=== PATIENT | male | born 1960 | race Caucasian/White ===

== ENCOUNTER → 2020-09-01 09:07 | Outpatient (BNVA) | payer MEDICARE, SELFPAY | PROVIDERS: PCP Internal Medicine; Visit Provider Physician Assistant | DX: Z76.89 Persons encountering health services in other specified circumstances (principal) ==

== ENCOUNTER → 2020-09-12 08:08 | Outpatient (BNVA) | payer MEDICARE, SELFPAY | PROVIDERS: PCP Internal Medicine; Referring Provider Internal Medicine; Visit Provider Dietitian, Registered | DX: Z76.89 Persons encountering health services in other specified circumstances (principal) ==

== ENCOUNTER → 2022-08-14 11:19 | Outpatient (BNVA) | payer MEDICARE, SELFPAY | PROVIDERS: PCP Nurse Practitioner Adult Health; Visit Provider Physician Assistant Surgical | DX: E66.3 Overweight (principal); Z90.3 Acquired absence of stomach [part of]; Z68.28 Body mass index [BMI] 28.0-28.9, adult | CPT/HCPCS: 99212 ==

== ENCOUNTER 2022-08-16 06:44 | Outpatient (REF) | payer MEDICARE, SELFPAY ==
[2022-08-16 06:49] LABS: MANUAL DIFF FLAG NO
[2022-08-16 08:03] LABS: Basophils Absolute Auto 0.1 X10*3/uL (0.0-0.2); Basophils Percent Auto 0.7 % (0-2); Eosinophils Absolute Auto 0.2 X10*3/uL (0.0-0.4); Eosinophils Percent Auto 2.1 % (0-4); Hematocrit 39.1 % (42.0-52.0); Hemoglobin 13.2 g/dl (14.0-18.0); Imm Gran Abs Auto 0.04 X10*3/uL (0.00-0.03); Imm Gran Pct Auto 0.6 % (0.0-0.4); Lymphocytes Absolute Auto 1.5 X10*3/uL (1.2-4.9); Mean Corpuscular HGB Conc 33.8 g/dl (31.0-36.0); Mean Corpuscular Hemoglobin 31.1 pg (27.0-33.0); Mean Platelet Volume 10.5 fL (9.4-12.4); Monocytes Absolute Auto 0.6 X10*3/uL (0.1-1.2); Neutrophils Absolute Auto 4.7 x10*3/uL (2.0-8.3); Neutrophils Percent Auto 66.6 % (45-73); Platelet Count 234 X10*3/uL (160-400); Red Blood Count 4.25 X10*6/uL (4.60-5.80); Red Cell Distribution Width 13.7 % (11.0-16.0)
[2022-08-16 08:18] LABS: Estimated Average Glucose 134 mg/dL; Hemoglobin A1c % 6.3 %
[2022-08-16 11:46] LABS: Folate 6.3 ng/mL (> or = 4.0); Vitamin B12 366 pg/mL (200-900)
[2022-08-16 14:55] LABS: Alanine Aminotransferase 11 U/L (0-40); Albumin Level 4.4 g/dL (3.5-5.0); Alkaline Phosphatase 76 U/L (39-117); Anion Gap 18 (12-20); Aspartate Amino Transferase 13 U/L (5-37); Bilirubin Total 0.5 mg/dL (0.0-1.0); Blood Urea Nitrogen 26 mg/dL (9-16); C Reactive Protein 0.46 mg/dL (< or = 0.50); Calcium 9.7 mg/dL (8.4-10.2); Carbon Dioxide 32 mmol/L (22-29); Chloride 103 mmol/L (96-108); Cholesterol 168 mg/dL; Estimated Glomerular Filt Rate 59; Ferritin 103 ng/mL (20-250); Glucose Random 125 mg/dL (60-115); HDL Cholesterol 74 mg/dL; Insulin 2 uU/mL (2-29); Iron 100 mcg/dL (45-160); LDL Cholesterol Calculated 78 mg/dl; Percent Iron Saturation 33 % (15-50); Potassium 4.5 mmol/L (3.3-5.1); Sodium 148 mmol/L (135-145); TSH reflex Free T4 4.11 uIU/mL (0.32-4.0); Total Iron Binding Capacity 301 mcg/dL (228-428); Total Protein 7.1 g/dL (6.5-8.0); Triglycerides 80 mg/dL; Unsaturated Iron Binding 201 ug/dL; Vitamin D 25-OH Total 38.6 ng/mL (>30)
[2022-08-16 16:04] LABS: Free T4 (Free Thyroxine) 0.93 ng/dL (0.71-1.85)
[2022-08-18 11:56] LABS: Calcium (PTHI) 9.5 mg/dL (8.6-10.3); PTHI 43 pg/mL (16-77)
[2022-08-21 06:47] LABS: Zinc 106 mcg/dL (60-130)
[2022-08-22 12:56] LABS: Vitamin B1 14 nmol/L (8-30)
[2022-08-23 19:41] LABS: Vitamin A 82 mcg/dL (38-98)
== END 2022-08-16 06:45 | disposition home or self-care (01) ==
LOC: HO.LAB 06:44
PROVIDERS: PCP Internal Medicine; Visit Provider Physician Assistant Surgical
DX: K91.2 Postsurgical malabsorption, not elsewhere classified (principal); Z90.3 Acquired absence of stomach [part of]
CPT/HCPCS: 36415; 80053; 80061; 82306; 82607; 82728; 82746; 83036; 83525; 83540; 83970; 84425; 84439; 84443; 84590; 84630; 85025; 86140

== ENCOUNTER 2022-08-23 09:47 | Outpatient (RCR) | payer MEDICARE, SELFPAY | END 2022-08-27 14:15 | disposition home or self-care (01) | LOC: HO.WCC 09:47 | PROVIDERS: PCP Internal Medicine; Visit Provider Physician Assistant | DX: Z09 Encounter for follow-up examination after completed treatment for conditions other than malignant neoplasm (principal); E11.610 Type 2 diabetes mellitus with diabetic neuropathic arthropathy; I10 Essential (primary) hypertension; I73.9 Peripheral vascular disease, unspecified; Z89.421 Acquired absence of other right toe(s); Z87.891 Personal history of nicotine dependence; Z79.84 Long term (current) use of oral hypoglycemic drugs; Z86.31 Personal history of diabetic foot ulcer | CPT/HCPCS: 99212 ==

== ENCOUNTER → 2022-09-11 14:00 | Outpatient (BNVA) | payer MEDICARE, SELFPAY | PROVIDERS: PCP Nurse Practitioner Adult Health; Visit Provider Physician Assistant Surgical | DX: E66.3 Overweight (principal); Z90.3 Acquired absence of stomach [part of]; Z68.28 Body mass index [BMI] 28.0-28.9, adult | CPT/HCPCS: 99212 ==

== ENCOUNTER → 2022-09-18 12:50 | Outpatient (BNVA) | payer MEDICARE, SELFPAY | PROVIDERS: PCP Internal Medicine; Visit Provider Internal Medicine | DX: I50.30 Unspecified diastolic (congestive) heart failure (principal); I48.0 Paroxysmal atrial fibrillation; G47.33 Obstructive sleep apnea (adult) (pediatric); Z79.82 Long term (current) use of aspirin; Z95.818 Presence of other cardiac implants and grafts; Z95.0 Presence of cardiac pacemaker | CPT/HCPCS: 93005; 99202 ==

== ENCOUNTER → 2022-09-27 09:21 | Outpatient (REF) | payer MEDICARE, SELFPAY ==
--- NOTE | 2022-09-27 09:24 | CA_ITS ---
Transthoracic Echocardiogram Patient (Last, First, Middle): Luca Crowe, Gender: Male Date of : 1960 Age: 61 Procedure Date: 09/27/2022 Procedure Type: Transthoracic Echocardiogram Location: OP Height: 190.5 cm Weight: 104.33 kg BSA: 2.33 m2 Heart Rate: bpm BP: 118 / 60 mmHg Tray Line Supervisor: Referring MD: Vitaliy Fields MD Brainer: Prudencio Alcantara MD Symptoms: I50.30 - Unspecified diastolic (congestive) heart failure Study Quality: Fair ECG Rhythm: Sinus Conclusions: - 1. Normal LV systolic function with mild LVH with pseudonormal filling pattern 2. Moderately dilated left atrium 3. Mild aortic and mitral regurgitation 4. Normal RV systolic pressure 5. Mildly dilated ascending aorta at 4.1 cm 6. No gross pericardial effusion Findings Left Ventricle Normal left ventricular size and systolic function. There is mildly increased left ventricular wall thickness. The visually estimated ejection fraction is between 60-65%. Spectral Doppler is indicative of a pseudonormal filling pattern. Right Ventricle Normal right ventricular cavity size and systolic function. There is a pacemaker wire seen in the right ventricle. Atria The left atrium is moderately dilated. There is no evidence of interatrial shunt. The right atrium is likely dilated. A pacemaker wire is identified in the right atrium. Aortic Valve There is mild calcification of the aortic valve. There is no aortic valve stenosis. There is trace (trivial) aortic valve regurgitation. Mitral Valve There is mild anterior and posterior mitral leaflet thickening. There is mild mitral valve regurgitation. There is no mitral valve stenosis. Pulmonic Valve The pulmonic valve was not well visualized. Tricuspid Valve Likely normal tricuspid valve structure and function. There is mild tricuspid valve regurgitation. The right ventricular systolic pressure is 31 mmHg. Normal right atrial pressure. There is no evidence of pulmonary hypertension. Great Vessels The pulmonary artery was not well visualized. There is mild dilatation of the ascending aorta measuring 4.10 cm. Venous The inferior vena cava is normal in size and collapses greater than 50% with inspiration. Pericardium/Pleural There is no evidence of pericardial effusion. Prior Study Comparison Changes noted compared to prior study dated: 07/25/2017. LVH is not moderate but mild. mild mitral regurgitation is noted. Ascending aorta is mildly dilated Measurements 2D Linear Measurements IVSd: 1.12 0.6-0.9/0.6-1.0 cm LVIDd: 5.14 3.9-5.3/4.2-5.9 cm LVIDd Index: 2.21 2.4-3.2/2.2-3.1 cm/m2 LVIDs: 3.00 2.0-3.6 cm LVPWd: 1.15 0.7-1.1 cm Ao Root: 4.10 2.1-3.5 cm LA Diam: 3.60 2.7-3.8/3.0-4.0 cm LAIDs Index: 1.55 1.5-2.3 cm/m2 LV Mass: 281.92 67-162/88-224 g LV Mass Index: 120.99 43-95/49-115 g/m2 LVOT Diam: 2.20 3.0+(-)1.3 cm 2D Systolic Function EF 4C: 59.40 >55% EF 2C: 62.30 >55% EF BiP: 61.20 >55% Mitral Valve MV Pk E: 0.94 MV PK A: 0.31 MV Decel Time: 371.00 E/A: 3.10 E'Lateral: 11.40 E'Medial: 9.68 E/E' Med: 9.70 E/E' Lat: 8.20 PHT: 109.00 MVA PHT: 2.02 Decel Candler: 2.52 Aortic Valve AoV Pk Indio: 1.28 AoV Mn Indio: 0.85 AoV VTI: 0.35 AoV Pk Grad: 7.00 Aov Mn Grad: 3.00 NATE Cont.VTI: 3.26 LVOT LVOT Pk Indio: 1.27 LVOT Mn [place]io: 0.82 LVOT VTI: 0.30 LVOT Pk Grad: 6.00 LVOT Mn Grad: 3.00 LVOT Diam: 2.20 LVOT Area: 3.80 Diastolic Function MV Pk E: 0.94 MV Pk A: 0.31 E/A: 3.10 E'Medial: 9.68 E/E' Med: 9.70 E' Laterial: 11.40 E/E' Lat: 8.20 Right Ventricle TAPSE (mm): 35.00 TVS' Indio: 15.00 Tricuspid Valve TR Pk Indio: 2.66 TR Pk Grad: 28.00 RA Press: 3.00 RVSP: 31.00 Great Vessels Aorta Ao Root-2D: 4.10 2.0-3.7 cm Ao Asc: 4.10 2.1-3.4 cm Pulmonary Valve PV Pk Indio: 0.91 Peak PV Grad: 3.00 Updated in Other Vendor System with Status of Final Prudencio Alcantara MD electronically signed on 09/28/2022 3:17:36 PM with status of Final
== END ==
LOC: HO.CARD 09:21
PROVIDERS: PCP Internal Medicine; Visit Provider Internal Medicine
DX: I50.30 Unspecified diastolic (congestive) heart failure (principal)
CPT/HCPCS: 93306

== ENCOUNTER → 2022-10-21 15:46 | Outpatient (BNVA) | payer MEDICARE, SELFPAY | PROVIDERS: PCP Internal Medicine; Visit Provider Physician Assistant Surgical | DX: Z98.84 Bariatric surgery status (principal) | CPT/HCPCS: Q3014 ==

== ENCOUNTER → 2022-12-09 14:36 | Outpatient (BNVA) | payer MEDICARE, SELFPAY | PROVIDERS: PCP Internal Medicine; Referring Provider Internal Medicine; Visit Provider Internal Medicine | DX: I50.30 Unspecified diastolic (congestive) heart failure (principal); I48.0 Paroxysmal atrial fibrillation; G47.33 Obstructive sleep apnea (adult) (pediatric); Z45.018 Encounter for adjustment and management of other part of cardiac pacemaker; Z79.82 Long term (current) use of aspirin | CPT/HCPCS: 93280; 99212 ==

== ENCOUNTER → 2022-12-12 16:22 | Outpatient (BNVA) | payer MEDICARE, SELFPAY | PROVIDERS: PCP Internal Medicine; Visit Provider Physician Assistant Surgical | DX: E66.3 Overweight (principal); Z98.84 Bariatric surgery status | CPT/HCPCS: Q3014 ==

== ENCOUNTER → 2022-12-19 16:04 | Outpatient (BNVA) | payer MEDICARE, SELFPAY | PROVIDERS: PCP Internal Medicine; Visit Provider Physician Assistant Surgical | DX: R11.0 Nausea (principal); E66.3 Overweight; Z68.29 Body mass index [BMI] 29.0-29.9, adult; Z98.84 Bariatric surgery status; Z79.84 Long term (current) use of oral hypoglycemic drugs | CPT/HCPCS: 99212 ==

== ENCOUNTER → 2023-01-17 16:29 | Outpatient (BNVA) | payer MEDICARE, SELFPAY | PROVIDERS: PCP Internal Medicine; Visit Provider Physician Assistant Surgical | DX: R11.0 Nausea (principal); Z98.84 Bariatric surgery status | CPT/HCPCS: 99212; Q3014 ==

== ENCOUNTER 2023-01-20 16:02 | Outpatient (REF) | payer MEDICARE, SELFPAY ==
[2023-01-20 17:38] LABS: MANUAL DIFF FLAG NO
[2023-01-20 18:00] LABS: Basophils Absolute Auto 0.1 X10*3/uL (0.0-0.2); Basophils Percent Auto 0.7 % (0-2); Eosinophils Absolute Auto 0.3 X10*3/uL (0.0-0.4); Eosinophils Percent Auto 4.4 % (0-4); Hematocrit 37.1 % (42.0-52.0); Hemoglobin 12.1 g/dl (14.0-18.0); Imm Gran Abs Auto 0.03 X10*3/uL (0.00-0.03); Imm Gran Pct Auto 0.4 % (0.0-0.4); Lymphocytes Absolute Auto 1.5 X10*3/uL (1.2-4.9); Lymphocytes Percent Auto 21.3 % (20-40); Mean Corpuscular HGB Conc 32.6 g/dl (31.0-36.0); Mean Corpuscular Hemoglobin 30.9 pg (27.0-33.0); Mean Corpuscular Volume 94.9 fL (80.0-98.0); Monocytes Absolute Auto 0.5 X10*3/uL (0.1-1.2); Monocytes Percent Auto 7.4 % (2-11); Neutrophils Absolute Auto 4.6 x10*3/uL (2.0-8.3); Neutrophils Percent Auto 65.8 % (45-73); Platelet Count 230 X10*3/uL (160-400); Red Blood Count 3.91 X10*6/uL (4.60-5.80); Red Cell Distribution Width 13.2 % (11.0-16.0)
[2023-01-20 18:40] LABS: Alanine Aminotransferase 27 U/L (0-40); Albumin Level 4.3 g/dL (3.5-5.0); Alkaline Phosphatase 56 U/L (39-117); Anion Gap 16 (12-20); Aspartate Amino Transferase 26 U/L (5-37); Bilirubin Total 0.5 mg/dL (0.0-1.0); Blood Urea Nitrogen 41 mg/dL (9-16); C Reactive Protein 0.35 mg/dL (< or = 0.50); Calcium 9.3 mg/dL (8.4-10.2); Carbon Dioxide 30 mmol/L (22-29); Chloride 102 mmol/L (96-108); Estimated Glomerular Filt Rate 42; Glucose Random 110 mg/dL (60-115); Iron 72 mcg/dL (45-160); Percent Iron Saturation 24 % (15-50); Potassium 4.6 mmol/L (3.3-5.1); Sodium 143 mmol/L (135-145); Total Iron Binding Capacity 294 mcg/dL (228-428); Total Protein 6.8 g/dL (6.5-8.0); Unsaturated Iron Binding 222 ug/dL
[2023-01-20 19:10] LABS: Ferritin 65 ng/mL (20-250); Insulin 4 uU/mL (2-29); TSH reflex Free T4 3.09 uIU/mL (0.32-4.0); Vitamin B12 291 pg/mL (200-900); Vitamin D 25-OH Total 43.6 ng/mL (>30)
[2023-01-21 05:36] LABS: Estimated Average Glucose 146 mg/dL; Hemoglobin A1c % 6.7 %
[2023-01-23 18:04] LABS: Calcium (PTHI) 9.6 mg/dL (8.6-10.3); PTHI 48 pg/mL (16-77)
[2023-01-27 15:10] LABS: Zinc 53 mcg/dL (60-130)
[2023-01-29 21:58] LABS: Vitamin A 81 mcg/dL (38-98)
[2023-01-30 06:13] LABS: Vitamin B1 9 nmol/L (8-30)
== END 2023-01-20 16:03 | disposition home or self-care (01) ==
LOC: HO.LAB 16:02
PROVIDERS: Visit Provider Physician Assistant Surgical
DX: K91.2 Postsurgical malabsorption, not elsewhere classified (principal); Z98.84 Bariatric surgery status
CPT/HCPCS: 36415; 80053; 82306; 82607; 82728; 82746; 83036; 83525; 83540; 83970; 84425; 84443; 84590; 84630; 85025; 86140

== ENCOUNTER → 2023-03-21 16:15 | Outpatient (BNVA) | payer MEDICARE, SELFPAY | PROVIDERS: PCP Internal Medicine; Visit Provider Physician Assistant Surgical | DX: E66.3 Overweight (principal); Z98.84 Bariatric surgery status | CPT/HCPCS: Q3014 ==

== ENCOUNTER → 2023-05-15 14:53 | Outpatient (REF) | payer MEDICARE, SELFPAY ==
--- NOTE | 2023-05-15 14:56 | HM_ITS ---
Conclusion: 1. Patient was monitored for total period of 3 days 2. Baseline was normal sinus rhythm with average heart rate of 78 beats per minute 3. No significant pauses noted 4. Frequent PVCs noted, mostly isolated with total burden of 3% with 11 nonsustained VT episodes, fastest of 189 beats per minute and longest of 7 beats 5. No patient reported events MTDD
== END ==
LOC: HO.CARD 14:53
PROVIDERS: PCP Internal Medicine; Visit Provider Nurse Practitioner
DX: I48.0 Paroxysmal atrial fibrillation (principal)
CPT/HCPCS: 93242

== ENCOUNTER → 2023-05-15 14:56 | Outpatient (BNV) | payer MEDICARE, SELFPAY | PROVIDERS: PCP Internal Medicine; Visit Provider Internal Medicine Cardiovascular Disease | DX: I49.3 Ventricular premature depolarization (principal) | CPT/HCPCS: 93244 ==

== ENCOUNTER 2023-06-03 15:05 | Outpatient (AMB) | payer MEDICARE, SELFPAY ==
[2023-06-03 15:14] VITALS: BP 130/54; PULSE 50; BMI 29.2
--- NOTE | 2023-06-03 15:14 | MHC.OFFVIS ---
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 Accompanied by: Self / Same As Patient Allergies lisinopril Allergy (Mild, Verified 06/03/23 15:16) kidney trouble Medication List - Last Reconciled 06/03/23 by Vitaliy Fields MD aspirin (Adult Aspirin Regimen) 81 mg PO DAILY bumetanide 2 mg PO DAILY cholecalciferol (vitamin D3) 25 mcg PO DAILY donepezil 10 mg PO DAILY glipizide ER 2.5 mg PO .every other day iron,carbonyl-vitamin C 65 mg iron- 125 mg (Vitron-C) 1 tab PO BEDTIME metformin 1,000 mg PO BID omega 1-snk-vrn-fish oil 1,000 mg (120 mg-180 mg) (Fish Oil) 1 cap PO DAILY pantoprazole 40 mg PO DAILY pravastatin 20 mg PO DAILY pregabalin (Lyrica) 150 mg PO BID zinc gluconate 10 mg PO DAILY HPI HPI Comments History of Present Illness Details Luca returns for follow-up. To recall, he has seen several cardiologists and most recently was following at [facility]. As it is too far and inconvenient, he would like to switch back to us. Prior to this, he also saw [facility]. He has long-standing atrial fibrillation and has had ablation for the same. From that regard, he has been stable. Otherwise, due to gastrointestinal bleeding, he underwent Watchman device as well. Remains on aspirin. Has had bariatric surgery with weight loss. Also has chronic heart failure on long-term diuretics. Overall, he is doing good. No new complaints. No cardiac symptoms at all. [facility] Medical History (Updated 12/19/22 @ 16:44 by POOJA Gautam) (HFpEF) heart failure with preserved ejection fraction History of amputation of toe Hx of cardiac pacemaker Obstructive sleep apnea Pacemaker Paroxysmal atrial fibrillation Presence of Watchman left atrial appendage closure device Surgical History History of amputation of lesser toe Hx of colonoscopy Hx of colonoscopy Hx of foot surgery Hx of gastric bypass Hx of hand surgery Hx of prior ablation treatment Hx of total knee replacement Family History Father Emphysema lung Mother Heart failure Son Ulcerative colitis Brother No problems noted. Sister No problems noted. Sister No problems noted. Social History (Updated 06/03/23 @ 15:17 by Tracy Nieves) Alcohol intake: current Alcohol intake frequency: holidays/special occasions only Patient Tobacco Use Status: Current someday Tobacco user Tobacco use type: Cigar Review of Systems Const Denies weakness ENT Denies dizziness Card Denies chest pain, Denies chest pain with activity, Denies syncope, Denies rapid heart rate, Denies pedal edema, Denies edema, Denies leg edema, Denies lightheadedness, Denies palpitations, Denies dyspnea, Denies dyspnea on exertion and Denies orthopnea Resp Denies cough, Denies dyspnea and Denies dyspnea on exertion GI Denies hematochezia and Denies change in stool character Musc Denies abnormal gait, Denies muscle cramps, Denies muscle weakness, Denies numbness, Denies radiating pain into limb and Denies tingling Neuro Denies abnormal gait, Denies dizziness, Denies syncope, Denies numbness, Denies tingling and Denies weakness Endo Denies palpitations Physical Exam Vital Signs: Last Vital Signs Pulse 50 06/03/23 15:14 BP 130/54 L 06/03/23 15:14 BMI result Body Mass Index 29.2 Const General: comfortable and no acute distress Orientation/consciousness: patient oriented x3 HEENT Other: Unremarkable Head: Yes normal to inspection Neck Neck: Yes normal visual inspection Chest Chest palpation & inspection: normal inspection of the chest Resp Auscultation: clear to auscultation bilaterally Cardio Palpation: normal PMI Heart sounds: S1 normal heart sound present, S2 normal heart sound present, no gallops, no murmurs and no rubs GI Palpation (GI): Soft to palpation Back/Spine/Pelvis Other: unremarkable Skin General skin exam: no rashes or lesions noted Neuro General: patient oriented x3 Extrem Other: 1+ edema General: Yes normal to inspection Psych Mental Status: mental status grossly normal Assessment & Plan Assessment & Plan (1) (HFpEF) heart failure with preserved ejection fraction: Code(s): I50.30 - Unspecified diastolic (congestive) heart failure Plan: Stable. No changes. (2) Paroxysmal atrial fibrillation: Code(s): I48.0 - Paroxysmal atrial fibrillation Plan: No atrial fibrillation on recent Holter. It seems that he was on metoprolol, but due to chronotropic incompetence, stopped at [facility]. Otherwise, no further changes at this time. In the Holter, there is a concern for NSVT but difficult to say as some of these are probably paced beats. Patient himself has absolutely no symptoms. Last perfusion imaging is from 2016 and that showed no ischemic findings. Last echocardiogram is from 08/2022 and that showed preserved LVEF, 60-65%. (3) Presence of Watchman left atrial appendage closure device: Code(s): Z95.818 - Presence of other cardiac implants and grafts Plan: Continue long-term aspirin. (4) Pacemaker: Code(s): Z95.0 - Presence of cardiac pacemaker Plan: Need to transfer device to our practice. Patient states that the remote transmitter is also not working properly. Advised to contact pacemaker company to resolve. (5) Obstructive sleep apnea: Code(s): G47.33 - Obstructive sleep apnea (adult) (pediatric) Plan: On BiPAP. Coding Level of Care Code Est Pt Level 4 (37175) Diagnoses (HFpEF) heart failure with preserved ejection fraction I50.30 Paroxysmal atrial fibrillation I48.0 Presence of Watchman left atrial appendage closure device Z95.818 Pacemaker Z95.0 Obstructive sleep apnea G47.33
== END 2023-06-03 15:38 | disposition home or self-care (01) ==
PROVIDERS: PCP Internal Medicine; Referring Provider Internal Medicine; Visit Provider Internal Medicine
DX: I50.30 Unspecified diastolic (congestive) heart failure (principal); I48.0 Paroxysmal atrial fibrillation; Z95.818 Presence of other cardiac implants and grafts; Z95.0 Presence of cardiac pacemaker; G47.33 Obstructive sleep apnea (adult) (pediatric)
CPT/HCPCS: 99214

== ENCOUNTER → 2023-06-03 15:05 | Outpatient (BNVA) | payer MEDICARE, SELFPAY | PROVIDERS: PCP Internal Medicine; Referring Provider Internal Medicine; Visit Provider Internal Medicine | DX: I50.30 Unspecified diastolic (congestive) heart failure (principal); I48.0 Paroxysmal atrial fibrillation; G47.33 Obstructive sleep apnea (adult) (pediatric); Z95.0 Presence of cardiac pacemaker; Z95.818 Presence of other cardiac implants and grafts | CPT/HCPCS: 99212 ==

== ENCOUNTER 2023-07-08 16:07 | Outpatient (AMB) | payer MEDICARE, SELFPAY ==
--- NOTE | 2023-07-08 16:13 | MHC.OFFVISWM ---
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 [employer] Required: No Allergies lisinopril Allergy (Mild, Verified 07/08/23 16:15) kidney trouble Medication List - Last Reconciled 07/08/23 by POOJA Iqbal aspirin (Adult Aspirin Regimen) 81 mg PO DAILY bumetanide 2 mg PO DAILY cholecalciferol (vitamin D3) 25 mcg PO DAILY donepezil 10 mg PO DAILY glipizide ER 2.5 mg PO .every other day iron,carbonyl-vitamin C 65 mg iron- 125 mg (Vitron-C) 1 tab PO BEDTIME metformin 1,000 mg PO BID omega 6-srx-ysw-fish oil 1,000 mg (120 mg-180 mg) (Fish Oil) 1 cap PO DAILY pantoprazole 40 mg PO DAILY pravastatin 20 mg PO DAILY pregabalin (Lyrica) 150 mg PO BID zinc gluconate 10 mg PO DAILY HPI HPI Comments History of Present Illness Details 62-year-old male presents for 5 year 6 month follow-up of gastric bypass performed 11/11/2017. Taking a bariatric MVI and lucrecia + D No NSAIDS except low dose asa from hx AF w hx of watchman inserted. Started smoking cigars, 1-2 per day 1 etoh beverage nightly with 2 on weekends No abdominal pain. No darkened stools. States his goal is to reach his ideal weight of 220 or 215 pounds. 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 Has gym membership at [employer] [facility] Medical History Obstructive sleep apnea Paroxysmal atrial fibrillation (HFpEF) heart failure with preserved ejection fraction Presence of Watchman left atrial appendage closure device Pacemaker Hx of cardiac pacemaker History of amputation of toe Surgical History Hx of hand surgery Hx of colonoscopy Hx of total knee replacement Hx of gastric bypass History of amputation of lesser toe Hx of colonoscopy Hx of prior ablation treatment Hx of foot surgery Family History Father Emphysema lung Mother Heart failure Son Ulcerative colitis Brother No problems noted. Sister No problems noted. Sister No problems noted. Social History Alcohol intake: current Alcohol intake frequency: a few times a week Patient Tobacco Use Status: Current someday Tobacco user Tobacco use type: Cigar Physical Exam Vital Signs: Last Vital Signs Temp 98.3 F 07/08/23 16:17 Pulse 89 07/08/23 16:17 BP 160/70 H 07/08/23 16:17 Pulse Ox 97 07/08/23 16:17 Oxygen Delivery Method Room Air 07/08/23 16:17 BMI result Body Mass Index 28.5 Const General: healthy appearing and no acute distress Resp Effort & Inspection: normal respiratory effort Auscultation: clear to auscultation bilaterally Cardio Rate: regular rate Rhythm: regular rhythm GI Auscultation: normal bowel sounds Extrem General: Yes normal to inspection Assessment & Plan Assessment & Plan (1) S/P gastric bypass: Code(s): Z98.84 - Bariatric surgery status Plan: Encouraged to stop tobacco and etoh Change meal plan RTD shake in am and apple sandwich/iranian yogurt, eliminate soda 4 oz protein and 4 oz veg Increase cardio at gym RTC for 6 yr follow up in October Coding Level of Care Code Est Pt Level 3 (26828) Diagnoses S/P gastric bypass Z98.84
[2023-07-08 16:17] VITALS: BP 160/70; PULSE 89; TEMP 36.8; O2SAT 97; BMI 28.5
== END 2023-07-08 17:03 | disposition home or self-care (01) ==
PROVIDERS: PCP Internal Medicine; Visit Provider Physician Assistant Surgical
DX: E66.3 Overweight (principal); Z68.28 Body mass index [BMI] 28.0-28.9, adult; Z98.84 Bariatric surgery status
CPT/HCPCS: 99213

== ENCOUNTER → 2023-07-08 16:07 | Outpatient (BNVA) | payer MEDICARE, SELFPAY | PROVIDERS: PCP Internal Medicine; Visit Provider Physician Assistant Surgical | DX: Z98.84 Bariatric surgery status (principal) | CPT/HCPCS: 99212 ==

== ENCOUNTER 2023-12-08 14:54 | Outpatient (AMB) | payer MEDICARE, SELFPAY ==
--- NOTE | 2023-12-08 15:30 | MHC.OFFVIS ---
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 Allergies lisinopril Allergy (Mild, Verified 12/08/23 15:35) kidney trouble Medication List - Last Reconciled 12/08/23 by MICAH Wong amlodipine 10 mg PO DAILY aspirin (Adult Aspirin Regimen) 81 mg PO DAILY bumetanide 2 mg PO DAILY cholecalciferol (vitamin D3) 25 mcg PO DAILY donepezil 10 mg PO DAILY glipizide ER 2.5 mg PO .every other day iron,carbonyl-vitamin C 65 mg iron- 125 mg (Vitron-C) 1 tab PO BEDTIME metformin 1,000 mg PO BID metoprolol succinate ER 25 mg PO DAILY omega 6-xvc-ukd-fish oil 1,000 mg (120 mg-180 mg) (Fish Oil) 1 cap PO DAILY pantoprazole 40 mg PO DAILY pravastatin 20 mg PO DAILY pregabalin (Lyrica) 150 mg PO BID zinc gluconate 10 mg PO DAILY HPI 6 month follow up w/ device check HPI Details Luca is a 63-year-old male with past medical history of hypertension, paroxysmal atrial fibrillation, Watchman device, heart failure with preserved EF, obstructive sleep apnea with CPAP use, pacemaker who presents for follow-up. Today he reports that he had been admitted to the hospital recently with infection in his foot following an injury. He states that during the admission his blood pressure was as high as 170s systolic. He says they added amlodipine and metoprolol. His blood pressure with no concerning symptoms. No chest discomfort, shortness of breath, palpitations, lightheadedness, presyncope, syncope, PND, orthopnea or edema. 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 [facility] Medical History Obstructive sleep apnea Paroxysmal atrial fibrillation (HFpEF) heart failure with preserved ejection fraction Presence of Watchman left atrial appendage closure device Pacemaker Hx of cardiac pacemaker History of amputation of toe Surgical History History of amputation of toe Hx of hand surgery Hx of colonoscopy Hx of total knee replacement Hx of gastric bypass History of amputation of lesser toe Hx of colonoscopy Hx of prior ablation treatment Hx of foot surgery Family History Father Emphysema lung Mother Heart failure Son Ulcerative colitis Brother No problems noted. Sister No problems noted. Sister No problems noted. Social History Alcohol intake: current Alcohol intake frequency: a few times a week Patient Tobacco Use Status: Current someday Tobacco user Tobacco use type: Cigar Review of Systems Const All systems reviewed & are unremarkable except as noted in HPI and below ENT Denies dizziness Card Denies chest pain, Denies chest pain at rest, Denies chest pain with activity, Denies rapid heart rate, Denies pedal edema, Denies edema, Denies leg edema, Denies lightheadedness, Denies palpitations, Denies dyspnea, Denies dyspnea on exertion and Denies orthopnea Resp Denies cough, Denies dyspnea and Denies dyspnea on exertion GI Denies hematochezia and Denies change in stool character Musc Denies abnormal gait, Denies limited range of motion, Denies muscle cramps, Denies muscle weakness, Denies numbness, Denies radiating pain into limb, Denies stiffness and Denies tingling Neuro Denies abnormal gait, Denies dizziness, Denies numbness and Denies tingling Endo Denies palpitations Physical Exam Vital Signs: Last Vital Signs Pulse 64 12/08/23 15:31 BP 120/64 12/08/23 15:31 BMI result Body Mass Index 31.5 Const General: cooperative, healthy appearing, comfortable and no acute distress Orientation/consciousness: patient oriented x3 Neck Neck: Yes normal visual inspection and Yes no JVD Resp Effort & Inspection: normal respiratory effort Auscultation: clear to auscultation bilaterally, no crackles, no rales, no rhonchi and no wheezes Cardio Jugular venous distension: no JVD Rate: regular rate Rhythm: regular rhythm Heart sounds: S1 normal heart sound present, S2 normal heart sound present, no murmurs and no rubs Neuro General: patient oriented x3 Extrem General: Yes normal to inspection, No no pedal edema and No calf tenderness Psych Appearance: grossly normal Mental Status: mental status grossly normal Speech and movement: Normal speech and movement present Office Procedures Cardiac Device Check Cardiac Device Check Details: Today, read by me, Medtronic dual-chamber pacemaker interrogation today, battery 3 years, DDD are mode, low rate 60, V paced 5.7%, a paced 21.4%, underlying sinus rhythm, 3 episodes high V rates, very brief AF, 1 ST/SVT, RA threshold 0.75 volts at 0.4 milliseconds, RV threshold 0.75 volts at 0.4 milliseconds [id number] Cardiac Device Check, pacemaker dual lead Procedure code (CPT) selection complete EKG Details: Today, read by me, atrial paced, ventricular sensed, rate 64, QTC 435 milliseconds [id number], Complete Assessment & Plan Assessment & Plan (1) Paroxysmal atrial fibrillation: Code(s): I48.0 - Paroxysmal atrial fibrillation Plan: History of paroxysmal atrial fibrillation. Currently suppressed. Last Holter monitor done 05/15/2023 showed no AFib. Last echo 09/27/2022 showed EF 60-65%, mild LVH, moderately dilated left atrium, mild AR, mild MR, ascending aorta 4.1 cm. He has not noticing any heart palpitations. Device interrogation today showing only very brief episodes of AF. Will continue on metoprolol for heart rate control. He is not requiring anticoagulation as he has a Watchman device in place. Continue aspirin. (2) Presence of Watchman left atrial appendage closure device: Code(s): Z95.818 - Presence of other cardiac implants and grafts Plan: As above (3) (HFpEF) heart failure with preserved ejection fraction: Code(s): I50.30 - Unspecified diastolic (congestive) heart failure Plan: History of heart failure with preserved EF. No clinical signs of heart failure on examination. He denies any issues with shortness of breath or leg edema. Continue Bumex 2 mg daily. Signs and symptoms of heart failure reviewed with him. (4) Pacemaker: Code(s): Z95.0 - Presence of cardiac pacemaker Plan: Medtronic dual-chamber pacemaker in place. Functioning normally on interrogation today. Next office interrogation due in 6 months. He has a remote monitor which has not been working. He will call the company to request another 1. (5) Obstructive sleep apnea: Code(s): G47.33 - Obstructive sleep apnea (adult) (pediatric) Plan: He reports compliance with his CPAP mask. Plan Time spent on chart review, documentation, interview and assessment Coding Level of Care Code Est Pt Level 4 (55734) Diagnoses Paroxysmal atrial fibrillation I48.0 Presence of Watchman left atrial appendage closure device Z95.818 (HFpEF) heart failure with preserved ejection fraction I50.30 Pacemaker Z95.0 Obstructive sleep apnea G47.33 CPT Codes Cardiac Device Check - Cardiac Device 2: [id number]-VT Cardiac Device Check, pacemaker dual lead ([id number]) EKG - CPT: 98501-[id number], Complete ([id number]) Time Spent (min) 28
[2023-12-08 15:31] VITALS: BP 120/64; PULSE 64; BMI 31.5
== END 2023-12-08 16:17 | disposition home or self-care (01) ==
PROVIDERS: PCP Internal Medicine; Visit Provider Nurse Practitioner Family
DX: I48.0 Paroxysmal atrial fibrillation (principal); Z95.0 Presence of cardiac pacemaker; I50.30 Unspecified diastolic (congestive) heart failure; Z95.818 Presence of other cardiac implants and grafts
CPT/HCPCS: 93280; 99214

== ENCOUNTER → 2023-12-08 14:54 | Outpatient (BNVA) | payer MEDICARE, SELFPAY | PROVIDERS: PCP Internal Medicine; Visit Provider Nurse Practitioner Family | DX: Z45.018 Encounter for adjustment and management of other part of cardiac pacemaker (principal); I48.0 Paroxysmal atrial fibrillation; I50.30 Unspecified diastolic (congestive) heart failure; G47.33 Obstructive sleep apnea (adult) (pediatric); Z95.818 Presence of other cardiac implants and grafts | CPT/HCPCS: 93005; 93280; 99212 ==

== ENCOUNTER 2024-02-28 10:41 | Outpatient (REF) | payer MEDICARE, SELFPAY ==
[2024-02-28 11:36] LABS: B Type Natriuretic Peptide 55 pg/mL (<100)
[2024-02-28 11:38] LABS: Anion Gap 18 (12-20); Blood Urea Nitrogen 50 mg/dL (9-16); Calcium 9.5 mg/dL (8.4-10.2); Carbon Dioxide 29 mmol/L (22-29); Chloride 100 mmol/L (96-108); Estimated Glomerular Filt Rate 40; Glucose Random 227 mg/dL (60-115); Potassium 4.3 mmol/L (3.3-5.1); Sodium 143 mmol/L (135-145)
== END 2024-02-28 10:42 | disposition home or self-care (01) ==
LOC: HO.LAB 10:41
PROVIDERS: PCP Internal Medicine; Visit Provider Nurse Practitioner Family
DX: I50.30 Unspecified diastolic (congestive) heart failure (principal)
CPT/HCPCS: 36415; 80048; 83880

== ENCOUNTER 2024-06-07 14:49 | Outpatient (AMB) | payer MEDICARE, SELFPAY ==
[2024-06-07 15:07] VITALS: BP 126/70; PULSE 72; BMI 29.5
--- NOTE | 2024-06-07 15:07 | MHC.OFFVIS ---
Vital Signs 06/07/24 15:07 Height 6 ft 3 in Weight 235 lb 14.314 oz BMI 29.5 BP 126/70 Blood Pressure Location Lt brachial Position Sitting Pulse 72 Pulse Source Pulse Oximeter Intake Visit Reasons: 6 mth f/up w/ med ck DC Allergies lisinopril Allergy (Mild, Verified 12/08/23 15:35) kidney trouble Medication List - Last Reconciled 06/07/24 by Vitaliy Fields MD amlodipine 10 mg PO DAILY aspirin (Adult Aspirin Regimen) 81 mg PO DAILY bumetanide 2 mg PO DAILY 90 days cholecalciferol (vitamin D3) 25 mcg PO DAILY donepezil 10 mg PO DAILY empagliflozin (Jardiance) 25 mg PO DAILY glipizide ER 2.5 mg PO .every other day metformin 500 mg PO BID metoprolol succinate ER 25 mg PO DAILY omega 8-tuz-sry-fish oil 1,000 mg (120 mg-180 mg) (Fish Oil) 1 cap PO DAILY pantoprazole 40 mg PO DAILY pravastatin 20 mg PO DAILY pregabalin (Lyrica) 150 mg PO BID zinc gluconate 10 mg PO DAILY HPI Comments Details: Luca returns for follow-up. To recall, he has seen several cardiologists and most recently was following at [facility] till around 2021. However, because of the distance involved, he wanted to have local Cardiology and hence started seeing us. He also saw [facility] prior to that. Any case, he has a history of longstanding atrial fibrillation and has undergone several cardioversions and ablations. In addition, history of gastrointestinal bleeding and hence has had Watchman device. History of bariatric surgery with weight loss. Chronic heart failure on long-term diuretics. Overall, he states he is generally okay but today, he is in atrial flutter with rapid rate. In fact, he has been this way for many months. As there is no remote monitoring, we were not aware of this. Some nonspecific symptoms but he states he was not truly aware of this. [facility] Medical History Obstructive sleep apnea Paroxysmal atrial fibrillation (HFpEF) heart failure with preserved ejection fraction Presence of Watchman left atrial appendage closure device Pacemaker Hx of cardiac pacemaker History of amputation of toe Surgical History History of amputation of toe Hx of hand surgery Hx of colonoscopy Hx of total knee replacement Hx of gastric bypass History of amputation of lesser toe Hx of colonoscopy Hx of prior ablation treatment Hx of foot surgery Family History Father Emphysema lung Mother Heart failure Son Ulcerative colitis Brother No problems noted. Sister No problems noted. Sister No problems noted. Social History Alcohol intake: current Alcohol intake frequency: a few times a week Patient Tobacco Use Status: Current someday Tobacco user Tobacco use type: Cigar Review of Systems Const Denies weakness ENT Denies dizziness Card Denies chest pain, Denies chest pain with activity, Denies syncope, Denies rapid heart rate, Denies pedal edema, Denies edema, Denies leg edema, Denies lightheadedness, Denies palpitations, Denies dyspnea, Denies dyspnea on exertion and Denies orthopnea Resp Denies cough, Denies dyspnea and Denies dyspnea on exertion GI Denies hematochezia and Denies change in stool character Musc Denies abnormal gait, Denies muscle cramps, Denies muscle weakness, Denies numbness, Denies radiating pain into limb and Denies tingling Neuro Denies abnormal gait, Denies dizziness, Denies syncope, Denies numbness, Denies tingling and Denies weakness Endo Denies palpitations Physical Exam Vital Signs: Last Vital Signs Pulse 72 06/07/24 15:07 BP 126/70 06/07/24 15:07 BMI result Body Mass Index 29.5 Const General: comfortable and no acute distress Orientation/consciousness: patient oriented x3 HEENT Other: Unremarkable Head: Yes normal to inspection Neck Neck: Yes normal visual inspection Chest Chest palpation & inspection: normal inspection of the chest Resp Auscultation: clear to auscultation bilaterally Cardio Palpation: normal PMI Heart sounds: S1 normal heart sound present, S2 normal heart sound present, no gallops, no murmurs and no rubs GI Palpation (GI): Soft to palpation Back/Spine/Pelvis Other: unremarkable Skin General skin exam: no rashes or lesions noted Neuro General: patient oriented x3 Extrem General: Yes normal to inspection Psych Mental Status: mental status grossly normal Office Procedures EKG Details: EKG with atrial flutter with a rate of 119/Min. [id number]-[id number], Complete Assessment & Plan Assessment & Plan (1) Paroxysmal atrial fibrillation: Code(s): I48.0 - Paroxysmal atrial fibrillation Category: Medical Plan: History of prior cardioversions and ablations. Today, he is in atrial flutter with rapid rate. However, denies any overt symptoms. We will go up on the beta-leeroy dosing. Currently he is on metoprolol 25 mg daily. We can increase that to 100 mg daily. Hold off on Amlodipine to avoid lowering the blood pressure too much. With increase in beta-leeroy dose, we can hopefully at least try to control the rate. Otherwise, he needs definitive therapy which may involve TATIANNA/cardioversion +/-another ablation. As he has had prior EP care from [facility], he would like to return there. I suggested that he contacts them as soon as possible. Last perfusion imaging is from 2016 and that showed no ischemic findings. Last echocardiogram is from 08/2022 and that showed preserved LVEF, 60-65%. (2) (HFpEF) heart failure with preserved ejection fraction: Code(s): I50.30 - Unspecified diastolic (congestive) heart failure Category: Medical Plan: Stable. No changes. (3) Presence of Watchman left atrial appendage closure device: Code(s): Z95.818 - Presence of other cardiac implants and grafts Category: Medical Plan: Continue long-term aspirin. (4) Pacemaker: Code(s): Z95.0 - Presence of cardiac pacemaker Category: Medical Plan: Unfortunately, still does not have remote monitoring set up as he states he just does not work and keeps giving error messages. He will need to contact the support line. (5) Obstructive sleep apnea: Code(s): G47.33 - Obstructive sleep apnea (adult) (pediatric) Category: Medical Plan: On BiPAP. Medications: New metoprolol tartrate 50 mg PO BID 60 tabs 5RF 30 days Coding Level of Care Code Est Pt Level 4 (98031) Diagnoses Paroxysmal atrial fibrillation I48.0 (HFpEF) heart failure with preserved ejection fraction I50.30 Presence of Watchman left atrial appendage closure device Z95.818 Pacemaker Z95.0 Obstructive sleep apnea G47.33 CPT Codes EKG - CPT: 30402-[id number], Complete ([id number])
== END 2024-06-07 15:36 | disposition home or self-care (01) ==
PROVIDERS: PCP Internal Medicine; Visit Provider Internal Medicine
DX: I48.0 Paroxysmal atrial fibrillation (principal); I50.30 Unspecified diastolic (congestive) heart failure; Z95.818 Presence of other cardiac implants and grafts; Z95.0 Presence of cardiac pacemaker; G47.33 Obstructive sleep apnea (adult) (pediatric)
CPT/HCPCS: 93010; 93280; 99214

== ENCOUNTER → 2024-06-07 14:49 | Outpatient (BNVA) | payer MEDICARE, SELFPAY | PROVIDERS: PCP Internal Medicine; Visit Provider Internal Medicine | DX: I48.0 Paroxysmal atrial fibrillation (principal); I50.30 Unspecified diastolic (congestive) heart failure; G47.33 Obstructive sleep apnea (adult) (pediatric); Z45.018 Encounter for adjustment and management of other part of cardiac pacemaker; Z95.818 Presence of other cardiac implants and grafts | CPT/HCPCS: 93005; 93280; 99212 ==

== ENCOUNTER 2024-07-21 16:06 | Outpatient (REF) | payer MEDICARE, SELFPAY ==
[2024-07-21 16:46] LABS: Hematocrit 42.1 % (42.0-52.0); Hemoglobin 14.4 g/dl (14.0-18.0); Mean Corpuscular HGB Conc 34.2 g/dl (31.0-36.0); Mean Corpuscular Hemoglobin 33.7 pg (27.0-33.0); Mean Corpuscular Volume 98.6 fL (80.0-98.0); Mean Platelet Volume 10.8 fL (9.4-12.4); Platelet Count 175 X10*3/uL (160-400); Red Blood Count 4.27 X10*6/uL (4.60-5.80); Red Cell Distribution Width 13.9 % (11.0-16.0); White Blood Count 7.8 X10*3/uL (4.8-10.8)
[2024-07-21 17:09] LABS: Anion Gap 15 (12-20); Blood Urea Nitrogen 47 mg/dL (9-16); Calcium 9.2 mg/dL (8.4-10.2); Carbon Dioxide 29 mmol/L (22-29); Chloride 102 mmol/L (96-108); Estimated Glomerular Filt Rate 54; Glucose Random 259 mg/dL (60-115); Potassium 4.5 mmol/L (3.3-5.1); Sodium 141 mmol/L (135-145)
== END 2024-07-21 16:07 | disposition home or self-care (01) ==
LOC: HO.LAB 16:06
PROVIDERS: PCP Internal Medicine; Visit Provider Internal Medicine
DX: I48.0 Paroxysmal atrial fibrillation (principal)
CPT/HCPCS: 36415; 80048; 85027

== ENCOUNTER → 2024-08-05 13:40 | Outpatient (REF) | payer MEDICARE, SELFPAY ==
--- NOTE | 2024-08-05 13:49 | CA_ITS ---
Transthoracic Echocardiogram Patient (Last, First, Middle): Luca Crowe, Gender: Male Date of : 1960 Age: 63 Procedure Date: 08/05/2024 Procedure Type: Transthoracic Echocardiogram Location: OP Height: 190.5 cm Weight: 104.33 kg BSA: 2.33 m2 Heart Rate: 126 bpm BP: 128 / 70 mmHg Social Media Specialist: SB Referring MD: Vitaliy Fields MD Warp Bleaching Vat Tender: Prudencio Alcantara MD Symptoms: I48.0 - Paroxysmal atrial fibrillation Study Quality: Adequate ECG Rhythm: Atrial flutter with rapid ventricular response Conclusions: - 1. Mildly reduced LV ejection fraction 45-50% 2. Mildly dilated left atrium 3. No significant abnormalities of cardiac valvular Dopplers 4. Normal RV systolic pressure with significantly elevated right atrial pressures 5. No gross pericardial effusion 6. Mildly dilated ascending aorta 3.7 cm Findings Left Ventricle Normal left ventricular cavity size. There is normal left ventricular wall thickness. The left ventricular systolic function is mildly decreased. The visually estimated ejection fraction is between 45-50%. Diastolic function is indeterminate on the basis of available data. Right Ventricle Normal right ventricular cavity size and systolic function. There is a pacemaker wire seen in the right ventricle. Atria The left atrium is mildly dilated. Interatrial shunt cannot be excluded. The right atrium is normal in size. Aortic Valve The aortic valve structure and function is likely normal. There is mild calcification of the aortic valve. There is no aortic valve stenosis. There is trace (trivial) aortic valve regurgitation. Mitral Valve There is mild anterior and posterior mitral leaflet thickening. There is mild mitral annular calcification. There is trace mitral valve regurgitation. There is no mitral valve stenosis. Pulmonic Valve The pulmonic valve was not well visualized. Tricuspid Valve Likely normal tricuspid valve structure and function. There is mild tricuspid valve regurgitation. Significantly elevated right atrial pressure. There is no evidence of pulmonary hypertension. Great Vessels The pulmonary artery was not well visualized. There is mild dilatation of the ascending aorta measuring 3.70 cm. Venous The inferior vena cava is moderately dilated and does not collapse with inspiration. Pericardium/Pleural There is no evidence of pericardial effusion. Prior Study Comparison Changes noted compared to prior study dated: 09/27/2022. LV systolic function is mildly reduced. Right atrial pressures are increased Measurements 2D Linear Measurements IVSd: 1.18 0.6-0.9/0.6-1.0 cm LVIDd: 5.42 3.9-5.3/4.2-5.9 cm LVIDd Index: 2.33 2.4-3.2/2.2-3.1 cm/m2 LVIDs: 4.28 2.0-3.6 cm LVPWd: 0.58 0.7-1.1 cm LA Diam: 3.30 2.7-3.8/3.0-4.0 cm LAIDs Index: 1.42 1.5-2.3 cm/m2 LV Mass: 219.85 67-162/88-224 g LV Mass Index: 94.35 43-95/49-115 g/m2 LVOT Diam: 2.20 3.0+(-)1.3 cm 2D Systolic Function EF 4C: 48.70 >55% EF 2C: 44.60 >55% EF BiP: 45.40 >55% Mitral Valve MV Pk E: 0.69 E'Lateral: 12.00 E'Medial: 8.76 E/E' Med: 7.90 E/E' Lat: 5.80 Aortic Valve AoV Pk [place]: 0.93 AoV Pk Grad: 3.00 NATE: 3.58 LVOT LVOT Pk [place]: 0.89 LVOT Mn [place]: 0.64 LVOT VTI: 0.16 LVOT Pk Grad: 3.00 LVOT Mn Grad: 2.00 LVOT Diam: 2.20 LVOT Area: 3.80 Diastolic Function MV Pk E: 0.69 E'Medial: 8.76 E/E' Med: 7.90 E' Laterial: 12.00 E/E' Lat: 5.80 Right Ventricle TAPSE (mm): 17.80 TVS' Ind[place]: 12.70 Tricuspid Valve TR Pk [place]: 2.26 TR Pk Grad: 20.00 RA Press: 15.00 RVSP: 35.00 Great Vessels Aorta Sinus of Valsalva: 3.40 2.0-3.5 cm Ao Asc: 3.70 2.1-3.4 cm Pulmonary Valve PV Pk Indio: 0.80 Peak PV Grad: 3.00 Updated in Other Vendor System with Status of Final Prudencio Alcantara MD electronically signed on 08/06/2024 11:34:59 AM with status of Final
== END ==
LOC: HO.CARD 13:40
PROVIDERS: PCP Internal Medicine; Visit Provider Internal Medicine
DX: I48.0 Paroxysmal atrial fibrillation (principal)
CPT/HCPCS: 93306

== ENCOUNTER → 2024-08-05 13:49 | Outpatient (BNV) | payer MEDICARE, SELFPAY | PROVIDERS: PCP Internal Medicine; Visit Provider Internal Medicine Cardiovascular Disease | DX: I36.1 Nonrheumatic tricuspid (valve) insufficiency (principal); I35.8 Other nonrheumatic aortic valve disorders; I34.81 Nonrheumatic mitral (valve) annulus calcification | CPT/HCPCS: 93306 ==

== ENCOUNTER 2024-08-12 12:54 | Day surgery (SDC) | payer MEDICARE, SELFPAY ==
--- NOTE | 2024-08-12 | ECG_ITS ---
Test Reason : s/p cardioversion Blood Pressure : / mmHG Vent. Rate : 085 BPM Atrial Rate : 085 BPM P-R Int : 242 ms QRS Dur : 086 ms QT Int : 386 ms P-R-T Axes : 074 017 029 degrees QTc Int : 459 ms Sinus rhythm with 1st degree A-V block Otherwise normal ECG When compared with ECG of 21-JAN-2019 12:31, ND interval has increased Referred By: Roly Constantino Electronically Signed By:Roly Constantino
[2024-08-12 13:24] VITALS: BMI 28.7
[2024-08-12] MEDS: Lactated Ringers 1,000 ML 50 ML IVCONT (13:32)
[2024-08-12 13:35] VITALS: BP 142/82; PULSE 116; RESP 18; TEMP 36.8; O2SAT 98
--- NOTE | 2024-08-12 14:00 | P.CONAN_ITS ---
Documented by User: Dania Davis NP 08/11/24 08:20 HPI - Anesthesia Eval Consult details Narrative: 63yo M for Cardioversion Eliquis Pacer in situ Anesthesia Pre-Procedure Meds Is the patient on any of the following meds?: SGLT2 Inhib PMFSH Active Problems Active Problems: All Active Problems Nausea (Acute) S/P gastric bypass (Acute) Pacemaker (Acute) Obstructive sleep apnea (Acute) Presence of Watchman left atrial appendage closure device (Acute) Paroxysmal atrial fibrillation (Acute) (HFpEF) heart failure with preserved ejection fraction (Acute) Overweight (Acute) Past Medical History Medical History Diabetes Obstructive sleep apnea Paroxysmal atrial fibrillation (HFpEF) heart failure with preserved ejection fraction Presence of Watchman left atrial appendage closure device Pacemaker Hx of cardiac pacemaker Family History Family History Father Emphysema lung Mother Heart failure Son Ulcerative colitis Brother No problems noted. Sister No problems noted. Sister No problems noted. Surgical History Surgical History History of amputation of toe Hx of hand surgery Hx of colonoscopy Hx of total knee replacement Hx of gastric bypass History of amputation of lesser toe Hx of colonoscopy Hx of prior ablation treatment Hx of foot surgery Social History Social History Are you a primary special needs child caregiver to a significant other at home: No Do you presently have visiting nurse or other home services: No Alcohol intake: current Alcohol intake frequency: a few times a week Patient Tobacco Use Status: Current everyday Tobacco user Tobacco use type: Cigarette Smoked in Last 30 Days: Yes Patient Interested in Nicotine Replacement: No Have you been hit, kicked, punched, or otherwise hurt by someone within the past year? If so, by whom?: No Are you DNR?: No Advance Directives: No Advance Directives Information Provided: Yes Recently lost weight without trying: No Nutrition Risks: No Nutritional Risk Meds Allergies Allergy/AdvReac Type Severity Reaction Status Date / Time lisinopril Allergy Mild kidney Verified 08/12/24 14:05 trouble Home Medications ?Medication ?Instructions ?Recorded ?Confirmed ?Last Taken ?Type glipizide 2.5 mg tablet, extended 2.5 mg PO .every other day 08/14/22 08/12/24 Unknown History release 24 hr pravastatin 20 mg tablet 20 mg PO DAILY 08/14/22 08/12/24 Unknown History pregabalin 150 mg capsule (Lyrica) 150 mg PO BID 08/14/22 08/12/24 Unknown History cholecalciferol (vitamin D3) 25 25 mcg PO DAILY 09/18/22 08/12/24 Unknown History mcg (1,000 unit) capsule omega 9-xwz-iux-fish oil 1,000 mg 1 cap PO DAILY 09/18/22 08/12/24 Unknown History (120 mg-180 mg) capsule (Fish Oil) donepezil 10 mg tablet 10 mg PO DAILY 10/21/22 08/12/24 Unknown History empagliflozin 25 mg tablet 25 mg PO DAILY 06/07/24 08/12/24 08/07/24 History (Jardiance) metformin 1,000 mg tablet 500 mg PO BID 06/07/24 08/12/24 Unknown History Exam Pertinent Lab Results Pertinent Lab Results: Laboratory Tests 07/21/24 16:16 WBC 7.8 Hgb 14.4 Hct 42.1 Plt Count 175 Sodium 141 Potassium 4.5 Chloride 102 Carbon Dioxide 29 BUN 47 H Creatinine 1.33 Narrative Narrative: ECHO 07/2024 Conclusions: - 1. Mildly reduced LV ejection fraction 45-50% 2. Mildly dilated left atrium 3. No significant abnormalities of cardiac valvular Dopplers 4. Normal RV systolic pressure with significantly elevated right atrial pressures 5. No gross pericardial effusion 6. Mildly dilated ascending aorta 3.7 cm Cardiac Device Check 05/2024 Details: Pacemaker interrogated today. Dual-chamber device, programmed AAIR-DDDR. Battery status 1.5 years. Normal lead parameters. Ongoing AT/AF episode, ongoing since 12/2023. Currently, around 120/Min 2-1 flutter. Assessment and Plan Assessment Anesthesia Assessment: Chart Reviewed Documented by User: Lucrecia Abbasi DO 08/12/24 14:10 HPI - Anesthesia Eval Anesthesia Pre-Procedure Meds Is the patient on any of the following meds?: SGLT2 Inhib PMFSH Past Medical History Medical History Diabetes Obstructive sleep apnea Paroxysmal atrial fibrillation (HFpEF) heart failure with preserved ejection fraction Presence of Watchman left atrial appendage closure device Pacemaker Hx of cardiac pacemaker Family History Family History Father Emphysema lung Mother Heart failure Son Ulcerative colitis Brother No problems noted. Sister No problems noted. Sister No problems noted. Family history of problems with anesthesia: No Surgical History Surgical History History of amputation of toe Hx of hand surgery Hx of colonoscopy Hx of total knee replacement Hx of gastric bypass History of amputation of lesser toe Hx of colonoscopy Hx of prior ablation treatment Hx of foot surgery History of Problems with Anesthesia: No Social History Social History Are you a primary special needs child caregiver to a significant other at home: No Do you presently have visiting nurse or other home services: No Alcohol intake: current Alcohol intake frequency: a few times a week Patient Tobacco Use Status: Current everyday Tobacco user Tobacco use type: Cigarette Smoked in Last 30 Days: Yes Patient Interested in Nicotine Replacement: No Have you been hit, kicked, punched, or otherwise hurt by someone within the past year? If so, by whom?: No Are you DNR?: No Advance Directives: No Advance Directives Information Provided: Yes Recently lost weight without trying: No Nutrition Risks: No Nutritional Risk Meds Allergies Allergy/AdvReac Type Severity Reaction Status Date / Time lisinopril Allergy Mild kidney Verified 08/12/24 14:05 trouble Home Medications ?Medication ?Instructions ?Recorded ?Confirmed ?Last Taken ?Type glipizide 2.5 mg tablet, extended 2.5 mg PO .every other day 08/14/22 08/12/24 Unknown History release 24 hr pravastatin 20 mg tablet 20 mg PO DAILY 08/14/22 08/12/24 Unknown History pregabalin 150 mg capsule (Lyrica) 150 mg PO BID 08/14/22 08/12/24 Unknown History cholecalciferol (vitamin D3) 25 25 mcg PO DAILY 09/18/22 08/12/24 Unknown History mcg (1,000 unit) capsule omega 6-gwd-lxi-fish oil 1,000 mg 1 cap PO DAILY 09/18/22 08/12/24 Unknown History (120 mg-180 mg) capsule (Fish Oil) donepezil 10 mg tablet 10 mg PO DAILY 10/21/22 08/12/24 Unknown History empagliflozin 25 mg tablet 25 mg PO DAILY 06/07/24 08/12/24 08/07/24 History (Jardiance) metformin 1,000 mg tablet 500 mg PO BID 06/07/24 08/12/24 Unknown History Exam Exam Date and Time: 08/12/24 1400 Height,Weight and Vital Signs: Height 6 ft 3 in Weight 104.326 kg Vital Signs Temperature 98.2 F 08/12/24 13:35 Pulse Rate 116 H 08/12/24 13:35 Respiratory Rate 18 08/12/24 13:35 Blood Pressure 142/82 H 08/12/24 13:35 Pulse Oximetry 98 08/12/24 13:35 Oxygen Delivery Method Room Air 08/12/24 13:35 Temperature 98.2 F 08/12/24 13:35 Pulse Rate 116 H 08/12/24 13:35 Respiratory Rate 18 08/12/24 13:35 Blood Pressure 142/82 H 08/12/24 13:35 Pulse Oximetry 98 08/12/24 13:35 Oxygen Delivery Method Room Air 08/12/24 13:35 Airway Mallampati Class: II TM Dist: >3cm Neck ROM: Full Loose/Missing/Broken Teeth: No (patient denies any loose or broken teeth) Heart: S1S2 Lungs: CTAB Assessment and Plan Assessment Anesthesia Assessment: Anesthesia Plan Discussed and Chart Reviewed Final Anesthetic Review Family History of Problems with Anesthesia: No History of Problems with Anesthesia: No NPO: Yes ASA Class: III Final Preanesthetic Review: No Changes in Pt Med Stat, Meds/Allgs Chart Reviewed, Consent Obtained/Reviewed and Anes Risks/Benef Reviewed Patient Risk: Intermediate Procedure Risk: Intermediate Anesthetic Plan Anesthetic Plan: MAC: and Agree w/ Assess. and Plan Disposition: Standard PACU
[2024-08-12] MEDS: Apixaban 5 MG TABLET PO (14:18)
[2024-08-12 14:23] LABS: Glucose, Whole Blood 170 mg/dL (60-115)
--- NOTE | 2024-08-12 14:24 | PC.NURSE ---
Dr. Constantino aware that patient is being treated for bilateral feet at wound care and that he started an antibiotic last Friday for a left foot infection. Dr. Constantino educated patient regarding infections/healing.
--- NOTE | 2024-08-12 14:36 | MHC.SHP ---
Pre-Procedural Eval Section A - 24 Hr Update-Section A only Date of Service: 08/12/24 The patient is an INPATIENT: No Section B - Complete if H&P > 30 days Chief Complaint: Atrial flutter Allergies: Allergies Allergy/AdvReac Type Severity Reaction Status Date / Time lisinopril Allergy Mild kidney Verified 08/12/24 14:05 trouble Plan Diagnosis/Plan: Unchanged I have reviewed the history and physical and performed a pertinent physical examination on my patient. No changes have occurred unless specified. Time Spent With Patient Time: Total time managing care of this patient today ____ minutes.
--- NOTE | 2024-08-12 14:36 | HO.CARDIVERS ---
Cardioversion Procedure Note Cardioversion Date of Procedure: 08/12/24 Ordering Provider: Carlos Fields MD Performing Provider: Roly Constantino Indication for Procedure: Atrial flutter Performed with Transesophageal Echo: No History: [age] year gentleman with symptomatic atrial flutter here for cardioversion. Consent: Verbal and Written consent was obtained from the patient before starting. The patient was made aware of the risk of failure, arrhythmia and stroke. Procedure: After consent obtained, defib pads were attached and the patient was sedated by the anesthesia team. Once adequate sedation achieved, single synchronized shock of 150 joules was given. Patient converted to sinus rhythm. Complications: None Recommendations: Continue Eliquis 5 mg twice a day. Adding amiodarone 400 mg twice a day for 10 days, then dose will be decreased to 200 mg daily. Follow-up with Dr. Fields.
[2024-08-12 14:43] VITALS: BP 122/69; PULSE 86; RESP 17; TEMP 36.8; O2SAT 98
[2024-08-12 14:48] VITALS: BP 122/69; PULSE 89; RESP 16; O2SAT 98
[2024-08-12 14:53] VITALS: BP 122/69; PULSE 86; RESP 19; O2SAT 99
[2024-08-12 14:58] VITALS: BP 121/70; PULSE 92; RESP 15; O2SAT 98
[2024-08-12 15:14] VITALS: BP 121/70; PULSE 89; RESP 17; TEMP 36.7; O2SAT 99
== END 2024-08-12 15:48 | disposition home or self-care (01) ==
PROVIDERS: PCP Internal Medicine; Visit Provider Internal Medicine Cardiovascular Disease
PROC: 5A2204Z Restoration of Cardiac Rhythm, Single (ICD-10-PCS; principal; 2024-08-12 14:00)
DX: I48.92 Unspecified atrial flutter (principal); I48.0 Paroxysmal atrial fibrillation; I50.30 Unspecified diastolic (congestive) heart failure; Z95.818 Presence of other cardiac implants and grafts; Z95.0 Presence of cardiac pacemaker; G47.33 Obstructive sleep apnea (adult) (pediatric); E11.9 Type 2 diabetes mellitus without complications; Z79.01 Long term (current) use of anticoagulants; Z79.82 Long term (current) use of aspirin; Z79.84 Long term (current) use of oral hypoglycemic drugs; Z79.899 Other long term (current) drug therapy; F17.290 Nicotine dependence, other tobacco product, uncomplicated
CPT/HCPCS: 82947; 92960; 93005; J2704

== ENCOUNTER → 2024-08-12 12:54 | Outpatient (BNV) | payer MEDICARE, SELFPAY | PROVIDERS: PCP Internal Medicine; Visit Provider Internal Medicine Cardiovascular Disease | DX: I48.92 Unspecified atrial flutter (principal) | CPT/HCPCS: 92960; 93010 ==

== ENCOUNTER 2024-09-06 13:43 | Outpatient (REF) | payer MEDICARE, SELFPAY ==
[2024-09-06 13:45] LABS: MANUAL DIFF FLAG NO
[2024-09-06 13:48] LABS: Basophils Absolute Auto 0.1 X10*3/uL (0.0-0.2); Basophils Percent Auto 0.8 % (0-2); Eosinophils Absolute Auto 0.2 X10*3/uL (0.0-0.4); Eosinophils Percent Auto 1.5 % (0-4); Hematocrit 30.8 % (42.0-52.0); Hemoglobin 10.2 g/dl (14.0-18.0); Imm Gran Abs Auto 0.09 X10*3/uL (0.00-0.03); Imm Gran Pct Auto 0.9 % (0.0-0.4); Lymphocytes Percent Auto 10.2 % (20-40); Mean Corpuscular HGB Conc 33.1 g/dl (31.0-36.0); Mean Corpuscular Hemoglobin 32.9 pg (27.0-33.0); Mean Corpuscular Volume 99.4 fL (80.0-98.0); Mean Platelet Volume 11.1 fL (9.4-12.4); Monocytes Absolute Auto 0.6 X10*3/uL (0.1-1.2); Monocytes Percent Auto 6.2 % (2-11); Neutrophils Percent Auto 80.4 % (45-73); Platelet Count 269 X10*3/uL (160-400); Red Cell Distribution Width 13.4 % (11.0-16.0)
[2024-09-06 14:10] LABS: Anion Gap 14 (12-20); Blood Urea Nitrogen 35 mg/dL (9-16); Calcium 8.6 mg/dL (8.4-10.2); Carbon Dioxide 22 mmol/L (22-29); Chloride 110 mmol/L (96-108); Estimated Glomerular Filt Rate 48; Glucose Random 211 mg/dL (60-115); Potassium 4.2 mmol/L (3.3-5.1); Sodium 142 mmol/L (135-145)
--- OUTSIDE RECORDS SUMMARY | 2024-09-08 15:51 | XMS_ITS ---
Author Name [facility] Organization Unknown Results Test Name/Text Value Interpretation Date Range Source Result Normal - [facility] Est. average glucose Bld gHb Est-mCnc 203mg/dL Normal [id number] H[facility] Hgb A1c MFr Bld 8.7% Above high normal [id number] - 5 .7 [facility] Prealb SerPl-mCnc 25mg/dL Normal [id number] 20 - 40 H[facility]CT Transferrin SerPl-mCnc 230mg/dL Normal [id number] 200 - 360 H[facility] Problems Problem Status Onset Date Problem Type Date of Resolution Source Pain in left ankle and joints of left foot active EncounterDiagnosisAct [facility]CT Acute osteomyelitis of right ankle or foot (HCC) active EncounterDiagnosisAct [facility]CT
== END 2024-09-06 13:44 | disposition home or self-care (01) ==
LOC: HO.HVNA 13:43
PROVIDERS: Visit Provider Internal Medicine Infectious Disease
DX: I48.0 Paroxysmal atrial fibrillation (principal); M86.172 Other acute osteomyelitis, left ankle and foot; Z79.2 Long term (current) use of antibiotics
CPT/HCPCS: 36415; 80048; 85025

== ENCOUNTER 2024-10-05 14:11 | Outpatient (AMB) | payer MEDICARE, SELFPAY ==
[2024-10-05 14:23] VITALS: BP 130/56; PULSE 67
--- NOTE | 2024-10-05 14:23 | MHC.OFFVIS ---
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: No Accompanied by: Self / Same As Patient Allergies lisinopril Allergy (Mild, Verified 08/12/24 14:05) kidney trouble Medication List - Last Reconciled 10/05/24 by Vitaliy Fields MD amiodarone 200 mg PO BID bumetanide 2 mg PO DAILY 90 days cholecalciferol (vitamin D3) 25 mcg PO DAILY donepezil 10 mg PO DAILY empagliflozin (Jardiance) 25 mg PO DAILY glipizide ER 2.5 mg PO BID metformin 500 mg PO ONCE metoprolol tartrate 50 mg PO BID 30 days omega 6-okw-ops-fish oil 1,000 (120-180) mg (Fish Oil) 1 cap PO DAILY pantoprazole 40 mg PO DAILY pravastatin 20 mg PO DAILY pregabalin (Lyrica) 150 mg PO BID zinc gluconate 10 mg PO DAILY HPI Comments Details: Luca returns for follow-up. To recall, he has seen several cardiologists and most recently was following at [facility] till around 2021. However, because of the distance involved, he wanted to have local Cardiology and hence started seeing us. He also saw [facility] prior to that. Any case, he has a history of longstanding atrial fibrillation and has undergone several cardioversions and ablations. In addition, history of gastrointestinal bleeding and hence has had Watchman device. History of bariatric surgery with weight loss. Chronic heart failure on long-term diuretics. During the recent clinic visit, he was in atrial flutter with rapid rate. He was like this for several months. However, as there was no remote monitoring, we were not aware of this. Nonspecific symptoms but nothing profound. Any case, he again saw EP at [facility] and was supposedly going for an ablation but nothing done yet. In the interim, he underwent a cardioversion. He is back to normal rhythm. He states he feels fine. [facility] Medical History Diabetes Obstructive sleep apnea Paroxysmal atrial fibrillation (HFpEF) heart failure with preserved ejection fraction Presence of Watchman left atrial appendage closure device Pacemaker Hx of cardiac pacemaker Surgical History History of amputation of toe Hx of hand surgery Hx of colonoscopy Hx of total knee replacement Hx of gastric bypass History of amputation of lesser toe Hx of colonoscopy Hx of prior ablation treatment Hx of foot surgery Family History Father Emphysema lung Mother Heart failure Son Ulcerative colitis Brother No problems noted. Sister No problems noted. Sister No problems noted. Social History (Updated 10/05/24 @ 14:32 by Mary Ellen Venegas CMA) Are you a primary zoo caretaker to a significant other at home: No Do you presently have visiting nurse or other home services: No Alcohol intake: current Alcohol intake frequency: a few times a week Patient Tobacco Use Status: Former Tobacco user Tobacco use type: Cigarette Review of Systems Const Denies chills, Denies fatigue, Denies fever(s), Denies weight gain and Denies weight loss ENT Denies dizziness Card Denies chest pain, Denies leg edema, Denies lightheadedness, Denies palpitations, Denies dyspnea on exertion, Denies orthopnea and Denies other Resp Denies cough and Denies dyspnea on exertion GI Denies hematochezia and Denies change in stool character Musc Denies abnormal gait, Denies muscle weakness, Denies numbness, Denies radiating pain into limb and Denies tingling Neuro Denies abnormal gait, Denies dizziness, Denies numbness and Denies tingling Endo Denies fatigue and Denies palpitations Physical Exam Vital Signs: Last Vital Signs Pulse 67 10/05/24 14:23 BP 130/56 L 10/05/24 14:23 Const General: comfortable and no acute distress Orientation/consciousness: patient oriented x3 HEENT Other: Unremarkable Head: Yes normal to inspection Neck Neck: Yes normal visual inspection Chest Chest palpation & inspection: normal inspection of the chest Resp Auscultation: clear to auscultation bilaterally Cardio Palpation: normal PMI Heart sounds: S1 normal heart sound present, S2 normal heart sound present, no gallops, no murmurs and no rubs GI Palpation (GI): Soft to palpation Back/Spine/Pelvis Other: unremarkable Skin General skin exam: no rashes or lesions noted Neuro General: patient oriented x3 Extrem General: Yes normal to inspection Psych Mental Status: mental status grossly normal Office Procedures EKG Details: EKG with atrial sensed, ventricular paced rhythm at 67/Min. 66741-[id number], Complete Assessment & Plan Assessment & Plan (1) Paroxysmal atrial fibrillation: Code(s): I48.0 - Paroxysmal atrial fibrillation Category: Medical Plan: History of prior cardioversions and ablations. Most recently, again in atrial flutter with rapid rate and underwent cardioversion on 08/12. Has seen EP at [facility] and pending ablation. For the time being, continue Amiodarone- dose should be 200mg once/day. Continue short-term anticoagulation. Last perfusion imaging is from 2016 and that showed no ischemic findings. Last echocardiogram is from 07/2024-LVEF 45-50%. Prior to that, 60-65% in 2021. Drop in LVEF could be tachycardia mediated. Should have normalized now that he is back to normal sinus rhythm. (2) (HFpEF) heart failure with preserved ejection fraction: Code(s): I50.30 - Unspecified diastolic (congestive) heart failure Category: Medical Plan: Stable. No changes. (3) Presence of Watchman left atrial appendage closure device: Code(s): Z95.818 - Presence of other cardiac implants and grafts Category: Medical Plan: Advised him to stay on Eliquis till he contact EP and gets the ablation sorted. (4) Pacemaker: Code(s): Z95.0 - Presence of cardiac pacemaker Category: Medical Plan: Unfortunately, still does not have remote monitoring set up as he states he just does not work and keeps giving error messages. He will need to contact the support line. We again discussed that today. (5) Obstructive sleep apnea: Code(s): G47.33 - Obstructive sleep apnea (adult) (pediatric) Category: Medical Plan: On BiPAP. Orders: Orders TSH reflex Free T4 Today Vitaliy Fields MD I48.0 - Paroxysmal atrial fibrillation, R94.6 - Abnormal results of thyroid function studies Medications: Changed From amiodarone (2 x 200 mg) 400 mg orally BID for 10 days, then decrease the dose to 200 mg daily.; 100 tabs 0RF To amiodarone 200 mg PO BID Roly Constantino MD Coding Level of Care Code Est Pt Level 4 (66749) Diagnoses Paroxysmal atrial fibrillation I48.0 (HFpEF) heart failure with preserved ejection fraction I50.30 Presence of Watchman left atrial appendage closure device Z95.818 Pacemaker Z95.0 Obstructive sleep apnea G47.33 CPT Codes EKG - CPT: 57618-[id number], Complete ([id number])
== END 2024-10-05 14:58 | disposition home or self-care (01) ==
PROVIDERS: PCP Internal Medicine; Visit Provider Internal Medicine
DX: I48.0 Paroxysmal atrial fibrillation (principal); I50.30 Unspecified diastolic (congestive) heart failure; Z95.818 Presence of other cardiac implants and grafts; Z95.0 Presence of cardiac pacemaker; G47.33 Obstructive sleep apnea (adult) (pediatric)
CPT/HCPCS: 93010; 99214

== ENCOUNTER → 2024-10-05 14:11 | Outpatient (BNVA) | payer MEDICARE, SELFPAY | PROVIDERS: PCP Internal Medicine; Visit Provider Internal Medicine | DX: I48.0 Paroxysmal atrial fibrillation (principal); I44.0 Atrioventricular block, first degree; I50.30 Unspecified diastolic (congestive) heart failure; G47.33 Obstructive sleep apnea (adult) (pediatric); R94.31 Abnormal electrocardiogram [ECG] [EKG]; Z95.818 Presence of other cardiac implants and grafts; Z95.0 Presence of cardiac pacemaker | CPT/HCPCS: 93005; 99212 ==

== ENCOUNTER 2024-12-02 09:24 | Outpatient (AMB) | payer MEDICARE, SELFPAY ==
[2024-12-02 09:34] VITALS: BP 132/62; PULSE 60; BMI 40.7
--- NOTE | 2024-12-02 09:34 | A.OFFVIS_ITS ---
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 Accompanied by: Self / Same As Patient Allergies lisinopril Allergy (Mild, Verified 08/12/24 14:05) kidney trouble Medication List - Last Reconciled 12/02/24 by Vitaliy Fields MD amiodarone 200 mg PO DAILY bumetanide 2 mg PO DAILY 90 days cholecalciferol (vitamin D3) 25 mcg PO DAILY donepezil 10 mg PO DAILY empagliflozin (Jardiance) 25 mg PO DAILY glipizide ER 2.5 mg PO BID metformin 500 mg PO ONCE metoprolol tartrate 50 mg PO BID 30 days omega 0-sue-rwu-fish oil 1,000 (120-180) mg (Fish Oil) 1 cap PO DAILY pantoprazole 40 mg PO DAILY pravastatin 20 mg PO DAILY pregabalin (Lyrica) 150 mg PO BID zinc gluconate 10 mg PO DAILY HPI Comments Details: Luca returns for follow-up. Long and complicated history. History of atrial fibrillation and he has had prior cardioversions and ablations numerous times. He also has a history of gastrointestinal bleeding and underwent Watchman device. History of bariatric surgery in weight loss. Chronic heart failure on diuretics. In the clinic visit from 2023, he was in atrial flutter with rapid rate. As there was no remote monitoring, this was going on at least for few months before detected during clinic visit. Then had therapeutic anticoagulation followed by cardioversion. 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 After that, he underwent left below-knee amputation. In this context, had bacteremia with MRSA/VRE. There was question of mitral valve/pacemaker lead endocarditis. Put on antibiotics. Then had heart failure exacerbation. Then was put on Bumex drip. TATIANNA had shown concern for mobile echodensity in the mitral valve annulus and adjacent to Watchman device. Following this, dual-chamber pacemaker extracted and he had micro implanted. Eventually, discharged home. He states he is actually feeling much better. Still getting antibiotics. Has follow-up at [facility] cardiology coming up. [facility] Medical History Diabetes Obstructive sleep apnea Paroxysmal atrial fibrillation (HFpEF) heart failure with preserved ejection fraction Presence of Watchman left atrial appendage closure device Pacemaker Hx of cardiac pacemaker Surgical History History of amputation of toe Hx of hand surgery Hx of colonoscopy Hx of total knee replacement Hx of gastric bypass History of amputation of lesser toe Hx of colonoscopy Hx of prior ablation treatment Hx of foot surgery Family History Father Emphysema lung Mother Heart failure Son Ulcerative colitis Brother No problems noted. Sister No problems noted. Sister No problems noted. Social History Are you a primary gericare aide to a significant other at home: No Do you presently have visiting nurse or other home services: No Alcohol intake: current Alcohol intake frequency: a few times a week Patient Tobacco Use Status: Former Tobacco user Tobacco use type: Cigarette Review of Systems Const All systems reviewed & are unremarkable except as noted in HPI and below Reports as per HPI and Reports no additional complaints Eyes Reports as per HPI and Denies no additional complaints ENT Denies no additional complaints and Reports as per HPI Card Reports as per HPI, Reports no additional complaints, Denies acrocyanosis, Denies chest pain, Denies leg edema, Denies lightheadedness, Denies palpitations and Denies dyspnea Resp Reports as per HPI, Denies no additional complaints and Denies dyspnea GI Reports as per HPI and Denies no additional complaints Reports no additional complaints and Reports as per HPI Musc Reports no additional complaints and Reports as per HPI Skin/Breast Reports system reviewed and no additional complaints, except as documented Neuro Reports no additional complaints and Reports as per HPI Psych Reports no additional complaints and Reports as per HPI Endo Reports no additional complaints, Reports as per HPI and Denies palpitations Iron/Lymph Reports no additional complaints and Reports as per HPI Aller/Immun Reports no additional complaints and Reports as per HPI Physical Exam Vital Signs: Last Vital Signs Pulse 60 12/02/24 09:34 BP 132/62 12/02/24 09:34 BMI result Body Mass Index 40.7 Const General: comfortable and no acute distress Orientation/consciousness: patient oriented x3 HEENT Other: Unremarkable Head: Yes normal to inspection Neck Neck: Yes normal visual inspection Chest Chest palpation & inspection: normal inspection of the chest Resp Auscultation: clear to auscultation bilaterally Cardio Palpation: normal PMI Heart sounds: S1 normal heart sound present, S2 normal heart sound present, no gallops, no murmurs and no rubs GI Palpation (GI): Soft to palpation Back/Spine/Pelvis Other: unremarkable Skin General skin exam: no rashes or lesions noted Neuro General: patient oriented x3 Extrem Other: L BKA Psych Mental Status: mental status grossly normal Office Procedures EKG Details: EKG with ventricular paced rhythm at 60/Min. [id number], Complete Assessment & Plan Assessment & Plan (1) Paroxysmal atrial fibrillation: Code(s): I48.0 - Paroxysmal atrial fibrillation Category: Medical Plan: History of prior cardioversions and ablations. Most recently, again in atrial flutter with rapid rate and underwent cardioversion 07/2024 Has seen EP at [facility] and pending ablation. For the time being, continue Amiodarone. TSH slightly elevated; T3 slightly reduced and normal free T4. No longer on anticoagulation. (2) (HFpEF) heart failure with preserved ejection fraction: Code(s): I50.30 - Unspecified diastolic (congestive) heart failure Category: Medical Plan: Stable. No changes. (3) Presence of Watchman left atrial appendage closure device: Code(s): Z95.818 - Presence of other cardiac implants and grafts Category: Medical Plan: Question of endocarditis involving Watchman. He has follow-up coming up with [facility] TAMAYO. (4) Obstructive sleep apnea: Code(s): G47.33 - Obstructive sleep apnea (adult) (pediatric) Category: Medical Plan: On BiPAP. Coding Level of Care Code Est Pt Level 4 (07948) Complex EM visit Add On G2211 Diagnoses Paroxysmal atrial fibrillation I48.0 (HFpEF) heart failure with preserved ejection fraction I50.30 Presence of Watchman left atrial appendage closure device Z95.818 Obstructive sleep apnea G47.33 CPT Codes EKG - CPT: 01891-[id number], Complete ([id number])
--- OUTSIDE RECORDS SUMMARY | 2024-12-02 10:34 | XMS_ITS | Encounter Summary ---
Author Organization [facility] [address] Address [address] [place] [address] Care Team Providers Care Supply Requirements Officer Name Role Phone Lee Fabian MD Primary Care Provider [phone] Reason for Visit * Reason Onset Date Comments vna 10/04/2024 Encounter Details Date Type Department Care Team (Late st Contact Info) Description 10/04/2024 Telephone Internal Medicine - [facility] [address] [place] [phone] Lee Fabian MD [address] [place] [id number] vna Social History Tobacco Use Types Packs/Day Years Used Date Smoking Tobacco: Every Day Cigarettes 1 1.3 Started: 08/06/2023; Last attempted to quit: 10/30/2003 Smokeless Tobacco: Never Alcohol Use Standard Drinks/Week Comments Yes 12 (1 standard drink = 0.6 oz pu re alcohol) Interpersonal Safety Answer Date Record ed Physical Abuse 08/17/2024 Verbal Abuse 08/17/2024 Sex and Gender Information Value Date Recorded Sex Assigned at Male 10/16/2022 10:12 AM EST Legal Sex Male 2:24 PM EST Gender Identity Male 10/16/2022 10:12 AM EST Sexual Orientation Straight 10/16/2022 10 :12 AM EST documented as of this encounter Functional Status * Are you deaf or do you have serious difficulty hearing? Answer Date of Assessment Author No 09/19/2024 11:54 PM EST Erik Abbott RN * Are you blind or do you have serious difficulty seeing, even when wearing glasses? Answer Date of Assessment Author No 09/19/2024 11:54 PM Erik Rendon RN * Do you have serious difficulty walking or climbing stairs? Answer Date of Assessment Author Yes 09/19/2024 11:54 PM Erik Rendon RN * Do you have serious difficulty dressing or bathing? Answer Date of Assessment Author No 09/19/2024 11:54 PM Erik Rendon RN * Because of a physical, mental, or emotional condition, do you have serious difficulty doing errandsalone such as visiting the doctor? Answer Date of Assessment Author No 09/19/2024 11:54 PM Erik Rendon RN documented as of this encounter Mental Status * Because of a physical, mental, or emotional condition, do you have serious difficulty concentrating, remembering, or making decisions? (5 years old or older) Answer Entry Date Author No 09/19/2024 11:54 PM Erik Rendon RN documented in this encounter Progress Notes * Isabela Flood MA - 10/04/2024 2:49 PM EST Fyi to pcp from A nurse. * Anna Issa - 10/04/2024 2:29 PM EST [facility]NA CALL Which A [facility] is calling[facility] / Full name of caller: rupesh The caller is A nurse Is the caller at the patients home?: no Reason for call: rupesh wanted to notify pcp that the pt had a fall today at his home. She filed a fall report. She does not need a call back Does caller need an urgent call back? no Was CONTACT Telephone # obtained above?: no Fax #: documented in this encounter Plan of Treatment Upcoming Encounters Date Type Department Care Team (Late st Contact Info) Description 12/06/2024 10:30 AM EDT Office Visit Internal Medicine - [facility] [address] [place], [place] [phone] Lee Fabian MD [address] [place] [phone] documented as of this encounter Goals Goal Patient Goal Type Associated Problems Recent Progress Patient-Stated? Author Decrease Wound Volume by X% by date (in notes) Care Plan Impaired Tissue On track( 11:43 AM EST) Susan Allison RN Patient and Caregiver Understand Wound Care Education Care Plan Impaired Tissue On track( 11:44 AM EST) Susan Allison RN Wound volume breakdown reduced by X% by week 4 Care Plan Impaired Tissue Susan Allison RN Wound volume breakdown reduced by X% by week 8 Care Plan Impaired Tissue Susan Allison RN Wound volume breakdown reduced by X% by week 12 Care Plan Impaired Tissue Susan Allison RN Quit using tobacco (cigarettes, smokeless, etc) Care Plan Education needed on impact of smoking on wound Susan Allison RN Reduce tobacco use (cigarettes, smokeless, etc) Care Plan Education needed on impact of smoking on wound Susan Allison RN Decrease Wound Volume by X% by date (in notes) Care Plan Education needed on impact of smoking on wound Susan Allison RN Patient and Caregiver Understand Wound Care Education Care Plan Education needed related to ulceration/compr omised skin integrity. No Susan Peralta RN documented as of this encounter Visit Diagnoses Not on filedocumented in this encounter Additional Health Concerns Active Problems Noted Date Diagnosed Date Impaired Tissue 08/10/2024 Education needed on impact of smoking on wound 1 10/10/2023 Education needed related to ulceration/compromised skin integrity. 08/10/2024 Infection Onset Date Last Indicated Resolved Time ESBL 08/03/2024 08/22/2024 MRSA 10/27/2024 10/27/2024 VRE 10/27/2024 10/27/2024 documented as of this encounter Care Teams Supply Requirements Officer Relationship Specialty Start Date End Date Lee Fabian MD [address] [place] [address] PCP - General Internal Medicine 08/03/24 documented as of this encounter
--- OUTSIDE RECORDS SUMMARY | 2024-12-02 10:34 | XMS_ITS | Clinical Summary ---
Author Organization [facility] [place] [facility] [place] [address] Phone Care Team Providers Care Marinator Name Role Phone Lee Fabian MD Primary Care Provider [phone] Allergies Active Allergy Reactions Criticality Noted Date Comments Lisinopril Hyperkalemia,Dehydra tion, Hives,Other,GI intolerance 09/12/2017 hyperkalemia Other reaction(s): Other (See Comments) hyperkalemia hyperkalemia Other Reaction(s): KIDNEY DAMAGE Medications acetaminophen (TYLENOL) 325 mg tablet Take 2 tablets (650 mg total) by mouth every 6 hours as needed. 8 Active FreeStyle Wallace 3 Sensor device 1 EA. 4 Active bumetanide (BUMEX) 2 mg tablet Take 1 tablet (2 mg total) by mouth 1 (one) time each day. Active Jardiance 25 mg tablet Take 1 tablet (25 mg total) by mouth 1 (one) time each day. 4 Active glipiZIDE 2.5 mg tablet Take 1 tablet by mouth 2 (two) times a day. 4 Active magnesium aspart,citrate, oxide (Triple Magnesium Complex) 400 mg magnesium capsule Take 1 capsule by mouth 1 (one) time each day. Active nicotine (NICODERM CQ) 7 mg/[address] 1 patch on the skin 1 (one) time each day at the same time. 4 Active pravastatin (PRAVACHOL) 20 mg tablet Take 1 tablet (20 mg total) by mouth 1 (one) time each day. Active donepeziL (ARICEPT) 10 mg tablet Take 1 tablet (10 mg total) by mouth 1 (one) time each day. 4 Active pantoprazole (PROTONIX) 40 mg EC tablet Take 1 tablet (40 mg total) by mouth 1 (one) time each day. Active pregabalin (LYRICA) 150 mg capsule Take 1 capsule (150 mg total) by mouth 2 (two) times a day. Active metoprolol tartrate (LOPRESSOR) 50 mg tablet Take 1 tablet (50 mg total) by mouth 2 (two) times a day. Active metFORMIN (FORTAMET) 500 mg 24 hr tablet Take 1 tablet (500 mg total) by mouth 1 (one) time each day with dinner. Do not crush, chew, or split. Active aspirin 81 mg EC tablet Take 1 tablet (81 mg total) by mouth 1 (one) time each day. 30 each 11 4 09/01/20 25 Active amiodarone (PACERONE) 200 mg tablet Take 1 tablet (200 mg total) by mouth 2 (two) times a day. 180 each 3 4 08/31/20 25 Active Additional Information Patient taking differently:200 mg oralDaily, Reported on 10/11/2024 oxyCODONE (ROXICODONE) 5 mg immediate release tablet Take 1 tablet (5 mg total) by mouth every 6 (six) hours if needed for moderate pain. 4 Active buPROPion SR (WELLBUTRIN SR) 150 mg 12 hr tablet Take 1 tablet (150 mg total) by mouth 2 (two) times a day. Do not crush, chew, or split. 60 each 1 5 12/29/19 25 Active doxycycline (MONODOX) 100 mg capsule Take 1 capsule (100 mg total) by mouth 2 (two) times a day for 14 days. Take with at least 8 ounces (large glass) of water, do not lie down for 30 minutes after 28 each 5 11/12/19 25 cefpodoxime (VANTIN) 200 mg tablet Take 1 tablet (200 mg total) by mouth 2 (two) times a day for 14 days. 28 each 01/3111/12/19 Active Problems Problem Noted Date Diagnosed Date Non-pressure chronic ulcer o f other part of left foot with fat layer exposed 10/27/2024 ISTAP type 3 skin tear of left forearm Non-pressure chronic ulcer l eft lower leg, limited to breakdown skin 10/12/2024 Type 2 diabetes mellitus with foot ulcer (CODE) 10/06/2024 Surgical wound, non healing 10/06/2024 Abrasion of anterior left lower leg 10/06/2024 Non-pressure chronic ulcer o f other part of left foot limited to breakdown of skin 10/06/2024 Non-pressure chronic ulcer o f other part of left foot with unspecified severity 10/06/2024 Non-pressure chronic ulcer o f left heel and midfoot with bone involvement without evidence of necrosis 10/06/2024 S/P debridement 08/31/2024 Diabetic infection of left foot 08/31/2024 Foot infection 08/17/2024 Diabetic ulcer of left heel associated with type 2 diabetes mellitus, with fat layer exposed 08/17/2024 Diabetic ulcer of left heel associated with type 1 diabetes mellitus, with fat layer exposed 08/03/2024 Type 2 diabetes mellitus with foot ulcer Non-pressure chronic ulcer o f other part of right foot with fat layer exposed 08/02/2024 Charcot's joint, right ankle and foot 08/02/2024 Corns and callosities 08/02/2024 Essential (primary) hypertension 08/02/2024 Peripheral vascular disease, unspecified 024 Type 2 diabetes mellitus wit h diabetic peripheral angiopathy without gangrene 08/02/2024 Complete atrioventricular block 05/30/2024 Chronic diastolic heart failure 04/28/2024 Atypical atrial flutter 10/19/2015 Encounters Date Type Department Care Team Description 2024 Telephone Internal Medicine - [facility] [address] [place] [phone] Lee Fabian MD Faxed Order (Driss BLACKMAN ) 2024 Telephone Internal Medicine - [facility] [address] [place] [phone] Lee Fabian MD Hospital Follow-up 11/26/2024 Telephone Internal Medicine - [address] [phone] Lee Fabian MD Faxed Order (Victoria VNA ) 11/19/2024 Telephone Infectious Disease [facility] [address] [place] [phone] Marlin Keene RN 11/12/2024 Telephone Internal Medicine - [address] [phone] Lee Fabian MD Request For Order(s) (Victoria VNA ) 11/11/2024 Billing Patient Not Present Internal Medicine - [address] [phone] Lee Fabian MD Encounter for change or removal of surgical wound dressing (Primary Dx); Encounter for surgical aftercare following surgery on the skin and subcutaneous tissue; Type 2 diabetes mellitus with other specified complication, unspecified whether parachute rigger insulin use ([facility]); Other acute osteomyelitis, left ankle and foot ([facility]); Type 2 diabetes mellitus with diabetic peripheral angiopathy with gangrene, unspecified whether correction insulin use ([facility]); 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 ([facility]); Other specified bacterial agents as the cause of diseases classified elsewhere; Type 2 diabetes mellitus with foot ulcer, unspecified whether parachute rigger insulin use ([facility]); Non-pressure chronic ulcer of right heel and midfoot with fat layer exposed (CMS/[facility]); Type 2 diabetes mellitus with diabetic neuropathic arthropathy, unspecified whether correction insulin use ([facility]/HCC) 11/05/2024 [facility] [address] [place] [address] Lee Fabian MD Faxed Order ([facility] (Cert/POC 10/31-12/29)) 11/05/2024 [facility] [address] [place] [address] Lee Fabian MD Faxed Order (Driss BLACKMAN (Transfer Summary)) 11/04/2024 [facility] [address] [place] [phone] Lee Fabian MD Faxed Order 10/29/2024 3:15 PM EST [facility] [phone] Lee Fabian MD Type 2 diabetes mellitus with foot ulcer, unspecified whether correction insulin use (CMS/HCC) (Primary Dx); Nicotine abuse; Iron deficiency anemia due to chronic blood loss 10/27/2024 11:00 AM EST Office Visit [facility] [address] [place] [phone] Roberto Murguia PA Type 2 diabetes mellitus with foot ulcer (CODE) (CMS/HCC) (Primary Dx); ISTAP type 3 skin tear of left forearm; Non-healing surgical wound, subsequent encounter; Non-pressure chronic ulcer of other part of right foot with fat layer exposed (CMS/HCC); 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 (CMS/HCC); Non-pressure chronic ulcer of other part of left foot with fat layer exposed (CMS/HCC); Type 2 diabetes mellitus with diabetic peripheral angiopathy without gangrene, without long-term current use of insulin (CMS/HCC); Peripheral vascular disease, unspecified (CMS/HCC); Essential (primary) hypertension 10/20/2024 11:00 AM EST Office Visit [facility] [address] [place] [phone] Roberto Murguia PA Type 2 diabetes mellitus with foot ulcer (CODE) (CMS/HCC) (Primary Dx); ISTAP type 3 skin tear of left forearm; Non-healing surgical wound, subsequent encounter; Abrasion of anterior left lower leg, subsequent encounter; Non-pressure chronic ulcer of other part of right foot with fat layer exposed (CMS/HCC); Non-pressure chronic ulcer of other part of left foot with unspecified severity (CMS/HCC); 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 ([facility]); Non-pressure chronic ulcer left lower leg, limited to breakdown skin ([facility]); Charcot's joint, right ankle and foot; Type 2 diabetes mellitus with diabetic peripheral angiopathy without gangrene, without long-term current use of insulin ([facility]); Peripheral vascular disease, unspecified ([facility]) 10/18/2024 Telephone [facility] [address] [place] [phone] Beverly Hyatt LPN Clearance for Hyperbaric treatment 10/18/2024 [facility] [address] [place] [phone] Beverly Hyatt LPN Vascular status call back 10/18/2024 [facility] [address] [place] [phone] Beverly Hyatt LPN Bilateral vascular status for hyperbaric treatment 10/18/2024 [facility] [address] [place] [phone] Beverly Hyatt LPN 10/18/2024 Telephone Vascular Surgery [facility] [address] [facility] [address] [place] [phone] Toni Rae MD provider call back 10/15/2024 9:40 AM EST Consult Gastroenterology [facility] [address] [facility] [address] [facility] [address] [place] [phone] Vishal Oconnell PA Elevated liver enzymes (Primary Dx); Non-healing non-surgical wound; Diabetes 1.5, managed as type 2 ([facility]); Atrial fibrillation, unspecified type ([facility]) 10/13/2024 11:00 AM EST Office Visit [facility] [address] [place] [phone] Roberto Murguia PA Type 2 diabetes mellitus with foot ulcer (CODE) ([facility]) (Primary Dx); Abrasion of anterior left lower leg, subsequent encounter; Non-healing surgical wound, subsequent encounter; Non-pressure chronic ulcer of other part of right foot with fat layer exposed ([facility]/HCC); Non-pressure chronic ulcer of other part of left foot limited to breakdown of skin ([facility]); Non-pressure chronic ulcer of other part of left foot with unspecified severity ([facility]); 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 ([facility]); Non-pressure chronic ulcer left lower leg, limited to breakdown skin ([facility]); Charcot's joint, right ankle and foot; Type 2 diabetes mellitus with diabetic peripheral angiopathy without gangrene, without long-term current use of insulin ([facility]); Peripheral vascular disease, unspecified ([facility]); Non-pressure chronic ulcer of left lower leg with fat layer exposed ([facility]) 10/12/2024 Billing Patient Not Present Internal Medicine - [address] [phone] Lee Fabian MD Type 2 diabetes mellitus with other specified complication, unspecified whether parachute rigger insulin use ([facility]) (Primary Dx); Other acute osteomyelitis, left ankle and foot ([facility]); Type 2 diabetes mellitus with diabetic peripheral angiopathy without gangrene, unspecified whether correction insulin use ([facility]); 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 ([facility]); Other specified bacterial agents as the cause of diseases classified elsewhere; Type 2 diabetes mellitus with diabetic neuropathic arthropathy, unspecified whether correction insulin use ([facility]); Charcot's joint, right ankle and foot; Paroxysmal atrial fibrillation ([facility]); Hypertensive heart and chronic kidney disease with heart failure and stage 1 through stage 4 chronic kidney disease, or unspecified chronic kidney disease ([facility]); Chronic diastolic (congestive) heart failure ([facility]) 10/11/2024 10:30 AM EST Office Visit Internal Medicine - [address] [phone] Lee Fabian MD TABITHA (acute kidney injury) ([facility]) (Primary Dx); Nicotine abuse; Iron deficiency anemia due to chronic blood loss; Fall in home, initial encounter 10/07/2024 11:15 AM EST Office Visit Internal Medicine - [address] [phone] Bib Yadav NP Impacted cerumen of right ear (Primary Dx) 10/06/2024 11:00 AM EST Office Visit [facility] [address] [place] [phone] Roberto Murguia PA Type 2 diabetes mellitus with foot ulcer (CODE) (CMS/HCC) (Primary Dx); Non-healing surgical wound, subsequent encounter; Abrasion of anterior left lower leg, subsequent encounter; Non-pressure chronic ulcer of other part of right foot with fat layer exposed (CMS/HCC); Non-pressure chronic ulcer of other part of left foot limited to breakdown of skin (CMS/HCC); Non-pressure chronic ulcer of other part of left foot with unspecified severity (CMS/HCC); 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 (CMS/HCC); Charcot's joint, right ankle and foot; Type 2 diabetes mellitus with diabetic peripheral angiopathy without gangrene, unspecified whether correction insulin use (CMS/HCC); Peripheral vascular disease, unspecified (CMS/HCC); Non-pressure chronic ulcer left lower leg, limited to breakdown skin (CMS/HCC) 10/04/2024 [facility] [phone] Lee Fabian MD vna 10/01/2024 [facility] [phone] Lee Fabian MD Request For Order(s) (Driss BLACKMAN) 09/21/2024 Telephone Internal Medicine - [address] [phone] Lee Fabian MD faxed order (Driss blackman tracking #[id number]) 09/19/2024 11:18 PM EST - 09/20/2024 3:13 AM EST Emergency [facility] [address] [place] [phone] Gaston Hendrix MD Bleeding from wound (Primary Dx); Renal insufficiency; Anemia, unspecified type Discharge Disposition: Home or Self Care 09/17/2024 [facility] [phone] Lee Fabian MD vna 09/14/2024 Telephone [facility] [address] [place] [phone] Meli Kaufman RN 09/10/2024 Tele[facility] [phone] Lee Fabian MD Faxed Order (Victoria VNA) 09/09/2024 [place] [facility] [address] [place] [address] Lee Fabian MD Faxed Order (Victoria VNA ) 09/08/2024 [place] Internal Medicine - [address] [phone] Lee Fabian MD vna call 09/06/2024 [place] Internal Medicine - [address] [phone] Lee Fabian MD from Last 3 Months Immunizations Name Administration Dates Next Due Influenza Quadravalent, MDCK , 0.5ml, preservative free (Flucelvax) 6mo and older 07/18/2022,06/26/2020 Influenza Quadravalent, MDCK , 0.5ml, with preservative (Flucelvax) 6mo and older 06/17/2021,07/08/2018 Influenza trivalent, 0.5mL, preservative free (Fluarix; FluLaval; Fluzone) ages 6mo and older (Afluria) 3 years and older 06/22/2024,05/20/2017,06/04/2016,06/18,06/19/2010 Influenza, Unspecified 07/08/2023,05/20/2017 Pfizer SARS-CoV-2 COVID-19, mRNA, LNP-S, preservative free 07/08/2023,08/15/2021 Pneumococcal polysaccharide 23 valent (Pneumovax 23) 2yo and older 01/05/2017,11/11/2015 Tdap Tetanus diptheria acell ular pertussis (Boostrix; Adacel) 7yo and older 04/09/2020,12/16/2017 Zoster recombinant (Shingrix ) 19yo and older 04/13/2018,12/16/2017 Surgical History Surgery Date Site/Laterality Comments BARIATRIC SURGERY 09/29/2017 - 09/28/2018 FOOT SURGERY 09/29/2014 - 09/28/2015 Right had 4 more surguries following this reconstrution FOOT SURGERY 09/29/2017 - 09/28/2018 Right Right TMA KNEE SURGERY 09/29/2015 - 09/28/2016 Left got infected, removal of hardware and replaced with new in the same year PACEMAKER PROCEDURE 09/29/2015 - 09/28/2016 CARDIOVERSION PACEMAKER INSERTION FOOT SURGERY 09/10/2024 Left CALCANECTOMY Medical History Medical History Date Comments Type II or unspecified type diabetes mellitus without mention of complication, not stated as uncontrolled 09/10/2006 DX:Type II or unspecified ty pe diabetes mellitus without mention of complication, not stated as uncontrolled Obesity, unspecified 09/10/2006 DX:Obesity, unspecified Other and unspecified hyperlipidemia 09/10/2006 DX:Other and unspecified hyperlipidemia Tobacco use disorder 09/10/2006 DX:Tobacco use disorder; COMMENT: stopped 10/2003 Other and unspecified hyperlipidemia 09/10/2006 DX:Other and unspecified hyperlipidemia Osteoarthrosis, unspecified whether generalized or localized, lower leg 10/06/2006 DX:Osteoarthrosis, unspecified whether generalized or localized, lower leg Hypertensive disorder 12/29/2020 DX:Hyperte nsive disorder Gastroesophageal reflux disease 05/30/2024 DX:Gastroesophageal reflux disease Atrial fibrillation (CMS/HCC) 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 (CMS/HCC) Family History Medical History Relation Name Comments Arthritis Father Arthritis Mother Cataracts Mother Cataracts Sister Blindness Neg Hx Glaucoma Neg Hx Macular degeneration Neg Hx Strabismus Neg Hx Relation Name Status Comments Father Mother Sister Social History Tobacco Use Types Packs/Day Years Used Date Smoking Tobacco: Every Day Cigarettes 1 1.3 Started: 08/06/2023; Last attempted to quit: 10/30/2003 Smokeless Tobacco: Never Tobacco Cessation:Ready to Q uit: Not Asked; Counseling Given: Not Answered Alcohol Use Standard Drinks/Week Comments Yes 12 [...] Orientation Straight 10/16/2022 10 :12 AM EST Obstetrics History Last Filed Vital Signs Vital Sign Reading Time Taken Comments Blood Pressure 124/56 10/29/2024 2:43 PM EST Pulse 72 10/29/2024 2:43 PM EST Temperature 37.3 ??C (99.1 ??F) 10/27/2024 10:[address] Respiratory Rate 18 10/27/2024 10:52 AM EST Oxygen Saturation 94% 10/27/2024 10:52 AM EST Inhaled Oxygen Concentration - - Weight 104 kg (230 lb) 10/15/2024 9:56 AM EST Height 190.5 cm (6' 3 ) 10/15/2024 9:56 AM EST Body Mass Index 28.75 10/15/2024 9:56 AM EST Plan of Treatment Upcoming Encounters Date Type Department Care Team (Late st Contact Info) Description 12/06/2024 10:30 AM EDT Office Visit Internal Medicine - [address] [phone] Lee Fabian MD [address] [place] [phone] Health Maintenance Due Date Last Done Comments Hepatitis A Vaccines (1 of 2 - Risk 2-dose series) 11/30/1979 Pneumococcal Vaccine: 50+ Years (2 of 2 - PCV) 01/05/2018 01/05/2017, 11/11/2015 Pneumococcal Vaccine: Pediatrics (0 to 5 Years) and At-Risk Patients (6 to 64 Years) (2 of 2 - PCV) 01/05/2018 01/05/2017, 11/11/2015 Depression Screening 09/07/2022 HIV Screening 09/07/2022 Medicare Annual Wellness Visit 09/07/2022 Social Influencers of Health Screening 09/07/2022 COVID-19 Vaccine ( season) 2024 07/08/2023, 09/10/2022, 03/11/2022, Additional history exists Diabetes: Blood Sugar Control Test (HGBA1C) 03/04/2025 09/03/2024, 07/22/2024, 07/22/2024, Additional history exists Diabetes: Annual Retina Eye Exam 03/17/2025 03/17/2024 Diabetes: Annual Urine Albumin-Creatinine Ratio (uACR) 04/14/2025 04/14/2024, 04/14/2024 Diabetes: Annual Foot Exam 08/25/2025 08/25/2024 Diabetes: Annual GFR (Glomerular Filtration Rate) 11/24/2025 11/24/2024, 11/23/2024, 11/23/2024, Additional history exists Hypertension/CHF/CAD Annual BMP Blood Test 11/24/2025 11/24/2024, 11/23/2024, 11/23/2024, Additional history exists Cholesterol Screening (Lipid Panel) 08/20/2029 08/20/2024, 07/22/2024, 07/22/2024, Additional history exists DTaP,Tdap,and Td Vaccines (3 - Td or Tdap) 04/09/2030 04/09/2020, 12/16/2017 Colorectal Cancer Screening: Colonoscopy 05/12/2033 05/12/2023 Hepatitis C Screening Completed 12/24/2017 Zoster Vaccines Completed 04/13/2018, 12/16/2017 RSV Immunization Patients 60+ Years Old Completed 10/28/2023 Influenza Vaccine Completed 06/22/2024, , 07/18/2022, Additional history exists HIB Vaccines Aged Out No longer eligi ble based on patient's age to complete this topic HPV Vaccines Aged Out No longer eligi ble based on patient's age to complete this topic Hepatitis B Vaccines Aged Out No long er eligible based on patient's age to complete this topic IPV Vaccines Aged Out No longer eligi ble based on patient's age to complete this topic MMR Vaccines Aged Out No longer eligi ble based on patient's age to complete this topic Meningococcal ACWY Vaccine Aged Out N o longer eligible based on patient's age to complete this topic Meningococcal B Vacine Aged Out No lo nger eligible based on patient's age to complete this topic RSV Immunization Patients Under 20 months Aged Out No longer eligible based on patient's age to complete this topic Varicella Vaccines Aged Out No longer eligible based on patient's age to complete this topic Goals Goal Patient Goal Type Associated Problems Recent Progress Patient-Stated? Author Decrease Wound Volume by X% by date (in notes) Care Plan Impaired Tissue On track( 025 11:43 AM EST) Susan Allison RN Patient and Caregiver Understand Wound Care Education Care Plan Impaired Tissue On track( 025 11:44 AM EST) Susan Allison RN Wound [...] needed related to ulceration/compr omised skin integrity. Susan Allison RN Medical Devices Implanted Type Area Hat Block Bench Hand Device Identifier Shelf Expiration Date Model / Serial / Lot Cardiac Pacemaker Cardiac Pacemaker Left: Shoulder [employer] - CARDIAC RHYTH-[facility] Procedures Procedure Name Priority Date/Time Associated Diagnosis Comments EXTERNAL INTERVENTIONAL RAD REPORT 11/22/2024 WOUND SNAP VACUUM Routine 10/27/2024 11: 38 AM EST Type 2 diabetes mellitus with foot ulcer (CODE) (CMS/HCC) Non-healing surgical wound, subsequent encounter 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 (CMS/HCC) CULTURE WOUND WITH GRAM STAIN Routine 10/27/2024 11:36 AM EST Type 2 diabetes mellitus with foot ulcer (CODE) (CMS/HCC) 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 (CMS/HCC) DEBRIDEMENT Routine 10/27/2024 11:00 AM EST Type 2 diabetes mellitus with foot ulcer (CODE) (CMS/HCC) Non-pressure chronic ulcer of other part of left foot with fat layer exposed (CMS/HCC) DEBRIDEMENT Routine 10/27/2024 11:00 AM EST Type 2 diabetes mellitus with foot ulcer (CODE) (CMS/HCC) Non-pressure chronic ulcer of other part of left foot with fat layer exposed (CMS/HCC) DEBRIDEMENT Routine 10/27/2024 11:00 AM EST Type 2 diabetes mellitus with foot ulcer (CODE) (CMS/HCC) Non-healing surgical wound, subsequent encounter 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 (CMS/HCC) DEBRIDEMENT Routine 10/27/2024 11:00 AM EST Type 2 diabetes mellitus with foot ulcer (CODE) (CMS/HCC) Non-pressure chronic ulcer of other part of right foot with fat layer exposed (CMS/HCC) DEBRIDEMENT Routine 10/27/2024 11:00 AM EST Type 2 diabetes mellitus with foot ulcer (CODE) (CMS/HCC) Non-pressure chronic ulcer of other part of right foot with fat layer exposed (CMS/HCC) WOUND SNAP VACUUM Routine 10/20/2024 11: 03 AM EST Type 2 diabetes mellitus with foot ulcer (CODE) (CMS/HCC) Non-healing surgical wound, subsequent encounter 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 (CMS/HCC) Peripheral vascular disease, unspecified (CMS/HCC) DEBRIDEMENT Routine 10/20/2024 11:00 AM EST Type 2 diabetes mellitus with foot ulcer (CODE) (CMS/HCC) Non-healing surgical wound, subsequent encounter Peripheral vascular disease, unspecified (CMS/HCC) DEBRIDEMENT Routine 10/20/2024 11:00 AM EST Type 2 diabetes mellitus with foot ulcer (CODE) (CMS/HCC) Non-pressure chronic ulcer of other part of right foot with fat layer exposed (CMS/HCC) Charcot's joint, right ankle and foot Peripheral vascular disease, unspecified (CMS/HCC) DEBRIDEMENT Routine 10/20/2024 11:00 AM EST Type 2 diabetes mellitus with foot ulcer (CODE) (CMS/HCC) Non-pressure chronic ulcer of other part of right foot with fat layer exposed (CMS/HCC) Charcot's joint, right ankle and foot Peripheral vascular disease, unspecified (CMS/HCC) CBC WITH AUTO DIFFERENTIAL Routine 10/15/2024 10:37 AM EST Elevated liver enzymes Non-healing non-surgical wound Diabetes 1.5, managed as type 2 (CMS/HCC) Atrial fibrillation, unspecified type (CMS/HCC) IRON Routine 10/15/2024 10:37 AM EST Elevated liver enzymes Non-healing non-surgical wound Diabetes 1.5, managed as type 2 (CMS/HCC) Atrial fibrillation, unspecified type (CMS/HCC) FERRITIN Routine 10/15/2024 10:37 AM EST Elevated liver enzymes Non-healing non-surgical wound Diabetes 1.5, managed as type 2 (CMS/HCC) Atrial fibrillation, unspecified type (CMS/HCC) COMPREHENSIVE METABOLIC PANEL Routine 10/15/2024 10:37 AM EST Elevated liver enzymes Non-healing non-surgical wound Diabetes 1.5, managed as type 2 (CMS/HCC) Atrial fibrillation, unspecified type (CMS/HCC) CBC AND DIFFERENTIAL Routine 10/15/2024 10:37 AM EST Elevated liver enzymes Non-healing non-surgical wound Diabetes 1.5, managed as type 2 (CMS/HCC) Atrial fibrillation, unspecified type (CMS/HCC) DEBRIDEMENT Routine 10/13/2024 11:00 AM EST Type 2 diabetes mellitus with foot ulcer (CODE) (CMS/HCC) Non-healing surgical wound, subsequent encounter 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 (CMS/HCC) Type 2 diabetes mellitus with diabetic peripheral angiopathy without gangrene, without long-term current use of insulin (CMS/HCC) Peripheral vascular disease, unspecified (CMS/HCC) DEBRIDEMENT Routine 10/13/2024 11:00 AM EST Type 2 diabetes mellitus with foot ulcer (CODE) (CMS/HCC) Charcot's joint, right ankle and foot Type 2 diabetes mellitus with diabetic peripheral angiopathy without gangrene, without long-term current use of insulin (CMS/HCC) Peripheral vascular disease, unspecified (CMS/HCC) DEBRIDEMENT Routine 10/13/2024 11:00 AM EST Type 2 diabetes mellitus with foot ulcer (CODE) (CMS/HCC) Non-pressure chronic ulcer of other part of right foot with fat layer exposed (CMS/HCC) Charcot's joint, right ankle and foot Type 2 diabetes mellitus with diabetic peripheral angiopathy without gangrene, without long-term current use of insulin (CMS/HCC) Peripheral vascular disease, unspecified (CMS/HCC) DEBRIDEMENT Routine 10/13/2024 11:00 AM EST Type 2 diabetes mellitus with foot ulcer (CODE) (CMS/HCC) Non-pressure chronic ulcer left lower leg, limited to breakdown skin (CMS/HCC) Type 2 diabetes mellitus with diabetic peripheral angiopathy without gangrene, without long-term current use of insulin (CMS/HCC) Peripheral vascular disease, unspecified (CMS/HCC) TRIIODOTHYRONINE FREE Routine 10/11/2024 11:22 AM EST Nonspecific abnormal results of thyroid function study Paroxysmal atrial fibrillation (CMS/HCC) FREE THYROXINE WITH REFLEX TO FREE TRIIODOTHYRONINE Routine 10/11/2024 11:22 AM EST Nonspecific abnormal results of thyroid function study Paroxysmal atrial fibrillation (CMS/HCC) COMPLETE BLOOD COUNT Routine 10/11/2024 11:22 AM EST Iron deficiency anemia due to chronic blood loss THYROID STIMULATING HORMONE WITH REFLEX TO FREE T4 AND FREE T3 Routine 10/11/2024 11:22 AM EST Nonspecific abnormal results of thyroid function study Paroxysmal atrial fibrillation (CMS/HCC) BASIC METABOLIC PANEL Routine 10/11/2024 11:22 AM EST TABITHA (acute kidney injury) (CMS/HCC) DEBRIDEMENT Routine 10/06/2024 11:00 AM EST Type 2 diabetes mellitus with foot ulcer (CODE) (CMS/HCC) Non-healing surgical wound, subsequent encounter 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 (CMS/HCC) Type 2 diabetes mellitus with diabetic peripheral angiopathy without gangrene, unspecified whether parachute rigger insulin use (CMS/HCC) Peripheral vascular disease, unspecified (CMS/HCC) DEBRIDEMENT Routine 10/06/2024 11:00 AM EST Type 2 diabetes mellitus with foot ulcer (CODE) (CMS/HCC) Abrasion of anterior left lower leg, subsequent encounter Non-pressure chronic ulcer of other part of left foot limited to breakdown of skin (CMS/HCC) Type 2 diabetes mellitus with diabetic peripheral angiopathy without gangrene, unspecified whether parachute rigger insulin use (CMS/HCC) Peripheral vascular disease, unspecified (CMS/HCC) DEBRIDEMENT Routine 10/06/2024 11:00 AM EST Type 2 diabetes mellitus with foot ulcer (CODE) (CMS/HCC) Non-pressure chronic ulcer of other part of right foot with fat layer exposed (CMS/HCC) Type 2 diabetes mellitus with diabetic peripheral angiopathy without gangrene, unspecified whether correction insulin use (CMS/HCC) Peripheral vascular disease, unspecified (CMS/HCC) DEBRIDEMENT Routine 10/06/2024 11:00 AM EST Type 2 diabetes mellitus with foot ulcer (CODE) ([facility]) Non-pressure chronic ulcer of other part of right foot with fat layer exposed ([facility]) Type 2 diabetes mellitus with diabetic peripheral angiopathy without gangrene, unspecified whether correction insulin use ([facility]) Peripheral vascular disease, unspecified ([facility]) CBC WITH AUTO DIFFERENTIAL STAT 09/19/2024 11:49 PM EST LACTATE, WITH REFLEX STAT 09/19/2024 11:49 PM EST PROTHROMBIN TIME WITH INR STAT 09/19/2024 11:49 PM EST BASIC METABOLIC PANEL STAT 09/19/2024 11:49 PM EST CBC AND DIFFERENTIAL STAT 09/19/2024 11:49 PM EST LIPID PANEL WITH REFLEX TO DIRECT LDL Routine 08/20/2024 6:25 AM EST HEMOGLOBIN A1C Routine 07/22/2024 URINE ALBUMIN CREATININE RATIO Routine 04/14/2024 DIABETES EYE EXAM Routine 03/17/2024 COLONOSCOPY Routine 05/12/2023 HEPATITIS C SCREENING Routine 12/24/2017 from Last 3 Months or Most Recently Relevant to Health Maintenance Results * External Interventional Rad Report (11/22/2024) Anatomical Region Laterality Modality Interventional R adiology us Provider [facility] IR PROCEDURES Final Result * Wound Snap Vacuum Diabetic Ulcer Left;Plantar Heel (10/27/2024 11:38 AM EST) Narrative Susan Peralta RN - 10/27/2024 11:38 AM EST Susan Peralta RN ? 10/27/2024 11:49 AM Wound Snap Vacuum Diabetic Ulcer Left;Plantar Heel Date/Time: 10/27/2024 11:38 AM Performed by: Shalini Duque RN Authorized by: POOJA Conley ?? Associated wounds: Wound Diabetic Ulcer 08/03/24 Heel Left;Plantar Consent: ??Consent obtained: ??Verbal ??Consent given by: ??Patient ??Risks discussed: ??Infection and pain ??Alternatives discussed: ??Delayed treatment [place] protocol: ??Procedure explained and questions answered to patient or proxy's satisfaction: yes ?Relevant documents present and verified: yes ?Patient identity confirmed: ??Verbally with patient Indications: ??Indications: ??Open Wound Pre-procedure details: ??Skin preparation: ??Sterile normal saline Sedation: ??Sedation type: ??None Anesthesia: ??Anesthesia method: ??Topical application Procedure specific details: ?? Applied white foam to undermining. Black foam to base of wound. Alginate ag and 2x2 gauze covered with drape to the more proximal portion of the wound. Vac set to 150mmHg continuous. Post-procedure details: ??Procedure completion: ??Tolerated us Roberto PATTON IN CLINIC/BEDSIDE ORDERABLE S Final Result * (ABNORMAL) Culture wound with gram stain (10/27/2024 11:36 AM EST) Culture, Wound Methicillin-Resista nt Staphylococcus aureus(A) PATTI 10/30/2024 12:50 PM EST [facility] Comment: The organism value for this result has been updated. These results have been appended to the previously preliminary verified report. Edited result: Previously reported as Staphylococcus aureus on 10/29/2024 at 1226 EST. Culture, Wound Enterococcus faecalis(A) PATTI 10/30/2024 12:50 PM EST [facility] Comment: The organism value for this result has been updated. These results have been appended to the previously preliminary verified report. Edited result: Previously reported as Gram Positive Cocci on 10/29/2024 at 1226 EST. Culture, Wound Vancomycin resistant Enterococcus faecium(A) PATTI 10/30/2024 12:50 PM EST [facility] Comment: The organism value for this result has been updated. These results have been appended to the previously preliminary verified report. Edited result: Previously reported as Gram Positive Cocci on 10/30/2024 at 1235 EST. Culture, Wound Corynebacterium species(A) PATTI 10/30/2024 12:50 PM [facility] Comment: The organism value for this result has been updated. These results have been appended to the previously preliminary verified report. Gram Stain Result Moderate Polymorphonuclear leukocytes(A) 10/30/2024 12:50 PM EST [facility] Gram Stain Result Many Gram positive cocci in pairs and clusters(A) 10/30/2024 12:50 PM [facility] Gram Stain Result Few Gram negative bacilli(A) 10/30/2024 12:50 PM [facility] Gram Stain Result No epithelial cells seen(A) 10/30/2024 12:50 PM [facility] Swab Structure of left foot / Unknown Non-blood Collection / Unknown 10/27/2024 11:36 AM EST 10/27/2024 4:24 PM EST Narrative Organism Antibiotic Method Susceptibility Methicillin-Resistant Staphylococcus aureus Benzylpenicillin PATTI >=0.5 ug/ml: Resistant Methicillin-Resistant Staphylococcus aureus Oxacillin PATTI >=4 ug/ml: Resistant Methicillin-Resistant Staphylococcus aureus Gentamicin PATTI <=0.5 ug/ml: Susceptible Methicillin-Resistant Staphylococcus aureus Ciprofloxacin PATTI <=0.5 ug/ml: Susceptible Methicillin-Resistant Staphylococcus aureus Levofloxacin PATTI <=0.12 ug/ml: Susceptible Methicillin-Resistant Staphylococcus aureus Erythromycin PATTI <=0.25 ug/ml: Susceptible Methicillin-Resistant Staphylococcus aureus Clindamycin PATTI <=0.25 ug/ml: Susceptible Methicillin-Resistant Staphylococcus aureus Linezolid PATTI 1 ug/ml: Susceptible Methicillin-Resistant Staphylococcus aureus Vancomycin PATTI 1 ug/ml: Susceptible Methicillin-Resistant Staphylococcus aureus Tetracycline PATTI >=16 ug/ml: Resistant Methicillin-Resistant Staphylococcus aureus Rifampin PATTI <=0.5 ug/ml: Susceptible Methicillin-Resistant Staphylococcus aureus Trimethoprim/Sulfamethoxazo le PATTI <=10 ug/ml: Susceptible Enterococcus faecalis Benzylpenicillin PATTI 4 ug/ml: Susceptible Enterococcus faecalis Ampicillin PATTI <=2 ug/ml: Susceptible Enterococcus faecalis Linezolid PATTI 2 ug/ml: Susceptible Enterococcus faecalis Vancomycin PATTI 1 ug/ml: Susceptible Vancomycin resistant Enterococcus faecium Benzylpenicillin PATTI >=64 ug/ml: Resistant Vancomycin resistant Enterococcus faecium Ampicillin PATTI >=32 ug/ml: Resistant Vancomycin resistant Enterococcus faecium Quinupristin/Dalfopristin PATTI 0.5 ug/ml: Susceptible Vancomycin resistant Enterococcus faecium Linezolid PATTI 2 ug/ml: Susceptible Vancomycin resistant Enterococcus faecium Vancomycin PTATI >=32 ug/ml: Resistant Roberto PATTON LAB MICROBIOLOGY - GENERAL ORDERABLES Final Result [facility] [address] [place] [address], * Debridement Diabetic Ulcer Left Toe D5, Fifth (10/27/2024 11:00 AM EST) Roberto Cordero PA - 10/27/2024 11:00 AM EST POOJA Conley ? 10/27/2024 11:49 AM Debridement Diabetic Ulcer Left Toe D5, Fifth Performed by: POOJA Conley Authorized by: POOJA Conley ?? Associated wounds: Wound Diabetic Ulcer 10/06/24 Toe D5, Fifth Left Consent: ??Consent obtained: ??Verbal ??Consent given by: ??Patient ??Risks discussed: Yes ?? Time out: Immediately prior to the procedure a time out was called ?? Debridement Details: ??Performed by: ??PA ??Type: surgical ?Level: subcutaneous tissue ?Pain control: ??Lidocaine 4% ??Severity of Tissue Pre Debridement: ??Fat layer exposed ??Severity of Tissue Post Debridement: ??Fat layer exposed ??Time taken: ??10/27/2024 11:21 AM ??Length (cm): ??1 ??Width (cm): ??0.5 ??Depth (cm): ??0.1 ??Area (cm^2): ??0.5 ??Time taken: ??10/27/2024 11:22 AM ??Length (cm): ??1 ??Width (cm): ??0.5 ??Depth (cm): ??0.1 ??Percent Debrided (%): ??100 ??Surface Area (cm^2): ??0.5 ??Area Debrided (cm^2): ??0.5 ??Volume (cm^3): ??0.05 ??Tissue and other material debrided: dermis, epidermis and subcutaneous tissue ?Devitalized tissue debrided: biofilm, exudate, fibrin and slough ?Instrument: ??Curette ??Amount of bleeding: none ?Hemostasis obtained with: ??Not applicable ??Procedural pain: ??0 ??Post-procedural pain: ??0 ??Response to treatment: ??Procedure was tolerated well us Roberto PATTON IN CLINIC/BEDSIDE ORDERABLE S Final Result * Debridement Diabetic Ulcer Left Toe D1, Great (10/27/2024 11:00 AM EST) Roberto Cordero PA - 10/27/2024 11:00 AM EST POOJA Conley ? 10/27/2024 11:49 AM Debridement Diabetic Ulcer Left Toe D1, Great Performed by: POOJA Conley Authorized by: POOJA Conley ?? Associated wounds: Wound Diabetic Ulcer 10/06/24 Toe D1, Great Left Consent: ??Consent obtained: ??Verbal ??Consent given by: ??Patient ??Risks discussed: Yes ?? Time out: Immediately prior to the procedure a time out was called ?? Debridement Details: ??Performed by: ??PA ??Type: surgical ?Level: subcutaneous tissue ?Pain control: ??Lidocaine 4% ??Severity of Tissue Pre Debridement: ??Fat layer exposed ??Severity of Tissue Post Debridement: ??Fat layer exposed ??Time taken: ??10/27/2024 11:21 AM ??Length (cm): ??0.8 ??Width (cm): ??0.8 ??Depth (cm): ??0.1 ??Area (cm^2): ??0.64 ??Time taken: ??10/27/2024 11:22 AM ??Length (cm): ??0.8 ??Width (cm): ??0.8 ??Depth (cm): ??0.1 ??Percent Debrided (%): ??100 ??Surface Area (cm^2): ??0.64 ??Area Debrided (cm^2): ??0.64 ??Volume (cm^3): ??0.06 ??Tissue and other material debrided: dermis, epidermis and subcutaneous tissue ?Devitalized tissue debrided: biofilm, exudate, fibrin and slough ?Instrument: ??Curette ??Amount of bleeding: none ?Hemostasis obtained with: ??Not applicable ??Procedural pain: ??0 ??Post-procedural pain: ??0 ??Response to treatment: ??Procedure was tolerated well us Roberto PATTON IN CLINIC/BEDSIDE ORDERABLE S Final Result * Debridement Diabetic Ulcer Left;Plantar Heel (10/27/2024 11:00 AM EST) Roberto Cordero PA - 10/27/2024 11:00 AM EST POOJA Conley ? 10/27/2024 11:49 AM Debridement Diabetic Ulcer Left;Plantar Heel Performed by: POOJA Conley Authorized by: POOJA Conley ?? Associated wounds: Wound Diabetic Ulcer 08/03/24 Heel Left;Plantar Consent: ??Consent obtained: ??Verbal ??Consent given by: ??Patient ??Risks discussed: Yes ?? Time out: Immediately prior to the procedure a time out was called ?? Debridement Details: ??Performed by: ??POOJA ??Type: surgical ?Level: muscle ?Pain control: ??Lidocaine 4% ??Severity of Tissue Pre Debridement: ??Muscle involvement without necrosis ??Severity of Tissue Post Debridement: ??Muscle involvement without necrosis ??Time taken: ??10/27/2024 11:13 AM ??Length (cm): ??11.6 (Cluster 2) ??Width (cm): ??6 ??Depth (cm): ??1.6 ??Area (cm^2): ??69.6 ??Time taken: ??10/27/2024 11:14 AM ??Length (cm): ??11.6 ??Width (cm): ??6 ??Depth (cm): ??1.6 ??Percent Debrided (%): ??75 ??Surface Area (cm^2): ??69.6 ??Area Debrided (cm^2): ??52.2 ??Volume (cm^3): ??111.36 ??Tissue and other material debrided: dermis, epidermis, muscle and subcutaneous tissue ?Devitalized tissue debrided: biofilm, necrotic debris and slough ?Instrument: ??Blade and forceps ??Amount of bleeding: small ?Hemostasis obtained with: ??Silver nitrate ??Procedural pain: ??0 ??Post-procedural pain: ??0 ??Response to treatment: ??Procedure was tolerated well us Roberto PATTON IN CLINIC/BEDSIDE ORDERABLE S Final Result * Debridement Diabetic Ulcer Right;Proximal;Plantar Foot (10/27/2024 11:00 AM EST) Roberto Cordero PA - 10/27/2024 11:00 AM EST POOJA Conley ? 10/27/2024 11:49 AM Debridement Diabetic Ulcer Right;Proximal;Plantar Foot Performed by: POOJA Conley Authorized by: POOJA Conley ?? Associated wounds: Wound Diabetic Ulcer 10/06/24 Foot Right;Proximal;Plantar Consent: ??Consent obtained: ??Verbal ??Consent given by: ??Patient ??Risks discussed: Yes ?? Time out: Immediately prior to the procedure a time out was called ?? Debridement Details: ??Performed by: ??POOJA ??Type: surgical ?Level: subcutaneous tissue ?Pain control: ??Lidocaine 4% ??Severity of Tissue Pre Debridement: ??Fat layer exposed ??Severity of Tissue Post Debridement: ??Fat layer exposed ??Time taken: ??10/27/2024 11:03 AM ??Length (cm): ??0.6 ??Width (cm): ??0.4 ??Depth (cm): ??0.1 ??Area (cm^2): ??0.24 ??Time taken: ??10/27/2024 11:04 AM ??Length (cm): ??0.6 ??Width (cm): ??0.4 ??Depth (cm): ??0.1 ??Percent Debrided (%): ??100 ??Surface Area (cm^2): ??0.24 ??Area Debrided (cm^2): ??0.24 ??Volume (cm^3): ??0.02 ??Tissue and other material debrided: dermis, epidermis and subcutaneous tissue ?Devitalized tissue debrided: biofilm, callus and slough ?Instrument: ??Blade and forceps ??Amount of bleeding: small ?Hemostasis obtained with: ??Silver nitrate ??Procedural pain: ??0 ??Post-procedural pain: ??0 ??Response to treatment: ??Procedure was tolerated well us Roberto PATTON IN CLINIC/BEDSIDE ORDERABLE S Final Result * Debridement Diabetic Ulcer Right;Plantar Foot (1st met, TMA hx) (10/27/2024 11:00 AM EST) Roberto Cordero PA - 10/27/2024 11:00 AM EST POOJA Conley ? 10/27/2024 11:49 AM Debridement Diabetic Ulcer Right;Plantar Foot (1st met, TMA hx) Performed by: POOJA Conley Authorized by: POOJA Conley ?? Associated wounds: Wound Diabetic Ulcer 03/02/24 Foot Right;Plantar Consent: ??Consent obtained: ??Verbal ??Consent given by: ??Patient ??Risks discussed: Yes ?? Time out: Immediately prior to the procedure a time out was called ?? Debridement Details: ??Performed by: ??PA ??Type: surgical ?Level: subcutaneous tissue ?Pain control: ??Lidocaine 4% ??Severity of Tissue Pre Debridement: ??Fat layer exposed ??Severity of Tissue Post Debridement: ??Fat layer exposed ??Time taken: ??10/27/2024 11:01 AM ??Length (cm): ??0.7 ??Width (cm): ??0.5 ??Depth (cm): ??0.2 ??Area (cm^2): ??0.35 ??Time taken: ??10/27/2024 11:02 AM ??Length (cm): ??0.7 ??Width (cm): ??0.5 ??Depth (cm): ??0.2 ??Percent Debrided (%): ??100 ??Surface Area (cm^2): ??0.35 ??Area Debrided (cm^2): ??0.35 ??Volume (cm^3): ??0.07 ??Tissue and other material debrided: dermis, epidermis and subcutaneous tissue ?Devitalized tissue debrided: biofilm, callus and slough ?Instrument: ??Blade and forceps ??Amount of bleeding: small ?Hemostasis obtained with: ??Silver nitrate ??Procedural pain: ??0 ??Post-procedural pain: ??0 ??Response to treatment: ??Procedure was tolerated well us Roberto PATTON IN CLINIC/BEDSIDE ORDERABLE S Final Result * Wound Snap Vacuum Diabetic Ulcer Left;Plantar Heel (10/20/2024 11:03 AM EST) Narrative Winston Collins MD - 10/20/2024 11:03 AM EST POOJA Conley ? 10/20/2024 11:54 AM Wound Snap Vacuum Diabetic Ulcer Left;Plantar Heel Date/Time: 10/20/2024 11:03 AM Performed by: Shalini Duque RN Authorized by: POOJA Conley ?? Associated wounds: Wound Diabetic Ulcer 08/03/24 Heel Left;Plantar Consent: ??Consent obtained: ??Verbal ??Consent given by: ??Patient ??Risks discussed: ??Infection and pain ??Alternatives discussed: ??Delayed treatment [place] protocol: ??Procedure explained and questions answered to patient or proxy's satisfaction: yes ?Relevant documents present and verified: yes ?Patient identity confirmed: ??Verbally with patient Indications: ??Indications: ??Open Wound Pre-procedure details: ??Skin preparation: ??Sterile normal saline Sedation: ??Sedation type: ??None Anesthesia: ??Anesthesia method: ??Topical application Procedure specific details: ?? Black and white foam used in wound. Setting of 150mmHg. Post-procedure details: ??Procedure completion: ??Tolerated us Roberto PATTON IN CLINIC/BEDSIDE ORDERABLE S Final Result * Debridement Diabetic Ulcer Left;Plantar Heel (10/20/2024 11:00 AM EST) Narrative Winston Collins MD - 10/20/2024 11:00 AM EST POOJA Conley ? 10/20/2024 11:54 AM Debridement Diabetic Ulcer Left;Plantar Heel Performed by: POOJA Conley Authorized by: POOJA Conley ?? Associated wounds: Wound Diabetic Ulcer 08/03/24 Heel Left;Plantar Consent: ??Consent obtained: ??Verbal ??Consent given by: ??Patient ??Risks discussed: Yes ?? Time out: Immediately prior to the procedure a time out was called ?? Debridement Details: ??Performed by: ??PA ??Type: surgical ?Level: muscle ?Pain control: ??Lidocaine 4% ??Severity of Tissue Pre Debridement: ??Muscle involvement without necrosis ??Severity of Tissue Post Debridement: ??Muscle involvement without necrosis ??Time taken: ??10/20/2024 10:51 AM ??Length (cm): ??12 ??Width (cm): ??6.2 ??Depth (cm): ??1.7 ??Area (cm^2): ??74.4 ??Time taken: ??10/20/2024 10:52 AM ??Length (cm): ??12 ??Width (cm): ??6.2 ??Depth (cm): ??1.7 ??Percent Debrided (%): ??75 ??Surface Area (cm^2): ??74.4 ??Area Debrided (cm^2): ??55.8 ??Volume (cm^3): ??126.48 ??Tissue and other material debrided: dermis, epidermis, muscle and subcutaneous tissue ?Devitalized tissue debrided: biofilm, exudate, fibrin, necrotic debris and slough ?Instrument: ??Curette, forceps and blade ??Amount of bleeding: none ?Procedural pain: ??Insensate ??Post-procedural pain: ??Insensate ??Response to treatment: ??Procedure was tolerated well us Roberto PATTON IN CLINIC/BEDSIDE ORDERABLE S Final Result * Debridement Diabetic Ulcer Right;Proximal;Plantar Foot (10/20/2024 11:00 AM EST) Narrative Winston Collins MD - 10/20/2024 11:00 AM EST POOJA Conley ? 10/20/2024 11:54 AM Debridement Diabetic Ulcer Right;Proximal;Plantar Foot Performed by: POOJA Conley Authorized by: POOJA Conley ?? Associated wounds: Wound Diabetic Ulcer 10/06/24 Foot Right;Proximal;Plantar Consent: ??Consent obtained: ??Verbal ??Consent given by: ??Patient ??Risks discussed: Yes ?? Time out: Immediately prior to the procedure a time out was called ?? Debridement Details: ??Performed by: ??PA ??Type: surgical ?Level: subcutaneous tissue ?Pain control: ??Lidocaine 4% ??Severity of Tissue Pre Debridement: ??Fat layer exposed ??Severity of Tissue Post Debridement: ??Fat layer exposed ??Time taken: ??10/20/2024 10:54 AM ??Length (cm): ??1 ??Width (cm): ??0.4 ??Depth (cm): ??0.1 ??Area (cm^2): ??0.4 ??Time taken: ??10/20/2024 10:55 AM ??Length (cm): ??1 ??Width (cm): ??0.4 ??Depth (cm): ??0.1 ??Percent Debrided (%): ??100 ??Surface Area (cm^2): ??0.4 ??Area Debrided (cm^2): ??0.4 ??Volume (cm^3): ??0.04 ??Tissue and other material debrided: dermis, epidermis and subcutaneous tissue ?Devitalized tissue debrided: biofilm, callus and slough ?Instrument: ??Curette, blade and forceps ??Amount of bleeding: small ?Hemostasis obtained with: ??Silver nitrate ??Procedural pain: ??0 ??Post-procedural pain: ??0 ??Response to treatment: ??Procedure was tolerated well us Roberto PATTON IN CLINIC/BEDSIDE ORDERABLE S Final Result * Debridement Diabetic Ulcer Right;Plantar Foot (1st met, TMA hx) (10/20/2024 11:00 AM EST) Narrative Winston Collins MD - 10/20/2024 11:00 AM EST POOJA Conley ? 10/20/2024 11:54 AM Debridement Diabetic Ulcer Right;Plantar Foot (1st met, TMA hx) Performed by: POOJA Conley Authorized by: POOJA Conley ?? Associated wounds: Wound Diabetic Ulcer 03/02/24 Foot Right;Plantar Consent: ??Consent obtained: ??Verbal ??Consent given by: ??Patient ??Risks discussed: Yes ?? Time out: Immediately prior to the procedure a time out was called ?? Debridement Details: ??Performed by: ??PA ??Type: surgical ?Level: subcutaneous tissue ?Pain control: ??Lidocaine 4% ??Severity of Tissue Pre Debridement: ??Fat layer exposed ??Severity of Tissue Post Debridement: ??Fat layer exposed ??Time taken: ??10/20/2024 10:55 AM ??Length (cm): ??0.7 ??Width (cm): ??0.3 ??Depth (cm): ??0.3 ??Area (cm^2): ??0.21 ??Time taken: ??10/20/2024 10:56 AM ??Length (cm): ??0.7 ??Width (cm): ??0.3 ??Depth (cm): ??0.3 ??Percent Debrided (%): ??100 ??Surface Area (cm^2): ??0.21 ??Area Debrided (cm^2): ??0.21 ??Volume (cm^3): ??0.06 ??Tissue and other material debrided: dermis, epidermis and subcutaneous tissue ?Devitalized tissue debrided: biofilm, callus, fibrin and slough ?Instrument: ??Curette, forceps and blade ??Amount of bleeding: none ?Hemostasis obtained with: ??Not applicable ??Procedural pain: ??0 ??Post-procedural pain: ??0 ??Response to treatment: ??Procedure was tolerated well us Roberto PATTON IN CLINIC/BEDSIDE ORDERABLE S Final Result * (ABNORMAL) CBC auto differential (10/15/2024 10:37 AM EST) Only the most recent of2 resultswithin the time period is included. WBC 6.8 4.8 - 10.8 K/mcL LAB HEMETOLOGY METHOD 10/15/2024 3:29 PM [facility] RBC 3.20(L) 4.50 - 5.50 M/mcL LAB HEMETOLOGY METHOD 10/15/2024 3:29 PM [facility] Hemoglobin 9.5(L) 13.5 - 17.5 g/dL LAB HEMETOLOGY METHOD 10/15/2024 3:29 PM [facility] Hematocrit 31.8(L) 42.0 - 54.0 % LAB HEMETOLOGY METHOD 10/15/2024 3:29 PM [facility] MCV 100.6(H) 79.0 - 98.0 FL LAB HEMETOLOGY METHOD 10/15/2024 3:29 PM [facility] MCH 30.1 27.0 - 32.0 pcg LAB HEMETOLOGY METHOD 10/15/2024 3:29 PM [facility] MCHC 29.9(L) 32.0 - 37.0 g/dL LAB HEMETOLOGY METHOD 10/15/2024 3:29 PM [facility] RDW 14.5 11.0 - 15.0 % LAB HEMETOLOGY METHOD 10/15/2024 3:29 PM [facility] Platelets 364 130 - 400 K/mcL LAB HEMETOLOGY METHOD 10/15/2024 3:29 PM [facility] MPV 9.9 7.0 - 11.0 FL LAB HEMETOLOGY METHOD 10/15/2024 3:29 PM [facility] NRBC 0.0 <1.0 % LAB HEMETOLOGY METHOD 10/15/2024 3:29 PM [facility] NRBC Absolute 0.00 <0.10 K/mcL LAB HEMETOLOGY METHOD 10/15/2024 3:29 PM [facility] Neutrophils Relative 71.3 % LAB HEMETOLOGY METHOD 10/15/2024 3:29 PM [facility] Lymphocytes Relative 13.1 % LAB HEMETOLOGY METHOD 10/15/2024 3:29 PM [facility] Monocytes Relative 11.5 % LAB HEMETOLOGY METHOD 10/15/2024 3:29 PM [facility] Eosinophils Relative 2.2 % LAB HEMETOLOGY METHOD 10/15/2024 3:29 PM [facility] Basophils Relative 0.7 % LAB HEMETOLOGY METHOD 10/15/2024 3:29 PM [facility] Immature Granulocytes Relative 1.2 % LAB HEMETOLOGY METHOD 10/15/2024 3:29 PM [facility] Neutrophils Absolute 4.86 1.50 - 7.00 K/mcL LAB HEMETOLOGY METHOD 10/15/2024 3:29 PM [facility] Lymphocytes Absolute 0.89(L) 1.00 - 5.00 K/mcL LAB HEMETOLOGY METHOD 10/15/2024 3:29 PM [facility] Monocytes Absolute 0.78 0.20 - 1.00 K/mcL LAB HEMETOLOGY METHOD 10/15/2024 3:29 PM [facility] Eosinophils Absolute 0.15 0.00 - 0.50 K/mcL LAB HEMETOLOGY METHOD 10/15/2024 3:29 PM [facility] Basophils Absolute 0.05 0.00 - 0.20 K/mcL LAB HEMETOLOGY METHOD 10/15/2024 3:29 PM EST [facility] Immature Granulocytes Absolute 0.08(H) 0.00 - 0.03 K/[facility] LAB HEMETOLOGY METHOD 10/15/2024 3:29 PM EST [facility] Blood Venous blood specimen / Unknown Venipuncture / Unknown 10/15/2024 10:37 AM EST 10/15/2024 10:37 AM EST us Vishal Oconnell PA LAB BLOOD ORDERABLES Final Resu lt [facility] [address] [place] [address], [place] [phone] * (ABNORMAL) Iron (10/15/2024 10:37 AM EST) Iron 19(L) 50 - 160 mcg/dL LAB CHEMISTRY METHOD 10/15/2024 10:10 PM EST [facility] Blood Venous blood specimen / Unknown Venipuncture / Unknown 10/15/2024 10:37 AM EST 10/15/2024 10:37 AM EST us Vishal PATTON LAB BLOOD ORDERABLES Final Resu lt [facility] [address] [place] [address], [place] [phone] * Ferritin (10/15/2024 10:37 AM EST) Ferritin 36 26 - 388 ng/mL LAB CHEMISTRY METHOD 10/15/2024 10:11 PM EST [facility] Blood Venous blood specimen / Unknown Venipuncture / Unknown 10/15/2024 10:37 AM EST 10/15/2024 10:37 AM EST us Vishal Baezs PA LAB BLOOD ORDERABLES Final Resu lt [facility] [address] [place] [address], * (ABNORMAL) Comprehensive metabolic panel (10/15/2024 10:37 AM EST) Sodium 140 133 - 145 mmol/L LAB CHEMISTRY METHOD 10/15/2024 10:10 PM EST [facility] Potassium 4.4 3.5 - 5.5 mmol/L LAB CHEMISTRY METHOD 10/15/2024 10:10 PM [facility] Chloride 108 96 - 110 mmol/L LAB CHEMISTRY METHOD 10/15/2024 10:10 PM [facility] CO2 25 21 - 32 mmol/L LAB CHEMISTRY METHOD 10/15/2024 10:10 PM [facility] Anion Gap 7 3 - 11 LAB CHEMISTRY METHOD 10/15/2024 10:10 PM [facility] Glucose 114(H) 70 - 100 mg/dL LAB CHEMISTRY METHOD 10/15/2024 10:10 PM [facility] BUN 33(H) 5 - 25 mg/dL LAB CHEMISTRY METHOD 10/15/2024 10:10 PM [facility] Creatinine 1.70(H) 0.70 - 1.30 mg/dL LAB CHEMISTRY METHOD 10/15/2024 10:10 PM [facility] eGFR 45(L) >=60 mL/min/1. 73m2 LAB CHEMISTRY METHOD 10/15/2024 10:10 PM [facility] Comment:Calculation based on the??Chronic Kidney Disease Epidemiology Collaboration (CKD-EPI) equation refit??without adjustment for race. BUN/Creatinine Ratio 19.4 LAB CHEMISTRY METHOD 10/15/2024 10:10 PM [facility] Calcium 8.6 8.5 - 10.5 mg/dL LAB CHEMISTRY METHOD 10/15/2024 10:10 PM [facility] AST (SGOT) 24 10 - 42 unit/L LAB CHEMISTRY METHOD 10/15/2024 10:10 PM [facility] ALT (SGPT) 30 10 - 60 unit/L LAB CHEMISTRY METHOD 10/15/2024 10:10 PM [facility] Alkaline Phosphatase 83 42 - 121 unit/L LAB CHEMISTRY METHOD 10/15/2024 10:10 PM [facility] Total Protein 7.1 6.0 - 8.0 g/dL LAB CHEMISTRY METHOD 10/15/2024 10:10 PM [facility] Albumin 3.5 3.2 - 5.0 g/dL LAB CHEMISTRY METHOD 10/15/2024 10:10 PM [facility] Total Bilirubin 0.3 0.0 - 1.4 mg/dL LAB CHEMISTRY METHOD 10/15/2024 10:10 PM [facility] Blood Venous blood specimen / Unknown Venipuncture / Unknown 10/15/2024 10:37 AM EST 10/15/2024 10:37 AM EST us Vishal PATTON LAB BLOOD ORDERABLES Final Resu lt [facility] [address] [place] [address], * Debridement Diabetic Ulcer Left;Plantar Heel (10/13/2024 11:00 AM EST) Narrative Winston Collins MD - 10/13/2024 11:00 AM EST POOJA Conley ? 10/13/2024 12:29 PM Debridement Diabetic Ulcer Left;Plantar Heel Performed by: POOJA Conley Authorized by: POOJA Conley ?? Associated wounds: Wound Diabetic Ulcer 08/03/24 Heel Left;Plantar Consent: ??Consent obtained: ??Verbal ??Consent given by: ??Patient ??Risks discussed: Yes ?? Time out: Immediately prior to the procedure a time out was called ?? Debridement Details: ??Performed by: ??PA ??Type: surgical ?Level: muscle ?Pain control: ??Lidocaine 4% ??Pain control administration: topical anesthesia ?Severity of Tissue Pre Debridement: ??Muscle involvement without necrosis ??Severity of Tissue Post Debridement: ??Muscle involvement without necrosis ??Time taken: ??10/13/2024 11:24 AM ??Length (cm): ??11.8 ??Width (cm): ??6.4 ??Depth (cm): ??1.7 ??Area (cm^2): ??75.52 ??Time taken: ??10/13/2024 11:25 AM ??Length (cm): ??11.8 ??Width (cm): ??6.4 ??Depth (cm): ??1.7 ??Percent Debrided (%): ??75 ??Surface Area (cm^2): ??75.52 ??Area Debrided (cm^2): ??56.64 ??Volume (cm^3): ??128.38 ??Tissue and other material debrided: dermis, epidermis, muscle and subcutaneous tissue ?Instrument: ??Curette, forceps and blade ??Amount of bleeding: none ?Hemostasis obtained with: ??Not applicable ??Procedural pain: ??0 ??Post-procedural pain: ??1 ??Response to treatment: ??Procedure was tolerated well us Roberto PATTON IN CLINIC/BEDSIDE ORDERABLE S Final Result * Debridement Diabetic Ulcer Right;Proximal;Plantar Foot (10/13/2024 11:00 AM EST) Narrative Winston Collins MD - 10/13/2024 11:00 AM EST POOJA Conley ? 10/13/2024 12:29 PM Debridement Diabetic Ulcer Right;Proximal;Plantar Foot Performed by: POOJA Conley Authorized by: POOJA Conley ?? Associated wounds: Wound Diabetic Ulcer 10/06/24 Foot Right;Proximal;Plantar Consent: ??Consent obtained: ??Verbal ??Consent given by: ??Patient ??Risks discussed: Yes ?? Time out: Immediately prior to the procedure a time out was called ?? Debridement Details: ??Performed by: ??PA ??Type: surgical ?Level: subcutaneous tissue ?Pain control: ??Lidocaine 4% ??Severity of Tissue Pre Debridement: ??Fat layer exposed ??Severity of Tissue Post Debridement: ??Fat layer exposed ??Time taken: ??10/13/2024 11:22 AM ??Length (cm): ??1.6 ??Width (cm): ??1.2 ??Depth (cm): ??0.2 ??Area (cm^2): ??1.92 ??Time taken: ??10/13/2024 11:23 AM ??Length (cm): ??1.6 ??Width (cm): ??1.2 ??Depth (cm): ??0.2 ??Percent Debrided (%): ??100 ??Surface Area (cm^2): ??1.92 ??Area Debrided (cm^2): ??1.92 ??Volume (cm^3): ??0.38 ??Tissue and other material debrided: dermis, epidermis and subcutaneous tissue ?Devitalized tissue debrided: biofilm, callus, exudate, fibrin, necrotic debris and slough ?Instrument: ??Curette ??Amount of bleeding: none ?Hemostasis obtained with: ??Not applicable ??Procedural pain: ??0 ??Post-procedural pain: ??0 ??Response to treatment: ??Procedure was tolerated well us Roberto PATTON IN CLINIC/BEDSIDE ORDERABLE S Final Result * Debridement Diabetic Ulcer Right;Plantar Foot (1st met, TMA hx) (10/13/2024 11:00 AM EST) Narrative Winston Collins MD - 10/13/2024 11:00 AM EST POOJA Conley ? 10/13/2024 12:29 PM Debridement Diabetic Ulcer Right;Plantar Foot (1st met, TMA hx) Performed by: POOJA Conley Authorized by: POOJA Conley ?? Associated wounds: Wound Diabetic Ulcer 03/02/24 Foot Right;Plantar Consent: ??Consent obtained: ??Verbal ??Consent given by: ??Patient ??Risks discussed: Yes ?? Time out: Immediately prior to the procedure a time out was called ?? Debridement Details: ??Performed by: ??PA ??Type: surgical ?Level: subcutaneous tissue ?Pain control: ??Lidocaine 4% ??Severity of Tissue Pre Debridement: ??Fat layer exposed ??Severity of Tissue Post Debridement: ??Fat layer exposed ??Time taken: ??10/13/2024 11:23 AM ??Length (cm): ??0.4 ??Width (cm): ??0.2 ??Depth (cm): ??0.3 ??Area (cm^2): ??0.08 ??Time taken: ??10/13/2024 11:24 AM ??Length (cm): ??0.4 ??Width (cm): ??0.2 ??Depth (cm): ??0.3 ??Percent Debrided (%): ??100 ??Surface Area (cm^2): ??0.08 ??Area Debrided (cm^2): ??0.08 ??Volume (cm^3): ??0.02 ??Tissue and other material debrided: subcutaneous tissue ?Devitalized tissue debrided: biofilm, callus and slough ?Instrument: ??Curette, forceps and blade ??Amount of bleeding: none ?Hemostasis obtained with: ??Not applicable ??Procedural pain: ??0 ??Post-procedural pain: ??0 ??Response to treatment: ??Procedure was tolerated well us Roberto PATTON IN CLINIC/BEDSIDE ORDERABLE S Final Result * Debridement Pressure Injury Left Pretibial (10/13/2024 11:00 AM EST) Narrative Winston Collins MD - 10/13/2024 11:00 AM EST POOJA Conley ? 10/13/2024 12:29 PM Debridement Pressure Injury Left Pretibial Performed by: POOJA Conley Authorized by: POOJA Conley ?? Associated wounds: Wound Pressure Injury 10/06/24 Pretibial Left Consent: ??Consent obtained: ??Verbal ??Consent given by: ??Patient ??Risks discussed: Yes ?? Time out: Immediately prior to the procedure a time out was called ?? Debridement Details: ??Performed by: ??PA ??Type: selective ?Pain control: ??Lidocaine 5% ??Severity of Tissue Pre Debridement: ??Limited to breakdown of skin ??Severity of Tissue Post Debridement: ??Limited to breakdown of skin ??Time taken: ??10/13/2024 11:18 AM ??Length (cm): ??1 ??Width (cm): ??1.5 ??Depth (cm): ??0.1 ??Area (cm^2): ??1.5 ??Time taken: ??10/13/2024 11:19 AM ??Length (cm): ??1 ??Width (cm): ??1.5 ??Depth (cm): ??0.1 ??Percent Debrided (%): ??100 ??Surface Area (cm^2): ??1.5 ??Area Debrided (cm^2): ??1.5 ??Volume (cm^3): ??0.15 ??Tissue and other material debrided: dermis and epidermis ?Instrument: ??Curette ??Amount of bleeding: none ?Hemostasis obtained with: ??Not applicable ??Procedural pain: ??Insensate ??Post-procedural pain: ??Insensate ??Response to treatment: ??Procedure was tolerated well us Roberto PATTON IN CLINIC/BEDSIDE ORDERABLE S Final Result * (ABNORMAL) Thyroid stimulating hormone with reflex to free t4 and free t3 (10/11/2024 11:22 AM EST) TSH 6.16(H) 0.40 - 4.00 mcIU/mL LAB CHEMISTRY METHOD 10/11/2024 5:30 PM EST [facility] Blood Venous blood specimen / Unknown Venipuncture / Unknown 10/11/2024 11:22 AM EST 10/11/2024 11:22 AM EST us Vitaliy Fields MD LAB BLOOD ORDERABLES Fi nal Result Performing Organization Address [facility]/ZIP Co de Phone Number [facility] [address] [place] [address], * Free thyroxine with reflex to free triiodothyronine (10/11/2024 11:22 AM EST) Pathologist [facility] Free T4 0.86 0.70 - 1.80 ng/dL LAB CHEMISTRY METHOD 10/11/2024 5:55 PM [facility] Blood Venous blood specimen / Unknown Venipuncture / Unknown 10/11/2024 11:22 AM EST 10/11/2024 11:22 AM EST Vitaliy Fields MD LAB BLOOD ORDERABLES Fi nal Result Performing Organization Address [facility]/ZIP Co de Phone Number [facility] [address] [place] [address], * (ABNORMAL) Complete blood count (10/11/2024 11:22 AM EST) Pathologist [facility] WBC 7.6 4.8 - 10.8 K/mcL LAB HEMETOLOGY METHOD 10/11/2024 2:12 PM [facility] RBC 2.90(L) 4.50 - 5.50 M/mcL LAB HEMETOLOGY METHOD 10/11/2024 2:12 PM [facility] Hemoglobin 8.9(L) 13.5 - 17.5 g/dL LAB HEMETOLOGY METHOD 10/11/2024 2:12 PM [facility] Hematocrit 29.2(L) 42.0 - 54.0 % LAB HEMETOLOGY METHOD 10/11/2024 2:12 PM [facility] MCV 101.0(H) 79.0 - 98.0 FL LAB HEMETOLOGY METHOD 10/11/2024 2:12 PM [facility] MCH 30.8 27.0 - 32.0 pcg LAB HEMETOLOGY METHOD 10/11/2024 2:12 PM EST [facility] MCHC 30.5(L) 32.0 - 37.0 g/dL LAB HEMETOLOGY METHOD 10/11/2024 2:12 PM EST [facility] RDW 14.8 11.0 - 15.0 % LAB HEMETOLOGY METHOD 10/11/2024 2:12 PM EST [facility] Platelets 309 130 - 400 K/mcL LAB HEMETOLOGY METHOD 10/11/2024 2:12 PM [facility] MPV 10.0 7.0 - 11.0 FL LAB HEMETOLOGY METHOD 10/11/2024 2:12 PM EST [facility] NRBC 0.0 <1.0 % LAB HEMETOLOGY METHOD 10/11/2024 2:12 PM EST [facility] NRBC Absolute 0.00 <0.10 K/mcL LAB HEMETOLOGY METHOD 10/11/2024 2:12 PM EST [facility] Blood Venous blood specimen / Unknown Venipuncture / Unknown 10/11/2024 11:22 AM EST 10/11/2024 11:22 AM EST us Lee Fabian MD LAB BLOOD ORDERABLES Final Res ult [facility] [address] [place] [address], * (ABNORMAL) Triiodothyronine free (10/11/2024 11:22 AM EST) T3, Free 225(L) 230 - 420 pcg/dL LAB CHEMISTRY METHOD 10/11/2024 6:20 PM EST [facility] Blood Venous blood specimen / Unknown Venipuncture / Unknown 10/11/2024 11:22 AM EST 10/11/2024 11:22 AM EST us Vitaliy Fields MD LAB BLOOD ORDERABLES Fi nal Result [facility] [address] [place] [address], * (ABNORMAL) Basic metabolic panel (10/11/2024 11:22 AM EST) Only the most recent of2 resultswithin the time period is included. Sodium 137 133 - 145 mmol/L LAB CHEMISTRY METHOD 10/11/2024 5:19 PM [facility] Potassium 5.0 3.5 - 5.5 mmol/L LAB CHEMISTRY METHOD 10/11/2024 5:19 PM [facility] Chloride 105 96 - 110 mmol/L LAB CHEMISTRY METHOD 10/11/2024 5:19 PM [facility] CO2 24 21 - 32 mmol/L LAB CHEMISTRY METHOD 10/11/2024 5:19 PM [facility] Anion Gap 8 3 - 11 LAB CHEMISTRY METHOD 10/11/2024 5:19 PM [facility] Glucose 87 70 - 100 mg/dL LAB CHEMISTRY METHOD 10/11/2024 5:19 PM [facility] BUN 34(H) 5 - 25 mg/dL LAB CHEMISTRY METHOD 10/11/2024 5:19 PM [facility] Creatinine 1.87(H) 0.70 - 1.30 mg/dL LAB CHEMISTRY METHOD 10/11/2024 5:19 PM [facility] eGFR 40(L) >=60 mL/min/1. 73m2 LAB CHEMISTRY METHOD 10/11/2024 5:19 PM [facility] Comment:Calculation based on the??Chronic Kidney Disease Epidemiology Collaboration (CKD-EPI) equation refit??without adjustment for race. BUN/Creatinine Ratio 18.2 LAB CHEMISTRY METHOD 10/11/2024 5:19 PM [facility] Calcium 8.6 8.5 - 10.5 mg/dL LAB CHEMISTRY METHOD 10/11/2024 5:19 PM EST [facility] Blood Venous blood specimen / Unknown Venipuncture / Unknown 10/11/2024 11:22 AM EST 10/11/2024 11:22 AM EST us Lee Fabian MD LAB BLOOD ORDERABLES Final Res ult [facility] [address] [place] [address], * Debridement Diabetic Ulcer Left;Plantar Heel (10/06/2024 11:00 AM EST) Narrative Winston Collins MD - 10/06/2024 11:00 AM EST POOJA Conley ? 10/08/2024 ??2:21 PM Debridement Diabetic Ulcer Left;Plantar Heel Performed by: POOJA Conley Authorized by: POOJA Conley ?? Associated wounds: Wound Diabetic Ulcer 08/03/24 Heel Left;Plantar Consent: ??Consent obtained: ??Verbal ??Consent given by: ??Patient ??Risks discussed: Yes ?? Time out: Immediately prior to the procedure a time out was called ?? Debridement Details: ??Performed by: ??PA ??Type: selective ?Pain control: ??Lidocaine 4% ??Pain control administration: topical anesthesia ?Severity of Tissue Pre Debridement: ??Muscle involvement without necrosis ??Severity of Tissue Post Debridement: ??Muscle involvement without necrosis ??Length (cm): ??11.8 ??Width (cm): ??6 ??Depth (cm): ??1.4 ??Area (cm^2): ??70.8 ??Length (cm): ??11.8 ??Width (cm): ??6 ??Depth (cm): ??1.4 ??Percent Debrided (%): ??75 ??Surface Area (cm^2): ??70.8 ??Area Debrided (cm^2): ??53.1 ??Volume (cm^3): ??99.12 ??Tissue and other material debrided: dermis, epidermis, hypergranulation, muscle and subcutaneous tissue ?Devitalized tissue debrided: biofilm and slough ?Instrument: ??Curette, forceps and blade ??Amount of bleeding: none ?Hemostasis obtained with: ??Not applicable ??Procedural pain: ??0 ??Post-procedural pain: ??0 ??Response to treatment: ??Procedure was tolerated well us Roberto PATTON IN CLINIC/BEDSIDE ORDERABLE S Final Result * Debridement Pressure Injury Left Pretibial (10/06/2024 11:00 AM EST) Narrative Winston Collins MD - 10/06/2024 11:00 AM EST POOJA Conley ? 10/08/2024 ??2:21 PM Debridement Pressure Injury Left Pretibial Performed by: POOJA Conley Authorized by: POOJA Conley ?? Associated wounds: Wound Pressure Injury 10/06/24 Pretibial Left Consent: ??Consent obtained: ??Verbal ??Consent given by: ??Patient ??Risks discussed: Yes ?? Time out: Immediately prior to the procedure a time out was called ?? Debridement Details: ??Performed by: ??PA ??Type: selective ?Pain control: ??Lidocaine 4% ??Severity of Tissue Pre Debridement: ??Limited to breakdown of skin ??Severity of Tissue Post Debridement: ??Limited to breakdown of skin ??Length (cm): ??2.1 ??Width (cm): ??1.5 ??Depth (cm): ??0.1 ??Area (cm^2): ??3.15 ??Length (cm): ??2.1 ??Width (cm): ??1.5 ??Depth (cm): ??0.1 ??Percent Debrided (%): ??100 ??Surface Area (cm^2): ??3.15 ??Area Debrided (cm^2): ??3.15 ??Volume (cm^3): ??0.32 ??Tissue and other material debrided: dermis and epidermis ?Devitalized tissue debrided: biofilm and slough ?Instrument: ??Curette ??Amount of bleeding: none ?Hemostasis obtained with: ??Not applicable ??Procedural pain: ??0 ??Post-procedural pain: ??0 ??Response to treatment: ??Procedure was tolerated well us Roberto PATTON IN CLINIC/BEDSIDE ORDERABLE S Final Result * Debridement Diabetic Ulcer Right;Proximal;Plantar Foot (10/06/2024 11:00 AM EST) Narrative Winston Collins MD - 10/06/2024 11:00 AM EST POOJA Conley ? 10/08/2024 ??2:21 PM Debridement Diabetic Ulcer Right;Proximal;Plantar Foot Performed by: POOJA Conley Authorized by: POOJA Conley ?? Associated wounds: Wound Diabetic Ulcer 10/06/24 Foot Right;Proximal;Plantar Consent: ??Consent obtained: ??Verbal ??Consent given by: ??Patient ??Risks discussed: Yes ?? Time out: Immediately prior to the procedure a time out was called ?? Debridement Details: ??Performed by: ??PA ??Type: selective ?Pain control: ??Lidocaine 4% ??Severity of Tissue Pre Debridement: ??Fat layer exposed ??Severity of Tissue Post Debridement: ??Fat layer exposed ??Length (cm): ??1.4 ??Width (cm): ??0.9 ??Depth (cm): ??0.3 ??Area (cm^2): ??1.26 ??Length (cm): ??1.4 ??Width (cm): ??0.9 ??Depth (cm): ??0.3 ??Percent Debrided (%): ??100 ??Surface Area (cm^2): ??1.26 ??Area Debrided (cm^2): ??1.26 ??Volume (cm^3): ??0.38 ??Tissue and other material debrided: dermis, epidermis and subcutaneous tissue ?Devitalized tissue debrided: biofilm and slough ?Instrument: ??Curette, blade and forceps ??Amount of bleeding: small ?Hemostasis obtained with: ??Silver nitrate ??Procedural pain: ??0 ??Post-procedural pain: ??0 ??Response to treatment: ??Procedure was tolerated well us Roberto PATTON IN CLINIC/BEDSIDE ORDERABLE S Final Result * Debridement Diabetic Ulcer Right;Plantar Foot (1st met, TMA hx) (10/06/2024 11:00 AM EST) Narrative Winston Collins MD - 10/06/2024 11:00 AM EST POOJA Conley ? 10/08/2024 ??2:21 PM Debridement Diabetic Ulcer Right;Plantar Foot (1st met, TMA hx) Performed by: POOJA Conley Authorized by: POOJA Conley ?? Associated wounds: Wound Diabetic Ulcer 03/02/24 Foot Right;Plantar Consent: ??Consent obtained: ??Verbal ??Consent given by: ??Patient ??Risks discussed: Yes ?? Time out: Immediately prior to the procedure a time out was called ?? Debridement Details: ??Performed by: ??PA ??Type: selective ?Pain control: ??Lidocaine 4% ??Severity of Tissue Pre Debridement: ??Fat layer exposed ??Severity of Tissue Post Debridement: ??Fat layer exposed ??Length (cm): ??0.4 ??Width (cm): ??0.4 ??Depth (cm): ??0.2 ??Area (cm^2): ??0.16 ??Length (cm): ??0.4 ??Width (cm): ??0.4 ??Depth (cm): ??0.2 ??Percent Debrided (%): ??100 ??Surface Area (cm^2): ??0.16 ??Area Debrided (cm^2): ??0.16 ??Volume (cm^3): ??0.03 ??Tissue and other material debrided: dermis, epidermis and subcutaneous tissue ?Devitalized tissue debrided: biofilm, callus and slough ?Instrument: ??Curette, blade and forceps ??Amount of bleeding: none ?Hemostasis obtained with: ??Not applicable ??Procedural pain: ??0 ??Post-procedural pain: ??0 ??Response to treatment: ??Procedure was tolerated well Roberto PATTON IN CLINIC/BEDSIDE ORDERABLE S Final Result * (ABNORMAL) Lactate, with reflex (09/19/2024 11:49 PM EST) LACTIC ACID 2.8(H) 0.4 - 2.0 mmol/L LAB CHEMISTRY METHOD 09/20/2024 12:34 AM EST [facility] Blood Venous blood specimen / Unknown Venipuncture / Unknown 09/19/2024 11:49 PM EST 09/19/2024 11:57 PM EST David PATTON LAB BLOOD ORDERABLES Final Resul t Performing Organization Address [facility]/ZIP Co de Phone Number [facility] [address] [place] [address], [place] [phone] * (ABNORMAL) Prothrombin time with INR (09/19/2024 11:49 PM EST) Protime 15.4(H) 10.6 - 13.9 sec LAB COAGULATION METHOD 09/20/2024 12:05 AM EST [facility] INR 1.2 LAB COAGULATION METHOD 09/20/2024 12:05 AM [facility] Blood Venous blood specimen / Unknown Venipuncture / Unknown 09/19/2024 11:49 PM EST 09/19/2024 11:57 PM EST David PATTON LAB BLOOD ORDERABLES Final Resul t Performing Organization Address [facility]/ZIP Co de Phone Number [facility] [address] [place] [address], [place] [phone] * Lipid panel with reflex to direct LDL (08/20/2024 6:25 AM EST) Cholesterol 123 0 - 200 mg/dL LAB CHEMISTRY METHOD 08/20/2024 7:39 AM EST [facility] Triglycerides 102 0 - 150 mg/dL LAB CHEMISTRY METHOD 08/20/2024 7:39 AM EST [facility] HDL 53 >=40 mg/dL LAB CHEMISTRY METHOD 08/20/2024 7:39 AM [facility] LDL Calculated 50 0 - 100 mg/dL LAB CHEMISTRY METHOD 08/20/2024 7:39 AM [facility] VLDL Cholesterol Linus 20.4 mg/dL LAB CHEMISTRY METHOD 08/20/2024 7:39 AM [facility] Non HDL Chol. (LDL+VLDL) 70 <145 mg/dL LAB CHEMISTRY METHOD 08/20/2024 7:39 AM [facility] Chol/HDL Ratio 2.3 0.0 - 4.4 LAB CHEMISTRY METHOD 08/20/2024 7:39 AM [facility] Blood Venous blood specimen / Unknown Venipuncture / Unknown 08/20/2024 6:25 AM EST 08/20/2024 7:03 AM EST Jefferson Rendon MD LAB BLOOD ORDERABLES Final Resu lt [facility] [address] [place] [address], * (ABNORMAL) Hemoglobin A1c (07/22/2024) Pathologist [facility] Hemoglobin A1C 8.7(A) <=6.5 % Blood Venous blood specimen / Unknown Historical Provider LAB BLOOD ORDERABLES Dalila l Result * Urine Albumin Creatinine Ratio (04/14/2024) [facility]ologist [facility] Urine Albumin Creatinine Ratio Abstracted Historical Provider HEALTH MAINTENANCE Final Result * Diabetes Eye Exam (03/17/2024) Pathologist [facility] Diabetes: Annual Retina Eye Exam Abstracted Historical Provider HEALTH MAINTENANCE Final Result * Colonoscopy (05/12/2023) Colonoscopy No Interpretation , Abstracted Anatomical Region Laterality Modality Other Historical Provider HEALTH MAINTENANCE Final Result * Hepatitis C Screening (12/24/2017) Hepatitis C Screening Abstracted [facility] Provider HEALTH MAINTENANCE Final Result from Last 3 Months or Most Recently Relevant to Health Maintenance Additional Health Concerns Active Problems Noted Date Diagnosed Date Impaired Tissue 08/10/2024 Education needed on impact of smoking on wound 1 10/10/2023 Education needed related to ulceration/compromised skin integrity. 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 Health Care Decision (hx) 02/14/2018 AD HAYES DIRECTIVE Health Care Decision (hx) 02/14/2018 AD HAYES DIRECTIVE Health Care Decision (hx) 02/14/2018 AD HAYES DIRECTIVE Health Care Decision (hx) 02/14/2018 AD HAYES DIRECTIVE Health Care Decision (hx) 02/14/2018 AD HAYES DIRECTIVE Health Care Decision (hx) 02/14/2018 AD HAYES DIRECTIVE Health Care Decision (hx) 02/14/2018 AD HAYES DIRECTIVE Health Care Decision (hx) 02/14/2018 AD HAYES DIRECTIVE Health Care Decision (hx) 02/14/2018 AD HAYES DIRECTIVE Health Care Decision (hx) 02/14/2018 AD HAYES DIRECTIVE Health Care Decision (hx) 02/14/2018 AD HAYES DIRECTIVE Health Care Decision (hx) 02/14/2018 AD HAYES DIRECTIVE Health Care Decision (hx) 02/14/2018 AD HAYES DIRECTIVE Health Care Decision (hx) 02/14/2018 AD HAYES DIRECTIVE Health Care Decision (hx) 02/14/2018 AD HAYES DIRECTIVE Health Care Decision (hx) 02/14/2018 AD HAYES DIRECTIVE Health Care Decision (hx) 02/14/2018 AD HAYES DIRECTIVE Health Care Decision (hx) 02/14/2018 AD HAYES DIRECTIVE Health Care Decision (hx) 02/14/2018 AD HAYES DIRECTIVE Health Care Decision (hx) 02/14/2018 AD HAYES DIRECTIVE Health Care Decision (hx) 02/14/2018 AD HAYES DIRECTIVE Health Care Decision (hx) 02/14/2018 AD HAYES DIRECTIVE Health Care Decision (hx) 02/14/2018 AD HAYES DIRECTIVE Health Care Decision (hx) 02/14/2018 AD HAYES DIRECTIVE * Full Code - Default (Latest Code Status on File) Date Activated Date Inactivated Comments 08/20/2024 6:27 PM 08/31/2024 3:12 PM This is ord er is used when code status has not been discussed with the patient, or code status is otherwise unknown/unconfirmed To update the patient's code status, place a code status order. Do not modify or discontinue any currently active code status orders. * Full Code - Confirmed Date Activated Date Inactivated Comments 08/17/2024 8:02 PM 08/20/2024 6:27 PM This code status was ascertained in the following way: Code status discussion: discussion with patient To update the patient's code status, place a code status order. Do not modify or discontinue any currently active code status orders. * Full Code - Default Date Activated Date Inactivated Comments 08/17/2024 5:41 PM 08/17/2024 8:02 PM This is or wayne is used when code status has not been discussed with the patient, or code status is otherwise unknown/unconfirmed To update the patient's code status, place a code status order. Do not modify or discontinue any currently active code status orders. Care Teams Marinator Relationship Specialty Start Date End Date Lee Fabian MD [address] [place] [address] PCP - General Internal Medicine 08/03/24
--- OUTSIDE RECORDS SUMMARY | 2024-12-02 10:34 | XMS_ITS ---
Care Plan Created on: December 02, 2024 Luca Crowe : 1960 Sex: Male Author Organization [facility] Address [address] [place] [address] Phone Care Team Providers Care Sustainability Analyst Name Role Phone Lee Fabian MD Primary Care Provider [phone] Active Problems Problem Noted Date Diagnosed Date [...] Type 2 diabetes mellitus with foot ulcer 024 Non-pressure chronic ulcer o f other part of right foot with fat layer exposed 08/02/2024 Charcot's joint, right ankle and foot 08/02/2024 Corns and callosities 08/02/2024 Essential (primary) hypertension 08/02/2024 Peripheral vascular disease, unspecified Type 2 diabetes mellitus wit h diabetic peripheral angiopathy without gangrene 08/02/2024 Complete atrioventricular block 05/30/2024 Chronic diastolic heart failure 04/28/2024 Atypical atrial flutter 10/19/2015 Additional Health Concerns Active Problems Noted Date Diagnosed Date Impaired Tissue 08/10/2024 Education needed on impact of smoking on wound 1 10/10/2023 Education needed related to ulceration/compromised skin integrity. 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 Goals Goal Patient Goal Type Associated Problems [...] needed on impact of smoking on wound Suasn Allison RN Patient and Caregiver Understand Wound Care Education Care Plan Education needed related to ulceration/compr omised skin integrity. Susan Allison RN Interventions Care Plan Interventions Intervention Entry Date Outcome Provide caregiver with wound care procedure information 08/10/2024 Educate caregiver on proper wound care procedures 08/10/2024 Give provider list of wound care supplies 08/10/2024 Refill wound care supplies 08/10/2024 Send Wound Care Supplies 08/10/2024 Give provider list of wound care supplies 08/10/2024 Refill wound care supplies 08/10/2024 Send Wound Care Supplies 08/10/2024 Provide caregiver with wound care procedure information 08/10/2024 Educate caregiver on proper wound care procedures 08/10/2024 Document patient eligibility for HBO 08/10/2024 Assess patient for HBO treatment 08/10/2024 Record wound depth 08/10/2024 Record total wound area 08/10/2024 Measure wound progress 08/10/2024 Create an action plan identifying patient strengths and supports 08/10/2024 Establish quit date with patient 08/10/2024 Discuss prior cessation attempts 08/10/2024 Discuss preferred method of cessation and plan 08/10/2024 Discuss barriers to smoking cessation 08/10/2024 Discuss smoking status with patient 08/10/2024 Create an action plan identifying patient strengths and supports 08/10/2024 Establish quit date with patient 08/10/2024 Discuss prior cessation attempts 08/10/2024 Discuss preferred method of cessation and plan 08/10/2024 Discuss barriers to smoking cessation 08/10/2024 Discuss smoking status with patient 08/10/2024 Provide caregiver with wound care procedure information 08/10/2024 Educate caregiver on proper wound care procedures 08/10/2024 Document patient eligibility for HBO 08/10/2024 Assess patient for HBO treatment 08/10/2024 Record wound depth 08/10/2024 Record total wound area 08/10/2024 Measure wound progress 08/10/2024 Provide caregiver with wound care procedure information 08/10/2024 Educate caregiver on proper wound care procedures 08/10/2024 Document patient eligibility for HBO 08/10/2024 Assess patient for HBO treatment 08/10/2024 Record wound depth 08/10/2024 Record total wound area 08/10/2024 Measure wound progress 08/10/2024 Provide caregiver with wound care procedure information 08/10/2024 Educate caregiver on proper wound care procedures 08/10/2024 Document patient eligibility for HBO 08/10/2024 Assess patient for HBO treatment 08/10/2024 Record wound depth 08/10/2024 Record total wound area 08/10/2024 Measure wound progress 08/10/2024 Provide caregiver with wound care procedure information 08/10/2024 Educate caregiver on proper wound care procedures 08/10/2024 Give provider list of wound care supplies 08/10/2024 Give provider list of wound care supplies 08/10/2024 Refill wound care supplies 08/10/2024 Provide caregiver with wound care procedure information 08/10/2024 Educate caregiver on proper wound care procedures 08/10/2024 Document patient eligibility for HBO 08/10/2024 Assess patient for HBO treatment 08/10/2024 Record wound depth 08/10/2024 Record total wound area 08/10/2024 Measure wound progress 08/10/2024 Related Goals and Interventions Goal Associated Intervent ions Decrease Wound Volume by X% by date (in notes) Give provider list of wound care supplie s; Refill wound care supplies; Provide caregiver with wound care procedure information; Educate caregiver on proper wound care procedures; Document patient eligibility for HBO; Assess patient for HBO treatment; Record wound depth; Record total wound area; Measure wound progress Patient and Caregiver Unders tand Wound Care Education Provide caregiver with wound care proced ure information; Educate caregiver on proper wound care procedures; Give provider list of wound care supplies Wound volume breakdown reduc ed by X% by week 4 Provide caregiver with wound care proced ure information; Educate caregiver on proper wound care procedures; Document patient eligibility for HBO; Assess patient for HBO treatment; Record wound depth; Record total wound area; Measure wound progress Wound volume breakdown reduc ed by X% by week 8 Provide caregiver with wound care proced ure information; Educate caregiver on proper wound care procedures; Document patient eligibility for HBO; Assess patient for HBO treatment; Record wound depth; Record total wound area; Measure wound progress Wound volume breakdown reduc ed by X% by week 12 Provide caregiver with wound care proced ure information; Educate caregiver on proper wound care procedures; Document patient eligibility for HBO; Assess patient for HBO treatment; Record wound depth; Record total wound area; Measure wound progress Quit using tobacco (cigarett es, smokeless, etc) Create an action plan identifying patien t strengths and supports; Establish quit date with patient; Discuss prior cessation attempts; Discuss preferred method of cessation and plan; Discuss barriers to smoking cessation; Discuss smoking status with patient Reduce tobacco use (cigarett es, smokeless, etc) Create an action plan identifying patien t strengths and supports; Establish quit date with patient; Discuss prior cessation attempts; Discuss preferred method of cessation and plan; Discuss barriers to smoking cessation; Discuss smoking status with patient Decrease Wound Volume by X% by date (in notes) Give provider list of wound care supplie s; Refill wound care supplies; Send Wound Care Supplies; Provide caregiver with wound care procedure information; Educate caregiver on proper wound care procedures; Document patient eligibility for HBO; Assess patient for HBO treatment; Record wound depth; Record total wound area; Measure wound progress Patient and Caregiver Unders tand Wound Care Education Provide caregiver with wound care proced ure information; Educate caregiver on proper wound care procedures; Give provider list of wound care supplies; Refill wound care supplies; Send Wound Care Supplies
--- OUTSIDE RECORDS SUMMARY | 2024-12-02 10:35 | XMS_ITS | Encounter Summary ---
Author Organization [facility] Address [address] [place] [address] Care Team Providers Care Rapid Transit Operator Name Role Phone Lee Fabian MD Primary Care Provider [phone] Vitaliy Fields MD Unavailable Dallas Camejo MD Unavailable Rolando Lopez MD Unavailable Cesar Fair MD Unavailable [phone] Daisy Her PT Unavailable Encounter Details Date Type Department Care Team (Late st Contact Info) Description 09/17/2024 Documentation [facility] [address] [place] [address] Dallas Camejo MD [address] [place] [address] Social History Tobacco Use Types Packs/Day Years Used Date Smoking Tobacco: Former Cigarettes 1 29.2 1 977 - 2004 Smokeless Tobacco: Never Alcohol Use Standard Drinks/Week Comments Yes 21 (1 standard drink = 0.6 oz pu re alcohol) [facility] Utilities Answer Date Recorded In the past 12 months has [employer] electric, gas, oil, or water company threatened to shut off services in your home? No 09/10/2024 AUDIT-C Answer Date Recorded Q1: How often do you have a drink containing alcohol? 4 or more times a week 09/02/2024 Q2: How many drinks containi ng alcohol do you have on a typical day when you are drinking? 3 or 4 Q3: How often do you have si x or more drinks on one occasion? Never 09/02/2024 Overall Financial Resource Strain (CARDIA) Answe r Date Recorded How hard is it for you to pa y for the very basics like food, housing, medical care, and heating? Not hard at all 09/10/2024 Hunger Vital Sign Answer Date Recorded Within the past 12 months, y ou worried that your food would run out before you got the money to buy more. Never true 09/10/20 24 Within the past 12 months, t he food you bought just didn't last and you didn't have money to get more. Never true 09/10/2024 PRAPARE - Transportation Answer Date Re corded In the past 12 months, has l ack of transportation kept you from medical appointments or from getting medications? No 08/29 In the past 12 months, has l ack of transportation kept you from meetings, work, or from getting things needed for daily living? No 09/10/2024 Housing Stability Vital Sign Answer Marquez e Recorded In the last 12 months, was t here a time when you were not able to pay the mortgage or rent on time? No 09/10/2024 In the past 12 months, how m any times have you moved where you were living? 1 09/10/2024 At any time in the past 12 m [facility], were you homeless or living in a [facility] (including now)? No 09/10/2024 Sex and Gender Information Value Date Recorded Sex Assigned at Male 09/03/2024 12:21 PM EST Gender Identity Male 09/03/2024 12:21 PM EST Sexual Orientation Heterosexual (straight) 09/10 7:58 AM EST documented as of this encounter Plan of Treatment Upcoming Encounters Date Type Department Care Team (Late st Contact Info) Description 12/07/2024 1:30 PM EDT Appointment [facility] Heart & Vascular [place] - Electrophysiology [address] [facility] [place] [address] Gretel Hinds, TATTOO ARTIST [address] [address] 12/14/2024 2:00 PM EDT Office Visit [facility] [address] [address] Dallas Camejo MD [address] [place] [address] 12/16/2024 8:30 AM EDT Office Visit [facility] Infectious Disease [address] [place] [address] Ena Mtz MD [address] [place], [place] [id number] documented as of this encounter Visit Diagnoses Not on filedocumented in this encounter 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/10/24 09/16/2024 09/16/2024 11/24/2024 3:08 P M EST R/O Respiratory Disease 11/07/2024 11/07/202410/30 7:06 AM EST R/O Respiratory Disease 11/23/2024 11/23/202410/31 12:00 PM EST documented as of this encounter Care Teams Rapid Transit Operator Relationship Specialty Start Date End Date Lee Fabian MD [address] [place] [address] PCP - General Internal Medicine 09/02/24 Vitaliy Fields MD [address] [place] [address] Cardiovascular Disease 09/02/24 Dallas Camejo MD [address] [place] [address] Surgery, Orthopedic 09/02/24 Rolando Lopez MD [address] Transplant - Ph [address] [place] [address] Physician Nephrology 09/02/24 Cesar Fair MD 85 [facility] [address] [place] [phone] Surgery, Cardiac 11/08/24 Daisy Her, PT 85 [facility] [address] [place] [phone] Roofer Helper V[employer] CoatingCasing Fluid Tender Medicine and Rehabilitation 11/18/24 documented as of this encounter
--- OUTSIDE RECORDS SUMMARY | 2024-12-02 10:35 | XMS_ITS | Encounter Summary ---
Author Organization [facility] Address [address] [place] [address] Care Team Providers Care Sole Rougher Name Role Phone Lee Fabian MD Primary Care Provider [phone] Vitaliy Fields MD Unavailable [phone] Dallas Camejo MD Unavailable [phone] Rolando Lopez MD Unavailable [phone] Cesar Fair MD Unavailable [phone] Daisy Her PT Unavailable [phone] Encounter Details Date Type Department Care Team (Late st Contact Info) Description 10/19/2024 Scanned Document [facility] [address] [place] [id number] Surjit [address] [address] Social History Tobacco Use Types Packs/Day Years Used Date Smoking Tobacco: Former Cigarettes 1 29.2 1 977 - 2004 Smokeless Tobacco: Never Alcohol Use Standard Drinks/Week Comments Yes 21 (1 standard drink = 0.6 oz pu re alcohol) [facility] Utilities Answer Date Recorded In the past 12 months has [employer], gas, oil, or water [employer] threatened to shut off services in your [...] any time in the past 12 m [facility], were you homeless or living in a halfway (including now)? No 09/10/2024 Sex and Gender Information Value Date Recorded Sex Assigned at Male 09/03/2024 12:21 PM EST Gender Identity Male 09/03/2024 12:21 PM EST Sexual Orientation Heterosexual (straight) 09/10 7:58 AM EST documented as of this encounter Plan of Treatment Upcoming Encounters Date Type Department Care Team (Late st Contact Info) Description 12/07/2024 1:30 PM EDT Appointment [facility] Heart & Vascular [place] - Electrophysiology [address] [place] [address] Gretel Hinds, WIND TECHNICIAN [address] [address] 12/14/2024 2:00 PM EDT Office Visit [facility] [address] [address] Dallas Camejo MD [address] [place] [address] 12/16/2024 8:30 AM EDT Office Visit [facility] Infectious Disease [address] [place] [phone] Ena Mtz MD [address] [place] [phone] documented as of this encounter Visit Diagnoses Not on filedocumented in this encounter 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/10/24 09/16/2024 09/16/2024 11/24/2024 3:08 P M EST R/O Respiratory Disease 11/07/2024 11/07/202410/30 7:06 AM EST R/O Respiratory Disease 11/23/2024 11/23/202410/31 12:00 PM EST documented as of this encounter Care Teams Sole Rougher Relationship Specialty Start Date End Date Lee Fabian MD [address] [place] [address] PCP - General Internal Medicine 09/02/24 Vitaliy Fields MD [address] [place] [address] Cardiovascular Disease 09/02/24 Dallas Camejo MD [address] [place] [address] Surgery, Orthopedic 09/02/24 Rolando Lopez MD [address] Transplant - Ph [address] [place] [address] Physician Nephrology 09/02/24 Cesar Fair MD [address] [phone] Surgery, Cardiac 11/08/24 Daisy Her, PT 85 [facility] [address] [place] [address] Casing InspectorMachine Shop Specialist Medicine and Rehabilitation 11/18/24 documented as of this encounter
--- OUTSIDE RECORDS SUMMARY | 2024-12-02 10:35 | XMS_ITS | Encounter Summary ---
Author Organization [facility] Address [address] [place] [address] Care Team Providers Care Aerospace Project Manager Name Role Phone Lee Fabian MD Primary Care Provider [phone] Vitaliy Fields MD Unavailable [phone] Dallas Camejo MD Unavailable [phone] Rolando Lopez MD Unavailable [phone] Reason for Visit * Reason Comments Follow-up Encounter Details Date Type Department Care Team (Latest Contact Info) Description 11/02/2024 9:15 AM EST Office [place] [facility] [address] Dallas Camejo MD [address] [place] [address] Acute osteomyelitis of left calcaneus (HCC) (Primary Dx) Social History Tobacco Use Types Packs/Day Years Used Date Smoking Tobacco: Former Cigarettes 1 29.2 1 977 - 2004 Smokeless Tobacco: Never Alcohol Use Standard Drinks/Week Comments Yes 21 (1 standard drink = 0.6 oz pu re alcohol) [facility] Utilities Answer Date Recorded In the past 12 months has [employer], gas, oil, or water company threatened to shut off services in your home? No 11/03/2024 AUDIT-C Answer Date Recorded Q1: How often do you have a drink containing alcohol? 4 or more times a week 11/04/2024 Q2: How many drinks containi ng alcohol do you have on a typical day when you are drinking? 1 or 2 Q3: How often do you have si x or more drinks on one occasion? Never 11/04/2024 Overall Financial Resource Strain (CARDIA) Answe r [...] the money to buy more. Never true 11/03/19 25 Within the past 12 months, t he food you bought just didn't last and you didn't have money to get more. Never true 11/03/2024 PRAPARE - Transportation Answer Date Re corded In the past 12 months, has l ack of transportation kept you from medical appointments or from getting medications? No 01/2025 In the past 12 months, has l ack of transportation kept you from meetings, work, or from getting things needed for daily living? No 11/03/2024 Housing Stability Vital Sign Answer Marquez e Recorded In the last 12 months, was t here a time when you were not able to pay the mortgage or rent on time? No 11/03/2024 In the past 12 months, how m any times have you moved where you were living? 0 11/03/2024 At any time in the past 12 m [facility], were you homeless or living in a fci (including now)? No 11/03/2024 Sex and Gender Information Value Date Recorded Sex Assigned at Male 09/03/2024 12:21 PM EST Gender Identity Male 09/03/2024 12:21 PM EST Sexual Orientation Heterosexual (straight) 09/10 7:58 AM EST documented as of this encounter Progress Notes * Ginny Jean - 11/02/2024 9:15 AM EST Images from the original note were not included. [address] [facility] [address] [address] Encounter Date: 11/02/2024 1. Acute osteomyelitis of left calcaneus (HCC) XR Foot 1 view-Left CANCELED: XR Foot 3+ views-Left HISTORY OF PRESENT ILLNESS Patient returns today, 7 weeks postop s/p left lower partial calcanectomy, left lower extremity surgical excisional ulcer debridement with surgical excision of skin, subcutaneous tissue, and tendon with a 15 blade scalpel, and left lower extremity application of wound VAC. He was last seen by me on10/19/24 for 5- week post op visit. Kept leaking through the ABB pads. [facility] Luca is experiencing severe pain and has been using oxycodone frequently tomanage it. He states he is going through oxycodone like candy, normally taking 2 in the morning, 2 in the afternoon, and occasionally in the evening as well. He has 4 more Oxycodone left and is asking for a refill. He reports that the pain is intense, shooting up the leg, and is worsening daily. Denies fevers chills or night sweats. Appetite intact. He describes sensation of tightness like a sunburn. A recent wound culture revealed methicillin-resistant Staphylococcus aureus (MRSA) and Enterococcus, indicating a multi-organism, drug-resistant infection. Luca is concerned about the infect ion spreading and is considering amputation due to the pain and risk of further infection. He has been on broad-spectrum antibiotics but feels they are ineffective against MRSA. Luca is open to hospital admission for IV antibiotics and potential amputation. He reports no fever or systemic illness but notes increased redness and swelling around the wound site. PHYSICAL FINDINGS On exam, he has diffuse lower extremity edema, he has erythema around his partial calcinectomy. He has some mild tenderness to palpation at his popliteal fossa, he has full knee range of motion, no evidence of ascending sepsis. Free from systemic symptoms, no ascending lymphangitis. PLAN Diagnosis is s/p partial calcinectomy for calcaneal osteomyelitis with failure to heal. He has a posterior plantar ulceration. We're going to admit Moshe for IV antibiotics, multi-service consultation, including medicine in an infectious disease, plan for picc line placement and preoperative vancomycin in deference to his multi floral infection. Plan for amputation semi-electively this Friday with close clinical follow-up in the interim. I, Ginny Jean, hereby attest that I have served as a scribe for Dr. Dallsa Camejo, duringthis visit. I understand the importance of accurate and timely documentation in patient care and confirm that all information recorded during the consultation was completed to the best of my ability under the supervision of Dr. Camejo. documented in this encounter Plan of Treatment Upcoming Encounters Date Type Department Care Team (Late st Contact Info) Description 12/07/2024 1:30 PM EDT Appointment [facility] Heart & Vascular [place] - Electrophysiology [address] [facility] [place] [phone] Gretel Hinds, MACHINE CUTTER [address] [address] 12/14/2024 2:00 PM EDT Office Visit Orthopedic [address] [address] Dallas Camejo MD [address] [place] [address] 12/16/2024 8:30 AM EDT Office Visit [facility] Infectious Disease [address] [place] [phone] Ena Mtz MD [address] [place] [address] documented as of this encounter Procedures Procedure Name Priority Date/Time Associated Diagnosis Comments XR FOOT 1 VIEW-LEFT Routine 11/02/2024 9:13 AM EST Acute osteomyelitis of left calcaneus (HCC) documented in this encounter Results * XR Foot 1 view-Left (11/02/2024 9:13 AM EST) Narrative OAH - 11/02/2024 9:13 AM EST This exam was performed in office at [facility] and images reviewed by orthopedic provider. ??Any findings are documented within ambulatory encounter note on date of service. Dallas Camejo MD IMG DIAGNOSTIC IMAGI NG ORDERABLES [facility] documented in this encounter Visit Diagnoses Diagnosis Acute osteomyelitis of left calcaneus (HCC)- Primary documented in this encounter 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/10/24 09/16/2024 09/16/2024 11/24/2024 3:08 P M EST documented as of this encounter Care Teams Aerospace Project Manager Relationship Specialty Start Date End Date Lee Fabian MD [address] [place] [address] PCP - General Internal Medicine 09/02/24 Vitaliy Fields MD [address] [address] Cardiovascular Disease 09/02/24 Dallas Camejo MD 7 [place] [address] Surgery, Orthopedic 09/02/24 Rolando Lopez MD [address] Transplant - Ph 14 [place] [address] Physician Nephrology 09/02/24 documented as of this encounter
--- OUTSIDE RECORDS SUMMARY | 2024-12-02 10:35 | XMS_ITS | Encounter Summary ---
Author Organization [facility] Address [address] [place] [address] Care Team Providers Care Shotgun Shell Reprinting Unit Operator Name Role Phone Lee Fabian MD Primary Care Provider [phone] Vitaliy Fields MD Unavailable Dallas Camejo MD Unavailable [phone] Rolando Lopez MD Unavailable Cesar Fair MD Unavailable Daisy Her PT Unavailable [phone] Reason for Visit * Reason Comments Call Patient Encounter Details Date Type Department Care Team (Late st Contact Info) Description 11/23/2024 Telephone [facility] Infectious Disease [address] [place] [address] Nilton Zepeda MA [address] [address] Call Patient Social History Tobacco Use Types Packs/Day Years Used Date Smoking Tobacco: Former Cigarettes 1 29.2 1 977 - 2003 Smokeless Tobacco: Never Alcohol Use Standard Drinks/Week Comments Yes 21 (1 standard drink = 0.6 oz pu re alcohol) [facility] Utilities Answer Date Recorded In the past 12 months has [employer], [employer], or [employer]) threatened to shut off services in your [...] any time in the past 12 m [facility], were you homeless or living in a correction (including now)? No 11/03/2024 Sex and Gender Information Value Date Recorded Sex Assigned at Male 09/03/2024 12:21 PM EST Gender Identity Male 09/03/2024 12:21 PM EST Sexual Orientation Heterosexual (straight) 09/10 7:58 AM EST documented as of this encounter Miscellaneous Notes * Telephone Encounter - Elizabeth Hammond RN - 11/24/2024 9:16 AM EST Reviewed chart, pt currently admitted to [address] with plans for repeat TATIANNA end of November per Dr. Mtz. There is no HIPAA on file to speak with pt's sister Jessica. Will let her know. * Telephone Encounter - Nilton Zepeda MA - 11/23/2024 3:12 PM EST Patient's sister requesting call back in regards to procedure called TATIANNA that patient is supposedto be getting schedule for. documented in this encounter Plan of Treatment Upcoming Encounters Date Type Department Care Team (Late st Contact Info) Description 12/07/2024 1:30 PM EDT Appointment [facility] Heart & Vascular [place] - Electrophysiology [address] [place] [phone] Gretel Hinds, REFINERY OPERATOR VISBREAKING [address] [address] 12/14/2024 2:00 PM EDT [facility] [address] [place] [address] Dallas Camejo MD [address] [place] [address] 12/16/2024 8:30 AM EDT Office Visit [facility] Infectious Disease [address] [place] [phone] Ena Mtz MD [address] [place], [place] [phone] documented as of this encounter Visit Diagnoses Not on filedocumented in this encounter 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/10/24 09/16/2024 09/16/2024 11/24/2024 3:08 P M EST R/O Respiratory Disease 11/23/2024 11/23/2024 02/2 01/2025 12:00 PM EST documented as of this encounter Care Teams Shotgun Shell Reprinting Unit Operator Relationship Specialty Start Date End Date Lee Fabian MD [address] [place] [address] PCP - General Internal Medicine 09/02/24 Vitaliy Fields MD [address] [place] [address] Cardiovascular Disease 09/02/24 Dallas Camejo MD [address] [place] [address] Surgery, Orthopedic 09/02/24 Rolando Lopez MD 622 [address] Transplant - 14 [place] [address] Physician Nephrology 09/02/24 Cesar Fair MD [address] [phone] Surgery, Cardiac 11/08/24 Daisy Her, PT [address] [address] Production Supervisor Off ShiftSlubber Tender Medicine and Rehabilitation 11/18/24 documented as of this encounter
--- OUTSIDE RECORDS SUMMARY | 2024-12-02 10:35 | XMS_ITS | Encounter Summary ---
Author Organization [facility] Address [address] [place] [address] Care Team Providers Care Assembler Installer Structures Name Role Phone Lee Fabian MD Primary Care Provider [phone] Vitaliy Fields MD Unavailable [phone] Dallas Camejo MD Unavailable [phone] Rolando Lopez MD Unavailable [phone] Cesar Fair MD Unavailable [phone] Daisy Her PT Unavailable [phone] Encounter Details Date Type Department Care Team (Late st Contact Info) Description 10/19/2024 Scanned Document [facility] [address] [place] [address] Surjit [address] [address] Social History Tobacco Use Types Packs/Day Years Used Date Smoking Tobacco: Former Cigarettes 1 29.2 1 977 - 2004 Smokeless Tobacco: Never Alcohol Use Standard Drinks/Week Comments Yes 21 (1 standard drink = 0.6 oz pu re alcohol) [facility] Utilities Answer Date Recorded In the past 12 months has [employer] at work, gas, oil, or water [employer] threatened to shut off services in your [...] any time in the past 12 m [facility], were you homeless or living in a alf (including now)? No 09/10/2024 Sex and Gender Information Value Date Recorded Sex Assigned at Male 09/03/2024 12:21 PM EST Gender Identity Male 09/03/2024 12:21 PM EST Sexual Orientation Heterosexual (straight) 09/10 7:58 AM EST documented as of this encounter Plan of Treatment Upcoming Encounters Date Type Department Care Team (Late st Contact Info) Description 12/07/2024 1:30 PM EDT Appointment [facility] Heart & Vascular [place] - Electrophysiology [address] [place] [address] Gretel Hinds, CREDIT OPERATIONS PROCESSOR [address] [address] 12/14/2024 2:00 PM EDT Office Visit [facility] [place] [address] [address] Dallas Camejo MD 7 [place] [address] 12/16/2024 8:30 AM EDT Office Visit [facility] Infectious Disease [address] [place] [phone] Ena Mtz MD [address] [place] [phone] documented as of this encounter Visit Diagnoses Not on filedocumented in this encounter 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/10/24 09/16/2024 09/16/2024 11/24/2024 3:08 P M EST R/O Respiratory Disease 11/07/2024 11/07/202410/30 7:06 AM EST R/O Respiratory Disease 11/23/2024 11/23/202410/31 12:00 PM EST documented as of this encounter Care Teams Assembler Installer Structures Relationship Specialty Start Date End Date Lee Fabian MD [address] [place] [address] PCP - General Internal Medicine 09/02/24 Vitaliy Fields MD [address] [place] [address] Cardiovascular Disease 09/02/24 Dallas Camejo MD [address] [place] [address] Surgery, Orthopedic 09/02/24 Rolando Lopez MD [address] Transplant - Ph 14 [place] [address] Physician Nephrology 09/02/24 Cesar Fair MD [address] [phone] Surgery, Cardiac 11/08/24 Daisy Her, PT 85 [facility] [address] [place] [address] Learning StrategistElectronic Coils Supervisor Medicine and Rehabilitation 11/18/24 documented as of this encounter
--- OUTSIDE RECORDS SUMMARY | 2024-12-02 10:35 | XMS_ITS | Encounter Summary ---
Author Organization [facility] Address [address] [place] [address] Care Team Providers Care Band Sawmill Operator Name Role Phone Lee Fabian MD Primary Care Provider [phone] Vitaliy Fields MD Unavailable [phone] Dallas Camejo MD Unavailable [phone] Rolando Lopez MD Unavailable [phone] Cesar Fair MD Unavailable [phone] Daisy Her PT Unavailable [phone] Reason for Visit * Reason Comments Appointment Encounter Details Date Type Department Care Team ([facility] st Contact Info) Description 11/19/[address] [phone] Nilton Zepeda MA [address] [phone] Appointment Social History Tobacco Use Types Packs/Day Years Used Date Smoking Tobacco: Former Cigarettes 1 29.2 1 977 - 2004 Smokeless Tobacco: Never Alcohol Use Standard Drinks/Week Comments Yes 21 (1 standard drink = 0.6 oz pu re alcohol) [facility] Utilities Answer Date Recorded In the past 12 months has th e [employer], gas, oil, or water company threatened to [...] any time in the past 12 m [facility], were you homeless or living in a nursing home (including now)? No 11/03/2024 Sex and Gender Information Value Date Recorded Sex Assigned at Male 09/03/2024 12:21 PM EST Gender Identity Male 09/03/2024 12:21 PM EST Sexual Orientation Heterosexual (straight) 09/10 7:58 AM EST documented as of this encounter Miscellaneous Notes * Telephone Encounter - Nilton Zepeda MA - 11/19/2024 3:28 PM EST ----- Message from Collision Repair Technician Nilton Multani MA sent at 11/19/2024 3:28 PM EST ----- Scheduled for 12/16/2024 ??8:30 AM ----- Message ----- From: Ena Mtz MD Sent: 11/19/2024 2:49 PM EST To: [facility] Care Rn Ent Please schedule Hospital follow-up visit - in person In 4 weeks documented in this encounter Plan of Treatment Upcoming Encounters Date Type Department Care Team (Late st Contact Info) Description 12/07/2024 1:30 PM EDT Appointment [facility] Heart & Vascular [place] - Electrophysiology [address] [place] [phone] Gretel Hinds, STERILE PROCESS TECH [address] [phone] 12/14/2024 2:00 PM EDT [facility] Visit [facility] [address] [address] Dallas Camejo MD [address] [place] [address] 12/16/2024 8:30 AM EDT Office Visit [facility] Infectious Disease [address] [place] [phone] Ena Mtz MD 132 [place], [place] [phone] documented as of this encounter Visit Diagnoses Not on filedocumented in this encounter 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/10/24 09/16/2024 09/16/2024 11/24/2024 3:08 P M EST documented as of this encounter Care Teams Band Sawmill Operator Relationship Specialty Start Date End Date Lee Fabian MD [address] [place] [address] PCP - General Internal Medicine 09/02/24 Vitaliy Fields MD [address] [address] Cardiovascular Disease 09/02/24 Dallas Camejo MD [address] [place] [address] Surgery, Orthopedic 09/02/24 Rolando Lopez MD 622 [facility] Transplant - 14 [place] [address] Physician Nephrology 09/02/24 Cesar Fair MD 85 [facility] [address] [place] [address] Surgery, Cardiac 11/08/24 Daisy Her, PT [address] [facility] [address] [place] [address] Logistics PlannerWelder Plasma Arc Medicine and Rehabilitation 11/18/24 documented as of this encounter
--- OUTSIDE RECORDS SUMMARY | 2024-12-02 10:36 | XMS_ITS | Encounter Summary ---
Author Organization [facility] Address [address] [place] [address] Care Team Providers Care [employer] Manager Name Role Phone Lee Fabian MD Primary Care Provider [phone] Vitaliy Fields MD Unavailable Dallas Camejo MD Unavailable Rolando Lopez MD Unavailable Cesar Fair MD Unavailable Daisy Her PT Unavailable [phone] Reason for Visit * Auth/Cert Specialty Diagnoses / Procedures Referred By Contac t Referred To Contact Diagnoses left ankle infection Procedures N/A Referral ID Status Reason Start Date Expiration Date Visits Re quested Visits Authorized [id number] 1 1 Encounter Details Date Type Department Care Team (Late st Contact Info) Description 11/19/2024 1:30 PM EST - 11/19/2024 2:30 PM EST Surgery [facility] [address] [place] [address] Devon Vogt DO [address] [facility] [place] [address] CVC INSERT (TUNNEL)W/O PORT > 5 YRS Social History Tobacco Use Types Packs/Day Years Used Date Smoking Tobacco: Former Cigarettes 1 29.2 1 977 - 2004 Smokeless Tobacco: Never Alcohol Use Standard Drinks/Week Comments Yes 21 (1 standard drink = 0.6 oz pu re alcohol) [facility] Utilities Answer Date Recorded In the past 12 months has th e electric, gas, oil, or water company threatened [...] any time in the past 12 m [facility], were you homeless or living in a alf (including now)? No 11/03/2024 Sex and Gender Information Value Date Recorded Sex Assigned at Male 09/03/2024 12:21 PM EST Gender Identity Male 09/03/2024 12:21 PM EST Sexual Orientation Heterosexual (straight) 09/10 7:58 AM EST documented as of this encounter Last Filed Vital Signs Vital Sign Reading Time Taken Comments Blood Pressure 105/58 11/19/2024 2:30 PM EST Pulse 55 11/19/2024 2:30 PM EST Temperature 36.4 ??C (97.6 ??F) 11/19/2024 1 2:24 PM EST Respiratory Rate 16 11/19/2024 2:30 PM EST Oxygen Saturation 95% 11/19/2024 2:30 PM EST Inhaled Oxygen Concentration - - Weight 99.3 kg (218 lb 14.7 oz) 11/19/2024 5:00 AM EST Height 190.5 cm (6' 3 ) 11/09/2024 7:57 AM EST Body Mass Index 27.06 11/09/2024 7:57 AM EST documented in this encounter Discharge Summaries * Leroy Sanchez MD - 11/25/2024 1:59 PM EST Images from the original note were not included. PATIENT DEMOGRAPHICS BLAS GENAO 1960 63 y.o. Allergies Allergen Reactions Lisinopril Other (See Comments) Dehydration Admission Date: 11/02/2024 Admitting Provider: Dallas Camejo MD Discharge Provider: Leroy Sanchez MD Discharge Date: 11/25/2024 Primary Care Physician at Discharge: Lee Fabian MD OUTPATIENT TEAM Patient Care Team: Lee Fabian MD as PCP - General (Internal Medicine) Vitaliy Fields MD (Cardiovascular Disease) Dallas Camejo MD (Surgery, Orthopedic) Rolando Lopez MD as Physician (Nephrology) Cesar Fair MD (Surgery, Cardiac) Daisy Her PT as Document Management Consultant (Physical Medicine and Rehabilitation) PRIMARY DISCHARGE DIAGNOSIS Primary Discharge Diagnosis Principal Problem: Acute osteomyelitis of left calcaneus (HCC) (POA: Yes) Active Problems: HTN (hypertension) (POA: Yes) A-fib (HCC) (POA: Yes) PAD (peripheral artery disease) (POA: Yes) MERVIN on CPAP (POA: Yes) Diabetes (HCC) (POA: Yes) Stage 3a chronic kidney disease (CKD) (HCC) (POA: Yes) Hyperlipidemia (POA: Yes) Smoker (POA: Yes) Chronic diastolic congestive heart failure (HCC) (POA: Yes) Osteomyelitis (HCC) (POA: Yes) CKD (chronic kidney disease) (Chronic) (POA: Yes) Bacteremia (POA: Unknown) Presence of permanent cardiac pacemaker (POA: Unknown) Mitral valve vegetation (POA: Unknown) Mitral valve regurgitation (POA: Unknown) Resolved Problems: DISCHARGE DISPOSITION [facility] Facility Code Status Procedures Full code . MEDICATIONS AT TIME OF ADMISSION Current Outpatient Medications Medication Instructions acetaminophen (TYLENOL) 975 mg, Oral, Every 6 hours PRN amiODARONE (PACERONE) 200 mg, Oral, 2 times daily amiODARONE (PACERONE) 200 mg, Oral, Daily amLODIPine (NORVASC) 10 mg, Oral amLODIPine (NORVASC) 5 mg, Oral, Daily amoxicillin (AMOXIL) 500 mg, Oral, 3 times daily, For 1 week for DENTAL procedures amoxicillin (AMOXIL) 1,000 mg, Oral, 2 times daily, For 14 days apixaban (ELIQUIS) 5 mg, Oral, 2 times daily ascorbic acid (VITAMIN C) 500 mg, Oral, Daily aspirin enteric coated (ECOTRIN LOW STRENGTH) 81 mg, Oral, Daily bumetanide (BUMEX) 2 MG tablet 1 tablet, Oral, Daily buPROPion (WELLBUTRIN SR) 150 mg, Oral, 2 times daily cefTRIAXone 2 g in sodium chloride-MBP 0.9% 100 mL IVPB 2 g, Intravenous, Every 24 hours Cholecalciferol (Vitamin D-3) 125 MCG (5000 UT) Tab 2 tablets, Oral, Every morning ciprofloxacin (CIPRO) 500 mg, Oral, 2 times daily Continuous Glucose Sensor (FreeStyle Wallace 3 Sensor) [facility] INJECT 1 DEVICE INTO THE SKIN EVERY 14 DAYS cyanocobalamin 2,500 mcg, Oral, Daily DAPTOmycin-Sodium Chloride 700-0.9 MG/100ML-% Solution 975 mg, Intravenous, Daily donepezil (ARICEPT) 10 MG tablet 1 tablet, Oral, Every morning erythromycin (ILOTYCIN) ophthalmic ointment 1 application(s), Right Eye, 4 times daily folic acid (FOLVITE) 1 mg, Oral, Daily glipiZIDE (GLUCOTROL) 2.5 mg tablet 1 tablet, Oral, 2 times daily Jardiance 25 MG tablet 1 tablet, Oral, Daily Magnesium 250 mg, Oral, Every morning melatonin 5 mg, Oral, Nightly metFORMIN (GLUCOPHAGE) 500 mg, Oral, Daily with breakfast metFORMIN (GLUCOPHAGE) 500 mg, Oral, Daily with breakfast methocarbamol (ROBAXIN) 500 mg, Oral, 4 times daily PRN metoPROLOL TARTRATE (LOPRESSOR) 50 MG tablet 1 tablet, Oral, 2 times daily nicotine (NICODERM CQ) 7 MG/24HR patch 1 patch, Transdermal, Daily oxyCODONE (ROXICODONE) 5-10 mg, Oral, Every 4 hours PRN PANTOprazole (PROTONIX) 40 MG EC tablet 1 tablet, Oral, Daily polyethylene glycol (MIRALAX) 17 g, Oral, Daily pravastatin (PRAVACHOL) 20 MG tablet 1 tablet, Oral, Daily pregabalin (LYRICA) 150 MG capsule 1 capsule, Oral, 2 times daily pregabalin (LYRICA) 100 mg, Oral, 3 times daily senna (SENOKOT) 8.6 MG Tab tablet 2 tablets, Oral, Daily PRN sulfamethoxazole-trimethoprim (BACTRIM DS,SEPTRA DS) 800-160 MG per tablet 1 tablet, Oral, 2 times daily DISCHARGE MEDICATIONS ( Includes Changes Made During Current Admission) Discharge Medications New Medications Sig aspirin enteric coated 81 MG EC tablet Commonly known as: ECOTRIN LOW STRENGTH Take 1 tablet (81 mg total) by mouth daily. Quantity: 30 tablet buPROPion 150 MG 12 hr tablet Commonly known as: WELLBUTRIN SR Take 1 tablet (150 mg total) by mouth 2 (two) times a day in the morning and the early evening.. Quantity: 60 tablet cefTRIAXone 2 g in sodium chloride-MBP 0.9% 100 mL IVPB Infuse 2 g into a venous catheter every 24 hours. Stop taking on: December 28, 2024 DAPTOmycin-Sodium Chloride 700-0.9 MG/100ML-% Soln Infuse 975 mg into a venous catheter daily. erythromycin ophthalmic ointment Commonly known as: ILOTYCIN Administer 1 application(s) to the right eye 4 (four) times a day. Quantity: 1 g folic acid 1 MG tablet Commonly known as: FOLVITE Take 1 tablet (1 mg total) by mouth daily. Quantity: 30 tablet Modified Medications Sig amiODARONE 200 MG tablet Commonly known as: PACERONE What changed: when to take this Take 1 tablet (200 mg total) by mouth daily. Quantity: 30 tablet amLODIPine 5 MG tablet Commonly known as: NORVASC What changed: medication strength how much to take when to take this Take 1 tablet (5 mg total) by mouth daily. Quantity: 30 tablet pregabalin 100 MG capsule Commonly known as: LYRICA What changed: medication strength how much to take when to take this Take 1 capsule (100 mg total) by mouth 3 (three) times a day. Quantity: 90 capsule Medications To Continue Sig acetaminophen 325 MG tablet Commonly known as: TYLENOL Take 3 tablets (975 mg total) by mouth 4 times daily (every 6 hours) as needed for mild pain. Quantity: 168 tablet ascorbic acid 500 MG tablet Commonly known as: VITAMIN C Take 1 tablet (500 mg total) by mouth daily. Quantity: 14 tablet bumetanide 2 MG tablet Commonly known as: BUMEX Take 1 tablet (2 mg total) by mouth daily. cyanocobalamin 2500 MCG Tabs Take 1 tablet (2,500 mcg total) by mouth daily. donepezil 10 MG tablet Commonly known as: ARICEPT Take 1 tablet (10 mg total) by mouth every morning. FreeStyle Wallace 3 Sensor Misc INJECT 1 DEVICE INTO THE SKIN EVERY 14 DAYS glipiZIDE 2.5 mg tablet Commonly known as: GLUCOTROL Take 1 tablet (2.5 mg total) by mouth 2 times a day. Jardiance 25 MG tablet Generic drug: empagliflozin Take 1 tablet (25 mg total) by mouth daily. melatonin 10 MG Tabs tablet Take 5 mg by mouth nightly. * metFORMIN 1000 MG tablet Commonly known as: GLUCOPHAGE Take 0.5 tablets (500 mg total) by mouth every morning with breakfast. * metFORMIN 500 MG tablet Commonly known as: GLUCOPHAGE Take 1 tablet (500 mg total) by mouth every morning with breakfast. methocarbamol 500 MG tablet Commonly known as: ROBAXIN Take 1 tablet (500 mg total) by mouth 4 (four) times a day as needed for muscle spasms. Quantity: 20 tablet metoPROLOL TARTRATE 50 MG tablet Commonly known as: LOPRESSOR Take 1 tablet (50 mg total) by mouth 2 times a day. nicotine 7 MG/24HR patch Commonly known as: NICODERM CQ Place 1 patch on the skin daily. oxyCODONE 5 MG immediate release tablet Commonly known as: ROXICODONE Take 1-2 tablets (5-10 mg total) by mouth every 4 (four) hours as needed for severe pain. Max DailyAmount: 60 mg Quantity: 42 tablet PANTOprazole 40 MG EC tablet Commonly known as: PROTONIX Take 1 tablet (40 mg total) by mouth daily. polyethylene glycol 17 g packet Commonly known as: miraLAx Take 1 packet (17 g total) by mouth daily. Quantity: 10 packet senna 8.6 MG Tabs tablet Commonly known as: SENOKOT Take 2 tablets by mouth daily as needed for constipation. Quantity: 14 tablet Vitamin D-3 125 MCG (5000 UT) Tabs Take 2 tablets by mouth every morning. * There are duplicate medications prescribed to the patient Stopped Medications amoxicillin 500 MG capsule Commonly known as: AMOXIL amoxicillin 500 MG tablet Commonly known as: AMOXIL apixaban 5 MG tablet Commonly known as: ELIQUIS ciprofloxacin 500 MG tablet Commonly known as: CIPRO Magnesium 250 MG Tabs pravastatin 20 MG tablet Commonly known as: PRAVACHOL sulfamethoxazole-trimethoprim 800-160 MG per tablet Commonly known as: BACTRIM DS,SEPTRA DS DISCHARGE INSTRUCTIONS Amb Referral to Home Health Referral Priority: Routine Referral Type: Home Health Referral Location: [facility] Number of Visits Requested: 999 Activity as tolerated DISCHARGE DIET Diet Restricted Diet Diet Restrictions Diabetic Diet Restrictions Cardiac (heart healthy) Calorie/Carb Restriction Carb Counting 60g/meal 1600-1900kcal Call your doctor for: Fever or chills Call your doctor for: Inability to pass urine or blood in urine Call your doctor for: Persistent nausea or vomiting Call your doctor for: Severe pain not controlled by your medication Call your doctor for: Shortness of breath Call your doctor for: The same symptoms that brought you to the hospital FOLLOW UP Future Appointments Date Time Provider Department Center 12/07/2024 1:30 PM ROOM, ICD/PACER/LOOP [facility]mi 12/15/2024 10:45 AM Alba Ramos MD [id number] PM&r 12/16/2024 8:30 AM Ena Mtz MD INF[facility] DIS None ACTIVE ISSUES FOR FOLLOW UP Please see discharge instructions and radiological and hematological tests below for follow up. : Would need TATIANNA at the end of November INCIDENTAL FINDINGS Incidental hospital findings:none PENDING TEST RESULTS DISCHARGE DAY NOTE Patient was seen and examined by me on the date of discharge. General Appearance: Alert, Awake, not in acute distress. Cardiovascular: S1-S2 present, no murmurs present. Respiratory: Bilateral air entry present, no added sounds heard Gastrointestinal: soft, non-tender, non-distended, bowel sounds present. Extremities: negative edema I spoke with the patient regarding the discharge plan. The discharge plan was discussed with the case management and the nursing staff. Patient verbalzied understanding of the discharge and was agreeable for the discharge plan. Discharge Condition: stable Last Vitals: Pulse:(!) 59,Resp:18,BP:(!) 136/54,SpO2:94 %,Weight: 98.2 kg (216 lb 7.9 oz) Temp Last 24 hrs: Temp Min: 96.9 ??F (36.1 ??C) Max: 97.6 ??F (36.4 ??C) DETAILS OF HOSPITAL STAY History of Present Illness (from the H&P) Per admitting provider This is a 63-year-old male with a past medical history significant for atrial fibrillation, atrial flutter, pacemaker, diabetes, GERD, GIB, MERVIN/CPAP, hypertension, hyperlipidemia, PAD, RLS and CKD3 that presents to [facility] inpatient floor as a direct admit under Dr. Camejo's service today for known left calcaneous osteomyelitis. Patient presented to Dr. Camejo's office this morning with increasedpain, swelling and drainage from his left foot wound. He denies any recent fall or trauma. He denies any fevers/chills. He has currently been taking PO antibiotics at home. He states he discussed with Dr. Camejo coming to the hospital to begin Vancomycin and have a below the knee amputation on Friday. He is no longer on Eliquis. Hospital Course This is a 63-year-old male with past medical history of a flutter/A-fib s/p Watchman procedure, AV block s/p PPM, chronic diastolic heart failure, hypertension, hyperlipidemia, MERVIN on CPAP, CKD stageIII, PAD/PVD who presented as direct admit with plans for left 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 s/p calcaneal ostectomy on 08/2024 with wound VAC placement. Patient underwent left BKA on 11/05. Left foot wound grew MRSA, Enterococcus faecalis, VRE, chronic bacterium species and gram-negative bacilli. Hospital course further complicated with MRSA and VRE/Enterococcus faecalis/VCM bacteremia and cardiology was consulted. 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 He developed acute hypoxic respiratory failure secondary to CHF exacerbation and was transferred to medical stepdown unit for further management. In the stepdown, he was aggressively diuresed with Bumex drip and was weaned down on supplemental oxygen. He had a central line placed.EP consulted for possible infected pacer wire. O2 requirements improved and patient no longer requiring rescue BiPAP, satting well on 6LNC. MRI brain ordered to eval for septic emboli and patient reported tremor. Continued on diuresis. Initially held off on TATIANNA again due to anesthesia recommending more diuresis and optimizing respiratory status prior to procedure. ID discontinued aztreonam. Patient aggressively diuresed with large amount of urine output, CXR with improving bilateral congestion,proBNP downtrending, and O2 weaned to 3L NC. Patient went for TATIANNA in PM of 11/11 and was transferredto floor with telemetry after the procedure. On the medical floor, patient remains on IV antibiotic daptomycin, ceftaroline has been discontinued. MRI brain did not reveal any septic emboli. EP recommending pacemaker removal which she had on 11/17 with an implant of a AV Micra PM.. Echocardiogram showed EF of 45% which is similar to echo last year. For acute CHF, cardiology continued to follow and patient was continued on Bumex drip later switched to Bumex 1 Mg IV twice daily, further titrated down to p.o. Bumex 2 mg daily which she is stable on now. Nephrology also were consulted in the setting of TABITHA on CKD and they recommended resuming current management as his creatinine is going down close to his baseline. Pro line was placed on 11/19 as we were not able to place PICC line per nephrology recommendations. Plan to discharge on IV daptomycin and Rocephin till December 28 and repeat TATIANNA as outpatient to follow-up on endocarditis per IDrecommendations. ID recommendations: Daptomycin 975 mg IV every 24 hours through December 28, 2024 Ceftriaxone 2 gram IV every 24 hours through December 28, 2024 CBC, LFTs, creatinine with EGFR, CK, ESR, CRP once a week while on IV antibiotics. Fax results to [phone]. Patient will need to be scheduled for repeat TATIANNA end of November. I reached out to the cardiology team collected scheduled cardiology to arrange for TATIANNA on the end of November per ID recommendations. The patient remained euvolemic and hemodynamically stable, initially he was waiting for the bed in acute rehab however the patient declined to go to acute rehab he went to be discharged home with services. Services were set up for antibiotics administration PT and OT. He was weaned completely off oxygen he had nocturnal O2 evaluation and he did not qualify for oxygen. He will need to follow-up with ID, and cardiology, EP and physical medicine and rehabilitation. He is already scheduled to follow-up with ID on 12/16/2024. He has scheduled follow-up with the EP as well as physical medicine and rehabilitation. Consults: Cardiology, electrophysiology, ID, nephrology Procedures: Surgical/Procedural Cases on this Admission Case IDs Date Procedure Surgeon Location Status [id number] 11/05/24 LEFT BELOW KNEE AMPUTATION Dallas Camejo MD [facility] OR Comp [id number] 11/17/24 Extraction lead(s) laser from dual PM system; [id number] Rui Pabon MD Main OR Comp [id number] 11/19/24 CVC INSERT (TUNNEL)W/O PORT > 5 YRS Devon Vogt DO IR Comp Diagnostic Studies: XR Foot 1 view-Left Result Date: 11/02/2024 This exam was performed in office at [facility] and images reviewed by orthopedic provider. Any findings are documented within ambulatory encounter note on date of service. Results from last 7 days Lab Units 11/24/24 0656 11/23/24 0643 11/22/24 0731 WHITE BLOOD CELL COUNT Thou/uL 10.0 10.8 12.1* HEMOGLOBIN g/dL 9.0* 8.7* 8.1* HEMATOCRIT % 29.5* 28.3* 26.2* PLATELET COUNT Thou/uL 366 353 333 Results from last 7 days Lab Units 11/25/24 1213 11/25/24 0840 11/24/24 1656 11/24/24 0752 11/24/24 0656 11/23/24 0734 11/23/24 0643 11/22/24 0735 11/22/24 0731 SODIUM mmol/L -- -- -- -- 139 -- 140 -- 137 POTASSIUM mmol/L -- -- -- -- 3.8 -- 4.0 -- 4.2 CHLORIDE mmol/L -- -- -- -- 102 -- 104 -- 101 CO2 mmol/L -- -- -- -- 24 -- 25 -- 27 BUN mg/dL -- -- -- -- 35* -- 31* -- 36* CREATININE mg/dL -- -- -- -- 1.6* -- 1.5* -- 1.6* CALCIUM mg/dL -- -- -- -- 8.9 -- 9.0 -- 8.8 GLUCOSE mg/dL -- -- -- -- 99 -- 114* -- 178* GLUCOSE, POC mg/dL 120* 150* 105* < > -- < > -- < > -- EGFR -- -- -- -- 48* -- 52* -- 48* ALBUMIN g/dL -- -- -- -- 3.1* -- 3.1* -- -- PROTEIN, TOTAL g/dL -- -- -- -- 6.7 -- 6.6 -- -- BILIRUBIN TOTAL mg/dL -- -- -- -- 0.2 -- 0.2 -- -- ALK PHOS U/L -- -- -- -- 97 -- 103 -- -- ALT U/L -- -- -- -- 20 -- 28 -- -- AST U/L -- -- -- -- 14 -- 22 -- -- < > = values in this interval not displayed. Lab Results Component Value Date ALT 20 11/24/2024 AST 14 11/24/2024 ALKPHOS 97 11/24/2024 BILITOT 0.2 11/24/2024 Lab Results Component Value Date PROBNP 429 (H) 11/15/2024 Results from last 7 days Lab Units 11/23/24 0643 CK TOTAL U/L 36 Blood Cultures: Lab Results Component Value Date CULTURE Sterile after 5 days 11/07/2024 Urine Cultures: Lab Results Component Value Date BILIUA Negative 11/19/2024 BLOODUA Negative 11/19/2024 CLARITYUA Clear 11/19/2024 COLORUA Yellow 11/19/2024 KETONESUA Negative 11/19/2024 LEUKOCYTESUA Large (A) 11/19/2024 NITRITEUA Negative 11/19/2024 PHUA 6.0 11/19/2024 PROTEINUA Negative 11/19/2024 RBCUA 2 11/19/2024 SPECGRAVUA 1.008 11/19/2024 WBCUA >25 (H) 11/19/2024 C. Difficile: No results found for: CDIFFTOX , NAP1 TIME SPENT FOR DISCHARGE Total time spent for discharge 40 mins Time was spent in educating the patient, making a comprehensive discharge plan and discussion with the staff regarding the discharge plan, medication reconciliation and discharge summary. Leroy Sanchez MD 11/25/2024 2:00 PM documented in this encounter Discharge Instructions * Discharge Instr - Other Orders* Gretel Hinds, SHUBHAM - 11/17/2024 9:20 AM EST Cardiac Device Extraction Discharge Instructions Important phone numbers: Brazing Machine Operator Helper/Surgeon???s office: [phone] (8am-4:30pm Fri - Friday Our answering service is available after hours for emergencies and can contact the On-Call MD * If you have symptoms similar to before your device was implanted (dizziness, near-fainting, fatigue) or you receive a shock from your ICD, please call the office at number listed above. Care of Your Device Incision: Monitor your incision daily for: Redness Swelling Drainage Opening of the skin at the incision line Worsening pain Fever higher than 101?? F, or chills Wound healing: if bleeding occurs, apply pressure for 20 minutes. If it does not stop, go to [facility] ER or walk-in center. If you experience any of the above, call your surgeon/first aid attendant???s office immediately. If still present, remove the gauze dressing 24 hours after surgery. There may be steri-strips or a special adhesive over the incision. Do not remove these; they should come off gradually with showering. If after 2 weeks there are still strips or glue present, you can gently remove these using baby oil. If you have steri-strips, do not get them wet for 3 days after discharge. If you have the special adhesive, you may shower 24 hours after discharge Do not use alcohol, lotions, powders or ointments on the incision It is normal to have some bruising or mild swelling around the incision/pocket for a few weeks after surgery. If needed, you can take Tylenol (acetaminophen) every 6 hours for discomfort. Never take more than 3,000mg of acetaminophen in 24 hours. If your discomfort is severe or is not relieved by acetaminophen, please call your surgeon???s office immediately, as this may indicate there is a problem. Restrictions: Do not lift more than 10lbs (approximately 1 gallon of milk) with your extracted device arm for 2 weeks after surgery. This includes children, grandchildren and pets! Sexual activity can be resumed when you feel ready. You can resume your normal activities. Walking is healthy and recommended. Increase activity as tolerated. General Instructions: If nausea or vomiting occur when you arrive home, please drink clear fluids in small amounts as youare able, such as: water, ice chips, diluted fruit juice, low calorie sports drinks. Please also eat bland, easy to digest foods in small amounts as you are able, such as: bananas, applesauce, rice, toast, crackers. Please call our office if you cannot drink fluids without vomiting, if you are vomiting or nauseousfor >24 hours, you feel light-headed or dizzy or if you have a headache. Do not make important personal or business decisions for 24 hours after your procedure. Do not operate kitchen appliances, machinery or power tools for 24 hours after your procedure. Do not drive a motor vehicle for at least 3 days post procedure. Activity: -Although the puncture sites in your legs heal quickly, there is a small chance of bleeding from the puncture site where the catheters were placed during your procedure. For at least 3 days, do not lift, push, or pull anything heavier than 10 pounds or do any exercise that causes you to hold your breath and bear down with your abdominal muscles. One week after the procedure, you may resume your regular activities, including sexual activity. Wesuggest that you begin your exercise program at half your usual routine for the first few days and gradually work back to your full routine. If you are on Coumadin/warfarin or any other prescribed blood thinners: For at least 7 days, do not lift, push, or pull anything heavier than 10lbs or do any exercises that causes you to hold your breath and bear down with your abdominal muscles 10 days after your procedure, you may resume your regular activities, including sexual activity. Wesuggest that you begin your exercise program at half your usual routine for the first few days and gradually work back to your full routine. Care of the Puncture Sites: Do not take a tub bath, sit in a hot tub, or swim until the puncture site is healed. This usually takes about a week. Leave the dressing (s) on the site(s) until the day after the procedure. A small bruise or bump (around the size of an almond) may form under the skin at the puncture site.This is common and generally disappears in 3-4 weeks. Keep the site clean and dry. You may get the sites wet the day after the procedure. Use regular soap and water and pat the area dry; do not rub. Do not use alcohol, ointment, lotion, powder or creams over the puncture sites. Monitor the sites daily for signs of infection: fever, redness, swelling, warmth, new soreness or drainage. Report any of these symptoms to your first aid attendant. Call your primary catering assistant if you experience any of the following: Weight gain of more than 3 pounds in 24 hours, worsening shortness of breath, or chest pain not related to your surgical site. Remote Monitor/Transmitter information: You should have received a remote monitor at the time of your implant. Please plug in your remote monitor immediately when you return home after your hospital stay. Instructions are available in the remote monitor box. If you have difficulty setting up the monitor up or have questions, please call the device company???s toll free number listed on the box or monitor. Micra Pacemaker Discharge Instructions Important phone numbers: Pacemaker Clinic: [phone] (8am-4:30pm Fri-Friday) Brazing Machine Operator Helper/Surgeon???s office: [phone] (8am-4:30pm Fri -Friday) Our answering service is available after hours for emergencies and can contact the On-Call MD * If you have symptoms similar to before your pacemaker was implanted (dizziness, near-fainting, fatigue) please call our office *If you need to make or reschedule an appointment, please call during our regular business hours. Care of Your Groin Incision: Monitor your incision daily for: Redness Swelling Drainage Opening of the skin at the incision line Worsening pain Fever higher than 101?? F, or c If you experience any of the above, call your first aid attendant???s office immediately It is normal to have some bruising or mild swelling around the incision for a few weeks after surgery. If needed, you can take Tylenol (acetaminophen) every 6 hours for discomfort. Never take more than 4,000 mg of acetaminophen in 24 hours. If your discomfort is severe or is not relieved by acetaminophen, please call your surgeon???s office immediately, as this may indicate there is a problem. Do not use alcohol, lotions, powders or ointments on the incision Activity: Although the puncture site heals quickly, there is a small chance of bleeding from the puncture site where the catheter were placed during your procedure. For at least 3 days, do not lift, push, or pull anything heavier than 10 pounds or do any exercise that causes you to hold your breath and bear down with your abdominal muscles. Do not drive for at least 3 days after your procedure. One week after the procedure, you may resume your regular activities, including sexual activity. Wesuggest that you begin your exercise program at half your usual routine for the first few days and gradually work back to your full routine. Avoid dental work or dental surgery for 6 months after implant if possible. Please notify your dentist that you have a device, sometimes antibiotics are prescribed for dental procedure. You should call your primary catering assistant if you experience any of the following: Weight gain of more than 3 pounds in 24 hours Worsening shortness of breath, not relieved by rest Swelling of the feet and legs Chest pain not related to your incisions Inability to do regular activities New symptoms of lightheadedness, dizziness, fluttering in the chest or near fainting Follow Up Appointments: You will be seen every 3 months for device evaluation. If your pacemaker will be monitored by our pacemaker clinic, we will make an appointment for you shelly seen within 4-6 weeks. If you did not get an appointment at discharge, please call our office when you get home. If your primary catering assistant???s office will monitor your pacemaker, please call that office to schedule a 6 week appointment. documented in this encounter Medications at Time of Discharge Medication Sig Dispensed Refills Start Date End Date amiODARONE (PACERONE) 200 MG tabletIndications:Endoc arditis Take 1 tablet (200 mg total) by mouth daily. 30 tablet 11/25/2024 12/25/2024 amLODIPine (NORVASC) 5 MG tabletIndications:Endoc arditis Take 1 tablet (5 mg total) by mouth daily. 30 tablet 11/25/2024 12/25/2024 aspirin enteric coated (ECOTRIN LOW STRENGTH) 81 MG EC tabletIndications:Endoc arditis Take 1 tablet (81 mg total) by mouth daily. 30 tablet 11/25/2024 12/25/2024 bumetanide (BUMEX) 2 MG tablet Take 1 tablet (2 mg total) by mouth daily. buPROPion (WELLBUTRIN SR) 150 MG 12 hr tabletIndications:Endoc arditis Take 1 tablet (150 mg total) by mouth 2 (two) times a day in the morning and the early evening.. 60 tablet 11/25/2024 12/25/2024 cefTRIAXone 2 g in sodium chloride-MBP 0.9% 100 mL IVPBIndications:Endocar ditis Infuse 2 g into a venous catheter every 24 hours. 11/24/2024 12/28/2024 Cholecalciferol (Vitamin D-3) 125 MCG (5000 UT) Tab Take 2 tablets by mouth every morning. Continuous Glucose Sensor (FreeStyle Wallace 3 Sensor) Misc INJECT 1 DEVICE INTO THE SKIN EVERY 14 DAYS 06/30/2024 cyanocobalamin 2500 MCG Tab Take 1 tablet (2,500 mcg total) by mouth daily. DAPTOmycin-Sodium Chloride 700-0.9 MG/100ML-% SolutionIndications:Acu te osteomyelitis of left calcaneus (HCC) Infuse 975 mg into a venous catheter daily. 11/24/2024 12/28/2024 donepezil (ARICEPT) 10 MG tablet Take 1 tablet (10 mg total) by mouth every morning. 10/20/2023 erythromycin (ILOTYCIN) ophthalmic ointmentIndications:Acu te bacterial conjunctivitis of right eye Administer 1 application(s) to the right eye 4 (four) times a day. 1 g 11/25/2024 folic acid (FOLVITE) 1 MG tabletIndications:Endoc arditis Take 1 tablet (1 mg total) by mouth daily. 30 tablet 11/25/2024 12/25/2024 glipiZIDE (GLUCOTROL) 2.5 mg tablet Take 1 tablet (2.5 mg total) by mouth 2 times a day. 03/10/2024 Jardiance 25 MG tablet Take 1 tablet (25 mg total) by mouth daily. 05/06/2024 melatonin 10 MG Tab tablet Take 5 mg by mouth nightly. metFORMIN (GLUCOPHAGE) 1000 MG tablet Take 0.5 tablets (500 mg total) by mouth every morning with breakfast. 07/31/2024 metFORMIN (GLUCOPHAGE) 500 MG tablet Take 1 tablet (500 mg total) by mouth every morning with breakfast. metoPROLOL TARTRATE (LOPRESSOR) 50 MG tablet Take 1 tablet (50 mg total) by mouth 2 times a day. nicotine (NICODERM CQ) 7 MG/24HR patch Place 1 patch on the skin daily. 05/24/2024 oxyCODONE (ROXICODONE) 5 MG immediate release tabletIndications:Other chronic osteomyelitis of foot, unspecified laterality (HCC) Take 1-2 tablets (5-10 mg total) by mouth every 4 (four) hours as needed for severe pain. Max Daily Amount: 60 mg 42 tablet 10/05/2024 PANTOprazole (PROTONIX) 40 MG EC tablet Take 1 tablet (40 mg total) by mouth daily. 09/16/2023 pregabalin (LYRICA) 100 MG capsuleIndications:Endo carditis Take 1 capsule (100 mg total) by mouth 3 (three) times a day. 90 capsule 11/25/2024 12/25/2024 documented as of this encounter Progress Notes * Juany Ospina RN - 11/25/2024 7:51 PM ESTSumflorentinoy: Nurse Navigator Note 11/26/24 1210 Transition Call Pain level 5 How well is pain controlled? Well controlled Discharged medications reviewed with patient? Yes Are you taking meds as prescribed? Yes Do you have any questions or concerns about your medication? Yes (Asked about why he only has IV meds to get him through the weekend - advised to call [facility] - phone number on pg 5 of AVS) Do you have any questions about your dressing or incision? No How often are you standing up & moving? Less than once an hour Are you drinking fluids throughout the day? Yes How is your appetite? Good Have you had a bowel movement since surgery? Yes Are you urinating normally? Yes Did your surgeon order home care services for you? Yes Date of first home care visit 11/26/24 Do you have an appointment scheduled with your surgeon? No (Will make appointment after [facility] visit today) Transition Call Complete Yes * Tonya White RN - 11/25/2024 2:12 PM EST 11/25/24 1400 Plan Plan Home w/family and [facility] Patient/Family in Agreement with Plan yes Final Discharge Disposition Code 06 - home with home health care Final Case Management Care Plan Note Summary: Per provider, patient is medically ready to transition home with services. Confirmed that patient is able to obtain medications/food/necessities post discharge. Patient now refusing HSC (LTACH) and returning home with son, [facility] for IV abx and [facility]. Final Destination: Home with son and [facility] Plan for home support/Caregiver/responsible person: Son and [facility] Follow-up provider appointment: Per AVS/W-10 Equipment Ordered and Given at Discharge: Final Discharge Transportation: Ambulance * Christen Tapia OT - 11/25/2024 2:05 PM EST Occupational Therapy Progress Note Assessment & Progress Summary: Pt seen for f/u OT tx. Session focused on transfer training and wheelchair mobility in prep for d/c home this afternoon. Pt reports his son will be staying with him and can assist with care as needed. Pt reports he has purchased a wheelchair, tub bench, grab bars, and commode. Recommend home OT services upon d/c. Progress Towards Goals: progress toward functional goals is good Outcome Measures: The Activity Measure for Post-Acute Care (AM-PAC) Daily Activity Inpatient Short Form (6-clicks) zakiya standardized measure used to quantify deficits in self-care. The total score of the measure ranges from 6-24. A higher score indicates a higher level of independence with self-care tasks. Current [facility] Daily Activity Score: 18 Precautions/Restrictions: aspiration, fall, other (see comments) (skin) Rehab Plan of Care Pt remains functioning below his baseline and would benefit from continued OT services 2-3x/week while hospitalized to address deficits in strength, balance, and endurance in order to maximize functional independence with ADL/IADL and mobility. OT Recommendations for Staff: AX1 SPT chair/commode with RW, OOB for meals, encourage participationwith ADLs OT Frequency during Hospitalization: 2-3 times/wk Progressive Mobility Level: Level 4 Plan of Care Reviewed With: care plan/treatment goals reviewed, patient, participants voiced agreement with care plan Education: OT role, POC, and recommendations, ADL and mobility techniques Treatment Interventions/Objective Data Transfers: repeated pivot transfers recliner<>wheelchair without device + with use of RW requiring CG/SBA Wheelchair Mobility: Pt educated on all safety features of wheelchair, swing away leg rests, removable arm rests, + propulsion techniques. Pt demonstrates ability to propel wheelchair using BUEs on outer castors + intermittent use of RLE. Good obstacle + turn negotiation with ability to set-up wheelchair towards various surfaces in prep for transfers. Endurance/Activity Tolerance: Good for session, performed all activity RA Subjective I think ahead Flowsheet Data 11/25/24 1405 OT Time and Intention OT Follow-Up Visit follow up treatment Mode of Treatment occupational therapy Patient Effort good Symptoms Noted During/After Treatment none General Information Patient Profile Reviewed yes Patient/Family/Caregiver Comments/Observations I think ahead General Observations of Patient Rec'd in recliner, in NAD on RA, agreeable. Appliance Painter And Refinisher + limb protector donned to LLE Pain Assessment Pre/Posttreatment Pain Comment denied pain Coping Observed Emotional State calm;cooperative Safety Safety WDL WDL Progressive Mobility Progressive Mobility Level Achieved Transferring to Chair [facility] Daily Activity Putting on and taking off Lower Body Clothing? 3 Bathing (including washing/rinsing/drying)? 2 Toileting (includes using toilet, bedpan, or urinal)? 2 Putting on and taking off upper body clothing? 3 Taking care of personal grooming such as brushing teeth? 4 Eating meals? 4 [facility] Daily Activity Score 18 Progress Summary (OT) Progress Toward Functional Goals (OT) progress toward functional goals is good Sign: Christen Tapia OT * Aditi Jones PA-C - 11/25/2024 11:50 AM EST PHYSICAL MEDICINE & REHABILITATION CONSULT FOLLOW-UP NOTE Patients Name: Blas Genao : 1960 MR Number: [id number] Reason for Consultation: Amputee rehab needs Date of Admission to hospital: 11/02/2024 6:10 PM PCP: Lee Fabian MD Assessment: Blas Genao is a 63 y.o. 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 He underwent L BKA with Dr. Camejo on 11/05. Course complicated by bacteremia with concern for mitral valve endocarditis/pacer lead infection s/p device extraction and Micra PPM implantation on 11/[address] Pabon, hypoxic respiratory failure requiring CPAP, acute CHFmrEF, pain. He is NWB to [facility]. Rehab Diagnosis: s/p left BKA Amputation: 05.4 Unilateral Lower Limb Below the Knee /osteomyelitis Impairments: Left below the knee amputation, impaired mobility, impaired transfers, impaired balance, impaired ability to perform self-cares, pain, neuropathic pain, decreased cardiopulmonary endurance, and decreased activity tolerance Recommendations: At this time, anticipate that patient would benefit most from acute inpatient rehab once medically ready pending adequate home support, tolerance to therapy and plan for manager long term care antibiotics. He mayhave ability to progress to home with services/therapy. Sleep: Encourage good sleep hygiene. Optimize sleep/wake cycles. Keep lights on and stimulus duringthe day. Dark room and minimize nighttime interruptions. Currently on melatonin 3 mg q HS. Bladder:Monitor spontaneous outputs. Bowel: To prevent constipation with current pain medication management, continue scheduled senna-docusate 2 tablets nightly and MiraLAX daily. Diet: Cardiac diet Pain control: Currently on Lyrica 100 mg TID, Tylenol 975 mg every 6 hours methocarbamol 1000 mg QID Mood/cognition: Currently on aricept 10 mg daily, bupropion 150 mg BID Continue PT and OT to maximize functional independence with mobility and self-cares. Please mobilize patient out of bed as able. Follow-up with PM&R as outpatient. Currently has an appointment on 12/[address] Rachel fajardo need to be changed if patient unable to obtain transportation. We will continue to follow. Please TT PM&R Consults (Physical Medicine and Rehabilitation) if any questions. Subjective: The patient was seen at the bedside this morning. Reports that he is feeling well overall without pain, wants to go home with services. Current Functional Status: PT 11/23 Transfers Assessment/Intervention: Sit to stand training from bedside chair, Pt able to stand with CGA x 5 Improvements noted in initial standing balance and sequencing for weight shift to improve balance throughout transfer. Pt will require further therapy to improve to I level Gait/Stair Assessment/Intervention: Pt hopped with RW and CGA 8' x 3. No LOB slow methodical sequencing throughout. Activity Tolerance/Endurance Assessment/Intervention: Fair OT 11/22 Interventions to Optimize ADL Performance Dressing: min A to don (R) sock via figure-4, increased assist to don/doff (L)LE limb protector Toileting: increased assist for clothing management + hygiene d/t need for BUE support to maintain balance in stance Bed Mobility: supine<>sit CG Transfers: sit<>stand min A; good carry-over of hand placement Functional Mobility: Pt performed short bouts of functional mobility within room bed>recliner, recliner>commode using RW requiring min AX1 Therapeutic Exercise: Pt provided with red theraband + UE HEP. Pt demonstrates excellent understanding + carry-over of exercises. Encouraged to perform 10-15 reps x 3 sets, at least 3x/day Endurance/Activity Tolerance: Good for session, performed all activity RA Allergies Allergen Reactions Lisinopril Other (See Comments) Dehydration Current Facility-Administered Medications Medication Dose Route Frequency Provider Last Rate Last Admin acetaminophen (TYLENOL) tablet 975 mg 975 mg Oral Q6H PRN Corbin Lamb APRN amiODARONE (PACERONE) tablet 200 mg 200 mg Oral Daily Corbin Lamb APRN 200 mg at 11/25/24 0935 amLODIPine (NORVASC) tablet 5 mg 5 mg Oral Daily Gianluca Calles MD 5 mg at 11/25/24 0935 aspirin enteric coated (ECOTRIN LOW STRENGTH) tablet 81 mg 81 mg Oral Daily Gianluca Calles MD 81mg at 11/25/24 0935 benzocaine-menthol (CHLORASEPTIC) 6-10 MG lozenge 1 lozenge 1 lozenge Mouth/Throat Q2H PRN Baldomero Hinds APRN bisacodyl (DULCOLAX) suppository 10 mg 10 mg Rectal Daily PRN Corbin Lamb APRN bumetanide (BUMEX) tablet 2 mg 2 mg Oral Daily Gianluca Calles MD 2 mg at 11/25/24 0934 buPROPion (WELLBUTRIN SR) 12 hr tablet 150 mg 150 mg Oral BID Corbin Lamb APRN 150 mg at 11/25/24 0935 calcium carbonate (TUMS) chewable tablet 1,000 mg 1,000 mg Oral Q12H PRN Corbin Lamb APRN 1,000 mg at 11/24/24 0814 calcium citrate (CALCITRATE) tablet 950 mg 950 mg Oral BID with meals Corbin Lamb APRN 950 mgat 11/25/24 0935 carboxymethylcellulose (REFRESH PLUS) 0.5 % ophthalmic solution 2 drop 2 drop Each Eye Q2H PRN Gretel Hinds, ASSOCIATE THEATRE PROFESSOR cefTRIAXone (ROCEPHIN) 2 g in sodium chloride-MBP (NS) 100 mL IVPB-MBP 2 g Intravenous Q24H MD Dylan 200 mL/hr at 11/25/24 1113 2 g at 11/25/24 1113 chlorhexidine gluconate 2 % wipes - urethral catheter CHG application Topical Daily Corbin Lamb APRN 1 each at 11/25/24 0951 cholecalciferol tablet 2,000 Units 2,000 Units Oral Daily Corbindenise Lamb APRN 2,000 Units at 11/25/24 0934 cyanocobalamin (VITAMIN B-12) tablet 2,500 mcg 2,500 mcg Oral Daily Corbin Lamb APRN 2,500 mcg at 11/25/24 0932 DAPTOmycin (CUBICIN) 975 mg in sodium chloride (NS) 0.9 % 50 mL IVPB 10 mg/kg (Adjusted) Intravenous Q24H Corbin Lamb APRN 139 mL/hr at 11/24/24 1347 975 mg at 11/24/24 1347 donepezil (ARICEPT) tablet 10 mg 10 mg Oral QAM Corbin Lamb APRN 10 mg at 11/25/24 0935 empagliflozin (JARDIANCE) 25 mg 25 mg Oral Daily Gianluca Calles MD 25 mg at 11/25/24 0935 erythromycin (ILOTYCIN) ophthalmic ointment 1 application(s) 1 application(s) Right Eye 4x Daily Leroy Sanchez MD 1 application(s) at 11/24/24 210 folic acid (FOLVITE) tablet 1 mg 1 mg Oral Daily Corbin Lamb APRN 1 mg at 11/25/24 0934 glimepiride (AMARYL) tablet 2 mg 2 mg Oral Daily with breakfast Gianluca Calles MD 2 mg at 11/25/24 0935 heparin (porcine) 5000 unit/mL injection 5,000 Units 5,000 Units Subcutaneous Q8H [facility] Gianluca Calles MD 5,000 Units at 11/25/24 0931 insulin glargine (LANtus/SEMGLEE) 100 units/mL injection 10 Units 10 Units Subcutaneous Daily Corbin Lamb APRN 10 Units at 11/25/24 0933 insulin lispro (HumaLOG/ADMELOG) 100 units/mL injection 1-6 Units 1-6 Units Subcutaneous TID with meals Corbin Lamb APRN 1 Units at 11/25/24 0900 insulin lispro (HumaLOG/ADMELOG) 100 units/mL injection 3 Units 3 Units Subcutaneous TID with mealsCorbin Lamb APRN 3 Units at 11/25/24 0905 ipratropium-albuterol (DUONEB) 0.5-2.5 mg/3 mL nebulizer solution 3 mL 3 mL Nebulization Q2H PRN Corbin Lamb APRN 3 mL at 11/07/24 1025 lactulose (ENULOSE) 10 gm/15 mL solution 20 g 20 g Oral Q4H PRN Corbni Lamb APRN melatonin tablet 3 mg 3 mg Oral Nightly PRN Corbin Lamb APRN 3 mg at 11/19/24 2222 methocarbamol (ROBAXIN) tablet 1,000 mg 1,000 mg Oral 4x Daily Corbin Lamb ASSOCIATE THEATRE PROFESSOR 1,000 mg at 11/25/24 0934 metoPROLOL TARTRATE (LOPRESSOR) tablet 50 mg 50 mg Oral BID Corbin Lamb ASSOCIATE THEATRE PROFESSOR 50 mg at 11/25/24 0935 multivitamin with minerals tablet 1 tablet 1 tablet Oral Daily Corbin Lamb APRN 1 tablet at 11/25/24 0935 naloxone (NARCAN) 0.4 mg/mL injection 0.4 mg 0.4 mg Intravenous Q5 Min PRN Corbin Lamb APRN naloxone (NARCAN) 0.4 mg/mL injection 0.4 mg 0.4 mg Intravenous Q5 Min PRN Corbin Lamb APRN nicotine (NICODERM CQ) 21 MG/24HR patch 1 patch 1 patch Transdermal Daily Corbin Lamb APRN 1patch at 11/25/24 0930 ondansetron (ZOFRAN) injection 4 mg 4 mg Intravenous Q6H PRN Corbin Lamb ASSOCIATE THEATRE PROFESSOR 4 mg at 11/17/24 1639 PANTOprazole (PROTONIX) EC tablet 40 mg 40 mg Oral Daily Corbin Adonis, ASSOCIATE THEATRE PROFESSOR 40 mg at 11/25/24 0935 polyethylene glycol (miraLAx) packet 17 g 17 g Oral Daily Corbin Adonis, ASSOCIATE THEATRE PROFESSOR 17 g at 11/25/24 0932 [Provider Held] pravastatin (PRAVACHOL) tablet 20 mg 20 mg Oral Daily Corbin Adonis, ASSOCIATE THEATRE PROFESSOR pregabalin (LYRICA) capsule 100 mg 100 mg Oral TID Corbin Adonis, ASSOCIATE THEATRE PROFESSOR 100 mg at 11/25/24 0935 senna-docusate (SENNA-S) 8.6-50 MG tablet 2 tablet 2 tablet Oral BID Corbin Adonis, ASSOCIATE THEATRE PROFESSOR 2 tablet at 11/25/24 0936 thiamine mononitrate (VITAMIN B-1) tablet 200 mg 200 mg Oral Daily Corbin Adonis, ASSOCIATE THEATRE PROFESSOR 200 mg at11/25/24 0934 Physical Exam: Vitals: Blood pressure (!) 136/54, pulse (!) 59, temperature 97.2 ??F (36.2 ??C), temperature source Tympanic, resp. rate 18, height 1.905 m (6' 3 ), weight 98.2 kg (216 lb 7.9 oz), SpO2 94%. General: Not in acute distress, sitting up in recliner HEENT: Normocephalic, atraumatic, anicteric sclera, moist mucous membranes Cardiac: Appears well perfused. S/p left PPM, proline in place Pulmonary: Normal work of breathing, on room air Abdomen: Normal habitus Extremities: s/p right transmetatarsal amputation. S/p Left BKA with ampushield and stump coil winder repair C/D/I Skin: No skin breakdown to exposed skin Neurologic: Alert, interactive. Face is symmetrical. Speech fluent without dysarthria. MMT: Able to extend left knee. No contractures noted. Moves bilateral upper extremities and lower extremities spontaneously. Labs: Notable labs are: Lab Results Component Value Date WBC 10.0 11/24/2024 HGB 9.0 (L) 11/24/2024 HCT 29.5 (L) 11/24/2024 PLT 366 11/24/2024 Lab Results Component Value Date NA 139 11/24/2024 K 3.8 11/24/2024 CL 102 11/24/2024 CO2 24 11/24/2024 CO2 22 11/07/2024 BUN 35 (H) 11/24/2024 CREAT 1.6 (H) 11/24/2024 GLUC 150 (H) 11/25/2024 GLUC 99 11/24/2024 GLUC 119 (H) 09/10/2024 Lab Results Component Value Date AST 14 11/24/2024 ALT 20 11/24/2024 ALKPHOS 97 11/24/2024 BILITOT 0.2 11/24/2024 BILIDIR 0.1 11/23/2024 ALBUMIN 3.1 (L) 11/24/2024 PROT 6.7 11/24/2024 Diagnostic Studies: No results found. Assessment/Recommendations at top of note. Aditi Jones PA-C PM&R Date: 11/25/2024 Time: 11:51 AM Time spent today on chart review in preparation to see patient, review of labs, review of labs and imaging, documentation of care, and counseling/education to patient, including face to face time with patient: 35 minutes * Juany Ospina RN - 11/25/2024 9:50 AM ESTSummary: Nurse Navigator Note Final Ortho Trauma Nurse Navigator Rounding Note Met with patient. Introduced self to patient and reminded of nurse navigator role. Patient's interaction with nurse navigator today: Receptive and Demonstrated understanding Patient will be transitioning out of the hospital today to his home with family and home healthcare. Assessment Pain: Patient reports pain is Good Patient Experience: Patient reports he has no pain at all and that the care he has received has been excellent throughout his stay at [facility]/. Plan of Care Patient's plan of care reviewed patient at 0950. Interventions Discussed the importance of using the incentive spirometer after surgery and discharge to keep lungs expanded and prevent post-op pneumonia. Reviewed the need to maintain a consistent bowel regimen when taking narcotic pain meds to prevent constipation. Discussed the s/s of infection and DVT's. Patient indicated understanding. Provided patient with ???stoplight?? to aid in determining who to call with questions or concerns once discharged from the hospital. Surgeon's contact number included on handout. Reminded patient that they will need to make a follow up appointment with their surgeon. NN let them know that the name and contact information for the surgeon as well as the time frame for the follow up will print out on their AVS. Patient informed to be expecting a call from nurse navigator within 24-72 hours after transitioningfrom hospital to discuss progress and/or any concerns. Confirmed patient contact information. Patient's questions and concerns addressed. Anything needing further assistance was brought to the attention of patient's care team. Patient provided with direct contact information for Nurse Navigator and reminded nurse navigator can be contacted with any questions or concerns during the recovery process. * Leroy Sanchez MD - 11/24/2024 3:17 PM EST [facility] MEDICINE PROGRESS NOTE Assessment & Plan Principal Problem: Acute osteomyelitis of left calcaneus (HCC) (POA: Yes) Active Problems: HTN (hypertension) (POA: Yes) A-fib (HCC) (POA: Yes) PAD (peripheral artery disease) (POA: Yes) MERVIN on CPAP (POA: Yes) Diabetes (HCC) (POA: Yes) Stage 3a chronic kidney disease (CKD) (HCC) (POA: Yes) Hyperlipidemia (POA: Yes) Smoker (POA: Yes) Chronic diastolic congestive heart failure (HCC) (POA: Yes) Osteomyelitis (HCC) (POA: Yes) CKD (chronic kidney disease) (Chronic) (POA: Yes) Bacteremia (POA: Unknown) Presence of permanent cardiac pacemaker (POA: Unknown) Mitral valve vegetation (POA: Unknown) Mitral valve regurgitation (POA: Unknown) Resolved Problems: Brief Summary This is a 63-year-old male with past medical history of a flutter/A-fib s/p Watchman procedure, AV block s/p PPM, chronic diastolic heart failure, hypertension, hyperlipidemia, MERVIN on CPAP, CKD stageIII, PAD/PVD who presented as direct admit with plans for left 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 s/p calcaneal ostectomy on 08/2024 with wound VAC placement. Patient underwent left BKA on 11/05. Left foot wound grew MRSA, Enterococcus faecalis, VRE, chronic bacterium species and gram-negative bacilli. Hospital course further complicated with MRSA and VRE/Enterococcus faecalis/VCM bacteremia and cardiology was consulted. 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 He developed acute hypoxic respiratory failure secondary to CHF exacerbation and was transferred to medical stepdown unit for further management. In the stepdown, he was aggressively diuresed with Bumex drip and was weaned down on supplemental oxygen. He had a central line placed.EP consulted for possible infected pacer wire. O2 requirements improved and patient no longer requiring rescue BiPAP, satting well on 6LNC. MRI brain ordered to eval for septic emboli and patient reported tremor. Continued on diuresis. Initially held off on TATIANNA again due to anesthesia recommending more diuresis and optimizing respiratory status prior to procedure. ID discontinued aztreonam. Patient aggressively diuresed with large amount of urine output, CXR with improving bilateral congestion,proBNP downtrending, and O2 weaned to 3L NC. Patient went for TATIANNA in PM of 11/11 and was transferredto floor with telemetry after the procedure. On the medical floor, patient remains on IV antibiotic daptomycin, ceftaroline has been discontinued. MRI brain did not reveal any septic emboli. EP recommending pacemaker removal which she had on 11/17 with an implant of a AV Micra PM.. Echocardiogram showed EF of 45% which is similar to echo last year. For acute CHF, cardiology continued to follow and patient was continued on Bumex drip later switched to Bumex 1 Mg IV twice daily, further titrated down to p.o. Bumex 2 mg daily which she is stable on now. Nephrology also were consulted in the setting of TABITHA on CKD and they recommended resuming current management as his creatinine is going down close to his baseline. Pro line was placed on 11/19 as we were not able to place PICC line per nephrology recommendations. Plan to discharge on IV daptomycin and Rocephin till December 28 and repeat TATIANNA as outpatient to follow-up on endocarditis per IDrecommendations. ID recommendations: Daptomycin 975 mg IV every 24 hours through December 28, 2024 Ceftriaxone 2 gram IV every 24 hours through December 28, 2024 CBC, LFTs, creatinine with EGFR, CK, ESR, CRP once a week while on IV antibiotics. Fax results to [phone] 4. 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 PPM lead vegetation Left heel osteomyelitis s/p L BKA -ID, cardiology and EP following -PPM explanted on 11/17 with an implant of a AV Micra PM -Continue IV Rocephin and daptomycin; plan to keep until December 28 then repeat TATIANNA as outpatient at the end of November; discussed with ID -Pain management with scheduled tylenol, Robaxin, Lyrica -Pro line placed on 11/19 Acute conjunctivitis Start on erythromycin 4 times daily ointment for 5 days AHRF; resolved Acute on chronic CHFmrEF; LVEF 43% MERVIN on CPAP Hypertension -Hospital course was complicated with acute hypoxemic respiratory failure secondary to CHF exacerbation. -Echocardiogram showed EF of ~45 percent which is similar to echo last year. -Chest x-ray showed evidence of pulmonary edema. -Cardiology service was consulted. He received aggressive diuresis with IV Bumex. -His oxygen has been weaned down to room air. Patient denies any shortness of breath. -GDMT with Lopressor and Jardiance -Continue p.o. Bumex 2 mg daily -Continue amlodipine 5 mg daily -CPAP at night. -Night oximetry showing no oxygen needs overnight Atrial fibrillation s/p watchman AV block s/p PPM; explanted 11/17 -Patient was on anticoagulation until September 2024 which was eventually discontinued after his Watchman procedure and plan was to continue aspirin and amiodarone therapy. He he was originally scheduled to undergo ablation on 01/14/2025. -PPM explanted on 11/17 -Continue amiodarone 200 mg daily and Lopressor 50 mg twice daily. -Continue aspirin 81 mg daily -Cardiac monitoring -EP signed off TABITHA on CKD -Baseline creatinine around 1.4; currently 1.6 today -Creatinine peaked to 2.1; likely in the setting of infection and CHF exacerbation -S/p IV diuresis as above DM II -Continue Lantus 10 units daily. -Continue insulin sliding scale and Premeal insulin 3 units 3 times daily. -Holding home metformin and Jardiance -Hypoglycemia protocol Depression Tremors -Patient was previously experiencing bilateral upper and lower extremity tremors. This was discussed with neurology team and patient underwent MRI of the brain which did not show any acute abnormalities. -Neurology team recommended adjusting dose of Lyrica and Wellbutrin since these are new medications. -Continue Lyrica 100 mg 3 times daily Normocytic anemia -Counts stable -Likely nephrogenic DVT prophylaxis heparin CODE STATUS full code Quality Metrics DVT PROPHYLAXIS Risk Assessment Scores and Dates: VTE Time Out Orthopedics & NeuroSurgery VTE risk stratification: Standard or low risk (11/05/2024 12:44 PM)VTErisk low and NOT reassessed in last 5 days - Click here to document Chemical Prophylaxis heparin (porcine) 5000 unit/mL injection 5,000 Units Subcutaneous Every 8 hours scheduled Heparin Sodium (Porcine) 5000 Units Last dose 11/24/2024 8:16 AM Mechanical Prophylaxis SCDs are ordered - Bilateral (Knee High) Antibiotic Stewardship (Disclaimer : absence of data in section implies that patient is not on any antibiotics). ANTIBIOTIC TIME OUT Treatment Indication: Infective endocarditis Current antibiotic/day of therapy: Anti-infectives (From admission, onward) Start Dose/Rate Route Frequency Ordered Stop 11/24/24 0000 cefTRIAXone 2 g in sodium chloride-MBP 0.9% 100 mL IVPB 2 g Intravenous Every 24 hours 11/23/24 1633 12/28/24 2359 11/23/24 0000 sodium chloride 0.9 % SOLN 50 mL with DAPTOmycin 500 MG SOLR 975 mg 10 mg/kg ?? 97.3 kg (Adjusted) Intravenous Every 24 hours 11/23/24 1633 12/28/24 2359 11/18/24 1130 cefTRIAXone (ROCEPHIN) 2 g in sodium chloride-MBP (NS) 100 mL IVPB-MBP 2 g 200 mL/hr over 30 Minutes Intravenous Every 24 hours 11/18/24 1101 11/17/24 1400 ceFAZolin (ANCEF) 2 g in 20 mL SWFI syringe (premix) 2 g over 3 Minutes Intravenous Once 11/17/24 1351 11/18/24 0159 11/03/24 0900 DAPTOmycin (CUBICIN) 975 mg in sodium chloride (NS) 0.9 % 50 mL IVPB 10 mg/kg ?? 97.3 kg (Adjusted) 139 mL/hr over 30 Minutes Intravenous Every 24 hours 11/03/24 0849 Oral antibiotic transition date: December 28, 2024 Anticipated Stop date: December 28, 2024 Supportive Microbiology: Bacteria in the blood Expected Date of Discharge 11/24/2024 Subjective Chief complaint No chief complaint on file. Patient is being seen for acute medical problems and follow-up for chronic medical issues as mentioned in the assessment and plan above. Overnight Events/Patient Discussion: The patient was seen examined bedside. He is afebrile and hemodynamically stable. He is reporting discharge from the right eye. He denies any chest pain or shortness of breath patient has any nausea or vomiting. Objective Vitals: 11/23/24 0736 11/23/24 0852 11/23/24 1553 11/23/24 2105 BP: (!) 126/56 (!) 116/55 (!) 117/56 129/63 Pulse: 61 62 62 60 Resp: 18 18 18 Temp: (!) 96.3 ??F (35.7 ??C) 97.2 ??F (36.2 ??C) 97.6 ??F (36.4 ??C) SpO2: 92% 94% 94% 11/23/24 2130 11/24/24 0001 11/24/24 0810 11/24/24 0815 BP: (!) 103/51 (!) 117/58 (!) 107/53 Pulse: 60 64 62 60 Resp: 16 18 Temp: 97.8 ??F (36.6 ??C) (!) 96 ??F (35.6 ??C) SpO2: 93% 95% 97% Physical Exam Vitals and nursing note reviewed. Constitutional: Appearance: Normal appearance. HENT: Head: Normocephalic. Nose: Nose normal. Mouth/Throat: Mouth: Mucous membranes are moist. Eyes: Extraocular Movements: Extraocular movements intact. Conjunctiva/sclera: Conjunctivae normal. Pupils: Pupils are equal, round, and reactive to light. Cardiovascular: Rate and Rhythm: Normal rate and regular rhythm. Pulses: Normal pulses. Pulmonary: Effort: Pulmonary effort is normal. Breath sounds: Normal breath sounds. Abdominal: General: Abdomen is flat. Bowel sounds are normal. Palpations: Abdomen is soft. Musculoskeletal: Right lower leg: No edema. Left lower leg: No edema. Skin: Capillary Refill: Capillary refill takes less than 2 seconds. Neurological: General: No focal deficit present. Mental Status: He is alert and oriented to person, place, and time. Mental status is at baseline. Relevant data reviewed Results from last 7 days Lab Units 11/24/24 0656 WHITE BLOOD CELL COUNT Thou/uL 10.0 HEMOGLOBIN g/dL 9.0* HEMATOCRIT % 29.5* PLATELET COUNT Thou/uL 366 Results from last 7 days Lab Units 11/24/24 1137 11/24/24 0752 11/24/24 0656 SODIUM mmol/L -- -- 139 POTASSIUM mmol/L -- -- 3.8 CHLORIDE mmol/L -- -- 102 CO2 mmol/L -- -- 24 BUN mg/dL -- -- 35* CREATININE mg/dL -- -- 1.6* EGFR -- -- 48* GLUCOSE mg/dL -- -- 99 GLUCOSE, POC mg/dL 104* < > -- CALCIUM mg/dL -- -- 8.9 < > = values in this interval not displayed. Sign Leroy Sanchez MD 11/24/2024 3:17 PM * Juany Ospina RN - 11/24/2024 12:30 PM ESTSummary: Nurse Navigator Note Attempted to meet with patient again today. Upon arrival he had a prepared foods team leader in the room with him.Waited outside for 20 minutes before moving on to other patients. Will attempt to meet with patientagain later this week to review stoplight previously provided. * Ena Mtz MD - 11/24/2024 11:24 AM EST Images from the original note were not included. [facility] INFECTIOUS DISEASE Consult progress Note Name: Blas Genao Age: 63 y.o. 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 ID was consulted on 11/03-> recommended to start daptomycin/meropenem given prior history of MDRO's and follow cultures. 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 mitral valve endocarditis with small focal echodensity seen posterior to the mitral valve annulus and adjacent to Watchman device -Given the bacteremia, have to assume the watchman's device is infected -Discussed with EP watchman's device cannot be removed transvenously 3. acute hypoxic respiratory failure secondary to volume overload. Clinically improving, weaned to room air 4. Polymicrobial bacteremia: Source was left foot infection/ osteomyelitis; source control achievedwith left BKA on 11/05 -11/06 ,11/07,blood cultures = NGTD -11/04 (2/) bld cx:MRSA -11/02(10/31) blood cultures: MRSA, Enterococcus faecalis, Enterococcus faecium 4. Intermittent twitching of the hands, MRI of the brain showed no acute intercranial findings or suspicious intracranial lesions 5. H/O atrial fibrillation s/p Watchman device implantation in 2018 6.Right TMA with chronic wounds WBC: 10.0 platelets: 366 BUN/creatinine: 35/1.6 LFTs normal CK: 36 CRP:26.62>>4.88 ESR: 79>>62 Recommendations/Plan: -Remains in the hospital awaiting placement. Pleural line placed on 11/19 -tolerating daptomycin IV and ceftriaxone IV without any issues -Recommend repeat TATIANNA to evaluate for mitral valve focal echodensity adjacent to watchman's device towards the end of treatment. Discharge antibiotics: Daptomycin 975 mg IV every 24 hours through December 28, 2024 Ceftriaxone 2 gram IV every 24 hours through December 28, 2024 CBC, LFTs, creatinine with EGFR, CK, ESR, CRP once a week while on IV antibiotics. Fax results to [phone] 4. Patient will need to be scheduled for repeat TATIANNA end of November. Patient would like to get this done at [facility] He can follow-up with me on 12/16/2024 at 8:30 AM Current antibiotic/day of therapy: Anti-infectives (From admission, onward) Start Dose/Rate Route Frequency Ordered Stop 11/24/24 0000 cefTRIAXone 2 g in sodium chloride-MBP 0.9% 100 mL IVPB 2 g Intravenous Every 24 hours 11/23/24 1633 12/28/24 2359 11/23/24 0000 sodium chloride 0.9 % SOLN 50 mL with DAPTOmycin 500 MG SOLR 975 mg 10 mg/kg ?? 97.3 kg (Adjusted) Intravenous Every 24 hours 11/23/24 1633 12/28/24 2359 11/18/24 1130 cefTRIAXone (ROCEPHIN) 2 g in sodium chloride-MBP (NS) 100 mL IVPB-MBP 2 g 200 mL/hr over 30 Minutes Intravenous Every 24 hours 11/18/24 1101 11/17/24 1400 ceFAZolin (ANCEF) 2 g in 20 mL SWFI syringe (premix) 2 g over 3 Minutes Intravenous Once 11/17/24 1351 11/18/24 0159 11/03/24 0900 DAPTOmycin (CUBICIN) 975 mg in sodium chloride (NS) 0.9 % 50 mL IVPB 10 mg/kg ?? 97.3 kg (Adjusted) 139 mL/hr over 30 Minutes Intravenous Every 24 hours 11/03/24 0849 Sign Ena Mtz MD, FACP, CWSP [facility] Infectious Diseases Available via [employer] SUBJECTIVE Remains in the hospital awaiting placement CURRENT MEDICATIONS: Reviewed OBJECTIVE PHYSICAL EXAMINATION: Vitals: 11/24/24 0001 11/24/24 0600 11/24/24 0810 11/24/24 0815 BP: (!) 103/51 (!) 117/58 (!) 107/53 BP Location: Left arm Left arm Left arm Patient Position: Lying Lying Lying Pulse: 64 62 60 Resp: 16 18 Temp: 97.8 ??F (36.6 ??C) (!) 96 ??F (35.6 ??C) TempSrc: Tympanic Tympanic SpO2: 95% 97% Weight: 98.3 kg (216 lb 11.4 oz) Height: Intake/Output Summary (Last 24 hours) at 11/24/2024 1124 Last data filed at 11/24/2024 1020 Gross per 24 hour Intake 550 ml Output 1875 ml Net -1325 ml General appearance- NAD Extremities-left BKA Right chest proline catheter DEVICE TIME OUT Tunneled Central Line - Double Lumen (Adult) 11/19/24 1417 internal jugular vein, right length (specify) (Active) Number of days: 5 Of note, some information is being carried forward from prior records for informational purposes only and is being cited so that efficiency, safety and quality of this patient's care is not compromised. This report was generated using [employer] dictation software. Although every attempt has been made by the provider to proofread this document, occasional misspellings and typographical errors may still be present. * Gianluca Calles MD - 11/23/2024 3:06 PM EST [facility] MEDICINE PROGRESS NOTE Assessment & Plan Principal Problem: Acute osteomyelitis of left calcaneus (HCC) (POA: Yes) Active Problems: HTN (hypertension) (POA: Yes) A-fib (HCC) (POA: Yes) PAD (peripheral artery disease) (POA: Yes) MERVIN on CPAP (POA: Yes) Diabetes (HCC) (POA: Yes) Stage 3a chronic kidney disease (CKD) (HCC) (POA: Yes) Hyperlipidemia (POA: Yes) Smoker (POA: Yes) Chronic diastolic congestive heart failure (HCC) (POA: Yes) Osteomyelitis (HCC) (POA: Yes) CKD (chronic kidney disease) (Chronic) (POA: Yes) Bacteremia (POA: Unknown) Presence of permanent cardiac pacemaker (POA: Unknown) Mitral valve vegetation (POA: Unknown) Mitral valve regurgitation (POA: Unknown) Resolved Problems: Brief Summary 63 year old male with past medical history of atrial flutter, AV Block, CHFpEF, hypertension, HLD, CKD, PAD and DMII who presented to the hospital for left BKA however his post op coarse was complicated with bacteremia, endocarditis and CHF exacerbation. Patient was originally admitted to the hospital on 11/05 for BKA given chronic left calcaneal polymicrobial osteomyelitis. Unfortunately his hospital course got complicated with MRSA, Enterococcus faecium/faecalis bacteremia. He subsequently underwent a TATIANNA that showed a mobile echodensity posterior to mitral valve annulus adjacent to Watchman device. He has received various antibiotics including ceftaroline, meropenem, aztreonam and is now ma intained on daptomycin monotherapy. 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 Well controlled at this time -Pro line placed on 11/19 AHRF; resolved Acute on chronic CHFmrEF; LVEF 43% MERVIN on CPAP Hypertension -Hospital course was complicated with acute hypoxemic respiratory failure secondary to CHF exacerbation. -Echocardiogram showed EF of ~45 percent which is similar to echo last year. -Chest x-ray showed evidence of pulmonary edema. -Cardiology service was consulted. He received aggressive diuresis with IV Bumex. -His oxygen has been weaned down to room air. Patient denies any shortness of breath. -GDMT with Lopressor and Jardiance -Continue p.o. Bumex 2 mg daily -Continue amlodipine 5 mg daily -CPAP at night. Using it with supplemental oxygen -Night oximetry showing no oxygen needs overnight Atrial fibrillation s/p watchman AV block s/p PPM; explanted 11/17 -Patient was on anticoagulation until September 2024 which was eventually discontinued after his Watchman procedure and plan was to continue aspirin and amiodarone therapy. He he was originally scheduled to undergo ablation on 01/14/2025. -PPM explanted on 11/17 -Continue amiodarone 200 mg daily and Lopressor 50 mg twice daily. -Continue aspirin 81 mg daily -Cardiac monitoring -EP signed off TABITHA on CKD -Baseline creatinine around 1.4; currently 1.5 today -Creatinine peaked to 2.1; likely in the setting of infection and CHF exacerbation -S/p IV diuresis as above -Daily BMP DM II -Continue Lantus 10 units daily. -Continue insulin sliding scale and Premeal insulin 3 units 3 times daily. -Holding home metformin and Jardiance -Hypoglycemia protocol Depression Tremors -Patient was previously experiencing bilateral upper and lower extremity tremors. This was discussed with neurology team and patient underwent MRI of the brain which did not show any acute abnormalities. -Neurology team recommended adjusting dose of Lyrica and Wellbutrin since these are new medications. -Continue Lyrica 100 mg 3 times daily Normocytic anemia -Counts stable -Likely nephrogenic -Daily CBC Dispo: Pending placement Quality Metrics DVT PROPHYLAXIS Risk Assessment Scores and Dates: VTE Time Out Orthopedics & NeuroSurgery VTE risk stratification: Standard or low risk (11/05/2024 12:44 PM)VTErisk low and NOT reassessed in last 5 days - Click here to document Chemical Prophylaxis heparin (porcine) 5000 unit/mL injection 5,000 Units Subcutaneous Every 8 hours scheduled Heparin Sodium (Porcine) 5000 Units Last dose 11/23/2024 9:01 AM Mechanical Prophylaxis SCDs are ordered - Bilateral (Knee High) Antibiotic Stewardship (Disclaimer : absence of data in section implies that patient is not on any antibiotics). ANTIBIOTIC TIME OUT Treatment Indication: Bacteremia/endocarditis Current antibiotic/day of therapy: Anti-infectives (From admission, onward) Start Dose/Rate Route Frequency Ordered Stop 11/18/24 1130 cefTRIAXone (ROCEPHIN) 2 g in sodium chloride-MBP (NS) 100 mL IVPB-MBP 2 g 200 mL/hr over 30 Minutes Intravenous Every 24 hours 11/18/24 1101 11/17/24 1400 ceFAZolin (ANCEF) 2 g in 20 mL SWFI syringe (premix) 2 g over 3 Minutes Intravenous Once 11/17/24 1351 11/18/24 0159 11/03/24 0900 DAPTOmycin (CUBICIN) 975 mg in sodium chloride (NS) 0.9 % 50 mL IVPB 10 mg/kg ?? 97.3 kg (Adjusted) 139 mL/hr over 30 Minutes Intravenous Every 24 hours 11/03/24 0849 Subjective Chief complaint No chief complaint on file. Patient is being seen for acute medical problems and follow-up for chronic medical issues as mentioned in the assessment and plan above. Overnight Events/Patient Discussion: Patient was seen and examined today. No acute events overnight. Sitting comfortably in chair at bedside. No current complaints or concerns. No chest pain or shortness of breath. Objective Vitals: 11/22/24 1550 11/22/24 2000 11/22/24 2130 11/22/24 2248 BP: (!) 107/53 131/68 127/59 Pulse: (!) 57 60 60 60 Resp: 18 18 Temp: 98.1 ??F (36.7 ??C) 97.5 ??F (36.4 ??C) SpO2: 98% 94% 96% 11/22/24 2326 11/23/24 0026 11/23/24 0736 11/23/24 0852 BP: (!) 126/56 (!) 116/55 Pulse: 62 64 61 62 Resp: 18 18 Temp: 97.5 ??F (36.4 ??C) (!) 96.3 ??F (35.7 ??C) SpO2: 92% 92% 92% Physical Exam Constitutional: Appearance: Normal appearance. HENT: Head: Normocephalic and atraumatic. Cardiovascular: Rate and Rhythm: Normal rate and regular rhythm. Pulses: Normal pulses. Heart sounds: Normal heart sounds. Pulmonary: Effort: Pulmonary effort is normal. Breath sounds: Normal breath sounds. No wheezing or rales. Abdominal: General: Abdomen is flat. There is no distension. Palpations: Abdomen is soft. Tenderness: There is no abdominal tenderness. Musculoskeletal: Right lower leg: No edema. Comments: Left BKA Neurological: General: No focal deficit present. Mental Status: He is alert and oriented to person, place, and time. Physical exam unchanged Relevant data reviewed Results from last 7 days Lab Units 11/23/24 0643 WHITE BLOOD CELL COUNT Thou/uL 10.8 HEMOGLOBIN g/dL 8.7* HEMATOCRIT % 28.3* PLATELET COUNT Thou/uL 353 Results from last 7 days Lab Units 11/23/24 1135 11/23/24 0734 11/23/24 0643 SODIUM mmol/L -- -- 140 POTASSIUM mmol/L -- -- 4.0 CHLORIDE mmol/L -- -- 104 CO2 mmol/L -- -- 25 BUN mg/dL -- -- 31* CREATININE mg/dL -- -- 1.5* EGFR -- -- 52* GLUCOSE mg/dL -- -- 114* GLUCOSE, POC mg/dL 151* < > -- CALCIUM mg/dL -- -- 9.0 < > = values in this interval not displayed. Sign Gianluca Calles MD 11/23/2024 3:06 PM * Milan Vale, BUSINESS QUALITY ASSURANCE ANALYST - 11/23/2024 2:03 PM EST Physical Therapy Progress Note Precautions/Restrictions: (P) aspiration, fall, other (see comments) (skin) Assessment Summary: Pt seen for therapy with focus on sit to stand transfers and ambulation. Progressed to CGAfor sit to stand and ambulation up to 8' with RW. Muscle fatigue and balance continue to be limiting factors. Pt is a great rehab candidate and will benefit from intensive skilled therapy at next level of care. Progress Towards Goals: (P) progress toward functional goals is good Outcome Measures: The Activity Measure for Post-Acute Care (AM-PAC) Basic Mobility Inpatient Short Form (6-clicks) zakiya standardized measure used to quantify functional deficits in mobility. The total score of the measure ranges from 6-24. A higher score indicates a higher level of independence with functional mobility. Current [facility] Basic Mobility Score: (P) 18 Rehab Plan of Care PT will continue to work with patient while in house to address decreased strength, balance and functional capacity. PT Recommendations for Staff: (P) A x1 for SPT and short hop distance with RW. Recliner or EOB for meals. Egress PT Frequency during Hospitalization: (P) 2-3 times/wk Plan of Care Reviewed With: (P) patient Objective Data/Intervention Transfers Assessment/Intervention: Sit to stand training from bedside chair, Pt able to stand with CGA x 5 Improvements noted in initial standing balance and sequencing for weight shift to improve balance throughout transfer. Pt will require further therapy to improve to I level Gait/Stair Assessment/Intervention: Pt hopped with RW and CGA 8' x 3. No LOB slow methodical sequencing throughout. Activity Tolerance/Endurance Assessment/Intervention: Fair Subjective (P) tell the ladies to get their dollars ready Flowsheet Data 11/23/24 1243 Physical Therapy Time and Intention PT Follow-Up Visit follow up treatment Mode of Treatment physical therapy Patient Effort good Symptoms Noted During/After Treatment none General Information Patient Profile Reviewed yes Patient/Family/Caregiver Comments/Observations tell the ladies to get their dollars ready General Observations of Patient Pt up in chair upon arrival, RN in room. Ampdella and coil winder repair inplace. Both agreeable for tx Existing Precautions/Restrictions aspiration;fall;other (see comments) (skin) Pain Scale: Numbers Pre/Post-Treatment Pretreatment Pain Rating 0/10 - no pain Posttreatment Pain Rating 0/10 - no pain Coping Trust Relationship/Rapport care explained Observed Emotional State calm;cooperative Verbalized Emotional State acceptance;hopefulness Family/Support Persons patient Involvement in Care participating in care Plan of Care Review Plan of Care Reviewed With patient Safety Safety WDL WDL All Alarms alarm(s) activated and audible Enhanced Safety Measures bed alarm set Isolation Precautions contact;precautions maintained Progressive Mobility Progressive Mobility Level Achieved Ambulation [facility] Basic Mobility Turning from your back to your side while in a flat bed without using bedrails? 4 Moving from lying on your back to sitting on the side of a flat bed without using bedrails? 4 Moving to and from a bed to a chair (including wheelchair)? 3 Standing up from a chair using your arms? 3 To walk in a hospital room? 3 Climbing 3-5 steps with a railing? 1 [facility] Basic Mobility Score 18 Therapy Assessment/Plan (PT) Patient/Family Therapy Goals Statement (PT) TO GET HOME Rehab Potential (PT) good Therapy Frequency (PT) 2-3 times/wk PT Recommendations for Staff A x1 for SPT and short hop distance with RW. Recliner or EOB for meals. Egress Progress Summary (PT) Progress Toward Functional Goals (PT) progress toward functional goals is good Sign: Milan Vale PTA * Sharon Rockwell RRT - 11/23/2024 7:24 AM EST Nocturnal Oximetry Report Patient Name BLAS GENAO 1960 Patient Study Completed On: 11/23/24 +++TEST RESULTS VALID ONLY FOR 48 HOURS POST COMPLETION DATE+++ Minutes of SpO2 < 88% recorded: 0 minutes Minimum SpO2%: 88 Results downloaded by RT?: yes Patient Qualifies for nocturnal oxygen?: no Suggest formal outpatient PSG?: no Suggest ambulatory oximetry?: no Sharon Rockwell RRT 11/23/2024 7:24 AM * Isabel Lee PA-C - 11/23/2024 7:24 AM EST Images from the original note were not included. Nephrology Progress Note Blas Genao Date 11/23/2024 Assessment & Plan Mr. 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 Hospital course complicated by: - nonhealing left lower extremity ulcer and is now status left BKA. 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 Followed chronically by Dr Lopez in [place] Cr peak this admission 2.1mg/dL in the setting of bacteremia and endocarditis. 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 Overall suggesting a hemodynamic renal injury improved with aggressive diuresis Net -27L Cr downtrended with diuretic holiday. 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 Hyponatremia, resolved Hypovolemic Hyponatremia, improved after diuretic holiday Plan: - Continue bumex 2mg PO daily. The nephrology team will sign off. Please call with any questions or concerns. Subjective Notable Events: No acute overnight events. Patient is feeling well. Hopeful for d/c soon. Review of Systems Constitutional: negative, no fever Eyes: negative, no vision changes Ears, nose, mouth, throat, and face: negative Respiratory: negative, no SOB currently. Cardiovascular: negative, no C/P now. Gastrointestinal: negative, no abd pain Genitourinary:negative, no dysuria Hematologic/lymphatic: negative Musculoskeletal:negative, no joint pains currently Neurological: negative, No JOY now Behavioral/Psych: negative Endocrine: negative Remainder of ROS negative but for that detailed above. Objective Physical Exam Vitals: 11/22/24 2248 11/22/24 2326 11/23/24 0026 11/23/24 0511 BP: 127/59 BP Location: Left arm Patient Position: Lying Pulse: 60 62 64 Resp: 18 Temp: 97.5 ??F (36.4 ??C) TempSrc: Tympanic SpO2: 92% 92% Weight: 98.6 kg (217 lb 6 oz) Height: Weight Trend: Wt Readings from Last 3 Encounters: 11/23/24 98.6 kg (217 lb 6 oz) 09/02/24 104 kg (230 lb) 09/03/24 102 kg (224 lb 3.2 oz) I/O Last 3 Shifts: I/O last 3 completed shifts: In: 1283 [P.O.:1200; I.V.:83] Out: 4800 [Urine:4800] General appearance: Comfortable appearing Lungs: clear to auscultation bilaterally Heart: regular rate and rhythm, S1, S2 normal, no rub Abdomen: soft, non-tender; bowel sounds normal Extremities: Left BKA. Right TMA Edema: None Neurologic: Grossly normal, no asterixis. Relevant data reviewed Notable labs are: Recent Labs 11/21/24 0658 11/22/24 0731 11/23/24 0643 NA 136 137 140 K 3.7 4.2 4.0 CO2 27 27 25 ANIONGAP 10 9 11 CL 99 101 104 BUN 38* 36* 31* CREAT 1.8* 1.6* 1.5* EGFR 42* 48* 52* CALCIUM 8.8 8.8 9.0 MG 2.1 2.0 2.2 Recent Labs 11/21/24 0658 11/22/24 0731 11/23/24 0643 WBC 14.0* 12.1* 10.8 HGB 8.2* 8.1* 8.7* HCT 26.7* 26.2* 28.3* PLT 329 333 353 Results from last 7 days Lab Units 11/19/24 1600 CREATININE, URINE, RANDOM mg/dL 31 Lab Results Component Value Date PROBNP 429 (H) 11/15/2024 PROBNP 994 (H) 11/13/2024 Lab Results Component Value Date ALBUMIN 2.9 (L) 11/17/2024 ALBUMIN 2.6 (L) 11/11/2024 No results found for: TACROLIMUS No results found for: YHNSA12XOMC , TOTVOL , CRCLR , PERIOD No results found for: IRON , TIBC , IRONSAT , UIBC Lab Results Component Value Date BILITOT 0.2 11/17/2024 AST 24 11/17/2024 Medications Medication/MAR Report: Medications Scheduled Medication Ordered Dose/Rate, Route, Frequency Last Action amiODARONE (PACERONE) tablet 200 mg 200 mg, PO, Daily Given, 200 mg at 11/22 08 amLODIPine (NORVASC) tablet 5 mg 5 mg, PO, Daily Given, 5 mg at 11/22 08 aspirin enteric coated (ECOTRIN LOW STRENGTH) tablet 81 mg 81 mg, PO, Daily Given, 81 mg at 11/22 1417 bumetanide (BUMEX) tablet 2 mg 2 mg, PO, Daily Given, 2 mg at 11/22 0821 buPROPion (WELLBUTRIN SR) 12 hr tablet 150 mg 150 mg, PO, BID Given, 150 mg at 11/22 2250 calcium citrate (CALCITRATE) tablet 950 mg 950 mg, PO, BID with meals Given, 950 mg at 11/22 1740 cefTRIAXone (ROCEPHIN) 2 g in sodium chloride-MBP (NS) 100 mL IVPB-MBP 2 g, IV, Q24H New Bag, 2 g at 11/22 1143 chlorhexidine gluconate 2 % wipes - urethral catheter CHG application No Dose/Rate, TOP, Daily Given, 1 each at 11/22 1147 cholecalciferol tablet 2,000 Units 2,000 Units, PO, Daily Given, 2,000 Units at 11/22 821 cyanocobalamin (VITAMIN B-12) tablet 2,500 mcg 2,500 mcg, PO, Daily Given, 2,500 mcg at 11/22 819 DAPTOmycin (CUBICIN) 975 mg in sodium chloride (NS) 0.9 % 50 mL IVPB 10 mg/kg, IV, Q24H New Bag, 975 mg at 11/22 1416 donepezil (ARICEPT) tablet 10 mg 10 mg, PO, QAM Given, 10 mg at 11/22 820 empagliflozin (JARDIANCE) 25 mg 25 mg, PO, Daily Given, 25 mg at 11/22 821 folic acid (FOLVITE) tablet 1 mg 1 mg, PO, Daily Given, 1 mg at 11/22 820 glimepiride (AMARYL) tablet 2 mg 2 mg, PO, Daily with breakfast Given, 2 mg at 11/22 821 heparin (porcine) 5000 unit/mL injection 5,000 Units 5,000 Units, SC, Q8H JUDSON Given, 5,000 Units at 11/230 insulin glargine (LANtus/SEMGLEE) 100 units/mL injection 10 Units 10 Units, SC, Daily Given, 10 Units at 11/22 822 insulin lispro (HumaLOG/ADMELOG) 100 units/mL injection 1-6 Units 1-6 Units, SC, TID with meals Given, 1 Units at 11/22 1218 insulin lispro (HumaLOG/ADMELOG) 100 units/mL injection 3 Units 3 Units, SC, TID with meals Given, 3 Units at 11/22 1739 methocarbamol (ROBAXIN) tablet 1,000 mg 1,000 mg, PO, 4x Daily Given, 1,000 mg at 11/22 2249 metoPROLOL TARTRATE (LOPRESSOR) tablet 50 mg 50 mg, PO, BID Given, 50 mg at 11/22 2249 multivitamin with minerals tablet 1 tablet 1 tablet, PO, Daily Given, 1 tablet at 11/22 820 nicotine (NICODERM CQ) 21 MG/24HR patch 1 patch 1 patch, TD, Daily Patch Applied, 1 patch at 11/22 823 PANTOprazole (PROTONIX) EC tablet 40 mg 40 mg, PO, Daily Given, 40 mg at 11/22 820 polyethylene glycol (miraLAx) packet 17 g 17 g, PO, Daily Given, 17 g at 11/22 821 [Provider Held] pravastatin (PRAVACHOL) tablet 20 mg On hold since Fri11/03/2024 at 0850 until manually unheld; held by Gayle Rose Reason: Other - Comment requiredHold Comments: While on IV daptomycin On hold since Fri11/03/2024 at 0850 until manually unheld (Needs Review) Hold reason: Other - Comment required, Hold comment: While on IV daptomycin 20 mg, PO, Daily Ordered pregabalin (LYRICA) capsule 100 mg 100 mg, PO, TID Given, 100 mg at 11/22 2249 senna-docusate (SENNA-S) 8.6-50 MG tablet 2 tablet 2 tablet, PO, BID Given, 2 tablet at 11/22 2249 thiamine mononitrate (VITAMIN B-1) tablet 200 mg 200 mg, PO, Daily Given, 200 mg at 11/22 820 PRN Medication Ordered Dose/Rate, Route, Frequency Last Action acetaminophen (TYLENOL) tablet 975 mg 975 mg, PO, Q6H PRN Ordered benzocaine-menthol (CHLORASEPTIC) 6-10 MG lozenge 1 lozenge 1 lozenge, MT, Q2H PRN Ordered bisacodyl (DULCOLAX) suppository 10 mg 10 mg, RE, Daily PRN Ordered calcium carbonate (TUMS) chewable tablet 1,000 mg 1,000 mg, PO, Q12H PRN Ordered carboxymethylcellulose (REFRESH PLUS) 0.5 % ophthalmic solution 2 drop 2 drop, Each Eye, Q2H PRN Ordered ipratropium-albuterol (DUONEB) 0.5-2.5 mg/3 mL nebulizer solution 3 mL 3 mL, NEBULIZATION, Q2H PRN Given, 3 mL at 11/07 102 lactulose (ENULOSE) 10 gm/15 mL solution 20 g 20 g, PO, Q4H PRN Ordered melatonin tablet 3 mg 3 mg, PO, Nightly PRN Given, 3 mg at 11/19 2221 naloxone (NARCAN) 0.4 mg/mL injection 0.4 mg 0.4 mg, IV, Q5 Min PRN Ordered naloxone (NARCAN) 0.4 mg/mL injection 0.4 mg 0.4 mg, IV, Q5 Min PRN Ordered ondansetron (ZOFRAN) injection 4 mg 4 mg, IV, Q6H PRN Given, 4 mg at 11/17 1639 Sign: Isabel Lee PA-C 11/23/2024 7:24 AM [facility] Nephrology Office [phone] Associated attestation - Anmol Reynoso MD - 11/23/2024 2:54 PM EST ATTESTATION: I personally saw the patient and performed the more substantive portion of the visit including all aspects of the medical decision-making. I finalized and decided upon the management plan as listed by the advanced practice provider for the total number and complexity of problems addressed at the encounter. I take responsibility for that plan with its inherent risk of complications and/or morbidity or mortality of patient management. I additionally reviewed the providers findings incident to their encounter. My note reflects my personal findings on my history and exam. In Summary: -Patient doing well with p.o. 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 Sign: Anmol Reynoso MD 11/23/2024 2:54 PM * Luz Escobedo RN - 11/22/2024 2:40 PM EST Attached media from the original note were not included. Micra AV leadless Pacemaker evaluation completed on B10E. Per patient request and verbal order SharronSHUBHAM Pitts: LRL increased from 50 bpm to 60 bpm. Presenting rhythm: AM/STOKER INSTALLATION MECHANIC @ 62 bpm. Underlying rhythm: CHB. AM/STOKER INSTALLATION MECHANIC pacing 81%, with total V-pacing 100%. Battery and testing results evaluated and within normal limits. Normal leadless pacemaker function. JOSUE Alvarenga * Gianluca Calles MD - 11/22/2024 12:20 PM EST HOSPITAL MEDICINE PROGRESS NOTE Assessment & Plan Principal Problem: Acute osteomyelitis of left calcaneus (HCC) (POA: Yes) Active Problems: HTN (hypertension) (POA: Yes) A-fib (HCC) (POA: Yes) PAD (peripheral artery disease) (POA: Yes) MERVIN on CPAP (POA: Yes) Diabetes (HCC) (POA: Yes) Stage 3a chronic kidney disease (CKD) (HCC) (POA: Yes) Hyperlipidemia (POA: Yes) Smoker (POA: Yes) Chronic diastolic congestive heart failure (HCC) (POA: Yes) Osteomyelitis (HCC) (POA: Yes) CKD (chronic kidney disease) (Chronic) (POA: Yes) Bacteremia (POA: Unknown) Presence of permanent cardiac pacemaker (POA: Unknown) Mitral valve vegetation (POA: Unknown) Mitral valve regurgitation (POA: Unknown) Resolved Problems: Brief Summary 63 year old male with past medical history of atrial flutter, AV Block, CHFpEF, hypertension, HLD, CKD, PAD and DMII who presented to the hospital for left BKA however his post op coarse was complicated with bacteremia, endocarditis and CHF exacerbation. Patient was originally admitted to the hospital on 11/05 for BKA given chronic left calcaneal polymicrobial osteomyelitis. Unfortunately his hospital course got complicated with MRSA, Enterococcus faecium/faecalis bacteremia. He subsequently underwent a TATIANNA that showed a mobile echodensity posterior to mitral valve annulus adjacent to Watchman device. He has received various antibiotics including ceftaroline, meropenem, aztreonam and is now ma intained on daptomycin monotherapy. 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 Well controlled at this time AHRF; resolved Acute on chronic CHFmrEF; LVEF 43% MERVIN on CPAP Hypertension -Hospital course was complicated with acute hypoxemic respiratory failure secondary to CHF exacerbation. -Echocardiogram showed EF of ~45 percent which is similar to echo last year. -Chest x-ray showed evidence of pulmonary edema. -Cardiology service was consulted. He received aggressive diuresis with IV Bumex. -His oxygen has been weaned down to room air. Patient denies any shortness of breath. -GDMT with Lopressor and Jardiance -Continue p.o. Bumex 2 mg daily -Continue amlodipine 5 mg daily -CPAP at night. Using it with supplemental oxygen -Night oximetry ordered before discharge Atrial fibrillation s/p watchman AV block s/p PPM; explanted 11/17 -Patient was on anticoagulation until September 2024 which was eventually discontinued after his Watchman procedure and plan was to continue aspirin and amiodarone therapy. He he was originally scheduled to undergo ablation on 01/14/2025. -PPM explanted on 11/17 -Continue amiodarone 200 mg daily and Lopressor 50 mg twice daily. -Start aspirin 81 mg daily as he is done with all procedures -Cardiac monitoring -EP signed off TABITHA on CKD -Baseline creatinine around 1.4; currently 1.6 today -Creatinine peaked to 2.1; likely in the setting of infection and CHF exacerbation -S/p IV diuresis as above -Daily BMP DM II -Continue Lantus 10 units daily. -Continue insulin sliding scale and Premeal insulin 3 units 3 times daily. -Holding home metformin and Jardiance -Hypoglycemia protocol Depression Tremors -Patient was previously experiencing bilateral upper and lower extremity tremors. This was discussed with neurology team and patient underwent MRI of the brain which did not show any acute abnormalities. -Neurology team recommended adjusting dose of Lyrica and Wellbutrin since these are new medications. -Decreased Lyrica to 100 mg 3 times daily Normocytic anemia -Counts stable -Likely nephrogenic -Daily CBC Dispo: Pending placement and night oximetry (on IV antibiotics) Quality Metrics DVT PROPHYLAXIS Risk Assessment Scores and Dates: VTE Time Out Orthopedics & NeuroSurgery VTE risk stratification: Standard or low risk (11/05/2024 12:44 PM)VTErisk low and NOT reassessed in last 5 days - Click here to document Chemical Prophylaxis heparin (porcine) 5000 unit/mL injection 5,000 Units Subcutaneous Every 8 hours scheduled Heparin Sodium (Porcine) 5000 Units Last dose 11/22/2024 8:22 AM Mechanical Prophylaxis SCDs are ordered - Bilateral (Knee High) Antibiotic Stewardship (Disclaimer : absence of data in section implies that patient is not on any antibiotics). ANTIBIOTIC TIME OUT Treatment Indication: Bacteremia/endocarditis Current antibiotic/day of therapy: Anti-infectives (From admission, onward) Start Dose/Rate Route Frequency Ordered Stop 11/18/24 1130 cefTRIAXone (ROCEPHIN) 2 g in sodium chloride-MBP (NS) 100 mL IVPB-MBP 2 g 200 mL/hr over 30 Minutes Intravenous Every 24 hours 11/18/24 1101 11/17/24 1400 ceFAZolin (ANCEF) 2 g in 20 mL SWFI syringe (premix) 2 g over 3 Minutes Intravenous Once 11/17/24 1351 11/18/24 0159 11/03/24 0900 DAPTOmycin (CUBICIN) 975 mg in sodium chloride (NS) 0.9 % 50 mL IVPB 10 mg/kg ?? 97.3 kg (Adjusted) 139 mL/hr over 30 Minutes Intravenous Every 24 hours 11/03/24 0849 Subjective Chief complaint No chief complaint on file. Patient is being seen for acute medical problems and follow-up for chronic medical issues as mentioned in the assessment and plan above. Overnight Events/Patient Discussion: Patient was seen and examined today. No acute events overnight. Resting comfortably in bed. He is concerned about his heart rate drop overnight when he is asleep down to 40s and requesting if his rates can be adjusted back to same rates when he had the pacemaker. No chest pain or shortness of breath Objective Vitals: 11/21/24 1150 11/21/24 1615 11/21/24199911/21/24 2148 BP: (!) 111/51 (!) 109/56 (!) 124/55 (!) 127/54 Pulse: (!) 50 (!) 52 (!) 57 (!) 58 Resp: 18 18 18 Temp: 97.4 ??F (36.3 ??C) 97.4 ??F (36.3 ??C) 98.3 ??F (36.8 ??C) SpO2: 95% 96% 95% 11/21/24 2357 11/22/24 0045 11/22/24 0421 11/22/24 0737 BP: 121/60 (!) 107/48 (!) 112/52 Pulse: (!) 53 (!) 59 (!) 55 (!) 53 Resp: 18 18 18 Temp: 97 ??F (36.1 ??C) 97.8 ??F (36.6 ??C) 97.5 ??F (36.4 ??C) SpO2: 93% 94% 92% 92% Physical Exam Constitutional: Appearance: Normal appearance. HENT: Head: Normocephalic and atraumatic. Cardiovascular: Rate and Rhythm: Normal rate and regular rhythm. Pulses: Normal pulses. Heart sounds: Normal heart sounds. Pulmonary: Effort: Pulmonary effort is normal. Breath sounds: Normal breath sounds. No wheezing or rales. Abdominal: General: Abdomen is flat. There is no distension. Palpations: Abdomen is soft. Tenderness: There is no abdominal tenderness. Musculoskeletal: Right lower leg: No edema. Comments: Left BKA Neurological: General: No focal deficit present. Mental Status: He is alert and oriented to person, place, and time. Relevant data reviewed Results from last 7 days Lab Units 11/22/24 0731 WHITE BLOOD CELL COUNT Thou/uL 12.1* HEMOGLOBIN g/dL 8.1* HEMATOCRIT % 26.2* PLATELET COUNT Thou/uL 333 Results from last 7 days Lab Units 11/22/24 1136 11/22/24 0735 11/22/24 0731 SODIUM mmol/L -- -- 137 POTASSIUM mmol/L -- -- 4.2 CHLORIDE mmol/L -- -- 101 CO2 mmol/L -- -- 27 BUN mg/dL -- -- 36* CREATININE mg/dL -- -- 1.6* EGFR -- -- 48* GLUCOSE mg/dL -- -- 178* GLUCOSE, POC mg/dL 174* < > -- CALCIUM mg/dL -- -- 8.8 < > = values in this interval not displayed. Sign Gianluca Calles MD 11/22/2024 12:20 PM * Christen Adkins Willie, OT - 11/22/2024 10:01 AM EST Occupational Therapy Progress Note Assessment & Progress Summary: Pt seen for f/u OT txYeny Segovia continues to demonstrate progress with transfers, short distance ambulation, and dynamic ADLs as detailed below. Patient is highly motivated and demonstrates excellent rehab potential. Patient would benefit from an intensive multidisciplinary therapy approach (3hr/day) at next level of care in order to progresspatient towards their previously independent baseline and facilitate eventual discharge home. If transitioning home, pt would require ramp entry, 1st floor set-up, w/c for distances, RW + AX1 for transfers, daily ADL/IADL assist, and home OT services. Progress Towards Goals: progress toward functional goals is good Outcome Measures: The Activity Measure for Post-Acute Care (AM-PAC) Daily Activity Inpatient Short Form (6-clicks) zakiya standardized measure used to quantify deficits in self-care. The total score of the measure ranges from 6-24. A higher score indicates a higher level of independence with self-care tasks. Current [facility] Daily Activity Score: 16 Precautions/Restrictions: aspiration, fall, isolation: contact, other (see comments), weight bearing (Skin) Rehab Plan of Care Pt remains functioning below his baseline and would benefit from continued OT services 2-3x/week while hospitalized to address deficits in strength, balance, endurance, and functional activity tolerance in order to maximize functional independence with ADL/IADL and mobility. Plan to follow up for wheelchair mobility, education, + practice in upcoming sessions. OT Recommendations for Staff: AX1 SPT chair/commode with RW, OOB for meals, encourage participationwith ADLs OT Frequency during Hospitalization: 2-3 times/wk Progressive Mobility Level: Level 5 Plan of Care Reviewed With: care plan/treatment goals reviewed, patient, participants voiced agreement with care plan Education: OT role, POC, and recommendations, ADL and mobility techniques, amputee education Treatment Interventions/Objective Data Interventions to Optimize ADL Performance Dressing: min A to don (R) sock via figure-4, increased assist to don/doff (L)LE limb protector Toileting: increased assist for clothing management + hygiene d/t need for BUE support to maintain balance in stance Bed Mobility: supine<>sit CG Transfers: sit<>stand min A; good carry-over of hand placement Functional Mobility: Pt performed short bouts of functional mobility within room bed>recliner, recliner>commode using RW requiring min AX1 Therapeutic Exercise: Pt provided with red theraband + UE HEP. Pt demonstrates excellent understanding + carry-over of exercises. Encouraged to perform 10-15 reps x 3 sets, at least 3x/day Endurance/Activity Tolerance: Good for session, performed all activity RA Subjective I don't want to be there for long Flowsheet Data 11/22/24 1001 OT Time and Intention OT Follow-Up Visit follow up treatment Mode of Treatment occupational therapy Patient Effort good Symptoms Noted During/After Treatment none General Information Patient Profile Reviewed yes Patient/Family/Caregiver Comments/Observations I don't want to be there for long General Observations of Patient Rec'd seated EOB, in NAD on RA, agreeable. Limb protector donned [place] Pain Scale: Word Pre/Post-Treatment Pre/Posttreatment Pain Comment denied pain Coping Observed Emotional State calm;cooperative Safety Safety WDL WDL Progressive Mobility Progressive Mobility Level Achieved Ambulation [facility] Daily Activity Putting on and taking off Lower Body Clothing? 3 Bathing (including washing/rinsing/drying)? 2 Toileting (includes using toilet, bedpan, or urinal)? 2 Putting on and taking off upper body clothing? 3 Taking care of personal grooming such as brushing teeth? 3 Eating meals? 3 [facility] Daily Activity Score 16 Progress Summary (OT) Progress Toward Functional Goals (OT) progress toward functional goals is good Therapy Plan Review/Discharge Plan (OT) OT Recommendations for Staff AX1 SPT chair/commode with RW, OOB for meals, encourage participation with ADLs Sign: Christen Tapia OT * Anmol Reynoso MD - 11/22/2024 9:33 AM EST Images from the original note were not included. Nephrology Progress Note Blas Genao Date 11/22/2024 Assessment & Plan Mr. 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 Hospital course complicated by: - nonhealing left lower extremity ulcer and is now status left BKA. 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 Followed chronically by Dr Lopez in [place] Cr peak this admission 2.1mg/dL in the setting of bacteremia and endocarditis. 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 Overall suggesting a hemodynamic renal injury improved with aggressive diuresis Net -27L Cr downtrended with diuretic holiday Plan: - Ok to restart PO bumex 2mg daily - c/w Jardiance - regarding the question of mcfp PICC for Abx, patient high risk for PICC and proline placed instead on 11/19/24 2. 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 Hyponatremia, resolving Hypovolemic Hyponatremia, improved after diuretic holiday Plan; - OK to restart bumex 2mg PO daily. Subjective Notable Events: No acute events Denies dyspnea Tolerating PO bumex and Jardiance Review of Systems Constitutional: negative, no fever Eyes: negative, no vision changes Ears, nose, mouth, throat, and face: negative Respiratory: negative, no SOB currently. Cardiovascular: negative, no C/P now. Gastrointestinal: negative, no abd pain Genitourinary:negative, no dysuria Hematologic/lymphatic: negative Musculoskeletal:negative, no joint pains currently Neurological: negative, No JOY now Behavioral/Psych: negative Endocrine: negative Remainder of ROS negative but for that detailed above. Objective Physical Exam Vitals: 11/22/24 0045 11/22/24 0421 11/22/24 0600 11/22/24 0737 BP: (!) 107/48 (!) 112/52 BP Location: Right arm Right arm Patient Position: Lying Lying Pulse: (!) 59 (!) 55 (!) 53 Resp: 18 18 Temp: 97.8 ??F (36.6 ??C) 97.5 ??F (36.4 ??C) TempSrc: Tympanic Tympanic SpO2: 94% 92% 92% Weight: 101 kg (222 lb 7.1 oz) Height: Weight Trend: Wt Readings from Last 3 Encounters: 11/22/24 101 kg (222 lb 7.1 oz) 09/02/24 104 kg (230 lb) 09/03/24 102 kg (224 lb 3.2 oz) I/O Last 3 Shifts: I/O last 3 completed shifts: In: 813 [P.O.:720; I.V.:93] Out: 2925 [Urine:2925] General appearance: Comfortable appearing Lungs: clear to auscultation bilaterally Heart: regular rate and rhythm, S1, S2 normal, no rub Abdomen: soft, non-tender; bowel sounds normal Extremities: Left BKA. Right TMA Edema: None Neurologic: Grossly normal, no asterixis. Relevant data reviewed Notable labs are: Recent Labs 11/20/24 0659 11/21/24 0658 11/22/24 0731 NA 137 136 137 K 3.8 3.7 4.2 CO2 30 27 27 ANIONGAP 9 10 9 CL 98 99 101 BUN 47* 38* 36* CREAT 1.9* 1.8* 1.6* EGFR 39* 42* 48* CALCIUM 9.0 8.8 8.8 MG 2.2 2.1 2.0 Recent Labs 11/20/24 0659 11/21/24 0658 11/22/24 0731 WBC 11.9* 14.0* 12.1* HGB 8.3* 8.2* 8.1* HCT 27.2* 26.7* 26.2* PLT 339 329 333 Results from last 7 days Lab Units 11/19/24 1600 CREATININE, URINE, RANDOM mg/dL 31 Lab Results Component Value Date PROBNP 429 (H) 11/15/2024 PROBNP 994 (H) 11/13/2024 Lab Results Component Value Date ALBUMIN 2.9 (L) 11/17/2024 ALBUMIN 2.6 (L) 11/11/2024 No results found for: TACROLIMUS No results found for: [id number] , TOTVOL , CRCLR , PERIOD No results found for: IRON , TIBC , IRONSAT , UIBC Lab Results Component Value Date BILITOT 0.2 11/17/2024 AST 24 11/17/2024 Medications Medication/MAR Report: Medications Scheduled Medication Ordered Dose/Rate, Route, Frequency Last Action amiODARONE (PACERONE) tablet 200 mg 200 mg, PO, Daily Given, 200 mg at 11/22 820 amLODIPine (NORVASC) tablet 5 mg 5 mg, PO, Daily Given, 5 mg at 11/22 821 bumetanide (BUMEX) tablet 2 mg 2 mg, PO, Daily Given, 2 mg at 11/22 820 buPROPion (WELLBUTRIN SR) 12 hr tablet 150 mg 150 mg, PO, BID Given, 150 mg at 11/22 820 calcium citrate (CALCITRATE) tablet 950 mg 950 mg, PO, BID with meals Given, 950 mg at 11/22 820 cefTRIAXone (ROCEPHIN) 2 g in sodium chloride-MBP (NS) 100 mL IVPB-MBP 2 g, IV, Q24H New Bag, 2 g at 11/21 1204 chlorhexidine gluconate 2 % wipes - urethral catheter CHG application No Dose/Rate, TOP, Daily Given, No Dose/Rate at 11/21 09 cholecalciferol tablet 2,000 Units 2,000 Units, PO, Daily Given, 2,000 Units at 11/22 821 cyanocobalamin (VITAMIN B-12) tablet 2,500 mcg 2,500 mcg, PO, Daily Given, 2,500 mcg at 11/22 08 DAPTOmycin (CUBICIN) 975 mg in sodium chloride (NS) 0.9 % 50 mL IVPB 10 mg/kg, IV, Q24H New Bag, 975 mg at 11/21 1403 donepezil (ARICEPT) tablet 10 mg 10 mg, PO, QAM Given, 10 mg at 11/22 820 empagliflozin (JARDIANCE) 25 mg 25 mg, PO, Daily Given, 25 mg at 11/22 821 folic acid (FOLVITE) tablet 1 mg 1 mg, PO, Daily Given, 1 mg at 11/22 820 glimepiride (AMARYL) tablet 2 mg 2 mg, PO, Daily with breakfast Given, 2 mg at 11/22 821 heparin (porcine) 5000 unit/mL injection 5,000 Units 5,000 Units, SC, Q8H JUDSON Given, 5,000 Units at 11/22 821 insulin glargine (LANtus/SEMGLEE) 100 units/mL injection 10 Units 10 Units, SC, Daily Given, 10 Units at 11/22 822 insulin lispro (HumaLOG/ADMELOG) 100 units/mL injection 1-6 Units 1-6 Units, SC, TID with meals Given, 2 Units at 11/22 823 insulin lispro (HumaLOG/ADMELOG) 100 units/mL injection 3 Units 3 Units, SC, TID with meals Given, 3 Units at 11/22 823 methocarbamol (ROBAXIN) tablet 1,000 mg 1,000 mg, PO, 4x Daily Given, 1,000 mg at 11/22 820 metoPROLOL TARTRATE (LOPRESSOR) tablet 50 mg 50 mg, PO, BID Given, 50 mg at 11/22 820 multivitamin with minerals tablet 1 tablet 1 tablet, PO, Daily Given, 1 tablet at 11/22 820 nicotine (NICODERM CQ) 21 MG/24HR patch 1 patch 1 patch, TD, Daily Patch Applied, 1 patch at 11/22 823 PANTOprazole (PROTONIX) EC tablet 40 mg 40 mg, PO, Daily Given, 40 mg at 11/22 820 polyethylene glycol (miraLAx) packet 17 g 17 g, PO, Daily Given, 17 g at 11/22 821 [Provider Held] pravastatin (PRAVACHOL) tablet 20 mg On hold since Fri11/03/2024 at 0850 until manually unheld; held by Ena Mtz MDHold Reason: Other - Comment requiredHold Comments: While on IV daptomycin On hold since Fri11/03/2024 at 0850 until manually unheld (Needs Review) Hold reason: Other - Comment required, Hold comment: While on IV daptomycin 20 mg, PO, Daily Ordered pregabalin (LYRICA) capsule 100 mg 100 mg, PO, TID Given, 100 mg at 11/22 820 senna-docusate (SENNA-S) 8.6-50 MG tablet 2 tablet 2 tablet, PO, BID Given, 2 tablet at 11/22 820 thiamine mononitrate (VITAMIN B-1) tablet 200 mg 200 mg, PO, Daily Given, 200 mg at 11/22 820 PRN Medication Ordered Dose/Rate, Route, Frequency Last Action acetaminophen (TYLENOL) tablet 975 mg 975 mg, PO, Q6H PRN Ordered benzocaine-menthol (CHLORASEPTIC) 6-10 MG lozenge 1 lozenge 1 lozenge, MT, Q2H PRN Ordered bisacodyl (DULCOLAX) suppository 10 mg 10 mg, RE, Daily PRN Ordered calcium carbonate (TUMS) chewable tablet 1,000 mg 1,000 mg, PO, Q12H PRN Ordered carboxymethylcellulose (REFRESH PLUS) 0.5 % ophthalmic solution 2 drop 2 drop, Each Eye, Q2H PRN Ordered ipratropium-albuterol (DUONEB) 0.5-2.5 mg/3 mL nebulizer solution 3 mL 3 mL, NEBULIZATION, Q2H PRN Given, 3 mL at 11/07 102 lactulose (ENULOSE) 10 gm/15 mL solution 20 g 20 g, PO, Q4H PRN Ordered melatonin tablet 3 mg 3 mg, PO, Nightly PRN Given, 3 mg at 11/19 2221 naloxone (NARCAN) 0.4 mg/mL injection 0.4 mg 0.4 mg, IV, Q5 Min PRN Ordered naloxone (NARCAN) 0.4 mg/mL injection 0.4 mg 0.4 mg, IV, Q5 Min PRN Ordered ondansetron (ZOFRAN) injection 4 mg 4 mg, IV, Q6H PRN Given, 4 mg at 11/17 1639 Sign: Anmol Reynoso MD 11/22/2024 9:34 AM [facility] Nephrology Office [phone] * Roberto Carranza PTA - 11/22/2024 8:46 AM EST Physical Therapy Progress Note Precautions/Restrictions: aspiration, fall, isolation: contact, other (see comments), weight bearing (Skin) Assessment Summary: Patient seen for PT follow up. Performed bed mobility, transfers and gait training this session. Required Ax1 for mobility. Continues to make good progress towards IP PT mobility goals. Remains highly motivated to improve functionally. Presents below functional baseline with impairments instanding static/ dynamic balance and overall activity tolerance. Will benefit from intensive skilled PT/OT in acute rehab setting when medically cleared. Anticipate patient will be able to tolerate at least three hours of daily therapy. Progress Towards Goals: progress toward functional goals is good Outcome Measures: The Activity Measure for Post-Acute Care (AM-PAC) Basic Mobility Inpatient Short Form (6-clicks) zakiya standardized measure used to quantify functional deficits in mobility. The total score of the measure ranges from 6-24. A higher score indicates a higher level of independence with functional mobility. Current [facility] Basic Mobility Score: 16 Rehab Plan of Care PT will continue to follow while in house Continue therex to maintain functional strength Progress transfers and gait training as tolerated/ appropriate It is vital that patient continues to participate in daily mobility with interdisciplinary team, outside of PT sessions, to promote highest possible level of functional independence. PT Recommendations for Staff: Ax1 for SPT with RW. NWB LLE. Recliner or EOB for meals to improve upright tolerance. Egress as appropriate. PT Frequency during Hospitalization: 2-3 times/wk Plan of Care Reviewed With: patient Objective Data/Intervention Bed Mobility Assessment/Intervention: Supine <> sit with supervision. Endorsed mild dizzinessinitially however subsided within 30 sec. Demonstrated good sitting static/ dynamic balance EOB with supervision. Transfers Assessment/Intervention: Sit <> stand x2 with RW and min Ax1. Cues for sequencing and safety. Mildly unsteady upon standing, no overt LOB noted. Gait/Stair Assessment/Intervention: Sides hops at EOB x10 with min Ax1. Cues for sequencing, assistwith RW management intermittently. Mildly unsteady at times, however no overt LOB noted. Ambulated 5ft with RW and min Ax1. Utilized hop-to gait, endorsed increased fatigue. No overt LOB. Activity Tolerance/Endurance Assessment/Intervention: Fair for PT follow up. Vitals: Unmonitored/ asymptomatic Education: Role of PT, mobility techniques, safety, and IP PT goals Subjective My shoulder is feeling better today. Flowsheet Data 11/22/24 0846 Physical Therapy Time and Intention PT Follow-Up Visit follow up treatment Mode of Treatment individual therapy;physical therapy Patient Effort good Symptoms Noted During/After Treatment fatigue General Information Patient Profile Reviewed yes Patient/Family/Caregiver Comments/Observations My shoulder is feeling better today. General Observations of Patient Semi reclined in bed, on RA, NAD. Cleared by RN. Agreeable to PT session. Existing Precautions/Restrictions aspiration;fall;isolation: contact;other (see comments);weight bearing (Skin) Pain Scale: Numbers Pre/Post-Treatment Pre/Posttreatment Pain Comment Denied pain throughout session Cognition Cognitive Status WFL Mobility Left Lower Extremity (Weight-bearing Status) non weight-bearing (NWB) Coping Observed Emotional State calm;cooperative Verbalized Emotional State acceptance Family/Support Persons patient Plan of Care Review Plan of Care Reviewed With patient Safety Safety Factors wheels locked;ID band on;call light in reach;bed in low position;upper side rails raised x 2, lower side rail raised x 1 All Alarms alarm(s) activated and audible Enhanced Safety Measures bed alarm set Progressive Mobility Progressive Mobility Level Achieved Transferring to Chair [facility] Basic Mobility Turning from your back to your side while in a flat bed without using bedrails? 4 Moving from lying on your back to sitting on the side of a flat bed without using bedrails? 3 Moving to and from a bed to a chair (including wheelchair)? 3 Standing up from a chair using your arms? 3 To walk in a hospital room? 2 Climbing 3-5 steps with a railing? 1 [facility] Basic Mobility Score 16 Therapy Assessment/Plan (PT) Patient/Family Therapy Goals Statement (PT) To return home Therapy Frequency (PT) 2-3 times/wk PT Recommendations for Staff Ax1 for SPT with RW. NWB LLE. Recliner or EOB for meals to improve upright tolerance. Egress as appropriate. Predicted Duration of Therapy Intervention (PT) LOS Progress Summary (PT) Progress Toward Functional Goals (PT) progress toward functional goals is good Therapy Plan Review/Discharge Plan (PT) Therapy Plan Review (PT) care plan/treatment goals reviewed;evaluation/treatment results reviewed;patient Transfer Goal 1 (PT) Progress/Outcome (Transfer Goal 1, PT) goal ongoing Gait Training Goal 1 (PT) Progress/Outcome (Gait Training Goal 1, PT) goal ongoing Sign: Roberto Carranza PTA * Gema Dumont SHUBHAM Jane - 11/22/2024 8:18 AM EST Images from the original note were not included. 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 He had a nonhealing left lower extremity ulcer and is now status left BKA. TATIANNA showing small mobile echodensity posterior to MV annulus and adjacent to watchman device- now s/p device extraction and Micra implantation. Plan: -euvolemic on exam; continue p.o. Bumex 2 mg daily -continue Jardiance -s/p extraction of pacemaker 11/17 due to bacteremia and Micra pacemaker insertion with Dr. Pabon -continue amiodarone 200 mg daily and metoprolol tartrate 50 mg BID -continue IV antibiotics -plan for repeat TATIANNA end of November per ID -continue telemetry monitoring -strict I/O -daily standing weights Subjective / 24h Events He is concerned about the setting of his micra stating his HR is too low and he would like the samesettings as his previous PPM. He reports nocturnal HRs in the 40s, he's programmed VDD 50-120bm. No chest pain, shortness of breath, syncope/presyncope. Objective Telemetry Reviewed: Atrial sensed V paced, 54 Last Vitals Pulse:(!) 53,Resp:18,BP:(!) 112/52,SpO2:92 %,Weight:101 kg (222 lb 7.1 oz) Temp Last 24 hrs: Temp Min: 97 ??F (36.1 ??C) Max: 98.3 ??F (36.8 ??C) Intake/Output Summary (Last 24 hours) at 11/22/2024 0819 Last data filed at 11/22/2024 0028 Gross per 24 hour Intake 528 ml Output 1375 ml Net -847 ml Physical Exam Gen : comfortable, alert JVP : normal HEENT: no icterus or pallor, moist oral mucosa Lungs : good inspiratory effort, no crackles, no wheezing CVS : regular rhythm, normal S1 S2, systolic murmur at the apex Abdo : soft, non-distended, non-tender, no organomegaly appreciated Peripheries : warm, normal pulses, no edema Neuro: oriented x3, no focal abnormalities, s/p L BKA Skin: dry, no cyanosis, no rash Medications Medications Scheduled Medication Ordered Dose/Rate, Route, Frequency Last Action amiODARONE (PACERONE) tablet 200 mg 200 mg, PO, Daily Given, 200 mg at 11/21 916 amLODIPine (NORVASC) tablet 5 mg 5 mg, PO, Daily Given, 5 mg at 11/21 914 bumetanide (BUMEX) tablet 2 mg 2 mg, PO, Daily Given, 2 mg at 11/19 102 buPROPion (WELLBUTRIN SR) 12 hr tablet 150 mg 150 mg, PO, BID Given, 150 mg at 11/21 215 calcium citrate (CALCITRATE) tablet 950 mg 950 mg, PO, BID with meals Given, 950 mg at 11/21 171 cefTRIAXone (ROCEPHIN) 2 g in sodium chloride-MBP (NS) 100 mL IVPB-MBP 2 g, IV, Q24H New Bag, 2 g at 11/21 1204 chlorhexidine gluconate 2 % wipes - urethral catheter CHG application No Dose/Rate, TOP, Daily Given, No Dose/Rate at 11/21 918 cholecalciferol tablet 2,000 Units 2,000 Units, PO, Daily Given, 2,000 Units at 11/21 09 cyanocobalamin (VITAMIN B-12) tablet 2,500 mcg 2,500 mcg, PO, Daily Given, 2,500 mcg at 11/21 914 DAPTOmycin (CUBICIN) 975 mg in sodium chloride (NS) 0.9 % 50 mL IVPB 10 mg/kg, IV, Q24H New Bag, 975 mg at 11/21 1403 donepezil (ARICEPT) tablet 10 mg 10 mg, PO, QAM Given, 10 mg at 11/21 916 empagliflozin (JARDIANCE) 25 mg 25 mg, PO, Daily Given, 25 mg at 11/04 0756 folic acid (FOLVITE) tablet 1 mg 1 mg, PO, Daily Given, 1 mg at 11/21 916 glimepiride (AMARYL) tablet 2 mg 2 mg, PO, Daily with breakfast Given, 2 mg at 11/04 075 heparin (porcine) 5000 unit/mL injection 5,000 Units 5,000 Units, SC, Q8H JUDSON Given, 5,000 Units at 11/22 0144 insulin glargine (LANtus/SEMGLEE) 100 units/mL injection 10 Units 10 Units, SC, Daily Given, 10 Units at 11/21 918 insulin lispro (HumaLOG/ADMELOG) 100 units/mL injection 1-6 Units 1-6 Units, SC, TID with meals Given, 2 Units at 11/21 1711 insulin lispro (HumaLOG/ADMELOG) 100 units/mL injection 3 Units 3 Units, SC, TID with meals Given, 3 Units at 11/21 1711 methocarbamol (ROBAXIN) tablet 1,000 mg 1,000 mg, PO, 4x Daily Given, 1,000 mg at 11/21 2153 metoPROLOL TARTRATE (LOPRESSOR) tablet 50 mg 50 mg, PO, BID Given, 50 mg at 11/21 2153 multivitamin with minerals tablet 1 tablet 1 tablet, PO, Daily Given, 1 tablet at 11/21 915 nicotine (NICODERM CQ) 21 MG/24HR patch 1 patch 1 patch, TD, Daily Patch Applied, 1 patch at 11/21 917 PANTOprazole (PROTONIX) EC tablet 40 mg 40 mg, PO, Daily Given, 40 mg at 11/21 913 polyethylene glycol (miraLAx) packet 17 g 17 g, PO, Daily Given, 17 g at 11/21 917 [Provider Held] pravastatin (PRAVACHOL) tablet 20 mg On hold since Fri11/03/2024 at 0850 until manually unheld; held by Ena Mtz MDHold Reason: Other - Comment requiredHold Comments: While on IV daptomycin On hold since Fri11/03/2024 at 0850 until manually unheld (Needs Review) Hold reason: Other - Comment required, Hold comment: While on IV daptomycin 20 mg, PO, Daily Ordered pregabalin (LYRICA) capsule 100 mg 100 mg, PO, TID Given, 100 mg at 11/21 2152 senna-docusate (SENNA-S) 8.6-50 MG tablet 2 tablet 2 tablet, PO, BID Given, 2 tablet at 11/21 09 thiamine mononitrate (VITAMIN B-1) tablet 200 mg 200 mg, PO, Daily Given, 200 mg at 11/21 0915 PRN Medication Ordered Dose/Rate, Route, Frequency Last Action acetaminophen (TYLENOL) tablet 975 mg 975 mg, PO, Q6H PRN Ordered benzocaine-menthol (CHLORASEPTIC) 6-10 MG lozenge 1 lozenge 1 lozenge, MT, Q2H PRN Ordered bisacodyl (DULCOLAX) suppository 10 mg 10 mg, RE, Daily PRN Ordered calcium carbonate (TUMS) chewable tablet 1,000 mg 1,000 mg, PO, Q12H PRN Ordered carboxymethylcellulose (REFRESH PLUS) 0.5 % ophthalmic solution 2 drop 2 drop, Each Eye, Q2H PRN Ordered ipratropium-albuterol (DUONEB) 0.5-2.5 mg/3 mL nebulizer solution 3 mL 3 mL, NEBULIZATION, Q2H PRN Given, 3 mL at 11/07 1025 lactulose (ENULOSE) 10 gm/15 mL solution 20 g 20 g, PO, Q4H PRN Ordered melatonin tablet 3 mg 3 mg, PO, Nightly PRN Given, 3 mg at 11/19 2222 naloxone (NARCAN) 0.4 mg/mL injection 0.4 mg 0.4 mg, IV, Q5 Min PRN Ordered naloxone (NARCAN) 0.4 mg/mL injection 0.4 mg 0.4 mg, IV, Q5 Min PRN Ordered ondansetron (ZOFRAN) injection 4 mg 4 mg, IV, Q6H PRN Given, 4 mg at 11/17 1639 Relevant data reviewed Results from last 7 days Lab Units 11/22/24 0735 11/22/24 0731 11/21/24 2128 11/21/24 0745 11/21/24 0658 11/20/24 0758 11/20/24 0659 11/17/24 0720 11/17/24 0500 SODIUM mmol/L -- 137 -- -- 136 -- 137 < > 128* POTASSIUM mmol/L -- 4.2 -- -- 3.7 -- 3.8 < > 3.7 CHLORIDE mmol/L -- 101 -- -- 99 -- 98 < > 87* CO2 mmol/L -- 27 -- -- 27 -- 30 < > 30 BUN mg/dL -- 36* -- -- 38* -- 47* < > 54* CREATININE mg/dL -- 1.6* -- -- 1.8* -- 1.9* < > 1.8* CALCIUM mg/dL -- 8.8 -- -- 8.8 -- 9.0 < > 9.4 GLUCOSE mg/dL -- 178* -- -- 153* -- 155* < > 171* GLUCOSE, POC mg/dL 194* -- 220* < > -- < > -- < > -- EGFR -- 48* -- -- 42* -- 39* < > 42* ALBUMIN g/dL -- -- -- -- -- -- -- -- 2.9* PROTEIN, TOTAL g/dL -- -- -- -- -- -- -- -- 6.6 BILIRUBIN TOTAL mg/dL -- -- -- -- -- -- -- -- 0.2 ALK PHOS U/L -- -- -- -- -- -- -- -- 117 ALT U/L -- -- -- -- -- -- -- -- 19 AST U/L -- -- -- -- -- -- -- -- 24 < > = values in this interval not displayed. Lab Results Component Value Date MG 2.0 11/22/2024 Results from last 7 days Lab Units 11/21/24 0658 11/20/24 0659 11/19/24 0754 WHITE BLOOD CELL COUNT Thou/uL 14.0* 11.9* 10.1 HEMOGLOBIN g/dL 8.2* 8.3* 8.2* HEMATOCRIT % 26.7* 27.2* 26.6* PLATELET COUNT Thou/uL 329 339 354 Lab Results Component Value Date HSTNT 26 (H) 11/08/2024 HSTNT 29 (H) 11/07/2024 HSTNT 26 (H) 11/07/2024 Lab Results Component Value Date PROBNP 429 (H) 11/15/2024 Lab Results Component Value Date HGBA1C 8.7 (H) 09/03/2024 Pertinent Cardiac & Imaging Studies Recent Results (from the past 8760 hour(s)) ECG 12 lead Collection Time: 11/07/24 2:58 PM Result Value Status Systolic BP 116 Final Diastolic BP 57 Final Ventricular rate 62 Final Atrial rate 55 Final QRS duration 168 Final Q-T interval 506 Final QTC calculation (Bazett) 513 Final R axis 104 Final T axis -39 Final Narrative Ventricular-paced rhythm Abnormal ECG When compared with ECG of 02-Nov-2024 21:34, Vent. rate has decreased by 8 bpm Confirmed by MD Claude, [facility] ([id number]) on 11/07/2024 6:25:53 PM TATIANNA 11/11/24 There is a small mobile echodensity posterior to the mitral valve annulus, adjacent to the watchmandevice (clip 62, 64). This could be a possible vegetation versus benign fibrous strand however in the setting of bacteremia vegetation cannot be excluded. Left ventricular systolic function is mildly decreased with an estimated ejection fraction of 40-44%. Right ventricular systolic function is mildly reduced. There is a patent foramen ovale with predominant left to right shunting indicated by color Doppler. There is mild apical tethering of the mitral valve leaflets.The mitral leaflets are mildly thickened. There is moderate functional mitral regurgitation with a centrally directed jet. There is no mitral valve stenosis. The tricuspid valve annulus is mildly dilated. There is moderate to severe tricuspid regurgitation. Compared to previous study on 11/04/2024, Device, pacemaker wire and valvular structures are better visualized. A small focal echodensity is seen posterior to mitral valve annulus andadjacent to watchman device. Echo 11/04/2024: The left ventricle is mildly dilated. Left ventricular systolic function is mildly decreased. The quantitative EF is 43% by 3D imaging, and 46% by 2D Martinez biplane. The right ventricle is dilated. Right ventricular systolic function is normal. A pacer wire is present in the right ventricle. Right atrial cavity is severely dilated. A pacemaker wire is present in the right atrium. The mitral leaflets are moderately thickened. There is moderate to severe mitral regurgitation. Cannot rule out vegetation on the mitral valve leaflets. There is moderate tricuspid regurgitation. The estimated right ventricular systolic pressure is 44 mmHg. There is mild aortic regurgitation. The pulmonic valve was not well visualized. Compared to previous outside study report from [facility] on 08/05/2024, Mitral and tricuspid regurgitation were not previously reported. Recommend transesophageal echocardiogram if clinically indicated. Brain MRI 11/12/2024 No acute intracranial findings or suspicious intracranial lesions. No septic emboli. All additional appropriate imaging studies within the past 24 hours reviewed - images reviewed and independently interpreted. Sign Gema Jane APRN [facility] [place] 11/22/2024 8:19 AM * Jose Adair MD - 11/21/2024 2:23 PM EST Nephrology Progress Note Blas Mcknight Sebastien Date 11/21/2024 Assessment & Plan Assessment CKD 3A, creatinine is holding pretty much in the same range. His volume status looks fine. Electrolytes are in a good range Plan Continue current management. Follow-up renal function testing daily. Avoid nephrotoxic injuries. Subjective Follow up for : Baseline creatinine 1.4, peripheral vascular disease, atrial fibrillation, diabetes mellitus, was admitted with polymicrobial bacteremia. Ended up having a left BKA. 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 He is awake and alert. He is talkative. Blood pressures in a good range Urine output 2.5 L yesterday Review of Systems Constitutional: negative, no fever Respiratory: negative, no SOB currently. Cardiovascular: negative, no C/P now. Gastrointestinal: negative, no abd pain Genitourinary:negative, no dysuria Remainder of ROS negative but for that detailed above. Objective Medications Current Medications: acetaminophen, 975 mg, Oral, Q6H JUDSON amiODARONE, 200 mg, Oral, Daily amLODIPine, 5 mg, Oral, Daily bumetanide, 2 mg, Oral, Daily buPROPion, 150 mg, Oral, BID calcium citrate, 950 mg, Oral, BID with meals cefTRIAXone, 2 g, Intravenous, Q24H chlorhexidine gluconate, , Topical, Daily cholecalciferol, 2,000 Units, Oral, Daily cyanocobalamin, 2,500 mcg, Oral, Daily DAPTOmycin, 10 mg/kg (Adjusted), Intravenous, Q24H donepezil, 10 mg, Oral, QAM empagliflozin, 25 mg, Oral, Daily folic acid, 1 mg, Oral, Daily glimepiride, 2 mg, Oral, Daily with breakfast heparin (porcine), 5,000 Units, Subcutaneous, Q8H JUDSON insulin glargine, 10 Units, Subcutaneous, Daily insulin lispro, 1-6 Units, Subcutaneous, TID with meals insulin lispro, 3 Units, Subcutaneous, TID with meals methocarbamol, 1,000 mg, Oral, 4x Daily metoPROLOL TARTRATE, 50 mg, Oral, BID multivitamin with minerals, 1 tablet, Oral, Daily nicotine, 1 patch, Transdermal, Daily PANTOprazole, 40 mg, Oral, Daily polyethylene glycol, 17 g, Oral, Daily [Provider Held] pravastatin, 20 mg, Oral, Daily pregabalin, 100 mg, Oral, TID senna-docusate, 2 tablet, Oral, BID thiamine, 200 mg, Oral, Daily Continuous Infusions: PRN Medications: acetaminophen benzocaine-menthol bisacodyl calcium carbonate artificial tears ipratropium-albuterol lactulose melatonin naloxone naloxone ondansetron Allergy Allergies Allergen Reactions Lisinopril Other (See Comments) Dehydration Physical Exam Vitals: 11/21/24 0600 11/21/24 0743 11/21/24 0912 11/21/24 1150 BP: (!) 111/55 (!) 109/50 (!) 111/51 BP Location: Right arm Right arm Right arm Patient Position: Lying Lying Lying Pulse: (!) 53 (!) 57 (!) 50 Resp: 18 16 18 Temp: 97 ??F (36.1 ??C) 97.4 ??F (36.3 ??C) TempSrc: Tympanic Tympanic SpO2: 93% 95% Weight: 97.9 kg (215 lb 14.4 oz) Height: Weight trend: Wt Readings from Last 3 Encounters: 11/21/24 97.9 kg (215 lb 14.4 oz) 09/02/24 104 kg (230 lb) 09/03/24 102 kg (224 lb 3.2 oz) Intake/Output Summary (Last 24 hours) at 11/21/2024 1423 Last data filed at 11/21/2024 1300 Gross per 24 hour Intake 550 ml Output 2175 ml Net -1625 ml General appearance: Comfortable appearing Lungs: clear to auscultation bilaterally Heart: regular rate and rhythm, S1, S2 normal, no rub Abdomen: soft, non-tender; bowel sounds normal Extremities: Left BKA Edema: None Relevant data reviewed Notable labs are: Recent Labs 11/19/24 0754 11/20/24 0659 11/21/24 0658 NA 132* 137 136 K 3.7 3.8 3.7 CO2 30 30 27 ANIONGAP 10 9 10 CL 92* 98 99 BUN 43* 47* 38* CREAT 1.8* 1.9* 1.8* EGFR 42* 39* 42* CALCIUM 9.1 9.0 8.8 MG 2.1 2.2 2.1 Recent Labs 11/19/24 0754 11/20/24 0659 11/21/24 0658 WBC 10.1 11.9* 14.0* HGB 8.2* 8.3* 8.2* HCT 26.6* 27.2* 26.7* PLT 354 339 329 Results from last 7 days Lab Units 11/19/24 1600 CREATININE, URINE, RANDOM mg/dL 31 Lab Results Component Value Date PROBNP 429 (H) 11/15/2024 PROBNP 994 (H) 11/13/2024 Lab Results Component Value Date ALBUMIN 2.9 (L) 11/17/2024 ALBUMIN 2.6 (L) 11/11/2024 No results found for: TACROLIMUS No results found for: [id number] , TOTVOL , CRCLR , PERIOD No results found for: IRON , TIBC , IRONSAT , UIBC Lab Results Component Value Date BILITOT 0.2 11/17/2024 AST 24 11/17/2024 Sign: Jose Adair MD 11/21/2024 2:23 PM * Gianluca Calles MD - 11/21/2024 12:02 PM EST [facility] MEDICINE PROGRESS NOTE Assessment & Plan Principal Problem: Acute osteomyelitis of left calcaneus (HCC) (POA: Yes) Active Problems: HTN (hypertension) (POA: Yes) A-fib (HCC) (POA: Yes) PAD (peripheral artery disease) (POA: Yes) MERVIN on CPAP (POA: Yes) Diabetes (HCC) (POA: Yes) Stage 3a chronic kidney disease (CKD) (HCC) (POA: Yes) Hyperlipidemia (POA: Yes) Smoker (POA: Yes) Chronic diastolic congestive heart failure (HCC) (POA: Yes) Osteomyelitis (HCC) (POA: Yes) CKD (chronic kidney disease) (Chronic) (POA: Yes) Bacteremia (POA: Unknown) Presence of permanent cardiac pacemaker (POA: Unknown) Mitral valve vegetation (POA: Unknown) Mitral valve regurgitation (POA: Unknown) Resolved Problems: Brief Summary 63 year old male with past medical history of atrial flutter, AV Block, CHFpEF, hypertension, HLD, CKD, PAD and DMII who presented to the hospital for left BKA however his post op coarse was complicated with bacteremia, endocarditis and CHF exacerbation. Patient was originally admitted to the hospital on 11/05 for BKA given chronic left calcaneal polymicrobial osteomyelitis. Unfortunately his hospital course got complicated with MRSA, Enterococcus faecium/faecalis bacteremia. He subsequently underwent a TATIANNA that showed a mobile echodensity posterior to mitral valve annulus adjacent to Watchman device. He has received various antibiotics including ceftaroline, meropenem, aztreonam and is now ma intained on daptomycin monotherapy. 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 Well controlled at this time AHRF; resolved Acute on chronic CHFmrEF; LVEF 43% MERVIN on CPAP Hypertension -Hospital course was complicated with acute hypoxemic respiratory failure secondary to CHF exacerbation. -Echocardiogram showed EF of ~45 percent which is similar to echo last year. -Chest x-ray showed evidence of pulmonary edema. -Cardiology service was consulted. He received aggressive diuresis with IV Bumex. -His oxygen has been weaned down to room air. Patient denies any shortness of breath. -GDMT with Lopressor 50 mg twice daily. -Restart p.o. Jardiance and Bumex and monitor creatinine level -Continue amlodipine 5 mg daily -CPAP at night. Using it with supplemental oxygen Atrial fibrillation s/p watchman AV block s/p PPM -Patient was on anticoagulation until September 2024 which was eventually discontinued after his Watchman procedure and plan was to continue aspirin and amiodarone therapy. He he was originally scheduled to undergo ablation on 01/14/2025. -PPM explanted on 11/17 -Continue amiodarone 200 mg daily and Lopressor 50 mg twice daily. Restart aspirin after his procedures -Cardiac monitoring -EP signed off TABITHA on CKD -Baseline creatinine around 1.4; currently around 1.8-1.9, possibly new baseline -Creatinine peaked to 2.1; likely in the setting of infection and CHF exacerbation -S/p IV diuresis as above -Daily BMP DM II -Continue Lantus 10 units daily. -Continue insulin sliding scale and Premeal insulin 3 units 3 times daily. -Holding home metformin and Jardiance -Hypoglycemia protocol Depression Tremors -Patient was previously experiencing bilateral upper and lower extremity tremors. This was discussed with neurology team and patient underwent MRI of the brain which did not show any acute abnormalities. -Neurology team recommended adjusting dose of Lyrica and Wellbutrin since these are new medications. -Decreased Lyrica to 100 mg 3 times daily Normocytic anemia -Counts stable -Likely nephrogenic Dispo: Pending placement (on IV antibiotics) Quality Metrics DVT PROPHYLAXIS Risk Assessment Scores and Dates: VTE Time Out Orthopedics & NeuroSurgery VTE risk stratification: Standard or low risk (11/05/2024 12:44 PM)VTErisk low and NOT reassessed in last 5 days - Click here to document Chemical Prophylaxis heparin (porcine) 5000 unit/mL injection 5,000 Units Subcutaneous Every 8 hours scheduled Mechanical Prophylaxis SCDs are ordered - Bilateral (Knee High) Antibiotic Stewardship (Disclaimer : absence of data in section implies that patient is not on any antibiotics). ANTIBIOTIC TIME OUT Treatment Indication: Bacteremia/endocarditis Current antibiotic/day of therapy: Anti-infectives (From admission, onward) Start Dose/Rate Route Frequency Ordered Stop 11/18/24 1130 cefTRIAXone (ROCEPHIN) 2 g in sodium chloride-MBP (NS) 100 mL IVPB-MBP 2 g 200 mL/hr over 30 Minutes Intravenous Every 24 hours 11/18/24 1101 11/17/24 1400 ceFAZolin (ANCEF) 2 g in 20 mL SWFI syringe (premix) 2 g over 3 Minutes Intravenous Once 11/17/24 1351 11/18/24 0159 11/03/24 0900 DAPTOmycin (CUBICIN) 975 mg in sodium chloride (NS) 0.9 % 50 mL IVPB 10 mg/kg ?? 97.3 kg (Adjusted) 139 mL/hr over 30 Minutes Intravenous Every 24 hours 11/03/24 0849 Subjective Chief complaint No chief complaint on file. Patient is being seen for acute medical problems and follow-up for chronic medical issues as mentioned in the assessment and plan above. Overnight Events/Patient Discussion: Patient was seen and examined today. No acute events overnight. Resting comfortably in bed. No current complaints or concerns Objective Vitals: 11/20/24 1600 11/20/24 2043 11/20/24 2352 11/21/24 0110 BP: (!) 101/58 (!) 114/55 120/63 Pulse: (!) 51 (!) 55 (!) 50 (!) 55 Resp: 18 18 Temp: 97.2 ??F (36.2 ??C) 96.8 ??F (36 ??C) SpO2: 94% 100% 98% 11/21/24 0411 11/21/24 0743 11/21/24 0912 11/21/24 1150 BP: (!) 121/50 (!) 111/55 (!) 109/50 (!) 111/51 Pulse: 63 (!) 53 (!) 57 (!) 50 Resp: 18 18 16 18 Temp: (!) 96 ??F (35.6 ??C) 97 ??F (36.1 ??C) 97.4 ??F (36.3 ??C) SpO2: 93% 93% 95% Physical Exam Constitutional: Appearance: Normal appearance. HENT: Head: Normocephalic and atraumatic. Cardiovascular: Rate and Rhythm: Normal rate and regular rhythm. Pulses: Normal pulses. Heart sounds: Normal heart sounds. Pulmonary: Effort: Pulmonary effort is normal. Breath sounds: Normal breath sounds. No wheezing or rales. Abdominal: General: Abdomen is flat. There is no distension. Palpations: Abdomen is soft. Tenderness: There is no abdominal tenderness. Musculoskeletal: Right lower leg: No edema. Comments: Left BKA Neurological: General: No focal deficit present. Mental Status: He is alert and oriented to person, place, and time. Relevant data reviewed Results from last 7 days Lab Units 11/21/24 0658 WHITE BLOOD CELL COUNT Thou/uL 14.0* HEMOGLOBIN g/dL 8.2* HEMATOCRIT % 26.7* PLATELET COUNT Thou/uL 329 Results from last 7 days Lab Units 11/21/24 0745 11/21/24 0658 SODIUM mmol/L -- 136 POTASSIUM mmol/L -- 3.7 CHLORIDE mmol/L -- 99 CO2 mmol/L -- 27 BUN mg/dL -- 38* CREATININE mg/dL -- 1.8* EGFR -- 42* GLUCOSE mg/dL -- 153* GLUCOSE, POC mg/dL 175* -- CALCIUM mg/dL -- 8.8 Sign Gianluca Calles MD 11/21/2024 12:02 PM * Gianluca Calles MD - 11/20/2024 11:43 AM EST [facility] MEDICINE PROGRESS NOTE Assessment & Plan Principal Problem: Acute osteomyelitis of left calcaneus (HCC) (POA: Yes) Active Problems: HTN (hypertension) (POA: Yes) A-fib (HCC) (POA: Yes) PAD (peripheral artery disease) (POA: Yes) MERVIN on CPAP (POA: Yes) Diabetes (HCC) (POA: Yes) Stage 3a chronic kidney disease (CKD) (HCC) (POA: Yes) Hyperlipidemia (POA: Yes) Smoker (POA: Yes) Chronic diastolic congestive heart failure (HCC) (POA: Yes) Osteomyelitis (HCC) (POA: Yes) CKD (chronic kidney disease) (Chronic) (POA: Yes) Bacteremia (POA: Unknown) Presence of permanent cardiac pacemaker (POA: Unknown) Mitral valve vegetation (POA: Unknown) Mitral valve regurgitation (POA: Unknown) Resolved Problems: Brief Summary 63 year old male with past medical history of atrial flutter, AV Block, CHFpEF, hypertension, HLD, CKD, PAD and DMII who presented to the hospital for left BKA however his post op coarse was complicated with bacteremia, endocarditis and CHF exacerbation. Patient was originally admitted to the hospital on 11/05 for BKA given chronic left calcaneal polymicrobial osteomyelitis. Unfortunately his hospital course got complicated with MRSA, Enterococcus faecium/faecalis bacteremia. He subsequently underwent a TATIANNA that showed a mobile echodensity posterior to mitral valve annulus adjacent to Watchman device. He has received various antibiotics including ceftaroline, meropenem, aztreonam and is now ma intained on daptomycin monotherapy. 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 Well controlled at this time AHRF; resolved Acute on chronic CHFmrEF; LVEF 43% MERVIN on CPAP Hypertension -Hospital course was complicated with acute hypoxemic respiratory failure secondary to CHF exacerbation. -Echocardiogram showed EF of ~45 percent which is similar to echo last year. -Chest x-ray showed evidence of pulmonary edema. -Cardiology service was consulted. He received aggressive diuresis with IV Bumex. -His oxygen has been weaned down to room air. Patient denies any shortness of breath. -GDMT with Lopressor 50 mg twice daily. -Holding Jardiance and p.o. Bumex pending creatinine improvement -Continue amlodipine 5 mg daily -CPAP at night. Using it with supplemental oxygen Atrial fibrillation s/p watchman AV block s/p PPM -Patient was on anticoagulation until September 2024 which was eventually discontinued after his Watchman procedure and plan was to continue aspirin and amiodarone therapy. He he was originally scheduled to undergo ablation on 01/14/2025. -PPM explanted on 11/17 -Continue amiodarone 200 mg daily and Lopressor 50 mg twice daily. Restart aspirin after his procedures -Cardiac monitoring -EP signed off TABITHA on CKD -Baseline creatinine around 1.4; currently 1.9 -Creatinine peaked to 2.1; likely in the setting of infection and CHF exacerbation -S/p IV diuresis as above -Holding p.o. Bumex and Jardiance as above; plan to resume tomorrow pending creatinine -Daily BMP DM II -Continue Lantus 10 units daily. -Continue insulin sliding scale and Premeal insulin 3 units 3 times daily. -Holding home metformin and Jardiance -Hypoglycemia protocol Depression Tremors -Patient was previously experiencing bilateral upper and lower extremity tremors. This was discussed with neurology team and patient underwent MRI of the brain which did not show any acute abnormalities. -Neurology team recommended adjusting dose of Lyrica and Wellbutrin since these are new medications. -Decreased Lyrica to 100 mg 3 times daily Normocytic anemia -Counts stable -Likely nephrogenic Dispo: Pending placement and creatinine improvement Quality Metrics DVT PROPHYLAXIS Risk Assessment Scores and Dates: VTE Time Out Orthopedics & NeuroSurgery VTE risk stratification: Standard or low risk (11/05/2024 12:44 PM)VTErisk low and NOT reassessed in last 5 days - Click here to document Chemical Prophylaxis heparin (porcine) 5000 unit/mL injection 5,000 Units Subcutaneous Every 8 hours scheduled [ORDER ONHOLD or LAST DOSE HELD - Please Review] Mechanical Prophylaxis SCDs are ordered - Bilateral (Knee High) Antibiotic Stewardship (Disclaimer : absence of data in section implies that patient is not on any antibiotics). ANTIBIOTIC TIME OUT Treatment Indication: Bacteremia/endocarditis Current antibiotic/day of therapy: Anti-infectives (From admission, onward) Start Dose/Rate Route Frequency Ordered Stop 11/18/24 1130 cefTRIAXone (ROCEPHIN) 2 g in sodium chloride-MBP (NS) 100 mL IVPB-MBP 2 g 200 mL/hr over 30 Minutes Intravenous Every 24 hours 11/18/24 1101 11/17/24 1400 ceFAZolin (ANCEF) 2 g in 20 mL SWFI syringe (premix) 2 g over 3 Minutes Intravenous Once 11/17/24 1351 11/18/24 0159 11/03/24 0900 DAPTOmycin (CUBICIN) 975 mg in sodium chloride (NS) 0.9 % 50 mL IVPB 10 mg/kg ?? 97.3 kg (Adjusted) 139 mL/hr over 30 Minutes Intravenous Every 24 hours 11/03/24 0849 Subjective Chief complaint No chief complaint on file. Patient is being seen for acute medical problems and follow-up for chronic medical issues as mentioned in the assessment and plan above. Overnight Events/Patient Discussion: Patient was seen and examined today. No acute events overnight. Resting comfortably in bed. He has concerns about his Micra PM heart rate adjustment. No other complaints or concerns Objective Vitals: 11/19/24 2222 11/19/24 2332 11/20/24 0011 11/20/24 0131 BP: (!) 112/55 (!) 97/52 Pulse: (!) 56 (!) 52 (!) 53 (!) 55 Resp: 18 Temp: 96.9 ??F (36.1 ??C) SpO2: 95% 94% 93% 11/20/24 0410 11/20/24 0420 11/20/24 0755 11/20/24 0936 BP: (!) 105/53 (!) 109/57 Pulse: (!) 53 (!) 59 Resp: 18 18 Temp: (!) 96.2 ??F (35.7 ??C) SpO2: (!) 86% 96% 95% Physical Exam Constitutional: Appearance: Normal appearance. HENT: Head: Normocephalic and atraumatic. Cardiovascular: Rate and Rhythm: Normal rate and regular rhythm. Pulses: Normal pulses. Heart sounds: Normal heart sounds. Pulmonary: Effort: Pulmonary effort is normal. Breath sounds: Normal breath sounds. No wheezing or rales. Abdominal: General: Abdomen is flat. There is no distension. Palpations: Abdomen is soft. Tenderness: There is no abdominal tenderness. Musculoskeletal: Right lower leg: No edema. Comments: Left BKA Neurological: General: No focal deficit present. Mental Status: He is alert and oriented to person, place, and time. Relevant data reviewed Results from last 7 days Lab Units 11/20/24 0659 WHITE BLOOD CELL COUNT Thou/uL 11.9* HEMOGLOBIN g/dL 8.3* HEMATOCRIT % 27.2* PLATELET COUNT Thou/uL 339 Results from last 7 days Lab Units 11/20/24 0758 11/20/24 0659 SODIUM mmol/L -- 137 POTASSIUM mmol/L -- 3.8 CHLORIDE mmol/L -- 98 CO2 mmol/L -- 30 BUN mg/dL -- 47* CREATININE mg/dL -- 1.9* EGFR -- 39* GLUCOSE mg/dL -- 155* GLUCOSE, POC mg/dL 166* -- CALCIUM mg/dL -- 9.0 Sign Gianluca Calles MD 11/20/2024 11:44 AM * Elsy Coronel, ASSOCIATE THEATRE PROFESSOR - 11/20/2024 9:23 AM EST Inpatient Nephrology Progress Note Patient: Blas Genao Admission Date: 11/02/2024 Hospital Day: 19 Assessment and Plan 63-year-old male with past medical history of A-fib, cardiac pacemaker, Watchman device, diabetes, PVD, ESBL, diabetic foot infection/osteomyelitis, s/p right TMA, h/o left calcaneal OM s/p multiple debridements and ostectomy in 08/2024, on wound VAC, as well as 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 Hospital course complicated by: - nonhealing left lower extremity ulcer and is now status left BKA. - Bacteremia secondary to left foot infection. 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 Followed chronically by Ashley in [place] Cr peak this admission 2.1mg/dL in the setting of bacteremia and endocarditis. 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 TABITHA likely from a hemodynamic renal injury that improved with aggressive diuresis Plan: - holding PO bumex and jardiance which can be resumed tomorrow pending BP. Awaiting placement to STR - monitor Cr, is it 1.9mg/dL today, 11/20/24 2. 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 No active bleeding. Plan: - avoid IV iron given bacteremia - Darbe 100mcg x1 given 3. Hyponatremia (resolved) 132 --> 137. Resolved after transitioning from IV to PO bumex (currently on hold) and fluid restriction 4. Need for long-term IV ABX - Since he is high risk for developing ESRD and need for AV access, PICC was deferred and Proline placed instead by IR 11/19/24 to preserve peripheral veins especially with his vasculopath history. Subjective Data He feels well. Tells me he had tremors in his hands but they are gone. No chest pain , SOB or N/V/D. He is hungry and ordering breakfast. Physical Exam Constitutional: Alert. Sitting up in bed Cardiovascular: Regular rate and rhythm. + murmur auscultated Respiratory: Regular depth and pattern, unlabored. Lungs clear to auscultation bilaterally. Room air Peripheral Vascular: Left BKA leg in a brace. Right TMA Edema: None Gastrointestinal: Abdomen soft, non-tender and non-distended. Genitourinary: No suprapubic tenderness Neurological: No focal deficits. Facial movements full and symmetric Scheduled Meds: acetaminophen, 975 mg, Oral, Q6H JUDSON amiODARONE, 200 mg, Oral, Daily amLODIPine, 5 mg, Oral, Daily [Provider Held] bumetanide, 2 mg, Oral, Daily buPROPion, 150 mg, Oral, BID calcium citrate, 950 mg, Oral, BID with meals cefTRIAXone, 2 g, Intravenous, Q24H chlorhexidine gluconate, , Topical, Daily cholecalciferol, 2,000 Units, Oral, Daily cyanocobalamin, 2,500 mcg, Oral, Daily DAPTOmycin, 10 mg/kg (Adjusted), Intravenous, Q24H donepezil, 10 mg, Oral, QAM [Provider Held] empagliflozin, 25 mg, Oral, Daily folic acid, 1 mg, Oral, Daily [Provider Held] glimepiride, 2 mg, Oral, Daily with breakfast [Provider Held] heparin (porcine), 5,000 Units, Subcutaneous, Q8H JUDSON insulin glargine, 10 Units, Subcutaneous, Daily insulin lispro, 1-6 Units, Subcutaneous, TID with meals insulin lispro, 3 Units, Subcutaneous, TID with meals methocarbamol, 1,000 mg, Oral, 4x Daily metoPROLOL TARTRATE, 50 mg, Oral, BID multivitamin with minerals, 1 tablet, Oral, Daily nicotine, 1 patch, Transdermal, Daily PANTOprazole, 40 mg, Oral, Daily polyethylene glycol, 17 g, Oral, Daily potassium chloride, 20 mEq, Oral, Once [Provider Held] pravastatin, 20 mg, Oral, Daily pregabalin, 100 mg, Oral, TID senna-docusate, 2 tablet, Oral, BID thiamine, 200 mg, Oral, Daily Continuous Infusions: PRN Meds: acetaminophen benzocaine-menthol bisacodyl calcium carbonate artificial tears ipratropium-albuterol lactulose melatonin naloxone naloxone ondansetron Vitals: 11/19/24 2056 11/19/24 2222 11/19/24 2332 11/20/24 0011 BP: (!) 112/55 (!) 97/52 Pulse: 64 (!) 56 (!) 52 (!) 53 Resp: 18 Temp: 96.9 ??F (36.1 ??C) SpO2: 94% 95% 94% 11/20/24 0131 11/20/24 0410 11/20/24 0420 11/20/24 0755 BP: (!) 105/53 Pulse: (!) 55 (!) 53 Resp: 18 Temp: (!) 96.2 ??F (35.7 ??C) SpO2: 93% (!) 86% 96% 95% I/O last 3 completed shifts: In: 291 [P.O.:240; I.V.:51] Out: 4270 [Urine:4270] I/O this shift: In: - Out: 575 [Urine:575] Wt Readings from Last 3 Encounters: 11/20/24 99 kg (218 lb 4.1 oz) 09/02/24 104 kg (230 lb) 09/03/24 102 kg (224 lb 3.2 oz) Recent Labs 11/18/24 0715 11/19/24 0754 11/20/24 0659 NA 129* 132* 137 K 3.6 3.7 3.8 CO2 29 30 30 ANIONGAP 11 10 9 CL 89* 92* 98 BUN 45* 43* 47* CREAT 1.8* 1.8* 1.9* EGFR 42* 42* 39* CALCIUM 8.9 9.1 9.0 MG 2.0 2.1 2.2 Recent Labs 11/18/24 0715 11/19/24 0754 11/20/24 0659 WBC 12.3* 10.1 11.9* HGB 8.1* 8.2* 8.3* HCT 25.5* 26.6* 27.2* PLT 349 354 339 Results from last 7 days Lab Units 11/19/24 1600 CREATININE, URINE, RANDOM mg/dL 31 Lab Results Component Value Date PROBNP 429 (H) 11/15/2024 PROBNP 994 (H) 11/13/2024 Lab Results Component Value Date ALBUMIN 2.9 (L) 11/17/2024 ALBUMIN 2.6 (L) 11/11/2024 No results found for: TACROLIMUS No results found for: [id number] , TOTVOL , CRCLR , PERIOD No results found for: IRON , TIBC , IRONSAT , UIBC Lab Results Component Value Date BILITOT 0.2 11/17/2024 AST 24 11/17/2024 Signed: Elsy Coronel APRN 11/20/2024 9:23 AM Associated attestation - Jose Adair MD - 11/20/2024 6:31 PM EST ATTESTATION: This encounter was done in conjunction with [email or web address]. I provided the substantive portion of thevisit by personally performing review of notes, taking current history, and performing the pertinent physical exam components. I verify that the notes documented by the [facility] are correct. Additionally,I am documenting his renal function seems to be essentially at its baseline. There is minor variations up-and-down but I think overall he stable. My impression and plan related to this encounter is okay for diuretics as indicated by his volume status. I think that resumption of Jardiance is a reasonable step. Sign: Jose Adair MD 11/20/2024 6:30 PM * Gianluca Calles MD - 11/19/2024 2:22 PM EST [facility] MEDICINE PROGRESS NOTE Assessment & Plan Principal Problem: Acute osteomyelitis of left calcaneus (HCC) (POA: Yes) Active Problems: HTN (hypertension) (POA: Yes) A-fib (HCC) (POA: Yes) PAD (peripheral artery disease) (POA: Yes) MERVIN on CPAP (POA: Yes) Diabetes (HCC) (POA: Yes) Stage 3a chronic kidney disease (CKD) (HCC) (POA: Yes) Hyperlipidemia (POA: Yes) Smoker (POA: Yes) Chronic diastolic congestive heart failure (HCC) (POA: Yes) Osteomyelitis (HCC) (POA: Yes) CKD (chronic kidney disease) (Chronic) (POA: Yes) Bacteremia (POA: Unknown) Presence of permanent cardiac pacemaker (POA: Unknown) Mitral valve vegetation (POA: Unknown) Mitral valve regurgitation (POA: Unknown) Resolved Problems: Brief Summary 63 year old male with past medical history of atrial flutter, AV Block, CHFpEF, hypertension, HLD, CKD, PAD and DMII who presented to the hospital for left BKA however his post op coarse was complicated with bacteremia, endocarditis and CHF exacerbation. Patient was originally admitted to the hospital on 11/05 for BKA given chronic left calcaneal polymicrobial osteomyelitis. Unfortunately his hospital course got complicated with MRSA, Enterococcus faecium/faecalis bacteremia. He subsequently underwent a TATIANNA that showed a mobile echodensity posterior to mitral valve annulus adjacent to Watchman device. He has received various antibiotics including ceftaroline, meropenem, aztreonam and is now ma intained on daptomycin monotherapy. 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 at midnight -Pain management with scheduled tylenol, Robaxin, Lyrica and PO dilaudid. Well controlled at this time AHRF; resolved Acute on chronic CHFmrEF; LVEF 43% MERVIN on CPAP Hypertension -Hospital course was complicated with acute hypoxemic respiratory failure secondary to CHF exacerbation. -Echocardiogram showed EF of ~45 percent which is similar to echo last year. -Chest x-ray showed evidence of pulmonary edema. -Cardiology service was consulted. He received aggressive diuresis with IV Bumex. -His oxygen has been weaned down to room air. Patient denies any shortness of breath. -Switched IV Bumex with oral; nephrology recommended holding as he is a euvolemic -GDMT with Lopressor 50 mg twice daily. Holding Jardiance and other meds pending renal function improvement -Reduce amlodipine to 5 mg daily -CPAP at night. Using it with supplemental oxygen Atrial fibrillation s/p watchman AV block s/p PPM -Patient was on anticoagulation until September 2024 which was eventually discontinued after his Watchman procedure and plan was to continue aspirin and amiodarone therapy. He he was originally scheduled to undergo ablation on 01/14/2025. -PPM explanted on 11/17 -Continue amiodarone 200 mg daily and Lopressor 50 mg twice daily. Restart aspirin after his procedures -Cardiac monitoring -EP signed off TABITHA on CKD -Baseline creatinine around 1.4 -Creatinine peaked to 2.1; likely in the setting of infection and CHF exacerbation -S/p IV diuresis as above -P.o. Bumex currently on hold -Plan to place tunneled cath instead of PICC line per nephrology recommendations to continue IV antibiotics as outpatient -Daily BMP DM II -Continue Lantus 10 units daily. -Continue insulin sliding scale and Premeal insulin 3 units 3 times daily. -Holding home metformin and Jardiance -Hypoglycemia protocol Depression Tremors -Patient was previously experiencing bilateral upper and lower extremity tremors. This was discussed with neurology team and patient underwent MRI of the brain which did not show any acute abnormalities. -Neurology team recommended adjusting dose of Lyrica and Wellbutrin since these are new medications. -Decreased Lyrica to 100 mg 3 times daily Normocytic anemia -Counts stable -Likely nephrogenic Quality Metrics DVT PROPHYLAXIS Risk Assessment Scores and Dates: VTE Time Out Orthopedics & NeuroSurgery VTE risk stratification: Standard or low risk (11/05/2024 12:44 PM)VTErisk low and NOT reassessed in last 5 days - Click here to document Chemical Prophylaxis heparin (porcine) 5000 unit/mL injection 5,000 Units Subcutaneous Every 8 hours scheduled [ORDER ONHOLD or LAST DOSE HELD - Please Review] heparin 1000 units/500 mL NS flush for catheter PREMIX Continuous PRN Heparin Sodium (Porcine) 5000Units Last dose 11/16/2024 5:14 PM Mechanical Prophylaxis SCDs are ordered - Bilateral (Knee High) Antibiotic Stewardship (Disclaimer : absence of data in section implies that patient is not on any antibiotics). ANTIBIOTIC TIME OUT Treatment Indication: Bacteremia/endocarditis Current antibiotic/day of therapy: Anti-infectives (From admission, onward) Start Dose/Rate Route Frequency Ordered Stop 11/18/24 1130 cefTRIAXone (ROCEPHIN) 2 g in sodium chloride-MBP (NS) 100 mL IVPB-MBP 2 g 200 mL/hr over 30 Minutes Intravenous Every 24 hours 11/18/24 1101 11/17/24 1400 ceFAZolin (ANCEF) 2 g in 20 mL SWFI syringe (premix) 2 g over 3 Minutes Intravenous Once 11/17/24 1351 11/18/24 0159 11/03/24 0900 DAPTOmycin (CUBICIN) 975 mg in sodium chloride (NS) 0.9 % 50 mL IVPB 10 mg/kg ?? 97.3 kg (Adjusted) 139 mL/hr over 30 Minutes Intravenous Every 24 hours 11/03/24 0849 Subjective Chief complaint No chief complaint on file. Patient is being seen for acute medical problems and follow-up for chronic medical issues as mentioned in the assessment and plan above. Overnight Events/Patient Discussion: Patient was seen and examined today. No acute events overnight. Resting comfortably in bed. No current complaints or concerns. Objective Vitals: 11/19/24 0008 11/19/24 0420 11/19/24 0815 11/19/24 1018 BP: (!) 113/57 139/60 (!) 111/53 Pulse: 61 (!) 58 (!) 58 (!) 58 Resp: 18 Temp: 96.4 ??F (35.8 ??C) 97 ??F (36.1 ??C) SpO2: 95% 96% 95% 11/19/24 1224 11/19/24 1300 11/19/24 1410 11/19/24 1415 BP: (!) 104/51 (!) 106/58 106/59 (!) 115/55 Pulse: (!) 51 (!) 50 (!) 52 (!) 53 Resp: 18 16 17 18 Temp: 97.6 ??F (36.4 ??C) SpO2: 95% 95% 94% 92% Physical Exam Constitutional: Appearance: Normal appearance. HENT: Head: Normocephalic and atraumatic. Cardiovascular: Rate and Rhythm: Normal rate and regular rhythm. Pulses: Normal pulses. Heart sounds: Normal heart sounds. Pulmonary: Effort: Pulmonary effort is normal. Breath sounds: Normal breath sounds. No wheezing or rales. Abdominal: General: Abdomen is flat. There is no distension. Palpations: Abdomen is soft. Tenderness: There is no abdominal tenderness. Musculoskeletal: Right lower leg: No edema. Comments: Left BKA Neurological: General: No focal deficit present. Mental Status: He is alert and oriented to person, place, and time. Relevant data reviewed Results from last 7 days Lab Units 11/19/24 0754 WHITE BLOOD CELL COUNT Thou/uL 10.1 HEMOGLOBIN g/dL 8.2* HEMATOCRIT % 26.6* PLATELET COUNT Thou/uL 354 Results from last 7 days Lab Units 11/19/24 1139 11/19/24 0806 11/19/24 0754 SODIUM mmol/L -- -- 132* POTASSIUM mmol/L -- -- 3.7 CHLORIDE mmol/L -- -- 92* CO2 mmol/L -- -- 30 BUN mg/dL -- -- 43* CREATININE mg/dL -- -- 1.8* EGFR -- -- 42* GLUCOSE mg/dL -- -- 169* GLUCOSE, POC mg/dL 205* < > -- CALCIUM mg/dL -- -- 9.1 < > = values in this interval not displayed. Sign Gianluca Callse MD 11/19/2024 2:22 PM * Ena Mtz MD - 11/19/2024 1:10 PM EST Images from the original note were not included. [facility] Consult progress Note Name: Blas Genao Age: 63 y.o. 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 ID was consulted on 11/03-> recommended to start daptomycin/meropenem given prior history of MDRO's and follow cultures. 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 mitral valve endocarditis with small focal echodensity seen posterior to the mitral valve annulus and adjacent to Watchman device -Given the bacteremia, have to assume the watchman's device is infected -Discussed with EP watchman's device cannot be removed transvenously 3. acute hypoxic respiratory failure secondary to volume overload. Clinically improving, weaned to room air 4. Polymicrobial bacteremia: Source was left foot infection/ osteomyelitis; source control achievedwith left BKA on 11/05 -11/06 ,11/07,blood cultures = NGTD -11/04 (2) bld cx:MRSA -11/02(10/31) blood cultures: MRSA, Enterococcus faecalis, Enterococcus faecium 4. Intermittent twitching of the hands, MRI of the brain showed no acute intercranial findings or suspicious intracranial lesions 5. H/O atrial fibrillation s/p Watchman device implantation in 2017 6.Right TMA with chronic wounds WBC: 10.1 platelets: 354 BUN/creatinine: 43/1.8 CK: 49 Recommendations/Plan: -Continue IV daptomycin 10 mg/kg every 24 hours. CK within normal limits -Add ceftriaxone 2 g IV every 24 hours for synergistic effect for Enterococcus faecalis and Enterococcus faecium and to maximize medical treatment -Will need long-term IV antibiotics. No PICC line as per nephrology. Patient will have Pproline placed -Recommend repeat TATIANNA to evaluate for mitral valve focal echodensity adjacent to watchman's device towards the end of treatment. Discussed with patient at length regarding possible risk of recurrent infection off antibiotics if Watchman device is infected -No good long-term oral antibiotic option to cover all 3 organisms including MRSA, ampicillin sensitive Enterococcus and Enterococcus faecium Discharge antibiotics: Daptomycin 975 mg IV every 24 hours through December 28, 2024 Ceftriaxone 2 gram IV every 24 hours through December 28, 2024 CBC, LFTs, creatinine with EGFR, CK, ESR, CRP once a week while on IV antibiotics. Fax results to [phone] 4. Patient will need to be scheduled for repeat TATIANNA end november Patient would like to follow-up with infectious disease close to home. I have communicated with Dr. Saritha Coffey office (infectious disease) at [phone]. She stated that this patient is very complicated for [facility] and she will not be following this patient He can follow-up with me in my office in 3 to 4 weeks. I would recommend that he be scheduled for repeat TATIANNA end november at here at [facility] Current antibiotic/day of therapy: Anti-infectives (From admission, onward) Start Dose/Rate Route Frequency Ordered Stop 11/18/24 1130 cefTRIAXone (ROCEPHIN) 2 g in sodium chloride-MBP (NS) 100 mL IVPB-MBP 2 g 200 mL/hr over 30 Minutes Intravenous Every 24 hours 11/18/24 1101 11/17/24 1400 ceFAZolin (ANCEF) 2 g in 20 mL SWFI syringe (premix) 2 g over 3 Minutes Intravenous Once 11/17/24 1351 11/18/24 0159 11/03/24 0900 DAPTOmycin (CUBICIN) 975 mg in sodium chloride (NS) 0.9 % 50 mL IVPB 10 mg/kg ?? 97.3 kg (Adjusted) 139 mL/hr over 30 Minutes Intravenous Every 24 hours 11/03/24 0849 Sign Ena Mtz MD, FACP, CWSP [facility] Diseases Available via [employer] SUBJECTIVE Afebrile, status post AICD extraction CURRENT MEDICATIONS: Reviewed OBJECTIVE PHYSICAL EXAMINATION: Vitals: 11/19/24 0500 11/19/24 0815 11/19/24 1018 11/19/24 1224 BP: 139/60 (!) 111/53 (!) 104/51 BP Location: Right arm Right arm Right arm Patient Position: Lying Lying Lying Pulse: (!) 58 (!) 58 (!) 51 Resp: 18 18 18 Temp: 97 ??F (36.1 ??C) 97.6 ??F (36.4 ??C) TempSrc: Tympanic Tympanic SpO2: 95% 95% Weight: 99.3 kg (218 lb 14.7 oz) Height: Intake/Output Summary (Last 24 hours) at 11/19/2024 1310 Last data filed at 11/19/2024 1030 Gross per 24 hour Intake 261 ml Output 3120 ml Net -2859 ml General appearance- NAD Extremities-left BKA DEVICE TIME OUT Peripheral IV - Single Lumen (Adult) 11/12/24 1210 cephalic vein (lateral side of arm), left 22 gauge;1 in length;3/4 in length (Active) Number of days: 7 Peripheral IV - Single Lumen (Adult) 11/12/24 1744 median vein (underside of arm), right 22 gauge;1in length (Active) Number of days: 7 52 min spent reviewing records, evaluating the patient, discussing with other providers and formulating a plan of care and coordination of care with his [id number] infectious disease physician and office Of note, some information is being carried forward from prior records for informational purposes only and is being cited so that efficiency, safety and quality of this patient's care is not compromised. This report was generated using [employer] dictation software. Although every attempt has been made by the provider to proofread this document, occasional misspellings and typographical errors may still be present. * Roberto Carranza PTA - 11/19/2024 1:01 PM EST Physical Therapy Contact Note Flowsheet Data 11/19/24 1301 Physical Therapy Time and Intention PT Follow-Up Visit patient not available Mode of Treatment physical therapy Comment, Session Not Performed Attempted PT follow up x2 on this date. Patient working with nsg staff on first attempt and off unit on second attempt. PT will follow up as appropriate/ as schedule allows. Sign: Roberto Carranza PTA * Juany Ospina RN - 11/19/2024 1:00 PM ESTSummary: Nurse navigator note Ortho Trauma Nurse Navigator Rounding Note Attempted to meet with patient, however, patient was off unit. Patient has been previously providedwith nurse navigator's direct contact information to contact with any questions or concerns. NN left stoplight for his review and will hopland back next week to review with the patient. * Valencia Lau APRN - 11/19/2024 8:02 AM EST Images from the original note were not included. [facility] PROGRESS NOTE Outpatient Retail Shift Manager: [facility] Assessment & Plan Assessment 63 year old male with hypertension, hyperlipidemia, diabetes, CKD stage III, peripheral artery disease, diabetes, foot infection with osteomyelitis, complete heart block s/p dual chamber pacemaker [id number], atrial fibrillation s/p multiple ablations and cardioversions and Watchman device 2017; admitted now with polymicrobial bacteremia including Enterococcus and MRSA. He had a nonhealing left lower extremity ulcer and is now status left BKA. TATIANNA showing small mobile echodensity posterior to MV annulus and adjacent to watchman device- now s/p device extraction and Micra implantation. Acute CHFmrEF LVEf 43% -Significant diuresis since admission, plan to transition to home dose of p.o. Bumex 2 mg daily tomorrow (will hold today as he is near euvolemic and creatinine 1.8, appreciate nephrology recs) -Closely monitor renal function and electrolytes with diuresis, maintain K > 4 and mag > 2 -Strict daily weights and I's and O's -GDMT: jardiance on hold due to procedures and renal dysfunction- would resume when able, beta leeroy as below, plan to add ARB and aldactone pending renal function. -BP soft, plan to decrease Norvasc to 5 mg daily Afib, CHB s/p dual chamber pacemaker -S/p extraction of pacemaker 11/17 due to bacteremia and Micra pacemaker insertion with Dr. Pabon -Post op device check shows stable PM parameters and function -Continue amiodarone 200 mg daily and Lopressor 50 mg BID Concern for mitral valve endocarditis: -TATIANNA (11/12) showing small mobile echodensity posterior to MV annulus and adjacent to watchman device - hold off on CT surg consult for now - POD day 1 pacemaker extraction - continue IV antibiotics/repeat TATIANNA end of November per ID, planning for PICC line placement today - Brain MRI without acute intracranial findings or suspicious intracranial lesions, no evidence of septic emboli - Continue telemetry monitoring Subjective / 24h Events No acute cardiac concerns overnight Awaiting PICC line placement today Objective Telemetry Reviewed: Atrial sensed V paced Last Vitals Pulse:(!) 58,Resp:18,BP:139/60,SpO2:95 %,Weight:99.3 kg (218 lb 14.7 oz) Temp Last 24 hrs: Temp Min: 96.1 ??F (35.6 ??C) Max: 97 ??F (36.1 ??C) Intake/Output Summary (Last 24 hours) at 11/19/2024 0854 Last data filed at 11/19/2024 0815 Gross per 24 hour Intake 356 ml Output 3300 ml Net -2944 ml Physical Exam Gen : comfortable, alert JVP : 9cm HEENT: no icterus or pallor, moist oral mucosa Lungs : good inspiratory effort, no crackles, no wheezing CVS : regular rhythm, normal S1 S2, systolic murmur at the apex Abdo : soft, non-distended, non-tender, no organomegaly appreciated Peripheries : warm, normal pulses, no edema Neuro: oriented x3, no focal abnormalities Skin: dry, no cyanosis, no rash Medications Medications Scheduled Medication Ordered Dose/Rate, Route, Frequency Last Action acetaminophen (TYLENOL) tablet 975 mg 975 mg, PO, Q6H JUDSON Given, 975 mg at 11/18 2115 amiODARONE (PACERONE) tablet 200 mg 200 mg, PO, Daily Given, 200 mg at 11/18 103 amLODIPine (NORVASC) tablet 10 mg 10 mg, PO, Daily Given, 10 mg at 11/18 102 bumetanide (BUMEX) injection 1 mg 1 mg, IV, Q24H Given, 1 mg at 11/18 110 buPROPion (WELLBUTRIN SR) 12 hr tablet 150 mg 150 mg, PO, BID Given, 150 mg at 11/18 2117 calcium citrate (CALCITRATE) tablet 950 mg 950 mg, PO, BID with meals Given, 950 mg at 11/18 1734 cefTRIAXone (ROCEPHIN) 2 g in sodium chloride-MBP (NS) 100 mL IVPB-MBP 2 g, IV, Q24H New Bag, 2 g at 11/18 1235 chlorhexidine gluconate 2 % wipes - urethral catheter CHG application No Dose/Rate, TOP, Daily Given, No Dose/Rate at 11/18 1031 cholecalciferol tablet 2,000 Units 2,000 Units, PO, Daily Given, 2,000 Units at 11/18 1103 cyanocobalamin (VITAMIN B-12) tablet 2,500 mcg 2,500 mcg, PO, Daily Given, 2,500 mcg at 11/18 1027 DAPTOmycin (CUBICIN) 975 mg in sodium chloride (NS) 0.9 % 50 mL IVPB 10 mg/kg, IV, Q24H New Bag, 975 mg at 11/18 1426 donepezil (ARICEPT) tablet 10 mg 10 mg, PO, QAM Given, 10 mg at 11/18 1105 [Provider Held] empagliflozin (JARDIANCE) 25 mg On hold since Fri11/04/2024 at 1503 until manually unheld; held by Juaquin Kern MDHold Reason: Pre-procedure On hold since Fri11/04/2024 at 1503 until manually unheld (Needs Review) Hold reason: Pre-procedure 25 mg, PO, Daily Given, 25 mg at 11/04 0756 folic acid (FOLVITE) tablet 1 mg 1 mg, PO, Daily Given, 1 mg at 11/18 1028 [Provider Held] glimepiride (AMARYL) tablet 2 mg On hold since Fri11/04/2024 at 1503 until manually unheld; held by Gayle Rey Reason: Pre-procedure On hold since Fri11/04/2024 at 1503 until manually unheld (Needs Review) Hold reason: Pre-procedure 2 mg, PO, Daily with breakfast Given, 2 mg at 11/04 0757 [Provider Held] heparin (porcine) 5000 unit/mL injection 5,000 Units On hold since Fri11/16/2024 [id number] until manually unheld; held by Herberth Whitmore Reason: Pre-procedure On hold since Fri11/16/2024 at 2000 until manually unheld (Needs Review) Hold reason: Pre-procedure 5,000 Units, SC, Q8H JUDSON Given, 5,000 Units at 11/16 171 insulin glargine (LANtus/SEMGLEE) 100 units/mL injection 10 Units 10 Units, SC, Daily Given, 10 Units at 11/18 103 insulin lispro (HumaLOG/ADMELOG) 100 units/mL injection 1-6 Units 1-6 Units, SC, TID with meals Given, 5 Units at 11/18 1733 insulin lispro (HumaLOG/ADMELOG) 100 units/mL injection 3 Units 3 Units, SC, TID with meals Given, 3 Units at 11/18 1733 methocarbamol (ROBAXIN) tablet 1,000 mg 1,000 mg, PO, 4x Daily Given, 1,000 mg at 11/18 2117 metoPROLOL TARTRATE (LOPRESSOR) tablet 50 mg 50 mg, PO, BID Given, 50 mg at 11/18 2118 multivitamin with minerals tablet 1 tablet 1 tablet, PO, Daily Given, 1 tablet at 11/18 102 nicotine (NICODERM CQ) 21 MG/24HR patch 1 patch 1 patch, TD, Daily Patch Applied, 1 patch at 11/18 103 PANTOprazole (PROTONIX) EC tablet 40 mg 40 mg, PO, Daily Given, 40 mg at 11/18 1029 polyethylene glycol (miraLAx) packet 17 g 17 g, PO, Daily Given, 17 g at 11/18 1040 [Provider Held] pravastatin (PRAVACHOL) tablet 20 mg On hold since Fri11/03/2024 at 0850 until manually unheld; held by Ena Mtz MDHold Reason: Other - Comment requiredHold Comments: While on IV daptomycin On hold since Fri11/03/2024 at 0850 until manually unheld (Needs Review) Hold reason: Other - Comment required, Hold comment: While on IV daptomycin 20 mg, PO, Daily Ordered pregabalin (LYRICA) capsule 100 mg 100 mg, PO, TID Given, 100 mg at 11/18 2116 senna-docusate (SENNA-S) 8.6-50 MG tablet 2 tablet 2 tablet, PO, BID Given, 2 tablet at 11/18 2118 thiamine mononitrate (VITAMIN B-1) tablet 200 mg 200 mg, PO, Daily Given, 200 mg at 11/18 1031 PRN Medication Ordered Dose/Rate, Route, Frequency Last Action acetaminophen (TYLENOL) tablet 975 mg 975 mg, PO, Q6H PRN Ordered benzocaine-menthol (CHLORASEPTIC) 6-10 MG lozenge 1 lozenge 1 lozenge, MT, Q2H PRN Ordered bisacodyl (DULCOLAX) suppository 10 mg 10 mg, RE, Daily PRN Ordered calcium carbonate (TUMS) chewable tablet 1,000 mg 1,000 mg, PO, Q12H PRN Ordered carboxymethylcellulose (REFRESH PLUS) 0.5 % ophthalmic solution 2 drop 2 drop, Each Eye, Q2H PRN Ordered HYDROmorphone (DILAUDID) tablet 2 mg (Or Linked Group #1) 2 mg, PO, Q3H PRN See Alternative, 11/19 0450 HYDROmorphone (DILAUDID) tablet 4 mg (Or Linked Group #1) 4 mg, PO, Q3H PRN Given, 4 mg at 11/19 0450 ipratropium-albuterol (DUONEB) 0.5-2.5 mg/3 mL nebulizer solution 3 mL 3 mL, NEBULIZATION, Q2H PRN Given, 3 mL at 11/07 1025 lactulose (ENULOSE) 10 gm/15 mL solution 20 g 20 g, PO, Q4H PRN Ordered melatonin tablet 3 mg 3 mg, PO, Nightly PRN Given, 3 mg at 11/16 2215 naloxone (NARCAN) 0.4 mg/mL injection 0.4 mg 0.4 mg, IV, Q5 Min PRN Ordered naloxone (NARCAN) 0.4 mg/mL injection 0.4 mg 0.4 mg, IV, Q5 Min PRN Ordered ondansetron (ZOFRAN) injection 4 mg 4 mg, IV, Q6H PRN Given, 4 mg at 11/17 1639 Relevant data reviewed Results from last 7 days Lab Units 11/19/24 0806 11/18/24 2104 11/18/24 1656 11/18/24 0753 11/18/24 0715 11/17/24 0720 11/17/24 0500 11/16/24 0737 11/16/24 0723 SODIUM mmol/L -- -- -- -- 129* -- 128* -- 130* POTASSIUM mmol/L -- -- -- -- 3.6 -- 3.7 -- 3.6 CHLORIDE mmol/L -- -- -- -- 89* -- 87* -- 87* CO2 mmol/L -- -- -- -- 29 -- 30 -- 32 BUN mg/dL -- -- -- -- 45* -- 54* -- 55* CREATININE mg/dL -- -- -- -- 1.8* -- 1.8* -- 1.9* CALCIUM mg/dL -- -- -- -- 8.9 -- 9.4 -- 9.1 GLUCOSE mg/dL -- -- -- -- 114* -- 171* -- 190* GLUCOSE, POC mg/dL 190* 253* 305* < > -- < > -- < > -- EGFR -- -- -- -- 42* -- 42* -- 39* ALBUMIN g/dL -- -- -- -- -- -- 2.9* -- -- PROTEIN, TOTAL g/dL -- -- -- -- -- -- 6.6 -- -- BILIRUBIN TOTAL mg/dL -- -- -- -- -- -- 0.2 -- -- ALK PHOS U/L -- -- -- -- -- -- 117 -- -- ALT U/L -- -- -- -- -- -- 19 -- -- AST U/L -- -- -- -- -- -- 24 -- -- < > = values in this interval not displayed. Lab Results Component Value Date MG 2.0 11/18/2024 Results from last 7 days Lab Units 11/19/24 0754 11/18/24 0715 11/17/24 0500 WHITE BLOOD CELL COUNT Thou/uL 10.1 12.3* 11.2* HEMOGLOBIN g/dL 8.2* 8.1* 8.2* HEMATOCRIT % 26.6* 25.5* 25.0* PLATELET COUNT Thou/uL 354 349 373 Lab Results Component Value Date HSTNT 26 (H) 11/08/2024 HSTNT 29 (H) 11/07/2024 HSTNT 26 (H) 11/07/2024 Lab Results Component Value Date PROBNP 429 (H) 11/15/2024 Lab Results Component Value Date HGBA1C 8.7 (H) 09/03/2024 Pertinent Cardiac & Imaging Studies Recent Results (from the past 8760 hour(s)) ECG 12 lead Collection Time: 11/07/24 2:58 PM Result Value Status Systolic BP 116 Final Diastolic BP 57 Final Ventricular rate 62 Final Atrial rate 55 Final QRS duration 168 Final Q-T interval 506 Final QTC calculation (Bazett) 513 Final R axis 104 Final T axis -39 Final Narrative Ventricular-paced rhythm Abnormal ECG When compared with ECG of 02-Nov-2024 21:34, Vent. rate has decreased by 8 bpm Confirmed by MD Claude, [facility] ([id number]) on 11/07/2024 6:25:53 PM TATIANNA 11/11/24 There is a small mobile echodensity posterior to the mitral valve annulus, adjacent to the watchmandevice (clip 62, 64). This could be a possible vegetation versus benign fibrous strand however in the setting of bacteremia vegetation cannot be excluded. Left ventricular systolic function is mildly decreased with an estimated ejection fraction of 40-44%. Right ventricular systolic function is mildly reduced. There is a patent foramen ovale with predominant left to right shunting indicated by color Doppler. There is mild apical tethering of the mitral valve leaflets.The mitral leaflets are mildly thickened. There is moderate functional mitral regurgitation with a centrally directed jet. There is no mitral valve stenosis. The tricuspid valve annulus is mildly dilated. There is moderate to severe tricuspid regurgitation. Compared to previous study on 11/04/2024, Device, pacemaker wire and valvular structures are better visualized. A small focal echodensity is seen posterior to mitral valve annulus andadjacent to watchman device. Echo 11/04/2024: The left ventricle is mildly dilated. Left ventricular systolic function is mildly decreased. The quantitative EF is 43% by 3D imaging, and 46% by 2D Martinez biplane. The right ventricle is dilated. Right ventricular systolic function is normal. A pacer wire is present in the right ventricle. Right atrial cavity is severely dilated. A pacemaker wire is present in the right atrium. The mitral leaflets are moderately thickened. There is moderate to severe mitral regurgitation. Cannot rule out vegetation on the mitral valve leaflets. There is moderate tricuspid regurgitation. The estimated right ventricular systolic pressure is 44 mmHg. There is mild aortic regurgitation. The pulmonic valve was not well visualized. Compared to previous outside study report from [facility] on 08/05/2024, Mitral and tricuspid regurgitation were not previously reported. Recommend transesophageal echocardiogram if clinically indicated. Brain MRI 11/12/2024 No acute intracranial findings or suspicious intracranial lesions. No septic emboli. All additional appropriate imaging studies within the past 24 hours reviewed - images reviewed and independently interpreted. Sign Valencia Lau APRN [facility] [place] 11/19/2024 8:54 AM * Lela Amor MD - 11/18/2024 12:03 PM EST Progress Note Principal Problem: Acute osteomyelitis of left calcaneus (HCC) (POA: Yes) Active Problems: HTN (hypertension) (POA: Yes) A-fib (HCC) (POA: Yes) PAD (peripheral artery disease) (POA: Yes) MERVIN on CPAP (POA: Yes) Diabetes (HCC) (POA: Yes) Stage 3a chronic kidney disease (CKD) (HCC) (POA: Yes) Hyperlipidemia (POA: Yes) Smoker (POA: Yes) Chronic diastolic congestive heart failure (HCC) (POA: Yes) Osteomyelitis (HCC) (POA: Yes) CKD (chronic kidney disease) (Chronic) (POA: Yes) Bacteremia (POA: Unknown) Presence of permanent cardiac pacemaker (POA: Unknown) Mitral valve vegetation (POA: Unknown) Mitral valve regurgitation (POA: Unknown) Resolved Problems: Assessment & Plan Brief Hospital course 63-year-old male with past medical history of atrial flutter, AV block, heart failure with preserved ejection fraction, hypertension, hyperlipidemia, CKD, PAD, DM type II presents to the ED for left 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 status post calcaneal ostectomy on 09/17/2024 with wound VAC placement He underwent left BKA on 11/05/2024, left foot wound grew MRSA, Enterococcus faecalis and VRE chronicbacterium species and gram-negative bacilli Hospital course was complicated with MRSA and VRE/Enterococcus faecalis/VCM bacteremia, ID and cardiology were consulted, transthoracic echocardiogram withsuspicion for MV and pacemaker lead endocarditis and patient was started on daptomycin and ceftaroline for management he developed acute hypoxic respiratory failure secondary to CHF exacerbation and was transferred to medical stepdown unit for further management in the stepdown he was aggressively diuresed with Bumex drip and was weaned down on supplemental oxygen had a central line placed EP cons ulted for possible infected pacer wire oxygen requirements improved and he is currently on room airsaturating more than 92%, MRI brain ordered to eval for septic emboli and patient reported tremor did not show any significant abnormalities continued on diuresis initially held off on TATIANNA again due to anesthesia recommending more diuresis and optimizing respiratory status prior to the procedure IDdiscontinued aztreonam patient had worsening generalized enlargement of urine output yesterday was improving with bilateral congestion proBNP downtrending and oxygen requirement to room air status post TATIANNA in p.m. to 13 and was transferred to the floor with telemetry in the medical floor he remainson IV antibiotic with daptomycin and ceftaroline has been discontinued no septic emboli on the MRI brain, Bumex drip was discontinued and currently on Bumex 1 mg IV twice daily continue amiodarone and Lopressor he was also seen by neurology on the floors due to intermittent jerking tremor like movements of both hands no significant interventions Status post operative day 1 status post dual pacemaker system extraction for polymicrobial bacteremia including Enterococcus and MRSA and implanted for AV Micra PPM with Dr. Pabon He tolerated the procedure well, No further interventions from a PE can follow-up on 12/07/2024 in their office As per ID he will need long-term IV antibiotics okay to place long-term 24 hours after extraction of AICD will request line placement tomorrow Likely will request PICC line placement on 11/19/2024 Continue all other medications Updated plan of care to the patient CODE STATUS full Expected Discharge Date: 11/19/2024 Subjective Denies any shortness of breath chest pain but she is very upset about not getting pain medications,not getting she had to eat and drink and so 1 Objective Last Vitals Pulse:(!) 59,Resp:18,BP:(!) 115/56,SpO2:94 % , Weight:99.2 kg (218 lb 11.1 oz) Temp Last 24 hrs: Temp Min: 96 ??F (35.6 ??C) Max: 97.8 ??F (36.6 ??C) Last temp: 97.8 ??F (36.6 ??C) (Tympanic) Intake/Output Summary (Last 24 hours) at 11/18/2024 1212 Last data filed at 11/18/2024 0530 Gross per 24 hour Intake 2010 ml Output 1550 ml Net 460 ml Physical Exam General appearance: alert, appears stated age, and cooperative Lungs: clear to auscultation bilaterally Heart: regular rate and rhythm, S1, S2 normal, no murmur, click, rub or gallop Abdomen: soft, non-tender; bowel sounds normal; no masses, no organomegaly Relevant data reviewed Notable labs are: White Blood Cell Count Date Value Ref Range Status 11/18/2024 12.3 (H) 4.0 - 11.0 Thou/uL Final Hemoglobin Date Value Ref Range Status 11/18/2024 8.1 (L) 13.0 - 17.7 g/dL Final Hematocrit Date Value Ref Range Status 11/18/2024 25.5 (L) 39.0 - 54.0 % Final Platelet Count Date Value Ref Range Status 11/18/2024 349 150 - 450 Thou/uL Final Lab Results Component Value Date NA 129 (L) 11/18/2024 K 3.6 11/18/2024 CL 89 (L) 11/18/2024 CO2 29 11/18/2024 CO2 22 11/07/2024 BUN 45 (H) 11/18/2024 CREAT 1.8 (H) 11/18/2024 GLUC 253 (H) 11/18/2024 GLUC 114 (H) 11/18/2024 GLUC 119 (H) 09/10/2024 Lab Results Component Value Date CALCIUM 8.9 11/18/2024 MG 2.0 11/18/2024 PHOS 3.5 11/17/2024 Lab Results Component Value Date AST 24 11/17/2024 ALT 19 11/17/2024 ALKPHOS 117 11/17/2024 BILITOT 0.2 11/17/2024 BILIDIR 0.1 11/11/2024 ALBUMIN 2.9 (L) 11/17/2024 PROT 6.6 11/17/2024 No results found for: AMYLASE , LIPASE Lab Results Component Value Date PROBNP 429 (H) 11/15/2024 Lab Results Component Value Date HGBA1C 8.7 (H) 09/03/2024 No results found for: TSH Imaging Studies XR Chest 1 view Result Date: 11/18/2024 EXAMINATION: XR CHEST CLINICAL INFORMATION: Post op Micra AV implant. COMPARISON: XR Chest 11/10/2024 TECHNIQUE: Frontal view of the chest was obtained. FINDINGS: Status post AVM planned. Stable cardiac size. The airspace disease in the bilateral upper lobes is mildly improved. No pneumothorax or pl eural effusion. Mildly improving bilateral upper lobe airspace disease Pacemaker Evaluation Result Date: 11/18/2024 Pacemaker evaluation completed on B10E, device interrogation ordered for post- OP. Presenting rhythm: AM-STOKER INSTALLATION MECHANIC @ 69 bpm. Underlying rhythm: No ventricular response greater than 40 bpm. AM-STOKER INSTALLATION MECHANIC @ 84.8%. Battery and device parameters evaluated and within normal limits. Normal pacemaker function. Micra pacemakers do not record events. Sri Pena RN Transesophageal Echo-Anesthesia Result Date: 11/17/2024 Right ventricular systolic function is mildly reduced. A pacer wire is present in the right ventricle. Left ventricular systolic function is moderately decreased with an estimated ejection fraction of 35-39%. There is global hypokinesis without regional variation. There is a patent foramen ovale with predominant left to right shunting indicated by color Doppler. A watchman device is noted. No flow around it. It was noted a small protuberance previously seen in other echos. Difficult to assess if this is a vegetation. There is mild to moderate tricuspid regurgitation. There is moderate functional mitral regurgitation. There is no mitral valve stenosis. Leaflet tethering is noted. POST PROCEDURE CONCLUSIONS TELEMETRY Patient is currently on Telemetry. I have reviewed the telemonitor and following is my assessment: Reason For Order: Front End Mechanic Orders Ordered Cardiac monitoring / telemetry Until discontinued Question Answer Comment Clinical Indications For Cardiac Monitoring Cardiac (Rhythm Related) Rhythm related indications Post EP Procedure (Ablation, PPM, ICD) 11/17/24 1837 Cardiac monitoring / telemetry Until discontinued Question: Clinical Indications For Cardiac Monitoring Answer: Critical Care/NICU/PACU 11/07/24 1209 Events Noted in the Last 24 hrs: none Lela Amor MD 11/18/2024 12:12 PM * Aditi Jones PA-C - 11/18/2024 10:45 AM EST PHYSICAL MEDICINE & REHABILITATION CONSULT FOLLOW-UP NOTE Patients Name: Blas Genao : 1960 MR Number: [id number] Reason for Consultation: Rehabilitation potential Date of Admission to hospital: 11/02/2024 6:10 PM PCP: Lee Fabian MD Assessment: Blas Genao is a 63 y.o. 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 He underwent L BKA with Dr. Camejo on 11/05. Course complicated by bacteremia with concern for mitral valve endocarditis/pacer lead infection s/p device extraction and Micra PPM implantation on 11/[address] Pabon, hypoxic respiratory failure requiring CPAP, acute CHFmrEF, pain. He is NWB to [facility]. Rehab Diagnosis: s/p left BKA Amputation: 05.4 Unilateral Lower Limb Below the Knee /osteomyelitis Impairments: Left below the knee amputation, impaired mobility, impaired transfers, impaired balance, impaired ability to perform self-cares, pain, neuropathic pain, decreased cardiopulmonary endurance, and decreased activity tolerance Recommendations: At this time, anticipate that patient would benefit most from acute inpatient rehab once medically ready pending adequate home support, tolerance to therapy and plan for manager long term care antibiotics. Will follow progress with therapy. Sleep: Encourage good sleep hygiene. Optimize sleep/wake cycles. Keep lights on and stimulus duringthe day. Dark room and minimize nighttime interruptions. Currently on melatonin 3 mg q HS. Bladder:Soto catheter in place. Bowel: To prevent constipation with current pain medication management, continue scheduled senna-docusate 2 tablets nightly and MiraLAX daily. Diet: Diabetic diet Pain control: Currently on Lyrica 100 mg TID, Tylenol 975 mg every 6 hours prn dilaudid 2-4 mg every 3 hours prn Mood/cognition: Currently on aricept 10 mg daily, bupropion 150 mg BID Continue PT and OT to maximize functional independence with mobility and self-cares. Please mobilize patient out of bed as able. Turn and reposition every 2 hrs to prevent skin breakdown. Keep skin clean and dry. Follow-up with PM&R as outpatient. Will arrange. Thank you for this consult. We will continue to follow. Please TT PM&R Consults (Physical Medicine and Rehabilitation) if any questions. Subjective: The patient was seen at the bedside this morning. Was able to work with OT this morning but does report having pain in his left chest/shoulder after having pacemaker exchanged yesterday. Had an MRI of the brain due to intermittent tremors that showed no acute abnormalities (evaluated by neurology). Current Functional Status: PT 11/17 Bed Mobility Assessment/Intervention: Supine > sit with supervision. HOB elevated, bed railing utilized. Transfers Assessment/Intervention: Sit <> stand with min Ax1 and RW. Cues for sequencing. Gait/Stair Assessment/Intervention: Able to take 3-4 hops to R from bed > recliner with min Ax1 and RW. Cues for sequencing and safety. Patient demonstrated good self awareness throughout. Activity Tolerance/Endurance Assessment/Intervention: Fair for PT follow up. Vitals: Unmonitored/ asymptomatic Education: Role of PT, mobility techniques, safety, and IP PT goals OT 11/18 Interventions to Optimize ADL Performance Self Feeding: Pt was finishing breakfast at start of session reporting that he has had multiple recent spills 2/2 UE tremors. No tremors were noted or present during brief observation of self feedinghowever pt reports they are inconsistent at time. Reviewed technique of using B UE support on cups and mugs to minimize risk of spillage however pt reports he has attempted and doesn't feel is has muc h of an affect. Grooming: Pt was able to wash face and hands while sitting EOB with set up assist. Bathing: Pt was able to wash upper body, R leg to ankle and eleanor-area while sitting EOB and shifting weight side to side with CG assist after set up. Increased pain reported in area of L chest and arm with reach across body to wash R side. Dressing: Pt was educated on benefits of donning L UE into clothing first and removing last in minimizing discomfort with pt able to complete from EOB with CG assist. Transfers and Functional Mobility: Supervision for supine <> sit EOB with pt using R UE and LE to assist with transition. While supine he was able to reposition up in bed, again using R UE and LE to facilitate with only supervision. Pt declined to attempt standing 2/2 pain in L arm and chest with pushing/pulling however was able to scoot up along EOB using R arm and leg with min assist. Therapeutic Exercise: Encouraged pt to use L UE for functional task performance as tolerated to minimize stiffness and maintain optimal strength. Neuromuscular Re-education: Pt was able to tolerate dynamic sitting balance EOB without assistance throughout ADL performance. Endurance/Activity Tolerance: good for session completed on RA without reports of SOB or dizziness. Allergies Allergen Reactions Lisinopril Other (See Comments) Dehydration Current Facility-Administered Medications Medication Dose Route Frequency Provider Last Rate Last Admin acetaminophen (TYLENOL) tablet 975 mg 975 mg Oral Q6H [facility] Corbin Lamb ASSOCIATE THEATRE PROFESSOR 975 mg at 026 acetaminophen (TYLENOL) tablet 975 mg 975 mg Oral Q6H PRN Corbin Lamb APRN amiODARONE (PACERONE) tablet 200 mg 200 mg Oral Daily Corbindenise Lamb ASSOCIATE THEATRE PROFESSOR 200 mg at 11/18/24 1030 amLODIPine (NORVASC) tablet 10 mg 10 mg Oral Daily Corbin Lamb, ASSOCIATE THEATRE PROFESSOR 10 mg at 11/18/24 1029 benzocaine-menthol (CHLORASEPTIC) 6-10 MG lozenge 1 lozenge 1 lozenge Mouth/Throat Q2H PRN Baldomero Hinds APRN bisacodyl (DULCOLAX) suppository 10 mg 10 mg Rectal Daily PRN Corbin Lamb APRN bumetanide (BUMEX) injection 1 mg 1 mg Intravenous Q24H Corbin Lamb APRN 1 mg at 11/18/24 1103 buPROPion (WELLBUTRIN SR) 12 hr tablet 150 mg 150 mg Oral BID Corbindenise Lamb, ASSOCIATE THEATRE PROFESSOR 150 mg at 11/18/24 1028 calcium carbonate (TUMS) chewable tablet 1,000 mg 1,000 mg Oral Q12H PRN Corbin Lamb ASSOCIATE THEATRE PROFESSOR calcium citrate (CALCITRATE) tablet 950 mg 950 mg Oral BID with meals Corbin Lamb ASSOCIATE THEATRE PROFESSOR 950 mgat 11/18/24 1105 carboxymethylcellulose (REFRESH PLUS) 0.5 % ophthalmic solution 2 drop 2 drop Each Eye Q2H PRN Gretel Hinds APRN cefTRIAXone (ROCEPHIN) 2 g in sodium chloride-MBP (NS) 100 mL IVPB-MBP 2 g Intravenous Q24H MD Dylan 200 mL/hr at 11/18/24 1235 2 g at 11/18/24 1235 chlorhexidine gluconate 2 % wipes - urethral catheter CHG application Topical Daily Corbin Lamb ASSOCIATE THEATRE PROFESSOR Given at 11/18/24 1031 cholecalciferol tablet 2,000 Units 2,000 Units Oral Daily Corbin Lamb, ASSOCIATE THEATRE PROFESSOR 2,000 Units at 11/18/24 1103 cyanocobalamin (VITAMIN B-12) tablet 2,500 mcg 2,500 mcg Oral Daily Corbin Lamb, ASSOCIATE THEATRE PROFESSOR 2,500 mcg at 11/18/24 1027 DAPTOmycin (CUBICIN) 975 mg in sodium chloride (NS) 0.9 % 50 mL IVPB 10 mg/kg (Adjusted) Intravenous Q24H Corbin Lamb ASSOCIATE THEATRE PROFESSOR 0 mL/hr at 11/16/24 1712 975 mg at 11/17/24 1420 donepezil (ARICEPT) tablet 10 mg 10 mg Oral QAM Corbin Lamb ASSOCIATE THEATRE PROFESSOR 10 mg at 11/18/24 1105 [Provider Held] empagliflozin (JARDIANCE) 25 mg 25 mg Oral Daily Corbin Lamb, ASSOCIATE THEATRE PROFESSOR 25 mg at 11/04/24 0756 folic acid (FOLVITE) tablet 1 mg 1 mg Oral Daily Corbin Lamb ASSOCIATE THEATRE PROFESSOR 1 mg at 11/18/24 1028 [Provider Held] glimepiride (AMARYL) tablet 2 mg 2 mg Oral Daily with breakfast Corbin Lamb ASSOCIATE THEATRE PROFESSOR 2 mg at 11/04/24 0757 [Provider Held] heparin (porcine) 5000 unit/mL injection 5,000 Units 5,000 Units Subcutaneous Q8H [facility] Corbin Lamb, ASSOCIATE THEATRE PROFESSOR 5,000 Units at 11/16/24 1714 HYDROmorphone (DILAUDID) tablet 2 mg 2 mg Oral Q3H PRN Corbin Lamb ASSOCIATE THEATRE PROFESSOR 2 mg at 11/18/24 1030 HYDROmorphone (DILAUDID) tablet 4 mg 4 mg Oral Q3H PRN Corbin Lamb, ASSOCIATE THEATRE PROFESSOR 4 mg at 11/16/24 2213 insulin glargine (LANtus/SEMGLEE) 100 units/mL injection 10 Units 10 Units Subcutaneous Daily Corbin Lamb ASSOCIATE THEATRE PROFESSOR 10 Units at 11/18/24 1032 insulin lispro (HumaLOG/ADMELOG) 100 units/mL injection 1-6 Units 1-6 Units Subcutaneous TID with meals Corbin Lamb ASSOCIATE THEATRE PROFESSOR 3 Units at 11/18/24 1232 insulin lispro (HumaLOG/ADMELOG) 100 units/mL injection 3 Units 3 Units Subcutaneous TID with mealsCorbin Lamb ASSOCIATE THEATRE PROFESSOR 3 Units at 11/18/24 1232 ipratropium-albuterol (DUONEB) 0.5-2.5 mg/3 mL nebulizer solution 3 mL 3 mL Nebulization Q2H PRN Corbin Lamb ASSOCIATE THEATRE PROFESSOR 3 mL at 11/07/24 1025 lactulose (ENULOSE) 10 gm/15 mL solution 20 g 20 g Oral Q4H PRN Corbin Lamb ASSOCIATE THEATRE PROFESSOR melatonin tablet 3 mg 3 mg Oral Nightly PRN Corbin Lamb ASSOCIATE THEATRE PROFESSOR 3 mg at 11/16/24 2215 methocarbamol (ROBAXIN) tablet 1,000 mg 1,000 mg Oral 4x Daily Corbin Lamb ASSOCIATE THEATRE PROFESSOR 1,000 mg at 11/18/24 1105 metoPROLOL TARTRATE (LOPRESSOR) tablet 50 mg 50 mg Oral BID Corbin Lamb ASSOCIATE THEATRE PROFESSOR 50 mg at 11/18/24 1031 multivitamin with minerals tablet 1 tablet 1 tablet Oral Daily Corbin Lamb ASSOCIATE THEATRE PROFESSOR 1 tablet at 11/18/24 1028 naloxone (NARCAN) 0.4 mg/mL injection 0.4 mg 0.4 mg Intravenous Q5 Min PRN Corbin Adonis, ASSOCIATE THEATRE PROFESSOR naloxone (NARCAN) 0.4 mg/mL injection 0.4 mg 0.4 mg Intravenous Q5 Min PRN Corbin Adonis, ASSOCIATE THEATRE PROFESSOR nicotine (NICODERM CQ) 21 MG/24HR patch 1 patch 1 patch Transdermal Daily Corbin Adonis, ASSOCIATE THEATRE PROFESSOR 1 patch at 11/18/24 1030 ondansetron (ZOFRAN) injection 4 mg 4 mg Intravenous Q6H PRN Corbin Adonis, ASSOCIATE THEATRE PROFESSOR 4 mg at 11/17/24 1639 PANTOprazole (PROTONIX) EC tablet 40 mg 40 mg Oral Daily Corbin Adonis, ASSOCIATE THEATRE PROFESSOR 40 mg at 11/18/24 1029 polyethylene glycol (miraLAx) packet 17 g 17 g Oral Daily Corbin Adonis, ASSOCIATE THEATRE PROFESSOR 17 g at 11/18/24 1040 [Provider Held] pravastatin (PRAVACHOL) tablet 20 mg 20 mg Oral Daily Corbin Adonis, ASSOCIATE THEATRE PROFESSOR pregabalin (LYRICA) capsule 100 mg 100 mg Oral TID Corbin Adonis, ASSOCIATE THEATRE PROFESSOR 100 mg at 11/18/24 1105 senna-docusate (SENNA-S) 8.6-50 MG tablet 2 tablet 2 tablet Oral BID Corbin Adonis, ASSOCIATE THEATRE PROFESSOR 2 tablet at 11/18/24 1032 thiamine mononitrate (VITAMIN B-1) tablet 200 mg 200 mg Oral Daily Corbin Adonis, ASSOCIATE THEATRE PROFESSOR 200 mg at11/18/24 1031 Physical Exam: Vitals: Blood pressure (!) 115/56, pulse (!) 59, temperature 97.8 ??F (36.6 ??C), temperature source Tympanic, resp. rate 18, height 1.905 m (6' 3 ), weight 99.2 kg (218 lb 11.1 oz), SpO2 94%. General: Not in acute distress, sitting up in bed HEENT: Normocephalic, atraumatic, anicteric sclera, moist mucous membranes Cardiac: Appears well perfused. Left anterior chest incision C/D/I with steri strips Pulmonary: Normal work of breathing, on room air Abdomen: Normal habitus Extremities: s/p right transmetatarsal amputation. S/p Left BKA with ampushield and stump coil winder repair C/D/I Skin: No skin breakdown to exposed skin Neurologic: Alert, oriented, interactive. Face is symmetrical. Speech fluent without dysarthria. MMT: Right Left Right Left Shoulder Abductors 5 2 (antalgic) Hip Flexors 5 4+ Elbow Flexors 5 4(antalgic) Hip Abductors Elbow Extensors 5 4 (antalgic) Knee Extensors 5 Wrist Extensors Knee Flexors Finger Flexors 5 5 Dorsiflexors 5 FDI Plantarflexors 5 Labs: Notable labs are: White Blood Cell Count Date Value Ref Range Status 11/18/2024 12.3 (H) 4.0 - 11.0 Thou/uL Final Hemoglobin Date Value Ref Range Status 11/18/2024 8.1 (L) 13.0 - 17.7 g/dL Final Hematocrit Date Value Ref Range Status 11/18/2024 25.5 (L) 39.0 - 54.0 % Final Platelet Count Date Value Ref Range Status 11/18/2024 349 150 - 450 Thou/uL Final Lab Results Component Value Date NA 129 (L) 11/18/2024 K 3.6 11/18/2024 CL 89 (L) 11/18/2024 CO2 29 11/18/2024 CO2 22 11/07/2024 BUN 45 (H) 11/18/2024 CREAT 1.8 (H) 11/18/2024 GLUC 253 (H) 11/18/2024 GLUC 114 (H) 11/18/2024 GLUC 119 (H) 09/10/2024 Lab Results Component Value Date AST 24 11/17/2024 ALT 19 11/17/2024 ALKPHOS 117 11/17/2024 BILITOT 0.2 11/17/2024 BILIDIR 0.1 11/11/2024 ALBUMIN 2.9 (L) 11/17/2024 PROT 6.6 11/17/2024 Diagnostic Studies: XR Chest 1 view Result Date: 11/18/2024 EXAMINATION: XR CHEST CLINICAL INFORMATION: Post op Micra AV implant. COMPARISON: XR Chest 11/10/2024 TECHNIQUE: Frontal view of the chest was obtained. FINDINGS: Status post AVM planned. Stable cardiac size. The airspace disease in the bilateral upper lobes is mildly improved. No pneumothorax or pl eural effusion. Mildly improving bilateral upper lobe airspace disease Pacemaker Evaluation Result Date: 11/18/2024 Pacemaker evaluation completed on B10E, device interrogation ordered for post- OP. Presenting rhythm: AM-STOKER INSTALLATION MECHANIC @ 69 bpm. Underlying rhythm: No ventricular response greater than 40 bpm. AM-STOKER INSTALLATION MECHANIC @ 84.8%. Battery and device parameters evaluated and within normal limits. Normal pacemaker function. Micra pacemakers do not record events. Sri Pena RN Transesophageal Echo-Anesthesia Result Date: 11/17/2024 Right ventricular systolic function is mildly reduced. A pacer wire is present in the right ventricle. Left ventricular systolic function is moderately decreased with an estimated ejection fraction of 35-39%. There is global hypokinesis without regional variation. There is a patent foramen ovale with predominant left to right shunting indicated by color Doppler. A watchman device is noted. No flow around it. It was noted a small protuberance previously seen in other echos. Difficult to assess if this is a vegetation. There is mild to moderate tricuspid regurgitation. There is moderate functional mitral regurgitation. There is no mitral valve stenosis. Leaflet tethering is noted. POST PROCEDURE CONCLUSIONS Assessment/Recommendations at top of note. Aditi Jones PA-C PM&R Date: 11/18/2024 Time: 1:43 PM Time spent today on chart review in preparation to see patient, review of labs, review of labs and imaging, documentation of care, and counseling/education to patient, including face to face time with patient: 35 minutes * Ena Mtz MD - 11/18/2024 9:03 AM EST Images from the original note were not included. [facility] INFECTIOUS [facility] Consult progress Note Name: Blas Genao Age: 63 y.o. 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 ID was consulted on 11/03-> recommended to start daptomycin/meropenem given prior history of MDRO's and follow cultures. 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 mitral valve endocarditis with small focal echodensity seen posterior to the mitral valve annulus and adjacent to Watchman device -Given the bacteremia, have to assume the watchman's device is infected -Discussed with EP watchman's device cannot be removed transvenously 3. acute hypoxic respiratory failure secondary to volume overload. Clinically improving, weaned to room air 4. Polymicrobial bacteremia: Source was left foot infection/ osteomyelitis; source control achievedwith left BKA on 11/05 -11/06 ,11/07,blood cultures = NGTD -11/04 (2/) bld cx:MRSA -11/02(10/31) blood cultures: MRSA, Enterococcus faecalis, Enterococcus faecium 3. In the presence of MDR/polymicrobial bacteremia, concern for seeding of pacemaker. 4. Intermittent twitching of the hands, MRI of the brain showed no acute intercranial findings or suspicious intracranial lesions 5. H/O atrial fibrillation s/p Watchman device implantation in 2018 6.Right TMA with chronic wounds WBC: 12.3 platelets: 349 BUN/creatinine: 45/1.8 LFTs: Normal CK: 49 Recommendations/Plan: -Continue IV daptomycin 10 mg/kg every 24 hours. CK within normal limits -Add ceftriaxone 2 g IV every 24 hours for synergistic effect for Enterococcus faecalis and Enterococcus faecium and to maximize medical treatment -Will need long-term IV antibiotics -Can have PICC line placement tomorrow -Recommend repeat TATIANNA to evaluate for mitral valve focal echodensity adjacent to watchman's device towards the end of treatment. Discussed with patient at length regarding possible risk of recurrent infection off antibiotics if Watchman device is infected -No good long-term oral antibiotic option to cover all 3 organisms including MRSA, ampicillin sensitive Enterococcus and Enterococcus faecium Discharge antibiotics: -Daptomycin 975 mg IV every 24 hours through December 28, 2024 -Ceftriaxone 2 gram IV every 24 hours through December 28, 2024 -CBC, LFTs, creatinine with EGFR, CK, ESR, CRP once a week while on IV antibiotics Patient would like to follow-up with infectious disease close to home I will try to reach Dr. Saritha Coffey at [facility] tomorrow Current antibiotic/day of therapy: Anti-infectives (From admission, onward) Start Dose/Rate Route Frequency Ordered Stop 11/17/24 1400 ceFAZolin (ANCEF) 2 g in 20 mL SWFI syringe (premix) 2 g over 3 Minutes Intravenous Once 11/17/24 1351 11/18/24 0159 11/03/24 0900 DAPTOmycin (CUBICIN) 975 mg in sodium chloride (NS) 0.9 % 50 mL IVPB 10 mg/kg ?? 97.3 kg (Adjusted) 139 mL/hr over 30 Minutes Intravenous Every 24 hours 11/03/24 0849 Sign Ena Mtz MD, FACP, CWSP [facility] Infectious Diseases Available via [employer] SUBJECTIVE Afebrile, status post AICD extraction CURRENT MEDICATIONS: Reviewed OBJECTIVE PHYSICAL EXAMINATION: Vitals: 11/18/24 0025 11/18/24 0119 11/18/24 0400 11/18/24 0530 BP: (!) 110/53 (!) 97/54 (!) 103/55 BP Location: Right arm Right arm Right arm Patient Position: Lying Lying Lying Pulse: (!) 53 (!) 55 (!) 54 61 Resp: 18 Temp: 97.8 ??F (36.6 ??C) TempSrc: Tympanic SpO2: 94% 94% Weight: 99.2 kg (218 lb 11.1 oz) Height: Intake/Output Summary (Last 24 hours) at 11/18/2024 0903 Last data filed at 11/18/2024 0530 Gross per 24 hour Intake 1210 ml Output 2225 ml Net -1015 ml General appearance- NAD Extremities-left BKA DEVICE TIME OUT Peripheral IV - Single Lumen (Adult) 11/12/24 1210 cephalic vein (lateral side of arm), left 22 gauge;1 in length;3/4 in length (Active) Number of days: 6 Peripheral IV - Single Lumen (Adult) 11/12/24 1744 median vein (underside of arm), right 22 gauge;1in length (Active) Number of days: 6 Of note, some information is being carried forward from prior records for informational purposes only and is being cited so that efficiency, safety and quality of this patient's care is not compromised. This report was generated using [employer] dictation software. Although every attempt has been made by the provider to proofread this document, occasional misspellings and typographical errors may still be present. * Valencia Lau APRN - 11/18/2024 8:48 AM EST Images from the original note were not included. [facility] PROGRESS NOTE Outpatient Retail Shift Manager: [facility] Assessment & Plan Assessment 63 year old male with hypertension, hyperlipidemia, diabetes, CKD stage III, peripheral artery disease, diabetes, foot infection with osteomyelitis, complete heart block s/p dual chamber pacemaker [id number], atrial fibrillation s/p multiple ablations and cardioversions and Watchman device 2017; admitted now with polymicrobial bacteremia including Enterococcus and MRSA. He had a nonhealing left lower extremity ulcer and is now status left BKA. TATIANNA showing small mobile echodensity posterior to MV annulus and adjacent to watchman device- now s/p device extraction and Micra implantation. Acute CHFmrEF LVEf 43% -Significant diuresis since admission, plan to transition to home dose of p.o. Bumex 2 mg daily today -Closely monitor renal function and electrolytes with diuresis, maintain K > 4 and mag > 2 -Strict daily weights and I's and O's -GDMT: jardiance on hold due to procedures and renal dysfunction- would resume when able, beta leeroy as below, plan to add ARB and aldactone pending renal function. Creat 1.8 today Afib, CHB s/p dual chamber pacemaker -S/p extraction of pacemaker 11/17 due to bacteremia and Micra pacemaker insertion with Dr. Pabon -Post op device check shows stable PM parameters and function, postop CXR pending -Continue amiodarone 200 mg daily and Lopressor 50 mg BID Concern for mitral valve endocarditis: -TATIANNA (11/12) showing small mobile echodensity posterior to MV annulus and adjacent to watchman device - hold off on CT surg consult for now - POD day 1 pacemaker extraction - continue IV antibiotics/repeat TATIANNA (timing per ID) - Brain MRI without acute intracranial findings or suspicious intracranial lesions, no evidence of septic emboli - Continue telemetry monitoring Subjective / 24h Events No acute cardiac concerns overnight Expresses frustration with prolonged n.p.o. status yesterday Having some phantom pain, improves with Dilaudid Objective Telemetry Reviewed: Atrial sensed V paced Last Vitals Pulse:61,Resp:18,BP:(!) 103/55,SpO2:94 %,Weight:99.2 kg (218 lb 11.1 oz) Temp Last 24 hrs: Temp Min: 96 ??F (35.6 ??C) Max: 97.8 ??F (36.6 ??C) Intake/Output Summary (Last 24 hours) at 11/18/2024 0848 Last data filed at 11/18/2024 0530 Gross per 24 hour Intake 1210 ml Output 2225 ml Net -1015 ml Physical Exam Gen : comfortable, alert JVP : 9cm HEENT: no icterus or pallor, moist oral mucosa Lungs : good inspiratory effort, no crackles, no wheezing CVS : regular rhythm, normal S1 S2, systolic murmur at the apex Abdo : soft, non-distended, non-tender, no organomegaly appreciated Peripheries : warm, normal pulses, no edema Neuro: oriented x3, no focal abnormalities Skin: dry, no cyanosis, no rash Medications Medications Scheduled Medication Ordered Dose/Rate, Route, Frequency Last Action acetaminophen (TYLENOL) tablet 975 mg 975 mg, PO, Q6H JUDSON Given, 650 mg at 11/18 0305 amiODARONE (PACERONE) tablet 200 mg 200 mg, PO, Daily Given, 200 mg at 11/17 08 amLODIPine (NORVASC) tablet 10 mg 10 mg, PO, Daily Given, 10 mg at 11/17 08 bumetanide (BUMEX) injection 1 mg 1 mg, IV, Q24H Given, 1 mg at 11/17 812 buPROPion (WELLBUTRIN SR) 12 hr tablet 150 mg 150 mg, PO, BID Given, 150 mg at 11/17 2124 calcium citrate (CALCITRATE) tablet 950 mg 950 mg, PO, BID with meals Given, 950 mg at 11/17 812 chlorhexidine gluconate 2 % wipes - urethral catheter CHG application No Dose/Rate, TOP, Daily Ordered cholecalciferol tablet 2,000 Units 2,000 Units, PO, Daily Given, 2,000 Units at 11/17 0815 cyanocobalamin (VITAMIN B-12) tablet 2,500 mcg 2,500 mcg, PO, Daily Given, 2,500 mcg at 11/17 0814 DAPTOmycin (CUBICIN) 975 mg in sodium chloride (NS) 0.9 % 50 mL IVPB 10 mg/kg, IV, Q24H Bolus, 975 mg at 11/17 1420 donepezil (ARICEPT) tablet 10 mg 10 mg, PO, QAM Given, 10 mg at 11/17 0816 [Provider Held] empagliflozin (JARDIANCE) 25 mg On hold since Fri11/04/2024 at 1503 until manually unheld; held by Gayle Rey Reason: Pre-procedure On hold since Fri11/04/2024 at 1503 until manually unheld (Needs Review) Hold reason: Pre-procedure 25 mg, PO, Daily Given, 25 mg at 11/04 0756 folic acid (FOLVITE) tablet 1 mg 1 mg, PO, Daily Given, 1 mg at 11/17 0813 [Provider Held] glimepiride (AMARYL) tablet 2 mg On hold since Fri11/04/2024 at 1503 until manually unheld; held by Gayle Rey Reason: Pre-procedure On hold since Fri11/04/2024 at 1503 until manually unheld (Needs Review) Hold reason: Pre-procedure 2 mg, PO, Daily with breakfast Given, 2 mg at 11/04 0757 [Provider Held] heparin (porcine) 5000 unit/mL injection 5,000 Units On hold since Fri11/16/2024 [id number] until manually unheld; held by Herberth Whitmore Reason: Pre-procedure On hold since Fri11/16/2024 at 2000 until manually unheld (Needs Review) Hold reason: Pre-procedure 5,000 Units, SC, Q8H JUDSON Given, 5,000 Units at 11/16 1714 insulin glargine (LANtus/SEMGLEE) 100 units/mL injection 10 Units 10 Units, SC, Daily Ordered insulin lispro (HumaLOG/ADMELOG) 100 units/mL injection 1-6 Units 1-6 Units, SC, TID with meals Given, 1 Units at 11/17 1855 insulin lispro (HumaLOG/ADMELOG) 100 units/mL injection 3 Units 3 Units, SC, TID with meals Given, 3 Units at 11/17 1212 methocarbamol (ROBAXIN) tablet 1,000 mg 1,000 mg, PO, 4x Daily Given, 1,000 mg at 11/17 2125 metoPROLOL TARTRATE (LOPRESSOR) tablet 50 mg 50 mg, PO, BID Given, 50 mg at 11/17 2123 multivitamin with minerals tablet 1 tablet 1 tablet, PO, Daily Given, 1 tablet at 11/17 815 nicotine (NICODERM CQ) 21 MG/24HR patch 1 patch 1 patch, TD, Daily Patch Applied, 1 patch at 11/17 815 PANTOprazole (PROTONIX) EC tablet 40 mg 40 mg, PO, Daily Given, 40 mg at 11/17 814 polyethylene glycol (miraLAx) packet 17 g 17 g, PO, Daily Given, 17 g at 11/17 1211 [Provider Held] pravastatin (PRAVACHOL) tablet 20 mg On hold since Fri11/03/2024 at 0850 until manually unheld; held by Ena Mtz MDHold Reason: Other - Comment requiredHold Comments: While on IV daptomycin On hold since Fri11/03/2024 at 0850 until manually unheld (Needs Review) Hold reason: Other - Comment required, Hold comment: While on IV daptomycin 20 mg, PO, Daily Ordered pregabalin (LYRICA) capsule 100 mg 100 mg, PO, TID Given, 100 mg at 11/17 2123 senna-docusate (SENNA-S) 8.6-50 MG tablet 2 tablet 2 tablet, PO, BID Given, 2 tablet at 11/17 2124 thiamine mononitrate (VITAMIN B-1) tablet 200 mg 200 mg, PO, Daily Given, 200 mg at 11/17 813 PRN Medication Ordered Dose/Rate, Route, Frequency Last Action acetaminophen (TYLENOL) tablet 975 mg 975 mg, PO, Q6H PRN Ordered benzocaine-menthol (CHLORASEPTIC) 6-10 MG lozenge 1 lozenge 1 lozenge, MT, Q2H PRN Ordered bisacodyl (DULCOLAX) suppository 10 mg 10 mg, RE, Daily PRN Ordered calcium carbonate (TUMS) chewable tablet 1,000 mg 1,000 mg, PO, Q12H PRN Ordered carboxymethylcellulose (REFRESH PLUS) 0.5 % ophthalmic solution 2 drop 2 drop, Each Eye, Q2H PRN Ordered HYDROmorphone (DILAUDID) tablet 2 mg 2 mg, PO, Q3H PRN Given, 2 mg at 11/18 0540 HYDROmorphone (DILAUDID) tablet 4 mg 4 mg, PO, Q3H PRN Given, 4 mg at 11/16 2213 ipratropium-albuterol (DUONEB) 0.5-2.5 mg/3 mL nebulizer solution 3 mL 3 mL, NEBULIZATION, Q2H PRN Given, 3 mL at 11/07 1025 lactulose (ENULOSE) 10 gm/15 mL solution 20 g 20 g, PO, Q4H PRN Ordered melatonin tablet 3 mg 3 mg, PO, Nightly PRN Given, 3 mg at 11/16 2215 naloxone (NARCAN) 0.4 mg/mL injection 0.4 mg 0.4 mg, IV, Q5 Min PRN Ordered naloxone (NARCAN) 0.4 mg/mL injection 0.4 mg 0.4 mg, IV, Q5 Min PRN Ordered ondansetron (ZOFRAN) injection 4 mg 4 mg, IV, Q6H PRN Given, 4 mg at 11/17 1639 Relevant data reviewed Results from last 7 days Lab Units 11/18/24 0753 11/18/24 0715 11/17/24 1700 11/17/24 0720 11/17/24 0500 11/16/24 0737 11/16/24 0723 SODIUM mmol/L -- 129* -- -- 128* -- 130* POTASSIUM mmol/L -- 3.6 -- -- 3.7 -- 3.6 CHLORIDE mmol/L -- 89* -- -- 87* -- 87* CO2 mmol/L -- 29 -- -- 30 -- 32 BUN mg/dL -- 45* -- -- 54* -- 55* CREATININE mg/dL -- 1.8* -- -- 1.8* -- 1.9* CALCIUM mg/dL -- 8.9 -- -- 9.4 -- 9.1 GLUCOSE mg/dL -- 114* -- -- 171* -- 190* GLUCOSE, POC mg/dL 129* -- 177* < > -- < > -- EGFR -- 42* -- -- 42* -- 39* ALBUMIN g/dL -- -- -- -- 2.9* -- -- PROTEIN, TOTAL g/dL -- -- -- -- 6.6 -- -- BILIRUBIN TOTAL mg/dL -- -- -- -- 0.2 -- -- ALK PHOS U/L -- -- -- -- 117 -- -- ALT U/L -- -- -- -- 19 -- -- AST U/L -- -- -- -- 24 -- -- < > = values in this interval not displayed. Lab Results Component Value Date MG 2.0 11/18/2024 Results from last 7 days Lab Units 11/18/24 0715 11/17/24 0500 11/16/24 0723 WHITE BLOOD CELL COUNT Thou/uL 12.3* 11.2* 10.7 HEMOGLOBIN g/dL 8.1* 8.2* 8.1* HEMATOCRIT % 25.5* 25.0* 25.6* PLATELET COUNT Thou/uL 349 373 408 Lab Results Component Value Date HSTNT 26 (H) 11/08/2024 HSTNT 29 (H) 11/07/2024 HSTNT 26 (H) 11/07/2024 Lab Results Component Value Date PROBNP 429 (H) 11/15/2024 Lab Results Component Value Date HGBA1C 8.7 (H) 09/03/2024 Pertinent Cardiac & Imaging Studies Recent Results (from the past 8760 hour(s)) ECG 12 lead Collection Time: 11/07/24 2:58 PM Result Value Status Systolic BP 116 Final Diastolic BP 57 Final Ventricular rate 62 Final Atrial rate 55 Final QRS duration 168 Final Q-T interval 506 Final QTC calculation (Bazett) 513 Final R axis 104 Final T axis -39 Final Narrative Ventricular-paced rhythm Abnormal ECG When compared with ECG of 02-Nov-2024 21:34, Vent. rate has decreased by 8 bpm Confirmed by Elwan, MD, [facility] ([id number]) on 11/07/2024 6:25:53 PM TATIANNA 11/11/24 There is a small mobile echodensity posterior to the mitral valve annulus, adjacent to the watchmandevice (clip 62, 64). This could be a possible vegetation versus benign fibrous strand however in the setting of bacteremia vegetation cannot be excluded. Left ventricular systolic function is mildly decreased with an estimated ejection fraction of 40-44%. Right ventricular systolic function is mildly reduced. There is a patent foramen ovale with predominant left to right shunting indicated by color Doppler. There is mild apical tethering of the mitral valve leaflets.The mitral leaflets are mildly thickened. There is moderate functional mitral regurgitation with a centrally directed jet. There is no mitral valve stenosis. The tricuspid valve annulus is mildly dilated. There is moderate to severe tricuspid regurgitation. Compared to previous study on 11/04/2024, Device, pacemaker wire and valvular structures are better visualized. A small focal echodensity is seen posterior to mitral valve annulus andadjacent to watchman device. Echo 11/04/2024: The left ventricle is mildly dilated. Left ventricular systolic function is mildly decreased. The quantitative EF is 43% by 3D imaging, and 46% by 2D Martinez biplane. The right ventricle is dilated. Right ventricular systolic function is normal. A pacer wire is present in the right ventricle. Right atrial cavity is severely dilated. A pacemaker wire is present in the right atrium. The mitral leaflets are moderately thickened. There is moderate to severe mitral regurgitation. Cannot rule out vegetation on the mitral valve leaflets. There is moderate tricuspid regurgitation. The estimated right ventricular systolic pressure is 44 mmHg. There is mild aortic regurgitation. The pulmonic valve was not well visualized. Compared to previous outside study report from [facility] on 08/05/2024, Mitral and tricuspid regurgitation were not previously reported. Recommend transesophageal echocardiogram if clinically indicated. Brain MRI 11/12/2024 No acute intracranial findings or suspicious intracranial lesions. No septic emboli. All additional appropriate imaging studies within the past 24 hours reviewed - images reviewed and independently interpreted. Sign Valencia Lau APRN [facility] [place] 11/18/2024 8:48 AM * Cristina Rodriguez SHUBHAM - 11/18/2024 8:28 AM EST Electrophysiology Update: Mr. Genao is POD#1 s/p dual pacemaker system extraction for polymicrobial bacteremia including enterococcus and MRSA and implant of a AV Micra PM with Dr. Pabon. Post op device check this AM shows stable PM parameters and function (see note from JOSUE Pena). Telemetry with ASVP overnight. Device programmed to VDD 50-120 bpm. Bilateral groin sites visualized this AM. Both were soft with intact dressings. DSD removed at eachsite and Z stitches also removed in their entirety. There was no bleeding or hematoma at either site post suture removal. I did then place a DSD on each site (gauze and tegaderm). These should remainin place for 24 hours. Bilateral sites can then be maintained open to air or with bandaid replaced each day. His left upper chest incision site island dressing was removed now as well. The steristrips are well approximated; there is no swelling or drainage at the chest wall site. He report discomfort to the left chest wall and pec area. Post op CXR has not been read by radiology. Image shows that Micra appears in stable position. Post op instructions reinforced now. Instructions will populate into AVS. F/U with EP for wound anddevice evaluation on 12/07/24 in our office. EP will sign off. Future Appointments Date Time Provider Department Center 12/07/2024 1:30 PM ROOM, ICD/PACER/LOOP [facility]mi Current Facility-Administered Medications: acetaminophen (TYLENOL) tablet 975 mg, 975 mg, Oral, Q6H JUDSON, Corbin Adonis, ASSOCIATE THEATRE PROFESSOR, 650 mg at 11/18/24 0305 acetaminophen (TYLENOL) tablet 975 mg, 975 mg, Oral, Q6H PRN, Corbin Adonis, ASSOCIATE THEATRE PROFESSOR amiODARONE (PACERONE) tablet 200 mg, 200 mg, Oral, Daily, Corbin Adonis, ASSOCIATE THEATRE PROFESSOR, 200 mg at 11/17/24 0813 amLODIPine (NORVASC) tablet 10 mg, 10 mg, Oral, Daily, Corbin Adonis, ASSOCIATE THEATRE PROFESSOR, 10 mg at 11/17/24 0816 benzocaine-menthol (CHLORASEPTIC) 6-10 MG lozenge 1 lozenge, 1 lozenge, Mouth/Throat, Q2H PRN, Gretel Hinds APRN bisacodyl (DULCOLAX) suppository 10 mg, 10 mg, Rectal, Daily PRN, Corbin Lamb, ASSOCIATE THEATRE PROFESSOR bumetanide (BUMEX) injection 1 mg, 1 mg, Intravenous, Q24H, Corbin Lamb, ASSOCIATE THEATRE PROFESSOR, 1 mg at 11/17/24 0813 buPROPion (WELLBUTRIN SR) 12 hr tablet 150 mg, 150 mg, Oral, BID, Corbin Adonis, ASSOCIATE THEATRE PROFESSOR, 150 mg at11/17/24 2125 calcium carbonate (TUMS) chewable tablet 1,000 mg, 1,000 mg, Oral, Q12H PRN, Corbin Lamb, ASSOCIATE THEATRE PROFESSOR calcium citrate (CALCITRATE) tablet 950 mg, 950 mg, Oral, BID with meals, Corbin Lamb, ASSOCIATE THEATRE PROFESSOR, 950 mg at 11/17/24 0813 carboxymethylcellulose (REFRESH PLUS) 0.5 % ophthalmic solution 2 drop, 2 drop, Each Eye, Q2H PRN, Gretel Hinds, ASSOCIATE THEATRE PROFESSOR chlorhexidine gluconate 2 % wipes - urethral catheter CHG application, , Topical, Daily, Corbin Lamb ASSOCIATE THEATRE PROFESSOR cholecalciferol tablet 2,000 Units, 2,000 Units, Oral, Daily, Corbin Adonis, ASSOCIATE THEATRE PROFESSOR, 2,000 Units at 11/17/24 0815 cyanocobalamin (VITAMIN B-12) tablet 2,500 mcg, 2,500 mcg, Oral, Daily, Corbin Adonis, ASSOCIATE THEATRE PROFESSOR, 2,500 mcg at 11/17/24 0814 DAPTOmycin (CUBICIN) 975 mg in sodium chloride (NS) 0.9 % 50 mL IVPB, 10 mg/kg (Adjusted), Intravenous, Q24H, Corbin Lamb ASSOCIATE THEATRE PROFESSOR, Last Rate: 0 mL/hr at 11/16/24 1712, 975 mg at 11/17/24 1420 donepezil (ARICEPT) tablet 10 mg, 10 mg, Oral, QAM, Corbin Lamb, ASSOCIATE THEATRE PROFESSOR, 10 mg at 11/17/24 0816 [Provider Held] empagliflozin (JARDIANCE) 25 mg, 25 mg, Oral, Daily, Corbin Adonis, ASSOCIATE THEATRE PROFESSOR, 25 mg at 11/04/24 0756 folic acid (FOLVITE) tablet 1 mg, 1 mg, Oral, Daily, Corbin Adonis, ASSOCIATE THEATRE PROFESSOR, 1 mg at 11/17/24 0813 [Provider Held] glimepiride (AMARYL) tablet 2 mg, 2 mg, Oral, Daily with breakfast, Corbindenise Lamb, ASSOCIATE THEATRE PROFESSOR, 2 mg at 11/04/24 0757 [Provider Held] heparin (porcine) 5000 unit/mL injection 5,000 Units, 5,000 Units, Subcutaneous, Q8H JUDSON, Corbindenise Lamb, ASSOCIATE THEATRE PROFESSOR, 5,000 Units at 11/16/24 1714 HYDROmorphone (DILAUDID) tablet 2 mg, 2 mg, Oral, Q3H PRN, Corbindenise Lamb, ASSOCIATE THEATRE PROFESSOR, 2 mg at 540 HYDROmorphone (DILAUDID) tablet 4 mg, 4 mg, Oral, Q3H PRN, Corbin Adonis, ASSOCIATE THEATRE PROFESSOR, 4 mg at 213 insulin glargine (LANtus/SEMGLEE) 100 units/mL injection 10 Units, 10 Units, Subcutaneous, Daily, Corbin Lamb ASSOCIATE THEATRE PROFESSOR insulin lispro (HumaLOG/ADMELOG) 100 units/mL injection 1-6 Units, 1-6 Units, Subcutaneous, TID with meals, Corbin Lamb, ASSOCIATE THEATRE PROFESSOR, 1 Units at 11/17/24 1856 insulin lispro (HumaLOG/ADMELOG) 100 units/mL injection 3 Units, 3 Units, Subcutaneous, TID with meals, Corbin Lamb ASSOCIATE THEATRE PROFESSOR, 3 Units at 11/17/24 1213 ipratropium-albuterol (DUONEB) 0.5-2.5 mg/3 mL nebulizer solution 3 mL, 3 mL, Nebulization, Q2H PRN, Corbin Lamb ASSOCIATE THEATRE PROFESSOR, 3 mL at 11/07/24 1025 lactulose (ENULOSE) 10 gm/15 mL solution 20 g, 20 g, Oral, Q4H PRN, Corbin Lamb ASSOCIATE THEATRE PROFESSOR melatonin tablet 3 mg, 3 mg, Oral, Nightly PRN, Corbin Adonis, ASSOCIATE THEATRE PROFESSOR, 3 mg at 11/16/242214 methocarbamol (ROBAXIN) tablet 1,000 mg, 1,000 mg, Oral, 4x Daily, Corbin Adonis, ASSOCIATE THEATRE PROFESSOR, 1,000 mgat 11/17/242125 metoPROLOL TARTRATE (LOPRESSOR) tablet 50 mg, 50 mg, Oral, BID, Corbin Adonis, ASSOCIATE THEATRE PROFESSOR, 50 mg at 11/17/242123 multivitamin with minerals tablet 1 tablet, 1 tablet, Oral, Daily, Corbin Adonis, ASSOCIATE THEATRE PROFESSOR, 1 tabletat 11/17/24 0816 naloxone (NARCAN) 0.4 mg/mL injection 0.4 mg, 0.4 mg, Intravenous, Q5 Min PRN, Corbin Adonis, ASSOCIATE THEATRE PROFESSOR naloxone (NARCAN) 0.4 mg/mL injection 0.4 mg, 0.4 mg, Intravenous, Q5 Min PRN, Corbin Adonis, ASSOCIATE THEATRE PROFESSOR nicotine (NICODERM CQ) 21 MG/24HR patch 1 patch, 1 patch, Transdermal, Daily, Corbin Adonis, ASSOCIATE THEATRE PROFESSOR, 1 patch at 11/17/24 0816 ondansetron (ZOFRAN) injection 4 mg, 4 mg, Intravenous, Q6H PRN, Corbin Adonis, ASSOCIATE THEATRE PROFESSOR, 4 mg at 11/17/24 1639 PANTOprazole (PROTONIX) EC tablet 40 mg, 40 mg, Oral, Daily, Corbin Adonis, ASSOCIATE THEATRE PROFESSOR, 40 mg at 11/17/24 0815 polyethylene glycol (miraLAx) packet 17 g, 17 g, Oral, Daily, Corbin Adonis, ASSOCIATE THEATRE PROFESSOR, 17 g at 11/17/24 1212 [Provider Held] pravastatin (PRAVACHOL) tablet 20 mg, 20 mg, Oral, Daily, Corbin Adonis, ASSOCIATE THEATRE PROFESSOR pregabalin (LYRICA) capsule 100 mg, 100 mg, Oral, TID, Corbin Adonis, ASSOCIATE THEATRE PROFESSOR, 100 mg at 11/17/242123 senna-docusate (SENNA-S) 8.6-50 MG tablet 2 tablet, 2 tablet, Oral, BID, Corbin Adonis, ASSOCIATE THEATRE PROFESSOR, 2 tablet at 11/17/242124 thiamine mononitrate (VITAMIN B-1) tablet 200 mg, 200 mg, Oral, Daily, Corbin Lamb, ASSOCIATE THEATRE PROFESSOR, 200 mg at 11/17/24 0814 Vitals: 11/18/24 0025 11/18/24 0119 11/18/24 0400 11/18/24 0530 BP: (!) 110/53 (!) 97/54 (!) 103/55 BP Location: Right arm Right arm Right arm Patient Position: Lying Lying Lying Pulse: (!) 53 (!) 55 (!) 54 61 Resp: 18 Temp: 97.8 ??F (36.6 ??C) TempSrc: Tympanic SpO2: 94% 94% Weight: 99.2 kg (218 lb 11.1 oz) Height: Cristina Rodriguez, ASSOCIATE THEATRE PROFESSOR 11/18/24 9:18 AM Addendum: From an EP perspective, he can re-start his Eliquis today. Cristina Michael, SHUBHAM 11/18/24 9:19 AM * Sri Pena RN - 11/18/2024 8:25 AM EST Attached media from the original note were not included. Pacemaker evaluation completed on B10E, device interrogation ordered for post- OP. Presenting rhythm: AM-STOKER INSTALLATION MECHANIC @ 69 bpm. Underlying rhythm: No ventricular response greater than 40 bpm. AM-STOKER INSTALLATION MECHANIC @ 84.8%. Battery and device parameters evaluated and within normal limits. Normal pacemaker function. Micra pacemakers do not record events. Sri Pnea RN * Katy Rodgers, OT - 11/18/2024 8:07 AM EST Occupational Therapy Progress Note Assessment & Progress Summary: Blas was seen for OT follow up session today with reports of some discomfort in L chest and arm s/p recent pacer exchange yesterday. Pt now with Micra, leadless pacer in place. He was motivated to participate in session however was limited in ability to use L UE for pushing and pulling during bed mobility 2/2 pain. As a result pt didn't feel able to attempt standing during session however transitioned to EOB using R UE/LE with supervision and actively participated in bathing, UB dressing, grooming and oral care from EOB with increased pain reported in L arm/chest only when reaching across body to his R side. Compensatory dressing techniques were reviewed to facilitate independence while minimizing pain while strategies to minimize spillage during self feeding were also reviewed as pt continues to report intermittent tremors in B hands. Blas was pleasant and cooperative during session however remains well below baseline functional level 2/2 deficits with strength, pain, balance and activity tolerance. He is an excellent rehab candidate and would benefit from a coordinated multidisciplinary rehab approach between therapies, physician and nursing at next level of care. Patient is highly motivated to restore prior level of function, has a strong support system, and has potential to return home and reintegrate back into the community with intensive therapy at least 3 hours a day. If transitioning to home at this time, patient will require Ax1-2 for all transfers and standing, LB ADLs, toileting and IADL performance. He would also require a w/c, RW and commode in addition to home OT services. Progress Towards Goals: progress toward functional goals is gradual Outcome Measures: The Activity Measure for Post-Acute Care (AM-PAC) Daily Activity Inpatient Short Form (6-clicks) zakiya standardized measure used to quantify deficits in self-care. The total score of the measure ranges from 6-24. A higher score indicates a higher level of independence with self-care tasks. Current [facility] Daily Activity Score: 16 Precautions/Restrictions: fall, aspiration, pacemaker, isolation: contact, weight bearing (NWBing to L residual limb with coil winder repair and nutmeggar in place, skin) Rehab Plan of Care Pt would benefit from continued OT services 2-3x/wk while in house to maximize functional independence, safety and participation in meaningful occupations. OT intervention to focus on maximizing independence with commode transfers, bathing, LB dressing and toileting tasks with emphasis on ECTs, activity pacing and good use of PLBing. Recommend Ax2 transfers with RW to the commode and recliner chair for meals as able and pain allows. Encourage participation with grooming and UB ADLs from EOB with staff assist. -OT Recommendations for Staff: Ax2 with RW to the commode and recliner chair as pain allows. Encourage OOB for meals as able and active participation with ADLs from EOB or recliner chair. -OT Frequency during Hospitalization: 2-3 times/wk -Progressive Mobility Level: Level 2 -Plan of Care Reviewed With: care plan/treatment goals reviewed, patient, participants voiced agreement with care plan Education: OT role, POC, and recommendations Treatment Interventions/Objective Data Interventions to Optimize ADL Performance Self Feeding: Pt was finishing breakfast at start of session reporting that he has had multiple recent spills 2/2 UE tremors. No tremors were noted or present during brief observation of self feedinghowever pt reports they are inconsistent at time. Reviewed technique of using B UE support on cups and mugs to minimize risk of spillage however pt reports he has attempted and doesn't feel is has muc h of an affect. Grooming: Pt was able to wash face and hands while sitting EOB with set up assist. Bathing: Pt was able to wash upper body, R leg to ankle and eleanor-area while sitting EOB and shifting weight side to side with CG assist after set up. Increased pain reported in area of L chest and arm with reach across body to wash R side. Dressing: Pt was educated on benefits of donning L UE into clothing first and removing last in minimizing discomfort with pt able to complete from EOB with CG assist. Transfers and Functional Mobility: Supervision for supine <> sit EOB with pt using R UE and LE to assist with transition. While supine he was able to reposition up in bed, again using R UE and LE to facilitate with only supervision. Pt declined to attempt standing 2/2 pain in L arm and chest with pushing/pulling however was able to scoot up along EOB using R arm and leg with min assist. Therapeutic Exercise: Encouraged pt to use L UE for functional task performance as tolerated to minimize stiffness and maintain optimal strength. Neuromuscular Re-education: Pt was able to tolerate dynamic sitting balance EOB without assistance throughout ADL performance. Endurance/Activity Tolerance: good for session completed on RA without reports of SOB or dizziness. Subjective It hurts to much to use it to push myself up. Flowsheet Data 11/18/24 0807 OT Time and Intention OT Follow-Up Visit follow up treatment Mode of Treatment individual therapy;occupational therapy Patient Effort good Symptoms Noted During/After Treatment increased pain General Information Patient Profile Reviewed yes Patient/Family/Caregiver Comments/Observations It hurts to much to use it to push myself up. General Observations of Patient Pt was received in bed, in NAD and agreeable to OT session. Pertinent History of Current Functional Problem Pt is 1 day s/p extraction of his pacemaker and Micra leadless pacemaker insertion. Existing Precautions/Restrictions fall;aspiration;pacemaker;isolation: contact;weight bearing (NWBing to L residual limb with coil winder repair and nutmeggar in place, skin) Pain Assessment Pretreatment Pain Rating 6/10 Posttreatment Pain Rating 7/10 Pre/Posttreatment Pain Comment reported in L anterior chest muscles near new pacer incision Mobility Extremity Weight-bearing Status left lower extremity Left Lower Extremity (Weight-bearing Status) non weight-bearing (NWB) Coping Observed Emotional State calm;cooperative;pleasant Verbalized Emotional State acceptance Safety Safety WDL WDL Safety Factors call light in reach;bed in low position All Alarms alarm(s) activated and audible Enhanced Safety Measures bed alarm set Progressive Mobility Progressive Mobility Level Achieved Edge of Bed [facility] Daily Activity Putting on and taking off Lower Body Clothing? 3 Bathing (including washing/rinsing/drying)? 2 Toileting (includes using toilet, bedpan, or urinal)? 2 Putting on and taking off upper body clothing? 3 Taking care of personal grooming such as brushing teeth? 3 Eating meals? 3 [facility] Daily Activity Score 16 Therapy Assessment/Plan (OT) Criteria for Skilled Therapeutic Interventions Met (OT) yes Therapy Frequency (OT) 2-3 times/wk Predicted Duration of Therapy Intervention (OT) LOS Progress Summary (OT) Progress Toward Functional Goals (OT) progress toward functional goals is gradual Daily Progress Summary (OT) goals revised Barriers to Overall Progress (OT) Pt limited today by pain in L chest and arm s/p pacer exchange. Therapy Plan Review/Discharge Plan (OT) Therapy Plan Review (OT) care plan/treatment goals reviewed;patient;participants voiced agreement with care plan OT Recommendations for Staff Ax2 with RW to the commode and recliner chair as pain allows. Encourage OOB for meals as able and active participation with ADLs from EOB or recliner chair. Transfer Goal 1 (OT) Progress/Outcome (Transfer Goal 1, OT) goal ongoing Bathing Goal 1 (OT) Moffat Level/Cues Needed (Bathing Goal 1, OT) minimum assist (75% or more patient effort) Progress/Outcomes (Bathing Goal 1, OT) goal revised this date Activity/Device (Bathing Goal 1, OT) bathing skills, all Time Frame (Bathing Goal 1, OT) 1 day Dressing Goal 1 (OT) Activity/Device (Dressing Goal 1, OT) lower body dressing Progress/Outcome (Dressing Goal 1, OT) goal revised this date Time Frame (Dressing Goal 1, OT) 1 week Moffat/Cues Needed (Dressing Goal 1, OT) minimum assist (75% or more patient effort) Toileting Goal 1 (OT) Activity/Device (Toileting Goal 1, OT) toileting skills, all Progress/Outcome (Toileting Goal 1, OT) goal revised this date Time Frame (Toileting Goal 1, OT) 1 week Moffat Level/Cues Needed (Toileting Goal 1, OT) minimum assist (75% or more patient effort) Sign: Katy Rodgers OT * Valencia Lau APRN - 11/17/2024 10:51 AM EST Images from the original note were not included. [facility] PROGRESS NOTE Outpatient Retail Shift Manager: [facility] Assessment & Plan Assessment 63 year old male with hypertension, hyperlipidemia, diabetes, CKD stage III, peripheral artery disease, diabetes, foot infection with osteomyelitis, complete heart block s/p dual chamber pacemaker [id number], atrial fibrillation s/p multiple ablations and cardioversions and Watchman device 2018; admitted now with polymicrobial bacteremia including Enterococcus and MRSA. He had a nonhealing left lower extremity ulcer and is now status left BKA. TATIANNA showing small mobile echodensity posterior to MV annulus and adjacent to watchman device- tentative plan for device extraction and Micra implantation next week TBD. Acute CHFmrEF LVEf 43% -Significant diuresis since admission, transitioned to IV Bumex 1 mg daily today -BNP downtrending [phone] -Closely monitor renal function and electrolytes with diuresis, maintain K greater than 4 and mag greater than 2 -Strict daily weights and I's and O's -GDMT: jardiance on hold due to procedures and renal dysfunction- would resume when able, beta leeroy as below, plan to add ARB and aldactone pending renal function Afib, CHB s/p dual chamber pacemaker -NPO today for extraction of his pacemaker due to bacteremia and Micra pacemaker insertion -Pacer interrogation 11/11/24: Presenting rhythm: AP / STOKER INSTALLATION MECHANIC @ 60 bpm. Underlying rhythm: SB @ 58. Atrial pacing 71.2%, ventricular pacing 89%. Battery and lead parameters evaluated and within normal limits. Normal pacemaker function. -Continue amiodarone 200 mg daily, Lopressor 50 mg BID for rate control Concern for mitral valve endocarditis: -TATIANNA (11/12) showing small mobile echodensity posterior to MV annulus and adjacent to watchman device - hold off on CT surg consult for now - Pacemaker extraction scheduled for today - continue IV antibiotics/repeat TATIANNA per ID - Brain MRI yesterday without acute intracranial findings or suspicious intracranial lesions, no evidence of septic emboli - Continue telemetry monitoring Subjective / 24h Events No acute cardiac concerns overnight No chest pain, dizziness, orthopnea N.p.o. for pacemaker extraction today Objective Telemetry Reviewed: Sinus rhythm Last Vitals Pulse:61,Resp:18,BP:(!) 110/57 (rn notified),SpO2:93 %,Weight:120 kg (264 lb 8 oz) Temp Last 24 hrs: Temp Min: 96.4 ??F (35.8 ??C) Max: 96.9 ??F (36.1 ??C) Intake/Output Summary (Last 24 hours) at 11/17/2024 1051 Last data filed at 11/17/2024 0813 Gross per 24 hour Intake 20 ml Output 2970 ml Net -2950 ml Physical Exam Gen : comfortable, alert JVP : 9cm HEENT: no icterus or pallor, moist oral mucosa Lungs : good inspiratory effort, no crackles, no wheezing CVS : regular rhythm, normal S1 S2, systolic murmur at the apex Abdo : soft, non-distended, non-tender, no organomegaly appreciated Peripheries : warm, normal pulses, no edema Neuro: oriented x3, no focal abnormalities Skin: dry, no cyanosis, no rash Medications Medications Scheduled Medication Ordered Dose/Rate, Route, Frequency Last Action acetaminophen (TYLENOL) tablet 975 mg 975 mg, PO, Q6H JUDSON Given, 975 mg at 11/17 0816 amiODARONE (PACERONE) tablet 200 mg 200 mg, PO, Daily Given, 200 mg at 11/17 812 amLODIPine (NORVASC) tablet 10 mg 10 mg, PO, Daily Given, 10 mg at 11/17 815 bumetanide (BUMEX) injection 1 mg 1 mg, IV, Q24H Given, 1 mg at 11/17 812 buPROPion (WELLBUTRIN SR) 12 hr tablet 150 mg 150 mg, PO, BID Given, 150 mg at 11/17 815 calcium citrate (CALCITRATE) tablet 950 mg 950 mg, PO, BID with meals Given, 950 mg at 11/17 812 cholecalciferol tablet 2,000 Units 2,000 Units, PO, Daily Given, 2,000 Units at 11/17 814 cyanocobalamin (VITAMIN B-12) tablet 2,500 mcg 2,500 mcg, PO, Daily Given, 2,500 mcg at 11/17 813 DAPTOmycin (CUBICIN) 975 mg in sodium chloride (NS) 0.9 % 50 mL IVPB 10 mg/kg, IV, Q24H Stopped, 11/16 1711 donepezil (ARICEPT) tablet 10 mg 10 mg, PO, QAM Given, 10 mg at 11/17 815 [Provider Held] empagliflozin (JARDIANCE) 25 mg On hold since Fri11/04/2024 at 1503 until manually unheld; held by Juaquin Kern MDHold Reason: Pre-procedure On hold since Fri11/04/2024 at 1503 until manually unheld (Needs Review) Hold reason: Pre-procedure 25 mg, PO, Daily Given, 25 mg at 11/04 755 folic acid (FOLVITE) tablet 1 mg 1 mg, PO, Daily Given, 1 mg at 11/17 08 [Provider Held] glimepiride (AMARYL) tablet 2 mg On hold since Fri11/04/2024 at 1503 until manually unheld; held by Gayle Rey Reason: Pre-procedure On hold since Fri11/04/2024 at 1503 until manually unheld (Needs Review) Hold reason: Pre-procedure 2 mg, PO, Daily with breakfast Given, 2 mg at 11/04 0757 [Provider Held] heparin (porcine) 5000 unit/mL injection 5,000 Units On hold since yesterday at 1999 until manually unheld; held by Herberth Whitmore Reason: Pre-procedure On hold since yesterday at 1999 until manually unheld (Needs Review) Hold reason: Pre-procedure 5,000 Units, SC, Q8H JUDSON Given, 5,000 Units at 11/16 1713 insulin glargine (LANtus/SEMGLEE) 100 units/mL injection 10 Units 10 Units, SC, Daily Ordered insulin glargine (LANtus/SEMGLEE) 100 units/mL injection 3 Units 3 Units, SC, Once Ordered insulin lispro (HumaLOG/ADMELOG) 100 units/mL injection 1-6 Units 1-6 Units, SC, TID with meals Given, 2 Units at 11/17 813 insulin lispro (HumaLOG/ADMELOG) 100 units/mL injection 3 Units 3 Units, SC, TID with meals Given, 3 Units at 11/17 813 methocarbamol (ROBAXIN) tablet 1,000 mg 1,000 mg, PO, 4x Daily Given, 1,000 mg at 11/17 813 metoPROLOL TARTRATE (LOPRESSOR) tablet 50 mg 50 mg, PO, BID Given, 50 mg at 11/17 815 multivitamin with minerals tablet 1 tablet 1 tablet, PO, Daily Given, 1 tablet at 11/17 815 nicotine (NICODERM CQ) 21 MG/24HR patch 1 patch 1 patch, TD, Daily Patch Applied, 1 patch at 11/17 815 PANTOprazole (PROTONIX) EC tablet 40 mg 40 mg, PO, Daily Given, 40 mg at 11/17 814 polyethylene glycol (miraLAx) packet 17 g 17 g, PO, Daily Ordered [Provider Held] pravastatin (PRAVACHOL) tablet 20 mg On hold since Fri11/03/2024 at 0850 until manually unheld; held by Gayle Rose Reason: Other - Comment requiredHold Comments: While on IV daptomycin On hold since Fri11/03/2024 at 0850 until manually unheld (Needs Review) Hold reason: Other - Comment required, Hold comment: While on IV daptomycin 20 mg, PO, Daily Ordered pregabalin (LYRICA) capsule 100 mg 100 mg, PO, TID Ordered senna-docusate (SENNA-S) 8.6-50 MG tablet 2 tablet 2 tablet, PO, BID Given, 2 tablet at 11/17 812 thiamine mononitrate (VITAMIN B-1) tablet 200 mg 200 mg, PO, Daily Given, 200 mg at 11/17 0714 PRN Medication Ordered Dose/Rate, Route, Frequency Last Action bisacodyl (DULCOLAX) suppository 10 mg 10 mg, RE, Daily PRN Ordered calcium carbonate (TUMS) chewable tablet 1,000 mg 1,000 mg, PO, Q12H PRN Ordered HYDROmorphone (DILAUDID) tablet 2 mg 2 mg, PO, Q3H PRN Given, 2 mg at 11/11 1009 HYDROmorphone (DILAUDID) tablet 4 mg 4 mg, PO, Q3H PRN Given, 4 mg at 11/16 2212 ipratropium-albuterol (DUONEB) 0.5-2.5 mg/3 mL nebulizer solution 3 mL 3 mL, NEBULIZATION, Q2H PRN Given, 3 mL at 11/07 1025 lactulose (ENULOSE) 10 gm/15 mL solution 20 g 20 g, PO, Q4H PRN Ordered melatonin tablet 3 mg 3 mg, PO, Nightly PRN Given, 3 mg at 11/16 2214 naloxone (NARCAN) 0.4 mg/mL injection 0.4 mg 0.4 mg, IV, Q5 Min PRN Ordered ondansetron (ZOFRAN) injection 4 mg 4 mg, IV, Q6H PRN Ordered Relevant data reviewed Results from last 7 days Lab Units 11/17/24 0720 11/17/24 0500 11/16/24200811/16/24 0737 11/16/24 0723 11/15/24 1109 11/15/24 0808 11/11/24 0235 11/11/24 0200 SODIUM mmol/L -- 128* -- -- 130* -- 131* < > 137 POTASSIUM mmol/L -- 3.7 -- -- 3.6 -- 3.9 < > 3.8 CHLORIDE mmol/L -- 87* -- -- 87* -- 85* < > 99 CO2 mmol/L -- 30 -- -- 32 -- 34* < > 27 BUN mg/dL -- 54* -- -- 55* -- 59* < > 56* CREATININE mg/dL -- 1.8* -- -- 1.9* -- 1.8* < > 2.0* CALCIUM mg/dL -- 9.4 -- -- 9.1 -- 9.4 < > 8.7 GLUCOSE mg/dL -- 171* -- -- 190* -- 218* < > 151* GLUCOSE, POC mg/dL 206* -- 296* < > -- < > -- < > -- EGFR -- 42* -- -- 39* -- 42* < > 37* ALBUMIN g/dL -- 2.9* -- -- -- -- -- -- 2.6* PROTEIN, TOTAL g/dL -- 6.6 -- -- -- -- -- -- 6.4 BILIRUBIN TOTAL mg/dL -- 0.2 -- -- -- -- -- -- 0.2 ALK PHOS U/L -- 117 -- -- -- -- -- -- 207* ALT U/L -- 19 -- -- -- -- -- -- 14 AST U/L -- 24 -- -- -- -- -- -- 24 < > = values in this interval not displayed. Lab Results Component Value Date MG 2.0 11/17/2024 Results from last 7 days Lab Units 11/17/24 0500 11/16/24 0723 11/15/24 0808 WHITE BLOOD CELL COUNT Thou/uL 11.2* 10.7 11.8* HEMOGLOBIN g/dL 8.2* 8.1* 8.9* HEMATOCRIT % 25.0* 25.6* 28.9* PLATELET COUNT Thou/uL 373 408 485* Lab Results Component Value Date HSTNT 26 (H) 11/08/2024 HSTNT 29 (H) 11/07/2024 HSTNT 26 (H) 11/07/2024 Lab Results Component Value Date PROBNP 429 (H) 11/15/2024 Lab Results Component Value Date HGBA1C 8.7 (H) 09/03/2024 Pertinent Cardiac & Imaging Studies Recent Results (from the past 8760 hour(s)) ECG 12 lead Collection Time: 11/07/24 2:58 PM Result Value Status Systolic BP 116 Final Diastolic BP 57 Final Ventricular rate 62 Final Atrial rate 55 Final QRS duration 168 Final Q-T interval 506 Final QTC calculation (Bazett) 513 Final R axis 104 Final T axis -39 Final Narrative Ventricular-paced rhythm Abnormal ECG When compared with ECG of 02-Nov-2024 21:34, Vent. rate has decreased by 8 bpm Confirmed by MD Claude, [facility] ([id number]) on 11/07/2024 6:25:53 PM TATIANNA 11/11/24 There is a small mobile echodensity posterior to the mitral valve annulus, adjacent to the watchmandevice (clip 62, 64). This could be a possible vegetation versus benign fibrous strand however in the setting of bacteremia vegetation cannot be excluded. Left ventricular systolic function is mildly decreased with an estimated ejection fraction of 40-44%. Right ventricular systolic function is mildly reduced. There is a patent foramen ovale with predominant left to right shunting indicated by color Doppler. There is mild apical tethering of the mitral valve leaflets.The mitral leaflets are mildly thickened. There is moderate functional mitral regurgitation with a centrally directed jet. There is no mitral valve stenosis. The tricuspid valve annulus is mildly dilated. There is moderate to severe tricuspid regurgitation. Compared to previous study on 11/04/2024, Device, pacemaker wire and valvular structures are better visualized. A small focal echodensity is seen posterior to mitral valve annulus andadjacent to watchman device. Echo 11/04/2024: The left ventricle is mildly dilated. Left ventricular systolic function is mildly decreased. The quantitative EF is 43% by 3D imaging, and 46% by 2D Martinez biplane. The right ventricle is dilated. Right ventricular systolic function is normal. A pacer wire is present in the right ventricle. Right atrial cavity is severely dilated. A pacemaker wire is present in the right atrium. The mitral leaflets are moderately thickened. There is moderate to severe mitral regurgitation. Cannot rule out vegetation on the mitral valve leaflets. There is moderate tricuspid regurgitation. The estimated right ventricular systolic pressure is 44 mmHg. There is mild aortic regurgitation. The pulmonic valve was not well visualized. Compared to previous outside study report from [facility] on 08/05/2024, Mitral and tricuspid regurgitation were not previously reported. Recommend transesophageal echocardiogram if clinically indicated. Brain MRI 11/12/2024 No acute intracranial findings or suspicious intracranial lesions. No septic emboli. All additional appropriate imaging studies within the past 24 hours reviewed - images reviewed and independently interpreted. Sign Valencia Lau APRN [facility] [place] 11/17/2024 10:51 AM Associated attestation - Devon Lazo MD - 11/17/2024 1:04 PM EST Please refer to the note of Coty Gonzalez APRN for full details. Patient was seen and examined dependently and the case was discussed with her. He has noted significant improvement in his breathing he denies any shortness of breath. He is off oxygen. He was noted to have trivial jugular venous distention but his lungs were clear to auscultation and has had no edema. He can be switched to oral diuretics. He can start Bumex at the dose of 1 mg p.o. daily. He is scheduled to undergo extraction of his pacemaker and Micra pacemaker insertion. * Fredi Powers MD - 11/17/2024 10:06 AM EST HOSPITAL MEDICINE PROGRESS NOTE Assessment & Plan Principal Problem: Acute osteomyelitis of left calcaneus (HCC) (POA: Yes) Active Problems: HTN (hypertension) (POA: Yes) A-fib (HCC) (POA: Yes) PAD (peripheral artery disease) (POA: Yes) MERVIN on CPAP (POA: Yes) Diabetes (HCC) (POA: Yes) Stage 3a chronic kidney disease (CKD) (HCC) (POA: Yes) Hyperlipidemia (POA: Yes) Smoker (POA: Yes) Chronic diastolic congestive heart failure (HCC) (POA: Yes) Osteomyelitis (HCC) (POA: Yes) CKD (chronic kidney disease) (Chronic) (POA: Yes) Bacteremia (POA: Unknown) Presence of permanent cardiac pacemaker (POA: Unknown) Mitral valve vegetation (POA: Unknown) Mitral valve regurgitation (POA: Unknown) Resolved Problems: Brief Summary Blas Genao is a 63 year old male with past medical history of atrial flutter, AV Block, CHFpEF, hypertension, HLD, CKD, PAD and DMII who presented to the hospital for left BKA however his post op coarse was complicated with bacteremia, endocarditis and CHF exacerbation. Assessment and Plan 1) MRSA and enterococcal bacteremia Endocarditis PPM lead vegetation Left heel osteomyelitis s/p L BKA Patient was originally admitted to the hospital on 11/05 for BKA given chronic left calcaneal polymicrobial osteomyelitis. Unfortunately his hospital course got complicated with MRSA, Enterococcus faecium/faecalis bacteremia. He subsequently underwent a TATIANNA that showed a mobile echodensity posterior to mitral valve annulus adjacent to Watchman device. He has received various antibiotics including ceftaroline, meropenem, aztreonam and is now maintained on daptomycin monotherapy. Remains afebrile and white count is high normal - Appreciate evaluation by ID - Continue Daptomycin, Will need PICC line - PPM will be explanted today - Pain management with scheduled tylenol, Robaxin, Lyrica and PO dilaudid. Well controlled at this time 2) Acute hypoxemic respiratory failure CHFmrEF in exacerbation MERVIN Hospital course was complicated with acute hypoxemic respiratory failure secondary to CHF exacerbation. Echocardiogram showed EF of ~45 percent which is similar to echo last year. Chest x-ray showed evidence of pulmonary edema. Cardiology service was consulted. He received aggressive diuresis with IV Bumex. His oxygen has been weaned down to room air. Patient denies any shortness of breath. - Continue IV bumex 1 mg daily. Excellent urine output and renal functions are stable - Continue Lopressor and amlodipine for BP control. Would likely benefit from ACEi/ARB and MRA. - CPAP at night. Using it with supplemental oxygen 3) Atrial fibrillation s/p watchman AV block s/p PPM Patient was on anticoagulation until September 2024 which was eventually discontinued after his Watchman procedure and plan was to continue aspirin and amiodarone therapy. He he was originally scheduled to undergo ablation on 01/14/2025. -Given concern for lead vegetation there is plan for device explantation today. - Continue to monitor on telemetry - Continue amiodarone 200 mg daily and Lopressor 50 mg twice daily. Restart aspirin after his procedures - Plans for micra at some point this week 4) TABITHA Patient's baseline creatinine is 1 which trended up to 2 at the time of admission. Presumed to be cardiorenal. Improved with diuresis. Continue IV Bumex 1 mg daily 5) DM II Currently on Lantus and insulin sliding scale. Blood glucose levels are significantly elevated. Will increase Lantus to 10 units daily. Continue insulin sliding scale and Premeal insulin 3 units 3 times daily. Holding home metformin and Jardiance 6) Depression Tremors Patient was previously experiencing bilateral upper and lower extremity tremors. This was discussedwith neurology team and patient underwent MRI of the brain which did not show any acute abnormalities. Neurology team recommended adjusting dose of Lyrica and Wellbutrin since these are new medications. Decrease Lyrica to 100 mg 3 times daily 7) Normocytic anemia Counts stable Diet: NPO DVT ppx: Heparin Code: Full Quality Metrics DVT PROPHYLAXIS Risk Assessment Scores and Dates: VTE Time Out Orthopedics & NeuroSurgery VTE risk stratification: Standard or low risk (11/05/2024 12:44 PM)VTErisk low and NOT reassessed in last 5 days - Click here to document Chemical Prophylaxis heparin (porcine) 5000 unit/mL injection 5,000 Units Subcutaneous Every 8 hours scheduled [ORDER ONHOLD or LAST DOSE HELD - Please Review] Heparin Sodium (Porcine) 5000 Units Last dose 11/16/2024 5:14 PM Mechanical Prophylaxis SCDs are ordered - RIGHT (Knee High) Antibiotic Stewardship (Disclaimer : absence of data in section implies that patient is not on any antibiotics). ANTIBIOTIC TIME OUT Treatment Indication: bacteremia Current antibiotic/day of therapy: Anti-infectives (From admission, onward) Start Dose/Rate Route Frequency Ordered Stop 11/03/24 0900 DAPTOmycin (CUBICIN) 975 mg in sodium chloride (NS) 0.9 % 50 mL IVPB 10 mg/kg ?? 97.3 kg (Adjusted) 139 mL/hr over 30 Minutes Intravenous Every 24 hours 11/03/24 0849 Expected Date of Discharge 11/20/2024 Subjective Chief complaint Admit for BKA Patient is being seen for acute medical problems and follow-up for chronic medical issues as mentioned in the assessment and plan above. Patient was seen and examined at bedside. Appears comfortable and not in any acute distress. Statesthat his respiratory status has significantly improved. Worried about his HR once PPM is removed. Overnight Events/Patient Discussion: None Objective Vitals: 11/16/24 0022 11/16/24 0234 11/16/24 0500 11/16/24 0800 BP: (!) 93/58 (!) 115/56 119/59 Pulse: 63 68 67 63 Resp: Temp: 97.6 ??F (36.4 ??C) (!) 95.9 ??F (35.5 ??C) (!) 95.7 ??F (35.4 ??C) SpO2: 98% 99% 96% 96% 11/16/24 1527 11/16/24 1950 11/16/24 2115 11/17/24 0629 BP: (!) 107/58 (!) 123/57 (!) 110/57 Pulse: 60 65 76 61 Resp: Temp: 96.9 ??F (36.1 ??C) 96.6 ??F (35.9 ??C) 96.4 ??F (35.8 ??C) SpO2: 94% 94% 96% 93% Physical Exam Vitals reviewed. Constitutional: General: He is not in acute distress. Appearance: He is not ill-appearing. HENT: Mouth/Throat: Mouth: Mucous membranes are moist. Eyes: General: No scleral icterus. Conjunctiva/sclera: Conjunctivae normal. Cardiovascular: Rate and Rhythm: Normal rate and regular rhythm. Heart sounds: No murmur heard. Pulmonary: Effort: Pulmonary effort is normal. Breath sounds: Normal breath sounds. No wheezing or rales. Abdominal: General: Bowel sounds are normal. There is no distension. Palpations: Abdomen is soft. Tenderness: There is no abdominal tenderness. Musculoskeletal: Right lower leg: No edema. Comments: LLE BKA Skin: General: Skin is warm and dry. Neurological: Mental Status: He is alert. Mental status is at baseline. Psychiatric: Mood and Affect: Mood normal. Behavior: Behavior normal. Relevant data reviewed Results from last 7 days Lab Units 11/17/24 0500 WHITE BLOOD CELL COUNT Thou/uL 11.2* HEMOGLOBIN g/dL 8.2* HEMATOCRIT % 25.0* PLATELET COUNT Thou/uL 373 Results from last 7 days Lab Units 11/17/24 0720 11/17/24 0500 SODIUM mmol/L -- 128* POTASSIUM mmol/L -- 3.7 CHLORIDE mmol/L -- 87* CO2 mmol/L -- 30 BUN mg/dL -- 54* CREATININE mg/dL -- 1.8* EGFR -- 42* GLUCOSE mg/dL -- 171* GLUCOSE, POC mg/dL 206* -- CALCIUM mg/dL -- 9.4 Sign Fredi Powers MD 11/17/2024 10:06 AM * Roberto Carranza, BUSINESS QUALITY ASSURANCE ANALYST - 11/17/2024 9:36 AM EST Physical Therapy Progress Note Precautions/Restrictions: fall, aspiration, other (see comments) (Skin) Assessment Summary: Patient seen for PT follow up. L residual limb coil winder repair and nutmegger donned. Performed bed mobility and functional transfer training. Required Ax1 for mobility. Presents below functional baseline with impairments in static/dynamic standing balance and activity tolerance. Patient remains very motivated to participate in therapy sessions and has good support from family. Anticipate patient will be able to tolerate three hours of daily therapy at acute rehab when medically cleared. Progress Towards Goals: progress toward functional goals is good Outcome Measures: The Activity Measure for Post-Acute Care (AM-PAC) Basic Mobility Inpatient Short Form (6-clicks) zakiya standardized measure used to quantify functional deficits in mobility. The total score of the measure ranges from 6-24. A higher score indicates a higher level of independence with functional mobility. Current [facility] Basic Mobility Score: 16 Rehab Plan of Care PT will continue to follow while in house Continue therex for global strengthening Progress transfers and gait training as tolerated/ appropriate It is vital that patient continues to participate in daily mobility with interdisciplinary team, outside of PT sessions, to promote highest possible level of functional independence. PT Recommendations for Staff: Ax2 with RW for SPT. Egress as able. PT Frequency during Hospitalization: 2-3 times/wk Plan of Care Reviewed With: patient Objective Data/Intervention Bed Mobility Assessment/Intervention: Supine > sit with supervision. HOB elevated, bed railing utilized. Transfers Assessment/Intervention: Sit <> stand with min Ax1 and RW. Cues for sequencing. Gait/Stair Assessment/Intervention: Able to take 3-4 hops to R from bed > recliner with min Ax1 and RW. Cues for sequencing and safety. Patient demonstrated good self awareness throughout. Activity Tolerance/Endurance Assessment/Intervention: Fair for PT follow up. Vitals: Unmonitored/ asymptomatic Education: Role of PT, mobility techniques, safety, and IP PT goals Subjective I'm good with the chair. Flowsheet Data 11/17/24 0936 Physical Therapy Time and Intention PT Follow-Up Visit follow up treatment Mode of Treatment individual therapy;physical therapy Patient Effort good Symptoms Noted During/After Treatment dizziness;fatigue General Information Patient Profile Reviewed yes Patient/Family/Caregiver Comments/Observations I'm good with the chair. General Observations of Patient Semi reclined in bed, on RA, NAD. Cleared by RN. Agreeable to PT session. Existing Precautions/Restrictions fall;aspiration;other (see comments) (Skin) Pain Scale: Numbers Pre/Post-Treatment Pre/Posttreatment Pain Comment Endorsed L residual limb pain, did not quantify Cognition Cognitive Status WFL Mobility Left Lower Extremity (Weight-bearing Status) non weight-bearing (NWB) Coping Observed Emotional State calm;cooperative Verbalized Emotional State acceptance Family/Support Persons patient Plan of Care Review Plan of Care Reviewed With patient Safety Safety Factors wheels locked;ID band on;call light in reach;bed in low position;upper side rails raised x 2, lower side rail raised x 1 All Alarms alarm(s) activated and audible Enhanced Safety Measures bed alarm set Progressive Mobility Progressive Mobility Level Achieved Transferring to Chair [facility] Basic Mobility Turning from your back to your side while in a flat bed without using bedrails? 4 Moving from lying on your back to sitting on the side of a flat bed without using bedrails? 3 Moving to and from a bed to a chair (including wheelchair)? 3 Standing up from a chair using your arms? 3 To walk in a hospital room? 2 Climbing 3-5 steps with a railing? 1 [facility] Basic Mobility Score 16 Therapy Assessment/Plan (PT) Patient/Family Therapy Goals Statement (PT) To return home Therapy Frequency (PT) 2-3 times/wk PT Recommendations for Staff Ax2 with RW for SPT. Egress as able. Predicted Duration of Therapy Intervention (PT) LOS Progress Summary (PT) Progress Toward Functional Goals (PT) progress toward functional goals is good Therapy Plan Review/Discharge Plan (PT) Therapy Plan Review (PT) care plan/treatment goals reviewed;evaluation/treatment results reviewed;patient Transfer Goal 1 (PT) Progress/Outcome (Transfer Goal 1, PT) goal ongoing Sign: Roberto Carranza PTA * Ena Mtz MD - 11/17/2024 9:05 AM EST Images from the original note were not included. [facility] INFECTIOUS DISEASE Consult progress Note Name: Blas Genao Age: 63 y.o. 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 ID was consulted on 11/03-> recommended to start daptomycin/meropenem given prior history of MDRO's and follow cultures. 1. Polymicrobial pacemaker lead endocarditis 2. mitral valve endocarditis with small focal echodensity seen posterior to the mitral valve annulus and adjacent to Watchman device 3. acute hypoxic respiratory failure secondary to volume overload. Clinically improving, weaned to room air 4. Polymicrobial bacteremia: Source was left foot infection/ osteomyelitis; source control achievedwith left BKA on 11/05 -11/06 ,11/07,blood cultures = NGTD -11/04 (2) bld cx:MRSA -11/02(10/31) blood cultures: MRSA, Enterococcus faecalis, Enterococcus faecium 3. In the presence of MDR/polymicrobial bacteremia, concern for seeding of pacemaker. 4. Intermittent twitching of the hands, MRI of the brain showed no acute intercranial findings or suspicious intracranial lesions 5. H/O atrial fibrillation s/p Watchman device implantation in 2018 6.Right TMA with chronic wounds WBC: 11.2 platelets: 373 BUN/creatinine: 54/1.8 LFTs: Normal MRI brain: No acute intracranial findings or suspicious intracranial lesions Blood cultures: 11/02 and 11/04: MRSA, Enterococcus faecalis, Enterococcus faecium Recommendations/Plan: -Patient scheduled for AICD lead extraction today -He also has a watchman's device and we have to assume that this is infected as well. Discussed with EP team, this device cannot be removed transvenously. -Continue IV daptomycin -Check CK level in a.m. -Will need long-term IV antibiotics -He can have long-term line placement 24 hours after extraction of AICD Will follow Current antibiotic/day of therapy: Anti-infectives (From admission, onward) Start Dose/Rate Route Frequency Ordered Stop 11/03/24 0900 DAPTOmycin (CUBICIN) 975 mg in sodium chloride (NS) 0.9 % 50 mL IVPB 10 mg/kg ?? 97.3 kg (Adjusted) 139 mL/hr over 30 Minutes Intravenous Every 24 hours 11/03/24 0849 Sign Ena Mtz MD, FACP, CWSP [facility] Infectious Diseases Available via [employer] SUBJECTIVE Afebrile. No new complaints Feels better. On room air CURRENT MEDICATIONS: Reviewed OBJECTIVE PHYSICAL EXAMINATION: Vitals: 11/16/24 1527 11/16/24 1950 11/16/24 2115 11/17/24 0629 BP: (!) 107/58 (!) 123/57 (!) 110/57 BP Location: Right arm Right arm Right arm Patient Position: Lying Sitting Lying Pulse: 60 65 76 61 Resp: 18 18 18 Temp: 96.9 ??F (36.1 ??C) 96.6 ??F (35.9 ??C) 96.4 ??F (35.8 ??C) TempSrc: Tympanic Tympanic Tympanic SpO2: 94% 94% 96% 93% Weight: Height: Intake/Output Summary (Last 24 hours) at 11/17/2024 0905 Last data filed at 11/17/2024 0629 Gross per 24 hour Intake 10 ml Output 2970 ml Net -2960 ml General appearance- NAD Extremities-left BKA DEVICE TIME OUT Peripheral IV - Single Lumen (Adult) 11/12/24 1210 cephalic vein (lateral side of arm), left 22 gauge;1 in length;3/4 in length (Active) Number of days: 5 Peripheral IV - Single Lumen (Adult) 11/12/24 1744 median vein (underside of arm), right 22 gauge;1in length (Active) Number of days: 5 52 min spent reviewing records, evaluating the patient, discussing with other providers and formulating a plan of care Of note, some information is being carried forward from prior records for informational purposes only and is being cited so that efficiency, safety and quality of this patient's care is not compromised. This report was generated using [employer] dictation software. Although every attempt has been made by the provider to proofread this document, occasional misspellings and typographical errors may still be present. * Maddison Villalpando MD - 11/16/2024 2:35 PM EST [facility] MEDICINE PROGRESS NOTE Assessment & Plan Brief Summary: This is a 63-year-old male with past medical history of a flutter/A-fib s/p Watchman procedure, AV block s/p PPM, chronic diastolic heart failure, hypertension, hyperlipidemia, MERVIN on CPAP, CKD stageIII, PAD/PVD who presented as direct admit with plans for left 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 s/p calcaneal ostectomy on 08/2024 with wound VAC placement and underwent left BKA on 11/05. Left foot wound grew MRSA, Enterococcus faecalis, VRE, chronic bacterium species and gram-negative bacilli. Hospital course further complicated with MRSA and VRE/Enterococcus faecalis/VCM bacteremia and cardiology was consulted. 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 He developed acute hypoxic respiratory failure secondary to CHF exacerbation and transferred to medical stepdown unit forfurther management and was aggressively diuresed with Bumex drip and weaned down on supplemental oxy gen. 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 Repeat blood cultures are negative so far. Patient was on initially on ceftaroline and daptomycin later switched on 11/12 to daptomycin. TATIANNA on 11/12- with possible small mobile vegetation in the mitral valve, per cardiology, pt will need follow up TATIANNA in 1 week from last one. Holding off on CT surgery consult at this time. MRI brain shows no evidence of septic emboli. Holding Jardiance given infection. Per EP cardiology, planning for pacemaker extraction this tomorrow. Pacemaker insertion timing to be decided. -Acute hypoxic respiratory failure secondary to volume overload -Acute HFmrEF Patient is on oxygen by nasal cannula at 5 LPM Bumex drip was stopped yesterday due to significant bump in creatinine, TABITHA is improving today. For volume overload, he is on Bumex 1 Mg IV twice daily, changing to 1 mg daily, approaching euvolemia, will follow cardiology inputs. Monitor and replete electrolytes to keep K greater than 4 and Mg greater than 2. GDMT: Remains on metoprolol tartarate 50 BID. Jardiance held d/t infection. ARB initiation after further improvement of TABITHA. A-fib/A-flutter s/p Watchman procedure AVB s/p PPM Cardiology following. Appreciate inputs Continue with amiodarone 200 mg daily and Lopressor 50 mg twice daily for rate control. Pacemaker removal plan as mentioned above. Monitor on telemetry. TABITHA on CKD stage III Baseline creatinine of 1.0-1.3. TABITHA likely in the setting of cardiorenal syndrome Bumex drip stopped. Bumex @ 1 mg IV BID, good urine output. Cr going up, will change to Bumex 1 mgdaily, will follow cardiology inputs. Intermittent jerking/tremor like movements of both hands: MRI of the brain without any evidence of septic emboli, have requested for neurology inputs. Acute normocytic anemia H&H remained stable Comorbid conditions: -GERD: continue with protonix -History of MERVIN on CPAP -Type 2 diabetes: Hemoglobin A1c of 8.7 on 08/2024. Currently on sliding scale insulin. Fingersticks checks 3 times daily AC. On hypoglycemia protocol. -History of alcohol use disorder: Continue with folic acid, thiamine and multivitamin. -Depression: Continue Wellbutrin. Scheduled Meds: acetaminophen, 975 mg, Oral, Q6H JUDSON amiODARONE, 200 mg, Oral, Daily amLODIPine, 10 mg, Oral, Daily bumetanide, 1 mg, Intravenous, Q12H buPROPion, 150 mg, Oral, BID calcium citrate, 950 mg, Oral, BID with meals chlorhexidine gluconate, , Topical, Daily cholecalciferol, 2,000 Units, Oral, Daily cyanocobalamin, 2,500 mcg, Oral, Daily DAPTOmycin, 10 mg/kg (Adjusted), Intravenous, Q24H donepezil, 10 mg, Oral, QAM [Provider Held] empagliflozin, 25 mg, Oral, Daily folic acid, 1 mg, Oral, Daily [Provider Held] glimepiride, 2 mg, Oral, Daily with breakfast heparin (porcine), 5,000 Units, Subcutaneous, Q8H JUDSON insulin glargine, 5 Units, Subcutaneous, Daily insulin lispro, 1-6 Units, Subcutaneous, TID with meals insulin lispro, 3 Units, Subcutaneous, TID with meals methocarbamol, 1,000 mg, Oral, 4x Daily metoPROLOL TARTRATE, 50 mg, Oral, BID multivitamin with minerals, 1 tablet, Oral, Daily nicotine, 1 patch, Transdermal, Daily PANTOprazole, 40 mg, Oral, Daily [Provider Held] pravastatin, 20 mg, Oral, Daily pregabalin, 150 mg, Oral, TID senna-docusate, 2 tablet, Oral, BID thiamine, 200 mg, Oral, Daily Continuous Infusions: PRN Meds: bisacodyl bisacodyl calcium carbonate fentaNYL OR fentaNYL OR fentaNYL HYDROmorphone HYDROmorphone ipratropium-albuterol lactulose magnesium hydroxide melatonin mineral oil naloxone ondansetron ondansetron polyethylene glycol Discharge Barriers: Clinical status Quality Metrics DVT PROPHYLAXIS Risk Assessment Scores and Dates: VTE Time Out Orthopedics & NeuroSurgery VTE risk stratification: Standard or low risk (11/05/2024 12:44 PM)VTErisk low and NOT reassessed in last 5 days - Click here to document Chemical Prophylaxis heparin (porcine) 5000 unit/mL injection 5,000 Units Subcutaneous Every 8 hours scheduled Heparin Sodium (Porcine) 5000 Units Last dose 11/16/2024 9:48 AM Mechanical Prophylaxis SCDs are ordered - RIGHT (Knee High) Antibiotic Stewardship Treatment Indication: Bacteremia, endocarditis Expected Date of Discharge 11/20/2024 Subjective Chief complaint No chief complaint on file. Patient is being seen for acute medical problems and follow-up for chronic medical issues as mentioned in the assessment and plan above. Subjective Pt states his breathing is fine and denies shortness of breath. Endorses jerking/tremors in hands intermittently. Does not have any chest pain, dizziness or lightheadedness. No fever or chills. Objective Vitals: 11/15/24 0850 11/15/24 1200 11/15/24 1604 11/15/241999 BP: (!) 125/58 (!) 105/57 106/59 135/62 Pulse: 72 62 73 65 Resp: Temp: 97.9 ??F (36.6 ??C) 97.5 ??F (36.4 ??C) 97.4 ??F (36.3 ??C) SpO2: 99% 97% 98% 11/16/24 0022 11/16/24 0234 11/16/24 0500 11/16/24 0800 BP: (!) 93/58 (!) 115/56 119/59 Pulse: 63 68 67 63 Resp: Temp: 97.6 ??F (36.4 ??C) (!) 95.9 ??F (35.5 ??C) (!) 95.7 ??F (35.4 ??C) SpO2: 98% 99% 96% 96% Physical Exam General: No Acute Distress, on oxygen by nasal canula Sclerae anicteric, Conjunctivae pink, Mucous membranes moist Lungs: Clear to auscultation CVS: Regular rhythm, Normal S1, Normal S2 Abdomen: Normal bowel sounds, Soft, Non-tender. Extremities: No edema, amputation status of LLE AKA Neurological: Alert, Oriented X3, Normal speech, symmetrical face, No focal sensory or motor deficits. Relevant data reviewed Results from last 7 days Lab Units 11/16/24 0723 WHITE BLOOD CELL COUNT Thou/uL 10.7 HEMOGLOBIN g/dL 8.1* HEMATOCRIT % 25.6* PLATELET COUNT Thou/uL 408 Results from last 7 days Lab Units 11/16/24 1204 11/16/24 0737 11/16/24 0723 SODIUM mmol/L -- -- 130* POTASSIUM mmol/L -- -- 3.6 CHLORIDE mmol/L -- -- 87* CO2 mmol/L -- -- 32 BUN mg/dL -- -- 55* CREATININE mg/dL -- -- 1.9* EGFR -- -- 39* GLUCOSE mg/dL -- -- 190* GLUCOSE, POC mg/dL 246* < > -- CALCIUM mg/dL -- -- 9.1 < > = values in this interval not displayed. Sign Maddison Villalpando MD 11/16/2024 2:35 PM * Chris Taylor MD - 11/16/2024 11:26 AM EST Images from the original note were not included. Coverage for Dr. Mtz [facility] Progress Note Name: Blas Genao Age: 63 y.o. 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 ID was consulted on 11/03-> recommended to start daptomycin/meropenem given prior history of MDRO's and follow cultures. 1. Acute hypoxic respiratory failure secondary to volume overload. Clinically improving, now tapered down to 3 L of O2 nasal cannula with CPAP at nighttime 2. Polymicrobial bacteremia: Source was left foot infection/ osteomyelitis; source control achievedwith left BKA on 11/05 -11/06 ,11/07,blood cultures = NGTD -11/04 (10/31) bld cx:MRSA -11/02(10/31) blood cultures: MRSA, Enterococcus faecalis, Enterococcus faecium 3. In the presence of MDR/polymicrobial bacteremia, concern for seeding of pacemaker. -TTE: Left ventricle is mildly dilated, right ventricle is dilated, pacemaker wire in the right atrium, moderately thickened mitral leaflets, moderate to severe mitral regurgitation, cannot rule out vegetation on mitral valve leaflets, moderate tricuspid regurgitation 4. Intermittent twitching of the hands, MRI of the brain showed no acute intercranial findings or suspicious intracranial lesions 5. H/O atrial fibrillation s/p Watchman device implantation in 2018 6.Right TMA with chronic wounds 7. Inflammatory markers CRP 29.62, ESR 79 8. Antibiotics -Daptomycin, 11/03 -Meropenem, 11/03-11/05 -Ceftaroline, 11/05-11/12 -Aztreonam, 11/07-11/10 Plan: -Awaiting AICD device extraction with Micra implantation this week 1. Continue daptomycin iv 2. Obtain CPK/LFTs every 3 days while on IV daptomycin 3. Pursue PICC line 4. Neurology input pending for intermittent twitching Communicated with the hospitalist Dr. Mtz will resume patient's care on Friday ANTIBIOTIC TIME OUT Current antibiotic/day of therapy: Anti-infectives (From admission, onward) Start Dose/Rate Route Frequency Ordered Stop 11/03/24 0900 DAPTOmycin (CUBICIN) 975 mg in sodium chloride (NS) 0.9 % 50 mL IVPB 10 mg/kg ?? 97.3 kg (Adjusted) 139 mL/hr over 30 Minutes Intravenous Every 24 hours 11/03/24 0849 OBJECTIVE Physical Examination: Vitals: 11/16/24 0800 BP: 119/59 Pulse: 63 Resp: 18 Temp: (!) 95.7 ??F (35.4 ??C) SpO2: 96% Weight: Height: General appearance - male On O22.5 Liters nasal cannula Lungs: Improved air entry bilaterally Cardiovascular: Rate rhythm regular Abdomen: Soft, nontender Extremities: Left BKA stump with coil winder repair garment, and ampul sheIld LABORATORY AND DIAGNOSTIC DATA: Lab and imaging data were reviewed by me Results from last 7 days Lab Units 11/16/24 0723 11/15/24 0808 11/14/24 1031 WHITE BLOOD CELL COUNT Thou/uL 10.7 11.8* 10.6 HEMOGLOBIN g/dL 8.1* 8.9* 8.9* HEMATOCRIT % 25.6* 28.9* 28.9* PLATELET COUNT Thou/uL 408 485* 471* Results from last 7 days Lab Units 11/16/24 0737 11/16/24 0723 11/15/24201311/15/24 1109 11/15/24 0808 11/14/24 1133 11/14/24 1031 11/11/24 0235 11/11/24 0200 SODIUM mmol/L -- 130* -- -- 131* -- 132* < > 137 POTASSIUM mmol/L -- 3.6 -- -- 3.9 -- 4.0 < > 3.8 CHLORIDE mmol/L -- 87* -- -- 85* -- 85* < > 99 CO2 mmol/L -- 32 -- -- 34* -- 34* < > 27 BUN mg/dL -- 55* -- -- 59* -- 65* < > 56* CREATININE mg/dL -- 1.9* -- -- 1.8* -- 2.1* < > 2.0* CALCIUM mg/dL -- 9.1 -- -- 9.4 -- 9.4 < > 8.7 GLUCOSE mg/dL -- 190* -- -- 218* -- 319* < > 151* GLUCOSE, POC mg/dL 211* -- 330* < > -- < > -- < > -- EGFR -- 39* -- -- 42* -- 35* < > 37* ALBUMIN g/dL -- -- -- -- -- -- -- -- 2.6* PROTEIN, TOTAL g/dL -- -- -- -- -- -- -- -- 6.4 BILIRUBIN TOTAL mg/dL -- -- -- -- -- -- -- -- 0.2 ALK PHOS U/L -- -- -- -- -- -- -- -- 207* ALT U/L -- -- -- -- -- -- -- -- 14 AST U/L -- -- -- -- -- -- -- -- 24 < > = values in this interval not displayed. Lab Results Component Value Date ALT 14 11/11/2024 AST 24 11/11/2024 ALKPHOS 207 (H) 11/11/2024 BILITOT 0.2 11/11/2024 Creatine Kinase (CK) Date Value Ref Range Status 11/11/2024 37 24 - 204 U/L Final 11/08/2024 91 24 - 204 U/L Final 11/05/2024 49 24 - 204 U/L Final proBNP, N-terminal Date Value Ref Range Status 11/15/2024 429 (H) <125 pg/mL Final Lab Results Component Value Date SEDRATE 79 (H) 11/02/2024 Lab Results Component Value Date CRP 29.62 (H) 11/02/2024 Blood Cultures: Lab Results Component Value Date CULTURE Sterile after 5 days 11/07/2024 Urine Cultures: No results found for: CRYSUA , HYALNCSTUA , UROBILINOGEN , BILIUA , BLOODUA , CLARITYUA , COLORUA , UACOMMENT , GLUCU , KETONESUA , LEUKOCYTESUA , NITRITEUA , PHUA , PROTEINUA , RBCUA , SPECIMEN , SPECGRAVUA , SQEPIUA , WBCUA OTHER MICROBIOLOGY: C. Difficile: No results found for: CDIFFTOX , NAP1 Imaging Studies XR Foot 1 view-Left Result Date: 11/02/2024 This exam was performed in office at [facility] and images reviewed by orthopedic provider. Any findings are documented within ambulatory encounter note on date of service. Current Medications: Current Facility-Administered Medications Medication Dose Route Frequency Provider Last Rate Last Admin acetaminophen (TYLENOL) tablet 975 mg 975 mg Oral Q6H JUDSON Luis Degroot MD 975 mg at 11/16/24 0946 amiODARONE (PACERONE) tablet 200 mg 200 mg Oral Daily Luis Degroot MD 200 mg at 11/16/24 0946 amLODIPine (NORVASC) tablet 10 mg 10 mg Oral Daily Luis Degroot MD 10 mg at 11/16/24 0946 bisacodyl (DULCOLAX) EC tablet 5 mg 5 mg Oral Daily PRN Luis Degroot MD bisacodyl (DULCOLAX) suppository 10 mg 10 mg Rectal Daily PRN Luis Degroot MD bumetanide (BUMEX) injection 1 mg 1 mg Intravenous Q12H Maddison Villalpando MD 1 mg at 11/16/24 0949 buPROPion (WELLBUTRIN SR) 12 hr tablet 150 mg 150 mg Oral BID Luis Degroot MD 150 mg at 11/16/24 0946 calcium carbonate (TUMS) chewable tablet 1,000 mg 1,000 mg Oral Q12H PRN Luis Degroot MD calcium citrate (CALCITRATE) tablet 950 mg 950 mg Oral BID with meals Luis Degroot MD 950 mg at 11/16/24 0946 chlorhexidine gluconate 2 % wipes - central line CHG application Topical Daily Luis Degroot MD 1 each at 11/16/24 0950 cholecalciferol tablet 2,000 Units 2,000 Units Oral Daily Luis Degroot MD 2,000 Units at 11/16/24 0946 cyanocobalamin (VITAMIN B-12) tablet 2,500 mcg 2,500 mcg Oral Daily Luis Degroot MD 2,500 mcg at 11/16/24 0947 DAPTOmycin (CUBICIN) 975 mg in sodium chloride (NS) 0.9 % 50 mL IVPB 10 mg/kg (Adjusted) Intravenous Q24H Luis Degroot MD Stopped at 11/15/24 1544 donepezil (ARICEPT) tablet 10 mg 10 mg Oral QAM Luis Degroot MD 10 mg at 11/16/24 0947 [Provider Held] empagliflozin (JARDIANCE) 25 mg 25 mg Oral Daily Nani Hollis PA-C 25 mg at 11/04/24 0756 fentaNYL (SUBLIMAZE) 100 mcg/2 mL injection 10 mcg 10 mcg Intravenous Q5 Min PRN Hong Nance MD Or fentaNYL (SUBLIMAZE) 100 mcg/2 mL injection 12.5 mcg 12.5 mcg Intravenous Q5 Min PRN Hong Nance MD Or fentaNYL (SUBLIMAZE) 100 mcg/2 mL injection 25 mcg 25 mcg Intravenous Q5 Min PRN Hong Nance MD folic acid (FOLVITE) tablet 1 mg 1 mg Oral Daily Luis Degroot MD 1 mg at 11/16/24 0947 [Provider Held] glimepiride (AMARYL) tablet 2 mg 2 mg Oral Daily with breakfast Nani Hollis PA-C 2 mg at 11/04/24 0757 heparin (porcine) 5000 unit/mL injection 5,000 Units 5,000 Units Subcutaneous Q8H JUDSON Luis Degroot MD 5,000 Units at 11/16/24 0948 HYDROmorphone (DILAUDID) tablet 2 mg 2 mg Oral Q3H PRN Luis Degroot MD 2 mg at 11/11/24 1009 HYDROmorphone (DILAUDID) tablet 4 mg 4 mg Oral Q3H PRN Luis Degroot MD 4 mg at 11/15/24 2041 insulin glargine (LANtus/SEMGLEE) 100 units/mL injection 5 Units 5 Units Subcutaneous Daily Maddison Villalpando MD 5 Units at 11/16/24 0949 insulin lispro (HumaLOG/ADMELOG) 100 units/mL injection 1-6 Units 1-6 Units Subcutaneous TID with meals Maddison Villalpando MD 2 Units at 11/16/24 0949 insulin lispro (HumaLOG/ADMELOG) 100 units/mL injection 3 Units 3 Units Subcutaneous TID with Samir Villalpando MD 3 Units at 11/16/24 0947 ipratropium-albuterol (DUONEB) 0.5-2.5 mg/3 mL nebulizer solution 3 mL 3 mL Nebulization Q2H PRN Luis Degroot MD 3 mL at 11/07/24 1025 lactulose (ENULOSE) 10 gm/15 mL solution 20 g 20 g Oral Q4H PRN Luis Degroot MD magnesium hydroxide (MILK OF MAGNESIA) 400 mg/5 mL suspension 30 mL 30 mL Oral Q12H PRN Luis Degroot MD melatonin tablet 3 mg 3 mg Oral Nightly PRN Luis Degroot MD 3 mg at 11/13/24 215 methocarbamol (ROBAXIN) tablet 1,000 mg 1,000 mg Oral 4x Daily Luis Degroot MD 1,000 mg at metoPROLOL TARTRATE (LOPRESSOR) tablet 50 mg 50 mg Oral BID Luis Degroot MD 50 mg at 11/16/2446 mineral oil (FLEET OIL) enema 1 enema 1 enema Rectal Daily PRN Luis Degroot MD multivitamin with minerals tablet 1 tablet 1 tablet Oral Daily Luis Degroot MD 1 tablet at naloxone (NARCAN) 0.4 mg/mL injection 0.4 mg 0.4 mg Intravenous Q5 Min PRN Luis Degroot MD nicotine (NICODERM CQ) 21 MG/24HR patch 1 patch 1 patch Transdermal Daily Luis Degroot MD 1 patch at 11/16/2445 ondansetron (ZOFRAN) injection 4 mg 4 mg Intravenous Q6H PRN Luis Degroot MD ondansetron (ZOFRAN) injection 4 mg 4 mg Intravenous Once PRN Hong Nance MD PANTOprazole (PROTONIX) EC tablet 40 mg 40 mg Oral Daily Luis Degroot MD 40 mg at 11/16/24 0947 polyethylene glycol (miraLAx) packet 17 g 17 g Oral Daily PRN Luis Degroot MD [Provider Held] pravastatin (PRAVACHOL) tablet 20 mg 20 mg Oral Daily Nani Hollis PA-C pregabalin (LYRICA) capsule 150 mg 150 mg Oral TID Nani Hollis PA-C 150 mg at 11/16/24 0946 senna-docusate (SENNA-S) 8.6-50 MG tablet 2 tablet 2 tablet Oral BID Luis Degroot MD 2 tablet at 11/16/24 0946 thiamine mononitrate (VITAMIN B-1) tablet 200 mg 200 mg Oral Daily Luis Degroot MD 200 mg at 11/16/24 0946 ALLERGIES: Allergies Allergen Reactions Lisinopril Other (See Comments) Dehydration I reviewed the prescribed Medications and new Laboratory Blood Work. Monitor for drug related adverse events. I reviewed all new Imaging Studies (actual images) and compared to prior where applicable Of note, some information is being carried forward from prior records for informational purposes only and is being cited so that efficiency, safety and quality of this patient's care is not compromised This report was generated using [employer] dictation software. Although every attempt has been made by the provider to proofread this document, occasional misspellings and typographical errors Sign Chris Taylor MD, [facility], [facility] Infectious Diseases Available via [employer] 11/16/2024 11:27 AM * Maddison Villalpando MD - 11/15/2024 5:16 PM EST [facility] MEDICINE PROGRESS NOTE Assessment & Plan Brief Summary: This is a 63-year-old male with past medical history of a flutter/A-fib s/p Watchman procedure, AV block s/p PPM, chronic diastolic heart failure, hypertension, hyperlipidemia, MERVIN on CPAP, CKD stageIII, PAD/PVD who presented as direct admit with plans for left 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 s/p calcaneal ostectomy on 08/2024 with wound VAC placement and underwent left BKA on 11/05. Left foot wound grew MRSA, Enterococcus faecalis, VRE, chronic bacterium species and gram-negative bacilli. Hospital course further complicated with MRSA and VRE/Enterococcus faecalis/VCM bacteremia and cardiology was consulted. 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 He developed acute hypoxic respiratory failure secondary to CHF exacerbation and transferred to medical stepdown unit forfurther management and was aggressively diuresed with Bumex drip and weaned down on supplemental oxy gen. 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 Repeat blood cultures are negative so far. Patient was on initially on ceftaroline and daptomycin later switched on 11/12 to daptomycin. TATIANNA on 11/12- with possible small mobile vegetation in the mitral valve, per cardiology, pt will need follow up TATIANNA in 1 week from last one. Holding off on CT surgery consult at this time. MRI brain shows no evidence of septic emboli. Holding Jardiance given infection. Per EP cardiology, planning for pacemaker extraction this week. Will also need pacemaker insertion,timing to be decided. -Acute hypoxic respiratory failure secondary to volume overload -Acute HFmrEF Patient is on oxygen by nasal cannula at 5 LPM Bumex drip was stopped yesterday due to significant bump in creatinine, TABITHA is improving today. Still has volume overload on exam we are keeping him on Bumex 1 Mg IV twice daily from today. BNP has been improving, Monitor and replete electrolytes to keep K greater than 4 and Mg greater than 2. GDMT: Remains on metoprolol tartarate 50 BID. Jardiance held d/t infection. ARB initiation after further improvement of TABITHA. A-fib/A-flutter s/p Watchman procedure AVB s/p PPM Cardiology following. Appreciate inputs Continue with amiodarone 200 mg daily and Lopressor 50 mg twice daily for rate control. Pacemaker removal plan as mentioned above. Monitor on telemetry. TABITHA on CKD stage III Baseline creatinine of 1.0-1.3. TABITHA likely in the setting of cardiorenal syndrome Bumex drip stopped. Now on Bumex 1 mg IV BID Intermittent jerking/tremor like movements of both hands: MRI of the brain without any evidence of septic emboli, will request neurology inputs. Acute normocytic anemia H&H remained stable Comorbid conditions: -GERD: continue with protonix -History of MERVIN on CPAP -Type 2 diabetes: Hemoglobin A1c of 8.7 on 08/2024. Currently on sliding scale insulin. Fingersticks checks 3 times daily AC. On hypoglycemia protocol. -History of alcohol use disorder: Continue with folic acid, thiamine and multivitamin. -Depression: Continue Wellbutrin. Scheduled Meds: acetaminophen, 975 mg, Oral, Q6H JUDSON amiODARONE, 200 mg, Oral, Daily amLODIPine, 10 mg, Oral, Daily buPROPion, 150 mg, Oral, BID calcium citrate, 950 mg, Oral, BID with meals chlorhexidine gluconate, , Topical, Daily cholecalciferol, 2,000 Units, Oral, Daily cyanocobalamin, 2,500 mcg, Oral, Daily DAPTOmycin, 10 mg/kg (Adjusted), Intravenous, Q24H donepezil, 10 mg, Oral, QAM [Provider Held] empagliflozin, 25 mg, Oral, Daily folic acid, 1 mg, Oral, Daily [Provider Held] glimepiride, 2 mg, Oral, Daily with breakfast heparin (porcine), 5,000 Units, Subcutaneous, Q8H JUDSON insulin lispro, 1-6 Units, Subcutaneous, TID with meals [Provider Held] insulin lispro, 3 Units, Subcutaneous, TID with meals methocarbamol, 1,000 mg, Oral, 4x Daily metoPROLOL TARTRATE, 50 mg, Oral, BID multivitamin with minerals, 1 tablet, Oral, Daily nicotine, 1 patch, Transdermal, Daily PANTOprazole, 40 mg, Oral, Daily [Provider Held] pravastatin, 20 mg, Oral, Daily pregabalin, 150 mg, Oral, TID senna-docusate, 2 tablet, Oral, BID thiamine, 200 mg, Oral, Daily Continuous Infusions: PRN Meds: bisacodyl bisacodyl calcium carbonate fentaNYL OR fentaNYL OR fentaNYL HYDROmorphone HYDROmorphone ipratropium-albuterol lactulose magnesium hydroxide melatonin mineral oil naloxone ondansetron ondansetron polyethylene glycol Discharge Barriers: Clinical status Quality Metrics DVT PROPHYLAXIS Risk Assessment Scores and Dates: VTE Time Out Orthopedics & NeuroSurgery VTE risk stratification: Standard or low risk (11/05/2024 12:44 PM)VTErisk low and NOT reassessed in last 5 days - Click here to document Chemical Prophylaxis heparin (porcine) 5000 unit/mL injection 5,000 Units Subcutaneous Every 8 hours scheduled Heparin Sodium (Porcine) 5000 Units Last dose 11/15/2024 4:15 PM Mechanical Prophylaxis SCDs are ordered - RIGHT (Knee High) Antibiotic Stewardship Treatment Indication: Bacteremia, endocarditis Expected Date of Discharge 11/19/2024 Subjective Chief complaint No chief complaint on file. Patient is being seen for acute medical problems and follow-up for chronic medical issues as mentioned in the assessment and plan above. Subjective Pt states his breathing is fine and denies shortness of breath. Endorses jerking/tremors in hands intermittently. Does not have any chest pain, dizziness or lightheadedness. No fever or chills. Objective Vitals: 11/14/24 1639 11/14/24 1935 11/15/24 0019 11/15/24 0419 BP: (!) 115/57 (!) 115/56 (!) 114/55 (!) 116/55 Pulse: 61 61 67 61 Resp: 18 18 18 18 Temp: 97 ??F (36.1 ??C) 97 ??F (36.1 ??C) 97.2 ??F (36.2 ??C) 97.6 ??F (36.4 ??C) SpO2: 92% 97% 96% 97% 11/15/24 0700 11/15/24 0850 11/15/24 1200 11/15/24 1604 BP: (!) 116/58 (!) 125/58 (!) 105/57 106/59 Pulse: 65 72 62 73 Resp: 18 18 18 Temp: 97.9 ??F (36.6 ??C) 97.5 ??F (36.4 ??C) SpO2: 97% 99% 97% Physical Exam General: No Acute Distress, on oxygen by nasal canula Sclerae anicteric, Conjunctivae pink, Mucous membranes moist Lungs: Clear to auscultation CVS: Regular rhythm, Normal S1, Normal S2 Abdomen: Normal bowel sounds, Soft, Non-tender. Extremities: No edema. Neurological: Alert, Oriented X3, Normal speech, symmetrical face, No focal sensory or motor deficits. Relevant data reviewed Results from last 7 days Lab Units 11/15/24 0808 WHITE BLOOD CELL COUNT Thou/uL 11.8* HEMOGLOBIN g/dL 8.9* HEMATOCRIT % 28.9* PLATELET COUNT Thou/uL 485* Results from last 7 days Lab Units 11/15/24 1610 11/15/24 1109 11/15/24 0808 SODIUM mmol/L -- -- 131* POTASSIUM mmol/L -- -- 3.9 CHLORIDE mmol/L -- -- 85* CO2 mmol/L -- -- 34* BUN mg/dL -- -- 59* CREATININE mg/dL -- -- 1.8* EGFR -- -- 42* GLUCOSE mg/dL -- -- 218* GLUCOSE, POC mg/dL 308* < > -- CALCIUM mg/dL -- -- 9.4 < > = values in this interval not displayed. Sign Maddison Villalpando MD 11/15/2024 5:16 PM * Chris Taylor MD - 11/15/2024 1:10 PM EST Images from the original note were not included. Coverage for Dr. Mtz [facility] ID Progress Note Name: Blas Genao Age: 63 y.o. 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 ID was consulted on 11/03-> recommended to start daptomycin/meropenem given prior history of MDRO's and follow cultures. 1. Acute hypoxic respiratory failure secondary to volume overload. Currently on Bumex 2. Polymicrobial bacteremia: Source was left foot infection/ osteomyelitis. -Source control achieved with left BKA on 11/05 -11/06 ,11/07,blood cultures = NGTD -11/04 (2/2) bld cx:MRSA -11/02(2) blood cultures: MRSA, Enterococcus faecalis, Enterococcus faecium -10/27: Left foot wound culture at [place]: MRSA, Enterococcus faecalis, VRE, Corynebacterium species and gram-negative bacilli on Gram stain 3. In the presence of MDR/polymicrobial bacteremia, concern for seeding of pacemaker. -TTE: Left ventricle is mildly dilated, right ventricle is dilated, pacemaker wire in the right atrium, moderately thickened mitral leaflets, moderate to severe mitral regurgitation, cannot rule out vegetation on mitral valve leaflets, moderate tricuspid regurgitation 4. H/O atrial fibrillation s/p Watchman device implantation in 2018 5.Right TMA with chronic wounds 6. Inflammatory markers CRP 29.62, ESR 79 7. Antibiotics -Daptomycin, 11/03 -Meropenem, 11/03-11/05 -Ceftaroline, 11/05-11/12 -Aztreonam, 11/07-11/10 Plan: -Weekend events reviewed -MRI of the brain showed no acute intracranial findings or suspicious intracranial lesions -Awaiting AICD device extraction Continue daptomycin iv 2. Obtain neurology input as he continues to have intermittent twitching ANTIBIOTIC TIME OUT Current antibiotic/day of therapy: Anti-infectives (From admission, onward) Start Dose/Rate Route Frequency Ordered Stop 11/03/24 0900 DAPTOmycin (CUBICIN) 975 mg in sodium chloride (NS) 0.9 % 50 mL IVPB 10 mg/kg ?? 97.3 kg (Adjusted) 139 mL/hr over 30 Minutes Intravenous Every 24 hours 11/03/24 0849 OBJECTIVE Physical Examination: Vitals: 11/15/24 1200 BP: (!) 105/57 Pulse: 62 Resp: 18 Temp: 97.9 ??F (36.6 ??C) SpO2: 99% Weight: Height: General appearance - male Sitting in bedside recliner. On O2 nasal cannula Able to talk in complete sentences without problems Lungs: Improved air entry bilaterally Cardiovascular: Rate rhythm regular Abdomen soft nontender extremities left BKA stump site covered LABORATORY AND DIAGNOSTIC DATA: Lab and imaging data were reviewed by me Results from last 7 days Lab Units 11/15/24 0808 11/14/24 1031 11/13/24 0730 WHITE BLOOD CELL COUNT Thou/uL 11.8* 10.6 11.8* HEMOGLOBIN g/dL 8.9* 8.9* 9.2* HEMATOCRIT % 28.9* 28.9* 29.8* PLATELET COUNT Thou/uL 485* 471* 486* Results from last 7 days Lab Units 11/15/24 1109 11/15/24 0808 11/15/24 0736 11/14/24 1133 11/14/24 1031 11/13/24 0812 11/13/24 0730 11/11/24 0235 11/11/24 0200 SODIUM mmol/L -- 131* -- -- 132* -- 140 < > 137 POTASSIUM mmol/L -- 3.9 -- -- 4.0 -- 3.6 < > 3.8 CHLORIDE mmol/L -- 85* -- -- 85* -- 91* < > 99 CO2 mmol/L -- 34* -- -- 34* -- 35* < > 27 BUN mg/dL -- 59* -- -- 65* -- 44* < > 56* CREATININE mg/dL -- 1.8* -- -- 2.1* -- 1.7* < > 2.0* CALCIUM mg/dL -- 9.4 -- -- 9.4 -- 9.7 < > 8.7 GLUCOSE mg/dL -- 218* -- -- 319* -- 154* < > 151* GLUCOSE, POC mg/dL 305* -- 230* < > -- < > -- < > -- EGFR -- 42* -- -- 35* -- 45* < > 37* ALBUMIN g/dL -- -- -- -- -- -- -- -- 2.6* PROTEIN, TOTAL g/dL -- -- -- -- -- -- -- -- 6.4 BILIRUBIN TOTAL mg/dL -- -- -- -- -- -- -- -- 0.2 ALK PHOS U/L -- -- -- -- -- -- -- -- 207* ALT U/L -- -- -- -- -- -- -- -- 14 AST U/L -- -- -- -- -- -- -- -- 24 < > = values in this interval not displayed. Lab Results Component Value Date ALT 14 11/11/2024 AST 24 11/11/2024 ALKPHOS 207 (H) 11/11/2024 BILITOT 0.2 11/11/2024 Creatine Kinase (CK) Date Value Ref Range Status 11/11/2024 37 24 - 204 U/L Final 11/08/2024 91 24 - 204 U/L Final 11/05/2024 49 24 - 204 U/L Final proBNP, N-terminal Date Value Ref Range Status 11/15/2024 429 (H) <125 pg/mL Final Lab Results Component Value Date SEDRATE 79 (H) 11/02/2024 Lab Results Component Value Date CRP 29.62 (H) 11/02/2024 Blood Cultures: Lab Results Component Value Date CULTURE Sterile after 5 days 11/07/2024 Urine Cultures: No results found for: CRYSUA , HYALNCSTUA , UROBILINOGEN , BILIUA , BLOODUA , CLARITYUA , COLORUA , UACOMMENT , GLUCU , KETONESUA , LEUKOCYTESUA , NITRITEUA , PHUA , PROTEINUA , RBCUA , SPECIMEN , SPECGRAVUA , SQEPIUA , WBCUA OTHER MICROBIOLOGY: C. Difficile: No results found for: CDIFFTOX , NAP1 Imaging Studies XR Foot 1 view-Left Result Date: 11/02/2024 This exam was performed in office at [facility] and images reviewed by orthopedic provider. Any findings are documented within ambulatory encounter note on date of service. Current Medications: Current Facility-Administered Medications Medication Dose Route Frequency Provider Last Rate Last Admin acetaminophen (TYLENOL) tablet 975 mg 975 mg Oral Q6H JUDSON Luis Degroot MD 975 mg at 11/15/24 0506 amiODARONE (PACERONE) tablet 200 mg 200 mg Oral Daily Luis Degroot MD 200 mg at 11/15/24 0850 amLODIPine (NORVASC) tablet 10 mg 10 mg Oral Daily Luis Degroot MD 10 mg at 11/15/24 0851 bisacodyl (DULCOLAX) EC tablet 5 mg 5 mg Oral Daily PRN Luis Degroot MD bisacodyl (DULCOLAX) suppository 10 mg 10 mg Rectal Daily PRN Luis Degroot MD buPROPion (WELLBUTRIN SR) 12 hr tablet 150 mg 150 mg Oral BID Luis Degroot MD 150 mg at 11/15/24 0850 calcium carbonate (TUMS) chewable tablet 1,000 mg 1,000 mg Oral Q12H PRN Luis Degroot MD calcium citrate (CALCITRATE) tablet 950 mg 950 mg Oral BID with meals Luis Degroot MD 950 mg at 11/15/24 0851 chlorhexidine gluconate 2 % wipes - central line CHG application Topical Daily Luis Degroot MD 1 each at 11/12/24 0946 cholecalciferol tablet 2,000 Units 2,000 Units Oral Daily Luis Degroot MD 2,000 Units at 11/15/24 0849 cyanocobalamin (VITAMIN B-12) tablet 2,500 mcg 2,500 mcg Oral Daily Luis Degroot MD 2,500 mcg at 11/15/24 0849 DAPTOmycin (CUBICIN) 975 mg in sodium chloride (NS) 0.9 % 50 mL IVPB 10 mg/kg (Adjusted) Intravenous Q24H Luis Degroot MD Stopped at 11/14/24 1417 donepezil (ARICEPT) tablet 10 mg 10 mg Oral QAM Luis Degroot MD 10 mg at 11/15/24 0850 [Provider Held] empagliflozin (JARDIANCE) 25 mg 25 mg Oral Daily Nani Hollis PA-C 25 mg at 11/04/24 0756 fentaNYL (SUBLIMAZE) 100 mcg/2 mL injection 10 mcg 10 mcg Intravenous Q5 Min PRN Hong Nance MD Or fentaNYL (SUBLIMAZE) 100 mcg/2 mL injection 12.5 mcg 12.5 mcg Intravenous Q5 Min PRN Hong Nance MD Or fentaNYL (SUBLIMAZE) 100 mcg/2 mL injection 25 mcg 25 mcg Intravenous Q5 Min PRN Hong Nance MD folic acid (FOLVITE) tablet 1 mg 1 mg Oral Daily Luis Degroot MD 1 mg at 11/15/24 0851 [Provider Held] glimepiride (AMARYL) tablet 2 mg 2 mg Oral Daily with breakfast Nani Hollis PA-C 2 mg at 11/04/24 0757 heparin (porcine) 5000 unit/mL injection 5,000 Units 5,000 Units Subcutaneous Q8H [facility] Luis Degroot MD 5,000 Units at 11/15/24 0851 HYDROmorphone (DILAUDID) tablet 2 mg 2 mg Oral Q3H PRN Luis Degroot MD 2 mg at 11/11/24 1009 HYDROmorphone (DILAUDID) tablet 4 mg 4 mg Oral Q3H PRN Luis Degroot MD 4 mg at 11/15/24 0852 insulin lispro (HumaLOG/ADMELOG) 100 units/mL injection 1-6 Units 1-6 Units Subcutaneous TID with meals Maddison Villalpando MD 5 Units at 11/15/24 1150 [Provider Held] insulin lispro (HumaLOG/ADMELOG) 100 units/mL injection 3 Units 3 Units Subcutaneous TID with meals Maddison Villalpando MD ipratropium-albuterol (DUONEB) 0.5-2.5 mg/3 mL nebulizer solution 3 mL 3 mL Nebulization Q2H PRN Luis Degroot MD 3 mL at 11/07/24 1025 lactulose (ENULOSE) 10 gm/15 mL solution 20 g 20 g Oral Q4H PRN Luis Degroot MD magnesium hydroxide (MILK OF MAGNESIA) 400 mg/5 mL suspension 30 mL 30 mL Oral Q12H PRN Luis Degroot MD melatonin tablet 3 mg 3 mg Oral Nightly PRN Luis Degroot MD 3 mg at 11/13/24 2152 methocarbamol (ROBAXIN) tablet 1,000 mg 1,000 mg Oral 4x Daily Luis Degroot MD 1,000 mg at metoPROLOL TARTRATE (LOPRESSOR) tablet 50 mg 50 mg Oral BID Luis Degroot MD 50 mg at 11/15/24 0850 mineral oil (FLEET OIL) enema 1 enema 1 enema Rectal Daily PRN Luis Degroot MD multivitamin with minerals tablet 1 tablet 1 tablet Oral Daily Luis Degroot MD 1 tablet at naloxone (NARCAN) 0.4 mg/mL injection 0.4 mg 0.4 mg Intravenous Q5 Min PRN Luis Degroot MD nicotine (NICODERM CQ) 21 MG/24HR patch 1 patch 1 patch Transdermal Daily Luis Degroot MD 1 patch at 11/15/24 0849 ondansetron (ZOFRAN) injection 4 mg 4 mg Intravenous Q6H PRN Luis Degroot MD ondansetron (ZOFRAN) injection 4 mg 4 mg Intravenous Once PRN Hong Nance MD PANTOprazole (PROTONIX) EC tablet 40 mg 40 mg Oral Daily Luis Degroot MD 40 mg at 11/15/24 0851 polyethylene glycol (miraLAx) packet 17 g 17 g Oral Daily PRN Luis Degroot MD [Provider Held] pravastatin (PRAVACHOL) tablet 20 mg 20 mg Oral Daily Nani Hollis PA-C pregabalin (LYRICA) capsule 150 mg 150 mg Oral TID Nani Hollis PA-C 150 mg at 11/15/24 0851 senna-docusate (SENNA-S) 8.6-50 MG tablet 2 tablet 2 tablet Oral BID Luis Degroot MD 2 tablet at 11/15/24 0849 thiamine mononitrate (VITAMIN B-1) tablet 200 mg 200 mg Oral Daily Luis Degroot MD 200 mg at 11/15/24 0847 ALLERGIES: Allergies Allergen Reactions Lisinopril Other (See Comments) Dehydration I reviewed the prescribed Medications and new Laboratory Blood Work. Monitor for drug related adverse events. 50 min spent in reviewing records, labs, imaging, coordination and formulation of plan ofcare I reviewed all new Imaging Studies (actual images) and compared to prior where applicable Of note, some information is being carried forward from prior records for informational purposes only and is being cited so that efficiency, safety and quality of this patient's care is not compromised This report was generated using [employer] dictation software. Although every attempt has been made by the provider to proofread this document, occasional misspellings and typographical errors Sign Chris Taylor MD, [facility] Infectious Diseases Available via [employer] 11/15/2024 1:10 PM * Devon Lazo MD - 11/15/2024 1:00 PM EST Images from the original note were not included. 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 He had a nonhealing left lower extremity ulcer and is now status left BKA. TATIANNA showing small mobile echodensity posterior to MV annulus and adjacent to watchman device- tentative plan for device extraction and Micra implantation next week TBD. Plan He still has evidence of mild volume overload on exam and will consider continuing with IV Bumex atthe dose of 1 mg twice daily. He remains on nasal cannula. His intake and output along with renal function should be monitored closely. He will likely undergo explantation of his permanent pacemaker and lead extraction with Micra implantation this week. Subjective / 24h Events He denies having any acute cardiac issues overnight. He denies any shortness of breath at rest and has had no orthopnea or PND. He denies having any chest pain. Objective Telemetry Reviewed: Sinus rhythm Last Vitals Pulse:62,Resp:18,BP:(!) 105/57,SpO2:99 %,Weight:120 kg (264 lb 8 oz) Temp Last 24 hrs: Temp Min: 97 ??F (36.1 ??C) Max: 97.9 ??F (36.6 ??C) Intake/Output Summary (Last 24 hours) at 11/15/2024 1300 Last data filed at 11/15/2024 0900 Gross per 24 hour Intake 135 ml Output 3575 ml Net -3440 ml Physical Exam Gen : comfortable, alert JVP : 10 cm HEENT: no icterus or pallor, moist oral mucosa Lungs : good inspiratory effort, no crackles, no wheezing CVS : regular rhythm, normal S1 S2, systolic murmur at the apex Abdo : soft, non-distended, non-tender, no organomegaly appreciated Peripheries : warm, normal pulses, no edema Neuro: oriented x3, no focal abnormalities Skin: dry, no cyanosis, no rash Medications Medications Scheduled Medication Ordered Dose/Rate, Route, Frequency Last Action acetaminophen (TYLENOL) tablet 975 mg 975 mg, PO, Q6H JUDSON Given, 975 mg at 11/15 0506 amiODARONE (PACERONE) tablet 200 mg 200 mg, PO, Daily Given, 200 mg at 11/15 0850 amLODIPine (NORVASC) tablet 10 mg 10 mg, PO, Daily Given, 10 mg at 11/15 0751 buPROPion (WELLBUTRIN SR) 12 hr tablet 150 mg 150 mg, PO, BID Given, 150 mg at 11/15 0850 calcium citrate (CALCITRATE) tablet 950 mg 950 mg, PO, BID with meals Given, 950 mg at 11/15 850 chlorhexidine gluconate 2 % wipes - central line CHG application No Dose/Rate, TOP, Daily Given, 1 each at 11/12 09 cholecalciferol tablet 2,000 Units 2,000 Units, PO, Daily Given, 2,000 Units at 11/15 0749 cyanocobalamin (VITAMIN B-12) tablet 2,500 mcg 2,500 mcg, PO, Daily Given, 2,500 mcg at 11/15 0749 DAPTOmycin (CUBICIN) 975 mg in sodium chloride (NS) 0.9 % 50 mL IVPB 10 mg/kg, IV, Q24H Stopped, 11/14 141 donepezil (ARICEPT) tablet 10 mg 10 mg, PO, QAM Given, 10 mg at 11/15 0850 [Provider Held] empagliflozin (JARDIANCE) 25 mg On hold since Fri11/04/2024 at 1503 until manually unheld; held by Juaquin Kern MDHold Reason: Pre-procedure On hold since Fri11/04/2024 at 1503 until manually unheld (Needs Review) Hold reason: Pre-procedure 25 mg, PO, Daily Given, 25 mg at 11/04 0756 folic acid (FOLVITE) tablet 1 mg 1 mg, PO, Daily Given, 1 mg at 11/15 850 [Provider Held] glimepiride (AMARYL) tablet 2 mg On hold since Fri11/04/2024 at 1503 until manually unheld; held by Juaquin Kern MDHold Reason: Pre-procedure On hold since Fri11/04/2024 at 1503 until manually unheld (Needs Review) Hold reason: Pre-procedure 2 mg, PO, Daily with breakfast Given, 2 mg at 11/04 0757 heparin (porcine) 5000 unit/mL injection 5,000 Units Hold starts tomorrow at 2000 until manually unheld Hold reason: Pre-procedure 5,000 Units, SC, Q8H JUDSON Given, 5,000 Units at 11/15 0851 insulin lispro (HumaLOG/ADMELOG) 100 units/mL injection 1-6 Units 1-6 Units, SC, TID with meals Given, 5 Units at 11/15 1150 [Provider Held] insulin lispro (HumaLOG/ADMELOG) 100 units/mL injection 3 Units On hold since Fri11/10/2024 at 0752 until manually unheld; held by Maddison Villalpando MDHold Reason: NPO On hold since Fri11/10/2024 at 0752 until manually unheld Hold reason: NPO 3 Units, SC, TID with meals Ordered methocarbamol (ROBAXIN) tablet 1,000 mg 1,000 mg, PO, 4x Daily Given, 1,000 mg at 11/15 0850 metoPROLOL TARTRATE (LOPRESSOR) tablet 50 mg 50 mg, PO, BID Given, 50 mg at 11/15 0850 multivitamin with minerals tablet 1 tablet 1 tablet, PO, Daily Given, 1 tablet at 11/15 0851 nicotine (NICODERM CQ) 21 MG/24HR patch 1 patch 1 patch, TD, Daily Patch Applied, 1 patch at 11/15 0849 PANTOprazole (PROTONIX) EC tablet 40 mg 40 mg, PO, Daily Given, 40 mg at 11/15 0851 [Provider Held] pravastatin (PRAVACHOL) tablet 20 mg On hold since Fri11/03/2024 at 0850 until manually unheld; held by Ean Mtz MDHold Reason: Other - Comment requiredHold Comments: While on IV daptomycin On hold since Fri11/03/2024 at 0850 until manually unheld (Needs Review) Hold reason: Other - Comment required, Hold comment: While on IV daptomycin 20 mg, PO, Daily Ordered pregabalin (LYRICA) capsule 150 mg 150 mg, PO, TID Given, 150 mg at 11/15 0851 senna-docusate (SENNA-S) 8.6-50 MG tablet 2 tablet 2 tablet, PO, BID Given, 2 tablet at 11/15 0849 thiamine mononitrate (VITAMIN B-1) tablet 200 mg 200 mg, PO, Daily Given, 200 mg at 11/15 0847 PRN Medication Ordered Dose/Rate, Route, Frequency Last Action bisacodyl (DULCOLAX) EC tablet 5 mg 5 mg, PO, Daily PRN Ordered bisacodyl (DULCOLAX) suppository 10 mg 10 mg, RE, Daily PRN Ordered calcium carbonate (TUMS) chewable tablet 1,000 mg 1,000 mg, PO, Q12H PRN Ordered fentaNYL (SUBLIMAZE) 100 mcg/2 mL injection 10 mcg (Or Linked Group #1) 10 mcg, IV, Q5 Min PRN Ordered fentaNYL (SUBLIMAZE) 100 mcg/2 mL injection 12.5 mcg (Or Linked Group #1) 12.5 mcg, IV, Q5 Min PRN Ordered fentaNYL (SUBLIMAZE) 100 mcg/2 mL injection 25 mcg (Or Linked Group #1) 25 mcg, IV, Q5 Min PRN Ordered HYDROmorphone (DILAUDID) tablet 2 mg 2 mg, PO, Q3H PRN Given, 2 mg at 11/11 1009 HYDROmorphone (DILAUDID) tablet 4 mg 4 mg, PO, Q3H PRN Given, 4 mg at 11/15 0852 ipratropium-albuterol (DUONEB) 0.5-2.5 mg/3 mL nebulizer solution 3 mL 3 mL, NEBULIZATION, Q2H PRN Given, 3 mL at 11/07 1025 lactulose (ENULOSE) 10 gm/15 mL solution 20 g 20 g, PO, Q4H PRN Ordered magnesium hydroxide (MILK OF MAGNESIA) 400 mg/5 mL suspension 30 mL 30 mL, PO, Q12H PRN Ordered melatonin tablet 3 mg 3 mg, PO, Nightly PRN Given, 3 mg at 11/13 215 mineral oil (FLEET OIL) enema 1 enema 1 enema, RE, Daily PRN Ordered naloxone (NARCAN) 0.4 mg/mL injection 0.4 mg 0.4 mg, IV, Q5 Min PRN Ordered ondansetron (ZOFRAN) injection 4 mg 4 mg, IV, Once PRN Ordered ondansetron (ZOFRAN) injection 4 mg 4 mg, IV, Q6H PRN Ordered polyethylene glycol (miraLAx) packet 17 g 17 g, PO, Daily PRN Ordered Relevant data reviewed Results from last 7 days Lab Units 11/15/24 1109 11/15/24 0808 11/15/24 0736 11/14/24 1133 11/14/24 1031 11/13/24 0812 11/13/24 0730 11/11/24 0235 11/11/24 0200 SODIUM mmol/L -- 131* -- -- 132* -- 140 < > 137 POTASSIUM mmol/L -- 3.9 -- -- 4.0 -- 3.6 < > 3.8 CHLORIDE mmol/L -- 85* -- -- 85* -- 91* < > 99 CO2 mmol/L -- 34* -- -- 34* -- 35* < > 27 BUN mg/dL -- 59* -- -- 65* -- 44* < > 56* CREATININE mg/dL -- 1.8* -- -- 2.1* -- 1.7* < > 2.0* CALCIUM mg/dL -- 9.4 -- -- 9.4 -- 9.7 < > 8.7 GLUCOSE mg/dL -- 218* -- -- 319* -- 154* < > 151* GLUCOSE, POC mg/dL 305* -- 230* < > -- < > -- < > -- EGFR -- 42* -- -- 35* -- 45* < > 37* ALBUMIN g/dL -- -- -- -- -- -- -- -- 2.6* PROTEIN, TOTAL g/dL -- -- -- -- -- -- -- -- 6.4 BILIRUBIN TOTAL mg/dL -- -- -- -- -- -- -- -- 0.2 ALK PHOS U/L -- -- -- -- -- -- -- -- 207* ALT U/L -- -- -- -- -- -- -- -- 14 AST U/L -- -- -- -- -- -- -- -- 24 < > = values in this interval not displayed. Lab Results Component Value Date MG 2.1 11/15/2024 Results from last 7 days Lab Units 11/15/24 0808 11/14/24 1031 11/13/24 0730 WHITE BLOOD CELL COUNT Thou/uL 11.8* 10.6 11.8* HEMOGLOBIN g/dL 8.9* 8.9* 9.2* HEMATOCRIT % 28.9* 28.9* 29.8* PLATELET COUNT Thou/uL 485* 471* 486* Lab Results Component Value Date HSTNT 26 (H) 11/08/2024 HSTNT 29 (H) 11/07/2024 HSTNT 26 (H) 11/07/2024 Lab Results Component Value Date PROBNP 429 (H) 11/15/2024 Lab Results Component Value Date HGBA1C 8.7 (H) 09/03/2024 Pertinent Cardiac & Imaging Studies Recent Results (from the past 8760 hour(s)) ECG 12 lead Collection Time: 11/07/24 2:58 PM Result Value Status Systolic BP 116 Final Diastolic BP 57 Final Ventricular rate 62 Final Atrial rate 55 Final QRS duration 168 Final Q-T interval 506 Final QTC calculation (Bazett) 513 Final R axis 104 Final T axis -39 Final Narrative Ventricular-paced rhythm Abnormal ECG When compared with ECG of 02-Nov-2024 21:34, Vent. rate has decreased by 8 bpm Confirmed by MD Claude, [facility] ([id number]) on 11/07/2024 6:25:53 PM All additional appropriate imaging studies within the past 24 hours reviewed - images reviewed and independently interpreted. Sign Devon Lazo MD [facility] [place] 11/15/2024 1:00 PM * Elida Berger OT - 11/15/2024 9:41 AM EST Occupational Therapy Progress Note Assessment & Progress Summary: Pt seen for OT f/u session. Pt participated in bed mobility w/ no physical assistance progressing to transfer training w/ Ax1 and RW to hop on RLE to recliner. Pt completed oral care and dressing activities w/ set up assist. Education provided on donning/doffing of nutmegger w/ good carryover and use of teach back method. Patient continues to present below functional baseline. Patient is highly motivated to return to [facility] and reports good family support and DME. Pt is an excellent rehab candidate and will benefit from3 hours of intensive daily therapy with the potential to return home and reintegrate back into the critical access hospital. Progress Towards Goals: progress toward functional goals is good Outcome Measures: The Activity Measure for Post-Acute Care (AM-PAC) Daily Activity Inpatient Short Form (6-clicks) zakiya standardized measure used to quantify deficits in self-care. The total score of the measure ranges from 6-24. A higher score indicates a higher level of independence with self-care tasks. Current AMPAC Daily Activity Score: 17 Precautions/Restrictions: fall, other (see comments), isolation: contact (skin) Rehab Plan of Care Patient will continue to benefit from skilled OT services 2-3x/wk while in house. OT intervention plan to focus on seated and standing ADLs w/ transfer training to decrease need for caregiver assistance and maximize functional independence. Recommend Ax2 w/ RW to transfer to commode for toileting, OOB for meals 3x/day, and active participation in ADLs. -OT Recommendations for Staff: Ax2 w/ RW to transfer to recliner/commode, encourage active participation in ADLs and OOB 3x/day -OT Frequency during Hospitalization: 2-3 times/wk -Progressive Mobility Level: Level 4 -Plan of Care Reviewed With: care plan/treatment goals reviewed, participants included, patient Education: OT role, POC, and recommendations Treatment Interventions/Objective Data Interventions to Optimize ADL Performance Grooming: set up assist to wash face sitting in recliner Min A to clean glasses Set up assist to brush teeth sitting in recliner Dressing: min A to adjust RLE sock sitting EOB w/ use of figure four technique Min A to don/doff flako sitting EOB Min A to adjust nutmegger. Education provided w/ good carryover Toileting: practiced SPT in preparation for commode transfer w/ good carryover. Mod verbal cues forsequencing and proper hand placement for transfers w/ good carryover Transfers and Functional Mobility: mod I supine <> sit. Pt endorsing dizziness w/ mobility though improving w/ time and PLB. Mod Ax1 sit <> stand and to hop on RLE w/ RW to transfer to recliner. Increased time/effort noted for activity w/ mod cueing for sequencing, technique, and pacing Endurance/Activity Tolerance: Excellent for session. Pt on 5L O2 via NC Subjective I enjoy sitting in the chair Flowsheet Data 11/15/24 0941 OT Time and Intention OT Follow-Up Visit follow up treatment Mode of Treatment occupational therapy Patient Effort good Symptoms Noted During/After Treatment dizziness General Information Patient Profile Reviewed yes Patient/Family/Caregiver Comments/Observations I enjoy sitting in the chair General Observations of Patient pt recevied supine in bed, alert, and agreeable to therapy +5L O2 via NC +nutmegger Existing Precautions/Restrictions fall;other (see comments);isolation: contact (skin) Pain Assessment Pretreatment Pain Rating 0/10 - no pain Posttreatment Pain Rating 0/10 - no pain Coping Observed Emotional State cooperative;calm Verbalized Emotional State acceptance Safety Safety WDL WDL All Alarms alarm(s) activated and audible Enhanced Safety Measures chair alarm set Progressive Mobility Progressive Mobility Level Achieved Transferring to Chair [facility] Daily Activity Putting on and taking off Lower Body Clothing? 3 Bathing (including washing/rinsing/drying)? 2 Toileting (includes using toilet, bedpan, or urinal)? 2 Putting on and taking off upper body clothing? 3 Taking care of personal grooming such as brushing teeth? 3 Eating meals? 4 [facility] Daily Activity Score 17 Therapy Assessment/Plan (OT) Rehab Potential (OT) good Criteria for Skilled Therapeutic Interventions Met (OT) yes;skilled treatment is necessary Therapy Frequency (OT) 2-3 times/wk Predicted Duration of Therapy Intervention (OT) LOS Progress Summary (OT) Progress Toward Functional Goals (OT) progress toward functional goals is good Daily Progress Summary (OT) goals ongoing Therapy Plan Review/Discharge Plan (OT) Therapy Plan Review (OT) care plan/treatment goals reviewed;participants included;patient OT Recommendations for Staff Ax2 w/ RW to transfer to recliner/commode, encourage active participation in ADLs and OOB 3x/day Transfer Goal 1 (OT) Progress/Outcome (Transfer Goal 1, OT) good progress toward goal Bathing Goal 1 (OT) Progress/Outcomes (Bathing Goal 1, OT) good progress toward goal Dressing Goal 1 (OT) Progress/Outcome (Dressing Goal 1, OT) good progress toward goal Toileting Goal 1 (OT) Progress/Outcome (Toileting Goal 1, OT) good progress toward goal Sign: Elida Berger OT * Olimpia Lainez PharmD - 11/15/2024 9:38 AM EST Patient: Blas Genao Date: 11/15/24 Pain Management - Follow-Up Assessment: Blas Genao is a 63 year old male admitted with Enterococcus faecalis and MRSA bacteremia, s/p L BKA POD#10. Pt is now s/p TATIANNA on 11/11 which revealed a small mobile echodensity posterior to the mitral valve annulus, adjacent to the watchman device. Tentative plan for device extractionand Micra implantation next week. Patient was asleep upon entering room and was woken up and became alert. He was dozing on and off during out conversation and stated that he has not been sleeping well throughout the night due to being woken up. He states that he has continued pain at his amputation site, rating it a 7/10. He has relief from the Dilaudid which brings his pain down to a 5/10. He did mention that he has been able to go longer before needing a next dose of prn Dilaudid and believes his pain has been improving. In the past 24h, he received 1 dose of Dilaudid 4 mg PO and went 15h between doses. His pain worsens when changing his compression stocking or when working with PT. He does mention he has been having hand jerking/tremors in both of his hands and is bothersome. His BP is normotensive. His Scr is trending downwards at 1.8 and LFTs are stable. Current Pain Medications Tylenol 975 mg PO Q6h Robaxin 1000 mg PO 4x/day Lyrica 150 mg PO TID Dilaudid 2 mg PO Q3h prn pain 4-6; x0 in 24h Dilaudid 4 mg PO Q3h prn pain 7-10; x1 in 24h Plan: Continue Tylenol 975 mg PO Q6h Continue Robaxin 1000 mg PO 4x/day Continue Lyrica 150 mg PO TID His tremors may be affected by Lyrica dosing but would weigh risk vs benefit of decreasing Lyrica dose as it has been helping with neuropathic pain. His renal function is improving. If patient has signs of sedation or worsening tremors, consider reducing the Lyrica dosing 150 mg PO BID. Continue Diaudid 2-4 mg PO Q3h prn pain Pharmacy pain management will sign off. Olimpia Lainez, FanyD * Maddison Villalpando MD - 11/14/2024 2:48 PM EST [facility] PROGRESS NOTE Assessment & Plan Brief Summary: This is a 63-year-old male with past medical history of a flutter/A-fib s/p Watchman procedure, AV block s/p PPM, chronic diastolic heart failure, hypertension, hyperlipidemia, MERVIN on CPAP, CKD stageIII, PAD/PVD who presented as direct admit with plans for left 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 s/p calcaneal ostectomy on 08/2024 with wound VAC placement and underwent left BKA on 11/05. Left foot wound grew MRSA, Enterococcus faecalis, VRE, chronic bacterium species and gram-negative bacilli. Hospital course further complicated with MRSA and VRE/Enterococcus faecalis/VCM bacteremia and cardiology was consulted. 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 He developed acute hypoxic respiratory failure secondary to CHF exacerbation and transferred to medical stepdown unit forfurther management and was aggressively diuresed with Bumex drip and weaned down on supplemental oxy gen. 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 Patient was on initially on ceftaroline and daptomycin later switched on 11/12 to daptomycin. TATIANNA on 11/12- with possible small mobile vegetation in the mitral valve, per cardiology, pt will need follow up TATIANNA in [address] off on CT surgery consult at this time. MRI brain shows no evidence of septic emboli. Holding Jardiance given infection. Per EP cardiology, patient will need extraction of the pacemaker, planning for next week and since the patient is pacemaker dependent, will also need pacemaker insertion, timing to be decided. -Acute hypoxic respiratory failure secondary to volume overload -Acute HFmrEF Patient is on oxygen by nasal cannula at 5 LPM We decrease the Bumex drip to 1 Mg per hour yesterday. BNP has been improving, patient is approaching euvolemia and we have noticed creatinine bump to 2.1 today. Will hold off on further diuresis today and reevaluate volume status and need for further diuresis tomorrow. Monitor and replete electrolytes to keep K greater than 4 and Mg greater than 2. GDMT: Remains on metoprolol tartarate 50 BID. Jardiance held d/t infection. ARB initiation after improvement of TABITHA. A-fib/A-flutter s/p Watchman procedure AVB s/p PPM Cardiology following. Appreciate input Continue with amiodarone 200 mg daily and Lopressor 50 mg twice daily for rate control. Pacemaker removal plan as mentioned above. Monitor on telemetry TABITHA on CKD stage III Baseline creatinine of 1.0-1.3. Currently creatinine improved to 1.7 TABITHA likely in the setting of cardiorenal syndrome Bumex drip stopped. Acute normocytic anemia H&H remained stable Comorbid conditions: -GERD: continue with protonix -History of MERVIN on CPAP -Type 2 diabetes: Hemoglobin A1c of 8.7 on 08/2024. Currently on sliding scale insulin. Fingersticks checks 3 times daily AC. On hypoglycemia protocol. -History of alcohol use disorder: Continue with folic acid, thiamine and multivitamin. -Depression: Continue Wellbutrin. Scheduled Meds: acetaminophen, 975 mg, Oral, Q6H JUDSON amiODARONE, 200 mg, Oral, Daily amLODIPine, 10 mg, Oral, Daily buPROPion, 150 mg, Oral, BID calcium citrate, 950 mg, Oral, BID with meals chlorhexidine gluconate, , Topical, Daily cholecalciferol, 2,000 Units, Oral, Daily cyanocobalamin, 2,500 mcg, Oral, Daily DAPTOmycin, 10 mg/kg (Adjusted), Intravenous, Q24H donepezil, 10 mg, Oral, QAM [Provider Held] empagliflozin, 25 mg, Oral, Daily folic acid, 1 mg, Oral, Daily [Provider Held] glimepiride, 2 mg, Oral, Daily with breakfast heparin (porcine), 5,000 Units, Subcutaneous, Q8H [facility] insulin lispro, 1-5 Units, Subcutaneous, TID with meals [Provider Held] insulin lispro, 5 Units, Subcutaneous, TID with meals methocarbamol, 1,000 mg, Oral, 4x Daily metoPROLOL TARTRATE, 50 mg, Oral, BID multivitamin with minerals, 1 tablet, Oral, Daily nicotine, 1 patch, Transdermal, Daily PANTOprazole, 40 mg, Oral, Daily [Provider Held] pravastatin, 20 mg, Oral, Daily pregabalin, 150 mg, Oral, TID senna-docusate, 2 tablet, Oral, BID thiamine, 200 mg, Oral, Daily Continuous Infusions: PRN Meds: bisacodyl bisacodyl calcium carbonate fentaNYL OR fentaNYL OR fentaNYL HYDROmorphone HYDROmorphone ipratropium-albuterol lactulose magnesium hydroxide melatonin mineral oil naloxone ondansetron ondansetron polyethylene glycol Discharge Barriers: Clinical status Quality Metrics DVT PROPHYLAXIS Risk Assessment Scores and Dates: VTE Time Out Orthopedics & NeuroSurgery VTE risk stratification: Standard or low risk (11/05/2024 12:44 PM)VTErisk low and NOT reassessed in last 5 days - Click here to document Chemical Prophylaxis heparin (porcine) 5000 unit/mL injection 5,000 Units Subcutaneous Every 8 hours scheduled Heparin Sodium (Porcine) 5000 Units Last dose 11/14/2024 8:13 AM Mechanical Prophylaxis SCDs are ordered - RIGHT (Knee High) Patient declined SCD use, Please review Antibiotic Stewardship Treatment Indication: Bacteremia, endocarditis Expected Date of Discharge 11/19/2024 Subjective Chief complaint No chief complaint on file. Patient is being seen for acute medical problems and follow-up for chronic medical issues as mentioned in the assessment and plan above. Subjective Pt states his breathing is fine and denies shortness of breath. Does not have any chest pain, dizziness or lightheadedness. No fever or chills. Objective Vitals: 11/12/24 2114 11/13/24 0400 11/13/24 0820 11/13/24 1458 BP: 132/60 112/59 116/60 (!) 117/57 Pulse: 61 61 63 61 Resp: 16 18 Temp: 96.6 ??F (35.9 ??C) (!) 95.7 ??F (35.4 ??C) 97 ??F (36.1 ??C) SpO2: 96% 97% 96% 92% 11/13/24 1800 11/14/24 0557 11/14/24 0809 11/14/24 1228 BP: (!) 121/56 106/59 116/59 Pulse: 61 61 74 Resp: 18 18 18 Temp: 96.9 ??F (36.1 ??C) 96.9 ??F (36.1 ??C) 97.2 ??F (36.2 ??C) SpO2: 98% 98% 98% 97% Physical Exam General: No Acute Distress, on oxygen by nasal canula Sclerae anicteric, Conjunctivae pink, Mucous membranes moist Lungs: Clear to auscultation CVS: Regular rhythm, Normal S1, Normal S2 Abdomen: Normal bowel sounds, Soft, Non-tender. Extremities: No edema. Neurological: Alert, Oriented X3, Normal speech, symmetrical face, No focal sensory or motor deficits. Relevant data reviewed Results from last 7 days Lab Units 11/14/24 1031 WHITE BLOOD CELL COUNT Thou/uL 10.6 HEMOGLOBIN g/dL 8.9* HEMATOCRIT % 28.9* PLATELET COUNT Thou/uL 471* Results from last 7 days Lab Units 11/14/24 1133 11/14/24 1031 SODIUM mmol/L -- 132* POTASSIUM mmol/L -- 4.0 CHLORIDE mmol/L -- 85* CO2 mmol/L -- 34* BUN mg/dL -- 65* CREATININE mg/dL -- 2.1* EGFR -- 35* GLUCOSE mg/dL -- 319* GLUCOSE, POC mg/dL 274* -- CALCIUM mg/dL -- 9.4 Sign Maddison Villalpando MD 11/14/2024 2:48 PM * Maddison Villalpando MD - 11/13/2024 3:26 PM EST [facility] MEDICINE PROGRESS NOTE Assessment & Plan Brief Summary: This is a 63-year-old male with past medical history of a flutter/A-fib s/p Watchman procedure, AV block s/p PPM, chronic diastolic heart failure, hypertension, hyperlipidemia, MERVIN on CPAP, CKD stageIII, PAD/PVD who presented as direct admit with plans for left 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 s/p calcaneal ostectomy on 08/2024 with wound VAC placement and underwent left BKA on 11/05. Left foot wound grew MRSA, Enterococcus faecalis, VRE, chronic bacterium species and gram-negative bacilli. Hospital course further complicated with MRSA and VRE/Enterococcus faecalis/VCM bacteremia and cardiology was consulted. 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 He developed acute hypoxic respiratory failure secondary to CHF exacerbation and transferred to medical stepdown unit forfurther management and was aggressively diuresed with Bumex drip and wean down on supplemental oxygen. 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 Patient was on initially on ceftaroline and daptomycin later switched on 11/12 to daptomycin. TATIANNA on 11/12- with possible small mobile vegetation in the mitral valve, per cardiology, pt will need follow up TATIANNA in [address] off on CT surgery consult at this time. MRI brain to evaluate for septic emboli, reading awaited. Holding Jardiance given infection. Per EP cardiology, patient will need extraction of the pacemaker, planning for next week and since the patient is pacemaker dependent, will also need pacemaker insertion, timing to be decided. -Acute hypoxic respiratory failure secondary to volume overload -Acute HFmrEF Patient is on oxygen by nasal cannula at 5 LPM Currently on Bumex drip which was increased to 2 Mg per hour yesterday. He also got 1 dose of metolazone yesterday. BNP improving, slight Cr bump. Decrease Bumex drip to 1 mg/h. Patient states he has been having good urine output, unsure if the measurements in the last 24 hours are accurate, nurse made aware about I/O. Strict intake and output and daily weights Monitor and replete electrolytes to keep K greater than 4 and Mg greater than 2. GDMT: Remains on metoprolol tartarate 50 BID. Jardiance held d/t infection. ARB initiation after improvement of TABITHA. A-fib/A-flutter s/p Watchman procedure AVB s/p PPM Cardiology following. Appreciate input Continue with amiodarone 200 mg daily and Lopressor 50 mg twice daily for rate control. Pacemaker removal plan as mentioned above. Monitor on telemetry TABITHA on CKD stage III: Baseline creatinine of 1.0-1.3. Currently creatinine improved to 1.7 TABITHA likely in the setting of cardiorenal syndrome Continue diuresis with Bumex drip Acute normocytic anemia H&H remained stable Comorbid conditions: -GERD: continue with protonix -History of MERVIN on CPAP -Type 2 diabetes: Hemoglobin A1c of 8.7 on 08/2024. Currently on sliding scale insulin. Fingersticks checks 3 times daily AC. On hypoglycemia protocol. -History of alcohol use disorder: Continue with folic acid, thiamine and multivitamin. -Depression: Continue Wellbutrin. Scheduled Meds: acetaminophen, 975 mg, Oral, Q6H JUDSON amiODARONE, 200 mg, Oral, Daily amLODIPine, 10 mg, Oral, Daily buPROPion, 150 mg, Oral, BID calcium citrate, 950 mg, Oral, BID with meals chlorhexidine gluconate, , Topical, Daily cholecalciferol, 2,000 Units, Oral, Daily cyanocobalamin, 2,500 mcg, Oral, Daily DAPTOmycin, 10 mg/kg (Adjusted), Intravenous, Q24H donepezil, 10 mg, Oral, QAM [Provider Held] empagliflozin, 25 mg, Oral, Daily folic acid, 1 mg, Oral, Daily [Provider Held] glimepiride, 2 mg, Oral, Daily with breakfast heparin (porcine), 5,000 Units, Subcutaneous, Q8H JUDSON [Provider Held] insulin lispro, 1-11 Units, Subcutaneous, TID with meals [Provider Held] insulin lispro, 1-4 Units, Subcutaneous, NIGHTLY & 2AM insulin lispro, 1-6 Units, Subcutaneous, Q4H JUDSON [Provider Held] insulin lispro, 5 Units, Subcutaneous, TID with meals [Provider Held] metFORMIN, 500 mg, Oral, Daily with breakfast methocarbamol, 1,000 mg, Oral, 4x Daily metoPROLOL TARTRATE, 50 mg, Oral, BID multivitamin with minerals, 1 tablet, Oral, Daily nicotine, 1 patch, Transdermal, Daily PANTOprazole, 40 mg, Oral, Daily [Provider Held] pravastatin, 20 mg, Oral, Daily pregabalin, 150 mg, Oral, TID senna-docusate, 2 tablet, Oral, BID thiamine, 200 mg, Oral, Daily Continuous Infusions: bumetanide, 1 mg/hr, Last Rate: 1 mg/hr (11/13/24 1401) PRN Meds: bisacodyl bisacodyl calcium carbonate glucose OR glucose OR dextrose OR dextrose OR glucagon fentaNYL OR fentaNYL OR fentaNYL HYDROmorphone HYDROmorphone ipratropium-albuterol lactulose magnesium hydroxide melatonin mineral oil naloxone ondansetron ondansetron polyethylene glycol Discharge Barriers: Clinical status Quality Metrics DVT PROPHYLAXIS Risk Assessment Scores and Dates: VTE Time Out Orthopedics & NeuroSurgery VTE risk stratification: Standard or low risk (11/05/2024 12:44 PM)VTErisk low and NOT reassessed in last 5 days - Click here to document Chemical Prophylaxis heparin (porcine) 5000 unit/mL injection 5,000 Units Subcutaneous Every 8 hours scheduled Heparin Sodium (Porcine) 5000 Units Last dose 11/13/2024 8:26 AM Mechanical Prophylaxis SCDs are ordered - RIGHT (Knee High) Antibiotic Stewardship Treatment Indication: Bacteremia, endocarditis Expected Date of Discharge 11/17/2024 Subjective Chief complaint No chief complaint on file. Patient is being seen for acute medical problems and follow-up for chronic medical issues as mentioned in the assessment and plan above. Subjective Pt is endorsing a nasal cannula. He states his breathing is fine and denies shortness of breath. Does not have any chest pain, dizziness or lightheadedness. No fever or chills. Objective Vitals: 11/12/24 1420 11/12/24 1750 11/12/24 2035 11/12/242049 BP: (!) 110/53 130/62 130/60 Pulse: 61 64 61 62 Resp: 16 Temp: 98.1 ??F (36.7 ??C) SpO2: 94% 95% 11/12/24 2114 11/13/24 0400 11/13/24 0820 11/13/24 1458 BP: 132/60 112/59 116/60 (!) 117/57 Pulse: 61 61 63 61 Resp: 16 18 18 18 Temp: 96.6 ??F (35.9 ??C) (!) 95.7 ??F (35.4 ??C) 97 ??F (36.1 ??C) SpO2: 96% 97% 96% 92% Physical Exam General: No Acute Distress Sclerae anicteric, Conjunctivae pink, Mucous membranes moist Lungs: Clear to auscultation CVS: Regular rhythm, Normal S1, Normal S2 Abdomen: Normal bowel sounds, Soft, Non-tender. Extremities: No edema. Neurological: Alert, Oriented X3, Normal speech, symmetrical face, No focal sensory or motor deficits. Relevant data reviewed Results from last 7 days Lab Units 11/13/24 0730 WHITE BLOOD CELL COUNT Thou/uL 11.8* HEMOGLOBIN g/dL 9.2* HEMATOCRIT % 29.8* PLATELET COUNT Thou/uL 486* Results from last 7 days Lab Units 11/13/24 1154 11/13/24 0812 11/13/24 0730 SODIUM mmol/L -- -- 140 POTASSIUM mmol/L -- -- 3.6 CHLORIDE mmol/L -- -- 91* CO2 mmol/L -- -- 35* BUN mg/dL -- -- 44* CREATININE mg/dL -- -- 1.7* EGFR -- -- 45* GLUCOSE mg/dL -- -- 154* GLUCOSE, POC mg/dL 232* < > -- CALCIUM mg/dL -- -- 9.7 < > = values in this interval not displayed. Sign Maddison Villalpando MD 11/13/2024 3:26 PM * Valencia Lau APRN - 11/13/2024 11:03 AM EST Images from the original note were not included. 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 He had a nonhealing left lower extremity ulcer and is now status left BKA. TATIANNA showing small mobile echodensity posterior to MV annulus and adjacent to watchman device- tentative plan for device extraction and Micra implantation next week TBD. Acute CHFmrEF LVEf 43% -Bumex drip increased overnight to 2 mg/hr-diuresing well/reports significant improvement in abdominal distention -Remains on 5 L nasal cannula, RA at baseline - plan to wean with further diuresis -BNP improving from [id number] today -Closely monitor renal function and electrolytes with diuresis, maintain K greater than 4 and mag greater than 2 -Strict daily weights and I's and O's -GDMT: jardiance on hold due to procedures and renal dysfunction- would resume when able, beta leeroy as below, will add ARB and aldactone as renal function continues to improve Concern for mitral valve endocarditis: -TATIANNA (11/12) showing small mobile echodensity posterior to MV annulus and adjacent to watchman device - hold off on CT surg consult for now - will need follow up TATIANNA in 1 week -continue IV antibiotics per ID - Brain MRI yesterday without acute intracranial findings or suspicious intracranial lesions, no evidence of septic emboli - Continue telemetry monitoring Afib, Complete heart block, s/p dual chamber pacemaker -pacemaker dependent, appreciated Dr. 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 Underlying rhythm: SB @ 58. Atrial pacing 71.2%, ventricular pacing 89%. Battery and lead parameters evaluated and within normal limits. Normal pacemaker function. -Continue amiodarone 200 mg daily, Lopressor 50 mg BID for rate control Discussed with Dr. Meza Subjective / Events of past 24 hours: Feeling much better today with increased diuresis, reports significant improvement in abdominal distention and breathing. Denies chest pain, dizziness, palpitations, syncope Objective: Telemetry Reviewed: [employer] MECH[employer]IC 60 Last Vitals Pulse:63,Resp:18,BP:116/60,SpO2:96 %,Weight:120 kg (264 lb 8 oz) Temp Last 24 hrs: Temp Min: 95.7 ??F (35.4 ??C) Max: 98.1 ??F (36.7 ??C) Intake/Output Summary (Last 24 hours) at 11/13/2024 1103 Last data filed at 11/12/2024 2114 Gross per 24 hour Intake 8 ml Output 970 ml Net -962 ml Physical Exam GENERAL: No acute distress. HEENT: Anicteric. No pallor. Moist oral membranes. NECK: Supple. No carotid bruits. JVP difficult to assess CHEST: Nontender. Clear to auscultation bilaterally, no wheeze or crackles. CARDIAC: Normal rate and regular rhythm. No murmurs ABDOMEN: Soft. Nontender. Normal bowel sounds. EXTREMITIES: Warm. Well-perfused. No edema. L BKA VASCULAR: + distal pulses SKIN: Warm and dry. No rashes. NEUROLOGIC: Alert. Grossly nonfocal. Medications Medications Scheduled Medication Ordered Dose/Rate, Route, Frequency Last Action acetaminophen (TYLENOL) tablet 975 mg 975 mg, PO, Q6H JUDSON Given, 975 mg at 11/13 003 amiODARONE (PACERONE) tablet 200 mg 200 mg, PO, Daily Given, 200 mg at 11/13 826 amLODIPine (NORVASC) tablet 10 mg 10 mg, PO, Daily Given, 10 mg at 11/13 826 buPROPion (WELLBUTRIN SR) 12 hr tablet 150 mg 150 mg, PO, BID Given, 150 mg at 11/13 827 calcium citrate (CALCITRATE) tablet 950 mg 950 mg, PO, BID with meals Given, 950 mg at 11/13 826 chlorhexidine gluconate 2 % wipes - central line CHG application No Dose/Rate, TOP, Daily Given, 1 each at 11/12 945 cholecalciferol tablet 2,000 Units 2,000 Units, PO, Daily Given, 2,000 Units at 11/13 827 cyanocobalamin (VITAMIN B-12) tablet 2,500 mcg 2,500 mcg, PO, Daily Given, 2,500 mcg at 11/13 826 DAPTOmycin (CUBICIN) 975 mg in sodium chloride (NS) 0.9 % 50 mL IVPB 10 mg/kg, IV, Q24H Stopped, 11/12 152 donepezil (ARICEPT) tablet 10 mg 10 mg, PO, QAM Given, 10 mg at 11/13 826 [Provider Held] empagliflozin (JARDIANCE) 25 mg On hold since Fri11/04/2024 at 1503 until manually unheld; held by Gayle Rey Reason: Pre-procedure On hold since Fri11/04/2024 at 1503 until manually unheld (Needs Review) Hold reason: Pre-procedure 25 mg, PO, Daily Given, 25 mg at 11/04 0756 folic acid (FOLVITE) tablet 1 mg 1 mg, PO, Daily Given, 1 mg at 11/13 826 [Provider Held] glimepiride (AMARYL) tablet 2 mg On hold since Lennie 11/04/2024 at 1503 until manually unheld; held by Gayle Rey Reason: Pre-procedure On hold since Fri11/04/2024 at 1503 until manually unheld (Needs Review) Hold reason: Pre-procedure 2 mg, PO, Daily with breakfast Given, 2 mg at 11/04 0757 heparin (porcine) 5000 unit/mL injection 5,000 Units 5,000 Units, SC, Q8H JUDSON Given, 5,000 Units at 11/13 0826 [Provider Held] insulin lispro (HumaLOG/ADMELOG) 100 units/mL injection 1-11 Units On hold since Fri11/11/2024 at 1034 until manually unheld; held by Prerna Crews Reason: NPO On hold since Fri11/11/2024 at 1034 until manually unheld (Needs Review) Hold reason: NPO 1-11 Units, SC, TID with meals Given, 4 Units at 11/11 0830 [Provider Held] insulin lispro (HumaLOG/ADMELOG) 100 units/mL injection 1-4 Units On hold since Fri11/11/2024 at 1034 until manually unheld; held by Prerna Crews Reason: NPO On hold since Fri11/11/2024 at 1034 until manually unheld (Needs Review) Hold reason: NPO 1-4 Units, SC, NIGHTLY & 2AM Given, 1 Units at 11/10 2038 insulin lispro (HumaLOG/ADMELOG) 100 units/mL injection 1-6 Units 1-6 Units, SC, Q4H JUDSON Given, 1 Units at 11/13 0825 [Provider Held] insulin lispro (HumaLOG/ADMELOG) 100 units/mL injection 5 Units On hold since Fri11/10/2024 at 0752 until manually unheld; held by Ry Mas Reason: NPO On hold since Fri11/10/2024 at 0752 until manually unheld (Needs Review) Hold reason: NPO 5 Units, SC, TID with meals Given, 5 Units at 11/09 1313 magnesium sulfate IVPB 2 g in 50 mL SW PREMIX 2 g, IV, Once Ordered [Provider Held] metFORMIN (GLUCOPHAGE) tablet 500 mg On hold since Lennie 11/04/2024 at 1503 until manually unheld; held by Juaquin Kern MDHold Reason: Pre-procedure On hold since Fri11/04/2024 at 1503 until manually unheld (Needs Review) Hold reason: Pre-procedure 500 mg, PO, Daily with breakfast Given, 500 mg at 11/04 0756 methocarbamol (ROBAXIN) tablet 1,000 mg 1,000 mg, PO, 4x Daily Given, 1,000 mg at 11/13 827 metoPROLOL TARTRATE (LOPRESSOR) tablet 50 mg 50 mg, PO, BID Given, 50 mg at 11/13 826 multivitamin with minerals tablet 1 tablet 1 tablet, PO, Daily Given, 1 tablet at 11/13 827 nicotine (NICODERM CQ) 21 MG/24HR patch 1 patch 1 patch, TD, Daily Patch Applied, 1 patch at 11/13 838 PANTOprazole (PROTONIX) EC tablet 40 mg 40 mg, PO, Daily Given, 40 mg at 11/13 827 potassium chloride (KLOR-CON M20) CR tablet 40 mEq 40 mEq, PO, Once Ordered [Provider Held] pravastatin (PRAVACHOL) tablet 20 mg On hold since Fri11/03/2024 at 0850 until manually unheld; held by Ena Mtz MDHold Reason: Other - Comment requiredHold Comments: While on IV daptomycin On hold since Fri11/03/2024 at 0850 until manually unheld (Needs Review) Hold reason: Other - Comment required, Hold comment: While on IV daptomycin 20 mg, PO, Daily Ordered pregabalin (LYRICA) capsule 150 mg 150 mg, PO, TID Given, 150 mg at 11/13 828 senna-docusate (SENNA-S) 8.6-50 MG tablet 2 tablet 2 tablet, PO, BID Given, 2 tablet at 11/13 827 thiamine mononitrate (VITAMIN B-1) tablet 200 mg 200 mg, PO, Daily Given, 200 mg at 11/13 826 Continuous Medication Ordered Dose/Rate, Route, Frequency Last Action bumetanide (BUMEX) IV infusion 25 mg in 100 mL 2 mg/hr, IV, Continuous New Bag, 2 mg/hr at 11/13 0150 PRN Medication Ordered Dose/Rate, Route, Frequency Last Action bisacodyl (DULCOLAX) EC tablet 5 mg 5 mg, PO, Daily PRN Ordered bisacodyl (DULCOLAX) suppository 10 mg 10 mg, RE, Daily PRN Ordered calcium carbonate (TUMS) chewable tablet 1,000 mg 1,000 mg, PO, Q12H PRN Ordered dextrose 50 % solution 12.5 g (Or Linked Group #1) 12.5 g, IV, Q15 Min PRN Ordered dextrose 50 % solution 25 g (Or Linked Group #1) 25 g, IV, Q15 Min PRN Ordered fentaNYL (SUBLIMAZE) 100 mcg/2 mL injection 10 mcg (Or Linked Group #2) 10 mcg, IV, Q5 Min PRN Ordered fentaNYL (SUBLIMAZE) 100 mcg/2 mL injection 12.5 mcg (Or Linked Group #2) 12.5 mcg, IV, Q5 Min PRN Ordered fentaNYL (SUBLIMAZE) 100 mcg/2 mL injection 25 mcg (Or Linked Group #2) 25 mcg, IV, Q5 Min PRN Ordered glucagon (GLUCAGEN) injection 1 mg (Or Linked Group #1) 1 mg, IM, Daily PRN Ordered glucose (GLUTOSE 15) 40 % oral gel 37.5 g (Or Linked Group #1) 1 Tube, PO, Q15 Min PRN Ordered glucose (GLUTOSE 15) 40 % oral gel 75 g (Or Linked Group #1) 2 Tube, PO, Q15 Min PRN Ordered HYDROmorphone (DILAUDID) tablet 2 mg 2 mg, PO, Q3H PRN Given, 2 mg at 11/11 1009 HYDROmorphone (DILAUDID) tablet 4 mg 4 mg, PO, Q3H PRN Given, 4 mg at 11/13 0829 ipratropium-albuterol (DUONEB) 0.5-2.5 mg/3 mL nebulizer solution 3 mL 3 mL, NEBULIZATION, Q2H PRN Given, 3 mL at 11/07 1025 lactulose (ENULOSE) 10 gm/15 mL solution 20 g 20 g, PO, Q4H PRN Ordered magnesium hydroxide (MILK OF MAGNESIA) 400 mg/5 mL suspension 30 mL 30 mL, PO, Q12H PRN Ordered melatonin tablet 3 mg 3 mg, PO, Nightly PRN Given, 3 mg at 11/08 2202 mineral oil (FLEET OIL) enema 1 enema 1 enema, RE, Daily PRN Ordered naloxone (NARCAN) 0.4 mg/mL injection 0.4 mg 0.4 mg, IV, Q5 Min PRN Ordered ondansetron (ZOFRAN) injection 4 mg 4 mg, IV, Once PRN Ordered ondansetron (ZOFRAN) injection 4 mg 4 mg, IV, Q6H PRN Ordered polyethylene glycol (miraLAx) packet 17 g 17 g, PO, Daily PRN Ordered Relevant data reviewed Results from last 7 days Lab Units 11/13/24 0812 11/13/24 0730 11/13/24 0359 11/12/24 0801 11/12/24 0500 11/11/24 1706 11/11/24 1400 11/11/24 0235 11/11/24 0200 11/08/24 0203 11/08/24 0005 11/07/24 1229 11/07/24 0813 SODIUM mmol/L -- 140 -- -- 138 -- 139 -- 137 < > 133* < > 129* POTASSIUM mmol/L -- 3.6 -- -- 3.7 -- 3.4 -- 3.8 < > 3.8 < > 3.9 CHLORIDE mmol/L -- 91* -- -- 96* -- 97* -- 99 < > 98 < > 94* CO2 mmol/L -- 35* -- -- 30 -- 30 -- 27 < > 21* < > 22 CO2, TOTAL -- -- -- -- -- -- -- -- -- -- -- < > -- BUN mg/dL -- 44* -- -- 44* -- 49* -- 56* < > 48* < > 47* CREATININE mg/dL -- 1.7* -- -- 1.6* -- 1.7* -- 2.0* < > 1.6* < > 1.5* CALCIUM mg/dL -- 9.7 -- -- 9.1 -- 9.0 -- 8.7 < > 7.9* < > 8.3* GLUCOSE mg/dL -- 154* -- -- 126* -- 124* -- 151* < > 231* < > 188* GLUCOSE, POC mg/dL 159* -- 156* < > -- < > -- < > -- < > -- < > -- EGFR -- 45* -- -- 48* -- 45* -- 37* < > 48* < > 52* ALBUMIN g/dL -- -- -- -- -- -- -- -- 2.6* -- 2.3* -- 2.6* PROTEIN, TOTAL g/dL -- -- -- -- -- -- -- -- 6.4 -- 5.5* -- 6.1* BILIRUBIN TOTAL mg/dL -- -- -- -- -- -- -- -- 0.2 -- <0.2* -- 0.2 ALK PHOS U/L -- -- -- -- -- -- -- -- 207* -- 226* -- 220* ALT U/L -- -- -- -- -- -- -- -- 14 -- 24 -- 29 AST U/L -- -- -- -- -- -- -- -- 24 -- 24 -- 28 < > = values in this interval not displayed. Lab Results Component Value Date MG 1.7 11/13/2024 Results from last 7 days Lab Units 11/13/24 0730 11/12/24 0500 11/11/24 0200 WHITE BLOOD CELL COUNT Thou/uL 11.8* 11.1* 13.2* HEMOGLOBIN g/dL 9.2* 8.1* 8.2* HEMATOCRIT % 29.8* 26.3* 26.1* PLATELET COUNT Thou/uL 486* 456* 460* Lab Results Component Value Date HSTNT 26 (H) 11/08/2024 HSTNT 29 (H) 11/07/2024 HSTNT 26 (H) 11/07/2024 Lab Results Component Value Date PROBNP 2,964 (H) 11/11/2024 Lab Results Component Value Date HGBA1C 8.7 (H) 09/03/2024 Imaging Studies All appropriate imaging studies within the past 24 hours reviewed (actual images) TATIANNA 11/11/24 There is a small mobile echodensity posterior to the mitral valve annulus, adjacent to the watchmandevice (clip 62, 64). This could be a possible vegetation versus benign fibrous strand however in the setting of bacteremia vegetation cannot be excluded. Left ventricular systolic function is mildly decreased with an estimated ejection fraction of 40-44%. Right ventricular systolic function is mildly reduced. There is a patent foramen ovale with predominant left to right shunting indicated by color Doppler. There is mild apical tethering of the mitral valve leaflets.The mitral leaflets are mildly thickened. There is moderate functional mitral regurgitation with a centrally directed jet. There is no mitral valve stenosis. The tricuspid valve annulus is mildly dilated. There is moderate to severe tricuspid regurgitation. Compared to previous study on 11/04/2024, Device, pacemaker wire and valvular structures are better visualized. A small focal echodensity is seen posterior to mitral valve annulus andadjacent to watchman device. Echo 11/04/2024: The left ventricle is mildly dilated. Left ventricular systolic function is mildly decreased. The quantitative EF is 43% by 3D imaging, and 46% by 2D Martinez biplane. The right ventricle is dilated. Right ventricular systolic function is normal. A pacer wire is present in the right ventricle. Right atrial cavity is severely dilated. A pacemaker wire is present in the right atrium. The mitral leaflets are moderately thickened. There is moderate to severe mitral regurgitation. Cannot rule out vegetation on the mitral valve leaflets. There is moderate tricuspid regurgitation. The estimated right ventricular systolic pressure is 44 mmHg. There is mild aortic regurgitation. The pulmonic valve was not well visualized. Compared to previous outside study report from [facility] on 08/05/2024, Mitral and tricuspid regurgitation were not previously reported. Recommend transesophageal echocardiogram if clinically indicated. Brain MRI 11/12/2024 No acute intracranial findings or suspicious intracranial lesions. No septic emboli. Of note, some information is being carried forward from prior records for informational purposes only and is being cited so that efficiency, safety and quality of this patient's care is not compromised. Signed Valencia Lau APRN 11/13/2024 11:03 AM * Maddison Villalpando MD - 11/12/2024 4:39 PM EST [facility] MEDICINE PROGRESS NOTE Assessment & Plan Brief Summary: This is a 63-year-old male with past medical history of a flutter/A-fib s/p Watchman procedure, AV block s/p PPM, chronic diastolic heart failure, hypertension, hyperlipidemia, MERVIN on CPAP, CKD stageIII, PAD/PVD who presented as direct admit with plans for left 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 s/p calcaneal ostectomy on 08/2024 with wound VAC placement and underwent left BKA on 11/05. Left foot wound grew MRSA, Enterococcus faecalis, VRE, chronic bacterium species and gram-negative bacilli. Hospital course further complicated with MRSA and VRE/Enterococcus faecalis/VCM bacteremia and cardiology was consulted. 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 He developed acute hypoxic respiratory failure secondary to CHF exacerbation and transferred to medical stepdown unit forfurther management and was aggressively diuresed with Bumex drip and wean down on supplemental oxygen. Plan by problems: -Acute hypoxic respiratory failure secondary to volume overload Patient is on oxygen by nasal cannula at 5 LPM, unable to wean further. I/O: - 2.5 L in last 24 hours. proBNP 2.9K which is downtrending. Currently on Bumex drip at 1 Mg per hour. Patient endorses abdominal fullness. Evaluated by cardiology, recommending increasing the Bumex drip to 2 Mg per hour and adding a dose of metolazone. Continue with Bumex drip at 1 mg/h Strict intake and output and daily weights Monitor and replete electrolytes to keep K greater than 4 and Mg greater than 2. 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 Patient was on ceftaroline and daptomycin. Will continuedaptomycin and discontinue ceftaroline since the repeat blood cultures have been negative. TATIANNA with possible small mobile vegetation in the mitral valve. Per EP, patient will need extraction of the pacemaker, planning for next week and since the patientis pacemaker dependent, will also need pacemaker insertion, timing to be decided. MRI brain to evaluate for septic emboli, reading awaited. Holding Jardiance A-fib/A-flutter s/p Watchman procedure AVB s/p PPM Cardiology following. Appreciate input Continue with amiodarone 200 mg daily and Lopressor 50 mg twice daily for rate control. Pacemaker removal plan is mentioned above. Monitor on telemetry TABITHA on CKD stage III: Baseline creatinine of 1.0-1.3. Currently creatinine improved to 1.6 TABITHA likely in the setting of cardiorenal syndrome Continue diuresis with Bumex drip Acute normocytic anemia H&H remained stable Comorbid conditions: -GERD: continue with protonix -History of MERVIN on CPAP -Type 2 diabetes: Hemoglobin A1c of 8.7 on 08/2024. Currently on sliding scale insulin Fingersticks checks 3 times daily AC On hypoglycemia protocol -History of alcohol use disorder: Continue with folic acid, thiamine and multivitamin -Depression: Continue Wellbutrin Scheduled Meds: acetaminophen, 975 mg, Oral, Q6H JUDSON amiODARONE, 200 mg, Oral, Daily amLODIPine, 10 mg, Oral, Daily buPROPion, 150 mg, Oral, BID calcium citrate, 950 mg, Oral, BID with meals chlorhexidine gluconate, , Topical, Daily cholecalciferol, 2,000 Units, Oral, Daily cyanocobalamin, 2,500 mcg, Oral, Daily DAPTOmycin, 10 mg/kg (Adjusted), Intravenous, Q24H donepezil, 10 mg, Oral, QAM [Provider Held] empagliflozin, 25 mg, Oral, Daily folic acid, 1 mg, Oral, Daily [Provider Held] glimepiride, 2 mg, Oral, Daily with breakfast heparin (porcine), 5,000 Units, Subcutaneous, Q8H JUDSON [Provider Held] insulin lispro, 1-11 Units, Subcutaneous, TID with meals [Provider Held] insulin lispro, 1-4 Units, Subcutaneous, NIGHTLY & 2AM insulin lispro, 1-6 Units, Subcutaneous, Q4H JUDSON [Provider Held] insulin lispro, 5 Units, Subcutaneous, TID with meals [Provider Held] metFORMIN, 500 mg, Oral, Daily with breakfast methocarbamol, 1,000 mg, Oral, 4x Daily metoPROLOL TARTRATE, 50 mg, Oral, BID multivitamin with minerals, 1 tablet, Oral, Daily nicotine, 1 patch, Transdermal, Daily PANTOprazole, 40 mg, Oral, Daily [Provider Held] pravastatin, 20 mg, Oral, Daily pregabalin, 150 mg, Oral, TID senna-docusate, 2 tablet, Oral, BID thiamine, 200 mg, Oral, Daily Continuous Infusions: bumetanide, 2 mg/hr, Last Rate: Stopped (11/11/24 1512) PRN Meds: bisacodyl bisacodyl calcium carbonate glucose OR glucose OR dextrose OR dextrose OR glucagon fentaNYL OR fentaNYL OR fentaNYL HYDROmorphone HYDROmorphone ipratropium-albuterol lactulose magnesium hydroxide melatonin mineral oil naloxone ondansetron ondansetron polyethylene glycol Discharge Barriers: Clinical status Quality Metrics DVT PROPHYLAXIS Risk Assessment Scores and Dates: VTE Time Out Orthopedics & NeuroSurgery VTE risk stratification: Standard or low risk (11/05/2024 12:44 PM)VTErisk low and NOT reassessed in last 5 days - Click here to document Chemical Prophylaxis heparin (porcine) 5000 unit/mL injection 5,000 Units Subcutaneous Every 8 hours scheduled Heparin Sodium (Porcine) 5000 Units Last dose 11/12/2024 9:29 AM Mechanical Prophylaxis SCDs are ordered - RIGHT (Knee High) Antibiotic Stewardship Treatment Indication: Bacteremia, endocarditis Expected Date of Discharge 11/16/2024 Subjective Chief complaint No chief complaint on file. Patient is being seen for acute medical problems and follow-up for chronic medical issues as mentioned in the assessment and plan above. Subjective Pt endorses abdominal fullness, he is on oxygen by nasal cannula at 5 LPM and denies shortness of breath. Denies any chest pain, dizziness, lightheadedness. Endorses phantom pain at the left lower extremity amputation stump. No other active symptoms. Objective Vitals: 11/11/24 1638 11/11/24202511/11/24 2108 11/12/24 0027 BP: 128/60 133/60 135/63 Pulse: 62 61 62 60 Resp: 18 18 18 Temp: 97 ??F (36.1 ??C) 96.6 ??F (35.9 ??C) 96.9 ??F (36.1 ??C) SpO2: 94% 95% 96% 98% 11/12/24 0031 11/12/24 0525 11/12/24 0931 11/12/24 1420 BP: 119/61 (P) 126/60 (!) 113/53 (!) 110/53 Pulse: 82 (P) 60 67 61 Resp: 18 (P) 18 18 16 Temp: (!) 95.4 ??F (35.2 ??C) (P) 96.7 ??F (35.9 ??C) 97.6 ??F (36.4 ??C) 98.1 ??F (36.7 ??C) SpO2: 99% (P) 93% (!) 91% 94% Physical Exam General: No Acute Distress Sclerae anicteric, Conjunctivae pink, Mucous membranes moist Lungs: Clear to auscultation CVS: Regular rhythm, Normal S1, Normal S2 Abdomen: Normal bowel sounds, Soft, Non-tender. Extremities: No edema. Neurological: Alert, Oriented X3, Normal speech, symmetrical face, No focal sensory or motor deficits. Relevant data reviewed Results from last 7 days Lab Units 11/12/24 0500 WHITE BLOOD CELL COUNT Thou/uL 11.1* HEMOGLOBIN g/dL 8.1* HEMATOCRIT % 26.3* PLATELET COUNT Thou/uL 456* Results from last 7 days Lab Units 11/12/24 1145 11/12/24 0801 11/12/24 0500 SODIUM mmol/L -- -- 138 POTASSIUM mmol/L -- -- 3.7 CHLORIDE mmol/L -- -- 96* CO2 mmol/L -- -- 30 BUN mg/dL -- -- 44* CREATININE mg/dL -- -- 1.6* EGFR -- -- 48* GLUCOSE mg/dL -- -- 126* GLUCOSE, POC mg/dL 286* < > -- CALCIUM mg/dL -- -- 9.1 < > = values in this interval not displayed. Sign Maddison Villalpando MD 11/12/2024 4:39 PM * Noemí Danielle MD - 11/12/2024 3:33 PM EST [facility] Progress Note Length of Stay: 10 Follow up for polymicrobial bacteremia with MRSA, Enterococcus; left foot infection status post BKA; pacemaker infection Antibiotics/antivirals/immunomodulators: Daptomycin (11/03-) Ceftaroline (11/05-) Meropenem (11/03-11/05) Aztreonam (11/07-11/10) Assessment 63-year-old male with A-fib status post pacemaker and watchman device, diabetes, PVD, CKD, diabeticfoot infection/osteomyelitis with history of calcaneal osteomyelitis status post debridement and ostectomy 08/2024 who presented with worsening left foot pain and swelling with fevers. He was found to have polymicrobial bacteremia with MRSA and Enterococcus faecalis and faecium, with the presumed source being his left foot. He underwent a left BKA on 11/05 for definitive source control, but it appears his Watchman device became secondarily seeded with a vegetation noted on TATIANNA. EP has assessed him, and are planning for device extraction and Micra implantation next week. At this time, he has cleared his blood cultures, so I do think the ceftaroline can be stopped. I would continue him on daptomycin. Plan -Continue daptomycin -Stopped ceftaroline -Await results from MRI brain -EP planning device extraction and Micra implantation, likely next week, await final timing Time spent on chart/literature review, [id number] discussion and exam with patient, and documentation: 50 minutes Subjective States that he feels okay. Denies any fevers, chills, nausea, vomiting. Reports some mild shortnessof breath. Pain in his left leg well-controlled. TATIANNA obtained, which showed a small mobile echodensity posterior to the mitral valve annulus, adjacent to the Watchman device, concerning for vegetation OBJECTIVE: Vitals: Temp (24hrs), Av.9 ??F (36.1 ??C), Min:95.4 ??F (35.2 ??C), Max:98.1 ??F (36.7 ??C) Temp Readings from Last 1 Encounters: 11/12/24 98.1 ??F (36.7 ??C) (Tympanic) Vitals: 11/12/24 1420 BP: (!) 110/53 Pulse: 61 Resp: 16 Temp: 98.1 ??F (36.7 ??C) SpO2: 94% Weight: Height: Physical Exam: Gen: Appropriate and conversant, NAD Eyes: PERRL, EOM intact HENT: Oropharynx clear, MM moist, neck supple CV: Normal S1 and S2, no m/r/g. No tenderness to palpation over left-sided pacemaker Resp: Decreased breath sounds in bilateral bases, otherwise clear without any wheezes or crackles GI: Normoactive BS, soft, ND, NT MSK: Left BKA stump in shield and dressings Skin: No rashes Neuro: A&Ox3, no focal deficits Lines: PIV's, right IJ triple-lumen central line Labs: Lab Results Component Value Date WBC 11.1 (H) 11/12/2024 HGB 8.1 (L) 11/12/2024 HCT 26.3 (L) 11/12/2024 MCV 90 11/12/2024 PLT 456 (H) 11/12/2024 Lab Results Component Value Date GLUC 286 (H) 11/12/2024 CALCIUM 9.1 11/12/2024 NA 138 11/12/2024 K 3.7 11/12/2024 CO2 30 11/12/2024 CL 96 (L) 11/12/2024 BUN 44 (H) 11/12/2024 CREAT 1.6 (H) 11/12/2024 Lab Results Component Value Date ALT 14 11/11/2024 AST 24 11/11/2024 ALKPHOS 207 (H) 11/11/2024 BILITOT 0.2 11/11/2024 Microbiology: 11/02: Blood-MRSA Enterococcus faecalis, susceptible to ampicillin, vancomycin Enterococcus faecium, resistant to ampicillin, sensitive to vancomycin; Eugenia/vanB gene detected on PCR 11/04: Blood-MRSA 11/06: Blood-negative 11/07: Blood-negative Imaging: Transesophageal Echocardiogram Result Date: 11/11/2024 Images from the original result were not included. There is a small mobile echodensity posterior tothe mitral valve annulus, adjacent to the watchman device (clip 62, 64). This could be a possible vegetation versus benign fibrous strand however in the setting of bacteremia vegetation cannot be excluded. Left ventricular systolic function is mildly decreased with an estimated ejection fraction of40-44%. Right ventricular systolic function is mildly reduced. There is a patent foramen ovale withpredominant left to right shunting indicated by color Doppler. There is mild apical tethering of the mitral valve leaflets.The mitral leaflets are mildly thickened. There is moderate functional mitral regurgitation with a centrally directed jet. There is no mitral valve stenosis. The tricuspid valve annulus is mildly dilated. There is moderate to severe tricuspid regurgitation. Compared to previous study on 11/04/2024, Device, pacemaker wire and valvular structures are better visualized. A small focal echodensity is seen posterior to mitral valve annulus andadjacent to watchman device. Mobile echodensity adjacent to Watchman device: XR Chest 1 view-Portable Result Date: 11/11/2024 No significant change from prior study Problem List: Principal Problem: Acute osteomyelitis of left calcaneus (HCC) (POA: Yes) Active Problems: HTN (hypertension) (POA: Yes) A-fib (HCC) (POA: Yes) PAD (peripheral artery disease) (POA: Yes) MERVIN on CPAP (POA: Yes) Diabetes (HCC) (POA: Yes) Stage 3a chronic kidney disease (CKD) (HCC) (POA: Yes) Hyperlipidemia (POA: Yes) Smoker (POA: Yes) Chronic diastolic congestive heart failure (HCC) (POA: Yes) Osteomyelitis (HCC) (POA: Yes) CKD (chronic kidney disease) (Chronic) (POA: Yes) Bacteremia (POA: Unknown) Presence of permanent cardiac pacemaker (POA: Unknown) Mitral valve vegetation (POA: Unknown) Mitral valve regurgitation (POA: Unknown) Resolved Problems: Noemí Danielle MD Available on [employer] 11/12/2024 3:33 PM * POOJA Allen - 11/12/2024 11:59 AM EST Images from the original note were not included. 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 He had a nonhealing left lower extremity ulcer and is now status left BKA. TATIANNA showing small mobile echodensity posterior to MV annulus and adjacent to watchman device- tentative plan for device extraction and Micra implantation next week TBD. Acute CHFrEF LVEf 43% Volume status diuresed -2.9 L in last 24h, on 5L NC, does not tolerate being weaned, abdomen feels distended per patient, no significant crackles on exam, JVP difficult to assess Remains on IV Bumex gtt @ 1 mg/hr- would increase drip to 2 mg/hour, with close monitoring of electrolytes BID, Cr 2.0-->1.6 (baseline Cr 1.0-1.3) with diuresis; probnp 4654-->2964 GDMT: jardiance on hold due to procedures and renal dysfunction- would resume when able, beta leeroy as below, will add ARB and aldactone as renal function continues to improve Keep K>4, Mg>2 with diuresis Strict I/O's daily weights Concern for mitral valve endocarditis: TATIANNA showing small mobile echodensity posterior to MV annulus and adjacent to watchman device - hold off on CT surg consult for now - will need follow up TATIANNA in 1 week -continue IV antibiotics per ID - brain MRI pending today to evaluate for septic emboli, involuntary movements and tremors, mental status normal on exam today- if this is positive for septic emboli, will need to involve CT surgery - continue telemetry monitoring Afib, Complete heart block, s/p dual chamber pacemaker He is pacemaker dependent, appreciated Dr. Pabon's note, will require extraction of his pacemaker due to bacteremia and Micra pacemaker insertion - timing likely next week- EP on board Pacer eval 11/11/24: Presenting rhythm: AP / [employer] MECH[employer]IC @ 60 bpm. Underlying rhythm: SB @ 58. Atrial pacing 71.2%, ventricular pacing 89%. Battery and lead parameters evaluated and within normal limits. Normal pacemaker function. Continue amiodarone 200 mg daily, Lopressor 50 mg BID for rate control Discussed with Dr. Meza Subjective / Events of past 24 hours: He still feels some fullness in his abdomen. Still on 5L NC difficult to wean post procedure. Reportedly tried to wean to 4L NC overnight and desatted. No chest pain or significant shortness of breath. No LE edema. No lightheadedness or dizziness. Objective: Telemetry Reviewed: [employer]CH[employer]IC 60 Last Vitals Pulse:67,Resp:18,BP:(!) 113/53,SpO2:(!) 91 %,Weight:120 kg (264 lb 8 oz) Temp Last 24 hrs: Temp Min: 95.4 ??F (35.2 ??C) Max: 97.6 ??F (36.4 ??C) Intake/Output Summary (Last 24 hours) at 11/12/2024 1159 Last data filed at 11/11/2024 1950 Gross per 24 hour Intake 315 ml Output 2675 ml Net -2360 ml Physical Exam GENERAL: No acute distress. HEENT: Anicteric. No pallor. Moist oral membranes. NECK: Supple. No carotid bruits. JVP difficult to assess CHEST: Nontender. Clear to auscultation bilaterally, no wheeze or crackles. CARDIAC: Normal rate and regular rhythm. No murmurs ABDOMEN: Soft. Nontender. Normal bowel sounds. EXTREMITIES: Warm. Well-perfused. No edema. L BKA VASCULAR: + distal pulses SKIN: Warm and dry. No rashes. NEUROLOGIC: Alert. Grossly nonfocal. Medications Medications Scheduled Medication Ordered Dose/Rate, Route, Frequency Last Action acetaminophen (TYLENOL) tablet 975 mg 975 mg, PO, Q6H JUDSON Given, 975 mg at 11/12 105 amiODARONE (PACERONE) tablet 200 mg 200 mg, PO, Daily Given, 200 mg at 11/12 936 amLODIPine (NORVASC) tablet 10 mg 10 mg, PO, Daily Given, 10 mg at 11/12 935 buPROPion (WELLBUTRIN SR) 12 hr tablet 150 mg 150 mg, PO, BID Given, 150 mg at 11/12 936 calcium citrate (CALCITRATE) tablet 950 mg 950 mg, PO, BID with meals Given, 950 mg at 11/12 936 ceftaroline (TEFLARO) 600 mg in sodium chloride (NS) 0.9 % 250 mL IVPB-WTD 600 mg, IV, Q8H Given, 600 mg at 11/12 925 chlorhexidine gluconate 2 % wipes - central line CHG application No Dose/Rate, TOP, Daily Given, 1 each at 11/12 945 cholecalciferol tablet 2,000 Units 2,000 Units, PO, Daily Given, 2,000 Units at 11/12 935 cyanocobalamin (VITAMIN B-12) tablet 2,500 mcg 2,500 mcg, PO, Daily Given, 2,500 mcg at 11/12 936 DAPTOmycin (CUBICIN) 975 mg in sodium chloride (NS) 0.9 % 50 mL IVPB 10 mg/kg, IV, Q24H Stopped, 11/11 165 donepezil (ARICEPT) tablet 10 mg 10 mg, PO, QAM Given, 10 mg at 11/12 936 [Provider Held] empagliflozin (JARDIANCE) 25 mg On hold since Fri11/04/2024 at 1503 until manually unheld; held by Gayle Rey Reason: Pre-procedure On hold since Fri11/04/2024 at 1503 until manually unheld (Needs Review) Hold reason: Pre-procedure 25 mg, PO, Daily Given, 25 mg at 11/04 0756 folic acid (FOLVITE) tablet 1 mg 1 mg, PO, Daily Given, 1 mg at 11/12 936 [Provider Held] glimepiride (AMARYL) tablet 2 mg On hold since Fri11/04/2024 at 1503 until manually unheld; held by Gayle Rey Reason: Pre-procedure On hold since Fri11/04/2024 at 1503 until manually unheld (Needs Review) Hold reason: Pre-procedure 2 mg, PO, Daily with breakfast Given, 2 mg at 11/04 0757 heparin (porcine) 5000 unit/mL injection 5,000 Units 5,000 Units, SC, Q8H JUDSON Given, 5,000 Units at 11/12 09 [Provider Held] insulin lispro (HumaLOG/ADMELOG) 100 units/mL injection 1-11 Units On hold since yesterday at 1034 until manually unheld; held by Prerna Crews Reason: NPO On hold since yesterday at 1034 until manually unheld (Needs Review) Hold reason: NPO 1-11 Units, SC, TID with meals Given, 4 Units at 11/11 0830 [Provider Held] insulin lispro (HumaLOG/ADMELOG) 100 units/mL injection 1-4 Units On hold since yesterday at 1034 until manually unheld; held by Prerna Crews Reason: NPO On hold since yesterday at 1034 until manually unheld (Needs Review) Hold reason: NPO 1-4 Units, SC, NIGHTLY & 2AM Given, 1 Units at 11/10 2037 insulin lispro (HumaLOG/ADMELOG) 100 units/mL injection 1-6 Units 1-6 Units, SC, Q4H JUDSON Given, 1 Units at 11/12 0455 [Provider Held] insulin lispro (HumaLOG/ADMELOG) 100 units/mL injection 5 Units On hold since Fri11/10/2024 at 0752 until manually unheld; held by POOJA Mas-CHolprema Reason: NPO On hold since Fri11/10/2024 at 0752 until manually unheld (Needs Review) Hold reason: NPO 5 Units, SC, TID with meals Given, 5 Units at 11/09 1313 [Provider Held] metFORMIN (GLUCOPHAGE) tablet 500 mg On hold since Fri11/04/2024 at 1503 until manually unheld; held by Juaquin Kern MDHold Reason: Pre-procedure On hold since Fri11/04/2024 at 1503 until manually unheld (Needs Review) Hold reason: Pre-procedure 500 mg, PO, Daily with breakfast Given, 500 mg at 11/04 755 methocarbamol (ROBAXIN) tablet 1,000 mg 1,000 mg, PO, 4x Daily Given, 1,000 mg at 11/12 936 metoPROLOL TARTRATE (LOPRESSOR) tablet 50 mg 50 mg, PO, BID Given, 50 mg at 11/12 935 multivitamin with minerals tablet 1 tablet 1 tablet, PO, Daily Given, 1 tablet at 11/12 935 nicotine (NICODERM CQ) 21 MG/24HR patch 1 patch 1 patch, TD, Daily Patch Applied, 1 patch at 11/12 929 PANTOprazole (PROTONIX) EC tablet 40 mg 40 mg, PO, Daily Given, 40 mg at 11/12 936 [Provider Held] pravastatin (PRAVACHOL) tablet 20 mg On hold since Fri11/03/2024 at 0850 until manually unheld; held by Gayle Rose Reason: Other - Comment requiredHold Comments: While on IV daptomycin On hold since Fri11/03/2024 at 0850 until manually unheld (Needs Review) Hold reason: Other - Comment required, Hold comment: While on IV daptomycin 20 mg, PO, Daily Ordered pregabalin (LYRICA) capsule 150 mg 150 mg, PO, TID Given, 150 mg at 11/12 0937 senna-docusate (SENNA-S) 8.6-50 MG tablet 2 tablet 2 tablet, PO, BID Given, 2 tablet at 11/12 0935 thiamine mononitrate (VITAMIN B-1) tablet 200 mg 200 mg, PO, Daily Given, 200 mg at 11/12 0936 Continuous Medication Ordered Dose/Rate, Route, Frequency Last Action bumetanide (BUMEX) IV infusion 12.5 mg in 50 mL 1 mg/hr, IV, Continuous Stopped, 11/11 151 PRN Medication Ordered Dose/Rate, Route, Frequency Last Action bisacodyl (DULCOLAX) EC tablet 5 mg 5 mg, PO, Daily PRN Ordered bisacodyl (DULCOLAX) suppository 10 mg 10 mg, RE, Daily PRN Ordered calcium carbonate (TUMS) chewable tablet 1,000 mg 1,000 mg, PO, Q12H PRN Ordered dextrose 50 % solution 12.5 g (Or Linked Group #1) 12.5 g, IV, Q15 Min PRN Ordered dextrose 50 % solution 25 g (Or Linked Group #1) 25 g, IV, Q15 Min PRN Ordered fentaNYL (SUBLIMAZE) 100 mcg/2 mL injection 10 mcg (Or Linked Group #2) 10 mcg, IV, Q5 Min PRN Ordered fentaNYL (SUBLIMAZE) 100 mcg/2 mL injection 12.5 mcg (Or Linked Group #2) 12.5 mcg, IV, Q5 Min PRN Ordered fentaNYL (SUBLIMAZE) 100 mcg/2 mL injection 25 mcg (Or Linked Group #2) 25 mcg, IV, Q5 Min PRN Ordered glucagon (GLUCAGEN) injection 1 mg (Or Linked Group #1) 1 mg, IM, Daily PRN Ordered glucose (GLUTOSE 15) 40 % oral gel 37.5 g (Or Linked Group #1) 1 Tube, PO, Q15 Min PRN Ordered glucose (GLUTOSE 15) 40 % oral gel 75 g (Or Linked Group #1) 2 Tube, PO, Q15 Min PRN Ordered HYDROmorphone (DILAUDID) tablet 2 mg 2 mg, PO, Q3H PRN Given, 2 mg at 11/11 1009 HYDROmorphone (DILAUDID) tablet 4 mg 4 mg, PO, Q3H PRN Given, 4 mg at 11/12 1056 ipratropium-albuterol (DUONEB) 0.5-2.5 mg/3 mL nebulizer solution 3 mL 3 mL, NEBULIZATION, Q2H PRN Given, 3 mL at 11/07 1025 lactulose (ENULOSE) 10 gm/15 mL solution 20 g 20 g, PO, Q4H PRN Ordered magnesium hydroxide (MILK OF MAGNESIA) 400 mg/5 mL suspension 30 mL 30 mL, PO, Q12H PRN Ordered melatonin tablet 3 mg 3 mg, PO, Nightly PRN Given, 3 mg at 11/08 2202 mineral oil (FLEET OIL) enema 1 enema 1 enema, RE, Daily PRN Ordered naloxone (NARCAN) 0.4 mg/mL injection 0.4 mg 0.4 mg, IV, Q5 Min PRN Ordered ondansetron (ZOFRAN) injection 4 mg 4 mg, IV, Once PRN Ordered ondansetron (ZOFRAN) injection 4 mg 4 mg, IV, Q6H PRN Ordered polyethylene glycol (miraLAx) packet 17 g 17 g, PO, Daily PRN Ordered Relevant data reviewed Results from last 7 days Lab Units 11/12/24 0801 11/12/24 0500 11/12/24 0451 11/11/24 1706 11/11/24 1400 11/11/24 0235 11/11/24 0200 11/08/24 0203 11/08/24 0005 11/07/24 1229 11/07/24 0813 SODIUM mmol/L -- 138 -- -- 139 -- 137 < > 133* < > 129* POTASSIUM mmol/L -- 3.7 -- -- 3.4 -- 3.8 < > 3.8 < > 3.9 CHLORIDE mmol/L -- 96* -- -- 97* -- 99 < > 98 < > 94* CO2 mmol/L -- 30 -- -- 30 -- 27 < > 21* < > 22 CO2, TOTAL -- -- -- -- -- -- -- -- -- < > -- BUN mg/dL -- 44* -- -- 49* -- 56* < > 48* < > 47* CREATININE mg/dL -- 1.6* -- -- 1.7* -- 2.0* < > 1.6* < > 1.5* CALCIUM mg/dL -- 9.1 -- -- 9.0 -- 8.7 < > 7.9* < > 8.3* GLUCOSE mg/dL -- 126* -- -- 124* -- 151* < > 231* < > 188* GLUCOSE, POC mg/dL 140* -- 140* < > -- < > -- < > -- < > -- EGFR -- 48* -- -- 45* -- 37* < > 48* < > 52* ALBUMIN g/dL -- -- -- -- -- -- 2.6* -- 2.3* -- 2.6* PROTEIN, TOTAL g/dL -- -- -- -- -- -- 6.4 -- 5.5* -- 6.1* BILIRUBIN TOTAL mg/dL -- -- -- -- -- -- 0.2 -- <0.2* -- 0.2 ALK PHOS U/L -- -- -- -- -- -- 207* -- 226* -- 220* ALT U/L -- -- -- -- -- -- 14 -- 24 -- 29 AST U/L -- -- -- -- -- -- 24 -- 24 -- 28 < > = values in this interval not displayed. Lab Results Component Value Date MG 1.8 11/12/2024 Results from last 7 days Lab Units 11/12/24 0500 11/11/24 0200 11/10/24 0004 11/07/24 0813 11/06/24 0458 WHITE BLOOD CELL COUNT Thou/uL 11.1* 13.2* 13.5* < > 11.9* HEMOGLOBIN g/dL 8.1* 8.2* 7.6* < > 8.7* HEMATOCRIT % 26.3* 26.1* 25.2* < > 27.9* PLATELET COUNT Thou/uL 456* 460* 445 < > 346 NEUTROS PCT % -- -- -- -- 88.8 LYMPHS PCT % -- -- -- -- 3.4 MONOS PCT % -- -- -- -- 6.6 EOS PCT % -- -- -- -- 0.0 BASOS PCT % -- -- -- -- 0.1 < > = values in this interval not displayed. Lab Results Component Value Date HSTNT 26 (H) 11/08/2024 HSTNT 29 (H) 11/07/2024 HSTNT 26 (H) 11/07/2024 Lab Results Component Value Date PROBNP 2,964 (H) 11/11/2024 Lab Results Component Value Date HGBA1C 8.7 (H) 09/03/2024 Imaging Studies All appropriate imaging studies within the past 24 hours reviewed (actual images) TATIANNA 11/11/24 There is a small mobile echodensity posterior to the mitral valve annulus, adjacent to the watchmandevice (clip 62, 64). This could be a possible vegetation versus benign fibrous strand however in the setting of bacteremia vegetation cannot be excluded. Left ventricular systolic function is mildly decreased with an estimated ejection fraction of 40-44%. Right ventricular systolic function is mildly reduced. There is a patent foramen ovale with predominant left to right shunting indicated by color Doppler. There is mild apical tethering of the mitral valve leaflets.The mitral leaflets are mildly thickened. There is moderate functional mitral regurgitation with a centrally directed jet. There is no mitral valve stenosis. The tricuspid valve annulus is mildly dilated. There is moderate to severe tricuspid regurgitation. Compared to previous study on 11/04/2024, Device, pacemaker wire and valvular structures are better visualized. A small focal echodensity is seen posterior to mitral valve annulus andadjacent to watchman device. Echo 11/04/2024: The left ventricle is mildly dilated. Left ventricular systolic function is mildly decreased. The quantitative EF is 43% by 3D imaging, and 46% by 2D Martinez biplane. The right ventricle is dilated. Right ventricular systolic function is normal. A pacer wire is present in the right ventricle. Right atrial cavity is severely dilated. A pacemaker wire is present in the right atrium. The mitral leaflets are moderately thickened. There is moderate to severe mitral regurgitation. Cannot rule out vegetation on the mitral valve leaflets. There is moderate tricuspid regurgitation. The estimated right ventricular systolic pressure is 44 mmHg. There is mild aortic regurgitation. The pulmonic valve was not well visualized. Compared to previous outside study report from [facility] on 08/05/2024, Mitral and tricuspid regurgitation were not previously reported. Recommend transesophageal echocardiogram if clinically indicated. Brain MRI pending Signed POOJA Allen 11/12/2024 11:59 AM * Meeta Jorge - 11/12/2024 11:31 AM EST Patient: Blas Genao Date: 11/12/24 Pain Management - Follow-Up Assessment: Blas Genao is a 63 year old male admitted with Enterococcus faecalis and MRSA bacteremia, s/p L BKA POD#7. Pt is now s/p TATIANNA on 11/11 which revealed a small mobile echodensity posterior to the mitral valve annulus, adjacent to the watchman device.Tentative plan for device extraction and Micra implantation next week. Patient was alert and awake upon entering the room. He states that he still has pain at the amputation site starting at where his ankle would be radiating up to his calf. He describes it as a achy and throbbing pain with involuntary muscle spasms, rating it as a 7/10. His pain worsens when changinghis compression stocking to a 9/10. He reports that he did PT today which has made the pain worse compared to yesterday. He states that he has relief from Dilaudid which lasts ~3h, but the pain neverimproves to below a 5/10. He requested increasing the dose of Dilaudid, he received 4 doses of Dilaudid 4 mg and 1 doses of dilaudid 2 mg in the past 24h. He says the pain is typically well controlled at night and he is able to sleep, but wakes up in increased pain. He does mention he has been having hand jerking/tremors in both of his hands and is bothersome. He does not report drowsiness or sedation. Discussed the possibility of adding an SNRI, but patient wanted to think about it. His BP is 140-113/70-53 mmHg. His Scr is trending downwards and LFTs are stable. Current Pain Medications Tylenol 975 mg PO Q6h Robaxin 1000 mg PO 4x/day Lyrica 150 mg PO TID Dilaudid 2 mg PO Q3h prn pain 4-6; x1 in 24h Dilaudid 4 mg PO Q3h prn pain 7-10; x4 in 24h Plan: Continue Tylenol 975 mg PO Q6h Continue Robaxin 1000 mg PO 4x/day Continue Lyrica 150 mg PO TID His tremors may be affected by Lyrica dosing but would weigh risk vs benefit of decreasing Lyrica dose as it has been helping with neuropathic pain. His renal function is improving. If patient has signs of sedation or worsening tremors, consider reducing the Lyrica dosing 150 mg PO BID. Continue Dilaudid 2-4mg PO q3h prn Continue to maximize current regimen. If pain becomes severe over the weekend, may need to considerincreasing to Dilaudid 4-6 mg PO q3h prn as his adjunctive medication options are becoming limited. Meeta Jorge, 2024 PharmD Candidate Associated attestation - Filippo Sims PharmD - 11/12/2024 12:53 PM EST I agree with the pharmacy scheduler note. * Elida Berger, OT - 11/12/2024 10:08 AM EST Occupational Therapy Progress Note Assessment & Progress Summary: Pt seen for OT f/u session +5L O2 via NC. Progress noted from previous OT session w/ improvements noted in bed mobility and dynamic standing balance. Pt participated in bed mobility mod I tocomplete ADLs sitting EOB. Ax2 provided for transfer training w/ RW as pt was able to hop along EOB~10 steps. Patient continues to present below functional baseline. Patient is highly motivated to return to [facility] and reports good family support and DME. Pt is an excellent rehab candidate and will benefit from3 hours of intensive daily therapy with the potential to return home and reintegrate back into the ommunity. Progress Towards Goals: progress toward functional goals is good Outcome Measures: The Activity Measure for Post-Acute Care (AM-PAC) Daily Activity Inpatient Short Form (6-clicks) zakiya standardized measure used to quantify deficits in self-care. The total score of the measure ranges from 6-24. A higher score indicates a higher level of independence with self-care tasks. Current [facility] Daily Activity Score: 16 Precautions/Restrictions: fall, isolation: contact, other (see comments) (skin) Rehab Plan of Care Patient will continue to benefit from skilled OT services 2-3x/wk while in house. OT intervention plan to focus on seated and standing ADLs w/ transfer training to decrease need for caregiver assistance and maximize functional independence. Recommend Ax2 w/ RW to transfer to commode for toileting, OOB for meals 3x/day, and active participation in ADLs. -OT Recommendations for Staff: Ax2 w/ RW to transfer to recliner/commode, encourage active participation in ADLs and OOB 3x/day -OT Frequency during Hospitalization: 2-3 times/wk -Progressive Mobility Level: Level 4 -Plan of Care Reviewed With: care plan/treatment goals reviewed, participants included, patient Education: OT role, POC, and recommendations Treatment Interventions/Objective Data Interventions to Optimize ADL Performance Grooming: set up assist to wash face sitting EOB Dressing: mod Ax1 to don nutmegger during session Transfers and Functional Mobility: supervision supine <> sit, mod Ax2 sit <> stand w/ RW and mod cueing for proper hand placement, mod Ax1 w/ RW to hop ~10- 15 steps while standing EOB w/ 1 seated rest break. Therapeutic Exercise: Pt participated in 10 reps of multiplaner reaching activities w/ BUE w/ unilateral support on walker and CGA. No LOB noted Provided pt w/ BUE HEP w/ green theraband to promote increased strength in BUE for transfer training and ADLs w/ good carryover. Exercises included - self-anchored elbow flexion/extension - self-anchored shoulder flexion - shoulder abduction Encouraged pt to perform 10 reps of each exercises 3x/day w/ use of teach back method and good carryover Neuromuscular Re-education: Pt tolerated ~10 min EOB to complete LB dressing and grooming activities w/ no physical assistance for sitting balance. Pt progressed to standing w/ Ax2 and RW, tolerating~8 min of standing activities w/ one seated rest break, requiring min-mod Ax1 for balance, even w/ lateral hopping activities. Pt w/ 2 slight LOB noted though able to self correct w/ use of RW. Good self awareness appreciated during activities Endurance/Activity Tolerance: good for session on 5L O2 via NC Subjective I did even better today Flowsheet Data 11/12/24 1008 OT Time and Intention OT Follow-Up Visit follow up treatment Mode of Treatment occupational therapy Patient Effort good Symptoms Noted During/After Treatment none General Information Patient Profile Reviewed yes Patient/Family/Caregiver Comments/Observations I did even better today General Observations of Patient pt recevied supine in bed, alert, and agreeable to therapy +5L O2 via Nc Existing Precautions/Restrictions fall;isolation: contact;other (see comments) (skin) Pain Assessment Pretreatment Pain Rating 0/10 - no pain Posttreatment Pain Rating 0/10 - no pain Coping Observed Emotional State cooperative;calm Verbalized Emotional State acceptance Safety Safety WDL WDL All Alarms alarm(s) activated and audible Enhanced Safety Measures bed alarm set Progressive Mobility Progressive Mobility Level Achieved Transferring to Chair [facility] Daily Activity Putting on and taking off Lower Body Clothing? 2 Bathing (including washing/rinsing/drying)? 2 Toileting (includes using toilet, bedpan, or urinal)? 2 Putting on and taking off upper body clothing? 3 Taking care of personal grooming such as brushing teeth? 3 Eating meals? 4 [facility] Daily Activity Score 16 Therapy Assessment/Plan (OT) Rehab Potential (OT) good Criteria for Skilled Therapeutic Interventions Met (OT) yes;skilled treatment is necessary Therapy Frequency (OT) 2-3 times/wk Predicted Duration of Therapy Intervention (OT) LOS Progress Summary (OT) Progress Toward Functional Goals (OT) progress toward functional goals is good Daily Progress Summary (OT) goals ongoing Therapy Plan Review/Discharge Plan (OT) Therapy Plan Review (OT) care plan/treatment goals reviewed;participants included;patient OT Recommendations for Staff Ax2 w/ RW to transfer to recliner/commode, encourage active participation in ADLs and OOB 3x/day Transfer Goal 1 (OT) Progress/Outcome (Transfer Goal 1, OT) good progress toward goal Bathing Goal 1 (OT) Progress/Outcomes (Bathing Goal 1, OT) good progress toward goal Dressing Goal 1 (OT) Progress/Outcome (Dressing Goal 1, OT) good progress toward goal Toileting Goal 1 (OT) Progress/Outcome (Toileting Goal 1, OT) good progress toward goal Sign: Elida Berger OT * Sam Mcgowan RN - 11/11/2024 4:39 PM EST Attached media from the original note were not included. Pacemaker evaluation completed on N12, device interrogation ordered for function. Presenting rhythm: AP / [employer]IC @ 60 bpm. Underlying rhythm: SB @ 58. Atrial pacing 71.2%, ventricular pacing 89%. Batteryand lead parameters evaluated and within normal limits. Normal pacemaker function. * Luis Degroot MD - 11/11/2024 3:34 PM EST HOSPITAL MEDICINE PROGRESS NOTE Principal Problem: Acute osteomyelitis of left calcaneus (HCC) (POA: Yes) Active Problems: HTN (hypertension) (POA: Yes) A-fib (HCC) (POA: Yes) PAD (peripheral artery disease) (POA: Yes) MERVIN on CPAP (POA: Yes) Diabetes (HCC) (POA: Yes) Stage 3a chronic kidney disease (CKD) (HCC) (POA: Yes) Hyperlipidemia (POA: Yes) Smoker (POA: Yes) Chronic diastolic congestive heart failure (HCC) (POA: Yes) Osteomyelitis (HCC) (POA: Yes) CKD (chronic kidney disease) (Chronic) (POA: Yes) Bacteremia (POA: Unknown) Presence of permanent cardiac pacemaker (POA: Unknown) Mitral valve vegetation (POA: Unknown) Mitral valve regurgitation (POA: Unknown) Resolved Problems: Assessment & Plan Brief Summary This is a 63-year-old male with past medical history of a flutter/A-fib s/p Watchman procedure, AV block s/p PPM, chronic diastolic heart failure, hypertension, hyperlipidemia, MERVIN on CPAP, CKD stageIII, PAD/PVD who presented as direct admit with plans for left 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 s/p calcaneal ostectomy on 08/2024 with wound VAC placement and underwent left BKA on 11/05. Left foot wound grew MRSA, Enterococcus faecalis, VRE, chronic bacterium species and gram-negative bacilli. Hospital course further complicated with MRSA and VRE/Enterococcus faecalis/VCM bacteremia and cardiology was consulted. 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 He developed acute hypoxic respiratory failure secondary to CHF exacerbation and transferred to medical stepdown unit forfurther management and was aggressively diuresed with Bumex drip and wean down on supplemental oxygen. Active problems: Acute hypoxic respiratory failure secondary to volume overload History of MERVIN on CPAP Urine output of net -7.2 L yesterday. proBNP downtrending. Continue with Bumex drip at 1 mg/h Strict intake and output and daily weights Optimize electrolytes to keep K greater than 4 and Mg greater than 2 Left calcaneal osteomyelitis/diabetic foot s/p left BKA and MRSA and Enterococcus faecalis/VCM bacteremia Presumed endocarditis Phantom limb pain: Continue with Teflaro and daptomycin continue to check CPK/LFTs every 3 days Infectious diseases following. Appreciate input Transesophageal echocardiogram with small mobile echodensity posterior to the mitral valve annulus adjacent to the Watchman device which could be possibly vegetation versus benign fibrous strand. LVEF of 40-44% and patent foramina well with [id number] shunting and moderate to severe TR MRI brain pending to evaluate for septic emboli ? mitral and pacer endocarditis CHF exacerbation A-fib/A-flutter s/p Watchman procedure AVB s/p PPM Holding Jardiance TATIANNA as above Cardiology following. Appreciate input Continue with amiodarone 200 mg daily and Lopressor 50 mg twice daily for rate control Monitor on telemetry Will keep K greater than 4 and Mg greater than 2 TABITHA on CKD stage III: Baseline creatinine of 1.0-1.3. Currently creatinine improved to 1.7 TABITHA likely in the setting of cardiorenal syndrome Continue diuresis with Bumex drip Comorbid conditions: GERD: continue with protonix Type 2 diabetes: Hemoglobin A1c of 8.7 on 08/2024. Currently on sliding scale insulin Fingersticks checks 3 times daily AC On hypoglycemia protocol Acute normocytic anemia H&H remained stable History of alcohol use disorder: Continue with folic acid, thiamine and multivitamin Depression: Continue Wellbutrin Diet: Cardiac PPX: Heparin subcu Code Status: Full code Dispo: Pending MRI brain and transition from IV to p.o. antibiotics Telemetry: Paced rhythm Soto Of note, some information is being carried forward from prior records for informational purposes only and is being cited so that efficiency, safety and quality of this patient's care is not compromised. Quality Metrics DVT PROPHYLAXIS Risk Assessment Scores and Dates: VTE Time Out Orthopedics & NeuroSurgery VTE risk stratification: Standard or low risk (11/05/2024 12:44 PM)VTErisk low and NOT reassessed in last 5 days - Click here to document Chemical Prophylaxis heparin (porcine) 5000 unit/mL injection 5,000 Units Subcutaneous Every 8 hours scheduled Heparin Sodium (Porcine) 5000 Units Last dose 11/11/2024 6:25 AM Mechanical Prophylaxis SCDs are ordered - RIGHT (Knee High) Patient declined SCD use, Please review Expected Date of Discharge 11/16/2024 Subjective Chief complaint No chief complaint on file. Patient is being seen for acute medical problems and follow-up for chronic medical issues as mentioned in the assessment and plan above. Overnight Events/Patient Discussion: Overnight, no acute issues Patient was seen and examined at bedside Patient denies chest pain, shortness of breath, abdominal pain, nausea, vomiting Objective Vitals: 11/11/24 1200 11/11/24 1225 11/11/24 1400 11/11/24 1416 BP: 131/60 134/62 138/64 BP Location: Left arm Left arm Patient Position: Sitting Sitting Pulse: 61 60 61 Resp: (!) 29 (!) 26 18 Temp: 96.5 ??F (35.8 ??C) TempSrc: Tympanic SpO2: (!) 90% 92% 92% Weight: Height: Physical Exam Constitutional: Appearance: He is not ill-appearing. Cardiovascular: Rate and Rhythm: Normal rate and regular rhythm. Heart sounds: No murmur heard. No friction rub. No gallop. Pulmonary: Breath sounds: No wheezing, rhonchi or rales. Abdominal: Tenderness: There is no abdominal tenderness. There is no guarding. Hernia: No hernia is present. Musculoskeletal: Right lower leg: No edema. Left lower leg: No edema. Neurological: Mental Status: He is oriented to person, place, and time. Relevant data reviewed Results from last 7 days Lab Units 11/11/24 0200 WHITE BLOOD CELL COUNT Thou/uL 13.2* HEMOGLOBIN g/dL 8.2* HEMATOCRIT % 26.1* PLATELET COUNT Thou/uL 460* Results from last 7 days Lab Units 11/11/24 1400 SODIUM mmol/L 139 POTASSIUM mmol/L 3.4 CHLORIDE mmol/L 97* CO2 mmol/L 30 BUN mg/dL 49* CREATININE mg/dL 1.7* EGFR 45* GLUCOSE mg/dL 124* CALCIUM mg/dL 9.0 Total time spent 55 minutes with greater than 50% spent counseling and coordinating care. Time was spent on the floor reviewing the chart, evaluating the patient and making a comprehensive treatment plan. Treatment plan was discussed with patient, staff and consultants. Note: Some information is being carried forward from prior records for informational purposes only and is being cited so that efficiency, safety and quality of this patient's care is not compromised. Sign Luis Degroot MD 11/11/2024 3:34 PM * Juany Ospina RN - 11/11/2024 1:15 PM ESTSummary: Nurse Navigator Note Follow up Ortho Trauma Nurse Navigator Rounding Note Revisited with patient. Introduced self to patient and reminded nurse navigator role. Patient's interaction with nurse navigator today: Receptive Assessment Pain: Patient reports pain is Fair . Patient Experience/Hospitality Screening: Patient reports no concerns with his care at present. Patient's concerns validated and emotional support provided; nurse manager long term care made aware. Resources: Patient informed of the following resources and how to request it: Integrative Medicine Services available at [facility], including, Massage Therapy, and Reiki/Energy Therapy Social Work Spiritual Care Pharmacist Nutrition Plan of Care Plan of care reviewed with patient at 1315. Interventions Previously provided and reviewed Stress Response Brochure including stress management during recovery process and available community resources with patient. Reminded of multi modal pain management, strategies for avoiding constipation (during hospital stayand once discharged) and the importance of balanced nutrition & adequate hydration during recovery. Patient reminded to be expecting a call from nurse navigator within 24-72 hours after transitioningfr hospital to discuss progress and/or any concerns. Confirmed patient contact information. Patient's questions and concerns addressed. Patient previously provided with notebook and business card with direct contact information and informed nurse navigator can be contacted with any questions or concerns throughout inpatient stay and during the recovery process. * Chris Taylor MD - 11/11/2024 10:52 AM EST Images from the original note were not included. Coverage for Dr. Mtz [facility] ID Progress Note Name: Blas Genao Age: 63 y.o. 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 ID was consulted on 11/03-> recommended to start daptomycin/meropenem given prior history of MDRO's and follow cultures. 1. Acute hypoxic respiratory failure, transferred to stepdown on 11/07 secondary to volume overload Chest x-ray today shows worsening bilateral upper lobe infiltrates, on bumetanide infusion 2. Polymicrobial bacteremia: Source was left foot infection/ osteomyelitis. -Source control achieved with left BKA on 11/05 -11/06 ,11/07,blood cultures = NGTD -11/04 (2/2) bld cx:MRSA -11/02(10/31) blood cultures: MRSA, Enterococcus faecalis, Enterococcus faecium -10/27: Left foot wound culture at [place]: MRSA, Enterococcus faecalis, VRE, Corynebacterium species and gram-negative bacilli on Gram stain 3. In the presence of MDR/polymicrobial bacteremia, concern for seeding of pacemaker. He will require PPM extraction -TTE: Left ventricle is mildly dilated, right ventricle is dilated, pacemaker wire in the right atrium, moderately thickened mitral leaflets, moderate to severe mitral regurgitation, cannot rule out vegetation on mitral valve leaflets, moderate tricuspid regurgitation 4. Fever/leukocytosis secondary to bacteremia/left foot infection: Afebrile 5. H/O atrial fibrillation s/p Watchman device implantation in 2018 6. AMS: Improved 7. Vision issues: Resolved 8. TABITHA. Creatinine 2.0 9. Right TMA with chronic wounds 10. Inflammatory markers CRP 29.62, ESR 79 11. Antibiotics -Daptomycin, 11/03 -Meropenem, 11/03-11/05 -Ceftaroline, 11/05 -Aztreonam, 11/07-11/10 12. Other labs: -11/11, CPK 37, LFTs show alkaline phosphatase 207 Plan: He still has intermittent twitching of the hands. Continue daptomycin/ceftaroline 2. If blood cultures stay negative tomorrow, then consider dc'ing ceftaroline 3. Check CPK/LFTs q3 days while on IV daptomycin 4. TATIANNA/MRI brain pending Dr. Danielle will follow on Friday ANTIBIOTIC TIME OUT Current antibiotic/day of therapy: Anti-infectives (From admission, onward) Start Dose/Rate Route Frequency Ordered Stop 11/05/24 1100 ceftaroline (TEFLARO) 600 mg in sodium chloride (NS) 0.9 % 250 mL IVPB-WTD 600 mg 250 mL/hr over 60 Minutes Intravenous Every 8 hours 11/05/24 1040 11/03/24 0900 DAPTOmycin (CUBICIN) 975 mg in sodium chloride (NS) 0.9 % 50 mL IVPB 10 mg/kg ?? 97.3 kg (Adjusted) 139 mL/hr over 30 Minutes Intravenous Every 24 hours 11/03/24 0849 OBJECTIVE Physical Examination: Vitals: 11/11/24 1000 BP: (!) 149/70 Pulse: 61 Resp: (!) 28 Temp: SpO2: 95% Weight: Height: General appearance - male On O2 nasal cannula Lungs: Scattered crackles Cardiovascular: Tachycardic Abdomen: Soft nontender Left BKA stump site covered in coil winder repair garment and ampu sheild LABORATORY AND DIAGNOSTIC DATA: Lab and imaging data were reviewed by me Results from last 7 days Lab Units 11/11/24 0200 11/10/24 0004 11/09/24 0150 11/07/24 0813 11/06/24 0458 WHITE BLOOD CELL COUNT Thou/uL 13.2* 13.5* 11.9* < > 11.9* HEMOGLOBIN g/dL 8.2* 7.6* 7.7* < > 8.7* HEMATOCRIT % 26.1* 25.2* 24.9* < > 27.9* PLATELET COUNT Thou/uL 460* 445 405 < > 346 NEUTROS PCT % -- -- -- -- 88.8 LYMPHS PCT % -- -- -- -- 3.4 MONOS PCT % -- -- -- -- 6.6 EOS PCT % -- -- -- -- 0.0 BASOS PCT % -- -- -- -- 0.1 < > = values in this interval not displayed. Results from last 7 days Lab Units 11/11/24 0731 11/11/24 0235 11/11/24 0200 11/10/24 1601 11/10/24 1203 11/10/24 0202 11/10/24 0004 11/08/24 0203 11/08/24 0005 11/07/24 1229 11/07/24 0813 SODIUM mmol/L -- -- 137 -- 137 -- 135* < > 133* < > 129* POTASSIUM mmol/L -- -- 3.8 -- 3.8 -- 3.8 < > 3.8 < > 3.9 CHLORIDE mmol/L -- -- 99 -- 101 -- 100 < > 98 < > 94* CO2 mmol/L -- -- 27 -- 25 -- 24 < > 21* < > 22 CO2, TOTAL -- -- -- -- -- -- -- -- -- < > -- BUN mg/dL -- -- 56* -- 57* -- 56* < > 48* < > 47* CREATININE mg/dL -- -- 2.0* -- 1.9* -- 2.0* < > 1.6* < > 1.5* CALCIUM mg/dL -- -- 8.7 -- 8.5* -- 8.2* < > 7.9* < > 8.3* GLUCOSE mg/dL -- -- 151* -- 135* -- 122* < > 231* < > 188* GLUCOSE, POC mg/dL 202* 174* -- < > -- < > -- < > -- < > -- EGFR -- -- 37* -- 39* -- 37* < > 48* < > 52* ALBUMIN g/dL -- -- 2.6* -- -- -- -- -- 2.3* -- 2.6* PROTEIN, TOTAL g/dL -- -- 6.4 -- -- -- -- -- 5.5* -- 6.1* BILIRUBIN TOTAL mg/dL -- -- 0.2 -- -- -- -- -- <0.2* -- 0.2 ALK PHOS U/L -- -- 207* -- -- -- -- -- 226* -- 220* ALT U/L -- -- 14 -- -- -- -- -- 24 -- 29 AST U/L -- -- 24 -- -- -- -- -- 24 -- 28 < > = values in this interval not displayed. Lab Results Component Value Date ALT 14 11/11/2024 AST 24 11/11/2024 ALKPHOS 207 (H) 11/11/2024 BILITOT 0.2 11/11/2024 Results from last 7 days Lab Units 11/05/24 0712 PROTHROMBIN TIME (PT) seconds 15.3* INR 1.3 Creatine Kinase (CK) Date Value Ref Range Status 11/11/2024 37 24 - 204 U/L Final 11/08/2024 91 24 - 204 U/L Final 11/05/2024 49 24 - 204 U/L Final proBNP, N-terminal Date Value Ref Range Status 11/11/2024 2,964 (H) <125 pg/mL Final Lab Results Component Value Date SEDRATE 79 (H) 11/02/2024 Lab Results Component Value Date CRP 29.62 (H) 11/02/2024 Blood Cultures: Lab Results Component Value Date CULTURE Sterile after 4 days 11/07/2024 Urine Cultures: No results found for: CRYSUA , HYALNCSTUA , UROBILINOGEN , BILIUA , BLOODUA , CLARITYUA , COLORUA , UACOMMENT , GLUCU , KETONESUA , LEUKOCYTESUA , NITRITEUA , PHUA , PROTEINUA , RBCUA , SPECIMEN , SPECGRAVUA , SQEPIUA , WBCUA OTHER MICROBIOLOGY: C. Difficile: No results found for: CDIFFTOX , NAP1 Imaging Studies XR Foot 1 view-Left Result Date: 11/02/2024 This exam was performed in office at [facility] and images reviewed by orthopedic provider. Any findings are documented within ambulatory encounter note on date of service. Current Medications: Current Facility-Administered Medications Medication Dose Route Frequency Provider Last Rate Last Admin acetaminophen (TYLENOL) tablet 975 mg 975 mg Oral Q6H [facility] Rafiq Chakraborty MD 975 mg at 11/11/24 0936 amiODARONE (PACERONE) tablet 200 mg 200 mg Oral Daily Claire Garibay PA-C 200 mg at 11/11/24 0937 amLODIPine (NORVASC) tablet 10 mg 10 mg Oral Daily Rafiq Chakraborty MD 10 mg at 11/11/24 0937 [Provider Held] aspirin enteric coated (ECOTRIN LOW STRENGTH) tablet 81 mg 81 mg Oral Q12H [facility] Rafqi Chakraborty MD 81 mg at 11/10/24 0914 bisacodyl (DULCOLAX) EC tablet 5 mg 5 mg Oral Daily PRN Rafiq Chakraborty MD bisacodyl (DULCOLAX) suppository 10 mg 10 mg Rectal Daily PRN Rafiq Chakraborty MD bumetanide (BUMEX) IV infusion 12.5 mg in 50 mL 1 mg/hr Intravenous Continuous Rafiq Chakraborty MD 4 mL/hr at 11/11/24 0600 1 mg/hr at 11/11/24 0600 buPROPion (WELLBUTRIN SR) 12 hr tablet 150 mg 150 mg Oral BID Rafiq Chakraborty MD 150 mg at 11/11/24 0935 calcium carbonate (TUMS) chewable tablet 1,000 mg 1,000 mg Oral Q12H PRN Rafiq Chakraborty MD calcium citrate (CALCITRATE) tablet 950 mg 950 mg Oral BID with meals Rafiq Chakraborty MD 950 mg at 11/11/24 0936 ceftaroline (TEFLARO) 600 mg in sodium chloride (NS) 0.9 % 250 mL IVPB-WTD 600 mg Intravenous Q8H Rafiq Chakraborty MD 600 mg at 11/11/24 0947 chlorhexidine gluconate 2 % wipes - central line CHG application Topical Daily Darrell Carcamo PA-C 1 each at 11/10/24 0923 cholecalciferol tablet 2,000 Units 2,000 Units Oral Daily Rafiq Chakraborty MD 2,000 Units at 11/11/24 0937 cyanocobalamin (VITAMIN B-12) tablet 2,500 mcg 2,500 mcg Oral Daily Rafiq Chakraborty MD 2,500 mcg at 11/11/24 0936 DAPTOmycin (CUBICIN) 975 mg in sodium chloride (NS) 0.9 % 50 mL IVPB 10 mg/kg (Adjusted) Intravenous Q24H Rafiq Chakraborty MD Stopped at 11/10/24 1616 glucose (GLUTOSE 15) 40 % oral gel 37.5 g 1 Tube Oral Q15 Min PRN Kayla Orona APRN Or glucose (GLUTOSE 15) 40 % oral gel 75 g 2 Tube Oral Q15 Min PRN Kayla Orona APRN Or dextrose 50 % solution 12.5 g 12.5 g Intravenous Q15 Min PRN Kayla Orona APRN Or dextrose 50 % solution 25 g 25 g Intravenous Q15 Min PRN Kayla Orona APRN Or glucagon (GLUCAGEN) injection 1 mg 1 mg Intramuscular Daily PRN Kayla Orona APRN donepezil (ARICEPT) tablet 10 mg 10 mg Oral QAM Rafiq Chakraborty MD 10 mg at 11/11/24 0936 [Provider Held] empagliflozin (JARDIANCE) 25 mg 25 mg Oral Daily Rafiq Chakraborty MD 25 mg at 11/04/24 0756 folic acid (FOLVITE) tablet 1 mg 1 mg Oral Daily Rafiq Chakraborty MD 1 mg at 11/11/24 0935 [Provider Held] glimepiride (AMARYL) tablet 2 mg 2 mg Oral Daily with breakfast Rafiq Chakraborty MD 2 mg at 11/04/24 0757 heparin (porcine) 5000 unit/mL injection 5,000 Units 5,000 Units Subcutaneous Q8H JUDSON Haven Bach APRN 5,000 Units at 11/11/24 0625 HYDROmorphone (DILAUDID) tablet 2 mg 2 mg Oral Q3H PRN Rafiq Chakraborty MD 2 mg at 11/11/24 1009 HYDROmorphone (DILAUDID) tablet 4 mg 4 mg Oral Q3H PRN Rafiq Chakraborty MD 4 mg at 11/11/24 1003 [Provider Held] insulin lispro (HumaLOG/ADMELOG) 100 units/mL injection 1-11 Units 1-11 Units Subcutaneous TID with meals Kayla Orona APRN 4 Units at 11/11/24 0830 [Provider Held] insulin lispro (HumaLOG/ADMELOG) 100 units/mL injection 1-4 Units 1-4 Units Subcutaneous NIGHTLY & 2AM Eunice Garrison APRN 1 Units at 02/12/25 2038 insulin lispro (HumaLOG/ADMELOG) 100 units/mL injection 1-6 Units 1-6 Units Subcutaneous Q4H [facility] POOJA Crews [Provider Held] insulin lispro (HumaLOG/ADMELOG) 100 units/mL injection 5 Units 5 Units Subcutaneous TID with meals Eunicehenri ColmenaresSHUBHAM bonner 5 Units at 11/09/24 1313 ipratropium-albuterol (DUONEB) 0.5-2.5 mg/3 mL nebulizer solution 3 mL 3 mL Nebulization Q2H PRN Rafiq Chakraborty MD 3 mL at 11/07/24 1025 lactulose (ENULOSE) 10 gm/15 mL solution 20 g 20 g Oral Q4H PRN Rafiq Chakraborty MD magnesium hydroxide (MILK OF MAGNESIA) 400 mg/5 mL suspension 30 mL 30 mL Oral Q12H PRN Rafiq Chakraborty MD melatonin tablet 3 mg 3 mg Oral Nightly PRN Rafiq Chakraborty MD 3 mg at 11/08/243 [Provider Held] metFORMIN (GLUCOPHAGE) tablet 500 mg 500 mg Oral Daily with breakfast Rafiq Chakraborty MD 500 mg at 11/04/24 0756 methocarbamol (ROBAXIN) tablet 1,000 mg 1,000 mg Oral 4x Daily Rafiq Chakraborty MD 1,000 mg at metoPROLOL TARTRATE (LOPRESSOR) tablet 50 mg 50 mg Oral BID Rafiq Chakraborty MD 50 mg at 11/11/24 0936 mineral oil (FLEET OIL) enema 1 enema 1 enema Rectal Daily PRN Rafiq Chakraborty MD multivitamin with minerals tablet 1 tablet 1 tablet Oral Daily Rafiq Chakraborty MD 1 tablet at naloxone (NARCAN) 0.4 mg/mL injection 0.4 mg 0.4 mg Intravenous Q5 Min PRN Rafiq Chakraborty MD nicotine (NICODERM CQ) 21 MG/24HR patch 1 patch 1 patch Transdermal Daily Rafiq Chakraborty MD 1 patch at 11/11/24 0947 ondansetron (ZOFRAN) injection 4 mg 4 mg Intravenous Q6H PRN Rafiq Chakraborty MD PANTOprazole (PROTONIX) EC tablet 40 mg 40 mg Oral Daily Rafiq Chakraborty MD 40 mg at 11/11/24 0937 polyethylene glycol (miraLAx) packet 17 g 17 g Oral Daily PRN Rafiq Chakraborty MD [Provider Held] pravastatin (PRAVACHOL) tablet 20 mg 20 mg Oral Daily Rafiq Chakraborty MD pregabalin (LYRICA) capsule 150 mg 150 mg Oral TID Shay Martin MD senna-docusate (SENNA-S) 8.6-50 MG tablet 2 tablet 2 tablet Oral BID Rafiq Chakraborty MD 2 tablet at 11/11/24 0935 thiamine mononitrate (VITAMIN B-1) tablet 200 mg 200 mg Oral Daily Rafiq Chakraborty MD 200 mg at 11/11/24 0936 ALLERGIES: Allergies Allergen Reactions Lisinopril Other (See Comments) Dehydration I reviewed the prescribed Medications and new Laboratory Blood Work. Monitor for drug related adverse events. 50 min spent in reviewing records, labs, imaging, coordination and formulation of plan ofcare I reviewed all new Imaging Studies (actual images) and compared to prior where applicable Of note, some information is being carried forward from prior records for informational purposes only and is being cited so that efficiency, safety and quality of this patient's care is not compromised This report was generated using [employer] dictation software. Although every attempt has been made by the provider to proofread this document, occasional misspellings and typographical errors Sign Chris Taylor MD, [facility] Infectious Diseases Available via [employer] 11/11/2024 10:52 AM * Olimpia Lainez, PharmD - 11/11/2024 9:29 AM EST Patient: Blas Genao Date: 11/11/24 Pain Management - Follow-Up Assessment: Blas Genao is a 63 year old male s/p L BKA POD#6. The patient was sitting up in bed awake and alert at the time of interview. The patient stated he still has pain from the amputation site in which he describes as a consistent throbbing pain which feels like a toothache, rating it a 7/10. He states he cannot get comfortable, and will often move/adjust his leg to get more comfortablebut continues to be in pain. His pain worsens when changing his compression stocking and worsens toa 9/10. He states that he has relief from Dilaudid which lasts ~3h, but the pain never improves to below a 5/10. However, per chart review, it is charted he has 0/10 pain most recently and was last do cumented as above a 5/10 yesterday @1530. He requested increasing the dose of Dilaudid, however he received 4 doses of Dilaudid 2 mg and 0 doses of dilaudid 4 mg in the past 24h. He says the pain is typically well controlled at night and he is able to sleep, but wakes up in increased pain. He does mention he has been having hand jerking/tremors in both of his hands and is bothersome. He does not report drowsiness or sedation. he BP is normal to slightly hypertensive, Scr is currently 2.0, and LFTs are stable. Current Pain Medications Tylenol 975 mg PO Q6h Robaxin 1000 mg PO 4x/day Lyrica 150 mg PO TID Dilaudid 2 mg PO Q3h prn pain 4-6; x4 in 24h Dilaudid 4 mg PO Q3h prn pain 7-10; x0 in 24h Plan: Continue Lyrica 150 mg PO TID Patient was alert and awake this morning, and denies any drowsiness or sedation. Given the TABITHA on CKD, there is concern for accumulation from pregabalin. If patient has signs of sedation or worseningtremors, consider reducing the dose or hold the Lyrica. Continue Tylenol 975 mg PO Q6h Continue Robaxin 1000 mg PO 4x/day Continue Dilaudid 2-4 mg PO Q3h prn; continue to optimize current doses Olimpia Lainez, FanyD * Nani Hollis PA-C - 11/11/2024 7:37 AM EST Critical Care Progress Note Subjective Overnight events - 8.5L UOP/24hr, negative 7.3L/24hr with stable kidney function - ProBNP downtrending and CXR with improving bilateral pulmonary congestion Assessment & Plan Assessment Patient is a 63 y.o. 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 Patient underwent L BKA with intraoperative cultures growing MRSA, Enterococcus faecalis, VRE, corynebacterium species and gram negative bacilli. His course has been complicated with bacteremia and concern for mitral valve/pacer lead endocarditis. He developed hypoxic respiratory failure requiring CPAP and was admitted to Step Down. Principal Problem: Acute osteomyelitis of left calcaneus (HCC) Active Problems: HTN (hypertension) A-fib (HCC) PAD (peripheral artery disease) MERVIN on CPAP Diabetes (HCC) Stage 3a chronic kidney disease (CKD) (HCC) Hyperlipidemia Smoker Chronic diastolic congestive heart failure (HCC) Osteomyelitis (HCC) CKD (chronic kidney disease) Bacteremia Presence of permanent cardiac pacemaker Mitral valve vegetation Mitral valve regurgitation LOS: 9 days Plan by system Neuro: Phantom limb pain, Hx. Alcohol use disorder - Mental status: A+Ox3, follows commands and participates appropriately in exam - Last drink /, no tox screen done on admission - Continue scheduled tylenol 975mg Q6h for pain, Robaxin 1000 mg QID, Lyrica 150 mg TID - Continue Dilaudid 2 mg Q3h PRN for moderate pain (x2 overnight), 4 mg q3h PRN for severe pain ([id number]). 1x dose of liquid dilaudid 1mg given this AM for acute pain with wound care. - Continue home bupropion 150mg BID, Aricept 10mg daily - Continue melatonin 3 mg nightly PRN - Continue cholecalciferol, folic acid, multivitamin, thiamine, cyanocobalamin - Anesthesia had been consulted for pain control; patient refused nerve block, pain well controlled - Neurovascular checks q8h - MRI brain ordered to rule out septic emboli CT Head (11/07): 1. No acute intracranial process or abnormal intracranial enhancement. If there is a high clinical index of suspicion for acute embolic infarction, and it would alter patient management, consider MR brain, if possible. 2. Mild microvascular white matter ischemic changes. Resp: Acute hypoxic respiratory failure 2/2 volume overload, Hx. MERVIN on CPAP, smoker - SPO2: 92-97% on 5LNC, intermittently uses nocturnal CPAP - VBG (11/08): 7.35/49/45/28 on 6LNC - Continue bumex gtt @1 with spot push dose as needed for goal net negative 1-2L (-7L/24hr) - Continue Duonebs PRN - Continue nicotine patch - Repeat CXR 2/ PM with improving bilateral pulmonary congestion, final read pending CXR 11/08: 1. Right internal jugular central venous catheter tip overlying the cavoatrial junction. 2. Hazy opacities in the bilateral lungs, most pronounced in the upper lung ta bilaterally. Attending note: Interval worsening of bilateral upper lung field airspace opacities as compared to the prior study. CV: Concern for mitral and pacer endocarditis, CHF exacerbation, Hx. CHF, HTN, HLD, Afib/Aflutter s/p watchman procedure, AVB s/p PPM, PAD/PVD - HR 60-70s, SBP 120-150s - proBNP 2964 (4654) - HS Trop 26 (29, peak) - Continue home amiodarone 200 mg daily, Norvasc 10 mg daily, lopressor 50 mg BID - Continue ASA 81mg daily - Hold pravastatin while on daptomycin - Hold Jardiance while inpatient - TTE could not confirm endocarditis, plan for TATIANNA - Awaiting response from their team regarding potential plan for today - Cardiology following - CT surgery consult pending TATIANNA - EP consulted for concern for infected PPM, further plan based on results of TATIANNA TTE 11/04: The left ventricle is mildly dilated. Left ventricular systolic function is mildly decreased. The quantitative EF is 43% by 3D imaging, and 46% by 2D Martinez biplane. The right ventricle is dilated. Right ventricular systolic function is normal. A pacer wire is present in the right ventricle. Right atrial cavity is severely dilated. A pacemaker wire is present in the right atrium. The mitral leaflets are moderately thickened. There is moderate to severe mitral regurgitation. Cannot rule out vegetation on the mitral valve leaflets. There is moderate tricuspid regurgitation. The estimated right ventricular systolic pressure is 44 mmHg. There is mild aortic regurgitation. The pulmonic valve was not well visualized. Compared to previous outside study report from [facility] on 08/05/2024, Mitral and tricuspid regurgitation were not previously reported. Recommend transesophageal echocardiogram if clinically indicated. GI: Hx. GERD - Diet: NPO except meds after midnight for possible TATIANNA - LFTs WNL except alk phos 207 - monitor every 3 days while on daptomycin (next 11/14) - Albumin 2.6 - Continue home protonix 40mg daily - Continue PRN Tums and Zofran - Stool output: x2/24h, continue bowel regimen + PRN Renal: TABITHA on CKD III, Hyponatremia likely 2/2 hypervolemia (resolved), Hx CKDIIIa - BUN/Cr 56/2 (57/1.9) (Baseline Cr 1.0-1.3) - Phos 4.7 (5.2) - CK 37 (91) - monitor while on daptomycin every 3 days (next 11/14) - Will continue diuresis as above and monitor kidney function closely - Continue calcium citrate BID - I/O: UOP 8.6L, -7.3L/24hr, net -2.4L Intake & Output Intake/Output Summary (Last 24 hours) at 11/11/2024 0737 Last data filed at 11/11/2024 0600 Gross per 24 hour Intake 1296 ml Output 8575 ml Net -7279 ml Endo: hyperglycemia, Hx. T2DM - FS 170-220s - Ha1c (08/2024): 8.7 - Has ISS while NPO - Check FS Q4h while NPO - Holding lispro 5u TID and meal ISS while NPO. May require additional standing lantus when diet resumed - Hypoglycemia protocol - Hold home metformin and glimepiride Heme: Acute normocytic anemia (stable), mild thrombocytosis - H/H 8.2/26.1 (7.6/25.2) - PLT 460 (445) - Continue to monitor H/H daily - VTE ppx: SQH ID: Left calcaneal osteomyelitis/diabetic foot s/p left BKA (11/05), MRSA and Enterococcus faecalis/faecium bacteremia, presumed endocarditis - Afebrile - WBC 13.2 (13.5) - Procal 0.40 - Respiratory viral panel negative - Blood cultures 11/02: MRSA, Enterococcus faecalis/faecium - Blood cultures 11/04: MRSA - Blood cultures 11/06: sterile to date - Blood cultures 11/07: sterile to date - MRSA 11/03: negative - Left leg tissue/bone pathology 11/05: pending - S/p Meropenem (11/03-11/05), aztreonam (11/07-11/10) - Continue Daptomycin (11/03-) and Ceftaroline (11/05-) per ID - Orthopedics following Vascular access: PIV, right internal jugular - not yet candidate for PICC with kidney function Mobility: Progressive Mobility Level Achieved: Level 0,PT/OT: Yes GI PPx: Home PPI DVT PPx: SC Heparin VTE Time Out Orthopedics & NeuroSurgery VTE risk stratification: Standard or low risk (11/05/2024 12:44 PM)VTErisk low and NOT reassessed in last 5 days - Click here to document Chemical Prophylaxis heparin (porcine) 5000 unit/mL injection 5,000 Units Subcutaneous Every 8 hours scheduled Heparin Sodium (Porcine) 5000 Units Last dose 11/11/2024 6:25 AM Mechanical Prophylaxis SCDs are ordered - RIGHT (Knee High) Patient declined SCD use, Please review IMPROVE SCORE: Drips: bumetanide, 1 mg/hr, Last Rate: 1 mg/hr (11/11/24 0600) Lines: Central Line - Triple Lumen (Adult) 11/08/24 1900 internal jugular vein, right (Active) Number of days: 3 Peripheral IV - Single Lumen (Adult) 11/08/24 0029 cephalic vein (lateral side of arm), right 20 gauge (Active) Number of days: 3 Enteric Access and Soto: Restraints: None Code: Full Dispo: Floor with tele, per Dr. Martin Objective Last Vitals: Pulse:62, Resp:(!) 23, BP:BP Min: 134/63 Max: 151/70 MAP: SpO2:93 % CVP: Temp Last 24 hrs: Temp Min: 96 ??F (35.6 ??C) Max: 97.6 ??F (36.4 ??C) Physical Exam: General appearance: Adult male sitting up in bed with nasal cannula in place, in no acute distress Lungs: CTA without wheezing or rhonchi, diminished at bases Heart: RRR S1S2, murmur present Abdomen: +BS, soft protuberant abdomen, non-tender to palpation Extremities: No lower extremity edema, left lower extremity with BKA, right lower extremity with all toes amputated, radial pulses 2+ bilaterally Neurologic: A+Ox3, no focal deficits, no tremor or fasciculations noted Labs: Recent Labs 11/09/24 0150 11/10/24 0004 11/11/24 0200 WBC 11.9* 13.5* 13.2* HGB 7.7* 7.6* 8.2* HCT 24.9* 25.2* 26.1* PLT 405 445 460* MCV 92 92 90 MCH 28.3 27.6 28.2 MCHC 30.9 30.2 31.4 RDW 17.1* 17.2* 17.0* Recent Labs 11/08/24 1746 11/09/24 0150 11/10/24 0004 11/10/24 1203 11/11/24 0200 BUN 45* 46* 56* 57* 56* CREAT 1.7* 1.8* 2.0* 1.9* 2.0* NA 141 139 135* 137 137 K 3.3* 3.6 3.8 3.8 3.8 CO2 26 25 24 25 27 CL 102 101 100 101 99 MG 1.9 2.3 2.1 2.0 2.0 PHOS 4.9* 5.2* 5.6* 5.2* 4.7* AST -- -- -- -- 24 ALT -- -- -- -- 14 PROT -- -- -- -- 6.4 No results for input(s): PT , PTT , INR in the last 72 hours. Medications Medication/MAR Report: Medications Scheduled Medication Ordered Dose/Rate, Route, Frequency Last Action acetaminophen (TYLENOL) tablet 975 mg 975 mg, PO, Q6H JUDSON Given, 975 mg at 11/11 0239 amiODARONE (PACERONE) tablet 200 mg 200 mg, PO, Daily Given, 200 mg at 11/10 914 amLODIPine (NORVASC) tablet 10 mg 10 mg, PO, Daily Given, 10 mg at 11/10 908 aspirin enteric coated (ECOTRIN LOW STRENGTH) tablet 81 mg 81 mg, PO, Q12H JUDSON Given, 81 mg at 11/10 913 buPROPion (WELLBUTRIN SR) 12 hr tablet 150 mg 150 mg, PO, BID Given, 150 mg at 11/10 2036 calcium citrate (CALCITRATE) tablet 950 mg 950 mg, PO, BID with meals Given, 950 mg at 11/10 1519 ceftaroline (TEFLARO) 600 mg in sodium chloride (NS) 0.9 % 250 mL IVPB-WTD 600 mg, IV, Q8H Given, 600 mg at 11/11 0250 chlorhexidine gluconate 2 % wipes - central line CHG application No Dose/Rate, TOP, Daily Given, 1 each at 11/10 922 cholecalciferol tablet 2,000 Units 2,000 Units, PO, Daily Given, 2,000 Units at 11/10 912 cyanocobalamin (VITAMIN B-12) tablet 2,500 mcg 2,500 mcg, PO, Daily Given, 2,500 mcg at 11/10 911 DAPTOmycin (CUBICIN) 975 mg in sodium chloride (NS) 0.9 % 50 mL IVPB 10 mg/kg, IV, Q24H Stopped, 11/10 1616 donepezil (ARICEPT) tablet 10 mg 10 mg, PO, QAM Given, 10 mg at 11/10 09 [Provider Held] empagliflozin (JARDIANCE) 25 mg On hold since Fri11/04/2024 at 1503 until manually unheld; held by Juaquin Kern MDHold Reason: Pre-procedure On hold since Fri11/04/2024 at 1503 until manually unheld (Needs Review) Hold reason: Pre-procedure 25 mg, PO, Daily Given, 25 mg at 11/04 0756 folic acid (FOLVITE) tablet 1 mg 1 mg, PO, Daily Given, 1 mg at 11/10 912 [Provider Held] glimepiride (AMARYL) tablet 2 mg On hold since Fri11/04/2024 at 1503 until manually unheld; held by Juaquin Kern MDHold Reason: Pre-procedure On hold since Fri11/04/2024 at 1503 until manually unheld (Needs Review) Hold reason: Pre-procedure 2 mg, PO, Daily with breakfast Given, 2 mg at 11/04 0757 heparin (porcine) 5000 unit/mL injection 5,000 Units 5,000 Units, SC, Q8H JUDSON Given, 5,000 Units at 11/11 0625 insulin lispro (HumaLOG/ADMELOG) 100 units/mL injection 1-11 Units 1-11 Units, SC, TID with meals Given, 5 Units at 11/10 1659 insulin lispro (HumaLOG/ADMELOG) 100 units/mL injection 1-4 Units 1-4 Units, SC, NIGHTLY & 2AM Given, 1 Units at 11/10 2037 [Provider Held] insulin lispro (HumaLOG/ADMELOG) 100 units/mL injection 5 Units On hold since yesterday at 0752 until manually unheld; held by POOJA Mas- CHolprema Reason: NPO On hold since yesterday at 0752 until manually unheld (Needs Review) Hold reason: NPO 5 Units, SC, TID with meals Given, 5 Units at 11/09 1313 [Provider Held] metFORMIN (GLUCOPHAGE) tablet 500 mg On hold since Fri11/04/2024 at 1503 until manually unheld; held by Juaquin eKrn MDHold Reason: Pre-procedure On hold since Fri11/04/2024 at 1503 until manually unheld (Needs Review) Hold reason: Pre-procedure 500 mg, PO, Daily with breakfast Given, 500 mg at 11/04 0756 methocarbamol (ROBAXIN) tablet 1,000 mg 1,000 mg, PO, 4x Daily Given, 1,000 mg at 11/10 2037 metoPROLOL TARTRATE (LOPRESSOR) tablet 50 mg 50 mg, PO, BID Given, 50 mg at 11/10 2036 multivitamin with minerals tablet 1 tablet 1 tablet, PO, Daily Given, 1 tablet at 11/10 09 nicotine (NICODERM CQ) 21 MG/24HR patch 1 patch 1 patch, TD, Daily Patch Applied, 1 patch at 11/10 918 PANTOprazole (PROTONIX) EC tablet 40 mg 40 mg, PO, Daily Given, 40 mg at 11/10 911 [Provider Held] pravastatin (PRAVACHOL) tablet 20 mg On hold since Fri11/03/2024 at 0850 until manually unheld; held by Ena Mtz MDHold Reason: Other - Comment requiredHold Comments: While on IV daptomycin On hold since Fri11/03/2024 at 0850 until manually unheld (Needs Review) Hold reason: Other - Comment required, Hold comment: While on IV daptomycin 20 mg, PO, Daily Ordered pregabalin (LYRICA) capsule 150 mg 150 mg, PO, TID Given, 150 mg at 11/10 2036 senna-docusate (SENNA-S) 8.6-50 MG tablet 2 tablet 2 tablet, PO, BID Given, 2 tablet at 11/10 2037 thiamine mononitrate (VITAMIN B-1) tablet 200 mg 200 mg, PO, Daily Given, 200 mg at 11/10 09 Continuous Medication Ordered Dose/Rate, Route, Frequency Last Action bumetanide (BUMEX) IV infusion 12.5 mg in 50 mL 1 mg/hr, IV, Continuous Rate/Dose Verify, 1 mg/hr at 11/11 0600 PRN Medication Ordered Dose/Rate, Route, Frequency Last Action bisacodyl (DULCOLAX) EC tablet 5 mg 5 mg, PO, Daily PRN Ordered bisacodyl (DULCOLAX) suppository 10 mg 10 mg, RE, Daily PRN Ordered calcium carbonate (TUMS) chewable tablet 1,000 mg 1,000 mg, PO, Q12H PRN Ordered dextrose 50 % solution 12.5 g (Or Linked Group #1) 12.5 g, IV, Q15 Min PRN Ordered dextrose 50 % solution 25 g (Or Linked Group #1) 25 g, IV, Q15 Min PRN Ordered glucagon (GLUCAGEN) injection 1 mg (Or Linked Group #1) 1 mg, IM, Daily PRN Ordered glucose (GLUTOSE 15) 40 % oral gel 37.5 g (Or Linked Group #1) 1 Tube, PO, Q15 Min PRN Ordered glucose (GLUTOSE 15) 40 % oral gel 75 g (Or Linked Group #1) 2 Tube, PO, Q15 Min PRN Ordered HYDROmorphone (DILAUDID) tablet 2 mg 2 mg, PO, Q3H PRN Given, 2 mg at 11/11 0634 HYDROmorphone (DILAUDID) tablet 4 mg 4 mg, PO, Q3H PRN Given, 4 mg at 11/09 1328 ipratropium-albuterol (DUONEB) 0.5-2.5 mg/3 mL nebulizer solution 3 mL 3 mL, NEBULIZATION, Q2H PRN Given, 3 mL at 11/07 1025 lactulose (ENULOSE) 10 gm/15 mL solution 20 g 20 g, PO, Q4H PRN Ordered magnesium hydroxide (MILK OF MAGNESIA) 400 mg/5 mL suspension 30 mL 30 mL, PO, Q12H PRN Ordered melatonin tablet 3 mg 3 mg, PO, Nightly PRN Given, 3 mg at 11/08 2202 mineral oil (FLEET OIL) enema 1 enema 1 enema, RE, Daily PRN Ordered naloxone (NARCAN) 0.4 mg/mL injection 0.4 mg 0.4 mg, IV, Q5 Min PRN Ordered ondansetron (ZOFRAN) injection 4 mg 4 mg, IV, Q6H PRN Ordered polyethylene glycol (miraLAx) packet 17 g 17 g, PO, Daily PRN Ordered Sign: Nani Hollis PA-C 11/11/2024 7:37 AM * Shay Martin MD - 11/11/2024 7:35 AM EST Images from the original note were not included. Division of Pulmonary, Critical Care, and Sleep Medicine [address] [facility], [address], [place] [address] Critical Care Progress Note Assessment & Plan Blas Genao is a 63 y.o. male with past medical history of HFrEF (EF 43%), AVB s/p PPM, A-fib/flutter s/p watchman's procedure, hyperlipidemia, hypertension, MERVIN on CPAP, CKD stage III, PAD/PVD initially presented for left 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 and then s/p calcaneal ostectomy 09/21 with wound VAC placement, BKA 11/05 (wound culture with MRSA, Enterococcus faecalis, VRE, chronic bacterium species), hospital course complicated by VRE/Enterococcus faecalis and MRSA bacteremia. Patient was placed on aztreonam, daptomycin and ceftaroline (TTE could not rule out vegetations but with suspicion of pacemaker lead and MV endocarditis). Patient was admitted to the ICU for rescue BiPAP in the setting of hypoxic respiratory failure secondary to acute pulmonary edema/volume overload/CHF exacerbation. 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 TABITHA on CKD stage III Left calcaneal osteomyelitis s/p BKA Hypervolemic hyponatremia Phantom limb pain Comorbid Conditions: Alcohol use disorder Hx of HFrEF (EF 43% AVB s/p PPM A-fib/flutter s/p watchman's procedure Hyperlipidemia Hypertension MERVIN on CPAP therapy PAD/PVD Total LOS: 9 days Plan by system Neuro: CAM: CAM-ICU Delirium Present: Negative Ferreira Agitation Sedation Scale (RASS) / Modified RASS: -1-->Wakes easily, drowsy Continue Tylenol and Robaxin for pain Dilaudid as needed Continue bupropion, Aricept, Lyrica Melatonin as needed for insomnia Anesthesia consult for pain control CT head pending to rule out septic emboli Neurovascular checks Q8 hourly Resp: Continue oxygen supplementation for goal sats >92% Follow-up ABG 7.38// Continue diuresis DuoNeb as needed Slight worsening of bilateral upper lobe infiltrates CV: Continue bumetanide infusion at 1 mg/h Goal net -1-2 L 24 hours Continue ASA, amiodarone, Norvasc, Lopressor Holding pravastatin while on daptomycin Holding Jardiance while inpatient TATIANNA on hold due to oxygen needs Follow-up CT surgery consult/recommendations Follow-up with EP consult/recommendations for infected PPM >Echo: 11/04/2024 The left ventricle is mildly dilated. Left ventricular systolic function is mildly decreased. The quantitative EF is 43% by 3D imaging, and 46% by 2D Martinez biplane. The right ventricle is dilated. Right ventricular systolic function is normal. A pacer wire is present in the right ventricle. Right atrial cavity is severely dilated. A pacemaker wire is present in the right atrium. The mitral leaflets are moderately thickened. There is moderate to severe mitral regurgitation. Cannot rule out vegetation on the mitral valve leaflets. There is moderate tricuspid regurgitation. The estimated right ventricular systolic pressure is 44 mmHg. There is mild aortic regurgitation. The pulmonic valve was not well visualized. Compared to previous outside study report from [facility] on 08/05/2024, Mitral and tricuspid regurgitation were not previously reported. Recommend transesophageal echocardiogram if clinically indicated. GI: Keep n.p.o. while on BiPAP Trend LFTs Bowel regimen >Nutrition: Diet/Nutrition Received: NPO Patient to receive supplements: specific meal/ supplement; Supplements with: Breakfast; Order: Glucerna Therapeutic Shake, Chocolate, 8 oz; Supplements with: Lunch; Order: Glucerna Therapeutic Shake,Chocolate, 8 oz; Supplements with: Dinner; Orde... Diet NPO; Meds Renal: Monitor renal function and urine output Monitor electrolytes Calcium citrate Monitor CK while on daptomycin Trend serum sodium >Intake & Output Intake/Output Summary (Last 24 hours) at 11/11/2024 0736 Last data filed at 11/11/2024 0600 Gross per 24 hour Intake 1296 ml Output 8575 ml Net -7279 ml Endo: Continue fingersticks every 4 while on BiPAP and n.p.o. ISS Lantus Last HB A1c 8.7 (09/21) Hypoglycemia protocol Heme/Onc: Normocytic anemia Daily CBC ID: Left calcaneal osteomyelitis s/p BKA MRSA/Enterococcus faecalis bacteremia Presumed endocarditis Continue daptomycin, ceftaroline Trend CPK/LFTs every 72 hours due to IV daptomycin TATIANNA and MRI brain pending Blood cultures 11/02: MRSA, Enterococcus faecalis/faecium Blood cultures 11/04: MRSA Blood cultures 11/06: NGTD Blood cultures 11/07: NGTD Infectious disease following >Antibiotics: Anti-infectives (From admission, onward) Start Dose/Rate Route Frequency Ordered Stop 11/05/24 1100 ceftaroline (TEFLARO) 600 mg in sodium chloride (NS) 0.9 % 250 mL IVPB-WTD 600 mg 250 mL/hr over 60 Minutes Intravenous Every 8 hours 11/05/24 1040 11/03/24 0900 DAPTOmycin (CUBICIN) 975 mg in sodium chloride (NS) 0.9 % 50 mL IVPB 10 mg/kg ?? 97.3 kg (Adjusted) 139 mL/hr over 30 Minutes Intravenous Every 24 hours 11/03/24 0849 Drips: bumetanide, 1 mg/hr, Last Rate: 1 mg/hr (11/11/24 0600) Lines: Central Line - Triple Lumen (Adult) 11/08/24 1900 internal jugular vein, right (Active) Number of days: 3 Peripheral IV - Single Lumen (Adult) 11/08/24 0029 cephalic vein (lateral side of arm), right 20 gauge (Active) Number of days: 3 Evaluation for Central line access removal was discussed today on rounds. If central line was no longer needed, then it would be removed. Indication for keeping central line: Restraints: Mobility: Progressive Mobility Level Achieved: Level 0 Soto: Evaluation for removal of Soto was discussed today on rounds. If no longer indicated, then it would be removed. Indication for keeping Soto: GI Prophylaxis (if needed): PPI DVT Prophylaxis: SCD Use: Device is properly applied and functional, CODE STATUS: Full code DISPOSITION: Floors with Tele I provided 35 minutes of Critical Care time evaluating, providing care and managing this criticallyill/injured patient. I affirm that this patient is critically ill and at high risk for sudden, fatal deterioration due to one or more of the above active issues. I managed/supervised life- or organ-supporting interventions that require frequent physician assessment and reassessment. Critical care time was spent, but not limited to, the review of laboratory test results, medications, relevant radiology and discussing this critically ill patient's care with other medical staff in the unit or at the nursing station ont floor where the patient is located. My full attention was given to the management of this patient and I was immediately available during this same time. This time did not include any separate billable procedures. Subjective/Overnight No acute overnight issues. Continued on 6 L nasal cannula. Was on nocturnal CPAP. Objective SpO2:93 %,O2 Device: (S) nasal cannula, Flow (L/min) (Oxygen Therapy): 6 O2 Flow Rate (L/min): 6, Temp Last 24 hrs: Temp Min: 96 ??F (35.6 ??C) Max: 97.6 ??F (36.4 ??C) WBC Trend White Blood Cell Count Date Value Ref Range Status 11/11/2024 13.2 (H) 4.0 - 11.0 Thou/uL Final 11/10/2024 13.5 (H) 4.0 - 11.0 Thou/uL Final 11/09/2024 11.9 (H) 4.0 - 11.0 Thou/uL Final 11/08/2024 13.1 (H) 4.0 - 11.0 Thou/uL Final Last Vitals: Pulse:62, Resp:(!) 23, BP:BP Min: 134/63 Max: 151/70 MAP: Physical Exam: General: alert, appears stated age and cooperative HEENT: supple without LAD Lungs: clear to auscultation bilaterally Chest wall: no tenderness Heart: regular rate and rhythm, S1, S2 normal, no murmur, click, rub or gallop Abdomen: soft, non-tender; bowel sounds normal; no masses, no organomegaly Extremities: atraumatic, no cyanosis or edema Neuro: non focal Skin: Warm, no rash Intake & Output: I/O last 3 completed shifts: In: 1880 [P.O.:1200; I.V.:280; IV Piggyback:400] Out: 9925 [Urine:9925] Intake/Output Summary (Last 24 hours) at 11/11/2024 0736 Last data filed at 11/11/2024 0600 Gross per 24 hour Intake 1296 ml Output 8575 ml Net -7279 ml Procedures: Surgical/Procedural Cases on this Admission Case IDs Date Procedure Surgeon Location Status [id number] 11/05/24 LEFT BELOW KNEE AMPUTATION Dallas Camejo MD [facility] OR Comp Medications: Medication/MAR Report: Medications Scheduled Medication Ordered Dose/Rate, Route, Frequency Last Action acetaminophen (TYLENOL) tablet 975 mg 975 mg, PO, Q6H JUDSON Given, 975 mg at 11/11 0239 amiODARONE (PACERONE) tablet 200 mg 200 mg, PO, Daily Given, 200 mg at 11/10 914 amLODIPine (NORVASC) tablet 10 mg 10 mg, PO, Daily Given, 10 mg at 11/10 09 aspirin enteric coated (ECOTRIN LOW STRENGTH) tablet 81 mg 81 mg, PO, Q12H JUDSON Given, 81 mg at 11/10 913 buPROPion (WELLBUTRIN SR) 12 hr tablet 150 mg 150 mg, PO, BID Given, 150 mg at 11/10 2036 calcium citrate (CALCITRATE) tablet 950 mg 950 mg, PO, BID with meals Given, 950 mg at 11/10 151 ceftaroline (TEFLARO) 600 mg in sodium chloride (NS) 0.9 % 250 mL IVPB-WTD 600 mg, IV, Q8H Given, 600 mg at 11/11 0250 chlorhexidine gluconate 2 % wipes - central line CHG application No Dose/Rate, TOP, Daily Given, 1 each at 11/10 922 cholecalciferol tablet 2,000 Units 2,000 Units, PO, Daily Given, 2,000 Units at 11/10 912 cyanocobalamin (VITAMIN B-12) tablet 2,500 mcg 2,500 mcg, PO, Daily Given, 2,500 mcg at 11/10 911 DAPTOmycin (CUBICIN) 975 mg in sodium chloride (NS) 0.9 % 50 mL IVPB 10 mg/kg, IV, Q24H Stopped, 11/10 161 donepezil (ARICEPT) tablet 10 mg 10 mg, PO, QAM Given, 10 mg at 11/10 902 [Provider Held] empagliflozin (JARDIANCE) 25 mg On hold since [facility] 11/04/2024 at 1503 until manually unheld; held by Juaquin Kern MDHold Reason: Pre-procedure On hold since Fri11/04/2024 at 1503 until manually unheld (Needs Review) Hold reason: Pre-procedure 25 mg, PO, Daily Given, 25 mg at 11/04 0756 folic acid (FOLVITE) tablet 1 mg 1 mg, PO, Daily Given, 1 mg at 11/10 912 [Provider Held] glimepiride (AMARYL) tablet 2 mg On hold since [facility] 11/04/2024 at 1503 until manually unheld; held by Juaquin Kern MDHold Reason: Pre-procedure On hold since Fri11/04/2024 at 1503 until manually unheld (Needs Review) Hold reason: Pre-procedure 2 mg, PO, Daily with breakfast Given, 2 mg at 11/04 0757 heparin (porcine) 5000 unit/mL injection 5,000 Units 5,000 Units, SC, Q8H JUDSON Given, 5,000 Units at 11/11 06 insulin lispro (HumaLOG/ADMELOG) 100 units/mL injection 1-11 Units 1-11 Units, SC, TID with meals Given, 5 Units at 11/10 1658 insulin lispro (HumaLOG/ADMELOG) 100 units/mL injection 1-4 Units 1-4 Units, SC, NIGHTLY & 2AM Given, 1 Units at 11/10 2037 [Provider Held] insulin lispro (HumaLOG/ADMELOG) 100 units/mL injection 5 Units On hold since yesterday at 0752 until manually unheld; held by POOJA Mas- CHold Reason: NPO On hold since yesterday at 0752 until manually unheld (Needs Review) Hold reason: NPO 5 Units, SC, TID with meals Given, 5 Units at 11/09 1313 [Provider Held] metFORMIN (GLUCOPHAGE) tablet 500 mg On hold since Fri11/04/2024 at 1503 until manually unheld; held by Juaquin Kern MDHold Reason: Pre-procedure On hold since Fri11/04/2024 at 1503 until manually unheld (Needs Review) Hold reason: Pre-procedure 500 mg, PO, Daily with breakfast Given, 500 mg at 11/04 0756 methocarbamol (ROBAXIN) tablet 1,000 mg 1,000 mg, PO, 4x Daily Given, 1,000 mg at 11/10 2037 metoPROLOL TARTRATE (LOPRESSOR) tablet 50 mg 50 mg, PO, BID Given, 50 mg at 11/10 2036 multivitamin with minerals tablet 1 tablet 1 tablet, PO, Daily Given, 1 tablet at 11/10 09 nicotine (NICODERM CQ) 21 MG/24HR patch 1 patch 1 patch, TD, Daily Patch Applied, 1 patch at 11/10 918 PANTOprazole (PROTONIX) EC tablet 40 mg 40 mg, PO, Daily Given, 40 mg at 11/10 09 [Provider Held] pravastatin (PRAVACHOL) tablet 20 mg On hold since Fri11/03/2024 at 0850 until manually unheld; held by Ena Mtz MDHold Reason: Other - Comment requiredHold Comments: While on IV daptomycin On hold since Fri11/03/2024 at 0850 until manually unheld (Needs Review) Hold reason: Other - Comment required, Hold comment: While on IV daptomycin 20 mg, PO, Daily Ordered pregabalin (LYRICA) capsule 150 mg 150 mg, PO, TID Given, 150 mg at 11/10 2036 senna-docusate (SENNA-S) 8.6-50 MG tablet 2 tablet 2 tablet, PO, BID Given, 2 tablet at 11/10 2037 thiamine mononitrate (VITAMIN B-1) tablet 200 mg 200 mg, PO, Daily Given, 200 mg at 11/10 0905 Continuous Medication Ordered Dose/Rate, Route, Frequency Last Action bumetanide (BUMEX) IV infusion 12.5 mg in 50 mL 1 mg/hr, IV, Continuous Rate/Dose Verify, 1 mg/hr at 11/11 0600 PRN Medication Ordered Dose/Rate, Route, Frequency Last Action bisacodyl (DULCOLAX) EC tablet 5 mg 5 mg, PO, Daily PRN Ordered bisacodyl (DULCOLAX) suppository 10 mg 10 mg, RE, Daily PRN Ordered calcium carbonate (TUMS) chewable tablet 1,000 mg 1,000 mg, PO, Q12H PRN Ordered dextrose 50 % solution 12.5 g (Or Linked Group #1) 12.5 g, IV, Q15 Min PRN Ordered dextrose 50 % solution 25 g (Or Linked Group #1) 25 g, IV, Q15 Min PRN Ordered glucagon (GLUCAGEN) injection 1 mg (Or Linked Group #1) 1 mg, IM, Daily PRN Ordered glucose (GLUTOSE 15) 40 % oral gel 37.5 g (Or Linked Group #1) 1 Tube, PO, Q15 Min PRN Ordered glucose (GLUTOSE 15) 40 % oral gel 75 g (Or Linked Group #1) 2 Tube, PO, Q15 Min PRN Ordered HYDROmorphone (DILAUDID) tablet 2 mg 2 mg, PO, Q3H PRN Given, 2 mg at 11/11 0634 HYDROmorphone (DILAUDID) tablet 4 mg 4 mg, PO, Q3H PRN Given, 4 mg at 11/09 1328 ipratropium-albuterol (DUONEB) 0.5-2.5 mg/3 mL nebulizer solution 3 mL 3 mL, NEBULIZATION, Q2H PRN Given, 3 mL at 11/07 1025 lactulose (ENULOSE) 10 gm/15 mL solution 20 g 20 g, PO, Q4H PRN Ordered magnesium hydroxide (MILK OF MAGNESIA) 400 mg/5 mL suspension 30 mL 30 mL, PO, Q12H PRN Ordered melatonin tablet 3 mg 3 mg, PO, Nightly PRN Given, 3 mg at 11/08 2202 mineral oil (FLEET OIL) enema 1 enema 1 enema, RE, Daily PRN Ordered naloxone (NARCAN) 0.4 mg/mL injection 0.4 mg 0.4 mg, IV, Q5 Min PRN Ordered ondansetron (ZOFRAN) injection 4 mg 4 mg, IV, Q6H PRN Ordered polyethylene glycol (miraLAx) packet 17 g 17 g, PO, Daily PRN Ordered Relevant data reviewed: Hemoglobin, Hematocrit and Platelets Recent Labs 11/09/24 0150 11/10/24 0004 11/11/24 0200 HGB 7.7* 7.6* 8.2* HCT 24.9* 25.2* 26.1* PLT 405 445 460* Electrolytes and Lactate Recent Labs 11/09/24 0150 11/10/24 0004 11/10/24 1203 11/11/24 0200 NA 139 135* 137 137 K 3.6 3.8 3.8 3.8 CL 101 100 101 99 CO2 25 24 25 27 ANIONGAP 13 11 11 11 BUN 46* 56* 57* 56* CREAT 1.8* 2.0* 1.9* 2.0* Hepatic Testing Recent Labs 11/11/24 0200 AST 24 ALT 14 ALKPHOS 207* BILITOT 0.2 BILIDIR 0.1 ALBUMIN 2.6* PROT 6.4 Coagulation Studies No results for input(s): PTT , LABPROT , INR in the last 72 hours. ABG Trends No results for input(s): PHA , PCO2 , PO2 , HCO3 in the last 72 hours. Recent Cultures: Culture Date Value Ref Range Status 11/07/2024 Sterile after 3 days Preliminary 11/07/2024 Sterile after 3 days Preliminary 11/06/2024 Sterile after 4 days Preliminary 11/06/2024 Sterile after 4 days Preliminary 11/04/2024 (A) Final Methicillin Resistant Staph aureus (MRSA) Aerobic bottle positive. Susceptibility of the same isolate identification, from the same apparent body site is only performed once per 5 calendar days. See susceptibilities reported on specimen collected 11/02/2024 11/04/2024 (A) Final Methicillin Resistant Staph aureus (MRSA) Aerobic bottle positive. Susceptibility of the same isolate identification, from the same apparent body site is only performed once per 5 calendar days. See susceptibilities reported on specimen collected 11/02/2024 Imaging Studies: Appropriate radiology imaging was reviewed (actual images) and compared to prior where applicable. Specific /additional concerns as highlighted below if appropriate. CXR 11/07 preliminary read: IMPRESSION: Worsening bilateral upper lung field airspace opacities and bronchial wall thickening compared to prior. CXR 11/04: IMPRESSION: Bilateral reticulonodular opacities concerning for interstitial edema. Superimposed atypical infection cannot be ruled out. This report was generated using [employer] dictation software. Although every attempt has been made by the provider to proofread this document, occasional misspellings and typographical errors may still be present. Sign: Shay Martin MD 11/11/2024 7:36 AM * POOJA Akers - 11/11/2024 6:48 AM EST Orthopedic Progress Note Principal Problem: Acute osteomyelitis of left calcaneus (HCC) (POA: Yes) Active Problems: HTN (hypertension) (POA: Yes) A-fib (HCC) (POA: Yes) PAD (peripheral artery disease) (POA: Yes) MERVIN on CPAP (POA: Yes) Diabetes (HCC) (POA: Yes) Stage 3a chronic kidney disease (CKD) (HCC) (POA: Yes) Hyperlipidemia (POA: Yes) Smoker (POA: Yes) Chronic diastolic congestive heart failure (HCC) (POA: Yes) Osteomyelitis (HCC) (POA: Yes) CKD (chronic kidney disease) (Chronic) (POA: Yes) Bacteremia (POA: Unknown) Presence of permanent cardiac pacemaker (POA: Unknown) Mitral valve vegetation (POA: Unknown) Mitral valve regurgitation (POA: Unknown) Resolved Problems: Assessment & Plan Assessment POD#6 s/p L BKA, complicated by bactermia, hypoxia and cardiogenic pulmonary edema, still awaiting TATIANNA to rule out/in endocarditis Plan -NWB, ampushield and stump coil winder repair -Currently on ASA BID and subcutaneous heparin- can likely DC ASA and continue heparin if ok with step down team. Once it is deemed pt does not need any more surgical procedures for his valve/pacemaker we can restart Yogesh from an ortho point -Will discuss whether there is any utility in getting a CTA chest to rule out PE as possible cause of pulmonary edema/hypoxia -Apprec ID recs- currently on dapto and ceftaroline -Dressing was changed today -Care per ICU team Subjective No complaints. No CP,SOB,N/V. Pain well controlled. Objective Last Vitals Pulse:60,Resp:(!) 23,BP:137/64,SpO2:95 %,Weight:120 kg (264 lb 8 oz) Temp Last 24 hrs: Temp Min: 96 ??F (35.6 ??C) Max: 97.6 ??F (36.4 ??C) Physical Exam Previous dressing was taken down. Surgical incision on the stump is well approx with josafat, thereis no erythema or drainage. I redressed with xeroform, abds and applied the coil winder repair garment and ampu shield. Labs: Recent Labs 11/11/24 0200 HCT 26.1* HGB 8.2* CREAT 2.0* Sign POOJA Akers 11/11/2024 6:48 AM * Toyna Gasca LCSW - 11/10/2024 2:01 PM EST SW visited with pt and he said that he was feeling a little better and happy to be eating. We discussed Advance Directives and Blas expressed his wish to revoke his previous Health Pare Proxy document in which he appointed his sister Minerva Gonzalez as his HCP and appoint his son Blas Evans and sister Jessica as his Joint Health Care Proxies. Pt is aware that they will need to work together. SW will scan copy into pt's chart. His niece Jessica was visiting and she brought pt's copies home with her per his request. Pt with no additional concerns at this time for SW and intervention complete. * Chris Taylor MD - 11/10/2024 11:34 AM EST Images from the original note were not included. Coverage for Dr. Mtz [facility] ID Progress Note Name: Blas M Genao Age: 63 y.o. 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 ID was consulted on 11/03-> recommended to start daptomycin/meropenem given prior history of MDRO's and follow cultures. 1. Acute hypoxic respiratory failure, transferred to stepdown on 11/07 secondary to volume overload 2. Polymicrobial bacteremia: Source was left foot infection/ osteomyelitis. -Source control achieved with left BKA on 11/05 -11/06 ,11/07,blood cultures = NGTD -11/04 (10/31) bld cx: G+ cocci in clusters -11/02(10/31) blood cultures: MRSA, Enterococcus faecalis, Enterococcus faecium -10/27: Left foot wound culture at [place]: MRSA, Enterococcus faecalis, VRE, Corynebacterium species and gram-negative bacilli on Gram stain 3. In the presence of MDR/polymicrobial bacteremia, concern for seeding of pacemaker. He will require PPM extraction -TTE: Left ventricle is mildly dilated, right ventricle is dilated, pacemaker wire in the right atrium, moderately thickened mitral leaflets, moderate to severe mitral regurgitation, cannot rule out vegetation on mitral valve leaflets, moderate tricuspid regurgitation 4. Fever/leukocytosis secondary to bacteremia/left foot infection: Afebrile 5. H/O atrial fibrillation s/p Watchman device implantation in 2018 6. AMS: Improved 7. Vision issues: Resolved 8. TABITHA. Creatinine 1.8 9. Right TMA with chronic wounds 10. Inflammatory markers CRP 29.62, ESR 79 11. Antibiotics -Daptomycin, 11/03 -Meropenem, 11/03-11/05 -Ceftaroline, 11/05 -Aztreonam, 11/07 12. Other labs: -Procalcitonin is 0.40. -CPKs 91, with alkaline phosphatase 226 on 11/08 Plan: Reports feeling better, though still requiring oxygen Still has intermittent tremors of the hands 1. Discontinue aztreonam. 2. Continue daptomycin/ceftaroline 3. Check CPK/LFTs q3 days while on IV daptomycin 4. TATIANNA/MRI brain pending 5. Neurology input pending ANTIBIOTIC TIME OUT Current antibiotic/day of therapy: Anti-infectives (From admission, onward) Start Dose/Rate Route Frequency Ordered Stop 11/05/24 1100 ceftaroline (TEFLARO) 600 mg in sodium chloride (NS) 0.9 % 250 mL IVPB-WTD 600 mg 250 mL/hr over 60 Minutes Intravenous Every 8 hours 11/05/24 1040 11/03/24 0900 DAPTOmycin (CUBICIN) 975 mg in sodium chloride (NS) 0.9 % 50 mL IVPB 10 mg/kg ?? 97.3 kg (Adjusted) 139 mL/hr over 30 Minutes Intravenous Every 24 hours 11/03/24 0849 OBJECTIVE Physical Examination: Vitals: 11/10/24 1000 BP: 130/60 Pulse: 60 Resp: 17 Temp: SpO2: 94% Weight: Height: General appearance - male Pleasant. On O2 nasal cannula Lungs: Improving air entry bilaterally Cardiovascular: Rate rhythm regular Abdomen: Soft, obese, nontender Left BKA stump covered LABORATORY AND DIAGNOSTIC DATA: Lab and imaging data were reviewed by me Results from last 7 days Lab Units 11/10/24 0004 11/09/24 0150 11/08/24 0005 11/07/24 0813 11/06/24 0458 WHITE BLOOD CELL COUNT Thou/uL 13.5* 11.9* 13.1* < > 11.9* HEMOGLOBIN g/dL 7.6* 7.7* 7.9* < > 8.7* HEMATOCRIT % 25.2* 24.9* 25.6* < > 27.9* PLATELET COUNT Thou/uL 445 405 378 < > 346 NEUTROS PCT % -- -- -- -- 88.8 LYMPHS PCT % -- -- -- -- 3.4 MONOS PCT % -- -- -- -- 6.6 EOS PCT % -- -- -- -- 0.0 BASOS PCT % -- -- -- -- 0.1 < > = values in this interval not displayed. Results from last 7 days Lab Units 11/10/24 0742 11/10/24 0202 11/10/24 0004 11/09/24 0729 11/09/24 0150 11/08/24 1958 11/08/24 1746 11/08/24 0203 11/08/24 0005 11/07/24 1229 11/07/24 0813 11/06/24 0751 11/06/24 0458 SODIUM mmol/L -- -- 135* -- 139 -- 141 -- 133* < > 129* -- 131* POTASSIUM mmol/L -- -- 3.8 -- 3.6 -- 3.3* -- 3.8 < > 3.9 -- 3.8 CHLORIDE mmol/L -- -- 100 -- 101 -- 102 -- 98 < > 94* -- 99 CO2 mmol/L -- -- 24 -- 25 -- 26 -- 21* < > 22 -- 20* CO2, TOTAL -- -- -- -- -- -- -- -- -- < > -- -- -- BUN mg/dL -- -- 56* -- 46* -- 45* -- 48* < > 47* -- 48* CREATININE mg/dL -- -- 2.0* -- 1.8* -- 1.7* -- 1.6* < > 1.5* -- 1.7* CALCIUM mg/dL -- -- 8.2* -- 8.2* -- 8.6* -- 7.9* < > 8.3* -- 7.8* GLUCOSE mg/dL -- -- 122* -- 117* -- 134* -- 231* < > 188* -- 194* GLUCOSE, POC mg/dL 134* 126* -- < > -- < > -- < > -- < > -- < > -- EGFR -- -- 37* -- 42* -- 45* -- 48* < > 52* -- 45* ALBUMIN g/dL -- -- -- -- -- -- -- -- 2.3* -- 2.6* -- 2.4* PROTEIN, TOTAL g/dL -- -- -- -- -- -- -- -- 5.5* -- 6.1* -- 5.7* BILIRUBIN TOTAL mg/dL -- -- -- -- -- -- -- -- <0.2* -- 0.2 -- 0.2 ALK PHOS U/L -- -- -- -- -- -- -- -- 226* -- 220* -- 270* ALT U/L -- -- -- -- -- -- -- -- 24 -- 29 -- 31 AST U/L -- -- -- -- -- -- -- -- 24 -- 28 -- 50 < > = values in this interval not displayed. Lab Results Component Value Date ALT 24 11/08/2024 AST 24 11/08/2024 ALKPHOS 226 (H) 11/08/2024 BILITOT <0.2 (L) 11/08/2024 Results from last 7 days Lab Units 11/05/24 0712 PROTHROMBIN TIME (PT) seconds 15.3* INR 1.3 Creatine Kinase (CK) Date Value Ref Range Status 11/08/2024 91 24 - 204 U/L Final 11/05/2024 49 24 - 204 U/L Final 11/03/2024 61 24 - 204 U/L Final proBNP, N-terminal Date Value Ref Range Status 11/09/2024 4,654 (H) <125 pg/mL Final Lab Results Component Value Date SEDRATE 79 (H) 11/02/2024 Lab Results Component Value Date CRP 29.62 (H) 11/02/2024 Blood Cultures: Lab Results Component Value Date CULTURE Sterile after 3 days 11/07/2024 Urine Cultures: No results found for: CRYSUA , HYALNCSTUA , UROBILINOGEN , BILIUA , BLOODUA , CLARITYUA , COLORUA , UACOMMENT , GLUCU , KETONESUA , LEUKOCYTESUA , NITRITEUA , PHUA , PROTEINUA , RBCUA , SPECIMEN , SPECGRAVUA , SQEPIUA , WBCUA OTHER MICROBIOLOGY: C. Difficile: No results found for: CDIFFTOX , NAP1 Imaging Studies XR Foot 1 view-Left Result Date: 11/02/2024 This exam was performed in office at [facility] and images reviewed by orthopedic provider. Any findings are documented within ambulatory encounter note on date of service. Current Medications: Current Facility-Administered Medications Medication Dose Route Frequency Provider Last Rate Last Admin acetaminophen (TYLENOL) tablet 975 mg 975 mg Oral Q6H JUDSON Rafiq Chakraborty MD 975 mg at 11/10/24 0407 amiODARONE (PACERONE) tablet 200 mg 200 mg Oral Daily Claire Garibay PA-C 200 mg at 11/10/24 0915 amLODIPine (NORVASC) tablet 10 mg 10 mg Oral Daily Rafiq Chakraborty MD 10 mg at 11/10/24 0909 aspirin enteric coated (ECOTRIN LOW STRENGTH) tablet 81 mg 81 mg Oral Q12H [facility] Rafiq Chakraborty MD 81 mg at 11/10/24 0914 bisacodyl (DULCOLAX) EC tablet 5 mg 5 mg Oral Daily PRN Rafiq Chakraborty MD bisacodyl (DULCOLAX) suppository 10 mg 10 mg Rectal Daily PRN Rafiq Chakraborty MD bumetanide (BUMEX) IV infusion 12.5 mg in 50 mL 1 mg/hr Intravenous Continuous Rafiq Chakraborty MD 4 mL/hr at 11/10/24 0600 1 mg/hr at 11/10/24 0600 buPROPion (WELLBUTRIN SR) 12 hr tablet 150 mg 150 mg Oral BID Rafiq Chakraborty MD 150 mg at 11/10/24 0910 calcium carbonate (TUMS) chewable tablet 1,000 mg 1,000 mg Oral Q12H PRN Rafiq Chakraborty MD calcium citrate (CALCITRATE) tablet 950 mg 950 mg Oral BID with meals Rafiq Chakraborty MD 950 mg at 11/10/24 0909 ceftaroline (TEFLARO) 600 mg in sodium chloride (NS) 0.9 % 250 mL IVPB-WTD 600 mg Intravenous Q8H Rafiq Chakraborty MD 600 mg at 11/10/24 0930 chlorhexidine gluconate 2 % wipes - central line CHG application Topical Daily Darrell Carcamo PA-C 1 each at 11/10/24 0923 cholecalciferol tablet 2,000 Units 2,000 Units Oral Daily Rafiq Chakraborty MD 2,000 Units at 11/10/24 0913 cyanocobalamin (VITAMIN B-12) tablet 2,500 mcg 2,500 mcg Oral Daily Rafiq Chakraborty MD 2,500 mcg at 11/10/24 0912 DAPTOmycin (CUBICIN) 975 mg in sodium chloride (NS) 0.9 % 50 mL IVPB 10 mg/kg (Adjusted) Intravenous Q24H Rafiq Chakraborty MD Stopped at 11/09/24 1613 glucose (GLUTOSE 15) 40 % oral gel 37.5 g 1 Tube Oral Q15 Min PRN Kayla Orona APRN Or glucose (GLUTOSE 15) 40 % oral gel 75 g 2 Tube Oral Q15 Min PRN Kayla Orona APRN Or dextrose 50 % solution 12.5 g 12.5 g Intravenous Q15 Min PRN Kayla Orona APRN Or dextrose 50 % solution 25 g 25 g Intravenous Q15 Min PRN Kayla Orona APRN Or glucagon (GLUCAGEN) injection 1 mg 1 mg Intramuscular Daily PRN Kayla Orona APRN donepezil (ARICEPT) tablet 10 mg 10 mg Oral QAM Rafiq Chakraborty MD 10 mg at 11/10/24 0903 [Provider Held] empagliflozin (JARDIANCE) 25 mg 25 mg Oral Daily Rafiq Chakraborty MD 25 mg at 11/04/24 0756 folic acid (FOLVITE) tablet 1 mg 1 mg Oral Daily Rafiq Chakraborty MD 1 mg at 11/10/24 0913 [Provider Held] glimepiride (AMARYL) tablet 2 mg 2 mg Oral Daily with breakfast Rafiq Chakraborty MD 2 mg at 11/04/24 0757 heparin (porcine) 5000 unit/mL injection 5,000 Units 5,000 Units Subcutaneous Q8H [facility] Haven Bach APRN 5,000 Units at 11/10/24 0550 HYDROmorphone (DILAUDID) tablet 2 mg 2 mg Oral Q3H PRN Rafiq Chakraborty MD 2 mg at 11/10/24 0902 HYDROmorphone (DILAUDID) tablet 4 mg 4 mg Oral Q3H PRN Rafiq Chakraborty MD 4 mg at 11/09/24 1328 insulin lispro (HumaLOG/ADMELOG) 100 units/mL injection 1-11 Units 1-11 Units Subcutaneous TID withmeals Kayla Orona APRN 5 Units at 11/09/24 1644 insulin lispro (HumaLOG/ADMELOG) 100 units/mL injection 1-4 Units 1-4 Units Subcutaneous NIGHTLY & 2AM Eunice Garrison APRN [Provider Held] insulin lispro (HumaLOG/ADMELOG) 100 units/mL injection 5 Units 5 Units Subcutaneous TID with meals Eunice DedraSHUBHAM bonner 5 Units at 11/09/24 1313 ipratropium-albuterol (DUONEB) 0.5-2.5 mg/3 mL nebulizer solution 3 mL 3 mL Nebulization Q2H PRN Rafiq Chakraborty MD 3 mL at 11/07/24 1025 lactulose (ENULOSE) 10 gm/15 mL solution 20 g 20 g Oral Q4H PRN Rafiq Chakraborty MD magnesium hydroxide (MILK OF MAGNESIA) 400 mg/5 mL suspension 30 mL 30 mL Oral Q12H PRN Rafiq Chakraborty MD melatonin tablet 3 mg 3 mg Oral Nightly PRN Rafiq Chakraborty MD 3 mg at 11/08/24 2203 [Provider Held] metFORMIN (GLUCOPHAGE) tablet 500 mg 500 mg Oral Daily with breakfast Rafiq Chakraborty MD 500 mg at 11/04/24 0756 methocarbamol (ROBAXIN) tablet 1,000 mg 1,000 mg Oral 4x Daily Rafiq Chakraborty MD 1,000 mg at metoPROLOL TARTRATE (LOPRESSOR) tablet 50 mg 50 mg Oral BID Rafiq Chakraborty MD 50 mg at 11/10/24 09 mineral oil (FLEET OIL) enema 1 enema 1 enema Rectal Daily PRN Rafiq Chakraborty MD multivitamin with minerals tablet 1 tablet 1 tablet Oral Daily Rafiq Chakraborty MD 1 tablet at naloxone (NARCAN) 0.4 mg/mL injection 0.4 mg 0.4 mg Intravenous Q5 Min PRN Rafiq Chakraborty MD nicotine (NICODERM CQ) 21 MG/24HR patch 1 patch 1 patch Transdermal Daily Rafiq Chakraborty MD 1 patch at 11/10/24 0919 ondansetron (ZOFRAN) injection 4 mg 4 mg Intravenous Q6H PRN Rafiq Chakraborty MD PANTOprazole (PROTONIX) EC tablet 40 mg 40 mg Oral Daily Rafiq Chakraborty MD 40 mg at 11/10/24911 polyethylene glycol (miraLAx) packet 17 g 17 g Oral Daily PRN Rafiq Chakraborty MD [Provider Held] pravastatin (PRAVACHOL) tablet 20 mg 20 mg Oral Daily Rafiq Chakraborty MD pregabalin (LYRICA) capsule 150 mg 150 mg Oral TID Rafiq Chakraborty MD 150 mg at 11/10/24 0904 senna-docusate (SENNA-S) 8.6-50 MG tablet 2 tablet 2 tablet Oral BID Rafiq Chakraborty MD 2 tablet at 11/10/24 0910 sodium chloride (NS) 0.9 % infusion - ADS Override Pull thiamine mononitrate (VITAMIN B-1) tablet 200 mg 200 mg Oral Daily Rafiq Chakraborty MD 200 mg at 11/10/24 0905 ALLERGIES: Allergies Allergen Reactions Lisinopril Other (See Comments) Dehydration I reviewed the prescribed Medications and new Laboratory Blood Work. Monitor for drug related adverse events. 50 min spent in reviewing records, labs, imaging, coordination and formulation of plan ofcare I reviewed all new Imaging Studies (actual images) and compared to prior where applicable Of note, some information is being carried forward from prior records for informational purposes only and is being cited so that efficiency, safety and quality of this patient's care is not compromised This report was generated using [employer] dictation software. Although every attempt has been made by the provider to proofread this document, occasional misspellings and typographical errors Sign Chris Taylor MD, F[facility], [facility] Infectious Diseases Available via [employer] 11/10/2024 11:34 AM * POOJA Jimenez - 11/10/2024 10:45 AM EST Images from the original note were not included. 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 He had a nonhealing left lower extremity ulcer and is now status left BKA. He is awaiting TATIANNA for further evaluation of suspectedendocarditis Acute CHFrEF Remains on IV Bumex gtt @ 1 mg/hr, volume status seems to be improving, Cr gradually rising now to 2.0; ntprobnp worse, Dr Velazquez to assess later today Still requiring oxygen - wean as tolerated, TATIANNA has been deferred to this point due to oxygen requirements, hoping to be done today Concern for mitral valve endocarditis: Awaiting TATIANNA, and will then likely require CT surgery evaluation; continue IV antibiotics per ID Complete heart block, s/p dual chamber pacemaker He is pacemaker dependent, appreciated Dr. Pabon's note, will require extraction of his pacemaker due to bacteremia and Micra pacemaker insertion Subjective / Events of past 24 hours: No specific complaints Wants to get TATIANNA done Volume status has greatly improved per patient, abdomen much less distended Objective: Telemetry Reviewed: [employer] 60 Last Vitals Pulse:60,Resp:17,BP:130/60,SpO2:94 %,Weight:120 kg (264 lb 8 oz) Temp Last 24 hrs: Temp Min: 96 ??F (35.6 ??C) Max: 97.2 ??F (36.2 ??C) Intake/Output Summary (Last 24 hours) at 11/10/2024 1045 Last data filed at 11/10/2024 1000 Gross per 24 hour Intake 2016 ml Output 3150 ml Net -1134 ml Physical Exam GENERAL: No acute distress. HEENT: Anicteric. No pallor. Moist oral membranes. NECK: Supple. No carotid bruits. JVP normal. CHEST: Nontender. Clear to auscultation bilaterally. CARDIAC: Regular rate and rhythm. Nondisplaced PMI. ABDOMEN: Soft. Nontender. Normal bowel sounds. EXTREMITIES: Warm. Well-perfused. No edema. VASCULAR: + distal pulses SKIN: Warm and dry. No rashes. NEUROLOGIC: Alert. Grossly nonfocal. Medications Medications Scheduled Medication Ordered Dose/Rate, Route, Frequency Last Action acetaminophen (TYLENOL) tablet 975 mg 975 mg, PO, Q6H JUDSON Given During Downtime, 975 mg at 11/10 0407 amiODARONE (PACERONE) tablet 200 mg 200 mg, PO, Daily Given, 200 mg at 11/10 0915 amLODIPine (NORVASC) tablet 10 mg 10 mg, PO, Daily Given, 10 mg at 11/10 0909 aspirin enteric coated (ECOTRIN LOW STRENGTH) tablet 81 mg 81 mg, PO, Q12H JUDSON Given, 81 mg at 11/10 0914 buPROPion (WELLBUTRIN SR) 12 hr tablet 150 mg 150 mg, PO, BID Given, 150 mg at 11/10 909 calcium citrate (CALCITRATE) tablet 950 mg 950 mg, PO, BID with meals Given, 950 mg at 11/10 908 ceftaroline (TEFLARO) 600 mg in sodium chloride (NS) 0.9 % 250 mL IVPB-WTD 600 mg, IV, Q8H Given, 600 mg at 11/10 929 chlorhexidine gluconate 2 % wipes - central line CHG application No Dose/Rate, TOP, Daily Given, 1 each at 11/10 922 cholecalciferol tablet 2,000 Units 2,000 Units, PO, Daily Given, 2,000 Units at 11/10 912 cyanocobalamin (VITAMIN B-12) tablet 2,500 mcg 2,500 mcg, PO, Daily Given, 2,500 mcg at 11/10 911 DAPTOmycin (CUBICIN) 975 mg in sodium chloride (NS) 0.9 % 50 mL IVPB 10 mg/kg, IV, Q24H Stopped, 11/09 161 donepezil (ARICEPT) tablet 10 mg 10 mg, PO, QAM Given, 10 mg at 11/10 902 [Provider Held] empagliflozin (JARDIANCE) 25 mg On hold since [facility] 11/04/2024 at 1503 until manually unheld; held by Juaquin Kern MDHold Reason: Pre-procedure On hold since Fri11/04/2024 at 1503 until manually unheld Hold reason: Pre-procedure 25 mg, PO, Daily Given, 25 mg at 11/04 0756 folic acid (FOLVITE) tablet 1 mg 1 mg, PO, Daily Given, 1 mg at 11/10 912 [Provider Held] glimepiride (AMARYL) tablet 2 mg On hold since [facility] 11/04/2024 at 1503 until manually unheld; held by Gayle Rey Reason: Pre-procedure On hold since [facility] 11/04/2024 at 1503 until manually unheld Hold reason: Pre-procedure 2 mg, PO, Daily with breakfast Given, 2 mg at 11/04 0757 heparin (porcine) 5000 unit/mL injection 5,000 Units 5,000 Units, SC, Q8H JUDSON Given, 5,000 Units at 11/10 0550 insulin lispro (HumaLOG/ADMELOG) 100 units/mL injection 1-11 Units 1-11 Units, SC, TID with meals Given, 5 Units at 11/09 1644 insulin lispro (HumaLOG/ADMELOG) 100 units/mL injection 1-4 Units 1-4 Units, SC, NIGHTLY & 2AM Ordered [Provider Held] insulin lispro (HumaLOG/ADMELOG) 100 units/mL injection 5 Units On hold since todayat 0752 until manually unheld; held by POOJA Mas-CHolprema Reason: NPO On hold since today at 0752 until manually unheld Hold reason: NPO 5 Units, SC, TID with meals Given, 5 Units at 11/09 1313 [Provider Held] metFORMIN (GLUCOPHAGE) tablet 500 mg On hold since Fri11/04/2024 at 1503 until manually unheld; held by Juaquin Kern MDHold Reason: Pre-procedure On hold since Fri11/04/2024 at 1503 until manually unheld Hold reason: Pre-procedure 500 mg, PO, Daily with breakfast Given, 500 mg at 11/04 0756 methocarbamol (ROBAXIN) tablet 1,000 mg 1,000 mg, PO, 4x Daily Given, 1,000 mg at 11/10 09 metoPROLOL TARTRATE (LOPRESSOR) tablet 50 mg 50 mg, PO, BID Given, 50 mg at 11/10 911 multivitamin with minerals tablet 1 tablet 1 tablet, PO, Daily Given, 1 tablet at 11/10 0915 nicotine (NICODERM CQ) 21 MG/24HR patch 1 patch 1 patch, TD, Daily Patch Applied, 1 patch at 11/10 09 PANTOprazole (PROTONIX) EC tablet 40 mg 40 mg, PO, Daily Given, 40 mg at 11/10 911 [Provider Held] pravastatin (PRAVACHOL) tablet 20 mg On hold since Fri11/03/2024 at 0850 until manually unheld; held by Ena Mtz MDHold Reason: Other - Comment requiredHold Comments: While on IV daptomycin On hold since Fri11/03/2024 at 0850 until manually unheld Hold reason: Other - Comment required, Hold comment: While on IV daptomycin 20 mg, PO, Daily Ordered pregabalin (LYRICA) capsule 150 mg 150 mg, PO, TID Given, 150 mg at 11/10 903 senna-docusate (SENNA-S) 8.6-50 MG tablet 2 tablet 2 tablet, PO, BID Given, 2 tablet at 11/10 909 sodium chloride (NS) 0.9 % infusion - ADS Override Pull No Dose/Rate Ordered thiamine mononitrate (VITAMIN B-1) tablet 200 mg 200 mg, PO, Daily Given, 200 mg at 11/10 904 Continuous Medication Ordered Dose/Rate, Route, Frequency Last Action bumetanide (BUMEX) IV infusion 12.5 mg in 50 mL 1 mg/hr, IV, Continuous Rate/Dose Verify, 1 mg/hr at 11/10 0600 PRN Medication Ordered Dose/Rate, Route, Frequency Last Action bisacodyl (DULCOLAX) EC tablet 5 mg 5 mg, PO, Daily PRN Ordered bisacodyl (DULCOLAX) suppository 10 mg 10 mg, RE, Daily PRN Ordered calcium carbonate (TUMS) chewable tablet 1,000 mg 1,000 mg, PO, Q12H PRN Ordered dextrose 50 % solution 12.5 g (Or Linked Group #1) 12.5 g, IV, Q15 Min PRN Ordered dextrose 50 % solution 25 g (Or Linked Group #1) 25 g, IV, Q15 Min PRN Ordered glucagon (GLUCAGEN) injection 1 mg (Or Linked Group #1) 1 mg, IM, Daily PRN Ordered glucose (GLUTOSE 15) 40 % oral gel 37.5 g (Or Linked Group #1) 1 Tube, PO, Q15 Min PRN Ordered glucose (GLUTOSE 15) 40 % oral gel 75 g (Or Linked Group #1) 2 Tube, PO, Q15 Min PRN Ordered HYDROmorphone (DILAUDID) tablet 2 mg 2 mg, PO, Q3H PRN Given, 2 mg at 11/10 09 HYDROmorphone (DILAUDID) tablet 4 mg 4 mg, PO, Q3H PRN Given, 4 mg at 11/09 1328 ipratropium-albuterol (DUONEB) 0.5-2.5 mg/3 mL nebulizer solution 3 mL 3 mL, NEBULIZATION, Q2H PRN Given, 3 mL at 11/07 1025 lactulose (ENULOSE) 10 gm/15 mL solution 20 g 20 g, PO, Q4H PRN Ordered magnesium hydroxide (MILK OF MAGNESIA) 400 mg/5 mL suspension 30 mL 30 mL, PO, Q12H PRN Ordered melatonin tablet 3 mg 3 mg, PO, Nightly PRN Given, 3 mg at 11/08 2202 mineral oil (FLEET OIL) enema 1 enema 1 enema, RE, Daily PRN Ordered naloxone (NARCAN) 0.4 mg/mL injection 0.4 mg 0.4 mg, IV, Q5 Min PRN Ordered ondansetron (ZOFRAN) injection 4 mg 4 mg, IV, Q6H PRN Ordered polyethylene glycol (miraLAx) packet 17 g 17 g, PO, Daily PRN Ordered Relevant data reviewed Results from last 7 days Lab Units 11/10/24 0742 11/10/24 0202 11/10/24 0004 11/09/24 0729 11/09/24 0150 11/08/24 1958 11/08/24 1746 11/08/24 0203 11/08/24 0005 11/07/24 1229 11/07/24 0813 11/06/24 0751 11/06/24 0458 SODIUM mmol/L -- -- 135* -- 139 -- 141 -- 133* < > 129* -- 131* POTASSIUM mmol/L -- -- 3.8 -- 3.6 -- 3.3* -- 3.8 < > 3.9 -- 3.8 CHLORIDE mmol/L -- -- 100 -- 101 -- 102 -- 98 < > 94* -- 99 CO2 mmol/L -- -- 24 -- 25 -- 26 -- 21* < > 22 -- 20* CO2, TOTAL -- -- -- -- -- -- -- -- -- < > -- -- -- BUN mg/dL -- -- 56* -- 46* -- 45* -- 48* < > 47* -- 48* CREATININE mg/dL -- -- 2.0* -- 1.8* -- 1.7* -- 1.6* < > 1.5* -- 1.7* CALCIUM mg/dL -- -- 8.2* -- 8.2* -- 8.6* -- 7.9* < > 8.3* -- 7.8* GLUCOSE mg/dL -- -- 122* -- 117* -- 134* -- 231* < > 188* -- 194* GLUCOSE, POC mg/dL 134* 126* -- < > -- < > -- < > -- < > -- < > -- EGFR -- -- 37* -- 42* -- 45* -- 48* < > 52* -- 45* ALBUMIN g/dL -- -- -- -- -- -- -- -- 2.3* -- 2.6* -- 2.4* PROTEIN, TOTAL g/dL -- -- -- -- -- -- -- -- 5.5* -- 6.1* -- 5.7* BILIRUBIN TOTAL mg/dL -- -- -- -- -- -- -- -- <0.2* -- 0.2 -- 0.2 ALK PHOS U/L -- -- -- -- -- -- -- -- 226* -- 220* -- 270* ALT U/L -- -- -- -- -- -- -- -- 24 -- 29 -- 31 AST U/L -- -- -- -- -- -- -- -- 24 -- 28 -- 50 < > = values in this interval not displayed. Lab Results Component Value Date MG 2.1 11/10/2024 Results from last 7 days Lab Units 11/10/24 0004 11/09/24 0150 11/08/24 0005 11/07/24 0813 11/06/24 0458 WHITE BLOOD CELL COUNT Thou/uL 13.5* 11.9* 13.1* < > 11.9* HEMOGLOBIN g/dL 7.6* 7.7* 7.9* < > 8.7* HEMATOCRIT % 25.2* 24.9* 25.6* < > 27.9* PLATELET COUNT Thou/uL 445 405 378 < > 346 NEUTROS PCT % -- -- -- -- 88.8 LYMPHS PCT % -- -- -- -- 3.4 MONOS PCT % -- -- -- -- 6.6 EOS PCT % -- -- -- -- 0.0 BASOS PCT % -- -- -- -- 0.1 < > = values in this interval not displayed. Lab Results Component Value Date HSTNT 26 (H) 11/08/2024 HSTNT 29 (H) 11/07/2024 HSTNT 26 (H) 11/07/2024 Lab Results Component Value Date PROBNP 4,654 (H) 11/09/2024 Lab Results Component Value Date HGBA1C 8.7 (H) 09/03/2024 Imaging Studies All appropriate imaging studies within the past 24 hours reviewed (actual images) Echo 11/04/2024: The left ventricle is mildly dilated. Left ventricular systolic function is mildly decreased. The quantitative EF is 43% by 3D imaging, and 46% by 2D Martinez biplane. The right ventricle is dilated. Right ventricular systolic function is normal. A pacer wire is present in the right ventricle. Right atrial cavity is severely dilated. A pacemaker wire is present in the right atrium. The mitral leaflets are moderately thickened. There is moderate to severe mitral regurgitation. Cannot rule out vegetation on the mitral valve leaflets. There is moderate tricuspid regurgitation. The estimated right ventricular systolic pressure is 44 mmHg. There is mild aortic regurgitation. The pulmonic valve was not well visualized. Compared to previous outside study report from [facility] on 08/05/2024, Mitral and tricuspid regurgitation were not previously reported. Recommend transesophageal echocardiogram if clinically indicated. Signed POOJA Jimenez 11/10/2024 10:45 AM * Juany Ospina RN - 11/10/2024 10:00 AM ESTSummary: Nurse Navigator Note Ortho Trauma Nurse Navigator Rounding Note Attempted to meet with patient, however, patient was sleeping. Patient has been previously providedwith nurse navigator's direct contact information to contact with any questions or concerns. Will attempt to visit with patient again later today. * Olimpia Lainez PharmD - 11/10/2024 9:09 AM EST Patient: Blas Genao Date: 11/10/24 Pain Management - Follow-Up Assessment: Blas Genao is a 63 year old male s/p L BKA POD#5. The patient was sitting up in bed awake and alert at the time of interview. The patient stated he still has pain from the amputation site which he describes as a consistent throbbing pain, rating it a 6/10. However, overall he felt his pain has been controlled on the current regimen and he see's a significant improvement in his pain. He mentions he is now able to move his left leg and previously was not able to. His pain worsened while changing his compression stocking yesterday and worsened to a 9/10, received 1 dose of Dilaudid 4 mg PO and his pain went down to a 4-5/10. Per provider note, patient has intermitted hand jerking/tremors but was not appreciated during my evaluation this morning. He states he has been able to sleep but wakes up in throbbing pain. BP is normal to slightly hypertensive, Scr is currently 2.0 from 1.8 yesterday, and LFTs are stable. Current Pain Medications Tylenol 975 mg PO Q6h Robaxin 1000 mg PO 4x/day Lyrica 150 mg PO TID Dilaudid 2 mg PO Q3h prn pain 4-6; x0 in 24h Dilaudid 4 mg PO Q3h prn pain 7-10; x1 in 24h Plan: Continue Tylenol 975 mg PO Q6h Continue Robaxin 1000 mg PO 4x/day Continue Lyrica 150 mg PO TID Patient was alert and awake this morning, and denies any drowsiness or sedation. Given the TABITHA on CKD, there is concern for accumulation from pregabalin. If patient has signs of sedation or if tremors return, consider reducing the dose or hold the Lyrica. Continue Dilaudid 2-4 mg PO Q3h prn Olimpia Lainez, FanyD * Ewelina Ruiz PA-C - 11/10/2024 9:04 AM EST Orthopedic Progress Note Principal Problem: Acute osteomyelitis of left calcaneus (HCC) (POA: Yes) Active Problems: HTN (hypertension) (POA: Yes) A-fib (HCC) (POA: Yes) PAD (peripheral artery disease) (POA: Yes) MERVIN on CPAP (POA: Yes) Diabetes (HCC) (POA: Yes) Stage 3a chronic kidney disease (CKD) (HCC) (POA: Yes) Hyperlipidemia (POA: Yes) Smoker (POA: Yes) Chronic diastolic congestive heart failure (HCC) (POA: Yes) Osteomyelitis (HCC) (POA: Yes) CKD (chronic kidney disease) (Chronic) (POA: Yes) Bacteremia (POA: Unknown) Presence of permanent cardiac pacemaker (POA: Unknown) Mitral valve vegetation (POA: Unknown) Mitral valve regurgitation (POA: Unknown) Resolved Problems: Assessment & Plan Assessment: POD#5 s/p L BKA complicated by bacteremia, hypoxia and cardiogenic pulmonary edema Plan: Weightbearing status: NWB LLE, continue ampushield stump protector VTE prophylaxis: Recommend Asa 81 mg BID PT/OT/OOB Pain control: multimodal TATIANNA scheduled for today Appreciate care per primary team, infectious disease Dr. Camejo updated on patient's progress. Subjective No complaints. Reports some continued pain in the LLE but states it is improving. No CP,SOB,N/V. Pain well controlled. Objective Last Vitals: Pulse:60,Resp:20,BP:(!) 145/65,SpO2:92 %,Weight:120 kg (264 lb 8 oz) Temp Last 24 hrs: Temp Min: 96 ??F (35.6 ??C) Max: 97.2 ??F (36.2 ??C) Physical Exam: Alert and oriented x3 in NAD. Amp[place] stump protector in place. Dressing/sleeve c/d/I. Labs: Recent Labs 11/10/24 0004 HCT 25.2* HGB 7.6* CREAT 2.0* Sign Ewelina Ruiz PA-C 11/10/2024 9:07 AM * Nani Hollis PA-C - 11/10/2024 7:22 AM EST Critical Care Progress Note Subjective Overnight events - Remains on bumex gtt - 6LNC overnight - Made NPO at midnight with plan for possible TATIANNA today Assessment & Plan Assessment Patient is a 63 y.o. 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 Patient underwent L BKA with intraoperative cultures growing MRSA, Enterococcus faecalis, VRE, corynebacterium species and gram negative bacilli. His course has been complicated with bacteremia and concern for mitral valve/pacer lead endocarditis. He developed hypoxic respiratory failure requiring CPAP and was admitted to Step Down. Principal Problem: Acute osteomyelitis of left calcaneus (HCC) Active Problems: HTN (hypertension) A-fib (HCC) PAD (peripheral artery disease) MERVIN on CPAP Diabetes (HCC) Stage 3a chronic kidney disease (CKD) (HCC) Hyperlipidemia Smoker Chronic diastolic congestive heart failure (HCC) Osteomyelitis (HCC) CKD (chronic kidney disease) Bacteremia Presence of permanent cardiac pacemaker Mitral valve vegetation Mitral valve regurgitation LOS: 8 days Plan by system Neuro: Phantom limb pain, Hx. Alcohol use disorder - Mental status: A+Ox3, follows commands and participates appropriately in exam - Last drink 11/02, no tox screen done on admission - Continue scheduled tylenol 975mg Q6h for pain, Robaxin 1000 mg QID, Lyrica 150 mg TID - Continue Dilaudid 2 mg Q3h PRN for moderate pain, 4 mg q3h PRN for severe pain - Continue home bupropion 150mg BID, Aricept 10mg daily - Continue melatonin 3 mg nightly PRN - Continue cholecalciferol, folic acid, multivitamin, thiamine, cyanocobalamin - Anesthesia had been consulted for pain control; patient refused nerve block, pain well controlled - Neurovascular checks q8h - MRI brain ordered to rule out septic emboli CT Head (11/07): 1. No acute intracranial process or abnormal intracranial enhancement. If there is a high clinical index of suspicion for acute embolic infarction, and it would alter patient management, consider MR brain, if possible. 2. Mild microvascular white matter ischemic changes. Resp: Acute hypoxic respiratory failure 2/2 volume overload, Hx. MERVIN on CPAP, smoker - SPO2: 90-98% on 6LNC, intermittently uses nocturnal CPAP - VBG (11/08): 7.35/49/45/28 on 6LNC - Continue bumex gtt @1 with spot push dose as needed for goal net negative 1-2L (-1L/24hr) - Continue Duonebs PRN - Continue nicotine patch CXR 11/08: 1. Right internal jugular central venous catheter tip overlying the cavoatrial junction. 2. Hazy opacities in the bilateral lungs, most pronounced in the upper lung ta bilaterally. Attending note: Interval worsening of bilateral upper lung field airspace opacities as compared to the prior study. CV: Concern for mitral and pacer endocarditis, CHF exacerbation, Hx. CHF, HTN, HLD, Afib/Aflutter s/p watchman procedure, AVB s/p PPM, PAD/PVD - HR 60s, SBP 130-150s - proBNP 4654 (4241) - HS Trop 26 (29, peak) - Continue home amiodarone 200 mg daily, Norvasc 10 mg daily, lopressor 50 mg BID - Continue ASA 81mg BID x3 weeks per ortho recs - refusing nighttime dose, will inform ortho - Hold pravastatin while on daptomycin - Hold Jardiance while inpatient - TTE could not confirm endocarditis, plan for TATIANNA. Delayed again today as anesthesia would like him to be diuresed more and optimized from a respiratory standpoint, though no specific goal was mentioned - Repeat CXR and proBNP in AM to evaluate respiratory status for anesthesia - Cardiology following - they plan to evaluate volume status later today with worsening renal function with diuresis - CT surgery consult pending TATIANNA - EP consulted for concern for infected PPM, further plan based on results of TATIANNA TTE 11/04: The left ventricle is mildly dilated. Left ventricular systolic function is mildly decreased. The quantitative EF is 43% by 3D imaging, and 46% by 2D Martinez biplane. The right ventricle is dilated. Right ventricular systolic function is normal. A pacer wire is present in the right ventricle. Right atrial cavity is severely dilated. A pacemaker wire is present in the right atrium. The mitral leaflets are moderately thickened. There is moderate to severe mitral regurgitation. Cannot rule out vegetation on the mitral valve leaflets. There is moderate tricuspid regurgitation. The estimated right ventricular systolic pressure is 44 mmHg. There is mild aortic regurgitation. The pulmonic valve was not well visualized. Compared to previous outside study report from [facility] on 08/05/2024, Mitral and tricuspid regurgitation were not previously reported. Recommend transesophageal echocardiogram if clinically indicated. GI: Hx. GERD - Diet: Will resume diabetic/calorie controlled, renal, and cardiac diet - LFTs WNL except alk phos 226, monitor every 3 days while on daptomycin - Continue home protonix 40mg daily - Continue PRN Tums and Zofran - Stool output: x1/24h, continue bowel regimen + PRN Renal: TABITHA on CKD III, Hyponatremia likely 2/2 hypervolemia (resolved), Hx CKDIIIa - BUN/Cr 56/2 (46/1.8) (Baseline Cr 1.0-1.3) - Phos 5.6 (5.2) - CK 91 (49) - monitor while on daptomycin every 3 days - Will continue diuresis as above and monitor kidney function closely - Continue calcium citrate BID - I/O: UOP 2.6 L, -1L/24hr, net +4.9L Intake & Output Intake/Output Summary (Last 24 hours) at 11/10/2024 0722 Last data filed at 11/10/2024 0600 Gross per 24 hour Intake 1596 ml Output 2600 ml Net -1004 ml Endo: hyperglycemia, Hx. 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), MRSA and Enterococcus faecalis/faecium bacteremia, presumed endocarditis - Afebrile - WBC 13.5 (11.9) - Procal 0.40 - Respiratory viral panel negative - Blood cultures 11/02: MRSA, Enterococcus faecalis/faecium - Blood cultures 11/04: MRSA - Blood cultures 11/06: sterile to date - Blood cultures 11/07: sterile to date - MRSA 11/03: negative - Left leg tissue/bone pathology 11/05: pending - S/p Meropenem (11/03-11/05) - Continue Daptomycin (11/03-) Ceftaroline (11/05-) and Aztreonam (11/07-) per ID - Orthopedics following Vascular access: PIV, right IJ Mobility: Progressive Mobility Level Achieved: Level 0,PT/OT: Yes GI PPx: Home PPI DVT PPx: SC Heparin VTE Time Out Orthopedics & NeuroSurgery VTE risk stratification: Standard or low risk (11/05/2024 12:44 PM)VTErisk low and NOT reassessed in last 5 days - Click here to document Chemical Prophylaxis heparin (porcine) 5000 unit/mL injection 5,000 Units Subcutaneous Every 8 hours scheduled Heparin Sodium (Porcine) 5000 Units Last dose 11/10/2024 5:50 AM Mechanical Prophylaxis SCDs are ordered - RIGHT (Knee High) Patient declined SCD use, Please review IMPROVE SCORE: Drips: bumetanide, 1 mg/hr, Last Rate: 1 mg/hr (11/10/24 0600) Lines: Central Line - Triple Lumen (Adult) 11/08/24 1900 internal jugular vein, right (Active) Number of days: 2 Peripheral IV - Single Lumen (Adult) 11/08/24 0029 cephalic vein (lateral side of arm), right 20 gauge (Active) Number of days: 2 Enteric Access and Soto: Restraints: None Code: Full Dispo: SD, per Dr. Martin Objective Last Vitals: Pulse:60, Resp:20, BP:BP Min: 131/60 Max: 150/79 MAP: SpO2:(!) 90 % CVP: Temp Last 24 hrs: Temp Min: 96.6 ??F (35.9 ??C) Max: 97.2 ??F (36.2 ??C) Physical Exam: General appearance: Adult male laying in bed with nasal cannula in place, in no acute distress Lungs: CTA without wheezing or rhonchi Heart: RRR S1S2, murmur present Abdomen: +BS, soft protuberant abdomen, non-tender to palpation Extremities: No lower extremity edema, left lower extremity with BKA, right lower extremity with all toes amputated Neurologic: A+Ox3, no focal deficits, no tremor or fasciculations noted Labs: Recent Labs 11/07/24 0813 11/08/24 0005 11/09/24 0150 11/10/24 0004 WBC 12.4* 13.1* 11.9* 13.5* HGB 8.9* 7.9* 7.7* 7.6* HCT 28.9* 25.6* 24.9* 25.2* PLT 430 378 405 445 MCV 92 91 92 92 MCH 28.2 27.9 28.3 27.6 MCHC 30.8 30.9 30.9 30.2 RDW 16.7* 16.9* 17.1* 17.2* Recent Labs 11/07/24 0813 11/07/24 1236 11/07/24 1612 11/08/24 0005 11/08/24 1746 11/09/24 0150 11/10/24 0004 BUN 47* -- 47* 48* 45* 46* 56* CREAT 1.5* -- 1.6* 1.6* 1.7* 1.8* 2.0* NA 129* -- 131* 133* 141 139 135* K 3.9 -- 3.7 3.8 3.3* 3.6 3.8 CO2 22 22 21* 21* 26 25 24 CL 94* -- 98 98 102 101 100 MG 2.3 -- 2.2 2.0 1.9 2.3 2.1 PHOS 4.3 -- 4.7* 5.2* 4.9* 5.2* 5.6* AST 28 -- -- 24 -- -- -- ALT 29 -- -- 24 -- -- -- PROT 6.1* -- -- 5.5* -- -- -- No results for input(s): PT , PTT , INR in the last 72 hours. Medications Medication/MAR Report: Medications Scheduled Medication Ordered Dose/Rate, Route, Frequency Last Action acetaminophen (TYLENOL) tablet 975 mg 975 mg, PO, Q6H JUDSON Given During Downtime, 975 mg at 11/10 0407 amiODARONE (PACERONE) tablet 200 mg 200 mg, PO, Daily Ordered amLODIPine (NORVASC) tablet 10 mg 10 mg, PO, Daily Given, 10 mg at 11/09 910 aspirin enteric coated (ECOTRIN LOW STRENGTH) tablet 81 mg 81 mg, PO, Q12H JUDSON Given, 81 mg at 11/09 913 aztreonam (AZACTAM) 2 g in sodium chloride-MBP (NS) 100 mL IVPB-MBP 2 g, IV, Q8H New Bag, 2 g at 11/10 0550 buPROPion (WELLBUTRIN SR) 12 hr tablet 150 mg 150 mg, PO, BID Given, 150 mg at 11/09 2028 calcium citrate (CALCITRATE) tablet 950 mg 950 mg, PO, BID with meals Given, 950 mg at 11/09 164 ceftaroline (TEFLARO) 600 mg in sodium chloride (NS) 0.9 % 250 mL IVPB-WTD 600 mg, IV, Q8H Given, 600 mg at 11/10 0155 chlorhexidine gluconate 2 % wipes - central line CHG application No Dose/Rate, TOP, Daily Given, 1 each at 11/09 924 cholecalciferol tablet 2,000 Units 2,000 Units, PO, Daily Given, 2,000 Units at 11/09 906 cyanocobalamin (VITAMIN B-12) tablet 2,500 mcg 2,500 mcg, PO, Daily Given, 2,500 mcg at 11/09 912 DAPTOmycin (CUBICIN) 975 mg in sodium chloride (NS) 0.9 % 50 mL IVPB 10 mg/kg, IV, Q24H Stopped, 11/09 161 donepezil (ARICEPT) tablet 10 mg 10 mg, PO, QAM Given, 10 mg at 11/09 914 [Provider Held] empagliflozin (JARDIANCE) 25 mg On hold since Fri11/04/2024 at 1503 until manually unheld; held by Juaquin Kern MDHold Reason: Pre-procedure On hold since Fri11/04/2024 at 1503 until manually unheld (Needs Review) Hold reason: Pre-procedure 25 mg, PO, Daily Given, 25 mg at 11/04 0756 folic acid (FOLVITE) tablet 1 mg 1 mg, PO, Daily Given, 1 mg at 11/09 911 [Provider Held] glimepiride (AMARYL) tablet 2 mg On hold since Lennie 11/04/2024 at 1503 until manually unheld; held by Gayle Rey Reason: Pre-procedure On hold since Fri11/04/2024 at 1503 until manually unheld (Needs Review) Hold reason: Pre-procedure 2 mg, PO, Daily with breakfast Given, 2 mg at 11/04 0757 heparin (porcine) 5000 unit/mL injection 5,000 Units 5,000 Units, SC, Q8H JUDSON Given, 5,000 Units at 11/10 0550 insulin lispro (HumaLOG/ADMELOG) 100 units/mL injection 1-11 Units 1-11 Units, SC, TID with meals Given, 5 Units at 11/09 1644 insulin lispro (HumaLOG/ADMELOG) 100 units/mL injection 1-4 Units 1-4 Units, SC, NIGHTLY & 2AM Ordered insulin lispro (HumaLOG/ADMELOG) 100 units/mL injection 5 Units 5 Units, SC, TID with meals Given, 5 Units at 11/09 1313 [Provider Held] metFORMIN (GLUCOPHAGE) tablet 500 mg On hold since Fri11/04/2024 at 1503 until manually unheld; held by Juaquin Kern MDHold Reason: Pre-procedure On hold since Fri11/04/2024 at 1503 until manually unheld (Needs Review) Hold reason: Pre-procedure 500 mg, PO, Daily with breakfast Given, 500 mg at 11/04 0756 methocarbamol (ROBAXIN) tablet 1,000 mg 1,000 mg, PO, 4x Daily Given, 1,000 mg at 11/09 2028 metoPROLOL TARTRATE (LOPRESSOR) tablet 50 mg 50 mg, PO, BID Given, 50 mg at 11/09 2028 multivitamin with minerals tablet 1 tablet 1 tablet, PO, Daily Given, 1 tablet at 11/09 911 nicotine (NICODERM CQ) 21 MG/24HR patch 1 patch 1 patch, TD, Daily Patch Applied, 1 patch at 11/09 912 PANTOprazole (PROTONIX) EC tablet 40 mg 40 mg, PO, Daily Given, 40 mg at 11/09 09 [Provider Held] pravastatin (PRAVACHOL) tablet 20 mg On hold since Fri11/03/2024 at 0850 until manually unheld; held by Gayle Rose Reason: Other - Comment requiredHold Comments: While on IV daptomycin On hold since Fri11/03/2024 at 0850 until manually unheld (Needs Review) Hold reason: Other - Comment required, Hold comment: While on IV daptomycin 20 mg, PO, Daily Ordered pregabalin (LYRICA) capsule 150 mg 150 mg, PO, TID Given, 150 mg at 11/09 2028 senna-docusate (SENNA-S) 8.6-50 MG tablet 2 tablet 2 tablet, PO, BID Given, 2 tablet at 11/09 2028 sodium chloride (NS) 0.9 % infusion - ADS Override Pull No Dose/Rate Ordered thiamine mononitrate (VITAMIN B-1) tablet 200 mg 200 mg, PO, Daily Given, 200 mg at 11/09 911 Continuous Medication Ordered Dose/Rate, Route, Frequency Last Action bumetanide (BUMEX) IV infusion 12.5 mg in 50 mL 1 mg/hr, IV, Continuous Rate/Dose Verify, 1 mg/hr at 11/10 0600 PRN Medication Ordered Dose/Rate, Route, Frequency Last Action bisacodyl (DULCOLAX) EC tablet 5 mg 5 mg, PO, Daily PRN Ordered bisacodyl (DULCOLAX) suppository 10 mg 10 mg, RE, Daily PRN Ordered calcium carbonate (TUMS) chewable tablet 1,000 mg 1,000 mg, PO, Q12H PRN Ordered dextrose 50 % solution 12.5 g (Or Linked Group #1) 12.5 g, IV, Q15 Min PRN Ordered dextrose 50 % solution 25 g (Or Linked Group #1) 25 g, IV, Q15 Min PRN Ordered glucagon (GLUCAGEN) injection 1 mg (Or Linked Group #1) 1 mg, IM, Daily PRN Ordered glucose (GLUTOSE 15) 40 % oral gel 37.5 g (Or Linked Group #1) 1 Tube, PO, Q15 Min PRN Ordered glucose (GLUTOSE 15) 40 % oral gel 75 g (Or Linked Group #1) 2 Tube, PO, Q15 Min PRN Ordered HYDROmorphone (DILAUDID) tablet 2 mg 2 mg, PO, Q3H PRN Given, 2 mg at 11/07 1824 HYDROmorphone (DILAUDID) tablet 4 mg 4 mg, PO, Q3H PRN Given, 4 mg at 11/09 1328 ipratropium-albuterol (DUONEB) 0.5-2.5 mg/3 mL nebulizer solution 3 mL 3 mL, NEBULIZATION, Q2H PRN Given, 3 mL at 11/07 1025 lactulose (ENULOSE) 10 gm/15 mL solution 20 g 20 g, PO, Q4H PRN Ordered magnesium hydroxide (MILK OF MAGNESIA) 400 mg/5 mL suspension 30 mL 30 mL, PO, Q12H PRN Ordered melatonin tablet 3 mg 3 mg, PO, Nightly PRN Given, 3 mg at 11/08 220 mineral oil (FLEET OIL) enema 1 enema 1 enema, RE, Daily PRN Ordered naloxone (NARCAN) 0.4 mg/mL injection 0.4 mg 0.4 mg, IV, Q5 Min PRN Ordered ondansetron (ZOFRAN) injection 4 mg 4 mg, IV, Q6H PRN Ordered polyethylene glycol (miraLAx) packet 17 g 17 g, PO, Daily PRN Ordered Sign: Nani Hollis PA-C 11/10/2024 7:22 AM * Shay Martin MD - 11/10/2024 7:04 AM EST Images from the original note were not included. Division of Pulmonary, Critical Care, and Sleep Medicine [address] [place] [address], [address], [place] [address] Critical Care Progress Note Assessment & Plan Blas Genao is a 63 y.o. male with past medical history of HFrEF (EF 43%), AVB s/p PPM, A-fib/flutter s/p watchman's procedure, hyperlipidemia, hypertension, MERVIN on CPAP, CKD stage III, PAD/PVD initially presented for left 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 and then s/p calcaneal ostectomy 09/21 with wound VAC placement, BKA 11/05 (wound culture with MRSA, Enterococcus faecalis, VRE, chronic bacterium species), hospital course complicated by VRE/Enterococcus faecalis and MRSA bacteremia. Patient was placed on aztreonam, daptomycin and ceftaroline (TTE could not rule out vegetations but with suspicion of pacemaker lead and MV endocarditis). Patient was admitted to the ICU for rescue BiPAP in the setting of hypoxic respiratory failure secondary to acute pulmonary edema/volume overload/CHF exacerbation. 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 TABITHA on CKD stage III Left calcaneal osteomyelitis s/p BKA Hypervolemic hyponatremia Phantom limb pain Comorbid Conditions: Alcohol use disorder Hx of HFrEF (EF 43% AVB s/p PPM A-fib/flutter s/p watchman's procedure Hyperlipidemia Hypertension MERVIN on CPAP therapy PAD/PVD Total LOS: 8 days Plan by system Neuro: CAM: CAM-ICU Delirium Present: Negative Ferreira Agitation Sedation Scale (RASS) / Modified RASS: -1-->Wakes easily, drowsy Continue Tylenol and Robaxin for pain Dilaudid as needed Continue bupropion, Aricept, Lyrica Melatonin as needed for insomnia Anesthesia consult for pain control CT head pending to rule out septic emboli Neurovascular checks Q8 hourly Resp: Continue oxygen supplementation for goal sats >92% Follow-up ABG 7.38// Continue diuresis DuoNeb as needed Slight worsening of bilateral upper lobe infiltrates CV: Continue bumetanide infusion at 1 mg/h Goal net -1-2 L 24 hours Continue ASA, amiodarone, Norvasc, Lopressor Holding pravastatin while on daptomycin Holding Jardiance while inpatient TATIANNA on hold due to oxygen needs Follow-up CT surgery consult/recommendations Follow-up with EP consult/recommendations for infected PPM >Echo: 11/04/2024 The left ventricle is mildly dilated. Left ventricular systolic function is mildly decreased. The quantitative EF is 43% by 3D imaging, and 46% by 2D Martinez biplane. The right ventricle is dilated. Right ventricular systolic function is normal. A pacer wire is present in the right ventricle. Right atrial cavity is severely dilated. A pacemaker wire is present in the right atrium. The mitral leaflets are moderately thickened. There is moderate to severe mitral regurgitation. Cannot rule out vegetation on the mitral valve leaflets. There is moderate tricuspid regurgitation. The estimated right ventricular systolic pressure is 44 mmHg. There is mild aortic regurgitation. The pulmonic valve was not well visualized. Compared to previous outside study report from [facility] on 08/05/2024, Mitral and tricuspid regurgitation were not previously reported. Recommend transesophageal echocardiogram if clinically indicated. GI: Keep n.p.o. while on BiPAP Trend LFTs Bowel regimen >Nutrition: Diet/Nutrition Received: NPO Patient to receive supplements: three times a day - with meals; Order: Glucerna Therapeutic Shake, Chocolate, 8 oz Diet NPO; Meds Renal: Monitor renal function and urine output Monitor electrolytes Calcium citrate Monitor CK while on daptomycin Trend serum sodium >Intake & Output Intake/Output Summary (Last 24 hours) at 11/10/2024 0704 Last data filed at 11/10/2024 0600 Gross per 24 hour Intake 1596 ml Output 2600 ml Net -1004 ml Endo: Continue fingersticks every 4 while on BiPAP and n.p.o. ISS Lantus Last HB A1c 8.7 (09/21) Hypoglycemia protocol Heme/Onc: Normocytic anemia Daily CBC ID: Left calcaneal osteomyelitis s/p BKA MRSA/Enterococcus faecalis bacteremia Presumed endocarditis Continue daptomycin, ceftaroline, aztreonam Blood cultures 11/02: MRSA, Enterococcus faecalis/faecium Blood cultures 11/04: MRSA Blood cultures 11/06: NGTD Blood cultures 11/07: NGTD Infectious disease following >Antibiotics: Anti-infectives (From admission, onward) Start Dose/Rate Route Frequency Ordered Stop 11/07/24 1700 aztreonam (AZACTAM) 2 g in sodium chloride-MBP (NS) 100 mL IVPB-MBP 2 g 33.3 mL/hr over 3 Hours Intravenous Every 8 hours 11/07/24 1658 11/05/24 1100 ceftaroline (TEFLARO) 600 mg in sodium chloride (NS) 0.9 % 250 mL IVPB-WTD 600 mg 250 mL/hr over 60 Minutes Intravenous Every 8 hours 11/05/24 1040 11/03/24 0900 DAPTOmycin (CUBICIN) 975 mg in sodium chloride (NS) 0.9 % 50 mL IVPB 10 mg/kg ?? 97.3 kg (Adjusted) 139 mL/hr over 30 Minutes Intravenous Every 24 hours 11/03/24 0849 Drips: bumetanide, 1 mg/hr, Last Rate: 1 mg/hr (11/10/24 0600) Lines: Central Line - Triple Lumen (Adult) 11/08/24 1900 internal jugular vein, right (Active) Number of days: 2 Peripheral IV - Single Lumen (Adult) 11/08/24 0029 cephalic vein (lateral side of arm), right 20 gauge (Active) Number of days: 2 Evaluation for Central line access removal was discussed today on rounds. If central line was no longer needed, then it would be removed. Indication for keeping central line: Restraints: Mobility: Progressive Mobility Level Achieved: Level 0 Soto: Evaluation for removal of Soto was discussed today on rounds. If no longer indicated, then it would be removed. Indication for keeping Soto: GI Prophylaxis (if needed): PPI DVT Prophylaxis: SCD Use: Device is properly applied and functional, CODE STATUS: Full code DISPOSITION: SDU I provided 35 minutes of Critical Care time evaluating, providing care and managing this criticallyill/injured patient. I affirm that this patient is critically ill and at high risk for sudden, fatal deterioration due to one or more of the above active issues. I managed/supervised life- or organ-supporting interventions that require frequent physician assessment and reassessment. Critical care time was spent, but not limited to, the review of laboratory test results, medications, relevant radiology and discussing this critically ill patient's care with other medical staff in the unit or at the nursing station [facility] floor where the patient is located. My full attention was given to the management of this patient and I was immediately available during this same time. This time did not include any separate billable procedures. Subjective/Overnight No acute overnight issues. Continued on 6 L nasal cannula. Was on nocturnal CPAP. Objective SpO2:(!) 90 %,O2 Device: nasal cannula, Flow (L/min) (Oxygen Therapy): 6 O2 Flow Rate (L/min): 6, Temp Last 24 hrs: Temp Min: 96.6 ??F (35.9 ??C) Max: 97.2 ??F (36.2 ??C) WBC Trend White Blood Cell Count Date Value Ref Range Status 11/10/2024 13.5 (H) 4.0 - 11.0 Thou/uL Final 11/09/2024 11.9 (H) 4.0 - 11.0 Thou/uL Final 11/08/2024 13.1 (H) 4.0 - 11.0 Thou/uL Final 11/07/2024 12.4 (H) 4.0 - 11.0 Thou/uL Final Last Vitals: Pulse:60, Resp:20, BP:BP Min: 131/60 Max: 150/79 MAP: Physical Exam: General: alert, appears stated age and cooperative HEENT: supple without LAD Lungs: clear to auscultation bilaterally Chest wall: no tenderness Heart: regular rate and rhythm, S1, S2 normal, no murmur, click, rub or gallop Abdomen: soft, non-tender; bowel sounds normal; no masses, no organomegaly Extremities: atraumatic, no cyanosis or edema Neuro: non focal Skin: Warm, no rash Intake & Output: I/O last 3 completed shifts: In: 2031 [P.O.:1440; I.V.:242; IV Piggyback:350] Out: 3300 [Urine:3300] Intake/Output Summary (Last 24 hours) at 11/10/2024 0704 Last data filed at 11/10/2024 0600 Gross per 24 hour Intake 1596 ml Output 2600 ml Net -1004 ml Procedures: Surgical/Procedural Cases on this Admission Case IDs Date Procedure Surgeon Location Status [id number] 11/05/24 LEFT BELOW KNEE AMPUTATION Dallas Camejo MD [facility] OR Comp Medications: Medication/MAR Report: Medications Scheduled Medication Ordered Dose/Rate, Route, Frequency Last Action acetaminophen (TYLENOL) tablet 975 mg 975 mg, PO, Q6H JUDSON Given During Downtime, 975 mg at 11/10 0407 amiODARONE (PACERONE) tablet 200 mg 200 mg, PO, Daily Ordered amLODIPine (NORVASC) tablet 10 mg 10 mg, PO, Daily Given, 10 mg at 11/09 910 aspirin enteric coated (ECOTRIN LOW STRENGTH) tablet 81 mg 81 mg, PO, Q12H JUDSON Given, 81 mg at 11/09 913 aztreonam (AZACTAM) 2 g in sodium chloride-MBP (NS) 100 mL IVPB-MBP 2 g, IV, Q8H New Bag, 2 g at 11/10 0550 buPROPion (WELLBUTRIN SR) 12 hr tablet 150 mg 150 mg, PO, BID Given, 150 mg at 11/09 2028 calcium citrate (CALCITRATE) tablet 950 mg 950 mg, PO, BID with meals Given, 950 mg at 11/09 1643 ceftaroline (TEFLARO) 600 mg in sodium chloride (NS) 0.9 % 250 mL IVPB-WTD 600 mg, IV, Q8H Given, 600 mg at 11/10 0155 chlorhexidine gluconate 2 % wipes - central line CHG application No Dose/Rate, TOP, Daily Given, 1 each at 11/09 924 cholecalciferol tablet 2,000 Units 2,000 Units, PO, Daily Given, 2,000 Units at 11/09 906 cyanocobalamin (VITAMIN B-12) tablet 2,500 mcg 2,500 mcg, PO, Daily Given, 2,500 mcg at 11/09 912 DAPTOmycin (CUBICIN) 975 mg in sodium chloride (NS) 0.9 % 50 mL IVPB 10 mg/kg, IV, Q24H Stopped, 11/09 161 donepezil (ARICEPT) tablet 10 mg 10 mg, PO, QAM Given, 10 mg at 11/09 914 [Provider Held] empagliflozin (JARDIANCE) 25 mg On hold since Fri11/04/2024 at 1503 until manually unheld; held by Gayle Rey Reason: Pre-procedure On hold since Fri11/04/2024 at 1503 until manually unheld (Needs Review) Hold reason: Pre-procedure 25 mg, PO, Daily Given, 25 mg at 11/04 075 folic acid (FOLVITE) tablet 1 mg 1 mg, PO, Daily Given, 1 mg at 11/09 911 [Provider Held] glimepiride (AMARYL) tablet 2 mg On hold since Fri11/04/2024 at 1503 until manually unheld; held by Gayle Rey Reason: Pre-procedure On hold since Fri11/04/2024 at 1503 until manually unheld (Needs Review) Hold reason: Pre-procedure 2 mg, PO, Daily with breakfast Given, 2 mg at 11/04 075 heparin (porcine) 5000 unit/mL injection 5,000 Units 5,000 Units, SC, Q8H JUDSON Given, 5,000 Units at 11/10 0550 insulin lispro (HumaLOG/ADMELOG) 100 units/mL injection 1-11 Units 1-11 Units, SC, TID with meals Given, 5 Units at 11/09 1644 insulin lispro (HumaLOG/ADMELOG) 100 units/mL injection 1-4 Units 1-4 Units, SC, NIGHTLY & 2AM Ordered insulin lispro (HumaLOG/ADMELOG) 100 units/mL injection 5 Units 5 Units, SC, TID with meals Given, 5 Units at 11/09 1313 [Provider Held] metFORMIN (GLUCOPHAGE) tablet 500 mg On hold since Fri11/04/2024 at 1503 until manually unheld; held by Juaquin Kern MDHold Reason: Pre-procedure On hold since Fri11/04/2024 at 1503 until manually unheld (Needs Review) Hold reason: Pre-procedure 500 mg, PO, Daily with breakfast Given, 500 mg at 11/04 0756 methocarbamol (ROBAXIN) tablet 1,000 mg 1,000 mg, PO, 4x Daily Given, 1,000 mg at 11/09 2028 metoPROLOL TARTRATE (LOPRESSOR) tablet 50 mg 50 mg, PO, BID Given, 50 mg at 11/09 2028 multivitamin with minerals tablet 1 tablet 1 tablet, PO, Daily Given, 1 tablet at 11/09 09 nicotine (NICODERM CQ) 21 MG/24HR patch 1 patch 1 patch, TD, Daily Patch Applied, 1 patch at 11/09 09 PANTOprazole (PROTONIX) EC tablet 40 mg 40 mg, PO, Daily Given, 40 mg at 11/09 0915 [Provider Held] pravastatin (PRAVACHOL) tablet 20 mg On hold since Fri11/03/2024 at 0850 until manually unheld; held by Gayle Rose Reason: Other - Comment requiredHold Comments: While on IV daptomycin On hold since Fri11/03/2024 at 0850 until manually unheld (Needs Review) Hold reason: Other - Comment required, Hold comment: While on IV daptomycin 20 mg, PO, Daily Ordered pregabalin (LYRICA) capsule 150 mg 150 mg, PO, TID Given, 150 mg at 11/09 2028 senna-docusate (SENNA-S) 8.6-50 MG tablet 2 tablet 2 tablet, PO, BID Given, 2 tablet at 11/09 2028 sodium chloride (NS) 0.9 % infusion - ADS Override Pull No Dose/Rate Ordered thiamine mononitrate (VITAMIN B-1) tablet 200 mg 200 mg, PO, Daily Given, 200 mg at 11/09 0912 Continuous Medication Ordered Dose/Rate, Route, Frequency Last Action bumetanide (BUMEX) IV infusion 12.5 mg in 50 mL 1 mg/hr, IV, Continuous Rate/Dose Verify, 1 mg/hr at 11/10 0600 PRN Medication Ordered Dose/Rate, Route, Frequency Last Action bisacodyl (DULCOLAX) EC tablet 5 mg 5 mg, PO, Daily PRN Ordered bisacodyl (DULCOLAX) suppository 10 mg 10 mg, RE, Daily PRN Ordered calcium carbonate (TUMS) chewable tablet 1,000 mg 1,000 mg, PO, Q12H PRN Ordered dextrose 50 % solution 12.5 g (Or Linked Group #1) 12.5 g, IV, Q15 Min PRN Ordered dextrose 50 % solution 25 g (Or Linked Group #1) 25 g, IV, Q15 Min PRN Ordered glucagon (GLUCAGEN) injection 1 mg (Or Linked Group #1) 1 mg, IM, Daily PRN Ordered glucose (GLUTOSE 15) 40 % oral gel 37.5 g (Or Linked Group #1) 1 Tube, PO, Q15 Min PRN Ordered glucose (GLUTOSE 15) 40 % oral gel 75 g (Or Linked Group #1) 2 Tube, PO, Q15 Min PRN Ordered HYDROmorphone (DILAUDID) tablet 2 mg 2 mg, PO, Q3H PRN Given, 2 mg at 11/07 1825 HYDROmorphone (DILAUDID) tablet 4 mg 4 mg, PO, Q3H PRN Given, 4 mg at 11/09 1328 ipratropium-albuterol (DUONEB) 0.5-2.5 mg/3 mL nebulizer solution 3 mL 3 mL, NEBULIZATION, Q2H PRN Given, 3 mL at 11/07 1025 lactulose (ENULOSE) 10 gm/15 mL solution 20 g 20 g, PO, Q4H PRN Ordered magnesium hydroxide (MILK OF MAGNESIA) 400 mg/5 mL suspension 30 mL 30 mL, PO, Q12H PRN Ordered melatonin tablet 3 mg 3 mg, PO, Nightly PRN Given, 3 mg at 11/08 2202 mineral oil (FLEET OIL) enema 1 enema 1 enema, RE, Daily PRN Ordered naloxone (NARCAN) 0.4 mg/mL injection 0.4 mg 0.4 mg, IV, Q5 Min PRN Ordered ondansetron (ZOFRAN) injection 4 mg 4 mg, IV, Q6H PRN Ordered polyethylene glycol (miraLAx) packet 17 g 17 g, PO, Daily PRN Ordered Relevant data reviewed: Hemoglobin, Hematocrit and Platelets Recent Labs 11/07/24 0813 11/08/24 0005 11/09/24 0150 11/10/24 0004 HGB 8.9* 7.9* 7.7* 7.6* HCT 28.9* 25.6* 24.9* 25.2* PLT 430 378 405 445 Electrolytes and Lactate Recent Labs 11/08/24 0005 11/08/24 1746 11/09/24 0150 11/10/24 0004 NA 133* 141 139 135* K 3.8 3.3* 3.6 3.8 CL 98 102 101 100 CO2 21* 26 25 24 ANIONGAP 14 13 13 11 BUN 48* 45* 46* 56* CREAT 1.6* 1.7* 1.8* 2.0* Hepatic Testing Recent Labs 11/07/24 0813 11/08/24 0005 AST 28 24 ALT 29 24 ALKPHOS 220* 226* BILITOT 0.2 <0.2* BILIDIR -- 0.1 ALBUMIN 2.6* 2.3* PROT 6.1* 5.5* Coagulation Studies No results for input(s): PTT , LABPROT , INR in the last 72 hours. ABG Trends Recent Labs 11/07/24 1236 PHA 7.38 PCO2 36 PO2 119* Recent Cultures: Culture Date Value Ref Range Status 11/07/2024 Sterile after 2 days Preliminary 11/07/2024 Sterile after 2 days Preliminary 11/06/2024 Sterile after 3 days Preliminary 11/06/2024 Sterile after 3 days Preliminary 11/04/2024 (A) Final Methicillin Resistant Staph aureus (MRSA) Aerobic bottle positive. Susceptibility of the same isolate identification, from the same apparent body site is only performed once per 5 calendar days. See susceptibilities reported on specimen collected 11/02/2024 11/04/2024 (A) Final Methicillin Resistant Staph aureus (MRSA) Aerobic bottle positive. Susceptibility of the same isolate identification, from the same apparent body site is only performed once per 5 calendar days. See susceptibilities reported on specimen collected 11/02/2024 Imaging Studies: Appropriate radiology imaging was reviewed (actual images) and compared to prior where applicable. Specific /additional concerns as highlighted below if appropriate. CXR 11/07 preliminary read: IMPRESSION: Worsening bilateral upper lung field airspace opacities and bronchial wall thickening compared to prior. CXR 11/04: IMPRESSION: Bilateral reticulonodular opacities concerning for interstitial edema. Superimposed atypical infection cannot be ruled out. This report was generated using [employer] dictation software. Although every attempt has been made by the provider to proofread this document, occasional misspellings and typographical errors may still be present. Sign: Shay Martin MD 11/10/2024 7:04 AM * Tonya Gasca LCSW - 11/09/2024 12:32 PM EST This SW attempted to talk with pt and he was sleeping soundly and did not wake up when I called hisname. Will plan to f/u with him regarding Advance Directives. * Chris Taylor MD - 11/09/2024 11:55 AM EST Images from the original note were not included. Coverage for Dr. Mtz [facility] Progress Note Name: Blas Genao Age: 63 y.o. 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 ID was consulted on 11/03-> recommended to start daptomycin/meropenem given prior history of MDRO's and follow cultures. 1. Acute hypoxic respiratory failure, transferred to stepdown on 11/07 secondary to volume overload 2. Polymicrobial bacteremia: Source was left foot infection/ osteomyelitis. -Source control achieved with left BKA on 11/05 -11/06 ,11/07,blood cultures = NGTD -11/04 (10/31) bld cx: G+ cocci in clusters -11/02(10/31) blood cultures: MRSA, Enterococcus faecalis, Enterococcus faecium -10/27: Left foot wound culture at [place]: MRSA, Enterococcus faecalis, VRE, Corynebacterium species and gram-negative bacilli on Gram stain 3. In the presence of MDR/polymicrobial bacteremia, concern for seeding of pacemaker. He will require PPM extraction -TTE: Left ventricle is mildly dilated, right ventricle is dilated, pacemaker wire in the right atrium, moderately thickened mitral leaflets, moderate to severe mitral regurgitation, cannot rule out vegetation on mitral valve leaflets, moderate tricuspid regurgitation 4. Fever/leukocytosis secondary to bacteremia/left foot infection: Afebrile 5. H/O atrial fibrillation s/p Watchman device implantation in 2018 6. AMS: Improved 7. Vision issues: Resolved 8. TABITHA. Creatinine 1.8 9. Right TMA with chronic wounds 10. Inflammatory markers CRP 29.62, ESR 79 11. Antibiotics -Daptomycin, 11/03 -Meropenem, 11/03-11/05 -Ceftaroline, 11/05 -Aztreonam, 11/07 12. Other labs: -Procalcitonin is 0.40. -CPKs 91, with alkaline phosphatase 226 on 11/08 Plan: -Feeling better, though still requiring oxygen. -Reports intermittent hand jerking/tremors 1. Consider neuro input and MRI head 2. Follow repeat chest x-ray 3. Check CPK/LFTs q3 days while on IV daptomycin 4. Continue daptomycin/ceftaroline 5. Continue aztreonam #3 6. Diuretics as per SD team 7. TATIANNA pending Communicated with stepdown team ANTIBIOTIC TIME OUT Current antibiotic/day of therapy: Anti-infectives (From admission, onward) Start Dose/Rate Route Frequency Ordered Stop 11/07/24 1700 aztreonam (AZACTAM) 2 g in sodium chloride-MBP (NS) 100 mL IVPB-MBP 2 g 33.3 mL/hr over 3 Hours Intravenous Every 8 hours 11/07/24 1658 11/05/24 1100 ceftaroline (TEFLARO) 600 mg in sodium chloride (NS) 0.9 % 250 mL IVPB-WTD 600 mg 250 mL/hr over 60 Minutes Intravenous Every 8 hours 11/05/24 1040 11/03/24 0900 DAPTOmycin (CUBICIN) 975 mg in sodium chloride (NS) 0.9 % 50 mL IVPB 10 mg/kg ?? 97.3 kg (Adjusted) 139 mL/hr over 30 Minutes Intravenous Every 24 hours 11/03/24 0849 OBJECTIVE Physical Examination: Vitals: 11/09/24 1000 BP: 132/60 Pulse: 60 Resp: 15 Temp: SpO2: 94% Weight: Height: General appearance - male On O2 nasal cannula. Able to talk in complete sentences Lungs: Improving air entry bilaterally Cardiovascular: Rate rhythm regular Abdomen: Soft nontender Left BKA stump site in coil winder repair LABORATORY AND DIAGNOSTIC DATA: Lab and imaging data were reviewed by me Results from last 7 days Lab Units 11/09/24 0150 11/08/24 0005 11/07/24 0813 11/06/24 0458 11/04/24 1119 11/02/24 2000 WHITE BLOOD CELL COUNT Thou/uL 11.9* 13.1* 12.4* 11.9* < > 14.3* HEMOGLOBIN g/dL 7.7* 7.9* 8.9* 8.7* < > 9.3* HEMATOCRIT % 24.9* 25.6* 28.9* 27.9* < > 29.3* PLATELET COUNT Thou/uL 405 378 430 346 < > 395 NEUTROS PCT % -- -- -- 88.8 -- 81.9 LYMPHS PCT % -- -- -- 3.4 -- 4.8 MONOS PCT % -- -- -- 6.6 -- 12.2 EOS PCT % -- -- -- 0.0 -- 0.1 BASOS PCT % -- -- -- 0.1 -- 0.4 < > = values in this interval not displayed. Results from last 7 days Lab Units 11/09/24 1147 11/09/24 0729 11/09/24 0150 11/08/24 1958 11/08/24 1746 11/08/24 0203 11/08/24 0005 11/07/24 1229 11/07/24 0813 11/06/24 0751 11/06/24 0458 SODIUM mmol/L -- -- 139 -- 141 -- 133* < > 129* -- 131* POTASSIUM mmol/L -- -- 3.6 -- 3.3* -- 3.8 < > 3.9 -- 3.8 CHLORIDE mmol/L -- -- 101 -- 102 -- 98 < > 94* -- 99 CO2 mmol/L -- -- 25 -- 26 -- 21* < > 22 -- 20* CO2, TOTAL -- -- -- -- -- -- -- < > -- -- -- BUN mg/dL -- -- 46* -- 45* -- 48* < > 47* -- 48* CREATININE mg/dL -- -- 1.8* -- 1.7* -- 1.6* < > 1.5* -- 1.7* CALCIUM mg/dL -- -- 8.2* -- 8.6* -- 7.9* < > 8.3* -- 7.8* GLUCOSE mg/dL -- -- 117* -- 134* -- 231* < > 188* -- 194* GLUCOSE, POC mg/dL 146* 153* -- < > -- < > -- < > -- < > -- EGFR -- -- 42* -- 45* -- 48* < > 52* -- 45* ALBUMIN g/dL -- -- -- -- -- -- 2.3* -- 2.6* -- 2.4* PROTEIN, TOTAL g/dL -- -- -- -- -- -- 5.5* -- 6.1* -- 5.7* BILIRUBIN TOTAL mg/dL -- -- -- -- -- -- <0.2* -- 0.2 -- 0.2 ALK PHOS U/L -- -- -- -- -- -- 226* -- 220* -- 270* ALT U/L -- -- -- -- -- -- 24 -- 29 -- 31 AST U/L -- -- -- -- -- -- 24 -- 28 -- 50 < > = values in this interval not displayed. Lab Results Component Value Date ALT 24 11/08/2024 AST 24 11/08/2024 ALKPHOS 226 (H) 11/08/2024 BILITOT <0.2 (L) 11/08/2024 Results from last 7 days Lab Units 11/05/24 0712 PROTHROMBIN TIME (PT) seconds 15.3* INR 1.3 Creatine Kinase (CK) Date Value Ref Range Status 11/08/2024 91 24 - 204 U/L Final 11/05/2024 49 24 - 204 U/L Final 11/03/2024 61 24 - 204 U/L Final proBNP, N-terminal Date Value Ref Range Status 11/08/2024 4,241 (H) <125 pg/mL Final Lab Results Component Value Date SEDRATE 79 (H) 11/02/2024 Lab Results Component Value Date CRP 29.62 (H) 11/02/2024 Blood Cultures: Lab Results Component Value Date CULTURE Sterile after 2 days 11/07/2024 Urine Cultures: No results found for: CRYSUA , HYALNCSTUA , UROBILINOGEN , BILIUA , BLOODUA , CLARITYUA , COLORUA , UACOMMENT , GLUCU , KETONESUA , LEUKOCYTESUA , NITRITEUA , PHUA , PROTEINUA , RBCUA , SPECIMEN , SPECGRAVUA , SQEPIUA , WBCUA OTHER MICROBIOLOGY: C. Difficile: No results found for: CDIFFTOX , NAP1 Imaging Studies XR Foot 1 view-Left Result Date: 11/02/2024 This exam was performed in office at [facility] and images reviewed by orthopedic provider. Any findings are documented within ambulatory encounter note on date of service. Current Medications: Current Facility-Administered Medications Medication Dose Route Frequency Provider Last Rate Last Admin acetaminophen (TYLENOL) tablet 975 mg 975 mg Oral Q6H JUDSON Chakraborty MD 975 mg at 11/09/24 0914 [START ON 11/10/2024] amiODARONE (PACERONE) tablet 200 mg 200 mg Oral Daily Claire Garibay PA-C amLODIPine (NORVASC) tablet 10 mg 10 mg Oral Daily Rafiq Chakraborty MD 10 mg at 11/09/24 0911 aspirin enteric coated (ECOTRIN LOW STRENGTH) tablet 81 mg 81 mg Oral Q12H JUDSON Rafiq Chakraborty MD 81 mg at 11/09/24 0914 aztreonam (AZACTAM) 2 g in sodium chloride-MBP (NS) 100 mL IVPB-MBP 2 g Intravenous Q8H Chris Taylor MD Stopped at 11/09/24 0754 bisacodyl (DULCOLAX) EC tablet 5 mg 5 mg Oral Daily PRN Rafiq Chakraborty MD bisacodyl (DULCOLAX) suppository 10 mg 10 mg Rectal Daily PRN Rafiq Chakraborty MD bumetanide (BUMEX) IV infusion 12.5 mg in 50 mL 1 mg/hr Intravenous Continuous Rafiq Chakraborty MD 4 mL/hr at 11/09/24 1000 1 mg/hr at 11/09/24 1000 buPROPion (WELLBUTRIN SR) 12 hr tablet 150 mg 150 mg Oral BID Rafiq Chakraborty MD 150 mg at 11/09/24 0912 calcium carbonate (TUMS) chewable tablet 1,000 mg 1,000 mg Oral Q12H PRN Rafiq Chakraborty MD calcium citrate (CALCITRATE) tablet 950 mg 950 mg Oral BID with meals Rafiq Chakraborty MD 950 mg at 11/09/24 0917 ceftaroline (TEFLARO) 600 mg in sodium chloride (NS) 0.9 % 250 mL IVPB-WTD 600 mg Intravenous Q8H Rafiq Chakraborty MD 600 mg at 11/09/24 0959 chlorhexidine gluconate 2 % wipes - central line CHG application Topical Daily Darrell Carcamo PA-C 1 each at 11/09/24 0925 cholecalciferol tablet 2,000 Units 2,000 Units Oral Daily Rafiq Chakraborty MD 2,000 Units at 11/09/24 0907 cyanocobalamin (VITAMIN B-12) tablet 2,500 mcg 2,500 mcg Oral Daily Rafiq Chakraborty MD 2,500 mcg at 11/09/24 0913 DAPTOmycin (CUBICIN) 975 mg in sodium chloride (NS) 0.9 % 50 mL IVPB 10 mg/kg (Adjusted) Intravenous Q24H Rafiq Chakraborty MD Stopped at 11/08/24 1603 glucose (GLUTOSE 15) 40 % oral gel 37.5 g 1 Tube Oral Q15 Min PRN Kayla Orona APRN Or glucose (GLUTOSE 15) 40 % oral gel 75 g 2 Tube Oral Q15 Min PRN Kayla Orona APRN Or dextrose 50 % solution 12.5 g 12.5 g Intravenous Q15 Min PRN Kayla Orona APRN Or dextrose 50 % solution 25 g 25 g Intravenous Q15 Min PRN Kayla Orona APRN Or glucagon (GLUCAGEN) injection 1 mg 1 mg Intramuscular Daily PRN Kayla Orona APRN donepezil (ARICEPT) tablet 10 mg 10 mg Oral QAM Rafiq Chakraborty MD 10 mg at 11/09/24 0915 [Provider Held] empagliflozin (JARDIANCE) 25 mg 25 mg Oral Daily Rafiq Chakraborty MD 25 mg at 11/04/24 0756 folic acid (FOLVITE) tablet 1 mg 1 mg Oral Daily Rafiq Chakraborty MD 1 mg at 11/09/24 0912 [Provider Held] glimepiride (AMARYL) tablet 2 mg 2 mg Oral Daily with breakfast Rafiq Chakraborty MD 2 mg at 11/04/24 0757 heparin (porcine) 5000 unit/mL injection 5,000 Units 5,000 Units Subcutaneous Q8H [facility] Haven Bach APRN HYDROmorphone (DILAUDID) tablet 2 mg 2 mg Oral Q3H PRN Rafiq Chakraborty MD 2 mg at 11/07/24 1825 HYDROmorphone (DILAUDID) tablet 4 mg 4 mg Oral Q3H PRN Rafiq Chakraborty MD 4 mg at 11/09/24 0448 insulin lispro (HumaLOG/ADMELOG) 100 units/mL injection 1-11 Units 1-11 Units Subcutaneous TID withmeals Kayla Orona APRN 1 Units at 11/09/24 0926 insulin lispro (HumaLOG/ADMELOG) 100 units/mL injection 1-4 Units 1-4 Units Subcutaneous NIGHTLY & 2AM Eunice Garrison APRN insulin lispro (HumaLOG/ADMELOG) 100 units/mL injection 5 Units 5 Units Subcutaneous TID with mealsElizagucci Garrison, ASSOCIATE THEATRE PROFESSOR 5 Units at 11/08/24 1746 ipratropium-albuterol (DUONEB) 0.5-2.5 mg/3 mL nebulizer solution 3 mL 3 mL Nebulization Q2H PRN Rafiq Chakraborty MD 3 mL at 11/07/24 1025 lactulose (ENULOSE) 10 gm/15 mL solution 20 g 20 g Oral Q4H PRN Rafiq Chakraborty MD magnesium hydroxide (MILK OF MAGNESIA) 400 mg/5 mL suspension 30 mL 30 mL Oral Q12H PRN Rafiq Chakraborty MD melatonin tablet 3 mg 3 mg Oral Nightly PRN Rafiq Chakraborty MD 3 mg at 11/08/24 2203 [Provider Held] metFORMIN (GLUCOPHAGE) tablet 500 mg 500 mg Oral Daily with breakfast Rafiq Chakraborty MD 500 mg at 11/04/24 0756 methocarbamol (ROBAXIN) tablet 1,000 mg 1,000 mg Oral 4x Daily Rafiq Chakraborty MD 1,000 mg at metoPROLOL TARTRATE (LOPRESSOR) tablet 50 mg 50 mg Oral BID Rafiq Chakraborty MD 50 mg at 11/09/24 0912 mineral oil (FLEET OIL) enema 1 enema 1 enema Rectal Daily PRN Rafiq Chakraborty MD multivitamin with minerals tablet 1 tablet 1 tablet Oral Daily Rafiq Chakraborty MD 1 tablet at naloxone (NARCAN) 0.4 mg/mL injection 0.4 mg 0.4 mg Intravenous Q5 Min PRN Rafiq Chakraborty MD nicotine (NICODERM CQ) 21 MG/24HR patch 1 patch 1 patch Transdermal Daily Rafiq Chakraborty MD 1 patch at 11/09/24 0913 ondansetron (ZOFRAN) injection 4 mg 4 mg Intravenous Q6H PRN Rafiq Chakraborty MD PANTOprazole (PROTONIX) EC tablet 40 mg 40 mg Oral Daily Rafiq Chakraborty MD 40 mg at 11/09/24 0915 polyethylene glycol (miraLAx) packet 17 g 17 g Oral Daily PRN Rafiq Chakraborty MD [Provider Held] pravastatin (PRAVACHOL) tablet 20 mg 20 mg Oral Daily Rafiq Chakraborty MD pregabalin (LYRICA) capsule 150 mg 150 mg Oral TID Rafiq Chakraborty MD 150 mg at 11/09/24 0911 senna-docusate (SENNA-S) 8.6-50 MG tablet 2 tablet 2 tablet Oral BID Rafiq Chakraborty MD 2 tablet at 11/09/24 0913 thiamine mononitrate (VITAMIN B-1) tablet 200 mg 200 mg Oral Daily Rafiq Chakraborty MD 200 mg at 11/09/24 0912 ALLERGIES: Allergies Allergen Reactions Lisinopril Other (See Comments) Dehydration I reviewed the prescribed Medications and new Laboratory Blood Work. Monitor for drug related adverse events. 50 min spent in reviewing records, labs, imaging, coordination and formulation of plan ofcare I reviewed all new Imaging Studies (actual images) and compared to prior where applicable Of note, some information is being carried forward from prior records for informational purposes only and is being cited so that efficiency, safety and quality of this patient's care is not compromised This report was generated using [employer] dictation software. Although every attempt has been made by the provider to proofread this document, occasional misspellings and typographical errors Sign Chris Taylor MD, [facility] Infectious Diseases Available via [employer] 11/09/2024 11:55 AM * Deep Bales, PharmD - 11/09/2024 11:17 AM ESTSummary: Pain Management Patient: Blas Genao Date: 11/09/24 Pain Management Assessment: Blas Genao is a 63 year old male s/p BKA POD#4. The patient was sitting up in bed awake and calmat the time of interview. The patient overall felt their pain has been controlled on the current regimen. The patient does state they still feel pain from the amputation site he described as a throbbing pain. The patient did not describe having an appreciable neuropathic pain or significant muscle s pasms. They patient has not had any n/v. The patient has been able to sleep. The patient is findingrelief with the dilaudid as needed. BP is normal to slightly hypertensive. Scr is currently 1.8. Plan: - The patient is well controlled on the current regimen. Pain has been mostly controlled with reasonable pain expectations post surgery. - I would continue on the current regimen as ordered, however we need to continue to monitor sedation given the TABITHA on CKD with concern for accumulation from pregabalin. At the time of interview, thepatient appears to be alert with no issues. If Scr continues to rise we may need to reduce the doseor hold the pregabalin. - Pharmacy will continue to monitor Deep Bales PharmD * Juany Ospina RN - 11/09/2024 9:30 AM ESTSummary: Nurse Navigator Note Ortho Trauma Nurse Navigator Rounding Note Attempted to meet with patient, however, patient was sleeping soundly. Patient has been previously provided with nurse navigator's direct contact information to contact with any questions or concerns. Will attempt to visit with patient again tomorrow. * Gema Jane APRN - 11/09/2024 9:00 AM EST Images from the original note were not included. 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 male with a past medical history significant for HFrEF (EF 43%), AVB s/p PPM, A-fib/flutter s/p watchman's procedure, hyperlipidemia, hypertension, MERVIN on CPAP, CKD stageIII, PAD/PVD who presented with known left calcaneal osteomyelitis now s/p left BKA on 11/05/2024. Course complicated by VRE/Enterococcus faecalis and MRSA bacteremia. Patient was admitted to the ICU for rescue BiPAP in the setting of hypoxic respiratory failure secondary to acute pulmonary edema/volume overload/CHF exacerbation. Cardiology consulted for preop stratification and echocardiogram with concern for endocarditis withthickened mitral leaflets. He will require further evaluation with TATIANNA. Plan -pending TATIANNA; I have contacted echo lab, procedure is still being deferred due to oxygen requirements -Head CT negative for acute intracranial process or abnormal intracranial enhancement -CT surgery consult pending -EP following as PPM likely seeded as well -ABX per ID -Volume status improving on exam although oxygen requirements remain high (on 6L NC), CXR pending, renal function slightly up today but overall stable, continue bumex infusion 1mg/hr, net negative goal 1-2L/24 hours -Continue ASA, amiodarone 200 mg twice daily, metoprolol tartrate 50 mg twice daily -Holding pravastatin -Strict I/O -Daily weights -Continuous telemetry monitoring Subjective / 24h Events Denies chest pain, reports work of breathing has improved although he remains on 6L NC. He reports intermittent hand tremors which is new for him. He is anxiously waiting for TATIANNA. He reports that he is still holding fluid in his abdomen although it has improved. Objective Telemetry Reviewed: v-paced Last Vitals Pulse:60,Resp:(!) 21,BP:(!) 143/65,SpO2:93 %,Weight:120 kg (264 lb 8 oz) Temp Last 24 hrs: Temp Min: 96.6 ??F (35.9 ??C) Max: 97.8 ??F (36.6 ??C) Intake/Output Summary (Last 24 hours) at 11/09/2024 09 Last data filed at 11/09/2024 0800 Gross per 24 hour Intake 732 ml Output 2200 ml Net -1468 ml Physical Exam Gen : comfortable, alert JVP : elevated HEENT: no icterus or pallor, moist oral mucosa Lungs : good inspiratory effort, no crackles, no wheezing CVS : regular rhythm, normal S1 S2, no murmur or gallop Abdo : soft, non-distended, non-tender, no organomegaly appreciated Peripheries : warm, normal pulses, +1 edema RLE Neuro: oriented x3, no focal abnormalities Skin: dry, no cyanosis, no rash Medications Medications Scheduled Medication Ordered Dose/Rate, Route, Frequency Last Action acetaminophen (TYLENOL) tablet 975 mg 975 mg, PO, Q6H JUDSON Given, 975 mg at 11/08 1531 amiODARONE (PACERONE) tablet 200 mg 200 mg, PO, BID Given, 200 mg at 11/08 09 amLODIPine (NORVASC) tablet 10 mg 10 mg, PO, Daily Given, 10 mg at 11/08 904 aspirin enteric coated (ECOTRIN LOW STRENGTH) tablet 81 mg 81 mg, PO, Q12H JUDSON Given, 81 mg at 11/08 2238 aztreonam (AZACTAM) 2 g in sodium chloride-MBP (NS) 100 mL IVPB-MBP 2 g, IV, Q8H Stopped, 11/09 753 buPROPion (WELLBUTRIN SR) 12 hr tablet 150 mg 150 mg, PO, BID Given, 150 mg at 11/08 2038 calcium citrate (CALCITRATE) tablet 950 mg 950 mg, PO, BID with meals Given, 950 mg at 11/08 163 ceftaroline (TEFLARO) 600 mg in sodium chloride (NS) 0.9 % 250 mL IVPB-WTD 600 mg, IV, Q8H Given, 600 mg at 11/09 013 chlorhexidine gluconate 2 % wipes - central line CHG application No Dose/Rate, TOP, Daily Given, No Dose/Rate at 11/08 1999 cholecalciferol tablet 2,000 Units 2,000 Units, PO, Daily Given, 2,000 Units at 11/08 902 cyanocobalamin (VITAMIN B-12) tablet 2,500 mcg 2,500 mcg, PO, Daily Given, 2,500 mcg at 11/08 902 DAPTOmycin (CUBICIN) 975 mg in sodium chloride (NS) 0.9 % 50 mL IVPB 10 mg/kg, IV, Q24H Stopped, 11/08 160 donepezil (ARICEPT) tablet 10 mg 10 mg, PO, QAM Given, 10 mg at 11/08 903 [Provider Held] empagliflozin (JARDIANCE) 25 mg On hold since Lennie 11/04/2024 at 1503 until manually unheld; held by Gayel Rey Reason: Pre-procedure On hold since Fri11/04/2024 at 1503 until manually unheld (Needs Review) Hold reason: Pre-procedure 25 mg, PO, Daily Given, 25 mg at 11/04 075 folic acid (FOLVITE) tablet 1 mg 1 mg, PO, Daily Given, 1 mg at 11/08 904 [Provider Held] glimepiride (AMARYL) tablet 2 mg On hold since Lennie 11/04/2024 at 1503 until manually unheld; held by Gayle Rey Reason: Pre-procedure On hold since Fri11/04/2024 at 1503 until manually unheld (Needs Review) Hold reason: Pre-procedure 2 mg, PO, Daily with breakfast Given, 2 mg at 11/04 756 insulin lispro (HumaLOG/ADMELOG) 100 units/mL injection 1-11 Units 1-11 Units, SC, TID with meals Given, 2 Units at 11/08 1736 insulin lispro (HumaLOG/ADMELOG) 100 units/mL injection 1-4 Units 1-4 Units, SC, NIGHTLY & 2AM Ordered insulin lispro (HumaLOG/ADMELOG) 100 units/mL injection 5 Units 5 Units, SC, TID with meals Given, 5 Units at 11/08 1745 [Provider Held] metFORMIN (GLUCOPHAGE) tablet 500 mg On hold since Fri11/04/2024 at 1503 until manually unheld; held by Juaquin Kern MDHold Reason: Pre-procedure On hold since Fri11/04/2024 at 1503 until manually unheld (Needs Review) Hold reason: Pre-procedure 500 mg, PO, Daily with breakfast Given, 500 mg at 11/04 755 methocarbamol (ROBAXIN) tablet 1,000 mg 1,000 mg, PO, 4x Daily Given, 1,000 mg at 11/08 2038 metoPROLOL TARTRATE (LOPRESSOR) tablet 50 mg 50 mg, PO, BID Given, 50 mg at 11/08 2037 multivitamin with minerals tablet 1 tablet 1 tablet, PO, Daily Given, 1 tablet at 11/08 904 nicotine (NICODERM CQ) 21 MG/24HR patch 1 patch 1 patch, TD, Daily Patch Applied, 1 patch at 11/08 900 PANTOprazole (PROTONIX) EC tablet 40 mg 40 mg, PO, Daily Given, 40 mg at 11/08 903 [Provider Held] pravastatin (PRAVACHOL) tablet 20 mg On hold since Fri11/03/2024 at 0850 until manually unheld; held by Gayle Rose Reason: Other - Comment requiredHold Comments: While on IV daptomycin On hold since Fri11/03/2024 at 0850 until manually unheld (Needs Review) Hold reason: Other - Comment required, Hold comment: While on IV daptomycin 20 mg, PO, Daily Ordered pregabalin (LYRICA) capsule 150 mg 150 mg, PO, TID Given, 150 mg at 11/08 2037 senna-docusate (SENNA-S) 8.6-50 MG tablet 2 tablet 2 tablet, PO, BID Given, 2 tablet at 11/08 2037 thiamine mononitrate (VITAMIN B-1) tablet 200 mg 200 mg, PO, Daily Given, 200 mg at 11/08 0907 Continuous Medication Ordered Dose/Rate, Route, Frequency Last Action bumetanide (BUMEX) IV infusion 12.5 mg in 50 mL 1 mg/hr, IV, Continuous Rate/Dose Verify, 1 mg/hr at 11/09 0800 PRN Medication Ordered Dose/Rate, Route, Frequency Last Action bisacodyl (DULCOLAX) EC tablet 5 mg 5 mg, PO, Daily PRN Ordered bisacodyl (DULCOLAX) suppository 10 mg 10 mg, RE, Daily PRN Ordered calcium carbonate (TUMS) chewable tablet 1,000 mg 1,000 mg, PO, Q12H PRN Ordered dextrose 50 % solution 12.5 g (Or Linked Group #1) 12.5 g, IV, Q15 Min PRN Ordered dextrose 50 % solution 25 g (Or Linked Group #1) 25 g, IV, Q15 Min PRN Ordered glucagon (GLUCAGEN) injection 1 mg (Or Linked Group #1) 1 mg, IM, Daily PRN Ordered glucose (GLUTOSE 15) 40 % oral gel 37.5 g (Or Linked Group #1) 1 Tube, PO, Q15 Min PRN Ordered glucose (GLUTOSE 15) 40 % oral gel 75 g (Or Linked Group #1) 2 Tube, PO, Q15 Min PRN Ordered HYDROmorphone (DILAUDID) tablet 2 mg 2 mg, PO, Q3H PRN Given, 2 mg at 11/07 182 HYDROmorphone (DILAUDID) tablet 4 mg 4 mg, PO, Q3H PRN Given, 4 mg at 11/09 0448 ipratropium-albuterol (DUONEB) 0.5-2.5 mg/3 mL nebulizer solution 3 mL 3 mL, NEBULIZATION, Q2H PRN Given, 3 mL at 11/07 1025 lactulose (ENULOSE) 10 gm/15 mL solution 20 g 20 g, PO, Q4H PRN Ordered magnesium hydroxide (MILK OF MAGNESIA) 400 mg/5 mL suspension 30 mL 30 mL, PO, Q12H PRN Ordered melatonin tablet 3 mg 3 mg, PO, Nightly PRN Given, 3 mg at 11/08 2202 mineral oil (FLEET OIL) enema 1 enema 1 enema, RE, Daily PRN Ordered naloxone (NARCAN) 0.4 mg/mL injection 0.4 mg 0.4 mg, IV, Q5 Min PRN Ordered ondansetron (ZOFRAN) injection 4 mg 4 mg, IV, Q6H PRN Ordered polyethylene glycol (miraLAx) packet 17 g 17 g, PO, Daily PRN Ordered Relevant data reviewed Results from last 7 days Lab Units 11/09/24 0729 11/09/24 0150 11/09/24 0141 11/08/24 1958 11/08/24 1746 11/08/24 0203 11/08/24 0005 11/07/24 1229 11/07/24 0813 11/06/24 0751 11/06/24 0458 SODIUM mmol/L -- 139 -- -- 141 -- 133* < > 129* -- 131* POTASSIUM mmol/L -- 3.6 -- -- 3.3* -- 3.8 < > 3.9 -- 3.8 CHLORIDE mmol/L -- 101 -- -- 102 -- 98 < > 94* -- 99 CO2 mmol/L -- 25 -- -- 26 -- 21* < > 22 -- 20* CO2, TOTAL -- -- -- -- -- -- -- < > -- -- -- BUN mg/dL -- 46* -- -- 45* -- 48* < > 47* -- 48* CREATININE mg/dL -- 1.8* -- -- 1.7* -- 1.6* < > 1.5* -- 1.7* CALCIUM mg/dL -- 8.2* -- -- 8.6* -- 7.9* < > 8.3* -- 7.8* GLUCOSE mg/dL -- 117* -- -- 134* -- 231* < > 188* -- 194* GLUCOSE, POC mg/dL 153* -- 124* < > -- < > -- < > -- < > -- EGFR -- 42* -- -- 45* -- 48* < > 52* -- 45* ALBUMIN g/dL -- -- -- -- -- -- 2.3* -- 2.6* -- 2.4* PROTEIN, TOTAL g/dL -- -- -- -- -- -- 5.5* -- 6.1* -- 5.7* BILIRUBIN TOTAL mg/dL -- -- -- -- -- -- <0.2* -- 0.2 -- 0.2 ALK PHOS U/L -- -- -- -- -- -- 226* -- 220* -- 270* ALT U/L -- -- -- -- -- -- 24 -- 29 -- 31 AST U/L -- -- -- -- -- -- 24 -- 28 -- 50 < > = values in this interval not displayed. Lab Results Component Value Date MG 2.3 11/09/2024 Results from last 7 days Lab Units 11/09/24 0150 11/08/24 0005 11/07/24 0813 11/06/24 0458 11/04/24 1119 11/02/24 2000 WHITE BLOOD CELL COUNT Thou/uL 11.9* 13.1* 12.4* 11.9* < > 14.3* HEMOGLOBIN g/dL 7.7* 7.9* 8.9* 8.7* < > 9.3* HEMATOCRIT % 24.9* 25.6* 28.9* 27.9* < > 29.3* PLATELET COUNT Thou/uL 405 378 430 346 < > 395 NEUTROS PCT % -- -- -- 88.8 -- 81.9 LYMPHS PCT % -- -- -- 3.4 -- 4.8 MONOS PCT % -- -- -- 6.6 -- 12.2 EOS PCT % -- -- -- 0.0 -- 0.1 BASOS PCT % -- -- -- 0.1 -- 0.4 < > = values in this interval not displayed. Lab Results Component Value Date HSTNT 26 (H) 11/08/2024 HSTNT 29 (H) 11/07/2024 HSTNT 26 (H) 11/07/2024 Lab Results Component Value Date PROBNP 4,241 (H) 11/08/2024 Lab Results Component Value Date HGBA1C 8.7 (H) 09/03/2024 Pertinent Cardiac & Imaging Studies Recent Results (from the past 8760 hour(s)) ECG 12 lead Collection Time: 11/07/24 2:58 PM Result Value Status Systolic BP 116 Final Diastolic BP 57 Final Ventricular rate 62 Final Atrial rate 55 Final QRS duration 168 Final Q-T interval 506 Final QTC calculation (Bazett) 513 Final R axis 104 Final T axis -39 Final Narrative Ventricular-paced rhythm Abnormal ECG When compared with ECG of 02-Nov-2024 21:34, Vent. rate has decreased by 8 bpm Confirmed by MD Claude, [facility] ([id number]) on 11/07/2024 6:25:53 PM ECHO: (11/04/2024) The left ventricle is mildly dilated. Left ventricular systolic function is mildly decreased. The quantitative EF is 43% by 3D imaging, and 46% by 2D Martinez biplane. The right ventricle is dilated. Right ventricular systolic function is normal. A pacer wire is present in the right ventricle. Right atrial cavity is severely dilated. A pacemaker wire is present in the right atrium. The mitral leaflets are moderately thickened. There is moderate to severe mitral regurgitation. Cannot rule out vegetation on the mitral valve leaflets. There is moderate tricuspid regurgitation. The estimated right ventricular systolic pressure is 44 mmHg. There is mild aortic regurgitation. The pulmonic valve was not well visualized. Compared to previous outside study report from [facility] on 08/05/2024, Mitral and tricuspid regurgitation were not previously reported. Recommend transesophageal echocardiogram if clinically indicated. All additional appropriate imaging studies within the past 24 hours reviewed - images reviewed and independently interpreted. Sign Gema Jane APRN [facility] [place] 11/09/2024 9:00 AM * Roberto Carranza PTA - 11/09/2024 8:40 AM EST Physical Therapy Progress Note Precautions/Restrictions: fall, isolation: contact, pacemaker, other (see comments) (NWB LLE; Skin) Assessment Summary: Patient seen for PT follow up. Performed bed mobility, transfers and sidesteps this session. Required Ax2 for mobility. Adjusted nutmegger for optimal fit and protection of residual limb. Per orders patient is to have coil winder repair on AAT, noted that residual limb was wrapped with srinivas wrap vs coil winder repair. Reached out to orthopedic PA in regards to coil winder repair for patient. Patient is motivated to participate in therapy session and is making good progress towards IP PT goals. Presents below functional baseline with impairments in functional strength, balance and activity tolerance. Patient is an excellent rehab candidate with good social support from family. Anticipate patient will be able to tolerate three hours of intensive therapy in acute rehab setting when medically cleared. If transitioning home would recommend Ax2 for transfers, W/C, EMS transport and home PT. Progress Towards Goals: progress toward functional goals is good Outcome Measures: The Activity Measure for Post-Acute Care (AM-PAC) Basic Mobility Inpatient Short Form (6-clicks) zakiya standardized measure used to quantify functional deficits in mobility. The total score of the measure ranges from 6-24. A higher score indicates a higher level of independence with functional mobility. Current [facility] Basic Mobility Score: 14 Rehab Plan of Care PT will continue to follow while in house Continue therex for global strengthening Progress transfer training as tolerated/ appropriate It is vital that patient continues to participate in daily mobility with interdisciplinary team, outside of PT sessions, to promote highest possible level of functional independence. PT Recommendations for Staff: Ax2 with RW for SPT. NWB LLE. PT Frequency during Hospitalization: 2-3 times/wk Plan of Care Reviewed With: patient Objective Data/Intervention Bed Mobility Assessment/Intervention: Supine <> sit with CG. HOB elevated. Able to scoot EOB with CG. Cues for sequencing and safety. Transfers Assessment/Intervention: Sit <> stand with RW and mod Ax2. Cues for hand placement and sequencing. Gait/Stair Assessment/Intervention: Sidesteps x5 with RW and mod Ax2. Patient able to hop on RLE. Heavy reliance on BUEs and RW. Unsteady however no overt LOB noted. Therapeutic Exercise: Reviewed and encouraged BLE therex as appropriate. Neuromuscular Re-Education Assessment/Intervention: Static sitting balance: Supervision Dynamic sitting balance: Min Ax1 Static standing balance: Min/Mod Ax2 Dynamic standing balance: Mod Ax2 Activity Tolerance/Endurance Assessment/Intervention: Fair for PT follow up. Vitals: Before Activity During Activity After Activity Heart Rate 63 bpm 74 bpm 64 bpm BP 139/64 (92) 151/72 (103) 143/67 (96) SpO2 (6L n/c) 92% 87-92% 93% Education: Role of PT, mobility techniques, safety, and IP PT goals Subjective I feel stronger than last time. Flowsheet Data 11/09/24 0840 Physical Therapy Time and Intention PT Follow-Up Visit follow up treatment Mode of Treatment physical therapy Patient Effort excellent Symptoms Noted During/After Treatment fatigue General Information Patient Profile Reviewed yes Patient/Family/Caregiver Comments/Observations I feel stronger than last time. General Observations of Patient Semi reclined in bed, on 6L n/c, NAD. Cleared by RN. Agreeable to PT session. Existing Precautions/Restrictions fall;isolation: contact;pacemaker;other (see comments) (NWB LLE; Skin) Pain Scale: Numbers Pre/Post-Treatment Pretreatment Pain Rating 5/10 Posttreatment Pain Rating 5/10 Pre/Posttreatment Pain Comment L residual limb Cognition Cognitive Status WFL Mobility Extremity Weight-bearing Status left lower extremity Left Upper Extremity (Weight-bearing Status) non weight-bearing (NWB) Coping Observed Emotional State calm;cooperative Verbalized Emotional State acceptance Family/Support Persons patient Plan of Care Review Plan of Care Reviewed With patient Safety Safety Factors wheels locked;ID band on;call light in reach;bed in low position;upper side rails raised x 2, lower side rail raised x 1 All Alarms alarm(s) activated and audible Enhanced Safety Measures bed alarm set Progressive Mobility Progressive Mobility Level Achieved Standing [facility] Basic Mobility Turning from your back to your side while in a flat bed without using bedrails? 4 Moving from lying on your back to sitting on the side of a flat bed without using bedrails? 3 Moving to and from a bed to a chair (including wheelchair)? 2 Standing up from a chair using your arms? 2 To walk in a hospital room? 2 Climbing 3-5 steps with a railing? 1 [facility] Basic Mobility Score 14 Therapy Assessment/Plan (PT) Patient/Family Therapy Goals Statement (PT) To return home Therapy Frequency (PT) 2-3 times/wk PT Recommendations for Staff Ax2 with RW for SPT. NWB LLE. Predicted Duration of Therapy Intervention (PT) LOS Progress Summary (PT) Progress Toward Functional Goals (PT) progress toward functional goals is good Therapy Plan Review/Discharge Plan (PT) Therapy Plan Review (PT) care plan/treatment goals reviewed;evaluation/treatment results reviewed;patient Transfer Goal 1 (PT) Progress/Outcome (Transfer Goal 1, PT) goal ongoing Gait Training Goal 1 (PT) Progress/Outcome (Gait Training Goal 1, PT) goal ongoing Sign: Roberto Carranza, BUSINESS QUALITY ASSURANCE ANALYST Associated attestation - Abhinav Pope, PT - 11/09/2024 2:02 PM EST This treatment was performed under the supervision of the supervising PT. Any changes made to treatment plan have been discussed prior with supervising PT. I have read and agree with the documentation provided and any changes made. * Katy Rodgers, OT - 11/09/2024 8:38 AM EST Occupational Therapy Progress Note Assessment & Progress Summary: Blas was seen for OT follow up session today, now on step down level of care. All activitycompleted on 6 L O2 via NC with O2 sats fluctuating from 94 to 87% given Vcs for good use of PLBingboth at rest and with activity. He was able to transition to EOB with Ax1 however required Ax2 for sit to stands and side stepping along EOB x2 prior to completion of facial grooming and oral care sit ting EOB. Blas was pleasant, cooperative and highly motivated to participate in session however remains well below baseline functional level 2/2 deficits with strength, balance and activity tolerance. Blas is an excellent rehab candidate and would benefit from a coordinated multidisciplinary rehab approach between therapies, physician and nursing at next level of care. Patient is highly motivated to restore prior level of function, has a strong support system, and has potential to return home and reintegrate back into the community with intensive therapy at least 3 hours a day. If transitioning to home at this time, patient will require Ax1-2 for all transfers and standing, LB ADL, toileting and IADL performance. He would also require a w/c, RW and commode in addition to home OT services. Progress Towards Goals: progress toward functional goals is gradual Outcome Measures: The Activity Measure for Post-Acute Care (AM-PAC) Daily Activity Inpatient Short Form (6-clicks) zakiya standardized measure used to quantify deficits in self-care. The total score of the measure ranges from 6-24. A higher score indicates a higher level of independence with self-care tasks. Current [facility] Daily Activity Score: 15 Precautions/Restrictions: fall, isolation: contact, other (see comments), weight bearing (skin, NWBing to L LE) Rehab Plan of Care Pt would benefit from continued OT services 2-3x/wk while in house to maximize functional independence, safety and participation in meaningful occupations. OT intervention to focus on maximizing independence with commode transfers, bathing, LB dressing and toileting tasks with emphasis on ECTs, activity pacing and good use of PLBing. Recommend Ax2 transfers with RW to the commode and recliner chair for meals. Encourage participation with grooming and UB ADLs from EOB with staff assist. -OT Recommendations for Staff: Ax2 with RW for transfers to commode and recliner chair. Ax1 to EOB.Encourage active participation with ADLs throughout the day as able. -OT Frequency during Hospitalization: 2-3 times/wk -Progressive Mobility Level: Level 2 -Plan of Care Reviewed With: care plan/treatment goals reviewed, patient, participants voiced agreement with care plan Education: OT role, POC, and recommendations Treatment Interventions/Objective Data Interventions to Optimize ADL Performance Grooming: Pt was able to wash face and brush teeth while sitting EOB with set up of supplies on bedside table. Dressing: total assist required to adjust flako gown around back while standing with B UE support on RW Transfers and Functional Mobility: CG assist for supine to sit EOB with use of bed rail and slight HOB elevation. He was able to perform sit to stands from EOB to RW x 2 with mod assist x 2 and Vcs for hand placement. Once standing he was able to use UE support on RW to offload R leg to hop along EOB for 2-3 steps. Side stepping performed x 2 with mod assist. He was able to return to supine with supervision. Therapeutic Activity: Adjustments made to positioning of nutmegger at the start of session to optimize alignment and positioning with total assist. Pt was educated regarding proper donning of nutmegger during completion. Education provided throughout session regarding PLBing with min Vcs required to optimize carryover. Neuromuscular Re-education: Pt was able to maintain unsupported sitting balance EOB without physical assistance. Endurance/Activity Tolerance: good for session completed on 6 L O2 via NC without reports of SOB. Pt reported mild initial dizziness with initial sitting which quickly subsided. Vitals: BP: 139/64 supine, 151/72 sitting and 143/67 supine after activity; HR: 62-74 bpm, O2: 94-87% on 6 L O2 via NC Subjective This is good, I need to get stronger. Flowsheet Data 11/09/24 0838 OT Time and Intention OT Follow-Up Visit follow up treatment Mode of Treatment occupational therapy Patient Effort excellent Symptoms Noted During/After Treatment fatigue;dizziness General Information Patient Profile Reviewed yes Patient/Family/Caregiver Comments/Observations This is good, I need to get stronger. General Observations of Patient Pt was received in bed on the SD unit on 6 L O2 via NC with R IJ CVC, srinivas wrap and nutmegger to L residual limb with Bumex running, in NAD and agreeable to OT session. Existing Precautions/Restrictions fall;isolation: contact;other (see comments);weight bearing (skin, NWBing to L LE) Pain Assessment Pretreatment Pain Rating 5/10 Posttreatment Pain Rating 5/10 Pre/Posttreatment Pain Comment reported in L posterior residual limb Cognition Affect/Mental Status (Cognition) WNL Orientation Status (Cognition) oriented x 4 Follows Commands (Cognition) WFL Cognitive Function (Cognition) WFL Mobility Extremity Weight-bearing Status left lower extremity Left Upper Extremity (Weight-bearing Status) non weight-bearing (NWB) Coping Observed Emotional State calm;cooperative;pleasant Verbalized Emotional State acceptance Safety Safety WDL WDL Safety Factors call light in reach;bed in low position All Alarms alarm(s) activated and audible Enhanced Safety Measures bed alarm set Progressive Mobility Progressive Mobility Level Achieved Edge of Bed [facility] Daily Activity Putting on and taking off Lower Body Clothing? 2 Bathing (including washing/rinsing/drying)? 2 Toileting (includes using toilet, bedpan, or urinal)? 1 Putting on and taking off upper body clothing? 3 Taking care of personal grooming such as brushing teeth? 3 Eating meals? 4 [facility] Daily Activity Score 15 Therapy Assessment/Plan (OT) Criteria for Skilled Therapeutic Interventions Met (OT) yes Therapy Frequency (OT) 2-3 times/wk Predicted Duration of Therapy Intervention (OT) LOS Progress Summary (OT) Progress Toward Functional Goals (OT) progress toward functional goals is gradual Daily Progress Summary (OT) goals ongoing Barriers to Overall Progress (OT) Pt is now on SD unit 2/2 respiratory concerns. Therapy Plan Review/Discharge Plan (OT) Therapy Plan Review (OT) care plan/treatment goals reviewed;patient;participants voiced agreement with care plan OT Recommendations for Staff Ax2 with RW for transfers to commode and recliner chair. Ax1 to EOB. Encourage active participation with ADLs throughout the day as able. OT Goals Transfer Goal Selection (OT) transfer, OT goal 1 Transfer Goal 1 (OT) Moffat Level/Cues Needed (Transfer Goal 1, OT) minimum assist (75% or more patient effort) Activity/Assistive Device (Transfer Goal 1, OT) commode chair Time Frame (Transfer Goal 1, OT) 1 week Bathing Goal 1 (OT) Progress/Outcomes (Bathing Goal 1, OT) goal ongoing Dressing Goal 1 (OT) Progress/Outcome (Dressing Goal 1, OT) goal ongoing Toileting Goal 1 (OT) Progress/Outcome (Toileting Goal 1, OT) goal ongoing Sign: Katy Rodgers OT * POOJA Akers - 11/09/2024 8:14 AM EST Orthopedic Progress Note Principal Problem: Acute osteomyelitis of left calcaneus (HCC) (POA: Yes) Active Problems: HTN (hypertension) (POA: Yes) A-fib (HCC) (POA: Yes) PAD (peripheral artery disease) (POA: Yes) MERVIN on CPAP (POA: Yes) Diabetes (HCC) (POA: Yes) Stage 3a chronic kidney disease (CKD) (HCC) (POA: Yes) Hyperlipidemia (POA: Yes) Smoker (POA: Yes) Chronic diastolic congestive heart failure (HCC) (POA: Yes) Osteomyelitis (HCC) (POA: Yes) CKD (chronic kidney disease) (Chronic) (POA: Yes) Bacteremia (POA: Unknown) Presence of permanent cardiac pacemaker (POA: Unknown) Mitral valve vegetation (POA: Unknown) Mitral valve regurgitation (POA: Unknown) Resolved Problems: Assessment & Plan Assessment POD#4 s/p L BKA, bactermia, hypoxia, cardiogenic pulm edema Plan NWB LLE, continue ampu shield ASA 81mg bid Pain control TATIANNA today Continue care per step down, appreciate cards and ID recs Subjective Pt did not awake to voice Objective Last Vitals Pulse:60,Resp:15,BP:(!) 150/66,SpO2:93 %,Weight:120 kg (264 lb 8 oz) Temp Last 24 hrs: Temp Min: 96.6 ??F (35.9 ??C) Max: 97.8 ??F (36.6 ??C) Physical Exam Pt is drowsy on exam, he did not awake to voice. Ampu shield in place, dressing c/d/I. Labs: Recent Labs 11/09/24 0150 HCT 24.9* HGB 7.7* CREAT 1.8* Sign POOJA Akers 11/09/2024 8:14 AM * Shay Martin MD - 11/09/2024 7:53 AM EST Images from the original note were not included. Division of Pulmonary, Critical Care, and Sleep Medicine [address] [facility], [address], [place] [address] Critical Care Progress Note Assessment & Plan Blas Genao is a 63 y.o. male with past medical history of HFrEF (EF 43%), AVB s/p PPM, A-fib/flutter s/p watchman's procedure, hyperlipidemia, hypertension, MERVIN on CPAP, CKD stage III, PAD/PVD initially presented for left 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 and then s/p calcaneal ostectomy 09/21 with wound VAC placement, BKA 11/05 (wound culture with MRSA, Enterococcus faecalis, VRE, chronic bacterium species), hospital course complicated by VRE/Enterococcus faecalis and MRSA bacteremia. Patient was placed on aztreonam, daptomycin and ceftaroline (TTE could not rule out vegetations but with suspicion of pacemaker lead and MV endocarditis). Patient was admitted to the ICU for rescue BiPAP in the setting of hypoxic respiratory failure secondary to acute pulmonary edema/volume overload/CHF exacerbation. 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 TABITHA on CKD stage III Left calcaneal osteomyelitis s/p BKA Hypervolemic hyponatremia Phantom limb pain Comorbid Conditions: Alcohol use disorder Hx of HFrEF (EF 43% AVB s/p PPM A-fib/flutter s/p watchman's procedure Hyperlipidemia Hypertension MERVIN on CPAP therapy PAD/PVD Total LOS: 7 days Plan by system Neuro: CAM: CAM-ICU Delirium Present: Negative Ferreira Agitation Sedation Scale (RASS) / Modified RASS: 0-->alert and calm Continue Tylenol and Robaxin for pain Dilaudid as needed Continue bupropion, Aricept, Lyrica Melatonin as needed for insomnia Anesthesia consult for pain control CT head pending to rule out septic emboli Neurovascular checks Q8 hourly Resp: Continue oxygen supplementation for goal sats >92% Follow-up ABG 7.38/ Continue diuresis DuoNeb as needed Slight worsening of bilateral upper lobe infiltrates CV: Continue bumetanide infusion at 1 mg/h Goal net -1-2 L 24 hours Continue amiodarone, Norvasc, Lopressor Holding pravastatin while on daptomycin Holding Jardiance while inpatient TATIANNA on hold due to oxygen needs Follow-up CT surgery consult/recommendations Follow-up with EP consult/recommendations for infected PPM >Echo: 11/04/2024 The left ventricle is mildly dilated. Left ventricular systolic function is mildly decreased. The quantitative EF is 43% by 3D imaging, and 46% by 2D Martinez biplane. The right ventricle is dilated. Right ventricular systolic function is normal. A pacer wire is present in the right ventricle. Right atrial cavity is severely dilated. A pacemaker wire is present in the right atrium. The mitral leaflets are moderately thickened. There is moderate to severe mitral regurgitation. Cannot rule out vegetation on the mitral valve leaflets. There is moderate tricuspid regurgitation. The estimated right ventricular systolic pressure is 44 mmHg. There is mild aortic regurgitation. The pulmonic valve was not well visualized. Compared to previous outside study report from [facility] on 08/05/2024, Mitral and tricuspid regurgitation were not previously reported. Recommend transesophageal echocardiogram if clinically indicated. GI: Keep n.p.o. while on BiPAP Trend LFTs >Nutrition: Diet/Nutrition Received: NPO Patient to receive supplements: three times a day - with meals; Order: Glucerna Therapeutic Shake, Chocolate, 8 oz Diet NPO; Meds Renal: Monitor renal function and urine output Monitor electrolytes Calcium citrate Monitor CK while on daptomycin Trend serum sodium >Intake & Output Intake/Output Summary (Last 24 hours) at 11/09/2024 0753 Last data filed at 11/09/2024 0119 Gross per 24 hour Intake 668 ml Output 2200 ml Net -1532 ml Endo: Continue fingersticks every 4 while on BiPAP and n.p.o. ISS Lantus Last HB A1c 8.7 (09/21) Heme/Onc: Normocytic anemia Daily CBC ID: Left calcaneal osteomyelitis s/p BKA MRSA/Enterococcus faecalis bacteremia Presumed endocarditis Continue daptomycin, ceftaroline, aztreonam Blood cultures 11/02: MRSA, Enterococcus faecalis/faecium Blood cultures 11/04: GPC in clusters Blood cultures 11/06: pending Blood cultures 11/07: pending Infectious disease following >Antibiotics: Anti-infectives (From admission, onward) Start Dose/Rate Route Frequency Ordered Stop 11/07/24 1700 aztreonam (AZACTAM) 2 g in sodium chloride-MBP (NS) 100 mL IVPB-MBP 2 g 33.3 mL/hr over 3 Hours Intravenous Every 8 hours 11/07/24 1658 11/05/24 1100 ceftaroline (TEFLARO) 600 mg in sodium chloride (NS) 0.9 % 250 mL IVPB-WTD 600 mg 250 mL/hr over 60 Minutes Intravenous Every 8 hours 11/05/24 1040 11/03/24 0900 DAPTOmycin (CUBICIN) 975 mg in sodium chloride (NS) 0.9 % 50 mL IVPB 10 mg/kg ?? 97.3 kg (Adjusted) 139 mL/hr over 30 Minutes Intravenous Every 24 hours 11/03/24 0849 Drips: bumetanide, 1 mg/hr, Last Rate: 1 mg/hr (11/09/24 0333) Lines: Central Line - Triple Lumen (Adult) 11/08/24 1900 internal jugular vein, right (Active) Number of days: 1 Peripheral IV - Single Lumen (Adult) 11/08/24 0029 cephalic vein (lateral side of arm), right 20 gauge (Active) Number of days: 1 Evaluation for Central line access removal was discussed today on rounds. If central line was no longer needed, then it would be removed. Indication for keeping central line: Restraints: Mobility: Progressive Mobility Level Achieved: Level 0 Soto: Evaluation for removal of Soto was discussed today on rounds. If no longer indicated, then it would be removed. Indication for keeping Soto: GI Prophylaxis (if needed): PPI DVT Prophylaxis: SCD Use: Device is properly applied and functional, CODE STATUS: Full code DISPOSITION: SDU I provided 35 minutes of Critical Care time evaluating, providing care and managing this criticallyill/injured patient. I affirm that this patient is critically ill and at high risk for sudden, fatal deterioration due to one or more of the above active issues. I managed/supervised life- or organ-supporting interventions that require frequent physician assessment and reassessment. Critical care time was spent, but not limited to, the review of laboratory test results, medications, relevant radiology and discussing this critically ill patient's care with other medical staff in the unit or at the nursing station [facility] floor where the patient is located. My full attention was given to the management of this patient and I was immediately available during this same time. This time did not include any separate billable procedures. Subjective/Overnight Had some episodes of desaturation yesterday Objective SpO2:93 %,O2 Device: nasal cannula, Flow (L/min) (Oxygen Therapy): 6 O2 Flow Rate (L/min): 6, Temp Last 24 hrs: Temp Min: 96.6 ??F (35.9 ??C) Max: 97.8 ??F (36.6 ??C) WBC Trend White Blood Cell Count Date Value Ref Range Status 11/09/2024 11.9 (H) 4.0 - 11.0 Thou/uL Final 11/08/2024 13.1 (H) 4.0 - 11.0 Thou/uL Final 11/07/2024 12.4 (H) 4.0 - 11.0 Thou/uL Final 11/06/2024 11.9 (H) 4.0 - 11.0 Thou/uL Final Last Vitals: Pulse:60, Resp:15, BP:BP Min: 127/60 Max: 150/66 MAP: Physical Exam: General: alert, appears stated age and cooperative HEENT: supple without LAD Lungs: clear to auscultation bilaterally Chest wall: no tenderness Heart: regular rate and rhythm, S1, S2 normal, no murmur, click, rub or gallop Abdomen: soft, non-tender; bowel sounds normal; no masses, no organomegaly Extremities: atraumatic, no cyanosis or edema Neuro: non focal Skin: Warm, no rash Intake & Output: I/O last 3 completed shifts: In: 1085 [P.O.:477; I.V.:158; IV Piggyback:450] Out: 2950 [Urine:2950] Intake/Output Summary (Last 24 hours) at 11/09/2024 0753 Last data filed at 11/09/2024 0119 Gross per 24 hour Intake 668 ml Output 2200 ml Net -1532 ml Procedures: Surgical/Procedural Cases on this Admission Case IDs Date Procedure Surgeon Location Status [id number] 11/05/24 LEFT BELOW KNEE AMPUTATION Dallas Camejo MD [facility] OR Comp Medications: Medication/MAR Report: Medications Scheduled Medication Ordered Dose/Rate, Route, Frequency Last Action acetaminophen (TYLENOL) tablet 975 mg 975 mg, PO, Q6H JUDSON Given, 975 mg at 11/08 153 amiODARONE (PACERONE) tablet 200 mg 200 mg, PO, BID Given, 200 mg at 11/08 09 amLODIPine (NORVASC) tablet 10 mg 10 mg, PO, Daily Given, 10 mg at 11/08 09 aspirin enteric coated (ECOTRIN LOW STRENGTH) tablet 81 mg 81 mg, PO, Q12H JUDSON Given, 81 mg at 11/08 2238 aztreonam (AZACTAM) 2 g in sodium chloride-MBP (NS) 100 mL IVPB-MBP 2 g, IV, Q8H New Bag, 2 g at 11/09 448 buPROPion (WELLBUTRIN SR) 12 hr tablet 150 mg 150 mg, PO, BID Given, 150 mg at 11/08 2038 calcium citrate (CALCITRATE) tablet 950 mg 950 mg, PO, BID with meals Given, 950 mg at 11/08 1633 ceftaroline (TEFLARO) 600 mg in sodium chloride (NS) 0.9 % 250 mL IVPB-WTD 600 mg, IV, Q8H Given, 600 mg at 11/09 0138 chlorhexidine gluconate 2 % wipes - central line CHG application No Dose/Rate, TOP, Daily Given, No Dose/Rate at 11/08 1999 cholecalciferol tablet 2,000 Units 2,000 Units, PO, Daily Given, 2,000 Units at 11/08 902 cyanocobalamin (VITAMIN B-12) tablet 2,500 mcg 2,500 mcg, PO, Daily Given, 2,500 mcg at 11/08 902 DAPTOmycin (CUBICIN) 975 mg in sodium chloride (NS) 0.9 % 50 mL IVPB 10 mg/kg, IV, Q24H Stopped, 11/08 160 donepezil (ARICEPT) tablet 10 mg 10 mg, PO, QAM Given, 10 mg at 11/08 09 [Provider Held] empagliflozin (JARDIANCE) 25 mg On hold since Fri11/04/2024 at 1503 until manually unheld; held by Juaquin Kern MDHold Reason: Pre-procedure On hold since Fri11/04/2024 at 1503 until manually unheld (Needs Review) Hold reason: Pre-procedure 25 mg, PO, Daily Given, 25 mg at 11/04 075 folic acid (FOLVITE) tablet 1 mg 1 mg, PO, Daily Given, 1 mg at 11/08 09 [Provider Held] glimepiride (AMARYL) tablet 2 mg On hold since Fri11/04/2024 at 1503 until manually unheld; held by Gayle Rey Reason: Pre-procedure On hold since Fri11/04/2024 at 1503 until manually unheld (Needs Review) Hold reason: Pre-procedure 2 mg, PO, Daily with breakfast Given, 2 mg at 11/04 075 insulin lispro (HumaLOG/ADMELOG) 100 units/mL injection 1-11 Units 1-11 Units, SC, TID with meals Given, 2 Units at 11/08 1737 insulin lispro (HumaLOG/ADMELOG) 100 units/mL injection 1-4 Units 1-4 Units, SC, NIGHTLY & 2AM Ordered insulin lispro (HumaLOG/ADMELOG) 100 units/mL injection 5 Units 5 Units, SC, TID with meals Given, 5 Units at 11/08 1746 [Provider Held] metFORMIN (GLUCOPHAGE) tablet 500 mg On hold since Fri11/04/2024 at 1503 until manually unheld; held by Juaquin Kern MDHold Reason: Pre-procedure On hold since Fri11/04/2024 at 1503 until manually unheld (Needs Review) Hold reason: Pre-procedure 500 mg, PO, Daily with breakfast Given, 500 mg at 11/04 0756 methocarbamol (ROBAXIN) tablet 1,000 mg 1,000 mg, PO, 4x Daily Given, 1,000 mg at 11/08 2038 metoPROLOL TARTRATE (LOPRESSOR) tablet 50 mg 50 mg, PO, BID Given, 50 mg at 11/08 2037 multivitamin with minerals tablet 1 tablet 1 tablet, PO, Daily Given, 1 tablet at 11/08 904 nicotine (NICODERM CQ) 21 MG/24HR patch 1 patch 1 patch, TD, Daily Patch Applied, 1 patch at 11/08 900 PANTOprazole (PROTONIX) EC tablet 40 mg 40 mg, PO, Daily Given, 40 mg at 11/08 09 [Provider Held] pravastatin (PRAVACHOL) tablet 20 mg On hold since Fri11/03/2024 at 0850 until manually unheld; held by Ena Mtz MDHold Reason: Other - Comment requiredHold Comments: While on IV daptomycin On hold since Fri11/03/2024 at 0850 until manually unheld (Needs Review) Hold reason: Other - Comment required, Hold comment: While on IV daptomycin 20 mg, PO, Daily Ordered pregabalin (LYRICA) capsule 150 mg 150 mg, PO, TID Given, 150 mg at 11/08 2037 senna-docusate (SENNA-S) 8.6-50 MG tablet 2 tablet 2 tablet, PO, BID Given, 2 tablet at 11/08 2037 thiamine mononitrate (VITAMIN B-1) tablet 200 mg 200 mg, PO, Daily Given, 200 mg at 11/08 906 Continuous Medication Ordered Dose/Rate, Route, Frequency Last Action bumetanide (BUMEX) IV infusion 12.5 mg in 50 mL 1 mg/hr, IV, Continuous New Bag, 1 mg/hr at 11/09 0333 PRN Medication Ordered Dose/Rate, Route, Frequency Last Action bisacodyl (DULCOLAX) EC tablet 5 mg 5 mg, PO, Daily PRN Ordered bisacodyl (DULCOLAX) suppository 10 mg 10 mg, RE, Daily PRN Ordered calcium carbonate (TUMS) chewable tablet 1,000 mg 1,000 mg, PO, Q12H PRN Ordered dextrose 50 % solution 12.5 g (Or Linked Group #1) 12.5 g, IV, Q15 Min PRN Ordered dextrose 50 % solution 25 g (Or Linked Group #1) 25 g, IV, Q15 Min PRN Ordered glucagon (GLUCAGEN) injection 1 mg (Or Linked Group #1) 1 mg, IM, Daily PRN Ordered glucose (GLUTOSE 15) 40 % oral gel 37.5 g (Or Linked Group #1) 1 Tube, PO, Q15 Min PRN Ordered glucose (GLUTOSE 15) 40 % oral gel 75 g (Or Linked Group #1) 2 Tube, PO, Q15 Min PRN Ordered HYDROmorphone (DILAUDID) tablet 2 mg 2 mg, PO, Q3H PRN Given, 2 mg at 11/07 1825 HYDROmorphone (DILAUDID) tablet 4 mg 4 mg, PO, Q3H PRN Given, 4 mg at 11/09 0448 ipratropium-albuterol (DUONEB) 0.5-2.5 mg/3 mL nebulizer solution 3 mL 3 mL, NEBULIZATION, Q2H PRN Given, 3 mL at 11/07 1025 lactulose (ENULOSE) 10 gm/15 mL solution 20 g 20 g, PO, Q4H PRN Ordered magnesium hydroxide (MILK OF MAGNESIA) 400 mg/5 mL suspension 30 mL 30 mL, PO, Q12H PRN Ordered melatonin tablet 3 mg 3 mg, PO, Nightly PRN Given, 3 mg at 11/08 2202 mineral oil (FLEET OIL) enema 1 enema 1 enema, RE, Daily PRN Ordered naloxone (NARCAN) 0.4 mg/mL injection 0.4 mg 0.4 mg, IV, Q5 Min PRN Ordered ondansetron (ZOFRAN) injection 4 mg 4 mg, IV, Q6H PRN Ordered polyethylene glycol (miraLAx) packet 17 g 17 g, PO, Daily PRN Ordered Relevant data reviewed: Hemoglobin, Hematocrit and Platelets Recent Labs 11/07/24 0813 11/08/24 0005 11/09/24 0150 HGB 8.9* 7.9* 7.7* HCT 28.9* 25.6* 24.9* PLT 430 378 405 Electrolytes and Lactate Recent Labs 11/07/24 1612 11/08/24 0005 11/08/24 1746 11/09/24 0150 NA 131* 133* 141 139 K 3.7 3.8 3.3* 3.6 CL 98 98 102 101 CO2 21* 21* 26 25 ANIONGAP 12 14 13 13 BUN 47* 48* 45* 46* CREAT 1.6* 1.6* 1.7* 1.8* Hepatic Testing Recent Labs 11/07/24 0813 11/08/24 0005 AST 28 24 ALT 29 24 ALKPHOS 220* 226* BILITOT 0.2 <0.2* BILIDIR -- 0.1 ALBUMIN 2.6* 2.3* PROT 6.1* 5.5* Coagulation Studies No results for input(s): PTT , LABPROT , INR in the last 72 hours. ABG Trends Recent Labs 11/07/24 1236 PHA 7.38 PCO2 36 PO2 119* Recent Cultures: Culture Date Value Ref Range Status 11/07/2024 Sterile <24 hours Preliminary 11/07/2024 Sterile <24 hours Preliminary 11/06/2024 Sterile after 2 days Preliminary 11/06/2024 Sterile after 2 days Preliminary 11/04/2024 (A) Final Methicillin Resistant Staph aureus (MRSA) Aerobic bottle positive. Susceptibility of the same isolate identification, from the same apparent body site is only performed once per 5 calendar days. See susceptibilities reported on specimen collected 11/02/2024 11/04/2024 (A) Final Methicillin Resistant Staph aureus (MRSA) Aerobic bottle positive. Susceptibility of the same isolate identification, from the same apparent body site is only performed once per 5 calendar days. See susceptibilities reported on specimen collected 11/02/2024 Imaging Studies: Appropriate radiology imaging was reviewed (actual images) and compared to prior where applicable. Specific /additional concerns as highlighted below if appropriate. CXR 11/07 preliminary read: IMPRESSION: Worsening bilateral upper lung field airspace opacities and bronchial wall thickening compared to prior. CXR 11/04: IMPRESSION: Bilateral reticulonodular opacities concerning for interstitial edema. Superimposed atypical infection cannot be ruled out. This report was generated using [employer] dictation software. Although every attempt has been made by the provider to proofread this document, occasional misspellings and typographical errors may still be present. Sign: Shay Martin MD 11/09/2024 7:53 AM * Juany Ospina RN - 11/08/2024 12:45 PM ESTSummary: Nurse NAvigator [facility] Trauma Nurse Navigator Rounding Note Attempted to meet with patient, however, patient was sleeping soundly. Patient has been previously provided with nurse navigator's direct contact information to contact with any questions or concerns. Will attempt to meet with patient again at a more appropriate time. * Chris Taylor MD - 11/08/2024 10:02 AM EST Images from the original note were not included. Coverage for Dr. Mtz [facility] ID Progress Note Name: Blas Genao Age: 63 y.o. 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 ID was consulted on 11/03-> recommended to start daptomycin/meropenem given prior history of MDRO's and follow cultures. 1. Acute hypoxic respiratory failure, transferred to stepdown on 11/07 secondary to volume overloadwith possible superimposed infectious process. Currently on bumetanide infusion -11/07, chest x-ray 2. Polymicrobial bacteremia: Source was left foot infection/ osteomyelitis. -Source control achieved with left BKA on 11/05 -11/06 ,11/07,blood cultures = NGTD -11/04 (2/2) bld cx: G+ cocci in clusters -11/02(2/2) blood cultures: MRSA, Enterococcus faecalis, Enterococcus faecium -10/27: Left foot wound culture at [place]: MRSA, Enterococcus faecalis, VRE, Corynebacterium species and gram-negative bacilli on Gram stain 3. 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 Fever/leukocytosis secondary to bacteremia/left foot infection: 5. H/O atrial fibrillation s/p Watchman device implantation in 2018 6. AMS: Improved 7. Vision issues: Resolved 8. TABITHA. 9. Right TMA with chronic wounds 10. Inflammatory markers CRP 29.62, ESR 79 11. Antibiotics -Daptomycin, 11/03 -Meropenem, 11/03-11/05 -Ceftaroline, 11/05 -Aztreonam, 11/07 Plan: -Remains afebrile, respiratory PCR panel negative, blood cultures have stayed negative since 11/06 -CT of the head showed no acute intracranial process abnormal enhancement. 1. Repeat chest x-ray and procalcitonin in a.m. 2. Check CPK/LFTs every 3 days while on IV daptomycin 3. Continue daptomycin/ceftaroline/ aztreonam 4. Diuretics as per SD team 5. TATIANNA pending 6. He will eventually require PPM extraction Patient had questions about placement of PICC line. He is not ready for PICC line or pro line .We have to wait for blood cx to be negative for at least72 hs prior to PICC/pro line. He can have a midline or central line in the interim Communicated with the stepdown team ANTIBIOTIC TIME OUT Current antibiotic/day of therapy: Anti-infectives (From admission, onward) Start Dose/Rate Route Frequency Ordered Stop 11/07/24 1700 aztreonam (AZACTAM) 2 g in sodium chloride-MBP (NS) 100 mL IVPB-MBP 2 g 33.3 mL/hr over 3 Hours Intravenous Every 8 hours 11/07/24 1658 11/05/24 1100 ceftaroline (TEFLARO) 600 mg in sodium chloride (NS) 0.9 % 250 mL IVPB-WTD 600 mg 250 mL/hr over 60 Minutes Intravenous Every 8 hours 11/05/24 1040 11/03/24 0900 DAPTOmycin (CUBICIN) 975 mg in sodium chloride (NS) 0.9 % 50 mL IVPB 10 mg/kg ?? 97.3 kg (Adjusted) 139 mL/hr over 30 Minutes Intravenous Every 24 hours 11/03/24 0849 OBJECTIVE Physical Examination: Vitals: 11/08/24 0800 BP: Pulse: Resp: Temp: 97.3 ??F (36.3 ??C) SpO2: Weight: General appearance - male Sleepy at the time of my encounter Lungs: Improved air entry bilaterally Cardiovascular: Tachycardic Abdomen soft, nontender Extremities: Left BKA site-> No drain. Appliance Painter And Refinisher in place LABORATORY AND DIAGNOSTIC DATA: Lab and imaging data were reviewed by me Results from last 7 days Lab Units 11/08/24 0005 11/07/24 0813 11/06/24 0458 11/04/24 1119 11/02/24 2000 WHITE BLOOD CELL COUNT Thou/uL 13.1* 12.4* 11.9* < > 14.3* HEMOGLOBIN g/dL 7.9* 8.9* 8.7* < > 9.3* HEMATOCRIT % 25.6* 28.9* 27.9* < > 29.3* PLATELET COUNT Thou/uL 378 430 346 < > 395 NEUTROS PCT % -- -- 88.8 -- 81.9 LYMPHS PCT % -- -- 3.4 -- 4.8 MONOS PCT % -- -- 6.6 -- 12.2 EOS PCT % -- -- 0.0 -- 0.1 BASOS PCT % -- -- 0.1 -- 0.4 < > = values in this interval not displayed. Results from last 7 days Lab Units 11/08/24 0746 11/08/24 0203 11/08/24 0005 11/07/24 1947 11/07/24 1612 11/07/24 1553 11/07/24 1236 11/07/24 1229 11/07/24 0813 11/06/24 0751 11/06/24 0458 SODIUM mmol/L -- -- 133* -- 131* -- -- -- 129* -- 131* POTASSIUM mmol/L -- -- 3.8 -- 3.7 -- -- -- 3.9 -- 3.8 CHLORIDE mmol/L -- -- 98 -- 98 -- -- -- 94* -- 99 CO2 mmol/L -- -- 21* -- 21* -- -- -- 22 -- 20* CO2, TOTAL mmol/L -- -- -- -- -- -- 22 -- -- -- -- BUN mg/dL -- -- 48* -- 47* -- -- -- 47* -- 48* CREATININE mg/dL -- -- 1.6* -- 1.6* -- -- -- 1.5* -- 1.7* CALCIUM mg/dL -- -- 7.9* -- 8.1* -- -- -- 8.3* -- 7.8* GLUCOSE mg/dL -- -- 231* -- 183* -- -- -- 188* -- 194* GLUCOSE, POC mg/dL 198* 209* -- < > -- < > -- < > -- < > -- EGFR -- -- 48* -- 48* -- -- -- 52* -- 45* ALBUMIN g/dL -- -- 2.3* -- -- -- -- -- 2.6* -- 2.4* PROTEIN, TOTAL g/dL -- -- 5.5* -- -- -- -- -- 6.1* -- 5.7* BILIRUBIN TOTAL mg/dL -- -- <0.2* -- -- -- -- -- 0.2 -- 0.2 ALK PHOS U/L -- -- 226* -- -- -- -- -- 220* -- 270* ALT U/L -- -- 24 -- -- -- -- -- 29 -- 31 AST U/L -- -- 24 -- -- -- -- -- 28 -- 50 < > = values in this interval not displayed. Lab Results Component Value Date ALT 24 11/08/2024 AST 24 11/08/2024 ALKPHOS 226 (H) 11/08/2024 BILITOT <0.2 (L) 11/08/2024 Results from last 7 days Lab Units 11/05/24 0712 PROTHROMBIN TIME (PT) seconds 15.3* INR 1.3 Creatine Kinase (CK) Date Value Ref Range Status 11/08/2024 91 24 - 204 U/L Final 11/05/2024 49 24 - 204 U/L Final 11/03/2024 61 24 - 204 U/L Final proBNP, N-terminal Date Value Ref Range Status 11/08/2024 4,241 (H) <125 pg/mL Final Lab Results Component Value Date SEDRATE 79 (H) 11/02/2024 Lab Results Component Value Date CRP 29.62 (H) 11/02/2024 Blood Cultures: Lab Results Component Value Date CULTURE Sterile <24 hours 11/07/2024 Urine Cultures: No results found for: CRYSUA , HYALNCSTUA , UROBILINOGEN , BILIUA , BLOODUA , CLARITYUA , COLORUA , UACOMMENT , GLUCU , KETONESUA , LEUKOCYTESUA , NITRITEUA , PHUA , PROTEINUA , RBCUA , SPECIMEN , SPECGRAVUA , SQEPIUA , WBCUA OTHER MICROBIOLOGY: C. Difficile: No results found for: CDIFFTOX , NAP1 Imaging Studies XR Foot 1 view-Left Result Date: 11/02/2024 This exam was performed in office at [facility] and images reviewed by orthopedic provider. Any findings are documented within ambulatory encounter note on date of service. Current Medications: Current Facility-Administered Medications Medication Dose Route Frequency Provider Last Rate Last Admin acetaminophen (TYLENOL) tablet 975 mg 975 mg Oral Q6H JUDSON Chakraborty MD 975 mg at 11/08/24 0902 amiODARONE (PACERONE) tablet 200 mg 200 mg Oral BID Rafiq Chakraborty MD 200 mg at 11/08/24 09 amLODIPine (NORVASC) tablet 10 mg 10 mg Oral Daily Rafiq Chakraborty MD 10 mg at 11/08/24 09 aspirin enteric coated (ECOTRIN LOW STRENGTH) tablet 81 mg 81 mg Oral Q12H JUDSON Chakraborty MD 81 mg at 11/08/24 0905 aztreonam (AZACTAM) 2 g in sodium chloride-MBP (NS) 100 mL IVPB-MBP 2 g Intravenous Q8H Chris Taylor MD Stopped at 11/08/24 0842 bisacodyl (DULCOLAX) EC tablet 5 mg 5 mg Oral Daily PRN Rafiq Chakraborty MD bisacodyl (DULCOLAX) suppository 10 mg 10 mg Rectal Daily PRN Rafiq Chakraborty MD bumetanide (BUMEX) IV infusion 12.5 mg in 50 mL 1 mg/hr Intravenous Continuous Rafiq Chakraborty MD 4 mL/hr at 11/07/24 2346 1 mg/hr at 11/07/24 2346 buPROPion (WELLBUTRIN SR) 12 hr tablet 150 mg 150 mg Oral BID Rafiq Chakraborty MD 150 mg at 11/08/24 0905 calcium carbonate (TUMS) chewable tablet 1,000 mg 1,000 mg Oral Q12H PRN Rafiq Chakraborty MD calcium citrate (CALCITRATE) tablet 950 mg 950 mg Oral BID with meals Rafiq Chakraborty MD 950 mg at 11/08/24 0904 ceftaroline (TEFLARO) 600 mg in sodium chloride (NS) 0.9 % 250 mL IVPB-WTD 600 mg Intravenous Q8H Rafiq Chakraborty MD 600 mg at 11/08/24 0923 cholecalciferol tablet 2,000 Units 2,000 Units Oral Daily Rafiq Chakraborty MD 2,000 Units at 11/08/24 09 cyanocobalamin (VITAMIN B-12) tablet 2,500 mcg 2,500 mcg Oral Daily Rafiq Chakraborty MD 2,500 mcg at 11/08/24 09 DAPTOmycin (CUBICIN) 975 mg in sodium chloride (NS) 0.9 % 50 mL IVPB 10 mg/kg (Adjusted) Intravenous Q24H Rafiq Chakraborty MD Stopped at 11/07/24 1800 glucose (GLUTOSE 15) 40 % oral gel 37.5 g 1 Tube Oral Q15 Min PRN Kayla Orona, ASSOCIATE THEATRE PROFESSOR Or glucose (GLUTOSE 15) 40 % oral gel 75 g 2 Tube Oral Q15 Min PRN Kayla Orona, ASSOCIATE THEATRE PROFESSOR Or dextrose 50 % solution 12.5 g 12.5 g Intravenous Q15 Min PRN Kayla Orona, ASSOCIATE THEATRE PROFESSOR Or dextrose 50 % solution 25 g 25 g Intravenous Q15 Min PRN Kayla Orona APRN Or glucagon (GLUCAGEN) injection 1 mg 1 mg Intramuscular Daily PRN Kayla Orona APRN donepezil (ARICEPT) tablet 10 mg 10 mg Oral QAM Rafiq Chakraborty MD 10 mg at 11/08/24 0904 [Provider Held] empagliflozin (JARDIANCE) 25 mg 25 mg Oral Daily Rafiq Chakraborty MD 25 mg at 11/04/24 0756 folic acid (FOLVITE) tablet 1 mg 1 mg Oral Daily Rafiq Chakraborty MD 1 mg at 11/08/24 0905 [Provider Held] glimepiride (AMARYL) tablet 2 mg 2 mg Oral Daily with breakfast Rafiq Chakraborty MD 2 mg at 11/04/24 0757 HYDROmorphone (DILAUDID) tablet 2 mg 2 mg Oral Q3H PRN Rafiq Chakraborty MD 2 mg at 11/07/24 1825 HYDROmorphone (DILAUDID) tablet 4 mg 4 mg Oral Q3H PRN Rafiq Chakraborty MD 4 mg at 11/08/24 0923 insulin lispro (HumaLOG/ADMELOG) 100 units/mL injection 1-11 Units 1-11 Units Subcutaneous TID withmeals Kayla Orona APRN 3 Units at 11/08/24 0901 insulin lispro (HumaLOG/ADMELOG) 100 units/mL injection 1-4 Units 1-4 Units Subcutaneous Nightly Kayla Orona APRN 2 Units at 11/07/24 2046 ipratropium-albuterol (DUONEB) 0.5-2.5 mg/3 mL nebulizer solution 3 mL 3 mL Nebulization Q2H PRN Rafiq Chakraborty MD 3 mL at 11/07/24 1025 lactulose (ENULOSE) 10 gm/15 mL solution 20 g 20 g Oral Q4H PRN Rafiq Chakraborty MD magnesium hydroxide (MILK OF MAGNESIA) 400 mg/5 mL suspension 30 mL 30 mL Oral Q12H PRN Rafiq Chakraborty MD melatonin tablet 3 mg 3 mg Oral Nightly PRN Rafiq Chakraborty MD [Provider Held] metFORMIN (GLUCOPHAGE) tablet 500 mg 500 mg Oral Daily with breakfast Rafiq Chakraborty MD 500 mg at 11/04/24 0756 methocarbamol (ROBAXIN) tablet 1,000 mg 1,000 mg Oral 4x Daily Rafiq Chakraborty MD 1,000 mg at metoPROLOL TARTRATE (LOPRESSOR) tablet 50 mg 50 mg Oral BID Rafiq Chakraborty MD 50 mg at 11/08/24902 mineral oil (FLEET OIL) enema 1 enema 1 enema Rectal Daily PRN Rafiq Chakraborty MD multivitamin with minerals tablet 1 tablet 1 tablet Oral Daily Rafiq Chakraborty MD 1 tablet at naloxone (NARCAN) 0.4 mg/mL injection 0.4 mg 0.4 mg Intravenous Q5 Min PRN Rafiq Chakraborty MD nicotine (NICODERM CQ) 21 MG/24HR patch 1 patch 1 patch Transdermal Daily Rafiq Chakraborty MD 1 patch at 11/08/24900 ondansetron (ZOFRAN) injection 4 mg 4 mg Intravenous Q6H PRN Rafiq Chakraborty MD PANTOprazole (PROTONIX) EC tablet 40 mg 40 mg Oral Daily Rafiq Chakraborty MD 40 mg at 11/08/24903 polyethylene glycol (miraLAx) packet 17 g 17 g Oral Daily PRN Rafiq Chakraborty MD [Provider Held] pravastatin (PRAVACHOL) tablet 20 mg 20 mg Oral Daily Rafiq Chakraborty MD pregabalin (LYRICA) capsule 150 mg 150 mg Oral TID Rafiq Chakraborty MD 150 mg at 11/08/24903 senna-docusate (SENNA-S) 8.6-50 MG tablet 2 tablet 2 tablet Oral BID Rafiq Chakraborty MD 2 tablet at 11/08/24904 thiamine mononitrate (VITAMIN B-1) tablet 200 mg 200 mg Oral Daily Rafiq Chakraborty MD 200 mg at 11/08/24 09 ALLERGIES: Allergies Allergen Reactions Lisinopril Other (See Comments) Dehydration I reviewed the prescribed Medications and new Laboratory Blood Work. Monitor for drug related adverse events. 50 min spent in reviewing records, labs, imaging, coordination and formulation of plan ofcare I reviewed all new Imaging Studies (actual images) and compared to prior where applicable Of note, some information is being carried forward from prior records for informational purposes only and is being cited so that efficiency, safety and quality of this patient's care is not compromised This report was generated using [employer] dictation software. Although every attempt has been made by the provider to proofread this document, occasional misspellings and typographical errors Sign Chris Taylor MD, FIDSA, FACP [facility] Infectious Diseases Available via [employer] 11/08/2024 10:02 AM * Dallas Camejo MD - 11/08/2024 9:46 AM EST Blas's clinical progress and CP decompensation noted. Appreciate Medical management and CT recommendations. 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 Will continue to follow. * Gema Jane APRN - 11/08/2024 9:38 AM EST Images from the original note were not included. 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 male with a past medical history significant for HFrEF (EF 43%), AVB s/p PPM, A-fib/flutter s/p watchman's procedure, hyperlipidemia, hypertension, MERVIN on CPAP, CKD stageIII, PAD/PVD who presented with known left calcaneal osteomyelitis now s/p left BKA on 11/05/2024. Course complicated by VRE/Enterococcus faecalis and MRSA bacteremia. Patient was admitted to the ICU for rescue BiPAP in the setting of hypoxic respiratory failure secondary to acute pulmonary edema/volume overload/CHF exacerbation. Cardiology consulted for preop stratification and echocardiogram with concern for endocarditis withthickened mitral leaflets. Plan -pending TATIANNA (hopefully today) -Head CT negative for acute intracranial process or abnormal intracranial enhancement -CT surgery consult pending -EP consult as PPM likely seeded as well -ABX per ID -Remains volume up, renal function stable, continue bumex infusion 1mg/hr, net negative goal 1-2L/24 hours -Continue ASA, amiodarone 200 mg twice daily, metoprolol tartrate 50 mg twice daily -Holding pravastatin -Strict I/O -Daily weights -Continuous telemetry monitoring Subjective / 24h Events Denies chest pain, reports work of breathing has improved although he remains on oxymask with sats in low 90s. Objective Telemetry Reviewed: v-paced Last Vitals Pulse:60,Resp:18,BP:138/63,SpO2:97 %,Weight:120 kg (264 lb 8 oz) Temp Last 24 hrs: Temp Min: 96.2 ??F (35.7 ??C) Max: 99.7 ??F (37.6 ??C) Intake/Output Summary (Last 24 hours) at 11/08/2024937 Last data filed at 11/08/2024 0400 Gross per 24 hour Intake 1141.4 ml Output 3050 ml Net -1908.6 ml Physical Exam Gen : comfortable, alert JVP : elevated HEENT: no icterus or pallor, moist oral mucosa Lungs : good inspiratory effort, no crackles, no wheezing CVS : regular rhythm, normal S1 S2, no murmur or gallop Abdo : soft, non-distended, non-tender, no organomegaly appreciated Peripheries : warm, normal pulses, +1 edema RLE Neuro: oriented x3, no focal abnormalities Skin: dry, no cyanosis, no rash Medications Medications Scheduled Medication Ordered Dose/Rate, Route, Frequency Last Action acetaminophen (TYLENOL) tablet 975 mg 975 mg, PO, Q6H JUDSON Given, 975 mg at 11/08 901 amiODARONE (PACERONE) tablet 200 mg 200 mg, PO, BID Given, 200 mg at 11/08 902 amLODIPine (NORVASC) tablet 10 mg 10 mg, PO, Daily Given, 10 mg at 11/08 904 aspirin enteric coated (ECOTRIN LOW STRENGTH) tablet 81 mg 81 mg, PO, Q12H JUDSON Given, 81 mg at 11/08 904 aztreonam (AZACTAM) 2 g in sodium chloride-MBP (NS) 100 mL IVPB-MBP 2 g, IV, Q8H Stopped, 11/08 841 buPROPion (WELLBUTRIN SR) 12 hr tablet 150 mg 150 mg, PO, BID Given, 150 mg at 11/08 904 calcium citrate (CALCITRATE) tablet 950 mg 950 mg, PO, BID with meals Given, 950 mg at 11/08 903 ceftaroline (TEFLARO) 600 mg in sodium chloride (NS) 0.9 % 250 mL IVPB-WTD 600 mg, IV, Q8H Given, 600 mg at 11/08 922 cholecalciferol tablet 2,000 Units 2,000 Units, PO, Daily Given, 2,000 Units at 11/08 902 cyanocobalamin (VITAMIN B-12) tablet 2,500 mcg 2,500 mcg, PO, Daily Given, 2,500 mcg at 11/08 902 DAPTOmycin (CUBICIN) 975 mg in sodium chloride (NS) 0.9 % 50 mL IVPB 10 mg/kg, IV, Q24H Stopped, 11/07 1799 donepezil (ARICEPT) tablet 10 mg 10 mg, PO, QAM Given, 10 mg at 11/08 903 [Provider Held] empagliflozin (JARDIANCE) 25 mg On hold since Fri11/04/2024 at 1503 until manually unheld; held by Gayle Rey Reason: Pre-procedure On hold since Fri11/04/2024 at 1503 until manually unheld (Needs Review) Hold reason: Pre-procedure 25 mg, PO, Daily Given, 25 mg at 11/04 755 folic acid (FOLVITE) tablet 1 mg 1 mg, PO, Daily Given, 1 mg at 11/08 904 [Provider Held] glimepiride (AMARYL) tablet 2 mg On hold since Fri11/04/2024 at 1503 until manually unheld; held by Gayle Rey Reason: Pre-procedure On hold since Fri11/04/2024 at 1503 until manually unheld (Needs Review) Hold reason: Pre-procedure 2 mg, PO, Daily with breakfast Given, 2 mg at 11/04 756 insulin lispro (HumaLOG/ADMELOG) 100 units/mL injection 1-11 Units 1-11 Units, SC, TID with meals Given, 3 Units at 11/08 900 insulin lispro (HumaLOG/ADMELOG) 100 units/mL injection 1-4 Units 1-4 Units, SC, Nightly Given, 2 Units at 11/07 2045 [Provider Held] metFORMIN (GLUCOPHAGE) tablet 500 mg On hold since Fri11/04/2024 at 1503 until manually unheld; held by Gayle Rey Reason: Pre-procedure On hold since Fri11/04/2024 at 1503 until manually unheld (Needs Review) Hold reason: Pre-procedure 500 mg, PO, Daily with breakfast Given, 500 mg at 11/04 755 methocarbamol (ROBAXIN) tablet 1,000 mg 1,000 mg, PO, 4x Daily Given, 1,000 mg at 11/08 902 metoPROLOL TARTRATE (LOPRESSOR) tablet 50 mg 50 mg, PO, BID Given, 50 mg at 11/08 902 multivitamin with minerals tablet 1 tablet 1 tablet, PO, Daily Given, 1 tablet at 11/08 904 nicotine (NICODERM CQ) 21 MG/24HR patch 1 patch 1 patch, TD, Daily Patch Applied, 1 patch at 11/08 900 PANTOprazole (PROTONIX) EC tablet 40 mg 40 mg, PO, Daily Given, 40 mg at 11/08 903 [Provider Held] pravastatin (PRAVACHOL) tablet 20 mg On hold since Fri11/03/2024 at 0850 until manually unheld; held by Ena Mtz MDHold Reason: Other - Comment requiredHold Comments: While on IV daptomycin On hold since Fri11/03/2024 at 0850 until manually unheld (Needs Review) Hold reason: Other - Comment required, Hold comment: While on IV daptomycin 20 mg, PO, Daily Ordered pregabalin (LYRICA) capsule 150 mg 150 mg, PO, TID Given, 150 mg at 11/08 903 senna-docusate (SENNA-S) 8.6-50 MG tablet 2 tablet 2 tablet, PO, BID Given, 2 tablet at 11/08 904 thiamine mononitrate (VITAMIN B-1) tablet 200 mg 200 mg, PO, Daily Given, 200 mg at 11/08 906 Continuous Medication Ordered Dose/Rate, Route, Frequency Last Action bumetanide (BUMEX) IV infusion 12.5 mg in 50 mL 1 mg/hr, IV, Continuous New Bag, 1 mg/hr at 11/07 2345 PRN Medication Ordered Dose/Rate, Route, Frequency Last Action bisacodyl (DULCOLAX) EC tablet 5 mg 5 mg, PO, Daily PRN Ordered bisacodyl (DULCOLAX) suppository 10 mg 10 mg, RE, Daily PRN Ordered calcium carbonate (TUMS) chewable tablet 1,000 mg 1,000 mg, PO, Q12H PRN Ordered dextrose 50 % solution 12.5 g (Or Linked Group #1) 12.5 g, IV, Q15 Min PRN Ordered dextrose 50 % solution 25 g (Or Linked Group #1) 25 g, IV, Q15 Min PRN Ordered glucagon (GLUCAGEN) injection 1 mg (Or Linked Group #1) 1 mg, IM, Daily PRN Ordered glucose (GLUTOSE 15) 40 % oral gel 37.5 g (Or Linked Group #1) 1 Tube, PO, Q15 Min PRN Ordered glucose (GLUTOSE 15) 40 % oral gel 75 g (Or Linked Group #1) 2 Tube, PO, Q15 Min PRN Ordered HYDROmorphone (DILAUDID) tablet 2 mg 2 mg, PO, Q3H PRN Given, 2 mg at 11/07 1825 HYDROmorphone (DILAUDID) tablet 4 mg 4 mg, PO, Q3H PRN Given, 4 mg at 11/08 0923 ipratropium-albuterol (DUONEB) 0.5-2.5 mg/3 mL nebulizer solution 3 mL 3 mL, NEBULIZATION, Q2H PRN Given, 3 mL at 11/07 1025 lactulose (ENULOSE) 10 gm/15 mL solution 20 g 20 g, PO, Q4H PRN Ordered magnesium hydroxide (MILK OF MAGNESIA) 400 mg/5 mL suspension 30 mL 30 mL, PO, Q12H PRN Ordered melatonin tablet 3 mg 3 mg, PO, Nightly PRN Ordered mineral oil (FLEET OIL) enema 1 enema 1 enema, RE, Daily PRN Ordered naloxone (NARCAN) 0.4 mg/mL injection 0.4 mg 0.4 mg, IV, Q5 Min PRN Ordered ondansetron (ZOFRAN) injection 4 mg 4 mg, IV, Q6H PRN Ordered polyethylene glycol (miraLAx) packet 17 g 17 g, PO, Daily PRN Ordered Relevant data reviewed Results from last 7 days Lab Units 11/08/24 0746 11/08/24 0203 11/08/24 0005 11/07/24 1947 11/07/24 1612 11/07/24 1553 11/07/24 1236 11/07/24 1229 11/07/24 0813 11/06/24 0751 11/06/24 0458 SODIUM mmol/L -- -- 133* -- 131* -- -- -- 129* -- 131* POTASSIUM mmol/L -- -- 3.8 -- 3.7 -- -- -- 3.9 -- 3.8 CHLORIDE mmol/L -- -- 98 -- 98 -- -- -- 94* -- 99 CO2 mmol/L -- -- 21* -- 21* -- -- -- 22 -- 20* CO2, TOTAL mmol/L -- -- -- -- -- -- 22 -- -- -- -- BUN mg/dL -- -- 48* -- 47* -- -- -- 47* -- 48* CREATININE mg/dL -- -- 1.6* -- 1.6* -- -- -- 1.5* -- 1.7* CALCIUM mg/dL -- -- 7.9* -- 8.1* -- -- -- 8.3* -- 7.8* GLUCOSE mg/dL -- -- 231* -- 183* -- -- -- 188* -- 194* GLUCOSE, POC mg/dL 198* 209* -- < > -- < > -- < > -- < > -- EGFR -- -- 48* -- 48* -- -- -- 52* -- 45* ALBUMIN g/dL -- -- 2.3* -- -- -- -- -- 2.6* -- 2.4* PROTEIN, TOTAL g/dL -- -- 5.5* -- -- -- -- -- 6.1* -- 5.7* BILIRUBIN TOTAL mg/dL -- -- <0.2* -- -- -- -- -- 0.2 -- 0.2 ALK PHOS U/L -- -- 226* -- -- -- -- -- 220* -- 270* ALT U/L -- -- 24 -- -- -- -- -- 29 -- 31 AST U/L -- -- 24 -- -- -- -- -- 28 -- 50 < > = values in this interval not displayed. Lab Results Component Value Date MG 2.0 11/08/2024 Results from last 7 days Lab Units 11/08/24 0005 11/07/24 0813 11/06/24 0458 11/04/24 1119 11/02/241999 WHITE BLOOD CELL COUNT Thou/uL 13.1* 12.4* 11.9* < > 14.3* HEMOGLOBIN g/dL 7.9* 8.9* 8.7* < > 9.3* HEMATOCRIT % 25.6* 28.9* 27.9* < > 29.3* PLATELET COUNT Thou/uL 378 430 346 < > 395 NEUTROS PCT % -- -- 88.8 -- 81.9 LYMPHS PCT % -- -- 3.4 -- 4.8 MONOS PCT % -- -- 6.6 -- 12.2 EOS PCT % -- -- 0.0 -- 0.1 BASOS PCT % -- -- 0.1 -- 0.4 < > = values in this interval not displayed. Lab Results Component Value Date HSTNT 26 (H) 11/08/2024 HSTNT 29 (H) 11/07/2024 HSTNT 26 (H) 11/07/2024 Lab Results Component Value Date PROBNP 4,241 (H) 11/08/2024 Lab Results Component Value Date HGBA1C 8.7 (H) 09/03/2024 Pertinent Cardiac & Imaging Studies Recent Results (from the past 8760 hour(s)) ECG 12 lead Collection Time: 11/07/24 2:58 PM Result Value Status Systolic BP 116 Final Diastolic BP 57 Final Ventricular rate 62 Final Atrial rate 55 Final QRS duration 168 Final Q-T interval 506 Final QTC calculation (Bazett) 513 Final R axis 104 Final T axis -39 Final Narrative Ventricular-paced rhythm Abnormal ECG When compared with ECG of 02-Nov-2024 21:34, Vent. rate has decreased by 8 bpm Confirmed by MD Claude, [facility] ([id number]) on 11/07/2024 6:25:53 PM ECHO: (11/04/2024) The left ventricle is mildly dilated. Left ventricular systolic function is mildly decreased. The quantitative EF is 43% by 3D imaging, and 46% by 2D Martinez biplane. The right ventricle is dilated. Right ventricular systolic function is normal. A pacer wire is present in the right ventricle. Right atrial cavity is severely dilated. A pacemaker wire is present in the right atrium. The mitral leaflets are moderately thickened. There is moderate to severe mitral regurgitation. Cannot rule out vegetation on the mitral valve leaflets. There is moderate tricuspid regurgitation. The estimated right ventricular systolic pressure is 44 mmHg. There is mild aortic regurgitation. The pulmonic valve was not well visualized. Compared to previous outside study report from [facility] on 08/05/2024, Mitral and tricuspid regurgitation were not previously reported. Recommend transesophageal echocardiogram if clinically indicated. All additional appropriate imaging studies within the past 24 hours reviewed - images reviewed and independently interpreted. Sign Gema Jane APRN [facility] [place] 11/08/2024 9:38 AM * Shay Martin MD - 11/08/2024 7:40 AM EST Images from the original note were not included. Division of Pulmonary, Critical Care, and Sleep Medicine [address] [place] [address], [address], [place] [address] Critical Care Progress Note Assessment & Plan Blas Genao is a 63 y.o. male with past medical history of HFrEF (EF 43%), AVB s/p PPM, A-fib/flutter s/p watchman's procedure, hyperlipidemia, hypertension, MERVIN on CPAP, CKD stage III, PAD/PVD initially presented for left 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 and then s/p calcaneal ostectomy 09/21 with wound VAC placement, BKA 11/05 (wound culture with MRSA, Enterococcus faecalis, VRE, chronic bacterium species), hospital course complicated by VRE/Enterococcus faecalis and MRSA bacteremia. Patient was placed on aztreonam, daptomycin and ceftaroline (TTE could not rule out vegetations but with suspicion of pacemaker lead and MV endocarditis). Patient was admitted to the ICU for rescue BiPAP in the setting of hypoxic respiratory failure secondary to acute pulmonary edema/volume overload/CHF exacerbation. 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 TABITHA on CKD stage III Left calcaneal osteomyelitis s/p BKA Hypervolemic hyponatremia Phantom limb pain Comorbid Conditions: Alcohol use disorder Hx of HFrEF (EF 43% AVB s/p PPM A-fib/flutter s/p watchman's procedure Hyperlipidemia Hypertension MERVIN on CPAP therapy PAD/PVD Total LOS: 6 days Plan by system Neuro: CAM: CAM-ICU Delirium Present: Negative Ferreira Agitation Sedation Scale (RASS) / Modified RASS: -1-->Wakes easily, drowsy Continue Tylenol and Robaxin for pain Dilaudid as needed Continue bupropion, Aricept, Lyrica Melatonin as needed for insomnia Anesthesia consult for pain control CT head pending to rule out septic emboli Neurovascular checks Q8 hourly Resp: Continue rescue BiPAP support Follow-up ABG 7.// Continue diuresis DuoNeb as needed CV: Continue bumetanide infusion at 1 mg/h Goal net -1-2 L 24 hours Continue amiodarone, Norvasc, Lopressor Holding pravastatin while on daptomycin Holding Jardiance while inpatient TATIANNA scheduled for 11/08 Follow-up CT surgery consult/recommendations Follow-up with EP consult/recommendations for infected PPM >Echo: 11/04/2024 The left ventricle is mildly dilated. Left ventricular systolic function is mildly decreased. The quantitative EF is 43% by 3D imaging, and 46% by 2D Martinez biplane. The right ventricle is dilated. Right ventricular systolic function is normal. A pacer wire is present in the right ventricle. Right atrial cavity is severely dilated. A pacemaker wire is present in the right atrium. The mitral leaflets are moderately thickened. There is moderate to severe mitral regurgitation. Cannot rule out vegetation on the mitral valve leaflets. There is moderate tricuspid regurgitation. The estimated right ventricular systolic pressure is 44 mmHg. There is mild aortic regurgitation. The pulmonic valve was not well visualized. Compared to previous outside study report from [facility] on 08/05/2024, Mitral and tricuspid regurgitation were not previously reported. Recommend transesophageal echocardiogram if clinically indicated. GI: Keep n.p.o. while on BiPAP Trend LFTs >Nutrition: Diet/Nutrition Received: consistent carb/diabetic diet Diet NPO; Meds Patient to receive supplements: three times a day - with meals; Order: Glucerna Therapeutic Shake, Chocolate, 8 oz Renal: Monitor renal function and urine output Monitor electrolytes Calcium citrate Monitor CK while on daptomycin Trend serum sodium >Intake & Output Intake/Output Summary (Last 24 hours) at 11/08/2024 0740 Last data filed at 11/08/2024 0400 Gross per 24 hour Intake 1141.4 ml Output 3650 ml Net -2508.6 ml Endo: Continue fingersticks every 4 while on BiPAP and n.p.o. ISS Lantus Last HB A1c 8.7 (09/21) Heme/Onc: Normocytic anemia Daily CBC ID: Left calcaneal osteomyelitis s/p BKA MRSA/Enterococcus faecalis bacteremia Presumed endocarditis Continue daptomycin, ceftaroline, aztreonam Blood cultures 11/02: MRSA, Enterococcus faecalis/faecium Blood cultures 11/04: GPC in clusters Blood cultures 11/06: pending Blood cultures 11/07: pending Infectious disease following >Antibiotics: Anti-infectives (From admission, onward) Start Dose/Rate Route Frequency Ordered Stop 11/07/24 1700 aztreonam (AZACTAM) 2 g in sodium chloride-MBP (NS) 100 mL IVPB-MBP 2 g 33.3 mL/hr over 3 Hours Intravenous Every 8 hours 11/07/24 1658 11/05/24 1100 ceftaroline (TEFLARO) 600 mg in sodium chloride (NS) 0.9 % 250 mL IVPB-WTD 600 mg 250 mL/hr over 60 Minutes Intravenous Every 8 hours 11/05/24 1040 11/03/24 0900 DAPTOmycin (CUBICIN) 975 mg in sodium chloride (NS) 0.9 % 50 mL IVPB 10 mg/kg ?? 97.3 kg (Adjusted) 139 mL/hr over 30 Minutes Intravenous Every 24 hours 11/03/24 0849 Drips: bumetanide, 1 mg/hr, Last Rate: 1 mg/hr (11/07/24 2346) Lines: Peripheral IV - Single Lumen (Adult) 11/08/24 0029 cephalic vein (lateral side of arm), right 20 gauge (Active) Number of days: 0 Evaluation for Central line access removal was discussed today on rounds. If central line was no longer needed, then it would be removed. Indication for keeping central line: Restraints: Mobility: Progressive Mobility Level Achieved: Level 0 Soto: Evaluation for removal of Soto was discussed today on rounds. If no longer indicated, then it would be removed. Indication for keeping Soto: GI Prophylaxis (if needed): PPI DVT Prophylaxis: SCD Use: Device is properly applied and functional, CODE STATUS: Full code DISPOSITION: SDU I provided 35 minutes of Critical Care time evaluating, providing care and managing this criticallyill/injured patient. I affirm that this patient is critically ill and at high risk for sudden, fatal deterioration due to one or more of the above active issues. I managed/supervised life- or organ-supporting interventions that require frequent physician assessment and reassessment. Critical care time was spent, but not limited to, the review of laboratory test results, medications, relevant radiology and discussing this critically ill patient's care with other medical staff in the unit or at the nursing station ont floor where the patient is located. My full attention was given to the management of this patient and I was immediately available during this same time. This time did not include any separate billable procedures. Subjective/Overnight No acute overnight events. Objective SpO2:97 %,O2 Device: CPAP, , Oxygen Concentration (%): 40 (titrated per protocol, SpO2 97%, pt kannan well) Temp Last 24 hrs: Temp Min: 96.2 ??F (35.7 ??C) Max: 99.7 ??F (37.6 ??C) WBC Trend White Blood Cell Count Date Value Ref Range Status 11/08/2024 13.1 (H) 4.0 - 11.0 Thou/uL Final 11/07/2024 12.4 (H) 4.0 - 11.0 Thou/uL Final 11/06/2024 11.9 (H) 4.0 - 11.0 Thou/uL Final 11/05/2024 15.9 (H) 4.0 - 11.0 Thou/uL Final Last Vitals: Pulse:60, Resp:18, BP:BP Min: 119/57 Max: 151/70 MAP: Physical Exam: General: alert, appears stated age and cooperative HEENT: supple without LAD Lungs: clear to auscultation bilaterally Chest wall: no tenderness Heart: regular rate and rhythm, S1, S2 normal, no murmur, click, rub or gallop Abdomen: soft, non-tender; bowel sounds normal; no masses, no organomegaly Extremities: atraumatic, no cyanosis or edema Neuro: non focal Skin: Warm, no rash Intake & Output: I/O last 3 completed shifts: In: 4851.4 [P.O.:4637; I.V.:114.4; IV Piggyback:100] Out: 4500 [Urine:4500] Intake/Output Summary (Last 24 hours) at 11/08/2024 0740 Last data filed at 11/08/2024 0400 Gross per 24 hour Intake 1141.4 ml Output 3650 ml Net -2508.6 ml Procedures: Surgical/Procedural Cases on this Admission Case IDs Date Procedure Surgeon Location Status [id number] 11/05/24 LEFT BELOW KNEE AMPUTATION Dallas Camejo MD [facility] OR Comp Medications: Medication/MAR Report: Medications Scheduled Medication Ordered Dose/Rate, Route, Frequency Last Action acetaminophen (TYLENOL) tablet 975 mg 975 mg, PO, Q6H JUDSON Given, 975 mg at 11/08 324 amiODARONE (PACERONE) tablet 200 mg 200 mg, PO, BID Given, 200 mg at 11/07 816 amLODIPine (NORVASC) tablet 10 mg 10 mg, PO, Daily Given, 10 mg at 11/07 816 aspirin enteric coated (ECOTRIN LOW STRENGTH) tablet 81 mg 81 mg, PO, Q12H JUDSON Given, 81 mg at 11/07 2140 aztreonam (AZACTAM) 2 g in sodium chloride-MBP (NS) 100 mL IVPB-MBP 2 g, IV, Q8H New Bag, 2 g at 11/08 0518 buPROPion (WELLBUTRIN SR) 12 hr tablet 150 mg 150 mg, PO, BID Given, 150 mg at 11/07 204 calcium citrate (CALCITRATE) tablet 950 mg 950 mg, PO, BID with meals Given, 950 mg at 11/07 165 ceftaroline (TEFLARO) 600 mg in sodium chloride (NS) 0.9 % 250 mL IVPB-WTD 600 mg, IV, Q8H Given, 600 mg at 11/08 0324 cholecalciferol tablet 2,000 Units 2,000 Units, PO, Daily Given, 2,000 Units at 11/07 813 cyanocobalamin (VITAMIN B-12) tablet 2,500 mcg 2,500 mcg, PO, Daily Given, 2,500 mcg at 11/07 814 DAPTOmycin (CUBICIN) 975 mg in sodium chloride (NS) 0.9 % 50 mL IVPB 10 mg/kg, IV, Q24H Stopped, 11/07 1799 donepezil (ARICEPT) tablet 10 mg 10 mg, PO, QAM Given, 10 mg at 11/07 815 [Provider Held] empagliflozin (JARDIANCE) 25 mg On hold since Fri11/04/2024 at 1503 until manually unheld; held by Juaquin Kern MDHold Reason: Pre-procedure On hold since Fri11/04/2024 at 1503 until manually unheld Hold reason: Pre-procedure 25 mg, PO, Daily Given, 25 mg at 11/04 755 folic acid (FOLVITE) tablet 1 mg 1 mg, PO, Daily Given, 1 mg at 11/07 815 [Provider Held] glimepiride (AMARYL) tablet 2 mg On hold since Fri11/04/2024 at 1503 until manually unheld; held by Juaquin Kern MDHold Reason: Pre-procedure On hold since Fri11/04/2024 at 1503 until manually unheld Hold reason: Pre-procedure 2 mg, PO, Daily with breakfast Given, 2 mg at 11/04 756 insulin lispro (HumaLOG/ADMELOG) 100 units/mL injection 1-11 Units 1-11 Units, SC, TID with meals Given, 2 Units at 11/07 1649 insulin lispro (HumaLOG/ADMELOG) 100 units/mL injection 1-4 Units 1-4 Units, SC, Nightly Given, 2 Units at 11/07 2045 [Provider Held] metFORMIN (GLUCOPHAGE) tablet 500 mg On hold since Fri11/04/2024 at 1503 until manually unheld; held by Juaquin Kern MDHold Reason: Pre-procedure On hold since Fri11/04/2024 at 1503 until manually unheld Hold reason: Pre-procedure 500 mg, PO, Daily with breakfast Given, 500 mg at 11/04 755 methocarbamol (ROBAXIN) tablet 1,000 mg 1,000 mg, PO, 4x Daily Given, 1,000 mg at 11/07 2042 metoPROLOL TARTRATE (LOPRESSOR) tablet 50 mg 50 mg, PO, BID Given, 50 mg at 11/07 2042 multivitamin with minerals tablet 1 tablet 1 tablet, PO, Daily Given, 1 tablet at 11/07 817 nicotine (NICODERM CQ) 21 MG/24HR patch 1 patch 1 patch, TD, Daily Patch Applied, 1 patch at 11/07 809 PANTOprazole (PROTONIX) EC tablet 40 mg 40 mg, PO, Daily Given, 40 mg at 11/07 814 [Provider Held] pravastatin (PRAVACHOL) tablet 20 mg On hold since Fri11/03/2024 at 0850 until manually unheld; held by Ena Mtz MDHold Reason: Other - Comment requiredHold Comments: While on IV daptomycin On hold since Fri11/03/2024 at 0850 until manually unheld Hold reason: Other - Comment required, Hold comment: While on IV daptomycin 20 mg, PO, Daily Ordered pregabalin (LYRICA) capsule 150 mg 150 mg, PO, TID Given, 150 mg at 11/07 2043 senna-docusate (SENNA-S) 8.6-50 MG tablet 2 tablet 2 tablet, PO, BID Given, 2 tablet at 11/07 2042 thiamine mononitrate (VITAMIN B-1) tablet 200 mg 200 mg, PO, Daily Given, 200 mg at 11/07 813 Continuous Medication Ordered Dose/Rate, Route, Frequency Last Action bumetanide (BUMEX) IV infusion 12.5 mg in 50 mL 1 mg/hr, IV, Continuous New Bag, 1 mg/hr at 11/076 PRN Medication Ordered Dose/Rate, Route, Frequency Last Action bisacodyl (DULCOLAX) EC tablet 5 mg 5 mg, PO, Daily PRN Ordered bisacodyl (DULCOLAX) suppository 10 mg 10 mg, RE, Daily PRN Ordered calcium carbonate (TUMS) chewable tablet 1,000 mg 1,000 mg, PO, Q12H PRN Ordered dextrose 50 % solution 12.5 g (Or Linked Group #1) 12.5 g, IV, Q15 Min PRN Ordered dextrose 50 % solution 25 g (Or Linked Group #1) 25 g, IV, Q15 Min PRN Ordered glucagon (GLUCAGEN) injection 1 mg (Or Linked Group #1) 1 mg, IM, Daily PRN Ordered glucose (GLUTOSE 15) 40 % oral gel 37.5 g (Or Linked Group #1) 1 Tube, PO, Q15 Min PRN Ordered glucose (GLUTOSE 15) 40 % oral gel 75 g (Or Linked Group #1) 2 Tube, PO, Q15 Min PRN Ordered HYDROmorphone (DILAUDID) tablet 2 mg 2 mg, PO, Q3H PRN Given, 2 mg at 11/07 1825 HYDROmorphone (DILAUDID) tablet 4 mg 4 mg, PO, Q3H PRN Given, 4 mg at 11/08 0325 ipratropium-albuterol (DUONEB) 0.5-2.5 mg/3 mL nebulizer solution 3 mL 3 mL, NEBULIZATION, Q2H PRN Given, 3 mL at 11/07 1025 lactulose (ENULOSE) 10 gm/15 mL solution 20 g 20 g, PO, Q4H PRN Ordered magnesium hydroxide (MILK OF MAGNESIA) 400 mg/5 mL suspension 30 mL 30 mL, PO, Q12H PRN Ordered melatonin tablet 3 mg 3 mg, PO, Nightly PRN Ordered mineral oil (FLEET OIL) enema 1 enema 1 enema, RE, Daily PRN Ordered naloxone (NARCAN) 0.4 mg/mL injection 0.4 mg 0.4 mg, IV, Q5 Min PRN Ordered ondansetron (ZOFRAN) injection 4 mg 4 mg, IV, Q6H PRN Ordered polyethylene glycol (miraLAx) packet 17 g 17 g, PO, Daily PRN Ordered Relevant data reviewed: Hemoglobin, Hematocrit and Platelets Recent Labs 11/06/24 0458 11/07/24 0813 11/08/24 0005 HGB 8.7* 8.9* 7.9* HCT 27.9* 28.9* 25.6* PLT 346 430 378 Electrolytes and Lactate Recent Labs 11/06/24 0458 11/07/24 0813 11/07/24 1236 11/07/24 1612 11/08/24 0005 NA 131* 129* -- 131* 133* K 3.8 3.9 -- 3.7 3.8 CL 99 94* -- 98 98 CO2 20* 22 22 21* 21* ANIONGAP 12 13 -- 12 14 BUN 48* 47* -- 47* 48* CREAT 1.7* 1.5* -- 1.6* 1.6* Hepatic Testing Recent Labs 11/06/24 0458 11/07/24 0813 11/08/24 0005 AST 50 28 24 ALT 31 29 24 ALKPHOS 270* 220* 226* BILITOT 0.2 0.2 <0.2* BILIDIR -- -- 0.1 ALBUMIN 2.4* 2.6* 2.3* PROT 5.7* 6.1* 5.5* Coagulation Studies No results for input(s): PTT , LABPROT , INR in the last 72 hours. ABG Trends Recent Labs 11/07/24 1236 PHA 7.38 PCO2 36 PO2 119* Recent Cultures: Culture Date Value Ref Range Status 11/06/2024 Sterile after 1 day Preliminary 11/06/2024 Sterile after 1 day Preliminary 11/04/2024 Aerobic bottle positive. (A) Preliminary 11/04/2024 Aerobic bottle positive. (A) Preliminary 11/02/2024 (A) Final Methicillin Resistant Staph aureus (MRSA) Aerobic and Anaerobic bottle positive. 11/02/2024 (A) Final Enterococcus faecalis Aerobic and Anaerobic bottle positive. 11/02/2024 Enterococcus faecium Anaerobic bottle positive. (A) Final 11/02/2024 (A) Final Methicillin Resistant Staph aureus (MRSA) Aerobic and Anaerobic bottle positive. Complete identification and susceptibility of the same isolate, if appropriate, performed on only one blood culture collection per day. 11/02/2024 (A) Final Enterococcus faecalis Aerobic and Anaerobic bottle positive. Complete identification and susceptibility of the same isolate, if appropriate, performed on only one blood culture collection per day. Imaging Studies: Appropriate radiology imaging was reviewed (actual images) and compared to prior where applicable. Specific /additional concerns as highlighted below if appropriate. CXR 11/07 preliminary read: IMPRESSION: Worsening bilateral upper lung field airspace opacities and bronchial wall thickening compared to prior. CXR 11/04: IMPRESSION: Bilateral reticulonodular opacities concerning for interstitial edema. Superimposed atypical infection cannot be ruled out. This report was generated using [employer] dictation software. Although every attempt has been made by the provider to proofread this document, occasional misspellings and typographical errors may still be present. Sign: Shay Martin MD 11/08/2024 7:40 AM * POOJA Hatch - 11/08/2024 6:36 AM EST Orthopaedic Progress Note A/P: 63 y.o. male POD# 3 L BKA, now with acute hypoxia/cardiogenic pulmonary edema - Weight bearing status: NWB left lower extremity, continue LLE nutmegger and coil winder repair. - skin checks to LLE bid - DVT prophylaxis: asa 81mg bid - OT/PT/OOB - pain control - head CT performed, awaiting read - follow Blood cultures - continue care per critical care service/medicine, appreciate ID, Cards, pharmacy pain recs S: denies current cp/sob, asking to get rid of mask (currently on cpap 15L). Reports that pain in LLE has been ok O: Blood pressure 138/63, pulse 60, temperature 97.4 ??F (36.3 ??C), temperature source Tympanic, resp. rate 18, weight 120 kg (264 lb 8 oz), SpO2 97%. Intake/Output Summary (Last 24 hours) at 11/08/2024 0636 Last data filed at 11/08/2024 0400 Gross per 24 hour Intake 1141.4 ml Output 3650 ml Net -2508.6 ml Exam: GEN: NAD, AOX3 RESP: CPAP 15L, sats drop when removed LLE: nutmegger/coil winder repair in place. Thigh soft Labs: Recent Labs 11/05/24 0712 11/06/24 0458 11/08/24 0005 HCT 28.3* < > 25.6* HGB 9.1* < > 7.9* INR 1.3 -- -- CREAT 2.0* < > 1.6* WBC 15.9* < > 13.1* < > = values in this interval not displayed. POOJA Hatch * Chris Taylor MD - 11/07/2024 11:30 AM EST Images from the original note were not included. Coverage for Dr. Mtz [facility] Progress Note Name: Blas Genao Age: 63 y.o. 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 ID was consulted on 11/03-> recommended to start daptomycin/meropenem given prior history of MDRO's and follow cultures. 1. Polymicrobial bacteremia: Source is the left foot infection and osteomyelitis. -Source control achieved with left BKA on 11/05 -10/27: Left foot wound culture at [place]: MRSA, Enterococcus faecalis, VRE, Corynebacterium species and gram-negative bacilli on Gram stain 2. High concern for mitral valve and pacemaker lead endocarditis endocarditis -TTE: Left ventricle is mildly dilated, right ventricle is dilated, pacemaker wire in the right atrium, moderately thickened mitral leaflets, moderate to severe mitral regurgitation, cannot rule out vegetation on mitral valve leaflets, moderate tricuspid regurgitation -11/06 blood cultures = NGTD -11/04 (1/2) blood cultures: Gram-positive cocci in clusters -11/02(2/2) blood cultures: MRSA, Enterococcus faecalis, Enterococcus faecium 3. Fever/leukocytosis secondary to bacteremia/left foot infection:; Afebrile with WBC 12.4 3. Chest x-ray from today showsWorsening bilateral upper lung field airspace opacities and bronchial wall thickening compared to prior. 5. History of atrial fibrillation s/p Watchman device implantation in 2018 6. AMS: Improved 7. Vision issues: Resolved 8. TABITHA. 9.Right TMA wounds with with chronic wounds 10. Inflammatory markers CRP 29.62, ESR 79 11. Antibiotics -Daptomycin, 11/03 -Meropenem, 11/03-11/05 -Ceftaroline, 11/05 Plan: Patient was upgraded to [place] 11 stepdown secondary to increased oxygen requirement, currently on rescue BiPAP. Chest x-ray reviewed, question of volume overload versus secondary bacterial infection. Ceftarolinewill cover MRSA. Quinolones will be an option, but he has QTc of 513 1. Add aztreonam IV 2. Continue salvage regimen of daptomycin/ceftaroline 3. Follow respiratory PCR 4. Diuretics as per [place] team 5. TATIANNA /CT of head pending 6. He will eventually require PPM extraction 5. Follow repeat blood cultures. Have ordered 2 more sets of blood cultures Communicated with stepdown team ANTIBIOTIC TIME OUT Current antibiotic/day of therapy: Anti-infectives (From admission, onward) Start Dose/Rate Route Frequency Ordered Stop 11/05/24 1100 ceftaroline (TEFLARO) 600 mg in sodium chloride (NS) 0.9 % 250 mL IVPB-WTD 600 mg 250 mL/hr over 60 Minutes Intravenous Every 8 hours 11/05/24 1040 11/03/24 0900 DAPTOmycin (CUBICIN) 975 mg in sodium chloride (NS) 0.9 % 50 mL IVPB 10 mg/kg ?? 97.3 kg (Adjusted) 139 mL/hr over 30 Minutes Intravenous Every 24 hours 11/03/24 0849 OBJECTIVE Physical Examination: Vitals: 11/07/24 1028 BP: Pulse: Resp: Temp: SpO2: (!) 90% Weight: General appearance - male on rescue BiPAP, but able to talk Lungs: Scattered rhonchi Cardiovascular: Tachycardic Abdomen: Soft nontender Extremities: Left BKA amputation site covered with wrapped Right TMA site with chronic skin skin thickening LABORATORY AND DIAGNOSTIC DATA: Lab and imaging data were reviewed by me Results from last 7 days Lab Units 11/07/24 0813 11/06/24 0458 11/05/24 0712 11/04/24 1119 11/02/24 2000 WHITE BLOOD CELL COUNT Thou/uL 12.4* 11.9* 15.9* < > 14.3* HEMOGLOBIN g/dL 8.9* 8.7* 9.1* < > 9.3* HEMATOCRIT % 28.9* 27.9* 28.3* < > 29.3* PLATELET COUNT Thou/uL 430 346 353 < > 395 NEUTROS PCT % -- 88.8 -- -- 81.9 LYMPHS PCT % -- 3.4 -- -- 4.8 MONOS PCT % -- 6.6 -- -- 12.2 EOS PCT % -- 0.0 -- -- 0.1 BASOS PCT % -- 0.1 -- -- 0.4 < > = values in this interval not displayed. Results from last 7 days Lab Units 11/07/24 0813 11/07/24 0733 11/07/24 0207 11/06/24 0751 11/06/24 0458 11/05/24 1254 11/05/24 0712 SODIUM mmol/L 129* -- -- -- 131* -- 130* POTASSIUM mmol/L 3.9 -- -- -- 3.8 -- 3.4 CHLORIDE mmol/L 94* -- -- -- 99 -- 96* CO2 mmol/L 22 -- -- -- 20* -- 19* BUN mg/dL 47* -- -- -- 48* -- 47* CREATININE mg/dL 1.5* -- -- -- 1.7* -- 2.0* CALCIUM mg/dL 8.3* -- -- -- 7.8* -- 7.9* GLUCOSE mg/dL 188* -- -- -- 194* -- 146* GLUCOSE, POC mg/dL -- 191* 231* < > -- < > -- EGFR 52* -- -- -- 45* -- 37* ALBUMIN g/dL 2.6* -- -- -- 2.4* -- 2.5* PROTEIN, TOTAL g/dL 6.1* -- -- -- 5.7* -- 5.9* BILIRUBIN TOTAL mg/dL 0.2 -- -- -- 0.2 -- 0.3 ALK PHOS U/L 220* -- -- -- 270* -- 153* ALT U/L 29 -- -- -- 31 -- 23 AST U/L 28 -- -- -- 50 -- 26 < > = values in this interval not displayed. Lab Results Component Value Date ALT 29 11/07/2024 AST 28 11/07/2024 ALKPHOS 220 (H) 11/07/2024 BILITOT 0.2 11/07/2024 Results from last 7 days Lab Units 11/05/24 0712 PROTHROMBIN TIME (PT) seconds 15.3* INR 1.3 Creatine Kinase (CK) Date Value Ref Range Status 11/05/2024 49 24 - 204 U/L Final 11/03/2024 61 24 - 204 U/L Final proBNP, N-terminal Date Value Ref Range Status 11/07/2024 3,427 (H) <125 pg/mL Final Lab Results Component Value Date SEDRATE 79 (H) 11/02/2024 Lab Results Component Value Date CRP 29.62 (H) 11/02/2024 Blood Cultures: Lab Results Component Value Date CULTURE Sterile <24 hours 11/06/2024 CULTURE Sterile <24 hours 11/06/2024 Urine Cultures: No results found for: CRYSUA , HYALNCSTUA , UROBILINOGEN , BILIUA , BLOODUA , CLARITYUA , COLORUA , UACOMMENT , GLUCU , KETONESUA , LEUKOCYTESUA , NITRITEUA , PHUA , PROTEINUA , RBCUA , SPECIMEN , SPECGRAVUA , SQEPIUA , WBCUA OTHER MICROBIOLOGY: C. Difficile: No results found for: CDIFFTOX , NAP1 Imaging Studies XR Foot 1 view-Left Result Date: 11/02/2024 This exam was performed in office at [facility] and images reviewed by orthopedic provider. Any findings are documented within ambulatory encounter note on date of service. Current Medications: Current Facility-Administered Medications Medication Dose Route Frequency Provider Last Rate Last Admin [Provider Held] lactated ringers (LR) infusion 100 mL/hr Intravenous Continuous POOJA De Souza Held at 11/05/24 2300 [Provider Held] lactated ringers (LR) infusion 100 mL/hr Intravenous Continuous POOJA De Souza Stopped at 11/06/24 1100 acetaminophen (TYLENOL) tablet 975 mg 975 mg Oral Q6H [facility] POOJA De Souza 975 mg at 11/07/24 0814 amiODARONE (PACERONE) tablet 200 mg 200 mg Oral BID POOJA De Souza 200 mg at 11/07/24 0817 amLODIPine (NORVASC) tablet 10 mg 10 mg Oral Daily POOJA De Souza 10 mg at 11/07/24 0817 aspirin enteric coated (ECOTRIN LOW STRENGTH) tablet 81 mg 81 mg Oral Q12H [facility] POOJA De Souza81 mg at 11/07/24 0815 bisacodyl (DULCOLAX) EC tablet 5 mg 5 mg Oral Daily PRN POOJA De Souza bisacodyl (DULCOLAX) suppository 10 mg 10 mg Rectal Daily PRN POOJA De Souza bisacodyl (DULCOLAX) suppository 10 mg 10 mg Rectal Daily PRN POOJA De Souza bumetanide (BUMEX) IV infusion 12.5 mg in 50 mL 0.5 mg/hr Intravenous Continuous Juaquin Kern MD 2 mL/hr at 11/07/24 1118 0.5 mg/hr at 11/07/24 1118 buPROPion (WELLBUTRIN SR) 12 hr tablet 150 mg 150 mg Oral BID POOJA De Souza 150 mg at 11/07/24 0817 calcium carbonate (TUMS) chewable tablet 1,000 mg 1,000 mg Oral Q12H PRN POOJA De Souza calcium citrate (CALCITRATE) tablet 950 mg 950 mg Oral BID with meals POOJA De Souza 950 mg at 11/06/24 1829 ceftaroline (TEFLARO) 600 mg in sodium chloride (NS) 0.9 % 250 mL IVPB-WTD 600 mg Intravenous Q8H POOJA De Souza 600 mg at 11/07/24 1057 cholecalciferol tablet 2,000 Units 2,000 Units Oral Daily POOJA De Souza 2,000 Units at 11/07/24 0814 cyanocobalamin (VITAMIN B-12) tablet 2,500 mcg 2,500 mcg Oral Daily POOJA De Souza 2,500 mcg at 11/07/24 0815 DAPTOmycin (CUBICIN) 975 mg in sodium chloride (NS) 0.9 % 50 mL IVPB 10 mg/kg (Adjusted) Intravenous Q24H POOJA De Souza Stopped at 11/06/24 1517 glucose (GLUTOSE 15) 40 % oral gel 37.5 g 1 Tube Oral Q15 Min PRN POOJA De Souza Or glucose (GLUTOSE 15) 40 % oral gel 75 g 2 Tube Oral Q15 Min PRN POOJA De Souza Or dextrose 50 % solution 12.5 g 12.5 g Intravenous Q15 Min PRN POOJA De Souza Or dextrose 50 % solution 25 g 25 g Intravenous Q15 Min PRN POOJA De Souza Or glucagon (GLUCAGEN) injection 1 mg 1 mg Intramuscular Daily PRN POOJA De Souza diazepam (VALIUM) injection 20 mg 20 mg Intravenous Q15 Min PRN POOJA De Souza Or diazepam (VALIUM) injection 10 mg 10 mg Intravenous Q15 Min PRN POOJA De Souza diazepam (VALIUM) injection 40 mg 40 mg Intravenous Daily PRN POOJA De Souza Or diazepam (VALIUM) injection 20 mg 20 mg Intravenous Daily PRN POOJA De Souza docusate sodium (COLACE) capsule 100 mg 100 mg Oral BID POOJA De Souza 100 mg at 11/07/24 0815 donepezil (ARICEPT) tablet 10 mg 10 mg Oral QAM POOJA De Souza 10 mg at 11/07/24 0816 [Provider Held] empagliflozin (JARDIANCE) 25 mg 25 mg Oral Daily POOJA Arias 25 mg at 11/04/24 0756 folic acid (FOLVITE) tablet 1 mg 1 mg Oral Daily POOJA De Souza 1 mg at 11/07/24 0816 [Provider Held] glimepiride (AMARYL) tablet 2 mg 2 mg Oral Daily with breakfast POOJA Arias 2 mg at 11/04/24 0757 HYDROmorphone (DILAUDID) tablet 2 mg 2 mg Oral Q3H PRN Dallas Rivers PA-C HYDROmorphone (DILAUDID) tablet 4 mg 4 mg Oral Q3H PRN Dallas Rivers PA-C 4 mg at 11/07/24 1120 insulin lispro (HumaLOG/ADMELOG) 100 units/mL injection 1-4 Units 1-4 Units Subcutaneous NIGHTLY & 2AM POOJA De Souza 1 Units at 11/07/24 0213 insulin lispro (HumaLOG/ADMELOG) 100 units/mL injection 1-6 Units 1-6 Units Subcutaneous TID with meals POOJA De Souza 2 Units at 11/07/24 0810 ipratropium-albuterol (DUONEB) 0.5-2.5 mg/3 mL nebulizer solution 3 mL 3 mL Nebulization Q2H PRN Juaquin Kern MD 3 mL at 11/07/24 1025 lactulose (ENULOSE) 10 gm/15 mL solution 20 g 20 g Oral Q4H PRN POOJA De Souza magnesium hydroxide (MILK OF MAGNESIA) 400 mg/5 mL suspension 30 mL 30 mL Oral Daily PRN POOJA De Souza magnesium hydroxide (MILK OF MAGNESIA) 400 mg/5 mL suspension 30 mL 30 mL Oral Q12H PRN POOAJ De Souza melatonin tablet 3 mg 3 mg Oral Nightly PRN POOJA De Souza [Provider Held] metFORMIN (GLUCOPHAGE) tablet 500 mg 500 mg Oral Daily with breakfast POOJA Arias 500 mg at 11/04/24 0756 methocarbamol (ROBAXIN) tablet 1,000 mg 1,000 mg Oral 4x Daily Dallas Rivers PA-C 1,000 mg at 11/07/24 0817 metoPROLOL TARTRATE (LOPRESSOR) tablet 50 mg 50 mg Oral BID POOJA De Souza 50 mg at 11/07/24 0817 mineral oil (FLEET OIL) enema 1 enema 1 enema Rectal Daily PRN POOJA De Souza multivitamin with minerals tablet 1 tablet 1 tablet Oral Daily POOJA De Souza 1 tablet at 11/07/24 0818 naloxone (NARCAN) 0.4 mg/mL injection 0.4 mg 0.4 mg Intravenous Q5 Min PRN POOJA De Souza nicotine (NICODERM CQ) 21 MG/24HR patch 1 patch 1 patch Transdermal Daily POOJA De Souza 1 patch at 11/07/24 0810 ondansetron (ZOFRAN) injection 4 mg 4 mg Intravenous Q6H PRN POOJA De Souza ondansetron (ZOFRAN-ODT) disintegrating tablet 4 mg 4 mg Oral Q6H PRN POOJA De Souza PANTOprazole (PROTONIX) EC tablet 40 mg 40 mg Oral Daily POOJA De Souza 40 mg at 11/07/24 0815 polyethylene glycol (miraLAx) packet 17 g 17 g Oral Daily PRN POOJA De Souza polyethylene glycol (miraLAx) packet 17 g 17 g Oral Daily PRN POOJA De Souza [Provider Held] pravastatin (PRAVACHOL) tablet 20 mg 20 mg Oral Daily POOJA Arias pregabalin (LYRICA) capsule 150 mg 150 mg Oral TID POOJA Velasquez-Annemarie 150 mg at senna (SENOKOT) tablet 2 tablet 2 tablet Oral Nightly POOJA De Souza 2 tablet at 11/06/242107 senna-docusate (SENNA-S) 8.6-50 MG tablet 2 tablet 2 tablet Oral BID POOJA De Souza 2 tablet at 11/07/24 0818 sodium chloride (NS) 0.9 % infusion - ADS Override Pull thiamine mononitrate (VITAMIN B-1) tablet 200 mg 200 mg Oral Daily POOJA De Souza 200 mg at 11/07/24 0814 ALLERGIES: Allergies Allergen Reactions Lisinopril Other (See Comments) Dehydration I reviewed the prescribed Medications and new Laboratory Blood Work. Monitor for drug related adverse events. 50 minutes spent in reviewing records, labs, imaging, coordination and formulation of plan of care I reviewed all new Imaging Studies (actual images) and compared to prior where applicable Of note, some information is being carried forward from prior records for informational purposes only and is being cited so that efficiency, safety and quality of this patient's care is not compromised This report was generated using [employer] dictation software. Although every attempt has been made by the provider to proofread this document, occasional misspellings and typographical errors Sign Chris Taylor MD, F[facility], [facility] Infectious Diseases Available via [employer] 11/07/2024 11:30 AM * Lei Diaz MD - 11/07/2024 11:05 AM EST Anesthesia Acute Pain Consult Note Date of Consult: 11/07/2024 Physician/Service Requesting Consult: Acute pain service Reason for Consultation: Pain control Name: Blas Genao Age: 63 y.o. Sex: male Principal Problem: Acute osteomyelitis of left calcaneus (HCC) (POA: Yes) Active Problems: HTN (hypertension) (POA: Yes) A-fib (HCC) (POA: Yes) PAD (peripheral artery disease) (POA: Yes) MERVIN on CPAP (POA: Yes) Diabetes (HCC) (POA: Yes) Stage 3a chronic kidney disease (CKD) (HCC) (POA: Yes) Hyperlipidemia (POA: Yes) Smoker (POA: Yes) Chronic diastolic congestive heart failure (HCC) (POA: Yes) Osteomyelitis (HCC) (POA: Yes) CKD (chronic kidney disease) (Chronic) (POA: Yes) Bacteremia (POA: Unknown) Presence of permanent cardiac pacemaker (POA: Unknown) Mitral valve vegetation (POA: Unknown) Mitral valve regurgitation (POA: Unknown) Resolved Problems: Assessment & Plan Assessment Mr. Blas Genao is a 63 y.o. year old male with a PMH significant for atrial flutter/fib, chronic diastolic CHF, diabetes, hypertension, hyperlipidemia, CPAP, PAD, CKD 3, MERVIN on CPAP who presented with phantom limb pain s/p left BKA on 11/05 secondary to calcaneal osteomyelitis. On assessment , patient's pain was well controlled and noted that he was not interested at any nerve blocks at this time. He did note that his previous nerve blocks (femoral and sciatic nerve blocks) helped. Plan No need for intervention at this time General appearance: alert, appears stated age, and cooperative Head: Normocephalic, without obvious abnormality, atraumatic Extremities: upper extremities normal & right lower, atraumatic; left lower extremity dry , s/pBKA Neurologic: Grossly normal Code Status: Full Code Subjective Chief Complaint Pain on lateral portion of distal left lower extremity History of Present Illness Blas Genao is a 63 y.o. male here for evaluation of phantom pain s/p left BKA Objective Past Medical History: Diagnosis Date A-fib (HCC) Acute osteomyelitis (HCC) Atrial flutter (HCC) Cardiac pacemaker 2016 Carotid atherosclerosis Charcot's joint of right foot 2015 Chronic sciatica Complete AV block (HCC) Diabetes mellitus (HCC) TYPE II Diabetic foot ulcer (HCC) ED (erectile dysfunction) Edema ESBL (extended spectrum beta-lactamase) producing bacteria infection GERD (gastroesophageal reflux disease) GI bleed Hyperlipidemia Hypertension Leukocytosis Metabolic bone disease Multiple drug resistant organism (MDRO) culture positive Non healing left heel wound Obesity Osteoarthrosis Osteomyelitis of both feet (HCC) PAD (peripheral artery disease) ([facility]) Primary osteoarthritis of knee Proteinuria Renal osteodystrophy Restless legs syndrome (RLS) no meds, lyrica helps Septic joint of left knee joint ([facility]) Sleep apnea BiPap Smoker Stage 3a chronic kidney disease (CKD) ([facility]) Past Surgical History: Procedure Laterality Date AMPUTATION Right 2017 TMA AORTOGRAM- ABDOMINAL Left 09/15/2024 Procedure: LEFT LOWER EXTREMITY ANGIOGRAM; Surgeon: Delbert Mcintosh MD; Location: Main OR; Service: Peripheral Vascular; Laterality: Left; BARIATRIC SURGERY 2018 CARDIAC ELECTROPHYSIOLOGY STUDY AND ABLATION x5 CARDIAC PACEMAKER PLACEMENT 2016 CARDIAC SURGERY 2020 watchman device CARDIOVERSION 07/2024 CC PERIPHERAL ANGIOGRAPHY Left 07/2024 LE CHANGE DRESSING WOUND VAC Left 09/10/2024 Procedure: APPLICATION OF WOUND VAC; Surgeon: Dallas Camejo MD; Location: [facility] OR; Service: Orthopaedics; Laterality: Left; FOOT SURGERY Right x5 INCISION AND DRAINAGE FOOT Left OH PROCEDURE MAZE AFIB OSTECTOMY CALCANEOUS Left 09/10/2024 Procedure: ANKLE PARTIAL CALCANECTOMY; Surgeon: Dallas Camejo MD; Location: [facility] OR; Service: Orthopaedics; Laterality: Left; wOUND PARTIALLY CLOSED SUPERFICIALLY, WOUND VAC PLACED TOTAL KNEE ARTHROPLASTY Left 2015 REVISION SAME YEAR/INFECTION No family history on file. Social History Tobacco Use Smoking status: Former Current packs/day: 1.00 Average packs/day: 1 pack/day for 29.1 years (29.1 ttl pk-yrs) Types: Cigarettes Start date: 1976 Quit date: 2003 Smokeless tobacco: Never Substance Use Topics Alcohol use: Yes Alcohol/week: 21.0 standard drinks of alcohol Types: 21 Cans of beer per week Drug use: Never Allergies Allergen Reactions Lisinopril Other (See Comments) Dehydration Medications Prior to Admission Medications: Medications Prior to Admission Medication Sig Dispense Refill Last Dose acetaminophen (TYLENOL) 325 MG tablet Take 3 tablets (975 mg total) by mouth 4 times daily (every 6hours) as needed for mild pain. 168 tablet 0 amiODARONE (PACERONE) 200 MG tablet Take 1 tablet (200 mg total) by mouth 2 times a day. amLODIPine (NORVASC) 10 MG tablet Take 1 tablet (10 mg total) by mouth. amoxicillin (AMOXIL) 500 MG capsule Take 1 capsule (500 mg total) by mouth 3 (three) times a day. For 1 week for DENTAL procedures amoxicillin (AMOXIL) 500 MG tablet Take 2 tablets (1,000 mg total) by mouth 2 (two) times a day. For 14 days apixaban (ELIQUIS) 5 MG tablet Take 1 tablet (5 mg total) by mouth 2 times a day. ascorbic acid (VITAMIN C) 500 MG tablet Take 1 tablet (500 mg total) by mouth daily. 14 tablet 0 bumetanide (BUMEX) 2 MG tablet Take 1 tablet (2 mg total) by mouth daily. Cholecalciferol (Vitamin D-3) 125 MCG (5000 UT) Tab Take 2 tablets by mouth every morning. ciprofloxacin (CIPRO) 500 MG tablet Take 1 tablet (500 mg total) by mouth 2 (two) times a day. Continuous Glucose Sensor (SSP EuropeStyle Wallace 3 Sensor) [facility] INJECT 1 DEVICE INTO THE SKIN EVERY 14 DAYS cyanocobalamin 2500 MCG Tab Take 1 tablet (2,500 mcg total) by mouth daily. donepezil (ARICEPT) 10 MG tablet Take 1 tablet (10 mg total) by mouth every morning. glipiZIDE (GLUCOTROL) 2.5 mg tablet Take 1 tablet (2.5 mg total) by mouth 2 times a day. Jardiance 25 MG tablet Take 1 tablet (25 mg total) by mouth daily. Magnesium 250 MG Tab Take 250 mg by mouth every morning. melatonin 10 MG Tab tablet Take 5 mg by mouth nightly. metFORMIN (GLUCOPHAGE) 1000 MG tablet Take 0.5 tablets (500 mg total) by mouth every morning with breakfast. metFORMIN (GLUCOPHAGE) 500 MG tablet Take 1 tablet (500 mg total) by mouth every morning with breakfast. methocarbamol (ROBAXIN) 500 MG tablet Take 1 tablet (500 mg total) by mouth 4 (four) times a day asneeded for muscle spasms. 20 tablet 0 metoPROLOL TARTRATE (LOPRESSOR) 50 MG tablet Take 1 tablet (50 mg total) by mouth 2 times a day. nicotine (NICODERM CQ) 7 MG/24HR patch Place 1 patch on the skin daily. oxyCODONE (ROXICODONE) 5 MG immediate release tablet Take 1-2 tablets (5-10 mg total) by mouth every 4 (four) hours as needed for severe pain. Max Daily Amount: 60 mg 42 tablet 0 PANTOprazole (PROTONIX) 40 MG EC tablet Take 1 tablet (40 mg total) by mouth daily. polyethylene glycol (miraLAx) 17 g packet Take 1 packet (17 g total) by mouth daily. 10 packet 0 pravastatin (PRAVACHOL) 20 MG tablet Take 1 tablet (20 mg total) by mouth daily. pregabalin (LYRICA) 150 MG capsule Take 1 capsule (150 mg total) by mouth 2 times a day. senna (SENOKOT) 8.6 MG Tab tablet Take 2 tablets by mouth daily as needed for constipation. 14 tablet 0 sulfamethoxazole-trimethoprim (BACTRIM DS,SEPTRA DS) 800-160 MG per tablet Take 1 tablet by mouth 2(two) times a day. 28 tablet 0 Medication/MAR Report: Medications Scheduled Medication Ordered Dose/Rate, Route, Frequency Last Action acetaminophen (TYLENOL) tablet 975 mg 975 mg, PO, Q6H JUDSNO Given, 975 mg at 11/07 813 amiODARONE (PACERONE) tablet 200 mg 200 mg, PO, BID Given, 200 mg at 11/07 816 amLODIPine (NORVASC) tablet 10 mg 10 mg, PO, Daily Given, 10 mg at 11/07 816 aspirin enteric coated (ECOTRIN LOW STRENGTH) tablet 81 mg 81 mg, PO, Q12H JUDSON Given, 81 mg at 11/07 814 buPROPion (WELLBUTRIN SR) 12 hr tablet 150 mg 150 mg, PO, BID Given, 150 mg at 11/07 816 calcium citrate (CALCITRATE) tablet 950 mg 950 mg, PO, BID with meals Given, 950 mg at 11/06 182 ceftaroline (TEFLARO) 600 mg in sodium chloride (NS) 0.9 % 250 mL IVPB-WTD 600 mg, IV, Q8H Given, 600 mg at 11/07 105 cholecalciferol tablet 2,000 Units 2,000 Units, PO, Daily Given, 2,000 Units at 11/07 813 cyanocobalamin (VITAMIN B-12) tablet 2,500 mcg 2,500 mcg, PO, Daily Given, 2,500 mcg at 11/07 814 DAPTOmycin (CUBICIN) 975 mg in sodium chloride (NS) 0.9 % 50 mL IVPB 10 mg/kg, IV, Q24H Stopped, 11/06 1517 docusate sodium (COLACE) capsule 100 mg 100 mg, PO, BID Given, 100 mg at 11/07 814 donepezil (ARICEPT) tablet 10 mg 10 mg, PO, QAM Given, 10 mg at 11/07 815 [Provider Held] empagliflozin (JARDIANCE) 25 mg On hold since Fri11/04/2024 at 1503 until manually unheld; held by Juaquin Kern MDHold Reason: Pre-procedure On hold since Fri11/04/2024 at 1503 until manually unheld (Needs Review) Hold reason: Pre-procedure 25 mg, PO, Daily Given, 25 mg at 11/04 755 folic acid (FOLVITE) tablet 1 mg 1 mg, PO, Daily Given, 1 mg at 11/07 815 [Provider Held] glimepiride (AMARYL) tablet 2 mg On hold since Fri11/04/2024 at 1503 until manually unheld; held by Juaquin Kern MDHold Reason: Pre-procedure On hold since Fri11/04/2024 at 1503 until manually unheld (Needs Review) Hold reason: Pre-procedure 2 mg, PO, Daily with breakfast Given, 2 mg at 11/04 756 insulin lispro (HumaLOG/ADMELOG) 100 units/mL injection 1-4 Units 1-4 Units, SC, NIGHTLY & 2AM Given, 1 Units at 11/07 212 insulin lispro (HumaLOG/ADMELOG) 100 units/mL injection 1-6 Units 1-6 Units, SC, TID with meals Given, 2 Units at 11/07 809 [Provider Held] metFORMIN (GLUCOPHAGE) tablet 500 mg On hold since Fri11/04/2024 at 1503 until manually unheld; held by Gayle Rey Reason: Pre-procedure On hold since Fri11/04/2024 at 1503 until manually unheld (Needs Review) Hold reason: Pre-procedure 500 mg, PO, Daily with breakfast Given, 500 mg at 11/04 755 methocarbamol (ROBAXIN) tablet 1,000 mg 1,000 mg, PO, 4x Daily Given, 1,000 mg at 11/07 816 metoPROLOL TARTRATE (LOPRESSOR) tablet 50 mg 50 mg, PO, BID Given, 50 mg at 11/07 816 multivitamin with minerals tablet 1 tablet 1 tablet, PO, Daily Given, 1 tablet at 11/07 817 nicotine (NICODERM CQ) 21 MG/24HR patch 1 patch 1 patch, TD, Daily Patch Applied, 1 patch at 11/07 809 PANTOprazole (PROTONIX) EC tablet 40 mg 40 mg, PO, Daily Given, 40 mg at 11/07 814 [Provider Held] pravastatin (PRAVACHOL) tablet 20 mg On hold since Fri11/03/2024 at 0850 until manually unheld; held by Gayle Rose Reason: Other - Comment requiredHold Comments: While on IV daptomycin On hold since Fri11/03/2024 at 0850 until manually unheld (Needs Review) Hold reason: Other - Comment required, Hold comment: While on IV daptomycin 20 mg, PO, Daily Ordered pregabalin (LYRICA) capsule 150 mg 150 mg, PO, TID Given, 150 mg at 11/07 817 senna (SENOKOT) tablet 2 tablet 2 tablet, PO, Nightly Given, 2 tablet at 11/06 2107 senna-docusate (SENNA-S) 8.6-50 MG tablet 2 tablet 2 tablet, PO, BID Given, 2 tablet at 11/07 817 thiamine mononitrate (VITAMIN B-1) tablet 200 mg 200 mg, PO, Daily Given, 200 mg at 11/07 813 Continuous Medication Ordered Dose/Rate, Route, Frequency Last Action [Provider Held] lactated ringers (LR) infusion On hold since yesterday at 1058 until manually unheld; held by Ry Velasquez Reason: Other - Comment requiredHold Comments: Held percardiolgy On hold since yesterday at 1058 until manually unheld (Needs Review) Hold reason: Other - Comment required, Hold comment: Held per cardiolgy 100 mL/hr, IV, Continuous Stopped, 11/06 1100 [Provider Held] lactated ringers (LR) infusion On hold since yesterday at 1058 until manually unheld; held by Ry Velasquez Reason: Other - Comment required On hold since yesterday at 1058 until manually unheld (Needs Review) Hold reason: Other - Comment required 100 mL/hr, IV, Continuous Stopped, 11/06 1226 bumetanide (BUMEX) IV infusion 12.5 mg in 50 mL 0.5 mg/hr, IV, Continuous Ordered PRN Medication Ordered Dose/Rate, Route, Frequency Last Action bisacodyl (DULCOLAX) EC tablet 5 mg 5 mg, PO, Daily PRN Ordered bisacodyl (DULCOLAX) suppository 10 mg 10 mg, RE, Daily PRN Ordered bisacodyl (DULCOLAX) suppository 10 mg 10 mg, RE, Daily PRN Ordered calcium carbonate (TUMS) chewable tablet 1,000 mg 1,000 mg, PO, Q12H PRN Ordered dextrose 50 % solution 12.5 g (Or Linked Group #1) 12.5 g, IV, Q15 Min PRN Ordered dextrose 50 % solution 25 g (Or Linked Group #1) 25 g, IV, Q15 Min PRN Ordered diazepam (VALIUM) injection 10 mg (Or Linked Group #2) 10 mg, IV, Q15 Min PRN Ordered diazepam (VALIUM) injection 20 mg (Or Linked Group #2) 20 mg, IV, Q15 Min PRN Ordered diazepam (VALIUM) injection 20 mg (Or Linked Group #3) 20 mg, IV, Daily PRN Ordered diazepam (VALIUM) injection 40 mg (Or Linked Group #3) 40 mg, IV, Daily PRN Ordered glucagon (GLUCAGEN) injection 1 mg (Or Linked Group #1) 1 mg, IM, Daily PRN Ordered glucose (GLUTOSE 15) 40 % oral gel 37.5 g (Or Linked Group #1) 1 Tube, PO, Q15 Min PRN Ordered glucose (GLUTOSE 15) 40 % oral gel 75 g (Or Linked Group #1) 2 Tube, PO, Q15 Min PRN Ordered HYDROmorphone (DILAUDID) tablet 2 mg 2 mg, PO, Q3H PRN Ordered HYDROmorphone (DILAUDID) tablet 4 mg 4 mg, PO, Q3H PRN Given, 4 mg at 11/07 0629 ipratropium-albuterol (DUONEB) 0.5-2.5 mg/3 mL nebulizer solution 3 mL 3 mL, NEBULIZATION, Q2H PRN Given, 3 mL at 11/07 1025 lactulose (ENULOSE) 10 gm/15 mL solution 20 g 20 g, PO, Q4H PRN Ordered magnesium hydroxide (MILK OF MAGNESIA) 400 mg/5 mL suspension 30 mL 30 mL, PO, Q12H PRN Ordered magnesium hydroxide (MILK OF MAGNESIA) 400 mg/5 mL suspension 30 mL 30 mL, PO, Daily PRN Ordered melatonin tablet 3 mg 3 mg, PO, Nightly PRN Ordered mineral oil (FLEET OIL) enema 1 enema 1 enema, RE, Daily PRN Ordered naloxone (NARCAN) 0.4 mg/mL injection 0.4 mg 0.4 mg, IV, Q5 Min PRN Ordered ondansetron (ZOFRAN) injection 4 mg 4 mg, IV, Q6H PRN Ordered ondansetron (ZOFRAN-ODT) disintegrating tablet 4 mg 4 mg, PO, Q6H PRN Ordered polyethylene glycol (miraLAx) packet 17 g 17 g, PO, Daily PRN Ordered polyethylene glycol (miraLAx) packet 17 g 17 g, PO, Daily PRN Ordered Physical Exam Vitals: 11/06/24 2138 11/07/24 0600 11/07/24 0935 11/07/24 1028 BP: (!) 148/65 121/62 BP Location: Right arm Right arm Patient Position: Sitting Lying Pulse: 60 60 Resp: 18 16 Temp: 36.2 ??C (97.1 ??F) 36.2 ??C (97.2 ??F) TempSrc: Tympanic Tympanic SpO2: 95% 94% 92% (!) 90% Weight: Intake/Output Summary (Last 24 hours) at 11/07/2024 1105 Last data filed at 11/07/2024 1000 Gross per 24 hour Intake 6290 ml Output 1700 ml Net 4590 ml PE: NEURO- Aox3 PULM- CTABL MSK- mild pain to lateral portion of left lower extremity Labs: Recent Labs 11/04/24 1119 11/05/24 0712 11/06/24 0458 11/07/24 0813 HCT 28.0* 28.3* 27.9* 28.9* HGB 8.7* 9.1* 8.7* 8.9* WBC 13.4* 15.9* 11.9* 12.4* PLT 326 353 346 430 . Recent Labs 02/04/22 71211/06/2445711/07/24812 NA 130* 131* 129* K 3.4 3.8 3.9 CO2 19* 20* 22 CL 96* 99 94* BUN 47* 48* 47* CREAT 2.0* 1.7* 1.5* CALCIUM 7.9* 7.8* 8.3* MG -- 2.5 2.3 PHOS -- 5.1* 4.3 . Recent Labs 11/05/24711 INR 1.3 . Recent Labs 11/05/2471111/07/24812 CKTOTAL 49 -- PROBNP -- 3,427* . Recent Labs 11/05/2471111/06/2445711/07/24812 ALT 23 31 29 AST 26 50 28 ALKPHOS 153* 270* 220* ALBUMIN 2.5* 2.4* 2.6* . No results for input(s): CHOL , TRIG , HDL , ESTLDL , CHOLHDLRAT in the last 72 hours.. No results for input(s): PHA , PCO2 , PO2 , HCO3 , BASEEX , BEART , CALCSAT , O2SAT in thelast 72 hours.. Imaging Studies: XR Chest 1 view-Portable (STAT) Result Date: 11/07/2024 EXAMINATION: XR CHEST CLINICAL INFORMATION: SOB, fluid overload COMPARISON: Chest radiograph November 04, 2024. TECHNIQUE: Frontal view of the chest was obtained. FINDINGS: Left pectoral pacemaker leads are intact in similar position to prior. Worsening airspace opacities overlying the bilateral upper lung ta with associated bronchial wall thickening compared to prior.. Normal pulmonary vascularity. No pleural effusion or pneumothorax. Normal and unchanged cardiomediastinal silhouette. Surgical clips overlie the mid upper abdomen. Worsening bilateral upper lung field airspace opacities and bronchial wall thickening compared to prior. Interpreted by: Roberto Tolbert MD Erosion Control Specialist Sign: Lei Diaz MD 11/07/2024 11:05 AM * Laura Blanco, PT - 11/07/2024 10:42 AM EST Physical Therapy Progress Note Flowsheet Data 11/07/24 1042 Physical Therapy Time and Intention PT Visit Type medically inappropriate PT Follow-Up Visit medically inappropriate Pt's spenser reviewed prior to attempting PT follow up. Per discussion with pt's MD and RN, pt is medically inappropriate for PT session today as he is being evaluated for a transfer to a step down unit. PT will follow up as appropriate. Sign: Laura Blanco, PT * Marlin Martinez OT - 11/07/2024 10:38 AM EST Occupational Therapy Contact Note Chart reviewed prior to attempted Occupational Therapy follow up. Per provider/RN at bedside, patient is medically inappropriate for therapy on this date secondary to being evaluated for transfer to step down. Will follow up for occupational therapy as appropriate. Flowsheet Data 11/07/24 1038 OT Time and Intention OT Follow-Up Visit medically inappropriate Mode of Treatment occupational therapy Sign: Marlin Martinez, OT * Juaquin Kern MD - 11/07/2024 7:25 AM EST Images from the original note were not included. [facility] MEDICINE PROGRESS NOTE Assessment Mr. Blas Genao is a 63 y.o. year old male with a PMH significant for atrial flutter/fib, chronic diastolic CHF, diabetes, hypertension, hyperlipidemia, CPAP, PAD, CKD 3, MERVIN on CPAP who presented as direct admit with plans for left BKA on 11/05 secondary to calcaneal osteomyelitis. Cardiology was recommending TATIANNA prior to operation attempted to get TATIANNA done early in the morning however overnight patient decompensated a bit requiring oxygen spiking fevers. Joint decision was made that left BKA should proceed without TATIANNA due to risk of not having control of the source of infection. Left BKA 11/05. 11/07 Overnight pt developed SOB and had fine rales, Reached out to cards started bumex gtt, RT trialof duonebs. Pt on 6L oxymask with 88%. SDU evaled started BiPap rescuse and transferred to [facility]. Plan Principal Problem: Acute osteomyelitis of left calcaneus (HCC) (POA: Yes) Active Problems: HTN (hypertension) (POA: Yes) A-fib (HCC) (POA: Yes) PAD (peripheral artery disease) (POA: Yes) MERVIN on CPAP (POA: Yes) Diabetes (HCC) (POA: Yes) Stage 3a chronic kidney disease (CKD) (HCC) (POA: Yes) Hyperlipidemia (POA: Yes) Smoker (POA: Yes) Chronic diastolic congestive heart failure (HCC) (POA: Yes) Osteomyelitis (HCC) (POA: Yes) CKD (chronic kidney disease) (Chronic) (POA: Yes) Bacteremia (POA: Unknown) Presence of permanent cardiac pacemaker (POA: Unknown) Mitral valve vegetation (POA: Unknown) Mitral valve regurgitation (POA: Unknown) Resolved Problems: Osteomyelitis of left calcaneal 2 Days Post-Op s/p LBKA Bacteremia S/p right TMA S/p calcaneal ostectomy 08/2024 with wound VAC and increasing pain Orthopedics is primary ID consulted expanded coverage to high-dose daptomycin and ceftaroline due to history of MDRO: ESBL, VRE -contact isolation. 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 With Watchman device. TTE: EF: 43%; mitral leaflets are moderately thickened. There is moderate to severe mitral regurgitation. Cannot rule out vegetation on the mitral valve leaflets. TATIANNA for Friday Head CT to rule out septic emboli blood culture: 11/02: Enterococcus faecalis-VRE, Enterococcus faecium-and VRE, MRSA Resume glimepiride, Jardiance, Bumex, metformin after surgery and eating Cardiology recc: High suspicion for MV endocarditis, high risk for septic emboli to brain. Patient may need bedside TATIANNA to assess valves consulting EP and CTS. Patient will likely need removal of PPM blood culture: 11/02: Enterococcus faecalis-VRE, Enterococcus faecium-and VRE, MRSA Blood Culture 11/04: Aerobic+ Blood Culture 11/06: Pending<24hrs Pain management via pharmacy Type II diabetes A1c 8.7 Metformin -don't restart inpatient Glimepiride-hold Sliding scale insulin Jardiance - Cr bumped holding Lantus needs to be restarted TABITHA - Improving Hyponatremia Baseline 1.1 CR 1.5 and stable Daily labs if worsen consider Nephro consult Acute on chronic CHF Hypertension A-fib/flutter S/p Watchman, pacemaker PVD Metoprolol 50 mg twice daily Amiodarone 200 mg twice daily Amlodipine 10 mg Aspirin daily Cardiology following EP and structural to see Pt as well Started Bumex gtt Rescue BiPap Alcohol Use Disorder Never had withdrawals, reports multiple times stopping for several days without problems. Last drink day before admission CIWA PRN protocol ordered Diet: Diet Diabetic/ Calorie Controlled; Carb Counting 60g/meal 5502-9821 kcal DVT Px: SCDs - RIGHT (Knee High) Status: Full Code Consults placed: Procedures Inpatient consult to Internal Medicine Inpatient consult to Infectious Diseases (Specify provider ) Inpatient consult to Social Work Inpatient consult to Anesthesiology Inpatient consult to cardiology ([facility]) Inpatient consult to cardiac surgery Inpatient consult to Cardiology ( EP Electrophysiology ) Social Work Consult Barriers for discharge: IV antibiotics, fevers, scheduled for left BKA on 11/05 Total time spent during this encounter including chart review, bedside encounter, discussing plan of care with patient/family, collaboration with other disciplines and specialties was 35 minutes. -Of note, some information is being carried forward from prior records for informational purposes only and has been cited so deficiency, safety and quality of this patient's care is not compromised. Quality Metrics Indication - DVT PROPHYLAXIS Risk Assessment Scores and Dates: VTE Time Out Orthopedics & NeuroSurgery VTE risk stratification: Standard or low risk (11/05/2024 12:44 PM) Chemical Prophylaxis Low VTE risk aspirin enteric coated (ECOTRIN LOW STRENGTH) tablet 81 mg Oral Every 12 hours scheduledChemical VTE prophylaxis NOT ordered. Click here to order if appropriate Enoxaparin Sodium 40 mg Last dose 11/04/2024 10:15 AM Mechanical Prophylaxis SCDs are ordered - RIGHT (Knee High)Mechanical VTE prophylaxis NOT ordered. Click here to order if appropriate Expected Date of Discharge 11/11/2024 Subjective Chief complaint No chief complaint on file. Patient is being seen for acute medical problems and follow-up for chronic medical issues as mentioned in the assessment and plan above. Overnight Events/Patient Discussion: Feeling shortness of breath and increased work of breathing. Patient now on 6 L nasal cannula satting in the mid to high 80s. Feels abdomen is bloated. Denies any vision changes. Currently no chest pain, nausea, vomiting, fever, chills, headache, lightheadedness, vision changes. Discussed with patient about his respiratory status and need for higher level of care. SDU physician bedside discussing patient's needs. Objective Vitals: 11/06/24 0908 11/06/24 1000 11/06/24 1400 11/06/24 1700 BP: 115/61 133/72 135/60 131/62 Pulse: 66 65 69 64 Resp: 16 16 20 Temp: (!) 93.1 ??F (33.9 ??C) (!) 95 ??F (35 ??C) (!) 95.4 ??F (35.2 ??C) SpO2: 96% 96% 94% 11/06/24 1853 11/06/24 2101 11/06/24 2138 11/07/24 0600 BP: 127/59 (!) 148/65 121/62 Pulse: 67 60 60 Resp: 18 16 Temp: 97.1 ??F (36.2 ??C) 97.2 ??F (36.2 ??C) SpO2: 95% 95% 94% I/O last 3 completed shifts: In: 6440 [P.O.:6420; I.V.:20] Out: 2701 [Urine:2701] No intake/output data recorded. Physical Exam Vitals and nursing note reviewed. Constitutional: General: He is not in acute distress. Appearance: Normal appearance. He is normal weight. He is ill-appearing. He is not toxic-appearing. HENT: Head: Normocephalic and atraumatic. Nose: Nose normal. Cardiovascular: Rate and Rhythm: Normal rate and regular rhythm. Pulses: Normal pulses. Heart sounds: Normal heart sounds. No murmur heard. Pulmonary: Effort: Respiratory distress present. Breath sounds: Rhonchi and rales present. No wheezing. Abdominal: General: Bowel sounds are normal. There is distension. Palpations: Abdomen is soft. Tenderness: There is no abdominal tenderness. There is no guarding. Musculoskeletal: Left lower leg: Edema present. Skin: General: Skin is warm and dry. Neurological: General: No focal deficit present. Mental Status: He is alert and oriented to person, place, and time. Psychiatric: Mood and Affect: Mood normal. Behavior: Behavior normal. Relevant data reviewed Results from last 7 days Lab Units 11/06/24 0458 WHITE BLOOD CELL COUNT Thou/uL 11.9* HEMOGLOBIN g/dL 8.7* HEMATOCRIT % 27.9* PLATELET COUNT Thou/uL 346 Results from last 7 days Lab Units 11/07/24 0207 11/06/24 0751 11/06/24 0458 SODIUM mmol/L -- -- 131* POTASSIUM mmol/L -- -- 3.8 CHLORIDE mmol/L -- -- 99 CO2 mmol/L -- -- 20* BUN mg/dL -- -- 48* CREATININE mg/dL -- -- 1.7* EGFR -- -- 45* GLUCOSE mg/dL -- -- 194* GLUCOSE, POC mg/dL 231* < > -- CALCIUM mg/dL -- -- 7.8* < > = values in this interval not displayed. Results from last 7 days Lab Units 11/06/24 0458 11/05/24 0712 ALT U/L 31 23 AST U/L 50 26 ALK PHOS U/L 270* 153* BILIRUBIN TOTAL mg/dL 0.2 0.3 BILIRUBIN DIRECT mg/dL -- 0.2 No results found for: PROBNP Lab Results Component Value Date HGBA1C 8.7 (H) 09/03/2024 No results found for: LABBLOO No results found. Signature Juaquin Kern MD 11/07/2024 7:25 AM * Aditi Amaro PA-C - 11/07/2024 6:00 AM EST Orthopedic Progress Note Principal Problem: Acute osteomyelitis of left calcaneus (HCC) (POA: Yes) Active Problems: HTN (hypertension) (POA: Yes) A-fib (HCC) (POA: Yes) PAD (peripheral artery disease) (POA: Yes) MERVIN on CPAP (POA: Yes) Diabetes (HCC) (POA: Yes) Stage 3a chronic kidney disease (CKD) (HCC) (POA: Yes) Hyperlipidemia (POA: Yes) Smoker (POA: Yes) Chronic diastolic congestive heart failure (HCC) (POA: Yes) Osteomyelitis (HCC) (POA: Yes) CKD (chronic kidney disease) (Chronic) (POA: Yes) Bacteremia (POA: Unknown) Presence of permanent cardiac pacemaker (POA: Unknown) Mitral valve vegetation (POA: Unknown) Mitral valve regurgitation (POA: Unknown) Resolved Problems: Assessment & Plan Assessment 63 y.o. male POD#2 Surgical/Procedural Cases on this Admission Case IDs Date Procedure Surgeon Location Status [id number] 11/05/24 LEFT BELOW KNEE AMPUTATION Dallas Camejo MD [facility] OR Comp Plan WB Status: NWB left lower extremity. Demo Coordinator stump coil winder repair in place. Appreciate PT and OT recommendations. DVT Prophylaxis: ASA 81mg PO BID / SCDs VTE Risk: Orthopedics & NeuroSurgery VTE risk stratification: Standard or low risk (11/05/2024 12:44 PM) Pain management: Multimodal; appreciate Pharmacy Pain recommendations ABX in house: Currently on daptomycin/ceftaroline - appreciate ID recs Diet: Advance as tolerated / diabetic diet; NPO at midnight for TATIANNA Insulin sliding scale [ ] TATIANNA -- Wednesday 11/08 [ ] Head CT w/ contrast per Cardiology -- to rule out septic emboli [ ] Blood cultures: - 11/04, 11/06: NGTD - 11/02: MRSA, Enterococcus faecalis, Enterococcus faecium Bowel regimen. GI prophylaxis. Incentive spirometry. Consults: Internal Medicine, Infectious Disease, Cardiology, Pharmacy Pain - appreciate recs Dispo: Planning ongoing. Plan to follow up with Dr. Camejo for post op surgical site check. Subjective Patient is alert and comfortable, and reports that his pain has been tolerable overnight with pain medication. Nursing reports visual changes (seeing colors) overnight; patient currently denies symptoms. There were no other events overnight per nursing. He feels the LE swelling is improving. He states he was previously experiencing night sweats that felt like heroin withdrawal , but states symptoms have improved since Friday. He is voiding spontaneously. He has been tolerating diet as ordered.He denies chest pain, shortness of breath, nausea/vomiting, abdominal pain, and dizziness. Objective Last Vitals Pulse:60,Resp:16,BP:121/62,SpO2:94 %,Weight:120 kg (264 lb 8 oz) Temp Last 24 hrs: Temp Min: 93.1 ??F (33.9 ??C) Max: 97.2 ??F (36.2 ??C) Intake/Output Summary (Last 24 hours) at 11/07/2024 0840 Last data filed at 11/07/2024 0600 Gross per 24 hour Intake 6070 ml Output 1101 ml Net 4969 ml Physical Exam General: NAD. Sitting in bed, alert and oriented. LE: Dressing clean, dry, and intact. Demo Coordinator stump coil winder repair in place. Labs: Recent Labs 11/05/24 0712 11/06/24 0458 HCT 28.3* 27.9* HGB 9.1* 8.7* INR 1.3 -- CREAT 2.0* 1.7* Sign Aditi Amaro PA-C 11/07/2024 8:40 AM * Deep Bales PharmD - 11/06/2024 2:29 PM ESTSummary: Pain Management Assessment Sebastien is a 63YOM POD#1 s/p L BKA. I was unable to speak to the patient as pain management is unavaible over the weekends but I was able to go over the chart to make some suggestions. BP has been WNL and Scr is 1.7 Plan - Consider increasing pregabalin from 150 mg BID to 150mg TID and discontinuing gabapentin. The increased frequency should be able to provide more consistent levels and should provider better neuropathic relief. I would prefer to maximize a single gabapentinoid rather than starting two agents. The patient has previously used and benefited from pregabalin. I think this would be the better agent toup titrate to find relief. - Consider increasing and scheduling methocarbamol to 1000mg QID. The patient is likely experiencing considerable muscle spasms post-op. Having a baseline of muscle relief is likely necessary. I would personally schedule the medication around the clock even if you prefer not to increase the dose. -Continue APAP as ordered - Continue PRN Hydromorphone as ordered. The patient did not appear to find relief with the oxycodone. Changing to dilaudid is reasonable. Continue to monitor pain levels and sedation. Deep Bales PharmD * Jessica Daily PT - 11/06/2024 11:42 AM EST Physical Therapy Initial Evaluation Current Diagnosis and Pertinent Medical History: Blas Genao is a 63 y.o. male seen POD 1 L BKA Precautions/Restrictions: fall, weight bearing (NWB) Previous Level Of Function/Home Environment Home Environment: Living Arrangements: home People In Home: alone Prior Level Of Function: Household Mobility: independent, uses device or equipment Community Mobility: independent, uses device or equipment Equipment Used at Home: tub bench (knee scooter, floor to ceiling garb bars) Assessment & Plan Assessment: Pt met supine in bed, agreeable to work with PT/OT. Pt verbalizing understanding for NWB LLE and experiencing phantom limb pain. Independent with bed mobility. Needing Ax1-2 for transfer training to commode with use of RW. Performed squat pivot transfer back to bed with Ax1. Demonstrates decreased strength, balance, ROM, functional mobility and increased pain. Pt presents below baseline level of function and will benefit from skilled PT to maximize level of function. Pt left supine in bed at end of session with call ling in reach, bed alarm on. Pt will need wheelchair for mobility upon transition from hospital due to high risk for falls and fair activity tolerance. Patient would benefit from ongoing physical therapy services at home to address acute impairments of decreased strength, balance,functional mobility following hospital stay. Patient is currently below prior level of function and has potential to achieve goal of maximizing functional independence with continuation of skilled physical therapy intervention. If transitioning to home, patient will require wheelchair, commode, home services, assist. Rehab Plan of Care: PT will continue to follow pt during hospital stay to address identified impairments, maximize functional independence and facilitate safe discharge. PT plan to progress standing mobility/assess gaitin subsequent session(s) in order to determine most appropriate d/c plan. PT Recommendations for Staff: bed<>chair stand pivot transfer with Ax2, NWB LLE PT Frequency during Hospitalization: 5 times/wk Plan of Care Reviewed With: patient Outcome Measures The Activity Measure for Post-Acute Care (AM-PAC) Basic Mobility Inpatient Short Form (6-clicks) zakiya standardized measure used to quantify functional deficits in mobility. The total score of the measure ranges from 6-24. A higher score indicates a higher level of independence with functional mobility. Baseline [facility] Basic Mobility Score: 24 Current [facility] Basic Mobility Score: 16 Objective Data ROM: L knee ROM WFL MMT: DNT LLE due to recent BKA and NWB status Sensation: endorsing phantom limb pain in LLE Bed Mobility: supine<>sit independent Transfers: - sit<>stand to RW with Min AX2 from elevated bed height and from commode at bedside - hop pivot transfer bed>commode to L side with RW and Min Ax2, increased time needed for line management and to manage balance with use of RW - squat pivot transfer commode>bed with Min AX1, cues for sequencing/safety with fair carryover Balance: static sitting - good dynamic sitting - good static standing - fair with RW dynamic standing - poor with RW, assist needed to steady patient to hop pivot to commode Activity Tolerance: good for eval. Patient performed all activity on 4L NC. No reports of SOB, dizziness, nausea Education: Role of PT, purpose of evaluation and POC. Subjective Krystle adapted my home pretty well Past Medical/Surgery History Past Medical History: Diagnosis Date A-fib ([facility]) Acute osteomyelitis ([facility]) Atrial flutter ([facility]) Cardiac pacemaker 2016 Carotid atherosclerosis Charcot's joint of right foot 2015 Chronic sciatica Complete AV block ([facility]) Diabetes mellitus ([facility]) TYPE II Diabetic foot ulcer ([facility]) ED (erectile dysfunction) Edema ESBL (extended spectrum beta-lactamase) producing bacteria infection GERD (gastroesophageal reflux disease) GI bleed Hyperlipidemia Hypertension Leukocytosis Metabolic bone disease Multiple drug resistant organism (MDRO) culture positive Non healing left heel wound Obesity Osteoarthrosis Osteomyelitis of both feet ([facility]) PAD (peripheral artery disease) ([facility]) Primary osteoarthritis of knee Proteinuria Renal osteodystrophy Restless legs syndrome (RLS) no meds, lyrica helps Septic joint of left knee joint ([facility]) Sleep apnea BiPap Smoker Stage 3a chronic kidney disease (CKD) ([facility]) Past Surgical History: Procedure Laterality Date AMPUTATION Right 2017 TMA AORTOGRAM- ABDOMINAL Left 09/15/2024 Procedure: LEFT LOWER EXTREMITY ANGIOGRAM; Surgeon: Delbert Mcintosh MD; Location: Main OR; Service: Peripheral Vascular; Laterality: Left; BARIATRIC SURGERY 2018 CARDIAC ELECTROPHYSIOLOGY STUDY AND ABLATION x5 CARDIAC PACEMAKER PLACEMENT 2016 CARDIAC SURGERY 2020 watchman device CARDIOVERSION 07/2024 CC PERIPHERAL ANGIOGRAPHY Left 07/2024 LE CHANGE DRESSING WOUND VAC Left 09/10/2024 Procedure: APPLICATION OF WOUND VAC; Surgeon: Dallas Camejo MD; Location: [facility]; Service: Orthopaedics; Laterality: Left; FOOT SURGERY Right x5 INCISION AND DRAINAGE FOOT Left OH PROCEDURE MAZE AFIB OSTECTOMY CALCANEOUS Left 09/10/2024 Procedure: ANKLE PARTIAL CALCANECTOMY; Surgeon: Dallas Camejo MD; Location: [facility] OR; Service: Orthopaedics; Laterality: Left; wOUND PARTIALLY CLOSED SUPERFICIALLY, WOUND VAC PLACED TOTAL KNEE ARTHROPLASTY Left 2016 REVISION SAME YEAR/INFECTION Flowsheet Data 11/06/24 1142 Physical Therapy Time and Intention PT Visit Type initial evaluation Mode of Treatment co-treatment;physical therapy Patient Effort good Symptoms Noted During/After Treatment increased pain General Information Patient Profile Reviewed yes Onset of Illness/Injury or Date of Surgery 11/05/24 Referring Physician tamera Patient/Family/Caregiver Comments/Observations what I need is a wheelchair. General Observations of Patient pt met supine in bed, ageeable to work with PT Pertinent History of Current Functional Problem pt is POD 1 L BKA Existing Precautions/Restrictions fall;weight bearing Previous Level of Function/Home Environm Bed Mobility, Premorbid Functional Level independent Transfers, Premorbid Functional Level independent;uses device or equipment Household Ambulation, Premorbid Functional Level independent;uses device or equipment Stairs, Premorbid Functional Level independent;uses device or equipment Community Ambulation, Premorbid Functional Level independent;uses device or equipment Living Environment Current Living Arrangements home Home Accessibility wheelchair accessible People in Home alone Home Use of Assistive/Adaptive Equipment Equipment Currently Used at Home tub bench;walker, rolling;other (see comments) (knee scooter) Pain Additional Documentation Pain Scale: Word Pre/Post-Treatment (Group) Pain Scale: Word Pre/Post-Treatment Pre/Posttreatment Pain Comment endorses phantom limb pain Mobility Left Lower Extremity (Weight-bearing Status) non weight-bearing (NWB) Health Promotion Additional Documentation Coping (Group);Plan of Care Review (Group) Coping Trust Relationship/Rapport care explained Observed Emotional State calm;cooperative Verbalized Emotional State acceptance Plan of Care Review Plan of Care Reviewed With patient Safety All Alarms alarm(s) activated and audible Enhanced Safety Measures bed alarm set Progressive Mobility Progressive Mobility Level Achieved Transferring to Chair AMPA Basic Mobility Turning from your back to your side while in a flat bed without using bedrails? 4 Moving from lying on your back to sitting on the side of a flat bed without using bedrails? 4 Moving to and from a bed to a chair (including wheelchair)? 2 Standing up from a chair using your arms? 3 To walk in a hospital room? 2 Climbing 3-5 steps with a railing? 1 [facility] Basic Mobility Score 16 Therapy Assessment/Plan (PT) Patient/Family Therapy Goals Statement (PT) to go home Functional Level at Time of Evaluation (PT) transferring to chair PT Diagnosis (PT) impaired functional mobility, balance Rehab Potential (PT) good Criteria for Skilled Interventions Met (PT) yes Therapy Frequency (PT) 5 times/wk PT Recommendations for Staff bed<>chair stand pivot transfer with Ax2, NWB LLE Predicted Duration of Therapy Intervention (PT) LOS Planned Therapy Interventions (PT) balance training;bed mobility training;gait training;home exercise program;neuromuscular re-education;patient/family education;ROM (range of motion);stair training;strengthening;stretching;transfer training;wheelchair management/propulsion training Problem List (PT) problems related to;balance;mobility;postural control Therapy Plan Review/Discharge Plan (PT) Therapy Plan Review (PT) evaluation/treatment results reviewed;care plan/treatment goals reviewed;risks/benefits reviewed;current/potential barriers reviewed;participants voiced agreement with care plan;participants included;patient Anticipated Equipment Needs at Discharge (PT) wheelchair;wheelchair cushion;commode chair Physical Therapy Goals Transfer Goal Selection (PT) transfer, PT goal 1 Gait Training Goal Selection (PT) gait training, PT goal 1 Wheelchair Locomotion Goal Selection (PT) wheelchair locomotion, PT goal 1 Transfer Goal 1 (PT) Moffat Level/Cues Needed (Transfer Goal 1, PT) supervision required Time Frame (Transfer Goal 1, PT) 1 week Activity/Assistive Device (Transfer Goal 1, PT) wvv-ak-bwoiu/lqzde-jg-odc;kkw-jl-uutmw/hfmuc-pd-hst;wheelchair transfer;walker, rolling Gait Training Goal 1 (PT) Time Frame (Gait Training Goal 1, PT) 1 week Moffat Level (Gait Training Goal 1, PT) supervision required Activity/Assistive Device (Gait Training Goal 1, PT) gait (walking locomotion);assistive device use;maintain weight-bearing status;increase energy conservation;increase endurance/gait distance;walker, rolling Distance (Gait Training Goal 1, PT) 20 Wheelchair Locomotion Goal 1 (PT) Moffat Level/Cues Needed (Wheelchair Locomotion Goal 1, PT) supervision required Time Frame (Wheelchair Locomotion Goal 1, PT) 1 week Activity (Wheelchair Locomotion Goal 1, PT) wheelchair mobility skills, all Distance Goal 1 (Wheelchair Locomotion, PT) 200 Sign: Jessica Daily PT * Chris Taylor MD - 11/06/2024 10:58 AM EST Images from the original note were not included. Coverage for Dr. Mtz [facility] Progress Note Name: Blas Genao Age: 63 y.o. 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 ID was consulted on 11/03-> recommended to start daptomycin/meropenem given prior history of MDRO's and follow cultures. 1. Polymicrobial bacteremia: Source is the left foot infection and osteomyelitis, now postop day #1s/p left below-knee amputation -10/27: Left foot wound culture at [place]: MRSA, Enterococcus faecalis, VRE, Corynebacterium species and gram-negative bacilli on Gram stain 2. 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 Fever/leukocytosis secondary to bacteremia/left foot infection:; Afebrile with WBC 11.9 4. History of atrial fibrillation s/p Watchman device implantation in 2018 5. AMS 6. Vision issues 7. TABITHA. -Right TMA wounds with with chronic wounds 9. Inflammatory markers CRP 29.62, ESR 79 10. Antibiotics -Daptomycin, 11/03 -Meropenem, 11/03-11/05 -Ceftaroline, 11/05 Plan: -Source control achieved with left BKA -Repeat blood cultures are negative to date -Patient denies visual symptoms. 1. Continue daptomycin/ceftaroline 2. TATIANNA to be pursued 3. He will eventually require PPM extraction 4. Follow repeat blood cultures 5. CT head pending Communicated with hospitalist ANTIBIOTIC TIME OUT Current antibiotic/day of therapy: Anti-infectives (From admission, onward) Start Dose/Rate Route Frequency Ordered Stop 11/05/24 1100 ceftaroline (TEFLARO) 600 mg in sodium chloride (NS) 0.9 % 250 mL IVPB-WTD 600 mg 250 mL/hr over 60 Minutes Intravenous Every 8 hours 11/05/24 1040 11/03/24 0900 DAPTOmycin (CUBICIN) 975 mg in sodium chloride (NS) 0.9 % 50 mL IVPB 10 mg/kg ?? 97.3 kg (Adjusted) 139 mL/hr over 30 Minutes Intravenous Every 24 hours 11/03/24 0849 OBJECTIVE Physical Examination: Vitals: 11/06/24 1000 BP: 133/72 Pulse: 65 Resp: 16 Temp: (!) 93.1 ??F (33.9 ??C) SpO2: 96% Weight: General appearance - male Appears in good spirits. Talkative Lungs: Clear to auscultation bilaterally Cardiovascular: Rate rhythm regular Abdomen: Soft nontender Extremities: Left BKA amputation site covered with wrapped Right TMA site with chronic skin skin thickening LABORATORY AND DIAGNOSTIC DATA: Lab and imaging data were reviewed by me Results from last 7 days Lab Units 11/06/24 0458 11/05/24 0712 11/04/24 1119 11/02/24 2000 WHITE BLOOD CELL COUNT Thou/uL 11.9* 15.9* 13.4* 14.3* HEMOGLOBIN g/dL 8.7* 9.1* 8.7* 9.3* HEMATOCRIT % 27.9* 28.3* 28.0* 29.3* PLATELET COUNT Thou/uL 346 353 326 395 NEUTROS PCT % 88.8 -- -- 81.9 LYMPHS PCT % 3.4 -- -- 4.8 MONOS PCT % 6.6 -- -- 12.2 EOS PCT % 0.0 -- -- 0.1 BASOS PCT % 0.1 -- -- 0.4 Results from last 7 days Lab Units 11/06/24 0751 11/06/24 0458 11/06/24 0117 11/05/24 1254 11/05/24 0712 11/04/24 1243 11/04/24 1050 11/02/24 2119 11/02/24 2000 SODIUM mmol/L -- 131* -- -- 130* -- 130* -- 130* POTASSIUM mmol/L -- 3.8 -- -- 3.4 -- 3.7 -- 4.0 CHLORIDE mmol/L -- 99 -- -- 96* -- 95* -- 92* CO2 mmol/L -- 20* -- -- 19* -- 21* -- 19* BUN mg/dL -- 48* -- -- 47* -- 48* -- 41* CREATININE mg/dL -- 1.7* -- -- 2.0* -- 2.0* -- 2.0* CALCIUM mg/dL -- 7.8* -- -- 7.9* -- 7.7* -- 8.5* GLUCOSE mg/dL -- 194* -- -- 146* -- 184* -- 171* GLUCOSE, POC mg/dL 210* -- 229* < > -- < > -- < > -- EGFR -- 45* -- -- 37* -- 37* -- 37* ALBUMIN g/dL -- 2.4* -- -- 2.5* -- -- -- 3.2* PROTEIN, TOTAL g/dL -- 5.7* -- -- 5.9* -- -- -- -- BILIRUBIN TOTAL mg/dL -- 0.2 -- -- 0.3 -- -- -- -- ALK PHOS U/L -- 270* -- -- 153* -- -- -- -- ALT U/L -- 31 -- -- 23 -- -- -- -- AST U/L -- 50 -- -- 26 -- -- -- -- < > = values in this interval not displayed. Lab Results Component Value Date ALT 31 11/06/2024 AST 50 11/06/2024 ALKPHOS 270 (H) 11/06/2024 BILITOT 0.2 11/06/2024 Results from last 7 days Lab Units 11/05/24 0712 PROTHROMBIN TIME (PT) seconds 15.3* INR 1.3 Creatine Kinase (CK) Date Value Ref Range Status 11/05/2024 49 24 - 204 U/L Final 11/03/2024 61 24 - 204 U/L Final Lab Results Component Value Date SEDRATE 79 (H) 11/02/2024 Lab Results Component Value Date CRP 29.62 (H) 11/02/2024 Blood Cultures: Lab Results Component Value Date CULTURE Sterile after 2 days 11/04/2024 CULTURE Sterile after 2 days 11/04/2024 Urine Cultures: No results found for: CRYSUA , HYALNCSTUA , UROBILINOGEN , BILIUA , BLOODUA , CLARITYUA , COLORUA , UACOMMENT , GLUCU , KETONESUA , LEUKOCYTESUA , NITRITEUA , PHUA , PROTEINUA , RBCUA , SPECIMEN , SPECGRAVUA , SQEPIUA , WBCUA OTHER MICROBIOLOGY: C. Difficile: No results found for: CDIFFTOX , NAP1 Imaging Studies XR Foot 1 view-Left Result Date: 11/02/2024 This exam was performed in office at [facility] and images reviewed by orthopedic provider. Any findings are documented within ambulatory encounter note on date of service. Current Medications: Current Facility-Administered Medications Medication Dose Route Frequency Provider Last Rate Last Admin sodium chloride (NS) 0.9 % infusion - ADS Override Pull sodium chloride (NS) 0.9 % infusion - ADS Override Pull [Provider Held] lactated ringers (LR) infusion 100 mL/hr Intravenous Continuous POOJA De Souza Held at 11/05/24 2300 [Provider Held] lactated ringers (LR) infusion 100 mL/hr Intravenous Continuous POOJA De Souza acetaminophen (TYLENOL) tablet 975 mg 975 mg Oral Q6H [facility] POOJA De Souza 975 mg at 11/05/24 0650 acetaminophen (TYLENOL) tablet 975 mg 975 mg Oral Q8H [facility] POOJA De Souza 975 mg at 11/06/24 0513 amiODARONE (PACERONE) tablet 200 mg 200 mg Oral BID POOJA De Souza 200 mg at 11/06/24 0909 amLODIPine (NORVASC) tablet 10 mg 10 mg Oral Daily POOJA De Souza 10 mg at 11/06/24 0908 aspirin enteric coated (ECOTRIN LOW STRENGTH) tablet 81 mg 81 mg Oral Q12H [facility] POOJA De Souza81 mg at 11/05/24 2103 bisacodyl (DULCOLAX) EC tablet 5 mg 5 mg Oral Daily PRN POOJA De Souza bisacodyl (DULCOLAX) suppository 10 mg 10 mg Rectal Daily PRN POOJA De Souza bisacodyl (DULCOLAX) suppository 10 mg 10 mg Rectal Daily PRN POOJA De Souza bumetanide (BUMEX) tablet 2 mg 2 mg Oral Daily Dallas Rivers PA-C 2 mg at 11/04/24 0755 buPROPion (WELLBUTRIN SR) 12 hr tablet 150 mg 150 mg Oral BID POOJA De Souza 150 mg at 11/06/24 0910 calcium carbonate (TUMS) chewable tablet 1,000 mg 1,000 mg Oral Q12H PRN POOJA De Souza calcium citrate (CALCITRATE) tablet 950 mg 950 mg Oral BID with meals POOJA De Souza 950 mg at 11/06/24 0909 ceftaroline (TEFLARO) 600 mg in sodium chloride (NS) 0.9 % 250 mL IVPB-WTD 600 mg Intravenous Q8H POOJA De Souza 600 mg at 11/06/24 0910 cholecalciferol tablet 2,000 Units 2,000 Units Oral Daily POOJA De Souza 2,000 Units at 11/06/24 0909 cyanocobalamin (VITAMIN B-12) tablet 2,500 mcg 2,500 mcg Oral Daily POOJA De Souza 2,500 mcg at 11/06/24 0910 DAPTOmycin (CUBICIN) 975 mg in sodium chloride (NS) 0.9 % 50 mL IVPB 10 mg/kg (Adjusted) Intravenous Q24H POOJA De Souza Stopped at 11/04/24 1418 glucose (GLUTOSE 15) 40 % oral gel 37.5 g 1 Tube Oral Q15 Min PRN POOJA De Souza Or glucose (GLUTOSE 15) 40 % oral gel 75 g 2 Tube Oral Q15 Min PRN POOJA De Souza Or dextrose 50 % solution 12.5 g 12.5 g Intravenous Q15 Min PRN POOJA De Souza Or dextrose 50 % solution 25 g 25 g Intravenous Q15 Min PRN POOJA De Souza Or glucagon (GLUCAGEN) injection 1 mg 1 mg Intramuscular Daily PRN POOJA De Souza diazepam (VALIUM) injection 20 mg 20 mg Intravenous Q15 Min PRN POOJA De Souza Or diazepam (VALIUM) injection 10 mg 10 mg Intravenous Q15 Min PRN POOJA De Souza diazepam (VALIUM) injection 40 mg 40 mg Intravenous Daily PRN POOJA De Souza Or diazepam (VALIUM) injection 20 mg 20 mg Intravenous Daily PRN POOJA De Souza docusate sodium (COLACE) capsule 100 mg 100 mg Oral BID POOJA De Souza 100 mg at 11/06/24 0909 donepezil (ARICEPT) tablet 10 mg 10 mg Oral QAM POOJA De Souza 10 mg at 11/06/24 0907 [Provider Held] empagliflozin (JARDIANCE) 25 mg 25 mg Oral Daily POOJA Arias 25 mg at 11/04/24 0756 folic acid (FOLVITE) tablet 1 mg 1 mg Oral Daily POOJA De Souza 1 mg at 11/06/24 0909 gabapentin (NEURONTIN) capsule 300 mg 300 mg Oral TID PRN POOJA De Souza [Provider Held] glimepiride (AMARYL) tablet 2 mg 2 mg Oral Daily with breakfast POOJA Arias 2 mg at 11/04/24 0757 insulin lispro (HumaLOG/ADMELOG) 100 units/mL injection 1-4 Units 1-4 Units Subcutaneous NIGHTLY & 2AM POOJA De Souza 1 Units at 11/06/24 0222 insulin lispro (HumaLOG/ADMELOG) 100 units/mL injection 1-6 Units 1-6 Units Subcutaneous TID with meals POOJA De Souza 2 Units at 11/06/24 0907 lactulose (ENULOSE) 10 gm/15 mL solution 20 g 20 g Oral Q4H PRN POOJA De Souza magnesium hydroxide (MILK OF MAGNESIA) 400 mg/5 mL suspension 30 mL 30 mL Oral Daily PRN POOJA De Souza magnesium hydroxide (MILK OF MAGNESIA) 400 mg/5 mL suspension 30 mL 30 mL Oral Q12H PRN POOJA De Souza melatonin tablet 3 mg 3 mg Oral Nightly PRN POOJA De Souza [Provider Held] metFORMIN (GLUCOPHAGE) tablet 500 mg 500 mg Oral Daily with breakfast POOJA Arias 500 mg at 11/04/24 0756 methocarbamol (ROBAXIN) tablet 500 mg 500 mg Oral Q6H PRN POOJA De Souza methocarbamol (ROBAXIN) tablet 750 mg 750 mg Oral 4x Daily PRN POOJA De Souza 750 mg at 11/06/24 0513 metoPROLOL TARTRATE (LOPRESSOR) tablet 50 mg 50 mg Oral BID POOJA De Souza 50 mg at 11/06/24 0910 mineral oil (FLEET OIL) enema 1 enema 1 enema Rectal Daily PRN POOJA De Souza multivitamin with minerals tablet 1 tablet 1 tablet Oral Daily POOJA De Souza 1 tablet at 11/06/24 0907 naloxone (NARCAN) 0.4 mg/mL injection 0.4 mg 0.4 mg Intravenous Q5 Min PRN POOJA De Souza nicotine (NICODERM CQ) 21 MG/24HR patch 1 patch 1 patch Transdermal Daily POOJA De Souza 1 patch at 11/05/24 0908 ondansetron (ZOFRAN) injection 4 mg 4 mg Intravenous Q6H PRN POOJA De Souza ondansetron (ZOFRAN-ODT) disintegrating tablet 4 mg 4 mg Oral Q6H PRN POOJA De Souza oxyCODONE (ROXICODONE) immediate release tablet 10 mg 10 mg Oral Q3H PRN POOJA De Souza 10 mgat 11/04/24 1601 oxyCODONE (ROXICODONE) immediate release tablet 10 mg 10 mg Oral Q3H PRN POOJA De Souza 10 mgat 11/06/24 0909 oxyCODONE (ROXICODONE) immediate release tablet 5 mg 5 mg Oral Q3H PRN POOJA De Souza oxyCODONE (ROXICODONE) immediate release tablet 5 mg 5 mg Oral Q3H PRN POOJA De Souza 5 mg at11/06/24 0513 PANTOprazole (PROTONIX) EC tablet 40 mg 40 mg Oral Daily POOJA De Souza 40 mg at 11/06/24 0920 polyethylene glycol (miraLAx) packet 17 g 17 g Oral Daily PRN POOJA De Souza polyethylene glycol (miraLAx) packet 17 g 17 g Oral Daily PRN POOJA De Souza [Provider Held] pravastatin (PRAVACHOL) tablet 20 mg 20 mg Oral Daily POOJA Arias pregabalin (LYRICA) capsule 150 mg 150 mg Oral BID POOJA De Souza 150 mg at 11/06/24 0907 senna (SENOKOT) tablet 2 tablet 2 tablet Oral Nightly POOJA De Souza 2 tablet at 11/04/24 2241 senna-docusate (SENNA-S) 8.6-50 MG tablet 2 tablet 2 tablet Oral BID POOJA De Souza 2 tablet at 11/06/24 0909 thiamine mononitrate (VITAMIN B-1) tablet 200 mg 200 mg Oral Daily POOJA De Souza 200 mg at 11/06/24 0910 ALLERGIES: Allergies Allergen Reactions Lisinopril Other (See Comments) Dehydration I reviewed the prescribed Medications and new Laboratory Blood Work. Monitor for drug related adverse events I reviewed all new Imaging Studies (actual images) and compared to prior where applicable Of note, some information is being carried forward from prior records for informational purposes only and is being cited so that efficiency, safety and quality of this patient's care is not compromised This report was generated using [email or web address] Naturally Speaking dictation software. Although every attempt has been made by the provider to proofread this document, occasional misspellings and typographical errors Sign Chris Taylor MD, [facility], [facility] Infectious Diseases Available via [employer] 11/06/2024 10:58 AM * Adama Prasad APRN - 11/06/2024 10:05 AM EST Images from the original note were not included. 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 male with a history of as above who presented 11/02/2024 with known leftCalc osteomyelitis with plans of left BKA on 11/05/2024. Cardiology consulted for preop stratification and echocardiogram with concern for endocarditis with thickened mitral leaflets. S/p left BKA 11/05/24 Plan TATIANNA pending for Friday Head CT to rule out septic emboli CT surgery consult pending EP consult as PPM likely seeded as well ABX per ID He is overloaded with elevated JVD. He is describing progressive LE swelling, abdominal bloating and 30lb weight gain prior to admission. Start IV bumex 2mg BID for today and trend renal function. (Home dose bumex PO 2mg daily). Continue telemetry Outpatient catering assistant: Gucci pedroza Lorenzo Subjective/24 hour Events C/o significant pain. No relief withoxycodone. Otherwise feels better after surgery. Says he noticed significant swelling and gained 30lb in past 3 weeks. Still feels bloated. Reporting diminishing response to PO bumex in recent weeks. Breathing comfortably on 3l NC. Objective Telemetry reviewed: AV paced Last Vitals Pulse:66,Resp:16,BP:115/61,SpO2:96 %,Weight:120 kg (264 lb 8 oz) Temp Last 24 hrs: Temp Min: 94.9 ??F (34.9 ??C) Max: 97.7 ??F (36.5 ??C) Intake/Output Summary (Last 24 hours) at 11/06/2024 1006 Last data filed at 11/06/2024 0840 Gross per 24 hour Intake 1076 ml Output 1600 ml Net -524 ml Wt Readings from Last 3 Encounters: 11/02/24 120 kg (264 lb 8 oz) 09/02/24 104 kg (230 lb) 09/03/24 102 kg (224 lb 3.2 oz) Physical Exam GENERAL: No acute distress. HEENT: No jaundice, anicteric NECK: Supple. No bruits. JVD 10-12mmHg LUNGS: Normal respiratory effort. Diminished but clear. No over rales/rhonchi. CARDIAC: Regular rate and rhythm. No murmurs, rubs, or gallops. ABDOMEN: Distended. EXTREMITIES: Warm, well perfused. Trace RLE Edema. LLE stump wrapped. VASCULAR: 2+ radial pulses SKIN: Warm and dry. No Rashes NEURO: Awake & alert. No gross neurological deficits. Medication Review Prior to Admission Medications: Medications Prior to Admission Medication Sig Dispense Refill Last Dose acetaminophen (TYLENOL) 325 MG tablet Take 3 tablets (975 mg total) by mouth 4 times daily (every 6hours) as needed for mild pain. 168 tablet 0 amiODARONE (PACERONE) 200 MG tablet Take 1 tablet (200 mg total) by mouth 2 times a day. amLODIPine (NORVASC) 10 MG tablet Take 1 tablet (10 mg total) by mouth. amoxicillin (AMOXIL) 500 MG capsule Take 1 capsule (500 mg total) by mouth 3 (three) times a day. For 1 week for DENTAL procedures amoxicillin (AMOXIL) 500 MG tablet Take 2 tablets (1,000 mg total) by mouth 2 (two) times a day. For 14 days apixaban (ELIQUIS) 5 MG tablet Take 1 tablet (5 mg total) by mouth 2 times a day. ascorbic acid (VITAMIN C) 500 MG tablet Take 1 tablet (500 mg total) by mouth daily. 14 tablet 0 bumetanide (BUMEX) 2 MG tablet Take 1 tablet (2 mg total) by mouth daily. Cholecalciferol (Vitamin D-3) 125 MCG (5000 UT) Tab Take 2 tablets by mouth every morning. ciprofloxacin (CIPRO) 500 MG tablet Take 1 tablet (500 mg total) by mouth 2 (two) times a day. Continuous Glucose Sensor (FreeStyle Wallace 3 Sensor) [facility] INJECT 1 DEVICE INTO THE SKIN EVERY 14 DAYS cyanocobalamin 2500 MCG Tab Take 1 tablet (2,500 mcg total) by mouth daily. donepezil (ARICEPT) 10 MG tablet Take 1 tablet (10 mg total) by mouth every morning. glipiZIDE (GLUCOTROL) 2.5 mg tablet Take 1 tablet (2.5 mg total) by mouth 2 times a day. Jardiance 25 MG tablet Take 1 tablet (25 mg total) by mouth daily. Magnesium 250 MG Tab Take 250 mg by mouth every morning. melatonin 10 MG Tab tablet Take 5 mg by mouth nightly. metFORMIN (GLUCOPHAGE) 1000 MG tablet Take 0.5 tablets (500 mg total) by mouth every morning with breakfast. metFORMIN (GLUCOPHAGE) 500 MG tablet Take 1 tablet (500 mg total) by mouth every morning with breakfast. methocarbamol (ROBAXIN) 500 MG tablet Take 1 tablet (500 mg total) by mouth 4 (four) times a day asneeded for muscle spasms. 20 tablet 0 metoPROLOL TARTRATE (LOPRESSOR) 50 MG tablet Take 1 tablet (50 mg total) by mouth 2 times a day. nicotine (NICODERM CQ) 7 MG/24HR patch Place 1 patch on the skin daily. oxyCODONE (ROXICODONE) 5 MG immediate release tablet Take 1-2 tablets (5-10 mg total) by mouth every 4 (four) hours as needed for severe pain. Max Daily Amount: 60 mg 42 tablet 0 PANTOprazole (PROTONIX) 40 MG EC tablet Take 1 tablet (40 mg total) by mouth daily. polyethylene glycol (miraLAx) 17 g packet Take 1 packet (17 g total) by mouth daily. 10 packet 0 pravastatin (PRAVACHOL) 20 MG tablet Take 1 tablet (20 mg total) by mouth daily. pregabalin (LYRICA) 150 MG capsule Take 1 capsule (150 mg total) by mouth 2 times a day. senna (SENOKOT) 8.6 MG Tab tablet Take 2 tablets by mouth daily as needed for constipation. 14 tablet 0 sulfamethoxazole-trimethoprim (BACTRIM DS,SEPTRA DS) 800-160 MG per tablet Take 1 tablet by mouth 2(two) times a day. 28 tablet 0 Current Medications / MAR: Medications Scheduled Medication Ordered Dose/Rate, Route, Frequency Last Action acetaminophen (TYLENOL) tablet 975 mg 975 mg, PO, Q8H JUDSON Given, 975 mg at 11/06 0513 acetaminophen (TYLENOL) tablet 975 mg 975 mg, PO, Q6H JUDSON Given, 975 mg at 11/05 0650 amiODARONE (PACERONE) tablet 200 mg 200 mg, PO, BID Given, 200 mg at 11/06 908 amLODIPine (NORVASC) tablet 10 mg 10 mg, PO, Daily Given, 10 mg at 11/06 907 aspirin enteric coated (ECOTRIN LOW STRENGTH) tablet 81 mg 81 mg, PO, Q12H JUDSON Given, 81 mg at 11/05 210 [Provider Held] bumetanide (BUMEX) tablet 2 mg On hold since [facility] 11/04/2024 at 1503 until manually unheld; held by Gayle Rey Reason: Pre-procedure On hold since [facility]ie 11/04/2024 at 1503 until manually unheld (Needs Review) Hold reason: Pre-procedure 2 mg, PO, Daily Given, 2 mg at 11/04 0755 buPROPion (WELLBUTRIN SR) 12 hr tablet 150 mg 150 mg, PO, BID Given, 150 mg at 11/06 909 calcium citrate (CALCITRATE) tablet 950 mg 950 mg, PO, BID with meals Given, 950 mg at 11/06 908 ceftaroline (TEFLARO) 600 mg in sodium chloride (NS) 0.9 % 250 mL IVPB-WTD 600 mg, IV, Q8H Given, 600 mg at 11/06 909 cholecalciferol tablet 2,000 Units 2,000 Units, PO, Daily Given, 2,000 Units at 11/06 908 cyanocobalamin (VITAMIN B-12) tablet 2,500 mcg 2,500 mcg, PO, Daily Given, 2,500 mcg at 11/06 909 DAPTOmycin (CUBICIN) 975 mg in sodium chloride (NS) 0.9 % 50 mL IVPB 10 mg/kg, IV, Q24H Stopped, 11/04 1418 docusate sodium (COLACE) capsule 100 mg 100 mg, PO, BID Given, 100 mg at 11/06 908 donepezil (ARICEPT) tablet 10 mg 10 mg, PO, QAM Given, 10 mg at 11/06 906 [Provider Held] empagliflozin (JARDIANCE) 25 mg On hold since [facility] 11/04/2024 at 1503 until manually unheld; held by Gayle Rey Reason: Pre-procedure On hold since Fri11/04/2024 at 1503 until manually unheld (Needs Review) Hold reason: Pre-procedure 25 mg, PO, Daily Given, 25 mg at 11/04 755 folic acid (FOLVITE) tablet 1 mg 1 mg, PO, Daily Given, 1 mg at 11/06 908 [Provider Held] glimepiride (AMARYL) tablet 2 mg On hold since Fri11/04/2024 at 1503 until manually unheld; held by Juaquin Kern MDHold Reason: Pre-procedure On hold since Fri11/04/2024 at 1503 until manually unheld (Needs Review) Hold reason: Pre-procedure 2 mg, PO, Daily with breakfast Given, 2 mg at 11/04 075 insulin lispro (HumaLOG/ADMELOG) 100 units/mL injection 1-4 Units 1-4 Units, SC, NIGHTLY & 2AM Given, 1 Units at 11/06 022 insulin lispro (HumaLOG/ADMELOG) 100 units/mL injection 1-6 Units 1-6 Units, SC, TID with meals Given, 2 Units at 11/06 906 [Provider Held] metFORMIN (GLUCOPHAGE) tablet 500 mg On hold since Fri11/04/2024 at 1503 until manually unheld; held by Juaquin Kern MDHold Reason: Pre-procedure On hold since Fri11/04/2024 at 1503 until manually unheld (Needs Review) Hold reason: Pre-procedure 500 mg, PO, Daily with breakfast Given, 500 mg at 11/04 755 metoPROLOL TARTRATE (LOPRESSOR) tablet 50 mg 50 mg, PO, BID Given, 50 mg at 11/06 909 multivitamin with minerals tablet 1 tablet 1 tablet, PO, Daily Given, 1 tablet at 11/06 906 nicotine (NICODERM CQ) 21 MG/24HR patch 1 patch 1 patch, TD, Daily Patch Applied, 1 patch at 11/05 907 PANTOprazole (PROTONIX) EC tablet 40 mg 40 mg, PO, Daily Given, 40 mg at 11/06 919 [Provider Held] pravastatin (PRAVACHOL) tablet 20 mg On hold since Fri11/03/2024 at 0850 until manually unheld; held by Gayle Rose Reason: Other - Comment requiredHold Comments: While on IV daptomycin On hold since Fri11/03/2024 at 0850 until manually unheld (Needs Review) Hold reason: Other - Comment required, Hold comment: While on IV daptomycin 20 mg, PO, Daily Ordered pregabalin (LYRICA) capsule 150 mg 150 mg, PO, BID Given, 150 mg at 11/06 09 senna (SENOKOT) tablet 2 tablet 2 tablet, PO, Nightly Given, 2 tablet at 11/04 2241 senna-docusate (SENNA-S) 8.6-50 MG tablet 2 tablet 2 tablet, PO, BID Given, 2 tablet at 11/06 0909 sodium chloride (NS) 0.9 % infusion - ADS Override Pull No Dose/Rate Ordered sodium chloride (NS) 0.9 % infusion - ADS Override Pull No Dose/Rate Ordered thiamine mononitrate (VITAMIN B-1) tablet 200 mg 200 mg, PO, Daily Given, 200 mg at 11/06 0910 Continuous Medication Ordered Dose/Rate, Route, Frequency Last Action lactated ringers (LR) infusion 100 mL/hr, IV, Continuous Ordered lactated ringers (LR) infusion 100 mL/hr, IV, Continuous Hold, 0 mL/hr at 11/05 2300 PRN Medication Ordered Dose/Rate, Route, Frequency Last Action bisacodyl (DULCOLAX) EC tablet 5 mg 5 mg, PO, Daily PRN Ordered bisacodyl (DULCOLAX) suppository 10 mg 10 mg, RE, Daily PRN Ordered bisacodyl (DULCOLAX) suppository 10 mg 10 mg, RE, Daily PRN Ordered calcium carbonate (TUMS) chewable tablet 1,000 mg 1,000 mg, PO, Q12H PRN Ordered dextrose 50 % solution 12.5 g (Or Linked Group #1) 12.5 g, IV, Q15 Min PRN Ordered dextrose 50 % solution 25 g (Or Linked Group #1) 25 g, IV, Q15 Min PRN Ordered diazepam (VALIUM) injection 10 mg (Or Linked Group #2) 10 mg, IV, Q15 Min PRN Ordered diazepam (VALIUM) injection 20 mg (Or Linked Group #2) 20 mg, IV, Q15 Min PRN Ordered diazepam (VALIUM) injection 20 mg (Or Linked Group #3) 20 mg, IV, Daily PRN Ordered diazepam (VALIUM) injection 40 mg (Or Linked Group #3) 40 mg, IV, Daily PRN Ordered gabapentin (NEURONTIN) capsule 300 mg 300 mg, PO, TID PRN Ordered glucagon (GLUCAGEN) injection 1 mg (Or Linked Group #1) 1 mg, IM, Daily PRN Ordered glucose (GLUTOSE 15) 40 % oral gel 37.5 g (Or Linked Group #1) 1 Tube, PO, Q15 Min PRN Ordered glucose (GLUTOSE 15) 40 % oral gel 75 g (Or Linked Group #1) 2 Tube, PO, Q15 Min PRN Ordered lactulose (ENULOSE) 10 gm/15 mL solution 20 g 20 g, PO, Q4H PRN Ordered magnesium hydroxide (MILK OF MAGNESIA) 400 mg/5 mL suspension 30 mL 30 mL, PO, Q12H PRN Ordered magnesium hydroxide (MILK OF MAGNESIA) 400 mg/5 mL suspension 30 mL 30 mL, PO, Daily PRN Ordered melatonin tablet 3 mg 3 mg, PO, Nightly PRN Ordered methocarbamol (ROBAXIN) tablet 500 mg 500 mg, PO, Q6H PRN Ordered methocarbamol (ROBAXIN) tablet 750 mg 750 mg, PO, 4x Daily PRN Given, 750 mg at 11/06 05 mineral oil (FLEET OIL) enema 1 enema 1 enema, RE, Daily PRN Ordered naloxone (NARCAN) 0.4 mg/mL injection 0.4 mg 0.4 mg, IV, Q5 Min PRN Ordered ondansetron (ZOFRAN) injection 4 mg 4 mg, IV, Q6H PRN Ordered ondansetron (ZOFRAN-ODT) disintegrating tablet 4 mg 4 mg, PO, Q6H PRN Ordered oxyCODONE (ROXICODONE) immediate release tablet 10 mg 10 mg, PO, Q3H PRN Given, 10 mg at 11/06 0909 oxyCODONE (ROXICODONE) immediate release tablet 10 mg 10 mg, PO, Q3H PRN Given, 10 mg at 11/04 1601 oxyCODONE (ROXICODONE) immediate release tablet 5 mg 5 mg, PO, Q3H PRN Given, 5 mg at 11/06 0513 oxyCODONE (ROXICODONE) immediate release tablet 5 mg 5 mg, PO, Q3H PRN Ordered polyethylene glycol (miraLAx) packet 17 g 17 g, PO, Daily PRN Ordered polyethylene glycol (miraLAx) packet 17 g 17 g, PO, Daily PRN Ordered Relevant data reviewed No results found for: HSTNT Lab Results Component Value Date CKTOTAL 49 11/05/2024 Lab Results Component Value Date WBC 11.9 (H) 11/06/2024 HGB 8.7 (L) 11/06/2024 HCT 27.9 (L) 11/06/2024 MCV 92 11/06/2024 PLT 346 11/06/2024 Lab Results Component Value Date GLUC 210 (H) 11/06/2024 CALCIUM 7.8 (L) 11/06/2024 NA 131 (L) 11/06/2024 K 3.8 11/06/2024 CO2 20 (L) 11/06/2024 CL 99 11/06/2024 BUN 48 (H) 11/06/2024 CREAT 1.7 (H) 11/06/2024 No results found for: PROBNP Imaging Studies Relevant imaging studies reviewed as below Echocardiogram (TTE) Comprehensive (Contrast PRN) Result Date: 11/04/2024 The left ventricle is mildly dilated. Left ventricular systolic function is mildly decreased. The quantitative EF is 43% by 3D imaging, and 46% by 2D Martinez biplane. The right ventricle is dilated. Right ventricular systolic function is normal. A pacer wire is present in the right ventricle. Right atrial cavity is severely dilated. A pacemaker wire is present in the right atrium. The mitral leaflets are moderately thickened. There is moderate to severe mitral regurgitation. Cannot rule out vegetation on the mitral valve leaflets. There is moderate tricuspid regurgitation. The estimated right ventricular systolic pressure is 44 mmHg. There is mild aortic regurgitation. The pulmonic valve was not well visualized. Compared to previous outside study report from [facility] on 08/05/2024, Mitral and tricuspid regurgitation were not previously reported. Recommend transesophageal echocardiogram if clinically indicated. Some of the above information is being carried forward from prior records for informational purposes only and in being cited so that efficiency, safety, and quality of this patient's care is not compromised. Disclaimer: This note was prepared using voice recognition software and direct typing. Please excuse inadvertent top lift nailer and typing errors. Sign Adama Prasad APRN 11/06/2024 10:06 AM * Dallas Rivers PA-C - 11/06/2024 8:46 AM EST Orthopedic Surgery Procedure: Hemovac drain in place to self-suction. Amount: 0 Drain was removed easily at the bedside without unusual resistance. Oblique tip was intact without any evidence of fraying. Hemostasis achieved; patient tolerated well. No active drainage from drain site. New Opsite dressing applied. Dlalas Rivers PA-C 11/06/2024 8:47 AM * Dallas Rivers PA-C - 11/06/2024 7:37 AM EST Orthopedic Progress Note Principal Problem: Acute osteomyelitis of left calcaneus (HCC) (POA: Yes) Resolved Problems: Assessment & Plan Assessment Surgical/Procedural Cases on this Admission Case IDs Date Procedure Surgeon Location Status [id number] 11/05/24 LEFT BELOW KNEE AMPUTATION Dallas Camejo MD [facility] OR Comp Plan Multimodal pain management DVT Prophylaxis: ASA 81mg PO BID Weight Bearing Status: NWB PT/OOB HV in place scant output overnight, will discuss with Dr. Camejo Appreciate Medicine, ID and Cardiology recs: for medical comanagement []TATIANNA pending []Blood Cultures Currently on Dapto, Ceftaroline Demo Coordinator Stump coil winder repair ordered Subjective No complaints. No CP,SOB,N/V. Pain well controlled. Objective Last Vitals Pulse:60,Resp:16,BP:123/63,SpO2:96 %,Weight:120 kg (264 lb 8 oz) Temp Last 24 hrs: Temp Min: 94.9 ??F (34.9 ??C) Max: 97.7 ??F (36.5 ??C) Low temps overnight Physical Exam Dressing clean, dry and intact. Hv in place with minimal drainage Labs: Recent Labs 11/05/24 0712 11/06/24 0458 HCT 28.3* 27.9* HGB 9.1* 8.7* INR 1.3 -- CREAT 2.0* 1.7* Sign Dallas Rivers PA-C 11/06/2024 7:37 AM * Juaquin Kern MD - 11/06/2024 7:21 AM EST Images from the original note were not included. [facility] MEDICINE PROGRESS NOTE Assessment Mr. Blas Genao is a 63 y.o. year old male with a PMH significant for atrial flutter/fib, chronic diastolic CHF, diabetes, hypertension, hyperlipidemia, CPAP, PAD, CKD 3, MERVIN on CPAP who presented as direct admit with plans for left BKA on 11/05 secondary to calcaneal osteomyelitis. Cardiology was recommending TATIANNA prior to operation attempted to get TATIANNA done early in the morning however overnight patient decompensated a bit requiring oxygen spiking fevers. Joint decision was made that left BKA should proceed without TATIANNA due to risk of not having control of the source of infection. Left BKA 11/05. Plan Principal Problem: Acute osteomyelitis of left calcaneus (HCC) (POA: Yes) Active Problems: HTN (hypertension) (POA: Yes) A-fib (HCC) (POA: Yes) PAD (peripheral artery disease) (POA: Yes) MERVIN on CPAP (POA: Yes) Diabetes (HCC) (POA: Yes) Stage 3a chronic kidney disease (CKD) (HCC) (POA: Yes) Hyperlipidemia (POA: Yes) Smoker (POA: Yes) Chronic diastolic congestive heart failure (HCC) (POA: Yes) Osteomyelitis (HCC) (POA: Yes) CKD (chronic kidney disease) (Chronic) (POA: Yes) Bacteremia (POA: Unknown) Presence of permanent cardiac pacemaker (POA: Unknown) Mitral valve vegetation (POA: Unknown) Mitral valve regurgitation (POA: Unknown) Resolved Problems: Osteomyelitis of left calcaneal Bacteremia -Proteus mirabilis S/p right TMA S/p calcaneal ostectomy 08/2024 with wound VAC and increasing pain Orthopedics is primary ID consulted expanded coverage to high-dose daptomycin and ceftaroline due to history of MDRO: ESBL, VRE -contact isolation. 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 With Watchman device. Scheduled left BKA on 11/05 Tylenol as needed for fever TTE: EF: 43%; mitral leaflets are moderately thickened. There is moderate to severe mitral regurgitation. Cannot rule out vegetation on the mitral valve leaflets. TATIANNA for Friday Head CT to rule out septic emboli blood culture: 11/02: Enterococcus faecalis-VRE, Enterococcus faecium-and VRE, MRSA Resume glimepiride, Jardiance, Bumex, metformin after surgery and eating Cardiology recc: High suspicion for MV endocarditis, high risk for septic emboli to brain. Patient may need bedside TATIANNA to assess valves consulting EP and CTS. Patient will likely need removal of PPMand possible transcutaneous pacing. Blood Culture 11/04 Sterile after 1 day Pain management via pharmacy Type II diabetes A1c 8.7 Metformin -don't restart inpatient Glimepiride-hold Sliding scale insulin Jardiance - can restart once eating TABITHA Hyponatremia Baseline 1.1 CR 2.0 and stable Daily labs if worsen consider Nephro consult CHF Hypertension A-fib/flutter S/p Watchman, pacemaker PVD Metoprolol 50 mg twice daily Amiodarone 200 mg twice daily Amlodipine 10 mg Aspirin daily Bumex 2 mg twice daily daily Cardiology following EP and structural to see Pt as well Alcohol Use Disorder Never had withdrawals, reports multiple times stopping for several days without problems. Last drink day before admission [facility] protocol ordered Diet: Diet Diabetic/ Calorie Controlled; Carb Counting 60g/meal [phone] kcal DVT Px: SCDs - RIGHT (Knee High) Status: Full Code Consults placed: Procedures Inpatient consult to Internal Medicine Inpatient consult to Infectious Diseases (Specify provider ) Inpatient consult to Social Work Inpatient consult to Anesthesiology Inpatient consult to cardiology ([facility]) Inpatient consult to cardiac surgery Inpatient consult to Cardiology ( EP Electrophysiology ) Social Work Consult Barriers for discharge: IV antibiotics, fevers, scheduled for left BKA on 11/05 Total time spent during this encounter including chart review, bedside encounter, discussing plan of care with patient/family, collaboration with other disciplines and specialties was 35 minutes. -Of note, some information is being carried forward from prior records for informational purposes only and has been cited so deficiency, safety and quality of this patient's care is not compromised. Quality Metrics Indication - DVT PROPHYLAXIS Risk Assessment Scores and Dates: VTE Time Out Orthopedics & NeuroSurgery VTE risk stratification: Standard or low risk (11/05/2024 12:44 PM) Chemical Prophylaxis Low VTE risk aspirin enteric coated (ECOTRIN LOW STRENGTH) tablet 81 mg Oral Every 12 hours scheduledChemical VTE prophylaxis NOT ordered. Click here to order if appropriate Enoxaparin Sodium 40 mg Last dose 11/04/2024 10:15 AM Mechanical Prophylaxis SCDs are ordered - RIGHT (Knee High)Mechanical VTE prophylaxis NOT ordered. Click here to order if appropriate Expected Date of Discharge 11/11/2024 Subjective Chief complaint No chief complaint on file. Patient is being seen for acute medical problems and follow-up for chronic medical issues as mentioned in the assessment and plan above. Overnight Events/Patient Discussion: Patient feeling much better still feeling chills shortly after eating. Pain is about 6 out of 10. Will still need TATIANNA after surgery and PPM removal. Currently no chest pain, shortness of breath, nausea, vomiting, fever, chills, headache, lightheadedness, vision changes. Objective Vitals: 11/05/24 2115 11/05/24 2135 11/06/24 0051 11/06/24 0115 BP: (!) 119/56 117/59 Pulse: 64 67 86 60 Resp: 12 16 Temp: 97.3 ??F (36.3 ??C) (!) 95.2 ??F (35.1 ??C) SpO2: 93% 93% 93% 95% 11/06/24 0515 11/06/24 0908 11/06/24 1000 11/06/24 1400 BP: 123/63 115/61 133/72 135/60 Pulse: 60 66 65 69 Resp: 16 16 16 Temp: (!) 94.9 ??F (34.9 ??C) (!) 93.1 ??F (33.9 ??C) (!) 95 ??F (35 ??C) SpO2: 96% 96% 96% I/O last 3 completed shifts: In: 1316 [P.O.:840; I.V.:476] Out: 1601 [Urine:1600; Stool:1] I/O this shift: In: 720 [P.O.:720] Out: 1 [Urine:1] Physical Exam Vitals and nursing note reviewed. Constitutional: General: He is not in acute distress. Appearance: Normal appearance. He is normal weight. He is ill-appearing. He is not toxic-appearing. HENT: Head: Normocephalic and atraumatic. Nose: Nose normal. Cardiovascular: Rate and Rhythm: Normal rate and regular rhythm. Pulses: Normal pulses. Heart sounds: Normal heart sounds. No murmur heard. Pulmonary: Effort: Pulmonary effort is normal. No respiratory distress. Breath sounds: Normal breath sounds. No wheezing or rales. Abdominal: General: Abdomen is flat. Bowel sounds are normal. There is no distension. Palpations: Abdomen is soft. Tenderness: There is no abdominal tenderness. There is no guarding. Musculoskeletal: Right lower leg: No edema. Left lower leg: No edema. Skin: General: Skin is warm and dry. Neurological: General: No focal deficit present. Mental Status: He is alert and oriented to person, place, and time. Psychiatric: Mood and Affect: Mood normal. Behavior: Behavior normal. Relevant data reviewed Results from last 7 days Lab Units 11/06/24 0458 WHITE BLOOD CELL COUNT Thou/uL 11.9* HEMOGLOBIN g/dL 8.7* HEMATOCRIT % 27.9* PLATELET COUNT Thou/uL 346 Results from last 7 days Lab Units 11/06/24 1445 11/06/24 0751 11/06/24 0458 SODIUM mmol/L -- -- 131* POTASSIUM mmol/L -- -- 3.8 CHLORIDE mmol/L -- -- 99 CO2 mmol/L -- -- 20* BUN mg/dL -- -- 48* CREATININE mg/dL -- -- 1.7* EGFR -- -- 45* GLUCOSE mg/dL -- -- 194* GLUCOSE, POC mg/dL 217* < > -- CALCIUM mg/dL -- -- 7.8* < > = values in this interval not displayed. Results from last 7 days Lab Units 11/06/24 0458 11/05/24 0712 ALT U/L 31 23 AST U/L 50 26 ALK PHOS U/L 270* 153* BILIRUBIN TOTAL mg/dL 0.2 0.3 BILIRUBIN DIRECT mg/dL -- 0.2 No results found for: PROBNP Lab Results Component Value Date HGBA1C 8.7 (H) 09/03/2024 No results found for: LABBLOO No results found. Signature Juaquin Kern MD 11/06/2024 5:19 PM * POOJA De Souza - 11/05/2024 4:11 PM EST Orthopedic Post Operative Progress Note POD 0 Assessment & Plan 63 y.o. s/p Surgical/Procedural Cases on this Admission Case IDs Date Procedure Surgeon Location Status [id number] 11/05/24 LEFT BELOW KNEE AMPUTATION Dallas Camejo MD [facility] OR [facility] WB status: NWB LLE Postop antibiotics: per ID currently on Daptomycin/Ceftaroline VTE Prophylaxis: ASA 81 mg BID x 3 weeks Pain control ADAT HV in place Appreciate medicine and cardiology recs Subjective Patient denies any chest pain, shortness of breath, nausea, vomiting. Pain is well controlled. Feel so much better Objective Last Vitals Vitals: 11/05/24 1320 11/05/24 1325 11/05/24 1525 11/05/24 1545 BP: 123/60 (!) 115/56 (!) 108/53 (!) 108/53 BP Location: Left arm Left arm Patient Position: Lying Sitting Pulse: (!) 49 (!) 48 (!) 48 (!) 45 Resp: 16 16 17 18 Temp: 97.6 ??F (36.4 ??C) TempSrc: Tympanic SpO2: 93% 94% (!) 90% (!) 91% Weight: Physical Exam Dressing with scant drainage posteriorly, HV in place Sign POOJA De Souza 11/05/2024 4:11 PM * Nitish Tracy MD - 11/05/2024 2:43 PM EST Images from the original note were not included. [facility] CARDIOLOGY SERVICE CONSULT Date of Consult: 11/05/2024 Patient's Primary Care Physician: Lee Fabian MD Physician Requesting Consult: Orthopedic surgery Primary Retail Shift Manager: Retail Shift Manager at [facility] Reason for Consultation: Preop Admit Date: 11/02/2024 6:10 PM Assessment & Plan Assessment Preop for left BKA scheduled for 11/05/2024 History of persistent atrial fibrillation on Eliquis, status post Watchman device implanted in 2018 Hypertension Hyperlipidemia History of AV block status post dual-chamber pacemaker in 2016 Mild carotid atherosclerosis Type 2 diabetes Recent and recurrent foot ulcerations and episodes of osteomyelitis Plan High suspicion for MV endocarditis causing valve pathology. High risk for septic emboli to brain. With acute decompensation ok to proceed with BKA. Pt will be high risk and may require pressors afterthe procedure. Afterwards may need bedside TATIANNA to assess the valves. Will involve other specialities including EP and CTS after the procedure. Unfortunately complex case so doing TATIANNA first is not going to casino change attendant. Leg wounds are like the source that has now seeded the valves and likely have involved thePPM. Will eventually need PP, evaluation and extraction afterwards. - Proceed with BKA - ABx per ID - Will need TATIANNA afterwards - I will involve EP and CTS to begin planning on potential extraction depending upon clinical course. Thank you for this consult. We will follow with you. Please do not hesitate to call with questions. Subjective High grade fevers overnight. More lethargic today Review of Systems Negative except as stated above Objective Past Medical History: Diagnosis Date A-fib (HCC) Acute osteomyelitis (HCC) Atrial flutter (HCC) Cardiac pacemaker 2016 Carotid atherosclerosis Charcot's joint of right foot 2015 Chronic sciatica Complete AV block ([facility]) Diabetes mellitus (HCC) TYPE II Diabetic foot ulcer ([facility]) ED (erectile dysfunction) Edema ESBL (extended spectrum beta-lactamase) producing bacteria infection GERD (gastroesophageal reflux disease) GI bleed Hyperlipidemia Hypertension Leukocytosis Metabolic bone disease Multiple drug resistant organism (MDRO) culture positive Non healing left heel wound Obesity Osteoarthrosis Osteomyelitis of both feet ([facility]) PAD (peripheral artery disease) ([facility]) Primary osteoarthritis of knee Proteinuria Renal osteodystrophy Restless legs syndrome (RLS) no meds, lyrica helps Septic joint of left knee joint ([facility]) Sleep apnea BiPap Smoker Stage 3a chronic kidney disease (CKD) ([facility]) Reviewed Past Surgical History: Procedure Laterality Date AMPUTATION Right 2018 TMA AORTOGRAM- ABDOMINAL Left 09/15/2024 Procedure: LEFT LOWER EXTREMITY ANGIOGRAM; Surgeon: Delbert Mcintosh MD; Location: Main OR; Service: Peripheral Vascular; Laterality: Left; BARIATRIC SURGERY 2018 CARDIAC ELECTROPHYSIOLOGY STUDY AND ABLATION x5 CARDIAC PACEMAKER PLACEMENT 2016 CARDIAC SURGERY 2020 watchman device CARDIOVERSION 07/2024 CC PERIPHERAL ANGIOGRAPHY Left 07/2024 LE CHANGE DRESSING WOUND VAC Left 09/10/2024 Procedure: APPLICATION OF WOUND VAC; Surgeon: Dallas Camejo MD; Location: [facility] OR; Service: Orthopaedics; Laterality: Left; FOOT SURGERY Right x5 INCISION AND DRAINAGE FOOT Left OH PROCEDURE MAZE AFIB OSTECTOMY CALCANEOUS Left 09/10/2024 Procedure: ANKLE PARTIAL CALCANECTOMY; Surgeon: Dallas Camejo MD; Location: [facility] OR; Service: Orthopaedics; Laterality: Left; wOUND PARTIALLY CLOSED SUPERFICIALLY, WOUND VAC PLACED TOTAL KNEE ARTHROPLASTY Left 2015 REVISION SAME YEAR/INFECTION Reviewed No family history on file. Reviewed Social History Tobacco Use Smoking status: Former Current packs/day: 1.00 Average packs/day: 1 pack/day for 29.1 years (29.1 ttl pk-yrs) Types: Cigarettes Start date: 1976 Quit date: 2003 Smokeless tobacco: Never Substance Use Topics Alcohol use: Yes Alcohol/week: 21.0 standard drinks of alcohol Types: 21 Cans of beer per week Drug use: Never Reviewed Medications Prior to Admission Medications: Medications Prior to Admission Medication Sig Dispense Refill Last Dose acetaminophen (TYLENOL) 325 MG tablet Take 3 tablets (975 mg total) by mouth 4 times daily (every 6hours) as needed for mild pain. 168 tablet 0 amiODARONE (PACERONE) 200 MG tablet Take 1 tablet (200 mg total) by mouth 2 times a day. amLODIPine (NORVASC) 10 MG tablet Take 1 tablet (10 mg total) by mouth. amoxicillin (AMOXIL) 500 MG capsule Take 1 capsule (500 mg total) by mouth 3 (three) times a day. For 1 week for DENTAL procedures amoxicillin (AMOXIL) 500 MG tablet Take 2 tablets (1,000 mg total) by mouth 2 (two) times a day. For 14 days apixaban (ELIQUIS) 5 MG tablet Take 1 tablet (5 mg total) by mouth 2 times a day. ascorbic acid (VITAMIN C) 500 MG tablet Take 1 tablet (500 mg total) by mouth daily. 14 tablet 0 bumetanide (BUMEX) 2 MG tablet Take 1 tablet (2 mg total) by mouth daily. Cholecalciferol (Vitamin D-3) 125 MCG (5000 UT) Tab Take 2 tablets by mouth every morning. ciprofloxacin (CIPRO) 500 MG tablet Take 1 tablet (500 mg total) by mouth 2 (two) times a day. Continuous Glucose Sensor (FreeStyle Wallace 3 Sensor) [facility] INJECT 1 DEVICE INTO THE SKIN EVERY 14 DAYS cyanocobalamin 2500 MCG Tab Take 1 tablet (2,500 mcg total) by mouth daily. donepezil (ARICEPT) 10 MG tablet Take 1 tablet (10 mg total) by mouth every morning. glipiZIDE (GLUCOTROL) 2.5 mg tablet Take 1 tablet (2.5 mg total) by mouth 2 times a day. Jardiance 25 MG tablet Take 1 tablet (25 mg total) by mouth daily. Magnesium 250 MG Tab Take 250 mg by mouth every morning. melatonin 10 MG Tab tablet Take 5 mg by mouth nightly. metFORMIN (GLUCOPHAGE) 1000 MG tablet Take 0.5 tablets (500 mg total) by mouth every morning with breakfast. metFORMIN (GLUCOPHAGE) 500 MG tablet Take 1 tablet (500 mg total) by mouth every morning with breakfast. methocarbamol (ROBAXIN) 500 MG tablet Take 1 tablet (500 mg total) by mouth 4 (four) times a day asneeded for muscle spasms. 20 tablet 0 metoPROLOL TARTRATE (LOPRESSOR) 50 MG tablet Take 1 tablet (50 mg total) by mouth 2 times a day. nicotine (NICODERM CQ) 7 MG/24HR patch Place 1 patch on the skin daily. oxyCODONE (ROXICODONE) 5 MG immediate release tablet Take 1-2 tablets (5-10 mg total) by mouth every 4 (four) hours as needed for severe pain. Max Daily Amount: 60 mg 42 tablet 0 PANTOprazole (PROTONIX) 40 MG EC tablet Take 1 tablet (40 mg total) by mouth daily. polyethylene glycol (miraLAx) 17 g packet Take 1 packet (17 g total) by mouth daily. 10 packet 0 pravastatin (PRAVACHOL) 20 MG tablet Take 1 tablet (20 mg total) by mouth daily. pregabalin (LYRICA) 150 MG capsule Take 1 capsule (150 mg total) by mouth 2 times a day. senna (SENOKOT) 8.6 MG Tab tablet Take 2 tablets by mouth daily as needed for constipation. 14 tablet 0 sulfamethoxazole-trimethoprim (BACTRIM DS,SEPTRA DS) 800-160 MG per tablet Take 1 tablet by mouth 2(two) times a day. 28 tablet 0 Current Medications / MAR: Medications Scheduled Medication Ordered Dose/Rate, Route, Frequency Last Action [Transfer Hold] acetaminophen (TYLENOL) tablet 975 mg Medication was not reviewed on transfer 975 mg, PO, Q6H JUDSON Given, 975 mg at 11/05 0650 [Transfer Hold] amiODARONE (PACERONE) tablet 200 mg Medication was not reviewed on transfer 200 mg, PO, BID Given, 200 mg at 11/05 908 [Transfer Hold] amLODIPine (NORVASC) tablet 10 mg Medication was not reviewed on transfer 10 mg, PO, Daily Given, 10 mg at 11/05 908 [Transfer Hold] aspirin enteric coated (ECOTRIN LOW STRENGTH) tablet 81 mg Medication was not reviewed on transfer 81 mg, PO, Daily Given, 81 mg at 11/05 908 [Provider Held] bumetanide (BUMEX) tablet 2 mg On hold since yesterday at 1503 until manually unheld; held by Juaquin Kern MDHold Reason: Pre-procedure On hold since yesterday at 1503 until manually unheld (Needs Review) Hold reason: Pre-procedure 2 mg, PO, Daily Given, 2 mg at 11/04 0755 [Transfer Hold] buPROPion (WELLBUTRIN SR) 12 hr tablet 150 mg Medication was not reviewed on transfer 150 mg, PO, BID Given, 150 mg at 11/05 908 [Transfer Hold] ceftaroline (TEFLARO) 600 mg in sodium chloride (NS) 0.9 % 250 mL IVPB-WTD Medication was not reviewed on transfer 600 mg, IV, Q8H Given, 600 mg at 11/05 1219 [Transfer Hold] cyanocobalamin (VITAMIN B-12) tablet 2,500 mcg Medication was not reviewed on transfer 2,500 mcg, PO, Daily Given, 2,500 mcg at 11/05 908 [Transfer Hold] DAPTOmycin (CUBICIN) 975 mg in sodium chloride (NS) 0.9 % 50 mL IVPB Medication wasnot reviewed on transfer 10 mg/kg, IV, Q24H Stopped, 11/04 1418 [Transfer Hold] docusate sodium (COLACE) capsule 100 mg Medication was not reviewed on transfer 100 mg, PO, BID Given, 100 mg at 11/05 908 [Transfer Hold] donepezil (ARICEPT) tablet 10 mg Medication was not reviewed on transfer 10 mg, PO, QAM Given, 10 mg at 11/05 908 [Provider Held] empagliflozin (JARDIANCE) 25 mg On hold since yesterday at 1503 until manually unheld; held by Gayle Rey Reason: Pre-procedure On hold since yesterday at 1503 until manually unheld (Needs Review) Hold reason: Pre-procedure 25 mg, PO, Daily Given, 25 mg at 11/04 075 [Provider Held] glimepiride (AMARYL) tablet 2 mg On hold since yesterday at 1503 until manually unheld; held by Gayle Rey Reason: Pre-procedure On hold since yesterday at 1503 until manually unheld (Needs Review) Hold reason: Pre-procedure 2 mg, PO, Daily with breakfast Given, 2 mg at 11/04 0757 [Transfer Hold] insulin lispro (HumaLOG/ADMELOG) 100 units/mL injection 1-4 Units Medication was not reviewed on transfer 1-4 Units, SC, NIGHTLY & 2AM Given, 2 Units at 11/04 2242 [Transfer Hold] insulin lispro (HumaLOG/ADMELOG) 100 units/mL injection 1-6 Units Medication was not reviewed on transfer 1-6 Units, SC, TID with meals Given, 1 Units at 11/05 908 [Provider Held] metFORMIN (GLUCOPHAGE) tablet 500 mg On hold since yesterday at 1503 until manuallyunheld; held by Gayle Rey Reason: Pre-procedure On hold since yesterday at 1503 until manually unheld (Needs Review) Hold reason: Pre-procedure 500 mg, PO, Daily with breakfast Given, 500 mg at 11/04 755 [Transfer Hold] metoPROLOL TARTRATE (LOPRESSOR) tablet 50 mg Medication was not reviewed on transfer 50 mg, PO, BID Given, 50 mg at 11/05 908 [Transfer Hold] nicotine (NICODERM CQ) 21 MG/24HR patch 1 patch Medication was not reviewed on transfer 1 patch, TD, Daily Patch Applied, 1 patch at 11/05 907 [Transfer Hold] PANTOprazole (PROTONIX) EC tablet 40 mg Medication was not reviewed on transfer 40 mg, PO, Daily Given, 40 mg at 11/05 908 [Provider Held] pravastatin (PRAVACHOL) tablet 20 mg On hold since Fri11/03/2024 at 0850 until manually unheld; held by Ena Mtz MDHold Reason: Other - Comment requiredHold Comments: While on IV daptomycin On hold since Fri11/03/2024 at 0850 until manually unheld (Needs Review) Hold reason: Other - Comment required, Hold comment: While on IV daptomycin 20 mg, PO, Daily Ordered [Transfer Hold] pregabalin (LYRICA) capsule 150 mg Medication was not reviewed on transfer 150 mg, PO, BID Given, 150 mg at 11/05 908 [Transfer Hold] senna (SENOKOT) tablet 2 tablet Medication was not reviewed on transfer 2 tablet, PO, Nightly Given, 2 tablet at 11/04 2241 sodium chloride (NS) 0.9 % infusion - ADS Override Pull No Dose/Rate Ordered Continuous Medication Ordered Dose/Rate, Route, Frequency Last Action lactated ringers (LR) infusion 100 mL/hr, IV, Continuous Hold, 0 mL/hr at 11/05 2300 PRN Medication Ordered Dose/Rate, Route, Frequency Last Action lactated ringers (LR) infusion No Dose/Rate, IV, Continuous PRN New Bag, No Dose/Rate at 11/05 1340 [Transfer Hold] bisacodyl (DULCOLAX) EC tablet 5 mg Medication was not reviewed on transfer 5 mg, PO, Daily PRN Ordered [Transfer Hold] bisacodyl (DULCOLAX) suppository 10 mg Medication was not reviewed on transfer 10 mg, RE, Daily PRN Ordered [Transfer Hold] calcium carbonate (TUMS) chewable tablet 1,000 mg Medication was not reviewed on transfer 1,000 mg, PO, Q12H PRN Ordered [Transfer Hold] dextrose 50 % solution 12.5 g Medication was not reviewed on transfer (Or Linked Group #1) 12.5 g, IV, Q15 Min PRN Ordered [Transfer Hold] dextrose 50 % solution 25 g Medication was not reviewed on transfer (Or Linked Group #1) 25 g, IV, Q15 Min PRN Ordered fentaNYL 100 MCG/2ML injection No Dose/Rate, IV, PRN Given, 50 mcg at 11/05 1405 [Transfer Hold] glucagon (GLUCAGEN) injection 1 mg Medication was not reviewed on transfer (Or Linked Group #1) 1 mg, IM, Daily PRN Ordered [Transfer Hold] glucose (GLUTOSE 15) 40 % oral gel 37.5 g Medication was not reviewed on transfer (Or Linked Group #1) 1 Tube, PO, Q15 Min PRN Ordered [Transfer Hold] glucose (GLUTOSE 15) 40 % oral gel 75 g Medication was not reviewed on transfer (OrLinked Group #1) 2 Tube, PO, Q15 Min PRN Ordered ketamine (KETALAR) 10 mg/mL syringe (PREMIX) No Dose/Rate, IV, PRN Given, 10 mg at 11/05 1344 [Transfer Hold] magnesium hydroxide (MILK OF MAGNESIA) 400 mg/5 mL suspension 30 mL Medication was not reviewed on transfer 30 mL, PO, Daily PRN Ordered [Transfer Hold] melatonin tablet 3 mg Medication was not reviewed on transfer 3 mg, PO, Nightly PRN Ordered [Transfer Hold] methocarbamol (ROBAXIN) tablet 750 mg Medication was not reviewed on transfer 750 mg, PO, 4x Daily PRN Given, 750 mg at 11/02 1856 norepinephrine (LEVOPHED) 8 mg in sodium chloride (NS) 0.9 % 250 mL IV infusion No Dose/Rate, IV, Continuous PRN Rate/Dose Change, 4 mcg/min at 11/05 1430 [Transfer Hold] ondansetron (ZOFRAN-ODT) disintegrating tablet 4 mg Medication was not reviewed on transfer 4 mg, PO, Q6H PRN Ordered [Transfer Hold] oxyCODONE (ROXICODONE) immediate release tablet 10 mg Medication was not reviewed on transfer 10 mg, PO, Q3H PRN Given, 10 mg at 11/04 1601 [Transfer Hold] oxyCODONE (ROXICODONE) immediate release tablet 5 mg Medication was not reviewed ontransfer 5 mg, PO, Q3H PRN Ordered [Transfer Hold] polyethylene glycol (miraLAx) packet 17 g Medication was not reviewed on transfer 17 g, PO, Daily PRN Ordered propofol (diPRIvan) injection No Dose/Rate, IV, PRN Given, 80 mg at 11/05 1344 sodium chloride irrigation (NS) 0.9 % irrigation solution BOTTLE No Dose/Rate, Once PRN Given, 1,000 mL at 11/05 1425 Allergies Allergen Reactions Lisinopril Other (See Comments) Dehydration Physical Exam Vitals: 11/05/24 1310 11/05/24 1315 11/05/24 1320 11/05/24 1325 BP: (!) 121/58 123/60 (!) 115/56 BP Location: Patient Position: Pulse: (!) 48 (!) 48 (!) 49 (!) 48 Resp: 15 16 16 Temp: TempSrc: SpO2: 92% (!) 91% 93% 94% Weight: Intake/Output Summary (Last 24 hours) at 11/05/2024 1443 Last data filed at 11/05/2024 1150 Gross per 24 hour Intake 1565 ml Output 1 ml Net 1564 ml Gen : comfortable, alert JVP : Not distended HEENT: no icterus or pallor, moist oral mucosa Lungs : good inspiratory effort, no crackles, no wheezing CVS : regular rhythm, normal S1 S2, no murmur or gallop Abdo : soft, non-distended, non-tender, no organomegaly appreciated Peripheries : Not assessed Neuro: oriented x3, no focal abnormalities Skin: dry, no cyanosis, no rash Relevant data reviewed: Results from last 7 days Lab Units 11/05/24 1254 11/05/24 0712 11/05/24 0626 11/04/24 1243 11/04/24 1050 11/02/24 2119 11/02/24 2000 SODIUM mmol/L -- 130* -- -- 130* -- 130* POTASSIUM mmol/L -- 3.4 -- -- 3.7 -- 4.0 CHLORIDE mmol/L -- 96* -- -- 95* -- 92* CO2 mmol/L -- 19* -- -- 21* -- 19* BUN mg/dL -- 47* -- -- 48* -- 41* CREATININE mg/dL -- 2.0* -- -- 2.0* -- 2.0* CALCIUM mg/dL -- 7.9* -- -- 7.7* -- 8.5* GLUCOSE mg/dL -- 146* -- -- 184* -- 171* GLUCOSE, POC mg/dL 128* -- 166* < > -- < > -- EGFR -- 37* -- -- 37* -- 37* ALBUMIN g/dL -- 2.5* -- -- -- -- 3.2* PROTEIN, TOTAL g/dL -- 5.9* -- -- -- -- -- BILIRUBIN TOTAL mg/dL -- 0.3 -- -- -- -- -- ALK PHOS U/L -- 153* -- -- -- -- -- ALT U/L -- 23 -- -- -- -- -- AST U/L -- 26 -- -- -- -- -- < > = values in this interval not displayed. Lab Results Component Value Date MG 2.1 09/16/2024 Results from last 7 days Lab Units 11/05/24 0712 11/04/24 1119 11/02/24 2000 WHITE BLOOD CELL COUNT Thou/uL 15.9* 13.4* 14.3* HEMOGLOBIN g/dL 9.1* 8.7* 9.3* HEMATOCRIT % 28.3* 28.0* 29.3* PLATELET COUNT Thou/uL 353 326 395 NEUTROS PCT % -- -- 81.9 LYMPHS PCT % -- -- 4.8 MONOS PCT % -- -- 12.2 EOS PCT % -- -- 0.1 BASOS PCT % -- -- 0.4 No results found for: HSTNT No results found for: PROBNP Pertinent Cardiac & Imaging Studies Recent Results (from the past 8760 hour(s)) ECG 12 lead (STAT) Collection Time: 11/02/24 9:34 PM Result Value Status Ventricular rate 70 Final Atrial rate 70 Final P-R interval 272 Final QRS duration 202 Final Q-T interval 510 Final QTC calculation (Bazett) 551 Final P axis 81 Final R axis 29 Final T axis 132 Final Narrative Atrial-sensed ventricular-paced rhythm with prolonged AV conduction Abnormal ECG When compared with ECG of 15-Sep-2024 06:25, Vent. rate has increased by 9 bpm Confirmed by MD Danya, Deep ([id number]) on 11/03/2024 4:30:25 PM Echocardiogram (TTE) Comprehensive (Contrast PRN) Result Date: 11/04/2024 The left ventricle is mildly dilated. Left ventricular systolic function is mildly decreased. The quantitative EF is 43% by 3D imaging, and 46% by 2D Martinez biplane. The right ventricle is dilated. Right ventricular systolic function is normal. A pacer wire is present in the right ventricle. Right atrial cavity is severely dilated. A pacemaker wire is present in the right atrium. The mitral leaflets are moderately thickened. There is moderate to severe mitral regurgitation. Cannot rule out vegetation on the mitral valve leaflets. There is moderate tricuspid regurgitation. The estimated right ventricular systolic pressure is 44 mmHg. There is mild aortic regurgitation. The pulmonic valve was not well visualized. Compared to previous outside study report from [facility] on 08/05/2024, Mitral and tricuspid regurgitation were not previously reported. Recommend transesophageal echocardiogram if clinically indicated. All additional appropriate imaging studies within the past 24 hours reviewed - images reviewed and independently interpreted. Sign: Nitish Tracy MD [facility] [place] 11/05/2024 2:43 PM * Hilda Alvarado RN - 11/05/2024 1:36 PM EST Images from the original note were not included. * Hilda Alvarado RN - 11/05/2024 1:00 PM EST Attending Anesthesiologist (KF) monitoring and aware of vitals during duration of block procedure. * Ena Mtz MD - 11/05/2024 9:42 AM EST Images from the original note were not included. [facility] INFECTIOUS DISEASE Consult progress Note Name: Blas Genao Age: 63 y.o. Sex: male Admit Date: 11/02/2024 6:10 PM ASSESSMENT & PLAN This is a 63 y.o. year-old male complex medical history of atrial fibrillation, cardiac pacemaker, Watchman device, diabetes type II, history of ESBL infection, peripheral vascular disease, chronic kidney disease, diabetic foot infection/osteomyelitis, status post right TMA, history of left calcaneal osteomyelitis status post multiple debridements and ostectomy in August 2024 and has been on wound VAC now with increasing pain, swelling and drainage from the left foot and also noted to have fever. Plans for left BKA on Friday, 11/05. ID consultation is requested for antibiotic recommendations. History of MDRO/ESBL E. Coli, VRE in wound cultures Polymicrobial bacteremia with original source from left foot infection/osteomyelitis High suspicion for mitral valve endocarditis with moderate to severe mitral regurgitation High suspicion for pacemaker lead endocarditis History of atrial fibrillation status post watchman's device implanted in 2017 Altered mental status in the setting of fever, rule out septic emboli Vision abnormality/? Visual hallucinations? Emboli Status post right TMA with some chronic wounds without any signs of infection WBC: 15.9 platelets: 353 BUN/creatinine: 47/2.0 CK: 49 Blood cultures: 11/02: MRSA, Enterococcus faecalis, Enterococcus faecium 10/27: Left foot wound culture at [place]: MRSA, Enterococcus faecalis, VRE, Corynebacterium speciesand gram-negative bacilli on Gram stain TTE: Left ventricle is mildly dilated, right ventricle is dilated, pacemaker wire in the right atrium, moderately thickened mitral leaflets, moderate to severe mitral regurgitation, cannot rule out vegetation on mitral valve leaflets, moderate tricuspid regurgitation Recommendations/Plan: -Follow-up on blood cultures from 11/04. Repeat 2 more sets tomorrow, 11/06 [ordered] -Cardiology and orthopedic notes reviewed, given the acute decompensation, current plan is to proceed with left BKA with plans for TATIANNA afterwards. Will need CT surgery evaluation and pacemaker removal postop -Consider ophthalmology evaluation and CT head imaging to evaluate for any septic emboli -Continue high-dose daptomycin IV 10 mg/kg every 24 hours. Trend CK level every 3 days given the high-dose -Add ceftaroline for salvage treatment for both MRSA and VRE -Discontinue meropenem IV Discussed at length with patient and he understands the complexity of the situation Discussed with hospitalist team Dr. Taylor to follow from tomorrow 11/06 Current antibiotic/day of therapy: Anti-infectives (From admission, onward) Start Dose/Rate Route Frequency Ordered Stop 11/03/24 0900 DAPTOmycin (CUBICIN) 975 mg in sodium chloride (NS) 0.9 % 50 mL IVPB 10 mg/kg ?? 97.3 kg (Adjusted) 139 mL/hr over 30 Minutes Intravenous Every 24 hours 11/03/24 0849 11/03/24 0900 meropenem (MERREM) 500 mg in sodium chloride-MBP (NS) 100 mL IVPB-MBP 500 mg 33.3 mL/hr over 3 Hours Intravenous Every 6 hours 11/03/24 0851 Sign Ena Mtz MD, FACP, [facility] Infectious Diseases Available via [employer] [facility] SUBJECTIVE Tmax 102.3 ??F Fevers overnight with increased oxygen requirements and also some altered mental status. He is awake alert oriented x 3 at present Complains of poor vision and last night had some visual hallucinations during fever CURRENT MEDICATIONS: Reviewed OBJECTIVE PHYSICAL EXAMINATION: Vitals: 11/04/24 2100 11/04/24 2136 11/05/24 0057 11/05/24 0422 BP: (!) 145/67 129/59 (!) 146/67 BP Location: Right arm Left arm Left arm Patient Position: Sitting Lying Lying Pulse: 85 (!) 54 74 Resp: 18 17 18 Temp: (!) 102.3 ??F (39.1 ??C) 99.3 ??F (37.4 ??C) 98.8 ??F (37.1 ??C) TempSrc: Tympanic Tympanic Tympanic SpO2: (!) 87% 94% 93% (!) 91% Weight: Intake/Output Summary (Last 24 hours) at 11/05/2024 0943 Last data filed at 11/04/2024 2241 Gross per 24 hour Intake 1920 ml Output -- Net 1920 ml General appearance- looks fatigued, ill-appearing CV- normal S1 and S2, Chest-clear abdomen- soft, Non tender, non distended, normal bowel sounds Bilateral foot dressings in place DEVICE TIME OUT Peripheral IV - Single Lumen (Adult) 11/03/24 2100 cephalic vein (lateral side of arm), left 22 gauge;1 in length;3/4 in length (Active) Number of days: 2 52 min spent reviewing records, evaluating the patient, discussing with other providers and formulating a plan of care Of note, some information is being carried forward from prior records for informational purposes only and is being cited so that efficiency, safety and quality of this patient's care is not compromised. This report was generated using [employer] dictation software. Although every attempt has been made by the provider to proofread this document, occasional misspellings and typographical errors may still be present. * POOJA Akers - 11/05/2024 9:41 AM EST After multidisciplinary conversations with Anesthesia, Cardiology, and medicine we will plan to bring pt to OR today for BKA as we need source control. We will reschedule his TATIANNA for another day. Percardiology pt is high risk for septic emboli to brain as he has vegetations on his mitral valve. The pt did appear more somnolent this am and reported some visual hallucinations of the room appearingto be different colors. On exam: He is sitting up in bed more awake. A&Ox4. He is noted to have wet skin, but no pallor. Cranialnerves 2-12 are intact, no arm drift noted. Denies currently hallucinations visual/auditory/olfactory. No sensory deficits no motor deficits. A/P: No concern for septic emboli to the brain at this point, however will continue to monitor closely for AMS and if detected will get stat brain CT. Visual hallucinations overnight likely related to fever. * POOJA Akers - 11/05/2024 7:45 AM EST Orthopedic Progress Note Principal Problem: Acute osteomyelitis of left calcaneus (HCC) (POA: Yes) Resolved Problems: Assessment & Plan Assessment Pt admitted for known left calc osteomyelitis planned for BKA today. He is bactermic and has findings suggestive of endocarditis. He had an acute decompensation overnight with fevers, increased O2 requirements and altered mental status. Plan NWB LLE ASA daily, lovenox yesterday, eliquis is on hold for OR Pt discussed with anesthesia and plan will be for OR today NPO Will plan for TATIANNA tomorrow or post op Apprec ID, medicine, and cardiology recs Subjective No complaints. No CP,SOB,N/V. Pain well controlled. Objective Last Vitals Pulse:74,Resp:18,BP:(!) 146/67,SpO2:(!) 91 %,Weight:120 kg (264 lb 8 oz) Temp Last 24 hrs: Temp Min: 96.2 ??F (35.7 ??C) Max: 102.3 ??F (39.1 ??C) Physical Exam Pt is somnolent on exam arouses to stimuli and briefly answers questions, but unable to keep eyes open longer than a few seconds. Dressing c/d/I, breathing is rapid and shallow, I replaced his nasal cannula. Labs: Recent Labs 11/02/24 2000 11/04/24 1050 11/04/24 1119 HCT 29.3* -- 28.0* HGB 9.3* -- 8.7* INR 1.3 -- -- CREAT 2.0* 2.0* -- Sign POOJA Akers 11/05/2024 7:45 AM * Juaquin Kern MD - 11/05/2024 7:09 AM EST Images from the original note were not included. [facility] MEDICINE PROGRESS NOTE Assessment Mr. Blas Genao is a 63 y.o. year old male with a PMH significant for atrial flutter/fib, chronic diastolic CHF, diabetes, hypertension, hyperlipidemia, CPAP, PAD, CKD 3, MERVIN on CPAP who presented as direct admit with plans for left BKA on 11/05 secondary to calcaneal osteomyelitis. Cardiology was recommending TATIANNA prior to operation attempted to get TATIANNA done early in the morning however overnight patient decompensated a bit requiring oxygen spiking fevers. Joint decision was made that left BKA should proceed without TATIANNA due to risk of not having control of the source of infection. Left BKA2/7. Patient may need higher level of care with closer observation. Plan Principal Problem: Acute osteomyelitis of left calcaneus (HCC) (POA: Yes) Resolved Problems: Osteomyelitis of left calcaneal Bacteremia -Proteus mirabilis S/p right TMA S/p calcaneal ostectomy 08/2024 with wound VAC and increasing pain Orthopedics is primary ID consulted expanded coverage to high-dose daptomycin and meropenem due to history of MDRO: ESBL, VRE -contact isolation. 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 With Watchman device. Scheduled left BKA on 11/05 Tylenol as needed for fever TTE: EF: 43%; mitral leaflets are moderately thickened. There is moderate to severe mitral regurgitation. Cannot rule out vegetation on the mitral valve leaflets. TATIANNA due to bacteremia - Will need after BKA Blood culture: 11/02: Enterococcus faecalis-VRE, Enterococcus faecium-and VRE, MRSA Daily labs Resume glimepiride, Jardiance, Bumex, metformin after surgery and eating Cardiology recc: High suspicion for MV endocarditis, high risk for septic emboli to brain. Patient may need bedside TATIANNA to assess valves consulting EP and CTS. Patient will likely need removal of PPMand possible transcutaneous pacing. Blood Culture 11/04 Sterile after 1 day Type II diabetes A1c 8.7 Metformin -don't restart inpatient Glimepiride-hold Sliding scale insulin Jardiance - can restart once eating TABITHA Hyponatremia Baseline 1.1 CR 2.0 and stable Daily labs if worsen consider Nephro consult CHF Hypertension A-fib/flutter S/p Watchman, pacemaker PVD Metoprolol 50 mg twice daily Amiodarone 200 mg twice daily Amlodipine 10 mg Aspirin daily Bumex 2 mg daily5 Cardiology following EP and structural to see Pt as well Alcohol Use Disorder Never had withdrawals, reports multiple times stopping for several days without problems. Last drink day before admission [facility] protocol ordered Diet: Diet NPO; Meds DVT Px: SCDs - Bilateral (Knee High) Status: Full Code Consults placed: Procedures Inpatient consult to Internal Medicine Inpatient consult to Infectious Diseases (Specify provider ) Inpatient consult to Social Work Inpatient consult to Anesthesiology Inpatient consult to cardiology ([facility]) Barriers for discharge: IV antibiotics, fevers, scheduled for left BKA on 11/05 Total time spent during this encounter including chart review, bedside encounter, discussing plan of care with patient/family, collaboration with other disciplines and specialties was 35 minutes. -Of note, some information is being carried forward from prior records for informational purposes only and has been cited so deficiency, safety and quality of this patient's care is not compromised. Quality Metrics Indication - DVT PROPHYLAXIS Risk Assessment Scores and Dates: VTE Time Out Orthopedics & NeuroSurgery VTE risk stratification: HIGH risk (11/05/2024 6:40 AM) Chemical Prophylaxis Chemical VTE prophylaxis NOT ordered. Click here to order if appropriate Enoxaparin Sodium 40 mg Last dose 11/04/2024 10:15 AM Mechanical Prophylaxis SCDs are ordered - Bilateral (Knee High)Mechanical VTE prophylaxis NOT ordered. Click here to orderif appropriate Expected Date of Discharge 11/08/2024 Subjective Chief complaint No chief complaint on file. Patient is being seen for acute medical problems and follow-up for chronic medical issues as mentioned in the assessment and plan above. Overnight Events/Patient Discussion: Febrile overnight and during the day. Patient denies: Chest Pain, SOB, Nausea, Vomiting Endorsed fever, chills, sweating. Was placed on Nasal Cannula overnight. Spoke with ortho about proceeding with BKA, Cardiology in agreement. Will still need TATIANNA after surgery and PPM removal. Objective Vitals: 11/03/24 2100 11/04/24 0610 11/04/24 0751 11/04/24 1400 BP: (!) 142/67 124/59 133/63 122/62 Pulse: 82 68 74 77 Resp: 18 20 18 Temp: (!) 100.9 ??F (38.3 ??C) 100 ??F (37.8 ??C) 97.9 ??F (36.6 ??C) (!) 96.2 ??F (35.7 ??C) SpO2: 95% 94% 93% 94% 11/04/24 2100 11/04/24 2136 11/05/24 0057 11/05/24 0422 BP: (!) 145/67 129/59 (!) 146/67 Pulse: 85 (!) 54 74 Resp: 18 17 18 Temp: (!) 102.3 ??F (39.1 ??C) 99.3 ??F (37.4 ??C) 98.8 ??F (37.1 ??C) SpO2: (!) 87% 94% 93% (!) 91% I/O last 3 completed shifts: In: 3250 [P.O.:3240; I.V.:10] Out: - No intake/output data recorded. Physical Exam Vitals and nursing note reviewed. Constitutional: General: He is not in acute distress. Appearance: Normal appearance. He is normal weight. He is ill-appearing. He is not toxic-appearing. HENT: Head: Normocephalic and atraumatic. Nose: Nose normal. Cardiovascular: Rate and Rhythm: Normal rate and regular rhythm. Pulses: Normal pulses. Heart sounds: Normal heart sounds. No murmur heard. Pulmonary: Effort: Pulmonary effort is normal. No respiratory distress. Breath sounds: Normal breath sounds. No wheezing or rales. Abdominal: General: Abdomen is flat. Bowel sounds are normal. There is no distension. Palpations: Abdomen is soft. Tenderness: There is no abdominal tenderness. There is no guarding. Musculoskeletal: Right lower leg: No edema. Left lower leg: No edema. Skin: General: Skin is warm and dry. Neurological: General: No focal deficit present. Mental Status: He is alert and oriented to person, place, and time. Psychiatric: Mood and Affect: Mood normal. Behavior: Behavior normal. Relevant data reviewed Results from last 7 days Lab Units 11/04/24 1119 WHITE BLOOD CELL COUNT Thou/uL 13.4* HEMOGLOBIN g/dL 8.7* HEMATOCRIT % 28.0* PLATELET COUNT Thou/uL 326 Results from last 7 days Lab Units 11/05/24 0626 11/04/24 1243 11/04/24 1050 SODIUM mmol/L -- -- 130* POTASSIUM mmol/L -- -- 3.7 CHLORIDE mmol/L -- -- 95* CO2 mmol/L -- -- 21* BUN mg/dL -- -- 48* CREATININE mg/dL -- -- 2.0* EGFR -- -- 37* GLUCOSE mg/dL -- -- 184* GLUCOSE, POC mg/dL 166* < > -- CALCIUM mg/dL -- -- 7.7* < > = values in this interval not displayed. No results found for: PROBNP Lab Results Component Value Date HGBA1C 8.7 (H) 09/03/2024 No results found for: LABBLOO No results found. Signature Juaquin Kern MD 11/05/2024 7:09 AM * Juany Ospina RN - 11/04/2024 9:20 AM Shayy: Nurse navigator note Initial Ortho Trauma Nurse Navigator Rounding Note Met with patient. Introduced self to patient and explained nurse navigator role. Patient is alert and oriented. Patient's interaction with nurse navigator today: Demonstrated understanding Assessment Pain: Patient reports pain is Fair . Patient Experience/Hospitality Screening: Patient reports no concerns with his care at present and he is very grateful that Dr. Camejo was able to see him on such short notice. Patient's concerns validated and emotional support provided Resources: Patient informed of the following resources and how to request it: Integrative Medicine Services available at [facility], including, Massage Therapy, and Reiki/Energy Therapy Social Work Spiritual Care Pharmacist Nutrition Patient declined resources at this time. Demographic Screening: Medical insurance - Medicare Manager Filter involvement - No. Worker's compensation - No Disposition planning - TBD Plan of Care Plan of care reviewed with patient at 0920. Phase of Care: Patient is scheduled for surgery tomorrow. Advised patient he will be NPO at midnight tonight. Preoperative patient teaching provided, including: Information about the perioperative environment. Advising patient anesthesiologist will meet with patient in pre op area for further education and consent. Patient advised if nerve block is administered, upon return to their room from the PACU, it is important to inform floor nurse when they start to get sensation back (pins and needles) in orderto prevent severe pain. Importance of deep breathing and coughing post operatively with incentive spirometer. Mobility and weightbearing restrictions will be provided and reviewed with patient upon return to their room from the PACU Periop staff will identify along with patient a personal development coach to provide updates. Interventions Provided and reviewed Stress Response Brochure including stress management during recovery process and available community resources with patient. Discussed multi modal pain management, strategies for avoiding constipation (during hospital stay and once discharged) as well as the importance of balanced nutrition and adequate hydration during recovery. Patient informed to be expecting a call from nurse navigator within 24-72 hours after transitioningfrom hospital to discuss progress and/or any concerns. Confirmed patient contact information. Patient's questions and concerns addressed. Patient provided with notebook and business card with direct contact information and informed nursenavigator can be contacted with any questions or concerns throughout inpatient stay and during the recovery process. * Chris Taylor MD - 11/04/2024 9:13 AM EST Images from the original note were not included. Coverage for Dr. Mtz [facility] ID Progress Note Name: Blas Genao Age: 63 y.o. 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 ID was consulted on 11/03-> recommended to start daptomycin/meropenem given prior history of MDRO's and follow cultures. 1. Left foot infection in the setting of left calcaneal osteomyelitis s/p calcaneal ostectomy. -10/27: Left foot wound culture at [place]: MRSA, Enterococcus faecalis, VRE, Corynebacterium species and gram-negative bacilli on Gram stain 2. Bacteremia secondary to MRSA/ VRE/Enterococcus faecalis (2/2 blood cultures, 11/02) 3. Fever/leukocytosis secondary to bacteremia/left foot infection: Afebrile. Today's CBC pending 4. History of permanent pacemaker and Watchman device 5. Inflammatory markers CRP 29.62, ESR 79 6. TABITHA. Today's creatinine pending. 7. Antibiotics -Daptomycin, 11/03 -Meropenem, 11/03 Plan: - left BKA on Sunday 11/05 -Temperature curve has improved, but blood cultures have turned positive. -Not ready for PICC line placement 1. Continue daptomycin/meropenem 2. EP input, as has a pacemaker in place which will need to be extracted 3. Obtain 2D echo 4. Repeat blood cultures x 2. Ordered 5. Check CPK/LFTs in AM. Ordered Plan of care reviewed with patient Dr. Mtz will resume care in a.m. ANTIBIOTIC TIME OUT Current antibiotic/day of therapy: Anti-infectives (From admission, onward) Start Dose/Rate Route Frequency Ordered Stop 11/03/24 0900 DAPTOmycin (CUBICIN) 975 mg in sodium chloride (NS) 0.9 % 50 mL IVPB 10 mg/kg ?? 97.3 kg (Adjusted) 139 mL/hr over 30 Minutes Intravenous Every 24 hours 11/03/24 0849 11/03/24 0900 meropenem (MERREM) 500 mg in sodium chloride-MBP (NS) 100 mL IVPB-MBP 500 mg 33.3 mL/hr over 3 Hours Intravenous Every 6 hours 11/03/24 0851 OBJECTIVE Physical Examination: Vitals: 11/04/24 0751 BP: 133/63 Pulse: 74 Resp: Temp: 97.9 ??F (36.6 ??C) SpO2: 93% Weight: General appearance - male Pleasant. On room air Lungs: Clear to auscultation bilaterally Cardiovascular: Rate rhythm regular Abdomen: Soft nontender Left lower extremity dressing in place. right foot TMA. LABORATORY AND DIAGNOSTIC DATA: Lab and imaging data were reviewed by me Results from last 7 days Lab Units 11/02/241999 WHITE BLOOD CELL COUNT Thou/uL 14.3* HEMOGLOBIN g/dL 9.3* HEMATOCRIT % 29.3* PLATELET COUNT Thou/uL 395 NEUTROS PCT % 81.9 LYMPHS PCT % 4.8 MONOS PCT % 12.2 EOS PCT % 0.1 BASOS PCT % 0.4 Results from last 7 days Lab Units 11/04/24 0726 11/03/245 11/03/24 1750 11/02/24 2119 11/02/241999 SODIUM mmol/L -- -- -- -- 130* POTASSIUM mmol/L -- -- -- -- 4.0 CHLORIDE mmol/L -- -- -- -- 92* CO2 mmol/L -- -- -- -- 19* BUN mg/dL -- -- -- -- 41* CREATININE mg/dL -- -- -- -- 2.0* CALCIUM mg/dL -- -- -- -- 8.5* GLUCOSE mg/dL -- -- -- -- 171* GLUCOSE, POC mg/dL 141* 229* 158* < > -- EGFR -- -- -- -- 37* ALBUMIN g/dL -- -- -- -- 3.2* < > = values in this interval not displayed. Lab Results Component Value Date ALT 27 09/10/2024 AST 25 09/10/2024 ALKPHOS 89 09/10/2024 BILITOT 0.4 09/10/2024 Results from last 7 days Lab Units 11/02/241999 PROTHROMBIN TIME (PT) seconds 14.7* INR 1.3 Creatine Kinase (CK) Date Value Ref Range Status 11/03/2024 61 24 - 204 U/L Final Lab Results Component Value Date SEDRATE 79 (H) 11/02/2024 Lab Results Component Value Date CRP 29.62 (H) 11/02/2024 Blood Cultures: Lab Results Component Value Date CULTURE Aerobic bottle positive. (A) 11/02/2024 CULTURE Aerobic bottle positive. (A) 11/02/2024 Urine Cultures: No results found for: CRYSUA , HYALNCSTUA , UROBILINOGEN , BILIUA , BLOODUA , CLARITYUA , COLORUA , UACOMMENT , GLUCU , KETONESUA , LEUKOCYTESUA , NITRITEUA , PHUA , PROTEINUA , RBCUA , SPECIMEN , SPECGRAVUA , SQEPIUA , WBCUA OTHER MICROBIOLOGY: C. Difficile: No results found for: CDIFFTOX , NAP1 Imaging Studies XR Foot 1 view-Left Result Date: 11/02/2024 This exam was performed in office at [facility] and images reviewed by orthopedic provider. Any findings are documented within ambulatory encounter note on date of service. Current Medications: Current Facility-Administered Medications Medication Dose Route Frequency Provider Last Rate Last Admin lactated ringers (LR) infusion 100 mL/hr Intravenous Continuous POOJA Akers acetaminophen (TYLENOL) tablet 975 mg 975 mg Oral Q6H JUDSON POOJA Arias 975 mg at 11/04/24 0457 amiODARONE (PACERONE) tablet 200 mg 200 mg Oral BID POOJA Arias 200 mg at 11/04/24 0756 amLODIPine (NORVASC) tablet 10 mg 10 mg Oral Daily POOJA Arias 10 mg at 11/04/24 0755 aspirin enteric coated (ECOTRIN LOW STRENGTH) tablet 81 mg 81 mg Oral Daily POOJA Arias 81 mg at 11/04/24 0755 bisacodyl (DULCOLAX) EC tablet 5 mg 5 mg Oral Daily PRN POOJA Arias bisacodyl (DULCOLAX) suppository 10 mg 10 mg Rectal Daily PRN POOJA Arias bumetanide (BUMEX) tablet 2 mg 2 mg Oral Daily POOJA Arias 2 mg at 11/04/24 0755 buPROPion (WELLBUTRIN SR) 12 hr tablet 150 mg 150 mg Oral BID POOJA Arias 150 mg at 11/04/24 0757 calcium carbonate (TUMS) chewable tablet 1,000 mg 1,000 mg Oral Q12H PRN POOJA Arias cyanocobalamin (VITAMIN B-12) tablet 2,500 mcg 2,500 mcg Oral Daily POOJA Arias 2,500 mcgat 11/04/24 0756 DAPTOmycin (CUBICIN) 975 mg in sodium chloride (NS) 0.9 % 50 mL IVPB 10 mg/kg (Adjusted) Intravenous Q24H Ena Mtz MD Stopped at 11/03/24 1507 glucose (GLUTOSE 15) 40 % oral gel 37.5 g 1 Tube Oral Q15 Min PRN POOJA Arias Or glucose (GLUTOSE 15) 40 % oral gel 75 g 2 Tube Oral Q15 Min PRN POOJA Arias Or dextrose 50 % solution 12.5 g 12.5 g Intravenous Q15 Min PRN POOJA Arias Or dextrose 50 % solution 25 g 25 g Intravenous Q15 Min PRN POOJA Arias Or glucagon (GLUCAGEN) injection 1 mg 1 mg Intramuscular Daily PRN POOJA Arias docusate sodium (COLACE) capsule 100 mg 100 mg Oral BID POOJA Arias 100 mg at 11/04/24 0757 donepezil (ARICEPT) tablet 10 mg 10 mg Oral QAM POOJA Arias 10 mg at 11/04/24 0757 empagliflozin (JARDIANCE) 25 mg 25 mg Oral Daily POOJA Arias 25 mg at 11/04/24 0756 enoxaparin (LOVENOX) syringe 40 mg 40 mg Subcutaneous Once POOJA Hatch glimepiride (AMARYL) tablet 2 mg 2 mg Oral Daily with breakfast POOJA Arias 2 mg at 11/04/24 0757 insulin lispro (HumaLOG/ADMELOG) 100 units/mL injection 1-4 Units 1-4 Units Subcutaneous NIGHTLY & 2AM POOJA Arias insulin lispro (HumaLOG/ADMELOG) 100 units/mL injection 1-6 Units 1-6 Units Subcutaneous TID with meals POOJA Arias 1 Units at 11/04/24 0755 magnesium hydroxide (MILK OF MAGNESIA) 400 mg/5 mL suspension 30 mL 30 mL Oral Daily PRN POOJA Arias melatonin tablet 3 mg 3 mg Oral Nightly PRN POOJA Arias meropenem (MERREM) 500 mg in sodium chloride-MBP (NS) 100 mL IVPB-MBP 500 mg Intravenous Q6H Ena Mtz MD Stopped at 11/04/24 075 metFORMIN (GLUCOPHAGE) tablet 500 mg 500 mg Oral Daily with breakfast POOJA Arias 500 mg at 11/04/24 0756 methocarbamol (ROBAXIN) tablet 750 mg 750 mg Oral 4x Daily PRN POOJA Arias 750 mg at 11/02/24 185 metoPROLOL TARTRATE (LOPRESSOR) tablet 50 mg 50 mg Oral BID POOJA Arias 50 mg at 757 ondansetron (ZOFRAN-ODT) disintegrating tablet 4 mg 4 mg Oral Q6H PRN POOJA Arias oxyCODONE (ROXICODONE) immediate release tablet 10 mg 10 mg Oral Q3H PRN POOJA Arias 10 mg at 11/04/24 0728 oxyCODONE (ROXICODONE) immediate release tablet 5 mg 5 mg Oral Q3H PRN POOJA Arias PANTOprazole (PROTONIX) EC tablet 40 mg 40 mg Oral Daily POOJA Arias 40 mg at 11/04/24 0756 polyethylene glycol (miraLAx) packet 17 g 17 g Oral Daily PRN POOJA Arias [Provider Held] pravastatin (PRAVACHOL) tablet 20 mg 20 mg Oral Daily POOJA Arias pregabalin (LYRICA) capsule 150 mg 150 mg Oral BID Kenzie Mcknight POOJA Vazquez 150 mg at 11/04/24 2516 senna (SENOKOT) tablet 2 tablet 2 tablet Oral Nightly Kenzie Mcknight POOJA Vazquez 2 tablet at 11/03/24 5493 ALLERGIES: Allergies Allergen Reactions Lisinopril Other (See Comments) Dehydration I reviewed the prescribed Medications and new Laboratory Blood Work. Monitor for drug related adverse events I reviewed all new Imaging Studies (actual images) and compared to prior where applicable Of note, some information is being carried forward from prior records for informational purposes only and is being cited so that efficiency, safety and quality of this patient's care is not compromised This report was generated using [employer] dictation software. Although every attempt has been made by the provider to proofread this document, occasional misspellings and typographical errors Sign Chris Taylor MD, [facility] Infectious Diseases Available via [employer] 11/04/2024 9:13 AM * Juaquin Kern MD - 11/04/2024 6:56 AM EST Images from the original note were not included. HOSPITAL MEDICINE PROGRESS NOTE Assessment Mr. Blas Genao is a 63 y.o. year old male with a PMH significant for atrial flutter/fib, chronic diastolic CHF, diabetes, hypertension, hyperlipidemia, CPAP, PAD, CKD 3, MERVIN on CPAP who presented as direct admit with plans for left BKA on 11/05 secondary to calcaneal osteomyelitis. Awaiting cards preop Plan Principal Problem: Acute osteomyelitis of left calcaneus (HCC) (POA: Yes) Resolved Problems: Osteomyelitis of left calcaneal Bacteremia -Proteus mirabilis S/p right TMA S/p calcaneal ostectomy 08/2024 with wound VAC and increasing pain Orthopedics is primary ID consulted expanded coverage to high-dose daptomycin and meropenem due to history of MDRO: ESBL, VRE -contact isolation Scheduled left BKA on 11/05 Tylenol as needed for fever TTE due to bacteremia - pending Blood culture: 11/02: Enterococcus faecalis-VRE, Enterococcus faecium-and VRE, MRSA Daily labs Perioperative Risk Scores ? Global - METS 4 or more. ASA Class: 3, Clinical Frailty Scale (CFS): (!) 4, NSQIP Serious complication risk: 14.9 %, NSQIP Any complication risk: 19.1 % ? Cardiac - RCRI: (!) 3, MACE risk: 9.1 %, NSQIP Cardiac complication risk: (!) 2.8 % ? Pulmonary - ELEVATED Pulmonary Risk STOPBANG not indicated, Known MERVIN ? MISC - AUDIT-C Total Score - Male: (!) 4, RAPT Score: (!) 5 Holding:Glimepiride, Jardiance, Bumex, metformin for day of surgery Cardiology consult given patient's cardiac and record and RCRI of 3 cardiac complication risk of 2.8%. Cardiology recc: TTE before BKA, if vegetations are found will require more intensive workup. ID already following. TT TATIANNA Lab will try to prioritize but will know more tomorrow morning. NPO for TATIANNA tomorrow and possible BKA in afternoon Type II diabetes A1c 8.7 Metformin -hold Glimepiride-hold Sliding scale insulin Jardiance-hold CHF Hypertension A-fib/flutter S/p Watchman, pacemaker PVD Metoprolol 50 mg twice daily Amiodarone 200 mg twice daily Amlodipine 10 mg Aspirin daily Bumex 2 mg daily5 Alcohol Use Disorder Never had withdrawals, Last drink day before admission Diet: Diet Diabetic/ Calorie Controlled; Carb Counting 60g/meal 6191-7851 kcal Diet NPO; Meds DVT Px: SCDs - Bilateral (Knee High) Status: Full Code Consults placed: Procedures Inpatient consult to Internal Medicine Inpatient consult to Infectious Diseases (Specify provider ) Inpatient consult to Social Work Inpatient consult to Anesthesiology Inpatient consult to cardiology ([facility]) Barriers for discharge: IV antibiotics, fevers, scheduled for left BKA on 11/05 Total time spent during this encounter including chart review, bedside encounter, discussing plan of care with patient/family, collaboration with other disciplines and specialties was 35 minutes. -Of note, some information is being carried forward from prior records for informational purposes only and has been cited so deficiency, safety and quality of this patient's care is not compromised. Quality Metrics Indication - DVT PROPHYLAXIS Risk Assessment Scores and Dates: VTE Time Out VTE risk assessment NOT done - Click here to document Chemical Prophylaxis Chemical VTE prophylaxis NOT ordered. Click here to order if appropriate Enoxaparin Sodium 40 mg Last dose 11/04/2024 10:15 AM Mechanical Prophylaxis SCDs are ordered - Bilateral (Knee High)Mechanical VTE prophylaxis NOT ordered. Click here to orderif appropriate Expected Date of Discharge 11/08/2024 Subjective Chief complaint No chief complaint on file. Patient is being seen for acute medical problems and follow-up for chronic medical issues as mentioned in the assessment and plan above. Overnight Events/Patient Discussion: Febrile overnight and during the day. Tmax 102 F. Awaiting TTE Patient denies: Chest Pain, SOB, Nausea, Vomiting Endorsed fever, chills, headache. Had some shaking on interview. Objective Vitals: 11/03/24 1412 11/03/24 1603 11/03/24 1723 11/03/24 1823 BP: 130/68 Pulse: 85 Resp: 17 Temp: 97.2 ??F (36.2 ??C) (!) 100.6 ??F (38.1 ??C) 100.1 ??F (37.8 ??C) 99.9 ??F (37.7 ??C) SpO2: 95% 11/03/24 2100 11/04/24 0610 11/04/24 0751 11/04/24 1400 BP: (!) 142/67 124/59 133/63 122/62 Pulse: 82 68 74 77 Resp: 18 20 18 Temp: (!) 100.9 ??F (38.3 ??C) 100 ??F (37.8 ??C) 97.9 ??F (36.6 ??C) (!) 96.2 ??F (35.7 ??C) SpO2: 95% 94% 93% 94% I/O last 3 completed shifts: In: 3013 [P.O.:3000; I.V.:13] Out: 1 [Stool:1] I/O this shift: In: 840 [P.O.:840] Out: - Physical Exam Vitals and nursing note reviewed. Constitutional: General: He is not in acute distress. Appearance: Normal appearance. He is normal weight. He is ill-appearing. He is not toxic-appearing. HENT: Head: Normocephalic and atraumatic. Nose: Nose normal. Cardiovascular: Rate and Rhythm: Normal rate and regular rhythm. Pulses: Normal pulses. Heart sounds: Normal heart sounds. No murmur heard. Pulmonary: Effort: Pulmonary effort is normal. No respiratory distress. Breath sounds: Normal breath sounds. No wheezing or rales. Abdominal: General: Abdomen is flat. Bowel sounds are normal. There is no distension. Palpations: Abdomen is soft. Tenderness: There is no abdominal tenderness. There is no guarding. Musculoskeletal: Right lower leg: No edema. Left lower leg: No edema. Skin: General: Skin is warm and dry. Neurological: General: No focal deficit present. Mental Status: He is alert and oriented to person, place, and time. Psychiatric: Mood and Affect: Mood normal. Behavior: Behavior normal. Relevant data reviewed Results from last 7 days Lab Units 11/04/24 1119 WHITE BLOOD CELL COUNT Thou/uL 13.4* HEMOGLOBIN g/dL 8.7* HEMATOCRIT % 28.0* PLATELET COUNT Thou/uL 326 Results from last 7 days Lab Units 11/04/24 1243 11/04/24 1050 SODIUM mmol/L -- 130* POTASSIUM mmol/L -- 3.7 CHLORIDE mmol/L -- 95* CO2 mmol/L -- 21* BUN mg/dL -- 48* CREATININE mg/dL -- 2.0* EGFR -- 37* GLUCOSE mg/dL -- 184* GLUCOSE, POC mg/dL 167* -- CALCIUM mg/dL -- 7.7* No results found for: PROBNP Lab Results Component Value Date HGBA1C 8.7 (H) 09/03/2024 No results found for: LABBLOO No results found. Signature Juaquin Kern MD 11/04/2024 3:08 PM * POOJA Akers - 11/04/2024 6:32 AM EST Orthopedic Progress Note Principal Problem: Acute osteomyelitis of left calcaneus (HCC) (POA: Yes) Resolved Problems: Assessment & Plan Assessment Pt admitted for known left calc osteomyelitis with plans for L BKA tomorrow Plan NWB LLE Aspirin 81mg daily, eliquis on hold for OR Pravastatin on hold as interaction with dapto Apprec ID recs, currently on meropenem and dapto Apprec medicine recs- will need risk stratification for OR Pre-op Checklist: Procedure: L BKA Date of Surgery: 11/05 [x]NPO at midnight/IV fluids while NPO [x]Anticoagulation: Hold eliquis /PAS [x]Morning labs ordered (4AM CBC, BMP,INR) [x]Type & screen/ 2 units RBC on hold [x]Nutrition labs (Prealbumin, albumin, transferrin, Vit D): [x]Nursing Communication: Please give all morning meds at 0600 except SRINIVAS inhibitors and ARBs [x]OR booked: case request and [facility] OR front desk person notified [x]Abx production control technologist to OR (2g ancef) []Pre-Op Noes to Toes: [x]Imaging Complete: Yes [x]CXR: not needed [x]EKG: complete [x]MRSA: negative on 11/03 [x]Pre op Block recommendation: yes [x]Consent: signed and in chart []Clearance Status: pending medicine [x]no /TXA [x] VTE risk assessment complete: No Subjective No complaints. No CP,SOB,N/V. Pain well controlled. Objective Last Vitals Pulse:68,Resp:20,BP:124/59,SpO2:94 %,Weight:120 kg (264 lb 8 oz) Temp Last 24 hrs: Temp Min: 97.2 ??F (36.2 ??C) Max: 100.9 ??F (38.3 ??C) Physical Exam LLE dressing clean, dry and intact. Pt's skin is erythematous and warm to touch to mid calf. Flicker ehl/fhl, not sensate 1st webspace (baseline) Labs: Recent Labs 11/02/241999 HCT 29.3* HGB 9.3* INR 1.3 CREAT 2.0* Sign POOJA Akers 11/04/2024 6:32 AM * THIEN Valderrama 11/03/2024 3:30 PM EST 11/03/24 1522 General Information Admission Type inpatient Arrived From [facility] Initial Information Source of Information patient;health record Limitations on Visitors/Phone Calls none Designated Caregiver for Discharge Coordination Do You Have a Designated Caregiver for Discharge? yes Designated Caregiver's Name Blas Sebastien Caregiver's Relationship to Patient child Living Environment People in Home alone Current Living Arrangements home (1-level, [facility]) Primary Care Provided by self Provides Primary Care For pet(s) (3 pet cats) Family Caregiver if Needed child(marisol), adult;friend(s) Family Caregiver Names Blas & Bry Quality of Family Relationships supportive;involved;helpful Able to Return to Prior Arrangements other (see comments) (pending post-op PT/OT svs) Relationship/Environment Primary Source of Support/Comfort child(marisol);friend Primary Roles/Responsibilities disabled Resource/Environmental Concerns Resource/Environmental Concerns home accessibility Home Accessibility Concerns stairs to access bedroom or bathroom (FOS to laundry only; ramp entry) Transportation Concerns none Disability/Function Equipment Currently Used at Home other (see comments);walker, rolling;tub bench (ambulates w/ knee scooter, uses rw to enter/exit vehicle; has transfer bench; pole w/ grab installed by his couch) Functional Status Functional Status Comments PT/OT evals post-op Financial Resource Strain Do you have any concerns about your current source of income or benefits No Living Arrangement Type of residence: Private residence Housing Stability In the last 12 months, was there a time when you were not able to pay the mortgage or rent on time?N In the past 12 months, how many times have you moved where you were living? 0 At any time in the past 12 months, were you homeless or living in a alf (including now)? N Food Insecurity Within the past 12 months, you worried that your food would run out before you got the money to buymore. Never true Within the past 12 months, the food you bought just didn't last and you didn't have money to get more. Never true Transportation Needs Do you currently have transportation available to you? Yes If yes, what transportation do you currently have available to you? Own Vehicle;Family/Friend In the past 12 months, has lack of transportation kept you from medical appointments or from getting medications? no In the past 12 months, has lack of transportation kept you from meetings, work, or from getting things needed for daily living? No Utilities In the past 12 months has the electric, gas, oil, or water [place] threatened to shut off services in your home? No Interpersonal Safety Within the last year, have you been humiliated or emotionally abused in other ways by anyone? No Within the last year, have you been kicked, hit, slapped, or otherwise physically hurt by anyone? No Discharge Needs Assessment Readmission Within the Last 30 Days no previous admission in last 30 days Current Outpatient/Agency/Support Group homecare agency ([facility] - SN 3 weekly (wound care) & [facility] x 2 weekly) Concerns to be Addressed home safety;discharge planning Patient/Family Anticipates Transition to home with help/services;inpatient rehabilitation facility Patient/Family Anticipated Services at Transition home health care;custodial;other (see comments) (inpatient rehab) Transportation Anticipated family or friend will provide;health plan transportation Current Discharge Risk physical impairment;lives alone;dependent with mobility/activities of daily living;chronically ill Discharge Coordination/Tasks Status Post Discharge Needs/Treatments PT;OT;Wound Care;Mcfp Home Visit 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 [facility] MEDICINE PROGRESS NOTE Assessment Mr. Blas Genao is a 63 y.o. year old male with a PMH significant for atrial flutter/fib, chronic diastolic CHF, diabetes, hypertension, hyperlipidemia, CPAP, PAD, CKD 3, MERVIN on CPAP who presented as direct admit with plans for left BKA on 11/05 secondary to calcaneal osteomyelitis Plan Principal Problem: Acute osteomyelitis of left calcaneus (HCC) (POA: Yes) Resolved Problems: Osteomyelitis of left calcaneal Bacteremia -Proteus mirabilis S/p right TMA S/p calcaneal ostectomy 08/2024 with wound VAC and increasing pain Orthopedics is primary ID consulted expanded coverage to high-dose daptomycin and meropenem due to history of MDRO: ESBL, VRE -contact isolation Scheduled left BKA on 11/05 Tylenol as needed for fever TTE due to bacteremia MRSA negative Daily labs Type II diabetes A1c 8.7 Metformin Glimepiride Sliding scale insulin Jardiance CHF Hypertension A-fib/flutter S/p Watchman, pacemaker PVD Metoprolol 50 mg twice daily Amiodarone 200 mg twice daily Amlodipine 10 mg Aspirin daily Bumex 2 mg daily Diet: Diet Diabetic/ Calorie Controlled; Carb Counting 60g/meal 1310-3745 kcal DVT Px: SCDs Status: Full Code Consults placed: Procedures Inpatient consult to Internal Medicine Inpatient consult to Infectious Diseases (Specify provider ) Inpatient consult to Social Work Barriers for discharge: IV antibiotics, fevers, scheduled for left BKA on 11/05 Total time spent during this encounter including chart review, bedside encounter, discussing plan of care with patient/family, collaboration with other disciplines and specialties was 35 minutes. -Of note, some information is being carried forward from prior records for informational purposes only and has been cited so deficiency, safety and quality of this patient's care is not compromised. Quality Metrics Indication - DVT PROPHYLAXIS Risk Assessment Scores and Dates: VTE Time Out VTE risk assessment NOT done - Click here to document Chemical Prophylaxis Chemical VTE prophylaxis NOT ordered. Click here to order if appropriate Mechanical Prophylaxis Mechanical VTE prophylaxis NOT ordered. Click here to order if appropriate Expected Date of Discharge 11/08/2024 Subjective Chief complaint No chief complaint on file. Patient is being seen for acute medical problems and follow-up for chronic medical issues as mentioned in the assessment and plan above. Overnight Events/Patient Discussion: Febrile overnight and during the day. Tmax 102 F. ID following switched to high- dose daptomycin andmeropenem. Patient denies: Chest Pain, SOB, Nausea, Vomiting Endorsed fever, chills, headache. Had some shaking on interview. Objective Vitals: 11/02/24 1825 11/02/24 2116 11/03/24 0416 11/03/24 0626 BP: (!) 147/66 (!) 143/66 135/63 Pulse: 86 74 73 Resp: 13 17 18 Temp: (!) 101.7 ??F (38.7 ??C) 100.1 ??F (37.8 ??C) (!) 102 ??F (38.9 ??C) 98.6 ??F (37 ??C) SpO2: 94% 93% 93% 11/03/24 0856 11/03/24 1412 11/03/24 1603 11/03/24 1723 BP: 127/63 130/68 Pulse: 68 85 Resp: 17 Temp: 97.2 ??F (36.2 ??C) (!) 100.6 ??F (38.1 ??C) 100.1 ??F (37.8 ??C) SpO2: 95% I/O last 3 completed shifts: In: 483 [P.O.:480; I.V.:3] Out: - I/O this shift: In: 1200 [P.O.:1200] Out: - Physical Exam Vitals and nursing note reviewed. Constitutional: General: He is not in acute distress. Appearance: Normal appearance. He is normal weight. He is ill-appearing. He is not toxic-appearing. HENT: Head: Normocephalic and atraumatic. Nose: Nose normal. Cardiovascular: Rate and Rhythm: Normal rate and regular rhythm. Pulses: Normal pulses. Heart sounds: Normal heart sounds. No murmur heard. Pulmonary: Effort: Pulmonary effort is normal. No respiratory distress. Breath sounds: Normal breath sounds. No wheezing or rales. Abdominal: General: Abdomen is flat. Bowel sounds are normal. There is no distension. Palpations: Abdomen is soft. Tenderness: There is no abdominal tenderness. There is no guarding. Musculoskeletal: Right lower leg: No edema. Left lower leg: No edema. Skin: General: Skin is warm and dry. Neurological: General: No focal deficit present. Mental Status: He is alert and oriented to person, place, and time. Psychiatric: Mood and Affect: Mood normal. Behavior: Behavior normal. Relevant data reviewed Results from last 7 days Lab Units 11/02/241999 WHITE BLOOD CELL COUNT Thou/uL 14.3* HEMOGLOBIN g/dL 9.3* HEMATOCRIT % 29.3* PLATELET COUNT Thou/uL 395 Results from last 7 days Lab Units 11/03/24 1143 11/02/24 2119 11/02/241999 SODIUM mmol/L -- -- 130* POTASSIUM mmol/L -- -- 4.0 CHLORIDE mmol/L -- -- 92* CO2 mmol/L -- -- 19* BUN mg/dL -- -- 41* CREATININE mg/dL -- -- 2.0* EGFR -- -- 37* GLUCOSE mg/dL -- -- 171* GLUCOSE, POC mg/dL 153* < > -- CALCIUM mg/dL -- -- 8.5* < > = values in this interval not displayed. No results found for: PROBNP Lab Results Component Value Date HGBA1C 8.7 (H) 09/03/2024 No results found for: LABBLOO No results found. No results found for this or any previous visit. Signature Juaquin Kern MD 11/03/2024 5:55 PM * Ewelina Ruiz PA-C - 11/03/2024 8:31 AM EST Orthopedic Surgery Progress Note: Per discussion with Dr. Mtz, we will hold on placing a PICC line until the patient's bloodcultures have resulted given the upcoming planned BKA. PICC order cancelled and may be reordered inthe future pending necessity. Ewelina Ruiz 11/03/2024 8:31 AM * Taina Palomino RN - 11/03/2024 8:00 AM EST 0800 Received an order for PICC placement . Medical record review showed patient has history of CKDstage 3a with current GFR 35. Blood culture was drawn 11/02/2024 @ 2000 pm. Last Tmax 102 @ 0416 am 11/03/2024. PICC team will proceed after renal clearance is in place and blood culture is negfative 48 hours from time was drawn and Tmax is less than 38 x24 hrs. PICC order was discontinued by FRANDY Vazquez @ 0831 am * Ewelina Ruiz PA-C - 11/03/2024 6:20 AM EST Orthopedic Progress Note Principal Problem: Acute osteomyelitis of left calcaneus (HCC) (POA: Yes) Resolved Problems: Assessment & Plan Assessment: 63 yo male admitted for IV antibiotics and L BKA on 11/05/[address] Camejo. Patient's dressing changed this AM on the LLE. Plan: Weightbearing status: NWB LLE, elevate extremity Antibiotics: IV vanco VTE prophylaxis: Asa 81 mg daily Pain control: multimodal []CMG conslt []ID consult []PICC line (ordered) []Demo Coordinator clinic: pre-amputation education/fitting []Blood cultures: pending []Dressing changes BID Subjective No complaints. No CP,SOB,N/V. Pain well controlled. Objective Last Vitals: Pulse:73,Resp:18,BP:135/63,SpO2:93 %,Weight:120 kg (264 lb 8 oz) Temp Last 24 hrs: Temp Min: 100.1 ??F (37.8 ??C) Max: 102 ??F (38.9 ??C) Physical Exam: Alert and oriented x3 in NAD. Some drainage on dressing, changed at bedside. Flicker EHL/FHL. No sensation distally per patient'sbaseline. Large wound over the posterior medial aspect of the foot with surrounding edema. Toes WWP. Labs: Recent Labs 11/02/241999 HCT 29.3* HGB 9.3* INR 1.3 CREAT 2.0* Sign Ewelina Ruiz PA-C 11/03/2024 6:20 AM * Casey Eric RN - 11/02/2024 8:07 PM EST Patient arrived around 1800 this evening to [place] [address] in no acute distress. Placed on contact precautions. LLE wound noted, dressing reinforced due to drainage. AxO x4. Temp noted, tylenol given. Fall and safety precautions initiated. Ortho messaged to place admission orders. Medications given per eMAR. Casey Eric RN documented in this encounter H&P Notes * Sheila Childs APRN - 11/05/2024 12:44 PM EST INTERVAL NOTE - DAY OF SURGERY/PROCEDURE This note validates the H&P. The patient has been examined and there are no changes to the H&P. Signature: Sheila Childs APRN Date: 11/05/2024 Time: 12:44 PM Source Note - POOJA Arias - 11/02/2024 6:34 PM EST Admission H&P Note Date of Admission: 11/02/2024 Admitting Orthopedic Physician: Dr. Camejo Reason for Admission: Left calc osteo Time patient evaluated: 19:00 Date and Time of Injury: N/A Name: Blas Genao Age: 63 y.o. Sex: male Assessment & Plan Assessment 63-year-old male with past medical history significant for afib/flutter, pacemaker, diabetes, GERD,GIB, MERVIN/CPAP, hypertension, hyperlipidemia, PAD, RLS and CKD with presents to [facility] inpatient floor for known left calc osteomyelitis with plans for a L BKA on 11/05/[address] Camejo Plan -Admit to Dr. Camejo -Consent obtained for PICC line and ordered -Plan for OR 11/05/24 for L BKA (consent obtained at this time and placed in chart) -Vanco -Non-weight bearing LLE -Elevate LLE -Continue Aspirin 81mg daily -Pain control -Home meds reordered -Dry dressing changes BID -Follow up admission labs and blood cultures -Medicine consulted for preoperative risk stratification and aid in medical management -Dr. Mtz from Infectious Disease consulted (she has seen patient in the past) -Demo Coordinator to be called for pre-amputation education/fitting in AM -No further acute Ortho intervention needed at this time -Patient and plan discussed with Dr. Camejo who agrees Subjective Chief Complaint Left foot pain History of Present Illness This is a 63-year-old male with a past medical history significant for atrial fibrillation, atrial flutter, pacemaker, diabetes, GERD, GIB, MERVIN/CPAP, hypertension, hyperlipidemia, PAD, RLS and CKD3 that presents to [facility] inpatient floor as a direct admit under Dr. Camejo's service today for known left calcaneous osteomyelitis. Patient presented to Dr. Camejo's office this morning with increasedpain, swelling and drainage from his left foot wound. He denies any recent fall or trauma. He denies any fevers/chills. He has currently been taking PO antibiotics at home. He states he discussed with Dr. Camejo coming to the hospital to begin Vancomycin and have a below the knee amputation on Friday. He is no longer on Eliquis. He is on Aspirin 81mg daily, last dose this morning. Review of Systems Positive for left foot pain, swelling and drainage. Denies fevers, chills, chest pain, shortness ofbreath, nausea, vomiting, neck pain, back pain, pain in other extremities, numbness/tingling. Objective Past Medical History: Diagnosis Date A-fib ([facility]) Acute osteomyelitis ([facility]) Atrial flutter ([facility]) Cardiac pacemaker 2016 Carotid atherosclerosis Charcot's joint of right foot 2015 Chronic sciatica Complete AV block ([facility]) Diabetes mellitus ([facility]) TYPE II Diabetic foot ulcer ([facility]) ED (erectile dysfunction) Edema ESBL (extended spectrum beta-lactamase) producing bacteria infection GERD (gastroesophageal reflux disease) GI bleed Hyperlipidemia Hypertension Leukocytosis Metabolic bone disease Multiple drug resistant organism ([facility]) culture positive Non healing left heel wound Obesity Osteoarthrosis Osteomyelitis of both feet ([facility]) PAD (peripheral artery disease) ([facility]) Primary osteoarthritis of knee Proteinuria Renal osteodystrophy Restless legs syndrome (RLS) no meds, lyrica helps Septic joint of left knee joint ([facility]) Sleep apnea BiPap Smoker Stage 3a chronic kidney disease (CKD) ([facility]) Past Surgical History: Procedure Laterality Date AMPUTATION Right 2017 TMA AORTOGRAM- ABDOMINAL Left 09/15/2024 Procedure: LEFT LOWER EXTREMITY ANGIOGRAM; Surgeon: Delbert Mcintosh MD; Location: Main OR; Service: Peripheral Vascular; Laterality: Left; BARIATRIC SURGERY 2018 CARDIAC ELECTROPHYSIOLOGY STUDY AND ABLATION x5 CARDIAC PACEMAKER PLACEMENT 2016 CARDIAC SURGERY 2020 watchman device CARDIOVERSION 07/2024 CC PERIPHERAL ANGIOGRAPHY Left 07/2024 LE CHANGE DRESSING WOUND VAC Left 09/10/2024 Procedure: APPLICATION OF WOUND VAC; Surgeon: Dallas Camejo MD; Location: [facility] OR; Service: Orthopaedics; Laterality: Left; FOOT SURGERY Right x5 INCISION AND DRAINAGE FOOT Left OH PROCEDURE MAZE AFIB OSTECTOMY CALCANEOUS Left 09/10/2024 Procedure: ANKLE PARTIAL CALCANECTOMY; Surgeon: Dallas Camejo MD; Location: [facility]; Service: Orthopaedics; Laterality: Left; wOUND PARTIALLY CLOSED SUPERFICIALLY, WOUND VAC PLACED TOTAL KNEE ARTHROPLASTY Left 2016 REVISION SAME YEAR/INFECTION Allergies Allergen Reactions Lisinopril Other (See Comments) Dehydration No family history on file. Social History Tobacco Use Smoking status: Former Current packs/day: 1.00 Average packs/day: 1 pack/day for 29.1 years (29.1 ttl pk-yrs) Types: Cigarettes Start date: 1976 Quit date: 2003 Smokeless tobacco: Never Substance Use Topics Alcohol use: Yes Alcohol/week: 21.0 standard drinks of alcohol Types: 21 Cans of beer per week Drug use: Never Medications Prior to Admission Medications: Medications Prior to Admission Medication Sig Dispense Refill Last Dose acetaminophen (TYLENOL) 325 MG tablet Take 3 tablets (975 mg total) by mouth 4 times daily (every 6hours) as needed for mild pain. 168 tablet 0 amiODARONE (PACERONE) 200 MG tablet Take 1 tablet (200 mg total) by mouth 2 times a day. amLODIPine (NORVASC) 10 MG tablet Take 1 tablet (10 mg total) by mouth. amoxicillin (AMOXIL) 500 MG capsule Take 1 capsule (500 mg total) by mouth 3 (three) times a day. For 1 week for DENTAL procedures amoxicillin (AMOXIL) 500 MG tablet Take 2 tablets (1,000 mg total) by mouth 2 (two) times a day. For 14 days apixaban (ELIQUIS) 5 MG tablet Take 1 tablet (5 mg total) by mouth 2 times a day. ascorbic acid (VITAMIN C) 500 MG tablet Take 1 tablet (500 mg total) by mouth daily. 14 tablet 0 bumetanide (BUMEX) 2 MG tablet Take 1 tablet (2 mg total) by mouth daily. Cholecalciferol (Vitamin D-3) 125 MCG (5000 UT) Tab Take 2 tablets by mouth every morning. ciprofloxacin (CIPRO) 500 MG tablet Take 1 tablet (500 mg total) by mouth 2 (two) times a day. Continuous Glucose Sensor (FreeStyle Wallace 3 Sensor) [facility] INJECT 1 DEVICE INTO THE SKIN EVERY 14 DAYS cyanocobalamin 2500 MCG Tab Take 1 tablet (2,500 mcg total) by mouth daily. donepezil (ARICEPT) 10 MG tablet Take 1 tablet (10 mg total) by mouth every morning. glipiZIDE (GLUCOTROL) 2.5 mg tablet Take 1 tablet (2.5 mg total) by mouth 2 times a day. Jardiance 25 MG tablet Take 1 tablet (25 mg total) by mouth daily. Magnesium 250 MG Tab Take 250 mg by mouth every morning. melatonin 10 MG Tab tablet Take 5 mg by mouth nightly. metFORMIN (GLUCOPHAGE) 1000 MG tablet Take 0.5 tablets (500 mg total) by mouth every morning with breakfast. metFORMIN (GLUCOPHAGE) 500 MG tablet Take 1 tablet (500 mg total) by mouth every morning with breakfast. methocarbamol (ROBAXIN) 500 MG tablet Take 1 tablet (500 mg total) by mouth 4 (four) times a day asneeded for muscle spasms. 20 tablet 0 metoPROLOL TARTRATE (LOPRESSOR) 50 MG tablet Take 1 tablet (50 mg total) by mouth 2 times a day. nicotine (NICODERM CQ) 7 MG/24HR patch Place 1 patch on the skin daily. oxyCODONE (ROXICODONE) 5 MG immediate release tablet Take 1-2 tablets (5-10 mg total) by mouth every 4 (four) hours as needed for severe pain. Max Daily Amount: 60 mg 42 tablet 0 PANTOprazole (PROTONIX) 40 MG EC tablet Take 1 tablet (40 mg total) by mouth daily. polyethylene glycol (miraLAx) 17 g packet Take 1 packet (17 g total) by mouth daily. 10 packet 0 pravastatin (PRAVACHOL) 20 MG tablet Take 1 tablet (20 mg total) by mouth daily. pregabalin (LYRICA) 150 MG capsule Take 1 capsule (150 mg total) by mouth 2 times a day. senna (SENOKOT) 8.6 MG Tab tablet Take 2 tablets by mouth daily as needed for constipation. 14 tablet 0 sulfamethoxazole-trimethoprim (BACTRIM DS,SEPTRA DS) 800-160 MG per tablet Take 1 tablet by mouth 2(two) times a day. 28 tablet 0 Medication/MAR Report: Medications Scheduled Medication Ordered Dose/Rate, Route, Frequency Last Action acetaminophen (TYLENOL) tablet 975 mg 975 mg, PO, Q6H JUDSON Ordered amiODARONE (PACERONE) tablet 200 mg 200 mg, PO, BID Ordered amLODIPine (NORVASC) tablet 10 mg 10 mg, PO, Daily Ordered [Provider Held] apixaban (ELIQUIS) tablet 5 mg On hold since today at 1830 until manually unheld; held by Prerna Arias Reason: Pre-procedure On hold since today at 1830 until manually unheld Hold reason: Pre-procedure 5 mg, PO, BID Ordered bumetanide (BUMEX) tablet 2 mg 2 mg, PO, Daily Ordered cyanocobalamin (VITAMIN B-12) tablet 2,500 mcg 2,500 mcg, PO, Daily Ordered docusate sodium (COLACE) capsule 100 mg 100 mg, PO, BID Ordered donepezil (ARICEPT) tablet 10 mg 10 mg, PO, QAM Ordered empagliflozin (JARDIANCE) 25 mg 25 mg, PO, Daily Ordered glimepiride (AMARYL) tablet 2 mg 2 mg, PO, Daily with breakfast Ordered insulin lispro (HumaLOG/ADMELOG) 100 units/mL injection 1-4 Units 1-4 Units, SC, NIGHTLY & 2AM Ordered insulin lispro (HumaLOG/ADMELOG) 100 units/mL injection 1-6 Units 1-6 Units, SC, TID with meals Ordered metFORMIN (GLUCOPHAGE) tablet 500 mg 500 mg, PO, Daily with breakfast Ordered metoPROLOL TARTRATE (LOPRESSOR) tablet 50 mg 50 mg, PO, BID Ordered PANTOprazole (PROTONIX) EC tablet 40 mg 40 mg, PO, Daily Ordered pravastatin (PRAVACHOL) tablet 20 mg 20 mg, PO, Daily Ordered pregabalin (LYRICA) capsule 150 mg 150 mg, PO, BID Ordered senna (SENOKOT) tablet 2 tablet 2 tablet, PO, Nightly Ordered PRN Medication Ordered Dose/Rate, Route, Frequency Last Action bisacodyl (DULCOLAX) EC tablet 5 mg 5 mg, PO, Daily PRN Ordered bisacodyl (DULCOLAX) suppository 10 mg 10 mg, RE, Daily PRN Ordered calcium carbonate (TUMS) chewable tablet 1,000 mg 1,000 mg, PO, Q12H PRN Ordered dextrose 50 % solution 12.5 g (Or Linked Group #1) 12.5 g, IV, Q15 Min PRN Ordered dextrose 50 % solution 25 g (Or Linked Group #1) 25 g, IV, Q15 Min PRN Ordered glucagon (GLUCAGEN) injection 1 mg (Or Linked Group #1) 1 mg, IM, Daily PRN Ordered glucose (GLUTOSE 15) 40 % oral gel 37.5 g (Or Linked Group #1) 1 Tube, PO, Q15 Min PRN Ordered glucose (GLUTOSE 15) 40 % oral gel 75 g (Or Linked Group #1) 2 Tube, PO, Q15 Min PRN Ordered magnesium hydroxide (MILK OF MAGNESIA) 400 mg/5 mL suspension 30 mL 30 mL, PO, Daily PRN Ordered melatonin tablet 3 mg 3 mg, PO, Nightly PRN Ordered methocarbamol (ROBAXIN) tablet 750 mg 750 mg, PO, 4x Daily PRN Ordered ondansetron (ZOFRAN-ODT) disintegrating tablet 4 mg 4 mg, PO, Q6H PRN Ordered oxyCODONE (ROXICODONE) immediate release tablet 10 mg 10 mg, PO, Q3H PRN Ordered oxyCODONE (ROXICODONE) immediate release tablet 5 mg 5 mg, PO, Q3H PRN Ordered polyethylene glycol (miraLAx) packet 17 g 17 g, PO, Daily PRN Ordered Physical Exam Vitals: 11/02/24 1825 BP: (!) 147/66 BP Location: Right arm Patient Position: Sitting Pulse: 86 Resp: 13 Temp: (!) 101.7 ??F (38.7 ??C) TempSrc: Tympanic SpO2: 94% No intake or output data in the 24 hours ending 11/02/24 1834 General: Patient resting, in no acute distress, watching TV HEENT: Normocephalic atraumatic, EOMI, moist mucous membranes Skin: Bilateral lower extremity foot SRINIVAS's C/D/I Heart: RRR, S1 & S2 noted Lungs: Clear bilaterally Abdomen: Soft, non-distended, non-tender, bowel sounds present Musculoskeletal: LLE: Flicker EHL/FHL. No sensation to light touch in 1st web space - patient states this is his baseline. Foot and extremity edematous. Compartments are soft and compressible. Toes warm and well perfused. Psych: AOx3 Relevant data reviewed: CBC, BMP, PT/INR, type and screen, Nutrition labs, Blood cultures, MRSA, SED/CRP - ordered/pending Imaging Studies None ECG: ordered/pending Sign: POOJA Arias 11/02/2024 6:34 PM * POOJA Arias - 11/02/2024 6:34 PM EST Admission H&P Note Date of Admission: 11/02/2024 Admitting Orthopedic Physician: Dr. Camejo Reason for Admission: Left calc osteo Time patient evaluated: 19:00 Date and Time of Injury: N/A Name: Blas Genao Age: 63 y.o. Sex: male Assessment & Plan Assessment 63-year-old male with past medical history significant for afib/flutter, pacemaker, diabetes, GERD,GIB, MERVIN/CPAP, hypertension, hyperlipidemia, PAD, RLS and CKD with presents to [facility] inpatient floor for known left calc osteomyelitis with plans for a L BKA on 11/05/[address] Camejo Plan -Admit to Dr. Camejo -Consent obtained for PICC line and ordered -Plan for OR 11/05/24 for L BKA (consent obtained at this time and placed in chart) -Vanco -Non-weight bearing LLE -Elevate LLE -Continue Aspirin 81mg daily -Pain control -Home meds reordered -Dry dressing changes BID -Follow up admission labs and blood cultures -Medicine consulted for preoperative risk stratification and aid in medical management -Dr. Mtz from Infectious Disease consulted (she has seen patient in the past) -Demo Coordinator to be called for pre-amputation education/fitting in AM -No further acute Ortho intervention needed at this time -Patient and plan discussed with Dr. Camejo who agrees Subjective Chief Complaint Left foot pain History of Present Illness This is a 63-year-old male with a past medical history significant for atrial fibrillation, atrial flutter, pacemaker, diabetes, GERD, GIB, MERVIN/CPAP, hypertension, hyperlipidemia, PAD, RLS and CKD3 that presents to [facility] inpatient floor as a direct admit under Dr. Camejo's service today for known left calcaneous osteomyelitis. Patient presented to Dr. Camejo's office this morning with increasedpain, swelling and drainage from his left foot wound. He denies any recent fall or trauma. He denies any fevers/chills. He has currently been taking PO antibiotics at home. He states he discussed with Dr. Camejo coming to the hospital to begin Vancomycin and have a below the knee amputation on Friday. He is no longer on Eliquis. He is on Aspirin 81mg daily, last dose this morning. Review of Systems Positive for left foot pain, swelling and drainage. Denies fevers, chills, chest pain, shortness ofbreath, nausea, vomiting, neck pain, back pain, pain in other extremities, numbness/tingling. Objective Past Medical History: Diagnosis Date A-fib ([facility]) Acute osteomyelitis ([facility]) Atrial flutter ([facility]) Cardiac pacemaker 2016 Carotid atherosclerosis Charcot's joint of right foot 2015 Chronic sciatica Complete AV block ([facility]) Diabetes mellitus ([facility]) TYPE II Diabetic foot ulcer ([facility]) ED (erectile dysfunction) Edema ESBL (extended spectrum beta-lactamase) producing bacteria infection GERD (gastroesophageal reflux disease) GI bleed Hyperlipidemia Hypertension Leukocytosis Metabolic bone disease Multiple drug resistant organism ([facility]) culture positive Non healing left heel wound Obesity Osteoarthrosis Osteomyelitis of both feet ([facility]) PAD (peripheral artery disease) ([facility]) Primary osteoarthritis of knee Proteinuria Renal osteodystrophy Restless legs syndrome (RLS) no meds, lyrica helps Septic joint of left knee joint ([facility]) Sleep apnea BiPap Smoker Stage 3a chronic kidney disease (CKD) ([facility]) Past Surgical History: Procedure Laterality Date AMPUTATION Right 2017 TMA AORTOGRAM- ABDOMINAL Left 09/15/2024 Procedure: LEFT LOWER EXTREMITY ANGIOGRAM; Surgeon: Delbert Mcintosh MD; Location: [facility]; Service: Peripheral Vascular; Laterality: Left; BARIATRIC SURGERY 2018 CARDIAC ELECTROPHYSIOLOGY STUDY AND ABLATION x5 CARDIAC PACEMAKER PLACEMENT 2016 CARDIAC SURGERY 2020 watchman device CARDIOVERSION 07/2024 CC PERIPHERAL ANGIOGRAPHY Left 07/2024 LE CHANGE DRESSING WOUND VAC Left 09/10/2024 Procedure: APPLICATION OF WOUND VAC; Surgeon: Dallas Camejo MD; Location: [facility] OR; Service: Orthopaedics; Laterality: Left; FOOT SURGERY Right x5 INCISION AND DRAINAGE FOOT Left OH PROCEDURE MAZE AFIB OSTECTOMY CALCANEOUS Left 09/10/2024 Procedure: ANKLE PARTIAL CALCANECTOMY; Surgeon: Dallas Camejo MD; Location: [facility] OR; Service: Orthopaedics; Laterality: Left; wOUND PARTIALLY CLOSED SUPERFICIALLY, WOUND VAC PLACED TOTAL KNEE ARTHROPLASTY Left 2016 REVISION SAME YEAR/INFECTION Allergies Allergen Reactions Lisinopril Other (See Comments) Dehydration No family history on file. Social History Tobacco Use Smoking status: Former Current packs/day: 1.00 Average packs/day: 1 pack/day for 29.1 years (29.1 ttl pk-yrs) Types: Cigarettes Start date: 1976 Quit date: 2003 Smokeless tobacco: Never Substance Use Topics Alcohol use: Yes Alcohol/week: 21.0 standard drinks of alcohol Types: 21 Cans of beer per week Drug use: Never Medications Prior to Admission Medications: Medications Prior to Admission Medication Sig Dispense Refill Last Dose acetaminophen (TYLENOL) 325 MG tablet Take 3 tablets (975 mg total) by mouth 4 times daily (every 6hours) as needed for mild pain. 168 tablet 0 amiODARONE (PACERONE) 200 MG tablet Take 1 tablet (200 mg total) by mouth 2 times a day. amLODIPine (NORVASC) 10 MG tablet Take 1 tablet (10 mg total) by mouth. amoxicillin (AMOXIL) 500 MG capsule Take 1 capsule (500 mg total) by mouth 3 (three) times a day. For 1 week for DENTAL procedures amoxicillin (AMOXIL) 500 MG tablet Take 2 tablets (1,000 mg total) by mouth 2 (two) times a day. For 14 days apixaban (ELIQUIS) 5 MG tablet Take 1 tablet (5 mg total) by mouth 2 times a day. ascorbic acid (VITAMIN C) 500 MG tablet Take 1 tablet (500 mg total) by mouth daily. 14 tablet 0 bumetanide (BUMEX) 2 MG tablet Take 1 tablet (2 mg total) by mouth daily. Cholecalciferol (Vitamin D-3) 125 MCG (5000 UT) Tab Take 2 tablets by mouth every morning. ciprofloxacin (CIPRO) 500 MG tablet Take 1 tablet (500 mg total) by mouth 2 (two) times a day. Continuous Glucose Sensor (FreeStyle Wallace 3 Sensor) [facility] INJECT 1 DEVICE INTO THE SKIN EVERY 14 DAYS cyanocobalamin 2500 MCG Tab Take 1 tablet (2,500 mcg total) by mouth daily. donepezil (ARICEPT) 10 MG tablet Take 1 tablet (10 mg total) by mouth every morning. glipiZIDE (GLUCOTROL) 2.5 mg tablet Take 1 tablet (2.5 mg total) by mouth 2 times a day. Jardiance 25 MG tablet Take 1 tablet (25 mg total) by mouth daily. Magnesium 250 MG Tab Take 250 mg by mouth every morning. melatonin 10 MG Tab tablet Take 5 mg by mouth nightly. metFORMIN (GLUCOPHAGE) 1000 MG tablet Take 0.5 tablets (500 mg total) by mouth every morning with breakfast. metFORMIN (GLUCOPHAGE) 500 MG tablet Take 1 tablet (500 mg total) by mouth every morning with breakfast. methocarbamol (ROBAXIN) 500 MG tablet Take 1 tablet (500 mg total) by mouth 4 (four) times a day asneeded for muscle spasms. 20 tablet 0 metoPROLOL TARTRATE (LOPRESSOR) 50 MG tablet Take 1 tablet (50 mg total) by mouth 2 times a day. nicotine (NICODERM CQ) 7 MG/24HR patch Place 1 patch on the skin daily. oxyCODONE (ROXICODONE) 5 MG immediate release tablet Take 1-2 tablets (5-10 mg total) by mouth every 4 (four) hours as needed for severe pain. Max Daily Amount: 60 mg 42 tablet 0 PANTOprazole (PROTONIX) 40 MG EC tablet Take 1 tablet (40 mg total) by mouth daily. polyethylene glycol (miraLAx) 17 g packet Take 1 packet (17 g total) by mouth daily. 10 packet 0 pravastatin (PRAVACHOL) 20 MG tablet Take 1 tablet (20 mg total) by mouth daily. pregabalin (LYRICA) 150 MG capsule Take 1 capsule (150 mg total) by mouth 2 times a day. senna (SENOKOT) 8.6 MG Tab tablet Take 2 tablets by mouth daily as needed for constipation. 14 tablet 0 sulfamethoxazole-trimethoprim (BACTRIM DS,SEPTRA DS) 800-160 MG per tablet Take 1 tablet by mouth 2(two) times a day. 28 tablet 0 Medication/NOV Report: Medications Scheduled Medication Ordered Dose/Rate, Route, Frequency Last Action acetaminophen (TYLENOL) tablet 975 mg 975 mg, PO, Q6H JUDSON Ordered amiODARONE (PACERONE) tablet 200 mg 200 mg, PO, BID Ordered amLODIPine (NORVASC) tablet 10 mg 10 mg, PO, Daily Ordered [Provider Held] apixaban (ELIQUIS) tablet 5 mg On hold since today at 1830 until manually unheld; held by Prerna Arias Reason: Pre-procedure On hold since today at 1830 until manually unheld Hold reason: Pre-procedure 5 mg, PO, BID Ordered bumetanide (BUMEX) tablet 2 mg 2 mg, PO, Daily Ordered cyanocobalamin (VITAMIN B-12) tablet 2,500 mcg 2,500 mcg, PO, Daily Ordered docusate sodium (COLACE) capsule 100 mg 100 mg, PO, BID Ordered donepezil (ARICEPT) tablet 10 mg 10 mg, PO, QAM Ordered empagliflozin (JARDIANCE) 25 mg 25 mg, PO, Daily Ordered glimepiride (AMARYL) tablet 2 mg 2 mg, PO, Daily with breakfast Ordered insulin lispro (HumaLOG/ADMELOG) 100 units/mL injection 1-4 Units 1-4 Units, SC, NIGHTLY & 2AM Ordered insulin lispro (HumaLOG/ADMELOG) 100 units/mL injection 1-6 Units 1-6 Units, SC, TID with meals Ordered metFORMIN (GLUCOPHAGE) tablet 500 mg 500 mg, PO, Daily with breakfast Ordered metoPROLOL TARTRATE (LOPRESSOR) tablet 50 mg 50 mg, PO, BID Ordered PANTOprazole (PROTONIX) EC tablet 40 mg 40 mg, PO, Daily Ordered pravastatin (PRAVACHOL) tablet 20 mg 20 mg, PO, Daily Ordered pregabalin (LYRICA) capsule 150 mg 150 mg, PO, BID Ordered senna (SENOKOT) tablet 2 tablet 2 tablet, PO, Nightly Ordered PRN Medication Ordered Dose/Rate, Route, Frequency Last Action bisacodyl (DULCOLAX) EC tablet 5 mg 5 mg, PO, Daily PRN Ordered bisacodyl (DULCOLAX) suppository 10 mg 10 mg, RE, Daily PRN Ordered calcium carbonate (TUMS) chewable tablet 1,000 mg 1,000 mg, PO, Q12H PRN Ordered dextrose 50 % solution 12.5 g (Or Linked Group #1) 12.5 g, IV, Q15 Min PRN Ordered dextrose 50 % solution 25 g (Or Linked Group #1) 25 g, IV, Q15 Min PRN Ordered glucagon (GLUCAGEN) injection 1 mg (Or Linked Group #1) 1 mg, IM, Daily PRN Ordered glucose (GLUTOSE 15) 40 % oral gel 37.5 g (Or Linked Group #1) 1 Tube, PO, Q15 Min PRN Ordered glucose (GLUTOSE 15) 40 % oral gel 75 g (Or Linked Group #1) 2 Tube, PO, Q15 Min PRN Ordered magnesium hydroxide (MILK OF MAGNESIA) 400 mg/5 mL suspension 30 mL 30 mL, PO, Daily PRN Ordered melatonin tablet 3 mg 3 mg, PO, Nightly PRN Ordered methocarbamol (ROBAXIN) tablet 750 mg 750 mg, PO, 4x Daily PRN Ordered ondansetron (ZOFRAN-ODT) disintegrating tablet 4 mg 4 mg, PO, Q6H PRN Ordered oxyCODONE (ROXICODONE) immediate release tablet 10 mg 10 mg, PO, Q3H PRN Ordered oxyCODONE (ROXICODONE) immediate release tablet 5 mg 5 mg, PO, Q3H PRN Ordered polyethylene glycol (miraLAx) packet 17 g 17 g, PO, Daily PRN Ordered Physical Exam Vitals: 11/02/24 1825 BP: (!) 147/66 BP Location: Right arm Patient Position: Sitting Pulse: 86 Resp: 13 Temp: (!) 101.7 ??F (38.7 ??C) TempSrc: Tympanic SpO2: 94% No intake or output data in the 24 hours ending 11/02/24 1834 General: Patient resting, in no acute distress, watching TV HEENT: Normocephalic atraumatic, EOMI, moist mucous membranes Skin: Bilateral lower extremity foot SRINIVAS's C/D/I Heart: RRR, S1 & S2 noted Lungs: Clear bilaterally Abdomen: Soft, non-distended, non-tender, bowel sounds present Musculoskeletal: LLE: Flicker EHL/FHL. No sensation to light touch in 1st web space - patient states this is his baseline. Foot and extremity edematous. Compartments are soft and compressible. Toes warm and well perfused. Psych: AOx3 Relevant data reviewed: CBC, BMP, PT/INR, type and screen, Nutrition labs, Blood cultures, MRSA, SED/CRP - ordered/pending Imaging Studies None ECG: ordered/pending Sign: POOJA Arias 11/02/2024 6:34 PM documented in this encounter Procedure Notes * Darrell Carcamo PA-C - 11/08/2024 6:31 PM ESTAssociated Order(s): Central Line Insertion Central Line Insertion Date/Time: 11/08/2024 6:31 PM Performed by: Darrell Carcamo PA-C Authorized by: Darrell Carcamo PA-C Consent: Written consent obtained. Consent given by: patient Patient understanding: patient states understanding of the procedure being performed Patient consent: the patient's understanding of the procedure matches consent given Relevant documents: relevant documents present and verified Patient identity confirmed: arm band Time out: Immediately prior to procedure a time out was called to verify the correct patient, procedure, equipment, system support developer and site/side marked as required. Indications: vascular access Anesthesia: local infiltration Anesthesia: Local Anesthetic: lidocaine 1% without epinephrine Sedation: Patient sedated: yes Sedation type: moderate (conscious) sedation Sedatives: midazolam Vitals: Vital signs were monitored during sedation. Preparation: skin prepped with 2% chlorhexidine Skin prep agent dried: skin prep agent completely dried prior to procedure Sterile barriers: all five maximum sterile barriers used - cap, mask, sterile gown, sterile gloves,and large sterile sheet Hand hygiene: hand hygiene performed prior to central venous catheter insertion Location details: right internal jugular Patient position: Trendelenburg Catheter size: 7.5 Fr Pre-procedure: landmarks identified Ultrasound guidance: yes Sterile ultrasound techniques: sterile gel and sterile probe covers were used Number of attempts: 2 Successful placement: yes Post-procedure: line sutured and dressing applied Assessment: blood return through all ports, placement verified by x-ray and no pneumothorax on x-ray Patient tolerance: patient tolerated the procedure well with no immediate complications Comments: Precepted by Eunice Garrison APRN documented in this encounter Consult Notes * Alice Cabrera LCSW - 11/22/2024 12:59 PM ESTAssociated Order(s): IP CONSULT TO SOCIAL WORK SW reconsulted: Sister Jessica requesting SW consult, pt really upset about diagnosis and wants patient to start focusing on getting better. SW reviewed record. Pt seen by Social Work Services this admission. Pt appointed his son and sister as his Healthcare Representatives. HCR- Blas and Jessica. Copy in [employer]. SW to f/u with pt this afternoon. Addendum: 1:30pm SW met with pt today for support. Blas was sitting in his chair, open to visit. Very social and pleasant. Very future oriented with the hopes of a return to work, if he chooses based on his recovery. 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 He is anticipating rehab in a day or so. States he's waiting to hear if a bed has become available.Shared he may be going to the IRU. Pt shared once he returns home his son Blas will be moving in with him for however long he may need help. Pt shared he had been non weight bearing since last July. States optimism in making changes which would support his independence and mobility. Reports he wants to purchase a motorized wheelchair to use as needed. He looks forward to being fit with a prosthetic when proper healing is complete. Pt coping as best he can at this time. Spoke with Case Coordination. Pt for PPM interrogation today and sleep oximetry testing this evening. SW to follow. Signed: Alice Cabrera LCSW * POOJA Brown - 11/19/2024 11:37 AM ESTAssociated Order(s): IP CONSULT TO INTERVENTIONAL RADIOLOGY IR Consultation Note Date of Consult: 11/19/2024 Current Attending: Gianluca Calles MD Name: Blas Genao Age: 63 y.o. : 1960 Sex: male Assessment and Plan: Chart and imaging reviewed. 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 Unable to get picc due to CKD which is documented by nephrology. Procedure will be scheduled pending further RN screening. POOJA Frank 11/19/2024 11:37 AM Please direct any questions regarding guidelines to the screening nurse at ext: [phone] Please direct any questions regarding procedure time/ date to the specific imaging modality: US: ext: [id number] CT: ext: [id number] Fluoroscopy: ext: [id number] IR: ext: [id number] Consent: The patient is able to give consent according to the consult request. NPO required for procedure: Yes, time to be determined and communicated by the IR screening team. Medication hold required for procedure: None. Modality: IR Meds: Medications Scheduled Medication Ordered Dose/Rate, Route, Frequency Last Action acetaminophen (TYLENOL) tablet 975 mg 975 mg, PO, Q6H JUDSON Given, 975 mg at 11/19 1020 amiODARONE (PACERONE) tablet 200 mg 200 mg, PO, Daily Given, 200 mg at 11/19 1022 amLODIPine (NORVASC) tablet 10 mg 10 mg, PO, Daily Given, 10 mg at 11/19 1021 [Provider Held] bumetanide (BUMEX) tablet 2 mg On hold since today at 1040 until manually unheld; held by Gayle Ren Reason: Change in lab value On hold since today at 1040 until manually unheld Hold reason: Change in lab value 2 mg, PO, Daily Given, 2 mg at 11/19 1021 buPROPion (WELLBUTRIN SR) 12 hr tablet 150 mg 150 mg, PO, BID Given, 150 mg at 11/19 1020 calcium citrate (CALCITRATE) tablet 950 mg 950 mg, PO, BID with meals Given, 950 mg at 11/19 1028 cefTRIAXone (ROCEPHIN) 2 g in sodium chloride-MBP (NS) 100 mL IVPB-MBP 2 g, IV, Q24H New Bag, 2 g at 11/19 1025 chlorhexidine gluconate 2 % wipes - urethral catheter CHG application No Dose/Rate, TOP, Daily Given, No Dose/Rate at 11/18 1031 cholecalciferol tablet 2,000 Units 2,000 Units, PO, Daily Given, 2,000 Units at 11/19 1021 cyanocobalamin (VITAMIN B-12) tablet 2,500 mcg 2,500 mcg, PO, Daily Given, 2,500 mcg at 11/19 1020 DAPTOmycin (CUBICIN) 975 mg in sodium chloride (NS) 0.9 % 50 mL IVPB 10 mg/kg, IV, Q24H New Bag, 975 mg at 11/18 1426 darbepoetin vern (ARANESP) injection 150 mcg 150 mcg, SC, Once Ordered donepezil (ARICEPT) tablet 10 mg 10 mg, PO, QAM Given, 10 mg at 11/19 1028 [Provider Held] empagliflozin (JARDIANCE) 25 mg On hold since Fri11/04/2024 at 1503 until manually unheld; held by Gayle Rey Reason: Pre-procedure On hold since Fri11/04/2024 at 1503 until manually unheld (Needs Review) Hold reason: Pre-procedure 25 mg, PO, Daily Given, 25 mg at 11/04 0756 folic acid (FOLVITE) tablet 1 mg 1 mg, PO, Daily Given, 1 mg at 11/19 1021 [Provider Held] glimepiride (AMARYL) tablet 2 mg On hold since Fri11/04/2024 at 1503 until manually unheld; held by Gayle Rey Reason: Pre-procedure On hold since Fri11/04/2024 at 1503 until manually unheld (Needs Review) Hold reason: Pre-procedure 2 mg, PO, Daily with breakfast Given, 2 mg at 11/04 0757 [Provider Held] heparin (porcine) 5000 unit/mL injection 5,000 Units On hold since Fri11/16/2024 [id number] until manually unheld; held by Herberth Whitmore Reason: Pre-procedure On hold since Fri11/16/2024 at 2000 until manually unheld (Needs Review) Hold reason: Pre-procedure 5,000 Units, SC, Q8H JUDSON Given, 5,000 Units at 11/16 1714 insulin glargine (LANtus/SEMGLEE) 100 units/mL injection 10 Units 10 Units, SC, Daily Given, 10 Units at 11/19 1020 insulin lispro (HumaLOG/ADMELOG) 100 units/mL injection 1-6 Units 1-6 Units, SC, TID with meals Given, 2 Units at 11/19 1022 insulin lispro (HumaLOG/ADMELOG) 100 units/mL injection 3 Units 3 Units, SC, TID with meals Given, 3 Units at 11/19 1023 methocarbamol (ROBAXIN) tablet 1,000 mg 1,000 mg, PO, 4x Daily Given, 1,000 mg at 11/19 1028 metoPROLOL TARTRATE (LOPRESSOR) tablet 50 mg 50 mg, PO, BID Given, 50 mg at 11/19 1021 multivitamin with minerals tablet 1 tablet 1 tablet, PO, Daily Given, 1 tablet at 11/19 1021 nicotine (NICODERM CQ) 21 MG/24HR patch 1 patch 1 patch, TD, Daily Patch Applied, 1 patch at 11/19 1023 PANTOprazole (PROTONIX) EC tablet 40 mg 40 mg, PO, Daily Given, 40 mg at 11/19 1022 polyethylene glycol (miraLAx) packet 17 g 17 g, PO, Daily Given, 17 g at 11/19 102 [Provider Held] pravastatin (PRAVACHOL) tablet 20 mg On hold since Fri11/03/2024 at 0850 until manually unheld; held by Ena Mtz MDHold Reason: Other - Comment requiredHold Comments: While on IV daptomycin On hold since Fri11/03/2024 at 0850 until manually unheld (Needs Review) Hold reason: Other - Comment required, Hold comment: While on IV daptomycin 20 mg, PO, Daily Ordered pregabalin (LYRICA) capsule 100 mg 100 mg, PO, TID Given, 100 mg at 11/18 2116 senna-docusate (SENNA-S) 8.6-50 MG tablet 2 tablet 2 tablet, PO, BID Given, 2 tablet at 11/19 101 thiamine mononitrate (VITAMIN B-1) tablet 200 mg 200 mg, PO, Daily Given, 200 mg at 11/19 1022 PRN Medication Ordered Dose/Rate, Route, Frequency Last Action acetaminophen (TYLENOL) tablet 975 mg 975 mg, PO, Q6H PRN Ordered benzocaine-menthol (CHLORASEPTIC) 6-10 MG lozenge 1 lozenge 1 lozenge, MT, Q2H PRN Ordered bisacodyl (DULCOLAX) suppository 10 mg 10 mg, RE, Daily PRN Ordered calcium carbonate (TUMS) chewable tablet 1,000 mg 1,000 mg, PO, Q12H PRN Ordered carboxymethylcellulose (REFRESH PLUS) 0.5 % ophthalmic solution 2 drop 2 drop, Each Eye, Q2H PRN Ordered HYDROmorphone (DILAUDID) tablet 2 mg (Or Linked Group #1) 2 mg, PO, Q3H PRN See Alternative, 11/19 045 HYDROmorphone (DILAUDID) tablet 4 mg (Or Linked Group #1) 4 mg, PO, Q3H PRN Given, 4 mg at 11/19 045 ipratropium-albuterol (DUONEB) 0.5-2.5 mg/3 mL nebulizer solution 3 mL 3 mL, NEBULIZATION, Q2H PRN Given, 3 mL at 11/07 1025 lactulose (ENULOSE) 10 gm/15 mL solution 20 g 20 g, PO, Q4H PRN Ordered melatonin tablet 3 mg 3 mg, PO, Nightly PRN Given, 3 mg at 11/16 2214 naloxone (NARCAN) 0.4 mg/mL injection 0.4 mg 0.4 mg, IV, Q5 Min PRN Ordered naloxone (NARCAN) 0.4 mg/mL injection 0.4 mg 0.4 mg, IV, Q5 Min PRN Ordered ondansetron (ZOFRAN) injection 4 mg 4 mg, IV, Q6H PRN Given, 4 mg at 11/17 1639 Allergies: Allergies Allergen Reactions Lisinopril Other (See Comments) Dehydration Recent Labs: Lab Results Component Value Date PLT 354 11/19/2024 Lab Results Component Value Date INR 1.3 11/05/2024 Lab Results Component Value Date CREAT 1.8 (H) 11/19/2024 BUN 43 (H) 11/19/2024 NA 132 (L) 11/19/2024 K 3.7 11/19/2024 CL 92 (L) 11/19/2024 CO2 30 11/19/2024 Vitals: Vitals: 11/19/24 0420 11/19/24 0500 11/19/24 0815 11/19/24 1018 BP: (!) 113/57 139/60 (!) 111/53 BP Location: Right arm Right arm Right arm Patient Position: Lying Lying Lying Pulse: (!) 58 (!) 58 (!) 58 Resp: 18 18 18 Temp: 96.4 ??F (35.8 ??C) 97 ??F (36.1 ??C) TempSrc: Tympanic Tympanic SpO2: 96% 95% Weight: 99.3 kg (218 lb 14.7 oz) Height: * Anmol Reynoso MD - 11/19/2024 10:09 AM EST Images from the original note were not included. Nephrology Consult Note Blas Genao Date of Consult: 11/19/2024 Patient's Primary Care Physician: Lee Fabian MD Physician Requesting Consult: Dr Gianluca Calles Reason for Consultation: Acute kidney injury and Chronic kidney disease Assessment & Plan Mr. 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 Hospital course complicated by: - nonhealing left lower extremity ulcer and is now status left BKA. 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 Followed chronically by Dr Lopez in [place] Cr peak this admission 2.1mg/dL in the setting of bacteremia and endocarditis. 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 Overall suggesting a hemodynamic renal injury improved with aggressive diuresis Net -27L Plan: - holding PO bumex today given hypo - euvolemia - monitor Cr, now héctor at 1.8mg/dL - regarding the question of mcfp PICC for Abx. This patient is high risk for developing ESRD and need for AV access. As such his peripheral veins should be preserved especially with his vasculopath history. As such he should NOT receive a picc. Please pursue tunneled proline / melara. 2. 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 Hyponatremia Hypovolemic Imrpoving since transitioning from IV to PO bumex. Plan; - hold PO bumex - Simple fluid restriction Subjective On my assessment patient is in good spirits. He has good UOP He denies dyspnea. Review of Systems Constitutional: negative, no fever Eyes: negative, no vision changes Ears, nose, mouth, throat, and face: negative Respiratory: negative, no SOB currently. Cardiovascular: negative, no C/P now. Gastrointestinal: negative, no abd pain Genitourinary:negative, no dysuria Hematologic/lymphatic: negative Musculoskeletal:negative, no joint pains currently Neurological: negative, No JOY now Behavioral/Psych: negative Endocrine: negative Remainder of ROS negative but for that detailed above. Objective Medical History Past Medical History: Diagnosis Date A-fib ([facility]) Acute osteomyelitis ([facility]) Atrial flutter ([facility]) Cardiac pacemaker 2016 Carotid atherosclerosis Charcot's joint of right foot 2015 Chronic sciatica Complete AV block ([facility]) Diabetes mellitus ([facility]) TYPE II Diabetic foot ulcer ([facility]) ED (erectile dysfunction) Edema ESBL (extended spectrum beta-lactamase) producing bacteria infection GERD (gastroesophageal reflux disease) GI bleed Hyperlipidemia Hypertension Leukocytosis Metabolic bone disease Multiple drug resistant organism ([facility]) culture positive Non healing left heel wound Obesity Osteoarthrosis Osteomyelitis of both feet ([facility]) PAD (peripheral artery disease) Primary osteoarthritis of knee Proteinuria Renal osteodystrophy Restless legs syndrome (RLS) no meds, lyrica helps Septic joint of left knee joint ([facility]) Sleep apnea BiPap Smoker Stage 3a chronic kidney disease (CKD) ([facility]) Past Surgical History: Procedure Laterality Date AMPUTATION Right 2018 TMA AMPUTATION BELOW KNEE Left 11/05/2024 Procedure: LEFT BELOW KNEE AMPUTATION; Surgeon: Dallas Camejo MD; Location: [facility] OR; Service: Orthopaedics; Laterality: Left; AORTOGRAM- ABDOMINAL Left 09/15/2024 Procedure: LEFT LOWER EXTREMITY ANGIOGRAM; Surgeon: Delbert Mcintosh MD; Location: [facility] OR; Service: Peripheral Vascular; Laterality: Left; BARIATRIC SURGERY 2018 CARDIAC ELECTROPHYSIOLOGY STUDY AND ABLATION x5 CARDIAC PACEMAKER PLACEMENT 2016 CARDIAC SURGERY 2020 watchman device CARDIOVERSION 07/2024 CC PERIPHERAL ANGIOGRAPHY Left 07/2024 LE CHANGE DRESSING WOUND VAC Left 09/10/2024 Procedure: APPLICATION OF WOUND VAC; Surgeon: Dallas Camejo MD; Location: [facility] OR; Service: Orthopaedics; Laterality: Left; EXTRACTION LEAD(S) LASER FROM DUAL PM SYSTEM Left 11/17/2024 Procedure: Extraction lead(s) laser from dual PM system; [id number]; Surgeon: Rui Pabon MD; Location: [facility] OR; Service: Electrophysiology; Laterality: Left; FOOT SURGERY Right x5 INCISION AND DRAINAGE FOOT Left INSERT/REPLACE LEADLESS PACEMAKER N/A 11/17/2024 Procedure: Micra Leadless Pacemaker Insert/Replacement; [id number]; Surgeon: Rui Pabon MD; Location: [facility] OR; Service: Electrophysiology; Laterality: N/A; OH PROCEDURE MAZE AFIB OSTECTOMY CALCANEOUS Left 09/10/2024 Procedure: ANKLE PARTIAL CALCANECTOMY; Surgeon: Dallas Camejo MD; Location: [facility] OR; Service: Orthopaedics; Laterality: Left; wOUND PARTIALLY CLOSED SUPERFICIALLY, WOUND VAC PLACED TOTAL KNEE ARTHROPLASTY Left 2015 REVISION SAME YEAR/INFECTION Family History No family history on file. No history of renal disease. Social History Social History Tobacco Use Smoking Status Former Current packs/day: 1.00 Average packs/day: 1 pack/day for 29.1 years (29.1 ttl pk-yrs) Types: Cigarettes Start date: 1976 Quit date: 2003 Smokeless Tobacco Never Social History Substance and Sexual Activity Alcohol Use Yes Alcohol/week: 21.0 standard drinks of alcohol Types: 21 Cans of beer per week Medications Prior to Admission Medications: Medications Prior to Admission Medication Sig Dispense Refill Last Dose acetaminophen (TYLENOL) 325 MG tablet Take 3 tablets (975 mg total) by mouth 4 times daily (every 6hours) as needed for mild pain. 168 tablet 0 amiODARONE (PACERONE) 200 MG tablet Take 1 tablet (200 mg total) by mouth 2 times a day. amLODIPine (NORVASC) 10 MG tablet Take 1 tablet (10 mg total) by mouth. amoxicillin (AMOXIL) 500 MG capsule Take 1 capsule (500 mg total) by mouth 3 (three) times a day. For 1 week for DENTAL procedures amoxicillin (AMOXIL) 500 MG tablet Take 2 tablets (1,000 mg total) by mouth 2 (two) times a day. For 14 days apixaban (ELIQUIS) 5 MG tablet Take 1 tablet (5 mg total) by mouth 2 times a day. ascorbic acid (VITAMIN C) 500 MG tablet Take 1 tablet (500 mg total) by mouth daily. 14 tablet 0 bumetanide (BUMEX) 2 MG tablet Take 1 tablet (2 mg total) by mouth daily. Cholecalciferol (Vitamin D-3) 125 MCG (5000 UT) Tab Take 2 tablets by mouth every morning. ciprofloxacin (CIPRO) 500 MG tablet Take 1 tablet (500 mg total) by mouth 2 (two) times a day. Continuous Glucose Sensor (Trova[employer] Wallace 3 Sensor) [facility] INJECT 1 DEVICE INTO THE SKIN EVERY 14 DAYS cyanocobalamin 2500 MCG Tab Take 1 tablet (2,500 mcg total) by mouth daily. donepezil (ARICEPT) 10 MG tablet Take 1 tablet (10 mg total) by mouth every morning. glipiZIDE (GLUCOTROL) 2.5 mg tablet Take 1 tablet (2.5 mg total) by mouth 2 times a day. Jardiance 25 MG tablet Take 1 tablet (25 mg total) by mouth daily. Magnesium 250 MG Tab Take 250 mg by mouth every morning. melatonin 10 MG Tab tablet Take 5 mg by mouth nightly. metFORMIN (GLUCOPHAGE) 1000 MG tablet Take 0.5 tablets (500 mg total) by mouth every morning with breakfast. metFORMIN (GLUCOPHAGE) 500 MG tablet Take 1 tablet (500 mg total) by mouth every morning with breakfast. methocarbamol (ROBAXIN) 500 MG tablet Take 1 tablet (500 mg total) by mouth 4 (four) times a day asneeded for muscle spasms. 20 tablet 0 metoPROLOL TARTRATE (LOPRESSOR) 50 MG tablet Take 1 tablet (50 mg total) by mouth 2 times a day. nicotine (NICODERM CQ) 7 MG/24HR patch Place 1 patch on the skin daily. oxyCODONE (ROXICODONE) 5 MG immediate release tablet Take 1-2 tablets (5-10 mg total) by mouth every 4 (four) hours as needed for severe pain. Max Daily Amount: 60 mg 42 tablet 0 PANTOprazole (PROTONIX) 40 MG EC tablet Take 1 tablet (40 mg total) by mouth daily. polyethylene glycol (miraLAx) 17 g packet Take 1 packet (17 g total) by mouth daily. 10 packet 0 pravastatin (PRAVACHOL) 20 MG tablet Take 1 tablet (20 mg total) by mouth daily. pregabalin (LYRICA) 150 MG capsule Take 1 capsule (150 mg total) by mouth 2 times a day. senna (SENOKOT) 8.6 MG Tab tablet Take 2 tablets by mouth daily as needed for constipation. 14 tablet 0 sulfamethoxazole-trimethoprim (BACTRIM DS,SEPTRA DS) 800-160 MG per tablet Take 1 tablet by mouth 2(two) times a day. 28 tablet 0 Medication/MAR Report: Medications Scheduled Medication Ordered Dose/Rate, Route, Frequency Last Action acetaminophen (TYLENOL) tablet 975 mg 975 mg, PO, Q6H JUDSON Given, 975 mg at 11/18 2115 amiODARONE (PACERONE) tablet 200 mg 200 mg, PO, Daily Given, 200 mg at 11/18 103 amLODIPine (NORVASC) tablet 10 mg 10 mg, PO, Daily Given, 10 mg at 11/18 102 bumetanide (BUMEX) tablet 2 mg 2 mg, PO, Daily Ordered buPROPion (WELLBUTRIN SR) 12 hr tablet 150 mg 150 mg, PO, BID Given, 150 mg at 11/18 2117 calcium citrate (CALCITRATE) tablet 950 mg 950 mg, PO, BID with meals Given, 950 mg at 11/18 1734 cefTRIAXone (ROCEPHIN) 2 g in sodium chloride-MBP (NS) 100 mL IVPB-MBP 2 g, IV, Q24H New Bag, 2 g at 11/18 1235 chlorhexidine gluconate 2 % wipes - urethral catheter CHG application No Dose/Rate, TOP, Daily Given, No Dose/Rate at 11/18 1031 cholecalciferol tablet 2,000 Units 2,000 Units, PO, Daily Given, 2,000 Units at 11/18 1103 cyanocobalamin (VITAMIN B-12) tablet 2,500 mcg 2,500 mcg, PO, Daily Given, 2,500 mcg at 11/18 1027 DAPTOmycin (CUBICIN) 975 mg in sodium chloride (NS) 0.9 % 50 mL IVPB 10 mg/kg, IV, Q24H New Bag, 975 mg at 11/18 1426 donepezil (ARICEPT) tablet 10 mg 10 mg, PO, QAM Given, 10 mg at 11/18 1105 [Provider Held] empagliflozin (JARDIANCE) 25 mg On hold since Fri11/04/2024 at 1503 until manually unheld; held by Gayle Rey Reason: Pre-procedure On hold since Fri11/04/2024 at 1503 until manually unheld (Needs Review) Hold reason: Pre-procedure 25 mg, PO, Daily Given, 25 mg at 11/04 0756 folic acid (FOLVITE) tablet 1 mg 1 mg, PO, Daily Given, 1 mg at 11/18 1028 [Provider Held] glimepiride (AMARYL) tablet 2 mg On hold since Fri11/04/2024 at 1503 until manually unheld; held by Juaquin Kern MDHold Reason: Pre-procedure On hold since Fri11/04/2024 at 1503 until manually unheld (Needs Review) Hold reason: Pre-procedure 2 mg, PO, Daily with breakfast Given, 2 mg at 11/04 0757 [Provider Held] heparin (porcine) 5000 unit/mL injection 5,000 Units On hold since Fri11/16/2024 [id number] until manually unheld; held by Herberth Whitmore Reason: Pre-procedure On hold since Fri11/16/2024 at 2000 until manually unheld (Needs Review) Hold reason: Pre-procedure 5,000 Units, SC, Q8H JUDSON Given, 5,000 Units at 11/16 1714 insulin glargine (LANtus/SEMGLEE) 100 units/mL injection 10 Units 10 Units, SC, Daily Given, 10 Units at 11/18 1032 insulin lispro (HumaLOG/ADMELOG) 100 units/mL injection 1-6 Units 1-6 Units, SC, TID with meals Given, 5 Units at 11/18 173 insulin lispro (HumaLOG/ADMELOG) 100 units/mL injection 3 Units 3 Units, SC, TID with meals Given, 3 Units at 11/18 1733 methocarbamol (ROBAXIN) tablet 1,000 mg 1,000 mg, PO, 4x Daily Given, 1,000 mg at 11/18 2117 metoPROLOL TARTRATE (LOPRESSOR) tablet 50 mg 50 mg, PO, BID Given, 50 mg at 11/18 2118 multivitamin with minerals tablet 1 tablet 1 tablet, PO, Daily Given, 1 tablet at 11/18 1027 nicotine (NICODERM CQ) 21 MG/24HR patch 1 patch 1 patch, TD, Daily Patch Applied, 1 patch at 11/18 103 PANTOprazole (PROTONIX) EC tablet 40 mg 40 mg, PO, Daily Given, 40 mg at 11/18 102 polyethylene glycol (miraLAx) packet 17 g 17 g, PO, Daily Given, 17 g at 11/18 1040 [Provider Held] pravastatin (PRAVACHOL) tablet 20 mg On hold since Fri11/03/2024 at 0850 until manually unheld; held by Gayle Rose Reason: Other - Comment requiredHold Comments: While on IV daptomycin On hold since Fri11/03/2024 at 0850 until manually unheld (Needs Review) Hold reason: Other - Comment required, Hold comment: While on IV daptomycin 20 mg, PO, Daily Ordered pregabalin (LYRICA) capsule 100 mg 100 mg, PO, TID Given, 100 mg at 11/18 2116 senna-docusate (SENNA-S) 8.6-50 MG tablet 2 tablet 2 tablet, PO, BID Given, 2 tablet at 11/18 2118 thiamine mononitrate (VITAMIN B-1) tablet 200 mg 200 mg, PO, Daily Given, 200 mg at 11/18 1031 PRN Medication Ordered Dose/Rate, Route, Frequency Last Action acetaminophen (TYLENOL) tablet 975 mg 975 mg, PO, Q6H PRN Ordered benzocaine-menthol (CHLORASEPTIC) 6-10 MG lozenge 1 lozenge 1 lozenge, MT, Q2H PRN Ordered bisacodyl (DULCOLAX) suppository 10 mg 10 mg, RE, Daily PRN Ordered calcium carbonate (TUMS) chewable tablet 1,000 mg 1,000 mg, PO, Q12H PRN Ordered carboxymethylcellulose (REFRESH PLUS) 0.5 % ophthalmic solution 2 drop 2 drop, Each Eye, Q2H PRN Ordered HYDROmorphone (DILAUDID) tablet 2 mg (Or Linked Group #1) 2 mg, PO, Q3H PRN See Alternative, 11/19 0450 HYDROmorphone (DILAUDID) tablet 4 mg (Or Linked Group #1) 4 mg, PO, Q3H PRN Given, 4 mg at 11/19 0450 ipratropium-albuterol (DUONEB) 0.5-2.5 mg/3 mL nebulizer solution 3 mL 3 mL, NEBULIZATION, Q2H PRN Given, 3 mL at 11/07 1025 lactulose (ENULOSE) 10 gm/15 mL solution 20 g 20 g, PO, Q4H PRN Ordered melatonin tablet 3 mg 3 mg, PO, Nightly PRN Given, 3 mg at 11/16 2215 naloxone (NARCAN) 0.4 mg/mL injection 0.4 mg 0.4 mg, IV, Q5 Min PRN Ordered naloxone (NARCAN) 0.4 mg/mL injection 0.4 mg 0.4 mg, IV, Q5 Min PRN Ordered ondansetron (ZOFRAN) injection 4 mg 4 mg, IV, Q6H PRN Given, 4 mg at 11/17 1639 Allergy Allergies Allergen Reactions Lisinopril Other (See Comments) Dehydration Physical Exam Vitals: 11/19/24 0008 11/19/24 0420 11/19/24 0500 11/19/24 0815 BP: (!) 113/57 139/60 BP Location: Right arm Right arm Patient Position: Lying Lying Pulse: 61 (!) 58 (!) 58 Resp: 18 18 Temp: 96.4 ??F (35.8 ??C) 97 ??F (36.1 ??C) TempSrc: Tympanic Tympanic SpO2: 95% 96% 95% Weight: 99.3 kg (218 lb 14.7 oz) Height: I/O last 3 completed shifts: In: 1326 [P.O.:1200; I.V.:26; IV Piggyback:100] Out: 3550 [Urine:3550] Weight trend: Wt Readings from Last 3 Encounters: 11/19/24 99.3 kg (218 lb 14.7 oz) 09/02/24 104 kg (230 lb) 09/03/24 102 kg (224 lb 3.2 oz) General appearance: Comfortable appearing Lungs: clear to auscultation bilaterally Heart: regular rate and rhythm, S1, S2 normal, no rub Abdomen: soft, non-tender; bowel sounds normal Extremities: Left BKA. Right TMA Edema: None Neurologic: Grossly normal, no asterixis. Relevant data reviewed Recent Labs 11/17/24 0500 11/17/24 0816 11/18/24 0715 11/19/24 0754 EGFR 42* -- 42* 42* CREAT 1.8* -- 1.8* 1.8* BUN 54* -- 45* 43* K 3.7 -- 3.6 3.7 CO2 30 -- 29 30 ANIONGAP 11 -- 11 10 NA 128* -- 129* 132* CALCIUM 9.4 -- 8.9 9.1 PHOS -- 3.5 -- -- Recent Labs 11/17/24 0500 11/18/24 0715 11/19/24 0754 WBC 11.2* 12.3* 10.1 HGB 8.2* 8.1* 8.2* HCT 25.0* 25.5* 26.6* PLT 373 349 354 Lab Results Component Value Date PROBNP 429 (H) 11/15/2024 PROBNP 994 (H) 11/13/2024 Lab Results Component Value Date ALBUMIN 2.9 (L) 11/17/2024 ALBUMIN 2.6 (L) 11/11/2024 No results found for: TACROLIMUS No results found for: [id number] , TOTVOL , CRCLR , PERIOD No results found for: IRON , TIBC , IRONSAT , UIBC Lab Results Component Value Date BILITOT 0.2 11/17/2024 AST 24 11/17/2024 Serum Cr Trend Reviewed: Imaging Studies CT with Contrast 11/08/24 IMPRESSION: 1. No acute intracranial process or abnormal intracranial enhancement. If there is a high clinical index of suspicion for acute embolic infarction, and it would alter patient management, consider MR brain, if possible. 2. Mild microvascular white matter ischemic changes. MRI 11/12/24 FINDINGS: Status post AVM planned. Stable cardiac size. The airspace disease in the bilateral upper lobes is mildly improved. No pneumothorax or pleural effusion. IMPRESSION: Mildly improving bilateral upper lobe airspace disease Sign: Anmol Papamarkakis, MD 11/19/2024 10:09 AM [facility] Nephrology Office [phone] * Gilda May RN - 11/12/2024 3:31 PM EST [facility] Consult Visit Date: 11/12/2024 Patient Name: Blas Genao Date of : 1960 Reason for Consult: initial Wound Team Summary Assessment: Known DFU to R plantar foot, typically followed by wound center/heel padder outpatient near patient's home. Had been using medihoney to area previously. Currently dry intact adhered thick scab, no drainage. Periwound with dry skin but otherwise intact. Area with no fluctuance or pain. As area is dry and stable, recommend maintaining current condition with barrier spray and gauze dressing daily. Patient to follow up with his regular provider once d/c'd. Wound Team Plan: no re-eval necessary, re-consult if needed Recommendations: R plantar foot: cleanse with NS, apply barrier spray and gauze dressing daily and PRN. Keep area clean and dry. Wound History: 63 yr old male admitted for OM of L heel. Wound consult placed for R foot ulcer. Pertinent Labs: Albumin Date Value Ref Range Status 11/11/2024 2.6 (L) 3.4 - 4.8 g/dL Final Transferrin Date Value Ref Range Status 11/02/2024 178 (L) 200 - 360 mg/dL Final Prealbumin Date Value Ref Range Status 11/02/2024 7 (L) 20 - 40 mg/dL Final Wound Assessment: Base dry;scab 11/12/24 1500 Eleanor Wound Area intact;dry 11/12/24 1500 Edges irregular 11/12/24 1500 Length (cm) 2 cm 11/12/24 1500 Width (cm) 1 cm 11/12/24 1500 Depth (cm) 0.1 cm 11/12/24 1500 Wound Surface Area (cm^2) 2 cm^2 11/12/24 1500 Volume (cm^3) 0.2 cm^3 11/12/24 1500 Drainage Amount none 11/12/24 1500 Wound Cleaning cleansed with;normal saline 11/12/24 1500 Wound Interventions barrier applied 11/12/24 1500 Dressing gauze 11/12/24 1500 Number of days: 9 Gilda May RADIAGRAPH OPERATOR, CWCN 11/12/2024 3:31 PM * Janice Hazel MD - 11/11/2024 7:03 AM ESTAssociated Order(s): IP CONSULT TO PHYSICAL MEDICINE PM&R Initial Consult Date of Consult: 11/11/2024 Patient's Primary Care Physician: Lee Fabian MD Physician Requesting Consult: Dallas Camejo MD Reason for Consultation: BKA rehab recs Name: Blas Genao Age: 63 y.o. Sex: male Principal Problem: Acute osteomyelitis of left calcaneus (HCC) (POA: Yes) Active Problems: HTN (hypertension) (POA: Yes) A-fib (HCC) (POA: Yes) PAD (peripheral artery disease) (POA: Yes) MERVIN on CPAP (POA: Yes) Diabetes (HCC) (POA: Yes) Stage 3a chronic kidney disease (CKD) (HCC) (POA: Yes) Hyperlipidemia (POA: Yes) Smoker (POA: Yes) Chronic diastolic congestive heart failure (HCC) (POA: Yes) Osteomyelitis (HCC) (POA: Yes) CKD (chronic kidney disease) (Chronic) (POA: Yes) Bacteremia (POA: Unknown) Presence of permanent cardiac pacemaker (POA: Unknown) Mitral valve vegetation (POA: Unknown) Mitral valve regurgitation (POA: Unknown) Resolved Problems: Assessment & Plan Rehab Diagnosis: L 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 Assessment: Blas Genao is 63 year old man with pertinent past surgical history of calcaneal ostectomy 08/2024, and past medical history of aflutter/afib s/p watchman procedure, AVB s/p PPM, chronic diastolic CHF, HTH, HLD, MERVIN on CPAP, CKDIII, PAD/PVD who presented as a direct admit for left 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 with wound vac placement. Patient underwent L BKA with Dr. Camejo on 11/05, with intraoperative cultures growing MRSA, Enterococcus faecalis, VRE, corynebacterium species andgram negative bacilli. Hospital course complicated by bacteremia and concern for mitral valve/pacerlead endocarditis. EP consulted for concern for infected PPM, further plan based on results of TATIANNA. Course further complicated by hypoxic respiratory failure requiring CPAP. Now primary team requesting PM&R consult to assess rehab needs s/p BKA. He is NWB to LLE. Rehabilitation disposition recommendations: Pending medical stability (TATIANNA, possible pacemaker removal). Patient would be a good candidate for acute rehab. Plan: - PT/OT Active range of motion bilateral upper and lower extremities at least 3 times daily. Encourage participation in self-care. Recommend starting with OOB to chair BID to promote core/sitting balance, endurance - Contractures: Avoid hip flexion contractures by allowing patient to lie prone q3-4h for 20-30 minutes. If cannot lie prone. Can lie on side if not able to lie prone. Additionally, do not prop up left leg with pillows and do not put pillows in between thighs to avoid hip flexion contractures and abductor contractures s/p his BKA. Discussed this with the patient as well. - Pain: - Continue pregabalin 150 mg 3 times daily, creatinine clearance 53. Uptrending creatinine - 4 daysago was 1.5, now 2.0. Would not increase Lyrica further. If increasing creatinine, would recommend decreasing Lyrica to 100 mg TID. - Consider switching Tylenol from 975 mg every 6 hours scheduled to Tylenol 975 mg 3 times daily soas not to interrupt sleep - Monitor for phantom limb pain - Continue Dilaudid 2 mg / 4 mg every 3 hours as needed - Sleep wake cycle: Encourage good sleep hygiene as sleep deprivation can lower pain threshold and increase sensitivityto pain Reorient frequently. Minimize nighttime disruptions as medically appropriate. Maintain regular [id number] including appropriate lighting in the room. Consider melatonin 3 mg nightly PRN - Skin Prophylaxis -The patient should be maintained on a Pressure Injury Prophylaxis Protocol, including being turnedevery two hours and provided with bilateral spenco boots. Nutrition should be optimized; prealbumin& albumin monitored periodically. Patient/family training required. -Wound consult placed due to pressure ulcer on plantar aspect of R foot. - Bowel: Mar reviewed. Last BM 11/10. Currently on senna twice daily, with decrease senna to 2 tablets daily-either at noon or at nighttime. - Bladder: Consider doing bladder scan PRN and PVR q6 hrs with IC for volumes >100cc. If IC >500cc then increase frequency to q4 hrs. If PVR x 3 less than 100cc then DC around the clock PVRs. - Education: Patient/caregiver education needed/provided - Follow up with PM&R as outpatient. - DVT ppx: per MAR Thank you for this consult. We will continue to follow. Please TT HH PM&R Consults (Physical Medicine and Rehabilitation) if any questions. Subjective Chief Complaint L leg pain s/p BKA History of Present Illness Blas Genao is 63 year old man with pertinent past surgical history of calcaneal ostectomy 08/2024, right TMA, and past medical history of aflutter/afib s/p watchman procedure, AVB s/p PPM, chronicdiastolic CHF, HTH, HLD, MERVIN on CPAP, CKDIII, PAD/PVD who presented as a direct admit for left BKA s econdary to calcaneal osteomyelitis with wound vac placement. Patient underwent L BKA with Dr. Camejo on 11/05, with intraoperative cultures growing MRSA, Enterococcus faecalis, VRE, corynebacterium species and gram negative bacilli. Hospital course complicated by bacteremia and concern for mitral valve/pacer lead endocarditis and acute hypoxic respiratory failure, requiring CPAP. He states that when they had to examine his left BKA this morning and take off the sock , it hurt tremendously. Denies headache, numbness, urinary/bowel issues. He states that he is aware that he has a wound on the right bottom of his foot. He states that he does have a prosthesis for his right shoe at home for his right transmetatarsal amputation. PLOF and home environment: Pt lives alone in a single floor home. There is a ramp entry and it is a 1 level living home. He lives alone w/ his 3 pet cats, and he is mod independent with DME - primarily mobilizes with a knee scooter & uses DME in the bathroom. Rehab assessments PT 11/09 Summary: Patient seen for PT follow up. Performed bed mobility, transfers and sidesteps this session. Required Ax2 for mobility. Adjusted nutmegger for optimal fit and protection of residual limb. Per orders patient is to have coil winder repair on AAT, noted that residual limb was wrapped with srinivas wrap vs coil winder repair. Reached out to orthopedic PA in regards to coil winder repair for patient. Patient is motivated to participate in therapy session and is making good progress towards IP PT goals. Presents below functional baseline with impairments in functional strength, balance and activity tolerance. Patient is an excellent rehab candidate with good social support from family. Anticipate patient will be able to tolerate three hours of intensive therapy in acute rehab setting when medically cleared. If transitioning home would recommend Ax2 for transfers, W/C, EMS transport and home PT. Current [facility] Basic Mobility Score: 14 OT 11/09 Summary: Blas was seen for OT follow up session today, now on step down level of care. All activitycompleted on 6 L O2 via NC with O2 sats fluctuating from 94 to 87% given Vcs for good use of PLBingboth at rest and with activity. He was able to transition to EOB with Ax1 however required Ax2 for sit to stands and side stepping along EOB x2 prior to completion of facial grooming and oral care sitting EOB. Blas was pleasant, cooperative and highly motivated to participate in session however remains well below baseline functional level 2/2 deficits with strength, balance and activity tolerance. Current [facility] Daily Activity Score: 15 Outcomes score [facility] The Activity Measure for Post-Acute Care (AM-PAC) Basic Mobility Inpatient Short Form (6-clicks) zakiay standardized measure used to quantify functional deficits in mobility. The total score of the measure ranges from 6-24. A higher score indicates a higher level of independence with functional mobility. Review of Systems As in HPI Objective Past Medical History: Diagnosis Date A-fib (HCC) Acute osteomyelitis (HCC) Atrial flutter (HCC) Cardiac pacemaker 2016 Carotid atherosclerosis Charcot's joint of right foot 2015 Chronic sciatica Complete AV block (HCC) Diabetes mellitus (HCC) TYPE II Diabetic foot ulcer (HCC) ED (erectile dysfunction) Edema ESBL (extended spectrum beta-lactamase) producing bacteria infection GERD (gastroesophageal reflux disease) GI bleed Hyperlipidemia Hypertension Leukocytosis Metabolic bone disease Multiple drug resistant organism (MDRO) culture positive Non healing left heel wound Obesity Osteoarthrosis Osteomyelitis of both feet (HCC) PAD (peripheral artery disease) Primary osteoarthritis of knee Proteinuria Renal osteodystrophy Restless legs syndrome (RLS) no meds, lyrica helps Septic joint of left knee joint (HCC) Sleep apnea BiPap Smoker Stage 3a chronic kidney disease (CKD) (HCC) Past Surgical History: Procedure Laterality Date AMPUTATION Right 2017 TMA AMPUTATION BELOW KNEE Left 11/05/2024 Procedure: LEFT BELOW KNEE AMPUTATION; Surgeon: Dallas Camejo MD; Location: [facility] OR; Service: Orthopaedics; Laterality: Left; AORTOGRAM- ABDOMINAL Left 09/15/2024 Procedure: LEFT LOWER EXTREMITY ANGIOGRAM; Surgeon: Delbert Mcintosh MD; Location: Main OR; Service: Peripheral Vascular; Laterality: Left; BARIATRIC SURGERY 2018 CARDIAC ELECTROPHYSIOLOGY STUDY AND ABLATION x5 CARDIAC PACEMAKER PLACEMENT 2016 CARDIAC SURGERY 2020 watchman device CARDIOVERSION 07/2024 CC PERIPHERAL ANGIOGRAPHY Left 07/2024 LE CHANGE DRESSING WOUND VAC Left 09/10/2024 Procedure: APPLICATION OF WOUND VAC; Surgeon: Dallas Camejo MD; Location: [facility] OR; Service: Orthopaedics; Laterality: Left; FOOT SURGERY Right x5 INCISION AND DRAINAGE FOOT Left OH PROCEDURE MAZE AFIB OSTECTOMY CALCANEOUS Left 09/10/2024 Procedure: ANKLE PARTIAL CALCANECTOMY; Surgeon: Dallas Camejo MD; Location: [facility]; Service: Orthopaedics; Laterality: Left; wOUND PARTIALLY CLOSED SUPERFICIALLY, WOUND VAC PLACED TOTAL KNEE ARTHROPLASTY Left 2015 REVISION SAME YEAR/INFECTION No family history on file. Social History Tobacco Use Smoking status: Former Current packs/day: 1.00 Average packs/day: 1 pack/day for 29.1 years (29.1 ttl pk-yrs) Types: Cigarettes Start date: 1976 Quit date: 2003 Smokeless tobacco: Never Substance Use Topics Alcohol use: Yes Alcohol/week: 21.0 standard drinks of alcohol Types: 21 Cans of beer per week Drug use: Never Medications Prior to Admission Medications: Medications Prior to Admission Medication Sig Dispense Refill Last Dose acetaminophen (TYLENOL) 325 MG tablet Take 3 tablets (975 mg total) by mouth 4 times daily (every 6hours) as needed for mild pain. 168 tablet 0 amiODARONE (PACERONE) 200 MG tablet Take 1 tablet (200 mg total) by mouth 2 times a day. amLODIPine (NORVASC) 10 MG tablet Take 1 tablet (10 mg total) by mouth. amoxicillin (AMOXIL) 500 MG capsule Take 1 capsule (500 mg total) by mouth 3 (three) times a day. For 1 week for DENTAL procedures amoxicillin (AMOXIL) 500 MG tablet Take 2 tablets (1,000 mg total) by mouth 2 (two) times a day. For 14 days apixaban (ELIQUIS) 5 MG tablet Take 1 tablet (5 mg total) by mouth 2 times a day. ascorbic acid (VITAMIN C) 500 MG tablet Take 1 tablet (500 mg total) by mouth daily. 14 tablet 0 bumetanide (BUMEX) 2 MG tablet Take 1 tablet (2 mg total) by mouth daily. Cholecalciferol (Vitamin D-3) 125 MCG (5000 UT) Tab Take 2 tablets by mouth every morning. ciprofloxacin (CIPRO) 500 MG tablet Take 1 tablet (500 mg total) by mouth 2 (two) times a day. Continuous Glucose Sensor (SSP EuropeStyle Wallace 3 Sensor) [facility] INJECT 1 DEVICE INTO THE SKIN EVERY 14 DAYS cyanocobalamin 2500 MCG Tab Take 1 tablet (2,500 mcg total) by mouth daily. donepezil (ARICEPT) 10 MG tablet Take 1 tablet (10 mg total) by mouth every morning. glipiZIDE (GLUCOTROL) 2.5 mg tablet Take 1 tablet (2.5 mg total) by mouth 2 times a day. Jardiance 25 MG tablet Take 1 tablet (25 mg total) by mouth daily. Magnesium 250 MG Tab Take 250 mg by mouth every morning. melatonin 10 MG Tab tablet Take 5 mg by mouth nightly. metFORMIN (GLUCOPHAGE) 1000 MG tablet Take 0.5 tablets (500 mg total) by mouth every morning with breakfast. metFORMIN (GLUCOPHAGE) 500 MG tablet Take 1 tablet (500 mg total) by mouth every morning with breakfast. methocarbamol (ROBAXIN) 500 MG tablet Take 1 tablet (500 mg total) by mouth 4 (four) times a day asneeded for muscle spasms. 20 tablet 0 metoPROLOL TARTRATE (LOPRESSOR) 50 MG tablet Take 1 tablet (50 mg total) by mouth 2 times a day. nicotine (NICODERM CQ) 7 MG/24HR patch Place 1 patch on the skin daily. oxyCODONE (ROXICODONE) 5 MG immediate release tablet Take 1-2 tablets (5-10 mg total) by mouth every 4 (four) hours as needed for severe pain. Max Daily Amount: 60 mg 42 tablet 0 PANTOprazole (PROTONIX) 40 MG EC tablet Take 1 tablet (40 mg total) by mouth daily. polyethylene glycol (miraLAx) 17 g packet Take 1 packet (17 g total) by mouth daily. 10 packet 0 pravastatin (PRAVACHOL) 20 MG tablet Take 1 tablet (20 mg total) by mouth daily. pregabalin (LYRICA) 150 MG capsule Take 1 capsule (150 mg total) by mouth 2 times a day. senna (SENOKOT) 8.6 MG Tab tablet Take 2 tablets by mouth daily as needed for constipation. 14 tablet 0 sulfamethoxazole-trimethoprim (BACTRIM DS,SEPTRA DS) 800-160 MG per tablet Take 1 tablet by mouth 2(two) times a day. 28 tablet 0 Medication/MAR Report: Medications Scheduled Medication Ordered Dose/Rate, Route, Frequency Last Action acetaminophen (TYLENOL) tablet 975 mg 975 mg, PO, Q6H JUDSON Given, 975 mg at 11/11 238 amiODARONE (PACERONE) tablet 200 mg 200 mg, PO, Daily Given, 200 mg at 11/10 914 amLODIPine (NORVASC) tablet 10 mg 10 mg, PO, Daily Given, 10 mg at 11/10 908 aspirin enteric coated (ECOTRIN LOW STRENGTH) tablet 81 mg 81 mg, PO, Q12H JUDSON Given, 81 mg at 11/10 913 buPROPion (WELLBUTRIN SR) 12 hr tablet 150 mg 150 mg, PO, BID Given, 150 mg at 11/10 2036 calcium citrate (CALCITRATE) tablet 950 mg 950 mg, PO, BID with meals Given, 950 mg at 11/10 1519 ceftaroline (TEFLARO) 600 mg in sodium chloride (NS) 0.9 % 250 mL IVPB-WTD 600 mg, IV, Q8H Given, 600 mg at 11/11 0250 chlorhexidine gluconate 2 % wipes - central line CHG application No Dose/Rate, TOP, Daily Given, 1 each at 11/10 922 cholecalciferol tablet 2,000 Units 2,000 Units, PO, Daily Given, 2,000 Units at 11/10 912 cyanocobalamin (VITAMIN B-12) tablet 2,500 mcg 2,500 mcg, PO, Daily Given, 2,500 mcg at 11/10 911 DAPTOmycin (CUBICIN) 975 mg in sodium chloride (NS) 0.9 % 50 mL IVPB 10 mg/kg, IV, Q24H Stopped, 11/10 161 donepezil (ARICEPT) tablet 10 mg 10 mg, PO, QAM Given, 10 mg at 11/10 0903 [Provider Held] empagliflozin (JARDIANCE) 25 mg On hold since [facility] 11/04/2024 at 1503 until manually unheld; held by Juaquin Kern MDHold Reason: Pre-procedure On hold since Fri11/04/2024 at 1503 until manually unheld (Needs Review) Hold reason: Pre-procedure 25 mg, PO, Daily Given, 25 mg at 11/04 0756 folic acid (FOLVITE) tablet 1 mg 1 mg, PO, Daily Given, 1 mg at 11/10 0913 [Provider Held] glimepiride (AMARYL) tablet 2 mg On hold since [facility] 11/04/2024 at 1503 until manually unheld; held by Gayle Rey Reason: Pre-procedure On hold since Fri11/04/2024 at 1503 until manually unheld (Needs Review) Hold reason: Pre-procedure 2 mg, PO, Daily with breakfast Given, 2 mg at 11/04 0757 heparin (porcine) 5000 unit/mL injection 5,000 Units 5,000 Units, SC, Q8H JUDSON Given, 5,000 Units at 11/11 0625 insulin lispro (HumaLOG/ADMELOG) 100 units/mL injection 1-11 Units 1-11 Units, SC, TID with meals Given, 5 Units at 11/10 1659 insulin lispro (HumaLOG/ADMELOG) 100 units/mL injection 1-4 Units 1-4 Units, SC, NIGHTLY & 2AM Given, 1 Units at 11/10 2037 [Provider Held] insulin lispro (HumaLOG/ADMELOG) 100 units/mL injection 5 Units On hold since yesterday at 0752 until manually unheld; held by LIOR Mas Reason: NPO On hold since yesterday at 0752 until manually unheld (Needs Review) Hold reason: NPO 5 Units, SC, TID with meals Given, 5 Units at 11/09 1313 [Provider Held] metFORMIN (GLUCOPHAGE) tablet 500 mg On hold since Fri11/04/2024 at 1503 until manually unheld; held by Juaquin Kern MDHold Reason: Pre-procedure On hold since Fri11/04/2024 at 1503 until manually unheld (Needs Review) Hold reason: Pre-procedure 500 mg, PO, Daily with breakfast Given, 500 mg at 11/04 0756 methocarbamol (ROBAXIN) tablet 1,000 mg 1,000 mg, PO, 4x Daily Given, 1,000 mg at 11/10 2037 metoPROLOL TARTRATE (LOPRESSOR) tablet 50 mg 50 mg, PO, BID Given, 50 mg at 11/10 2036 multivitamin with minerals tablet 1 tablet 1 tablet, PO, Daily Given, 1 tablet at 11/10 914 nicotine (NICODERM CQ) 21 MG/24HR patch 1 patch 1 patch, TD, Daily Patch Applied, 1 patch at 11/10 918 PANTOprazole (PROTONIX) EC tablet 40 mg 40 mg, PO, Daily Given, 40 mg at 11/10 911 [Provider Held] pravastatin (PRAVACHOL) tablet 20 mg On hold since Fri11/03/2024 at 0850 until manually unheld; held by Ena Mtz MDHold Reason: Other - Comment requiredHold Comments: While on IV daptomycin On hold since Fri11/03/2024 at 0850 until manually unheld (Needs Review) Hold reason: Other - Comment required, Hold comment: While on IV daptomycin 20 mg, PO, Daily Ordered pregabalin (LYRICA) capsule 150 mg 150 mg, PO, TID Given, 150 mg at 11/10 2036 senna-docusate (SENNA-S) 8.6-50 MG tablet 2 tablet 2 tablet, PO, BID Given, 2 tablet at 11/10 2037 thiamine mononitrate (VITAMIN B-1) tablet 200 mg 200 mg, PO, Daily Given, 200 mg at 11/10 904 Continuous Medication Ordered Dose/Rate, Route, Frequency Last Action bumetanide (BUMEX) IV infusion 12.5 mg in 50 mL 1 mg/hr, IV, Continuous Rate/Dose Verify, 1 mg/hr at 11/11 0400 PRN Medication Ordered Dose/Rate, Route, Frequency Last Action bisacodyl (DULCOLAX) EC tablet 5 mg 5 mg, PO, Daily PRN Ordered bisacodyl (DULCOLAX) suppository 10 mg 10 mg, RE, Daily PRN Ordered calcium carbonate (TUMS) chewable tablet 1,000 mg 1,000 mg, PO, Q12H PRN Ordered dextrose 50 % solution 12.5 g (Or Linked Group #1) 12.5 g, IV, Q15 Min PRN Ordered dextrose 50 % solution 25 g (Or Linked Group #1) 25 g, IV, Q15 Min PRN Ordered glucagon (GLUCAGEN) injection 1 mg (Or Linked Group #1) 1 mg, IM, Daily PRN Ordered glucose (GLUTOSE 15) 40 % oral gel 37.5 g (Or Linked Group #1) 1 Tube, PO, Q15 Min PRN Ordered glucose (GLUTOSE 15) 40 % oral gel 75 g (Or Linked Group #1) 2 Tube, PO, Q15 Min PRN Ordered HYDROmorphone (DILAUDID) tablet 2 mg 2 mg, PO, Q3H PRN Given, 2 mg at 11/11 0634 HYDROmorphone (DILAUDID) tablet 4 mg 4 mg, PO, Q3H PRN Given, 4 mg at 11/09 1328 ipratropium-albuterol (DUONEB) 0.5-2.5 mg/3 mL nebulizer solution 3 mL 3 mL, NEBULIZATION, Q2H PRN Given, 3 mL at 11/07 1025 lactulose (ENULOSE) 10 gm/15 mL solution 20 g 20 g, PO, Q4H PRN Ordered magnesium hydroxide (MILK OF MAGNESIA) 400 mg/5 mL suspension 30 mL 30 mL, PO, Q12H PRN Ordered melatonin tablet 3 mg 3 mg, PO, Nightly PRN Given, 3 mg at 11/08 2203 mineral oil (FLEET OIL) enema 1 enema 1 enema, RE, Daily PRN Ordered naloxone (NARCAN) 0.4 mg/mL injection 0.4 mg 0.4 mg, IV, Q5 Min PRN Ordered ondansetron (ZOFRAN) injection 4 mg 4 mg, IV, Q6H PRN Ordered polyethylene glycol (miraLAx) packet 17 g 17 g, PO, Daily PRN Ordered Allergies Allergen Reactions Lisinopril Other (See Comments) Dehydration Physical Exam Vitals: 11/11/24 0000 11/11/24 0200 11/11/24 0400 11/11/24 0600 BP: 137/67 137/64 134/63 (!) 151/70 BP Location: Left arm Left arm Left arm Left arm Patient Position: Lying Lying Lying Lying Pulse: 60 60 60 62 Resp: 20 (!) 23 (!) 28 (!) 23 Temp: 96.6 ??F (35.9 ??C) 96.6 ??F (35.9 ??C) TempSrc: Tympanic Tympanic SpO2: 94% 95% 94% 93% Weight: Height: Intake/Output Summary (Last 24 hours) at 11/11/2024 0703 Last data filed at 11/11/2024 0600 Gross per 24 hour Intake 1273 ml Output 8575 ml Net -7302 ml General: Not in acute distress, sitting up in bed, on 4 L nasal cannula HEENT: Normocephalic, atraumatic, anicteric sclera, moist mucous membranes Cardiac: Appears well perfused Pulmonary: Normal work of breathing, on nasal cannula Abdomen: soft, nondistended, nontender Extremities: Right metatarsal amputation. Left BKA with ampushield and stump coil winder repair Skin: No skin breakdown to exposed skin Neurologic: Alert. Speech fluent without dysarthria. Reflexes: No ankle clonus, negative Hickey's MMT: Right Left Right Left Shoulder Abductors 5 5 Hip Flexors 5 4+ Elbow Flexors 5 5 Hip Abductors Elbow Extensors 5 5 Knee Extensors 5 Wrist Extensors 5 5 Knee Flexors Finger Flexors 5 5 Dorsiflexors 5 FDI 5 5 Plantarflexors 5 Relevant data reviewed: Notable labs are: White Blood Cell Count Date Value Ref Range Status 11/11/2024 13.2 (H) 4.0 - 11.0 Thou/uL Final Hemoglobin Date Value Ref Range Status 11/11/2024 8.2 (L) 13.0 - 17.7 g/dL Final Hematocrit Date Value Ref Range Status 11/11/2024 26.1 (L) 39.0 - 54.0 % Final Platelet Count Date Value Ref Range Status 11/11/2024 460 (H) 150 - 450 Thou/uL Final Lab Results Component Value Date NA 137 11/11/2024 K 3.8 11/11/2024 CL 99 11/11/2024 CO2 27 11/11/2024 CO2 22 11/07/2024 BUN 56 (H) 11/11/2024 CREAT 2.0 (H) 11/11/2024 GLUC 202 (H) 11/11/2024 GLUC 151 (H) 11/11/2024 GLUC 119 (H) 09/10/2024 Lab Results Component Value Date AST 24 11/11/2024 ALT 14 11/11/2024 ALKPHOS 207 (H) 11/11/2024 BILITOT 0.2 11/11/2024 BILIDIR 0.1 11/11/2024 ALBUMIN 2.6 (L) 11/11/2024 PROT 6.4 11/11/2024 Lab Results Component Value Date PHOS 4.7 (H) 11/11/2024 Assessment/Recommendations at top of note. Sign: Janice Hazel MD 11/11/2024 7:[address] Red. Janice Hazel MD Physical Medicine & Rehabilitation, PGY-2 [facility] Available on [employer] secure chat Associated attestation - Lucho Red DO - 11/11/2024 1:44 PM EST I have personally interviewed and examined the patient and reviewed the residents note. I agree with the history, exam, assessment and plan as detailed in the Resident/Fellow's note with the following additions/exceptions/observations made directly to the note below. Anticipate acute rehabilitation pending medical stability. Pending cardiac management. If change infunctional status, can be reevaluated for postacute recommendations. Consider transitioning from dilaudid to oxycodone and use dilaudid for wound vac changes. * Ana Huang, RD - 11/10/2024 3:25 PM ESTAssociated Order(s): IP CONSULT TO NUTRITION SERVICES [facility] Nutrition Note Visit Type: initial assessment Reason for Dietitian Visit: consult (supplement drinks). Reason for Admission: Acute osteomyelitis of left calcaneus (HCC) Pertinent Medical History: Past Medical History: Diagnosis Date ??? A-fib (HCC) ??? Acute osteomyelitis (HCC) ??? Atrial flutter (HCC) ??? Cardiac pacemaker 2015 ??? Carotid atherosclerosis ??? Charcot's joint of right foot 2014 ??? Chronic sciatica ??? Complete AV block (HCC) ??? Diabetes mellitus (HCC) TYPE II ??? Diabetic foot ulcer (HCC) ??? ED (erectile dysfunction) ??? Edema ??? ESBL (extended spectrum beta-lactamase) producing bacteria infection ??? GERD (gastroesophageal reflux disease) ??? GI bleed ??? Hyperlipidemia ??? Hypertension ??? Leukocytosis ??? Metabolic bone disease ??? Multiple drug resistant organism (MDRO) culture positive ??? Non healing left heel wound ??? Obesity ??? Osteoarthrosis ??? Osteomyelitis of both feet (HCC) ??? PAD (peripheral artery disease) ??? Primary osteoarthritis of knee ??? Proteinuria ??? Renal osteodystrophy ??? Restless legs syndrome (RLS) no meds, lyrica helps ??? Septic joint of left knee joint (HCC) ??? Sleep apnea BiPap ??? Smoker ??? Stage 3a chronic kidney disease (CKD) (HCC) Nutrition Diagnosis: Intake: Inadequate oral intake (protein) related to clinical course as evidenced by on/off NPO status; not meeting estimated needs Diagnosis Status: (new). Interventions/Recommendations: Food & Nutrient Delivery: Adjusted CHO in diet to 75 g CHO/meal to better meet estimated needs. Ordered Glucerna BID and Ensure Max once daily. Follow up for patient preference/intake and adjust prn Recommend daily weights - zero bed prior to weighing Monitor labs, skin integrity Discussed low sodium diet Nutrition Education/Counseling: Learner: patient Readiness: acceptance Method: Explanation Topics: Increased Protein Low Sodium, Oral Nutrition Supplement Use Response: verbalizes understanding Comprehension: Excellent Coordination of Nutrition Care: None at this time. Nutrition Plan for Discharge/Transfer: Low sodium, consistent CHO diet +/- phos restriction according to labs Nutrition Assessment: 63 y/o Male who presented as a direct admit with plans for left BKA 2/2 calcaneal osteomyelitis s/pcalcaneal ostectomy 08/2024 with wound vac placement. He is POD#5 s/p L BKA. His course has been complicated with bacteremia and concern for mitral valve/pacer lead endocarditis. He developed hypoxic respiratory failure requiring CPAP and was admitted to Step Down. He is awaiting TATIANNA for further evaluation of suspected endocarditis. Patient is tolerating meals well and eating 100% when not NPO. He has been on/off NPO several timesover the last few days. He has a good appetite and is looking forward to lunch today. Patient drinks supplements at home and is amenable to receiving this admission. Discussed with patient need to avoid salting food and choosing lower salt options--avoiding canned goods/frozen meals. Patient verbalized understanding. Typical Food & Fluid Intake: Patient reports good appetite and intake lpta. He typically has an egg sandwich for breakfast and a protein shake (like muscle milk), for lunch he has a egg or chicken salad sandwich and a protein drink, and dinner typically is a protein/starch/vegetable. Factors Affecting Nutritional Intake: Food Related Allergies: NKFA Cultural/Ethnic Preferences: None noted/reported. Food Insecurity Concerns: Never true Weight: Weights (last 10 days) Date/Time Weight Scale 11/02/242115 120 kg (264 lb 8 oz) bed Wt Readings from Last 10 Encounters: 11/02/24 120 kg (264 lb 8 oz) 09/02/24 104 kg (230 lb) 09/03/24 102 kg (224 lb 3.2 oz) Suspect increase in weight related to fluid retention/fluid status. Patient reports estimated dry weight of ~104kg/230lb. Nutrition Physical Findings: Physical Appearance: obese, amputee (L BKA) Muscle Wasting: none Adipose Wasting: none Gastrointestinal: (LBM /) Skin: edema (trace generalized edema) Wound Documentation Reviewed: yes Labs: Na 135, BUN 56, Cr 2, Phos 5.6, poc Gluc 124-222, 09/03/24: A1c 8.7 Diagnostics: reviewed Medications: Bumex IV, tums, calcium citrate, vitamin D, vitamin B12, folic acid, SSI, multivit with minerals, PPI, senna, thiamine Estimated Daily Energy and Protein Needs: Energy Needs: 2080 - 2600 Kcals/day (20 - 25 Kcals/kg) [place]: RMR ([place]-St. Jeor Equation): 1920.63 [place]-St. Jeor (Considerations): 5211-2964 kcal (MSJ +1.2-1.3) based on 104 kg (229 lb 4.5 oz) (reported dry weight) Protein Needs: 117 - 141 gm, (1.5 - 1.8g/kg) based on 78.1 kg (172 lb 2.9 oz) (Adjusted IBW) Fluids: 2500ml based on Estimated/Assessed Carbohydrates Needs: 75 g CHO/meal Current Diet: Diet Diabetic/ Calorie Controlled; Carb Counting 60g/meal 9295-3230 kcal; 2 gm NA (Low Sodium); 2 gm K (Low Potassium); 800-1000mg Phosphorus (Low Phosphorus); Low Fat (50gmfat, Low Chol, Low Sat Fat); Thin Liquids Intake Compared to Estimated Needs: Energy Intake: not meeting needs (patient has been on/off NPO status) x 7 days Protein Intake: not meeting needs x 7 days Fluid Intake: other (see comments) (1596 ml x 24 hrs per I/Os) Educational Needs Assessment: Assessed patient's learning needs. Barriers to Education: None noted at this time. Monitoring & Evaluation: Goals to be Achieved by Next Assessment: PO intake greater than or equal to 75% of calculated needs by next assessment. Drink ONS as ordered Glycemic Control: 80-180 mg/dL Monitoring/Evaluation: RD/DTR will monitor and evaluate nutrition plan of care and provide additional interventions and recommendations based on nutrition/clinical status. Sign: Ana Huang RD 11/10/2024 4:02 PM * Timo Keita MD - 11/08/2024 8:17 PM ESTAssociated Order(s): IP CONSULT TO CARDIOLOGY Electrophysiology Consult Note Date: 11/08/2024 Patient's Primary Care Physician: Lee Fabian MD Referring Physician: No ref. provider found Assessment & Plan Assessment: Blas Genao is a 63 y.o.male with PMHx of HTN, HLD, DM 2, CKD stage III, PAD, ESBL infection, diabetic foot infection/osteomyelitis s/p right TMA, left calcaneal osteomyelitis, complete heart block s/p dual-chamber pacemaker placement 2016 and persistent atrial fibrillation/flutter with multiple ablations and cardioversions, s/p Watchman device placement in 2018 who is admitted with Enterococcus faecalis and MRSA bacteremia, now s/p left BKA. EP is consulted for concern for infective endocarditis of mitral valve and seeding of pacer leads. Polymicrobial bacteremia-MRSA, Enterococcus faecalis, Enterococcus faecium Concern for mitral valve and pacemaker lead endocarditis Left foot osteomyelitis s/p BKA Hypoxic respiratory failure secondary to acute CHF Complete heart block s/p PPM-2016 Permanent atrial fibrillation/flutter s/p multiple ablations and Watchman device implantation 2018 Recommendation: Pending TATIANNA for further evaluation Further plan based on results of TATIANNA Recommendations are considered preliminary until the note is cosigned by the attending. Subjective History of Present Illness Blas Genao is a 63 y.o. male with PMHx of HTN, HLD, DM 2, CKD stage III, PAD, ESBL infection, diabetic foot infection/osteomyelitis s/p right TMA, left calcaneal osteomyelitis, complete heart block s/p dual-chamber pacemaker placement 2015 and persistent atrial fibrillation/flutter with multiple ablations and cardioversions, s/p Watchman device placement in 2018 who was initially admitted for left BKA. An echocardiogram was performed which was concerning for a mitral valve vegetation and blood cultures revealed Enterococcus faecalis and MRSA bacteremia. Patient underwent left BKA on . Hospital course has been complicated by hypoxic respiratory failure secondary to acute pulmonary edema and CHF exacerbation. He has been unable to get a TATIANNA for further evaluation of valves. EP consultation was requested for concern for likely infective endocarditis and involvement of pacer leads. Cardiac work-up: TTE 11/04/2024 The left ventricle is mildly dilated. Left ventricular systolic function is mildly decreased. The quantitative EF is 43% by 3D imaging, and 46% by 2D Martinez biplane. The right ventricle is dilated. Right ventricular systolic function is normal. A pacer wire is present in the right ventricle. Right atrial cavity is severely dilated. A pacemaker wire is present in the right atrium. The mitral leaflets are moderately thickened. There is moderate to severe mitral regurgitation. Cannot rule out vegetation on the mitral valve leaflets. There is moderate tricuspid regurgitation. The estimated right ventricular systolic pressure is 44 mmHg. There is mild aortic regurgitation. The pulmonic valve was not well visualized. Compared to previous outside study report from [facility] on 08/05/2024, Mitral and tricuspid regurgitation were not previously reported. Recommend transesophageal echocardiogram if clinically indicated. Review of Systems 10 point review of systems was negative except as mentioned in the HPI. Objective Past History Past Medical History: Diagnosis Date A-fib (HCC) Acute osteomyelitis (HCC) Atrial flutter (HCC) Cardiac pacemaker 2015 Carotid atherosclerosis Charcot's joint of right foot 2015 Chronic sciatica Complete AV block (HCC) Diabetes mellitus (HCC) TYPE II Diabetic foot ulcer (HCC) ED (erectile dysfunction) Edema ESBL (extended spectrum beta-lactamase) producing bacteria infection GERD (gastroesophageal reflux disease) GI bleed Hyperlipidemia Hypertension Leukocytosis Metabolic bone disease Multiple drug resistant organism (MDRO) culture positive Non healing left heel wound Obesity Osteoarthrosis Osteomyelitis of both feet (HCC) PAD (peripheral artery disease) Primary osteoarthritis of knee Proteinuria Renal osteodystrophy Restless legs syndrome (RLS) no meds, lyrica helps Septic joint of left knee joint (HCC) Sleep apnea BiPap Smoker Stage 3a chronic kidney disease (CKD) (HCC) Past Surgical History: Procedure Laterality Date AMPUTATION Right 2017 TMA AMPUTATION BELOW KNEE Left 11/05/2024 Procedure: LEFT BELOW KNEE AMPUTATION; Surgeon: Dallas Camejo MD; Location: [facility]; Service: Orthopaedics; Laterality: Left; AORTOGRAM- ABDOMINAL Left 09/15/2024 Procedure: LEFT LOWER EXTREMITY ANGIOGRAM; Surgeon: Delbert Mcintosh MD; Location: [facility]; Service: Peripheral Vascular; Laterality: Left; BARIATRIC SURGERY 2018 CARDIAC ELECTROPHYSIOLOGY STUDY AND ABLATION x5 CARDIAC PACEMAKER PLACEMENT 2016 CARDIAC SURGERY 2020 watchman device CARDIOVERSION 07/2024 CC PERIPHERAL ANGIOGRAPHY Left 07/2024 LE CHANGE DRESSING WOUND VAC Left 09/10/2024 Procedure: APPLICATION OF WOUND VAC; Surgeon: Dallas Camejo MD; Location: [facility]; Service: Orthopaedics; Laterality: Left; FOOT SURGERY Right x5 INCISION AND DRAINAGE FOOT Left [place] PROCEDURE MAZE AFIB OSTECTOMY CALCANEOUS Left 09/10/2024 Procedure: ANKLE PARTIAL CALCANECTOMY; Surgeon: Dallas Camejo MD; Location: [facility]; Service: Orthopaedics; Laterality: Left; wOUND PARTIALLY CLOSED SUPERFICIALLY, WOUND VAC PLACED TOTAL KNEE ARTHROPLASTY Left 2016 REVISION SAME YEAR/INFECTION No family history on file. Social History Tobacco Use Smoking status: Former Current packs/day: 1.00 Average packs/day: 1 pack/day for 29.1 years (29.1 ttl pk-yrs) Types: Cigarettes Start date: 1976 Quit date: 2003 Smokeless tobacco: Never Substance Use Topics Alcohol use: Yes Alcohol/week: 21.0 standard drinks of alcohol Types: 21 Cans of beer per week Allergies Allergies Allergen Reactions Lisinopril Other (See Comments) Dehydration Home Medications Prior to Admission medications Medication Sig Start Date End Date Taking? Authorizing Provider acetaminophen (TYLENOL) 325 MG tablet Take 3 tablets (975 mg total) by mouth 4 times daily (every 6hours) as needed for mild pain. 09/16/24 09/30/24 Bev Mccauley PA-C amiODARONE (PACERONE) 200 MG tablet Take 1 tablet (200 mg total) by mouth 2 times a day. 08/31/24 08/31/25 External Provider, amLODIPine (NORVASC) 10 MG tablet Take 1 tablet (10 mg total) by mouth. 07/31/24 External Provider, amoxicillin (AMOXIL) 500 MG capsule Take 1 capsule (500 mg total) by mouth 3 (three) times a day. For 1 week for DENTAL procedures 08/31/24 External ProviderMD amoxicillin (AMOXIL) 500 MG tablet Take 2 tablets (1,000 mg total) by mouth 2 (two) times a day. For 14 days External Provider, apixaban (ELIQUIS) 5 MG tablet Take 1 tablet (5 mg total) by mouth 2 times a day. External Provider, ascorbic acid (VITAMIN C) 500 MG tablet Take 1 tablet (500 mg total) by mouth daily. 09/16/24 09/30/24 Bev Mccauley PA-C bumetanide (BUMEX) 2 MG tablet Take 1 tablet (2 mg total) by mouth daily. External Provider, Cholecalciferol (Vitamin D-3) 125 MCG (5000 UT) Tab Take 2 tablets by mouth every morning. ExternalProviderMD ciprofloxacin (CIPRO) 500 MG tablet Take 1 tablet (500 mg total) by mouth 2 (two) times a day. External Provider, Continuous Glucose Sensor (FreeStyle Wallace 3 Sensor) Misc INJECT 1 DEVICE INTO THE SKIN EVERY 14 DAYS 06/30/24 External Provider, cyanocobalamin 2500 MCG Tab Take 1 tablet (2,500 mcg total) by mouth daily. External Provider, donepezil (ARICEPT) 10 MG tablet Take 1 tablet (10 mg total) by mouth every morning. 10/20/23 External Provider, glipiZIDE (GLUCOTROL) 2.5 mg tablet Take 1 tablet (2.5 mg total) by mouth 2 times a day. 03/10/24 External Provider, Jardiance 25 MG tablet Take 1 tablet (25 mg total) by mouth daily. 05/06/24 External Provider, Magnesium 250 MG Tab Take 250 mg by mouth every morning. External Provider, melatonin 10 MG Tab tablet Take 5 mg by mouth nightly. External Provider, metFORMIN (GLUCOPHAGE) 1000 MG tablet Take 0.5 tablets (500 mg total) by mouth every morning with breakfast. 07/31/24 External Provider, metFORMIN (GLUCOPHAGE) 500 MG tablet Take 1 tablet (500 mg total) by mouth every morning with breakfast. External Provider, methocarbamol (ROBAXIN) 500 MG tablet Take 1 tablet (500 mg total) by mouth 4 (four) times a day asneeded for muscle spasms. 09/16/24 10/16/24 Bev Mccauley PA-C metoPROLOL TARTRATE (LOPRESSOR) 50 MG tablet Take 1 tablet (50 mg total) by mouth 2 times a day. External Provider, nicotine (NICODERM CQ) 7 MG/24HR patch Place 1 patch on the skin daily. 05/24/24 External Provider, oxyCODONE (ROXICODONE) 5 MG immediate release tablet Take 1-2 tablets (5-10 mg total) by mouth every 4 (four) hours as needed for severe pain. Max Daily Amount: 60 mg 10/05/24 Sheila Childs APRN PANTOprazole (PROTONIX) 40 MG EC tablet Take 1 tablet (40 mg total) by mouth daily. 09/16/23 External ProviderMD polyethylene glycol (miraLAx) 17 g packet Take 1 packet (17 g total) by mouth daily. 09/16/24 09/26/24 Bev Mccauley PA-C pravastatin (PRAVACHOL) 20 MG tablet Take 1 tablet (20 mg total) by mouth daily. 07/27/24 External Provider, pregabalin (LYRICA) 150 MG capsule Take 1 capsule (150 mg total) by mouth 2 times a day. 10/20/23 External Provider, MD bolivar (SENOKOT) 8.6 MG Tab tablet Take 2 tablets by mouth daily as needed for constipation. 09/16/24 09/23/24 Bev Mccauley PA-C sulfamethoxazole-trimethoprim (BACTRIM DS,SEPTRA DS) 800-160 MG per tablet Take 1 tablet by mouth 2(two) times a day. 10/05/24 [facility] acetaminophen, 975 mg, Oral, Q6H [place] amiODARONE, 200 mg, Oral, BID amLODIPine, 10 mg, Oral, Daily aspirin enteric coated, 81 mg, Oral, Q12H [place] aztreonam, 2 g, Intravenous, Q8H buPROPion, 150 mg, Oral, BID calcium citrate, 950 mg, Oral, BID with meals ceftaroline (TEFLARO) IV, 600 mg, Intravenous, Q8H chlorhexidine gluconate, , Topical, Daily chlorhexidine gluconate, , Topical, Daily cholecalciferol, 2,000 Units, Oral, Daily cyanocobalamin, 2,500 mcg, Oral, Daily DAPTOmycin, 10 mg/kg (Adjusted), Intravenous, Q24H donepezil, 10 mg, Oral, QAM [Provider Held] empagliflozin, 25 mg, Oral, Daily folic acid, 1 mg, Oral, Daily [Provider Held] glimepiride, 2 mg, Oral, Daily with breakfast insulin lispro, 1-11 Units, Subcutaneous, TID with meals insulin lispro, 1-4 Units, Subcutaneous, NIGHTLY & 2AM insulin lispro, 5 Units, Subcutaneous, TID with meals magnesium sulfate IV, 2 g, Intravenous, Once [Provider Held] metFORMIN, 500 mg, Oral, Daily with breakfast methocarbamol, 1,000 mg, Oral, 4x Daily metoPROLOL TARTRATE, 50 mg, Oral, BID multivitamin with minerals, 1 tablet, Oral, Daily nicotine, 1 patch, Transdermal, Daily PANTOprazole, 40 mg, Oral, Daily potassium chloride, 20 mEq, Oral, Once [Provider Held] pravastatin, 20 mg, Oral, Daily pregabalin, 150 mg, Oral, TID senna-docusate, 2 tablet, Oral, BID thiamine, 200 mg, Oral, Daily Physical Exam Last Vitals Pulse:63,Resp:(!) 22,BP:(!) 143/67,SpO2:(!) 91 %,Weight:120 kg (264 lb 8 oz) Temp Last 24 hrs: Temp Min: 97 ??F (36.1 ??C) Max: 97.8 ??F (36.6 ??C) Intake/Output Summary (Last 24 hours) at 11/08/2024 2018 Last data filed at 11/08/2024 1820 Gross per 24 hour Intake 687 ml Output 2000 ml Net -1313 ml Vitals signs and nursing note reviewed. Constitutional: General: Patient is awake. Patient is not in acute distress. Appearance: Normal appearance. Patient is well-developed. Patient is not toxic- appearing. Overweight Eyes: General: No scleral icterus. Conjunctiva/sclera: Conjunctivae normal. Cardiovascular: Regular rate and rhythm, no murmurs, rubs or gallops Pulmonary: Effort: Pulmonary effort is normal. No tachypnea or respiratory distress. Musculoskeletal: General: No swelling/edema present in bilateral lower extremities Skin: Coloration: Skin is not cyanotic Neurological: General: Speech is clear, no facial droop Mental Status: Patient is awake and alert. Mental status is at baseline. Psychiatric: Attention and Perception: Attention normal. Mood and Affect: Mood and affect normal. Speech: Speech normal. Behavior: Behavior normal. Behavior is cooperative. Relevant data reviewed: ECG: EKG 11/07/2024-ventricular paced rhythm Telemetry: Paced rhythm Labs Notable labs are: Lab Results Component Value Date WBC 13.1 (H) 11/08/2024 HGB 7.9 (L) 11/08/2024 HCT 25.6 (L) 11/08/2024 PLT 378 11/08/2024 Lab Results Component Value Date NA 141 11/08/2024 K 3.3 (L) 11/08/2024 CL 102 11/08/2024 CO2 26 11/08/2024 CO2 22 11/07/2024 BUN 45 (H) 11/08/2024 CREAT 1.7 (H) 11/08/2024 GLUC 134 (H) 11/08/2024 GLUC 170 (H) 11/08/2024 GLUC 119 (H) 09/10/2024 No results found for: CHOL , TRIG , HDL , ESTLDL , CHOLHDLRAT Lab Results Component Value Date CALCIUM 8.6 (L) 11/08/2024 MG 1.9 11/08/2024 PHOS 4.9 (H) 11/08/2024 Lab Results Component Value Date AST 24 11/08/2024 ALT 24 11/08/2024 ALKPHOS 226 (H) 11/08/2024 BILITOT <0.2 (L) 11/08/2024 BILIDIR 0.1 11/08/2024 ALBUMIN 2.3 (L) 11/08/2024 PROT 5.5 (L) 11/08/2024 Lab Results Component Value Date PTT 35 09/13/2024 LABPROT 15.3 (H) 11/05/2024 INR 1.3 11/05/2024 Lab Results Component Value Date HGBA1C 8.7 (H) 09/03/2024 No results found for: TSH No results found for: CK , JUSTICE , TNI , BNP Of note, some information is being carried forward from prior records for informational purposes only and is being cited so that efficiency, safety and quality of this patient's care is not compromised. Sign: Timo Keita MD 11/08/2024 8:18 PM Associated attestation - Rui Pabon MD - 11/09/2024 4:34 PM EST I have personally interviewed and examined the patient with Dr. Keita. 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 63-year-old male history of hypertension hyperlipidemia diabetes CKD stage III peripheral artery disease diabetic foot infection with osteomyelitis status post right TMA complete heart block status post dual-chamber pacemaker in 2016 in the setting of epicardial atrial fibrillation ablation. He hashad multiple ablations and cardioversions. He status post a Watchman device in 2018. He is now admitted with polymicrobial bacteremia including Enterococcus and MRSA. He had a nonhealing left lower extremity ulcer and is now status post left BKA. Awaiting TATIANNA. Would agree given his bacteremia he will require extraction of his pacing system. He does have complete heart block and is dependent. Willlikely implant Micra at the time of his extraction. Sign: Rui Pabon MD 11/09/2024 4:30 PM * Tonya Gasca LCSW - 11/08/2024 12:17 PM ESTAssociated Order(s): IP CONSULT TO SOCIAL WORK SW rec'd an additional consult for pt today for substance use. SW Hilda Almodovar met with pt on 11/04/24 and he reported not concerns with his alcohol use. This SW will plan to talk with pt about obtaining a copy of Advance Directives. Pt was transferred to SD Unit due to need for rescue bipap. * Nitish Tracy MD - 11/04/2024 3:31 PM EST Images from the original note were not included. [facility] CARDIOLOGY SERVICE CONSULT Date of Consult: 11/04/2024 Patient's Primary Care Physician: Lee Fabian MD Physician Requesting Consult: Orthopedic surgery Primary Retail Shift Manager: Retail Shift Manager at [facility] Reason for Consultation: Preop Admit Date: 11/02/2024 6:10 PM Assessment & Plan Assessment Preop for left BKA scheduled for 11/05/2024 History of persistent atrial fibrillation on Eliquis, status post Watchman device implanted in 2018 Hypertension Hyperlipidemia History of AV block status post dual-chamber pacemaker in 2016 Mild carotid atherosclerosis Type 2 diabetes Recent and recurrent foot ulcerations and episodes of osteomyelitis Plan - From cardiac standpoint patient is moderate risk for the procedure however transthoracic echocardiogram is showing concerns for mitral valve vegetation. - Would recommend obtaining TATIANNA first and postponing the procedure for now - If echocardiogram confirms endocarditis then would need to involve CT surgery as well as EP for assessment of pacemaker evacuation. From the ECG it appears that patient is pacemaker dependent. Thank you for this consult. We will follow with you. Please do not hesitate to call with questions. Subjective Chief Complaint Preop History of Present Illness 63-year-old male with medical issues as noted above presented to be GI inpatient floor for known left Calc osteomyelitis with plans of left BKA on 11/05/2024. Cardiology was consulted for preop restratification. During my evaluation patient denies any active chest pain or shortness of breath. ECG shows AV paced rhythm. Functional capacity is limited. Echocardiogram done today showed concerns for endocarditis. Review of Systems Negative except as stated above Objective Past Medical History: Diagnosis Date A-fib ([facility]) Acute osteomyelitis ([facility]) Atrial flutter ([facility]) Cardiac pacemaker 2016 Carotid atherosclerosis Charcot's joint of right foot 2015 Chronic sciatica Complete AV block ([facility]) Diabetes mellitus ([facility]) TYPE II Diabetic foot ulcer ([facility]) ED (erectile dysfunction) Edema ESBL (extended spectrum beta-lactamase) producing bacteria infection GERD (gastroesophageal reflux disease) GI bleed Hyperlipidemia Hypertension Leukocytosis Metabolic bone disease Multiple drug resistant organism (MDRO) culture positive Non healing left heel wound Obesity Osteoarthrosis Osteomyelitis of both feet ([facility]) PAD (peripheral artery disease) ([facility]) Primary osteoarthritis of knee Proteinuria Renal osteodystrophy Restless legs syndrome (RLS) no meds, lyrica helps Septic joint of left knee joint ([facility]) Sleep apnea BiPap Smoker Stage 3a chronic kidney disease (CKD) ([facility]) Reviewed Past Surgical History: Procedure Laterality Date AMPUTATION Right 2017 TMA AORTOGRAM- ABDOMINAL Left 09/15/2024 Procedure: LEFT LOWER EXTREMITY ANGIOGRAM; Surgeon: Delbert Mcintosh MD; Location: Main OR; Service: Peripheral Vascular; Laterality: Left; BARIATRIC SURGERY 2018 CARDIAC ELECTROPHYSIOLOGY STUDY AND ABLATION x5 CARDIAC PACEMAKER PLACEMENT 2016 CARDIAC SURGERY 2020 watchman device CARDIOVERSION 07/2024 CC PERIPHERAL ANGIOGRAPHY Left 07/2024 LE CHANGE DRESSING WOUND VAC Left 09/10/2024 Procedure: APPLICATION OF WOUND VAC; Surgeon: Dallas Camejo MD; Location: [facility] OR; Service: Orthopaedics; Laterality: Left; FOOT SURGERY Right x5 INCISION AND DRAINAGE FOOT Left OH PROCEDURE MAZE AFIB OSTECTOMY CALCANEOUS Left 09/10/2024 Procedure: ANKLE PARTIAL CALCANECTOMY; Surgeon: Dallas Camejo MD; Location: [facility] OR; Service: Orthopaedics; Laterality: Left; wOUND PARTIALLY CLOSED SUPERFICIALLY, WOUND VAC PLACED TOTAL KNEE ARTHROPLASTY Left 2016 REVISION SAME YEAR/INFECTION Reviewed No family history on file. Reviewed Social History Tobacco Use Smoking status: Former Current packs/day: 1.00 Average packs/day: 1 pack/day for 29.1 years (29.1 ttl pk-yrs) Types: Cigarettes Start date: 1976 Quit date: 2003 Smokeless tobacco: Never Substance Use Topics Alcohol use: Yes Alcohol/week: 21.0 standard drinks of alcohol Types: 21 Cans of beer per week Drug use: Never Reviewed Medications Prior to Admission Medications: Medications Prior to Admission Medication Sig Dispense Refill Last Dose acetaminophen (TYLENOL) 325 MG tablet Take 3 tablets (975 mg total) by mouth 4 times daily (every 6hours) as needed for mild pain. 168 tablet 0 amiODARONE (PACERONE) 200 MG tablet Take 1 tablet (200 mg total) by mouth 2 times a day. amLODIPine (NORVASC) 10 MG tablet Take 1 tablet (10 mg total) by mouth. amoxicillin (AMOXIL) 500 MG capsule Take 1 capsule (500 mg total) by mouth 3 (three) times a day. For 1 week for DENTAL procedures amoxicillin (AMOXIL) 500 MG tablet Take 2 tablets (1,000 mg total) by mouth 2 (two) times a day. For 14 days apixaban (ELIQUIS) 5 MG tablet Take 1 tablet (5 mg total) by mouth 2 times a day. ascorbic acid (VITAMIN C) 500 MG tablet Take 1 tablet (500 mg total) by mouth daily. 14 tablet 0 bumetanide (BUMEX) 2 MG tablet Take 1 tablet (2 mg total) by mouth daily. Cholecalciferol (Vitamin D-3) 125 MCG (5000 UT) Tab Take 2 tablets by mouth every morning. ciprofloxacin (CIPRO) 500 MG tablet Take 1 tablet (500 mg total) by mouth 2 (two) times a day. Continuous Glucose Sensor (FreeStyle Wallace 3 Sensor) [facility] INJECT 1 DEVICE INTO THE SKIN EVERY 14 DAYS cyanocobalamin 2500 MCG Tab Take 1 tablet (2,500 mcg total) by mouth daily. donepezil (ARICEPT) 10 MG tablet Take 1 tablet (10 mg total) by mouth every morning. glipiZIDE (GLUCOTROL) 2.5 mg tablet Take 1 tablet (2.5 mg total) by mouth 2 times a day. Jardiance 25 MG tablet Take 1 tablet (25 mg total) by mouth daily. Magnesium 250 MG Tab Take 250 mg by mouth every morning. melatonin 10 MG Tab tablet Take 5 mg by mouth nightly. metFORMIN (GLUCOPHAGE) 1000 MG tablet Take 0.5 tablets (500 mg total) by mouth every morning with breakfast. metFORMIN (GLUCOPHAGE) 500 MG tablet Take 1 tablet (500 mg total) by mouth every morning with breakfast. methocarbamol (ROBAXIN) 500 MG tablet Take 1 tablet (500 mg total) by mouth 4 (four) times a day asneeded for muscle spasms. 20 tablet 0 metoPROLOL TARTRATE (LOPRESSOR) 50 MG tablet Take 1 tablet (50 mg total) by mouth 2 times a day. nicotine (NICODERM CQ) 7 MG/24HR patch Place 1 patch on the skin daily. oxyCODONE (ROXICODONE) 5 MG immediate release tablet Take 1-2 tablets (5-10 mg total) by mouth every 4 (four) hours as needed for severe pain. Max Daily Amount: 60 mg 42 tablet 0 PANTOprazole (PROTONIX) 40 MG EC tablet Take 1 tablet (40 mg total) by mouth daily. polyethylene glycol (miraLAx) 17 g packet Take 1 packet (17 g total) by mouth daily. 10 packet 0 pravastatin (PRAVACHOL) 20 MG tablet Take 1 tablet (20 mg total) by mouth daily. pregabalin (LYRICA) 150 MG capsule Take 1 capsule (150 mg total) by mouth 2 times a day. senna (SENOKOT) 8.6 MG Tab tablet Take 2 tablets by mouth daily as needed for constipation. 14 tablet 0 sulfamethoxazole-trimethoprim (BACTRIM DS,SEPTRA DS) 800-160 MG per tablet Take 1 tablet by mouth 2(two) times a day. 28 tablet 0 Current Medications / MAR: Medications Scheduled Medication Ordered Dose/Rate, Route, Frequency Last Action acetaminophen (TYLENOL) tablet 975 mg 975 mg, PO, Q6H JUDSON Given, 975 mg at 11/04 1015 amiODARONE (PACERONE) tablet 200 mg 200 mg, PO, BID Given, 200 mg at 11/04 0756 amLODIPine (NORVASC) tablet 10 mg 10 mg, PO, Daily Given, 10 mg at 11/04 0755 aspirin enteric coated (ECOTRIN LOW STRENGTH) tablet 81 mg 81 mg, PO, Daily Given, 81 mg at 11/04 0755 [Provider Held] bumetanide (BUMEX) tablet 2 mg On hold since today at 1503 until manually unheld; held by Gayle Rey Reason: Pre-procedure On hold since today at 1503 until manually unheld Hold reason: Pre-procedure 2 mg, PO, Daily Given, 2 mg at 11/04 754 buPROPion (WELLBUTRIN SR) 12 hr tablet 150 mg 150 mg, PO, BID Given, 150 mg at 11/04 756 cyanocobalamin (VITAMIN B-12) tablet 2,500 mcg 2,500 mcg, PO, Daily Given, 2,500 mcg at 11/04 755 DAPTOmycin (CUBICIN) 975 mg in sodium chloride (NS) 0.9 % 50 mL IVPB 10 mg/kg, IV, Q24H Stopped, 11/04 1418 docusate sodium (COLACE) capsule 100 mg 100 mg, PO, BID Given, 100 mg at 11/04 075 donepezil (ARICEPT) tablet 10 mg 10 mg, PO, QAM Given, 10 mg at 11/04 075 [Provider Held] empagliflozin (JARDIANCE) 25 mg On hold since today at 1503 until manually unheld; held by Gayle Rey Reason: Pre-procedure On hold since today at 1503 until manually unheld Hold reason: Pre-procedure 25 mg, PO, Daily Given, 25 mg at 11/04 075 [Provider Held] glimepiride (AMARYL) tablet 2 mg On hold since today at 1503 until manually unheld;held by Gayle Rey Reason: Pre-procedure On hold since today at 1503 until manually unheld Hold reason: Pre-procedure 2 mg, PO, Daily with breakfast Given, 2 mg at 11/04 075 insulin lispro (HumaLOG/ADMELOG) 100 units/mL injection 1-4 Units 1-4 Units, SC, NIGHTLY & 2AM Ordered insulin lispro (HumaLOG/ADMELOG) 100 units/mL injection 1-6 Units 1-6 Units, SC, TID with meals Given, 1 Units at 11/04 1339 meropenem (MERREM) 500 mg in sodium chloride-MBP (NS) 100 mL IVPB-MBP 500 mg, IV, Q6H Stopped, 11/04 1318 [Provider Held] metFORMIN (GLUCOPHAGE) tablet 500 mg On hold since today at 1503 until manually unheld; held by Juaquin M Kern, MDHold Reason: Pre-procedure On hold since today at 1503 until manually unheld Hold reason: Pre-procedure 500 mg, PO, Daily with breakfast Given, 500 mg at 11/04 755 metoPROLOL TARTRATE (LOPRESSOR) tablet 50 mg 50 mg, PO, BID Given, 50 mg at 11/04 075 PANTOprazole (PROTONIX) EC tablet 40 mg 40 mg, PO, Daily Given, 40 mg at 11/04 075 [Provider Held] pravastatin (PRAVACHOL) tablet 20 mg On hold since yesterday at 0850 until manuallyunheld; held by Gayle Rose Reason: Other - Comment requiredHold Comments: While on IV daptomycin On hold since yesterday at 0850 until manually unheld (Needs Review) Hold reason: Other - Comment required, Hold comment: While on IV daptomycin 20 mg, PO, Daily Ordered pregabalin (LYRICA) capsule 150 mg 150 mg, PO, BID Given, 150 mg at 11/04 755 senna (SENOKOT) tablet 2 tablet 2 tablet, PO, Nightly Given, 2 tablet at 11/03 2233 Continuous Medication Ordered Dose/Rate, Route, Frequency Last Action lactated ringers (LR) infusion 100 mL/hr, IV, Continuous Ordered PRN Medication Ordered Dose/Rate, Route, Frequency Last Action bisacodyl (DULCOLAX) EC tablet 5 mg 5 mg, PO, Daily PRN Ordered bisacodyl (DULCOLAX) suppository 10 mg 10 mg, RE, Daily PRN Ordered calcium carbonate (TUMS) chewable tablet 1,000 mg 1,000 mg, PO, Q12H PRN Ordered dextrose 50 % solution 12.5 g (Or Linked Group #1) 12.5 g, IV, Q15 Min PRN Ordered dextrose 50 % solution 25 g (Or Linked Group #1) 25 g, IV, Q15 Min PRN Ordered glucagon (GLUCAGEN) injection 1 mg (Or Linked Group #1) 1 mg, IM, Daily PRN Ordered glucose (GLUTOSE 15) 40 % oral gel 37.5 g (Or Linked Group #1) 1 Tube, PO, Q15 Min PRN Ordered glucose (GLUTOSE 15) 40 % oral gel 75 g (Or Linked Group #1) 2 Tube, PO, Q15 Min PRN Ordered magnesium hydroxide (MILK OF MAGNESIA) 400 mg/5 mL suspension 30 mL 30 mL, PO, Daily PRN Ordered melatonin tablet 3 mg 3 mg, PO, Nightly PRN Ordered methocarbamol (ROBAXIN) tablet 750 mg 750 mg, PO, 4x Daily PRN Given, 750 mg at 11/02 1856 ondansetron (ZOFRAN-ODT) disintegrating tablet 4 mg 4 mg, PO, Q6H PRN Ordered oxyCODONE (ROXICODONE) immediate release tablet 10 mg 10 mg, PO, Q3H PRN Given, 10 mg at 11/04 0728 oxyCODONE (ROXICODONE) immediate release tablet 5 mg 5 mg, PO, Q3H PRN Ordered polyethylene glycol (miraLAx) packet 17 g 17 g, PO, Daily PRN Ordered Allergies Allergen Reactions Lisinopril Other (See Comments) Dehydration Physical Exam Vitals: 11/03/24 2100 11/04/24 0610 11/04/24 0751 11/04/24 1400 BP: (!) 142/67 124/59 133/63 122/62 BP Location: Right arm Left arm Right arm Patient Position: Lying Lying Lying Pulse: 82 68 74 77 Resp: 18 20 18 Temp: (!) 100.9 ??F (38.3 ??C) 100 ??F (37.8 ??C) 97.9 ??F (36.6 ??C) (!) 96.2 ??F (35.7 ??C) TempSrc: Tympanic Tympanic Tympanic SpO2: 95% 94% 93% 94% Weight: Intake/Output Summary (Last 24 hours) at 11/04/2024 1531 Last data filed at 11/04/2024 1300 Gross per 24 hour Intake 2650 ml Output 1 ml Net 2649 ml Gen : comfortable, alert JVP : Not distended HEENT: no icterus or pallor, moist oral mucosa Lungs : good inspiratory effort, no crackles, no wheezing CVS : regular rhythm, normal S1 S2, no murmur or gallop Abdo : soft, non-distended, non-tender, no organomegaly appreciated Peripheries : Not assessed Neuro: oriented x3, no focal abnormalities Skin: dry, no cyanosis, no rash Relevant data reviewed: Results from last 7 days Lab Units 11/04/24 1243 11/04/24 1050 11/04/24 0726 11/02/24 2119 11/02/241999 SODIUM mmol/L -- 130* -- -- 130* POTASSIUM mmol/L -- 3.7 -- -- 4.0 CHLORIDE mmol/L -- 95* -- -- 92* CO2 mmol/L -- 21* -- -- 19* BUN mg/dL -- 48* -- -- 41* CREATININE mg/dL -- 2.0* -- -- 2.0* CALCIUM mg/dL -- 7.7* -- -- 8.5* GLUCOSE mg/dL -- 184* -- -- 171* GLUCOSE, POC mg/dL 167* -- 141* < > -- EGFR -- 37* -- -- 37* ALBUMIN g/dL -- -- -- -- 3.2* < > = values in this interval not displayed. Lab Results Component Value Date MG 2.1 09/16/2024 Results from last 7 days Lab Units 11/04/24 1119 11/02/241999 WHITE BLOOD CELL COUNT Thou/uL 13.4* 14.3* HEMOGLOBIN g/dL 8.7* 9.3* HEMATOCRIT % 28.0* 29.3* PLATELET COUNT Thou/uL 326 395 NEUTROS PCT % -- 81.9 LYMPHS PCT % -- 4.8 MONOS PCT % -- 12.2 EOS PCT % -- 0.1 BASOS PCT % -- 0.4 No results found for: HSTNT No results found for: PROBNP Pertinent Cardiac & Imaging Studies Recent Results (from the past 8760 hour(s)) ECG 12 lead (STAT) Collection Time: 11/02/24 9:34 PM Result Value Status Ventricular rate 70 Final Atrial rate 70 Final P-R interval 272 Final QRS duration 202 Final Q-T interval 510 Final QTC calculation (Bazett) 551 Final P axis 81 Final R axis 29 Final T axis 132 Final Narrative Atrial-sensed ventricular-paced rhythm with prolonged AV conduction Abnormal ECG When compared with ECG of 15-Sep-2024 06:25, Vent. rate has increased by 9 bpm Confirmed by MD Danya, Deep ([id number]) on 11/03/2024 4:30:25 PM Echocardiogram (TTE) Comprehensive (Contrast PRN) Result Date: 11/04/2024 The left ventricle is mildly dilated. Left ventricular systolic function is mildly decreased. The quantitative EF is 43% by 3D imaging, and 46% by 2D Martinez biplane. The right ventricle is dilated. Right ventricular systolic function is normal. A pacer wire is present in the right ventricle. Right atrial cavity is severely dilated. A pacemaker wire is present in the right atrium. The mitral leaflets are moderately thickened. There is moderate to severe mitral regurgitation. Cannot rule out vegetation on the mitral valve leaflets. There is moderate tricuspid regurgitation. The estimated right ventricular systolic pressure is 44 mmHg. There is mild aortic regurgitation. The pulmonic valve was not well visualized. Compared to previous outside study report from [facility] on 08/05/2024, Mitral and tricuspid regurgitation were not previously reported. Recommend transesophageal echocardiogram if clinically indicated. All additional appropriate imaging studies within the past 24 hours reviewed - images reviewed and independently interpreted. Sign: Nitish Tracy MD [facility] [place] 11/04/2024 3:31 PM * Hilda Almodovar LICENSED [employer] APPRAISER - 11/04/2024 10:57 AM ESTAssociated Order(s): IP CONSULT TO SOCIAL WORK Social Work Consult Note Date of Consult: 11/04/2024 Referral Source: Case Coordination Reason for Consultation: transportation Visit Type: Inpatient Arrived From: Blas Gneao is a 63 y.o. male here with a chief complaint of No chief complaint on file.. Acute osteomyelitis of left calcaneus (HCC) [M86.172] 63 yo M admitted for IV antibiotics and L-BKA on 11/05/2024. Patient has a past medical history of A-fib (HCC), Acute osteomyelitis (HCC), Atrial flutter (HCC),Cardiac pacemaker (2015), Carotid atherosclerosis, Charcot's joint of right foot (2014), Chronic sciatica, Complete AV block (HCC), Diabetes mellitus (HCC), Diabetic foot ulcer (HCC), ED (erectile dysfunction), Edema, ESBL (extended spectrum beta-lactamase) producing bacteria infection, GERD (gastroesophageal reflux disease), GI bleed, Hyperlipidemia, Hypertension, Leukocytosis, Metabolic bone disease, Multiple drug resistant organism (MDRO) culture positive, Non healing left heel wound, Obesity, Osteoarthrosis, Osteomyelitis of both feet (HCC), PAD (peripheral artery disease) (HCC), Primary osteoarthritis of knee, Proteinuria, Renal osteodystrophy, Restless legs syndrome (RLS), Septic joint of left knee joint (HCC), Sleep apnea, Smoker, and Stage 3a chronic kidney disease (CKD) (HCC). Patient has a past surgical history that includes Incision and drainage foot (Left); Bariatric Surgery(2018); Cardioversion (07/2024); Cardiac pacemaker placement (2015); Amputation (Right, 2018); Footsurgery (Right); Total knee arthroplasty (Left, 2015); Cardiac surgery (2020); CC PERIPHERAL ANGIOGRAPHY (Left, 07/2024); OH PROCEDURE MAZE; Cardiac electrophysiology study and ablation; OSTECTOMY CALCANEOUS (Left, 09/10/2024); CHANGE DRESSING WOUND VAC (Left, 09/10/2024); and AORTOGRAM- ABDOMINAL (Left, 09/15/2024). Past Social Work Encounters: none noted Assessment & Plan of Care Pt is preparing for Left BKA tomorrow 11/05/2024. SW provided supportive therapy. Pt anxious about the unknown in regards to recovery time and details. SW normalized grief in relation to amputation and also focused on his strengths and supports. Pt has been working at [employer] in [place] up until recently. He shared he is deemed disabledunder Social Security Disability though has been working under ticket to work program. Pt states does not anticipate being able to return to his line of work and states he will get nursing home disability. Discussed [place] Paid Leave. Pt states his son Blas and friend Bry are main supports, though son is 45 min away so though he is supportive, he is not always available. Pt states he has advance directives living will and Healthcare Proxy. Pt stases he has looked into private in home services to supplement his regular VNA. He states though expensive, he could afford it if he were to end up needing that. We talked about programs such as extended eldercare program and will also looking into similar program for those younger than 65 in his area. He is interested in program that family or friend could become compensated caregiver if need be and let him know first step would be for him to get enrolled in one of the above type program. SW will plan to get pt literature on these programs. Also dicussed transprotation in his area. Gave pt info and literature on [facility]. Pt is familiar with this service though has not used it. He was glad to have the information. Thereis no application process for this service. Anyone 60 or older that lives within TA's service area can use it and make reservations at [phone]. Pt indicates being able to facilitate rides to his [place] follow ups as it's not anticipated that the [facility] service would bring him to [place]. He plans to ask [employer] though can make other arrangements if needed. Current Stressors: preparing for L BKA tomorrow and anxious about recovery process . Strengths: Access to Housing/Residential Stability, Expressive of emotions, Expressive of needs, Future/goal oriented, Humor, Interests/Hobbies, Motivated, and Strong support system Response to Health Status: Anxious and Motivated Understanding of Condition and Treatment: Adequate Understanding of Medical Condition Social Work Interventions: Introduced self and services Provided emotional support using active, reflective, and empathetic listening Normalized and validated feelings and experience Supportive therapy and counseling Explored and processed thought, feelings, and perceptions around issues related to the current circumstances Provided a supportive, non-anxious presence Provided a supportive non-judgmental presence Provided information about community resources Explored aspects of personal history Explored resources for coping Explored available source of support Resources and Education Provided: I provided education and resources on role of SW. Transportation. Discussed advance directives. SW business card with contact info. Summary/Plan psychosocial / emotional support. Pt to follow up on resources provided. Provide additional resources on programs in his area in which caregiver could be considered as compensated caregiver if he gets enrolled. Plan of Care Reviewed with: Patient Psychosocial History Demographic Information Preferred Language: Wallisian Preferred Name: Blas Relationship status: Single Children: Blas Genao Adult Son Legal next of kin [phone] Advance Directive Advance Directives:Advance Directives Does Patient Have Advance Directives?: yes Living Will: yes, copy requested Healthcare Cut Off Saw Grader: yes, copy requested Legally Authorized Cut Off Saw Grader Blas Genao Adult Son Legal next of kin [phone] Living Environment Household Members: pt and 3 pet cats Living Arrangements: House Does the patient have any environmental/safety concerns? No Support System Who currently provides assistance/support for the patient? Son , friends Also has homecare svs [facility] Quality of support systems? Supportive Patient provides care for: Self and Pet cats has 3 Employment/Finances/Insurance Financial Source: has been salary wages. Pt states he will be back on disability. Has been working through [employer] to Work Program and will be back on disability. Employment: Disabled Financial Concerns: None Is FMLA an available benefit for the patient/family? Discussed MA Paid Leave. Insurance Source: AETNA MGD MEDICARE/AET[employer] MGD MEDICARE Psychological Health/Cognition Current Mental Status/Cognitive Functioning: Able to Comprehend, Affect Appropriate to Mood, Alert,Oriented to Person, Place, and Time, and Immediate, Recent and Remote Memory Intact Thought Content/Process: Organized, normal Judgment/Insight: Judgment/Insight Appropriate to Situation/Age Affect: Mood-Congruent Mood: Congruent to Situation Behaviors: Appropriate to Situation, cooperative Verbal Skills: No Deficits Noted Mental Health Conditions/Symptoms: Denies Mental Health Treatment: None Suicidal or Homicidal Assessment: Denied Substance Issues Audit c low positive score 4. Pt states drinks 1 or 2 beers 3 or 4 times per week. Pt not concerned about alcohol intake. Sign: Hilda Almodovar LCSW * Ena Mtz MD - 11/03/2024 8:20 AM ESTAssociated Order(s): IP CONSULT TO INFECTIOUS DISEASES Images from the original note were not included. [facility] INFECTIOUS DISEASE CONSULTATION Date of Consult: 11/03/2024 Physician Requesting Consult: Dallas Camejo MD Patient's Primary Care Physician: Lee Fabian MD Reason for Consultation: Osteomyelitis ASSESSMENT & PLAN This is a 63 y.o. year-old male complex medical history of atrial fibrillation, cardiac pacemaker, Watchman device, diabetes type II, history of ESBL infection, peripheral vascular disease, chronic kidney disease, diabetic foot infection/osteomyelitis, status post right TMA, history of left calcaneal osteomyelitis status post multiple debridements and ostectomy in August 2024 and has been on wound VAC now with increasing pain, swelling and drainage from the left foot and also noted to have fever. Plans for left BKA on Friday, 11/05. ID consultation is requested for antibiotic recommendations. History of MDRO/ESBL E. Coli, VRE in wound cultures Left foot infection in the setting of left calcaneal osteomyelitis status post calcaneal ostectomy Fever/leukocytosis High CRP Concern for bacteremia. He also has pacemaker and endocarditis needs to be considered in the differential 4. Status post right TMA with some chronic wounds without any signs of infection 5. History of permanent pacemaker and watchman's device WBC: 14.3 platelets: 395 BUN/creatinine: 41/2.0 CRP: 29.62 ESR: 79 Blood cultures: 11/02: Pending MRSA nasal PCR: Negative 10/27: Left foot wound culture at [place]: MRSA, Enterococcus faecalis, VRE, Corynebacterium speciesand gram-negative bacilli on Gram stain Recommendations/Plan: -Given previous MDRO infections, discontinue vancomycin IV -Start on high-dose daptomycin 10 mg/kg to cover for VRE -Start on meropenem 500 mg IV every 6 hours for prior history of ESBL E. Coli -Follow-up on blood cultures -Check TTE -Plans for left BKA on 11/05 noted -Would hold on PICC line at this time pending blood culture results and further workup Thank you for allowing us to participate in the care of Blas Genao Discussed with orthopedic team Will follow Current antibiotic/day of therapy: Anti-infectives (From admission, onward) Start Dose/Rate Route Frequency Ordered Stop 11/02/241941 vancomycin (VANCOCIN) IV dosing PER PHARMACY PROTOCOL Pharmacy Protocol Orders Pharmacy Protocol Orders 11/02/241942 Sign Ena Mtz MD, FACP, SP [facility] Infectious Diseases Available via [employer] SUBJECTIVE HISTORY OF PRESENT ILLNESS: This is a 63 y.o. year-old male complex medical history of atrial fibrillation, cardiac pacemaker, Watchman device, diabetes type II, history of ESBL infection, peripheral vascular disease, chronic kidney disease, diabetic foot infection/osteomyelitis, status post right TMA, recent hospitalization at [facility] for left diabetic foot infection. He underwent debridement of the left foot on 08/22 and repeat debridement on 08/24. Intraoperative cultures then revealed Enterococcus, ESBL E. coli and was treated with amoxicillin, meropenem and Flagyl. Fernanda parapsilosis was thought to be a contaminant. He was admitted to [facility] and underwent left calcaneus ostectomy on 09/10/2024, with debridement down to healthy bone. He completed IV antibiotics on 09/14/2024 and then placed on oral Bactrim by orthopedics as an outpatient. He was continued on wound VAC. He presented to orthopedics office yesterday with increasing pain, swelling and drainage from the left foot. He was admitted for IV antibiotics and plans for BKA on Friday, 11/05. He has been on outpatient oral Bactrim. He admits to some low-grade fevers and fatigue. No nausea or vomiting. No diarrhea. No new rash. He also has a right foot chronic wound that are stable And is following up at wound care center CURRENT MEDICATIONS: REVIEWED ALLERGIES: Allergies Allergen Reactions Lisinopril Other (See Comments) Dehydration PAST MEDICAL HISTORY: Past Medical History: Diagnosis Date A-fib ([facility]) Acute osteomyelitis ([facility]) Atrial flutter ([facility]) Cardiac pacemaker 2016 Carotid atherosclerosis Charcot's joint of right foot 2015 Chronic sciatica Complete AV block ([facility]) Diabetes mellitus ([facility]) TYPE II Diabetic foot ulcer ([facility]) ED (erectile dysfunction) Edema ESBL (extended spectrum beta-lactamase) producing bacteria infection GERD (gastroesophageal reflux disease) GI bleed Hyperlipidemia Hypertension Leukocytosis Metabolic bone disease Multiple drug resistant organism (MDRO) culture positive Non healing left heel wound Obesity Osteoarthrosis Osteomyelitis of both feet ([facility]) PAD (peripheral artery disease) ([facility]) Primary osteoarthritis of knee Proteinuria Renal osteodystrophy Restless legs syndrome (RLS) no meds, lyrica helps Septic joint of left knee joint ([facility]) Sleep apnea BiPap Smoker Stage 3a chronic kidney disease (CKD) ([facility]) PAST SURGICAL HISTORY: Past Surgical History: Procedure Laterality Date AMPUTATION Right 2017 TMA AORTOGRAM- ABDOMINAL Left 09/15/2024 Procedure: LEFT LOWER EXTREMITY ANGIOGRAM; Surgeon: Delbert Mcintosh MD; Location: Main OR; Service: Peripheral Vascular; Laterality: Left; BARIATRIC SURGERY 2018 CARDIAC ELECTROPHYSIOLOGY STUDY AND ABLATION x5 CARDIAC PACEMAKER PLACEMENT 2016 CARDIAC SURGERY 2020 watchman device CARDIOVERSION 07/2024 CC PERIPHERAL ANGIOGRAPHY Left 07/2024 LE CHANGE DRESSING WOUND VAC Left 09/10/2024 Procedure: APPLICATION OF WOUND VAC; Surgeon: Dallas Camejo MD; Location: [facility] OR; Service: Orthopaedics; Laterality: Left; FOOT SURGERY Right x5 INCISION AND DRAINAGE FOOT Left OH PROCEDURE MAZE AFIB OSTECTOMY CALCANEOUS Left 09/10/2024 Procedure: ANKLE PARTIAL CALCANECTOMY; Surgeon: Dallas Camejo MD; Location: [facility]; Service: Orthopaedics; Laterality: Left; wOUND PARTIALLY CLOSED SUPERFICIALLY, WOUND VAC PLACED TOTAL KNEE ARTHROPLASTY Left 2016 REVISION SAME YEAR/INFECTION FAMILY HISTORY: No family history on file. SOCIAL HISTORY: Social History Socioeconomic History Marital status: Single Spouse name: Not on file Number of children: Not on file Years of education: Not on file Highest education level: Not on file Occupational History Not on file Tobacco Use Smoking status: Former Current packs/day: 1.00 Average packs/day: 1 pack/day for 29.1 years (29.1 ttl pk-yrs) Types: Cigarettes Start date: 1976 Quit date: 2003 Smokeless tobacco: Never Substance and Sexual Activity Alcohol use: Yes Alcohol/week: 21.0 standard drinks of alcohol Types: 21 Cans of beer per week Drug use: Never Sexual activity: Not on file Other Topics Concern Not on file Social History Narrative Not on file Social Determinants of Health Financial Resource Strain: Low Risk (09/10/2024) Overall Financial Resource Strain (CARDIA) Difficulty of Paying Living Expenses: Not hard at all Food Insecurity: No Food Insecurity (09/10/2024) Hunger Vital Sign Worried About Running Out of Food in the Last Year: Never true Ran Out of Food in the Last Year: Never true Transportation Needs: No Transportation Needs (09/10/2024) PRAPARE - Transportation Lack of Transportation (Medical): No Lack of Transportation (Non-Medical): No Physical Activity: Not on file Stress: Not on file Social Connections: Not on file Housing Stability: Low Risk (09/10/2024) Housing Stability Vital Sign Unable to Pay for Housing in the Last Year: No Number of Times Moved in the Last Year: 1 Homeless in the Last Year: No OBJECTIVE PHYSICAL EXAMINATION: Vitals: 11/02/24 1825 11/02/24 2116 11/03/24 0416 11/03/24 0626 BP: (!) 147/66 (!) 143/66 135/63 BP Location: Right arm Left arm Left arm Patient Position: Sitting Lying Lying Pulse: 86 74 73 Resp: 13 17 18 Temp: (!) 101.7 ??F (38.7 ??C) 100.1 ??F (37.8 ??C) (!) 102 ??F (38.9 ??C) 98.6 ??F (37 ??C) TempSrc: Tympanic Tympanic Tympanic Tympanic SpO2: 94% 93% 93% Weight: 120 kg (264 lb 8 oz) Intake/Output Summary (Last 24 hours) at 11/03/2024 0821 Last data filed at 11/03/2024 0800 Gross per 24 hour Intake 843 ml Output -- Net 843 ml General appearance- Alert, NAD HEENT- Anicteric sclera, no oral lesions CV- normal S1 and S2 Pacemaker in place Chest- CTAB, no increased WOB Abdomen- soft, NT/ND, normal bowel sounds - no suprapubic tenderness, no CVA tenderness MSK-right foot TMA. Plantar aspect chronic callused wound without any signs of infection Left foot/heel: Dressing in place. Pictures reviewed DEVICE TIME OUT Peripheral IV - Single Lumen (Adult) 11/02/24 2204 cephalic vein (lateral side of arm), right 22 gauge;1 in length (Active) Number of days: 1 Of note, some information is being carried forward from prior records for informational purposes only and is being cited so that efficiency, safety and quality of this patient's care is not compromised. This report was generated using [employer] Speaking dictation software. Although every attempt has been made by the provider to proofread this document, occasional misspellings and typographical errors may still be present. documented in this encounter Miscellaneous Notes * Plan of Care - Mitesh Caldwell RN - 11/25/2024 7:51 PM EST Patient being discharged home with home services. Patient has a proline and will require manager long term care antibiotics. [facility] educated patient on home devices. Patient was not happy with having to waitfor the ambulance so he requested we cancel it and he had his son come pick him up. AVS instructions, medication regiment, and follow up care reviewed with patient. All questions answered at bedside.Patient belongings gathered at bedside and taken home with patient. Transport home arranged by son in a private vehicle. Mitesh Caldwell 11/25/2024 8:32 PM * Plan of Care - Marisel Wray RN - 11/25/2024 3:35 AM EST Patient offered no complaints overnight, Vpace on tele, vitals stable, continues on IV Abx, call ling within reach, safety precaution maintained. Marisel Wray 11/25/2024 3:35 AM * Plan of Care - Page Montemayor RN - 11/24/2024 8:13 PM EST Problem: Adult Inpatient Plan of Care Goal: Plan of Care Review 11/24/20242011 by Page Montemayor RN Flowsheets (Taken 11/24/20242011) Outcome Evaluation: Blas offered no complaints during the day. IV ABX continue per orders. Pt expressing desire to go home with care versus to SNF - case coordination aware. Call ling within reach, safety maintained. Page Montemayor 11/24/2024 8:13 PM * Plan of Care - Telma Aguilar RD - 11/24/2024 12:27 PM EST [facility] Nutrition Note Visit Type: follow up assessment Reason for Dietitian/DTR Visit: at nutrition risk. Reason for Admission: Acute osteomyelitis of left calcaneus (HCC) Pertinent Medical History: Past Medical History: Diagnosis Date A-fib (HCC) Acute osteomyelitis (HCC) Atrial flutter (HCC) Cardiac pacemaker 2016 Carotid atherosclerosis Charcot's joint of right foot 2015 Chronic sciatica Complete AV block (HCC) Diabetes mellitus (HCC) TYPE II Diabetic foot ulcer (HCC) ED (erectile dysfunction) Edema ESBL (extended spectrum beta-lactamase) producing bacteria infection GERD (gastroesophageal reflux disease) GI bleed Hyperlipidemia Hypertension Leukocytosis Metabolic bone disease Multiple drug resistant organism (MDRO) culture positive Non healing left heel wound Obesity Osteoarthrosis Osteomyelitis of both feet (HCC) PAD (peripheral artery disease) Primary osteoarthritis of knee Proteinuria Renal osteodystrophy Restless legs syndrome (RLS) no meds, lyrica helps Septic joint of left knee joint (HCC) Sleep apnea BiPap Smoker Stage 3a chronic kidney disease (CKD) ([facility]) Nutrition Diagnosis: Intake: Inadequate oral intake (protein) related to clinical course as evidenced by on/off NPO status; not meeting estimated needs Diagnosis Status: no longer appropriate Intake: Increased nutrient needs (specify) related to wound healing as evidenced by s/p left BKA Interventions/Recommendations: Food & Nutrient Delivery: Modify diet to 75gCHO to best meet nutrient needs Modify Ensure Max (allison) TID Document po intakes in flowsheets Monitor POC glu- adjust insulin prn Weekly Weights Nutrition Education/Counseling: Learner: patient Readiness: acceptance Method: Explanation Topics: Oral Nutrition Supplement Use Response: verbalizes understanding Comprehension: Good Barriers to Education: None noted at this time. Coordination of Nutrition Care: ONS and diet to be adjusted [facility] Nutrition Assessment: Nutrition following. Intakes at meals continue to be optimal at 100%. ONS in place. He prefers highprotein ONS, will adjust to all meals per request. Noted BS have been WDL. Will modify diet as above to best meet nutrient needs at this time. Noted D/C pending placement at the hospital for special care. Typical Food & Fluid Intake: Patient reports good appetite and intake lpta. He typically has an egg sandwich for breakfast and a protein shake (like muscle milk), for lunch he has a egg or chicken salad sandwich and a protein drink, and dinner typically is a protein/starch/vegetable. Food Related Allergies: NKFA Cultural/Ethnic Preferences: Pt/Family deny. Food Insecurity Concerns: Never true Weight: Weights (last 5 days) Date/Time Weight Scale 11/24/24 0600 98.3 kg (216 lb 11.4 oz) standing 11/23/24 0511 98.6 kg (217 lb 6 oz) bed 11/22/24 0600 101 kg (222 lb 7.1 oz) bed 11/21/24 0600 97.9 kg (215 lb 14.4 oz) bed 11/20/24 0555 99 kg (218 lb 4.1 oz) bed 11/19/24 0500 99.3 kg (218 lb 14.7 oz) bed Nutrition Physical Findings: Physical Appearance: amputee (L BKA) Gastrointestinal: (last BM 11/24) Skin: other (see comments) (surgical incision to left leg) Wound Documentation Reviewed: yes Labs: BUN 35, Cr 1.6, eGFR 48, POC glu 84-151 x 24hrs Medications: insulin, jardiance, calcitriol, ABx, B12, folic acid, thiamine, senna Estimated Daily Energy and Protein Needs: Energy Needs: 2080 - 2600 Kcals/day (20 - 25 Kcals/kg) based on 104 kg (229 lb 4.5 oz) (reported dry weight) Protein Needs: 117 - 141 gm, (1.5 - 1.8g/kg) based on 78.1 kg (172 lb 2.9 oz) (Adjusted IBW) Fluids: 2500ml Estimated/Assessed Carbohydrates Needs: 75 g CHO/meal Current Diet: Aspiration precautions Diet Cardiac; Carb Counting 60g/meal 7375-4840 kcal; 2 gm NA (Low Sodium); Low Fat (50gmfat, Low Chol, Low Sat Fat) Patient to receive supplements: specific meal/ supplement; Supplements with: Breakfast; Order: Ensure Max Protein, Chocolate, 11 oz; Supplements with: Lunch; Order: Ensure Max Protein, Chocolate, 11 oz; Supplements with: Dinner; Order: Ensure Max ... Intake Compared to Estimated Needs: Energy Intake: meeting needs x 7 days Protein Intake: meeting needs x 7 days Fluid Intake: other (see comments) (1080mL) x 24hrs per I/Os Tolerance: yes Monitoring & Evaluation: Goals to be achieved by next assessment: PO intakes 75% or greater at meals Monitoring/Evaluation: RD/DTR will monitor and evaluate nutrition plan of care and provide additional interventions and recommendations based on nutrition/clinical status. Sign: Telma Aguilar RD 11/24/2024 12:32 PM * Plan of Care - Marisel Wray RN - 11/24/2024 5:20 AM EST Patient offered no complains overnight, Vpace on tele, vitals stable, continues on IV abx, Awaitingfor bed to be available at inpatient rehab for nursing home antibiotics. Call ling within reach, safety precautions maintained. Marisel Wray 11/24/2024 5:20 AM * Plan of Care - Nelson Iqbal RN - 11/23/2024 7:15 PM EST Problem: Adult Inpatient Plan of Care Goal: Plan of Care Review Flowsheets (Taken 11/23/20241913) Plan of Care Reviewed With: patient Progress: no change Outcome Evaluation: Pt offered no complaints throughout shift. IV antibiotics continue. Pending placement at the [facility] for special care for d/c. Call ling within reach, safety precautions maintained. Nelson Iqbal 11/23/2024 7:15 PM * Plan of Care - Ellyn Patel RN - 11/23/2024 8:07 AM EST Plan of Care Reviewed With: patient Outcome Evaluation: Patient without complaints during the shift. Sleep study completed on room air.Plan is for discharge to inpatient rehab for nursing home antibiotics when bed is available. Ellyn Patel 11/23/2024 8:07 AM * Plan of Care - Nelson Iqbal RN - 11/22/2024 8:26 PM EST Problem: Adult Inpatient Plan of Care Goal: Plan of Care Review Flowsheets (Taken 11/22/20242025) Plan of Care Reviewed With: patient Progress: no change Outcome Evaluation: Pt offered no complaints today. Vpaced on tele. Plan for sleep oximetry screen tonight. Call ling within reach, safety precautions maintained. Nelson Iqbal 11/22/2024 8:26 PM * Plan of Care - Tonya White RN - 11/22/2024 12:30 PM EST Case Management Care Plan Note Summary: Per clinical progression rounds with the bedside RN and provider, and ongoing continuing care assessment, patient is not yet clinically stable for transition. Patient awaiting PPM interrogation and sleep oximetry test. At this time transition plan remains for patient to be discharged to Acute Rehab when medically stable. CC will continue to follow for readiness to transition. Recommendation: Anticipate transition to Acute rehab when medically stable. * Plan of Care - Ellyn Patel RN - 11/22/2024 5:24 AM EST Plan of Care Reviewed With: patient Outcome Evaluation: Blas is alert and oriented. No complaints of discomfort overnite. Vpace on monitor. Plan is for discharge to rehab for IV antibiotics. Ellyn Patel 11/22/2024 5:24 AM * Plan of Care - Marisel Wray RN - 11/21/2024 6:34 PM EST Problem: Adult Inpatient Plan of Care Goal: Plan of Care Review Outcome: Progressing Flowsheets (Taken 11/21/2024 1833) Outcome Evaluation: Patient offered no complaints today, VPace on tele, vitals stable, continues onIV abx per NOV, call ling within reach, safety precautions maintained. Marisel Wray 11/21/2024 6:34 PM * Plan of Care - Nelson Iqbal RN - 11/21/2024 5:21 AM EST Problem: Adult Inpatient Plan of Care Goal: Plan of Care Review Flowsheets (Taken 11/21/2024 0519) Plan of Care Reviewed With: patient Progress: no change Outcome Evaluation: Pt offered no complaints overnight. Vpaced on tele. Plan to restart GDMT medications depending on Cr. Call ling within reach, safety precautions maintained. Nelson Iqbal 11/21/2024 5:21 AM * Plan of Care - Marisel Wray RN - 11/20/2024 6:14 PM EST Problem: Adult Inpatient Plan of Care Goal: Plan of Care Review Outcome: Progressing Flowsheets (Taken 11/20/2024 1814) Outcome Evaluation: Patient offered no complaints today, Vpace on tele, vitals stable, continues onIV abx per MAR, call ling within reach, safety precautions maintained. Marisel Wray 11/20/2024 6:14 PM * Plan of Care - Nelson Iqbal RN - 11/20/2024 6:07 AM EST Problem: Adult Inpatient Plan of Care Goal: Plan of Care Review Flowsheets (Taken 11/20/2024 0559) Plan of Care Reviewed With: patient Progress: no change Outcome Evaluation: No acute changes overnight. Proline CDI. Call ling within reach, safety precautions maintained. Nelson Iqbal 11/20/2024 6:07 AM * Plan of Care - Rianna Kaplan RN - 11/19/2024 8:41 PM EST Plan of Care Reviewed With: patient Progress: no change Outcome Evaluation: Patient with some pain today and medicated per MAR with good relief. PICC line placed via IR this shift. UA sent. NWB to LL extremity. Safety maintained. Rianna Kaplan 11/19/2024 8:41 PM * Plan of Care - Hansa Navarro RN - 11/19/2024 2:45 AM EST Problem: Adult Inpatient Plan of Care Goal: Plan of Care Review Outcome: Progressing Vpaced on werqaim-Vrvlpoqk-[id number] on IV Cubicin andIV Rocephin-Plan for PICC placement ?today for manager long term care anti-Bx's-see flowsheet for full assessment/vs Hansa Navarro 11/19/2024 2:45 AM * Plan of Care - Marisel Wray RN - 11/18/2024 7:54 PM EST Patient offered complaint left chest incision pain, Medicated per MAR with good effect, Vpace on tele, vitals stable, plan is for the patient to have a PICC line place tomorrow, call ling within reach, safety precaution maintained. Marisel Wray 11/18/2024 7:54 PM * Plan of Care - Tonya White RN - 11/18/2024 10:26 AM EST Case Management Care Plan Note Summary: Per clinical progression rounds with the bedside RN and provider, and ongoing continuing care assessment, patient is not yet clinically stable for transition. Mr. Genao is POD#1 s/p dual pacemaker system extraction for polymicrobial bacteremia including enterococcus and MRSA and implantof a AV Micra PM with Dr. Pabon.Continues on IV abx. At this time transition plan remains for patient to be discharged to Acute rehab when medically stable. CC will continue to follow for readiness to transition. Recommendation: Anticipate transition to Acute rehab when medically stable. * Plan of Care - Shante Mohamud RN - 11/18/2024 8:17 AM EST Problem: Adult Inpatient Plan of Care Goal: Plan of Care Review Outcome: Not Progressing Flowsheets (Taken 11/18/2024 0815) Plan of Care Reviewed With: patient Progress: no change Outcome Evaluation: Patient offered some complaints of pain at left chest incision site this morning, scheduled Tylenol given with little effect, PRN Dilaudid given per NOV. Patient sleeping intermittently over night with CPAP. Bilateral groin sites remain CDI. Contact precautions maintained. Patient safety maintained. * Plan of Care - Eunice Castillo RN - 11/17/2024 7:59 PM EST Plan of Care Reviewed With: patient Progress: improving Outcome Evaluation: Pt admitted to floor at 1845 from EP. Oriented to room. BL groin sites w tag & gauze, CDI. AxO4, V-paced on tele. Contact isolation continues per protocol. Pt offers no c/o atthis time. Safety maintained, call light within reach. Eunice Castillo 11/17/2024 7:59 PM * Op Note - Rui Pabon MD - 11/17/2024 3:00 PM EST Images from the original note were not included. [address] [id number] OPERATIVE REPORT Patient Name: Blas Genao Date of : 1960 Date of Procedure: 11/17/2024 Surgeons and Role: * Rui Pabon MD - Primary * Corbin Lamb APRN - Physician Medical Sales Specialist Pre-op Diagnosis: Pacemaker infection, subsequent encounter [T82.7XXD] Post-Op Diagnosis Codes: * Pacemaker infection, subsequent encounter [T82.7XXD] Details of Procedure Procedure(s): Extraction lead(s) laser from dual PM system; 45155 Micra Leadless Pacemaker Insert/Replacement; 38674 Additional Procedures Surgeon: Rui Pabon MD Medical Sales Specialist: : : Corbin Lamb APRN Anesthesia: Monitor Anesthesia Care Indications: Bacteremia; pacemaker device infection; complete heart block Description of Procedure: After informed consent patient was brought to the OR in the fasting state. He was positioned appropriate on the table. Timeout was then performed. After timeout was completed and the plan reviewed hewas then intubated by anesthesia. He was maintained under general anesthesia for the remainder of the procedure. Intraoperative TATIANNA was used to visualize cardiac structures. Radial A-line was placed for hemodynamic monitoring. He was then prepped and draped in sterile fashion from clavicle to mid thigh. Using ultrasound-guided Seldinger technique right femoral venous access was obtained. A 12 Micronesian sheath was placed in the right femoral vein. Through this an Amplatz stiff wire was advanced under fluoroscopic visualization to the right IJ. Using ultrasound-guided Seldinger technique left femoral venous access was obtained. 8 Micronesian sheath was placed in left femoral vein. Through this a steerable quadripolar catheter was advanced under fluoroscopic visualization to the right ventricle and positioned in the right ventricle. Threshold testing was performed with excellent threshold. The output was set high. 20 cc 1% lidocaine was then used to achieve anesthesia at the site of the pacemaker. An incision was made over the pacemaker generator and dissected down to the generator. Generator was mobilized and removed from the pocket. Portions of the capsule were dissected free. Leads were dissected free to the sewing rings. With the temporary wire in place both right atrial right ventricular leads were disconnected from the generator as the patient is pacer dependent. Sutures were cut on both sewing rings. The sewing rings were pulled back. Active-fixation mechanisms on both [id number] active-fixation leads were retracted. Leads were cut. EZ interlocking stylette's were placed down both right atrial right ventricular leads and deployed. External silk sutures were used for additional support. We then began with a 14 Micronesian laser sheath. Under fluoroscopic visualization we started with the right ventricular lead. 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 We were able to progressto the innominate area. Here we reached the innominate region and had significant fibrosis. We then remove the 14 Micronesian laser sheath and moved to the right atrial lead. Advancing over the right atrial lead under fluoroscopy we were able to laser in the subclavian region and make progress. Again wehad the innominate. Here we used the laser gently as a dissecting tool and not in the laser mode. We able to make further advancement through this region. At this point with gentle countertraction the right atrial lead did come off the atrium. We are able to pull the lead out completely. We then went back to the right ventricular lead. We advanced an active laser mode to the innominate. Here we again used the laser sheath as a mechanical dissector and were able to move through fibrosis in this region. Manual traction resulted in complete removal. Fluoroscopic and visual inspection confirmed complete removal. A UR 6 absorbable suture was placed around the access site. Hemostasis was achieved. Pocket was copiously irrigated. The incision was closed in 2 layers. Initial layers of 3 oh V-Loc followed by a 4 oh V-Loc tendon subcuticular running mattress format. Steri-Strips applied to the incision. Island dressing applied to the wound. We then used the right femoral venous 12 Micronesian sheath and Amplatz wire which was in place. We usedthe Amplatz wire and performed sequential dilation at the access site. After completing this we advanced the micro sheath under fluoroscopy to the right atrium. Sheath was then cleared. 3000 units ofheparin given. The Micra delivery system was then prepped and advanced through the sheath into the right atrium. We then crossed into the right ventricle positioning on the septum. ADAME and APOLINAR position confirmed our placement.We did an initial deployment here. Sensing of paced R wave was 12 mV. Device impedance was 520 ohms. Threshold was initially 1.5 V that decreased to 1.2 V. However remained at 1.2 V at 0.24 ms. We therefore retrieved the device back into the deploying sheath. We then movedthe device slightly superior. ADAME and APOLINAR position to confirm septal position. Initial testing hereshowed a threshold of 0.88 V at 0.24 ms. The lead impedance was 680 ohms. The sensed R wave paced was 17 mV. Tug test was performed under seen a year. We 3 spines move clearly. Retrieval suture was then cut and removed. There was no visible movement of the device. Post suture removal interrogation was performed. Lead impedance was 630 ohms. Threshold was 0.75 V at 0.24 ms. Sensing was excellent for ventricular paced QRS. We felt this was a good stable position. The tethering suture was removed and the delivery system was then removed. Again interrogation of the device showed excellent parameters. Z stitch was placed at the micra sheath insertion site. Sheath was removed and the Z stitch tied off. Manual pressure was held for 15 minutes as well. The temporary pacing wire was removed under f luoroscopic visualization. Z stitch was placed around the 8 Micronesian sheath as well and the sheath was removed. Manual pressure was also used to achieve hemostasis. Intraoperative TATIANNA revealed no pericardial effusion. No significant tricuspid regurgitation was noted. The new AV Micra was tracking hisatrium nicely. He was then extubated and transferred to recovery in good condition. Complications: none Operative Findings: N/A Total Fluids: see anesthesia note Drains: None Estimated Blood Loss: 5 ml Blood Transfusion: none Implants: Implant Name Type Inv. Item Serial No. Calender Operator Helper Lot No. LRB No. Used Action [id number] PACEMAKER CARDIAC MICRA AV2 LDLS BNDL - [id number] Pacemaker [id number] PACEMAKER CARDIAC MICRA AV2 LDLS BN [id number] [employer] Left 1 Implanted Specimens: Dual-chamber pacemaker generator; chronic right atrial 5076 active- fixation Medtronic lead; chronic right ventricular 5076 active-fixation Medtronic lead; 2 sewing rings. Disposition: PACU Condition:Good Rui Pabon MD Date: 11/17/2024 Cc: Lee Fabian MD * Plan of Care - Telma Aguilar, RD - 11/17/2024 10:19 AM EST [facility] Nutrition Note Visit Type: follow up assessment Reason for Dietitian/DTR Visit: at nutrition risk. Reason for Admission: Acute osteomyelitis of left calcaneus (HCC) Pertinent Medical History: Past Medical History: Diagnosis Date A-fib (HCC) Acute osteomyelitis (HCC) Atrial flutter (HCC) Cardiac pacemaker 2016 Carotid atherosclerosis Charcot's joint of right foot 2015 Chronic sciatica Complete AV block (HCC) Diabetes mellitus (HCC) TYPE II Diabetic foot ulcer (HCC) ED (erectile dysfunction) Edema ESBL (extended spectrum beta-lactamase) producing bacteria infection GERD (gastroesophageal reflux disease) GI bleed Hyperlipidemia Hypertension Leukocytosis Metabolic bone disease Multiple drug resistant organism (MDRO) culture positive Non healing left heel wound Obesity Osteoarthrosis Osteomyelitis of both feet (HCC) PAD (peripheral artery disease) Primary osteoarthritis of knee Proteinuria Renal osteodystrophy Restless legs syndrome (RLS) no meds, lyrica helps Septic joint of left knee joint (HCC) Sleep apnea BiPap Smoker Stage 3a chronic kidney disease (CKD) (HCC) Nutrition Diagnosis: Intake: Inadequate oral intake (protein) related to clinical course as evidenced by on/off NPO status; not meeting estimated needs Diagnosis Status: improvement shown/unresolved (diet advanced with 75-100% intakes, NPO for procedure). Interventions/Recommendations: Food & Nutrient Delivery: Resume 75gCHO diet once medically feasible- double protein portions Modify Ensure Max (allison) to breakfast, Glucerna (allison) BID Document po intakes in flowsheets Monitor POC glu- adjust insulin prn Weekly Weights Nutrition Education/Counseling: Learner: patient Readiness: acceptance Method: Explanation Topics: Increased Protein , Oral Nutrition Supplement Use Response: verbalizes understanding Comprehension: Good Barriers to Education: None noted at this time. Coordination of Nutrition Care: ONS adjusted Nutrition Plan for Discharge/Transfer: CCHO diet with ONS/high protein sources daily Nutrition Assessment: PO intakes have been optimal while diet in place (75-100%). NPO today for pacemaker extraction. Patient reports appetite has been good and has been consuming ONS consistently. He verbalized need for higher protein with meals to help with healing. Previous plan for hard boiled eggs with meals, unfortunately given egg shortage will instead plan for double protein portions once diet resumed. Patient also requesting to switch low carb ONS to breakfast to allow for greater carb selection formeal and have other ONS for dinner. Will plan to adjust per request. Typical Food & Fluid Intake: Patient reports good appetite and intake lpta. He typically has an egg sandwich for breakfast and a protein shake (like muscle milk), for lunch he has a egg or chicken salad sandwich and a protein drink, and dinner typically is a protein/starch/vegetable. Food Related Allergies: NKFA Cultural/Ethnic Preferences: None noted/reported. Food Insecurity Concerns: Never true Weight: Weights (last 10 days) None Nutrition Physical Findings: Physical Appearance: obese, amputee, on oxygen therapy (L BKA) Gastrointestinal: (last BM 11/16) Skin: edema (1+ edema) Wound Documentation Reviewed: yes Labs: Na 128, BUN 54, Cr 1.8, eGFR 42 Medications: insulin, vitamin D, folic acid, B12, MVI w/ minerals, protonix Estimated Daily Energy and Protein Needs: Energy Needs: [place]: RMR ([place]-St. Jeor Equation): 1920.63 [place]-St. Jeor (Considerations): 1734-8106 kcal (MSJ +1.2-1.3) based on 104 kg (229 lb 4.5 oz) (reported dry weight) Protein Needs: 117 - 141 gm, (1.5 - 1.8g/kg) based on 78.1 kg (172 lb 2.9 oz) (Adjusted IBW) Fluids: 2500ml Estimated/Assessed Carbohydrates Needs: 75 g CHO/meal Current Diet: Patient to receive supplements: specific meal/ supplement; Supplements with: Breakfast; Order: Glucerna Therapeutic Shake, Chocolate, 8 oz; Supplements with: Lunch; Order: Glucerna Therapeutic Shake,Chocolate, 8 oz; Supplements with: Dinner; Orde... Aspiration precautions Diet NPO; Meds Intake Compared to Estimated Needs: Energy Intake: meeting needs x 7 days Protein Intake: meeting needs x 7 days Fluid Intake: other (see comments) (487mL) x 24hrs per I/Os Tolerance: yes Monitoring & Evaluation: Goals to be achieved by next assessment: PO intakes 75% or greater at meals Monitoring/Evaluation: RD/DTR will monitor and evaluate nutrition plan of care and provide additional interventions and recommendations based on nutrition/clinical status. Sign: Telma Aguilar RD 11/17/2024 10:19 AM * Plan of Care - Kelsea Truong RN - 11/17/2024 6:56 AM EST Pt AO x4. PRN PO dilaudid given for L phantom limb pain. Satting well on RA. CPAP overnight. Continues on tele & pulse ox. Up in recliner prior to bedtime. R foot dressing changed. Pt able to make needs known. NPO at MN for pacemaker extraction. Placed on 1L NC around 0330 for desatting to mid 80s. Bedside urinal within reach. Precautions maintained. Kelsea Truong 11/17/2024 6:56 AM * Plan of Care - Benjie Paris RN - 11/16/2024 7:53 PM EST Plan of Care Reviewed With: patient Progress: improving Outcome Evaluation: Assumed care 1 pm -7 pm. Patient alert and O x 4. Breathing easy on 2 L of oxygen via nasal cannula. Dilaudid given for leg pain with good effects.Transferred to bedside chair. IVantibotic given. Belongings within reach. Benjie Paris 11/16/2024 7:53 PM * Plan of Care - Fátima Ramos MD - 11/16/2024 4:35 PM EST Neurology Plan of Care As per primary team to evaluate for remittent tremors that have been present for the past week. MRIbrain reviewed independently and there does not seem to be any acute intracranial abnormality. Uponchart review the patient is on Lyrica and Wellbutrin. Wellbutrin seems to be relatively new medication started in April 2024. Advised the primary team to weigh the risk and benefits with the patientregarding stopping Wellbutrin or Lyrica to alleviate the tremors. The patient can be referred to outpatient neurology for evaluation of the tremors. Discussed with Dr. Daniel Ramos MD Neurology PGY-2 [facility] * Hospital Course - Gianluca Calles MD - 11/16/2024 4:10 PM EST This is a 63-year-old male with past medical history of a flutter/A-fib s/p Watchman procedure, AV block s/p PPM, chronic diastolic heart failure, hypertension, hyperlipidemia, MERVIN on CPAP, CKD stageIII, PAD/PVD who presented as direct admit with plans for left 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 s/p calcaneal ostectomy on 08/2024 with wound VAC placement. Patient underwent left BKA on 11/05. Left foot wound grew MRSA, Enterococcus faecalis, VRE, chronic bacterium species and gram-negative bacilli. Hospital course further complicated with MRSA and VRE/Enterococcus faecalis/VCM bacteremia and cardiology was consulted. 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 He developed acute hypoxic respiratory failure secondary to CHF exacerbation and was transferred to medical stepdown unit for further management. In the stepdown, he was aggressively diuresed with Bumex drip and was weaned down on supplemental oxygen. He had a central line placed.EP consulted for possible infected pacer wire. O2 requirements improved and patient no longer requiring rescue BiPAP, satting well on 6LNC. MRI brain ordered to eval for septic emboli and patient reported tremor. Continued on diuresis. Initially held off on TATIANNA again due to anesthesia recommending more diuresis and optimizing respiratory status prior to procedure. ID discontinued aztreonam. Patient aggressively diuresed with large amount of urine output, CXR with improving bilateral congestion,proBNP downtrending, and O2 weaned to 3L NC. Patient went for TATIANNA in PM of 11/11 and was transferredto floor with telemetry after the procedure. On the medical floor, patient remains on IV antibiotic daptomycin, ceftaroline has been discontinued. MRI brain did not reveal any septic emboli. EP recommending pacemaker removal which she had on 11/17 with an implant of a AV Micra PM.. Echocardiogram showed EF of 45% which is similar to echo last year. For acute CHF, cardiology continued to follow and patient was continued on Bumex drip later switched to Bumex 1 Mg IV twice daily, further titrated down to p.o. Bumex 2 mg daily which she is stable on now. Nephrology also were consulted in the setting of TABITHA on CKD and they recommended resuming current management as his creatinine is going down close to his baseline. Pro line was placed on 11/19 as we were not able to place PICC line per nephrology recommendations. Plan to discharge on IV daptomycin and Rocephin till December 28 and repeat TATIANNA as outpatient to follow-up on endocarditis per IDrecommendations. ID recommendations: Daptomycin 975 mg IV every 24 hours through December 28, 2024 Ceftriaxone 2 gram IV every 24 hours through December 28, 2024 CBC, LFTs, creatinine with EGFR, CK, ESR, CRP once a week while on IV antibiotics. Fax results to [phone]. Patient will need to be scheduled for repeat TATIANNA end of November * Plan of Care - Jossie Shah RN - 11/16/2024 3:21 PM EST Assumed care of pt from 11:00-1430: Pt A/Ox4. Denies pain/discomfort. Plan for NPO at midnight for pacemaker extraction tomorrow. Report given to JOSUE Waldrop. Jossie Shah 11/16/2024 3:21 PM * Plan of Care - Kelsea Truong RN - 11/16/2024 6:09 AM EST Pt AO x4. PRN PO dilaudid given for L phantom limb pain. Weaned to 3L NC. CPAP overnight. Continueson tele & pulse ox. Up in recliner prior to bedtime. Pt able to make needs known. Bedside urinal within reach. Output recorded. Precautions maintained. Kelsea Truong 11/16/2024 6:09 AM * Plan of Care - Brennen Dey RN - 11/15/2024 6:19 PM EST Pt A&Ox4. VSS. IV abx continued. Pt able to make needs known. Purposeful rounding completed. Brennen Dey 11/15/2024 6:19 PM * Provider Documentation Query - Fredi Powers MD - 11/15/2024 6:53 AM EST Provider Documentation Clarification: Please document on query form within 24 hours. The medical record reflects: Right Foot Plantar Pressure Ulcer Documented clinical findings: 11/11 Physical Medicine Consult Wound consult placed due to pressure ulcer on plantar aspect of R foot. 11/22 Wound RN Consult Known DFU to R plantar foot, typically followed by wound center/heel padder outpatient near patient's home. Had been using medihoney to area previously. Currently dry intact adhered thick scab, no drainage.Periwound with dry skin but otherwise intact. Please provide additional clinical support to confirm this diagnosis, including stage. OR Please document in the medical record that Right Foot Plantar Pressure Ulcer has been ruled out. [Please use F2 to respond] Please state your medical judgment below. Diagnosis confirmed. Relevant clinical indicators for the diagnosis include wound on plantar surface, stage II This documentation will become a permanent part of the patient's legal medical record Please continue to document your clinical opinion in the progress notes and summarize at discharge summary. Tracy Lopez RN, CDS [phone] * Plan of Care - Eunice Khan RN - 11/14/2024 9:16 PM EST Problem: Adult Inpatient Plan of Care Goal: Plan of Care Review Outcome: Progressing Flowsheets (Taken 11/14/20242114) Plan of Care Reviewed With: patient Progress: no change Outcome Evaluation: pt a/o x4. 5L NC. pain meds given with good effect. legs elevated. bed alarm onand safety maintained. makes needs known * Plan of Care - Jessica Tracey RN - 11/14/2024 7:17 PM EST A & o x 4, on 5L via n/c, able to make needs known, continues on abx, meds given as ordered. Ptdid not complain of pain or discomfort, insulin coverage given per sliding scale, contact precaution maintain, urinal at bedside, left leg BKA orthosis brace in place, plan of care followed, call ling within reach, safety maintained. Jessica Tracey 11/14/2024 7:17 PM * Plan of Care - Lucrecia Bartlett RN - 11/14/2024 1:15 PM EST Case Management Care Plan Note Summary: Per clinical progression rounds with the bedside RN and provider, and ongoing continuing care assessment, patient is not yet clinically stable for transition. Patient pending pacermaker extraction and insertion, continues with diuresis. At this time transition plan remains for patient to be discharged home vs acute vs snf when medically stable. CC will continue to follow for readiness totransition. Recommendation: Anticipate transition home vs snf vs acute when medically stable. Lucrecia Bartlett 11/14/2024 1:15 PM * Plan of Care - Valentin Pichardo RN - 11/14/2024 7:42 AM EST Patient is AAOx4. Makes needs known. Medicated per MAR for pain. Good effect noted. VSS. Afebrile. Voiding without difficulty. Bumex gtt maintained. 4L O2 via NC intact. NSR with intermittent prolonged QT noted on tele. Safety and comfort maintained. Call ling within reach. Valentin Pichardo 11/14/2024 7:42 AM * Plan of Care - Brennen Dey RN - 11/13/2024 6:31 PM EST Pt A&Ox4. VSS. IV abx continued. Continuous bumex at 4ml/hr continued. Contact precauts continued. Pt able to make needs known. Purposeful rounding completed. Brennen Dey 11/13/2024 6:31 PM * Plan of Care - Charles Traylor RN - 11/13/2024 6:58 AM EST Plan of Care Reviewed With: patient Progress: no change Outcome Evaluation: Pt alert and oriented x4. VSS on 5L NC. BiPAP at night. Needs attended. Pain meds given with god effect. Safety maintained. Charles Traylor 11/13/2024 6:58 AM * Plan of Care - Ara Miner RN - 11/12/2024 5:35 PM EST Plan of Care Reviewed With: patient Progress: improving Outcome Evaluation: Pt. alert and oriented x4. Administered medication as ordered. Pt went for MRI today. Results pending. No signs of respiratory distress during shift. No complaints of pain/discomfort. Continues on bumex drips. No signs of hyperglycemia. Able to voice needs. Safety maintained. Ara Miner 11/12/2024 5:35 PM * Plan of Care - Timo Keita MD - 11/12/2024 11:10 AM EST 63 y.o.male with PMHx of HTN, HLD, DM 2, CKD stage III, PAD, ESBL infection, diabetic foot infection/osteomyelitis s/p right TMA, left calcaneal osteomyelitis, complete heart block s/p dual-chamber pacemaker placement 2016 and persistent atrial fibrillation/flutter with multiple ablations and cardio versions, s/p Watchman device placement in 2018 who is admitted with Enterococcus faecalis and MRSAbacteremia, now s/p left BKA. EP was consulted for concern for infective endocarditis of mitral valve and seeding of pacer leads. Pt is now s/p TATIANNA on 11/11 which revealed a small mobile echodensity posterior to the mitral valve annulus, adjacent to the watchman device. Pt has also clinically improved. Tentative plan for device extraction and Micra implantation next week, timing will be decided. * Plan of Care - Charles Traylor RN - 11/12/2024 6:07 AM EST Progress: no change Outcome Evaluation: Pt alert and oriented x4. VSS on 5L NC. BiPAP at night. Needs attended. Pain meds given with god effect. Safety maintained. Charles Traylor 11/12/2024 6:07 AM * Plan of Care - Ara Miner RN - 11/11/2024 6:25 PM EST Plan of Care Reviewed With: patient Progress: no change Outcome Evaluation: Assumed care from [id number]. Pt alert and oriented x4. Seems to be adjusting well. Recieved scheduled pain medication with good effect. Pt came to unit on 6L. Provider weaned downto 5L. POX: 95% on nasal cannula. No signs of respiratory distress. Electrolytes being replaced. Diet resumed. No signs of hyper/hypoglycemia during shift. Able to voice needs. Safety maintained. Ara Miner 11/11/2024 6:25 PM * Plan of Care - Nani Hollis PA-C - 11/11/2024 4:43 PM EST Messaged by TATIANNA team that patient saturating 88-91% on 6LNC post-procedure. Went to bedside to evaluate the patient. Patient alert and oriented, satting 94% with normal work of breathing. Lungs sounds without rhonchi or wheezing bilaterally. Exam overall unchanged from this morning and patient stable for transfer to floor with telemetry. Communicated to hospitilist attending Dr. Degroot by my colleague Dorys Ramos. * Plan of Care - Susan Ramos RN - 11/11/2024 3:00 PM EST A+Ox4. Afebrile. Report of leg pain, medicated per MAR with Improvement. RN weaned pt down to 3LNC.Bumex gtt infusing per orders. On this RN shift pt went down for TATIANNA. Leg brace on pt per orders. RN called and gave report to N12 RN. Pt belongings brought to N12. * Plan of Care - Nani Hollis PA-C - 11/11/2024 2:39 PM EST Spoke to patient's son and HCR Blas on the phone at number listed in the chart. Updated regarding current plan of care including ongoing diuresis and improved oxygen requirements. He is aware that his dad is getting the TATIANNA now and that it will provide our consult services with more information in regards to his likely endocarditis. Informed him that his father is stable for transfer to the floor with telemetry and will likely be moving to N12 following the TATIANNA. All questions answered at this time. Nani Hollis PA-C 11/11/2024 2:39 PM * Critical Care Communication - Nani Hollis PA-C - 11/11/2024 2:28 PM EST Critical Care Communication This is a communication tool to be used by providers for patients in the ICU. This note is not part of the patient's legal medical record but all documentation can be tracked and audited. Patient Demographics BLAS GENAO 1960 63 y.o. Allergies Allergen Reactions Lisinopril Other (See Comments) Dehydration Reason for admission: L BKA 2/2 calcaneal osteomyelitis Hospital course of events: This is a 63 year old male with pmh of Afluter/afib s/p watchman procedure, AVB s/p PPM, chronic diastolic CHF, HTH, HLD, MERVIN on CPAP, CKDIII, PAD/PVD who presented as a direct admit with plans for left BKA 2/2 calcaneal osteomyelitis s/p calcaneal ostectomy 08/2024 with wound vac placement. Patient underwent left BKA On 11/05. Left foot wound grew MRSA, Enterococcus faecalis, VRE, corynebacterium species and gram negative bacilli. Hospital course further complicated by MRSA and VRE/Enterococcus faecalis/faecium bacteremia. Cardiology was consulted. TTE was done that could not rule out vegetations, but suspicion for MV and pacemaker lead endocarditis. Patient was placed on daptomycin and ceftaroline for management. Meropenem was discontinued. Patient noted to be developing CHF exacerbation and appeared volume overloaded on assessment for which he was started on bumex spot dosing. However, on the morning of 11/07, patient started to become hypoxic requiring rescue BIPAP and initiation of bumex infusion. Patient transferred to medical SDU for further management. ID added Aztreonam and continued daptomycin/ceftaroline. Couldn't go for TATIANNA 10/31 hypoxia. EP consulted for possible infected pacer wire. Central line placed for access 10/31 not a PICC candidate yet. O2 requirements improved and patient no longer requiring rescue BiPAP, satting well on 6LNC. MRI brain ordered to eval for septic emboli and patient reported tremor. Continued diuresis. Held off on TEEagain due to anesthesia recommending more diuresis and optimizing respiratory status prior to procedure. ID discontinued aztreonam. Patient aggressively diuresed with large amount of urine output, CXR with improving bilateral congestion, proBNP downtrending, and O2 weaned to 3L NC. Patient went forTEE in PM of 11/11 and is stable for transfer to floor with telemetry after the procedure. Consults: Cardiology Orthopedics PT/OT ID Social work Procedures: Surgical/Procedural Cases on this Admission Case IDs Date Procedure Surgeon Location Status [id number] 11/05/24 LEFT BELOW KNEE AMPUTATION Dallas Camejo MD [facility] OR Comp Problem list: Principal Problem: Acute osteomyelitis of left calcaneus (HCC) (POA: Yes) Active Problems: HTN (hypertension) (POA: Yes) A-fib (HCC) (POA: Yes) PAD (peripheral artery disease) (POA: Yes) MERVIN on CPAP (POA: Yes) Diabetes (HCC) (POA: Yes) Stage 3a chronic kidney disease (CKD) (HCC) (POA: Yes) Hyperlipidemia (POA: Yes) Smoker (POA: Yes) Chronic diastolic congestive heart failure (HCC) (POA: Yes) Osteomyelitis (HCC) (POA: Yes) CKD (chronic kidney disease) (Chronic) (POA: Yes) Bacteremia (POA: Unknown) Presence of permanent cardiac pacemaker (POA: Unknown) Mitral valve vegetation (POA: Unknown) Mitral valve regurgitation (POA: Unknown) Resolved Problems: System Review: Neuro: Phantom limb pain, Hx. Alcohol use disorder - Mental status: A+Ox3, follows commands and participates appropriately in exam - Last drink 11/02, no tox screen done on admission - Continue scheduled tylenol 975mg Q6h for pain, Robaxin 1000 mg QID, Lyrica 150 mg TID - Continue Dilaudid 2 mg Q3h PRN for moderate pain (x2 overnight), 4 mg q3h PRN for severe pain ([id number]). 1x dose of liquid dilaudid 1mg given this AM for acute pain with wound care. - Continue home bupropion 150mg BID, Aricept 10mg daily - Continue melatonin 3 mg nightly PRN - Continue cholecalciferol, folic acid, multivitamin, thiamine, cyanocobalamin - Anesthesia had been consulted for pain control; patient refused nerve block, pain well controlled - Neurovascular checks q8h - MRI brain ordered to rule out septic emboli CT Head (11/07): 1. No acute intracranial process or abnormal intracranial enhancement. If there is a high clinical index of suspicion for acute embolic infarction, and it would alter patient management, consider MR brain, if possible. 2. Mild microvascular white matter ischemic changes. Resp: Acute hypoxic respiratory failure 2/2 volume overload, Hx. MERVIN on CPAP, smoker - SPO2: 92-97% on 5LNC, intermittently uses nocturnal CPAP - VBG (11/08): 7.35/49/45/28 on 6LNC - Continue bumex gtt @1 with spot push dose as needed for goal net negative 1-2L (-7L/24hr) - Continue Duonebs PRN - Continue nicotine patch - Repeat CXR 11/10 PM with improving bilateral pulmonary congestion, final read pending CXR 11/08: 1. Right internal jugular central venous catheter tip overlying the cavoatrial junction. 2. Hazy opacities in the bilateral lungs, most pronounced in the upper lung ta bilaterally. Attending note: Interval worsening of bilateral upper lung field airspace opacities as compared to the prior study. CV: Concern for mitral and pacer endocarditis, CHF exacerbation, Hx. CHF, HTN, HLD, Afib/Aflutter s/p watchman procedure, AVB s/p PPM, PAD/PVD - HR 60-70s, SBP 120-150s - proBNP 2964 (4654) - HS Trop 26 (29, peak) - Continue home amiodarone 200 mg daily, Norvasc 10 mg daily, lopressor 50 mg BID - Continue ASA 81mg daily - Hold pravastatin while on daptomycin - Hold Jardiance while inpatient - TTE could not confirm endocarditis, plan for TATIANNA - Awaiting response from their team regarding potential plan for today - Cardiology following - CT surgery consult pending TATIANNA - EP consulted for concern for infected PPM, further plan based on results of TATIANNA TTE 11/04: The left ventricle is mildly dilated. Left ventricular systolic function is mildly decreased. The quantitative EF is 43% by 3D imaging, and 46% by 2D Martinez biplane. The right ventricle is dilated. Right ventricular systolic function is normal. A pacer wire is present in the right ventricle. Right atrial cavity is severely dilated. A pacemaker wire is present in the right atrium. The mitral leaflets are moderately thickened. There is moderate to severe mitral regurgitation. Cannot rule out vegetation on the mitral valve leaflets. There is moderate tricuspid regurgitation. The estimated right ventricular systolic pressure is 44 mmHg. There is mild aortic regurgitation. The pulmonic valve was not well visualized. Compared to previous outside study report from [facility] on 08/05/2024, Mitral and tricuspid regurgitation were not previously reported. Recommend transesophageal echocardiogram if clinically indicated. GI: Hx. GERD - Diet: NPO except meds after midnight for possible TATIANNA - LFTs WNL except alk phos 207 - monitor every 3 days while on daptomycin (next 11/14) - Albumin 2.6 - Continue home protonix 40mg daily - Continue PRN Tums and Zofran - Stool output: x2/24h, continue bowel regimen + PRN Renal: TABITHA on CKD III, Hyponatremia likely 2/2 hypervolemia (resolved), Hx CKDIIIa - BUN/Cr 56/2 (57/1.9) (Baseline Cr 1.0-1.3) - Phos 4.7 (5.2) - CK 37 (91) - monitor while on daptomycin every 3 days (next 11/14) - Will continue diuresis as above and monitor kidney function closely - Continue calcium citrate BID - I/O: UOP 8.6L, -7.3L/24hr, net -2.4L Intake & Output Intake/Output Summary (Last 24 hours) at 11/11/2024 0737 Last data filed at 11/11/2024 0600 Gross per 24 hour Intake 1296 ml Output 8575 ml Net -7279 ml Endo: hyperglycemia, Hx. T2DM - FS 170-220s - Ha1c (08/2024): 8.7 - Has ISS while NPO - Check FS Q4h while NPO - Holding lispro 5u TID and meal ISS while NPO. May require additional standing lantus when diet resumed - Hypoglycemia protocol - Hold home metformin and glimepiride Heme: Acute normocytic anemia (stable), mild thrombocytosis - H/H 8.2/26.1 (7.6/25.2) - PLT 460 (445) - Continue to monitor H/H daily - VTE ppx: SQH ID: Left calcaneal osteomyelitis/diabetic foot s/p left BKA (11/05), MRSA and Enterococcus faecalis/faecium bacteremia, presumed endocarditis - Afebrile - WBC 13.2 (13.5) - Procal 0.40 - Respiratory viral panel negative - Blood cultures 11/02: MRSA, Enterococcus faecalis/faecium - Blood cultures 11/04: MRSA - Blood cultures 11/06: sterile to date - Blood cultures 11/07: sterile to date - MRSA 11/03: negative - Left leg tissue/bone pathology 11/05: pending - S/p Meropenem (11/03-11/05), aztreonam (11/07-11/10) - Continue Daptomycin (11/03-) and Ceftaroline (11/05-) per ID - Orthopedics following Prophylaxis: SQH, home PPI Code Status: FULL Lines: PIV Issues for follow up: - MRI brain ordered to rule out septic emboli, needs pacer interrogation prior which is ordered - Wean O2 as tolerated with ongoing diuresis - Cardiology would like CVP checked but patient already at TATIANNA, plan to check CVP before transfer to help guide diuresis if he returns to [place] before transfer. If he goes directly to floor, cardiology will need to check CVP. - CT surgery consult pending TATIANNA - EP consulted for concern for infected PPM, further plan based on results of TATIANNA - Will likely need insulin regimen adjustments when diet resumed - Left leg tissue/bone pathology 11/05: pending * Plan of Care - Mary Solomon CM - 11/11/2024 1:15 PM EST Ongoing Case Management Care Plan Note Summary:pt awaiting TATIANNA and MRI. CM met with pt at bedside, discussed acute rehab options, pt agreeable to referrals in the [facility] area. Referrals placed to [place] and [facility] rehabs Recommendation:inpt rehab Problem: Adult Inpatient Plan of Care Goal: Readiness for Transition of Care Outcome: Not Progressing Mary Solomon 11/11/2024 1:15 PM * Plan of Care - Christen Robledo RN - 11/11/2024 7:31 AM EST Plan of Care Reviewed With: patient Progress: no change Outcome Evaluation: A&Ox4. VSS. 6LNC, nocturnal CPAP. Voiding spontaneously. LBM 11/10/24. NPO at midnight. Bumex gtt per MAR. Skin as noted on flowsheet. Turn and repositioning as documented. Safety maintained. Call ling within reach. Christen Robledo 11/11/2024 7:31 AM * Plan of Care - Brennen Ahumada RN - 11/10/2024 7:50 PM EST Patient aox4. Bumex gtt running at 1mg/hr. PRN dilaudid given twice through out shift to positive effect. On NC 6L. Call light in reach. Patient safety maintained. Brennen Ahumada 11/10/2024 7:50 PM * Plan of Care - Nnai Hollis PA-C - 11/10/2024 4:18 PM EST Patient updated regarding current plan of care at bedside. Offered to call his son Blas to provide him with an update but patient declined as son should hopefully be visiting later this evening and he will update him then. All questions answered at this time. Nani Hollis PA-C 11/10/2024 4:18 PM * Plan of Care - Christen Robledo RN - 11/10/2024 6:23 AM EST Plan of Care Reviewed With: patient Progress: no change Outcome Evaluation: A&Ox4. VSS. 6LNC, nocturnal CPAP. Voiding spontaneously. LBM 11/09/24. NPO at midnight. Bumex gtt per NOV. Skin as noted on flowsheet. Turn and repositioning as documented. Safety maintained. Call ling within reach. Christen Robledo 11/10/2024 6:23 AM * Plan of Care - Claire Garibay PA-C - 11/09/2024 10:47 AM EST Family updated regarding current plan of care. All questions answered at this time. Claire Garibay PA-C 11/09/2024 10:47 AM * Medical Student - Claire Garibay PA-C - 11/09/2024 7:55 AM EST Critical Care Progress Note Subjective Overnight Events: -Wore CPAP briefly overnight, but was mostly on 6 L nasal cannula -Remains on Bumex drip Assessment & Plan Assessment Patient is a 63 y.o. 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 Patient underwent L BKA with intraoperative cultures growing MRSA, Enterococcus faecalis, VRE, corynebacterium species and gram negative bacilli. His course has been complicated with bacteremia and concernfor mitral valve/pacer lead endocarditis. He developed hypoxic respiratory failure requiring CPAP and was admitted to Step Down. Principal Problem: Acute osteomyelitis of left calcaneus (HCC) Active Problems: HTN (hypertension) A-fib (HCC) PAD (peripheral artery disease) MERVIN on CPAP Diabetes (HCC) Stage 3a chronic kidney disease (CKD) (HCC) Hyperlipidemia Smoker Chronic diastolic congestive heart failure (HCC) Osteomyelitis (HCC) CKD (chronic kidney disease) Bacteremia Presence of permanent cardiac pacemaker Mitral valve vegetation Mitral valve regurgitation LOS: 7 days Plan by system Neuro: Phantom limb pain, Hx. Alcohol use disorder - Mental status: alert and oriented x3 - Last drink 2/4 - Continue Tylenol ATC for pain, Robaxin 1000 mg QID - Continue Dilaudid 2 mg PO and 4 mg PO q3h PRN - Continue home bupropion, Aricept, Lyrica 150 mg daily - Continue melatonin 3 mg nightly PRN - Continue cholecalciferol, folic acid, multivitamin, thiamine, cyanocobalamin - Anesthesia had been consulted for pain control; patient refused nerve block, pain well controlled - CT head completed overnight, final read pending for evaluation of septic emboli - Neurovascular checks q8h Resp: Acute hypoxic respiratory failure 2/2 volume overload, Hx. MERVIN on CPAP, smoker - SPO2: 93% on 6 L nasal cannula - ABG 11/08: 7.35/49 on 6 L nasal cannula - Diurese plan per card section - Continue nicotine patch - Continue Duonebs PRN CXR 11/08: 1. Right internal jugular central venous catheter tip overlying the cavoatrial junction. 2. Hazy opacities in the bilateral lungs, most pronounced in the upper lung ta bilaterally. Attending note: Interval worsening of bilateral upper lung field airspace opacities as compared to the prior study. CV: Concern for mitral and pacer endocarditis, CHF exacerbation, Hx. CHF, HTN, HLD, Afib/Aflutter s/p watchman procedure, AVB s/p PPM, PAD/PVD - HR 60s, SBP 120s to 150s - proBNP 4241 (3427) - Troponin 26 (29) - Continue Bumex gtt at 1 mg/hr (- 1.5 L) IVP dose as needed - Goal 1-2 L negative - Continue home amiodarone 200 mg daily, Norvasc 10 mg daily, lopressor 50 mg BID - Hold pravastatin while on daptomycin - Hold Jardiance while inpatient - TTE could not confirm endocarditis, plan for TATIANNA 11/08 delayed 10/31 O2 reqs - CT surgery consult pending TATIANNA - Cardiology following - EP consulted for infected PPM, further plan based on results of TATIANNA TTE 11/04: The left ventricle is mildly dilated. Left ventricular systolic function is mildly decreased. The quantitative EF is 43% by 3D imaging, and 46% by 2D Martinez biplane. The right ventricle is dilated. Right ventricular systolic function is normal. A pacer wire is present in the right ventricle. Right atrial cavity is severely dilated. A pacemaker wire is present in the right atrium. The mitral leaflets are moderately thickened. There is moderate to severe mitral regurgitation. Cannot rule out vegetation on the mitral valve leaflets. There is moderate tricuspid regurgitation. The estimated right ventricular systolic pressure is 44 mmHg. There is mild aortic regurgitation. The pulmonic valve was not well visualized. Compared to previous outside study report from [facility] on 08/05/2024, Mitral and tricuspid regurgitation were not previously reported. Recommend transesophageal echocardiogram if clinically indicated. GI: Hx. GERD - Diet: Advance diet now that he is tolerating being off CPAP - LFTs WNL except alk phos 220, monitor every 3 days while on daptomycin - Continue bowel regimen + PRN - Continue Tums PRN, Zofran PRN - Stool output: x0/24h Renal: TABITHA on CKD, Hyponatremia likely 2/2 hypervolemia (resolved), HX. CKDIIIa - BUN/Cr 46/1.8 (45/1.7) (Baseline Cr 1.0-1.3) -K+ 3.6 - CK 91 (49)- monitor while on daptomycin every 3 days - Continue calcium citrate -UOP 2.2 L, net -1.5 L Intake & Output Intake/Output Summary (Last 24 hours) at 11/09/2024 0755 Last data filed at 11/09/2024 0119 Gross per 24 hour Intake 668 ml Output 2200 ml Net -1532 ml Endo: hyperglycemia, Hx. T2DM - FS 120s to 190s - Ha1c (08/2024): 8.7 - Continue SKYE -May need Lantus once off BIPAP taking p.o. - Hold home metformin and glimepiride Heme: Acute anemia - HH 7.7/24.9 (7.9/25.6) - PLT 405 (378) - INR 1.3 -Stop ASA and start subcu heparin for DVT prophylaxis - Left leg tissue/bone pathology 11/05: pending ID: Left calcaneal osteomyelitis/diabetic foot s/p left BKA (11/05), MRSA and Enterococcus faecalis/faecium bacteremia , presumed endocarditis - Afebrile - WBC 11.9 (13.1) - Blood cultures 11/02: MRSA, Enterococcus faecalis/faecium - Blood cultures 11/04: MRSA - Blood cultures 11/06: sterile to date - Blood cultures 11/07: sterile to date - MRSA 11/03: negative - S/p Meropenem (11/03-11/05) - Continue Daptomycin (11/03-) Ceftaroline (11/05-) and Aztreonam (11/07-) per ID - Respiratory viral panel negative - Orthopedics following - procal pending Vascular access: PIV, right IJ Mobility: Progressive Mobility Level Achieved: Level 0,PT/OT: Yes GI PPx: Pantoprazole DVT PPx: SC Heparin VTE Time Out Orthopedics & NeuroSurgery VTE risk stratification: Standard or low risk (11/05/2024 12:44 PM) Chemical Prophylaxis Low VTE risk aspirin enteric coated (ECOTRIN LOW STRENGTH) tablet 81 mg Oral Every 12 hours scheduled Mechanical Prophylaxis SCDs are ordered - RIGHT (Knee High) Patient declined SCD use, Please review IMPROVE SCORE: Drips: bumetanide, 1 mg/hr, Last Rate: 1 mg/hr (11/09/24 0333) Lines: Central Line - Triple Lumen (Adult) 11/08/24 1900 internal jugular vein, right (Active) Number of days: 1 Peripheral IV - Single Lumen (Adult) 11/08/24 0029 cephalic vein (lateral side of arm), right 20 gauge (Active) Number of days: 1 Enteric Access and Soto: Restraints: None Code: Full Dispo: SD, per Dr. Martin Objective Last Vitals: Pulse:60, Resp:15, BP:BP Min: 127/60 Max: 150/66 MAP: SpO2:93 % CVP: Temp Last 24 hrs: Temp Min: 96.6 ??F (35.9 ??C) Max: 97.8 ??F (36.6 ??C) Physical Exam: General appearance: Awake, alert. On 6 L oxymask. No apparent distress Lungs: Diminished posteriorly. CTA anteriorly Heart: RRR S1S2 Abdomen: +BS, soft, rounded, NTTP Extremities: No lower extremity edema, left lower extremity with BKA Neurologic: Grossly normal, A+O x3 Labs: Recent Labs 11/07/24 0813 11/08/24 0005 11/09/24 0150 WBC 12.4* 13.1* 11.9* HGB 8.9* 7.9* 7.7* HCT 28.9* 25.6* 24.9* PLT 430 378 405 MCV 92 91 92 MCH 28.2 27.9 28.3 MCHC 30.8 30.9 30.9 RDW 16.7* 16.9* 17.1* Recent Labs 11/07/24 0813 11/07/24 1236 11/07/24 1612 11/08/24 0005 11/08/24 1746 11/09/24 0150 BUN 47* -- 47* 48* 45* 46* CREAT 1.5* -- 1.6* 1.6* 1.7* 1.8* NA 129* -- 131* 133* 141 139 K 3.9 -- 3.7 3.8 3.3* 3.6 CO2 22 22 21* 21* 26 25 CL 94* -- 98 98 102 101 MG 2.3 -- 2.2 2.0 1.9 2.3 PHOS 4.3 -- 4.7* 5.2* 4.9* 5.2* AST 28 -- -- 24 -- -- ALT 29 -- -- 24 -- -- PROT 6.1* -- -- 5.5* -- -- No results for input(s): PT , PTT , INR in the last 72 hours. Medications Medication/MAR Report: Medications Scheduled Medication Ordered Dose/Rate, Route, Frequency Last Action acetaminophen (TYLENOL) tablet 975 mg 975 mg, PO, Q6H JUDSON Given, 975 mg at 11/08 1531 amiODARONE (PACERONE) tablet 200 mg 200 mg, PO, BID Given, 200 mg at 02/10 0903 amLODIPine (NORVASC) tablet 10 mg 10 mg, PO, Daily Given, 10 mg at 11/08 904 aspirin enteric coated (ECOTRIN LOW STRENGTH) tablet 81 mg 81 mg, PO, Q12H JUDSON Given, 81 mg at 11/08 2238 aztreonam (AZACTAM) 2 g in sodium chloride-MBP (NS) 100 mL IVPB-MBP 2 g, IV, Q8H Stopped, 11/09 753 buPROPion (WELLBUTRIN SR) 12 hr tablet 150 mg 150 mg, PO, BID Given, 150 mg at 11/08 2038 calcium citrate (CALCITRATE) tablet 950 mg 950 mg, PO, BID with meals Given, 950 mg at 11/08 163 ceftaroline (TEFLARO) 600 mg in sodium chloride (NS) 0.9 % 250 mL IVPB-WTD 600 mg, IV, Q8H Given, 600 mg at 11/09 013 chlorhexidine gluconate 2 % wipes - central line CHG application No Dose/Rate, TOP, Daily Given, No Dose/Rate at 11/08 1999 cholecalciferol tablet 2,000 Units 2,000 Units, PO, Daily Given, 2,000 Units at 11/08 902 cyanocobalamin (VITAMIN B-12) tablet 2,500 mcg 2,500 mcg, PO, Daily Given, 2,500 mcg at 11/08 902 DAPTOmycin (CUBICIN) 975 mg in sodium chloride (NS) 0.9 % 50 mL IVPB 10 mg/kg, IV, Q24H Stopped, 11/08 1603 donepezil (ARICEPT) tablet 10 mg 10 mg, PO, QAM Given, 10 mg at 11/08 903 [Provider Held] empagliflozin (JARDIANCE) 25 mg On hold since Lennie 11/04/2024 at 1503 until manually unheld; held by Juaquin Kern MDHold Reason: Pre-procedure On hold since Fri11/04/2024 at 1503 until manually unheld (Needs Review) Hold reason: Pre-procedure 25 mg, PO, Daily Given, 25 mg at 11/04 0756 folic acid (FOLVITE) tablet 1 mg 1 mg, PO, Daily Given, 1 mg at 11/08 904 [Provider Held] glimepiride (AMARYL) tablet 2 mg On hold since Fri11/04/2024 at 1503 until manually unheld; held by Juaquin Kern MDHold Reason: Pre-procedure On hold since Fri11/04/2024 at 1503 until manually unheld (Needs Review) Hold reason: Pre-procedure 2 mg, PO, Daily with breakfast Given, 2 mg at 11/04 0757 insulin lispro (HumaLOG/ADMELOG) 100 units/mL injection 1-11 Units 1-11 Units, SC, TID with meals Given, 2 Units at 11/08 173 insulin lispro (HumaLOG/ADMELOG) 100 units/mL injection 1-4 Units 1-4 Units, SC, NIGHTLY & 2AM Ordered insulin lispro (HumaLOG/ADMELOG) 100 units/mL injection 5 Units 5 Units, SC, TID with meals Given, 5 Units at 11/08 174 [Provider Held] metFORMIN (GLUCOPHAGE) tablet 500 mg On hold since Fri11/04/2024 at 1503 until manually unheld; held by Juaquin Kern MDHold Reason: Pre-procedure On hold since Fri11/04/2024 at 1503 until manually unheld (Needs Review) Hold reason: Pre-procedure 500 mg, PO, Daily with breakfast Given, 500 mg at 11/04 755 methocarbamol (ROBAXIN) tablet 1,000 mg 1,000 mg, PO, 4x Daily Given, 1,000 mg at 11/08 2038 metoPROLOL TARTRATE (LOPRESSOR) tablet 50 mg 50 mg, PO, BID Given, 50 mg at 11/08 2037 multivitamin with minerals tablet 1 tablet 1 tablet, PO, Daily Given, 1 tablet at 11/08 904 nicotine (NICODERM CQ) 21 MG/24HR patch 1 patch 1 patch, TD, Daily Patch Applied, 1 patch at 11/08 900 PANTOprazole (PROTONIX) EC tablet 40 mg 40 mg, PO, Daily Given, 40 mg at 11/08 903 [Provider Held] pravastatin (PRAVACHOL) tablet 20 mg On hold since Fri11/03/2024 at 0850 until manually unheld; held by Gayle Rose Reason: Other - Comment requiredHold Comments: While on IV daptomycin On hold since Fri11/03/2024 at 0850 until manually unheld (Needs Review) Hold reason: Other - Comment required, Hold comment: While on IV daptomycin 20 mg, PO, Daily Ordered pregabalin (LYRICA) capsule 150 mg 150 mg, PO, TID Given, 150 mg at 11/08 2037 senna-docusate (SENNA-S) 8.6-50 MG tablet 2 tablet 2 tablet, PO, BID Given, 2 tablet at 11/08 2037 thiamine mononitrate (VITAMIN B-1) tablet 200 mg 200 mg, PO, Daily Given, 200 mg at 11/08 09 Continuous Medication Ordered Dose/Rate, Route, Frequency Last Action bumetanide (BUMEX) IV infusion 12.5 mg in 50 mL 1 mg/hr, IV, Continuous New Bag, 1 mg/hr at 11/09 033 PRN Medication Ordered Dose/Rate, Route, Frequency Last Action bisacodyl (DULCOLAX) EC tablet 5 mg 5 mg, PO, Daily PRN Ordered bisacodyl (DULCOLAX) suppository 10 mg 10 mg, RE, Daily PRN Ordered calcium carbonate (TUMS) chewable tablet 1,000 mg 1,000 mg, PO, Q12H PRN Ordered dextrose 50 % solution 12.5 g (Or Linked Group #1) 12.5 g, IV, Q15 Min PRN Ordered dextrose 50 % solution 25 g (Or Linked Group #1) 25 g, IV, Q15 Min PRN Ordered glucagon (GLUCAGEN) injection 1 mg (Or Linked Group #1) 1 mg, IM, Daily PRN Ordered glucose (GLUTOSE 15) 40 % oral gel 37.5 g (Or Linked Group #1) 1 Tube, PO, Q15 Min PRN Ordered glucose (GLUTOSE 15) 40 % oral gel 75 g (Or Linked Group #1) 2 Tube, PO, Q15 Min PRN Ordered HYDROmorphone (DILAUDID) tablet 2 mg 2 mg, PO, Q3H PRN Given, 2 mg at 11/07 1824 HYDROmorphone (DILAUDID) tablet 4 mg 4 mg, PO, Q3H PRN Given, 4 mg at 11/09 447 ipratropium-albuterol (DUONEB) 0.5-2.5 mg/3 mL nebulizer solution 3 mL 3 mL, NEBULIZATION, Q2H PRN Given, 3 mL at 11/07 1025 lactulose (ENULOSE) 10 gm/15 mL solution 20 g 20 g, PO, Q4H PRN Ordered magnesium hydroxide (MILK OF MAGNESIA) 400 mg/5 mL suspension 30 mL 30 mL, PO, Q12H PRN Ordered melatonin tablet 3 mg 3 mg, PO, Nightly PRN Given, 3 mg at 11/08 2203 mineral oil (FLEET OIL) enema 1 enema 1 enema, RE, Daily PRN Ordered naloxone (NARCAN) 0.4 mg/mL injection 0.4 mg 0.4 mg, IV, Q5 Min PRN Ordered ondansetron (ZOFRAN) injection 4 mg 4 mg, IV, Q6H PRN Ordered polyethylene glycol (miraLAx) packet 17 g 17 g, PO, Daily PRN Ordered Sign: Claire Garibay PA-C 11/09/2024 7:55 AM * Provider Documentation Query - Shay Martin MD - 11/09/2024 7:05 AM EST Images from the original note were not included. Provider Documentation Clarification: Please clarify which if any of the following is the most likely diagnosis for the clinical findingsand treatment listed below: The medical record reflects: Clinical Findings: 11/05 Ortho He is bactermic and has findings suggestive of endocarditis. He had an acute decompensation overnight with fevers, increased O2 requirements and altered mental status. 11/05 ID Fevers overnight with increased oxygen requirements and also some altered mental status. Treatment: supportive care, continued treatment of infection Risk Factors: admitted with sepsis and bacteremia, endocarditis and osteomyelitis Please document on query form within 24 hours. Please continue to document your clinical opinion inthe progress notes and summarize at discharge summary. Based on your medical judgment which if any of the following diagnosis is appropriate for your patient. [Please use F2 to respond] Septic Encephalopathy This documentation will become a permanent part of the patient's legal medical record Tracy Lopez RN, CDS [phone] * Provider Documentation Query - Shay Martin MD - 11/09/2024 7:02 AM EST Images from the original note were not included. Provider Documentation Clarification Are you able to provide additional specificity for documented diagnosis of Sepsis? Clinical Findings: 11/05 Op note I admitted him directly for antibiotics, and he was subsequently worked up by medicine and cardiology, found to be septicemic, with cardiac vegetations. He and I had decided upon below the knee amputation, and it became clear that this was a lifesaving attempt, removing the source of clinical sepsis 11/08 ID Polymicrobial bacteremia: Source was left foot infection/ osteomyelitis. 11/04 (10/31) bld cx: G+ cocci in clusters -11/02(10/31) blood cultures: MRSA, Enterococcus faecalis, Enterococcus faecium Please document on query form within 24 hours. Please continue to document your clinical opinion inthe progress notes and summarize at discharge summary. Based on your medical judgment which if any of the following diagnosis is appropriate for your patient. [Please use F2 to respond] Sepsis Due to Specific Organism-Specify Organism(s) MRSA, Enterococcus faecalis, Enterococcus faecium This documentation will become a permanent part of the patient's legal medical record. Tracy Lopez RN, CDS [phone] * Plan of Care - Krystina Felipe RN - 11/09/2024 6:05 AM EST Outcome Evaluation: A&OX4, pain to surgical site, relieved with PRNs. Bumex continued at 1mg/hr. NPO at midnight. Mag and potassium replaced overnight. Call ling within reach, bed alarm on, safety maintained. Krystina Felipe 11/09/2024 6:05 AM * Plan of Care - Liz Wong RRT - 11/08/2024 5:33 PM EST Pt has been off NIV since morning. Pt looks comfortable on oxymask. Liz Wong 11/08/2024 5:33 PM * Plan of Care - Mary Solomon CM - 11/08/2024 3:43 PM EST Ongoing Case Management Care Plan Note Summary:TATIANNA pending, EP consult placed. Pt in [place] d/t need for rescue NIV. [facility] 16 on 11/06-will needupdated PT/OT notes, pt active with [facility], may need inpt rehab. CM will follow Problem: Adult Inpatient Plan of Care Goal: Readiness for Transition of Care Outcome: Not Progressing Mary Solomon 11/08/2024 3:43 PM * Medical Student - Deep Worthington RN - 11/08/2024 8:14 AM EST Critical Care Progress Note Subjective Overnight Events: CPAP overnight Assessment & Plan Assessment Patient is a 63 y.o. 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 Patient underwent L BKA with intraoperative cultures growing MRSA, Enterococcus faecalis, VRE, corynebacterium species and gram negative bacilli. His course has been complicated with bacteremia and concern for mitral valve/pacer lead endocarditis. He developed hypoxic respiratory failure requiring CPAP and was admitted to Step Down. Principal Problem: Acute osteomyelitis of left calcaneus (HCC) Active Problems: HTN (hypertension) A-fib (HCC) PAD (peripheral artery disease) MERVIN on CPAP Diabetes (HCC) Stage 3a chronic kidney disease (CKD) (HCC) Hyperlipidemia Smoker Chronic diastolic congestive heart failure (HCC) Osteomyelitis (HCC) CKD (chronic kidney disease) Bacteremia Presence of permanent cardiac pacemaker Mitral valve vegetation Mitral valve regurgitation LOS: 6 days Plan by system Neuro: Phantom limb pain, Hx. Alcohol use disorder - Mental status: alert and oriented x3 - Last drink 2/4 - Continue Tylenol ATC for pain, Robaxin 1000 mg QID - Continue Dilaudid 2 mg PO and 4 mg PO q3h PRN - Continue home bupropion, Aricept, Lyrica 150 mg daily - Continue melatonin 3 mg nightly PRN - Continue cholecalciferol, folic acid, multivitamin, thiamine, cyanocobalamin - Anesthesia had been consulted for pain control; patient refused nerve block, pain well controlled - CT head completed overnight, final read pending for evaluation of septic emboli - Neurovascular checks q8h Resp: Acute hypoxic respiratory failure 2/2 volume overload, Hx. MERVIN on CPAP, smoker - SPO2: 90-98% on CPAP 40 % 10 cm H2O - ABG 7.38/36/22/119 - Diurese plan per card section - Continue nicotine patch - Continue Duonebs PRN CXR 11/07 preliminary read: IMPRESSION: Worsening bilateral upper lung field airspace opacities and bronchial wall thickening compared to prior. CXR 11/04: IMPRESSION: Bilateral reticulonodular opacities concerning for interstitial edema. Superimposed atypical infection cannot be ruled out. CV: Concern for mitral and pacer endocarditis, CHF exacerbation, Hx. CHF, HTN, HLD, Afib/Aflutter s/p watchman procedure, AVB s/p PPM, PAD/PVD - HR 60-80s, SBP 110-150 - proBNP 4241 (3427) - Troponin 26 (29) - Continue Bumex gtt at 1 mg/hr (-2.5 L yesterday) IVP dose as needed - Goal 1-2 L negative today - Continue home amiodarone 200 mg BID, Norvasc 10 mg daily, lopressor 50 mg BID - Hold pravastatin while on daptomycin - Hold Jardiance while inpatient - TTE could not confirm endocarditis, plan for TATIANNA 11/08 delayed 10/31 O2 reqs - CT surgery consult pending TATIANNA - Cardiology following - EP consulted for infected PPM TTE 11/04: The left ventricle is mildly dilated. Left ventricular systolic function is mildly decreased. The quantitative EF is 43% by 3D imaging, and 46% by 2D Martinez biplane. The right ventricle is dilated. Right ventricular systolic function is normal. A pacer wire is present in the right ventricle. Right atrial cavity is severely dilated. A pacemaker wire is present in the right atrium. The mitral leaflets are moderately thickened. There is moderate to severe mitral regurgitation. Cannot rule out vegetation on the mitral valve leaflets. There is moderate tricuspid regurgitation. The estimated right ventricular systolic pressure is 44 mmHg. There is mild aortic regurgitation. The pulmonic valve was not well visualized. Compared to previous outside study report from [facility] on 08/05/2024, Mitral and tricuspid regurgitation were not previously reported. Recommend transesophageal echocardiogram if clinically indicated. GI: Hx. GERD - Diet: NPO while requiring continuous CPAP - LFTs WNL except alk phos 220 - Continue bowel regimen + PRN - Continue Tums PRN, Zofran PRN - Stool output: x1/24h Renal: TABITHA on CKD, Hyponatremia likely 2/2 hypervolemia (improving), HX. CKDIIIa - BUN/Cr 47/1.6 (Baseline Cr 1.0-1.3) - NA 133 (131) - CK 49 (61)- monitor while on daptomycin - Continue calcium citrate -Strict intake and output Intake & Output Intake/Output Summary (Last 24 hours) at 11/08/2024 0814 Last data filed at 11/08/2024 0400 Gross per 24 hour Intake 1141.4 ml Output 3650 ml Net -2508.6 ml Endo: hyperglycemia, Hx. T2DM - FS 170s-190s - Ha1c (08/2024): 8.7 - Continue SKYE - Start Lantus once off BIPAP - Hold home metformin and glimepiride Heme: Acute anemia - HH 7.9/25.6 (8.9/28.9) - PLT 430 - INR 1.3 - DVT ppx: aspirin 81 mg BID x3 weeks post op, can likely change to SQH - Left leg tissue/bone pathology 11/05: pending ID: Left calcaneal osteomyelitis/diabetic foot s/p left BKA (11/05), MRSA and Enterococcus faecalis/faecium bacteremia , presumed endocarditis - Afebrile - WBC 13.1 (12.4) - Blood cultures 11/02: MRSA, Enterococcus faecalis/faecium - Blood cultures 11/04: GPC in clusters - Blood cultures 11/06: sterile to date - Blood cultures 11/07: sterile to date - MRSA 11/03: negative - S/p Meropenem (11/03-11/05) - Continue Daptomycin (11/03-) Ceftaroline (11/05-) and Aztreonam (11/07-) per ID - Respiratory viral panel negative - Orthopedics following Vascular access: PIV Mobility: Progressive Mobility Level Achieved: Level 0,PT/OT: Yes GI PPx: Pantoprazole DVT PPx: ECASA VTE Time Out Orthopedics & NeuroSurgery VTE risk stratification: Standard or low risk (11/05/2024 12:44 PM) Chemical Prophylaxis Low VTE risk aspirin enteric coated (ECOTRIN LOW STRENGTH) tablet 81 mg Oral Every 12 hours scheduled Mechanical Prophylaxis SCDs are ordered - RIGHT (Knee High) Patient declined SCD use, Please review IMPROVE SCORE: Drips: bumetanide, 1 mg/hr, Last Rate: 1 mg/hr (11/07/24 2346) Lines: Peripheral IV - Single Lumen (Adult) 11/08/24 0029 cephalic vein (lateral side of arm), right 20 gauge (Active) Number of days: 0 Enteric Access and Soto: External Catheter 11/07/24 1500 (Active) Number of days: 1 Restraints: None Code: Full Dispo: SD, per Dr. Martin Objective Last Vitals: Pulse:60, Resp:18, BP:BP Min: 119/57 Max: 148/67 MAP: SpO2:97 % CVP: Temp Last 24 hrs: Temp Min: 96.2 ??F (35.7 ??C) Max: 99.7 ??F (37.6 ??C) Physical Exam: General appearance: Awake, alert. On 7 L oxymask. No apparent distress Lungs: Diminished posteriorly. CTA anteriorly Heart: RRR S1S2 Abdomen: +BS, soft, rounded, NTTP Extremities: No lower extremity edema Neurologic: Grossly normal, A+O x3 Labs: Recent Labs 11/06/2445711/07/24 0813 11/08/24 0005 WBC 11.9* 12.4* 13.1* HGB 8.7* 8.9* 7.9* HCT 27.9* 28.9* 25.6* PLT 346 430 378 MCV 92 92 91 MCH 28.5 28.2 27.9 MCHC 31.2 30.8 30.9 RDW 16.4* 16.7* 16.9* BASOABS 0.01 -- -- Recent Labs 11/06/24 04511/07/24 0813 11/07/24 1236 11/07/24 1612 11/08/24 0005 BUN 48* 47* -- 47* 48* CREAT 1.7* 1.5* -- 1.6* 1.6* NA 131* 129* -- 131* 133* K 3.8 3.9 -- 3.7 3.8 CO2 20* 22 22 21* 21* CL 99 94* -- 98 98 MG 2.5 2.3 -- 2.2 2.0 PHOS 5.1* 4.3 -- 4.7* 5.2* AST 50 28 -- -- 24 ALT 31 29 -- -- 24 PROT 5.7* 6.1* -- -- 5.5* No results for input(s): PT , PTT , INR in the last 72 hours. Medications Medication/MAR Report: Medications Scheduled Medication Ordered Dose/Rate, Route, Frequency Last Action acetaminophen (TYLENOL) tablet 975 mg 975 mg, PO, Q6H JUDSON Given, 975 mg at 11/08 324 amiODARONE (PACERONE) tablet 200 mg 200 mg, PO, BID Given, 200 mg at 11/07 816 amLODIPine (NORVASC) tablet 10 mg 10 mg, PO, Daily Given, 10 mg at 11/07 816 aspirin enteric coated (ECOTRIN LOW STRENGTH) tablet 81 mg 81 mg, PO, Q12H JUDSON Given, 81 mg at 11/07 2140 aztreonam (AZACTAM) 2 g in sodium chloride-MBP (NS) 100 mL IVPB-MBP 2 g, IV, Q8H New Bag, 2 g at 11/08 0518 buPROPion (WELLBUTRIN SR) 12 hr tablet 150 mg 150 mg, PO, BID Given, 150 mg at 11/07 2044 calcium citrate (CALCITRATE) tablet 950 mg 950 mg, PO, BID with meals Given, 950 mg at 11/07 1650 ceftaroline (TEFLARO) 600 mg in sodium chloride (NS) 0.9 % 250 mL IVPB-WTD 600 mg, IV, Q8H Given, 600 mg at 11/08 0324 cholecalciferol tablet 2,000 Units 2,000 Units, PO, Daily Given, 2,000 Units at 11/07 0814 cyanocobalamin (VITAMIN B-12) tablet 2,500 mcg 2,500 mcg, PO, Daily Given, 2,500 mcg at 11/07 814 DAPTOmycin (CUBICIN) 975 mg in sodium chloride (NS) 0.9 % 50 mL IVPB 10 mg/kg, IV, Q24H Stopped, 11/07 1799 donepezil (ARICEPT) tablet 10 mg 10 mg, PO, QAM Given, 10 mg at 11/07 08 [Provider Held] empagliflozin (JARDIANCE) 25 mg On hold since Fri11/04/2024 at 1503 until manually unheld; held by Juaquin Kern MDHold Reason: Pre-procedure On hold since Fri11/04/2024 at 1503 until manually unheld (Needs Review) Hold reason: Pre-procedure 25 mg, PO, Daily Given, 25 mg at 11/04 755 folic acid (FOLVITE) tablet 1 mg 1 mg, PO, Daily Given, 1 mg at 11/07 815 [Provider Held] glimepiride (AMARYL) tablet 2 mg On hold since Fri11/04/2024 at 1503 until manually unheld; held by Juaquin Kern MDHold Reason: Pre-procedure On hold since Fri11/04/2024 at 1503 until manually unheld (Needs Review) Hold reason: Pre-procedure 2 mg, PO, Daily with breakfast Given, 2 mg at 11/04 756 insulin lispro (HumaLOG/ADMELOG) 100 units/mL injection 1-11 Units 1-11 Units, SC, TID with meals Given, 2 Units at 11/07 1649 insulin lispro (HumaLOG/ADMELOG) 100 units/mL injection 1-4 Units 1-4 Units, SC, Nightly Given, 2 Units at 11/07 2045 [Provider Held] metFORMIN (GLUCOPHAGE) tablet 500 mg On hold since Fri11/04/2024 at 1503 until manually unheld; held by Gayle Rey Reason: Pre-procedure On hold since Fri11/04/2024 at 1503 until manually unheld (Needs Review) Hold reason: Pre-procedure 500 mg, PO, Daily with breakfast Given, 500 mg at 11/04 755 methocarbamol (ROBAXIN) tablet 1,000 mg 1,000 mg, PO, 4x Daily Given, 1,000 mg at 11/07 2042 metoPROLOL TARTRATE (LOPRESSOR) tablet 50 mg 50 mg, PO, BID Given, 50 mg at 11/07 2042 multivitamin with minerals tablet 1 tablet 1 tablet, PO, Daily Given, 1 tablet at 11/07 817 nicotine (NICODERM CQ) 21 MG/24HR patch 1 patch 1 patch, TD, Daily Patch Applied, 1 patch at 11/07 809 PANTOprazole (PROTONIX) EC tablet 40 mg 40 mg, PO, Daily Given, 40 mg at 11/07 814 [Provider Held] pravastatin (PRAVACHOL) tablet 20 mg On hold since Fri11/03/2024 at 0850 until manually unheld; held by Ena Mtz MDHold Reason: Other - Comment requiredHold Comments: While on IV daptomycin On hold since Fri11/03/2024 at 0850 until manually unheld (Needs Review) Hold reason: Other - Comment required, Hold comment: While on IV daptomycin 20 mg, PO, Daily Ordered pregabalin (LYRICA) capsule 150 mg 150 mg, PO, TID Given, 150 mg at 11/07 2043 senna-docusate (SENNA-S) 8.6-50 MG tablet 2 tablet 2 tablet, PO, BID Given, 2 tablet at 11/07 2042 thiamine mononitrate (VITAMIN B-1) tablet 200 mg 200 mg, PO, Daily Given, 200 mg at 11/07 813 Continuous Medication Ordered Dose/Rate, Route, Frequency Last Action bumetanide (BUMEX) IV infusion 12.5 mg in 50 mL 1 mg/hr, IV, Continuous New Bag, 1 mg/hr at 11/076 PRN Medication Ordered Dose/Rate, Route, Frequency Last Action bisacodyl (DULCOLAX) EC tablet 5 mg 5 mg, PO, Daily PRN Ordered bisacodyl (DULCOLAX) suppository 10 mg 10 mg, RE, Daily PRN Ordered calcium carbonate (TUMS) chewable tablet 1,000 mg 1,000 mg, PO, Q12H PRN Ordered dextrose 50 % solution 12.5 g (Or Linked Group #1) 12.5 g, IV, Q15 Min PRN Ordered dextrose 50 % solution 25 g (Or Linked Group #1) 25 g, IV, Q15 Min PRN Ordered glucagon (GLUCAGEN) injection 1 mg (Or Linked Group #1) 1 mg, IM, Daily PRN Ordered glucose (GLUTOSE 15) 40 % oral gel 37.5 g (Or Linked Group #1) 1 Tube, PO, Q15 Min PRN Ordered glucose (GLUTOSE 15) 40 % oral gel 75 g (Or Linked Group #1) 2 Tube, PO, Q15 Min PRN Ordered HYDROmorphone (DILAUDID) tablet 2 mg 2 mg, PO, Q3H PRN Given, 2 mg at 11/07 1825 HYDROmorphone (DILAUDID) tablet 4 mg 4 mg, PO, Q3H PRN Given, 4 mg at 11/08 0325 ipratropium-albuterol (DUONEB) 0.5-2.5 mg/3 mL nebulizer solution 3 mL 3 mL, NEBULIZATION, Q2H PRN Given, 3 mL at 11/07 1025 lactulose (ENULOSE) 10 gm/15 mL solution 20 g 20 g, PO, Q4H PRN Ordered magnesium hydroxide (MILK OF MAGNESIA) 400 mg/5 mL suspension 30 mL 30 mL, PO, Q12H PRN Ordered melatonin tablet 3 mg 3 mg, PO, Nightly PRN Ordered mineral oil (FLEET OIL) enema 1 enema 1 enema, RE, Daily PRN Ordered naloxone (NARCAN) 0.4 mg/mL injection 0.4 mg 0.4 mg, IV, Q5 Min PRN Ordered ondansetron (ZOFRAN) injection 4 mg 4 mg, IV, Q6H PRN Ordered polyethylene glycol (miraLAx) packet 17 g 17 g, PO, Daily PRN Ordered Sign: Deep Worthington RN 11/08/2024 8:14 AM Associated attestation - Eunice Garrison APRN - 11/12/2024 6:10 AM EST 63 y.o. 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 Patient underwent LBKA with intraoperative cultures growing MRSA, Enterococcus faecalis, VRE, corynebacterium species and gram negative bacilli. His course has been complicated with bacteremia and concern for mitral valve/pacer lead endocarditis. He developed hypoxic respiratory failure requiring CPAP and was admitted to Step Down. Pt awake and alert. He's requesting a PICC. PLAN: - No acute neuro issues - Plan for central line for further IV access - Weaning FiO2 with Bumex drip and IVP bumex as needed - Cardiology aware pt couldn't go for TATIANNA - EP consulted and TigerTexted - ID in agreement with central line as opposed to PICC at this time. - Plan discussed with Dr. Martin * Plan of Care - Anna Martinez RN - 11/08/2024 6:59 AM EST Problem: Adult Inpatient Plan of Care Goal: Plan of Care Review Flowsheets (Taken 11/08/2024 0650) Outcome Evaluation: Assumed care of pt at 1900. Pt sating well on 60-70L CPAP and V-Paced on tele overnight. Complained of phantom limb pain and tenderness in LLE. Pain managed successfully per NOV. Bumex gtt maintained at 4ml/hr. Pt transported to CT scan x2 with this RN. Scans completed, results pending. CPAP mask remained all night. No complaints of associated discomfort from pt. Safety maintained throughout, call light in reach. * Plan of Care - Liz Wong, YUN - 11/07/2024 6:17 PM EST [facility] remains on 4 L NC, Spo2 97%. Pt looks comfortable. Liz Wong 11/07/2024 6:17 PM * Plan of Care - Vernon Grey RN - 11/07/2024 3:59 PM EST Progress: declining Outcome Evaluation: Pt was upgraded to [facility] from [facility] this afternoon. Arrived at 1400, A&Ox4 on Rescue BiPAP 50%. Admission assessment completed. VSS. Male purewick placed for strict I's/O's for diuresis. Bumex gtt continues at 4mL/hr, tolerating well. Medicated per NOV. Pt updated on plan of care. No acute events since this admission. Respiratory PCR pending at this time. Safety/Fall/Contact/Droplet precautions in place, bed in lowest and locked position, call ling in reach, allpt's needs met at this time. Vernon Grey 11/07/2024 3:59 PM * Plan of Care - Rafiq Chakraborty MD - 11/07/2024 11:26 AM EST Critical Care Evaluation Date of admission: 11/02/2024 LOS: 5 CODE: Code Status Procedures Full code Assessment & Recommendations Assessment Blas Genao is a 63 y.o. male with a past medical history significant for atrial flutter/fib status post Watchman and PPM, HFpEF, type 2 diabetes mellitus, hypertension, hyperlipidemia, CKD stageIII, MERVIN on CPAP presented as a direct admit under Dr. Camejo for left calcaneal osteomyelitis. Patient underwent left BKA on 11/05 with course complicated by MRSA and VRE Enterococcus faecalis bacteremia. TTE demonstrated possible vegetation on the mitral valve with severe MR and the patient has been on ceftaroline/daptomycin per infectious disease guidance. Now the patient was noted to be febrile and hypoxic requiring 6 L oxy mask with saturations improving only to the mid to high 80s and was upgraded to medical stepdown for rescue BiPAP in the setting of pulmonary edema. Acute hypoxic respiratory failure 2/2 cardiogenic pulmonary edema MRSA and VRE Enterococcus faecalis bacteremia Possible mitral valve endocarditis Severe MR S/p left lower extremity BKA for calcaneal osteomyelitis Hypervolemic hyponatremia TABITHA on CKD LOS: 5 days Recommendations: -Initiated Bumex drip at 0.5 mg/h per cardiology recommendations - Continue ceftaroline/daptomycin per ID - Follow-up blood cultures - Pending possible TATIANNA for tomorrow - Patient placed on rescue BiPAP for increased work of breathing/hypoxia refractory to escalating Oxymask - Goal SpO2 >90% -Wound care of left BKA as per orthopedics -Signout given to 11 stepdown provider Dispo: medical Step down Brief Hospital Course/HPI Blas Genao is a 63 y.o. male with a past medical history significant for atrial flutter/fib status post Watchman and PPM, HFpEF, type 2 diabetes mellitus, hypertension, hyperlipidemia, CKD stageIII, MERVIN on CPAP presented as a direct admit under Dr. Camejo for left calcaneal osteomyelitis. Patient underwent left BKA on 11/05 with course complicated by MRSA and VRE Enterococcus faecalis bacteremia. TTE demonstrated possible vegetation on the mitral valve with severe MR and the patient has been on ceftaroline/daptomycin per infectious disease guidance. Now the patient was noted to be febrile and hypoxic requiring 6 L oxy mask with saturations improving only to the mid to high 80s. Stepdown was asked to evaluate for increasing O2 demands. On bedside evaluation the patient was in respiratory distress, increased work of breathing and stating that his breathing felt difficult to take a deep breath. Patient also felt that he had crackles and states that his weight typically runs approximately 230 pounds and on arrival here he was 264 pounds. Patient endorses low urine output despite being on Bumex, and takes 2 mg Bumex p.o. at home.Patient also endorses abdominal distention which he feels is fluid in his abdomen . Objective Last Vitals: Pulse:60, Resp:16, BP:BP Min: 121/62 Max: 121/62 MAP: SpO2:(!) 90 % CVP: Temp Last 24 hrs: Temp Min: 95 ??F (35 ??C) Max: 97.2 ??F (36.2 ??C) Physical Exam: Physical Exam Constitutional: General: He is in acute distress. Appearance: He is ill-appearing. HENT: Head: Normocephalic. Mouth/Throat: Mouth: Mucous membranes are moist. Eyes: Extraocular Movements: Extraocular movements intact. Pupils: Pupils are equal, round, and reactive to light. Cardiovascular: Rate and Rhythm: Normal rate. Rhythm irregular. Pulses: Normal pulses. Heart sounds: Murmur heard. Pulmonary: Effort: Pulmonary effort is normal. Breath sounds: Rhonchi and rales present. Comments: Bilateral crackles, rhonchi Abdominal: General: There is distension. Palpations: Abdomen is soft. Tenderness: There is no abdominal tenderness. Comments: Fluid wave appreciated. Musculoskeletal: Right lower leg: Edema present. Comments: 2+ pitting edema of the right lower extremity up to the hip. Left BKA with brace and srinivas bandage in place. Skin: General: Skin is warm. Neurological: General: No focal deficit present. Mental Status: He is alert and oriented to person, place, and time. Psychiatric: Mood and Affect: Mood normal. Behavior: Behavior normal. Labs: Notable labs are: Lab Results Component Value Date WBC 12.4 (H) 11/07/2024 HGB 8.9 (L) 11/07/2024 HCT 28.9 (L) 11/07/2024 PLT 430 11/07/2024 Lab Results Component Value Date NA 129 (L) 11/07/2024 K 3.9 11/07/2024 CL 94 (L) 11/07/2024 CO2 22 11/07/2024 BUN 47 (H) 11/07/2024 CREAT 1.5 (H) 11/07/2024 GLUC 188 (H) 11/07/2024 GLUC 191 (H) 11/07/2024 GLUC 119 (H) 09/10/2024 ANIONGAP 13 11/07/2024 Lab Results Component Value Date LACTIC 1.4 09/16/2024 Lab Results Component Value Date PROBNP 3,427 (H) 11/07/2024 Lab Results Component Value Date AST 28 11/07/2024 ALT 29 11/07/2024 ALKPHOS 220 (H) 11/07/2024 BILITOT 0.2 11/07/2024 BILIDIR 0.2 11/05/2024 ALBUMIN 2.6 (L) 11/07/2024 PROT 6.1 (L) 11/07/2024 Lab Results Component Value Date PTT 35 09/13/2024 LABPROT 15.3 (H) 11/05/2024 INR 1.3 11/05/2024 Medications Medication/MAR Report: Medications Scheduled Medication Ordered Dose/Rate, Route, Frequency Last Action acetaminophen (TYLENOL) tablet 975 mg 975 mg, PO, Q6H JUDSON Given, 975 mg at 11/07 813 amiODARONE (PACERONE) tablet 200 mg 200 mg, PO, BID Given, 200 mg at 11/07 816 amLODIPine (NORVASC) tablet 10 mg 10 mg, PO, Daily Given, 10 mg at 11/07 816 aspirin enteric coated (ECOTRIN LOW STRENGTH) tablet 81 mg 81 mg, PO, Q12H JUDSON Given, 81 mg at 11/07 814 buPROPion (WELLBUTRIN SR) 12 hr tablet 150 mg 150 mg, PO, BID Given, 150 mg at 11/07 816 calcium citrate (CALCITRATE) tablet 950 mg 950 mg, PO, BID with meals Given, 950 mg at 11/06 1828 ceftaroline (TEFLARO) 600 mg in sodium chloride (NS) 0.9 % 250 mL IVPB-WTD 600 mg, IV, Q8H Given, 600 mg at 11/07 1056 cholecalciferol tablet 2,000 Units 2,000 Units, PO, Daily Given, 2,000 Units at 11/07 813 cyanocobalamin (VITAMIN B-12) tablet 2,500 mcg 2,500 mcg, PO, Daily Given, 2,500 mcg at 11/07 814 DAPTOmycin (CUBICIN) 975 mg in sodium chloride (NS) 0.9 % 50 mL IVPB 10 mg/kg, IV, Q24H Stopped, 11/06 1516 docusate sodium (COLACE) capsule 100 mg 100 mg, PO, BID Given, 100 mg at 11/07 814 donepezil (ARICEPT) tablet 10 mg 10 mg, PO, QAM Given, 10 mg at 11/07 815 [Provider Held] empagliflozin (JARDIANCE) 25 mg On hold since Fri11/04/2024 at 1503 until manually unheld; held by Juaquin Kern MDHold Reason: Pre-procedure On hold since Fri11/04/2024 at 1503 until manually unheld (Needs Review) Hold reason: Pre-procedure 25 mg, PO, Daily Given, 25 mg at 11/04 0756 folic acid (FOLVITE) tablet 1 mg 1 mg, PO, Daily Given, 1 mg at 11/07 815 [Provider Held] glimepiride (AMARYL) tablet 2 mg On hold since Fri11/04/2024 at 1503 until manually unheld; held by Juaquin Kern MDHold Reason: Pre-procedure On hold since Fri11/04/2024 at 1503 until manually unheld (Needs Review) Hold reason: Pre-procedure 2 mg, PO, Daily with breakfast Given, 2 mg at 11/04 0757 insulin lispro (HumaLOG/ADMELOG) 100 units/mL injection 1-4 Units 1-4 Units, SC, NIGHTLY & 2AM Given, 1 Units at 11/07 0213 insulin lispro (HumaLOG/ADMELOG) 100 units/mL injection 1-6 Units 1-6 Units, SC, TID with meals Given, 2 Units at 11/07 08 [Provider Held] metFORMIN (GLUCOPHAGE) tablet 500 mg On hold since Fri11/04/2024 at 1503 until manually unheld; held by Juaquin Kern MDHold Reason: Pre-procedure On hold since Fri11/04/2024 at 1503 until manually unheld (Needs Review) Hold reason: Pre-procedure 500 mg, PO, Daily with breakfast Given, 500 mg at 11/04 0756 methocarbamol (ROBAXIN) tablet 1,000 mg 1,000 mg, PO, 4x Daily Given, 1,000 mg at 11/07 816 metoPROLOL TARTRATE (LOPRESSOR) tablet 50 mg 50 mg, PO, BID Given, 50 mg at 11/07 816 multivitamin with minerals tablet 1 tablet 1 tablet, PO, Daily Given, 1 tablet at 11/07 0818 nicotine (NICODERM CQ) 21 MG/24HR patch 1 patch 1 patch, TD, Daily Patch Applied, 1 patch at 11/07 08 PANTOprazole (PROTONIX) EC tablet 40 mg 40 mg, PO, Daily Given, 40 mg at 11/07 0815 [Provider Held] pravastatin (PRAVACHOL) tablet 20 mg On hold since Fri11/03/2024 at 0850 until manually unheld; held by Gayle Rose Reason: Other - Comment requiredHold Comments: While on IV daptomycin On hold since Fri11/03/2024 at 0850 until manually unheld (Needs Review) Hold reason: Other - Comment required, Hold comment: While on IV daptomycin 20 mg, PO, Daily Ordered pregabalin (LYRICA) capsule 150 mg 150 mg, PO, TID Given, 150 mg at 11/07 817 senna (SENOKOT) tablet 2 tablet 2 tablet, PO, Nightly Given, 2 tablet at 11/06 2107 senna-docusate (SENNA-S) 8.6-50 MG tablet 2 tablet 2 tablet, PO, BID Given, 2 tablet at 11/07 817 sodium chloride (NS) 0.9 % infusion - ADS Override Pull No Dose/Rate Ordered thiamine mononitrate (VITAMIN B-1) tablet 200 mg 200 mg, PO, Daily Given, 200 mg at 11/07 813 Continuous Medication Ordered Dose/Rate, Route, Frequency Last Action [Provider Held] lactated ringers (LR) infusion On hold since yesterday at 1058 until manually unheld; held by Ry Velasquez Reason: Other - Comment requiredHold Comments: Held percardiolgy On hold since yesterday at 1058 until manually unheld (Needs Review) Hold reason: Other - Comment required, Hold comment: Held per cardiolgy 100 mL/hr, IV, Continuous Stopped, 11/06 1100 [Provider Held] lactated ringers (LR) infusion On hold since yesterday at 1058 until manually unheld; held by Ry Velasquez Reason: Other - Comment required On hold since yesterday at 1058 until manually unheld (Needs Review) Hold reason: Other - Comment required 100 mL/hr, IV, Continuous Stopped, 11/06 1226 bumetanide (BUMEX) IV infusion 12.5 mg in 50 mL 0.5 mg/hr, IV, Continuous New Bag, 0.5 mg/hr at 11/07 1118 PRN Medication Ordered Dose/Rate, Route, Frequency Last Action bisacodyl (DULCOLAX) EC tablet 5 mg 5 mg, PO, Daily PRN Ordered bisacodyl (DULCOLAX) suppository 10 mg 10 mg, RE, Daily PRN Ordered bisacodyl (DULCOLAX) suppository 10 mg 10 mg, RE, Daily PRN Ordered calcium carbonate (TUMS) chewable tablet 1,000 mg 1,000 mg, PO, Q12H PRN Ordered dextrose 50 % solution 12.5 g (Or Linked Group #1) 12.5 g, IV, Q15 Min PRN Ordered dextrose 50 % solution 25 g (Or Linked Group #1) 25 g, IV, Q15 Min PRN Ordered diazepam (VALIUM) injection 10 mg (Or Linked Group #2) 10 mg, IV, Q15 Min PRN Ordered diazepam (VALIUM) injection 20 mg (Or Linked Group #2) 20 mg, IV, Q15 Min PRN Ordered diazepam (VALIUM) injection 20 mg (Or Linked Group #3) 20 mg, IV, Daily PRN Ordered diazepam (VALIUM) injection 40 mg (Or Linked Group #3) 40 mg, IV, Daily PRN Ordered glucagon (GLUCAGEN) injection 1 mg (Or Linked Group #1) 1 mg, IM, Daily PRN Ordered glucose (GLUTOSE 15) 40 % oral gel 37.5 g (Or Linked Group #1) 1 Tube, PO, Q15 Min PRN Ordered glucose (GLUTOSE 15) 40 % oral gel 75 g (Or Linked Group #1) 2 Tube, PO, Q15 Min PRN Ordered HYDROmorphone (DILAUDID) tablet 2 mg 2 mg, PO, Q3H PRN Ordered HYDROmorphone (DILAUDID) tablet 4 mg 4 mg, PO, Q3H PRN Given, 4 mg at 11/07 1120 ipratropium-albuterol (DUONEB) 0.5-2.5 mg/3 mL nebulizer solution 3 mL 3 mL, NEBULIZATION, Q2H PRN Given, 3 mL at 11/07 1025 lactulose (ENULOSE) 10 gm/15 mL solution 20 g 20 g, PO, Q4H PRN Ordered magnesium hydroxide (MILK OF MAGNESIA) 400 mg/5 mL suspension 30 mL 30 mL, PO, Q12H PRN Ordered magnesium hydroxide (MILK OF MAGNESIA) 400 mg/5 mL suspension 30 mL 30 mL, PO, Daily PRN Ordered melatonin tablet 3 mg 3 mg, PO, Nightly PRN Ordered mineral oil (FLEET OIL) enema 1 enema 1 enema, RE, Daily PRN Ordered naloxone (NARCAN) 0.4 mg/mL injection 0.4 mg 0.4 mg, IV, Q5 Min PRN Ordered ondansetron (ZOFRAN) injection 4 mg 4 mg, IV, Q6H PRN Ordered ondansetron (ZOFRAN-ODT) disintegrating tablet 4 mg 4 mg, PO, Q6H PRN Ordered polyethylene glycol (miraLAx) packet 17 g 17 g, PO, Daily PRN Ordered polyethylene glycol (miraLAx) packet 17 g 17 g, PO, Daily PRN Ordered Imaging: XR Chest 1 view-Portable (STAT) Preliminary Result Worsening bilateral upper lung field airspace opacities and bronchial wall thickening compared to prior. Interpreted by: Roberto Tolbert MD Erosion Control Specialist XR Chest 1 view-Portable (STAT) Final Result Bilateral reticulonodular opacities concerning for interstitial edema. Superimposed atypical infection cannot be ruled out. Interpreted by: David Vogt DO Erosion Control Specialist I personally reviewed the images and the resident's preliminary report and AGREE with the report as it is now presented ([id number]). Echocardiogram (TTE) Comprehensive (Contrast PRN) Final Result Transesophageal Echocardiogram (Results Pending) CT Head w/contrast (Results Pending) Rafiq Chakraborty MD PGY-3 [facility] [place] text preferred 11/07/24 11:26 AM * Plan of Care - Isabel Hinson RN - 11/07/2024 4:46 AM EST Problem: Adult Inpatient Plan of Care Goal: Plan of Care Review Outcome: Progressing Flowsheets (Taken 11/07/2024 0433) Plan of Care Reviewed With: patient Progress: improving Outcome Evaluation: Pt A+Ox4, vss on 3L O2 nc. Pt reporting visual changes (seeing colors) mostly on waking from sleep in the morning, team is aware. Tele/pulse ox continued - AV paced. Tolerating PO, voiding in urinal, LBM 11/06. Dsg to L BKA cdi, Demo Coordinator coil winder repair in place. Pt reporting adequate paincontrol this shift. Safety precautions maintained, continue with plan of care. Report given to oncoming RN. * Plan of Care - Kusum Sánchez RN - 11/06/2024 8:26 PM EST Outcome Evaluation: Pt A&Ox4, VSS. Denies SOB/CP. Monitored on tele/pulseox. Reporting seeing colors when he wakes up in the morning, ortho aware. Dressing to LLE CDI, protector. Pain controlled w/ dilaudid. IV antibiotics given. Voiding without difficulty, LBM 11/05. Fall and safety precautions maintained. Plan of care ongoing. Kusum Sánchez 11/06/2024 8:26 PM * Rehab Therapy Consults - Isabel Arroyo OTR - 11/06/2024 11:43 AM EST Occupational Therapy Initial Evaluation Current Diagnosis and Pertinent Medical History: Blas Genao is a 63 y.o. male Pod#1 (L)BKA Precautions/Restrictions: fall, weight bearing (NWB) Occupational Profile/Previous Level Of Function Occupational History/Life Experiences: (I)ADLs Mod(I)knee scooter level. Environmental Supports and Barriers: lives alone. reports good friend support and suportive sone Equipment Currently Used at Home: tub bench (knee scooter, floor to ceiling garb bars) Patient Goals: to return home BADL: independent IADL: independent Transfers: independent, uses device or equipment Household Mobility: independent, uses device or equipment Assessment & Plan Assessment: pt presenting with moderate pain to (L)BKA. Decreased functional standing balance noteddue to new loss of (L)LE. Pt at a higher risk for falls due to decreased balance. Pt performed SPT with (A)x2 RW level requiring assist to get balance and manage RW. DME/AE recommendations for home: commode and w/c Patient would benefit from ongoing occupational therapy services at home to address acute impairments following hospital stay. Patient is currently below their prior level of function and demonstrates the potential to achieve goal of maximizing functional ADL and IADL independence with continuationof skilled occupational therapy intervention. Rehab Plan of Care: Continue with skilled OT services while in house to maximize pt's best ability to function. Provide opportunities for participation in self care tasks. Encourage OOB to chair for meals Offer ice pack for pain mgmt Encourage use of bathroom/commode vs bed ceja -OT Recommendations for Staff: NWB'ing (L)LE. (A)x1 SPT RW level and ADLs -OT Frequency during Hospitalization: 2-3 times/wk -Plan of Care Reviewed With: evaluation/treatment results reviewed, care plan/treatment goals reviewed, risks/benefits reviewed, current/potential barriers reviewed, participants voiced agreement with care plan, participants included, patient Outcome Measures The Activity Measure for Post-Acute Care (AM-PAC) Daily Activity Inpatient Short Form (6-clicks) zakiya standardized measure used to quantify deficits in self-care. The total score of the measure ranges from 6-24. A higher score indicates a higher level of independence with self-care tasks. Baseline [facility] Daily Activity Score: 24 Current [facility] Daily Activity Score: 18 Objective Data Cognitive Status: Alert+oriented x4, follows multi step instructions and communicates appropriately Cognitive Function: Attention: intact Memory/recall: intact Safety Awareness: intact, however would benefit from further education and training Insight: good, however would benefit from further education and director of education and training Function: intact Activities of Daily Living: Grooming/Oral Care: would recommended completing seated due to decreased standing balance UB Dressing: (I) LB Dressing: max(A) clothing mgmt standing due to decreased standing balance Toileting: min(A)x2 SPT RW level to bed side commode Functional Mobility: Bed Mobility: (S) supine<>sit Transfers: min(A)x2 sit<>stand to RW and SPT RW level with assist to manage RW Sensory Systems: Vision: glasses Hearing: intact Somatosensory: intact ROM: (B)UE WFL Strength: (B)UE WFL Coordination: (B)UE fine and gross motor itnact Balance: good functional sitting balance Fair/Fair- functional standing balance with RW for support Endurance/Activity Tolerance: good. Patient performed all activity on 7L O2 NC Vitals: monitored via telemetry Education: Role of OT, purpose of evaluation and POC. Subjective Krystle adapted my home pretty well Past Medical/Surgery History Past Medical History: Diagnosis Date A-fib (HCC) Acute osteomyelitis (HCC) Atrial flutter (HCC) Cardiac pacemaker 2015 Carotid atherosclerosis Charcot's joint of right foot 2015 Chronic sciatica Complete AV block (HCC) Diabetes mellitus (HCC) TYPE II Diabetic foot ulcer (HCC) ED (erectile dysfunction) Edema ESBL (extended spectrum beta-lactamase) producing bacteria infection GERD (gastroesophageal reflux disease) GI bleed Hyperlipidemia Hypertension Leukocytosis Metabolic bone disease Multiple drug resistant organism (MDRO) culture positive Non healing left heel wound Obesity Osteoarthrosis Osteomyelitis of both feet (HCC) PAD (peripheral artery disease) ([facility]) Primary osteoarthritis of knee Proteinuria Renal osteodystrophy Restless legs syndrome (RLS) no meds, lyrica helps Septic joint of left knee joint (HCC) Sleep apnea BiPap Smoker Stage 3a chronic kidney disease (CKD) ([facility]) Past Surgical History: Procedure Laterality Date AMPUTATION Right 2017 TMA AORTOGRAM- ABDOMINAL Left 09/15/2024 Procedure: LEFT LOWER EXTREMITY ANGIOGRAM; Surgeon: Delbert Mcintosh MD; Location: Main OR; Service: Peripheral Vascular; Laterality: Left; BARIATRIC SURGERY 2018 CARDIAC ELECTROPHYSIOLOGY STUDY AND ABLATION x5 CARDIAC PACEMAKER PLACEMENT 2016 CARDIAC SURGERY 2020 watchman device CARDIOVERSION 07/2024 CC PERIPHERAL ANGIOGRAPHY Left 07/2024 LE CHANGE DRESSING WOUND VAC Left 09/10/2024 Procedure: APPLICATION OF WOUND VAC; Surgeon: Dallas Camejo MD; Location: [facility] OR; Service: Orthopaedics; Laterality: Left; FOOT SURGERY Right x5 INCISION AND DRAINAGE FOOT Left OH PROCEDURE MAZE AFIB OSTECTOMY CALCANEOUS Left 09/10/2024 Procedure: ANKLE PARTIAL CALCANECTOMY; Surgeon: Dallas Camejo MD; Location: [facility] OR; Service: Orthopaedics; Laterality: Left; wOUND PARTIALLY CLOSED SUPERFICIALLY, WOUND VAC PLACED TOTAL KNEE ARTHROPLASTY Left 2016 REVISION SAME YEAR/INFECTION Flowsheet Data 11/06/24 1143 OT Time and Intention OT Visit Type initial evaluation Mode of Treatment occupational therapy Patient Effort good Symptoms Noted During/After Treatment increased pain General Information Patient Profile Reviewed yes Onset of Illness/Injury or Date of Surgery 11/05/24 Referring Physician Tamera Patient/Family/Caregiver Comments/Observations Krystle adapted my home pretty well General Observations of Patient pt met semi reclined in bed, agreeable to OT eval Pertinent History of Current Functional Problem POd#1 (L)BKA Existing Precautions/Restrictions fall;weight bearing (NWB) Previous Level of Function/Home Environm Bathing/Grooming, Premorbid Functional Level independent Dressing, Premorbid Functional Level independent Eating/Feeding, Premorbid Functional Level independent Toileting, Premorbid Functional Level independent BADLs, Premorbid Functional Level independent IADLs, Premorbid Functional Level independent Bed Mobility, Premorbid Functional Level independent Transfers, Premorbid Functional Level independent;uses device or equipment Household Ambulation, Premorbid Functional Level independent;uses device or equipment Stairs, Premorbid Functional Level not applicable (see comment) Community Ambulation, Premorbid Functional Level independent;uses device or equipment Living Environment Current Living Arrangements home People in Home alone Primary Care Provided by self Home Use of Assistive/Adaptive Equipment Equipment Currently Used at Home tub bench (knee scooter, floor to ceiling garb bars) Occupational Profile Reason for Services/Referral (Occupational Profile) BKA Occupational History/Life Experiences (Occupational Profile) (I)ADLs Mod(I)knee scooter level. Environmental Supports and Barriers (Occupational Profile) lives alone. reports good friend supportand suportive sone Patient Goals (Occupational Profile) to return home Pain Assessment Pretreatment Pain Rating 7/10 Posttreatment Pain Rating 7/10 Pain Location - Side/Orientation Left Pain Location lower Pain Location - extremity (pt reports some phantom limb pain) Cognition Cognitive Status intact Affect/Mental Status (Cognition) WFL Orientation Status (Cognition) oriented x 4 Follows Commands (Cognition) WFL Cognitive Function (Cognition) WFL Mobility Left Lower Extremity (Weight-bearing Status) non weight-bearing (NWB) Coping Observed Emotional State pleasant Safety Safety WDL WDL Safety Factors bed in low position;call light in reach;ID band on;upper side rails raised x 2;wheels locked All Alarms alarm(s) activated and audible Enhanced Safety Measures bed alarm set Isolation Precautions contact Progressive Mobility Progressive Mobility Level Achieved Transferring to Chair [facility] Daily Activity Putting on and taking off Lower Body Clothing? 2 Bathing (including washing/rinsing/drying)? 3 Toileting (includes using toilet, bedpan, or urinal)? 2 Putting on and taking off upper body clothing? 4 Taking care of personal grooming such as brushing teeth? 3 Eating meals? 4 [facility] Daily Activity Score 18 Therapy Assessment/Plan (OT) Functional Level at Time of Evaluation (OT) (A)x1 SPT RW and ADLs OT Diagnosis decreased (I) with ADLs and mobility RW level Rehab Potential (OT) good Criteria for Skilled Therapeutic Interventions Met (OT) yes;meets criteria Therapy Frequency (OT) 2-3 times/wk Predicted Duration of Therapy Intervention (OT) LOS Planned Therapy Interventions (OT) activity tolerance training;adaptive equipment training;BADL retraining;functional balance retraining;IADL retraining;occupation/activity based interventions Evaluation Complexity (OT) Overall Complexity of Evaluation (OT) moderate complexity Therapy Plan Review/Discharge Plan (OT) Therapy Plan Review (OT) evaluation/treatment results reviewed;care plan/treatment goals reviewed;risks/benefits reviewed;current/potential barriers reviewed;participants voiced agreement with care plan;participants included;patient Equipment Needs Upon Discharge (OT) raised toilet seat OT Recommendations for Staff NWB'ing (L)LE. (A)x1 SPT RW level and ADLs OT Goals Bathing Goal Selection (OT) bathing, OT goal 1 Dressing Goal Selection (OT) dressing, OT goal 1 Toileting Goal Selection (OT) toileting, OT goal 1 Bathing Goal 1 (OT) Moffat Level/Cues Needed (Bathing Goal 1, OT) modified independence Activity/Device (Bathing Goal 1, OT) bathing skills, all Time Frame (Bathing Goal 1, OT) 2 weeks Dressing Goal 1 (OT) Activity/Device (Dressing Goal 1, OT) lower body dressing Time Frame (Dressing Goal 1, OT) 1 week Moffat/Cues Needed (Dressing Goal 1, OT) modified independence Toileting Goal 1 (OT) Activity/Device (Toileting Goal 1, OT) toileting skills, all Time Frame (Toileting Goal 1, OT) 1 week Moffat Level/Cues Needed (Toileting Goal 1, OT) modified independence Sign: YASH Garcia * Plan of Care - Isabel Hinson RN - 11/06/2024 8:10 AM EST Problem: Adult Inpatient Plan of Care Goal: Plan of Care Review Outcome: Progressing Flowsheets (Taken 11/06/2024 0808) Plan of Care Reviewed With: patient Progress: improving Outcome Evaluation: Pt A+Ox4, vss on 3L O2 nc, BiPAP overnight. Tele/pulse ox continued, NSR prolonged QT and prolonged QRS complex. Tolerating PO, voiding without issue, LBM 11/05 - pt reports passingflatus. Srinivas wrap to L BKA cdi, hemovac in place. Tingling reported to L inner thigh. Pt reports adequate pain control this shift. Safety precautoins maintained, continue with plan of care. Report given to oncoming RN. * Plan of Care - Valencia Lou RN - 11/05/2024 6:23 PM EST Outcome Evaluation: patient is drowsy and oriented x4 with pleasant affect. he is able to make his needs known. he reports seeing different colors each time he wakes up. This was verbally reported tothe medicine team. He has a TATIANNA scheduled for today for clearance to undergo a LLE BKA. he is NPO and meds were given with small sips of water. TATIANNA cancelled and surgery pushed up. he is on 2L nc andNSR/ Vpaced on tele and pulse ox. patietn returned from the OR s/p left BKA. he is alert and ready to eat. blood glucose monitored and he reports how great he is feeling and that the fog has been lifted. he is still on 2L NC. Patient is resting in bed, in no acute distress, call ling within reach. bed is in lowest locked position, purposeful rounding conducted. Valencia Lou 11/05/2024 6:23 PM * Op Note - Dallas Camejo MD - 11/05/2024 2:06 PM EST Images from the original note were not included. [facility] [address] [place] [id number] OPERATIVE REPORT Patient Name: Blas Genao Date of : 1960 Date of Procedure: 11/05/2024 Surgeons and Role: * Dallas Camejo MD - Primary * Sheila Childs APRN - Assisting Pre-op Diagnosis: Acute osteomyelitis of left calcaneus ([facility]) [M86.172] Post-Op Diagnosis Codes: * Acute osteomyelitis of left calcaneus (HCC) [M86.172] Details of Procedure Procedure(s): LEFT BELOW KNEE AMPUTATION Additional Procedures Surgeon: Dallas Camejo MD Anesthesia: general with sciatic and femoral block Indications: Blas is a 63-year-old gentleman who presented to me with calcaneal osteomyelitis and aplantar lateral ulceration, impaired vascular flow, who opted for an attempt at limb salvage with apartial calcanectomy. Unfortunately, his wound dehisced, he became clinically infected postoperatively, and arrived to my office in a ill state of being. I admitted him directly for antibiotics, and he was subsequently worked up by medicine and cardiology, found to be septicemic, with cardiac vegetations. He and I had decided upon below the knee amputation, and it became clear that this was a lifesaving attempt, removing the source of clinical sepsis, and that he would likely need multi servicecare over the subsequent weeks or months. He wished to proceed. Description of Procedure: In the preoperative holding area, the anesthesia team administered a peripheral nerve block. Moshe was brought to the operative suite by stretcher, where general anesthesia was induced. He was transition to the OR table, and his extremities were well-padded. A bump was placed under his left hip. His left lower extremities prepped and draped in standard surgical fashion. A tourniquet had been placed around his thigh, and preoperative timeout was called. After elevation exsanguination, the thigh tourniquet was inflated to 250 mmHg, and the total tourniquet time the case was 22 minutes. A standard fishmouth incision was made approximately 12 cm distal to the tibial tubercle, and full-thickness dissection was carried down carefully to tibia. Reciprocal saw was used to divide the tibia, and then the anterior lateral compartments were carefully divided with the Bovie, to achieve hemostasis at the peroneal bundle, using 0 Vicryl for ties. Fibula was isolated, and cut at an oblique fashion just proximal to the level of tibial osteotomy. The leg was then carefully delivered from the proximal aspect, using sharp dissection to transect the deep posterior compartments, delivering the leg off the table as specimen. Redundant musculature was sharply excised, and the neurovascular bundles were carefully identified, tied off with 0 Vicryl, and neurectomies performed with distal traction and proximal resection. Tourniquet was let down, and bleeding hemostasis was achieved with snap, cautery, and 0 Vicryl ties. I was pleased with hemostasis achieved. There is no evidence of proximal infection. Fascia of the deep posterior compartment was brought over the end of the tibia, which had been chamfered with a saw at the anterior bevel. Fascial fascial tenodesis closure was performed with 0 Vicryl, obtaining a watertight seal over the deep posterior compartment and level of bony resection. A drain was placed in this deep compartment, brought out to the anterolateral soft tissues of the leg. Wound had been carefully irrigated, and then closed in a layered fashionwith 0 Vicryl, 2-0 Vicryl, and josafat for skin closure. The sponge needle and instrument counts were correct at end the case. Moshe was brought to the PACU in stable condition. Complications: none Operative Findings: Above Total Fluids: 1000 mL Drains: Hemovac Estimated Blood Loss: 50 mL Blood Transfusion: No Implants: * No implants in log * Specimens: ID Type Source Tests Collected by Time Destination [id number] : Left leg below the knee amputation Bone with Tissue Leg, left PATHOLOGY REPORT Dallas Camejo MD 11/05/2024 2:11 PM Disposition: awakened from anesthesia, extubated and taken to the recovery room in a stable condition, having suffered no apparent untoward event. Condition: fair Dallas Camejo MD Date: 11/05/2024 Cc: Lee Fabian MD * Brief Op Note - Sheila Childs APRN - 11/05/2024 2:06 PM EST LEFT BELOW KNEE AMPUTATION Brief Op Note Blas Genao 63 y.o. 11/05/2024 Pre-op Diagnosis: Acute osteomyelitis of left calcaneus (HCC) [M86.172] Post-op Diagnosis: Post-Op Diagnosis Codes: * Acute osteomyelitis of left calcaneus (HCC) [M86.172] LEFT BELOW KNEE AMPUTATION: Additional Procedures Surgeons and Role: * Dallas Camejo MD - Primary * Sheila Childs APRN - Assisting Procedure Description: see op note Procedure Findings: see op note Anesthesia: general Staff: Genetic Coordinator: Mary Emery RN Scrub Precepting: Binta Griffith CST Genetic Coordinator Relief: Cynthia Desai RN Estimated Blood Loss: * No values recorded between 11/05/2024 2:06 PM and 11/05/2024 3:22 PM * Specimens: ID Type Source Tests Collected by Time Destination [id number] : Left leg below the knee amputation Bone with Tissue Leg, left PATHOLOGY REPORT Dallas Camejo MD 11/05/2024 1411 Sheila Childs Date: 11/05/2024 Time: 3:32 PM Procedure(s): LEFT BELOW KNEE AMPUTATION Orthopedics Brief Op Note Blas Genao 11/02/2024 - 11/05/2024 Pre-op Diagnosis: Acute osteomyelitis of left calcaneus (HCC) [M86.172] Post-Op Diagnosis Codes: * Acute osteomyelitis of left calcaneus (HCC) [M86.172] Procedure(s) (LRB): LEFT BELOW KNEE AMPUTATION (Left) Surgeon(s): SHUBHAM Triana MD Anesthesia: general Staff: Genetic Coordinator: Mary Emery RN Scrub Precepting: Binta Griffith CST Genetic Coordinator Relief: Cynthia Desai RN Estimated Blood Loss: 25 ml Specimens: ID Type Source Tests Collected by Time Destination [id number] : Left leg below the knee amputation Bone with Tissue Leg, left PATHOLOGY REPORT Dallas Camejo MD 11/05/2024 141 Drains: Small hemovac 400 mL Tourniquet Time:: Total Tourniquet Time Documented: Thigh (Left) - 22 minutes Total: Thigh (Left) - 22 minutes Post Op Plan: WB Status: NWB LLE, soft dressing applied. VTE Prophylaxis: Aspirin 81 mg BID x 3 weeks, start tonight. Antibiotics: Defer to ID PACU Imaging: None Drains: Small hemovac 400 mL Am Labs: Repeat existing routine labs, defer to medicine and cards Consults: Needs a postop eval from [facility]. Already being followed by ID, cards, and medicine. Orthopedics & NeuroSurgery VTE risk stratification: Standard or low risk (11/05/2024 12:44 PM) Sheila Childs Date: 11/05/2024 Time: 3:32 PM * Plan of Care - Naveen Kebede CM - 11/05/2024 9:29 AM EST Problem: Adult Inpatient Plan of Care Goal: Readiness for Transition of Care Outcome: Progressing Pt is bacteremic. Plan for OR today. Will have TATIANNA. Staff Anesthesiologist to follow Naveen Kebede 11/05/2024 9:29 AM * Plan of Care - Nitish Tracy MD - 11/05/2024 9:28 AM EST Worsening mental status. 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 High risk for septic emboli to brain. With acute decompensation ok to proceed with BKA. Pt will be high risk and may require pressors after the procedure. Afterwards may need bedside TATIANNA to assess the valves. Will involve other specialities including EP and CTS after the procedure. Unfortunately complex case so doing TATIANNA first is not going to casino change attendant. Leg wounds are like the source that has now seeded the valves and likely have involved thePPM. Will eventually need PP, evaluation and extraction afterwards. - Proceed with BKA - ABx per ID - Will need TATIANNA afterwards - Consider CT head to rule out septic emboli to brain petty with acute mental status change. MD Emiliana Perez [facility] T: [phone] F: [phone] Main Office: [address] [place] [address] * Provider Documentation Query - Juaquin Kern MD - 11/05/2024 8:31 AM EST Provider Documentation Clarification: Please document on query form within 24 hours. The medical record reflects: TABITHA Documented clinical findings: 11/04 ID TABITHA. Today's creatinine pending. History of CKD 3 Cr 2.0, eGFR 37 Please provide additional clinical support to confirm this diagnosis. OR Please document in the medical record that TABITHA has been ruled out. [Please use F2 to respond] Please state your medical judgment below. Diagnosis confirmed. Relevant clinical indicators for the diagnosis include Last August Cr 1,1,1.3,1.3 on admit 2.0 Baseline Creatinine 1.1 This documentation will become a permanent part of the patient's legal medical record Please continue to document your clinical opinion in the progress notes and summarize at discharge summary. Tracy Lopez RN, CDS [phone] * Plan of Care - Belkys Diaz RN - 11/05/2024 1:54 AM EST Problem: Adult Inpatient Plan of Care Goal: Plan of Care Review Outcome: Progressing Flowsheets (Taken 11/05/2024 0154) Plan of Care Reviewed With: patient Progress: improving Outcome Evaluation: A/O, denies pain overnight. Bilat foot dsg are c/d/i, baseline neuropathy. OOB with walker and 1 assist. Tolerating diet, npo at midnight, LR 75/hr. Pt voiding. Denies sob and cp.During evening pt had temp 102.4, medicated with tylenol and now 99.3. Pt also only 87% RA, lungs are clear, educating to use IS which he does not use alot. Placed on 2LNC, increased to 94%. Pt now sleeping CPAP and is at 93%. Notified hospitilaist, CXR ordered, suggested tele/pulse ox but at this time not ordered. Pt is resting comfortably Belkys Diaz 11/05/2024 1:54 AM * Plan of Care - Patricia Sun RN - 11/04/2024 6:34 PM EST Problem: Adult Inpatient Plan of Care Goal: Plan of Care Review Outcome: Progressing Flowsheets (Taken 11/04/2024 5823) Plan of Care Reviewed With: patient Progress: no change Outcome Evaluation: Pt alert and oriented, denies cp ,sob, VSS, B foot dressing CDI, pt kannan Po, FS covered as oprdered, pain controled with current pain med regiment, IV ABX as ordered, OOB assx1 RAMEZ sumner Today, cardiology to see pt , plan for TATIANNA tomorrow, plan of care ongoing. Plan of Care Reviewed With: patient Progress: no change Outcome Evaluation: Pt alert and oriented, denies cp ,sob, VSS, B foot dressing CDI, pt kannan Po, FS covered as oprdered, pain controled with current pain med regiment, IV ABX as ordered, OOB assx1 andRAMEZ hobbs Today, cardiology to see pt , plan for TATIANNA tomorrow, plan of care ongoing. Patricia 11/04/2024 6:34 PM * Plan of Care - Belkys Diaz RN - 11/04/2024 4:18 AM EST Plan of Care Reviewed With: patient Progress: improving Outcome Evaluation: A/O, denies pain overnight. Bilat foot dsg are c/d/i, baseline neuropathy. OOB with walker and 1 assist. Tolerating diet, pt voiding. Denies sob and cp, VSS. Continue IV antibiotics, plan for OR friday Belkys Diaz 11/04/2024 4:18 AM * Plan of Care - Patricia Sun RN - 11/03/2024 6:39 PM EST Problem: Adult Inpatient Plan of Care Goal: Plan of Care Review Outcome: Progressing Flowsheets (Taken 11/03/2024 1836) Plan of Care Reviewed With: patient Progress: no change Outcome Evaluation: Pt alert and oriented, denies cp ,sob, VSS, kristie LE dressings CDI, pain controled with current pain med regiment, pt kannan Po,FS covered as ordered, OOB assx1 and walker, voiding IN BR , BM Today, NE ABS started, Temp 100.6, and new blood culture results reported to MD , plan of care ongoing. Plan of Care Reviewed With: patient Progress: no change Outcome Evaluation: Pt alert and oriented, denies cp ,sob, VSS, kristie LE dressings CDI, pain controled with current pain med regiment, pt kannan Po,FS covered as ordered, OOB assx1 and walker, voiding IN BR , BM Today, NE ABS started, Temp 100.6, and new blood culture results reported to MD , plan of care ongoing. Patricia 11/03/2024 6:39 PM * Plan of Care - Jemma Bull CM - 11/03/2024 3:31 PM EST Initial Case Management Care Plan Note Assessment completed with patient and/or patient's inside sales representative, medical record review and discussion with clinical team. CC met with the patient using social distancing. Provided a Case Coordination packet with contact information, CC pamphlet and Your Next Step: Care Outside the Hospital brochure to the patient and/or patient inside sales representative. Summary: 63 yo M admitted for IV antibiotics and L-BKA on 11/05/2024. CC met with the patient this afternoon. Patient is very pleasant & engaged. Patient reports he lives alone w/ his 3 pet cats, and he is mod independent with DME - primarily mobilizes with a knee scooter & uses DME in the bathroom. (+) drives. Patient plans to transition home from hospital with the resumption of home health services. Patient is active with [facility]. Patient went to a local wound care center twice weekly. Patient reports he has installed a pole with grab bars in his living room, and he plans to install two more throughout his home (in bedroom & bathroom). Additionally, patient removed his doors and measured the clearance in anticipation of accommodatinga wheelchair at home. Patient plans to use a pharmacy delivery & a grocery delivery system, and his good friend can, otherwise, assist w/ picking up controlled substances &/or incidentals. Inpatient rehab, acute vs sub-acute, discussed, as well. Patient is okay with inpatient rehab if recommended/unsafe to transition home. Patient denies SDOH concerns, though social work referral placed to assist w/ applying for paratransit transportation for follow up appts Anticipated transition plan: Home with resumption of home health services Caregiver/responsible person supports: SonBlas, is supportive & involved but lives 45 minutes away from the patient, so he reportedly relies primarily on his good friend, Bry, to help with IADL support, if needed. PCP: Lee Fabian MD - confirmed Anticipated transportation: TBD pending discharge dispo Friend can transport him home, if cleared for home Referrals made: Made per patient/family choice as outlined in the flowsheet -[facility] for resumption of SN & [facility], requested addition of PT & OT to POC Barriers to discharge: OR 11/05 Demo Coordinator - P2P requested ID plan PT/OT evals Problem: Adult Inpatient Plan of Care Goal: Readiness for Transition of Care Intervention: Mutually Develop Transition Plan Flowsheets (Taken 11/03/2024 1522) Equipment Currently Used at Home: (ambulates w/ knee scooter, uses rw to enter/exit vehicle; has transfer bench; pole w/ grab installed by his couch) other (see comments) walker, rolling tub bench Current Discharge Risk: physical impairment lives alone dependent with mobility/activities of daily living chronically ill Readmission Within the Last 30 Days: no previous admission in last 30 days Transportation Anticipated: family or friend will provide health plan transportation Transportation Concerns: none Concerns to be Addressed: home safety discharge planning Patient/Family Anticipated Services at Transition: (inpatient rehab) home health care custodial other (see comments) Patient/Family Anticipates Transition to: home with help/services inpatient rehabilitation facility Current Outpatient/Agency/Support Group: ([facility] - SN 3 weekly (wound care) & [facility] x 2 weekly) homecare agency Jemma Bull 11/03/2024 3:31 PM * Plan of Care - Belkys Diaz RN - 11/03/2024 3:22 AM EST Problem: Adult Inpatient Plan of Care Goal: Plan of Care Review Outcome: Progressing Flowsheets (Taken 11/03/2024 0322) Plan of Care Reviewed With: patient Progress: improving Outcome Evaluation: A/O, denies pain. Bilat foot dsg are c/d/i, baseline neuropathy. Moderate edemain legs. OOB with walker and stand by assist. Tolerating diet, pt voiding. Denies sob and cp, VSS. Antibiotics started, OR end of week. Plan ongoing Belkys Diaz 11/03/2024 3:22 AM documented in this encounter Plan of Treatment Upcoming Encounters Date Type Department Care Team (Late st Contact Info) Description 12/07/2024 1:30 PM EDT Appointment [facility] [place] - Electrophysiology [address] [place] [address] Gretel Hinds, ASSOCIATE THEATRE PROFESSOR [address] [address] 12/14/2024 2:00 PM EDT Office Visit [facility] [address] [address] Dallas Camejo MD [address] [place] [id number] 12/16/2024 8:30 AM EDT Office Visit [facility] Infectious Disease [address] [place] [address] Ena Mtz MD [address] [place] [address] Pending Results Name Type Priority Associated Diagnoses Date/Time Electrophysiology Study Electrophysiology Routine Pacemaker infection, subsequent encounter 11/17/2024 4:44 PM EST Transesophageal Echo-Anesthesia Echocardiography Routine 11/17/2024 1:50 PM EST Scheduled Referrals Name Type Priority Associated Diagnoses Orde r Schedule Amb Referral to Home Health Outpatient Referral Routine Endocarditis Ordered: 11/24/2024 documented as of this encounter Procedures Procedure Name Priority Date/Time Associated Diagnosis Comments POCT GLUCOSE, FINGERSTICK (CHARGE) Routine 11/25/2024 12:13 PM EST POCT GLUCOSE, FINGERSTICK (CHARGE) Routine 11/25/2024 8:40 AM EST POCT GLUCOSE, FINGERSTICK (CHARGE) Routine 11/24/2024 4:56 PM EST GLUCOSE, FINGERSTICK - POCT Routine 11/24/2024 12:01 PM EST POCT GLUCOSE, FINGERSTICK (CHARGE) Routine 11/24/2024 11:37 AM EST POCT GLUCOSE, FINGERSTICK (CHARGE) Routine 11/24/2024 7:52 AM EST COMPLETE BLOOD COUNT, WITHOUT DIFFERENTIAL Routine 11/24/2024 6:56 AM EST COMPREHENSIVE METABOLIC PANEL Routine 11/24/2024 6:56 AM EST POCT GLUCOSE, FINGERSTICK (CHARGE) Routine 11/23/2024 8:48 PM EST POCT GLUCOSE, FINGERSTICK (CHARGE) Routine 11/23/2024 4:35 PM EST POCT GLUCOSE, FINGERSTICK (CHARGE) Routine 11/23/2024 11:35 AM EST INFLUENZA A/B, RSV, SARS-COV-2 BALJINDER MULTIPLEX Routine 11/23/2024 10:45 AM EST POCT GLUCOSE, FINGERSTICK (CHARGE) Routine 11/23/2024 7:34 AM EST ERYTHROCYTE SEDIMENTATION RATE (ESR) Routine 11/23/2024 6:43 AM EST COMPLETE BLOOD COUNT, WITHOUT DIFFERENTIAL Routine 11/23/2024 6:43 AM EST C-REACTIVE PROTEIN Routine 11/23/2024 6:43 AM EST MAGNESIUM Routine 11/23/2024 6:43 AM EST CREATINE KINASE (CK) Routine 11/23/2024 6:43 AM EST HEPATIC FUNCTION PANEL Routine 11/23/2024 6:43 AM EST BASIC METABOLIC PANEL Routine 11/23/2024 6:43 AM EST POCT GLUCOSE, FINGERSTICK (CHARGE) Routine 11/22/2024 9:02 PM EST POCT GLUCOSE, FINGERSTICK (CHARGE) Routine 11/22/2024 4:36 PM EST PM LEADLESS SINGLE-CARDIAC CHAMBER EVAL W/PROGRAM (IN PERSON), [id number] Routine 11/22/2024 2:20 PM EST POCT GLUCOSE, FINGERSTICK (CHARGE) Routine 11/22/2024 11:36 AM EST OXIMETRY SLEEP SCREEN Routine 11/22/2024 9:59 AM EST POCT GLUCOSE, FINGERSTICK (CHARGE) Routine 11/22/2024 7:35 AM EST COMPLETE BLOOD COUNT, WITHOUT DIFFERENTIAL Routine 11/22/2024 7:31 AM EST MAGNESIUM Routine 11/22/2024 7:31 AM EST BASIC METABOLIC PANEL Routine 11/22/2024 7:31 AM EST POCT GLUCOSE, FINGERSTICK (CHARGE) Routine 11/21/2024 9:28 PM EST POCT GLUCOSE, FINGERSTICK (CHARGE) Routine 11/21/2024 4:49 PM EST POCT GLUCOSE, FINGERSTICK (CHARGE) Routine 11/21/2024 11:56 AM EST POCT GLUCOSE, FINGERSTICK (CHARGE) Routine 11/21/2024 7:45 AM EST COMPLETE BLOOD COUNT, WITHOUT DIFFERENTIAL Routine 11/21/2024 6:58 AM EST MAGNESIUM Routine 11/21/2024 6:58 AM EST BASIC METABOLIC PANEL Routine 11/21/2024 6:58 AM EST POCT GLUCOSE, FINGERSTICK (CHARGE) Routine 11/20/2024 8:16 PM EST POCT GLUCOSE, FINGERSTICK (CHARGE) Routine 11/20/2024 4:32 PM EST POCT GLUCOSE, FINGERSTICK (CHARGE) Routine 11/20/2024 12:07 PM EST POCT GLUCOSE, FINGERSTICK (CHARGE) Routine 11/20/2024 7:58 AM EST COMPLETE BLOOD COUNT, WITHOUT DIFFERENTIAL Routine 11/20/2024 6:59 AM EST MAGNESIUM Routine 11/20/2024 6:59 AM EST BASIC METABOLIC PANEL Routine 11/20/2024 6:59 AM EST POCT GLUCOSE, FINGERSTICK (CHARGE) Routine 11/19/2024 4:13 PM EST URINALYSIS WITH REFLEX TO MICROSCOPIC Routine 11/19/2024 4:00 PM EST UREA NITROGEN, URINE, RANDOM Routine 11/19/2024 4:00 PM EST SODIUM, URINE, RANDOM Routine 11/19/2024 4:00 PM EST OSMOLALITY, URINE Routine 11/19/2024 4:00 PM EST CREATININE, URINE, RANDOM Routine 11/19/2024 4:00 PM EST CHLORIDE, URINE, RANDOM Routine 11/19/2024 4:00 PM EST ENDOVASCULAR PROCEDURE Routine 11/19/2024 2:22 PM EST Endocarditis POCT GLUCOSE, FINGERSTICK (CHARGE) Routine 11/19/2024 11:39 AM EST POCT GLUCOSE, FINGERSTICK (CHARGE) Routine 11/19/2024 8:06 AM EST COMPLETE BLOOD COUNT, WITHOUT DIFFERENTIAL Routine 11/19/2024 7:54 AM EST MAGNESIUM Routine 11/19/2024 7:54 AM EST BASIC METABOLIC PANEL Routine 11/19/2024 7:54 AM EST POCT GLUCOSE, FINGERSTICK (CHARGE) Routine 11/18/2024 9:04 PM EST POCT GLUCOSE, FINGERSTICK (CHARGE) Routine 11/18/2024 4:56 PM EST POCT GLUCOSE, FINGERSTICK (CHARGE) Routine 11/18/2024 12:00 PM EST POCT GLUCOSE, FINGERSTICK (CHARGE) Routine 11/18/2024 7:53 AM EST PM SINGLE LEAD EVAL WITH PROGRAM,[id number] Routine 11/18/2024 7:45 AM EST COMPLETE BLOOD COUNT, WITHOUT DIFFERENTIAL Routine 11/18/2024 7:15 AM EST MAGNESIUM Routine 11/18/2024 7:15 AM EST CREATINE KINASE (CK) Routine 11/18/2024 7:15 AM EST BASIC METABOLIC PANEL Routine 11/18/2024 7:15 AM EST XR CHEST 1 VIEW Routine 11/17/2024 5:48 PM EST POCT GLUCOSE, FINGERSTICK (CHARGE) Routine 11/17/2024 5:00 PM EST INSERT/REPLACE LEADLESS PACEMAKER Routine 11/17/2024 4:44 PM EST Pacemaker infection, subsequent encounter EXTRACTION LEAD(S) LASER FROM DUAL PM SYSTEM Routine 11/17/2024 4:44 PM EST Pacemaker infection, subsequent encounter TRANSESOPHAGEAL ECHO-ANESTHESIA Routine 11/17/2024 1:50 PM EST Procedure Note - Guido Malagon MD - 11/17/2024 1:50 PM ESTThis note is in progress. ? ? Right ventricular systolic function is mildly reduced. A pacer wire ispresent in the right ventricle. ? ? Left ventricular systolic function is moderately decreased with anestimated ejection fraction of 35-39%. There is global hypokinesis withoutregional variation. ? ? There is a patent foramen ovale with predominant left to right shuntingindicated by color Doppler. A watchman device is noted. No flow around it.It was noted a small protuberance previously seen in other echos.Difficult to assess if this is a vegetation. ? ? There is mild to moderate tricuspid regurgitation. ? ? There is moderate functional mitral regurgitation. There is no mitralvalve stenosis. Leaflet tethering is noted. POST PROCEDURE CONCLUSIONS Findings Technical Details Doppler color flow mapping and pulsed wave and/or continuous wave with spectral doppler interrogation, complete, were performed during the study. General anesthesia was given. Overall the study quality was adequate. Sedation was performed by anesthesiology. Left Ventricle Left ventricular systolic function is moderately decreased with an estimated ejection fraction of 35-39%. There is global hypokinesis without regional variation. Right Ventricle Right ventricular systolic function is mildly reduced. Wall thickness is normal. A pacer wire is present in the right ventricle. Right Atrium There is a patent foramen ovale with predominant left to right shunting indicated by color Doppler. Mitral Valve There is moderate functional mitral regurgitation.There is no mitral valve stenosis. Tricuspid Valve There is mild to moderate tricuspid regurgitation. Aortic Valve The aortic valve is tricuspid. There is no aortic regurgitation or stenosis. Pulmonic Valve There is no pulmonic valve stenosis. Ascending Aorta There is a sessile atheroma protruding less than 5 mm into the lumen (Grade 3). Study Details TATIANNA was performed at the surgeon's request. Prior the procedure, informed consent was discussed with and obtained from the patient. A time-out was done in the operating room to confirm the patient and procedure. After introduction of general anesthesia, endotracheal intubation, and OG decompression, the TATIANNA probe was placed atraumatically in the esophagus. TATIANNA was performed for pre-surgical evaluation of cardiac structure and function, and post-surgical evaluation of ventricular function. Pre- and post-CPB 2D imaging, Doppler, and color flow evaluation were performed. At the end of the surgical procedure the probe was removed, and no apparent complications were noted. The patient was transported to the ICU with oxygen and full ASA monitoring. All pre- and post-bypass echo findings were discussed with the surgeon intraoperatively. Wall Scoring Baseline Score Index: 2.00 The left ventricular wall motion is globally hypokinetic. POCT GLUCOSE, FINGERSTICK (CHARGE) Routine 11/17/2024 1:26 PM EST POCT GLUCOSE, FINGERSTICK (CHARGE) Routine 11/17/2024 11:18 AM EST PHOSPHORUS Routine 11/17/2024 8:16 AM EST MAGNESIUM Routine 11/17/2024 8:16 AM EST POCT GLUCOSE, FINGERSTICK (CHARGE) Routine 11/17/2024 7:20 AM EST COMPLETE BLOOD COUNT, WITHOUT DIFFERENTIAL Routine 11/17/2024 5:00 AM EST COMPREHENSIVE METABOLIC PANEL Routine 11/17/2024 5:00 AM EST POCT GLUCOSE, FINGERSTICK (CHARGE) Routine 11/16/2024 8:09 PM EST POCT GLUCOSE, FINGERSTICK (CHARGE) Routine 11/16/2024 4:19 PM EST POCT GLUCOSE, FINGERSTICK (CHARGE) Routine 11/16/2024 12:04 PM EST POCT GLUCOSE, FINGERSTICK (CHARGE) Routine 11/16/2024 7:37 AM EST COMPLETE BLOOD COUNT, WITHOUT DIFFERENTIAL Routine 11/16/2024 7:23 AM EST TYPE AND SCREEN Routine 11/16/2024 7:23 AM EST PHOSPHORUS Routine 11/16/2024 7:23 AM EST MAGNESIUM Routine 11/16/2024 7:23 AM EST BASIC METABOLIC PANEL Routine 11/16/2024 7:23 AM EST POCT GLUCOSE, FINGERSTICK (CHARGE) Routine 11/15/2024 8:14 PM EST POCT GLUCOSE, FINGERSTICK (CHARGE) Routine 11/15/2024 4:10 PM EST POCT GLUCOSE, FINGERSTICK (CHARGE) Routine 11/15/2024 11:09 AM EST PREPARE RBC'S Routine 11/15/2024 10:54 AM EST PROBNP, N-TERMINAL Routine 11/15/2024 8:08 AM EST COMPLETE BLOOD COUNT, WITHOUT DIFFERENTIAL Routine 11/15/2024 8:08 AM EST PHOSPHORUS Routine 11/15/2024 8:08 AM EST MAGNESIUM Routine 11/15/2024 8:08 AM EST BASIC METABOLIC PANEL Routine 11/15/2024 8:08 AM EST POCT GLUCOSE, FINGERSTICK (CHARGE) Routine 11/15/2024 7:36 AM EST POCT GLUCOSE, FINGERSTICK (CHARGE) Routine 11/14/2024 7:51 PM EST POCT GLUCOSE, FINGERSTICK (CHARGE) Routine 11/14/2024 4:10 PM EST POCT GLUCOSE, FINGERSTICK (CHARGE) Routine 11/14/2024 11:33 AM EST COMPLETE BLOOD COUNT, WITHOUT DIFFERENTIAL Routine 11/14/2024 10:31 AM EST PHOSPHORUS Routine 11/14/2024 10:31 AM EST MAGNESIUM Routine 11/14/2024 10:31 AM EST BASIC METABOLIC PANEL Routine 11/14/2024 10:31 AM EST POCT GLUCOSE, FINGERSTICK (CHARGE) Routine 11/14/2024 7:45 AM EST POCT GLUCOSE, FINGERSTICK (CHARGE) Routine 11/13/2024 11:30 PM EST POCT GLUCOSE, FINGERSTICK (CHARGE) Routine 11/13/2024 9:19 PM EST POCT GLUCOSE, FINGERSTICK (CHARGE) Routine 11/13/2024 4:45 PM EST POCT GLUCOSE, FINGERSTICK (CHARGE) Routine 11/13/2024 11:54 AM EST POCT GLUCOSE, FINGERSTICK (CHARGE) Routine 11/13/2024 8:12 AM EST PROBNP, N-TERMINAL Routine 11/13/2024 7:30 AM EST COMPLETE BLOOD COUNT, WITHOUT DIFFERENTIAL Routine 11/13/2024 7:30 AM EST PHOSPHORUS Routine 11/13/2024 7:30 AM EST MAGNESIUM Routine 11/13/2024 7:30 AM EST BASIC METABOLIC PANEL Routine 11/13/2024 7:30 AM EST POCT GLUCOSE, FINGERSTICK (CHARGE) Routine 11/13/2024 3:59 AM EST POCT GLUCOSE, FINGERSTICK (CHARGE) Routine 11/13/2024 12:27 AM EST POCT GLUCOSE, FINGERSTICK (CHARGE) Routine 11/12/2024 8:32 PM EST POCT GLUCOSE, FINGERSTICK (CHARGE) Routine 11/12/2024 4:41 PM EST MRI BRAIN W/O CONTRAST Routine 11/12/2024 1:43 PM EST PM DUAL LEAD EVAL WITH PROGRAMMING, [id number] Routine 11/12/2024 1:15 PM EST POCT GLUCOSE, FINGERSTICK (CHARGE) Routine 11/12/2024 11:45 AM EST POCT GLUCOSE, FINGERSTICK (CHARGE) Routine 11/12/2024 8:01 AM EST COMPLETE BLOOD COUNT, WITHOUT DIFFERENTIAL Routine 11/12/2024 5:00 AM EST PHOSPHORUS Routine 11/12/2024 5:00 AM EST MAGNESIUM Routine 11/12/2024 5:00 AM EST BASIC METABOLIC PANEL Routine 11/12/2024 5:00 AM EST POCT GLUCOSE, FINGERSTICK (CHARGE) Routine 11/12/2024 4:51 AM EST POCT GLUCOSE, FINGERSTICK (CHARGE) Routine 11/12/2024 12:42 AM EST POCT GLUCOSE, FINGERSTICK (CHARGE) Routine 11/12/2024 12:21 AM EST POCT GLUCOSE, FINGERSTICK (CHARGE) Routine 11/11/2024 9:17 PM EST POCT GLUCOSE, FINGERSTICK (CHARGE) Routine 11/11/2024 5:06 PM EST PM DUAL LEAD EVAL WITH PROGRAMMING, [id number] Routine 11/11/2024 4:33 PM EST ECHOCARDIOGRAM TRANSESOPHAGEAL Routine 11/11/2024 3:34 PM EST PHOSPHORUS Routine 11/11/2024 2:00 PM EST MAGNESIUM Routine 11/11/2024 2:00 PM EST BASIC METABOLIC PANEL Routine 11/11/2024 2:00 PM EST POCT GLUCOSE, FINGERSTICK (CHARGE) Routine 11/11/2024 11:53 AM EST POCT GLUCOSE, FINGERSTICK (CHARGE) Routine 11/11/2024 7:31 AM EST POCT GLUCOSE, FINGERSTICK (CHARGE) Routine 11/11/2024 2:35 AM EST PROBNP, N-TERMINAL Routine 11/11/2024 2:00 AM EST COMPLETE BLOOD COUNT, WITHOUT DIFFERENTIAL Routine 11/11/2024 2:00 AM EST PHOSPHORUS Routine 11/11/2024 2:00 AM EST MAGNESIUM Routine 11/11/2024 2:00 AM EST CREATINE KINASE (CK) Routine 11/11/2024 2:00 AM EST HEPATIC FUNCTION PANEL Routine 11/11/2024 2:00 AM EST BASIC METABOLIC PANEL Routine 11/11/2024 2:00 AM EST POCT GLUCOSE, FINGERSTICK (CHARGE) Routine 11/10/2024 7:55 PM EST XR CHEST 1 VIEW-PORTABLE Routine 11/10/2024 6:13 PM EST POCT GLUCOSE, FINGERSTICK (CHARGE) Routine 11/10/2024 4:01 PM EST PHOSPHORUS Routine 11/10/2024 12:03 PM EST MAGNESIUM Routine 11/10/2024 12:03 PM EST BASIC METABOLIC PANEL Routine 11/10/2024 12:03 PM EST POCT GLUCOSE, FINGERSTICK (CHARGE) Routine 11/10/2024 11:36 AM EST POCT GLUCOSE, FINGERSTICK (CHARGE) Routine 11/10/2024 7:42 AM EST POCT GLUCOSE, FINGERSTICK (CHARGE) Routine 11/10/2024 2:02 AM EST COMPLETE BLOOD COUNT, WITHOUT DIFFERENTIAL Routine 11/10/2024 12:04 AM EST PHOSPHORUS Routine 11/10/2024 12:04 AM EST MAGNESIUM Routine 11/10/2024 12:04 AM EST BASIC METABOLIC PANEL Routine 11/10/2024 12:04 AM EST POCT GLUCOSE, FINGERSTICK (CHARGE) Routine 11/09/2024 8:03 PM EST POCT GLUCOSE, FINGERSTICK (CHARGE) Routine 11/09/2024 3:53 PM EST POCT GLUCOSE, FINGERSTICK (CHARGE) Routine 11/09/2024 11:47 AM EST PROCALCITONIN Routine 11/09/2024 10:04 AM EST PROBNP, N-TERMINAL Routine 11/09/2024 10:04 AM EST POCT GLUCOSE, FINGERSTICK (CHARGE) Routine 11/09/2024 7:29 AM EST COMPLETE BLOOD COUNT, WITHOUT DIFFERENTIAL Routine 11/09/2024 1:50 AM EST PHOSPHORUS Routine 11/09/2024 1:50 AM EST MAGNESIUM Routine 11/09/2024 1:50 AM EST BASIC METABOLIC PANEL Routine 11/09/2024 1:50 AM EST POCT GLUCOSE, FINGERSTICK (CHARGE) Routine 11/09/2024 1:41 AM EST POCT GLUCOSE, FINGERSTICK (CHARGE) Routine 11/08/2024 8:45 PM EST POCT GLUCOSE, FINGERSTICK (CHARGE) Routine 11/08/2024 7:58 PM EST CENTRAL LINE Routine 11/08/2024 6:31 PM EST PHOSPHORUS Routine 11/08/2024 5:46 PM EST MAGNESIUM Routine 11/08/2024 5:46 PM EST BLOOD GAS, VENOUS Routine 11/08/2024 5:46 PM EST BASIC METABOLIC PANEL Routine 11/08/2024 5:46 PM EST XR CHEST 1 VIEW-PORTABLE STAT 11/08/2024 5:34 PM EST POCT GLUCOSE, FINGERSTICK (CHARGE) Routine 11/08/2024 5:34 PM EST POCT GLUCOSE, FINGERSTICK (CHARGE) Routine 11/08/2024 11:28 AM EST POCT GLUCOSE, FINGERSTICK (CHARGE) Routine 11/08/2024 7:[address] HEAD W W/O CONTRAST Routine 11/08/2024 3:10 AM EST POCT GLUCOSE, FINGERSTICK (CHARGE) Routine 11/08/2024 2:03 AM EST HIGH SENSITIVITY TROPONIN T CARD 11/08/2024 12:05 AM EST PROBNP, N-TERMINAL Routine 11/08/2024 12:05 AM EST COMPLETE BLOOD COUNT, WITHOUT DIFFERENTIAL Routine 11/08/2024 12:05 AM EST PHOSPHORUS Routine 11/08/2024 12:05 AM EST MAGNESIUM Routine 11/08/2024 12:05 AM EST CREATINE KINASE (CK) Routine 11/08/2024 12:05 AM EST HEPATIC FUNCTION PANEL Routine 11/08/2024 12:05 AM EST BASIC METABOLIC PANEL Routine 11/08/2024 12:05 AM EST POCT GLUCOSE, FINGERSTICK (CHARGE) Routine 11/07/2024 7:47 PM EST RESPIRATORY PCR PANEL Routine 11/07/2024 6:30 PM EST HIGH SENSITIVITY TROPONIN T CARD 11/07/2024 4:12 PM EST PHOSPHORUS Routine 11/07/2024 4:12 PM EST MAGNESIUM Routine 11/07/2024 4:12 PM EST BASIC METABOLIC PANEL Routine 11/07/2024 4:12 PM EST POCT GLUCOSE, FINGERSTICK (CHARGE) Routine 11/07/2024 3:53 PM EST ECG 12-LEAD Routine 11/07/2024 2:58 PM EST BLOOD CULTURE Routine 11/07/2024 1:02 PM EST BLOOD CULTURE Routine 11/07/2024 12:57 PM EST BLOOD GAS, ARTERIAL Routine 11/07/2024 12:36 PM EST POCT GLUCOSE, FINGERSTICK (CHARGE) Routine 11/07/2024 12:29 PM EST XR CHEST 1 VIEW-PORTABLE STAT 11/07/2024 10:17 AM EST HIGH SENSITIVITY TROPONIN T Routine 11/07/2024 8:13 AM EST PROBNP, N-TERMINAL Routine 11/07/2024 8:13 AM EST COMPLETE BLOOD COUNT, WITHOUT DIFFERENTIAL Routine 11/07/2024 8:13 AM EST PHOSPHORUS Routine 11/07/2024 8:13 AM EST MAGNESIUM Routine 11/07/2024 8:13 AM EST COMPREHENSIVE METABOLIC PANEL Routine 11/07/2024 8:13 AM EST POCT GLUCOSE, FINGERSTICK (CHARGE) Routine 11/07/2024 7:33 AM EST POCT GLUCOSE, FINGERSTICK (CHARGE) Routine 11/07/2024 2:07 AM EST POCT GLUCOSE, FINGERSTICK (CHARGE) Routine 11/06/2024 9:23 PM EST POCT GLUCOSE, FINGERSTICK (CHARGE) Routine 11/06/2024 5:24 PM EST POCT GLUCOSE, FINGERSTICK (CHARGE) Routine 11/06/2024 2:45 PM EST POCT GLUCOSE, FINGERSTICK (CHARGE) Routine 11/06/2024 12:10 PM EST POCT GLUCOSE, FINGERSTICK (CHARGE) Routine 11/06/2024 7:51 AM EST COMPLETE BLOOD COUNT, WITH DIFFERENTIAL Routine 11/06/2024 4:58 AM EST BLOOD CULTURE Routine 11/06/2024 4:58 AM EST BLOOD CULTURE Routine 11/06/2024 4:58 AM EST PHOSPHORUS Routine 11/06/2024 4:58 AM EST MAGNESIUM Routine 11/06/2024 4:58 AM EST COMPREHENSIVE METABOLIC PANEL Routine 11/06/2024 4:58 AM EST POCT GLUCOSE, FINGERSTICK (CHARGE) Routine 11/06/2024 1:17 AM EST POCT GLUCOSE, FINGERSTICK (CHARGE) Routine 11/05/2024 11:05 PM EST POCT GLUCOSE, FINGERSTICK (CHARGE) Routine 11/05/2024 6:10 PM EST POCT GLUCOSE, FINGERSTICK (CHARGE) Routine 11/05/2024 3:37 PM EST PATHOLOGY REPORT Routine 11/05/2024 2:11 PM EST POCT GLUCOSE, FINGERSTICK (CHARGE) Routine 11/05/2024 12:54 PM EST CREATINE KINASE, REFLEX TO CKMB Routine 11/05/2024 7:12 AM EST PROTIME-INR Routine 11/05/2024 7:12 AM EST COMPLETE BLOOD COUNT, WITHOUT DIFFERENTIAL Routine 11/05/2024 7:12 AM EST HEPATIC FUNCTION PANEL Routine 11/05/2024 7:12 AM EST BASIC METABOLIC PANEL Routine 11/05/2024 7:12 AM EST POCT GLUCOSE, FINGERSTICK (CHARGE) Routine 11/05/2024 6:26 AM EST POCT GLUCOSE, FINGERSTICK (CHARGE) Routine 11/05/2024 1:46 AM EST XR CHEST 1 VIEW-PORTABLE STAT 11/04/2024 11:17 PM EST POCT GLUCOSE, FINGERSTICK (CHARGE) Routine 11/04/2024 8:52 PM EST POCT GLUCOSE, FINGERSTICK (CHARGE) Routine 11/04/2024 5:00 PM EST POCT GLUCOSE, FINGERSTICK (CHARGE) Routine 11/04/2024 12:43 PM EST COMPLETE BLOOD COUNT, WITHOUT DIFFERENTIAL Routine 11/04/2024 11:19 AM EST BLOOD CULTURE Routine 11/04/2024 11:03 AM EST BLOOD CULTURE Routine 11/04/2024 11:03 AM EST BASIC METABOLIC PANEL Routine 11/04/2024 10:50 AM EST ECHOCARDIOGRAM (TTE) COMPREHENSIVE (CONTRAST PRN) Routine 11/04/2024 9:05 AM EST POCT GLUCOSE, FINGERSTICK (CHARGE) Routine 11/04/2024 7:26 AM EST PREPARE RBC'S Routine 11/04/2024 6:49 AM EST POCT GLUCOSE, FINGERSTICK (CHARGE) Routine 11/03/2024 9:25 PM EST POCT GLUCOSE, FINGERSTICK (CHARGE) Routine 11/03/2024 5:50 PM EST POCT GLUCOSE, FINGERSTICK (CHARGE) Routine 11/03/2024 11:43 AM EST CREATINE KINASE (CK) Routine 11/03/2024 10:52 AM EST POCT GLUCOSE, FINGERSTICK (CHARGE) Routine 11/03/2024 7:56 AM EST MRSA PCR SCREEN, QUALITATIVE Routine 11/03/2024 3:24 AM EST ECG 12-LEAD Routine 11/02/2024 9:34 PM EST POCT GLUCOSE, FINGERSTICK (CHARGE) Routine 11/02/2024 9:19 PM EST (REPORT) BLOOD CULTURE ID PCR PANEL Routine 11/02/2024 8:00 PM EST COMPLETE BLOOD COUNT, WITH DIFFERENTIAL Routine 11/02/2024 8:00 PM EST VITAMIN D, 25-HYDROXY Routine 11/02/2024 8:00 PM EST BLOOD CULTURE Routine 11/02/2024 8:00 PM EST BLOOD CULTURE Routine 11/02/2024 8:00 PM EST ERYTHROCYTE SEDIMENTATION RATE (ESR) Routine 11/02/2024 8:00 PM EST PROTIME-INR Routine 11/02/2024 8:00 PM EST C-REACTIVE PROTEIN Routine 11/02/2024 8:00 PM EST TRANSFERRIN Routine 11/02/2024 8:00 PM EST PREALBUMIN Routine 11/02/2024 8:00 PM EST ALBUMIN Routine 11/02/2024 8:00 PM EST BASIC METABOLIC PANEL Routine 11/02/2024 8:00 PM EST TYPE AND SCREEN Routine 11/02/2024 7:56 PM EST POCT GLUCOSE, FINGERSTICK (CHARGE) Routine 11/02/2024 6:48 PM EST documented in this encounter Results * (ABNORMAL) POCT Glucose, Fingerstick (11/25/2024 12:13 PM EST) POC Glucose 120(H) 65 - 99 mg/dL 11/25/2024 12:14 PM EST Blood specimen / Unknown 11/25/2024 12:13 PM EST 11/25/2024 12:14 PM EST Dallas Camejo MD POINT OF CARE TEST O JOSEPH Performing Organization Address [facility] Number [facility] See Below * (ABNORMAL) POCT Glucose, Fingerstick (11/25/2024 8:40 AM EST) POC Glucose 150(H) 65 - 99 mg/dL 11/25/2024 8:41 AM EST Blood specimen / Unknown 11/25/2024 8:40 AM EST 11/25/2024 8:41 AM EST Dallas Camejo MD POINT OF CARE TEST O RDGHANSHYAM Performing Organization Address [facility] Phone Number [facility] See Below * (ABNORMAL) POCT Glucose, Fingerstick (11/24/2024 4:56 PM EST) POC Glucose 105(H) 65 - 99 mg/dL 11/24/2024 5:00 PM EST Blood specimen / Unknown 11/24/2024 4:56 PM EST 11/24/2024 5:00 PM EST Dallas Camejo MD POINT OF CARE TEST O RDGHANSHYAM Performing Organization Address [facility]/ZIP Co de Phone Number [facility] See Below * Glucose, Fingerstick (POCT) (TID AC) (11/24/2024 12:01 PM EST) 11/24/2024 12:0 1 PM EST Corbin Lamb SH[place] POCT ORDERABLES - DEVICE * (ABNORMAL) POCT Glucose, Fingerstick (11/24/2024 11:37 AM EST) POC Glucose 104(H) 65 - 99 mg/dL 11/24/2024 12:03 PM EST Blood specimen / Unknown 11/24/2024 11:37 AM EST 11/24/2024 12:03 PM EST Dallas Camejo MD POINT OF CARE TEST O RDERALUCILLE [facility] See Below * (ABNORMAL) POCT Glucose, Fingerstick (11/24/2024 7:52 AM EST) POC Glucose 103(H) 65 - 99 mg/dL 11/24/2024 8:11 AM EST Blood specimen / Unknown 11/24/2024 7:52 AM EST 11/24/2024 8:11 AM EST Dallas Camejo MD POINT OF CARE TEST O RDERABLES [facility] See Below * (ABNORMAL) Complete Blood Count WITHOUT Differential - in AM (11/24/2024 6:56 AM EST) Pathologist [facility] White Blood Cell Count 10.0 4.0 - 11.0 Thou/uL 11/24/2024 9:12 AM [facility] Platelet Count 366 150 - 450 Thou/uL 11/24/2024 9:12 AM [facility] Hemoglobin 9.0(L) 13.0 - 17.7 g/dL 11/24/2024 9:12 AM [facility] Hematocrit 29.5(L) 39.0 - 54.0 % 11/24/2024 9:12 AM [facility] Red Blood Cell Count 3.25(L) 4.50 - 6.20 Mil/uL 11/24/2024 9:12 AM [facility] MCV 91 80 - 100 fL 11/24/2024 9:12 AM [facility] MCH 27.7 27.0 - 31.0 pg 11/24/2024 9:12 AM [facility] MCHC 30.5 30.0 - 36.0 g/dL 11/24/2024 9:12 AM [facility] RDW 18.0(H) 11.5 - 14.5 % 11/24/2024 9:12 AM [facility] MPV 10.8 7.5 - 12.5 fL 11/24/2024 9:12 AM [facility] Blood Blood specimen / Unknown 11/24/2024 6:56 AM EST 11/24/2024 8:52 AM EST Gianluca Calles MD [place] [address], [place] [address] * (ABNORMAL) Comprehensive Metabolic Panel (AM) (11/24/2024 6:56 AM EST) Glucose 99 65 - 99 mg/dL 11/24/2024 9:28 AM [facility] Comment:Fasting: <100 mg/dL, Non-Fasting: <200 mg/dL (ADA 2005) Blood Urea Nitrogen (BUN) 35(H) 8 - 21 mg/dL 11/24/2024 9:28 AM [facility] Creatinine 1.6(H) 0.5 - 1.3 mg/dL 11/24/2024 9:28 AM [facility] eGFR 48(L) >59 11/24/2024 9:28 AM [facility] Comment:CKD-EPI (2020) in mL /min/1.73 sq meters. Sodium 139 136 - 145 mmol/L 11/24/2024 9:28 AM [facility] Potassium 3.8 3.4 - 5.3 mmol/L 11/24/2024 9:28 AM [facility] Chloride 102 98 - 107 mmol/L 11/24/2024 9:28 AM [facility] CO2 24 22 - 33 mmol/L 11/24/2024 9:28 AM [facility] Calcium 8.9 8.7 - 10.5 mg/dL 11/24/2024 9:28 AM [facility] Alkaline Phosphatase 97 45 - 128 U/L 11/24/2024 9:28 AM [facility] Aspartate Aminotrans (AST) 14 10 - 55 U/L 11/24/2024 9:28 AM [facility] Alanine Aminotrans (ALT) 20 10 - 55 U/L 11/24/2024 9:28 AM [facility] Bilirubin, Total 0.2 0.2 - 1.0 mg/dL 11/24/2024 9:28 AM [facility] Protein, Total 6.7 6.3 - 8.3 g/dL 11/24/2024 9:28 AM [facility] Albumin 3.1(L) 3.4 - 4.8 g/dL 11/24/2024 9:28 AM [facility] BUN/Creatinine Ratio 22 10.0 - 25.0 Ratio 11/24/2024 9:28 AM [facility] Globulin 3.6 1.5 - 3.9 g/dL 11/24/2024 9:28 AM [facility] Albumin/Globulin Ratio 0.9(L) 1.0 - 3.0 Ratio 11/24/2024 9:28 AM [facility] Anion Gap 13 7 - 17 11/24/2024 9:28 AM [facility] Blood Blood specimen / Unknown 11/24/2024 6:56 AM EST 11/24/2024 8:52 AM EST Gianluca Calles MD LAB BLOOD ORDERABLES [address] [address], [address] [address] * (ABNORMAL) POCT Glucose, Fingerstick (11/23/2024 8:48 PM EST) POC Glucose 116(H) 65 - 99 mg/dL 11/23/2024 8:49 PM EST Blood specimen / Unknown 11/23/2024 8:48 PM EST 11/23/2024 8:49 PM EST Dallas Camejo MD POINT OF CARE TEST O RDERABLES Performing Organization Address [facility] See Below * POCT Glucose, Fingerstick (11/23/2024 4:35 PM EST) POC Glucose 84 65 - 99 mg/dL 11/23/2024 4:36 PM EST Blood specimen / Unknown 11/23/2024 4:35 PM EST 11/23/2024 4:36 PM EST Dallas Camejo MD POINT OF CARE TEST O RDERALUCILLE Performing Organization Address [facility] See Below * (ABNORMAL) POCT Glucose, Fingerstick (11/23/2024 11:35 AM EST) Pathologist [facility] POC Glucose 151(H) 65 - 99 mg/dL 11/23/2024 11:36 AM EST Blood specimen / Unknown 11/23/2024 11:35 AM EST 11/23/2024 11:36 AM EST Dallas Camejo MD POINT OF CARE TEST O RDERABLES Performing Organization Address [facility] See Below * Influenza A/B, RSV, SARS-CoV-2 BALJINDER Multiplex (FLUVID) (11/23/2024 10:45 AM EST) [facility] Influenza A Virus Not Detected Not Detected 11/23/2024 12:00 PM [facility] Influenza B Virus Not Detected Not Detected 11/23/2024 12:00 PM [facility] SARS-CoV-2 Not Detected Not Detected 11/23/2024 12:00 PM [facility] Respiratory Syncytial Virus Not Detected Not Detected 11/23/2024 12:00 PM [facility] Comment Negative results do not preclude SARS-CoV-2, Influenza or RSV infection and should not be used as the sole basis for treatment or other patient management decisions. 11/23/2024 12:00 PM EST [facility] Swab, Nasopharyngeal Nasopharyngeal swab / Unknown 11/23/2024 10:45 AM EST 11/23/2024 11:08 AM EST Gianluca Calles MD MICROBIOLOGY - GENER AL ORDERABLES Performing Organization Address [facility] [place] [address], [place] [address] * (ABNORMAL) POCT Glucose, Fingerstick (11/23/2024 7:34 AM EST) POC Glucose 126(H) 65 - 99 mg/dL 11/23/2024 7:35 AM EST Blood specimen / Unknown 11/23/2024 7:34 AM EST 11/23/2024 7:35 AM EST Dallas Camejo MD POINT OF CARE TEST O RDERABLES Performing Organization Address City/[facility] Co de Phone Number HOSPITAL LAB See Below * (ABNORMAL) C-REACTIVE PROTEIN (11/23/2024 6:43 AM EST) Pathologist [facility] C-Reactive Protein 4.88(H) 0 - 0.49 mg/dL 11/23/2024 11:53 AM EST [facility] 11/23/2024 6:43 AM EST 11/23/2024 6:49 AM EST Gianluca Calles MD LAB BLOOD ORDERABLES Performing Organization Address [facility] Co de Phone Number [address] [address], [address] [address] * (ABNORMAL) Erythrocyte Sedimentation Rate (ESR) (11/23/2024 6:43 AM EST) Erythrocyte Sediment Rate (ESR) 62(H) <20 MM/HR 11/23/2024 12:07 PM EST [facility] Blood specimen / Unknown 11/23/2024 6:43 AM EST 11/23/2024 6:49 AM EST Gianluca Calles MD LAB BLOOD ORDERABLES [address] [address], [address] [address] * (ABNORMAL) HEPATIC FUNCTION PANEL (11/23/2024 6:43 AM EST) Pathologist [facility] Alkaline Phosphatase 103 45 - 128 U/L 11/23/2024 11:53 AM [facility] Aspartate Aminotrans (AST) 22 10 - 55 U/L 11/23/2024 11:53 AM [facility] Alanine Aminotrans (ALT) 28 10 - 55 U/L 11/23/2024 11:53 AM [facility] Bilirubin, Total 0.2 0.2 - 1.0 mg/dL 11/23/2024 11:53 AM [facility] Protein, Total 6.6 6.3 - 8.3 g/dL 11/23/2024 11:53 AM [facility] Albumin 3.1(L) 3.4 - 4.8 g/dL 11/23/2024 11:53 AM [facility] Bilirubin, Direct 0.1 0 - 0.2 mg/dL 11/23/2024 11:53 AM [facility] Globulin 3.5 1.5 - 3.9 g/dL 11/23/2024 11:53 AM [facility] Albumin/Globulin Ratio 0.9(L) 1.0 - 3.0 Ratio 11/23/2024 11:53 AM [facility] 11/23/2024 6:43 AM EST 11/23/2024 6:49 AM EST Gianluca Calles MD LAB BLOOD ORDERABLES Performing Organization Address City/[facility]/ZIP Co de Phone Number [address] [address], [address] [address] * CREATINE KINASE (CK) (11/23/2024 6:43 AM EST) Creatine Kinase (CK) 36 24 - 204 U/L 11/23/2024 11:53 AM [facility] 11/23/2024 6:43 AM EST 11/23/2024 6:49 AM EST Gianluca Calles MD LAB BLOOD ORDERABLES Performing Organization Address City/State/[facility] Co de Phone Number [address] [address], [address] [address] * (ABNORMAL) Complete Blood Count WITHOUT Differential - in AM (11/23/2024 6:43 AM EST) Pathologist [facility] White Blood Cell Count 10.8 4.0 - 11.0 Thou/uL 11/23/2024 7:01 AM [facility] Platelet Count 353 150 - 450 Thou/uL 11/23/2024 7:01 AM [facility] Hemoglobin 8.7(L) 13.0 - 17.7 g/dL 11/23/2024 7:01 AM [facility] Hematocrit 28.3(L) 39.0 - 54.0 % 11/23/2024 7:01 AM [facility] Red Blood Cell Count 3.14(L) 4.50 - 6.20 Mil/uL 11/23/2024 7:01 AM [facility] MCV 90 80 - 100 fL 11/23/2024 7:01 AM [facility] MCH 27.7 27.0 - 31.0 pg 11/23/2024 7:01 AM [facility] MCHC 30.7 30.0 - 36.0 g/dL 11/23/2024 7:01 AM [facility] RDW 18.0(H) 11.5 - 14.5 % 11/23/2024 7:01 AM [facility] MPV 10.4 7.5 - 12.5 fL 11/23/2024 7:01 AM [facility] Blood Blood specimen / Unknown 11/23/2024 6:43 AM EST 11/23/2024 6:49 AM EST Gianluca Calles MD [place] [address], [place] [address] * Magnesium (AM) (11/23/2024 6:43 AM EST) Magnesium 2.2 1.6 - 2.7 mg/dL 11/23/2024 7:22 AM [facility] Blood Blood specimen / Unknown 11/23/2024 6:43 AM EST 11/23/2024 6:49 AM EST Gianluca Calles MD LAB BLOOD ORDERABLES Performing Organization Address City/[facility]/[place] [address], [place] [address] * (ABNORMAL) Basic Metabolic Panel (AM) (11/23/2024 6:43 AM EST) Glucose 114(H) 65 - 99 mg/dL 11/23/2024 7:22 AM [facility] Comment:Fasting: <100 mg/dL, Non-Fasting: <200 mg/dL (ADA 2005) Blood Urea Nitrogen (BUN) 31(H) 8 - 21 mg/dL 11/23/2024 7:22 AM [facility] Creatinine 1.5(H) 0.5 - 1.3 mg/dL 11/23/2024 7:22 AM [facility] eGFR 52(L) >59 11/23/2024 7:22 AM [facility] Comment:CKD-EPI (2020) in mL /min/1.73 sq meters. Sodium 140 136 - 145 mmol/L 11/23/2024 7:22 AM [facility] Potassium 4.0 3.4 - 5.3 mmol/L 11/23/2024 7:22 AM [facility] Chloride 104 98 - 107 mmol/L 11/23/2024 7:22 AM [facility] CO2 25 22 - 33 mmol/L 11/23/2024 7:22 AM [facility] Anion Gap 11 7 - 17 11/23/2024 7:22 AM EST [facility] Calcium 9.0 8.7 - 10.5 mg/dL 11/23/2024 7:22 AM [facility] BUN/Creatinine Ratio 21 10.0 - 25.0 Ratio 11/23/2024 7:22 AM EST [facility] Blood Blood specimen / Unknown 11/23/2024 6:43 AM EST 11/23/2024 6:49 AM EST Gianluca Calles MD [place] [address], [place] [address] * (ABNORMAL) POCT Glucose, Fingerstick (11/22/2024 9:02 PM EST) POC Glucose 138(H) 65 - 99 mg/dL 11/22/2024 9:02 PM EST Blood specimen / Unknown 11/22/2024 9:02 PM EST 11/22/2024 9:03 PM EST Dallas Camejo MD POINT OF CARE TEST O RDERABLES [facility]OSPITAL LAB See Below * (ABNORMAL) POCT Glucose, Fingerstick (11/22/2024 4:36 PM EST) POC Glucose 128(H) 65 - 99 mg/dL 11/22/2024 4:37 PM EST Blood specimen / Unknown 11/22/2024 4:36 PM EST 11/22/2024 4:37 PM EST Dallas Camejo MD POINT OF CARE TEST O RDERABLES [facility]OSPITAL LAB See Below * PM LEADLESS SINGLE-CARDIAC CHAMBER EVAL W/PROGRAM (IN PERSON), [id number] (11/22/2024 2:20 PM EST) Date Time Interrogation Session [id number] PACEART Implantable Pulse Generator Calender Operator Helper [employer]onic PACEART Implantable Pulse Generator Model [id number] Micra AV2 PACEART Implantable Pulse Generator Serial Number [id number] PACEART Implantable Pulse Generator Type Pacemaker PACEART Implantable Pulse Generator Implant Date ,,19 0,000 PACEART Otf Setting Mode (NBG Code) VDD PACEART Otf Setting Lower Rate Limit 60 {beats}/m in PACEART Otf Setting Maximum Tracking Rate 120 {beats}/m in PACEART Otf Setting Maximum Sensor Rate 120 {beats}/m in PACEART Otf Setting JUSTIN Delay Low 20 ms PACEART RV Sensitivity 2.0 mV PACEART RV Pacing Pulse Width 0.24 ms PACEART RV Pacing Amplitude 1.88 V PACEART RA Lead Sensing Intrinsic Amplitude 1.5 m/s? ? ? PACEART RV Lead Pacing Threshold Amplitude 0.38 V PACEART RV Lead Pacing Threshold Pulse Width 0.24 ms PACEART Battery Remaining Longevity >120 mo PACEART Battery Voltage 3.14 V PACEART RV Percent Paced-since last reset 99.86 % PACEART Otf Statistic STOKER INSTALLATION MECHANIC Percent 100.00 % PACEART Otf Statistic VS Percent 0 % PACEART Anatomical Region Laterality Modality Other 11/22/2024 1:58 PM EST Narrative 11/28/2024 10:40 AM EST Micra AV leadless Pacemaker evaluation completed on B10E. Per patient request and verbal order from SHUBHAM Pitts: LRL increased from 50 bpm to 60 bpm. Presenting rhythm: AM/STOKER INSTALLATION MECHANIC @ 62 bpm. Underlying rhythm: CHB. AM/ST[employer]ER INSTALLATION MECHANIC pacing 81%, with total V-pacing 100%. Battery and testing results evaluated and within normal limits. Normal leadless pacemaker function. JOSUE Alvarenga Gianluca Calles MD CV CARDI[facility] SERVICES ORDERABLES * (ABNORMAL) POCT Glucose, Fingerstick (11/22/2024 11:36 AM EST) POC Glucose 174(H) 65 - 99 mg/dL 11/22/2024 11:42 AM EST Blood specimen / Unknown 11/22/2024 11:36 AM EST 11/22/2024 11:42 AM EST Dallas Camejo MD POINT OF CARE TEST O RDERABLES HOSPITAL LAB See Below * (ABNORMAL) POCT Glucose, Fingerstick (11/22/2024 7:35 AM EST) Pathologist [facility] POC Glucose 194(H) 65 - 99 mg/dL 11/22/2024 7:37 AM EST Blood specimen / Unknown 11/22/2024 7:35 AM EST 11/22/2024 7:37 AM EST Dallas Camejo MD POINT OF CARE TEST O RDERABLES Performing Organization Address City/[facility]/ZIP Co de Phone Number [facility] See Below * Magnesium (AM) (11/22/2024 7:31 AM EST) [facility] Magnesium 2.0 1.6 - 2.7 mg/dL 11/22/2024 8:17 AM EST [facility] Blood (Plasma/Serum) 11/22/2024 7:31 AM EST 11/22/2024 7:54 AM EST Gianluca Calles MD LAB BLOOD ORDERABLES Performing Organization Address [facility] [place] [address], [place] [address] * (ABNORMAL) Complete Blood Count WITHOUT Differential - in AM (11/22/2024 7:31 AM EST) [facility] White Blood Cell Count 12.1(H) 4.0 - 11.0 Thou/uL 11/22/2024 8:19 AM [facility] Platelet Count 333 150 - 450 Thou/uL 11/22/2024 8:19 AM [facility] Hemoglobin 8.1(L) 13.0 - 17.7 g/dL 11/22/2024 8:19 AM [facility] Hematocrit 26.2(L) 39.0 - 54.0 % 11/22/2024 8:19 AM [facility] Red Blood Cell Count 2.88(L) 4.50 - 6.20 Mil/uL 11/22/2024 8:19 AM [facility] MCV 91 80 - 100 fL 11/22/2024 8:19 AM [facility] MCH 28.1 27.0 - 31.0 pg 11/22/2024 8:19 AM [facility] MCHC 30.9 30.0 - 36.0 g/dL 11/22/2024 8:19 AM [facility] RDW 18.0(H) 11.5 - 14.5 % 11/22/2024 8:19 AM [facility] MPV 10.5 7.5 - 12.5 fL 11/22/2024 8:19 AM [facility] Blood Blood specimen / Unknown 11/22/2024 7:31 AM EST 11/22/2024 7:54 AM EST Gianluca Calles MD LAB BLOOD ORDERABLES Performing Organization Address City/State/[facility] [place] [address], [place] [address] * (ABNORMAL) Basic Metabolic Panel (AM) (11/22/2024 7:31 AM EST) Glucose 178(H) 65 - 99 mg/dL 11/22/2024 8:17 AM [facility] Comment:Fasting: <100 mg/dL, Non-Fasting: <200 mg/dL (ADA 2005) Blood Urea Nitrogen (BUN) 36(H) 8 - 21 mg/dL 11/22/2024 8:17 AM [facility] Creatinine 1.6(H) 0.5 - 1.3 mg/dL 11/22/2024 8:17 AM [facility] eGFR 48(L) >59 11/22/2024 8:17 AM [facility] Comment:CKD-EPI (2020) in mL /min/1.73 sq meters. Sodium 137 136 - 145 mmol/L 11/22/2024 8:17 AM [facility] Potassium 4.2 3.4 - 5.3 mmol/L 11/22/2024 8:17 AM [facility] Chloride 101 98 - 107 mmol/L 11/22/2024 8:17 AM [facility] CO2 27 22 - 33 mmol/L 11/22/2024 8:17 AM [facility] Anion Gap 9 7 - 17 11/22/2024 8:17 AM [facility] Calcium 8.8 8.7 - 10.5 mg/dL 11/22/2024 8:17 AM [facility] BUN/Creatinine Ratio 23 10.0 - 25.0 Ratio 11/22/2024 8:17 AM [facility] Blood (Plasma/Serum) 11/22/2024 7:31 AM EST 11/22/2024 7:54 AM EST Gianluca Calles MD [place] [address], [place] [address] * (ABNORMAL) POCT Glucose, Fingerstick (11/21/2024 9:28 PM EST) POC Glucose 220(H) 65 - 99 mg/dL 11/21/2024 9:29 PM EST Blood specimen / Unknown 11/21/2024 9:28 PM EST 11/21/2024 9:29 PM EST Dallas Camejo MD POINT OF CARE TEST O RDERABLES HOSPITAL LAB See Below * (ABNORMAL) POCT Glucose, Fingerstick (11/21/2024 4:49 PM EST) POC Glucose 193(H) 65 - 99 mg/dL 11/21/2024 4:52 PM EST Blood specimen / Unknown 11/21/2024 4:49 PM EST 11/21/2024 4:52 PM EST Dallas Camejo MD POINT OF CARE TEST O RDERABLES HOSPITAL LAB See Below * (ABNORMAL) POCT Glucose, Fingerstick (11/21/2024 11:56 AM EST) Pathologist [facility] POC Glucose 246(H) 65 - 99 mg/dL 11/21/2024 12:03 PM EST Blood specimen / Unknown 11/21/2024 11:56 AM EST 11/21/2024 12:03 PM EST Dallas Camejo MD POINT OF CARE TEST O JOSEPH Performing Organization Address City/[facility]/ZIP Co de Phone Number [facility] See Below * (ABNORMAL) POCT Glucose, Fingerstick (11/21/2024 7:45 AM EST) Pathologist [facility] POC Glucose 175(H) 65 - 99 mg/dL 11/21/2024 7:54 AM EST Blood specimen / Unknown 11/21/2024 7:45 AM EST 11/21/2024 7:54 AM EST Dallas Camejo MD POINT OF CARE TEST O JOSEPH Performing Organization Address City/[facility] Co de Phone Number [facility] See Below * Magnesium (AM) (11/21/2024 6:58 AM EST) [facility] Magnesium 2.1 1.6 - 2.7 mg/dL 11/21/2024 8:14 AM EST [facility] Blood (Plasma/Serum) 11/21/2024 6:58 AM EST 11/21/2024 7:36 AM EST Gianluca Calles MD LAB BLOOD ORDERABLES Performing Organization Address [facility] Co de Phone Number [address] [address], [address] [address] * (ABNORMAL) Complete Blood Count WITHOUT Differential - in AM (11/21/2024 6:58 AM EST) [facility] White Blood Cell Count 14.0(H) 4.0 - 11.0 Thou/uL 11/21/2024 7:55 AM EST [facility] Platelet Count 329 150 - 450 Thou/uL 11/21/2024 7:55 AM [facility] Hemoglobin 8.2(L) 13.0 - 17.7 g/dL 11/21/2024 7:55 AM [facility] Hematocrit 26.7(L) 39.0 - 54.0 % 11/21/2024 7:55 AM [facility] Red Blood Cell Count 2.95(L) 4.50 - 6.20 Mil/uL 11/21/2024 7:55 AM [facility] MCV 91 80 - 100 fL 11/21/2024 7:55 AM [facility] MCH 27.8 27.0 - 31.0 pg 11/21/2024 7:55 AM [facility] MCHC 30.7 30.0 - 36.0 g/dL 11/21/2024 7:55 AM [facility] RDW 17.8(H) 11.5 - 14.5 % 11/21/2024 7:55 AM [facility] MPV 10.4 7.5 - 12.5 fL 11/21/2024 7:55 AM [facility] Blood Blood specimen / Unknown 11/21/2024 6:58 AM EST 11/21/2024 7:36 AM EST Gianluca Calles MD LAB BLOOD ORDERABLES Performing Organization Address City/State/[facility] [place] [address], [place] [address] * (ABNORMAL) Basic Metabolic Panel (AM) (11/21/2024 6:58 AM EST) Glucose 153(H) 65 - 99 mg/dL 11/21/2024 8:14 AM [facility] Comment:Fasting: <100 mg/dL, Non-Fasting: <200 mg/dL (ADA 2005) Blood Urea Nitrogen (BUN) 38(H) 8 - 21 mg/dL 11/21/2024 8:14 AM [facility] Creatinine 1.8(H) 0.5 - 1.3 mg/dL 11/21/2024 8:14 AM [facility] eGFR 42(L) >59 11/21/2024 8:14 AM [facility] Comment:CKD-EPI (2020) in mL /min/1.73 sq meters. Sodium 136 136 - 145 mmol/L 11/21/2024 8:14 AM [facility] Potassium 3.7 3.4 - 5.3 mmol/L 11/21/2024 8:14 AM [facility] Chloride 99 98 - 107 mmol/L 11/21/2024 8:14 AM [facility] CO2 27 22 - 33 mmol/L 11/21/2024 8:14 AM [facility] Anion Gap 10 7 - 17 11/21/2024 8:14 AM [facility] Calcium 8.8 8.7 - 10.5 mg/dL 11/21/2024 8:14 AM [facility] BUN/Creatinine Ratio 21 10.0 - 25.0 Ratio 11/21/2024 8:14 AM [facility] Blood (Plasma/Serum) 11/21/2024 6:58 AM EST 11/21/2024 7:36 AM EST Gianluca Calles MD [place] [address], [place] [address] * (ABNORMAL) POCT Glucose, Fingerstick (11/20/2024 8:16 PM EST) POC Glucose 288(H) 65 - 99 mg/dL 11/20/2024 8:17 PM EST Blood specimen / Unknown 11/20/2024 8:16 PM EST 11/20/2024 8:17 PM EST Dallas Camejo MD POINT OF CARE TEST O RDERABLES HOSPITAL LAB See Below * (ABNORMAL) POCT Glucose, Fingerstick (11/20/2024 4:32 PM EST) POC Glucose 212(H) 65 - 99 mg/dL 11/20/2024 5:09 PM EST Blood specimen / Unknown 11/20/2024 4:32 PM EST 11/20/2024 5:09 PM EST Dallas Camejo MD POINT OF CARE TEST O RDERABLES Performing Organization Address [facility] Co ks Phone Number [facility] See Below * (ABNORMAL) POCT Glucose, Fingerstick (11/20/2024 12:07 PM EST) POC Glucose 167(H) 65 - 99 mg/dL 11/20/2024 12:12 PM EST Blood specimen / Unknown 11/20/2024 12:07 PM EST 11/20/2024 12:12 PM EST Dallas Camejo MD POINT OF CARE TEST O RDERABLES Performing Organization Address [facility] Phone Number [facility] See Below * (ABNORMAL) POCT Glucose, Fingerstick (11/20/2024 7:58 AM EST) POC Glucose 166(H) 65 - 99 mg/dL 11/20/2024 8:02 AM EST Blood specimen / Unknown 11/20/2024 7:58 AM EST 11/20/2024 8:02 AM EST Dallas Camejo MD POINT OF CARE TEST O RDERABLES Performing Organization Address [facility] Phone Number [facility] See Below * Magnesium (AM) (11/20/2024 6:59 AM EST) Magnesium 2.2 1.6 - 2.7 mg/dL 11/20/2024 8:04 AM EST [facility] Blood (Plasma/Serum) 11/20/2024 6:59 AM EST 11/20/2024 7:31 AM EST Gianluca Calles MD LAB BLOOD ORDERABLES Performing Organization Address [facility] Co de Phone Number [address] [address], [address] [address] * (ABNORMAL) Complete Blood Count WITHOUT Differential - in AM (11/20/2024 6:59 AM EST) Pathologist [facility] White Blood Cell Count 11.9(H) 4.0 - 11.0 Thou/uL 11/20/2024 7:45 AM [facility] Platelet Count 339 150 - 450 Thou/uL 11/20/2024 7:45 AM [facility] Hemoglobin 8.3(L) 13.0 - 17.7 g/dL 11/20/2024 7:45 AM [facility] Hematocrit 27.2(L) 39.0 - 54.0 % 11/20/2024 7:45 AM [facility] Red Blood Cell Count 3.01(L) 4.50 - 6.20 Mil/uL 11/20/2024 7:45 AM [facility] MCV 90 80 - 100 fL 11/20/2024 7:45 AM [facility] MCH 27.6 27.0 - 31.0 pg 11/20/2024 7:45 AM [facility] MCHC 30.5 30.0 - 36.0 g/dL 11/20/2024 7:45 AM [facility] RDW 17.5(H) 11.5 - 14.5 % 11/20/2024 7:45 AM [facility] MPV 10.7 7.5 - 12.5 fL 11/20/2024 7:45 AM [facility] Blood Blood specimen / Unknown 11/20/2024 6:59 AM EST 11/20/2024 7:31 AM EST Gianluca Calles MD LAB BLOOD ORDERABLES [address] [address], [address] [address] * (ABNORMAL) Basic Metabolic Panel (AM) (11/20/2024 6:59 AM EST) [facility] Glucose 155(H) 65 - 99 mg/dL 11/20/2024 8:04 AM [facility] Comment:Fasting: <100 mg/dL, Non-Fasting: <200 mg/dL (ADA 2005) Blood Urea Nitrogen (BUN) 47(H) 8 - 21 mg/dL 11/20/2024 8:04 AM [facility] Creatinine 1.9(H) 0.5 - 1.3 mg/dL 11/20/2024 8:04 AM [facility] eGFR 39(L) >59 11/20/2024 8:04 AM [facility] Comment:CKD-EPI (2020) in mL /min/1.73 sq meters. Sodium 137 136 - 145 mmol/L 11/20/2024 8:04 AM [facility] Potassium 3.8 3.4 - 5.3 mmol/L 11/20/2024 8:04 AM [facility] Chloride 98 98 - 107 mmol/L 11/20/2024 8:04 AM [facility] CO2 30 22 - 33 mmol/L 11/20/2024 8:04 AM [facility] Anion Gap 9 7 - 17 11/20/2024 8:04 AM [facility] Calcium 9.0 8.7 - 10.5 mg/dL 11/20/2024 8:04 AM [facility] BUN/Creatinine Ratio 25 10.0 - 25.0 Ratio 11/20/2024 8:04 AM [facility] Blood (Plasma/Serum) 11/20/2024 6:59 AM EST 11/20/2024 7:31 AM EST Gianluca Calles MD LAB BLOOD ORDERABLES Performing Organization Address [facility] [place] [address], [place] [address] * (ABNORMAL) POCT Glucose, Fingerstick (11/19/2024 4:13 PM EST) POC Glucose 274(H) 65 - 99 mg/dL 11/19/2024 4:14 PM EST Blood specimen / Unknown 11/19/2024 4:13 PM EST 11/19/2024 4:14 PM EST Dallas Camejo MD [facility] C[facility] See Below * (ABNORMAL) Urinalysis with Reflex to Microscopic (11/19/2024 4:00 PM EST) Color Yellow 11/19/2024 4:30 PM [facility] Clarity Clear 11/19/2024 4:30 PM [facility] Specific [place] 1.008 1.003 - 1.030 11/19/2024 4:30 PM [facility] pH 6.0 5.0 - 8.0 11/19/2024 4:30 PM [facility] Leukocyte Esterase Large(A) Negative 11/19/2024 4:30 PM [facility] Nitrite Negative Negative 11/19/2024 4:30 PM [facility] Protein Negative Negative 11/19/2024 4:30 PM [facility] Glucose 0 0 - 99 mg/dL 11/19/2024 4:30 PM [facility] Ketones Negative Negative 11/19/2024 4:30 PM [facility] Blood Negative Negative 11/19/2024 4:30 PM [facility] Bilirubin Negative Negative 11/19/2024 4:30 PM [facility] WBC >25(H) 0 - 4 per hpf 11/19/2024 4:30 PM [facility] RBC 2 0 - 4 per hpf 11/19/2024 4:30 PM [facility] X-Specimen 16 Voided urine specimen / Unknown 11/19/2024 4:00 PM EST 11/19/2024 4:18 PM EST Anmol Reynoso MD URINE ORDERABLES [address] [address], [address] [address] * OSMOLALITY, URINE (11/19/2024 4:00 PM EST) Osmolality, Urine 201 50 - 1,200 mOsm/Kg 11/19/2024 6:20 PM [facility] Urine Urine specimen / Unknown 11/19/2024 4:00 PM EST 11/19/2024 4:19 PM EST Anmol Reynoso MD URINE ORDERABLES Performing Organization Address [facility] Co de Phone Number [address] [address], [address] [address] * Urea Nitrogen, Urine, Random (11/19/2024 4:00 PM EST) Urea Nitrogen, Random Urine 273 mg/dL 11/19/2024 5:43 PM [facility] Comment:Reference range not established for random specimen. Urine Urine specimen / Unknown 11/19/2024 4:00 PM EST 11/19/2024 4:19 PM EST Anmol Reynoso MD URINE ORDERABLES Performing Organization Address [facility] Co de Phone Number [address] [address], [address] [address] * SODIUM, URINE, RANDOM (11/19/2024 4:00 PM EST) Sodium, Urine Random 21 mmol/L 11/19/2024 5:43 PM [facility] Comment:Reference range not established for random specimen. Urine Urine specimen / Unknown 11/19/2024 4:00 PM EST 11/19/2024 4:19 PM EST Anmol Reynoso MD URINE ORDERABLES Performing Organization Address City/[facility] Co de Phone Number [address] [address], [address] [address] * CREATININE, URINE, RANDOM (11/19/2024 4:00 PM EST) Creatinine, Urine, Random 31 mg/dL 11/19/2024 5:43 PM [facility] Comment:Reference range not established for random specimen. Urine Urine specimen / Unknown 11/19/2024 4:00 PM EST 11/19/2024 4:19 PM EST Anmol Reynoso MD URINE ORDERABLES Performing Organization Address [facility] [place] [address], [place] [address] * Chloride, Urine, Random (11/19/2024 4:00 PM EST) Chloride, Urine, Random 23 mmol/L 11/19/2024 5:43 PM EST [facility] Comment:Reference range not established for random specimen. Urine Urine specimen / Unknown 11/19/2024 4:00 PM EST 11/19/2024 4:19 PM EST Anmol Reynoso MD URINE ORDERABLES Performing Organization Address [facility] [place] [address], [place] [address] * CVC INSERT (TUNNEL) W/O PORT GREATER THAN 5 YRS W/ FLUORO GUIDANCE (11/19/2024 2:22 PM EST) Anatomical Region Laterality Modality X-Ray Angiograph y 11/19/2024 1:57 PM EST Impressions 11/19/2024 4:31 PM EST Successful tunneled 6F catheter (Proline) placement via right internal jugular vein, as described above. PLAN: Catheter ready for use immediately. Narrative 11/19/2024 4:31 PM EST PROCEDURE: IR PROLINE INSERTION CLINICAL INFORMATION: Endocarditis; long-term IV access COMPARISON: None OPERATORS: RESIDENT: None ATTENDING: Dr. Devon Vogt, attending interventional radiologist performed the procedure. TECHNIQUE: ANESTHESIA: . 1% lidocaine was injected in the skin and subcutaneous tissues overlying the access site. MEDICATIONS: 0.5 mg Versed CONTRAST: None FLUOROSCOPY TIME: 0.2 min DAP: 57 uGy-m2 PROCEDURE: 1. Tunneled 6F catheter (Proline) via right internal jugular vein. PROCEDURE DETAILS: Following the discussion of the risks, benefits and alternatives to the procedure, written informed consent was obtained from the patient. The patient was then brought to the angiography suite and placed supine on the exam table. A preprocedure time-out was performed per [facility] protocol. The right neck and chest was prepped and draped using all elements of maximal sterile barrier technique including sterile gloves, sterile gown, cap, mask, large sterile sheet, sterile ultrasound probe cover, hand hygiene and cutaneous antisepsis with 2% chlorhexidine. Using real-time ultrasound guidance, the right internal jugular vein was punctured. A subcutaneous tunnel was created requiring a second incision. Using this access, a 26 cm long dual lumen 5-Micronesian cuffed tunneled catheter was placed under fluoroscopic guidance with its tip at the superior vena caval-right atrial junction. The catheter was sutured securely to the skin. Sterile bandage was applied. The patient tolerated the procedure well and left the interventional radiology suite in stable condition. No immediate postprocedural complications. FINDINGS: Ultrasound shows an anechoic and compressible right jugular vein. A permanent ultrasound image was saved to the patient's chart. Procedure Note Devon Vogt, DO - 11/19/2024 PROCEDURE: IR PROLINE INSERTION CLINICAL INFORMATION: Endocarditis; long-term IV access COMPARISON: None OPERATORS: RESIDENT: None ATTENDING: Dr. Devon Vogt, attending interventional radiologist performed the procedure. TECHNIQUE: ANESTHESIA: . 1% lidocaine was injected in the skin and subcutaneous tissues overlying the access site. MEDICATIONS: 0.5 mg Versed CONTRAST: None FLUOROSCOPY TIME: 0.2 min DAP: 57 uGy-m2 PROCEDURE: 1. Tunneled 6F catheter (Proline) via right internal jugular vein. PROCEDURE DETAILS: Following the discussion of the risks, benefits and alternatives to the procedure, written informed consent was obtained from the patient. The patient was then brought to the angiography suite and placed supine on the exam table. A preprocedure time-out was performed per [facility] protocol. The right neck and chest was prepped and draped using all elements of maximal sterile barrier technique including sterile gloves, sterile gown, cap, mask, large sterile sheet, sterile ultrasound probe cover, hand hygiene and cutaneous antisepsis with 2% chlorhexidine. Using real-time ultrasound guidance, the right internal jugular vein was punctured. A subcutaneous tunnel was created requiring a second incision. Using this access, a 26 cm long dual lumen 5-Micronesian cuffed tunneled catheter was placed under fluoroscopic guidance with its tip at the superior vena caval-right atrial junction. The catheter was sutured securely to the skin. Sterile bandage was applied. The patient tolerated the procedure well and left the interventional radiology suite in stable condition. No immediate postprocedural complications. FINDINGS: Ultrasound shows an anechoic and compressible right jugular vein. A permanent ultrasound image was saved to the patient's chart. IMPRESSION: Successful tunneled 6F catheter (Proline) placement via right internal jugular vein, as described above. PLAN: Catheter ready for use immediately. Alyssia PATTON CV ENDOVASCULAR PAMELA BUCK * (ABNORMAL) POCT Glucose, Fingerstick (11/19/2024 11:39 AM EST) Pathologist [facility] POC Glucose 205(H) 65 - 99 mg/dL 11/19/2024 11:40 AM EST Blood specimen / Unknown 11/19/2024 11:39 AM EST 11/19/2024 11:40 AM EST Dallas Camejo MD POINT OF CARE TEST O RDERABLES Performing Organization Address City/[facility] Co de Phone Number HOSPITAL LAB See Below * (ABNORMAL) POCT Glucose, Fingerstick (11/19/2024 8:06 AM EST) Pathologist [facility] POC Glucose 190(H) 65 - 99 mg/dL 11/19/2024 8:08 AM EST Blood specimen / Unknown 11/19/2024 8:06 AM EST 11/19/2024 8:08 AM EST Dallas Camejo MD POINT OF CARE TEST O RDERABLES Performing Organization Address [facility]/State/ZIP Co de Phone Number HOSPITAL LAB See Below * (ABNORMAL) Complete Blood Count WITHOUT Differential - Daily x2 (11/19/2024 7:54 AM EST) Pathologist [facility] White Blood Cell Count 10.1 4.0 - 11.0 Thou/uL 11/19/2024 8:48 AM EST [facility] Platelet Count 354 150 - 450 Thou/uL 11/19/2024 8:48 AM [facility] Hemoglobin 8.2(L) 13.0 - 17.7 g/dL 11/19/2024 8:48 AM [facility] Hematocrit 26.6(L) 39.0 - 54.0 % 11/19/2024 8:48 AM [facility] Red Blood Cell Count 2.99(L) 4.50 - 6.20 Mil/uL 11/19/2024 8:48 AM [facility] MCV 89 80 - 100 fL 11/19/2024 8:48 AM [facility] MCH 27.4 27.0 - 31.0 pg 11/19/2024 8:48 AM [facility] MCHC 30.8 30.0 - 36.0 g/dL 11/19/2024 8:48 AM [facility] RDW 17.2(H) 11.5 - 14.5 % 11/19/2024 8:48 AM [facility] MPV 10.8 7.5 - 12.5 fL 11/19/2024 8:48 AM [facility] Blood Blood specimen / Unknown 11/19/2024 7:54 AM EST 11/19/2024 8:33 AM EST Corbin Lamb APRN LAB BLOOD ORDERABL ES Performing Organization Address City/[facility]/[place] [address], [place] [address] * Magnesium (Daily x 2 days) (11/19/2024 7:54 AM EST) Magnesium 2.1 1.6 - 2.7 mg/dL 11/19/2024 9:00 AM [facility] Blood (Plasma/Serum) 11/19/2024 7:54 AM EST 11/19/2024 8:33 AM EST Corbin Lamb APRN LAB BLOOD ORDERABL ES Performing Organization Address City/[facility]/[place] [address], [address] [address] * (ABNORMAL) Basic Metabolic Panel (Daily x 2 days) (11/19/2024 7:54 AM EST) Glucose 169(H) 65 - 99 mg/dL 11/19/2024 9:00 AM [facility] Comment:Fasting: <100 mg/dL, Non-Fasting: <200 mg/dL (ADA 2004) Blood Urea Nitrogen (BUN) 43(H) 8 - 21 mg/dL 11/19/2024 9:00 AM [facility] Creatinine 1.8(H) 0.5 - 1.3 mg/dL 11/19/2024 9:00 AM [facility] eGFR 42(L) >59 11/19/2024 9:00 AM [facility] Comment:CKD-EPI (2020) in mL /min/1.73 sq meters. Sodium 132(L) 136 - 145 mmol/L 11/19/2024 9:00 AM [facility] Potassium 3.7 3.4 - 5.3 mmol/L 11/19/2024 9:00 AM [facility] Chloride 92(L) 98 - 107 mmol/L 11/19/2024 9:00 AM [facility] CO2 30 22 - 33 mmol/L 11/19/2024 9:00 AM [facility] Anion Gap 10 7 - 17 11/19/2024 9:00 AM [facility] Calcium 9.1 8.7 - 10.5 mg/dL 11/19/2024 9:00 AM [facility] BUN/Creatinine Ratio 24 10.0 - 25.0 Ratio 11/19/2024 9:00 AM [facility] Blood (Plasma/Serum) 11/19/2024 7:54 AM EST 11/19/2024 8:33 AM EST Corbin Lamb APRN LAB BLOOD ORDERABL ES [address] [address], [address] [address] * (ABNORMAL) POCT Glucose, Fingerstick (11/18/2024 9:04 PM EST) POC Glucose 253(H) 65 - 99 mg/dL 11/18/2024 9:11 PM EST Blood specimen / Unknown 11/18/2024 9:04 PM EST 11/18/2024 9:11 PM EST Dallas Camejo MD POINT OF CARE TEST O RDGHANSHYAM Performing Organization Address [facility] LAB See Below * (ABNORMAL) POCT Glucose, Fingerstick (11/18/2024 4:56 PM EST) POC Glucose 305(H) 65 - 99 mg/dL 11/18/2024 4:58 PM EST Blood specimen / Unknown 11/18/2024 4:56 PM EST 11/18/2024 4:57 PM EST Dallas Camejo MD POINT OF CARE TEST O JOSEPH Performing Organization Address [facility] LAB See Below * (ABNORMAL) POCT Glucose, Fingerstick (11/18/2024 12:00 PM EST) POC Glucose 253(H) 65 - 99 mg/dL 11/18/2024 12:01 PM EST Blood specimen / Unknown 11/18/2024 12:00 PM EST 11/18/2024 12:01 PM EST Dallas Camejo MD POINT OF CARE TEST O CRISTINAERALUCILLE Performing Organization Address [facility] LAB See Below * (ABNORMAL) POCT Glucose, Fingerstick (11/18/2024 7:53 AM EST) POC Glucose 129(H) 65 - 99 mg/dL 11/18/2024 7:58 AM EST Blood specimen / Unknown 11/18/2024 7:53 AM EST 11/18/2024 7:58 AM EST Dallas Camejo MD POINT OF CARE TEST O RDERABLES HOSPITAL LAB See Below * PM SINGLE LEAD EVAL WITH PROGRAM,[id number] (11/18/2024 7:45 AM EST) Date Time Interrogation Session ,220,07 3,509 PACEART Implantable Pulse Generator Calender Operator Helper [employer]onic PACEART Implantable Pulse Generator Model [id number] Micra AV2 PACEART Implantable Pulse Generator Serial Number [id number] PACEART Implantable Pulse Generator Type Pacemaker PACEART Implantable Pulse Generator Implant Date ,218,19 0,000 PACEART Otf Setting Mode (NBG Code) VDD PACEART Otf Setting Lower Rate Limit 50 {beats}/m in PACEART Otf Setting Maximum Tracking Rate 120 {beats}/m in PACEART Otf Setting Maximum Sensor Rate 120 {beats}/m in PACEART Otf Setting JUSTIN Delay Low 20 ms PACEART RV Sensitivity 2.0 mV PACEART RV Pacing Pulse Width 0.24 ms PACEART RV Pacing Amplitude 2.25 V PACEART RA Lead Sensing Intrinsic Amplitude 1.5 m/s? ? ? PACEART RV Lead Pacing Threshold Amplitude 0.38 V PACEART RV Lead Pacing Threshold Pulse Width 0.24 ms PACEART Battery Remaining Longevity >120 mo PACEART Battery Voltage 3.13 V PACEART RV Percent Paced-since last reset 92.76 % PACEART Otf Statistic STOKER INSTALLATION MECHANIC Percent 99.88 % PACEART Otf Statistic VS Percent 0.12 % PACEART Anatomical Region Laterality Modality Other 11/18/2024 7:35 AM EST Narrative 11/19/2024 12:19 PM EST Pacemaker evaluation completed on B10E, device interrogation ordered for post-OP. Presenting rhythm: AM-STOKER INSTALLATION MECHANIC @ 69 bpm. Underlying rhythm: No ventricular response greater than 40 bpm. AM-STOKER INSTALLATION MECHANIC @ 84.8%. Battery and device parameters evaluated and within normal limits. Normal pacemaker function. Micra pacemakers do not record events. Sri Pena RN Corbin Lamb APRN CV CARDIAC SERVICE S ORDERABLES * Creatine Kinase (CK) (11/18/2024 7:15 AM EST) Creatine Kinase (CK) 49 24 - 204 U/L 11/18/2024 8:22 AM [facility] Blood (Plasma/Serum) 11/18/2024 7:15 AM EST 11/18/2024 7:47 AM EST Corbin Lamb APRN LAB BLOOD ORDERABL ES Performing Organization Address City/[facility]/ZIP Co de Phone Number [address] [address], [address] [address] * (ABNORMAL) Complete Blood Count WITHOUT Differential - Daily x2 (11/18/2024 7:15 AM EST) White Blood Cell Count 12.3(H) 4.0 - 11.0 Thou/uL 11/18/2024 8:00 AM [facility] Platelet Count 349 150 - 450 Thou/uL 11/18/2024 8:00 AM [facility] Hemoglobin 8.1(L) 13.0 - 17.7 g/dL 11/18/2024 8:00 AM [facility] Hematocrit 25.5(L) 39.0 - 54.0 % 11/18/2024 8:00 AM [facility] Red Blood Cell Count 2.90(L) 4.50 - 6.20 Mil/uL 11/18/2024 8:00 AM [facility] MCV 88 80 - 100 fL 11/18/2024 8:00 AM [facility] MCH 27.9 27.0 - 31.0 pg 11/18/2024 8:00 AM [facility] MCHC 31.8 30.0 - 36.0 g/dL 11/18/2024 8:00 AM [facility] RDW 17.1(H) 11.5 - 14.5 % 11/18/2024 8:00 AM [facility] MPV 10.6 7.5 - 12.5 fL 11/18/2024 8:00 AM [facility] Blood Blood specimen / Unknown 11/18/2024 7:15 AM EST 11/18/2024 7:47 AM EST Corbin Adonis ASSOCIATE THEATRE PROFESSOR [place] [address], [place] [address] * Magnesium (Daily x 2 days) (11/18/2024 7:15 AM EST) Magnesium 2.0 1.6 - 2.7 mg/dL 11/18/2024 8:22 AM [facility] Blood (Plasma/Serum) 11/18/2024 7:15 AM EST 11/18/2024 7:47 AM EST Corbin Lamb ASSOCIATE THEATRE PROFESSOR LAB BLOOD ORDERABL ES Performing Organization Address City/[facility]/[place] [address], [place] [address] * (ABNORMAL) Basic Metabolic Panel (Daily x 2 days) (11/18/2024 7:15 AM EST) Glucose 114(H) 65 - 99 mg/dL 11/18/2024 8:22 AM [facility] Comment:Fasting: <100 mg/dL, Non-Fasting: <200 mg/dL (ADA 2005) Blood Urea Nitrogen (BUN) 45(H) 8 - 21 mg/dL 11/18/2024 8:22 AM [facility] Creatinine 1.8(H) 0.5 - 1.3 mg/dL 11/18/2024 8:22 AM [facility] eGFR 42(L) >59 11/18/2024 8:22 AM [facility] Comment:CKD-EPI (2020) in mL /min/1.73 sq meters. Sodium 129(L) 136 - 145 mmol/L 11/18/2024 8:22 AM [facility] Potassium 3.6 3.4 - 5.3 mmol/L 11/18/2024 8:22 AM [facility] Chloride 89(L) 98 - 107 mmol/L 11/18/2024 8:22 AM [facility] CO2 29 22 - 33 mmol/L 11/18/2024 8:22 AM [facility] Anion Gap 11 7 - 17 11/18/2024 8:22 AM EST [facility] Calcium 8.9 8.7 - 10.5 mg/dL 11/18/2024 8:22 AM EST [facility] BUN/Creatinine Ratio 25 10.0 - 25.0 Ratio 11/18/2024 8:22 AM EST [facility] Blood (Plasma/Serum) 11/18/2024 7:15 AM EST 11/18/2024 7:47 AM EST Corbin Lamb APRN LAB BLOOD ORDERABL ES [address] [address], [address] [address] * XR Chest 1 view (11/17/2024 5:48 PM EST) Anatomical Region Laterality Modality Chest Computed Radiogr aphy 11/17/2024 4:42 PM EST Impressions 11/18/2024 11:50 AM EST Mildly improving bilateral upper lobe airspace disease Narrative 11/18/2024 11:50 AM EST EXAMINATION: XR CHEST CLINICAL INFORMATION: Post op Micra AV implant. COMPARISON: XR Chest 11/10/2024 TECHNIQUE: Frontal view of the chest was obtained. FINDINGS: Status post AVM planned. Stable cardiac size. The airspace disease in the bilateral upper lobes is mildly improved. No pneumothorax or pleural effusion. Procedure Note Suleman Vogt MD - 11/18/2024 EXAMINATION: XR CHEST CLINICAL INFORMATION: Post op Micra AV implant. COMPARISON: XR Chest 11/10/2024 TECHNIQUE: Frontal view of the chest was obtained. FINDINGS: Status post AVM planned. Stable cardiac size. The airspace disease in the bilateral upper lobes is mildly improved. No pneumothorax or pleural effusion. IMPRESSION: Mildly improving bilateral upper lobe airspace disease Corbin Lamb APRN IMG DIAGNOSTIC [place] GING ORDERABLES * (ABNORMAL) POCT Glucose, Fingerstick (11/17/2024 5:00 PM EST) POC Glucose 177(H) 65 - 99 mg/dL 11/17/2024 5:05 PM EST Blood specimen / Unknown 11/17/2024 5:00 PM EST 11/17/2024 5:05 PM EST Dallas Camejo MD POINT OF CARE TEST O RDERABLES Performing Organization Address [facility] Phone Number [facility] LAB See Below * (ABNORMAL) POCT Glucose, Fingerstick (11/17/2024 1:26 PM EST) POC Glucose 140(H) 65 - 99 mg/dL 11/17/2024 1:30 PM EST Blood specimen / Unknown 11/17/2024 1:26 PM EST 11/17/2024 1:30 PM EST Dallas Camejo MD POINT OF CARE TEST O RDERABLES Performing Organization Address [facility] Phone Number [facility] LAB See Below * (ABNORMAL) POCT Glucose, Fingerstick (11/17/2024 11:18 AM EST) POC Glucose 153(H) 65 - 99 mg/dL 11/17/2024 11:22 AM EST Blood specimen / Unknown 11/17/2024 11:18 AM EST 11/17/2024 11:22 AM EST Dallas Camejo MD POINT OF CARE TEST O RDERABLES Performing Organization Address [facility] Phone Number [facility] LAB See Below * Phosphorus (AM) (11/17/2024 8:16 AM EST) Phosphorus 3.5 2.7 - 4.5 mg/dL 11/17/2024 9:01 AM EST [facility] Blood (Plasma/Serum) 11/17/2024 8:16 AM EST 11/17/2024 8:30 AM EST Maddison Villalpando MD LAB BLOOD ORDERABLES Performing Organization Address [facility]/[place] [address], [address] [address] * Magnesium (AM) (11/17/2024 8:16 AM EST) [facility] Magnesium 2.0 1.6 - 2.7 mg/dL 11/17/2024 9:01 AM EST [facility] Blood (Plasma/Serum) 11/17/2024 8:16 AM EST 11/17/2024 8:30 AM EST Maddison Villalpando MD LAB BLOOD ORDERABLES Performing Organization Address City/[facility]/[place] [address], [place] [address] * (ABNORMAL) POCT Glucose, Fingerstick (11/17/2024 7:20 AM EST) [facility] POC Glucose 206(H) 65 - 99 mg/dL 11/17/2024 7:31 AM EST Blood specimen / Unknown 11/17/2024 7:20 AM EST 11/17/2024 7:30 AM EST Dallas Camejo MD POINT OF CARE TEST O RDERABLES HOSPITAL LAB See Below * (ABNORMAL) Complete Blood Count WITHOUT Differential - STAT (11/17/2024 5:00 AM EST) [facility] White Blood Cell Count 11.2(H) 4.0 - 11.0 Thou/uL 11/17/2024 5:26 AM [facility] Platelet Count 373 150 - 450 Thou/uL 11/17/2024 5:26 AM [facility] Hemoglobin 8.2(L) 13.0 - 17.7 g/dL 11/17/2024 5:26 AM [facility] Hematocrit 25.0(L) 39.0 - 54.0 % 11/17/2024 5:26 AM [facility] Red Blood Cell Count 2.94(L) 4.50 - 6.20 Mil/uL 11/17/2024 5:26 AM [facility] MCV 85 80 - 100 fL 11/17/2024 5:26 AM [facility] MCH 27.9 27.0 - 31.0 pg 11/17/2024 5:26 AM [facility] MCHC 32.8 30.0 - 36.0 g/dL 11/17/2024 5:26 AM [facility] RDW 16.5(H) 11.5 - 14.5 % 11/17/2024 5:26 AM [facility] MPV 10.4 7.5 - 12.5 fL 11/17/2024 5:26 AM [facility] Blood Blood specimen / Unknown 11/17/2024 5:00 AM EST 11/17/2024 5:09 AM EST Adithya Sheriff PA-C LAB BLOOD ORDERAB LES Performing Organization Address City/State/[facility] [place] [address], [address] [address] * (ABNORMAL) Comprehensive Metabolic Panel (AM) (11/17/2024 5:00 AM EST) Glucose 171(H) 65 - 99 mg/dL 11/17/2024 6:55 AM [facility] Comment:Fasting: <100 mg/dL, Non-Fasting: <200 mg/dL (ADA 2005) Blood Urea Nitrogen (BUN) 54(H) 8 - 21 mg/dL 11/17/2024 6:55 AM [facility] Creatinine 1.8(H) 0.5 - 1.3 mg/dL 11/17/2024 6:55 AM [facility] eGFR 42(L) >59 11/17/2024 6:55 AM [facility] Comment:CKD-EPI (2020) in mL /min/1.73 sq meters. Sodium 128(L) 136 - 145 mmol/L 11/17/2024 6:55 AM [facility] Potassium 3.7 3.4 - 5.3 mmol/L 11/17/2024 6:55 AM [facility] Chloride 87(L) 98 - 107 mmol/L 11/17/2024 6:55 AM [facility] CO2 30 22 - 33 mmol/L 11/17/2024 6:55 AM [facility] Calcium 9.4 8.7 - 10.5 mg/dL 11/17/2024 6:55 AM [facility] Alkaline Phosphatase 117 45 - 128 U/L 11/17/2024 6:55 AM [facility] Aspartate Aminotrans (AST) 24 10 - 55 U/L 11/17/2024 6:55 AM [facility] Alanine Aminotrans (ALT) 19 10 - 55 U/L 11/17/2024 6:55 AM [facility] Bilirubin, Total 0.2 0.2 - 1.0 mg/dL 11/17/2024 6:55 AM [facility] Protein, Total 6.6 6.3 - 8.3 g/dL 11/17/2024 6:55 AM [facility] Albumin 2.9(L) 3.4 - 4.8 g/dL 11/17/2024 6:55 AM [facility] BUN/Creatinine Ratio 30(H) 10.0 - 25.0 Ratio 11/17/2024 6:55 AM [facility] Globulin 3.7 1.5 - 3.9 g/dL 11/17/2024 6:55 AM [facility] Albumin/Globulin Ratio 0.8(L) 1.0 - 3.0 Ratio 11/17/2024 6:55 AM [facility] Anion Gap 11 7 - 17 11/17/2024 6:55 AM [facility] Blood (Plasma/Serum) 11/17/2024 5:00 AM EST 11/17/2024 5:09 AM EST Adithya Sheriff PA-C LAB BLOOD ORDERAB LES [address] [address], [address] [address] * (ABNORMAL) POCT Glucose, Fingerstick (11/16/2024 8:09 PM EST) POC Glucose 296(H) 65 - 99 mg/dL 11/16/2024 8:12 PM EST Blood specimen / Unknown 11/16/2024 8:09 PM EST 11/16/2024 8:11 PM EST Dallas Camejo MD POINT OF CARE TEST O RDERABLES Performing Organization Address [facility] LAB See Below * (ABNORMAL) POCT Glucose, Fingerstick (11/16/2024 4:19 PM EST) POC Glucose 236(H) 65 - 99 mg/dL 11/16/2024 4:24 PM EST Blood specimen / Unknown 11/16/2024 4:19 PM EST 11/16/2024 4:24 PM EST Dallas Camejo MD POINT OF CARE TEST O RDERALUCILLE Performing Organization Address [facility] LAB See Below * (ABNORMAL) POCT Glucose, Fingerstick (11/16/2024 12:04 PM EST) POC Glucose 246(H) 65 - 99 mg/dL 11/16/2024 12:16 PM EST Blood specimen / Unknown 11/16/2024 12:04 PM EST 11/16/2024 12:16 PM EST Dallas Camejo MD POINT OF CARE TEST O RDERABLES Performing Organization Address [facility] LAB See Below * (ABNORMAL) POCT Glucose, Fingerstick (11/16/2024 7:37 AM EST) POC Glucose 211(H) 65 - 99 mg/dL 11/16/2024 7:52 AM EST Blood specimen / Unknown 11/16/2024 7:37 AM EST 11/16/2024 7:52 AM EST Dallas Camejo MD POINT OF CARE TEST O RDERALUCILLE Performing Organization Address [facility] Number [facility] HOSPITAL LAB See Below * Phosphorus (AM) (11/16/2024 7:23 AM EST) Phosphorus 3.8 2.7 - 4.5 mg/dL 11/16/2024 8:34 AM [facility] Blood (Plasma/Serum) 11/16/2024 7:23 AM EST 11/16/2024 7:51 AM EST Maddison Villalpando MD LAB BLOOD ORDERABLES Performing Organization Address City/[facility]/[place] [address], [place] [address] * Magnesium (AM) (11/16/2024 7:23 AM EST) Magnesium 2.1 1.6 - 2.7 mg/dL 11/16/2024 8:34 AM [facility] Blood (Plasma/Serum) 11/16/2024 7:23 AM EST 11/16/2024 7:51 AM EST Maddison Villalpando MD LAB BLOOD ORDERABLES Performing Organization Address [facility] [place] [address], [place] [address] * (ABNORMAL) Basic Metabolic Panel (AM) (11/16/2024 7:23 AM EST) Glucose 190(H) 65 - 99 mg/dL 11/16/2024 8:34 AM [facility] Comment:Fasting: <100 mg/dL, Non-Fasting: <200 mg/dL (ADA 2005) Blood Urea Nitrogen (BUN) 55(H) 8 - 21 mg/dL 11/16/2024 8:34 AM [facility] Creatinine 1.9(H) 0.5 - 1.3 mg/dL 11/16/2024 8:34 AM [facility] eGFR 39(L) >59 11/16/2024 8:34 AM [facility] Comment:CKD-EPI (2020) in mL /min/1.73 sq meters. Sodium 130(L) 136 - 145 mmol/L 11/16/2024 8:34 AM [facility] Potassium 3.6 3.4 - 5.3 mmol/L 11/16/2024 8:34 AM [facility] Chloride 87(L) 98 - 107 mmol/L 11/16/2024 8:34 AM [facility] CO2 32 22 - 33 mmol/L 11/16/2024 8:34 AM [facility] Anion Gap 11 7 - 17 11/16/2024 8:34 AM [facility] Calcium 9.1 8.7 - 10.5 mg/dL 11/16/2024 8:34 AM [facility] BUN/Creatinine Ratio 29(H) 10.0 - 25.0 Ratio 11/16/2024 8:34 AM [facility] Blood (Plasma/Serum) 11/16/2024 7:23 AM EST 11/16/2024 7:51 AM EST Maddison Villalpando MD LAB BLOOD ORDERABLES Performing Organization Address City/State/[facility] Co de Phone Number [address] [address], [address] [address] * (ABNORMAL) Complete Blood Count WITHOUT Differential - in AM (11/16/2024 7:23 AM EST) White Blood Cell Count 10.7 4.0 - 11.0 Thou/uL 11/16/2024 8:10 AM [facility] Platelet Count 408 150 - 450 Thou/uL 11/16/2024 8:10 AM [facility] Hemoglobin 8.1(L) 13.0 - 17.7 g/dL 11/16/2024 8:10 AM [facility] Hematocrit 25.6(L) 39.0 - 54.0 % 11/16/2024 8:10 AM [facility] Red Blood Cell Count 2.97(L) 4.50 - 6.20 Mil/uL 11/16/2024 8:10 AM [facility] MCV 86 80 - 100 fL 11/16/2024 8:10 AM [facility] MCH 27.3 27.0 - 31.0 pg 11/16/2024 8:10 AM [facility] MCHC 31.6 30.0 - 36.0 g/dL 11/16/2024 8:10 AM [facility] RDW 16.8(H) 11.5 - 14.5 % 11/16/2024 8:10 AM [facility] MPV 10.4 7.5 - 12.5 fL 11/16/2024 8:10 AM [facility] Blood Blood specimen / Unknown 11/16/2024 7:23 AM EST 11/16/2024 7:51 AM EST Maddison Villalpando MD LAB BLOOD ORDERABLES [address] [address], [address] [address] * Type and Screen (11/16/2024 7:23 AM EST) ABO/Rh A POSITIVE 11/16/2024 8:39 AM [facility] Antibody Screen NEGATIVE 11/16/2024 8:53 AM [facility] Specimen Expiration 11/19/2024 11/16/2024 8:39 AM [facility] Unit Number [id number] 11/16/2024 9:12 AM [facility] Blood Component Type LEUKOREDUCED RED CELLS 11/16/2024 9:12 AM [facility] Unit Division 00 11/16/2024 9:12 AM [facility] Unit Status REL FROM ALLOC 2:05 AM [facility] Transfusion Status OK TO TRANSFUSE 11/16/2024 9:12 AM [facility] Crossmatch Result Electronically Compatible 11/16/2024 9:12 AM [facility] Unit Number [id number] 11/16/2024 9:12 AM [facility] Blood Component Type LEUKOREDUCED RED CELLS 11/16/2024 9:12 AM [facility] Unit Division 00 11/16/2024 9:12 AM [facility] Unit Status REL FROM ALLOC 2:05 AM [facility] Transfusion Status OK TO TRANSFUSE 11/16/2024 9:12 AM [facility] Crossmatch Result Electronically Compatible 11/16/2024 9:12 AM [facility] Unit Number [id number] 11/16/2024 9:12 AM [facility] Blood Component Type LEUKOREDUCED RED CELLS 11/16/2024 9:12 AM [facility] Unit Division 00 11/16/2024 9:12 AM [facility] Unit Status REL FROM ALLOC 2:05 AM [facility] Transfusion Status OK TO TRANSFUSE 11/16/2024 9:12 AM [facility] Crossmatch Result Electronically Compatible 11/16/2024 9:12 AM [facility] Unit Number [id number] 11/16/2024 9:12 AM [facility] Blood Component Type LEUKOREDUCED RED CELLS 11/16/2024 9:12 AM [facility] Unit Division 00 11/16/2024 9:12 AM [facility] Unit Status REL FROM ALLOC 2:05 AM [facility] Transfusion Status OK TO TRANSFUSE 11/16/2024 9:12 AM [facility] Crossmatch Result Electronically Compatible 11/16/2024 9:12 AM [facility] Blood Blood specimen / Unknown 11/16/2024 7:23 AM EST 11/16/2024 7:57 AM EST Comment:Blood Cristina Rodriguez APRN BLOOD BANK TEST OR DERABLES HOSPITAL LAB See Below [address] [address] * (ABNORMAL) POCT Glucose, Fingerstick (11/15/2024 8:14 PM EST) POC Glucose 330(H) 65 - 99 mg/dL 11/15/2024 8:15 PM EST Blood specimen / Unknown 11/15/2024 8:14 PM EST 11/15/2024 8:15 PM EST Dallas Camejo MD POINT OF CARE TEST O RDERABLES HOSPITAL LAB See Below * (ABNORMAL) POCT Glucose, Fingerstick (11/15/2024 4:10 PM EST) POC Glucose 308(H) 65 - 99 mg/dL 11/15/2024 4:11 PM EST Blood specimen / Unknown 11/15/2024 4:10 PM EST 11/15/2024 4:11 PM EST Dallas Camejo MD POINT OF CARE TEST O RDERALUCILLE Performing Organization Address [facility] LAB See Below * (ABNORMAL) POCT Glucose, Fingerstick (11/15/2024 11:09 AM EST) POC Glucose 305(H) 65 - 99 mg/dL 11/15/2024 11:24 AM EST Blood specimen / Unknown 11/15/2024 11:09 AM EST 11/15/2024 11:24 AM EST Dallas Camejo MD POINT OF CARE TEST O JOSEPH Performing Organization Address [facility] LAB See Below * Prepare RBC's:Prepare in: Units; Number of Units: 4; Transfusion Indications: Hemoglobin less than 7 gm/dl or HCT less than 21% (11/15/2024 10:54 AM EST) Pathologist [facility] Units Ordered 4 11/15/2024 11:04 AM EST Serum specimen / Unknown 11/15/2024 10:54 AM EST 11/16/2024 9:11 AM EST Cristina Rodriguez APRN BLOOD BANK PRODUCT ORDERABLES Performing Organization Address [facility] LAB See Below * Phosphorus (AM) (11/15/2024 8:08 AM EST) Phosphorus 4.3 2.7 - 4.5 mg/dL 11/15/2024 9:21 AM EST [facility] Blood (Plasma/Serum) 11/15/2024 8:08 AM EST 11/15/2024 8:57 AM EST Maddison Villalpando MD LAB BLOOD ORDERABLES Performing Organization Address City/[facility]/[place] [address], [place] [address] * Magnesium (AM) (11/15/2024 8:08 AM EST) Magnesium 2.1 1.6 - 2.7 mg/dL 11/15/2024 9:21 AM [facility] Blood (Plasma/Serum) 11/15/2024 8:08 AM EST 11/15/2024 8:57 AM EST Maddison Villalpando MD LAB BLOOD ORDERABLES Performing Organization Address [facility]/[place] [address], [place] [address] * (ABNORMAL) Basic Metabolic Panel (AM) (11/15/2024 8:08 AM EST) Glucose 218(H) 65 - 99 mg/dL 11/15/2024 9:21 AM [facility] Comment:Fasting: <100 mg/dL, Non-Fasting: <200 mg/dL (ADA 2004) Blood Urea Nitrogen (BUN) 59(H) 8 - 21 mg/dL 11/15/2024 9:21 AM [facility] Creatinine 1.8(H) 0.5 - 1.3 mg/dL 11/15/2024 9:21 AM [facility] eGFR 42(L) >59 11/15/2024 9:21 AM [facility] Comment:CKD-EPI (2020) in mL /min/1.73 sq meters. Sodium 131(L) 136 - 145 mmol/L 11/15/2024 9:21 AM [facility] Potassium 3.9 3.4 - 5.3 mmol/L 11/15/2024 9:21 AM [facility] Chloride 85(L) 98 - 107 mmol/L 11/15/2024 9:21 AM [facility] CO2 34(H) 22 - 33 mmol/L 11/15/2024 9:21 AM [facility] Anion Gap 12 7 - 17 11/15/2024 9:21 AM [facility] Calcium 9.4 8.7 - 10.5 mg/dL 11/15/2024 9:21 AM [facility] BUN/Creatinine Ratio 33(H) 10.0 - 25.0 Ratio 11/15/2024 9:21 AM [facility] Blood (Plasma/Serum) 11/15/2024 8:08 AM EST 11/15/2024 8:57 AM EST Maddison Villalpando MD [place] [address], [place] [address] * (ABNORMAL) Complete Blood Count WITHOUT Differential - in AM (11/15/2024 8:08 AM EST) White Blood Cell Count 11.8(H) 4.0 - 11.0 Thou/uL 11/15/2024 9:06 AM [facility] Platelet Count 485(H) 150 - 450 Thou/uL 11/15/2024 9:06 AM [facility] Hemoglobin 8.9(L) 13.0 - 17.7 g/dL 11/15/2024 9:06 AM [facility] Hematocrit 28.9(L) 39.0 - 54.0 % 11/15/2024 9:06 AM [facility] Red Blood Cell Count 3.27(L) 4.50 - 6.20 Mil/uL 11/15/2024 9:06 AM [facility] MCV 88 80 - 100 fL 11/15/2024 9:06 AM [facility] MCH 27.2 27.0 - 31.0 pg 11/15/2024 9:06 AM [facility] MCHC 30.8 30.0 - 36.0 g/dL 11/15/2024 9:06 AM [facility] RDW 16.8(H) 11.5 - 14.5 % 11/15/2024 9:06 AM [facility] MPV 10.4 7.5 - 12.5 fL 11/15/2024 9:06 AM EST [facility] Blood Blood specimen / Unknown 11/15/2024 8:08 AM EST 11/15/2024 8:57 AM EST Maddison Villalpando MD LAB BLOOD ORDERABLES Performing Organization Address [facility] [place] [address], [place] [address] * (ABNORMAL) proBNP, N-terminal (11/15/2024 8:08 AM EST) proBNP, N-terminal 429(H) <125 pg/mL 11/15/2024 9:21 AM EST [facility] Blood Plasma specimen / Unknown 11/15/2024 8:08 AM EST 11/15/2024 8:57 AM EST Valencia Lau APRN LAB BLOOD ORDERAB LES Performing Organization Address [facility]/[place] [address], [place] [address] * (ABNORMAL) POCT Glucose, Fingerstick (11/15/2024 7:36 AM EST) POC Glucose 230(H) 65 - 99 mg/dL 11/15/2024 7:54 AM EST Blood specimen / Unknown 11/15/2024 7:36 AM EST 11/15/2024 7:54 AM EST Dallas Camejo MD POINT OF CARE TEST O RDERABLES HOSPITAL LAB See Below * (ABNORMAL) POCT Glucose, Fingerstick (11/14/2024 7:51 PM EST) POC Glucose 252(H) 65 - 99 mg/dL 11/14/2024 7:54 PM EST Blood specimen / Unknown 11/14/2024 7:51 PM EST 11/14/2024 7:54 PM EST Dallas Camejo MD POINT OF CARE TEST O RDGHANSHYAM Performing Organization Address [facility] LAB See Below * (ABNORMAL) POCT Glucose, Fingerstick (11/14/2024 4:10 PM EST) POC Glucose 237(H) 65 - 99 mg/dL 11/14/2024 4:15 PM EST Blood specimen / Unknown 11/14/2024 4:10 PM EST 11/14/2024 4:15 PM EST Dallas Camejo MD POINT OF CARE TEST O RDERALUCILLE Performing Organization Address [facility] LAB See Below * (ABNORMAL) POCT Glucose, Fingerstick (11/14/2024 11:33 AM EST) POC Glucose 274(H) 65 - 99 mg/dL 11/14/2024 11:49 AM EST Blood specimen / Unknown 11/14/2024 11:33 AM EST 11/14/2024 11:49 AM EST Dallas Camejo MD POINT OF CARE TEST O RDERALUCILLE Performing Organization Address [facility] LAB See Below * (ABNORMAL) Complete Blood Count WITHOUT Differential - STAT (11/14/2024 10:31 AM EST) White Blood Cell Count 10.6 4.0 - 11.0 Thou/uL 11/14/2024 11:21 AM [facility] Platelet Count 471(H) 150 - 450 Thou/uL 11/14/2024 11:21 AM [facility] Hemoglobin 8.9(L) 13.0 - 17.7 g/dL 11/14/2024 11:21 AM [facility] Hematocrit 28.9(L) 39.0 - 54.0 % 11/14/2024 11:21 AM [facility] Red Blood Cell Count 3.25(L) 4.50 - 6.20 Mil/uL 11/14/2024 11:21 AM [facility] MCV 89 80 - 100 fL 11/14/2024 11:21 AM [facility] MCH 27.4 27.0 - 31.0 pg 11/14/2024 11:21 AM [facility] MCHC 30.8 30.0 - 36.0 g/dL 11/14/2024 11:21 AM [facility] RDW 17.1(H) 11.5 - 14.5 % 11/14/2024 11:21 AM [facility] MPV 10.3 7.5 - 12.5 fL 11/14/2024 11:21 AM [facility] Blood Blood specimen / Unknown 11/14/2024 10:31 AM EST 11/14/2024 11:15 AM EST Maddison Villalpando MD LAB BLOOD ORDERABLES Performing Organization Address City/[facility]/[place] [address], [place] [address] * (ABNORMAL) Phosphorus (Routine) (11/14/2024 10:31 AM EST) Phosphorus 6.1(H) 2.7 - 4.5 mg/dL 11/14/2024 11:39 AM [facility] Blood (Plasma/Serum) 11/14/2024 10:31 AM EST 11/14/2024 11:15 AM EST Maddison Villalpando MD [place] [address], [place] [address] * Magnesium (Routine) (11/14/2024 10:31 AM EST) Magnesium 2.1 1.6 - 2.7 mg/dL 11/14/2024 11:39 AM [facility] Blood (Plasma/Serum) 11/14/2024 10:31 AM EST 11/14/2024 11:15 AM EST Maddison Villalpando MD LAB BLOOD ORDERABLES Performing Organization Address City/[facility] Co de Phone Number [facility] [address] [place] [address], [facility] [address] [place] [address] * (ABNORMAL) Basic Metabolic Panel (STAT) (11/14/2024 10:31 AM EST) Glucose 319(H) 65 - 99 mg/dL 11/14/2024 11:39 AM [facility] Comment:Fasting: <100 mg/dL, Non-Fasting: <200 mg/dL (ADA 2004) Blood Urea Nitrogen (BUN) 65(H) 8 - 21 mg/dL 11/14/2024 11:39 AM [facility] Creatinine 2.1(H) 0.5 - 1.3 mg/dL 11/14/2024 11:39 AM [facility] eGFR 35(L) >59 11/14/2024 11:39 AM [facility] Comment:CKD-EPI (2020) in mL /min/1.73 sq meters. Sodium 132(L) 136 - 145 mmol/L 11/14/2024 11:39 AM [facility] Potassium 4.0 3.4 - 5.3 mmol/L 11/14/2024 11:39 AM [facility] Chloride 85(L) 98 - 107 mmol/L 11/14/2024 11:39 AM [facility] CO2 34(H) 22 - 33 mmol/L 11/14/2024 11:39 AM [facility] Anion Gap 13 7 - 17 11/14/2024 11:39 AM [facility] Calcium 9.4 8.7 - 10.5 mg/dL 11/14/2024 11:39 AM [facility] BUN/Creatinine Ratio 31(H) 10.0 - 25.0 Ratio 11/14/2024 11:39 AM [facility] Blood (Plasma/Serum) 11/14/2024 10:31 AM EST 11/14/2024 11:15 AM EST Maddison Villalpando MD LAB BLOOD ORDERABLES Performing Organization Address City/[facility] de Phone Number [address] [address], [address] [address] * (ABNORMAL) POCT Glucose, Fingerstick (11/14/2024 7:45 AM EST) POC Glucose 224(H) 65 - 99 mg/dL 11/14/2024 7:46 AM EST Blood specimen / Unknown 11/14/2024 7:45 AM EST 11/14/2024 7:46 AM EST Dallas Camejo MD POINT OF CARE TEST O RDERABLES Performing Organization Address [facility] Number [facility] LAB See Below * (ABNORMAL) POCT Glucose, Fingerstick (11/13/2024 11:30 PM EST) POC Glucose 268(H) 65 - 99 mg/dL 11/13/2024 11:30 PM EST Blood specimen / Unknown 11/13/2024 11:30 PM EST 11/13/2024 11:31 PM EST Dallas Camejo MD POINT OF CARE TEST O RDERABLES Performing Organization Address [facility] Number [facility] LAB See Below * (ABNORMAL) POCT Glucose, Fingerstick (11/13/2024 9:19 PM EST) POC Glucose 366(H) 65 - 99 mg/dL 11/13/2024 9:20 PM EST Blood specimen / Unknown 11/13/2024 9:19 PM EST 11/13/2024 9:20 PM EST Dallas Camejo MD POINT OF CARE TEST O RDERABLES Performing Organization Address [facility] Phone Number [facility] LAB See Below * (ABNORMAL) POCT Glucose, Fingerstick (11/13/2024 4:45 PM EST) POC Glucose 196(H) 65 - 99 mg/dL 11/13/2024 4:50 PM EST Blood specimen / Unknown 11/13/2024 4:45 PM EST 11/13/2024 4:50 PM EST Dallas Camejo MD POINT OF CARE TEST O RDERABLES Performing Organization Address [facility] Co de Phone Number [facility] LAB See Below * (ABNORMAL) POCT Glucose, Fingerstick (11/13/2024 11:54 AM EST) POC Glucose 232(H) 65 - 99 mg/dL 11/13/2024 11:55 AM EST Blood specimen / Unknown 11/13/2024 11:54 AM EST 11/13/2024 11:55 AM EST Dallas Camejo MD POINT OF CARE TEST O RDERABLES Performing Organization Address [facility] Phone Number [facility] LAB See Below * (ABNORMAL) POCT Glucose, Fingerstick (11/13/2024 8:12 AM EST) POC Glucose 159(H) 65 - 99 mg/dL 11/13/2024 8:15 AM EST Blood specimen / Unknown 11/13/2024 8:12 AM EST 11/13/2024 8:15 AM EST Dallas Camejo MD POINT OF CARE TEST O RDERABLES Performing Organization Address [facility] Co ks Phone Number [facility] LAB See Below * (ABNORMAL) proBNP, N-terminal (11/13/2024 7:30 AM EST) proBNP, N-terminal 994(H) <125 pg/mL 11/13/2024 11:05 AM EST [facility] Plasma specimen / Unknown 11/13/2024 7:30 AM EST 11/13/2024 8:09 AM EST Maddison Villalpando MD LAB BLOOD ORDERABLES Performing Organization Address [facility] Co de Phone Number [address] [address], [address] [address] * (ABNORMAL) Phosphorus (AM) (11/13/2024 7:30 AM EST) Pathologist [facility] Phosphorus 4.9(H) 2.7 - 4.5 mg/dL 11/13/2024 8:45 AM [facility] Blood (Plasma/Serum) 11/13/2024 7:30 AM EST 11/13/2024 8:09 AM EST Maddison Villalpando MD LAB BLOOD ORDERABLES Performing Organization Address City/[facility]/[place] [address], [place] [address] * Magnesium (AM) (11/13/2024 7:30 AM EST) Pathologist [facility] Magnesium 1.7 1.6 - 2.7 mg/dL 11/13/2024 8:45 AM [facility] Blood (Plasma/Serum) 11/13/2024 7:30 AM EST 11/13/2024 8:09 AM EST Maddison Villalpando MD [place] [address], [place] [address] * (ABNORMAL) Complete Blood Count WITHOUT Differential - in AM (11/13/2024 7:30 AM EST) Pathologist [facility] White Blood Cell Count 11.8(H) 4.0 - 11.0 Thou/uL 11/13/2024 8:28 AM [facility] Platelet Count 486(H) 150 - 450 Thou/uL 11/13/2024 8:28 AM [facility] Hemoglobin 9.2(L) 13.0 - 17.7 g/dL 11/13/2024 8:28 AM [facility] Hematocrit 29.8(L) 39.0 - 54.0 % 11/13/2024 8:28 AM [facility] Red Blood Cell Count 3.34(L) 4.50 - 6.20 Mil/uL 11/13/2024 8:28 AM [facility] MCV 89 80 - 100 fL 11/13/2024 8:28 AM [facility] MCH 27.5 27.0 - 31.0 pg 11/13/2024 8:28 AM [facility] MCHC 30.9 30.0 - 36.0 g/dL 11/13/2024 8:28 AM [facility] RDW 16.9(H) 11.5 - 14.5 % 11/13/2024 8:28 AM [facility] MPV 9.8 7.5 - 12.5 fL 11/13/2024 8:28 AM [facility] Blood Blood specimen / Unknown 11/13/2024 7:30 AM EST 11/13/2024 8:09 AM EST Maddison Villalpando MD LAB BLOOD ORDERABLES Performing Organization Address City/State/[facility] [place] [address], [place] [address] * (ABNORMAL) Basic Metabolic Panel (AM) (11/13/2024 7:30 AM EST) Glucose 154(H) 65 - 99 mg/dL 11/13/2024 8:45 AM [facility] Comment:Fasting: <100 mg/dL, Non-Fasting: <200 mg/dL (ADA 2005) Blood Urea Nitrogen (BUN) 44(H) 8 - 21 mg/dL 11/13/2024 8:45 AM [facility] Creatinine 1.7(H) 0.5 - 1.3 mg/dL 11/13/2024 8:45 AM [facility] eGFR 45(L) >59 11/13/2024 8:45 AM [facility] Comment:CKD-EPI (2020) in mL /min/1.73 sq meters. Sodium 140 136 - 145 mmol/L 11/13/2024 8:45 AM [facility] Potassium 3.6 3.4 - 5.3 mmol/L 11/13/2024 8:45 AM [facility] Chloride 91(L) 98 - 107 mmol/L 11/13/2024 8:45 AM [facility] CO2 35(H) 22 - 33 mmol/L 11/13/2024 8:45 AM [facility] Anion Gap 14 7 - 17 11/13/2024 8:45 AM [facility] Calcium 9.7 8.7 - 10.5 mg/dL 11/13/2024 8:45 AM [facility] BUN/Creatinine Ratio 26(H) 10.0 - 25.0 Ratio 11/13/2024 8:45 AM [facility] Blood (Plasma/Serum) 11/13/2024 7:30 AM EST 11/13/2024 8:09 AM EST Maddison Villalpando MD LAB BLOOD ORDERABLES Performing Organization Address City/[facility]/[place] [address], [place] [address] * (ABNORMAL) POCT Glucose, Fingerstick (11/13/2024 3:59 AM EST) POC Glucose 156(H) 65 - 99 mg/dL 11/13/2024 4:03 AM EST Blood specimen / Unknown 11/13/2024 3:59 AM EST 11/13/2024 4:03 AM EST Dallas Camejo MD POINT OF CARE TEST O RDERABLES [facility]OSPITAL LAB See Below * (ABNORMAL) POCT Glucose, Fingerstick (11/13/2024 12:27 AM EST) POC Glucose 139(H) 65 - 99 mg/dL 11/13/2024 12:31 AM EST Blood specimen / Unknown 11/13/2024 12:27 AM EST 11/13/2024 12:31 AM EST Dallas Camejo MD POINT OF CARE TEST O RDERABLES [facility]OSPITAL LAB See Below * (ABNORMAL) POCT Glucose, Fingerstick (11/12/2024 8:32 PM EST) POC Glucose 248(H) 65 - 99 mg/dL 11/12/2024 8:33 PM EST Blood specimen / Unknown 11/12/2024 8:32 PM EST 11/12/2024 8:33 PM EST Dallas Camejo MD POINT OF CARE TEST O RDERALUCILLE Performing Organization Address [facility] Co de Phone Number HOSPITAL LAB See Below * (ABNORMAL) POCT Glucose, Fingerstick (11/12/2024 4:41 PM EST) POC Glucose 200(H) 65 - 99 mg/dL 11/12/2024 5:01 PM EST Blood specimen / Unknown 11/12/2024 4:41 PM EST 11/12/2024 5:01 PM EST Dallas Camejo MD POINT OF CARE TEST O JOSEPH Performing Organization Address [facility] de Phone Number HOSPITAL LAB See Below * MRI Brain w/o contrast (11/12/2024 1:43 PM EST) Anatomical Region Laterality Modality Head Magnetic Resonan ce 11/12/2024 12:3 0 PM EST Impressions 11/13/2024 12:20 PM EST No acute intracranial findings or suspicious intracranial lesions. No septic emboli. Narrative 11/13/2024 12:20 PM EST EXAMINATION: MRI OF THE BRAIN WITHOUT CONTRAST. INDICATION: 63 years old, Male concern for septic emboli in setting of endocarditis, now with involontary movements and tremors TECHNIQUE: Multiplanar multisequence magnetic resonance images of the brain without intravenous contrast . COMPARISON: August 08, 2025 FINDINGS: ACUTE INTRACRANIAL ABNORMALITIES: No acute infarct. No acute intracranial hemorrhage. EXTRA-AXIAL SPACES: No extra-axial fluid collection. POSTOPERATIVE CHANGES AND INTRACRANIAL LESIONS: No suspicious intracranial lesions. VENTRICULAR SYSTEM: Ventricles and extraventricular CSF spaces are widened, consistent with mild global parenchymal volume loss. WHITE MATTER: White matter is within normal limits. SKULL BASE/PITUITARY: No crowding in the foramen magnum. Basal cisterns are widely patent and pituitary is normal appearing. VASCULATURE: Patent major intracranial flow-voids. CALVARIUM: No suspicious calvarial lesions. ORBITS/SINUSES/MASTOIDS: No intraorbital masses. No acute paranasal sinus disease. Mastoids are well-aerated. Procedure Note Jose Gonzáles MD - 11/13/2024 EXAMINATION: MRI OF THE BRAIN WITHOUT CONTRAST. INDICATION: 63 years old, Male concern for septic emboli in setting of endocarditis, now with involontary movements and tremors TECHNIQUE: Multiplanar multisequence magnetic resonance images of the brain without intravenous contrast . COMPARISON: August 08, 2025 FINDINGS: ACUTE INTRACRANIAL ABNORMALITIES: No acute infarct. No acute intracranial hemorrhage. EXTRA-AXIAL SPACES: No extra-axial fluid collection. POSTOPERATIVE CHANGES AND INTRACRANIAL LESIONS: No suspicious intracranial lesions. VENTRICULAR SYSTEM: Ventricles and extraventricular CSF spaces are widened, consistent with mild global parenchymal volume loss. WHITE MATTER: White matter is within normal limits. SKULL BASE/PITUITARY: No crowding in the foramen magnum. Basal cisterns are widely patent and pituitary is normal appearing. VASCULATURE: Patent major intracranial flow-voids. CALVARIUM: No suspicious calvarial lesions. ORBITS/SINUSES/MASTOIDS: No intraorbital masses. No acute paranasal sinus disease. Mastoids are well-aerated. IMPRESSION: No acute intracranial findings or suspicious intracranial lesions. No septic emboli. Luis Degroot MD IMG MRI ORDERABLES * PM DUAL LEAD EVAL WITH PROGRAMMING, [id number] (11/12/2024 1:15 PM EST) Date Time Interrogation Session [id number] PACEART Implantable Pulse Generator Calender Operator Helper [employer] PACEART Implantable Pulse Generator Model [id number] Jaime ESCOBAR PACEART Implantable Pulse Generator Serial Number [id number] PACEART Implantable Pulse Generator Type Pacemaker PACEART Implantable Pulse Generator Implant Date 20,160,125,19 0,000 PACEART Otf Setting Mode (NBG Code) AAIR<==>DDDR PACEART Otf Setting Lower Rate Limit 60 {beats}/m in PACEART Otf Setting Maximum Tracking Rate 130 {beats}/m in PACEART Otf Setting Maximum Sensor Rate 130 {beats}/m in PACEART Otf Setting Hysterisis Rate DISABLED PACEART Otf Setting JUSTIN Delay Low 230 ms PACEART Otf Setting PAV Delay Low 250 ms PACEART Otf prob AV delay adaptive status DISABLED PACEART Otf Setting AT Mode Switch Rate 171 {beats}/m in PACEART RA Sensing Polarity Bipolar PACEART RA Sensitivity 0.45 mV PACEART RV Sensing Polarity Bipolar PACEART RV Sensing Anode Location Right Ventricle PACEART RV Sensing Anode Terminal Ring PACEART RV Sensing Cathode Location Right Ventricle PACEART RV Sensing Cathode Terminal Tip PACEART RV Sensitivity 0.9 mV PACEART RA Pacing Polarity Bipolar PACEART Lead Channel Setting Pacing Anode Location Right Atrium PACEART RA Pacing Anode Terminal Ring PACEART Lead Channel Setting Sensing Cathode Location Right Atrium PACEART RA Pacing Cathode Terminal Tip PACEART RA Pacing Pulse Width 0.4 ms PACEART RA Pacing Amplitude 1.5 V PACEART RV Pacing Polarity Bipolar PACEART Lead Channel Setting Pacing Anode Location Right Ventricle PACEART RV Pacing Anode Terminal Ring PACEART Lead Channel Setting Sensing Cathode Location Right Ventricle PACEART RV Pacing Cathode Terminal Tip PACEART RV Pacing Pulse Width 0.4 ms PACEART RV Pacing Amplitude 1.75 V PACEART Zone Setting Type Category VF PACEART Zone Setting Vendor Type Category V High Rate PACEART Zone Setting Type Category VT PACEART Zone Setting Vendor Type Category FastVT PACEART Zone Setting Type Category VT PACEART Zone Setting Vendor Type Category VT PACEART Zone Setting Type Category VT PACEART Zone Setting Vendor Type Category MonVT PACEART Zone Setting Detection Interval 400 ms PACEART Zone Setting Type Category ATRIAL_FIBRIL LATION PACEART Zone Setting Vendor Type Category FastATAF PACEART Zone Setting Type Category AT/AF PACEART Zone Setting Detection Interval 350 ms PACEART Tachy zone therapies summary Monitored PACEART MDT_PROG_TACHY_ZO NE_THERAPIES_1_SE QUENCEID 1 PACEART MDT_PROG_TACHY_ZO NE_THERAPIES_1_ST ATUS Inactive PACEART MDT_PROG_TACHY_ZO NE_THERAPIES_2_SE QUENCEID 2 PACEART MDT_PROG_TACHY_ZO NE_THERAPIES_2_ST ATUS Inactive PACEART MDT_PROG_TACHY_ZO NE_THERAPIES_3_SE QUENCEID 3 PACEART MDT_PROG_TACHY_ZO NE_THERAPIES_3_ST ATUS Inactive PACEART Tachy zone therapies summary Monitored PACEART RA Lead Impedance Value 418 ohm PACEART RA Lead Impedance Value 304 ohm PACEART RA Lead Sensing Intrinsic Amplitude 2.125 mV PACEART RA Lead Sensing Intrinsic Amplitude 1.625 mV PACEART RA Lead Pacing Threshold Amplitude 0.75 V PACEART RA Lead Pacing Threshold Pulse Width 0.4 ms PACEART RV Lead Impedance Value 418 ohm PACEART RV Lead Impedance Value 342 ohm PACEART RV Sensing Intrinsic Amplitude 3 mV PACEART RV Sensing Intrinsic Amplitude 3.5 mV PACEART RV Lead Pacing Threshold Amplitude 0.875 V PACEART RV Lead Pacing Threshold Pulse Width 0.4 ms PACEART RV Stat leads lowpower evangelista Ring PACEART RV Stat leads lowpower evangelista Tip PACEART Battery Status OK PACEART Battery Remaining Longevity 24 mo PACEART Battery Voltage 2.92 V PACEART RA Percent Paced-since last reset 76.76 % PACEART RV Percent Paced-since last reset 99.97 % PACEART Otf Statistic AP STOKER INSTALLATION MECHANIC Percent 76.74 % PACEART Otf Statistic STOKER INSTALLATION MECHANIC Percent 23.23 % PACEART Otf Statistic AP VS Percent 0.01 % PACEART Otf Statistic VS Percent 0.01 % PACEART AT/AF [place] Percent 0 % PACEART Episode Statistic Recent Count 0 PACEART STAT Episode type AT/AF PACEART Episode Statistic Recent Count 0 PACEART STAT Episode type SVT PACEART Episode Statistic Recent Count 0 PACEART STAT Episode type VT PACEART Episode Statistic Recent Count 0 PACEART STAT Episode type VT PACEART STAT Episode type AT/AF PACEART STAT Episode type SVT PACEART STAT Episode type VT PACEART STAT Episode type VT PACEART Anatomical Region Laterality Modality Other 11/12/2024 1:41 PM EST Narrative 11/16/2024 1:58 PM EST Pacemaker interrogation performed pre MRI scan. MRI checklist completed. Underlying rhythm is /no ventricular rate > 40 bpm. MRI mode enabled. Mode programmed to DOO @ 80 bpm. Post MRI scan, MRI mode disabled. Lead tests within normal range. All original programming restored. Farhana Sanon RN Maddison Villalpando MD CV CARDIAC SERVICES ORDERABLES * (ABNORMAL) POCT Glucose, Fingerstick (11/12/2024 11:45 AM EST) POC Glucose 286(H) 65 - 99 mg/dL 11/12/2024 12:00 PM EST Blood specimen / Unknown 11/12/2024 11:45 AM EST 11/12/2024 11:57 AM EST Dallas Camejo MD POINT OF CARE TEST O RDERABLES Performing Organization Address City/[facility]/ZIP Co de Phone Number [facility] See Below * (ABNORMAL) POCT Glucose, Fingerstick (11/12/2024 8:01 AM EST) POC Glucose 140(H) 65 - 99 mg/dL 11/12/2024 8:18 AM EST Blood specimen / Unknown 11/12/2024 8:01 AM EST 11/12/2024 8:18 AM EST Dallas Camejo MD POINT OF CARE TEST O RDERALUCILLE Performing Organization Address [facility] Co de Phone Number [facility] See Below * Phosphorus (11/12/2024 5:00 AM EST) Phosphorus 4.5 2.7 - 4.5 mg/dL 11/12/2024 6:01 AM EST [facility] Blood (Plasma/Serum) 11/12/2024 5:00 AM EST 11/12/2024 5:22 AM EST Luis Degroot MD LAB BLOOD ORDERABLES Performing Organization Address [facility] [place] [address], [place] [address] * Magnesium (11/12/2024 5:00 AM EST) Magnesium 1.8 1.6 - 2.7 mg/dL 11/12/2024 6:01 AM EST [facility] Blood (Plasma/Serum) 11/12/2024 5:00 AM EST 11/12/2024 5:22 AM EST Luis Degroot MD LAB BLOOD ORDERABLES [address] [address], [address] [address] * (ABNORMAL) Complete Blood Count, WITHOUT Differential (routine) (11/12/2024 5:00 AM EST) White Blood Cell Count 11.1(H) 4.0 - 11.0 Thou/uL 11/12/2024 5:47 AM [facility] Platelet Count 456(H) 150 - 450 Thou/uL 11/12/2024 5:47 AM [facility] Hemoglobin 8.1(L) 13.0 - 17.7 g/dL 11/12/2024 5:47 AM [facility] Hematocrit 26.3(L) 39.0 - 54.0 % 11/12/2024 5:47 AM [facility] Red Blood Cell Count 2.94(L) 4.50 - 6.20 Mil/uL 11/12/2024 5:47 AM [facility] MCV 90 80 - 100 fL 11/12/2024 5:47 AM [facility] MCH 27.6 27.0 - 31.0 pg 11/12/2024 5:47 AM [facility] MCHC 30.8 30.0 - 36.0 g/dL 11/12/2024 5:47 AM [facility] RDW 16.9(H) 11.5 - 14.5 % 11/12/2024 5:47 AM [facility] MPV 9.8 7.5 - 12.5 fL 11/12/2024 5:47 AM [facility] Blood Blood specimen / Unknown 11/12/2024 5:00 AM EST 11/12/2024 5:22 AM EST Luis Degroot MD LAB BLOOD ORDERABLES [address] [address], [address] [address] * (ABNORMAL) Basic Metabolic Panel (11/12/2024 5:00 AM EST) Glucose 126(H) 65 - 99 mg/dL 11/12/2024 6:01 AM [facility] Comment:Fasting: <100 mg/dL, Non-Fasting: <200 mg/dL (ADA 2004) Blood Urea Nitrogen (BUN) 44(H) 8 - 21 mg/dL 11/12/2024 6:01 AM [facility] Creatinine 1.6(H) 0.5 - 1.3 mg/dL 11/12/2024 6:01 AM [facility] eGFR 48(L) >59 11/12/2024 6:01 AM [facility] Comment:CKD-EPI (2020) in mL /min/1.73 sq meters. Sodium 138 136 - 145 mmol/L 11/12/2024 6:01 AM [facility] Potassium 3.7 3.4 - 5.3 mmol/L 11/12/2024 6:01 AM [facility] Chloride 96(L) 98 - 107 mmol/L 11/12/2024 6:01 AM [facility] CO2 30 22 - 33 mmol/L 11/12/2024 6:01 AM [facility] Anion Gap 12 7 - 17 11/12/2024 6:01 AM [facility] Calcium 9.1 8.7 - 10.5 mg/dL 11/12/2024 6:01 AM [facility] BUN/Creatinine Ratio 28(H) 10.0 - 25.0 Ratio 11/12/2024 6:01 AM [facility] Blood (Plasma/Serum) 11/12/2024 5:00 AM EST 11/12/2024 5:22 AM EST Luis Degroot MD LAB BLOOD ORDERABLES [address] [address], [address] [address] * (ABNORMAL) POCT Glucose, Fingerstick (11/12/2024 4:51 AM EST) POC Glucose 140(H) 65 - 99 mg/dL 11/12/2024 4:53 AM EST Blood specimen / Unknown 11/12/2024 4:51 AM EST 11/12/2024 4:53 AM EST Dallas Camejo MD POINT OF CARE TEST O RDERABLES Performing Organization Address [facility] Phone Number [facility] See Below * (ABNORMAL) POCT Glucose, Fingerstick (11/12/2024 12:42 AM EST) POC Glucose 147(H) 65 - 99 mg/dL 11/12/2024 12:43 AM EST Blood specimen / Unknown 11/12/2024 12:42 AM EST 11/12/2024 12:43 AM EST Dallas Camejo MD POINT OF CARE TEST O RDERALUCILLE Performing Organization Address [facility] See Below * (ABNORMAL) POCT Glucose, Fingerstick (11/12/2024 12:21 AM EST) POC Glucose 130(H) 65 - 99 mg/dL 11/12/2024 12:22 AM EST Blood specimen / Unknown 11/12/2024 12:21 AM EST 11/12/2024 12:22 AM EST Dallas Camejo MD POINT OF CARE TEST O RDERALUCILLE Performing Organization Address [facility] Phone Number [facility] See Below * (ABNORMAL) POCT Glucose, Fingerstick (11/11/2024 9:17 PM EST) POC Glucose 224(H) 65 - 99 mg/dL 11/11/2024 9:21 PM EST Blood specimen / Unknown 11/11/2024 9:17 PM EST 11/11/2024 9:21 PM EST Dallas Camejo MD POINT OF CARE TEST O RDERALUCILLE Performing Organization Address [facility] Co ks Phone Number [facility] See Below * (ABNORMAL) POCT Glucose, Fingerstick (11/11/2024 5:06 PM EST) POC Glucose 149(H) 65 - 99 mg/dL 11/11/2024 5:37 PM EST Blood specimen / Unknown 11/11/2024 5:06 PM EST 11/11/2024 5:37 PM EST Dallas Camejo MD POINT OF CARE TEST O RDERABLES HOSPITAL LAB See Below * PM DUAL LEAD EVAL WITH PROGRAMMING, [id number] (11/11/2024 4:33 PM EST) Date Time Interrogation Session [id number],17 1,358 PACEART Implantable Pulse Generator Calender Operator Helper [employer] PACEART Implantable Pulse Generator Model [id number] Jaime ESCOBAR PACEART Implantable Pulse Generator Serial Number [id number] PACEART Implantable Pulse Generator Type Pacemaker PACEART Implantable Pulse Generator Implant Date 20,160,125,19 0,000 PACEART Otf Setting Mode (NBG Code) AAIR<==>DDDR PACEART Otf Setting Lower Rate Limit 60 {beats}/m in PACEART Otf Setting Maximum Tracking Rate 130 {beats}/m in PACEART Otf Setting Maximum Sensor Rate 130 {beats}/m in PACEART Otf Setting Hysterisis Rate DISABLED PACEART Otf Setting JUSTIN Delay Low 230 ms PACEART Otf Setting PAV Delay Low 250 ms PACEART Otf prob AV delay adaptive status DISABLED PACEART Otf Setting AT Mode Switch Rate 171 {beats}/m in PACEART RA Sensing Polarity Bipolar PACEART RA Sensitivity 0.45 mV PACEART RV Sensing Polarity Bipolar PACEART RV Sensing Anode Location Right Ventricle PACEART RV Sensing Anode Terminal Ring PACEART RV Sensing Cathode Location Right Ventricle PACEART RV Sensing Cathode Terminal Tip PACEART RV Sensitivity 0.9 mV PACEART RA Pacing Polarity Bipolar PACEART Lead Channel Setting Pacing Anode Location Right Atrium PACEART RA Pacing Anode Terminal Ring PACEART Lead Channel Setting Sensing Cathode Location Right Atrium PACEART RA Pacing Cathode Terminal Tip PACEART RA Pacing Pulse Width 0.4 ms PACEART RA Pacing Amplitude 1.5 V PACEART RV Pacing Polarity Bipolar PACEART Lead Channel Setting Pacing Anode Location Right Ventricle PACEART RV Pacing Anode Terminal Ring PACEART Lead Channel Setting Sensing Cathode Location Right Ventricle PACEART RV Pacing Cathode Terminal Tip PACEART RV Pacing Pulse Width 0.4 ms PACEART RV Pacing Amplitude 1.75 V PACEART Zone Setting Type Category VF PACEART Zone Setting Vendor Type Category V High Rate PACEART Zone Setting Type Category VT PACEART Zone Setting Vendor Type Category FastVT PACEART Zone Setting Type Category VT PACEART Zone Setting Vendor Type Category VT PACEART Zone Setting Type Category VT PACEART Zone Setting Vendor Type Category MonVT PACEART Zone Setting Detection Interval 400 ms PACEART Zone Setting Type Category ATRIAL_FIBRIL LATION PACEART Zone Setting Vendor Type Category FastATAF PACEART Zone Setting Type Category AT/AF PACEART Zone Setting Detection Interval 350 ms PACEART Tachy zone therapies summary Monitored PACEART MDT_PROG_TACHY_ZO NE_THERAPIES_1_SE QUENCEID 1 PACEART MDT_PROG_TACHY_ZO NE_THERAPIES_1_ST ATUS Inactive PACEART MDT_PROG_TACHY_ZO NE_THERAPIES_2_SE QUENCEID 2 PACEART MDT_PROG_TACHY_ZO NE_THERAPIES_2_ST ATUS Inactive PACEART MDT_PROG_TACHY_ZO NE_THERAPIES_3_SE QUENCEID 3 PACEART MDT_PROG_TACHY_ZO NE_THERAPIES_3_ST ATUS Inactive PACEART Tachy zone therapies summary Monitored PACEART RA Lead Impedance Value 456 ohm PACEART RA Lead Impedance Value 323 ohm PACEART RA Lead Sensing Intrinsic Amplitude 1.375 mV PACEART RA Lead Sensing Intrinsic Amplitude 1.375 mV PACEART RA Lead Pacing Threshold Amplitude 0.75 V PACEART RA Lead Pacing Threshold Pulse Width 0.4 ms PACEART RV Lead Impedance Value 456 ohm PACEART RV Lead Impedance Value 342 ohm PACEART RV Sensing Intrinsic Amplitude 3 mV PACEART RV Sensing Intrinsic Amplitude 3.5 mV PACEART RV Lead Pacing Threshold Amplitude 0.875 V PACEART RV Lead Pacing Threshold Pulse Width 0.4 ms PACEART RV Stat leads lowpower evangelista Ring PACEART RV Stat leads lowpower evangelista Tip PACEART Battery Status OK PACEART Battery Remaining Longevity 24 mo PACEART Battery Voltage 2.92 V PACEART RA Percent Paced-since last reset 71.22 % PACEART RV Percent Paced-since last reset 89.06 % PACEART Otf Statistic AP STOKER INSTALLATION MECHANIC Percent 62.37 % PACEART Otf Statistic STOKER INSTALLATION MECHANIC Percent 26.83 % PACEART Otf Statistic AP VS Percent 8.97 % PACEART Otf Statistic VS Percent 1.83 % PACEART AT/AF [place] Percent 0 % PACEART Episode Statistic Recent Count 0 PACEART STAT Episode type AT/AF PACEART Episode Statistic Recent Count 0 PACEART STAT Episode type SVT PACEART Episode Statistic Recent Count 0 PACEART STAT Episode type VT PACEART Episode Statistic Recent Count 0 PACEART STAT Episode type VT PACEART STAT Episode type AT/AF PACEART STAT Episode type SVT PACEART STAT Episode type VT PACEART STAT Episode type VT PACEART Anatomical Region Laterality Modality Other 11/11/2024 5:13 PM EST Narrative 11/15/2024 10:04 AM EST Pacemaker evaluation completed on N12, device interrogation ordered for function. Presenting rhythm: AP / STOKER INSTALLATION MECHANIC @ 60 bpm. Underlying rhythm: SB @ 58. Atrial pacing 71.2%, ventricular pacing 89%. Battery and lead parameters evaluated and within normal limits. Normal pacemaker function. Sam Mcgowan RN Nani Hollis PA-C CV CARDIAC SERVICES ORDERABLES * ECHOCARDIOGRAM TRANSESOPHAGEAL (11/11/2024 3:34 PM EST) MV mean gradient mean 1.0 mmHg MV VTI MEAN 31.3 cm MV mean gradient 1.0 mmHg MV VTI 31.3 cm MV peak gradient 4.0 mmHg Heart Rate 61 bpm BP Systolic 138 mmHg BP Diastolic 64 mmHg Height 74.00 inches Weight 264.00 lbs BSA 2.45 m2 Sinuses of Valsalva 4.0 cm Sinuses of Valsalva Index 1.6 cm/m2 Ascending aorta 3.6 cm Ascending aorta Index 1.5 cm/m2 Anatomical Region Laterality Modality Ultrasound Narrative 11/11/2024 5:58 PM EST Images from the original result were not included. ?There is a small mobile echodensity posterior to the mitral valve annulus, adjacent to the watchman device (clip 62, 64). This could be a possible vegetation versus benign fibrous strand however in the setting of bacteremia vegetation cannot be excluded. ?Left ventricular systolic function is mildly decreased with an estimated ejection fraction of 40-44%. ?Right ventricular systolic function is mildly reduced. ?There is a patent foramen ovale with predominant left to right shunting indicated by color Doppler. ?There is mild apical tethering of the mitral valve leaflets.The mitral leaflets are mildly thickened. There is moderate functional mitral regurgitation with a centrally directed jet. There is no mitral valve stenosis. ?The tricuspid valve annulus is mildly dilated. There is moderate to severe tricuspid regurgitation. ?Compared to previous study on 11/04/2024, Device, pacemaker wire and valvular structures are better visualized. A small focal echodensity is seen posterior to mitral valve annulus andadjacent to watchman device. Mobile echodensity adjacent to Watchman device: Left Ventricle Left ventricular systolic function is mildly decreased with an estimated ejection fraction of 40-44%. Right Ventricle Right ventricular systolic function is mildly reduced. A pacer wire is present in the right ventricle. Left Atrium The pulmonary veins exhibit diastolic dominant flow. There is a Watchman closure device in the left atrial appendage. On the lateral aspect of the device there is a 0.25 mm leak. Right Atrium There is a patent foramen ovale with predominant left to right shunting indicated by color Doppler. A pacemaker wire is present in the right atrium. Mitral Valve There is mild apical tethering of the mitral valve leaflets.The mitral leaflets are mildly thickened. There is moderate functional mitral regurgitation with a centrally directed jet.There is no mitral valve stenosis. There is a small mobile echodensity posterior to the mitral valve annulus, adjacent to the watchman device (clip 62, 64). This could be a possible vegetation, versus benign fibrous strand however in the setting of bacteremia vegetation cannot be excluded. Tricuspid Valve The tricuspid valve annulus is mildly dilated. There is moderate to severe tricuspid regurgitation. There is no evidence of vegetation on the tricuspid valve. There is no tricuspid valve stenosis. Aortic Valve The aortic valve is tricuspid. There is trace aortic regurgitation. There is no aortic valve stenosis. There is no evidence of vegetation on the aortic valve. Pulmonic Valve The pulmonic valve is structurally normal. There is mild pulmonic regurgitation. There is no evidence of vegetation on the pulmonic valve. Ascending Aorta The aortic root and ascending aorta are normal in dimension. There is an atheroma with minimal or no intimal thickening (Grade 1). Pericardium There is a left pleural effusion. There is no pericardial effusion. Study Details Consent was obtained for transesophageal echocardiography. Sedation was provided by anesthesia (see their flowsheet for details). Topical anesthesia was given.The transesophageal probe was inserted atraumatically into the esophagus by the catering assistant. With the patient in a supine position the probe was advanced to approximately 40 cm and the echocardiographic examination was completed. At the end of the examination the TATIANNA probe was removed and the patient was then monitored by anesthesia. No apparent complications were noted from the procedure. Prior Study Compared to previous study on 11/04/2024, Device, pacemaker wire and valvular structures are better visualized. A small focal echodensity is seen posterior to mitral valve annulus andadjacent to watchman device.. Dallas Camejo MD CV ECHO ORDERABLES * Phosphorus (11/11/2024 2:00 PM EST) Phosphorus 4.5 2.7 - 4.5 mg/dL 11/11/2024 3:00 PM EST [facility] Blood (Plasma/Serum) 11/11/2024 2:00 PM EST 11/11/2024 2:19 PM EST Nani Hollis PA-C LAB BLOOD ORDERABLES Performing Organization Address City/[facility]/[place] [address], [place] [address] * Magnesium (11/11/2024 2:00 PM EST) Magnesium 1.8 1.6 - 2.7 mg/dL 11/11/2024 3:00 PM EST [facility] Blood (Plasma/Serum) 11/11/2024 2:00 PM EST 11/11/2024 2:19 PM EST Nani Hollis PA-C LAB BLOOD ORDERABLES Performing Organization Address City/[facility] [place] [address], [place] [address] * (ABNORMAL) Basic Metabolic Panel (11/11/2024 2:00 PM EST) Glucose 124(H) 65 - 99 mg/dL 11/11/2024 3:00 PM [facility] Comment:Fasting: <100 mg/dL, Non-Fasting: <200 mg/dL (ADA 2004) Blood Urea Nitrogen (BUN) 49(H) 8 - 21 mg/dL 11/11/2024 3:00 PM [facility] Creatinine 1.7(H) 0.5 - 1.3 mg/dL 11/11/2024 3:00 PM [facility] eGFR 45(L) >59 11/11/2024 3:00 PM [facility] Comment:CKD-EPI (2020) in mL /min/1.73 sq meters. Sodium 139 136 - 145 mmol/L 11/11/2024 3:00 PM [facility] Potassium 3.4 3.4 - 5.3 mmol/L 11/11/2024 3:00 PM [facility] Chloride 97(L) 98 - 107 mmol/L 11/11/2024 3:00 PM [facility] CO2 30 22 - 33 mmol/L 11/11/2024 3:00 PM [facility] Anion Gap 12 7 - 17 11/11/2024 3:00 PM [facility] Calcium 9.0 8.7 - 10.5 mg/dL 11/11/2024 3:00 PM [facility] BUN/Creatinine Ratio 29(H) 10.0 - 25.0 Ratio 11/11/2024 3:00 PM [facility] Blood (Plasma/Serum) 11/11/2024 2:00 PM EST 11/11/2024 2:19 PM EST Nani Hollis PA-C LAB BLOOD ORDERABLES [address] [address], [address] [address] * (ABNORMAL) POCT Glucose, Fingerstick (11/11/2024 11:53 AM EST) POC Glucose 139(H) 65 - 99 mg/dL 11/11/2024 12:02 PM EST Blood specimen / Unknown 11/11/2024 11:53 AM EST 11/11/2024 12:02 PM EST Dallas Camejo MD POINT OF CARE TEST O RDERABLES Performing Organization Address City/[facility] Co de Phone Number [facility] See Below * (ABNORMAL) POCT Glucose, Fingerstick (11/11/2024 7:31 AM EST) POC Glucose 202(H) 65 - 99 mg/dL 11/11/2024 7:32 AM EST Blood specimen / Unknown 11/11/2024 7:31 AM EST 11/11/2024 7:32 AM EST Dallas Camejo MD POINT OF CARE TEST O RDERABLES Performing Organization Address [facility] Phone Number [facility] See Below * (ABNORMAL) POCT Glucose, Fingerstick (11/11/2024 2:35 AM EST) POC Glucose 174(H) 65 - 99 mg/dL 11/11/2024 3:47 AM EST Blood specimen / Unknown 11/11/2024 2:35 AM EST 11/11/2024 3:46 AM EST Dallas Camejo MD POINT OF CARE TEST O RDERABLES Performing Organization Address [facility] Co de Phone Number [facility] See Below * (ABNORMAL) proBNP, N-terminal (11/11/2024 2:00 AM EST) proBNP, N-terminal 2,964(H) <125 pg/mL 11/11/2024 3:18 AM EST [facility] Blood Plasma specimen / Unknown 11/11/2024 2:00 AM EST 11/11/2024 2:53 AM EST Nani Hollis PA-C LAB BLOOD ORDERABLES Performing Organization Address [facility] Co de Phone Number [address] [address], [place] [address] * (ABNORMAL) Complete Blood Count, WITHOUT Differential (routine) (11/11/2024 2:00 AM EST) [facility] White Blood Cell Count 13.2(H) 4.0 - 11.0 Thou/uL 11/11/2024 2:57 AM [facility] Platelet Count 460(H) 150 - 450 Thou/uL 11/11/2024 2:57 AM [facility] Hemoglobin 8.2(L) 13.0 - 17.7 g/dL 11/11/2024 2:57 AM [facility] Hematocrit 26.1(L) 39.0 - 54.0 % 11/11/2024 2:57 AM [facility] Red Blood Cell Count 2.91(L) 4.50 - 6.20 Mil/uL 11/11/2024 2:57 AM [facility] MCV 90 80 - 100 fL 11/11/2024 2:57 AM [facility] MCH 28.2 27.0 - 31.0 pg 11/11/2024 2:57 AM [facility] MCHC 31.4 30.0 - 36.0 g/dL 11/11/2024 2:57 AM [facility] RDW 17.0(H) 11.5 - 14.5 % 11/11/2024 2:57 AM [facility] MPV 9.8 7.5 - 12.5 fL 11/11/2024 2:57 AM [facility] Blood Blood specimen / Unknown 11/11/2024 2:00 AM EST 11/11/2024 2:53 AM EST Nani Hollis PA-C LAB BLOOD ORDERABLES [address] [address], [place] [address] * (ABNORMAL) Phosphorus (11/11/2024 2:00 AM EST) Pathologist [facility] Phosphorus 4.7(H) 2.7 - 4.5 mg/dL 11/11/2024 3:18 AM [facility] Blood (Plasma/Serum) 11/11/2024 2:00 AM EST 11/11/2024 2:53 AM EST Nani Hollis PA-C LAB BLOOD ORDERABLES Performing Organization Address City/[facility]/[place] [address], [place] [address] * Magnesium (11/11/2024 2:00 AM EST) Magnesium 2.0 1.6 - 2.7 mg/dL 11/11/2024 3:18 AM [facility] Blood (Plasma/Serum) 11/11/2024 2:00 AM EST 11/11/2024 2:53 AM EST Nani Hollis PA-C LAB BLOOD ORDERABLES Performing Organization Address [facility] [place] [address], [place] [address] * (ABNORMAL) Basic Metabolic Panel (11/11/2024 2:00 AM EST) Glucose 151(H) 65 - 99 mg/dL 11/11/2024 3:18 AM [facility] Comment:Fasting: <100 mg/dL, Non-Fasting: <200 mg/dL (ADA 2004) Blood Urea Nitrogen (BUN) 56(H) 8 - 21 mg/dL 11/11/2024 3:18 AM [facility] Creatinine 2.0(H) 0.5 - 1.3 mg/dL 11/11/2024 3:18 AM [facility] eGFR 37(L) >59 11/11/2024 3:18 AM [facility] Comment:CKD-EPI (2020) in mL /min/1.73 sq meters. Sodium 137 136 - 145 mmol/L 11/11/2024 3:18 AM [facility] Potassium 3.8 3.4 - 5.3 mmol/L 11/11/2024 3:18 AM [facility] Chloride 99 98 - 107 mmol/L 11/11/2024 3:18 AM [facility] CO2 27 22 - 33 mmol/L 11/11/2024 3:18 AM [facility] Anion Gap 11 7 - 17 11/11/2024 3:18 AM [facility] Calcium 8.7 8.7 - 10.5 mg/dL 11/11/2024 3:18 AM [facility] BUN/Creatinine Ratio 28(H) 10.0 - 25.0 Ratio 11/11/2024 3:18 AM [facility] Blood (Plasma/Serum) 11/11/2024 2:00 AM EST 11/11/2024 2:53 AM EST Nani Hollis PA-C LAB BLOOD ORDERABLES Performing Organization Address City/State/[facility] [place] [address], [place] [address] * (ABNORMAL) Hepatic Function Panel (Routine) (11/11/2024 2:00 AM EST) Alkaline Phosphatase 207(H) 45 - 128 U/L 11/11/2024 3:18 AM [facility] Aspartate Aminotrans (AST) 24 10 - 55 U/L 11/11/2024 3:18 AM [facility] Alanine Aminotrans (ALT) 14 10 - 55 U/L 11/11/2024 3:18 AM [facility] Bilirubin, Total 0.2 0.2 - 1.0 mg/dL 11/11/2024 3:18 AM [facility] Protein, Total 6.4 6.3 - 8.3 g/dL 11/11/2024 3:18 AM [facility] Albumin 2.6(L) 3.4 - 4.8 g/dL 11/11/2024 3:18 AM [facility] Bilirubin, Direct 0.1 0 - 0.2 mg/dL 11/11/2024 3:18 AM [facility] Globulin 3.8 1.5 - 3.9 g/dL 11/11/2024 3:18 AM [facility] Albumin/Globulin Ratio 0.7(L) 1.0 - 3.0 Ratio 11/11/2024 3:18 AM EST [facility] Blood (Plasma/Serum) 11/11/2024 2:00 AM EST 11/11/2024 2:53 AM EST Nani Hollis PA-C LAB BLOOD ORDERABLES Performing Organization Address [facility] [place] [address], [place] [address] * Creatine Kinase (CK) (11/11/2024 2:00 AM EST) Creatine Kinase (CK) 37 24 - 204 U/L 11/11/2024 3:18 AM EST [facility] Blood (Plasma/Serum) 11/11/2024 2:00 AM EST 11/11/2024 2:53 AM EST Nani Hollis PA-C LAB BLOOD ORDERABLES Performing Organization Address [facility] [place] [address], [place] [address] * (ABNORMAL) POCT Glucose, Fingerstick (11/10/2024 7:55 PM EST) POC Glucose 229(H) 65 - 99 mg/dL 11/10/2024 7:56 PM EST Blood specimen / Unknown 11/10/2024 7:55 PM EST 11/10/2024 7:56 PM EST Dallas Camejo MD POINT OF CARE TEST O RDERABLES Performing Organization Address City/[facility] Co de Phone Number HOSPITAL LAB See Below * XR Chest 1 view-Portable (11/10/2024 6:13 PM EST) Anatomical Region Laterality Modality Chest Computed Radiogr aphy 11/10/2024 4:52 PM EST Impressions 11/11/2024 12:06 PM EST No significant change from prior study Narrative 11/11/2024 12:06 PM EST EXAMINATION: XR CHEST CLINICAL INFORMATION: Pulmonary edema. COMPARISON: XR Chest 11/08/2024 TECHNIQUE: Frontal view of the chest was obtained. FINDINGS: Sclerotic size is unchanged. Right central IJ venous catheter and pacer are unchanged. Grossly unchanged hazy opacities predominantly in the bilateral upper lungs Procedure Note Suleman Vogt MD - 11/11/2024 EXAMINATION: XR CHEST CLINICAL INFORMATION: Pulmonary edema. COMPARISON: XR Chest 11/08/2024 TECHNIQUE: Frontal view of the chest was obtained. FINDINGS: Sclerotic size is unchanged. Right central IJ venous catheter and pacer are unchanged. Grossly unchanged hazy opacities predominantly in the bilateral upper lungs IMPRESSION: No significant change from prior study Nani Hollis PA-C IMG DIAGNOSTIC IMAGI NG ORDERABLES * (ABNORMAL) POCT Glucose, Fingerstick (11/10/2024 4:01 PM EST) POC Glucose 230(H) 65 - 99 mg/dL 11/10/2024 4:04 PM EST Blood specimen / Unknown 11/10/2024 4:01 PM EST 11/10/2024 4:04 PM EST Dallas Camejo MD POINT OF CARE TEST O RDERABLES HOSPITAL LAB See Below * (ABNORMAL) Phosphorus (11/10/2024 12:03 PM EST) Phosphorus 5.2(H) 2.7 - 4.5 mg/dL 11/10/2024 1:06 PM EST [facility] Blood (Plasma/Serum) 11/10/2024 12:03 PM EST 11/10/2024 12:27 PM EST Nani Hollis PA-C LAB BLOOD ORDERABLES [address] [address], [address] [address] * Magnesium (11/10/2024 12:03 PM EST) Magnesium 2.0 1.6 - 2.7 mg/dL 11/10/2024 1:06 PM [facility] Blood (Plasma/Serum) 11/10/2024 12:03 PM EST 11/10/2024 12:27 PM EST Nani Hollis PA-C LAB BLOOD ORDERABLES [address] [address], [address] [address] * (ABNORMAL) Basic Metabolic Panel (11/10/2024 12:03 PM EST) Glucose 135(H) 65 - 99 mg/dL 11/10/2024 1:06 PM [facility] Comment:Fasting: <100 mg/dL, Non-Fasting: <200 mg/dL (ADA 2004) Blood Urea Nitrogen (BUN) 57(H) 8 - 21 mg/dL 11/10/2024 1:06 PM [facility] Creatinine 1.9(H) 0.5 - 1.3 mg/dL 11/10/2024 1:06 PM [facility] eGFR 39(L) >59 11/10/2024 1:06 PM [facility] Comment:CKD-EPI (2020) in mL /min/1.73 sq meters. Sodium 137 136 - 145 mmol/L 11/10/2024 1:06 PM [facility] Potassium 3.8 3.4 - 5.3 mmol/L 11/10/2024 1:06 PM [facility] Chloride 101 98 - 107 mmol/L 11/10/2024 1:06 PM [facility] CO2 25 22 - 33 mmol/L 11/10/2024 1:06 PM [facility] Anion Gap 11 7 - 17 11/10/2024 1:06 PM [facility] Calcium 8.5(L) 8.7 - 10.5 mg/dL 11/10/2024 1:06 PM [facility] BUN/Creatinine Ratio 30(H) 10.0 - 25.0 Ratio 11/10/2024 1:06 PM [facility] Blood (Plasma/Serum) 11/10/2024 12:03 PM EST 11/10/2024 12:27 PM EST Nani Hollis PA-C LAB BLOOD ORDERABLES Performing Organization Address City/State/[facility] Co de Phone Number [address] [address], [address] [address] * (ABNORMAL) POCT Glucose, Fingerstick (11/10/2024 11:36 AM EST) POC Glucose 143(H) 65 - 99 mg/dL 11/10/2024 11:36 AM EST Blood specimen / Unknown 11/10/2024 11:36 AM EST 11/10/2024 11:37 AM EST Dallas Camejo MD POINT OF CARE TEST O RDERALUCILLE Performing Organization Address [facility] Co ks Phone Number [facility] LAB See Below * (ABNORMAL) POCT Glucose, Fingerstick (11/10/2024 7:42 AM EST) POC Glucose 134(H) 65 - 99 mg/dL 11/10/2024 7:43 AM EST Blood specimen / Unknown 11/10/2024 7:42 AM EST 11/10/2024 7:43 AM EST Dallas Camejo MD POINT OF CARE TEST O RDERALUCILLE Performing Organization Address City/[facility] Co de Phone Number [facility] LAB See Below * (ABNORMAL) POCT Glucose, Fingerstick (11/10/2024 2:02 AM EST) POC Glucose 126(H) 65 - 99 mg/dL 11/10/2024 2:03 AM EST Blood specimen / Unknown 11/10/2024 2:02 AM EST 11/10/2024 2:03 AM EST Dallas Camejo MD POINT OF CARE TEST O RDERALUCILLE Performing Organization Address City/[facility]/ZIP Co de Phone Number [facility] LAB See Below * (ABNORMAL) Phosphorus (11/10/2024 12:04 AM EST) Phosphorus 5.6(H) 2.7 - 4.5 mg/dL 11/10/2024 1:09 AM [facility] Blood (Plasma/Serum) 11/10/2024 12:04 AM EST 11/10/2024 12:33 AM EST Claire Garibay PA-C [place] [address], [place] [address] * Magnesium (11/10/2024 12:04 AM EST) Magnesium 2.1 1.6 - 2.7 mg/dL 11/10/2024 1:09 AM [facility] Blood (Plasma/Serum) 11/10/2024 12:04 AM EST 11/10/2024 12:33 AM EST Claire Garibay PA-C [place] [address], [place] [address] * (ABNORMAL) Basic Metabolic Panel (11/10/2024 12:04 AM EST) Glucose 122(H) 65 - 99 mg/dL 11/10/2024 1:09 AM [facility] Comment:Fasting: <100 mg/dL, Non-Fasting: <200 mg/dL (ADA 2004) Blood Urea Nitrogen (BUN) 56(H) 8 - 21 mg/dL 11/10/2024 1:09 AM [facility] Creatinine 2.0(H) 0.5 - 1.3 mg/dL 11/10/2024 1:09 AM [facility] eGFR 37(L) >59 11/10/2024 1:09 AM [facility] Comment:CKD-EPI (2020) in mL /min/1.73 sq meters. Sodium 135(L) 136 - 145 mmol/L 11/10/2024 1:09 AM [facility] Potassium 3.8 3.4 - 5.3 mmol/L 11/10/2024 1:09 AM [facility] Chloride 100 98 - 107 mmol/L 11/10/2024 1:09 AM [facility] CO2 24 22 - 33 mmol/L 11/10/2024 1:09 AM [facility] Anion Gap 11 7 - 17 11/10/2024 1:09 AM [facility] Calcium 8.2(L) 8.7 - 10.5 mg/dL 11/10/2024 1:09 AM [facility] BUN/Creatinine Ratio 28(H) 10.0 - 25.0 Ratio 11/10/2024 1:09 AM [facility] Blood (Plasma/Serum) 11/10/2024 12:04 AM EST 11/10/2024 12:33 AM [facility] Claire Garibay PA-C [place] [address], [place] [address] * (ABNORMAL) COMPLETE BLOOD COUNT, WITHOUT DIFFERENTIAL (11/10/2024 12:04 AM [facility]) White Blood Cell Count 13.5(H) 4.0 - 11.0 Thou/uL 11/10/2024 12:47 AM [facility] Platelet Count 445 150 - 450 Thou/uL 11/10/2024 12:47 AM [facility] Hemoglobin 7.6(L) 13.0 - 17.7 g/dL 11/10/2024 12:47 AM [facility] Hematocrit 25.2(L) 39.0 - 54.0 % 11/10/2024 12:47 AM [facility] Red Blood Cell Count 2.75(L) 4.50 - 6.20 Mil/uL 11/10/2024 12:47 AM [facility] MCV 92 80 - 100 fL 11/10/2024 12:47 AM [facility] MCH 27.6 27.0 - 31.0 pg 11/10/2024 12:47 AM [facility] MCHC 30.2 30.0 - 36.0 g/dL 11/10/2024 12:47 AM [facility] RDW 17.2(H) 11.5 - 14.5 % 11/10/2024 12:47 AM [facility] MPV 9.7 7.5 - 12.5 fL 11/10/2024 12:47 AM [facility] Blood Blood specimen / Unknown 11/10/2024 12:04 AM EST 11/10/2024 12:33 AM EST Claire Garibay PA-C [place] [address], [place] [address] * (ABNORMAL) POCT Glucose, Fingerstick (11/09/2024 8:03 PM EST) POC Glucose 152(H) 65 - 99 mg/dL 11/09/2024 8:04 PM EST Blood specimen / Unknown 11/09/2024 8:03 PM EST 11/09/2024 8:04 PM EST Dallas Camejo MD POINT OF CARE TEST O RDERABLES HOSPITAL LAB See Below * (ABNORMAL) POCT Glucose, Fingerstick (11/09/2024 3:53 PM EST) POC Glucose 222(H) 65 - 99 mg/dL 11/09/2024 8:04 PM EST Blood specimen / Unknown 11/09/2024 3:53 PM EST 11/09/2024 8:04 PM EST Dallas Camejo MD POINT OF CARE TEST O RDERABLES HOSPITAL LAB See Below * (ABNORMAL) POCT Glucose, Fingerstick (11/09/2024 11:47 AM EST) POC Glucose 146(H) 65 - 99 mg/dL 11/09/2024 11:53 AM EST Blood specimen / Unknown 11/09/2024 11:47 AM EST 11/09/2024 11:53 AM EST Dallas Camejo MD POINT OF CARE TEST O RDERABLES HOSPITAL LAB See Below * (ABNORMAL) proBNP, N-terminal (11/09/2024 10:04 AM EST) Pathologist [facility] proBNP, N-terminal 4,654(H) <125 pg/mL 11/09/2024 12:58 PM EST [facility] Plasma specimen / Unknown 11/09/2024 10:04 AM EST 11/09/2024 10:25 AM EST Claire Garibay PA-C LAB BLOOD ORDERABLES Performing Organization Address [facility] [place] [address], [place] [address] * (ABNORMAL) Procalcitonin (11/09/2024 10:04 AM EST) Pathologist [facility] Procalcitonin 0.40(H) <0.09 ng/mL 11/09/2024 11:01 AM EST [facility] Comment: (NOTE) ?Procalcitonin (PCT) Guided Antibiotic ? Management for Respiratory Infection ? Initial PCT interpretation: < 0.09 ng/mL: ? Antibiotics NOT likely needed ? (bacterial etiology very unlikely). 0.09 - 0.25 ng/mL: ??Antibiotics are NOT likely needed unless clinical ? concern for infection ? (bacterial etiology unlikely). 0.26 - 0.5 ng/mL: ?? Antibiotics likely needed ? (bacterial etiology likely). ? Repeat PCT after 3-5 days. > 0.5 ng/mL: ?Antibiotics likely needed ? (bacterial etiology very likely). ? Repeat PCT after 3-5 days. Repeat PCT interpretation: Initial PCT < 5 ng/mL: Consider stopping antibiotics ?when PCT < 0.25 ng/mL. Initial PCT > 5 ng/mL: Consider stopping antibiotics when 80% ?reduction in PCT from initial value or ?PCT < 0.25 ng/mL. The above interpretative values are not appropriate for non-respiratory infectious diagnostics Blood (Plasma/Serum) 11/09/2024 10:04 AM EST 11/09/2024 10:25 AM EST Claire Garibay PA-C LAB BLOOD ORDERABLES Performing Organization Address City/State/[facility] [place] [address], [place] [address] * (ABNORMAL) POCT Glucose, Fingerstick (11/09/2024 7:29 AM EST) [facility] POC Glucose 153(H) 65 - 99 mg/dL 11/09/2024 7:33 AM EST Blood specimen / Unknown 11/09/2024 7:29 AM EST 11/09/2024 7:33 AM EST Dallas Camejo MD POINT OF CARE TEST O RDERABLES HOSPITAL LAB See Below * (ABNORMAL) Phosphorus (11/09/2024 1:50 AM EST) [facility] Phosphorus 5.2(H) 2.7 - 4.5 mg/dL 11/09/2024 2:56 AM EST [facility] Blood (Plasma/Serum) 11/09/2024 1:50 AM EST 11/09/2024 2:31 AM EST Shay Martin MD LAB BLOOD ORDERAB LES Performing Organization Address [facility]/[place] [address], [place] [address] * Magnesium (11/09/2024 1:50 AM EST) [facility] Magnesium 2.3 1.6 - 2.7 mg/dL 11/09/2024 2:56 AM EST [facility] Blood (Plasma/Serum) 11/09/2024 1:50 AM EST 11/09/2024 2:31 AM EST Shay Martin MD LAB BLOOD ORDERAB LES Performing Organization Address City/[facility] [place] [address], [place] [address] * (ABNORMAL) COMPLETE BLOOD COUNT, WITHOUT DIFFERENTIAL (11/09/2024 1:50 AM EST) [facility] White Blood Cell Count 11.9(H) 4.0 - 11.0 Thou/uL 11/09/2024 2:36 AM [facility] Platelet Count 405 150 - 450 Thou/uL 11/09/2024 2:36 AM [facility] Hemoglobin 7.7(L) 13.0 - 17.7 g/dL 11/09/2024 2:36 AM [facility] Hematocrit 24.9(L) 39.0 - 54.0 % 11/09/2024 2:36 AM [facility] Red Blood Cell Count 2.72(L) 4.50 - 6.20 Mil/uL 11/09/2024 2:36 AM [facility] MCV 92 80 - 100 fL 11/09/2024 2:36 AM [facility] MCH 28.3 27.0 - 31.0 pg 11/09/2024 2:36 AM [facility] MCHC 30.9 30.0 - 36.0 g/dL 11/09/2024 2:36 AM [facility] RDW 17.1(H) 11.5 - 14.5 % 11/09/2024 2:36 AM [facility] MPV 9.6 7.5 - 12.5 fL 11/09/2024 2:36 AM [facility] Blood Blood specimen / Unknown 11/09/2024 1:50 AM EST 11/09/2024 2:31 AM EST Shay Martin MD [place] [address], [place] [address] * (ABNORMAL) Basic Metabolic Panel (11/09/2024 1:50 AM EST) Glucose 117(H) 65 - 99 mg/dL 11/09/2024 2:56 AM [facility] Comment:Fasting: <100 mg/dL, Non-Fasting: <200 mg/dL (ADA 2005) Blood Urea Nitrogen (BUN) 46(H) 8 - 21 mg/dL 11/09/2024 2:56 AM [facility] Creatinine 1.8(H) 0.5 - 1.3 mg/dL 11/09/2024 2:56 AM [facility] eGFR 42(L) >59 11/09/2024 2:56 AM [facility] Comment:CKD-EPI (2020) in mL /min/1.73 sq meters. Sodium 139 136 - 145 mmol/L 11/09/2024 2:56 AM [facility] Potassium 3.6 3.4 - 5.3 mmol/L 11/09/2024 2:56 AM [facility] Chloride 101 98 - 107 mmol/L 11/09/2024 2:56 AM [facility] CO2 25 22 - 33 mmol/L 11/09/2024 2:56 AM [facility] Anion Gap 13 7 - 17 11/09/2024 2:56 AM [facility] Calcium 8.2(L) 8.7 - 10.5 mg/dL 11/09/2024 2:56 AM [facility] BUN/Creatinine Ratio 26(H) 10.0 - 25.0 Ratio 11/09/2024 2:56 AM [facility] Blood (Plasma/Serum) 11/09/2024 1:50 AM EST 11/09/2024 2:31 AM EST Shay Martin MD [place] [address], [place] [address] * (ABNORMAL) POCT Glucose, Fingerstick (11/09/2024 1:41 AM EST) POC Glucose 124(H) 65 - 99 mg/dL 11/09/2024 1:42 AM EST Blood specimen / Unknown 11/09/2024 1:41 AM EST 11/09/2024 1:42 AM EST Dallas Camejo MD POINT OF CARE TEST O RDERABLES HOSPITAL LAB See Below * (ABNORMAL) POCT Glucose, Fingerstick (11/08/2024 8:45 PM EST) POC Glucose 164(H) 65 - 99 mg/dL 11/08/2024 8:49 PM EST Blood specimen / Unknown 11/08/2024 8:45 PM EST 11/08/2024 8:49 PM EST Dallas Camejo MD POINT OF CARE TEST O JOSEPH Performing Organization Address [facility] Co de Phone Number [facility] LAB See Below * (ABNORMAL) POCT Glucose, Fingerstick (11/08/2024 7:58 PM EST) POC Glucose 212(H) 65 - 99 mg/dL 11/08/2024 8:49 PM EST Blood specimen / Unknown 11/08/2024 7:58 PM EST 11/08/2024 8:49 PM EST Dallas Camejo MD POINT OF CARE TEST O JOSEPH Performing Organization Address [facility] Phone Number [facility] LAB See Below * INSJ NON-TUNNELED CENTRAL VENOUS CATH AGE 5 YR/> (11/08/2024 6:31 PM EST) Narrative Darrell Carcamo PA-C - 11/08/2024 6:31 PM EST Darrell Carcamo PA-C ? 11/08/2024 ??6:34 PM Central Line Insertion Date/Time: 11/08/2024 6:31 PM Performed by: Darrell Carcamo PA-C Authorized by: Darrell Carcamo PA-C ??Consent: Written consent obtained. Consent given by: patient Patient understanding: patient states understanding of the procedure being performed Patient consent: the patient's understanding of the procedure matches consent given Relevant documents: relevant documents present and verified Patient identity confirmed: arm band Time out: Immediately prior to procedure a time out was called to verify the correct patient, procedure, equipment, system support developer and site/side marked as required. Indications: vascular access Anesthesia: local infiltration Anesthesia: Local Anesthetic: lidocaine 1% without epinephrine Sedation: Patient sedated: yes Sedation type: moderate (conscious) sedation Sedatives: midazolam Vitals: Vital signs were monitored during sedation. Preparation: skin prepped with 2% chlorhexidine Skin prep agent dried: skin prep agent completely dried prior to procedure Sterile barriers: all five maximum sterile barriers used - cap, mask, sterile gown, sterile gloves, and large sterile sheet Hand hygiene: hand hygiene performed prior to central venous catheter insertion Location details: right internal jugular Patient position: Trendelenburg Catheter size: 7.5 Fr Pre-procedure: landmarks identified Ultrasound guidance: yes Sterile ultrasound techniques: sterile gel and sterile probe covers were used Number of attempts: 2 Successful placement: yes Post-procedure: line sutured and dressing applied Assessment: blood return through all ports, placement verified by x-ray and no pneumothorax on x-ray Patient tolerance: patient tolerated the procedure well with no immediate complications Comments: Precepted by Eunice Garrison APRN Darrell Carcamo PA-C PROCEDURE/MINOR AZEVEDO RGICAL ORDERABLES * Blood Gas, Venous (11/08/2024 5:46 PM EST) Venous Blood PH 7.35 7.33 - 7.43 11/08/2024 6:00 PM [facility] Venous pCO2 49 35 - 50 mmHG 11/08/2024 6:00 PM [facility] Venous pO2 45 0 - 60 mmHG 11/08/2024 6:00 PM [facility] Venous Total CO2 28 23 - 29 mmol/L 11/08/2024 6:00 PM [facility] Respiratory Info NASAL 6 L/MIN 11/08/2024 5:29 PM EST Base Excess 0.9 mmol/L 11/08/2024 6:00 PM [facility] Comment:Reference Range: Neg ative 2 to Positive 3 Blood Blood specimen / Unknown 11/08/2024 5:46 PM EST 11/08/2024 5:55 PM EST Eunice Garrison APRN [place] [address], [place] [address] * (ABNORMAL) Phosphorus (Routine) (11/08/2024 5:46 PM EST) Phosphorus 4.9(H) 2.7 - 4.5 mg/dL 11/08/2024 7:23 PM [facility] Blood (Plasma/Serum) 11/08/2024 5:46 PM EST 11/08/2024 6:51 PM EST [facility] [place] [address], [place] [address] * Magnesium (Routine) (11/08/2024 5:46 PM EST) Magnesium 1.9 1.6 - 2.7 mg/dL 11/08/2024 7:23 PM [facility] Blood (Plasma/Serum) 11/08/2024 5:46 PM EST 11/08/2024 6:51 PM EST [facility] [place] [address], [place] [address] * (ABNORMAL) Basic Metabolic Panel (Routine) (11/08/2024 5:46 PM EST) Glucose 134(H) 65 - 99 mg/dL 11/08/2024 7:23 PM [facility] Comment:Fasting: <100 mg/dL, Non-Fasting: <200 mg/dL (ADA 2005) Blood Urea Nitrogen (BUN) 45(H) 8 - 21 mg/dL 11/08/2024 7:23 PM [facility] Creatinine 1.7(H) 0.5 - 1.3 mg/dL 11/08/2024 7:23 PM [facility] eGFR 45(L) >59 11/08/2024 7:23 PM [facility] Comment:CKD-EPI (2020) in mL /min/1.73 sq meters. Sodium 141 136 - 145 mmol/L 11/08/2024 7:23 PM [facility] Potassium 3.3(L) 3.4 - 5.3 mmol/L 11/08/2024 7:23 PM [facility] Chloride 102 98 - 107 mmol/L 11/08/2024 7:23 PM [facility] CO2 26 22 - 33 mmol/L 11/08/2024 7:23 PM [facility] Anion Gap 13 7 - 17 11/08/2024 7:23 PM [facility] Calcium 8.6(L) 8.7 - 10.5 mg/dL 11/08/2024 7:23 PM [facility] BUN/Creatinine Ratio 26(H) 10.0 - 25.0 Ratio 11/08/2024 7:23 PM [facility] Blood (Plasma/Serum) 11/08/2024 5:46 PM EST 11/08/2024 6:51 PM EST Eunice Dedrakailey ASSOCIATE THEATRE PROFESSOR LAB BLOOD ORDERA BLES Performing Organization Address City/State/[facility] [place] [address], [place] [address] * XR Chest 1 view-Portable (STAT) (11/08/2024 5:34 PM EST) Anatomical Region Laterality Modality Chest Computed Radiogr aphy 11/08/2024 5:07 PM EST Impressions 11/08/2024 8:15 PM EST 1. ??Right internal jugular central venous catheter tip overlying the cavoatrial junction. 2. ??Hazy opacities in the bilateral lungs, most pronounced in the upper lung ta bilaterally. Attending note: Interval worsening of bilateral upper lung field airspace opacities as compared to the prior study. Interpreted by: ??Bashir Barrientos MD Erosion Control Specialist I personally reviewed the images and the resident's preliminary report and AGREE with the report as it is now presented ([id number]). Narrative 11/08/2024 8:15 PM EST EXAMINATION: XR CHEST 1 VIEW PORTABLE CLINICAL INFORMATION: RIJ TLC placement COMPARISON: Chest radiograph 11/07/2024 TECHNIQUE: AP view of the chest was obtained. FINDINGS: Right internal jugular central venous catheter with the tip overlying the cavoatrial junction. Pacemaker overlying left chest wall with leads overlying the right atrium and right ventricle. EKG leads overlying the patient. The lungs are adequately expanded. Hazy opacities in the bilateral lungs, most pronounced in the upper lung ta. No pleural effusion. No edema. No pneumothorax. The cardiomediastinal silhouette is unchanged compared to prior. No acute osseous abnormality. Procedure Note Дмитрий Faith MD - 11/08/2024 EXAMINATION: XR CHEST 1 VIEW PORTABLE CLINICAL INFORMATION: RIJ TLC placement COMPARISON: Chest radiograph 11/07/2024 TECHNIQUE: AP view of the chest was obtained. FINDINGS: Right internal jugular central venous catheter with the tip overlying the cavoatrial junction. Pacemaker overlying left chest wall with leads overlying the right atrium and right ventricle. EKG leads overlying the patient. The lungs are adequately expanded. Hazy opacities in the bilateral lungs, most pronounced in the upper lung ta. No pleural effusion. No edema. No pneumothorax. The cardiomediastinal silhouette is unchanged compared to prior. No acute osseous abnormality. IMPRESSION: 1. Right internal jugular central venous catheter tip overlying the cavoatrial junction. 2. Hazy opacities in the bilateral lungs, most pronounced in the upper lung ta bilaterally. Attending note: Interval worsening of bilateral upper lung field airspace opacities as compared to the prior study. Interpreted by: Bashir Barrientos MD [employer] I personally reviewed the images and the resident's preliminary report and AGREE with the report as it is now presented ([email or web address]). Eunice Garrison APRN IMG DIAGNOSTIC I MAGING ORDERABLES * (ABNORMAL) POCT Glucose, Fingerstick (11/08/2024 5:34 PM EST) POC Glucose 170(H) 65 - 99 mg/dL 11/08/2024 7:52 PM EST Blood specimen / Unknown 11/08/2024 5:34 PM EST 11/08/2024 7:52 PM EST Dallas Camejo MD POINT OF CARE TEST O [facility] See Below * (ABNORMAL) POCT Glucose, Fingerstick (11/08/2024 11:28 AM EST) POC Glucose 162(H) 65 - 99 mg/dL 11/08/2024 11:29 AM EST Blood specimen / Unknown 11/08/2024 11:28 AM EST 11/08/2024 11:29 AM EST Dallas Camejo MD POINT OF CARE TEST O JOSEPH Performing Organization Address [facility] Phone Number HOSPITAL LAB See Below * (ABNORMAL) POCT Glucose, Fingerstick (11/08/2024 7:46 AM EST) POC Glucose 198(H) 65 - 99 mg/dL 11/08/2024 7:55 AM EST Blood specimen / Unknown 11/08/2024 7:46 AM EST 11/08/2024 7:54 AM EST Dallas Camejo MD POINT OF CARE TEST O JOSEPH Performing Organization Address [facility] Number [facility] LAB See Below * CT Head w w/o contrast (11/08/2024 3:10 AM EST) Anatomical Region Laterality Modality Head Computed Tomogra phy 11/07/2024 10:2 9 PM EST Impressions 11/08/2024 9:43 AM EST 1. No acute intracranial process or abnormal intracranial enhancement. If there is a high clinical index of suspicion for acute embolic infarction, and it would alter patient management, consider MR brain, if possible. 2. Mild microvascular white matter ischemic changes. This CT examination was performed using dose optimization techniques as appropriate, variously including the following: * ??Automated exposure control * ??Adjustment of mA and/or kV according to patient size (this includes techniques or standardized protocols for targeted exams where dose is matched to indication/reason for exam; i.e. extremities or head) * ??Use of iterative reconstruction technique Narrative 11/08/2024 9:43 AM EST DATE: 11/07/2024 EXAM: CT HEAD WITHOUT THEN WITH IV CONTRAST CLINICAL STATEMENT: 63-year-old male, Assess for septic emboli in the setting of high suspicion for endocarditis and bacteremia COMPARISON: CT head 11/07/2024, 05/01/2020. TECHNIQUE: Multiple contiguous axial images from the skull base to the vertex were obtained prior to and following the intravenous administration of 80 mL of Omnipaque 350. Coronal and sagittal reformats provided.. FINDINGS: ?? Beam hardening and streak artifact from dental hardware precludes complete evaluation of the adjacent structures. There are no abnormal intra- or extra-axial fluid collections, acute hemorrhage, midline shift, or mass effect. Manrique-white differentiation is normal. Global cortical involutional changes are present that are advanced for the patient's stated age. The ventricular system is mildly enlarged but commensurate with the degree of sulcal prominence. Periventricular and supraventricular white matter hypodensity is present that nonspecific in appearance, but most likely to represent microvascular ischemic changes. Atherosclerotic vascular calcification is present within the carotid siphons and distal vertebral arteries. No abnormal postcontrast enhancement. The paranasal sinuses, mastoid air cells, and tympanic spaces are clear. Procedure Note Filippo Lopez MD - 11/08/2024 DATE: 11/07/2024 EXAM: CT HEAD WITHOUT THEN WITH IV CONTRAST CLINICAL STATEMENT: 63-year-old male, Assess for septic emboli in the setting of high suspicion for endocarditis and bacteremia COMPARISON: CT head 11/07/2024, 05/01/2020. TECHNIQUE: Multiple contiguous axial images from the skull base to the vertex were obtained prior to and following the intravenous administration of 80 mL of Omnipaque 350. Coronal and sagittal reformats provided.. FINDINGS: Beam hardening and streak artifact from dental hardware precludes complete evaluation of the adjacent structures. There are no abnormal intra- or extra-axial fluid collections, acute hemorrhage, midline shift, or mass effect. Manrique-white differentiation is normal. Global cortical involutional changes are present that are advanced for the patient's stated age. The ventricular system is mildly enlarged but commensurate with the degree of sulcal prominence. Periventricular and supraventricular white matter hypodensity is present that nonspecific in appearance, but most likely to represent microvascular ischemic changes. Atherosclerotic vascular calcification is present within the carotid siphons and distal vertebral arteries. No abnormal postcontrast enhancement. The paranasal sinuses, mastoid air cells, and tympanic spaces are clear. IMPRESSION: 1. No acute intracranial process or abnormal intracranial enhancement. If there is a high clinical index of suspicion for acute embolic infarction, and it would alter patient management, consider MR brain, if possible. 2. Mild microvascular white matter ischemic changes. This CT examination was performed using dose optimization techniques as appropriate, variously including the following: * Automated exposure control * Adjustment of mA and/or kV according to patient size (this includes techniques or standardized protocols for targeted exams where dose is matched to indication/reason for exam; i.e. extremities or head) * Use of iterative reconstruction technique Kayla Orona APRN [facility] CT ORDERABLES * (ABNORMAL) POCT Glucose, Fingerstick (11/08/2024 2:03 AM EST) POC Glucose 209(H) 65 - 99 mg/dL 11/08/2024 2:59 AM EST Blood specimen / Unknown 11/08/2024 2:03 AM EST 11/08/2024 2:59 AM EST Dallas Camejo MD POINT OF CARE TEST [facility] See Below * (ABNORMAL) High Sensitivity Troponin T (Once) (11/08/2024 12:05 AM EST) Pathologist [facility] High Sensitivity Troponin T 26(H) <23 ng/L 11/08/2024 12:39 AM EST [facility] Delta (Change) NO CHANGE <3 11/08/2024 12:39 AM EST [facility] Blood (Plasma/Serum) 11/08/2024 12:05 AM EST 11/08/2024 12:16 AM EST Kayla Orona ASSOCIATE THEATRE PROFESSOR LAB BLOOD ORDERABLES Performing Organization Address City/[facility]/[place] [address], [address] [address] * Creatine Kinase (CK) (11/08/2024 12:05 AM EST) Creatine Kinase (CK) 91 24 - 204 U/L 11/08/2024 12:39 AM [facility] Blood (Plasma/Serum) 11/08/2024 12:05 AM EST 11/08/2024 12:16 AM EST Kayla Orona ASSOCIATE THEATRE PROFESSOR LAB BLOOD ORDERABLES Performing Organization Address City/[facility]/[place] [address], [place] [address] * (ABNORMAL) proBNP, N-terminal (11/08/2024 12:05 AM EST) proBNP, N-terminal 4,241(H) <125 pg/mL 11/08/2024 12:39 AM [facility] Blood Plasma specimen / Unknown 11/08/2024 12:05 AM EST 11/08/2024 12:16 AM EST Kayla Orona ASSOCIATE THEATRE PROFESSOR LAB BLOOD ORDERABLES Performing Organization Address City/[facility]/ZIP Co de Phone Number [address] [address], [address] [address] * (ABNORMAL) HEPATIC FUNCTION PANEL (11/08/2024 12:05 AM EST) Alkaline Phosphatase 226(H) 45 - 128 U/L 11/08/2024 12:39 AM [facility] Aspartate Aminotrans (AST) 24 10 - 55 U/L 11/08/2024 12:39 AM [facility] Alanine Aminotrans (ALT) 24 10 - 55 U/L 11/08/2024 12:39 AM [facility] Bilirubin, Total <0.2(L) 0.2 - 1.0 mg/dL 11/08/2024 12:39 AM [facility] Protein, Total 5.5(L) 6.3 - 8.3 g/dL 11/08/2024 12:39 AM [facility] Albumin 2.3(L) 3.4 - 4.8 g/dL 11/08/2024 12:39 AM [facility] Bilirubin, Direct 0.1 0 - 0.2 mg/dL 11/08/2024 12:39 AM [facility] Globulin 3.2 1.5 - 3.9 g/dL 11/08/2024 12:39 AM [facility] Albumin/Globulin Ratio 0.7(L) 1.0 - 3.0 Ratio 11/08/2024 12:39 AM [facility] Blood (Plasma/Serum) 11/08/2024 12:05 AM EST 11/08/2024 12:16 AM EST Kayla Orona APRN [place] [address], [place] [address] * (ABNORMAL) COMPLETE BLOOD COUNT, WITHOUT DIFFERENTIAL (11/08/2024 12:05 AM [facility]) White Blood Cell Count 13.1(H) 4.0 - 11.0 Thou/uL 11/08/2024 12:22 AM [facility] Platelet Count 378 150 - 450 Thou/uL 11/08/2024 12:22 AM [facility] Hemoglobin 7.9(L) 13.0 - 17.7 g/dL 11/08/2024 12:22 AM [facility] Hematocrit 25.6(L) 39.0 - 54.0 % 11/08/2024 12:22 AM [facility] Red Blood Cell Count 2.83(L) 4.50 - 6.20 Mil/uL 11/08/2024 12:22 AM [facility] MCV 91 80 - 100 fL 11/08/2024 12:22 AM [facility] MCH 27.9 27.0 - 31.0 pg 11/08/2024 12:22 AM [facility] MCHC 30.9 30.0 - 36.0 g/dL 11/08/2024 12:22 AM [facility] RDW 16.9(H) 11.5 - 14.5 % 11/08/2024 12:22 AM [facility] MPV 9.3 7.5 - 12.5 fL 11/08/2024 12:22 AM [facility] Blood Blood specimen / Unknown 11/08/2024 12:05 AM EST 11/08/2024 12:16 AM EST [facility] Performing Organization Address City/[facility]/[place] [address], [place] [address] * (ABNORMAL) Phosphorus (11/08/2024 12:05 AM EST) Phosphorus 5.2(H) 2.7 - 4.5 mg/dL 11/08/2024 12:39 AM [facility] Blood (Plasma/Serum) 11/08/2024 12:05 AM EST 11/08/2024 12:16 AM EST [facility] BLOOD ORDERABLES Performing Organization Address City/[facility]/[place] [address], [place] [address] * Magnesium (11/08/2024 12:05 AM EST) Magnesium 2.0 1.6 - 2.7 mg/dL 11/08/2024 12:39 AM [facility] Blood (Plasma/Serum) 11/08/2024 12:05 AM EST 11/08/2024 12:16 AM EST [facility] ASSOCIATE THEATRE PROFESSOR LAB BLOOD ORDERABLES [address] [address], [place] [address] * (ABNORMAL) Basic Metabolic Panel (11/08/2024 12:05 AM EST) Glucose 231(H) 65 - 99 mg/dL 11/08/2024 12:39 AM [facility] Comment:Fasting: <100 mg/dL, Non-Fasting: <200 mg/dL (ADA 2004) Blood Urea Nitrogen (BUN) 48(H) 8 - 21 mg/dL 11/08/2024 12:39 AM [facility] Creatinine 1.6(H) 0.5 - 1.3 mg/dL 11/08/2024 12:39 AM [facility] eGFR 48(L) >59 11/08/2024 12:39 AM [facility] Comment:CKD-EPI (2020) in mL /min/1.73 sq meters. Sodium 133(L) 136 - 145 mmol/L 11/08/2024 12:39 AM [facility] Potassium 3.8 3.4 - 5.3 mmol/L 11/08/2024 12:39 AM [facility] Chloride 98 98 - 107 mmol/L 11/08/2024 12:39 AM [facility] CO2 21(L) 22 - 33 mmol/L 11/08/2024 12:39 AM [facility] Anion Gap 14 7 - 17 11/08/2024 12:39 AM [facility] Calcium 7.9(L) 8.7 - 10.5 mg/dL 11/08/2024 12:39 AM [facility] BUN/Creatinine Ratio 30(H) 10.0 - 25.0 Ratio 11/08/2024 12:39 AM [facility] Blood (Plasma/Serum) 11/08/2024 12:05 AM EST 11/08/2024 12:16 AM EST Kayla Orona APRN LAB BLOOD ORDERABLES [address] [address], [place] [address] * (ABNORMAL) POCT Glucose, Fingerstick (11/07/2024 7:47 PM EST) POC Glucose 261(H) 65 - 99 mg/dL 11/07/2024 7:53 PM EST Blood specimen / Unknown 11/07/2024 7:47 PM EST 11/07/2024 7:53 PM EST Dallas Camejo MD POINT OF CARE TEST [facility] See Below * Respiratory PCR Panel (11/07/2024 6:30 PM EST) Pathologist [facility] Adenovirus Not Detected Not Detected 11/08/2024 12:23 AM [facility] Coronavirus 229E Not Detected Not Detected 11/08/2024 12:23 AM [facility] Coronavirus HKU1 Not Detected Not Detected 11/08/2024 12:23 AM [facility] Coronavirus NL63 Not Detected Not Detected 11/08/2024 12:23 AM [facility] Coronavirus OC43 Not Detected Not Detected 11/08/2024 12:23 AM [facility] Human Metapneumovirus Not Detected Not Detected 11/08/2024 12:23 AM [facility] Rhinovirus/Enterov irus Not Detected Not Detected 11/08/2024 12:23 AM [facility] Influenza A Not Detected Not Detected 11/08/2024 12:23 AM [facility] Influenza B Not Detected Not Detected 11/08/2024 12:23 AM [facility] Parainfluenza 1 (PIV1) Not Detected Not Detected 11/08/2024 12:23 AM [facility] Parainfluenza 2 (PIV2) Not Detected Not Detected 11/08/2024 12:23 AM [facility] Parainfluenza 3 (PIV3) Not Detected Not Detected 11/08/2024 12:23 AM [facility] Parainfluenza 4 (PIV4) Not Detected Not Detected 11/08/2024 12:23 AM [facility] Respiratory Syncytial Virus Not Detected Not Detected 11/08/2024 12:23 AM [facility] Bordetella pertussis Not Detected Not Detected 11/08/2024 12:23 AM [facility] Chlamydophila pneumoniae Not Detected Not Detected 11/08/2024 12:23 AM [facility] Mycoplasma pneumoniae Not Detected Not Detected 11/08/2024 12:23 AM [facility] Bordetella parapertussis Not Detected Not Detected 11/08/2024 12:23 AM [facility] SARS CoV 2 Not Detected Not Detected 11/08/2024 12:23 AM [facility] X-Specimen 24 Nasopharyngeal swab / Unknown 11/07/2024 6:30 PM EST 11/07/2024 8:00 PM EST Kayla Orona APRN MICROBIOLOGY - GENER AL ORDERABLES [facility] [address] [place] [address], * (ABNORMAL) High Sensitivity Troponin T (Once) (11/07/2024 4:12 PM EST) High Sensitivity Troponin T 29(H) <23 ng/L 11/07/2024 5:28 PM [facility] Delta (Change) 3(H) <3 11/07/2024 5:28 PM [facility] Comment:Increased Blood (Plasma/Serum) 11/07/2024 4:12 PM EST 11/07/2024 5:01 PM EST Kayla Orona APRN LAB BLOOD ORDERABLES [facility] [address] [place] [address], [address] [address] * (ABNORMAL) Phosphorus (11/07/2024 4:12 PM EST) Phosphorus 4.7(H) 2.7 - 4.5 mg/dL 11/07/2024 5:28 PM [facility] Blood (Plasma/Serum) 11/07/2024 4:12 PM EST 11/07/2024 5:01 PM EST [facility] LAB BLOOD ORDERABLES Performing Organization Address City/[facility]/[place] [address], [place] [address] * Magnesium (11/07/2024 4:12 PM EST) Magnesium 2.2 1.6 - 2.7 mg/dL 11/07/2024 5:28 PM [facility] Blood (Plasma/Serum) 11/07/2024 4:12 PM EST 11/07/2024 5:01 PM EST [facility] LAB BLOOD ORDERABLES Performing Organization Address [facility] [place] [address], [place] [address] * (ABNORMAL) Basic Metabolic Panel (11/07/2024 4:12 PM EST) Glucose 183(H) 65 - 99 mg/dL 11/07/2024 5:28 PM [facility] Comment:Fasting: <100 mg/dL, Non-Fasting: <200 mg/dL (ADA 2004) Blood Urea Nitrogen (BUN) 47(H) 8 - 21 mg/dL 11/07/2024 5:28 PM [facility] Creatinine 1.6(H) 0.5 - 1.3 mg/dL 11/07/2024 5:28 PM [facility] eGFR 48(L) >59 11/07/2024 5:28 PM [facility] Comment:CKD-EPI (2020) in mL /min/1.73 sq meters. Sodium 131(L) 136 - 145 mmol/L 11/07/2024 5:28 PM [facility] Potassium 3.7 3.4 - 5.3 mmol/L 11/07/2024 5:28 PM [facility] Chloride 98 98 - 107 mmol/L 11/07/2024 5:28 PM [facility] CO2 21(L) 22 - 33 mmol/L 11/07/2024 5:28 PM EST [facility] Anion Gap 12 7 - 17 11/07/2024 5:28 PM EST [facility] Calcium 8.1(L) 8.7 - 10.5 mg/dL 11/07/2024 5:28 PM EST [facility] BUN/Creatinine Ratio 29(H) 10.0 - 25.0 Ratio 11/07/2024 5:28 PM EST [facility] Blood (Plasma/Serum) 11/07/2024 4:12 PM EST 11/07/2024 5:01 PM EST Kayla Orona APRN [place] [address], [place] [address] * (ABNORMAL) POCT Glucose, Fingerstick (11/07/2024 3:53 PM EST) POC Glucose 179(H) 65 - 99 mg/dL 11/07/2024 3:58 PM EST Blood specimen / Unknown 11/07/2024 3:53 PM EST 11/07/2024 3:58 PM EST Dallas Camejo MD POINT OF CARE TEST [facility] See Below * ECG 12 lead (11/07/2024 2:58 PM EST) Systolic BP 116 mmHg EKG [facility] Diastolic BP 57 mmHg EKG [facility] Ventricular rate 62 BPM EKG [facility] Atrial rate 55 BPM EKG [facility] QRS duration 168 ms EKG [facility] Q-T interval 506 ms EKG [facility] QTC calculation (Bazett) 513 ms EKG [facility] R axis 104 degrees EKG [facility] T axis -39 degrees EKG [facility] 11/07/2024 2:58 PM EST Narrative EKG [facility] - 11/07/2024 6:25 PM EST Ventricular-paced rhythm Abnormal ECG When compared with ECG of 02-Nov-2024 21:34, Vent. rate has decreased by ?? 8 bpm Confirmed by MD Arce Ahmed ([id number]) on 11/07/2024 6:25:53 PM Procedure Note Bossman Arce MD - 11/07/2024 Ventricular-paced rhythm Abnormal ECG When compared with ECG of 02-Nov-2024 21:34, Vent. rate has decreased by 8 bpm Confirmed by MD Arce Ahmed ([id number]) on 11/07/2024 6:25:53 PM Dallas Camejo MD ECG ORDERABLES Performing Organization Address City/[facility]/ZIP Co de Phone Number [facility] * BLOOD CULTURE Peripheral (11/07/2024 1:02 PM EST) Culture Sterile after 5 days 11/12/2024 7:50 AM EST [facility] Microbiology Peripheral blood specimen / Unknown 11/07/2024 1:02 PM EST 11/07/2024 1:23 PM EST Chris Taylor MD LAB AMB MICRO ORDERA BLES Performing Organization Address [facility] Co de Phone Number [facility] [address] [place] [address], * BLOOD CULTURE Peripheral (11/07/2024 12:57 PM EST) Culture Sterile after 5 days 11/12/2024 7:50 AM EST [facility] Microbiology Peripheral blood specimen / Unknown 11/07/2024 12:57 PM EST 11/07/2024 1:49 PM EST Chris Taylor MD LAB AMB MICRO ORDERA BLES Performing Organization Address [facility] Co de Phone Number [facility] [address] [place] [address], [place] * (ABNORMAL) Blood Gas, Arterial (STAT) (11/07/2024 12:36 PM EST) pH, Arterial 7.38 7.35 - 7.45 11/07/2024 1:02 PM EST [facility] pCO2, Arterial 36 32 - 45 mmHG 11/07/2024 1:02 PM EST [facility] pO2, Arterial 119(H) 75 - 95 mmHG 11/07/2024 1:02 PM EST [facility] CO2, Total 22 22 - 28 mmol/L 11/07/2024 1:02 PM EST [facility] Respiratory Info OTHER 11/07/19 12:36 PM EST Base Deficiency 3.5 mmol/L 1:02 PM [facility] Comment:Reference Range: Neg ative 2 to Positive 3 Blood Blood specimen / Unknown 11/07/2024 12:36 PM EST 11/07/2024 12:50 PM EST Kayla Orona APRN [place] [address], [place] [address] * (ABNORMAL) POCT Glucose, Fingerstick (11/07/2024 12:29 PM EST) Pathologist [facility] POC Glucose 213(H) 65 - 99 mg/dL 11/07/2024 12:29 PM EST Blood specimen / Unknown 11/07/2024 12:29 PM EST 11/07/2024 12:30 PM EST Dallas Camejo MD POINT OF CARE TEST [facility] See Below * XR Chest 1 view-Portable (STAT) (11/07/2024 10:17 AM EST) Anatomical Region Laterality Modality Chest Computed Radiogr aphy 11/07/2024 9:50 AM EST Impressions 11/07/2024 2:54 PM EST Worsening bilateral upper lung field airspace opacities and bronchial wall thickening compared to prior. Interpreted by: ??Roberto Tolbert MD Erosion Control Specialist I personally reviewed the images and the resident's preliminary report and AGREE with the report as it is now presented ([email or web address]). Narrative 11/07/2024 2:54 PM EST EXAMINATION: XR CHEST CLINICAL INFORMATION: SOB, fluid overload COMPARISON: Chest radiograph November 04, 2024. TECHNIQUE: Frontal view of the chest was obtained. FINDINGS: Left pectoral pacemaker leads are intact in similar position to prior. Worsening airspace opacities overlying the bilateral upper lung ta with associated bronchial wall thickening compared to prior.. Normal pulmonary vascularity. No pleural effusion or pneumothorax. Normal and unchanged cardiomediastinal silhouette. Surgical clips overlie the mid upper abdomen. Procedure Note Suleman Vogt MD - 11/07/2024 EXAMINATION: XR CHEST CLINICAL INFORMATION: SOB, fluid overload COMPARISON: Chest radiograph November 04, 2024. TECHNIQUE: Frontal view of the chest was obtained. FINDINGS: Left pectoral pacemaker leads are intact in similar position to prior. Worsening airspace opacities overlying the bilateral upper lung ta with associated bronchial wall thickening compared to prior.. Normal pulmonary vascularity. No pleural effusion or pneumothorax. Normal and unchanged cardiomediastinal silhouette. Surgical clips overlie the mid upper abdomen. IMPRESSION: Worsening bilateral upper lung field airspace opacities and bronchial wall thickening compared to prior. Interpreted by: Roberto Tolbert MD Erosion Control Specialist I personally reviewed the images and the resident's preliminary report and AGREE with the report as it is now presented ([email or web address]). Juaquin Kern MD IMG DIAGNOSTIC [facility] ORDERABLES * (ABNORMAL) High Sensitivity Troponin T (11/07/2024 8:13 AM EST) High Sensitivity Troponin T 26(H) <23 ng/L 11/07/2024 12:53 PM EST [facility] Delta (Change) NO PREVIOUS RESULT <3 11/07/2024 12:53 PM EST [facility] Plasma/Serum 11/07/2024 8:13 AM EST 11/07/2024 8:49 AM EST Juaquin Kern MD LAB BLOOD ORDERABL ES [facility] [address] [place] [address], [facility] [address] [place] [address] * (ABNORMAL) proBNP, N-terminal (11/07/2024 8:13 AM EST) Pathologist [facility] proBNP, N-terminal 3,427(H) <125 pg/mL 11/07/2024 10:25 AM [facility] Plasma specimen / Unknown 11/07/2024 8:13 AM EST 11/07/2024 8:49 AM EST Juaquin Kern MD [place] [address], [place] [address] * (ABNORMAL) Complete Blood Count, WITHOUT Differential (routine) (11/07/2024 8:13 AM EST) [facility] White Blood Cell Count 12.4(H) 4.0 - 11.0 Thou/uL 11/07/2024 9:05 AM [facility] Platelet Count 430 150 - 450 Thou/uL 11/07/2024 9:05 AM [facility] Hemoglobin 8.9(L) 13.0 - 17.7 g/dL 11/07/2024 9:05 AM [facility] Hematocrit 28.9(L) 39.0 - 54.0 % 11/07/2024 9:05 AM [facility] Red Blood Cell Count 3.16(L) 4.50 - 6.20 Mil/uL 11/07/2024 9:05 AM [facility] MCV 92 80 - 100 fL 11/07/2024 9:05 AM [facility] MCH 28.2 27.0 - 31.0 pg 11/07/2024 9:05 AM [facility] MCHC 30.8 30.0 - 36.0 g/dL 11/07/2024 9:05 AM [facility] RDW 16.7(H) 11.5 - 14.5 % 11/07/2024 9:05 AM [facility] MPV 9.6 7.5 - 12.5 fL 11/07/2024 9:05 AM [facility] nRBC 0.2(H) 0.0 - 0.1 /100 WBC 11/07/2024 9:05 AM [facility] nRBC, Absolute 0.03(H) 0.00 - 0.02 Thou/uL 11/07/2024 9:05 AM [facility] Blood Blood specimen / Unknown 11/07/2024 8:13 AM EST 11/07/2024 8:49 AM EST Juaquin Kern MD [place] [address], [place] [address] * MAGNESIUM (11/07/2024 8:13 AM EST) Magnesium 2.3 1.6 - 2.7 mg/dL 11/07/2024 9:26 AM [facility] Blood (Plasma/Serum) 11/07/2024 8:13 AM EST 11/07/2024 8:49 AM EST Juaquin Kern MD LAB BLOOD ORDERABL ES Performing Organization Address City/[facility]/[place] [address], [place] [address] * PHOSPHORUS (11/07/2024 8:13 AM EST) Phosphorus 4.3 2.7 - 4.5 mg/dL 11/07/2024 9:26 AM [facility] Blood (Plasma/Serum) 11/07/2024 8:13 AM EST 11/07/2024 8:49 AM EST Juaquin Kern MD LAB BLOOD ORDERABL ES Performing Organization Address City/[facility]/[place] [address], [place] [id number] * (ABNORMAL) Comprehensive Metabolic Panel (11/07/2024 8:13 AM EST) Glucose 188(H) 65 - 99 mg/dL 11/07/2024 9:26 AM [facility] Comment:Fasting: <100 mg/dL, Non-Fasting: <200 mg/dL (ADA 2004) Blood Urea Nitrogen (BUN) 47(H) 8 - 21 mg/dL 11/07/2024 9:26 AM [facility] Creatinine 1.5(H) 0.5 - 1.3 mg/dL 11/07/2024 9:26 AM [facility] eGFR 52(L) >59 11/07/2024 9:26 AM [facility] Comment:CKD-EPI (2020) in mL /min/1.73 sq meters. Sodium 129(L) 136 - 145 mmol/L 11/07/2024 9:26 AM [facility] Potassium 3.9 3.4 - 5.3 mmol/L 11/07/2024 9:26 AM [facility] Chloride 94(L) 98 - 107 mmol/L 11/07/2024 9:26 AM [facility] CO2 22 22 - 33 mmol/L 11/07/2024 9:26 AM [facility] Calcium 8.3(L) 8.7 - 10.5 mg/dL 11/07/2024 9:26 AM [facility] Alkaline Phosphatase 220(H) 45 - 128 U/L 11/07/2024 9:26 AM [facility] Aspartate Aminotrans (AST) 28 10 - 55 U/L 11/07/2024 9:26 AM [facility] Alanine Aminotrans (ALT) 29 10 - 55 U/L 11/07/2024 9:26 AM [facility] Bilirubin, Total 0.2 0.2 - 1.0 mg/dL 11/07/2024 9:26 AM [facility] Protein, Total 6.1(L) 6.3 - 8.3 g/dL 11/07/2024 9:26 AM [facility] Albumin 2.6(L) 3.4 - 4.8 g/dL 11/07/2024 9:26 AM [facility] BUN/Creatinine Ratio 31(H) 10.0 - 25.0 Ratio 11/07/2024 9:26 AM EST [facility] Globulin 3.5 1.5 - 3.9 g/dL 11/07/2024 9:26 AM [facility] Albumin/Globulin Ratio 0.7(L) 1.0 - 3.0 Ratio 11/07/2024 9:26 AM EST [facility] Anion Gap 13 7 - 17 11/07/2024 9:26 AM EST [facility] Blood (Plasma/Serum) 11/07/2024 8:13 AM EST 11/07/2024 8:49 AM EST Juaquin Kern MD [place] [address], [place] [address] * (ABNORMAL) POCT Glucose, Fingerstick (11/07/2024 7:33 AM EST) POC Glucose 191(H) 65 - 99 mg/dL 11/07/2024 7:36 AM EST Blood specimen / Unknown 11/07/2024 7:33 AM EST 11/07/2024 7:36 AM EST Dallas Camejo MD [facility] See Below * (ABNORMAL) POCT Glucose, Fingerstick (11/07/2024 2:07 AM EST) POC Glucose 231(H) 65 - 99 mg/dL 11/07/2024 2:08 AM EST Blood specimen / Unknown 11/07/2024 2:07 AM EST 11/07/2024 2:08 AM EST Dallas Camejo MD [facility] See Below * (ABNORMAL) POCT Glucose, Fingerstick (11/06/2024 9:23 PM EST) POC Glucose 277(H) 65 - 99 mg/dL 11/06/2024 9:24 PM EST Blood specimen / Unknown 11/06/2024 9:23 PM EST 11/06/2024 9:24 PM EST Dallas Camejo MD POINT OF CARE TEST [facility] Performing Organization Address [facility] LAB See Below * (ABNORMAL) POCT Glucose, Fingerstick (11/06/2024 5:24 PM EST) POC Glucose 193(H) 65 - 99 mg/dL 11/06/2024 5:29 PM EST Blood specimen / Unknown 11/06/2024 5:24 PM EST 11/06/2024 5:29 PM EST Dallas Camejo MD POINT OF CARE TEST O JO[facility]PH Performing Organization Address [facility] LAB See Below * (ABNORMAL) POCT Glucose, Fingerstick (11/06/2024 2:45 PM EST) POC Glucose 217(H) 65 - 99 mg/dL 11/06/2024 2:46 PM EST Blood specimen / Unknown 11/06/2024 2:45 PM EST 11/06/2024 2:46 PM EST Dallas Camejo MD POINT OF CARE TEST [facility] Performing Organization Address [facility] Number [facility] LAB See Below * (ABNORMAL) POCT Glucose, Fingerstick (11/06/2024 12:10 PM EST) POC Glucose 229(H) 65 - 99 mg/dL 11/06/2024 2:24 PM EST Blood specimen / Unknown 11/06/2024 12:10 PM EST 11/06/2024 2:24 PM EST Dallas Camejo MD [facility] See Below * (ABNORMAL) POCT Glucose, Fingerstick (11/06/2024 7:51 AM EST) Pathologist [facility] POC Glucose 210(H) 65 - 99 mg/dL 11/06/2024 8:43 AM EST Blood specimen / Unknown 11/06/2024 7:51 AM EST 11/06/2024 8:43 AM EST Dallas Camejo MD [facility] See Below * (ABNORMAL) Complete Blood Count WITH Differential - Early AM (11/06/2024 4:58 AM EST) [facility] White Blood Cell Count 11.9(H) 4.0 - 11.0 Thou/uL 11/06/2024 5:26 AM [facility] Platelet Count 346 150 - 450 Thou/uL 11/06/2024 5:26 AM [facility] Hemoglobin 8.7(L) 13.0 - 17.7 g/dL 11/06/2024 5:26 AM [facility] Hematocrit 27.9(L) 39.0 - 54.0 % 11/06/2024 5:26 AM [facility] Red Blood Cell Count 3.05(L) 4.50 - 6.20 Mil/uL 11/06/2024 5:26 AM [facility] MCV 92 80 - 100 fL 11/06/2024 5:26 AM [facility] MCH 28.5 27.0 - 31.0 pg 11/06/2024 5:26 AM [facility] MCHC 31.2 30.0 - 36.0 g/dL 11/06/2024 5:26 AM [facility] RDW 16.4(H) 11.5 - 14.5 % 11/06/2024 5:26 AM [facility] MPV 9.5 7.5 - 12.5 fL 11/06/2024 5:26 AM [facility] Neutrophils Auto 88.8 % 11/06/19 5:26 AM [facility] Immature Granulocytes 1.1 % 11/06/2024 5:26 AM [facility] Lymphocytes Auto 3.4 % 11/06/19 5:26 AM [facility] Monocytes Auto 6.6 % 11/06/2024 5:26 AM [facility] Eosinophils Auto 0.0 % 11/06/19 5:26 AM [facility] Basophils Auto 0.1 % 11/06/2024 5:26 AM [facility] Abs Neutrophils Auto 10.57(H) 2.00 - 7.50 Thou/uL 11/06/2024 5:26 AM [facility] Abs Immature Granulocytes 0.13(H) 0.00 - 0.10 Thou/uL 11/06/2024 5:26 AM [facility] Abs Lymphocytes Auto 0.41(L) 1.50 - 4.50 Thou/uL 11/06/2024 5:26 AM [facility] Abs Monocytes Auto 0.79 0.20 - 1.50 Thou/uL 11/06/2024 5:26 AM [facility] Abs Eosinophils Auto 0.00 0.00 - 0.70 Thou/uL 11/06/2024 5:26 AM [facility] Abs Basophils Auto 0.01 0.00 - 0.20 Thou/uL 11/06/2024 5:26 AM [facility] Blood Blood specimen / Unknown 11/06/2024 4:58 AM EST 11/06/2024 5:15 AM EST Renea PATTON [place] [address], [place] [address] * (ABNORMAL) PHOSPHORUS (11/06/2024 4:58 AM EST) Phosphorus 5.1(H) 2.7 - 4.5 mg/dL 11/06/2024 5:46 AM [facility] Blood (Plasma/Serum) 11/06/2024 4:58 AM EST 11/06/2024 5:15 AM EST Renea PATTON [place] [address], [place] [address] * MAGNESIUM (11/06/2024 4:58 AM EST) Magnesium 2.5 1.6 - 2.7 mg/dL 11/06/2024 5:46 AM [facility] Blood (Plasma/Serum) 11/06/2024 4:58 AM EST 11/06/2024 5:15 AM EST Renea PATTON LAB BLOOD ORDERABLES Performing Organization Address City/[facility]/[place] [address], [place] [address] * (ABNORMAL) Comprehensive Metabolic Panel (11/06/2024 4:58 AM EST) Glucose 194(H) 65 - 99 mg/dL 11/06/2024 5:46 AM [facility] Comment:Fasting: <100 mg/dL, Non-Fasting: <200 mg/dL (ADA 2005) Blood Urea Nitrogen (BUN) 48(H) 8 - 21 mg/dL 11/06/2024 5:46 AM [facility] Creatinine 1.7(H) 0.5 - 1.3 mg/dL 11/06/2024 5:46 AM [facility] eGFR 45(L) >59 11/06/2024 5:46 AM [facility] Comment:CKD-EPI (2020) in mL /min/1.73 sq meters. Sodium 131(L) 136 - 145 mmol/L 11/06/2024 5:46 AM [facility] Potassium 3.8 3.4 - 5.3 mmol/L 11/06/2024 5:46 AM [facility] Chloride 99 98 - 107 mmol/L 11/06/2024 5:46 AM [facility] CO2 20(L) 22 - 33 mmol/L 11/06/2024 5:46 AM [facility] Calcium 7.8(L) 8.7 - 10.5 mg/dL 11/06/2024 5:46 AM [facility] Alkaline Phosphatase 270(H) 45 - 128 U/L 11/06/2024 5:46 AM [facility] Aspartate Aminotrans (AST) 50 10 - 55 U/L 11/06/2024 5:46 AM [facility] Alanine Aminotrans (ALT) 31 10 - 55 U/L 11/06/2024 5:46 AM [facility] Bilirubin, Total 0.2 0.2 - 1.0 mg/dL 11/06/2024 5:46 AM [facility] Protein, Total 5.7(L) 6.3 - 8.3 g/dL 11/06/2024 5:46 AM [facility] Albumin 2.4(L) 3.4 - 4.8 g/dL 11/06/2024 5:46 AM [facility] BUN/Creatinine Ratio 28(H) 10.0 - 25.0 Ratio 11/06/2024 5:46 AM [facility] Globulin 3.3 1.5 - 3.9 g/dL 11/06/2024 5:46 AM [facility] Albumin/Globulin Ratio 0.7(L) 1.0 - 3.0 Ratio 11/06/2024 5:46 AM [facility] Anion Gap 12 7 - 17 11/06/2024 5:46 AM [facility] Blood (Plasma/Serum) 11/06/2024 4:58 AM EST 11/06/2024 5:15 AM EST Renea PATTON [place] [address], [place] [address] * BLOOD CULTURE Peripheral (11/06/2024 4:58 AM EST) Culture Sterile after 5 days 11/11/2024 8:20 AM [facility] Microbiology Peripheral blood specimen / Unknown 11/06/2024 4:58 AM EST 11/06/2024 5:36 AM EST Renea PATTON LAB AMB MICRO ORDERA BLES Performing Organization Address [facility]/ZIP Co de Phone Number [facility] [address] [place] [address], * BLOOD CULTURE Peripheral (11/06/2024 4:58 AM EST) Culture Sterile after 5 days 11/11/2024 8:20 AM EST [facility] Microbiology Peripheral blood specimen / Unknown 11/06/2024 4:58 AM EST 11/06/2024 5:36 AM EST Renea PATTON LAB AMB MICRO ORDERA BLES Performing Organization Address [facility] Co de Phone Number [facility] [address] [place] [address], * (ABNORMAL) POCT Glucose, Fingerstick (11/06/2024 1:17 AM EST) POC Glucose 229(H) 65 - 99 mg/dL 11/06/2024 1:18 AM EST Blood specimen / Unknown 11/06/2024 1:17 AM EST 11/06/2024 1:18 AM EST Dallas Camejo MD [facility] See Below * (ABNORMAL) POCT Glucose, Fingerstick (11/05/2024 11:05 PM EST) POC Glucose 251(H) 65 - 99 mg/dL 11/05/2024 11:07 PM EST Blood specimen / Unknown 11/05/2024 11:05 PM EST 11/05/2024 11:07 PM EST Dallas Camejo MD [facility] See Below * (ABNORMAL) POCT Glucose, Fingerstick (11/05/2024 6:10 PM EST) POC Glucose 138(H) 65 - 99 mg/dL 11/05/2024 6:10 PM EST Blood specimen / Unknown 11/05/2024 6:10 PM EST 11/05/2024 6:11 PM EST Dallas Camejo MD POINT OF CARE TEST O JOSEPH Performing Organization Address [facility] LAB See Below * (ABNORMAL) POCT Glucose, Fingerstick (11/05/2024 3:37 PM EST) POC Glucose 138(H) 65 - 99 mg/dL 11/05/2024 3:38 PM EST Blood specimen / Unknown 11/05/2024 3:37 PM EST 11/05/2024 3:38 PM EST Dallas Camejo MD POINT OF CARE TEST O JOSEPH Performing Organization Address [facility] Number [facility] LAB See Below * Pathology (11/05/2024 2:11 PM EST) Report [facility] [id number] ?? CLIA ID [id number] [address] [place] [address] ??[phone] Surgical Pathology Report PATIENT NAME: BLAS GENAO [facility] REC NUMBER: [id number] (AGE): 1960 (Age: 63) SPECIMEN NUMBER: [id number] DATE OBTAINED: 11/05/2024 DIAGNOSIS LEFT LOWER EXTREMITY, BELOW KNEE AMPUTATION: ??SEVERE PERIPHERAL ARTERIOSCLEROSIS WITH CALCIFICATION, GANGRENOUS ULCER OF FOOT WITH SEVERE ACUTE OSTEOMYELITIS. NEGATIVE AMPUTATION MARGIN. /11/16/2024 Electronically Signed Out ? SENA SHABAZZ MD COMMENT [id number], [id number] Clinical Information and History: Acute osteomyelitis of left calcaneus [id number]:18 Tissue(s) Submitted: A: LEFT BELOW KNEE AMPUTATION Gross Description: The specimen is received fresh labeled per the requisition as left below the knee amputation, and consists of a 29.2 x 10.6 x 7.3 cm left below the knee amputation specimen, with an attached 19.4 x 10.2 x 7.2 cm foot, which displays five intact digits. ??The portion of fibula measures 2.6 cm above the soft tissue resection margin, and the portion of tibia measures 1.5 cm above the skin and soft tissue resection margin. ??The bone resection margins are huang, firm, and smooth, with central huang-red soft bone marrow cavities. ??The soft tissue resection margin is comprised of yellow, lobulated adipose tissue and red, rubbery, viable skeletal muscle. ??The plantar aspect of the foot, towards the heel, displays a 12.2 x 5.5 cm huang-manrique, dusky, and ulcerated lesion with exposed underlying bone. ??The lesion measures 13.5 cm from the nearest skin and soft tissue resection margin, 28.6 cm from the tibia bone resection margin, and 30.7 cm from the fibula bone resection margin. ??The remaining epidermal surface is huang, wrinkled, and slightly purple and congested, predominantly on the dorsal aspect of the foot. ??The nails on the digits are yellow, firm, and slightly thickened, measuring 0.4 cm in greatest thickness. ??The bone resection margins and nearest skin and soft tissue resection margins to the lesion are inked blue. Sectioning through the lesion reveals huang-red, congested, slightly dusky and softened cut surfaces, with dusky, slightly softened underlying bone. Sectioning through the congested area on the dorsal aspect of the foot reveals red-purple, congested, softened cut surfaces, with no definitive underlying softened bone. ??Sectioning through the anterior tibial, posterior tibial, and dorsalis pedis arteries reveals huang-yellow, firm, calcified cut surfaces, and up to 40% stenosis, predominantly in the anterior tibial artery. ??No other masses or lesions are grossly identified. ??Cut Off Saw Grader sections are submitted in A1 - ?? as follows: A1: ??Portion of tibia bone resection margin, en face, submitted following acid decalcification A2: ??Fibula bone resection margin, en face, submitted following acid decalcification A3-A4: ??Lesion, to include skin and soft tissue in A3, and underlying partially softened bone in A4, submitted ? following acid decalcification A5: ??Nearest skin and soft tissue resection margin to lesion, en face A6: ??Congested area on dorsal aspect of foot A7: ??Anterior tibial artery, cross sections, to include anterior tibial artery margin (inked blue), en face A8: ??Dorsalis pedis artery cross sections A9: ??Posterior tibial artery cross sections, and posterior tibial artery margin (inked blue), en face HOSPITAL LAB Bone with Tissue Structure of left lower leg / Unknown 11/05/2024 2:11 PM EST Dallas Camejo MD PATHOLOGY/CYTOLOGY O RDGHANSHYAM Performing Organization Address [facility] Co de Phone Number HOSPITAL LAB See Below * (ABNORMAL) POCT Glucose, Fingerstick (11/05/2024 12:54 PM EST) POC Glucose 128(H) 65 - 99 mg/dL 11/05/2024 2:08 PM EST Blood specimen / Unknown 11/05/2024 12:54 PM EST 11/05/2024 2:08 PM EST Dallas Camejo MD POINT OF CARE TEST O RDGHANSHYAM Performing Organization Address [facility] Phone Number [facility] LAB See Below * (ABNORMAL) PROTIME-INR (11/05/2024 7:12 AM EST) Anticoagulant Information not given 11/05/2024 7:47 AM [facility] Prothrombin Time (PT) 15.3(H) 10.0 - 13.5 seconds 11/05/2024 8:07 AM [facility] INR 1.3 11/05/2024 8:07 AM [facility] Comment:INR Therapeutic Rang es: Standard dose anticoagulant 2.0 to 3.0, High dose anticoagulant 2.5-3.5. Plasma specimen / Unknown 11/05/2024 7:12 AM EST 11/05/2024 7:46 AM EST Chris Taylor MD [place] [address], [place] [address] * (ABNORMAL) COMPLETE BLOOD COUNT, WITHOUT DIFFERENTIAL (11/05/2024 7:12 AM EST) White Blood Cell Count 15.9(H) 4.0 - 11.0 Thou/uL 11/05/2024 7:59 AM [facility] Platelet Count 353 150 - 450 Thou/uL 11/05/2024 7:59 AM [facility] Hemoglobin 9.1(L) 13.0 - 17.7 g/dL 11/05/2024 7:59 AM [facility] Hematocrit 28.3(L) 39.0 - 54.0 % 11/05/2024 7:59 AM [facility] Red Blood Cell Count 3.12(L) 4.50 - 6.20 Mil/uL 11/05/2024 7:59 AM [facility] MCV 91 80 - 100 fL 11/05/2024 7:59 AM [facility] MCH 29.2 27.0 - 31.0 pg 11/05/2024 7:59 AM [facility] MCHC 32.2 30.0 - 36.0 g/dL 11/05/2024 7:59 AM [facility] RDW 16.8(H) 11.5 - 14.5 % 11/05/2024 7:59 AM [facility] MPV 9.8 7.5 - 12.5 fL 11/05/2024 7:59 AM [facility] Blood specimen / Unknown 11/05/2024 7:12 AM EST 11/05/2024 7:46 AM EST Chris Taylor MD [place] [address], [place] [address] * (ABNORMAL) BASIC METABOLIC PANEL (11/05/2024 7:12 AM EST) Glucose 146(H) 65 - 99 mg/dL 11/05/2024 8:18 AM [facility] Comment:Fasting: <100 mg/dL, Non-Fasting: <200 mg/dL (ADA 2004) Blood Urea Nitrogen (BUN) 47(H) 8 - 21 mg/dL 11/05/2024 8:18 AM [facility] Creatinine 2.0(H) 0.5 - 1.3 mg/dL 11/05/2024 8:18 AM [facility] eGFR 37(L) >59 11/05/2024 8:18 AM [facility] Comment:CKD-EPI (2020) in mL /min/1.73 sq meters. Sodium 130(L) 136 - 145 mmol/L 11/05/2024 8:18 AM [facility] Potassium 3.4 3.4 - 5.3 mmol/L 11/05/2024 8:18 AM [facility] Chloride 96(L) 98 - 107 mmol/L 11/05/2024 8:18 AM [facility] CO2 19(L) 22 - 33 mmol/L 11/05/2024 8:18 AM [facility] Anion Gap 15 7 - 17 11/05/2024 8:18 AM [facility] Calcium 7.9(L) 8.7 - 10.5 mg/dL 11/05/2024 8:18 AM [facility] BUN/Creatinine Ratio 24 10.0 - 25.0 Ratio 11/05/2024 8:18 AM [facility] Plasma/Serum 11/05/2024 7:12 AM EST 11/05/2024 7:46 AM EST Chris Taylor MD [place] [address], [address] [address] * (ABNORMAL) Hepatic Function Panel (AM) (11/05/2024 7:12 AM EST) Alkaline Phosphatase 153(H) 45 - 128 U/L 11/05/2024 8:18 AM [facility] Aspartate Aminotrans (AST) 26 10 - 55 U/L 11/05/2024 8:18 AM [facility] Alanine Aminotrans (ALT) 23 10 - 55 U/L 11/05/2024 8:18 AM [facility] Bilirubin, Total 0.3 0.2 - 1.0 mg/dL 11/05/2024 8:18 AM [facility] Protein, Total 5.9(L) 6.3 - 8.3 g/dL 11/05/2024 8:18 AM [facility] Albumin 2.5(L) 3.4 - 4.8 g/dL 11/05/2024 8:18 AM [facility] Bilirubin, Direct 0.2 0 - 0.2 mg/dL 11/05/2024 8:18 AM [facility] Globulin 3.4 1.5 - 3.9 g/dL 11/05/2024 8:18 AM [facility] Albumin/Globulin Ratio 0.7(L) 1.0 - 3.0 Ratio 11/05/2024 8:18 AM [facility] Blood (Plasma/Serum) 11/05/2024 7:12 AM EST 11/05/2024 7:46 AM EST Chris Taylor MD [place] [address], [place] [address] * Creatine Kinase, Reflex to CKMB (11/05/2024 7:12 AM EST) Creatine Kinase (CK) 49 24 - 204 U/L 11/05/2024 8:18 AM [facility] Blood (Plasma/Serum) 11/05/2024 7:12 AM EST 11/05/2024 7:46 AM EST Chris Taylor MD LAB BLOOD ORDERABLES Performing Organization Address City/[facility]/[place] [address], [place] [address] * (ABNORMAL) POCT Glucose, Fingerstick (11/05/2024 6:26 AM EST) POC Glucose 166(H) 65 - 99 mg/dL 11/05/2024 6:27 AM EST Blood specimen / Unknown 11/05/2024 6:26 AM EST 11/05/2024 6:27 AM EST Dallas Camejo MD POINT OF CARE TEST O RDGHANSHYAM Performing Organization Address [facility] de Phone Number HOSPITAL LAB See Below * (ABNORMAL) POCT Glucose, Fingerstick (11/05/2024 1:46 AM EST) POC Glucose 176(H) 65 - 99 mg/dL 11/05/2024 1:47 AM EST Blood specimen / Unknown 11/05/2024 1:46 AM EST 11/05/2024 1:47 AM EST Dallas Camejo MD POINT OF CARE TEST O JOSEPH Performing Organization Address [facility] Phone Number HOSPITAL LAB See Below * XR Chest 1 view-Portable (STAT) (11/04/2024 11:17 PM EST) Anatomical Region Laterality Modality Chest Computed Radiogr aphy 11/04/2024 10:5 4 PM EST Impressions 11/05/2024 5:04 AM EST Bilateral reticulonodular opacities concerning for interstitial edema. Superimposed atypical infection cannot be ruled out. Interpreted by: ??David Vogt DO Erosion Control Specialist I personally reviewed the images and the resident's preliminary report and AGREE with the report as it is now presented (RADPAL1). Narrative 11/05/2024 5:04 AM EST EXAMINATION: XR CHEST CLINICAL INFORMATION: desat + dyspnea COMPARISON: Chest x-ray on 11/12/2017 TECHNIQUE: Frontal view of the chest was obtained. FINDINGS: Left-sided pacemaker. The lungs are adequately expanded. Extensive bilateral reticulonodular opacities. No pleural effusion. No pneumothorax. Cardiac silhouette mildly prominent but similar to prior. No acute osseous findings. Procedure Note Dalila Arizmendi MD - 11/05/2024 EXAMINATION: XR CHEST CLINICAL INFORMATION: desat + dyspnea COMPARISON: Chest x-ray on 11/12/2017 TECHNIQUE: Frontal view of the chest was obtained. FINDINGS: Left-sided pacemaker. The lungs are adequately expanded. Extensive bilateral reticulonodular opacities. No pleural effusion. No pneumothorax. Cardiac silhouette mildly prominent but similar to prior. No acute osseous findings. IMPRESSION: Bilateral reticulonodular opacities concerning for interstitial edema. Superimposed atypical infection cannot be ruled out. Interpreted by: David Vogt DO Erosion Control Specialist I personally reviewed the images and the resident's preliminary report and AGREE with the report as it is now presented (RADPAL1). Nate [facility] ORDERABLES * (ABNORMAL) POCT Glucose, Fingerstick (11/04/2024 8:52 PM EST) POC Glucose 258(H) 65 - 99 mg/dL 11/04/2024 9:36 PM EST Blood specimen / Unknown 11/04/2024 8:52 PM EST 11/04/2024 9:36 PM EST Dallas Camejo MD POINT OF CARE TEST O JOSEPH [facility] LAB See Below * (ABNORMAL) POCT Glucose, Fingerstick (11/04/2024 5:00 PM EST) POC Glucose 172(H) 65 - 99 mg/dL 11/04/2024 5:22 PM EST Blood specimen / Unknown 11/04/2024 5:00 PM EST 11/04/2024 5:22 PM EST Dallas Camejo MD [facility] See Below * (ABNORMAL) POCT Glucose, Fingerstick (11/04/2024 12:43 PM EST) POC Glucose 167(H) 65 - 99 mg/dL 11/04/2024 12:48 PM EST Blood specimen / Unknown 11/04/2024 12:43 PM EST 11/04/2024 12:48 PM EST Dallas Camejo MD POINT OF CARE TEST O [facility] See Below * (ABNORMAL) Complete Blood Count WITHOUT Differential - Early AM (11/04/2024 11:19 AM EST) White Blood Cell Count 13.4(H) 4.0 - 11.0 Thou/uL 11/04/2024 11:38 AM [facility] Platelet Count 326 150 - 450 Thou/uL 11/04/2024 11:38 AM [facility] Hemoglobin 8.7(L) 13.0 - 17.7 g/dL 11/04/2024 11:38 AM [facility] Hematocrit 28.0(L) 39.0 - 54.0 % 11/04/2024 11:38 AM [facility] Red Blood Cell Count 3.05(L) 4.50 - 6.20 Mil/uL 11/04/2024 11:38 AM [facility] MCV 92 80 - 100 fL 11/04/2024 11:38 AM [facility] MCH 28.5 27.0 - 31.0 pg 11/04/2024 11:38 AM [facility] MCHC 31.1 30.0 - 36.0 g/dL 11/04/2024 11:38 AM [facility] RDW 16.6(H) 11.5 - 14.5 % 11/04/2024 11:38 AM [facility] MPV 9.4 7.5 - 12.5 fL 11/04/2024 11:38 AM [facility] Blood Blood specimen / Unknown 11/04/2024 11:19 AM EST 11/04/2024 11:28 AM EST Renea PATTON [place] [address], [address] [place] [address] * (ABNORMAL) BLOOD CULTURE Peripheral (11/04/2024 11:03 AM EST) Gram stain suggestive of Gram positive cocci in clusters 11/07/2024 10:29 AM EST [facility] Culture Methicillin Resistant Staph aureus (MRSA) Aerobic bottle positive. Susceptibility of the same isolate identification, from the same apparent body site is only performed once per 5 calendar days. ?See susceptibilities reported on specimen collected 11/02/2024 (A) 11/08/2024 12:21 PM EST [facility] Microbiology Peripheral blood specimen / Unknown 11/04/2024 11:03 AM EST 11/04/2024 12:35 PM EST Chris Taylor MD LAB AMB MICRO ORDERA BLES Performing Organization Address [facility] Co de Phone Number [facility] [address] [place] [address], * (ABNORMAL) BLOOD CULTURE Peripheral (11/04/2024 11:03 AM EST) Gram stain suggestive of Gram positive cocci in clusters 11/07/2024 1:43 PM [facility] Culture Methicillin Resistant Staph aureus (MRSA) Aerobic bottle positive. Susceptibility of the same isolate identification, from the same apparent body site is only performed once per 5 calendar days. ?See susceptibilities reported on specimen collected 11/02/2024 (A) 11/08/2024 12:17 PM EST [facility] Microbiology Peripheral blood specimen / Unknown 11/04/2024 11:03 AM EST 11/04/2024 12:35 PM EST Chris Taylor MD LAB AMB MICRO ORDERA BLES Performing Organization Address City/[facility]/ZIP Co de Phone Number [facility] [address] [place] [address], * (ABNORMAL) Basic Metabolic Panel (Routine) (11/04/2024 10:50 AM EST) Glucose 184(H) 65 - 99 mg/dL 11/04/2024 11:53 AM [facility] Comment:Fasting: <100 mg/dL, Non-Fasting: <200 mg/dL (ADA 2004) Blood Urea Nitrogen (BUN) 48(H) 8 - 21 mg/dL 11/04/2024 11:53 AM [facility] Creatinine 2.0(H) 0.5 - 1.3 mg/dL 11/04/2024 11:53 AM [facility] eGFR 37(L) >59 11/04/2024 11:53 AM [facility] Comment:CKD-EPI (2020) in mL /min/1.73 sq meters. Sodium 130(L) 136 - 145 mmol/L 11/04/2024 11:53 AM [facility] Potassium 3.7 3.4 - 5.3 mmol/L 11/04/2024 11:53 AM [facility] Chloride 95(L) 98 - 107 mmol/L 11/04/2024 11:53 AM [facility] CO2 21(L) 22 - 33 mmol/L 11/04/2024 11:53 AM [facility] Anion Gap 14 7 - 17 11/04/2024 11:53 AM [facility] Calcium 7.7(L) 8.7 - 10.5 mg/dL 11/04/2024 11:53 AM [facility] BUN/Creatinine Ratio 24 10.0 - 25.0 Ratio 11/04/2024 11:53 AM [facility] Blood (Plasma/Serum) 11/04/2024 10:50 AM EST 11/04/2024 11:28 AM EST Juaquin Kern MD LAB BLOOD ORDERABL ES [address] [address], [address] [address] * ECHOCARDIOGRAM COMPREHENSIVE (11/04/2024 9:05 AM EST) LV velez vol 3D 247.0 mL LV Diastolic Volume 206 mL LV sys vol 3D 141.0 mL LV Systolic Volume 112 mL IVS (F:0.6-0.9, M:0.6-1.0) 1.2 cm IVS Mean (F:0.6-0.9, M:0.6-1.0) 1.2 cm LVIDD (F:3.8-5.2, M:4.2-5.8) 5.7 cm LVIDD Mean (F:3.8-5.2, M:4.2-5.8) 5.7 cm LVIDS (F:2.2-3.5, M:2.5-4.0) 4.6 cm LVIDS (F:2.2-3.5, M:2.5-4.0) 4.6 cm LVOT diameter 2.3 cm LVOT diameter mean 2.3 cm LVOT mn grad mean 2.0 mmHg LVOT VTI MEAN 21.6 cm LVOT mn grad 2.0 mmHg LVOT VTI 21.6 cm LVOT peak heriberto 1.0 m/s LVOT peak heriberto mean 1.0 m/s PW (F:0.6-0.9, M:0.6-1.0) 1.0 cm PW Mean (F:0.6-0.9, M:0.6-1.0) 1.0 cm MV E' Lateral Velocity 14.70 cm/s MV E' Lateral Velocity Mean 14.70 cm/s MV E' Septal Velocity 8.05 cm/s MV E' Septal Velocity Mean 8.05 cm/s LA sup-inf (apical 2-ch view) 7.11 cm LA volume 70.0 mL RA area 29.0 cm2 RA 2D Volume 121.0 mL AV P Half Time 942 ms Sinuses of Valsalva 4.2 cm Sinuses of Valsalva Mean 4.2 cm Vn Nyquist 38.5 cm/s MR PISA Radius 1.1 cm E wave decelartion time 194 ms E wave decelartion time mean 194 ms MV Peak A-Wave 34.4 cm/s MV Peak A-Wave Mean 34.4 cm/s MV Peak E-Wave 135.0 cm/s MV Peak E-Wave Mean 135.0 cm/s MV mean gradient mean 56.0 mmHg MV VTI MEAN 130.0 cm MV mean gradient 56.0 mmHg MV VTI 130.0 cm MV peak gradient 88.0 mmHg MR Int Pk Flow PISA 292.6 mL/s RVID d 4.8 cm RVID d Mean 4.8 cm RV Free wall pk S' 14.1 cm/s RV Free wall pk S' Mean 14.1 cm/s Tapse 2.0 cm Tapse Mean 2.0 cm TR Peak Heriberto 3.2 m/s Heart Rate 74 bpm BP Systolic 133 mmHg BP Diastolic 63 mmHg Height 74.00 inches Weight 264.00 lbs LV Mass Index (F:43-95, M:49-115) 105.0 g/m2 LA Volume Index (16-34) 28.6 mL/m2 LV Diastolic Volume Index (F:29-61, M:35-75) 84.2 mL/m2 LV Systolic Volume Index (F:8-24, M:11-31) 45.8 mL/m2 E/E' ratio 9.18 LVOT stroke volume 90 mL LVOT area 4.2 cm2 E/A ratio 3.92 MV valve area by continuity eq 0.7 cm2 AV LVOT peak gradient 4.0 mmHg SVI 36 mL/m2 Sinuses of Valsalva Index 1.7 cm/m2 EF - 3D Echo 43 % LV mass 256.7 g Martinez BP EF (55-75) 46 % LA Volume Index 49.5 mL/m2 E/E' Average 13.0 E/E' Septal 16.8 E/E' Lateral 9.2 LVOT SI 36.68 mL/m2 LV RWT 0.35 Left Ventricular Cardiac Index 2.7 L/min/m2 Left Ventricular Cardiac Output 6.6 L/min BSA 2.45 m2 TR Peak Gradient 41 mmHg Est. RA pres 3 mmHg RVSP 44 mmHg PASP 44.0 mmHg Anatomical Region Laterality Modality Ultrasound Narrative 11/04/2024 11:45 AM EST ?The left ventricle is mildly dilated. Left ventricular systolic function is mildly decreased. The quantitative EF is 43% by 3D imaging, and 46% by 2D Martinez biplane. ?The right ventricle is dilated. Right ventricular systolic function is normal. A pacer wire is present in the right ventricle. ?Right atrial cavity is severely dilated. A pacemaker wire is present in the right atrium. ?The mitral leaflets are moderately thickened. There is moderate to severe mitral regurgitation. Cannot rule out vegetation on the mitral valve leaflets. ?There is moderate tricuspid regurgitation. The estimated right ventricular systolic pressure is 44 mmHg. ?There is mild aortic regurgitation. ?The pulmonic valve was not well visualized. ?Compared to previous outside study report from [facility] on 08/05/2024, Mitral and tricuspid regurgitation were not previously reported. ?Recommend transesophageal echocardiogram if clinically indicated. Technical Details Overall the study quality was adequate. The study was technically difficult. Left Ventricle The left ventricle is mildly dilated. Wall thickness is normal. Left ventricular systolic function is mildly decreased. The quantitative EF is 43% by 3D imaging, and 46% by 2D Martinez biplane. There is global hypokinesis without regional variation. Diastolic function could not be accurately assessed due to mitral valve abnormalities. There is abnormal septal motion consistent with right ventricular pacing. Right Ventricle The right ventricle is dilated. Right ventricular systolic function is normal. A pacer wire is present in the right ventricle. Left Atrium Left atrial size is normal. Right Atrium Right atrial cavity is severely dilated. Based on IVC diameter and collapse, right atrial pressure is estimated to be normal (3 mmHg). A pacemaker wire is present in the right atrium. Mitral Valve The mitral leaflets are moderately thickened. There is moderate to severe mitral regurgitation.Cannot rule out vegetation on the mitral valve leaflets. Tricuspid Valve The tricuspid valve is structurally normal. There is moderate tricuspid regurgitation. The estimated right ventricular systolic pressure is 44 mmHg. There is no definite evidence of vegetation on the tricuspid valve. Aortic Valve The aortic valve is tricuspid. The aortic valve leaflets are mildly calcified. There is mild aortic regurgitation. There is no aortic valve stenosis. There is no definite evidence of vegetation on the aortic valve. Pulmonic Valve The pulmonic valve was not well visualized. Ascending Aorta The aorta was not well visualized. The aortic root is mildly dilated at 4.2 cm (1.7 cm/m2). Prior Study Compared to previous outside study report from [facility] on 08/05/2024, Mitral and tricuspid regurgitation were not previously reported. Ena Mtz MD CV ECHO ORDERABL ES * (ABNORMAL) POCT Glucose, Fingerstick (11/04/2024 7:26 AM EST) POC Glucose 141(H) 65 - 99 mg/dL 11/04/2024 7:30 AM EST Blood specimen / Unknown 11/04/2024 7:26 AM EST 11/04/2024 7:30 AM EST Dallas Camejo MD POINT OF CARE TEST O RDERABLES Performing Organization Address [facility] Number [facility] See Below * Prepare RBC's:Prepare in: Units; Number of Units: 2; Transfusion Indications: Hemoglobin greater than 7 gm/dl or HCT greater than 21% but Acute blood loss greater than 500 ml and symptoms not corrected by volume (11/04/2024 6:49 AM EST) Pathologist [facility] Units Ordered 2 11/04/2024 6:53 AM EST Serum specimen / Unknown 11/04/2024 6:49 AM EST 11/04/2024 6:58 AM EST Marialuisa PATTON BLOOD BANK PRODUCT O RDERABLES Performing Organization Address [facility] Phone Number [facility] See Below * (ABNORMAL) POCT Glucose, Fingerstick (11/03/2024 9:25 PM EST) Pathologist [facility] POC Glucose 229(H) 65 - 99 mg/dL 11/03/2024 9:26 PM EST Blood specimen / Unknown 11/03/2024 9:25 PM EST 11/03/2024 9:26 PM EST Dallas Camejo MD POINT OF CARE TEST O RDERALUCILLE Performing Organization Address [facility] Phone Number HOSPITAL LAB See Below * (ABNORMAL) POCT Glucose, Fingerstick (11/03/2024 5:50 PM EST) POC Glucose 158(H) 65 - 99 mg/dL 11/03/2024 6:19 PM EST Blood specimen / Unknown 11/03/2024 5:50 PM EST 11/03/2024 6:19 PM EST [place] Camejo MD POINT OF CARE TEST O RDERALUCILLE Performing Organization Address [facility] Co de Phone Number [facility] See Below * (ABNORMAL) POCT Glucose, Fingerstick (11/03/2024 11:43 AM EST) POC Glucose 153(H) 65 - 99 mg/dL 11/03/2024 11:48 AM EST Blood specimen / Unknown 11/03/2024 11:43 AM EST 11/03/2024 11:48 AM EST Dlalas Camejo MD POINT OF CARE TEST O CRISTIANERALUCILLE Performing Organization Address [facility] Phone Number [facility] See Below * Creatine Kinase (CK) (11/03/2024 10:52 AM EST) Creatine Kinase (CK) 61 24 - 204 U/L 11/03/2024 11:37 AM EST [facility] Blood (Plasma/Serum) 11/03/2024 10:52 AM EST 11/03/2024 11:10 AM EST Ena Mtz MD LAB BLOOD ORDERA BLES Performing Organization Address [facility] [place] [address], [place] [address] * (ABNORMAL) POCT Glucose, Fingerstick (11/03/2024 7:56 AM EST) POC Glucose 165(H) 65 - 99 mg/dL 11/03/2024 8:04 AM EST Blood specimen / Unknown 11/03/2024 7:56 AM EST 11/03/2024 8:04 AM EST Dallas Camejo MD POINT OF CARE TEST O RDERALUCILLE Performing Organization Address [facility] Co de Phone Number [facility] See Below * MRSA PCR Screen, Qualitative (11/03/2024 3:24 AM EST) MRSA Result Not Detected Not Detected 7:00 AM EST [facility] Comment:Performed by the Xpe rt MRSA NxG Assay X-Specimen 12 Specimen from nose / Unknown 11/03/2024 3:24 AM EST 11/03/2024 5:23 AM EST Kenzie PATTON MICROBIOLOGY - GENE RAL ORDERABLES Performing Organization Address [facility] [place] [address], [place] [address] * ECG 12 lead (STAT) (11/02/2024 9:34 PM EST) Pathologist [facility] Ventricular rate 70 BPM EKG [facility] Atrial rate 70 BPM EKG [facility] P-R interval 272 ms EKG [facility] QRS duration 202 ms EKG [facility] Q-T interval 510 ms EKG [facility] QTC calculation (Bazett) 551 ms EKG [facility] P axis 81 degrees EKG [facility] R axis 29 degrees EKG [facility] T axis 132 degrees EKG [facility] 11/02/2024 9:34 PM EST Narrative EKG [facility] - 11/03/2024 4:30 PM EST Atrial-sensed ventricular-paced rhythm with prolonged AV conduction Abnormal ECG When compared with ECG of 15-Sep-2024 06:25, Vent. rate has increased by ?? 9 bpm Confirmed by MD Hagan David ([id number]) on 11/03/2024 4:30:25 PM Procedure Note Deep Hagan MD - 11/03/2024 Atrial-sensed ventricular-paced rhythm with prolonged AV conduction Abnormal ECG When compared with ECG of 15-Sep-2024 06:25, Vent. rate has increased by 9 bpm Confirmed by MD Hagan David ([id number]) on 11/03/2024 4:30:25 PM Kenzie PATTON ECG ORDERABLES [facility] * (ABNORMAL) POCT Glucose, Fingerstick (11/02/2024 9:19 PM EST) POC Glucose 163(H) 65 - 99 mg/dL 11/02/2024 9:20 PM EST Blood specimen / Unknown 11/02/2024 9:19 PM EST 11/02/2024 9:20 PM EST Dallas Camejo MD POINT OF CARE TEST O RDERABLES HOSPITAL LAB See Below * (ABNORMAL) Blood Culture ID PCR Panel (11/02/2024 8:00 PM EST) [facility] BC ID PCR Result Summary Enterococcus faecalis Vancomycin resistance gene detected by molecular method. Please refer to detailed susceptibility results when available and suggest consultation with Infectious Diseases for management. 11/03/2024 6:06 PM [facility] BC ID PCR Result Summary Enterococcus faecium Vancomycin resistance gene detected by molecular method. Please refer to detailed susceptibility results when available and suggest consultation with Infectious Diseases for management. 11/03/2024 6:06 PM [facility] BC ID PCR Result Summary Methicillin Resistant Staph aureus (MRSA) 11/03/2024 6:06 PM [facility] Methicillin resistance gene mecA/C Detected(A) 11/03/2024 6:06 PM [facility] Vancomycin resistance genes Eugenia/B Detected(A) 11/03/2024 6:06 PM [facility] Enterococcus faecalis Detected(A) 11/03/2024 6:06 PM [facility] Enterococcus faecium Detected(A) 11/03/2024 6:06 PM [facility] Listeria monocytogenes Not Detected 11/03/2024 6:06 PM [facility] Staphylococcus Detected(A) 6:06 PM [facility] Staphylococcus aureus Detected(A) 11/03/2024 6:06 PM [facility] Staphylococcus epidermidis Not Detected 11/03/2024 6:06 PM [facility] Staphylococcus lugdunensis Not Detected 11/03/2024 6:06 PM [facility] Streptococcus Not Detected 6:06 PM [facility] Streptococcus agalactiae Not Detected 11/03/2024 6:06 PM [facility] Streptococcus pneumoniae Not Detected 11/03/2024 6:06 PM [facility] Streptococcus pyogenes Not Detected 11/03/2024 6:06 PM [facility] Acinetobacter calcoaceticus-bauma nnii complex Not Detected 11/03/2024 6:06 PM [facility] Bacteroides fragilis Not Detected 11/03/2024 6:06 PM [facility] Enterobacterales Not Detected 2024 6:06 PM [facility] Enterobacter cloacae complex Not Detected 11/03/2024 6:06 PM [facility] Escherichia coli Not Detected 2024 6:06 PM [facility] Klebsiella aerogenes Not Detected 11/03/2024 6:06 PM [facility] Klebsiella oxytoca Not Detected 01/2025 6:06 PM [facility] Klebsiella pneumoniae group Not Detected 11/03/2024 6:06 PM [facility] Proteus Not Detected 11/03/2024 6:06 PM [facility] Salmonella Not Detected 11/03/2024 6:06 PM [facility] Serratia marcescens Not Detected 01/2025 6:06 PM [facility] Haemophilus influenza Not Detected 11/03/2024 6:06 PM [facility] Neisseria meningitidis Not Detected 11/03/2024 6:06 PM [facility] Pseudomonas aeruginosa Not Detected 11/03/2024 6:06 PM [facility] Stenotrophomonas maltophilia Not Detected 11/03/2024 6:06 PM [facility] Fernanda albicans Not Detected 2024 6:06 PM [facility] Fernanda auris Not Detected 6:06 PM [facility] Fernanda glabrata Not Detected 2024 6:06 PM [facility] Fernanda krusei Not Detected 11/03/19 6:06 PM EST [facility] Fernanda parapsilosis Not Detected 11/03/2024 6:06 PM [facility] Cryptococcus neoformans/gattii Not Detected 11/03/2024 6:06 PM [facility] PCR ID Comment Antimicrobial resistance can occur via multiple mechanisms. A Not Detected result for antimicrobial resistance gene(s) does not indicate antimicrobial susceptibility. Subculturing is required for species identification and susceptibility testing of isolates. 11/03/2024 6:06 PM [facility] 11/02/2024 8:00 PM EST 11/02/2024 8:29 PM EST Kenzie PATTON MICROBIOLOGY - GENE RAL ORDERABLES [facility] [address] [place] [address], * (ABNORMAL) Erythrocyte Sedimentation Rate (ESR) (11/02/2024 8:00 PM EST) Erythrocyte Sediment Rate (ESR) 79(H) <20 MM/HR 11/02/2024 8:51 PM [facility] Blood specimen / Unknown 11/02/2024 8:00 PM EST 11/02/2024 8:22 PM EST Kenzie PATTON LAB BLOOD ORDERABLE S Performing Organization Address City/[facility]/ZIP Co de Phone Number [address] [address], [address] [address] * (ABNORMAL) C-REACTIVE PROTEIN (11/02/2024 8:00 PM EST) C-Reactive Protein 29.62(H) 0 - 0.49 mg/dL 11/03/2024 12:04 AM [facility] Plasma/Serum 11/02/2024 8:00 PM EST 11/02/2024 8:22 PM EST Kenzie PATTON LAB BLOOD ORDERABLE S [address] [address], [address] [address] * (ABNORMAL) BLOOD CULTURE Peripheral (11/02/2024 8:00 PM EST) Gram stain suggestive of Gram positive cocci 11/03/2024 3:55 PM EST [facility] Culture Methicillin Resistant Staph aureus (MRSA) Aerobic and Anaerobic bottle positive. Complete identification and susceptibility of the same isolate, if appropriate, performed on only one blood culture collection per day. (A) 11/06/2024 12:15 PM [facility] Culture Enterococcus faecalis Aerobic and Anaerobic bottle positive. Complete identification and susceptibility of the same isolate, if appropriate, performed on only one blood culture collection per day. (A) 11/06/2024 12:15 PM [facility] Microbiology Peripheral blood specimen / Unknown 11/02/2024 8:00 PM EST 11/02/2024 8:28 PM EST Kenzie PATTON LAB AMB MICRO ORDER JOSE [facility] [address] [place] [address], * (ABNORMAL) BLOOD CULTURE Peripheral (11/02/2024 8:00 PM EST) Gram stain suggestive of Gram positive cocci 11/03/2024 3:50 PM [facility] Culture Methicillin Resistant Staph aureus (MRSA) Aerobic and Anaerobic bottle positive. (A) 11/05/2024 1:52 PM [facility] Culture Enterococcus faecalis Aerobic and Anaerobic bottle positive. (A) 11/05/2024 1:52 PM [facility] Culture Enterococcus faecium Anaerobic bottle positive. (A) 11/05/2024 1:52 PM [facility] Microbiology Peripheral blood specimen / Unknown 11/02/2024 8:00 PM EST 11/02/2024 8:29 PM EST Narrative Organism Antibiotic Method Susceptibility Methicillin Resistant Staph aureus (MRSA) Cefazolin (REPORT) BACTERIAL PATTI AND INTERPRETATION (MCG/ML) 16: Resistant Methicillin Resistant Staph aureus (MRSA) Clindamycin (REPORT) BACTERIAL PATTI AND INTERPRETATION (MCG/ML) <=0.5: Susceptible Comment:Clindamycin result was confirmed by D-test. Methicillin Resistant Staph aureus (MRSA) Daptomycin (REPORT) BACTERIAL PATTI AND INTERPRETATION (MCG/ML) 1: Susceptible Methicillin Resistant Staph aureus (MRSA) Erythromycin (REPORT) BACTERIAL PATTI AND INTERPRETATION (MCG/ML) <=0.25: Susceptible Methicillin Resistant Staph aureus (MRSA) Minocycline (REPORT) BACTERIAL PATTI AND INTERPRETATION (MCG/ML) 8: Intermediate Methicillin Resistant Staph aureus (MRSA) Oxacillin (REPORT) BACTERIAL PATTI AND INTERPRETATION (MCG/ML) >4: Resistant Methicillin Resistant Staph aureus (MRSA) Tetracycline (REPORT) BACTERIAL PATTI AND INTERPRETATION (MCG/ML) >8: Resistant Methicillin Resistant Staph aureus (MRSA) Vancomycin (REPORT) BACTERIAL PATTI AND INTERPRETATION (MCG/ML) 1: Susceptible Methicillin Resistant Staph aureus (MRSA) Trimethoprim/Sulfameth oxazole (REPORT) BACTERIAL PATTI AND INTERPRETATION (MCG/ML) Susceptible Comment:Trimeth/Sulf a susceptibility performed by disk diffusion. Enterococcus faecalis Ampicillin (REPORT) BACTERIAL PATTI AND INTERPRETATION (MCG/ML) 2: Susceptible Enterococcus faecalis Daptomycin (REPORT) BACTERIAL PATTI AND INTERPRETATION (MCG/ML) 2: Susceptible Enterococcus faecalis Gentamicin (REPORT) BACTERIAL PATTI AND INTERPRETATION (MCG/ML) <=500: Susceptible Comment:For serious enterococcal infections, combination therapy using either ampicillin or vancomycin if susceptible PLUS an aminoglycoside is usually indicated. Enterococcus faecalis Penicillin (REPORT) BACTERIAL PATTI AND INTERPRETATION (MCG/ML) 4: Susceptible Enterococcus faecalis Vancomycin (REPORT) BACTERIAL PATTI AND INTERPRETATION (MCG/ML) 1: Susceptible Enterococcus faecium Ampicillin (REPORT) BA CTERIAL PATTI AND INTERPRETATION (MCG/ML) >8: Resistant Enterococcus faecium Daptomycin (REPORT) BA CTERIAL PATTI AND INTERPRETATION (MCG/ML) 4: Susceptible dose dependent Comment: Isolates interpreted as susceptible dose dependent (SDD) are treatable in adults with a higher than standard dose of this antibiotic. For daptomycin, SDD is based on a dosage regimen of 8 to 12 mg/kg per day in adults, adjusted for renal dysfunction, and is intended for serious infections due to Enterococcus spp. Consultation with an infectious diseases specialist is recommended for selection of optimal doses. ?? For pediatric patients, it is uncertain if bactericidal concentrations at these doses is possible. ??If necessary to use this medication, please reach out to the Antimicrobial Stewardship team. Enterococcus faecium Gentamicin (REPORT) BA CTERIAL PATTI AND INTERPRETATION (MCG/ML) <=500: Susceptible Enterococcus faecium Penicillin (REPORT) BA CTERIAL PATTI AND INTERPRETATION (MCG/ML) >16: Resistant Enterococcus faecium Vancomycin (REPORT) BA CTERIAL PATTI AND INTERPRETATION (MCG/ML) <=0.5: Susceptible Kenzie PATTON LAB AMB MICRO ORDER JOSE [facility] [address] * Vitamin D, 25-Hydroxy (11/02/2024 8:00 PM EST) Vitamin D, 25-Hydroxy 50 30 - 100 ng/mL 11/02/2024 9:10 PM EST [facility] Blood (Plasma/Serum) 11/02/2024 8:00 PM EST 11/02/2024 8:23 PM EST Kenzie PATTON LAB BLOOD ORDERABLE S Performing Organization Address [facility] [place] [address], [place] [address] * (ABNORMAL) TRANSFERRIN (11/02/2024 8:00 PM EST) Transferrin 178(L) 200 - 360 mg/dL 11/03/2024 12:04 AM EST [facility] Blood (Plasma/Serum) 11/02/2024 8:00 PM EST 11/02/2024 8:22 PM EST Kenzie PATTON LAB BLOOD ORDERABLE S Performing Organization Address [facility] [place] [address], [place] [address] * (ABNORMAL) Prealbumin (11/02/2024 8:00 PM EST) Prealbumin 7(L) 20 - 40 mg/dL 11/03/2024 12:04 AM [facility] Blood (Plasma/Serum) 11/02/2024 8:00 PM EST 11/02/2024 8:22 PM EST Sagrario Taylor PATTON [place] [address], [place] [address] * (ABNORMAL) Albumin (11/02/2024 8:00 PM EST) Albumin 3.2(L) 3.4 - 4.8 g/dL 11/03/2024 12:04 AM [facility] Blood (Plasma/Serum) 11/02/2024 8:00 PM EST 11/02/2024 8:22 PM EST Kenzie PATTON LAB BLOOD ORDERABLE S Performing Organization Address City/[facility]/[place] [address], [place] [address] * (ABNORMAL) Protime-INR (Routine) (11/02/2024 8:00 PM EST) Anticoagulant APIXABAN (ELIQUIS) 11/02/2024 6:26 PM EST Prothrombin Time (PT) 14.7(H) 10.0 - 13.5 seconds 11/02/2024 9:05 PM [facility] INR 1.3 11/02/2024 9:05 PM [facility] Comment:INR Therapeutic Rang es: Standard dose anticoagulant 2.0 to 3.0, High dose anticoagulant 2.5-3.5. Blood Plasma specimen / Unknown 11/02/2024 8:00 PM EST 11/02/2024 8:22 PM EST Sagrario Taylor PATTON [place] [address], [place] [address] * (ABNORMAL) Basic Metabolic Panel (STAT) (11/02/2024 8:00 PM EST) Glucose 171(H) 65 - 99 mg/dL 11/03/2024 12:04 AM [facility] Comment:Fasting: <100 mg/dL, Non-Fasting: <200 mg/dL (ADA 2004) Blood Urea Nitrogen (BUN) 41(H) 8 - 21 mg/dL 11/03/2024 12:04 AM [facility] Creatinine 2.0(H) 0.5 - 1.3 mg/dL 11/03/2024 12:04 AM [facility] eGFR 37(L) >59 11/03/2024 12:04 AM [facility] Comment:CKD-EPI (2020) in mL /min/1.73 sq meters. Sodium 130(L) 136 - 145 mmol/L 11/03/2024 12:04 AM [facility] Potassium 4.0 3.4 - 5.3 mmol/L 11/03/2024 12:04 AM [facility] Chloride 92(L) 98 - 107 mmol/L 11/03/2024 12:04 AM [facility] CO2 19(L) 22 - 33 mmol/L 11/03/2024 12:04 AM [facility] Anion Gap 19(H) 7 - 17 11/03/2024 12:04 AM [facility] Calcium 8.5(L) 8.7 - 10.5 mg/dL 11/03/2024 12:04 AM [facility] BUN/Creatinine Ratio 21 10.0 - 25.0 Ratio 11/03/2024 12:04 AM [facility] Blood (Plasma/Serum) 11/02/2024 8:00 PM EST 11/02/2024 8:22 PM EST Kenzie PATTON [place] [address], [facility] [address] [place] [address] * (ABNORMAL) Complete Blood Count WITH Differential - STAT (11/02/2024 8:00 PM EST) [facility] Signature White Blood Cell Count 14.3(H) 4.0 - 11.0 Thou/uL 11/02/2024 8:32 PM [facility] Platelet Count 395 150 - 450 Thou/uL 11/02/2024 8:32 PM [facility] Hemoglobin 9.3(L) 13.0 - 17.7 g/dL 11/02/2024 8:32 PM [facility] Hematocrit 29.3(L) 39.0 - 54.0 % 11/02/2024 8:32 PM [facility] Red Blood Cell Count 3.20(L) 4.50 - 6.20 Mil/uL 11/02/2024 8:32 PM [facility] MCV 92 80 - 100 fL 11/02/2024 8:32 PM [facility] MCH 29.1 27.0 - 31.0 pg 11/02/2024 8:32 PM [facility] MCHC 31.7 30.0 - 36.0 g/dL 11/02/2024 8:32 PM [facility] RDW 16.1(H) 11.5 - 14.5 % 11/02/2024 8:32 PM [facility] MPV 9.5 7.5 - 12.5 fL 11/02/2024 8:32 PM [facility] Neutrophils Auto 81.9 % 11/02/19 8:32 PM [facility] Immature Granulocytes 0.6 % 11/02/2024 8:32 PM [facility] Lymphocytes Auto 4.8 % 11/02/19 8:32 PM [facility] Monocytes Auto 12.2 % 11/02/2024 8:32 PM [facility] Eosinophils Auto 0.1 % 11/02/19 8:32 PM [facility] Basophils Auto 0.4 % 11/02/2024 8:32 PM [facility] Abs Neutrophils Auto 11.67(H) 2.00 - 7.50 Thou/uL 11/02/2024 8:32 PM [facility] Abs Immature Granulocytes 0.08 0.00 - 0.10 Thou/uL 11/02/2024 8:32 PM [facility] Abs Lymphocytes Auto 0.69(L) 1.50 - 4.50 Thou/uL 11/02/2024 8:32 PM [facility] Abs Monocytes Auto 1.74(H) 0.20 - 1.50 Thou/uL 11/02/2024 8:32 PM [facility] Abs Eosinophils Auto 0.02 0.00 - 0.70 Thou/uL 11/02/2024 8:32 PM [facility] Abs Basophils Auto 0.05 0.00 - 0.20 Thou/uL 11/02/2024 8:32 PM [facility] Blood Blood specimen / Unknown 11/02/2024 8:00 PM EST 11/02/2024 8:22 PM EST [facility] BLOOD ORDERABLE S Performing Organization Address City/State/[facility] [place] [address], [place] [address] * Type and Screen (11/02/2024 7:56 PM EST) ABO/Rh A POSITIVE 11/02/2024 10:22 PM [facility] Antibody Screen NEGATIVE 11/02/2024 10:22 PM [facility] Specimen Expiration 11/05/2024 11/02/2024 10:22 PM [facility] Unit Number [id number] 11/04/2024 6:58 AM [facility] Blood Component Type LEUKOREDUCED RED CELLS 11/04/2024 6:58 AM [facility] Unit Division 11/04/2024 6:58 AM [facility] Unit Status REL FROM ALLOC 9:33 PM [facility] Transfusion Status OK TO TRANSFUSE 11/04/2024 6:58 AM [facility] Crossmatch Result Electronically Compatible 11/04/2024 6:58 AM [facility] Unit Number [id number] 11/04/2024 6:58 AM [facility] Blood Component Type LEUKOREDUCED RED CELLS 11/04/2024 6:58 AM [facility] Unit Division 00 11/04/2024 6:58 AM EST [facility] Unit Status REL FROM ALLOC 9:33 PM EST [facility] Transfusion Status OK TO TRANSFUSE 11/04/2024 6:58 AM EST [facility] Crossmatch Result Electronically Compatible 11/04/2024 6:58 AM EST [facility] Blood Blood specimen / Unknown 11/02/2024 7:56 PM EST 11/02/2024 8:51 PM EST Comment:Blood [facility] BLOOD BANK [facility] See Below [address] [address] * (ABNORMAL) POCT Glucose, Fingerstick (11/02/2024 6:48 PM EST) POC Glucose 192(H) 65 - 99 mg/dL 11/02/2024 6:49 PM EST Blood specimen / Unknown 11/02/2024 6:48 PM EST 11/02/2024 6:49 PM EST Dallas Camejo MD POINT [facility] CARE [facility] See Below documented in this encounter Visit Diagnoses Diagnosis Acute osteomyelitis of left calcaneus (HCC)- Primary Acute osteomyelitis of left calcaneus (HCC) Pacemaker infection, subsequent encounter Endocarditis Endocarditis, valve unspecified, unspecified cause Acute bacterial conjunctivitis of right eye Bacteremia A-fib (HCC) Atrial fibrillation Chronic diastolic congestive heart failure (HCC) CKD (chronic kidney disease) Chronic kidney disease, unspecified Diabetes (HCC) Type II or unspecified type diabetes mellitus without mention of complication, not stated as uncontrolled HTN (hypertension) Unspecified essential hypertension Hyperlipidemia Other and unspecified hyperlipidemia MERVIN on CPAP Osteomyelitis (HCC) Unspecified osteomyelitis, site unspecified PAD (peripheral artery disease) Unspecified peripheral vascular disease Smoker Tobacco use disorder Stage 3a chronic kidney disease (CKD) (HCC) Bacteremia Presence of permanent cardiac pacemaker 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 Notify provider if a dose is held. Given 11/25/2024 9:35 AM EST 200 mg amLODIPine (NORVASC) tablet 5 mg 5 mg, Oral, Daily, First dose (after last modification) on Fri11/20/24 at 0900, Hold for SBP less than 100 mmHg. Notify provider if a dose is held. Given 11/25/2024 9:35 AM EST 5 mg aspirin enteric coated (ECOTRIN LOW STRENGTH) tablet 81 mg 81 mg, Oral, Daily, First dose on Fri11/22/24 at 1300, Do not crush, chew, or split tablet. Given 11/25/2024 9:35 AM EST 81 mg benzocaine-menthol (CHLORASEPTIC) 6-10 MG lozenge 1 lozenge 1 lozenge, Mouth/Throat, Every 2 hours PRN, sore throat, Starting on Fri11/17/24 at 1636, Allow lozenge to dissolve slowly in the mouth. bumetanide (BUMEX) tablet 2 mg 2 mg, Oral, Daily, First dose on Fri11/19/24 at 0930, Hold for SBP less than 100 mmHg. Notify provider if a dose is held. Given 11/25/2024 9:34 AM EST 2 mg buPROPion (WELLBUTRIN SR) 12 hr tablet 150 mg 150 mg, Oral, 2 times daily, First dose on Fri11/02/24 at 2000, Do not crush, chew, or split tablet. Given 11/25/2024 9:35 AM EST 150 mg calcium carbonate (TUMS) chewable tablet 1,000 mg 1,000 mg, Oral, Every 12 hours PRN, indigestion, heartburn, Starting on Fri11/02/24 at 1822 Given 11/24/2024 8:14 AM EST 1,000 mg calcium citrate (CALCITRATE) tablet 950 mg 950 mg, Oral, 2 times daily with meals, First dose on Fri11/06/24 at 0800, Calcium Citrate 950 mg = Elemental Calcium 200 mg Given 11/25/2024 9:35 AM EST 950 mg carboxymethylcellulose (REFRESH PLUS) 0.5 % ophthalmic solution 2 drop 2 drop, Each Eye, Every 2 hours PRN, dry eyes, Starting on Fri11/17/24 at 1636 cefTRIAXone (ROCEPHIN) 2 g in sodium chloride-MBP (NS) 100 mL IVPB-MBP 2 g, Intravenous, at 200 mL/hr, Every 24 hours, First dose on Fri11/18/24 at 1130, All antimicrobials used at [facility] require an indication. Please complete the following documentation. Bacterial Infection Documented, Type of Therapy: New Therapy, Indication: Bacteremia New Bag 11/25/2024 11:13 AM EST 2 g 200 mL/hr chlorhexidine gluconate 2 % wipes - urethral catheter CHG application Topical, Daily, First dose on Fri11/17/24 at 1500, Each pack = 6 wipes. Dose = 1 each. Given 11/25/2024 9:51 AM EST 1 each cholecalciferol tablet 2,000 Units 2,000 Units, Oral, Daily, First dose on Fri11/05/24 at 1930, Note: Cholecalciferol 1,000 units = 25 mcg Given 11/25/2024 9:34 AM EST 2,000 Units cyanocobalamin (VITAMIN B-12) tablet 2,500 mcg 2,500 mcg, Oral, Daily, First dose on Fri11/02/24 at 1900 Given 11/25/2024 9:32 AM EST 2,500 mcg DAPTOmycin (CUBICIN) 975 mg in sodium chloride (NS) 0.9 % 50 mL IVPB 975 mg (rounded from 973 mg = 10 mg/kg ? 97.3 kg Adjusted weight), Intravenous, Administer over 30 Minutes, Every 24 hours, First dose on Fri11/03/24 at 0900, You have selected a restricted antimicrobial, please complete the following required documentation. Bacterial Infection Documented, Type of Therapy: New Therapy, Indication: Osteomyelitis, Please document the authorizing Infectious Disease provider: Infectious Disease Physician, Specify Approving Provider: physician New Bag 11/25/2024 12:34 PM EST 975 mg 139 mL/hr donepezil (ARICEPT) tablet 10 mg 10 mg, Oral, Every morning, First dose on Fri11/03/24 at 0800 Given 11/25/2024 9:35 AM EST 10 mg empagliflozin (JARDIANCE) 25 mg 25 mg, Oral, Daily, First dose on Fri11/03/24 at 0900 Given 11/25/2024 9:35 AM EST 25 mg erythromycin (ILOTYCIN) ophthalmic ointment 1 application(s) 1 application(s), Right Eye, 4 times daily, First dose on Fri11/24/24 at 1330, For 5 days, Instill 1/2 inch ribbon to specified eye(s). For neonates instill 1/2 centimeter ribbon to specified eye(s). Given 11/25/2024 12:37 PM EST 1 application(s ) folic acid (FOLVITE) tablet 1 mg 1 mg, Oral, Daily, First dose on Fri11/05/24 at 1700 Given 11/25/2024 9:34 AM EST 1 mg glimepiride (AMARYL) tablet 2 mg 2 mg, Oral, Daily with breakfast, First dose on Fri11/03/24 at 0800 Given 11/25/2024 9:35 AM EST 2 mg heparin (porcine) 5000 unit/mL injection 5,000 Units 5,000 Units, Subcutaneous, Every 8 hours scheduled, First dose on Fri11/09/24 at 1400, For subcutaneous use the injection sites should be rotated (usually left and right portions of the abdomen, above iliac crest). Given 11/25/2024 9:31 AM EST 5,000 Units Abdominal Tissue heparin 1000 units/500 mL NS flush for catheter PREMIX Continuous PRN, Starting on Fri11/19/24 at 1402, Intra-Procedure (IR) New Bag 11/19/2024 2:02 PM EST 500 mL insulin glargine (LANtus/SEMGLEE) 100 units/mL injection 10 Units 10 Units, Subcutaneous, Daily, First dose (after last modification) on Fri11/18/24 at 0900 Given 11/25/2024 9:33 AM EST 10 Units Left Arm insulin lispro (HumaLOG/ADMELOG) 100 units/mL injection 1-6 Units 1-6 Units, Subcutaneous, 3 times daily with meals, First dose on Fri11/15/24 at 1200, DO NOT HOLD IF NPO Notify provider if Blood Glucose LESS than 70 For BG 141-180 administer 1 unit For BG 181-220 administer 2 units For BG 221-260 administer 3 units For BG 261-300 administer 4 units For BG 301-340 administer 5 units For BG MORE than 340, administer 6 units AND notify provider Given 11/25/2024 9:00 AM EST 1 Units Left Arm insulin lispro (HumaLOG/ADMELOG) 100 units/mL injection 3 Units 3 Units, Subcutaneous, 3 times daily with meals, First dose (after last modification) on Fri11/15/24 at 1200, HOLD IF NPO Given 11/25/2024 12:33 PM EST 3 Units Right Arm ipratropium-albuterol (DUONEB) 0.5-2.5 mg/3 mL nebulizer solution 3 mL 3 mL, Nebulization, Every 2 hours PRN, wheezing, shortness of breath, Starting on Fri11/07/24 at 0950, Albuterol expressed in base strength. Albuterol sulfate 3 mg = albuterol (base) 2.5 mg., Albuterol or Duoneb Indication: COPD, Initiate the Respiratory Therapist Driven Medication Management Protocol? This prompts the Respiratory Therapist to perform patient assessments and enter orders as deemed appropriate per the protocol. Yes Given 11/07/2024 10:25 AM EST 3 mL lidocaine (XYLOCAINE) 1 % injection As needed, Starting on Fri11/19/24 at 1415, Intra-Procedure (IR) Given 11/19/2024 2:15 PM EST 10 mL lidocaine-EPINEPHrine (XYLOCAINE/EPINEPHrine ) 1 %-1:[id number] injection As needed, Starting on Fri11/19/24 at 1415, Intra-Procedure (IR) Given 11/19/2024 2:15 PM EST 20 mL melatonin tablet 3 mg 3 mg, Oral, Nightly PRN, insomnia, Starting on Fri11/02/24 at 1828 Given 11/19/2024 10:22 PM EST 3 mg methocarbamol (ROBAXIN) tablet 1,000 mg 1,000 mg, Oral, 4 times daily, First dose (after last modification) on 11/06/24 at 1800 Given 11/25/2024 12:33 PM EST 1,000 mg metoPROLOL TARTRATE (LOPRESSOR) tablet 50 mg 50 mg, Oral, 2 times daily, First dose on Fri11/02/24 at 2100, Hold for HR less than 45 bpm and/or SBP less than 90 mmHg. Notify provider if a dose is held. Given 11/25/2024 9:35 AM EST 50 mg midazolam (VERSED) 1 mg/mL injection As needed, Starting on Fri11/19/24 at 1412, Intra-Procedure (IR) Given 11/19/2024 2:12 PM EST 0.5 mg multivitamin with minerals tablet 1 tablet 1 tablet, Oral, Daily, First dose on Fri11/05/24 at 1700 Given 11/25/2024 9:35 AM EST 1 tablet nicotine (NICODERM CQ) 21 MG/24HR patch 1 patch 1 patch, Transdermal, Daily, First dose on Fri11/05/24 at 0900, Apply new patch to nonhairy, clean, dry skin on the upper body or upper outer arm. Rotate sites. Do not use patch if damaged or cut., Remove Patch at Bedtime? No Patch Applied 11/25/2024 9:30 AM EST 1 patch Left Shoulder ondansetron (ZOFRAN) injection 4 mg 4 mg, Intravenous, Every 6 hours PRN, nausea, vomiting, Starting on Fri11/05/24 at 1912 Given 11/17/2024 4:39 PM EST 4 mg PANTOprazole (PROTONIX) EC tablet 40 mg 40 mg, Oral, Daily, First dose on Fri11/03/24 at 0900, *DO NOT CHEW OR CRUSH* Given 11/25/2024 9:35 AM EST 40 mg polyethylene glycol (miraLAx) packet 17 g 17 g, Oral, Daily, First dose (after last modification) on Fri11/17/24 at 1100, Stir and dissolve in 4-8 oz of fluids. Given 11/25/2024 9:32 AM EST 17 g pregabalin (LYRICA) capsule 100 mg 100 mg, Oral, 3 times daily, First dose (after last modification) on Fri11/17/24 at 1400 Given 11/25/2024 12:33 PM EST 100 mg senna-docusate (SENNA-S) 8.6-50 MG tablet 2 tablet 2 tablet, Oral, 2 times daily, First dose on Fri11/05/24 at 2100 Given 11/25/2024 9:36 AM EST 2 tablets thiamine mononitrate (VITAMIN B-1) tablet 200 mg 200 mg, Oral, Daily, First dose on Fri11/05/24 at 1700 Given 11/25/2024 9:34 AM EST 200 mg documented in this encounter Active and Recently Administered Medications Times are shown in EST. Scheduled Medication Order 11/23/2024 11/24/2024 11/25/2024 amiODARONE (PACERONE) tablet 200 mg 200 mg, Oral, Daily, First dose (after last modification) on Fri11/10/24 at 0900, Hold for HR less than 45 bpm and/or SBP less than 90 mmHg. Notify provider if a dose is held. 0852 (Given - Provider: Nelson Iqbal RN) 0815 (Given - Provider: Mitesh Caldwell RN) 0935 (Given - Provider: Mitesh Caldwell RN) amLODIPine (NORVASC) tablet 5 mg 5 mg, Oral, Daily, First dose (after last modification) on Fri11/20/24 at 0900, Hold for SBP less than 100 mmHg. Notify provider if a dose is held. 0853 (Given - Provider: Nelson Iqbal RN) 0829 (Given - Provider: Mitesh Caldwell RN) 0935 (Given - Provider: Mitesh Caldwell RN) aspirin enteric coated (ECOTRIN LOW STRENGTH) tablet 81 mg 81 mg, Oral, Daily, First dose on Fri11/22/24 at 1300, Do not crush, chew, or split tablet. 0852 (Given - Provider: Nelson Iqbal RN) 0815 (Given - Provider: Mitesh Caldwell RN) 0935 (Given - Provider: Mitesh Caldwell RN) bumetanide (BUMEX) tablet 2 mg 2 mg, Oral, Daily, First dose on Fri11/19/24 at 0930, Hold for SBP less than 100 mmHg. Notify provider if a dose is held. 0852 (Given - Provider: Nelson Iqbal RN) 0815 (Given - Provider: Mitesh Caldwell RN) 0934 (Given - Provider: Mitesh Caldwell RN) buPROPion (WELLBUTRIN SR) 12 hr tablet 150 mg 150 mg, Oral, 2 times daily, First dose on Fri11/02/24 at 2000, Do not crush, chew, or split tablet. 0852 (Given - Provider: Nelson Iqbal RN)2109 (Given - Provider: Marisel Wray RN) 0815 (Given - Provider: Mitesh Caldwell RN)2108 (Given - Provider: Agnieszka Torrez RN) 0935 (Given - Provider: Mitesh Caldwell RN) calcium citrate (CALCITRATE) tablet 950 mg 950 mg, Oral, 2 times daily with meals, First dose on Fri11/06/24 at 0800, Calcium Citrate 950 mg = Elemental Calcium 200 mg 0852 (Given - Provider: Nelson Iqbal RN)1729 (Given - Provider: Nelson Iqbal RN) 0814 (Given - Provider: Mitesh Caldwell RN)1753 (Given - Provider: Page Montemayor RN) 0935 (Given - Provider: Mitesh Caldwell RN)1700 (Not Given - Provider: Mitesh Caldwell RN - Reason: Patient/family refused) cefTRIAXone (ROCEPHIN) 2 g in sodium chloride-MBP (NS) 100 mL IVPB-MBP 2 g, Intravenous, at 200 mL/hr, Every 24 hours, First dose on Fri11/18/24 at 1130, All antimicrobials used at [facility] require an indication. Please complete the following documentation. Bacterial Infection Documented, Type of Therapy: New Therapy, Indication: Bacteremia 1041 (New Bag - Provider: Nelson Iqbal RN) 1228 (New Bag - Provider: Page Montemayor RN) 1113 (New Bag - Provider: Mitesh Caldwell RN)2151 (Due: Stopped) chlorhexidine gluconate 2 % wipes - urethral catheter CHG application Topical, Daily, First dose on Fri11/17/24 at 1500, Each pack = 6 wipes. Dose = 1 each. 0905 (Given - Provider: Nelson Iqbal RN) 0956 (Given - Provider: Page Montemayor RN) 0951 (Given - Provider: Mitesh Caldwell RN) cholecalciferol tablet 2,000 Units 2,000 Units, Oral, Daily, First dose on Fri11/05/24 at 1930, Note: Cholecalciferol 1,000 units = 25 mcg 0852 (Given - Provider: Nelson Iqbal RN) 0814 (Given - Provider: Mitesh Caldwell RN) 0934 (Given - Provider: Mitesh Caldwell RN) cyanocobalamin (VITAMIN B-12) tablet 2,500 mcg 2,500 mcg, Oral, Daily, First dose on Fri11/02/24 at 1900 0852 (Given - Provider: Nelson Iqbal RN) 0814 (Given - Provider: Mitesh Caldwell RN) 0932 (Given - Provider: Mitesh Caldwell RN) DAPTOmycin (CUBICIN) 975 mg in sodium chloride (NS) 0.9 % 50 mL IVPB 975 mg (rounded from 973 mg = 10 mg/kg ? 97.3 kg Adjusted weight), Intravenous, Administer over 30 Minutes, Every 24 hours, First dose on Fri11/03/24 at 0900, You have selected a restricted antimicrobial, please complete the following required documentation. Bacterial Infection Documented, Type of Therapy: New Therapy, Indication: Osteomyelitis, Please document the authorizing Infectious Disease provider: Infectious Disease Physician, Specify Approving Provider: physician 1408 (New Bag - Provider: Nelson Iqbal RN) 1347 (New Bag - Provider: Page Montemayor RN) 1234 (New Bag - Provider: Mitesh Caldwell RN)2151 (Due: Stopped) donepezil (ARICEPT) tablet 10 mg 10 mg, Oral, Every morning, First dose on Fri11/03/24 at 0800 1059 (Given - Provider: Nelson Iqbal RN) 0815 (Given - Provider: Mitesh Caldwell RN) 0935 (Given - Provider: Mitesh Caldwell RN) empagliflozin (JARDIANCE) 25 mg 25 mg, Oral, Daily, First dose on Fri11/03/24 at 0900 0853 (Given - Provider: Nelson Iqbal RN) 0816 (Given - Provider: Mitesh Caldwell RN) 0935 (Given - Provider: Mitesh Caldwell RN) erythromycin (ILOTYCIN) ophthalmic ointment 1 application(s) 1 application(s), Right Eye, 4 times daily, First dose on Fri11/24/24 at 1330, For 5 days, Instill 1/2 inch ribbon to specified eye(s). For neonates instill 1/2 centimeter ribbon to specified eye(s). 1503 (Given - Provider: Page Montemayor RN)1806 (Given - Provider: Page Montemayor RN)2109 (Given - Provider: Agnieszka Torrez RN) 0800 (Not Given - Provider: Mitesh Caldwell RN - Reason: Patient/family refused)1237 (Given - Provider: Mitesh Caldwell RN)1800 (Not Given - Provider: Mitesh Caldwell RN - Reason: Patient/family refused) folic acid (FOLVITE) tablet 1 mg 1 mg, Oral, Daily, First dose on Fri11/05/24 at 1700 0852 (Given - Provider: Nelson Iqbal RN) 0814 (Given - Provider: Mitesh Caldwell RN) 0934 (Given - Provider: Mitesh Caldwell RN) glimepiride (AMARYL) tablet 2 mg 2 mg, Oral, Daily with breakfast, First dose on Fri11/03/24 at 0800 0853 (Given - Provider: Nelson Iqbal RN) 0815 (Given - Provider: Mitesh Caldwell RN) 0935 (Given - Provider: Mitesh Caldwell RN) heparin (porcine) 5000 unit/mL injection 5,000 Units 5,000 Units, Subcutaneous, Every 8 hours scheduled, First dose on Fri11/09/24 at 1400, For subcutaneous use the injection sites should be rotated (usually left and right portions of the abdomen, above iliac crest). 0220 (Given - Provider: Ellyn Patel RN)0901 (Given - Provider: Nelson Iqbal RN)1728 (Given - Provider: Nelson Iqbal RN) 0257 (Given - Provider: Marisel Wray, JOSUE)0816 (Given - Provider: Mitesh Caldwell RN)1753 (Given - Provider: Page Montemayor RN) 0323 (Given - Provider: Marisel Wray RN)0931 (Given - Provider: Mitesh Caldwell RN)1700 (Not Given - Provider: Mitesh Caldwell RN - Reason: Patient/family refused) insulin glargine (LANtus/SEMGLEE) 100 units/mL injection 10 Units 10 Units, Subcutaneous, Daily, First dose (after last modification) on Fri11/18/24 at 0900 0901 (Given - Provider: Nelson Iqbal RN) 0816 (Given - Provider: Mitesh Caldwell RN) 0933 (Given - Provider: Mitesh Caldwell RN) insulin lispro (HumaLOG/ADMELOG) 100 units/mL injection 1-6 Units 1-6 Units, Subcutaneous, 3 times daily with meals, First dose on Fri11/15/24 at 1200, DO NOT HOLD IF NPO Notify provider if Blood Glucose LESS than 70 For BG 141-180 administer 1 unit For BG 181-220 administer 2 units For BG 221-260 administer 3 units For BG 261-300 administer 4 units For BG 301-340 administer 5 units For BG MORE than 340, administer 6 units AND notify provider 0749 (Not Given - Provider: Nelson Iqbal RN - Reason: Dose held per order parameters)1244 (Given - Provider: Nelson Iqbal RN)1730 (Not Given - Provider: Nelson Iqbal RN - Reason: Dose held per order parameters) 0813 (Hold - Provider: Page Montemayor RN - Reason: Dose held per order parameters - Comment: BS 103)1225 (Hold - Provider: Page Montemayor RN - Reason: Dose held per order parameters - Comment: 104)1702 (Hold - Provider: Page Montemayor RN - Reason: Dose held per order parameters - Comment: 105) 0900 (Given - Provider: Mitesh Caldwell RN)1219 (Not Given - Provider: Mitesh Caldwell RN - Reason: Dose held per order parameters)1730 (Not Given - Provider: Mitesh Caldwell RN - Reason: Patient/family refused) insulin lispro (HumaLOG/ADMELOG) 100 units/mL injection 3 Units 3 Units, Subcutaneous, 3 times daily with meals, First dose (after last modification) on Fri11/15/24 at 1200, HOLD IF NPO 0901 (Given - Provider: Nelson Iqbal RN)1245 (Given - Provider: Nelson Iqbal, JOSUE)1729 (Given - Provider: Nelson Iqbal RN) 0817 (Given - Provider: Mitesh Caldwell RN)1228 (Given - Provider: Page Montemayor RN)1753 (Given - Provider: Page Montemayor RN) 0905 (Given - Provider: Mitesh Caldwell RN)1233 (Given - Provider: Mitesh Caldwell RN)1730 (Not Given - Provider: Mitesh Caldwell RN - Reason: Patient/family refused) methocarbamol (ROBAXIN) tablet 1,000 mg 1,000 mg, Oral, 4 times daily, First dose (after last modification) on Fri11/06/24 at 1800 0853 (Given - Provider: Nelson Iqbal RN)1406 (Given - Provider: Nelson Iqbal RN)1728 (Given - Provider: Nelson Iqbal RN)2108 (Given - Provider: Marisel Wray RN) 0815 (Given - Provider: Mitesh Caldwell RN)1351 (Given - Provider: Page Montemayor RN)1900 (Already Given - See Override Pulls - Provider: Marisel Wray RN)2107 (Given - Provider: Agnieszka Torrez RN) 0934 (Given - Provider: Mitesh Caldwell RN)1233 (Given - Provider: Mitesh Caldwell RN)1800 (Not Given - Provider: Mitesh Caldwell RN - Reason: Patient/family refused) metoPROLOL TARTRATE (LOPRESSOR) tablet 50 mg 50 mg, Oral, 2 times daily, First dose on Fri11/02/24 at 2100, Hold for HR less than 45 bpm and/or SBP less than 90 mmHg. Notify provider if a dose is held. 0852 (Given - Provider: Nelson Iqbal RN)2109 (Given - Provider: Marisel Wray RN) 0815 (Given - Provider: Mitesh Caldwell RN)2108 (Given - Provider: Agnieszka Torrez RN) 0935 (Given - Provider: Mitseh Caldwell RN) multivitamin with minerals tablet 1 tablet 1 tablet, Oral, Daily, First dose on Fri11/05/24 at 1700 0853 (Given - Provider: Nelson Iqbal RN) 0814 (Given - Provider: Mitesh Caldwell RN) 0935 (Given - Provider: Mitesh Caldwell RN) nicotine (NICODERM CQ) 21 MG/24HR patch 1 patch 1 patch, Transdermal, Daily, First dose on Fri11/05/24 at 0900, Apply new patch to nonhairy, clean, dry skin on the upper body or upper outer arm. Rotate sites. Do not use patch if damaged or cut., Remove Patch at Bedtime? No 0859 (Patch Removed - Provider: Nelson Iqbal RN)0903 (Patch Applied - Provider: Nelson Iqbal RN) 0826 (Patch Removed - Provider: Mitesh Caldwell RN)0829 (Patch Applied - Provider: Mitesh Caldwell RN) 0925 (Patch Removed - Provider: Mitesh Caldwell RN)0930 (Patch Applied - Provider: Mitesh Caldwell RN)1950 (Due: Patch Removed - Provider: Automatic Discharge Provider - Comment: Time automatically adjusted from order being discontinued) PANTOprazole (PROTONIX) EC tablet 40 mg 40 mg, Oral, Daily, First dose on Fri11/03/24 at 0900, *DO NOT CHEW OR CRUSH* 0852 (Given - Provider: Nelson Iqbal RN) 0815 (Given - Provider: Mitesh Caldwell RN) 0935 (Given - Provider: Mitesh Caldwell RN) polyethylene glycol (miraLAx) packet 17 g 17 g, Oral, Daily, First dose (after last modification) on Fri11/17/24 at 1100, Stir and dissolve in 4-8 oz of fluids. 0851 (Given - Provider: Nelson Iqbal RN) 0816 (Given - Provider: Mitesh Caldwell RN) 0932 (Given - Provider: Mitesh Caldwell RN) pravastatin (PRAVACHOL) tablet 20 mg 20 mg, Oral, Daily, First dose on Fri11/03/24 at 0900, On hold since Fri11/03/2024 at 0850 until manually unheld 0900 (Hold - Provider: Nelson Iqbal RN - Reason: See Provider Order) 0900 (Hold - Provider: Page Montemayor RN - Reason: See Provider Order) 0900 (Not Given - Provider: Mitesh Caldwell RN - Reason: See Provider Order)2151 (Provider Unheld - Provider: Automatic Discharge Provider) pregabalin (LYRICA) capsule 100 mg 100 mg, Oral, 3 times daily, First dose (after last modification) on Fri11/17/24 at 1400 0852 (Given - Provider: Nelson Iqbal, JOSUE)1407 (Given - Provider: Nelson Iqbal RN)2108 (Given - Provider: Marisel Wray RN) 0815 (Given - Provider: Mitesh Caldwell RN)1351 (Given - Provider: Page Montemayor RN)2108 (Given - Provider: Agnieszka Torrez RN) 0935 (Given - Provider: Mitesh Caldwell RN)1233 (Given - Provider: Mitesh Caldwell RN) senna-docusate (SENNA-S) 8.6-50 MG tablet 2 tablet 2 tablet, Oral, 2 times daily, First dose on Fri11/05/24 at 2100 0853 (Given - Provider: Nelson Iqbal RN)2112 (Given - Provider: Marisel Wray, JOSUE) 0814 (Given - Provider: Mitesh Caldwell RN)210 (Given - Provider: Agnieszka Torrez RN) 0936 (Given - Provider: Mitesh Caldwell, JOSUE) thiamine mononitrate (VITAMIN B-1) tablet 200 mg 200 mg, Oral, Daily, First dose on Fri11/05/24 at 1700 1041 (Given - Provider: Nelson Iqbal RN) 0814 (Given - Provider: Mitesh Caldwell RN) 0934 (Given - Provider: Mitesh Caldwell RN) PRN Medication Order 11/23/2024 11/24/2024 11/25/2024 acetaminophen (TYLENOL) tablet 975 mg 975 mg, Oral, Every 6 hours PRN, mild pain 1-3, fever greater than 101.5, Starting on Fri11/17/24 at 1757, May use for pain when patient is tolerating PO benzocaine-menthol (CHLORASEPTIC) 6-10 MG lozenge 1 lozenge 1 lozenge, Mouth/Throat, Every 2 hours PRN, sore throat, Starting on Fri11/17/24 at 1636, Allow lozenge to dissolve slowly in the mouth. bisacodyl (DULCOLAX) suppository 10 mg 10 mg, Rectal, Daily PRN, constipation, Use Day 2 as needed, Starting on Fri11/05/24 at 1912 calcium carbonate (TUMS) chewable tablet 1,000 mg 1,000 mg, Oral, Every 12 hours PRN, indigestion, heartburn, Starting on Fri11/02/24 at 1822 0814 (Given - Provider: Alexey Caldwell RN) carboxymethylcellulose (REFRESH PLUS) 0.5 % ophthalmic solution 2 drop 2 drop, Each Eye, Every 2 hours PRN, dry eyes, Starting on Fri11/17/24 at 1636 ipratropium-albuterol (DUONEB) 0.5-2.5 mg/3 mL nebulizer solution 3 mL 3 mL, Nebulization, Every 2 hours PRN, wheezing, shortness of breath, Starting on Fri11/07/24 at 0950, Albuterol expressed in base strength. Albuterol sulfate 3 mg = albuterol (base) 2.5 mg., Albuterol or Duoneb Indication: COPD, Initiate the Respiratory Therapist Driven Medication Management Protocol? This prompts the Respiratory Therapist to perform patient assessments and enter orders as deemed appropriate per the protocol. Yes lactulose (ENULOSE) 10 gm/15 mL solution 20 g 20 g, Oral, Every 4 hours PRN, constipation, Use if other oral laxatives are not effective, Starting on Fri11/05/24 at 1912 melatonin tablet 3 mg 3 mg, Oral, Nightly PRN, insomnia, Starting on Fri11/02/24 at 1828 naloxone (NARCAN) 0.4 mg/mL injection 0.4 mg 0.4 mg, Intravenous, Every 5 min PRN, opioid reversal, respiratory depression, Starting on Fri11/05/24 at 1912, If respiratory rate is less than 8 breaths/minute or patient is difficult to arouse. Stop all narcotics and contact provider. naloxone (NARCAN) 0.4 mg/mL injection 0.4 mg 0.4 mg, Intravenous, Every 5 min PRN, opioid reversal, respiratory depression, Starting on Fri11/17/24 at 1757, If respiratory rate is less than 8 breaths/minute or patient is difficult to arouse. Stop all narcotics and contact provider. 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/10/24 09/16/2024 09/16/2024 11/24/2024 3:08 P M EST R/O Respiratory Disease 11/07/2024 11/07/202410/30 7:06 AM EST R/O Respiratory Disease 11/23/2024 11/23/202410/31 12:00 PM EST documented as of this encounter Care Teams Christmas Tree Farm Manager Relationship Specialty Start Date End Date Lee Fabian MD [address] [place] [address] PCP - General Internal Medicine 09/02/24 Vitaliy Fields MD [address] [place] [address] Cardiovascular Disease 09/02/24 Dallas Camejo MD [address] [place] [address] Surgery, Orthopedic 09/02/24 Rolando Lopez MD [address] - [address] [place] [address] Physician Nephrology 09/02/24 Cesar Fair MD 85 [facility] 919 [place], [place] [phone] Surgery, Cardiac 11/08/24 Daisy Her, PT 85 [facility] [address] [place] [phone] Document Management ConsultantOverhead Cleaner Medicine and Rehabilitation 11/18/24 documented as of this encounter
--- OUTSIDE RECORDS SUMMARY | 2024-12-02 10:37 | XMS_ITS | Encounter Summary ---
Author Organization [facility] Address [address] [place] [address] Care Team Providers Care Creative Writer Name Role Phone Lee Fabian MD Primary Care Provider Vitaliy Fields MD Unavailable [phone] Dallas Camejo MD Unavailable Rolando Lopez MD Unavailable Cesar Fair MD Unavailable Daisy Her PT Unavailable [phone] Encounter Details Date Type Department Care Team (Late st Contact Info) Description 12/01/2024 Documentation [facility] Physical Medicine and Rehab [address] [address] Daisy Her, PT 85 [facility] [address] [place] [address] [phone] Social History Tobacco Use Types Packs/Day Years Used Date Smoking Tobacco: Former Cigarettes 1 29.2 1 7 - 2003 Smokeless Tobacco: Never Alcohol Use Standard Drinks/Week Comments Yes 21 (1 standard drink = 0.6 oz pu re alcohol) [facility] Utilities Answer Date Recorded In the past 12 months has [employer], gas, oil, or water [employer] threatened to shut off services in your [...] any time in the past 12 m [facility], were you homeless or living in a penitentiary (including now)? No 11/03/2024 Sex and Gender Information Value Date Recorded Sex Assigned at Male 09/03/2024 12:21 PM EST Gender Identity Male 09/03/2024 12:21 PM EST Sexual Orientation Heterosexual (straight) 09/10 7:58 AM EST documented as of this encounter Progress Notes * Daisy Her, PT - 12/01/2024 11:14 AM ESTSummary: PMR navigator touchpoint acute RODOLFO to home Reached out to patient for assessment of RODOLFO to home after acute stay post surgical amputation. They report home transition went well and home care therapies current with ample time and effort provided. Reviewed navigation role in coordinating PMR outpatient visit he feels that at this time he will continue to follow through with orthopedic associates and Dr. Camejo for care and does not need PMR care at this time. I EPIC messaged Dr. Camejo in regards to ortho taking over his care and orders for Datapower Developer and rehabilitation and to reach out to me or Laura King for any additional support for the patient. Pt reports no concerns or needs at this time for support but is anxious to get going on rehabilitation and walking with his prosthesis. He reports having an electric wheelchair but that is difficult to get around. He has my contact information and also told him I will continue to communicate with Laura King from [facility] [place] for any additional PMR needs or support. I will cancel his 12/15 prosthetic clinic appt today. documented in this encounter Plan of Treatment Upcoming Encounters Date Type Department Care Team (Late st Contact Info) Description 12/07/2024 1:30 PM EDT Appointment [facility] Heart & Vascular [place] - Electrophysiology [address] [place] [phone] Gretel Hinds, SCIENCE JOB TITLES [address] [address] 12/14/2024 2:00 PM EDT [facility] [address] [place] [address] Dallas Camejo MD [address] [place] [address] 12/16/2024 8:30 AM EDT Office Visit [facility] Infectious Disease [address] [place] [phone] Ena Mtz MD [address] [place] [phone] documented as of this encounter Visit Diagnoses Not on filedocumented in this encounter Care Teams Creative Writer Relationship Specialty Start Date End Date Lee Fabian MD [address] [place] [address] PCP - General Internal Medicine 09/02/24 Vitaliy Fields MD [address] [address] Cardiovascular Disease 09/02/24 Dallas Camejo MD [address] [place] [address] Surgery, Orthopedic 09/02/24 Rolando Lopez MD [address] Transplant - 14 [place] [address] Physician Nephrology 09/02/24 Cesar Fair MD [address] [phone] Surgery, Cardiac 11/08/24 Daisy Her, PT 85 [facility] [address] [place] [address] [phone] Outside MachinistCatering Cook Medicine and Rehabilitation 11/18/24 documented as of this encounter
--- OUTSIDE RECORDS SUMMARY | 2024-12-02 10:37 | XMS_ITS | Encounter Summary ---
Author Organization [facility] Address [address] [place] [address] Care Team Providers Care Sterile Process Tech Name Role Phone Lee Fabian MD Primary Care Provider [phone] Vitaliy Fields MD Unavailable [phone] Dallas Camejo MD Unavailable [phone] Rolando Lopez MD Unavailable [phone] Cesar Fair MD Unavailable [phone] Daisy Her PT Unavailable [phone] Reason for Referral * Rehabilitation (Routine) - Pending Review Specialty Diagnoses / Procedures Referred By Contac t Referred To Contact Diagnoses Below-knee amputation of left lower extremity, initial encounter ([facility]) Sheila Childs APRN [address] [address] Referral ID Status Reason Start Date Expiration Date Visits Requested Visits Authorized [id number] Pending Review Support Services 11/30/2024 12/01/2025 1 1 Question Answer Is this related to a Neurological Condition? No Comments Eval and treat 4 weeks s/p left BKA, may be WBAT on the left once orthotic is made and available. Please work on balance, weightbearing, and help with phantom sensation. 2-3 times per week for 4-6 weeks. Reason for Visit * Reason Comments LEFT BKA Encounter Details Date Type Department Care Team (Late st Contact Info) Description 11/30/2024 1:15 PM EST Office Visit [facility] 7 [facility] [address] [place] [address] Sheila Childs APRN 31 [facility] 100 [place] [address] Below-knee amputation of left lower extremity, initial encounter ([facility]) (Primary Dx) Social History Tobacco Use Types Packs/Day Years Used Date Smoking Tobacco: Former Cigarettes 1 29.2 1 977 - 2003 Smokeless Tobacco: Never Alcohol Use Standard Drinks/Week Comments Yes 21 (1 standard drink = 0.6 oz pu re alcohol) [facility] Utilities Answer Date Recorded In the past 12 months has [facility] [employer], gas, oil, or water [employer] threatened to shut off services in your [...] any time in the past 12 m [place], were you homeless or living in a group home (including now)? No 11/03/2024 Sex and Gender Information Value Date Recorded Sex Assigned at Male 09/03/2024 12:21 PM EST Gender Identity Male 09/03/2024 12:21 PM EST Sexual Orientation Heterosexual (straight) 09/10 7:58 AM EST documented as of this encounter Progress Notes * Sheila Childs, GLOBAL HUMAN RESOURCES DIRECTOR - 11/30/2024 1:15 PM EST Images from the original note were not included. [address] [facility] [address] [address] Encounter Date: 11/30/2024 1. Below-knee amputation of left lower extremity, initial encounter (HCC) Amb Referral to Therapy Services (PT or OT) methocarbamol (ROBAXIN) 500 MG tablet HYDROmorphone (DILAUDID) 2 MG tablet HISTORY OF PRESENT ILLNESS Patient returns today, 4 weeks postop s/p left below the knee amputation. Seems to be doing well with no specific complaints. Pain is generally well tolerated. The patient has been discharged from the hospital 5 days ago. He is still experiencing some phantom pain but is getting better and better by the day. For mobility purposes I believe he would benefit from a wheelchair until he gets his custom orthotic for ambulation. He is on gabapentin 100 mg 3 times per day. He is requesting a refill onDilaudid and Robaxin today. Per myself and Dr. Camejo, he has official clearance to proceed with Lawn Maintenance Worker and start getting fitted for a orthotic and also start weightbearing once the orthotic is made and available. He also may begin outpatient formal physical therapy and get his josafat removed today. Subjectively happy with early postop progress and feels ready to transition to the next phase. Free from signs or symptoms of infection. Compliant with protected weightbearing status. PHYSICAL FINDINGS Well appearing male in no apparent distress, alert and oriented x 3. Surgical incisions are healingwell without signs of dehiscence or deep infection. Mild swelling noted about the incision site. PLAN Patient will transition to the 4 week protocol pathway. Approximately 15 minutes were spent in reassurance, education and outlining the treatment plan for the next 3 months of recovery. Recommendations are made above. Would like to see the patient in 3-4 weeks for a 2-month postop check. documented in this encounter Plan of Treatment Upcoming Encounters Date Type Department Care Team (Late st Contact Info) Description 12/07/2024 1:30 PM EDT Appointment [facility] Heart & Vascular [place] - Electrophysiology [address] [place] [address] Gretel Hinds APRN [address] [address] 12/14/2024 2:00 PM EDT [facility] [address] [address] Dallas Camejo MD [address] [place] [address] 12/16/2024 8:30 AM EDT Office Visit [facility] Infectious Disease [address] [place] [phone] Ena Mtz MD [address] [place] [address] Scheduled Referrals Name Type Priority Associated Diagnoses Orde r Schedule Amb Referral to Therapy Services (PT or OT) Outpatient Referral Routine Below-knee amputation of left lower extremity, initial encounter (HCC) Ordered: 11/30/2024 documented as of this encounter Visit Diagnoses Diagnosis Below-knee amputation of left lower extremity, initial encounter (HCC)- Primary documented in this encounter Care Teams Sterile Process Tech Relationship Specialty Start Date End Date Lee Fabian MD 305 [place] [address] PCP - General Internal Medicine 09/02/24 Vitaliy Fields MD [address] [address] Cardiovascular Disease 09/02/24 Dallas Camejo MD 7 [place] [address] Surgery, Orthopedic 09/02/24 Rolando Lopez MD [address] Transplant - Ph [address] [place] [address] Physician Nephrology 09/02/24 Cesar Fair MD [address] [phone] Surgery, Cardiac 11/08/24 Daisy Her, PT 85 [facility] [address] [place] [address] [phone] Records Management AnalystSpray Machine Tender Medicine and Rehabilitation 11/18/24 documented as of this encounter
--- OUTSIDE RECORDS SUMMARY | 2024-12-02 10:37 | XMS_ITS | Encounter Summary ---
Author Organization [facility] Address [address] [place] [address] Care Team Providers Care Director Of [employer] Name Role Phone Lee Fabian MD Primary Care Provider Vitaliy Fields MD Unavailable Dallas Camejo MD Unavailable [phone] Rolando Lopez MD Unavailable [phone] Cesar Fair MD Unavailable [phone] Daisy Her PT Unavailable [phone] Encounter Details Date Type Department Care Team (Late st Contact Info) Description 11/18/2024 Orders Only [facility] Heart & Vascular [place] [facility] - Electrophysiology Laboratory [address] [place] [address] Lucho Ceron MD [address] [place] [address] Social History Tobacco Use Types Packs/Day Years Used Date Smoking Tobacco: Former Cigarettes 1 29.2 1 977 - 2003 Smokeless Tobacco: Never Alcohol Use Standard Drinks/Week Comments Yes 21 (1 standard drink = 0.6 oz pu re alcohol) [facility] Utilities Answer Date Recorded In the past 12 months has [employer], gas, oil, or water [employer] threatened to shut off services in your [...] any time in the past 12 m [facility], were you homeless or living in a longterm (including now)? No 11/03/2024 Sex and Gender Information Value Date Recorded Sex Assigned at Male 09/03/2024 12:21 PM EST Gender Identity Male 09/03/2024 12:21 PM EST Sexual Orientation Heterosexual (straight) 09/10 7:58 AM EST documented as of this encounter Plan of Treatment Upcoming Encounters Date Type Department Care Team (Late st Contact Info) Description 12/07/2024 1:30 PM EDT Appointment 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/10/24 09/16/2024 09/16/2024 11/24/2024 3:08 P M EST R/O Respiratory Disease 11/23/2024 11/23/202410/31 12:00 PM EST documented as of this encounter Care Teams Director Of [employer] Relationship Specialty Start Date End Date Lee Fabian MD [address] [place] [address] PCP - General Internal Medicine 09/02/24 Vitaliy Fields MD [address] [place] [address] Cardiovascular Disease 09/02/24 Dallas Camejo MD 7 [place], [place] [phone] Surgery, Orthopedic 09/02/24 Rolando Lopez MD [address] Transplant - Ph [address] [place] [address] Physician Nephrology 09/02/24 Cesar Fair MD 85 [facility] [address] [place] [address] [phone] Surgery, Cardiac 11/08/24 Daisy Her, PT 85 [facility] [address] [place] [phone] Crane EngineerSenior Research Executive Medicine and Rehabilitation 11/18/24 documented as of this encounter
--- OUTSIDE RECORDS SUMMARY | 2024-12-02 10:38 | XMS_ITS | Encounter Summary ---
Author Organization [facility], Located Within [facility] Address [address] [place] [address] Care Team Providers Care Vehicle Damage Appraiser Name Role Phone Lee Fabian MD Primary Care Provider [phone] Vitaliy Fields MD Unavailable [phone] Dallas Camejo MD Unavailable Rolando Lopez MD Unavailable Cesar Fair MD Unavailable [phone] Daisy Her PT Unavailable [phone] Reason for Referral * Home Health (Routine) - Pending Review Specialty Diagnoses / Procedures Referred By Contac t Referred To Contact Diagnoses Endocarditis Leroy Jean MD [address] [place] [address] [facility] [address] [place] [phone] Referral ID Status Reason Start Date Expiration Date V isits Requested Visits Authorized [id number] Pending Review 11/24/2024 11/25/2025 999 999 Question Answer Primary Reason for Home Health (Enter diagnosis; avoid symptoms): Acute osteomyelitis of left calcaneus (HCC) [[id number]] Requested SOC Date 11/26/2024 Physician to follow patient's care PCP At Home Intensive? No Pre-Book? No Comments Please evaluate Blas Genao for admission to HomeCare Services The following services are medically necessary home health services: Nursing: Cardiopulmonary Care: instruct in disease and medication management Disease Process: assess for S/S of decompensation or adverse effects of new/exacerbated disease Medication Management and Teaching Nutritional Status: assess and provide teaching about disease specific diet recommendations Safety Eval: assess for additional needs Wound Care Management: perform and instruct Physical Therapy: ADL/IADLs: improve independence Cardiopulmonary Program: improve functional activity tolerance and performance Gait Training Home Safety Evaluation and Teaching Strengthening: improve function and mobility Secondary Disciplines &Services: Occupational Therapy: , ADL/IADLs: improve independence, Cardiopulmonary Program: improve functional activity tolerance and performance, Home Safety Evaluation and Teaching, and Strengthening: improve function and mobility Home Health Aide: Assist with personal care Special Instructions: Joint/Ortho This patient is homebound because: Difficulty with ambulation and transfers requiring assistance of others to leave home safely. and Painful ambulation and transfers r/t disease and illness Date of F2F Encounter: I verify that a F2F Encounter occurred on 11/24/24 upon which the patient was found to be homebound and require intermittent skilled care by a SN, PT, ST or OT. Services. The encounter findings are communicated to the certifying physician Reason for Visit * Auth/Cert Specialty Diagnoses / Procedures Referred By Contac t Referred To Contact Diagnoses left ankle infection Procedures N/A Referral ID Status Reason Start Date Expiration Date Visits Re quested Visits Authorized [id number] 1 1 Encounter Details Date Type Department Care Team (Late st Contact Info) Description 11/02/2024 6:10 PM EST - 11/25/2024 7:51 PM EST Hospital Encounter BLISS [address] [phone] Dallas Camejo MD [address] [place] [id number] Shay Martin MD [address] [place] [address] Luis Degroot MD [address] [place] [address] Maddison Villalpando MD [address] [place] [id number] Fredi Powers MD [address] [place] [id number] Brandon Clemente MD [address] [place] [id number] Lela Amor MD [address] [place] [id number] Gianluca Calles MD [address] [place] [address] Leroy Jean MD [address] [place], [place] [phone] (Work) Acute osteomyelitis of left calcaneus (HCC) (Primary Dx); Pacemaker infection, subsequent encounter; Endocarditis; Acute bacterial conjunctivitis of right eye; Bacteremia Discharge Disposition: Home with Health Care Services Social History Tobacco Use Types Packs/Day Years Used Date Smoking Tobacco: Former Cigarettes 1 29.2 1 977 - 2004 Smokeless Tobacco: Never Alcohol Use Standard Drinks/Week Comments Yes 21 (1 standard drink = 0.6 oz pu re alcohol) [facility] Utilities Answer Date Recorded In the past 12 months has [employer], gas, oil, or water [employer] threatened to shut off services in your [...] any time in the past 12 m [facility], were you homeless or living in a fdc (including now)? No 11/03/2024 Sex and Gender Information Value Date Recorded Sex Assigned at Male 09/03/2024 12:21 PM EST Gender Identity Male 09/03/2024 12:21 PM EST Sexual Orientation Heterosexual (straight) 09/10 7:58 AM EST documented as of this encounter Last Filed Vital Signs Vital Sign Reading Time Taken Comments Blood Pressure 136/54 11/25/2024 9:31 AM EST Pulse 59 11/25/2024 9:31 AM EST Temperature 36.2 ??C (97.2 ??F) 11/25/2024 7:58 AM ES T Respiratory Rate 18 11/25/2024 7:58 AM EST Oxygen Saturation 94% 11/25/2024 7:58 AM EST Inhaled Oxygen Concentration - - Weight 98.2 kg (216 lb 7.9 oz) 11/25/2024 6:40 A M EST Height 190.5 cm (6' 3 ) [...] MD (Surgery, Cardiac) Daisy Her PT as [employer] (Physical Medicine and Rehabilitation) PRIMARY DISCHARGE DIAGNOSIS [...] regurgitation (POA: Unknown) Resolved Problems: DISCHARGE DISPOSITION Usp Facility Code Status Procedures Full code . [...] 2 times daily Continuous Glucose Sensor (FreeStyle Wallaec 3 Sensor) Misc INJECT 1 DEVICE INTO [...] Routine Referral Type: Home Health Referral Location: [facility] [...] Department Center 12/07/2024 1:30 PM ROOM, ICD/PACER/LOOP [facility] ARRHY [facility] Arrhythmi 12/15/2024 10:45 AM Alba Ramos MD [id number] PM&r 12/16/2024 8:30 AM Ena Mtz MD [...] PAD, RLS and CKD3 that presents to [facility] inpatient floor as a direct admit under [...] while on IV antibiotics. Fax results to [phone] 4. Patient will need to be scheduled [...] Case IDs Date Procedure Surgeon Location Status [id number] 11/05/24 LEFT BELOW KNEE AMPUTATION Dallas Camejo MD [facility] OR Comp [id number] 11/17/24 Extraction lead(s) laser from dual PM system; [address]250 Rui Pabon MD Main OR Comp [id number] 11/19/24 CVC INSERT (TUNNEL)W/O PORT > 5 YRS Devon Vogt DO IR Comp Diagnostic Studies: XR Foot 1 view-Left Result Date: 11/02/2024 This exam was performed in office at [facility] and images reviewed by orthopedic provider. [...] Discharge Instr - Other Orders* Gretel Hinds, BILL ADJUSTER - 11/17/2024 9:20 AM EST Cardiac Device Extraction Discharge Instructions Important phone numbers: Assistant Toddler Teacher/Surgeon???s office: [phone] (8am-4:30pm Fri - Friday Our answering service [...] If it does not stop, go to [facility] or walk-in center. If you experience any of the above, call your surgeon/shake backboard notcher???s office immediately. If still present, remove the [...] (acetaminophen) every 6 hours for discomfort. Never takemore than 3,000mg of acetaminophen in 24 hours. [...] Report any of these symptoms to your shake backboard notcher. Call your primary board writer if you experience any of the following: [...] Discharge Instructions Important phone numbers: Pacemaker Clinic: [phone] (8am-4:30pm Fri-Friday) Assistant Toddler Teacher/Surgeon???s office: [phone] (8am-4:30pm Fri -Friday) Our answering service is [...] experience any of the above, call your shake backboard notcher???s office immediately It is normal to have [...] dental procedure. You should call your primary board writer if you experience any of the following: [...] when you get home. If your primary board writer???s office will monitor your pacemaker, please call [...] Continuous Glucose Sensor (FreeStyle Wallace 3 Sensor) [facility] INJECT 1 DEVICE INTO THE SKIN EVERY [...] Juany Ospina RN - 11/25/2024 7:51 PM ESTSummyriam: Nurse Navigator Note 11/26/24 1210 Transition Call Pain level 5 How well is pain controlled? Well controlled Discharged medications reviewed with patient? Yes Are you taking meds as prescribed? Yes Do you have any questions or concerns about your medication? Yes (Asked about why he only has IV meds to get him through the weekend - advised to call [facility] - phone number on pg 5 of [facility]) Do you have any questions about your [...] Plan Plan Home w/family and [facility] Patient/Family in Agreement with Plan yes Final Discharge Disposition Code 06 - home with home health care Final Case Management Care Plan Note Summary: Per provider, patient is medically ready to transition home with services. Confirmed that patient is able to obtain medications/food/necessities post discharge. Patient now refusing HSC (LTACH) and returning home with son, [facility] for IV abx and [facility]. Final Destination: Home with son and [facility] Plan for home support/Caregiver/responsible person: Son and [facility] Follow-up provider appointment: Per AVS/W-10 Equipment Ordered [...] standardized measure used to quantify deficits in self- care. The total score of the measure ranges from 6-24. A higher score indicates a higher level of independence with self-care tasks. Current [facility] Daily Activity Score: 18 Precautions/Restrictions: aspiration, fall, [...] in recliner, in NAD on RA, agreeable. Division Commander + limb protector donned to LLE Pain Assessment Pre/Posttreatment Pain Comment denied pain Coping Observed Emotional State calm;cooperative Safety Safety WDL WDL Progressive Mobility Progressive Mobility Level Achieved Transferring to Chair [facility] Daily Activity Putting on and taking off Lower Body Clothing? 3 Bathing (including washing/rinsing/drying)? 2 Toileting (includes using toilet, bedpan, or urinal)? 2 Putting on and taking off upper body clothing? 3 Taking care of personal grooming such as brushing teeth? 4 Eating meals? 4 [facility] Daily Activity Score 18 Progress Summary (OT) Progress Toward Functional Goals (OT) progress toward functional goals is good Sign: Christen Tapia OT * Aditi Jones PA-C - 11/25/2024 11:50 AM EST PHYSICAL MEDICINE & REHABILITATION CONSULT FOLLOW-UP NOTE Patients Name: Blas Genao : 1960 MR Number: [id number] Reason for Consultation: Amputee rehab needs Date [...] acute CHFmrEF, pain. He is NWB to [facility]. Rehab Diagnosis: s/p left BKA Amputation: 05.4 [...] support, tolerance to therapy and plan for tank terminal gauger antibiotics. He mayhave ability to progress to [...] 2,000 Units 2,000 Units Oral Daily Corbin Lamb APRN 2,000 Units at 11/25/24 0934 cyanocobalamin (VITAMIN B-12) tablet 2,500 mcg 2,500 mcg Oral Daily Corbin Lamb BILL ADJUSTER 2,500 mcg at 11/25/24 0932 DAPTOmycin (CUBICIN) [...] injection 5,000 Units 5,000 Units Subcutaneous Q8H [facility] Gianluca Calles MD 5,000 Units at 11/25/24 [...] mL 3 mL Nebulization Q2H PRN Corbin Adonis, BILL ADJUSTER 3 mL at 11/07/24 1025 lactulose (ENULOSE) 10 gm/15 mL solution 20 g 20 g Oral Q4H PRN Corbin Adonis, BILL ADJUSTER melatonin tablet 3 mg 3 mg Oral Nightly PRN Corbin Adonis, BILL ADJUSTER 3 mg at 11/19/24 2222 methocarbamol (ROBAXIN) tablet 1,000 mg 1,000 mg Oral 4x Daily Corbin Adonis, BILL ADJUSTER 1,000 mg at 11/25/24 0934 metoPROLOL TARTRATE (LOPRESSOR) tablet 50 mg 50 mg Oral BID Corbin Adonis, BILL ADJUSTER 50 mg at 11/25/24 0935 multivitamin with minerals tablet 1 tablet 1 tablet Oral Daily Corbin Adonis, BILL ADJUSTER 1 tablet at 11/25/24 0935 naloxone (NARCAN) 0.4 mg/mL injection 0.4 mg 0.4 mg Intravenous Q5 Min PRN Corbin Adonis, BILL ADJUSTER naloxone (NARCAN) 0.4 mg/mL injection 0.4 mg 0.4 mg Intravenous Q5 Min PRN Corbin Adonis, BILL ADJUSTER nicotine (NICODERM CQ) 21 MG/24HR patch 1 patch 1 patch Transdermal Daily Corbin Adonis, BILL ADJUSTER 1 patch at 11/25/24 0930 ondansetron (ZOFRAN) injection 4 mg 4 mg Intravenous Q6H PRN Corbin Adonis, BILL ADJUSTER 4 mg at 11/17/24 1639 PANTOprazole (PROTONIX) EC tablet 40 mg 40 mg Oral Daily Corbin Adonis, BILL ADJUSTER 40 mg at 11/25/24 0935 polyethylene glycol (miraLAx) packet 17 g 17 g Oral Daily Corbin Adonis, BILL ADJUSTER 17 g at 11/25/24 0932 [Provider Held] pravastatin (PRAVACHOL) tablet 20 mg 20 mg Oral Daily Corbin Adonis, BILL ADJUSTER pregabalin (LYRICA) capsule 100 mg 100 mg Oral TID Corbin Adonis, BILL ADJUSTER 100 mg at 11/25/24 0935 senna-docusate (SENNA-S) 8.6-50 MG tablet 2 tablet 2 tablet Oral BID Corbin Lamb APRN 2 tablet at 11/25/24 0936 thiamine mononitrate (VITAMIN B-1) tablet 200 mg 200 mg Oral Daily Corbin Lamb APRN 200 mg at11/25/24 0934 Physical Exam: Vitals: [...] S/p Left BKA with ampushield and stump 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 Plan of Care Patient's plan of care [...] Sanchez MD - 11/24/2024 3:17 PM EST [facility]INE PROGRESS NOTE Assessment & Plan Principal [...] while on IV antibiotics. Fax results to [phone] 4. Patient will need to be scheduled [...] again today. Upon arrival he had a steam and power superintendent in the room with him.Waited outside for 20 minutes before moving on to other patients. Will attempt to meet with patientagain later this week to review stoplight previously provided. * Ena Mtz MD - 11/24/2024 11:24 AM EST Images from the original note were not included. [facility] INFECTIOUS DISEASE Consult progress Note Name: [...] cultures = NGTD -11/04 (2/) bld cx:MRSA -11/02(2) blood cultures: MRSA, Enterococcus [...] while on IV antibiotics. Fax results to [phone] 4. Patient will need to be scheduled for repeat TATIANNA end of November. Patient would like to get this done at [facility] He can follow-up with me on 12/16/2024 at 8:30 AM Current antibiotic/day of therapy: Anti-infectives (From admission, onward) Start Dose/Rate Route Frequency Ordered Stop 11/24/24 0000 cefTRIAXone 2 g in sodium chloride-MBP 0.9% 100 mL IVPB 2 g Intravenous Every 24 hours 11/23/24 16312/28/24235811/23/24 0000 sodium chloride 0.9 % SOLN 50 mL with DAPTOmycin 500 MG SOLR 975 mg 10 mg/kg ?? 97.3 kg (Adjusted) Intravenous Every 24 hours 11/23/24 16312/28/24235811/18/24 1130 cefTRIAXone (ROCEPHIN) 2 g in sodium [...] 11/03/24 0849 Sign Ena Mtz MD, FACP, [facility] Infect[facility] Diseases Available via [employer] SUBJECTIVE Remains in the hospital awaiting placement [...] not compromised. This report was generated using [employer] dictation software. Although every attempt has been made by the provider to proofread this document, occasional misspellings and typographical errors may still be present. * Gianluca Calles MD - 11/23/2024 3:06 PM EST [facility] PROGRESS NOTE Assessment & Plan Principal [...] Calles MD 11/23/2024 3:06 PM * Milan Vale ANESTHESIOLOGIST ATTENDING - 11/23/2024 2:03 PM EST Physical Therapy [...] level of independence with functional mobility. Current [facility] Basic Mobility Score: (P) 18 Rehab Plan [...] in chair upon arrival, RN in room. Ampushield and national accounts sales inplace. Both agreeable for tx Existing Precautions/Restrictions [...] Progressive Mobility Progressive Mobility Level Achieved Ambulation [facility] Basic Mobility Turning from your back to [...] Climbing 3-5 steps with a railing? 1 [facility] Basic Mobility Score 18 Therapy Assessment/Plan (PT) [...] c/w Jardiance - regarding the question of care home PICC for Abx, patient high risk for PICC and proline placed instead on 11/19/24 - Patient should follow up with his outpatient provider service representative on discharge and get repeat lab work [...] found for: TACROLIMUS No results found for: [id number] , TOTVOL , CRCLR , PERIOD No [...] Daily Given, 5 mg at 11/22 821 aspirin enteric coated (ECOTRIN LOW STRENGTH) tablet 81 mg 81 mg, PO, Daily Given, 81 mg at 11/22 141 bumetanide (BUMEX) tablet 2 mg 2 mg, PO, Daily Given, 2 mg at 11/22 08 buPROPion (WELLBUTRIN SR) 12 hr tablet 150 [...] PO, Daily Given, 2,000 Units at 11/22 08 cyanocobalamin (VITAMIN B-12) tablet 2,500 mcg 2,500 [...] SC, Q8H [facility] Given, 5,000 Units at 11/23 219 insulin glargine (LANtus/SEMGLEE) 100 units/mL injection 10 [...] 4x Daily Given, 1,000 mg at 11/22 225 metoPROLOL TARTRATE (LOPRESSOR) tablet 50 mg 50 [...] PO, Daily Given, 200 mg at 11/22 0821 PRN Medication Ordered Dose/Rate, Route, Frequency Last [...] Sign: Isabel Lee PA-C 11/23/2024 7:24 AM [facility] Nephrology Office [phone] Associated attestation - Anmol Reynoso MD - [...] - Patient can follow-up with his outpatient provider service representative upon discharge. Sign: Anmol Reynoso MD 11/23/2024 2:54 PM * Luz Escobedo RN - 11/22/2024 2:40 PM EST Attached media from the original note were not included. Micra AV leadless Pacemaker evaluation completed on B10E. Per patient request and verbal order SharronSHUBHAM Pitts: LRL increased from 50 bpm to 60 bpm. Presenting rhythm: AM/DIRECTOR PUBLIC POLICY @ 62 bpm. Underlying rhythm: CHB. AM/DIRECTOR PUBLIC POLICY pacing 81%, with total V-pacing 100%. Battery [...] (!) 52 (!) 57 (!) 58 Resp: Temp: 97.4 ??F (36.3 ??C) 97.4 ??F (36.3 ??C) 98.3 ??F (36.8 ??C) SpO2: 95% 96% 95% 11/21/24 2357 11/22/24 0045 11/22/24 0421 11/22/24 0737 BP: 121/60 (!) 107/48 (!) 112/52 Pulse: (!) 53 (!) 59 (!) 55 (!) 53 Resp: Temp: 97 ??F (36.1 ??C) 97.8 ??F [...] Calles MD 11/22/2024 12:20 PM * Christen Tapia OT - 11/22/2024 10:01 AM EST Occupational [...] level of independence with self-care tasks. Current [facility] Daily Activity Score: 16 Precautions/Restrictions: aspiration, fall, [...] Progressive Mobility Progressive Mobility Level Achieved Ambulation [facility] Daily Activity Putting on and taking off Lower Body Clothing? 3 Bathing (including washing/rinsing/drying)? 2 Toileting (includes using toilet, bedpan, or urinal)? 2 Putting on and taking off upper body clothing? 3 Taking care of personal grooming such as brushing teeth? 3 Eating meals? 3 [facility] Daily Activity Score 16 Progress Summary (OT) [...] syndrome. Followed chronically by Dr Lopez in [place] peak this admission 2.1mg/dL in the setting of bacteremia and endocarditis. 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 Overall suggesting a hemodynamic renal injury improved with aggressive diuresis Net -27L Cr downtrended with diuretic holiday Plan: - Ok to restart PO bumex 2mg daily - c/w Jardiance - regarding the question of care home PICC for Abx, patient high risk for [...] found for: TACROLIMUS No results found for: [id number] , TOTVOL , CRCLR , PERIOD No [...] Q24H New Bag, 2 g at 11/21 120 chlorhexidine gluconate 2 % wipes - urethral [...] Q24H New Bag, 975 mg at 11/21 140 donepezil (ARICEPT) tablet 10 mg 10 mg, [...] PO, Nightly PRN Given, 3 mg at 11/192 naloxone (NARCAN) 0.4 mg/mL injection 0.4 mg 0.4 mg, IV, Q5 Min PRN Ordered naloxone (NARCAN) 0.4 mg/mL injection 0.4 mg 0.4 mg, IV, Q5 Min PRN Ordered ondansetron (ZOFRAN) injection 4 mg 4 mg, IV, Q6H PRN Given, 4 mg at 11/17 1639 Sign: Anmol Reynoso MD 11/22/2024 9:34 AM [facility] Nephrology Office [phone] * Roberto Carranza PTA - 11/22/2024 8:46 [...] level of independence with functional mobility. Current [facility] Basic Mobility Score: 16 Rehab Plan of [...] is feeling better today. Flowsheet Data 11/22/24 0834 Physical Therapy Time and Intention PT Follow-Up [...] Progressive Mobility Level Achieved Transferring to Chair [facility] Basic Mobility Turning from your back to [...] Climbing 3-5 steps with a railing? 1 [facility] Basic Mobility Score 16 Therapy Assessment/Plan (PT) [...] ongoing Sign: Roberto Carranza PTA * Gema Jane APRN - 11/22/2024 8:18 AM EST Images from the original note were not included. 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: [facility] Assessment & Plan Assessment 63 year old male with hypertension, hyperlipidemia, diabetes, CKD stage III, peripheral artery disease, diabetes, foot infection with osteomyelitis, complete heart block s/p dual chamber pacemaker [id number], atrial fibrillation s/p multiple ablations and cardioversions [...] PO, BID Given, 150 mg at 11/21 2153 calcium citrate (CALCITRATE) tablet 950 mg 950 [...] PO, Daily Given, 2,000 Units at 11/21 910 cyanocobalamin (VITAMIN B-12) tablet 2,500 mcg 2,500 [...] PO, BID Given, 2 tablet at 11/21 910 thiamine mononitrate (VITAMIN B-1) tablet 200 mg 200 mg, PO, Daily Given, 200 mg at 11/21 914 PRN Medication Ordered Dose/Rate, Route, Frequency Last [...] by 8 bpm Confirmed by MD Claude, [facility] ([id number]) on 11/07/2024 6:25:53 PM TATIANNA 11/11/24 [...] Compared to previous outside study report from [facility] on 08/05/2024, Mitral and tricuspid regurgitation were not previously reported. Recommend transesophageal echocardiogram if clinically indicated. Brain MRI 11/12/2024 No acute intracranial findings or suspicious intracranial lesions. No septic emboli. All additional appropriate imaging studies within the past 24 hours reviewed - images reviewed and independently interpreted. Sign Gema Jane APRN [facility] [place] 11/22/2024 8:19 AM * Jose Adair MD - 11/21/2024 2:23 PM EST Nephrology Progress Note Blas Genao Date 11/21/2024 Assessment & Plan Assessment CKD [...] found for: TACROLIMUS No results found for: [id number] , TOTVOL , CRCLR , PERIOD No results found for: IRON , TIBC , IRONSAT , UIBC Lab Results Component Value Date BILITOT 0.2 11/17/2024 AST 24 11/17/2024 Sign: Jose Adair MD 11/21/2024 2:23 PM * Gianluca Calles MD - 11/21/2024 12:02 PM EST [facility] PROGRESS NOTE Assessment & Plan Principal [...] Calles MD - 11/20/2024 11:43 AM EST HOSPITAL MEDICINE PROGRESS NOTE Assessment [...] Calles MD 11/20/2024 11:44 AM * Elsy Berna, BILL ADJUSTER - 11/20/2024 9:23 AM EST Inpatient Nephrology [...] Held] heparin (porcine), 5,000 Units, Subcutaneous, Q8H [facility] insulin glargine, 10 Units, Subcutaneous, Daily insulin [...] found for: TACROLIMUS No results found for: [id number] , TOTVOL , CRCLR , PERIOD No results found for: IRON , TIBC , IRONSAT , UIBC Lab Results Component Value Date BILITOT 0.2 11/17/2024 AST 24 11/17/2024 Signed: Elsy Coronel APRN 11/20/2024 9:23 AM Associated attestation - Jose Adair MD - 11/20/2024 6:31 PM EST ATTESTATION: This encounter was done in conjunction with [employer]. I provided the substantive portion of thevisit [...] Calles MD - 11/19/2024 2:22 PM EST [facility] PROGRESS NOTE Assessment & Plan Principal [...] interval not displayed. Sign Gianluca Calles MD 11/19/2024 2:22 PM * Ena Mtz MD - 11/19/2024 1:10 PM EST Images from the original note were not included. [facility] INFECTIOUS DISEASE Consult progress Note Name: [...] 2018 6.Right TMA with chronic wounds WBC: 10.1 [...] while on IV antibiotics. Fax results to [phone] 4. Patient will need to be scheduled for repeat TATIANNA end of November Patient would like to follow-up with infectious disease close to home. I have communicated with Dr. Saritha Coffey office (infectious disease) at [phone]. She stated that this patient is very complicated for [facility] and she will not be following this patient He can follow-up with me in my office in 3 to 4 weeks. I would recommend that he be scheduled for repeat TATIANNA end of November at here at [facility] Current antibiotic/day of therapy: Anti-infectives (From admission, [...] 0849 Sign Ena Mtz MD, FACP, CWSP [facility] Infectious Diseases Available via Optovue SUBJECTIVE Afebrile, status post AICD extraction CURRENT [...] care and coordination of care with his [id number] infectious disease physician and office Of note, some information is being carried forward from prior records for informational purposes only and is being cited so that efficiency, safety and quality of this patient's care is not compromised. This report was generated using Revolv dictation software. Although every attempt has been [...] left stoplight for his review and will [place] back next week to review with the patient. * Valencia Lau APRN - 11/19/2024 8:02 AM EST Images from the original note were not included. 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: [facility] Assessment & Plan Assessment 63 year old male with hypertension, hyperlipidemia, diabetes, CKD stage III, peripheral artery disease, diabetes, foot infection with osteomyelitis, complete heart block s/p dual chamber pacemaker [id number], atrial fibrillation s/p multiple ablations and cardioversions [...] PO, Daily Given, 200 mg at 11/18 1030 amLODIPine (NORVASC) tablet 10 mg 10 mg, PO, Daily Given, 10 mg at 11/18 1029 bumetanide (BUMEX) injection 1 mg 1 mg, IV, Q24H Given, 1 mg at 11/18 1103 buPROPion (WELLBUTRIN SR) 12 hr tablet [...] injection 5,000 Units On hold since Fri11/16/2024 [id number] until manually unheld; held by Herberth Whitmore [...] with meals Given, 5 Units at 11/18 1734 insulin lispro (HumaLOG/ADMELOG) 100 units/mL injection 3 [...] by 8 bpm Confirmed by MD Claude, [facility] ([id number]) on 11/07/2024 6:25:53 PM TATIANNA 11/11/24 [...] Compared to previous outside study report from [facility] on 08/05/2024, Mitral and tricuspid regurgitation were not previously reported. Recommend transesophageal echocardiogram if clinically indicated. Brain MRI 11/12/2024 No acute intracranial findings or suspicious intracranial lesions. No septic emboli. All additional appropriate imaging studies within the past 24 hours reviewed - images reviewed and independently interpreted. Sign Valencia Lau APRN [facility] [place] 11/19/2024 8:54 AM * Lela Amor MD [...] interrogation ordered for post- OP. Presenting rhythm: AM-DIRECTOR PUBLIC POLICY @ 69 bpm. Underlying rhythm: No ventricular response greater than 40 bpm. AM-DIRECTOR PUBLIC POLICY @ 84.8%. 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 Cardiac monitoring / telemetry Until discontinued Question Answer Comment Clinical Indications For Cardiac Monitoring Cardiac (Rhythm Related) Rhythm related indications Post EP Procedure (Ablation, PPM, ICD) 11/17/24 1757 Cardiac monitoring / telemetry Until discontinued Question: Clinical Indications For Cardiac Monitoring Answer: Critical Care/NICU/PACU 11/07/24 1209 Events Noted in the Last 24 hrs: none eLla Amor MD 11/18/2024 12:12 PM * Aditi Jones PA-C - 11/18/2024 10:45 AM EST PHYSICAL MEDICINE & REHABILITATION CONSULT FOLLOW-UP NOTE Patients Name: Blas Genao : 1960 MR Number: [id number] Reason for Consultation: Rehabilitation potential Date of [...] acute CHFmrEF, pain. He is NWB to [facility]. Rehab Diagnosis: s/p left BKA Amputation: 05.4 [...] support, tolerance to therapy and plan for retirement antibiotics. Will follow progress with therapy. Sleep: [...] tablet 975 mg 975 mg Oral Q6H [facility] Corbin Lamb, BILL ADJUSTER 975 mg at 026 acetaminophen (TYLENOL) tablet 975 mg 975 mg Oral Q6H PRN Corbin Lamb BILL ADJUSTER amiODARONE (PACERONE) tablet 200 mg 200 mg Oral Daily Corbindenise Lamb, BILL ADJUSTER 200 mg at 11/18/24 1030 amLODIPine (NORVASC) tablet 10 mg 10 mg Oral Daily Corbin Lamb, BILL ADJUSTER 10 mg at 11/18/24 1029 benzocaine-menthol (CHLORASEPTIC) 6-10 MG lozenge 1 lozenge 1 lozenge Mouth/Throat Q2H PRN RoshelleM Tappin, BILL ADJUSTER bisacodyl (DULCOLAX) suppository 10 mg 10 mg Rectal Daily PRN Corbin Lamb BILL ADJUSTER bumetanide (BUMEX) injection 1 mg 1 mg Intravenous Q24H Corbin Lamb, BILL ADJUSTER 1 mg at 11/18/24 1103 buPROPion (WELLBUTRIN SR) 12 hr tablet 150 mg 150 mg Oral BID Corbin Lamb, BILL ADJUSTER 150 mg at 11/18/24 1028 calcium carbonate (TUMS) chewable tablet 1,000 mg 1,000 mg Oral Q12H PRN Corbindenise Lamb BILL ADJUSTER calcium citrate (CALCITRATE) tablet 950 mg 950 mg Oral BID with meals Corbin Adonis, BILL ADJUSTER 950 mgat 11/18/24 1105 carboxymethylcellulose (REFRESH PLUS) 0.5 % ophthalmic solution 2 drop 2 drop Each Eye Q2H PRN Gretel Hinds APRN cefTRIAXone (ROCEPHIN) 2 g in sodium chloride-MBP (NS) 100 mL IVPB-MBP 2 g Intravenous Q24H MD Dylan 200 mL/hr at 11/18/24 1235 2 g at 11/18/24 1235 chlorhexidine gluconate 2 % wipes - urethral catheter CHG application Topical Daily Corbin Lamb BILL ADJUSTER Given at 11/18/24 1031 cholecalciferol tablet 2,000 Units 2,000 Units Oral Daily Corbin Lamb, BILL ADJUSTER 2,000 Units at 11/18/24 1103 cyanocobalamin (VITAMIN B-12) tablet 2,500 mcg 2,500 mcg Oral Daily Corbin Lamb BILL ADJUSTER 2,500 mcg at 11/18/24 1027 DAPTOmycin (CUBICIN) 975 mg in sodium chloride (NS) 0.9 % 50 mL IVPB 10 mg/kg (Adjusted) Intravenous Q24H Corbin Lamb APRN 0 mL/hr at 11/16/24 1712 975 mg at 11/17/24 1420 donepezil (ARICEPT) tablet 10 mg 10 mg Oral QAM Corbin Lamb BILL ADJUSTER 10 mg at 11/18/24 1105 [Provider Held] empagliflozin (JARDIANCE) 25 mg 25 mg Oral Daily Corbin Lamb BILL ADJUSTER 25 mg at 11/04/24 0756 folic acid (FOLVITE) tablet 1 mg 1 mg Oral Daily Corbin Lamb BILL ADJUSTER 1 mg at 11/18/24 1028 [Provider Held] glimepiride (AMARYL) tablet 2 mg 2 mg Oral Daily with breakfast Corbin Lamb BILL ADJUSTER 2 mg at 11/04/24 0757 [Provider Held] heparin (porcine) 5000 unit/mL injection 5,000 Units 5,000 Units Subcutaneous Q8H [facility] Corbin Lamb BILL ADJUSTER 5,000 Units at 11/16/24 1714 HYDROmorphone (DILAUDID) tablet 2 mg 2 mg Oral Q3H PRN Corbin Lamb BILL ADJUSTER 2 mg at 11/18/24 1030 HYDROmorphone (DILAUDID) tablet 4 mg 4 mg Oral Q3H PRN Corbindenise Lamb, BILL ADJUSTER 4 mg at 11/16/24 2213 insulin glargine (LANtus/SEMGLEE) 100 units/mL injection 10 Units 10 Units Subcutaneous Daily Corbin Adonis, BILL ADJUSTER 10 Units at 11/18/24 1032 insulin lispro (HumaLOG/ADMELOG) 100 units/mL injection 1-6 Units 1-6 Units Subcutaneous TID with meals Corbindenise Lamb BILL ADJUSTER 3 Units at 11/18/24 1232 insulin lispro (HumaLOG/ADMELOG) 100 units/mL injection 3 Units 3 Units Subcutaneous TID with mealsNiccarmen Lamb BILL ADJUSTER 3 Units at 11/18/24 1232 ipratropium-albuterol (DUONEB) 0.5-2.5 mg/3 mL nebulizer solution 3 mL 3 mL Nebulization Q2H PRN Cobrindenise Lamb, BILL ADJUSTER 3 mL at 11/07/24 1025 lactulose (ENULOSE) 10 gm/15 mL solution 20 g 20 g Oral Q4H PRN Corbin Lamb BILL ADJUSTER melatonin tablet 3 mg 3 mg Oral Nightly PRN Corbindenise Lamb BILL ADJUSTER 3 mg at 11/16/24 2215 methocarbamol (ROBAXIN) tablet 1,000 mg 1,000 mg Oral 4x Daily Corbindenise Lamb, BILL ADJUSTER 1,000 mg at 11/18/24 1105 metoPROLOL TARTRATE (LOPRESSOR) tablet 50 mg 50 mg Oral BID Corbin Lamb, BILL ADJUSTER 50 mg at 11/18/24 1031 multivitamin with minerals tablet 1 tablet 1 tablet Oral Daily Corbindenise Lamb, BILL ADJUSTER 1 tablet at 11/18/24 1028 naloxone (NARCAN) 0.4 mg/mL injection 0.4 mg 0.4 mg Intravenous Q5 Min PRN Corbindenise Lamb BILL ADJUSTER naloxone (NARCAN) 0.4 mg/mL injection 0.4 mg 0.4 mg Intravenous Q5 Min PRN Corbindenise Lmab BILL ADJUSTER nicotine (NICODERM CQ) 21 MG/24HR patch 1 patch 1 patch Transdermal Daily Corbin Adonis, BILL ADJUSTER 1 patch at 11/18/24 1030 ondansetron (ZOFRAN) injection 4 mg 4 mg Intravenous Q6H PRN Corbindenise Lamb, BILL ADJUSTER 4 mg at 11/17/24 1639 PANTOprazole (PROTONIX) EC tablet 40 mg 40 mg Oral Daily Corbin Adonis, BILL ADJUSTER 40 mg at 11/18/24 1029 polyethylene glycol (miraLAx) packet 17 g 17 g Oral Daily Corbin Adonis, BILL ADJUSTER 17 g at 11/18/24 1040 [Provider Held] pravastatin (PRAVACHOL) tablet 20 mg 20 mg Oral Daily Corbin Adonis, BILL ADJUSTER pregabalin (LYRICA) capsule 100 mg 100 mg Oral TID Corbin Adonis, BILL ADJUSTER 100 mg at 11/18/24 1105 senna-docusate (SENNA-S) 8.6-50 MG tablet 2 tablet 2 tablet Oral BID Corbin Adonis, BILL ADJUSTER 2 tablet at 11/18/24 1032 thiamine mononitrate (VITAMIN B-1) tablet 200 mg 200 mg Oral Daily Corbin Adonis, BILL ADJUSTER 200 mg at11/18/24 1031 Physical Exam: Vitals: [...] S/p Left BKA with ampushield and 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 Presenting rhythm: AM-DIRECTOR PUBLIC POLICY @ 69 bpm. Underlying rhythm: No ventricular response greater than 40 bpm. AM-DIRECTOR PUBLIC POLICY @ 84.8%. Battery and device parameters evaluated [...] from the original note were not included. [facility] INFECTIOUS DISEASE Consult progress Note Name: [...] cultures = NGTD -11/04 (2/2) bld cx:MRSA -11/02(2/) blood cultures: MRSA, Enterococcus faecalis, Enterococcus faecium [...] try to reach Dr. Saritha Coffey at [facility] tomorrow Current antibiotic/day of therapy: Anti-infectives (From [...] 0849 Sign Ena Mtz MD, FACP, CWSP [facility] Infectious Diseases Available via GENW[employer] SUBJECTIVE Afebrile, status post AICD extraction CURRENT [...] not compromised. This report was generated using Jobster Speaking dictation software. Although every attempt has been made by the provider to proofread this document, occasional misspellings and typographical errors may still be present. * Valencia Lau APRN - 11/18/2024 8:48 AM EST Images from the original note were not included. 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: [facility] Assessment & Plan Assessment 63 year old male with hypertension, hyperlipidemia, diabetes, CKD stage III, peripheral artery disease, diabetes, foot infection with osteomyelitis, complete heart block s/p dual chamber pacemaker [id number], atrial fibrillation s/p multiple ablations and cardioversions [...] IV, Q24H Given, 1 mg at 11/17 08 buPROPion (WELLBUTRIN SR) 12 hr tablet 150 mg 150 mg, PO, BID Given, 150 mg at 11/17 2124 calcium citrate (CALCITRATE) tablet 950 mg 950 mg, PO, BID with meals Given, 950 mg at 11/17 0813 chlorhexidine gluconate 2 % wipes - urethral catheter CHG application No Dose/Rate, TOP, Daily Ordered cholecalciferol tablet 2,000 Units 2,000 Units, PO, Daily Given, 2,000 Units at 11/17 08 cyanocobalamin (VITAMIN B-12) tablet 2,500 mcg 2,500 [...] injection 5,000 Units On hold since Fri11/16/2024 [id number] until manually unheld; held by Herberth Whitmore [...] with meals Given, 1 Units at 11/17 1856 insulin lispro (HumaLOG/ADMELOG) 100 units/mL injection 3 Units 3 Units, SC, TID with meals Given, 3 Units at 11/17 1213 methocarbamol (ROBAXIN) tablet 1,000 mg 1,000 mg, [...] PO, Daily Given, 17 g at 11/17 1212 [Provider Held] pravastatin (PRAVACHOL) tablet 20 mg [...] by 8 bpm Confirmed by MD Claude, [facility] ([id number]) on 11/07/2024 6:25:53 PM TATIANNA 11/11/24 [...] Compared to previous outside study report from [facility] on 08/05/2024, Mitral and tricuspid regurgitation were not previously reported. Recommend transesophageal echocardiogram if clinically indicated. Brain MRI 11/12/2024 No acute intracranial findings or suspicious intracranial lesions. No septic emboli. All additional appropriate imaging studies within the past 24 hours reviewed - images reviewed and independently interpreted. Sign Valencia Lau APRN [facility] [place] 11/18/2024 8:48 AM * Cristina Rodriguez APRN - 11/18/2024 8:28 AM EST Electrophysiology Update: [...] Department Center 12/07/2024 1:30 PM ROOM, ICD/PACER/LOOP [facility] ARRHY [facility] Arrhythmi Current Facility-Administered Medications: acetaminophen (TYLENOL) tablet 975 mg, 975 mg, Oral, Q6H JUDSON, Corbin Adonis, BILL ADJUSTER, 650 mg at 11/18/24 0305 acetaminophen (TYLENOL) tablet 975 mg, 975 mg, Oral, Q6H PRN, Corbin Adonis, BILL ADJUSTER amiODARONE (PACERONE) tablet 200 mg, 200 mg, Oral, Daily, Corbin Adonis, BILL ADJUSTER, 200 mg at 11/17/24 0813 amLODIPine (NORVASC) tablet 10 mg, 10 mg, Oral, Daily, Corbin Adonis, BILL ADJUSTER, 10 mg at 11/17/24 0816 benzocaine-menthol (CHLORASEPTIC) 6-10 MG lozenge 1 lozenge, 1 lozenge, Mouth/Throat, Q2H PRN, Gretel Hinds APRN bisacodyl (DULCOLAX) suppository 10 mg, 10 mg, Rectal, Daily PRN, Corbin Lamb BILL ADJUSTER bumetanide (BUMEX) injection 1 mg, 1 mg, Intravenous, Q24H, Corbin Lamb BILL ADJUSTER, 1 mg at 11/17/24 0813 buPROPion (WELLBUTRIN SR) 12 hr tablet 150 mg, 150 mg, Oral, BID, Corbin Adonis, BILL ADJUSTER, 150 mg at11/17/24 2125 calcium carbonate (TUMS) chewable tablet 1,000 mg, 1,000 mg, Oral, Q12H PRN, Corbin Adonis, BILL ADJUSTER calcium citrate (CALCITRATE) tablet 950 mg, 950 mg, Oral, BID with meals, Corbin Adonis, BILL ADJUSTER, 950 mg at 11/17/24 0813 carboxymethylcellulose (REFRESH PLUS) 0.5 % ophthalmic solution 2 drop, 2 drop, Each Eye, Q2H PRN, Gretel Hinds, BILL ADJUSTER chlorhexidine gluconate 2 % wipes - urethral catheter CHG application, , Topical, Daily, Corbin Adonis, BILL ADJUSTER cholecalciferol tablet 2,000 Units, 2,000 Units, Oral, Daily, Corbin Adonis, BILL ADJUSTER, 2,000 Units at 11/17/24 0815 cyanocobalamin (VITAMIN B-12) tablet 2,500 mcg, 2,500 mcg, Oral, Daily, Corbin Adonis, BILL ADJUSTER, 2,500 mcg at 11/17/24 0814 DAPTOmycin (CUBICIN) 975 mg in sodium chloride (NS) 0.9 % 50 mL IVPB, 10 mg/kg (Adjusted), Intravenous, Q24H, Corbin Adonis, BILL ADJUSTER, Last Rate: 0 mL/hr at 11/16/24 1712, 975 mg at 11/17/24 1420 donepezil (ARICEPT) tablet 10 mg, 10 mg, Oral, QAM, Corbin Adonis, BILL ADJUSTER, 10 mg at 11/17/24 0816 [Provider Held] empagliflozin (JARDIANCE) 25 mg, 25 mg, Oral, Daily, Corbin Adonis, BILL ADJUSTER, 25 mg at 11/04/24 0756 folic acid (FOLVITE) tablet 1 mg, 1 mg, Oral, Daily, Corbin Adonis, BILL ADJUSTER, 1 mg at 11/17/24 0813 [Provider Held] glimepiride (AMARYL) tablet 2 mg, 2 mg, Oral, Daily with breakfast, Corbin Adonis, BILL ADJUSTER, 2 mg at 11/04/24 0757 [Provider Held] heparin (porcine) 5000 unit/mL injection 5,000 Units, 5,000 Units, Subcutaneous, Q8H JUDSON, Corbindenise Lamb, BILL ADJUSTER, 5,000 Units at 11/16/24 1714 HYDROmorphone (DILAUDID) tablet 2 mg, 2 mg, Oral, Q3H PRN, Corbin Adonis, BILL ADJUSTER, 2 mg at 540 HYDROmorphone (DILAUDID) tablet 4 mg, 4 mg, Oral, Q3H PRN, Corbindenise Lamb, BILL ADJUSTER, 4 mg at 213 insulin glargine (LANtus/SEMGLEE) 100 units/mL injection 10 Units, 10 Units, Subcutaneous, Daily, Corbin Lamb BILL ADJUSTER insulin lispro (HumaLOG/ADMELOG) 100 units/mL injection 1-6 Units, 1-6 Units, Subcutaneous, TID with meals, Corbin Lamb, BILL ADJUSTER, 1 Units at 11/17/24 1856 insulin lispro (HumaLOG/ADMELOG) 100 units/mL injection 3 Units, 3 Units, Subcutaneous, TID with meals, Corbin Lamb, BILL ADJUSTER, 3 Units at 11/17/24 1213 ipratropium-albuterol (DUONEB) 0.5-2.5 mg/3 mL nebulizer solution 3 mL, 3 mL, Nebulization, Q2H PRN, Corbin Lamb, BILL ADJUSTER, 3 mL at 11/07/24 1025 lactulose (ENULOSE) 10 gm/15 mL solution 20 g, 20 g, Oral, Q4H PRN, Corbin Lamb, BILL ADJUSTER melatonin tablet 3 mg, 3 mg, Oral, Nightly PRN, Corbin Adonis, BILL ADJUSTER, 3 mg at 11/16/24 2215 methocarbamol (ROBAXIN) tablet 1,000 mg, 1,000 mg, Oral, 4x Daily, Corbin Adonis, BILL ADJUSTER, 1,000 mgat 11/17/242125 metoPROLOL TARTRATE (LOPRESSOR) tablet 50 mg, 50 mg, Oral, BID, Corbin Adonis, BILL ADJUSTER, 50 mg at 11/17/242123 multivitamin with minerals tablet 1 tablet, 1 tablet, Oral, Daily, Corbin Adonis, BILL ADJUSTER, 1 tabletat 11/17/24 0816 naloxone (NARCAN) 0.4 mg/mL injection 0.4 mg, 0.4 mg, Intravenous, Q5 Min PRN, Corbin Adonis, BILL ADJUSTER naloxone (NARCAN) 0.4 mg/mL injection 0.4 mg, 0.4 mg, Intravenous, Q5 Min PRN, Corbin Adonis, BILL ADJUSTER nicotine (NICODERM CQ) 21 MG/24HR patch 1 patch, 1 patch, Transdermal, Daily, Corbin Adonis, BILL ADJUSTER, 1 patch at 11/17/24 0816 ondansetron (ZOFRAN) injection 4 mg, 4 mg, Intravenous, Q6H PRN, Corbin Adonis, BILL ADJUSTER, 4 mg at 11/17/24 1639 PANTOprazole (PROTONIX) EC tablet 40 mg, 40 mg, Oral, Daily, Corbin Adonis, BILL ADJUSTER, 40 mg at 11/17/24 0815 polyethylene glycol (miraLAx) packet 17 g, 17 g, Oral, Daily, Corbin Adonis, BILL ADJUSTER, 17 g at 11/17/24 1212 [Provider Held] pravastatin (PRAVACHOL) tablet 20 mg, 20 mg, Oral, Daily, Corbin Adonis, BILL ADJUSTER pregabalin (LYRICA) capsule 100 mg, 100 mg, Oral, TID, Corbin Adonis, BILL ADJUSTER, 100 mg at 11/17/24 2124 senna-docusate (SENNA-S) 8.6-50 MG tablet 2 tablet, 2 tablet, Oral, BID, Corbin Adonis, BILL ADJUSTER, 2 tablet at 11/17/245 thiamine mononitrate (VITAMIN B-1) tablet 200 mg, 200 mg, Oral, Daily, Corbin Adonis, BILL ADJUSTER, 200 mg at 11/17/24 0814 Vitals: 11/18/24 [...] (218 lb 11.1 oz) Height: Cristina Rodriguez, BILL ADJUSTER 11/18/24 9:18 AM Addendum: From an EP perspective, he can re-start his Eliquis today. Cristina Rodriguez, BILL ADJUSTER 11/18/24 9:19 AM * Sri Pena RN - 11/18/2024 8:25 AM EST Attached media from the original note were not included. Pacemaker evaluation completed on B10E, device interrogation ordered for post- OP. Presenting rhythm: AM-DIRECTOR PUBLIC POLICY @ 69 bpm. Underlying rhythm: No ventricular response greater than 40 bpm. AM-DIRECTOR PUBLIC POLICY @ 84.8%. Battery and device parameters evaluated and within normal limits. Normal pacemaker function. Micra pacemakers do not record events. Sri Pena RN * Katy Rodgers, OT - 11/18/2024 [...] level of independence with self-care tasks. 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 3 Bathing (including washing/rinsing/drying)? 2 Toileting (includes using toilet, bedpan, or urinal)? 2 Putting on and taking off upper body clothing? 3 Taking care of personal grooming such as brushing teeth? 3 Eating meals? 3 [facility] Daily Activity Score 16 Therapy Assessment/Plan (OT) [...] OT) goal ongoing Bathing Goal 1 (OT) [place] Level/Cues Needed (Bathing Goal 1, OT) minimum [...] Frame (Dressing Goal 1, OT) 1 week [place]/Cues Needed (Dressing Goal 1, OT) minimum assist (75% or more patient effort) Toileting Goal 1 (OT) Activity/Device (Toileting Goal 1, OT) toileting skills, all Progress/Outcome (Toileting Goal 1, OT) goal revised this date Time Frame (Toileting Goal 1, OT) 1 week [place] Level/Cues Needed (Toileting Goal 1, OT) minimum assist (75% or more patient effort) Sign: Katy Rodgers, OT * Valencia Lau APRN - 11/17/2024 10:51 AM EST Images from the original note were not included. 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 Underlying rhythm: SB @ [...] Q6H JUDSON Given, 975 mg at 11/17 815 amiODARONE (PACERONE) tablet 200 mg 200 mg, [...] IVPB 10 mg/kg, IV, Q24H Stopped, 11/16 171 donepezil (ARICEPT) tablet 10 mg 10 mg, PO, QAM Given, 10 mg at 11/17 08 [Provider Held] empagliflozin (JARDIANCE) 25 mg [...] Hold reason: Pre-procedure 5,000 Units, SC, Q8H UJDSON Given, 5,000 Units at 11/16 171 insulin [...] by 8 bpm Confirmed by MD Claude, [facility] ([id number]) on 11/07/2024 6:25:53 PM TATIANNA 11/11/24 [...] Compared to previous outside study report from [facility] on 08/05/2024, Mitral and tricuspid regurgitation were not previously reported. Recommend transesophageal echocardiogram if clinically indicated. Brain MRI 11/12/2024 No acute intracranial findings or suspicious intracranial lesions. No septic emboli. All additional appropriate imaging studies within the past 24 hours reviewed - images reviewed and independently interpreted. Sign Valencia Lau APRN [facility] [place] 11/17/2024 10:51 AM Associated attestation - Devon [...] Powers MD - 11/17/2024 10:06 AM EST [facility] PROGRESS NOTE Assessment & Plan Principal [...] 110/57 Pulse: 60 65 76 61 Resp: 18 [...] Powers MD 11/17/2024 10:06 AM * Roberto Carranza PTA - 11/17/2024 9:36 AM EST Physical Therapy Progress Note Precautions/Restrictions: fall, aspiration, other (see comments) (Skin) Assessment Summary: Patient seen for PT follow up. 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 Performed bed mobility and [...] level of independence with functional mobility. Current [facility] Basic Mobility Score: 16 Rehab Plan of [...] Progressive Mobility Level Achieved Transferring to Chair [facility] Basic Mobility Turning from your back to [...] Climbing 3-5 steps with a railing? 1 [facility] Basic Mobility Score 16 Therapy Assessment/Plan (PT) [...] from the original note were not included. [facility] INFECTIOUS DISEASE Consult progress Note Name: [...] Ena Mtz MD, FACP, CWSP [facility] Available via [employer] SUBJECTIVE Afebrile. No new complaints Feels better. On room air CURRENT MEDICATIONS: Reviewed OBJECTIVE PHYSICAL EXAMINATION: Vitals: 11/16/24 1527 11/16/24 1950 11/16/24 2115 11/17/24 0629 BP: (!) 107/58 (!) 123/57 (!) 110/57 BP Location: Right arm Right arm Right arm Patient Position: Lying Sitting Lying Pulse: 60 65 76 61 Resp: Temp: [...] not compromised. This report was generated using [employer] Naturally Speaking dictation software. Although every attempt has been made by the provider to proofread this document, occasional misspellings and typographical errors may still be present. * Maddison Villalpando MD - 11/16/2024 2:35 PM EST HOSPITAL MEDICINE PROGRESS NOTE Assessment [...] going up, will change to Bumex 1 mg daily, will follow cardiology inputs. Intermittent jerking/tremor like [...] Vitals: 11/15/24 0850 11/15/24 1200 11/15/24 1604 11/15/24 2000 BP: (!) 125/58 (!) 105/57 106/59 135/62 Pulse: 72 62 73 65 Resp: 18 18 18 Temp: 97.9 ??F (36.6 ??C) 97.5 ??F (36.4 ??C) 97.4 ??F (36.3 ??C) SpO2: 99% 97% 98% 11/16/24 0022 11/16/24 0234 11/16/24 0500 11/16/24 0800 BP: (!) 93/58 (!) 115/56 119/59 Pulse: 63 68 67 63 Resp: 18 18 18 Temp: 97.6 ??F (36.4 ??C) (!) 95.9 [...] included. Coverage for Dr. Mtz [facility] Progress Note Name: Blas Genao Age: [...] in 2017 6.Right TMA with chronic wounds 7. 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 [...] 3 Units 3 Units Subcutaneous TID with mealsMaddison Villalpando MD 3 Units at 11/16/24 0947 [...] PRN Luis Degroot MD 3 mg at 11/13/242151 methocarbamol (ROBAXIN) tablet 1,000 mg 1,000 mg Oral 4x Daily Luis Degroot MD 1,000 mg at metoPROLOL TARTRATE (LOPRESSOR) tablet 50 mg 50 mg Oral BID Luis Degroot MD 50 mg at 11/16/24945 mineral oil (FLEET OIL) enema 1 enema [...] BID Luis Degroot MD 2 tablet at 11/16/24945 thiamine mononitrate (VITAMIN B-1) tablet 200 mg 200 mg Oral Daily Luis Degroot MD 200 mg at 11/16/24945 ALLERGIES: Allergies Allergen Reactions Lisinopril Other (See [...] not compromised This report was generated using Jobster Speaking dictation software. Although every attempt has been made by the provider to proofread this document, occasional misspellings and typographical errors Sign Chris [place] MD, FIDSA, [facility] Infectious Diseases Available via GigaBryte 11/16/2024 11:27 AM * Maddison Villalpando MD - 11/15/2024 5:16 PM EST [facility] PROGRESS NOTE Assessment & Plan Brief [...] Pulse: 61 61 67 61 Resp: 18 Temp: 97 ??F (36.1 ??C) 97 ??F (36.1 ??C) 97.2 ??F (36.2 ??C) 97.6 ??F (36.4 ??C) SpO2: 92% 97% 96% 97% 11/15/24 0700 11/15/24 0850 11/15/24 1200 11/15/24 1604 BP: (!) 116/58 (!) 125/58 (!) 105/57 106/59 Pulse: 65 72 62 73 Resp: Temp: 97.9 ??F (36.6 ??C) 97.5 [...] were not included. Coverage for Dr. Mtz [facility] ID Progress Note Name: Blas Genao [...] faecium -10/27: Left foot wound culture at [facility]: MRSA, Enterococcus faecalis, VRE, Corynebacterium species and [...] fibrillation s/p Watchman device implantation in 2017 5.Right TMA with chronic wounds 6. Inflammatory markers CRP 29.62, ESR 79 7. Antibiotics -Daptomycin, 11/03 -Meropenem, 11/03-11/05 -Ceftaroline, 11/05-11/12 -Aztreonam, 02/ Plan: -Weekend events reviewed -MRI of the [...] was performed in office at [facility] and images reviewed by orthopedic provider. [...] injection 5,000 Units 5,000 Units Subcutaneous Q8H [facility] Luis Degroot MD 5,000 Units at 11/15/24 [...] Daily Luis Degroot MD 1,000 mg at 0 metoPROLOL TARTRATE (LOPRESSOR) tablet 50 mg 50 [...] not compromised This report was generated using Jobster Speaking dictation software. Although every attempt has been made by the provider to proofread this document, occasional misspellings and typographical errors Sign Chris [place] MD, [facility], [facility] Infectious Diseases Available via Giga[employer] 11/15/2024 1:10 PM * Devon Lazo MD - 11/15/2024 1:00 PM EST Images from the original note were not included. 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: Assessment & Plan Assessment 63 year old male with hypertension, hyperlipidemia, diabetes, CKD stage III, peripheral artery disease, diabetes, foot infection with osteomyelitis, complete heart block s/p dual chamber pacemaker [id number], atrial fibrillation s/p multiple ablations and cardioversions [...] PO, Daily Given, 10 mg at 11/15 0851 buPROPion (WELLBUTRIN SR) 12 hr tablet 150 mg 150 mg, PO, BID Given, 150 mg at 11/15 0850 calcium citrate (CALCITRATE) tablet 950 mg 950 mg, PO, BID with meals Given, 950 mg at 11/15 0751 chlorhexidine gluconate 2 % wipes - central line CHG application No Dose/Rate, TOP, Daily Given, 1 each at 11/12 945 cholecalciferol tablet 2,000 Units 2,000 Units, PO, Daily Given, 2,000 Units at 11/15 0849 cyanocobalamin (VITAMIN B-12) tablet 2,500 mcg 2,500 mcg, PO, Daily Given, 2,500 mcg at 11/15 0749 DAPTOmycin (CUBICIN) 975 mg in sodium chloride (NS) 0.9 % 50 mL IVPB 10 mg/kg, IV, Q24H Stopped, 11/14 1417 donepezil (ARICEPT) tablet 10 mg 10 mg, [...] PO, Daily Given, 1 mg at 11/15 0851 [Provider Held] glimepiride (AMARYL) tablet 2 [...] PO, Daily Given, 1 tablet at 11/15 850 nicotine (NICODERM CQ) 21 MG/24HR patch 1 patch 1 patch, TD, Daily Patch Applied, 1 patch at 11/15 848 PANTOprazole (PROTONIX) EC tablet 40 mg 40 mg, PO, Daily Given, 40 mg at 11/15 0751 [Provider Held] pravastatin (PRAVACHOL) tablet 20 mg [...] PO, TID Given, 150 mg at 11/15 850 senna-docusate (SENNA-S) 8.6-50 MG tablet 2 tablet 2 tablet, PO, BID Given, 2 tablet at 11/15 848 thiamine mononitrate (VITAMIN B-1) tablet 200 mg [...] by 8 bpm Confirmed by MD Claude, [facility] ([id number]) on 11/07/2024 6:25:53 PM All additional appropriate imaging studies within the past 24 hours reviewed - images reviewed and independently interpreted. Sign Devon Lazo MD [facility] [place] 11/15/2024 1:00 PM * Elida Ab OT - 11/15/2024 9:41 AM EST Occupational [...] Patient is highly motivated to return to [facility] and reports good family support and DME. [...] level of independence with self-care tasks. Current [facility] Daily Activity Score: 17 Precautions/Restrictions: fall, other [...] Progressive Mobility Level Achieved Transferring to Chair [facility] Daily Activity Putting on and taking off Lower Body Clothing? 3 Bathing (including washing/rinsing/drying)? 2 Toileting (includes using toilet, bedpan, or urinal)? 2 Putting on and taking off upper body clothing? 3 Taking care of personal grooming such as brushing teeth? 3 Eating meals? 4 [facility] Daily Activity Score 17 Therapy Assessment/Plan (OT) [...] Villalpando MD - 11/14/2024 2:48 PM EST [facility] PROGRESS NOTE Assessment & Plan Brief [...] 5,000 Units, Subcutaneous, Q8H JUDSON insulin lispro, 1-5 Units, Subcutaneous, TID with [...] 61 63 61 Resp: 16 18 18 Temp: 96.6 ??F (35.9 ??C) [...] Villalpando MD - 11/13/2024 3:26 PM EST [facility] PROGRESS NOTE Assessment & Plan Brief [...] complicated with MRSA and VRE/Enterococcus faecalis/VCM bacteremia andcardiology was consulted. 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 He developed acute hypoxic respiratory failure secondary to CHF exacerbation and transferred to medical stepdown unit for further management and was aggressively diuresed with Bumex [...] Villalpando MD 11/13/2024 3:26 PM * Valencia LauSHUBHAM - 11/13/2024 11:03 AM EST Images from the original note were not included. 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 Underlying rhythm: SB @ [...] pain, dizziness, palpitations, syncope Objective: Telemetry Reviewed: DIRECTOR PUBLIC POLICY 60 Last Vitals Pulse:63,Resp:18,BP:116/60,SpO2:96 %,Weight:120 kg (264 [...] Q6H JUDSON Given, 975 mg at 11/13 0032 amiODARONE (PACERONE) tablet 200 mg 200 mg, [...] IVPB 10 mg/kg, IV, Q24H Stopped, 11/12 1527 donepezil (ARICEPT) tablet 10 mg 10 mg, [...] breakfast Given, 2 mg at 11/04 756 heparin (porcine) 5000 unit/mL injection 5,000 Units 5,000 Units, SC, Q8H JUDSON Given, 5,000 Units at 11/13 825 [Provider Held] insulin lispro (HumaLOG/ADMELOG) 100 units/mL [...] & 2AM Given, 1 Units at 11/10 203 insulin lispro (HumaLOG/ADMELOG) 100 units/mL injection 1-6 Units 1-6 Units, SC, Q4H JUDSON Given, 1 Units at 11/13 0825 [Provider Held] insulin lispro (HumaLOG/ADMELOG) 100 units/mL injection 5 Units On hold since Fri11/10/2024 at 0752 until manually unheld; held by POOJA Mas-CHolcipriano Reason: NPO On hold since Fri11/10/2024 at [...] 4x Daily Given, 1,000 mg at 11/13 08 metoPROLOL TARTRATE (LOPRESSOR) tablet 50 mg 50 [...] Compared to previous outside study report from [facility] on 08/05/2024, Mitral and tricuspid regurgitation were [...] Villalpando MD - 11/12/2024 4:39 PM EST [facility] PROGRESS NOTE Assessment & Plan Brief [...] other active symptoms. Objective Vitals: 11/11/24 1638 11/11/24 2026 11/11/24 2108 11/12/24 0027 BP: 128/60 133/60 135/63 [...] Danielle MD - 11/12/2024 3:33 PM EST [facility] ID Progress Note Length of Stay: [...] next week. At this time, he has amber ared his blood cultures, so I do think the ceftaroline can be stopped. I would continue him on daptomycin. Plan -Continue daptomycin -Stopped ceftaroline -Await results from MRI brain -EP planning device extraction and Micra implantation, likely next week, await final timing Time spent on chart/literature review, [id number] discussion and exam with patient, and documentation: [...] Resolved Problems: Noemí Danielle MD Available on Myo[employer] 11/12/2024 3:33 PM * POOJA Allen - 11/12/2024 11:59 AM EST Images from the original note were not included. 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 Underlying rhythm: SB @ [...] No lightheadedness or dizziness. Objective: Telemetry Reviewed: DIRECTOR PUBLIC POLICY 60 Last Vitals Pulse:67,Resp:18,BP:(!) 113/53,SpO2:(!) 91 %,Weight:120 [...] empagliflozin (JARDIANCE) 25 mg On hold since [facility] 11/04/2024 at 1503 until manually unheld; held by Gayle Rey Reason: Pre-procedure On hold since Fri11/04/2024 at 1503 until manually unheld (Needs Review) Hold reason: Pre-procedure 25 mg, PO, Daily Given, 25 mg at 11/04 0756 folic acid (FOLVITE) tablet 1 mg 1 mg, PO, Daily Given, 1 mg at 11/12 09 [Provider Held] glimepiride (AMARYL) tablet 2 [...] 0752 until manually unheld; held by POOJA Mas-CHold Reason: NPO On hold since Fri11/10/2024 at [...] PO, TID Given, 150 mg at 11/12 936 senna-docusate (SENNA-S) 8.6-50 MG tablet 2 tablet 2 tablet, PO, BID Given, 2 tablet at 11/12 934 thiamine mononitrate (VITAMIN B-1) tablet 200 mg 200 mg, PO, Daily Given, 200 mg at 11/12 935 Continuous Medication Ordered Dose/Rate, Route, Frequency Last Action bumetanide (BUMEX) IV infusion 12.5 mg in 50 mL 1 mg/hr, IV, Continuous Stopped, 11/11 1512 PRN Medication Ordered Dose/Rate, Route, Frequency Last [...] Compared to previous outside study report from [facility] on 08/05/2024, Mitral and tricuspid regurgitation were [...] adjunctive medication options are becoming limited. Meeta Jorge 2024 PharmD Candidate Associated attestation - Filippo Sims PharmCipriano - 11/12/2024 12:53 PM EST I agree with the deliverer pharmacy note. * Elida Berger, OT - 11/12/2024 [...] Patient is highly motivated to return to [facility] and reports good family support and DME. [...] level of independence with self-care tasks. Current [facility] Daily Activity Score: 16 Precautions/Restrictions: fall, isolation: [...] Progressive Mobility Level Achieved Transferring to Chair [facility] Daily Activity Putting on and taking off Lower Body Clothing? 2 Bathing (including washing/rinsing/drying)? 2 Toileting (includes using toilet, bedpan, or urinal)? 2 Putting on and taking off upper body clothing? 3 Taking care of personal grooming such as brushing teeth? 3 Eating meals? 4 [facility] Daily Activity Score 16 Therapy Assessment/Plan (OT) [...] ordered for function. Presenting rhythm: AP / DIRECTOR PUBLIC POLICY @ 60 bpm. Underlying rhythm: SB @ [...] of 40-44% and patent foramina well with [id number] shunting and moderate to severe TR MRI [...] IV to p.o. antibiotics Telemetry: Paced rhythm Brittany Of note, some information is being carried [...] concerns validated and emotional support provided; nurse international operations manager made aware. Resources: Patient informed of the following resources and how to request it: Integrative Medicine Services available at [facility], including, Massage Therapy, and Reiki/Energy Therapy Social [...] included. Coverage for Dr. Mtz [facility] Name: Blas Genao Age: [...] faecium -10/27: Left foot wound culture at [facility]: MRSA, Enterococcus faecalis, VRE, Corynebacterium species and [...] nontender Left BKA stump site covered in national accounts sales garment and ampu sheild LABORATORY AND DIAGNOSTIC [...] was performed in office at [facility] and images reviewed by orthopedic provider. Any findings are documented within ambulatory encounter note on date of service. Current Medications: Current Facility-Administered Medications Medication Dose Route Frequency Provider Last Rate Last Admin acetaminophen (TYLENOL) tablet 975 mg 975 mg Oral Q6H JUDSON Chakraborty MD 975 mg at 11/11/24 0936 amiODARONE (PACERONE) tablet 200 mg 200 mg Oral Daily Claire Garibay PA-C 200 mg at 11/11/24 0937 amLODIPine (NORVASC) tablet 10 mg 10 mg Oral Daily Rafiq Chakraborty MD 10 mg at 11/11/24 0937 [Provider Held] aspirin enteric coated (ECOTRIN LOW STRENGTH) tablet 81 mg 81 mg Oral Q12H JUDSON Chakraborty MD 81 mg at 11/10/24 0914 [...] Tube Oral Q15 Min PRN Kayla Orona, BILL ADJUSTER Or dextrose 50 % solution 12.5 g 12.5 g Intravenous Q15 Min PRN Kayla Orona, BILL ADJUSTER Or dextrose 50 % solution 25 g 25 g Intravenous Q15 Min PRN Kayla Orona, BILL ADJUSTER Or glucagon (GLUCAGEN) injection 1 mg 1 mg Intramuscular Daily PRN Kayla Orona APRN donepezil (ARICEPT) tablet 10 mg 10 mg Oral QAM Rafiq Charkaborty MD 10 mg at 11/11/24 0936 [Provider [...] injection 5,000 Units 5,000 Units Subcutaneous Q8H [facility] Haven Bach APRN 5,000 Units at 11/11/24 [...] 2AM Eunice Garrison APRN 1 Units at 11/10/24 2038 insulin lispro (HumaLOG/ADMELOG) 100 units/mL injection 1-6 Units 1-6 Units Subcutaneous Q4H [facility] POOJA Crews [Provider Held] insulin lispro (HumaLOG/ADMELOG) 100 units/mL injection 5 Units 5 Units Subcutaneous TID with meals Eunice Garrison APRN 5 Units at 11/09/24 1313 ipratropium-albuterol (DUONEB) [...] not compromised This report was generated using Jobster Speaking dictation software. Although every attempt has been made by the provider to proofread this document, occasional misspellings and typographical errors Sign Chris [place] MD, [facility] Infectious Diseases Available via [employer] 11/11/2024 10:52 AM * Olimpia Lainez, FanyD - 11/11/2024 9:29 AM EST Patient: Blas [...] 4 mg q3h PRN for severe pain ([id number]). 1x dose of liquid dilaudid 1mg given [...] - Continue nicotine patch - Repeat CXR /12 PM with improving bilateral pulmonary congestion, final [...] Compared to previous outside study report from [facility] on 08/05/2024, Mitral and tricuspid regurgitation were [...] of Pulmonary, Critical Care, and Sleep Medicine [address] [place] [address], [address] [address] Critical Care Progress Note Assessment & Plan [...] supplementation for goal sats >92% Follow-up ABG 7./ Continue diuresis DuoNeb as needed Slight worsening [...] Compared to previous outside study report from [facility] on 08/05/2024, Mitral and tricuspid regurgitation were [...] Case IDs Date Procedure Surgeon Location Status [id number] 11/05/24 LEFT BELOW KNEE AMPUTATION [place] Camejo MD [facility] OR Comp Medications: Medication/MAR Report: Medications Scheduled Medication Ordered Dose/Rate, Route, Frequency Last Action acetaminophen (TYLENOL) tablet 975 mg 975 mg, PO, Q6H JUDSON Given, 975 mg at 11/119 amiODARONE (PACERONE) tablet 200 mg 200 mg, [...] 3.8 CL 101 100 101 99 CO2 24 25 27 ANIONGAP 13 11 11 [...] ruled out. This report was generated using Revolv dictation software. Although every attempt has been made by the provider to proofread this document, occasional misspellings and typographical errors may still be present. Sign: Olurotimi O Veronica, MD 11/11/2024 7:36 AM * POOJA Akers [...] out/in endocarditis Plan -NWB, ampushield and stump national accounts sales -Currently on ASA BID and subcutaneous heparin- [...] redressed with xeroform, abds and applied the national accounts sales garment and ampu shield. Labs: Recent Labs 11/11/24 0200 HCT 26.1* HGB 8.2* CREAT 2.0* Sign POOJA Akers 11/11/2024 6:48 AM * Tonya Gasca LCSW - 11/10/2024 2:01 PM EST [...] time for SW and intervention complete. * hCris [place] MD - 11/10/2024 11:34 AM EST Images from the original note were not included. Coverage for Dr. Mtz [facility] ID Progress Note Name: Blas Genao [...] (2/2) bld cx: G+ cocci in clusters -11/02(2/) blood cultures: MRSA, Enterococcus faecalis, Enterococcus faecium -10/27: Left foot wound culture at [facility]: MRSA, Enterococcus faecalis, VRE, Corynebacterium species and [...] displayed. Lab Results Component Value Date ALT 11/08/2024 AST 24 11/08/2024 ALKPHOS 226 (H) [...] was performed in office at [facility] and images reviewed by orthopedic provider. Any findings are documented within ambulatory encounter note on date of service. Current Medications: Current Facility-Administered Medications Medication Dose Route Frequency Provider Last Rate Last Admin acetaminophen (TYLENOL) tablet 975 mg 975 mg Oral Q6H JUDSON Chakraborty MD 975 mg at 11/10/24 0407 amiODARONE (PACERONE) tablet 200 mg 200 mg Oral Daily Claire Garibay PA-C 200 mg at 11/10/24 0915 amLODIPine (NORVASC) tablet 10 mg 10 mg Oral Daily Rafiq Chakraborty MD 10 mg at 11/10/24 0909 aspirin enteric coated (ECOTRIN LOW STRENGTH) tablet 81 mg 81 mg Oral Q12H JUDSON Chakraborty MD 81 mg at 11/10/24 0914 [...] Tube Oral Q15 Min PRN Kayla Orona, BILL ADJUSTER Or glucose (GLUTOSE 15) 40 % oral gel 75 g 2 Tube Oral Q15 Min PRN Kayla Orona, BILL ADJUSTER Or dextrose 50 % solution 12.5 g 12.5 g Intravenous Q15 Min PRN Kayla Orona, BILL ADJUSTER Or dextrose 50 % solution 25 g 25 g Intravenous Q15 Min PRN Kayla Orona, BILL ADJUSTER Or glucagon (GLUCAGEN) injection 1 mg 1 [...] injection 5,000 Units 5,000 Units Subcutaneous Q8H [facility] Haven Bach APRN 5,000 Units at 11/10/24 0550 HYDROmorphone (DILAUDID) tablet 2 mg 2 mg Oral Q3H PRN Rafiq Chakraborty MD 2 mg at 11/10/24 0902 HYDROmorphone (DILAUDID) tablet 4 mg 4 mg Oral Q3H PRN Rafiq Chakraborty MD 4 mg at 11/09/24 1328 insulin lispro (HumaLOG/ADMELOG) 100 units/mL injection 1-11 Units 1-11 Units Subcutaneous TID withmeals aKyla Orona APRN 5 Units at 11/09/24 1644 insulin lispro (HumaLOG/ADMELOG) 100 units/mL injection 1-4 Units 1-4 Units Subcutaneous NIGHTLY & 2AM Eunice Garrison APRN [Provider Held] insulin lispro (HumaLOG/ADMELOG) 100 units/mL injection 5 Units 5 Units Subcutaneous TID with meals Eunice Garrison APRN 5 Units at 11/09/24 1313 ipratropium-albuterol (DUONEB) [...] not compromised This report was generated using [employer] Naturally Speaking dictation software. Although every attempt has been made by the provider to proofread this document, occasional misspellings and typographical errors Sign Chris [place] MD, FIDSA, [facility] Infectious Diseases Available via [employer] 11/10/2024 11:34 AM * POOJA Jimenez - 11/10/2024 10:45 AM EST Images from the original note were not included. 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: [facility] Assessment & Plan 63 year old male with hypertension, hyperlipidemia, diabetes, CKD stage III, peripheral artery disease, diabetes, foot infection with osteomyelitis, complete heart block s/p dual chamber pacemaker [id number], atrial fibrillation s/p multiple ablations and cardioversions [...] abdomen much less distended Objective: Telemetry Reviewed: DIRECTOR PUBLIC POLICY 60 Last Vitals Pulse:60,Resp:17,BP:130/60,SpO2:94 %,Weight:120 kg (264 [...] PO, BID Given, 150 mg at 11/10 09 calcium citrate (CALCITRATE) tablet 950 mg 950 [...] IVPB 10 mg/kg, IV, Q24H Stopped, 11/09 1613 donepezil (ARICEPT) tablet 10 mg 10 mg, [...] todayat 0752 until manually unheld; held by Nani Rodham, PA-CHold Reason: NPO On hold since today at [...] 4x Daily Given, 1,000 mg at 11/10 909 metoPROLOL TARTRATE (LOPRESSOR) tablet 50 mg 50 [...] Q3H PRN Given, 2 mg at 11/10 0902 HYDROmorphone (DILAUDID) tablet 4 mg 4 mg, [...] Compared to previous outside study report from [facility] on 08/05/2024, Mitral and tricuspid regurgitation were [...] Compared to previous outside study report from [facility] on 08/05/2024, Mitral and tricuspid regurgitation were [...] TOP, Daily Given, 1 each at 11/09 09 cholecalciferol tablet 2,000 Units 2,000 Units, PO, Daily Given, 2,000 Units at 11/09 09 cyanocobalamin (VITAMIN B-12) tablet 2,500 mcg 2,500 mcg, PO, Daily Given, 2,500 mcg at 11/09 09 DAPTOmycin (CUBICIN) 975 mg in sodium chloride (NS) 0.9 % 50 mL IVPB 10 mg/kg, IV, Q24H Stopped, 11/09 1613 donepezil (ARICEPT) tablet 10 mg 10 mg, PO, QAM Given, 10 mg at 11/09 09 [Provider Held] empagliflozin (JARDIANCE) 25 mg On hold since Fri11/04/2024 at 1503 until manually unheld; held by Juaquin Kern MDHold Reason: Pre-procedure On hold since Fri11/04/2024 at 1503 until manually unheld (Needs Review) Hold reason: Pre-procedure 25 mg, PO, Daily Given, 25 mg at 11/04 0756 folic acid (FOLVITE) tablet 1 mg 1 mg, PO, Daily Given, 1 mg at 11/09 09 [Provider Held] glimepiride (AMARYL) tablet 2 [...] of Pulmonary, Critical Care, and Sleep Medicine [address] [place] [address], [address] [address] Critical Care Progress Note Assessment & Plan [...] Compared to previous outside study report from [facility] on 08/05/2024, Mitral and tricuspid regurgitation were [...] Case IDs Date Procedure Surgeon Location Status [id number] 11/05/24 LEFT BELOW KNEE AMPUTATION [place] Camejo [...] empagliflozin (JARDIANCE) 25 mg On hold since [facility] 11/04/2024 at 1503 until manually unheld; held by Juaquin Kern MDHold Reason: Pre-procedure On hold since Fri11/04/2024 at 1503 until manually unheld (Needs Review) Hold reason: Pre-procedure 25 mg, PO, Daily Given, 25 mg at 11/04 0756 folic acid (FOLVITE) tablet 1 mg 1 mg, PO, Daily Given, 1 mg at 11/09 09 [Provider Held] glimepiride (AMARYL) tablet 2 [...] PO, Daily Given, 40 mg at 11/09 914 [Provider Held] pravastatin (PRAVACHOL) tablet 20 mg [...] ruled out. This report was generated using Revolv dictation software. Although every attempt has been [...] were not included. Coverage for Dr. Mtz [facility] ID Progress Note Name: Blas Genao [...] faecium -10/27: Left foot wound culture at [facility]: MRSA, Enterococcus faecalis, VRE, Corynebacterium species and [...] Soft nontender Left BKA stump site in national accounts sales LABORATORY AND DIAGNOSTIC DATA: Lab and imaging [...] displayed. Lab Results Component Value Date ALT 11/08/2024 AST 11/08/2024 ALKPHOS 226 (H) 11/08/2024 BILITOT <0.2 [...] was performed in office at [facility] and images reviewed by orthopedic provider. [...] Q12H JUDSON Chakraborty MD 81 mg at 11/09/24 0914 [...] 1 Tube Oral Q15 Min PRN Kayla OronaMELLY agrawalN Or glucose (GLUTOSE 15) 40 % oral gel 75 g 2 Tube Oral Q15 Min PRN Kayla Orona, BILL ADJUSTER Or dextrose 50 % solution 12.5 g 12.5 g Intravenous Q15 Min PRN Kayla Orona, BILL ADJUSTER Or dextrose 50 % solution 25 g 25 g Intravenous Q15 Min PRN Kayla Orona, BILL ADJUSTER Or glucagon (GLUCAGEN) injection 1 mg 1 [...] injection 5,000 Units 5,000 Units Subcutaneous Q8H [facility] Haven Bach APRN HYDROmorphone (DILAUDID) tablet 2 [...] 5 Units 5 Units Subcutaneous TID with mealsElihenri Garrison APRN 5 Units at 11/08/24 1746 ipratropium-albuterol (DUONEB) [...] PRN Rafiq Chakraborty MD 3 mg at 11/08/242202 [Provider Held] metFORMIN (GLUCOPHAGE) tablet 500 mg 500 mg Oral Daily with breakfast Rafiq Chakraborty MD 500 mg at 11/04/24 0756 methocarbamol (ROBAXIN) tablet 1,000 mg 1,000 mg Oral 4x Daily Rafiq Chakraborty MD 1,000 mg at metoPROLOL TARTRATE (LOPRESSOR) tablet 50 mg 50 mg Oral BID Rafiq Chakraborty MD 50 mg at 11/09/24911 mineral oil (FLEET OIL) enema 1 enema [...] Daily Rafiq Chakraborty MD 1 patch at 11/09/24912 ondansetron (ZOFRAN) injection 4 mg 4 mg Intravenous Q6H PRN Rafiq Chakraborty MD PANTOprazole (PROTONIX) EC tablet 40 mg 40 mg Oral Daily Rafiq Chakraborty MD 40 mg at 11/09/24914 polyethylene glycol (miraLAx) packet 17 g 17 g Oral Daily PRN Rafiq Chakraborty MD [Provider Held] pravastatin (PRAVACHOL) tablet 20 mg 20 mg Oral Daily Rafiq Chakraborty MD pregabalin (LYRICA) capsule 150 mg 150 mg Oral TID Rafiq Chakraborty MD 150 mg at 11/09/24 09 senna-docusate (SENNA-S) 8.6-50 MG tablet 2 tablet 2 tablet Oral BID Rafiq Chakraborty MD 2 tablet at 11/09/24912 thiamine mononitrate (VITAMIN B-1) tablet 200 mg [...] not compromised This report was generated using Jobster Speaking dictation software. Although every attempt has been made by the provider to proofread this document, occasional misspellings and typographical errors Sign Chris Taylor MD, [facility] Infectious Diseases Available via G[employer] 11/09/2024 11:55 AM * Deep Bales PharmD - 11/09/2024 11:17 AM ESTSummary: Pain [...] visit with patient again tomorrow. * Gema Jane, BILL ADJUSTER - 11/09/2024 9:00 AM EST Images from the original note were not included. 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: Photovoltaic Power Systems Engineer at [facility] in [place] Assessment & Plan Assessment Blas Genao is [...] Q12H JUDSON Given, 81 mg at 11/08 223 aztreonam (AZACTAM) 2 g in sodium chloride-MBP (NS) 100 mL IVPB-MBP 2 g, IV, Q8H Stopped, 11/09 075 buPROPion (WELLBUTRIN SR) 12 hr tablet 150 mg 150 mg, PO, BID Given, 150 mg at 11/08 203 calcium citrate (CALCITRATE) tablet 950 mg 950 [...] empagliflozin (JARDIANCE) 25 mg On hold since [facility] 11/04/2024 at 1503 until manually unheld; held [...] by 8 bpm Confirmed by MD Claude, [facility] ([id number]) on 11/07/2024 6:25:53 PM ECHO: (11/04/2024) [...] Compared to previous outside study report from [facility] on 08/05/2024, Mitral and tricuspid regurgitation were not previously reported. Recommend transesophageal echocardiogram if clinically indicated. All additional appropriate imaging studies within the past 24 hours reviewed - images reviewed and independently interpreted. Sign Gema Jane APRN [facility] [place] 11/09/2024 9:00 AM * Roberto Carranza PTA - 11/09/2024 8:40 AM EST Physical Therapy Progress Note Precautions/Restrictions: fall, isolation: contact, pacemaker, other (see comments) (NWB LLE; Skin) Assessment Summary: Patient seen for PT follow up. Performed bed mobility, transfers and sidesteps this session. Required Ax2 for mobility. Adjusted nutmegger for optimal fit and protection of residual limb. Per orders patient is to have national accounts sales on AAT, noted that residual limb was wrapped with srinivas wrap vs national accounts sales. Reached out to orthopedic PA in regards to national accounts sales for patient. Patient is motivated to participate [...] level of independence with functional mobility. Current [facility] Basic Mobility Score: 14 Rehab Plan of [...] Progressive Mobility Progressive Mobility Level Achieved Standing [facility] Basic Mobility Turning from your back to [...] Climbing 3-5 steps with a railing? 1 [facility] Basic Mobility Score 14 Therapy Assessment/Plan (PT) [...] 1, PT) goal ongoing Sign: Roberto Carranza ANESTHESIOLOGIST ATTENDING Associated attestation - Abhinav Pope, PT - 11/09/2024 2:02 PM EST This treatment was performed under the supervision of the supervising PT. Any changes made to treatment plan have been discussed prior with supervising PT. I have read and agree with the documentation provided and any changes made. * Katy Christenarleth Rodgers, OT - 11/09/2024 8:38 AM EST [...] level of independence with self-care tasks. Current [facility] Daily Activity Score: 15 Precautions/Restrictions: fall, isolation: [...] Progressive Mobility Level Achieved Edge of Bed [facility] Daily Activity Putting on and taking off Lower Body Clothing? 2 Bathing (including washing/rinsing/drying)? 2 Toileting (includes using toilet, bedpan, or urinal)? 1 Putting on and taking off upper body clothing? 3 Taking care of personal grooming such as brushing teeth? 3 Eating meals? 4 [facility] Daily Activity Score 15 Therapy Assessment/Plan (OT) [...] OT goal 1 Transfer Goal 1 (OT) [place] Level/Cues Needed (Transfer Goal 1, OT) minimum [...] Pulmonary, Critical Care, and Sleep Medicine [address] [facility] [address] [facility], [address], [place] [address] Critical Care Progress Note Assessment & Plan [...] supplementation for goal sats >92% Follow-up ABG 7./ Continue diuresis DuoNeb as needed Slight worsening [...] Compared to previous outside study report from [facility] on 08/05/2024, Mitral and tricuspid regurgitation were [...] the unit or at the nursing station [facility] floor where the patient is located. My [...] Case IDs Date Procedure Surgeon Location Status [id number] 11/05/24 LEFT BELOW KNEE AMPUTATION Dallas Camejo MD [facility] OR Comp Medications: Medication/MAR Report: Medications Scheduled Medication Ordered Dose/Rate, Route, Frequency Last Action acetaminophen (TYLENOL) tablet 975 mg 975 mg, PO, Q6H JUDSON Given, 975 mg at 11/08 1530 amiODARONE (PACERONE) tablet 200 mg 200 mg, [...] PO, Daily Given, 2,500 mcg at 11/08 09 DAPTOmycin (CUBICIN) 975 mg in sodium chloride (NS) 0.9 % 50 mL IVPB 10 mg/kg, IV, Q24H Stopped, 11/08 1603 donepezil (ARICEPT) tablet 10 mg 10 mg, PO, QAM Given, 10 mg at 11/08 0904 [Provider Held] empagliflozin (JARDIANCE) 25 mg On [...] Daily with breakfast Given, 500 mg at 02/06 0756 methocarbamol (ROBAXIN) tablet 1,000 mg 1,000 [...] ruled out. This report was generated using Revolv dictation software. Although every attempt has been [...] were not included. Coverage for Dr. Mtz [facility] ID Progress Note Name: Blas Genao [...] faecium -10/27: Left foot wound culture at [facility]: MRSA, Enterococcus faecalis, VRE, Corynebacterium species and [...] nontender Extremities: Left BKA site-> No drain. Division Commander in place LABORATORY AND DIAGNOSTIC DATA: Lab [...] displayed. Lab Results Component Value Date ALT 11/08/2024 AST 24 11/08/2024 ALKPHOS 226 (H) [...] was performed in office at [facility] and images reviewed by orthopedic provider. Any findings are documented within ambulatory encounter note on date of service. Current Medications: Current Facility-Administered Medications Medication Dose Route Frequency Provider Last Rate Last Admin acetaminophen (TYLENOL) tablet 975 mg 975 mg Oral Q6H JUDSON Chakraborty MD 975 mg at 11/08/24 09 amiODARONE (PACERONE) tablet 200 mg 200 mg [...] BID Rafiq Chakraborty MD 150 mg at 11/08/24904 calcium carbonate (TUMS) chewable tablet 1,000 mg 1,000 mg Oral Q12H PRN Rafiq Chakraborty MD calcium citrate (CALCITRATE) tablet 950 mg 950 mg Oral BID with meals Rafiq Chakraborty MD 950 mg at 11/08/24903 ceftaroline (TEFLARO) 600 mg in sodium chloride (NS) 0.9 % 250 mL IVPB-WTD 600 mg Intravenous Q8H Rafiq Chakraborty MD 600 mg at 11/08/24922 cholecalciferol tablet 2,000 Units 2,000 Units Oral Daily Rafiq Chakraborty MD 2,000 Units at 11/08/24902 cyanocobalamin (VITAMIN B-12) tablet 2,500 mcg 2,500 mcg Oral Daily Rafiq Chakraborty MD 2,500 mcg at 11/08/24902 DAPTOmycin (CUBICIN) 975 mg in sodium chloride [...] QAM Rafiq Chakraborty MD 10 mg at 11/08/24903 [Provider Held] empagliflozin (JARDIANCE) 25 mg 25 mg Oral Daily Rafiq Chakraborty MD 25 mg at 11/04/24 0756 folic acid (FOLVITE) tablet 1 mg 1 mg Oral Daily Rafiq Chakraborty MD 1 mg at 02/10/25 0905 [Provider Held] glimepiride (AMARYL) tablet 2 [...] Units 1-11 Units Subcutaneous TID withmeals Kayla Orona, BILL ADJUSTER 3 Units at 11/08/24 0901 insulin lispro (HumaLOG/ADMELOG) 100 units/mL injection 1-4 Units 1-4 Units Subcutaneous Nightly Kayla Orona, BILL ADJUSTER 2 Units at 11/07/24 2046 ipratropium-albuterol (DUONEB) [...] BID Rafiq Chakraborty MD 50 mg at 11/08/24 0903 mineral oil (FLEET OIL) enema 1 enema [...] Daily Rafiq Chakraborty MD 1 patch at 11/08/24 09 ondansetron (ZOFRAN) injection 4 mg 4 mg Intravenous Q6H PRN Rafiq Chakraborty MD PANTOprazole (PROTONIX) EC tablet 40 mg 40 mg Oral Daily Rafiq Chakraborty MD 40 mg at 11/08/24 0904 polyethylene glycol (miraLAx) packet 17 g 17 g Oral Daily PRN Rafiq Chakraborty MD [Provider Held] pravastatin (PRAVACHOL) tablet 20 mg 20 mg Oral Daily Rafiq Chakraborty MD pregabalin (LYRICA) capsule 150 mg 150 mg Oral TID Rafiq Chakraborty MD 150 mg at 11/08/24 09 senna-docusate (SENNA-S) 8.6-50 MG tablet 2 tablet 2 tablet Oral BID Rafiq Chakraborty MD 2 tablet at 11/08/24 09 thiamine mononitrate (VITAMIN B-1) tablet 200 mg 200 mg Oral Daily Rafiq Chakraborty MD 200 mg at 11/08/24 0907 ALLERGIES: Allergies Allergen Reactions Lisinopril Other (See [...] not compromised This report was generated using Jobster Speaking dictation software. Although every attempt has been made by the provider to proofread this document, occasional misspellings and typographical errors Sign Chris Taylor MD, FIDSA, FACP [facility] Infectious Diseases Available via [employer] 11/08/2024 10:02 AM * Dallas Camejo MD - 11/08/2024 9:46 AM EST Blas's clinical progress and CP decompensation noted. Appreciate Medical management and CT recommendations. Drain out, wound clean, and Division Commander in place. Will continue to follow. * Gema Dumont SHUBHAM Jane - 11/08/2024 9:38 AM EST Images from the original note were not included. 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: Photovoltaic Power Systems Engineer at [facility] in [place] Assessment & Plan Assessment Blas Genao is [...] Intake/Output Summary (Last 24 hours) at 11/08/2024 0938 Last data filed at 11/08/2024 0400 Gross [...] by 8 bpm Confirmed by MD Claude, [facility] ([id number]) on 11/07/2024 6:25:53 PM ECHO: (11/04/2024) [...] Compared to previous outside study report from [facility] on 08/05/2024, Mitral and tricuspid regurgitation were not previously reported. Recommend transesophageal echocardiogram if clinically indicated. All additional appropriate imaging studies within the past 24 hours reviewed - images reviewed and independently interpreted. Sign Gema Jane APRN [facility] [place] 11/08/2024 9:38 AM * Shay Martin MD - 11/08/2024 7:40 AM EST Images from the original note were not included. Division of Pulmonary, Critical Care, and Sleep Medicine [address] [facility] [address], [address], [place] [address] Critical Care Progress Note Assessment & Plan [...] Resp: Continue rescue BiPAP support Follow-up ABG 7.38/36/22 Continue diuresis DuoNeb as needed CV: Continue [...] Compared to previous outside study report from [facility] on 08/05/2024, Mitral and tricuspid regurgitation were [...] the unit or at the nursing station [facility] floor where the patient is located. My [...] Case IDs Date Procedure Surgeon Location Status [id number] 11/05/24 LEFT BELOW KNEE AMPUTATION Dallas Camejo [...] Q8H New Bag, 2 g at 11/08 517 buPROPion (WELLBUTRIN SR) 12 hr tablet 150 mg 150 mg, PO, BID Given, 150 mg at 11/07 204 calcium citrate (CALCITRATE) tablet 950 mg 950 mg, PO, BID with meals Given, 950 mg at 11/07 165 ceftaroline (TEFLARO) 600 mg in sodium chloride (NS) 0.9 % 250 mL IVPB-WTD 600 mg, IV, Q8H Given, 600 mg at 11/084 cholecalciferol tablet 2,000 Units 2,000 Units, PO, Daily Given, 2,000 Units at 11/07 813 cyanocobalamin (VITAMIN B-12) tablet 2,500 mcg 2,500 mcg, PO, Daily Given, 2,500 mcg at 11/07 814 DAPTOmycin (CUBICIN) 975 mg in sodium chloride (NS) 0.9 % 50 mL IVPB 10 mg/kg, IV, Q24H Stopped, 11/07 1800 donepezil (ARICEPT) tablet 10 mg 10 mg, PO, QAM Given, 10 mg at 11/07 0716 [Provider Held] empagliflozin (JARDIANCE) 25 mg On [...] Hemoglobin, Hematocrit and Platelets Recent Labs 11/06/24 04511/07/24 0813 11/08/24 0005 HGB 8.7* 8.9* 7.9* [...] ruled out. This report was generated using Jobster Speaking dictation software. Although every attempt has [...] left lower extremity, continue LLE nutmegger and national accounts sales. - skin checks to LLE bid - [...] CPAP 15L, sats drop when removed LLE: nutmegger/national accounts sales in place. Thigh soft Labs: Recent Labs [...] were not included. Coverage for Dr. Mtz [facility] ID Progress Note Name: Blas Genao [...] 11/05 -10/27: Left foot wound culture at [facility]: MRSA, Enterococcus faecalis, VRE, Corynebacterium species and [...] regurgitation -11/06 blood cultures = NGTD -11/04 (09/30) blood cultures: Gram-positive cocci in clusters -11/02(10/31) blood cultures: MRSA, [...] -Ceftaroline, 11/05 Plan: Patient was upgraded to [place] 11 stepdown secondary to increased oxygen requirement, [...] was performed in office at [facility] and images reviewed by orthopedic provider. [...] tablet 975 mg 975 mg Oral Q6H [facility] POOJA De Souza 975 mg at 11/07/24 0814 amiODARONE (PACERONE) tablet 200 mg 200 mg Oral BID POOJA De Souza 200 mg at 11/07/24 0817 amLODIPine (NORVASC) tablet 10 mg 10 mg Oral Daily POOJA De Souza 10 mg at 11/07/24 0817 aspirin enteric coated (ECOTRIN LOW STRENGTH) tablet 81 mg 81 mg Oral Q12H [facility] POOJA De Souza81 mg at 11/07/24 0815 bisacodyl (DULCOLAX) EC tablet 5 mg 5 mg Oral Daily PRN POOJA De Souza bisacodyl (DULCOLAX) suppository 10 mg 10 mg Rectal Daily PRN POOJA De Souza bisacodyl (DULCOLAX) suppository 10 mg 10 mg Rectal Daily PRN POOJA De Souza bumetanide (BUMEX) IV infusion 12.5 mg in 50 mL 0.5 mg/hr Intravenous Continuous Juaquin M Kern, MD 2 mL/hr at 11/07/24 1118 0.5 [...] Dallas Rivers PA-C 1,000 mg at 11/07/24 08 metoPROLOL TARTRATE (LOPRESSOR) tablet 50 mg 50 [...] capsule 150 mg 150 mg Oral TID Dallas Rivers PA-C 150 mg at 818 senna (SENOKOT) tablet 2 tablet 2 tablet Oral Nightly POOJA De Souza 2 tablet at 11/06/24 210 senna-docusate (SENNA-S) 8.6-50 MG tablet 2 tablet 2 tablet Oral BID Renea E Cafferty, PA 2 tablet at 11/07/24 0818 sodium chloride (NS) 0.9 % infusion - ADS Override Pull thiamine mononitrate (VITAMIN B-1) tablet 200 mg 200 mg Oral Daily Renea Micky Cafferty, PA 200 mg at 11/07/24 0814 ALLERGIES: Allergies [...] not compromised This report was generated using Jobster Speaking dictation software. Although every attempt has been made by the provider to proofread this document, occasional misspellings and typographical errors Sign Chris Taylor MD, [facility] Infectious Diseases Available via [employer] 11/07/2024 11:30 AM * Lei Diaz MD [...] Objective Past Medical History: Diagnosis Date A-fib ([facility]) Acute osteomyelitis ([facility]) Atrial flutter ([facility]) Cardiac pacemaker 2016 Carotid atherosclerosis Charcot's joint of right foot 2015 Chronic sciatica Complete AV block ([facility]) Diabetes mellitus ([facility]) TYPE II Diabetic foot ulcer ([facility]) ED (erectile dysfunction) Edema ESBL (extended spectrum beta-lactamase) producing bacteria infection GERD (gastroesophageal reflux disease) GI bleed Hyperlipidemia Hypertension Leukocytosis Metabolic bone disease Multiple drug resistant organism (MDRO) culture positive Non healing left heel wound Obesity Osteoarthrosis Osteomyelitis of both feet (HCC) PAD (peripheral artery disease) ([facility]) Primary osteoarthritis of knee Proteinuria Renal osteodystrophy Restless legs syndrome (RLS) no meds, lyrica helps Septic joint of left knee joint (HCC) Sleep apnea BiPap Smoker Stage 3a chronic kidney disease (CKD) ([facility]) Past Surgical History: Procedure Laterality Date AMPUTATION [...] WOUND VAC; Surgeon: Dallas Camejo MD; Location: [facility] OR; Service: Orthopaedics; Laterality: Left; FOOT SURGERY Right x5 INCISION AND DRAINAGE FOOT Left OH PROCEDURE MAZE AFIB OSTECTOMY CALCANEOUS Left 09/10/2024 Procedure: ANKLE PARTIAL CALCANECTOMY; Surgeon: Dallas Camejo MD; Location: [facility] OR; Service: Orthopaedics; Laterality: Left; [...] Continuous Glucose Sensor (FreeStyle Wallace 3 Sensor) [facility] INJECT 1 DEVICE INTO THE SKIN EVERY [...] IVPB 10 mg/kg, IV, Q24H Stopped, 11/06 151 docusate sodium (COLACE) capsule 100 mg 100 [...] PO, Daily Given, 200 mg at 11/07 0814 Continuous Medication Ordered Dose/Rate, Route, Frequency Last [...] extremity Labs: Recent Labs 11/04/24 1119 11/05/24 0711/06/2445711/07/24 0813 HCT 28.0* 28.3* 27.9* 28.9* HGB 8.7* 9.1* 8.7* 8.9* WBC 13.4* 15.9* 11.9* 12.4* PLT 326 353 346 430 . Recent Labs 11/05/24 0712 11/06/2445711/07/24 0813 NA 130* 131* 129* K 3.4 3.8 3.9 CO2 19* 20* 22 CL 96* 99 94* BUN 47* 48* 47* CREAT 2.0* 1.7* 1.5* CALCIUM 7.9* 7.8* 8.3* MG -- 2.5 2.3 PHOS -- 5.1* 4.3 . Recent Labs 11/05/24 07 INR 1.3 . Recent Labs 11/05/24 0712 11/07/24 0813 CKTOTAL 49 -- PROBNP -- 3,427* . Recent Labs 11/05/24 0712 11/06/24 0458 11/07/24 0813 ALT 23 31 29 AST 26 50 [...] to prior. Interpreted by: Roberto Tolbert MD Form Setter Helper Sign: Lei Diaz MD 11/07/2024 11:05 AM * Laura Blanco PT - 11/07/2024 10:42 AM EST Physical [...] will follow up as appropriate. Sign: Laura Blanco PT * Marlin Martinez OT - 11/07/2024 [...] Mode of Treatment occupational therapy Sign: Marlin Martinez OT * Juaquin Kern MD - 11/07/2024 7:25 AM EST Images from the original note were not included. [facility] MEDICINE PROGRESS NOTE Assessment Mr. Blas Genao [...] evaled started BiPap rescuse and transferred to [facility]. Plan Principal Problem: Acute osteomyelitis of left [...] Diet Diabetic/ Calorie Controlled; Carb Counting 60g/meal 6802-2068 kcal DVT Px: SCDs - RIGHT (Knee High) Status: Full Code Consults placed: Procedures Inpatient consult to Internal Medicine Inpatient consult to Infectious Diseases (Specify provider ) Inpatient consult to Social Work Inpatient consult to Anesthesiology Inpatient consult to cardiology ([facility]) Inpatient consult to cardiac surgery Inpatient consult to Cardiology ( Electrophysiology ) Social Work Consult Barriers for [...] Case IDs Date Procedure Surgeon Location Status [id number] 11/05/24 LEFT BELOW KNEE AMPUTATION Dallas Camejo MD [facility] OR Comp Plan WB Status: NWB left lower extremity. Electric Motor Rebuilder stump national accounts sales in place. Appreciate PT and OT recommendations. [...] oriented. LE: Dressing clean, dry, and intact. Electric Motor Rebuilder stump national accounts sales in place. Labs: Recent Labs 11/05/24 0712 11/06/24 0458 HCT 28.3* 27.9* HGB 9.1* 8.7* INR 1.3 -- CREAT 2.0* 1.7* Sign Aditi Tim Amaro PA-C 11/07/2024 8:40 AM * Deep Bales PharmD - 11/06/2024 2:29 PM ESTSummary: Pain Management Glenn Genao is a 63YOM POD#1 s/p L BKA. [...] level of independence with functional mobility. Baseline [facility] Basic Mobility Score: 24 Current [facility] Basic Mobility Score: 16 Objective Data ROM: [...] History Past Medical History: Diagnosis Date A-fib ([facility]) Acute osteomyelitis (HCC) Atrial flutter ([facility]) Cardiac pacemaker 2016 Carotid atherosclerosis Charcot's joint of right foot 2015 Chronic sciatica Complete AV block ([facility]) Diabetes mellitus ([facility]) TYPE II Diabetic foot ulcer ([facility]) ED (erectile dysfunction) Edema ESBL (extended spectrum beta-lactamase) producing bacteria infection GERD (gastroesophageal reflux disease) GI bleed Hyperlipidemia Hypertension Leukocytosis Metabolic bone disease Multiple drug resistant organism (MDRO) culture positive Non healing left heel wound Obesity Osteoarthrosis Osteomyelitis of both feet ([facility]) PAD (peripheral artery disease) ([facility]) Primary osteoarthritis of knee Proteinuria Renal osteodystrophy Restless legs syndrome (RLS) no meds, lyrica helps Septic joint of left knee joint ([facility]) Sleep apnea BiPap Smoker Stage 3a chronic kidney disease (CKD) ([facility]) Past Surgical History: Procedure Laterality Date AMPUTATION Right 2017 TMA AORTOGRAM- ABDOMINAL Left 09/15/2024 Procedure: LEFT LOWER EXTREMITY ANGIOGRAM; Surgeon: Delbert Mcintosh MD; Location: [facility]; Service: Peripheral Vascular; Laterality: Left; BARIATRIC SURGERY 2018 CARDIAC ELECTROPHYSIOLOGY STUDY AND ABLATION x5 CARDIAC PACEMAKER PLACEMENT 2016 CARDIAC SURGERY 2020 watchman device CARDIOVERSION 07/2024 CC PERIPHERAL ANGIOGRAPHY Left 07/2024 LE CHANGE DRESSING WOUND VAC Left 09/10/2024 Procedure: APPLICATION OF WOUND VAC; Surgeon: Dallas Camejo MD; Location: [facility] OR; Service: Orthopaedics; Laterality: Left; FOOT SURGERY Right x5 INCISION AND DRAINAGE FOOT Left [place] PROCEDURE MAZE AFIB OSTECTOMY CALCANEOUS Left 09/10/2024 Procedure: ANKLE PARTIAL CALCANECTOMY; Surgeon: Dallas Camejo MD; Location: [facility] OR; Service: Orthopaedics; Laterality: Left; [...] Progressive Mobility Level Achieved Transferring to Chair [facility] Basic Mobility Turning from your back to [...] Climbing 3-5 steps with a railing? 1 [facility] Basic Mobility Score 16 Therapy Assessment/Plan (PT) [...] PT goal 1 Transfer Goal 1 (PT) [place] Level/Cues Needed (Transfer Goal 1, PT) supervision required Time Frame (Transfer Goal 1, PT) 1 week Activity/Assistive Device (Transfer Goal 1, PT) heg-nd-tzzpp/ucunh-sk-mvg;nio-dx-pswjt/fcvma-oj-lks;wheelchair transfer;walker, rolling Gait Training Goal 1 (PT) Time Frame (Gait Training Goal 1, PT) 1 week [place] Level (Gait Training Goal 1, PT) supervision required Activity/Assistive Device (Gait Training Goal 1, PT) gait (walking locomotion);assistive device use;maintain weight-bearing status;increase energy conservation;increase endurance/gait distance;walker, rolling Distance (Gait Training Goal 1, PT) 20 Wheelchair Locomotion Goal 1 (PT) [place] Level/Cues Needed (Wheelchair Locomotion Goal 1, PT) supervision required Time Frame (Wheelchair Locomotion Goal 1, PT) 1 week Activity (Wheelchair Locomotion Goal 1, PT) wheelchair mobility skills, all Distance Goal 1 (Wheelchair Locomotion, PT) 200 Sign: Jessica Daily PT * Chris Taylor MD - 11/06/2024 10:58 AM EST Images from the original note were not included. Coverage for Dr. Mtz [facility] ID Progress Note Name: Blas Genao [...] amputation -10/27: Left foot wound culture at [facility]: MRSA, Enterococcus faecalis, VRE, Corynebacterium species and [...] Units 11/06/24 0458 11/05/24 0712 11/04/24 1119 11/02/241999 WHITE BLOOD CELL COUNT Thou/uL 11.9* 15.9* [...] 0712 11/04/24 1243 11/04/24 1050 11/02/24 2119 11/02/241999 SODIUM mmol/L -- 131* -- -- 130* [...] was performed in office at [facility] and images reviewed by orthopedic provider. [...] tablet 975 mg 975 mg Oral Q6H [facility] POOJA De Souza 975 mg at 11/05/24 0650 acetaminophen (TYLENOL) tablet 975 mg 975 mg Oral Q8H [facility] POOJA De Souza 975 mg at 11/06/24 0513 amiODARONE (PACERONE) tablet 200 mg 200 mg Oral BID POOJA De Souza 200 mg at 11/06/24 0909 amLODIPine (NORVASC) tablet 10 mg 10 mg Oral Daily POOJA De Souza 10 mg at 11/06/24 0908 aspirin enteric coated (ECOTRIN LOW STRENGTH) tablet 81 mg 81 mg Oral Q12H [facility] POOJA De Souza81 mg at 11/05/24 210 bisacodyl (DULCOLAX) EC tablet 5 mg 5 [...] g 2 Tube Oral Q15 Min PRN POJOA De Souza Or dextrose 50 % solution [...] mL 30 mL Oral Q12H PRN POOJA DeS ouza melatonin tablet 3 mg 3 mg Oral [...] 5 mg 5 mg Oral Q3H PRN OPOJA De Souza oxyCODONE (ROXICODONE) immediate release tablet [...] not compromised This report was generated using [employer] Naturally Speaking dictation software. Although every attempt has been made by the provider to proofread this document, occasional misspellings and typographical errors Sign Chris Taylor MD, SUBHA, [facility] Infectious Diseases Available via [employer] 11/06/2024 10:58 AM * Adama Prasad APRN [...] bumex PO 2mg daily). Continue telemetry Outpatient board writer: Lauren Carlos yovany [place] Subjective/24 hour Events C/o significant pain. No [...] Continuous Glucose Sensor (FreeStyle Wallace 3 Sensor) [facility] [place] INJECT 1 DEVICE INTO THE SKIN EVERY [...] Q8H JUDSON Given, 975 mg at 11/06 05 acetaminophen (TYLENOL) tablet 975 mg 975 mg, PO, Q6H JUDSON Given, 975 mg at 11/05 06 amiODARONE (PACERONE) tablet 200 mg 200 mg, PO, BID Given, 200 mg at 11/06 908 amLODIPine (NORVASC) tablet 10 mg 10 mg, PO, Daily Given, 10 mg at 11/06 907 aspirin enteric coated (ECOTRIN LOW STRENGTH) tablet 81 mg 81 mg, PO, Q12H JUDSON Given, 81 mg at 11/05 2102 [Provider Held] bumetanide (BUMEX) tablet 2 mg On hold since [facility] 11/04/2024 at 1503 until manually unheld; held [...] & 2AM Given, 1 Units at 11/06 0222 insulin lispro (HumaLOG/ADMELOG) 100 units/mL injection [...] with breakfast Given, 500 mg at 11/04 075 metoPROLOL TARTRATE (LOPRESSOR) tablet 50 mg 50 mg, PO, BID Given, 50 mg at 11/06 09 multivitamin with minerals tablet 1 tablet 1 tablet, PO, Daily Given, 1 tablet at 11/06 906 nicotine (NICODERM CQ) 21 MG/24HR patch 1 patch 1 patch, TD, Daily Patch Applied, 1 patch at 11/05 09 PANTOprazole (PROTONIX) EC tablet 40 mg 40 mg, PO, Daily Given, 40 mg at 11/06 09 [Provider Held] pravastatin (PRAVACHOL) tablet 20 [...] PO, BID Given, 150 mg at 11/06 906 senna (SENOKOT) tablet 2 tablet 2 tablet, [...] Daily PRN Given, 750 mg at 11/06 0513 mineral oil (FLEET OIL) enema 1 enema [...] Compared to previous outside study report from [facility] on 08/05/2024, Mitral and tricuspid regurgitation were [...] software and direct typing. Please excuse inadvertent radial drill press operator for plastic and typing errors. Sign Adama Prasad APRN [...] from drain site. New Opsite dressing applied. Dallas Rivers PA-C 11/06/2024 8:47 AM * Dallas Rivers PA-C - 11/06/2024 7:37 AM EST Orthopedic Progress Note Principal Problem: Acute osteomyelitis of left calcaneus (HCC) (POA: Yes) Resolved Problems: Assessment & Plan Assessment Surgical/Procedural Cases on this Admission Case IDs Date Procedure Surgeon Location Status [id number] 11/05/24 LEFT BELOW KNEE AMPUTATION Dallas Camejo MD [facility] OR Comp Plan Multimodal pain management DVT Prophylaxis: ASA 81mg PO BID Weight Bearing Status: NWB PT/OOB HV in place scant output overnight, will discuss with Dr. Camejo Appreciate Medicine, ID and Cardiology recs: for medical comanagement []TATIANNA pending []Blood Cultures Currently on Dapto, Ceftaroline Electric Motor Rebuilder Stump national accounts sales ordered Subjective No complaints. No CP,SOB,N/V. Pain [...] problems. Last drink day before admission CIWA protocol ordered Diet: Diet Diabetic/ Calorie Controlled; Carb Counting 60g/meal [id number] kcal DVT Px: SCDs - RIGHT (Knee High) Status: Full Code Consults placed: Procedures Inpatient consult to Internal Medicine Inpatient consult to Infectious Diseases (Specify provider ) Inpatient consult to Social Work Inpatient consult to Anesthesiology Inpatient consult to cardiology ([facility]) Inpatient consult to cardiac surgery Inpatient [...] Case IDs Date Procedure Surgeon Location Status [id number] 11/05/24 LEFT BELOW KNEE AMPUTATION Dallas Camejo MD [facility] status: NWB LLE Postop antibiotics: per [...] De Souza 11/05/2024 4:11 PM * Nitish Stephen MD - 11/05/2024 2:43 PM EST Images from the original note were not included. [facility] CARDIOLOGY SERVICE CONSULT Date of Consult: 11/05/2024 Patient's Primary Care Physician: Lee Fabian MD Physician Requesting Consult: Orthopedic surgery Primary Photovoltaic Power Systems Engineer: Photovoltaic Power Systems Engineer at [facility] Reason for Consultation: Preop Admit Date: 11/02/2024 [...] doing TATIANNA first is not going to exchange administrator. Leg wounds are like the source that [...] Objective Past Medical History: Diagnosis Date A-fib ([facility]) Acute osteomyelitis ([facility]) Atrial flutter ([facility]) Cardiac pacemaker 2016 Carotid atherosclerosis Charcot's joint of right foot 2015 Chronic sciatica Complete AV block ([facility]) Diabetes mellitus ([facility]) TYPE II Diabetic foot ulcer ([facility]) ED (erectile dysfunction) Edema ESBL (extended spectrum beta-lactamase) producing bacteria infection GERD (gastroesophageal reflux disease) GI bleed Hyperlipidemia Hypertension Leukocytosis Metabolic bone disease Multiple drug resistant organism (MDRO) culture positive Non healing left heel wound Obesity Osteoarthrosis Osteomyelitis of both feet ([facility]) PAD (peripheral artery disease) ([facility]) Primary osteoarthritis of knee Proteinuria Renal osteodystrophy Restless legs syndrome (RLS) no meds, lyrica helps Septic joint of left knee joint ([facility]) Sleep apnea BiPap Smoker Stage 3a chronic kidney disease (CKD) ([facility]) Reviewed Past Surgical History: Procedure Laterality Date [...] WOUND VAC; Surgeon: Dallas Camejo MD; Location: [facility] OR; Service: Orthopaedics; Laterality: Left; FOOT SURGERY Right x5 INCISION AND DRAINAGE FOOT Left OH PROCEDURE MAZE AFIB OSTECTOMY CALCANEOUS Left 09/10/2024 Procedure: ANKLE PARTIAL CALCANECTOMY; Surgeon: Dallas Camejo MD; Location: [facility]; Service: Orthopaedics; Laterality: Left; wOUND PARTIALLY CLOSED [...] Continuous Glucose Sensor (FreeStyle Wallace 3 Sensor) [facility] [place] INJECT 1 DEVICE INTO THE SKIN EVERY [...] Daily Given, 25 mg at 11/04 755 [Provider Held] glimepiride (AMARYL) tablet 2 mg On hold since yesterday at 1503 until manually unheld; held by Juaquin Kern MDHold Reason: Pre-procedure On hold since yesterday at 1503 until manually unheld (Needs Review) Hold reason: Pre-procedure 2 mg, PO, Daily with breakfast Given, 2 mg at 11/04 075 [Transfer Hold] insulin lispro (HumaLOG/ADMELOG) 100 units/mL injection 1-4 Units Medication was not reviewed on transfer 1-4 Units, SC, NIGHTLY & 2AM Given, 2 Units at 11/04 2241 [Transfer Hold] insulin lispro (HumaLOG/ADMELOG) 100 units/mL injection 1-6 Units Medication was not reviewed on transfer 1-6 Units, SC, TID with meals Given, 1 Units at 11/05 908 [Provider Held] metFORMIN (GLUCOPHAGE) tablet 500 mg On hold since yesterday at 1503 until manuallyunheld; held by Juaquin Kern MDHold Reason: Pre-procedure [...] PO, BID Given, 150 mg at 11/05 0909 [Transfer Hold] senna (SENOKOT) tablet 2 tablet [...] days Lab Units 11/05/24 0712 11/04/24 1119 11/02/241999 WHITE BLOOD CELL COUNT Thou/uL 15.9* 13.4* [...] 9 bpm Confirmed by MD Danya, Deep ([id number]) on 11/03/2024 4:30:25 PM Echocardiogram (TTE) Comprehensive [...] Compared to previous outside study report from [facility] on 08/05/2024, Mitral and tricuspid regurgitation were not previously reported. Recommend transesophageal echocardiogram if clinically indicated. All additional appropriate imaging studies within the past 24 hours reviewed - images reviewed and independently interpreted. Sign: Nitish Stephen MD [facility] [place] 11/05/2024 2:43 PM * Hilda Alvarado RN - 11/05/2024 1:36 PM EST Images from the original note were not included. * Hilda Alvarado RN - 11/05/2024 1:00 PM EST Attending Anesthesiologist (JO-ANN) monitoring and aware of vitals during duration of block procedure. * Ena Mtz MD - 11/05/2024 9:42 AM EST Images from the original note were not included. [facility] INFECTIOUS DISEASE Consult progress Note Name: [...] fibrillation status post watchman's device implanted in 2018 Altered mental status in the setting of fever, rule out septic emboli Vision abnormality/? Visual hallucinations? Emboli Status post right TMA with some chronic wounds without any signs of infection WBC: 15.9 platelets: 353 BUN/creatinine: 47/2.0 CK: 49 Blood cultures: 11/02: MRSA, Enterococcus faecalis, Enterococcus faecium 10/27: Left foot wound culture at [facility]: MRSA, Enterococcus faecalis, VRE, Corynebacterium speciesand gram-negative [...] Hours Intravenous Every 6 hours 11/03/24 0851 Robert Mtz MD, FACP, [facility] Infectious Diseases Available via [employer] SUBJECTIVE Tmax 102.3 ??F Fevers overnight [...] not compromised. This report was generated using Jobster Speaking dictation software. Although every attempt has [...] Plan NWB LLE ASA daily, lovenox yesterday, yogesh is on hold for OR Pt discussed [...] replaced his nasal cannula. Labs: Recent Labs 11/02/24199911/04/24 1050 11/04/24 1119 HCT 29.3* -- 28.0* HGB 9.3* -- 8.7* INR 1.3 -- -- CREAT 2.0* 2.0* -- Sign POOJA Akers 11/05/2024 7:45 AM * Juaquin Kern MD - 11/05/2024 7:09 AM EST Images from the original note were not included. [facility] MEDICINE PROGRESS NOTE Assessment Mr. Blas Genao [...] the source of infection. Left BKA 11/05. Patient may need higher level of care [...] problems. Last drink day before admission CIWA protocol ordered Diet: Diet NPO; Meds DVT Px: SCDs - Bilateral (Knee High) Status: Full Code Consults placed: Procedures Inpatient consult to Internal Medicine Inpatient consult to Infectious Diseases (Specify provider ) Inpatient consult to Social Work Inpatient consult to Anesthesiology Inpatient consult to cardiology ([facility]) Barriers for discharge: IV antibiotics, fevers, [...] Juany Ospina RN - 11/04/2024 9:20 AM ESTSummary: Nurse navigator note Initial Ortho Trauma Nurse [...] request it: Integrative Medicine Services available at [facility], including, Massage Therapy, and Reiki/Energy Therapy Social Work Spiritual Care Pharmacist Nutrition Patient declined resources at this time. Demographic Screening: Medical insurance - Medicare Yacht Captain involvement - No. Worker's compensation - No [...] staff will identify along with patient a account contact associate to provide updates. Interventions Provided and reviewed [...] were not included. Coverage for Dr. Mtz CMG ID Progress Note Name: Blas Genao Age: [...] ostectomy. -10/27: Left foot wound culture at [facility]: MRSA, Enterococcus faecalis, VRE, Corynebacterium species and gram-negative bacilli on Gram stain 2. Bacteremia secondary to MRSA/ VRE/Enterococcus faecalis (2/ blood cultures, 11/02) 3. Fever/leukocytosis secondary to [...] from last 7 days Lab Units 11/04/24 0711/03/24212411/03/24174911/02/24211811/02/241999 SODIUM mmol/L -- -- -- -- 130* [...] was performed in office at [facility] and images reviewed by orthopedic provider. [...] Q6H Ena Mtz MD Stopped at 11/04/24 0757 metFORMIN (GLUCOPHAGE) tablet 500 mg 500 mg Oral Daily with breakfast POOJA Arias 500 mg at 11/04/24 0756 methocarbamol (ROBAXIN) tablet 750 mg 750 mg Oral 4x Daily PRN POOJA Arias 750 mg at 11/02/24 1856 metoPROLOL TARTRATE (LOPRESSOR) tablet 50 mg 50 [...] BID POOJA Arias 150 mg at 11/04/24 0756 senna (SENOKOT) tablet 2 tablet 2 tablet Oral Nightly POOJA Arias 2 tablet at 11/03/24 8502 ALLERGIES: Allergies Allergen Reactions Lisinopril Other (See [...] not compromised This report was generated using [employer] Naturally Speaking dictation software. Although every attempt has been made by the provider to proofread this document, occasional misspellings and typographical errors Sign Chris Taylor MD, FIDSA, FACP [facility] Infectious Diseases Available via [employer] 11/04/2024 9:13 AM * Juaquin Kern MD [...] Diet Diabetic/ Calorie Controlled; Carb Counting 60g/meal 2448-3894 kcal Diet NPO; Meds DVT Px: SCDs - Bilateral (Knee High) Status: Full Code Consults placed: Procedures Inpatient consult to Internal Medicine Inpatient consult to Infectious Diseases (Specify provider ) Inpatient consult to Social Work Inpatient consult to Anesthesiology Inpatient consult to cardiology ([facility]) Barriers for discharge: IV antibiotics, fevers, [...] booked: case request and [facility] OR front office spec notified [x]Abx pediatric oncology nurse to OR (2g ancef) []Pre-Op Noes to [...] Sign POOJA Akers 11/04/2024 6:32 AM * Jemma Bull CM - 11/03/2024 3:30 PM EST 11/03/24 1522 General Information Admission Type inpatient Arrived From Non-Health Initial Information Source of Information patient;health record Limitations on Visitors/Phone Calls none Designated Caregiver for Discharge Coordination Do You Have a Designated Caregiver for Discharge? yes Designated Caregiver's Name Blas Genao Caregiver's Relationship to Patient child Living Environment People in Home alone Current Living Arrangements home (1-level, [facility]) Primary Care Provided by self Provides Primary [...] were you homeless or living in a fdc (including now)? N Food Insecurity Within the [...] In the past 12 months has the [employer], gas, oil, or water [employer] threatened to shut off services in your [...] 30 days Current Outpatient/Agency/Support Group homecare agency ([facility] 3 weekly (wound care) & INBOUND SALES MANAGER x 2 weekly) Concerns to be Addressed home safety;discharge planning Patient/Family Anticipates Transition to home with help/services;inpatient rehabilitation facility Patient/Family Anticipated Services at Transition home health care;prison;other (see comments) (inpatient rehab) Transportation Anticipated family or friend will provide;health plan transportation Current Discharge Risk physical impairment;lives alone;dependent with mobility/activities of daily living;chronically ill Discharge Coordination/Tasks Status Post Discharge Needs/Treatments PT;OT;Wound Care;Usp Home Visit Patient/Patient Application Architect Manager Provided With Choices Of Homecare Company Preferences(s) Homecare Company Preference(s) [facility] * Juaquin Kern MD - 11/03/2024 1:17 PM EST Images from the original note were not included. [facility] PROGRESS NOTE Assessment Mr. Blas Genao [...] Diet Diabetic/ Calorie Controlled; Carb Counting 60g/meal 5275-8711 kcal DVT Px: SCDs Status: Full Code [...] []CMG conslt []ID consult []PICC line (ordered) []Electric Motor Rebuilder clinic: pre-amputation education/fitting []Blood cultures: pending []Dressing [...] HGB 9.3* INR 1.3 CREAT 2.0* Sign Ewelnia Ruiz PA-C 11/03/2024 6:20 AM * Casey Eric RN - 11/02/2024 8:07 PM EST Patient arrived around 1800 this evening to [place] [id number] in no acute distress. Placed on contact [...] PAD, RLS and CKD with presents to [facility] inpatient floor for known left calc osteomyelitis [...] (she has seen patient in the past) -Electric Motor Rebuilder to be called for pre-amputation education/fitting in [...] PAD, RLS and CKD3 that presents to [facility] inpatient floor as a direct admit under [...] Objective Past Medical History: Diagnosis Date A-fib ([facility]) Acute osteomyelitis (HCC) Atrial flutter ([facility]) Cardiac pacemaker 2016 Carotid atherosclerosis Charcot's joint of right foot 2015 Chronic sciatica Complete AV block (HCC) Diabetes mellitus (HCC) TYPE II Diabetic foot ulcer ([facility]) ED (erectile dysfunction) Edema ESBL (extended spectrum beta-lactamase) producing bacteria infection GERD (gastroesophageal reflux disease) GI bleed Hyperlipidemia Hypertension Leukocytosis Metabolic bone disease Multiple drug resistant organism (MDRO) culture positive Non healing left heel wound Obesity Osteoarthrosis Osteomyelitis of both feet ([facility]) PAD (peripheral artery disease) ([facility]) Primary osteoarthritis of knee Proteinuria Renal osteodystrophy Restless legs syndrome (RLS) no meds, lyrica helps Septic joint of left knee joint ([facility]) Sleep apnea BiPap Smoker Stage 3a chronic kidney disease (CKD) ([facility]) Past Surgical History: Procedure Laterality Date AMPUTATION [...] WOUND VAC; Surgeon: Dallas Camejo MD; Location: [facility] OR; Service: Orthopaedics; Laterality: Left; FOOT SURGERY Right x5 INCISION AND DRAINAGE FOOT Left OH PROCEDURE MAZE AFIB OSTECTOMY CALCANEOUS Left 09/10/2024 Procedure: ANKLE PARTIAL CALCANECTOMY; Surgeon: Dallas Camejo MD; Location: [facility] OR; Service: Orthopaedics; Laterality: Left; [...] Continuous Glucose Sensor (FreeStyle Wallace 3 Sensor) [facility] [place] INJECT 1 DEVICE INTO THE SKIN EVERY [...] PAD, RLS and CKD with presents to [facility] inpatient floor for known left calc osteomyelitis [...] (she has seen patient in the past) -Electric Motor Rebuilder to be called for pre-amputation education/fitting in [...] PAD, RLS and CKD3 that presents to [facility] inpatient floor as a direct admit under [...] sciatica Complete AV block (HCC) Diabetes mellitus ([facility]) TYPE II Diabetic foot ulcer ([facility]) ED (erectile dysfunction) Edema ESBL (extended spectrum beta-lactamase) producing bacteria infection GERD (gastroesophageal reflux disease) GI bleed Hyperlipidemia Hypertension Leukocytosis Metabolic bone disease Multiple drug resistant organism (MDRO) culture positive Non healing left heel wound Obesity Osteoarthrosis Osteomyelitis of both feet ([facility]) PAD (peripheral artery disease) ([facility]) Primary osteoarthritis of knee Proteinuria Renal osteodystrophy Restless legs syndrome (RLS) no meds, lyrica helps Septic joint of left knee joint ([facility]) Sleep apnea BiPap Smoker Stage 3a chronic kidney disease (CKD) ([facility]) Past Surgical History: Procedure Laterality Date AMPUTATION [...] WOUND VAC; Surgeon: Dallas Camejo MD; Location: [facility] OR; Service: Orthopaedics; Laterality: Left; FOOT SURGERY Right x5 INCISION AND DRAINAGE FOOT Left OH PROCEDURE MAZE AFIB OSTECTOMY CALCANEOUS Left 09/10/2024 Procedure: ANKLE PARTIAL CALCANECTOMY; Surgeon: Dallas Camejo MD; Location: [facility] OR; Service:Orthopaedics; Laterality: Left; wOUND PARTIALLY CLOSED SUPERFICIALLY, WOUND [...] to verify the correct patient, procedure, equipment, customer support assistant and site/side marked as required. Indications: vascular [...] ESTAssociated Order(s): IP CONSULT TO SOCIAL WORK SASKIA reconsulted: Sister Jessica requesting SW consult, pt really upset about diagnosis and wants patient to start focusing on getting better. SASKIA reviewed record. Pt seen by Social Work Services this admission. Pt appointed his son and sister as his Healthcare Representatives. HCR- Blas and Jessica. Copy in Ar[employer]Before. SASKIA to f/u with pt this afternoon. Addendum: 1:30pm SASKIA met with pt today for support. Blas was sitting in his chair, open to visit. Very social and pleasant. Very future oriented with the hopes of a return to work, if he chooses based on his recovery. 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 He is anticipating rehab in a day [...] Note Date of Consult: 11/19/2024 Current Attending: Gianlcua Calles MD Name: Blas Genao Age: 63 y.o. : 1960 Sex: male Assessment and Plan: Chart and imaging reviewed. Patient meets clinical indications for proline placement for tank terminal gauger antibiotics in the setting of osteomyelitis and [...] guidelines to the screening nurse at ext: [phone] Please direct any questions regarding procedure time/ date to the specific imaging modality: US: ext: [phone] CT: ext: [phone] Fluoroscopy: ext: [phone] IR: ext: [phone] Consent: The patient is able to give [...] empagliflozin (JARDIANCE) 25 mg On hold since [facility] 11/04/2024 at 1503 until manually unheld; held [...] injection 5,000 Units On hold since Fri11/16/2024 [id number] until manually unheld; held by Herberth Whitmore [...] PO, Daily Given, 40 mg at 11/19 102 polyethylene glycol (miraLAx) packet 17 g 17 g, PO, Daily Given, 17 g at 11/19 1022 [Provider Held] pravastatin (PRAVACHOL) tablet 20 mg [...] PO, BID Given, 2 tablet at 11/19 1018 thiamine mononitrate (VITAMIN B-1) tablet 200 mg [...] Nightly PRN Given, 3 mg at 11/16 221 naloxone (NARCAN) 0.4 mg/mL injection 0.4 mg [...] (!) 58 (!) 58 (!) 58 Resp: Temp: 96.4 ??F (35.8 ??C) 97 ??F (36.1 ??C) TempSrc: Tympanic Tympanic SpO2: 96% 95% Weight: 99.3 kg (218 lb 14.7 oz) Height: * Anmol Reynoso MD - 11/19/2024 10:09 AM EST Images from the original note were not included. Nephrology Consult Note Blas M Genao Date of Consult: 11/19/2024 Patient's Primary Care Physician: Lee Fabian MD Physician Requesting Consult: Dr Gainluca Calles Reason for Consultation: Acute kidney injury and Chronic kidney disease Assessment & Plan Mr. Blas Genao is a 63-year-old gentleman with past medical history of A- fib, cardiac pacemaker, Watchman device, diabetes, PVD, ESBL, diabetic foot infection/osteomyelitis, s/p right TMA, h/o left calcaneal OM s/p multiple debridements and ostectomy in 08/2024, on wound VAC, as well as CKD stage IIIa 2/ CRsyn (BL Cr 1.4mg/dL, followed by Dr [...] at 1.8mg/dL - regarding the question of care home PICC for Abx. This patient is high [...] History Past Medical History: Diagnosis Date A-fib ([facility]) Acute osteomyelitis (HCC) Atrial flutter ([facility]) Cardiac pacemaker 2016 Carotid atherosclerosis Charcot's joint of right foot 2015 Chronic sciatica Complete AV block ([facility]) Diabetes mellitus ([facility]) TYPE II Diabetic foot ulcer ([facility]) ED (erectile dysfunction) Edema ESBL (extended spectrum beta-lactamase) producing bacteria infection GERD (gastroesophageal reflux disease) GI bleed Hyperlipidemia Hypertension Leukocytosis Metabolic bone disease Multiple drug resistant organism (MDRO) culture positive Non healing left heel wound Obesity Osteoarthrosis Osteomyelitis of both feet ([facility]) PAD (peripheral artery disease) Primary osteoarthritis of knee Proteinuria Renal osteodystrophy Restless legs syndrome (RLS) no meds, lyrica helps Septic joint of left knee joint ([facility]) Sleep apnea BiPap Smoker Stage 3a chronic kidney disease (CKD) ([facility]) Past Surgical History: Procedure Laterality Date AMPUTATION Right 2017 TMA AMPUTATION BELOW KNEE Left 11/05/2024 Procedure: LEFT BELOW KNEE AMPUTATION; Surgeon: Dallas Camejo MD; Location: [facility]; Service: Orthopaedics; Laterality: Left; AORTOGRAM- ABDOMINAL Left 09/15/2024 Procedure: LEFT LOWER EXTREMITY ANGIOGRAM; Surgeon: Delbert Mcintosh MD; Location: [facility]; Service: Peripheral Vascular; Laterality: Left; BARIATRIC SURGERY 2018 CARDIAC ELECTROPHYSIOLOGY STUDY AND ABLATION x5 CARDIAC PACEMAKER PLACEMENT 2016 CARDIAC SURGERY 2020 watchman device CARDIOVERSION 07/2024 CC PERIPHERAL ANGIOGRAPHY Left 07/2024 LE CHANGE DRESSING WOUND VAC Left 09/10/2024 Procedure: APPLICATION OF WOUND VAC; Surgeon: Dallas Camejo MD; Location: [facility]; Service: Orthopaedics; Laterality: Left; EXTRACTION LEAD(S) LASER FROM DUAL PM SYSTEM Left 11/17/2024 Procedure: Extraction lead(s) laser from dual PM system; 73640; Surgeon: Rui Pabon MD; Location: [facility] OR; Service: Electrophysiology; Laterality: Left; FOOT SURGERY Right x5 INCISION AND DRAINAGE FOOT Left INSERT/REPLACE LEADLESS PACEMAKER N/A 11/17/2024 Procedure: Micra Leadless Pacemaker Insert/Replacement; 55617; Surgeon: Rui Pabon MD; Location: Main OR; Service: Electrophysiology; Laterality: N/A; [place] PROCEDURE MAZE AFIB OSTECTOMY CALCANEOUS Left 09/10/2024 Procedure: ANKLE PARTIAL CALCANECTOMY; Surgeon: Dallas Camejo MD; Location: [facility] OR; Service: Orthopaedics; Laterality: Left; wOUND PARTIALLY [...] Continuous Glucose Sensor (FreeStyle Wallace 3 Sensor) [facility] INJECT 1 DEVICE INTO THE SKIN EVERY [...] with meals Given, 950 mg at 11/18 173 cefTRIAXone (ROCEPHIN) 2 g in sodium chloride-MBP [...] injection 5,000 Units On hold since Fri11/16/2024 [id number] until manually unheld; held by Herberth Whitmore [...] PO, Daily Given, 1 tablet at 11/18 1028 nicotine (NICODERM CQ) 21 MG/24HR patch 1 patch 1 patch, TD, Daily Patch Applied, 1 patch at 11/18 1030 PANTOprazole (PROTONIX) EC tablet 40 mg 40 [...] 61 (!) 58 (!) 58 Resp: 18 Temp: [...] found for: TACROLIMUS No results found for: [id number] , TOTVOL , CRCLR , PERIOD No [...] bilateral upper lobe airspace disease Sign: Anmol Reynoso MD 11/19/2024 10:09 AM [facility] Nephrology Office [phone] * Gilda May RN - 11/12/2024 3:[address] 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 Had been using [...] 1500 Number of days: 9 Gilda May RN BSN, CWCN 11/12/2024 3:31 PM * Janice Hazel [...] nighttime disruptions as medically appropriate. Maintain regular [id number]-wbxsc including appropriate lighting in the room. Consider [...] limb. Per orders patient is to have national accounts sales on AAT, noted that residual limb was wrapped with srinivas wrap vs national accounts sales. Reached out to orthopedic PA in regards to national accounts sales for patient. Patient is motivated to participate [...] W/C, EMS transport and home PT. Current [facility] Basic Mobility Score: 14 OT 11/09 Summary: [...] with strength, balance and activity tolerance. Current [facility] Daily Activity Score: 15 Outcomes score [facility] The Activity Measure for Post-Acute Care (AM-PAC) [...] mellitus (HCC) TYPE II Diabetic foot ulcer ([facility]) ED (erectile dysfunction) Edema ESBL (extended spectrum [...] helps Septic joint of left knee joint ([facility]) Sleep apnea BiPap Smoker Stage 3a chronic kidney disease (CKD) ([facility]) Past Surgical History: Procedure Laterality Date AMPUTATION Right 2017 TMA AMPUTATION BELOW KNEE Left 11/05/2024 Procedure: LEFT BELOW KNEE AMPUTATION; Surgeon: Dallas Camejo MD; Location: [facility] OR; Service: Orthopaedics; Laterality: Left; [...] PARTIAL CALCANECTOMY; Surgeon: Dallas Camejo MD; Location: [facility] OR; Service: Orthopaedics; Laterality: Left; wOUND PARTIALLY [...] Continuous Glucose Sensor (FreeStyle Wallace 3 Sensor) [facility] INJECT 1 DEVICE INTO THE SKIN EVERY [...] IV, Q8H Given, 600 mg at 11/11 249 chlorhexidine gluconate 2 % wipes - central [...] empagliflozin (JARDIANCE) 25 mg On hold since [facility] 11/04/2024 at 1503 until manually unheld; held by Juaquin Kern MDHold Reason: Pre-procedure On hold since Fri11/04/2024 at 1503 until manually unheld (Needs Review) Hold reason: Pre-procedure 25 mg, PO, Daily Given, 25 mg at 11/04 755 folic acid (FOLVITE) tablet 1 mg 1 mg, PO, Daily Given, 1 mg at 11/10 09 [Provider Held] glimepiride (AMARYL) tablet 2 [...] with meals Given, 5 Units at 11/10 165 insulin lispro (HumaLOG/ADMELOG) 100 units/mL injection 1-4 [...] amputation. Left BKA with ampushield and stump national accounts sales Skin: No skin breakdown to exposed skin [...] Hazel MD Physical Medicine & Rehabilitation, PGY-2 [facility] Available on Macheen secure chat Associated attestation - Lucho Red [...] ESTAssociated Order(s): IP CONSULT TO NUTRITION SERVICES 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 He typically has an egg sandwich for breakfast and a protein shake (like muscle milk), for lunch he has a egg or chicken salad sandwich and a protein drink, and dinner typically is a protein/starch/vegetable. Factors Affecting Nutritional Intake: Food Related Allergies: NKFA Cultural/Ethnic Preferences: None noted/reported. Food Insecurity Concerns: Never true Weight: Weights (last 10 days) Date/Time Weight Scale 11/02/24 2116 120 kg (264 lb 8 oz) bed [...] Wasting: none Adipose Wasting: none Gastrointestinal: (LBM 11/09) Skin: edema (trace generalized edema) Wound Documentation Reviewed: yes Labs: Na 135, BUN 56, Cr 2, Phos 5.6, poc Gluc 124-222, 09/03/24: A1c 8.7 Diagnostics: reviewed Medications: Bumex IV, tums, calcium citrate, vitamin D, vitamin B12, folic acid, SSI, multivit with minerals, PPI, senna, thiamine Estimated Daily Energy and Protein Needs: Energy Needs: 2080 - 2600 Kcals/day (20 - 25 Kcals/kg) Robinson: RMR (Robinson-St. Jeor Equation): 1920.63 Robinson-St. Jeor (Considerations): 9320-3053 kcal (MSJ +1.2-1.3) based on 104 kg (229 lb 4.5 oz) (reported dry weight) Protein Needs: 117 - 141 gm, (1.5 - 1.8g/kg) based on 78.1 kg (172 lb 2.9 oz) (Adjusted IBW) Fluids: 2500ml based on Estimated/Assessed Carbohydrates Needs: 75 g CHO/meal Current Diet: Diet Diabetic/ Calorie Controlled; Carb Counting 60g/meal 0924-1868 kcal; 2 gm NA (Low Sodium); 2 [...] and cardioversions, s/p Watchman device placement in 2017 who was initially admitted for left BKA. [...] Compared to previous outside study report from [facility] on 08/05/2024, Mitral and tricuspid regurgitation were not previously reported. Recommend transesophageal echocardiogram if clinically indicated. Review of Systems 10 point review of systems was negative except as mentioned in the HPI. Objective Past History Past Medical History: Diagnosis Date A-fib (HCC) Acute osteomyelitis (HCC) Atrial flutter (HCC) Cardiac pacemaker 2016 Carotid atherosclerosis Charcot's joint of right foot 2014 Chronic sciatica Complete AV block (HCC) Diabetes [...] Smoker Stage 3a chronic kidney disease (CKD) ([facility]) Past Surgical History: Procedure Laterality Date AMPUTATION Right 2017 TMA AMPUTATION BELOW KNEE Left 11/05/2024 Procedure: LEFT BELOW KNEE AMPUTATION; Surgeon: Dallas Camejo MD; Location: [facility] OR; Service: Orthopaedics; Laterality: Left; [...] WOUND VAC; Surgeon: Dallas Camejo MD; Location: [facility] OR; Service: Orthopaedics; Laterality: Left; FOOT SURGERY Right x5 INCISION AND DRAINAGE FOOT Left OH PROCEDURE MAZE AFIB OSTECTOMY CALCANEOUS Left 09/10/2024 Procedure: ANKLE PARTIAL CALCANECTOMY; Surgeon: Dallas Camejo MD; Location: [facility] OR; Service: Orthopaedics; Laterality: Left; [...] 2 times a day. 08/31/24 08/31/25 External ProviderMD amLODIPine (NORVASC) 10 MG tablet Take 1 tablet (10 mg total) by mouth. 07/31/24 External Provider, amoxicillin (AMOXIL) 500 MG capsule Take 1 capsule (500 mg total) by mouth 3 (three) times a day. For 1 week for DENTAL procedures 08/31/24 External Provider, amoxicillin (AMOXIL) 500 MG tablet Take 2 [...] Take 2 tablets by mouth every morning. ExternalProvider, ciprofloxacin (CIPRO) 500 MG tablet Take 1 tablet (500 mg total) by mouth 2 (two) times a day. External Provider, Continuous Glucose Sensor (FreeStyle Wallace 3 Sensor) [facility] INJECT 1 DEVICE INTO THE SKIN EVERY [...] mg total) by mouth daily. 09/16/23 External Provider, polyethylene glycol (miraLAx) 17 g packet Take 1 packet (17 g total) by mouth daily. 09/16/24 09/26/24 Bev Mccauley PA-C pravastatin (PRAVACHOL) 20 MG tablet Take 1 tablet (20 mg total) by mouth daily. 07/27/24 External Provider, pregabalin (LYRICA) 150 MG capsule Take 1 capsule (150 mg total) by mouth 2 times a day. 10/20/23 External Provider, senna (SENOKOT) 8.6 MG Tab tablet Take 2 tablets by mouth daily as needed for constipation. 09/16/24 09/23/24 Bev Mccauley PA-C sulfamethoxazole-trimethoprim (BACTRIM DS,SEPTRA DS) 800-160 MG per tablet Take 1 tablet by mouth 2(two) times a day. 10/05/24 Sheila Childs APRN Hospital Medications acetaminophen, 975 mg, Oral, Q6H [...] ??C) Intake/Output Summary (Last 24 hours) at 11/08/20242017 Last data filed at 11/08/2024 1820 Gross [...] assessment, and plan as detailed in the r d manager's note with the following exceptions, clarifications, or [...] ESTAssociated Order(s): IP CONSULT TO SOCIAL WORK SASKIA rec'd an additional consult for pt today for substance use. SASKIA Almodovar met with pt on 11/04/24 and he reported not concerns with his alcohol use. This SW will plan to talk with pt about obtaining a copy of Advance Directives. Pt was transferred to SD Unit due to need for rescue bipap. * Nitish Stephen MD - 11/04/2024 3:31 PM EST Images from the original note were not included. [facility] CARDIOLOGY SERVICE CONSULT Date of Consult: 11/04/2024 Patient's Primary Care Physician: Lee Fabian MD Physician Requesting Consult: Orthopedic surgery Primary Photovoltaic Power Systems Engineer: Photovoltaic Power Systems Engineer at [facility] Reason for Consultation: Preop Admit Date: 11/02/2024 [...] Carotid atherosclerosis Charcot's joint of right foot 2014 Chronic sciatica Complete AV block (HCC) Diabetes mellitus (HCC) TYPE II Diabetic foot ulcer (HCC) ED (erectile dysfunction) Edema ESBL (extended spectrum beta-lactamase) producing bacteria infection GERD (gastroesophageal reflux disease) GI bleed Hyperlipidemia Hypertension Leukocytosis Metabolic bone disease Multiple drug resistant organism (MDRO) culture positive Non healing left heel wound Obesity Osteoarthrosis Osteomyelitis of both feet ([facility]) PAD (peripheral artery disease) ([facility]) Primary osteoarthritis of knee Proteinuria Renal osteodystrophy Restless legs syndrome (RLS) no meds, lyrica helps Septic joint of left knee joint ([facility]) Sleep apnea BiPap Smoker Stage 3a chronic kidney disease (CKD) ([facility]) Reviewed Past Surgical History: Procedure Laterality Date [...] WOUND VAC; Surgeon: Dallas Camejo MD; Location: [facility] OR; Service: Orthopaedics; Laterality: Left; FOOT SURGERY Right x5 INCISION AND DRAINAGE FOOT Left OH PROCEDURE MAZE AFIB OSTECTOMY CALCANEOUS Left 09/10/2024 Procedure: ANKLE PARTIAL CALCANECTOMY; Surgeon: Dallas Camejo MD; Location: [facility] OR; Service: Orthopaedics; Laterality: Left; [...] (two) times a day. Continuous Glucose Sensor (SaludFÁCILyle Wallace 3 Sensor) [facility] INJECT 1 DEVICE INTO THE SKIN EVERY [...] PO, BID Given, 200 mg at 11/04 075 amLODIPine (NORVASC) tablet 10 mg 10 mg, PO, Daily Given, 10 mg at 11/04 075 aspirin enteric coated (ECOTRIN LOW STRENGTH) tablet 81 mg 81 mg, PO, Daily Given, 81 mg at 11/04 075 [Provider Held] bumetanide (BUMEX) tablet 2 mg On hold since today at 1503 until manually unheld; held by Juaquin Kern MDHold Reason: Pre-procedure On hold since today at 1503 until manually unheld Hold reason: Pre-procedure 2 mg, PO, Daily Given, 2 mg at 11/04 075 buPROPion (WELLBUTRIN SR) 12 hr tablet 150 mg 150 mg, PO, BID Given, 150 mg at 11/04 075 cyanocobalamin (VITAMIN B-12) tablet 2,500 mcg 2,500 mcg, PO, Daily Given, 2,500 mcg at 11/04 075 DAPTOmycin (CUBICIN) 975 mg in sodium chloride (NS) 0.9 % 50 mL IVPB 10 mg/kg, IV, Q24H Stopped, 11/04 1418 docusate sodium (COLACE) capsule 100 mg 100 mg, PO, BID Given, 100 mg at 11/04 075 donepezil (ARICEPT) tablet 10 mg 10 mg, PO, QAM Given, 10 mg at 11/04 756 [Provider Held] empagliflozin (JARDIANCE) 25 mg On hold since today at 1503 until manually unheld; held by Gayle Rey Reason: Pre-procedure On hold since today at 1503 until manually unheld Hold reason: Pre-procedure 25 mg, PO, Daily Given, 25 mg at 11/04 755 [Provider Held] glimepiride (AMARYL) tablet 2 mg [...] PO, BID Given, 50 mg at 11/04 756 PANTOprazole (PROTONIX) EC tablet 40 mg 40 mg, PO, Daily Given, 40 mg at 11/04 755 [Provider Held] pravastatin (PRAVACHOL) tablet 20 mg [...] PO, BID Given, 150 mg at 11/04 0756 senna (SENOKOT) tablet 2 tablet 2 tablet, [...] 9 bpm Confirmed by MD Danya, Deep ([id number]) on 11/03/2024 4:30:25 PM Echocardiogram (TTE) Comprehensive [...] Compared to previous outside study report from [facility] on 08/05/2024, Mitral and tricuspid regurgitation were not previously reported. Recommend transesophageal echocardiogram if clinically indicated. All additional appropriate imaging studies within the past 24 hours reviewed - images reviewed and independently interpreted. Sign: Nitish Stephen MD [facility] [place] 11/04/2024 3:31 PM * Hilda Almodovar, [facility] - 11/04/2024 10:57 AM ESTAssociated Order(s): IP CONSULT TO SOCIAL WORK Social Work Consult Note Date of Consult: 11/04/2024 Referral Source: Case Coordination Reason for Consultation: transportation Visit Type: Inpatient Arrived From: Blas Genao is a 63 y.o. male here with a chief complaint of No chief complaint on file.. Acute osteomyelitis of left calcaneus (HCC) [M86.172] 63 yo M admitted for IV antibiotics and L-BKA on 11/05/2024. Patient has a past medical history of A-fib ([facility]), Acute osteomyelitis ([facility]), Atrial flutter ([facility]),Cardiac pacemaker (2015), Carotid atherosclerosis, Charcot's joint of right foot (2014), Chronic sciatica, Complete AV block ([facility]), Diabetes mellitus ([facility]), Diabetic foot ulcer ([facility]), ED (erectile dysfunction), Edema, ESBL (extended spectrum beta-lactamase) producing bacteria infection, GERD (gastroesophageal reflux disease), GI bleed, Hyperlipidemia, Hypertension, Leukocytosis, Metabolic bone disease, Multiple drug resistant organism (MDRO) culture positive, Non healing left heel wound, Obesity, Osteoarthrosis, Osteomyelitis of both feet ([facility]), PAD (peripheral artery disease) ([facility]), Primary osteoarthritis of knee, Proteinuria, Renal osteodystrophy, Restless legs syndrome (RLS), Septic joint of left knee joint ([facility]), Sleep apnea, Smoker, and Stage 3a chronic kidney disease (CKD) ([facility]). Patient has a past surgical history that includes Incision and drainage foot (Left); Bariatric Surgery(2017); Cardioversion (07/2024); Cardiac pacemaker placement (2016); Amputation (Right, 2018); Footsurgery (Right); Total knee arthroplasty (Left, 2016); Cardiac surgery (2020); CC PERIPHERAL ANGIOGRAPHY (Left, [...] and supports. Pt has been working at [employer] in [facility] up until recently. He shared he is deemed disabledunder Social Security Disability though has been working under ticket to work program. 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 Discussed MA Paid Leave. Pt states [...] area. Gave pt info and literature on [employer] [facility]. Pt is familiar with this service though has not used it. He was glad to have the information. Thereis no application process for this service. Anyone 60 or older that lives within [employer]'s service area can use it and make reservations at [phone]. Pt indicates being able to facilitate rides [...] Patient Psychosocial History Demographic Information Preferred Language: Citizen Of [place] Preferred Name: Blas Relationship status: Single Children: Blas Genao Adult Son Legal next of kin [phone] Advance Directive Advance Directives:Advance Directives Does Patient Have Advance Directives?: yes Living Will: yes, copy requested Healthcare Application Architect Manager: yes, copy requested Legally Authorized Application Architect Manager Blas Genao Adult Son Legal next of kin [phone] Living Environment Household Members: pt and 3 pet cats Living Arrangements: House Does the patient have any environmental/safety concerns? No Support System Who currently provides assistance/support for the patient? Son , friends Also has homecare [facility] Quality of support systems? Supportive Patient provides care for: Self and Pet cats has 3 Employment/Finances/Insurance Financial Source: has been salary wages. Pt states he will be back on disability. Has been working through Social Security Ticket to Work Program and will be back [...] from the original note were not included. [facility] INFECTIOUS DISEASE CONSULTATION Date of Consult: [...] Negative 10/27: Left foot wound culture at [facility]: MRSA, Enterococcus faecalis, VRE, Corynebacterium speciesand gram-negative [...] Pharmacy Protocol Orders Pharmacy Protocol Orders 11/02/241942 Robert Mtz MD, FACP, [facility] [address] Infectious Diseases Available via [employer] SUBJECTIVE HISTORY OF PRESENT ILLNESS: This is a 63 y.o. year-old male complex medical history of atrial fibrillation, cardiac pacemaker, Watchman device, diabetes type II, history of ESBL infection, peripheral vascular disease, chronic kidney disease, diabetic foot infection/osteomyelitis, status post right TMA, recent hospitalization at [facility] for left diabetic foot infection. He underwent debridement of the left foot on 08/22 and repeat debridement on 08/24. Intraoperative cultures then revealed Enterococcus, ESBL E. coli and was treated with amoxicillin, meropenem and Flagyl. Fernanda parapsilosis was thought to be a contaminant. He was admitted to [facility] and underwent left calcaneus ostectomy on 09/10/2024, [...] HISTORY: Past Medical History: Diagnosis Date A-fib ([facility]) Acute osteomyelitis (HCC) Atrial flutter ([facility]) Cardiac pacemaker 2016 Carotid atherosclerosis Charcot's joint of right foot 2015 Chronic sciatica Complete AV block ([facility]) Diabetes mellitus ([facility]) TYPE II Diabetic foot ulcer ([facility]) ED (erectile dysfunction) Edema ESBL (extended spectrum beta-lactamase) producing bacteria infection GERD (gastroesophageal reflux disease) GI bleed Hyperlipidemia Hypertension Leukocytosis Metabolic bone disease Multiple drug resistant organism (MDRO) culture positive Non healing left heel wound Obesity Osteoarthrosis Osteomyelitis of both feet ([facility]) PAD (peripheral artery disease) ([facility]) Primary osteoarthritis of knee Proteinuria Renal osteodystrophy Restless legs syndrome (RLS) no meds, lyrica helps Septic joint of left knee joint ([facility]) Sleep apnea BiPap Smoker Stage 3a chronic kidney disease (CKD) ([facility]) PAST SURGICAL HISTORY: Past Surgical History: Procedure [...] WOUND VAC; Surgeon: Dallas Camejo MD; Location: [facility] OR; Service: Orthopaedics; Laterality: Left; FOOT SURGERY Right x5 INCISION AND DRAINAGE FOOT Left OH PROCEDURE MAZE AFIB OSTECTOMY CALCANEOUS Left 09/10/2024 Procedure: ANKLE PARTIAL CALCANECTOMY; Surgeon: Dallas Camejo MD; Location: [facility] OR; Service: Orthopaedics; Laterality: Left; [...] not compromised. This report was generated using [employer] dictation software. Although every attempt has been made by the provider to proofread this document, occasional misspellings and typographical errors may still be present. documented in this encounter Miscellaneous Notes * Plan of Care - Mitesh Caldwell RN - 11/25/2024 7:51 PM EST Patient being discharged home with home services. Patient has a proline and will require tank terminal gauger antibiotics. Option care educated patient on home [...] Aguilar RD - 11/24/2024 12:[address] [facility] Nutrition Note Visit Type: follow up assessment Reason for Dietitian/DTR Visit: at nutrition risk. Reason for Admission: Acute osteomyelitis of left calcaneus (HCC) Pertinent Medical History: Past Medical History: Diagnosis Date A-fib ([facility]) Acute osteomyelitis (HCC) Atrial flutter ([facility]) Cardiac pacemaker 2016 Carotid atherosclerosis Charcot's joint [...] Smoker Stage 3a chronic kidney disease (CKD) ([facility]) Nutrition Diagnosis: Intake: Inadequate oral intake (protein) [...] to be adjusted Nutrition [facility] Nutrition Assessment: Nutrition following. 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 He typically has an egg sandwich for [...] Aspiration precautions Diet Cardiac; Carb Counting 60g/meal 1250-9985 kcal; 2 gm NA (Low Sodium); Low [...] to be available at inpatient rehab for retirement antibiotics. Call ling within reach, safety precautions maintained. Marisel Wray 11/24/2024 5:20 AM * Plan of Care - Nelson Iqbal RN - 11/23/2024 7:15 PM EST Problem: Adult Inpatient Plan of Care Goal: Plan of Care Review Flowsheets (Taken 11/23/2024 191) Plan of Care Reviewed With: patient Progress: no change Outcome Evaluation: Pt offered no complaints throughout shift. IV antibiotics continue. Pending placement at the hospital for special care for d/c. Call ling within reach, safety precautions maintained. Nelson Iqbal 11/23/2024 7:15 PM * Plan of Care - Ellyn Patel RN - 11/23/2024 8:07 AM EST Plan of Care Reviewed With: patient Outcome Evaluation: Patient without complaints during the shift. Sleep study completed on room air.Plan is for discharge to inpatient rehab for retirement antibiotics when bed is available. Ellyn Patel [...] of Care Review Outcome: Progressing Vpaced on zqodorf-Lsirmeho-klxedka on IV Cubicin andIV Rocephin-Plan for PICC placement ?today for retirement anti-Bx's-see flowsheet for full assessment/vs Hansa Navarro [...] with little effect, PRN Dilaudid given per MAR. Patient sleeping intermittently over night with CPAP. [...] from the original note were not included. [address] [address] OPERATIVE REPORT Patient Name: Blas Genao Date of : 1960 Date of Procedure: 11/17/2024 Surgeons and Role: * Rui Pabon MD - Primary * Corbin Lamb APRN - Physician Tangled Yarn Spool Straightener Pre-op Diagnosis: Pacemaker infection, subsequent encounter [T82.7XXD] Post-Op Diagnosis Codes: * Pacemaker infection, subsequent encounter [T82.7XXD] Details of Procedure Procedure(s): Extraction lead(s) laser from dual PM system; 65009 Micra Leadless Pacemaker Insert/Replacement; 99463 Additional Procedures Surgeon: Rui Pabon MD Tangled Yarn Spool Straightener: : : Corbin Lamb APRN Anesthesia: Monitor [...] femoral venous access was obtained. A 12 Fijian sheath was placed in the right femoral vein. Through this an Amplatz stiff wire was advanced under fluoroscopic visualization to the right IJ. Using ultrasound-guided Seldinger technique left femoral venous access was obtained. 8 Fijian sheath was placed in left femoral vein. [...] were pulled back. Active-fixation mechanisms on both [id number] active-fixation leads were retracted. Leads were cut. EZ interlocking stylette's were placed down both right atrial right ventricular leads and deployed. External silk sutures were used for additional support. We then began with a 14 Fijian laser sheath. Under fluoroscopic visualization we started with the right ventricular lead. 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 We were able to progressto the innominate area. Here we reached the innominate region and had significant fibrosis. We then remove the 14 Fijian laser sheath and moved to the right [...] then used the right femoral venous 12 Fijian sheath and Amplatz wire which was in [...] ventricle positioning on the septum. ADAME and MALTESE position confirmed our placement.We did an initial deployment here. Sensing of paced R wave was 12 mV. Device impedance was 520 ohms. Threshold was initially 1.5 V that decreased to 1.2 V. However remained at 1.2 V at 0.24 ms. We therefore retrieved the device back into the deploying sheath. We then movedthe device slightly superior. ADAME and MALTESE position to confirm septal position. Initial testing [...] Z stitch was placed around the 8 Fijian sheath as well and the sheath was [...] Implant Name Type Inv. Item Serial No. Rf Test Technician Lot No. LRB No. Used Action [id number] PACEMAKER CARDIAC MICRA AV2 LDLS [facility] - [id number] Pacemaker [id number] PACEMAKER CARDIAC MICRA AV2 LDLS [facility] [id number] [employer] Left 1 Implanted Specimens: Dual-chamber pacemaker generator; chronic right atrial 5076 active- fixation Medtronic lead; chronic right ventricular 5076 active-fixation Medtronic lead; 2 sewing rings. Disposition: PACU Condition:Good Rui Pabon MD Date: 11/17/2024 Cc: Lee Fabian MD * Plan of Care - Telma Aguilar, RD - 11/17/2024 10:[address] 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 He typically has an egg sandwich for [...] Daily Energy and Protein Needs: Energy Needs: Robinson: RMR (Robinson-St. Jeor Equation): 1920.63 Robinson-St. Jeor (Considerations): 3569-5719 kcal (MSJ +1.2-1.3) based on 104 kg [...] able to make needs known. NPO at NH for pacemaker extraction. Placed on 1L NC [...] with Dr. Daniel Ramos MD Neurology PGY-2 [facility] * Hospital Course - Gianluca Calles MD [...] while on IV antibiotics. Fax results to [phone]. Patient will need to be scheduled [...] R plantar foot, typically followed by wound center/carpenter foreman outpatient near patient's home. Had been using [...] at discharge summary. Tracy Lopez RN, CDS [phone] * Plan of Care - Eunice Khan [...] cardio versions, s/p Watchman device placement in 2017 who is admitted with Enterococcus faecalis and [...] no change Outcome Evaluation: Assumed care from 9828-0920. Pt alert and oriented x4. Seems to [...] and continued daptomycin/ceftaroline. Couldn't go for TATIANNA 2/ hypoxia. EP consulted for possible infected pacer wire. Central line placed for access 2/2 not a PICC candidate yet. O2 requirements [...] Case IDs Date Procedure Surgeon Location Status [id number] 11/05/24 LEFT BELOW KNEE AMPUTATION Dallas Camejo [...] participates appropriately in exam - Last drink 2/, no tox screen done on admission - Continue scheduled tylenol 975mg Q6h for pain, Robaxin 1000 mg QID, Lyrica 150 mg TID - Continue Dilaudid 2 mg Q3h PRN for moderate pain (x2 overnight), 4 mg q3h PRN for severe pain ([id number]). 1x dose of liquid dilaudid 1mg given [...] ischemic changes. Resp: Acute hypoxic respiratory failure 2 volume overload, Hx. MERVIN on CPAP, smoker [...] Compared to previous outside study report from [facility] on 08/05/2024, Mitral and tricuspid regurgitation were [...] help guide diuresis if he returns to [place] before transfer. If he goes directly to [...] options, pt agreeable to referrals in the [facility] area. Referrals placed to [place] [facility] rehabs Recommendation:inpt rehab Problem: Adult Inpatient Plan of Care Goal: Readiness for Transition of Care Outcome: Not Progressing Mary Juanito 11/11/2024 1:15 PM * Plan of Care - Christen Robledo RN - 11/11/2024 7:31 AM EST Plan of Care Reviewed With: patient Progress: no change Outcome Evaluation: A&Ox4. VSS. 6LNC, nocturnal CPAP. Voiding spontaneously. LBM 11/10/24. NPO at midnight. Bumex gtt per NOV. [...] 7:50 PM * Plan of Care - Nani Hollis PA-C - 11/10/2024 4:18 PM EST [...] direct admit with plans for left BKA /2 calcaneal osteomyelitis s/p calcaneal ostectomy 08/2024 with [...] alert and oriented x3 - Last drink 2/ - Continue Tylenol ATC for pain, Robaxin [...] checks q8h Resp: Acute hypoxic respiratory failure 2/ volume overload, Hx. MERVIN on CPAP, smoker [...] confirm endocarditis, plan for TATIANNA 11/08 delayed 2/2 O2 reqs - CT surgery consult pending [...] Compared to previous outside study report from [facility] on 08/05/2024, Mitral and tricuspid regurgitation were [...] IVPB-MBP 2 g, IV, Q8H Stopped, 11/09 075 buPROPion (WELLBUTRIN SR) 12 hr tablet 150 [...] mg, PO, Daily Given, 200 mg at 02/10 0907 Continuous Medication Ordered Dose/Rate, Route, Frequency [...] legal medical record Tracy Lopez RN, CDS [phone] * Provider Documentation Query - Shay Martin [...] Source was left foot infection/ osteomyelitis. 11/04 (2) bld cx: G+ cocci in clusters -11/02(10/31) [...] legal medical record. Tracy Lopez RN, CDS [phone] * Plan of Care - Krystina Felipe [...] in [place] d/t need for rescue NIV. AMPA 16 on 11/06-will needupdated PT/OT notes, pt active with [facility], may need inpt rehab. CM will [...] Compared to previous outside study report from [facility] on 08/05/2024, Mitral and tricuspid regurgitation were [...] Q8H New Bag, 2 g at 11/08 517 buPROPion (WELLBUTRIN SR) 12 hr tablet 150 [...] IVPB 10 mg/kg, IV, Q24H Stopped, 11/07 1800 donepezil (ARICEPT) tablet 10 mg 10 mg, PO, QAM Given, 10 mg at 11/07 0716 [Provider Held] empagliflozin (JARDIANCE) 25 mg On hold since [facility] 11/04/2024 at 1503 until manually unheld; held [...] mg, PO, Daily Given, 40 mg at 02/09 0815 [Provider Held] pravastatin (PRAVACHOL) tablet 20 [...] PO, Q3H PRN Given, 2 mg at 02/09 1825 HYDROmorphone (DILAUDID) tablet 4 mg 4 [...] in reach. * Plan of Care - iLz Wong, YUN - 11/07/2024 6:17 PM EST Pt was taken off NIV after he arrived to [facility]. Pt remains on 4 L NC, Spo2 [...] with breakfast Given, 500 mg at 11/04 075 methocarbamol (ROBAXIN) tablet 1,000 mg 1,000 mg, [...] PO, Daily Given, 200 mg at 11/07 0814 Continuous Medication Ordered Dose/Rate, Route, Frequency Last [...] to prior. Interpreted by: Roberto Tolbert MD Form Setter Helper XR Chest 1 view-Portable (STAT) Final Result Bilateral reticulonodular opacities concerning for interstitial edema. Superimposed atypical infection cannot be ruled out. Interpreted by: David Vogt DO Form Setter Helper I personally reviewed the images and the resident's preliminary report and AGREE with the report as it is now presented (RADPAL1). Echocardiogram (TTE) Comprehensive (Contrast PRN) Final Result Transesophageal Echocardiogram (Results Pending) CT Head w/contrast (Results Pending) Rafiq Chakraborty MD PGY-3 [facility] Internal Medicine [employer] text preferred 11/07/24 11:26 AM * Plan [...] paced. Tolerating PO, voiding in urinal, LBM 2/8. 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 Pt reporting adequate paincontrol this [...] IV antibiotics given. Voiding without difficulty, LBM 2/7. Fall and safety precautions maintained. Plan of care ongoing. Kusum Sánchez 11/06/2024 8:26 PM * Rehab Therapy Consults - Isabel Arroyo, OTR - 11/06/2024 11:43 AM EST Occupational [...] level of independence with self-care tasks. Baseline [facility] Daily Activity Score: 24 Current [facility] Daily Activity Score: 18 Objective Data Cognitive Status: Alert+oriented x4, follows multi step instructions and communicates appropriately Cognitive Function: Attention: intact Memory/recall: intact Safety Awareness: intact, however would benefit from further education and training Insight: good, however would benefit from further education and manager training and development Function: intact Activities of Daily Living: Grooming/Oral [...] History Past Medical History: Diagnosis Date A-fib ([facility]) Acute osteomyelitis ([facility]) Atrial flutter ([facility]) Cardiac pacemaker 2016 Carotid atherosclerosis Charcot's joint of right foot 2015 Chronic sciatica Complete AV block ([facility]) Diabetes mellitus ([facility]) TYPE II Diabetic foot ulcer ([facility]) ED (erectile dysfunction) Edema ESBL (extended spectrum beta-lactamase) producing bacteria infection GERD (gastroesophageal reflux disease) GI bleed Hyperlipidemia Hypertension Leukocytosis Metabolic bone disease Multiple drug resistant organism (MDRO) culture positive Non healing left heel wound Obesity Osteoarthrosis Osteomyelitis of both feet (HCC) PAD (peripheral artery disease) ([facility]) Primary osteoarthritis of knee Proteinuria Renal osteodystrophy [...] WOUND VAC; Surgeon: Dallas Camejo MD; Location: [facility] OR; Service: Orthopaedics; Laterality: Left; FOOT SURGERY Right x5 INCISION AND DRAINAGE FOOT Left OH PROCEDURE MAZE AFIB OSTECTOMY CALCANEOUS Left 09/10/2024 Procedure: ANKLE PARTIAL CALCANECTOMY; Surgeon: Dallas Camejo MD; Location: [facility] OR; Service: Orthopaedics; Laterality: Left; wOUND PARTIALLY CLOSED SUPERFICIALLY, WOUND VAC PLACED TOTAL KNEE ARTHROPLASTY Left 2015 REVISION SAME YEAR/INFECTION Flowsheet Data 11/06/24 1143 [...] Progressive Mobility Level Achieved Transferring to Chair [facility] Daily Activity Putting on and taking off Lower Body Clothing? 2 Bathing (including washing/rinsing/drying)? 3 Toileting (includes using toilet, bedpan, or urinal)? 2 Putting on and taking off upper body clothing? 4 Taking care of personal grooming such as brushing teeth? 3 Eating meals? 4 [facility] Daily Activity Score 18 Therapy Assessment/Plan (OT) [...] OT goal 1 Bathing Goal 1 (OT) [place] Level/Cues Needed (Bathing Goal 1, OT) modified independence Activity/Device (Bathing Goal 1, OT) bathing skills, all Time Frame (Bathing Goal 1, OT) 2 weeks Dressing Goal 1 (OT) Activity/Device (Dressing Goal 1, OT) lower body dressing Time Frame (Dressing Goal 1, OT) 1 week [place]/Cues Needed (Dressing Goal 1, OT) modified independence Toileting Goal 1 (OT) Activity/Device (Toileting Goal 1, OT) toileting skills, all Time Frame (Toileting Goal 1, OT) 1 week [place] Level/Cues Needed (Toileting Goal 1, OT) modified independence Sign: Isabel Arroyo OTR * Plan of Care - Isabel Hinson [...] complex. Tolerating PO, voiding without issue, LBM 2/7 - pt reports passingflatus. Srinivas wrap to [...] andNSR/ Vpaced on tele and pulse ox. ayesha returned from the OR s/p left BKA. [...] from the original note were not included. [facility] [address] [place] [phone] OPERATIVE REPORT Patient Name: Blas Genao Date [...] was brought to the operative suite by aileen, where general anesthesia was induced. He was [...] Type Source Tests Collected by Time Destination [id number] : Left leg below the knee amputation [...] Findings: see op note Anesthesia: general Staff: Slip Feeder: Mary Emery RN Scrub Precepting: Binta Griffith CST Slip Feeder Relief: Cynthia Desai RN Estimated Blood Loss: * No values recorded between 11/05/2024 2:06 PM and 11/05/2024 3:22 PM * Specimens: ID Type Source Tests Collected by Time Destination [id number] : Left leg below the knee amputation [...] Surgeon(s): SHUBHAM Triana MD Anesthesia: general Staff: Slip Feeder: Mary Emery RN Scrub Precepting: Binta Griffith CST Slip Feeder Relief: Cynthia Desai RN Estimated Blood Loss: 25 ml Specimens: ID Type Source Tests Collected by Time Destination [id number] : Left leg below the knee amputation Bone with Tissue Leg, left PATHOLOGY REPORT Dallas Camejo MD 11/05/2024 1411 Drains: Small hemovac 400 mL Tourniquet Time:: [...] cards Consults: Needs a postop eval from [facility]. Already being followed by ID, cards, and [...] Plan for OR today. Will have TATIANNA. Dental Receptionist to follow Naveen Kebede 11/05/2024 9:29 AM * Plan of Care - Nitish Stephen MD - 11/05/2024 9:28 AM EST Worsening [...] doing TATIANNA first is not going to exchange administrator. Leg wounds are like the source that has now seeded the valves and likely have involved thePPM. Will eventually need PP, evaluation and extraction afterwards. - Proceed with BKA - ABx per ID - Will need TATIANNA afterwards - Consider CT head to rule out septic emboli to brain petty with acute mental status change. Nitish Stephen MD [facility] T: [phone] F: [phone] Main Office: [address] [place] [address] * Provider Documentation Query - Juaquin Kern [...] at discharge summary. Tracy Lopez RN, CDS [phone] * Plan of Care - Belkys Diaz [...] Care Review Outcome: Progressing Flowsheets (Taken 11/04/2024 4996) Plan of Care Reviewed With: patient Progress: no change Outcome Evaluation: Pt alert and oriented, denies cp ,sob, VSS, B foot dressing CDI, pt kannan Po, FS covered as oprdered, pain controled with current pain med regiment, IV ABX as ordered, OOB assx1 andwalker, BM Today, cardiology to see pt , plan for TATIANNA tomorrow, plan of care ongoing. Plan of Care Reviewed With: patient Progress: no change Outcome Evaluation: Pt alert and oriented, denies cp ,sob, VSS, B foot dressing CDI, pt kannan Po, FS covered as oprdered, pain controled with current pain med regiment, IV ABX as ordered, OOB assx1 andwalker, BM Today, cardiology to see pt , plan [...] Note Assessment completed with patient and/or patient's loss prevention representative, medical record review and discussion with clinical team. CC met with the patient using social distancing. Provided a Case Coordination packet with contact information, CC pamphlet and Your Next Step: Care Outside the Hospital brochure to the patient and/or patient loss prevention representative. Summary: 63 yo M admitted for [...] home health services. Patient is active with [facility] for SN & INBOUND SALES MANAGER svs. Patient went to a local wound [...] of home health services Caregiver/responsible person supports: Son, Blas, is supportive & involved but lives 45 minutes away from the patient, so he reportedly relies primarily on his good friend, Bry, to help with IADL support, if needed. PCP: Lee Fabian MD - confirmed Anticipated transportation: TBD pending discharge dispo Friend can transport him home, if cleared for home Referrals made: Made per patient/family choice as outlined in the flowsheet -[facility] for resumption of SN & INBOUND SALES MANAGER, requested addition of PT & OT to POC Barriers to discharge: OR 11/05 [employer] - [facility]2[employer] requested ID plan PT/OT evals [...] at Transition: (inpatient rehab) home health care prison other (see comments) Patient/Family Anticipates Transition to: home with help/services inpatient rehabilitation facility Current Outpatient/Agency/Support Group: ([facility] - SN 3 weekly (wound care) & INBOUND SALES MANAGER x 2 weekly) homecare agency [facility] [...] 1:30 PM EDT Appointment [facility] Heart & Vascular [facility] - Electrophysiology [address] [facility] [place] [address] Gretel Hinds, BILL ADJUSTER [address] [address] 12/14/2024 2:00 PM EDT [facility] Visit [facility] [address] [place] [address] Dallas Camejo MD [address] [place] [address] 12/16/2024 8:30 AM EDT Office Visit [facility] Infectious Disease [address] [place] [address] Ena Mtz MD [address], [place] [id number] Pending Results Name Type Priority Associated Diagnoses [...] AM EST PM SINGLE LEAD EVAL WITH PROGRAM,[id number] Routine 11/18/2024 7:45 AM EST COMPLETE BLOOD [...] EST PM DUAL LEAD EVAL WITH PROGRAMMING, [id number] Routine 11/12/2024 1:15 PM EST POCT GLUCOSE, [...] EST PM DUAL LEAD EVAL WITH PROGRAMMING, [id number] Routine 11/11/2024 4:33 PM EST ECHOCARDIOGRAM TRANSESOPHAGEAL [...] PATHOLOGY REPORT Routine 11/05/2024 2:11 PM EST AMPUTATION BELOW KNEE 11/05/2024 1:17 PM EST Acute osteomyelitis of left calcaneus (HCC) Special Needs Thomas Power saw, bone hook, rake retractors, susan retractors POCT GLUCOSE, FINGERSTICK (CHARGE) Routine 11/05/2024 12:54 [...] TEST O RDERALUCILLE Performing Organization Address [facility] de Phone Number [facility] See Below * (ABNORMAL) POCT Glucose, Fingerstick (11/25/2024 8:40 AM EST) POC Glucose 150(H) 65 - 99 mg/dL 11/25/2024 8:41 AM EST Blood specimen / Unknown 11/25/2024 8:40 AM EST 11/25/2024 8:41 AM EST Dallas Camejo MD POINT OF CARE TEST O RDERALUCILLE Performing Organization Address [facility] Phone Number [facility] See Below * (ABNORMAL) POCT Glucose, Fingerstick (11/24/2024 4:56 PM EST) POC Glucose 105(H) 65 - 99 mg/dL 11/24/2024 5:00 PM EST Blood specimen / Unknown 11/24/2024 4:56 PM EST 11/24/2024 5:00 PM EST Dallas Camejo MD POINT OF CARE TEST O RDERALUCILLE Performing Organization Address [facility] de Phone Number HOSPITAL LAB See Below * Glucose, Fingerstick (POCT) (TID AC) (11/24/2024 12:01 PM EST) 11/24/2024 12:0 1 PM EST Corbin Lamb APRN POCT ORDERABLES - DEVICE * (ABNORMAL) POCT Glucose, Fingerstick (11/24/2024 11:37 AM EST) Pathologist [facility] POC Glucose 104(H) 65 - 99 mg/dL 11/24/2024 12:03 PM EST Blood specimen / Unknown 11/24/2024 11:37 AM EST 11/24/2024 12:03 PM EST Dallas Camejo MD POINT OF CARE TEST O JOSEPH Performing Organization Address [facility]/ZIP Co de Phone Number HOSPITAL LAB See Below * (ABNORMAL) POCT Glucose, Fingerstick (11/24/2024 7:52 AM EST) Pathologist [facility] POC Glucose 103(H) 65 - 99 mg/dL 11/24/2024 8:11 AM EST Blood specimen / Unknown 11/24/2024 7:52 AM EST 11/24/2024 8:11 AM EST Dallas Camejo MD POINT OF CARE TEST O JOSEPH Performing Organization Address [facility] Co dc Phone Number [facility] See Below * (ABNORMAL) Complete Blood Count WITHOUT Differential - in AM (11/24/2024 6:56 AM EST) [facility] White Blood Cell Count 10.0 4.0 - 11.0 Thou/uL 11/24/2024 9:12 AM [facility] Platelet Count 366 150 - 450 Thou/uL 11/24/2024 9:12 AM [facility] Hemoglobin 9.0(L) 13.0 - 17.7 g/dL 11/24/2024 9:12 AM [facility] Hematocrit 29.5(L) 39.0 - 54.0 % 11/24/2024 9:12 AM [facility] Red Blood Cell Count 3.25(L) 4.50 - 6.20 Mil/uL 11/24/2024 9:12 AM [facility] MCV 91 80 - 100 fL 11/24/2024 9:12 AM [facility] MCH 27.7 27.0 - 31.0 pg 11/24/2024 9:12 AM [facility] MCHC 30.5 30.0 - 36.0 g/dL 11/24/2024 9:12 AM [facility] RDW 18.0(H) 11.5 - 14.5 % 11/24/2024 9:12 AM [facility] MPV 10.8 7.5 - 12.5 fL 11/24/2024 9:12 AM [facility] Blood Blood specimen / Unknown 11/24/2024 6:56 AM EST 11/24/2024 8:52 AM EST Gianluca Calles MD [place] [address], [address] [address] * (ABNORMAL) Comprehensive Metabolic Panel (AM) (11/24/2024 6:56 AM EST) Glucose 99 65 - 99 mg/dL 11/24/2024 9:28 AM [facility] Comment:Fasting: <100 mg/dL, Non-Fasting: <200 mg/dL (ADA 2004) Blood Urea Nitrogen (BUN) 35(H) 8 - 21 mg/dL 11/24/2024 9:28 AM [facility] Creatinine 1.6(H) 0.5 - 1.3 mg/dL 11/24/2024 9:28 AM [facility] eGFR 48(L) >59 11/24/2024 9:28 AM [facility] Comment:CKD-EPI (2020) in mL /min/1.73 sq meters. Sodium 139 136 - 145 mmol/L 11/24/2024 9:28 AM [facility] Potassium 3.8 3.4 - 5.3 mmol/L 11/24/2024 9:28 AM [facility] Chloride 102 98 - 107 mmol/L 11/24/2024 9:28 AM [facility] CO2 24 22 - 33 mmol/L 11/24/2024 9:28 AM [facility] Calcium 8.9 8.7 - 10.5 mg/dL 11/24/2024 9:28 AM [facility] Alkaline Phosphatase 97 45 - 128 U/L 11/24/2024 9:28 AM [facility] Aspartate Aminotrans (AST) 14 10 - 55 U/L 11/24/2024 9:28 AM [facility] Alanine Aminotrans (ALT) 20 10 - 55 U/L 11/24/2024 9:28 AM [facility] Bilirubin, Total 0.2 0.2 - 1.0 mg/dL 11/24/2024 9:28 AM [facility] Protein, Total 6.7 6.3 - 8.3 g/dL 11/24/2024 9:28 AM [facility] Albumin 3.1(L) 3.4 - 4.8 g/dL 11/24/2024 9:28 AM [facility] BUN/Creatinine Ratio 22 10.0 - 25.0 Ratio 11/24/2024 9:28 AM [facility] Globulin 3.6 1.5 - 3.9 g/dL 11/24/2024 9:28 AM [facility] Albumin/Globulin Ratio 0.9(L) 1.0 - 3.0 Ratio 11/24/2024 9:28 AM [facility] Anion Gap 13 7 - 17 11/24/2024 9:28 AM [facility] Blood Blood specimen / Unknown 11/24/2024 6:56 AM EST 11/24/2024 8:52 AM EST Gianluca Calles MD [place] [address], [place] [id number] * (ABNORMAL) POCT Glucose, Fingerstick (11/23/2024 8:48 PM EST) POC Glucose 116(H) 65 - 99 mg/dL 11/23/2024 8:49 PM EST Blood specimen / Unknown 11/23/2024 8:48 PM EST 11/23/2024 8:49 PM EST Dallas Camejo MD POINT OF CARE TEST O RDERABLES [facility]OSPITAL [facility] See Below * POCT Glucose, Fingerstick (11/23/2024 4:35 PM EST) Pathologist [facility] POC Glucose 84 65 - 99 mg/dL 11/23/2024 4:36 PM EST Blood specimen / Unknown 11/23/2024 4:35 PM EST 11/23/2024 4:36 PM EST Dallas Camejo MD POINT OF CARE TEST O RDERALUCILLE [facility] See Below * (ABNORMAL) POCT Glucose, Fingerstick (11/23/2024 11:35 AM EST) Pathologist [facility] POC Glucose 151(H) 65 - 99 mg/dL 11/23/2024 11:36 AM EST Blood specimen / Unknown 11/23/2024 11:35 AM EST 11/23/2024 11:36 AM EST Dallas Camejo MD POINT OF CARE TEST O JOSEPH Performing Organization Address City/[facility] Co de Phone Number HOSPITAL LAB See Below * Influenza A/B, RSV, SARS-CoV-2 BALJINDER Multiplex (FLUVID) (11/23/2024 10:45 AM EST) [facility] Influenza A Virus Not Detected Not Detected 11/23/2024 12:00 PM [facility] Influenza B Virus Not Detected Not Detected 11/23/2024 12:00 PM [facility] SARS-CoV-2 Not Detected Not Detected 11/23/2024 12:00 PM [facility] Respiratory Syncytial Virus Not Detected Not Detected 11/23/2024 12:00 PM [facility] Comment Negative results do not preclude SARS-CoV-2, Influenza or RSV infection and should not be used as the sole basis for treatment or other patient management decisions. 11/23/2024 12:00 PM [facility] Swab, Nasopharyngeal Nasopharyngeal swab / Unknown 11/23/2024 10:45 AM EST 11/23/2024 11:08 AM EST Gianluca Calles MD MICROBIOLOGY - GENER AL ORDERABLES Performing Organization Address [facility] [place] [address], [place] [address] * (ABNORMAL) POCT Glucose, Fingerstick (11/23/2024 7:34 AM EST) POC Glucose 126(H) 65 - 99 mg/dL 11/23/2024 7:35 AM EST Blood specimen / Unknown 11/23/2024 7:34 AM EST 11/23/2024 7:35 AM EST Dallas Camejo MD POINT OF CARE TEST O RDERABLES Performing Organization Address [facility] Co de Phone Number HOSPITAL LAB See Below * (ABNORMAL) C-REACTIVE PROTEIN (11/23/2024 6:43 AM EST) C-Reactive Protein 4.88(H) 0 - 0.49 mg/dL 11/23/2024 11:53 AM EST [facility] 11/23/2024 6:43 AM EST 11/23/2024 6:49 AM EST Gianluca Calles MD LAB BLOOD ORDERABLES Performing Organization Address [facility] [place] [address], [place] [address] * (ABNORMAL) Erythrocyte Sedimentation Rate (ESR) (11/23/2024 6:43 AM EST) Erythrocyte Sediment Rate (ESR) 62(H) <20 MM/HR 11/23/2024 12:07 PM EST [facility] Blood specimen / Unknown 11/23/2024 6:43 AM EST 11/23/2024 6:49 AM EST Gianluca Calles MD LAB BLOOD ORDERABLES Performing Organization Address [facility] [place] [address], [place] [address] * (ABNORMAL) HEPATIC FUNCTION PANEL (11/23/2024 6:43 AM EST) Alkaline Phosphatase 103 45 - 128 U/L 11/23/2024 11:53 AM [facility] Aspartate Aminotrans (AST) 22 10 - 55 U/L 11/23/2024 11:53 AM [facility] Alanine Aminotrans (ALT) 28 10 - 55 U/L 11/23/2024 11:53 AM [facility] Bilirubin, Total 0.2 0.2 - 1.0 mg/dL 11/23/2024 11:53 AM [facility] Protein, Total 6.6 6.3 - 8.3 g/dL 11/23/2024 11:53 AM [facility] Albumin 3.1(L) 3.4 - 4.8 g/dL 11/23/2024 11:53 AM [facility] Bilirubin, Direct 0.1 0 - 0.2 mg/dL 11/23/2024 11:53 AM [facility] Globulin 3.5 1.5 - 3.9 g/dL 11/23/2024 11:53 AM [facility] Albumin/Globulin Ratio 0.9(L) 1.0 - 3.0 Ratio 11/23/2024 11:53 AM [facility] 11/23/2024 6:43 AM EST 11/23/2024 6:49 AM EST Gianluca Calles MD LAB BLOOD ORDERABLES Performing Organization Address City/State/[facility] [place] [address], [place] [address] * CREATINE KINASE (CK) (11/23/2024 6:43 AM EST) Creatine Kinase (CK) 36 24 - 204 U/L 11/23/2024 11:53 AM [facility] 11/23/2024 6:43 AM EST 11/23/2024 6:49 AM EST Gianluca Calles MD LAB BLOOD ORDERABLES [facility] [address] [place] [address], [address] [address] * (ABNORMAL) Complete Blood Count WITHOUT Differential - in AM (11/23/2024 6:43 AM EST) White Blood Cell Count 10.8 4.0 - 11.0 Thou/uL 11/23/2024 7:01 AM [facility] Platelet Count 353 150 - 450 Thou/uL 11/23/2024 7:01 AM [facility] Hemoglobin 8.7(L) 13.0 - 17.7 g/dL 11/23/2024 7:01 AM [facility] Hematocrit 28.3(L) 39.0 - 54.0 % 11/23/2024 7:01 AM [facility] Red Blood Cell Count 3.14(L) 4.50 - 6.20 Mil/uL 11/23/2024 7:01 AM [facility] MCV 90 80 - 100 fL 11/23/2024 7:01 AM [facility] MCH 27.7 27.0 - 31.0 pg 11/23/2024 7:01 AM [facility] MCHC 30.7 30.0 - 36.0 g/dL 11/23/2024 7:01 AM [facility] RDW 18.0(H) 11.5 - 14.5 % 11/23/2024 7:01 AM [facility] MPV 10.4 7.5 - 12.5 fL 11/23/2024 7:01 AM [facility] Blood Blood specimen / Unknown 11/23/2024 6:43 AM EST 11/23/2024 6:49 AM EST Gianluca Calles MD LAB BLOOD ORDERABLES [address] [address], [address] [address] * Magnesium (AM) (11/23/2024 6:43 AM EST) Pathologist [facility] Magnesium 2.2 1.6 - 2.7 mg/dL 11/23/2024 7:22 AM [facility] Blood Blood specimen / Unknown 11/23/2024 6:43 AM EST 11/23/2024 6:49 AM EST Gianluca Calles MD LAB BLOOD ORDERABLES [address] [address], [address] [address] * (ABNORMAL) Basic Metabolic Panel (AM) (11/23/2024 6:43 AM EST) Glucose 114(H) 65 - 99 mg/dL 11/23/2024 7:22 AM [facility] Comment:Fasting: <100 mg/dL, Non-Fasting: <200 mg/dL (ADA 2004) Blood Urea Nitrogen (BUN) 31(H) 8 - 21 mg/dL 11/23/2024 7:22 AM [facility] Creatinine 1.5(H) 0.5 - 1.3 mg/dL 11/23/2024 7:22 AM [facility] eGFR 52(L) >59 11/23/2024 7:22 AM [facility] Comment:CKD-EPI (2020) in mL /min/1.73 sq meters. Sodium 140 136 - 145 mmol/L 11/23/2024 7:22 AM [facility] Potassium 4.0 3.4 - 5.3 mmol/L 11/23/2024 7:22 AM [facility] Chloride 104 98 - 107 mmol/L 11/23/2024 7:22 AM [facility] CO2 25 22 - 33 mmol/L 11/23/2024 7:22 AM [facility] Anion Gap 11 7 - 17 11/23/2024 7:22 AM [facility] Calcium 9.0 8.7 - 10.5 mg/dL 11/23/2024 7:22 AM [facility] BUN/Creatinine Ratio 21 10.0 - 25.0 Ratio 11/23/2024 7:22 AM [facility] Blood Blood specimen / Unknown 11/23/2024 6:43 AM EST 11/23/2024 6:49 AM EST Gianluca Calles MD LAB BLOOD ORDERABLES [address] [address], [address] [address] * (ABNORMAL) POCT Glucose, Fingerstick (11/22/2024 9:02 PM EST) POC Glucose 138(H) 65 - 99 mg/dL 11/22/2024 9:02 PM EST Blood specimen / Unknown 11/22/2024 9:02 PM EST 11/22/2024 9:03 PM EST Dallas Camejo MD POINT OF CARE TEST O RDERABLES Performing Organization Address City/[facility]/ZIP Co de Phone Number [facility] See Below * (ABNORMAL) POCT Glucose, Fingerstick (11/22/2024 4:36 PM EST) POC Glucose 128(H) 65 - 99 mg/dL 11/22/2024 4:37 PM EST Blood specimen / Unknown 11/22/2024 4:36 PM EST 11/22/2024 4:37 PM EST Dallas Camejo MD POINT OF CARE TEST O RDERABLES Performing Organization Address City/[facility]/ZIP Co de Phone Number HOSPITAL LAB See Below * PM LEADLESS SINGLE-CARDIAC CHAMBER EVAL W/PROGRAM (IN PERSON), [id number] (11/22/2024 2:20 PM EST) Date Time Interrogation Session [id number] 5,809 PACEART Implantable Pulse Generator Rf Test Technician [employer]onic PACEART Implantable Pulse Generator Model [id number] Micra AV2 PACEART Implantable Pulse Generator Serial Number [id number] PACEART Implantable Pulse Generator Type Pacemaker PACEART Implantable Pulse Generator Implant Date 20,250,218,19 0,000 PACEART Otf Setting Mode (NBG Code) [...] last reset 99.86 % PACEART Otf Statistic DIRECTOR PUBLIC POLICY Percent 100.00 % PACEART Otf Statistic VS Percent 0 % PACEART Anatomical Region Laterality Modality Other 11/22/2024 1:58 PM EST Narrative 11/28/2024 10:40 AM EST Micra AV leadless Pacemaker evaluation completed on B10E. Per patient request and verbal order from SHUBHAM Pitts: LRL increased from 50 bpm to 60 bpm. Presenting rhythm: AM/DIRECTOR PUBLIC POLICY @ 62 bpm. Underlying rhythm: CHB. AM/DIRECTOR PUBLIC POLICY pacing 81%, with total V-pacing 100%. Battery [...] POCT Glucose, Fingerstick (11/22/2024 7:35 AM EST) POC Glucose 194(H) 65 - 99 mg/dL 11/22/2024 7:37 AM EST Blood specimen / Unknown 11/22/2024 7:35 AM EST 11/22/2024 7:37 AM EST Dallas Camejo MD POINT OF CARE TEST O RDERABLES Performing Organization Address City/[facility]/ZIP Co de Phone Number HOSPITAL LAB See Below * Magnesium (AM) (11/22/2024 7:31 AM EST) Pathologist [facility] Magnesium 2.0 1.6 - 2.7 mg/dL 11/22/2024 8:17 AM [facility] Blood (Plasma/Serum) 11/22/2024 7:31 AM EST 11/22/2024 7:54 AM EST Gianluca Calles MD LAB BLOOD ORDERABLES Performing Organization Address [facility] [place] [address], [place] [address] * (ABNORMAL) Complete Blood Count WITHOUT Differential - in AM (11/22/2024 7:31 AM EST) Pathologist [facility] White Blood Cell Count 12.1(H) 4.0 - 11.0 Thou/uL 11/22/2024 8:19 AM [facility] Platelet Count 333 150 - 450 Thou/uL 11/22/2024 8:19 AM [facility] Hemoglobin 8.1(L) 13.0 - 17.7 g/dL 11/22/2024 8:19 AM [facility] Hematocrit 26.2(L) 39.0 - 54.0 % 11/22/2024 8:19 AM [facility] Red Blood Cell Count 2.88(L) 4.50 - 6.20 Mil/uL 11/22/2024 8:19 AM [facility] MCV 91 80 - 100 fL 11/22/2024 8:19 AM [facility] MCH 28.1 27.0 - 31.0 pg 11/22/2024 8:19 AM [facility] MCHC 30.9 30.0 - 36.0 g/dL 11/22/2024 8:19 AM [facility] RDW 18.0(H) 11.5 - 14.5 % 11/22/2024 8:19 AM [facility] MPV 10.5 7.5 - 12.5 fL 11/22/2024 8:19 AM [facility] Blood Blood specimen / Unknown 11/22/2024 7:31 AM EST 11/22/2024 7:54 AM EST Gianluca Calles MD LAB BLOOD ORDERABLES [address] [address], [address] [address] * (ABNORMAL) Basic Metabolic Panel (AM) (11/22/2024 7:31 AM EST) Glucose 178(H) 65 - 99 mg/dL 11/22/2024 8:17 AM [facility] Comment:Fasting: <100 mg/dL, Non-Fasting: <200 mg/dL (ADA 2005) Blood Urea Nitrogen (BUN) 36(H) 8 - 21 mg/dL 11/22/2024 8:17 AM [facility] Creatinine 1.6(H) 0.5 - 1.3 mg/dL 11/22/2024 8:17 AM [facility] eGFR 48(L) >59 11/22/2024 8:17 AM [facility] Comment:CKD-EPI (2020) in mL /min/1.73 sq meters. Sodium 137 136 - 145 mmol/L 11/22/2024 8:17 AM [facility] Potassium 4.2 3.4 - 5.3 mmol/L 11/22/2024 8:17 AM [facility] Chloride 101 98 - 107 mmol/L 11/22/2024 8:17 AM [facility] CO2 27 22 - 33 mmol/L 11/22/2024 8:17 AM [facility] Anion Gap 9 7 - 17 11/22/2024 8:17 AM [facility] Calcium 8.8 8.7 - 10.5 mg/dL 11/22/2024 8:17 AM [facility] BUN/Creatinine Ratio 23 10.0 - 25.0 Ratio 11/22/2024 8:17 AM EST [facility] Blood (Plasma/Serum) 11/22/2024 7:31 AM EST 11/22/2024 7:54 AM EST Gianluca Calles MD LAB BLOOD ORDERABLES Performing Organization Address [facility]/ZIP Co de Phone Number [address] [address], [address] [address] * (ABNORMAL) POCT Glucose, Fingerstick (11/21/2024 9:28 [...] POCT Glucose, Fingerstick (11/21/2024 11:56 AM EST) POC Glucose 246(H) 65 - 99 mg/dL 11/21/2024 12:03 PM EST Blood specimen / Unknown 11/21/2024 11:56 AM EST 11/21/2024 12:03 PM EST Dallas Camejo MD POINT OF CARE TEST O RDERABLES HOSPITAL LAB See Below * (ABNORMAL) POCT Glucose, Fingerstick (11/21/2024 7:45 AM EST) [facility] POC Glucose 175(H) 65 - 99 mg/dL 11/21/2024 7:54 AM EST Blood specimen / Unknown 11/21/2024 7:45 AM EST 11/21/2024 7:54 AM EST Dallas Camejo MD POINT OF CARE TEST O RDERABLES Performing Organization Address City/[facility]/ZIP Co de Phone Number [facility] See Below * Magnesium (AM) (11/21/2024 6:58 AM EST) [facility] Magnesium 2.1 1.6 - 2.7 mg/dL 11/21/2024 8:14 AM EST [facility] Blood (Plasma/Serum) 11/21/2024 6:58 AM EST 11/21/2024 7:36 AM EST Gianluca Calles MD LAB BLOOD ORDERABLES Performing Organization Address [facility] [place] [address], [place] [address] * (ABNORMAL) Complete Blood Count WITHOUT Differential - in AM (11/21/2024 6:58 AM EST) [facility] White Blood Cell Count 14.0(H) 4.0 - 11.0 Thou/uL 11/21/2024 7:55 AM [facility] Platelet Count 329 150 - 450 Thou/uL 11/21/2024 7:55 AM [facility] Hemoglobin 8.2(L) 13.0 - 17.7 g/dL 11/21/2024 7:55 AM [facility] Hematocrit 26.7(L) 39.0 - 54.0 % 11/21/2024 7:55 AM [facility] Red Blood Cell Count 2.95(L) 4.50 - 6.20 Mil/uL 11/21/2024 7:55 AM [facility] MCV 91 80 - 100 fL 11/21/2024 7:55 AM [facility] MCH 27.8 27.0 - 31.0 pg 11/21/2024 7:55 AM [facility] MCHC 30.7 30.0 - 36.0 g/dL 11/21/2024 7:55 AM [facility] RDW 17.8(H) 11.5 - 14.5 % 11/21/2024 7:55 AM [facility] MPV 10.4 7.5 - 12.5 fL 11/21/2024 7:55 AM [facility] Blood Blood specimen / Unknown 11/21/2024 6:58 AM EST 11/21/2024 7:36 AM EST Gianluca Calles MD LAB BLOOD ORDERABLES Performing Organization Address City/State/[facility] [place] [address], [address] [address] * (ABNORMAL) Basic Metabolic Panel (AM) (11/21/2024 6:58 AM EST) Glucose 153(H) 65 - 99 mg/dL 11/21/2024 8:14 AM [facility] Comment:Fasting: <100 mg/dL, Non-Fasting: <200 mg/dL (ADA 2005) Blood Urea Nitrogen (BUN) 38(H) 8 - 21 mg/dL 11/21/2024 8:14 AM [facility] Creatinine 1.8(H) 0.5 - 1.3 mg/dL 11/21/2024 8:14 AM [facility] eGFR 42(L) >59 11/21/2024 8:14 AM [facility] Comment:CKD-EPI (2020) in mL /min/1.73 sq meters. Sodium 136 136 - 145 mmol/L 11/21/2024 8:14 AM [facility] Potassium 3.7 3.4 - 5.3 mmol/L 11/21/2024 8:14 AM [facility] Chloride 99 98 - 107 mmol/L 11/21/2024 8:14 AM [facility] CO2 27 22 - 33 mmol/L 11/21/2024 8:14 AM [facility] Anion Gap 10 7 - 17 11/21/2024 8:14 AM [facility] Calcium 8.8 8.7 - 10.5 mg/dL 11/21/2024 8:14 AM [facility] BUN/Creatinine Ratio 21 10.0 - 25.0 Ratio 11/21/2024 8:14 AM [facility] Blood (Plasma/Serum) 11/21/2024 6:58 AM EST 11/21/2024 7:36 AM EST Gianluca Calles MD [place] [address], [place] [address] * (ABNORMAL) POCT Glucose, Fingerstick (11/20/2024 8:16 [...] CARE TEST O RDGHANSHYAM Performing Organization Address City/[facility]/ZIP Co de Phone Number [facility] See Below * (ABNORMAL) POCT Glucose, Fingerstick (11/20/2024 7:58 AM EST) Pathologist [facility] POC Glucose 166(H) 65 - 99 mg/dL 11/20/2024 8:02 AM EST Blood specimen / Unknown 11/20/2024 7:58 AM EST 11/20/2024 8:02 AM EST Dallas Camejo MD POINT OF CARE TEST O JOSEPH Performing Organization Address City/[facility] Co de Phone Number [facility] See Below * Magnesium (AM) (11/20/2024 6:59 AM EST) Pathologist [facility] Magnesium 2.2 1.6 - 2.7 mg/dL 11/20/2024 8:04 AM EST [facility] Blood (Plasma/Serum) 11/20/2024 6:59 AM EST 11/20/2024 7:31 AM EST Gianluca Calles MD LAB BLOOD ORDERABLES Performing Organization Address [facility] Co de Phone Number [address] [address], [address] [address] * (ABNORMAL) Complete Blood Count WITHOUT Differential - in AM (11/20/2024 6:59 AM EST) [facility] White Blood Cell Count 11.9(H) 4.0 - 11.0 Thou/uL 11/20/2024 7:45 AM EST [facility] Platelet Count 339 150 - 450 Thou/uL 11/20/2024 7:45 AM [facility] Hemoglobin 8.3(L) 13.0 - 17.7 g/dL 11/20/2024 7:45 AM [facility] Hematocrit 27.2(L) 39.0 - 54.0 % 11/20/2024 7:45 AM [facility] Red Blood Cell Count 3.01(L) 4.50 - 6.20 Mil/uL 11/20/2024 7:45 AM [facility] MCV 90 80 - 100 fL 11/20/2024 7:45 AM [facility] MCH 27.6 27.0 - 31.0 pg 11/20/2024 7:45 AM [facility] MCHC 30.5 30.0 - 36.0 g/dL 11/20/2024 7:45 AM [facility] RDW 17.5(H) 11.5 - 14.5 % 11/20/2024 7:45 AM [facility] MPV 10.7 7.5 - 12.5 fL 11/20/2024 7:45 AM [facility] Blood Blood specimen / Unknown 11/20/2024 6:59 AM EST 11/20/2024 7:31 AM EST Gianluca Calles MD LAB BLOOD ORDERABLES Performing Organization Address City/State/[facility] [place] [address], [place] [address] * (ABNORMAL) Basic Metabolic Panel (AM) (11/20/2024 6:59 AM EST) Glucose 155(H) 65 - 99 mg/dL 11/20/2024 8:04 AM [facility] Comment:Fasting: <100 mg/dL, Non-Fasting: <200 mg/dL (ADA 2005) Blood Urea Nitrogen (BUN) 47(H) 8 - 21 mg/dL 11/20/2024 8:04 AM [facility] Creatinine 1.9(H) 0.5 - 1.3 mg/dL 11/20/2024 8:04 AM [facility] eGFR 39(L) >59 11/20/2024 8:04 AM [facility] Comment:CKD-EPI (2020) in mL /min/1.73 sq meters. Sodium 137 136 - 145 mmol/L 11/20/2024 8:04 AM [facility] Potassium 3.8 3.4 - 5.3 mmol/L 11/20/2024 8:04 AM [facility] Chloride 98 98 - 107 mmol/L 11/20/2024 8:04 AM [facility] CO2 30 22 - 33 mmol/L 11/20/2024 8:04 AM [facility] Anion Gap 9 7 - 17 11/20/2024 8:04 AM [facility] Calcium 9.0 8.7 - 10.5 mg/dL 11/20/2024 8:04 AM [facility] BUN/Creatinine Ratio 25 10.0 - 25.0 Ratio 11/20/2024 8:04 AM [facility] Blood (Plasma/Serum) 11/20/2024 6:59 AM EST 11/20/2024 7:31 AM EST Gianluca Calles MD LAB BLOOD ORDERABLES Performing Organization Address City/[facility]/[place] [address], [place] [address] * (ABNORMAL) POCT Glucose, Fingerstick (11/19/2024 4:13 PM EST) POC Glucose 274(H) 65 - 99 mg/dL 11/19/2024 4:14 PM EST Blood specimen / Unknown 11/19/2024 4:13 PM EST 11/19/2024 4:14 PM EST Dallas Camejo MD POINT OF CARE TEST O RDERABLES HOSPITAL LAB See Below * (ABNORMAL) Urinalysis with Reflex to Microscopic (11/19/2024 4:00 PM EST) Color Yellow 11/19/2024 4:30 PM [facility] Clarity Clear 11/19/2024 4:30 PM [facility] Specific [place] 1.008 1.003 - 1.030 11/19/2024 4:30 PM [facility] pH 6.0 5.0 - 8.0 11/19/2024 4:30 PM [facility] Leukocyte Esterase Large(A) Negative 11/19/2024 4:30 PM [facility] Nitrite Negative Negative 11/19/2024 4:30 PM [facility] Protein Negative Negative 11/19/2024 4:30 PM [facility] Glucose 0 0 - 99 mg/dL 11/19/2024 4:30 PM [facility] Ketones Negative Negative 11/19/2024 4:30 PM [facility] Blood Negative Negative 11/19/2024 4:30 PM [facility] Bilirubin Negative Negative 11/19/2024 4:30 PM [facility] WBC >25(H) 0 - 4 per hpf 11/19/2024 4:30 PM [facility] RBC 2 0 - 4 per hpf 11/19/2024 4:30 PM [facility] X-Specimen 16 Voided urine specimen / Unknown 11/19/2024 4:00 PM EST 11/19/2024 4:18 PM EST Anmol Reynoso MD [place] [address], [place] [address] * OSMOLALITY, URINE (11/19/2024 4:00 PM EST) Osmolality, Urine 201 50 - 1,200 mOsm/Kg 11/19/2024 6:20 PM [facility] Urine Urine specimen / Unknown 11/19/2024 4:00 PM EST 11/19/2024 4:19 PM EST Anmol Reynoso MD URINE ORDERABLES Performing Organization Address City/[facility]/[place] [address], [address] [address] * Urea Nitrogen, Urine, Random (11/19/2024 4:00 PM EST) Urea Nitrogen, Random Urine 273 mg/dL 11/19/2024 5:43 PM EST [facility] Comment:Reference range not established for random specimen. Urine Urine specimen / Unknown 11/19/2024 4:00 PM EST 11/19/2024 4:19 PM EST Anmol Reynoso MD URINE ORDERABLES [address] [address], [address] [address] * SODIUM, URINE, RANDOM (11/19/2024 4:00 PM EST) Sodium, Urine Random 21 mmol/L 11/19/2024 5:43 PM EST [facility] Comment:Reference range not established for random specimen. Urine Urine specimen / Unknown 11/19/2024 4:00 PM EST 11/19/2024 4:19 PM EST Anmol Reynoso MD URINE ORDERABLES Performing Organization Address City/[facility]/ZIP Co de Phone Number [address] [address], [address] [address] * CREATININE, URINE, RANDOM (11/19/2024 4:00 PM EST) Creatinine, Urine, Random 31 mg/dL 11/19/2024 5:43 PM EST [facility] Comment:Reference range not established for random specimen. Urine Urine specimen / Unknown 11/19/2024 4:00 PM EST 11/19/2024 4:19 PM EST Anmol Reynoso MD URINE ORDERABLES Performing Organization Address City/[facility]/ZIP Co de Phone Number [address] [address], [address] [address] * Chloride, Urine, Random (11/19/2024 4:00 PM EST) Chloride, Urine, Random 23 mmol/L 11/19/2024 5:43 PM EST [facility] Comment:Reference range not established for random specimen. Urine Urine specimen / Unknown 11/19/2024 4:00 PM EST 11/19/2024 4:19 PM EST Anmol Reynoso MD URINE ORDERABLES [address] [address], [address] [address] * CVC INSERT (TUNNEL) W/O PORT GREATER [...] table. A preprocedure time-out was performed per [facility] protocol. The right neck and chest was [...] access, a 26 cm long dual lumen 5-Fijian cuffed tunneled catheter was placed under fluoroscopic [...] table. A preprocedure time-out was performed per [facility], [facility] protocol. The right neck and chest was [...] access, a 26 cm long dual lumen 5-Fijian cuffed tunneled catheter was placed under fluoroscopic [...] for use immediately. Alyssia PATTON CV ENDOVASCULAR ORDMicky BUCK * (ABNORMAL) POCT Glucose, Fingerstick (11/19/2024 11:39 AM EST) POC Glucose 205(H) 65 - 99 mg/dL 11/19/2024 11:40 AM EST Blood specimen / Unknown 11/19/2024 11:39 AM EST 11/19/2024 11:40 AM EST Dallas Camejo MD POINT OF CARE TEST O RDERABLES Performing Organization Address [facility] Co dc Phone Number [facility] See Below * (ABNORMAL) POCT Glucose, Fingerstick (11/19/2024 8:06 AM EST) POC Glucose 190(H) 65 - 99 mg/dL 11/19/2024 8:08 AM EST Blood specimen / Unknown 11/19/2024 8:06 AM EST 11/19/2024 8:08 AM EST Dallas Camejo MD POINT OF CARE TEST O RDERALUCILLE Performing Organization Address [facility] Co dc Phone Number [facility] See Below * (ABNORMAL) Complete Blood Count WITHOUT Differential - Daily x2 (11/19/2024 7:54 AM EST) Pathologist [facility] White Blood Cell Count 10.1 4.0 - 11.0 Thou/uL 11/19/2024 8:48 AM EST [facility] Platelet Count 354 150 - 450 Thou/uL 11/19/2024 8:48 AM [facility] Hemoglobin 8.2(L) 13.0 - 17.7 g/dL 11/19/2024 8:48 AM [facility] Hematocrit 26.6(L) 39.0 - 54.0 % 11/19/2024 8:48 AM [facility] Red Blood Cell Count 2.99(L) 4.50 - 6.20 Mil/uL 11/19/2024 8:48 AM [facility] MCV 89 80 - 100 fL 11/19/2024 8:48 AM [facility] MCH 27.4 27.0 - 31.0 pg 11/19/2024 8:48 AM [facility] MCHC 30.8 30.0 - 36.0 g/dL 11/19/2024 8:48 AM [facility] RDW 17.2(H) 11.5 - 14.5 % 11/19/2024 8:48 AM [facility] MPV 10.8 7.5 - 12.5 fL 11/19/2024 8:48 AM [facility] Blood Blood specimen / Unknown 11/19/2024 7:54 AM EST 11/19/2024 8:33 AM EST Corbin Lamb APRN LAB BLOOD ORDERABL ES Performing Organization Address City/[facility]/[place]IP [place] [address], [place] [address] * Magnesium (Daily x 2 days) (11/19/2024 7:54 AM EST) Magnesium 2.1 1.6 - 2.7 mg/dL 11/19/2024 9:00 AM [facility] Blood (Plasma/Serum) 11/19/2024 7:54 AM EST 11/19/2024 8:33 AM EST Corbin Lamb APRN [place] [address], [place] [address] * (ABNORMAL) Basic Metabolic Panel (Daily x 2 days) (11/19/2024 7:54 AM EST) Glucose 169(H) 65 - 99 mg/dL 11/19/2024 9:00 AM [facility] Comment:Fasting: <100 mg/dL, Non-Fasting: <200 mg/dL (ADA 2005) Blood Urea Nitrogen (BUN) 43(H) 8 - 21 mg/dL 11/19/2024 9:00 AM [facility] Creatinine 1.8(H) 0.5 - 1.3 mg/dL 11/19/2024 9:00 AM [facility] eGFR 42(L) >59 11/19/2024 9:00 AM [facility] Comment:CKD-EPI (2020) in mL /min/1.73 sq meters. Sodium 132(L) 136 - 145 mmol/L 11/19/2024 9:00 AM [facility] Potassium 3.7 3.4 - 5.3 mmol/L 11/19/2024 9:00 AM [facility] [facility] Chloride 92(L) 98 - 107 mmol/L 11/19/2024 9:00 AM [facility] CO2 30 22 - 33 mmol/L 11/19/2024 9:00 AM [facility] Anion Gap 10 7 - 17 11/19/2024 9:00 AM [facility] Calcium 9.1 8.7 - 10.5 mg/dL 11/19/2024 9:00 AM [facility] BUN/Creatinine Ratio 24 10.0 - 25.0 Ratio 11/19/2024 9:00 AM [facility] Blood (Plasma/Serum) 11/19/2024 7:54 AM EST 11/19/2024 8:33 AM EST Corbin Lamb BILL ADJUSTER [place] [address], [place] [address] * (ABNORMAL) POCT Glucose, Fingerstick (11/18/2024 9:04 PM EST) POC Glucose 253(H) 65 - 99 mg/dL 11/18/2024 9:11 PM EST Blood specimen / Unknown 11/18/2024 9:04 PM EST 11/18/2024 9:11 PM EST Dallas Camejo MD POINT OF CARE TEST O [place]RIST[place]UC[place] Performing Organization Address [facility] Phone Number [facility] See Below * (ABNORMAL) POCT Glucose, Fingerstick (11/18/2024 4:56 PM EST) POC Glucose 305(H) 65 - 99 mg/dL 11/18/2024 4:58 PM EST Blood specimen / Unknown 11/18/2024 4:56 PM EST 11/18/2024 4:57 PM EST Dallas Camejo MD POINT OF CARE TEST O RDERALUCILLE Performing Organization Address [facility] Phone Number [facility] See Below * (ABNORMAL) POCT Glucose, Fingerstick (11/18/2024 12:00 PM EST) POC Glucose 253(H) 65 - 99 mg/dL 11/18/2024 12:01 PM EST Blood specimen / Unknown 11/18/2024 12:00 PM EST 11/18/2024 12:01 PM EST Dallas Camejo MD POINT OF CARE TEST O JOSEPH Performing Organization Address [facility] Number [facility] See Below * (ABNORMAL) POCT Glucose, Fingerstick (11/18/2024 7:53 AM EST) POC Glucose 129(H) 65 - 99 mg/dL 11/18/2024 7:58 AM EST Blood specimen / Unknown 11/18/2024 7:53 AM EST 11/18/2024 7:58 AM EST Dallas Camejo MD POINT OF CARE TEST O JOSEPH Performing Organization Address [facility] Phone Number [facility] See Below * PM SINGLE LEAD EVAL WITH PROGRAM,[id number] (11/18/2024 7:45 AM EST) Date Time Interrogation Session [id number],07 3,509 PACEART Implantable Pulse Generator Rf Test Technician [employer] PACEART Implantable Pulse Generator Model [id number] Micra AV2 PACEART Implantable Pulse Generator Serial Number [id number] PACEART Implantable Pulse Generator Type Pacemaker PACEART [...] last reset 92.76 % PACEART Otf Statistic DIRECTOR PUBLIC POLICY Percent 99.88 % PACEART Otf Statistic VS Percent 0.12 % PACEART Anatomical Region Laterality Modality Other 11/18/2024 7:35 AM EST Narrative 11/19/2024 12:19 PM EST Pacemaker evaluation completed on B10E, device interrogation ordered for post-OP. Presenting rhythm: AM-DIRECTOR PUBLIC POLICY @ 69 bpm. Underlying rhythm: No ventricular response greater than 40 bpm. AM-DIRECTOR PUBLIC POLICY @ 84.8%. Battery and device parameters evaluated and within normal limits. Normal pacemaker function. Micra pacemakers do not record events. Sri Pena RN Corbin Lamb APRN CV CARDIAC SERVICE S ORDERABLES * Creatine Kinase (CK) (11/18/2024 7:15 AM EST) Creatine Kinase (CK) 49 24 - 204 U/L 11/18/2024 8:22 AM EST [facility] Blood (Plasma/Serum) 11/18/2024 7:15 AM EST 11/18/2024 7:47 AM EST Corbin Lamb APRN LAB BLOOD ORDERABL ES [address] [address], [address] [address] * (ABNORMAL) Complete Blood Count WITHOUT Differential - Daily x2 (11/18/2024 7:15 AM EST) White Blood Cell Count 12.3(H) 4.0 - 11.0 Thou/uL 11/18/2024 8:00 AM [facility] Platelet Count 349 150 - 450 Thou/uL 11/18/2024 8:00 AM [facility] Hemoglobin 8.1(L) 13.0 - 17.7 g/dL 11/18/2024 8:00 AM [facility] Hematocrit 25.5(L) 39.0 - 54.0 % 11/18/2024 8:00 AM [facility] Red Blood Cell Count 2.90(L) 4.50 - 6.20 Mil/uL 11/18/2024 8:00 AM [facility] MCV 88 80 - 100 fL 11/18/2024 8:00 AM [facility] MCH 27.9 27.0 - 31.0 pg 11/18/2024 8:00 AM [facility] MCHC 31.8 30.0 - 36.0 g/dL 11/18/2024 8:00 AM [facility] RDW 17.1(H) 11.5 - 14.5 % 11/18/2024 8:00 AM [facility] MPV 10.6 7.5 - 12.5 fL 11/18/2024 8:00 AM [facility] Blood Blood specimen / Unknown 11/18/2024 7:15 AM EST 11/18/2024 7:47 AM EST Corbin Lamb APRN LAB BLOOD ORDERABL ES [address] [address], [address] [address] * Magnesium (Daily x 2 days) (11/18/2024 7:15 AM EST) Pathologist [facility] Magnesium 2.0 1.6 - 2.7 mg/dL 11/18/2024 8:22 AM [facility] Blood (Plasma/Serum) 11/18/2024 7:15 AM EST 11/18/2024 7:47 AM EST Corbin Lamb BILL ADJUSTER LAB BLOOD ORDERABL ES [address] [address], [address] [address] * (ABNORMAL) Basic Metabolic Panel (Daily x 2 days) (11/18/2024 7:15 AM EST) Glucose 114(H) 65 - 99 mg/dL 11/18/2024 8:22 AM [facility] Comment:Fasting: <100 mg/dL, Non-Fasting: <200 mg/dL (ADA 2004) Blood Urea Nitrogen (BUN) 45(H) 8 - 21 mg/dL 11/18/2024 8:22 AM [facility] Creatinine 1.8(H) 0.5 - 1.3 mg/dL 11/18/2024 8:22 AM [facility] eGFR 42(L) >59 11/18/2024 8:22 AM [facility] Comment:CKD-EPI (2020) in mL /min/1.73 sq meters. Sodium 129(L) 136 - 145 mmol/L 11/18/2024 8:22 AM [facility] Potassium 3.6 3.4 - 5.3 mmol/L 11/18/2024 8:22 AM [facility] Chloride 89(L) 98 - 107 mmol/L 11/18/2024 8:22 AM [facility] CO2 29 22 - 33 mmol/L 11/18/2024 8:22 AM [facility] Anion Gap 11 7 - 17 11/18/2024 8:22 AM [facility] Calcium 8.9 8.7 - 10.5 mg/dL 11/18/2024 8:22 AM [facility] BUN/Creatinine Ratio 25 10.0 - 25.0 Ratio 11/18/2024 8:22 AM [facility] Blood (Plasma/Serum) 11/18/2024 7:15 AM EST 11/18/2024 7:47 AM EST Corbin Lamb APRN LAB BLOOD ORDERABL ES Performing Organization Address City/[facility]/ZIP Co de Phone Number [address] [address], [address] [address] * XR Chest 1 view (11/17/2024 5:48 [...] MD POINT OF CARE TEST O RDERABLES [facility] See Below * (ABNORMAL) POCT Glucose, Fingerstick (11/17/2024 11:18 AM EST) POC Glucose 153(H) 65 - 99 mg/dL 11/17/2024 11:22 AM EST Blood specimen / Unknown 11/17/2024 11:18 AM EST 11/17/2024 11:22 AM EST Dallas Camejo MD POINT OF CARE TEST O RDERABLES [facility] See Below * Phosphorus (AM) (11/17/2024 8:16 AM EST) Phosphorus 3.5 2.7 - 4.5 mg/dL 11/17/2024 9:01 AM EST [facility] Blood (Plasma/Serum) 11/17/2024 8:16 AM EST 11/17/2024 8:30 AM EST Maddison Villalpando MD LAB BLOOD ORDERABLES Performing Organization Address City/[facility] Co de Phone Number [address] [address], [address] [address] * Magnesium (AM) (11/17/2024 8:16 AM EST) Magnesium 2.0 1.6 - 2.7 mg/dL 11/17/2024 9:01 AM EST [facility] Blood (Plasma/Serum) 11/17/2024 8:16 AM EST 11/17/2024 8:30 AM EST Maddison Villalpando MD LAB BLOOD ORDERABLES [address] [address], [address] [address] * (ABNORMAL) POCT Glucose, Fingerstick (11/17/2024 7:20 AM EST) POC Glucose 206(H) 65 - 99 mg/dL 11/17/2024 7:31 AM EST Blood specimen / Unknown 11/17/2024 7:20 AM EST 11/17/2024 7:30 AM EST Dallas Camejo MD POINT OF CARE TEST O RDERABLES Performing Organization Address City/[facility]/ZIP Co de Phone Number [facility] See Below * (ABNORMAL) Complete Blood Count WITHOUT Differential - STAT (11/17/2024 5:00 AM EST) White Blood Cell Count 11.2(H) 4.0 - 11.0 Thou/uL 11/17/2024 5:26 AM [facility] Platelet Count 373 150 - 450 Thou/uL 11/17/2024 5:26 AM [facility] Hemoglobin 8.2(L) 13.0 - 17.7 g/dL 11/17/2024 5:26 AM [facility] Hematocrit 25.0(L) 39.0 - 54.0 % 11/17/2024 5:26 AM [facility] Red Blood Cell Count 2.94(L) 4.50 - 6.20 Mil/uL 11/17/2024 5:26 AM [facility] MCV 85 80 - 100 fL 11/17/2024 5:26 AM [facility] MCH 27.9 27.0 - 31.0 pg 11/17/2024 5:26 AM [facility] MCHC 32.8 30.0 - 36.0 g/dL 11/17/2024 5:26 AM [facility] RDW 16.5(H) 11.5 - 14.5 % 11/17/2024 5:26 AM [facility] MPV 10.4 7.5 - 12.5 fL 11/17/2024 5:26 AM [facility] Blood Blood specimen / Unknown 11/17/2024 5:00 AM EST 11/17/2024 5:09 AM EST Adithya Sheriff PA-C LAB BLOOD ORDERAB LES [address] [address], [address] [address] * (ABNORMAL) Comprehensive Metabolic Panel (AM) (11/17/2024 5:00 AM EST) Glucose 171(H) 65 - 99 mg/dL 11/17/2024 6:55 AM [facility] Comment:Fasting: <100 mg/dL, Non-Fasting: <200 mg/dL (ADA 2005) Blood Urea Nitrogen (BUN) 54(H) 8 - 21 mg/dL 11/17/2024 6:55 AM [facility] Creatinine 1.8(H) 0.5 - 1.3 mg/dL 11/17/2024 6:55 AM [facility] eGFR 42(L) >59 11/17/2024 6:55 AM [facility] Comment:CKD-EPI (2020) in mL /min/1.73 sq meters. Sodium 128(L) 136 - 145 mmol/L 11/17/2024 6:55 AM [facility] Potassium 3.7 3.4 - 5.3 mmol/L 11/17/2024 6:55 AM [facility] Chloride 87(L) 98 - 107 mmol/L 11/17/2024 6:55 AM [facility] CO2 30 22 - 33 mmol/L 11/17/2024 6:55 AM [facility] Calcium 9.4 8.7 - 10.5 mg/dL 11/17/2024 6:55 AM [facility] Alkaline Phosphatase 117 45 - 128 U/L 11/17/2024 6:55 AM [facility] Aspartate Aminotrans (AST) 24 10 - 55 U/L 11/17/2024 6:55 AM [facility] Alanine Aminotrans (ALT) 19 10 - 55 U/L 11/17/2024 6:55 AM [facility] Bilirubin, Total 0.2 0.2 - 1.0 mg/dL 11/17/2024 6:55 AM [facility] Protein, Total 6.6 6.3 - 8.3 g/dL 11/17/2024 6:55 AM [facility] Albumin 2.9(L) 3.4 - 4.8 g/dL 11/17/2024 6:55 AM [facility] BUN/Creatinine Ratio 30(H) 10.0 - 25.0 Ratio 11/17/2024 6:55 AM [facility] Globulin 3.7 1.5 - 3.9 g/dL 11/17/2024 6:55 AM [facility] Albumin/Globulin Ratio 0.8(L) 1.0 - 3.0 Ratio 11/17/2024 6:55 AM [facility] Anion Gap 11 7 - 17 11/17/2024 6:55 AM [facility] Blood (Plasma/Serum) 11/17/2024 5:00 AM EST 11/17/2024 5:09 AM EST Adithya Sheriff PA-C [place] [address], [place] [address] * (ABNORMAL) POCT Glucose, Fingerstick (11/16/2024 8:09 [...] TEST O JOSEPH Performing Organization Address [facility] Phone Number [facility] See Below * (ABNORMAL) POCT Glucose, Fingerstick (11/16/2024 12:04 PM EST) POC Glucose 246(H) 65 - 99 mg/dL 11/16/2024 12:16 PM EST Blood specimen / Unknown 11/16/2024 12:04 PM EST 11/16/2024 12:16 PM EST Dallas Camejo MD POINT OF CARE TEST O JOSEPH Performing Organization Address [facility] Phone Number [facility] See Below * (ABNORMAL) POCT Glucose, Fingerstick (11/16/2024 7:37 AM EST) POC Glucose 211(H) 65 - 99 mg/dL 11/16/2024 7:52 AM EST Blood specimen / Unknown 11/16/2024 7:37 AM EST 11/16/2024 7:52 AM EST Dallas Camejo MD POINT OF CARE TEST O JOSEPH Performing Organization Address [facility] Co dc Phone Number [facility] See Below * Phosphorus (AM) (11/16/2024 7:23 AM EST) Phosphorus 3.8 2.7 - 4.5 mg/dL 11/16/2024 8:34 AM EST [facility] Blood (Plasma/Serum) 11/16/2024 7:23 AM EST 11/16/2024 7:51 AM EST Maddison Villalpando MD [place] [address], [place] [address] * Magnesium (AM) (11/16/2024 7:23 AM EST) Magnesium 2.1 1.6 - 2.7 mg/dL 11/16/2024 8:34 AM [facility] Blood (Plasma/Serum) 11/16/2024 7:23 AM EST 11/16/2024 7:51 AM EST Maddison Villalpando MD LAB BLOOD ORDERABLES Performing Organization Address [facility]/[place] [address], [place] [address] * (ABNORMAL) Basic Metabolic Panel (AM) (11/16/2024 7:23 AM EST) Glucose 190(H) 65 - 99 mg/dL 11/16/2024 8:34 AM [facility] Comment:Fasting: <100 mg/dL, Non-Fasting: <200 mg/dL (ADA 2005) Blood Urea Nitrogen (BUN) 55(H) 8 - 21 mg/dL 11/16/2024 8:34 AM [facility] Creatinine 1.9(H) 0.5 - 1.3 mg/dL 11/16/2024 8:34 AM [facility] eGFR 39(L) >59 11/16/2024 8:34 AM [facility] Comment:CKD-EPI (2020) in mL /min/1.73 sq meters. Sodium 130(L) 136 - 145 mmol/L 11/16/2024 8:34 AM [facility] Potassium 3.6 3.4 - 5.3 mmol/L 11/16/2024 8:34 AM [facility] Chloride 87(L) 98 - 107 mmol/L 11/16/2024 8:34 AM [facility] CO2 32 22 - 33 mmol/L 11/16/2024 8:34 AM [facility] Anion Gap 11 7 - 17 11/16/2024 8:34 AM [facility] Calcium 9.1 8.7 - 10.5 mg/dL 11/16/2024 8:34 AM [facility] BUN/Creatinine Ratio 29(H) 10.0 - 25.0 Ratio 11/16/2024 8:34 AM [facility] Blood (Plasma/Serum) 11/16/2024 7:23 AM EST 11/16/2024 7:51 AM EST Maddison Villalpando MD LAB BLOOD ORDERABLES [address] [address], [address] [address] * (ABNORMAL) Complete Blood Count WITHOUT Differential - in AM (11/16/2024 7:23 AM EST) White Blood Cell Count 10.7 4.0 - 11.0 Thou/uL 11/16/2024 8:10 AM [facility] Platelet Count 408 150 - 450 Thou/uL 11/16/2024 8:10 AM [facility] Hemoglobin 8.1(L) 13.0 - 17.7 g/dL 11/16/2024 8:10 AM [facility] Hematocrit 25.6(L) 39.0 - 54.0 % 11/16/2024 8:10 AM [facility] Red Blood Cell Count 2.97(L) 4.50 - 6.20 Mil/uL 11/16/2024 8:10 AM [facility] MCV 86 80 - 100 fL 11/16/2024 8:10 AM [facility] MCH 27.3 27.0 - 31.0 pg 11/16/2024 8:10 AM [facility] MCHC 31.6 30.0 - 36.0 g/dL 11/16/2024 8:10 AM [facility] RDW 16.8(H) 11.5 - 14.5 % 11/16/2024 8:10 AM [facility] MPV 10.4 7.5 - 12.5 fL 11/16/2024 8:10 AM [facility] Blood Blood specimen / Unknown 11/16/2024 7:23 AM EST 11/16/2024 7:51 AM EST Maddison Villalpando MD LAB BLOOD ORDERABLES [address] [address], [address] [address] * Type and Screen (11/16/2024 7:23 AM EST) ABO/Rh A POSITIVE 11/16/2024 8:39 AM [facility] Antibody Screen NEGATIVE 11/16/2024 8:53 AM [facility] Specimen Expiration 11/19/2024 11/16/2024 8:39 AM [facility] Unit Number [id number] 11/16/2024 9:12 AM [facility] Blood Component Type LEUKOREDUCED RED CELLS 11/16/2024 9:12 AM [facility] Unit Division 00 11/16/2024 9:12 AM [facility] Unit Status REL FROM ALLOC 2:05 AM [facility] Transfusion Status OK TO TRANSFUSE 11/16/2024 9:12 AM [facility] Crossmatch Result Electronically Compatible 11/16/2024 9:12 AM [facility] Unit Number [id number] 11/16/2024 9:12 AM [facility] Blood Component Type LEUKOREDUCED RED CELLS 11/16/2024 9:12 AM [facility] Unit Division 00 11/16/2024 9:12 AM [facility] Unit Status REL FROM ALLOC 2:05 AM [facility] Transfusion Status OK TO TRANSFUSE 11/16/2024 9:12 AM [facility] Crossmatch Result Electronically Compatible 11/16/2024 9:12 AM [facility] Unit Number [id number] 11/16/2024 9:12 AM [facility] Blood Component Type LEUKOREDUCED RED CELLS 11/16/2024 9:12 AM [facility] Unit Division 00 11/16/2024 9:12 AM [facility] Unit Status REL FROM ALLOC 2:05 AM [facility] Transfusion Status OK TO TRANSFUSE 11/16/2024 9:12 AM [facility] Crossmatch Result Electronically Compatible 11/16/2024 9:12 AM [facility] Unit Number [id number] 11/16/2024 9:12 AM [facility] Blood Component Type LEUKOREDUCED RED CELLS 11/16/2024 9:12 AM [facility] Unit Division 00 11/16/2024 9:12 AM [facility] Unit Status REL FROM ALLOC 2:05 AM [facility] Transfusion Status OK TO TRANSFUSE 11/16/2024 9:12 AM [facility] Crossmatch Result Electronically Compatible 11/16/2024 9:12 AM [facility] Blood Blood specimen / Unknown 11/16/2024 7:23 AM EST 11/16/2024 7:57 AM EST Comment:Blood Cristina Rodriguez APRN BLOOD BANK TEST OR DERABLES [facility] See Below [address] [address] * (ABNORMAL) POCT Glucose, Fingerstick (11/15/2024 8:14 PM EST) Pathologist [facility] POC Glucose 330(H) 65 - 99 mg/dL 11/15/2024 8:15 PM EST Blood specimen / Unknown 11/15/2024 8:14 PM EST 11/15/2024 8:15 PM EST Dallas Camejo MD POINT OF CARE TEST O RDERABLES [facility] See Below * (ABNORMAL) POCT Glucose, Fingerstick (11/15/2024 4:10 PM EST) Pathologist [facility] POC Glucose 308(H) 65 - 99 mg/dL 11/15/2024 4:11 PM EST Blood specimen / Unknown 11/15/2024 4:10 PM EST 11/15/2024 4:11 PM EST Dallas Camejo MD POINT OF CARE TEST O RDERABLES Performing Organization Address City/[facility] Co de Phone Number [facility] See Below * (ABNORMAL) POCT Glucose, Fingerstick (11/15/2024 11:09 AM EST) POC Glucose 305(H) 65 - 99 mg/dL 11/15/2024 11:24 AM EST Blood specimen / Unknown 11/15/2024 11:09 AM EST 11/15/2024 11:24 AM EST Dallas Camejo MD POINT OF CARE TEST O RDERABLES Performing Organization Address [facility] Co de Phone Number [facility] See Below * Prepare RBC's:Prepare in: Units; Number of Units: 4; Transfusion Indications: Hemoglobin less than 7 gm/dl or HCT less than 21% (11/15/2024 10:54 AM EST) Units Ordered 4 11/15/2024 11:04 AM EST Serum specimen / Unknown 11/15/2024 10:54 AM EST 11/16/2024 9:11 AM EST Cristina Rodriguez APRN BLOOD BANK PRODUCT ORDERABLES Performing Organization Address [facility] Co de Phone Number [facility] See Below * Phosphorus (AM) (11/15/2024 8:08 AM EST) Phosphorus 4.3 2.7 - 4.5 mg/dL 11/15/2024 9:21 AM EST [facility] Blood (Plasma/Serum) 11/15/2024 8:08 AM EST 11/15/2024 8:57 AM EST Maddison Villalpando MD LAB BLOOD ORDERABLES Performing Organization Address [facility] Co de Phone Number [address] [address], [address] [address] * Magnesium (AM) (11/15/2024 8:08 AM EST) Magnesium 2.1 1.6 - 2.7 mg/dL 11/15/2024 9:21 AM [facility] Blood (Plasma/Serum) 11/15/2024 8:08 AM EST 11/15/2024 8:57 AM EST Maddison Villalpando MD LAB BLOOD ORDERABLES Performing Organization Address City/State/[facility] [place] [address], [place] [address] * (ABNORMAL) Basic Metabolic Panel (AM) (11/15/2024 8:08 AM EST) Glucose 218(H) 65 - 99 mg/dL 11/15/2024 9:21 AM [facility] Comment:Fasting: <100 mg/dL, Non-Fasting: <200 mg/dL (ADA 2004) Blood Urea Nitrogen (BUN) 59(H) 8 - 21 mg/dL 11/15/2024 9:21 AM [facility] Creatinine 1.8(H) 0.5 - 1.3 mg/dL 11/15/2024 9:21 AM [facility] eGFR 42(L) >59 11/15/2024 9:21 AM [facility] Comment:CKD-EPI (2020) in mL /min/1.73 sq meters. Sodium 131(L) 136 - 145 mmol/L 11/15/2024 9:21 AM [facility] Potassium 3.9 3.4 - 5.3 mmol/L 11/15/2024 9:21 AM [facility] Chloride 85(L) 98 - 107 mmol/L 11/15/2024 9:21 AM [facility] CO2 34(H) 22 - 33 mmol/L 11/15/2024 9:21 AM [facility] Anion Gap 12 7 - 17 11/15/2024 9:21 AM [facility] Calcium 9.4 8.7 - 10.5 mg/dL 11/15/2024 9:21 AM [facility] BUN/Creatinine Ratio 33(H) 10.0 - 25.0 Ratio 11/15/2024 9:21 AM [facility] Blood (Plasma/Serum) 11/15/2024 8:08 AM EST 11/15/2024 8:57 AM EST Maddison Villalpando MD LAB BLOOD ORDERABLES Performing Organization Address [facility]/ZIP Co de Phone Number [address] [address], [address] [address] * (ABNORMAL) Complete Blood Count WITHOUT Differential - in AM (11/15/2024 8:08 AM EST) White Blood Cell Count 11.8(H) 4.0 - 11.0 Thou/uL 11/15/2024 9:06 AM [facility] Platelet Count 485(H) 150 - 450 Thou/uL 11/15/2024 9:06 AM [facility] Hemoglobin 8.9(L) 13.0 - 17.7 g/dL 11/15/2024 9:06 AM [facility] Hematocrit 28.9(L) 39.0 - 54.0 % 11/15/2024 9:06 AM [facility] Red Blood Cell Count 3.27(L) 4.50 - 6.20 Mil/uL 11/15/2024 9:06 AM [facility] MCV 88 80 - 100 fL 11/15/2024 9:06 AM [facility] MCH 27.2 27.0 - 31.0 pg 11/15/2024 9:06 AM [facility] MCHC 30.8 30.0 - 36.0 g/dL 11/15/2024 9:06 AM [facility] RDW 16.8(H) 11.5 - 14.5 % 11/15/2024 9:06 AM [facility] MPV 10.4 7.5 - 12.5 fL 11/15/2024 9:06 AM [facility] Blood Blood specimen / Unknown 11/15/2024 8:08 AM EST 11/15/2024 8:57 AM EST Maddison Villalpando MD LAB BLOOD ORDERABLES [address] [address], [address] [address] * (ABNORMAL) proBNP, N-terminal (11/15/2024 8:08 AM EST) [facility] proBNP, N-terminal 429(H) <125 pg/mL 11/15/2024 9:21 AM EST [facility] Blood Plasma specimen / Unknown 11/15/2024 8:08 AM EST 11/15/2024 8:57 AM EST Valencia Lau APRN LAB BLOOD ORDERAB LES Performing Organization Address City/[facility]/[place] [address], [place] [address] * (ABNORMAL) POCT Glucose, Fingerstick (11/15/2024 7:36 AM EST) [facility] POC Glucose 230(H) 65 - 99 mg/dL 11/15/2024 7:54 AM EST Blood specimen / Unknown 11/15/2024 7:36 AM EST 11/15/2024 7:54 AM EST Dallas Camejo MD [facility] C[facility] See Below * (ABNORMAL) POCT Glucose, Fingerstick (11/14/2024 7:51 PM EST) [facility] POC Glucose 252(H) 65 - 99 mg/dL [...] TEST O JOSEPH Performing Organization Address [facility]/ZIP Co de Phone Number [facility] See Below * (ABNORMAL) POCT Glucose, Fingerstick (11/14/2024 11:33 AM EST) Pathologist [facility] POC Glucose 274(H) 65 - 99 mg/dL 11/14/2024 11:49 AM EST Blood specimen / Unknown 11/14/2024 11:33 AM EST 11/14/2024 11:49 AM EST Dallas Camejo MD POINT OF CARE TEST O JOSEPH Performing Organization Address [facility] Phone Number [facility] See Below * (ABNORMAL) Complete Blood Count WITHOUT Differential - STAT (11/14/2024 10:31 AM EST) [facility] White Blood Cell Count 10.6 4.0 - 11.0 Thou/uL 11/14/2024 11:21 AM [facility] Platelet Count 471(H) 150 - 450 Thou/uL 11/14/2024 11:21 AM [facility] Hemoglobin 8.9(L) 13.0 - 17.7 g/dL 11/14/2024 11:21 AM [facility] Hematocrit 28.9(L) 39.0 - 54.0 % 11/14/2024 11:21 AM [facility] Red Blood Cell Count 3.25(L) 4.50 - 6.20 Mil/uL 11/14/2024 11:21 AM [facility] MCV 89 80 - 100 fL 11/14/2024 11:21 AM [facility] MCH 27.4 27.0 - 31.0 pg 11/14/2024 11:21 AM [facility] MCHC 30.8 30.0 - 36.0 g/dL 11/14/2024 11:21 AM [facility] RDW 17.1(H) 11.5 - 14.5 % 11/14/2024 11:21 AM [facility] MPV 10.3 7.5 - 12.5 fL 11/14/2024 11:21 AM [facility] Blood Blood specimen / Unknown 11/14/2024 10:31 AM EST 11/14/2024 11:15 AM EST Maddison Villalpando MD LAB BLOOD ORDERABLES Performing Organization Address City/[facility]/[place] [address], [place] [address] * (ABNORMAL) Phosphorus (Routine) (11/14/2024 10:31 AM EST) Phosphorus 6.1(H) 2.7 - 4.5 mg/dL 11/14/2024 11:39 AM [facility] Blood (Plasma/Serum) 11/14/2024 10:31 AM EST 11/14/2024 11:15 AM EST Maddison Villalpando MD LAB BLOOD ORDERABLES Performing Organization Address [facility] [place] [address], [place] [address] * Magnesium (Routine) (11/14/2024 10:31 AM EST) Magnesium 2.1 1.6 - 2.7 mg/dL 11/14/2024 11:39 AM [facility] Blood (Plasma/Serum) 11/14/2024 10:31 AM EST 11/14/2024 11:15 AM EST Maddison Villalpando MD LAB BLOOD ORDERABLES Performing Organization Address [facility] [place] [address], [place] [address] * (ABNORMAL) Basic Metabolic Panel (STAT) (11/14/2024 10:31 AM EST) Glucose 319(H) 65 - 99 mg/dL 11/14/2024 11:39 AM [facility] Comment:Fasting: <100 mg/dL, Non-Fasting: <200 mg/dL (ADA 2004) Blood Urea Nitrogen (BUN) 65(H) 8 - 21 mg/dL 11/14/2024 11:39 AM [facility] Creatinine 2.1(H) 0.5 - 1.3 mg/dL 11/14/2024 11:39 AM [facility] eGFR 35(L) >59 11/14/2024 11:39 AM [facility] Comment:CKD-EPI (2020) in mL /min/1.73 sq meters. Sodium 132(L) 136 - 145 mmol/L 11/14/2024 11:39 AM [facility] Potassium 4.0 3.4 - 5.3 mmol/L 11/14/2024 11:39 AM [facility] Chloride 85(L) 98 - 107 mmol/L 11/14/2024 11:39 AM [facility] CO2 34(H) 22 - 33 mmol/L 11/14/2024 11:39 AM [facility] Anion Gap 13 7 - 17 11/14/2024 11:39 AM [facility] Calcium 9.4 8.7 - 10.5 mg/dL 11/14/2024 11:39 AM [facility] BUN/Creatinine Ratio 31(H) 10.0 - 25.0 Ratio 11/14/2024 11:39 AM [facility] Blood (Plasma/Serum) 11/14/2024 10:31 AM EST 11/14/2024 11:15 AM EST Maddison Villalpando MD [place] [address], [address] [address] * (ABNORMAL) POCT Glucose, Fingerstick (11/14/2024 7:45 AM EST) POC Glucose 224(H) 65 - 99 mg/dL 11/14/2024 7:46 AM EST Blood specimen / Unknown 11/14/2024 7:45 AM EST 11/14/2024 7:46 AM EST Dallas Camejo MD POINT OF CARE TEST O RDERALUCILLE Performing Organization Address [facility] LAB See Below * (ABNORMAL) POCT Glucose, Fingerstick (11/13/2024 11:30 PM EST) POC Glucose 268(H) 65 - 99 mg/dL 11/13/2024 11:30 PM EST Blood specimen / Unknown 11/13/2024 11:30 PM EST 11/13/2024 11:31 PM EST Dallas Camejo MD POINT OF CARE TEST O RDERALUCILLE Performing Organization Address [facility] LAB See Below * (ABNORMAL) POCT Glucose, Fingerstick (11/13/2024 9:19 PM EST) POC Glucose 366(H) 65 - 99 mg/dL 11/13/2024 9:20 PM EST Blood specimen / Unknown 11/13/2024 9:19 PM EST 11/13/2024 9:20 PM EST Dallas Camejo MD POINT OF CARE TEST O [place] Performing Organization Address [facility] Number [facility] See Below * (ABNORMAL) POCT Glucose, Fingerstick (11/13/2024 4:45 PM EST) POC Glucose 196(H) 65 - 99 mg/dL 11/13/2024 4:50 PM EST Blood specimen / Unknown 11/13/2024 4:45 PM EST 11/13/2024 4:50 PM EST Dallas Camejo MD POINT OF CARE TEST O [place] Performing Organization Address [facility] LAB See Below * (ABNORMAL) POCT Glucose, [...] CARE TEST O RDER[place]UC[place]LE Performing Organization Address City/[facility]/ZIP Co de Phone Number [facility] See Below * (ABNORMAL) proBNP, N-terminal (11/13/2024 7:30 AM EST) proBNP, N-terminal 994(H) <125 pg/mL 11/13/2024 11:05 AM EST [facility] Plasma specimen / Unknown 11/13/2024 7:30 AM EST 11/13/2024 8:09 AM EST Maddison Villalpando MD LAB BLOOD ORDERABLES Performing Organization Address City/[facility] Co de Phone Number [address] [address], [address] [address] * (ABNORMAL) Phosphorus (AM) (11/13/2024 7:30 AM EST) Phosphorus 4.9(H) 2.7 - 4.5 mg/dL 11/13/2024 8:45 AM EST [facility] Blood (Plasma/Serum) 11/13/2024 7:30 AM EST 11/13/2024 8:09 AM EST Maddison Villalpando MD LAB BLOOD ORDERABLES Performing Organization Address City/[facility]/[place] [address], [place] [address] * Magnesium (AM) (11/13/2024 7:30 AM EST) Pathologist [facility] Magnesium 1.7 1.6 - 2.7 mg/dL 11/13/2024 8:45 AM [facility] Blood (Plasma/Serum) 11/13/2024 7:30 AM EST 11/13/2024 8:09 AM EST Maddison Villalpando MD LAB BLOOD ORDERABLES Performing Organization Address [facility] [place] [address], [place] [address] * (ABNORMAL) Complete Blood Count WITHOUT Differential - in AM (11/13/2024 7:30 AM EST) Pathologist [facility] White Blood Cell Count 11.8(H) 4.0 - 11.0 Thou/uL 11/13/2024 8:28 AM [facility] Platelet Count 486(H) 150 - 450 Thou/uL 11/13/2024 8:28 AM [facility] Hemoglobin 9.2(L) 13.0 - 17.7 g/dL 11/13/2024 8:28 AM [facility] Hematocrit 29.8(L) 39.0 - 54.0 % 11/13/2024 8:28 AM [facility] Red Blood Cell Count 3.34(L) 4.50 - 6.20 Mil/uL 11/13/2024 8:28 AM [facility] MCV 89 80 - 100 fL 11/13/2024 8:28 AM [facility] MCH 27.5 27.0 - 31.0 pg 11/13/2024 8:28 AM [facility] MCHC 30.9 30.0 - 36.0 g/dL 11/13/2024 8:28 AM [facility] RDW 16.9(H) 11.5 - 14.5 % 11/13/2024 8:28 AM [facility] MPV 9.8 7.5 - 12.5 fL 11/13/2024 8:28 AM [facility] Blood Blood specimen / Unknown 11/13/2024 7:30 AM EST 11/13/2024 8:09 AM EST Maddison Villalpando MD [place] [address], [place] [address] * (ABNORMAL) Basic Metabolic Panel (AM) (11/13/2024 7:30 AM EST) Glucose 154(H) 65 - 99 mg/dL 11/13/2024 8:45 AM [facility] Comment:Fasting: <100 mg/dL, Non-Fasting: <200 mg/dL (ADA 2004) Blood Urea Nitrogen (BUN) 44(H) 8 - 21 mg/dL 11/13/2024 8:45 AM [facility] Creatinine 1.7(H) 0.5 - 1.3 mg/dL 11/13/2024 8:45 AM [facility] eGFR 45(L) >59 11/13/2024 8:45 AM [facility] Comment:CKD-EPI (2020) in mL /min/1.73 sq meters. Sodium 140 136 - 145 mmol/L 11/13/2024 8:45 AM [facility] Potassium 3.6 3.4 - 5.3 mmol/L 11/13/2024 8:45 AM [facility] Chloride 91(L) 98 - 107 mmol/L 11/13/2024 8:45 AM [facility] CO2 35(H) 22 - 33 mmol/L 11/13/2024 8:45 AM [facility] Anion Gap 14 7 - 17 11/13/2024 8:45 AM [facility] Calcium 9.7 8.7 - 10.5 mg/dL 11/13/2024 8:45 AM EST [facility] BUN/Creatinine Ratio 26(H) 10.0 - 25.0 Ratio 11/13/2024 8:45 AM EST [facility] Blood (Plasma/Serum) 11/13/2024 7:30 AM EST 11/13/2024 8:09 AM EST Maddison Villalpando MD LAB BLOOD ORDERABLES Performing Organization Address [facility]/[place] [address], [place] [address] * (ABNORMAL) POCT Glucose, Fingerstick (11/13/2024 3:59 [...] TEST O JOSEPH Performing Organization Address [facility] Co de Phone Number [facility] See Below * (ABNORMAL) POCT Glucose, Fingerstick (11/12/2024 4:41 PM EST) POC Glucose 200(H) 65 - 99 mg/dL 11/12/2024 5:01 PM EST Blood specimen / Unknown 11/12/2024 4:41 PM EST 11/12/2024 5:01 PM EST Dallas Camejo MD POINT OF CARE TEST O JOSEPH Performing Organization Address [facility] de Phone Number [facility] See Below * MRI Brain w/o [...] * PM DUAL LEAD EVAL WITH PROGRAMMING, [id number] (11/12/2024 1:15 PM EST) Date Time Interrogation Session [id number] 4,157 PACEART Implantable Pulse Generator Rf Test Technician [employer] PACEART Implantable Pulse Generator Model [id number] Jaime ESCOBAR PACEART Implantable Pulse Generator Serial Number [id number] PACEART Implantable Pulse Generator Type Pacemaker PACEART [...] reset 99.97 % PACEART Otf Statistic AP DIRECTOR PUBLIC POLICY Percent 76.74 % PACEART Otf Statistic DIRECTOR PUBLIC POLICY Percent 23.23 % PACEART Otf Statistic AP VS Percent 0.01 % PACEART Otf Statistic VS Percent 0.01 % PACEART AT/AF [place] Percent 0 % PACEART Episode Statistic Recent [...] CARE TEST O RDERABLES Performing Organization Address City/[facility] Co de Phone Number HOSPITAL LAB See Below * Phosphorus (11/12/2024 5:00 AM EST) Pathologist [facility] Phosphorus 4.5 2.7 - 4.5 mg/dL 11/12/2024 6:01 AM EST [facility] Blood (Plasma/Serum) 11/12/2024 5:00 AM EST 11/12/2024 5:22 AM EST Luis Degroot MD LAB BLOOD ORDERABLES Performing Organization Address [facility] [place] [address], [place] [address] * Magnesium (11/12/2024 5:00 AM EST) Magnesium 1.8 1.6 - 2.7 mg/dL 11/12/2024 6:01 AM EST [facility] Blood (Plasma/Serum) 11/12/2024 5:00 AM EST 11/12/2024 5:22 AM EST Luis Degroot MD LAB BLOOD ORDERABLES Performing Organization Address [facility] [place] [address], [place] [address] * (ABNORMAL) Complete Blood Count, WITHOUT Differential (routine) (11/12/2024 5:00 AM EST) [facility] White Blood Cell Count 11.1(H) 4.0 - 11.0 Thou/uL 11/12/2024 5:47 AM [facility] Platelet Count 456(H) 150 - 450 Thou/uL 11/12/2024 5:47 AM [facility] Hemoglobin 8.1(L) 13.0 - 17.7 g/dL 11/12/2024 5:47 AM [facility] Hematocrit 26.3(L) 39.0 - 54.0 % 11/12/2024 5:47 AM [facility] Red Blood Cell Count 2.94(L) 4.50 - 6.20 Mil/uL 11/12/2024 5:47 AM [facility] MCV 90 80 - 100 fL 11/12/2024 5:47 AM [facility] MCH 27.6 27.0 - 31.0 pg 11/12/2024 5:47 AM [facility] MCHC 30.8 30.0 - 36.0 g/dL 11/12/2024 5:47 AM [facility] RDW 16.9(H) 11.5 - 14.5 % 11/12/2024 5:47 AM [facility] MPV 9.8 7.5 - 12.5 fL 11/12/2024 5:47 AM [facility] Blood Blood specimen / Unknown 11/12/2024 5:00 AM EST 11/12/2024 5:22 AM EST Luis Degroot MD [place] [address], [place] [address] * (ABNORMAL) Basic Metabolic Panel (11/12/2024 5:00 AM EST) [facility] Glucose 126(H) 65 - 99 mg/dL 11/12/2024 6:01 AM [facility] Comment:Fasting: <100 mg/dL, Non-Fasting: <200 mg/dL (ADA 2005) Blood Urea Nitrogen (BUN) 44(H) 8 - 21 mg/dL 11/12/2024 6:01 AM [facility] Creatinine 1.6(H) 0.5 - 1.3 mg/dL 11/12/2024 6:01 AM [facility] eGFR 48(L) >59 11/12/2024 6:01 AM [facility] Comment:CKD-EPI (2020) in mL /min/1.73 sq meters. Sodium 138 136 - 145 mmol/L 11/12/2024 6:01 AM [facility] Potassium 3.7 3.4 - 5.3 mmol/L 11/12/2024 6:01 AM [facility] Chloride 96(L) 98 - 107 mmol/L 11/12/2024 6:01 AM [facility] CO2 30 22 - 33 mmol/L 11/12/2024 6:01 AM [facility] Anion Gap 12 7 - 17 11/12/2024 6:01 AM [facility] Calcium 9.1 8.7 - 10.5 mg/dL 11/12/2024 6:01 AM [facility] BUN/Creatinine Ratio 28(H) 10.0 - 25.0 Ratio 11/12/2024 6:01 AM [facility] Blood (Plasma/Serum) 11/12/2024 5:00 AM EST 11/12/2024 5:22 AM EST Luis Degroot MD LAB BLOOD ORDERABLES Performing Organization Address City/[facility]/[place] [address], [place] [address] * (ABNORMAL) POCT Glucose, Fingerstick (11/12/2024 4:51 [...] TEST O JOSEPH Performing Organization Address [facility] Phone Number HOSPITAL LAB See Below * (ABNORMAL) POCT Glucose, Fingerstick (11/12/2024 12:21 AM EST) POC Glucose 130(H) 65 - 99 mg/dL 11/12/2024 12:22 AM EST Blood specimen / Unknown 11/12/2024 12:21 AM EST 11/12/2024 12:22 AM EST Dallas Camejo MD POINT OF CARE TEST O JOSEPH Performing Organization Address [facility] Phone Number [facility] See Below * (ABNORMAL) POCT Glucose, Fingerstick (11/11/2024 9:17 PM EST) POC Glucose 224(H) 65 - 99 mg/dL 11/11/2024 9:21 PM EST Blood specimen / Unknown 11/11/2024 9:17 PM EST 11/11/2024 9:21 PM EST Dallas Camejo MD POINT OF CARE TEST O JOSEPH Performing Organization Address [facility] Phone Number HOSPITAL LAB See Below * (ABNORMAL) POCT Glucose, Fingerstick (11/11/2024 5:06 PM EST) POC Glucose 149(H) 65 - 99 mg/dL 11/11/2024 5:37 PM EST Blood specimen / Unknown 11/11/2024 5:06 PM EST 11/11/2024 5:37 PM EST Dallas Camejo MD POINT OF CARE TEST O RDERABLES HOSPITAL LAB See Below * PM DUAL LEAD EVAL WITH PROGRAMMING, [id number] (11/11/2024 4:33 PM EST) Date Time Interrogation Session [id number] 1,358 PACEART Implantable Pulse Generator Rf Test Technician [employer] PACEART Implantable Pulse Generator Model [id number] Jaime ESCOBAR PACEART Implantable Pulse Generator Serial Number [id number] PACEART Implantable Pulse Generator Type Pacemaker PACEART [...] reset 89.06 % PACEART Otf Statistic AP DIRECTOR PUBLIC POLICY Percent 62.37 % PACEART Otf Statistic DIRECTOR PUBLIC POLICY Percent 26.83 % PACEART Otf Statistic AP VS Percent 8.97 % PACEART Otf Statistic VS Percent 1.83 % PACEART AT/AF [place] Percent 0 % PACEART Episode Statistic Recent [...] ordered for function. Presenting rhythm: AP / DIRECTOR PUBLIC POLICY @ 60 bpm. Underlying rhythm: SB @ [...] inserted atraumatically into the esophagus by the board writer. With the patient in a supine position [...] 2.7 - 4.5 mg/dL 11/11/2024 3:00 PM [facility] Blood (Plasma/Serum) 11/11/2024 2:00 PM EST 11/11/2024 2:19 PM EST Nani Hollis PA-C LAB BLOOD ORDERABLES Performing Organization Address [facility] [place] [address], [place] [address] * Magnesium (11/11/2024 2:00 PM EST) Magnesium 1.8 1.6 - 2.7 mg/dL 11/11/2024 3:00 PM [facility] Blood (Plasma/Serum) 11/11/2024 2:00 PM EST 11/11/2024 2:19 PM EST Nani Hollis PA-C LAB BLOOD ORDERABLES Performing Organization Address [facility] [place] [address], [place] [address] * (ABNORMAL) Basic Metabolic Panel (11/11/2024 2:00 PM EST) Glucose 124(H) 65 - 99 mg/dL 11/11/2024 3:00 PM [facility] Comment:Fasting: <100 mg/dL, Non-Fasting: <200 mg/dL (ADA 2005) Blood Urea Nitrogen (BUN) 49(H) 8 - 21 mg/dL 11/11/2024 3:00 PM [facility] Creatinine 1.7(H) 0.5 - 1.3 mg/dL 11/11/2024 3:00 PM [facility] eGFR 45(L) >59 11/11/2024 3:00 PM [facility] Comment:CKD-EPI (2020) in mL /min/1.73 sq meters. Sodium 139 136 - 145 mmol/L 11/11/2024 3:00 PM [facility] Potassium 3.4 3.4 - 5.3 mmol/L 11/11/2024 3:00 PM [facility] Chloride 97(L) 98 - 107 mmol/L 11/11/2024 3:00 PM [facility] CO2 30 22 - 33 mmol/L 11/11/2024 3:00 PM [facility] Anion Gap 12 7 - 17 11/11/2024 3:00 PM [facility] Calcium 9.0 8.7 - 10.5 mg/dL 11/11/2024 3:00 PM [facility] BUN/Creatinine Ratio 29(H) 10.0 - 25.0 Ratio 11/11/2024 3:00 PM [facility] Blood (Plasma/Serum) 11/11/2024 2:00 PM EST 11/11/2024 2:19 PM EST Nani Hollis PA-C LAB BLOOD ORDERABLES Performing Organization Address [facility]/[place] [address], [place] [address] * (ABNORMAL) POCT Glucose, Fingerstick (11/11/2024 11:53 [...] TEST O JOSEPH Performing Organization Address [facility] Co de Phone Number [facility] See Below * (ABNORMAL) POCT Glucose, Fingerstick (11/11/2024 2:35 AM EST) POC Glucose 174(H) 65 - 99 mg/dL 11/11/2024 3:47 AM EST Blood specimen / Unknown 11/11/2024 2:35 AM EST 11/11/2024 3:46 AM EST Dallas Camejo MD POINT OF CARE TEST O JOSEPH Performing Organization Address [facility] Phone Number [facility] See Below * (ABNORMAL) proBNP, N-terminal (11/11/2024 2:00 AM EST) Pathologist [facility] proBNP, N-terminal 2,964(H) <125 pg/mL 11/11/2024 3:18 AM EST [facility] Blood Plasma specimen / Unknown 11/11/2024 2:00 AM EST 11/11/2024 2:53 AM EST Nani Hollis PA-C LAB BLOOD ORDERABLES Performing Organization Address [facility] de Phone Number [address] [address], [address] [address] * (ABNORMAL) Complete Blood Count, WITHOUT Differential (routine) (11/11/2024 2:00 AM EST) Pathologist [facility] White Blood Cell Count 13.2(H) 4.0 - 11.0 Thou/uL 11/11/2024 2:57 AM [facility] Platelet Count 460(H) 150 - 450 Thou/uL 11/11/2024 2:57 AM [facility] Hemoglobin 8.2(L) 13.0 - 17.7 g/dL 11/11/2024 2:57 AM [facility] Hematocrit 26.1(L) 39.0 - 54.0 % 11/11/2024 2:57 AM [facility] Red Blood Cell Count 2.91(L) 4.50 - 6.20 Mil/uL 11/11/2024 2:57 AM [facility] MCV 90 80 - 100 fL 11/11/2024 2:57 AM [facility] MCH 28.2 27.0 - 31.0 pg 11/11/2024 2:57 AM [facility] MCHC 31.4 30.0 - 36.0 g/dL 11/11/2024 2:57 AM [facility] RDW 17.0(H) 11.5 - 14.5 % 11/11/2024 2:57 AM [facility] MPV 9.8 7.5 - 12.5 fL 11/11/2024 2:57 AM [facility] Blood Blood specimen / Unknown 11/11/2024 2:00 AM EST 11/11/2024 2:53 AM EST Nani Hollis PA-C LAB BLOOD ORDERABLES Performing Organization Address [facility] [place] [address], [place] [address] * (ABNORMAL) Phosphorus (11/11/2024 2:00 AM EST) Phosphorus 4.7(H) 2.7 - 4.5 mg/dL 11/11/2024 3:18 AM [facility] Blood (Plasma/Serum) 11/11/2024 2:00 AM EST 11/11/2024 2:53 AM EST Nani Hollis PA-C LAB BLOOD ORDERABLES Performing Organization Address City/[facility]/[place] [address], [facility] [address] [place] [address] * Magnesium (11/11/2024 2:00 AM EST) Magnesium 2.0 1.6 - 2.7 mg/dL 11/11/2024 3:18 AM [facility] Blood (Plasma/Serum) 11/11/2024 2:00 AM EST 11/11/2024 2:53 AM EST Nani Hollis PA-C LAB BLOOD ORDERABLES [facility] [address] [place] [address], [place] [address] * (ABNORMAL) Basic Metabolic Panel (11/11/2024 2:00 AM EST) Glucose 151(H) 65 - 99 mg/dL 11/11/2024 3:18 AM [facility] Comment:Fasting: <100 mg/dL, Non-Fasting: <200 mg/dL (ADA 2004) Blood Urea Nitrogen (BUN) 56(H) 8 - 21 mg/dL 11/11/2024 3:18 AM [facility] Creatinine 2.0(H) 0.5 - 1.3 mg/dL 11/11/2024 3:18 AM [facility] eGFR 37(L) >59 11/11/2024 3:18 AM [facility] Comment:CKD-EPI (2020) in mL /min/1.73 sq meters. Sodium 137 136 - 145 mmol/L 11/11/2024 3:18 AM [facility] Potassium 3.8 3.4 - 5.3 mmol/L 11/11/2024 3:18 AM [facility] Chloride 99 98 - 107 mmol/L 11/11/2024 3:18 AM [facility] CO2 27 22 - 33 mmol/L 11/11/2024 3:18 AM [facility] Anion Gap 11 7 - 17 11/11/2024 3:18 AM [facility] Calcium 8.7 8.7 - 10.5 mg/dL 11/11/2024 3:18 AM [facility] BUN/Creatinine Ratio 28(H) 10.0 - 25.0 Ratio 11/11/2024 3:18 AM [facility] Blood (Plasma/Serum) 11/11/2024 2:00 AM EST 11/11/2024 2:53 AM EST Nani Hollis PA-C LAB BLOOD ORDERABLES Performing Organization Address [facility]/ZIP Co de Phone Number [address] [address], [place] [address] * (ABNORMAL) Hepatic Function Panel (Routine) (11/11/2024 2:00 AM EST) Alkaline Phosphatase 207(H) 45 - 128 U/L 11/11/2024 3:18 AM [facility] Aspartate Aminotrans (AST) 24 10 - 55 U/L 11/11/2024 3:18 AM [facility] Alanine Aminotrans (ALT) 14 10 - 55 U/L 11/11/2024 3:18 AM [facility] Bilirubin, Total 0.2 0.2 - 1.0 mg/dL 11/11/2024 3:18 AM [facility] Protein, Total 6.4 6.3 - 8.3 g/dL 11/11/2024 3:18 AM [facility] Albumin 2.6(L) 3.4 - 4.8 g/dL 11/11/2024 3:18 AM [facility] Bilirubin, Direct 0.1 0 - 0.2 mg/dL 11/11/2024 3:18 AM [facility] Globulin 3.8 1.5 - 3.9 g/dL 11/11/2024 3:18 AM [facility] Albumin/Globulin Ratio 0.7(L) 1.0 - 3.0 Ratio 11/11/2024 3:18 AM [facility] Blood (Plasma/Serum) 11/11/2024 2:00 AM EST 11/11/2024 2:53 AM EST Nani Hollis PA-C [place] [address], [place] [address] * Creatine Kinase (CK) (11/11/2024 2:00 AM EST) Creatine Kinase (CK) 37 24 - 204 U/L 11/11/2024 3:18 AM EST [facility] Blood (Plasma/Serum) 11/11/2024 2:00 AM EST 11/11/2024 2:53 AM EST Nani Hollis PA-C LAB BLOOD ORDERABLES Performing Organization Address City/[facility]/[place] [address], [place] [address] * (ABNORMAL) POCT Glucose, Fingerstick (11/10/2024 7:55 PM EST) Pathologist [facility] POC Glucose 229(H) 65 - 99 mg/dL [...] CARE TEST O RDERABLES Performing Organization Address City/[facility]/ZIP Co de Phone Number HOSPITAL LAB See Below * (ABNORMAL) Phosphorus (11/10/2024 12:03 PM EST) Phosphorus 5.2(H) 2.7 - 4.5 mg/dL 11/10/2024 1:06 PM EST [facility] Blood (Plasma/Serum) 11/10/2024 12:03 PM EST 11/10/2024 12:27 PM EST Nani Hollis PA-C LAB BLOOD ORDERABLES Performing Organization Address [facility]/[place] [address], [place] [address] * Magnesium (11/10/2024 12:03 PM EST) Magnesium 2.0 1.6 - 2.7 mg/dL 11/10/2024 1:06 PM EST [facility] Blood (Plasma/Serum) 11/10/2024 12:03 PM EST 11/10/2024 12:27 PM EST Nani Hollis PA-C LAB BLOOD ORDERABLES [address] [address], [place] [address] * (ABNORMAL) Basic Metabolic Panel (11/10/2024 12:03 PM EST) Glucose 135(H) 65 - 99 mg/dL 11/10/2024 1:06 PM [facility] Comment:Fasting: <100 mg/dL, Non-Fasting: <200 mg/dL (ADA 2004) Blood Urea Nitrogen (BUN) 57(H) 8 - 21 mg/dL 11/10/2024 1:06 PM [facility] Creatinine 1.9(H) 0.5 - 1.3 mg/dL 11/10/2024 1:06 PM [facility] eGFR 39(L) >59 11/10/2024 1:06 PM [facility] Comment:CKD-EPI (2020) in mL /min/1.73 sq meters. Sodium 137 136 - 145 mmol/L 11/10/2024 1:06 PM [facility] Potassium 3.8 3.4 - 5.3 mmol/L 11/10/2024 1:06 PM [facility] Chloride 101 98 - 107 mmol/L 11/10/2024 1:06 PM [facility] CO2 25 22 - 33 mmol/L 11/10/2024 1:06 PM [facility] Anion Gap 11 7 - 17 11/10/2024 1:06 PM [facility] Calcium 8.5(L) 8.7 - 10.5 mg/dL 11/10/2024 1:06 PM [facility] BUN/Creatinine Ratio 30(H) 10.0 - 25.0 Ratio 11/10/2024 1:06 PM [facility] Blood (Plasma/Serum) 11/10/2024 12:03 PM EST 11/10/2024 12:27 PM EST Nani PATTON-Annemarie LAB BLOOD ORDERABLES [address] [address], [address] [place] [address] * (ABNORMAL) POCT Glucose, Fingerstick (11/10/2024 11:36 AM EST) POC Glucose 143(H) 65 - 99 mg/dL 11/10/2024 11:36 AM EST Blood specimen / Unknown 11/10/2024 11:36 AM EST 11/10/2024 11:37 AM EST Dallas Camejo MD [facility] See Below * (ABNORMAL) POCT Glucose, Fingerstick (11/10/2024 7:42 AM EST) POC Glucose 134(H) 65 - 99 mg/dL 11/10/2024 7:43 AM EST Blood specimen / Unknown 11/10/2024 7:42 AM EST 11/10/2024 7:43 AM EST Dallas Camejo MD [facility] C[facility] See Below * (ABNORMAL) POCT Glucose, Fingerstick (11/10/2024 2:02 AM EST) POC Glucose 126(H) 65 - 99 mg/dL 11/10/2024 2:03 AM EST Blood specimen / Unknown 11/10/2024 2:02 AM EST 11/10/2024 2:03 AM EST Dallas Camejo MD POINT [facility] CARE TEST [facility] See Below * (ABNORMAL) Phosphorus (11/10/2024 12:04 AM EST) Phosphorus 5.6(H) 2.7 - 4.5 mg/dL 11/10/2024 1:09 AM EST [facility] Blood (Plasma/Serum) 11/10/2024 12:04 AM EST 11/10/2024 12:33 AM EST Claire Garibay PA-C LAB BLOOD ORDERABLES Performing Organization Address City/[facility]/[place] [address], [place] [address] * Magnesium (11/10/2024 12:04 AM EST) Magnesium 2.1 1.6 - 2.7 mg/dL 11/10/2024 1:09 AM [facility] Blood (Plasma/Serum) 11/10/2024 12:04 AM EST 11/10/2024 12:33 AM EST Claire Garibay PA-C LAB BLOOD ORDERABLES Performing Organization Address [facility] [place] [address], [place] [address] * (ABNORMAL) Basic Metabolic Panel (11/10/2024 12:04 AM EST) Glucose 122(H) 65 - 99 mg/dL 11/10/2024 1:09 AM [facility] Comment:Fasting: <100 mg/dL, Non-Fasting: <200 mg/dL (ADA 2004) Blood Urea Nitrogen (BUN) 56(H) 8 - 21 mg/dL 11/10/2024 1:09 AM [facility] Creatinine 2.0(H) 0.5 - 1.3 mg/dL 11/10/2024 1:09 AM [facility] eGFR 37(L) >59 11/10/2024 1:09 AM [facility] Comment:CKD-EPI (2020) in mL /min/1.73 sq meters. Sodium 135(L) 136 - 145 mmol/L 11/10/2024 1:09 AM [facility] Potassium 3.8 3.4 - 5.3 mmol/L 11/10/2024 1:09 AM [facility] Chloride 100 98 - 107 mmol/L 11/10/2024 1:09 AM [facility] CO2 24 22 - 33 mmol/L 11/10/2024 1:09 AM [facility] Anion Gap 11 7 - 17 11/10/2024 1:09 AM [facility] Calcium 8.2(L) 8.7 - 10.5 mg/dL 11/10/2024 1:09 AM [facility] BUN/Creatinine Ratio 28(H) 10.0 - 25.0 Ratio 11/10/2024 1:09 AM [facility] Blood (Plasma/Serum) 11/10/2024 12:04 AM EST 11/10/2024 12:33 AM EST Claire Garibay PA-C [place] [address], [place] [address] * (ABNORMAL) COMPLETE BLOOD COUNT, WITHOUT DIFFERENTIAL (11/10/2024 12:04 AM EST) White Blood Cell Count 13.5(H) 4.0 - 11.0 Thou/uL 11/10/2024 12:47 AM [facility] Platelet Count 445 150 - 450 Thou/uL 11/10/2024 12:47 AM [facility] Hemoglobin 7.6(L) 13.0 - 17.7 g/dL 11/10/2024 12:47 AM [facility] Hematocrit 25.2(L) 39.0 - 54.0 % 11/10/2024 12:47 AM [facility] Red Blood Cell Count 2.75(L) 4.50 - 6.20 Mil/uL 11/10/2024 12:47 AM [facility] MCV 92 80 - 100 fL 11/10/2024 12:47 AM [facility] MCH 27.6 27.0 - 31.0 pg 11/10/2024 12:47 AM [facility] MCHC 30.2 30.0 - 36.0 g/dL 11/10/2024 12:47 AM [facility] RDW 17.2(H) 11.5 - 14.5 % 11/10/2024 12:47 AM [facility] MPV 9.7 7.5 - 12.5 fL 11/10/2024 12:47 AM EST [facility] Blood Blood specimen / Unknown 11/10/2024 12:04 AM EST 11/10/2024 12:33 AM EST Claire Garibay PA-C LAB BLOOD ORDERABLES Performing Organization Address City/[facility]/ZIP Co de Phone Number [address] [address], [address] [address] * (ABNORMAL) POCT Glucose, Fingerstick (11/09/2024 8:03 [...] (ABNORMAL) proBNP, N-terminal (11/09/2024 10:04 AM EST) proBNP, N-terminal 4,654(H) <125 pg/mL 11/09/2024 12:58 PM EST [facility] Plasma specimen / Unknown 11/09/2024 10:04 AM EST 11/09/2024 10:25 AM EST Claire Garibay PA-C LAB BLOOD ORDERABLES Performing Organization Address [facility] Co de Phone Number [address] [address], [address] [address] * (ABNORMAL) Procalcitonin (11/09/2024 10:04 AM EST) Pathologist [facility] Procalcitonin 0.40(H) <0.09 ng/mL 11/09/2024 11:01 AM [facility] Comment: (NOTE) ?Procalcitonin (PCT) Guided Antibiotic ? [...] LAB BLOOD ORDERABLES Performing Organization Address [facility] [place] [address], [place] [address] * (ABNORMAL) POCT Glucose, Fingerstick (11/09/2024 7:29 AM EST) POC Glucose 153(H) 65 - 99 mg/dL 11/09/2024 7:33 AM EST Blood specimen / Unknown 11/09/2024 7:29 AM EST 11/09/2024 7:33 AM EST Dallas Camejo MD [facility]INT [facility] C[facility] See Below * (ABNORMAL) Phosphorus (11/09/2024 1:50 AM EST) Phosphorus 5.2(H) 2.7 - 4.5 mg/dL 11/09/2024 2:56 AM EST [facility] Blood (Plasma/Serum) 11/09/2024 1:50 AM EST 11/09/2024 2:31 AM EST Shay Martin MD LAB BLOOD ORDERAB LES Performing Organization Address [facility] [place] [address], [place] [address] * Magnesium (11/09/2024 1:50 AM EST) Magnesium 2.3 1.6 - 2.7 mg/dL 11/09/2024 2:56 AM EST [facility] Blood (Plasma/Serum) 11/09/2024 1:50 AM EST 11/09/2024 2:31 AM EST Shay Martin MD LAB BLOOD ORDERAB LES Performing Organization Address [facility] [place] [address], [place] [address] * (ABNORMAL) COMPLETE BLOOD COUNT, WITHOUT DIFFERENTIAL (11/09/2024 1:50 AM EST) White Blood Cell Count 11.9(H) 4.0 - 11.0 Thou/uL 11/09/2024 2:36 AM [facility] Platelet Count 405 150 - 450 Thou/uL 11/09/2024 2:36 AM [facility] Hemoglobin 7.7(L) 13.0 - 17.7 g/dL 11/09/2024 2:36 AM [facility] Hematocrit 24.9(L) 39.0 - 54.0 % 11/09/2024 2:36 AM [facility] Red Blood Cell Count 2.72(L) 4.50 - 6.20 Mil/uL 11/09/2024 2:36 AM [facility] MCV 92 80 - 100 fL 11/09/2024 2:36 AM [facility] MCH 28.3 27.0 - 31.0 pg 11/09/2024 2:36 AM [facility] MCHC 30.9 30.0 - 36.0 g/dL 11/09/2024 2:36 AM [facility] RDW 17.1(H) 11.5 - 14.5 % 11/09/2024 2:36 AM [facility] MPV 9.6 7.5 - 12.5 fL 11/09/2024 2:36 AM [facility] Blood Blood specimen / Unknown 11/09/2024 1:50 AM EST 11/09/2024 2:31 AM EST Shay Martin MD [place] [address], [place] [address] * (ABNORMAL) Basic Metabolic Panel (11/09/2024 1:50 AM EST) Glucose 117(H) 65 - 99 mg/dL 11/09/2024 2:56 AM [facility] Comment:Fasting: <100 mg/dL, Non-Fasting: <200 mg/dL (ADA 2005) Blood Urea Nitrogen (BUN) 46(H) 8 - 21 mg/dL 11/09/2024 2:56 AM [facility] Creatinine 1.8(H) 0.5 - 1.3 mg/dL 11/09/2024 2:56 AM [facility] eGFR 42(L) >59 11/09/2024 2:56 AM [facility] Comment:CKD-EPI (2020) in mL /min/1.73 sq meters. Sodium 139 136 - 145 mmol/L 11/09/2024 2:56 AM [facility] Potassium 3.6 3.4 - 5.3 mmol/L 11/09/2024 2:56 AM [facility] Chloride 101 98 - 107 mmol/L 11/09/2024 2:56 AM [facility] CO2 25 22 - 33 mmol/L 11/09/2024 2:56 AM [facility] Anion Gap 13 7 - 17 11/09/2024 2:56 AM [facility] Calcium 8.2(L) 8.7 - 10.5 mg/dL 11/09/2024 2:56 AM [facility] BUN/Creatinine Ratio 26(H) 10.0 - 25.0 Ratio 11/09/2024 2:56 AM [facility] Blood (Plasma/Serum) 11/09/2024 1:50 AM EST 11/09/2024 2:31 AM EST Shay Martin MD LAB BLOOD ORDERAB LES Performing Organization Address City/[facility]/[place] [address], [place] [address] * (ABNORMAL) POCT Glucose, Fingerstick (11/09/2024 1:41 [...] [facility] See Below * INSJ NON-TUNNELED [...] to verify the correct patient, procedure, equipment, customer support assistant and site/side marked as required. Indications: vascular [...] 7.35 7.33 - 7.43 11/08/2024 6:00 PM EST [facility] Venous pCO2 49 35 - 50 mmHG 11/08/2024 6:00 PM [facility] Venous pO2 45 0 - 60 mmHG 11/08/2024 6:00 PM [facility] Venous Total CO2 28 23 - 29 mmol/L 11/08/2024 6:00 PM [facility] Respiratory Info NASAL 6 L/MIN 11/08/2024 5:29 PM EST Base Excess 0.9 mmol/L 11/08/2024 6:00 PM [facility] Comment:Reference Range: Neg ative 2 to Positive 3 Blood Blood specimen / Unknown 11/08/2024 5:46 PM EST 11/08/2024 5:55 PM EST Eunice Garrison APRN LAB BLOOD ORDERA BLES Performing Organization Address [facility]/[place] [address], [place] [address] * (ABNORMAL) Phosphorus (Routine) (11/08/2024 5:46 PM EST) Phosphorus 4.9(H) 2.7 - 4.5 mg/dL 11/08/2024 7:23 PM EST [facility] Blood (Plasma/Serum) 11/08/2024 5:46 PM EST 11/08/2024 6:51 PM EST Eunice Garrison APRN [place] [address], [place] [address] * Magnesium (Routine) (11/08/2024 5:46 PM EST) Magnesium 1.9 1.6 - 2.7 mg/dL 11/08/2024 7:23 PM [facility] Blood (Plasma/Serum) 11/08/2024 5:46 PM EST 11/08/2024 6:51 PM EST Eunice Garrison APRN [place] [address], [place] [address] * (ABNORMAL) Basic Metabolic Panel (Routine) (11/08/2024 5:46 PM EST) Glucose 134(H) 65 - 99 mg/dL 11/08/2024 7:23 PM [facility] Comment:Fasting: <100 mg/dL, Non-Fasting: <200 mg/dL (ADA 2004) Blood Urea Nitrogen (BUN) 45(H) 8 - 21 mg/dL 11/08/2024 7:23 PM [facility] Creatinine 1.7(H) 0.5 - 1.3 mg/dL 11/08/2024 7:23 PM [facility] eGFR 45(L) >59 11/08/2024 7:23 PM [facility] Comment:CKD-EPI (2020) in mL /min/1.73 sq meters. Sodium 141 136 - 145 mmol/L 11/08/2024 7:23 PM [facility] Potassium 3.3(L) 3.4 - 5.3 mmol/L 11/08/2024 7:23 PM [facility] Chloride 102 98 - 107 mmol/L 11/08/2024 7:23 PM [facility] CO2 26 22 - 33 mmol/L 11/08/2024 7:23 PM [facility] Anion Gap 13 7 - 17 11/08/2024 7:23 PM EST [facility] Calcium 8.6(L) 8.7 - 10.5 mg/dL 11/08/2024 7:23 PM EST [facility] BUN/Creatinine Ratio 26(H) 10.0 - 25.0 Ratio 11/08/2024 7:23 PM EST [facility] Blood (Plasma/Serum) 11/08/2024 5:46 PM EST 11/08/2024 6:51 PM EST Eunicehenri Colmenareskailey BILL ADJUSTER LAB BLOOD ORDERA BLES [address] [address], [address] [address] * XR Chest 1 view-Portable (STAT) (11/08/2024 [...] prior study. Interpreted by: ??Bashir Barrientos MD Form Setter Helper I personally reviewed the images and the [...] prior study. Interpreted by: Bashir Barrientos MD Form Setter Helper I personally reviewed the images and the resident's preliminary report and AGREE with the report as it is now presented ([id number]). Eunice Garrison APRN IMG DIAGNOSTIC I MAGING ORDERABLES * (ABNORMAL) POCT Glucose, Fingerstick (11/08/2024 5:34 PM EST) Pathologist [facility] POC Glucose 170(H) 65 - 99 mg/dL 11/08/2024 7:52 PM EST Blood specimen / Unknown 11/08/2024 5:34 PM EST 11/08/2024 7:52 PM EST Dallas Camejo MD POINT [facility] C[facility] TEST [facility] See Below * (ABNORMAL) POCT Glucose, Fingerstick (11/08/2024 11:28 AM EST) Pathologist [facility] POC Glucose 162(H) 65 - 99 mg/dL [...] TEST O JOSEPH Performing Organization Address [facility] Co de Phone Number HOSPITAL LAB See Below * CT Head [...] of iterative reconstruction technique Kayla Orona APRN IMG CT ORDERABLES * (ABNORMAL) POCT Glucose, Fingerstick (11/08/2024 2:03 AM EST) POC Glucose 209(H) 65 - 99 mg/dL 11/08/2024 2:59 AM EST Blood specimen / Unknown 11/08/2024 2:03 AM EST 11/08/2024 2:59 AM EST Dallas Cameoj MD POINT [facility] C[facility] TEST [facility] See Below * (ABNORMAL) High Sensitivity Troponin T (Once) (11/08/2024 12:05 AM EST) Pathologist [facility] High Sensitivity Troponin T 26(H) <23 ng/L 11/08/2024 12:39 AM EST [facility] Delta (Change) NO CHANGE <3 11/08/2024 12:39 AM EST [facility] Blood (Plasma/Serum) 11/08/2024 12:05 AM EST 11/08/2024 12:16 AM EST Kayla Orona APRN LAB BLOOD ORDERABLES [address] [address], [address] [address] * Creatine Kinase (CK) (11/08/2024 12:05 AM EST) Creatine Kinase (CK) 91 24 - 204 U/L 11/08/2024 12:39 AM [facility] Blood (Plasma/Serum) 11/08/2024 12:05 AM EST 11/08/2024 12:16 AM EST [facility] LAB BLOOD ORDERABLES Performing Organization Address City/[facility]/[place] [address], [place] [address] * (ABNORMAL) proBNP, N-terminal (11/08/2024 12:05 AM EST) proBNP, N-terminal 4,241(H) <125 pg/mL 11/08/2024 12:39 AM [facility] Blood Plasma specimen / Unknown 11/08/2024 12:05 AM EST 11/08/2024 12:16 AM EST [facility] LAB BLOOD ORDERABLES Performing Organization Address City/[facility]/[place] [address], [place] [address] * (ABNORMAL) HEPATIC FUNCTION PANEL (11/08/2024 12:05 AM EST) Alkaline Phosphatase 226(H) 45 - 128 U/L 11/08/2024 12:39 AM [facility] Aspartate Aminotrans (AST) 24 10 - 55 U/L 11/08/2024 12:39 AM [facility] Alanine Aminotrans (ALT) 24 10 - 55 U/L 11/08/2024 12:39 AM [facility] Bilirubin, Total <0.2(L) 0.2 - 1.0 mg/dL 11/08/2024 12:39 AM [facility] Protein, Total 5.5(L) 6.3 - 8.3 g/dL 11/08/2024 12:39 AM [facility] Albumin 2.3(L) 3.4 - 4.8 g/dL 11/08/2024 12:39 AM [facility] Bilirubin, Direct 0.1 0 - 0.2 mg/dL 11/08/2024 12:39 AM [facility] Globulin 3.2 1.5 - 3.9 g/dL 11/08/2024 12:39 AM [facility] Albumin/Globulin Ratio 0.7(L) 1.0 - 3.0 Ratio 11/08/2024 12:39 AM [facility] Blood (Plasma/Serum) 11/08/2024 12:05 AM EST 11/08/2024 12:16 AM EST Kayla Orona APRN LAB BLOOD ORDERABLES Performing Organization Address City/State/[facility] [place] [address], [place] [address] * (ABNORMAL) COMPLETE BLOOD COUNT, WITHOUT DIFFERENTIAL (11/08/2024 12:05 AM EST) White Blood Cell Count 13.1(H) 4.0 - 11.0 Thou/uL 11/08/2024 12:22 AM [facility] Platelet Count 378 150 - 450 Thou/uL 11/08/2024 12:22 AM [facility] Hemoglobin 7.9(L) 13.0 - 17.7 g/dL 11/08/2024 12:22 AM [facility] Hematocrit 25.6(L) 39.0 - 54.0 % 11/08/2024 12:22 AM [facility] Red Blood Cell Count 2.83(L) 4.50 - 6.20 Mil/uL 11/08/2024 12:22 AM [facility] MCV 91 80 - 100 fL 11/08/2024 12:22 AM [facility] MCH 27.9 27.0 - 31.0 pg 11/08/2024 12:22 AM [facility] MCHC 30.9 30.0 - 36.0 g/dL 11/08/2024 12:22 AM [facility] RDW 16.9(H) 11.5 - 14.5 % 11/08/2024 12:22 AM [facility] MPV 9.3 7.5 - 12.5 fL 11/08/2024 12:22 AM EST [facility] Blood Blood specimen / Unknown 11/08/2024 12:05 AM EST 11/08/2024 12:16 AM EST [facility] LAB BLOOD ORDERABLES Performing Organization Address City/[facility]/[place] [address], [place] [address] * (ABNORMAL) Phosphorus (11/08/2024 12:05 AM EST) Phosphorus 5.2(H) 2.7 - 4.5 mg/dL 11/08/2024 12:39 AM [facility] Blood (Plasma/Serum) 11/08/2024 12:05 AM EST 11/08/2024 12:16 AM EST [facility] LAB BLOOD ORDERABLES Performing Organization Address [facility]/[place] [address], [place] [address] * Magnesium (11/08/2024 12:05 AM EST) Magnesium 2.0 1.6 - 2.7 mg/dL 11/08/2024 12:39 AM [facility] Blood (Plasma/Serum) 11/08/2024 12:05 AM EST 11/08/2024 12:16 AM EST [facility] LAB BLOOD ORDERABLES Performing Organization Address City/[facility] [place] [address], [place] [address] * (ABNORMAL) Basic Metabolic Panel (11/08/2024 12:05 AM EST) Glucose 231(H) 65 - 99 mg/dL 11/08/2024 12:39 AM [facility] Comment:Fasting: <100 mg/dL, Non-Fasting: <200 mg/dL (ADA 2004) Blood Urea Nitrogen (BUN) 48(H) 8 - 21 mg/dL 11/08/2024 12:39 AM [facility] Creatinine 1.6(H) 0.5 - 1.3 mg/dL 11/08/2024 12:39 AM [facility] eGFR 48(L) >59 11/08/2024 12:39 AM [facility] Comment:CKD-EPI (2020) in mL /min/1.73 sq meters. Sodium 133(L) 136 - 145 mmol/L 11/08/2024 12:39 AM [facility] Potassium 3.8 3.4 - 5.3 mmol/L 11/08/2024 12:39 AM [facility] Chloride 98 98 - 107 mmol/L 11/08/2024 12:39 AM [facility] CO2 21(L) 22 - 33 mmol/L 11/08/2024 12:39 AM [facility] Anion Gap 14 7 - 17 11/08/2024 12:39 AM [facility] Calcium 7.9(L) 8.7 - 10.5 mg/dL 11/08/2024 12:39 AM [facility] BUN/Creatinine Ratio 30(H) 10.0 - 25.0 Ratio 11/08/2024 12:39 AM [facility] Blood (Plasma/Serum) 11/08/2024 12:05 AM EST 11/08/2024 12:16 AM EST Kayla Orona APRN LAB BLOOD ORDERABLES [address] [address], [address] [address] * (ABNORMAL) POCT Glucose, Fingerstick (11/07/2024 7:47 PM EST) POC Glucose 261(H) 65 - 99 mg/dL 11/07/2024 7:53 PM EST Blood specimen / Unknown 11/07/2024 7:47 PM EST 11/07/2024 7:53 PM EST Dallas Camejo MD POINT OF CARE TEST [facility] See Below * Respiratory PCR Panel (11/07/2024 6:30 PM EST) Adenovirus Not Detected Not Detected 11/08/2024 12:23 AM [facility] Coronavirus 229E Not Detected Not Detected 11/08/2024 12:23 AM [facility] Coronavirus HKU1 Not Detected Not Detected 11/08/2024 12:23 AM [facility] Coronavirus NL63 Not Detected Not Detected 11/08/2024 12:23 AM [facility] Coronavirus OC43 Not Detected Not Detected 11/08/2024 12:23 AM [facility] Human Metapneumovirus Not Detected Not Detected 11/08/2024 12:23 AM [facility] Rhinovirus/Enterov irus Not Detected Not Detected 11/08/2024 12:23 AM [facility] Influenza A Not Detected Not Detected 11/08/2024 12:23 AM [facility] Influenza B Not Detected Not Detected 11/08/2024 12:23 AM [facility] Parainfluenza 1 (PIV1) Not Detected Not Detected 11/08/2024 12:23 AM [facility] Parainfluenza 2 (PIV2) Not Detected Not Detected 11/08/2024 12:23 AM [facility] Parainfluenza 3 (PIV3) Not Detected Not Detected 11/08/2024 12:23 AM [facility] Parainfluenza 4 (PIV4) Not Detected Not Detected 11/08/2024 12:23 AM [facility] Respiratory Syncytial Virus Not Detected Not Detected 11/08/2024 12:23 AM [facility] Bordetella pertussis Not Detected Not Detected 11/08/2024 12:23 AM [facility] Chlamydophila pneumoniae Not Detected Not Detected 11/08/2024 12:23 AM [facility] Mycoplasma pneumoniae Not Detected Not Detected 11/08/2024 12:23 AM [facility] Bordetella parapertussis Not Detected Not Detected 11/08/2024 12:23 AM [facility] SARS CoV 2 Not Detected Not Detected 11/08/2024 12:23 AM [facility] X-Specimen 24 Nasopharyngeal swab / Unknown 11/07/2024 6:30 PM EST 11/07/2024 8:00 PM EST Kayla Orona APRN MICROBIOLOGY - GENER AL ORDERABLES [facility] [address] [place] [address], * (ABNORMAL) High Sensitivity Troponin T (Once) (11/07/2024 4:12 PM EST) Pathologist [facility] High Sensitivity Troponin T 29(H) <23 ng/L 11/07/2024 5:28 PM [facility] Delta (Change) 3(H) <3 11/07/2024 5:28 PM [facility] Comment:Increased Blood (Plasma/Serum) 11/07/2024 4:12 PM EST 11/07/2024 5:01 PM EST Kayla Orona APRN LAB BLOOD ORDERABLES Performing Organization Address City/[facility]/[place] [address], [place] [address] * (ABNORMAL) Phosphorus (11/07/2024 4:12 PM EST) Pathologist [facility] Phosphorus 4.7(H) 2.7 - 4.5 mg/dL 11/07/2024 5:28 PM [facility] Blood (Plasma/Serum) 11/07/2024 4:12 PM EST 11/07/2024 5:01 PM EST Kayla Orona APRN LAB BLOOD ORDERABLES Performing Organization Address City/[facility]/[place] [address], [place] [address] * Magnesium (11/07/2024 4:12 PM EST) Magnesium 2.2 1.6 - 2.7 mg/dL 11/07/2024 5:28 PM [facility] Blood (Plasma/Serum) 11/07/2024 4:12 PM EST 11/07/2024 5:01 PM EST Kayla Orona APRN LAB BLOOD ORDERABLES [address] [address], [place] [address] * (ABNORMAL) Basic Metabolic Panel (11/07/2024 4:12 PM EST) Glucose 183(H) 65 - 99 mg/dL 11/07/2024 5:28 PM [facility] Comment:Fasting: <100 mg/dL, Non-Fasting: <200 mg/dL (ADA 2005) Blood Urea Nitrogen (BUN) 47(H) 8 - 21 mg/dL 11/07/2024 5:28 PM [facility] Creatinine 1.6(H) 0.5 - 1.3 mg/dL 11/07/2024 5:28 PM [facility] eGFR 48(L) >59 11/07/2024 5:28 PM [facility] Comment:CKD-EPI (2020) in mL /min/1.73 sq meters. Sodium 131(L) 136 - 145 mmol/L 11/07/2024 5:28 PM [facility] Potassium 3.7 3.4 - 5.3 mmol/L 11/07/2024 5:28 PM [facility] Chloride 98 98 - 107 mmol/L 11/07/2024 5:28 PM [facility] CO2 21(L) 22 - 33 mmol/L 11/07/2024 5:28 PM [facility] Anion Gap 12 7 - 17 11/07/2024 5:28 PM [facility] Calcium 8.1(L) 8.7 - 10.5 mg/dL 11/07/2024 5:28 PM [facility] BUN/Creatinine Ratio 29(H) 10.0 - 25.0 Ratio 11/07/2024 5:28 PM EST [facility] Blood (Plasma/Serum) 11/07/2024 4:12 PM EST 11/07/2024 5:01 PM EST Kayla Orona APRN LAB BLOOD ORDERABLES Performing Organization Address [facility]/[place] [address], [place] [address] * (ABNORMAL) POCT Glucose, Fingerstick (11/07/2024 3:53 PM EST) POC Glucose 179(H) 65 - 99 mg/dL 11/07/2024 3:58 PM EST Blood specimen / Unknown 11/07/2024 3:53 PM EST 11/07/2024 3:58 PM EST Dallas Camejo MD POINT OF CARE TEST O RDERABLES [facility] See Below * ECG 12 lead (11/07/2024 2:58 PM EST) Systolic BP 116 mmHg EKG [facility] Diastolic BP 57 mmHg EKG [facility] Ventricular rate 62 BPM EKG [facility] Atrial rate 55 BPM EKG [facility] QRS duration 168 ms EKG [facility] Q-T interval 506 ms EKG [facility] QTC calculation (Bazett) 513 ms EKG [facility] R axis 104 degrees EKG [facility] T axis -39 degrees EKG [facility] 11/07/2024 2:58 PM EST Narrative EKG [facility] - 11/07/2024 6:25 PM EST Ventricular-paced [...] Camejo MD ECG ORDERABLES Performing Organization Address City/[facility] Co de Phone Number EKG [facility] * BLOOD CULTURE Peripheral (11/07/2024 1:02 PM EST) Culture Sterile after 5 days 11/12/2024 7:50 AM EST [facility] Microbiology Peripheral blood specimen / Unknown 11/07/2024 1:02 PM EST 11/07/2024 1:23 PM EST Chris Taylor MD LAB AMB MICRO ORDERA BLES Performing Organization Address [facility] Co de Phone Number [facility] [address] * BLOOD CULTURE Peripheral (11/07/2024 12:57 PM EST) Culture Sterile after 5 days 11/12/2024 7:50 AM EST [facility] Microbiology Peripheral blood specimen / Unknown 11/07/2024 12:57 PM EST 11/07/2024 1:49 PM EST Chris Taylor MD LAB AMB MICRO ORDERA BLES Performing Organization Address [facility] de Phone Number [facility] [address] * (ABNORMAL) Blood Gas, Arterial (STAT) (11/07/2024 12:36 PM EST) pH, Arterial 7.38 7.35 - 7.45 11/07/2024 1:02 PM EST [facility] pCO2, Arterial 36 32 - 45 mmHG 11/07/2024 1:02 PM EST [facility] pO2, Arterial 119(H) 75 - 95 mmHG 11/07/2024 1:02 PM EST [facility] CO2, Total 22 22 - 28 mmol/L 11/07/2024 1:02 PM EST [facility] Respiratory Info OTHER 11/07/19 12:36 PM EST Base Deficiency 3.5 mmol/L 1:02 PM EST [facility] Comment:Reference Range: Neg ative 2 to Positive 3 Blood Blood specimen / Unknown 11/07/2024 12:36 PM EST 11/07/2024 12:50 PM EST Kayla Orona APRN LAB BLOOD ORDERABLES Performing Organization Address [facility]/[place] [address], [place] [address] * (ABNORMAL) POCT Glucose, Fingerstick (11/07/2024 12:29 PM EST) POC Glucose 213(H) 65 - 99 mg/dL [...] to prior. Interpreted by: ??Roberto Tolbert MD Form Setter Helper I personally reviewed the images and the [...] to prior. Interpreted by: Roberto Tolbert MD Form Setter Helper I personally reviewed the images and the resident's preliminary report and AGREE with the report as it is now presented (RADPAL1). Juaquin Kern MD IMG DIAGNOSTIC SOC[place] GING ORDERABLES * (ABNORMAL) High Sensitivity Troponin T (11/07/2024 8:13 AM EST) [facility] High Sensitivity Troponin T 26(H) <23 ng/L 11/07/2024 12:53 PM EST [facility] Delta (Change) NO PREVIOUS RESULT <3 11/07/2024 12:53 PM EST [facility] Plasma/Serum 11/07/2024 8:13 AM EST 11/07/2024 8:49 AM EST Juaquin Kern MD [place] [address], [place] [address] * (ABNORMAL) proBNP, N-terminal (11/07/2024 8:13 AM EST) [facility] proBNP, N-terminal 3,427(H) <125 pg/mL 11/07/2024 10:25 AM [facility] Plasma specimen / Unknown 11/07/2024 8:13 AM EST 11/07/2024 8:49 AM EST Juaquin Kern MD LAB BLOOD ORDERABL ES [address] [address], [address] [address] * (ABNORMAL) Complete Blood Count, WITHOUT Differential (routine) (11/07/2024 8:13 AM EST) White Blood Cell Count 12.4(H) 4.0 - 11.0 Thou/uL 11/07/2024 9:05 AM [facility] Platelet Count 430 150 - 450 Thou/uL 11/07/2024 9:05 AM [facility] Hemoglobin 8.9(L) 13.0 - 17.7 g/dL 11/07/2024 9:05 AM [facility] Hematocrit 28.9(L) 39.0 - 54.0 % 11/07/2024 9:05 AM [facility] Red Blood Cell Count 3.16(L) 4.50 - 6.20 Mil/uL 11/07/2024 9:05 AM [facility] MCV 92 80 - 100 fL 11/07/2024 9:05 AM [facility] MCH 28.2 27.0 - 31.0 pg 11/07/2024 9:05 AM [facility] MCHC 30.8 30.0 - 36.0 g/dL 11/07/2024 9:05 AM [facility] RDW 16.7(H) 11.5 - 14.5 % 11/07/2024 9:05 AM [facility] MPV 9.6 7.5 - 12.5 fL 11/07/2024 9:05 AM [facility] nRBC 0.2(H) 0.0 - 0.1 /100 WBC 11/07/2024 9:05 AM [facility] nRBC, Absolute 0.03(H) 0.00 - 0.02 Thou/uL 11/07/2024 9:05 AM [facility] Blood Blood specimen / Unknown 11/07/2024 8:13 AM EST 11/07/2024 8:49 AM EST Juaquin Kern MD LAB BLOOD ORDERABL ES Performing Organization Address [facility]/[place] [address], [place] [address] * MAGNESIUM (11/07/2024 8:13 AM EST) Magnesium 2.3 1.6 - 2.7 mg/dL 11/07/2024 9:26 AM [facility] Blood (Plasma/Serum) 11/07/2024 8:13 AM EST 11/07/2024 8:49 AM EST Juaquin Kern MD LAB BLOOD ORDERABL ES Performing Organization Address [facility] [place] [address], [place] [address] * PHOSPHORUS (11/07/2024 8:13 AM EST) Phosphorus 4.3 2.7 - 4.5 mg/dL 11/07/2024 9:26 AM [facility] Blood (Plasma/Serum) 11/07/2024 8:13 AM EST 11/07/2024 8:49 AM EST Juaquin Kern MD LAB BLOOD ORDERABL ES Performing Organization Address [facility] [place] [address], [place] [address] * (ABNORMAL) Comprehensive Metabolic Panel (11/07/2024 8:13 AM EST) Glucose 188(H) 65 - 99 mg/dL 11/07/2024 9:26 AM [facility] Comment:Fasting: <100 mg/dL, Non-Fasting: <200 mg/dL (ADA 2005) Blood Urea Nitrogen (BUN) 47(H) 8 - 21 mg/dL 11/07/2024 9:26 AM [facility] Creatinine 1.5(H) 0.5 - 1.3 mg/dL 11/07/2024 9:26 AM [facility] eGFR 52(L) >59 11/07/2024 9:26 AM [facility] Comment:CKD-EPI (2020) in mL /min/1.73 sq meters. Sodium 129(L) 136 - 145 mmol/L 11/07/2024 9:26 AM [facility] Potassium 3.9 3.4 - 5.3 mmol/L 11/07/2024 9:26 AM [facility] Chloride 94(L) 98 - 107 mmol/L 11/07/2024 9:26 AM [facility] CO2 22 22 - 33 mmol/L 11/07/2024 9:26 AM [facility] Calcium 8.3(L) 8.7 - 10.5 mg/dL 11/07/2024 9:26 AM [facility] Alkaline Phosphatase 220(H) 45 - 128 U/L 11/07/2024 9:26 AM [facility] Aspartate Aminotrans (AST) 28 10 - 55 U/L 11/07/2024 9:26 AM [facility] Alanine Aminotrans (ALT) 29 10 - 55 U/L 11/07/2024 9:26 AM [facility] Bilirubin, Total 0.2 0.2 - 1.0 mg/dL 11/07/2024 9:26 AM [facility] Protein, Total 6.1(L) 6.3 - 8.3 g/dL 11/07/2024 9:26 AM [facility] Albumin 2.6(L) 3.4 - 4.8 g/dL 11/07/2024 9:26 AM [facility] BUN/Creatinine Ratio 31(H) 10.0 - 25.0 Ratio 11/07/2024 9:26 AM [facility] Globulin 3.5 1.5 - 3.9 g/dL 11/07/2024 9:26 AM [facility] Albumin/Globulin Ratio 0.7(L) 1.0 - 3.0 Ratio 11/07/2024 9:26 AM [facility] Anion Gap 13 7 - 17 11/07/2024 9:26 AM EST [facility] Blood (Plasma/Serum) 11/07/2024 8:13 AM EST 11/07/2024 8:49 AM EST Juaquin Kern MD LAB BLOOD ORDERABL ES Performing Organization Address [facility] Co de Phone Number [address] [address], [address] [address] * (ABNORMAL) POCT Glucose, Fingerstick (11/07/2024 7:33 AM EST) POC Glucose 191(H) 65 - 99 mg/dL 11/07/2024 7:36 AM EST Blood specimen / Unknown 11/07/2024 7:33 AM EST 11/07/2024 7:36 AM EST Dallas Camejo MD POINT OF CARE TEST O RDERABLES [facility] See Below * (ABNORMAL) POCT Glucose, [...] TEST O RDERALUCILLE Performing Organization Address [facility] Phone Number [facility] See Below * (ABNORMAL) POCT Glucose, Fingerstick (11/06/2024 5:24 PM EST) POC Glucose 193(H) 65 - 99 mg/dL 11/06/2024 5:29 PM EST Blood specimen / Unknown 11/06/2024 5:24 PM EST 11/06/2024 5:29 PM EST Dallas Camejo MD POINT OF CARE TEST O RDERALUCILLE Performing Organization Address [facility] Phone Number [facility] See Below * (ABNORMAL) POCT Glucose, Fingerstick (11/06/2024 2:45 PM EST) POC Glucose 217(H) 65 - 99 mg/dL 11/06/2024 2:46 PM EST Blood specimen / Unknown 11/06/2024 2:45 PM EST 11/06/2024 2:46 PM EST Dallas Camejo MD POINT OF CARE TEST O RDERALUCILLE Performing Organization Address [facility] Number [facility] See Below * (ABNORMAL) POCT Glucose, Fingerstick (11/06/2024 12:10 PM EST) POC Glucose 229(H) 65 - 99 mg/dL 11/06/2024 2:24 PM EST Blood specimen / Unknown 11/06/2024 12:10 PM EST 11/06/2024 2:24 PM EST Dallas Camejo MD POINT OF CARE TEST O RDERALUCILLE Performing Organization Address [facility] Phone Number [facility] See Below * (ABNORMAL) POCT Glucose, Fingerstick (11/06/2024 7:51 AM EST) POC Glucose 210(H) 65 - 99 mg/dL 11/06/2024 8:43 AM EST Blood specimen / Unknown 11/06/2024 7:51 AM EST 11/06/2024 8:43 AM EST Dallas Camejo MD POINT OF CARE TEST O RDERABLES [facility]PITAL LAB See Below * (ABNORMAL) Complete Blood Count WITH Differential - Early AM (11/06/2024 4:58 AM EST) White Blood Cell Count 11.9(H) 4.0 - 11.0 Thou/uL 11/06/2024 5:26 AM [facility] Platelet Count 346 150 - 450 Thou/uL 11/06/2024 5:26 AM [facility] Hemoglobin 8.7(L) 13.0 - 17.7 g/dL 11/06/2024 5:26 AM [facility] Hematocrit 27.9(L) 39.0 - 54.0 % 11/06/2024 5:26 AM [facility] Red Blood Cell Count 3.05(L) 4.50 - 6.20 Mil/uL 11/06/2024 5:26 AM [facility] MCV 92 80 - 100 fL 11/06/2024 5:26 AM [facility] MCH 28.5 27.0 - 31.0 pg 11/06/2024 5:26 AM [facility] MCHC 31.2 30.0 - 36.0 g/dL 11/06/2024 5:26 AM [facility] RDW 16.4(H) 11.5 - 14.5 % 11/06/2024 5:26 AM [facility] MPV 9.5 7.5 - 12.5 fL 11/06/2024 5:26 AM [facility] Neutrophils Auto 88.8 % 11/06/19 5:26 AM [facility] Immature Granulocytes 1.1 % 11/06/2024 5:26 AM [facility] Lymphocytes Auto 3.4 % 11/06/19 5:26 AM [facility] Monocytes Auto 6.6 % 11/06/2024 5:26 AM [facility] Eosinophils Auto 0.0 % 11/06/19 5:26 AM [facility] Basophils Auto 0.1 % 11/06/2024 5:26 AM [facility] Abs Neutrophils Auto 10.57(H) 2.00 - 7.50 Thou/uL 11/06/2024 5:26 AM [facility] Abs Immature Granulocytes 0.13(H) 0.00 - 0.10 Thou/uL 11/06/2024 5:26 AM [facility] Abs Lymphocytes Auto 0.41(L) 1.50 - 4.50 Thou/uL 11/06/2024 5:26 AM [facility] Abs Monocytes Auto 0.79 0.20 - 1.50 Thou/uL 11/06/2024 5:26 AM [facility] Abs Eosinophils Auto 0.00 0.00 - 0.70 Thou/uL 11/06/2024 5:26 AM [facility] Abs Basophils Auto 0.01 0.00 - 0.20 Thou/uL 11/06/2024 5:26 AM [facility] Blood Blood specimen / Unknown 11/06/2024 4:58 AM EST 11/06/2024 5:15 AM EST Renea PATTON [place] [address], [place] [address] * (ABNORMAL) PHOSPHORUS (11/06/2024 4:58 AM EST) Phosphorus 5.1(H) 2.7 - 4.5 mg/dL 11/06/2024 5:46 AM [facility] Blood (Plasma/Serum) 11/06/2024 4:58 AM EST 11/06/2024 5:15 AM EST Renea PATTON [place] [address], [place] [address] * MAGNESIUM (11/06/2024 4:58 AM EST) Magnesium 2.5 1.6 - 2.7 mg/dL 11/06/2024 5:46 AM [facility] Blood (Plasma/Serum) 11/06/2024 4:58 AM EST 11/06/2024 5:15 AM EST Renea PATTON [place] [address], [address] [address] * (ABNORMAL) Comprehensive Metabolic Panel (11/06/2024 4:58 AM EST) Glucose 194(H) 65 - 99 mg/dL 11/06/2024 5:46 AM [facility] Comment:Fasting: <100 mg/dL, Non-Fasting: <200 mg/dL (ADA 2004) Blood Urea Nitrogen (BUN) 48(H) 8 - 21 mg/dL 11/06/2024 5:46 AM [facility] Creatinine 1.7(H) 0.5 - 1.3 mg/dL 11/06/2024 5:46 AM [facility] eGFR 45(L) >59 11/06/2024 5:46 AM [facility] Comment:CKD-EPI (2020) in mL /min/1.73 sq meters. Sodium 131(L) 136 - 145 mmol/L 11/06/2024 5:46 AM [facility] Potassium 3.8 3.4 - 5.3 mmol/L 11/06/2024 5:46 AM [facility] Chloride 99 98 - 107 mmol/L 11/06/2024 5:46 AM [facility] CO2 20(L) 22 - 33 mmol/L 11/06/2024 5:46 AM [facility] Calcium 7.8(L) 8.7 - 10.5 mg/dL 11/06/2024 5:46 AM [facility] Alkaline Phosphatase 270(H) 45 - 128 U/L 11/06/2024 5:46 AM [facility] Aspartate Aminotrans (AST) 50 10 - 55 U/L 11/06/2024 5:46 AM [facility] Alanine Aminotrans (ALT) 31 10 - 55 U/L 11/06/2024 5:46 AM [facility] Bilirubin, Total 0.2 0.2 - 1.0 mg/dL 11/06/2024 5:46 AM [facility] Protein, Total 5.7(L) 6.3 - 8.3 g/dL 11/06/2024 5:46 AM [facility] Albumin 2.4(L) 3.4 - 4.8 g/dL 11/06/2024 5:46 AM [facility] BUN/Creatinine Ratio 28(H) 10.0 - 25.0 Ratio 11/06/2024 5:46 AM [facility] Globulin 3.3 1.5 - 3.9 g/dL 11/06/2024 5:46 AM [facility] Albumin/Globulin Ratio 0.7(L) 1.0 - 3.0 Ratio 11/06/2024 5:46 AM [facility] Anion Gap 12 7 - 17 11/06/2024 5:46 AM [facility] Blood (Plasma/Serum) 11/06/2024 4:58 AM EST 11/06/2024 5:15 AM EST Renea PATTON [place] [address], [place] [address] * BLOOD CULTURE Peripheral (11/06/2024 4:58 AM EST) Culture Sterile after 5 days 11/11/2024 8:20 AM EST [facility] Microbiology Peripheral blood specimen / Unknown 11/06/2024 4:58 AM EST 11/06/2024 5:36 AM EST Renea PATTON LAB AMB MICRO ORDERA BLES [facility] [address] [place] [address], * BLOOD CULTURE Peripheral (11/06/2024 4:58 AM EST) Culture Sterile after 5 days 11/11/2024 8:20 AM EST [facility] Microbiology Peripheral blood specimen / Unknown 11/06/2024 4:58 AM EST 11/06/2024 5:36 AM EST Renea Breen PA LAB AMB MICRO ORDERA BLES [facility] [address] * (ABNORMAL) POCT Glucose, Fingerstick (11/06/2024 1:17 [...] MD POINT OF CARE TEST O [facility]DERALUCILLE [facility] See Below * (ABNORMAL) POCT Glucose, Fingerstick (11/05/2024 3:37 PM EST) POC Glucose 138(H) 65 - 99 mg/dL 11/05/2024 3:38 PM EST Blood specimen / Unknown 11/05/2024 3:37 PM EST 11/05/2024 3:38 PM EST Dallas Camejo MD POINT OF CARE TEST O RDERALUCILLE Performing Organization Address City/[facility]/ZIP Co de Phone Number HOSPITAL LAB See Below * Pathology (11/05/2024 2:11 PM EST) Report [facility] [id number] ?? CLIA ID [id number] [address] [place] [address] ??[phone] Surgical Pathology Report PATIENT NAME: BLAS GENAO [facility] REC NUMBER: [id number] (AGE): 1960 (Age: 63) SPECIMEN NUMBER: [id number] DATE OBTAINED: 11/05/2024 DIAGNOSIS LEFT LOWER EXTREMITY, BELOW KNEE AMPUTATION: ??SEVERE PERIPHERAL ARTERIOSCLEROSIS WITH CALCIFICATION, GANGRENOUS ULCER OF FOOT WITH SEVERE ACUTE OSTEOMYELITIS. NEGATIVE AMPUTATION MARGIN. /11/16/2024 Electronically Signed Out ? SENA SHABAZZ MD COMMENT [id number], [id number] Clinical Information and History: Acute osteomyelitis of [...] other masses or lesions are grossly identified. ??Application Architect Manager sections are submitted in A1 - ?? [...] tibial artery margin (inked blue), en face [facility] Bone with Tissue Structure of left lower leg / Unknown 11/05/2024 2:11 PM EST Dallas Camejo MD PATHOLOGY/CYTOLOGY O RDGHANSHYAM Performing Organization Address [facility] Co de Phone Number [facility] See Below * (ABNORMAL) POCT Glucose, Fingerstick (11/05/2024 12:54 PM EST) POC Glucose 128(H) 65 - 99 mg/dL 11/05/2024 2:08 PM EST Blood specimen / Unknown 11/05/2024 12:54 PM EST 11/05/2024 2:08 PM EST Dallas Camejo MD POINT OF CARE TEST O RDGHANSHYAM Performing Organization Address [facility] Phone Number [facility] See Below * (ABNORMAL) PROTIME-INR (11/05/2024 7:12 AM EST) Anticoagulant Information not given 11/05/2024 7:47 AM [facility] Prothrombin Time (PT) 15.3(H) 10.0 - 13.5 seconds 11/05/2024 8:07 AM [facility] INR 1.3 11/05/2024 8:07 AM [facility] Comment:INR Therapeutic Rang es: Standard dose anticoagulant 2.0 to 3.0, High dose anticoagulant 2.5-3.5. Plasma specimen / Unknown 11/05/2024 7:12 AM EST 11/05/2024 7:46 AM EST Chris Taylor MD LAB BLOOD ORDERABLES Performing Organization Address [facility] [place] [address], [place] [address] * (ABNORMAL) COMPLETE BLOOD COUNT, WITHOUT DIFFERENTIAL (11/05/2024 7:12 AM EST) White Blood Cell Count 15.9(H) 4.0 - 11.0 Thou/uL 11/05/2024 7:59 AM [facility] Platelet Count 353 150 - 450 Thou/uL 11/05/2024 7:59 AM [facility] Hemoglobin 9.1(L) 13.0 - 17.7 g/dL 11/05/2024 7:59 AM [facility] Hematocrit 28.3(L) 39.0 - 54.0 % 11/05/2024 7:59 AM [facility] Red Blood Cell Count 3.12(L) 4.50 - 6.20 Mil/uL 11/05/2024 7:59 AM [facility] MCV 91 80 - 100 fL 11/05/2024 7:59 AM [facility] MCH 29.2 27.0 - 31.0 pg 11/05/2024 7:59 AM [facility] MCHC 32.2 30.0 - 36.0 g/dL 11/05/2024 7:59 AM [facility] RDW 16.8(H) 11.5 - 14.5 % 11/05/2024 7:59 AM [facility] MPV 9.8 7.5 - 12.5 fL 11/05/2024 7:59 AM [facility] Blood specimen / Unknown 11/05/2024 7:12 AM EST 11/05/2024 7:46 AM EST Chris Taylor MD LAB BLOOD ORDERABLES Performing Organization Address City/State/[facility] [place] [address], [place] [address] * (ABNORMAL) BASIC METABOLIC PANEL (11/05/2024 7:12 AM EST) [facility] Glucose 146(H) 65 - 99 mg/dL 11/05/2024 8:18 AM [facility] Comment:Fasting: <100 mg/dL, Non-Fasting: <200 mg/dL (ADA 2005) Blood Urea Nitrogen (BUN) 47(H) 8 - 21 mg/dL 11/05/2024 8:18 AM [facility] Creatinine 2.0(H) 0.5 - 1.3 mg/dL 11/05/2024 8:18 AM [facility] eGFR 37(L) >59 11/05/2024 8:18 AM [facility] Comment:CKD-EPI (2020) in mL /min/1.73 sq meters. Sodium 130(L) 136 - 145 mmol/L 11/05/2024 8:18 AM [facility] Potassium 3.4 3.4 - 5.3 mmol/L 11/05/2024 8:18 AM [facility] Chloride 96(L) 98 - 107 mmol/L 11/05/2024 8:18 AM [facility] CO2 19(L) 22 - 33 mmol/L 11/05/2024 8:18 AM [facility] Anion Gap 15 7 - 17 11/05/2024 8:18 AM [facility] Calcium 7.9(L) 8.7 - 10.5 mg/dL 11/05/2024 8:18 AM [facility] BUN/Creatinine Ratio 24 10.0 - 25.0 Ratio 11/05/2024 8:18 AM [facility] Plasma/Serum 11/05/2024 7:12 AM EST 11/05/2024 7:46 AM EST Chris Taylor MD [place] [address], [place] [address] * (ABNORMAL) Hepatic Function Panel (AM) (11/05/2024 7:12 AM EST) Alkaline Phosphatase 153(H) 45 - 128 U/L 11/05/2024 8:18 AM [facility] Aspartate Aminotrans (AST) 26 10 - 55 U/L 11/05/2024 8:18 AM [facility] Alanine Aminotrans (ALT) 23 10 - 55 U/L 11/05/2024 8:18 AM [facility] Bilirubin, Total 0.3 0.2 - 1.0 mg/dL 11/05/2024 8:18 AM [facility] Protein, Total 5.9(L) 6.3 - 8.3 g/dL 11/05/2024 8:18 AM [facility] Albumin 2.5(L) 3.4 - 4.8 g/dL 11/05/2024 8:18 AM [facility] Bilirubin, Direct 0.2 0 - 0.2 mg/dL 11/05/2024 8:18 AM [facility] Globulin 3.4 1.5 - 3.9 g/dL 11/05/2024 8:18 AM [facility] Albumin/Globulin Ratio 0.7(L) 1.0 - 3.0 Ratio 11/05/2024 8:18 AM [facility] Blood (Plasma/Serum) 11/05/2024 7:12 AM EST 11/05/2024 7:46 AM EST Chris Taylor MD LAB BLOOD ORDERABLES Performing Organization Address City/[facility]/[place] [address], [place] [address] * Creatine Kinase, Reflex to CKMB (11/05/2024 7:12 AM EST) Creatine Kinase (CK) 49 24 - 204 U/L 11/05/2024 8:18 AM EST [facility] Blood (Plasma/Serum) 11/05/2024 7:12 AM EST 11/05/2024 7:46 AM EST Chris Taylor MD [place] [address], [place] [address] * (ABNORMAL) POCT Glucose, Fingerstick (11/05/2024 6:26 [...] TEST O JOSEPH Performing Organization Address [facility] Co de Phone Number HOSPITAL LAB See Below * XR Chest 1 view-Portable (STAT) (11/04/2024 11:17 PM EST) Anatomical Region Laterality Modality Chest Computed Radiogr aphy 11/04/2024 10:5 4 PM EST Impressions 11/05/2024 5:04 AM EST Bilateral reticulonodular opacities concerning for interstitial edema. Superimposed atypical infection cannot be ruled out. Interpreted by: ??David Vogt DO Form Setter Helper I personally reviewed the images and the [...] ruled out. Interpreted by: David Vogt DO Form Setter Helper I personally reviewed the images and the resident's preliminary report and AGREE with the report as it is now presented ([id number]). Nate Don PA-C IMG DIAGNOSTIC IMAGING ORDERABLES * (ABNORMAL) POCT Glucose, Fingerstick (11/04/2024 8:52 PM EST) POC Glucose 258(H) 65 - 99 mg/dL 11/04/2024 9:36 PM EST Blood specimen / Unknown 11/04/2024 8:52 PM EST 11/04/2024 9:36 PM EST Dallas Camejo MD POINT OF CARE TEST O JOSEPH Performing Organization Address [facility] LAB See Below * (ABNORMAL) POCT Glucose, Fingerstick (11/04/2024 5:00 PM EST) POC Glucose 172(H) 65 - 99 mg/dL 11/04/2024 5:22 PM EST Blood specimen / Unknown 11/04/2024 5:00 PM EST 11/04/2024 5:22 PM EST Dallas Camejo MD POINT OF CARE TEST O JOSEPH Performing Organization Address [facility] LAB See Below * (ABNORMAL) POCT Glucose, Fingerstick (11/04/2024 12:43 PM EST) POC Glucose 167(H) 65 - 99 mg/dL 11/04/2024 12:48 PM EST Blood specimen / Unknown 11/04/2024 12:43 PM EST 11/04/2024 12:48 PM EST Dallas Camejo MD POINT OF CARE TEST O JOSEPH Performing Organization Address [facility]/ZIP Co de Phone Number HOSPITAL LAB See Below * (ABNORMAL) Complete Blood Count WITHOUT Differential - Early AM (11/04/2024 11:19 AM EST) White Blood Cell Count 13.4(H) 4.0 - 11.0 Thou/uL 11/04/2024 11:38 [facility] Platelet Count 326 150 - 450 Thou/uL 11/04/2024 11:38 [facility] Hemoglobin 8.7(L) 13.0 - 17.7 g/dL 11/04/2024 11:38 [facility] Hematocrit 28.0(L) 39.0 - 54.0 % 11/04/2024 11:38 [facility] Red Blood Cell Count 3.05(L) 4.50 - 6.20 Mil/uL 11/04/2024 11:38 [facility] MCV 92 80 - 100 fL 11/04/2024 11:38 [facility] MCH 28.5 27.0 - 31.0 pg 11/04/2024 11:38 [facility] MCHC 31.1 30.0 - 36.0 g/dL 11/04/2024 11:38 [facility] RDW 16.6(H) 11.5 - 14.5 % 11/04/2024 11:38 [facility] MPV 9.4 7.5 - 12.5 fL 11/04/2024 11:38 [facility] Blood Blood specimen / Unknown 11/04/2024 11:19 AM EST 11/04/2024 11:28 AM EST Renea PATTON LAB BLOOD ORDERABLES [address] [address], [address] [address] * (ABNORMAL) BLOOD CULTURE Peripheral (11/04/2024 11:03 AM EST) Gram stain suggestive of Gram positive cocci in clusters 11/07/2024 10:29 [facility] Culture Methicillin Resistant Staph aureus (MRSA) Aerobic bottle positive. Susceptibility of the same isolate identification, from the same apparent body site is only performed once per 5 calendar days. ?See susceptibilities reported on specimen collected 11/02/2024 (A) 11/08/2024 12:21 PM EST [facility] Microbiology Peripheral blood specimen / Unknown 11/04/2024 11:03 AM EST 11/04/2024 12:35 PM EST Chris Taylor MD LAB AMB MICRO ORDERA BLES Performing Organization Address [facility] de Phone Number [facility] [address] [place] [address], * (ABNORMAL) BLOOD CULTURE Peripheral (11/04/2024 11:03 AM EST) Gram stain suggestive of Gram positive cocci in clusters 11/07/2024 1:43 PM EST [facility] Culture Methicillin Resistant Staph aureus (MRSA) Aerobic bottle positive. Susceptibility of the same isolate identification, from the same apparent body site is only performed once per 5 calendar days. ?See susceptibilities reported on specimen collected 11/02/2024 (A) 11/08/2024 12:17 PM EST [facility] Microbiology Peripheral blood specimen / Unknown 11/04/2024 11:03 AM EST 11/04/2024 12:35 PM EST Chris Taylor MD LAB AMB MICRO ORDERA BLES Performing Organization Address [facility] de Phone Number [facility] [address] [place] [address], * (ABNORMAL) Basic Metabolic Panel (Routine) (11/04/2024 10:50 AM EST) Glucose 184(H) 65 - 99 mg/dL 11/04/2024 11:53 [facility] Comment:Fasting: <100 mg/dL, Non-Fasting: <200 mg/dL (ADA 2005) Blood Urea Nitrogen (BUN) 48(H) 8 - 21 mg/dL 11/04/2024 11:53 [facility] Creatinine 2.0(H) 0.5 - 1.3 mg/dL 11/04/2024 11:53 [facility] eGFR 37(L) >59 11/04/2024 11:53 [facility] Comment:CKD-EPI (2020) in mL /min/1.73 sq meters. Sodium 130(L) 136 - 145 mmol/L 11/04/2024 11:53 [facility] Potassium 3.7 3.4 - 5.3 mmol/L 11/04/2024 11:53 [facility] Chloride 95(L) 98 - 107 mmol/L 11/04/2024 11:53 [facility] CO2 21(L) 22 - 33 mmol/L 11/04/2024 11:53 [facility] Anion Gap 14 7 - 17 11/04/2024 11:53 [facility] Calcium 7.7(L) 8.7 - 10.5 mg/dL 11/04/2024 11:53 [facility] BUN/Creatinine Ratio 24 10.0 - 25.0 Ratio 11/04/2024 11:53 [facility] Blood (Plasma/Serum) 11/04/2024 10:50 AM EST 11/04/2024 11:28 AM EST Juaquin Kern MD [place] [address], [place] [address] * ECHOCARDIOGRAM COMPREHENSIVE (11/04/2024 9:05 AM EST) [...] ?Compared to previous outside study report from [facility] on 08/05/2024, Mitral and tricuspid regurgitation were [...] Compared to previous outside study report from [facility] on 08/05/2024, Mitral and tricuspid regurgitation were not previously reported. Ena Mtz MD CV ECHO ORDERABL ES * (ABNORMAL) POCT Glucose, Fingerstick (11/04/2024 7:26 AM EST) POC Glucose 141(H) 65 - 99 mg/dL 11/04/2024 7:30 AM EST Blood specimen / Unknown 11/04/2024 7:26 AM EST 11/04/2024 7:30 AM EST Dallas Camejo MD POINT OF CARE TEST O JOSEPH Performing Organization Address [facility] Phone Number [facility] See Below * Prepare RBC's:Prepare in: Units; Number of Units: 2; Transfusion Indications: Hemoglobin greater than 7 gm/dl or HCT greater than 21% but Acute blood loss greater than 500 ml and symptoms not corrected by volume (11/04/2024 6:49 AM EST) Units Ordered 2 11/04/2024 6:53 AM EST Serum specimen / Unknown 11/04/2024 6:49 AM EST 11/04/2024 6:58 AM EST Marialuisa PATTON BLOOD BANK PRODUCT O RDERALUCILLE Performing Organization Address [facility] Phone Number [facility] See Below * (ABNORMAL) POCT Glucose, Fingerstick (11/03/2024 9:25 PM EST) POC Glucose 229(H) 65 - 99 mg/dL 11/03/2024 9:26 PM EST Blood specimen / Unknown 11/03/2024 9:25 PM EST 11/03/2024 9:26 PM EST Dallas Camejo MD POINT OF CARE TEST O RDERALUCILLE Performing Organization Address [facility] Phone Number [facility] See Below * (ABNORMAL) POCT Glucose, Fingerstick (11/03/2024 5:50 PM EST) POC Glucose 158(H) 65 - 99 mg/dL 11/03/2024 6:19 PM EST Blood specimen / Unknown 11/03/2024 5:50 PM EST 11/03/2024 6:19 PM EST Dallas Camejo MD POINT OF CARE TEST O RDERALUCILLE Performing Organization Address [facility] Phone Number [facility] See Below * (ABNORMAL) POCT Glucose, Fingerstick (11/03/2024 11:43 AM EST) POC Glucose 153(H) 65 - 99 mg/dL 11/03/2024 11:48 AM EST Blood specimen / Unknown 11/03/2024 11:43 AM EST 11/03/2024 11:48 AM EST Dallas Camejo MD POINT OF CARE TEST O JOSEPH Performing Organization Address [facility]/ZIP Co de Phone Number HOSPITAL [facility] See Below * Creatine Kinase (CK) (11/03/2024 10:52 AM EST) Pathologist [facility] Creatine Kinase (CK) 61 24 - 204 U/L 11/03/2024 11:37 AM EST [facility] Blood (Plasma/Serum) 11/03/2024 10:52 AM EST 11/03/2024 11:10 AM EST Ena Mtz MD LAB BLOOD ORDERA BLES Performing Organization Address [facility] [place] [address], [place] [address] * (ABNORMAL) POCT Glucose, Fingerstick (11/03/2024 7:56 AM EST) Pathologist [facility] POC Glucose 165(H) 65 - 99 mg/dL 11/03/2024 8:04 AM EST Blood specimen / Unknown 11/03/2024 7:56 AM EST 11/03/2024 8:04 AM EST Dallas Camejo MD POINT OF CARE TEST O JOSEPH Performing Organization Address [facility] Co de Phone Number [facility]OS[facility]ITAL [facility] See Below * MRSA PCR Screen, Qualitative (11/03/2024 3:24 AM EST) Pathologist [facility] MRSA Result Not Detected Not Detected 7:00 AM EST [facility] Comment:Performed by the Xpe rt MRSA NxG Assay X-Specimen 12 Specimen from nose / Unknown 11/03/2024 3:24 AM EST 11/03/2024 5:23 AM EST Kenzie PATTON MICROBIOLOGY - GENE RAL ORDERABLES [address] [address], [address] [address] * ECG 12 lead (STAT) (11/02/2024 9:34 PM EST) Ventricular rate 70 BPM EKG [facility] Atrial rate 70 BPM EKG [facility] P-R interval 272 ms EKG [facility] QRS duration 202 ms EKG [facility] Q-T interval 510 ms EKG [facility] QTC calculation (Bazett) 551 ms EKG [facility] P axis 81 degrees EKG [facility] R axis 29 degrees EKG [facility] T axis 132 degrees EKG [facility] 11/02/2024 9:34 PM EST Narrative EKG [facility] - 11/03/2024 4:30 PM EST Atrial-sensed [...] 11/03/2024 4:30:25 PM Kenzie PATTON ECG ORDERABLES [facility] * (ABNORMAL) POCT Glucose, Fingerstick (11/02/2024 9:19 PM EST) POC Glucose 163(H) 65 - 99 mg/dL 11/02/2024 9:20 PM EST Blood specimen / Unknown 11/02/2024 9:19 PM EST 11/02/2024 9:20 PM EST Dallas Camejo MD POINT OF CARE TEST O RDERABLES [facility] See Below * (ABNORMAL) Blood Culture ID PCR Panel (11/02/2024 8:00 PM EST) [facility] BC ID PCR Result Summary Enterococcus faecalis Vancomycin resistance gene detected by molecular method. Please refer to detailed susceptibility results when available and suggest consultation with Infectious Diseases for management. 11/03/2024 6:06 [facility] BC ID PCR Result Summary Enterococcus faecium Vancomycin resistance gene detected by molecular method. Please refer to detailed susceptibility results when available and suggest consultation with Infectious Diseases for management. 11/03/2024 6:06 PM [facility] BC ID PCR Result Summary Methicillin Resistant Staph aureus (MRSA) 11/03/2024 6:06 PM [facility] Methicillin resistance gene mecA/C Detected(A) 11/03/2024 6:06 PM [facility] Vancomycin resistance genes Eugenia/B Detected(A) 11/03/2024 6:06 PM [facility] Enterococcus faecalis Detected(A) 11/03/2024 6:06 PM [facility] Enterococcus faecium Detected(A) 11/03/2024 6:06 PM [facility] Listeria monocytogenes Not Detected 11/03/2024 6:06 PM [facility] Staphylococcus Detected(A) 6:06 PM [facility] Staphylococcus aureus Detected(A) 11/03/2024 6:06 PM [facility] Staphylococcus epidermidis Not Detected 11/03/2024 6:06 PM [facility] Staphylococcus lugdunensis Not Detected 11/03/2024 6:06 PM [facility] Streptococcus Not Detected 6:06 PM [facility] Streptococcus agalactiae Not Detected 11/03/2024 6:06 [facility] Streptococcus pneumoniae Not Detected 11/03/2024 6:06 [facility] Streptococcus pyogenes Not Detected 11/03/2024 6:06 PM [facility] Acinetobacter calcoaceticus-bauma nnii complex Not Detected 11/03/2024 6:06 PM [facility] Bacteroides fragilis Not Detected 11/03/2024 6:06 PM [facility] Enterobacterales Not Detected 2024 6:06 PM [facility] Enterobacter cloacae complex Not Detected 11/03/2024 6:06 PM [facility] Escherichia coli Not Detected 2024 6:06 PM [facility] Klebsiella aerogenes Not Detected 11/03/2024 6:06 PM [facility] Klebsiella oxytoca Not Detected 01/2025 6:06 PM [facility] Klebsiella pneumoniae group Not Detected 11/03/2024 6:06 PM [facility] Proteus Not Detected 11/03/2024 6:06 PM [facility] Salmonella Not Detected 11/03/2024 6:06 PM [facility] Serratia marcescens Not Detected 01/2025 6:06 PM [facility] Haemophilus influenza Not Detected 11/03/2024 6:06 PM [facility] Neisseria meningitidis Not Detected 11/03/2024 6:06 PM [facility] Pseudomonas aeruginosa Not Detected 11/03/2024 6:06 PM [facility] Stenotrophomonas maltophilia Not Detected 11/03/2024 6:06 PM [facility] Fernanda albicans Not Detected 2024 6:06 PM [facility] Fernanda auris Not Detected 6:06 PM [facility] Fernanda glabrata Not Detected 2024 6:06 PM [facility] Fernanda krusei Not Detected 11/03/19 6:06 PM [facility] Fernanda parapsilosis Not Detected 11/03/2024 6:06 PM [facility] Cryptococcus neoformans/gattii Not Detected 11/03/2024 6:06 PM [facility] PCR ID Comment Antimicrobial resistance can occur via multiple mechanisms. A Not Detected result for antimicrobial resistance gene(s) does not indicate antimicrobial susceptibility. Subculturing is required for species identification and susceptibility testing of isolates. 11/03/2024 6:06 PM EST [facility] 11/02/2024 8:00 PM EST 11/02/2024 8:29 PM EST Kenzie PATTON MICROBIOLOGY - GENE RAL ORDERABLES [facility] [address] [place] [address], * (ABNORMAL) Erythrocyte Sedimentation Rate (ESR) (11/02/2024 8:00 PM EST) Erythrocyte Sediment Rate (ESR) 79(H) <20 MM/HR 11/02/2024 8:51 PM EST [facility] Blood specimen / Unknown 11/02/2024 8:00 PM EST 11/02/2024 8:22 PM EST Kenzie PATTON LAB BLOOD ORDERABLE S Performing Organization Address City/[facility]/[place] [address], [place] [address] * (ABNORMAL) C-REACTIVE PROTEIN (11/02/2024 8:00 PM EST) C-Reactive Protein 29.62(H) 0 - 0.49 mg/dL 11/03/2024 12:04 AM EST [facility] Plasma/Serum 11/02/2024 8:00 PM EST 11/02/2024 8:22 PM EST Kenzie PATTON [place] [address], [place] [address] * (ABNORMAL) BLOOD CULTURE Peripheral (11/02/2024 8:00 PM EST) Gram stain suggestive of Gram positive cocci 11/03/2024 3:55 PM EST [facility] Culture Methicillin Resistant Staph aureus (MRSA) Aerobic and Anaerobic bottle positive. Complete identification and susceptibility of the same isolate, if appropriate, performed on only one blood culture collection per day. (A) 11/06/2024 12:15 PM [facility] Culture Enterococcus faecalis Aerobic and Anaerobic bottle positive. Complete identification and susceptibility of the same isolate, if appropriate, performed on only one blood culture collection per day. (A) 11/06/2024 12:15 PM [facility] Microbiology Peripheral blood specimen / Unknown 11/02/2024 8:00 PM EST 11/02/2024 8:28 PM EST Kenzie PATTON LAB AMB MICRO ORDER JOSE [facility] [address] [place] [address], * (ABNORMAL) BLOOD CULTURE Peripheral (11/02/2024 8:00 PM EST) Gram stain suggestive of Gram positive cocci 11/03/2024 3:50 PM [facility] Culture Methicillin Resistant Staph aureus (MRSA) Aerobic and Anaerobic bottle positive. (A) 11/05/2024 1:52 PM [facility] Culture Enterococcus faecalis Aerobic and Anaerobic bottle positive. (A) 11/05/2024 1:52 PM [facility] Culture Enterococcus faecium Anaerobic bottle positive. (A) 11/05/2024 1:52 PM [facility] Microbiology Peripheral blood specimen / [...] Kenzie PATTON LAB AMB MICRO ORDER JOSE [facility] [address] [place] [address], * Vitamin D, 25-Hydroxy (11/02/2024 8:00 PM EST) Vitamin D, 25-Hydroxy 50 30 - 100 ng/mL 11/02/2024 9:10 PM EST [facility] Blood (Plasma/Serum) 11/02/2024 8:00 PM EST 11/02/2024 8:23 PM EST Kenzie PATTON LAB BLOOD ORDERABLE S Performing Organization Address City/[facility] [place] [address], [place] [address] * (ABNORMAL) TRANSFERRIN (11/02/2024 8:00 PM EST) Transferrin 178(L) 200 - 360 mg/dL 11/03/2024 12:04 AM EST [facility] Blood (Plasma/Serum) 11/02/2024 8:00 PM EST 11/02/2024 8:22 PM EST Kenzie PATTON LAB BLOOD ORDERABLE S Performing Organization Address City/[facility]/[place] [address], [place] [address] * (ABNORMAL) Prealbumin (11/02/2024 8:00 PM EST) Prealbumin 7(L) 20 - 40 mg/dL 11/03/2024 12:04 AM EST [facility] Blood (Plasma/Serum) 11/02/2024 8:00 PM EST 11/02/2024 8:22 PM EST Kenzie PATTON [place] [address], [place] [address] * (ABNORMAL) Albumin (11/02/2024 8:00 PM EST) [facility] Albumin 3.2(L) 3.4 - 4.8 g/dL 11/03/2024 12:04 [facility] Blood (Plasma/Serum) 11/02/2024 8:00 PM EST 11/02/2024 8:22 PM EST Kenzie PATTON LAB BLOOD ORDERABLE S Performing Organization Address City/[facility]/[place] [address], [place] [address] * (ABNORMAL) Protime-INR (Routine) (11/02/2024 8:00 PM EST) [facility] Anticoagulant APIXABAN (ELIQUIS) 11/02/2024 6:26 PM EST Prothrombin Time (PT) 14.7(H) 10.0 - 13.5 seconds 11/02/2024 9:05 PM [facility] INR 1.3 11/02/2024 9:05 PM [facility] Comment:INR Therapeutic Rang es: Standard dose anticoagulant 2.0 to 3.0, High dose anticoagulant 2.5-3.5. Blood Plasma specimen / Unknown 11/02/2024 8:00 PM EST 11/02/2024 8:22 PM EST Kenzie Mcknight Taylor PATTON [place] [address], [place] [address] * (ABNORMAL) Basic Metabolic Panel (STAT) (11/02/2024 8:00 PM EST) [facility] Glucose 171(H) 65 - 99 mg/dL 11/03/2024 12:04 AM [facility] Comment:Fasting: <100 mg/dL, Non-Fasting: <200 mg/dL (ADA 2004) Blood Urea Nitrogen (BUN) 41(H) 8 - 21 mg/dL 11/03/2024 12:04 AM [facility] Creatinine 2.0(H) 0.5 - 1.3 mg/dL 11/03/2024 12:04 AM [facility] eGFR 37(L) >59 11/03/2024 12:04 AM [facility] Comment:CKD-EPI (2020) in mL /min/1.73 sq meters. Sodium 130(L) 136 - 145 mmol/L 11/03/2024 12:04 AM [facility] Potassium 4.0 3.4 - 5.3 mmol/L 11/03/2024 12:04 [facility] Chloride 92(L) 98 - 107 mmol/L 11/03/2024 12:04 AM [facility] CO2 19(L) 22 - 33 mmol/L 11/03/2024 12:04 AM [facility] Anion Gap 19(H) 7 - 17 11/03/2024 12:04 AM [facility] Calcium 8.5(L) 8.7 - 10.5 mg/dL 11/03/2024 12:04 AM [facility] BUN/Creatinine Ratio 21 10.0 - 25.0 Ratio 11/03/2024 12:04 AM [facility] Blood (Plasma/Serum) 11/02/2024 8:00 PM EST 11/02/2024 8:22 PM EST Kenzie PATTON [place] [address], [address] [address] * (ABNORMAL) Complete Blood Count WITH Differential - STAT (11/02/2024 8:00 PM EST) White Blood Cell Count 14.3(H) 4.0 - 11.0 Thou/uL 11/02/2024 8:32 PM [facility] Platelet Count 395 150 - 450 Thou/uL 11/02/2024 8:32 PM [facility] Hemoglobin 9.3(L) 13.0 - 17.7 g/dL 11/02/2024 8:32 PM [facility] Hematocrit 29.3(L) 39.0 - 54.0 % 11/02/2024 8:32 PM [facility] Red Blood Cell Count 3.20(L) 4.50 - 6.20 Mil/uL 11/02/2024 8:32 PM [facility] MCV 92 80 - 100 fL 11/02/2024 8:32 PM [facility] MCH 29.1 27.0 - 31.0 pg 11/02/2024 8:32 PM [facility] MCHC 31.7 30.0 - 36.0 g/dL 11/02/2024 8:32 PM [facility] RDW 16.1(H) 11.5 - 14.5 % 11/02/2024 8:32 PM [facility] MPV 9.5 7.5 - 12.5 fL 11/02/2024 8:32 PM [facility] Neutrophils Auto 81.9 % 11/02/19 8:32 PM [facility] Immature Granulocytes 0.6 % 11/02/2024 8:32 PM [facility] Lymphocytes Auto 4.8 % 11/02/19 8:32 PM [facility] Monocytes Auto 12.2 % 11/02/2024 8:32 PM [facility] Eosinophils Auto 0.1 % 11/02/19 8:32 PM [facility] Basophils Auto 0.4 % 11/02/2024 8:32 PM [facility] Abs Neutrophils Auto 11.67(H) 2.00 - 7.50 Thou/uL 11/02/2024 8:32 PM [facility] Abs Immature Granulocytes 0.08 0.00 - 0.10 Thou/uL 11/02/2024 8:32 PM [facility] Abs Lymphocytes Auto 0.69(L) 1.50 - 4.50 Thou/uL 11/02/2024 8:32 PM [facility] Abs Monocytes Auto 1.74(H) 0.20 - 1.50 Thou/uL 11/02/2024 8:32 PM [facility] Abs Eosinophils Auto 0.02 0.00 - 0.70 Thou/uL 11/02/2024 8:32 PM [facility] Abs Basophils Auto 0.05 0.00 - 0.20 Thou/uL 11/02/2024 8:32 PM [facility] Blood Blood specimen / Unknown 11/02/2024 8:00 PM EST 11/02/2024 8:22 PM EST Keznie PATTON [place] [address], [place] [address] * Type and Screen (11/02/2024 7:56 PM EST) ABO/Rh A POSITIVE 11/02/2024 10:22 PM [facility] Antibody Screen NEGATIVE 11/02/2024 10:22 PM [facility] Specimen Expiration 11/05/2024 11/02/2024 10:22 PM [facility] Unit Number [id number] 11/04/2024 6:58 AM [facility] Blood Component Type LEUKOREDUCED RED CELLS 11/04/2024 6:58 AM [facility] Unit Division 00 11/04/2024 6:58 AM [facility] Unit Status REL FROM ALLOC 9:33 PM [facility] Transfusion Status OK TO TRANSFUSE 11/04/2024 6:58 AM [facility] Crossmatch Result Electronically Compatible 11/04/2024 6:58 AM [facility] Unit Number [id number] 11/04/2024 6:58 AM [facility] Blood Component Type LEUKOREDUCED RED CELLS 11/04/2024 6:58 AM [facility] Unit Division 00 11/04/2024 6:58 AM [facility] Unit Status REL FROM ALLOC 9:33 PM [facility] Transfusion Status OK TO TRANSFUSE 11/04/2024 6:58 AM [facility] Crossmatch Result Electronically Compatible 11/04/2024 6:58 AM [facility] Blood Blood specimen / Unknown 11/02/2024 7:56 PM EST 11/02/2024 8:51 PM EST Comment:Blood Kenzie PATTON BLOOD BANK TEST ORD ERABLES [facility] See Below [address] [address] * (ABNORMAL) POCT Glucose, Fingerstick (11/02/2024 6:48 [...] MAR Action Action Date Dose Rate Site lactated ringers (LR) infusion 100 mL/hr, Intravenous, Continuous, Starting on Lennie 11/04/24 at 0700, While npo for OR, On hold since 11/06/2024 at 1058 until manually unheld New Bag 11/05/2024 4:33 AM EST 100 mL/hr 100 mL/hr acetaminophen (TYLENOL) tablet 975 mg 975 mg, Oral, Every 6 hours scheduled, First dose on Fri11/02/24 at 1830, May use for pain when patient is tolerating PO Given 11/21/2024 9:16 AM EST 975 mg acetaminophen (TYLENOL) tablet 975 mg 975 mg, Oral, Every 8 hours scheduled, First dose on Fri11/05/24 at 2200 Given 11/06/2024 5:13 AM EST 975 mg amiODARONE (PACERONE) tablet 200 mg 200 mg, Oral, 2 times daily, First dose on Fri11/02/24 at 2100, For 302 days, Hold for HR less than 45 bpm and/or SBP less than 90 mmHg. Notify provider if a dose is held. Given 11/09/2024 9:11 AM EST 200 mg amiODARONE (PACERONE) tablet 200 mg 200 mg, Oral, Daily, First dose (after last modification) on Fri11/10/24 at 0900, Hold for HR less than 45 bpm and/or SBP less than 90 mmHg. Notify provider if a dose is held. Given 11/25/2024 9:35 AM EST 200 mg amLODIPine (NORVASC) tablet 10 mg 10 mg, Oral, Daily, First dose on Fri11/02/24 at 1900, Hold for SBP less than 100 mmHg. Notify provider if a dose is held. Given 11/19/2024 10:21 AM EST 10 mg amLODIPine (NORVASC) tablet 5 mg 5 mg, Oral, Daily, First dose (after last modification) on Fri11/20/24 at 0900, Hold for SBP less than 100 mmHg. Notify provider if a dose is held. Given 11/25/2024 9:35 AM EST 5 mg aspirin enteric coated (ECOTRIN LOW STRENGTH) tablet 81 mg 81 mg, Oral, Daily, First dose on Fri11/03/24 at 0900, Do not crush, chew, or split tablet. Given 11/06/2024 9:08 AM EST 81 mg aspirin enteric coated (ECOTRIN LOW STRENGTH) tablet 81 mg 81 mg, Oral, Every 12 hours scheduled, First dose on Fri11/05/24 at 2100, For 3 weeks postop, start tonight Do not crush, chew, or split tablet., On hold since Lennie 11/11/2024 at 0840 until manually unheld Given 11/10/2024 9:14 AM EST 81 mg aspirin enteric coated (ECOTRIN LOW STRENGTH) tablet 81 mg 81 mg, Oral, Daily, First dose on Fri11/22/24 at 1300, Do not crush, chew, or split tablet. Given 11/25/2024 9:35 AM EST 81 mg aztreonam (AZACTAM) 2 g in sodium chloride-MBP (NS) 100 mL IVPB-MBP 2 g, Intravenous, Administer over 3 Hours, Every 8 hours, First dose on Fri11/07/24 at 1700, These are the approved indications of use of aztreonam at [facility]. Please use Other to document an indication not listed (ID provider approval will be required). Treatment of MDR organisms, All antimicrobials used at [facility] require an indication. Please complete the following documentation. Bacterial Infection Suspected, Type of Therapy: Modification of Therapy, Indication: Pneumonia New Bag 11/10/2024 5:50 AM EST 2 g 33.3 mL/hr benzocaine-menthol (CHLORASEPTIC) 6-10 MG lozenge 1 lozenge 1 lozenge, Mouth/Throat, Every 2 hours PRN, sore throat, Starting on Fri11/17/24 at 1636, Allow lozenge to dissolve slowly in the mouth. bumetanide (BUMEX) injection 1 mg 1 mg, Intravenous, Once, On Fri11/09/24 at 1830, For 1 dose, Hold for SBP less than 100 mmHg. Notify provider if a dose is held. For IV Push, administer over 2 minutes in 10 ml NS Given 11/09/2024 6:37 PM EST 1 mg bumetanide (BUMEX) injection 1 mg 1 mg, Intravenous, Every 12 hours, First dose on Fri11/15/24 at 1730, Hold for SBP less than 100 mmHg. Notify provider if a dose is held. For IV Push, administer over 2 minutes in 10 ml NS Given 11/16/2024 9:49 AM EST 1 mg bumetanide (BUMEX) injection 1 mg 1 mg, Intravenous, Every 24 hours, First dose (after last modification) on Fri11/17/24 at 0800, Hold for SBP less than 100 mmHg. Notify provider if a dose is held. For IV Push, administer over 2 minutes in 10 ml NS Given 11/18/2024 11:03 AM EST 1 mg bumetanide (BUMEX) injection 2 mg 2 mg, Intravenous, Once, On 11/07/24 at 1030, For 1 dose, Hold for SBP less than 100 mmHg. Notify provider if a dose is held. For IV Push, administer over 2 minutes in 10 ml NS Given 11/07/2024 11:01 AM EST 2 mg bumetanide (BUMEX) injection 2 mg 2 mg, Intravenous, Once, On 11/07/24 at 2000, For 1 dose, Hold for SBP less than 100 mmHg. Notify provider if a dose is held. For IV Push, administer over 2 minutes in 10 ml NS Given 11/07/2024 8:43 PM EST 2 mg bumetanide (BUMEX) IV infusion 12.5 mg in 50 mL 2 mg/hr (8 mL/hr), Intravenous, Continuous, Starting on 11/07/24 at 1030, Do Not Titrate. Need new order for each dose change. PROTECT FROM LIGHT Rate/Dose Change 11/12/2024 5:50 PM EST 2 mg/hr 8 mL/hr bumetanide (BUMEX) IV infusion 25 mg in 100 mL 1 mg/hr (4 mL/hr), Intravenous, Continuous, Starting on 11/13/24 at 0100, Do Not Titrate. Need new order for each dose change. PROTECT FROM LIGHT Rate/Dose Change 11/13/2024 2:01 PM EST 1 mg/hr 4 mL/hr bumetanide (BUMEX) tablet 2 mg 2 mg, Oral, Daily, First dose on Fri11/03/24 at 0900, Hold for SBP less than 100 mmHg. Notify provider if a dose is held. Given 11/04/2024 7:55 AM EST 2 mg bumetanide (BUMEX) tablet 2 mg 2 mg, Oral, 2 times daily, First dose (after last modification) on 11/06/24 at 1700, Hold for SBP less than 100 mmHg. Notify provider if a dose is held. Given 11/07/2024 8:17 AM EST 2 mg bumetanide (BUMEX) tablet 2 mg 2 mg, [...] dry eyes, Starting on Fri11/17/24 at 1636 ceftaroline (TEFLARO) 600 mg in sodium chloride (NS) 0.9 % 250 mL IVPB-WTD 600 mg, Intravenous, Administer over 60 Minutes, Every 8 hours, First dose on Fri11/05/24 at 1100, This is the approved indication of use for ceftaroline at [facility]. ID provider approval is also required. 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 Please complete the following documentation. Bacterial Infection Documented, Type of Therapy: New Therapy, Indication: Bacteremia New Bag 11/25/2024 11:13 AM EST 2 g 200 mL/hr chlorhexidine (PERIDEX) 0.12 % oral solution 15 mL 15 mL, Mouth/Throat, Once, On Fri11/05/24 at 1300, For 1 dose, Pre-op, Rinse and brush Given 11/05/2024 12:54 PM EST 15 mL chlorhexidine gluconate 2 % wipes - central line CHG application Topical, Daily, First dose on Fri11/08/24 at 2000, Each pack = 6 wipes. Dose = 1 each. Given 11/17/2024 8:16 AM EST 1 each chlorhexidine gluconate 2 % wipes - urethral catheter CHG application Topical, Daily, First dose on Fri11/17/24 at 1500, Each pack = 6 wipes. Dose = 1 each. Given 11/25/2024 9:51 AM EST 1 each chlorhexidine gluconate 2 % wipes Topical, Once, On Fri11/05/24 at 1300, For 1 dose, Pre-op, Apply to torso (front, back, sides), neck, arms, legs, and buttocks Given 11/05/2024 12:54 PM EST 1 each cholecalciferol tablet 2,000 Units [...] Infectious Disease Physician, Specify Approving Provider: physician David Arreguin 11/25/2024 12:34 PM EST 975 mg 139 mL/hr darbepoetin vern (ARANESP) injection 150 mcg 150 mcg, Subcutaneous, Once, On Fri11/19/24 at 1100, For 1 dose, Do not shake. Do not dilute or administer in conjunction with other drug solutions., Patient Has Documented Problem of ESRD (ICD-10: N18.6) and JENNIFER is being used to treat symptoms of ESRD? Yes Given 11/19/2024 11:41 AM EST 150 mcg Abdominal Tissue docusate sodium (COLACE) capsule 100 mg 100 mg, Oral, 2 times daily, First dose on Fri11/02/24 at 2100 Given 11/07/2024 8:15 AM EST 100 mg donepezil (ARICEPT) tablet 10 mg 10 mg, Oral, Every morning, First dose on Fri11/03/24 at 0800 Given 11/25/2024 9:35 AM EST 10 mg empagliflozin (JARDIANCE) 25 mg 25 mg, Oral, Daily, First dose on Fri11/03/24 at 0900 Given 11/25/2024 9:35 AM EST 25 mg enoxaparin (LOVENOX) syringe 40 mg 40 mg, Subcutaneous, Once, On Lennie 11/04/24 at 0900, For 1 dose, Not for use in patients receiving dialysis. Given 11/04/2024 10:15 AM EST 40 mg Abdominal Tissue erythromycin (ILOTYCIN) ophthalmic ointment 1 application(s) 1 [...] Given 11/25/2024 9:34 AM EST 1 mg gabapentin (NEURONTIN) capsule 300 mg 300 mg, Oral, 3 times daily, First dose (after last modification) on Fri11/06/24 at 1400 Given 11/06/2024 2:38 PM EST 300 mg glimepiride (AMARYL) tablet 2 mg 2 [...] 9:31 AM EST 5,000 Units Abdominal Tissue HYDROmorphone (DILAUDID) oral liquid 1 mg 1 mg, Oral, Once, On Fri11/09/24 at 1600, For 1 dose Given 11/09/2024 3:38 PM EST 1 mg HYDROmorphone (DILAUDID) oral liquid 1 mg 1 mg, Oral, Once, On Fri11/11/24 at 0800, For 1 dose Given 11/11/2024 8:08 AM EST 1 mg HYDROmorphone (DILAUDID) tablet 2 mg 2 mg, Oral, Every 3 hours PRN, moderate to moderately severe pain 4-6, Starting on Fri11/06/24 at 1222, For 12 days 2 hours Given 11/18/2024 10:30 AM EST 2 mg HYDROmorphone (DILAUDID) tablet 4 mg 4 mg, Oral, Every 3 hours PRN, severe to excruciating pain 7-10, Starting on Fri11/06/24 at 1222, For 12 days 2 hours Given 11/16/2024 10:13 PM EST 4 mg HYDROmorphone (DILAUDID) tablet 4 mg 4 mg, Oral, Every 3 hours PRN, severe to excruciating pain 7-10, Starting on Fri11/18/24 at 2034, For 1 day Given 11/19/2024 4:50 AM EST 4 mg insulin glargine (LANtus/SEMGLEE) 100 units/mL injection 10 Units 10 Units, Subcutaneous, Daily, First dose (after last modification) on Fri11/18/24 at 0900 Given 11/25/2024 9:33 AM EST 10 Units Left Arm insulin glargine (LANtus/SEMGLEE) 100 units/mL injection 3 Units 3 Units, Subcutaneous, Once, On Fri11/17/24 at 1100, For 1 dose Given 11/17/2024 12:12 PM EST 3 Units Right Arm insulin glargine (LANtus/SEMGLEE) 100 units/mL injection 5 Units 5 Units, Subcutaneous, Daily, First dose on Fri11/16/24 at 0900 Given 11/17/2024 8:14 AM EST 5 Units Left Arm insulin lispro (HumaLOG/ADMELOG) 100 units/mL injection 1-11 Units 1-11 Units, Subcutaneous, 3 times daily with meals, First dose on Fri11/07/24 at 1700, DO NOT HOLD IF NPO Notify provider if Blood Glucose LESS than 70 For BG 141-160 administer 1 unit For BG 161-180 administer 2 units For BG 181-200 administer 3 units For BG 201-220 administer 4 units For BG 221-240 administer 5 units For BG 241-260 administer 6 units For BG 261-280 administer 7 units For BG 281-300 administer 8 units For BG 301-320 administer 9 units, For BG 321-340 administer 10 units For BG MORE than 340, administer 11 units AND notify provider Given 11/11/2024 8:30 AM EST 4 Units Abdominal Tissue insulin lispro (HumaLOG/ADMELOG) 100 units/mL injection 1-4 Units 1-4 Units, Subcutaneous, Nightly and 0200, First dose on Fri11/02/24 at 2100, DO NOT HOLD IF NPO Notify provider if Blood Glucose LESS than 70 For BG 201-250 administer 1 unit For BG 251-300 administer 2 units For BG 301-350 administer 3 units For BG MORE than 350, administer 4 units AND notify provider Given 11/07/2024 2:13 AM EST 1 Units Left Arm insulin lispro (HumaLOG/ADMELOG) 100 units/mL injection 1-4 Units 1-4 Units, Subcutaneous, Nightly, First dose on Fri11/07/24 at 2100, DO NOT HOLD IF NPO Notify provider if Blood Glucose LESS than 70 For BG 201-250 administer 1 unit For BG 251-300 administer 2 units For BG 301-350 administer 3 units For BG MORE than 350, administer 4 units AND notify provider Given 11/07/2024 8:46 PM EST 2 Units Left Arm insulin lispro (HumaLOG/ADMELOG) 100 units/mL injection 1-4 Units 1-4 Units, Subcutaneous, Nightly and 0200, First dose (after last modification) on 11/08/24 at 2100, DO NOT HOLD IF NPO Notify provider if Blood Glucose LESS than 70 For BG 201-250 administer 1 unit For BG 251-300 administer 2 units For BG 301-350 administer 3 units For BG MORE than 350, administer 4 units AND notify provider Given 11/10/2024 8:38 PM EST 1 Units Left Arm insulin lispro (HumaLOG/ADMELOG) 100 units/mL injection 1-5 Units 1-5 Units, Subcutaneous, 3 times daily with meals, First dose on 11/13/24 at 1730, DO NOT HOLD IF NPO Notify provider if Blood Glucose LESS than 70 For BG 141-190 administer 1 unit For BG 191-240 administer 2 units For BG 241-290 administer 3 units For BG 291-340 administer 4 units For BG MORE than 340, administer 5 units AND notify provider Given 11/15/2024 8:47 AM EST 2 Units Right Arm insulin lispro (HumaLOG/ADMELOG) 100 units/mL injection 1-6 Units 1-6 Units, Subcutaneous, 3 times daily with meals, First dose on Fri11/02/24 at 1830, DO NOT HOLD IF NPO Notify provider if Blood Glucose LESS than 70 For BG 141-180 administer 1 unit For BG 181-220 administer 2 units For BG 221-260 administer 3 units For BG 261-300 administer 4 units For BG 301-340 administer 5 units For BG MORE than 340, administer 6 units AND notify provider Given 11/07/2024 12:44 PM EST 2 Units Left Arm insulin lispro (HumaLOG/ADMELOG) 100 units/mL injection 1-6 Units 1-6 Units, Subcutaneous, Every 4 hours scheduled, First dose on Lennie 11/11/24 at 1200, DO NOT HOLD IF NPO Notify provider if Blood Glucose LESS than 70 For BG 141-180 administer 1 unit For BG 181-220 administer 2 units For BG 221-260 administer 3 units For BG 261-300 administer 4 units For BG 301-340 administer 5 units For BG MORE than 340, administer 6 units AND notify provider Given 11/13/2024 12:17 PM EST 3 Units Right Arm insulin lispro (HumaLOG/ADMELOG) 100 units/mL injection [...] 12:33 PM EST 3 Units Right Arm insulin lispro (HumaLOG/ADMELOG) 100 units/mL injection 5 Units 5 Units, Subcutaneous, 3 times daily with meals, First dose on Fri11/08/24 at 1700, On hold since Fri11/10/2024 at 0752 until manually unheld Given 11/09/2024 1:13 PM EST 5 Units Abdominal Tissue iohexol (OMNIPAQUE) 350 mg/mL injection 160 mL 160 mL, Intravenous, Once in imaging, contrast, Starting on Fri11/08/24 at 0311, For 1 dose, Radiology Appointment Given 11/08/2024 3:12 AM EST 160 mL Right Arm ipratropium-albuterol (DUONEB) 0.5-2.5 mg/3 mL [...] Given 11/07/2024 10:25 AM EST 3 mL LORazepam (ATIVAN) injection 0.5 mg 0.5 mg, Intravenous, bight maker, On Fri11/12/24 at 1300, For 1 dose, Oncall for MRI If ordered IV Push: Dilute with equal amount of normal saline. Do not exceed 2 mg/minute or 0.05 mg/kg over 2-5 minutes. Monitor I.V. site during administration. Avoid intra-arterial administration. Avoid extravasation. Given 11/12/2024 12:49 PM EST 0.5 mg magnesium sulfate IVPB 2 g in 50 mL SW PREMIX 2 g, Intravenous, Administer over 60 Minutes, Once, On 11/08/24 at 2000, For 1 dose New Bag 11/08/2024 9:04 PM EST 2 g 50 mL/hr magnesium sulfate IVPB 2 g in 50 mL SW PREMIX 2 g, Intravenous, Administer over 60 Minutes, Once, On Lennie 11/11/24 at 1730, For 1 dose New Bag 11/11/2024 5:31 PM EST 2 g 50 mL/hr magnesium sulfate IVPB 2 g in 50 mL SW PREMIX 2 g, Intravenous, Administer over 60 Minutes, Once, On 11/13/24 at 1100, For 1 dose New Bag 11/13/2024 12:18 PM EST 2 g 50 mL/hr melatonin tablet 3 mg 3 mg, Oral, Nightly PRN, insomnia, Starting on Fri11/02/24 at 1828 Given 11/19/2024 10:22 PM EST 3 mg meropenem (MERREM) 500 mg in sodium chloride-MBP (NS) 100 mL IVPB-MBP 500 mg, Intravenous, Administer over 3 Hours, Every 6 hours, First dose on Fri11/03/24 at 0900, These are the approved indications of use for meropenem at [facility]. Please use Other to document an indication not listed (ID provider approval will be required). ID approval, You have selected a restricted antimicrobial, please complete the following required documentation. Bacterial Infection Documented, Type of Therapy: New Therapy, Indication: Osteomyelitis, Please document the authorizing Infectious Disease provider: Infectious Disease Physician, Specify Approving Provider: Bibi New Bag 11/05/2024 9:08 AM EST 500 mg 33.3 mL/hr metFORMIN (GLUCOPHAGE) tablet 500 mg 500 mg, Oral, Daily with breakfast, First dose on Fri11/03/24 at 0800, Administer with a meal (to decrease GI upset). Information on use with Iodinated contrast: Recommend to hold metformin and call prescriber if eGFR is less than 30 mL/min/1.72 m2 or if serum creatinine is greater than or equal to 1.8 mg/dL. Refer to site specific policy, On hold since Lennie 11/04/2024 at 1503 until manually unheld Given 11/04/2024 7:56 AM EST 500 mg methocarbamol (ROBAXIN) tablet 1,000 mg 1,000 mg, Oral, 4 times daily, First dose (after last modification) on 11/06/24 at 1800 Given 11/25/2024 12:33 PM EST 1,000 mg methocarbamol (ROBAXIN) tablet 750 mg 750 mg, Oral, 4 times daily PRN, muscle spasms, Starting on Fri11/02/24 at 1821 Given 11/06/2024 5:13 AM EST 750 mg metolazone (ZAROXOLYN) tablet 5 mg 5 mg, Oral, Once, On Fri11/12/24 at 1700, For 1 dose, Hold for SBP less than 100 mmHg. Notify provider if a dose is held. Given 11/12/2024 5:50 PM EST 5 mg metoPROLOL TARTRATE (LOPRESSOR) tablet 50 mg 50 mg, Oral, 2 times daily, First dose on Fri11/02/24 at 2100, Hold for HR less than 45 bpm and/or SBP less than 90 mmHg. Notify provider if a dose is held. Given 11/25/2024 9:35 AM EST 50 mg midazolam (VERSED) 2 mg/2 mL injection 2 mg 2 mg, Intravenous, Once, On 11/08/24 at 1630, For 1 dose, For IV Push: draw up dose to final volume of 10 mL in NS. Administer over 2 minutes. Given 11/08/2024 4:30 PM EST 2 mg multivitamin with minerals tablet 1 tablet [...] Given 11/17/2024 4:39 PM EST 4 mg oxyCODONE (ROXICODONE) immediate release tablet 10 mg 10 mg, Oral, Every 3 hours PRN, severe to excruciating pain 7-10, Starting on Fri11/02/24 at 1830, For 7 days Given 11/04/2024 4:01 PM EST 10 mg oxyCODONE (ROXICODONE) immediate release tablet 10 mg 10 mg, Oral, Every 3 hours PRN, severe to excruciating pain 7-10, Starting on Fri11/05/24 at 1912, For 7 days, Use when patient is tolerating PO Given 11/06/2024 9:09 AM EST 10 mg oxyCODONE (ROXICODONE) immediate release tablet 5 mg 5 mg, Oral, Every 3 hours PRN, moderate to moderately severe pain 4-6, Starting on Fri11/05/24 at 1912, For 7 days, Use when patient is tolerating PO Given 11/06/2024 5:13 AM EST 5 mg PANTOprazole (PROTONIX) EC tablet 40 mg 40 mg, Oral, Daily, First dose on Fri11/03/24 at 0900, *DO NOT CHEW OR CRUSH* Given 11/25/2024 9:35 AM EST 40 mg polyethylene glycol (miraLAx) packet 17 g 17 g, Oral, Daily, First dose (after last modification) on Fri11/17/24 at 1100, Stir and dissolve in 4-8 oz of fluids. Given 11/25/2024 9:32 AM EST 17 g potassium chloride (KLOR-CON M10) CR tablet 30 mEq 30 mEq, Oral, Every 1 hour, First dose on Fri11/11/24 at 1600, For 2 doses, Swallow tablets whole; do not crush, chew, or suck on tablet. Take with meals and a full glass of water or other liquid to minimize the risk of GI irritation. Swallow tablets whole; do not crush, chew, or suck on tablet. Take with meals and a full glass of water or other liquid to minimize the risk of GI irritation. Given 11/11/2024 5:33 PM EST 30 mEq potassium chloride (KLOR-CON M10) CR tablet 30 mEq 30 mEq, Oral, Every 1 hour, First dose (after last reorder) on Fri11/11/24 at 1730, For 2 doses, Swallow tablets whole; do not crush, chew, or suck on tablet. Take with meals and a full glass of water or other liquid to minimize the risk of GI irritation. Swallow tablets whole; do not crush, chew, or suck on tablet. Take with meals and a full glass of water or other liquid to minimize the risk of GI irritation. Given 11/11/2024 6:45 PM EST 30 mEq potassium chloride (KLOR-CON M20) CR tablet 20 mEq 20 mEq, Oral, Once, On Fri11/08/24 at 2000, For 1 dose, Swallow tablets whole; do not crush, chew, or suck on tablet. Take with meals and a full glass of water or other liquid to minimize the risk of GI irritation. Swallow tablets whole; do not crush, chew, or suck on tablet. Take with meals and a full glass of water or other liquid to minimize the risk of GI irritation. Given 11/08/2024 8:39 PM EST 20 mEq potassium chloride (KLOR-CON M20) CR tablet 20 mEq 20 mEq, Oral, Once, On Fri11/09/24 at 0400, For 1 dose, Swallow tablets whole; do not crush, chew, or suck on tablet. Take with meals and a full glass of water or other liquid to minimize the risk of GI irritation. Swallow tablets whole; do not crush, chew, or suck on tablet. Take with meals and a full glass of water or other liquid to minimize the risk of GI irritation. Given 11/09/2024 4:48 AM EST 20 mEq potassium chloride (KLOR-CON M20) CR tablet 20 mEq 20 mEq, Oral, Once, On Fri11/11/24 at 0430, For 1 dose, Swallow tablets whole; do not crush, chew, or suck on tablet. Take with meals and a full glass of water or other liquid to minimize the risk of GI irritation. Swallow tablets whole; do not crush, chew, or suck on tablet. Take with meals and a full glass of water or other liquid to minimize the risk of GI irritation. Given 11/11/2024 6:25 AM EST 20 mEq potassium chloride (KLOR-CON M20) CR tablet 20 mEq 20 mEq, Oral, Once, On 11/20/24 at 0830, For 1 dose, Swallow tablets whole; do not crush, chew, or suck on tablet. Take with meals and a full glass of water or other liquid to minimize the risk of GI irritation. Swallow tablets whole; do not crush, chew, or suck on tablet. Take with meals and a full glass of water or other liquid to minimize the risk of GI irritation. Given 11/20/2024 9:42 AM EST 20 mEq potassium chloride (KLOR-CON M20) CR tablet 40 mEq 40 mEq, Oral, Once, On 11/13/24 at 1100, For 1 dose, Swallow tablets whole; do not crush, chew, or suck on tablet. Take with meals and a full glass of water or other liquid to minimize the risk of GI irritation. Swallow tablets whole; do not crush, chew, or suck on tablet. Take with meals and a full glass of water or other liquid to minimize the risk of GI irritation. Given 11/13/2024 12:17 PM EST 40 mEq potassium chloride (KLOR-CON M20) CR tablet 40 mEq 40 mEq, Oral, Once, On 11/21/24 at 1230, For 1 dose, Swallow tablets whole; do not crush, chew, or suck on tablet. Take with meals and a full glass of water or other liquid to minimize the risk of GI irritation. Swallow tablets whole; do not crush, chew, or suck on tablet. Take with meals and a full glass of water or other liquid to minimize the risk of GI irritation. Given 11/21/2024 12:21 PM EST 40 mEq potassium chloride (KLOR-CON) packet 40 mEq 40 mEq, Oral, Once, On Lennie 11/18/24 at 1230, For 1 dose, Dissolve contents of 1 packet in 4 ounces of water. Given 11/18/2024 12:33 PM EST 40 mEq povidone-iodine (BETADINE) 5 % nasal swab kit Nasal, Once, On Fri11/05/24 at 1300, For 1 dose, Pre-op, Two swabs per nostril, 15 seconds each Given 11/05/2024 12:54 PM EST 4 mL povidone-iodine (BETADINE) 5 % nasal swab kit Nasal, Once, On Fri11/17/24 at 1400, For 1 dose, Pre-Procedure EP, Two swabs per nostril, 15 seconds each Given 11/17/2024 1:52 PM EST 4 mL pregabalin (LYRICA) capsule 100 mg 100 mg, Oral, 3 times daily, First dose (after last modification) on Fri11/17/24 at 1400 Given 11/25/2024 12:33 PM EST 100 mg pregabalin (LYRICA) capsule 150 mg 150 mg, Oral, 2 times daily, First dose on Fri11/02/24 at 2100 Given 11/06/2024 9:07 AM EST 150 mg pregabalin (LYRICA) capsule 150 mg 150 mg, Oral, 3 times daily, First dose (after last modification) on Fri11/06/24 at 2200 Given 11/10/2024 8:37 PM EST 150 mg pregabalin (LYRICA) capsule 150 mg 150 mg, Oral, 3 times daily, First dose (after last reorder) on Fri11/11/24 at 1000 Given 11/11/2024 1:44 PM EST 150 mg pregabalin (LYRICA) capsule 150 mg 150 mg, Oral, 3 times daily, First dose (after last reorder) on Fri11/11/24 at 2200 Given 11/17/2024 8:16 AM EST 150 mg senna (SENOKOT) tablet 2 tablet 2 tablet, Oral, Nightly, First dose on Fri11/02/24 at 2100 Given 11/06/2024 9:08 PM EST 2 tablets senna-docusate (SENNA-S) 8.6-50 MG tablet 2 tablet 2 tablet, Oral, 2 times daily, First dose on Fri11/05/24 at 2100 Given 11/25/2024 9:36 AM EST 2 tablets sodium chloride (NS) 0.9 % infusion - ADS Override Pull Starting on Fri11/02/24 at 213, For 1 dose, Belkys Diaz: cabinet override New Bag 11/02/2024 10:29 PM EST 250 mL sodium chloride (NS) 0.9 % infusion - ADS Override Pull Starting on Fri11/08/24 at 2052, For 1 dose, Krystina Felipe: cabinet override New Bag 11/08/2024 9:03 PM EST 100 mL thiamine mononitrate (VITAMIN B-1) tablet 200 mg 200 mg, Oral, Daily, First dose on Fri11/05/24 at 1700 Given 11/25/2024 9:34 AM EST 200 mg vancomycin (VANCOCIN) IVPB 2000 mg in 500 mL NS (-premix) 2,000 mg, Intravenous, Administer over 120 Minutes, Once, On Fri11/02/24 at 2030, For 1 dose, All antimicrobials used at [facility] require an indication. Please complete the following documentation. Bacterial Infection Suspected, Type of Therapy: New Therapy, Indication: Osteomyelitis New Bag 11/02/2024 10:26 PM EST 2,000 mg 270 mL/hr documented in this encounter Active and Recently [...] Caldwell RN) 0935 (Given - Provider: Mitesh Caldwell, JOSUE) amLODIPine (NORVASC) tablet 5 mg 5 mg, Oral, Daily, First dose (after last modification) on 11/20/24 at 0900, Hold for SBP less than 100 mmHg. Notify provider if a dose is held. 0853 (Given - Provider: Nelson Iqbal RN) 0829 (Given - Provider: Mitesh Caldwell RN) 0935 (Given - Provider: Mitesh Caldwell, JOSUE) aspirin enteric coated (ECOTRIN LOW STRENGTH) tablet [...] mL/hr, Every 24 hours, First dose on Lennie 11/18/24 at 1130, All antimicrobials used at [facility] require an indication. Please complete the following [...] Montemayor RN) 0951 (Given - Provider: Mitesh Caldwell, JOSUE) cholecalciferol tablet 2,000 Units 2,000 Units, Oral, [...] 1234 (New Bag - Provider: Mitesh Caldwell RN)2150 (Due: Stopped) donepezil (ARICEPT) tablet 10 mg [...] Montemayor RN) 0323 (Given - Provider: Marisel Wray, JOSUE)0931 (Given - Provider: Mitesh Caldwell RN)1700 (Not Given - Provider: Mitesh Caldwell RN - Reason: Patient/family refused) insulin glargine (LANtus/SEMGLEE) 100 units/mL injection 10 Units 10 Units, Subcutaneous, Daily, First dose (after last modification) on Lennie 11/18/24 at 0900 0901 (Given - Provider: Nelson [...] Nelson Iqbal RN)1406 (Given - Provider: Nelson Iqbal, JOSUE)1728 (Given - Provider: Nelson Iqbal RN)2108 (Given - Provider: Marisel Wray RN) 0815 (Given - Provider: Mitesh Caldwell RN)1351 (Given - Provider: Page Montemayor, JOSUE)1900 (Already Given - See Override Pulls - [...] held. 0852 (Given - Provider: Nelson Iqbal RN)2108 (Given - Provider: Marisel Wray RN) 0815 (Given - Provider: Mitesh Caldwell RN)2107 (Given - Provider: Agnieszka Torrez RN) 0935 (Given - Provider: Mitesh Caldwell RN) multivitamin with minerals tablet 1 [...] since Fri11/03/2024 at 0850 until manually unheld 09 (Hold - Provider: Nelson Iqbal RN - Reason: See Provider Order) 0900 (Hold - Provider: Page Montemayor RN - Reason: See Provider Order) 0900 (Not Given - Provider: Mitesh Caldwell RN - Reason: See Provider Order)215 (Provider Unheld - Provider: Automatic Discharge Provider) pregabalin (LYRICA) capsule 100 mg 100 mg, Oral, 3 times daily, First dose (after last modification) on Fri11/17/24 at 1400 0852 (Given - Provider: Nelson Iqbal RN)1407 (Given - Provider: Nelson Iqbal RN)2108 (Given [...] Nelson Iqbal RN)2112 (Given - Provider: Marisel Wray RN) 0814 (Given - Provider: Mitesh Caldwell, JOSUE)210 (Given - Provider: Agnieszka Torrez RN) 0936 (Given - Provider: Mitesh Caldwell RN) thiamine mononitrate (VITAMIN B-1) tablet 200 mg [...] documented as of this encounter Care Teams Vehicle Damage Appraiser Relationship Specialty Start Date End Date Lee Fabian MD [address] [place] [phone] PCP - General Internal Medicine 09/02/24 Vitaliy Fields MD [address] [place] [address] Cardiovascular Disease 09/02/24 [place] Camejo MD 7 [place] [address] Surgery, Orthopedic 09/02/24 Rolando Lopez MD [address] Transplant - Ph 14 [place] [address] Physician Nephrology 09/02/24 Cesar Fair MD 85 [facility] [address] [place] [phone] Surgery, Cardiac 11/08/24 Daisy Her, PT 85 [facility] [address] [place] [address] Spot Welder Body AssemblyHorse Breaker Medicine and Rehabilitation 11/18/24 documented as of this encounter
--- OUTSIDE RECORDS SUMMARY | 2024-12-02 10:39 | XMS_ITS | Encounter Summary ---
Author Organization [facility] Address [address] [place] [address] Care Team Providers Care Toucher Up Name Role Phone Lee Fabian MD Primary Care Provider [phone] Vitaliy Fields MD Unavailable [phone] [place] Camejo MD Unavailable [phone] Rolando Lopez MD Unavailable Cesar Fair MD Unavailable [phone] Daisy Her PT Unavailable [phone] Encounter Details Date Type Department Care Team (Late st Contact Info) Description 12/01/2024 Orders Only [facility] [address] [place] [address] [place] Camejo MD [address] [place] [address] Below-knee amputation of left lower extremity, initial encounter (HCC) (Primary Dx) Social History Tobacco Use Types Packs/Day Years Used Date Smoking Tobacco: Former Cigarettes 1 29.2 1 977 - 2004 Smokeless Tobacco: Never Alcohol Use Standard Drinks/Week Comments Yes 21 (1 standard drink = 0.6 oz pu re alcohol) [facility] Utilities Answer Date Recorded In the past 12 months has th e buuteeq, gas, oil, or water company threatened to [...] any time in the past 12 m [facility], were you homeless or living in a prison (including now)? No 11/03/2024 Sex and Gender Information Value Date Recorded Sex Assigned at Male 09/03/2024 12:21 PM EST Gender Identity Male 09/03/2024 12:21 PM EST Sexual Orientation Heterosexual (straight) 09/10 7:58 AM EST documented as of this encounter Plan of Treatment Upcoming Encounters Date Type Department Care Team (Late st Contact Info) Description 12/07/2024 1:30 PM EDT Appointment [facility] Heart & Vascular [place] - Electrophysiology [address] [facility] [place] [address] Gretel Hinds, CHEMIST HELPER [address] [phone] 12/14/2024 2:00 PM EDT Office Visit [facility] [place] [address] [address] [place] Camejo MD 7 [place] [address] 12/16/2024 8:30 AM EDT Office Visit [facility] Infectious Disease [address] [place] [phone] Ena Mtz MD [address] [place], [place] [id number] documented as of this encounter Visit Diagnoses Diagnosis Below-knee amputation of left lower extremity, initial encounter (HCC)- Primary documented in this encounter Care Teams Toucher Up Relationship Specialty Start Date End Date Lee Fabian MD [address] [place] [address] PCP - General Internal Medicine 09/02/24 Vitaliy Fields MD [address] [address] Cardiovascular Disease 09/02/24 Dallsa Camejo MD [address] [place] [address] Surgery, Orthopedic 09/02/24 Rolando Lopez MD [address] Transplant - 14 [place] [address] Physician Nephrology 09/02/24 Cesar Fair MD 85 [facility] 919 [place], [place] [phone] Surgery, Cardiac 11/08/24 Daisy Her, PT [address] [facility] [address] [place], [place] [phone] Irrigation ManagerIct Analyst Medicine and Rehabilitation 11/18/24 documented as of this encounter
--- OUTSIDE RECORDS SUMMARY | 2024-12-02 10:39 | XMS_ITS | Clinical Summary ---
Author Organization [facility] Address [address] [facility] [address] [place] [address] Phone Care Team Providers Care Bank Sales And Service Manager Name Role Phone Lee Fabian MD Primary Care Provider [phone] Allergies Active Allergy Reactions Criticality Noted Date Comments Lisinopril 04/14/2024 Other Reaction(s): KIDNEY DAMAGE Medications aspirin (ST SHELLI) 81 MG EC tablet Take 81 mg by mouth 4 Active bumetanide (BUMEX) 2 MG tablet Take 2 mg by mouth 9 Active cephalexin (KEFLEX) 500 MG capsule Take 500 mg by mouth in the morning and 500 mg in the evening. Active cyanocobalamin 500 MCG tablet Take 500 mcg by mouth Active donepezil (ARICEPT) 10 MG tablet Take 10 mg by mouth 1 (one) time each day Active Jardiance 10 MG tablet Take 25 mg by mouth every morning 4 Active Ergocalciferol 50 MCG (2000 UT) capsule Take 2 capsules by mouth 1 (one) time each day 4 Active Ferrous Sulfate (Iron) 325 (65 Fe) MG tablet Take 1 tablet by mouth 1 (one) time each day 4 Active glipiZIDE 2.5 MG tablet Take 1 tablet by mouth in the morning and 1 tablet in the evening. 4 Active Magnesium Oxide -Mg Supplement 400 MG capsule Take 1 capsule by mouth 1 (one) time each day Active Melatonin 10 MG tablet Take 5 mg by mouth Active metFORMIN (GLUCOPHAGE) 1000 MG tablet Take 500 mg by mouth 1 (one) time each day with breakfast 4 Active metoprolol succinate XL (TOPROL XL) 25 MG 24 hr tablet Take 1 tablet by mouth 1 (one) time each day 4 Active pantoprazole (PROTONIX) 40 MG EC tablet Take 40 mg by mouth 1 (one) time each day Active pravastatin (PRAVACHOL) 20 MG tablet Take 1 tablet by mouth 1 (one) time each day Active pregabalin (LYRICA) 150 MG capsule Take 150 mg by mouth in the morning and 150 mg in the evening. Active Active Problems Problem Noted Date Diagnosed Date Stage 3a chronic kidney disease 06/01/2024 Renal osteodystrophy 06/01/2024 Type 2 diabetes mellitus wit h diabetic chronic kidney disease 04/14/2024 Stage 3b chronic kidney disease 04/14/2024 Diabetes mellitus 01/18/2011 Hypertension 01/18/2011 Immunizations Name Administration Dates Next Due Pneumococcal Polysaccharide 11/11/2015 Social History Tobacco Use Types Packs/Day Years Used Date Smoking Tobacco: Never Assessed Sex and Gender Information Value Date Recorded Sex Assigned at Not on file Legal Sex Male 4:51 PM EST Gender Identity Not on file Sexual Orientation Not on file Last Filed Vital Signs Vital Sign Reading Time Taken Comments Blood Pressure 122/64 06/01/2024 1:16 PM EDT Pulse 77 06/01/2024 1:16 PM EDT Temperature - - Respiratory Rate - - Oxygen Saturation 98% 06/01/2024 1:16 PM EDT Inhaled Oxygen Concentration - - Weight 106 kg (233 lb) 06/01/2024 1:16 PM EDT Height - - Body Mass Index - - Plan of Treatment Upcoming Encounters Date Type Department Care Team (Late st Contact Info) Description 12/15/2024 3:45 PM EDT [facility] Visit [facility] [address] [address] Rolando Lopez MD [address] [address] Health Maintenance Due Date Last Done Comments Colorectal Cancer Screening: Annual FOBT 2009 Colorectal Cancer Screening: Colonoscopy 2009 Colorectal Cancer Screening: Sigmoidoscopy 2009 Pneumococcal Vaccine: Pediatrics (0 to 5 Years) and At-Risk Patients (6 to 64 Years) (3 of 3 - PCV) 01/05/2018 01/05/2017, 11/11/2015 Diabetes: Ophthalmology Exam 01/22/2024, 11/07/2015, 10/17/2006 Diabetes: Pedal Pulse Checked 01/22/2024 Diabetes: Sensory Foot Exam 01/22/2024 Diabetes: Visual Foot Exam 01/22/2024 Diabetes: Hemoglobin A1C 12/02/2024 024, 07/22/2024, 04/28/2024, Additional history exists Influenza Vaccine Completed 06/22/2024, , 07/18/2022, Additional history exists Hepatitis B Vaccine Aged Out No longe r eligible based on patient's age to complete this topic Insurance [facility] ([id number]) [facility] PPO ([id number]) Care Teams Bank Sales And Service Manager Relationship Specialty Start Date End Date Lee Fabian MD PCP - General Internal Medicine 01/21/24
--- OUTSIDE RECORDS SUMMARY | 2024-12-02 10:39 | XMS_ITS | Encounter Summary ---
Author Organization Formerly [facility] Address [address] [place] [address] Care Team Providers Care Upper Tier Name Role Phone Lee Fabian MD Primary Care Provider Vitaliy Fields MD Unavailable Dallas Camejo MD Unavailable [phone] Rolando Lopez MD Unavailable Reason for Visit * Auth/Cert Specialty Diagnoses / Procedures Referred By London sewell Referred To Contact Diagnoses left ankle infection Procedures N/A Referral ID Status Reason Start Date Expiration Date Visits Re quested Visits Authorized [id number] 1 1 Encounter Details Date Type Department Care Team (Late st Contact Info) Description 11/05/2024 1:32 PM EST Anesthesia Event [facility] at [address] [phone] Juaquin Rueda MD [address] [place] [address] Glo Ngo PA-C [address] [place] [address] [address] [place] [address] Anesthesia Record Procedure Summary Procedure Name Responsible Anesthesiologist Anesthesia Start Time Anesthesia Stop Time LEFT BELOW KNEE AMPUTATION (Left: Knee) Juaquin Rueda MD 11/05/24 1332 11/05/24 1519 Events Date Time Event Comment 11/05/2024 1214 1240 AN Equip Check 1332 An Start 1332 An Start Data 1341 An Data Art Pulse oximeter not working properly, new sticker placed on different finger with appropriate wave form and O2 sat 1344 An Induction 1347 AN LMA 1348 Anesthesia Ready 1407 Skin Incision 1407 An Tourn Inflated 1430 An Tourn Deflated 1513 AN Emergence 1513 AN Lma 1516 AN Stop Data 1518 AM Pt Transferred 1518 AN Pt Transferred 1519 An Stop 1519 Handoff to Receiving I compl eted my handoff to the receiving clinician during which we: 1. Identified the patient 2. Identified the responsible provider 3. Reviewed pertinent medical history 4. Discussed the surgical or procedural course 5. Reviewed intraoperative management and issues during anesthesia 6. Set expectations for the post-procedure period 7. Allowed opportunity for questions and acknowledgement of understanding. Meds Name Total fentaNYL 50 mcg/mL injection 100 mcg propofol 10 mg/mL BOLUS 80 mg ondansetron (ZOFRAN) 2 mg/mL injection 4 mg ketamine 10 mg/mL injection (5 mL syring e) 30 mg norepinephrine (LEVOPHED) 8 mg in sodium chloride (NS) 0.9 % 250 mL IV infusion 406 mcg LR 450 mL * Agents Name O2 Air Sevoflurane * Blood No blood administrations on file. Lines, Drains, and Airways Type Details Placement Removal Brace/Orthotic/Ortho sis 09/10/24; 1301; left; ankle/foot; splint 09/10/24 1301 by Mary Emrey RN Wound (Adult, Obstetrics, Pediatric) 11/02/24; 1900; Right; foot, plantar 11/02/24 1900 by Belkys Diaz RN Incision (Adult, Obstetrics, Pediatrics) 11/05/24; 1516; Left; leg; Xeroform, Abd, Stockingnette, Maykel Bandage 11/05/24 1516 by Cynthia Desai RN NPWT (Negative Pressure Wound Therapy) 09/10/24; 0800 (patient came in to pre-op with wound vac in place.); Left; LEFT ANKLE; 11/09/24 (Left BKA); 0305 09/10/24 0800 by Rosemary Interiano RN 11/09/24 0305 by Krystina Felipe RN Incision (Adult, Obstetrics, Pediatrics) 09/10/24; 1230; Left; foot; Wound vac placed, abd, CAST PADDING, BA WRAP, POSTERIOR SPLINT, BA WRAP; 11/09/24 (Left BKA); 0305 09/10/24 1230 by Mary Emery RN 11/09/24 0305 by Krystina Felipe RN Wound (Adult, Obstetrics, Pediatric) 09/12/24; 1420; Right; plantar; puncture; pt states stepped on glass; 11/12/24; 1528 09/12/24 1420 by Alaina Charlton RN 11/12/24 1528 by Gilda May RN Incision (Adult, Obstetrics, Pediatrics) 09/15/24; 1153; Right; groin; dermabond; 11/12/24; 1529 09/15/24 1153 by Mikhail House RN 11/12/24 1529 by Gilda May RN Wound (Adult, Obstetrics, Pediatric) 11/02/24; 1900; Left; foot; 11/07/24; 0700 11/02/24 1900 by Belkys Diaz RN 11/07/24 0700 by Mario Bhatt RN PIV-Single luman 11/03/24; 2100; [facility] ([facility]3] vein (lateral side of arm), left; mvxo-jsg-fqmipm catheter system; 22 gauge, 1 in length, 3/4 in length; ultrasound guidance; 0; 11/08/24; 0000 11/03/24 2100 by Adama Ricci RN 11/08/24 0000 by Anna Martinez RN Airway-Oral/PARTS DRIVER 11/05/24; 1408 (crea adrián via procedure documentation); laryngeal mask airway; 11/05/24; 1513 11/05/24 1408 by Juaquin Rueda MD 11/05/24 1513 by Juaquin Rueda MD Drain/Device Site 11/05/24; 1445; Left ; distal; thigh; collapsible closed device; Medium Hemovac Drain; 11/07/24; 0700 11/05/24 1445 by Cynthia Desai RN 11/07/24 0700 by Mario Bhatt RN PIV-Single luman 11/05/24; 1511 (daniela sampson via procedure documentation); inadvertently removed; 11/06/24; 199911/05/24 1511 by Juaquin Rueda MD 11/06/241999 by Isabel Hinson RN documented in this encounter Social History Tobacco Use Types Packs/Day Years Used Date Smoking Tobacco: Former Cigarettes 1 29.2 1 977 - 2004 Smokeless Tobacco: Never Alcohol Use Standard Drinks/Week Comments Yes 21 (1 standard drink = 0.6 oz pu re alcohol) [facility] Utilities Answer Date Recorded In the past 12 months has th e [employer], gas, oil, or water company threatened to [...] money to buy more. Never true 11/03/19 Within the past 12 months, t he [...] any time in the past 12 m [facility], were you homeless or living in a assisted (including now)? No 11/03/2024 Sex and Gender Information Value Date Recorded Sex Assigned at Male 09/03/2024 12:21 PM EST Gender Identity Male 09/03/2024 12:21 PM EST Sexual Orientation Heterosexual (straight) 09/10 7:58 AM EST documented as of this encounter Last Filed Vital Signs Vital Sign Reading Time Taken Comments Blood Pressure - - Pulse - - Temperature - - Respiratory Rate 5 11/05/2024 3:16 PM EST Oxygen Saturation 90% 11/05/2024 3:16 PM EST Inhaled Oxygen Concentration - - Weight - - Height - - Body Mass Index - - documented in this encounter OR Notes * Anesthesia Postprocedure Evaluation - Juaquin Rueda MD - 11/08/2024 7:50 AM EST Department of Anesthesiology Post-Anesthesia Evaluation Patient Name: Luca Crowe : 1960 Admission Date: 11/02/2024 Attending Provider: Dallas Camejo MD Date of Service: 11/08/2024 Procedure Summary Date: 11/05/24 Room / Location: [facility] OR Anesthesia Start: 1332 Anesthesia Stop: 1519 Procedure: LEFT BELOW KNEE AMPUTATION (Left: Knee) Diagnosis: Acute osteomyelitis of left calcaneus (HCC) (Acute osteomyelitis of left calcaneus (HCC) [M86.172]) Providers: Dallas Camejo MD Responsible Provider: Juaquin Rueda MD Anesthesia Type: MAC ASA Status: 4 - Emergent Anesthesia Type: MAC No notable events documented. Last vitals Vitals Value Taken Time BP 121/58 11/05/24 1747 Temp 36.2 ??C (97.1 ??F) 11/05/24 1730 Pulse 62 11/05/24 1747 Resp 18 11/05/24 1747 SpO2 96 % 11/05/24 1747 Vitals shown include unfiled device data. Evaluation Vital signs are in the patient's normal range: Yes Respiratory function stable; airway patent: Yes Cardiovascular function and hydration status are stable: Yes Mental status recovered; patient participates in evaluation: Yes Pain control satisfactory: Yes Nausea and vomiting control is satisfactory: Yes This is an OB patient: No Quality Metrics -Multimodal analgesia pain management approach -Opioid medication given during intra or post-procedure care Juaquin Rueda MD 11/08/2024 7:50 AM * Anesthesia Procedure Notes - Juaquin Rueda MD - 11/05/2024 3:11 PM EST Associated Order(s): Peripheral Line Anesthesia Procedure Note - Peripheral IV Placement Patient Name: Luca Crowe : 1960 Patient location: OR Indication(s): surgery, fluid administration, IV medication and vascular access Performed by: Anesthesiologist Juaquin Rueda MD Procedure Preparation Skin prep: alcohol - completely dried prior to procedure Hand hygeine performed prior to needle/catheter insertion Sterile barriers in place: cap, gloves and mask Patient pre-procedure mental status: anesthetized Single lumen tflu-rhw-hpothp catheter system, 20 g, 1/2 in length, in right hand Insertion attempts: 1 * Anesthesia Procedure Notes - Juaquin Rueda MD - 11/05/2024 2:07 PM EST Associated Order(s): Airway Management Anesthesia Procedure Note - LMA insertion Patient Name: Luca Crowe : 1960 Patient location: OR Procedure indications: airway protection Procedure diagnosis: Anesthesia Performed by: Anesthesiologist Juaquin Rueda MD Preanesthetic Checklist monitors and equipment checked. Patient's pre-procedure mental status: awake The patient was sedated prior to procedure. Current level of sedation: general anesthesia Procedure Details Intubation route: oral Intubation method: LMA (igel) 5, blind Number of attempts: 1 Patient status for intubation: sedated and unresponsive Patient position: supine Preoxygenation: BVM Quality of BVM: easy Placement confirmation method: chest rise and ETCO2 monitor Dentition: same as baseline Complications: no complications * Anesthesia Preprocedure Evaluation - Juaquin Rueda MD - 11/05/2024 6:36 AM EST Department of Anesthesiology Pre-Procedure Evaluation Patient Name: Luca Crowe : 1960 Admission Date: 11/02/2024 Attending Provider: Dallas Camejo MD Date of Service: 11/05/2024 Scheduled Procedure: LEFT AMPUTATION BELOW KNEE, Left - Knee Pre-operative Diagnosis: Acute osteomyelitis of left calcaneus (HCC) [M86.172] Relevant Problems ANESTHESIA (+) MERVIN on CPAP Allergies Allergen Reactions Lisinopril Other (See Comments) Dehydration STOP-Bang score not indicated as patient has known MERVIN diagnosis Patient summary reviewed. Nursing notes reviewed. ECG reviewed. Pre-procedure vital signs reviewed. NPO status verified. General History of substance abuse - tobacco Respiratory Positives: sleep apnea on CPAP Cardiovascular Positives: Exercise tolerance: <4 METS Pacemaker procedure BELOW umbilicus - No magnet or reprogramming needed CHF dysrhythmias (AV block s/p pacemaker) hypercholesterolemia hypertension-well controlled valvular problems/murmurs MR peripheral arterial disease peripheral venous disease atrial fibrillation (on Eliquis; s/p watchman 2018) Additional Findings: TATIANNA: pending TTE 11/04/24: ?? The left ventricle is mildly dilated. Left ventricular systolic function is mildly decreased. The quantitative EF is 43% by 3D imaging, and 46% by 2D Martinez biplane. ?? The right ventricle is dilated. Right ventricular systolic function is normal. A pacer wire is present in the right ventricle. ?? Right atrial cavity is severely dilated. A pacemaker wire is present in the right atrium. ?? The mitral leaflets are moderately thickened. There is moderate to severe mitral regurgitation. Cannot rule out vegetation on the mitral valve leaflets. ?? There is moderate tricuspid regurgitation. The estimated right ventricular systolic pressure is 44 mmHg. ?? There is mild aortic regurgitation. ?? The pulmonic valve was not well visualized. ?? Compared to previous outside study report from [facility] on 08/05/2024, Mitral and tricuspid regurgitation were not previously reported. ?? Recommend transesophageal echocardiogram if clinically indicated. Neuromuscular Positives: neuromuscular disease (sciatica): GI/Hepatic/Renal Positives: GERD well controlled PUD chronic renal disease (stage III) CRI weight gain Obesity CRI Endo/MET Positives: diabetes mellitus (A1C 8.7 (09/03/24)) type 2 poorly controlled Hem/Lymph Skel/Skin Positives: osteoarthritis osteomyelitis Additional Findings: S/p right TMA S/p calcaneal ostectomy 08/2024 Psych HE[facility] Obstetrics Other Syndromes Additional Notes 63 y.o. year old male with a PMH significant for atrial flutter/fib, chronic diastolic CHF, diabetes, hypertension, hyperlipidemia, CPAP, PAD, CKD 3, MERVIN on CPAP who presented as direct admit with plans for left BKA on 11/05 secondary to calcaneal osteomyelitis. Cardiology pre-op: From cardiac standpoint patient is moderate risk for the procedure however transthoracic echocardiogram is showing concerns for mitral valve vegetation. - Would recommend obtaining TATIANNA first and postponing the procedure for now - If echocardiogram confirms endocarditis then would need to involve CT surgery as well as EP for assessment of pacemaker evacuation. From the ECG it appears that patient is pacemaker dependent. Physical Exam Airway Mallampati II TM distance >3 FB Neck ROM: full Dentition - no notable dental history normal rate regular rhythm Pulmonary - pulmonary exam normal Abdominal Past Medical History: Diagnosis Date A-fib (HCC) [...] both feet (HCC) PAD (peripheral artery disease) (HCC) Primary osteoarthritis of knee Proteinuria Renal osteodystrophy [...] WOUND VAC; Surgeon: Dallas Camejo MD; [facility]; Service: Orthopaedics; Laterality: Left; FOOT SURGERY Right x5 INCISION AND DRAINAGE FOOT Left OH PROCEDURE MAZE AFIB OSTECTOMY CALCANEOUS Left 09/10/2024 Procedure: ANKLE PARTIAL CALCANECTOMY; Surgeon: Dallas Camejo MD; Location: [facility] OR; Service: Orthopaedics; Laterality: Left; wOUND PARTIALLY CLOSED SUPERFICIALLY, WOUND VAC PLACED TOTAL KNEE ARTHROPLASTY Left 2016 REVISION SAME YEAR/INFECTION No family history on file. Social History Socioeconomic History Marital status: Single [...] at all Food Insecurity: No Food Insecurity (11/03/2024) Hunger Vital Sign Worried About Running Out of Food in the Last Year: Never true Ran Out of Food in the Last Year: Never true Transportation Needs: No Transportation Needs (11/03/2024) PRAPARE - Transportation Lack of Transportation (Medical): No Lack of Transportation (Non-Medical): No Physical Activity: Not on file Stress: Not on file Social Connections: Not on file Housing Stability: Low Risk (11/03/2024) Housing Stability Vital Sign Unable to Pay for Housing in the Last Year: No Number of Times Moved in the Last Year: 0 Homeless in the Last Year: No Ht Readings from Last 1 Encounters: 09/02/24 1.905 m (6' 3 ) Wt Readings from Last 1 Encounters: 11/02/24 120 kg (264 lb 8 oz) Body mass index is 33.96 kg/m??. White Blood Cell Count Date Value Ref Range Status 11/04/2024 13.4 (H) 4.0 - 11.0 Thou/uL Final Hemoglobin Date Value Ref Range Status 11/04/2024 8.7 (L) 13.0 - 17.7 g/dL Final Hematocrit Date Value Ref Range Status 11/04/2024 28.0 (L) 39.0 - 54.0 % Final Platelet Count Date Value Ref Range Status 11/04/2024 326 150 - 450 Thou/uL Final Sodium Date Value Ref Range Status 11/04/2024 130 (L) 136 - 145 mmol/L Final Potassium Date Value Ref Range Status 11/04/2024 3.7 3.4 - 5.3 mmol/L Final CO2 Date Value Ref Range Status 11/04/2024 21 (L) 22 - 33 mmol/L Final Chloride Date Value Ref Range Status 11/04/2024 95 (L) 98 - 107 mmol/L Final POC Glucose Date Value Ref Range Status 11/05/2024 166 (H) 65 - 99 mg/dL Final Blood Urea Nitrogen (BUN) Date Value Ref Range Status 11/04/2024 48 (H) 8 - 21 mg/dL Final Creatinine Date Value Ref Range Status 11/04/2024 2.0 (H) 0.5 - 1.3 mg/dL Final Calcium Date Value Ref Range Status 11/04/2024 7.7 (L) 8.7 - 10.5 mg/dL Final ABO/Rh Date Value Ref Range Status 11/02/2024 A POSITIVE Final INR Date Value Ref Range Status 11/02/2024 1.3 Final Comment: INR Therapeutic Ranges: Standard dose anticoagulant 2.0 to 3.0, High dose anticoagulant 2.5-3.5. 09/13/2024 1.1 Final Comment: INR Therapeutic Ranges: Standard dose anticoagulant 2.0 to 3.0, High dose anticoagulant 2.5-3.5. Partial Thromboplastin Time (PTT) Date Value Ref Range Status 09/13/2024 35 25 - 36 seconds Final Lab Results Component Value Date ABORH A POSITIVE 11/02/2024 Recent Results (from the past 8760 hour(s)) [...] 9 bpm Confirmed by MD Danya, Deep ([id number]) on 11/03/2024 4:30:25 PM NPO Status: Anesthesia Plan ASA Score: ASA 4 - emergent Consent: The anesthetic plan and associated risks was discussed with patient. Anesthesia Plan: MAC anesthesia with a preoperative regional block. The plan was discussed with thefollowing care providers: attending. Post-Operative Pain Management: Post-operative opioids are intended. Routine Analgesia and Antiemetics and Regional Techniques Peripheral Nerve block- Lower: Popliteal Sciatic Nerve block and Femoral Nerve block The preliminary anesthesia plan and risks were discussed. The final anesthesia plan will be determined by the responsible anesthesiologist. Attending Note I personally evaluated and examined the patient prior to the intra-operative phase of care. Glo Ngo PA-C documented in this encounter Plan of Treatment Upcoming Encounters Date Type Department Care Team (Late st Contact Info) Description 12/07/2024 1:30 PM EDT Appointment [facility] [place] - Electrophysiology [address] [place] [phone] Gretel Hinds, VERMIN EXTERMINATOR [address] [phone] 12/14/2024 2:00 PM EDT Office Visit [facility] [phone] Dallas Camejo MD [address] [place], [place] [phone] 12/16/2024 8:30 AM EDT Office Visit [facility] Infectious Disease [address] [place] [phone] Ena Mtz MD [address] [place] [address] documented as of this encounter Procedures Procedure Name Priority Date/Time Associated Diagnosis Comments ANES LINE - PERIPHERAL, SINGLE LUMEN Routine 11/05/2024 3:11 PM EST ANES INTUBATION Routine 11/05/2024 2:07 PM EST documented in this encounter Results * ANES LINE - PERIPHERAL, SINGLE LUMEN (11/05/2024 3:11 PM EST) Narrative Juaquin Rueda MD - 11/05/2024 3:11 PM EST Juaquin Rueda MD ? 11/05/2024 ??3:11 PM Anesthesia Procedure Note - Peripheral IV Placement Patient Name: Luca Crowe : 1960 Patient location: OR Indication(s): surgery, fluid administration, IV medication and vascular access Performed by: Anesthesiologist ? Juaquin Rueda MD ? Procedure Preparation Skin prep: alcohol - completely dried prior to procedure Hand hygeine performed prior to needle/catheter insertion Sterile barriers in place: cap, gloves and mask Patient pre-procedure mental status: anesthetized Single lumen eaja-aak-ftnsyp catheter system, 20 g, 1/2 in length, in right hand Insertion attempts: 1 Juaquin Rueda MD HI ANESTHESIA * ANES INTUBATION (11/05/2024 2:07 PM EST) Narrative Juaquin Rueda MD - 11/05/2024 2:07 PM EST Juaquin Rueda MD ? 11/05/2024 ??2:08 PM Anesthesia Procedure Note - ??LMA insertion Patient Name: Luca Crowe : 1960 Patient location: OR Procedure indications: airway protection Procedure diagnosis: Anesthesia Performed by: Anesthesiologist ? Juaquin Rueda MD ? Preanesthetic Checklist monitors and equipment checked. Patient's pre-procedure mental status: awake The patient was sedated prior to procedure. Current level of sedation: general anesthesia Procedure Details Intubation route: oral Intubation method: LMA (igel) ??5, blind Number of attempts: 1 Patient status for intubation: sedated and unresponsive Patient position: supine Preoxygenation: BVM Quality of BVM: easy Placement confirmation method: chest rise and ETCO2 monitor Dentition: same as baseline Complications: no complications Juaquin Rueda MD HI ANESTHESIA documented in this encounter Visit Diagnoses Not on filedocumented in this encounter Administered Medications Inactive Administered Medications - up to 1 most recent administrations Medication Order MAR Action Action Date Dose Rate Site lactated ringers (LR) infusion Intravenous, Continuous PRN, Starting on Fri11/05/24 at 1340, Anesthesia Intra-op New Bag 11/05/2024 1:40 PM EST fentaNYL 100 MCG/2ML injection Intravenous, As needed, Starting on Fri11/05/24 at 1357, Anesthesia Intra-op Given 11/05/2024 2:05 PM EST 50 mcg ketamine (KETALAR) 10 mg/mL syringe (PREMIX) Intravenous, As needed, Starting on Fri11/05/24 at 1344, Anesthesia Intra-op Given 11/05/2024 1:44 PM EST 10 mg norepinephrine (LEVOPHED) 8 mg in sodium chloride (NS) 0.9 % 250 mL IV infusion Intravenous, Continuous PRN, Starting on Fri11/05/24 at 1341, Anesthesia Intra-op Rate/Dose Change 11/05/2024 2:52 PM EST 2 mcg/min 3.75 mL/hr ondansetron (ZOFRAN) injection Intravenous, As needed, Starting on Fri11/05/24 at 1443, Anesthesia Intra-op Given 11/05/2024 2:43 PM EST 4 mg propofol (diPRIvan) injection Intravenous, As needed, Starting on Fri11/05/24 at 1344, Anesthesia Intra-op Given 11/05/2024 1:44 PM EST 80 mg documented in this encounter 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
--- OUTSIDE RECORDS SUMMARY | 2024-12-02 10:40 | XMS_ITS | Encounter Summary ---
Author Organization [facility] Address [address] [place] [address] Care Team Providers Care Phytopathology Teacher Name Role Phone Lee Fabian MD Primary Care Provider [phone] Vitaliy Fields MD Unavailable [phone] Dallas Camejo MD Unavailable Rolando Lopez MD Unavailable Reason for Visit * Auth/Cert Specialty Diagnoses / Procedures Referred By [place] t Referred To Contact Diagnoses left ankle infection Procedures N/A Referral ID Status Reason Start Date Expiration Date Visits Re quested Visits Authorized [id number] 1 1 Encounter Details Date Type Department Care Team (Late st Contact Info) Description 11/05/2024 12:52 PM EST - 11/05/2024 3:28 PM EST Surgery [facility] [place] at [address] [phone] Dallas Camejo MD [address] [place] [id number] LEFT BELOW KNEE AMPUTATION Social History Tobacco Use Types Packs/Day Years Used Date Smoking Tobacco: Former Cigarettes 1 29.2 1 977 - 2003 Smokeless Tobacco: Never Alcohol Use Standard Drinks/Week Comments Yes 21 (1 standard drink = 0.6 oz pu re alcohol) [facility] Utilities Answer Date Recorded In [...] any time in the past 12 [facility], were you homeless or living in a usp (including now)? No 11/03/2024 Sex and Gender Information Value Date Recorded Sex Assigned at Male 09/03/2024 12:21 PM EST Gender Identity Male 09/03/2024 12:21 PM EST Sexual Orientation Heterosexual (straight) 09/10 7:58 AM EST documented as of this encounter Last Filed Vital Signs Vital Sign Reading Time Taken Comments Blood Pressure 108/53 11/05/2024 3:25 PM EST Pulse 48 11/05/2024 3:25 PM EST Temperature 36.4 ??C (97.6 ??F) 11/05/2024 3:25 PM ES T Respiratory Rate 17 11/05/2024 3:25 PM EST Oxygen Saturation 90% 11/05/2024 3:25 PM EST Inhaled Oxygen Concentration - - Weight 120 kg (264 lb 8 oz) 11/02/2024 9:[address] Height - - Body Mass Index 27.06 11/09/2024 7:57 AM [...] MD (Surgery, Cardiac) Daisy Her PT as Electronic Warfare Technician (Physical Medicine and Rehabilitation) PRIMARY DISCHARGE DIAGNOSIS [...] regurgitation (POA: Unknown) Resolved Problems: DISCHARGE DISPOSITION Jail Facility Code Status Procedures Full code . [...] Routine Referral Type: Home Health Referral Location: [facility] [...] Department Center 12/07/2024 1:30 PM ROOM, ICD/PACER/LOOP [facility] ARRHY [facility] Arrhythmi 12/15/2024 10:45 AM Alba Ramos MD [id number] PM&r 12/16/2024 8:30 AM Ena Mtz MD [...] PAD, RLS and CKD3 that presents to [facility] inpatient floor as a direct admit under [...] while on IV antibiotics. Fax results to [phone] 4. Patient will need to be scheduled [...] Case IDs Date Procedure Surgeon Location Status [id number] 11/05/24 LEFT BELOW KNEE AMPUTATION Dallas Camejo MD [facility] OR Comp [id number] 11/17/24 Extraction lead(s) laser from dual PM system; [id number] Rui Pabon MD Main OR Comp [id number] 11/19/24 CVC INSERT (TUNNEL)W/O PORT > 5 YRS Devon Vogt DO IR Comp Diagnostic Studies: XR Foot 1 view-Left Result Date: 11/02/2024 This exam was performed in office at [facility] and images reviewed by orthopedic provider. [...] Device Extraction Discharge Instructions Important phone numbers: Technologist Development/Surgeon???s office: [phone] (8am-4:30pm Fri - Friday Our answering service [...] If it does not stop, go to [facility] ER or walk-in center. If you experience any of the above, call your surgeon/bilingual executive assistant???s office immediately. If still present, remove the [...] Report any of these symptoms to your bilingual executive assistant. Call your primary reception manager if you experience any of the following: [...] Discharge Instructions Important phone numbers: [facility]: [phone] (8am-4:30pm Fri-Friday) Technologist Development/Surgeon???s office: [phone] (8am-4:30pm Fri -Friday) Our answering service is [...] experience any of the above, call your bilingual executive assistant???s office immediately It is normal to have [...] dental procedure. You should call your primary reception manager if you experience any of the following: [...] when you get home. If your primary reception manager???s office will monitor your pacemaker, please call [...] Continuous Glucose Sensor (FreeStyle Wallace 3 Sensor) [facility] [place]JECT 1 DEVICE INTO THE SKIN EVERY [...] Juany Ospina RN - 11/25/2024 7:51 PM Trvais: Nurse Navigator Note 11/26/24 1210 Transition Call Pain level 5 How well is pain controlled? Well controlled Discharged medications reviewed with patient? Yes Are you taking meds as prescribed? Yes Do you have any questions or concerns about your medication? Yes (Asked about why he only has IV meds to get him through the weekend - advised to call [facility] - phone number on pg 5 [...] Plan Plan Home w/family and [facility] Patient/Family in Agreement with Plan yes Final Discharge Disposition Code 06 - home with home health care Final Case Management Care Plan Note Summary: Per provider, patient is medically ready to transition home with services. Confirmed that patient is able to obtain medications/food/necessities post discharge. Patient now refusing HSC (LTACH) and returning home with son, [facility] for IV abx and [facility]. Final Destination: Home with son and [facility] Plan for home support/Caregiver/responsible person: Son and [facility] Follow-up provider appointment: Per AVS/W-10 Equipment Ordered [...] level of independence with self-care tasks. Current [facility] Daily Activity Score: 18 Precautions/Restrictions: aspiration, fall, [...] in recliner, in NAD on RA, agreeable. Pharmaceutical Laboratory Technician + limb protector donned to LLE Pain Assessment Pre/Posttreatment Pain Comment denied pain Coping Observed Emotional State calm;cooperative Safety Safety WDL WDL Progressive Mobility Progressive Mobility Level Achieved Transferring to Chair [facility] Daily Activity Putting on and taking off Lower Body Clothing? 3 Bathing (including washing/rinsing/drying)? 2 Toileting (includes using toilet, bedpan, or urinal)? 2 Putting on and taking off upper body clothing? 3 Taking care of personal grooming such as brushing teeth? 4 Eating meals? 4 [facility] Daily Activity Score 18 Progress Summary (OT) Progress Toward Functional Goals (OT) progress toward functional goals is good Sign: Christen Tapia OT * Aditi Jones PA-C - 11/25/2024 11:50 AM EST PHYSICAL MEDICINE & REHABILITATION CONSULT FOLLOW-UP NOTE Patients Name: Blas Genao : 1960 MR Number: [id number] Reason for Consultation: Amputee rehab needs Date [...] acute CHFmrEF, pain. He is NWB to E. Rehab Diagnosis: s/p left BKA Amputation: 05.4 [...] tolerance to therapy and plan for manager occupational antibiotics. He mayhave ability to progress to [...] 975 mg 975 mg Oral Q6H PRN oCrbin Lamb APRN amiODARONE (PACERONE) tablet 200 mg [...] 100 mL IVPB-MBP 2 g Intravenous Q24H LavanyaRobtendranath, MD 200 mL/hr at 11/25/24 1113 2 g [...] injection 5,000 Units 5,000 Units Subcutaneous Q8H [facility] Gianluca Calles MD 5,000 Units at 11/25/24 0931 insulin glargine (LANtus/SEMGLEE) 100 units/mL injection 10 Units 10 Units Subcutaneous Daily Corbin Lamb APRN 10 Units at 11/25/24 0933 insulin lispro (HumaLOG/ADMELOG) 100 units/mL injection 1-6 Units 1-6 Units Subcutaneous TID with meals Corbin Lealese, WINDOW FRAMER 1 Units at 11/25/24 0900 insulin lispro (HumaLOG/ADMELOG) 100 units/mL injection 3 Units 3 Units Subcutaneous TID with mealsNicola Adonis, WINDOW FRAMER 3 Units at 11/25/24 0905 ipratropium-albuterol (DUONEB) 0.5-2.5 mg/3 mL nebulizer solution 3 mL 3 mL Nebulization Q2H PRN Corbindenise Lamb, WINDOW FRAMER 3 mL at 11/07/24 1025 lactulose (ENULOSE) 10 gm/15 mL solution 20 g 20 g Oral Q4H PRN Corbindenise Lamb, WINDOW FRAMER melatonin tablet 3 mg 3 mg Oral Nightly PRN Corbindenise Lamb, WINDOW FRAMER 3 mg at 11/19/24 2222 methocarbamol (ROBAXIN) tablet 1,000 mg 1,000 mg Oral 4x Daily Corbin Adonis, WINDOW FRAMER 1,000 mg at 11/25/24 0934 metoPROLOL TARTRATE (LOPRESSOR) tablet 50 mg 50 mg Oral BID Corbin Adonis, WINDOW FRAMER 50 mg at 11/25/24 0935 multivitamin with minerals tablet 1 tablet 1 tablet Oral Daily Corbin Adonis, WINDOW FRAMER 1 tablet at 11/25/24 0935 naloxone (NARCAN) 0.4 mg/mL injection 0.4 mg 0.4 mg Intravenous Q5 Min PRN Corbin Adonis, WINDOW FRAMER naloxone (NARCAN) 0.4 mg/mL injection 0.4 mg 0.4 mg Intravenous Q5 Min PRN Corbin Adonis, WINDOW FRAMER nicotine (NICODERM CQ) 21 MG/24HR patch 1 patch 1 patch Transdermal Daily Corbin Adonis, WINDOW FRAMER 1 patch at 11/25/24 0930 ondansetron (ZOFRAN) injection 4 mg 4 mg Intravenous Q6H PRN Corbin Adonis, WINDOW FRAMER 4 mg at 11/17/24 1639 PANTOprazole (PROTONIX) EC tablet 40 mg 40 mg Oral Daily Corbin Adonis, WINDOW FRAMER 40 mg at 11/25/24 0935 polyethylene glycol (miraLAx) packet 17 g 17 g Oral Daily Corbin Adonis, WINDOW FRAMER 17 g at 11/25/24 0932 [Provider Held] pravastatin (PRAVACHOL) tablet 20 mg 20 mg Oral Daily Corbin Adonis WINDOW FRAMER pregabalin (LYRICA) capsule 100 mg 100 mg Oral TID Corbin Adonis, WINDOW FRAMER 100 mg at 11/25/24 0935 senna-docusate (SENNA-S) 8.6-50 MG tablet 2 tablet 2 tablet Oral BID Corbin Adonis, WINDOW FRAMER 2 tablet at 11/25/24 0936 thiamine mononitrate (VITAMIN B-1) tablet 200 mg 200 mg Oral Daily Corbin Adonis, WINDOW FRAMER 200 mg at11/25/24 0934 Physical Exam: Vitals: [...] S/p Left BKA with ampushield and 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 Plan of Care Patient's plan of care [...] from nurse navigator within 24-[facility] progress and/or any concerns. Confirmed [...] while on IV antibiotics. Fax results to [phone] 4. Patient will need to be scheduled [...] today. Upon arrival he had a steam brush operator in the room with him.Waited outside for 20 minutes before moving on to other patients. Will attempt to meet with patientagain later this week to review stoplight previously provided. * Ena Mtz MD - 11/24/2024 11:24 AM EST Images from the original note were not included. [facility] INFECTIOUS DISEASE Consult progress Note Name: [...] while on IV antibiotics. Fax results to [phone] 4. Patient will need to be scheduled for repeat TATIANNA end of November. Patient would like to get this done at [facility] He can follow-up with me on [...] 0849 Sign Ena Mtz MD, FACP, CWSP [facility] Available via GetApp SUBJECTIVE Remains in the hospital awaiting placement [...] not compromised. This report was generated using [employer] Speaking dictation software. Although every attempt has [...] MD 11/23/2024 3:06 PM * Milan Vale, LAST CHALKER - 11/23/2024 2:03 PM EST Physical Therapy [...] level of independence with functional mobility. Current [facility] Basic Mobility Score: (P) 18 Rehab Plan [...] upon arrival, RN in room. Ampushield and agile scrum master inplace. Both agreeable for tx Existing Precautions/Restrictions [...] Progressive Mobility Progressive Mobility Level Achieved Ambulation [facility] Basic Mobility Turning from your back to [...] Climbing 3-5 steps with a railing? 1 [facility] Basic Mobility Score 18 Therapy Assessment/Plan (PT) [...] AM EST Nocturnal Oximetry Report Patient Name BLSA GENAO 1960 Patient Study Completed On: 11/23/24 [...] c/w Jardiance - regarding the question of usp PICC for Abx, patient high risk for PICC and proline placed instead on 11/19/24 - Patient should follow up with his outpatient duct layer supervisor on discharge and get repeat lab work [...] found for: TACROLIMUS No results found for: [id number] , TOTVOL , CRCLR , PERIOD No [...] mcg, PO, Daily Given, 2,[address] [place] [address] DAPTOmycin (CUBICIN) 975 mg in sodium chloride [...] with meals Given, 3 Units at 11/22 173 methocarbamol (ROBAXIN) tablet 1,000 mg 1,000 mg, [...] Sign: Isabel Lee PA-C 11/23/2024 7:24 AM [facility] Nephrology Office [phone] Associated attestation - Anmol Reynoso MD - [...] - Patient can follow-up with his outpatient duct layer supervisor upon discharge. Sign: Anmol Reynoso MD 11/23/2024 2:54 PM * Luz Escobedo RN - 11/22/2024 2:40 PM EST Attached media from the original note were not included. Micra AV leadless Pacemaker evaluation completed on B10E. Per patient request and verbal order SharronSHUBHAM Pitts: LRL increased from 50 bpm to 60 bpm. Presenting rhythm: AM/PEELER OPERATOR @ 62 bpm. Underlying rhythm: CHB. AM/PEELER OPERATOR pacing 81%, with total V-pacing 100%. Battery [...] Calles MD 11/22/2024 12:20 PM * Christen Tapia, OT - 11/22/2024 10:01 AM EST Occupational [...] level of independence with self-care tasks. Current [facility] Daily Activity Score: 16 Precautions/Restrictions: aspiration, fall, [...] Progressive Mobility Progressive Mobility Level Achieved Ambulation [facility] Daily Activity Putting on and taking off Lower Body Clothing? 3 Bathing (including washing/rinsing/drying)? 2 Toileting (includes using toilet, bedpan, or urinal)? 2 Putting on and taking off upper body clothing? 3 Taking care of personal grooming such as brushing teeth? 3 Eating meals? 3 [facility] Daily Activity Score 16 Progress Summary (OT) [...] c/w Jardiance - regarding the question of usp PICC for Abx, patient high risk for [...] found for: TACROLIMUS No results found for: [id number] , TOTVOL , CRCLR , PERIOD No [...] TOP, Daily Given, No Dose/Rate at 11/21 0919 cholecalciferol tablet 2,000 Units 2,000 Units, PO, [...] mg, PO, Daily Given, 200 mg at 02/24 0821 PRN Medication Ordered Dose/Rate, Route, Frequency [...] Sign: Anmol Reynoso MD 11/22/2024 9:34 AM [facility] Nephrology Office [phone] * Roberto Carranza, LAST CHALKER - 11/22/2024 8:46 AM EST Physical Therapy [...] level of independence with functional mobility. Current [facility] Basic Mobility Score: 16 Rehab Plan of [...] Progressive Mobility Level Achieved Transferring to Chair [facility] Basic Mobility Turning from your back to [...] Climbing 3-5 steps with a railing? 1 [facility] Basic Mobility Score 16 Therapy Assessment/Plan (PT) [...] from the original note were not included. [facility] PROGRESS NOTE Outpatient Aluminum Pourer: [facility] Assessment & Plan Assessment 63 year old male with hypertension, hyperlipidemia, diabetes, CKD stage III, peripheral artery disease, diabetes, foot infection with osteomyelitis, complete heart block s/p dual chamber pacemaker [id number], atrial fibrillation s/p multiple ablations and cardioversions [...] with meals Given, 950 mg at 11/21 1713 cefTRIAXone (ROCEPHIN) 2 g in sodium chloride-MBP [...] Q8H JUDSON Given, 5,000 Units at 11/22 143 insulin glargine (LANtus/SEMGLEE) 100 units/mL injection 10 [...] by 8 bpm Confirmed by MD Claude, [facility] ([id number]) on 11/07/2024 6:25:53 PM TATIANNA [...] Compared to previous outside study report from [facility] on 08/05/2024, Mitral and tricuspid regurgitation were not previously reported. Recommend transesophageal echocardiogram if clinically indicated. Brain MRI 11/12/2024 No acute intracranial findings or suspicious intracranial lesions. No septic emboli. All additional appropriate imaging studies within the past 24 hours reviewed - images reviewed and independently interpreted. Sign Gema Jane APRN [facility] [place] 11/22/2024 8:19 AM * Jose Adair MD [...] Current Medications: acetaminophen, 975 mg, Oral, Q6H [facility] amiODARONE, 200 mg, Oral, Daily amLODIPine, 5 [...] found for: TACROLIMUS No results found for: [id number] , TOTVOL , CRCLR , PERIOD No [...] posterior to mitral valve annulus adjacent to Watchmandevice. He has received various antibiotics including ceftaroline, meropenem, aztreonam and is now m aintained on daptomycin monotherapy. Remains afebrile and white [...] Calles MD - 11/20/2024 11:43 AM EST [facility] PROGRESS NOTE [...] MD 11/20/2024 11:44 AM * Elsy Coronel, WINDOW FRAMER - 11/20/2024 9:23 AM EST Inpatient Nephrology [...] found for: TACROLIMUS No results found for: [id number] , TOTVOL , CRCLR , PERIOD No results found for: IRON , TIBC , IRONSAT , UIBC Lab Results Component Value Date BILITOT 0.2 11/17/2024 AST 24 11/17/2024 Signed: Elsy Coronel APRN 11/20/2024 9:23 AM Associated attestation - Jose Adair MD - 11/20/2024 6:31 PM EST ATTESTATION: This encounter was done in conjunction with [employer]. I provided the substantive portion of thevisit [...] from the original note were not included. [facility] INFECTIOUS DISEASE Consult progress Note Name: [...] while on IV antibiotics. Fax results to [phone] 4. Patient will need to be scheduled for repeat TATIANNA end of November Patient would like to follow-up with infectious disease close to home. I have communicated with Dr. Saritha Coffey office (infectious disease) at [phone]. She stated that this patient is very complicated for [facility] and she will not be following this patient He can follow-up with me in my office in 3 to 4 weeks. I would recommend that he be scheduled for repeat TATIANNA end of November at here at [facility] Current antibiotic/day of therapy: Anti-infectives (From [...] 0849 Sign Ena Mtz MD, FACP, CWSP [facility] Infectious Diseases Available via GetApp SUBJECTIVE Afebrile, status post AICD extraction CURRENT MEDICATIONS: Reviewed OBJECTIVE PHYSICAL EXAMINATION: Vitals: 11/19/24 0500 11/19/24 0815 11/19/24 1018 11/19/24 1224 BP: 139/60 (!) 111/53 (!) 104/51 BP Location: Right arm Right arm Right arm Patient Position: Lying Lying Lying Pulse: (!) 58 (!) 58 (!) 51 Resp: 18 18 Temp: 97 ??F (36.1 ??C) [...] care and coordination of care with his [id number] infectious disease physician and office Of note, some information is being carried forward from prior records for informational purposes only and is being cited so that efficiency, safety and quality of this patient's care is not compromised. This report was generated using [employer] Speaking dictation software. Although every attempt has [...] left stoplight for his review and will venetie back next week to review with the patient. * Valencia Lau APRN - 11/19/2024 8:02 AM EST Images from the original note were not included. [facility] PROGRESS NOTE Outpatient Aluminum Pourer: [facility] Assessment & Plan Assessment 63 year old male with hypertension, hyperlipidemia, diabetes, CKD stage III, peripheral artery disease, diabetes, foot infection with osteomyelitis, complete heart block s/p dual chamber pacemaker [id number], atrial fibrillation s/p multiple ablations and cardioversions [...] Q6H JUDSON Given, 975 mg at 11/18 211 amiODARONE (PACERONE) tablet 200 mg 200 mg, PO, Daily Given, 200 mg at 11/18 1030 amLODIPine (NORVASC) tablet 10 mg 10 mg, PO, Daily Given, 10 mg at 11/18 1029 bumetanide (BUMEX) injection 1 mg 1 mg, IV, Q24H Given, 1 mg at 11/18 1103 buPROPion (WELLBUTRIN SR) 12 hr tablet 150 mg 150 mg, PO, BID Given, 150 mg at 11/18 2118 calcium citrate (CALCITRATE) tablet 950 mg 950 [...] injection 5,000 Units On hold since Fri11/16/2024 [id number] until manually unheld; held by Herberth Whitmore [...] Daily Given, 200 mg at 11/18 103 PRN Medication Ordered Dose/Rate, Route, Frequency Last [...] by 8 bpm Confirmed by MD Claude, [facility] ([id number]) on 11/07/2024 6:25:53 PM TATIANNA [...] Compared to previous outside study report from [facility] on 08/05/2024, Mitral and tricuspid regurgitation were not previously reported. Recommend transesophageal echocardiogram if clinically indicated. Brain MRI 11/12/2024 No acute intracranial findings or suspicious intracranial lesions. No septic emboli. All additional appropriate imaging studies within the past 24 hours reviewed - images reviewed and independently interpreted. Sign Valencia Lau APRN [facility] [place] 11/19/2024 8:54 AM * Lela Amor MD [...] interrogation ordered for post- OP. Presenting rhythm: AM-PEELER OPERATOR @ 69 bpm. Underlying rhythm: No ventricular response greater than 40 bpm. AM-PEELER OPERATOR @ 84.8%. Battery and device parameters evaluated [...] following is my assessment: Reason For Order: Hand Worker Orders Ordered Cardiac monitoring / telemetry Until [...] Name: Blas Genao : 1960 MR Number: [id number] Reason for Consultation: Rehabilitation potential Date of [...] acute CHFmrEF, pain. He is NWB to [facility]. Rehab Diagnosis: s/p left BKA Amputation: [...] support, tolerance to therapy and plan for [facility] antibiotics. Will follow progress with therapy. Sleep: [...] tablet 975 mg 975 mg Oral Q6H [facility] Corbin Lamb WINDOW FRAMER 975 mg at 026 acetaminophen (TYLENOL) tablet 975 mg 975 mg Oral Q6H PRN Corbin Lamb WINDOW FRAMER amiODARONE (PACERONE) tablet 200 mg 200 mg Oral Daily Corbin Lamb WINDOW FRAMER 200 mg at 11/18/24 1030 amLODIPine (NORVASC) tablet 10 mg 10 mg Oral Daily Corbin Lamb WINDOW FRAMER 10 mg at 11/18/24 1029 benzocaine-menthol (CHLORASEPTIC) 6-10 MG lozenge 1 lozenge 1 lozenge Mouth/Throat Q2H PRN RoseslamleRoxanna Hinds, WINDOW FRAMER bisacodyl (DULCOLAX) suppository 10 mg 10 mg Rectal Daily PRN Corbin Lamb APRN bumetanide (BUMEX) injection 1 mg 1 mg Intravenous Q24H Corbin Lamb WINDOW FRAMER 1 mg at 11/18/24 1103 buPROPion (WELLBUTRIN SR) 12 hr tablet 150 mg 150 mg Oral BID Corbin Lamb WINDOW FRAMER 150 mg at 11/18/24 1028 calcium carbonate (TUMS) chewable tablet 1,000 mg 1,000 mg Oral Q12H PRN Corbin Lamb WINDOW FRAMER calcium citrate (CALCITRATE) tablet 950 mg 950 mg Oral BID with meals Corbin Lamb APRN 950 mgat 11/18/24 1105 carboxymethylcellulose (REFRESH PLUS) 0.5 % ophthalmic solution 2 drop 2 drop Each Eye Q2H PRN Gretel Hinds APRN cefTRIAXone (ROCEPHIN) 2 g in sodium chloride-MBP (NS) 100 mL IVPB-MBP 2 g Intravenous Q24H MD Dylan 200 mL/hr at 11/18/24 1235 2 g at 11/18/24 1235 chlorhexidine gluconate 2 % wipes - urethral catheter CHG application Topical Daily Corbin Lamb WINDOW FRAMER Given at 11/18/24 1031 cholecalciferol tablet 2,000 Units 2,000 Units Oral Daily Corbin Lamb, WINDOW FRAMER 2,000 Units at 11/18/24 1103 cyanocobalamin (VITAMIN B-12) tablet 2,500 mcg 2,500 mcg Oral Daily Corbin Lamb WINDOW FRAMER 2,500 mcg at 11/18/24 1027 DAPTOmycin (CUBICIN) 975 mg in sodium chloride (NS) 0.9 % 50 mL IVPB 10 mg/kg (Adjusted) Intravenous Q24H Corbin Lamb WINDOW FRAMER 0 mL/hr at 11/16/24 1712 975 mg at 11/17/24 1420 donepezil (ARICEPT) tablet 10 mg 10 mg Oral QAM Corbin Lamb WINDOW FRAMER 10 mg at 11/18/24 1105 [Provider Held] empagliflozin (JARDIANCE) 25 mg 25 mg Oral Daily Corbin Lamb, WINDOW FRAMER 25 mg at 11/04/24 0756 folic acid (FOLVITE) tablet 1 mg 1 mg Oral Daily Corbin Lamb WINDOW FRAMER 1 mg at 11/18/24 1028 [Provider Held] glimepiride (AMARYL) tablet 2 mg 2 mg Oral Daily with breakfast Corbin Lamb WINDOW FRAMER 2 mg at 11/04/24 0757 [Provider Held] heparin (porcine) 5000 unit/mL injection 5,000 Units 5,000 Units Subcutaneous Q8H [facility] Corbin Lamb WINDOW FRAMER 5,000 Units at 11/16/24 1714 HYDROmorphone (DILAUDID) tablet 2 mg 2 mg Oral Q3H PRN Corbindenise Lamb, WINDOW FRAMER 2 mg at 11/18/24 1030 HYDROmorphone (DILAUDID) tablet 4 mg 4 mg Oral Q3H PRN Corbin Adonis, WINDOW FRAMER 4 mg at 11/16/24 2213 insulin glargine (LANtus/SEMGLEE) 100 units/mL injection 10 Units 10 Units Subcutaneous Daily Corbindenise Lamb, WINDOW FRAMER 10 Units at 11/18/24 1032 insulin lispro (HumaLOG/ADMELOG) 100 units/mL injection 1-6 Units 1-6 Units Subcutaneous TID with meals Corbin Adonis, WINDOW FRAMER 3 Units at 11/18/24 1232 insulin lispro (HumaLOG/ADMELOG) 100 units/mL injection 3 Units 3 Units Subcutaneous TID with mealsNiccarmen Lamb, WINDOW FRAMER 3 Units at 11/18/24 1232 ipratropium-albuterol (DUONEB) 0.5-2.5 mg/3 mL nebulizer solution 3 mL 3 mL Nebulization Q2H PRN Corbindenise Lamb, WINDOW FRAMER 3 mL at 11/07/24 1025 lactulose (ENULOSE) 10 gm/15 mL solution 20 g 20 g Oral Q4H PRN Corbin Lamb, WINDOW FRAMER melatonin tablet 3 mg 3 mg Oral Nightly PRN Corbindenise Lamb, WINDOW FRAMER 3 mg at 11/16/24 2215 methocarbamol (ROBAXIN) tablet 1,000 mg 1,000 mg Oral 4x Daily Corbindenise Lamb, WINDOW FRAMER 1,000 mg at 11/18/24 1105 metoPROLOL TARTRATE (LOPRESSOR) tablet 50 mg 50 mg Oral BID Corbin Adonis, WINDOW FRAMER 50 mg at 11/18/24 1031 multivitamin with minerals tablet 1 tablet 1 tablet Oral Daily Corbindenise Lamb, WINDOW FRAMER 1 tablet at 11/18/24 1028 naloxone (NARCAN) 0.4 mg/mL injection 0.4 mg 0.4 mg Intravenous Q5 Min PRN Corbindenise Lamb WINDOW FRAMER naloxone (NARCAN) 0.4 mg/mL injection 0.4 mg 0.4 mg Intravenous Q5 Min PRN Corbin Adonis, WINDOW FRAMER nicotine (NICODERM CQ) 21 MG/24HR patch 1 patch 1 patch Transdermal Daily Corbin Adonis, WINDOW FRAMER 1 patch at 11/18/24 1030 ondansetron (ZOFRAN) injection 4 mg 4 mg Intravenous Q6H PRN Corbin Adonis, WINDOW FRAMER 4 mg at 11/17/24 1639 PANTOprazole (PROTONIX) EC tablet 40 mg 40 mg Oral Daily Corbin Adonis, WINDOW FRAMER 40 mg at 11/18/24 1029 polyethylene glycol (miraLAx) packet 17 g 17 g Oral Daily Corbin Adonis, WINDOW FRAMER 17 g at 11/18/24 1040 [Provider Held] pravastatin (PRAVACHOL) tablet 20 mg 20 mg Oral Daily Corbin Adonis, WINDOW FRAMER pregabalin (LYRICA) capsule 100 mg 100 mg Oral TID Corbin Adonis, WINDOW FRAMER 100 mg at 11/18/24 1105 senna-docusate (SENNA-S) 8.6-50 MG tablet 2 tablet 2 tablet Oral BID Corbin Adonis, WINDOW FRAMER 2 tablet at 11/18/24 1032 thiamine mononitrate (VITAMIN B-1) tablet 200 mg 200 mg Oral Daily Corbin Adonis, WINDOW FRAMER 200 mg at11/18/24 1031 Physical Exam: Vitals: [...] S/p Left BKA with ampushield and stump agile scrum master C/D/I Skin: No skin breakdown to exposed [...] interrogation ordered for post- OP. Presenting rhythm: AM-PEELER OPERATOR @ 69 bpm. Underlying rhythm: No ventricular response greater than 40 bpm. AM-PEELER OPERATOR @ 84.8%. Battery and device parameters evaluated [...] from the original note were not included. [facility] INFECTIOUS DISEASE Consult progress Note Name: [...] try to reach Dr. Saritha Coffey at [facility] tomorrow Current antibiotic/day of therapy: Anti-infectives [...] 0849 Sign Ena Mtz MD, FACP, CWSP [facility] Infectious Diseases Available via GetApp SUBJECTIVE Afebrile, status post AICD extraction CURRENT [...] not compromised. This report was generated using [employer] Speaking dictation software. Although every attempt has been made by the provider to proofread this document, occasional misspellings and typographical errors may still be present. * Valencia Lau APRN - 11/18/2024 8:48 AM EST Images from the original note were not included. [facility] PROGRESS NOTE Outpatient Aluminum Pourer: [facility] Assessment & Plan Assessment 63 year old male with hypertension, hyperlipidemia, diabetes, CKD stage III, peripheral artery disease, diabetes, foot infection with osteomyelitis, complete heart block s/p dual chamber pacemaker [id number], atrial fibrillation s/p multiple ablations and cardioversions [...] Q6H JUDSON Given, 650 mg at 11/18 304 amiODARONE (PACERONE) tablet 200 mg 200 mg, [...] injection 5,000 Units On hold since Fri11/16/2024 [id number] until manually unheld; held by Herberth Whitmore [...] Q3H PRN Given, 4 mg at 11/16 221 ipratropium-albuterol (DUONEB) 0.5-2.5 mg/3 mL nebulizer solution [...] by 8 bpm Confirmed by MD Claude, [facility] ([id number]) on 11/07/2024 6:25:53 PM TATIANNA [...] Compared to previous outside study report from [facility] on 08/05/2024, Mitral and tricuspid regurgitation were not previously reported. Recommend transesophageal echocardiogram if clinically indicated. Brain MRI 11/12/2024 No acute intracranial findings or suspicious intracranial lesions. No septic emboli. All additional appropriate imaging studies within the past 24 hours reviewed - images reviewed and independently interpreted. Sign Valencia Lau APRN [facility] [place] 11/18/2024 8:48 AM * Cristina Rodriguez APRN [...] Department Center 12/07/2024 1:30 PM ROOM, ICD/PACER/LOOP [facility] ARRHY [facility] Arrhythmi Current Facility-Administered Medications: acetaminophen (TYLENOL) tablet 975 mg, 975 mg, Oral, Q6H JUDSON, Corbin Adonis, WINDOW FRAMER, 650 mg at 11/18/24 0305 acetaminophen (TYLENOL) tablet 975 mg, 975 mg, Oral, Q6H PRN, Corbin Adonis, WINDOW FRAMER amiODARONE (PACERONE) tablet 200 mg, 200 mg, Oral, Daily, Corbin Adonis, WINDOW FRAMER, 200 mg at 11/17/24 0813 amLODIPine (NORVASC) tablet 10 mg, 10 mg, Oral, Daily, Corbin Adonis, WINDOW FRAMER, 10 mg at 11/17/24 0816 benzocaine-menthol (CHLORASEPTIC) 6-10 MG lozenge 1 lozenge, 1 lozenge, Mouth/Throat, Q2H PRN, Gretel Hinds, WINDOW FRAMER bisacodyl (DULCOLAX) suppository 10 mg, 10 mg, Rectal, Daily PRN, Corbin Adonis, WINDOW FRAMER bumetanide (BUMEX) injection 1 mg, 1 mg, Intravenous, Q24H, Corbin Adonis, WINDOW FRAMER, 1 mg at 11/17/24 0813 buPROPion (WELLBUTRIN SR) 12 hr tablet 150 mg, 150 mg, Oral, BID, Corbin Adonis, WINDOW FRAMER, 150 mg at11/17/24 2125 calcium carbonate (TUMS) chewable tablet 1,000 mg, 1,000 mg, Oral, Q12H PRN, Corbin Adonis, WINDOW FRAMER calcium citrate (CALCITRATE) tablet 950 mg, 950 mg, Oral, BID with meals, Corbin Adonis, WINDOW FRAMER, 950 mg at 11/17/24 0813 carboxymethylcellulose (REFRESH PLUS) 0.5 % ophthalmic solution 2 drop, 2 drop, Each Eye, Q2H PRN, Gretel Hinds, WINDOW FRAMER chlorhexidine gluconate 2 % wipes - urethral catheter CHG application, , Topical, Daily, Corbin Adonis, WINDOW FRAMER cholecalciferol tablet 2,000 Units, 2,000 Units, Oral, Daily, Corbin Adonis, WINDOW FRAMER, 2,000 Units at 11/17/24 0815 cyanocobalamin (VITAMIN B-12) tablet 2,500 mcg, 2,500 mcg, Oral, Daily, Corbin Adonis, WINDOW FRAMER, 2,500 mcg at 11/17/24 0814 DAPTOmycin (CUBICIN) 975 mg in sodium chloride (NS) 0.9 % 50 mL IVPB, 10 mg/kg (Adjusted), Intravenous, Q24H, Corbin Adonis, WINDOW FRAMER, Last Rate: 0 mL/hr at 11/16/24 1712, 975 mg at 11/17/24 1420 donepezil (ARICEPT) tablet 10 mg, 10 mg, Oral, QAM, Corbin Adonis, WINDOW FRAMER, 10 mg at 11/17/24 0816 [Provider Held] empagliflozin (JARDIANCE) 25 mg, 25 mg, Oral, Daily, Corbin Adonis, WINDOW FRAMER, 25 mg at 11/04/24 0756 folic acid (FOLVITE) tablet 1 mg, 1 mg, Oral, Daily, Corbin Adonis, WINDOW FRAMER, 1 mg at 11/17/24 0813 [Provider Held] glimepiride (AMARYL) tablet 2 mg, 2 mg, Oral, Daily with breakfast, Corbin Lamb, WINDOW FRAMER, 2 mg at 11/04/24 0757 [Provider Held] heparin (porcine) 5000 unit/mL injection 5,000 Units, 5,000 Units, Subcutaneous, Q8H JUDSON, Corbindenise Lamb, WINDOW FRAMER, 5,000 Units at 11/16/24 1714 HYDROmorphone (DILAUDID) tablet 2 mg, 2 mg, Oral, Q3H PRN, Corbindenise Lamb, WINDOW FRAMER, 2 mg at HYDROmorphone (DILAUDID) tablet 4 mg, 4 mg, Oral, Q3H PRN, Corbin Adonis, WINDOW FRAMER, 4 mg at 213 insulin glargine (LANtus/SEMGLEE) 100 units/mL injection 10 Units, 10 Units, Subcutaneous, Daily, Corbin Lamb WINDOW FRAMER insulin lispro (HumaLOG/ADMELOG) 100 units/mL injection 1-6 Units, 1-6 Units, Subcutaneous, TID with meals, Corbin Adonis, WINDOW FRAMER, 1 Units at 11/17/24 1856 insulin lispro (HumaLOG/ADMELOG) 100 units/mL injection 3 Units, 3 Units, Subcutaneous, TID with meals, Corbin Lamb, WINDOW FRAMER, 3 Units at 11/17/24 1213 ipratropium-albuterol (DUONEB) 0.5-2.5 mg/3 mL nebulizer solution 3 mL, 3 mL, Nebulization, Q2H PRN, Corbin Lamb, WINDOW FRAMER, 3 mL at 11/07/24 1025 lactulose (ENULOSE) 10 gm/15 mL solution 20 g, 20 g, Oral, Q4H PRN, Corbin Lamb, WINDOW FRAMER melatonin tablet 3 mg, 3 mg, Oral, Nightly PRN, Corbin Adonis, WINDOW FRAMER, 3 mg at 11/16/24 2215 methocarbamol (ROBAXIN) tablet 1,000 mg, 1,000 mg, Oral, 4x Daily, Corbindenise Lamb, WINDOW FRAMER, 1,000 mgat 11/17/242125 metoPROLOL TARTRATE (LOPRESSOR) tablet 50 mg, 50 mg, Oral, BID, Corbin Adonis, WINDOW FRAMER, 50 mg at 11/17/242123 multivitamin with minerals tablet 1 tablet, 1 tablet, Oral, Daily, Corbin Adonis, WINDOW FRAMER, 1 tabletat 11/17/24 0816 naloxone (NARCAN) 0.4 mg/mL injection 0.4 mg, 0.4 mg, Intravenous, Q5 Min PRN, Corbin Adonis, WINDOW FRAMER naloxone (NARCAN) 0.4 mg/mL injection 0.4 mg, 0.4 mg, Intravenous, Q5 Min PRN, Corbin Adonis, WINDOW FRAMER nicotine (NICODERM CQ) 21 MG/24HR patch 1 patch, 1 patch, Transdermal, Daily, Corbin Adonis, WINDOW FRAMER, 1 patch at 11/17/24 0816 ondansetron (ZOFRAN) injection 4 mg, 4 mg, Intravenous, Q6H PRN, Corbin Adonis, WINDOW FRAMER, 4 mg at 11/17/24 1639 PANTOprazole (PROTONIX) EC tablet 40 mg, 40 mg, Oral, Daily, Corbin Adonis, WINDOW FRAMER, 40 mg at 11/17/24 0815 polyethylene glycol (miraLAx) packet 17 g, 17 g, Oral, Daily, Corbin Adonis, WINDOW FRAMER, 17 g at 11/17/24 1212 [Provider Held] pravastatin (PRAVACHOL) tablet 20 mg, 20 mg, Oral, Daily, Corbin Adonis, WINDOW FRAMER pregabalin (LYRICA) capsule 100 mg, 100 mg, Oral, TID, Corbin Adonis, WINDOW FRAMER, 100 mg at 11/17/242123 senna-docusate (SENNA-S) 8.6-50 MG tablet 2 tablet, 2 tablet, Oral, BID, Corbin Adonis, WINDOW FRAMER, 2 tablet at 11/17/242124 thiamine mononitrate (VITAMIN B-1) tablet 200 mg, 200 mg, Oral, Daily, Corbin Adonis, WINDOW FRAMER, 200 mg at 11/17/24 0814 Vitals: 11/18/24 [...] (218 lb 11.1 oz) Height: Cristina Rodriguez, WINDOW FRAMER 11/18/24 9:18 AM Addendum: From an EP perspective, he can re-start his Eliquis today. Cristina Rodriguez, WINDOW FRAMER 11/18/24 9:19 AM * Sri Pena RN - 11/18/2024 8:25 AM EST Attached media from the original note were not included. Pacemaker evaluation completed on B10E, device interrogation ordered for post- OP. Presenting rhythm: AM-PEELER OPERATOR @ 69 bpm. Underlying rhythm: No ventricular response greater than 40 bpm. AM-PEELER OPERATOR @ 84.8%. Battery and device parameters evaluated [...] level of independence with self-care tasks. Current [facility] Daily Activity Score: 16 Precautions/Restrictions: fall, aspiration, pacemaker, isolation: contact, weight bearing (NWBing to L residual limb with agile scrum master and nutmeggar in place, skin) Rehab Plan [...] bearing (NWBing to L residual limb with agile scrum master and nutmeggar in place, skin) Pain Assessment [...] Progressive Mobility Level Achieved Edge of Bed [facility] Daily Activity Putting on and taking off Lower Body Clothing? 3 Bathing (including washing/rinsing/drying)? 2 Toileting (includes using toilet, bedpan, or urinal)? 2 Putting on and taking off upper body clothing? 3 Taking care of personal grooming such as brushing teeth? 3 Eating meals? 3 [facility] Daily Activity Score 16 Therapy Assessment/Plan (OT) [...] OT) goal ongoing Bathing Goal 1 (OT) [place] Level/Cues Needed (Bathing Goal 1, OT) minimum [...] Frame (Dressing Goal 1, OT) 1 week [place]/Cues Needed (Dressing Goal 1, OT) minimum assist (75% or more patient effort) Toileting Goal 1 (OT) Activity/Device (Toileting Goal 1, OT) toileting skills, all Progress/Outcome (Toileting Goal 1, OT) goal revised this date Time Frame (Toileting Goal 1, OT) 1 week [place] Level/Cues Needed (Toileting Goal 1, OT) minimum assist (75% or more patient effort) Sign: Katy Rodgers, YOVANNY * Valencia Lau APRN - 11/17/2024 10:51 AM EST Images from the original note were not included. [place] [facility]ARDI[facility]Y PROGRESS NOTE Outpatient Aluminum Pourer: [facility] Assessment & Plan Assessment 63 year old male with hypertension, hyperlipidemia, diabetes, CKD stage III, peripheral artery disease, diabetes, foot infection with osteomyelitis, complete heart block s/p dual chamber pacemaker [id number], atrial fibrillation s/p multiple ablations and cardioversions [...] Bumex 1 mg daily today -BNP downtrending [phone] -Closely monitor renal function and electrolytes with [...] -Pacer interrogation 11/11/24: Presenting rhythm: AP / PEELER OPERATOR @ 60 bpm. Underlying rhythm: SB @ [...] PO, Daily Given, 1 mg at 11/17 812 [Provider Held] glimepiride (AMARYL) tablet 2 mg On hold since Fri11/04/2024 at 1503 until manually unheld; held by Gayle Rey Reason: Pre-procedure On hold since Fri11/04/2024 at 1503 until manually unheld (Needs Review) Hold reason: Pre-procedure 2 mg, PO, Daily with breakfast Given, 2 mg at 11/04 075 [Provider Held] heparin (porcine) 5000 unit/mL injection [...] Q3H PRN Given, 4 mg at 11/16 221 ipratropium-albuterol (DUONEB) 0.5-2.5 mg/3 mL nebulizer solution [...] by 8 bpm Confirmed by MD Claude, [facility] ([id number]) on 11/07/2024 6:25:53 PM TATIANNA [...] Compared to previous outside study report from [facility] on 08/05/2024, Mitral and tricuspid regurgitation were not previously reported. Recommend transesophageal echocardiogram if clinically indicated. Brain MRI 11/12/2024 No acute intracranial findings or suspicious intracranial lesions. No septic emboli. All additional appropriate imaging studies within the past 24 hours reviewed - images reviewed and independently interpreted. Sign Valencia Lau APRN [facility] [place] 11/17/2024 10:51 AM Associated attestation - Devon [...] MD 11/17/2024 10:06 AM * Roberto Carranza, LAST CHALKER - 11/17/2024 9:36 AM EST Physical Therapy Progress Note Precautions/Restrictions: fall, aspiration, other (see comments) (Skin) Assessment Summary: Patient seen for PT follow up. L residual limb agile scrum master and nutmegger donned. Performed bed mobility and [...] level of independence with functional mobility. Current [facility] Basic Mobility Score: 16 Rehab Plan of [...] Progressive Mobility Level Achieved Transferring to Chair [facility] Basic Mobility Turning from your back to [...] Climbing 3-5 steps with a railing? 1 [facility] Basic Mobility Score 16 Therapy Assessment/Plan (PT) [...] from the original note were not included. [facility] INFECTIOUS DISEASE Consult progress Note Name: Blas M Genao Age: 63 y.o. Sex: male Admit [...] 2017 6.Right TMA with chronic wounds WBC: 11.2 [...] onward) Start Dose/Rate Route Frequency Ordered Stop 02/05/25 0900 DAPTOmycin (CUBICIN) 975 mg in sodium chloride (NS) 0.9 % 50 mL IVPB 10 mg/kg ?? 97.3 kg (Adjusted) 139 mL/hr over 30 Minutes Intravenous Every 24 hours 11/03/24 0849 Sign Ena Mtz MD, FACP, CWSP [facility] Infectious Diseases Available via GetApp SUBJECTIVE Afebrile. No new complaints Feels better. [...] not compromised. This report was generated using [employer] Speaking dictation software. Although every attempt has [...] were not included. Coverage for Dr. Mtz [facility] ID Progress Note Name: Blas Genao [...] Soft, nontender Extremities: Left BKA stump with agile scrum master garment, and ampul sheIld LABORATORY AND DIAGNOSTIC [...] performed in office at [facility] and images reviewed by orthopedic provider. Any [...] BID Luis Degroot MD 50 mg at 11/16/24 0946 mineral oil (FLEET OIL) enema 1 enema [...] Daily Luis Degroot MD 1 patch at 11/16/24 0945 ondansetron (ZOFRAN) injection 4 mg 4 mg [...] not compromised This report was generated using [employer] Speaking dictation software. Although every attempt has been made by the provider to proofread this document, occasional misspellings and typographical errors Sign Chris Taylor MD, FID, [facility] Infectious Diseases Available via [employer] 11/16/2024 11:27 AM * Maddison Villalpando MD [...] were not included. Coverage for Dr. Mtz [facility] ID Progress Note Name: Blas Genao [...] cultures = NGTD -11/04 (2/2) bld cx:MRSA -11/02(2/2) blood cultures: MRSA, Enterococcus faecalis, Enterococcus faecium -10/27: Left foot wound culture at [place]: MRSA, Enterococcus faecalis, VRE, Corynebacterium species and [...] was performed in office at [facility] and images reviewed by orthopedic provider. [...] injection 5,000 Units 5,000 Units Subcutaneous Q8H [facility] Luis Degroot MD 5,000 [...] not compromised This report was generated using [employer] dictation software. Although every attempt has been made by the provider to proofread this document, occasional misspellings and typographical errors Sign Chris Taylor MD, [facility], [facility] Infectious Diseases Available via [employer] 11/15/2024 1:10 PM * Devon Lazo MD - 11/15/2024 1:00 PM EST Images from the original note were not included. [facility] CARDIOLOGY PROGRESS NOTE Outpatient Aluminum Pourer: Assessment & Plan Assessment 63 year old male with hypertension, hyperlipidemia, diabetes, CKD stage III, peripheral artery disease, diabetes, foot infection with osteomyelitis, complete heart block s/p dual chamber pacemaker [id number], atrial fibrillation s/p multiple ablations and cardioversions [...] with meals Given, 950 mg at 11/15 0851 chlorhexidine gluconate 2 % wipes - central line CHG application No Dose/Rate, TOP, Daily Given, 1 each at 11/12 09 cholecalciferol tablet 2,000 Units 2,000 Units, PO, Daily Given, 2,000 Units at 11/15 0849 cyanocobalamin (VITAMIN B-12) tablet 2,500 mcg 2,500 mcg, PO, Daily Given, 2,500 mcg at 11/15 0849 DAPTOmycin (CUBICIN) 975 mg in sodium [...] 4x Daily Given, 1,000 mg at 11/15 0750 metoPROLOL TARTRATE (LOPRESSOR) tablet 50 mg 50 mg, PO, BID Given, 50 mg at 11/15 849 multivitamin with minerals tablet 1 tablet 1 tablet, PO, Daily Given, 1 tablet at 11/15 0751 nicotine (NICODERM CQ) 21 MG/24HR patch 1 patch 1 patch, TD, Daily Patch Applied, 1 patch at 11/15 848 PANTOprazole (PROTONIX) EC tablet 40 mg 40 mg, PO, Daily Given, 40 mg at 11/15 850 [Provider Held] pravastatin (PRAVACHOL) tablet 20 mg [...] PO, Daily Given, 200 mg at 11/15 0747 PRN Medication Ordered Dose/Rate, Route, Frequency Last [...] by 8 bpm Confirmed by MD Claude, med ([id number]) on 11/07/2024 6:25:53 PM All additional appropriate imaging studies within the past 24 hours reviewed - images reviewed and independently interpreted. Sign Devon Lazo MD [facility] [place] 11/15/2024 1:00 PM * Elida Berger OT [...] [facility] and reports good family support and DME. Pt is an excellent rehab candidate and will benefit from3 hours of intensive daily therapy with the potential to return home and reintegrate back into the [facility]. Progress Towards Goals: progress toward functional goals is good Outcome Measures: The Activity Measure for Post-Acute Care (AM-PAC) Daily Activity Inpatient Short Form (6-clicks) zakiya standardized measure used to quantify deficits in self-care. The total score of the measure ranges from 6-24. A higher score indicates a higher level of independence with self-care tasks. Current [facility] Daily Activity Score: 17 Precautions/Restrictions: fall, other [...] Progressive Mobility Level Achieved Transferring to Chair [facility] Daily Activity Putting on and taking off Lower Body Clothing? 3 Bathing (including washing/rinsing/drying)? 2 Toileting (includes using toilet, bedpan, or urinal)? 2 Putting on and taking off upper body clothing? 3 Taking care of personal grooming such as brushing teeth? 3 Eating meals? 4 [facility] Daily Activity Score 17 Therapy Assessment/Plan (OT) [...] pain Pharmacy pain management will sign off. Fany AlexisD * Maddison Villalpando MD - 11/14/2024 2:48 [...] 117/57 Pulse: 61 61 63 61 Resp: 18 Temp: 96.6 ??F (35.9 ??C) (!) 95.7 ??F (35.4 ??C) 97 ??F (36.1 ??C) SpO2: 96% 97% 96% 92% 11/13/24 1800 11/14/24 0557 11/14/24 0809 11/14/24 1228 BP: (!) 121/56 106/59 116/59 Pulse: 61 61 74 Resp: 18 Temp: 96.9 ??F (36.1 ??C) 96.9 [...] Villalpando MD - 11/13/2024 3:26 PM EST HOSPITAL MEDICINE PROGRESS NOTE Assessment [...] chills. Objective Vitals: 11/12/24 1420 11/12/24 1750 11/12/24203411/12/242049 BP: (!) 110/53 130/62 130/60 Pulse: 61 [...] Villalpando MD 11/13/2024 3:26 PM * Valencia Lau, SHUBHAM - 11/13/2024 11:03 AM EST Images from the original note were not included. [facility] Inpatient Progress Note Date of admission:11/02/2024 Today's date: 11/13/2024 Primary Aluminum Pourer: [facility] Assessment & Plan 63 year old male with hypertension, hyperlipidemia, diabetes, CKD stage III, peripheral artery disease, diabetes, foot infection with osteomyelitis, complete heart block s/p dual chamber pacemaker [id number], atrial fibrillation s/p multiple ablations and cardioversions [...] -Pacer interrogation 11/11/24: Presenting rhythm: AP / PEELER OPERATOR @ 60 bpm. Underlying rhythm: SB @ [...] pain, dizziness, palpitations, syncope Objective: Telemetry Reviewed: PEELER OPERATOR 60 Last Vitals Pulse:63,Resp:18,BP:116/60,SpO2:96 %,Weight:120 kg (264 [...] Daily with breakfast Given, 2 mg at 02/06 0757 heparin (porcine) 5000 unit/mL injection 5,000 [...] Compared to previous outside study report from [facility] on 08/05/2024, Mitral and tricuspid regurgitation were [...] other active symptoms. Objective Vitals: 11/11/24 1638 11/11/246 11/11/24 2108 11/12/24 0027 BP: 128/60 133/60 [...] Danielle MD - 11/12/2024 3:33 PM EST [facility] ID Progress Note Length of Stay: [...] final timing Time spent on chart/literature review, [id number] discussion and exam with patient, and documentation: [...] Resolved Problems: Noemí Danielle MD Available on [employer] 11/12/2024 3:33 PM * POOJA Allen - 11/12/2024 11:59 AM EST Images from the original note were not included. [facility] Inpatient Progress Note Date of admission:11/02/2024 Today's date: 11/12/2024 Primary Aluminum Pourer: [facility] Assessment & Plan 63 year old male with hypertension, hyperlipidemia, diabetes, CKD stage III, peripheral artery disease, diabetes, foot infection with osteomyelitis, complete heart block s/p dual chamber pacemaker [id number], atrial fibrillation s/p multiple ablations and cardioversions [...] Pacer eval 11/11/24: Presenting rhythm: AP / PEELER OPERATOR @ 60 bpm. Underlying rhythm: SB @ [...] No lightheadedness or dizziness. Objective: Telemetry Reviewed: PEELER OPERATOR 60 Last Vitals Pulse:67,Resp:18,BP:(!) 113/53,SpO2:(!) 91 %,Weight:120 [...] IVPB 10 mg/kg, IV, Q24H Stopped, 11/11 1658 donepezil (ARICEPT) tablet 10 mg 10 mg, [...] Q8H JUDSON Given, 5,000 Units at 11/12 928 [Provider Held] insulin lispro (HumaLOG/ADMELOG) 100 units/mL injection 1-11 Units On hold since yesterday at 1034 until manually unheld; held by Prerna Crews Reason: NPO On hold since yesterday at 1034 until manually unheld (Needs Review) Hold reason: NPO 1-11 Units, SC, TID with meals Given, 4 Units at 11/11 08 [Provider Held] insulin lispro (HumaLOG/ADMELOG) 100 units/mL [...] Daily Patch Applied, 1 patch at 11/12 0930 PANTOprazole (PROTONIX) EC tablet 40 mg 40 [...] PO, BID Given, 2 tablet at 11/12 09 thiamine mononitrate (VITAMIN B-1) tablet 200 [...] Compared to previous outside study report from [facility] on 08/05/2024, Mitral and tricuspid regurgitation were [...] 12:53 PM EST I agree with the clinical pharmacy specialist note. * Elida Berger, OT - 11/12/2024 [...] [facility] and reports good family support and DME. Pt is an excellent rehab candidate and will benefit from3 hours of intensive daily therapy with the potential to return home and reintegrate back into [facility] Progress Towards Goals: progress toward functional goals is good Outcome Measures: The Activity Measure for Post-Acute Care (AM-PAC) Daily Activity Inpatient Short Form (6-clicks) zakiya standardized measure used to quantify deficits in self-care. The total score of the measure ranges from 6-24. A higher score indicates a higher level of independence with self-care tasks. Current [facility] Daily Activity Score: 16 Precautions/Restrictions: fall, isolation: [...] Progressive Mobility Level Achieved Transferring to Chair [facility] Daily Activity Putting on and taking off Lower Body Clothing? 2 Bathing (including washing/rinsing/drying)? 2 Toileting (includes using toilet, bedpan, or urinal)? 2 Putting on and taking off upper body clothing? 3 Taking care of personal grooming such as brushing teeth? 3 Eating meals? 4 [facility] Daily Activity Score 16 Therapy Assessment/Plan (OT) [...] ordered for function. Presenting rhythm: AP / PEELER OPERATOR @ 60 bpm. Underlying rhythm: SB @ [...] of 40-44% and patent foramina well with frop-xy-gzyue shunting and moderate to severe TR MRI [...] concerns validated and emotional support provided; nurse retail area manager made aware. Resources: Patient informed of the following resources and how to request it: Integrative Medicine Services available at [facility], including, Massage Therapy, and Reiki/Energy Therapy Social [...] were not included. Coverage for Dr. Mtz [facility] ID Progress Note Name: Blas Genao [...] faecium -10/27: Left foot wound culture at [place]: MRSA, Enterococcus faecalis, VRE, Corynebacterium species and [...] nontender Left BKA stump site covered in agile scrum master garment and ampu sheild LABORATORY AND DIAGNOSTIC [...] was performed in office at [facility] and images reviewed by orthopedic provider. [...] JUDSON Rafiq Chakraborty MD 81 mg at 11/10/24 [...] injection 5,000 Units 5,000 Units Subcutaneous Q8H [facility] Haven Bach APRN 5,000 [...] 2AM Eunice Garrison APRN 1 Units at 11/10/242037 insulin lispro (HumaLOG/ADMELOG) 100 units/mL injection 1-6 Units 1-6 Units Subcutaneous Q4H [facility] POOJA Crews [Provider Held] insulin lispro (HumaLOG/ADMELOG) 100 units/mL injection 5 Units 5 Units Subcutaneous TID with meals Eunice ColmenaresSHUBHAM bonner 5 Units at 11/09/24 1313 [...] capsule 150 mg 150 mg Oral TID Olurotimi Kandis Martin MD senna-docusate (SENNA-S) 8.6-50 MG tablet [...] not compromised This report was generated using [employer] Speaking dictation software. Although every attempt has been made by the provider to proofread this document, occasional misspellings and typographical errors Sign Chris Taylor MD, [facility] Infectious Diseases Available via [employer] 11/11/2024 10:52 AM * Fany AlexisD - 11/11/2024 9:29 AM EST Patient: Blas [...] 4 mg q3h PRN for severe pain ([id number]). 1x dose of liquid dilaudid 1mg given [...] Compared to previous outside study report from [facility] on 08/05/2024, Mitral and tricuspid regurgitation were [...] empagliflozin (JARDIANCE) 25 mg On hold since [facility] 11/04/2024 at 1503 until manually unheld; held by Juaquin Kern MDHold Reason: Pre-procedure On hold since Fri11/04/2024 at 1503 until manually unheld (Needs Review) Hold reason: Pre-procedure 25 mg, PO, Daily Given, 25 mg at 11/04 0756 folic acid (FOLVITE) tablet 1 mg 1 mg, PO, Daily Given, 1 mg at 11/10 912 [Provider Held] glimepiride (AMARYL) tablet 2 mg On hold since [facility] 11/04/2024 at 1503 until manually unheld; held [...] tablet, PO, BID Given, 2 tablet at 02/12 2038 thiamine mononitrate (VITAMIN B-1) tablet 200 mg [...] of Pulmonary, Critical Care, and Sleep Medicine [address] [place] [address], [address], [place] [address] Critical Care Progress Note Assessment & Plan [...] Compared to previous outside study report from [facility] on 08/05/2024, Mitral and tricuspid regurgitation were [...] the unit or at the nursing station onthe floor where the patient is located. My [...] Case IDs Date Procedure Surgeon Location Status [id number] 11/05/24 LEFT BELOW KNEE AMPUTATION Dallas Camejo [...] empagliflozin (JARDIANCE) 25 mg On hold since [facility] 11/04/2024 at 1503 until manually unheld; held [...] ruled out. This report was generated using [employer] Speaking dictation software. Although every attempt has [...] out/in endocarditis Plan -NWB, ampushield and stump agile scrum master -Currently on ASA BID and subcutaneous heparin- can likely DC ASA and continue heparin if ok with step down team. Once it is deemed pt does not need any more surgical procedures for his valve/pacemaker we can restart Eliquis from an ortho point -Will discuss whether [...] redressed with xeroform, abds and applied the agile scrum master garment and ampu shield. Labs: Recent Labs [...] were not included. Coverage for Dr. Mtz [facility] ID Progress Note Name: Blas Genao [...] faecium -10/27: Left foot wound culture at [place]: MRSA, Enterococcus faecalis, VRE, Corynebacterium species and [...] was performed in office at [facility] and images reviewed by orthopedic provider. Any findings are documented within ambulatory encounter note on date of service. Current Medications: Current Facility-Administered Medications Medication Dose Route Frequency Provider Last Rate Last Admin acetaminophen (TYLENOL) tablet 975 mg 975 mg Oral Q6H [facility] Rafiq Chakraborty MD 975 mg at 11/10/24 0407 amiODARONE (PACERONE) tablet 200 mg 200 mg Oral Daily Claire Garibay PA-C 200 mg at 11/10/24 0915 amLODIPine (NORVASC) tablet 10 mg 10 mg Oral Daily Rafiq Chakraborty MD 10 mg at 11/10/24 0909 aspirin enteric coated (ECOTRIN LOW STRENGTH) tablet 81 mg 81 mg Oral Q12H [facility] Rafiq Chakraborty MD 81 mg at 11/10/24 [...] injection 5,000 Units 5,000 Units Subcutaneous Q8H [facility] Haven Bach APRN 5,000 [...] Daily Rafiq Chakraborty MD 1 tablet at 5 naloxone (NARCAN) 0.4 mg/mL injection 0.4 mg [...] not compromised This report was generated using [employer] Speaking dictation software. Although every attempt has been made by the provider to proofread this document, occasional misspellings and typographical errors Sign Chris Taylor MD, [facility] Infectious Diseases Available via [employer] 11/10/2024 11:34 AM * POOJA Jimenez - 11/10/2024 10:45 AM EST Images from the original note were not included. [facility] Inpatient Progress Note Date of admission:11/02/2024 Today's date: 11/10/2024 Primary Aluminum Pourer: [facility] Assessment & Plan 63 year old male with hypertension, hyperlipidemia, diabetes, CKD stage III, peripheral artery disease, diabetes, foot infection with osteomyelitis, complete heart block s/p dual chamber pacemaker [id number], atrial fibrillation s/p multiple ablations and cardioversions [...] abdomen much less distended Objective: Telemetry Reviewed: PEELER OPERATOR 60 Last Vitals Pulse:60,Resp:17,BP:130/60,SpO2:94 %,Weight:120 kg (264 [...] empagliflozin (JARDIANCE) 25 mg On hold since [facility] 11/04/2024 at 1503 until manually unheld; held by Gayle Rey Reason: Pre-procedure On hold since Fri11/04/2024 at 1503 until manually unheld Hold reason: Pre-procedure 25 mg, PO, Daily Given, 25 mg at 11/04 0756 folic acid (FOLVITE) tablet 1 mg 1 mg, PO, Daily Given, 1 mg at 11/10 912 [Provider Held] glimepiride (AMARYL) tablet 2 mg On hold since [facility] 11/04/2024 at 1503 until manually unheld; held [...] injection 5 Units On hold since todayat 075 until manually unheld; held by POOJA Mas-CHold Reason: NPO On hold since today at [...] Compared to previous outside study report from [facility] on 08/05/2024, Mitral and tricuspid regurgitation were [...] Compared to previous outside study report from [facility] on 08/05/2024, Mitral and tricuspid regurgitation were [...] Number of days: 2 Enteric Access and Stoo: Restraints: None Code: Full Dispo: SD, per [...] Pulmonary, Critical Care, and Sleep Medicine [address], [address], [place] [address] Critical Care Progress Note Assessment & Plan [...] supplementation for goal sats >92% Follow-up ABG 7.38/36/22 Continue diuresis DuoNeb as needed Slight worsening [...] Compared to previous outside study report from [facility] on 08/05/2024, Mitral and tricuspid regurgitation were [...] Case IDs Date Procedure Surgeon Location Status [id number] 11/05/24 LEFT BELOW KNEE AMPUTATION Dallas Camejo [...] Q12H JUDSON Given, 81 mg at 11/09 09 aztreonam (AZACTAM) 2 g in sodium chloride-MBP [...] TOP, Daily Given, 1 each at 11/09 0925 cholecalciferol tablet 2,000 Units 2,000 Units, PO, Daily Given, 2,000 Units at 11/09 0907 cyanocobalamin (VITAMIN B-12) tablet 2,500 mcg [...] ruled out. This report was generated using [employer] dictation software. Although every attempt has been [...] were not included. Coverage for Dr. Mtz [facility] ID Progress Note Name: Blas Genao [...] faecium -10/27: Left foot wound culture at [place]: MRSA, Enterococcus faecalis, VRE, Corynebacterium species and [...] Soft nontender Left BKA stump site in agile scrum master LABORATORY AND DIAGNOSTIC DATA: Lab and imaging [...] was performed in office at [facility] and images reviewed by orthopedic provider. Any findings are documented within ambulatory encounter note on date of service. Current Medications: Current Facility-Administered Medications Medication Dose Route Frequency Provider Last Rate Last Admin acetaminophen (TYLENOL) tablet 975 mg 975 mg Oral Q6H [facility] Rafiq Chakraborty MD 975 mg at 11/09/24 0914 [START ON 11/10/2024] amiODARONE (PACERONE) tablet 200 mg 200 mg Oral Daily Claire Garibay PA-C amLODIPine (NORVASC) tablet 10 mg 10 mg Oral Daily Rafiq Chakraboryt MD 10 mg at 11/09/24 0911 aspirin [...] injection 5,000 Units 5,000 Units Subcutaneous Q8H [facility] Haven Bach APRN HYDROmorphone [...] 5 Units 5 Units Subcutaneous TID with mealsEunice Garrison APRN 5 Units at 11/08/24 1746 [...] Daily Rafiq Chakraborty MD 40 mg at 11/09/2415 polyethylene glycol (miraLAx) packet 17 g 17 g Oral Daily PRN Rafiq Chakraborty MD [Provider Held] pravastatin (PRAVACHOL) tablet 20 mg 20 mg Oral Daily Rafiq Chakraborty MD pregabalin (LYRICA) capsule 150 mg 150 mg Oral TID Rafiq Chakraborty MD 150 mg at 11/09/24 09 senna-docusate (SENNA-S) 8.6-50 MG tablet 2 tablet 2 tablet Oral BID Rafiq Chakraborty MD 2 tablet at 11/09/24 09 thiamine mononitrate (VITAMIN B-1) tablet 200 [...] not compromised This report was generated using [employer] Speaking dictation software. Although every attempt has been made by the provider to proofread this document, occasional misspellings and typographical errors Sign Chris Taylor MD, [facility] Infectious Diseases Available via [employer] 11/09/2024 11:55 AM * Deep Bales PharmD [...] visit with patient again tomorrow. * Gema Dumont Buck, WINDOW FRAMER - 11/09/2024 9:00 AM EST Images from the original note were not included. [facility] PROGRESS NOTE Outpatient Aluminum Pourer: Aluminum Pourer at [facility] in [place] Assessment & Plan Assessment Blas Genao is [...] by 8 bpm Confirmed by MD Claude, med ([id number]) on 11/07/2024 6:25:53 PM ECHO: (11/04/2024) [...] Compared to previous outside study report from [facility] on 08/05/2024, Mitral and tricuspid regurgitation were not previously reported. Recommend transesophageal echocardiogram if clinically indicated. All additional appropriate imaging studies within the past 24 hours reviewed - images reviewed and independently interpreted. Sign Gema Jane APRN [facility] [place] 11/09/2024 9:00 AM * Roberto Carranza PTA - 11/09/2024 8:40 AM EST Physical Therapy Progress Note Precautions/Restrictions: fall, isolation: contact, pacemaker, other (see comments) (NWB LLE; Skin) Assessment Summary: Patient seen for PT follow up. Performed bed mobility, transfers and sidesteps this session. Required Ax2 for mobility. Adjusted nutmegger for optimal fit and protection of residual limb. Per orders patient is to have agile scrum master on AAT, noted that residual limb was wrapped with srinivas wrap vs agile scrum master. Reached out to orthopedic PA in regards to agile scrum master for patient. Patient is motivated to participate [...] level of independence with functional mobility. Current [facility] Basic Mobility Score: 14 Rehab Plan of [...] Progressive Mobility Progressive Mobility Level Achieved Standing [facility] Basic Mobility Turning from your back to [...] Climbing 3-5 steps with a railing? 1 [facility] Basic Mobility Score 14 Therapy Assessment/Plan (PT) [...] 1, PT) goal ongoing Sign: Roberto Carranza LAST CHALKER Associated attestation - Abhinav Pope PT - 11/09/2024 2:02 PM EST This [...] level of independence with self-care tasks. Current [facility] Daily Activity Score: 15 Precautions/Restrictions: fall, isolation: [...] need to get stronger. Flowsheet Data 11/09/24 0811 OT Time and Intention OT Follow-Up Visit [...] Progressive Mobility Level Achieved Edge of Bed [facility] Daily Activity Putting on and taking off Lower Body Clothing? 2 Bathing (including washing/rinsing/drying)? 2 Toileting (includes using toilet, bedpan, or urinal)? 1 Putting on and taking off upper body clothing? 3 Taking care of personal grooming such as brushing teeth? 3 Eating meals? 4 [facility] Daily Activity Score 15 Therapy Assessment/Plan (OT) [...] OT goal 1 Transfer Goal 1 (OT) [place] Level/Cues Needed (Transfer Goal 1, OT) minimum [...] Pulmonary, Critical Care, and Sleep Medicine [address], [address], [place] [address] Critical Care Progress Note Assessment & Plan [...] Compared to previous outside study report from [facility] on 08/05/2024, Mitral and tricuspid regurgitation were [...] the unit or at the nursing station [facility] floor where the patient is located. [...] Case IDs Date Procedure Surgeon Location Status [id number] 11/05/24 LEFT BELOW KNEE AMPUTATION Dallas Camejo [...] Q8H New Bag, 2 g at 11/09 044 buPROPion (WELLBUTRIN SR) 12 hr tablet 150 [...] IV, Continuous New Bag, 1 mg/hr at 11/093 PRN Medication Ordered Dose/Rate, Route, Frequency Last [...] ruled out. This report was generated using [employer] Speaking dictation software. Although every attempt has [...] were not included. Coverage for Dr. Mtz [facility] ID Progress Note Name: Blas Genao [...] faecium -10/27: Left foot wound culture at [place]: MRSA, Enterococcus faecalis, VRE, Corynebacterium species and [...] nontender Extremities: Left BKA site-> No drain. Pharmaceutical Laboratory Technician in place LABORATORY AND DIAGNOSTIC DATA: Lab [...] was performed in office at [facility] and images reviewed by orthopedic provider. [...] Daily Rafiq Chakraborty MD 10 mg at 11/08/24904 aspirin enteric coated (ECOTRIN LOW STRENGTH) tablet 81 mg 81 mg Oral Q12H JU[facility] Chakraborty MD 81 mg at 11/08/24 09 aztreonam (AZACTAM) 2 g in sodium chloride-MBP [...] Rafiq Chakraborty MD 600 mg at 11/08/24 09 cholecalciferol tablet 2,000 Units 2,000 Units Oral [...] Rafiq Chakraborty MD 1 mg at 11/08/24 09 [Provider Held] glimepiride (AMARYL) tablet 2 [...] 1-11 Units Subcutaneous TID withmeals Kayla Orona, WINDOW FRAMER 3 Units at 11/08/24 0901 insulin lispro (HumaLOG/ADMELOG) 100 units/mL injection 1-4 Units 1-4 Units Subcutaneous Nightly Kayla Orona, WINDOW FRAMER 2 Units at 11/07/24 2046 ipratropium-albuterol (DUONEB) [...] Daily Rafiq Chakraborty MD 1,000 mg at 903 metoPROLOL TARTRATE (LOPRESSOR) tablet 50 mg 50 mg Oral BID Rafiq Chakraborty MD 50 mg at 11/08/24 09 mineral oil (FLEET OIL) enema 1 enema 1 enema Rectal Daily PRN Rafiq Chakraborty MD multivitamin with minerals tablet 1 tablet 1 tablet Oral Daily Rafiq Chakraborty MD 1 tablet at 905 naloxone (NARCAN) 0.4 mg/mL injection 0.4 mg 0.4 mg Intravenous Q5 Min PRN Rafiq Chakraborty MD nicotine (NICODERM CQ) 21 MG/24HR patch 1 patch 1 patch Transdermal Daily Rafiq Chakarborty MD 1 patch at 11/08/24 09 ondansetron (ZOFRAN) injection 4 mg 4 mg Intravenous Q6H PRN Rafiq Chakraborty MD PANTOprazole (PROTONIX) EC tablet 40 mg 40 mg Oral Daily Rafiq Chakraborty MD 40 mg at 11/08/24 09 polyethylene glycol (miraLAx) packet 17 g 17 g Oral Daily PRN Rafiq Chakraborty MD [Provider Held] pravastatin (PRAVACHOL) tablet 20 mg 20 mg Oral Daily Rafiq Chakraborty MD pregabalin (LYRICA) capsule 150 mg 150 mg Oral TID Rafiq Chakraborty MD 150 mg at 11/08/24 09 senna-docusate (SENNA-S) 8.6-50 MG tablet 2 tablet 2 tablet Oral BID Rafiq Chakraborty MD 2 tablet at 11/08/24 0905 thiamine mononitrate (VITAMIN B-1) tablet 200 mg [...] not compromised This report was generated using [employer] Speaking dictation software. Although every attempt has been made by the provider to proofread this document, occasional misspellings and typographical errors Sign Chris Taylor MD, [facility] Infectious Diseases Available via [employer] 11/08/2024 10:02 AM * [place] Camejo MD - 11/08/2024 9:46 AM EST Blas's clinical progress and CP decompensation noted. Appreciate Medical management and CT recommendations. Drain out, wound clean, and Pharmaceutical Laboratory Technician in place. Will continue to follow. * Gema Jane APRN - 11/08/2024 9:38 AM EST Images from the original note were not included. [facility] PROGRESS NOTE Outpatient Aluminum Pourer: Aluminum Pourer at [facility] in [place] Assessment & Plan Assessment Blas Genao is [...] by 8 bpm Confirmed by MD Claude, [facility] ([id number]) on 11/07/2024 6:25:53 PM ECHO: [...] Compared to previous outside study report from [facility] on 08/05/2024, Mitral and tricuspid regurgitation were not previously reported. Recommend transesophageal echocardiogram if clinically indicated. All additional appropriate imaging studies within the past 24 hours reviewed - images reviewed and independently interpreted. Sign Gema Jane APRN [facility] [place] 11/08/2024 9:38 AM * Shay Martin MD - 11/08/2024 7:40 AM EST Images from the original note were not included. Division of Pulmonary, Critical Care, and Sleep Medicine [address] [place] [address], [address] [address] Critical Care Progress Note Assessment & Plan [...] Resp: Continue rescue BiPAP support Follow-up ABG 7./ Continue diuresis DuoNeb as needed CV: Continue [...] Compared to previous outside study report from [facility] on 08/05/2024, Mitral and tricuspid regurgitation were [...] the unit or at the nursing station [facility] floor where the patient is located. [...] Case IDs Date Procedure Surgeon Location Status [id number] 11/05/24 LEFT BELOW KNEE AMPUTATION Dallas Camejo [...] ruled out. This report was generated using [employer] dictation software. Although every attempt has been [...] left lower extremity, continue LLE nutmegger and agile scrum master. - skin checks to LLE bid - [...] CPAP 15L, sats drop when removed LLE: nutmegger/agile scrum master in place. Thigh soft Labs: Recent Labs [...] were not included. Coverage for Dr. Mtz [facility] ID Progress Note Name: Blas Genao [...] 11/05 -10/27: Left foot wound culture at [place]: MRSA, Enterococcus faecalis, VRE, Corynebacterium species and [...] -Ceftaroline, 11/05 Plan: Patient was upgraded to [place] 11 stepdown secondary to increased oxygen requirement, [...] was performed in office at [facility] and images reviewed by orthopedic provider. [...] tablet 975 mg 975 mg Oral Q6H [facility] POOJA De Souza 975 mg at 11/07/24 0814 amiODARONE (PACERONE) tablet 200 mg 200 mg Oral BID POOJA De Souza 200 mg at 11/07/24 0817 amLODIPine (NORVASC) tablet 10 mg 10 mg Oral Daily POOJA De Souza 10 mg at 11/07/24 0817 aspirin enteric coated (ECOTRIN LOW STRENGTH) tablet 81 mg 81 mg Oral Q12H [facility] POOJA De Souza81 mg [...] tablet 2 tablet 2 tablet Oral Nightly Renea Weeks Cafferty, PA 2 tablet at 11/06/242107 senna-docusate (SENNA-S) 8.6-50 MG tablet 2 tablet 2 tablet Oral BID Renea Yaorty, PA 2 tablet at 11/07/24817 sodium chloride (NS) 0.9 % infusion - ADS Override Pull thiamine mononitrate (VITAMIN B-1) tablet 200 mg 200 mg Oral Daily Renea Yaorty, PA 200 mg at 11/07/24 0814 ALLERGIES: [...] not compromised This report was generated using [employer] dictation software. Although every attempt has been made by the provider to proofread this document, occasional misspellings and typographical errors Sign Chris Taylor MD, [facility] Infectious Diseases Available via [employer] 11/07/2024 11:30 AM * Lei Diaz MD [...] both feet (HCC) PAD (peripheral artery disease) ([facility]) Primary osteoarthritis of knee Proteinuria Renal osteodystrophy Restless legs syndrome (RLS) no meds, lyrica helps Septic joint of left knee joint ([facility]) Sleep apnea BiPap Smoker Stage 3a chronic kidney disease (CKD) ([facility]) Past Surgical History: Procedure Laterality Date AMPUTATION [...] WOUND VAC; Surgeon: [place] Camejo MD; [facility]; Service: Orthopaedics; Laterality: Left; FOOT SURGERY Right x5 INCISION AND DRAINAGE FOOT Left OH PROCEDURE MAZE AFIB OSTECTOMY CALCANEOUS Left 09/10/2024 Procedure: ANKLE PARTIAL CALCANECTOMY; Surgeon: Dallas Camejo MD; Location: [facility] OR; Service: Orthopaedics; Laterality: Left; wOUND PARTIALLY [...] Continuous Glucose Sensor (FreeStyle Wallace 3 Sensor) [facility] [place] 1 DEVICE INTO THE SKIN EVERY [...] [phone] . Recent Labs 11/05/24 0712 11/06/24 04511/07/24 0813 NA 130* 131* 129* K 3.4 3.8 3.9 CO2 19* 20* 22 CL 96* 99 94* BUN 47* 48* 47* CREAT 2.0* 1.7* 1.5* CALCIUM 7.9* 7.8* 8.3* MG -- 2.5 2.3 PHOS -- 5.1* 4.3 . Recent Labs 11/05/24 0712 INR 1.3 . Recent Labs 11/05/24 0712 [...] to prior. Interpreted by: Roberto Tolbert MD Fitting Room Operator Sign: Lei Diaz MD 11/07/2024 11:05 AM [...] appropriate. Sign: Laura Blanco, PT * Marlin Martinez, OT - 11/07/2024 10:38 AM EST Occupational [...] BiPap rescuse and transferred to [facility]. Plan Principal Problem: Acute osteomyelitis of left [...] without problems. Last drink day before admission [facility] PRN protocol ordered Diet: Diet Diabetic/ Calorie Controlled; Carb Counting 60g/meal [id number] kcal DVT Px: SCDs - RIGHT (Knee High) Status: Full Code Consults placed: Procedures Inpatient consult to Internal Medicine Inpatient consult to Infectious Diseases (Specify provider ) Inpatient consult to Social Work Inpatient consult to Anesthesiology Inpatient consult to cardiology ([facility]) Inpatient consult to cardiac surgery Inpatient [...] Case IDs Date Procedure Surgeon Location Status [id number] 11/05/24 LEFT BELOW KNEE AMPUTATION [place] Camejo MD [facility] OR Comp Plan WB Status: NWB left lower extremity. Software Sales Manager stump agile scrum master in place. Appreciate PT and OT recommendations. [...] oriented. LE: Dressing clean, dry, and intact. Software Sales Manager stump agile scrum master in place. Labs: Recent Labs 11/05/24 0712 [...] level of independence with functional mobility. Baseline [facility] Basic Mobility Score: 24 Current [facility] Basic Mobility Score: 16 Objective Data ROM: [...] History Past Medical History: Diagnosis Date A-fib ([facility]) Acute osteomyelitis ([facility]) Atrial flutter ([facility]) Cardiac pacemaker 2015 Carotid atherosclerosis Charcot's joint of right foot 2015 Chronic sciatica Complete AV block ([facility]) Diabetes mellitus ([facility]) TYPE II Diabetic foot ulcer ([facility]) ED (erectile dysfunction) Edema ESBL (extended spectrum beta-lactamase) producing bacteria infection GERD (gastroesophageal reflux disease) GI bleed Hyperlipidemia Hypertension Leukocytosis Metabolic bone disease Multiple drug resistant organism (MDRO) culture positive Non healing left heel wound Obesity Osteoarthrosis Osteomyelitis of both feet (HCC) PAD (peripheral artery disease) ([facility]) Primary osteoarthritis of knee Proteinuria Renal osteodystrophy Restless legs syndrome (RLS) no meds, lyrica helps Septic joint of left knee joint ([facility]) Sleep apnea BiPap Smoker Stage 3a chronic kidney disease (CKD) ([facility]) Past Surgical History: Procedure Laterality Date AMPUTATION [...] WOUND VAC; Surgeon: Dallas Camejo MD; Location: [facility] OR; Service: Orthopaedics; Laterality: Left; FOOT SURGERY Right x5 INCISION AND DRAINAGE FOOT Left [place] PROCEDURE MAZE AFIB OSTECTOMY CALCANEOUS Left 09/10/2024 Procedure: ANKLE PARTIAL CALCANECTOMY; Surgeon: Dallas Camejo MD; Location: [facility] OR; Service:Orthopaedics; Laterality: Left; wOUND PARTIALLY CLOSED [...] Progressive Mobility Level Achieved Transferring to Chair [facility] Basic Mobility Turning from your back to [...] Climbing 3-5 steps with a railing? 1 [facility] Basic Mobility Score 16 Therapy Assessment/Plan (PT) [...] PT goal 1 Transfer Goal 1 (PT) [place] Level/Cues Needed (Transfer Goal 1, PT) supervision required Time Frame (Transfer Goal 1, PT) 1 week Activity/Assistive Device (Transfer Goal 1, PT) nno-mc-blqqi/qbeyb-lk-vsj;jda-qu-aysex/rwlar-kz-eud;wheelchair transfer;walker, rolling Gait Training Goal 1 (PT) Time Frame (Gait Training Goal 1, PT) 1 week [place] Level (Gait Training Goal 1, PT) supervision required Activity/Assistive Device (Gait Training Goal 1, PT) gait (walking locomotion);assistive device use;maintain weight-bearing status;increase energy conservation;increase endurance/gait distance;walker, rolling Distance (Gait Training Goal 1, PT) 20 Wheelchair Locomotion Goal 1 (PT) [place] Level/Cues Needed (Wheelchair Locomotion Goal 1, PT) supervision required Time Frame (Wheelchair Locomotion Goal 1, PT) 1 week Activity (Wheelchair Locomotion Goal 1, PT) wheelchair mobility skills, all Distance Goal 1 (Wheelchair Locomotion, PT) 200 Sign: Jessica Daily PT * Chris Taylor MD - 11/06/2024 10:58 AM EST Images from the original note were not included. Coverage for Dr. Mtz [facility] ID Progress Note Name: Blas Genao [...] amputation -10/27: Left foot wound culture at [place]: MRSA, Enterococcus faecalis, VRE, Corynebacterium species and [...] was performed in office at [facility] and images reviewed by orthopedic provider. [...] tablet 975 mg 975 mg Oral Q6H [facility] POOJA De Souza 975 mg at 11/05/24 0650 acetaminophen (TYLENOL) tablet 975 mg 975 mg Oral Q8H [facility] POOJA De Souza 975 [...] mg 10 mg Intravenous Q15 Min PRN POOAJ De Souza diazepam (VALIUM) injection 40 mg [...] not compromised This report was generated using [employer] Speaking dictation software. Although every attempt has been made by the provider to proofread this document, occasional misspellings and typographical errors Sign Chris Taylor MD, TREV, [facility] Infectious Diseases Available via [employer] 11/06/2024 10:58 AM * Adama Prasad APRN [...] bumex PO 2mg daily). Continue telemetry Outpatient reception manager: Lauren Carlos yovany [place] Subjective/24 hour Events C/o significant pain. No [...] Continuous Glucose Sensor (FreeStyle Wallace 3 Sensor) [facility] [place] 1 DEVICE INTO THE SKIN EVERY [...] (BUMEX) tablet 2 mg On hold since Fri11/04/2024 [...] with meals Given, 2 Units at 11/06 09 [Provider Held] metFORMIN (GLUCOPHAGE) tablet 500 mg On hold since Fri11/04/2024 at 1503 until manually unheld; held by Gayle Rey Reason: Pre-procedure On hold since Fri11/04/2024 at 1503 until manually unheld (Needs Review) Hold reason: Pre-procedure 500 mg, PO, Daily with breakfast Given, 500 mg at 11/04 0756 metoPROLOL TARTRATE (LOPRESSOR) tablet 50 mg 50 mg, PO, BID Given, 50 mg at 11/06 09 multivitamin with minerals tablet 1 tablet 1 tablet, PO, Daily Given, 1 tablet at 11/06 09 nicotine (NICODERM CQ) 21 MG/24HR patch 1 patch 1 patch, TD, Daily Patch Applied, 1 patch at 11/05 09 PANTOprazole (PROTONIX) EC tablet 40 mg 40 mg, PO, Daily Given, 40 mg at 11/06 0920 [Provider Held] pravastatin (PRAVACHOL) tablet 20 mg [...] PO, BID Given, 2 tablet at 11/06 908 sodium chloride (NS) 0.9 % infusion - [...] Compared to previous outside study report from [facility] on 08/05/2024, Mitral and tricuspid regurgitation were [...] software and direct typing. Please excuse inadvertent tipping machine operator automatic and typing errors. Sign Adama Prasad, WINDOW FRAMER 11/06/2024 10:06 AM * Dallas Rivers PA-C [...] Case IDs Date Procedure Surgeon Location Status [id number] 11/05/24 LEFT BELOW KNEE AMPUTATION Dallas Camejo MD [facility] OR Comp Plan Multimodal pain management DVT Prophylaxis: ASA 81mg PO BID Weight Bearing Status: NWB PT/OOB HV in place scant output overnight, will discuss with Dr. Camejo Appreciate Medicine, ID and Cardiology recs: for medical comanagement []TATIANNA pending []Blood Cultures Currently on Dapto, Ceftaroline Software Sales Manager Stump agile scrum master ordered Subjective No complaints. No CP,SOB,N/V. Pain [...] without problems. Last drink day before admission [facility] protocol ordered Diet: Diet Diabetic/ Calorie Controlled; Carb Counting 60g/meal 4506-9075 kcal DVT Px: SCDs - RIGHT (Knee High) Status: Full Code Consults placed: Procedures Inpatient consult to Internal Medicine Inpatient consult to Infectious Diseases (Specify provider ) Inpatient consult to Social Work Inpatient consult to Anesthesiology Inpatient consult to cardiology ([facility]) Inpatient consult to cardiac surgery Inpatient [...] Case IDs Date Procedure Surgeon Location Status [id number] 11/05/24 LEFT BELOW KNEE AMPUTATION Dallas Camejo MD [facility] OR [facility] WB status: NWB LLE Postop antibiotics: [...] from the original note were not included. [facility] CARDIOLOGY SERVICE CONSULT Date of Consult: 11/05/2024 Patient's Primary Care Physician: Lee Fabian MD Physician Requesting Consult: Orthopedic surgery Primary Aluminum Pourer: Aluminum Pourer at [facility] Reason for Consultation: Preop Admit Date: 11/02/2024 [...] doing TATIANNA first is not going to change management director. Leg wounds are like the source that [...] Stage 3a chronic kidney disease (CKD) (HCC) Reviewed Past Surgical History: Procedure Laterality Date [...] WOUND VAC; Surgeon: Dallas Camejo MD; Location: [facility] OR; Service: Orthopaedics; Laterality: Left; FOOT SURGERY Right x5 INCISION AND DRAINAGE FOOT Left [place] PROCEDURE MAZE AFIB OSTECTOMY CALCANEOUS Left 09/10/2024 Procedure: ANKLE PARTIAL CALCANECTOMY; Surgeon: Dallas Camejo MD; Location: [facility] OR; Service: Orthopaedics; Laterality: Left; wOUND PARTIALLY [...] Continuous Glucose Sensor (FreeStyle Wallace 3 Sensor) [facility] [place]JECT 1 DEVICE INTO THE SKIN EVERY [...] breakfast Given, 2 mg at 11/04 756 [Transfer Hold] insulin lispro (HumaLOG/ADMELOG) 100 units/mL injection 1-4 Units Medication was not reviewed on transfer 1-4 Units, SC, NIGHTLY & 2AM Given, 2 Units at 11/04 224 [Transfer Hold] insulin lispro (HumaLOG/ADMELOG) 100 units/mL [...] Compared to previous outside study report from [facility] on 08/05/2024, Mitral and tricuspid regurgitation were not previously reported. Recommend transesophageal echocardiogram if clinically indicated. All additional appropriate imaging studies within the past 24 hours reviewed - images reviewed and independently interpreted. Sign: Nitish Stephen MD [facility] [place] 11/05/2024 2:43 PM * Hilda Alvarado RN - 11/05/2024 1:36 PM EST Images from the original note were not included. * Hilda Alvarado RN - 11/05/2024 1:00 PM EST Attending Anesthesiologist (JO-ANN) monitoring and aware of vitals during duration of block procedure. * Ena Mtz MD - 11/05/2024 9:42 AM EST Images from the original note were not included. [facility] INFECTIOUS DISEASE Consult progress Note Name: [...] faecium 10/27: Left foot wound culture at [place]: MRSA, Enterococcus faecalis, VRE, Corynebacterium speciesand gram-negative [...] 0851 Sign Ena Mtz MD, FACP, CWSP [facility] Infectious Diseases Available via [employer] SUBJECTIVE Tmax 102.3 ??F Fevers overnight [...] not compromised. This report was generated using [employer] Speaking dictation software. Although every attempt has [...] consult to Anesthesiology Inpatient consult to cardiology ([facility]) Barriers for discharge: IV antibiotics, fevers, [...] Pulse: 85 (!) 54 74 Resp: 18 18 Temp: (!) 102.3 ??F (39.1 ??C) [...] request it: Integrative Medicine Services available at [facility], including, Massage Therapy, and Reiki/Energy Therapy Social Work Spiritual Care Pharmacist Nutrition Patient declined resources at this time. Demographic Screening: Medical insurance - Medicare Hvac Service Manager involvement - No. Worker's compensation - No [...] staff will identify along with patient a personnel training officer to provide updates. Interventions Provided and reviewed [...] were not included. Coverage for Dr. Mtz [facility] ID Progress Note Name: Blas Genao [...] ostectomy. -10/27: Left foot wound culture at [place]: MRSA, Enterococcus faecalis, VRE, Corynebacterium species and [...] from last 7 days Lab Units 11/04/24 0711/03/24212411/03/24 [id number]/02/[id number]/02/241999 SODIUM mmol/L -- -- -- -- 130* [...] was performed in office at [facility] and images reviewed by orthopedic provider. Any findings are documented within ambulatory encounter note on date of service. Current Medications: Current Facility-Administered Medications Medication Dose Route Frequency Provider Last Rate Last Admin lactated ringers (LR) infusion 100 mL/hr Intravenous Continuous POOJA Akers acetaminophen (TYLENOL) tablet 975 mg 975 mg Oral Q6H [facility] POOJA Arias 975 mg at 11/04/24 0457 [...] Nightly POOJA Arias 2 tablet at 11/03/24 2086 ALLERGIES: Allergies Allergen Reactions Lisinopril Other (See [...] not compromised This report was generated using [employer] Speaking dictation software. Although every attempt has been made by the provider to proofread this document, occasional misspellings and typographical errors Sign Chris Taylor MD, FIDSA, FACP [facility] Infectious Diseases Available via [employer] 11/04/2024 9:13 AM * Juaquin Kern MD [...] Diet Diabetic/ Calorie Controlled; Carb Counting 60g/meal 2513-6644 kcal Diet NPO; Meds DVT Px: SCDs - Bilateral (Knee High) Status: Full Code Consults placed: Procedures Inpatient consult to Internal Medicine Inpatient consult to Infectious Diseases (Specify provider ) Inpatient consult to Social Work Inpatient consult to Anesthesiology Inpatient consult to cardiology ([facility]) Barriers for discharge: IV antibiotics, fevers, [...] [x]OR booked: case request and [facility] OR first front ventilator notified [x]Abx salesperson stereo equipment to OR (2g ancef) []Pre-Op Noes to [...] General Information Admission Type inpatient Arrived From Non-Healthcr Initial Information Source of Information patient;health record Limitations on Visitors/Phone Calls none Designated Caregiver for Discharge Coordination Do You Have a Designated Caregiver for Discharge? yes Designated Caregiver's Name Blas Genao Caregiver's Relationship to Patient child Living Environment People in Home alone Current Living Arrangements home (1-level, [facility]) Primary Care Provided by self Provides Primary [...] were you homeless or living in a usp (including now)? N Food Insecurity Within the [...] In the past 12 months has the [employer], [place], oil, or water [employer] threatened to shut off services in your [...] 30 days Current Outpatient/Agency/Support Group homecare agency ([facility] - SN 3 weekly (wound care) & QUALITY CONTROL SPECIALIST x 2 weekly) Concerns to be Addressed home safety;discharge planning Patient/Family Anticipates Transition to home with help/services;inpatient rehabilitation facility Patient/Family Anticipated Services at Transition home health care;longterm;other (see comments) (inpatient rehab) Transportation Anticipated family or friend will provide;health plan transportation Current Discharge Risk physical impairment;lives alone;dependent with mobility/activities of daily living;chronically ill Discharge Coordination/Tasks Status Post Discharge Needs/Treatments PT;OT;Wound Care;Jail Home Visit 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 Placed on contact [...] PAD, RLS and CKD with presents to I inpatient floor for known left calc osteomyelitis [...] (she has seen patient in the past) -Software Sales Manager to be called for pre-amputation education/fitting in [...] PAD, RLS and CKD3 that presents to [facility] inpatient floor as a direct admit under [...] Objective Past Medical History: Diagnosis Date A-fib ([facility]) Acute osteomyelitis ([facility]) Atrial flutter ([facility]) Cardiac pacemaker 2016 Carotid atherosclerosis Charcot's joint of right foot 2015 Chronic sciatica Complete AV block ([facility]) Diabetes mellitus ([facility]) TYPE II Diabetic foot ulcer ([facility]) ED (erectile dysfunction) Edema ESBL (extended spectrum beta-lactamase) producing bacteria infection GERD (gastroesophageal reflux disease) GI bleed Hyperlipidemia Hypertension Leukocytosis Metabolic bone disease Multiple drug resistant organism (MDRO) culture positive Non healing left heel wound Obesity Osteoarthrosis Osteomyelitis of both feet ([facility]) PAD (peripheral artery disease) ([facility]) Primary osteoarthritis of knee Proteinuria Renal osteodystrophy Restless legs syndrome (RLS) no meds, lyrica helps Septic joint of left knee joint ([facility]) Sleep apnea BiPap Smoker Stage 3a chronic kidney disease (CKD) ([facility]) Past Surgical History: Procedure Laterality Date AMPUTATION [...] WOUND VAC; Surgeon: Dallas Camejo MD; Location: [facility] OR; Service: Orthopaedics; Laterality: Left; FOOT SURGERY Right x5 INCISION AND DRAINAGE FOOT Left [place] PROCEDURE MAZE AFIB OSTECTOMY CALCANEOUS Left 09/10/2024 Procedure: ANKLE PARTIAL CALCANECTOMY; Surgeon: Dallas Camejo MD; Location: [facility] OR; Service: Orthopaedics; Laterality: Left; wOUND PARTIALLY [...] Continuous Glucose Sensor (FreeStyle Wallace 3 Sensor) [facility] [place]JECT 1 DEVICE INTO THE SKIN EVERY [...] PAD, RLS and CKD with presents to [facility] inpatient floor for known left calc osteomyelitis [...] (she has seen patient in the past) -Software Sales Manager to be called for pre-amputation education/fitting in [...] PAD, RLS and CKD3 that presents to [facility] inpatient floor as a direct admit under [...] both feet (HCC) PAD (peripheral artery disease) ([facility]) Primary osteoarthritis of knee Proteinuria Renal osteodystrophy Restless legs syndrome (RLS) no meds, lyrica helps Septic joint of left knee joint ([facility]) Sleep apnea BiPap Smoker Stage 3a chronic kidney disease (CKD) ([facility]) Past Surgical History: Procedure Laterality Date AMPUTATION [...] WOUND VAC; Surgeon: Dallas Camejo MD; Location: [facility] OR; Service: Orthopaedics; Laterality: Left; FOOT SURGERY Right x5 INCISION AND DRAINAGE FOOT Left [place] PROCEDURE MAZE AFIB OSTECTOMY CALCANEOUS Left 09/10/2024 Procedure: ANKLE PARTIAL CALCANECTOMY; Surgeon: Dallas Camejo MD; Location: [facility] OR; Service: Orthopaedics; Laterality: Left; wOUND PARTIALLY [...] Continuous Glucose Sensor (FreeStyle Wallace 3 Sensor) [facility] INJECT 1 DEVICE INTO THE SKIN EVERY [...] tablet 975 mg 975 mg, PO, Q6H [facility] Ordered amiODARONE (PACERONE) tablet 200 mg 200 [...] the correct patient, procedure, equipment, system support administrator and site/side marked as required. Indications: vascular [...] Representatives. HCR- Blas and Jessica. Copy in [employer]. SW to f/u with pt this afternoon. Addendum: 1:30pm SASKIA met with pt today for support. Blas was sitting in his chair, open to visit. Very social and pleasant. Very future oriented with the hopes of a return to work, if he chooses based on his recovery. 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 He is anticipating rehab in a day [...] meets clinical indications for proline placement for mcc antibiotics in the setting of osteomyelitis and [...] guidelines to the screening nurse at ext: [phone] Please direct any questions regarding procedure time/ date to the specific imaging modality: US: ext: [id number] CT: ext: [id number] Fluoroscopy: ext: [id number] IR: ext: [phone] Consent: The patient is able to give [...] injection 5,000 Units On hold since Fri11/16/2024 [id number] until manually unheld; held by Herberth Whitmore [...] at 1.8mg/dL - regarding the question of usp PICC for Abx. This patient is high [...] History Past Medical History: Diagnosis Date A-fib ([facility]) Acute osteomyelitis ([facility]) Atrial flutter ([facility]) Cardiac pacemaker 2015 Carotid atherosclerosis Charcot's joint of right foot 2015 Chronic sciatica Complete AV block ([facility]) Diabetes mellitus ([facility]) TYPE II Diabetic foot ulcer ([facility]) ED (erectile dysfunction) Edema ESBL (extended spectrum beta-lactamase) producing bacteria infection GERD (gastroesophageal reflux disease) GI bleed Hyperlipidemia Hypertension Leukocytosis Metabolic bone disease Multiple drug resistant organism (MDRO) culture positive Non healing left heel wound Obesity Osteoarthrosis Osteomyelitis of both feet ([facility]) PAD (peripheral artery disease) Primary osteoarthritis of knee Proteinuria Renal osteodystrophy Restless legs syndrome (RLS) no meds, lyrica helps Septic joint of left knee joint ([facility]) Sleep apnea BiPap Smoker Stage 3a chronic kidney disease (CKD) ([facility]) Past Surgical History: Procedure Laterality Date AMPUTATION Right 2018 TMA AMPUTATION BELOW KNEE Left 11/05/2024 Procedure: LEFT BELOW KNEE AMPUTATION; Surgeon: Dallas Camejo MD; Location: [facility]; Service: Orthopaedics; Laterality: Left; AORTOGRAM- ABDOMINAL Left 09/15/2024 Procedure: LEFT LOWER EXTREMITY ANGIOGRAM; Surgeon: Delbert Mcintosh MD; Location: [facility] OR; Service: Peripheral Vascular; Laterality: Left; BARIATRIC SURGERY 2018 CARDIAC ELECTROPHYSIOLOGY STUDY AND ABLATION x5 CARDIAC PACEMAKER PLACEMENT 2016 CARDIAC SURGERY 2020 watchman device CARDIOVERSION 07/2024 CC PERIPHERAL ANGIOGRAPHY Left 07/2024 LE CHANGE DRESSING WOUND VAC Left 09/10/2024 Procedure: APPLICATION OF WOUND VAC; Surgeon: Dallas Camejo MD; Location: [facility] OR; Service: Orthopaedics; Laterality: Left; EXTRACTION LEAD(S) LASER FROM DUAL PM SYSTEM Left 11/17/2024 Procedure: Extraction lead(s) laser from dual PM system; [id number]; Surgeon: Rui Pabon MD; Location: [facility] OR; Service: Electrophysiology; Laterality: Left; FOOT SURGERY Right x5 INCISION AND DRAINAGE FOOT Left INSERT/REPLACE LEADLESS PACEMAKER N/A 11/17/2024 Procedure: Micra Leadless Pacemaker Insert/Replacement; [id number]; Surgeon: Rui Pabon MD; Location: [facility] OR; Service: Electrophysiology; Laterality: N/A; [place] PROCEDURE MAZE AFIB OSTECTOMY CALCANEOUS Left 09/10/2024 Procedure: ANKLE PARTIAL CALCANECTOMY; Surgeon: Dallas Camejo MD; Location: [facility] OR; Service: Orthopaedics; Laterality: Left; wOUND PARTIALLY [...] Continuous Glucose Sensor (FreeStyle Wallace 3 Sensor) [facility] INJECT 1 DEVICE INTO THE SKIN EVERY [...] empagliflozin (JARDIANCE) 25 mg On hold since [facility] 11/04/2024 at 1503 until manually unheld; held [...] injection 5,000 Units On hold since Fri11/16/2024 [id number] until manually unheld; held by Herberth Whitmore [...] tablet, PO, Daily Given, 1 tablet at 11/188 nicotine (NICODERM CQ) 21 MG/24HR patch 1 [...] mg, PO, Q3H PRN See Alternative, 11/19 449 HYDROmorphone (DILAUDID) tablet 4 mg (Or Linked Group #1) 4 mg, PO, Q3H PRN Given, 4 mg at 11/19 449 ipratropium-albuterol (DUONEB) 0.5-2.5 mg/3 mL nebulizer solution [...] found for: TACROLIMUS No results found for: [id number] , TOTVOL , CRCLR , PERIOD No [...] Sign: Anmol Reynoso MD 11/19/2024 10:09 AM [facility] Nephrology Office [phone] * Gilda May RN - 11/12/2024 3:31 PM EST [facility] Wound Care Consult Visit Date: 11/12/2024 Patient Name: Blas Genao Date of : 1960 Reason for Consult: initial Wound Team Summary Assessment: 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 Had been using [...] nighttime disruptions as medically appropriate. Maintain regular vjihh-gmls-fowxf including appropriate lighting in the room. Consider [...] limb. Per orders patient is to have agile scrum master on AAT, noted that residual limb was wrapped with srinivas wrap vs agile scrum master. Reached out to orthopedic PA in regards to agile scrum master for patient. Patient is motivated to participate [...] W/C, EMS transport and home PT. Current [facility] Basic Mobility Score: 14 OT 11/09 Summary: [...] with strength, balance and activity tolerance. Current [facility] Daily Activity Score: 15 Outcomes score [facility] The Activity Measure for Post-Acute Care (AM-PAC) [...] Smoker Stage 3a chronic kidney disease (CKD) ([facility]) Past Surgical History: Procedure Laterality Date AMPUTATION Right 2017 TMA AMPUTATION BELOW KNEE Left 11/05/2024 Procedure: LEFT BELOW KNEE AMPUTATION; Surgeon: Dallas Camejo MD; [facility] [facility]; Service: Orthopaedics; Laterality: Left; AORTOGRAM- ABDOMINAL [...] WOUND VAC; Surgeon: Dallas Camejo MD; [facility]; Service: Orthopaedics; Laterality: Left; FOOT SURGERY Right x5 INCISION AND DRAINAGE FOOT Left OH PROCEDURE MAZE AFIB OSTECTOMY CALCANEOUS Left 09/10/2024 Procedure: ANKLE PARTIAL CALCANECTOMY; Surgeon: Dallas Camejo MD; Location: [facility] OR; Service: Orthopaedics; Laterality: Left; wOUND PARTIALLY [...] Continuous Glucose Sensor (FreeStyle Wallace 3 Sensor) [facility] [place]JECT 1 DEVICE INTO THE SKIN EVERY [...] mg, PO, QAM Given, 10 mg at 02/12 0903 [Provider Held] empagliflozin (JARDIANCE) 25 mg [...] 2AM Given, 1 Units at 11/10 203 [Provider Held] insulin lispro (HumaLOG/ADMELOG) 100 units/mL [...] amputation. Left BKA with ampushield and stump agile scrum master Skin: No skin breakdown to exposed skin [...] Hazel MD Physical Medicine & Rehabilitation, PGY-2 [facility] Available on [employer] secure chat Associated attestation - Lucho Red [...] for wound vac changes. * Ana Huang, CRISTIAN - 11/10/2024 3:25 PM ESTAssociated Order(s): IP CONSULT TO NUTRITION SERVICES [facility] Nutrition Note Visit Type: initial assessment [...] ??? 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 He typically has an egg sandwich [...] - 2600 Kcals/day (20 - 25 Kcals/kg) Eolia: RMR (Eolia-St. Jeor Equation): 1920.63 Eolia-St. Jeor (Considerations): 8433-6190 kcal (MSJ +1.2-1.3) based on 104 kg (229 lb 4.5 oz) (reported dry weight) Protein Needs: 117 - 141 gm, (1.5 - 1.8g/kg) based on 78.1 kg (172 lb 2.9 oz) (Adjusted IBW) Fluids: 2500ml based on Estimated/Assessed Carbohydrates Needs: 75 g CHO/meal Current Diet: Diet Diabetic/ Calorie Controlled; Carb Counting 60g/meal 7128-9895 kcal; 2 gm NA (Low Sodium); 2 [...] to acute CHF Complete heart block s/p PPM-2015 Permanent atrial fibrillation/flutter s/p multiple ablations and Watchman device implantation 2017 Recommendation: Pending TATIANNA for further evaluation Further [...] Compared to previous outside study report from [facility] on 08/05/2024, Mitral and tricuspid regurgitation were [...] Smoker Stage 3a chronic kidney disease (CKD) ([facility]) Past Surgical History: Procedure Laterality Date AMPUTATION Right 2017 TMA AMPUTATION BELOW KNEE Left 11/05/2024 Procedure: LEFT BELOW KNEE AMPUTATION; Surgeon: Dallas Camejo MD; Location: [facility]; Service: Orthopaedics; Laterality: Left; AORTOGRAM- ABDOMINAL Left 09/15/2024 Procedure: LEFT LOWER EXTREMITY ANGIOGRAM; Surgeon: Delbert Mcintosh MD; Location: [facility]; Service: Peripheral Vascular; Laterality: Left; BARIATRIC SURGERY 2018 CARDIAC ELECTROPHYSIOLOGY STUDY AND ABLATION x5 CARDIAC PACEMAKER PLACEMENT 2016 CARDIAC SURGERY 2020 watchman device CARDIOVERSION 07/2024 CC PERIPHERAL ANGIOGRAPHY Left 07/2024 LE CHANGE DRESSING WOUND VAC Left 09/10/2024 Procedure: APPLICATION OF WOUND VAC; Surgeon: Dallas Camejo MD; Location: [facility]; Service: Orthopaedics; Laterality: Left; FOOT SURGERY Right x5 INCISION AND DRAINAGE FOOT Left OH PROCEDURE MAZE AFIB OSTECTOMY CALCANEOUS Left 09/10/2024 Procedure: ANKLE PARTIAL CALCANECTOMY; Surgeon: Dallas Camejo MD; Location: [facility]; Service: Orthopaedics; Laterality: Left; wOUND PARTIALLY [...] Continuous Glucose Sensor (FreeStyle Wallace 3 Sensor) [facility] INJECT 1 DEVICE INTO THE SKIN EVERY [...] mouth 2(two) times a day. [facility] acetaminophen, 975 mg, Oral, Q6H [...] assessment, and plan as detailed in the burn nurse's note with the following exceptions, clarifications, or [...] from the original note were not included. [facility] CARDIOLOGY SERVICE CONSULT Date of Consult: 11/04/2024 Patient's Primary Care Physician: Lee Fabian MD Physician Requesting Consult: Orthopedic surgery Primary Aluminum Pourer: Aluminum Pourer at [facility] Reason for Consultation: Preop Admit Date: 11/02/2024 [...] Objective Past Medical History: Diagnosis Date A-fib ([facility]) Acute osteomyelitis (HCC) Atrial flutter ([facility]) Cardiac pacemaker 2016 Carotid atherosclerosis Charcot's joint of right foot 2015 Chronic sciatica Complete AV block (HCC) Diabetes mellitus ([facility]) TYPE II Diabetic foot ulcer ([facility]) ED (erectile dysfunction) Edema ESBL (extended spectrum beta-lactamase) producing bacteria infection GERD (gastroesophageal reflux disease) GI bleed Hyperlipidemia Hypertension Leukocytosis Metabolic bone disease Multiple drug resistant organism (MDRO) culture positive Non healing left heel wound Obesity Osteoarthrosis Osteomyelitis of both feet ([facility]) PAD (peripheral artery disease) ([facility]) Primary osteoarthritis of knee Proteinuria Renal osteodystrophy Restless legs syndrome (RLS) no meds, lyrica helps Septic joint of left knee joint ([facility]) Sleep apnea BiPap Smoker Stage 3a chronic kidney disease (CKD) ([facility]) Reviewed Past Surgical History: Procedure Laterality Date AMPUTATION Right 2017 TMA AORTOGRAM- ABDOMINAL Left 09/15/2024 Procedure: LEFT LOWER EXTREMITY ANGIOGRAM; Surgeon: Delbert Mcintosh MD; Location: [facility]; Service: Peripheral Vascular; Laterality: Left; BARIATRIC SURGERY 2018 CARDIAC ELECTROPHYSIOLOGY STUDY AND ABLATION x5 CARDIAC PACEMAKER PLACEMENT 2016 CARDIAC SURGERY 2020 watchman device CARDIOVERSION 07/2024 CC PERIPHERAL ANGIOGRAPHY Left 07/2024 LE CHANGE DRESSING WOUND VAC Left 09/10/2024 Procedure: APPLICATION OF WOUND VAC; Surgeon: Dallas Camejo MD; Location: [facility] OR; Service: Orthopaedics; Laterality: Left; FOOT SURGERY Right x5 INCISION AND DRAINAGE FOOT Left OH PROCEDURE MAZE AFIB OSTECTOMY CALCANEOUS Left 09/10/2024 Procedure: ANKLE PARTIAL CALCANECTOMY; Surgeon: Dallas Camejo MD; Location: [facility]; Service: Orthopaedics; Laterality: Left; wOUND PARTIALLY [...] PO, BID Given, 100 mg at 11/04 756 donepezil (ARICEPT) tablet 10 mg 10 mg, [...] mg, PO, BID Given, 50 mg at 02/06 0757 PANTOprazole (PROTONIX) EC tablet 40 mg 40 mg, PO, Daily Given, 40 mg at 11/04 0756 [Provider Held] pravastatin (PRAVACHOL) tablet 20 mg [...] BID Given, 150 mg at 11/04 075 senna (SENOKOT) tablet 2 tablet 2 tablet, PO, Nightly Given, 2 tablet at 11/03 2232 Continuous Medication Ordered Dose/Rate, Route, Frequency Last [...] 4x Daily PRN Given, 750 mg at 02/04 1856 ondansetron (ZOFRAN-ODT) disintegrating tablet 4 mg [...] 1243 11/04/24 1050 11/04/24 0726 11/02/24 2119 11/02/24 2000 SODIUM mmol/L -- [...] 9 bpm Confirmed by MD Danya, Deep ([id number]) on 11/03/2024 4:30:25 PM Echocardiogram (TTE) Comprehensive [...] Compared to previous outside study report from [facility] on 08/05/2024, Mitral and tricuspid regurgitation were not previously reported. Recommend transesophageal echocardiogram if clinically indicated. All additional appropriate imaging studies within the past 24 hours reviewed - images reviewed and independently interpreted. Sign: Nitish Stephen MD [facility] [place] 11/04/2024 3:31 PM * Hilda Almodovar, [facility] - 11/04/2024 10:57 AM ESTAssociated Order(s): [...] has a past medical history of A-fib ([facility]), Acute osteomyelitis ([facility]), Atrial flutter (HCC),Cardiac pacemaker (2015), Carotid atherosclerosis, Charcot's joint of right foot (2014), Chronic sciatica, Complete AV block ([facility]), Diabetes mellitus ([facility]), Diabetic foot ulcer ([facility]), ED (erectile dysfunction), Edema, ESBL (extended spectrum beta-lactamase) producing bacteria infection, GERD (gastroesophageal reflux disease), GI bleed, Hyperlipidemia, Hypertension, Leukocytosis, Metabolic bone disease, Multiple drug resistant organism (MDRO) culture positive, Non healing left heel wound, Obesity, Osteoarthrosis, Osteomyelitis of both feet (HCC), PAD (peripheral artery disease) ([facility]), Primary osteoarthritis of knee, Proteinuria, Renal osteodystrophy, Restless legs syndrome (RLS), Septic joint of left knee joint (HCC), Sleep apnea, Smoker, and Stage 3a chronic kidney disease (CKD) (HCC). Patient has a past surgical history that includes Incision and drainage foot (Left); Bariatric Surgery(2018); Cardioversion (07/2024); Cardiac pacemaker placement (2016); Amputation [...] and supports. Pt has been working at [employer] in [place] [place] up until recently. He shared he is deemed disabledunder Social Security Disability though has been working under ticket to work program. Pt states does not anticipate being able to return to his line of work and states he will get mcc disability. Discussed [place] Paid Leave. Pt states [...] Gave pt info and literature on TA [facility] [employer]. Pt is familiar with this service though has not used it. He was glad to have the information. Thereis no application process for this service. Anyone 60 or older that lives within [employer]'s service area can use it and make reservations at [phone]. Pt indicates being able to facilitate rides [...] Patient Psychosocial History Demographic Information Preferred Language: American Preferred Name: Blas Relationship status: Single Children: Blas Genao Adult Son Legal next of kin [phone] Advance Directive Advance Directives:Advance Directives Does Patient Have Advance Directives?: yes Living Will: yes, copy requested Healthcare Inventory Worker: yes, copy requested Legally Authorized Inventory Worker Blas Genao Adult Son Legal next of kin [phone] Living Environment Household Members: pt and 3 pet cats Living Arrangements: House Does the patient have any environmental/safety concerns? No Support System Who currently provides assistance/support for the patient? Son , friends Also has homecare svs [facility] Quality of support systems? Supportive Patient provides [...] from the original note were not included. [facility] INFECTIOUS DISEASE CONSULTATION Date of Consult: [...] Negative 10/27: Left foot wound culture at [place]: MRSA, Enterococcus faecalis, VRE, Corynebacterium speciesand gram-negative [...] Orders 11/02/241942 Sign Ena Mtz MD, FACP, [facility] Infectious Diseases Available via [employer] SUBJECTIVE HISTORY OF PRESENT ILLNESS: This is a 63 y.o. year-old male complex medical history of atrial fibrillation, cardiac pacemaker, Watchman device, diabetes type II, history of ESBL infection, peripheral vascular disease, chronic kidney disease, diabetic foot infection/osteomyelitis, status post right TMA, recent hospitalization at [facility] for left diabetic foot infection. He underwent debridement of the left foot on 08/22 and repeat debridement on 08/24. Intraoperative cultures then revealed Enterococcus, ESBL E. coli and was treated with amoxicillin, meropenem and Flagyl. Fernanda parapsilosis was thought to be a contaminant. He was admitted to [facility] and underwent left calcaneus ostectomy on [...] HISTORY: Past Medical History: Diagnosis Date A-fib ([facility]) Acute osteomyelitis ([facility]) Atrial flutter ([facility]) Cardiac pacemaker 2016 Carotid atherosclerosis Charcot's joint of right foot 2015 Chronic sciatica Complete AV block ([facility]) Diabetes mellitus ([facility]) TYPE II Diabetic foot ulcer ([facility]) ED (erectile dysfunction) Edema ESBL (extended spectrum beta-lactamase) producing bacteria infection GERD (gastroesophageal reflux disease) GI bleed Hyperlipidemia Hypertension Leukocytosis Metabolic bone disease Multiple drug resistant organism (MDRO) culture positive Non healing left heel wound Obesity Osteoarthrosis Osteomyelitis of both feet ([facility]) PAD (peripheral artery disease) ([facility]) Primary osteoarthritis of knee Proteinuria Renal osteodystrophy Restless legs syndrome (RLS) no meds, lyrica helps Septic joint of left knee joint ([facility]) Sleep apnea BiPap Smoker Stage 3a chronic kidney disease (CKD) ([facility]) PAST SURGICAL HISTORY: Past Surgical History: Procedure [...] WOUND VAC; Surgeon: Dallas Camejo MD; Location: [facility] OR; Service: Orthopaedics; Laterality: Left; FOOT SURGERY Right x5 INCISION AND DRAINAGE FOOT Left OH PROCEDURE MAZE AFIB OSTECTOMY CALCANEOUS Left 09/10/2024 Procedure: ANKLE PARTIAL CALCANECTOMY; Surgeon: Dallas Camejo MD; Location: [facility] OR; Service: Orthopaedics; Laterality: Left; wOUND PARTIALLY [...] not compromised. This report was generated using [employer] Speaking dictation software. Although every attempt has been made by the provider to proofread this document, occasional misspellings and typographical errors may still be present. documented in this encounter Miscellaneous Notes * Plan of Care - Mitesh Caldwell RN - 11/25/2024 7:51 PM EST Patient being discharged home with home services. Patient has a proline and will require mcc antibiotics. Option care educated patient on home [...] Aguilar RD - 11/24/2024 12:27 PM EST [facility] Nutrition Note Visit Type: follow up assessment Reason for Dietitian/DTR Visit: at nutrition risk. Reason for Admission: Acute osteomyelitis of left calcaneus (HCC) Pertinent Medical History: Past Medical History: Diagnosis Date A-fib ([facility]) Acute osteomyelitis (HCC) Atrial flutter (HCC) Cardiac [...] adjusted Nutrition Plan for Discharge/Transfer: [facility] with ONS prn Nutrition Assessment: Nutrition following. 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 He typically has an egg sandwich [...] Aspiration precautions Diet Cardiac; Carb Counting 60g/meal 5569-8797 kcal; 2 gm NA (Low Sodium); Low [...] to be available at inpatient rehab for manager occupational antibiotics. Call ling within reach, safety precautions [...] IV antibiotics continue. Pending placement at [facility] for d/c. Call lnig within reach, safety precautions maintained. Nelson Iqbal 11/23/2024 7:15 PM * Plan of Care - Ellyn Patel RN - 11/23/2024 8:07 AM EST Plan of Care Reviewed With: patient Outcome Evaluation: Patient without complaints during the shift. Sleep study completed on room air.Plan is for discharge to inpatient rehab for mcc antibiotics when bed is available. Ellyn Patel [...] of Care Review Outcome: Progressing Vpaced on djdbhuy-Rbwimvve-tthawbl on IV Cubicin andIV Rocephin-Plan for PICC placement ?today for mcc anti-Bx's-see flowsheet for full assessment/vs Hansa Navarro [...] from the original note were not included. [address] [id number] OPERATIVE REPORT Patient Name: Blas Genao Date of : 1960 Date of Procedure: 11/17/2024 Surgeons and Role: * Rui Pabon MD - Primary * Corbin Lamb APRN - Physician Chemical Dependency Attendant Pre-op Diagnosis: Pacemaker infection, subsequent encounter [T82.7XXD] Post-Op Diagnosis Codes: * Pacemaker infection, subsequent encounter [T82.7XXD] Details of Procedure Procedure(s): Extraction lead(s) laser from dual PM system; 15346 Micra Leadless Pacemaker Insert/Replacement; 69764 Additional Procedures Surgeon: Rui Pabon MD Chemical Dependency Attendant: : : Corbin Lamb APRN Anesthesia: Monitor [...] femoral venous access was obtained. A 12 New Zealander sheath was placed in the right femoral vein. Through this an Amplatz stiff wire was advanced under fluoroscopic visualization to the right IJ. Using ultrasound-guided Seldinger technique left femoral venous access was obtained. 8 New Zealander sheath was placed in left femoral vein. [...] were pulled back. Active-fixation mechanisms on both [id number] active-fixation leads were retracted. Leads were cut. EZ interlocking stylette's were placed down both right atrial right ventricular leads and deployed. External silk sutures were used for additional support. We then began with a 14 New Zealander laser sheath. Under fluoroscopic visualization we started with the right ventricular lead. 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 We were able to progressto the innominate area. Here we reached the innominate region and had significant fibrosis. We then remove the 14 New Zealander laser sheath and moved to the right [...] then used the right femoral venous 12 New Zealander sheath and Amplatz wire which was in [...] ventricle positioning on the septum. ADAME and UKRAINIAN position confirmed our placement.We did an initial deployment here. Sensing of paced R wave was 12 mV. Device impedance was 520 ohms. Threshold was initially 1.5 V that decreased to 1.2 V. However remained at 1.2 V at 0.24 ms. We therefore retrieved the device back into the deploying sheath. We then movedthe device slightly superior. ADAME and UKRAINIAN position to confirm septal position. Initial testing [...] Z stitch was placed around the 8 New Zealander sheath as well and the sheath was [...] Implant Name Type Inv. Item Serial No. Zipper Measurer Lot No. LRB No. Used Action [id number] PACEMAKER CARDIAC MICRA AV2 LDLS BN - [id number] Pacemaker [id number] PACEMAKER CARDIAC MICRA AV2 LDLS BN [id number] [employer] Left 1 Implanted Specimens: Dual-chamber pacemaker generator; chronic right atrial 5076 active- fixation Medtronic lead; chronic right ventricular 5076 active-fixation Medtronic lead; 2 sewing rings. 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 Jeor Equation): 1920.63 Eolia-St. Jeor (Considerations): 7566-9480 kcal (MSJ +1.2-1.3) based on 104 kg [...] able to make needs known. NPO at [place] for pacemaker extraction. Placed on 1L NC [...] with Dr. Daniel Ramos MD Neurology PGY-2 [facility] * Hospital Course - Gianluca Calles [...] weaned to 3L NC. Patient went for ATTIANNA in PM of 11/11 and was transferredto [...] while on IV antibiotics. Fax results to [phone]. Patient will need to be scheduled [...] 6:19 PM * Provider Documentation Query - Frdei Powers MD - 11/15/2024 6:53 AM EST Provider Documentation Clarification: Please document on query form within 24 hours. The medical record reflects: Right Foot Plantar Pressure Ulcer Documented clinical findings: 11/11 Physical Medicine Consult Wound consult placed due to pressure ulcer on plantar aspect of R foot. 11/22 Wound RN Consult 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 Had been using [...] at discharge summary. Tracy Lopez RN, CDS [phone] * Plan of Care - Eunice Khan [...] be decided. * Plan of Care - Chrales Traylor RN - 11/12/2024 6:07 AM EST [...] no change Outcome Evaluation: Assumed care from [id number]. Pt alert and oriented x4. Seems to [...] pacer wire. Central line placed for access / not a PICC candidate yet. O2 requirements [...] Case IDs Date Procedure Surgeon Location Status [id number] 11/05/24 LEFT BELOW KNEE AMPUTATION Dallas Camejo [...] participates appropriately in exam - Last drink 2/4, no tox screen done on admission - Continue scheduled tylenol 975mg Q6h for pain, Robaxin 1000 mg QID, Lyrica 150 mg TID - Continue Dilaudid 2 mg Q3h PRN for moderate pain (x2 overnight), 4 mg q3h PRN for severe pain ([id number]). 1x dose of liquid dilaudid 1mg given [...] - Continue nicotine patch - Repeat CXR 2/12 PM with improving bilateral pulmonary congestion, final [...] Compared to previous outside study report from [facility] on 08/05/2024, Mitral and tricuspid regurgitation were [...] help guide diuresis if he returns to [place] before transfer. If he goes directly to [...] options, pt agreeable to referrals in the [facility] area. Referrals placed to [facility] rehabs Recommendation:inpt rehab Problem: Adult [...] Compared to previous outside study report from [facility] on 08/05/2024, Mitral and tricuspid regurgitation were [...] DVT prophylaxis - Left leg tissue/bone pathology 2/7: pending ID: Left calcaneal osteomyelitis/diabetic foot s/p [...] legal medical record Tracy Lopez RN, CDS [phone] * Provider Documentation Query - Shay Martin [...] legal medical record. Tracy Lopez RN, CDS [phone] * Plan of Care - Krystina Felipe [...] in [place] d/t need for rescue NIV. [facility] 16 on 11/06-will needupdated PT/OT notes, pt active with [facility], may need inpt rehab. CM will [...] direct admit with plans for left BKA 10/31 calcaneal osteomyelitis s/p calcaneal ostectomy 08/2024 with [...] Compared to previous outside study report from [facility] on 08/05/2024, Mitral and tricuspid regurgitation were [...] Grossly normal, A+O x3 Labs: Recent Labs 11/06/2445711/07/2481211/08/24 0005 WBC 11.9* 12.4* 13.1* HGB 8.7* 8.9* 7.9* HCT 27.9* 28.9* 25.6* PLT 346 430 378 MCV 92 92 91 MCH 28.5 28.2 27.9 MCHC 31.2 30.8 30.9 RDW 16.4* 16.7* 16.9* BASOABS 0.01 -- -- Recent Labs 11/06/2445711/07/24 0811/07/24 1236 11/07/24 1612 11/08/24 0005 BUN 48* [...] Q8H New Bag, 2 g at 11/08 05 buPROPion (WELLBUTRIN SR) 12 hr tablet 150 [...] PO, Daily Given, 2,000 Units at 11/07 08 cyanocobalamin (VITAMIN B-12) tablet 2,500 mcg 2,500 mcg, PO, Daily Given, 2,500 mcg at 11/07 814 DAPTOmycin (CUBICIN) 975 mg in sodium chloride (NS) 0.9 % 50 mL IVPB 10 mg/kg, IV, Q24H Stopped, 02/09 1800 donepezil (ARICEPT) tablet 10 mg 10 [...] to prior. Interpreted by: Roberto Tolbert MD Fitting Room Operator XR Chest 1 view-Portable (STAT) Final Result Bilateral reticulonodular opacities concerning for interstitial edema. Superimposed atypical infection cannot be ruled out. Interpreted by: David Vogt DO Fitting Room Operator I personally reviewed the images and the resident's preliminary report and AGREE with the report as it is now presented ([id number]). Echocardiogram (TTE) Comprehensive (Contrast PRN) Final Result Transesophageal Echocardiogram (Results Pending) CT Head w/contrast (Results Pending) Rafiq Chakraborty MD PGY-3 [facility] Internal Medicine [place] text preferred 11/07/24 11:26 AM * Plan [...] LBM 2/8. 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 Pt reporting adequate paincontrol this [...] level of independence with self-care tasks. Baseline [facility] Daily Activity Score: 24 Current [facility] Daily Activity Score: 18 Objective Data Cognitive Status: Alert+oriented x4, follows multi step instructions and communicates appropriately Cognitive Function: Attention: intact Memory/recall: intact Safety Awareness: intact, however would benefit from further education and training Insight: good, however would benefit from further education and technology training associate Function: intact Activities of Daily Living: Grooming/Oral [...] Smoker Stage 3a chronic kidney disease (CKD) ([facility] [facility] Past Surgical History: Procedure Laterality Date AMPUTATION [...] WOUND VAC; Surgeon: Dallas Camejo MD; [facility]; Service: Orthopaedics; Laterality: Left; FOOT SURGERY Right x5 INCISION AND DRAINAGE FOOT Left OH PROCEDURE MAZE AFIB OSTECTOMY CALCANEOUS Left 09/10/2024 Procedure: ANKLE PARTIAL CALCANECTOMY; Surgeon: Dallas Camejo MD; [facility]; Service: Orthopaedics; Laterality: Left; wOUND PARTIALLY [...] lives alone. reports good friend supportand suportive sonerna Patient Goals (Occupational Profile) to return home [...] Progressive Mobility Level Achieved Transferring to Chair [facility] Daily Activity Putting on and taking off Lower Body Clothing? 2 Bathing (including washing/rinsing/drying)? 3 Toileting (includes using toilet, bedpan, or urinal)? 2 Putting on and taking off upper body clothing? 4 Taking care of personal grooming such as brushing teeth? 3 Eating meals? 4 [facility] Daily Activity Score 18 Therapy Assessment/Plan (OT) [...] OT goal 1 Bathing Goal 1 (OT) [place] Level/Cues Needed (Bathing Goal 1, OT) modified independence Activity/Device (Bathing Goal 1, OT) bathing skills, all Time Frame (Bathing Goal 1, OT) 2 weeks Dressing Goal 1 (OT) Activity/Device (Dressing Goal 1, OT) lower body dressing Time Frame (Dressing Goal 1, OT) 1 week [place]/Cues Needed (Dressing Goal 1, OT) modified independence Toileting Goal 1 (OT) Activity/Device (Toileting Goal 1, OT) toileting skills, all Time Frame (Toileting Goal 1, OT) 1 week [place] Level/Cues Needed (Toileting Goal 1, OT) modified [...] from the original note were not included. [facility] [address] [place] [id number] OPERATIVE REPORT Patient Name: Blas Genao Date [...] thigh, and preoperative timeout was called. After elevationexsanguination, the thigh tourniquet was inflated to 250 [...] specimen. Redundant musculature was sharply excised, and theneurovascular bundles were carefully identified, tied off with 0 Vicryl, and neurectomies performedwith distal traction and proximal resection. Tourniquet was let down, and bleeding hemostasis was achieved with snap, cautery, and 0 Vicryl ties. I was pleased with hemostasis achieved. There is no evidence of proximal infection. Fascia of the deep posterior compartment was brought over the end of the tibia, which had been chamfered with a saw at the anterior bevel. Fascial fascial tenodesis closu re was performed with 0 Vicryl, obtaining a watertight seal over the deep posterior compartment andlevel of bony resection. A drain was placed in this deep compartment, brought out to the anterolateral soft tissues of the leg. Wound had been carefully irrigated, and then closed in a layered fashion with 0 Vicryl, 2-0 Vicryl, and josafat for [...] Type Source Tests Collected by Time Destination [id number] : Left leg below the knee amputation [...] Findings: see op note Anesthesia: general Staff: [employer] And [employer] Balancing Technician: Mary Emery RN Scrub Precepting: Binta Griffith CST [employer] And [employer] Balancing Technician Relief: Cynthia Desai RN Estimated Blood Loss: * No values recorded between 11/05/2024 2:06 PM and 11/05/2024 3:22 PM * Specimens: ID Type Source Tests Collected by Time Destination [id number] : Left leg below the knee amputation Bone with Tissue Leg, left PATHOLOGY REPORT Dallas Camejo MD 11/05/2024 [address] Date: 11/05/2024 Time: 3:32 PM Procedure(s): LEFT BELOW KNEE AMPUTATION Orthopedics Brief Op Note Blas Roxanna Sebastien 11/02/2024 - 11/05/2024 Pre-op Diagnosis: Acute osteomyelitis of left calcaneus (HCC) [M86.172] Post-Op Diagnosis Codes: * Acute osteomyelitis of left calcaneus (HCC) [M86.172] Procedure(s) (LRB): LEFT BELOW KNEE AMPUTATION (Left) Surgeon(s): SHUBHAM Triana MD Anesthesia: general Staff: [employer] Balancing Technician: Mary Emery RN Scrub Precepting: Binta Griffith CST Air And Hydronic Balancing Technician Relief: Cynthia Desai RN Estimated Blood Loss: 25 ml Specimens: ID Type Source Tests Collected by Time Destination [id number] : Left leg below the knee amputation [...] cards Consults: Needs a postop eval from [facility]. Already being followed by ID, cards, and [...] Plan for OR today. Will have TATIANNA. Surgical Supplies Sterilizer to follow Naveen Kebede 11/05/2024 9:29 AM [...] doing TATIANNA first is not going to change management director. Leg wounds are like the source that has now seeded the valves and likely have involved thePPM. Will eventually need PP, evaluation and extraction afterwards. - Proceed with BKA - ABx per ID - Will need TATIANNA afterwards - Consider CT head to rule out septic emboli to brain petty with acute mental status change. Nitish Stephen MD [facility] T: [phone] F: [phone] Main Office: [address] [place] [address] * Provider Documentation Query - Juaquin Kern [...] at discharge summary. Tracy Lopez RN, CDS [phone] * Plan of Care - Belkys Diaz [...] Care Review Outcome: Progressing Flowsheets (Taken 11/04/2024 1108) Plan of Care Reviewed With: patient Progress: [...] Note Assessment completed with patient and/or patient's advertising representative, medical record review and discussion with clinical team. CC met with the patient using social distancing. Provided a Case Coordination packet with contact information, CC pamphlet and Your Next Step: Care Outside the Hospital brochure to the patient and/or patient advertising representative. Summary: 63 yo M admitted for [...] home health services. Patient is active with [facility] for SN & [facility]AL[facility] CONTROL SPECIALIST svs. 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[employer] - [employer] requested ID plan PT/OT evals [...] at Transition: (inpatient rehab) home health care longterm other (see comments) Patient/Family Anticipates Transition to: home with help/services inpatient rehabilitation facility Current Outpatient/Agency/Support Group: (Driss KEITAA - SN 3 weekly (wound care) & QUALITY CONTROL SPECIALIST x 2 weekly) homecare agency [facility] [...] Info) Description 12/07/2024 1:30 PM EDT Appointment [facility] [place] - Electrophysiology [address] [place] [phone] Gretel Hinds, WINDOW FRAMER [address] [address] 12/14/2024 2:00 PM EDT [facility] Visit [facility] [address] [place] [phone] Dallas Camejo MD [address] [place] [address] 12/16/2024 8:30 AM EDT Office Visit [facility] Infectious Disease [address] [place] [phone] Ena Mtz MD [address] [place] [address] Pending Results Name Type Priority Associated Diagnoses [...] AM EST PM SINGLE LEAD EVAL WITH PROGRAM,[id number] Routine 11/18/2024 7:45 AM EST COMPLETE BLOOD [...] Guido Malagon MD - 11/17/2024 1:50 PM [place] note is in progress. ? ? Right [...] EST PM DUAL LEAD EVAL WITH PROGRAMMING, [id number] Routine 11/12/2024 1:15 PM EST POCT GLUCOSE, [...] EST PM DUAL LEAD EVAL WITH PROGRAMMING, [id number] Routine 11/11/2024 4:33 PM EST ECHOCARDIOGRAM TRANSESOPHAGEAL [...] CARE TEST O RDGHANSHYAM Performing Organization Address [facility] Phone Number [facility] See Below * (ABNORMAL) POCT Glucose, Fingerstick (11/25/2024 8:40 AM EST) POC Glucose 150(H) 65 - 99 mg/dL 11/25/2024 8:41 AM EST Blood specimen / Unknown 11/25/2024 8:40 AM EST 11/25/2024 8:41 AM EST Dallas Camejo MD POINT OF CARE TEST O RDERABLES Performing Organization Address [facility] Co nm Phone Number HOSPITAL LAB See Below * (ABNORMAL) POCT Glucose, Fingerstick (11/24/2024 4:56 PM EST) POC Glucose 105(H) 65 - 99 mg/dL 11/24/2024 5:00 PM EST Blood specimen / Unknown 11/24/2024 4:56 PM EST 11/24/2024 5:00 PM EST Dallas Camejo MD POINT OF CARE TEST O RDERALUCLILE Performing Organization Address [facility]/ZIP Co de Phone Number HOSPITAL LAB [...] CARE TEST O RDERABLES Performing Organization Address [facility] Co [facility] See Below * (ABNORMAL) POCT Glucose, Fingerstick (11/24/2024 7:52 AM EST) POC Glucose 103(H) 65 - 99 mg/dL 11/24/2024 8:11 AM EST Blood specimen / Unknown 11/24/2024 7:52 AM EST 11/24/2024 8:11 AM EST Dallas Camejo MD POINT OF CARE TEST O RDERABLES Performing Organization Address [facility] Co [facility] See Below * (ABNORMAL) Complete Blood Count WITHOUT Differential - in AM (11/24/2024 6:56 AM EST) White Blood Cell Count 10.0 4.0 - 11.0 Thou/uL 11/24/2024 9:[address] [facility] Platelet Count 366 150 - 450 Thou/uL 11/24/2024 9:[address] [facility] Hemoglobin 9.0(L) 13.0 - 17.7 g/dL 11/24/2024 9:[address] [facility] Hematocrit 29.5(L) 39.0 - 54.0 % 11/24/2024 9:[address] [facility] Red Blood Cell Count 3.25(L) 4.50 - 6.20 Mil/uL 11/24/2024 9:[address] [facility] MCV 91 80 - 100 fL 11/24/2024 9:[address] [facility] MCH 27.7 27.0 - 31.0 pg 11/24/2024 9:[address] [facility] MCHC 30.5 30.0 - 36.0 g/dL 11/24/2024 9:[address] [facility] RDW 18.0(H) 11.5 - 14.5 % 11/24/2024 9:[address] [facility] MPV 10.8 7.5 - 12.5 fL 11/24/2024 9:[address] [facility] Blood Blood specimen / Unknown 11/24/2024 6:56 AM EST 11/24/2024 8:52 AM EST Gianluca Calles MD [place] [address], [place] [address] * (ABNORMAL) Comprehensive Metabolic Panel (AM) (11/24/2024 6:56 AM EST) Glucose 99 65 - 99 mg/dL 11/24/2024 9:[address] [facility] Comment:Fasting: <100 mg/dL, Non-Fasting: <200 mg/dL (ADA 2004) Blood Urea Nitrogen (BUN) 35(H) 8 - 21 mg/dL 11/24/2024 9:[address] [facility] Creatinine 1.6(H) 0.5 - 1.3 mg/dL 11/24/2024 9:[address] [facility] eGFR 48(L) >59 11/24/2024 9:[address] [facility] Comment:CKD-EPI (2020) in mL /min/1.73 sq meters. Sodium 139 136 - 145 mmol/L 11/24/2024 9:[address] [facility] Potassium 3.8 3.4 - 5.3 mmol/L 11/24/2024 9:[address] [facility] Chloride 102 98 - 107 mmol/L 11/24/2024 9:[address] [facility] CO2 24 22 - 33 mmol/L 11/24/2024 9:[address] [facility] Calcium 8.9 8.7 - 10.5 mg/dL 11/24/2024 9:[address] [facility] Alkaline Phosphatase 97 45 - 128 U/L 11/24/2024 9:[address] [facility] Aspartate Aminotrans (AST) 14 10 - 55 U/L 11/24/2024 9:[address] [facility] Alanine Aminotrans (ALT) 20 10 - 55 U/L 11/24/2024 9:[address] [facility] Bilirubin, Total 0.2 0.2 - 1.0 mg/dL 11/24/2024 9:[address] [facility] Protein, Total 6.7 6.3 - 8.3 g/dL 11/24/2024 9:[address] [facility] Albumin 3.1(L) 3.4 - 4.8 g/dL 11/24/2024 9:[address] [facility] BUN/Creatinine Ratio 22 10.0 - 25.0 Ratio 11/24/2024 9:[address] [facility] Globulin 3.6 1.5 - 3.9 g/dL 11/24/2024 9:[address] [facility] Albumin/Globulin Ratio 0.9(L) 1.0 - 3.0 Ratio 11/24/2024 9:[address] [facility] Anion Gap 13 7 - 17 11/24/2024 9:[address] [facility] Blood Blood specimen / Unknown 11/24/2024 6:56 AM EST 11/24/2024 8:52 AM EST Gianluca Calles MD LAB BLOOD ORDERABLES [address] [address], [address] [address] * (ABNORMAL) POCT Glucose, Fingerstick (11/23/2024 8:48 PM EST) POC Glucose 116(H) 65 - 99 mg/dL 11/23/2024 8:49 PM EST Blood specimen / Unknown 11/23/2024 8:48 PM EST 11/23/2024 8:49 PM EST Dallas Camejo MD POINT OF CARE TEST O RDERALUCILLE Performing Organization Address [facility] See Below * POCT Glucose, Fingerstick (11/23/2024 4:35 PM EST) POC Glucose 84 65 - 99 mg/dL 11/23/2024 4:36 PM EST Blood specimen / Unknown 11/23/2024 4:35 PM EST 11/23/2024 4:36 PM EST Dallas Camejo MD POINT OF CARE TEST O RDERALUCILLE Performing Organization Address [facility] See Below * (ABNORMAL) POCT Glucose, Fingerstick (11/23/2024 11:35 AM EST) POC Glucose 151(H) 65 - 99 mg/dL 11/23/2024 11:36 AM EST Blood specimen / Unknown 11/23/2024 11:35 AM EST 11/23/2024 11:36 AM EST Dallas Camejo MD POINT OF CARE TEST O RDERALUCILLE Performing Organization Address [facility] See Below * Influenza A/B, RSV, SARS-CoV-2 BALJINDER Multiplex (FLUVID) (11/23/2024 10:45 AM EST) Pathologist [facility] Influenza A Virus Not Detected Not Detected 11/23/2024 12:[address] [facility] Influenza B Virus Not Detected Not Detected 11/23/2024 12:[address] [facility] SARS-CoV-2 Not Detected Not Detected 11/23/2024 12:[address] [facility] Respiratory Syncytial Virus Not Detected Not Detected 11/23/2024 12:[address] [facility] Comment Negative results do not preclude SARS-CoV-2, Influenza or RSV infection and should not be used as the sole basis for treatment or other patient management decisions. 11/23/2024 12:00 PM EST [facility] Swab, Nasopharyngeal Nasopharyngeal swab / Unknown 11/23/2024 10:45 AM EST 11/23/2024 11:08 AM EST Gianluca Calles MD MICROBIOLOGY - GENER AL ORDERABLES Performing Organization Address [facility] Co de Phone Number [address] [address], [address] [address] * (ABNORMAL) POCT Glucose, Fingerstick (11/23/2024 7:34 AM EST) POC Glucose 126(H) 65 - 99 mg/dL 11/23/2024 7:35 AM EST Blood specimen / Unknown 11/23/2024 7:34 AM EST 11/23/2024 7:35 AM EST Dallas Camejo MD POINT OF CARE TEST O RDERABLES Performing Organization Address [facility] Co de Phone Number HOSPITAL LAB See Below * (ABNORMAL) C-REACTIVE PROTEIN (11/23/2024 6:43 AM EST) C-Reactive Protein 4.88(H) 0 - 0.49 mg/dL 11/23/2024 11:53 AM EST [facility] 11/23/2024 6:43 AM EST 11/23/2024 6:49 AM EST Gianluca Calles MD LAB BLOOD ORDERABLES Performing Organization Address [facility] Co de Phone Number [address] [address], [address] [address] * (ABNORMAL) Erythrocyte Sedimentation Rate (ESR) (11/23/2024 6:43 AM EST) Erythrocyte Sediment Rate (ESR) 62(H) <20 MM/HR 11/23/2024 12:07 PM EST [facility] Blood specimen / Unknown 11/23/2024 6:43 AM EST 11/23/2024 6:49 AM EST Gianluca Calles MD [place] [address], [address] [address] * (ABNORMAL) HEPATIC FUNCTION PANEL (11/23/2024 6:43 AM EST) Alkaline Phosphatase 103 45 - 128 U/L 11/23/2024 11:[address] [facility] Aspartate Aminotrans (AST) 22 10 - 55 U/L 11/23/2024 11:[address] [facility] Alanine Aminotrans (ALT) 28 10 - 55 U/L 11/23/2024 11:[address] [facility] Bilirubin, Total 0.2 0.2 - 1.0 mg/dL 11/23/2024 11:[address] [facility] Protein, Total 6.6 6.3 - 8.3 g/dL 11/23/2024 11:[address] [facility] Albumin 3.1(L) 3.4 - 4.8 g/dL 11/23/2024 11:[address] [facility] Bilirubin, Direct 0.1 0 - 0.2 mg/dL 11/23/2024 11:[address] [facility] Globulin 3.5 1.5 - 3.9 g/dL 11/23/2024 11:[address] [facility] Albumin/Globulin Ratio 0.9(L) 1.0 - 3.0 Ratio 11/23/2024 11:[address] [facility] 11/23/2024 6:43 AM EST 11/23/2024 6:49 AM EST Gianluca Calles MD LAB BLOOD ORDERABLES [address] [address], [address] [address] * CREATINE KINASE (CK) (11/23/2024 6:43 AM EST) Creatine Kinase (CK) 36 24 - 204 U/L 11/23/2024 11:[address] [facility] 11/23/2024 6:43 AM EST 11/23/2024 6:49 AM EST Gianluca Calles MD LAB BLOOD ORDERABLES Performing Organization Address City/[facility]/ZIP Co de Phone Number [address] [address], [address] [address] * (ABNORMAL) Complete Blood Count WITHOUT Differential - in AM (11/23/2024 6:43 AM EST) White Blood Cell Count 10.8 4.0 - 11.0 Thou/uL 11/23/2024 7:[address] [facility] Platelet Count 353 150 - 450 Thou/uL 11/23/2024 7:[address] [facility] Hemoglobin 8.7(L) 13.0 - 17.7 g/dL 11/23/2024 7:[address] [facility] Hematocrit 28.3(L) 39.0 - 54.0 % 11/23/2024 7:[address] [facility] Red Blood Cell Count 3.14(L) 4.50 - 6.20 Mil/uL 11/23/2024 7:[address] [facility] MCV 90 80 - 100 fL 11/23/2024 7:[address] [facility] MCH 27.7 27.0 - 31.0 pg 11/23/2024 7:[address] [facility] MCHC 30.7 30.0 - 36.0 g/dL 11/23/2024 7:[address] [facility] RDW 18.0(H) 11.5 - 14.5 % 11/23/2024 7:[address] [facility] MPV 10.4 7.5 - 12.5 fL 11/23/2024 7:[address] [facility] Blood Blood specimen / Unknown 11/23/2024 6:43 AM EST 11/23/2024 6:49 AM EST Gianluca Calles MD [place] [address], [place] [address] * Magnesium (AM) (11/23/2024 6:43 AM EST) Magnesium 2.2 1.6 - 2.7 mg/dL 11/23/2024 7:[address] [facility] Blood Blood specimen / Unknown 11/23/2024 6:43 AM EST 11/23/2024 6:49 AM EST Gianluca Calles MD [place] [address], [place] [address] * (ABNORMAL) Basic Metabolic Panel (AM) (11/23/2024 6:43 AM EST) Glucose 114(H) 65 - 99 mg/dL 11/23/2024 7:[address] [facility] Comment:Fasting: <100 mg/dL, Non-Fasting: <200 mg/dL (ADA 2004) Blood Urea Nitrogen (BUN) 31(H) 8 - 21 mg/dL 11/23/2024 7:[address] [facility] Creatinine 1.5(H) 0.5 - 1.3 mg/dL 11/23/2024 7:[address] [facility] eGFR 52(L) >59 11/23/2024 7:[address] [facility] Comment:CKD-EPI (2020) in mL /min/1.73 sq meters. Sodium 140 136 - 145 mmol/L 11/23/2024 7:[address] [facility] Potassium 4.0 3.4 - 5.3 mmol/L 11/23/2024 7:[address] [facility] Chloride 104 98 - 107 mmol/L 11/23/2024 7:[address] [facility] CO2 25 22 - 33 mmol/L 11/23/2024 7:[address] [facility] Anion Gap 11 7 - 17 11/23/2024 7:[address] [facility] Calcium 9.0 8.7 - 10.5 mg/dL 11/23/2024 7:22 AM EST [facility] BUN/Creatinine Ratio 21 10.0 - 25.0 Ratio 11/23/2024 7:22 AM EST [facility] Blood Blood specimen / Unknown 11/23/2024 6:43 AM EST 11/23/2024 6:49 AM EST Gianluca Calles MD [place] [address], [address] [address] * (ABNORMAL) POCT Glucose, Fingerstick (11/22/2024 9:02 [...] Session [id number] [id number] PACEART Implantable Pulse Generator Zipper Measurer Medtronic PACEART Implantable Pulse Generator Model [id number] Micra AV2 PACEART Implantable Pulse Generator Serial Number [id number] PACEART Implantable Pulse Generator Type Pacemaker PACEART Implantable Pulse Generator Implant Date ,,218,19 0,000 PACEART Otf Setting Mode (NBG Code) [...] last reset 99.86 % PACEART Otf Statistic PEELER OPERATOR Percent 100.00 % PACEART Otf Statistic VS Percent 0 % PACEART Anatomical Region Laterality Modality Other 11/22/2024 1:58 PM EST Narrative 11/28/2024 10:40 AM EST Micra AV leadless Pacemaker evaluation completed on B10E. Per patient request and verbal order from SHUBHAM Pitts: LRL increased from 50 bpm to 60 bpm. Presenting rhythm: AM/PEELER OPERATOR @ 62 bpm. Underlying rhythm: CHB. AM/PEELER OPERATOR pacing 81%, with total V-pacing 100%. Battery [...] MD POINT [facility] CARE [facility] See Below * (ABNORMAL) POCT Glucose, Fingerstick (11/22/2024 7:35 AM EST) [facility] POC Glucose 194(H) 65 - 99 mg/dL 11/22/2024 7:37 AM EST Blood specimen / Unknown 11/22/2024 7:35 AM EST 11/22/2024 7:37 AM EST Dallas Camejo MD [facility]INT [facility] C[facility] See Below * Magnesium (AM) (11/22/2024 7:31 AM EST) [facility] Magnesium 2.0 1.6 - 2.7 mg/dL 11/22/2024 8:[address] [facility] Blood (Plasma/Serum) 11/22/2024 7:31 AM EST 11/22/2024 7:54 AM EST Gianluca Calles MD LAB BLOOD ORDERABLES Performing Organization Address [facility] [place] [address], [place] [address] * (ABNORMAL) Complete Blood Count WITHOUT Differential - in AM (11/22/2024 7:31 AM EST) [facility] White Blood Cell Count 12.1(H) 4.0 - 11.0 Thou/uL 11/22/2024 8:[address] [facility] Platelet Count 333 150 - 450 Thou/uL 11/22/2024 8:[address] [facility] Hemoglobin 8.1(L) 13.0 - 17.7 g/dL 11/22/2024 8:[address] [facility] Hematocrit 26.2(L) 39.0 - 54.0 % 11/22/2024 8:[address] [facility] Red Blood Cell Count 2.88(L) 4.50 - 6.20 Mil/uL 11/22/2024 8:[address] [facility] MCV 91 80 - 100 fL 11/22/2024 8:[address] [facility] MCH 28.1 27.0 - 31.0 pg 11/22/2024 8:[address] [facility] MCHC 30.9 30.0 - 36.0 g/dL 11/22/2024 8:[address] [facility] RDW 18.0(H) 11.5 - 14.5 % 11/22/2024 8:[address] [facility] MPV 10.5 7.5 - 12.5 fL 11/22/2024 8:[address] [facility] Blood Blood specimen / Unknown 11/22/2024 7:31 AM EST 11/22/2024 7:54 AM EST Gianluca Calles MD LAB BLOOD ORDERABLES Performing Organization Address City/State/[facility] [place] [address], [place] [address] * (ABNORMAL) Basic Metabolic Panel (AM) (11/22/2024 7:31 AM EST) Glucose 178(H) 65 - 99 mg/dL 11/22/2024 8:[address] [facility] Comment:Fasting: <100 mg/dL, Non-Fasting: <200 mg/dL (ADA 2004) Blood Urea Nitrogen (BUN) 36(H) 8 - 21 mg/dL 11/22/2024 8:[address] [facility] Creatinine 1.6(H) 0.5 - 1.3 mg/dL 11/22/2024 8:[address] [facility] eGFR 48(L) >59 11/22/2024 8:[address] [facility] Comment:CKD-EPI (2020) in mL /min/1.73 sq meters. Sodium 137 136 - 145 mmol/L 11/22/2024 8:[address] [facility] Potassium 4.2 3.4 - 5.3 mmol/L 11/22/2024 8:[address] [facility] Chloride 101 98 - 107 mmol/L 11/22/2024 8:[address] [facility] CO2 27 22 - 33 mmol/L 11/22/2024 8:17 AM EST [facility] Anion Gap 9 7 - 17 11/22/2024 8:17 AM EST [facility] Calcium 8.8 8.7 - 10.5 mg/dL 11/22/2024 8:17 AM EST [facility] BUN/Creatinine Ratio 23 10.0 - 25.0 Ratio 11/22/2024 8:17 AM EST [facility] Blood (Plasma/Serum) 11/22/2024 7:31 AM EST 11/22/2024 7:54 AM EST Gianluca Calles MD [place] [address], [place] [address] * (ABNORMAL) POCT Glucose, Fingerstick (11/21/2024 9:28 [...] CARE TEST O RDERABLES Performing Organization Address [facility] Co de Phone Number [facility] See Below * (ABNORMAL) POCT Glucose, Fingerstick (11/21/2024 7:45 AM EST) [facility] POC Glucose 175(H) 65 - 99 mg/dL 11/21/2024 7:54 AM EST Blood specimen / Unknown 11/21/2024 7:45 AM EST 11/21/2024 7:54 AM EST Dallas Camejo MD POINT OF CARE TEST O RDERALUCILLE Performing Organization Address [facility] Co de Phone Number [facility] See Below * Magnesium (AM) (11/21/2024 6:58 AM EST) [facility] Magnesium 2.1 1.6 - 2.7 mg/dL 11/21/2024 8:[address] [facility] Blood (Plasma/Serum) 11/21/2024 6:58 AM EST 11/21/2024 7:36 AM EST Gianluca Calles MD LAB BLOOD ORDERABLES Performing Organization Address [facility] [place] [address], [address] [id number] * (ABNORMAL) Complete Blood Count WITHOUT Differential - in AM (11/21/2024 6:58 AM EST) [facility] White Blood Cell Count 14.0(H) 4.0 - 11.0 Thou/uL 11/21/2024 7:55 AM EST [facility] Platelet Count 329 150 - 450 Thou/uL 11/21/2024 7:55 AM EST [facility] Hemoglobin 8.2(L) 13.0 - 17.7 g/dL 11/21/2024 7:[address] [facility] Hematocrit 26.7(L) 39.0 - 54.0 % 11/21/2024 7:[address] [facility] Red Blood Cell Count 2.95(L) 4.50 - 6.20 Mil/uL 11/21/2024 7:[address] [facility] MCV 91 80 - 100 fL 11/21/2024 7:[address] [facility] MCH 27.8 27.0 - 31.0 pg 11/21/2024 7:[address] [facility] MCHC 30.7 30.0 - 36.0 g/dL 11/21/2024 7:[address] [facility] RDW 17.8(H) 11.5 - 14.5 % 11/21/2024 7:[address] [facility] MPV 10.4 7.5 - 12.5 fL 11/21/2024 7:[address] [facility] Blood Blood specimen / Unknown 11/21/2024 6:58 AM EST 11/21/2024 7:36 AM EST Gianluca Calles MD [place] [address], [place] [address] * (ABNORMAL) Basic Metabolic Panel (AM) (11/21/2024 6:58 AM EST) Glucose 153(H) 65 - 99 mg/dL 11/21/2024 8:[address] [facility] Comment:Fasting: <100 mg/dL, Non-Fasting: <200 mg/dL (ADA 2005) Blood Urea Nitrogen (BUN) 38(H) 8 - 21 mg/dL 11/21/2024 8:[address] [facility] Creatinine 1.8(H) 0.5 - 1.3 mg/dL 11/21/2024 8:[address] [facility] eGFR 42(L) >59 11/21/2024 8:[address] [facility] Comment:CKD-EPI (2020) in mL /min/1.73 sq meters. Sodium 136 136 - 145 mmol/L 11/21/2024 8:[address] [facility] Potassium 3.7 3.4 - 5.3 mmol/L 11/21/2024 8:[address] [facility] Chloride 99 98 - 107 mmol/L 11/21/2024 8:[address] [facility] CO2 27 22 - 33 mmol/L 11/21/2024 8:[address] [facility] Anion Gap 10 7 - 17 11/21/2024 8:[address] [facility] Calcium 8.8 8.7 - 10.5 mg/dL 11/21/2024 8:[address] [facility] BUN/Creatinine Ratio 21 10.0 - 25.0 Ratio 11/21/2024 8:[address] [facility] Blood (Plasma/Serum) 11/21/2024 6:58 AM EST 11/21/2024 7:36 AM EST Gianluca Calles MD [place] [address], [place] [address] * (ABNORMAL) POCT Glucose, Fingerstick (11/20/2024 8:16 PM EST) POC Glucose 288(H) 65 - 99 mg/dL 11/20/2024 8:17 PM EST Blood specimen / Unknown 11/20/2024 8:16 PM EST 11/20/2024 8:17 PM EST Dallas Cmaejo MD POINT OF CARE TEST O RDERABLES HOSPITAL LAB See Below * (ABNORMAL) POCT Glucose, Fingerstick (11/20/2024 4:32 PM EST) POC Glucose 212(H) 65 - 99 mg/dL 11/20/2024 5:09 PM EST Blood specimen / Unknown 11/20/2024 4:32 PM EST 11/20/2024 5:09 PM EST Dallas Camejo MD POINT OF CARE TEST O RDERABLES Performing Organization Address [facility] Co nm Phone Number [facility] See Below * (ABNORMAL) POCT Glucose, Fingerstick (11/20/2024 12:07 PM EST) POC Glucose 167(H) 65 - 99 mg/dL 11/20/2024 12:12 PM EST Blood specimen / Unknown 11/20/2024 12:07 PM EST 11/20/2024 12:12 PM EST Dallas Camejo MD POINT OF CARE TEST O RDERABLES Performing Organization Address [facility] Phone Number [facility] See Below * (ABNORMAL) POCT Glucose, Fingerstick (11/20/2024 7:58 AM EST) POC Glucose 166(H) 65 - 99 mg/dL 11/20/2024 8:02 AM EST Blood specimen / Unknown 11/20/2024 7:58 AM EST 11/20/2024 8:02 AM EST Dallas Camejo MD POINT OF CARE TEST O RDERABLES Performing Organization Address [facility] Co nm Phone Number [facility] See Below * Magnesium (AM) (11/20/2024 6:59 AM EST) Magnesium 2.2 1.6 - 2.7 mg/dL 11/20/2024 8:04 AM EST [facility] Blood (Plasma/Serum) 11/20/2024 6:59 AM EST 11/20/2024 7:31 AM EST Gianluca Calles MD LAB BLOOD ORDERABLES Performing Organization Address [facility] Co de Phone Number [address] [address], [address] [address] * (ABNORMAL) Complete Blood Count WITHOUT Differential - in AM (11/20/2024 6:59 AM EST) [facility] White Blood Cell Count 11.9(H) 4.0 - 11.0 Thou/uL 11/20/2024 7:[address] [facility] Platelet Count 339 150 - 450 Thou/uL 11/20/2024 7:[address] [facility] Hemoglobin 8.3(L) 13.0 - 17.7 g/dL 11/20/2024 7:[address] [facility] Hematocrit 27.2(L) 39.0 - 54.0 % 11/20/2024 7:[address] [facility] Red Blood Cell Count 3.01(L) 4.50 - 6.20 Mil/uL 11/20/2024 7:[address] [facility] MCV 90 80 - 100 fL 11/20/2024 7:[address] [facility] MCH 27.6 27.0 - 31.0 pg 11/20/2024 7:[address] [facility] MCHC 30.5 30.0 - 36.0 g/dL 11/20/2024 7:[address] [facility] RDW 17.5(H) 11.5 - 14.5 % 11/20/2024 7:[address] [facility] MPV 10.7 7.5 - 12.5 fL 11/20/2024 7:[address] [facility] Blood Blood specimen / Unknown 11/20/2024 6:59 AM EST 11/20/2024 7:31 AM EST Gianluca Calles MD LAB BLOOD ORDERABLES Performing Organization Address City/State/[facility] [place] [address], [place] [address] * (ABNORMAL) Basic Metabolic Panel (AM) (11/20/2024 6:59 AM EST) [facility] Glucose 155(H) 65 - 99 mg/dL 11/20/2024 8:[address] [facility] Comment:Fasting: <100 mg/dL, Non-Fasting: <200 mg/dL (ADA 2005) Blood Urea Nitrogen (BUN) 47(H) 8 - 21 mg/dL 11/20/2024 8:[address] [facility] Creatinine 1.9(H) 0.5 - 1.3 mg/dL 11/20/2024 8:[address] [facility] eGFR 39(L) >59 11/20/2024 8:[address] [facility] Comment:CKD-EPI (2020) in mL /min/1.73 sq meters. Sodium 137 136 - 145 mmol/L 11/20/2024 8:[address] [facility] Potassium 3.8 3.4 - 5.3 mmol/L 11/20/2024 8:[address] [facility] Chloride 98 98 - 107 mmol/L 11/20/2024 8:[address] [facility] CO2 30 22 - 33 mmol/L 11/20/2024 8:[address] [facility] Anion Gap 9 7 - 17 11/20/2024 8:[address] [facility] Calcium 9.0 8.7 - 10.5 mg/dL 11/20/2024 8:[address] [facility] BUN/Creatinine Ratio 25 10.0 - 25.0 Ratio 11/20/2024 8:[address] [facility] Blood (Plasma/Serum) 11/20/2024 6:59 AM EST 11/20/2024 7:31 AM EST Gianluca Calles MD LAB BLOOD ORDERABLES Performing Organization Address City/[facility]/[place] [address], [address] [address] * (ABNORMAL) POCT Glucose, Fingerstick (11/19/2024 4:13 PM EST) POC Glucose 274(H) 65 - 99 mg/dL 11/19/2024 4:14 PM EST Blood specimen / Unknown 11/19/2024 4:13 PM EST 11/19/2024 4:14 PM EST Dallas Camejo MD POINT OF CARE TEST O RDERABLES HOSPITAL LAB See Below * (ABNORMAL) Urinalysis with Reflex to Microscopic (11/19/2024 4:00 PM EST) Color Yellow 11/19/2024 4:[address] [facility] Clarity Clear 11/19/2024 4:[address] [facility] Specific [place] 1.008 1.003 - 1.030 11/19/2024 4:[address] [facility] pH 6.0 5.0 - 8.0 11/19/2024 4:[address] [facility] Leukocyte Esterase Large(A) Negative 11/19/2024 4:[address] [facility] Nitrite Negative Negative 11/19/2024 4:[address] [facility] Protein Negative Negative 11/19/2024 4:[address] [facility] Glucose 0 0 - 99 mg/dL 11/19/2024 4:[address] [facility] Ketones Negative Negative 11/19/2024 4:[address] [facility] Blood Negative Negative 11/19/2024 4:[address] [facility] Bilirubin Negative Negative 11/19/2024 4:[address] [facility] WBC >25(H) 0 - 4 per hpf 11/19/2024 4:[address] [facility] RBC 2 0 - 4 per hpf 11/19/2024 4:[address] [facility] X-Specimen 16 Voided urine specimen / Unknown 11/19/2024 4:00 PM EST 11/19/2024 4:18 PM EST Anmol Reynoso MD URINE ORDERABLES Performing Organization Address City/State/[facility] [place] [address], [place] [address] * OSMOLALITY, URINE (11/19/2024 4:00 PM EST) Osmolality, Urine 201 50 - 1,200 mOsm/Kg 11/19/2024 6:[address] [facility] Urine Urine specimen / Unknown 11/19/2024 4:00 PM EST 11/19/2024 4:19 PM EST Anmol Reynoso MD URINE ORDERABLES Performing Organization Address [facility] Co de Phone Number [address] [address], [address] [address] * Urea Nitrogen, Urine, Random (11/19/2024 4:00 PM EST) Urea Nitrogen, Random Urine 273 mg/dL 11/19/2024 5:43 PM EST [facility] Comment:Reference range not established for random specimen. Urine Urine specimen / Unknown 11/19/2024 4:00 PM EST 11/19/2024 4:19 PM EST Anmol Reynoso MD URINE ORDERABLES Performing Organization Address [facility] Co de Phone Number [address] [address], [address] [address] * SODIUM, URINE, RANDOM (11/19/2024 4:00 PM EST) Sodium, Urine Random 21 mmol/L 11/19/2024 5:43 PM EST [facility] Comment:Reference range not established for random specimen. Urine Urine specimen / Unknown 11/19/2024 4:00 PM EST 11/19/2024 4:19 PM EST Anmol Reynoso MD URINE ORDERABLES Performing Organization Address City/[facility] Co de Phone Number [address] [address], [address] [address] * CREATININE, URINE, RANDOM (11/19/2024 4:00 PM EST) Creatinine, Urine, Random 31 mg/dL 11/19/2024 5:43 PM EST [facility] Comment:Reference range not established for random specimen. Urine Urine specimen / Unknown 11/19/2024 4:00 PM EST 11/19/2024 4:19 PM EST Anmol Reynoso MD URINE ORDERABLES Performing Organization Address City/[facility] [place] [address], [place] [address] * Chloride, Urine, Random (11/19/2024 4:00 PM EST) Chloride, Urine, Random 23 mmol/L 11/19/2024 5:43 PM EST [facility] Comment:Reference range not established for random specimen. Urine Urine specimen / Unknown 11/19/2024 4:00 PM EST 11/19/2024 4:19 PM EST Anmol Reynoso MD URINE ORDERABLES Performing Organization Address [facility] [place] [address], [place] [address] * CVC INSERT (TUNNEL) W/O PORT GREATER [...] table. A preprocedure time-out was performed per [facility] protocol. The right neck and [...] access, a 26 cm long dual lumen 5-[place] Zealander cuffed tunneled catheter was placed under fluoroscopic [...] the patient's chart. Procedure Note Devon Vogt, - 11/19/2024 PROCEDURE: IR PROLINE INSERTION CLINICAL [...] table. A preprocedure time-out was performed per [facility] protocol. The right neck and [...] access, a 26 cm long dual lumen 5-[place] Ze[place]ander cuffed tunneled catheter was placed under fluoroscopic [...] Glucose, Fingerstick (11/19/2024 11:39 AM EST) Pathologist [facility] POC Glucose 205(H) 65 - 99 mg/dL 11/19/2024 11:40 AM EST Blood specimen / Unknown 11/19/2024 11:39 AM EST 11/19/2024 11:40 AM EST Dallas Camejo MD POINT OF CARE TEST O RDERABLES Performing Organization Address City/[facility]/ZIP Co de Phone Number HOSPITAL LAB See Below * (ABNORMAL) POCT Glucose, Fingerstick (11/19/2024 8:06 AM EST) Pathologist [facility] POC Glucose 190(H) 65 - 99 mg/dL 11/19/2024 8:08 AM EST Blood specimen / Unknown 11/19/2024 8:06 AM EST 11/19/2024 8:08 AM EST Dallas Camejo MD POINT OF CARE TEST O RDERABLES HOSPITAL LAB See Below * (ABNORMAL) Complete Blood Count WITHOUT Differential - Daily x2 (11/19/2024 7:54 AM EST) Pathologist [facility] White Blood Cell Count 10.1 4.0 - 11.0 Thou/uL 11/19/2024 8:48 AM EST [facility] Platelet Count 354 150 - 450 Thou/uL 11/19/2024 8:48 AM EST [facility] Hemoglobin 8.2(L) 13.0 - 17.7 g/dL 11/19/2024 8:[address] [facility] Hematocrit 26.6(L) 39.0 - 54.0 % 11/19/2024 8:[address] [facility] Red Blood Cell Count 2.99(L) 4.50 - 6.20 Mil/uL 11/19/2024 8:[address] [facility] MCV 89 80 - 100 fL 11/19/2024 8:[address] [facility] MCH 27.4 27.0 - 31.0 pg 11/19/2024 8:[address] [facility] MCHC 30.8 30.0 - 36.0 g/dL 11/19/2024 8:[address] [facility] RDW 17.2(H) 11.5 - 14.5 % 11/19/2024 8:[address] [facility] MPV 10.8 7.5 - 12.5 fL 11/19/2024 8:[address] [facility] Blood Blood specimen / Unknown 11/19/2024 7:54 AM EST 11/19/2024 8:33 AM EST Corbin Lamb APRN LAB BLOOD ORDERABL ES Performing Organization Address City/[facility]/[place] [address], [place] [address] * Magnesium (Daily x 2 days) (11/19/2024 7:54 AM EST) Magnesium 2.1 1.6 - 2.7 mg/dL 11/19/2024 9:[address] [facility] Blood (Plasma/Serum) 11/19/2024 7:54 AM EST 11/19/2024 8:33 AM EST Corbin Lamb APRN LAB BLOOD ORDERABL ES Performing Organization Address City/[facility]/[place] [address], [place] [address] * (ABNORMAL) Basic Metabolic Panel (Daily x 2 days) (11/19/2024 7:54 AM EST) Glucose 169(H) 65 - 99 mg/dL 11/19/2024 9:[address] [facility] Comment:Fasting: <100 mg/dL, Non-Fasting: <200 mg/dL (ADA 2004) Blood Urea Nitrogen (BUN) 43(H) 8 - 21 mg/dL 11/19/2024 9:[address] [facility] Creatinine 1.8(H) 0.5 - 1.3 mg/dL 11/19/2024 9:[address] [facility] eGFR 42(L) >59 11/19/2024 9:[address] [facility] Comment:CKD-EPI (2020) in mL /min/1.73 sq meters. Sodium 132(L) 136 - 145 mmol/L 11/19/2024 9:[address] [facility] Potassium 3.7 3.4 - 5.3 mmol/L 11/19/2024 9:[address] [facility] Chloride 92(L) 98 - 107 mmol/L 11/19/2024 9:[address] [facility] CO2 30 22 - 33 mmol/L 11/19/2024 9:[address] [facility] Anion Gap 10 7 - 17 11/19/2024 9:[address] [facility] Calcium 9.1 8.7 - 10.5 mg/dL 11/19/2024 9:[address] [facility] BUN/Creatinine Ratio 24 10.0 - 25.0 Ratio 11/19/2024 9:[address] [facility] Blood (Plasma/Serum) 11/19/2024 7:54 AM EST 11/19/2024 8:33 AM EST Corbin Lamb APRN LAB BLOOD ORDERABL ES [address] [address], [address] [address] * (ABNORMAL) POCT Glucose, Fingerstick (11/18/2024 9:04 PM EST) POC Glucose 253(H) 65 - 99 mg/dL 11/18/2024 9:11 PM EST Blood specimen / Unknown 11/18/2024 9:04 PM EST 11/18/2024 9:11 PM EST Dallas Camejo MD POINT OF CARE TEST O RDERALUCILLE Performing Organization Address [facility] LAB See Below * (ABNORMAL) POCT Glucose, Fingerstick (11/18/2024 4:56 PM EST) POC Glucose 305(H) 65 - 99 mg/dL 11/18/2024 4:58 PM EST Blood specimen / Unknown 11/18/2024 4:56 PM EST 11/18/2024 4:57 PM EST Dallas Camejo MD POINT OF CARE TEST O RDERALUCILLE Performing Organization Address [facility] LAB See Below * (ABNORMAL) POCT Glucose, Fingerstick (11/18/2024 12:00 PM EST) POC Glucose 253(H) 65 - 99 mg/dL 11/18/2024 12:01 PM EST Blood specimen / Unknown 11/18/2024 12:00 PM EST 11/18/2024 12:01 PM EST Dallas Camejo MD POINT OF CARE TEST O RDERALUCILLE Performing Organization Address [facility] LAB See Below * (ABNORMAL) POCT Glucose, Fingerstick (11/18/2024 7:53 AM EST) POC Glucose 129(H) 65 - 99 mg/dL 11/18/2024 7:58 AM EST Blood specimen / Unknown 11/18/2024 7:53 AM EST 11/18/2024 7:58 AM EST Dallas Camejo MD POINT OF CARE TEST O RDERALUCILLE Performing Organization Address [facility]/ZIP Co de Phone Number HOSPITAL LAB See Below * PM SINGLE LEAD EVAL WITH PROGRAM,[id number] (11/18/2024 7:45 AM EST) Date Time Interrogation Session ,,220,07 [phone] PACEART Implantable Pulse Generator Zipper Measurer Medtronic PACEART Implantable Pulse Generator Model [id number] Micra AV2 PACEART Implantable Pulse Generator Serial Number [id number] PACEART Implantable Pulse Generator Type Pacemaker PACEART [...] last reset 92.76 % PACEART Otf Statistic PEELER OPERATOR Percent 99.88 % PACEART Otf Statistic VS Percent 0.12 % PACEART Anatomical Region Laterality Modality Other 11/18/2024 7:35 AM EST Narrative 11/19/2024 12:19 PM EST Pacemaker evaluation completed on B10E, device interrogation ordered for post-OP. Presenting rhythm: AM-PEELER OPERATOR @ 69 bpm. Underlying rhythm: No ventricular response greater than 40 bpm. AM-PEELER OPERATOR @ 84.8%. Battery and device parameters evaluated and within normal limits. Normal pacemaker function. Micra pacemakers do not record events. Sri Pena RN Corbin Lamb APRN CV CARDIAC SERVICE S ORDERABLES * Creatine Kinase (CK) (11/18/2024 7:15 AM EST) Creatine Kinase (CK) 49 24 - 204 U/L 11/18/2024 8:22 AM EST [facility] Blood (Plasma/Serum) 11/18/2024 7:15 AM EST 11/18/2024 7:47 AM EST Corbin Lamb APRN LAB BLOOD ORDERABL ES Performing Organization Address City/[facility]/ZIP Co de Phone Number [address] [address], [address] [address] * (ABNORMAL) Complete Blood Count WITHOUT Differential - Daily x2 (11/18/2024 7:15 AM EST) White Blood Cell Count 12.3(H) 4.0 - 11.0 Thou/uL 11/18/2024 8:[address] [facility] Platelet Count 349 150 - 450 Thou/uL 11/18/2024 8:[address] [facility] Hemoglobin 8.1(L) 13.0 - 17.7 g/dL 11/18/2024 8:[address] [facility] Hematocrit 25.5(L) 39.0 - 54.0 % 11/18/2024 8:[address] [facility] Red Blood Cell Count 2.90(L) 4.50 - 6.20 Mil/uL 11/18/2024 8:[address] [facility] MCV 88 80 - 100 fL 11/18/2024 8:[address] [facility] MCH 27.9 27.0 - 31.0 pg 11/18/2024 8:[address] [facility] MCHC 31.8 30.0 - 36.0 g/dL 11/18/2024 8:[address] [facility] RDW 17.1(H) 11.5 - 14.5 % 11/18/2024 8:[address] [facility] MPV 10.6 7.5 - 12.5 fL 11/18/2024 8:[address] [facility] Blood Blood specimen / Unknown 11/18/2024 7:15 AM EST 11/18/2024 7:47 AM EST Corbin Lamb APRN LAB BLOOD ORDERABL ES [address] [place] [address], [facility] [address] [place] [address] * Magnesium (Daily x 2 days) (11/18/2024 7:15 AM EST) Magnesium 2.0 1.6 - 2.7 mg/dL 11/18/2024 8:[address] [facility] Blood (Plasma/Serum) 11/18/2024 7:15 AM EST 11/18/2024 7:47 AM EST Corbin Adonis WINDOW FRAMER [place] [address], [place] [address] * (ABNORMAL) Basic Metabolic Panel (Daily x 2 days) (11/18/2024 7:15 AM EST) Glucose 114(H) 65 - 99 mg/dL 11/18/2024 8:[address] [facility] Comment:Fasting: <100 mg/dL, Non-Fasting: <200 mg/dL (ADA 2004) Blood Urea Nitrogen (BUN) 45(H) 8 - 21 mg/dL 11/18/2024 8:[address] [facility] Creatinine 1.8(H) 0.5 - 1.3 mg/dL 11/18/2024 8:[address] [facility] eGFR 42(L) >59 11/18/2024 8:[address] [facility] Comment:CKD-EPI (2020) in mL /min/1.73 sq meters. Sodium 129(L) 136 - 145 mmol/L 11/18/2024 8:[address] [facility] Potassium 3.6 3.4 - 5.3 mmol/L 11/18/2024 8:[address] [facility] Chloride 89(L) 98 - 107 mmol/L 11/18/2024 8:[address] [facility] CO2 29 22 - 33 mmol/L 11/18/2024 8:[address] [facility] Anion Gap 11 7 - 17 11/18/2024 8:[address] [facility] Calcium 8.9 8.7 - 10.5 mg/dL 11/18/2024 8:22 AM EST [facility] BUN/Creatinine Ratio 25 10.0 - 25.0 Ratio 11/18/2024 8:22 AM EST [facility] Blood (Plasma/Serum) 11/18/2024 7:15 AM EST 11/18/2024 7:47 AM EST Corbin Lamb APRN LAB BLOOD ORDERABL ES [facility] [address] [place] [address], [facility] [address] [place] [address] * XR Chest 1 view (11/17/2024 5:48 [...] CARE TEST O RDERABLES Performing Organization Address [facility] Co nm Phone Number [facility] See Below * (ABNORMAL) POCT Glucose, Fingerstick (11/17/2024 1:26 PM EST) POC Glucose 140(H) 65 - 99 mg/dL 11/17/2024 1:30 PM EST Blood specimen / Unknown 11/17/2024 1:26 PM EST 11/17/2024 1:30 PM EST Dallas Camejo MD POINT OF CARE TEST O RDERABLES Performing Organization Address [facility] Phone Number [facility] See Below * (ABNORMAL) POCT Glucose, Fingerstick (11/17/2024 11:18 AM EST) POC Glucose 153(H) 65 - 99 mg/dL 11/17/2024 11:22 AM EST Blood specimen / Unknown 11/17/2024 11:18 AM EST 11/17/2024 11:22 AM EST Dallas Caemjo MD POINT OF CARE TEST O RDERABLES Performing Organization Address [facility] de Phone Number [facility] See Below * Phosphorus (AM) (11/17/2024 8:16 AM EST) Phosphorus 3.5 2.7 - 4.5 mg/dL 11/17/2024 9:01 AM EST [facility] Blood (Plasma/Serum) 11/17/2024 8:16 AM EST 11/17/2024 8:30 AM EST Maddison Villalpando MD LAB BLOOD ORDERABLES Performing Organization Address [facility] Co de Phone Number [address] [address], [address] [address] * Magnesium (AM) (11/17/2024 8:16 AM EST) [facility] Magnesium 2.0 1.6 - 2.7 mg/dL 11/17/2024 9:01 AM EST [facility] Blood (Plasma/Serum) 11/17/2024 8:16 AM EST 11/17/2024 8:30 AM EST Maddison Villalpando MD LAB BLOOD ORDERABLES Performing Organization Address City/[facility]/ZIP Co de Phone Number [address] [address], [address] [address] * (ABNORMAL) POCT Glucose, Fingerstick (11/17/2024 7:20 AM EST) [facility] POC Glucose 206(H) 65 - 99 mg/dL 11/17/2024 7:31 AM EST Blood specimen / Unknown 11/17/2024 7:20 AM EST 11/17/2024 7:30 AM EST Dallas Camejo MD POINT OF CARE TEST O RDERABLES HOSPITAL LAB See Below * (ABNORMAL) Complete Blood Count WITHOUT Differential - STAT (11/17/2024 5:00 AM EST) [facility] White Blood Cell Count 11.2(H) 4.0 - 11.0 Thou/uL 11/17/2024 5:[address] [facility] Platelet Count 373 150 - 450 Thou/uL 11/17/2024 5:[address] [facility] Hemoglobin 8.2(L) 13.0 - 17.7 g/dL 11/17/2024 5:[address] [facility] Hematocrit 25.0(L) 39.0 - 54.0 % 11/17/2024 5:[address] [facility] Red Blood Cell Count 2.94(L) 4.50 - 6.20 Mil/uL 11/17/2024 5:[address] [facility] MCV 85 80 - 100 fL 11/17/2024 5:[address] [facility] MCH 27.9 27.0 - 31.0 pg 11/17/2024 5:[address] [facility] MCHC 32.8 30.0 - 36.0 g/dL 11/17/2024 5:[address] [facility] RDW 16.5(H) 11.5 - 14.5 % 11/17/2024 5:[address] [facility] MPV 10.4 7.5 - 12.5 fL 11/17/2024 5:[address] [facility] Blood Blood specimen / Unknown 11/17/2024 5:00 AM EST 11/17/2024 5:09 AM EST Adithya Sheriff PA-C [place] [address], [place] [address] * (ABNORMAL) Comprehensive Metabolic Panel (AM) (11/17/2024 5:00 AM EST) Glucose 171(H) 65 - 99 mg/dL 11/17/2024 6:[address] [facility] Comment:Fasting: <100 mg/dL, Non-Fasting: <200 mg/dL (ADA 2005) Blood Urea Nitrogen (BUN) 54(H) 8 - 21 mg/dL 11/17/2024 6:[address] [facility] Creatinine 1.8(H) 0.5 - 1.3 mg/dL 11/17/2024 6:[address] [facility] eGFR 42(L) >59 11/17/2024 6:[address] [facility] Comment:CKD-EPI (2020) in mL /min/1.73 sq meters. Sodium 128(L) 136 - 145 mmol/L 11/17/2024 6:[address] [facility] Potassium 3.7 3.4 - 5.3 mmol/L 11/17/2024 6:[address] [facility] Chloride 87(L) 98 - 107 mmol/L 11/17/2024 6:[address] [facility] CO2 30 22 - 33 mmol/L 11/17/2024 6:[address] [facility] Calcium 9.4 8.7 - 10.5 mg/dL 11/17/2024 6:[address] [facility] Alkaline Phosphatase 117 45 - 128 U/L 11/17/2024 6:[address] [facility] Aspartate Aminotrans (AST) 24 10 - 55 U/L 11/17/2024 6:[address] [facility] Alanine Aminotrans (ALT) 19 10 - 55 U/L 11/17/2024 6:[address] [facility] Bilirubin, Total 0.2 0.2 - 1.0 mg/dL 11/17/2024 6:[address] [facility] Protein, Total 6.6 6.3 - 8.3 g/dL 11/17/2024 6:[address] [facility] Albumin 2.9(L) 3.4 - 4.8 g/dL 11/17/2024 6:[address] [facility] BUN/Creatinine Ratio 30(H) 10.0 - 25.0 Ratio 11/17/2024 6:[address] [facility] Globulin 3.7 1.5 - 3.9 g/dL 11/17/2024 6:[address] [facility] Albumin/Globulin Ratio 0.8(L) 1.0 - 3.0 Ratio 11/17/2024 6:[address] [facility] Anion Gap 11 7 - 17 11/17/2024 6:[address] [facility] Blood (Plasma/Serum) 11/17/2024 5:00 AM EST 11/17/2024 5:09 AM EST Adithya Sheriff PA-C LAB BLOOD ORDERAB LES [address] [address], [address] [address] * (ABNORMAL) POCT Glucose, Fingerstick (11/16/2024 8:09 PM EST) POC Glucose 296(H) 65 - 99 mg/dL 11/16/2024 8:12 PM EST Blood specimen / Unknown 11/16/2024 8:09 PM EST 11/16/2024 8:11 PM EST Dallas Camejo MD POINT OF CARE TEST O RDGHANSHYAM Performing Organization Address [facility] LAB See Below * (ABNORMAL) POCT Glucose, Fingerstick (11/16/2024 4:19 PM EST) POC Glucose 236(H) 65 - 99 mg/dL 11/16/2024 4:24 PM EST Blood specimen / Unknown 11/16/2024 4:19 PM EST 11/16/2024 4:24 PM EST Dallas Camejo MD POINT OF CARE TEST O JOSEPH Performing Organization Address [facility] LAB See Below * (ABNORMAL) POCT Glucose, Fingerstick (11/16/2024 12:04 PM EST) POC Glucose 246(H) 65 - 99 mg/dL 11/16/2024 12:16 PM EST Blood specimen / Unknown 11/16/2024 12:04 PM EST 11/16/2024 12:16 PM EST Dallas Camejo MD POINT OF CARE TEST O JOSEPH Performing Organization Address [facility] LAB See Below * (ABNORMAL) POCT Glucose, Fingerstick (11/16/2024 7:37 AM EST) POC Glucose 211(H) 65 - 99 mg/dL 11/16/2024 7:52 AM EST Blood specimen / Unknown 11/16/2024 7:37 AM EST 11/16/2024 7:52 AM EST Dallas Camejo MD POINT OF CARE TEST O RDGHANSHYAM Performing Organization Address [facility] Number [facility] LAB See Below * Phosphorus (AM) (11/16/2024 7:23 AM EST) Phosphorus 3.8 2.7 - 4.5 mg/dL 11/16/2024 8:[address] [facility] Blood (Plasma/Serum) 11/16/2024 7:23 AM EST 11/16/2024 7:51 AM EST Maddison Villalpando MD LAB BLOOD ORDERABLES Performing Organization Address [facility] [place] [address], [place] [address] * Magnesium (AM) (11/16/2024 7:23 AM EST) Magnesium 2.1 1.6 - 2.7 mg/dL 11/16/2024 8:[address] [facility] Blood (Plasma/Serum) 11/16/2024 7:23 AM EST 11/16/2024 7:51 AM EST Maddison Villalpando MD LAB BLOOD ORDERABLES Performing Organization Address City/[facility] [place] [address], [place] [address] * (ABNORMAL) Basic Metabolic Panel (AM) (11/16/2024 7:23 AM EST) Glucose 190(H) 65 - 99 mg/dL 11/16/2024 8:[address] [facility] Comment:Fasting: <100 mg/dL, Non-Fasting: <200 mg/dL (ADA 2005) Blood Urea Nitrogen (BUN) 55(H) 8 - 21 mg/dL 11/16/2024 8:[address] [facility] Creatinine 1.9(H) 0.5 - 1.3 mg/dL 11/16/2024 8:[address] [facility] eGFR 39(L) >59 11/16/2024 8:[address] [facility] Comment:CKD-EPI (2020) in mL /min/1.73 sq meters. Sodium 130(L) 136 - 145 mmol/L 11/16/2024 8:[address] [facility] Potassium 3.6 3.4 - 5.3 mmol/L 11/16/2024 8:[address] [facility] Chloride 87(L) 98 - 107 mmol/L 11/16/2024 8:[address] [facility] CO2 32 22 - 33 mmol/L 11/16/2024 8:[address] [facility] Anion Gap 11 7 - 17 11/16/2024 8:[address] [facility] Calcium 9.1 8.7 - 10.5 mg/dL 11/16/2024 8:[address] [facility] BUN/Creatinine Ratio 29(H) 10.0 - 25.0 Ratio 11/16/2024 8:[address] [facility] Blood (Plasma/Serum) 11/16/2024 7:23 AM EST 11/16/2024 7:51 AM EST Maddison Villalpando MD LAB BLOOD ORDERABLES Performing Organization Address City/State/[facility] Co de Phone Number [address] [address], [address] [address] * (ABNORMAL) Complete Blood Count WITHOUT Differential - in AM (11/16/2024 7:23 AM EST) White Blood Cell Count 10.7 4.0 - 11.0 Thou/uL 11/16/2024 8:[address] [facility] Platelet Count 408 150 - 450 Thou/uL 11/16/2024 8:[address] [facility] Hemoglobin 8.1(L) 13.0 - 17.7 g/dL 11/16/2024 8:[address] [facility] Hematocrit 25.6(L) 39.0 - 54.0 % 11/16/2024 8:[address] [facility] Red Blood Cell Count 2.97(L) 4.50 - 6.20 Mil/uL 11/16/2024 8:[address] [facility] MCV 86 80 - 100 fL 11/16/2024 8:[address] [facility] MCH 27.3 27.0 - 31.0 pg 11/16/2024 8:[address] [facility] MCHC 31.6 30.0 - 36.0 g/dL 11/16/2024 8:[address] [facility] RDW 16.8(H) 11.5 - 14.5 % 11/16/2024 8:[address] [facility] MPV 10.4 7.5 - 12.5 fL 11/16/2024 8:[address] [facility] Blood Blood specimen / Unknown 11/16/2024 7:23 AM EST 11/16/2024 7:51 AM EST Maddison Villalpando MD LAB BLOOD ORDERABLES [address] [address], [address] [address] * Type and Screen (11/16/2024 7:23 AM EST) ABO/Rh A POSITIVE 11/16/2024 8:[address] [facility] Antibody Screen NEGATIVE 11/16/2024 8:[address] [facility] Specimen Expiration 11/19/2024 11/16/2024 8:[address] [facility] Unit Number [id number] 11/16/2024 9:[address] [facility] Blood Component Type LEUKOREDUCED RED CELLS 11/16/2024 9:[address] [facility] Unit Division 00 11/16/2024 9:[address] [facility] Unit Status REL FROM ALLOC 2:[address] [facility] Transfusion Status OK TO TRANSFUSE 11/16/2024 9:[address] [facility] Crossmatch Result Electronically Compatible 11/16/2024 9:[address] [facility] Unit Number [id number] 11/16/2024 9:[address] [facility] Blood Component Type LEUKOREDUCED RED CELLS 11/16/2024 9:[address] [facility] Unit Division 00 11/16/2024 9:[address] [facility] Unit Status REL FROM ALLOC 2:[address] [facility] Transfusion Status OK TO TRANSFUSE 11/16/2024 9:[address] [facility] Crossmatch Result Electronically Compatible 11/16/2024 9:[address] [facility] Unit Number [id number] 11/16/2024 9:[address] [facility] Blood Component Type LEUKOREDUCED RED CELLS 11/16/2024 9:[address] [facility] Unit Division 00 11/16/2024 9:[address] [facility] Unit Status REL FROM ALLOC 2:[address] [facility] Transfusion Status OK TO TRANSFUSE 11/16/2024 9:[address] [facility] Crossmatch Result Electronically Compatible 11/16/2024 9:[address] [facility] Unit Number [id number] 11/16/2024 9:[address] [facility] Blood Component Type LEUKOREDUCED RED CELLS 11/16/2024 9:[address] [facility] Unit Division 00 11/16/2024 9:[address] [facility] Unit Status REL FROM ALLOC 2:[address] [facility] Transfusion Status OK TO TRANSFUSE 11/16/2024 9:[address] [facility] Crossmatch Result Electronically Compatible 11/16/2024 9:[address] [facility] Blood Blood specimen / Unknown 11/16/2024 7:23 AM EST 11/16/2024 7:57 AM EST Comment:Blood Cristina Rodriguez APRN BLOOD BANK TEST OR DERABLES [facility]OSPITAL LAB See Below [address] [address] * (ABNORMAL) POCT Glucose, Fingerstick (11/15/2024 8:14 PM EST) POC Glucose 330(H) 65 - 99 mg/dL 11/15/2024 8:15 PM EST Blood specimen / Unknown 11/15/2024 8:14 PM EST 11/15/2024 8:15 PM EST Dallas Camejo MD POINT OF CARE TEST O [facility]ABLES [facility] LAB See Below * (ABNORMAL) POCT Glucose, Fingerstick (11/15/2024 4:10 PM EST) Pathologist [facility] POC Glucose 308(H) 65 - 99 mg/dL 11/15/2024 4:11 PM EST Blood specimen / Unknown 11/15/2024 4:10 PM EST 11/15/2024 4:11 PM EST Dallas Camejo MD POINT OF CARE TEST O RDERABLES Performing Organization Address [facility] Phone Number [facility] LAB See Below * (ABNORMAL) POCT Glucose, Fingerstick (11/15/2024 11:09 AM EST) POC Glucose 305(H) 65 - 99 mg/dL 11/15/2024 11:24 AM EST Blood specimen / Unknown 11/15/2024 11:09 AM EST 11/15/2024 11:24 AM EST Dallas Camejo MD POINT OF CARE TEST O RDERABLES Performing Organization Address [facility] Phone Number [facility] LAB See Below * Prepare RBC's:Prepare in: Units; Number of Units: 4; Transfusion Indications: Hemoglobin less than 7 gm/dl or HCT less than 21% (11/15/2024 10:54 AM EST) Units Ordered 4 11/15/2024 11:04 AM EST Serum specimen / Unknown 11/15/2024 10:54 AM EST 11/16/2024 9:11 AM EST Cristina Rodriguez APRN BLOOD BANK PRODUCT ORDERABLES Performing Organization Address [facility] Co de Phone Number [facility] LAB See Below * Phosphorus (AM) (11/15/2024 8:08 AM EST) Phosphorus 4.3 2.7 - 4.5 mg/dL 11/15/2024 9:21 AM EST [facility] Blood (Plasma/Serum) 11/15/2024 8:08 AM EST 11/15/2024 8:57 AM EST Maddison Villalpando MD [place] [address], [place] [address] * Magnesium (AM) (11/15/2024 8:08 AM EST) Magnesium 2.1 1.6 - 2.7 mg/dL 11/15/2024 9:[address] [facility] Blood (Plasma/Serum) 11/15/2024 8:08 AM EST 11/15/2024 8:57 AM EST Maddison Villalpando MD LAB BLOOD ORDERABLES Performing Organization Address [facility] [place] [address], [place] [address] * (ABNORMAL) Basic Metabolic Panel (AM) (11/15/2024 8:08 AM EST) Glucose 218(H) 65 - 99 mg/dL 11/15/2024 9:[address] [facility] Comment:Fasting: <100 mg/dL, Non-Fasting: <200 mg/dL (ADA 2004) Blood Urea Nitrogen (BUN) 59(H) 8 - 21 mg/dL 11/15/2024 9:[address] [facility] Creatinine 1.8(H) 0.5 - 1.3 mg/dL 11/15/2024 9:[address] [facility] eGFR 42(L) >59 11/15/2024 9:[address] [facility] Comment:CKD-EPI (2020) in mL /min/1.73 sq meters. Sodium 131(L) 136 - 145 mmol/L 11/15/2024 9:[address] [facility] Potassium 3.9 3.4 - 5.3 mmol/L 11/15/2024 9:[address] [facility] Chloride 85(L) 98 - 107 mmol/L 11/15/2024 9:[address] [facility] CO2 34(H) 22 - 33 mmol/L 11/15/2024 9:[address] [facility] Anion Gap 12 7 - 17 11/15/2024 9:[address] [facility] Calcium 9.4 8.7 - 10.5 mg/dL 11/15/2024 9:[address] [facility] BUN/Creatinine Ratio 33(H) 10.0 - 25.0 Ratio 11/15/2024 9:[address] [facility] Blood (Plasma/Serum) 11/15/2024 8:08 AM EST 11/15/2024 8:57 AM EST Maddison Villalpando MD LAB BLOOD ORDERABLES [address] [address], [address] [address] * (ABNORMAL) Complete Blood Count WITHOUT Differential - in AM (11/15/2024 8:08 AM EST) White Blood Cell Count 11.8(H) 4.0 - 11.0 Thou/uL 11/15/2024 9:[address] [facility] Platelet Count 485(H) 150 - 450 Thou/uL 11/15/2024 9:[address] [facility] Hemoglobin 8.9(L) 13.0 - 17.7 g/dL 11/15/2024 9:[address] [facility] Hematocrit 28.9(L) 39.0 - 54.0 % 11/15/2024 9:[address] [facility] Red Blood Cell Count 3.27(L) 4.50 - 6.20 Mil/uL 11/15/2024 9:[address] [facility] MCV 88 80 - 100 fL 11/15/2024 9:[address] [facility] MCH 27.2 27.0 - 31.0 pg 11/15/2024 9:[address] [facility] MCHC 30.8 30.0 - 36.0 g/dL 11/15/2024 9:[address] [facility] RDW 16.8(H) 11.5 - 14.5 % 11/15/2024 9:[address] [facility] MPV 10.4 7.5 - 12.5 fL 11/15/2024 9:[address] [facility] Blood Blood specimen / Unknown 11/15/2024 8:08 AM EST 11/15/2024 8:57 AM EST Maddison Villalpando MD LAB BLOOD ORDERABLES Performing Organization Address [facility] [place] [address], [place] [address] * (ABNORMAL) proBNP, N-terminal (11/15/2024 8:08 AM EST) Pathologist [facility] proBNP, N-terminal 429(H) <125 pg/mL 11/15/2024 9:21 AM EST [facility] Blood Plasma specimen / Unknown 11/15/2024 8:08 AM EST 11/15/2024 8:57 AM EST Valencia Lau APRN LAB BLOOD ORDERAB LES Performing Organization Address [facility] [place] [address], [place] [address] * (ABNORMAL) POCT Glucose, Fingerstick (11/15/2024 7:36 AM EST) [facility] POC Glucose 230(H) 65 - 99 mg/dL 11/15/2024 7:54 AM EST Blood specimen / Unknown 11/15/2024 7:36 AM EST 11/15/2024 7:54 AM EST Dallas Camejo MD POINT OF CARE TEST O RDERABLES Performing Organization Address City/[facility]/ZIP Co de Phone Number HOSPITAL LAB See Below * (ABNORMAL) POCT Glucose, Fingerstick (11/14/2024 7:51 PM EST) Pathologist [facility] POC Glucose 252(H) 65 - 99 mg/dL 11/14/2024 7:54 PM EST Blood specimen / Unknown 11/14/2024 7:51 PM EST 11/14/2024 7:54 PM EST Dallas Camejo MD POINT OF CARE TEST O RDERALUCILLE Performing Organization Address City/[facility]/ZIP Co de Phone Number [facility] See Below * (ABNORMAL) POCT Glucose, Fingerstick (11/14/2024 4:10 PM EST) POC Glucose 237(H) 65 - 99 mg/dL 11/14/2024 4:15 PM EST Blood specimen / Unknown 11/14/2024 4:10 PM EST 11/14/2024 4:15 PM EST Dallas Camejo MD POINT OF CARE TEST O RDERALUCILLE Performing Organization Address [facility] Co de Phone Number [facility] See Below * (ABNORMAL) POCT Glucose, Fingerstick (11/14/2024 11:33 AM EST) POC Glucose 274(H) 65 - 99 mg/dL 11/14/2024 11:49 AM EST Blood specimen / Unknown 11/14/2024 11:33 AM EST 11/14/2024 11:49 AM EST Dallas Camejo MD POINT OF CARE TEST O JOSEPH Performing Organization Address [facility] Co de Phone Number [facility] See Below * (ABNORMAL) Complete Blood Count WITHOUT Differential - STAT (11/14/2024 10:31 AM EST) Pathologist [facility] White Blood Cell Count 10.6 4.0 - 11.0 Thou/uL 11/14/2024 11:[address] [facility] Platelet Count 471(H) 150 - 450 Thou/uL 11/14/2024 11:[address] [facility] Hemoglobin 8.9(L) 13.0 - 17.7 g/dL 11/14/2024 11:[address] [facility] Hematocrit 28.9(L) 39.0 - 54.0 % 11/14/2024 11:[address] [facility] Red Blood Cell Count 3.25(L) 4.50 - 6.20 Mil/uL 11/14/2024 11:[address] [facility] MCV 89 80 - 100 fL 11/14/2024 11:[address] [facility] MCH 27.4 27.0 - 31.0 pg 11/14/2024 11:[address] [facility] MCHC 30.8 30.0 - 36.0 g/dL 11/14/2024 11:[address] [facility] RDW 17.1(H) 11.5 - 14.5 % 11/14/2024 11:[address] [facility] MPV 10.3 7.5 - 12.5 fL 11/14/2024 11:[address] [facility] Blood Blood specimen / Unknown 11/14/2024 10:31 AM EST 11/14/2024 11:15 AM EST Maddison Villalpando MD LAB BLOOD ORDERABLES Performing Organization Address City/[facility]/[place] [address], [place] [address] * (ABNORMAL) Phosphorus (Routine) (11/14/2024 10:31 AM EST) Phosphorus 6.1(H) 2.7 - 4.5 mg/dL 11/14/2024 11:[address] [facility] Blood (Plasma/Serum) 11/14/2024 10:31 AM EST 11/14/2024 11:15 AM EST Maddison Villalpando MD LAB BLOOD ORDERABLES Performing Organization Address City/[facility]/[place] [address], [place] [address] * Magnesium (Routine) (11/14/2024 10:31 AM EST) Magnesium 2.1 1.6 - 2.7 mg/dL 11/14/2024 11:[address] [facility] Blood (Plasma/Serum) 11/14/2024 10:31 AM EST 11/14/2024 11:15 AM EST Maddison Villalpando MD LAB BLOOD ORDERABLES [address] [address], [place] [address] * (ABNORMAL) Basic Metabolic Panel (STAT) (11/14/2024 10:31 AM EST) Glucose 319(H) 65 - 99 mg/dL 11/14/2024 11:[address] [facility] Comment:Fasting: <100 mg/dL, Non-Fasting: <200 mg/dL (ADA 2004) Blood Urea Nitrogen (BUN) 65(H) 8 - 21 mg/dL 11/14/2024 11:[address] [facility] Creatinine 2.1(H) 0.5 - 1.3 mg/dL 11/14/2024 11:[address] [facility] eGFR 35(L) >59 11/14/2024 11:[address] [facility] Comment:CKD-EPI (2020) in mL /min/1.73 sq meters. Sodium 132(L) 136 - 145 mmol/L 11/14/2024 11:[address] [facility] Potassium 4.0 3.4 - 5.3 mmol/L 11/14/2024 11:[address] [facility] Chloride 85(L) 98 - 107 mmol/L 11/14/2024 11:[address] [facility] CO2 34(H) 22 - 33 mmol/L 11/14/2024 11:[address] [facility] Anion Gap 13 7 - 17 11/14/2024 11:[address] [facility] Calcium 9.4 8.7 - 10.5 mg/dL 11/14/2024 11:[address] [facility] BUN/Creatinine Ratio 31(H) 10.0 - 25.0 Ratio 11/14/2024 11:[address] [facility] Blood (Plasma/Serum) 11/14/2024 10:31 AM EST 11/14/2024 11:15 AM EST Maddison Villalpando MD [place] [address], [facility] [address] [place] [address] * (ABNORMAL) POCT Glucose, Fingerstick (11/14/2024 7:45 AM EST) POC Glucose 224(H) 65 - 99 mg/dL 11/14/2024 7:46 AM EST Blood specimen / Unknown 11/14/2024 7:45 AM EST 11/14/2024 7:46 AM EST Dallas Camejo MD POINT OF CARE TEST O RDERALUCILLE Performing Organization Address [facility] Number [facility] See Below * (ABNORMAL) POCT Glucose, Fingerstick (11/13/2024 11:30 PM EST) POC Glucose 268(H) 65 - 99 mg/dL 11/13/2024 11:30 PM EST Blood specimen / Unknown 11/13/2024 11:30 PM EST 11/13/2024 11:31 PM EST Dallas Camejo MD POINT OF CARE TEST O RDERALUCILLE Performing Organization Address [facility] LAB See Below * (ABNORMAL) POCT Glucose, Fingerstick (11/13/2024 9:19 PM EST) POC Glucose 366(H) 65 - 99 mg/dL 11/13/2024 9:20 PM EST Blood specimen / Unknown 11/13/2024 9:19 PM EST 11/13/2024 9:20 PM EST Dallas Camejo MD POINT OF CARE TEST O RDERALUCILLE Performing Organization Address [facility] Number [facility] See Below * (ABNORMAL) POCT Glucose, Fingerstick (11/13/2024 4:45 PM EST) POC Glucose 196(H) 65 - 99 mg/dL 11/13/2024 4:50 PM EST Blood specimen / Unknown 11/13/2024 4:45 PM EST 11/13/2024 4:50 PM EST Dallas Camejo MD POINT OF CARE TEST O RDERABLES Performing Organization Address [facility] Phone Number [facility] See Below * (ABNORMAL) POCT Glucose, Fingerstick (11/13/2024 11:54 AM EST) POC Glucose 232(H) 65 - 99 mg/dL 11/13/2024 11:55 AM EST Blood specimen / Unknown 11/13/2024 11:54 AM EST 11/13/2024 11:55 AM EST Dallas Camejo MD POINT OF CARE TEST O RDERABLES Performing Organization Address [facility] Phone Number [facility] See Below * (ABNORMAL) POCT Glucose, Fingerstick (11/13/2024 8:12 AM EST) POC Glucose 159(H) 65 - 99 mg/dL 11/13/2024 8:15 AM EST Blood specimen / Unknown 11/13/2024 8:12 AM EST 11/13/2024 8:15 AM EST Dallas Camejo MD POINT OF CARE TEST O RDERABLES Performing Organization Address [facility] Number [facility] See Below * (ABNORMAL) proBNP, N-terminal (11/13/2024 7:30 AM EST) proBNP, N-terminal 994(H) <125 pg/mL 11/13/2024 11:05 AM EST [facility] Plasma specimen / Unknown 11/13/2024 7:30 AM EST 11/13/2024 8:09 AM EST Maddison Villalpando MD LAB BLOOD ORDERABLES Performing Organization Address [facility] Phone Number [address] [address], [address] [address] * (ABNORMAL) Phosphorus (AM) (11/13/2024 7:30 AM EST) Pathologist [facility] Phosphorus 4.9(H) 2.7 - 4.5 mg/dL 11/13/2024 8:[address] [facility] Blood (Plasma/Serum) 11/13/2024 7:30 AM EST 11/13/2024 8:09 AM EST Maddison Villalpando MD [place] [address], [place] [address] * Magnesium (AM) (11/13/2024 7:30 AM EST) Pathologist [facility] Magnesium 1.7 1.6 - 2.7 mg/dL 11/13/2024 8:[address] [facility] Blood (Plasma/Serum) 11/13/2024 7:30 AM EST 11/13/2024 8:09 AM EST Maddison Villalpando MD LAB BLOOD ORDERABLES Performing Organization Address City/[facility] [place] [address], [place] [address] * (ABNORMAL) Complete Blood Count WITHOUT Differential - in AM (11/13/2024 7:30 AM EST) [facility] White Blood Cell Count 11.8(H) 4.0 - 11.0 Thou/uL 11/13/2024 8:[address] [facility] Platelet Count 486(H) 150 - 450 Thou/uL 11/13/2024 8:[address] [facility] Hemoglobin 9.2(L) 13.0 - 17.7 g/dL 11/13/2024 8:[address] [facility] Hematocrit 29.8(L) 39.0 - 54.0 % 11/13/2024 8:[address] [facility] Red Blood Cell Count 3.34(L) 4.50 - 6.20 Mil/uL 11/13/2024 8:[address] [facility] MCV 89 80 - 100 fL 11/13/2024 8:[address] [facility] MCH 27.5 27.0 - 31.0 pg 11/13/2024 8:[address] [facility] MCHC 30.9 30.0 - 36.0 g/dL 11/13/2024 8:[address] [facility] RDW 16.9(H) 11.5 - 14.5 % 11/13/2024 8:[address] [facility] MPV 9.8 7.5 - 12.5 fL 11/13/2024 8:[address] [facility] Blood Blood specimen / Unknown 11/13/2024 7:30 AM EST 11/13/2024 8:09 AM EST Maddison Villalpando MD [place] [address], [place] [address] * (ABNORMAL) Basic Metabolic Panel (AM) (11/13/2024 7:30 AM EST) Glucose 154(H) 65 - 99 mg/dL 11/13/2024 8:[address] [facility] Comment:Fasting: <100 mg/dL, Non-Fasting: <200 mg/dL (ADA 2004) Blood Urea Nitrogen (BUN) 44(H) 8 - 21 mg/dL 11/13/2024 8:[address] [facility] Creatinine 1.7(H) 0.5 - 1.3 mg/dL 11/13/2024 8:[address] [facility] eGFR 45(L) >59 11/13/2024 8:[address] [facility] Comment:CKD-EPI (2020) in mL /min/1.73 sq meters. Sodium 140 136 - 145 mmol/L 11/13/2024 8:[address] [facility] Potassium 3.6 3.4 - 5.3 mmol/L 11/13/2024 8:[address] [facility] Chloride 91(L) 98 - 107 mmol/L 11/13/2024 8:45 AM EST [facility] CO2 35(H) 22 - 33 mmol/L 11/13/2024 8:45 AM EST [facility] Anion Gap 14 7 - 17 11/13/2024 8:45 AM EST [facility] Calcium 9.7 8.7 - 10.5 mg/dL 11/13/2024 8:[address] [facility] BUN/Creatinine Ratio 26(H) 10.0 - 25.0 Ratio 11/13/2024 8:45 AM EST [facility] Blood (Plasma/Serum) 11/13/2024 7:30 AM EST 11/13/2024 8:09 AM EST Maddison Villalpando MD [place] [address], [place] [address] * (ABNORMAL) POCT Glucose, Fingerstick (11/13/2024 3:59 [...] CARE TEST O RDGHANSHYAM Performing Organization Address [facility] LAB See Below * (ABNORMAL) POCT Glucose, Fingerstick (11/12/2024 4:41 PM EST) POC Glucose 200(H) 65 - 99 mg/dL 11/12/2024 5:01 PM EST Blood specimen / Unknown 11/12/2024 4:41 PM EST 11/12/2024 5:01 PM EST Dallas Camejo MD POINT OF CARE TEST O JOSEPH Performing Organization Address [facility] LAB See Below * MRI Brain w/o [...] lesions. No septic emboli. Luis Degroot MD IM MRI ORDERABLES * PM DUAL LEAD EVAL WITH PROGRAMMING, [id number] (11/12/2024 1:15 PM EST) Date Time Interrogation Session [id number] [phone] PACEART Implantable Pulse Generator Zipper Measurer [employer] PACEART Implantable Pulse Generator Model [id number] Jaime ESCOBAR PACEART Implantable Pulse Generator Serial Number [id number] PACEART Implantable Pulse Generator Type Pacemaker PACEART [...] reset 99.97 % PACEART Otf Statistic AP PEELER OPERATOR Percent 76.74 % PACEART Otf Statistic PEELER OPERATOR Percent 23.23 % PACEART Otf Statistic AP VS Percent 0.01 % PACEART Otf Statistic VS Percent 0.01 % PACEART AT/AF [place] Percent 0 % PACEART Episode Statistic Recent [...] CARE TEST O RDERABLES Performing Organization Address City/[facility]/ZIP Co de Phone Number [facility] See Below * (ABNORMAL) POCT Glucose, Fingerstick (11/12/2024 8:01 AM EST) POC Glucose 140(H) 65 - 99 mg/dL 11/12/2024 8:18 AM EST Blood specimen / Unknown 11/12/2024 8:01 AM EST 11/12/2024 8:18 AM EST Dallas Camejo MD POINT OF CARE TEST O RDERABLES Performing Organization Address [facility] Phone Number [facility] See Below * Phosphorus (11/12/2024 5:00 AM EST) Phosphorus 4.5 2.7 - 4.5 mg/dL 11/12/2024 6:01 AM EST [facility] Blood (Plasma/Serum) 11/12/2024 5:00 AM EST 11/12/2024 5:22 AM EST Luis Degroot MD LAB BLOOD ORDERABLES Performing Organization Address [facility] [place] [address], [place] [address] * Magnesium (11/12/2024 5:00 AM EST) Magnesium 1.8 1.6 - 2.7 mg/dL 11/12/2024 6:01 AM EST [facility] Blood (Plasma/Serum) 11/12/2024 5:00 AM EST 11/12/2024 5:22 AM EST Luis Degroot MD LAB BLOOD ORDERABLES Performing Organization Address City/[facility] Co de Phone Number [address] [address], [place] [address] * (ABNORMAL) Complete Blood Count, WITHOUT Differential (routine) (11/12/2024 5:00 AM EST) Pathologist [facility] White Blood Cell Count 11.1(H) 4.0 - 11.0 Thou/uL 11/12/2024 5:[address] [facility] Platelet Count 456(H) 150 - 450 Thou/uL 11/12/2024 5:[address] [facility] Hemoglobin 8.1(L) 13.0 - 17.7 g/dL 11/12/2024 5:[address] [facility] Hematocrit 26.3(L) 39.0 - 54.0 % 11/12/2024 5:[address] [facility] Red Blood Cell Count 2.94(L) 4.50 - 6.20 Mil/uL 11/12/2024 5:[address] [facility] MCV 90 80 - 100 fL 11/12/2024 5:[address] [facility] MCH 27.6 27.0 - 31.0 pg 11/12/2024 5:[address] [facility] MCHC 30.8 30.0 - 36.0 g/dL 11/12/2024 5:[address] [facility] RDW 16.9(H) 11.5 - 14.5 % 11/12/2024 5:[address] [facility] MPV 9.8 7.5 - 12.5 fL 11/12/2024 5:[address] [facility] Blood Blood specimen / Unknown 11/12/2024 5:00 AM EST 11/12/2024 5:22 AM EST Luis Degroot MD LAB BLOOD ORDERABLES [address] [address], [place] [address] * (ABNORMAL) Basic Metabolic Panel (11/12/2024 5:00 AM EST) [facility] Glucose 126(H) 65 - 99 mg/dL 11/12/2024 6:[address] [facility] Comment:Fasting: <100 mg/dL, Non-Fasting: <200 mg/dL (ADA 2004) Blood Urea Nitrogen (BUN) 44(H) 8 - 21 mg/dL 11/12/2024 6:[address] [facility] Creatinine 1.6(H) 0.5 - 1.3 mg/dL 11/12/2024 6:[address] [facility] eGFR 48(L) >59 11/12/2024 6:[address] [facility] Comment:CKD-EPI (2020) in mL /min/1.73 sq meters. Sodium 138 136 - 145 mmol/L 11/12/2024 6:[address] [facility] Potassium 3.7 3.4 - 5.3 mmol/L 11/12/2024 6:[address] [facility] Chloride 96(L) 98 - 107 mmol/L 11/12/2024 6:[address] [facility] CO2 30 22 - 33 mmol/L 11/12/2024 6:[address] [facility] Anion Gap 12 7 - 17 11/12/2024 6:[address] [facility] Calcium 9.1 8.7 - 10.5 mg/dL 11/12/2024 6:[address] [facility] BUN/Creatinine Ratio 28(H) 10.0 - 25.0 Ratio 11/12/2024 6:[address] [facility] Blood (Plasma/Serum) 11/12/2024 5:00 AM EST 11/12/2024 5:22 AM EST Luis Degroot MD [place] [address], [address] [address] * (ABNORMAL) POCT Glucose, Fingerstick (11/12/2024 4:51 AM EST) POC Glucose 140(H) 65 - 99 mg/dL 11/12/2024 4:53 AM EST Blood specimen / Unknown 11/12/2024 4:51 AM EST 11/12/2024 4:53 AM EST Dallas Camejo MD POINT OF CARE TEST O RDERALUCILLE Performing Organization Address [facility] LAB See Below * (ABNORMAL) POCT Glucose, Fingerstick (11/12/2024 12:42 AM EST) POC Glucose 147(H) 65 - 99 mg/dL 11/12/2024 12:43 AM EST Blood specimen / Unknown 11/12/2024 12:42 AM EST 11/12/2024 12:43 AM EST Dallas Camejo MD POINT OF CARE TEST O RDERALUCILLE Performing Organization Address [facility] LAB See Below * (ABNORMAL) POCT Glucose, Fingerstick (11/12/2024 12:21 AM EST) POC Glucose 130(H) 65 - 99 mg/dL 11/12/2024 12:22 AM EST Blood specimen / Unknown 11/12/2024 12:21 AM EST 11/12/2024 12:22 AM EST Dallas Camejo MD POINT OF CARE TEST O RDERALUCILLE Performing Organization Address [facility] Number [facility] See Below * (ABNORMAL) POCT Glucose, Fingerstick (11/11/2024 9:17 PM EST) POC Glucose 224(H) 65 - 99 mg/dL 11/11/2024 9:21 PM EST Blood specimen / Unknown 11/11/2024 9:17 PM EST 11/11/2024 9:21 PM EST Dallas Camejo MD POINT OF CARE TEST O RDERALUCILLE Performing Organization Address [facility] Center Number [facility] See Below * (ABNORMAL) POCT Glucose, Fingerstick (11/11/2024 5:06 PM EST) POC Glucose 149(H) 65 - 99 mg/dL 11/11/2024 5:37 PM EST Blood specimen / Unknown 11/11/2024 5:06 PM EST 11/11/2024 5:37 PM EST Dallas Camejo MD POINT OF CARE TEST O RDERABLES HOSPITAL LAB See Below * PM DUAL LEAD EVAL WITH PROGRAMMING, [id number] (11/11/2024 4:33 PM EST) Date Time Interrogation Session [id number] 1,358 PACEART Implantable Pulse Generator Zipper Measurer [employer] PACEART Implantable Pulse Generator Model [id number] Jaime ESCOBAR PACEART Implantable Pulse Generator Serial Number [id number] PACEART Implantable Pulse Generator Type Pacemaker PACEART [...] reset 89.06 % PACEART Otf Statistic AP PEELER OPERATOR Percent 62.37 % PACEART Otf Statistic PEELER OPERATOR Percent 26.83 % PACEART Otf Statistic AP VS Percent 8.97 % PACEART Otf Statistic VS Percent 1.83 % PACEART AT/AF [place] Percent 0 % PACEART Episode Statistic Recent [...] ordered for function. Presenting rhythm: AP / PEELER OPERATOR @ 60 bpm. Underlying rhythm: SB @ [...] inserted atraumatically into the esophagus by the reception manager. With the patient in a supine position [...] ORDERABLES * Phosphorus (11/11/2024 2:00 PM EST) Pathologist [facility] Phosphorus 4.5 2.7 - 4.5 mg/dL 11/11/2024 3:00 PM EST [facility] Blood (Plasma/Serum) 11/11/2024 2:00 PM EST 11/11/2024 2:19 PM EST Nani Hollis PA-C LAB BLOOD ORDERABLES Performing Organization Address [facility] [place] [address], [place] [address] * Magnesium (11/11/2024 2:00 PM EST) Pathologist [facility] Magnesium 1.8 1.6 - 2.7 mg/dL 11/11/2024 3:00 PM EST [facility] Blood (Plasma/Serum) 11/11/2024 2:00 PM EST 11/11/2024 2:19 PM EST Nani Hollis PA-C LAB BLOOD ORDERABLES Performing Organization Address City/[facility] [place] [address], [place] [address] * (ABNORMAL) Basic Metabolic Panel (11/11/2024 2:00 PM EST) Glucose 124(H) 65 - 99 mg/dL 11/11/2024 3:[address] [facility] Comment:Fasting: <100 mg/dL, Non-Fasting: <200 mg/dL (ADA 2004) Blood Urea Nitrogen (BUN) 49(H) 8 - 21 mg/dL 11/11/2024 3:[address] [facility] Creatinine 1.7(H) 0.5 - 1.3 mg/dL 11/11/2024 3:[address] [facility] eGFR 45(L) >59 11/11/2024 3:[address] [facility] Comment:CKD-EPI (2020) in mL /min/1.73 sq meters. Sodium 139 136 - 145 mmol/L 11/11/2024 3:[address] [facility] Potassium 3.4 3.4 - 5.3 mmol/L 11/11/2024 3:[address] [facility] Chloride 97(L) 98 - 107 mmol/L 11/11/2024 3:[address] [facility] CO2 30 22 - 33 mmol/L 11/11/2024 3:[address] [facility] Anion Gap 12 7 - 17 11/11/2024 3:[address] [facility] Calcium 9.0 8.7 - 10.5 mg/dL 11/11/2024 3:[address] [facility] BUN/Creatinine Ratio 29(H) 10.0 - 25.0 Ratio 11/11/2024 3:[address] [facility] Blood (Plasma/Serum) 11/11/2024 2:00 PM EST 11/11/2024 2:19 PM EST Nani Hollis PA-C LAB BLOOD ORDERABLES [address] [address], [address] [address] * (ABNORMAL) POCT Glucose, Fingerstick (11/11/2024 11:53 AM EST) POC Glucose 139(H) 65 - 99 mg/dL 11/11/2024 12:02 PM EST Blood specimen / Unknown 11/11/2024 11:53 AM EST 11/11/2024 12:02 PM EST Dallas Camejo MD POINT OF CARE TEST O RDERALUCILLE Performing Organization Address [facility] Co nm Phone Number [facility] See Below * (ABNORMAL) POCT Glucose, Fingerstick (11/11/2024 7:31 AM EST) POC Glucose 202(H) 65 - 99 mg/dL 11/11/2024 7:32 AM EST Blood specimen / Unknown 11/11/2024 7:31 AM EST 11/11/2024 7:32 AM EST Dallas Camejo MD POINT OF CARE TEST O RDERABLES Performing Organization Address [facility] Phone Number [facility] See Below * (ABNORMAL) POCT Glucose, Fingerstick (11/11/2024 2:35 AM EST) POC Glucose 174(H) 65 - 99 mg/dL 11/11/2024 3:47 AM EST Blood specimen / Unknown 11/11/2024 2:35 AM EST 11/11/2024 3:46 AM EST Dallas Camejo MD POINT OF CARE TEST O RDERABLES Performing Organization Address [facility] Co de Phone Number [facility] See Below * (ABNORMAL) proBNP, N-terminal (11/11/2024 2:00 AM EST) proBNP, N-terminal 2,964(H) <125 pg/mL 11/11/2024 3:18 AM EST [facility] Blood Plasma specimen / Unknown 11/11/2024 2:00 AM EST 11/11/2024 2:53 AM EST Nani Hollis PA-C LAB BLOOD ORDERABLES Performing Organization Address [facility] Co de Phone Number [address] [address], [address] [address] * (ABNORMAL) Complete Blood Count, WITHOUT Differential (routine) (11/11/2024 2:00 AM EST) White Blood Cell Count 13.2(H) 4.0 - 11.0 Thou/uL 11/11/2024 2:[address] [facility] Platelet Count 460(H) 150 - 450 Thou/uL 11/11/2024 2:[address] [facility] Hemoglobin 8.2(L) 13.0 - 17.7 g/dL 11/11/2024 2:[address] [facility] Hematocrit 26.1(L) 39.0 - 54.0 % 11/11/2024 2:[address] [facility] Red Blood Cell Count 2.91(L) 4.50 - 6.20 Mil/uL 11/11/2024 2:[address] [facility] MCV 90 80 - 100 fL 11/11/2024 2:[address] [facility] MCH 28.2 27.0 - 31.0 pg 11/11/2024 2:[address] [facility] MCHC 31.4 30.0 - 36.0 g/dL 11/11/2024 2:[address] [facility] RDW 17.0(H) 11.5 - 14.5 % 11/11/2024 2:[address] [facility] MPV 9.8 7.5 - 12.5 fL 11/11/2024 2:[address] [facility] Blood Blood specimen / Unknown 11/11/2024 2:00 AM EST 11/11/2024 2:53 AM EST Nani Hollis PA-C LAB BLOOD ORDERABLES [address] [address], [address] [address] * (ABNORMAL) Phosphorus (11/11/2024 2:00 AM EST) Pathologist [facility] Phosphorus 4.7(H) 2.7 - 4.5 mg/dL 11/11/2024 3:[address] [facility] Blood (Plasma/Serum) 11/11/2024 2:00 AM EST 11/11/2024 2:53 AM EST Nani Hollis PA-C LAB BLOOD ORDERABLES Performing Organization Address City/[facility]/[place] [address], [place] [address] * Magnesium (11/11/2024 2:00 AM EST) Magnesium 2.0 1.6 - 2.7 mg/dL 11/11/2024 3:[address] [facility] Blood (Plasma/Serum) 11/11/2024 2:00 AM EST 11/11/2024 2:53 AM EST Nani Hollis PA-C LAB BLOOD ORDERABLES Performing Organization Address [facility] [place] [address], [place] [address] * (ABNORMAL) Basic Metabolic Panel (11/11/2024 2:00 AM EST) Glucose 151(H) 65 - 99 mg/dL 11/11/2024 3:[address] [facility] Comment:Fasting: <100 mg/dL, Non-Fasting: <200 mg/dL (ADA 2004) Blood Urea Nitrogen (BUN) 56(H) 8 - 21 mg/dL 11/11/2024 3:[address] [facility] Creatinine 2.0(H) 0.5 - 1.3 mg/dL 11/11/2024 3:[address] [facility] eGFR 37(L) >59 11/11/2024 3:[address] [facility] Comment:CKD-EPI (2020) in mL /min/1.73 sq meters. Sodium 137 136 - 145 mmol/L 11/11/2024 3:[address] [facility] Potassium 3.8 3.4 - 5.3 mmol/L 11/11/2024 3:[address] [facility] Chloride 99 98 - 107 mmol/L 11/11/2024 3:[address] [facility] CO2 27 22 - 33 mmol/L 11/11/2024 3:[address] [facility] Anion Gap 11 7 - 17 11/11/2024 3:[address] [facility] Calcium 8.7 8.7 - 10.5 mg/dL 11/11/2024 3:[address] [facility] BUN/Creatinine Ratio 28(H) 10.0 - 25.0 Ratio 11/11/2024 3:[address] [facility] Blood (Plasma/Serum) 11/11/2024 2:00 AM EST 11/11/2024 2:53 AM EST Nani Hollis PA-C [place] [address], [place] [address] * (ABNORMAL) Hepatic Function Panel (Routine) (11/11/2024 2:00 AM EST) Alkaline Phosphatase 207(H) 45 - 128 U/L 11/11/2024 3:[address] [facility] Aspartate Aminotrans (AST) 24 10 - 55 U/L 11/11/2024 3:[address] [facility] Alanine Aminotrans (ALT) 14 10 - 55 U/L 11/11/2024 3:[address] [facility] Bilirubin, Total 0.2 0.2 - 1.0 mg/dL 11/11/2024 3:[address] [facility] Protein, Total 6.4 6.3 - 8.3 g/dL 11/11/2024 3:[address] [facility] Albumin 2.6(L) 3.4 - 4.8 g/dL 11/11/2024 3:[address] [facility] Bilirubin, Direct 0.1 0 - 0.2 mg/dL 11/11/2024 3:[address] [facility] Globulin 3.8 1.5 - 3.9 g/dL 11/11/2024 3:[address] [facility] Albumin/Globulin Ratio 0.7(L) 1.0 - 3.0 Ratio 11/11/2024 3:[address] [facility] Blood (Plasma/Serum) 11/11/2024 2:00 AM EST 11/11/2024 2:53 AM EST Nani Hollis PA-C LAB BLOOD ORDERABLES Performing Organization Address [facility] [place] [address], [place] [address] * Creatine Kinase (CK) (11/11/2024 2:00 AM EST) Creatine Kinase (CK) 37 24 - 204 U/L 11/11/2024 3:18 AM EST [facility] Blood (Plasma/Serum) 11/11/2024 2:00 AM EST 11/11/2024 2:53 AM EST Nani Hollis PA-C LAB BLOOD ORDERABLES Performing Organization Address [facility] [place] [address], [place] [address] * (ABNORMAL) POCT Glucose, Fingerstick (11/10/2024 7:55 PM EST) Pathologist [facility] POC Glucose 229(H) 65 - 99 mg/dL 11/10/2024 7:56 PM EST Blood specimen / Unknown 11/10/2024 7:55 PM EST 11/10/2024 7:56 PM EST Dallas Camejo MD POINT OF CARE TEST O RDERABLES Performing Organization Address City/[facility] Co de Phone Number HOSPITAL LAB [...] POCT Glucose, Fingerstick (11/10/2024 4:01 PM EST) Pathologist [facility] POC Glucose 230(H) 65 - 99 mg/dL 11/10/2024 4:04 PM EST Blood specimen / Unknown 11/10/2024 4:01 PM EST 11/10/2024 4:04 PM EST Dallas Camejo MD POINT OF CARE TEST O RDERABLES HOSPITAL LAB See Below * (ABNORMAL) Phosphorus (11/10/2024 12:03 PM EST) Pathologist [facility] Phosphorus 5.2(H) 2.7 - 4.5 mg/dL 11/10/2024 1:06 PM EST [facility] Blood (Plasma/Serum) 11/10/2024 12:03 PM EST 11/10/2024 12:27 PM EST Nani Hollis PA-C LAB BLOOD ORDERABLES [address] [address], [address] [address] * Magnesium (11/10/2024 12:03 PM EST) Pathologist [facility] Magnesium 2.0 1.6 - 2.7 mg/dL 11/10/2024 1:[address] [facility] Blood (Plasma/Serum) 11/10/2024 12:03 PM EST 11/10/2024 12:27 PM EST Nani Hollis PA-C LAB BLOOD ORDERABLES [facility] [address] [place] [address], [facility] [address] [place] [address] * (ABNORMAL) Basic Metabolic Panel (11/10/2024 12:03 PM EST) Glucose 135(H) 65 - 99 mg/dL 11/10/2024 1:[address] [facility] Comment:Fasting: <100 mg/dL, Non-Fasting: <200 mg/dL (ADA 2004) Blood Urea Nitrogen (BUN) 57(H) 8 - 21 mg/dL 11/10/2024 1:[address] [facility] Creatinine 1.9(H) 0.5 - 1.3 mg/dL 11/10/2024 1:[address] [facility] eGFR 39(L) >59 11/10/2024 1:[address] [facility] Comment:CKD-EPI (2020) in mL /min/1.73 sq meters. Sodium 137 136 - 145 mmol/L 11/10/2024 1:[address] [facility] Potassium 3.8 3.4 - 5.3 mmol/L 11/10/2024 1:[address] [facility] Chloride 101 98 - 107 mmol/L 11/10/2024 1:[address] [facility] CO2 25 22 - 33 mmol/L 11/10/2024 1:[address] [facility] Anion Gap 11 7 - 17 11/10/2024 1:[address] [facility] Calcium 8.5(L) 8.7 - 10.5 mg/dL 11/10/2024 1:[address] [facility] BUN/Creatinine Ratio 30(H) 10.0 - 25.0 Ratio 11/10/2024 1:[address] [facility] Blood (Plasma/Serum) 11/10/2024 12:03 PM EST 11/10/2024 12:27 PM EST Nani Hollis PA-C LAB BLOOD ORDERABLES Performing Organization Address City/[facility]/ZIP Co de Phone Number [address] [address], [address] [address] * (ABNORMAL) POCT Glucose, Fingerstick (11/10/2024 11:36 AM EST) POC Glucose 143(H) 65 - 99 mg/dL 11/10/2024 11:36 AM EST Blood specimen / Unknown 11/10/2024 11:36 AM EST 11/10/2024 11:37 AM EST Dallas Camejo MD POINT OF CARE TEST O RDERABLES Performing Organization Address [facility] Co de Phone Number [facility] See Below * (ABNORMAL) POCT Glucose, Fingerstick (11/10/2024 7:42 AM EST) POC Glucose 134(H) 65 - 99 mg/dL 11/10/2024 7:43 AM EST Blood specimen / Unknown 11/10/2024 7:42 AM EST 11/10/2024 7:43 AM EST Dlalas Camejo MD POINT OF [...] 2.7 - 4.5 mg/dL 11/10/2024 1:[address] [facility] Blood (Plasma/Serum) 11/10/2024 12:04 AM EST 11/10/2024 12:33 AM EST Claire Garibay PA-C LAB BLOOD ORDERABLES Performing Organization Address City/[facility]/[place] [address], [place] [address] * Magnesium (11/10/2024 12:04 AM EST) Magnesium 2.1 1.6 - 2.7 mg/dL 11/10/2024 1:[address] [facility] Blood (Plasma/Serum) 11/10/2024 12:04 AM EST 11/10/2024 12:33 AM EST Claire Garibay PA-C LAB BLOOD ORDERABLES Performing Organization Address City/[facility] [place] [address], [place] [address] * (ABNORMAL) Basic Metabolic Panel (11/10/2024 12:04 AM EST) Glucose 122(H) 65 - 99 mg/dL 11/10/2024 1:[address] [facility] Comment:Fasting: <100 mg/dL, Non-Fasting: <200 mg/dL (ADA 2005) Blood Urea Nitrogen (BUN) 56(H) 8 - 21 mg/dL 11/10/2024 1:[address] [facility] Creatinine 2.0(H) 0.5 - 1.3 mg/dL 11/10/2024 1:[address] [facility] eGFR 37(L) >59 11/10/2024 1:[address] [facility] Comment:CKD-EPI (2020) in mL /min/1.73 sq meters. Sodium 135(L) 136 - 145 mmol/L 11/10/2024 1:[address] [facility] Potassium 3.8 3.4 - 5.3 mmol/L 11/10/2024 1:[address] [facility] Chloride 100 98 - 107 mmol/L 11/10/2024 1:[address] [facility] CO2 24 22 - 33 mmol/L 11/10/2024 1:[address] [facility] Anion Gap 11 7 - 17 11/10/2024 1:[address] [facility] Calcium 8.2(L) 8.7 - 10.5 mg/dL 11/10/2024 1:[address] [facility] BUN/Creatinine Ratio 28(H) 10.0 - 25.0 Ratio 11/10/2024 1:[address] [facility] Blood (Plasma/Serum) 11/10/2024 12:04 AM EST 11/10/2024 12:33 AM EST Claire Garibay PA-C LAB BLOOD ORDERABLES Performing Organization Address City/State/[facility] [place] [address], [place] [address] * (ABNORMAL) COMPLETE BLOOD COUNT, WITHOUT DIFFERENTIAL (11/10/2024 12:04 AM EST) White Blood Cell Count 13.5(H) 4.0 - 11.0 Thou/uL 11/10/2024 12:[address] [facility] Platelet Count 445 150 - 450 Thou/uL 11/10/2024 12:[address] [facility] Hemoglobin 7.6(L) 13.0 - 17.7 g/dL 11/10/2024 12:[address] [facility] Hematocrit 25.2(L) 39.0 - 54.0 % 11/10/2024 12:[address] [facility] Red Blood Cell Count 2.75(L) 4.50 - 6.20 Mil/uL 11/10/2024 12:[address] [facility] MCV 92 80 - 100 fL 11/10/2024 12:[address] [facility] MCH 27.6 27.0 - 31.0 pg 11/10/2024 12:[address] [facility] MCHC 30.2 30.0 - 36.0 g/dL 11/10/2024 12:[address] [facility] RDW 17.2(H) 11.5 - 14.5 % 11/10/2024 12:[address] [facility] MPV 9.7 7.5 - 12.5 fL 11/10/2024 12:[address] [facility] Blood Blood specimen / Unknown 11/10/2024 12:04 AM EST 11/10/2024 12:33 AM EST Claire Garibay PA-C [place] [address], [place] [address] * (ABNORMAL) POCT Glucose, Fingerstick (11/09/2024 8:03 [...] proBNP, N-terminal (11/09/2024 10:04 AM EST) Pathologist [facility] proBNP, N-terminal 4,654(H) <125 pg/mL 11/09/2024 12:58 PM EST [facility] Plasma specimen / Unknown 11/09/2024 10:04 AM EST 11/09/2024 10:25 AM EST Claire Garibay PA-C LAB BLOOD ORDERABLES Performing Organization Address [facility] [place] [address], [place] [address] * (ABNORMAL) Procalcitonin (11/09/2024 10:04 AM EST) Pathologist [facility] Procalcitonin 0.40(H) <0.09 ng/mL 11/09/2024 11:01 AM EST [facility] Comment: (NOTE) ?Procalcitonin (PCT) Guided Antibiotic ? [...] EST Claire Garibay PA-C [place] [address], [place] [address] * (ABNORMAL) POCT Glucose, Fingerstick (11/09/2024 7:29 AM EST) POC Glucose 153(H) 65 - 99 mg/dL 11/09/2024 7:33 AM EST Blood specimen / Unknown 11/09/2024 7:29 AM EST 11/09/2024 7:33 AM EST Dallas Camejo MD POINT OF CARE TEST [facility] See Below * (ABNORMAL) Phosphorus (11/09/2024 1:50 AM EST) Phosphorus 5.2(H) 2.7 - 4.5 mg/dL 11/09/2024 2:56 AM EST [facility] Blood (Plasma/Serum) 11/09/2024 1:50 AM EST 11/09/2024 2:31 AM EST Shay Martin MD LAB BLOOD ORDERAB LES Performing Organization Address [facility] [place] [address], [place] [address] * Magnesium (11/09/2024 1:50 AM EST) Magnesium 2.3 1.6 - 2.7 mg/dL 11/09/2024 2:56 AM EST [facility] Blood (Plasma/Serum) 11/09/2024 1:50 AM EST 11/09/2024 2:31 AM EST Shay Martin MD LAB BLOOD ORDERAB LES Performing Organization Address City/[facility] [place] [address], [place] [address] * (ABNORMAL) COMPLETE BLOOD COUNT, WITHOUT DIFFERENTIAL (11/09/2024 1:50 AM EST) White Blood Cell Count 11.9(H) 4.0 - 11.0 Thou/uL 11/09/2024 2:36 AM EST [facility] Platelet Count 405 150 - 450 Thou/uL 11/09/2024 2:[address] [facility] Hemoglobin 7.7(L) 13.0 - 17.7 g/dL 11/09/2024 2:[address] [facility] Hematocrit 24.9(L) 39.0 - 54.0 % 11/09/2024 2:[address] [facility] Red Blood Cell Count 2.72(L) 4.50 - 6.20 Mil/uL 11/09/2024 2:[address] [facility] MCV 92 80 - 100 fL 11/09/2024 2:[address] [facility] MCH 28.3 27.0 - 31.0 pg 11/09/2024 2:[address] [facility] MCHC 30.9 30.0 - 36.0 g/dL 11/09/2024 2:[address] [facility] RDW 17.1(H) 11.5 - 14.5 % 11/09/2024 2:[address] [facility] MPV 9.6 7.5 - 12.5 fL 11/09/2024 2:[address] [facility] Blood Blood specimen / Unknown 11/09/2024 1:50 AM EST 11/09/2024 2:31 AM EST Shay Martin MD LAB BLOOD ORDERAB LES Performing Organization Address City/State/[facility] [place] [address], [place] [address] * (ABNORMAL) Basic Metabolic Panel (11/09/2024 1:50 AM EST) Glucose 117(H) 65 - 99 mg/dL 11/09/2024 2:[address] [facility] Comment:Fasting: <100 mg/dL, Non-Fasting: <200 mg/dL (ADA 2005) Blood Urea Nitrogen (BUN) 46(H) 8 - 21 mg/dL 11/09/2024 2:[address] [facility] Creatinine 1.8(H) 0.5 - 1.3 mg/dL 11/09/2024 2:[address] [facility] [facility] [facility] eGFR 42(L) >59 11/09/2024 2:[address] [facility] Comment:CKD-EPI (2020) in mL /min/1.73 sq meters. Sodium 139 136 - 145 mmol/L 11/09/2024 2:[address] [facility] Potassium 3.6 3.4 - 5.3 mmol/L 11/09/2024 2:[address] [facility] Chloride 101 98 - 107 mmol/L 11/09/2024 2:[address] [facility] CO2 25 22 - 33 mmol/L 11/09/2024 2:[address] [facility] Anion Gap 13 7 - 17 11/09/2024 2:[address] [facility] Calcium 8.2(L) 8.7 - 10.5 mg/dL 11/09/2024 2:[address] [facility] BUN/Creatinine Ratio 26(H) 10.0 - 25.0 Ratio 11/09/2024 2:[address] [facility] Blood (Plasma/Serum) 11/09/2024 1:50 AM EST 11/09/2024 2:31 AM EST Shay Martin MD [place] [address], [place] [address] * (ABNORMAL) POCT Glucose, Fingerstick (11/09/2024 1:41 [...] CARE TEST O JOSEPH Performing Organization Address City/[facility] Co de Phone Number [facility] See Below * (ABNORMAL) POCT Glucose, Fingerstick (11/08/2024 7:58 PM EST) POC Glucose 212(H) 65 - 99 mg/dL 11/08/2024 8:49 PM EST Blood specimen / Unknown 11/08/2024 7:58 PM EST 11/08/2024 8:49 PM EST Dallas Camejo MD POINT OF CARE TEST O JOSEPH Performing Organization Address [facility] Phone Number [facility] See Below * INSJ NON-TUNNELED CENTRAL [...] the correct patient, procedure, equipment, system support administrator and site/side marked as required. Indications: vascular [...] 7.35 7.33 - 7.43 11/08/2024 6:[address] [facility] Venous pCO2 49 35 - 50 mmHG 11/08/2024 6:[address] [facility] Venous pO2 45 0 - 60 mmHG 11/08/2024 6:[address] [facility] Venous Total CO2 28 23 - 29 mmol/L 11/08/2024 6:[address] [facility] Respiratory Info NASAL 6 L/MIN 11/08/2024 5:29 PM EST Base Excess 0.9 mmol/L 11/08/2024 6:[address] [facility] Comment:Reference Range: Neg ative 2 to Positive 3 Blood Blood specimen / Unknown 11/08/2024 5:46 PM EST 11/08/2024 5:55 PM EST Eunice Garrison APRN [place] [address], [address] [address] * (ABNORMAL) Phosphorus (Routine) (11/08/2024 5:46 PM EST) Phosphorus 4.9(H) 2.7 - 4.5 mg/dL 11/08/2024 7:[address] [facility] Blood (Plasma/Serum) 11/08/2024 5:46 PM EST 11/08/2024 6:51 PM EST Eunice Garrison APRN LAB BLOOD ORDERA BLES Performing Organization Address City/[facility]/[place] [address], [place] [address] * Magnesium (Routine) (11/08/2024 5:46 PM EST) Magnesium 1.9 1.6 - 2.7 mg/dL 11/08/2024 7:[address] [facility] Blood (Plasma/Serum) 11/08/2024 5:46 PM EST 11/08/2024 6:51 PM EST Eunice Garrison APRN LAB BLOOD ORDERA BLES Performing Organization Address City/[facility]/[place] [address], [place] [address] * (ABNORMAL) Basic Metabolic Panel (Routine) (11/08/2024 5:46 PM EST) Glucose 134(H) 65 - 99 mg/dL 11/08/2024 7:[address] [facility] Comment:Fasting: <100 mg/dL, Non-Fasting: <200 mg/dL (ADA 2004) Blood Urea Nitrogen (BUN) 45(H) 8 - 21 mg/dL 11/08/2024 7:[address] [facility] Creatinine 1.7(H) 0.5 - 1.3 mg/dL 11/08/2024 7:[address] [facility] eGFR 45(L) >59 11/08/2024 7:[address] [facility] Comment:CKD-EPI (2020) in mL /min/1.73 sq meters. Sodium 141 136 - 145 mmol/L 11/08/2024 7:[address] [facility] Potassium 3.3(L) 3.4 - 5.3 mmol/L 11/08/2024 7:[address] [facility] Chloride 102 98 - 107 mmol/L 11/08/2024 7:[address] [facility] CO2 26 22 - 33 mmol/L 11/08/2024 7:[address] [facility] Anion Gap 13 7 - 17 11/08/2024 7:[address] [facility] Calcium 8.6(L) 8.7 - 10.5 mg/dL 11/08/2024 7:[address] [facility] BUN/Creatinine Ratio 26(H) 10.0 - 25.0 Ratio 11/08/2024 7:[address] [facility] Blood (Plasma/Serum) 11/08/2024 5:46 PM EST 11/08/2024 6:51 PM EST Eunice Garrison [employer] [place] [address], [place] [address] * XR Chest 1 view-Portable (STAT) (11/08/2024 [...] prior study. Interpreted by: ??Bashir Barrientos MD Fitting Room Operator I personally reviewed the images and the [...] prior study. Interpreted by: Bashir Barrientos MD Fitting Room Operator I personally reviewed the images and the resident's preliminary report and AGREE with the report as it is now presented ([email or web address]). Eunice Garrison APRN IMG DIAGNOSTIC I MAGING ORDERABLES * (ABNORMAL) POCT Glucose, Fingerstick (11/08/2024 5:34 PM EST) [facility] POC Glucose 170(H) 65 - 99 mg/dL [...] CARE TEST O RDERALUCILLE Performing Organization Address [facility] de Phone Number HOSPITAL LAB See Below * (ABNORMAL) POCT Glucose, Fingerstick (11/08/2024 7:46 AM EST) POC Glucose 198(H) 65 - 99 mg/dL 11/08/2024 7:55 AM EST Blood specimen / Unknown 11/08/2024 7:46 AM EST 11/08/2024 7:54 AM EST Dallas Camejo MD POINT OF CARE TEST O JOSEPH Performing Organization Address [facility] Number HOSPITAL LAB See Below * CT [...] T (Once) (11/08/2024 12:05 AM EST) Pathologist [facility] High Sensitivity Troponin T 26(H) <23 ng/L 11/08/2024 12:39 AM EST [facility] Delta (Change) NO CHANGE <3 11/08/2024 12:39 AM EST [facility] Blood (Plasma/Serum) 11/08/2024 12:05 AM EST 11/08/2024 12:16 AM EST Kayla Orona [employer] LAB BLOOD ORDERABLES Performing Organization Address City/[facility]/ZIP Co de Phone Number [address] [address], [address] [address] * Creatine Kinase (CK) (11/08/2024 12:05 AM EST) Creatine Kinase (CK) 91 24 - 204 U/L 11/08/2024 12:[address] [facility] Blood (Plasma/Serum) 11/08/2024 12:05 AM EST 11/08/2024 12:16 AM EST Kayla [facility] LAB BLOOD ORDERABLES Performing Organization Address City/[facility]/[place] [address], [place] [address] * (ABNORMAL) proBNP, N-terminal (11/08/2024 12:05 AM EST) proBNP, N-terminal 4,241(H) <125 pg/mL 11/08/2024 12:[address] [facility] Blood Plasma specimen / Unknown 11/08/2024 12:05 AM EST 11/08/2024 12:16 AM EST Kayla [facility] LAB BLOOD ORDERABLES Performing Organization Address City/[facility]/ZIP Co de Phone Number [address] [address], [address] [address] * (ABNORMAL) HEPATIC FUNCTION PANEL (11/08/2024 12:05 AM EST) Alkaline Phosphatase 226(H) 45 - 128 U/L 11/08/2024 12:[address] [facility] Aspartate Aminotrans (AST) 24 10 - 55 U/L 11/08/2024 12:[address] [facility] Alanine Aminotrans (ALT) 24 10 - 55 U/L 11/08/2024 12:[address] [facility] Bilirubin, Total <0.2(L) 0.2 - 1.0 mg/dL 11/08/2024 12:[address] [facility] Protein, Total 5.5(L) 6.3 - 8.3 g/dL 11/08/2024 12:[address] [facility] Albumin 2.3(L) 3.4 - 4.8 g/dL 11/08/2024 12:[address] [facility] Bilirubin, Direct 0.1 0 - 0.2 mg/dL 11/08/2024 12:[address] [facility] Globulin 3.2 1.5 - 3.9 g/dL 11/08/2024 12:[address] [facility] Albumin/Globulin Ratio 0.7(L) 1.0 - 3.0 Ratio 11/08/2024 12:[address] [facility] Blood (Plasma/Serum) 11/08/2024 12:05 AM EST 11/08/2024 12:16 AM EST Kayla Orona APRN LAB BLOOD ORDERABLES Performing Organization Address City/State/[facility] [place] [address], [place] [address] * (ABNORMAL) COMPLETE BLOOD COUNT, WITHOUT DIFFERENTIAL (11/08/2024 12:05 AM EST) White Blood Cell Count 13.1(H) 4.0 - 11.0 Thou/uL 11/08/2024 12:[address] [facility] Platelet Count 378 150 - 450 Thou/uL 11/08/2024 12:[address] [facility] Hemoglobin 7.9(L) 13.0 - 17.7 g/dL 11/08/2024 12:[address] [facility] Hematocrit 25.6(L) 39.0 - 54.0 % 11/08/2024 12:[address] [facility] Red Blood Cell Count 2.83(L) 4.50 - 6.20 Mil/uL 11/08/2024 12:[address] [facility] MCV 91 80 - 100 fL 11/08/2024 12:[address] [facility] MCH 27.9 27.0 - 31.0 pg 11/08/2024 12:[address] [facility] MCHC 30.9 30.0 - 36.0 g/dL 11/08/2024 12:[address] [facility] RDW 16.9(H) 11.5 - 14.5 % 11/08/2024 12:[address] [facility] MPV 9.3 7.5 - 12.5 fL 11/08/2024 12:[address] [facility] Blood Blood specimen / Unknown 11/08/2024 12:05 AM EST 11/08/2024 12:16 AM EST [facility] [place] [address], [place] [address] * (ABNORMAL) Phosphorus (11/08/2024 12:05 AM EST) Phosphorus 5.2(H) 2.7 - 4.5 mg/dL 11/08/2024 12:[address] [facility] Blood (Plasma/Serum) 11/08/2024 12:05 AM EST 11/08/2024 12:16 AM EST [facility] [place] [address], [place] [address] * Magnesium (11/08/2024 12:05 AM EST) Magnesium 2.0 1.6 - 2.7 mg/dL 11/08/2024 12:[address] [facility] Blood (Plasma/Serum) 11/08/2024 12:05 AM EST 11/08/2024 12:16 [facility] [place] [address], [place] [address] * (ABNORMAL) Basic Metabolic Panel (11/08/2024 12:05 AM EST) Glucose 231(H) 65 - 99 mg/dL 11/08/2024 12:[address] [facility] Comment:Fasting: <100 mg/dL, Non-Fasting: <200 mg/dL (ADA 2004) Blood Urea Nitrogen (BUN) 48(H) 8 - 21 mg/dL 11/08/2024 12:[address] [facility] Creatinine 1.6(H) 0.5 - 1.3 mg/dL 11/08/2024 12:[address] [facility] eGFR 48(L) >59 11/08/2024 12:[address] [facility] Comment:CKD-EPI (2020) in mL /min/1.73 sq meters. Sodium 133(L) 136 - 145 mmol/L 11/08/2024 12:[address] [facility] Potassium 3.8 3.4 - 5.3 mmol/L 11/08/2024 12:[address] [facility] Chloride 98 98 - 107 mmol/L 11/08/2024 12:[address] [facility] CO2 21(L) 22 - 33 mmol/L 11/08/2024 12:[address] [facility] Anion Gap 14 7 - 17 11/08/2024 12:[address] [facility] Calcium 7.9(L) 8.7 - 10.5 mg/dL 11/08/2024 12:[address] [facility] BUN/Creatinine Ratio 30(H) 10.0 - 25.0 Ratio 11/08/2024 12:[address] [facility] Blood (Plasma/Serum) 11/08/2024 12:05 AM EST 11/08/2024 12:16 AM EST Kayla Orona APRN LAB BLOOD ORDERABLES [address] [address], [place] [address] * (ABNORMAL) POCT Glucose, Fingerstick (11/07/2024 7:47 PM EST) Pathologist [facility] POC Glucose 261(H) 65 - 99 mg/dL 11/07/2024 7:53 PM EST Blood specimen / Unknown 11/07/2024 7:47 PM EST 11/07/2024 7:53 PM EST Dallas Camejo MD POINT OF CARE TEST O RDERABLES HOSPITAL LAB See Below * Respiratory PCR Panel (11/07/2024 6:30 PM EST) [facility] Adenovirus Not Detected Not Detected 11/08/2024 12:23 [...] Detected 11/08/2024 12:23 AM [facility] Bordetella pertussis Not Detected Not Detected 11/08/2024 12:[address] [facility] Chlamydophila pneumoniae Not Detected Not Detected 11/08/2024 12:[address] [facility] Mycoplasma pneumoniae Not Detected Not Detected 11/08/2024 12:[address] [facility] Bordetella parapertussis Not Detected Not Detected 11/08/2024 12:[address] [facility] SARS CoV 2 Not Detected Not Detected 11/08/2024 12:[address] [facility] X-Specimen 24 Nasopharyngeal swab / Unknown 11/07/2024 6:30 PM EST 11/07/2024 8:00 PM EST Kayla Orona APRN MICROBIOLOGY - GENER AL ORDERABLES [facility] [address] [place] [address], * (ABNORMAL) High Sensitivity Troponin T (Once) (11/07/2024 4:12 PM EST) High Sensitivity Troponin T 29(H) <23 ng/L 11/07/2024 5:[address] [facility] Delta (Change) 3(H) <3 11/07/2024 5:[address] [facility] Comment:Increased Blood (Plasma/Serum) 11/07/2024 4:12 PM EST 11/07/2024 5:01 PM EST Kayla Orona APRN LAB BLOOD ORDERABLES [facility] [address] [place] [address], [address] [address] * (ABNORMAL) Phosphorus (11/07/2024 4:12 PM EST) Phosphorus 4.7(H) 2.7 - 4.5 mg/dL 11/07/2024 5:[address] [facility] Blood (Plasma/Serum) 11/07/2024 4:12 PM EST 11/07/2024 5:01 PM EST [facility] [place] [address], [place] [address] * Magnesium (11/07/2024 4:12 PM EST) Magnesium 2.2 1.6 - 2.7 mg/dL 11/07/2024 5:[address] [facility] Blood (Plasma/Serum) 11/07/2024 4:12 PM EST 11/07/2024 5:01 PM EST [facility] LAB BLOOD ORDERABLES Performing Organization Address City/[facility] [place] [address], [place] [address] * (ABNORMAL) Basic Metabolic Panel (11/07/2024 4:12 PM EST) Glucose 183(H) 65 - 99 mg/dL 11/07/2024 5:[address] [facility] Comment:Fasting: <100 mg/dL, Non-Fasting: <200 mg/dL (ADA 2005) Blood Urea Nitrogen (BUN) 47(H) 8 - 21 mg/dL 11/07/2024 5:[address] [facility] Creatinine 1.6(H) 0.5 - 1.3 mg/dL 11/07/2024 5:[address] [facility] eGFR 48(L) >59 11/07/2024 5:[address] [facility] Comment:CKD-EPI (2020) in mL /min/1.73 sq meters. Sodium 131(L) 136 - 145 mmol/L 11/07/2024 5:[address] [facility] Potassium 3.7 3.4 - 5.3 mmol/L 11/07/2024 5:[address] [facility] Chloride 98 98 - 107 mmol/L 11/07/2024 5:[address] [facility] CO2 21(L) 22 - 33 mmol/L 11/07/2024 5:28 PM EST [facility] Anion Gap 12 7 - 17 11/07/2024 5:28 PM EST [facility] Calcium 8.1(L) 8.7 - 10.5 mg/dL 11/07/2024 5:28 PM EST [facility] BUN/Creatinine Ratio 29(H) 10.0 - 25.0 Ratio 11/07/2024 5:28 PM EST [facility] Blood (Plasma/Serum) 11/07/2024 4:12 PM EST 11/07/2024 5:01 PM EST Kayla Orona APRN LAB BLOOD ORDERABLES Performing Organization Address City/[facility]/[place] [address], [place] [address] * (ABNORMAL) POCT Glucose, Fingerstick (11/07/2024 3:53 PM EST) POC Glucose 179(H) 65 - 99 mg/dL 11/07/2024 3:58 PM EST Blood specimen / Unknown 11/07/2024 3:53 PM EST 11/07/2024 3:58 PM EST Dallas Camejo MD POINT OF CARE TEST O RDERABLES HOSPITAL LAB See Below * ECG 12 lead (11/07/2024 2:58 PM EST) Systolic BP 116 mmHg EKG [facility] Diastolic BP 57 mmHg EKG [facility] Ventricular rate 62 BPM EKG [facility] Atrial rate 55 BPM EKG [facility] QRS duration 168 ms EKG [facility] Q-T interval 506 ms EKG [facility] QTC calculation (Bazett) 513 ms EKG [facility] R axis 104 degrees EKG [facility] T axis -39 degrees EKG [facility] 11/07/2024 2:58 PM EST Narrative EKG [facility] - 11/07/2024 6:25 PM EST Ventricular-paced rhythm [...] Camejo MD ECG ORDERABLES Performing Organization Address City/[facility] Co de Phone Number EKG [facility] * BLOOD CULTURE Peripheral (11/07/2024 1:02 PM EST) Culture Sterile after 5 days 11/12/2024 7:50 AM EST [facility] Microbiology Peripheral blood specimen / Unknown 11/07/2024 1:02 PM EST 11/07/2024 1:23 PM EST Chris Taylor MD LAB AMB MICRO ORDERA BLES Performing Organization Address [facility] Co de Phone Number [facility] [address] [place] [address], * BLOOD CULTURE Peripheral (11/07/2024 12:57 PM EST) Culture Sterile after 5 days 11/12/2024 7:50 AM EST [facility] Microbiology Peripheral blood specimen / Unknown 11/07/2024 12:57 PM EST 11/07/2024 1:49 PM EST Chris Taylor MD LAB AMB MICRO ORDERA BLES Performing Organization Address [facility] Co de Phone Number [facility] [address] [place] [address], * (ABNORMAL) Blood Gas, Arterial (STAT) (11/07/2024 12:36 PM EST) pH, Arterial 7.38 7.35 - 7.45 11/07/2024 1:02 PM EST [facility] pCO2, Arterial 36 32 - 45 mmHG 11/07/2024 1:[address] [facility] pO2, Arterial 119(H) 75 - 95 mmHG 11/07/2024 1:[address] [facility] CO2, Total 22 22 - 28 mmol/L 11/07/2024 1:[address] [facility] Respiratory Info OTHER 11/07/19 12:36 PM EST Base Deficiency 3.5 mmol/L 1:[address] [facility] Comment:Reference Range: Neg ative 2 to Positive 3 Blood Blood specimen / Unknown 11/07/2024 12:36 PM EST 11/07/2024 12:50 PM EST Kayla Orona APRN LAB BLOOD ORDERABLES Performing Organization Address [facility]/[place] [address], [place] [address] * (ABNORMAL) POCT Glucose, Fingerstick (11/07/2024 12:29 [...] to prior. Interpreted by: ??Roberto Tolbert MD Fitting Room Operator I personally reviewed the images and the [...] to prior. Interpreted by: Roberto Tolbert MD Fitting Room Operator I personally reviewed the images and the resident's preliminary report and AGREE with the report as it is now presented ([email or web address]). Juaquin Kern MD IMG DIAGNOSTIC [place] [facility] ORDERABLES * (ABNORMAL) High Sensitivity Troponin T (11/07/2024 8:13 AM EST) High Sensitivity Troponin T 26(H) <23 ng/L 11/07/2024 12:53 PM EST [facility] Delta (Change) NO PREVIOUS RESULT <3 11/07/2024 12:53 PM EST [facility] Plasma/Serum 11/07/2024 8:13 AM EST 11/07/2024 8:49 AM EST Juaquin Kern MD [place] [address], [place] [address] * (ABNORMAL) proBNP, N-terminal (11/07/2024 8:13 AM EST) proBNP, N-terminal 3,427(H) <125 pg/mL 11/07/2024 10:[address] [facility] Plasma specimen / Unknown 11/07/2024 8:13 AM EST 11/07/2024 8:49 AM EST Juaquin Kern MD [place] [address], [place] [address] * (ABNORMAL) Complete Blood Count, WITHOUT Differential (routine) (11/07/2024 8:13 AM EST) Pathologist [facility] White Blood Cell Count 12.4(H) 4.0 - 11.0 Thou/uL 11/07/2024 9:[address] [facility] Platelet Count 430 150 - 450 Thou/uL 11/07/2024 9:[address] [facility] Hemoglobin 8.9(L) 13.0 - 17.7 g/dL 11/07/2024 9:[address] [facility] Hematocrit 28.9(L) 39.0 - 54.0 % 11/07/2024 9:[address] [facility] Red Blood Cell Count 3.16(L) 4.50 - 6.20 Mil/uL 11/07/2024 9:[address] [facility] MCV 92 80 - 100 fL 11/07/2024 9:[address] [facility] MCH 28.2 27.0 - 31.0 pg 11/07/2024 9:[address] [facility] MCHC 30.8 30.0 - 36.0 g/dL 11/07/2024 9:[address] [facility] RDW 16.7(H) 11.5 - 14.5 % 11/07/2024 9:[address] [facility] MPV 9.6 7.5 - 12.5 fL 11/07/2024 9:[address] [facility] nRBC 0.2(H) 0.0 - 0.1 /100 WBC 11/07/2024 9:[address] [facility] nRBC, Absolute 0.03(H) 0.00 - 0.02 Thou/uL 11/07/2024 9:[address] [facility] Blood Blood specimen / Unknown 11/07/2024 8:13 AM EST 11/07/2024 8:49 AM EST Juaquin Kern MD LAB BLOOD ORDERABL ES Performing Organization Address City/[facility]/[place] [address], [place] [address] * MAGNESIUM (11/07/2024 8:13 AM EST) Magnesium 2.3 1.6 - 2.7 mg/dL 11/07/2024 9:[address] [facility] Blood (Plasma/Serum) 11/07/2024 8:13 AM EST 11/07/2024 8:49 AM EST Juaquin Kenr MD LAB BLOOD ORDERABL ES Performing Organization Address [facility] [place] [address], [place] [address] * PHOSPHORUS (11/07/2024 8:13 AM EST) Phosphorus 4.3 2.7 - 4.5 mg/dL 11/07/2024 9:[address] [facility] Blood (Plasma/Serum) 11/07/2024 8:13 AM EST 11/07/2024 8:49 AM EST Juaquin Kern MD LAB BLOOD ORDERABL ES Performing Organization Address City/[facility]/[place] [address], [place] [address] * (ABNORMAL) Comprehensive Metabolic Panel (11/07/2024 8:13 AM [facility]) Glucose 188(H) 65 - 99 mg/dL 11/07/2024 9:[address] [facility] Comment:Fasting: <100 mg/dL, Non-Fasting: <200 mg/dL (ADA 2004) Blood Urea Nitrogen (BUN) 47(H) 8 - 21 mg/dL 11/07/2024 9:[address] [facility] Creatinine 1.5(H) 0.5 - 1.3 mg/dL 11/07/2024 9:[address] [facility] eGFR 52(L) >59 11/07/2024 9:[address] [facility] Comment:CKD-EPI (2020) in mL /min/1.73 sq meters. Sodium 129(L) 136 - 145 mmol/L 11/07/2024 9:26 [facility] Potassium 3.9 3.4 - 5.3 mmol/L 11/07/2024 9:26 [facility] Chloride 94(L) 98 - 107 mmol/L 11/07/2024 9:[address] [facility] CO2 22 22 - 33 mmol/L 11/07/2024 9:[address] [facility] Calcium 8.3(L) 8.7 - 10.5 mg/dL 11/07/2024 9:[address] [facility] Alkaline Phosphatase 220(H) 45 - 128 U/L 11/07/2024 9:26 [facility] Aspartate Aminotrans (AST) 28 10 - 55 U/L 11/07/2024 9:[address] [facility] Alanine Aminotrans (ALT) 29 10 - 55 U/L 11/07/2024 9:[address] [facility] Bilirubin, Total 0.2 0.2 - 1.0 mg/dL 11/07/2024 9:26 [facility] Protein, Total 6.1(L) 6.3 - 8.3 g/dL 11/07/2024 9:[address] [facility] Albumin 2.6(L) 3.4 - 4.8 g/dL 11/07/2024 9:26 [facility] BUN/Creatinine Ratio 31(H) 10.0 - 25.0 Ratio 11/07/2024 9:[address] [facility] Globulin 3.5 1.5 - 3.9 g/dL 11/07/2024 9:[address] [facility] Albumin/Globulin Ratio 0.7(L) 1.0 - 3.0 Ratio 11/07/2024 9:26 AM EST [facility] Anion Gap 13 7 - 17 11/07/2024 9:26 AM EST [facility] Blood (Plasma/Serum) 11/07/2024 8:13 AM EST 11/07/2024 8:49 AM EST Juaquin Kern MD [place] [address], [place] [address] * (ABNORMAL) POCT Glucose, Fingerstick (11/07/2024 7:33 [...] CARE TEST [place] Performing Organization Address [facility] LAB See Below * (ABNORMAL) POCT Glucose, Fingerstick (11/06/2024 5:24 PM EST) POC Glucose 193(H) 65 - 99 mg/dL 11/06/2024 5:29 PM EST Blood specimen / Unknown 11/06/2024 5:24 PM EST 11/06/2024 5:29 PM EST Dallas Camejo MD POINT OF CARE TEST [place] Performing Organization Address [facility] LAB See Below * (ABNORMAL) POCT Glucose, Fingerstick (11/06/2024 2:45 PM EST) POC Glucose 217(H) 65 - 99 mg/dL 11/06/2024 2:46 PM EST Blood specimen / Unknown 11/06/2024 2:45 PM EST 11/06/2024 2:46 PM EST Dallas Camejo MD POINT OF CARE TEST [place] Performing Organization Address [facility] LAB See Below * (ABNORMAL) POCT Glucose, Fingerstick (11/06/2024 12:10 PM EST) POC Glucose 229(H) 65 - 99 mg/dL 11/06/2024 2:24 PM EST Blood specimen / Unknown 11/06/2024 12:10 PM EST 11/06/2024 2:24 PM EST Dallas Camejo MD POINT OF CARE TEST [place] Performing Organization Address [facility] LAB See Below * (ABNORMAL) POCT Glucose, Fingerstick (11/06/2024 7:51 AM EST) POC Glucose 210(H) 65 - 99 mg/dL 11/06/2024 8:43 AM EST Blood specimen / Unknown 11/06/2024 7:51 AM EST 11/06/2024 8:43 AM EST Dallas Camejo MD [facility] See Below * (ABNORMAL) Complete Blood Count WITH Differential - Early AM (11/06/2024 4:58 AM EST) Pathologist [facility] White Blood Cell Count 11.9(H) 4.0 - 11.0 Thou/uL 11/06/2024 5:[address] [facility] Platelet Count 346 150 - 450 Thou/uL 11/06/2024 5:[address] [facility] Hemoglobin 8.7(L) 13.0 - 17.7 g/dL 11/06/2024 5:[address] [facility] Hematocrit 27.9(L) 39.0 - 54.0 % 11/06/2024 5:[address] [facility] Red Blood Cell Count 3.05(L) 4.50 - 6.20 Mil/uL 11/06/2024 5:[address] [facility] MCV 92 80 - 100 fL 11/06/2024 5:[address] [facility] [facility] MCH 28.5 27.0 - 31.0 pg 11/06/2024 5:[address] [facility] MCHC 31.2 30.0 - 36.0 g/dL 11/06/2024 5:[address] [facility] RDW 16.4(H) 11.5 - 14.5 % 11/06/2024 5:[address] [facility] MPV 9.5 7.5 - 12.5 fL 11/06/2024 5:[address] [facility] Neutrophils Auto 88.8 % 11/06/19 5:[address] [facility] Immature Granulocytes 1.1 % 11/06/2024 5:[address] [facility] Lymphocytes Auto 3.4 % 11/06/19 5:[address] [facility] Monocytes Auto 6.6 % 11/06/2024 5:[address] [facility] Eosinophils Auto 0.0 % 11/06/19 5:[address] [facility] Basophils Auto 0.1 % 11/06/2024 5:[address] [facility] Abs Neutrophils Auto 10.57(H) 2.00 - 7.50 Thou/uL 11/06/2024 5:[address] [facility] Abs Immature Granulocytes 0.13(H) 0.00 - 0.10 Thou/uL 11/06/2024 5:[address] [facility] Abs Lymphocytes Auto 0.41(L) 1.50 - 4.50 Thou/uL 11/06/2024 5:[address] [facility] Abs Monocytes Auto 0.79 0.20 - 1.50 Thou/uL 11/06/2024 5:[address] [facility] Abs Eosinophils Auto 0.00 0.00 - 0.70 Thou/uL 11/06/2024 5:[address] [facility] Abs Basophils Auto 0.01 0.00 - 0.20 Thou/uL 11/06/2024 5:[address] [facility] Blood Blood specimen / Unknown 11/06/2024 4:58 AM EST 11/06/2024 5:15 AM EST Renea PATTON LAB BLOOD ORDERABLES Performing Organization Address [facility]/[place] [address], [place] [address] * (ABNORMAL) PHOSPHORUS (11/06/2024 4:58 AM EST) Phosphorus 5.1(H) 2.7 - 4.5 mg/dL 11/06/2024 5:[address] [facility] Blood (Plasma/Serum) 11/06/2024 4:58 AM EST 11/06/2024 5:15 AM EST Renea PATTON LAB BLOOD ORDERABLES [facility] [address] [place] [address], [facility] [address] [place] [address] * MAGNESIUM (11/06/2024 4:58 AM EST) Magnesium 2.5 1.6 - 2.7 mg/dL 11/06/2024 5:[address] [facility] Blood (Plasma/Serum) 11/06/2024 4:58 AM EST 11/06/2024 5:15 AM EST Renea PATTON [place] [address], [place] [address] * (ABNORMAL) Comprehensive Metabolic Panel (11/06/2024 4:58 AM EST) Glucose 194(H) 65 - 99 mg/dL 11/06/2024 5:[address] [facility] Comment:Fasting: <100 mg/dL, Non-Fasting: <200 mg/dL (ADA 2004) Blood Urea Nitrogen (BUN) 48(H) 8 - 21 mg/dL 11/06/2024 5:[address] [facility] Creatinine 1.7(H) 0.5 - 1.3 mg/dL 11/06/2024 5:[address] [facility] eGFR 45(L) >59 11/06/2024 5:[address] [facility] Comment:CKD-EPI (2020) in mL /min/1.73 sq meters. Sodium 131(L) 136 - 145 mmol/L 11/06/2024 5:[address] [facility] Potassium 3.8 3.4 - 5.3 mmol/L 11/06/2024 5:[address] [facility] Chloride 99 98 - 107 mmol/L 11/06/2024 5:[address] [facility] CO2 20(L) 22 - 33 mmol/L 11/06/2024 5:[address] [facility] Calcium 7.8(L) 8.7 - 10.5 mg/dL 11/06/2024 5:[address] [facility] Alkaline Phosphatase 270(H) 45 - 128 U/L 11/06/2024 5:[address] [facility] Aspartate Aminotrans (AST) 50 10 - 55 U/L 11/06/2024 5:[address] [facility] Alanine Aminotrans (ALT) 31 10 - 55 U/L 11/06/2024 5:[address] [facility] Bilirubin, Total 0.2 0.2 - 1.0 mg/dL 11/06/2024 5:[address] [facility] Protein, Total 5.7(L) 6.3 - 8.3 g/dL 11/06/2024 5:[address] [facility] Albumin 2.4(L) 3.4 - 4.8 g/dL 11/06/2024 5:[address] [facility] BUN/Creatinine Ratio 28(H) 10.0 - 25.0 Ratio 11/06/2024 5:[address] [facility] Globulin 3.3 1.5 - 3.9 g/dL 11/06/2024 5:[address] [facility] Albumin/Globulin Ratio 0.7(L) 1.0 - 3.0 Ratio 11/06/2024 5:[address] [facility] Anion Gap 12 7 - 17 11/06/2024 5:[address] [facility] Blood (Plasma/Serum) 11/06/2024 4:58 AM EST 11/06/2024 5:15 AM EST Renea PATTON [place] [address], [place] [address] * BLOOD CULTURE Peripheral (11/06/2024 4:58 AM EST) Culture Sterile after 5 days 11/11/2024 8:[address] [facility] Microbiology Peripheral blood specimen / Unknown 11/06/2024 4:58 AM EST 11/06/2024 5:36 AM EST Renea E Cafferty PA LAB AMB MICRO ORDERA BLES Performing Organization Address City/[facility]/ZIP Co de Phone Number [facility] [address] [place] [address], * BLOOD CULTURE Peripheral (11/06/2024 4:58 AM EST) Culture Sterile after 5 days 11/11/2024 8:20 AM EST [facility] Microbiology Peripheral blood specimen / Unknown 11/06/2024 4:58 AM EST 11/06/2024 5:36 AM EST Renea PATTON LAB AMB MICRO ORDERA BLES Performing Organization Address [facility] Co de Phone Number [facility] [address] [place] [address], * (ABNORMAL) POCT Glucose, Fingerstick (11/06/2024 1:17 [...] CARE TEST O RDERALUCILLE Performing Organization Address [facility] de Phone Number [facility] See Below * (ABNORMAL) POCT Glucose, Fingerstick (11/05/2024 3:37 PM EST) POC Glucose 138(H) 65 - 99 mg/dL 11/05/2024 3:38 PM EST Blood specimen / Unknown 11/05/2024 3:37 PM EST 11/05/2024 3:38 PM EST Dallas Camejo MD POINT OF CARE TEST O RDERALUCILLE Performing Organization Address [facility] Phone Number [facility] See Below * Pathology (11/05/2024 2:11 PM EST) Report [facility] [id number] ?? CLIA ID [id number] [address] [place] [address] ??[phone] Surgical Pathology Report PATIENT NAME: BLAS GENAO REC NUMBER: [id number] (AGE): 1960 (Age: 63) SPECIMEN NUMBER: [id number] DATE OBTAINED: 11/05/2024 DIAGNOSIS LEFT LOWER EXTREMITY, BELOW KNEE AMPUTATION: ??SEVERE PERIPHERAL ARTERIOSCLEROSIS WITH CALCIFICATION, GANGRENOUS ULCER OF FOOT WITH SEVERE ACUTE OSTEOMYELITIS. NEGATIVE AMPUTATION MARGIN. /11/16/2024 Electronically Signed Out ? SENA SHABAZZ MD COMMENT [id number], [id number] Clinical Information and History: Acute osteomyelitis of [...] other masses or lesions are grossly identified. ??Inventory Worker sections are submitted in A1 - ?? [...] tibial artery margin (inked blue), en face [facility] Bone with Tissue Structure of left lower leg / Unknown 11/05/2024 2:11 PM EST Dallas Camejo MD PATHOLOGY/CYTOLOGY O RDERALUCILLE Performing Organization Address [facility] Phone Number [facility] See Below * (ABNORMAL) POCT Glucose, Fingerstick (11/05/2024 12:54 PM EST) POC Glucose 128(H) 65 - 99 mg/dL 11/05/2024 2:08 PM EST Blood specimen / Unknown 11/05/2024 12:54 PM EST 11/05/2024 2:08 PM EST Dallas Camejo MD POINT OF CARE TEST O RDERABLES Performing Organization Address [facility] Phone Number [facility] See Below * (ABNORMAL) PROTIME-INR (11/05/2024 7:12 AM EST) Anticoagulant Information not given 11/05/2024 7:[address] [facility] Prothrombin Time (PT) 15.3(H) 10.0 - 13.5 seconds 11/05/2024 8:[address] [facility] INR 1.3 11/05/2024 8:[address] [facility] Comment:INR Therapeutic Rang es: Standard dose anticoagulant 2.0 to 3.0, High dose anticoagulant 2.5-3.5. Plasma specimen / Unknown 11/05/2024 7:12 AM EST 11/05/2024 7:46 AM EST Chris Taylor MD LAB BLOOD ORDERABLES [address] [address], [place] [address] * (ABNORMAL) COMPLETE BLOOD COUNT, WITHOUT DIFFERENTIAL (11/05/2024 7:12 AM EST) Pathologist [facility] White Blood Cell Count 15.9(H) 4.0 - 11.0 Thou/uL 11/05/2024 7:[address] [facility] Platelet Count 353 150 - 450 Thou/uL 11/05/2024 7:[address] [facility] Hemoglobin 9.1(L) 13.0 - 17.7 g/dL 11/05/2024 7:[address] [facility] Hematocrit 28.3(L) 39.0 - 54.0 % 11/05/2024 7:[address] [facility] Red Blood Cell Count 3.12(L) 4.50 - 6.20 Mil/uL 11/05/2024 7:[address] [facility] MCV 91 80 - 100 fL 11/05/2024 7:[address] [facility] MCH 29.2 27.0 - 31.0 pg 11/05/2024 7:[address] [facility] MCHC 32.2 30.0 - 36.0 g/dL 11/05/2024 7:[address] [facility] RDW 16.8(H) 11.5 - 14.5 % 11/05/2024 7:[address] [facility] MPV 9.8 7.5 - 12.5 fL 11/05/2024 7:[address] [facility] Blood specimen / Unknown 11/05/2024 7:12 AM EST 11/05/2024 7:46 AM EST Chris Taylor MD LAB BLOOD ORDERABLES [address] [address], [place] [address] * (ABNORMAL) BASIC METABOLIC PANEL (11/05/2024 7:12 AM EST) [facility] Glucose 146(H) 65 - 99 mg/dL 11/05/2024 8:[address] [facility] Comment:Fasting: <100 mg/dL, Non-Fasting: <200 mg/dL (ADA 2004) Blood Urea Nitrogen (BUN) 47(H) 8 - 21 mg/dL 11/05/2024 8:[address] [facility] Creatinine 2.0(H) 0.5 - 1.3 mg/dL 11/05/2024 8:[address] [facility] eGFR 37(L) >59 11/05/2024 8:[address] [facility] Comment:CKD-EPI (2020) in mL /min/1.73 sq meters. Sodium 130(L) 136 - 145 mmol/L 11/05/2024 8:[address] [facility] Potassium 3.4 3.4 - 5.3 mmol/L 11/05/2024 8:[address] [facility] Chloride 96(L) 98 - 107 mmol/L 11/05/2024 8:[address] [facility] CO2 19(L) 22 - 33 mmol/L 11/05/2024 8:[address] [facility] Anion Gap 15 7 - 17 11/05/2024 8:[address] [facility] Calcium 7.9(L) 8.7 - 10.5 mg/dL 11/05/2024 8:[address] [facility] BUN/Creatinine Ratio 24 10.0 - 25.0 Ratio 11/05/2024 8:[address] [facility] Plasma/Serum 11/05/2024 7:12 AM EST 11/05/2024 7:46 AM EST Chris Taylor MD [place] [address], [place] [address] * (ABNORMAL) Hepatic Function Panel (AM) (11/05/2024 7:12 AM EST) Alkaline Phosphatase 153(H) 45 - 128 U/L 11/05/2024 8:[address] [facility] Aspartate Aminotrans (AST) 26 10 - 55 U/L 11/05/2024 8:[address] [facility] Alanine Aminotrans (ALT) 23 10 - 55 U/L 11/05/2024 8:[address] [facility] Bilirubin, Total 0.3 0.2 - 1.0 mg/dL 11/05/2024 8:[address] [facility] Protein, Total 5.9(L) 6.3 - 8.3 g/dL 11/05/2024 8:[address] [facility] Albumin 2.5(L) 3.4 - 4.8 g/dL 11/05/2024 8:[address] [facility] Bilirubin, Direct 0.2 0 - 0.2 mg/dL 11/05/2024 8:[address] [facility] Globulin 3.4 1.5 - 3.9 g/dL 11/05/2024 8:[address] [facility] Albumin/Globulin Ratio 0.7(L) 1.0 - 3.0 Ratio 11/05/2024 8:[address] [facility] Blood (Plasma/Serum) 11/05/2024 7:12 AM EST 11/05/2024 7:46 AM EST Chrsi Taylor MD [place] [address], [place] [address] * Creatine Kinase, Reflex to CKMB (11/05/2024 7:12 AM EST) Creatine Kinase (CK) 49 24 - 204 U/L 11/05/2024 8:[address] [facility] Blood (Plasma/Serum) 11/05/2024 7:12 AM EST 11/05/2024 7:46 AM EST Chris Taylor MD [place] [address], [place] [address] * (ABNORMAL) POCT Glucose, Fingerstick (11/05/2024 6:26 AM EST) POC Glucose 166(H) 65 - 99 mg/dL 11/05/2024 6:27 AM EST Blood specimen / Unknown 11/05/2024 6:26 AM EST 11/05/2024 6:27 AM EST Dallas Camejo MD POINT OF CARE TEST O RDERALUCILLE Performing Organization Address [facility] Number [facility] See Below * (ABNORMAL) POCT Glucose, Fingerstick (11/05/2024 1:46 AM EST) POC Glucose 176(H) 65 - 99 mg/dL 11/05/2024 1:47 AM EST Blood specimen / Unknown 11/05/2024 1:46 AM EST 11/05/2024 1:47 AM EST Dallas Camejo MD POINT OF CARE TEST O JOSEPH Performing Organization Address [facility] Number [facility] See Below * XR Chest 1 view-Portable (STAT) (11/04/2024 11:17 PM EST) Anatomical Region Laterality Modality Chest Computed Radiogr aphy 11/04/2024 10:5 4 PM EST Impressions 11/05/2024 5:04 AM EST Bilateral reticulonodular opacities concerning for interstitial edema. Superimposed atypical infection cannot be ruled out. Interpreted by: ??David Vogt DO Fitting Room Operator I personally reviewed the images and the [...] ruled out. Interpreted by: David Vogt DO Fitting Room Operator I personally reviewed the images and the resident's preliminary report and AGREE with the report as it is now presented (RADPAL1). Nate Don PA-C [facility] ORDERABLES * (ABNORMAL) POCT Glucose, Fingerstick (11/04/2024 8:52 PM EST) POC Glucose 258(H) 65 - 99 mg/dL 11/04/2024 9:36 PM EST Blood specimen / Unknown 11/04/2024 8:52 PM EST 11/04/2024 9:36 PM EST Dallas Camejo MD POINT OF CARE TEST O JOSEPH Performing Organization Address City/State/[facility] Co de Phone Number HOSPITAL LAB [...] 4.0 - 11.0 Thou/uL 11/04/2024 11:[address] [facility] Platelet Count 326 150 - 450 Thou/uL 11/04/2024 11:[address] [facility] Hemoglobin 8.7(L) 13.0 - 17.7 g/dL 11/04/2024 11:[address] [facility] Hematocrit 28.0(L) 39.0 - 54.0 % 11/04/2024 11:[address] [facility] Red Blood Cell Count 3.05(L) 4.50 - 6.20 Mil/uL 11/04/2024 11:[address] [facility] MCV 92 80 - 100 fL 11/04/2024 11:[address] [facility] MCH 28.5 27.0 - 31.0 pg 11/04/2024 11:[address] [facility] MCHC 31.1 30.0 - 36.0 g/dL 11/04/2024 11:[address] [facility] RDW 16.6(H) 11.5 - 14.5 % 11/04/2024 11:[address] [facility] MPV 9.4 7.5 - 12.5 fL 11/04/2024 11:[address] [facility] Blood Blood specimen / Unknown 11/04/2024 11:19 AM EST 11/04/2024 11:28 AM EST Renea PATTON LAB BLOOD ORDERABLES Performing Organization Address City/[facility]/[place] [address], [address] [address] * (ABNORMAL) BLOOD CULTURE Peripheral (11/04/2024 11:03 AM EST) Gram stain suggestive of Gram positive cocci in clusters 11/07/2024 10:29 AM EST [facility] Culture Methicillin Resistant Staph aureus (MRSA) Aerobic bottle positive. Susceptibility of the same isolate identification, from the same apparent body site is only performed once per 5 calendar days. ?See susceptibilities reported on specimen collected 11/02/2024 (A) 11/08/2024 12:21 PM EST [facility] Microbiology Peripheral blood specimen / Unknown 11/04/2024 11:03 AM EST 11/04/2024 12:35 PM EST Chris Taylor MD LAB AMB MICRO ORDERA BLES Performing Organization Address [facility] Co de Phone Number [facility] [address] [place] [place] [address], * (ABNORMAL) BLOOD CULTURE Peripheral (11/04/2024 11:03 AM EST) Gram stain suggestive of Gram positive cocci in clusters 11/07/2024 1:43 PM EST [facility] Culture Methicillin Resistant Staph aureus (MRSA) Aerobic bottle positive. Susceptibility of the same isolate identification, from the same apparent body site is only performed once per 5 calendar days. ?See susceptibilities reported on specimen collected 11/02/2024 (A) 11/08/2024 12:17 PM [facility] Microbiology Peripheral blood specimen / Unknown 11/04/2024 11:03 AM EST 11/04/2024 12:35 PM EST Chris Taylor MD LAB AMB MICRO ORDERA BLES Performing Organization Address [facility] Co de Phone Number [facility] [address] [place] [address], * (ABNORMAL) Basic Metabolic Panel (Routine) (11/04/2024 10:50 AM EST) Glucose 184(H) 65 - 99 mg/dL 11/04/2024 11:[address] [facility] Comment:Fasting: <100 mg/dL, Non-Fasting: <200 mg/dL (ADA 2004) Blood Urea Nitrogen (BUN) 48(H) 8 - 21 mg/dL 11/04/2024 11:[address] [facility] Creatinine 2.0(H) 0.5 - 1.3 mg/dL 11/04/2024 11:[address] [facility] eGFR 37(L) >59 11/04/2024 11:[address] [facility] Comment:CKD-EPI (2020) in mL /min/1.73 sq meters. Sodium 130(L) 136 - 145 mmol/L 11/04/2024 11:[address] [facility] Potassium 3.7 3.4 - 5.3 mmol/L 11/04/2024 11:[address] [facility] Chloride 95(L) 98 - 107 mmol/L 11/04/2024 11:[address] [facility] CO2 21(L) 22 - 33 mmol/L 11/04/2024 11:[address] [facility] Anion Gap 14 7 - 17 11/04/2024 11:[address] [facility] Calcium 7.7(L) 8.7 - 10.5 mg/dL 11/04/2024 11:[address] [facility] BUN/Creatinine Ratio 24 10.0 - 25.0 Ratio 11/04/2024 11:[address] [facility] Blood (Plasma/Serum) 11/04/2024 10:50 AM EST 11/04/2024 11:28 AM [facility] Juaquin Kern MD LAB BLOOD ORDERABL [place] [address] [address], [address] [address] * ECHOCARDIOGRAM COMPREHENSIVE (11/04/2024 9:05 AM EST) [...] ?Compared to previous outside study report from [facility] on 08/05/2024, Mitral and tricuspid regurgitation were [...] Compared to previous outside study report from [facility] on 08/05/2024, Mitral and tricuspid regurgitation were not previously reported. Ena Mtz MD CV ECHO ORDERABL ES * (ABNORMAL) POCT Glucose, Fingerstick (11/04/2024 7:26 AM EST) POC Glucose 141(H) 65 - 99 mg/dL 11/04/2024 7:30 AM EST Blood specimen / Unknown 11/04/2024 7:26 AM EST 11/04/2024 7:30 AM EST Dallas Camejo MD POINT OF CARE TEST O JOSEPH Performing Organization Address [facility] Phone Number HOSPITAL LAB See Below * Prepare RBC's:Prepare [...] BANK PRODUCT O RDERALUCILLE Performing Organization Address [facility] Phone Number HOSPITAL LAB See Below * (ABNORMAL) POCT Glucose, Fingerstick (11/03/2024 9:25 PM EST) POC Glucose 229(H) 65 - 99 mg/dL 11/03/2024 9:26 PM EST Blood specimen / Unknown 11/03/2024 9:25 PM EST 11/03/2024 9:26 PM EST Dallas Camejo MD POINT OF CARE TEST O JOSEPH Performing Organization Address [facility] Co nm Phone Number HOSPITAL LAB See Below * (ABNORMAL) POCT Glucose, Fingerstick (11/03/2024 5:50 PM EST) POC Glucose 158(H) 65 - 99 mg/dL 11/03/2024 6:19 PM EST Blood specimen / Unknown 11/03/2024 5:50 PM EST 11/03/2024 6:19 PM EST Dallas Camejo MD POINT OF CARE TEST O RDERALUCILLE Performing Organization Address City/[facility]/ZIP Co de Phone Number [facility] See Below * (ABNORMAL) POCT Glucose, Fingerstick (11/03/2024 11:43 AM EST) POC Glucose 153(H) 65 - 99 mg/dL 11/03/2024 11:48 AM EST Blood specimen / Unknown 11/03/2024 11:43 AM EST 11/03/2024 11:48 AM EST Dallas Camejo MD POINT OF CARE TEST O RDERALUCILLE Performing Organization Address [facility]/ZIP Co de Phone Number [facility] See Below * Creatine Kinase (CK) (11/03/2024 10:52 AM EST) Pathologist [facility] Creatine Kinase (CK) 61 24 - 204 U/L 11/03/2024 11:37 AM EST [facility] Blood (Plasma/Serum) 11/03/2024 10:52 AM EST 11/03/2024 11:10 AM EST Ena Mtz MD LAB BLOOD ORDERA BLES Performing Organization Address [facility] [place] [address], [place] [address] * (ABNORMAL) POCT Glucose, Fingerstick (11/03/2024 7:56 AM EST) POC Glucose 165(H) 65 - 99 mg/dL 11/03/2024 8:04 AM EST Blood specimen / Unknown 11/03/2024 7:56 AM EST 11/03/2024 8:04 AM EST Dallas Camejo MD POINT OF CARE TEST O RDERALUCILLE Performing Organization Address City/[facility]/ZIP Co de Phone Number [facility] See Below * MRSA PCR Screen, Qualitative (11/03/2024 3:24 AM EST) MRSA Result Not Detected Not Detected 7:00 AM EST [facility] Comment:Performed by the Xpe rt MRSA NxG Assay X-Specimen 12 Specimen from nose / Unknown 11/03/2024 3:24 AM EST 11/03/2024 5:23 AM EST Kenzie PATTON MICROBIOLOGY - GENE RAL ORDERABLES Performing Organization Address [facility] [place] [address], [place] [address] * ECG 12 lead (STAT) (11/02/2024 9:34 PM EST) Ventricular rate 70 BPM EKG [facility] Atrial rate 70 BPM EKG [facility] P-R interval 272 ms EKG [facility] QRS duration 202 ms EKG [facility] Q-T interval 510 ms EKG [facility] QTC calculation (Bazett) 551 ms EKG [facility] P axis 81 degrees EKG [facility] R axis 29 degrees EKG [facility] T axis 132 degrees [facility] 11/02/2024 9:34 PM EST Narrative EKG [facility] - 11/03/2024 4:30 PM EST Atrial-sensed ventricular-paced rhythm with prolonged AV conduction Abnormal ECG When compared with ECG of 15-Sep-2024 06:25, Vent. rate has increased by ?? 9 bpm Confirmed by MD Hagan David ([id number]) on 11/03/2024 4:30:25 PM Procedure Note Deep Hagan MD - 11/03/2024 Atrial-sensed ventricular-paced rhythm with prolonged AV conduction Abnormal ECG When compared with ECG of 15-Sep-2024 06:25, Vent. rate has increased by 9 bpm Confirmed by MD Hagan David ([id number]) on 11/03/2024 4:30:25 PM Kenzie PATTON ECG ORDERABLES Performing Organization Address [facility] Co de Phone Number [facility] * (ABNORMAL) POCT Glucose, Fingerstick (11/02/2024 9:19 PM EST) POC Glucose 163(H) 65 - 99 mg/dL 11/02/2024 9:20 PM EST Blood specimen / Unknown 11/02/2024 9:19 PM EST 11/02/2024 9:20 PM EST Dallas Camejo MD POINT OF CARE TEST O RDERABLES HOSPITAL LAB See Below * (ABNORMAL) Blood Culture ID PCR Panel (11/02/2024 8:00 PM EST) Pathologist [facility] BC ID PCR Result Summary Enterococcus faecalis Vancomycin resistance gene detected by molecular method. Please refer to detailed susceptibility results when available and suggest consultation with Infectious Diseases for management. 11/03/2024 6:[address] [facility] BC ID PCR Result Summary Enterococcus faecium Vancomycin resistance gene detected by molecular method. Please refer to detailed susceptibility results when available and suggest consultation with Infectious Diseases for management. 11/03/2024 6:[address] [facility] BC ID PCR Result Summary Methicillin Resistant Staph aureus (MRSA) 11/03/2024 6:06 PM [facility] Methicillin resistance gene mecA/C Detected(A) 11/03/2024 6:[address] [facility] Vancomycin resistance genes Eugenia/B Detected(A) 11/03/2024 6:[address] [facility] Enterococcus faecalis Detected(A) 11/03/2024 6:[address] [facility] Enterococcus faecium Detected(A) 11/03/2024 6:[address] [facility] Listeria monocytogenes Not Detected 11/03/2024 6:[address] [facility] Staphylococcus Detected(A) 6:[address] [facility] Staphylococcus aureus Detected(A) 11/03/2024 6:[address] [facility] Staphylococcus epidermidis Not Detected 11/03/2024 6:[address] [facility] Staphylococcus lugdunensis Not Detected 11/03/2024 6:[address] [facility] Streptococcus Not Detected 6:06 PM [facility] [...] Fernanda krusei Not Detected 11/03/19 6:06 PM [facility] Fernanda parapsilosis Not Detected 11/03/2024 6:06 PM EST [facility] Cryptococcus neoformans/gattii Not Detected 11/03/2024 6:[address] [facility] PCR ID Comment Antimicrobial resistance can occur via multiple mechanisms. A Not Detected result for antimicrobial resistance gene(s) does not indicate antimicrobial susceptibility. Subculturing is required for species identification and susceptibility testing of isolates. 11/03/2024 6:[address] [facility] 11/02/2024 8:00 PM EST 11/02/2024 8:29 PM EST Kenzie PATTON MICROBIOLOGY - GENE RAL ORDERABLES [facility] [address] * (ABNORMAL) Erythrocyte Sedimentation Rate (ESR) (11/02/2024 8:00 PM EST) Erythrocyte Sediment Rate (ESR) 79(H) <20 MM/HR 11/02/2024 8:[address] [facility] Blood specimen / Unknown 11/02/2024 8:00 PM EST 11/02/2024 8:22 PM EST Kenzie PATTON LAB BLOOD ORDERABLE S Performing Organization Address City/[facility]/[place] [address], [place] [address] * (ABNORMAL) C-REACTIVE PROTEIN (11/02/2024 8:00 PM EST) C-Reactive Protein 29.62(H) 0 - 0.49 mg/dL 11/03/2024 12:[address] [facility] Plasma/Serum 11/02/2024 8:00 PM EST 11/02/2024 8:22 PM EST Kenzie PATTON [place] [address], [address] [address] * (ABNORMAL) BLOOD CULTURE Peripheral (11/02/2024 8:00 PM EST) Gram stain suggestive of Gram positive cocci 11/03/2024 3:[address] [facility] Culture Methicillin Resistant Staph aureus (MRSA) Aerobic and Anaerobic bottle positive. Complete identification and susceptibility of the same isolate, if appropriate, performed on only one blood culture collection per day. (A) 11/06/2024 12:[address] [facility] Culture Enterococcus faecalis Aerobic and Anaerobic bottle positive. Complete identification and susceptibility of the same isolate, if appropriate, performed on only one blood culture collection per day. (A) 11/06/2024 12:[address] [facility] Microbiology Peripheral blood specimen / Unknown 11/02/2024 8:00 PM EST 11/02/2024 8:28 PM EST Kenzie PATTON LAB AMB MICRO ORDER JOSE [facility] [address] [place] [address], * (ABNORMAL) BLOOD CULTURE Peripheral (11/02/2024 8:00 PM EST) Gram stain suggestive of Gram positive cocci 11/03/2024 3:[address] [facility] Culture Methicillin Resistant Staph aureus (MRSA) Aerobic and Anaerobic bottle positive. (A) 11/05/2024 1:[address] [facility] Culture Enterococcus faecalis Aerobic and Anaerobic bottle positive. (A) 11/05/2024 1:[address] [facility] Culture Enterococcus faecium Anaerobic bottle positive. (A) 11/05/2024 1:[address] [facility] Microbiology Peripheral blood specimen / Unknown 11/02/2024 8:00 PM EST 11/02/2024 8:29 PM EST Narrative Organism Antibiotic Method Susceptibility Methicillin Resistant Staph aureus (MRSA) Cefazolin (REPORT) BACTERIAL APTTI AND INTERPRETATION (MCG/ML) 16: Resistant Methicillin Resistant [...] Kenzie PATTON LAB AMB MICRO ORDER JOSE Performing Organization Address City/[facility]/ZIP Co de Phone Number [facility] [address] * Vitamin D, 25-Hydroxy (11/02/2024 8:00 PM EST) Vitamin D, 25-Hydroxy 50 30 - 100 ng/mL 11/02/2024 9:10 PM EST [facility] Blood (Plasma/Serum) 11/02/2024 8:00 PM EST 11/02/2024 8:23 PM EST Kenzie PATTON LAB BLOOD ORDERABLE S Performing Organization Address [facility] [place] [address], [place] [address] * (ABNORMAL) TRANSFERRIN (11/02/2024 8:00 PM EST) Transferrin 178(L) 200 - 360 mg/dL 11/03/2024 12:04 AM EST [facility] Blood (Plasma/Serum) 11/02/2024 8:00 PM EST 11/02/2024 8:22 PM EST Kenzie PATTON LAB BLOOD ORDERABLE S Performing Organization Address [facility] [place] [address], [place] [address] * (ABNORMAL) Prealbumin (11/02/2024 8:00 PM EST) Prealbumin 7(L) 20 - 40 mg/dL 11/03/2024 12:[address] [facility] Blood (Plasma/Serum) 11/02/2024 8:00 PM EST 11/02/2024 8:22 PM EST Kenzie Vazquez [facility] [place] [address], [place] [address] * (ABNORMAL) Albumin (11/02/2024 8:00 PM EST) Albumin 3.2(L) 3.4 - 4.8 g/dL 11/03/2024 12:[address] [facility] Blood (Plasma/Serum) 11/02/2024 8:00 PM EST 11/02/2024 8:22 PM EST Kenzie Chandlersadeshyla [facility] LAB BLOOD ORDERABLE S Performing Organization Address City/[facility]/[place] [address], [place] [address] * (ABNORMAL) Protime-INR (Routine) (11/02/2024 8:00 PM EST) Pathologist [facility] Anticoagulant APIXABAN (ELIQUIS) 11/02/2024 6:26 PM EST Prothrombin Time (PT) 14.7(H) 10.0 - 13.5 seconds 11/02/2024 9:[address] [facility] INR 1.3 11/02/2024 9:[address] [facility] Comment:INR Therapeutic Rang es: Standard dose anticoagulant 2.0 to 3.0, High dose anticoagulant 2.5-3.5. Blood Plasma specimen / Unknown 11/02/2024 8:00 PM EST 11/02/2024 8:22 PM EST Kenzie Chandlersadeshyla [facility] [place] [address], [address] [address] * (ABNORMAL) Basic Metabolic Panel (STAT) (11/02/2024 8:00 PM EST) Glucose 171(H) 65 - 99 mg/dL 11/03/2024 12:[address] [facility] Comment:Fasting: <100 mg/dL, Non-Fasting: <200 mg/dL (ADA 2004) Blood Urea Nitrogen (BUN) 41(H) 8 - 21 mg/dL 11/03/2024 12:[address] [facility] Creatinine 2.0(H) 0.5 - 1.3 mg/dL 11/03/2024 12:[address] [facility] eGFR 37(L) >59 11/03/2024 12:[address] [facility] Comment:CKD-EPI (2020) in mL /min/1.73 sq meters. Sodium 130(L) 136 - 145 mmol/L 11/03/2024 12:[address] [facility] Potassium 4.0 3.4 - 5.3 mmol/L 11/03/2024 12:[address] [facility] Chloride 92(L) 98 - 107 mmol/L 11/03/2024 12:[address] [facility] CO2 19(L) 22 - 33 mmol/L 11/03/2024 12:[address] [facility] Anion Gap 19(H) 7 - 17 11/03/2024 12:[address] [facility] Calcium 8.5(L) 8.7 - 10.5 mg/dL 11/03/2024 12:[address] [facility] BUN/Creatinine Ratio 21 10.0 - 25.0 Ratio 11/03/2024 12:[address] [facility] Blood (Plasma/Serum) 11/02/2024 8:00 PM EST 11/02/2024 8:22 PM EST Kenzie PATTON LAB BLOOD ORDERABLE S [address] [address], [address] [address] * (ABNORMAL) Complete Blood Count WITH Differential - STAT (11/02/2024 8:00 PM [facility]) White Blood Cell Count 14.3(H) 4.0 - 11.0 Thou/uL 11/02/2024 8:[address] [facility] Platelet Count 395 150 - 450 Thou/uL 11/02/2024 8:[address] [facility] Hemoglobin 9.3(L) 13.0 - 17.7 g/dL 11/02/2024 8:[address] [facility] Hematocrit 29.3(L) 39.0 - 54.0 % 11/02/2024 8:[address] [facility] Red Blood Cell Count 3.20(L) 4.50 - 6.20 Mil/uL 11/02/2024 8:[address] [facility] MCV 92 80 - 100 fL 11/02/2024 8:[address] [facility] MCH 29.1 27.0 - 31.0 pg 11/02/2024 8:[address] [facility] MCHC 31.7 30.0 - 36.0 g/dL 11/02/2024 8:[address] [facility] RDW 16.1(H) 11.5 - 14.5 % 11/02/2024 8:[address] [facility] MPV 9.5 7.5 - 12.5 fL 11/02/2024 8:[address] [facility] Neutrophils Auto 81.9 % 11/02/19 8:[address] [facility] Immature Granulocytes 0.6 % 11/02/2024 8:[address] [facility] Lymphocytes Auto 4.8 % 11/02/19 8:[address] [facility] Monocytes Auto 12.2 % 11/02/2024 8:[address] [facility] Eosinophils Auto 0.1 % 11/02/19 8:[address] [facility] Basophils Auto 0.4 % 11/02/2024 8:[address] [facility] Abs Neutrophils Auto 11.67(H) 2.00 - 7.50 Thou/uL 11/02/2024 8:[address] [facility] Abs Immature Granulocytes 0.08 0.00 - 0.10 Thou/uL 11/02/2024 8:[address] [facility] Abs Lymphocytes Auto 0.69(L) 1.50 - 4.50 Thou/uL 11/02/2024 8:[address] [facility] Abs Monocytes Auto 1.74(H) 0.20 - 1.50 Thou/uL 11/02/2024 8:[address] [facility] Abs Eosinophils Auto 0.02 0.00 - 0.70 Thou/uL 11/02/2024 8:[address] [facility] Abs Basophils Auto 0.05 0.00 - 0.20 Thou/uL 11/02/2024 8:[address] [facility] Blood Blood specimen / Unknown 11/02/2024 8:00 PM EST 11/02/2024 8:22 PM EST Kenzie PATTON LAB BLOOD ORDERABLE S Performing Organization Address City/State/[facility] [place] [address], [place] [address] * Type and Screen (11/02/2024 7:56 PM EST) ABO/Rh A POSITIVE 11/02/2024 10:[address] [facility] Antibody Screen NEGATIVE 11/02/2024 10:[address] [facility] Specimen Expiration 11/05/2024 11/02/2024 10:[address] [facility] Unit Number [id number] 11/04/2024 6:[address] [facility] Blood Component Type LEUKOREDUCED RED CELLS 11/04/2024 6:[address] [facility] Unit Division 00 11/04/2024 6:[address] [facility] Unit Status REL FROM ALLOC 9:[address] [facility] Transfusion Status OK TO TRANSFUSE 11/04/2024 6:[address] [facility] Crossmatch Result Electronically Compatible 11/04/2024 6:[address] [facility] Unit Number [id number] 11/04/2024 6:[address] [facility] Blood Component Type LEUKOREDUCED RED CELLS 11/04/2024 6:[address] [facility] Unit Division 00 11/04/2024 6:[address] [facility] Unit Status REL FROM ALLOC 9:33 PM EST [facility] Transfusion Status OK TO TRANSFUSE 11/04/2024 6:58 AM EST [facility] Crossmatch Result Electronically Compatible 11/04/2024 6:58 AM EST [facility] Blood Blood specimen / Unknown 11/02/2024 7:56 PM EST 11/02/2024 8:51 PM EST Comment:Blood Kenzie PATTON BLOOD BANK TEST ORD ERABLES HOSPITAL LAB See Below [facility] [address] [place] [address] * (ABNORMAL) POCT Glucose, Fingerstick (11/02/2024 6:48 [...] Acute bacterial conjunctivitis of right eye Bacteremia Acute osteomyelitis of left calcaneus (HCC) Endocarditis Endocarditis, valve unspecified, unspecified cause documented [...] Fri11/18/24 at 1130, All antimicrobials used at [facility] require an indication. Please complete [...] 9:31 AM EST 5,000 Units Abdominal Tissue insulin glargine (LANtus/SEMGLEE) 100 units/mL injection 10 [...] Given 11/07/2024 10:25 AM EST 3 mL melatonin tablet 3 mg 3 mg, Oral, Nightly PRN, insomnia, Starting on Fri11/02/24 at 1828 Given 11/19/2024 10:22 PM EST 3 mg methocarbamol (ROBAXIN) tablet 1,000 mg 1,000 mg, Oral, 4 times daily, First dose (after last modification) on Fri11/06/24 at 1800 Given 11/25/2024 12:33 PM EST 1,000 mg metoPROLOL TARTRATE (LOPRESSOR) tablet 50 mg 50 mg, Oral, 2 times daily, First dose on Fri11/02/24 at 2100, Hold for HR less than 45 bpm and/or SBP less than 90 mmHg. Notify provider if a dose is held. Given 11/25/2024 9:35 AM EST 50 mg multivitamin with minerals tablet 1 tablet [...] 9:36 AM EST 2 tablets sodium chloride irrigation (NS) 0.9 % irrigation solution BOTTLE Once PRN, Starting on Fri11/05/24 at 1425, Intra-op Given 11/05/2024 2:25 PM EST 1,000 mL Left Leg thiamine mononitrate (VITAMIN B-1) tablet 200 mg [...] Fri11/18/24 at 1130, All antimicrobials used at [facility] require an indication. Please complete [...] Iqbal RN) 0815 (Given - Provider: Mitesh Caldwell, JOSUE) 0935 (Given - Provider: Mitesh Caldwell RN) [...] Nelson Iqbal RN)1728 (Given - Provider: Nelson Iqbal, JOSUE) 0257 (Given - Provider: Marisel Wray RN)0816 (Given - Provider: Mitesh Caldwell RN)1753 (Given [...] Iqbal RN) 0816 (Given - Provider: Mitesh Caldwell, JOSUE) 0933 (Given - Provider: Mitesh Caldwell RN) [...] Nelson Iqbal RN)1245 (Given - Provider: Nelson Iqbal RN)1729 (Given - Provider: Nelson Iqbal, JOSUE) 0817 (Given - Provider: Mitesh Caldwell RN)1228 (Given - Provider: Page Montemayor RN)1753 (Given - Provider: Pgae Montemayor RN) 0905 (Given - Provider: Mitesh Caldwell RN)1233 (Given - Provider: Mitesh Caldwell RN)1730 (Not Given - Provider: Mitesh Caldwell RN - Reason: Patient/family refused) methocarbamol (ROBAXIN) tablet 1,000 mg 1,000 mg, Oral, 4 times daily, First dose (after last modification) on Fri11/06/24 at 1800 0853 (Given - Provider: Nelson Iqbal RN)1406 (Given - Provider: Nelson Iqbal RN)1728 (Given - Provider: Nelson Iqbal, JOSUE)2108 (Given - Provider: Marisel Wray RN) 0815 (Given - Provider: Mitesh Caldwell RN)1351 (Given - Provider: Page Montemayor RN)1900 (Already Given - See Override Pulls - Provider: Marisel Wray RN)210 (Given - Provider: Agnieszka Torrez RN) 0934 [...] RN)0930 (Patch Applied - Provider: Mitesh Caldwell RN)195 (Due: Patch Removed - Provider: Automatic Discharge [...] Iqbal RN) 0816 (Given - Provider: Mitesh Calwdell RN) 0932 (Given - Provider: Mitesh Caldwell [...] 2100 0853 (Given - Provider: Nelson Iqbal RN)211 (Given - Provider: Marisel Wray RN) 0814 (Given - Provider: Mitesh Caldwell, JOSUE)2108 (Given - Provider: Agnieszka Torrez RN) 0936 [...] documented as of this encounter Care Teams Phytopathology Teacher Relationship Specialty Start Date End Date Lee Fabian MD [address] [place] [address] PCP - General Internal Medicine 09/02/24 Vitaliy Fields MD [address] [address] Cardiovascular Disease 09/02/24 Dallas Camejo MD [address] [place] [address] Surgery, Orthopedic 09/02/24 Rolando Lopez MD [address] Transplant - Ph [address] [place] [address] Physician Nephrology 09/02/24 documented as of this encounter
--- OUTSIDE RECORDS SUMMARY | 2024-12-02 10:40 | XMS_ITS | Encounter Summary ---
Author Organization Formerly [facility] Address [address] [place] [address] Care Team Providers Care [employer] Name Role Phone Lee Fabian MD Primary Care Provider Vitaliy Fields MD Unavailable Dallas Camejo MD Unavailable Rolando Lopez MD Unavailable Cesar Fair MD Unavailable Reason for Visit * Auth/Cert Specialty Diagnoses / Procedures Referred By Contac t Referred To Contact Diagnoses left ankle infection Procedures N/A Referral ID Status Reason Start Date Expiration Date Visits Re quested Visits Authorized [id number] 1 1 Encounter Details Date Type Department Care Team (Latest Contact Info) Description 11/11/2024 2:09 PM EST Anesthesia Event [facility] Heart & Vascular [place] [facility] - Echocardiography Laboratory [address] [place] [phone] Hong Nance MD [address] [place] [address] Anesthesia Record Procedure Summary Procedure Name Responsible Anesthesiologist Anesthesia Start Time Anesthesia Stop Time ECHOCARDIOGRAM TRANSESOPHAGEAL Hong Nance MD 11/11/24 1409 11/11/24 1520 Events Date Time Event Comment 11/11/2024 1402 AN Equip Check 1409 An Start 1409 An Start Data 1411 1445 An Induction 1447 Anesthesia Ready 1518 AN Stop Data 1520 Handoff to Receiving I compl eted my handoff to the receiving clinician during which we: 1. Identified the patient 2. Identified the responsible provider 3. Reviewed pertinent medical history 4. Discussed the surgical or procedural course 5. Reviewed intraoperative management and issues during anesthesia 6. Set expectations for the post-procedure period 7. Allowed opportunity for questions and acknowledgement of understanding. 1520 An Stop Meds Name Total propofol 10 mg/mL BOLUS 220 mg calcium chloride 1 g/10 mL injection 1 g VASOpressin (PITRESSIN) injection 20 uni ts/mL 10 Units bumetanide (BUMEX) IV infusion 12.5 mg i n 50 mL 1.05 mg DAPTOmycin (CUBICIN) 975 mg in sodium ch loride (NS) 0.9 % 50 mL IVPB 0 mg LR 300 mL * Agents Name O2 N2O Air * Blood No blood administrations on file. Lines, Drains, and Airways Type Details Placement Removal Brace/Orthotic/Orthos is 09/10/24; 1301; left; ankle/foot; splint 09/10/24 1301 by Mary Emery RN Wound (Adult, Obstetrics, Pediatric) 11/02/24; 1900; Right; foot, plantar 11/02/24 1900 by Belkys Diaz RN Incision (Adult, Obstetrics, Pediatrics) 11/05/24; 1516; Left; leg; Xeroform, Abd, Stockingnette, Maykel Bandage 11/05/24 1516 by Cynthia Desai RN Brace/Orthotic/Orthos is 11/06/24; 1900; left, lower; leg; brace 11/06/24 1900 by Isabel Hinson RN Wound (Adult, Obstetrics, Pediatric) 09/12/24; 1420; Right; plantar; puncture; pt states stepped on glass; 11/12/24; 1528 09/12/24 1420 by Alaina Charlton RN 11/12/24 1528 by Gilda May RN Incision (Adult, Obstetrics, Pediatrics) 09/15/24; 1153; Right; groin; dermabond; 11/12/24; 1529 09/15/24 1153 by Mikhail House RN 11/12/24 1529 by Gilda May, RN PIV-Single luman 11/08/24; 0029; cephalic vein (lateral side of arm), right; [id number]-irvynv catheter system; 20 gauge (1.25 ); ultrasound guidance; 0; distraction, tolerated well, appears comfortable; 11/12/24; 17411/08/24 002 by Adriane Luna RN 11/12/24 174 by Dorys Jackson RN Central Line - Triple Lumen (Adult) 11/08/24; 1900; internal jugular vein, right; no longer indicated; 11/12/24; 17411/08/24 190 by Krystina Felipe RN 11/12/24 174 by Dorys Jackson RN documented in this encounter Social History Tobacco Use Types Packs/Day Years Used Date Smoking Tobacco: Former Cigarettes 1 29.2 1 977 - 2004 Smokeless Tobacco: Never Alcohol Use Standard Drinks/Week Comments Yes 21 (1 standard drink = 0.6 oz pu re alcohol) [facility] Utilities Answer Date Recorded In the past 12 months has [employer], gas, oil, or water [employer] threatened to shut off services in your [...] any time in the past 12 m onths, were you homeless or living in a long term (including now)? No 11/03/2024 Sex and Gender Information Value Date Recorded Sex Assigned at Male 09/03/2024 12:21 PM EST Gender Identity Male 09/03/2024 12:21 PM EST Sexual Orientation Heterosexual (straight) 09/10 7:58 AM EST documented as of this encounter Last Filed Vital Signs Vital Sign Reading Time Taken Comments Blood Pressure - - Pulse - - Temperature - - Respiratory Rate - - Oxygen Saturation 98% 11/11/2024 3:17 PM EST Inhaled Oxygen Concentration - - Weight - - Height - - Body Mass Index - - documented in this encounter OR Notes * Anesthesia Postprocedure Evaluation - Hong Nance MD - 11/11/2024 3:20 PM EST Department of Anesthesiology Post-Anesthesia Evaluation Patient Name: Luca Crowe : 1960 Admission Date: 11/02/2024 Attending Provider: Shay Martin MD Date of Service: 11/11/2024 Procedure Summary Date: 11/11/24 Room / Location: [facility] Heart & Vascular [place] [facility] - Echocardiography Laboratory Anesthesia Start: 1409 Anesthesia Stop: Procedure: ECHOCARDIOGRAM TRANSESOPHAGEAL Diagnosis: (Other-Comment Required) (Bacteremia and requiring L BKA, Cardiology following.) Scheduled Providers: Hong Nance MD Responsible Provider: Hong Nance MD Anesthesia Type: MAC ASA Status: 4 Anesthesia Type: MAC There were no known notable events for this encounter. Last vitals Vitals Value Taken Time BP Temp Pulse Resp SpO2 98 % 11/11/24 1517 Evaluation Vital signs are in the patient's normal range: Yes Respiratory function stable; airway patent: Yes Cardiovascular function and hydration status are stable: Yes Mental status recovered; patient participates in evaluation: Yes Pain control satisfactory: Yes Nausea and vomiting control is satisfactory: Yes This is an OB patient: No Quality Metrics Hong Nance MD 11/11/2024 3:20 PM * Anesthesia Preprocedure Evaluation - Hong Nance MD - 11/11/2024 2:10 PM EST Department of Anesthesiology Pre-Procedure Evaluation Patient Name: Luca Crowe : 1960 Admission Date: 11/02/2024 Attending Provider: Shay Martin MD Date of Service: 11/11/2024 Scheduled Procedure: Pre-operative Diagnosis: * No pre-op diagnosis entered * Relevant Problems ANESTHESIA (+) MERVIN on CPAP Allergies Allergen Reactions ??? Lisinopril Other (See Comments) Dehydration STOP-Bang score not indicated as patient has known MERVIN diagnosis Patient summary reviewed. Nursing notes reviewed. Pre-procedure vital signs reviewed. NPO status verified. Respiratory Positives: sleep apnea Cardiovascular Positives: CHF dysrhythmias hypertension- valvular problems/murmurs peripheral arterial disease Neuromuscular GI/Hepatic/Renal Endo/MET Positives: diabetes mellitus Hem/Lymph Skel/Skin Psych HEENT Obstetrics Other Syndromes Additional Notes Bacteremia, endicarditis Volme overload Physical Exam Airway Mallampati III normal rate irregular rhythm Pulmonary (+) decreased breath sounds Abdominal Past Medical History: Diagnosis Date ??? A-fib [...] (HCC) Past Surgical History: Procedure Laterality Date ??? AMPUTATION Right 2017 TMA ??? AMPUTATION BELOW KNEE Left 11/05/2024 Procedure: LEFT BELOW KNEE AMPUTATION; Surgeon: Dallas Camejo MD; Location: [facility]; Service: Orthopaedics; Laterality: Left; ??? AORTOGRAM- ABDOMINAL Left 09/15/2024 Procedure: LEFT LOWER EXTREMITY ANGIOGRAM; Surgeon: Delbert Mcintosh MD; Location: [facility]; Service: Peripheral Vascular; Laterality: Left; ??? BARIATRIC SURGERY 2018 ??? CARDIAC ELECTROPHYSIOLOGY STUDY AND ABLATION x5 ??? CARDIAC PACEMAKER PLACEMENT 2015 ??? CARDIAC SURGERY 2020 watchman device ??? CARDIOVERSION 07/2024 ??? CC PERIPHERAL ANGIOGRAPHY Left 07/2024 LE ??? CHANGE DRESSING WOUND VAC Left 09/10/2024 Procedure: APPLICATION OF WOUND VAC; Surgeon: Dallas Camejo MD; Location: [facility]; Service: Orthopaedics; Laterality: Left; ??? FOOT SURGERY Right x5 ??? INCISION AND DRAINAGE FOOT Left ??? OH PROCEDURE MAZE AFIB ??? OSTECTOMY CALCANEOUS Left 09/10/2024 Procedure: ANKLE PARTIAL CALCANECTOMY; Surgeon: Dallas Camejo MD; Location: [facility]; Service: Orthopaedics; Laterality: Left; wOUND PARTIALLY CLOSED SUPERFICIALLY, WOUND VAC PLACED ??? TOTAL KNEE ARTHROPLASTY Left 2016 REVISION SAME YEAR/INFECTION No family history on file. Social History Socioeconomic History ??? Marital status: Single Spouse name: Not on file ??? Number of children: Not on file ??? Years of education: Not on file ??? Highest education level: Not on file Occupational History ??? Not on file Tobacco Use ??? Smoking status: Former Current packs/day: 1.00 Average packs/day: 1 pack/day for 29.1 years (29.1 ttl pk-yrs) Types: Cigarettes Start date: 1976 Quit date: 2003 ??? Smokeless tobacco: Never Substance and Sexual Activity ??? Alcohol use: Yes Alcohol/week: 21.0 standard drinks of alcohol Types: 21 Cans of beer per week ??? Drug use: Never ??? Sexual activity: Not on file Other Topics Concern ??? Not on file Social History Narrative ??? Not on file Social Determinants of Health Financial Resource Strain: Low Risk (09/10/2024) Overall Financial Resource Strain (CARDIA) ??? Difficulty of Paying Living Expenses: Not hard at all Food Insecurity: No Food Insecurity (11/03/2024) Hunger Vital Sign ??? Worried About Running Out of Food in the Last Year: Never true ??? Ran Out of Food in the Last Year: Never true Transportation Needs: No Transportation Needs (11/03/2024) PRAPARE - Transportation ??? Lack of Transportation (Medical): No ??? Lack of Transportation (Non-Medical): No Physical Activity: Not on file Stress: Not on file Social Connections: Not on file Housing Stability: Low Risk (11/03/2024) Housing Stability Vital Sign ??? Unable to Pay for Housing in the Last Year: No ??? Number of Times Moved in the Last Year: 0 ??? Homeless in the Last Year: No Ht Readings from Last 1 Encounters: 11/09/24 1.905 m (6' 3 ) Wt Readings from Last 1 Encounters: 11/02/24 120 kg (264 lb 8 oz) Body mass index is 33.06 kg/m??. White Blood Cell Count Date Value Ref Range Status 11/11/2024 13.2 (H) 4.0 - 11.0 Thou/uL Final Hemoglobin Date Value Ref Range Status 11/11/2024 8.2 (L) 13.0 - 17.7 g/dL Final Hematocrit Date Value Ref Range Status 11/11/2024 26.1 (L) 39.0 - 54.0 % Final Platelet Count Date Value Ref Range Status 11/11/2024 460 (H) 150 - 450 Thou/uL Final Sodium Date Value Ref Range Status 11/11/2024 137 136 - 145 mmol/L Final Potassium Date Value Ref Range Status 11/11/2024 3.8 3.4 - 5.3 mmol/L Final CO2 Date Value Ref Range Status 11/11/2024 27 22 - 33 mmol/L Final Chloride Date Value Ref Range Status 11/11/2024 99 98 - 107 mmol/L Final POC Glucose Date Value Ref Range Status 11/11/2024 139 (H) 65 - 99 mg/dL Final Blood Urea Nitrogen (BUN) Date Value Ref Range Status 11/11/2024 56 (H) 8 - 21 mg/dL Final Creatinine Date Value Ref Range Status 11/11/2024 2.0 (H) 0.5 - 1.3 mg/dL Final Calcium Date Value Ref Range Status 11/11/2024 8.7 8.7 - 10.5 mg/dL Final ABO/Rh Date Value Ref Range Status 11/02/2024 A POSITIVE Final INR Date Value Ref Range Status 11/05/2024 1.3 Final Comment: INR Therapeutic Ranges: Standard dose anticoagulant 2.0 to 3.0, High dose anticoagulant 2.5-3.5. 11/02/2024 1.3 Final Comment: INR Therapeutic Ranges: [...] by 8 bpm Confirmed by MD Claude, [facility] ([id number]) on 11/07/2024 6:25:53 PM NPO Status: Date of Last Liquid Consumption: 11/05/24 Date of Last Solid Consumption: 11/04/24 Time of Last Solid Consumption: 1800 Anesthesia Plan ASA Score: ASA 4 Consent: The anesthetic plan and associated risks was discussed with patient. The use of blood products was discussed with whom consented to blood products. Anesthesia Plan: MAC plastic surgery nurse Note I personally evaluated and examined the patient prior to the intra-operative phase of care. Hong Nance MD documented in this encounter Plan of Treatment Upcoming Encounters Date Type Department Care Team (Late st Contact Info) Description 12/07/2024 1:30 PM EDT Appointment [facility] Heart & Vascular [place] - Electrophysiology [address] [place] [phone] Gretel Hinds, AWNING INSTALLER [address] [address] 12/14/2024 2:00 PM EDT Office Visit [facility] [address] [address] Dallas Camejo MD [address] [place] [address] 12/16/2024 8:30 AM EDT Office Visit [facility] Infectious Disease [address] [place] [phone] Ena Mtz MD [address], [place] [phone] documented as of this encounter Visit Diagnoses Not on filedocumented in this encounter Administered Medications Inactive Administered Medications - up to 1 most recent administrations Medication Order MAR Action Action Date Dose Rate Site lactated ringers (LR) infusion Intravenous, Continuous PRN, Starting on Lennie 11/11/24 at 1445, Anesthesia Intra-op New Bag 11/11/2024 2:45 PM EST calcium chloride 10 % injection Intravenous, As needed, Starting on Lennie 11/11/24 at 1445, Anesthesia Intra-op Given 11/11/2024 2:51 PM EST 0.5 g propofol (diPRIvan) injection Intravenous, As needed, Starting on Lennie 11/11/24 at 1445, Anesthesia Intra-op Given 11/11/2024 3:11 PM EST 30 mg VASOpressin (VASOSTRICT) injection Intravenous, As needed, Starting on Lennie 11/11/24 at 1445, Anesthesia Intra-op Given 11/11/2024 3:11 PM EST 2 Units documented in this encounter 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/10/24 09/16/2024 09/16/2024 11/24/2024 3:08 P M EST documented as of this encounter Care Teams [employer] Relationship Specialty Start Date End Date Lee Fabian MD [address] [place] [phone] PCP - General Internal Medicine 09/02/24 Vitaliy Fields MD [address] [place] [phone] Cardiovascular Disease 09/02/24 Dallas Camejo MD [address] [place] [address] Surgery, Orthopedic 09/02/24 Rolando Lopez MD [address] Transplant - Ph [address] [place] [address] Physician Nephrology 09/02/24 Cesar Fair MD [address] [id number] Surgery, Cardiac 11/08/24 documented as of this encounter
--- OUTSIDE RECORDS SUMMARY | 2024-12-02 10:40 | XMS_ITS | Encounter Summary ---
Author Organization [facility] Address [address] [place] [address] Care Team Providers Care Spring Tier Name Role Phone Lee Fabian MD Primary Care Provider Vitaliy Fields MD Unavailable [phone] Dallas Camejo MD Unavailable [phone] Rolando Lopez MD Unavailable Cesar Fair MD Unavailable Reason for Visit * Auth/Cert Specialty Diagnoses / Procedures Referred By Contac t Referred To Contact Diagnoses left ankle infection Procedures N/A Referral ID Status Reason Start Date Expiration Date Visits Re quested Visits Authorized [id number] 1 1 Encounter Details Date Type Department Care Team (Late st Contact Info) Description 11/17/2024 2:20 PM EST Anesthesia Event [facility] Perioperative Surgical Services [address] [place] [phone] Guido Mlaagon MD [address] [address] Marlin Miner PA-C [address] [facility] [place] [address] Anesthesia Record Procedure Summary Procedure Name Responsible Anesthesiologist Anesthesia Start Time Anesthesia Stop Time Extraction lead(s) laser from dual PM system; 46067 (Left) Guido Person MD 11/17/24 1420 11/17/24 1653 Events Date Time Event Comment 11/17/2024 1356 AN Equip Check 1420 1420 An Start 1430 An Start Data 1430 An Induction 1437 An Intubation 1447 Anesthesia Ready 1635 AN Emergence 1638 An Extubation 1643 AN Stop Data 1653 Handoff to Receiving I compl eted my handoff to the receiving clinician during which we: 1. Identified the patient 2. Identified the responsible provider 3. Reviewed pertinent medical history 4. Discussed the surgical or procedural course 5. Reviewed intraoperative management and issues during anesthesia 6. Set expectations for the post-procedure period 7. Allowed opportunity for questions and acknowledgement of understanding. 1652 An Stop Meds Name Total fentaNYL 50 mcg/mL injection 100 mcg propofol 10 mg/mL BOLUS 170 mg rocuronium 10 mg/mL injection 100 mg lidocaine 2% (PF) injection (vial) 5 mL sugammadex 200 mg/2 mL injection 200 mg DAPTOmycin (CUBICIN) 975 mg in sodium ch loride (NS) 0.9 % 50 mL IVPB 975 mg norepinephrine (LEVOPHED) 8 mg in sodium chloride (NS) 0.9 % 250 mL IV infusion 820 mcg heparin 1000 units/mL injection 3,000 Un its ondansetron (ZOFRAN) injection 4 mg 4 mg LR 800 mL * Agents Name O2 N2O Air Sevoflurane * Blood No blood administrations [...] Bandage 11/05/24 1516 by Cynthia Desai RN Brace/Orthotic/Ortho sis 11/06/24; 1900; left, lower; leg; brace 11/06/24 1900 by Isabel Hinson RN Incision (Adult, Obstetrics, Pediatrics) 11/17/24; 1505; Left; upper; chest; Class 1 Sutgical Incision 11/17/24 1505 by Abena Roper RN PIV-Single luman 11/12/24; 1210; ceph alic vein (lateral side of arm), left; nkwl-rlq-kamtgk catheter system; 22 gauge, 1 in length, 3/4 in length; ultrasound guidance; distraction, tolerated well, appears comfortable; 11/22/24; 1227 11/12/24 1210 by Rosanne Card RN 11/22/24 1227 by Nelson Iqbal RN PIV-Single luman 11/12/24; 1744; medi an vein (underside of arm), right; inue-zgm-gxykhp catheter system; 22 gauge, 1 in length; ultrasound guidance; 0; distraction, tolerated well, appears comfortable; 11/19/24; 205311/12/24 1744 by Dorys Jackson RN 11/19/24 205 by Nelson Iqbal RN Arterial Line (Adult) 11/17/24; 1402 (created via procedure documentation); Right; radial artery; 20 gauge; catheter/device intact, no longer indicated; 11/17/24; 1800 11/17/24 1402 by Marlin Miner PA-C 11/17/24 1800 by Bev Samuels RN Urethral Catheter (Adult) 11/17/24; 1449; need for frequent and accurate urine output measurements; indwelling catheter with core temperature probe; 16 Fr; inserted at this facility; 10 mL balloon inflation volume; none; drainage bag to dependent drainage; urethral catheter removed, tubing intact, per protocol/policy; 11/17/24; 2230 11/17/24 1449 by Abena Roper RN 11/17/24 2230 by Shante Mohamud RN Sheath 11/17/24; 1504; Veno us; Right; Anterior tibial, Femoral; No; Adonis, Corbin; Injectable; Chlorhexidine ; Yes; 11/17/24; 1625; Per protocol; Manually applied; No complications 11/17/24 1504 by Abena Roper RN 11/17/24 1625 by Abena Roper RN Sheath 11/17/24; 1509; Veno us; Left; Anterior tibial, Femoral; No; Adonis, Corbin; Injectable; Chlorhexidine ; Yes; 11/17/24; 1625; Per protocol; Manually applied; No complications 11/17/24 1509 by Abena Roper RN 11/17/24 1625 by Abena Roper RN documented in this encounter Social History Tobacco Use Types Packs/Day Years Used Date Smoking Tobacco: Former Cigarettes 1 29.2 1 977 - 2004 Smokeless Tobacco: Never Alcohol Use Standard Drinks/Week Comments Yes 21 (1 standard drink = 0.6 oz pu re alcohol) [facility] Utilities Answer Date Recorded In the past 12 months has th e [employer], gas, oil, or water [employer] threatened to shut off services in your [...] any time in the past [address] [facility], were you homeless or living in a halfway (including now)? No 11/03/2024 Sex and Gender Information Value Date Recorded Sex Assigned at Male 09/03/2024 12:21 PM EST Gender Identity Male 09/03/2024 12:21 PM EST Sexual Orientation Heterosexual (straight) 09/10 7:58 AM EST documented as of this encounter Last Filed Vital Signs Vital Sign Reading Time Taken Comments Blood Pressure - - Pulse - - Temperature - - Respiratory Rate 2 11/17/2024 4:52 PM EST Oxygen Saturation 95% 11/17/2024 4:42 PM EST Inhaled Oxygen Concentration - - Weight - - Height - - Body Mass Index - - documented in this encounter OR Notes * Anesthesia Postprocedure Evaluation - Guido Person MD - 11/18/2024 9:19 AM EST Department of Anesthesiology Post-Anesthesia Evaluation Patient Name: Luca Crowe : 1960 Admission Date: 11/02/2024 Attending Provider: Lela Amor MD Date of Service: 11/18/2024 Procedure Summary Date: 11/17/24 Room / Location: [address] Main OR Anesthesia Start: 1420 Anesthesia Stop: 1653 Procedures: Extraction lead(s) laser from dual PM system; 53995 (Left) Micra Leadless Pacemaker Insert/Replacement; 78119 Diagnosis: Pacemaker infection, subsequent encounter (Pacemaker infection, subsequent encounter [T82.7XXD]) Surgeons: Rui Pabon MD Responsible Provider: Guido Person MD Anesthesia Type: general ASA Status: 4 Anesthesia Type: general There were no known notable events for this encounter. Last vitals Vitals Value Taken Time BP 108/57 11/17/24 1816 Temp 35.6 ??C (96 ??F) 11/17/24 1648 Pulse 52 11/17/24 1822 Resp 21 11/17/24 1822 SpO2 93 % 11/17/24 1822 Vitals shown include unfiled device data. Evaluation Vital signs are in the patient's normal range: Yes Respiratory function stable; airway patent: Yes Cardiovascular function and hydration status are stable: Yes Mental status recovered; patient participates in evaluation: Yes Pain control satisfactory: Yes Nausea and vomiting control is satisfactory: Yes This is an OB patient: No Quality Metrics -Obstructive sleep apnea risk education given perioperatively -Two or more strategies used to mitigate risk of obstructive sleep apnea -Multimodal analgesia pain management approach -Opioid medication given during intra or post-procedure care Guido Person MD 11/18/2024 9:19 AM * Anesthesia Procedure Notes - Marlin Miner PA-C - 11/17/2024 2:01 PM EST Associated Order(s): Arterial Line Anesthesia Procedure Note - Arterial Line Insertion- R radial Patient Name: Luca Crowe : 1960 Patient location: pre-op Indications: hemodynamic monitoring Procedure diagnosis: At risk for hemodynamic instability Procedure Start Time: 11/17/2024 1:45 PM Procedure End Time: 11/17/2024 1:50 PM Marlin Miner PA-C Procedure Preparation Skin prep: 2% chlorhexidine - completely dried prior to procedure Hand hygeine performed prior to needle/catheter insertion Sterile barriers in place: cap, gloves, large sterile sheet, gown and mask Procedure Details Moshe's test normal? not performed Needle: 20 g Seldinger technique used Number of attempts: 1 Post Procedure Post-procedure: stablization device applied * Anesthesia Preprocedure Evaluation - Guido Person MD - 11/16/2024 10:33 AM EST Department of Anesthesiology Pre-Procedure Evaluation Patient Name: Luca Crowe : 1960 Admission Date: 11/02/2024 Attending Provider: Maddison Villalpando MD Date of Service: 11/16/2024 Scheduled Procedure: Extraction lead(s) laser from dual PM system; 71084, Left Micra Leadless Pacemaker Insert/Replacement; 15261, N/A Pre-operative Diagnosis: Pacemaker infection, subsequent encounter [T82.7XXD] Relevant Problems ANESTHESIA (+) MERVIN on CPAP Allergies Allergen Reactions Lisinopril Other (See Comments) Dehydration STOP-Bang score not indicated as patient has known MERVIN diagnosis Patient summary reviewed. Nursing notes reviewed. ECG reviewed. Pre-procedure vital signs reviewed. NPO status verified. 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 There is a small mobile echodensity posterior to the mitral valve annulus, adjacent to the watchman device (clip 62, 64). This could be a possible vegetation versus benign fibrous strand however in the setting of bacteremia vegetation cannot be excluded. ?? Left ventricular systolic function is mildly decreased with an estimated ejection fraction of 40-44%. ?? Right ventricular systolic function is mildly reduced. ?? There is a patent foramen ovale with predominant left to right shunting indicated by color Doppler. ?? There is mild apical tethering of the mitral valve leaflets.The mitral leaflets are mildly thickened. There is moderate functional mitral regurgitation with a centrally directed jet. There is no mitral valve stenosis. ?? The tricuspid valve annulus is mildly dilated. There is moderate to severe tricuspid regurgitation. ?? Compared to previous study on 11/04/2024, Device, pacemaker wire and valvular structures are better visualized. A small focal echodensity is seen posterior to mitral valve annulus andadjacent to watchman device. Neuromuscular Positives: neuromuscular disease (sciatica): Additional Findings: Intermittent jerking/tremor like movements of both hands: MRI of the brain without any evidence of septic emboli GI/Hepatic/Renal Positives: GERD well controlled PUD chronic renal disease (stage III) CRI weight gain Obesity CRI Endo/MET Positives: diabetes mellitus (A1C 8.7 (09/03/24)) type 2 poorly controlled Hem/Lymph Positives: anemia Skel/Skin Positives: osteoarthritis osteomyelitis Additional Findings: Left calcaneal osteomyelitis/diabetic foot S/p right TMA 08/2024: Calcaneal ostectomy 11/05/2024: Left BKA Phantom limb pain Psych Positives: depression HEENT Obstetrics Other Syndromes Additional Notes 63 y.o. year old male with a PMH significant for atrial flutter/fib, chronic diastolic CHF, diabetes, hypertension, hyperlipidemia, CPAP, PAD, CKD 3, MERVIN on CPAP who presented as direct admit with plans for left BKA on 11/05 secondary to calcaneal osteomyelitis. OR 11/05/2024: LEFT BKA Physical Exam Airway Mallampati II TM distance [...] KNEE AMPUTATION; Surgeon: Dallas Camejo MD; Location: [facility] OR; Service: Orthopaedics; Laterality: Left; AORTOGRAM- ABDOMINAL Left 09/15/2024 Procedure: LEFT LOWER EXTREMITY ANGIOGRAM; Surgeon: Delbert Mcintosh MD; Location: [facility] OR; Service: Peripheral Vascular; Laterality: Left; BARIATRIC SURGERY 2018 CARDIAC ELECTROPHYSIOLOGY STUDY AND ABLATION x5 CARDIAC PACEMAKER PLACEMENT 2016 CARDIAC SURGERY 2020 watchman device CARDIOVERSION 07/2024 CC PERIPHERAL ANGIOGRAPHY Left 07/2024 LE CHANGE DRESSING WOUND VAC Left 09/10/2024 Procedure: APPLICATION OF WOUND VAC; Surgeon: Dallas Camejo MD; Location: [facility]; Service: Orthopaedics; Laterality: Left; FOOT SURGERY Right x5 INCISION AND DRAINAGE FOOT Left OH PROCEDURE MAZE AFIB OSTECTOMY CALCANEOUS Left 09/10/2024 Procedure: ANKLE PARTIAL CALCANECTOMY; Surgeon: Dallas Camejo MD; Location: [facility]; Service: Orthopaedics; Laterality: Left; wOUND PARTIALLY CLOSED [...] Cell Count Date Value Ref Range Status 11/16/2024 10.7 4.0 - 11.0 Thou/uL Final Hemoglobin Date Value Ref Range Status 11/16/2024 8.1 (L) 13.0 - 17.7 g/dL Final Hematocrit Date Value Ref Range Status 11/16/2024 25.6 (L) 39.0 - 54.0 % Final Platelet Count Date Value Ref Range Status 11/16/2024 408 150 - 450 Thou/uL Final Sodium Date Value Ref Range Status 11/16/2024 130 (L) 136 - 145 mmol/L Final Potassium Date Value Ref Range Status 11/16/2024 3.6 3.4 - 5.3 mmol/L Final CO2 Date Value Ref Range Status 11/16/2024 32 22 - 33 mmol/L Final Chloride Date Value Ref Range Status 11/16/2024 87 (L) 98 - 107 mmol/L Final POC Glucose Date Value Ref Range Status 11/16/2024 211 (H) 65 - 99 mg/dL Final Blood Urea Nitrogen (BUN) Date Value Ref Range Status 11/16/2024 55 (H) 8 - 21 mg/dL Final Creatinine Date Value Ref Range Status 11/16/2024 1.9 (H) 0.5 - 1.3 mg/dL Final Calcium Date Value Ref Range Status 11/16/2024 9.1 8.7 - 10.5 mg/dL Final ABO/Rh Date Value Ref Range Status 11/16/2024 A POSITIVE Final INR Date Value Ref [...] Results Component Value Date ABORH A POSITIVE 11/16/2024 Recent Results (from the past 8760 hour(s)) [...] by 8 bpm Confirmed by MD Claude, [facility] ([id number]) on 11/07/2024 6:25:53 PM NPO Status: Date of Last Liquid Consumption: 11/05/24 Date of Last Solid Consumption: 11/04/24 Time of Last Solid Consumption: 1800 Anesthesia Plan ASA Score: ASA 4 Consent: The anesthetic plan and associated risks was discussed with patient. Anesthesia Plan: general anesthesia The plan was discussed with the following care providers: attending. Post-Operative Pain Management: Post-operative opioids are intended. Routine Analgesia and Antiemetics : The preliminary anesthesia plan and risks were discussed. The final anesthesia plan will be determined by the responsible anesthesiologist. Attending Note I personally evaluated and examined the patient prior to the intra-operative phase of care. Marlin Miner PA-C documented in this encounter Plan of Treatment Upcoming Encounters Date Type Department Care Team (Late st Contact Info) Description 12/07/2024 1:30 PM EDT Appointment [facility] Heart & Vascular [place] - Electrophysiology [address] [place] [phone] Gretel Hinds, MINING ENGINEERING TECHNOLOGIST [address] [address] 12/14/2024 2:00 PM EDT [facility] [address] [place] [address] Dallas Camejo MD [address] [place] [address] 12/16/2024 8:30 AM EDT Office Visit [facility] Infectious Disease [address] [place] [address] Ena Mtz MD [address] [place] [address] documented as of this encounter Procedures Procedure Name Priority Date/Time Associated Diagnosis Comments ANES LINE - ARTERIAL Routine 11/17/2024 2:01 PM EST documented in this encounter Results * ANES LINE - ARTERIAL (11/17/2024 2:01 PM EST) Narrative Marlin Miner PA-C - 11/17/2024 2:01 PM EST Marlin Miner PA-C ? 11/17/2024 ??2:02 PM Anesthesia Procedure Note - Arterial Line Insertion- R radial Patient Name: Luca Crowe : 1960 Patient location: pre-op Indications: hemodynamic monitoring Procedure diagnosis: At risk for hemodynamic instability Procedure Start Time: 11/17/2024 1:45 PM Procedure End Time: 11/17/2024 1:50 PM ? Marlin Miner PA-C Procedure Preparation Skin prep: 2% chlorhexidine - completely dried prior to procedure Hand hygeine performed prior to needle/catheter insertion Sterile barriers in place: cap, gloves, large sterile sheet, gown and mask Procedure Details Moshe's test normal? not performed Needle: 20 g Seldinger technique used Number of attempts: 1 Post Procedure Post-procedure: stablization device applied Marlin Miner PA-C [place] ANESTHESIA documented in this encounter Visit Diagnoses Not on filedocumented in this encounter Administered Medications Inactive Administered Medications - up to 1 most recent administrations Medication Order MAR Action Action Date Dose Rate Site lactated ringers (LR) infusion Intravenous, Continuous PRN, Starting on Fri11/17/24 at 1430, Anesthesia Intra-op New Bag 11/17/2024 2:30 PM EST DAPTOmycin (CUBICIN) 975 mg in sodium chloride [...] 12:34 PM EST 975 mg 139 mL/hr fentaNYL 100 MCG/2ML injection Intravenous, As needed, Starting on Fri11/17/24 at 1430, Anesthesia Intra-op Given 11/17/2024 2:30 PM EST 100 mcg heparin (porcine) 1000 unit/mL injection Subcutaneous, As needed, Starting on Fri11/17/24 at 1555, Anesthesia Intra-op Given 11/17/2024 3:55 PM EST 3,000 Units lidocaine preservative free (XYLOCAINE-MPF) 2 % injection Intravenous, As needed, Starting on Fri11/17/24 at 1430, Anesthesia Intra-op Given 11/17/2024 2:30 PM EST 5 mL norepinephrine (LEVOPHED) 8 mg in sodium chloride (NS) 0.9 % 250 mL IV infusion Intravenous, Continuous PRN, Starting on Fri11/17/24 at 1443, Anesthesia Intra-op Rate/Dose Change 11/17/2024 4:21 PM EST 10 mcg/min 18.75 mL/hr ondansetron (ZOFRAN) injection 4 mg 4 mg, Intravenous, Every 6 hours PRN, nausea, vomiting, Starting on Fri11/05/24 at 1912 Given 11/17/2024 4:39 PM EST 4 mg propofol (diPRIvan) injection Intravenous, As needed, Starting on Fri11/17/24 at 1430, Anesthesia Intra-op Given 11/17/2024 3:55 PM EST 50 mg rocuronium (ZEMURON) 50 mg/5mL injection Intravenous, As needed, Starting on Fri11/17/24 at 1433, Anesthesia Intra-op Given 11/17/2024 3:10 PM EST 50 mg sugammadex (BRIDION) injection Intravenous, As needed, Starting on Fri11/17/24 at 1635, Anesthesia Intra-op Given 11/17/2024 4:35 PM EST 200 mg documented in this encounter 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/10/24 09/16/2024 09/16/2024 11/24/2024 3:08 P M EST documented as of this encounter Care Teams Spring Tier Relationship Specialty Start Date End Date Lee Fabian MD [address] [place] [address] PCP - General Internal Medicine 09/02/24 Vitaliy Fields MD [address] [address] Cardiovascular Disease 09/02/24 Dallas Camejo MD [address] [place] [address] Surgery, Orthopedic 09/02/24 Rolando Lopez MD [address] Transplant - Ph [address] [place] [address] Physician Nephrology 09/02/24 Cesar Fair MD 85 [facility] [address] [place] [address] Surgery, Cardiac 11/08/24 documented as of this encounter
--- OUTSIDE RECORDS SUMMARY | 2024-12-02 10:40 | XMS_ITS | Encounter Summary ---
Author Organization [facility] Address [address] [place] [address] Care Team Providers Care Bag Machine Helper Name Role Phone Lee Fabian MD Primary Care Provider [phone] Vitaliy Fields MD Unavailable [phone] Dallas Camejo MD Unavailable [phone] Rolando Lopez MD Unavailable [phone] Encounter Details Date Type Department Care Team (Latest Contact Info) Description 11/04/2024 Travel Social History Tobacco Use Types Packs/Day Years Used Date Smoking Tobacco: Former Cigarettes 1 29.2 1 977 - 2004 Smokeless Tobacco: Never Alcohol Use Standard Drinks/Week Comments Yes 21 (1 standard drink = 0.6 oz pu re alcohol) [facility] Utilities Answer Date Recorded In the past 12 months has [employer], [employer], oil, or water [employer] threatened to shut off services in your [...] Info) Description 12/07/2024 1:30 PM EDT Appointment [facility] Heart & Vascular [place] - Electrophysiology [address] [place] [phone] Gretel Hinds, SPA THERAPIST [address] [phone] 12/14/2024 2:00 PM EDT [facility] [place] [phone] Dallas Camejo MD [address] [place], [place] [phone] 12/16/2024 8:30 AM EDT Office Visit [facility] Infectious Disease [address] [place] [phone] Ena Mtz MD [address] [place], [place] [phone] documented as of this encounter Visit Diagnoses Not on filedocumented in this encounter 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/10/24 09/16/2024 09/16/2024 11/24/2024 3:08 P M EST documented as of this encounter Care Teams Bag Machine Helper Relationship Specialty Start Date End Date Lee Fabian MD [address] [place] [id number] PCP - General Internal Medicine 09/02/24 Vitaliy Fields MD [address] [address] Cardiovascular Disease 09/02/24 Dallas Camejo MD [address] [place] [address] Surgery, Orthopedic 09/02/24 Rolando Lopez MD [address] Trans[facility] - Ph [address] [place] [address] Physician Nephrology 09/02/24 documented as of this encounter
--- OUTSIDE RECORDS SUMMARY | 2024-12-02 10:40 | XMS_ITS | Encounter Summary ---
Author Organization [facility] Address [address] [place] [address] Care Team Providers Care Team Driver Name Role Phone Lee Fabian MD Primary Care Provider [phone] Vitaliy Fields MD Unavailable [phone] [place] Camejo MD Unavailable [phone] Rolando Lopez MD Unavailable [phone] Encounter Details Date Type Department Care Team (Late st Contact Info) Description 11/02/2024 8:55 AM EST Ancillary [facility] [address] [place] [address] Social History Tobacco Use Types Packs/Day Years Used Date Smoking Tobacco: Former Cigarettes 1 29.2 1 977 - 2004 Smokeless Tobacco: Never Alcohol Use Standard Drinks/Week Comments Yes 21 (1 standard drink = 0.6 oz pu re alcohol) [facility] Utilities Answer Date Recorded In the past 12 months has [employer], gas, oil, or water [employer] threatened to shut off services in your home? No 11/03/2024 AUDIT-C Answer Date Recorded Q1: How often do you have a drink containing alc ohol? 2-3 times a week 11/02/2024 Q2: How many drinks containi ng alcohol do you have on a typical day when you are drinking? 3 or 4 11/02/2024 Q3: How often do you have si x or more drinks on one occasion? Less than monthly 11/02/2024 Overall Financial Resource Strain (CARDIA) Answe r [...] time in the past 12 m [facility], were you homeless or living in a long-term (including now)? No 11/03/2024 Sex and Gender Information Value Date Recorded Sex Assigned at Male 09/03/2024 12:21 PM EST Gender Identity Male 09/03/2024 12:21 PM EST Sexual Orientation Heterosexual (straight) 09/10 7:58 AM EST documented as of this encounter Plan of Treatment Upcoming Encounters Date Type Department Care Team (Late st Contact Info) Description 12/07/2024 1:30 PM EDT Appointment [facility] [place] - Electrophysiology [address] [place] [address] Gretel Hinds, AUTOMATIC THREAD WINDER [address] [address] 12/14/2024 2:00 PM EDT Office Visit [facility] [address] [place] [address] [place] Camejo MD 7 [place] [address] 12/16/2024 8:30 AM EDT Office Visit [facility] Infectious Disease [address] [place] [phone] Ena Mtz MD [address] [place] [address] documented as of this encounter Procedures Procedure Name Priority Date/Time Associated Diagnosis Comments XR FOOT 1 VIEW-LEFT Routine 11/02/2024 9:13 AM EST Acute osteomyelitis of left calcaneus (HCC) documented in this encounter Results * XR Foot 1 view-Left (11/02/2024 9:13 AM EST) Narrative OAH - 11/02/2024 9:13 AM EST This exam was performed in office at [facility] and images reviewed by orthopedic provider. ??Any findings are documented within ambulatory encounter note on date of service. [place] Camejo MD IMG DIAGNOSTIC IMAGI NG ORDERABLES [facility] documented in this encounter Visit Diagnoses Not on filedocumented in this encounter 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/10/24 09/16/2024 09/16/2024 11/24/2024 3:08 P M EST documented as of this encounter Care Teams Team Driver Relationship Specialty Start Date End Date Lee Fabian MD [address] [place] [address] PCP - General Internal Medicine 09/02/24 Vitaliy Fields MD [address] [place] [address] Cardiovascular Disease 09/02/24 [place] Camejo MD 7 [place] [address] Surgery, Orthopedic 09/02/24 Rolando Lopez MD [address] Transplant - Ph [address] [place] [address] Physician Nephrology 09/02/24 documented as of this encounter
--- OUTSIDE RECORDS SUMMARY | 2024-12-02 10:40 | XMS_ITS | Encounter Summary ---
Author Organization [facility] Address [address] [place] [address] Care Team Providers Care Jewelry Salesperson Name Role Phone Lee Fabian MD Primary Care Provider [phone] Vitaliy Fields MD Unavailable [phone] [place] Camejo MD Unavailable [phone] Rolando Lopez MD Unavailable [phone] Cesar Fair MD Unavailable [phone] Encounter Details Date Type Department Care Team (Latest Contact Info) Description 11/11/2024 Travel Social History Tobacco Use Types Packs/Day Years Used Date Smoking Tobacco: Former Cigarettes 1 29.2 1 977 - 2004 Smokeless Tobacco: Never Alcohol Use Standard Drinks/Week Comments Yes 21 (1 standard drink = 0.6 oz pu re alcohol) [facility] Utilities Answer Date Recorded In the past 12 months has [employer], gas, oil, or water [employer] threatened to shut off services in your [...] any time in the past 12 m [facility], were you homeless or living in [...] Info) Description 12/07/2024 1:30 PM EDT Appointment [facility] Heart & Vascular [place] - Electrophysiology [address] [place] [address] Gretel Hinds, HARNESS CLEANER [address] [id number] 12/14/2024 2:00 PM EDT [facility] Visit [facility] [address] [place] [address] [place] Camejo MD 7 [place] [address] 12/16/2024 8:30 AM EDT Office Visit [facility] Infectious Disease [address] [place] [address] Ena Mtz MD [address] [place], [place] [phone] documented as of this encounter Visit Diagnoses Not on filedocumented in this encounter 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/10/24 09/16/2024 09/16/2024 11/24/2024 3:08 P M EST documented as of this encounter Care Teams Jewelry Salesperson Relationship Specialty Start Date End Date Lee Fabian MD [address] [place] [address] PCP - General Internal Medicine 09/02/24 Vitaliy Fields MD [address] [place] [address] Cardiovascular Disease 09/02/24 [place] Camejo MD 7 [place] [address] Surgery, Orthopedic 09/02/24 Rolando Lopez MD [address] Transplant - Ph [address] [place] [address] Physician Nephrology 09/02/24 Cesar Fair MD 85 [facility] [address] [place] [address] Surgery, Cardiac 11/08/24 documented as of this encounter
--- OUTSIDE RECORDS SUMMARY | 2024-12-02 10:41 | XMS_ITS | Encounter Summary ---
Author Organization [facility] Address [address] [place] [address] Care Team Providers Care Emission Technician Name Role Phone Lee Fabian MD Primary Care Provider Vitaliy Fields MD Unavailable [place] Camejo MD Unavailable [phone] Rolando Lopez MD Unavailable Reason for Visit * Auth/Cert Specialty Diagnoses / Procedures Referred By [place] t Referred To Contact Diagnoses left ankle infection Procedures N/A Referral ID Status Reason Start Date Expiration Date Visits Re quested Visits Authorized [id number] 1 1 Encounter Details Date Type Department Care Team (Late st Contact Info) Description 11/05/2024 1:15 PM EST Anesthesia Event [facility] [place] [facility] [address] [place] [phone] Gaston Martinez MD [address] [address] Juaquin Rueda MD [address] [place] [address] Anesthesia Record Procedure Summary Procedure Name Responsible Anesthesiologist Anesthesia Start Time Anesthesia Stop Time BLOCK - Lower Extremity Gaston Martinez MD 11/05/24 1315 11/05/24 1327 Events Date Time Event Comment 11/05/2024 1315 Vitals from RN 1315 An Start 1315 AN Block Timeout 1316 Block Start 1326 Block Placed 1326 Block Stop 1327 An Stop 1327 Handoff to Receiving I compl eted my handoff to the receiving clinician during which we: 1. Identified the patient 2. Identified the responsible provider 3. Reviewed pertinent medical history 4. Discussed the surgical or procedural course 5. Reviewed intraoperative management and issues during anesthesia 6. Set expectations for the post-procedure period 7. Allowed opportunity for questions and acknowledgement of understanding. Meds Name Total midazolam 1 mg/mL injection 2 mg bupivacaine 0.5% (PF) injection 60 mL mepivacaine 1.5% (PF) injection 10 mL * Agents Name Aux O2 * Blood No blood administrations on file. Lines, Drains, and Airways Type Details Placement Removal Brace/Orthotic/Orthos is 09/10/24; 1301; left; ankle/foot; splint 09/10/24 1301 by Mary Emery RN Wound (Adult, Obstetrics, Pediatric) 11/02/24; 1900; Right; foot, plantar 11/02/24 1900 by Belkys Diaz RN NPWT (Negative Pressure Wound Therapy) 09/10/24; [...] Mario Bhatt RN PIV-Single luman 11/03/24; 2100; cephalic vein (lateral side of arm), left; [id number] catheter system; 22 gauge, 1 in length, 3/4 in length; ultrasound guidance; 0; 11/08/24; 0000 11/03/24 2100 by Adama Ricci RN 11/08/24 0000 by Anna Martinez RN documented in this encounter Social History Tobacco Use Types Packs/Day Years Used Date Smoking Tobacco: Former Cigarettes 1 29.2 1 977 - 2003 Smokeless Tobacco: Never Alcohol Use Standard Drinks/Week Comments Yes 21 (1 standard drink = 0.6 oz pu re alcohol) [facility] Utilities Answer Date Recorded In the past 12 months has [employer], gas, oil, or water [employer] threatened to shut off services in your [...] were you homeless or living in a custodial (including now)? No 11/03/2024 Sex and Gender Information Value Date Recorded Sex Assigned at Male 09/03/2024 12:21 PM EST Gender Identity Male 09/03/2024 12:21 PM EST Sexual Orientation Heterosexual (straight) 09/10 7:58 AM EST documented as of this encounter OR Notes * Anesthesia Procedure Notes - Juaquin Rueda MD - 11/05/2024 2:13 PM EST Associated Order(s): Block - Lower Extremity Anesthesia Procedure Note - Lower Extremity Block Patient Name: Luca Crowe : 1960 Patient location: pre-op Reason for block: post-op pain management Procedure diagnosis: Post-op pain Procedure Start Time: 11/05/2024 1:16 PM Procedure End Time: 11/05/2024 1:26 PM Chart Verification ID band applied and present Patient ID verified via arm band, verbally with patient. H&P verified: Yes Pre-op test results in chart Consents confirmed: operative, anesthesia and informed Nursing assessment complete: yes Anesthesia questionnaire complete: yes Antibiotic ordered: n/a Procedure Verification/TIMEOUT Correct procedure: yes Correct patient position: yes Correct laterality: Yes Correct site: yes Site/side marked: Yes Sterility reviewed: yes Special equipment or implants: Yes Safety precautions discussed with procedural staff: yes Preanesthetic Checklist Monitors and equipment checked Patient pre-procedure mental status: awake The patient was sedated prior to procedure. Patient Sedated: mild. Patient Preprocedure Preparation Skin prep: 2% chlorhexidine-completely dried prior to procedure Hand hygeine performed prior to needle/catheter insertion Sterile barriers in place: Cap, gloves and mask Procedure Details Block A: sciatic nerve - popliteal - single shot technique Short-bevel needle, 22 g, 3.5 in Laterality left Block B: femoral nerve - Single shot Short-bevel needle, 22 g, 3.5 in Laterality left Technique(s): Ultrasound guided Post-procedure Verification Counts correct: n/a Specimens labeled correctly: n/a Equipment problems to be addressed: n/a Recovery issues: n/a Outcomes Result: successful block Outcome: block complete Patient tolerated procedure well. Additional Comments: Nerve block requested by surgeon for post-op analgesia. Sterile technique with CHG-alcohol prep allowed to dry. Continuous needle visualization with in-plane technique. Technically difficult block given patient's significant peripheral edema. Nerve stim used for both blocks Femoral - needle advanced under continuous in-plane ultrasound visualization with continuous visualization of the needle tip. Needle advanced from lateral to medial, avoiding vascular and nervous structures. Local anesthetic injected under low pressure avoiding intraneuronal injection of the femoral nerve. No nerve swelling noted post-injection, no pain or paresthesia reported by patient. Meaningful patient verbal response maintained throughout procedure. Sciatic nerve - Good ultrasound visualization of needle and needle tip throughout procedure. Needleadvanced under continuous in-plane ultrasound visualization towards the sciatic nerve at the junction of the tibial and common peroneal nerves from lateral to medial. Appropriate local anesthetic spread around the nerve under low pressure injection using a 10mL syringe. Patient tolerated well. Negative aspiration with a 10 ml syringe at least every 5 mL of injection. Meaningful patient verbal response maintained throughout procedure. Patient tolerated well. documented in this encounter Plan of Treatment Upcoming Encounters Date Type Department Care Team (Late st Contact Info) Description 12/07/2024 1:[address] [facility] Heart & V[facility] [place] - Electrophysiology [address] [place] [address] Gretel Hinds, TEACHER OF FAMILY AND CONSUMER SCIENCE [address] [address] 12/14/2024 2:00 PM EDT [facility] Visit [facility] [address] [address] [place] Camejo MD [address] [place] [address] 12/16/2024 8:30 AM EDT Office Visit [facility] Infectious Disease [address] [place] [phone] Ena Mtz MD [address] [place] [phone] documented as of this encounter Procedures Procedure Name Priority Date/Time Associated Diagnosis Comments ANES BLOCK - LOWER EXTREMITY Routine 11/05/2024 2:13 PM EST documented in this encounter Results * Block - Lower Extremity (11/05/2024 2:13 PM EST) Narrative Juaquin Rueda MD - 11/05/2024 2:13 PM EST Juaquin Rueda MD ? 11/05/2024 ??2:14 PM Anesthesia Procedure Note - Lower Extremity Block Patient Name: Luca Crowe : 1960 Patient location: pre-op Reason for block: post-op pain management Procedure diagnosis: Post-op pain Procedure Start Time: 11/05/2024 1:16 PM Procedure End Time: 11/05/2024 1:26 PM Chart Verification ID band applied and present Patient ID verified via arm band, verbally with patient. H&P verified: Yes Pre-op test results in chart Consents confirmed: operative, anesthesia and informed Nursing assessment complete: yes Anesthesia questionnaire complete: yes Antibiotic ordered: n/a Procedure Verification/TIMEOUT Correct procedure: yes Correct patient position: yes Correct laterality: Yes Correct site: yes Site/side marked: Yes Sterility reviewed: yes Special equipment or implants: Yes Safety precautions discussed with procedural staff: yes Preanesthetic Checklist Monitors and equipment checked Patient pre-procedure mental status: awake The patient was sedated prior to procedure. Patient Sedated: mild. Patient Preprocedure Preparation Skin prep: 2% chlorhexidine-completely dried prior to procedure Hand hygeine performed prior to needle/catheter insertion Sterile barriers in place: Cap, gloves and mask Procedure Details Block A: sciatic nerve - popliteal - single shot technique Short-bevel needle, 22 g, 3.5 in Laterality left Block B: femoral nerve - Single shot Short-bevel needle, 22 g, 3.5 in Laterality left Technique(s): Ultrasound guided Post-procedure Verification Counts correct: n/a Specimens labeled correctly: n/a Equipment problems to be addressed: n/a Recovery issues: n/a Outcomes Result: successful block Outcome: block complete Patient tolerated procedure well. Additional Comments: Nerve block requested by surgeon for post-op analgesia. Sterile technique with CHG-alcohol prep allowed to dry. Continuous needle visualization with in-plane technique. Technically difficult block given patient's significant peripheral edema. Nerve stim used for both blocks Femoral - needle advanced under continuous in-plane ultrasound visualization with continuous visualization of the needle tip. Needle advanced from lateral to medial, avoiding vascular and nervous structures. Local anesthetic injected under low pressure avoiding intraneuronal injection of the femoral nerve. No nerve swelling noted post-injection, no pain or paresthesia reported by patient. ??Meaningful patient verbal response maintained throughout procedure. Sciatic nerve - Good ultrasound visualization of needle and needle tip throughout procedure. Needle advanced under continuous in-plane ultrasound visualization towards the sciatic nerve at the junction of the tibial and common peroneal nerves from lateral to medial. ??Appropriate local anesthetic spread around the nerve under low pressure injection using a 10mL syringe. Patient tolerated well. Negative aspiration with a 10 ml syringe at least every 5 mL of injection. Meaningful patient verbal response maintained throughout procedure. Patient tolerated well. Gaston Martinez MD [place] [facility] documented in this encounter Visit Diagnoses Not on filedocumented in this encounter Administered Medications Inactive Administered Medications - up to 1 most recent administrations Medication Order MAR Action Action Date Dose Rate Site bupivacaine preservative free (MARCAINE) 0.5 % injection Nerve Block, As needed, Starting on Fri11/05/24 at 1326, Anesthesia Intra-op Given 11/05/2024 1:26 PM EST 60 mL mepivacaine (CARBOCAINE) 1.5 % injection Nerve Block, As needed, Starting on Fri11/05/24 at 1326, Anesthesia Intra-op Given 11/05/2024 1:26 PM EST 10 mL midazolam (VERSED) 1 mg/mL injection Intravenous, As needed, Starting on Fri11/05/24 at 1315, Anesthesia Intra-op Given 11/05/2024 1:15 PM EST 2 mg documented in this encounter 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
--- OUTSIDE RECORDS SUMMARY | 2024-12-02 10:42 | XMS_ITS | Encounter Summary ---
Author Organization [facility] Address [address] [place] [address] Care Team Providers Care Delivery Clerk Name Role Phone Lee Fabian MD Primary Care Provider [phone] Encounter Details Date Type Department Care Team (Late st Contact Info) Description 11/19/2024 Telephone Infectious Disease - [place] [address] [place] [address] Marlin Keene RN Social History Tobacco Use Types Packs/Day Years [...] 11:54 PM EST Erik Abbott RN * Do you have serious difficulty [...] documented in this encounter Progress Notes * Marlin Keene RN - 11/19/2024 4:05 PM EST We received a call from [facility]. They are making plans to discharge patient and wanted tosee if Dr. Coffey could follow him. Dr. Coffey reviewed the case. Unfortunately his situation is complex and it was felt that we did not have the resources to handle. Dr. Coffey spoke with Dr. Bibi Busby. I spoke with patient. He understood, but was not happy in [facility]. He is an employee at [employer] and will seek out continued care there. documented in this encounter Plan of Treatment Upcoming Encounters Date Type Department Care Team (Late st Contact Info) Description 12/06/2024 10:30 AM EDT Office Visit Internal Medicine - [address] [address] Lee Fabian MD [address] [place] [address] documented as of this encounter Goals Goal [...] ulceration/compr omised skin integrity. Susan Allison RN documented as of this encounter Visit [...] documented as of this encounter Care Teams Delivery Clerk Relationship Specialty Start Date End Date Lee Fabian MD [address] [place] [address] PCP - General Internal Medicine 08/03/24 documented as of this encounter
--- OUTSIDE RECORDS SUMMARY | 2024-12-02 10:42 | XMS_ITS | Encounter Summary ---
Author Organization [facility] Address [address] [place] [address] Care Team Providers Care Hvac Designer Name Role Phone Lee Fabian MD Primary Care Provider [phone] Reason for Visit * Reason Onset Date Comments Faxed Order 11/26/2024 Driss BLACKMAN Encounter Details Date Type Department Care Team (Late st Contact Info) Description 11/26/2024 Telephone Internal Medicine - [address] [address] Lee Fabian MD [address] [place] [address] Faxed Order (Driss BLACKMAN ) Social History Tobacco Use Types Packs/Day Years [...] 09/19/2024 11:54 PM Erik Rendon RN * Are you blind or do [...] Progress Notes * Isabela Flood MA - 2024 8:50 AM EST faxed * Nani Dickerson - 11/26/2024 2:38 PM EST [facility] Please complete and fax back to [phone]. Thank you. documented in this encounter Plan of Treatment Upcoming Encounters Date Type Department Care Team (Late st Contact Info) Description 12/06/2024 10:30 AM EDT Office Visit Internal Medicine - [address] [address] Lee Fabian MD [address] [place] [address] documented as of this encounter Goals Goal [...] documented as of this encounter Care Teams Hvac Designer Relationship Specialty Start Date End Date Lee Fabian MD [address] [place] [address] PCP - General Internal Medicine 08/03/24 documented as of this encounter
--- OUTSIDE RECORDS SUMMARY | 2024-12-02 10:42 | XMS_ITS | Encounter Summary ---
Author Organization [facility] Address [address] [place] [address] Care Team Providers Care Groundskeeping Maintenance Name Role Phone Lee Fabian MD Primary Care Provider [phone] Reason for Visit * Reason Onset Date Comments Hospital Follow-up 2024 Encounter Details Date Type Department Care Team (Late st Contact Info) Description 2024 Telephone Internal Medicine - [place] [address] [place] [address] Lee Fabian MD [address] [place] [address] Hospital Follow-up Social History Tobacco Use Types Packs/Day Years [...] Assessment Author Yes 09/19/2024 11:54 PM Erik Rednon RN * Do you have serious difficulty [...] documented in this encounter Progress Notes * Leatha Chavez RN - 2024 10:58 AM EST Spoke with pt [facility] f/u appt. scheduled * Kevin Stroud - 2024 10:10 AM EST Hospital/ER follow up appointment needed Hospital patient was treated at: [facility] Was this only an ER visit or was the patient admitted to the hospital? Admitted to the hospital/kept overnight Date of visit if ER visit only: If patient was admitted what was the date of discharge? 11/25/24 Reason/diagnosis for visit or stay: infection of left foot, amputated When was the patient told to follow up? Within a week Was visit or stay related to an injury? If yes, what was the date of injury (DOI)? No If yes, was the injury due to: Not 3rd alliance party related documented in this encounter Plan of Treatment Upcoming Encounters Date Type Department Care Team (Late st Contact Info) Description 12/06/2024 10:30 AM EDT Office Visit Internal Medicine - [facility] [address] [place], [place] [phone] Lee Fabian MD [address] [place] [address] documented as of this encounter Goals Goal [...] documented as of this encounter Care Teams Groundskeeping Maintenance Relationship Specialty Start Date End Date Lee Fabian MD [address] [place], [place] [phone] PCP - General Internal Medicine 08/03/24 documented as of this encounter
--- OUTSIDE RECORDS SUMMARY | 2024-12-02 10:42 | XMS_ITS | Encounter Summary ---
Author Organization [facility] Address [address] [place] [address] Care Team Providers Care Tool Lapper Hand Name Role Phone Lee Fabian MD Primary Care Provider Reason for Visit * Reason Onset Date Comments Faxed Order 11/05/2024 [facility] (Cer t/POC 2-12/29) Encounter Details Date Type Department Care Team (Late st Contact Info) Description 11/05/2024 Telephone Internal Medicine - [address] [phone] Lee Fabian MD [address] [place] [id number] Faxed Order ([place] [facility] (Cert/POC /2-12/29)) Social History Tobacco Use Types Packs/Day Years [...] documented in this encounter Progress Notes * Sri Nieves MA - 11/09/2024 1:24 PM EST Signed and faxed * Nani Dickerson - 11/05/2024 3:35 PM EST [facility]. Please complete and fax back to [phone]. Thank you. documented in this encounter Plan of Treatment Upcoming Encounters Date Type Department Care Team (Late st Contact Info) Description 12/06/2024 10:30 AM EDT Office Visit Internal Medicine - [address] [phone] Lee Fabian MD [address] [place] [address] [place] [id number] documented as of this encounter Goals Goal [...] documented as of this encounter Care Teams Tool Lapper Hand Relationship Specialty Start Date End Date Lee Fabian MD [address] [place] [address] PCP - General Internal Medicine 08/03/24 documented as of this encounter
--- OUTSIDE RECORDS SUMMARY | 2024-12-02 10:42 | XMS_ITS | Encounter Summary ---
Author Organization [facility] Address [address] [place] [address] Care Team Providers Care Netbackup Admin Name Role Phone Lee Fabian MD Primary Care Provider Vitaliy Fields MD Unavailable Dallas Camejo MD Unavailable Rolando Lopez MD Unavailable Cesar Fair MD Unavailable Reason for Visit * Auth/Cert Specialty Diagnoses / Procedures Referred By Contac t Referred To Contact Diagnoses left ankle infection Procedures N/A Referral ID Status Reason Start Date Expiration Date Visits Re quested Visits Authorized [id number] 1 1 Encounter Details Date Type Department Care Team (Late st Contact Info) Description 11/17/2024 1:37 PM EST - 11/17/2024 4:43 PM EST Surgery [facility] Perioperative Surgical Services [address] [place] [address] Rui Pabon MD [address] [place] [address] [id number] Extraction lead(s) laser from dual PM system; [id number] Social History Tobacco Use Types Packs/Day Years [...] time in the past 12 m [facility], were you homeless or living in a longterm (including now)? No 11/03/2024 Sex and Gender Information Value Date Recorded Sex Assigned at Male 09/03/2024 12:21 PM EST Gender Identity Male 09/03/2024 12:21 PM EST Sexual Orientation Heterosexual (straight) 09/10 7:58 AM EST documented as of this encounter Last Filed Vital Signs Vital Sign Reading Time Taken Comments Blood Pressure 119/64 11/17/2024 2:00 PM EST Pulse 60 11/17/2024 2:00 PM EST Temperature 36.3 ??C (97.4 ??F) 11/17/2024 2:00 PM ES T Respiratory Rate 29 11/17/2024 2:00 PM EST Oxygen Saturation 92% 11/17/2024 2:00 PM EST Inhaled Oxygen Concentration - - Weight 120 kg (264 lb 8 oz) 11/02/2024 9:[address] Height 190.5 cm (6' 3 ) 11/09/2024 [...] MD (Surgery, Cardiac) Daisy Her PT as Licensed Bondsman (Physical Medicine and Rehabilitation) PRIMARY DISCHARGE DIAGNOSIS [...] regurgitation (POA: Unknown) Resolved Problems: DISCHARGE DISPOSITION Retirement Facility Code Status Procedures Full code . [...] Continuous Glucose Sensor (FreeStyle Wallace 3 Sensor) [facility] INJECT 1 DEVICE INTO THE SKIN EVERY [...] Routine Referral Type: Home Health Referral Location: [facility] [...] Department Center 12/07/2024 1:30 PM ROOM, ICD/PACER[facility] Arrhythmi 12/15/2024 10:45 AM Alba Ramos MD [id number] PM&r 12/16/2024 8:30 AM Ena Mtz MD [...] PAD, RLS and CKD3 that presents to [facility] inpatient floor as a direct admit [...] while on IV antibiotics. Fax results to [phone] 4. Patient will need to be scheduled [...] Case IDs Date Procedure Surgeon Location Status [id number] 11/05/24 LEFT BELOW KNEE AMPUTATION Dallas Camejo MD [facility] OR Comp [id number] 11/17/24 Extraction lead(s) laser from dual PM system; 72417 Rui Pabon MD Main OR Comp [id number] 11/19/24 CVC INSERT (TUNNEL)W/O PORT > 5 YRS Devon Vogt DO IR Comp Diagnostic Studies: XR Foot 1 view-Left Result Date: 11/02/2024 This exam was performed in office at [facility] and images reviewed by orthopedic [...] * Discharge Instr - Other Orders* Gretel Hinds APRN - 11/17/2024 9:20 AM EST Cardiac Device Extraction Discharge Instructions Important phone numbers: Long Line Teamster/Surgeon???s office: [phone] (8am-4:30pm Fri - Friday Our answering service [...] If it does not stop, go to [facility] ER or walk-in center. If you experience any of the above, call your surgeon/elementary school science teacher???s office immediately. If still present, remove the [...] Report any of these symptoms to your elementary school science teacher. Call your primary disaster recovery consultant if you experience any of the following: [...] Discharge Instructions Important phone numbers: [facility]: [phone] (8am-4:30pm Fri-Friday) Long Line Teamster/Surgeon???s office: [phone] (8am-4:30pm Fri -Friday) Our answering service is [...] experience any of the above, call your elementary school science teacher???s office immediately It is normal to have [...] dental procedure. You should call your primary disaster recovery consultant if you experience any of the following: [...] when you get home. If your primary disaster recovery consultant???s office will monitor your pacemaker, please call [...] Juany Ospina RN - 11/25/2024 7:51 PM ESTSummary: Nurse Navigator Note 11/26/24 1210 Transition Call Pain level 5 How well is pain controlled? Well controlled Discharged medications reviewed with patient? Yes Are you taking meds as prescribed? Yes Do you have any questions or concerns about your medication? Yes (Asked about why he only has IV meds to get him through the weekend - advised to call [facility] - phone number on pg 5 [...] Plan Plan Home w/family and [facility] Patient/Family in Agreement with Plan yes Final Discharge Disposition Code 06 - home with home health care Final Case Management Care Plan Note Summary: Per provider, patient is medically ready to transition home with services. Confirmed that patient is able to obtain medications/food/necessities post discharge. Patient now refusing HSC (LTACH) and returning home with son, [facility] for IV abx and [facility]. Final Destination: Home with son and [facility] Plan for home support/Caregiver/responsible person: Son and [facility] Follow-up provider appointment: Per AVS/W-10 Equipment Ordered [...] level of independence with self-care tasks. Current [facility] Daily Activity Score: 18 Precautions/Restrictions: aspiration, [...] in recliner, in NAD on RA, agreeable. Shelving Supervisor + limb protector donned to LLE Pain Assessment Pre/Posttreatment Pain Comment denied pain Coping Observed Emotional State calm;cooperative Safety Safety WDL WDL Progressive Mobility Progressive Mobility Level Achieved Transferring to Chair [facility] Daily Activity Putting on and taking off Lower Body Clothing? 3 Bathing (including washing/rinsing/drying)? 2 Toileting (includes using toilet, bedpan, or urinal)? 2 Putting on and taking off upper body clothing? 3 Taking care of personal grooming such as brushing teeth? 4 Eating meals? 4 [facility] Daily Activity Score 18 Progress Summary (OT) Progress Toward Functional Goals (OT) progress toward functional goals is good Sign: Christen Tapia, OT * Aditi Jones PA-C - 11/25/2024 11:50 AM EST PHYSICAL MEDICINE & REHABILITATION CONSULT FOLLOW-UP NOTE Patients Name: Blas Genao : 1960 MR Number: [id number] Reason for Consultation: Amputee rehab needs Date [...] support, tolerance to therapy and plan for intermediate frame tender antibiotics. He mayhave ability to progress to [...] drop Each Eye Q2H PRN Gretel Hinds, MARKET EDITOR cefTRIAXone (ROCEPHIN) 2 g in sodium chloride-MBP [...] Daily Leroy Sanchez MD 1 application(s) at 11/24/242108 folic acid (FOLVITE) tablet 1 mg 1 mg Oral Daily Corbin Lamb APRN 1 mg at 11/25/24 0934 glimepiride (AMARYL) tablet 2 mg 2 mg Oral Daily with breakfast Gianluca Calles MD 2 mg at 11/25/24 0935 heparin (porcine) 5000 unit/mL injection 5,000 Units 5,000 Units Subcutaneous Q8H [facility] Gianluca Calles MD 5,000 Units at 11/25/24 0931 insulin glargine (LANtus/SEMGLEE) 100 units/mL injection 10 Units 10 Units Subcutaneous Daily Corbin Lamb MARKET EDITOR 10 Units at 11/25/24 0933 insulin lispro [...] 3 mL Nebulization Q2H PRN Corbin Lamb MARKET EDITOR 3 mL at 11/07/24 1025 lactulose (ENULOSE) 10 gm/15 mL solution 20 g 20 g Oral Q4H PRN Corbin Lamb MARKET EDITOR melatonin tablet 3 mg 3 mg Oral Nightly PRN Corbin Lamb MARKET EDITOR 3 mg at 11/19/24 2222 methocarbamol (ROBAXIN) tablet 1,000 mg 1,000 mg Oral 4x Daily Corbin Lamb, MARKET EDITOR 1,000 mg at 11/25/24 0934 metoPROLOL TARTRATE (LOPRESSOR) tablet 50 mg 50 mg Oral BID Corbin Lamb, MARKET EDITOR 50 mg at 11/25/24 0935 multivitamin with minerals tablet 1 tablet 1 tablet Oral Daily Corbindenise Lamb, MARKET EDITOR 1 tablet at 11/25/24 0935 naloxone (NARCAN) 0.4 mg/mL injection 0.4 mg 0.4 mg Intravenous Q5 Min PRN Corbin Lamb MARKET EDITOR naloxone (NARCAN) 0.4 mg/mL injection 0.4 mg 0.4 mg Intravenous Q5 Min PRN Corbindenise Lamb MARKET EDITOR nicotine (NICODERM CQ) 21 MG/24HR patch 1 patch 1 patch Transdermal Daily Corbin Lamb MARKET EDITOR 1 patch at 11/25/24 0930 ondansetron (ZOFRAN) injection 4 mg 4 mg Intravenous Q6H PRN Corbindenise Lamb MARKET EDITOR 4 mg at 11/17/24 1639 PANTOprazole (PROTONIX) EC tablet 40 mg 40 mg Oral Daily Corbin Lamb, MARKET EDITOR 40 mg at 11/25/24 0935 polyethylene glycol (miraLAx) packet 17 g 17 g Oral Daily Corbindenise Lamb MARKET EDITOR 17 g at 11/25/24 0932 [Provider Held] pravastatin (PRAVACHOL) tablet 20 mg 20 mg Oral Daily Corbindenise Lamb, MARKET EDITOR pregabalin (LYRICA) capsule 100 mg 100 mg Oral TID Corbindenise Lamb, MARKET EDITOR 100 mg at 11/25/24 0935 senna-docusate (SENNA-S) 8.6-50 MG tablet 2 tablet 2 tablet Oral BID Corbindenise Lamb, MARKET EDITOR 2 tablet at 11/25/24 0936 thiamine mononitrate (VITAMIN B-1) tablet 200 mg 200 mg Oral Daily Corbindenise Lamb, MARKET EDITOR 200 mg at11/25/24 0934 Physical Exam: Vitals: [...] S/p Left BKA 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 Plan of Care Patient's plan of [...] Sanchez MD - 11/24/2024 3:17 PM EST [facility] MEDICINE PROGRESS NOTE Assessment & Plan [...] while on IV antibiotics. Fax results to [phone] 4. Patient will need to be scheduled [...] again today. Upon arrival he had a marketing team lead in the room with him.Waited outside for 20 minutes before moving on to other patients. Will attempt to meet with patientagain later this week to review stoplight previously provided. * Ena Mtz MD - 11/24/2024 11:24 AM EST Images from the original note were not included. [facility] INFECTIOUS DISEASE Consult progress Note Name: Blas [...] while on IV antibiotics. Fax results to [phone] 4. Patient will need to be scheduled for repeat TAITANNA end of November. Patient would like to get this done at [facility] He can follow-up with me on 12/16/2024 [...] 0849 Sign Ena Mtz MD, FACP, CWSP [facility] Infectious Diseases Available via BookShout! SUBJECTIVE Remains in the hospital awaiting placement [...] not compromised. This report was generated using [employer] Speaking dictation software. Although every attempt has been made by the provider to proofread this document, occasional misspellings and typographical errors may still be present. * Gianluca Calles MD - 11/23/2024 3:06 PM EST [facility] MEDICINE PROGRESS NOTE Assessment & Plan [...] shortness of breath. Objective Vitals: 11/22/24 1550 11/22/24199911/22/24 2130 11/22/24 2248 BP: (!) 107/53 131/68 [...] MD 11/23/2024 3:06 PM * Milan Vale, [employer] - 11/23/2024 2:03 PM EST Physical Therapy [...] level of independence with functional mobility. Current [facility] Basic Mobility Score: (P) 18 Rehab [...] get their dollars ready Flowsheet Data 11/23/24 5243 Physical Therapy Time and Intention PT Follow-Up Visit follow up treatment Mode of Treatment physical therapy Patient Effort good Symptoms Noted During/After Treatment none General Information Patient Profile Reviewed yes Patient/Family/Caregiver Comments/Observations tell the ladies to get their dollars ready General Observations of Patient Pt up in chair upon arrival, RN in room. Ampushield and sand caster apprentice inplace. Both agreeable for tx Existing Precautions/Restrictions [...] Progressive Mobility Progressive Mobility Level Achieved Ambulation [facility] Basic Mobility Turning from your back [...] Climbing 3-5 steps with a railing? 1 [facility] Basic Mobility Score 18 Therapy Assessment/Plan [...] Genao Date 11/23/2024 Assessment & Plan Mr. Bals Genao is a 63-year-old gentleman with past [...] c/w Jardiance - regarding the question of long term PICC for Abx, patient high risk for PICC and proline placed instead on 11/19/24 - Patient should follow up with his outpatient driller operator on discharge and get repeat lab [...] found for: TACROLIMUS No results found for: [id number] , TOTVOL , CRCLR , PERIOD No results found for: IRON , TIBC , IRONSAT , UIBC Lab Results Component Value Date BILITOT 0.2 11/17/2024 AST 24 11/17/2024 Medications Medication/MAR Report: Medications Scheduled Medication Ordered Dose/Rate, Route, Frequency Last Action amiODARONE (PACERONE) tablet 200 mg 200 mg, PO, Daily Given, 200 mg at 11/22 0821 amLODIPine (NORVASC) tablet 5 mg 5 mg, PO, Daily Given, 5 mg at 11/22 0822 aspirin enteric coated (ECOTRIN LOW STRENGTH) tablet [...] Q8H JU[facility]ON Given, 5,000 Units at 11/23 022 insulin glargine (LANtus/SEMGLEE) 100 units/mL injection 10 [...] PO, Daily Given, 17 g at 11/22 0822 [Provider Held] pravastatin (PRAVACHOL) tablet 20 mg [...] PO, TID Given, 100 mg at 11/22 225 senna-docusate (SENNA-S) 8.6-50 MG tablet 2 tablet 2 tablet, PO, BID Given, 2 tablet at 11/22 225 thiamine mononitrate (VITAMIN B-1) tablet 200 mg [...] Sign: Isabel Lee PA-C 11/23/2024 7:24 AM [facility] Nephrology Office [phone] Associated attestation - Anmol Reynoso MD - [...] - Patient can follow-up with his outpatient driller operator upon discharge. Sign: Anmol Reynoso MD 11/23/2024 2:54 PM * Luz Escobedo RN - 11/22/2024 2:40 PM EST Attached media from the original note were not included. Micra AV leadless Pacemaker evaluation completed on 0. Per patient request and verbal order SharronSHUBHAM Pitts: LRL increased from 50 bpm to 60 bpm. Presenting rhythm: AM/CARDIOGRAPH OPERATOR @ 62 bpm. Underlying rhythm: CHB. AM/CARDIOGRAPH OPERATOR pacing 81%, with total V-pacing 100%. Battery and testing results evaluated and within normal limits. Normal leadless pacemaker function. JOSUE Alvarenga * Gianluca Calles MD - 11/22/2024 12:20 PM EST [facility] MEDICINE PROGRESS NOTE Assessment & Plan [...] level of independence with self-care tasks. Current [facility] Daily Activity Score: 16 Precautions/Restrictions: aspiration, [...] Progressive Mobility Progressive Mobility Level Achieved Ambulation [facility] Daily Activity Putting on and taking off Lower Body Clothing? 3 Bathing (including washing/rinsing/drying)? 2 Toileting (includes using toilet, bedpan, or urinal)? 2 Putting on and taking off upper body clothing? 3 Taking care of personal grooming such as brushing teeth? 3 Eating meals? 3 [facility] Daily Activity Score 16 Progress Summary [...] c/w Jardiance - regarding the question of long term PICC for Abx, patient high risk for [...] found for: TACROLIMUS No results found for: [id number] , TOTVOL , CRCLR , PERIOD No [...] Sign: Anmol Reynoso MD 11/22/2024 9:34 AM [facility] Nephrology Office [phone] * Roberto Carranza PTA - 11/22/2024 8:46 [...] level of independence with functional mobility. Current [facility] Basic Mobility Score: 16 Rehab Plan [...] is feeling better today. Flowsheet Data 11/22/24 0865 Physical Therapy Time and Intention PT Follow-Up [...] Progressive Mobility Level Achieved Transferring to Chair [facility] Basic Mobility Turning from your back [...] Climbing 3-5 steps with a railing? 1 [facility] Basic Mobility Score 16 Therapy Assessment/Plan [...] ongoing Sign: Roberto Carranza PTA * Gema Jane, MARKET EDITOR - 11/22/2024 8:18 AM EST Images from the original note were not included. [facility] PROGRESS NOTE Outpatient Digital Controls Technical Officer: [facility] Assessment & Plan Assessment 63 year old male with hypertension, hyperlipidemia, diabetes, CKD stage III, peripheral artery disease, diabetes, foot infection with osteomyelitis, complete heart block s/p dual chamber pacemaker [id number], atrial fibrillation s/p multiple ablations and cardioversions [...] by 8 bpm Confirmed by MD Claude, [facility] ([id number]) on 11/07/2024 6:25:53 PM TATIANNA [...] Compared to previous outside study report from [facility] on 08/05/2024, Mitral and tricuspid regurgitation were not previously reported. Recommend transesophageal echocardiogram if clinically indicated. Brain MRI 11/12/2024 No acute intracranial findings or suspicious intracranial lesions. No septic emboli. All additional appropriate imaging studies within the past 24 hours reviewed - images reviewed and independently interpreted. Sign Gema Jane APRN [facility] [place] 11/22/2024 8:19 AM * Jose Adair MD [...] found for: TACROLIMUS No results found for: [id number] , TOTVOL , CRCLR , PERIOD No results found for: IRON , TIBC , IRONSAT , UIBC Lab Results Component Value Date BILITOT 0.2 11/17/2024 AST 24 11/17/2024 Sign: Jose Adair MD 11/21/2024 2:23 PM * Gianluca Calles MD - 11/21/2024 12:02 PM EST [facility] MEDICINE PROGRESS NOTE Assessment & Plan [...] Calles MD - 11/20/2024 11:43 AM EST [facility] MEDICINE PROGRESS NOTE Assessment & Plan [...] Calles MD 11/20/2024 11:44 AM * Elsy Coronel APRN - 11/20/2024 9:23 AM EST Inpatient Nephrology [...] found for: TACROLIMUS No results found for: [id number] , TOTVOL , CRCLR , PERIOD No results found for: IRON , TIBC , IRONSAT , UIBC Lab Results Component Value Date BILITOT 0.2 11/17/2024 AST 24 11/17/2024 Signed: Elsy Coronel APRN 11/20/2024 9:23 AM Associated attestation - Jose Adair MD - 11/20/2024 6:31 PM EST ATTESTATION: This encounter was done in conjunction with [employer]. I provided the substantive portion of thevisit [...] Calles MD - 11/19/2024 2:22 PM EST [facility] MEDICINE PROGRESS NOTE Assessment & Plan [...] from the original note were not included. [facility] INFECTIOUS DISEASE Consult progress Note Name: Blas [...] while on IV antibiotics. Fax results to [phone] 4. Patient will need to be scheduled for repeat TATIANNA end of November Patient would like to follow-up with infectious disease close to home. I have communicated with Dr. Saritha Coffey office (infectious disease) at [phone]. She stated that this patient is very complicated for [facility] and she will not be following this patient He can follow-up with me in my office in 3 to 4 weeks. I would recommend that he be scheduled for repeat TATIANNA end november at here at [facility] Current antibiotic/day of therapy: Anti-infectives (From admission, [...] 0849 Sign Ena Mtz MD, FACP, CWSP [facility] Infectious Diseases Available via BookSh[employer]! SUBJECTIVE Afebrile, status post AICD extraction CURRENT [...] care and coordination of care with his zcp-sq-lodol infectious disease physician and office Of note, some information is being carried forward from prior records for informational purposes only and is being cited so that efficiency, safety and quality of this patient's care is not compromised. This report was generated using [employer] Speaking dictation software. Although every attempt has [...] left stoplight for his review and will [place] back next week to review with the patient. * Valencia Lau, MARKET EDITOR - 11/19/2024 8:02 AM EST Images from the original note were not included. [facility] PROGRESS NOTE Outpatient Digital Controls Technical Officer: [facility] Assessment & Plan Assessment 63 year old male with hypertension, hyperlipidemia, diabetes, CKD stage III, peripheral artery disease, diabetes, foot infection with osteomyelitis, complete heart block s/p dual chamber pacemaker [id number], atrial fibrillation s/p multiple ablations and cardioversions [...] injection 5,000 Units On hold since Fri11/16/2024 [id number] until manually unheld; held by Herberth Whitmore [...] by 8 bpm Confirmed by MD Claude, [facility] ([id number]) on 11/07/2024 6:25:53 PM TATIANNA [...] Compared to previous outside study report from [facility] on 08/05/2024, Mitral and tricuspid regurgitation were not previously reported. Recommend transesophageal echocardiogram if clinically indicated. Brain MRI 11/12/2024 No acute intracranial findings or suspicious intracranial lesions. No septic emboli. All additional appropriate imaging studies within the past 24 hours reviewed - images reviewed and independently interpreted. Sign Valencia Lau APRN [facility] [place] 11/19/2024 8:54 AM * Lela Amor MD [...] interrogation ordered for post- OP. Presenting rhythm: AM-CARDIOGRAPH OPERATOR @ 69 bpm. Underlying rhythm: No ventricular response greater than 40 bpm. AM-CARDIOGRAPH OPERATOR @ 84.8%. Battery and device parameters [...] following is my assessment: Reason For Order: Prestressed Concrete Laborer Orders Ordered Cardiac monitoring / telemetry Until discontinued Question Answer Comment Clinical Indications For Cardiac Monitoring Cardiac (Rhythm Related) Rhythm related indications Post EP Procedure (Ablation, PPM, ICD) 11/17/24 2907 Cardiac monitoring / telemetry Until discontinued Question: Clinical Indications For Cardiac Monitoring Answer: Critical Care/NICU/PACU 11/07/24 1209 Events Noted in the Last 24 hrs: none Lela Amor MD 11/18/2024 12:12 PM * Aditi Jones PA-C - 11/18/2024 10:45 AM EST PHYSICAL MEDICINE & REHABILITATION CONSULT FOLLOW-UP NOTE Patients Name: Blas Genao : 1960 MR Number: [id number] Reason for Consultation: Rehabilitation potential Date of [...] support, tolerance to therapy and plan for assisted antibiotics. Will follow progress with therapy. Sleep: [...] tablet 975 mg 975 mg Oral Q6H [facility] Corbin Lamb MARKET EDITOR 975 mg at 026 acetaminophen (TYLENOL) tablet 975 mg 975 mg Oral Q6H PRN Corbin Lamb MARKET EDITOR amiODARONE (PACERONE) tablet 200 mg 200 mg Oral Daily Corbin Lamb MARKET EDITOR 200 mg at 11/18/24 1030 amLODIPine (NORVASC) tablet 10 mg 10 mg Oral Daily Corbin Adonis, MARKET EDITOR 10 mg at 11/18/24 1029 benzocaine-menthol (CHLORASEPTIC) 6-10 MG lozenge 1 lozenge 1 lozenge Mouth/Throat Q2H PRN Baldomero Hinds MARKET EDITOR bisacodyl (DULCOLAX) suppository 10 mg 10 mg Rectal Daily PRN Corbin Lamb APRN bumetanide (BUMEX) injection 1 mg 1 mg Intravenous Q24H Corbin Lamb MARKET EDITOR 1 mg at 11/18/24 1103 buPROPion (WELLBUTRIN SR) 12 hr tablet 150 mg 150 mg Oral BID Corbin Lamb MARKET EDITOR 150 mg at 11/18/24 1028 calcium carbonate (TUMS) chewable tablet 1,000 mg 1,000 mg Oral Q12H PRN Corbin Lamb MARKET EDITOR calcium citrate (CALCITRATE) tablet 950 mg 950 mg Oral BID with meals Corbin Lamb MARKET EDITOR 950 mgat 11/18/24 1105 carboxymethylcellulose (REFRESH PLUS) [...] CHG application Topical Daily Corbin Lamb APRN Given at 11/18/24 1031 cholecalciferol tablet 2,000 Units 2,000 Units Oral Daily Corbin Lamb, MARKET EDITOR 2,000 Units at 11/18/24 1103 cyanocobalamin (VITAMIN B-12) tablet 2,500 mcg 2,500 mcg Oral Daily Corbin Lamb MARKET EDITOR 2,500 mcg at 11/18/24 1027 DAPTOmycin (CUBICIN) 975 mg in sodium chloride (NS) 0.9 % 50 mL IVPB 10 mg/kg (Adjusted) Intravenous Q24H Corbin Lamb MARKET EDITOR 0 mL/hr at 11/16/24 1712 975 mg at 11/17/24 1420 donepezil (ARICEPT) tablet 10 mg 10 mg Oral QAM Corbin Lamb MARKET EDITOR 10 mg at 11/18/24 1105 [Provider Held] empagliflozin (JARDIANCE) 25 mg 25 mg Oral Daily Corbin Lamb MARKET EDITOR 25 mg at 11/04/24 0756 folic acid (FOLVITE) tablet 1 mg 1 mg Oral Daily Corbin Lamb MARKET EDITOR 1 mg at 11/18/24 1028 [Provider Held] glimepiride (AMARYL) tablet 2 mg 2 mg Oral Daily with breakfast Corbin Lamb MARKET EDITOR 2 mg at 11/04/24 0757 [Provider Held] heparin (porcine) 5000 unit/mL injection 5,000 Units 5,000 Units Subcutaneous Q8H [facility] Corbin Lamb, MARKET EDITOR 5,000 Units at 11/16/24 1714 HYDROmorphone (DILAUDID) tablet 2 mg 2 mg Oral Q3H PRN Corbin Lamb MARKET EDITOR 2 mg at 11/18/24 1030 HYDROmorphone (DILAUDID) tablet 4 mg 4 mg Oral Q3H PRN Corbin Lamb MARKET EDITOR 4 mg at 11/16/24 2213 insulin glargine (LANtus/SEMGLEE) 100 units/mL injection 10 Units 10 Units Subcutaneous Daily Corbin Lamb MARKET EDITOR 10 Units at 11/18/24 1032 insulin lispro (HumaLOG/ADMELOG) 100 units/mL injection 1-6 Units 1-6 Units Subcutaneous TID with meals Corbin Lamb MARKET EDITOR 3 Units at 11/18/24 1232 insulin lispro (HumaLOG/ADMELOG) 100 units/mL injection 3 Units 3 Units Subcutaneous TID with mealsCorbin Lamb MARKET EDITOR 3 Units at 11/18/24 1232 ipratropium-albuterol (DUONEB) 0.5-2.5 mg/3 mL nebulizer solution 3 mL 3 mL Nebulization Q2H PRN Corbin Lamb, MARKET EDITOR 3 mL at 11/07/24 1025 lactulose (ENULOSE) 10 gm/15 mL solution 20 g 20 g Oral Q4H PRN Corbin Lamb MARKET EDITOR melatonin tablet 3 mg 3 mg Oral Nightly PRN Coribn Lamb MARKET EDITOR 3 mg at 11/16/24 2215 methocarbamol (ROBAXIN) tablet 1,000 mg 1,000 mg Oral 4x Daily Corbin Lamb, MARKET EDITOR 1,000 mg at 11/18/24 1105 metoPROLOL TARTRATE (LOPRESSOR) tablet 50 mg 50 mg Oral BID Corbin Lamb, MARKET EDITOR 50 mg at 11/18/24 1031 multivitamin with minerals tablet 1 tablet 1 tablet Oral Daily Corbin Lamb, MARKET EDITOR 1 tablet at 11/18/24 1028 naloxone (NARCAN) 0.4 mg/mL injection 0.4 mg 0.4 mg Intravenous Q5 Min PRN Corbin Adonis, MARKET EDITOR naloxone (NARCAN) 0.4 mg/mL injection 0.4 mg 0.4 mg Intravenous Q5 Min PRN Corbin Adonis, MARKET EDITOR nicotine (NICODERM CQ) 21 MG/24HR patch 1 patch 1 patch Transdermal Daily Corbin Adonis, MARKET EDITOR 1 patch at 11/18/24 1030 ondansetron (ZOFRAN) injection 4 mg 4 mg Intravenous Q6H PRN Corbin Adonis, MARKET EDITOR 4 mg at 11/17/24 1639 PANTOprazole (PROTONIX) EC tablet 40 mg 40 mg Oral Daily Corbin Adonis, MARKET EDITOR 40 mg at 11/18/24 1029 polyethylene glycol (miraLAx) packet 17 g 17 g Oral Daily Corbin Adonis, MARKET EDITOR 17 g at 11/18/24 1040 [Provider Held] pravastatin (PRAVACHOL) tablet 20 mg 20 mg Oral Daily Corbin Adonis, MARKET EDITOR pregabalin (LYRICA) capsule 100 mg 100 mg Oral TID Corbin Adonis, MARKET EDITOR 100 mg at 11/18/24 1105 senna-docusate (SENNA-S) 8.6-50 MG tablet 2 tablet 2 tablet Oral BID Corbin Adonis, MARKET EDITOR 2 tablet at 11/18/24 1032 thiamine mononitrate (VITAMIN B-1) tablet 200 mg 200 mg Oral Daily Corbin Adonis, MARKET EDITOR 200 mg at11/18/24 1031 Physical Exam: Vitals: [...] S/p Left BKA with ampushield and stump 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 Presenting rhythm: AM-CARDIOGRAPH OPERATOR @ 69 bpm. Underlying rhythm: No ventricular response greater than 40 bpm. AM-CARDIOGRAPH OPERATOR @ 84.8%. Battery and device parameters [...] from the original note were not included. [facility] INFECTIOUS DISEASE Consult progress Note Name: Blas [...] try to reach Dr. Saritha Coffey at [facility] tomorrow Current antibiotic/day of therapy: Anti-infectives (From [...] 0849 Sign Ena Mtz MD, FACP, CWSP [facility] Infectious Diseases Available via [employer]! SUBJECTIVE Afebrile, status post AICD extraction CURRENT [...] not compromised. This report was generated using [employer] Naturally Speaking dictation software. Although every attempt has been made by the provider to proofread this document, occasional misspellings and typographical errors may still be present. * Valencia Lau APRN - 11/18/2024 8:48 AM EST Images from the original note were not included. [facility] PROGRESS NOTE Outpatient Digital Controls Technical Officer: [facility] Assessment & Plan Assessment 63 year old male with hypertension, hyperlipidemia, diabetes, CKD stage III, peripheral artery disease, diabetes, foot infection with osteomyelitis, complete heart block s/p dual chamber pacemaker [id number], atrial fibrillation s/p multiple ablations and cardioversions [...] with meals Given, 950 mg at 11/17 08 chlorhexidine gluconate 2 % wipes - urethral [...] injection 5,000 Units On hold since Fri11/16/2024 [id number] until manually unheld; held by Herberth Whitmore [...] by 8 bpm Confirmed by MD Claude, [facility] ([id number]) on 11/07/2024 6:25:53 PM TATIANNA [...] Compared to previous outside study report from [facility] on 08/05/2024, Mitral and tricuspid regurgitation were not previously reported. Recommend transesophageal echocardiogram if clinically indicated. Brain MRI 11/12/2024 No acute intracranial findings or suspicious intracranial lesions. No septic emboli. All additional appropriate imaging studies within the past 24 hours reviewed - images reviewed and independently interpreted. Sign Valencia Lau APRN [facility] [place] 11/18/2024 8:48 AM * Cristina Rodriguez APRN [...] Department Center 12/07/2024 1:30 PM ROOM, ICD[facility]PAC[facility] Ar[facility] Current Facility-Administered Medications: acetaminophen (TYLENOL) tablet 975 mg, 975 mg, Oral, Q6H JUDSON, Corbin Adonis, MARKET EDITOR, 650 mg at 11/18/24 0305 acetaminophen (TYLENOL) tablet 975 mg, 975 mg, Oral, Q6H PRN, Corbin Adonis, MARKET EDITOR amiODARONE (PACERONE) tablet 200 mg, 200 mg, Oral, Daily, Corbin Adonis, MARKET EDITOR, 200 mg at 11/17/24 0813 amLODIPine (NORVASC) tablet 10 mg, 10 mg, Oral, Daily, Corbin Adonis, MARKET EDITOR, 10 mg at 11/17/24 0816 benzocaine-menthol (CHLORASEPTIC) 6-10 MG lozenge 1 lozenge, 1 lozenge, Mouth/Throat, Q2H PRN, Gretel Hinds, MARKET EDITOR bisacodyl (DULCOLAX) suppository 10 mg, 10 mg, Rectal, Daily PRN, Corbin Lamb, MARKET EDITOR bumetanide (BUMEX) injection 1 mg, 1 mg, Intravenous, Q24H, Corbin Lamb, MARKET EDITOR, 1 mg at 11/17/24 0813 buPROPion (WELLBUTRIN SR) 12 hr tablet 150 mg, 150 mg, Oral, BID, Corbin Adonis, MARKET EDITOR, 150 mg at11/17/24 2125 calcium carbonate (TUMS) chewable tablet 1,000 mg, 1,000 mg, Oral, Q12H PRN, Corbin Lamb, MARKET EDITOR calcium citrate (CALCITRATE) tablet 950 mg, 950 mg, Oral, BID with meals, Corbin Adonis, MARKET EDITOR, 950 mg at 11/17/24 0813 carboxymethylcellulose (REFRESH PLUS) 0.5 % ophthalmic solution 2 drop, 2 drop, Each Eye, Q2H PRN, Gretel Hinds, MARKET EDITOR chlorhexidine gluconate 2 % wipes - urethral catheter CHG application, , Topical, Daily, Corbin Lamb, MARKET EDITOR cholecalciferol tablet 2,000 Units, 2,000 Units, Oral, Daily, Corbin Adonis, MARKET EDITOR, 2,000 Units at 11/17/24 0815 cyanocobalamin (VITAMIN B-12) tablet 2,500 mcg, 2,500 mcg, Oral, Daily, Corbin Adonis, MARKET EDITOR, 2,500 mcg at 11/17/24 0814 DAPTOmycin (CUBICIN) 975 mg in sodium chloride (NS) 0.9 % 50 mL IVPB, 10 mg/kg (Adjusted), Intravenous, Q24H, Corbin Lamb, MARKET EDITOR, Last Rate: 0 mL/hr at 11/16/24 1712, 975 mg at 11/17/24 1420 donepezil (ARICEPT) tablet 10 mg, 10 mg, Oral, QAM, Corbin Adonis, MARKET EDITOR, 10 mg at 11/17/24 0816 [Provider Held] empagliflozin (JARDIANCE) 25 mg, 25 mg, Oral, Daily, Corbin Adonis, MARKET EDITOR, 25 mg at 11/04/24 0756 folic acid (FOLVITE) tablet 1 mg, 1 mg, Oral, Daily, Corbin Adonis, MARKET EDITOR, 1 mg at 11/17/24 0813 [Provider Held] glimepiride (AMARYL) tablet 2 mg, 2 mg, Oral, Daily with breakfast, Corbin Lamb, MARKET EDITOR, 2 mg at 11/04/24 0757 [Provider Held] heparin (porcine) 5000 unit/mL injection 5,000 Units, 5,000 Units, Subcutaneous, Q8H JUDSON, Corbindenise Lamb, MARKET EDITOR, 5,000 Units at 11/16/24 1714 HYDROmorphone (DILAUDID) tablet 2 mg, 2 mg, Oral, Q3H PRN, Corbin Adonis, MARKET EDITOR, 2 mg at 540 HYDROmorphone (DILAUDID) tablet 4 mg, 4 mg, Oral, Q3H PRN, Corbin Adonis, MARKET EDITOR, 4 mg at 213 insulin glargine (LANtus/SEMGLEE) 100 units/mL injection 10 Units, 10 Units, Subcutaneous, Daily, Corbin Lamb, MARKET EDITOR insulin lispro (HumaLOG/ADMELOG) 100 units/mL injection 1-6 Units, 1-6 Units, Subcutaneous, TID with meals, Corbin Adonis, MARKET EDITOR, 1 Units at 11/17/24 1856 insulin lispro (HumaLOG/ADMELOG) 100 units/mL injection 3 Units, 3 Units, Subcutaneous, TID with meals, Corbin Lamb MARKET EDITOR, 3 Units at 11/17/24 1213 ipratropium-albuterol (DUONEB) 0.5-2.5 mg/3 mL nebulizer solution 3 mL, 3 mL, Nebulization, Q2H PRN, Corbin Lamb, MARKET EDITOR, 3 mL at 11/07/24 1025 lactulose (ENULOSE) 10 gm/15 mL solution 20 g, 20 g, Oral, Q4H PRN, Corbin Lealese, MARKET EDITOR melatonin tablet 3 mg, 3 mg, Oral, Nightly PRN, Corbin Adonis, MARKET EDITOR, 3 mg at 11/16/242214 methocarbamol (ROBAXIN) tablet 1,000 mg, 1,000 mg, Oral, 4x Daily, Corbin Adonis, MARKET EDITOR, 1,000 mgat 11/17/242125 metoPROLOL TARTRATE (LOPRESSOR) tablet 50 mg, 50 mg, Oral, BID, Corbin Adonis, MARKET EDITOR, 50 mg at 11/17/242123 multivitamin with minerals tablet 1 tablet, 1 tablet, Oral, Daily, Corbin Adonis, MARKET EDITOR, 1 tabletat 11/17/24 0816 naloxone (NARCAN) 0.4 mg/mL injection 0.4 mg, 0.4 mg, Intravenous, Q5 Min PRN, Corbin Adonis, MARKET EDITOR naloxone (NARCAN) 0.4 mg/mL injection 0.4 mg, 0.4 mg, Intravenous, Q5 Min PRN, Corbin Adonis, MARKET EDITOR nicotine (NICODERM CQ) 21 MG/24HR patch 1 patch, 1 patch, Transdermal, Daily, Corbin Adonis, MARKET EDITOR, 1 patch at 11/17/24 0816 ondansetron (ZOFRAN) injection 4 mg, 4 mg, Intravenous, Q6H PRN, Corbin Adonis, MARKET EDITOR, 4 mg at 11/17/24 1639 PANTOprazole (PROTONIX) EC tablet 40 mg, 40 mg, Oral, Daily, Corbin Adonis, MARKET EDITOR, 40 mg at 11/17/24 0815 polyethylene glycol (miraLAx) packet 17 g, 17 g, Oral, Daily, Corbin Adonis, MARKET EDITOR, 17 g at 11/17/24 1212 [Provider Held] pravastatin (PRAVACHOL) tablet 20 mg, 20 mg, Oral, Daily, Corbin Adonis, MARKET EDITOR pregabalin (LYRICA) capsule 100 mg, 100 mg, Oral, TID, Corbin Adonis, MARKET EDITOR, 100 mg at 11/17/242123 senna-docusate (SENNA-S) 8.6-50 MG tablet 2 tablet, 2 tablet, Oral, BID, Corbin Adonis, MARKET EDITOR, 2 tablet at 11/17/242124 thiamine mononitrate (VITAMIN B-1) tablet 200 mg, 200 mg, Oral, Daily, Corbin Adonis, MARKET EDITOR, 200 mg at 11/17/24 0814 Vitals: 11/18/24 [...] (218 lb 11.1 oz) Height: Cristina Rodriguez, MARKET EDITOR 11/18/24 9:18 AM Addendum: From an EP perspective, he can re-start his Eliquis today. Cristina Gomezneal, SHUBHAM 11/18/24 9:19 AM * Sri Pean RN - 11/18/2024 8:25 AM EST Attached media from the original note were not included. Pacemaker evaluation completed on B10E, device interrogation ordered for post- OP. Presenting rhythm: AM-CARDIOGRAPH OPERATOR @ 69 bpm. Underlying rhythm: No ventricular response greater than 40 bpm. AM-CARDIOGRAPH OPERATOR @ 84.8%. Battery and device parameters evaluated and within normal limits. Normal pacemaker function. Micra pacemakers do not record events. Sri Pena RN * Katy Rodgers, YOVANNY - 11/18/2024 8:07 AM EST Occupational Therapy [...] level of independence with self-care tasks. Current [facility] Daily Activity Score: 16 Precautions/Restrictions: fall, aspiration, pacemaker, isolation: contact, weight bearing (NWBing to L residual limb with sand caster apprentice and nutmeggar in place, skin) Rehab Plan [...] bearing (NWBing to L residual limb with sand caster apprentice and nutmeggar in place, skin) Pain Assessment [...] Progressive Mobility Level Achieved Edge of Bed [facility] Daily Activity Putting on and taking off Lower Body Clothing? 3 Bathing (including washing/rinsing/drying)? 2 Toileting (includes using toilet, bedpan, or urinal)? 2 Putting on and taking off upper body clothing? 3 Taking care of personal grooming such as brushing teeth? 3 Eating meals? 3 [facility] Daily Activity Score 16 Therapy Assessment/Plan [...] OT) goal ongoing Bathing Goal 1 (OT) [place] Level/Cues Needed (Bathing Goal 1, OT) minimum [...] Frame (Dressing Goal 1, OT) 1 week [place]/Cues Needed (Dressing Goal 1, OT) minimum assist (75% or more patient effort) Toileting Goal 1 (OT) Activity/Device (Toileting Goal 1, OT) toileting skills, all Progress/Outcome (Toileting Goal 1, OT) goal revised this date Time Frame (Toileting Goal 1, OT) 1 week [place] Level/Cues Needed (Toileting Goal 1, OT) minimum assist (75% or more patient effort) Sign: Katy Rodgers OT * Valencia Lau APRN - 11/17/2024 10:51 AM EST Images from the original note were not included. [facility] PROGRESS NOTE Outpatient Digital Controls Technical Officer: [facility] Assessment & Plan Assessment 63 year old male with hypertension, hyperlipidemia, diabetes, CKD stage III, peripheral artery disease, diabetes, foot infection with osteomyelitis, complete heart block s/p dual chamber pacemaker [id number], atrial fibrillation s/p multiple ablations and cardioversions [...] Bumex 1 mg daily today -BNP downtrending [phone] -Closely monitor renal function and electrolytes with [...] -Pacer interrogation 11/11/24: Presenting rhythm: AP / CARDIOGRAPH OPERATOR @ 60 bpm. Underlying rhythm: SB [...] 5,000 Units On hold since yesterday at 2000 until manually unheld; held by Herberth Whitmore Reason: Pre-procedure On hold since yesterday at 2000 until manually unheld (Needs Review) [...] PO, Daily Given, 40 mg at 11/17 0715 polyethylene glycol (miraLAx) packet 17 g 17 [...] by 8 bpm Confirmed by MD Claude, [facility] ([id number]) on 11/07/2024 6:25:53 PM TATIANNA [...] Compared to previous outside study report from [facility] on 08/05/2024, Mitral and tricuspid regurgitation were not previously reported. Recommend transesophageal echocardiogram if clinically indicated. Brain MRI 11/12/2024 No acute intracranial findings or suspicious intracranial lesions. No septic emboli. All additional appropriate imaging studies within the past 24 hours reviewed - images reviewed and independently interpreted. Sign Valencia Lau APRN [facility] [place] 11/17/2024 10:51 AM Associated attestation - Devon [...] Powers MD - 11/17/2024 10:06 AM EST [facility] PROGRESS NOTE Assessment & Plan [...] Powers MD 11/17/2024 10:06 AM * Roberto Blanca Dillon, [employer] - 11/17/2024 9:36 AM EST Physical Therapy Progress Note Precautions/Restrictions: fall, aspiration, other (see comments) (Skin) Assessment Summary: Patient seen for PT follow up. L residual limb sand caster apprentice and nutmegger donned. Performed bed mobility and [...] level of independence with functional mobility. Current [facility] Basic Mobility Score: 16 Rehab Plan [...] Progressive Mobility Level Achieved Transferring to Chair [facility] Basic Mobility Turning from your back [...] Climbing 3-5 steps with a railing? 1 [facility] Basic Mobility Score 16 Therapy Assessment/Plan [...] from the original note were not included. [facility] INFECTIOUS DISEASE Consult progress Note Name: Blas [...] 0849 Sign Ena Mtz MD, FACP, CWSP [facility] Infectious Diseases Available via [employer]! SUBJECTIVE Afebrile. No new complaints Feels better. On room air CURRENT MEDICATIONS: Reviewed OBJECTIVE PHYSICAL EXAMINATION: Vitals: 11/16/24 1527 11/16/24 1950 11/16/24 2115 11/17/24 0629 BP: (!) 107/58 (!) 123/57 (!) 110/57 BP Location: Right arm Right arm Right arm Patient Position: Lying Sitting Lying Pulse: 60 65 76 61 Resp: 18 Temp: 96.9 ??F (36.1 ??C) 96.6 [...] not compromised. This report was generated using [employer] Speaking dictation software. Although every attempt has [...] were not included. Coverage for Dr. Mtz [facility] ID Progress Note Name: Blas Genao Age: [...] 11/05 -11/06 ,11/07,blood cultures = NGTD -11/04 (22) bld cx:MRSA -11/02(10/31) blood cultures: MRSA, Enterococcus [...] Soft, nontender Extremities: Left BKA stump with sand caster apprentice garment, and ampul sheIld LABORATORY AND DIAGNOSTIC [...] was performed in office at [facility] and images reviewed by orthopedic [...] not compromised This report was generated using [employer] dictation software. Although every attempt has been made by the provider to proofread this document, occasional misspellings and typographical errors Sign Chris Taylor MD, [facility], [facility] Infectious Diseases Available via [employer] 11/16/2024 11:27 AM * Maddison Villalpando MD - 11/15/2024 5:16 PM EST [facility] PROGRESS NOTE Assessment & Plan [...] were not included. Coverage for Dr. Mtz [facility] ID Progress Note Name: Blas Genao Age: [...] faecium -10/27: Left foot wound culture at [place]: MRSA, Enterococcus faecalis, VRE, Corynebacterium species and [...] was performed in office at [facility] and images reviewed by orthopedic [...] injection 5,000 Units 5,000 Units Subcutaneous Q8H [facility] Luis Degroot MD 5,000 Units at 11/15/24 0851 HYDROmorphone (DILAUDID) tablet 2 mg 2 mg Oral Q3H PRN Luis Degroot MD 2 mg at 11/11/24 1009 HYDROmorphone (DILAUDID) tablet 4 mg 4 mg Oral Q3H PRN Luis Degroot MD 4 mg at 11/15/24 0852 insulin lispro (HumaLOG/ADMELOG) 100 units/mL injection 1-6 Units 1-6 Units Subcutaneous TID with meals Kamal Kwasi, MD 5 Units at 11/15/24 1150 [Provider [...] 20 mg 20 mg Oral Daily Nani Rodham, PA-C pregabalin (LYRICA) capsule 150 mg 150 [...] not compromised This report was generated using [employer] Speaking dictation software. Although every attempt has been made by the provider to proofread this document, occasional misspellings and typographical errors Sign Chris Taylor MD, [facility], [facility] Infectious Diseases Available via [employer] 11/15/2024 1:10 PM * Devon Lazo MD - 11/15/2024 1:00 PM EST Images from the original note were not included. [facility] PROGRESS NOTE Outpatient Digital Controls Technical Officer: Assessment & Plan Assessment 63 year old male with hypertension, hyperlipidemia, diabetes, CKD stage III, peripheral artery disease, diabetes, foot infection with osteomyelitis, complete heart block s/p dual chamber pacemaker [id number], atrial fibrillation s/p multiple ablations and cardioversions [...] TOP, Daily Given, 1 each at 11/12 0946 cholecalciferol tablet 2,000 Units 2,000 Units, PO, [...] 4x Daily Given, 1,000 mg at 11/15 849 metoPROLOL TARTRATE (LOPRESSOR) tablet 50 mg 50 mg, PO, BID Given, 50 mg at 11/15 0750 multivitamin with minerals tablet 1 tablet 1 [...] PO, BID Given, 2 tablet at 11/15 0749 thiamine mononitrate (VITAMIN B-1) tablet 200 mg [...] by 8 bpm Confirmed by MD Claude, [facility] ([id number]) on 11/07/2024 6:25:53 PM All additional appropriate imaging studies within the past 24 hours reviewed - images reviewed and independently interpreted. Sign Devon Lazo MD [facility] [place] 11/15/2024 1:00 PM * Elida Berger OT [...] Patient is highly motivated to return to [facility] and reports good family support and DME. Pt is an excellent rehab candidate and will benefit from3 hours of intensive daily therapy with the potential to return home and reintegrate back [facility] Progress Towards Goals: progress toward functional goals is good Outcome Measures: The Activity Measure for Post-Acute Care (AM-PAC) Daily Activity Inpatient Short Form (6-clicks) zakiya standardized measure used to quantify deficits in self-care. The total score of the measure ranges from 6-24. A higher score indicates a higher level of independence with self-care tasks. Current [facility] Daily Activity Score: 17 Precautions/Restrictions: fall, [...] Progressive Mobility Level Achieved Transferring to Chair [facility] Daily Activity Putting on and taking off Lower Body Clothing? 3 Bathing (including washing/rinsing/drying)? 2 Toileting (includes using toilet, bedpan, or urinal)? 2 Putting on and taking off upper body clothing? 3 Taking care of personal grooming such as brushing teeth? 3 Eating meals? 4 [facility] Daily Activity Score 17 Therapy Assessment/Plan [...] Villalpando MD - 11/14/2024 2:48 PM EST [facility] PROGRESS NOTE Assessment & Plan [...] Villalpando MD - 11/13/2024 3:26 PM EST [facility] PROGRESS NOTE Assessment & Plan [...] from the original note were not included. [facility] Inpatient Progress Note Date of admission:11/02/2024 Today's date: 11/13/2024 Primary Digital Controls Technical Officer: [facility] Assessment & Plan 63 year old male with hypertension, hyperlipidemia, diabetes, CKD stage III, peripheral artery disease, diabetes, foot infection with osteomyelitis, complete heart block s/p dual chamber pacemaker [id number], atrial fibrillation s/p multiple ablations and cardioversions [...] -Pacer interrogation 11/11/24: Presenting rhythm: AP / CARDIOGRAPH OPERATOR @ 60 bpm. Underlying rhythm: SB [...] pain, dizziness, palpitations, syncope Objective: Telemetry Reviewed: CARDIOGRAPH OPERATOR 60 Last Vitals Pulse:63,Resp:18,BP:116/60,SpO2:96 %,Weight:120 kg [...] Q6H JUDSON Given, 975 mg at 11/13 31 amiODARONE (PACERONE) tablet 200 mg 200 mg, [...] Compared to previous outside study report from [facility] on 08/05/2024, Mitral and tricuspid regurgitation [...] Villalpando MD - 11/12/2024 4:39 PM EST [facility] PROGRESS NOTE Assessment & Plan [...] Danielle MD - 11/12/2024 3:33 PM EST [facility] ID Progress Note Length of Stay: 10 Follow up for polymicrobial bacteremia with MRSA, Enterococcus; left foot infection status post BKA; pacemaker infection Antibiotics/antivirals/immunomodulators: Daptomycin (2-) Ceftaroline (11/05-) Meropenem (11/03-11/05) Aztreonam (11/07-11/10) Assessment [...] final timing Time spent on chart/literature review, [id number] discussion and exam with patient, and documentation: [...] Resolved Problems: Noemí Danielle MD Available on [employer] 11/12/2024 3:33 PM * POOJA Allen - 11/12/2024 11:59 AM EST Images from the original note were not included. [facility] Progress Note Date of admission:11/02/2024 Today's date: 11/12/2024 Primary Digital Controls Technical Officer: [facility] Assessment & Plan 63 year old male with hypertension, hyperlipidemia, diabetes, CKD stage III, peripheral artery disease, diabetes, foot infection with osteomyelitis, complete heart block s/p dual chamber pacemaker [id number], atrial fibrillation s/p multiple ablations and cardioversions [...] Pacer eval 11/11/24: Presenting rhythm: AP / CARDIOGRAPH OPERATOR @ 60 bpm. Underlying rhythm: SB [...] No lightheadedness or dizziness. Objective: Telemetry Reviewed: CARDIOGRAPH OPERATOR 60 Last Vitals Pulse:67,Resp:18,BP:(!) 113/53,SpO2:(!) 91 [...] PO, Daily Given, 1 tablet at 11/12 0836 nicotine (NICODERM CQ) 21 MG/24HR patch 1 patch 1 patch, TD, Daily Patch Applied, 1 patch at 11/12 0830 PANTOprazole (PROTONIX) EC tablet 40 mg 40 mg, PO, Daily Given, 40 mg at 11/12 0937 [Provider Held] pravastatin (PRAVACHOL) tablet 20 mg [...] Compared to previous outside study report from [facility] on 08/05/2024, Mitral and tricuspid regurgitation [...] PM EST I agree with the pharmacy stock clerk note. * Elida Berger, OT - 11/12/2024 [...] Patient is highly motivated to return to [facility] and reports good family support [...] level of independence with self-care tasks. Current [facility] Daily Activity Score: 16 Precautions/Restrictions: fall, [...] Progressive Mobility Level Achieved Transferring to Chair [facility] Daily Activity Putting on and taking off Lower Body Clothing? 2 Bathing (including washing/rinsing/drying)? 2 Toileting (includes using toilet, bedpan, or urinal)? 2 Putting on and taking off upper body clothing? 3 Taking care of personal grooming such as brushing teeth? 3 Eating meals? 4 [facility] Daily Activity Score 16 Therapy Assessment/Plan [...] ordered for function. Presenting rhythm: AP / CARDIOGRAPH OPERATOR @ 60 bpm. Underlying rhythm: SB [...] of 40-44% and patent foramina well with [id number] shunting and moderate to severe TR MRI [...] validated and emotional support provided; nurse manager software made aware. Resources: Patient informed of the following resources and how to request it: Integrative Medicine Services available at [facility], including, Massage Therapy, and Reiki/Energy Therapy [...] were not included. Coverage for Dr. Mtz [facility] ID Progress Note Name: Blas Genao Age: [...] faecium -10/27: Left foot wound culture at [place]: MRSA, Enterococcus faecalis, VRE, Corynebacterium species and [...] nontender Left BKA stump site covered in sand caster apprentice garment and ampu sheild LABORATORY AND DIAGNOSTIC [...] was performed in office at [facility] and images reviewed by orthopedic provider. Any findings are documented within ambulatory encounter note on date of service. Current Medications: Current Facility-Administered Medications Medication Dose Route Frequency Provider Last Rate Last Admin acetaminophen (TYLENOL) tablet 975 mg 975 mg Oral Q6H [facility] Rafiq Chakraborty MD 975 mg at 02/13/25 0936 amiODARONE (PACERONE) tablet 200 mg 200 [...] 50 mL 1 mg/hr Intravenous Continuous Rafiq Chkaraborty MD 4 mL/hr at 11/11/24 0600 1 [...] 5,000 Units 5,000 Units Subcutaneous Q8H JUDSON Bach APRN 5,000 Units at 11/11/24 0625 [...] injection 1-6 Units 1-6 Units Subcutaneous Q4H [facility] POOJA Crews [Provider Held] insulin lispro [...] Rafiq Chakraborty MD 3 mg at 11/08/24 220 [Provider Held] metFORMIN (GLUCOPHAGE) tablet 500 mg [...] not compromised This report was generated using Contact [employer] Speaking dictation software. Although every attempt has been made by the provider to proofread this document, occasional misspellings and typographical errors Sign Chris [place] MD, [facility], [facility] Infectious Diseases Available via [employer] 11/11/2024 10:52 AM * Olimpia Lainez, PharmD [...] 4 mg q3h PRN for severe pain ([id number]). 1x dose of liquid dilaudid 1mg given [...] Compared to previous outside study report from [facility] on 08/05/2024, Mitral and tricuspid regurgitation [...] Pulmonary, Critical Care, and Sleep Medicine [address], [address], [place] [address] Critical Care Progress Note Assessment & Plan [...] Compared to previous outside study report from [facility] on 08/05/2024, Mitral and tricuspid regurgitation [...] Case IDs Date Procedure Surgeon Location Status [id number] 11/05/24 LEFT BELOW KNEE AMPUTATION [place] Camejo [...] mg, PO, Daily Given, 200 mg at 02/12 0905 Continuous Medication Ordered Dose/Rate, Route, Frequency [...] 3.8 CL 101 100 101 99 CO2 27 ANIONGAP 13 11 11 11 BUN [...] ruled out. This report was generated using [employer] Speaking dictation software. Although every attempt has [...] out/in endocarditis Plan -NWB, ampushield and stump sand caster apprentice -Currently on ASA BID and subcutaneous heparin- [...] redressed with xeroform, abds and applied the sand caster apprentice garment and ampu shield. Labs: Recent Labs [...] were not included. Coverage for Dr. Mtz [facility] ID Progress Note Name: Blas Genao Age: [...] faecium -10/27: Left foot wound culture at [place]: MRSA, Enterococcus faecalis, VRE, Corynebacterium species and [...] fibrillation s/p Watchman device implantation in 2017 6. AMS: Improved 7. Vision issues: Resolved [...] was performed in office at [facility] and images reviewed by orthopedic [...] 5,000 Units 5,000 Units Subcutaneous Q8H JUDSON Bach APRN 5,000 Units at 11/10/24 0550 [...] BID Rafiq Chakraborty MD 50 mg at 11/10/24911 mineral oil (FLEET OIL) enema 1 enema [...] Daily Rafiq Chakraborty MD 40 mg at 11/10/2412 polyethylene glycol (miraLAx) packet 17 g 17 [...] not compromised This report was generated using [employer] Speaking dictation software. Although every attempt has been made by the provider to proofread this document, occasional misspellings and typographical errors Sign Chris [place] MD, [facility], [facility] Infectious Diseases Available via [employer] 11/10/2024 11:34 AM * POOJA Jimenez - 11/10/2024 10:45 AM EST Images from the original note were not included. [facility] Inpatient Progress Note Date of admission:11/02/2024 Today's date: 11/10/2024 Primary Digital Controls Technical Officer: [facility] Assessment & Plan 63 year old male with hypertension, hyperlipidemia, diabetes, CKD stage III, peripheral artery disease, diabetes, foot infection with osteomyelitis, complete heart block s/p dual chamber pacemaker [id number], atrial fibrillation s/p multiple ablations and cardioversions [...] abdomen much less distended Objective: Telemetry Reviewed: CARDIOGRAPH OPERATOR 60 Last Vitals Pulse:60,Resp:17,BP:130/60,SpO2:94 %,Weight:120 kg [...] empagliflozin (JARDIANCE) 25 mg On hold since [facility] 11/04/2024 at 1503 until manually unheld; [...] Kern MDHold Reason: Pre-procedure On hold since Lennie 11/04/2024 [...] Compared to previous outside study report from [facility] on 08/05/2024, Mitral and tricuspid regurgitation [...] Continue Dilaudid 2-4 mg PO Q3h prn Fany AlexisD * Ewelina Ruiz PA-C - 11/10/2024 9:04 [...] Compared to previous outside study report from [facility] on 08/05/2024, Mitral and tricuspid regurgitation [...] PO, Daily Given, 10 mg at 11/09 0911 aspirin enteric coated (ECOTRIN LOW STRENGTH) tablet 81 mg 81 mg, PO, Q12H JUDSON Given, 81 mg at 11/09 0914 aztreonam (AZACTAM) 2 g in sodium [...] (AMARYL) tablet 2 mg On hold since [facility] 11/04/2024 at 1503 until manually unheld; [...] of Pulmonary, Critical Care, and Sleep Medicine [address] [place] [address], [address], [place] [address] Critical Care Progress Note Assessment & Plan [...] supplementation for goal sats >92% Follow-up ABG 7.38/36/ Continue diuresis DuoNeb as needed Slight worsening [...] Compared to previous outside study report from [facility] on 08/05/2024, Mitral and tricuspid regurgitation [...] the unit or at the nursing station [facility] floor where the patient is located. [...] Case IDs Date Procedure Surgeon Location Status [id number] 11/05/24 LEFT BELOW KNEE AMPUTATION [place] Camejo [...] Q12H JUDSON Given, 81 mg at 11/09 0914 aztreonam (AZACTAM) 2 g in sodium [...] ruled out. This report was generated using [employer] dictation software. Although every attempt has been [...] were not included. Coverage for Dr. Mtz [facility] ID Progress Note Name: Blas Genao Age: [...] faecium -10/27: Left foot wound culture at [place]: MRSA, Enterococcus faecalis, VRE, Corynebacterium species and [...] Soft nontender Left BKA stump site in sand caster apprentice LABORATORY AND DIAGNOSTIC DATA: Lab and imaging [...] was performed in office at [facility] and images reviewed by orthopedic [...] injection 5,000 Units 5,000 Units Subcutaneous Q8H [facility] Haven Bach APRN HYDROmorphone (DILAUDID) tablet [...] Rafiq Chakraborty MD 50 mg at 11/09/24 09 mineral oil (FLEET OIL) enema 1 [...] not compromised This report was generated using [employer] dictation software. Although every attempt has been made by the provider to proofread this document, occasional misspellings and typographical errors Sign Chris [place] MD, [facility], [facility] Infectious Diseases Available via [employer] 11/09/2024 11:55 AM * Deep Bales, PharmD [...] included. [facility] PROGRESS NOTE Outpatient Digital Controls Technical Officer: Digital Controls Technical Officer at [facility] in [place] Assessment & Plan Assessment Blas Genao is [...] Intake/Output Summary (Last 24 hours) at 11/09/2024 0900 Last data filed at 11/09/2024 0800 Gross [...] 1503 until manually unheld; held by Juaquin Kenr MDHold Reason: Pre-procedure On hold since Fri11/04/2024 [...] by 8 bpm Confirmed by MD Claude, [facility] ([id number]) on 11/07/2024 6:25:53 PM ECHO: [...] Compared to previous outside study report from [facility] on 08/05/2024, Mitral and tricuspid regurgitation were not previously reported. Recommend transesophageal echocardiogram if clinically indicated. All additional appropriate imaging studies within the past 24 hours reviewed - images reviewed and independently interpreted. Sign Gema Jane APRN [facility] [place] 11/09/2024 9:00 AM * Roberto Carranza PTA - 11/09/2024 8:40 AM EST Physical Therapy Progress Note Precautions/Restrictions: fall, isolation: contact, pacemaker, other (see comments) (NWB LLE; Skin) Assessment Summary: Patient seen for PT follow up. Performed bed mobility, transfers and sidesteps this session. Required Ax2 for mobility. Adjusted nutmegger for optimal fit and protection of residual limb. Per orders patient is to have sand caster apprentice on AAT, noted that residual limb was wrapped with srinivas wrap vs sand caster apprentice. Reached out to orthopedic PA in regards to sand caster apprentice for patient. Patient is motivated to participate [...] level of independence with functional mobility. Current [facility] Basic Mobility Score: 14 Rehab Plan [...] Progressive Mobility Progressive Mobility Level Achieved Standing [facility] Basic Mobility Turning from your back [...] Climbing 3-5 steps with a railing? 1 [facility] Basic Mobility Score 14 Therapy Assessment/Plan [...] 1, PT) goal ongoing Sign: Roberto Carranza [employer] Associated attestation - Abhinav Pope, PT - [...] level of independence with self-care tasks. Current [facility] Daily Activity Score: 15 Precautions/Restrictions: fall, [...] Progressive Mobility Level Achieved Edge of Bed [facility] Daily Activity Putting on and taking off Lower Body Clothing? 2 Bathing (including washing/rinsing/drying)? 2 Toileting (includes using toilet, bedpan, or urinal)? 1 Putting on and taking off upper body clothing? 3 Taking care of personal grooming such as brushing teeth? 3 Eating meals? 4 [facility] Daily Activity Score 15 Therapy Assessment/Plan [...] OT goal 1 Transfer Goal 1 (OT) [place] Level/Cues Needed (Transfer Goal 1, OT) minimum [...] Pulmonary, Critical Care, and Sleep Medicine [address], [address], [place] [address] Critical Care Progress Note Assessment & Plan [...] Compared to previous outside study report from [facility] on 08/05/2024, Mitral and tricuspid regurgitation [...] the unit or at the nursing station [facility] floor where the patient is located. [...] Case IDs Date Procedure Surgeon Location Status [id number] 11/05/24 LEFT BELOW KNEE AMPUTATION [place] Camejo [...] empagliflozin (JARDIANCE) 25 mg On hold since [facility] 11/04/2024 at 1503 until manually unheld; [...] ruled out. This report was generated using Contact [employer] Speaking dictation software. Although every attempt has [...] were not included. Coverage for Dr. Mtz [facility] ID Progress Note Name: Blas Genao Age: [...] (2/2) bld cx: G+ cocci in clusters -11/02(10/31) blood cultures: MRSA, Enterococcus faecalis, Enterococcus faecium -10/27: Left foot wound culture at [place]: MRSA, Enterococcus faecalis, VRE, Corynebacterium species and [...] nontender Extremities: Left BKA site-> No drain. Shelving Supervisor in place LABORATORY AND DIAGNOSTIC DATA: Lab [...] was performed in office at [facility] and images reviewed by orthopedic [...] Rafiq Chakraborty MD 2,000 Units at 11/08/24 0903 cyanocobalamin (VITAMIN B-12) tablet 2,500 mcg 2,500 mcg Oral Daily Rafiq Chakraborty MD 2,500 mcg at 11/08/24 0903 DAPTOmycin (CUBICIN) 975 mg in sodium chloride (NS) 0.9 % 50 mL IVPB 10 mg/kg (Adjusted) Intravenous Q24H Rafiq Chakraborty MD Stopped at 11/07/24 1800 glucose (GLUTOSE 15) 40 % oral gel 37.5 g 1 Tube Oral Q15 Min PRN Kayla Orona APRN Or glucose (GLUTOSE 15) 40 % oral gel 75 g 2 Tube Oral Q15 Min PRN Kayla Orona, MARKET EDITOR Or dextrose 50 % solution 12.5 g 12.5 g Intravenous Q15 Min PRN Kayla Orona, MARKET EDITOR Or dextrose 50 % solution 25 g 25 g Intravenous Q15 Min PRN Kayla Orona MARKET EDITOR Or glucagon (GLUCAGEN) injection 1 mg 1 [...] Kayla Orona APRN 2 Units at 11/07/24 204 ipratropium-albuterol (DUONEB) 0.5-2.5 mg/3 mL nebulizer solution [...] Rafiq Chakraborty MD 500 mg at 11/04/24 075 methocarbamol (ROBAXIN) tablet 1,000 mg 1,000 mg [...] not compromised This report was generated using [employer] Speaking dictation software. Although every attempt has been made by the provider to proofread this document, occasional misspellings and typographical errors Sign Chris [place] MD, FIDSA, FACP [facility] Infectious Diseases Available via [employer] 11/08/2024 10:02 AM * [place] Camejo MD - 11/08/2024 9:46 AM EST Blas's clinical progress and CP decompensation noted. Appreciate Medical management and CT recommendations. Drain out, wound clean, and Shelving Supervisor in place. Will continue to follow. * Gema Dumont SHUBHAM Jane - 11/08/2024 9:38 AM EST Images from the original note were not included. [facility] PROGRESS NOTE Outpatient Digital Controls Technical Officer: Digital Controls Technical Officer at [facility] in [place] Assessment & Plan Assessment Blas Genao is [...] Continuous New Bag, 1 mg/hr at 11/07 2346 PRN Medication Ordered Dose/Rate, Route, Frequency Last [...] by 8 bpm Confirmed by MD Claude, [facility] ([id number]) on 11/07/2024 6:25:53 PM ECHO: [...] Compared to previous outside study report from [facility] on 08/05/2024, Mitral and tricuspid regurgitation were not previously reported. Recommend transesophageal echocardiogram if clinically indicated. All additional appropriate imaging studies within the past 24 hours reviewed - images reviewed and independently interpreted. Sign Gema Jane APRN [facility] [place] 11/08/2024 9:38 AM * Shay Martin MD - 11/08/2024 7:40 AM EST Images from the original note were not included. Division of Pulmonary, Critical Care, and Sleep Medicine [address] [place] [address], [address], [place] [address] Critical Care Progress Note Assessment & Plan [...] Compared to previous outside study report from [facility] on 08/05/2024, Mitral and tricuspid regurgitation [...] Case IDs Date Procedure Surgeon Location Status [id number] 11/05/24 LEFT BELOW KNEE AMPUTATION [place] Camejo MD [facility] OR Comp Medications: Medication/MAR Report: Medications Scheduled Medication Ordered Dose/Rate, Route, Frequency Last Action acetaminophen (TYLENOL) tablet 975 mg 975 mg, PO, Q6H JUDSON Given, 975 mg at 11/08 032 amiODARONE (PACERONE) tablet 200 mg 200 mg, PO, BID Given, 200 mg at 11/07 816 amLODIPine (NORVASC) tablet 10 mg 10 mg, PO, Daily Given, 10 mg at 11/07 816 aspirin enteric coated (ECOTRIN LOW STRENGTH) tablet 81 mg 81 mg, PO, Q12H JUDSON Given, 81 mg at 11/07 214 aztreonam (AZACTAM) 2 g in sodium chloride-MBP [...] ruled out. This report was generated using Contact [employer] Speaking dictation software. Although every attempt has [...] left lower extremity, continue LLE nutmegger and sand caster apprentice. - skin checks to LLE bid - [...] CPAP 15L, sats drop when removed LLE: nutmegger/sand caster apprentice in place. Thigh soft Labs: Recent Labs [...] were not included. Coverage for Dr. Mtz [facility] ID Progress Note Name: Blas Genao Age: [...] 11/05 -10/27: Left foot wound culture at [place]: MRSA, Enterococcus faecalis, VRE, Corynebacterium species and [...] -Ceftaroline, 11/05 Plan: Patient was upgraded to Imperial 11 stepdown secondary to increased oxygen requirement, [...] 0813 11/06/24 0458 11/05/24 0712 11/04/24 1119 11/02/241999 WHITE BLOOD CELL COUNT Thou/uL 12.4* 11.9* [...] was performed in office at [facility] and images reviewed by orthopedic [...] tablet 975 mg 975 mg Oral Q6H [facility] POOJA De Souza 975 mg at 11/07/24 0814 amiODARONE (PACERONE) tablet 200 mg 200 mg Oral BID POOJA De Souza 200 mg at 11/07/24 0817 amLODIPine (NORVASC) tablet 10 mg 10 mg Oral Daily POOJA De Souza 10 mg at 11/07/24 0817 aspirin enteric coated (ECOTRIN LOW STRENGTH) tablet 81 mg 81 mg Oral Q12H [facility] POOJA De Souza81 mg at 11/07/24 [...] not compromised This report was generated using [employer] Speaking dictation software. Although every attempt has been made by the provider to proofread this document, occasional misspellings and typographical errors Sign Chris [place] MD, FID, [facility] Infectious Diseases Available via [employer] 11/07/2024 11:30 AM * Lei Diaz MD [...] WOUND VAC; Surgeon: Dallas Camejo MD; Location: [facility] OR; Service: Orthopaedics; Laterality: Left; FOOT SURGERY Right x5 INCISION AND DRAINAGE FOOT Left OH PROCEDURE MAZE AFIB OSTECTOMY CALCANEOUS Left 09/10/2024 Procedure: ANKLE PARTIAL CALCANECTOMY; Surgeon: Dallas Camejo MD; Location: [facility] OR; Service: Orthopaedics; Laterality: Left; wOUND PARTIALLY [...] (two) times a day. Continuous Glucose Sensor (saambaaStyle Wallace 3 Sensor) [facility] INJECT 1 DEVICE INTO THE SKIN EVERY [...] 430 . Recent Labs 11/05/24 0712 11/06/24 0458 11/07/24 0813 NA 130* 131* 129* K 3.4 [...] to prior. Interpreted by: Roberto Tolbert MD Accuracy Expert Sign: Lei Diaz MD 11/07/2024 11:05 AM [...] from the original note were not included. [facility] MEDICINE PROGRESS NOTE Assessment Mr. Blas [...] evaled started BiPap rescuse and transferred to [facility]11. Plan Principal Problem: Acute osteomyelitis of left [...] Diet Diabetic/ Calorie Controlled; Carb Counting 60g/meal 6910-8109 kcal DVT Px: SCDs - RIGHT (Knee High) Status: Full Code Consults placed: Procedures Inpatient consult to Internal Medicine Inpatient consult to Infectious Diseases (Specify provider ) Inpatient consult to Social Work Inpatient consult to Anesthesiology Inpatient consult to cardiology ([facility]) Inpatient consult to cardiac surgery Inpatient [...] Case IDs Date Procedure Surgeon Location Status [id number] 11/05/24 LEFT BELOW KNEE AMPUTATION [place] Camejo MD [facility] OR Comp Plan WB Status: NWB left lower extremity. Building Services Supervisor stump sand caster apprentice in place. Appreciate PT and OT recommendations. [...] oriented. LE: Dressing clean, dry, and intact. Building Services Supervisor stump sand caster apprentice in place. Labs: Recent Labs 11/05/24 0712 [...] to monitor pain levels and sedation. Deep Bales, PharmD * Jessica Daily PT - 11/06/2024 [...] level of independence with functional mobility. Baseline [facility] Basic Mobility Score: 24 Current [facility] Basic Mobility Score: 16 Objective Data [...] History Past Medical History: Diagnosis Date A-fib ([facility]) Acute osteomyelitis ([facility]) Atrial flutter ([facility]) Cardiac pacemaker 2016 Carotid atherosclerosis Charcot's joint of right foot 2015 Chronic sciatica Complete AV block ([facility]) Diabetes mellitus ([facility]) TYPE II Diabetic foot ulcer ([facility]) ED (erectile dysfunction) Edema ESBL (extended spectrum beta-lactamase) producing bacteria infection GERD (gastroesophageal reflux disease) GI bleed Hyperlipidemia Hypertension Leukocytosis Metabolic bone disease Multiple drug resistant organism (MDRO) culture positive Non healing left heel wound Obesity Osteoarthrosis Osteomyelitis of both feet ([facility]) PAD (peripheral artery disease) ([facility]) Primary osteoarthritis of knee Proteinuria Renal osteodystrophy Restless legs syndrome (RLS) no meds, lyrica helps Septic joint of left knee joint ([facility]) Sleep apnea BiPap Smoker Stage 3a chronic kidney disease (CKD) ([facility]) Past Surgical History: Procedure Laterality [...] WOUND VAC; Surgeon: Dallas Camejo MD; Location: [facility]; Service: Orthopaedics; Laterality: Left; FOOT SURGERY Right x5 INCISION AND DRAINAGE FOOT Left [place] PROCEDURE MAZE AFIB OSTECTOMY CALCANEOUS Left 09/10/2024 Procedure: ANKLE PARTIAL CALCANECTOMY; Surgeon: Dallas Camejo MD; Location: [facility]; Service: Orthopaedics; Laterality: Left; wOUND PARTIALLY [...] Progressive Mobility Level Achieved Transferring to Chair AMPAC Basic Mobility Turning from your back to [...] Climbing 3-5 steps with a railing? 1 [facility] Basic Mobility Score 16 Therapy Assessment/Plan [...] PT goal 1 Transfer Goal 1 (PT) [place] Level/Cues Needed (Transfer Goal 1, PT) supervision required Time Frame (Transfer Goal 1, PT) 1 week Activity/Assistive Device (Transfer Goal 1, PT) rdc-rp-bsgug/klhil-iq-dvq;fnl-ru-zqtur/vopvk-bf-hri;wheelchair transfer;walker, rolling Gait Training Goal 1 (PT) Time Frame (Gait Training Goal 1, PT) 1 week [place] Level (Gait Training Goal 1, PT) supervision required Activity/Assistive Device (Gait Training Goal 1, PT) gait (walking locomotion);assistive device use;maintain weight-bearing status;increase energy conservation;increase endurance/gait distance;walker, rolling Distance (Gait Training Goal 1, PT) 20 Wheelchair Locomotion Goal 1 (PT) [place] Level/Cues Needed (Wheelchair Locomotion Goal 1, PT) supervision required Time Frame (Wheelchair Locomotion Goal 1, PT) 1 week Activity (Wheelchair Locomotion Goal 1, PT) wheelchair mobility skills, all Distance Goal 1 (Wheelchair Locomotion, PT) 200 Sign: Jessica Daily, PT * Chris [place] MD - 11/06/2024 10:58 AM EST Images from the original note were not included. Coverage for Dr. Mtz [facility] ID Progress Note Name: Blas Genao Age: [...] amputation -10/27: Left foot wound culture at [place]: MRSA, Enterococcus faecalis, VRE, Corynebacterium species and [...] was performed in office at [facility] and images reviewed by orthopedic [...] tablet 975 mg 975 mg Oral Q6H [facility] POOJA De Souza 975 mg at 11/05/24 0650 acetaminophen (TYLENOL) tablet 975 mg 975 mg Oral Q8H [facility] POOJA De Souza 975 mg at 11/06/24 [...] 20 mg Intravenous Daily PRN POOJA De Souaz docusate sodium (COLACE) capsule 100 mg 100 [...] tablet 2 tablet Oral BID POOJA De Souaz 2 tablet at 11/06/24 0909 thiamine mononitrate [...] not compromised This report was generated using [employer] Speaking dictation software. Although every attempt has been made by the provider to proofread this document, occasional misspellings and typographical errors Sign Chris [place] MD, SUBHA, [facility] Infectious Diseases Available via [employer] 11/06/2024 10:58 AM * Adama Prasad APRN [...] bumex PO 2mg daily). Continue telemetry Outpatient disaster recovery consultant[facility] [place] Subjective/24 hour Events C/o significant pain. No [...] Continuous Glucose Sensor (FreeStyle Wallace 3 Sensor) [facility] INJECT 1 DEVICE INTO THE SKIN EVERY [...] PO, BID Given, 150 mg at 11/06 0807 senna (SENOKOT) tablet 2 tablet 2 tablet, [...] Daily PRN Given, 750 mg at 11/06 512 mineral oil (FLEET OIL) enema 1 enema [...] Compared to previous outside study report from [facility] on 08/05/2024, Mitral and tricuspid regurgitation [...] software and direct typing. Please excuse inadvertent quality improvement manager and typing errors. Sign Adama Prasad APRN [...] Case IDs Date Procedure Surgeon Location Status [id number] 11/05/24 LEFT BELOW KNEE AMPUTATION [place] Camejo MD [facility] OR Comp Plan Multimodal pain management DVT Prophylaxis: ASA 81mg PO BID Weight Bearing Status: NWB PT/OOB HV in place scant output overnight, will discuss with Dr. Camejo Appreciate Medicine, ID and Cardiology recs: for medical comanagement []TATIANNA pending []Blood Cultures Currently on Dapto, Ceftaroline Building Services Supervisor Stump sand caster apprentice ordered Subjective No complaints. No CP,SOB,N/V. Pain [...] from the original note were not included. [facility] MEDICINE PROGRESS NOTE Assessment Mr. Blas [...] without problems. Last drink day before admission [facility] protocol ordered Diet: Diet Diabetic/ Calorie Controlled; Carb Counting 60g/meal 6198-9144 kcal DVT Px: SCDs - RIGHT (Knee High) Status: Full Code Consults placed: Procedures Inpatient consult to Internal Medicine Inpatient consult to Infectious Diseases (Specify provider ) Inpatient consult to Social Work Inpatient consult to Anesthesiology Inpatient consult to cardiology ([facility]) Inpatient consult to cardiac surgery Inpatient [...] Case IDs Date Procedure Surgeon Location Status [id number] 11/05/24 LEFT BELOW KNEE AMPUTATION Dallas Camejo MD [facility] OR [facility] WB status: NWB LLE Postop antibiotics: [...] from the original note were not included. [facility] CARDIOLOGY SERVICE CONSULT Date of Consult: 11/05/2024 Patient's Primary Care Physician: Lee Fabian MD Physician Requesting Consult: Orthopedic surgery Primary Digital Controls Technical Officer: Digital Controls Technical Officer at [facility] Reason for Consultation: Preop Admit Date: 11/02/2024 [...] doing TATIANNA first is not going to pipe changer. Leg wounds are like the source that [...] both feet (HCC) PAD (peripheral artery disease) ([facility]) Primary osteoarthritis of knee Proteinuria Renal osteodystrophy Restless legs syndrome (RLS) no meds, lyrica helps Septic joint of left knee joint ([facility]) Sleep apnea BiPap Smoker Stage 3a chronic kidney disease (CKD) ([facility]) Reviewed Past Surgical History: Procedure [...] Continuous Glucose Sensor (FreeStyle Wallace 3 Sensor) [facility] INJECT 1 DEVICE INTO THE SKIN EVERY [...] 9 bpm Confirmed by MD Danya, Deep ([id number]) on 11/03/2024 4:30:25 PM Echocardiogram (TTE) Comprehensive [...] Compared to previous outside study report from [facility] on 08/05/2024, Mitral and tricuspid regurgitation were not previously reported. Recommend transesophageal echocardiogram if clinically indicated. All additional appropriate imaging studies within the past 24 hours reviewed - images reviewed and independently interpreted. Sign: Nitish Tracy MD [facility] [place] 11/05/2024 2:43 PM * Hilda Alvarado RN - 11/05/2024 1:36 PM EST Images from the original note were not included. * Hilda Alvarado RN - 11/05/2024 1:00 PM EST Attending Anesthesiologist (JO-ANN) monitoring and aware of vitals during duration of block procedure. * Ena Mtz MD - 11/05/2024 9:42 AM EST Images from the original note were not included. [facility] INFECTIOUS DISEASE Consult progress Note Name: Blas [...] faecium 10/27: Left foot wound culture at [place]: MRSA, Enterococcus faecalis, VRE, Corynebacterium speciesand gram-negative [...] 0851 Sign Ena Mtz MD, FACP, CWSP [facility] Infectious Diseases Available via [employer] SUBJECTIVE Tmax 102.3 ??F Fevers overnight [...] not compromised. This report was generated using [employer] Speaking dictation software. Although every attempt has [...] from the original note were not included. [facility] MEDICINE PROGRESS NOTE Assessment Mr. Blas [...] without problems. Last drink day before admission [place] protocol ordered Diet: Diet NPO; Meds DVT Px: SCDs - Bilateral (Knee High) Status: Full Code Consults placed: Procedures Inpatient consult to Internal Medicine Inpatient consult to Infectious Diseases (Specify provider ) Inpatient consult to Social Work Inpatient consult to Anesthesiology Inpatient consult to cardiology ([facility]) Barriers for discharge: IV antibiotics, fevers, [...] request it: Integrative Medicine Services available at [facility], including, Massage Therapy, and Reiki/Energy Therapy Social Work Spiritual Care Pharmacist Nutrition Patient declined resources at this time. Demographic Screening: Medical insurance - Medicare Search Engine Marketing Strategist involvement - No. Worker's compensation - No [...] staff will identify along with patient a councilperson to provide updates. Interventions Provided and reviewed [...] were not included. Coverage for Dr. Mtz [facility] ID Progress Note Name: Blas Genao Age: [...] ostectomy. -10/27: Left foot wound culture at [place]: MRSA, Enterococcus faecalis, VRE, Corynebacterium species and [...] last 7 days Lab Units 11/04/24 0726 11/03/24212411/03/24 1750 11/02/249 11/02/241999 SODIUM mmol/L -- -- -- -- [...] was performed in office at [facility] and images reviewed by orthopedic provider. Any findings are documented within ambulatory encounter note on date of service. Current Medications: Current Facility-Administered Medications Medication Dose Route Frequency Provider Last Rate Last Admin lactated ringers (LR) infusion 100 mL/hr Intravenous Continuous POOJA Akers acetaminophen (TYLENOL) tablet 975 mg 975 mg Oral Q6H [facility] POOJA Arias 975 mg at 11/04/24 0457 [...] breakfast POOJA Arias 500 mg at 11/04/24 075 methocarbamol (ROBAXIN) tablet 750 mg 750 mg [...] Mcknight POOJA Vazquez 2 tablet at 11/03/24 6217 ALLERGIES: Allergies Allergen Reactions Lisinopril Other (See [...] not compromised This report was generated using [employer] Speaking dictation software. Although every attempt has been made by the provider to proofread this document, occasional misspellings and typographical errors Sign Chris Taylor MD, [facility], [facility] Infectious Diseases Available via [employer] 11/04/2024 9:13 AM * Juaquin Kern MD [...] Diet Diabetic/ Calorie Controlled; Carb Counting 60g/meal 6700-1458 kcal Diet NPO; Meds DVT Px: SCDs - Bilateral (Knee High) Status: Full Code Consults placed: Procedures Inpatient consult to Internal Medicine Inpatient consult to Infectious Diseases (Specify provider ) Inpatient consult to Social Work Inpatient consult to Anesthesiology Inpatient consult to cardiology ([facility]) Barriers for discharge: IV antibiotics, fevers, [...] booked: case request and [facility] OR front end technician notified [x]Abx patient account liaison to OR (2g ancef) []Pre-Op Noes to [...] for Discharge? yes Designated Caregiver's Name Blas Morrisonford Caregiver's Relationship to Patient child Living Environment People in Home alone Current Living Arrangements home (1-level, [facility]) Primary Care Provided by self Provides Primary [...] or living in a longterm (including now)? 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 x 2 weekly) Concerns to be Addressed home safety;discharge planning Patient/Family Anticipates Transition to home with help/services;inpatient rehabilitation facility Patient/Family Anticipated Services at Transition home health care;group home;other (see comments) (inpatient rehab) Transportation Anticipated family or friend will provide;health plan transportation Current Discharge Risk physical impairment;lives alone;dependent with mobility/activities of daily living;chronically ill Discharge Coordination/Tasks Status Post Discharge Needs/Treatments PT;OT;Wound Care;Retirement Home Visit Patient/Patient Sugar House Supervisor Provided With Choices Of Homecare Company Preferences(s) Homecare Company Preference(s) [facility] * Juaquin Kern MD - 11/03/2024 1:17 PM EST Images from the original note were not included. [facility] MEDICINE PROGRESS NOTE Assessment Mr. Blas [...] Diet Diabetic/ Calorie Controlled; Carb Counting 60g/meal 8560-7757 kcal DVT Px: SCDs Status: Full Code [...] []CMG conslt []ID consult []PICC line (ordered) []Building Services Supervisor clinic: pre-amputation education/fitting []Blood cultures: pending []Dressing [...] Patient arrived around 1800 this evening to [place] [id number] in no acute distress. Placed on contact [...] PAD, RLS and CKD with presents to [facility] inpatient floor for known left calc [...] (she has seen patient in the past) -Building Services Supervisor to be called for pre-amputation education/fitting in [...] PAD, RLS and CKD3 that presents to [facility] inpatient floor as a direct admit [...] Objective Past Medical History: Diagnosis Date A-fib ([facility]) Acute osteomyelitis ([facility]) Atrial flutter ([facility]) Cardiac pacemaker 2016 Carotid atherosclerosis Charcot's joint of right foot 2015 Chronic sciatica Complete AV block ([facility]) Diabetes mellitus ([facility]) TYPE II Diabetic foot ulcer ([facility]) ED (erectile dysfunction) Edema ESBL (extended spectrum beta-lactamase) producing bacteria infection GERD (gastroesophageal reflux disease) GI bleed Hyperlipidemia Hypertension Leukocytosis Metabolic bone disease Multiple drug resistant organism (MDRO) culture positive Non healing left heel wound Obesity Osteoarthrosis Osteomyelitis of both feet ([facility]) PAD (peripheral artery disease) ([facility]) Primary osteoarthritis of knee Proteinuria Renal osteodystrophy Restless legs syndrome (RLS) no meds, lyrica helps Septic joint of left knee joint ([facility]) Sleep apnea BiPap Smoker Stage 3a chronic kidney disease (CKD) ([facility]) Past Surgical History: Procedure Laterality Date AMPUTATION Right 2017 TMA AORTOGRAM- ABDOMINAL Left 09/15/2024 Procedure: LEFT LOWER EXTREMITY ANGIOGRAM; Surgeon: Delbert Mcintosh MD; Location: [facility] OR; Service: Peripheral Vascular; Laterality: Left; BARIATRIC SURGERY 2018 CARDIAC ELECTROPHYSIOLOGY STUDY AND ABLATION x5 CARDIAC PACEMAKER PLACEMENT 2016 CARDIAC SURGERY 2020 watchman device CARDIOVERSION 07/2024 CC PERIPHERAL ANGIOGRAPHY Left 07/2024 LE CHANGE DRESSING WOUND VAC Left 09/10/2024 Procedure: APPLICATION OF WOUND VAC; Surgeon: Dallas Camejo MD; Location: [facility] OR; Service: Orthopaedics; Laterality: Left; FOOT SURGERY Right x5 INCISION AND DRAINAGE FOOT Left [place] PROCEDURE MAZE AFIB OSTECTOMY CALCANEOUS Left 09/10/2024 Procedure: ANKLE PARTIAL CALCANECTOMY; Surgeon: Dallas Camejo MD; Location: [facility]; Service: Orthopaedics; Laterality: Left; wOUND [...] Continuous Glucose Sensor (FreeStyle Wallace 3 Sensor) [facility] INJECT 1 DEVICE INTO THE SKIN EVERY [...] tablet 975 mg 975 mg, PO, Q6H [facility] Ordered amiODARONE (PACERONE) tablet 200 mg 200 [...] PAD, RLS and CKD with presents to [facility] inpatient floor for known left calc [...] (she has seen patient in the past) -Building Services Supervisor to be called for pre-amputation education/fitting in [...] PAD, RLS and CKD3 that presents to [facility] inpatient floor as a direct admit [...] Objective Past Medical History: Diagnosis Date A-fib ([facility]) Acute osteomyelitis ([facility]) Atrial flutter ([facility]) Cardiac pacemaker 2016 Carotid atherosclerosis Charcot's joint of right foot 2015 Chronic sciatica Complete AV block ([facility]) Diabetes mellitus ([facility]) TYPE II Diabetic foot ulcer ([facility]) ED (erectile dysfunction) Edema ESBL (extended spectrum beta-lactamase) producing bacteria infection GERD (gastroesophageal reflux disease) GI bleed Hyperlipidemia Hypertension Leukocytosis Metabolic bone disease Multiple drug resistant organism (MDRO) culture positive Non healing left heel wound Obesity Osteoarthrosis Osteomyelitis of both feet ([facility]) PAD (peripheral artery disease) ([facility]) Primary osteoarthritis of knee Proteinuria Renal osteodystrophy Restless legs syndrome (RLS) no meds, lyrica helps Septic joint of left knee joint ([facility]) Sleep apnea BiPap Smoker Stage 3a chronic kidney disease (CKD) ([facility]) Past Surgical History: Procedure Laterality [...] WOUND VAC; Surgeon: Dallas Camejo MD; Location: [facility] OR; Service: Orthopaedics; Laterality: Left; FOOT SURGERY Right x5 INCISION AND DRAINAGE FOOT Left [place] PROCEDURE MAZE AFIB OSTECTOMY CALCANEOUS Left 09/10/2024 Procedure: ANKLE PARTIAL CALCANECTOMY; Surgeon: Dallas Camejo MD; Location: [facility] OR; Service: Orthopaedics; Laterality: Left; wOUND PARTIALLY [...] Continuous Glucose Sensor (FreeStyle Wallace 3 Sensor) [facility] INJECT 1 DEVICE INTO THE SKIN EVERY [...] tablet 975 mg 975 mg, PO, Q6H [facility] Ordered amiODARONE (PACERONE) tablet 200 mg 200 [...] to verify the correct patient, procedure, equipment, student support advisor and site/side marked as required. Indications: vascular [...] Representatives. HCR- Blas and Jessica. Copy in [employer]. SW to f/u with pt this afternoon. Addendum: 1:30pm SW met with pt today for support. Blas was sitting in his chair, open to visit. Very social and pleasant. Very future oriented with the hopes of a return to work, if he chooses based on his recovery. 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. He is anticipating rehab in a day [...] 11/19/2024 Current Attending: Gianluca Calles MD Name: Bals Genao Age: 63 y.o. : 1960 Sex: male Assessment and Plan: Chart and imaging reviewed. Patient meets clinical indications for proline placement for intermediate frame tender antibiotics in the setting of osteomyelitis and [...] guidelines to the screening nurse at ext: [phone] Please direct any questions regarding procedure time/ date to the specific imaging modality: US: ext: [id number] CT: ext: 13425 Fluoroscopy: ext: [id number] IR: ext: [phone] Consent: The patient is able to give [...] injection 5,000 Units On hold since Fri11/16/2024 [id number] until manually unheld; held by Herberth Whitmore [...] at 1.8mg/dL - regarding the question of long term PICC for Abx. This patient is high [...] History Past Medical History: Diagnosis Date A-fib ([facility]) Acute osteomyelitis ([facility]) Atrial flutter ([facility]) Cardiac pacemaker 2016 Carotid atherosclerosis Charcot's joint of right foot 2015 Chronic sciatica Complete AV block ([facility]) Diabetes mellitus ([facility]) TYPE II Diabetic foot ulcer ([facility]) ED (erectile dysfunction) Edema ESBL (extended spectrum beta-lactamase) producing bacteria infection GERD (gastroesophageal reflux disease) GI bleed Hyperlipidemia Hypertension Leukocytosis Metabolic bone disease Multiple drug resistant organism (MDRO) culture positive Non healing left heel wound Obesity Osteoarthrosis Osteomyelitis of both feet ([facility]) PAD (peripheral artery disease) Primary osteoarthritis of knee Proteinuria Renal osteodystrophy Restless legs syndrome (RLS) no meds, lyrica helps Septic joint of left knee joint ([facility]) Sleep apnea BiPap Smoker Stage 3a chronic kidney disease (CKD) ([facility]) Past Surgical History: Procedure Laterality Date AMPUTATION Right 2018 TMA AMPUTATION BELOW KNEE Left 11/05/2024 Procedure: LEFT BELOW KNEE AMPUTATION; Surgeon: Dallas Camejo MD; Location: [facility] OR; Service: Orthopaedics; Laterality: Left; AORTOGRAM- ABDOMINAL Left 09/15/2024 Procedure: LEFT LOWER EXTREMITY ANGIOGRAM; Surgeon: Delbert Mcintosh MD; Location: [facility] OR; Service: Peripheral Vascular; Laterality: Left; BARIATRIC SURGERY 2018 CARDIAC ELECTROPHYSIOLOGY STUDY AND ABLATION x5 CARDIAC PACEMAKER PLACEMENT 2016 CARDIAC SURGERY 2020 watchman device CARDIOVERSION 07/2024 CC PERIPHERAL ANGIOGRAPHY Left 07/2024 LE CHANGE DRESSING WOUND VAC Left 09/10/2024 Procedure: APPLICATION OF WOUND VAC; Surgeon: Dallas Camejo MD; Location: [facility] OR; Service: Orthopaedics; Laterality: Left; EXTRACTION LEAD(S) LASER FROM DUAL PM SYSTEM Left 11/17/2024 Procedure: Extraction lead(s) laser from dual PM system; 67525; Surgeon: Rui Pabon MD; Location[facility]; Service: Electrophysiology; Laterality: Left; FOOT SURGERY Right x5 INCISION AND DRAINAGE FOOT Left INSERT/REPLACE LEADLESS PACEMAKER N/A 11/17/2024 Procedure: Micra Leadless Pacemaker Insert/Replacement; 23891; Surgeon: Rui Pabon MD; Location[facility]; Service: Electrophysiology; Laterality: N/A; [place] PROCEDURE MAZE AFIB OSTECTOMY CALCANEOUS Left 09/10/2024 Procedure: ANKLE PARTIAL CALCANECTOMY; Surgeon: Dallas Camejo MD; Location: [facility] OR; Service: Orthopaedics; Laterality: Left; wOUND PARTIALLY CLOSED SUPERFICIALLY, WOUND VAC PLACED TOTAL KNEE ARTHROPLASTY Left 2016 REVISION SAME YEAR/INFECTION Family History No family [...] Continuous Glucose Sensor (FreeStyle Wallace 3 Sensor) [facility] INJECT 1 DEVICE INTO THE SKIN EVERY [...] injection 5,000 Units On hold since Fri11/16/2024 [id number] until manually unheld; held by Herberth Whitmore [...] found for: TACROLIMUS No results found for: [id number] , TOTVOL , CRCLR , PERIOD No [...] Sign: Anmol Reynoso MD 11/19/2024 10:09 AM [facility] [phone] * Gilda May RN - 11/12/2024 3:31 PM EST [facility] Consult Visit Date: 11/12/2024 Patient Name: Blas Genao Date of : 1960 Reason for Consult: initial Wound Team Summary Assessment: 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 Had been using [...] 1500 Number of days: 9 Gilda May LEASING ASSISTANT, CW 11/12/2024 3:31 PM * Janice Hazel MD [...] needs s/p BKA. He is NWB to E. Rehabilitation disposition recommendations: Pending medical stability (TATIANNA, [...] nighttime disruptions as medically appropriate. Maintain regular [id number] including appropriate lighting in the room. Consider [...] limb. Per orders patient is to have sand caster apprentice on AAT, noted that residual limb was wrapped with srinivas wrap vs sand caster apprentice. Reached out to orthopedic PA in regards to sand caster apprentice for patient. Patient is motivated to participate [...] W/C, EMS transport and home PT. Current [facility] Basic Mobility Score: 14 OT 11/09 [...] with strength, balance and activity tolerance. Current [facility] Daily Activity Score: 15 Outcomes score [facility] The Activity Measure for Post-Acute Care [...] KNEE AMPUTATION; Surgeon: Dallas Camejo MD; Location: [facility] OR; Service: Orthopaedics; Laterality: Left; AORTOGRAM- ABDOMINAL [...] WOUND VAC; Surgeon: Dallas Camejo MD; Location: [facility] OR; Service: Orthopaedics; Laterality: Left; FOOT SURGERY Right x5 INCISION AND DRAINAGE FOOT Left [place] PROCEDURE MAZE AFIB OSTECTOMY CALCANEOUS Left 09/10/2024 Procedure: ANKLE PARTIAL CALCANECTOMY; Surgeon: Dallas Camejo MD; Location: [facility]; Service: Orthopaedics; Laterality: Left; wOUND PARTIALLY [...] (two) times a day. Continuous Glucose Sensor (saambaaStyle Wallace 3 Sensor) [facility] INJECT 1 DEVICE INTO THE SKIN EVERY [...] IV, Q8H Given, 600 mg at 11/11 025 chlorhexidine gluconate 2 % wipes - central [...] amputation. Left BKA with ampushield and stump sand caster apprentice Skin: No skin breakdown to exposed skin [...] Hazel MD Physical Medicine & Rehabilitation, PGY-2 [facility] Available on [employer] secure chat Associated attestation - Lucho Red [...] ESTAssociated Order(s): IP CONSULT TO NUTRITION SERVICES [facility] Note Visit Type: initial assessment Reason for Dietitian Visit: consult (supplement drinks). Reason for Admission: Acute osteomyelitis of left calcaneus (HCC) Pertinent Medical History: Past Medical History: Diagnosis Date ??? A-fib (HCC) ??? Acute osteomyelitis (HCC) ??? Atrial flutter (HCC) ??? Cardiac pacemaker 2016 ??? Carotid atherosclerosis ??? Charcot's joint of right foot 2015 ??? Chronic sciatica ??? Complete AV block [...] ??? 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 He typically has an egg sandwich for breakfast and a protein shake (like muscle milk), for lunch he has a egg or chicken salad sandwich and a protein drink, and dinner typically is a protein/starch/vegetable. Factors Affecting Nutritional Intake: Food Related Allergies: [facility] Cultural/Ethnic Preferences: None noted/reported. Food Insecurity Concerns: Never true Weight: Weights (last 10 days) Date/Time Weight Scale 11/02/246 120 kg (264 lb 8 oz) bed [...] Wasting: none Adipose Wasting: none Gastrointestinal: (LBM 2) Skin: edema (trace generalized edema) Wound Documentation Reviewed: yes Labs: Na 135, BUN 56, Cr 2, Phos 5.6, poc Gluc 124-222, 09/03/24: A1c 8.7 Diagnostics: reviewed Medications: Bumex IV, tums, calcium citrate, vitamin D, vitamin B12, folic acid, SSI, multivit with minerals, PPI, senna, thiamine Estimated Daily Energy and Protein Needs: Energy Needs: 2080 - 2600 Kcals/day (20 - 25 Kcals/kg) Terry: RMR (Terry-St. Jeor Equation): 1920.63 Terry-St. Jeor (Considerations): 0646-5873 kcal (MSJ +1.2-1.3) based on 104 kg (229 lb 4.5 oz) (reported dry weight) Protein Needs: 117 - 141 gm, (1.5 - 1.8g/kg) based on 78.1 kg (172 lb 2.9 oz) (Adjusted IBW) Fluids: 2500ml based on Estimated/Assessed Carbohydrates Needs: 75 g CHO/meal Current Diet: Diet Diabetic/ Calorie Controlled; Carb Counting 60g/meal 2662-2007 kcal; 2 gm NA (Low Sodium); 2 [...] Compared to previous outside study report from [facility] on 08/05/2024, Mitral and tricuspid regurgitation [...] KNEE AMPUTATION; Surgeon: Dallas Camejo MD; Location: [facility]; Service: Orthopaedics; Laterality: Left; AORTOGRAM- ABDOMINAL Left 09/15/2024 Procedure: LEFT LOWER EXTREMITY ANGIOGRAM; Surgeon: Delbert Mcintosh MD; Location: [facility]; Service: Peripheral Vascular; Laterality: Left; BARIATRIC SURGERY 2018 CARDIAC ELECTROPHYSIOLOGY STUDY AND ABLATION x5 CARDIAC PACEMAKER PLACEMENT 2016 CARDIAC SURGERY 2020 watchman device CARDIOVERSION 07/2024 CC PERIPHERAL ANGIOGRAPHY Left 07/2024 LE CHANGE DRESSING WOUND VAC Left 09/10/2024 Procedure: APPLICATION OF WOUND VAC; Surgeon: Dallas Camejo MD; Location: [facility]; Service: Orthopaedics; Laterality: Left; FOOT SURGERY Right x5 INCISION AND DRAINAGE FOOT Left [place] PROCEDURE MAZE AFIB OSTECTOMY CALCANEOUS Left 09/10/2024 Procedure: ANKLE PARTIAL CALCANECTOMY; Surgeon: Dallas Camejo MD; Location: [facility]; Service: Orthopaedics; Laterality: Left; wOUND PARTIALLY [...] Continuous Glucose Sensor (FreeStyle Wallace 3 Sensor) [facility] INJECT 1 DEVICE INTO THE SKIN EVERY [...] day asneeded for muscle spasms. 09/16/24 10/16/24 eBv Mccauley PA-C metoPROLOL TARTRATE (LOPRESSOR) 50 MG [...] mg total) by mouth daily. 07/27/24 External ProviderMD pregabalin (LYRICA) 150 MG capsule Take 1 capsule (150 mg total) by mouth 2 times a day. 10/20/23 External Provider, MD bolivar (SENOKOT) 8.6 MG Tab tablet Take 2 tablets by mouth daily as needed for constipation. 09/16/24 09/23/24 Bev Mccauley PA-C sulfamethoxazole-trimethoprim (BACTRIM DS,SEPTRA DS) 800-160 MG per tablet Take 1 tablet by mouth 2(two) times a day. 10/05/24 [facility] [facility] Medications acetaminophen, 975 mg, Oral, Q6H [...] assessment, and plan as detailed in the reel slitter's note with the following exceptions, clarifications, or [...] from the original note were not included. [facility] CARDIOLOGY SERVICE CONSULT Date of Consult: 11/04/2024 Patient's Primary Care Physician: Lee Fabian MD Physician Requesting Consult: Orthopedic surgery Primary Digital Controls Technical Officer: Digital Controls Technical Officer at [facility] Reason for Consultation: Preop Admit Date: 11/02/2024 [...] Objective Past Medical History: Diagnosis Date A-fib ([facility]) Acute osteomyelitis (HCC) Atrial flutter ([facility]) Cardiac pacemaker 2016 Carotid atherosclerosis Charcot's joint of right foot 2015 Chronic sciatica Complete AV block ([facility]) Diabetes mellitus ([facility]) TYPE II Diabetic foot ulcer ([facility]) ED (erectile dysfunction) Edema ESBL (extended spectrum beta-lactamase) producing bacteria infection GERD (gastroesophageal reflux disease) GI bleed Hyperlipidemia Hypertension Leukocytosis Metabolic bone disease Multiple drug resistant organism (MDRO) culture positive Non healing left heel wound Obesity Osteoarthrosis Osteomyelitis of both feet ([facility]) PAD (peripheral artery disease) ([facility]) Primary osteoarthritis of knee Proteinuria Renal osteodystrophy Restless legs syndrome (RLS) no meds, lyrica helps Septic joint of left knee joint ([facility]) Sleep apnea BiPap Smoker Stage 3a chronic kidney disease (CKD) ([facility]) Reviewed Past Surgical History: Procedure [...] WOUND VAC; Surgeon: Dallas Camejo MD; Location: [facility] OR; Service: Orthopaedics; Laterality: Left; FOOT SURGERY Right x5 INCISION AND DRAINAGE FOOT Left OH PROCEDURE MAZE AFIB OSTECTOMY CALCANEOUS Left 09/10/2024 Procedure: ANKLE PARTIAL CALCANECTOMY; Surgeon: Dallas Camejo MD; Location: [facility] OR; Service: Orthopaedics; Laterality: Left; wOUND PARTIALLY [...] Continuous Glucose Sensor (FreeStyle Wallace 3 Sensor) [facility] INJECT 1 DEVICE INTO THE SKIN EVERY [...] today at 1503 until manually unheld;held by Juaquin Kern MDHold Reason: Pre-procedure On [...] yesterday at 0850 until manuallyunheld; held by Ena Mtz MDHold Reason: Other [...] Daily PRN Given, 750 mg at 11/02 1855 ondansetron (ZOFRAN-ODT) disintegrating tablet 4 mg 4 [...] Units 11/04/24 1243 11/04/24 1050 11/04/24 0726 [id number] SODIUM mmol/L -- 130* -- -- 130* [...] Compared to previous outside study report from [facility] on 08/05/2024, Mitral and tricuspid regurgitation were not previously reported. Recommend transesophageal echocardiogram if clinically indicated. All additional appropriate imaging studies within the past 24 hours reviewed - images reviewed and independently interpreted. Sign: Nitish Tracy MD [facility] [place] 11/04/2024 3:31 PM * MIGUEL ÁNGEL VirgenW - 11/04/2024 10:57 AM ESTAssociated Order(s): IP [...] Acute osteomyelitis (HCC), Atrial flutter (HCC),Cardiac pacemaker (2016), Carotid atherosclerosis, Charcot's joint of right foot (2015), Chronic sciatica, Complete AV block (HCC), Diabetes [...] and supports. Pt has been working at [employer] in [facility] up until recently. He shared he is deemed disabledunder Social Security Disability though has been working under ticket to work program. Pt states does not anticipate being able to return to his line of work and states he will get assisted disability. Discussed [place] Paid Leave. Pt states his son Bals and friend Bry are main supports, though [...] area. Gave pt info and literature on [facility] [employer]. Pt is familiar with this service though has not used it. He was glad to have the information. Thereis no application process for this service. Anyone 60 or older that lives within [facility]'s service area can use it and make reservations at [phone]. Pt indicates being able to facilitate rides to his CT follow ups as it's not anticipated that the [facility] service would bring him to CT. He [...] Patient Psychosocial History Demographic Information Preferred Language: Nigerian Preferred Name: Blas Relationship status: Single Children: Blas Genao Adult Son Legal next of kin [phone] Advance Directive Advance Directives:Advance Directives Does Patient Have Advance Directives?: yes Living Will: yes, copy requested Healthcare Sugar House Supervisor: yes, copy requested Legally Authorized Sugar House Supervisor Blas Genao Adult Son Legal next of kin [phone] Living Environment Household Members: pt and 3 pet cats Living Arrangements: House Does the patient have any environmental/safety concerns? No Support System Who currently provides assistance/support for the patient? Son , friends Also has homecare [facility] Quality of support systems? Supportive Patient provides care for: Self and Pet cats has 3 Employment/Finances/Insurance Financial Source: has been salary wages. Pt states he will be back on disability. Has been working through [employer] to Work Program and will be back [...] from the original note were not included. [facility] INFECTIOUS DISEASE CONSULTATION Date of Consult: 11/03/2024 [...] Negative 10/27: Left foot wound culture at [place]: MRSA, Enterococcus faecalis, VRE, Corynebacterium speciesand gram-negative [...] Protocol Orders 11/02/241942 Robert Mtz MD, FACP, SP [facility] Infectious Diseases Available via [employer]! SUBJECTIVE HISTORY OF PRESENT ILLNESS: This is a 63 y.o. year-old male complex medical history of atrial fibrillation, cardiac pacemaker, Watchman device, diabetes type II, history of ESBL infection, peripheral vascular disease, chronic kidney disease, diabetic foot infection/osteomyelitis, status post right TMA, recent hospitalization at [facility] for left diabetic foot infection. He underwent debridement of the left foot on 08/22 and repeat debridement on 08/24. Intraoperative cultures then revealed Enterococcus, ESBL E. coli and was treated with amoxicillin, meropenem and Flagyl. Fernanda parapsilosis was thought to be a contaminant. He was admitted to [facility] and underwent left calcaneus ostectomy on 09/10/2024, [...] HISTORY: Past Medical History: Diagnosis Date A-fib ([facility]) Acute osteomyelitis ([facility]) Atrial flutter ([facility]) Cardiac pacemaker 2016 Carotid atherosclerosis Charcot's joint of right foot 2015 Chronic sciatica Complete AV block ([facility]) Diabetes mellitus ([facility]) TYPE II Diabetic foot ulcer ([facility]) ED (erectile dysfunction) Edema ESBL (extended spectrum beta-lactamase) producing bacteria infection GERD (gastroesophageal reflux disease) GI bleed Hyperlipidemia Hypertension Leukocytosis Metabolic bone disease Multiple drug resistant organism (MDRO) culture positive Non healing left heel wound Obesity Osteoarthrosis Osteomyelitis of both feet ([facility]) PAD (peripheral artery disease) ([facility]) Primary osteoarthritis of knee Proteinuria Renal osteodystrophy Restless legs syndrome (RLS) no meds, lyrica helps Septic joint of left knee joint ([facility]) Sleep apnea BiPap Smoker Stage 3a chronic kidney disease (CKD) ([facility]) PAST SURGICAL HISTORY: Past Surgical [...] WOUND VAC; Surgeon: Dallas Camejo MD; Location: [facility] OR; Service: Orthopaedics; Laterality: Left; FOOT SURGERY Right x5 INCISION AND DRAINAGE FOOT Left OH PROCEDURE MAZE AFIB OSTECTOMY CALCANEOUS Left 09/10/2024 Procedure: ANKLE PARTIAL CALCANECTOMY; Surgeon: Dallas Camejo MD; Location: [facility]; Service: Orthopaedics; Laterality: Left; wOUND PARTIALLY [...] not compromised. This report was generated using [employer] Naturally Speaking dictation software. Although every attempt has been made by the provider to proofread this document, occasional misspellings and typographical errors may still be present. documented in this encounter Miscellaneous Notes * Plan of Care - Mitesh Caldwell RN - 11/25/2024 7:51 PM EST Patient being discharged home with home services. Patient has a proline and will require assisted antibiotics. Option care educated patient on home [...] Aguilar RD - 11/24/2024 12:27 PM EST [facility] Nutrition Note Visit Type: follow up assessment [...] to be adjusted Nutrition Plan for Discharge/Transfer: [facility] with ONS prn Nutrition Assessment: Nutrition following. 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 Call ling within reach, safety precautions [...] IV antibiotics continue. Pending placement at [facility]/c. Call ling within reach, safety precautions maintained. Nelson Iqbal 11/23/2024 7:15 PM * Plan of Care - Ellyn Patel RN - 11/23/2024 8:07 AM EST Plan of Care Reviewed With: patient Outcome Evaluation: Patient without complaints during the shift. Sleep study completed on room air.Plan is for discharge to inpatient rehab for assisted antibiotics when bed is available. Ellyn Patel [...] of Care Review Outcome: Progressing Vpaced on msllllb-Brdrzknj-espwxpy on IV Cubicin andIV Rocephin-Plan for PICC placement ?today for assisted anti-Bx's-see flowsheet for full assessment/vs Hansa Navarro [...] from the original note were not included. [address] [address] OPERATIVE REPORT Patient Name: Blas Genao Date of : 1960 Date of Procedure: 11/17/2024 Surgeons and Role: * Rui Paobn MD - Primary * Corbin Lamb APRN - Physician Cinder Pit Worker Pre-op Diagnosis: Pacemaker infection, subsequent encounter [T82.7XXD] Post-Op Diagnosis Codes: * Pacemaker infection, subsequent encounter [T82.7XXD] Details of Procedure Procedure(s): Extraction lead(s) laser from dual PM system; 41066 Micra Leadless Pacemaker Insert/Replacement; 96711 Additional Procedures Surgeon: Rui Pabon MD Cinder Pit Worker: : : Corbin Lamb APRN Anesthesia: Monitor [...] to visualize cardiac structures. Radial A-line was placedfor hemodynamic monitoring. He was then prepped and draped in sterile fashion from clavicle to mid thigh. Using ultrasound-guided Seldinger technique right femoral venous access was obtained. A 12 Angolan sheath was placed in the right femoral vein. Through this an Amplatz stiff wire was advanced under fluoroscopic visualization to the right IJ. Using ultrasound-guided Seldinger technique left femoral venous access was obtained. 8 Angolan sheath was placed in left femoral vein. Through this a steerable quadripolar catheter was advanced under fluoroscopic visualization to the right ventricle andpositioned in the right ventricle. Threshold testing was performed with excellent threshold. The output was set high. 20 cc 1% lidocaine was then used to achieve anesthesia at the site of the pacemaker. An incision was made over the pacemaker generator and dissected down to the generator. Generatorwas mobilized and removed from the pocket. Portions of the capsule were dissected free. Leads were dissected free to the sewing rings. With the temporary wire in place both right atrial right ventricular leads were disconnected from the generator as the patient is pacer dependent. Sutures were cut on both sewing rings. The sewing rings were pulled back. Active-fixation mechanisms on both Medtronic 5076 active-fixation leads were retracted. Leads were cut. EZ interlocking stylette's were placed down both right atrial right ventricular leads and deployed. External silk sutures were used for additional support. We then began with a 14 Angolan laser sheath. Under fluoroscopic visualization we started with the right ventricular lead. 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 We were able to progress to the innominate area. Here we reached the innominate region and had significant fibrosis. We then remove the 14 Angolan laser sheath and moved to the right atrial lead. Advancing over the right atrial lead under fluoroscopy we were able to laser in the subclavian region and make progress. Again we had the innominate. Here we used the laser [...] then used the right femoral venous 12 Angolan sheath and Amplatz wire which was in [...] ventricle positioning on the septum. ADAME and MEXICAN position confirmed our placement.We did an initial deployment here. Sensing of paced R wave was 12 mV. Device impedance was 520 ohms. Threshold was initially 1.5 V that decreased to 1.2 V. However remained at 1.2 V at 0.24 ms. We therefore retrieved the device back into the deploying sheath. We then movedthe device slightly superior. ADAME and MEXICAN position to confirm septal position. Initial testing [...] Z stitch was placed around the 8 Angolan sheath as well and the sheath was [...] Implant Name Type Inv. Item Serial No. Laborer Wood Preserving Plant Lot No. LRB No. Used Action [id number] PACEMAKER CARDIAC MICRA AV2 LDLS BNDL - [id number] Pacemaker [id number] PACEMAKER CARDIAC MICRA AV2 LDLS BNDL [id number] [employer] Left 1 Implanted Specimens: Dual-chamber pacemaker generator; chronic right atrial 5076 active- fixation Medtronic lead; chronic right ventricular 5076 active-fixation Medtronic lead; 2 sewing rings. 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 Jeor Equation): 1920.63 Terry-St. Jeor (Considerations): 0858-3462 kcal (MSJ +1.2-1.3) based on 104 kg [...] with Dr. Daniel Ramos MD Neurology PGY-2 [facility] * Hospital Course - Gianluca Calles MD [...] foot wound grew MRSA, Enterococcus faecalis, VRE, chronicbacterium species and gram-negative bacilli. Hospital course further complicated with MRSA and VRE/Enterococcus faecalis/VCM bacteremia and cardiology was consulted. 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 He developed acute hypoxic respiratory failure secondary to CHF exacerbation andwas transferred to medical stepdown unit for further management. In the stepdown, he was aggressively diuresed with Bumex drip and was weaned down on supplemental oxygen. He had a central line placed. EP consulted for possible infected pacer wire. O2 requirements improved and patient no longer requiring rescue BiPAP, satting well on 6LNC. MRI brain ordered to eval for septic emboli and patient reported tremor. Continued on diuresis. Initially held off on TATIANNA again due to anesthesia recommendingmore diuresis and optimizing respiratory status prior to procedure. ID discontinued aztreonam. Patient aggressively diuresed with large amount of urine output, CXR with improving bilateral congestion, proBNP downtrending, and O2 weaned to 3L NC. Patient went for TATIANNA in PM of 11/11 and was transferred to floor with telemetry after the procedure. On [...] while on IV antibiotics. Fax results to [phone]. Patient will need to be scheduled [...] R plantar foot, typically followed by wound center/carry out clerk and shelf stocker outpatient near patient's home. Had been using [...] at discharge summary. Tracy Lopez RN, CDS [phone] * Plan of Care - Eunice Khan [...] is AAOx4. Makes needs known. Medicated per NOV for pain. Good effect noted. VSS. Afebrile. [...] no change Outcome Evaluation: Assumed care from 9920-1841. Pt alert and oriented x4. Seems to [...] Case IDs Date Procedure Surgeon Location Status [id number] 11/05/24 LEFT BELOW KNEE AMPUTATION Dallas Camejo [...] 4 mg q3h PRN for severe pain ([id number]). 1x dose of liquid dilaudid 1mg given [...] Compared to previous outside study report from [facility] on 08/05/2024, Mitral and tricuspid regurgitation [...] Intake/Output Summary (Last 24 hours) at 11/11/2024 3101 Last data filed at 11/11/2024 0600 Gross [...] options, pt agreeable to referrals in the [facility] area. Referrals placed to [place] [facility] rehabs Recommendation:inpt rehab Problem: Adult Inpatient [...] Compared to previous outside study report from [facility] on 08/05/2024, Mitral and tricuspid regurgitation [...] PO, BID Given, 200 mg at 11/08 0903 amLODIPine (NORVASC) tablet 10 mg 10 [...] Continuous New Bag, 1 mg/hr at 11/09 332 PRN Medication Ordered Dose/Rate, Route, Frequency Last [...] Q3H PRN Given, 4 mg at 11/09 044 ipratropium-albuterol (DUONEB) 0.5-2.5 mg/3 mL nebulizer solution [...] legal medical record Tracy Lopez RN, CDS [phone] * Provider Documentation Query - Shay Martin [...] legal medical record. Tracy Lopez RN, CDS [phone] * Plan of Care - Krystina Felipe [...] in [place] d/t need for rescue NIV. [facility] 16 on 11/06-will needupdated PT/OT notes, pt active with [facility], may need inpt rehab. CM will [...] direct admit with plans for left BKA / calcaneal osteomyelitis s/p calcaneal ostectomy 08/2024 with [...] Compared to previous outside study report from [facility] on 08/05/2024, Mitral and tricuspid regurgitation [...] BASOABS 0.01 -- -- Recent Labs 11/06/24 0458 11/07/24 0813 11/07/24 [...] Plan of Care Review Flowsheets (Taken 11/08/2024 0641) Outcome Evaluation: Assumed care of pt at [...] reach. * Plan of Care - Liz Wong RRT - 11/07/2024 6:17 PM EST Pt was [...] PO, Q6H JUDSON Given, 975 mg at 02/09 0814 amiODARONE (PACERONE) tablet 200 mg 200 mg, [...] to prior. Interpreted by: Roberto Tolbert MD Accuracy Expert XR Chest 1 view-Portable (STAT) Final Result Bilateral reticulonodular opacities concerning for interstitial edema. Superimposed atypical infection cannot be ruled out. Interpreted by: David Vogt DO Accuracy Expert I personally reviewed the images and the resident's preliminary report and AGREE with the report as it is now presented (RADPAL1). Echocardiogram (TTE) Comprehensive (Contrast PRN) Final Result Transesophageal Echocardiogram (Results Pending) CT Head w/contrast (Results Pending) Rafiq Chakraborty MD PGY-3 [facility] Internal Medicine [place] text preferred 11/07/24 11:26 AM * Plan [...] LBM 11/06. Dsg to L BKA cdi, Building Services Supervisor sand caster apprentice in place. Pt reporting adequate paincontrol this [...] 8:26 PM * Rehab Therapy Consults - YASH Garcia - 11/06/2024 11:43 AM EST Occupational Therapy [...] level of independence with self-care tasks. Baseline [facility] Daily Activity Score: 24 Current [facility] Daily Activity Score: 18 Objective Data Cognitive Status: Alert+oriented x4, follows multi step instructions and communicates appropriately Cognitive Function: Attention: intact Memory/recall: intact Safety Awareness: intact, however would benefit from further education and training Insight: good, however would benefit from further education and training officer Function: intact Activities of Daily Living: Grooming/Oral [...] both feet (HCC) PAD (peripheral artery disease) ([facility]) Primary osteoarthritis of knee Proteinuria Renal osteodystrophy Restless legs syndrome (RLS) no meds, lyrica helps Septic joint of left knee joint ([facility]) Sleep apnea BiPap Smoker Stage 3a chronic kidney disease (CKD) ([facility]) Past Surgical History: Procedure Laterality [...] WOUND VAC; Surgeon: Dallas Camejo MD; Location: [facility] OR; Service: Orthopaedics; Laterality: Left; FOOT SURGERY Right x5 INCISION AND DRAINAGE FOOT Left [place] PROCEDURE MAZE AFIB OSTECTOMY CALCANEOUS Left 09/10/2024 Procedure: ANKLE PARTIAL CALCANECTOMY; Surgeon: Dallas Camejo MD; Location: [facility] OR; Service: Orthopaedics; Laterality: Left; wOUND PARTIALLY [...] lives alone. reports good friend supportand suportive medardo Patient Goals (Occupational Profile) to return home [...] Progressive Mobility Level Achieved Transferring to Chair [facility] Daily Activity Putting on and taking off Lower Body Clothing? 2 Bathing (including washing/rinsing/drying)? 3 Toileting (includes using toilet, bedpan, or urinal)? 2 Putting on and taking off upper body clothing? 4 Taking care of personal grooming such as brushing teeth? 3 Eating meals? 4 [facility] Daily Activity Score 18 Therapy Assessment/Plan [...] OT goal 1 Bathing Goal 1 (OT) [place] Level/Cues Needed (Bathing Goal 1, OT) modified independence Activity/Device (Bathing Goal 1, OT) bathing skills, all Time Frame (Bathing Goal 1, OT) 2 weeks Dressing Goal 1 (OT) Activity/Device (Dressing Goal 1, OT) lower body dressing Time Frame (Dressing Goal 1, OT) 1 week [place]/Cues Needed (Dressing Goal 1, OT) modified independence Toileting Goal 1 (OT) Activity/Device (Toileting Goal 1, OT) toileting skills, all Time Frame (Toileting Goal 1, OT) 1 week [place] Level/Cues Needed (Toileting Goal 1, OT) modified [...] from the original note were not included. [facility] [address] [facility] [id number] OPERATIVE REPORT Patient Name: Blas Genao Date [...] Type Source Tests Collected by Time Destination [id number] : Left leg below the knee amputation [...] Findings: see op note Anesthesia: general Staff: Internal Medicine Veterinary Technician: Mary Emery RN Scrub Precepting: Binta Griffith CST Internal Medicine Veterinary Technician Relief: Cynthia Desai RN Estimated Blood Loss: * No values recorded between 11/05/2024 2:06 PM and 11/05/2024 3:22 PM * Specimens: ID Type Source Tests Collected by Time Destination [id number] : Left leg below the knee amputation [...] Surgeon(s): SHUBHAM Triana MD Anesthesia: general Staff: Internal Medicine Veterinary Technician: Mary Emery RN Scrub Precepting: Binta Griffith CST Internal Medicine Veterinary Technician Relief: Cynthai Desai RN Estimated Blood Loss: 25 ml Specimens: ID Type Source Tests Collected by Time Destination [id number] : Left leg below the knee amputation [...] cards Consults: Needs a postop eval from [facility]. Already being followed by ID, cards, and [...] Plan for OR today. Will have TATIANNA. Roofer Helper Vinyl Coating to follow Naveen Kebede 11/05/2024 9:29 AM [...] doing TATIANNA first is not going to pipe changer. Leg wounds are like the source that has now seeded the valves and likely have involved thePPM. Will eventually need PP, evaluation and extraction afterwards. - Proceed with BKA - ABx per ID - Will need TATIANNA afterwards - Consider CT head to rule out septic emboli to brain petty with acute mental status change. MD Emiliana Perez Cardiology T: [phone] F: [phone] Main Office: [address] [place] [address] * Provider Documentation Query - Juaquin Kern [...] at discharge summary. Tracy Lopez RN, CDS [phone] * Plan of Care - Belkys Diaz RN - 11/05/2024 1:54 AM EST Problem: Adult Inpatient Plan of Care Goal: Plan of Care Review Outcome: Progressing Flowsheets (Taken 11/05/2024 0344) Plan of Care Reviewed With: patient Progress: [...] Care Review Outcome: Progressing Flowsheets (Taken 11/04/2024 1827) Plan of Care Reviewed With: patient Progress: [...] AM * Plan of Care - Patricia uSn RN - 11/03/2024 6:39 PM EST Problem: [...] PM * Plan of Care - Jemma uBllTHIEN - 11/03/2024 3:31 PM EST Initial Case Management Care Plan Note Assessment completed with patient and/or patient's telephone claims representative, medical record review and discussion with clinical team. CC met with the patient using social distancing. Provided a Case Coordination packet with contact information, CC pamphlet and Your Next Step: Care Outside the Hospital brochure to the patient and/or patient telephone claims representative. Summary: 63 yo M admitted for [...] home health services. Patient is active with [facility] for SN & CHIEF METER READER svs. Patient went to a local wound [...] -Driss KEITAA for resumption of SN & CHIEF METER READER, requested addition of PT & OT to POC Barriers to discharge: OR 11/05 Building Services Supervisor - [facility] requested ID plan PT/OT evals [...] at Transition: (inpatient rehab) home health care group home other (see comments) Patient/Family Anticipates Transition to: home with help/services inpatient rehabilitation facility Current Outpatient/Agency/Support Group: (Driss BLACKMAN - SN 3 weekly (wound care) & CHIEF METER READER x 2 weekly) homecare agency [facility] [...] 12/07/2024 1:30 PM EDT Appointment [facility] Heart & Vascular [place] - Electrophysiology [address] [place] [id number] Gretel Hinds, MARKET EDITOR [address] [address] 12/14/2024 2:00 PM EDT Office Visit [facility] [address] [place] [address] [id number] Dallas Camejo MD [address] [place] [address] 12/16/2024 8:30 AM EDT Office Visit [facility] Infectious Disease [address] [place] [phone] Ena Mtz MD [address] [place] [address] Pending Results Name Type Priority Associated Diagnoses [...] AM EST PM SINGLE LEAD EVAL WITH PROGRAM,[id number] Routine 11/18/2024 7:45 AM EST COMPLETE BLOOD [...] EST PM DUAL LEAD EVAL WITH PROGRAMMING, [id number] Routine 11/12/2024 1:15 PM EST POCT GLUCOSE, [...] EST PM DUAL LEAD EVAL WITH PROGRAMMING, [id number] Routine 11/11/2024 4:33 PM EST ECHOCARDIOGRAM TRANSESOPHAGEAL [...] CARE TEST O RDER[place]UC[place] Performing Organization Address [facility] de Phone Number [facility] See Below * (ABNORMAL) POCT Glucose, Fingerstick (11/25/2024 8:40 AM EST) POC Glucose 150(H) 65 - 99 mg/dL 11/25/2024 8:41 AM EST Blood specimen / Unknown 11/25/2024 8:40 AM EST 11/25/2024 8:41 AM EST Dallas Camejo MD POINT OF CARE TEST O RDERABLES Performing Organization Address [facility] Co de Phone Number HOSPITAL LAB See Below * (ABNORMAL) POCT Glucose, Fingerstick (11/24/2024 4:56 PM EST) POC Glucose 105(H) 65 - 99 mg/dL 11/24/2024 5:00 PM EST Blood specimen / Unknown 11/24/2024 4:56 PM EST 11/24/2024 5:00 PM EST Dallas Camejo MD POINT OF CARE TEST O RDERALUCILLE Performing Organization Address [facility]/ZIP Co de Phone Number HOSPITAL LAB See [...] CARE TEST O RDERALUCILLE Performing Organization Address [facility] Co [facility] Number [facility] See Below * (ABNORMAL) POCT Glucose, Fingerstick (11/24/2024 7:52 AM EST) POC Glucose 103(H) 65 - 99 mg/dL 11/24/2024 8:11 AM EST Blood specimen / Unknown 11/24/2024 7:52 AM EST 11/24/2024 8:11 AM EST Dallas Camejo MD POINT OF CARE TEST O RDERALUCILLE Performing Organization Address [facility] Co [facility] See Below * (ABNORMAL) Complete Blood Count WITHOUT Differential - in AM (11/24/2024 6:56 AM EST) Pathologist [facility] White Blood Cell Count 10.0 4.0 - 11.0 Thou/uL 11/24/2024 9:12 AM [facility] Platelet Count 366 150 - 450 Thou/uL 11/24/2024 9:12 AM [facility] Hemoglobin 9.0(L) 13.0 - 17.7 g/dL 11/24/2024 9:12 AM [facility] Hematocrit 29.5(L) 39.0 - 54.0 % 11/24/2024 9:12 AM [facility] Red Blood Cell Count 3.25(L) 4.50 - 6.20 Mil/uL 11/24/2024 9:12 AM [facility] MCV 91 80 - 100 fL 11/24/2024 9:12 AM [facility] MCH 27.7 27.0 - 31.0 pg 11/24/2024 9:12 AM [facility] MCHC 30.5 30.0 - 36.0 g/dL 11/24/2024 9:12 AM [facility] RDW 18.0(H) 11.5 - 14.5 % 11/24/2024 9:12 AM [facility] MPV 10.8 7.5 - 12.5 fL 11/24/2024 9:12 AM [facility] Blood Blood specimen / Unknown 11/24/2024 6:56 AM EST 11/24/2024 8:52 AM EST Gianluca Calles MD LAB BLOOD ORDERABLES Performing Organization Address City/State/[facility] [place] [address], [place] [address] * (ABNORMAL) Comprehensive Metabolic Panel (AM) (11/24/2024 6:56 AM EST) Glucose 99 65 - 99 mg/dL 11/24/2024 9:28 AM [facility] Comment:Fasting: <100 mg/dL, Non-Fasting: <200 mg/dL (ADA 2005) Blood Urea Nitrogen (BUN) 35(H) 8 - 21 mg/dL 11/24/2024 9:28 AM [facility] Creatinine 1.6(H) 0.5 - 1.3 mg/dL 11/24/2024 9:28 AM [facility] eGFR 48(L) >59 11/24/2024 9:28 AM [facility] Comment:CKD-EPI (2020) in mL /min/1.73 sq meters. Sodium 139 136 - 145 mmol/L 11/24/2024 9:28 AM [facility] Potassium 3.8 3.4 - 5.3 mmol/L 11/24/2024 9:28 AM [facility] Chloride 102 98 - 107 mmol/L 11/24/2024 9:28 AM [facility] CO2 24 22 - 33 mmol/L 11/24/2024 9:28 AM [facility] Calcium 8.9 8.7 - 10.5 mg/dL 11/24/2024 9:28 AM [facility] Alkaline Phosphatase 97 45 - 128 U/L 11/24/2024 9:28 AM [facility] Aspartate Aminotrans (AST) 14 10 - 55 U/L 11/24/2024 9:28 AM [facility] Alanine Aminotrans (ALT) 20 10 - 55 U/L 11/24/2024 9:28 AM [facility] Bilirubin, Total 0.2 0.2 - 1.0 mg/dL 11/24/2024 9:28 AM [facility] Protein, Total 6.7 6.3 - 8.3 g/dL 11/24/2024 9:28 AM [facility] Albumin 3.1(L) 3.4 - 4.8 g/dL 11/24/2024 9:28 AM [facility] BUN/Creatinine Ratio 22 10.0 - 25.0 Ratio 11/24/2024 9:28 AM [facility] Globulin 3.6 1.5 - 3.9 g/dL 11/24/2024 9:28 AM [facility] Albumin/Globulin Ratio 0.9(L) 1.0 - 3.0 Ratio 11/24/2024 9:28 AM [facility] Anion Gap 13 7 - 17 11/24/2024 9:28 AM [facility] Blood Blood specimen / Unknown 11/24/2024 6:56 AM EST 11/24/2024 8:52 AM EST Gianluca Calles MD LAB BLOOD ORDERABLES [address] [address], [address] [address] * (ABNORMAL) POCT Glucose, Fingerstick (11/23/2024 8:48 PM EST) POC Glucose 116(H) 65 - 99 mg/dL 11/23/2024 8:49 PM EST Blood specimen / Unknown 11/23/2024 8:48 PM EST 11/23/2024 8:49 PM EST Dallas Camejo MD POINT OF CARE TEST O RDERALUCILLE Performing Organization Address [facility] LAB See Below * POCT Glucose, Fingerstick (11/23/2024 4:35 PM EST) POC Glucose 84 65 - 99 mg/dL 11/23/2024 4:36 PM EST Blood specimen / Unknown 11/23/2024 4:35 PM EST 11/23/2024 4:36 PM EST Dallas Camejo MD POINT OF CARE TEST O RDER[place]UC[place] Performing Organization Address [facility] LAB See Below * (ABNORMAL) POCT Glucose, Fingerstick (11/23/2024 11:35 AM EST) POC Glucose 151(H) 65 - 99 mg/dL 11/23/2024 11:36 AM EST Blood specimen / Unknown 11/23/2024 11:35 AM EST 11/23/2024 11:36 AM EST Dallas Camejo MD POINT OF CARE TEST O R[place] Performing Organization Address [facility] LAB See Below * Influenza A/B, RSV, SARS-CoV-2 BALJINDER Multiplex (FLUVID) (11/23/2024 10:45 AM EST) Pathologist [facility] Influenza A Virus Not Detected Not Detected 11/23/2024 12:00 PM [facility] Influenza B Virus Not Detected Not Detected 11/23/2024 12:00 PM [facility] SARS-CoV-2 Not Detected Not Detected 11/23/2024 12:00 PM [facility] Respiratory Syncytial Virus Not Detected Not Detected 11/23/2024 12:00 PM [facility] Comment Negative results do not preclude SARS-CoV-2, Influenza or RSV infection and should not be used as the sole basis for treatment or other patient management decisions. 11/23/2024 12:00 PM EST [facility] Swab, Nasopharyngeal Nasopharyngeal swab / Unknown 11/23/2024 10:45 AM EST 11/23/2024 11:08 AM EST Gianluca Calles MD MICROBIOLOGY - GENER AL ORDERABLES Performing Organization Address [facility] Co de Phone Number [address] [address], [address] [address] * (ABNORMAL) POCT Glucose, Fingerstick (11/23/2024 7:34 AM EST) POC Glucose 126(H) 65 - 99 mg/dL 11/23/2024 7:35 AM EST Blood specimen / Unknown 11/23/2024 7:34 AM EST 11/23/2024 7:35 AM EST Dallas Camejo MD POINT OF CARE TEST O RDERABLES Performing Organization Address City/[facility]/ZIP Co de Phone Number HOSPITAL LAB See Below * (ABNORMAL) C-REACTIVE PROTEIN (11/23/2024 6:43 AM EST) C-Reactive Protein 4.88(H) 0 - 0.49 mg/dL 11/23/2024 11:53 AM EST [facility] 11/23/2024 6:43 AM EST 11/23/2024 6:49 AM EST Gianluca Calles MD LAB BLOOD ORDERABLES Performing Organization Address [facility] Co de Phone Number [address] [address], [address] [address] * (ABNORMAL) Erythrocyte Sedimentation Rate (ESR) (11/23/2024 6:43 AM EST) Erythrocyte Sediment Rate (ESR) 62(H) <20 MM/HR 11/23/2024 12:07 PM EST [facility] Blood specimen / Unknown 11/23/2024 6:43 AM EST 11/23/2024 6:49 AM EST Gianluca Calles MD [place] [address], [address] [address] * (ABNORMAL) HEPATIC FUNCTION PANEL (11/23/2024 6:43 AM EST) Pathologist [facility] Alkaline Phosphatase 103 45 - 128 U/L 11/23/2024 11:53 AM [facility] Aspartate Aminotrans (AST) 22 10 - 55 U/L 11/23/2024 11:53 AM [facility] Alanine Aminotrans (ALT) 28 10 - 55 U/L 11/23/2024 11:53 AM [facility] Bilirubin, Total 0.2 0.2 - 1.0 mg/dL 11/23/2024 11:53 AM [facility] Protein, Total 6.6 6.3 - 8.3 g/dL 11/23/2024 11:53 AM [facility] Albumin 3.1(L) 3.4 - 4.8 g/dL 11/23/2024 11:53 AM [facility] Bilirubin, Direct 0.1 0 - 0.2 mg/dL 11/23/2024 11:53 AM [facility] Globulin 3.5 1.5 - 3.9 g/dL 11/23/2024 11:53 AM [facility] Albumin/Globulin Ratio 0.9(L) 1.0 - 3.0 Ratio 11/23/2024 11:53 AM [facility] 11/23/2024 6:43 AM EST 11/23/2024 6:49 AM EST Gianluca Calles MD LAB BLOOD ORDERABLES [address] [address], [address] [address] * CREATINE KINASE (CK) (11/23/2024 6:43 AM EST) Creatine Kinase (CK) 36 24 - 204 U/L 11/23/2024 11:53 AM [facility] 11/23/2024 6:43 AM EST 11/23/2024 6:49 AM EST Gianluca Calles MD LAB BLOOD ORDERABLES Performing Organization Address City/[facility]/ZIP Co de Phone Number [address] [address], [address] [address] * (ABNORMAL) Complete Blood Count WITHOUT Differential - in AM (11/23/2024 6:43 AM EST) White Blood Cell Count 10.8 4.0 - 11.0 Thou/uL 11/23/2024 7:01 AM [facility] Platelet Count 353 150 - 450 Thou/uL 11/23/2024 7:01 AM [facility] Hemoglobin 8.7(L) 13.0 - 17.7 g/dL 11/23/2024 7:01 AM [facility] Hematocrit 28.3(L) 39.0 - 54.0 % 11/23/2024 7:01 AM [facility] Red Blood Cell Count 3.14(L) 4.50 - 6.20 Mil/uL 11/23/2024 7:01 AM [facility] MCV 90 80 - 100 fL 11/23/2024 7:01 AM [facility] MCH 27.7 27.0 - 31.0 pg 11/23/2024 7:01 AM [facility] MCHC 30.7 30.0 - 36.0 g/dL 11/23/2024 7:01 AM [facility] RDW 18.0(H) 11.5 - 14.5 % 11/23/2024 7:01 AM [facility] MPV 10.4 7.5 - 12.5 fL 11/23/2024 7:01 AM [facility] Blood Blood specimen / Unknown 11/23/2024 6:43 AM EST 11/23/2024 6:49 AM EST Gianluca Calles MD LAB BLOOD ORDERABLES [address] [address], [address] [address] * Magnesium (AM) (11/23/2024 6:43 AM EST) Magnesium 2.2 1.6 - 2.7 mg/dL 11/23/2024 7:22 AM [facility] Blood Blood specimen / Unknown 11/23/2024 6:43 AM EST 11/23/2024 6:49 AM EST Gianluca Calles MD LAB BLOOD ORDERABLES Performing Organization Address City/[facility]/[place] [address], [place] [address] * (ABNORMAL) Basic Metabolic Panel (AM) (11/23/2024 6:43 AM EST) Glucose 114(H) 65 - 99 mg/dL 11/23/2024 7:22 AM [facility] Comment:Fasting: <100 mg/dL, Non-Fasting: <200 mg/dL (ADA 2004) Blood Urea Nitrogen (BUN) 31(H) 8 - 21 mg/dL 11/23/2024 7:22 AM [facility] Creatinine 1.5(H) 0.5 - 1.3 mg/dL 11/23/2024 7:22 AM [facility] eGFR 52(L) >59 11/23/2024 7:22 AM [facility] Comment:CKD-EPI (2020) in mL /min/1.73 sq meters. Sodium 140 136 - 145 mmol/L 11/23/2024 7:22 AM [facility] Potassium 4.0 3.4 - 5.3 mmol/L 11/23/2024 7:22 AM [facility] Chloride 104 98 - 107 mmol/L 11/23/2024 7:22 AM [facility] CO2 25 22 - 33 mmol/L 11/23/2024 7:22 AM [facility] Anion Gap 11 7 - 17 11/23/2024 7:22 AM [facility] Calcium 9.0 8.7 - 10.5 mg/dL 11/23/2024 7:22 AM EST [facility] BUN/Creatinine Ratio 21 10.0 - 25.0 Ratio 11/23/2024 7:22 AM EST [facility] Blood Blood specimen / Unknown 11/23/2024 6:43 AM EST 11/23/2024 6:49 AM EST Gianluca Calles MD LAB BLOOD ORDERABLES [address] [address], [address] [address] * (ABNORMAL) POCT Glucose, Fingerstick (11/22/2024 9:02 PM EST) POC Glucose 138(H) 65 - 99 mg/dL 11/22/2024 9:02 PM EST Blood specimen / Unknown 11/22/2024 9:02 PM EST 11/22/2024 9:03 PM EST Dallas Camejo MD POINT OF CARE TEST O RDERABLES [facility] See Below * (ABNORMAL) POCT [...] Session [id number] PACEART Implantable Pulse Generator Laborer Wood Preserving Plant [employer] PACEART Implantable Pulse Generator Model [id number] Micra AV2 PACEART Implantable Pulse Generator Serial Number [id number] PACEART Implantable Pulse Generator Type Pacemaker PACEART [...] last reset 99.86 % PACEART Otf Statistic CARDIOGRAPH OPERATOR Percent 100.00 % PACEART Otf Statistic VS Percent 0 % PACEART Anatomical Region Laterality Modality Other 11/22/2024 1:58 PM EST Narrative 11/28/2024 10:40 AM EST Micra AV leadless Pacemaker evaluation completed on B10E. Per patient request and verbal order from SHUBHAM Pitts: LRL increased from 50 bpm to 60 bpm. Presenting rhythm: AM/CARDIOGRAPH OPERATOR @ 62 bpm. Underlying rhythm: CHB. AM/CARDIOGRAPH OPERATOR pacing 81%, with total V-pacing 100%. [...] POCT Glucose, Fingerstick (11/22/2024 7:35 AM EST) [facility] POC Glucose 194(H) 65 - 99 mg/dL 11/22/2024 7:37 AM EST Blood specimen / Unknown 11/22/2024 7:35 AM EST 11/22/2024 7:37 AM EST Dallas Camejo MD [facility] See Below * Magnesium (AM) (11/22/2024 7:31 AM EST) [facility] Magnesium 2.0 1.6 - 2.7 mg/dL 11/22/2024 8:17 AM EST [facility] Blood (Plasma/Serum) 11/22/2024 7:31 AM EST 11/22/2024 7:54 AM EST Gianluca Calles MD LAB BLOOD ORDERABLES Performing Organization Address [facility] [place] [address], [place] [address] * (ABNORMAL) Complete Blood Count WITHOUT Differential - in AM (11/22/2024 7:31 AM EST) [facility] White Blood Cell Count 12.1(H) 4.0 - 11.0 Thou/uL 11/22/2024 8:19 AM [facility] Platelet Count 333 150 - 450 Thou/uL 11/22/2024 8:19 AM [facility] Hemoglobin 8.1(L) 13.0 - 17.7 g/dL 11/22/2024 8:19 AM [facility] Hematocrit 26.2(L) 39.0 - 54.0 % 11/22/2024 8:19 AM [facility] Red Blood Cell Count 2.88(L) 4.50 - 6.20 Mil/uL 11/22/2024 8:19 AM [facility] MCV 91 80 - 100 fL 11/22/2024 8:19 AM [facility] MCH 28.1 27.0 - 31.0 pg 11/22/2024 8:19 AM [facility] MCHC 30.9 30.0 - 36.0 g/dL 11/22/2024 8:19 AM [facility] RDW 18.0(H) 11.5 - 14.5 % 11/22/2024 8:19 AM [facility] MPV 10.5 7.5 - 12.5 fL 11/22/2024 8:19 AM [facility] Blood Blood specimen / Unknown 11/22/2024 7:31 AM EST 11/22/2024 7:54 AM EST Gianluca Calles MD [place] [address], [place] [address] * (ABNORMAL) Basic Metabolic Panel (AM) (11/22/2024 7:31 AM EST) Glucose 178(H) 65 - 99 mg/dL 11/22/2024 8:17 AM [facility] Comment:Fasting: <100 mg/dL, Non-Fasting: <200 mg/dL (ADA 2004) Blood Urea Nitrogen (BUN) 36(H) 8 - 21 mg/dL 11/22/2024 8:17 AM [facility] Creatinine 1.6(H) 0.5 - 1.3 mg/dL 11/22/2024 8:17 AM [facility] eGFR 48(L) >59 11/22/2024 8:17 AM [facility] Comment:CKD-EPI (2020) in mL /min/1.73 sq meters. Sodium 137 136 - 145 mmol/L 11/22/2024 8:17 AM [facility] Potassium 4.2 3.4 - 5.3 mmol/L 11/22/2024 8:17 AM [facility] Chloride 101 98 - 107 mmol/L 11/22/2024 8:17 AM [facility] CO2 27 22 - 33 mmol/L 11/22/2024 8:17 AM [facility] Anion Gap 9 7 - 17 11/22/2024 8:17 AM [facility] Calcium 8.8 8.7 - 10.5 mg/dL 11/22/2024 8:17 AM [facility] BUN/Creatinine Ratio 23 10.0 - 25.0 Ratio 11/22/2024 8:17 AM [facility] Blood (Plasma/Serum) 11/22/2024 7:31 AM EST 11/22/2024 7:54 AM EST Gianluca Calles MD [place] [address], [place] [address] * (ABNORMAL) POCT Glucose, Fingerstick (11/21/2024 9:28 [...] Glucose, Fingerstick (11/21/2024 11:56 AM EST) Pathologist [facility] POC Glucose 246(H) 65 - 99 mg/dL 11/21/2024 12:03 PM EST Blood specimen / Unknown 11/21/2024 11:56 AM EST 11/21/2024 12:03 PM EST Dallas Camejo MD POINT OF CARE TEST O RDERABLES Performing Organization Address [facility] Co de Phone Number [facility] See Below * (ABNORMAL) POCT Glucose, Fingerstick (11/21/2024 7:45 AM EST) Pathologist [facility] POC Glucose 175(H) 65 - 99 mg/dL 11/21/2024 7:54 AM EST Blood specimen / Unknown 11/21/2024 7:45 AM EST 11/21/2024 7:54 AM EST Dallas Camejo MD POINT OF CARE TEST O RDERALUCILLE Performing Organization Address [facility] de Phone Number [facility] See Below * Magnesium (AM) (11/21/2024 6:58 AM EST) [facility] Magnesium 2.1 1.6 - 2.7 mg/dL 11/21/2024 8:14 AM EST [facility] Blood (Plasma/Serum) 11/21/2024 6:58 AM EST 11/21/2024 7:36 AM EST Gianluca Calles MD LAB BLOOD ORDERABLES Performing Organization Address [facility] de Phone Number [address] [address], [address] [address] * (ABNORMAL) Complete Blood Count WITHOUT Differential - in AM (11/21/2024 6:58 AM EST) [facility] White Blood Cell Count 14.0(H) 4.0 - 11.0 Thou/uL 11/21/2024 7:55 AM EST [facility] Platelet Count 329 150 - 450 Thou/uL 11/21/2024 7:55 AM EST [facility] Hemoglobin 8.2(L) 13.0 - 17.7 g/dL 11/21/2024 7:55 AM [facility] Hematocrit 26.7(L) 39.0 - 54.0 % 11/21/2024 7:55 AM [facility] Red Blood Cell Count 2.95(L) 4.50 - 6.20 Mil/uL 11/21/2024 7:55 AM [facility] MCV 91 80 - 100 fL 11/21/2024 7:55 AM [facility] MCH 27.8 27.0 - 31.0 pg 11/21/2024 7:55 AM [facility] MCHC 30.7 30.0 - 36.0 g/dL 11/21/2024 7:55 AM [facility] RDW 17.8(H) 11.5 - 14.5 % 11/21/2024 7:55 AM [facility] MPV 10.4 7.5 - 12.5 fL 11/21/2024 7:55 AM [facility] Blood Blood specimen / Unknown 11/21/2024 6:58 AM EST 11/21/2024 7:36 AM EST Gianluca Calles MD [place] [address], [place] [address] * (ABNORMAL) Basic Metabolic Panel (AM) (11/21/2024 6:58 AM EST) Glucose 153(H) 65 - 99 mg/dL 11/21/2024 8:14 AM [facility] Comment:Fasting: <100 mg/dL, Non-Fasting: <200 mg/dL (ADA 2004) Blood Urea Nitrogen (BUN) 38(H) 8 - 21 mg/dL 11/21/2024 8:14 AM [facility] Creatinine 1.8(H) 0.5 - 1.3 mg/dL 11/21/2024 8:14 AM [facility] eGFR 42(L) >59 11/21/2024 8:14 AM [facility] Comment:CKD-EPI (2020) in mL /min/1.73 sq meters. Sodium 136 136 - 145 mmol/L 11/21/2024 8:14 AM [facility] Potassium 3.7 3.4 - 5.3 mmol/L 11/21/2024 8:14 AM [facility] Chloride 99 98 - 107 mmol/L 11/21/2024 8:14 AM [facility] CO2 27 22 - 33 mmol/L 11/21/2024 8:14 AM [facility] Anion Gap 10 7 - 17 11/21/2024 8:14 AM [facility] Calcium 8.8 8.7 - 10.5 mg/dL 11/21/2024 8:14 AM [facility] BUN/Creatinine Ratio 21 10.0 - 25.0 Ratio 11/21/2024 8:14 AM [facility] Blood (Plasma/Serum) 11/21/2024 6:58 AM EST 11/21/2024 7:36 AM EST Gianluca Calles MD [place] [address], [place] [address] * (ABNORMAL) POCT Glucose, Fingerstick (11/20/2024 8:16 [...] CARE TEST O RDERABLES Performing Organization Address [facility] Phone Number [facility] See Below * (ABNORMAL) POCT Glucose, Fingerstick (11/20/2024 12:07 PM EST) POC Glucose 167(H) 65 - 99 mg/dL 11/20/2024 12:12 PM EST Blood specimen / Unknown 11/20/2024 12:07 PM EST 11/20/2024 12:12 PM EST Dallas Camejo MD POINT OF CARE TEST O RDERABLES Performing Organization Address [facility] Number [facility] See Below * (ABNORMAL) POCT Glucose, Fingerstick (11/20/2024 7:58 AM EST) POC Glucose 166(H) 65 - 99 mg/dL 11/20/2024 8:02 AM EST Blood specimen / Unknown 11/20/2024 7:58 AM EST 11/20/2024 8:02 AM EST Dallas Camejo MD POINT OF CARE TEST O RDERABLES Performing Organization Address [facility] Phone Number [facility] See Below * Magnesium (AM) (11/20/2024 6:59 AM EST) Magnesium 2.2 1.6 - 2.7 mg/dL 11/20/2024 8:04 AM EST [facility] Blood (Plasma/Serum) 11/20/2024 6:59 AM EST 11/20/2024 7:31 AM EST Gianluca Calles MD LAB BLOOD ORDERABLES Performing Organization Address [facility] Co de Phone Number [address] [address], [address] [address] * (ABNORMAL) Complete Blood Count WITHOUT Differential - in AM (11/20/2024 6:59 AM EST) Pathologist [facility] White Blood Cell Count 11.9(H) 4.0 - 11.0 Thou/uL 11/20/2024 7:45 AM [facility] Platelet Count 339 150 - 450 Thou/uL 11/20/2024 7:45 AM [facility] Hemoglobin 8.3(L) 13.0 - 17.7 g/dL 11/20/2024 7:45 AM [facility] Hematocrit 27.2(L) 39.0 - 54.0 % 11/20/2024 7:45 AM [facility] [facility] Red Blood Cell Count 3.01(L) 4.50 - 6.20 Mil/uL 11/20/2024 7:45 AM [facility] MCV 90 80 - 100 fL 11/20/2024 7:45 AM [facility] MCH 27.6 27.0 - 31.0 pg 11/20/2024 7:45 AM [facility] MCHC 30.5 30.0 - 36.0 g/dL 11/20/2024 7:45 AM [facility] RDW 17.5(H) 11.5 - 14.5 % 11/20/2024 7:45 AM [facility] MPV 10.7 7.5 - 12.5 fL 11/20/2024 7:45 AM [facility] Blood Blood specimen / Unknown 11/20/2024 6:59 AM EST 11/20/2024 7:31 AM EST Gianluca Calles MD LAB BLOOD ORDERABLES [address] [address], [address] [address] * (ABNORMAL) Basic Metabolic Panel (AM) (11/20/2024 6:59 AM EST) [facility] Glucose 155(H) 65 - 99 mg/dL 11/20/2024 8:04 AM [facility] Comment:Fasting: <100 mg/dL, Non-Fasting: <200 mg/dL (ADA 2005) Blood Urea Nitrogen (BUN) 47(H) 8 - 21 mg/dL 11/20/2024 8:04 AM [facility] Creatinine 1.9(H) 0.5 - 1.3 mg/dL 11/20/2024 8:04 AM [facility] eGFR 39(L) >59 11/20/2024 8:04 AM [facility] Comment:CKD-EPI (2020) in mL /min/1.73 sq meters. Sodium 137 136 - 145 mmol/L 11/20/2024 8:04 AM [facility] Potassium 3.8 3.4 - 5.3 mmol/L 11/20/2024 8:04 AM [facility] Chloride 98 98 - 107 mmol/L 11/20/2024 8:04 AM [facility] CO2 30 22 - 33 mmol/L 11/20/2024 8:04 AM [facility] Anion Gap 9 7 - 17 11/20/2024 8:04 AM [facility] Calcium 9.0 8.7 - 10.5 mg/dL 11/20/2024 8:04 AM [facility] BUN/Creatinine Ratio 25 10.0 - 25.0 Ratio 11/20/2024 8:04 AM [facility] Blood (Plasma/Serum) 11/20/2024 6:59 AM EST 11/20/2024 7:31 AM EST Gianluca Calles MD LAB BLOOD ORDERABLES Performing Organization Address [facility]/[place] [address], [place] [id number] * (ABNORMAL) POCT Glucose, Fingerstick (11/19/2024 4:13 PM EST) POC Glucose 274(H) 65 - 99 mg/dL 11/19/2024 4:14 PM EST Blood specimen / Unknown 11/19/2024 4:13 PM EST 11/19/2024 4:14 PM EST Dallas Camejo MD POINT OF CARE TEST O RDERABLES HOSPITAL LAB See Below * (ABNORMAL) Urinalysis with Reflex to Microscopic (11/19/2024 4:00 PM EST) Color Yellow 11/19/2024 4:30 PM [facility] Clarity Clear 11/19/2024 4:30 PM [facility] Specific [place] 1.008 1.003 - 1.030 11/19/2024 4:30 PM [facility] pH 6.0 5.0 - 8.0 11/19/2024 4:30 PM [facility] Leukocyte Esterase Large(A) Negative 11/19/2024 4:30 PM [facility] Nitrite Negative Negative 11/19/2024 4:30 PM [facility] Protein Negative Negative 11/19/2024 4:30 PM [facility] Glucose 0 0 - 99 mg/dL 11/19/2024 4:30 PM [facility] Ketones Negative Negative 11/19/2024 4:30 PM [facility] Blood Negative Negative 11/19/2024 4:30 PM [facility] Bilirubin Negative Negative 11/19/2024 4:30 PM [facility] WBC >25(H) 0 - 4 per hpf 11/19/2024 4:30 PM [facility] RBC 2 0 - 4 per hpf 11/19/2024 4:30 PM [facility] X-Specimen 16 Voided urine specimen / Unknown 11/19/2024 4:00 PM EST 11/19/2024 4:18 PM EST Anmol Reynoso MD URINE ORDERABLES Performing Organization Address City/State/[facility] [place] [address], [place] [address] * OSMOLALITY, URINE (11/19/2024 4:00 PM EST) Osmolality, Urine 201 50 - 1,200 mOsm/Kg 11/19/2024 6:20 PM [facility] Urine Urine specimen / Unknown 11/19/2024 4:00 PM EST 11/19/2024 4:19 PM EST Anmol Reynoso MD URINE ORDERABLES Performing Organization Address City/[facility] Co de Phone Number [address] [address], [address] [address] * Urea Nitrogen, Urine, Random (11/19/2024 4:00 PM EST) Urea Nitrogen, Random Urine 273 mg/dL 11/19/2024 5:43 PM EST [facility] Comment:Reference range not established for random specimen. Urine Urine specimen / Unknown 11/19/2024 4:00 PM EST 11/19/2024 4:19 PM EST Anmol Reynoso MD URINE ORDERABLES Performing Organization Address [facility] Co de Phone Number [address] [address], [address] [address] * SODIUM, URINE, RANDOM (11/19/2024 4:00 PM EST) Sodium, Urine Random 21 mmol/L 11/19/2024 5:43 PM EST [facility] Comment:Reference range not established for random specimen. Urine Urine specimen / Unknown 11/19/2024 4:00 PM EST 11/19/2024 4:19 PM EST Anmol Reynoso MD URINE ORDERABLES Performing Organization Address City/[facility] Co de Phone Number [address] [address], [address] [address] * CREATININE, URINE, RANDOM (11/19/2024 4:00 PM EST) Creatinine, Urine, Random 31 mg/dL 11/19/2024 5:43 PM EST [facility] Comment:Reference range not established for random specimen. Urine Urine specimen / Unknown 11/19/2024 4:00 PM EST 11/19/2024 4:19 PM EST Anmol Reynoso MD URINE ORDERABLES Performing Organization Address [facility] [place] [address], [place] [address] * Chloride, Urine, Random (11/19/2024 4:00 PM EST) Chloride, Urine, Random 23 mmol/L 11/19/2024 5:43 PM EST [facility] Comment:Reference range not established for random specimen. Urine Urine specimen / Unknown 11/19/2024 4:00 PM EST 11/19/2024 4:19 PM EST Anmol Reynoso MD URINE ORDERABLES Performing Organization Address [facility] [place] [address], [place] [address] * CVC INSERT (TUNNEL) W/O PORT GREATER [...] table. A preprocedure time-out was performed per [facility] protocol. The right neck and [...] access, a 26 cm long dual lumen 5-Angolan cuffed tunneled catheter was placed under fluoroscopic [...] table. A preprocedure time-out was performed per [facility] protocol. The right neck and [...] access, a 26 cm long dual lumen 5-Angolan cuffed tunneled catheter was placed under fluoroscopic [...] TEST O RDERALUCILLE Performing Organization Address City/[facility] Co de Phone Number HOSPITAL LAB See Below * (ABNORMAL) POCT Glucose, Fingerstick (11/19/2024 8:06 AM EST) Pathologist [facility] POC Glucose 190(H) 65 - 99 mg/dL 11/19/2024 8:08 AM EST Blood specimen / Unknown 11/19/2024 8:06 AM EST 11/19/2024 8:08 AM EST Dallas Camejo MD POINT OF CARE TEST O R[facility]UC[facility] [facility]PITAL LAB See Below * (ABNORMAL) Complete Blood Count WITHOUT Differential - Daily x2 (11/19/2024 7:54 AM EST) Pathologist [facility] White Blood Cell Count 10.1 4.0 - 11.0 Thou/uL 11/19/2024 8:48 AM EST [facility] Platelet Count 354 150 - 450 Thou/uL 11/19/2024 8:48 AM [facility] Hemoglobin 8.2(L) 13.0 - 17.7 g/dL 11/19/2024 8:48 AM [facility] Hematocrit 26.6(L) 39.0 - 54.0 % 11/19/2024 8:48 AM [facility] Red Blood Cell Count 2.99(L) 4.50 - 6.20 Mil/uL 11/19/2024 8:48 AM [facility] MCV 89 80 - 100 fL 11/19/2024 8:48 AM [facility] MCH 27.4 27.0 - 31.0 pg 11/19/2024 8:48 AM [facility] MCHC 30.8 30.0 - 36.0 g/dL 11/19/2024 8:48 AM [facility] RDW 17.2(H) 11.5 - 14.5 % 11/19/2024 8:48 AM [facility] MPV 10.8 7.5 - 12.5 fL 11/19/2024 8:48 AM [facility] Blood Blood specimen / Unknown 11/19/2024 7:54 AM EST 11/19/2024 8:33 AM EST Corbin Lamb APRN LAB BLOOD ORDERABL ES Performing Organization Address City/[facility]/[place] [address], [place] [address] * Magnesium (Daily x 2 days) (11/19/2024 7:54 AM EST) Magnesium 2.1 1.6 - 2.7 mg/dL 11/19/2024 9:00 AM [facility] Blood (Plasma/Serum) 11/19/2024 7:54 AM EST 11/19/2024 8:33 AM EST Corbin Lamb APRN LAB BLOOD ORDERABL ES Performing Organization Address City/[facility]/[place] [address], [place] [address] * (ABNORMAL) Basic Metabolic Panel (Daily x 2 days) (11/19/2024 7:54 AM EST) Glucose 169(H) 65 - 99 mg/dL 11/19/2024 9:00 AM [facility] Comment:Fasting: <100 mg/dL, Non-Fasting: <200 mg/dL (ADA 2004) Blood Urea Nitrogen (BUN) 43(H) 8 - 21 mg/dL 11/19/2024 9:00 AM [facility] Creatinine 1.8(H) 0.5 - 1.3 mg/dL 11/19/2024 9:00 AM [facility] eGFR 42(L) >59 11/19/2024 9:00 AM [facility] Comment:CKD-EPI (2020) in mL /min/1.73 sq meters. Sodium 132(L) 136 - 145 mmol/L 11/19/2024 9:00 AM [facility] Potassium 3.7 3.4 - 5.3 mmol/L 11/19/2024 9:00 AM [facility] Chloride 92(L) 98 - 107 mmol/L 11/19/2024 9:00 AM [facility] CO2 30 22 - 33 mmol/L 11/19/2024 9:00 AM [facility] Anion Gap 10 7 - 17 11/19/2024 9:00 AM [facility] Calcium 9.1 8.7 - 10.5 mg/dL 11/19/2024 9:00 AM [facility] BUN/Creatinine Ratio 24 10.0 - 25.0 Ratio 11/19/2024 9:00 AM [facility] Blood (Plasma/Serum) 11/19/2024 7:54 AM EST 11/19/2024 8:33 AM EST Corbin Lamb APRN LAB BLOOD ORDERABL ES [address] [address], [address] [address] * (ABNORMAL) POCT Glucose, Fingerstick (11/18/2024 9:04 PM EST) Pathologist [facility] POC Glucose 253(H) 65 - 99 mg/dL 11/18/2024 9:11 PM EST Blood specimen / Unknown 11/18/2024 9:04 PM EST 11/18/2024 9:11 PM EST Dallas Camejo MD POINT OF CARE TEST O RDERALUCILLE Performing Organization Address [facility] LAB See Below * (ABNORMAL) POCT Glucose, Fingerstick (11/18/2024 4:56 PM EST) POC Glucose 305(H) 65 - 99 mg/dL 11/18/2024 4:58 PM EST Blood specimen / Unknown 11/18/2024 4:56 PM EST 11/18/2024 4:57 PM EST Dallas Camejo MD POINT OF CARE TEST O [place]UC[place] Performing Organization Address [facility] LAB See Below * (ABNORMAL) POCT Glucose, Fingerstick (11/18/2024 12:00 PM EST) POC Glucose 253(H) 65 - 99 mg/dL 11/18/2024 12:01 PM EST Blood specimen / Unknown 11/18/2024 12:00 PM EST 11/18/2024 12:01 PM EST Dallas Camejo MD POINT OF CARE TEST O RDER[place]UC[place] Performing Organization Address [facility] Number [facility] LAB See Below * (ABNORMAL) POCT Glucose, Fingerstick (11/18/2024 7:53 AM EST) POC Glucose 129(H) 65 - 99 mg/dL 11/18/2024 7:58 AM EST Blood specimen / Unknown 11/18/2024 7:53 AM EST 11/18/2024 7:58 AM EST Dallas Camejo MD POINT OF CARE TEST O RDER[place]UC[place] Performing Organization Address [facility]/ZIP Co de Phone Number HOSPITAL LAB See Below * PM SINGLE LEAD EVAL WITH PROGRAM,[id number] (11/18/2024 7:45 AM EST) Date Time Interrogation Session ,,[id number] [phone] PACEART Implantable Pulse Generator Laborer Wood Preserving Plant [employer] PACEART Implantable Pulse Generator Model [id number] Micra AV2 PACEART Implantable Pulse Generator Serial Number [id number] PACEART Implantable Pulse Generator Type Pacemaker PACEART [...] last reset 92.76 % PACEART Otf Statistic CARDIOGRAPH OPERATOR Percent 99.88 % PACEART Otf Statistic VS Percent 0.12 % PACEART Anatomical Region Laterality Modality Other 11/18/2024 7:35 AM EST Narrative 11/19/2024 12:19 PM EST Pacemaker evaluation completed on B10E, device interrogation ordered for post-OP. Presenting rhythm: AM-CARDIOGRAPH OPERATOR @ 69 bpm. Underlying rhythm: No ventricular response greater than 40 bpm. AM-CARDIOGRAPH OPERATOR @ 84.8%. Battery and device parameters evaluated and within normal limits. Normal pacemaker function. Micra pacemakers do not record events. Sri Pena RN Corbin Lamb APRN CV CARDIAC SERVICE S ORDERABLES * Creatine Kinase (CK) (11/18/2024 7:15 AM EST) Creatine Kinase (CK) 49 24 - 204 U/L 11/18/2024 8:22 AM [facility] Blood (Plasma/Serum) 11/18/2024 7:15 AM EST 11/18/2024 7:47 AM EST Corbin Lamb APRN LAB BLOOD ORDERABL ES [address] [address], [address] [address] * (ABNORMAL) Complete Blood Count WITHOUT Differential - Daily x2 (11/18/2024 7:15 AM EST) White Blood Cell Count 12.3(H) 4.0 - 11.0 Thou/uL 11/18/2024 8:00 AM [facility] Platelet Count 349 150 - 450 Thou/uL 11/18/2024 8:00 AM [facility] Hemoglobin 8.1(L) 13.0 - 17.7 g/dL 11/18/2024 8:00 AM [facility] Hematocrit 25.5(L) 39.0 - 54.0 % 11/18/2024 8:00 AM [facility] Red Blood Cell Count 2.90(L) 4.50 - 6.20 Mil/uL 11/18/2024 8:00 AM [facility] MCV 88 80 - 100 fL 11/18/2024 8:00 AM [facility] MCH 27.9 27.0 - 31.0 pg 11/18/2024 8:00 AM [facility] MCHC 31.8 30.0 - 36.0 g/dL 11/18/2024 8:00 AM [facility] RDW 17.1(H) 11.5 - 14.5 % 11/18/2024 8:00 AM [facility] MPV 10.6 7.5 - 12.5 fL 11/18/2024 8:00 AM [facility] Blood Blood specimen / Unknown 11/18/2024 7:15 AM EST 11/18/2024 7:47 AM EST Corbin Lamb APRN LAB BLOOD ORDERABL ES [address] [place] [address], [facility] [address] [place] [address] * Magnesium (Daily x 2 days) (11/18/2024 7:15 AM EST) Magnesium 2.0 1.6 - 2.7 mg/dL 11/18/2024 8:22 AM [facility] Blood (Plasma/Serum) 11/18/2024 7:15 AM EST 11/18/2024 7:47 AM EST Corbin Adonis MARKET EDITOR LAB BLOOD ORDERABL ES [facility] [address] [place] [address], [place] [address] * (ABNORMAL) Basic Metabolic Panel (Daily x 2 days) (11/18/2024 7:15 AM EST) Glucose 114(H) 65 - 99 mg/dL 11/18/2024 8:22 AM [facility] Comment:Fasting: <100 mg/dL, Non-Fasting: <200 mg/dL (ADA 2005) Blood Urea Nitrogen (BUN) 45(H) 8 - 21 mg/dL 11/18/2024 8:22 AM [facility] Creatinine 1.8(H) 0.5 - 1.3 mg/dL 11/18/2024 8:22 AM [facility] eGFR 42(L) >59 11/18/2024 8:22 AM [facility] Comment:CKD-EPI (2020) in mL /min/1.73 sq meters. Sodium 129(L) 136 - 145 mmol/L 11/18/2024 8:22 AM [facility] Potassium 3.6 3.4 - 5.3 mmol/L 11/18/2024 8:22 AM [facility] Chloride 89(L) 98 - 107 mmol/L 11/18/2024 8:22 AM [facility] CO2 29 22 - 33 mmol/L 11/18/2024 8:22 AM [facility] Anion Gap 11 7 - 17 11/18/2024 8:22 AM [facility] Calcium 8.9 8.7 - 10.5 mg/dL 11/18/2024 8:22 AM EST [facility] BUN/Creatinine Ratio 25 10.0 - 25.0 Ratio 11/18/2024 8:22 AM EST [facility] Blood (Plasma/Serum) 11/18/2024 7:15 AM EST 11/18/2024 7:47 AM EST Corbin Lamb APRN LAB BLOOD ORDERABL ES [facility] [address] [place] [address], [facility] [address] [place] [address] * XR Chest 1 view (11/17/2024 5:48 [...] CARE TEST O RDERABLES Performing Organization Address [facility] Co de Phone Number [facility] LAB See Below * (ABNORMAL) POCT Glucose, Fingerstick (11/17/2024 1:26 PM EST) POC Glucose 140(H) 65 - 99 mg/dL 11/17/2024 1:30 PM EST Blood specimen / Unknown 11/17/2024 1:26 PM EST 11/17/2024 1:30 PM EST Dallas Camejo MD POINT OF CARE TEST O RDERABLES Performing Organization Address [facility] Phone Number [facility] LAB See Below * (ABNORMAL) POCT Glucose, Fingerstick (11/17/2024 11:18 AM EST) POC Glucose 153(H) 65 - 99 mg/dL 11/17/2024 11:22 AM EST Blood specimen / Unknown 11/17/2024 11:18 AM EST 11/17/2024 11:22 AM EST Dallas Camejo MD POINT OF CARE TEST O RDERABLES Performing Organization Address [facility] Co de Phone Number [facility] LAB See Below * Phosphorus (AM) (11/17/2024 8:16 AM EST) Phosphorus 3.5 2.7 - 4.5 mg/dL 11/17/2024 9:01 AM EST [facility] Blood (Plasma/Serum) 11/17/2024 8:16 AM EST 11/17/2024 8:30 AM EST Maddison Villalpando MD LAB BLOOD ORDERABLES Performing Organization Address [facility] Co de Phone Number [address] [address], [address] [address] * Magnesium (AM) (11/17/2024 8:16 AM EST) [facility] Magnesium 2.0 1.6 - 2.7 mg/dL 11/17/2024 9:01 AM EST [facility] Blood (Plasma/Serum) 11/17/2024 8:16 AM EST 11/17/2024 8:30 AM EST Maddison Villalpando MD LAB BLOOD ORDERABLES Performing Organization Address [facility]/ZIP Co de Phone Number [address] [address], [address] [address] * (ABNORMAL) POCT Glucose, Fingerstick (11/17/2024 7:20 AM EST) [facility] POC Glucose 206(H) 65 - 99 mg/dL 11/17/2024 7:31 AM EST Blood specimen / Unknown 11/17/2024 7:20 AM EST 11/17/2024 7:30 AM EST Dallas Camejo MD POINT OF CARE TEST O R[facility]ABLES HOSPITAL LAB See Below * (ABNORMAL) Complete Blood Count WITHOUT Differential - STAT (11/17/2024 5:00 AM EST) [facility] White Blood Cell Count 11.2(H) 4.0 - 11.0 Thou/uL 11/17/2024 5:26 AM [facility] Platelet Count 373 150 - 450 Thou/uL 11/17/2024 5:26 AM [facility] Hemoglobin 8.2(L) 13.0 - 17.7 g/dL 11/17/2024 5:26 AM [facility] Hematocrit 25.0(L) 39.0 - 54.0 % 11/17/2024 5:26 AM [facility] Red Blood Cell Count 2.94(L) 4.50 - 6.20 Mil/uL 11/17/2024 5:26 AM [facility] MCV 85 80 - 100 fL 11/17/2024 5:26 AM [facility] MCH 27.9 27.0 - 31.0 pg 11/17/2024 5:26 AM [facility] MCHC 32.8 30.0 - 36.0 g/dL 11/17/2024 5:26 AM [facility] RDW 16.5(H) 11.5 - 14.5 % 11/17/2024 5:26 AM [facility] MPV 10.4 7.5 - 12.5 fL 11/17/2024 5:26 AM [facility] Blood Blood specimen / Unknown 11/17/2024 5:00 AM EST 11/17/2024 5:09 AM EST Adithya Sheriff PA-C LAB BLOOD ORDERAB LES Performing Organization Address City/State/[facility] [place] [address], [place] [address] * (ABNORMAL) Comprehensive Metabolic Panel (AM) (11/17/2024 5:00 AM EST) Glucose 171(H) 65 - 99 mg/dL 11/17/2024 6:55 AM [facility] Comment:Fasting: <100 mg/dL, Non-Fasting: <200 mg/dL (ADA 2005) Blood Urea Nitrogen (BUN) 54(H) 8 - 21 mg/dL 11/17/2024 6:55 AM [facility] Creatinine 1.8(H) 0.5 - 1.3 mg/dL 11/17/2024 6:55 AM [facility] eGFR 42(L) >59 11/17/2024 6:55 AM [facility] Comment:CKD-EPI (2020) in mL /min/1.73 sq meters. Sodium 128(L) 136 - 145 mmol/L 11/17/2024 6:55 AM [facility] Potassium 3.7 3.4 - 5.3 mmol/L 11/17/2024 6:55 AM [facility] Chloride 87(L) 98 - 107 mmol/L 11/17/2024 6:55 AM [facility] CO2 30 22 - 33 mmol/L 11/17/2024 6:55 AM [facility] Calcium 9.4 8.7 - 10.5 mg/dL 11/17/2024 6:55 AM [facility] Alkaline Phosphatase 117 45 - 128 U/L 11/17/2024 6:55 AM [facility] Aspartate Aminotrans (AST) 24 10 - 55 U/L 11/17/2024 6:55 AM [facility] Alanine Aminotrans (ALT) 19 10 - 55 U/L 11/17/2024 6:55 AM [facility] Bilirubin, Total 0.2 0.2 - 1.0 mg/dL 11/17/2024 6:55 AM [facility] Protein, Total 6.6 6.3 - 8.3 g/dL 11/17/2024 6:55 AM [facility] Albumin 2.9(L) 3.4 - 4.8 g/dL 11/17/2024 6:55 AM [facility] BUN/Creatinine Ratio 30(H) 10.0 - 25.0 Ratio 11/17/2024 6:55 AM [facility] Globulin 3.7 1.5 - 3.9 g/dL 11/17/2024 6:55 AM [facility] Albumin/Globulin Ratio 0.8(L) 1.0 - 3.0 Ratio 11/17/2024 6:55 AM [facility] Anion Gap 11 7 - 17 11/17/2024 6:55 AM [facility] Blood (Plasma/Serum) 11/17/2024 5:00 AM EST 11/17/2024 5:09 AM EST Adithya Sheriff PA-C LAB BLOOD ORDERAB LES [address] [address], [address] [address] * (ABNORMAL) POCT Glucose, Fingerstick (11/16/2024 8:09 PM EST) POC Glucose 296(H) 65 - 99 mg/dL 11/16/2024 8:12 PM EST Blood specimen / Unknown 11/16/2024 8:09 PM EST 11/16/2024 8:11 PM EST Dallas Camejo MD POINT OF CARE TEST [place] Performing Organization Address [facility] LAB See Below * (ABNORMAL) POCT Glucose, Fingerstick (11/16/2024 4:19 PM EST) POC Glucose 236(H) 65 - 99 mg/dL 11/16/2024 4:24 PM EST Blood specimen / Unknown 11/16/2024 4:19 PM EST 11/16/2024 4:24 PM EST Dallas Camejo MD POINT OF CARE TEST [place] Performing Organization Address [facility] LAB See Below * (ABNORMAL) POCT Glucose, Fingerstick (11/16/2024 12:04 PM EST) POC Glucose 246(H) 65 - 99 mg/dL 11/16/2024 12:16 PM EST Blood specimen / Unknown 11/16/2024 12:04 PM EST 11/16/2024 12:16 PM EST Dallas Camejo MD POINT OF CARE TEST [place] Performing Organization Address [facility] LAB See Below * (ABNORMAL) POCT Glucose, Fingerstick (11/16/2024 7:37 AM EST) POC Glucose 211(H) 65 - 99 mg/dL 11/16/2024 7:52 AM EST Blood specimen / Unknown 11/16/2024 7:37 AM EST 11/16/2024 7:52 AM EST Dallas Camejo MD POINT OF CARE TEST [place] Performing Organization Address [facility] LAB See Below * Phosphorus (AM) (11/16/2024 7:23 AM EST) Phosphorus 3.8 2.7 - 4.5 mg/dL 11/16/2024 8:34 AM [facility] Blood (Plasma/Serum) 11/16/2024 7:23 AM EST 11/16/2024 7:51 AM EST Maddison Villalpando MD LAB BLOOD ORDERABLES Performing Organization Address [facility] [place] [address], [place] [address] * Magnesium (AM) (11/16/2024 7:23 AM EST) Magnesium 2.1 1.6 - 2.7 mg/dL 11/16/2024 8:34 AM [facility] Blood (Plasma/Serum) 11/16/2024 7:23 AM EST 11/16/2024 7:51 AM EST Maddison Villalpando MD LAB BLOOD ORDERABLES Performing Organization Address [facility] [place] [address], [address] [address] * (ABNORMAL) Basic Metabolic Panel (AM) (11/16/2024 7:23 AM EST) Glucose 190(H) 65 - 99 mg/dL 11/16/2024 8:34 AM [facility] Comment:Fasting: <100 mg/dL, Non-Fasting: <200 mg/dL (ADA 2005) Blood Urea Nitrogen (BUN) 55(H) 8 - 21 mg/dL 11/16/2024 8:34 AM [facility] Creatinine 1.9(H) 0.5 - 1.3 mg/dL 11/16/2024 8:34 AM [facility] eGFR 39(L) >59 11/16/2024 8:34 AM [facility] Comment:CKD-EPI (2020) in mL /min/1.73 sq meters. Sodium 130(L) 136 - 145 mmol/L 11/16/2024 8:34 AM [facility] Potassium 3.6 3.4 - 5.3 mmol/L 11/16/2024 8:34 AM [facility] Chloride 87(L) 98 - 107 mmol/L 11/16/2024 8:34 AM [facility] CO2 32 22 - 33 mmol/L 11/16/2024 8:34 AM [facility] Anion Gap 11 7 - 17 11/16/2024 8:34 AM [facility] [facility] Calcium 9.1 8.7 - 10.5 mg/dL 11/16/2024 8:34 AM [facility] BUN/Creatinine Ratio 29(H) 10.0 - 25.0 Ratio 11/16/2024 8:34 AM [facility] Blood (Plasma/Serum) 11/16/2024 7:23 AM EST 11/16/2024 7:51 AM EST Maddison Villalpando MD LAB BLOOD ORDERABLES Performing Organization Address City/State/[facility] Co de Phone Number [address] [address], [address] [address] * (ABNORMAL) Complete Blood Count WITHOUT Differential - in AM (11/16/2024 7:23 AM EST) White Blood Cell Count 10.7 4.0 - 11.0 Thou/uL 11/16/2024 8:10 AM [facility] Platelet Count 408 150 - 450 Thou/uL 11/16/2024 8:10 AM [facility] Hemoglobin 8.1(L) 13.0 - 17.7 g/dL 11/16/2024 8:10 AM [facility] Hematocrit 25.6(L) 39.0 - 54.0 % 11/16/2024 8:10 AM [facility] Red Blood Cell Count 2.97(L) 4.50 - 6.20 Mil/uL 11/16/2024 8:10 AM [facility] MCV 86 80 - 100 fL 11/16/2024 8:10 AM [facility] MCH 27.3 27.0 - 31.0 pg 11/16/2024 8:10 AM [facility] MCHC 31.6 30.0 - 36.0 g/dL 11/16/2024 8:10 AM [facility] RDW 16.8(H) 11.5 - 14.5 % 11/16/2024 8:10 AM [facility] MPV 10.4 7.5 - 12.5 fL 11/16/2024 8:10 AM [facility] Blood Blood specimen / Unknown 11/16/2024 7:23 AM EST 11/16/2024 7:51 AM EST Maddison Villalpando MD LAB BLOOD ORDERABLES [address] [address], [address] [address] * Type and Screen (11/16/2024 7:23 AM EST) ABO/Rh A POSITIVE 11/16/2024 8:39 AM [facility] Antibody Screen NEGATIVE 11/16/2024 8:53 AM [facility] Specimen Expiration 11/19/2024 11/16/2024 8:39 AM [facility] Unit Number [id number] 11/16/2024 9:12 AM [facility] Blood Component Type LEUKOREDUCED RED CELLS 11/16/2024 9:12 AM [facility] Unit Division 00 11/16/2024 9:12 AM [facility] Unit Status REL FROM ALLOC 2:05 AM [facility] Transfusion Status OK TO TRANSFUSE 11/16/2024 9:12 AM [facility] Crossmatch Result Electronically Compatible 11/16/2024 9:12 AM [facility] Unit Number [id number] 11/16/2024 9:12 AM [facility] Blood Component Type LEUKOREDUCED RED CELLS 11/16/2024 9:12 AM [facility] Unit Division 00 11/16/2024 9:12 AM [facility] Unit Status REL FROM ALLOC 2:05 AM [facility] Transfusion Status OK TO TRANSFUSE 11/16/2024 9:12 AM [facility] Crossmatch Result Electronically Compatible 11/16/2024 9:12 AM [facility] Unit Number [id number] 11/16/2024 9:12 AM [facility] Blood Component Type LEUKOREDUCED RED CELLS 11/16/2024 9:12 AM [facility] Unit Division 00 11/16/2024 9:12 AM [facility] Unit Status REL FROM ALLOC 2:05 AM [facility] Transfusion Status OK TO TRANSFUSE 11/16/2024 9:12 AM [facility] Crossmatch Result Electronically Compatible 11/16/2024 9:12 AM [facility] Unit Number [id number] 11/16/2024 9:12 AM [facility] Blood Component Type LEUKOREDUCED RED CELLS 11/16/2024 9:12 AM [facility] Unit Division 00 11/16/2024 9:12 AM [facility] Unit Status REL FROM ALLOC 2:05 AM [facility] Transfusion Status OK TO TRANSFUSE 11/16/2024 9:12 AM [facility] Crossmatch Result Electronically Compatible 11/16/2024 9:12 AM [facility] Blood Blood specimen / Unknown 11/16/2024 7:23 AM EST 11/16/2024 7:57 AM EST Comment:Blood Cristina Rodriguez APRN BLOOD BANK TEST OR DERABLES HOSPITAL LAB See Below [address] [address] * (ABNORMAL) POCT Glucose, Fingerstick (11/15/2024 8:14 PM EST) [facility] POC Glucose 330(H) 65 - 99 mg/dL [...] CARE TEST O RDERABLES Performing Organization Address [facility] Phone Number [facility] See Below * (ABNORMAL) POCT Glucose, Fingerstick (11/15/2024 11:09 AM EST) POC Glucose 305(H) 65 - 99 mg/dL 11/15/2024 11:24 AM EST Blood specimen / Unknown 11/15/2024 11:09 AM EST 11/15/2024 11:24 AM EST Dallas Camejo MD POINT OF CARE TEST O RDERALUCILLE Performing Organization Address [facility] Phone Number [facility] See Below * Prepare RBC's:Prepare in: Units; Number of Units: 4; Transfusion Indications: Hemoglobin less than 7 gm/dl or HCT less than 21% (11/15/2024 10:54 AM EST) Units Ordered 4 11/15/2024 11:04 AM EST Serum specimen / Unknown 11/15/2024 10:54 AM EST 11/16/2024 9:11 AM EST Cristina Rodriguez APRN BLOOD BANK PRODUCT ORDERABLES Performing Organization Address City/[facility] Co de Phone Number [facility] See Below * Phosphorus (AM) (11/15/2024 8:08 AM EST) Phosphorus 4.3 2.7 - 4.5 mg/dL 11/15/2024 9:21 AM EST [facility] Blood (Plasma/Serum) 11/15/2024 8:08 AM EST 11/15/2024 8:57 AM EST Maddison Villalpando MD [place] [address], [place] [address] * Magnesium (AM) (11/15/2024 8:08 AM EST) Magnesium 2.1 1.6 - 2.7 mg/dL 11/15/2024 9:21 AM [facility] Blood (Plasma/Serum) 11/15/2024 8:08 AM EST 11/15/2024 8:57 AM EST Maddison Villalpando MD LAB BLOOD ORDERABLES Performing Organization Address [facility] [place] [address], [place] [address] * (ABNORMAL) Basic Metabolic Panel (AM) (11/15/2024 8:08 AM EST) Glucose 218(H) 65 - 99 mg/dL 11/15/2024 9:21 AM [facility] Comment:Fasting: <100 mg/dL, Non-Fasting: <200 mg/dL (ADA 2004) Blood Urea Nitrogen (BUN) 59(H) 8 - 21 mg/dL 11/15/2024 9:21 AM [facility] Creatinine 1.8(H) 0.5 - 1.3 mg/dL 11/15/2024 9:21 AM [facility] eGFR 42(L) >59 11/15/2024 9:21 AM [facility] Comment:CKD-EPI (2020) in mL /min/1.73 sq meters. Sodium 131(L) 136 - 145 mmol/L 11/15/2024 9:21 AM [facility] Potassium 3.9 3.4 - 5.3 mmol/L 11/15/2024 9:21 AM [facility] Chloride 85(L) 98 - 107 mmol/L 11/15/2024 9:21 AM [facility] CO2 34(H) 22 - 33 mmol/L 11/15/2024 9:21 AM [facility] Anion Gap 12 7 - 17 11/15/2024 9:21 AM [facility] Calcium 9.4 8.7 - 10.5 mg/dL 11/15/2024 9:21 AM [facility] BUN/Creatinine Ratio 33(H) 10.0 - 25.0 Ratio 11/15/2024 9:21 AM [facility] Blood (Plasma/Serum) 11/15/2024 8:08 AM EST 11/15/2024 8:57 AM EST Maddison Villalpando MD LAB BLOOD ORDERABLES [address] [address], [address] [address] * (ABNORMAL) Complete Blood Count WITHOUT Differential - in AM (11/15/2024 8:08 AM EST) White Blood Cell Count 11.8(H) 4.0 - 11.0 Thou/uL 11/15/2024 9:06 AM [facility] Platelet Count 485(H) 150 - 450 Thou/uL 11/15/2024 9:06 AM [facility] Hemoglobin 8.9(L) 13.0 - 17.7 g/dL 11/15/2024 9:06 AM [facility] Hematocrit 28.9(L) 39.0 - 54.0 % 11/15/2024 9:06 AM [facility] Red Blood Cell Count 3.27(L) 4.50 - 6.20 Mil/uL 11/15/2024 9:06 AM [facility] MCV 88 80 - 100 fL 11/15/2024 9:06 AM [facility] MCH 27.2 27.0 - 31.0 pg 11/15/2024 9:06 AM [facility] MCHC 30.8 30.0 - 36.0 g/dL 11/15/2024 9:06 AM [facility] RDW 16.8(H) 11.5 - 14.5 % 11/15/2024 9:06 AM [facility] MPV 10.4 7.5 - 12.5 fL 11/15/2024 9:06 AM [facility] Blood Blood specimen / Unknown 11/15/2024 8:08 AM EST 11/15/2024 8:57 AM EST Maddison Villalpando MD LAB BLOOD ORDERABLES Performing Organization Address [facility] [place] [address], [place] [address] * (ABNORMAL) proBNP, N-terminal (11/15/2024 8:08 AM EST) proBNP, N-terminal 429(H) <125 pg/mL 11/15/2024 9:21 AM EST [facility] Blood Plasma specimen / Unknown 11/15/2024 8:08 AM EST 11/15/2024 8:57 AM EST Valencia Lau APRN LAB BLOOD ORDERAB LES Performing Organization Address [facility] [place] [address], [place] [address] * (ABNORMAL) POCT Glucose, Fingerstick (11/15/2024 7:36 AM EST) Pathologist [facility] POC Glucose 230(H) [...] CARE TEST O RDERALUCILLE Performing Organization Address [facility] de Phone Number [facility] See Below * (ABNORMAL) POCT Glucose, Fingerstick (11/14/2024 4:10 PM EST) POC Glucose 237(H) 65 - 99 mg/dL 11/14/2024 4:15 PM EST Blood specimen / Unknown 11/14/2024 4:10 PM EST 11/14/2024 4:15 PM EST Dallas Camejo MD POINT OF CARE TEST O RDERALUCILLE Performing Organization Address [facility] de Phone Number [facility] See Below * (ABNORMAL) POCT Glucose, Fingerstick (11/14/2024 11:33 AM EST) POC Glucose 274(H) 65 - 99 mg/dL 11/14/2024 11:49 AM EST Blood specimen / Unknown 11/14/2024 11:33 AM EST 11/14/2024 11:49 AM EST Dallas Camejo MD POINT OF CARE TEST O RDERALUCILLE Performing Organization Address [facility] Phone Number [facility] See Below * (ABNORMAL) Complete Blood Count WITHOUT Differential - STAT (11/14/2024 10:31 AM EST) Pathologist [facility] White Blood Cell Count 10.6 4.0 - 11.0 Thou/uL 11/14/2024 11:21 AM [facility] Platelet Count 471(H) 150 - 450 Thou/uL 11/14/2024 11:21 AM [facility] Hemoglobin 8.9(L) 13.0 - 17.7 g/dL 11/14/2024 11:21 AM [facility] Hematocrit 28.9(L) 39.0 - 54.0 % 11/14/2024 11:21 AM [facility] Red Blood Cell Count 3.25(L) 4.50 - 6.20 Mil/uL 11/14/2024 11:21 AM [facility] MCV 89 80 - 100 fL 11/14/2024 11:21 AM [facility] MCH 27.4 27.0 - 31.0 pg 11/14/2024 11:21 AM [facility] MCHC 30.8 30.0 - 36.0 g/dL 11/14/2024 11:21 AM [facility] RDW 17.1(H) 11.5 - 14.5 % 11/14/2024 11:21 AM [facility] MPV 10.3 7.5 - 12.5 fL 11/14/2024 11:21 AM [facility] Blood Blood specimen / Unknown 11/14/2024 10:31 AM EST 11/14/2024 11:15 AM EST Maddison Villalpando MD LAB BLOOD ORDERABLES Performing Organization Address City/[facility]/[place] [address], [place] [address] * (ABNORMAL) Phosphorus (Routine) (11/14/2024 10:31 AM EST) Phosphorus 6.1(H) 2.7 - 4.5 mg/dL 11/14/2024 11:39 AM [facility] Blood (Plasma/Serum) 11/14/2024 10:31 AM EST 11/14/2024 11:15 AM EST Maddison Villalpando MD [place] [address], [place] [address] * Magnesium (Routine) (11/14/2024 10:31 AM EST) Magnesium 2.1 1.6 - 2.7 mg/dL 11/14/2024 11:39 AM [facility] Blood (Plasma/Serum) 11/14/2024 10:31 AM EST 11/14/2024 11:15 AM EST Maddison Villalpando MD LAB BLOOD ORDERABLES [address] [address], [address] [address] * (ABNORMAL) Basic Metabolic Panel (STAT) (11/14/2024 10:31 AM EST) Glucose 319(H) 65 - 99 mg/dL 11/14/2024 11:39 AM [facility] Comment:Fasting: <100 mg/dL, Non-Fasting: <200 mg/dL (ADA 2004) Blood Urea Nitrogen (BUN) 65(H) 8 - 21 mg/dL 11/14/2024 11:39 AM [facility] Creatinine 2.1(H) 0.5 - 1.3 mg/dL 11/14/2024 11:39 AM [facility] eGFR 35(L) >59 11/14/2024 11:39 AM [facility] Comment:CKD-EPI (2020) in mL /min/1.73 sq meters. Sodium 132(L) 136 - 145 mmol/L 11/14/2024 11:39 AM [facility] Potassium 4.0 3.4 - 5.3 mmol/L 11/14/2024 11:39 AM [facility] Chloride 85(L) 98 - 107 mmol/L 11/14/2024 11:39 AM [facility] CO2 34(H) 22 - 33 mmol/L 11/14/2024 11:39 AM [facility] Anion Gap 13 7 - 17 11/14/2024 11:39 AM [facility] Calcium 9.4 8.7 - 10.5 mg/dL 11/14/2024 11:39 AM [facility] BUN/Creatinine Ratio 31(H) 10.0 - 25.0 Ratio 11/14/2024 11:39 AM [facility] Blood (Plasma/Serum) 11/14/2024 10:31 AM EST 11/14/2024 11:15 AM EST Maddison Villalpando MD LAB BLOOD ORDERABLES [address] [place] [address], [address] [address] * (ABNORMAL) POCT Glucose, Fingerstick (11/14/2024 7:45 AM EST) POC Glucose 224(H) 65 - 99 mg/dL 11/14/2024 7:46 AM EST Blood specimen / Unknown 11/14/2024 7:45 AM EST 11/14/2024 7:46 AM EST Dallas Camejo MD POINT OF CARE TEST O RDERALUCILLE Performing Organization Address [facility] Number [facility] See Below * (ABNORMAL) POCT Glucose, Fingerstick (11/13/2024 11:30 PM EST) POC Glucose 268(H) 65 - 99 mg/dL 11/13/2024 11:30 PM EST Blood specimen / Unknown 11/13/2024 11:30 PM EST 11/13/2024 11:31 PM EST Dallas Camejo MD POINT OF CARE TEST O RDERALUCILLE Performing Organization Address [facility] LAB See Below * (ABNORMAL) POCT Glucose, Fingerstick (11/13/2024 9:19 PM EST) POC Glucose 366(H) 65 - 99 mg/dL 11/13/2024 9:20 PM EST Blood specimen / Unknown 11/13/2024 9:19 PM EST 11/13/2024 9:20 PM EST Dallas Camejo MD POINT OF CARE TEST O RDERALUCILLE Performing Organization Address [facility] Number [facility] See Below * (ABNORMAL) POCT Glucose, Fingerstick (11/13/2024 4:45 PM EST) POC Glucose 196(H) 65 - 99 mg/dL 11/13/2024 4:50 PM EST Blood specimen / Unknown 11/13/2024 4:45 PM EST 11/13/2024 4:50 PM EST Dallas Camejo MD POINT OF CARE TEST O RDERABLES Performing Organization Address [facility] Phone Number [facility] See Below * (ABNORMAL) POCT Glucose, Fingerstick (11/13/2024 11:54 AM EST) POC Glucose 232(H) 65 - 99 mg/dL 11/13/2024 11:55 AM EST Blood specimen / Unknown 11/13/2024 11:54 AM EST 11/13/2024 11:55 AM EST Dallas Camejo MD POINT OF CARE TEST O RDERABLES Performing Organization Address [facility] Phone Number [facility] See Below * (ABNORMAL) POCT Glucose, Fingerstick (11/13/2024 8:12 AM EST) POC Glucose 159(H) 65 - 99 mg/dL 11/13/2024 8:15 AM EST Blood specimen / Unknown 11/13/2024 8:12 AM EST 11/13/2024 8:15 AM EST Dallas Camejo MD POINT OF CARE TEST O RDERABLES Performing Organization Address [facility] Phone Number [facility] See Below * (ABNORMAL) proBNP, N-terminal (11/13/2024 7:30 AM EST) proBNP, N-terminal 994(H) <125 pg/mL 11/13/2024 11:05 AM EST [facility] Plasma specimen / Unknown 11/13/2024 7:30 AM EST 11/13/2024 8:09 AM EST Maddison Villalpando MD LAB BLOOD ORDERABLES Performing Organization Address [facility] Co de Phone Number [address] [address], [address] [address] * (ABNORMAL) Phosphorus (AM) (11/13/2024 7:30 AM EST) Pathologist [facility] Phosphorus 4.9(H) 2.7 - 4.5 mg/dL 11/13/2024 8:45 AM [facility] Blood (Plasma/Serum) 11/13/2024 7:30 AM EST 11/13/2024 8:09 AM EST Maddison Villalpando MD [place] [address], [place] [address] * Magnesium (AM) (11/13/2024 7:30 AM EST) Pathologist [facility] Magnesium 1.7 1.6 - 2.7 mg/dL 11/13/2024 8:45 AM [facility] Blood (Plasma/Serum) 11/13/2024 7:30 AM EST 11/13/2024 8:09 AM EST Maddison Villalpando MD LAB BLOOD ORDERABLES Performing Organization Address City/[facility] [place] [address], [address] [address] * (ABNORMAL) Complete Blood Count WITHOUT Differential - in AM (11/13/2024 7:30 AM EST) [facility] White Blood Cell Count 11.8(H) 4.0 - 11.0 Thou/uL 11/13/2024 8:28 AM [facility] Platelet Count 486(H) 150 - 450 Thou/uL 11/13/2024 8:28 AM [facility] Hemoglobin 9.2(L) 13.0 - 17.7 g/dL 11/13/2024 8:28 AM [facility] Hematocrit 29.8(L) 39.0 - 54.0 % 11/13/2024 8:28 AM [facility] Red Blood Cell Count 3.34(L) 4.50 - 6.20 Mil/uL 11/13/2024 8:28 AM [facility] MCV 89 80 - 100 fL 11/13/2024 8:28 AM [facility] MCH 27.5 27.0 - 31.0 pg 11/13/2024 8:28 AM [facility] MCHC 30.9 30.0 - 36.0 g/dL 11/13/2024 8:28 AM [facility] RDW 16.9(H) 11.5 - 14.5 % 11/13/2024 8:28 AM [facility] MPV 9.8 7.5 - 12.5 fL 11/13/2024 8:28 AM [facility] Blood Blood specimen / Unknown 11/13/2024 7:30 AM EST 11/13/2024 8:09 AM EST Maddison Villalpando MD LAB BLOOD ORDERABLES Performing Organization Address City/State/[facility] [place] [address], [place] [address] * (ABNORMAL) Basic Metabolic Panel (AM) (11/13/2024 7:30 AM EST) Glucose 154(H) 65 - 99 mg/dL 11/13/2024 8:45 AM [facility] Comment:Fasting: <100 mg/dL, Non-Fasting: <200 mg/dL (ADA 2004) Blood Urea Nitrogen (BUN) 44(H) 8 - 21 mg/dL 11/13/2024 8:45 AM [facility] Creatinine 1.7(H) 0.5 - 1.3 mg/dL 11/13/2024 8:45 AM [facility] eGFR 45(L) >59 11/13/2024 8:45 AM [facility] Comment:CKD-EPI (2020) in mL /min/1.73 sq meters. Sodium 140 136 - 145 mmol/L 11/13/2024 8:45 AM [facility] Potassium 3.6 3.4 - 5.3 mmol/L 11/13/2024 8:45 AM [facility] Chloride 91(L) 98 - 107 mmol/L 11/13/2024 8:45 AM EST [facility] CO2 35(H) 22 - 33 mmol/L 11/13/2024 8:45 AM EST [facility] Anion Gap 14 7 - 17 11/13/2024 8:45 AM EST [facility] Calcium 9.7 8.7 - 10.5 mg/dL 11/13/2024 8:45 AM [facility] BUN/Creatinine Ratio 26(H) 10.0 - 25.0 Ratio 11/13/2024 8:45 AM EST [facility] Blood (Plasma/Serum) 11/13/2024 7:30 AM EST 11/13/2024 8:09 AM EST Maddison Villalpando MD [place] [address], [place] [address] * (ABNORMAL) POCT Glucose, Fingerstick (11/13/2024 3:59 [...] CARE TEST O RDGHANSHYAM Performing Organization Address [facility] Number [facility] See Below * (ABNORMAL) POCT Glucose, Fingerstick (11/12/2024 4:41 PM EST) POC Glucose 200(H) 65 - 99 mg/dL 11/12/2024 5:01 PM EST Blood specimen / Unknown 11/12/2024 4:41 PM EST 11/12/2024 5:01 PM EST Dallas Camejo MD POINT OF CARE TEST O JOSEPH Performing Organization Address [facility] LAB See Below * MRI Brain [...] * PM DUAL LEAD EVAL WITH PROGRAMMING, [id number] (11/12/2024 1:15 PM EST) Date Time Interrogation Session [id number] [phone] PACEART Implantable Pulse Generator Laborer Wood Preserving Plant [employer] PACEART Implantable Pulse Generator Model [id number] ESCOBAR PACEART Implantable Pulse Generator Serial Number [id number] PACEART Implantable Pulse Generator Type Pacemaker PACEART [...] reset 99.97 % PACEART Otf Statistic AP CARDIOGRAPH OPERATOR Percent 76.74 % PACEART Otf Statistic CARDIOGRAPH OPERATOR Percent 23.23 % PACEART Otf Statistic AP VS Percent 0.01 % PACEART Otf Statistic VS Percent 0.01 % PACEART AT/AF [place] Percent 0 % PACEART Episode Statistic Recent [...] TEST O RDERABLES Performing Organization Address City/[facility] Co de Phone Number [facility] See Below * (ABNORMAL) POCT Glucose, Fingerstick (11/12/2024 8:01 AM EST) POC Glucose 140(H) 65 - 99 mg/dL 11/12/2024 8:18 AM EST Blood specimen / Unknown 11/12/2024 8:01 AM EST 11/12/2024 8:18 AM EST Dallas Camejo MD POINT OF CARE TEST O RDERABLES Performing Organization Address [facility] Phone Number [facility] See Below * Phosphorus (11/12/2024 5:00 AM EST) Phosphorus 4.5 2.7 - 4.5 mg/dL 11/12/2024 6:01 AM EST [facility] Blood (Plasma/Serum) 11/12/2024 5:00 AM EST 11/12/2024 5:22 AM EST Luis Degroot MD LAB BLOOD ORDERABLES Performing Organization Address [facility] [place] [address], [place] [address] * Magnesium (11/12/2024 5:00 AM EST) Magnesium 1.8 1.6 - 2.7 mg/dL 11/12/2024 6:01 AM EST [facility] Blood (Plasma/Serum) 11/12/2024 5:00 AM EST 11/12/2024 5:22 AM EST Luis Degroot MD LAB BLOOD ORDERABLES [address] [address], [place] [address] * (ABNORMAL) Complete Blood Count, WITHOUT Differential (routine) (11/12/2024 5:00 AM EST) [facility] White Blood Cell Count 11.1(H) 4.0 - 11.0 Thou/uL 11/12/2024 5:47 AM [facility] Platelet Count 456(H) 150 - 450 Thou/uL 11/12/2024 5:47 AM [facility] Hemoglobin 8.1(L) 13.0 - 17.7 g/dL 11/12/2024 5:47 AM [facility] Hematocrit 26.3(L) 39.0 - 54.0 % 11/12/2024 5:47 AM [facility] Red Blood Cell Count 2.94(L) 4.50 - 6.20 Mil/uL 11/12/2024 5:47 AM [facility] MCV 90 80 - 100 fL 11/12/2024 5:47 AM [facility] MCH 27.6 27.0 - 31.0 pg 11/12/2024 5:47 AM [facility] MCHC 30.8 30.0 - 36.0 g/dL 11/12/2024 5:47 AM [facility] RDW 16.9(H) 11.5 - 14.5 % 11/12/2024 5:47 AM [facility] MPV 9.8 7.5 - 12.5 fL 11/12/2024 5:47 AM [facility] Blood Blood specimen / Unknown 11/12/2024 5:00 AM EST 11/12/2024 5:22 AM EST Luis Degroot MD LAB BLOOD ORDERABLES [address] [address], [place] [address] * (ABNORMAL) Basic Metabolic Panel (11/12/2024 5:00 AM EST) Glucose 126(H) 65 - 99 mg/dL 11/12/2024 6:01 AM [facility] Comment:Fasting: <100 mg/dL, Non-Fasting: <200 mg/dL (ADA 2004) Blood Urea Nitrogen (BUN) 44(H) 8 - 21 mg/dL 11/12/2024 6:01 AM [facility] Creatinine 1.6(H) 0.5 - 1.3 mg/dL 11/12/2024 6:01 AM [facility] eGFR 48(L) >59 11/12/2024 6:01 AM [facility] Comment:CKD-EPI (2020) in mL /min/1.73 sq meters. Sodium 138 136 - 145 mmol/L 11/12/2024 6:01 AM [facility] Potassium 3.7 3.4 - 5.3 mmol/L 11/12/2024 6:01 AM [facility] Chloride 96(L) 98 - 107 mmol/L 11/12/2024 6:01 AM [facility] CO2 30 22 - 33 mmol/L 11/12/2024 6:01 AM [facility] Anion Gap 12 7 - 17 11/12/2024 6:01 AM [facility] Calcium 9.1 8.7 - 10.5 mg/dL 11/12/2024 6:01 AM [facility] BUN/Creatinine Ratio 28(H) 10.0 - 25.0 Ratio 11/12/2024 6:01 AM [facility] Blood (Plasma/Serum) 11/12/2024 5:00 AM EST 11/12/2024 5:22 AM EST Luis Degroot MD LAB BLOOD ORDERABLES [address] [address], [address] [address] * (ABNORMAL) POCT Glucose, Fingerstick (11/12/2024 4:51 AM EST) POC Glucose 140(H) 65 - 99 mg/dL 11/12/2024 4:53 AM EST Blood specimen / Unknown 11/12/2024 4:51 AM EST 11/12/2024 4:53 AM EST Dallas Camejo MD POINT OF CARE TEST O RDERALUCILLE Performing Organization Address [facility] Number [facility] LAB See Below * (ABNORMAL) POCT Glucose, Fingerstick (11/12/2024 12:42 AM EST) POC Glucose 147(H) 65 - 99 mg/dL 11/12/2024 12:43 AM EST Blood specimen / Unknown 11/12/2024 12:42 AM EST 11/12/2024 12:43 AM EST Dallas Camejo MD POINT OF CARE TEST O [place]UC[place] Performing Organization Address [facility] LAB See Below * (ABNORMAL) POCT Glucose, Fingerstick (11/12/2024 12:21 AM EST) POC Glucose 130(H) 65 - 99 mg/dL 11/12/2024 12:22 AM EST Blood specimen / Unknown 11/12/2024 12:21 AM EST 11/12/2024 12:22 AM EST Dallas Camejo MD POINT OF CARE TEST O R[place]UC[place] Performing Organization Address [facility] Number [facility] LAB See Below * (ABNORMAL) POCT Glucose, Fingerstick (11/11/2024 9:17 PM EST) POC Glucose 224(H) 65 - 99 mg/dL 11/11/2024 9:21 PM EST Blood specimen / Unknown 11/11/2024 9:17 PM EST 11/11/2024 9:21 PM EST Dallas Camejo MD POINT OF CARE TEST [place] Performing Organization Address [facility] Phone Number [facility] LAB See Below * (ABNORMAL) POCT Glucose, Fingerstick (11/11/2024 5:06 PM EST) POC Glucose 149(H) 65 - 99 mg/dL 11/11/2024 5:37 PM EST Blood specimen / Unknown 11/11/2024 5:06 PM EST 11/11/2024 5:37 PM EST Dallas Camejo MD POINT OF CARE TEST O R[facility] HOSPITAL LAB See Below * PM DUAL LEAD EVAL WITH PROGRAMMING, [id number] (11/11/2024 4:33 PM EST) Date Time Interrogation Session [id number] 1,358 PACEART Implantable Pulse Generator Laborer Wood Preserving Plant [employer] PACEART Implantable Pulse Generator Model [id number] Jaime ESCOBAR PACEART Implantable Pulse Generator Serial Number [id number] PACEART Implantable Pulse Generator Type Pacemaker PACEART [...] reset 89.06 % PACEART Otf Statistic AP CARDIOGRAPH OPERATOR Percent 62.37 % PACEART Otf Statistic CARDIOGRAPH OPERATOR Percent 26.83 % PACEART Otf Statistic AP VS Percent 8.97 % PACEART Otf Statistic VS Percent 1.83 % PACEART AT/AF [place] Percent 0 % PACEART Episode Statistic Recent [...] ordered for function. Presenting rhythm: AP / CARDIOGRAPH OPERATOR @ 60 bpm. Underlying rhythm: SB [...] inserted atraumatically into the esophagus by the disaster recovery consultant. With the patient in a supine position [...] ORDERABLES * Phosphorus (11/11/2024 2:00 PM EST) [facility] Phosphorus 4.5 2.7 - 4.5 mg/dL 11/11/2024 3:00 PM EST [facility] Blood (Plasma/Serum) 11/11/2024 2:00 PM EST 11/11/2024 2:19 PM EST Nani Hollis PA-C LAB BLOOD ORDERABLES Performing Organization Address [facility] [place] [address], [place] [address] * Magnesium (11/11/2024 2:00 PM EST) [facility] Magnesium 1.8 1.6 - 2.7 mg/dL 11/11/2024 3:00 PM EST [facility] Blood (Plasma/Serum) 11/11/2024 2:00 PM EST 11/11/2024 2:19 PM EST Nani Hollis PA-C LAB BLOOD ORDERABLES Performing Organization Address [facility] [place] [address], [place] [address] * (ABNORMAL) Basic Metabolic Panel (11/11/2024 2:00 PM EST) Pathologist [facility] Glucose 124(H) 65 - 99 mg/dL 11/11/2024 3:00 PM [facility] Comment:Fasting: <100 mg/dL, Non-Fasting: <200 mg/dL (ADA 2004) Blood Urea Nitrogen (BUN) 49(H) 8 - 21 mg/dL 11/11/2024 3:00 PM [facility] Creatinine 1.7(H) 0.5 - 1.3 mg/dL 11/11/2024 3:00 PM [facility] eGFR 45(L) >59 11/11/2024 3:00 PM [facility] Comment:CKD-EPI (2020) in mL /min/1.73 sq meters. Sodium 139 136 - 145 mmol/L 11/11/2024 3:00 PM [facility] Potassium 3.4 3.4 - 5.3 mmol/L 11/11/2024 3:00 PM [facility] Chloride 97(L) 98 - 107 mmol/L 11/11/2024 3:00 PM [facility] CO2 30 22 - 33 mmol/L 11/11/2024 3:00 PM [facility] Anion Gap 12 7 - 17 11/11/2024 3:00 PM [facility] Calcium 9.0 8.7 - 10.5 mg/dL 11/11/2024 3:00 PM [facility] BUN/Creatinine Ratio 29(H) 10.0 - 25.0 Ratio 11/11/2024 3:00 PM [facility] Blood (Plasma/Serum) 11/11/2024 2:00 PM EST 11/11/2024 2:19 PM EST Nani Hollis PA-C LAB BLOOD ORDERABLES [address] [address], [address] [address] * (ABNORMAL) POCT Glucose, Fingerstick (11/11/2024 11:53 AM EST) POC Glucose 139(H) 65 - 99 mg/dL 11/11/2024 12:02 PM EST Blood specimen / Unknown 11/11/2024 11:53 AM EST 11/11/2024 12:02 PM EST Dallas Camejo MD POINT OF CARE TEST O RDERALUCILLE Performing Organization Address [facility] Co de Phone Number [facility] LAB See Below * (ABNORMAL) POCT Glucose, Fingerstick (11/11/2024 7:31 AM EST) POC Glucose 202(H) 65 - 99 mg/dL 11/11/2024 7:32 AM EST Blood specimen / Unknown 11/11/2024 7:31 AM EST 11/11/2024 7:32 AM EST Dallas Camejo MD POINT OF CARE TEST O RDERABLES Performing Organization Address [facility] Phone Number [facility] LAB See Below * (ABNORMAL) POCT Glucose, Fingerstick (11/11/2024 2:35 AM EST) POC Glucose 174(H) 65 - 99 mg/dL 11/11/2024 3:47 AM EST Blood specimen / Unknown 11/11/2024 2:35 AM EST 11/11/2024 3:46 AM EST Dallas Camejo MD POINT OF CARE TEST O RDERABLES Performing Organization Address [facility] Co de Phone Number [facility] LAB See Below * (ABNORMAL) proBNP, N-terminal (11/11/2024 2:00 AM EST) proBNP, N-terminal 2,964(H) <125 pg/mL 11/11/2024 3:18 AM EST [facility] Blood Plasma specimen / Unknown 11/11/2024 2:00 AM EST 11/11/2024 2:53 AM EST Nani Hollis PA-C LAB BLOOD ORDERABLES Performing Organization Address [facility] Co de Phone Number [address] [address], [address] [address] * (ABNORMAL) Complete Blood Count, WITHOUT Differential (routine) (11/11/2024 2:00 AM EST) White Blood Cell Count 13.2(H) 4.0 - 11.0 Thou/uL 11/11/2024 2:57 AM [facility] Platelet Count 460(H) 150 - 450 Thou/uL 11/11/2024 2:57 AM [facility] Hemoglobin 8.2(L) 13.0 - 17.7 g/dL 11/11/2024 2:57 AM [facility] Hematocrit 26.1(L) 39.0 - 54.0 % 11/11/2024 2:57 AM [facility] Red Blood Cell Count 2.91(L) 4.50 - 6.20 Mil/uL 11/11/2024 2:57 AM [facility] MCV 90 80 - 100 fL 11/11/2024 2:57 AM [facility] MCH 28.2 27.0 - 31.0 pg 11/11/2024 2:57 AM [facility] MCHC 31.4 30.0 - 36.0 g/dL 11/11/2024 2:57 AM [facility] RDW 17.0(H) 11.5 - 14.5 % 11/11/2024 2:57 AM [facility] MPV 9.8 7.5 - 12.5 fL 11/11/2024 2:57 AM [facility] Blood Blood specimen / Unknown 11/11/2024 2:00 AM EST 11/11/2024 2:53 AM EST Nani Hollis PA-C LAB BLOOD ORDERABLES [address] [address], [address] [address] * (ABNORMAL) Phosphorus (11/11/2024 2:00 AM EST) Pathologist [facility] Phosphorus 4.7(H) 2.7 - 4.5 mg/dL 11/11/2024 3:18 AM [facility] Blood (Plasma/Serum) 11/11/2024 2:00 AM EST 11/11/2024 2:53 AM EST Nani PATTON-Annemarie LAB BLOOD ORDERABLES Performing Organization Address City/[facility]/[place] [address], [place] [address] * Magnesium (11/11/2024 2:00 AM EST) Magnesium 2.0 1.6 - 2.7 mg/dL 11/11/2024 3:18 AM [facility] Blood (Plasma/Serum) 11/11/2024 2:00 AM EST 11/11/2024 2:53 AM EST Nani PATTON-Annemarie LAB BLOOD ORDERABLES Performing Organization Address [facility] [place] [address], [place] [address] * (ABNORMAL) Basic Metabolic Panel (11/11/2024 2:00 AM EST) Glucose 151(H) 65 - 99 mg/dL 11/11/2024 3:18 AM [facility] Comment:Fasting: <100 mg/dL, Non-Fasting: <200 mg/dL (ADA 2004) Blood Urea Nitrogen (BUN) 56(H) 8 - 21 mg/dL 11/11/2024 3:18 AM [facility] Creatinine 2.0(H) 0.5 - 1.3 mg/dL 11/11/2024 3:18 AM [facility] eGFR 37(L) >59 11/11/2024 3:18 AM [facility] Comment:CKD-EPI (2020) in mL /min/1.73 sq meters. Sodium 137 136 - 145 mmol/L 11/11/2024 3:18 AM [facility] Potassium 3.8 3.4 - 5.3 mmol/L 11/11/2024 3:18 AM [facility] Chloride 99 98 - 107 mmol/L 11/11/2024 3:18 AM [facility] CO2 27 22 - 33 mmol/L 11/11/2024 3:18 AM [facility] Anion Gap 11 7 - 17 11/11/2024 3:18 AM [facility] Calcium 8.7 8.7 - 10.5 mg/dL 11/11/2024 3:18 AM [facility] BUN/Creatinine Ratio 28(H) 10.0 - 25.0 Ratio 11/11/2024 3:18 AM [facility] Blood (Plasma/Serum) 11/11/2024 2:00 AM EST 11/11/2024 2:53 AM EST Nani Hollis PA-C [place] [address], [place] [address] * (ABNORMAL) Hepatic Function Panel (Routine) (11/11/2024 2:00 AM EST) Alkaline Phosphatase 207(H) 45 - 128 U/L 11/11/2024 3:18 AM [facility] Aspartate Aminotrans (AST) 24 10 - 55 U/L 11/11/2024 3:18 AM [facility] Alanine Aminotrans (ALT) 14 10 - 55 U/L 11/11/2024 3:18 AM [facility] Bilirubin, Total 0.2 0.2 - 1.0 mg/dL 11/11/2024 3:18 AM [facility] Protein, Total 6.4 6.3 - 8.3 g/dL 11/11/2024 3:18 AM [facility] Albumin 2.6(L) 3.4 - 4.8 g/dL 11/11/2024 3:18 AM [facility] Bilirubin, Direct 0.1 0 - 0.2 mg/dL 11/11/2024 3:18 AM [facility] Globulin 3.8 1.5 - 3.9 g/dL 11/11/2024 3:18 AM [facility] Albumin/Globulin Ratio 0.7(L) 1.0 - 3.0 Ratio 11/11/2024 3:18 AM [facility] Blood (Plasma/Serum) 11/11/2024 2:00 AM EST 11/11/2024 2:53 AM EST Nani Hollis PA-C LAB BLOOD ORDERABLES Performing Organization Address [facility] [place] [address], [place] [address] * Creatine Kinase (CK) (11/11/2024 2:00 AM EST) Creatine Kinase (CK) 37 24 - 204 U/L 11/11/2024 3:18 AM EST [facility] Blood (Plasma/Serum) 11/11/2024 2:00 AM EST 11/11/2024 2:53 AM EST Nani Hollis PA-C LAB BLOOD ORDERABLES Performing Organization Address [facility] [place] [address], [place] [address] * (ABNORMAL) POCT Glucose, Fingerstick (11/10/2024 7:55 PM EST) POC Glucose 229(H) 65 - 99 mg/dL 11/10/2024 7:56 PM EST Blood specimen / Unknown 11/10/2024 7:55 PM EST 11/10/2024 7:56 PM EST Dallas Camejo MD POINT OF CARE TEST O RDERABLES Performing Organization Address City/[facility] Co de Phone Number HOSPITAL LAB [...] - 4.5 mg/dL 11/10/2024 1:06 PM EST [facility] Blood (Plasma/Serum) 11/10/2024 12:03 PM EST 11/10/2024 12:27 PM EST Nani Hollis PA-C LAB BLOOD ORDERABLES [address] [address], [address] [address] * Magnesium (11/10/2024 12:03 PM EST) Pathologist [facility] Magnesium 2.0 1.6 - 2.7 mg/dL 11/10/2024 1:06 PM [facility] Blood (Plasma/Serum) 11/10/2024 12:03 PM EST 11/10/2024 12:27 PM EST Nani Hollis PA-C LAB BLOOD ORDERABLES [address] [address], [address] [address] * (ABNORMAL) Basic Metabolic Panel (11/10/2024 12:03 PM EST) Glucose 135(H) 65 - 99 mg/dL 11/10/2024 1:06 PM [facility] Comment:Fasting: <100 mg/dL, Non-Fasting: <200 mg/dL (ADA 2004) Blood Urea Nitrogen (BUN) 57(H) 8 - 21 mg/dL 11/10/2024 1:06 PM [facility] Creatinine 1.9(H) 0.5 - 1.3 mg/dL 11/10/2024 1:06 PM [facility] eGFR 39(L) >59 11/10/2024 1:06 PM [facility] Comment:CKD-EPI (2020) in mL /min/1.73 sq meters. Sodium 137 136 - 145 mmol/L 11/10/2024 1:06 PM [facility] Potassium 3.8 3.4 - 5.3 mmol/L 11/10/2024 1:06 PM [facility] Chloride 101 98 - 107 mmol/L 11/10/2024 1:06 PM [facility] CO2 25 22 - 33 mmol/L 11/10/2024 1:06 PM [facility] Anion Gap 11 7 - 17 11/10/2024 1:06 PM [facility] Calcium 8.5(L) 8.7 - 10.5 mg/dL 11/10/2024 1:06 PM [facility] BUN/Creatinine Ratio 30(H) 10.0 - 25.0 Ratio 11/10/2024 1:06 PM [facility] Blood (Plasma/Serum) 11/10/2024 12:03 PM EST 11/10/2024 12:27 PM EST Nani Hollis PA-C LAB BLOOD ORDERABLES Performing Organization Address City/[facility] Co de Phone Number [address] [address], [address] [address] * (ABNORMAL) POCT Glucose, Fingerstick (11/10/2024 11:36 AM EST) POC Glucose 143(H) 65 - 99 mg/dL 11/10/2024 11:36 AM EST Blood specimen / Unknown 11/10/2024 11:36 AM EST 11/10/2024 11:37 AM EST Dallas Camejo MD POINT OF CARE TEST O RDERABLES Performing Organization Address [facility] Co de Phone Number [facility] LAB See Below * (ABNORMAL) POCT Glucose, Fingerstick (11/10/2024 7:42 AM EST) POC Glucose 134(H) 65 - 99 mg/dL 11/10/2024 7:43 AM EST Blood specimen / Unknown 11/10/2024 7:42 AM EST 11/10/2024 7:43 AM EST Dallas Camejo MD POINT OF CARE TEST O RDERABLES [facility] LAB See Below * (ABNORMAL) POCT [...] 2.7 - 4.5 mg/dL 11/10/2024 1:09 AM [facility] Blood (Plasma/Serum) 11/10/2024 12:04 AM EST 11/10/2024 12:33 AM EST Claire Garibay PA-C [place] [address], [place] [address] * Magnesium (11/10/2024 12:04 AM EST) Magnesium 2.1 1.6 - 2.7 mg/dL 11/10/2024 1:09 AM [facility] Blood (Plasma/Serum) 11/10/2024 12:04 AM EST 11/10/2024 12:33 AM EST Claire Garibay PA-C LAB BLOOD ORDERABLES Performing Organization Address City/[facility] [place] [address], [place] [address] * (ABNORMAL) Basic Metabolic Panel (11/10/2024 12:04 AM EST) Glucose 122(H) 65 - 99 mg/dL 11/10/2024 1:09 AM [facility] Comment:Fasting: <100 mg/dL, Non-Fasting: <200 mg/dL (ADA 2005) Blood Urea Nitrogen (BUN) 56(H) 8 - 21 mg/dL 11/10/2024 1:09 AM [facility] Creatinine 2.0(H) 0.5 - 1.3 mg/dL 11/10/2024 1:09 AM [facility] eGFR 37(L) >59 11/10/2024 1:09 AM [facility] Comment:CKD-EPI (2020) in mL /min/1.73 sq meters. Sodium 135(L) 136 - 145 mmol/L 11/10/2024 1:09 AM [facility] Potassium 3.8 3.4 - 5.3 mmol/L 11/10/2024 1:09 AM [facility] Chloride 100 98 - 107 mmol/L 11/10/2024 1:09 AM [facility] CO2 24 22 - 33 mmol/L 11/10/2024 1:09 AM [facility] Anion Gap 11 7 - 17 11/10/2024 1:09 AM [facility] Calcium 8.2(L) 8.7 - 10.5 mg/dL 11/10/2024 1:09 AM [facility] BUN/Creatinine Ratio 28(H) 10.0 - 25.0 Ratio 11/10/2024 1:09 AM [facility] Blood (Plasma/Serum) 11/10/2024 12:04 AM EST 11/10/2024 12:33 AM EST Claire Garibay PA-C LAB BLOOD ORDERABLES Performing Organization Address City/State/[facility] [place] [address], [place] [address] * (ABNORMAL) COMPLETE BLOOD COUNT, WITHOUT DIFFERENTIAL (11/10/2024 12:04 AM EST) White Blood Cell Count 13.5(H) 4.0 - 11.0 Thou/uL 11/10/2024 12:47 AM [facility] Platelet Count 445 150 - 450 Thou/uL 11/10/2024 12:47 AM [facility] Hemoglobin 7.6(L) 13.0 - 17.7 g/dL 11/10/2024 12:47 AM [facility] Hematocrit 25.2(L) 39.0 - 54.0 % 11/10/2024 12:47 AM [facility] Red Blood Cell Count 2.75(L) 4.50 - 6.20 Mil/uL 11/10/2024 12:47 AM [facility] MCV 92 80 - 100 fL 11/10/2024 12:47 AM [facility] MCH 27.6 27.0 - 31.0 pg 11/10/2024 12:47 AM [facility] MCHC 30.2 30.0 - 36.0 g/dL 11/10/2024 12:47 AM [facility] RDW 17.2(H) 11.5 - 14.5 % 11/10/2024 12:47 AM [facility] MPV 9.7 7.5 - 12.5 fL 11/10/2024 12:47 AM [facility] Blood Blood specimen / Unknown 11/10/2024 12:04 AM EST 11/10/2024 12:33 AM EST Claire Garibay PA-C [place] [address], [place] [address] * (ABNORMAL) POCT Glucose, Fingerstick (11/09/2024 8:03 [...] (ABNORMAL) proBNP, N-terminal (11/09/2024 10:04 AM EST) [facility] proBNP, N-terminal 4,654(H) <125 pg/mL 11/09/2024 12:58 PM [facility] Plasma specimen / Unknown 11/09/2024 10:04 AM EST 11/09/2024 10:25 AM EST Claire Garibay PA-C LAB BLOOD ORDERABLES Performing Organization Address [facility] [place] [address], [place] [address] * (ABNORMAL) Procalcitonin (11/09/2024 10:04 AM EST) [facility] Procalcitonin 0.40(H) <0.09 ng/mL 11/09/2024 11:01 AM [facility] Comment: (NOTE) ?Procalcitonin (PCT) Guided Antibiotic [...] PA-C LAB BLOOD ORDERABLES Performing Organization Address City/State/[facility] Co de Phone Number [address] [address], [address] [address] * (ABNORMAL) POCT Glucose, Fingerstick (11/09/2024 7:29 AM EST) Pathologist [facility] POC Glucose 153(H) 65 - 99 mg/dL 11/09/2024 7:33 AM EST Blood specimen / Unknown 11/09/2024 7:29 AM EST 11/09/2024 7:33 AM EST Dallas Camejo MD POINT OF CARE TEST O RDERABLES Performing Organization Address City/[facility]/ZIP Co de Phone Number HOSPITAL LAB See Below * (ABNORMAL) Phosphorus (11/09/2024 1:50 AM EST) Phosphorus 5.2(H) 2.7 - 4.5 mg/dL 11/09/2024 2:56 AM EST [facility] Blood (Plasma/Serum) 11/09/2024 1:50 AM EST 11/09/2024 2:31 AM EST Shay Martin MD LAB BLOOD ORDERAB LES Performing Organization Address [facility] [place] [address], [place] [address] * Magnesium (11/09/2024 1:50 AM EST) Magnesium 2.3 1.6 - 2.7 mg/dL 11/09/2024 2:56 AM EST [facility] Blood (Plasma/Serum) 11/09/2024 1:50 AM EST 11/09/2024 2:31 AM EST Shay Martin MD LAB BLOOD ORDERAB LES Performing Organization Address [facility] [place] [address], [place] [address] * (ABNORMAL) COMPLETE BLOOD COUNT, WITHOUT DIFFERENTIAL (11/09/2024 1:50 AM EST) White Blood Cell Count 11.9(H) 4.0 - 11.0 Thou/uL 11/09/2024 2:36 AM EST [facility] Platelet Count 405 150 - 450 Thou/uL 11/09/2024 2:36 AM [facility] Hemoglobin 7.7(L) 13.0 - 17.7 g/dL 11/09/2024 2:36 AM [facility] Hematocrit 24.9(L) 39.0 - 54.0 % 11/09/2024 2:36 AM [facility] Red Blood Cell Count 2.72(L) 4.50 - 6.20 Mil/uL 11/09/2024 2:36 AM [facility] MCV 92 80 - 100 fL 11/09/2024 2:36 AM [facility] MCH 28.3 27.0 - 31.0 pg 11/09/2024 2:36 AM [facility] MCHC 30.9 30.0 - 36.0 g/dL 11/09/2024 2:36 AM [facility] RDW 17.1(H) 11.5 - 14.5 % 11/09/2024 2:36 AM [facility] MPV 9.6 7.5 - 12.5 fL 11/09/2024 2:36 AM [facility] Blood Blood specimen / Unknown 11/09/2024 1:50 AM EST 11/09/2024 2:31 AM EST Shay Martin MD LAB BLOOD ORDERAB LES Performing Organization Address City/State/[facility] [place] [address], [place] [address] * (ABNORMAL) Basic Metabolic Panel (11/09/2024 1:50 AM EST) Glucose 117(H) 65 - 99 mg/dL 11/09/2024 2:56 AM [facility] Comment:Fasting: <100 mg/dL, Non-Fasting: <200 mg/dL (ADA 2005) Blood Urea Nitrogen (BUN) 46(H) 8 - 21 mg/dL 11/09/2024 2:56 AM [facility] Creatinine 1.8(H) 0.5 - 1.3 mg/dL 11/09/2024 2:56 AM [facility] eGFR 42(L) >59 11/09/2024 2:56 AM [facility] Comment:CKD-EPI (2020) in mL /min/1.73 sq meters. Sodium 139 136 - 145 mmol/L 11/09/2024 2:56 AM [facility] Potassium 3.6 3.4 - 5.3 mmol/L 11/09/2024 2:56 AM [facility] Chloride 101 98 - 107 mmol/L 11/09/2024 2:56 AM [facility] CO2 25 22 - 33 mmol/L 11/09/2024 2:56 AM [facility] Anion Gap 13 7 - 17 11/09/2024 2:56 AM [facility] Calcium 8.2(L) 8.7 - 10.5 mg/dL 11/09/2024 2:56 AM [facility] BUN/Creatinine Ratio 26(H) 10.0 - 25.0 Ratio 11/09/2024 2:56 AM [facility] Blood (Plasma/Serum) 11/09/2024 1:50 AM EST 11/09/2024 2:31 AM EST Shay Martin MD [place] [address], [place] [address] * (ABNORMAL) POCT Glucose, Fingerstick (11/09/2024 1:41 [...] CARE TEST O JOSEPH Performing Organization Address [facility] Phone Number [facility] See Below * (ABNORMAL) POCT Glucose, Fingerstick (11/08/2024 7:58 PM EST) POC Glucose 212(H) 65 - 99 mg/dL 11/08/2024 8:49 PM EST Blood specimen / Unknown 11/08/2024 7:58 PM EST 11/08/2024 8:49 PM EST Dallas Camejo MD POINT OF CARE TEST Kandis RUIZ Performing Organization Address [facility] Number [facility] See Below * INSJ NON-TUNNELED [...] to verify the correct patient, procedure, equipment, student support advisor and site/side marked as required. Indications: vascular [...] 7.35 7.33 - 7.43 11/08/2024 6:00 PM [facility] Venous pCO2 49 35 - 50 mmHG 11/08/2024 6:00 PM [facility] Venous pO2 45 0 - 60 mmHG 11/08/2024 6:00 PM [facility] Venous Total CO2 28 23 - 29 mmol/L 11/08/2024 6:00 PM [facility] Respiratory Info NASAL 6 L/MIN 11/08/2024 5:29 PM EST Base Excess 0.9 mmol/L 11/08/2024 6:00 PM [facility] Comment:Reference Range: Neg ative 2 to Positive 3 Blood Blood specimen / Unknown 11/08/2024 5:46 PM EST 11/08/2024 5:55 PM EST Eunice Garrison APRN [place] [address], [place] [address] * (ABNORMAL) Phosphorus (Routine) (11/08/2024 5:46 PM EST) Phosphorus 4.9(H) 2.7 - 4.5 mg/dL 11/08/2024 7:23 PM [facility] Blood (Plasma/Serum) 11/08/2024 5:46 PM EST 11/08/2024 6:51 PM EST Eunice Garrison MARKET EDITOR LAB BLOOD ORDERA BLES Performing Organization Address City/[facility]/[place] [address], [place] [address] * Magnesium (Routine) (11/08/2024 5:46 PM EST) Magnesium 1.9 1.6 - 2.7 mg/dL 11/08/2024 7:23 PM [facility] Blood (Plasma/Serum) 11/08/2024 5:46 PM EST 11/08/2024 6:51 PM EST [facility]A BLES Performing Organization Address [facility]/[place] [address], [place] [address] * (ABNORMAL) Basic Metabolic Panel (Routine) (11/08/2024 5:46 PM EST) Glucose 134(H) 65 - 99 mg/dL 11/08/2024 7:23 PM [facility] Comment:Fasting: <100 mg/dL, Non-Fasting: <200 mg/dL (ADA 2005) Blood Urea Nitrogen (BUN) 45(H) 8 - 21 mg/dL 11/08/2024 7:23 PM [facility] Creatinine 1.7(H) 0.5 - 1.3 mg/dL 11/08/2024 7:23 PM [facility] eGFR 45(L) >59 11/08/2024 7:23 PM [facility] Comment:CKD-EPI (2020) in mL /min/1.73 sq meters. Sodium 141 136 - 145 mmol/L 11/08/2024 7:23 PM [facility] Potassium 3.3(L) 3.4 - 5.3 mmol/L 11/08/2024 7:23 PM [facility] Chloride 102 98 - 107 mmol/L 11/08/2024 7:23 PM [facility] CO2 26 22 - 33 mmol/L 11/08/2024 7:23 PM [facility] Anion Gap 13 7 - 17 11/08/2024 7:23 PM [facility] Calcium 8.6(L) 8.7 - 10.5 mg/dL 11/08/2024 7:23 PM [facility] BUN/Creatinine Ratio 26(H) 10.0 - 25.0 Ratio 11/08/2024 7:23 PM [facility] Blood (Plasma/Serum) 11/08/2024 5:46 PM EST 11/08/2024 6:51 PM EST Eunice Garrison MARKET EDITOR [place] [address], [place] [address] * XR Chest 1 view-Portable (STAT) (11/08/2024 [...] prior study. Interpreted by: ??Bashir Barrientos MD Accuracy Expert I personally reviewed the images and the [...] prior study. Interpreted by: Bashir Barrientos MD Accuracy Expert I personally reviewed the images and the [...] CARE TEST O JOSEPH Performing Organization Address [facility] Number [facility] See Below * (ABNORMAL) POCT Glucose, Fingerstick (11/08/2024 7:46 AM EST) POC Glucose 198(H) 65 - 99 mg/dL 11/08/2024 7:55 AM EST Blood specimen / Unknown 11/08/2024 7:46 AM EST 11/08/2024 7:54 AM EST Dallas Camejo MD POINT OF CARE TEST O JOSEPH Performing Organization Address [facility] Number [facility] See Below * CT Head [...] Troponin T (Once) (11/08/2024 12:05 AM EST) High Sensitivity Troponin T 26(H) <23 ng/L 11/08/2024 12:39 AM EST [facility] Delta (Change) NO CHANGE <3 11/08/2024 12:39 AM EST [facility] Blood (Plasma/Serum) 11/08/2024 12:05 AM EST 11/08/2024 12:16 AM EST Kayla Orona MARKET EDITOR LAB BLOOD ORDERABLES [address] [address], [place] [address] * Creatine Kinase (CK) (11/08/2024 12:05 AM EST) Creatine Kinase (CK) 91 24 - 204 U/L 11/08/2024 12:39 AM [facility] Blood (Plasma/Serum) 11/08/2024 12:05 AM EST 11/08/2024 12:16 AM EST Kayla Orona MARKET EDITOR LAB BLOOD ORDERABLES Performing Organization Address City/[facility]/[place] [address], [place] [address] * (ABNORMAL) proBNP, N-terminal (11/08/2024 12:05 AM EST) proBNP, N-terminal 4,241(H) <125 pg/mL 11/08/2024 12:39 AM [facility] Blood Plasma specimen / Unknown 11/08/2024 12:05 AM EST 11/08/2024 12:16 AM EST Kayla Orona MARKET EDITOR LAB BLOOD ORDERABLES Performing Organization Address City/[facility]/[place] [address], [place] [address] * (ABNORMAL) HEPATIC FUNCTION PANEL (11/08/2024 12:05 AM EST) Alkaline Phosphatase 226(H) 45 - 128 U/L 11/08/2024 12:39 AM [facility] Aspartate Aminotrans (AST) 24 10 - 55 U/L 11/08/2024 12:39 AM [facility] Alanine Aminotrans (ALT) 24 10 - 55 U/L 11/08/2024 12:39 AM [facility] Bilirubin, Total <0.2(L) 0.2 - 1.0 mg/dL 11/08/2024 12:39 AM [facility] Protein, Total 5.5(L) 6.3 - 8.3 g/dL 11/08/2024 12:39 AM [facility] Albumin 2.3(L) 3.4 - 4.8 g/dL 11/08/2024 12:39 AM [facility] Bilirubin, Direct 0.1 0 - 0.2 mg/dL 11/08/2024 12:39 AM [facility] Globulin 3.2 1.5 - 3.9 g/dL 11/08/2024 12:39 AM [facility] Albumin/Globulin Ratio 0.7(L) 1.0 - 3.0 Ratio 11/08/2024 12:39 AM [facility] Blood (Plasma/Serum) 11/08/2024 12:05 AM EST 11/08/2024 12:16 AM EST Kayla Orona APRN LAB BLOOD ORDERABLES Performing Organization Address City/State/[facility] [place] [address], [place] [address] * (ABNORMAL) COMPLETE BLOOD COUNT, WITHOUT DIFFERENTIAL (11/08/2024 12:05 AM EST) White Blood Cell Count 13.1(H) 4.0 - 11.0 Thou/uL 11/08/2024 12:22 AM [facility] Platelet Count 378 150 - 450 Thou/uL 11/08/2024 12:22 AM [facility] Hemoglobin 7.9(L) 13.0 - 17.7 g/dL 11/08/2024 12:22 AM [facility] Hematocrit 25.6(L) 39.0 - 54.0 % 11/08/2024 12:22 AM [facility] Red Blood Cell Count 2.83(L) 4.50 - 6.20 Mil/uL 11/08/2024 12:22 AM [facility] MCV 91 80 - 100 fL 11/08/2024 12:22 AM [facility] MCH 27.9 27.0 - 31.0 pg 11/08/2024 12:22 AM [facility] MCHC 30.9 30.0 - 36.0 g/dL 11/08/2024 12:22 AM [facility] RDW 16.9(H) 11.5 - 14.5 % 11/08/2024 12:22 AM [facility] MPV 9.3 7.5 - 12.5 fL 11/08/2024 12:22 AM [facility] Blood Blood specimen / Unknown 11/08/2024 12:05 AM EST 11/08/2024 12:16 AM EST [facility] LAB BLOOD ORDERABLES Performing Organization Address City/[facility]/[place] [address], [place] [address] * (ABNORMAL) Phosphorus (11/08/2024 12:05 AM EST) Phosphorus 5.2(H) 2.7 - 4.5 mg/dL 11/08/2024 12:39 AM [facility] Blood (Plasma/Serum) 11/08/2024 12:05 AM EST 11/08/2024 12:16 AM EST [facility] Performing Organization Address [facility]/[place] [address], [place] [address] * Magnesium (11/08/2024 12:05 AM EST) Magnesium 2.0 1.6 - 2.7 mg/dL 11/08/2024 12:39 AM [facility] Blood (Plasma/Serum) 11/08/2024 12:05 AM EST 11/08/2024 12:16 AM EST [facility]OD [facility] Performing Organization Address City/[facility]/[place] [address], [address] [address] * (ABNORMAL) Basic Metabolic Panel (11/08/2024 12:05 AM EST) Glucose 231(H) 65 - 99 mg/dL 11/08/2024 12:39 AM [facility] Comment:Fasting: <100 mg/dL, Non-Fasting: <200 mg/dL (ADA 2004) Blood Urea Nitrogen (BUN) 48(H) 8 - 21 mg/dL 11/08/2024 12:39 AM [facility] Creatinine 1.6(H) 0.5 - 1.3 mg/dL 11/08/2024 12:39 AM [facility] eGFR 48(L) >59 11/08/2024 12:39 AM [facility] Comment:CKD-EPI (2020) in mL /min/1.73 sq meters. Sodium 133(L) 136 - 145 mmol/L 11/08/2024 12:39 AM [facility] Potassium 3.8 3.4 - 5.3 mmol/L 11/08/2024 12:39 AM [facility] Chloride 98 98 - 107 mmol/L 11/08/2024 12:39 AM [facility] CO2 21(L) 22 - 33 mmol/L 11/08/2024 12:39 AM [facility] Anion Gap 14 7 - 17 11/08/2024 12:39 AM [facility] Calcium 7.9(L) 8.7 - 10.5 mg/dL 11/08/2024 12:39 AM [facility] BUN/Creatinine Ratio 30(H) 10.0 - 25.0 Ratio 11/08/2024 12:39 AM [facility] Blood (Plasma/Serum) 11/08/2024 12:05 AM EST 11/08/2024 12:16 AM EST Kayla Orona APRN LAB BLOOD ORDERABLES [address] [address], [address] [address] * (ABNORMAL) POCT Glucose, Fingerstick (11/07/2024 7:47 PM EST) Pathologist [facility] POC Glucose 261(H) 65 - 99 mg/dL 11/07/2024 7:53 PM EST Blood specimen / Unknown 11/07/2024 7:47 PM EST 11/07/2024 7:53 PM EST Dallas Camejo MD POINT OF CARE TEST O RDERABLES HOSPITAL LAB See Below * Respiratory PCR Panel (11/07/2024 6:30 PM EST) [facility] Adenovirus Not Detected Not Detected 11/08/2024 12:23 AM [facility] Coronavirus 229E Not Detected Not Detected 11/08/2024 12:23 AM [facility] Coronavirus HKU1 Not Detected Not Detected 11/08/2024 12:23 AM [facility] Coronavirus NL63 Not Detected Not Detected 11/08/2024 12:23 AM [facility] Coronavirus OC43 Not Detected Not Detected 11/08/2024 12:23 AM [facility] Human Metapneumovirus Not Detected Not Detected 11/08/2024 12:23 AM [facility] Rhinovirus/Enterov irus Not Detected Not Detected 11/08/2024 12:23 AM [facility] Influenza A Not Detected Not Detected 11/08/2024 12:23 AM [facility] Influenza B Not Detected Not Detected 11/08/2024 12:23 AM [facility] Parainfluenza 1 (PIV1) Not Detected Not Detected 11/08/2024 12:23 AM [facility] Parainfluenza 2 (PIV2) Not Detected Not Detected 11/08/2024 12:23 AM [facility] Parainfluenza 3 (PIV3) Not Detected Not Detected 11/08/2024 12:23 AM [facility] Parainfluenza 4 (PIV4) Not Detected Not Detected 11/08/2024 12:23 AM [facility] Respiratory Syncytial Virus Not Detected Not Detected 11/08/2024 12:23 AM EST [facility] Bordetella pertussis Not Detected Not Detected 11/08/2024 12:23 AM [facility] Chlamydophila pneumoniae Not Detected Not Detected 11/08/2024 12:23 AM [facility] Mycoplasma pneumoniae Not Detected Not Detected 11/08/2024 12:23 AM [facility] Bordetella parapertussis Not Detected Not Detected 11/08/2024 12:23 AM [facility] SARS CoV 2 Not Detected Not Detected 11/08/2024 12:23 AM [facility] X-Specimen 24 Nasopharyngeal swab / Unknown 11/07/2024 6:30 PM EST 11/07/2024 8:00 PM EST Kayla Orona APRN MICROBIOLOGY - GENER AL ORDERABLES [facility] [address] [place] [address], * (ABNORMAL) High Sensitivity Troponin T (Once) (11/07/2024 4:12 PM EST) Pathologist [facility] High Sensitivity Troponin T 29(H) <23 ng/L 11/07/2024 5:28 PM [facility] Delta (Change) 3(H) <3 11/07/2024 5:28 PM [facility] Comment:Increased Blood (Plasma/Serum) 11/07/2024 4:12 PM EST 11/07/2024 5:01 PM EST Kayla Orona APRN LAB BLOOD ORDERABLES [facility] [address] [place] [address], [address] [address] * (ABNORMAL) Phosphorus (11/07/2024 4:12 PM EST) Pathologist [facility] Phosphorus 4.7(H) 2.7 - 4.5 mg/dL 11/07/2024 5:28 PM [facility] Blood (Plasma/Serum) 11/07/2024 4:12 PM EST 11/07/2024 5:01 PM EST [facility] Performing Organization Address City/[facility]/[place] [address], [place] [address] * Magnesium (11/07/2024 4:12 PM EST) Magnesium 2.2 1.6 - 2.7 mg/dL 11/07/2024 5:28 PM [facility] Blood (Plasma/Serum) 11/07/2024 4:12 PM EST 11/07/2024 5:01 PM EST [facility] LAB BLOOD ORDERABLES Performing Organization Address City/[facility]/[place] [address], [place] [address] * (ABNORMAL) Basic Metabolic Panel (11/07/2024 4:12 PM EST) Glucose 183(H) 65 - 99 mg/dL 11/07/2024 5:28 PM [facility] Comment:Fasting: <100 mg/dL, Non-Fasting: <200 mg/dL (ADA 2005) Blood Urea Nitrogen (BUN) 47(H) 8 - 21 mg/dL 11/07/2024 5:28 PM [facility] Creatinine 1.6(H) 0.5 - 1.3 mg/dL 11/07/2024 5:28 PM [facility] eGFR 48(L) >59 11/07/2024 5:28 PM [facility] Comment:CKD-EPI (2020) in mL /min/1.73 sq meters. Sodium 131(L) 136 - 145 mmol/L 11/07/2024 5:28 PM [facility] Potassium 3.7 3.4 - 5.3 mmol/L 11/07/2024 5:28 PM [facility] Chloride 98 98 - 107 mmol/L 11/07/2024 5:28 PM [facility] CO2 21(L) 22 - 33 mmol/L 11/07/2024 5:28 PM EST [facility] Anion Gap 12 7 - 17 11/07/2024 5:28 PM EST [facility] Calcium 8.1(L) 8.7 - 10.5 mg/dL 11/07/2024 5:28 PM EST [facility] BUN/Creatinine Ratio 29(H) 10.0 - 25.0 Ratio 11/07/2024 5:28 PM EST [facility] Blood (Plasma/Serum) 11/07/2024 4:12 PM EST 11/07/2024 5:01 PM EST Kayla Orona APRN LAB BLOOD ORDERABLES Performing Organization Address City/[facility]/[place] [address], [place] [address] * (ABNORMAL) POCT Glucose, Fingerstick (11/07/2024 3:53 PM EST) POC Glucose 179(H) 65 - 99 mg/dL 11/07/2024 3:58 PM EST Blood specimen / Unknown 11/07/2024 3:53 PM EST 11/07/2024 3:58 PM EST Dallas Camejo MD POINT OF CARE TEST O RDERABLES HOSPITAL LAB See Below * ECG 12 lead (11/07/2024 2:58 PM EST) Systolic BP 116 mmHg EKG [facility] Diastolic BP 57 mmHg EKG [facility] Ventricular rate 62 BPM EKG [facility] Atrial rate 55 BPM EKG [facility] QRS duration 168 ms EKG [facility] Q-T interval 506 ms EKG [facility] QTC calculation (Bazett) 513 ms EKG [facility] R axis 104 degrees EKG [facility] T axis -39 degrees EKG [facility] 11/07/2024 2:58 PM EST Narrative EKG [facility] - 11/07/2024 6:25 PM EST [...] MD ECG ORDERABLES Performing Organization Address City/[facility]/ZIP Co de Phone Number EKG [facility] * BLOOD CULTURE Peripheral (11/07/2024 1:02 PM EST) Culture Sterile after 5 days 11/12/2024 7:50 AM EST [facility] Microbiology Peripheral blood specimen / Unknown 11/07/2024 1:02 PM EST 11/07/2024 1:23 PM EST Chris Taylor MD LAB AMB MICRO ORDERA BLES Performing Organization Address [facility] Co de Phone Number [facility] [address] ImmigrationALLE[facility] [place] [address], * BLOOD CULTURE Peripheral (11/07/2024 12:57 PM EST) Culture Sterile after 5 days 11/12/2024 7:50 AM EST [facility] Microbiology Peripheral blood specimen / Unknown 11/07/2024 12:57 PM EST 11/07/2024 1:49 PM EST Chris Taylor MD LAB AMB MICRO ORDERA BLES Performing Organization Address [facility] Co de Phone Number [facility] [address] [place] [address], [place] * (ABNORMAL) Blood Gas, Arterial (STAT) (11/07/2024 12:36 PM EST) pH, Arterial 7.38 7.35 - 7.45 11/07/2024 1:02 PM EST [facility] pCO2, Arterial 36 32 - 45 mmHG 11/07/2024 1:02 PM EST [facility] pO2, Arterial 119(H) 75 - 95 mmHG 11/07/2024 1:02 PM EST [facility] CO2, Total 22 22 - 28 mmol/L 11/07/2024 1:02 PM [facility] Respiratory Info OTHER 11/07/19 12:36 PM EST Base Deficiency 3.5 mmol/L 1:02 PM [facility] Comment:Reference Range: Neg ative 2 to Positive 3 Blood Blood specimen / Unknown 11/07/2024 12:36 PM EST 11/07/2024 12:50 PM EST Kayla Orona APRN LAB BLOOD ORDERABLES Performing Organization Address [facility]/[place] [address], [place] [address] * (ABNORMAL) POCT Glucose, Fingerstick (11/07/2024 12:29 PM EST) Pathologist [facility] POC Glucose 213(H) 65 - 99 mg/dL [...] to prior. Interpreted by: ??Roberto Tolbert MD Accuracy Expert I personally reviewed the images and the [...] to prior. Interpreted by: Roberto Tolbert MD Accuracy Expert I personally reviewed the images and the resident's preliminary report and AGREE with the report as it is now presented ([id number]). Juaquin Kern MD IMG DIAGNOSTIC [facility] GING ORDERABLES * (ABNORMAL) High Sensitivity Troponin T (11/07/2024 8:13 AM EST) High Sensitivity Troponin T 26(H) <23 ng/L 11/07/2024 12:53 PM EST [facility] Delta (Change) NO PREVIOUS RESULT <3 11/07/2024 12:53 PM EST [facility] Plasma/Serum 11/07/2024 8:13 AM EST 11/07/2024 8:49 AM EST Juaquin Kern MD [place] [address], [address] [address] * (ABNORMAL) proBNP, N-terminal (11/07/2024 8:13 AM EST) Pathologist [facility] proBNP, N-terminal 3,427(H) <125 pg/mL 11/07/2024 10:25 AM [facility] Plasma specimen / Unknown 11/07/2024 8:13 AM EST 11/07/2024 8:49 AM EST Juaquin Kern MD [place] [address], [place] [address] * (ABNORMAL) Complete Blood Count, WITHOUT Differential (routine) (11/07/2024 8:13 AM EST) Pathologist [facility] White Blood Cell Count 12.4(H) 4.0 - 11.0 Thou/uL 11/07/2024 9:05 AM [facility] Platelet Count 430 150 - 450 Thou/uL 11/07/2024 9:05 AM [facility] Hemoglobin 8.9(L) 13.0 - 17.7 g/dL 11/07/2024 9:05 AM [facility] Hematocrit 28.9(L) 39.0 - 54.0 % 11/07/2024 9:05 AM [facility] Red Blood Cell Count 3.16(L) 4.50 - 6.20 Mil/uL 11/07/2024 9:05 AM [facility] MCV 92 80 - 100 fL 11/07/2024 9:05 AM [facility] MCH 28.2 27.0 - 31.0 pg 11/07/2024 9:05 AM [facility] MCHC 30.8 30.0 - 36.0 g/dL 11/07/2024 9:05 AM [facility] RDW 16.7(H) 11.5 - 14.5 % 11/07/2024 9:05 AM [facility] MPV 9.6 7.5 - 12.5 fL 11/07/2024 9:05 AM [facility] nRBC 0.2(H) 0.0 - 0.1 /100 WBC 11/07/2024 9:05 AM [facility] nRBC, Absolute 0.03(H) 0.00 - 0.02 Thou/uL 11/07/2024 9:05 AM [facility] Blood Blood specimen / Unknown 11/07/2024 8:13 AM EST 11/07/2024 8:49 AM EST Juaquin Kern MD LAB BLOOD ORDERABL ES Performing Organization Address City/[facility]/[place] [address], [place] [address] * MAGNESIUM (11/07/2024 8:13 AM EST) Magnesium 2.3 1.6 - 2.7 mg/dL 11/07/2024 9:26 AM [facility] Blood (Plasma/Serum) 11/07/2024 8:13 AM EST 11/07/2024 8:49 AM EST Juaquin Kern MD LAB BLOOD ORDERABL ES Performing Organization Address [facility] [place] [address], [place] [address] * PHOSPHORUS (11/07/2024 8:13 AM EST) Phosphorus 4.3 2.7 - 4.5 mg/dL 11/07/2024 9:26 AM [facility] Blood (Plasma/Serum) 11/07/2024 8:13 AM EST 11/07/2024 8:49 AM EST Juaquin Kern MD LAB BLOOD ORDERABL ES Performing Organization Address City/[facility]/[place] [address], [place] [address] * (ABNORMAL) Comprehensive Metabolic Panel (11/07/2024 8:13 AM [facility] Glucose 188(H) 65 - 99 mg/dL 11/07/2024 9:26 AM [facility] Comment:Fasting: <100 mg/dL, Non-Fasting: <200 mg/dL (ADA 2004) Blood Urea Nitrogen (BUN) 47(H) 8 - 21 mg/dL 11/07/2024 9:26 AM [facility] Creatinine 1.5(H) 0.5 - 1.3 mg/dL 11/07/2024 9:26 AM [facility] eGFR 52(L) >59 11/07/2024 9:26 AM [facility] Comment:CKD-EPI (2020) in mL /min/1.73 sq meters. Sodium 129(L) 136 - 145 mmol/L 11/07/2024 9:26 [facility] Potassium 3.9 3.4 - 5.3 mmol/L 11/07/2024 9:26 AM [facility] Chloride 94(L) 98 - 107 mmol/L 11/07/2024 9:26 AM [facility] CO2 22 22 - 33 mmol/L 11/07/2024 9:26 AM [facility] Calcium 8.3(L) 8.7 - 10.5 mg/dL 11/07/2024 9:26 AM [facility] Alkaline Phosphatase 220(H) 45 - 128 U/L 11/07/2024 9:26 [facility] Aspartate Aminotrans (AST) 28 10 - 55 U/L 11/07/2024 9:26 AM [facility] Alanine Aminotrans (ALT) 29 10 - 55 U/L 11/07/2024 9:26 AM [facility] Bilirubin, Total 0.2 0.2 - 1.0 mg/dL 11/07/2024 9:26 AM [facility] Protein, Total 6.1(L) 6.3 - 8.3 g/dL 11/07/2024 9:26 AM [facility] Albumin 2.6(L) 3.4 - 4.8 g/dL 11/07/2024 9:26 AM [facility] BUN/Creatinine Ratio 31(H) 10.0 - 25.0 Ratio 11/07/2024 9:26 AM EST [facility] Globulin 3.5 1.5 - 3.9 g/dL 11/07/2024 9:26 AM [facility] Albumin/Globulin Ratio 0.7(L) 1.0 - 3.0 Ratio 11/07/2024 9:26 AM EST [facility] Anion Gap 13 7 - 17 11/07/2024 9:26 AM EST [facility] Blood (Plasma/Serum) 11/07/2024 8:13 AM EST 11/07/2024 8:49 AM EST Juaquin Kern MD [place] [address], [place] [address] * (ABNORMAL) POCT Glucose, Fingerstick (11/07/2024 7:33 [...] CARE TEST [place] Performing Organization Address [facility] LAB See Below * (ABNORMAL) POCT Glucose, Fingerstick (11/06/2024 5:24 PM EST) POC Glucose 193(H) 65 - 99 mg/dL 11/06/2024 5:29 PM EST Blood specimen / Unknown 11/06/2024 5:24 PM EST 11/06/2024 5:29 PM EST Dallas Camejo MD POINT OF CARE TEST [place] Performing Organization Address [facility] LAB See Below * (ABNORMAL) POCT Glucose, Fingerstick (11/06/2024 2:45 PM EST) POC Glucose 217(H) 65 - 99 mg/dL 11/06/2024 2:46 PM EST Blood specimen / Unknown 11/06/2024 2:45 PM EST 11/06/2024 2:46 PM EST Dallas Camejo MD POINT OF CARE TEST [place] Performing Organization Address [facility] LAB See Below * (ABNORMAL) POCT Glucose, Fingerstick (11/06/2024 12:10 PM EST) POC Glucose 229(H) 65 - 99 mg/dL 11/06/2024 2:24 PM EST Blood specimen / Unknown 11/06/2024 12:10 PM EST 11/06/2024 2:24 PM EST Dallas Camejo MD POINT OF CARE TEST [place] Performing Organization Address [facility]/ZIP Co de Phone Number HOSPITAL LAB See [...] 4.0 - 11.0 Thou/uL 11/06/2024 5:26 AM [facility] Platelet Count 346 150 - 450 Thou/uL 11/06/2024 5:26 AM [facility] Hemoglobin 8.7(L) 13.0 - 17.7 g/dL 11/06/2024 5:26 AM [facility] Hematocrit 27.9(L) 39.0 - 54.0 % 11/06/2024 5:26 AM [facility] Red Blood Cell Count 3.05(L) 4.50 - 6.20 Mil/uL 11/06/2024 5:26 AM [facility] MCV 92 80 - 100 fL 11/06/2024 5:26 AM [facility] MCH 28.5 27.0 - 31.0 pg 11/06/2024 5:26 AM [facility] MCHC 31.2 30.0 - 36.0 g/dL 11/06/2024 5:26 AM [facility] RDW 16.4(H) 11.5 - 14.5 % 11/06/2024 5:26 AM [facility] MPV 9.5 7.5 - 12.5 fL 11/06/2024 5:26 AM [facility] Neutrophils Auto 88.8 % 11/06/19 5:26 AM [facility] Immature Granulocytes 1.1 % 11/06/2024 5:26 AM [facility] Lymphocytes Auto 3.4 % 11/06/19 5:26 AM [facility] Monocytes Auto 6.6 % 11/06/2024 5:26 AM [facility] Eosinophils Auto 0.0 % 11/06/19 5:26 AM [facility] Basophils Auto 0.1 % 11/06/2024 5:26 AM [facility] Abs Neutrophils Auto 10.57(H) 2.00 - 7.50 Thou/uL 11/06/2024 5:26 AM [facility] Abs Immature Granulocytes 0.13(H) 0.00 - 0.10 Thou/uL 11/06/2024 5:26 AM [facility] Abs Lymphocytes Auto 0.41(L) 1.50 - 4.50 Thou/uL 11/06/2024 5:26 AM [facility] Abs Monocytes Auto 0.79 0.20 - 1.50 Thou/uL 11/06/2024 5:26 AM [facility] Abs Eosinophils Auto 0.00 0.00 - 0.70 Thou/uL 11/06/2024 5:26 AM [facility] Abs Basophils Auto 0.01 0.00 - 0.20 Thou/uL 11/06/2024 5:26 AM [facility] Blood Blood specimen / Unknown 11/06/2024 4:58 AM EST 11/06/2024 5:15 AM EST Renea PATTON LAB BLOOD ORDERABLES Performing Organization Address City/[facility]/[place] [address], [place] [address] * (ABNORMAL) PHOSPHORUS (11/06/2024 4:58 AM EST) Phosphorus 5.1(H) 2.7 - 4.5 mg/dL 11/06/2024 5:46 AM [facility] Blood (Plasma/Serum) 11/06/2024 4:58 AM EST 11/06/2024 5:15 AM EST Renea PATTON LAB BLOOD ORDERABLES [facility] [address] [place] [address], [facility] [address] [place] [address] * MAGNESIUM (11/06/2024 4:58 AM EST) Magnesium 2.5 1.6 - 2.7 mg/dL 11/06/2024 5:46 AM [facility] Blood (Plasma/Serum) 11/06/2024 4:58 AM EST 11/06/2024 5:15 AM EST Renea PATTON LAB BLOOD ORDERABLES Performing Organization Address City/[facility]/ZIP Co de Phone Number [facility] [address] [place] [address], [place] [address] * (ABNORMAL) Comprehensive Metabolic Panel (11/06/2024 4:58 AM EST) Glucose 194(H) 65 - 99 mg/dL 11/06/2024 5:46 AM [facility] Comment:Fasting: <100 mg/dL, Non-Fasting: <200 mg/dL (ADA 2004) Blood Urea Nitrogen (BUN) 48(H) 8 - 21 mg/dL 11/06/2024 5:46 AM [facility] Creatinine 1.7(H) 0.5 - 1.3 mg/dL 11/06/2024 5:46 AM [facility] eGFR 45(L) >59 11/06/2024 5:46 AM [facility] Comment:CKD-EPI (2020) in mL /min/1.73 sq meters. Sodium 131(L) 136 - 145 mmol/L 11/06/2024 5:46 AM [facility] Potassium 3.8 3.4 - 5.3 mmol/L 11/06/2024 5:46 AM [facility] Chloride 99 98 - 107 mmol/L 11/06/2024 5:46 AM [facility] CO2 20(L) 22 - 33 mmol/L 11/06/2024 5:46 AM [facility] Calcium 7.8(L) 8.7 - 10.5 mg/dL 11/06/2024 5:46 AM [facility] Alkaline Phosphatase 270(H) 45 - 128 U/L 11/06/2024 5:46 AM [facility] Aspartate Aminotrans (AST) 50 10 - 55 U/L 11/06/2024 5:46 AM [facility] Alanine Aminotrans (ALT) 31 10 - 55 U/L 11/06/2024 5:46 AM [facility] Bilirubin, Total 0.2 0.2 - 1.0 mg/dL 11/06/2024 5:46 AM [facility] Protein, Total 5.7(L) 6.3 - 8.3 g/dL 11/06/2024 5:46 AM [facility] Albumin 2.4(L) 3.4 - 4.8 g/dL 11/06/2024 5:46 AM [facility] BUN/Creatinine Ratio 28(H) 10.0 - 25.0 Ratio 11/06/2024 5:46 AM [facility] Globulin 3.3 1.5 - 3.9 g/dL 11/06/2024 5:46 AM [facility] Albumin/Globulin Ratio 0.7(L) 1.0 - 3.0 Ratio 11/06/2024 5:46 AM [facility] Anion Gap 12 7 - 17 11/06/2024 5:46 AM [facility] Blood (Plasma/Serum) 11/06/2024 4:58 AM EST 11/06/2024 5:15 AM EST Renea PATTON [place] [address], [place] [address] * BLOOD CULTURE Peripheral (11/06/2024 4:58 AM EST) Culture Sterile after 5 days 11/11/2024 8:20 AM [facility] Microbiology Peripheral blood specimen / Unknown 11/06/2024 4:58 AM EST 11/06/2024 5:36 AM EST Renea PATTON LAB AMB MICRO ORDERA BLES Performing Organization Address City/[facility]/ZIP Co de Phone Number [facility] [address] [place] [address], * BLOOD CULTURE Peripheral (11/06/2024 4:58 AM EST) Culture Sterile after 5 days 11/11/2024 8:20 AM EST [facility] Microbiology Peripheral blood specimen / Unknown 11/06/2024 4:58 AM EST 11/06/2024 5:36 AM EST Renea PATTON LAB AMB MICRO ORDERA BLES Performing Organization Address [facility] Co de Phone Number [facility] [address] * (ABNORMAL) POCT Glucose, Fingerstick (11/06/2024 [...] CARE TEST O RDERALUCILLE Performing Organization Address [facility] Number [facility] See Below * (ABNORMAL) POCT Glucose, Fingerstick (11/05/2024 3:37 PM EST) POC Glucose 138(H) 65 - 99 mg/dL 11/05/2024 3:38 PM EST Blood specimen / Unknown 11/05/2024 3:37 PM EST 11/05/2024 3:38 PM EST Dallas Camejo MD POINT OF CARE TEST O RDERALUCILLE Performing Organization Address [facility] Number [facility] See Below * Pathology (11/05/2024 2:11 PM EST) Report [facility] [id number] ?? CLIA ID [id number] [address] [place] [address] ??[id number] [phone] Surgical Pathology Report PATIENT NAME: BLAS GENAO REC NUMBER: [id number] (AGE): 1960 (Age: 63) SPECIMEN NUMBER: [id number] DATE OBTAINED: 11/05/2024 DIAGNOSIS LEFT LOWER EXTREMITY, BELOW KNEE AMPUTATION: ??SEVERE PERIPHERAL ARTERIOSCLEROSIS WITH CALCIFICATION, GANGRENOUS ULCER OF FOOT WITH SEVERE ACUTE OSTEOMYELITIS. NEGATIVE AMPUTATION MARGIN. /11/16/2024 Electronically Signed Out ? SENA SHABAZZ MD COMMENT [id number] Clinical Information and History: Acute osteomyelitis of [...] other masses or lesions are grossly identified. ??[employer] Supervisor sections are submitted in A1 - ?? [...] tibial artery margin (inked blue), en face [facility] Bone with Tissue Structure of left lower leg / Unknown 11/05/2024 2:11 PM EST Dallas Camejo MD PATHOLOGY/CYTOLOGY O RDERABLES Performing Organization Address [facility] Co wy Phone Number [facility] See Below * (ABNORMAL) POCT Glucose, Fingerstick (11/05/2024 12:54 PM EST) POC Glucose 128(H) 65 - 99 mg/dL 11/05/2024 2:08 PM EST Blood specimen / Unknown 11/05/2024 12:54 PM EST 11/05/2024 2:08 PM EST Dallas Camejo MD POINT OF CARE TEST O RDERABLES Performing Organization Address [facility] Phone Number [facility] See Below * (ABNORMAL) PROTIME-INR (11/05/2024 7:12 AM EST) Anticoagulant Information not given 11/05/2024 7:47 AM [facility] Prothrombin Time (PT) 15.3(H) 10.0 - 13.5 seconds 11/05/2024 8:07 AM [facility] INR 1.3 11/05/2024 8:07 AM [facility] Comment:INR Therapeutic Rang es: Standard dose anticoagulant 2.0 to 3.0, High dose anticoagulant 2.5-3.5. Plasma specimen / Unknown 11/05/2024 7:12 AM EST 11/05/2024 7:46 AM EST Chris Taylor MD [place] [address], [place] [address] * (ABNORMAL) COMPLETE BLOOD COUNT, WITHOUT DIFFERENTIAL (11/05/2024 7:12 AM EST) Pathologist [facility] White Blood Cell Count 15.9(H) 4.0 - 11.0 Thou/uL 11/05/2024 7:59 AM [facility] Platelet Count 353 150 - 450 Thou/uL 11/05/2024 7:59 AM [facility] Hemoglobin 9.1(L) 13.0 - 17.7 g/dL 11/05/2024 7:59 AM [facility] Hematocrit 28.3(L) 39.0 - 54.0 % 11/05/2024 7:59 AM [facility] Red Blood Cell Count 3.12(L) 4.50 - 6.20 Mil/uL 11/05/2024 7:59 AM [facility] MCV 91 80 - 100 fL 11/05/2024 7:59 AM [facility] MCH 29.2 27.0 - 31.0 pg 11/05/2024 7:59 AM [facility] MCHC 32.2 30.0 - 36.0 g/dL 11/05/2024 7:59 AM [facility] RDW 16.8(H) 11.5 - 14.5 % 11/05/2024 7:59 AM [facility] MPV 9.8 7.5 - 12.5 fL 11/05/2024 7:59 AM [facility] Blood specimen / Unknown 11/05/2024 7:12 AM EST 11/05/2024 7:46 AM EST Chris Taylor MD [place] [address], [place] [address] * (ABNORMAL) BASIC METABOLIC PANEL (11/05/2024 7:12 AM EST) Pathologist [facility] Glucose 146(H) 65 - 99 mg/dL 11/05/2024 8:18 AM [facility] Comment:Fasting: <100 mg/dL, Non-Fasting: <200 mg/dL (ADA 2005) Blood Urea Nitrogen (BUN) 47(H) 8 - 21 mg/dL 11/05/2024 8:18 AM [facility] Creatinine 2.0(H) 0.5 - 1.3 mg/dL 11/05/2024 8:18 AM [facility] eGFR 37(L) >59 11/05/2024 8:18 AM [facility] Comment:CKD-EPI (2020) in mL /min/1.73 sq meters. Sodium 130(L) 136 - 145 mmol/L 11/05/2024 8:18 AM [facility] Potassium 3.4 3.4 - 5.3 mmol/L 11/05/2024 8:18 AM [facility] Chloride 96(L) 98 - 107 mmol/L 11/05/2024 8:18 AM [facility] CO2 19(L) 22 - 33 mmol/L 11/05/2024 8:18 AM [facility] Anion Gap 15 7 - 17 11/05/2024 8:18 AM [facility] Calcium 7.9(L) 8.7 - 10.5 mg/dL 11/05/2024 8:18 AM [facility] BUN/Creatinine Ratio 24 10.0 - 25.0 Ratio 11/05/2024 8:18 AM [facility] Plasma/Serum 11/05/2024 7:12 AM EST 11/05/2024 7:46 AM EST Chris Taylor MD [place] [address], [address] [address] * (ABNORMAL) Hepatic Function Panel (AM) (11/05/2024 7:12 AM EST) Alkaline Phosphatase 153(H) 45 - 128 U/L 11/05/2024 8:18 AM [facility] Aspartate Aminotrans (AST) 26 10 - 55 U/L 11/05/2024 8:18 AM [facility] Alanine Aminotrans (ALT) 23 10 - 55 U/L 11/05/2024 8:18 AM [facility] Bilirubin, Total 0.3 0.2 - 1.0 mg/dL 11/05/2024 8:18 AM [facility] Protein, Total 5.9(L) 6.3 - 8.3 g/dL 11/05/2024 8:18 AM [facility] Albumin 2.5(L) 3.4 - 4.8 g/dL 11/05/2024 8:18 AM [facility] Bilirubin, Direct 0.2 0 - 0.2 mg/dL 11/05/2024 8:18 AM [facility] Globulin 3.4 1.5 - 3.9 g/dL 11/05/2024 8:18 AM [facility] Albumin/Globulin Ratio 0.7(L) 1.0 - 3.0 Ratio 11/05/2024 8:18 AM [facility] Blood (Plasma/Serum) 11/05/2024 7:12 AM EST 11/05/2024 7:46 AM EST Chris Taylor MD [place] [address], [place] [address] * Creatine Kinase, Reflex to CKMB (11/05/2024 7:12 AM EST) Creatine Kinase (CK) 49 24 - 204 U/L 11/05/2024 8:18 AM [facility] Blood (Plasma/Serum) 11/05/2024 7:12 AM EST 11/05/2024 7:46 AM EST Chris Taylor MD [place] [address], [place] [address] * (ABNORMAL) POCT Glucose, Fingerstick (11/05/2024 6:26 AM EST) POC Glucose 166(H) 65 - 99 mg/dL 11/05/2024 6:27 AM EST Blood specimen / Unknown 11/05/2024 6:26 AM EST 11/05/2024 6:27 AM EST Dallas Camejo MD POINT OF CARE TEST O RDERALUCILLE Performing Organization Address [facility] Number [facility] See Below * (ABNORMAL) POCT Glucose, Fingerstick (11/05/2024 1:46 AM EST) POC Glucose 176(H) 65 - 99 mg/dL 11/05/2024 1:47 AM EST Blood specimen / Unknown 11/05/2024 1:46 AM EST 11/05/2024 1:47 AM EST Dallas Camejo MD POINT OF CARE TEST O RDGHANSHYAM Performing Organization Address [facility] Number [facility] See Below * XR Chest 1 view-Portable (STAT) (11/04/2024 11:17 PM EST) Anatomical Region Laterality Modality Chest Computed Radiogr aphy 11/04/2024 10:5 4 PM EST Impressions 11/05/2024 5:04 AM EST Bilateral reticulonodular opacities concerning for interstitial edema. Superimposed atypical infection cannot be ruled out. Interpreted by: ??David Vogt DO Accuracy Expert I personally reviewed the images and the [...] ruled out. Interpreted by: David Vogt DO Accuracy Expert I personally reviewed the images and the [...] TEST O JOSEPH Performing Organization Address City/[facility] Co de Phone Number HOSPITAL LAB See Below * (ABNORMAL) POCT Glucose, Fingerstick (11/04/2024 5:00 PM EST) POC Glucose 172(H) 65 - 99 mg/dL 11/04/2024 5:22 PM EST Blood specimen / Unknown 11/04/2024 5:00 PM EST 11/04/2024 5:22 PM EST Dallas Camejo MD POINT OF CARE TEST O JOSEPH Performing Organization Address [facility]/State/[facility] Co de Phone Number HOSPITAL LAB [...] 4.0 - 11.0 Thou/uL 11/04/2024 11:38 AM [facility] Platelet Count 326 150 - 450 Thou/uL 11/04/2024 11:38 AM [facility] Hemoglobin 8.7(L) 13.0 - 17.7 g/dL 11/04/2024 11:38 AM [facility] Hematocrit 28.0(L) 39.0 - 54.0 % 11/04/2024 11:38 AM [facility] Red Blood Cell Count 3.05(L) 4.50 - 6.20 Mil/uL 11/04/2024 11:38 AM [facility] MCV 92 80 - 100 fL 11/04/2024 11:38 AM [facility] MCH 28.5 27.0 - 31.0 pg 11/04/2024 11:38 AM [facility] MCHC 31.1 30.0 - 36.0 g/dL 11/04/2024 11:38 AM [facility] RDW 16.6(H) 11.5 - 14.5 % 11/04/2024 11:38 AM [facility] MPV 9.4 7.5 - 12.5 fL 11/04/2024 11:38 AM [facility] Blood Blood specimen / Unknown 11/04/2024 11:19 AM EST 11/04/2024 11:28 AM EST Renea PATTON LAB BLOOD ORDERABLES Performing Organization Address City/[facility]/ZIP Co de Phone Number [address] [address], [address] [address] * (ABNORMAL) BLOOD CULTURE Peripheral (11/04/2024 11:03 AM EST) Gram stain suggestive of Gram positive cocci in clusters 11/07/2024 10:29 AM EST [facility] Culture Methicillin Resistant Staph aureus (MRSA) Aerobic bottle positive. Susceptibility of the same isolate identification, from the same apparent body site is only performed once per 5 calendar days. ?See susceptibilities reported on specimen collected 11/02/2024 (A) 11/08/2024 12:21 PM EST [facility] Microbiology Peripheral blood specimen / Unknown 11/04/2024 11:03 AM EST 11/04/2024 12:35 PM EST Chris Taylor MD LAB AMB MICRO ORDERA BLES Performing Organization Address [facility] Co de Phone Number [facility] [address] [place] [address], * (ABNORMAL) BLOOD CULTURE Peripheral (11/04/2024 11:03 AM EST) Gram stain suggestive of Gram positive cocci in clusters 11/07/2024 1:43 PM EST [facility] Culture Methicillin Resistant Staph aureus (MRSA) Aerobic bottle positive. Susceptibility of the same isolate identification, from the same apparent body site is only performed once per 5 calendar days. ?See susceptibilities reported on specimen collected 11/02/2024 (A) 11/08/2024 12:17 PM EST [facility] Microbiology Peripheral blood specimen / Unknown 11/04/2024 11:03 AM EST 11/04/2024 12:35 PM EST Chris Taylor MD LAB AMB MICRO ORDERA BLES Performing Organization Address [facility] Co de Phone Number [facility] [address] [place] [address], * (ABNORMAL) Basic Metabolic Panel (Routine) (11/04/2024 10:50 AM EST) Glucose 184(H) 65 - 99 mg/dL 11/04/2024 11:53 AM [facility] Comment:Fasting: <100 mg/dL, Non-Fasting: <200 mg/dL (ADA 2004) Blood Urea Nitrogen (BUN) 48(H) 8 - 21 mg/dL 11/04/2024 11:53 AM [facility] Creatinine 2.0(H) 0.5 - 1.3 mg/dL 11/04/2024 11:53 AM [facility] eGFR 37(L) >59 11/04/2024 11:53 AM [facility] Comment:CKD-EPI (2020) in mL /min/1.73 sq meters. Sodium 130(L) 136 - 145 mmol/L 11/04/2024 11:53 AM [facility] Potassium 3.7 3.4 - 5.3 mmol/L 11/04/2024 11:53 AM [facility] Chloride 95(L) 98 - 107 mmol/L 11/04/2024 11:53 AM [facility] CO2 21(L) 22 - 33 mmol/L 11/04/2024 11:53 AM [facility] Anion Gap 14 7 - 17 11/04/2024 11:53 AM [facility] Calcium 7.7(L) 8.7 - 10.5 mg/dL 11/04/2024 11:53 AM [facility] BUN/Creatinine Ratio 24 10.0 - 25.0 Ratio 11/04/2024 11:53 AM [facility] Blood (Plasma/Serum) 11/04/2024 10:50 AM EST 11/04/2024 11:28 AM [facility] Juaquin Kern MD [place] [address], [place] [address] * ECHOCARDIOGRAM COMPREHENSIVE (11/04/2024 9:05 AM EST) [...] ?Compared to previous outside study report from [facility] on 08/05/2024, Mitral and tricuspid regurgitation [...] Compared to previous outside study report from [facility] on 08/05/2024, Mitral and tricuspid regurgitation were not previously reported. Ena Mtz MD CV ECHO ORDERABL ES * (ABNORMAL) POCT Glucose, Fingerstick (11/04/2024 7:26 AM EST) POC Glucose 141(H) 65 - 99 mg/dL 11/04/2024 7:30 AM EST Blood specimen / Unknown 11/04/2024 7:26 AM EST 11/04/2024 7:30 AM EST Dallas Camejo MD POINT OF CARE TEST O RDERALUCILLE Performing Organization Address [facility] Phone Number HOSPITAL LAB See Below * [...] BANK PRODUCT O RDERABLES Performing Organization Address [facility] Phone Number [facility] See Below * (ABNORMAL) POCT Glucose, Fingerstick (11/03/2024 9:25 PM EST) POC Glucose 229(H) 65 - 99 mg/dL 11/03/2024 9:26 PM EST Blood specimen / Unknown 11/03/2024 9:25 PM EST 11/03/2024 9:26 PM EST Dallas Camejo MD POINT OF CARE TEST O RDERALUCILLE Performing Organization Address [facility] Co wy Phone Number HOSPITAL LAB See Below * (ABNORMAL) POCT Glucose, Fingerstick (11/03/2024 5:50 PM EST) POC Glucose 158(H) 65 - 99 mg/dL 11/03/2024 6:19 PM EST Blood specimen / Unknown 11/03/2024 5:50 PM EST 11/03/2024 6:19 PM EST Dallas Camejo MD POINT OF CARE TEST O RDERALUCILLE [facility] See Below * (ABNORMAL) POCT Glucose, Fingerstick (11/03/2024 11:43 AM EST) POC Glucose 153(H) 65 - 99 mg/dL 11/03/2024 11:48 AM EST Blood specimen / Unknown 11/03/2024 11:43 AM EST 11/03/2024 11:48 AM EST Dallas Camejo MD POINT OF CARE TEST O RDERALUCILLE Performing Organization Address [facility]/ZIP Co de Phone Number [facility] See Below * Creatine Kinase (CK) (11/03/2024 10:52 AM EST) Pathologist [facility] Creatine Kinase (CK) 61 24 - 204 U/L 11/03/2024 11:37 AM EST [facility] Blood (Plasma/Serum) 11/03/2024 10:52 AM EST 11/03/2024 11:10 AM EST Ena Mtz MD LAB BLOOD ORDERA BLES Performing Organization Address [facility] [place] [address], [place] [address] * (ABNORMAL) POCT Glucose, Fingerstick (11/03/2024 7:56 AM EST) POC Glucose 165(H) 65 - 99 mg/dL 11/03/2024 8:04 AM EST Blood specimen / Unknown 11/03/2024 7:56 AM EST 11/03/2024 8:04 AM EST Dallas Camejo MD POINT OF CARE TEST O RDERALUCILLE [facility] See Below * MRSA PCR Screen, Qualitative (11/03/2024 3:24 AM EST) MRSA Result Not Detected Not Detected 7:00 AM EST [facility] Comment:Performed by the Xpe rt MRSA NxG Assay X-Specimen 12 Specimen from nose / Unknown 11/03/2024 3:24 AM EST 11/03/2024 5:23 AM EST Kenzie PATTON MICROBIOLOGY - GENE RAL ORDERABLES Performing Organization Address [facility] [place] [address], [place] [address] * ECG 12 lead (STAT) (11/02/2024 9:34 PM EST) Ventricular rate 70 BPM EKG [facility] Atrial rate 70 BPM EKG [facility] P-R interval 272 ms EKG [facility] QRS duration 202 ms EKG [facility] Q-T interval 510 ms EKG [facility] QTC calculation (Bazett) 551 ms EKG [facility] P axis 81 degrees EKG [facility] R axis 29 degrees EKG [facility] T axis 132 degrees [facility] 11/02/2024 9:34 PM EST Narrative EKG [facility] - 11/03/2024 4:30 PM EST Atrial-sensed ventricular-paced rhythm with prolonged AV conduction Abnormal ECG When compared with ECG of 15-Sep-2024 06:25, Vent. rate has increased by ?? 9 bpm Confirmed by MD Hagan David ([id number]) on 11/03/2024 4:30:25 PM Procedure Note Depe Hagan MD - 11/03/2024 Atrial-sensed ventricular-paced rhythm with prolonged AV conduction Abnormal ECG When compared with ECG of 15-Sep-2024 06:25, Vent. rate has increased by 9 bpm Confirmed by MD Hagan David ([id number]) on 11/03/2024 4:30:25 PM Kenzie PATTON ECG ORDERABLES Performing Organization Address [facility] Co de Phone Number [facility] * (ABNORMAL) POCT [...] 6:06 PM [facility] BC ID PCR Result Summary Enterococcus faecium Vancomycin resistance gene detected by molecular method. Please refer to detailed susceptibility results when available and suggest consultation with Infectious Diseases for management. 11/03/2024 6:06 PM [facility] BC ID PCR Result Summary Methicillin Resistant Staph aureus (MRSA) 11/03/2024 6:06 PM [facility] Methicillin resistance gene mecA/C Detected(A) 11/03/2024 6:06 PM [facility] Vancomycin resistance genes Eugenia/B Detected(A) 11/03/2024 6:06 PM [facility] Enterococcus faecalis Detected(A) 11/03/2024 6:06 PM [facility] Enterococcus faecium Detected(A) 11/03/2024 6:06 PM [facility] Listeria monocytogenes Not Detected 11/03/2024 6:06 PM [facility] Staphylococcus Detected(A) 6:06 PM [facility] Staphylococcus aureus Detected(A) 11/03/2024 6:06 PM [facility] Staphylococcus epidermidis Not Detected 11/03/2024 6:06 PM [facility] Staphylococcus lugdunensis Not Detected 11/03/2024 6:06 PM [facility] Streptococcus Not Detected 6:06 PM [facility] Streptococcus agalactiae Not Detected 11/03/2024 6:06 PM [facility] Streptococcus pneumoniae Not Detected 11/03/2024 6:06 PM [facility] Streptococcus pyogenes Not Detected 11/03/2024 6:06 PM [facility] Acinetobacter calcoaceticus-bauma nnii complex Not Detected 11/03/2024 6:06 PM [facility] Bacteroides fragilis Not Detected 11/03/2024 6:06 PM [facility] Enterobacterales Not Detected 2024 6:06 PM [facility] Enterobacter cloacae complex Not Detected 11/03/2024 6:06 PM [facility] Escherichia coli Not Detected 2024 6:06 PM [facility] Klebsiella aerogenes Not Detected 11/03/2024 6:06 PM [facility] Klebsiella oxytoca Not Detected 01/2025 6:06 PM [facility] Klebsiella pneumoniae group Not Detected 11/03/2024 6:06 PM [facility] Proteus Not Detected 11/03/2024 6:06 PM [facility] Salmonella Not Detected 11/03/2024 6:06 PM [facility] Serratia marcescens Not Detected 01/2025 6:06 PM [facility] Haemophilus influenza Not Detected 11/03/2024 6:06 PM [facility] Neisseria meningitidis Not Detected 11/03/2024 6:06 PM [facility] Pseudomonas aeruginosa Not Detected 11/03/2024 6:06 PM [facility] Stenotrophomonas maltophilia Not Detected 11/03/2024 6:06 PM [facility] Fernanda albicans Not Detected 2024 6:06 PM [facility] Fernanda auris Not Detected 6:06 PM [facility] Fernanda glabrata Not Detected 2024 6:06 PM [facility] Fernanda krusei Not Detected 11/03/19 6:06 PM [facility] Fernanda parapsilosis Not Detected 11/03/2024 6:06 PM [facility] Cryptococcus neoformans/gattii Not Detected 11/03/2024 6:06 PM [facility] PCR ID Comment Antimicrobial resistance can occur via multiple mechanisms. A Not Detected result for antimicrobial resistance gene(s) does not indicate antimicrobial susceptibility. Subculturing is required for species identification and susceptibility testing of isolates. 11/03/2024 6:06 PM [facility] 11/02/2024 8:00 PM EST 11/02/2024 8:29 PM EST Kenzie PATTON MICROBIOLOGY - GENE RAL ORDERABLES [facility] [address] * (ABNORMAL) Erythrocyte Sedimentation Rate (ESR) (11/02/2024 8:00 PM EST) Erythrocyte Sediment Rate (ESR) 79(H) <20 MM/HR 11/02/2024 8:51 PM [facility] Blood specimen / Unknown 11/02/2024 8:00 PM EST 11/02/2024 8:22 PM EST Kenzie PATTON [place] [address], [place] [address] * (ABNORMAL) C-REACTIVE PROTEIN (11/02/2024 8:00 PM EST) C-Reactive Protein 29.62(H) 0 - 0.49 mg/dL 11/03/2024 12:04 AM [facility] Plasma/Serum 11/02/2024 8:00 PM EST 11/02/2024 8:22 PM EST Kenzie PATTON [place] [address], [address] [place] [address] * (ABNORMAL) BLOOD CULTURE Peripheral (11/02/2024 8:00 PM EST) Gram stain suggestive of Gram positive cocci 11/03/2024 3:55 PM [facility] Culture Methicillin Resistant Staph aureus (MRSA) Aerobic and Anaerobic bottle positive. Complete identification and susceptibility of the same isolate, if appropriate, performed on only one blood culture collection per day. (A) 11/06/2024 12:15 PM [facility] Culture Enterococcus faecalis Aerobic and Anaerobic bottle positive. Complete identification and susceptibility of the same isolate, if appropriate, performed on only one blood culture collection per day. (A) 11/06/2024 12:15 PM [facility] Microbiology Peripheral blood specimen / Unknown 11/02/2024 8:00 PM EST 11/02/2024 8:28 PM EST Kenzie PATTON LAB AMB MICRO ORDER JOSE [facility] [address] * (ABNORMAL) BLOOD CULTURE Peripheral (11/02/2024 8:00 PM EST) Gram stain suggestive of Gram positive cocci 11/03/2024 3:50 PM [facility] Culture Methicillin Resistant Staph aureus (MRSA) Aerobic and Anaerobic bottle positive. (A) 11/05/2024 1:52 PM [facility] Culture Enterococcus faecalis Aerobic and Anaerobic bottle positive. (A) 11/05/2024 1:52 PM [facility] Culture Enterococcus faecium Anaerobic bottle positive. (A) 11/05/2024 1:52 PM [facility] Microbiology Peripheral blood specimen [...] AMB MICRO ORDER JOSE Performing Organization Address City/[facility]/ZIP Co de Phone Number [facility] [address] * Vitamin D, 25-Hydroxy (11/02/2024 8:00 PM EST) Vitamin D, 25-Hydroxy 50 30 - 100 ng/mL 11/02/2024 9:10 PM EST [facility] Blood (Plasma/Serum) 11/02/2024 8:00 PM EST 11/02/2024 8:23 PM EST Kenzie PATTON LAB BLOOD ORDERABLE S Performing Organization Address [facility] [place] [address], [place] [address] * (ABNORMAL) TRANSFERRIN (11/02/2024 8:00 PM EST) Transferrin 178(L) 200 - 360 mg/dL 11/03/2024 12:04 AM EST [facility] Blood (Plasma/Serum) 11/02/2024 8:00 PM EST 11/02/2024 8:22 PM EST Kenzie PATTON LAB BLOOD ORDERABLE S Performing Organization Address [facility] [place] [address], [place] [address] * (ABNORMAL) Prealbumin (11/02/2024 8:00 PM EST) Prealbumin 7(L) 20 - 40 mg/dL 11/03/2024 12:04 AM [facility] Blood (Plasma/Serum) 11/02/2024 8:00 PM EST 11/02/2024 8:22 PM EST Kenzie Vazquez [facility] [place] [address], [place] [address] * (ABNORMAL) Albumin (11/02/2024 8:00 PM EST) Albumin 3.2(L) 3.4 - 4.8 g/dL 11/03/2024 12:04 AM [facility] Blood (Plasma/Serum) 11/02/2024 8:00 PM EST 11/02/2024 8:22 PM EST Kenzie Chandlersadeshyla [facility] LAB BLOOD ORDERABLE S Performing Organization Address City/[facility]/[place] [address], [place] [address] * (ABNORMAL) Protime-INR (Routine) (11/02/2024 8:00 PM EST) Anticoagulant APIXABAN (ELIQUIS) 11/02/2024 6:26 PM EST Prothrombin Time (PT) 14.7(H) 10.0 - 13.5 seconds 11/02/2024 9:05 PM [facility] INR 1.3 11/02/2024 9:05 PM [facility] Comment:INR Therapeutic Rang es: Standard dose anticoagulant 2.0 to 3.0, High dose anticoagulant 2.5-3.5. Blood Plasma specimen / Unknown 11/02/2024 8:00 PM EST 11/02/2024 8:22 PM EST Kenzie Chandlersadeshyla [facility] [place] [address], [place] [address] * (ABNORMAL) Basic Metabolic Panel (STAT) (11/02/2024 8:00 PM EST) Glucose 171(H) 65 - 99 mg/dL 11/03/2024 12:04 AM [facility] Comment:Fasting: <100 mg/dL, Non-Fasting: <200 mg/dL (ADA 2004) Blood Urea Nitrogen (BUN) 41(H) 8 - 21 mg/dL 11/03/2024 12:04 AM [facility] Creatinine 2.0(H) 0.5 - 1.3 mg/dL 11/03/2024 12:04 AM [facility] eGFR 37(L) >59 11/03/2024 12:04 AM [facility] Comment:CKD-EPI (2020) in mL /min/1.73 sq meters. Sodium 130(L) 136 - 145 mmol/L 11/03/2024 12:04 AM [facility] Potassium 4.0 3.4 - 5.3 mmol/L 11/03/2024 12:04 AM [facility] Chloride 92(L) 98 - 107 mmol/L 11/03/2024 12:04 AM [facility] CO2 19(L) 22 - 33 mmol/L 11/03/2024 12:04 AM [facility] Anion Gap 19(H) 7 - 17 11/03/2024 12:04 AM [facility] Calcium 8.5(L) 8.7 - 10.5 mg/dL 11/03/2024 12:04 AM [facility] BUN/Creatinine Ratio 21 10.0 - 25.0 Ratio 11/03/2024 12:04 AM [facility] Blood (Plasma/Serum) 11/02/2024 8:00 PM EST 11/02/2024 8:22 PM EST Kenzie PATTON LAB BLOOD ORDERABLE S [address] [address], [place] [address] * (ABNORMAL) Complete Blood Count WITH Differential - STAT (11/02/2024 8:00 PM [facility]) White Blood Cell Count 14.3(H) 4.0 - 11.0 Thou/uL 11/02/2024 8:32 PM [facility] Platelet Count 395 150 - 450 Thou/uL 11/02/2024 8:32 PM [facility] Hemoglobin 9.3(L) 13.0 - 17.7 g/dL 11/02/2024 8:32 PM [facility] Hematocrit 29.3(L) 39.0 - 54.0 % 11/02/2024 8:32 PM [facility] Red Blood Cell Count 3.20(L) 4.50 - 6.20 Mil/uL 11/02/2024 8:32 PM [facility] MCV 92 80 - 100 fL 11/02/2024 8:32 PM [facility] MCH 29.1 27.0 - 31.0 pg 11/02/2024 8:32 PM [facility] MCHC 31.7 30.0 - 36.0 g/dL 11/02/2024 8:32 PM [facility] RDW 16.1(H) 11.5 - 14.5 % 11/02/2024 8:32 PM [facility] MPV 9.5 7.5 - 12.5 fL 11/02/2024 8:32 PM [facility] Neutrophils Auto 81.9 % 11/02/19 8:32 PM [facility] Immature Granulocytes 0.6 % 11/02/2024 8:32 PM [facility] Lymphocytes Auto 4.8 % 11/02/19 8:32 PM [facility] Monocytes Auto 12.2 % 11/02/2024 8:32 PM [facility] Eosinophils Auto 0.1 % 11/02/19 8:32 PM [facility] Basophils Auto 0.4 % 11/02/2024 8:32 PM [facility] Abs Neutrophils Auto 11.67(H) 2.00 - 7.50 Thou/uL 11/02/2024 8:32 PM [facility] Abs Immature Granulocytes 0.08 0.00 - 0.10 Thou/uL 11/02/2024 8:32 PM [facility] Abs Lymphocytes Auto 0.69(L) 1.50 - 4.50 Thou/uL 11/02/2024 8:32 PM [facility] Abs Monocytes Auto 1.74(H) 0.20 - 1.50 Thou/uL 11/02/2024 8:32 PM [facility] Abs Eosinophils Auto 0.02 0.00 - 0.70 Thou/uL 11/02/2024 8:32 PM [facility] Abs Basophils Auto 0.05 0.00 - 0.20 Thou/uL 11/02/2024 8:32 PM [facility] Blood Blood specimen / Unknown 11/02/2024 8:00 PM EST 11/02/2024 8:22 PM EST Kenzie PATTON LAB BLOOD ORDERABLE S Performing Organization Address City/State/[facility] [place] [address], [place] [address] * Type and Screen (11/02/2024 7:56 PM EST) ABO/Rh A POSITIVE 11/02/2024 10:22 PM [facility] Antibody Screen NEGATIVE 11/02/2024 10:22 PM [facility] Specimen Expiration 11/05/2024 11/02/2024 10:22 PM [facility] Unit Number [id number] 11/04/2024 6:58 AM [facility] Blood Component Type LEUKOREDUCED RED CELLS 11/04/2024 6:58 AM [facility] Unit Division 00 11/04/2024 6:58 AM [facility] Unit Status REL FROM ALLOC 9:33 PM [facility] Transfusion Status OK TO TRANSFUSE 11/04/2024 6:58 AM [facility] Crossmatch Result Electronically Compatible 11/04/2024 6:58 AM [facility] Unit Number [id number] 11/04/2024 6:58 AM [facility] Blood Component Type LEUKOREDUCED RED CELLS 11/04/2024 6:58 AM [facility] Unit Division 00 11/04/2024 6:58 AM [facility] Unit Status REL FROM ALLOC 9:33 PM EST [facility] Transfusion Status OK TO TRANSFUSE 11/04/2024 6:58 AM EST [facility] Crossmatch Result Electronically Compatible 11/04/2024 6:58 AM EST [facility] Blood Blood specimen / Unknown 11/02/2024 7:56 PM EST 11/02/2024 8:51 PM EST Comment:Blood Kenzie PATTON BLOOD BANK TEST ORD ERABLES HOSPITAL LAB See Below [facility] [address] [place] [address] * (ABNORMAL) POCT Glucose, Fingerstick (11/02/2024 6:48 [...] endocarditis Mitral valve regurgitation Mitral valve disorders Pacemaker infection, subsequent encounter Endocarditis Endocarditis, valve unspecified, unspecified cause documented in this encounter Admitting Diagnoses Diagnosis Acute osteomyelitis of left calcaneus (HCC) documented in this encounter Administered Medications Inactive Administered Medications - up to 1 most recent administrations Medication Order MAR Action Action Date Dose Rate Site sodium chloride 0.9% (NS) infusion Continuous PRN, Starting on Fri11/17/24 at 1600, Intra-Procedure (Cath) New Bag 11/17/2024 4:00 PM EST 120 mL/hr 120 mL/hr amiODARONE (PACERONE) tablet 200 mg 200 mg, [...] Given 11/25/2024 9:34 AM EST 2 mg bupivacaine preservative free (MARCAINE) 0.5 % injection As needed, Starting on Fri11/17/24 at 1503, Intra-Procedure (Cath) Given 11/17/2024 3:03 PM EST 30 mL Left Chest buPROPion (WELLBUTRIN SR) 12 hr tablet 150 [...] dry eyes, Starting on Fri11/17/24 at 1636 ceFAZolin (ANCEF) 1 g in sodium chloride irrigation (NS) 0.9 % 500 mL irrigation As needed, Starting on Fri11/17/24 at 1549, Intra-Procedure (Cath) Given 11/17/2024 3:49 PM EST 500 mL Left Chest cefTRIAXone (ROCEPHIN) 2 g in sodium chloride-MBP (NS) 100 mL IVPB-MBP 2 g, Intravenous, at 200 mL/hr, Every 24 hours, First dose on Fri11/18/24 at 1130, All antimicrobials used at [facility] require an indication. Please complete the following [...] last modification) on Lennie 11/18/24 at 0900 Given 11/25/2024 9:33 AM EST 10 Units Left Arm insulin lispro (HumaLOG/ADMELOG) 100 units/mL injection 1-6 Units 1-6 Units, Subcutaneous, 3 times daily with meals, First dose on 11/15/24 at 1200, DO NOT HOLD IF NPO [...] meals, First dose (after last modification) on 11/15/24 at 1200, HOLD IF NPO Given 11/25/2024 [...] 11/07/2024 10:25 AM EST 3 mL lidocaine preservative free (XYLOCAINE-MPF) 2 % injection As needed, Starting on Fri11/17/24 at 1503, Intra-Procedure (Cath) Given 11/17/2024 3:03 PM EST 20 mL Left Chest melatonin tablet 3 mg 3 mg, Oral, Nightly PRN, insomnia, Starting on Tu11/02/24 at 1828 Given 11/19/2024 10:22 PM EST [...] Mitesh Caldwell RN)1700 (Not Given - Provider: Mtiesh Caldwell RN - Reason: Patient/family refused) cefTRIAXone (ROCEPHIN) 2 g in sodium chloride-MBP (NS) 100 mL IVPB-MBP 2 g, Intravenous, at 200 mL/hr, Every 24 hours, First dose on Fri11/18/24 at 1130, All antimicrobials used at [facility] require an indication. Please complete the following [...] Reason: Patient/family refused)1237 (Given - Provider: Mitesh Caldwell, JOSUE)1800 (Not Given - Provider: Mitesh Caldwell RN [...] Iqbal RN) 0257 (Given - Provider: Marisel Wray RN)0816 [...] 340, administer 6 units AND notify provider 07 (Not Given - Provider: Nelson Iqbal RN [...] RN)1729 (Given - Provider: Nelson Iqbal RN) 0817 [...] Wray RN) 0814 (Given - Provider: Mitesh Caldwell RN)210 (Given - Provider: Agnieszka Torrez, JOSUE) 0936 (Given - Provider: Mitesh Caldwell RN) [...] documented as of this encounter Care Teams Netbackup Admin Relationship Specialty Start Date End Date Lee Fabian MD [address] [place] [address] PCP - General Internal Medicine 09/02/24 Vitaliy Fields MD [address] [place] [address] Cardiovascular Disease 09/02/24 Dallas Camejo MD [address] [place] [address] Surgery, Orthopedic 09/02/24 Rolando Lopez MD [address] Transplant - [address] [place] [address] Physician Nephrology 09/02/24 Cesar Fair MD [address] [address] Surgery, Cardiac 11/08/24 documented as of this encounter
--- OUTSIDE RECORDS SUMMARY | 2024-12-02 10:42 | XMS_ITS | Encounter Summary ---
Author Organization [facility] Address [address] [place] [address] Care Team Providers Care Distillery Laborer Name Role Phone Lee Fabian MD Primary Care Provider [phone] Reason for Visit * Reason Onset Date Comments Faxed Order 11/05/2024 Driss KEITAA (Tra nsfer Summary) Encounter Details Date Type Department Care Team (Late st Contact Info) Description 11/05/2024 [facility] [address] [place] [phone] Lee Fabian MD [address] [place] [phone] Faxed Order (Driss KEITAA (Transfer Summary)) Social History Tobacco Use Types Packs/Day Years [...] Notes * Sri Nieves MA - 11/09/2024 1:26 PM EST SIGNED AND FAXED * Nani Dickerson - 11/05/2024 3:34 PM EST Orders from [facility] placed in Lee Fabian MD bin. Please complete and fax back to [phone]. Thank you. documented in this encounter Plan of Treatment Upcoming Encounters Date Type Department Care Team (Late st Contact Info) Description 12/06/2024 10:30 AM EDT Office Visit Internal Medicine - [address] [address] Lee Fabian MD [address] [place] [address] documented as of this encounter Goals Goal [...] documented as of this encounter Care Teams Distillery Laborer Relationship Specialty Start Date End Date Lee Fabian MD [address] [place] [address] PCP - General Internal Medicine 08/03/24 documented as of this encounter
--- OUTSIDE RECORDS SUMMARY | 2024-12-02 10:42 | XMS_ITS | Encounter Summary ---
Author Organization [facility] Address [address] [place] [address] Care Team Providers Care Pipelaying Fitter Name Role Phone Lee Fabian MD Primary Care Provider [phone] Reason for Visit * Reason Onset Date Comments Faxed Order 2024 Driss BLACKMAN Encounter Details Date Type Department Care Team (Late st Contact Info) Description 2024 Telephone Internal Medicine - [address] [phone] Lee Fabian MD [address] [place] [address] Faxed Order (Driss BLACKMAN ) Social History [...] Progress Notes * Isabela Flood MA - 12/01/2024 9:37 AM EST faxed * Nani Dickerson - 2024 3:53 PM EST Orders from [facility] placed in Lee Fabian MD bin. Please complete and fax back to [phone]. Thank you. documented in this encounter Plan of Treatment Upcoming Encounters Date Type Department Care Team (Late st Contact Info) Description 12/06/2024 10:30 AM EDT Office Visit Internal Medicine - [address] [phone] Lee Fabian MD [address] [place] [address] documented as of this encounter Goals Goal [...] documented as of this encounter Care Teams Pipelaying Fitter Relationship Specialty Start Date End Date Lee Fabian MD [address] [place] [address] PCP - General Internal Medicine 08/03/24 documented as of this encounter
--- OUTSIDE RECORDS SUMMARY | 2024-12-02 10:42 | XMS_ITS | Encounter Summary ---
Author Organization [facility] Address [address] [place] [address] Care Team Providers Care Leather Seasoner Name Role Phone Lee Fabian MD Primary Care Provider Vitaliy Fields MD Unavailable [phone] Dallas Camejo MD Unavailable Rolando Lopez MD Unavailable Cesar Fair MD Unavailable Daisy Her PT Unavailable [phone] Reason for Referral * Cardiovascular Test (Routine) - Pending Review Specialty Diagnoses / Procedures Referred By Contac t Referred To Contact Diagnoses Complete AV block (HCC) Presence of permanent cardiac pacemaker Bacteremia Procedures Cardiac Implantable Electronic Dev Eval Gretel Hinds, [facility] [address] [address] Referral ID Status Reason Start Date Expiration Date V isits Requested Visits Authorized [id number] Pending Review 11/17/2024 11/18/2025 1 1 Encounter Details Date Type Department Care Team (Late st Contact Info) Description 11/17/2024 Orders Only [facility] Heart & Vascular [place] - Electrophysiology [address] [place] [phone] Gretel Hinds, MEDICAL TRANSCRIPTION RADIOLOGY [address] [address] Complete AV block (HCC) (Primary Dx); Presence of permanent cardiac pacemaker; Bacteremia Social History Tobacco Use Types Packs/Day Years Used Date Smoking Tobacco: Former Cigarettes 1 29.2 1 977 - 2003 Smokeless Tobacco: Never Alcohol Use Standard Drinks/Week Comments Yes 21 (1 standard drink = 0.6 oz pu re alcohol) [facility] Utilities Answer Date Recorded In the past 12 months has th e [employer], gas, oil, or water company threatened to [...] time in the past [address] [facility], were you homeless or living in [...] Info) Description 12/07/2024 1:30 PM EDT Appointment [facility] Heart & Vascular [place] - Electrophysiology [address] [place] [phone] Gretel Hinds, MEDICAL TRANSCRIPTION RADIOLOGY [address] [address] 12/14/2024 2:00 PM EDT [facility] Visit [facility] [address] [address] Dallas Camejo MD [address] [place] [address] [phone] 12/16/2024 8:30 AM EDT Office Visit [facility] Infectious Disease [address] [place] [phone] Ena Mtz MD [address] [place] [address] Scheduled Orders Name Type Priority Associated Diagnoses Orde r Schedule Cardiac Implantable Electronic Dev Eval Cardiac Services Routine Complete AV block (HCC) Presence of permanent cardiac pacemaker Bacteremia Expected: 11/17/2024, Expires: 11/17/2025 documented as of this encounter Visit Diagnoses Diagnosis Complete AV block (HCC)- Primary Atrioventricular block, complete Presence of permanent cardiac pacemaker Bacteremia documented in this encounter 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/10/24 09/16/2024 09/16/2024 11/24/2024 3:08 P Roxanna ANDUJAR documented as of this encounter Care Teams Leather Seasoner Relationship Specialty Start Date End Date Lee Fabian MD [address] [place] [address] PCP - General Internal Medicine 09/02/24 Vitaliy Fields MD [address] [place] [address] Cardiovascular Disease 09/02/24 Dallas Camejo MD [address] [place] [address] Surgery, Orthopedic 09/02/24 Rolando Lopez MD [address] [place] [address] Transplant - [address] [place] [address] Physician Nephrology 09/02/24 Cesar Fair MD [address] [phone] Surgery, Cardiac 11/08/24 Daisy Her, PT [address] [phone] Bottling Line Attendant[facility] Hand Medicine [facility] 11/18/24 documented as of this encounter
--- OUTSIDE RECORDS SUMMARY | 2024-12-02 10:42 | XMS_ITS | Encounter Summary ---
Author Organization [facility] Address [address] [place] [address] Care Team Providers Care Machine Design Engineer Name Role Phone Lee Fabian MD Primary Care Provider [phone] Reason for Visit * Reason Comments Home Health Cert Encounter Details Date Type Department Care Team (Late st Contact Info) Description 11/11/2024 Billing Patient Not Present [facility] [address] [place] [phone] Lee Fabian MD [address] [place] [phone] Encounter for change or removal of surgical wound dressing (Primary Dx); Encounter for surgical aftercare following surgery on the skin and subcutaneous tissue; Type 2 diabetes mellitus with other specified complication, unspecified whether termite helper insulin use (CMS/[facility]); Other acute osteomyelitis, left ankle and foot ([facility]); Type 2 diabetes mellitus with diabetic peripheral angiopathy with gangrene, unspecified whether termite helper insulin use (CMS/[facility]); 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 (CMS/[facility]); Other specified bacterial agents as the cause of diseases classified elsewhere; Type 2 diabetes mellitus with foot ulcer, unspecified whether shelter insulin use (CMS/HCC); Non-pressure chronic ulcer of right heel and midfoot with fat layer exposed (CMS/HCC); Type 2 diabetes mellitus with diabetic neuropathic arthropathy, unspecified whether termite helper insulin use (CMS/[facility]) Social History Tobacco Use Types Packs/Day Years [...] documented in this encounter Progress Notes * Binta Poole MA - 11/11/2024 2:36 PM EST Start of Care Date: 09/01/24 Date of certification period: 10/31/24-12/29/24 Date of service = signature date 11/09/24 Hospice patient: No Home Care Agency: [facility] Recertification Code [id number] Initial Code G0180 documented in this encounter Plan of Treatment Upcoming Encounters Date Type Department Care Team (Late st Contact Info) Description 12/06/2024 10:30 AM EDT Office Visit Internal Medicine - [address] [phone] Lee Fabian MD [address] [place] [phone] documented as of this encounter Goals Goal [...] as of this encounter Visit Diagnoses Diagnosis Encounter for change or removal of surgical wound dressing- Primary Encounter for surgical aftercare following surgery on the skin and subcutaneous tissue Type 2 diabetes mellitus with other specified complication, unspecified whether shelter insulin use ([facility]) Other acute osteomyelitis, left ankle and foot ([facility]/HCC) Type 2 diabetes mellitus with diabetic peripheral angiopathy with gangrene, unspecified whether shelter insulin use ([facility]) 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 ([facility]) Other specified bacterial agents as the cause of diseases classified elsewhere Type 2 diabetes mellitus with foot ulcer, unspecified whether shelter insulin use ([facility]) Non-pressure chronic ulcer of right heel and midfoot with fat layer exposed ([facility]) Type 2 diabetes mellitus with diabetic neuropathic arthropathy, unspecified whether shelter insulin use ([facility]) documented in this encounter Additional Health Concerns Active Problems Noted Date Diagnosed Date Impaired Tissue 08/10/2024 Education needed on impact of smoking on wound 1 10/10/2023 Education needed related to ulceration/compromised skin integrity. 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
--- OUTSIDE RECORDS SUMMARY | 2024-12-02 10:42 | XMS_ITS | Encounter Summary ---
Author Organization [facility] Address [address] [place] [address] Care Team Providers Care Quiller Machine Fixer Name Role Phone Lee Fabian MD Primary Care Provider Reason for Visit * Reason Onset Date Comments Request For Order(s) 11/12/2024 [facility] Encounter Details Date Type Department Care Team (Late st Contact Info) Description 11/12[facility]2024 [facility] [address] [place] [phone] Lee Fabian MD [address] [place] [phone] Request For Order(s) ([facility] ) Social History Tobacco Use Types Packs/Day [...] documented in this encounter Progress Notes * Eunice De Los Santos MA - 11/15/2024 2:27 PM EST Document signed and faxed * Ramana Chakraborty - 11/12/2024 2:20 PM EST Faxed order received from [facility]. Orders placed in Lee Fabian MD bin for signing, please fax to [phone]. documented in this encounter Plan of Treatment Upcoming Encounters Date Type Department Care Team (Late st Contact Info) Description 12/06/2024 10:30 AM EDT Office Visit Internal Medicine - [address] [phone] Lee Fabian MD [address] [place] [phone] documented as of this encounter Goals Goal [...] documented as of this encounter Care Teams Quiller Machine Fixer Relationship Specialty Start Date End Date Lee Fabian MD [address] [place] [phone] PCP - General Internal Medicine 08/03/24 documented as of this encounter
--- OUTSIDE RECORDS SUMMARY | 2024-12-02 10:43 | XMS_ITS | Encounter Summary ---
Author Organization [facility] Address [address] [place] [address] Care Team Providers Care Quality Improvement Consultant Name Role Phone Lee Fabian MD Primary Care Provider [phone] Reason for Visit * Reason Onset Date Comments Faxed Order 11/04/2024 Encounter Details Date Type Department Care Team (Late st Contact Info) Description 11/04/2024 Telephone [facility] - [facility] [address] [place] [phone] Lee Fabian MD [address] [place] [phone] Faxed Order Social History Tobacco Use Types Packs/Day Years [...] of Assessment Author No 09/19/2024 11:54 PM rEik Rendon RN * Because of a physical, [...] documented in this encounter Progress Notes * Hilda Briceño MA - 11/04/2024 3:52 PM EST Faxed form back. * Nani Dickerson - 11/04/2024 10:17 AM EST Orders from [facility] placed in Lee Fabian MD bin. Please complete and fax back to [phone]. Thank you. documented in this encounter Plan of Treatment Upcoming Encounters Date Type Department Care Team (Late st Contact Info) Description 12/06/2024 10:30 AM EDT Office Visit Internal Medicine - [address] [phone] Lee Fabian MD [address] [place] [phone] documented as of this encounter Goals Goal [...] documented as of this encounter Care Teams Quality Improvement Consultant Relationship Specialty Start Date End Date Lee Fabian MD [address] [place] [phone] PCP - General Internal Medicine 08/03/24 documented as of this encounter
--- OUTSIDE RECORDS SUMMARY | 2024-12-02 10:43 | XMS_ITS | Clinical Summary ---
Author Organization [facility] Address [address] [place] [address] Care Team Providers Care Manager Express Name Role Phone Lee Fabian MD Primary Care Provider Vitaliy Fields MD Unavailable Dallas Cmaejo MD Unavailable [phone] Rolando Lopez MD Unavailable Cesar Fair MD Unavailable [phone] Daisy Her PT Unavailable Allergies Active Allergy Reactions Criticality Noted Date Comments Lisinopril Other (See Comments) 09/03/2024 Dehydration Medications Medication Sig Dispensed Refills Start Date End Date Status bumetanide (BUMEX) 2 MG tablet Take 1 tablet (2 mg total) by mouth daily. Active Jardiance 25 MG tablet Take 1 tablet (25 mg total) by mouth daily. 05/06/20 24 Active donepezil (ARICEPT) 10 MG tablet Take 1 tablet (10 mg total) by mouth every morning. 10/20/19 24 Active glipiZIDE (GLUCOTROL) 2.5 mg tablet Take 1 tablet (2.5 mg total) by mouth 2 times a day. 03/10/20 24 Active metoPROLOL TARTRATE (LOPRESSOR) 50 MG tablet Take 1 tablet (50 mg total) by mouth 2 times a day. Active Continuous Glucose Sensor (FreeStyle Wallace 3 Sensor) [facility] [place] INJECT 1 DEVICE INTO THE SKIN EVERY 14 DAYS 06/30/20 Active melatonin 10 MG Tab tablet Take 5 mg by mouth nightly. Active nicotine (NICODERM CQ) 7 MG/24HR patch Place 1 patch on the skin daily. 05/24/20 24 Active PANTOprazole (PROTONIX) 40 MG EC tablet Take 1 tablet (40 mg total) by mouth daily. 09/16/20 23 Active cyanocobalamin 2500 MCG Tab Take 1 tablet (2,500 mcg total) by mouth daily. Active Cholecalciferol (Vitamin D-3) 125 MCG (5000 UT) Tab Take 2 tablets by mouth every morning. Active metFORMIN (GLUCOPHAGE) 1000 MG tablet Take 0.5 tablets (500 mg total) by mouth every morning with breakfast. 07/31/20 24 Active metFORMIN (GLUCOPHAGE) 500 MG tablet Take 1 tablet (500 mg total) by mouth every morning with breakfast. Active ascorbic acid (VITAMIN C) 500 MG tabletIndications: Other chronic osteomyelitis of foot, unspecified laterality (HCC) Take 1 tablet (500 mg total) by mouth daily. 14 tablet 09/16/20 24 Active senna (SENOKOT) 8.6 MG Tab tabletIndications: Other chronic osteomyelitis of foot, unspecified laterality (HCC) Take 2 tablets by mouth daily as needed for constipation. 14 tablet 09/16/20 24 Active polyethylene glycol (miraLAx) 17 g packetIndications: Other chronic osteomyelitis of foot, unspecified laterality (HCC) Take 1 packet (17 g total) by mouth daily. 10 packet 09/16/20 24 Active acetaminophen (TYLENOL) 325 MG tabletIndications: Other chronic osteomyelitis of foot, unspecified laterality (HCC) Take 3 tablets (975 mg total) by mouth 4 times daily (every 6 hours) as needed for mild pain. 168 tablet 09/16/20 24 Active methocarbamol (ROBAXIN) 500 MG tabletIndications: Other chronic osteomyelitis of foot, unspecified laterality (HCC) Take 1 tablet (500 mg total) by mouth 4 (four) times a day as needed for muscle spasms. 20 tablet 09/16/20 24 Active oxyCODONE (ROXICODONE) 5 MG immediate release tabletIndications: Other chronic osteomyelitis of foot, unspecified laterality (HCC) Take 1-2 tablets (5-10 mg total) by mouth every 4 (four) hours as needed for severe pain. Max Daily Amount: 60 mg 42 tablet 10/05/19 Active cefTRIAXone 2 g in sodium chloride-MBP 0.9% 100 mL IVPBIndications:En docarditis Infuse 2 g into a venous catheter every 24 hours. 11/24/19 Active DAPTOmycin-Sodium Chloride 700-0.9 MG/100ML-% SolutionIndication s:Acute osteomyelitis of left calcaneus (HCC) Infuse 975 mg into a venous catheter daily. 11/24/19 Active erythromycin (ILOTYCIN) ophthalmic ointmentIndication s:Acute bacterial conjunctivitis of right eye Administer 1 application(s) to the right eye 4 (four) times a day. 1 g 11/25/19 Active buPROPion (WELLBUTRIN SR) 150 MG 12 hr tabletIndications: Endocarditis Take 1 tablet (150 mg total) by mouth 2 (two) times a day in the morning and the early evening.. 60 tablet 11/25/19 025 Active aspirin enteric coated (ECOTRIN LOW STRENGTH) 81 MG EC tabletIndications: Endocarditis Take 1 tablet (81 mg total) by mouth daily. 30 tablet 11/25/19 025 Active pregabalin (LYRICA) 100 MG capsuleIndications :Endocarditis Take 1 capsule (100 mg total) by mouth 3 (three) times a day. 90 capsule 11/25/19 025 Active amLODIPine (NORVASC) 5 MG tabletIndications: Endocarditis Take 1 tablet (5 mg total) by mouth daily. 30 tablet 11/25/19 25 025 Active amiODARONE (PACERONE) 200 MG tabletIndications: Endocarditis Take 1 tablet (200 mg total) by mouth daily. 30 tablet 11/25/19 025 Active folic acid (FOLVITE) 1 MG tabletIndications: Endocarditis Take 1 tablet (1 mg total) by mouth daily. 30 tablet 11/25/19 025 Active methocarbamol (ROBAXIN) 500 MG tabletIndications: Below-knee amputation of left lower extremity, initial encounter ([facility]) Take 1 tablet (500 mg total) by mouth 4 (four) times a day. 28 tablet 12/01/19 25 Active HYDROmorphone (DILAUDID) 2 MG tabletIndications: Below-knee amputation of left lower extremity, initial encounter ([facility]) Take 1 tablet (2 mg total) by mouth 4 times daily (every 6 hours) as needed for severe pain or moderate pain. Max Daily Amount: 8 mg 28 tablet 12/01/19 Active SUPPLY DME MISCIndications:Be low-knee amputation of left lower extremity, initial encounter ([facility]) BELOW KNEE PROSTHESIS S/P LEFT BKA 11/05/24 1 each 12/02/19 Active amiODARONE (PACERONE) 200 MG tablet Take 1 tablet (200 mg total) by mouth 2 times a day. 08/31/20 24 025 Discontinued(St op Taking at Discharge) amoxicillin (AMOXIL) 500 MG capsule Take 1 capsule (500 mg total) by mouth 3 (three) times a day. For 1 week for DENTAL procedures 08/31/20 24 025 Discontinued(St op Taking at Discharge) pregabalin (LYRICA) 150 MG capsule Take 1 capsule (150 mg total) by mouth 2 times a day. 10/20/19 24 025 Discontinued(St op Taking at Discharge) pravastatin (PRAVACHOL) 20 MG tablet Take 1 tablet (20 mg total) by mouth daily. 07/27/20 24 025 Discontinued(St op Taking at Discharge) apixaban (ELIQUIS) 5 MG tablet Take 1 tablet (5 mg total) by mouth 2 times a day. 025 Discontinued(St op Taking at Discharge) amoxicillin (AMOXIL) 500 MG tablet Take 2 tablets (1,000 mg total) by mouth 2 (two) times a day. For 14 days 025 Discontinued(St op Taking at Discharge) ciprofloxacin (CIPRO) 500 MG tablet Take 1 tablet (500 mg total) by mouth 2 (two) times a day. 025 Discontinued(St op Taking at Discharge) Magnesium 250 MG Tab Take 250 mg by mouth every morning. 025 Discontinued(St op Taking at Discharge) amLODIPine (NORVASC) 10 MG tablet Take 1 tablet (10 mg total) by mouth. 07/31/20 24 025 Discontinued(St op Taking at Discharge) sulfamethoxazole-t rimethoprim (BACTRIM DS,SEPTRA DS) 800-160 MG per tabletIndications: Acute osteomyelitis of left calcaneus (HCC) Take 1 tablet by mouth 2 (two) times a day. 28 tablet 10/05/19 025 Discontinued(St op Taking at Discharge) amLODIPine (NORVASC) 5 MG tabletIndications: Endocarditis Take 1 tablet (5 mg total) by mouth daily. 11/24/19 25 025 Discontinued aspirin enteric coated (ECOTRIN LOW STRENGTH) 81 MG EC tabletIndications: Endocarditis Take 1 tablet (81 mg total) by mouth daily. 11/24/19 025 Discontinued bisacodyl (DULCOLAX) 10 MG suppositoryIndicat ions:Endocarditis Insert 1 suppository (10 mg total) into the rectum daily as needed for constipation (Use Day 2 as needed). 11/23/19 025 Discontinued(St op Taking at Discharge) buPROPion (WELLBUTRIN SR) 150 MG 12 hr tabletIndications: Endocarditis Take 1 tablet (150 mg total) by mouth 2 (two) times a day in the morning and the early evening.. 11/23/19 025 Discontinued calcium carbonate (TUMS) 500 MG chewable tabletIndications: Endocarditis Chew 2 tablets (1,000 mg total) 2 times daily (every 12 hours) as needed for indigestion or heartburn. 11/23/19 025 Discontinued(St op Taking at Discharge) calcium citrate (CALCITRATE) 950 (200 Ca) MG tabletIndications: Endocarditis Take 1 tablet (950 mg total) by mouth 2 (two) times a day with meals. 11/23/19 25 025 Discontinued(St op Taking at Discharge) carboxymethylcellu lose (REFRESH PLUS) 0.5 % SolutionIndication s:Endocarditis Administer 2 drops to both eyes every 2 (two) hours as needed for dry eyes. 11/23/19 025 Discontinued(St op Taking at Discharge) sodium chloride 0.9 % SOLN 50 mL with DAPTOmycin 500 MG SOLR 975 mgIndications:Endo carditis Infuse 975 mg (10 mg/kg x 97.3 kg (Previous weight)) into a venous catheter every 24 hours. 11/23/19 025 Discontinued(St op Taking at Discharge) insulin glargine (LANtus/SEMGLEE) 100 units/mL injectionIndicatio ns:Endocarditis Inject 0.1 mL (10 Units total) under the skin daily. 11/24/19 025 Discontinued(St op Taking at Discharge) insulin lispro (HumaLOG/ADMELOG) 100 units/mL injectionIndicatio ns:Endocarditis Inject 0.03 mL (3 Units total) under the skin 3 (three) times a day with meals. 11/23/19 025 Discontinued(St op Taking at Discharge) insulin lispro (HumaLOG/ADMELOG) 100 units/mL injectionIndicatio ns:Endocarditis Inject 0.01-0.06 mL (1-6 Units total) under the skin 3 (three) times a day with meals. 11/23/19 025 Discontinued(St op Taking at Discharge) multivitamin with minerals Tab tabletIndications: Endocarditis Take 1 tablet by mouth daily. 11/24/19 025 Discontinued(St op Taking at Discharge) senna-docusate (SENNA-S) 8.6-50 MGIndications:Endo carditis Take 2 tablets by mouth 2 (two) times a day. 11/23/19 025 Discontinued(St op Taking at Discharge) thiamine mononitrate (VITAMIN B-1) 100 MG tabletIndications: Endocarditis Take 2 tablets (200 mg total) by mouth daily. 11/24/19 025 Discontinued(St op Taking at Discharge) folic acid (FOLVITE) 1 MG tabletIndications: Endocarditis Take 1 tablet (1 mg total) by mouth daily. 11/24/19 025 Discontinued amiODARONE (PACERONE) 200 MG tabletIndications: Endocarditis Take 1 tablet (200 mg total) by mouth daily. 11/24/19 025 Discontinued pregabalin (LYRICA) 100 MG capsuleIndications :Endocarditis Take 1 capsule (100 mg total) by mouth 3 (three) times a day. 11/23/1927/2 025 Discontinued erythromycin (ILOTYCIN) ophthalmic ointmentIndication s:Acute bacterial conjunctivitis of right eye Administer 1 application(s) to the right eye 4 (four) times a day. 11/24/19 25 025 Discontinued DAPTOmycin-Sodium Chloride 700-0.9 MG/100ML-% SolutionIndication s:Bacteremia Infuse 976 mg into a venous catheter daily. Daptomycin 975 mg IV every 24 hours through December 28, 2024 0 11/24/19 25 025 Discontinued(St op Taking at Discharge) Active Problems Problem Noted Date Diagnosed Date Bacteremia 11/06/2024 Presence of permanent cardiac pacemaker 11/06/19 Mitral valve vegetation 11/06/2024 Mitral valve regurgitation 11/06/2024 Acute osteomyelitis of left calcaneus 11/02/2024 Pacemaker infection 11/02/2024 Endocarditis 11/02/2024 CKD (chronic kidney disease) 09/16/2024 Osteomyelitis 09/10/2024 Acute osteomyelitis of right ankle or foot 09/03 Assessment & Plan (09/03/2024 9:31 AM EST): Plan for ANKLE PARTIAL CALCANEAL EXOSTECTOMY - Left & APPLICATION OF WOUND VAC - Left with Dr. Camejo on 09/10/24. Osteomyelitis, infection with MDRO organism ESBL E coli ? Hold pre op antibiotics Chronic diastolic congestive heart failure 04/28 Assessment & Plan (09/03/2024 2:03 PM EST): Patient instructed to hold Bumex the day of surgery. HTN (hypertension) Assessment & Plan (09/03/2024 8:13 AM EST): ? Controlled. Continue amiodarone & metoprolol. Patient instructed to hold Bumex the day of surgery. A-fib Assessment & Plan (09/03/2024 8:13 AM EST): Continue Amiodarone & metoprolol. Eliquis anticoagulant plan as below. CHADSVASC score is . PAD (peripheral artery disease) Assessment & Plan (09/03/2024 8:12 AM EST): ? Vascular MERVIN on CPAP Overview (09/03/2024): BiPap Assessment & Plan (09/03/2024 8:12 AM EST): ? CPAP Diabetes Overview (09/03/2024): TYPE II Assessment & Plan (09/03/2024 8:14 AM EST): Type 2. A1c PENDING. Patient instructed to hold glipizide the day of surgery. Last dose of Jardiance is 09/06/24. Stage 3a chronic kidney disease (CKD) Assessment & Plan (09/03/2024 9:20 AM EST): Creatinine 1.4 GFR 55. Avoid nephrotoxic medications. Follows with Dr. Lopez in [place]. See last note 06/07/24. Hyperlipidemia Assessment & Plan (09/03/2024 9:20 AM EST): Continue pravastatin. Smoker Assessment & Plan (09/03/2024 9:21 AM EST): Smoking? Complete AV block Assessment & Plan (09/03/2024 9:22 AM EST): S/p pacemaker & watchman device. No remote monitoring per last cardiology note. Cardiology appt pending. Atrial flutter Encounters Date Type Department Care Team Description 12/01/2024 [facility] Only [facility] [address] [facility] [address] [place] [address] Dallas Camejo MD Below-knee amputation of left lower extremity, initial encounter (HCC) (Primary Dx) 12/01/2024 Documentation [facility] [address] [phone] Daisy Her PT 11/30/2024 1:15 PM EST [facility] [address] [place] [address] Sheila Childs APRN Below-knee amputation of left lower extremity, initial encounter (HCC) (Primary Dx) 11/23/2024 Telephone [facility] Infectious Disease [address] [place] [address] Nilton Zepeda MA Call Patient 11/19/2024 1:30 PM EST - 11/19/2024 2:30 PM EST Surgery [facility] [address] [place] [address] Devon Vogt DO CVC INSERT (TUNNEL)W/O PORT > 5 YRS 11/19/2024 Telephone [facility] [place] [place] [address] [place] [address] Nilton Zepeda MA Appointment 11/18/[address] [facility] Heart & Vascular [facility] - Electrophysiology Laboratory [address] [place] [address] Lucho Ceron MD 11/17/2024 2:20 PM EST Anesthesia Event [facility] Perioperative Surgical Services [address] [place] [address] Guido Malagon MD Gordon, Jennifer L, PA-C 11/17/2024 1:37 PM EST - 11/17/2024 4:43 PM EST Surgery [facility] Per[facility]operative [facility] Services [address] [place] [address] Rui Pabon MD Extraction lead(s) laser from dual PM system; [id number] 11/17/[address] [facility] Heart Vascular [facility] - Electrophysiology [address] [facility] [address] [place] [address] Gretel Hinds APRN Complete AV block (HCC) (Primary Dx); Presence of permanent cardiac pacemaker; Bacteremia 11/11/2024 2:09 PM EST Anesthesia Event [facility] Heart & Vascular [facility] - Echocardiography Laboratory [address] [place] [address] Hong Nance MD 11/11/2024 Travel 11/05/2024 1:32 PM EST Anesthesia Event [facility] Bone [facility] Joint [address] [address] Juaquin Rueda MD Ritchie, Agatha T, PA-C 11/05/2024 1:15 PM EST Anesthesia Event [facility] Joint [address] [address] Gaston Martinez MD Calitri, Nicholas, MD 11/05/2024 12:52 PM EST - 11/05/2024 3:28 PM EST Surgery [facility] Joint [address] [address] Dallas Camejo MD LEFT BELOW KNEE AMPUTATION 11/04/2024 Travel 11/02/2024 6:10 PM EST - 11/25/2024 7:51 PM EST Hospital Encounter [facility] [address] [place] [phone] Dallas Camejo MD Adekolu, MD Zane Mays, MD Kwasi Smith Kamal, MD Iftikhar, MD Bryn Lyons Gagan, MD Madhusudana, MD Marli Barney, MD Zack Olivia Mahmoud, MD Acute osteomyelitis of left calcaneus (HCC) (Primary Dx); Pacemaker infection, subsequent encounter; Endocarditis; Acute bacterial conjunctivitis of right eye; Bacteremia Discharge Disposition: Home with Health Care Services 11/02/2024 9:15 AM EST [facility] [address] [address] Dallas Camejo MD Acute osteomyelitis of left calcaneus (HCC) (Primary Dx) 11/02/2024 8:55 AM EST Ancillary Procedure [facility] [address] [address] 10/19/2024 10:30 AM EST [facility] [address] [address] Dallas Camejo MD Acute osteomyelitis of left calcaneus (HCC) (Primary Dx) 10/19/2024 10:20 AM EST Ancillary Procedure [facility] [address] [address] 10/19/2024 Scanned Document [facility] [address] [address] Alejandra Eddy 10/19/2024 Scanned Document [facility] [address] [place] [address] Alejandra Eddy 10/05/2024 10:45 AM EST Ancillary Procedure [facility] [address] [address] 10/05/2024 10:15 AM EST [facility] [address] [address] Sheila Childs APRN Pain of foot, unspecified laterality (Primary Dx); Acute osteomyelitis of left calcaneus (HCC); Other chronic osteomyelitis of foot, unspecified laterality (HCC) 09/17/2024 Documentation [facility] [address] [address] Dallas Camejo MD 09/15/2024 11:11 AM EST Anesthesia Event [facility] Perioperative Surgical Services [address] [place] [phone] Susan Lundberg DO Gordon, Donald E, PA-C 09/15/2024 9:30 AM EST - 09/15/2024 11:30 AM EST Surgery [facility] Per[facility] Services [address] [place] [phone] Delbert Mcintosh MD LEFT LOWER EXTREMITY ANGIOGRAM 09/10/2024 10:39 AM EST Anesthesia Event [facility] at [address] [address] Honey Easton MD 09/10/2024 10:00 AM EST - 09/10/2024 12:00 PM EST Surgery [facility] at [address] [place] [address] Dallas Camejo MD ANKLE PARTIAL CALCANECTOMY 09/10/2024 9:16 AM EST Anesthesia Event [facility] at [address] [place] [address] David Kelsey MD 09/10/2024 8:01 AM EST - 09/16/2024 3:11 PM EST Hospital Encounter [facility] [address] [place] [address], [place] [address] Dallas Camejo MD Other chronic osteomyelitis of foot, unspecified laterality (HCC) (Primary Dx) Discharge Disposition: Home with Health Care Services 09/10/2024 Travel 09/03/2024 3:30 PM EST Pre-Admission Testing [facility] [address] [facility] 2nd Floor [address] [place] [address], Gilda Oscar, [place] Preop examination (Primary Dx); Acute osteomyelitis of right ankle or foot (HCC); Primary hypertension; Atrial fibrillation, unspecified type (HCC); PAD (peripheral artery disease) (HCC); Sleep apnea, unspecified type; Type 2 diabetes mellitus with foot ulcer, without long-term current use of insulin (HCC); Stage 3a chronic kidney disease (CKD) (HCC); Hyperlipidemia, unspecified hyperlipidemia type; Smoker; Complete AV block (HCC); Chronic diastolic heart failure (HCC); Bilateral carotid bruits from Last 3 Months Social History Tobacco Use Types Packs/Day Years Used Date Smoking Tobacco: Former Cigarettes 1 29.2 1 977 - 2004 Smokeless Tobacco: Never Tobacco Cessation:Counseling Given: Yes Alcohol Use Standard Drinks/Week Comments Yes 21 (1 standard drink = 0.6 oz pu re alcohol) [facility] Utilities Answer Date Recorded In the past 12 months has [employer], oil, or water [employer] threatened to shut off services in your [...] time in the past 12 m [facility], were you homeless or living in a nursing home (including now)? No 11/03/2024 Sex and Gender Information Value Date Recorded Sex Assigned at Male 09/03/2024 12:21 PM EST Gender Identity Male 09/03/2024 12:21 PM EST Sexual Orientation Heterosexual (straight) 09/10 7:58 AM EST Last Filed Vital Signs Vital Sign Reading [...] Mass Index 27.06 11/09/2024 7:57 AM EST Plan of Treatment Upcoming Encounters Date Type Department Care Team (Late st Contact Info) Description 12/07/2024 1:[address] [facility] Heart & Vascular [facility] [place] - Electrophysiology [address] [place] [phone] Gretel Hinds, TREASURY AGENT [address] [phone] 12/14/2024 2:00 PM EDT [facility] [address] [address] Dallas Camejo MD [address] [place] [address] 12/16/2024 8:30 AM EDT Office Visit [facility] Infectious Disease [address] [place] [address] Ena Mtz MD [address] [place], [place] [phone] Health Maintenance Due Date Last Done Comments Hepatitis C Virus Screening 1960 Foot Exam 1970 Lipid Panel 1970 Ophthalmology Exam 1970 HIV Screening 1973 Microalbumin/Creatinine Ratio Urine 1978 DTaP/Tdap/Td Vaccines (1 - Tdap) 11/30/1979 Pneumococcal Vaccines 50+ (1 of 2 - PCV) 11/30/1979 Colonoscopy 2005 Zoster (Shingles) Vaccine (1 of 2) 2010 RSV Vaccine 60 years and older and Patients (1 - Risk 60-74 years 1-dose series) 2020 COVID-19 Vaccine ( season) 2024 07/08/2023, 08/15/2021, 01/16/2021, Additional history exists Hemoglobin A1C 12/02/2024 09/03/2024 Creatinine with GFR 11/24/2025 11/24/2024, 11/23/2024, 11/22/2024, Additional history exists Influenza Vaccine Completed 06/22/2024, , 07/08/2023, Additional history exists Hepatitis B Vaccines Aged Out No long er eligible based on patient's age to complete this topic Medical Devices Implanted Type Area Glass Driller Device Identifier Shelf Expiration Date Model / Serial / Lot [id number] Pacemaker Cardiac Micra Av2 Ldls Bndl - [id number] Implanted:Qty : 1 on 11/17/2024 by Rui Pabon MD at [facility] Pacemaker Left: Chest [employer] [id number] 02/09/2026 [id number] / [id number] / Explanted Type Area Glass Driller Device Identifier Shelf Expiration Date Model / Serial / Lot 5076-52 Lead Pacing 52cm 6.2fr 2mm 10mm Spc Sm Straight Atr Vntrc- 6 Implanted:09/30 (Quantity not on file) Explanted:Qty: 1 on 11/17/2024 by Rui Pabon MD Lead [employer] 5076-52 / [id number] / 5076-58 Lead Pacing 58cm 6.2fr 2mm 10mm Spc Sm Straight Atr Vntrc- 6 Implanted:09/30 (Quantity not on file) Explanted:Qty: 1 on 11/17/2024 by Rui Pabon MD Lead [employer] 5076-58 / [id number] / [id number] Pacemaker Cardiac Advisa Dr Debbie Chairez 2 Chamber Digital- 016 Implanted:09/30 (Quantity not on file) Explanted:Qty: 1 on 11/17/2024 by Rui Pabon MD Pacemaker [employer] [id number] / [id number] / Procedures Procedure Name Priority Date/Time Associated Diagnosis [...] FINGERSTICK (CHARGE) Routine 11/23/2024 7:34 AM EST C-REACTIVE PROTEIN Routine 11/23/2024 6:43 AM EST ERYTHROCYTE SEDIMENTATION RATE (ESR) Routine 11/23/2024 6:43 AM EST HEPATIC FUNCTION PANEL Routine 11/23/2024 6:43 AM EST CREATINE KINASE (CK) Routine 11/23/2024 6:43 AM EST COMPLETE BLOOD COUNT, WITHOUT DIFFERENTIAL Routine 11/23/2024 6:43 AM EST MAGNESIUM Routine 11/23/2024 6:43 AM EST BASIC METABOLIC [...] FINGERSTICK (CHARGE) Routine 11/22/2024 7:35 AM EST MAGNESIUM Routine 11/22/2024 7:31 AM EST COMPLETE BLOOD COUNT, WITHOUT DIFFERENTIAL Routine 11/22/2024 7:31 AM EST BASIC METABOLIC PANEL Routine 11/22/2024 7:31 AM EST POCT GLUCOSE, FINGERSTICK (CHARGE) Routine 11/21/2024 9:28 PM EST POCT GLUCOSE, FINGERSTICK (CHARGE) Routine 11/21/2024 4:49 PM EST POCT GLUCOSE, FINGERSTICK (CHARGE) Routine 11/21/2024 11:56 AM EST POCT GLUCOSE, FINGERSTICK (CHARGE) Routine 11/21/2024 7:45 AM EST MAGNESIUM Routine 11/21/2024 6:58 AM EST COMPLETE BLOOD COUNT, WITHOUT DIFFERENTIAL Routine 11/21/2024 6:58 AM EST BASIC METABOLIC PANEL Routine 11/21/2024 6:58 AM EST POCT GLUCOSE, FINGERSTICK (CHARGE) Routine 11/20/2024 8:16 PM EST POCT GLUCOSE, FINGERSTICK (CHARGE) Routine 11/20/2024 4:32 PM EST POCT GLUCOSE, FINGERSTICK (CHARGE) Routine 11/20/2024 12:07 PM EST POCT GLUCOSE, FINGERSTICK (CHARGE) Routine 11/20/2024 7:58 AM EST MAGNESIUM Routine 11/20/2024 6:59 AM EST COMPLETE BLOOD COUNT, WITHOUT DIFFERENTIAL Routine 11/20/2024 6:59 AM EST BASIC METABOLIC PANEL Routine 11/20/2024 6:59 AM EST POCT GLUCOSE, FINGERSTICK (CHARGE) Routine 11/19/2024 4:13 PM EST URINALYSIS WITH REFLEX TO MICROSCOPIC Routine 11/19/2024 4:00 PM EST OSMOLALITY, URINE Routine 11/19/2024 4:00 PM EST UREA NITROGEN, URINE, RANDOM Routine 11/19/2024 4:00 PM EST SODIUM, URINE, RANDOM Routine 11/19/2024 4:00 PM EST CREATININE, URINE, [...] AM EST PM SINGLE LEAD EVAL WITH PROGRAM,[id number] Routine 11/18/2024 7:45 AM EST CREATINE KINASE (CK) Routine 11/18/2024 7:15 AM EST COMPLETE BLOOD COUNT, WITHOUT DIFFERENTIAL Routine 11/18/2024 7:15 AM EST MAGNESIUM Routine 11/18/2024 7:15 AM EST BASIC METABOLIC PANEL Routine 11/18/2024 7:15 AM EST XR CHEST 1 VIEW Routine 11/17/2024 5:48 PM EST POCT GLUCOSE, FINGERSTICK (CHARGE) Routine 11/17/2024 5:00 PM EST INSERT/REPLACE LEADLESS PACEMAKER Routine 11/17/2024 4:44 PM EST Pacemaker infection, subsequent encounter EXTRACTION LEAD(S) LASER FROM DUAL PM SYSTEM Routine 11/17/2024 4:44 PM EST Pacemaker infection, subsequent encounter ANES LINE - ARTERIAL Routine 11/17/2024 2:01 PM EST TRANSESOPHAGEAL ECHO-ANESTHESIA Routine 11/17/2024 1:50 PM EST [...] FINGERSTICK (CHARGE) Routine 11/16/2024 7:37 AM EST TYPE AND SCREEN Routine 11/16/2024 7:23 AM EST PHOSPHORUS Routine 11/16/2024 7:23 AM EST MAGNESIUM Routine 11/16/2024 7:23 AM EST BASIC METABOLIC PANEL Routine 11/16/2024 7:23 AM EST COMPLETE BLOOD COUNT, WITHOUT DIFFERENTIAL Routine 11/16/2024 7:23 AM EST POCT GLUCOSE, FINGERSTICK (CHARGE) Routine 11/15/2024 8:14 PM EST POCT GLUCOSE, FINGERSTICK (CHARGE) Routine 11/15/2024 4:10 PM EST POCT GLUCOSE, FINGERSTICK (CHARGE) Routine 11/15/2024 11:09 AM EST PREPARE RBC'S Routine 11/15/2024 10:54 AM EST PHOSPHORUS Routine 11/15/2024 8:08 AM EST MAGNESIUM Routine 11/15/2024 8:08 AM EST BASIC METABOLIC PANEL Routine 11/15/2024 8:08 AM EST COMPLETE BLOOD COUNT, WITHOUT DIFFERENTIAL Routine 11/15/2024 8:08 AM EST PROBNP, N-TERMINAL Routine 11/15/2024 8:08 AM EST POCT GLUCOSE, [...] PROBNP, N-TERMINAL Routine 11/13/2024 7:30 AM EST PHOSPHORUS Routine 11/13/2024 7:30 AM EST MAGNESIUM Routine 11/13/2024 7:30 AM EST COMPLETE BLOOD COUNT, WITHOUT DIFFERENTIAL Routine 11/13/2024 7:30 AM EST BASIC METABOLIC [...] EST PM DUAL LEAD EVAL WITH PROGRAMMING, [id number] Routine 11/12/2024 1:15 PM EST POCT GLUCOSE, FINGERSTICK (CHARGE) Routine 11/12/2024 11:45 AM EST POCT GLUCOSE, FINGERSTICK (CHARGE) Routine 11/12/2024 8:01 AM EST PHOSPHORUS Routine 11/12/2024 5:00 AM EST MAGNESIUM Routine 11/12/2024 5:00 AM EST COMPLETE BLOOD COUNT, WITHOUT DIFFERENTIAL Routine 11/12/2024 5:00 AM EST BASIC METABOLIC [...] EST PM DUAL LEAD EVAL WITH PROGRAMMING, [id number] Routine 11/11/2024 4:33 PM EST ECHOCARDIOGRAM TRANSESOPHAGEAL [...] EST MAGNESIUM Routine 11/11/2024 2:00 AM EST BASIC METABOLIC PANEL Routine 11/11/2024 2:00 AM EST HEPATIC FUNCTION PANEL Routine 11/11/2024 2:00 AM EST CREATINE KINASE (CK) Routine 11/11/2024 2:00 AM EST POCT GLUCOSE, [...] FINGERSTICK (CHARGE) Routine 11/10/2024 2:02 AM EST PHOSPHORUS Routine 11/10/2024 12:04 AM EST MAGNESIUM Routine 11/10/2024 12:04 AM EST BASIC METABOLIC PANEL Routine 11/10/2024 12:04 AM EST COMPLETE BLOOD COUNT, WITHOUT DIFFERENTIAL Routine 11/10/2024 12:04 AM EST POCT GLUCOSE, FINGERSTICK (CHARGE) Routine 11/09/2024 8:03 PM EST POCT GLUCOSE, FINGERSTICK (CHARGE) Routine 11/09/2024 3:53 PM EST POCT GLUCOSE, FINGERSTICK (CHARGE) Routine 11/09/2024 11:47 AM EST PROBNP, N-TERMINAL Routine 11/09/2024 10:04 AM EST PROCALCITONIN Routine 11/09/2024 10:04 AM EST POCT GLUCOSE, FINGERSTICK (CHARGE) Routine 11/09/2024 7:29 AM EST PHOSPHORUS Routine 11/09/2024 1:50 AM EST MAGNESIUM Routine 11/09/2024 1:50 AM EST COMPLETE BLOOD COUNT, WITHOUT DIFFERENTIAL Routine 11/09/2024 1:50 AM EST BASIC METABOLIC PANEL Routine 11/09/2024 1:50 AM EST POCT GLUCOSE, FINGERSTICK (CHARGE) Routine 11/09/2024 1:41 AM EST POCT GLUCOSE, FINGERSTICK (CHARGE) Routine 11/08/2024 8:45 PM EST POCT GLUCOSE, FINGERSTICK (CHARGE) Routine 11/08/2024 7:58 PM EST CENTRAL LINE Routine 11/08/2024 6:31 PM EST BLOOD GAS, VENOUS Routine 11/08/2024 5:46 PM EST PHOSPHORUS Routine 11/08/2024 5:46 PM EST MAGNESIUM Routine 11/08/2024 5:46 PM EST BASIC METABOLIC [...] TROPONIN T CARD 11/08/2024 12:05 AM EST CREATINE KINASE (CK) Routine 11/08/2024 12:05 AM EST PROBNP, N-TERMINAL Routine 11/08/2024 12:05 AM EST HEPATIC FUNCTION PANEL Routine 11/08/2024 12:05 AM EST COMPLETE BLOOD COUNT, WITHOUT DIFFERENTIAL Routine 11/08/2024 12:05 AM EST PHOSPHORUS Routine 11/08/2024 12:05 AM EST MAGNESIUM Routine 11/08/2024 12:05 AM EST BASIC METABOLIC [...] WITHOUT DIFFERENTIAL Routine 11/07/2024 8:13 AM EST MAGNESIUM Routine 11/07/2024 8:13 AM EST PHOSPHORUS Routine 11/07/2024 8:13 AM EST COMPREHENSIVE METABOLIC [...] FINGERSTICK (CHARGE) Routine 11/06/2024 7:51 AM EST BLOOD CULTURE Routine 11/06/2024 4:58 AM EST BLOOD CULTURE Routine 11/06/2024 4:58 AM EST COMPLETE BLOOD COUNT, WITH DIFFERENTIAL Routine 11/06/2024 4:58 AM EST PHOSPHORUS Routine 11/06/2024 4:58 AM EST MAGNESIUM Routine 11/06/2024 4:58 AM EST COMPREHENSIVE METABOLIC PANEL Routine 11/06/2024 4:58 AM EST POCT GLUCOSE, FINGERSTICK (CHARGE) Routine 11/06/2024 1:17 AM EST POCT GLUCOSE, FINGERSTICK (CHARGE) Routine 11/05/2024 11:05 PM EST POCT GLUCOSE, FINGERSTICK (CHARGE) Routine 11/05/2024 6:10 PM EST POCT GLUCOSE, FINGERSTICK (CHARGE) Routine 11/05/2024 3:37 PM EST ANES LINE - PERIPHERAL, SINGLE LUMEN Routine 11/05/2024 3:11 PM EST ANES BLOCK - LOWER EXTREMITY Routine 11/05/2024 2:13 PM EST PATHOLOGY REPORT Routine 11/05/2024 2:11 PM EST ANES INTUBATION Routine 11/05/2024 2:07 PM EST AMPUTATION BELOW KNEE 11/05/2024 1:17 PM EST Acute osteomyelitis of left calcaneus (HCC) Special Needs Thomas Power saw, bone hook, rake retractors, susan retractors POCT GLUCOSE, FINGERSTICK (CHARGE) Routine 11/05/2024 12:54 PM EST PROTIME-INR Routine 11/05/2024 7:12 AM EST COMPLETE BLOOD COUNT, WITHOUT DIFFERENTIAL Routine 11/05/2024 7:12 AM EST BASIC METABOLIC PANEL Routine 11/05/2024 7:12 AM EST HEPATIC FUNCTION PANEL Routine 11/05/2024 7:12 AM EST CREATINE KINASE, REFLEX TO CKMB Routine 11/05/2024 7:12 AM EST POCT GLUCOSE, [...] FINGERSTICK (CHARGE) Routine 11/02/2024 9:19 PM EST ERYTHROCYTE SEDIMENTATION RATE (ESR) Routine 11/02/2024 8:00 PM EST C-REACTIVE PROTEIN Routine 11/02/2024 8:00 PM EST BLOOD CULTURE Routine 11/02/2024 8:00 PM EST BLOOD CULTURE Routine 11/02/2024 8:00 PM EST VITAMIN D, 25-HYDROXY Routine 11/02/2024 8:00 PM EST TRANSFERRIN Routine 11/02/2024 8:00 PM EST PREALBUMIN Routine 11/02/2024 8:00 PM EST ALBUMIN Routine 11/02/2024 8:00 PM EST PROTIME-INR Routine 11/02/2024 8:00 PM EST BASIC METABOLIC PANEL Routine 11/02/2024 8:00 PM EST COMPLETE BLOOD COUNT, WITH DIFFERENTIAL Routine 11/02/2024 8:00 PM EST (REPORT) BLOOD CULTURE ID PCR PANEL Routine 11/02/2024 8:00 PM EST TYPE AND SCREEN Routine 11/02/2024 7:56 PM EST POCT GLUCOSE, FINGERSTICK (CHARGE) Routine 11/02/2024 6:48 PM EST XR FOOT 1 VIEW-LEFT Routine 11/02/2024 9:13 AM EST Acute osteomyelitis of left calcaneus (HCC) XR FOOT 1 VIEW-LEFT Routine 10/19/2024 10:26 AM EST Acute osteomyelitis of left calcaneus (HCC) XR FOOT 1 VIEW-LEFT Routine 10/05/2024 10:53 AM EST Pain of foot, unspecified laterality POCT GLUCOSE, FINGERSTICK (CHARGE) Routine 09/16/2024 12:06 PM EST HEPARIN ASSAY (ANTI-XA) Routine 09/16/2024 9:00 AM EST MAGNESIUM Routine 09/16/2024 9:00 AM EST BASIC METABOLIC PANEL Routine 09/16/2024 9:00 AM EST COMPLETE BLOOD COUNT, WITHOUT DIFFERENTIAL Routine 09/16/2024 9:00 AM EST LACTIC ACID, PLASMA Routine 09/16/2024 8:47 AM EST POCT GLUCOSE, FINGERSTICK (CHARGE) Routine 09/16/2024 7:45 AM EST POCT GLUCOSE, FINGERSTICK (CHARGE) Routine 09/16/2024 2:34 AM EST HEPARIN ASSAY (ANTI-XA) Routine 09/16/2024 12:19 AM EST POCT GLUCOSE, FINGERSTICK (CHARGE) Routine 09/15/2024 8:53 PM EST POCT GLUCOSE, FINGERSTICK (CHARGE) Routine 09/15/2024 4:55 PM EST POCT GLUCOSE, FINGERSTICK (CHARGE) Routine 09/15/2024 12:24 PM EST ENDOVASCULAR PROCEDURE Routine 09/15/2024 12:06 PM EST Other chronic osteomyelitis of foot, unspecified laterality (HCC) POCT GLUCOSE, FINGERSTICK (CHARGE) Routine 09/15/2024 8:19 AM EST ECG 12-LEAD Routine 09/15/2024 6:25 AM EST HEPARIN ASSAY (ANTI-XA) Routine 09/15/2024 6:00 AM EST PREPARE RBC'S Routine 09/15/2024 5:30 AM EST TYPE AND SCREEN Routine 09/15/2024 4:55 AM EST HEPARIN ASSAY (ANTI-XA) Routine 09/15/2024 4:55 AM EST PHOSPHORUS Routine 09/15/2024 4:55 AM EST MAGNESIUM Routine 09/15/2024 4:55 AM EST BASIC METABOLIC PANEL Routine 09/15/2024 4:55 AM EST COMPLETE BLOOD COUNT, WITH DIFFERENTIAL Routine 09/15/2024 4:55 AM EST POCT GLUCOSE, FINGERSTICK (CHARGE) Routine 09/15/2024 3:48 AM EST POCT GLUCOSE, FINGERSTICK (CHARGE) Routine 09/14/2024 8:59 PM EST POCT GLUCOSE, FINGERSTICK (CHARGE) Routine 09/14/2024 4:45 PM EST POCT GLUCOSE, FINGERSTICK (CHARGE) Routine 09/14/2024 12:15 PM EST HEPARIN ASSAY (ANTI-XA) Routine 09/14/2024 11:20 AM EST POCT GLUCOSE, FINGERSTICK (CHARGE) Routine 09/14/2024 7:31 AM EST HEPARIN ASSAY (ANTI-XA) Routine 09/14/2024 5:20 AM EST POCT GLUCOSE, FINGERSTICK (CHARGE) Routine 09/13/2024 9:56 PM EST HEPARIN ASSAY (ANTI-XA) Routine 09/13/2024 8:43 PM EST POCT GLUCOSE, FINGERSTICK (CHARGE) Routine 09/13/2024 4:46 PM EST HEPARIN ASSAY (ANTI-XA) Routine 09/13/2024 3:46 PM EST PARTIAL THROMBOPLASTIN TIME (PTT) Routine 09/13/2024 3:46 PM EST PROTIME-INR Routine 09/13/2024 3:46 PM EST COMPLETE BLOOD COUNT, WITH DIFFERENTIAL Routine 09/13/2024 3:46 PM EST VAS ARTERIAL DUPLEX LEG-UNILATERAL/LIMI EVELIO Routine 09/13/2024 1:40 PM EST VAS ARTERIAL LEG MULTI LEVEL PRESSURES-BILATERAL Routine 09/13/2024 1:39 PM EST POCT GLUCOSE, FINGERSTICK (CHARGE) Routine 09/13/2024 12:20 PM EST POCT GLUCOSE, FINGERSTICK (CHARGE) Routine 09/13/2024 7:29 AM EST POCT GLUCOSE, FINGERSTICK (CHARGE) Routine 09/12/2024 9:02 PM EST POCT GLUCOSE, FINGERSTICK (CHARGE) Routine 09/12/2024 4:50 PM EST POCT GLUCOSE, FINGERSTICK (CHARGE) Routine 09/12/2024 12:01 PM EST POCT GLUCOSE, FINGERSTICK (CHARGE) Routine 09/12/2024 7:45 AM EST POCT GLUCOSE, FINGERSTICK (CHARGE) Routine 09/12/2024 1:25 AM EST POCT GLUCOSE, FINGERSTICK (CHARGE) Routine 09/11/2024 9:18 PM EST POCT GLUCOSE, FINGERSTICK (CHARGE) Routine 09/11/2024 4:55 PM EST POCT GLUCOSE, FINGERSTICK (CHARGE) Routine 09/11/2024 11:51 AM EST POCT GLUCOSE, FINGERSTICK (CHARGE) Routine 09/11/2024 8:05 AM EST BASIC METABOLIC PANEL Routine 09/11/2024 5:54 AM EST POCT GLUCOSE, FINGERSTICK (CHARGE) Routine 09/11/2024 2:04 AM EST POCT GLUCOSE, FINGERSTICK (CHARGE) Routine 09/10/2024 9:52 PM EST CTA ABDOMEN/BILATERAL RUNOFF W W/O CONTRAST Routine 09/10/2024 9:05 PM EST POCT GLUCOSE, FINGERSTICK (CHARGE) Routine 09/10/2024 4:37 PM EST COMPLETE BLOOD COUNT, WITH DIFFERENTIAL Routine 09/10/2024 4:02 PM EST HEPATIC FUNCTION PANEL Routine 09/10/2024 2:30 PM EST BASIC METABOLIC PANEL Routine 09/10/2024 2:30 PM EST XR OR MINI C-ARM (NR) Routine 09/10/2024 1:17 PM EST POCT GLUCOSE, FINGERSTICK (CHARGE) Routine 09/10/2024 1:10 PM EST ISTAT GLUCOSE (NO CHARGE) Routine 09/10/2024 12:14 PM EST ISTAT GLUCOSE (NO CHARGE) Routine 09/10/2024 11:46 AM EST ANES LINE - PERIPHERAL, SINGLE LUMEN Routine 09/10/2024 11:44 AM EST MISCELLANEOUS ANAEROBIC CULTURE (OR ONLY) Routine 09/10/2024 11:39 AM EST MISCELLANEOUS AEROBIC CULTURE (OR ONLY) Routine 09/10/2024 11:39 AM EST FUNGAL CULTURE, OTHER THAN BLOOD Routine 09/10/2024 11:39 AM EST ANES INTUBATION Routine 09/10/2024 11:12 AM EST NV NEGATIVE PRESSURE WOUND THERAPY DME <= 50 SQ CM 09/10/2024 10:23 AM EST Osteomyelitis of left ankle, unspecified type (HCC) Special Needs GENERAL , POPLITEAL/ SAPHENOUS , LATERAL BEANBAG, MINI C-ARM, MICROSAGITAL SAW, STIMULANT BEADS (PT Needs Hillrom/Director Of Bands Bed) NV OSTECTOMY CALCANEUS 09/10/2024 10:23 AM EST Osteomyelitis of left ankle, unspecified type (HCC) Special Needs GENERAL , POPLITEAL/ SAPHENOUS , LATERAL BEANBAG, MINI C-ARM, MICROSAGITAL SAW, STIMULANT BEADS (PT Needs Hillrom/Director Of Bands Bed) ANES BLOCK - LOWER EXTREMITY Routine 09/10/2024 9:41 AM EST POCT GLUCOSE, FINGERSTICK (CHARGE) Routine 09/10/2024 9:25 AM EST POCT GLUCOSE, FINGERSTICK (CHARGE) Routine 09/10/2024 8:51 AM EST POCT GLUCOSE, FINGERSTICK (CHARGE) Routine 09/10/2024 8:42 AM EST CARDIOLOGY PROCEDURE REPORT 09/09/2024 IMAGING-SCAN 09/09/2024 ECG 12-LEAD 09/06/2024 TYPE AND SCREEN Routine 09/03/2024 2:40 PM EST Preop examination Acute osteomyelitis of right ankle or foot (HCC) Primary hypertension Atrial fibrillation, unspecified type (HCC) PAD (peripheral artery disease) (HCC) Sleep apnea, unspecified type Type 2 diabetes mellitus with foot ulcer, without long-term current use of insulin (HCC) Stage 3a chronic kidney disease (CKD) (HCC) Hyperlipidemia, unspecified hyperlipidemia type Smoker Complete AV block (HCC) TRANSFERRIN Routine 09/03/2024 2:40 PM EST Preop examination Acute osteomyelitis of right ankle or foot (HCC) Primary hypertension Atrial fibrillation, unspecified type (HCC) PAD (peripheral artery disease) (HCC) Sleep apnea, unspecified type Type 2 diabetes mellitus with foot ulcer, without long-term current use of insulin (HCC) Stage 3a chronic kidney disease (CKD) (HCC) Hyperlipidemia, unspecified hyperlipidemia type Smoker Complete AV block (HCC) PREALBUMIN Routine 09/03/2024 2:40 PM EST Preop examination Acute osteomyelitis of right ankle or foot (HCC) Primary hypertension Atrial fibrillation, unspecified type (HCC) PAD (peripheral artery disease) (HCC) Sleep apnea, unspecified type Type 2 diabetes mellitus with foot ulcer, without long-term current use of insulin (HCC) Stage 3a chronic kidney disease (CKD) (HCC) Hyperlipidemia, unspecified hyperlipidemia type Smoker Complete AV block (HCC) HEMOGLOBIN A1C WITH ESTIMATED AVERAGE GLUCOSE Routine 09/03/2024 2:40 PM EST Preop examination Acute osteomyelitis of right ankle or foot (HCC) Primary hypertension Atrial fibrillation, unspecified type (HCC) PAD (peripheral artery disease) (HCC) Sleep apnea, unspecified type Type 2 diabetes mellitus with foot ulcer, without long-term current use of insulin (HCC) Stage 3a chronic kidney disease (CKD) (HCC) Hyperlipidemia, unspecified hyperlipidemia type Smoker Complete AV block (HCC) MRSA PCR SCREEN, QUALITATIVE Routine 09/03/2024 2:40 PM EST Preop examination Acute osteomyelitis of right ankle or foot (HCC) Primary hypertension Atrial fibrillation, unspecified type (HCC) PAD (peripheral artery disease) (HCC) Sleep apnea, unspecified type Type 2 diabetes mellitus with foot ulcer, without long-term current use of insulin (HCC) Stage 3a chronic kidney disease (CKD) (HCC) Hyperlipidemia, unspecified hyperlipidemia type Smoker Complete AV block (HCC) from Last 3 Months Results * (ABNORMAL) POCT Glucose, Fingerstick (11/25/2024 12:13 PM EST) Only the most recent of138 resultswithin the time period is included. POC Glucose 120(H) 65 - 99 mg/dL 11/25/2024 12:14 PM EST Blood specimen / Unknown 11/25/2024 12:13 PM EST 11/25/2024 12:14 PM EST Dallsa Camejo MD POINT OF CARE TEST O RDERABLES [facility] See Below * Glucose, Fingerstick (POCT) (TID AC) (11/24/2024 12:01 PM EST) 11/24/2024 12:0 1 PM EST Corbin Adonis JALLOH POCT ORDERABLES - DEVICE * (ABNORMAL) Complete Blood Count WITHOUT Differential - in AM (11/24/2024 6:56 AM EST) Only the most recent of21 resultswithin the time period is included. White Blood Cell Count 10.0 4.0 - 11.0 Thou/uL 11/24/2024 9:12 AM [facility] Platelet Count 366 150 - 450 Thou/uL 11/24/2024 9:12 AM [facility] Hemoglobin 9.0(L) 13.0 - 17.7 g/dL 11/24/2024 9:12 AM [facility] Hematocrit 29.5(L) 39.0 - 54.0 % 11/24/2024 9:12 AM [facility] Red Blood Cell Count 3.25(L) 4.50 - 6.20 Mil/uL 11/24/2024 9:12 AM [facility] MCV 91 80 - 100 fL 11/24/2024 9:12 AM [facility] MCH 27.7 27.0 - 31.0 pg 11/24/2024 9:12 AM [facility] MCHC 30.5 30.0 - 36.0 g/dL 11/24/2024 9:12 AM [facility] RDW 18.0(H) 11.5 - 14.5 % 11/24/2024 9:12 AM [facility] MPV 10.8 7.5 - 12.5 fL 11/24/2024 9:12 AM [facility] Blood Blood specimen / Unknown 11/24/2024 6:56 AM EST 11/24/2024 8:52 AM EST Gianluca Calles MD LAB BLOOD ORDERABLES [facility] [address] [place] [address], [address] [address] * (ABNORMAL) Comprehensive Metabolic Panel (AM) (11/24/2024 6:56 AM EST) Only the most recent of4 resultswithin the time period is included. Pathologist [facility] Glucose 99 65 - 99 mg/dL 11/24/2024 9:28 AM [facility] Comment:Fasting: <100 mg/dL, Non-Fasting: <200 mg/dL (ADA 2004) Blood Urea Nitrogen (BUN) 35(H) 8 - 21 mg/dL 11/24/2024 9:28 AM [facility] Creatinine 1.6(H) 0.5 - 1.3 mg/dL 11/24/2024 9:28 AM [facility] eGFR 48(L) >59 11/24/2024 9:28 AM [facility] Comment:CKD-EPI (2020) in mL /min/1.73 sq meters. Sodium 139 136 - 145 mmol/L 11/24/2024 9:28 AM [facility] Potassium 3.8 3.4 - 5.3 mmol/L 11/24/2024 9:28 AM [facility] Chloride 102 98 - 107 mmol/L 11/24/2024 9:28 AM [facility] CO2 24 22 - 33 mmol/L 11/24/2024 9:28 AM [facility] Calcium 8.9 8.7 - 10.5 mg/dL 11/24/2024 9:28 AM [facility] Alkaline Phosphatase 97 45 - 128 U/L 11/24/2024 9:28 AM [facility] Aspartate Aminotrans (AST) 14 10 - 55 U/L 11/24/2024 9:28 AM [facility] Alanine Aminotrans (ALT) 20 10 - 55 U/L 11/24/2024 9:28 AM [facility] Bilirubin, Total 0.2 0.2 - 1.0 mg/dL 11/24/2024 9:28 AM [facility] Protein, Total 6.7 6.3 - 8.3 g/dL 11/24/2024 9:28 AM [facility] Albumin 3.1(L) 3.4 - 4.8 g/dL 11/24/2024 9:28 AM [facility] BUN/Creatinine Ratio 22 10.0 - 25.0 Ratio 11/24/2024 9:28 AM [facility] Globulin 3.6 1.5 - 3.9 g/dL 11/24/2024 9:28 AM [facility] Albumin/Globulin Ratio 0.9(L) 1.0 - 3.0 Ratio 11/24/2024 9:28 AM [facility] Anion Gap 13 7 - 17 11/24/2024 9:28 AM [facility] Blood Blood specimen / Unknown 11/24/2024 6:56 AM EST 11/24/2024 8:52 AM EST Gianluca Calles MD LAB BLOOD ORDERABLES Performing Organization Address City/State/[facility] [place] [address], [place] [address] * Influenza A/B, RSV, SARS-CoV-2 BALJIND[employer] Multiplex (FLUVID) (11/23/2024 10:45 AM EST) Influenza A Virus Not Detected Not Detected 11/23/2024 12:00 PM [facility] Influenza B Virus Not Detected Not Detected 11/23/2024 12:00 PM [facility] SARS-CoV-2 Not Detected Not Detected 11/23/2024 12:00 PM [facility] Respiratory Syncytial Virus Not Detected Not Detected 11/23/2024 12:00 PM [facility] Comment Negative results do not preclude SARS-CoV-2, Influenza or RSV infection and should not be used as the sole basis for treatment or other patient management decisions. 11/23/2024 12:00 PM [facility] Swab, Nasopharyngeal Nasopharyngeal swab / Unknown 11/23/2024 10:45 AM EST 11/23/2024 11:08 AM EST Gianluca Calles MD MICROBIOLOGY - GENER AL ORDERABLES Performing Organization Address [facility] [place] [address], [place] [address] * (ABNORMAL) Erythrocyte Sedimentation Rate (ESR) (11/23/2024 6:43 AM EST) Only the most recent of2 resultswithin the time period is included. Erythrocyte Sediment Rate (ESR) 62(H) <20 MM/HR 11/23/2024 12:07 PM EST [facility] Blood specimen / Unknown 11/23/2024 6:43 AM EST 11/23/2024 6:49 AM EST Gianluca Calles MD LAB BLOOD ORDERABLES Performing Organization Address [facility] [place] [address], [address] [address] * (ABNORMAL) C-REACTIVE PROTEIN (11/23/2024 6:43 AM EST) Only the most recent of2 resultswithin the time period is included. C-Reactive Protein 4.88(H) 0 - 0.49 mg/dL 11/23/2024 11:53 AM EST [facility] 11/23/2024 6:43 AM EST 11/23/2024 6:49 AM EST Gianluca Calles MD LAB BLOOD ORDERABLES Performing Organization Address City/[facility]/[place] [address], [address] [address] * Magnesium (AM) (11/23/2024 6:43 AM EST) Only the most recent of24 resultswithin the time period is included. Magnesium 2.2 1.6 - 2.7 mg/dL 11/23/2024 7:22 AM EST [facility] Blood Blood specimen / Unknown 11/23/2024 6:43 AM EST 11/23/2024 6:49 AM EST Gianluca Calles MD LAB BLOOD ORDERABLES Performing Organization Address City/[facility] [place] [address], [place] [address] * CREATINE KINASE (CK) (11/23/2024 6:43 AM EST) Only the most recent of5 resultswithin the time period is included. Creatine Kinase (CK) 36 24 - 204 U/L 11/23/2024 11:53 AM [facility] 11/23/2024 6:43 AM EST 11/23/2024 6:49 AM EST Gianluca Calles MD LAB BLOOD ORDERABLES Performing Organization Address [facility] [place] [address], [place] [address] * (ABNORMAL) HEPATIC FUNCTION PANEL (11/23/2024 6:43 AM EST) Only the most recent of5 resultswithin the time period is included. Alkaline Phosphatase 103 45 - 128 U/L 11/23/2024 11:53 AM [facility] Aspartate Aminotrans (AST) 22 10 - 55 U/L 11/23/2024 11:53 AM [facility] Alanine Aminotrans (ALT) 28 10 - 55 U/L 11/23/2024 11:53 AM [facility] Bilirubin, Total 0.2 0.2 - 1.0 mg/dL 11/23/2024 11:53 AM [facility] Protein, Total 6.6 6.3 - 8.3 g/dL 11/23/2024 11:53 AM [facility] Albumin 3.1(L) 3.4 - 4.8 g/dL 11/23/2024 11:53 AM [facility] Bilirubin, Direct 0.1 0 - 0.2 mg/dL 11/23/2024 11:53 AM [facility] Globulin 3.5 1.5 - 3.9 g/dL 11/23/2024 11:53 AM [facility] Albumin/Globulin Ratio 0.9(L) 1.0 - 3.0 Ratio 11/23/2024 11:53 AM [facility] 11/23/2024 6:43 AM EST 11/23/2024 6:49 AM EST Gianluca Calles MD LAB BLOOD ORDERABLES [address] [address], [address] [address] * (ABNORMAL) Basic Metabolic Panel (AM) (11/23/2024 6:43 AM EST) Only the most recent of26 resultswithin the time period is included. Glucose 114(H) 65 - 99 mg/dL 11/23/2024 7:22 AM [facility] Comment:Fasting: <100 mg/dL, Non-Fasting: <200 mg/dL (ADA 2004) Blood Urea Nitrogen (BUN) 31(H) 8 - 21 mg/dL 11/23/2024 7:22 AM [facility] Creatinine 1.5(H) 0.5 - 1.3 mg/dL 11/23/2024 7:22 AM [facility] eGFR 52(L) >59 11/23/2024 7:22 AM [facility] Comment:CKD-EPI (2020) in mL /min/1.73 sq meters. Sodium 140 136 - 145 mmol/L 11/23/2024 7:22 AM [facility] Potassium 4.0 3.4 - 5.3 mmol/L 11/23/2024 7:22 AM [facility] Chloride 104 98 - 107 mmol/L 11/23/2024 7:22 AM [facility] CO2 25 22 - 33 mmol/L 11/23/2024 7:22 AM [facility] Anion Gap 11 7 - 17 11/23/2024 7:22 AM [facility] Calcium 9.0 8.7 - 10.5 mg/dL 11/23/2024 7:22 AM EST [facility] BUN/Creatinine Ratio 21 10.0 - 25.0 Ratio 11/23/2024 7:22 AM EST [facility] Blood Blood specimen / Unknown 11/23/2024 6:43 AM EST 11/23/2024 6:49 AM EST Gianluca Calles MD LAB BLOOD ORDERABLES [address] [address], [address] [address] * PM LEADLESS SINGLE-CARDIAC CHAMBER EVAL W/PROGRAM (IN PERSON), [id number] (11/22/2024 2:20 PM EST) Date Time Interrogation Session 20,250,224,13 5,809 PACEART Implantable Pulse Generator Glass Driller Med[employer]onic PACEART Implantable Pulse Generator Model [id number] Micra AV2 PACEART Implantable Pulse Generator Serial Number [id number] PACEART Implantable Pulse Generator Type Pacemaker PACEART Implantable Pulse Generator Implant Date ,250,218,19 0,000 PACEART Otf Setting Mode (NBG Code) [...] last reset 99.86 % PACEART Otf Statistic C[employer]OLA WORKER Percent 100.00 % PACEART Otf Statistic VS Percent 0 % PACEART Anatomical Region Laterality Modality Other 11/22/2024 1:58 PM EST Narrative 11/28/2024 10:40 AM EST Micra AV leadless Pacemaker evaluation completed on B10E. Per patient request and verbal order from SHUBHAM Pitts: LRL increased from 50 bpm to 60 bpm. Presenting rhythm: AM/CUPOLA WORKER @ 62 bpm. Underlying rhythm: CHB. AM/CUPOLA WORKER pacing 81%, with total V-pacing 100%. Battery and testing results evaluated and within normal limits. Normal leadless pacemaker function. JOSUE Alvarenga Gianluca Calles MD [facility] ORDERABLES * (ABNORMAL) Urinalysis with Reflex to Microscopic (11/19/2024 4:00 PM EST) Color Yellow 11/19/2024 4:30 PM [facility] Clarity Clear 11/19/2024 4:30 PM [facility] Specific [place] 1.008 1.003 - 1.030 11/19/2024 4:30 PM [facility] pH 6.0 5.0 - 8.0 11/19/2024 4:30 PM [facility] Leukocyte Esterase Large(A) Negative 11/19/2024 4:30 PM [facility] Nitrite Negative Negative 11/19/2024 4:30 PM [facility] [facility] Protein Negative Negative 11/19/2024 4:30 PM [facility] Glucose 0 0 - 99 mg/dL 11/19/2024 4:30 PM [facility] Ketones Negative Negative 11/19/2024 4:30 PM [facility] Blood Negative Negative 11/19/2024 4:30 PM [facility] Bilirubin Negative Negative 11/19/2024 4:30 PM [facility] WBC >25(H) 0 - 4 per hpf 11/19/2024 4:30 PM [facility] RBC 2 0 - 4 per hpf 11/19/2024 4:30 PM [facility] X-Specimen 16 Voided urine specimen / Unknown 11/19/2024 4:00 PM EST 11/19/2024 4:18 PM EST Anmol Reynoso MD URINE ORDERABLES [address] [address], [address] [address] * Urea Nitrogen, Urine, Random (11/19/2024 4:00 PM EST) Urea Nitrogen, Random Urine 273 mg/dL 11/19/2024 5:43 PM EST [facility] Comment:Reference range not established for random specimen. Urine Urine specimen / Unknown 11/19/2024 4:00 PM EST 11/19/2024 4:19 PM EST Anmol Reynoso MD URINE ORDERABLES Performing Organization Address City/[facility]/ZIP Co de Phone Number [address] [address], [address] [address] * SODIUM, URINE, RANDOM (11/19/2024 4:00 PM EST) Sodium, Urine Random 21 mmol/L 11/19/2024 5:43 PM [facility] Comment:Reference range not established for random specimen. Urine Urine specimen / Unknown 11/19/2024 4:00 PM EST 11/19/2024 4:19 PM EST Anmol Reynoso MD URINE ORDERABLES Performing Organization Address City/[facility]/ZIP Co de Phone Number [address] [address], [address] [address] * OSMOLALITY, URINE (11/19/2024 4:00 PM EST) Osmolality, Urine 201 50 - 1,200 mOsm/Kg 11/19/2024 6:20 PM [facility] Urine Urine specimen / Unknown 11/19/2024 4:00 PM EST 11/19/2024 4:19 PM EST Anmol Reynoso MD URINE ORDERABLES Performing Organization Address City/[facility] Co de Phone Number [address] [address], [address] [address] * CREATININE, URINE, RANDOM (11/19/2024 4:00 PM EST) Creatinine, Urine, Random 31 mg/dL 11/19/2024 5:43 PM EST [facility] Comment:Reference range not established for random specimen. Urine Urine specimen / Unknown 11/19/2024 4:00 PM EST 11/19/2024 4:19 PM EST Anmol Reynoso MD URINE ORDERABLES Performing Organization Address City/[facility] [place] [address], [place] [address] * Chloride, Urine, Random (11/19/2024 4:00 PM EST) Chloride, Urine, Random 23 mmol/L 11/19/2024 5:43 PM EST [facility] Comment:Reference range not established for random specimen. Urine Urine specimen / Unknown 11/19/2024 4:00 PM EST 11/19/2024 4:19 PM EST Anmol Reynoso MD URINE ORDERABLES Performing Organization Address City/[facility] [place] [address], [place] [address] * CVC INSERT (TUNNEL) W/O PORT GREATER [...] A preprocedure time-out was performed per [facility] protocol. The right neck and chest was [...] access, a 26 cm long dual lumen 5-[place] Citizen cuffed tunneled catheter was placed under fluoroscopic [...] A preprocedure time-out was performed per [facility] protocol. The right neck and chest was [...] access, a 26 cm long dual lumen [place] Citizen cuffed tunneled catheter was placed under fluoroscopic [...] Alyssia PATTON CV ENDOVASCULAR PAMELA BUCK * PM SINGLE LEAD EVAL WITH PROGRAM,[id number] (11/18/2024 7:45 AM EST) Date Time Interrogation Session ,,220,07 3,509 PACEART Implantable Pulse Generator Glass Driller Medtronic PACEART Implantable Pulse Generator Model [id number] Micra AV2 PACEART Implantable Pulse Generator Serial Number [id number] PACEART Implantable Pulse Generator Type Pacemaker PACEART [...] last reset 92.76 % PACEART Otf Statistic CUPOLA WORKER Percent 99.88 % PACEART Otf Statistic VS Percent 0.12 % PACEART Anatomical Region Laterality Modality Other 11/18/2024 7:35 AM EST Narrative 11/19/2024 12:19 PM EST Pacemaker evaluation completed on B10E, device interrogation ordered for post-OP. Presenting rhythm: AM-CUPOLA WORKER @ 69 bpm. Underlying rhythm: No ventricular response greater than 40 bpm. AM-CUPOLA WORKER @ 84.8%. Battery and device parameters evaluated and within normal limits. Normal pacemaker function. Micra pacemakers do not record events. Sri Pena RN Corbin Lamb APRN CV CARDIAC SERVICE S ORDERABLES * XR Chest 1 view (11/17/2024 5:48 [...] APRN IMG DIAGNOSTIC SOCORRO GING ORDERABLES * ANES LINE - ARTERIAL (11/17/2024 2:01 PM EST) Narrative Marlin Miner PA-C - 11/17/2024 2:01 PM EST Marlin Miner PA-C ? 11/17/2024 ??2:02 PM Anesthesia Procedure Note - Arterial Line Insertion- R radial Patient Name: Blas Genao : 1960 Patient location: pre-op Indications: hemodynamic [...] Post-procedure: stablization device applied Marlin Miner PA-C [place] ANESTHESIA * Phosphorus (AM) (11/17/2024 8:16 AM EST) Only the most recent of17 resultswithin the time period is included. Phosphorus 3.5 2.7 - 4.5 mg/dL 11/17/2024 9:01 AM EST [facility] Blood (Plasma/Serum) 11/17/2024 8:16 AM EST 11/17/2024 8:30 AM EST Maddison Villalpando MD LAB BLOOD ORDERABLES Performing Organization Address City/State/[facility] [place] [address], [place] [address] * Type and Screen (11/16/2024 7:23 AM EST) Only the most recent of4 resultswithin the time period is included. ABO/Rh A POSITIVE 11/16/2024 8:39 AM [facility] Antibody Screen NEGATIVE 11/16/2024 8:53 AM [facility] Specimen Expiration 11/19/2024 11/16/2024 8:39 AM [facility] Unit Number [id number] 11/16/2024 9:12 AM [facility] Blood Component Type LEUKOREDUCED RED CELLS 11/16/2024 9:12 AM [facility] Unit Division 00 11/16/2024 9:12 AM [facility] Unit Status REL FROM ALLOC 2:05 AM [facility] Transfusion Status OK TO TRANSFUSE 11/16/2024 9:12 AM [facility] Crossmatch Result Electronically Compatible 11/16/2024 9:12 AM [facility] Unit Number [id number] 11/16/2024 9:12 AM [facility] Blood Component Type LEUKOREDUCED RED CELLS 11/16/2024 9:12 AM [facility] Unit Division 00 11/16/2024 9:12 AM [facility] Unit Status REL FROM ALLOC 2:05 AM [facility] Transfusion Status OK TO TRANSFUSE 11/16/2024 9:12 AM [facility] Crossmatch Result Electronically Compatible 11/16/2024 9:12 AM [facility] Unit Number [id number] 11/16/2024 9:12 AM [facility] Blood Component Type LEUKOREDUCED RED CELLS 11/16/2024 9:12 AM [facility] Unit Division 00 11/16/2024 9:12 AM [facility] Unit Status REL FROM ALLOC 2:05 AM [facility] Transfusion Status OK TO TRANSFUSE 11/16/2024 9:12 AM [facility] Crossmatch Result Electronically Compatible 11/16/2024 9:12 AM [facility] Unit Number [id number] 11/16/2024 9:12 AM [facility] Blood Component Type LEUKOREDUCED RED CELLS 11/16/2024 9:12 AM [facility] Unit Division 00 11/16/2024 9:12 AM [facility] Unit Status REL FROM ALLOC 2:05 AM [facility] Transfusion Status OK TO TRANSFUSE 11/16/2024 9:12 AM [facility] Crossmatch Result Electronically Compatible 11/16/2024 9:12 AM [facility] Blood Blood specimen / Unknown 11/16/2024 7:23 AM EST 11/16/2024 7:57 AM EST Comment:Blood Cristina Rodriguez APRN BLOOD BANK TEST OR DERABLES Performing Organization Address City/[facility]/ZIP Co de Phone Number HOSPITAL LAB See Below [address] [address] * Prepare RBC's:Prepare in: Units; Number of Units: 4; Transfusion Indications: Hemoglobin less than 7 gm/dl or HCT less than 21% (11/15/2024 10:54 AM EST) Only the most recent of3 resultswithin the time period is included. Units Ordered 4 11/15/2024 11:04 AM EST Serum specimen / Unknown 11/15/2024 10:54 AM EST 11/16/2024 9:11 AM EST Cristina Rodriguez APRN BLOOD BANK PRODUCT ORDERABLES Performing Organization Address City/[facility] Co de Phone Number HOSPITAL LAB See Below * (ABNORMAL) proBNP, N-terminal (11/15/2024 8:08 AM EST) Only the most recent of6 resultswithin the time period is included. proBNP, N-terminal 429(H) <125 pg/mL 11/15/2024 9:21 AM EST [facility] Blood Plasma specimen / Unknown 11/15/2024 8:08 AM EST 11/15/2024 8:57 AM EST Valencia Lau TREASURY AGENT LAB BLOOD ORDERAB LES Performing Organization Address City/[facility] Co de Phone Number [address] [address], [address] [address] * MRI Brain w/o contrast (11/12/2024 1:43 [...] * PM DUAL LEAD EVAL WITH PROGRAMMING, [id number] (11/12/2024 1:15 PM EST) Date Time Interrogation Session 20,250,214,13 4,157 PACEART Implantable Pulse Generator Glass Driller Medtronic PACEART Implantable Pulse Generator Model [id number] Jaime HARP MRI PACEART Implantable Pulse Generator Serial Number [id number] PACEART Implantable Pulse Generator Type Pacemaker PACEART [...] reset 99.97 % PACEART Otf Statistic AP CUPOLA WORKER Percent 76.74 % PACEART Otf Statistic CUPOLA WORKER Percent 23.23 % PACEART Otf Statistic AP VS Percent 0.01 % PACEART Otf Statistic VS Percent 0.01 % PACEART AT/AF [place] Percent 0 % PACEART Episode Statistic Recent [...] Villalpando MD CV CARDIAC SERVICES ORDERABLES * PM DUAL LEAD EVAL WITH PROGRAMMING, [id number] (11/11/2024 4:33 PM EST) Date Time Interrogation Session 20,250,213,17 1,358 PACEART Implantable Pulse Generator Glass Driller Medtronic PACEART Implantable Pulse Generator Model [id number] Jaime ESCOBAR PACEART Implantable Pulse Generator Serial Number [id number] PACEART Implantable Pulse Generator Type Pacemaker PACEART [...] reset 89.06 % PACEART Otf Statistic AP CUPOLA WORKER Percent 62.37 % PACEART Otf Statistic CUPOLA WORKER Percent 26.83 % PACEART Otf Statistic AP VS Percent 8.97 % PACEART Otf Statistic VS Percent 1.83 % PACEART AT/AF [place] Percent 0 % PACEART Episode Statistic Recent [...] ordered for function. Presenting rhythm: AP / CUPOLA WORKER @ 60 bpm. Underlying rhythm: SB @ [...] inserted atraumatically into the esophagus by the wastewater treatment supervisor. With the patient in a supine position [...] Dallas Camejo MD CV ECHO ORDERABLES * XR Chest 1 view-Portable (11/10/2024 6:13 PM EST) Only the most recent of4 resultswithin the time period is included. Anatomical Region Laterality Modality Chest Computed Radiogr [...] IMG DIAGNOSTIC IMAGI NG ORDERABLES * (ABNORMAL) Procalcitonin (11/09/2024 10:04 AM EST) Procalcitonin 0.40(H) <0.09 ng/mL 11/09/2024 11:01 AM EST [facility] Comment: (NOTE) ?Procalcitonin (PCT) Guided Antibiotic ? [...] PA-C LAB BLOOD ORDERABLES Performing Organization Address City/State/[facility] [place] [address], [place] [address] * INSJ NON-TUNNELED CENTRAL VENOUS CATH AGE [...] to verify the correct patient, procedure, equipment, residential support specialist and site/side marked as required. Indications: vascular [...] Blood Gas, Venous (11/08/2024 5:46 PM EST) Pathologist [facility] Venous Blood PH 7.35 7.33 - 7.43 11/08/2024 6:00 PM EST [facility] Venous pCO2 49 35 - 50 mmHG 11/08/2024 6:00 PM EST [facility] Venous pO2 45 0 - 60 mmHG 11/08/2024 6:00 PM [facility] Venous Total CO2 28 23 - 29 mmol/L 11/08/2024 6:00 PM [facility] Respiratory Info NASAL 6 L/MIN 11/08/2024 5:29 PM EST Base Excess 0.9 mmol/L 11/08/2024 6:00 PM [facility] Comment:Reference Range: Neg ative 2 to Positive 3 Blood Blood specimen / Unknown 11/08/2024 5:46 PM EST 11/08/2024 5:55 PM EST Eunice Garrison APRN LAB BLOOD ORDERA BLES Performing Organization Address City/State/[facility] [place] [address], [address] [address] * CT Head w w/o contrast (11/08/2024 [...] Use of iterative reconstruction technique Kayla Orona [facility] CT ORDERABLES * (ABNORMAL) High Sensitivity Troponin T (Once) (11/08/2024 12:05 AM EST) Only the most recent of3 resultswithin the time period is included. High Sensitivity Troponin T 26(H) <23 ng/L 11/08/2024 12:39 AM [facility] Delta (Change) NO CHANGE <3 11/08/2024 12:39 AM [facility] Blood (Plasma/Serum) 11/08/2024 12:05 AM EST 11/08/2024 12:16 AM EST Kayla Orona TREASURY AGENT LAB BLOOD ORDERABLES [address] [address], [address] [address] * Respiratory PCR Panel (11/07/2024 6:30 PM EST) Adenovirus Not Detected Not Detected 11/08/2024 12:23 AM [facility] Coronavirus 229E Not Detected Not Detected 11/08/2024 12:23 AM [facility] Coronavirus HKU1 Not Detected Not Detected 11/08/2024 12:23 AM [facility] Coronavirus NL63 Not Detected Not Detected 11/08/2024 12:23 AM [facility] Coronavirus OC43 Not Detected Not Detected 11/08/2024 12:23 AM [facility] Human Metapneumovirus Not Detected Not Detected 11/08/2024 12:23 AM [facility] Rhinovirus/Enterov irus Not Detected Not Detected 11/08/2024 12:23 AM [facility] Influenza A Not Detected Not Detected 11/08/2024 12:23 AM [facility] Influenza B Not Detected Not Detected 11/08/2024 12:23 AM [facility] Parainfluenza 1 (PIV1) Not Detected Not Detected 11/08/2024 12:23 AM [facility] Parainfluenza 2 (PIV2) Not Detected Not Detected 11/08/2024 12:23 AM [facility] Parainfluenza 3 (PIV3) Not Detected Not Detected 11/08/2024 12:23 AM [facility] Parainfluenza 4 (PIV4) Not Detected Not Detected 11/08/2024 12:23 AM [facility] Respiratory Syncytial Virus Not Detected Not Detected 11/08/2024 12:23 AM [facility] Bordetella pertussis Not Detected Not Detected 11/08/2024 12:23 AM [facility] Chlamydophila pneumoniae Not Detected Not Detected 11/08/2024 12:23 AM EST [facility] Mycoplasma pneumoniae Not Detected Not Detected 11/08/2024 12:23 AM [facility] Bordetella parapertussis Not Detected Not Detected 11/08/2024 12:23 AM [facility] SARS CoV 2 Not Detected Not Detected 11/08/2024 12:23 AM EST [facility] X-Specimen 24 Nasopharyngeal swab / Unknown 11/07/2024 6:30 PM EST 11/07/2024 8:00 PM EST Kayla Yeyo JALLOH MICROBIOLOGY - GENER AL ORDERABLES [facility] [address] [place] [address], * ECG 12 lead (11/07/2024 2:58 PM EST) Only the most recent of4 resultswithin the time period is included. Systolic BP 116 mmHg EKG [facility] Diastolic BP 57 mmHg EKG [facility] Ventricular rate 62 BPM EKG [facility] Atrial rate 55 BPM EKG [facility] QRS duration 168 ms EKG [facility] Q-T interval 506 ms EKG [facility] QTC calculation (Bazett) 513 ms EKG [facility] R axis 104 degrees EKG [facility] T axis -39 degrees EKG [facility] 11/07/2024 2:58 PM EST Narrative EKG [facility] - 11/07/2024 6:25 PM EST Ventricular-paced rhythm [...] 6:25:53 PM Dallas Camejo MD ECG ORDERABLES EKG [facility] * BLOOD CULTURE Peripheral (11/07/2024 1:02 PM EST) Only the most recent of8 resultswithin the time period is included. Culture Sterile after 5 days 11/12/2024 7:50 AM EST [facility] Microbiology Peripheral blood specimen / Unknown 11/07/2024 1:02 PM EST 11/07/2024 1:23 PM EST Chris Taylor MD LAB AMB MICRO SAVANAA BLES Performing Organization Address City/[facility]/ZIP Co de Phone Number [facility] [address] * (ABNORMAL) Blood Gas, Arterial (STAT) (11/07/2024 12:36 PM EST) pH, Arterial 7.38 7.35 - 7.45 11/07/2024 1:02 PM EST [facility] pCO2, Arterial 36 32 - 45 mmHG 11/07/2024 1:02 PM [facility] pO2, Arterial 119(H) 75 - 95 mmHG 11/07/2024 1:02 PM [facility] CO2, Total 22 22 - 28 mmol/L 11/07/2024 1:02 PM [facility] Respiratory Info OTHER 11/07/19 25 12:36 PM EST Base Deficiency 3.5 mmol/L 1:02 PM EST [facility] Comment:Reference Range: Neg ative 2 to Positive 3 Blood Blood specimen / Unknown 11/07/2024 12:36 PM EST 11/07/2024 12:50 PM EST Kayla Orona APRN LAB BLOOD ORDERABLES Performing Organization Address City/[facility]/ZIP Co de Phone Number [facility] [address] [place] [address], [facility] [address] [place] [address] * (ABNORMAL) Complete Blood Count WITH Differential - Early AM (11/06/2024 4:58 AM EST) Only the most recent of5 resultswithin the time period is included. White Blood Cell Count 11.9(H) 4.0 - 11.0 Thou/uL 11/06/2024 5:26 [facility] Platelet Count 346 150 - 450 Thou/uL 11/06/2024 5:26 [facility] Hemoglobin 8.7(L) 13.0 - 17.7 g/dL 11/06/2024 5:26 [facility] Hematocrit 27.9(L) 39.0 - 54.0 % 11/06/2024 5:26 [facility] Red Blood Cell Count 3.05(L) 4.50 - 6.20 Mil/uL 11/06/2024 5:26 [facility] MCV 92 80 - 100 fL 11/06/2024 5:26 [facility] MCH 28.5 27.0 - 31.0 pg 11/06/2024 5:26 AM [facility] MCHC 31.2 30.0 - 36.0 g/dL 11/06/2024 5:26 [facility] RDW 16.4(H) 11.5 - 14.5 % 11/06/2024 5:26 [facility] MPV 9.5 7.5 - 12.5 fL 11/06/2024 5:26 [facility] Neutrophils Auto 88.8 % 11/06/19 5:26 [facility] Immature Granulocytes 1.1 % 11/06/2024 5:26 AM [facility] Lymphocytes Auto 3.4 % 11/06/19 5:26 [facility] Monocytes Auto 6.6 % 11/06/2024 5:26 [facility] Eosinophils Auto 0.0 % 11/06/19 5:26 [facility] Basophils Auto 0.1 % 11/06/2024 5:26 [facility] Abs Neutrophils Auto 10.57(H) 2.00 - 7.50 Thou/uL 11/06/2024 5:26 [facility] Abs Immature Granulocytes 0.13(H) 0.00 - 0.10 Thou/uL 11/06/2024 5:26 AM [facility] Abs Lymphocytes Auto 0.41(L) 1.50 - 4.50 Thou/uL 11/06/2024 5:26 AM [facility] Abs Monocytes Auto 0.79 0.20 - 1.50 Thou/uL 11/06/2024 5:26 AM [facility] Abs Eosinophils Auto 0.00 0.00 - 0.70 Thou/uL 11/06/2024 5:26 AM [facility] Abs Basophils Auto 0.01 0.00 - 0.20 Thou/uL 11/06/2024 5:26 AM [facility] Blood Blood specimen / Unknown 11/06/2024 4:58 AM EST 11/06/2024 5:15 AM EST Renea PATTON LAB BLOOD ORDERABLES Performing Organization Address City/State/[facility] [place] [address], [place] [address] * ANES LINE - PERIPHERAL, SINGLE LUMEN (11/05/2024 3:11 PM EST) Only the most recent of2 resultswithin the time period is included. Narrative Juaquin Rueda MD - 11/05/2024 3:11 PM EST Juaquin Rueda MD ? 11/05/2024 ??3:11 PM Anesthesia Procedure Note - Peripheral IV Placement Patient Name: Blas Genao : 1960 Patient location: OR Indication(s): surgery, fluid administration, IV medication and vascular access Performed by: Anesthesiologist ? Juaquin Rueda MD ? Procedure Preparation Skin prep: alcohol - completely dried prior to procedure Hand hygeine performed prior to needle/catheter insertion Sterile barriers in place: cap, gloves and mask Patient pre-procedure mental status: anesthetized Single lumen [id number] catheter system, 20 g, 1/2 in length, in right hand Insertion attempts: 1 Juaquin Rueda MD [place] ANESTHESIA * Block - Lower Extremity (11/05/2024 2:13 PM EST) Only the most recent of2 resultswithin the time period is included. Narrative Juaquin Rueda MD - 11/05/2024 2:13 PM EST Juaquin Rueda MD ? 11/05/2024 ??2:14 PM Anesthesia Procedure Note - Lower Extremity Block Patient Name: Blas Genao : 1960 Patient location: pre-op Reason for [...] procedure. Patient tolerated well. Gaston Martinez MD [place] ANESTHESIA * Pathology (11/05/2024 2:11 PM EST) Report [facility] [id number] ?? CLIA ID [id number] [address] [place] [address] ??[phone] Surgical Pathology Report PATIENT NAME: BLAS GENAO [employer] REC NUMBER: [id number] (AGE): 1960 (Age: 63) SPECIMEN NUMBER: [id number] DATE OBTAINED: 11/05/2024 DIAGNOSIS LEFT LOWER EXTREMITY, BELOW KNEE AMPUTATION: ??SEVERE PERIPHERAL ARTERIOSCLEROSIS WITH CALCIFICATION, GANGRENOUS ULCER OF FOOT WITH SEVERE ACUTE OSTEOMYELITIS. NEGATIVE AMPUTATION MARGIN. 11/16/2024 Electronically Signed Out ? SENA SHABAZZ MD COMMENT [id number], [id number] Clinical Information and History: Acute osteomyelitis of [...] other masses or lesions are grossly identified. ??Bread Stacker sections are submitted in A1 - ?? [...] tibial artery margin (inked blue), en face [facility] Bone with Tissue Structure of left lower leg / Unknown 11/05/2024 2:11 PM EST Dallas Camejo MD PATHOLOGY/CYTOLOGY O RDERABLES HOSPITAL LAB See Below * ANES INTUBATION (11/05/2024 2:07 PM EST) Only the most recent of2 resultswithin the time period is included. Narrative Juaquin Rueda MD - 11/05/2024 2:07 PM EST Juaquin Rueda MD ? 11/05/2024 ??2:08 PM Anesthesia Procedure Note - ??LMA insertion Patient Name: Blas Genao : 1960 Patient location: OR Procedure indications: [...] baseline Complications: no complications Juaquin Rueda MD [place] ANESTHESIA * Creatine Kinase, Reflex to CKMB (11/05/2024 7:12 AM EST) Creatine Kinase (CK) 49 24 - 204 U/L 11/05/2024 8:18 AM EST [facility] Blood (Plasma/Serum) 11/05/2024 7:12 AM EST 11/05/2024 7:46 AM EST Chris Taylor MD LAB BLOOD ORDERABLES Performing Organization Address City/[facility]/[place] [address], [place] [address] * (ABNORMAL) PROTIME-INR (11/05/2024 7:12 AM EST) Only the most recent of3 resultswithin the time period is included. Anticoagulant Information not given 11/05/2024 7:47 AM EST [facility] Prothrombin Time (PT) 15.3(H) 10.0 - 13.5 seconds 11/05/2024 8:07 AM EST [facility] INR 1.3 11/05/2024 8:07 AM [facility] Comment:INR Therapeutic Rang es: Standard dose anticoagulant 2.0 to 3.0, High dose anticoagulant 2.5-3.5. Plasma specimen / Unknown 11/05/2024 7:12 AM EST 11/05/2024 7:46 AM EST Chris Taylor MD [place] [address], [place] [address] * ECHOCARDIOGRAM COMPREHENSIVE (11/04/2024 9:05 AM EST) [...] ?Compared to previous outside study report from [facility] on 08/05/2024, Mitral and tricuspid regurgitation [...] Compared to previous outside study report from [facility] on 08/05/2024, Mitral and tricuspid regurgitation were not previously reported. Ena Mtz MD CV ECHO ORDERABL ES * MRSA PCR Screen, Qualitative (11/03/2024 3:24 AM EST) Only the most recent of2 resultswithin the time period is included. MRSA Result Not Detected Not Detected 7:00 AM EST [facility] Comment:Performed by the Xpe rt MRSA NxG Assay X-Specimen 12 Specimen from nose / Unknown 11/03/2024 3:24 AM EST 11/03/2024 5:23 AM EST Kenzie PATTON MICROBIOLOGY - GENE RAL ORDERABLES [address] [address], [facility] [address] [place] [address] * (ABNORMAL) Blood Culture ID PCR Panel (11/02/2024 8:00 PM EST) [facility] BC ID PCR Result Summary Enterococcus faecalis Vancomycin resistance gene detected by molecular method. Please refer to detailed susceptibility results when available and suggest consultation with Infectious Diseases for management. 11/03/2024 6:06 PM [facility] BC ID PCR Result Summary Enterococcus faecium Vancomycin resistance gene detected by molecular method. Please refer to detailed susceptibility results when available and suggest consultation with Infectious Diseases for management. 11/03/2024 6:06 PM [facility] BC ID PCR Result Summary Methicillin Resistant Staph aureus (MRSA) 11/03/2024 6:06 PM [facility] Methicillin resistance gene mecA/C Detected(A) 11/03/2024 6:06 PM [facility] Vancomycin resistance genes Eugenia/B Detected(A) 11/03/2024 6:06 PM [facility] LABORATORY Enterococcus faecalis Detected(A) 11/03/2024 6:06 PM [facility] Enterococcus faecium Detected(A) 11/03/2024 6:06 PM [facility] Listeria monocytogenes Not Detected 11/03/2024 6:06 PM [facility] Staphylococcus Detected(A) 6:06 PM [facility] Staphylococcus aureus Detected(A) 11/03/2024 6:06 PM [facility] Staphylococcus epidermidis Not Detected 11/03/2024 6:06 PM [facility] Staphylococcus lugdunensis Not Detected 11/03/2024 6:06 PM [facility] Streptococcus Not Detected 6:06 PM [facility] Streptococcus agalactiae Not Detected 11/03/2024 6:06 PM [facility] Streptococcus pneumoniae Not Detected 11/03/2024 6:06 PM [facility] Streptococcus pyogenes Not Detected 11/03/2024 6:06 PM [facility] Acinetobacter calcoaceticus-bauma nnii complex Not Detected 11/03/2024 6:06 PM [facility] Bacteroides fragilis Not Detected 11/03/2024 6:06 PM EST [facility] Enterobacterales Not Detected 2024 6:06 PM [facility] Enterobacter cloacae complex Not Detected 11/03/2024 6:06 PM [facility] Escherichia coli Not Detected 2024 6:06 PM [facility] Klebsiella aerogenes Not Detected 11/03/2024 6:06 PM [facility] Klebsiella oxytoca Not Detected 01/2025 6:06 PM [facility] Klebsiella pneumoniae group Not Detected 11/03/2024 6:06 PM [facility] Proteus Not Detected 11/03/2024 6:06 PM [facility] Salmonella Not Detected 11/03/2024 6:06 PM [facility] Serratia marcescens Not Detected 01/2025 6:06 PM [facility] Haemophilus influenza Not Detected 11/03/2024 6:06 PM [facility] Neisseria meningitidis Not Detected 11/03/2024 6:06 PM [facility] Pseudomonas aeruginosa Not Detected 11/03/2024 6:06 PM [facility] Stenotrophomonas maltophilia Not Detected 11/03/2024 6:06 PM [facility] Fernanda albicans Not Detected 2024 6:06 PM [facility] Fernanda auris Not Detected 6:06 PM [facility] Fernanda glabrata Not Detected 2024 6:06 PM [facility] Fernanda krusei Not Detected 11/03/19 6:06 PM [facility] Fernanda parapsilosis Not Detected 11/03/2024 6:06 PM [facility] Cryptococcus neoformans/gattii Not Detected 11/03/2024 6:06 PM [facility] PCR ID Comment Antimicrobial resistance can occur via multiple mechanisms. A Not Detected result for antimicrobial resistance gene(s) does not indicate antimicrobial susceptibility. Subculturing is required for species identification and susceptibility testing of isolates. 11/03/2024 6:06 PM [facility] 11/02/2024 8:00 PM EST 11/02/2024 8:29 PM EST Kenzie PATTON MICROBIOLOGY - GENE RAL ORDERABLES [facility] [address] [place] [address], * Vitamin D, 25-Hydroxy (11/02/2024 8:00 PM EST) Vitamin D, 25-Hydroxy 50 30 - 100 ng/mL 11/02/2024 9:10 PM EST [facility] Blood (Plasma/Serum) 11/02/2024 8:00 PM EST 11/02/2024 8:23 PM EST Kenzie PATTON LAB BLOOD ORDERABLE S Performing Organization Address City/[facility]/[place] [address], [place] [address] * (ABNORMAL) TRANSFERRIN (11/02/2024 8:00 PM EST) Only the most recent of2 resultswithin the time period is included. Transferrin 178(L) 200 - 360 mg/dL 11/03/2024 12:04 AM [facility] Blood (Plasma/Serum) 11/02/2024 8:00 PM EST 11/02/2024 8:22 PM EST Kenzie PATTON LAB BLOOD ORDERABLE S Performing Organization Address City/[facility]/[place] [address], [place] [address] * (ABNORMAL) Prealbumin (11/02/2024 8:00 PM EST) Only the most recent of2 resultswithin the time period is included. Prealbumin 7(L) 20 - 40 mg/dL 11/03/2024 12:04 AM [facility] Blood (Plasma/Serum) 11/02/2024 8:00 PM EST 11/02/2024 8:22 PM EST Kenzie Mcknight Taylor PATTON LAB BLOOD ORDERABLE S Performing Organization Address [facility] [place] [address], [place] [address] * (ABNORMAL) Albumin (11/02/2024 8:00 PM EST) Albumin 3.2(L) 3.4 - 4.8 g/dL 11/03/2024 12:04 AM EST [facility] Blood (Plasma/Serum) 11/02/2024 8:00 PM EST 11/02/2024 8:22 PM EST Kenzie Mcknight Taylor PATTON LAB BLOOD ORDERABLE S Performing Organization Address [facility] [place] [address], [place] [address] * XR Foot 1 view-Left (11/02/2024 9:13 AM EST) Only the most recent of3 resultswithin the time period is included. Narrative OA - 11/02/2024 9:13 AM EST This exam was performed in office at [facility] and images reviewed by orthopedic provider. ??Any findings are documented within ambulatory encounter note on date of service. Dallas Camejo MD IMG DIAGNOSTIC IMAGI NG ORDERABLES Performing Organization Address [facility] Co de Phone Number OA * Heparin Assay (Anti Xa) (09/16/2024 9:00 AM EST) Only the most recent of8 resultswithin the time period is included. Anti Xa Blood/anticoagula nt ratio of specimen is unsatisfactory for testing, please repeat. IU/mL 09/16/2024 9:56 AM EST [facility] Anticoagulant IV HEPARIN, UNFRACTIONATED 09/16/2024 8:48 AM EST Blood Plasma specimen / Unknown 09/16/2024 9:00 AM EST 09/16/2024 9:25 AM EST Dallas Camejo MD LAB BLOOD ORDERABLES Performing Organization Address [facility] [place] [address], [place] [address] * Lactate (09/16/2024 8:47 AM EST) Lactic Acid 1.4 0.5 - 1.9 mmol/L 09/16/2024 10:01 AM EST [facility] Blood Plasma specimen / Unknown 09/16/2024 8:47 AM EST 09/16/2024 9:27 AM EST Valentine Rosado PA-C LAB BLOOD ORDERABLE S Performing Organization Address [facility] [place] [address], [place] [address] * AORTOGRAM- ABDOMINAL (09/15/2024 12:06 PM EST) Anatomical Region Laterality Modality Other Narrative 09/15/2024 4:09 PM EST This study has been auto finalized please see the Notes tabs in Chart Review for final documentation. Delbert Mcintosh MD CV ENDOVASCULAR PAMELA BUCK * Partial Thromboplastin Time (PTT) (09/13/2024 3:46 PM EST) Anticoagulant IV HEPARIN, UNFRACTIONATED 09/13/2024 3:32 PM EST Partial Thromboplastin Time (PTT) 35 25 - 36 seconds 09/13/2024 4:18 PM EST [facility] Blood Plasma specimen / Unknown 09/13/2024 3:46 PM EST 09/13/2024 4:00 PM EST Alice Dobbins PA-C LAB BLOOD ORDERABLES Performing Organization Address [facility] [place] [address], [place] [address] * Vas Arterial Duplex Leg-Limited Bilateral (09/13/2024 1:40 PM EST) Anatomical Region Laterality Modality Ultrasound 09/13/2024 11:3 0 AM EST Narrative 09/13/2024 1:54 PM EST Table formatting from the original result was not included. ?? Department: [facility] Patient: [id number] (GENAOBLAS) ?? Patient Location: [place] [address] CPT Code: 21866 ICD-9: ?? Referring Physician: NOE Jorge Duplex scan of the right common femoral artery demonstrates a normal Doppler waveform, not consistent with inflow disease. The proximal superficial femoral, profunda, and popliteal arteries are patent with normal Doppler waveforms. ?? Duplex scan of the left common femoral artery demonstrates a normal Doppler waveform, not consistent with inflow disease. The proximal superficial femoral, profunda, and popliteal arteries are patent with normal Doppler waveforms. ?? Please see arterial leg multi level pressures-bilateral study of 09/13/2024. Indications Left Atherosclerosis with Ulceration [I70.25]. Clinical Examination 63 year old male with history of afib, HTN, HLD, DM2, former smoker, right TMA presents s/p extensive left heel debridement and partial calcanectomy. Findings: ?? Segment ??Right ??Left ?? 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 Electronically Signed by: Delbert Mcintosh MD on 2024-09-13 01:54:51 PM End of Report Procedure Note Delebrt Mcintosh MD - 09/13/2024 Department: [facility] Patient: [id number] (BLAS GENAO) Patient Location: [place] [address] CPT Code: 69011 ICD-9: Referring Physician: NOE Jorge Duplex scan of the right common femoral artery demonstrates a normalDoppler waveform, not consistent with inflow disease. The proximalsuperficial femoral, profunda, and popliteal arteries are patent withnormal Doppler waveforms. Duplex scan of the left common femoral artery demonstrates a normalDoppler waveform, not consistent with inflow disease. The proximalsuperficial femoral, profunda, and popliteal arteries are patent withnormal Doppler waveforms. Please see arterial leg multi level pressures-bilateral study of09/13/2024. Indications Left Atherosclerosis with Ulceration [I70.25]. Clinical Examination 63 year old male with history of afib, HTN, HLD, DM2, former smoker,right TMA presents s/p extensive left heel debridement and partialcalcanectomy. 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 ?? Department: [facility] Patient: [id number] (BLAS GENAO) ?? Patient Location: [place] [address] CPT Code: 95870 ICD-9: ?? Referring Physician: NOE Jorge Right lower extremity pulse volume recordings are consistent with tibial vessel arterial occlusive disease. Pressure measurements and ALIX are unobtainable due to non-compressible (calcific) vessels. Findings are consistent with arterial occlusive disease. Although the left lower extremity ALIX (0.98) is within normal limits, pulse volume recordings are consistent with tibial vessel arterial occlusive disease. Pressure measurements are likely unreliable due to non-compressible (calcific) vessels. Findings are consistent with arterial occlusive disease. Please see arterial duplex leg-bilateral limited study of 09/13/2024. ?? Indications Left Atherosclerosis with Ulceration [I70.25]. Clinical Examination 63 year old male with history of afib, HTN, HLD, DM2, former smoker, right TMA presents s/p extensive left heel debridement and partial calcanectomy. Brachial Pressure: Right rstd/Left 121/ Findings: ?? Segment ??Right ??Left ?? Pressure ??Pressure ??ALIX Brachial Artery ??rstd ??121 ?? Thigh ?>200 ?? Calf ?159 ??1.31 Dorsalis Pedis Artery ??>200 ??>200 ?? Posterior Tibial Artery ??>200 ??118 ??0.98 ?? Electronically Signed by: Delbert Mcintosh MD on 2024-09-13 01:54:20 PM End of Report Procedure Note Delbert Mcintosh MD - 09/13/2024 Department: [facility] Patient: [id number] (BLAS GENAO) Patient Location: [place] [address] CPT Code: 70058 ICD-9: Referring Physician: NOE Jorge Right lower extremity pulse volume recordings are consistent with tibialvessel arterial occlusive disease. Pressure measurements and ALIX areunobtainable due to non-compressible (calcific) vessels. Findings areconsistent with arterial occlusive disease. Although the left lower extremity ALIX (0.98) is within normal limits,pulse volume recordings are consistent with tibial vessel arterialocclusive disease. Pressure measurements are likely unreliable due tonon-compressible (calcific) vessels. Findings are consistent with arterialocclusive disease. Please see arterial duplex leg-bilateral limited study of 09/13/2024. Indications Left Atherosclerosis with Ulceration [I70.25]. Clinical Examination 63 year old male with history of afib, HTN, HLD, DM2, former smoker,right TMA presents s/p extensive left heel debridement and partialcalcanectomy. Brachial Pressure: Right rstd/Left 121/ Findings: Segment Right Left Pressure Pressure ALIX Brachial Artery rstd 121 Thigh >200 Calf 159 1.31 Dorsalis Pedis Artery >200 >200 Posterior Tibial Artery >200 118 0.98 Electronically Signed by: Delbert Mcintosh MD on 2024-09-13 01:54:20 PM End of Report Noe Stephens PA-C VASCULAR LAB ORDERAB LES * CTA Abdomen/bilateral runoff w w/o contrast (09/10/2024 9:05 PM EST) Anatomical Region Laterality Modality CTA Body Computed Tomogra phy 09/10/2024 8:40 PM EST Impressions 09/23/2024 6:19 PM EST VASCULAR: Abdomen/Pelvis: No abdominal aortic aneurysm or dissection. Right Lower Extremity: Calcified tibial vessels. 1. ??Favor 3 vessel runoff to the foot. Calcified tibial vessels. 2. ??Occluded dorsalis pedis. Left Lower Extremity: Calcified tibial vessels. 1. ??At least two-vessel runoff to the foot via the anterior tibial and peroneal arteries. Posterior tibial artery is favored to be patent throughout its entire course until the medial malleolus, where it becomes occluded. 2. ??Occluded plantar arch. Dorsalis pedis patent. NONVASCULAR: Postsurgical changes of partial calcaneal resection with foci of subcutaneous gas along the resection margin as well as intraosseous. Osteomyelitis cannot be excluded. No drainable fluid collection. Fleischner guidelines were followed. Narrative 09/23/2024 6:19 PM EST EXAMINATION: CT ANGIOGRAPHY ABDOMEN, PELVIS AND LOWER EXTREMITY RUNOFF WITH CONTRAST CLINICAL INFORMATION: evaluate vasculature for possible need of bypass for lower extremity wounds/osteo COMPARISON: None TECHNIQUE: Initial noncontrast localizing engraver letter images were obtained. Timing boluses at the level of the celiac and popliteal arteries were calculated. ??Subsequently, arterial phase multidetector volumetric imaging was performed through the abdomen, pelvis and bilateral lower extremities following the administration of 100 mL Omnipaque 350 intravenous contrast. No contrast reaction reported Sagittal and coronal reformatted images were obtained on the technologist workstation. After extensive post-processing on a dedicated 3-D workstation, 3-D reformatted images were uploaded to PACS and reviewed as well. This CT examination was performed using dose optimization techniques as appropriate, variously including the following: *Automated exposure control *Adjustment of mA and/or kV according to patient size (this includes techniques or standardized protocols for targeted exams where dose is matched to indication/reason for exam; i.e. extremities or head) *Use of iterative reconstruction technique DLP: 1296 mGy-cm FINDINGS: VASCULAR: Heart: Normal in size. Mild coronary artery calcifications. Abdominal Aorta: Mild mixed atherosclerotic disease. No dissection or aneurysmal dilation. Normal aortic taper. Mesenteric Arteries: The celiac axis, superior mesenteric artery and inferior mesenteric artery are patent. Renal Artery: Single renal arteries bilaterally. Renal arteries are patent and without stenosis or other vascular anomaly. Right Lower Extremity: Right Common Iliac Artery: Patent. Mild mixed atherosclerotic disease resulting in no high grade stenosis. Right External Iliac Artery: Patent. Mild mixed atherosclerotic disease resulting in no high grade stenosis. Right Internal Iliac Artery: Patent. Common Femoral Artery: Patent. Mild mixed atherosclerotic disease resulting in no high grade stenosis. Superficial Femoral Artery: Patent. Mild mixed atherosclerotic disease resulting in no high grade stenosis. Profunda Femoris: Patent. Popliteal Artery: Patent. Mild mixed atherosclerotic disease resulting in no high grade stenosis. Tibioperoneal Trunk: Patent. Anterior Tibial Artery: Patent. Peroneal Artery: Patent. Posterior Tibial Artery: Patent. Dorsalis Pedis: Occluded. Plantar Arch: Patent. Left lower extremity: Left Common Iliac Artery: Patent. Mild mixed atherosclerotic disease resulting in no high grade stenosis. Left External Iliac Artery: Patent. Mild mixed atherosclerotic disease resulting in no high grade stenosis. Left Internal Iliac Artery: Patent. Common Femoral Artery: Patent. Mild mixed atherosclerotic disease resulting in no high grade stenosis. Superficial Femoral Artery: Patent. Mild mixed atherosclerotic disease resulting in no high grade stenosis. Profunda Femoris: Patent. Popliteal Artery: Patent. Mild mixed atherosclerotic disease resulting in no high grade stenosis. Tibioperoneal Trunk: Patent. Anterior Tibial Artery: Patent. Peroneal Artery: Patent. Posterior Tibial Artery: Occluded at the level of the malleolus. Dorsalis Pedis: Patent. Plantar Arch: Occluded. NONVASCULAR FINDINGS: ABDOMEN/PELVIS: Lung Bases: The visualized lung bases are clear. Liver: Homogeneous in attenuation. Normal in size. Gallbladder: Noninflamed. Biliary System: No intrahepatic or extrahepatic biliary dilation. Pancreas: Homogeneous in attenuation. Spleen: Normal in size. Genitourinary: Bilateral kidneys demonstrate symmetric enhancement. No perinephric fluid collection. No renal calculi. No hydroureteronephrosis. Adrenal Glands: Unremarkable. Reproductive: ??Prostate present. Gastrointestinal: The visualized alimentary tract is normal in course. Diverticular disease without diverticulitis. No evidence of obstruction. Appendix: ??The appendix is not visualized, however, no pericecal inflammatory changes are seen in the right lower quadrant. Peritoneum: No pneumoperitoneum. No intra-abdominal fluid collection. Lymph Nodes: No pathologically enlarged abdominal or pelvic lymph nodes. Soft Tissues/Musculoskeletal: Postsurgical changes of partial calcaneal resection with overlying foci of subcutaneous gas extending intraosseous, into the subtalar joint, and along the plantar fascia. No drainable fluid collection. Wound VAC is noted at the heel with a dorsal plaster cast. Postsurgical changes of right transmetatarsal amputation and arthrodesis of the hindfoot. Procedure Note Devon Vogt, DO - 09/23/2024 EXAMINATION: CT ANGIOGRAPHY ABDOMEN, PELVIS AND LOWER EXTREMITY RUNOFF WITH CONTRAST CLINICAL INFORMATION: evaluate vasculature for possible need of bypass for lower extremity wounds/osteo COMPARISON: None TECHNIQUE: Initial noncontrast localizing engraver letter images were obtained. Timing boluses at the level of the celiac and popliteal arteries were calculated. Subsequently, arterial phase multidetector volumetric imaging was performed through the abdomen, pelvis and bilateral lower extremities following the administration of 100 mL Omnipaque 350 intravenous contrast. No contrast reaction reported Sagittal and coronal reformatted images were obtained on the technologist workstation. After extensive post-processing on a dedicated 3-D workstation, 3-D reformatted images were uploaded to PACS and reviewed as well. This CT examination was performed using dose optimization techniques as appropriate, variously including the following: *Automated exposure control *Adjustment of mA and/or kV according to patient size (this includes techniques or standardized protocols for targeted exams where dose is matched to indication/reason for exam; i.e. extremities or head) *Use of iterative reconstruction technique DLP: 1296 mGy-cm FINDINGS: VASCULAR: Heart: Normal in size. Mild coronary artery calcifications. Abdominal Aorta: Mild mixed atherosclerotic disease. No dissection or aneurysmal dilation. Normal aortic taper. Mesenteric Arteries: The celiac axis, superior mesenteric artery and inferior mesenteric artery are patent. Renal Artery: Single renal arteries bilaterally. Renal arteries are patent and without stenosis or other vascular anomaly. Right Lower Extremity: Right Common Iliac Artery: Patent. Mild mixed atherosclerotic disease resulting in no high grade stenosis. Right External Iliac Artery: Patent. Mild mixed atherosclerotic disease resulting in no high grade stenosis. Right Internal Iliac Artery: Patent. Common Femoral Artery: Patent. Mild mixed atherosclerotic disease resulting in no high grade stenosis. Superficial Femoral Artery: Patent. Mild mixed atherosclerotic disease resulting in no high grade stenosis. Profunda Femoris: Patent. Popliteal Artery: Patent. Mild mixed atherosclerotic disease resulting in no high grade stenosis. Tibioperoneal Trunk: Patent. Anterior Tibial Artery: Patent. Peroneal Artery: Patent. Posterior Tibial Artery: Patent. Dorsalis Pedis: Occluded. Plantar Arch: Patent. Left lower extremity: Left Common Iliac Artery: Patent. Mild mixed atherosclerotic disease resulting in no high grade stenosis. Left External Iliac Artery: Patent. Mild mixed atherosclerotic disease resulting in no high grade stenosis. Left Internal Iliac Artery: Patent. Common Femoral Artery: Patent. Mild mixed atherosclerotic disease resulting in no high grade stenosis. Superficial Femoral Artery: Patent. Mild mixed atherosclerotic disease resulting in no high grade stenosis. Profunda Femoris: Patent. Popliteal Artery: Patent. Mild mixed atherosclerotic disease resulting in no high grade stenosis. Tibioperoneal Trunk: Patent. Anterior Tibial Artery: Patent. Peroneal Artery: Patent. Posterior Tibial Artery: Occluded at the level of the malleolus. Dorsalis Pedis: Patent. Plantar Arch: Occluded. NONVASCULAR FINDINGS: ABDOMEN/PELVIS: Lung Bases: The visualized lung bases are clear. Liver: Homogeneous in attenuation. Normal in size. Gallbladder: Noninflamed. Biliary System: No intrahepatic or extrahepatic biliary dilation. Pancreas: Homogeneous in attenuation. Spleen: Normal in size. Genitourinary: Bilateral kidneys demonstrate symmetric enhancement. No perinephric fluid collection. No renal calculi. No hydroureteronephrosis. Adrenal Glands: Unremarkable. Reproductive: Prostate present. Gastrointestinal: The visualized alimentary tract is normal in course. Diverticular disease without diverticulitis. No evidence of obstruction. Appendix: The appendix is not visualized, however, no pericecal inflammatory changes are seen in the right lower quadrant. Peritoneum: No pneumoperitoneum. No intra-abdominal fluid collection. Lymph Nodes: No pathologically enlarged abdominal or pelvic lymph nodes. Soft Tissues/Musculoskeletal: Postsurgical changes of partial calcaneal resection with overlying foci of subcutaneous gas extending intraosseous, into the subtalar joint, and along the plantar fascia. No drainable fluid collection. Wound VAC is noted at the heel with a dorsal plaster cast. Postsurgical changes of right transmetatarsal amputation and arthrodesis of the hindfoot. IMPRESSION: VASCULAR: Abdomen/Pelvis: No abdominal aortic aneurysm or dissection. Right Lower Extremity: Calcified tibial vessels. 1. Favor 3 vessel runoff to the foot. Calcified tibial vessels. 2. Occluded dorsalis pedis. Left Lower Extremity: Calcified tibial vessels. 1. At least two-vessel runoff to the foot via the anterior tibial and peroneal arteries. Posterior tibial artery is favored to be patent throughout its entire course until the medial malleolus, where it becomes occluded. 2. Occluded plantar arch. Dorsalis pedis patent. NONVASCULAR: Postsurgical changes of partial calcaneal resection with foci of subcutaneous gas along the resection margin as well as intraosseous. Osteomyelitis cannot be excluded. No drainable fluid collection. Fleischner guidelines were followed. Valentine PATTON-Annemarie IMG CT ORDERABLES * XR OR Mini C-Arm NR (09/10/2024 1:17 PM EST) Narrative RAZIA - 09/16/2024 8:14 AM EST This order has been auto-finalized and does not contain a result. [place] Camejo MD IMG FLUOROSCOPY PAMELA BUCK RAZIA [phone] * (ABNORMAL) ISTAT Glucose (09/10/2024 12:14 PM EST) Only the most recent of2 resultswithin the time period is included. Glucose, I-STAT 119(H) 65 - 99 mg/dL 09/13/2024 1:37 PM EST Blood specimen / Unknown 09/10/2024 12:14 PM EST 09/13/2024 1:37 PM EST [place] Camejo MD POCT ORDERABLES - [facility] See Below * Miscellaneous Anaerobic Culture (09/10/2024 11:39 AM EST) Culture No anaerobes isolated after 7 days 09/17/2024 3:31 PM EST [facility] Bone (Ankle, left) 09/10/2024 11:39 AM EST [place] Camejo MD MICROBIOLOGY - [facility] AL ORDERABLES [facility] [address] [place] [address], * (ABNORMAL) Miscellaneous Aerobic Culture (09/10/2024 11:39 AM EST) Culture Vancomycin Resistant Enterococcus faecium (VRE)(A) 09/15/2024 8:24 AM EST [facility] Culture Staphylococcus epidermidis(A) 09/15/2024 8:24 AM EST [facility] Bone (Ankle, left) 09/10/2024 11:39 AM EST Narrative Organism Antibiotic Method Susceptibility Vancomycin Resistant Enterococcus faecium (VRE) Ampicillin (REPORT) BACTERIAL PATTI AND INTERPRETATION (MCG/ML) >8: Resistant Vancomycin Resistant Enterococcus faecium (VRE) Gentamicin (REPORT) BACTERIAL PATTI AND INTERPRETATION (MCG/ML) <=500: Susceptible Vancomycin Resistant Enterococcus faecium (VRE) Linezolid (REPORT) BACTERIAL PATTI AND INTERPRETATION (MCG/ML) 4: Intermediate Vancomycin Resistant Enterococcus faecium (VRE) Penicillin (REPORT) BACTERIAL PATTI AND INTERPRETATION (MCG/ML) >16: Resistant Vancomycin Resistant Enterococcus faecium (VRE) Vancomycin (REPORT) BACTERIAL PATTI AND INTERPRETATION (MCG/ML) 16: Intermediate Vancomycin Resistant Enterococcus faecium (VRE) Daptomycin (REPORT) BACTERIAL PATTI AND INTERPRETATION (MCG/ML) 2: Susceptible dose dependent Comment: Daptomycin results confirmed by E-test. Isolates interpreted as susceptible dose dependent (SDD) [...] reach out to the Antimicrobial Stewardship team. Staphylococcus epidermidis Ampicillin/Sulbactam (REPORT) BACTERIAL PATTI AND INTERPRETATION (MCG/ML) <=2/1: Resistant Staphylococcus epidermidis Cefazolin (REPORT) BACTERIAL PATTI AND INTERPRETATION (MCG/ML) <=2: Resistant Staphylococcus epidermidis Clindamycin (REPORT) BACTERIAL PATTI AND INTERPRETATION (MCG/ML) >4: Resistant Comment:Clindamycin result was confirmed by D-test. Staphylococcus epidermidis Erythromycin (REPORT) BACTERIAL PATTI AND INTERPRETATION (MCG/ML) >4: Resistant Staphylococcus epidermidis Minocycline (REPORT) BACTERIAL PATTI AND INTERPRETATION (MCG/ML) <=1: Susceptible Staphylococcus epidermidis Oxacillin (REPORT) BACTERIAL PATTI AND INTERPRETATION (MCG/ML) >1: Resistant Staphylococcus epidermidis Tetracycline (REPORT) BACTERIAL PATTI AND INTERPRETATION (MCG/ML) <=0.5: Susceptible Staphylococcus epidermidis Vancomycin (REPORT) BACTERIAL PATTI AND INTERPRETATION (MCG/ML) 1: Susceptible Staphylococcus epidermidis Cefoxitin (REPORT) BACTERIAL PATTI AND INTERPRETATION (MCG/ML) Resistant Comment:Cefoxitin azevedo sceptibiltiy performed by disk diffusion. Staphylococcus epidermidis Trimethoprim/Sulfamet hoxazole (REPORT) BACTERIAL PATTI AND INTERPRETATION (MCG/ML) Susceptible Comment:Trimeth/Sulf a susceptibility performed by disk diffusion. [place] Camejo MD MICROBIOLOGY - GENER AL ORDERABLES Performing Organization Address City/[facility]/ZIP Co de Phone Number [facility] [address] [place] [address], * Fungal Culture, Other Than Blood (09/10/2024 11:39 AM EST) Culture No fungus isolated 09/24/2024 10:28 AM EST [facility] Bone (Ankle, left) 09/10/2024 11:39 AM EST [place] Camejo MD LAB AMB MICRO ORDERA BLES Performing Organization Address [facility]/ZIP Co de Phone Number [facility] [address] [place] [address], * IMAGING-SCAN (09/09/2024) Anatomical Region Laterality Modality Other Scan Cardiology HX AMB PROCEDURES * CARDIOLOGY PROCEDURE REPORT (09/09/2024) Anatomical Region Laterality Modality Other Narrative 09/09/2024 Ordered by an unspecified provider. Generic Provider [facility] ORDERABLES * (ABNORMAL) Hemoglobin A1c with Estimated Average Glucose (09/03/2024 2:40 PM EST) Hemoglobin A1C 8.7(H) <5.7 % 09/03/2024 7:00 PM EST [facility] Comment: A1c% ? Interpretation 5.7 - 6.0 ?Increase risk of diabetes 6.1 - 6.4 ?Higher risk of diabetes > or = 6.5 ?? 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 Advance Directive-Scan 11/10/2024 Revoc ation of Health Care Proxy HH 11/10/24 Advance Directive-Scan 11/10/2024 Healt h Care Proxy [facility] 11/10/24 * Full Code (Latest Code Status on File) Date Activated Date Inactivated Comments 11/17/2024 5:57 PM * Full Code Date Activated Date Inactivated Comments 11/05/2024 7:12 PM 11/17/2024 5:57 PM * Full Code Date Activated Date Inactivated Comments 11/02/2024 6:23 PM 11/05/2024 7:12 PM * Full Code Date Activated Date Inactivated Comments 09/15/2024 2:13 PM 11/02/2024 6:11 PM * Full Code Date Activated Date Inactivated Comments 09/10/2024 3:13 PM 09/15/2024 2:13 PM Healthcare Agents on File Name Relationship Healthcare Agent Relationship Communication Blas(SON) Sebastien Healthcare insurance claims representative 1. Health Care Bread Stacker Jessica Mello Healthcare insurance claims representative 1. Health Care Bread Stacker Care Teams Manager Express Relationship Specialty Start Date End Date Lee Fabian MD [address] [place] [id number] PCP - General Internal Medicine 09/02/24 Vitaliy Fields MD [address] [place] [id number] Cardiovascular Disease 09/02/24 [place] Camejo MD [address] [place] [address] Surgery, Orthopedic 09/02/24 Rolando Lopez MD [address] [place] [address] Transplant - [address] [place] [address] Physician Nephrology 09/02/24 Cesar Fair MD [address] [place] [id number] Surgery, Cardiac 11/08/24 Daisy Her, PT [address] [address] Operations InternScratcher [facility] 11/18/24
--- OUTSIDE RECORDS SUMMARY | 2024-12-02 10:43 | XMS_ITS | Encounter Summary ---
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 (CMS/HCC) Procedures Wound Snap Vacuum Diabetic Ulcer Left;Plantar Heel Jose Murguia PA [address] [place] [address] Phone: tel: fax: Referral ID Status Reason Start Date Expiration Date V isits Requested Visits Authorized [id number] Pending Review 10/27/2024 10/27/2025 1 1 Reason for Visit * Reason Comments Wound Care Encounter Details Date Type Department Care Team (Late st Contact Info) Description 10/27/2024 11:00 AM EST Office Visit [facility] [address] [place] [id number] Jose Murguia PA [address] [place] [address] Type 2 diabetes mellitus with foot ulcer [...] vascular disease, unspecified (CMS/HCC); Essential (primary) hypertension Social History Tobacco Use Types Packs/Day Years [...] Sign Reading Time Taken Comments Blood Pressure 141/66 10/27/2024 10:52 AM EST Pulse 79 10/27/2024 10:52 AM EST Temperature 37.3 ??C (99.1 ??F) 10/27/2024 10:[address] Respiratory Rate 18 10/27/2024 10:52 AM EST Oxygen Saturation 94% 10/27/2024 10:52 AM EST Inhaled Oxygen Concentration - - Weight - - Height - - Body Mass Index - - documented in this encounter Functional Status * Are you [...] Erik Rendon RN documented in this encounter Ordered Prescriptions Prescription Sig Dispense Quantity Refills Last Filled Start Date End Date cefpodoxime (VANTIN) 200 mg tablet Take 1 tablet (200 mg total) by mouth 2 (two) times a day for 14 days. 28 each 10/29/2024 5 doxycycline (MONODOX) 100 mg capsule Take 1 capsule (100 mg total) by mouth 2 (two) times a day for 14 days. Take with at least 8 ounces (large glass) of water, do not lie down for 30 minutes after 28 each 10/29/2024 5 documented in this encounter Progress Notes * Susan Peralta RN - 10/27/2024 11:00 AM EST PROVIDER ORDERS Go to ER if you are presenting with fever, chills, increased redness, pain, swelling, warmth aroundwound area and/or foul smelling odor. If you have any questions or concerns, please contact the [facility] at . It was noted today during your visit that your blood pressure is elevated. Close follow-up with PCPis recommended for possible evaluation of starting and or changing blood pressure medication. VisitVitals BP (!) 141/66 Pulse 79 Temp 37.3 ??C (99.1 ??F) Resp 18 SpO2 94% Smoking Status Every Day Follow up(s)/ Referrals: Others: Orthopedic: Follow up on November 09, [address] Borden -Podiatry: Follow up with Dr. Whelan on November 02, 2024 Residential: Home care: Driss BLACKMAN Additional Orders: Wound culture taken and sent during today's visit, Increase protein in your diet to help promote wound healing, Maintain good blood sugar control Edema Control: (If your compression wrap(s) feel to tight, please elevate your leg(s) about heart level. If your wrap(s) are becoming painful and/or you loose sensation of toes/ are having toe discoloration (a change from your baseline), please remove / unwrap compression and notify [facility] at . ) Caleb wrap to left lower extremity. Apply first thing in the morning prior to getting out of bed, OK to remove at bedtime. Ensure caleb wrap extends from just behind the toes to about 2 finger widths below the knee., Elevate legs above heart level as much as possible, Avoid standing for extended periods of time, 4 Caleb Wrap Offloading: -Open toe surgical shoe to bilateral feet -Knee scooter- wear protective padding -Non weight bearing to left foot per ortho Negative Pressure Wound Therapy: (If wound vac is off/non functioning for more than 2 hours, please remove vac dressing, apply a wetto dry dressing and notify your home care agency) Wound vac to wound continuously at 150mm/hg pressure, White and Black Foam combination, Change wound vac 3 times each week. -Apply alginate ag and a 2x2 gauze to the more proximal portion towards achilles to help with drainage. May cover with drape and change with vac changes. Cellular/Tissue Based Products: N/A Bathing / Showering / Hygiene: May shower with protection but DO NOT get wound dressing(s) wet. Protect dressing(s) with water repellant cover ( for example- large plastic bag or cast bag) and then may take shower. Non-wound Condition/ Other Skin Care: Moisturize skin daily, avoiding wound area Wound Location(s): Wound #1 (Right plantar foot): Cleanser: Cleanse with Normal Saline Periwound: N/A Topical: Medihoney gel- Apply a thin layer to wound bed. (Sample tube given. Available over the counter.ie. Manuka honey) Primary dressing: N/A Secondary dressinx4 woven gauze (non-sterile) Secure with: 4 conforming gauze roll , 1 paper tape Compression Therapy: 4 Caleb Wrap Dressing Change Frequency: Three times each week Wound #2 (Left plantar heel): Cleanser: Cleanse with Normal Saline Periwound: Apply Skin Prep to ariana wound Topical: N/A Primary dressing: Other: Wound Vac Secondary dressing: N/A Secure with: Other: Wound Vac Drape Compression Therapy: 4 Caleb Wrap Dressing Change Frequency: Three times each week Wound #3 (left great toe): Cleanser: Cleanse with Normal Saline Periwound: N/A Topical: Medihoney gel- Apply a thin layer to wound bed. (Sample tube given. Available over the counter.ie. Manuka honey) Primary dressing: N/A Secondary dressinx2 woven gauze ( non-sterile) Secure with: 4 conforming gauze roll , 1 paper tape Compression Therapy: 4 Caleb Wrap Dressing Change Frequency: Three times each week Wound #4 (Left 5th toe): Cleanser: Cleanse with Normal Saline Periwound: N/A Topical: Medihoney gel- Apply a thin layer to wound bed. (Sample tube given. Available over the counter.ie. Manuka honey) Primary dressing: N/A Secondary dressinx2 woven gauze ( non-sterile) Secure with: 4 conforming gauze roll , 1 paper tape Compression Therapy: 4 Caleb Wrap Dressing Change Frequency: Three times each week Wound #5 (Right proximal plantar foot): Cleanser: Cleanse with Normal Saline Periwound: N/A Topical: Medihoney gel- Apply a thin layer to wound bed. (Sample tube given. Available over the counter.ie. 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 He was counseled regarding my impressions, instructions for management, and the importance of compliance with treatment. Follow up in about 1 week (around 11/03/2024) for Follow up, High Acuity, Wound Vac with POOJA Torres. >>>>>>>>>>>>>>>>>>>>>>>>>>>>>>>>>>>>>>>>>>>>>>>>>>> Vital Signs: Visit Vitals BP (!) 141/66 Pulse 79 Temp 37.3 ??C (99.1 ??F) Resp 18 Review of Systems: Review of Systems PHYSICAL EXAM Physical Exam WOUND ASSESSMENT If photograph of wound not visible on this note, please check under Media tab. Wound Diabetic Ulcer 03/02/24 Foot Right;Plantar (Active) Date First Assessed/Time First Assessed: 03/02/24 0800 Primary Wound Type: Diabetic Ulcer Wound Approximate Age at First Assessment (Weeks): 22 weeks Hand Hygiene Completed: Yes Diabetic Ulcer Grading: Grade 1 Location: (c) Foot Wound Location ... Assessments 08/03/2024 3:21 PM 10/27/2024 11:01 AM Wound Image Wound Bed Tissue Assessment -- Red Ariana-Wound Assessment -- Callused Shape -- Irregular Wound Length (cm) -- 0.7 cm Wound Width (cm) -- 0.5 cm Wound Surface Area (cm^2) -- 0.35 cm^2 Wound Depth (cm) -- 0.2 cm Wound Volume (cm^3) -- 0.07 cm^3 Wound Healing % -- -367 Drainage Description -- Serosanguineous Drainage Amount -- Small Treatments -- Cleansed Dressing Status -- Removed Wound Bed Granulation (%) -- 100 % Wound Bed Epithelialization (%) -- 0 % Wound Bed Slough (%) -- 0 % Wound Bed Eschar (%) -- 0 % Tunneling -- 0 cm Undermining -- 0 cm Edges -- Attached edges;Well-defined edges Inactive Orders Date Order Priority Status Authorizing Provider 10/20/24 1118 Debridement Diabetic Ulcer Right;Plantar Foot (1st met, TMA hx) Routine Completed POOJA Conley 10/13/24 1213 Debridement Diabetic Ulcer Right;Plantar Foot (1st met, TMA hx) Routine Completed POOJA Conley 10/06/24 1240 Debridement Diabetic Ulcer Right;Plantar Foot (1st met, TMA hx) Routine Completed POOJA Conley 08/18/24 1225 Wound dressing (Aquacel ag packing, med mepilex) q3 days Routine Discontinued POOJA Bowers 08/17/245 Wound Care Inpatient Follow-Up 2 Wounds Associated Routine Completed POOJA Yeh - Reason for Consult?: diabetic ulcer 08/10/24 1506 Debridement Diabetic Ulcer Right;Plantar Foot (1st met) Routine Completed POOJA Conley 08/03/24 1551 Debridement Diabetic Ulcer Right;Plantar Foot (1st met) Routine Completed POOJA Conley Wound Diabetic Ulcer 08/03/24 Heel Left;Plantar (Active) Date First Assessed/Time First Assessed: 08/03/24 1514 Primary Wound Type: Diabetic Ulcer Present on Admission: Yes Wound Approximate Age at First Assessment (Weeks): (c) 3 weeks Hand Hygiene Completed: Yes Diabetic Ulcer Grading: Grade 3 Locat... Assessments 08/03/2024 3:17 PM 10/27/2024 11:13 AM Wound Image Wound Bed Tissue Assessment Sloughing Red;Sloughing Ariana-Wound Assessment Blistered;Callused;Dry Macerated Shape -- Irregular Wound Length (cm) 1 cm 11.6 cm Wound Width (cm) 1.1 cm 6 cm Wound Surface Area (cm^2) 1.1 cm^2 69.6 cm^2 Wound Depth (cm) 0.1 cm 1.6 cm Wound Volume (cm^3) 0.11 cm^3 111.36 cm^3 Wound Healing % -- -[id number] Drainage Description Serosanguineous Serosanguineous Drainage Amount Moderate Moderate Treatments -- Cleansed Dressing -- Negative pressure wound therapy Dressing Status Removed Removed Wound Bed Granulation (%) 0 % 50 % Wound Bed Epithelialization (%) 0 % 0 % Wound Bed Slough (%) 100 % 50 % Wound Bed Eschar (%) 0 % 0 % Tunneling 0 cm 0 cm Undermining 3.1 cm 2.3 cm Underming Start Clock Position of Wound 12 o'clock 6 o'clock Underming End Clock Position of Wound 12 o'clock 10 o'clock Edges Not attached Well-defined edges Inactive Orders Date Order Priority Status Authorizing Provider 10/20/24 1120 Debridement Diabetic Ulcer Left;Plantar Heel Routine Completed POOJA Conley 10/20/24 1103 Wound Snap Vacuum Diabetic Ulcer Left;Plantar Heel Routine Completed POOJA Conley 10/13/24 1215 Debridement Diabetic Ulcer Left;Plantar Heel Routine Completed POOJA Conley 10/06/24 1243 Debridement Diabetic Ulcer Left;Plantar Heel Routine Completed POOJA Conley 08/18/24 1225 Wound dressing (Betadine soaked kerlix, abd pad, kerlix roll) Daily Routine Discontinued POOJA Bowers 08/17/242044 Wound Care Inpatient Follow-Up 2 Wounds Associated Routine Completed POOJA Yeh - Reason for Consult?: diabetic ulcer 08/10/24 1507 Debridement Diabetic Ulcer Left;Plantar Heel Routine Completed POOJA Conley 08/03/24 1552 Debridement Diabetic Ulcer Left;Plantar Heel Routine Completed POOJA Conley Wound Diabetic Ulcer 10/06/24 Toe D1, Great Left (Active) Date First Assessed: 10/06/24 Primary Wound Type: Diabetic Ulcer Wound Approximate Age at First Assessment (Weeks): 1 weeks Hand Hygiene Completed: Yes Diabetic Ulcer Grading: Grade 1 Location: Toe D1, Great Wound Location Orientation: Left Assessments 10/06/2024 11:53 AM 10/27/2024 11:21 AM Wound Image Wound Bed Tissue Assessment Yellow Sloughing Ariana-Wound Assessment Dry Scarred Shape -- Irregular Wound Length (cm) 1 cm 0.8 cm Wound Width (cm) 0.8 cm 0.8 cm Wound Surface Area (cm^2) 0.8 cm^2 0.64 cm^2 Wound Depth (cm) 0.1 cm 0.1 cm Wound Volume (cm^3) 0.08 cm^3 0.064 cm^3 Wound Healing % -- 20 Drainage Description Serous Serous Drainage Amount Small Small Treatments Cleansed Cleansed Dressing Status Removed Removed Wound Bed Granulation (%) 0 % 0 % Wound Bed Epithelialization (%) -- 0 % Wound Bed Slough (%) 100 % 100 % Wound Bed Eschar (%) 0 % 0 % Tunneling 0 cm 0 cm Undermining 0 cm 0 cm Edges Attached edges Attached edges;Well-defined edges Non-staged Wound Description Partial thickness -- No associated orders. Wound Diabetic Ulcer 10/06/24 Toe D5, Fifth Left (Active) Date First Assessed: 10/06/24 Primary Wound Type: Diabetic Ulcer Present on Admission: Yes Wound Approximate Age at First Assessment (Weeks): 1 weeks Hand Hygiene Completed: Yes Diabetic Ulcer Grading: Unknown Location: Toe D5, Fifth Wound Loc... Assessments 10/06/2024 11:55 AM 10/27/2024 11:21 AM Wound Image Wound Bed Tissue Assessment Brown Sloughing Ariana-Wound Assessment Dry Scarred Shape -- Oval Wound Length (cm) 1.2 cm 1 cm Wound Width (cm) 0.7 cm 0.5 cm Wound Surface Area (cm^2) 0.84 cm^2 0.5 cm^2 Wound Depth (cm) 0.1 cm 0.1 cm Wound Volume (cm^3) 0.084 cm^3 0.05 cm^3 Wound Healing % -- 40 Drainage Amount None None Treatments Cleansed Cleansed Dressing Status Removed Removed Wound Bed Granulation (%) 0 % 0 % Wound Bed Epithelialization (%) -- 0 % Wound Bed Slough (%) 0 % 100 % Wound Bed Eschar (%) 100 % 0 % Tunneling 0 cm 0 cm Undermining 0 cm 0 cm Edges Attached edges Attached edges;Well-defined edges No associated orders. Wound Diabetic Ulcer 10/06/24 Foot Right;Proximal;Plantar (Active) Date First Assessed: 10/06/24 Primary Wound Type: Diabetic Ulcer Present on Admission: Yes Wound Approximate Age at First Assessment (Weeks): 5 weeks Hand Hygiene Completed: Yes Diabetic Ulcer Grading: Grade 1 Location: Foot Wound Location Curtis... Assessments 10/06/2024 12:07 PM 10/27/2024 11:03 AM Wound Image Wound Bed Tissue Assessment Red Sloughing Ariana-Wound Assessment Macerated Callused Wound Length (cm) 1.4 cm 0.6 cm Wound Width (cm) 0.9 cm 0.4 cm Wound Surface Area (cm^2) 1.26 cm^2 0.24 cm^2 Wound Depth (cm) 0.3 cm 0.1 cm Wound Volume (cm^3) 0.378 cm^3 0.024 cm^3 Wound Healing % -- 94 Drainage Description Serosanguineous Serosanguineous Drainage Amount Small Small Treatments Cleansed Cleansed Dressing Status Removed Removed Wound Bed Granulation (%) 100 % 0 % Wound Bed Epithelialization (%) -- 0 % Wound Bed Slough (%) 0 % 100 % Wound Bed Eschar (%) 0 % 0 % Tunneling 0 cm 0 cm Undermining 0 cm 0 cm Edges Attached edges Attached edges;Well-defined edges Non-staged Wound Description Full thickness -- Inactive Orders Date Order Priority Status Authorizing Provider 10/20/24 1119 Debridement Diabetic Ulcer Right;Proximal;Plantar Foot Routine Completed POOJA Conley 10/13/24 1214 Debridement Diabetic Ulcer Right;Proximal;Plantar Foot Routine Completed POOJA Conley 10/06/24 1241 Debridement Diabetic Ulcer Right;Proximal;Plantar Foot Routine Completed POOJA Conley Wound Skin Tear 10/20/24 Arm Left;Lower;Posterior (Active) Date First Assessed: 10/20/24 Primary Wound Type: Skin Tear Wound Approximate Age at First Assessment (Weeks): (c) 0 weeks Hand Hygiene Completed: Yes Location: Arm Wound Location Orientation: Left;Lower;Posterior Assessments 10/20/2024 10:56 AM 10/27/2024 10:54 AM Wound Image Wound Bed Tissue Assessment Stanford Epithelialization Ariana-Wound Assessment Dry Scarred Shape Irregular -- Wound Length (cm) 4.6 cm 0 cm Wound Width (cm) 1 cm 0 cm Wound Surface Area (cm^2) 4.6 cm^2 0 cm^2 Wound Depth (cm) 0.1 cm 0 cm Wound Volume (cm^3) 0.46 cm^3 0 cm^3 Wound Healing % -- 100 Drainage Description Serosanguineous -- Drainage Amount Moderate None Treatments Cleansed -- Dressing -- Open to air Wound Bed Granulation (%) 100 % 0 % Wound Bed Epithelialization (%) 0 % 100 % Wound Bed Slough (%) 0 % 0 % Wound Bed Eschar (%) 0 % 0 % Tunneling 0 cm 0 cm Undermining 0 cm 0 cm Edges Attached edges -- Non-staged Wound Description Full thickness -- No associated orders. Procedure Note: Wound Snap Vacuum Diabetic Ulcer Left;Plantar Heel Date/Time: 10/27/2024 11:38 AM Performed by: Shalini Duque RN Authorized by: POOJA Conley Associated wounds: Wound Diabetic Ulcer 08/03/24 Heel Left;Plantar Consent: Consent obtained: Verbal Consent given by: Patient Risks discussed: Infection and pain Alternatives discussed: Delayed treatment Felicity protocol: Procedure explained and questions answered to patient or proxy's satisfaction: yes Relevant documents present and verified: yes Patient identity confirmed: Verbally with patient Indications: Indications: Open Wound Pre-procedure details: Skin preparation: Sterile normal saline Sedation: Sedation type: None Anesthesia: Anesthesia method: Topical application Procedure specific details: Applied white foam to undermining. Black foam to base of wound. Alginate ag and 2x2 gauze covered with drape to the more proximal portion of the wound. Vac set to 150mmHg continuous. Post-procedure details: Procedure completion: Tolerated PROVIDER ORDERS There are no Patient Instructions on file for this visit. 10/27/2024 11:38 AM CON Peralta RN Disclaimer: Speech recognition software was utilized to dictate portions of this document. Errors in customs patrol officer may be present. Please reach out to me if any questions. * POOJA Conley - 10/27/2024 11:00 AM ESTAssociated Order(s): Debridement Diabetic Ulcer Right;Plantar Foot (1st met, TMA hx); Debridement Diabetic Ulcer Right;Proximal;Plantar Foot; Debridement Diabetic Ulcer Left;Plantar Heel; DebridementDiabetic Ulcer Left Toe D1, Great; Debridement Diabetic Ulcer Left Toe D5, Fifth Post-Procedure Diagnose(s): Type 2 diabetes mellitus with foot ulcer (CODE) (CMS/HCC); Non-pressurechronic ulcer of other part of right foot with fat layer exposed (CMS/HCC); Non-healing surgical wound, subsequent encounter; Non- 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 with bone involvementwithout evidence of necrosis (CMS/HCC); Non-pressure chronic ulcer of other part of left foot with fat layer exposed (CMS/HCC) Images from the original note were not included. [facility] [place] [place] [address] Office Visit Visit Date: 10/27/2024 Patient Name: Luca Crowe Date of : 1960 PCP: Lee Fabian MD HPI: Luca Crowe is a 63 y.o. male who presents to the to the wound care center for follow up bilateral lower leg wounds. 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 Patient is 2 wounds located plantar aspect of the right foot. Currently using wound VAC and was seenby orthopedic surgery yesterday. Possible debridement remove meant of the flap of the left calcaneal area is an option that was discussed with orthopedics. Patient also has a small scrape to his leftforearm secondary to trauma. Has no other complaints at this time. Patient returns for wound care follow-up. Patient has a follow-up appointment planned with podiatryand his orthopedic surgeon within the month. Patient denies any new complaints difficult occultly offloading right extremity as he uses a knee scooter secondary to calcaneus wound on the left. Patient is currently off oral antibiotics. Assessment and Plan: Type 2 diabetes mellitus with foot ulcer (CODE) (CMS/HCC) (Primary) - Culture wound with gram stain - Wound Snap Vacuum Diabetic Ulcer Left;Plantar Heel - Debridement Diabetic Ulcer Right;Plantar Foot (1st met, TMA hx) - Debridement Diabetic Ulcer Right;Proximal;Plantar Foot - Debridement Diabetic Ulcer Left;Plantar Heel - Debridement Diabetic Ulcer Left Toe D1, Great - Debridement Diabetic Ulcer Left Toe D5, Fifth ISTAP type 3 skin tear of left forearm Non-healing surgical wound, subsequent encounter - Wound Snap Vacuum Diabetic Ulcer Left;Plantar Heel - Debridement Diabetic Ulcer Left;Plantar Heel Non-pressure chronic ulcer of other part of right foot with fat layer exposed (CMS/HCC) - Debridement Diabetic Ulcer Right;Plantar Foot (1st met, TMA hx) - Debridement Diabetic Ulcer Right;Proximal;Plantar Foot 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 Will continue with wound VAC to the left heel. Patient has follow-up planned with orthopedics and podiatry. Will continue with Medihoney gel to the plantar aspect of the right foot and the dorsum of the left foot. Flap in the left calcaneus wound is still present. Wound is to bone. Removal of flap possibly by orthopedics and reapplication of the wound VAC may be beneficial. Patient still expressed interest in hyperbaric treatment. Patient will continue to be evaluated for possibility of hyperbaric treatment. Wound culture of the left calcaneal wound is been obtained. The wound will be continually assessed for the presence of infection. If infection is suspected, appropriate intervention or referral to infection disease specialist will be considered. The patient has been educated concerning the need for increased protein to aid wound healing. Luca Crowe elevated blood pressure reviewed with patient. Patient understands the need to follow-up closely with PCP. All questions were answered to his satisfaction. He was counseled regarding my impressions, instructions for management, and the importance of compliance with treatment. Follow up in about 1 week (around 11/03/2024) for Follow up, High Acuity, Wound Vac with POOJA Torres. 10/29/2024 1:46 PM secondary wound culture will place patient on doxycycline x 14 days and cefpodoxime x 14 days. CBC still pending at this time. Case discussed with Dr. Dr. Collins agrees with treatment and plan. 11/04/[address] Camejo of orthopedics at [facility]. Patient currently admitted atthis time to [facility] for below the knee amputation. Culture results was reviewed with . Likely plan follow-up wound care once discharged from the hospital. >>>>>>>>>>>>>>>>>>>>>>>>>>>>>>>>>>>>>>>>>>>>>>>>>>> Vital Signs: Visit Vitals BP (!) 141/66 Pulse 79 Temp 37.3 ??C (99.1 ??F) Resp 18 Review of Systems: Review of Systems Constitutional: Negative for chills and fever. Skin: Positive for wound. PHYSICAL EXAM Physical Exam Vitals and nursing note reviewed. Constitutional: Appearance: Normal appearance. HENT: Head: Normocephalic. Eyes: Extraocular Movements: Extraocular movements intact. Pulmonary: Effort: Pulmonary effort is normal. Skin: General: Skin is warm. Comments: See wound details in assessment and procedure note. Right foot to plantar wounds noted. Fair amount of callus in the distal wound is noted. No externalerythema induration concerning for cellulitis. Plantar wound proximal some slight undermining notedno external erythema induration. Right foot great toe ulcers noted. Biofilm sloth is noted. No external erythema induration wound edges are intact. Fifth toe left foot ulceration is noted. No external erythema induration is noted. 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 Some necrotic tissue is noted within the wound. Wound is to the bone. Flap is noted. External skin does not appear excoriated from wound VAC. Some odor is noted at this time. Neurological: General: No focal deficit present. Mental Status: He is alert and oriented to person, place, and time. Psychiatric: Mood and Affect: Mood normal. WOUND ASSESSMENT If photograph of wound not visible on this note, please check under Media tab. Wound Diabetic Ulcer 03/02/24 Foot Right;Plantar (Active) Date First Assessed/Time First Assessed: 03/02/24 0800 Primary Wound Type: Diabetic Ulcer Wound Approximate Age at First Assessment (Weeks): 22 weeks Hand Hygiene Completed: Yes Diabetic Ulcer Grading: Grade 1 Location: (c) Foot Wound Location ... Assessments 08/03/2024 3:21 PM 10/27/2024 11:01 AM Wound Image Wound Bed Tissue Assessment -- Red Ariana-Wound Assessment -- Callused Shape -- Irregular Wound Length (cm) -- 0.7 cm Wound Width (cm) -- 0.5 cm Wound Surface Area (cm^2) -- 0.35 cm^2 Wound Depth (cm) -- 0.2 cm Wound Volume (cm^3) -- 0.07 cm^3 Wound Healing % -- -367 Drainage Description -- Serosanguineous Drainage Amount -- Small Treatments -- Cleansed Dressing Status -- Removed Wound Bed Granulation (%) -- 100 % Wound Bed Epithelialization (%) -- 0 % Wound Bed Slough (%) -- 0 % Wound Bed Eschar (%) -- 0 % Tunneling -- 0 cm Undermining -- 0 cm Edges -- Attached edges;Well-defined edges Inactive Orders Date Order Priority Status Authorizing Provider 10/27/24 1140 Debridement Diabetic Ulcer Right;Plantar Foot (1st met, TMA hx) Routine Completed POOJA Conley 10/20/24 1118 Debridement Diabetic Ulcer Right;Plantar Foot (1st met, TMA hx) Routine Completed POOJA Conley 10/13/24 1213 Debridement Diabetic Ulcer Right;Plantar Foot (1st met, TMA hx) Routine Completed POOJA Conley 10/06/24 1240 Debridement Diabetic Ulcer Right;Plantar Foot (1st met, TMA hx) Routine Completed POOJA Conley 08/18/24 1225 Wound dressing (Aquacel ag packing, med mepilex) q3 days Routine Discontinued POOJA Bowers 08/17/245 Wound Care Inpatient Follow-Up 2 Wounds Associated Routine Completed POOJA Yeh - Reason for Consult?: diabetic ulcer 08/10/24 1506 Debridement Diabetic Ulcer Right;Plantar Foot (1st met) Routine Completed POOJA Conley 08/03/24 1551 Debridement Diabetic Ulcer Right;Plantar Foot (1st met) Routine Completed POOJA Conley Wound Diabetic Ulcer 08/03/24 Heel Left;Plantar (Active) Date First Assessed/Time First Assessed: 08/03/24 1514 Primary Wound Type: Diabetic Ulcer Present on Admission: Yes Wound Approximate Age at First Assessment (Weeks): (c) 3 weeks Hand Hygiene Completed: Yes Diabetic Ulcer Grading: Grade 3 Locat... Assessments 08/03/2024 3:17 PM 10/27/2024 11:13 AM Wound Image Wound Bed Tissue Assessment Sloughing Red;Sloughing Ariana-Wound Assessment Blistered;Callused;Dry Macerated Shape -- Irregular Wound Length (cm) 1 cm 11.6 cm Wound Width (cm) 1.1 cm 6 cm Wound Surface Area (cm^2) 1.1 cm^2 69.6 cm^2 Wound Depth (cm) 0.1 cm 1.6 cm Wound Volume (cm^3) 0.11 cm^3 111.36 cm^3 Wound Healing % -- [id number] Drainage Description Serosanguineous Serosanguineous Drainage Amount Moderate Moderate Treatments -- Cleansed Dressing -- Negative pressure wound therapy Dressing Status Removed Removed Wound Bed Granulation (%) 0 % 50 % Wound Bed Epithelialization (%) 0 % 0 % Wound Bed Slough (%) 100 % 50 % Wound Bed Eschar (%) 0 % 0 % Tunneling 0 cm 0 cm Undermining 3.1 cm 2.3 cm Underming Start Clock Position of Wound 12 o'clock 6 o'clock Underming End Clock Position of Wound 12 o'clock 10 o'clock Edges Not attached Well-defined edges Inactive Orders Date Order Priority Status Authorizing Provider 10/27/24 1142 Debridement Diabetic Ulcer Left;Plantar Heel Routine Completed POOJA Conley 10/27/24 1138 Wound Snap Vacuum Diabetic Ulcer Left;Plantar Heel Routine Completed POOJA Conley 10/20/24 1120 Debridement Diabetic Ulcer Left;Plantar Heel Routine Completed POOJA Conley 10/20/24 1103 Wound Snap Vacuum Diabetic Ulcer Left;Plantar Heel Routine Completed POOJA Conley 10/13/24 1215 Debridement Diabetic Ulcer Left;Plantar Heel Routine Completed POOJA Conley 10/06/24 1243 Debridement Diabetic Ulcer Left;Plantar Heel Routine Completed POOJA Conley 08/18/24 1225 Wound dressing (Betadine soaked kerlix, abd pad, kerlix roll) Daily Routine Discontinued POOJA Bowers 08/17/24 2045 Wound Care Inpatient Follow-Up 2 Wounds Associated Routine Completed POOJA Yeh - Reason for Consult?: diabetic ulcer 08/10/24 1507 Debridement Diabetic Ulcer Left;Plantar Heel Routine Completed POOJA Conley 08/03/24 1552 Debridement Diabetic Ulcer Left;Plantar Heel Routine Completed POOJA Conley Wound Diabetic Ulcer 10/06/24 Toe D1, Great Left (Active) Date First Assessed: 10/06/24 Primary Wound Type: Diabetic Ulcer Wound Approximate Age at First Assessment (Weeks): 1 weeks Hand Hygiene Completed: Yes Diabetic Ulcer Grading: Grade 1 Location: Toe D1, Great Wound Location Orientation: Left Assessments 10/06/2024 11:53 AM 10/27/2024 11:21 AM Wound Image Wound Bed Tissue Assessment Yellow Sloughing Ariana-Wound Assessment Dry Scarred Shape -- Irregular Wound Length (cm) 1 cm 0.8 cm Wound Width (cm) 0.8 cm 0.8 cm Wound Surface Area (cm^2) 0.8 cm^2 0.64 cm^2 Wound Depth (cm) 0.1 cm 0.1 cm Wound Volume (cm^3) 0.08 cm^3 0.064 cm^3 Wound Healing % -- 20 Drainage Description Serous Serous Drainage Amount Small Small Treatments Cleansed Cleansed Dressing Status Removed Removed Wound Bed Granulation (%) 0 % 0 % Wound Bed Epithelialization (%) -- 0 % Wound Bed Slough (%) 100 % 100 % Wound Bed Eschar (%) 0 % 0 % Tunneling 0 cm 0 cm Undermining 0 cm 0 cm Edges Attached edges Attached edges;Well-defined edges Non-staged Wound Description Partial thickness -- Inactive Orders Date Order Priority Status Authorizing Provider 10/27/24 1143 Debridement Diabetic Ulcer Left Toe D1, Great Routine Completed POOJA Conley Wound Diabetic Ulcer 10/06/24 Toe D5, Fifth Left (Active) Date First Assessed: 10/06/24 Primary Wound Type: Diabetic Ulcer Present on Admission: Yes Wound Approximate Age at First Assessment (Weeks): 1 weeks Hand Hygiene Completed: Yes Diabetic Ulcer Grading: Unknown Location: Toe D5, Fifth Wound Loc... Assessments 10/06/2024 11:55 AM 10/27/2024 11:21 AM Wound Image Wound Bed Tissue Assessment Brown Sloughing Ariana-Wound Assessment Dry Scarred Shape -- Oval Wound Length (cm) 1.2 cm 1 cm Wound Width (cm) 0.7 cm 0.5 cm Wound Surface Area (cm^2) 0.84 cm^2 0.5 cm^2 Wound Depth (cm) 0.1 cm 0.1 cm Wound Volume (cm^3) 0.084 cm^3 0.05 cm^3 Wound Healing % -- 40 Drainage Amount None None Treatments Cleansed Cleansed Dressing Status Removed Removed Wound Bed Granulation (%) 0 % 0 % Wound Bed Epithelialization (%) -- 0 % Wound Bed Slough (%) 0 % 100 % Wound Bed Eschar (%) 100 % 0 % Tunneling 0 cm 0 cm Undermining 0 cm 0 cm Edges Attached edges Attached edges;Well-defined edges Inactive Orders Date Order Priority Status Authorizing Provider 10/27/24 1143 Debridement Diabetic Ulcer Left Toe D5, Fifth Routine Completed POOJA Conley Wound Diabetic Ulcer 10/06/24 Foot Right;Proximal;Plantar (Active) Date First Assessed: 10/06/24 Primary Wound Type: Diabetic Ulcer Present on Admission: Yes Wound Approximate Age at First Assessment (Weeks): 5 weeks Hand Hygiene Completed: Yes Diabetic Ulcer Grading: Grade 1 Location: Foot Wound Location Curtis... Assessments 10/06/2024 12:07 PM 10/27/2024 11:03 AM Wound Image Wound Bed Tissue Assessment Red Sloughing Ariana-Wound Assessment Macerated Callused Wound Length (cm) 1.4 cm 0.6 cm Wound Width (cm) 0.9 cm 0.4 cm Wound Surface Area (cm^2) 1.26 cm^2 0.24 cm^2 Wound Depth (cm) 0.3 cm 0.1 cm Wound Volume (cm^3) 0.378 cm^3 0.024 cm^3 Wound Healing % -- 94 Drainage Description Serosanguineous Serosanguineous Drainage Amount Small Small Treatments Cleansed Cleansed Dressing Status Removed Removed Wound Bed Granulation (%) 100 % 0 % Wound Bed Epithelialization (%) -- 0 % Wound Bed Slough (%) 0 % 100 % Wound Bed Eschar (%) 0 % 0 % Tunneling 0 cm 0 cm Undermining 0 cm 0 cm Edges Attached edges Attached edges;Well-defined edges Non-staged Wound Description Full thickness -- Inactive Orders Date Order Priority Status Authorizing Provider 10/27/24 1141 Debridement Diabetic Ulcer Right;Proximal;Plantar Foot Routine Completed POOJA Conley 10/20/24 1119 Debridement Diabetic Ulcer Right;Proximal;Plantar Foot Routine Completed POOJA Conley 10/13/24 1214 Debridement Diabetic Ulcer Right;Proximal;Plantar Foot Routine Completed POOJA Conley 10/06/24 1241 Debridement Diabetic Ulcer Right;Proximal;Plantar Foot Routine Completed POOJA Conley Procedure Note: Debridement Diabetic Ulcer Right;Plantar Foot (1st met, TMA hx) Performed by: POOJA Conley Authorized by: POOJA Conley Associated wounds: Wound Diabetic Ulcer 03/02/24 Foot Right;Plantar Consent: Consent obtained: Verbal Consent given by: Patient Risks discussed: Yes Time out: Immediately prior to the procedure a time out was called Debridement Details: Performed by: POOJA Type: surgical Level: subcutaneous tissue Pain control: Lidocaine 4% Severity of Tissue Pre Debridement: Fat layer exposed Severity of Tissue Post Debridement: Fat layer exposed Time taken: 10/27/2024 11:01 AM Length (cm): 0.7 Width (cm): 0.5 Depth (cm): 0.2 Area (cm^2): 0.35 Time taken: 10/27/2024 11:02 AM Length (cm): 0.7 Width (cm): 0.5 Depth (cm): 0.2 Percent Debrided (%): 100 Surface Area (cm^2): 0.35 Area Debrided (cm^2): 0.35 Volume (cm^3): 0.07 Tissue and other material debrided: dermis, epidermis and subcutaneous tissue Devitalized tissue debrided: biofilm, callus and slough Instrument: Blade and forceps Amount of bleeding: small Hemostasis obtained with: Silver nitrate Procedural pain: 0 Post-procedural pain: 0 Response to treatment: Procedure was tolerated well Debridement Diabetic Ulcer Right;Proximal;Plantar Foot Performed by: POOJA Conley Authorized by: POOJA Conley Associated wounds: Wound Diabetic Ulcer 10/06/24 Foot Right;Proximal;Plantar Consent: Consent obtained: Verbal Consent given by: Patient Risks discussed: Yes Time out: Immediately prior to the procedure a time out was called Debridement Details: Performed by: POOJA Type: surgical Level: subcutaneous tissue Pain control: Lidocaine 4% Severity of Tissue Pre Debridement: Fat layer exposed Severity of Tissue Post Debridement: Fat layer exposed Time taken: 10/27/2024 11:03 AM Length (cm): 0.6 Width (cm): 0.4 Depth (cm): 0.1 Area (cm^2): 0.24 Time taken: 10/27/2024 11:04 AM Length (cm): 0.6 Width (cm): 0.4 Depth (cm): 0.1 Percent Debrided (%): 100 Surface Area (cm^2): 0.24 Area Debrided (cm^2): 0.24 Volume (cm^3): 0.02 Tissue and other material debrided: dermis, epidermis and subcutaneous tissue Devitalized tissue debrided: biofilm, callus and slough Instrument: Blade and forceps Amount of bleeding: small Hemostasis obtained with: Silver nitrate Procedural pain: 0 Post-procedural pain: 0 Response to treatment: Procedure was tolerated well Debridement Diabetic Ulcer Left;Plantar Heel Performed by: POOJA Conley Authorized by: POOJA Conley Associated wounds: Wound Diabetic Ulcer 08/03/24 Heel Left;Plantar Consent: Consent obtained: Verbal Consent given by: Patient Risks discussed: Yes Time out: Immediately prior to the procedure a time out was called Debridement Details: Performed by: POOJA Type: surgical Level: muscle Pain control: Lidocaine 4% Severity of Tissue Pre Debridement: Muscle involvement without necrosis Severity of Tissue Post Debridement: Muscle involvement without necrosis Time taken: 10/27/2024 11:13 AM Length (cm): 11.6 (Cluster 2) Width (cm): 6 Depth (cm): 1.6 Area (cm^2): 69.6 Time taken: 10/27/2024 11:14 AM Length (cm): 11.6 Width (cm): 6 Depth (cm): 1.6 Percent Debrided (%): 75 Surface Area (cm^2): 69.6 Area Debrided (cm^2): 52.2 Volume (cm^3): 111.36 Tissue and other material debrided: dermis, epidermis, muscle and subcutaneous tissue Devitalized tissue debrided: biofilm, necrotic debris and slough Instrument: Blade and forceps Amount of bleeding: small Hemostasis obtained with: Silver nitrate Procedural pain: 0 Post-procedural pain: 0 Response to treatment: Procedure was tolerated well Debridement Diabetic Ulcer Left Toe D1, Great Performed by: POOJA Conley Authorized by: POOJA Conley Associated wounds: Wound Diabetic Ulcer 10/06/24 Toe D1, Great Left Consent: Consent obtained: Verbal Consent given by: Patient Risks discussed: Yes Time out: Immediately prior to the procedure a time out was called Debridement Details: Performed by: POOJA Type: surgical Level: subcutaneous tissue Pain control: Lidocaine 4% Severity of Tissue Pre Debridement: Fat layer exposed Severity of Tissue Post Debridement: Fat layer exposed Time taken: 10/27/2024 11:21 AM Length (cm): 0.8 Width (cm): 0.8 Depth (cm): 0.1 Area (cm^2): 0.64 Time taken: 10/27/2024 11:22 AM Length (cm): 0.8 Width (cm): 0.8 Depth (cm): 0.1 Percent Debrided (%): 100 Surface Area (cm^2): 0.64 Area Debrided (cm^2): 0.64 Volume (cm^3): 0.06 Tissue and other material debrided: dermis, epidermis and subcutaneous tissue Devitalized tissue debrided: biofilm, exudate, fibrin and slough Instrument: Curette Amount of bleeding: none Hemostasis obtained with: Not applicable Procedural pain: 0 Post-procedural pain: 0 Response to treatment: Procedure was tolerated well Debridement Diabetic Ulcer Left Toe D5, Fifth Performed by: POOJA Conley Authorized by: POOJA Conley Associated wounds: Wound Diabetic Ulcer 10/06/24 Toe D5, Fifth Left Consent: Consent obtained: Verbal Consent given by: Patient Risks discussed: Yes Time out: Immediately prior to the procedure a time out was called Debridement Details: Performed by: POOJA Type: surgical Level: subcutaneous tissue Pain control: Lidocaine 4% Severity of Tissue Pre Debridement: Fat layer exposed Severity of Tissue Post Debridement: Fat layer exposed Time taken: 10/27/2024 11:21 AM Length (cm): 1 Width (cm): 0.5 Depth (cm): 0.1 Area (cm^2): 0.5 Time taken: 10/27/2024 11:22 AM Length (cm): 1 Width (cm): 0.5 Depth (cm): 0.1 Percent Debrided (%): 100 Surface Area (cm^2): 0.5 Area Debrided (cm^2): 0.5 Volume (cm^3): 0.05 Tissue and other material debrided: dermis, epidermis and subcutaneous tissue Devitalized tissue debrided: biofilm, exudate, fibrin and slough Instrument: Curette Amount of bleeding: none Hemostasis obtained with: Not applicable Procedural pain: 0 Post-procedural pain: 0 Response to treatment: Procedure was tolerated well PROVIDER ORDERS Patient Instructions PROVIDER ORDERS Go to ER if you are presenting with fever, chills, increased redness, pain, swelling, warmth aroundwound area and/or foul smelling odor. If you have any questions or concerns, please contact the [facility] at . It was noted today during your visit that your blood pressure is elevated. Close follow-up with PCPis recommended for possible evaluation of starting and or changing blood pressure medication. VisitVitals BP (!) 141/66 Pulse 79 Temp 37.3 ??C (99.1 ??F) Resp 18 SpO2 94% Smoking Status Every Day Follow up(s)/ Referrals: Others: Orthopedic: Follow up on November 09, [address] Borden -Podiatry: Follow up with Dr. Whelan on November 02, 2024 Residential: Home care: Driss BLACK[facility] Additional Orders: Wound culture taken and sent during today's visit, Increase protein in your diet to help promote wound healing, Maintain good blood sugar control Edema Control: (If your compression wrap(s) feel to tight, please elevate your leg(s) about heart level. If your wrap(s) are becoming painful and/or you loose sensation of toes/ are having toe discoloration (a change from your baseline), please remove / unwrap compression and notify [facility] at . ) Caleb wrap to left lower extremity. Apply first thing in the morning prior to getting out of bed, OK to remove at bedtime. Ensure caleb wrap extends from just behind the toes to about 2 finger widths below the knee., Elevate legs above heart level as much as possible, Avoid standing for extended periods of time, 4 Caleb Wrap Offloading: -Open toe surgical shoe to bilateral feet -Knee scooter- wear protective padding -Non weight bearing to left foot per ortho Negative Pressure Wound Therapy: (If wound vac is off/non functioning for more than 2 hours, please remove vac dressing, apply a wetto dry dressing and notify your home care agency) Wound vac to wound continuously at 150mm/hg pressure, White and Black Foam combination, Change wound vac 3 times each week. -Apply alginate ag and a 2x2 gauze to the more proximal portion towards achilles to help with drainage. May cover with drape and change with vac changes. Cellular/Tissue Based Products: N/A Bathing / Showering / Hygiene: May shower with protection but DO NOT get wound dressing(s) wet. Protect dressing(s) with water repellant cover ( for example- large plastic bag or cast bag) and then may take shower. Non-wound Condition/ Other Skin Care: Moisturize skin daily, avoiding wound area Wound Location(s): Wound #1 (Right plantar foot): Cleanser: Cleanse with Normal Saline Periwound: N/A Topical: [employer] gel- Apply a thin layer to wound bed. (Sample tube given. Available over the counter.ie. Manuka honey) Primary dressing: N/A Secondary dressinx4 woven gauze (non-sterile) Secure with: 4 conforming gauze roll , 1 paper tape Compression Therapy: 4 Caleb Wrap Dressing Change Frequency: Three times each week Wound #2 (Left plantar heel): Cleanser: Cleanse with Normal Saline Periwound: Apply Skin Prep to ariana wound Topical: N/A Primary dressing: Other: Wound Vac Secondary dressing: N/A Secure with: Other: Wound Vac Drape Compression Therapy: 4 Caleb Wrap Dressing Change Frequency: Three times each week Wound #3 (left great toe): Cleanser: Cleanse with Normal Saline Periwound: N/A Topical: Medihoney gel- Apply a thin layer to wound bed. (Sample tube given. Available over the counter.ie. Manuka honey) Primary dressing: N/A Secondary dressinx2 woven gauze ( non-sterile) Secure with: 4 conforming gauze roll , 1 paper tape Compression Therapy: 4 Caleb Wrap Dressing Change Frequency: Three times each week Wound #4 (Left 5th toe): Cleanser: Cleanse with Normal Saline Periwound: N/A Topical: Medihoney gel- Apply a thin layer to wound bed. (Sample tube given. Available over the counter.ie. Manuka honey) Primary dressing: N/A Secondary dressinx2 woven gauze ( non-sterile) Secure with: 4 conforming gauze roll , 1 paper tape Compression Therapy: 4 Caleb Wrap Dressing Change Frequency: Three times each week Wound #5 (Right proximal plantar foot): Cleanser: Cleanse with Normal Saline Periwound: N/A Topical: Medihoney gel- Apply a thin layer to wound bed. (Sample tube given. Available over the counter.ie. Manuka honey) Primary dressing: N/A Secondary dressinx4 woven gauze (non-sterile) Secure with: 4 conforming gauze roll , 1 paper tape Compression Therapy: 4 Caleb Wrap Dressing Change Frequency: Three times each week 10/28/2024 1:34 PM EST POOJA Victoria Disclaimer: Speech recognition software was utilized to dictate portions of this document. Errors in customs patrol officer may be present. Please reach out to me if any questions. * Shalini Duque RN - 10/27/2024 11:00 AM EST Wound #1 (Right plantar foot): Cleanser: Cleanse with Normal Saline Topical: Medihoney gel- Apply a thin layer to wound bed. (Sample tube given. Available over the counter.ie. Manuka honey) Secondary dressinx4 woven gauze (non-sterile) Secure with: 4 conforming gauze roll , 1 paper tape Compression Therapy: 4 Caleb Wrap Dressing Change Frequency: Three times each week Wound #2 (Left plantar heel): Cleanser: Cleanse with Normal Saline Periwound: Apply Skin Prep to ariana wound Primary dressing: Other: Wound Vac Secure with: Other: Wound Vac Drape Compression Therapy: 4 Caleb Wrap Dressing Change Frequency: Three times each week Wound #3 (left great toe): Cleanser: Cleanse with Normal Saline Topical: Medihoney gel- Apply a thin layer to wound bed. (Sample tube given. Available over the counter.ie. Manuka honey) Secondary dressinx2 woven gauze ( non-sterile) Secure with: 4 conforming gauze roll , 1 paper tape Compression Therapy: 4 Caleb Wrap Dressing Change Frequency: Three times each week Wound #4 (Left 5th toe): Cleanser: Cleanse with Normal Saline Topical: Medihoney gel- Apply a thin layer to wound bed. (Sample tube given. Available over the counter.ie. Manuka honey) Secondary dressinx2 woven gauze ( non-sterile) Secure with: 4 conforming gauze roll , 1 paper tape Compression Therapy: 4 Caleb Wrap Dressing Change Frequency: Three times each week Wound #5 (Right proximal plantar foot): Cleanser: Cleanse with Normal Saline Topical: Medihoney gel- Apply a thin layer to wound bed. (Sample tube given. Available over the counter.ie. Manuka honey) Secondary dressinx4 woven gauze (non-sterile) Secure with: 4 conforming gauze roll , 1 paper tape Compression Therapy: 4 Caleb Wrap documented in this encounter Plan of Treatment Upcoming Encounters Date Type Department Care Team (Late st Contact Info) Description 12/06/2024 10:30 AM EDT Office Visit Internal Medicine - [facility] [address], [place] [phone] Lee Fabian MD [address] [place] [id number] documented as of this encounter Goals Goal [...] Peralta RN documented as of this encounter Procedures Procedure Name Priority Date/Time Associated Diagnosis Comments WOUND SNAP VACUUM Routine 10/27/2024 11: 38 AM EST Type 2 diabetes mellitus with foot ulcer (CODE) ([facility]) Non-healing surgical wound, subsequent encounter 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 10/27/2024 11:49 AM Wound Snap Vacuum Diabetic Ulcer Left;Plantar Heel Date/Time: 10/27/2024 11:38 AM Performed by: Shalini Duque RN Authorized by: POOJA Conley ?? Associated wounds: Wound Diabetic Ulcer 08/03/24 Heel Left;Plantar Consent: ??Consent obtained: ??Verbal ??Consent given by: ??Patient ??Risks discussed: ??Infection and pain ??Alternatives discussed: ??Delayed treatment Felicity protocol: ??Procedure explained and questions answered to [...] continuous. Post-procedure details: ??Procedure completion: ??Tolerated us Jose PATTON IN CLINIC/BEDSIDE ORDERABLE S Final Result * (ABNORMAL) Culture wound with gram stain (10/27/2024 11:36 AM EST) Culture, Wound Methicillin-Resista nt Staphylococcus aureus(A) PATTI 10/30/2024 12:50 PM EST [facility] Comment: The organism value for this result has been updated. These results have been appended to the previously preliminary verified report. Edited result: Previously reported as Staphylococcus aureus on 10/29/2024 at 1226 EST. Culture, Wound Enterococcus faecalis(A) PATTI 10/30/2024 12:50 PM EST [facility] Comment: The organism value for this result has been updated. These results have been appended to the previously preliminary verified report. Edited result: Previously reported as Gram Positive Cocci on 10/29/2024 at 1226 EST. Culture, Wound Vancomycin resistant Enterococcus faecium(A) PATTI 10/30/2024 12:50 PM EST [facility] Comment: The organism value for this result has been updated. These results have been appended to the previously preliminary verified report. Edited result: Previously reported as Gram Positive Cocci on 10/30/2024 at 1235 EST. Culture, Wound Corynebacterium species(A) PATTI 10/30/2024 12:50 PM EST [facility] Comment: The organism value for this result has been updated. These results have been appended to the previously preliminary verified report. Gram Stain Result Moderate Polymorphonuclear leukocytes(A) 10/30/2024 12:50 PM EST [facility] Gram Stain Result Many Gram positive cocci in pairs and clusters(A) 10/30/2024 12:50 PM EST [facility] Gram Stain Result Few Gram negative bacilli(A) 10/30/2024 12:50 PM [facility] Gram Stain Result No epithelial cells seen(A) 10/30/2024 12:50 PM [facility] Swab Structure of left foot / [...] ug/ml: Susceptible Vancomycin resistant Enterococcus faecium Vancomycin PATTI >=32 ug/ml: Resistant [facility] MICROBIOLOGY - GENERAL ORDERABLES Final Result [facility] [address] [place] [address], * Debridement Diabetic Ulcer Left Toe D5, Fifth (10/27/2024 11:00 AM EST) Jose Cordero PA - 10/27/2024 11:00 AM EST [...] to treatment: ??Procedure was tolerated well us Jose [facility] IN CLINIC/BEDSIDE ORDERABLE S Final Result * Debridement Diabetic Ulcer Left Toe D1, Great (10/27/2024 11:00 AM EST) Jose Cordero PA - 10/27/2024 11:00 AM EST [...] to treatment: ??Procedure was tolerated well us Jose [facility] IN CLINIC/BEDSIDE ORDERABLE S Final Result * Debridement Diabetic Ulcer Left;Plantar Heel (10/27/2024 11:00 AM EST) Jose Cordero PA - 10/27/2024 11:00 AM EST [...] to treatment: ??Procedure was tolerated well us [facility] IN CLINIC/BEDSIDE ORDERABLE S Final Result * Debridement Diabetic Ulcer Right;Proximal;Plantar Foot (10/27/2024 11:00 AM EST) Jose Cordero PA - 10/27/2024 11:00 AM EST [...] to treatment: ??Procedure was tolerated well us [facility] IN CLINIC/BEDSIDE ORDERABLE S Final Result * Debridement Diabetic Ulcer Right;Plantar Foot (1st met, TMA hx) (10/27/2024 11:00 AM EST) Jose Cordero PA - 10/27/2024 11:00 AM EST [...] to treatment: ??Procedure was tolerated well us [facility] IN CLINIC/BEDSIDE ORDERABLE S Final Result documented in this encounter Visit Diagnoses Diagnosis Type 2 diabetes mellitus with foot ulcer (CODE) ([facility])- Primary ISTAP type 3 skin tear of left forearm Non-healing surgical wound, subsequent encounter Non-pressure chronic ulcer of other part of right foot with fat layer exposed (CMS/HCC) 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 ([facility]/HCC) Non-pressure chronic ulcer of other part of left foot with fat layer exposed (CMS/HCC) Type 2 diabetes mellitus with diabetic peripheral angiopathy without gangrene, without long-term current use of insulin (CMS/HCC) Peripheral vascular disease, unspecified (CMS/HCC) Peripheral vascular disease, unspecified Essential (primary) hypertension Unspecified essential hypertension documented in this encounter Additional Health Concerns Active Problems Noted Date Diagnosed Date Impaired Tissue 08/10/2024 Education needed on impact of smoking on wound 1 10/10/2023 Education needed related to ulceration/compromised skin integrity. 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
== END 2024-12-02 10:17 | disposition home or self-care (01) ==
PROVIDERS: PCP Internal Medicine; Visit Provider Internal Medicine
DX: I48.0 Paroxysmal atrial fibrillation (principal); I50.30 Unspecified diastolic (congestive) heart failure; Z95.818 Presence of other cardiac implants and grafts; G47.33 Obstructive sleep apnea (adult) (pediatric)
CPT/HCPCS: 93010; 99214; G2211

== ENCOUNTER → 2024-12-02 09:24 | Outpatient (BNVA) | payer MEDICARE, SELFPAY | PROVIDERS: PCP Internal Medicine; Visit Provider Internal Medicine | DX: I48.0 Paroxysmal atrial fibrillation (principal); I50.30 Unspecified diastolic (congestive) heart failure; G47.33 Obstructive sleep apnea (adult) (pediatric); Z99.89 Dependence on other enabling machines and devices; Z95.818 Presence of other cardiac implants and grafts; Z95.0 Presence of cardiac pacemaker; Z87.891 Personal history of nicotine dependence | CPT/HCPCS: 93005; 99212 ==

== ENCOUNTER 2024-12-03 13:33 | Outpatient (REF) | payer MEDICARE, SELFPAY ==
[2024-12-03 13:48] LABS: MANUAL DIFF FLAG NO
[2024-12-03 13:52] LABS: Basophils Absolute Auto 0.1 X10*3/uL (0.0-0.2); Basophils Percent Auto 0.6 % (0-2); Eosinophils Absolute Auto 0.4 X10*3/uL (0.0-0.4); Eosinophils Percent Auto 4.8 % (0-4); Hematocrit 30.3 % (42.0-52.0); Hemoglobin 9.4 g/dl (14.0-18.0); Imm Gran Abs Auto 0.04 X10*3/uL (0.00-0.03); Imm Gran Pct Auto 0.4 % (0.0-0.4); Lymphocytes Percent Auto 10.7 % (20-40); Mean Corpuscular Hemoglobin 28.7 pg (27.0-33.0); Mean Corpuscular Volume 92.4 fL (80.0-98.0); Mean Platelet Volume 10.3 fL (9.4-12.4); Monocytes Absolute Auto 0.6 X10*3/uL (0.1-1.2); Monocytes Percent Auto 6.8 % (2-11); Neutrophils Absolute Auto 6.9 x10*3/uL (2.0-8.3); Neutrophils Percent Auto 76.7 % (45-73); Platelet Count 308 X10*3/uL (160-400); Red Blood Count 3.28 X10*6/uL (4.60-5.80); Red Cell Distribution Width 19.2 % (11.0-16.0)
[2024-12-03 14:32] LABS: Erythrocyte Sedimentation Rate 47 MM/HR (0-15)
--- OUTSIDE RECORDS SUMMARY | 2024-12-03 15:19 | XMS_ITS | Encounter Summary ---
Author Organization [facility] Address [address] [place] [address] Care Team Providers Care Travel Money Advisor Name Role Phone Lee Fabian MD Primary Care Provider [phone] Vitaliy Fields MD Unavailable Dallas Camejo MD Unavailable [phone] Rolando Lopez MD Unavailable Cesar Fair MD Unavailable [phone] Daisy Her PT Unavailable [phone] Reason for Visit * Reason Comments Call Patient Encounter Details Date Type Department Care Team (Late st Contact Info) Description 11/23/2024 Telephone [facility] Infectious Disease [address] [place] [address] Nilton Zepeda MA [address] [address] Call Patient Social History Tobacco Use Types Packs/Day Years Used Date Smoking Tobacco: Former Cigarettes 1 29.2 1 977 - 2003 Smokeless Tobacco: Never Alcohol Use Standard Drinks/Week Comments Yes 21 (1 standard drink = 0.6 oz pu re alcohol) [facility] Utilities Answer Date Recorded In the past 12 months has [employer], [employer], or [employer] threatened to shut off services in your [...] time in the past 12 m [facility], were you homeless or living in a [...] EST Reviewed chart, pt currently admitted to [address] with plans for repeat TATIANNA end [...] Info) Description 12/07/2024 1:30 PM EDT Appointment [facility] Heart & Vascular [place] - Electrophysiology [address] [place] [phone] Gretel Hinds, INSPECTOR FABRIC [address] [address] 12/14/2024 2:00 PM EDT [facility] [address] [place] [address] Dallas Camejo MD [address] [place] [address] 12/16/2024 8:30 AM EDT Office Visit [facility] Infectious Disease [address] [place] [phone] Ena Mtz MD [address] [place], [place] [phone] documented as of this encounter Visit Diagnoses Not on filedocumented in this encounter 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/10/24 09/16/2024 09/16/2024 11/24/2024 3:08 P M EST R/O Respiratory Disease 11/23/2024 11/23/2024 02/2 01/2025 12:00 PM EST documented as of this encounter Care Teams Travel Money Advisor Relationship Specialty Start Date End Date Lee Fabian MD [address] [place] [address] PCP - General Internal Medicine 09/02/24 Vitaliy Fields MD [address] [place] [address] Cardiovascular Disease 09/02/24 Dallas Camejo MD [address] [place] [address] Surgery, Orthopedic 09/02/24 Rolando Lopez MD 622 [facility] Transplant - 14 [place] [address] Physician Nephrology 09/02/24 Cesar Fair MD [address] [phone] Surgery, Cardiac 11/08/24 Daisy Her, PT [address] [address] Soda WorkerAssociate Professor Of Engineering Medicine and Rehabilitation 11/18/24 documented as of this encounter
--- OUTSIDE RECORDS SUMMARY | 2024-12-03 15:19 | XMS_ITS | Encounter Summary ---
Author Organization [facility] Address [address] [place] [address] Care Team Providers Care Safety Deposit Clerk Name Role Phone Lee Fabian MD Primary Care Provider [phone] Reason for Visit * Reason Onset Date Comments vna 10/04/2024 Encounter Details Date Type Department Care Team (Late st Contact Info) Description 10/04/2024 [facility] [address] [place] [phone] Lee Fabian MD [address] [place] [address] vna Social History Tobacco Use Types Packs/Day [...] VNA CALL [facility] Full name of caller: rupesh The [...] AM EDT Office Visit Internal Medicine - [facility] [address] [place], [place] [phone] Lee Fabian MD [address] [place] [address] documented as of this encounter Goals Goal [...] documented as of this encounter Care Teams Safety Deposit Clerk Relationship Specialty Start Date End Date Lee Fabian MD [address] [place] [address] PCP - General Internal Medicine 08/03/24 documented as of this encounter
--- OUTSIDE RECORDS SUMMARY | 2024-12-03 15:19 | XMS_ITS | Encounter Summary ---
Author Organization [facility] Address [address] [place] [address] Care Team Providers Care Superintendent Storage Area Name Role Phone Lee Fabian MD Primary Care Provider [phone] Vitaliy Fields MD Unavailable [phone] Dallas Camejo MD Unavailable [phone] Rolando Lopez MD Unavailable [phone] Cesar Fair MD Unavailable [phone] Daisy Her PT Unavailable [phone] Encounter Details Date Type Department Care Team (Late st Contact Info) Description 10/19/2024 Scanned Document [facility] [address] [place] [address] Surjit [address] [address] Social History Tobacco Use Types Packs/Day Years Used Date Smoking Tobacco: Former Cigarettes 1 29.2 1 977 - 2004 Smokeless Tobacco: Never Alcohol Use Standard Drinks/Week Comments Yes 21 (1 standard drink = 0.6 oz pu re alcohol) [facility] Utilities Answer Date Recorded In the past 12 months has [employer], gas, oil, or water [employer] threatened to shut off services in your [...] any time in the past 12 m [facility], were you homeless or living in a [place] health [place] facility (including now)? No 09/10/2024 Sex and Gender Information Value Date Recorded Sex Assigned at Male 09/03/2024 12:21 PM EST Gender Identity Male 09/03/2024 12:21 PM EST Sexual Orientation Heterosexual (straight) 09/10 7:58 AM EST documented as of this encounter Plan of Treatment Upcoming Encounters Date Type Department Care Team (Late st Contact Info) Description 12/07/2024 1:30 PM EDT Appointment [facility] Heart & Vascular [place] - Electrophysiology [address] [place] [address] Gretel Hinds, KNOTTER [address] [address] 12/14/2024 2:00 PM EDT Office Visit [facility] [place] [address] [address] Dallas Camejo MD 7 [place] [address] 12/16/2024 8:30 AM EDT Office Visit Infectious Disease [address] [place] [phone] Ena Mtz MD [address] [place] [phone] documented as of this encounter Visit Diagnoses Not on filedocumented in this encounter 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/10/24 09/16/2024 09/16/2024 11/24/2024 3:08 P M EST R/O Respiratory Disease 11/07/2024 11/07/202410/30 7:06 AM EST R/O Respiratory Disease 11/23/2024 11/23/202410/31 12:00 PM EST documented as of this encounter Care Teams Superintendent Storage Area Relationship Specialty Start Date End Date Lee Fabian MD [address] [place] [address] PCP - General Internal Medicine 09/02/24 Vitaliy Fields MD [address] [place] [address] Cardiovascular Disease 09/02/24 Dallas Camejo MD [address] [place] [address] Surgery, Orthopedic 09/02/24 Rolando Lopez MD [address] Transplant - Ph [address] [place] [address] Physician Nephrology 09/02/24 Cesar Fair MD [address] [phone] Surgery, Cardiac 11/08/24 Daisy Her, PT 85 [facility] [address] [place] [address] Inventory AssociateAcetylene Plant Operator Medicine and Rehabilitation 11/18/24 documented as of this encounter
--- OUTSIDE RECORDS SUMMARY | 2024-12-03 15:19 | XMS_ITS ---
Care Plan Created on: December 03, 2024 Luca Crowe : 1960 Sex: Male Author Organization [facility] Address [address] [place] [address] Phone Care Team Providers Care Clothespin Drier Operator Name Role Phone Lee Fabian MD Primary Care Provider [phone] Active Problems Problem Noted Date Diagnosed Date [...]
--- OUTSIDE RECORDS SUMMARY | 2024-12-03 15:19 | XMS_ITS | Encounter Summary ---
Author Organization [facility] Address [address] [place] [address] Care Team Providers Care Elementary Education Tutor Name Role Phone Lee Fabian MD Primary Care Provider [phone] Reason for Visit * Reason Onset Date Comments Faxed Order 12/02/2024 Driss BLACKMAN Encounter Details Date Type Department Care Team (Late st Contact Info) Description 12/02/2024 Telephone Internal Medicine - [address] [address] Lee Fabian MD [address] [place] [address] Faxed Order (Driss BLACKMAN ) Social History [...] of Assessment Author Yes 09/19/2024 11:54 PM Eirk Rendon RN * Do you have serious [...] Progress Notes * Hilda Briceño MA - 12/03/2024 10:08 AM EST Faxed form back. * Nani Dickerson - 12/02/2024 4:08 PM EST Orders from [facility] placed in Lee Fabian MD bin. Please complete and fax back to [phone]. Thank you. documented in this encounter Plan of Treatment Upcoming Encounters Date Type Department Care Team (Late st Contact Info) Description 12/06/2024 10:30 AM EDT Office Visit Internal Medicine - [address] [address] Lee Fabian MD [address] [place] [address] documented as of this encounter Goals Goal [...] documented as of this encounter Care Teams Elementary Education Tutor Relationship Specialty Start Date End Date Lee Fabian MD [address] [place] [address] PCP - General Internal Medicine 08/03/24 documented as of this encounter
--- OUTSIDE RECORDS SUMMARY | 2024-12-03 15:19 | XMS_ITS | Encounter Summary ---
Author Organization [facility] Address [address] [place] [address] Care Team Providers Care Customer Account Representative Name Role Phone Lee Fabian MD Primary Care Provider [phone] Vitaliy Fields MD Unavailable [phone] Dallas Camejo MD Unavailable [phone] Rolando Lopez MD Unavailable Cesar Fair MD Unavailable [phone] Daisy Her PT Unavailable [phone] Reason for Visit * Reason Comments Appointment Encounter Details Date Type Department Care Team ([facility] st Contact Info) Description 11/19/[address] [phone] Nilton Zepeda MA [address] [phone] Appointment Social History Tobacco Use Types Packs/Day Years Used Date Smoking Tobacco: Former Cigarettes 1 29.2 1 977 - 2004 Smokeless Tobacco: Never Alcohol Use Standard Drinks/Week Comments Yes 21 (1 standard drink = 0.6 oz pu re alcohol) [facility] Utilities Answer Date Recorded In the past 12 months has th e [employer], gas, oil, or water company threatened to [...] 11/19/2024 3:28 PM EST ----- Message from Deck Specialist Nilton Multani MA sent at 11/19/2024 3:28 PM EST ----- Scheduled for 12/16/2024 ??8:30 AM ----- Message ----- From: Ena Mtz MD Sent: 11/19/2024 2:49 PM EST To: [facility] Account Manager Education Please schedule Hospital follow-up visit - in person In 4 weeks documented in this encounter Plan of Treatment Upcoming Encounters Date Type Department Care Team (Late st Contact Info) Description 12/07/2024 1:30 PM EDT Appointment [facility] Heart & Vascular [place] - Electrophysiology [address] [place] [phone] Gretel Hinds, AUTOMOTIVE REFINISHER [address] [phone] 12/14/2024 2:00 PM EDT [facility] [address] [address] Dallas Camejo MD [address] [place] [address] 12/16/2024 8:30 AM EDT Office Visit [facility] Infectious Disease [address] [place] [phone] Ena Mtz MD [address] [place], [place] [phone] documented as of this encounter Visit Diagnoses Not on filedocumented in this encounter 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/10/24 09/16/2024 09/16/2024 11/24/2024 3:08 P M EST documented as of this encounter Care Teams Customer Account Representative Relationship Specialty Start Date End Date Lee Fabian MD [address] [place] [address] PCP - General Internal Medicine 09/02/24 Vitaliy Fields MD [address] [address] Cardiovascular Disease 09/02/24 Dallas Camejo MD [address] [place] [address] Surgery, Orthopedic 09/02/24 Rolando Lopez MD 622 [facility] Transplant - 14 [place] [address] Physician Nephrology 09/02/24 Cesar Fair MD 85 [facility] [address] [place] [address] Surgery, Cardiac 11/08/24 Daisy Her, PT 85 [facility] [address] [place] [address] Any Commodity Sales DelivererSoftware Application Tester Medicine and Rehabilitation 11/18/24 documented as of this encounter
--- OUTSIDE RECORDS SUMMARY | 2024-12-03 15:19 | XMS_ITS | Encounter Summary ---
Author Organization [facility] Address [address] [place] [address] Care Team Providers Care Timber Rider Name Role Phone Lee Fabian MD Primary Care Provider Vitaliy Fields MD Unavailable [phone] Dallas Camejo MD Unavailable Rolando Lopez MD Unavailable Cesar Fair MD Unavailable Daisy eHr PT Unavailable Encounter Details Date Type Department Care Team (Late st Contact Info) Description 09/17/2024 [facility]ation [facility] [address] [place] [address] Dallas Camejo MD 7 [place] [address] Social History Tobacco Use Types Packs/Day Years Used Date Smoking Tobacco: Former Cigarettes 1 29.2 1 977 - 2004 Smokeless Tobacco: Never Alcohol Use Standard Drinks/Week Comments Yes 21 (1 standard drink = 0.6 oz pu re alcohol) [facility] Utilities Answer Date Recorded In the past 12 months has [employer], gas, oil, or water company threatened [...] any time in the past 12 m [facility], were you homeless or living in a longterm (including now)? No 09/10/2024 Sex and Gender [...] Appointment [facility] Heart & Vascular [place] - Electrophysiology 65 [facility] [address] Gretel Hinds, SECONDARY SPANISH TEACHER [address] [address] 12/14/2024 2:00 PM EDT [facility] Visit [facility] [address] [address] Dallas Camejo MD 7 [place] [address] 12/16/2024 8:30 AM EDT Office Visit [facility] Infectious Disease [address] [place] [address] Ena Mtz MD 132 [place], [place] [phone] documented as of this encounter Visit Diagnoses Not on filedocumented in this encounter 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/10/24 09/16/2024 09/16/2024 11/24/2024 3:08 P M EST R/O Respiratory Disease 11/07/2024 11/07/202410/30 7:06 AM EST R/O Respiratory Disease 11/23/2024 11/23/202410/31 12:00 PM EST documented as of this encounter Care Teams Timber Rider Relationship Specialty Start Date End Date Lee Fabian MD [address] [place] [address] PCP - General Internal Medicine 09/02/24 Vitaliy Fields MD [address] [place] [address] Cardiovascular Disease 09/02/24 Dallas Camejo MD [address] [place] [address] Surgery, Orthopedic 09/02/24 Rolando Lopez MD [address] Transplant - Ph 14 [place] [address] Physician Nephrology 09/02/24 Cesar Fair MD 85 [facility] [address] [place] [phone] Surgery, Cardiac 11/08/24 Daisy Her, PT [address] [facility] [address] [place] [phone] Women'S Ministry DirectorJig Boring Machine Operator For Metal Medicine and Rehabilitation 11/18/24 documented as of this encounter
--- OUTSIDE RECORDS SUMMARY | 2024-12-03 15:19 | XMS_ITS | Encounter Summary ---
Author Organization [facility] Address [address] [place] [address] Care Team Providers Care Oil Operator Name Role Phone Lee Fabian MD Primary Care Provider [phone] Reason for Visit * Reason Onset Date Comments Faxed Order 12/02/2024 Driss BLACKMAN Encounter Details Date Type Department Care Team (Late st Contact Info) Description 12/02/2024 Telephone Internal Medicine - [address] [address] Lee Fabian MD [address] [place] [address] Faxed Order (Driss BLACKMAN) Social History Tobacco Use Types Packs/Day Years [...] of Assessment Author No 09/19/2024 11:54 PM Eirk Rendon RN documented as of this encounter Mental Status * Because of a physical, mental, or emotional condition, do you have serious difficulty concentrating, remembering, or making decisions? (5 years old or older) Answer Entry Date Author No 09/19/2024 11:54 PM Erik Rendon RN documented in this encounter Progress Notes * Nani Dickerson - 12/02/2024 4:09 PM EST [facility]. Please complete and fax back to [phone]. Thank you. documented in this encounter Plan of Treatment Upcoming Encounters Date Type Department Care Team (Late st Contact Info) Description 12/06/2024 10:30 AM EDT Office Visit Internal Medicine - [address] [phone] Lee Fabian MD [address] [place] [address] documented as of this encounter Goals Goal Patient Goal Type Associated Problems Recent Progress Patient-Stated? Author Decrease Wound Volume by X% by date (in notes) Care Plan Impaired Tissue On track( 025 11:43 AM EST) No Susan Peralta RN Patient and Caregiver Understand Wound Care Education Care Plan Impaired Tissue On track( 025 11:44 AM EST) Susan Allison RN Wound volume breakdown reduced by X% by week 4 Care Plan Impaired Tissue No Susan Peralta RN Wound volume breakdown reduced by X% [...] documented as of this encounter Care Teams Oil Operator Relationship Specialty Start Date End Date Lee Fabian MD [address] [place] [address] PCP - General Internal Medicine 08/03/24 documented as of this encounter
--- OUTSIDE RECORDS SUMMARY | 2024-12-03 15:19 | XMS_ITS | Clinical Summary ---
Author Organization [facility] Address [address] [place] [address] Phone Care Team Providers Care Brass Polisher Name Role Phone Lee Fabian MD Primary Care Provider [phone] Allergies Active Allergy Reactions Criticality Noted Date [...] Encounters Date Type Department Care Team Description 12/02/2024 Telephone Internal Medicine - [facility] [address] [place] [phone] Lee Fabian MD Faxed Order (Driss BLACKMAN) 12/02/2024 Telephone Internal Medicine - [facility] [address] [place] [phone] Lee Fabian MD Faxed Order (Bryan VNA ) 2024 Telephone Internal Medicine - [address] [phone] Lee Fabian MD Faxed Order (Bryan VNA ) 2024 Telephone Internal Medicine - [address] [phone] Lee Fabian MD Hospital Follow-up 11/26/2024 [facility] [address] [place] [address] Lee Fabian MD Faxed Order (Bryan VNA ) 11/19/2024 [facility] - [address] [place] [address] [phone] Marlin Keene RN 11/12/2024 Telephone Internal Medicine - [address] [phone] Lee Fabian MD Request For Order(s) (Bryan VNA ) 11/11/2024 Billing Patient Not Present Internal Medicine - [address] [phone] Lee Fabian MD Encounter for change or removal of surgical wound dressing (Primary Dx); Encounter for surgical aftercare following surgery on the skin and subcutaneous tissue; Type 2 diabetes mellitus with other specified complication, 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 ([facility]); Other acute osteomyelitis, left ankle and foot ([facility]); Type 2 diabetes mellitus with diabetic peripheral angiopathy with gangrene, 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 ([facility]); 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 ([facility]); Other specified bacterial agents as the cause of diseases classified elsewhere; Type 2 diabetes mellitus with foot ulcer, 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 ([facility]); Non-pressure chronic ulcer of right heel and midfoot with fat layer exposed ([facility]); Type 2 diabetes mellitus with diabetic neuropathic arthropathy, unspecified whether shelter insulin use (CMS/HCC) 11/05/2024 Telephone Internal Medicine - [facility] [place], [place] [phone] Lee Fabian MD Faxed Order (Bryan VNA (Cert/POC 10/31-12/29)) 11/05/2024 Telephone Internal Medicine - [address] [address] [place], [place] [phone] Lee Fabian MD Faxed Order (Bryan VNA (Transfer Summary)) 11/04/2024 Telephone Internal Medicine - [facility] [address] [place], [place] [phone] Lee Fabian MD Faxed Order 10/29/2024 3:15 PM EST Office Visit Internal Medicine - [facility] [address] [place], [place] [address], [place] [phone] Lee Fabian MD Type 2 diabetes mellitus with foot ulcer, unspecified whether shelter insulin use (CMS/HCC) (Primary Dx); Nicotine abuse; Iron deficiency anemia due to chronic blood loss 10/27/2024 11:00 AM EST Office Visit [facility] [address] [place] [phone] Roberto Murguia PA Type 2 diabetes mellitus [...] hypertension 10/20/2024 11:00 AM EST Office Visit [facility] [address] [place] [phone] Roberto Murguia PA Type 2 diabetes mellitus with foot ulcer (CODE) ([facility]) (Primary Dx); ISTAP type 3 skin tear of left forearm; Non-healing surgical wound, subsequent encounter; Abrasion of anterior left lower leg, subsequent encounter; Non-pressure chronic ulcer of other part of right foot with fat layer exposed ([facility]/H[facility]); Non-pressure chronic ulcer of other part of left foot with unspecified severity ([facility]); 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 ([facility]); Non-pressure chronic ulcer left lower leg, limited to breakdown skin ([facility]); Charcot's joint, right ankle and foot; Type 2 diabetes mellitus with diabetic peripheral angiopathy without gangrene, without long-term current use of insulin ([facility]); Peripheral vascular disease, unspecified ([facility]) 10/18/[address] [facility] [address] [place] [address] [phone] Beverly Hyatt LPN Clearance for Hyperbaric treatment 10/18/2024 [facility] [address] [place] [address] [phone] Beverly Hyatt LPN Vascular status call back 10/18/2024 [facility] [address] [place] [address] [phone] Beverly Hyatt LPN Bilateral vascular status for hyperbaric treatment 10/18/2024 [facility] [address] [place] [address] [phone] Beverly Hyatt LPN 10/18/2024 Telephone Vascular Surgery - [place] [address] [facility] [address] [place] [phone] Toni Rae MD provider call back 10/15/2024 9:40 AM EST Consult Gastroenterology - [place] [address] [facility] 175 [facility] [address] [place] [phone] Vishal Oconnell PA Elevated liver enzymes (Primary Dx); Non-healing non-surgical wound; Diabetes 1.5, managed as type 2 (CMS/HCC); Atrial fibrillation, unspecified type (CMS/HCC) 10/13/2024 11:00 AM EST Office Visit [facility] [address] [place] [phone] Roberto Murguia PA Type 2 diabetes mellitus with foot ulcer (CODE) (CMS/HCC) (Primary Dx); Abrasion of anterior left lower [...] evidence of necrosis (CMS/HCC); Non-pressure chronic ulcer left lower leg, limited to breakdown skin (CMS/HCC); Charcot's joint, right ankle and foot; Type 2 diabetes mellitus with diabetic peripheral angiopathy without gangrene, without long-term current use of insulin (CMS/HCC); Peripheral vascular disease, unspecified (CMS/HCC); Non-pressure chronic ulcer of left lower leg with fat layer exposed (CMS/HCC) 10/12/2024 Billing Patient Not Present 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 (CMS/HCC); 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 (CMS/HCC); Other specified bacterial agents as the cause of diseases classified elsewhere; Type 2 diabetes mellitus with diabetic neuropathic arthropathy, 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 (CMS/HCC); Charcot's joint, right ankle and foot; Paroxysmal atrial fibrillation (CMS/HCC); Hypertensive heart and chronic kidney disease with heart failure and stage 1 through stage 4 chronic kidney disease, or unspecified chronic kidney disease ([facility]); Chronic diastolic (congestive) heart failure ([facility]) 10/11/2024 10:30 AM EST Office Visit Internal Medicine - [address] [phone] Lee Fabian MD TABITHA (acute kidney injury) ([facility]) (Primary Dx); Nicotine abuse; Iron deficiency anemia due to chronic blood loss; Fall in home, initial encounter 10/07/2024 11:15 AM EST Office Visit Internal Medicine [address] [phone] Bib Yadav NP Impacted cerumen of right ear (Primary Dx) 10/06/2024 11:00 AM EST Office Visit [facility] [address] [place] [phone] Roberto Murguia PA Type 2 diabetes mellitus with foot ulcer (CODE) ([facility]) (Primary Dx); Non-healing surgical wound, subsequent encounter; Abrasion of anterior left lower leg, subsequent encounter; Non-pressure chronic ulcer of other part of right foot with fat layer exposed ([facility]); Non-pressure chronic ulcer of other part of left foot limited to breakdown of skin ([facility]); Non-pressure chronic ulcer of other part of left foot with unspecified severity ([facility]); 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 ([facility]); Charcot's joint, right ankle and foot; Type 2 diabetes mellitus with diabetic peripheral angiopathy without gangrene, unspecified whether shelter insulin use ([facility]); Peripheral vascular disease, unspecified ([facility]); Non-pressure chronic ulcer left lower leg, limited to breakdown skin ([facility]) 10/04/2024 Telephone Internal Medicine - [address] [phone] Lee Fabian MD vna 10/01/2024 Telephone Internal Medicine - [address] [place] [phone] Lee Fabian MD Request For Order(s) (Bryan VNA) 09/21/2024 [facility] [address] [phone] Lee Fabian MD faxed order (Bryan vna tracking #[id number]) 09/19/2024 11:18 PM EST - 09/20/2024 3:[address] [facility] [address] [place] [phone] Gaston Hendrix MD Bleeding from wound (Primary Dx); Renal insufficiency; Anemia, unspecified type Discharge Disposition: Home or Self Care 09/17/2024 Telephone Internal Medicine - [address] [phone] Lee Fabian MD vna 09/14/2024 [facility] [address] [place] [phone] Meli Kaufman RN 09/10/2024 Telephone Internal Medicine - [address] [phone] Lee Fabian MD Faxed Order (Bryan VNA) 09/09/2024 Telephone Internal Medicine - [address] [phone] Lee Fabian MD Faxed Order (Bryan VNA ) 09/08/2024 Telephone Internal Medicine - [address] [phone] Lee Fabian MD vna call 09/06/2024 Telephone Internal Medicine - [address] [phone] Lee Fabian MD from Last 3 Months [...] AM EDT Office Visit Internal Medicine - [facility] [address] [place] [phone] Lee Fabian MD [address] [place] [address] Health Maintenance Due Date Last Done Comments [...] by week 8 Care Plan Impaired Tissue No Susan Peralta RN Wound volume breakdown reduced by X% by week 12 Care Plan Impaired Tissue Susan Allison RN Quit using tobacco (cigarettes, smokeless, etc) Care Plan Education needed on impact of smoking on wound No Susan Peralta RN Reduce tobacco use (cigarettes, smokeless, etc) Care Plan Education needed on impact of smoking on wound No Susan Peralta RN Decrease Wound Volume by X% by date (in notes) Care Plan Education needed on impact of smoking on wound No Susan Peralta, JOSUE Patient and Caregiver Understand Wound Care Education Care Plan Education needed related to ulceration/compr omised skin integrity. No Susan Peralta RN Medical Devices Implanted Type Area Controller Instructor Device Identifier Shelf Expiration Date Model / Serial / Lot Cardiac Pacemaker Cardiac Pacemaker Left: Shoulder [employer] - CARDIAC RHYTH-CRDM Procedures Procedure Name Priority Date/Time Associated Diagnosis [...] of thyroid function study Paroxysmal atrial fibrillation ([facility]) BASIC METABOLIC PANEL Routine 10/11/2024 11:22 AM EST TABITHA (acute kidney injury) (CMS/HCC) DEBRIDEMENT Routine 10/06/2024 11:00 AM EST Type 2 diabetes mellitus with foot ulcer (CODE) (CMS/HCC) Non-healing surgical wound, subsequent encounter 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 (CMS/HCC) Type 2 diabetes mellitus with diabetic peripheral angiopathy without gangrene, 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 (CMS/HCC) Peripheral vascular disease, unspecified (CMS/HCC) DEBRIDEMENT Routine 10/06/2024 11:00 AM EST Type 2 diabetes mellitus with foot ulcer (CODE) (CMS/HCC) Abrasion of anterior left lower leg, subsequent encounter Non-pressure chronic ulcer of other part of left foot limited to breakdown of skin (CMS/HCC) Type 2 diabetes mellitus with diabetic peripheral angiopathy without gangrene, unspecified whether shelter insulin use (CMS/HCC) Peripheral vascular disease, unspecified (CMS/HCC) DEBRIDEMENT Routine 10/06/2024 11:00 AM EST Type 2 diabetes mellitus with foot ulcer (CODE) (CMS/HCC) Non-pressure chronic ulcer of other part of right foot with fat layer exposed (CMS/HCC) Type 2 diabetes mellitus with diabetic peripheral angiopathy without gangrene, unspecified whether shelter insulin use (CMS/HCC) Peripheral vascular disease, unspecified (CMS/HCC) DEBRIDEMENT Routine 10/06/2024 11:00 AM EST Type 2 diabetes mellitus with foot ulcer (CODE) (CMS/HCC) Non-pressure chronic ulcer of other part of right foot with fat layer exposed (CMS/HCC) Type 2 diabetes mellitus with diabetic peripheral angiopathy without gangrene, unspecified whether shelter insulin use (CMS/HCC) Peripheral vascular disease, unspecified (CMS/HCC) CBC WITH AUTO DIFFERENTIAL STAT 09/19/2024 11:49 [...] Anatomical Region Laterality Modality Interventional R adiology Provider [facility] IMG IR PROCEDURES Final [...] ??Infection and pain ??Alternatives discussed: ??Delayed treatment Heyburn protocol: ??Procedure explained and questions answered to [...] 150mmHg continuous. Post-procedure details: ??Procedure completion: ??Tolerated Roberto PATTON IN CLINIC/BEDSIDE ORDERABLE S Final Result * (ABNORMAL) Culture wound with gram stain (10/27/2024 11:36 AM EST) Culture, Wound Methicillin-Resista nt Staphylococcus aureus(A) PATTI 10/30/2024 12:50 PM EST [facility] Comment: The organism value for this result has been updated. These results have been appended to the previously preliminary verified report. Edited result: Previously reported as Staphylococcus aureus on 10/29/2024 at 1226 EST. Culture, Wound Enterococcus faecalis(A) PATTI 10/30/2024 12:50 PM [facility] Comment: The organism value for this result has been updated. These results have been appended to the previously preliminary verified report. Edited result: Previously reported as Gram Positive Cocci on 10/29/2024 at 1226 EST. Culture, Wound Vancomycin resistant Enterococcus faecium(A) PATTI 10/30/2024 12:50 PM [facility] Comment: The organism value for this result has been updated. These results have been appended to the previously preliminary verified report. Edited result: Previously reported as Gram Positive Cocci on 10/30/2024 at 1235 EST. Culture, Wound Corynebacterium species(A) PATTI 10/30/2024 12:50 PM [facility] Comment: The organism value for this result has been updated. These results have been appended to the previously preliminary verified report. Gram Stain Result Moderate Polymorphonuclear leukocytes(A) 10/30/2024 12:50 PM [facility] Gram Stain Result Many Gram positive cocci in pairs and clusters(A) 10/30/2024 12:50 PM [facility] Gram Stain Result Few Gram negative bacilli(A) 10/30/2024 12:50 PM [facility] Gram Stain Result No epithelial cells seen(A) 10/30/2024 12:50 PM [facility] Swab Structure of left [...] <=0.25 ug/ml: Susceptible Methicillin-Resistant Staphylococcus aureus Clindamycin PATIT <=0.25 ug/ml: Susceptible Methicillin-Resistant Staphylococcus aureus Linezolid [...] Enterococcus faecium Vancomycin PATTI >=32 ug/ml: Resistant Roberto PATTON LAB MICROBIOLOGY - GENERAL ORDERABLES Final Result Performing Organization Address City/State/[facility] Co de Phone Number [facility] ([facility]) [facility] [address] [place] [address], * Debridement Diabetic Ulcer Left Toe D5, [...] ??Infection and pain ??Alternatives discussed: ??Delayed treatment Heyburn protocol: ??Procedure explained and questions answered to [...] K/mcL LAB HEMETOLOGY METHOD 10/15/2024 3:29 PM [facility] RBC 3.20(L) 4.50 - 5.50 M/mcL LAB HEMETOLOGY METHOD 10/15/2024 3:29 PM [facility] Hemoglobin 9.5(L) 13.5 - 17.5 g/dL LAB HEMETOLOGY METHOD 10/15/2024 3:29 PM [facility] Hematocrit 31.8(L) 42.0 - 54.0 % LAB HEMETOLOGY METHOD 10/15/2024 3:29 PM [facility] MCV 100.6(H) 79.0 - 98.0 FL LAB HEMETOLOGY METHOD 10/15/2024 3:29 PM [facility] MCH 30.1 27.0 - 32.0 pcg LAB HEMETOLOGY METHOD 10/15/2024 3:29 PM [facility] MCHC 29.9(L) 32.0 - 37.0 g/dL LAB HEMETOLOGY METHOD 10/15/2024 3:29 PM [facility] RDW 14.5 11.0 - 15.0 % LAB HEMETOLOGY METHOD 10/15/2024 3:29 PM [facility] Platelets 364 130 - 400 K/mcL LAB HEMETOLOGY METHOD 10/15/2024 3:29 PM [facility] MPV 9.9 7.0 - 11.0 FL LAB HEMETOLOGY METHOD 10/15/2024 3:29 PM [facility] NRBC 0.0 <1.0 % LAB HEMETOLOGY METHOD 10/15/2024 3:29 PM [facility] NRBC Absolute 0.00 <0.10 K/mcL LAB HEMETOLOGY METHOD 10/15/2024 3:29 PM [facility] Neutrophils Relative 71.3 % LAB HEMETOLOGY METHOD 10/15/2024 3:29 PM [facility] Lymphocytes Relative 13.1 % LAB HEMETOLOGY METHOD 10/15/2024 3:29 PM [facility] Monocytes Relative 11.5 % LAB HEMETOLOGY METHOD 10/15/2024 3:29 PM [facility] Eosinophils Relative 2.2 % LAB HEMETOLOGY METHOD 10/15/2024 3:29 PM [facility] Basophils Relative 0.7 % LAB HEMETOLOGY METHOD 10/15/2024 3:29 PM [facility] Immature Granulocytes Relative 1.2 % LAB HEMETOLOGY METHOD 10/15/2024 3:29 PM [facility] Neutrophils Absolute 4.86 1.50 - 7.00 K/mcL LAB HEMETOLOGY METHOD 10/15/2024 3:29 PM [facility] Lymphocytes Absolute 0.89(L) 1.00 - 5.00 K/mcL LAB HEMETOLOGY METHOD 10/15/2024 3:29 PM EST [facility] Monocytes Absolute 0.78 0.20 - 1.00 K/mcL LAB HEMETOLOGY METHOD 10/15/2024 3:29 PM [facility] Eosinophils Absolute 0.15 0.00 - 0.50 K/mcL LAB HEMETOLOGY METHOD 10/15/2024 3:29 PM [facility] Basophils Absolute 0.05 0.00 - 0.20 K/mcL LAB HEMETOLOGY METHOD 10/15/2024 3:29 PM [facility] Immature Granulocytes Absolute 0.08(H) 0.00 - 0.03 K/mcL LAB HEMETOLOGY METHOD 10/15/2024 3:29 PM [facility] Blood Venous blood specimen / Unknown Venipuncture / Unknown 10/15/2024 10:37 AM EST 10/15/2024 10:37 AM EST us Vishal PATTON LAB BLOOD ORDERABLES Final Resu lt Performing Organization Address City/[facility]/ZIP Co de Phone Number [facility] [address] [place] [address], [place] [phone] * (ABNORMAL) Iron (10/15/2024 10:37 AM EST) Iron 19(L) 50 - 160 mcg/dL LAB CHEMISTRY METHOD 10/15/2024 10:10 PM EST [facility] Blood Venous blood specimen / Unknown Venipuncture / Unknown 10/15/2024 10:37 AM EST 10/15/2024 10:37 AM EST us Vishal Oconnell PA LAB BLOOD ORDERABLES Final Resu lt [facility] [address] [place] [address], [place] [phone] * Ferritin (10/15/2024 10:37 AM EST) Ferritin 36 26 - 388 ng/mL LAB CHEMISTRY METHOD 10/15/2024 10:11 PM [facility] Blood Venous blood specimen / Unknown Venipuncture / Unknown 10/15/2024 10:37 AM EST 10/15/2024 10:37 AM EST Vishal PATTON LAB BLOOD ORDERABLES Final Resu lt [facility] [address] [place] [address], [place] [phone] * (ABNORMAL) Comprehensive metabolic panel (10/15/2024 10:37 AM EST) Pathologist [facility] Sodium 140 133 - 145 mmol/L LAB CHEMISTRY METHOD 10/15/2024 10:10 PM [facility] Potassium 4.4 3.5 - 5.5 mmol/L LAB CHEMISTRY METHOD 10/15/2024 10:10 PM [facility] Chloride 108 96 - 110 mmol/L LAB CHEMISTRY METHOD 10/15/2024 10:10 PM [facility] CO2 25 21 - 32 mmol/L LAB CHEMISTRY METHOD 10/15/2024 10:10 PM [facility] Anion Gap 7 3 - 11 LAB CHEMISTRY METHOD 10/15/2024 10:10 PM [facility] Glucose 114(H) 70 - 100 mg/dL LAB CHEMISTRY METHOD 10/15/2024 10:10 PM [facility] BUN 33(H) 5 - 25 mg/dL LAB CHEMISTRY METHOD 10/15/2024 10:10 PM [facility] Creatinine 1.70(H) 0.70 - 1.30 mg/dL LAB CHEMISTRY METHOD 10/15/2024 10:10 PM [facility] eGFR 45(L) >=60 mL/min/1. 73m2 LAB CHEMISTRY METHOD 10/15/2024 10:10 PM [facility] Comment:Calculation based on the??Chronic Kidney Disease Epidemiology Collaboration (CKD-EPI) equation refit??without adjustment for race. BUN/Creatinine Ratio 19.4 LAB CHEMISTRY METHOD 10/15/2024 10:10 PM [facility] Calcium 8.6 8.5 - 10.5 mg/dL LAB CHEMISTRY METHOD 10/15/2024 10:10 PM [facility] AST (SGOT) 24 10 - 42 unit/L LAB CHEMISTRY METHOD 10/15/2024 10:10 PM [facility] ALT (SGPT) 30 10 - 60 unit/L LAB CHEMISTRY METHOD 10/15/2024 10:10 PM [facility] Alkaline Phosphatase 83 42 - 121 unit/L LAB CHEMISTRY METHOD 10/15/2024 10:10 PM [facility] Total Protein 7.1 6.0 - 8.0 g/dL LAB CHEMISTRY METHOD 10/15/2024 10:10 PM [facility] Albumin 3.5 3.2 - 5.0 g/dL LAB CHEMISTRY METHOD 10/15/2024 10:10 PM [facility] Total Bilirubin 0.3 0.0 - 1.4 mg/dL LAB CHEMISTRY METHOD 10/15/2024 10:10 PM [facility] Blood Venous blood specimen / Unknown Venipuncture / Unknown 10/15/2024 10:37 AM EST 10/15/2024 10:37 AM EST us Vishal PATTON LAB BLOOD ORDERABLES Final Resu lt [facility] [address] [place] [address], [place] [phone] * Debridement Diabetic Ulcer Left;Plantar Heel (10/13/2024 [...] LAB CHEMISTRY METHOD 10/11/2024 5:30 PM EST [facility] Blood Venous blood specimen / Unknown Venipuncture / Unknown 10/11/2024 11:22 AM EST 10/11/2024 11:22 AM EST us Vitaliy Fields MD LAB BLOOD ORDERABLES Fi nal Result Performing Organization Address City/[facility]/ZIP Co de Phone Number [facility] [address] [place] [address], [place] [phone] * Free thyroxine with reflex to free triiodothyronine (10/11/2024 11:22 AM EST) [facility] Free T4 0.86 0.70 - 1.80 ng/dL LAB CHEMISTRY METHOD 10/11/2024 5:55 PM EST [facility] Blood Venous blood specimen / Unknown Venipuncture / Unknown 10/11/2024 11:22 AM EST 10/11/2024 11:22 AM EST us Vitaliy Fields MD LAB BLOOD ORDERABLES Fi nal Result Performing Organization Address City/[facility]/ZIP Co de Phone Number [facility] [address] [place] [address], [place] [phone] * (ABNORMAL) Complete blood count (10/11/2024 11:22 AM EST) [facility] WBC 7.6 4.8 - 10.8 K/[facility] LAB HEMETOLOGY METHOD 10/11/2024 2:12 PM EST [facility] RBC 2.90(L) 4.50 - 5.50 M/[facility] HEMETOLOGY METHOD 10/11/2024 2:12 PM EST [facility] Hemoglobin 8.9(L) 13.5 - 17.5 g/dL LAB HEMETOLOGY METHOD 10/11/2024 2:12 PM EST [facility] Hematocrit 29.2(L) 42.0 - 54.0 % LAB HEMETOLOGY METHOD 10/11/2024 2:12 PM [facility] MCV 101.0(H) 79.0 - 98.0 FL LAB HEMETOLOGY METHOD 10/11/2024 2:12 PM [facility] MCH 30.8 27.0 - 32.0 pcg LAB HEMETOLOGY METHOD 10/11/2024 2:12 PM [facility] MCHC 30.5(L) 32.0 - 37.0 g/dL LAB HEMETOLOGY METHOD 10/11/2024 2:12 PM [facility] RDW 14.8 11.0 - 15.0 % LAB HEMETOLOGY METHOD 10/11/2024 2:12 PM [facility] Platelets 309 130 - 400 K/mcL LAB HEMETOLOGY METHOD 10/11/2024 2:12 PM EST [facility] MPV 10.0 7.0 - 11.0 FL LAB HEMETOLOGY METHOD 10/11/2024 2:12 PM [facility] NRBC 0.0 <1.0 % LAB HEMETOLOGY METHOD 10/11/2024 2:12 PM [facility] NRBC Absolute 0.00 <0.10 K/mcL LAB HEMETOLOGY METHOD 10/11/2024 2:12 PM EST [facility] Blood Venous blood specimen / Unknown Venipuncture / Unknown 10/11/2024 11:22 AM EST 10/11/2024 11:22 AM EST us Lee Fabian MD LAB BLOOD ORDERABLES Final Res ult [facility] [address] [place] [address], * (ABNORMAL) Triiodothyronine free (10/11/2024 11:22 AM EST) T3, Free 225(L) 230 - 420 pcg/dL LAB CHEMISTRY METHOD 10/11/2024 6:20 PM [facility] Blood Venous blood specimen / Unknown Venipuncture / Unknown 10/11/2024 11:22 AM EST 10/11/2024 11:22 AM EST us Vitaliy Fields MD LAB BLOOD ORDERABLES Fi nal Result [facility] [address] [place] [address], [place] [phone] * (ABNORMAL) Basic metabolic panel (10/11/2024 11:22 AM EST) Only the most recent of2 resultswithin the time period is included. Pathologist [facility] Sodium 137 133 - 145 mmol/L LAB CHEMISTRY METHOD 10/11/2024 5:19 PM [facility] Potassium 5.0 3.5 - 5.5 mmol/L LAB CHEMISTRY METHOD 10/11/2024 5:19 PM [facility] Chloride 105 96 - 110 mmol/L LAB CHEMISTRY METHOD 10/11/2024 5:19 PM [facility] CO2 24 21 - 32 mmol/L LAB CHEMISTRY METHOD 10/11/2024 5:19 PM [facility] Anion Gap 8 3 - 11 LAB CHEMISTRY METHOD 10/11/2024 5:19 PM [facility] Glucose 87 70 - 100 mg/dL LAB CHEMISTRY METHOD 10/11/2024 5:19 PM [facility] BUN 34(H) 5 - 25 mg/dL LAB CHEMISTRY METHOD 10/11/2024 5:19 PM [facility] Creatinine 1.87(H) 0.70 - 1.30 mg/dL LAB CHEMISTRY METHOD 10/11/2024 5:19 PM EST [facility] eGFR 40(L) >=60 mL/min/1. 73m2 LAB CHEMISTRY METHOD 10/11/2024 5:19 PM EST [facility] Comment:Calculation based on the??Chronic Kidney Disease Epidemiology Collaboration (CKD-EPI) equation refit??without adjustment for race. BUN/Creatinine Ratio 18.2 LAB CHEMISTRY METHOD 10/11/2024 5:19 PM EST [facility] Calcium 8.6 8.5 - 10.5 mg/dL LAB CHEMISTRY METHOD 10/11/2024 5:19 PM EST [facility] Blood Venous blood specimen / Unknown Venipuncture / Unknown 10/11/2024 11:22 AM EST 10/11/2024 11:22 AM EST us Lee Fabian MD LAB BLOOD ORDERABLES Final Res ult [facility] [address] [place] [address], * Debridement Diabetic Ulcer Left;Plantar Heel (10/06/2024 [...] Lactate, with reflex (09/19/2024 11:49 PM EST) [facility] LACTIC ACID 2.8(H) 0.4 - 2.0 mmol/L LAB CHEMISTRY METHOD 09/20/2024 12:34 AM [facility] Blood Venous blood specimen / Unknown Venipuncture / Unknown 09/19/2024 11:49 PM EST 09/19/2024 11:57 PM EST David PATTON LAB BLOOD ORDERABLES Final Resul t [facility] [address] [place] [address], [place] [phone] * (ABNORMAL) Prothrombin time with INR (09/19/2024 11:49 PM EST) [facility] Protime 15.4(H) 10.6 - 13.9 sec LAB COAGULATION METHOD 09/20/2024 12:05 AM EST [facility] INR 1.2 LAB COAGULATION METHOD 09/20/2024 12:05 AM [facility] Blood Venous blood specimen / Unknown Venipuncture / Unknown 09/19/2024 11:49 PM EST 09/19/2024 11:57 PM EST David PATTON LAB BLOOD ORDERABLES Final Resul t [facility] [address] [place] [address], * Lipid panel with reflex to direct LDL (08/20/2024 6:25 AM EST) Cholesterol 123 0 - 200 mg/dL LAB CHEMISTRY METHOD 08/20/2024 7:39 AM EST [facility] Triglycerides 102 0 - 150 mg/dL LAB CHEMISTRY METHOD 08/20/2024 7:39 AM EST [facility] HDL 53 >=40 mg/dL LAB CHEMISTRY METHOD 08/20/2024 7:39 AM EST [facility] LDL Calculated 50 0 - 100 mg/dL LAB CHEMISTRY METHOD 08/20/2024 7:39 AM EST [facility] VLDL Cholesterol Linus 20.4 mg/dL LAB CHEMISTRY METHOD 08/20/2024 7:39 AM EST [facility] Non HDL Chol. (LDL+VLDL) 70 <145 mg/dL LAB CHEMISTRY METHOD 08/20/2024 7:39 AM EST [facility] Chol/HDL Ratio 2.3 0.0 - 4.4 LAB CHEMISTRY METHOD 08/20/2024 7:39 AM EST [facility] Blood Venous blood specimen / Unknown Venipuncture / Unknown 08/20/2024 6:25 AM EST 08/20/2024 7:03 AM EST Jefferson Rendon MD LAB BLOOD ORDERABLES Final Resu lt [facility] [address] [place] [address], [place] [phone] * (ABNORMAL) Hemoglobin A1c (07/22/2024) Hemoglobin A1C 8.7(A) <=6.5 % Blood Venous blood specimen / Unknown [facility] Provider LAB BLOOD ORDERABLES Dalila l Result * Urine Albumin Creatinine Ratio (04/14/2024) [facility] Urine Albumin Creatinine Ratio Abstracted [facility] Provider HEALTH MAINTENANCE Final Result * Diabetes Eye Exam (03/17/2024) [facility] Diabetes: Annual Retina Eye Exam Abstracted Result [facility] Provider HEALTH MAINTENANCE Final Result * Colonoscopy (05/12/2023) [facility] Colonoscopy No Interpretation , Abstracted Anatomical Region Laterality Modality Other [facility] Provider HEALTH MAINTENANCE Final Result * Hepatitis C Screening (12/24/2017) [facility] Hepatitis C Screening Abstracted [facility] Provider HEALTH MAINTENANCE Final Result from Last [...] Documents on File Type Date Recorded Patient Automatic Maintainer Expl anation Health Care Decision (hx) 02/14/2018 [...] currently active code status orders. Care Teams Brass Polisher Relationship Specialty Start Date End Date Lee Fabian MD [address] [place] [address] PCP - General Internal Medicine 08/03/24
--- OUTSIDE RECORDS SUMMARY | 2024-12-03 15:19 | XMS_ITS | Encounter Summary ---
Author Organization [facility] Address [address] [place] [address] Care Team Providers Care Site Specialist Name Role Phone Lee Fabian MD Primary Care Provider [phone] Vitaliy Fields MD Unavailable [phone] Dallas Camejo MD Unavailable [phone] Rolando Lopez MD Unavailable [phone] Cesar Fair MD Unavailable [phone] Daisy Her PT Unavailable [phone] Encounter Details Date Type Department Care Team (Late st Contact Info) Description 10/19/2024 Scanned Document [facility] [address] [place] [id number] Surjit [address] [address] Social History Tobacco Use Types Packs/Day Years Used Date Smoking Tobacco: Former Cigarettes 1 29.2 1 977 - 2004 Smokeless Tobacco: Never Alcohol Use Standard Drinks/Week Comments Yes 21 (1 standard drink = 0.6 oz pu re alcohol) [facility] Utilities Answer Date Recorded In the past 12 months has [employer], gas, oil, or water [employer] threatened to shut off services in [...] any time in the past 12 m [facility], were you homeless or living in a snf (including now)? No 09/10/2024 Sex and Gender Information Value Date Recorded Sex Assigned at Male 09/03/2024 12:21 PM EST Gender Identity Male 09/03/2024 12:21 PM EST Sexual Orientation Heterosexual (straight) 09/10 7:58 AM EST documented as of this encounter Plan of Treatment Upcoming Encounters Date Type Department Care Team (Late st Contact Info) Description 12/07/2024 1:30 PM EDT Appointment [facility] Heart & Vascular [place] - Electrophysiology [address] [place] [address] Gretel Hinds, PATTERN CHANGER [address] [address] 12/14/2024 2:00 PM EDT Office Visit [facility] [address] [address] Dallas Camejo MD 7 [place] [address] 12/16/2024 8:30 AM EDT Office Visit [facility] Infectious Disease [address] [place] [phone] Ena Mtz MD [address] [place] [phone] documented as of this encounter Visit Diagnoses Not on filedocumented in this encounter 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/10/24 09/16/2024 09/16/2024 11/24/2024 3:08 P M EST R/O Respiratory Disease 11/07/2024 11/07/202410/30 7:06 AM EST R/O Respiratory Disease 11/23/2024 11/23/202410/31 12:00 PM EST documented as of this encounter Care Teams Site Specialist Relationship Specialty Start Date End Date Lee Fabian MD [address] [place] [address] PCP - General Internal Medicine 09/02/24 Vitaliy Fields MD [address] [place] [address] Cardiovascular Disease 09/02/24 Dallas Camejo MD [address] [place] [address] Surgery, Orthopedic 09/02/24 Rolando Lopez MD [address] Transplant - Ph 14 [place] [address] Physician Nephrology 09/02/24 Cesar Fair MD [address] [phone] Surgery, Cardiac 11/08/24 Daisy Her, PT 85 [facility] [address] [place] [address] Electrician ManagerVisitor Services Specialist Medicine and Rehabilitation 11/18/24 documented as of this encounter
--- OUTSIDE RECORDS SUMMARY | 2024-12-03 15:20 | XMS_ITS | Encounter Summary ---
Author Organization [facility] Address [address] [place] [address] Care Team Providers Care Resident Inspector Name Role Phone Lee Fabian MD Primary Care Provider Vitaliy Fields MD Unavailable Dallas Camejo MD Unavailable Rolando Lopez MD Unavailable Cesar Fair MD Unavailable [phone] Daisy Her PT Unavailable [phone] Encounter Details Date Type Department Care Team (Late st Contact Info) Description 11/18/2024 Orders Only [facility] Heart & Vascular [place] [facility] - Electrophysiology Laboratory [address] [place] [address] Lucho Ceron MD [address] [place] [address] Social History Tobacco Use Types Packs/Day Years Used Date Smoking Tobacco: Former Cigarettes 1 29.2 1 7 - 2003 Smokeless Tobacco: Never Alcohol Use Standard Drinks/Week Comments Yes 21 (1 standard drink = 0.6 oz pu re alcohol) [facility] Utilities Answer Date Recorded In the past 12 months has [employer], gas, oil, or water [employer] threatened to shut off services in [...] any time in the past 12 m [facility], were you homeless or living in a snf (including now)? No 11/03/2024 Sex and Gender Information Value Date Recorded Sex Assigned at Male 09/03/2024 12:21 PM EST Gender Identity Male 09/03/2024 12:21 PM EST Sexual Orientation Heterosexual (straight) 09/10 7:58 AM EST documented as of this encounter Plan of Treatment Upcoming Encounters Date Type Department Care Team (Late st Contact Info) Description 12/07/2024 1:30 PM EDT Appointment [facility] Heart & Vascular [place] - Electrophysiology [address] [facility] [place] [address] LizetGretel, DECALER [address] [phone] 12/14/2024 2:00 PM EDT Office Visit [facility] [place] [address] [phone] Dallas Camejo MD 7 [place], [place] [phone] 12/16/2024 8:30 AM EDT Office Visit [facility] Infectious Disease [address] [place] [address] Ena Mtz MD [address] [place], [place] [phone] documented as of this encounter Visit Diagnoses Not on filedocumented in this encounter 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/10/24 09/16/2024 09/16/2024 11/24/2024 3:08 P M EST R/O Respiratory Disease 11/23/2024 11/23/202410/31 12:00 PM EST documented as of this encounter Care Teams Resident Inspector Relationship Specialty Start Date End Date Lee Fabian MD [address] [place] [address] PCP - General Internal Medicine 09/02/24 Vitaliy Fields MD [address] [place] [address] Cardiovascular Disease 09/02/24 Dallas Camejo MD 7 [place], [place] [phone] Surgery, Orthopedic 09/02/24 Rolando Lopez MD [address] Transplant - Ph 14 [place] [address] Physician Nephrology 09/02/24 Cesar Fair MD 85 [facility] [address] [place] [phone] Surgery, Cardiac 11/08/24 Daisy Her, PT 85 [facility] [address] [place] [phone] Early Childhood Aide ClassroomTruck Unloader Medicine and Rehabilitation 11/18/24 documented as of this encounter
--- OUTSIDE RECORDS SUMMARY | 2024-12-03 15:20 | XMS_ITS | Encounter Summary ---
Author Organization [facility] Address [address] [place] [address] Care Team Providers Care Marine Steam Fitter Helper Name Role Phone Lee Fabian MD Primary Care Provider [phone] Vitaliy Fields MD Unavailable [phone] Dallas Camejo MD Unavailable [phone] Rolando Lopez MD Unavailable Cesar Fair MD Unavailable [phone] Daisy Her PT Unavailable [phone] Reason for Referral * Rehabilitation (Routine) - Pending Review Specialty Diagnoses / Procedures Referred By Contac t Referred To Contact Diagnoses Below-knee amputation of left lower extremity, initial encounter ([facility]) Sheila Childs APRN [address] [address] Referral ID Status Reason Start Date Expiration Date Visits Requested Visits Authorized [id number] Pending Review Support Services 11/30/2024 12/01/2025 1 [...] PM EST Office Visit [facility] 7 [facility] [address] [place] [address] Sheila Childs APRN 31 [facility] 100 [place] [address] Below-knee amputation of left lower extremity, initial encounter ([facility]) (Primary Dx) Social History Tobacco Use Types Packs/Day Years Used Date Smoking Tobacco: Former Cigarettes 1 29.2 1 977 - 2003 Smokeless Tobacco: Never Alcohol Use Standard Drinks/Week Comments Yes 21 (1 standard drink = 0.6 oz pu re alcohol) [facility] Utilities Answer Date Recorded In the past 12 months has [facility] [employer], gas, oil, or water [employer] threatened to shut off services in your [...] this encounter Progress Notes * Sheila Childs, PARACHUTE/COMBATANT DIVER OFFICER - 11/30/2024 1:15 PM EST Images from the original note were not included. [address] [facility] [address] [address] Encounter Date: 11/30/2024 1. Below-knee amputation of [...] he has official clearance to proceed with Technical Services Librarian and start getting fitted for a orthotic [...] Info) Description 12/07/2024 1:30 PM EDT Appointment [facility] Heart & Vascular [place] - Electrophysiology [address] [place] [address] Gretel Hinds APRN [address] [address] 12/14/2024 2:00 PM EDT [facility] [address] [address] Dallas Camejo MD [address] [place] [address] 12/16/2024 8:30 AM EDT Office Visit [facility] Infectious Disease [address] [place] [phone] Ena Mtz MD [address] [place] [address] Scheduled Referrals Name Type Priority Associated Diagnoses Orde r Schedule Amb Referral to Therapy Services (PT or OT) Outpatient Referral Routine Below-knee amputation of left lower extremity, initial encounter (HCC) Ordered: 11/30/2024 documented as of this encounter Visit Diagnoses Diagnosis Below-knee amputation of left lower extremity, initial encounter (HCC)- Primary documented in this encounter Care Teams Marine Steam Fitter Helper Relationship Specialty Start Date End Date Lee Fabian MD [address] [place] [address] PCP - General Internal Medicine 09/02/24 Vitaliy Fields MD [address] [address] Cardiovascular Disease 09/02/24 Dallas Camejo MD 7 [place] [address] Surgery, Orthopedic 09/02/24 Rolando Lopez MD [address] Transplant - Ph 14 [place] [address] Physician Nephrology 09/02/24 Cesar Fair MD [address] [phone] Surgery, Cardiac 11/08/24 Daisy Her, PT 85 [facility] [address] [place] [phone] Assistant Men'S Lacrosse CoachInnovations Paraprofessional Medicine and Rehabilitation 11/18/24 documented as of this encounter
--- OUTSIDE RECORDS SUMMARY | 2024-12-03 15:20 | XMS_ITS | Encounter Summary ---
Author Organization [facility] Address [address] [place] [address] Care Team Providers Care Esthetician Spa Name Role Phone Lee Fabian MD Primary Care Provider Vitaliy Fields MD Unavailable Dallas Camejo MD Unavailable Rolando Lopez MD Unavailable Cesar Fair MD Unavailable [phone] Daisy Her PT Unavailable [phone] Encounter Details Date Type Department Care Team (Late st Contact Info) Description 12/01/2024 Documentation [facility] Physical Medicine and Rehab [address] [address] Daisy Her, PT 85 [facility] [address] [place] [phone] Social History Tobacco Use Types Packs/Day Years Used Date Smoking Tobacco: Former Cigarettes 1 29.2 1 7 - 2003 Smokeless Tobacco: Never Alcohol Use Standard Drinks/Week Comments Yes 21 (1 standard drink = 0.6 oz pu re alcohol) [facility] Utilities Answer Date Recorded In the past 12 months has [employer], gas, oil, or water [employer] threatened to shut off services in your [...] any time in the past 12 m [facility], were you homeless or living in a [...] taking over his care and orders for Irrigation Equipment Remover and rehabilitation and to reach out to [...] continue to communicate with Laura King from [facility] for any additional PMR needs or support. I will cancel his 12/15 prosthetic clinic appt today. documented in this encounter Plan of Treatment Upcoming Encounters Date Type Department Care Team (Late st Contact Info) Description 12/07/2024 1:30 PM EDT Appointment [facility] Heart & Vascular [place] - Electrophysiology [address] [place] [phone] Gretel Hinds, REGIONAL FACILITIES MANAGER [address] [address] 12/14/2024 2:00 PM EDT [facility] Visit [facility] [address] [place] [address] Dallas Camejo MD [address] [place] [address] 12/16/2024 8:30 AM EDT Office Visit [facility] Infectious Disease [address] [place] [phone] Ena Mtz MD [address] [place] [phone] documented as of this encounter Visit Diagnoses Not on filedocumented in this encounter Care Teams Esthetician Spa Relationship Specialty Start Date End Date Lee Fabian MD [address] [place] [address] PCP - General Internal Medicine 09/02/24 Vitaliy Fields MD [address] [address] Cardiovascular Disease 09/02/24 Dallas Camejo MD [address] [place] [address] Surgery, Orthopedic 09/02/24 Rolando Lopez MD [address] Trans[facility] - 14 [place] [address] Physician Nephrology 09/02/24 Cesar Fair MD [address] [phone] Surgery, Cardiac 11/08/24 Daisy Her, PT 85 [facility] [address] [place] [phone] Item Processing ClerkTacker Elastic Band Medicine and Rehabilitation 11/18/24 documented as of this encounter
--- OUTSIDE RECORDS SUMMARY | 2024-12-03 15:21 | XMS_ITS | Encounter Summary ---
Author Organization Formerly [facility] Address [address] [place] [address] Care Team Providers Care Rigger Apprentice Name Role Phone Lee Fabian MD Primary Care Provider Vitaliy Fields MD Unavailable Dallas Camejo MD Unavailable [phone] Rolando Lopez MD Unavailable Cesar Fair MD Unavailable [phone] Daisy Her PT Unavailable [phone] Reason for Referral * Home Health (Routine) - Pending Review Specialty Diagnoses / Procedures Referred By Contac t Referred To Contact Diagnoses Endocarditis Leroy Jean MD [address] [place] [address] [facility] [address] [place] [phone] Referral ID Status Reason Start Date Expiration Date V isits Requested Visits Authorized [id number] Pending Review 11/24/2024 11/25/2025 999 999 Question Answer Primary Reason for Home Health (Enter diagnosis; avoid symptoms): Acute osteomyelitis of left calcaneus (HCC) [[id number]] Requested SOC Date 11/26/2024 Physician to follow [...] Expiration Date Visits Re quested Visits Authorized [id number] 1 1 Encounter Details Date Type Department Care Team (Late st Contact Info) Description 11/02/2024 6:10 PM EST - 11/25/2024 7:51 PM EST Hospital Encounter [facility] [address] [phone] Dallas Camejo MD [address] [place] [id number] Shay Martin MD [address] [place] [address] Luis Degroot MD [address] [place] [address] Maddison Villalpando MD [address] [place] [phone] Fredi Powers MD [address] [place] [id number] Brandon Clemente MD [address] [place] [id number] Lela Amor MD [address] [place] [address] Gianluca Calles MD [address] [place] [address] Leroy Jean MD [address] [place], [place] [phone] (Work) Acute osteomyelitis of left calcaneus (HCC) [...] 0.6 oz pu re alcohol) [facility] Utilities Answer Date Recorded In the past 12 months has IEV, gas, oil, or water [employer] threatened to shut off services in your [...] any time in the past [facility], were you homeless or living [...] MD (Surgery, Cardiac) Daisy Her PT as Nuclear Medicine Tech (Physical Medicine and Rehabilitation) PRIMARY DISCHARGE DIAGNOSIS [...] Routine Referral Type: Home Health Referral Location: [facility] [...] Department Center 12/07/2024 1:30 PM ROOM, ICD/PACER/LOOP [facility] ARRHY [facility] Arrhythmi 12/15/2024 10:45 AM Alba Ramos MD [id number] PM&r 12/16/2024 8:30 AM Ena Mtz MD [...] PAD, RLS and CKD3 that presents to [facility] inpatient floor as a direct admit under [...] while on IV antibiotics. Fax results to [phone] 4. Patient will need to be scheduled [...] Case IDs Date Procedure Surgeon Location Status [id number] 11/05/24 LEFT BELOW KNEE AMPUTATION Dallas Camejo MD [facility] OR Comp [id number] 11/17/24 Extraction lead(s) laser from dual PM system; [id number] Rui Pabon MD Main OR Comp [id number] 11/19/24 CVC INSERT (TUNNEL)W/O PORT > 5 YRS Devon Vogt DO IR Comp Diagnostic Studies: XR Foot 1 view-Left Result Date: 11/02/2024 This exam was performed in office at [facility] and images reviewed by orthopedic provider. Any [...] Discharge Instr - Other Orders* Gretel Hinds, OUTLET MANAGER - 11/17/2024 9:20 AM EST Cardiac Device Extraction Discharge Instructions Important phone numbers: Transcript Evaluator/Surgeon???s office: [phone] (8am-4:30pm Fri - Friday Our answering service [...] If it does not stop, go to [facility] ER or walk-in center. If you experience any of the above, call your surgeon/city driver???s office immediately. If still present, remove the [...] Report any of these symptoms to your city driver. Call your primary senior datastage developer if you experience any of the following: [...] Discharge Instructions Important phone numbers: Pacemaker Clinic: [phone] (8am-4:30pm Fri-Friday) Transcript Evaluator/Surgeon???s office: [phone] (8am-4:30pm Fri -Friday) Our answering service is [...] experience any of the above, call your city driver???s office immediately It is normal to have [...] dental procedure. You should call your primary senior datastage developer if you experience any of the following: [...] when you get home. If your primary senior datastage developer???s office will monitor your pacemaker, please call [...] Continuous Glucose Sensor (FreeStyle Wallace 3 Sensor) [facility] INJECT 1 DEVICE INTO THE SKIN EVERY [...] through the weekend - advised to call [employer] [facility] - phone number on pg 5 of [facility]) Do you have any questions about your [...] Plan Plan Home w/family and [facility] Patient/Family in Agreement with Plan yes Final Discharge Disposition Code 06 - home with home health care Final Case Management Care Plan Note Summary: Per provider, patient is medically ready to transition home with services. Confirmed that patient is able to obtain medications/food/necessities post discharge. Patient now refusing HSC (LTACH) and returning home with son, [facility] for IV abx and [facility]. Final Destination: Home with son and [facility] Plan for home support/Caregiver/responsible person: Son and [facility] Follow-up provider appointment: Per AVS/W-10 Equipment Ordered [...] level of independence with self-care tasks. Current [facility] Daily Activity Score: 18 Precautions/Restrictions: aspiration, [...] in recliner, in NAD on RA, agreeable. 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 3 Bathing (including washing/rinsing/drying)? 2 Toileting (includes using toilet, bedpan, or urinal)? 2 Putting on and taking off upper body clothing? 3 Taking care of personal grooming such as brushing teeth? 4 Eating meals? 4 [facility] Daily Activity Score 18 Progress Summary (OT) Progress Toward Functional Goals (OT) progress toward functional goals is good Sign: Christen Tapia OT * Aditi Jones PA-C - 11/25/2024 11:50 AM EST PHYSICAL MEDICINE & REHABILITATION CONSULT FOLLOW-UP NOTE Patients Name: Blas Genao : 1960 MR Number: [id number] Reason for Consultation: Amputee rehab needs Date [...] acute CHFmrEF, pain. He is NWB to [facility]. Rehab Diagnosis: s/p left BKA Amputation: [...] support, tolerance to therapy and plan for oil heaterman antibiotics. He mayhave ability to progress to [...] mcg 2,500 mcg Oral Daily Corbin Lamb OUTLET MANAGER 2,500 mcg at 11/25/24 0932 DAPTOmycin (CUBICIN) [...] injection 5,000 Units 5,000 Units Subcutaneous Q8H [facility] Gianluca Calles MD 5,000 Units at [...] 3 mL Nebulization Q2H PRN Corbin Adonis, OUTLET MANAGER 3 mL at 11/07/24 1025 lactulose (ENULOSE) 10 gm/15 mL solution 20 g 20 g Oral Q4H PRN Corbin Adonis, OUTLET MANAGER melatonin tablet 3 mg 3 mg Oral Nightly PRN Corbin Adonis, OUTLET MANAGER 3 mg at 11/19/24 2222 methocarbamol (ROBAXIN) tablet 1,000 mg 1,000 mg Oral 4x Daily Corbin Adonis, OUTLET MANAGER 1,000 mg at 11/25/24 0934 metoPROLOL TARTRATE (LOPRESSOR) tablet 50 mg 50 mg Oral BID Corbin Adonis, OUTLET MANAGER 50 mg at 11/25/24 0935 multivitamin with minerals tablet 1 tablet 1 tablet Oral Daily Corbin Adonis, OUTLET MANAGER 1 tablet at 11/25/24 0935 naloxone (NARCAN) 0.4 mg/mL injection 0.4 mg 0.4 mg Intravenous Q5 Min PRN Corbin Adonis, OUTLET MANAGER naloxone (NARCAN) 0.4 mg/mL injection 0.4 mg 0.4 mg Intravenous Q5 Min PRN Corbin Adonis, OUTLET MANAGER nicotine (NICODERM CQ) 21 MG/24HR patch 1 patch 1 patch Transdermal Daily Corbin Adonis, OUTLET MANAGER 1 patch at 11/25/24 0930 ondansetron (ZOFRAN) injection 4 mg 4 mg Intravenous Q6H PRN Corbin Adonis, OUTLET MANAGER 4 mg at 11/17/24 1639 PANTOprazole (PROTONIX) EC tablet 40 mg 40 mg Oral Daily Corbin Adonis, OUTLET MANAGER 40 mg at 11/25/24 0935 polyethylene glycol (miraLAx) packet 17 g 17 g Oral Daily Corbin Adonis, OUTLET MANAGER 17 g at 11/25/24 0932 [Provider Held] pravastatin (PRAVACHOL) tablet 20 mg 20 mg Oral Daily Corbin Adonis, OUTLET MANAGER pregabalin (LYRICA) capsule 100 mg 100 mg Oral TID Corbin Adonis, OUTLET MANAGER 100 mg at 11/25/24 0935 senna-docusate (SENNA-S) [...] S/p Left BKA with ampushield and stump tin pourer C/D/I Skin: No skin breakdown to exposed [...] has been excellent throughout his stay at [facility]. Plan of Care Patient's plan of [...] Sanchez MD - 11/24/2024 3:17 PM EST [facility] MEDICINE PROGRESS NOTE Assessment & Plan Principal [...] while on IV antibiotics. Fax results to [phone] 4. Patient will need to be scheduled [...] again today. Upon arrival he had a count team member in the room with him.Waited outside for 20 minutes before moving on to other patients. Will attempt to meet with patientagain later this week to review stoplight previously provided. * Ena Mtz MD - 11/24/2024 11:24 AM EST Images from the original note were not included. [facility] INFECTIOUS DISEASE Consult progress Note Name: [...] while on IV antibiotics. Fax results to [phone] 4. Patient will need to be scheduled for repeat TATIANNA end of November. Patient would like to get this done at [facility] He can follow-up with me on [...] 0849 Sign Ena Mtz MD, FACP, SP [facility] Infect[facility] Diseases Available via [employer] SUBJECTIVE Remains in the hospital awaiting placement [...] not compromised. This report was generated using [employer] dictation software. Although every attempt has been made by the provider to proofread this document, occasional misspellings and typographical errors may still be present. * Gianluca Calles MD - 11/23/2024 3:06 PM EST [facility] MEDICINE PROGRESS NOTE Assessment & Plan Principal [...] MD 11/23/2024 3:06 PM * Milan Vale E BUSINESS SPECIALIST - 11/23/2024 2:03 PM EST Physical Therapy [...] level of independence with functional mobility. Current [facility] Basic Mobility Score: (P) 18 Rehab [...] upon arrival, RN in room. Ampushield and tin pourer inplace. Both agreeable for tx Existing Precautions/Restrictions [...] Progressive Mobility Progressive Mobility Level Achieved Ambulation [facility] Basic Mobility Turning from your back [...] Climbing 3-5 steps with a railing? 1 [facility] Basic Mobility Score 18 Therapy Assessment/Plan [...] c/w Jardiance - regarding the question of senior care PICC for Abx, patient high risk for PICC and proline placed instead on 11/19/24 - Patient should follow up with his outpatient straw baler on discharge and get repeat lab work [...] found for: TACROLIMUS No results found for: [id number] , TOTVOL , CRCLR , PERIOD No [...] Sign: Isabel Lee PA-C 11/23/2024 7:24 AM [facility] Nephrology Office [phone] Associated attestation - Anmol Reynoso MD - [...] - Patient can follow-up with his outpatient straw baler upon discharge. Sign: Anmol Reynoso MD 11/23/2024 2:54 PM * Luz Escobedo RN - 11/22/2024 2:40 PM EST Attached media from the original note were not included. [employer] AV leadless Pacemaker evaluation completed on B10E. Per patient request and verbal order SharronSHUBHAM Pitts: LRL increased from 50 bpm to 60 bpm. Presenting rhythm: AM/DRAFTER PLUMBING @ 62 bpm. Underlying rhythm: CHB. AM/DRAFTER PLUMBING pacing 81%, with total V-pacing 100%. Battery [...] level of independence with self-care tasks. Current [facility] Daily Activity Score: 16 Precautions/Restrictions: aspiration, [...] Progressive Mobility Progressive Mobility Level Achieved Ambulation [facility] Daily Activity Putting on and taking off Lower Body Clothing? 3 Bathing (including washing/rinsing/drying)? 2 Toileting (includes using toilet, bedpan, or urinal)? 2 Putting on and taking off upper body clothing? 3 Taking care of personal grooming such as brushing teeth? 3 Eating meals? 3 [facility] Daily Activity Score 16 Progress Summary [...] syndrome. Followed chronically by Dr Lopez in [place] Cr peak this admission 2.1mg/dL in the setting of bacteremia and endocarditis. 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 Overall suggesting a hemodynamic renal injury improved with aggressive diuresis Net -27L Cr downtrended with diuretic holiday Plan: - Ok to restart PO bumex 2mg daily - c/w Jardiance - regarding the question of senior care PICC for Abx, patient high risk for [...] found for: TACROLIMUS No results found for: [id number] , TOTVOL , CRCLR , PERIOD No [...] Sign: Anmol Reynoso MD 11/22/2024 9:34 AM [facility] Nephrology Office [phone] * Roberto Carranza PTA - 11/22/2024 8:46 [...] level of independence with functional mobility. Current [facility] Basic Mobility Score: 16 Rehab Plan [...] is feeling better today. Flowsheet Data 11/22/24 0814 Physical Therapy Time and Intention PT Follow-Up [...] Progressive Mobility Level Achieved Transferring to Chair [facility] Basic Mobility Turning from your back [...] Climbing 3-5 steps with a railing? 1 [facility] Basic Mobility Score 16 Therapy Assessment/Plan [...] included. [facility] PROGRESS NOTE Outpatient Director Of Casework: [facility] Assessment & Plan Assessment 63 year old male with hypertension, hyperlipidemia, diabetes, CKD stage III, peripheral artery disease, diabetes, foot infection with osteomyelitis, complete heart block s/p dual chamber pacemaker [id number], atrial fibrillation s/p multiple ablations and cardioversions [...] by 8 bpm Confirmed by MD [facility] ([id number]) on 11/07/2024 6:25:53 PM TATIANNA [...] Compared to previous outside study report from [facility] on 08/05/2024, Mitral and tricuspid regurgitation were not previously reported. Recommend transesophageal echocardiogram if clinically indicated. Brain MRI 11/12/2024 No acute intracranial findings or suspicious intracranial lesions. No septic emboli. All additional appropriate imaging studies within the past 24 hours reviewed - images reviewed and independently interpreted. Sign Gema Jane APRN [facility] [place] 11/22/2024 8:19 AM * Jose Adair MD [...] found for: TACROLIMUS No results found for: [id number] , TOTVOL , CRCLR , PERIOD No results found for: IRON , TIBC , IRONSAT , UIBC Lab Results Component Value Date BILITOT 0.2 11/17/2024 AST 24 11/17/2024 Sign: Jose Adair MD 11/21/2024 2:23 PM * Gianluca Calles MD - 11/21/2024 12:02 PM EST [facility] MEDICINE PROGRESS NOTE Assessment & Plan Principal [...] MD 11/20/2024 11:44 AM * Elsy Berna, OUTLET MANAGER - 11/20/2024 9:23 AM EST Inpatient Nephrology [...] Held] heparin (porcine), 5,000 Units, Subcutaneous, Q8H [facility] insulin glargine, 10 Units, Subcutaneous, Daily insulin [...] found for: TACROLIMUS No results found for: [id number] , TOTVOL , CRCLR , PERIOD No results found for: IRON , TIBC , IRONSAT , UIBC Lab Results Component Value Date BILITOT 0.2 11/17/2024 AST 24 11/17/2024 Signed: Elsy Coronel APRN 11/20/2024 9:23 AM Associated attestation - Jose Adair MD - 11/20/2024 6:31 PM EST ATTESTATION: This encounter was done in conjunction with [employer]. I provided the substantive portion of thevisit [...] Calles MD - 11/19/2024 2:22 PM EST [facility] MEDICINE PROGRESS NOTE Assessment & Plan Principal [...] from the original note were not included. [facility] INFECTIOUS DISEASE Consult progress Note Name: [...] while on IV antibiotics. Fax results to [phone] 4. Patient will need to be scheduled for repeat TATIANNA end of November Patient would like to follow-up with infectious disease close to home. I have communicated with Dr. Saritha Coffey office (infectious disease) at [phone]. She stated that this patient is very complicated for [facility] and she will not be following this patient He can follow-up with me in my office in 3 to 4 weeks. I would recommend that he be scheduled for repeat TATIANNA end of November at here at [facility] Current antibiotic/day of therapy: Anti-infectives (From [...] Ena Mtz MD, FACP, CWSP [facility] Infectious Diseases Available via [employer] SUBJECTIVE Afebrile, status post AICD extraction CURRENT [...] care and coordination of care with his [id number] infectious disease physician and office Of note, some information is being carried forward from prior records for informational purposes only and is being cited so that efficiency, safety and quality of this patient's care is not compromised. This report was generated using [employer] dictation software. Although every attempt has been [...] left stoplight for his review and will elim ira back next week to review with the patient. * Valencia Lau APRN - 11/19/2024 8:02 AM EST Images from the original note were not included. [facility] [place] CARDIOLOGY PROGRESS NOTE Outpatient Director Of Casework: [facility] Assessment & Plan Assessment 63 year old male with hypertension, hyperlipidemia, diabetes, CKD stage III, peripheral artery disease, diabetes, foot infection with osteomyelitis, complete heart block s/p dual chamber pacemaker [id number], atrial fibrillation s/p multiple ablations and cardioversions [...] injection 5,000 Units On hold since Fri11/16/2024 [id number] until manually unheld; held by Herberth Whitmore [...] by 8 bpm Confirmed by MD [facility] ([id number]) on 11/07/2024 6:25:53 PM TATIANNA [...] Compared to previous outside study report from [facility] on 08/05/2024, Mitral and tricuspid regurgitation were not previously reported. Recommend transesophageal echocardiogram if clinically indicated. Brain MRI 11/12/2024 No acute intracranial findings or suspicious intracranial lesions. No septic emboli. All additional appropriate imaging studies within the past 24 hours reviewed - images reviewed and independently interpreted. Sign Valencia Lau APRN [facility] [place] 11/19/2024 8:54 AM * Lela Amor MD [...] interrogation ordered for post- OP. Presenting rhythm: AM-DRAFTER PLUMBING @ 69 bpm. Underlying rhythm: No ventricular response greater than 40 bpm. AM-DRAFTER PLUMBING @ 84.8%. Battery and device parameters evaluated [...] following is my assessment: Reason For Order: Junior Buyer Orders Ordered Cardiac monitoring / telemetry Until [...] Name: Blas Genao : 1960 MR Number: [id number] Reason for Consultation: Rehabilitation potential Date of [...] acute CHFmrEF, pain. He is NWB to [facility]. Rehab Diagnosis: s/p left BKA Amputation: [...] support, tolerance to therapy and plan for long-term antibiotics. Will follow progress with therapy. Sleep: [...] tablet 975 mg 975 mg Oral Q6H [facility] Corbin Lamb, OUTLET MANAGER 975 mg at 026 acetaminophen (TYLENOL) tablet 975 mg 975 mg Oral Q6H PRN Corbin Lamb OUTLET MANAGER amiODARONE (PACERONE) tablet 200 mg 200 mg Oral Daily Corbindenise Lamb, OUTLET MANAGER 200 mg at 11/18/24 1030 amLODIPine (NORVASC) tablet 10 mg 10 mg Oral Daily Corbin Lamb, OUTLET MANAGER 10 mg at 11/18/24 1029 benzocaine-menthol (CHLORASEPTIC) 6-10 MG lozenge 1 lozenge 1 lozenge Mouth/Throat Q2H PRN RoshelleM Tappin, OUTLET MANAGER bisacodyl (DULCOLAX) suppository 10 mg 10 mg Rectal Daily PRN Corbin Lamb OUTLET MANAGER bumetanide (BUMEX) injection 1 mg 1 mg Intravenous Q24H Corbin Lamb, OUTLET MANAGER 1 mg at 11/18/24 1103 buPROPion (WELLBUTRIN SR) 12 hr tablet 150 mg 150 mg Oral BID Corbin Lamb, OUTLET MANAGER 150 mg at 11/18/24 1028 calcium carbonate (TUMS) chewable tablet 1,000 mg 1,000 mg Oral Q12H PRN Corbindenise Lamb OUTLET MANAGER calcium citrate (CALCITRATE) tablet 950 mg 950 mg Oral BID with meals Corbin Adonis, OUTLET MANAGER 950 mgat 11/18/24 1105 carboxymethylcellulose (REFRESH PLUS) 0.5 % ophthalmic solution 2 drop 2 drop Each Eye Q2H PRN Gretel Hinds APRN cefTRIAXone (ROCEPHIN) 2 g in sodium chloride-MBP (NS) 100 mL IVPB-MBP 2 g Intravenous Q24H MD Dylan 200 mL/hr at 11/18/24 1235 2 g at 11/18/24 1235 chlorhexidine gluconate 2 % wipes - urethral catheter CHG application Topical Daily Corbin Lamb OUTLET MANAGER Given at 11/18/24 1031 cholecalciferol tablet 2,000 Units 2,000 Units Oral Daily Corbin Lamb, OUTLET MANAGER 2,000 Units at 11/18/24 1103 cyanocobalamin (VITAMIN B-12) tablet 2,500 mcg 2,500 mcg Oral Daily Corbin Lamb OUTLET MANAGER 2,500 mcg at 11/18/24 1027 DAPTOmycin (CUBICIN) 975 mg in sodium chloride (NS) 0.9 % 50 mL IVPB 10 mg/kg (Adjusted) Intravenous Q24H Corbin Lamb APRN 0 mL/hr at 11/16/24 1712 975 mg at 11/17/24 1420 donepezil (ARICEPT) tablet 10 mg 10 mg Oral QAM Corbin Lamb OUTLET MANAGER 10 mg at 11/18/24 1105 [Provider Held] empagliflozin (JARDIANCE) 25 mg 25 mg Oral Daily Corbin Lamb OUTLET MANAGER 25 mg at 11/04/24 0756 folic acid (FOLVITE) tablet 1 mg 1 mg Oral Daily Corbin Lamb OUTLET MANAGER 1 mg at 11/18/24 1028 [Provider Held] glimepiride (AMARYL) tablet 2 mg 2 mg Oral Daily with breakfast Corbin Lamb OUTLET MANAGER 2 mg at 11/04/24 0757 [Provider Held] heparin (porcine) 5000 unit/mL injection 5,000 Units 5,000 Units Subcutaneous Q8H [facility] Corbin Lamb OUTLET MANAGER 5,000 Units at 11/16/24 1714 HYDROmorphone (DILAUDID) tablet 2 mg 2 mg Oral Q3H PRN Corbin Lamb OUTLET MANAGER 2 mg at 11/18/24 1030 HYDROmorphone (DILAUDID) tablet 4 mg 4 mg Oral Q3H PRN Corbindenise Lamb, OUTLET MANAGER 4 mg at 11/16/24 2213 insulin glargine (LANtus/SEMGLEE) 100 units/mL injection 10 Units 10 Units Subcutaneous Daily Corbin Adonis, OUTLET MANAGER 10 Units at 11/18/24 1032 insulin lispro (HumaLOG/ADMELOG) 100 units/mL injection 1-6 Units 1-6 Units Subcutaneous TID with meals Corbindenise Lamb OUTLET MANAGER 3 Units at 11/18/24 1232 insulin lispro (HumaLOG/ADMELOG) 100 units/mL injection 3 Units 3 Units Subcutaneous TID with mealsNiccarmen Lamb OUTLET MANAGER 3 Units at 11/18/24 1232 ipratropium-albuterol (DUONEB) 0.5-2.5 mg/3 mL nebulizer solution 3 mL 3 mL Nebulization Q2H PRN Corbindenise Lamb, OUTLET MANAGER 3 mL at 11/07/24 1025 lactulose (ENULOSE) 10 gm/15 mL solution 20 g 20 g Oral Q4H PRN Corbin Lamb OUTLET MANAGER melatonin tablet 3 mg 3 mg Oral Nightly PRN Corbindenise Lamb OUTLET MANAGER 3 mg at 11/16/24 2215 methocarbamol (ROBAXIN) tablet 1,000 mg 1,000 mg Oral 4x Daily Corbindenise Lamb, OUTLET MANAGER 1,000 mg at 11/18/24 1105 metoPROLOL TARTRATE (LOPRESSOR) tablet 50 mg 50 mg Oral BID Corbin Lamb, OUTLET MANAGER 50 mg at 11/18/24 1031 multivitamin with minerals tablet 1 tablet 1 tablet Oral Daily Corbindenise Lamb, OUTLET MANAGER 1 tablet at 11/18/24 1028 naloxone (NARCAN) 0.4 mg/mL injection 0.4 mg 0.4 mg Intravenous Q5 Min PRN Corbindenise Lamb OUTLET MANAGER naloxone (NARCAN) 0.4 mg/mL injection 0.4 mg 0.4 mg Intravenous Q5 Min PRN Corbindenise Lamb OUTLET MANAGER nicotine (NICODERM CQ) 21 MG/24HR patch 1 patch 1 patch Transdermal Daily Corbin Adonis, OUTLET MANAGER 1 patch at 11/18/24 1030 ondansetron (ZOFRAN) injection 4 mg 4 mg Intravenous Q6H PRN Corbindenise Lamb, OUTLET MANAGER 4 mg at 11/17/24 1639 PANTOprazole (PROTONIX) EC tablet 40 mg 40 mg Oral Daily Corbin Adonis, OUTLET MANAGER 40 mg at 11/18/24 1029 polyethylene glycol (miraLAx) packet 17 g 17 g Oral Daily Corbin Adonis, OUTLET MANAGER 17 g at 11/18/24 1040 [Provider Held] pravastatin (PRAVACHOL) tablet 20 mg 20 mg Oral Daily Corbin Adonis, OUTLET MANAGER pregabalin (LYRICA) capsule 100 mg 100 mg Oral TID Corbin Adonis, OUTLET MANAGER 100 mg at 11/18/24 1105 senna-docusate (SENNA-S) 8.6-50 MG tablet 2 tablet 2 tablet Oral BID Corbin Adonis, OUTLET MANAGER 2 tablet at 11/18/24 1032 thiamine mononitrate (VITAMIN B-1) tablet 200 mg 200 mg Oral Daily Corbin Adonis, OUTLET MANAGER 200 mg at11/18/24 1031 Physical Exam: Vitals: [...] S/p Left BKA with ampushield and stump tin pourer C/D/I Skin: No skin breakdown to exposed [...] interrogation ordered for post- OP. Presenting rhythm: AM-DRAFTER PLUMBING @ 69 bpm. Underlying rhythm: No ventricular response greater than 40 bpm. AM-DRAFTER PLUMBING @ 84.8%. Battery and device parameters evaluated [...] from the original note were not included. [facility] INFECTIOUS DISEASE Consult progress Note Name: [...] try to reach Dr. Saritha Coffey at [facility] tomorrow Current antibiotic/day of therapy: Anti-infectives [...] Ena Mtz MD, FACP, CWSP [facility] Infectious Diseases Available via [employer] SUBJECTIVE Afebrile, status post AICD extraction [...] not compromised. This report was generated using Chik[employer] Speaking dictation software. Although every attempt has been made by the provider to proofread this document, occasional misspellings and typographical errors may still be present. * Valencia Lau APRN - 11/18/2024 8:48 AM EST Images from the original note were not included. [facility] Outpatient Director Of Casework: [facility] Assessment & Plan Assessment 63 year old male with hypertension, hyperlipidemia, diabetes, CKD stage III, peripheral artery disease, diabetes, foot infection with osteomyelitis, complete heart block s/p dual chamber pacemaker [id number], atrial fibrillation s/p multiple ablations and cardioversions [...] injection 5,000 Units On hold since Fri11/16/2024 [id number] until manually unheld; held by Herberth Whitmore [...] by 8 bpm Confirmed by MD Claude, [facility] ([id number]) on 11/07/2024 6:25:53 PM TATIANNA [...] Compared to previous outside study report from [facility] on 08/05/2024, Mitral and tricuspid regurgitation were not previously reported. Recommend transesophageal echocardiogram if clinically indicated. Brain MRI 11/12/2024 No acute intracranial findings or suspicious intracranial lesions. No septic emboli. All additional appropriate imaging studies within the past 24 hours reviewed - images reviewed and independently interpreted. Sign Valencia Lau APRN [facility] [place] 11/18/2024 8:48 AM * Cristina Rodriguez APRN [...] Department Center 12/07/2024 1:30 PM ROOM, ICD/PACER/LOOP [facility] ARRHY [facility] Arrhythmi Current Facility-Administered Medications: acetaminophen (TYLENOL) tablet 975 mg, 975 mg, Oral, Q6H JUDSON, Corbin Adonis, OUTLET MANAGER, 650 mg at 11/18/24 0305 acetaminophen (TYLENOL) tablet 975 mg, 975 mg, Oral, Q6H PRN, Corbin Adonis, OUTLET MANAGER amiODARONE (PACERONE) tablet 200 mg, 200 mg, Oral, Daily, Corbin Adonis, OUTLET MANAGER, 200 mg at 11/17/24 0813 amLODIPine (NORVASC) tablet 10 mg, 10 mg, Oral, Daily, Corbin Adonis, OUTLET MANAGER, 10 mg at 11/17/24 0816 benzocaine-menthol (CHLORASEPTIC) 6-10 MG lozenge 1 lozenge, 1 lozenge, Mouth/Throat, Q2H PRN, Gretel Hinds APRN bisacodyl (DULCOLAX) suppository 10 mg, 10 mg, Rectal, Daily PRN, Corbin Lamb OUTLET MANAGER bumetanide (BUMEX) injection 1 mg, 1 mg, Intravenous, Q24H, Corbin Lamb OUTLET MANAGER, 1 mg at 11/17/24 0813 buPROPion (WELLBUTRIN SR) 12 hr tablet 150 mg, 150 mg, Oral, BID, Corbin Adonis, OUTLET MANAGER, 150 mg at11/17/24 2125 calcium carbonate (TUMS) chewable tablet 1,000 mg, 1,000 mg, Oral, Q12H PRN, Corbin Adonis, OUTLET MANAGER calcium citrate (CALCITRATE) tablet 950 mg, 950 mg, Oral, BID with meals, Corbin Adonis, OUTLET MANAGER, 950 mg at 11/17/24 0813 carboxymethylcellulose (REFRESH PLUS) 0.5 % ophthalmic solution 2 drop, 2 drop, Each Eye, Q2H PRN, Gretel Hinds, OUTLET MANAGER chlorhexidine gluconate 2 % wipes - urethral catheter CHG application, , Topical, Daily, Corbin Adonis, OUTLET MANAGER cholecalciferol tablet 2,000 Units, 2,000 Units, Oral, Daily, Corbin Adonis, OUTLET MANAGER, 2,000 Units at 11/17/24 0815 cyanocobalamin (VITAMIN B-12) tablet 2,500 mcg, 2,500 mcg, Oral, Daily, Corbin Adonis, OUTLET MANAGER, 2,500 mcg at 11/17/24 0814 DAPTOmycin (CUBICIN) 975 mg in sodium chloride (NS) 0.9 % 50 mL IVPB, 10 mg/kg (Adjusted), Intravenous, Q24H, Corbin Adonis, OUTLET MANAGER, Last Rate: 0 mL/hr at 11/16/24 1712, 975 mg at 11/17/24 1420 donepezil (ARICEPT) tablet 10 mg, 10 mg, Oral, QAM, Corbin Adonis, OUTLET MANAGER, 10 mg at 11/17/24 0816 [Provider Held] empagliflozin (JARDIANCE) 25 mg, 25 mg, Oral, Daily, Corbin Adonis, OUTLET MANAGER, 25 mg at 11/04/24 0756 folic acid (FOLVITE) tablet 1 mg, 1 mg, Oral, Daily, Corbin Adonis, OUTLET MANAGER, 1 mg at 11/17/24 0813 [Provider Held] glimepiride (AMARYL) tablet 2 mg, 2 mg, Oral, Daily with breakfast, Corbin Adonis, OUTLET MANAGER, 2 mg at 11/04/24 0757 [Provider Held] heparin (porcine) 5000 unit/mL injection 5,000 Units, 5,000 Units, Subcutaneous, Q8H JUDSON, Corbindenise Lamb, OUTLET MANAGER, 5,000 Units at 11/16/24 1714 HYDROmorphone (DILAUDID) tablet 2 mg, 2 mg, Oral, Q3H PRN, Corbin Adonis, OUTLET MANAGER, 2 mg at 540 HYDROmorphone (DILAUDID) tablet 4 mg, 4 mg, Oral, Q3H PRN, Corbindenise Lamb, OUTLET MANAGER, 4 mg at 213 insulin glargine (LANtus/SEMGLEE) 100 units/mL injection 10 Units, 10 Units, Subcutaneous, Daily, Corbin Lamb OUTLET MANAGER insulin lispro (HumaLOG/ADMELOG) 100 units/mL injection 1-6 Units, 1-6 Units, Subcutaneous, TID with meals, Corbin Lamb, OUTLET MANAGER, 1 Units at 11/17/24 1856 insulin lispro (HumaLOG/ADMELOG) 100 units/mL injection 3 Units, 3 Units, Subcutaneous, TID with meals, Corbin Lamb, OUTLET MANAGER, 3 Units at 11/17/24 1213 ipratropium-albuterol (DUONEB) 0.5-2.5 mg/3 mL nebulizer solution 3 mL, 3 mL, Nebulization, Q2H PRN, Corbin Lamb, OUTLET MANAGER, 3 mL at 11/07/24 1025 lactulose (ENULOSE) 10 gm/15 mL solution 20 g, 20 g, Oral, Q4H PRN, Corbin Lamb, OUTLET MANAGER melatonin tablet 3 mg, 3 mg, Oral, Nightly PRN, Corbin Adonis, OUTLET MANAGER, 3 mg at 11/16/24 2215 methocarbamol (ROBAXIN) tablet 1,000 mg, 1,000 mg, Oral, 4x Daily, Corbin Adonis, OUTLET MANAGER, 1,000 mgat 11/17/242125 metoPROLOL TARTRATE (LOPRESSOR) tablet 50 mg, 50 mg, Oral, BID, Corbin Adonis, OUTLET MANAGER, 50 mg at 11/17/242123 multivitamin with minerals tablet 1 tablet, 1 tablet, Oral, Daily, Corbin Adonis, OUTLET MANAGER, 1 tabletat 11/17/24 0816 naloxone (NARCAN) 0.4 mg/mL injection 0.4 mg, 0.4 mg, Intravenous, Q5 Min PRN, Corbin Adonis, OUTLET MANAGER naloxone (NARCAN) 0.4 mg/mL injection 0.4 mg, 0.4 mg, Intravenous, Q5 Min PRN, Corbin Adonis, OUTLET MANAGER nicotine (NICODERM CQ) 21 MG/24HR patch 1 patch, 1 patch, Transdermal, Daily, Corbin Adonis, OUTLET MANAGER, 1 patch at 11/17/24 0816 ondansetron (ZOFRAN) injection 4 mg, 4 mg, Intravenous, Q6H PRN, Corbin Adonis, OUTLET MANAGER, 4 mg at 11/17/24 1639 PANTOprazole (PROTONIX) EC tablet 40 mg, 40 mg, Oral, Daily, Corbin Adonis, OUTLET MANAGER, 40 mg at 11/17/24 0815 polyethylene glycol (miraLAx) packet 17 g, 17 g, Oral, Daily, Corbin Adonis, OUTLET MANAGER, 17 g at 11/17/24 1212 [Provider Held] pravastatin (PRAVACHOL) tablet 20 mg, 20 mg, Oral, Daily, Corbin Adonis, OUTLET MANAGER pregabalin (LYRICA) capsule 100 mg, 100 mg, Oral, TID, Corbin Adonis, OUTLET MANAGER, 100 mg at 11/17/24 2124 senna-docusate (SENNA-S) 8.6-50 MG tablet 2 tablet, 2 tablet, Oral, BID, Corbin Adonis, OUTLET MANAGER, 2 tablet at 11/17/245 thiamine mononitrate (VITAMIN B-1) tablet 200 mg, 200 mg, Oral, Daily, Corbin Adonis, OUTLET MANAGER, 200 mg at 11/17/24 0814 Vitals: 11/18/24 [...] (218 lb 11.1 oz) Height: Cristina Rodriguez, OUTLET MANAGER 11/18/24 9:18 AM Addendum: From an EP perspective, he can re-start his Eliquis today. Cristina Rodriguez, OUTLET MANAGER 11/18/24 9:19 AM * Sri Pena RN - 11/18/2024 8:25 AM EST Attached media from the original note were not included. Pacemaker evaluation completed on B10E, device interrogation ordered for post- OP. Presenting rhythm: AM-DRAFTER PLUMBING @ 69 bpm. Underlying rhythm: No ventricular response greater than 40 bpm. AM-DRAFTER PLUMBING @ 84.8%. Battery and device parameters evaluated [...] level of independence with self-care tasks. Current [facility] Daily Activity Score: 16 Precautions/Restrictions: fall, aspiration, pacemaker, isolation: contact, weight bearing (NWBing to L residual limb with tin pourer and nutmeggar in place, skin) Rehab Plan [...] bearing (NWBing to L residual limb with tin pourer and nutmeggar in place, skin) Pain Assessment [...] Progressive Mobility Level Achieved Edge of Bed [facility] Daily Activity Putting on and taking off Lower Body Clothing? 3 Bathing (including washing/rinsing/drying)? 2 Toileting (includes using toilet, bedpan, or urinal)? 2 Putting on and taking off upper body clothing? 3 Taking care of personal grooming such as brushing teeth? 3 Eating meals? 3 [facility] Daily Activity Score 16 Therapy Assessment/Plan [...] OT) goal ongoing Bathing Goal 1 (OT) Hitchcock Level/Cues Needed (Bathing Goal 1, OT) minimum [...] Frame (Dressing Goal 1, OT) 1 week Hitchcock/Cues Needed (Dressing Goal 1, OT) minimum assist (75% or more patient effort) Toileting Goal 1 (OT) Activity/Device (Toileting Goal 1, OT) toileting skills, all Progress/Outcome (Toileting Goal 1, OT) goal revised this date Time Frame (Toileting Goal 1, OT) 1 week Hitchcock Level/Cues Needed (Toileting Goal 1, OT) minimum assist (75% or more patient effort) Sign: Katy Rodgers, OT * Valencia Lau APRN - 11/17/2024 10:51 AM EST Images from the original note were not included. [place] [facility] PROGRESS NOTE Outpatient Director Of Casework: [facility] Assessment & Plan Assessment 63 year old male with hypertension, hyperlipidemia, diabetes, CKD stage III, peripheral artery disease, diabetes, foot infection with osteomyelitis, complete heart block s/p dual chamber pacemaker [id number], atrial fibrillation s/p multiple ablations and cardioversions [...] Bumex 1 mg daily today -BNP downtrending [phone] -Closely monitor renal function and electrolytes with [...] -Pacer interrogation 11/11/24: Presenting rhythm: AP / DRAFTER PLUMBING @ 60 bpm. Underlying rhythm: SB @ [...] by 8 bpm Confirmed by MD Claude, [facility] ([id number]) on 11/07/2024 6:25:53 PM TATIANNA [...] Compared to previous outside study report from [facility] on 08/05/2024, Mitral and tricuspid regurgitation were not previously reported. Recommend transesophageal echocardiogram if clinically indicated. Brain MRI 11/12/2024 No acute intracranial findings or suspicious intracranial lesions. No septic emboli. All additional appropriate imaging studies within the past 24 hours reviewed - images reviewed and independently interpreted. Sign Valencia Lau APRN [facility] [place] 11/17/2024 10:51 AM Associated attestation - Devon [...] Powers MD - 11/17/2024 10:06 AM EST [facility] MEDICINE PROGRESS NOTE Assessment & Plan Principal [...] for PT follow up. L residual limb tin pourer and nutmegger donned. Performed bed mobility and [...] level of independence with functional mobility. Current [facility] Basic Mobility Score: 16 Rehab Plan [...] Progressive Mobility Level Achieved Transferring to Chair [facility] Basic Mobility Turning from your back [...] Climbing 3-5 steps with a railing? 1 [facility] Basic Mobility Score 16 Therapy Assessment/Plan [...] from the original note were not included. [facility] INFECTIOUS DISEASE Consult progress Note Name: [...] 0849 Sign Ena Mtz MD, FACP, CWSP [facility] Infectious Diseases Available via [employer] SUBJECTIVE Afebrile. No new complaints Feels better. [...] not compromised. This report was generated using [employer] Naturally Speaking dictation software. Although every attempt [...] were not included. Coverage for Dr. Mtz [facility] ID Progress Note Name: Blas Genao Age: [...] Soft, nontender Extremities: Left BKA stump with tin pourer garment, and ampul sheIld LABORATORY AND DIAGNOSTIC [...] was performed in office at [facility] and images reviewed by orthopedic provider. Any [...] not compromised This report was generated using Chik[employer] Speaking dictation software. Although every attempt has been made by the provider to proofread this document, occasional misspellings and typographical errors Sign Chris Taylor MD, FIDSA, [facility] Infectious Diseases Available via [employer] 11/16/2024 11:27 AM * Maddison Villalpando MD - 11/15/2024 5:16 PM EST [facility] MEDICINE PROGRESS NOTE Assessment & Plan Brief [...] were not included. Coverage for Dr. Mtz [facility] ID Progress Note Name: Blas Genao [...] faecium -10/27: Left foot wound culture at [place]: MRSA, Enterococcus faecalis, VRE, Corynebacterium species and [...] was performed in office at [facility] and images reviewed by orthopedic provider. Any [...] 150 mg 150 mg Oral BID Luis eDgroot MD 150 mg at 11/15/24 0850 calcium [...] mL IVPB 10 mg/kg (Adjusted) Intravenous Q24H Lius Degroot MD Stopped at 11/14/24 1417 donepezil [...] injection 5,000 Units 5,000 Units Subcutaneous Q8H [facility] Luis Degroot MD 5,000 Units at [...] not compromised This report was generated using [employer] Speaking dictation software. Although every attempt has been made by the provider to proofread this document, occasional misspellings and typographical errors Sign Chris Taylor MD, [facility], [facility] Infectious Diseases Available via [employer] 11/15/2024 1:10 PM * Devon Lazo MD - 11/15/2024 1:00 PM EST Images from the original note were not included. [place] [facility] PROGRESS NOTE Outpatient Director Of Casework: Assessment & Plan Assessment 63 year old male with hypertension, hyperlipidemia, diabetes, CKD stage III, peripheral artery disease, diabetes, foot infection with osteomyelitis, complete heart block s/p dual chamber pacemaker [id number], atrial fibrillation s/p multiple ablations and cardioversions [...] by 8 bpm Confirmed by MD Claude, [facility] ([id number]) on 11/07/2024 6:25:53 PM All additional appropriate imaging studies within the past 24 hours reviewed - images reviewed and independently interpreted. Sign Devon Lzao MD [facility] [place] 11/15/2024 1:00 PM * Elida Ab OT [...] Patient is highly motivated to return to [facility] and reports good family support [...] level of independence with self-care tasks. Current [facility] Daily Activity Score: 17 Precautions/Restrictions: fall, [...] Progressive Mobility Level Achieved Transferring to Chair [facility] Daily Activity Putting on and taking off Lower Body Clothing? 3 Bathing (including washing/rinsing/drying)? 2 Toileting (includes using toilet, bedpan, or urinal)? 2 Putting on and taking off upper body clothing? 3 Taking care of personal grooming such as brushing teeth? 3 Eating meals? 4 [facility] Daily Activity Score 17 Therapy Assessment/Plan [...] pain Pharmacy pain management will sign off. Oilmpia Lainez, FanyD * Maddison Villalpando MD - 11/14/2024 2:48 PM EST [facility] MEDICINE PROGRESS NOTE Assessment & Plan Brief [...] Villalpando MD - 11/13/2024 3:26 PM EST [facility] MEDICINE PROGRESS NOTE Assessment & Plan Brief [...] from the original note were not included. [facility] Progress Note Date of admission:11/02/2024 Today's date: 11/13/2024 Primary Director Of Casework: [facility] Assessment & Plan 63 year old male with hypertension, hyperlipidemia, diabetes, CKD stage III, peripheral artery disease, diabetes, foot infection with osteomyelitis, complete heart block s/p dual chamber pacemaker [id number], atrial fibrillation s/p multiple ablations and cardioversions [...] -Pacer interrogation 11/11/24: Presenting rhythm: AP / DRAFTER PLUMBING @ 60 bpm. Underlying rhythm: SB @ [...] pain, dizziness, palpitations, syncope Objective: Telemetry Reviewed: DRAFTER PLUMBING 60 Last Vitals Pulse:63,Resp:18,BP:116/60,SpO2:96 %,Weight:120 kg (264 [...] at 1503 until manually unheld; held by uJaquin Kern MDHold Reason: Pre-procedure On hold since [...] Compared to previous outside study report from [facility] on 08/05/2024, Mitral and tricuspid [...] Villalpando MD - 11/12/2024 4:39 PM EST [facility] MEDICINE PROGRESS NOTE Assessment & Plan Brief [...] Danielle MD - 11/12/2024 3:33 PM EST [facility] ID Progress Note Length of Stay: [...] final timing Time spent on chart/literature review, [id number] discussion and exam with patient, and documentation: [...] Resolved Problems: Noemí Danielle MD Available on [employer] 11/12/2024 3:33 PM * POOJA Allen - 11/12/2024 11:59 AM EST Images from the original note were not included. [facility] Progress Note Date of admission:11/02/2024 Today's date: 11/12/2024 Primary Director Of Casework: [facility] Assessment & Plan 63 year old male with hypertension, hyperlipidemia, diabetes, CKD stage III, peripheral artery disease, diabetes, foot infection with osteomyelitis, complete heart block s/p dual chamber pacemaker [id number], atrial fibrillation s/p multiple ablations and cardioversions [...] for now - will need follow up TATIANAN in 1 week -continue IV antibiotics per [...] Pacer eval 11/11/24: Presenting rhythm: AP / DRAFTER PLUMBING @ 60 bpm. Underlying rhythm: SB @ [...] No lightheadedness or dizziness. Objective: Telemetry Reviewed: DRAFTER PLUMBING 60 Last Vitals Pulse:67,Resp:18,BP:(!) 113/53,SpO2:(!) 91 %,Weight:120 [...] empagliflozin (JARDIANCE) 25 mg On hold since [facility] 11/04/2024 at 1503 until manually unheld; [...] Compared to previous outside study report from [facility] on 08/05/2024, Mitral and tricuspid [...] PM EST I agree with the pharmacy technician note. * Elida Berger, OT - 11/12/2024 [...] Patient is highly motivated to return to [facility] and reports good family support [...] level of independence with self-care tasks. Current [facility] Daily Activity Score: 16 Precautions/Restrictions: fall, [...] Progressive Mobility Level Achieved Transferring to Chair [facility] Daily Activity Putting on and taking off Lower Body Clothing? 2 Bathing (including washing/rinsing/drying)? 2 Toileting (includes using toilet, bedpan, or urinal)? 2 Putting on and taking off upper body clothing? 3 Taking care of personal grooming such as brushing teeth? 3 Eating meals? 4 [facility] Daily Activity Score 16 Therapy Assessment/Plan [...] ordered for function. Presenting rhythm: AP / DRAFTER PLUMBING @ 60 bpm. Underlying rhythm: SB @ [...] of 40-44% and patent foramina well with [id number] shunting and moderate to severe TR MRI [...] concerns validated and emotional support provided; nurse medicine and health service manager made aware. Resources: Patient informed of the following resources and how to request it: Integrative Medicine Services available at [facility], including, Massage Therapy, and Reiki/Energy Therapy Social [...] were not included. Cover[facility]. Mtz [facility] Progress Note Name: Blas Genao Age: [...] faecium -10/27: Left foot wound culture at [place]: MRSA, Enterococcus faecalis, VRE, Corynebacterium species and [...] nontender Left BKA stump site covered in tin pourer garment and ampu sheild LABORATORY AND DIAGNOSTIC [...] was performed in office at [facility] and images reviewed by orthopedic provider. Any [...] Tube Oral Q15 Min PRN Kayla Orona, OUTLET MANAGER Or dextrose 50 % solution 12.5 g 12.5 g Intravenous Q15 Min PRN Kayla Orona, OUTLET MANAGER Or dextrose 50 % solution 25 g 25 g Intravenous Q15 Min PRN Kayla Orona, OUTLET MANAGER Or glucagon (GLUCAGEN) injection 1 mg 1 [...] injection 5,000 Units 5,000 Units Subcutaneous Q8H [facility] Haven Bach APRN 5,000 Units at 11/11/24 [...] injection 1-6 Units 1-6 Units Subcutaneous Q4H [facility] POOJA Crews [Provider Held] insulin lispro [...] not compromised This report was generated using [employer] dictation software. Although every attempt has been made by the provider to proofread this document, occasional misspellings and typographical errors Sign Chris Taylor MD, [facility], [facility] Infectious Diseases Available via [employer] 11/11/2024 10:52 AM * Olimpia Lainez, FanyD [...] 4 mg q3h PRN for severe pain ([id number]). 1x dose of liquid dilaudid 1mg given [...] Compared to previous outside study report from [facility] on 08/05/2024, Mitral and tricuspid [...] of Pulmonary, Critical Care, and Sleep Medicine [address] [place] [address], [address] [address] Critical Care Progress Note Assessment & Plan [...] Compared to previous outside study report from [facility] on 08/05/2024, Mitral and tricuspid [...] Case IDs Date Procedure Surgeon Location Status [id number] 11/05/24 LEFT BELOW KNEE AMPUTATION [place] [facility] [...] ruled out. This report was generated using [employer] dictation software. Although every attempt has been [...] out/in endocarditis Plan -NWB, ampushield and stump tin pourer -Currently on ASA BID and subcutaneous heparin- [...] redressed with xeroform, abds and applied the tin pourer garment and ampu shield. Labs: Recent Labs [...] were not included. Coverage for Dr. Mtz [facility] ID Progress Note Name: Blas Genao [...] faecium -10/27: Left foot wound culture at [place]: MRSA, Enterococcus faecalis, VRE, Corynebacterium species and [...] was performed in office at [facility] and images reviewed by orthopedic provider. Any [...] Tube Oral Q15 Min PRN Kayla Orona, OUTLET MANAGER Or glucose (GLUTOSE 15) 40 % oral gel 75 g 2 Tube Oral Q15 Min PRN Kayla Orona, OUTLET MANAGER Or dextrose 50 % solution 12.5 g 12.5 g Intravenous Q15 Min PRN Kayla Orona, OUTLET MANAGER Or dextrose 50 % solution 25 g 25 g Intravenous Q15 Min PRN Kayla Orona, OUTLET MANAGER Or glucagon (GLUCAGEN) injection 1 mg 1 [...] injection 5,000 Units 5,000 Units Subcutaneous Q8H [facility] Haven Bach APRN 5,000 Units at [...] not compromised This report was generated using [employer] dictation software. Although every attempt has been made by the provider to proofread this document, occasional misspellings and typographical errors Sign Chris Taylor MD, FIDSA, [facility] Infectious Diseases Available via [employer] 11/10/2024 11:34 AM * POOJA Jimenez - 11/10/2024 10:45 AM EST Images from the original note were not included. [facility] Progress Note Date of admission:11/02/2024 Today's date: 11/10/2024 Primary Director Of Casework: [facility] Assessment & Plan 63 year old male with hypertension, hyperlipidemia, diabetes, CKD stage III, peripheral artery disease, diabetes, foot infection with osteomyelitis, complete heart block s/p dual chamber pacemaker [id number], atrial fibrillation s/p multiple ablations and cardioversions [...] abdomen much less distended Objective: Telemetry Reviewed: DRAFTER PLUMBING 60 Last Vitals Pulse:60,Resp:17,BP:130/60,SpO2:94 %,Weight:120 kg (264 [...] Compared to previous outside study report from [facility] on 08/05/2024, Mitral and tricuspid [...] Compared to previous outside study report from [facility] on 08/05/2024, Mitral and tricuspid [...] of Pulmonary, Critical Care, and Sleep Medicine [address] [place] [address], [address], [place] [address] Critical Care Progress Note Assessment & Plan [...] Compared to previous outside study report from [facility] on 08/05/2024, Mitral and tricuspid [...] Case IDs Date Procedure Surgeon Location Status [id number] 11/05/24 LEFT BELOW KNEE AMPUTATION Dallas Camejo [...] empagliflozin (JARDIANCE) 25 mg On hold since [facility] 11/04/2024 at 1503 until manually unheld; [...] ruled out. This report was generated using PictureMenu dictation software. Although every attempt has been [...] f/u with him regarding Advance Directives. * Chrsi Taylor MD - 11/09/2024 11:55 AM EST Images from the original note were not included. Coverage for Dr. Mtz [facility] ID Progress Note Name: Blas Genao [...] faecium -10/27: Left foot wound culture at [facility]: MRSA, Enterococcus faecalis, VRE, Corynebacterium species and [...] Soft nontender Left BKA stump site in tin pourer LABORATORY AND DIAGNOSTIC DATA: Lab and imaging [...] was performed in office at [facility] and images reviewed by orthopedic provider. Any [...] mg 950 mg Oral BID with meals Rfaiq Chakraborty MD 950 mg at 11/09/24 0917 [...] Tube Oral Q15 Min PRN Kayla Orona, OUTLET MANAGER Or dextrose 50 % solution 12.5 g 12.5 g Intravenous Q15 Min PRN Kayla Orona, OUTLET MANAGER Or dextrose 50 % solution 25 g 25 g Intravenous Q15 Min PRN Kayla Orona, OUTLET MANAGER Or glucagon (GLUCAGEN) injection 1 mg 1 [...] injection 5,000 Units 5,000 Units Subcutaneous Q8H [facility] Haven Bach APRN HYDROmorphone (DILAUDID) tablet [...] not compromised This report was generated using Chikka Speaking dictation software. Although every attempt has been made by the provider to proofread this document, occasional misspellings and typographical errors Sign Chris Taylor MD, [facility], [facility] Infectious Diseases Available via Conductiv 11/09/2024 11:55 AM * Deep Bales PharmD [...] with patient again tomorrow. * Gema Jane, OUTLET MANAGER - 11/09/2024 9:00 AM EST Images from the original note were not included. [facility] CARDI[facility]Y PROGRESS NOTE Outpatient Director Of Casework: Director Of Casework at [facility] in [place] Assessment & Plan Assessment Blas Genao is [...] empagliflozin (JARDIANCE) 25 mg On hold since [facility] 11/04/2024 at 1503 until manually unheld; [...] by 8 bpm Confirmed by MD Claude, [facility] ([id number]) on 11/07/2024 6:25:53 PM ECHO: [...] Compared to previous outside study report from [facility] on 08/05/2024, Mitral and tricuspid regurgitation were not previously reported. Recommend transesophageal echocardiogram if clinically indicated. All additional appropriate imaging studies within the past 24 hours reviewed - images reviewed and independently interpreted. Sign Gema Jane APRN [facility] [place] 11/09/2024 9:00 AM * Roberto Carranza PTA - 11/09/2024 8:40 AM EST Physical Therapy Progress Note Precautions/Restrictions: fall, isolation: contact, pacemaker, other (see comments) (NWB LLE; Skin) Assessment Summary: Patient seen for PT follow up. Performed bed mobility, transfers and sidesteps this session. Required Ax2 for mobility. Adjusted nutmegger for optimal fit and protection of residual limb. Per orders patient is to have tin pourer on AAT, noted that residual limb was wrapped with srinivas wrap vs tin pourer. Reached out to orthopedic PA in regards to tin pourer for patient. Patient is motivated to participate [...] level of independence with functional mobility. Current [facility] Basic Mobility Score: 14 Rehab Plan [...] Progressive Mobility Progressive Mobility Level Achieved Standing [facility] Basic Mobility Turning from your back [...] Climbing 3-5 steps with a railing? 1 [facility] Basic Mobility Score 14 Therapy Assessment/Plan [...] 1, PT) goal ongoing Sign: Roberto Carranza E BUSINESS SPECIALIST Associated attestation - Abhinav Pope, PT - [...] (AM-PAC) Daily Activity Inpatient Short Form (6-clicks) zkaiya standardized measure used to quantify deficits in self-care. The total score of the measure ranges from 6-24. A higher score indicates a higher level of independence with self-care tasks. Current [facility] Daily Activity Score: 15 Precautions/Restrictions: fall, [...] Progressive Mobility Level Achieved Edge of Bed [facility] Daily Activity Putting on and taking off Lower Body Clothing? 2 Bathing (including washing/rinsing/drying)? 2 Toileting (includes using toilet, bedpan, or urinal)? 1 Putting on and taking off upper body clothing? 3 Taking care of personal grooming such as brushing teeth? 3 Eating meals? 4 [facility] Daily Activity Score 15 Therapy Assessment/Plan [...] OT goal 1 Transfer Goal 1 (OT) Hitchcock Level/Cues Needed (Transfer Goal 1, OT) minimum [...] Critical Care, and Sleep Medicine [address], [address], [place] [address] Critical Care Progress Note Assessment & Plan [...] Compared to previous outside study report from [facility] on 08/05/2024, Mitral and tricuspid [...] or at the nursing station [facility] floor where the patient is located. My [...] Case IDs Date Procedure Surgeon Location Status [id number] 11/05/24 LEFT BELOW KNEE AMPUTATION Dallas Camejo [...] ruled out. This report was generated using PictureMenu dictation software. Although every attempt has been [...] were not included. Coverage for Dr. Mtz [facility] ID Progress Note Name: Blas Genao [...] faecium -10/27: Left foot wound culture at [facility] [place]: MRSA, Enterococcus faecalis, VRE, Corynebacterium species and [...] nontender Extremities: Left BKA site-> No drain. Microwave Oven Assembler in place LABORATORY AND DIAGNOSTIC DATA: Lab [...] was performed in office at [facility] and images reviewed by orthopedic provider. Any [...] mL IVPB-WTD 600 mg Intravenous Q8H Rafiq Chakarborty MD 600 mg at 11/08/24922 cholecalciferol tablet [...] 1-11 Units Subcutaneous TID withmeals Kayla Orona, OUTLET MANAGER 3 Units at 11/08/24 0901 insulin lispro (HumaLOG/ADMELOG) 100 units/mL injection 1-4 Units 1-4 Units Subcutaneous Nightly Kayla Orona, OUTLET MANAGER 2 Units at 11/07/24 2046 ipratropium-albuterol (DUONEB) 0.5-2.5 mg/3 mL nebulizer solution 3 mL 3 mL Nebulization Q2H PRN Rafiq Chakraborty MD 3 mL at 11/07/24 1025 lactulose (ENULOSE) 10 gm/15 mL solution 20 g 20 g Oral Q4H PRN Rafiq Chakraborty MD magnesium hydroxide (MILK OF MAGNESIA) 400 mg/5 mL suspension 30 mL 30 mL Oral Q12H PRN Rafiq Cahkraborty MD melatonin tablet 3 mg 3 mg [...] not compromised This report was generated using Chikka Speaking dictation software. Although every attempt has been made by the provider to proofread this document, occasional misspellings and typographical errors Sign Chris Taylor MD, FIDSA, FACP [facility] Infectious Diseases Available via Conductiv 11/08/2024 10:02 AM * Dallas Camejo MD - 11/08/2024 9:46 AM EST Blas's clinical progress and CP decompensation noted. Appreciate Medical management and CT recommendations. Drain out, wound clean, and Microwave Oven Assembler in place. Will continue to follow. * Gema Dumont SHUBHAM Jane - 11/08/2024 9:38 AM EST Images from the original note were not included. [facility] PROGRESS NOTE Outpatient Director Of Casework: Director Of Casework at [facility] in [place] Assessment & Plan Assessment Blas Genao is [...] by 8 bpm Confirmed by MD Claude, [facility] ([id number]) on 11/07/2024 6:25:53 PM ECHO: [...] Compared to previous outside study report from [facility] on 08/05/2024, Mitral and tricuspid regurgitation were not previously reported. Recommend transesophageal echocardiogram if clinically indicated. All additional appropriate imaging studies within the past 24 hours reviewed - images reviewed and independently interpreted. Sign Gema Jane APRN [facility] [place] 11/08/2024 9:38 AM * Shay Martin MD - 11/08/2024 7:40 AM EST Images from the original note were not included. Division of Pulmonary, Critical Care, and Sleep Medicine [address], [address], [place] [address] Critical Care Progress Note Assessment & Plan [...] Compared to previous outside study report from [facility] on 08/05/2024, Mitral and tricuspid [...] or at the nursing station [facility] floor where the patient is located. My [...] Case IDs Date Procedure Surgeon Location Status [id number] 11/05/24 LEFT BELOW KNEE AMPUTATION Dallas Camejo [...] ruled out. This report was generated using Chikka Speaking dictation software. Although every attempt has [...] left lower extremity, continue LLE nutmegger and tin pourer. - skin checks to LLE bid - [...] CPAP 15L, sats drop when removed LLE: nutmegger/tin pourer in place. Thigh soft Labs: Recent Labs [...] were not included. Coverage for Dr. Mtz [facility] ID Progress Note Name: Blas Genao [...] 11/05 -10/27: Left foot wound culture at [facility]: MRSA, Enterococcus faecalis, VRE, Corynebacterium species and [...] -Ceftaroline, 11/05 Plan: Patient was upgraded to [place] 11 stepdown secondary to increased oxygen requirement, [...] was performed in office at [facility] and images reviewed by orthopedic provider. Any [...] tablet 975 mg 975 mg Oral Q6H [facility] POOJA De Souza 975 mg at 11/07/24 0814 amiODARONE (PACERONE) tablet 200 mg 200 mg Oral BID POOJA De Souza 200 mg at 11/07/24 0817 amLODIPine (NORVASC) tablet 10 mg 10 mg Oral Daily POOJA De Souza 10 mg at 11/07/24 0817 aspirin enteric coated (ECOTRIN LOW STRENGTH) tablet 81 mg 81 mg Oral Q12H [facility] POOJA De Souza81 mg at 11/07/24 [...] not compromised This report was generated using Chikka Speaking dictation software. Although every attempt has been made by the provider to proofread this document, occasional misspellings and typographical errors Sign Chris Taylor MD, [facility], [facility] Infectious Diseases Available via Conductiv 11/07/2024 11:30 AM * Lei Diaz MD [...] Objective Past Medical History: Diagnosis Date A-fib ([facility]) Acute osteomyelitis ([facility]) Atrial flutter ([facility]) Cardiac pacemaker 2016 Carotid atherosclerosis Charcot's joint of right foot 2015 Chronic sciatica Complete AV block ([facility]) Diabetes mellitus ([facility]) TYPE II Diabetic foot ulcer ([facility]) ED (erectile dysfunction) Edema ESBL (extended spectrum beta-lactamase) producing bacteria infection GERD (gastroesophageal reflux disease) GI bleed Hyperlipidemia Hypertension Leukocytosis Metabolic bone disease Multiple drug resistant organism (MDRO) culture positive Non healing left heel wound Obesity Osteoarthrosis Osteomyelitis of both feet (HCC) PAD (peripheral artery disease) ([facility]) Primary osteoarthritis of knee Proteinuria Renal osteodystrophy Restless legs syndrome (RLS) no meds, lyrica helps Septic joint of left knee joint (HCC) Sleep apnea BiPap Smoker Stage 3a chronic kidney disease (CKD) ([facility]) Past Surgical History: Procedure Laterality Date AMPUTATION [...] WOUND VAC; Surgeon: Dallas Camejo MD; Location: [facility] OR; Service: Orthopaedics; Laterality: Left; FOOT SURGERY Right x5 INCISION AND DRAINAGE FOOT Left OH PROCEDURE MAZE AFIB OSTECTOMY CALCANEOUS Left 09/10/2024 Procedure: ANKLE PARTIAL CALCANECTOMY; Surgeon: Dallas Camejo MD; Location: [facility] OR; Service: Orthopaedics; Laterality: Left; wOUND [...] Continuous Glucose Sensor (FreeStyle Wallace 3 Sensor) [facility] INJECT 1 DEVICE INTO THE SKIN EVERY [...] to prior. Interpreted by: Roberto Tolbert MD Bench Boring Machine Operator Sign: Lei Diaz MD 11/07/2024 11:05 [...] from the original note were not included. [facility] MEDICINE PROGRESS NOTE Assessment Mr. Blas Genao [...] evaled started BiPap rescuse and transferred to [facility]. Plan Principal Problem: Acute osteomyelitis of left [...] Diet Diabetic/ Calorie Controlled; Carb Counting 60g/meal [id number] kcal DVT Px: SCDs - RIGHT (Knee [...] Case IDs Date Procedure Surgeon Location Status [id number] 11/05/24 LEFT BELOW KNEE AMPUTATION Dallas Camejo MD [facility] OR Comp Plan WB Status: NWB left lower extremity. Manager Regional Sales stump tin pourer in place. Appreciate PT and OT recommendations. [...] oriented. LE: Dressing clean, dry, and intact. Manager Regional Sales stump tin pourer in place. Labs: Recent Labs 11/05/24 0712 [...] level of independence with functional mobility. Baseline [facility] Basic Mobility Score: 24 Current [facility] Basic Mobility Score: 16 Objective Data [...] History Past Medical History: Diagnosis Date A-fib ([facility]) Acute osteomyelitis (HCC) Atrial flutter ([facility]) Cardiac pacemaker 2016 Carotid atherosclerosis Charcot's joint of right foot 2015 Chronic sciatica Complete AV block ([facility]) Diabetes mellitus ([facility]) TYPE II Diabetic foot ulcer ([facility]) ED (erectile dysfunction) Edema ESBL (extended spectrum beta-lactamase) producing bacteria infection GERD (gastroesophageal reflux disease) GI bleed Hyperlipidemia Hypertension Leukocytosis Metabolic bone disease Multiple drug resistant organism (MDRO) culture positive Non healing left heel wound Obesity Osteoarthrosis Osteomyelitis of both feet ([facility]) PAD (peripheral artery disease) ([facility]) Primary osteoarthritis of knee Proteinuria Renal osteodystrophy Restless legs syndrome (RLS) no meds, lyrica helps Septic joint of left knee joint ([facility]) Sleep apnea BiPap Smoker Stage 3a chronic kidney disease (CKD) ([facility]) Past Surgical History: Procedure Laterality Date AMPUTATION [...] WOUND VAC; Surgeon: Dallas Camejo MD; Location: [facility] OR; Service: Orthopaedics; Laterality: Left; FOOT SURGERY Right x5 INCISION AND DRAINAGE FOOT Left [place] PROCEDURE MAZE AFIB OSTECTOMY CALCANEOUS Left 09/10/2024 Procedure: ANKLE PARTIAL CALCANECTOMY; Surgeon: Dallas Camejo MD; Location: [facility] OR; Service: Orthopaedics; Laterality: Left; wOUND [...] Progressive Mobility Level Achieved Transferring to Chair [facility] Basic Mobility Turning from your back [...] Climbing 3-5 steps with a railing? 1 [facility] Basic Mobility Score 16 Therapy Assessment/Plan [...] PT goal 1 Transfer Goal 1 (PT) Hitchcock Level/Cues Needed (Transfer Goal 1, PT) supervision required Time Frame (Transfer Goal 1, PT) 1 week Activity/Assistive Device (Transfer Goal 1, PT) pbs-hn-nzhlg/uyjul-uw-nlo;ovp-qx-rjhur/csxvx-uw-pxb;wheelchair transfer;walker, rolling Gait Training Goal 1 (PT) Time Frame (Gait Training Goal 1, PT) 1 week Hitchcock Level (Gait Training Goal 1, PT) supervision required Activity/Assistive Device (Gait Training Goal 1, PT) gait (walking locomotion);assistive device use;maintain weight-bearing status;increase energy conservation;increase endurance/gait distance;walker, rolling Distance (Gait Training Goal 1, PT) 20 Wheelchair Locomotion Goal 1 (PT) Hitchcock Level/Cues Needed (Wheelchair Locomotion Goal 1, PT) supervision required Time Frame (Wheelchair Locomotion Goal 1, PT) 1 week Activity (Wheelchair Locomotion Goal 1, PT) wheelchair mobility skills, all Distance Goal 1 (Wheelchair Locomotion, PT) 200 Sign: Jessica Daily PT * Chris Taylor MD - 11/06/2024 10:58 AM EST Images from the original note were not included. Coverage for Dr. Mtz [facility] ID Progress Note Name: Blas Genao [...] amputation -10/27: Left foot wound culture at [facility]: MRSA, Enterococcus faecalis, VRE, Corynebacterium species and [...] was performed in office at [facility] and images reviewed by orthopedic provider. Any [...] tablet 975 mg 975 mg Oral Q6H [facility] POOJA De Souza 975 mg at 11/05/24 0650 acetaminophen (TYLENOL) tablet 975 mg 975 mg Oral Q8H [facility] POOJA De Souza 975 mg at 11/06/24 0513 amiODARONE (PACERONE) tablet 200 mg 200 mg Oral BID POOJA De Souza 200 mg at 11/06/24 0909 amLODIPine (NORVASC) tablet 10 mg 10 mg Oral Daily POOJA De Souza 10 mg at 11/06/24 0908 aspirin enteric coated (ECOTRIN LOW STRENGTH) tablet 81 mg 81 mg Oral Q12H [facility] POOJA De Souza81 mg at 11/05/24 210 [...] not compromised This report was generated using PanGenX Naturally Speaking dictation software. Although every attempt has been made by the provider to proofread this document, occasional misspellings and typographical errors Sign Chris Taylor MD, SUBHA, [facility] Infectious Diseases Available via Conductiv 11/06/2024 10:58 AM * Adama Prasad APRN [...] bumex PO 2mg daily). Continue telemetry Outpatient senior datastage developer: Lauren Carlos yovany [place] Subjective/24 hour Events C/o significant pain. No [...] Continuous Glucose Sensor (FreeStyle Wallace 3 Sensor) [facility] INJECT 1 DEVICE INTO THE SKIN EVERY [...] (BUMEX) tablet 2 mg On hold since [facility] 11/04/2024 at 1503 until manually unheld; [...] Compared to previous outside study report from [facility] on 08/05/2024, Mitral and tricuspid [...] software and direct typing. Please excuse inadvertent team psychologist and typing errors. Sign Adama Prasad APRN [...] Case IDs Date Procedure Surgeon Location Status [id number] 11/05/24 LEFT BELOW KNEE AMPUTATION Dallas Camejo MD [facility] OR Comp Plan Multimodal pain management DVT Prophylaxis: ASA 81mg PO BID Weight Bearing Status: NWB PT/OOB HV in place scant output overnight, will discuss with Dr. Camejo Appreciate Medicine, ID and Cardiology recs: for medical comanagement []TATIANNA pending []Blood Cultures Currently on Dapto, Ceftaroline Manager Regional Sales Stump tin pourer ordered Subjective No complaints. No CP,SOB,N/V. Pain [...] Diet Diabetic/ Calorie Controlled; Carb Counting 60g/meal 9891-0324 kcal DVT Px: SCDs - RIGHT (Knee High) Status: Full Code Consults placed: Procedures Inpatient consult to Internal Medicine Inpatient consult to Infectious Diseases (Specify provider ) Inpatient consult to Social Work Inpatient consult to Anesthesiology Inpatient consult to cardiology ([facility]) Inpatient consult to cardiac surgery Inpatient [...] Case IDs Date Procedure Surgeon Location Status [id number] 11/05/24 LEFT BELOW KNEE AMPUTATION Dallas Camejo [...] from the original note were not included. [facility] CARDIOLOGY SERVICE CONSULT Date of Consult: 11/05/2024 Patient's Primary Care Physician: Lee Fabian MD Physician Requesting Consult: Orthopedic surgery Primary Director Of Casework: Director Of Casework at [facility] Reason for Consultation: Preop Admit Date: 11/02/2024 [...] doing TATIANNA first is not going to address change clerk. Leg wounds are like the source that [...] Objective Past Medical History: Diagnosis Date A-fib ([facility]) Acute osteomyelitis ([facility]) Atrial flutter ([facility]) Cardiac pacemaker 2016 Carotid atherosclerosis Charcot's joint of right foot 2015 Chronic sciatica Complete AV block ([facility]) Diabetes mellitus ([facility]) TYPE II Diabetic foot ulcer ([facility]) ED (erectile dysfunction) Edema ESBL (extended spectrum beta-lactamase) producing bacteria infection GERD (gastroesophageal reflux disease) GI bleed Hyperlipidemia Hypertension Leukocytosis Metabolic bone disease Multiple drug resistant organism (MDRO) culture positive Non healing left heel wound Obesity Osteoarthrosis Osteomyelitis of both feet ([facility]) PAD (peripheral artery disease) ([facility]) Primary osteoarthritis of knee Proteinuria Renal osteodystrophy Restless legs syndrome (RLS) no meds, lyrica helps Septic joint of left knee joint ([facility]) Sleep apnea BiPap Smoker Stage 3a chronic kidney disease (CKD) ([facility]) Reviewed Past Surgical History: Procedure Laterality Date [...] WOUND VAC; Surgeon: Dallas Camejo MD; Location: [facility] OR; Service: Orthopaedics; Laterality: Left; FOOT SURGERY Right x5 INCISION AND DRAINAGE FOOT Left [place] PROCEDURE MAZE AFIB OSTECTOMY CALCANEOUS Left 09/10/2024 Procedure: ANKLE PARTIAL CALCANECTOMY; Surgeon: Dallas Camejo MD; Location: [facility]; Service: Orthopaedics; Laterality: Left; wOUND PARTIALLY CLOSED [...] Continuous Glucose Sensor (FreeStyle Wallace 3 Sensor) [facility] INJECT 1 DEVICE INTO THE SKIN EVERY [...] Compared to previous outside study report from [facility] on 08/05/2024, Mitral and tricuspid regurgitation were not previously reported. Recommend transesophageal echocardiogram if clinically indicated. All additional appropriate imaging studies within the past 24 hours reviewed - images reviewed and independently interpreted. Sign: Nitish Stephen MD [facility] [place] 11/05/2024 2:43 PM * Hilda Alvarado RN - 11/05/2024 1:36 PM EST Images from the original note were not included. * Hilda Alvarado RN - 11/05/2024 1:00 PM EST Attending Anesthesiologist (JO-ANN) monitoring and aware of vitals during duration of block procedure. * Ena Mtz MD - 11/05/2024 9:42 AM EST Images from the original note were not included. [facility] INFECTIOUS DISEASE Consult progress Note Name: [...] faecium 10/27: Left foot wound culture at [facility]: MRSA, Enterococcus faecalis, VRE, Corynebacterium speciesand gram-negative [...] 11/03/24 0851 Robert Mtz MD, FACP, CWSP [facility] Infect[facility] Diseases Available via [employer] SUBJECTIVE Tmax 102.3 ??F Fevers overnight [...] not compromised. This report was generated using Chikka Speaking dictation software. Although every attempt has [...] from the original note were not included. [facility] MEDICINE PROGRESS NOTE Assessment Mr. Blas Genao [...] consult to Anesthesiology Inpatient consult to cardiology ([facility]) Barriers for discharge: IV antibiotics, fevers, [...] Juaquin Kern MD 11/05/2024 7:09 AM * Junay Ospina RN - 11/04/2024 9:20 AM ESTSummary: [...] request it: Integrative Medicine Services available at [facility], including, Massage Therapy, and Reiki/Energy Therapy Social Work Spiritual Care Pharmacist Nutrition Patient declined resources at this time. Demographic Screening: Medical insurance - Medicare Skein Tier involvement - No. Worker's compensation - No [...] staff will identify along with patient a representative personal service to provide updates. Interventions Provided and reviewed [...] ostectomy. -10/27: Left foot wound culture at [facility]: MRSA, Enterococcus faecalis, VRE, Corynebacterium species and [...] was performed in office at [facility] and images reviewed by orthopedic provider. Any [...] Nightly POOJA Arias 2 tablet at 11/03/24 5761 ALLERGIES: Allergies Allergen Reactions Lisinopril Other (See [...] not compromised This report was generated using PanGenX Naturally Speaking dictation software. Although every attempt has been made by the provider to proofread this document, occasional misspellings and typographical errors Sign Chris Taylor MD, FIDSA, FACP [facility] Infectious Diseases Available via [employer] 11/04/2024 9:13 AM * Juaquin Kern MD [...] Diet Diabetic/ Calorie Controlled; Carb Counting 60g/meal 3635-2045 kcal Diet NPO; Meds DVT Px: SCDs - Bilateral (Knee High) Status: Full Code Consults placed: Procedures Inpatient consult to Internal Medicine Inpatient consult to Infectious Diseases (Specify provider ) Inpatient consult to Social Work Inpatient consult to Anesthesiology Inpatient consult to cardiology ([facility]) Barriers for discharge: IV antibiotics, fevers, [...] case request and [facility] OR front desk monitor notified [x]Abx application internship to OR (2g ancef) []Pre-Op Noes to [...] Home alone Current Living Arrangements home (1-level, [facility]) Primary Care Provided by self Provides [...] In the past 12 months has the Kites, gas, oil, or water [employer] threatened to shut off services in your [...] (Driss MINAYA 3 weekly (wound care) & PROJECT MANAGEMENT PROFESSIONAL x 2 weekly) Concerns to be Addressed home safety;discharge planning Patient/Family Anticipates Transition to home with help/services;inpatient rehabilitation facility Patient/Family Anticipated Services at Transition home health care;assisted;other (see comments) (inpatient rehab) Transportation Anticipated family or friend will provide;health plan transportation Current Discharge Risk physical impairment;lives alone;dependent with mobility/activities of daily living;chronically ill Discharge Coordination/Tasks Status Post Discharge Needs/Treatments PT;OT;Wound Care;[facility] Home Visit Patient/Patient Brake Linings Coater Provided With [facility] Preferences(s) Homecare Company Preference(s) [facility] * Juaquin Kern MD - 11/03/2024 1:17 PM EST Images from the original note were not included. [facility] MEDICINE PROGRESS NOTE Assessment Mr. Blas Genao [...] Diet Diabetic/ Calorie Controlled; Carb Counting 60g/meal 7179-1280 kcal DVT Px: SCDs Status: Full Code [...] []CMG conslt []ID consult []PICC line (ordered) [][facility] [employer] clinic: pre-amputation education/fitting []Blood cultures: pending []Dressing [...] Patient arrived around 1800 this evening to [place] [id number] in no acute distress. Placed on contact [...] PAD, RLS and CKD with presents to [facility] inpatient floor for known left calc osteomyelitis [...] (she has seen patient in the past) -[employer] to be called for pre-amputation education/fitting in [...] PAD, RLS and CKD3 that presents to [facility] inpatient floor as a direct admit under [...] Objective Past Medical History: Diagnosis Date A-fib ([facility]) Acute osteomyelitis (HCC) Atrial flutter ([facility]) Cardiac pacemaker 2016 Carotid atherosclerosis Charcot's joint of right foot 2015 Chronic sciatica Complete AV block (HCC) Diabetes mellitus (HCC) TYPE II Diabetic foot ulcer ([facility]) ED (erectile dysfunction) Edema ESBL (extended spectrum beta-lactamase) producing bacteria infection GERD (gastroesophageal reflux disease) GI bleed Hyperlipidemia Hypertension Leukocytosis Metabolic bone disease Multiple drug resistant organism (MDRO) culture positive Non healing left heel wound Obesity Osteoarthrosis Osteomyelitis of both feet ([facility]) PAD (peripheral artery disease) ([facility]) Primary osteoarthritis of knee Proteinuria Renal osteodystrophy Restless legs syndrome (RLS) no meds, lyrica helps Septic joint of left knee joint ([facility]) Sleep apnea BiPap Smoker Stage 3a chronic kidney disease (CKD) ([facility]) Past Surgical History: Procedure Laterality Date AMPUTATION [...] WOUND VAC; Surgeon: Dallas Camejo MD; Location: [facility] OR; Service: Orthopaedics; Laterality: Left; FOOT SURGERY Right x5 INCISION AND DRAINAGE FOOT Left OH PROCEDURE MAZE AFIB OSTECTOMY CALCANEOUS Left 09/10/2024 Procedure: ANKLE PARTIAL CALCANECTOMY; Surgeon: Dallas Camejo MD; Location: [facility] OR; Service: Orthopaedics; Laterality: Left; wOUND [...] Continuous Glucose Sensor (FreeStyle Wallace 3 Sensor) [facility] INJECT 1 DEVICE INTO THE SKIN EVERY [...] PAD, RLS and CKD with presents to [facility] inpatient floor for known left calc osteomyelitis [...] (she has seen patient in the past) -[employer] to be called for pre-amputation education/fitting in [...] PAD, RLS and CKD3 that presents to [facility] inpatient floor as a direct admit under [...] sciatica Complete AV block (HCC) Diabetes mellitus ([facility]) TYPE II Diabetic foot ulcer ([facility]) ED (erectile dysfunction) Edema ESBL (extended spectrum beta-lactamase) producing bacteria infection GERD (gastroesophageal reflux disease) GI bleed Hyperlipidemia Hypertension Leukocytosis Metabolic bone disease Multiple drug resistant organism (MDRO) culture positive Non healing left heel wound Obesity Osteoarthrosis Osteomyelitis of both feet ([facility]) PAD (peripheral artery disease) ([facility]) Primary osteoarthritis of knee Proteinuria Renal osteodystrophy Restless legs syndrome (RLS) no meds, lyrica helps Septic joint of left knee joint ([facility]) Sleep apnea BiPap Smoker Stage 3a chronic kidney disease (CKD) ([facility]) Past Surgical History: Procedure Laterality Date AMPUTATION [...] WOUND VAC; Surgeon: Dallas Camejo MD; Location: [facility] OR; Service: Orthopaedics; Laterality: Left; FOOT SURGERY Right x5 INCISION AND DRAINAGE FOOT Left OH PROCEDURE MAZE AFIB OSTECTOMY CALCANEOUS Left 09/10/2024 Procedure: ANKLE PARTIAL CALCANECTOMY; Surgeon: Dallas Camejo MD; Location: [facility] OR; Service:Orthopaedics; Laterality: Left; wOUND PARTIALLY CLOSED [...] to verify the correct patient, procedure, equipment, field support technician and site/side marked as required. Indications: vascular [...] Representatives. HCR- Blas and Jessica. Copy in [employer]. SASKIA to f/u with pt this afternoon. Addendum: 1:30pm SASKIA met with pt today for support. Blas was sitting in his chair, open to visit. Very social and pleasant. Very future oriented with the hopes of a return to work, if he chooses based on his recovery. 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 He is anticipating rehab in a [...] meets clinical indications for proline placement for oil heaterman antibiotics in the setting of osteomyelitis and [...] guidelines to the screening nurse at ext: [phone] Please direct any questions regarding procedure time/ date to the specific imaging modality: US: ext: [id number] CT: ext: [id number] Fluoroscopy: ext: [id number] IR: ext: [phone] Consent: The patient is able to give [...] empagliflozin (JARDIANCE) 25 mg On hold since [facility] 11/04/2024 at 1503 until manually unheld; [...] injection 5,000 Units On hold since Fri11/16/2024 [id number] until manually unheld; held by Herberth Whitmore [...] at 1.8mg/dL - regarding the question of senior care PICC for Abx. This patient is high [...] History Past Medical History: Diagnosis Date A-fib ([facility]) Acute osteomyelitis (HCC) Atrial flutter ([facility]) Cardiac pacemaker 2016 Carotid atherosclerosis Charcot's joint of right foot 2015 Chronic sciatica Complete AV block ([facility]) Diabetes mellitus ([facility]) TYPE II Diabetic foot ulcer ([facility]) ED (erectile dysfunction) Edema ESBL (extended spectrum beta-lactamase) producing bacteria infection GERD (gastroesophageal reflux disease) GI bleed Hyperlipidemia Hypertension Leukocytosis Metabolic bone disease Multiple drug resistant organism (MDRO) culture positive Non healing left heel wound Obesity Osteoarthrosis Osteomyelitis of both feet ([facility]) PAD (peripheral artery disease) Primary osteoarthritis of knee Proteinuria Renal osteodystrophy Restless legs syndrome (RLS) no meds, lyrica helps Septic joint of left knee joint ([facility]) Sleep apnea BiPap Smoker Stage 3a chronic kidney disease (CKD) ([facility]) Past Surgical History: Procedure Laterality Date AMPUTATION Right 2017 TMA AMPUTATION BELOW KNEE Left 11/05/2024 Procedure: LEFT BELOW KNEE AMPUTATION; Surgeon: Dallas Camejo MD; Location: [facility]; Service: Orthopaedics; Laterality: Left; AORTOGRAM- ABDOMINAL Left [...] VAC; Surgeon: Dallas Camejo MD; Location: [facility]; Service: Orthopaedics; Laterality: Left; EXTRACTION LEAD(S) LASER FROM DUAL PM SYSTEM Left 11/17/2024 Procedure: Extraction lead(s) laser from dual PM system; [id number]; Surgeon: Rui Pabon MD; Location: [facility] OR; Service: Electrophysiology; Laterality: Left; FOOT SURGERY Right x5 INCISION AND DRAINAGE FOOT Left INSERT/REPLACE LEADLESS PACEMAKER N/A 11/17/2024 Procedure: Micra Leadless Pacemaker Insert/Replacement; 76725; Surgeon: Rui Pabon MD; Location: Main OR; [...] Continuous Glucose Sensor (FreeStyle Wallace 3 Sensor) [facility] INJECT 1 DEVICE INTO THE SKIN EVERY [...] injection 5,000 Units On hold since Fri11/16/2024 [id number] until manually unheld; held by Herberth Whitmore [...] found for: TACROLIMUS No results found for: [id number] , TOTVOL , CRCLR , PERIOD No [...] Sign: Anmol Reynoso MD 11/19/2024 10:09 AM [facility] Nephrology Office [phone] * Gilda May RN - 11/12/2024 3:31 PM EST [facility] Wound Care Consult Visit Date: 11/12/2024 Patient Name: Blas Genao Date of : 1960 Reason for Consult: initial Wound Team Summary Assessment: Known DFU to R plantar foot, typically followed by wound center/sound assistant outpatient near patient's home. Had been using [...] nighttime disruptions as medically appropriate. Maintain regular [id number]-pmvmv including appropriate lighting in the room. Consider [...] limb. Per orders patient is to have tin pourer on AAT, noted that residual limb was wrapped with srinivas wrap vs tin pourer. Reached out to orthopedic PA in regards to tin pourer for patient. Patient is motivated to participate [...] W/C, EMS transport and home PT. Current [facility] Basic Mobility Score: 14 OT 11/09 [...] with strength, balance and activity tolerance. Current [facility] Daily Activity Score: 15 Outcomes score [facility] The Activity Measure for Post-Acute Care [...] mellitus (HCC) TYPE II Diabetic foot ulcer ([facility]) ED (erectile dysfunction) Edema ESBL (extended spectrum [...] helps Septic joint of left knee joint ([facility]) Sleep apnea BiPap Smoker Stage 3a chronic kidney disease (CKD) ([facility]) Past Surgical History: Procedure Laterality Date AMPUTATION Right 2017 TMA AMPUTATION BELOW KNEE Left 11/05/2024 Procedure: LEFT BELOW KNEE AMPUTATION; Surgeon: Dallas Camejo MD; Location: [facility] OR; Service: Orthopaedics; Laterality: Left; AORTOGRAM- [...] Continuous Glucose Sensor (FreeStyle Wallace 3 Sensor) [facility] INJECT 1 DEVICE INTO THE SKIN EVERY [...] empagliflozin (JARDIANCE) 25 mg On hold since [facility] 11/04/2024 at 1503 until manually unheld; [...] amputation. 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 He typically has an egg sandwich [...] - 2600 Kcals/day (20 - 25 Kcals/kg) [place]: RMR (Brownwood-St. Jeor Equation): 1920.63 [place]-St. Jeor (Considerations): 0545-0969 kcal (MSJ +1.2-1.3) based on 104 kg (229 lb 4.5 oz) (reported dry weight) Protein Needs: 117 - 141 gm, (1.5 - 1.8g/kg) based on 78.1 kg (172 lb 2.9 oz) (Adjusted IBW) Fluids: 2500ml based on Estimated/Assessed Carbohydrates Needs: 75 g CHO/meal Current Diet: Diet Diabetic/ Calorie Controlled; Carb Counting 60g/meal 5235-8936 kcal; 2 gm NA (Low Sodium); 2 [...] Compared to previous outside study report from [facility] on 08/05/2024, Mitral and tricuspid [...] Smoker Stage 3a chronic kidney disease (CKD) ([facility]) Past Surgical History: Procedure Laterality Date AMPUTATION Right 2017 TMA AMPUTATION BELOW KNEE Left 11/05/2024 Procedure: LEFT BELOW KNEE AMPUTATION; Surgeon: Dallas Camejo MD; Location: [facility] OR; Service: Orthopaedics; Laterality: Left; AORTOGRAM- [...] WOUND VAC; Surgeon: Dallas Camejo MD; Location: [facility] OR; Service: Orthopaedics; Laterality: Left; FOOT SURGERY Right x5 INCISION AND DRAINAGE FOOT Left OH PROCEDURE MAZE AFIB OSTECTOMY CALCANEOUS Left 09/10/2024 Procedure: ANKLE PARTIAL CALCANECTOMY; Surgeon: Dallas Camejo MD; Location: [facility] OR; Service: Orthopaedics; Laterality: Left; wOUND [...] Continuous Glucose Sensor (FreeStyle Wallace 3 Sensor) [facility] INJECT 1 DEVICE INTO THE SKIN EVERY [...] assessment, and plan as detailed in the accountant supervisor's note with the following exceptions, clarifications, or [...] from the original note were not included. [facility] CARDIOLOGY SERVICE CONSULT Date of Consult: 11/04/2024 Patient's Primary Care Physician: Lee Fabian MD Physician Requesting Consult: Orthopedic surgery Primary Director Of Casework: Director Of Casework at [facility] Reason for Consultation: Preop Admit Date: 11/02/2024 [...] wound Obesity Osteoarthrosis Osteomyelitis of both feet ([facility]) PAD (peripheral artery disease) ([facility]) Primary osteoarthritis of knee Proteinuria Renal osteodystrophy Restless legs syndrome (RLS) no meds, lyrica helps Septic joint of left knee joint ([facility]) Sleep apnea BiPap Smoker Stage 3a chronic kidney disease (CKD) ([facility]) Reviewed Past Surgical History: Procedure Laterality Date [...] WOUND VAC; Surgeon: Dallas Camejo MD; Location: [facility] OR; Service: Orthopaedics; Laterality: Left; FOOT SURGERY Right x5 INCISION AND DRAINAGE FOOT Left OH PROCEDURE MAZE AFIB OSTECTOMY CALCANEOUS Left 09/10/2024 Procedure: ANKLE PARTIAL CALCANECTOMY; Surgeon: Dallas Camejo MD; Location: [facility] OR; Service: Orthopaedics; Laterality: Left; wOUND [...] (two) times a day. Continuous Glucose Sensor (TruantTodayyle Wallace 3 Sensor) [facility] INJECT 1 DEVICE INTO THE SKIN EVERY [...] 9 bpm Confirmed by MD Danya, Deep ([id number]) on 11/03/2024 4:30:25 PM Echocardiogram (TTE) Comprehensive [...] Compared to previous outside study report from [facility] on 08/05/2024, Mitral and tricuspid regurgitation were not previously reported. Recommend transesophageal echocardiogram if clinically indicated. All additional appropriate imaging studies within the past 24 hours reviewed - images reviewed and independently interpreted. Sign: Nitish Stephen MD [facility] [place] 11/04/2024 3:31 PM * Hilda Almodovar, [facility] - 11/04/2024 10:57 AM ESTAssociated Order(s): [...] has a past medical history of A-fib ([facility]), Acute osteomyelitis ([facility]), Atrial flutter ([facility]),Cardiac pacemaker (2015), Carotid atherosclerosis, Charcot's joint of right foot (2014), Chronic sciatica, Complete AV block ([facility]), Diabetes mellitus ([facility]), Diabetic foot ulcer ([facility]), ED (erectile dysfunction), Edema, ESBL (extended spectrum beta-lactamase) producing bacteria infection, GERD (gastroesophageal reflux disease), GI bleed, Hyperlipidemia, Hypertension, Leukocytosis, Metabolic bone disease, Multiple drug resistant organism (MDRO) culture positive, Non healing left heel wound, Obesity, Osteoarthrosis, Osteomyelitis of both feet ([facility]), PAD (peripheral artery disease) ([facility]), Primary osteoarthritis of knee, Proteinuria, Renal osteodystrophy, Restless legs syndrome (RLS), Septic joint of left knee joint ([facility]), Sleep apnea, Smoker, and Stage 3a chronic kidney disease (CKD) ([facility]). Patient has a past surgical history that [...] and supports. Pt has been working at [employer] in [facility] up until recently. He shared he is deemed disabledunder Social Security Disability though has been working under ticket to work program. Pt states does not anticipate being able to return to his line of work and states he will get oil heaterman disability. Discussed [place] Paid Leave. Pt states [...] area. Gave pt info and literature on [employer] [employer]. Pt is familiar with this service though has not used it. He was glad to have the information. Thereis no application process for this service. Anyone 60 or older that lives within [employer]'s service area can use it and make reservations at [phone]. Pt indicates being able to facilitate rides [...] Patient Psychosocial History Demographic Information Preferred Language: Cameroonian Preferred Name: Blas Relationship status: Single Children: Blas Genao Adult Son Legal next of kin [phone] Advance Directive Advance Directives:Advance Directives Does Patient Have Advance Directives?: yes Living Will: yes, copy requested Healthcare Brake Linings Coater: yes, copy requested Legally Authorized Brake Linings Coater Blas Genao Adult Son Legal next of kin [phone] Living Environment Household Members: pt and 3 pet cats Living Arrangements: House Does the patient have any environmental/safety concerns? No Support System Who currently provides assistance/support for the patient? Son , friends Also has homecare [facility] Quality of support systems? Supportive Patient [...] from the original note were not included. [facility] INFECTIOUS DISEASE CONSULTATION Date of Consult: [...] Negative 10/27: Left foot wound culture at [place]: MRSA, Enterococcus faecalis, VRE, Corynebacterium speciesand gram-negative [...] Protocol Orders 11/02/241942 Robert Mtz MD, FACP, [facility] Infectious Diseases Available via [employer] SUBJECTIVE HISTORY OF PRESENT ILLNESS: This is a 63 y.o. year-old male complex medical history of atrial fibrillation, cardiac pacemaker, Watchman device, diabetes type II, history of ESBL infection, peripheral vascular disease, chronic kidney disease, diabetic foot infection/osteomyelitis, status post right TMA, recent hospitalization at [facility] for left diabetic foot infection. He underwent debridement of the left foot on 08/22 and repeat debridement on 08/24. Intraoperative cultures then revealed Enterococcus, ESBL E. coli and was treated with amoxicillin, meropenem and Flagyl. Fernanda parapsilosis was thought to be a contaminant. He was admitted to [facility] and underwent left calcaneus ostectomy on [...] HISTORY: Past Medical History: Diagnosis Date A-fib ([facility]) Acute osteomyelitis (HCC) Atrial flutter ([facility]) Cardiac pacemaker 2016 Carotid atherosclerosis Charcot's joint of right foot 2015 Chronic sciatica Complete AV block ([facility]) Diabetes mellitus ([facility]) TYPE II Diabetic foot ulcer ([facility]) ED (erectile dysfunction) Edema ESBL (extended spectrum beta-lactamase) producing bacteria infection GERD (gastroesophageal reflux disease) GI bleed Hyperlipidemia Hypertension Leukocytosis Metabolic bone disease Multiple drug resistant organism (MDRO) culture positive Non healing left heel wound Obesity Osteoarthrosis Osteomyelitis of both feet ([facility]) PAD (peripheral artery disease) ([facility]) Primary osteoarthritis of knee Proteinuria Renal osteodystrophy Restless legs syndrome (RLS) no meds, lyrica helps Septic joint of left knee joint ([facility]) Sleep apnea BiPap Smoker Stage 3a chronic kidney disease (CKD) ([facility]) PAST SURGICAL HISTORY: Past Surgical History: Procedure [...] WOUND VAC; Surgeon: Dallas Camejo MD; Location: [facility] OR; Service: Orthopaedics; Laterality: Left; FOOT SURGERY Right x5 INCISION AND DRAINAGE FOOT Left OH PROCEDURE MAZE AFIB OSTECTOMY CALCANEOUS Left 09/10/2024 Procedure: ANKLE PARTIAL CALCANECTOMY; Surgeon: Dallas Camejo MD; Location: [facility] OR; Service: Orthopaedics; Laterality: Left; wOUND [...] not compromised. This report was generated using [employer] Speaking dictation software. Although every attempt has been made by the provider to proofread this document, occasional misspellings and typographical errors may still be present. documented in this encounter Miscellaneous Notes * Plan of Care - Mitesh Caldwell RN - 11/25/2024 7:51 PM EST Patient being discharged home with home services. Patient has a proline and will require oil heaterman antibiotics. Option care educated patient on home [...] Aguilar RD - 11/24/2024 12:27 PM EST [facility] Nutrition Note Visit Type: follow up assessment Reason for Dietitian/DTR Visit: at nutrition risk. Reason for Admission: Acute osteomyelitis of left calcaneus (HCC) Pertinent Medical History: Past Medical History: Diagnosis Date A-fib ([facility]) Acute osteomyelitis (HCC) Atrial flutter ([facility]) Cardiac pacemaker 2016 Carotid atherosclerosis Charcot's joint [...] Smoker Stage 3a chronic kidney disease (CKD) ([facility]) Nutrition Diagnosis: Intake: Inadequate oral intake (protein) [...] to be adjusted [facility] Nutrition Assessment: Nutrition [...] Intake: 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 Call ling within reach, safety precautions [...] is for discharge to inpatient rehab for long-term antibiotics when bed is available. Ellyn Patel [...] of Care Review Outcome: Progressing Vpaced on igyarrz-Vhbmerlr-jckmyow on IV Cubicin andIV Rocephin-Plan for PICC placement ?today for long-term anti-Bx's-see flowsheet for full assessment/vs Hansa Navarro [...] from the original note were not included. [address] [id number] OPERATIVE REPORT Patient Name: Blas Genao Date of : 1960 Date of Procedure: 11/17/2024 Surgeons and Role: * Rui Pabon MD - Primary * Corbin Lamb APRN - Physician Rn Acute Dialysis Pre-op Diagnosis: Pacemaker infection, subsequent encounter [T82.7XXD] Post-Op Diagnosis Codes: * Pacemaker infection, subsequent encounter [T82.7XXD] Details of Procedure Procedure(s): Extraction lead(s) laser from dual PM system; 83007 Micra Leadless Pacemaker Insert/Replacement; 18707 Additional Procedures Surgeon: Rui Pabon MD Rn Acute Dialysis: : : Corbin Lamb APRN Anesthesia: Monitor [...] femoral venous access was obtained. A 12 Kenyan sheath was placed in the right femoral vein. Through this an Amplatz stiff wire was advanced under fluoroscopic visualization to the right IJ. Using ultrasound-guided Seldinger technique left femoral venous access was obtained. 8 Kenyan sheath was placed in left femoral vein. [...] were pulled back. Active-fixation mechanisms on both [id number] active-fixation leads were retracted. Leads were cut. EZ interlocking stylette's were placed down both right atrial right ventricular leads and deployed. External silk sutures were used for additional support. We then began with a 14 Kenyan laser sheath. Under fluoroscopic visualization we started with the right ventricular lead. 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 We were able to progressto the innominate area. Here we reached the innominate region and had significant fibrosis. We then remove the 14 Kenyan laser sheath and moved to the right [...] then used the right femoral venous 12 Kenyan sheath and Amplatz wire which was in [...] ventricle positioning on the septum. ADAME and FINNISH position confirmed our placement.We did an initial deployment here. Sensing of paced R wave was 12 mV. Device impedance was 520 ohms. Threshold was initially 1.5 V that decreased to 1.2 V. However remained at 1.2 V at 0.24 ms. We therefore retrieved the device back into the deploying sheath. We then movedthe device slightly superior. ADAME and FINNISH position to confirm septal position. Initial testing [...] Z stitch was placed around the 8 Kenyan sheath as well and the sheath was [...] Implant Name Type Inv. Item Serial No. Vending Machine Assembler Lot No. LRB No. Used Action [id number] PACEMAKER CARDIAC MICRA AV2 LDLS [facility] - [id number] Pacemaker [id number] PACEMAKER CARDIAC MICRA AV2 LDLS [facility] [id number] [employer] Left 1 Implanted Specimens: Dual-chamber pacemaker generator; chronic right atrial 5076 active- fixation Medtronic lead; chronic right ventricular 5076 active-fixation Medtronic lead; 2 sewing rings. 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 Jeor Equation): 1920.63 [place]wood-St. Jeor (Considerations): 9768-8630 kcal (MSJ +1.2-1.3) based on 104 kg [...] able to make needs known. NPO at MD for pacemaker extraction. Placed on 1L NC [...] Daniel Ramos MD Neurology PGY-2 [facility] * Hospital Course - Gianluca Calles [...] while on IV antibiotics. Fax results to [phone]. Patient will need to be scheduled [...] R plantar foot, typically followed by wound center/sound assistant outpatient near patient's home. Had been using [...] at discharge summary. Tracy Lopez RN, CDS [phone] * Plan of Care - Eunice Khan [...] no change Outcome Evaluation: Assumed care from [id number]. Pt alert and oriented x4. Seems to be adjusting well. Recieved scheduled pain medication with good effect. Pt came to unit on 6L. Provider weaned downto 5L. POX: 95% on nasal cannula. No signs of respiratory distress. Electrolytes being replaced. Diet resumed. No signs of hyper/hypoglycemia during shift. Able to voice needs. Safety maintained. Ara iMner 11/11/2024 6:25 PM * Plan of Care - Nani Hollsi PA-C - 11/11/2024 4:43 PM EST Messaged [...] Case IDs Date Procedure Surgeon Location Status [id number] 11/05/24 LEFT BELOW KNEE AMPUTATION Dallas Camejo [...] 4 mg q3h PRN for severe pain ([id number]). 1x dose of liquid dilaudid 1mg given [...] by 3D imaging, and 46% by 2D Martienz biplane. The right ventricle is dilated. Right [...] Compared to previous outside study report from [facility] on 08/05/2024, Mitral and tricuspid [...] [facility] area. Referrals placed to [facility] rehabs Recommendation:inpt rehab Problem: Adult Inpatient Plan [...] at bedside. Offered to call his son Bals to provide him with an update but [...] Compared to previous outside study report from [facility] on 08/05/2024, Mitral and tricuspid [...] legal medical record Tracy Lopez RN, CDS [phone] * Provider Documentation Query - Shay Martin [...] legal medical record. Tracy Lopez RN, CDS [phone] * Plan of Care - Krystina Felipe [...] 11/06-will needupdated PT/OT notes, pt active with [facility], may need inpt rehab. CM will [...] Compared to previous outside study report from [facility] on 08/05/2024, Mitral and tricuspid [...] empagliflozin (JARDIANCE) 25 mg On hold since [facility] 11/04/2024 at 1503 until manually unheld; [...] to prior. Interpreted by: Roberto Tolbert MD Bench Boring Machine Operator XR Chest 1 view-Portable (STAT) Final Result Bilateral reticulonodular opacities concerning for interstitial edema. Superimposed atypical infection cannot be ruled out. Interpreted by: David Vogt DO Bench Boring Machine Operator I personally reviewed the images and the resident's preliminary report and AGREE with the report as it is now presented (RADPAL1). Echocardiogram (TTE) Comprehensive (Contrast PRN) Final Result Transesophageal Echocardiogram (Results Pending) CT Head w/contrast (Results Pending) Rafiq Chakraborty MD PGY-3 [facility] Internal Medicine [place] text preferred 11/07/24 11:26 AM * Plan [...] LBM 2/8. Dsg to L BKA cdi, Manager Regional Sales tin pourer in place. Pt reporting adequate paincontrol this [...] level of independence with self-care tasks. Baseline [facility] Daily Activity Score: 24 Current [facility] Daily Activity Score: 18 Objective Data Cognitive Status: Alert+oriented x4, follows multi step instructions and communicates appropriately Cognitive Function: Attention: intact Memory/recall: intact Safety Awareness: intact, however would benefit from further education and training Insight: good, however would benefit from further education and manager technical training Function: intact Activities of Daily Living: [...] History Past Medical History: Diagnosis Date A-fib ([facility]) Acute osteomyelitis ([facility]) Atrial flutter ([facility]) Cardiac pacemaker 2016 Carotid atherosclerosis Charcot's joint of right foot 2015 Chronic sciatica Complete AV block ([facility]) Diabetes mellitus ([facility]) TYPE II Diabetic foot ulcer ([facility]) ED (erectile dysfunction) Edema ESBL (extended spectrum beta-lactamase) producing bacteria infection GERD (gastroesophageal reflux disease) GI bleed Hyperlipidemia Hypertension Leukocytosis Metabolic bone disease Multiple drug resistant organism (MDRO) culture positive Non healing left heel wound Obesity Osteoarthrosis Osteomyelitis of both feet (HCC) PAD (peripheral artery disease) ([facility]) Primary osteoarthritis of knee Proteinuria Renal osteodystrophy [...] WOUND VAC; Surgeon: Dallas Camejo MD; [facility]; Service: Orthopaedics; Laterality: Left; FOOT SURGERY Right x5 INCISION AND DRAINAGE FOOT Left OH PROCEDURE MAZE AFIB OSTECTOMY CALCANEOUS Left 09/10/2024 Procedure: ANKLE PARTIAL CALCANECTOMY; Surgeon: Dallas Camejo MD; Location: [facility] OR; Service: Orthopaedics; Laterality: Left; wOUND [...] Progressive Mobility Level Achieved Transferring to Chair [facility] Daily Activity Putting on and taking off Lower Body Clothing? 2 Bathing (including washing/rinsing/drying)? 3 Toileting (includes using toilet, bedpan, or urinal)? 2 Putting on and taking off upper body clothing? 4 Taking care of personal grooming such as brushing teeth? 3 Eating meals? 4 [facility] Daily Activity Score 18 Therapy Assessment/Plan [...] OT goal 1 Bathing Goal 1 (OT) Hitchcock Level/Cues Needed (Bathing Goal 1, OT) modified independence Activity/Device (Bathing Goal 1, OT) bathing skills, all Time Frame (Bathing Goal 1, OT) 2 weeks Dressing Goal 1 (OT) Activity/Device (Dressing Goal 1, OT) lower body dressing Time Frame (Dressing Goal 1, OT) 1 week Hitchcock/Cues Needed (Dressing Goal 1, OT) modified independence Toileting Goal 1 (OT) Activity/Device (Toileting Goal 1, OT) toileting skills, all Time Frame (Toileting Goal 1, OT) 1 week Hitchcock Level/Cues Needed (Toileting Goal 1, OT) modified [...] not included. [facility] [address] [place] [id number] OPERATIVE REPORT Patient Name: Blas Genao Date [...] Type Source Tests Collected by Time Destination [id number] : Left leg below the knee amputation [...] Findings: see op note Anesthesia: general Staff: Fruit Grower: Mary Emery RN Scrub Precepting: Binta Griffith CST Fruit Grower Relief: Cynthia Desai RN Estimated Blood Loss: * No values recorded between 11/05/2024 2:06 PM and 11/05/2024 3:22 PM * Specimens: ID Type Source Tests Collected by Time Destination [id number] : Left leg below the knee amputation [...] Surgeon(s): SHUBHAM Triana MD Anesthesia: general Staff: Fruit Grower: Mary Emery RN Scrub Precepting: Binta Griffith CST Fruit Grower Relief: Cynthia Desai RN Estimated Blood Loss: 25 ml Specimens: ID Type Source Tests Collected by Time Destination [id number] : Left leg below the knee amputation [...] cards Consults: Needs a postop eval from [facility] [place]. Already being followed by ID, cards, [...] Plan for OR today. Will have TATIANNA. Electronic Induction Hardener to follow Naveen Kebede 11/05/2024 9:29 AM [...] doing TATIANNA first is not going to address change clerk. Leg wounds are like the source that has now seeded the valves and likely have involved thePPM. Will eventually need PP, evaluation and extraction afterwards. - Proceed with BKA - ABx per ID - Will need TATIANNA afterwards - Consider CT head to rule out septic emboli to brain petty with acute mental status change. Nitish Stephen MD [facility] T: [phone] F: [phone] Main Office: [address] [place] [address] * Provider Documentation Query - Juaquin Kern [...] at discharge summary. Tracy Lopez RN, CDS [phone] * Plan of Care - Belkys Diaz [...] Care Review Outcome: Progressing Flowsheets (Taken 11/04/2024 7903) Plan of Care Reviewed With: patient Progress: [...] Note Assessment completed with patient and/or patient's plastic products sales representative, medical record review and discussion with clinical team. CC met with the patient using social distancing. Provided a Case Coordination packet with contact information, CC pamphlet and Your Next Step: Care Outside the Hospital brochure to the patient and/or patient plastic products sales representative. Summary: 63 yo M admitted [...] home health services. Patient is active with [email or web address] for SN & PROJECT MANAGEMENT PROFESSIONAL svs. Patient went to a local wound [...] patient/family choice as outlined in the flowsheet -[facility] for resumption of SN & PROJECT MANAGEMENT PROFESSIONAL, requested addition of PT & OT to POC Barriers to discharge: OR 11/05 Manager Regional Sales - P2P requested ID plan PT/OT evals [...] at Transition: (inpatient rehab) home health care assisted other (see comments) Patient/Family Anticipates Transition to: home with help/services inpatient rehabilitation facility Current Outpatient/Agency/Support Group: ([facility] - SN 3 weekly (wound care) & PROJECT MANAGEMENT PROFESSIONAL x 2 weekly) homecare agency [facility] [...] [facility] [place] - Electrophysiology [address] [place] [address] Gretel Hinds, OUTLET MANAGER [address] [address] 12/14/2024 2:00 PM EDT Office Visit [facility] [address] [place] [address] Dallas Camejo MD [address] [place] [address] 12/16/2024 8:30 AM EDT Office Visit [facility] Infectious Disease [address] [place] [address] Ena Mtz MD [address] [place], [place] [id number] Pending Results Name Type Priority Associated Diagnoses Date/Time Transesophageal Echo-Anesthesia Echocardiography Routine 11/17/2024 1:50 PM [...] AM EST PM SINGLE LEAD EVAL WITH PROGRAM,[id number] Routine 11/18/2024 7:45 AM EST COMPLETE BLOOD [...] EST PM DUAL LEAD EVAL WITH PROGRAMMING, [id number] Routine 11/12/2024 1:15 PM EST POCT GLUCOSE, [...] EST PM DUAL LEAD EVAL WITH PROGRAMMING, [id number] Routine 11/11/2024 4:33 PM EST ECHOCARDIOGRAM TRANSESOPHAGEAL [...] CARE TEST O RDERALUCILLE Performing Organization Address [facility] Number [facility] See Below * (ABNORMAL) POCT Glucose, Fingerstick (11/25/2024 8:40 AM EST) POC Glucose 150(H) 65 - 99 mg/dL 11/25/2024 8:41 AM EST Blood specimen / Unknown 11/25/2024 8:40 AM EST 11/25/2024 8:41 AM EST Dallas Camejo MD POINT OF CARE TEST O RDERALUCILLE Performing Organization Address [facility] Phone Number [facility] See Below * (ABNORMAL) POCT Glucose, Fingerstick (11/24/2024 4:56 PM EST) POC Glucose 105(H) 65 - 99 mg/dL 11/24/2024 5:00 PM EST Blood specimen / Unknown 11/24/2024 4:56 PM EST 11/24/2024 5:00 PM EST Dallas Camejo MD POINT OF CARE TEST O RDERALUCILLE Performing Organization Address [facility] Phone Number [facility] See Below * Glucose, Fingerstick (POCT) [...] CARE TEST O RDERALUCILLE Performing Organization Address [facility] Phone Number [facility] See Below * (ABNORMAL) POCT Glucose, Fingerstick (11/24/2024 7:52 AM EST) Pathologist [facility] POC Glucose 103(H) 65 - 99 mg/dL 11/24/2024 8:11 AM EST Blood specimen / Unknown 11/24/2024 7:52 AM EST 11/24/2024 8:11 AM EST Dallas Camejo MD POINT OF CARE TEST O CRISTIANERALUCILLE Performing Organization Address [facility] Phone Number [facility] See Below * (ABNORMAL) Complete Blood Count WITHOUT Differential - in AM (11/24/2024 6:56 AM EST) [facility] White Blood Cell Count 10.0 4.0 - 11.0 Thou/uL 11/24/2024 9:12 AM [facility] Platelet Count 366 150 - 450 Thou/uL 11/24/2024 9:12 AM [facility] Hemoglobin 9.0(L) 13.0 - 17.7 g/dL 11/24/2024 9:12 AM [facility] Hematocrit 29.5(L) 39.0 - 54.0 % 11/24/2024 9:12 AM [facility] Red Blood Cell Count 3.25(L) 4.50 - 6.20 Mil/uL 11/24/2024 9:12 AM [facility] MCV 91 80 - 100 fL 11/24/2024 9:12 AM [facility] MCH 27.7 27.0 - 31.0 pg 11/24/2024 9:12 AM [facility] MCHC 30.5 30.0 - 36.0 g/dL 11/24/2024 9:12 AM [facility] RDW 18.0(H) 11.5 - 14.5 % 11/24/2024 9:12 AM [facility] MPV 10.8 7.5 - 12.5 fL 11/24/2024 9:12 AM [facility] Blood Blood specimen / Unknown 11/24/2024 6:56 AM EST 11/24/2024 8:52 AM EST Gianluca Calles MD [place] [address], [address] [address] * (ABNORMAL) Comprehensive Metabolic Panel (AM) (11/24/2024 6:56 AM EST) Glucose 99 65 - 99 mg/dL 11/24/2024 9:28 AM [facility] Comment:Fasting: <100 mg/dL, Non-Fasting: <200 mg/dL (ADA 2004) Blood Urea Nitrogen (BUN) 35(H) 8 - 21 mg/dL 11/24/2024 9:28 AM [facility] Creatinine 1.6(H) 0.5 - 1.3 mg/dL 11/24/2024 9:28 AM [facility] eGFR 48(L) >59 11/24/2024 9:28 AM [facility] Comment:CKD-EPI (2020) in mL /min/1.73 sq meters. Sodium 139 136 - 145 mmol/L 11/24/2024 9:28 AM [facility] Potassium 3.8 3.4 - 5.3 mmol/L 11/24/2024 9:28 AM [facility] Chloride 102 98 - 107 mmol/L 11/24/2024 9:28 AM [facility] CO2 24 22 - 33 mmol/L 11/24/2024 9:28 AM [facility] Calcium 8.9 8.7 - 10.5 mg/dL 11/24/2024 9:28 AM [facility] Alkaline Phosphatase 97 45 - 128 U/L 11/24/2024 9:28 AM [facility] Aspartate Aminotrans (AST) 14 10 - 55 U/L 11/24/2024 9:28 AM [facility] Alanine Aminotrans (ALT) 20 10 - 55 U/L 11/24/2024 9:28 AM [facility] Bilirubin, Total 0.2 0.2 - 1.0 mg/dL 11/24/2024 9:28 AM [facility] Protein, Total 6.7 6.3 - 8.3 g/dL 11/24/2024 9:28 AM [facility] Albumin 3.1(L) 3.4 - 4.8 g/dL 11/24/2024 9:28 AM [facility] BUN/Creatinine Ratio 22 10.0 - 25.0 Ratio 11/24/2024 9:28 AM [facility] Globulin 3.6 1.5 - 3.9 g/dL 11/24/2024 9:28 AM [facility] Albumin/Globulin Ratio 0.9(L) 1.0 - 3.0 Ratio 11/24/2024 9:28 AM [facility] Anion Gap 13 7 - 17 11/24/2024 9:28 AM [facility] Blood Blood specimen / Unknown 11/24/2024 6:56 AM EST 11/24/2024 8:52 AM EST Gianluca Calles MD [place] [address], [address] [address] * (ABNORMAL) POCT Glucose, Fingerstick (11/23/2024 8:48 PM EST) POC Glucose 116(H) 65 - 99 mg/dL 11/23/2024 8:49 PM EST Blood specimen / Unknown 11/23/2024 8:48 PM EST 11/23/2024 8:49 PM EST Dallas Camejo MD POINT OF CARE TEST O RDERABLES HOSPITAL LAB See Below * POCT Glucose, Fingerstick (11/23/2024 4:35 PM EST) Pathologist [facility] POC Glucose 84 65 - 99 mg/dL 11/23/2024 4:36 PM EST Blood specimen / Unknown 11/23/2024 4:35 PM EST 11/23/2024 4:36 PM EST Dallas Camejo MD POINT OF CARE TEST O RDERALUCILLE Performing Organization Address [facility] Number [facility] See Below * (ABNORMAL) POCT Glucose, Fingerstick (11/23/2024 11:35 AM EST) Pathologist [facility] POC Glucose 151(H) 65 - 99 mg/dL 11/23/2024 11:36 AM EST Blood specimen / Unknown 11/23/2024 11:35 AM EST 11/23/2024 11:36 AM EST Dallas Camejo MD POINT OF CARE TEST O JOSEPH Performing Organization Address [facility] See Below * Influenza A/B, RSV, SARS-CoV-2 BALJINDER Multiplex (FLUVID) (11/23/2024 10:45 AM EST) [facility] Influenza A Virus Not Detected Not Detected 11/23/2024 12:00 PM [facility] Influenza B Virus Not Detected Not Detected 11/23/2024 12:00 PM [facility] SARS-CoV-2 Not Detected Not Detected 11/23/2024 12:00 PM [facility] Respiratory Syncytial Virus Not Detected Not Detected 11/23/2024 12:00 PM [facility] Comment Negative results do not preclude SARS-CoV-2, Influenza or RSV infection and should not be used as the sole basis for treatment or other patient management decisions. 11/23/2024 12:00 PM [facility] Swab, Nasopharyngeal Nasopharyngeal swab / Unknown 11/23/2024 10:45 AM EST 11/23/2024 11:08 AM EST Gianluca Calles MD MICROBIOLOGY - GENER AL ORDERABLES Performing Organization Address [facility]/[place] [address], [place] [address] * (ABNORMAL) POCT Glucose, Fingerstick (11/23/2024 7:34 AM EST) POC Glucose 126(H) 65 - 99 mg/dL 11/23/2024 7:35 AM EST Blood specimen / Unknown 11/23/2024 7:34 AM EST 11/23/2024 7:35 AM EST Dallas Camejo MD POINT OF CARE TEST O RDERABLES Performing Organization Address [facility] Co de Phone Number HOSPITAL LAB See Below * (ABNORMAL) C-REACTIVE PROTEIN (11/23/2024 6:43 AM EST) C-Reactive Protein 4.88(H) 0 - 0.49 mg/dL 11/23/2024 11:53 AM EST [facility] 11/23/2024 6:43 AM EST 11/23/2024 6:49 AM EST Gianluca Calles MD LAB BLOOD ORDERABLES Performing Organization Address [facility] [place] [address], [place] [address] * (ABNORMAL) Erythrocyte Sedimentation Rate (ESR) (11/23/2024 6:43 AM EST) Erythrocyte Sediment Rate (ESR) 62(H) <20 MM/HR 11/23/2024 12:07 PM EST [facility] Blood specimen / Unknown 11/23/2024 6:43 AM EST 11/23/2024 6:49 AM EST Gianluca Calles MD LAB BLOOD ORDERABLES Performing Organization Address [facility]/[place] [address], [address] [address] * (ABNORMAL) HEPATIC FUNCTION PANEL (11/23/2024 6:43 AM EST) Alkaline Phosphatase 103 45 - 128 U/L 11/23/2024 11:53 AM [facility] Aspartate Aminotrans (AST) 22 10 - 55 U/L 11/23/2024 11:53 AM [facility] Alanine Aminotrans (ALT) 28 10 - 55 U/L 11/23/2024 11:53 AM [facility] Bilirubin, Total 0.2 0.2 - 1.0 mg/dL 11/23/2024 11:53 AM [facility] Protein, Total 6.6 6.3 - 8.3 g/dL 11/23/2024 11:53 AM [facility] Albumin 3.1(L) 3.4 - 4.8 g/dL 11/23/2024 11:53 AM [facility] Bilirubin, Direct 0.1 0 - 0.2 mg/dL 11/23/2024 11:53 AM [facility] Globulin 3.5 1.5 - 3.9 g/dL 11/23/2024 11:53 AM [facility] Albumin/Globulin Ratio 0.9(L) 1.0 - 3.0 Ratio 11/23/2024 11:53 AM [facility] 11/23/2024 6:43 AM EST 11/23/2024 6:49 AM EST Gianluca Calles MD LAB BLOOD ORDERABLES Performing Organization Address City/State/[facility] Co de Phone Number [address] [address], [address] [address] * CREATINE KINASE (CK) (11/23/2024 6:43 AM EST) Creatine Kinase (CK) 36 24 - 204 U/L 11/23/2024 11:53 AM [facility] 11/23/2024 6:43 AM EST 11/23/2024 6:49 AM EST Gianluca Calles MD LAB BLOOD ORDERABLES [address] [address], [address] [address] * (ABNORMAL) Complete Blood Count WITHOUT Differential - in AM (11/23/2024 6:43 AM EST) White Blood Cell Count 10.8 4.0 - 11.0 Thou/uL 11/23/2024 7:01 AM [facility] Platelet Count 353 150 - 450 Thou/uL 11/23/2024 7:01 AM [facility] Hemoglobin 8.7(L) 13.0 - 17.7 g/dL 11/23/2024 7:01 AM [facility] Hematocrit 28.3(L) 39.0 - 54.0 % 11/23/2024 7:01 AM [facility] Red Blood Cell Count 3.14(L) 4.50 - 6.20 Mil/uL 11/23/2024 7:01 AM [facility] MCV 90 80 - 100 fL 11/23/2024 7:01 AM [facility] MCH 27.7 27.0 - 31.0 pg 11/23/2024 7:01 AM [facility] MCHC 30.7 30.0 - 36.0 g/dL 11/23/2024 7:01 AM [facility] RDW 18.0(H) 11.5 - 14.5 % 11/23/2024 7:01 AM [facility] MPV 10.4 7.5 - 12.5 fL 11/23/2024 7:01 AM [facility] Blood Blood specimen / Unknown 11/23/2024 6:43 AM EST 11/23/2024 6:49 AM EST Gianluca Calles MD LAB BLOOD ORDERABLES [address] [address], [address] [address] * Magnesium (AM) (11/23/2024 6:43 AM EST) Magnesium 2.2 1.6 - 2.7 mg/dL 11/23/2024 7:22 AM [facility] Blood Blood specimen / Unknown 11/23/2024 6:43 AM EST 11/23/2024 6:49 AM EST Gianluca Calles MD LAB BLOOD ORDERABLES [address] [address], [address] [address] * (ABNORMAL) Basic Metabolic Panel (AM) (11/23/2024 6:43 AM EST) Glucose 114(H) 65 - 99 mg/dL 11/23/2024 7:22 AM [facility] Comment:Fasting: <100 mg/dL, Non-Fasting: <200 mg/dL (ADA 2004) Blood Urea Nitrogen (BUN) 31(H) 8 - 21 mg/dL 11/23/2024 7:22 AM [facility] Creatinine 1.5(H) 0.5 - 1.3 mg/dL 11/23/2024 7:22 AM [facility] eGFR 52(L) >59 11/23/2024 7:22 AM [facility] Comment:CKD-EPI (2020) in mL /min/1.73 sq meters. Sodium 140 136 - 145 mmol/L 11/23/2024 7:22 AM [facility] Potassium 4.0 3.4 - 5.3 mmol/L 11/23/2024 7:22 AM [facility] Chloride 104 98 - 107 mmol/L 11/23/2024 7:22 AM [facility] CO2 25 22 - 33 mmol/L 11/23/2024 7:22 AM [facility] Anion Gap 11 7 - 17 11/23/2024 7:22 AM [facility] Calcium 9.0 8.7 - 10.5 mg/dL 11/23/2024 7:22 AM [facility] BUN/Creatinine Ratio 21 10.0 - 25.0 Ratio 11/23/2024 7:22 AM [facility] Blood Blood specimen / Unknown 11/23/2024 6:43 AM EST 11/23/2024 6:49 AM EST Gianluca Calles MD LAB BLOOD ORDERABLES [address] [address], [address] [address] * (ABNORMAL) POCT Glucose, Fingerstick (11/22/2024 9:02 PM EST) POC Glucose 138(H) 65 - 99 mg/dL 11/22/2024 9:02 PM EST Blood specimen / Unknown 11/22/2024 9:02 PM EST 11/22/2024 9:03 PM EST Dallas Camejo MD POINT OF CARE TEST O RDERABLES [facility] LAB See Below * (ABNORMAL) POCT Glucose, Fingerstick (11/22/2024 4:36 PM EST) POC Glucose 128(H) 65 - 99 mg/dL 11/22/2024 4:37 PM EST Blood specimen / Unknown 11/22/2024 4:36 PM EST 11/22/2024 4:37 PM EST Dallas Camejo MD POINT OF CARE TEST O RDERABLES [facility] LAB See Below * PM LEADLESS SINGLE-CARDIAC CHAMBER EVAL W/PROGRAM (IN PERSON), [id number] (11/22/2024 2:20 PM EST) Date Time Interrogation Session 20,250,224,13 5,809 PACEART Implantable Pulse Generator Vending Machine Assembler Medtronic PACEART Implantable Pulse Generator Model [id number] Micra AV2 PACEART Implantable Pulse Generator Serial Number [id number] PACEART Implantable Pulse Generator Type Pacemaker PACEART [...] last reset 99.86 % PACEART Otf Statistic DRAFTER PLUMBING Percent 100.00 % PACEART Otf Statistic VS Percent 0 % PACEART Anatomical Region Laterality Modality Other 11/22/2024 1:58 PM EST Narrative 11/28/2024 10:40 AM EST Micra AV leadless Pacemaker evaluation completed on B10E. Per patient request and verbal order from SHUBHAM Pitts: LRL increased from 50 bpm to 60 bpm. Presenting rhythm: AM/DRAFTER PLUMBING @ 62 bpm. Underlying rhythm: CHB. AM/DRAFTER PLUMBING pacing 81%, with total V-pacing 100%. Battery and testing results evaluated and within normal limits. Normal leadless pacemaker function. Colette RN Gianluca Calles MD CV CARDIAC SERVICES ORDERABLES [...] CARE TEST O RDERABLES Performing Organization Address City/[facility]/ZIP Co de Phone Number HOSPITAL LAB See Below * Magnesium (AM) (11/22/2024 7:31 AM EST) Pathologist [facility] Magnesium 2.0 1.6 - 2.7 mg/dL 11/22/2024 8:17 AM [facility] Blood (Plasma/Serum) 11/22/2024 7:31 AM EST 11/22/2024 7:54 AM EST Gianluca Calles MD LAB BLOOD ORDERABLES Performing Organization Address [facility]/[place] [address], [place] [address] * (ABNORMAL) Complete Blood Count WITHOUT Differential - in AM (11/22/2024 7:31 AM EST) [facility] White Blood Cell Count 12.1(H) 4.0 - 11.0 Thou/uL 11/22/2024 8:19 AM [facility] Platelet Count 333 150 - 450 Thou/uL 11/22/2024 8:19 AM [facility] Hemoglobin 8.1(L) 13.0 - 17.7 g/dL 11/22/2024 8:19 AM [facility] Hematocrit 26.2(L) 39.0 - 54.0 % 11/22/2024 8:19 AM [facility] Red Blood Cell Count 2.88(L) 4.50 - 6.20 Mil/uL 11/22/2024 8:19 AM [facility] MCV 91 80 - 100 fL 11/22/2024 8:19 AM [facility] MCH 28.1 27.0 - 31.0 pg 11/22/2024 8:19 AM [facility] MCHC 30.9 30.0 - 36.0 g/dL 11/22/2024 8:19 AM [facility] RDW 18.0(H) 11.5 - 14.5 % 11/22/2024 8:19 AM [facility] MPV 10.5 7.5 - 12.5 fL 11/22/2024 8:19 AM [facility] Blood Blood specimen / Unknown 11/22/2024 7:31 AM EST 11/22/2024 7:54 AM EST Gianluca Calles MD LAB BLOOD ORDERABLES [address] [address], [address] [address] * (ABNORMAL) Basic Metabolic Panel (AM) (11/22/2024 7:31 AM EST) Glucose 178(H) 65 - 99 mg/dL 11/22/2024 8:17 AM [facility] Comment:Fasting: <100 mg/dL, Non-Fasting: <200 mg/dL (ADA 2004) Blood Urea Nitrogen (BUN) 36(H) 8 - 21 mg/dL 11/22/2024 8:17 AM [facility] Creatinine 1.6(H) 0.5 - 1.3 mg/dL 11/22/2024 8:17 AM [facility] eGFR 48(L) >59 11/22/2024 8:17 AM [facility] Comment:CKD-EPI (2020) in mL /min/1.73 sq meters. Sodium 137 136 - 145 mmol/L 11/22/2024 8:17 AM [facility] Potassium 4.2 3.4 - 5.3 mmol/L 11/22/2024 8:17 AM [facility] Chloride 101 98 - 107 mmol/L 11/22/2024 8:17 AM [facility] CO2 27 22 - 33 mmol/L 11/22/2024 8:17 AM [facility] Anion Gap 9 7 - 17 11/22/2024 8:17 AM [facility] Calcium 8.8 8.7 - 10.5 mg/dL 11/22/2024 8:17 AM EST [facility] BUN/Creatinine Ratio 23 10.0 - 25.0 Ratio 11/22/2024 8:17 AM EST [facility] Blood (Plasma/Serum) 11/22/2024 7:31 AM EST 11/22/2024 7:54 AM EST Gianluca Calles MD LAB BLOOD ORDERABLES Performing Organization Address City/[facility]/ZIP Co de Phone Number [address] [address], [address] [address] * (ABNORMAL) POCT Glucose, Fingerstick (11/21/2024 9:28 [...] MD POINT OF CARE TEST O RDERABLES [facility] LAB See Below * (ABNORMAL) POCT Glucose, Fingerstick (11/21/2024 7:45 AM EST) [facility] POC Glucose 175(H) 65 - 99 mg/dL 11/21/2024 7:54 AM EST Blood specimen / Unknown 11/21/2024 7:45 AM EST 11/21/2024 7:54 AM EST Dallas Camejo MD POINT OF CARE TEST O RDERABLES Performing Organization Address City/[facility]/ZIP Co de Phone Number [facility] LAB See Below * Magnesium (AM) (11/21/2024 6:58 AM EST) [facility] Magnesium 2.1 1.6 - 2.7 mg/dL 11/21/2024 8:14 AM EST [facility] Blood (Plasma/Serum) 11/21/2024 6:58 AM EST 11/21/2024 7:36 AM EST Gianluca Calles MD LAB BLOOD ORDERABLES Performing Organization Address [facility]/[place] [address], [place] [address] * (ABNORMAL) Complete Blood Count WITHOUT Differential - in AM (11/21/2024 6:58 AM EST) [facility] White Blood Cell Count 14.0(H) 4.0 - 11.0 Thou/uL 11/21/2024 7:55 AM [facility] Platelet Count 329 150 - 450 Thou/uL 11/21/2024 7:55 AM [facility] Hemoglobin 8.2(L) 13.0 - 17.7 g/dL 11/21/2024 7:55 AM [facility] Hematocrit 26.7(L) 39.0 - 54.0 % 11/21/2024 7:55 AM [facility] Red Blood Cell Count 2.95(L) 4.50 - 6.20 Mil/uL 11/21/2024 7:55 AM [facility] MCV 91 80 - 100 fL 11/21/2024 7:55 AM [facility] MCH 27.8 27.0 - 31.0 pg 11/21/2024 7:55 AM [facility] MCHC 30.7 30.0 - 36.0 g/dL 11/21/2024 7:55 AM [facility] RDW 17.8(H) 11.5 - 14.5 % 11/21/2024 7:55 AM [facility] MPV 10.4 7.5 - 12.5 fL 11/21/2024 7:55 AM [facility] Blood Blood specimen / Unknown 11/21/2024 6:58 AM EST 11/21/2024 7:36 AM EST Gianluca Calles MD LAB BLOOD ORDERABLES Performing Organization Address City/State/[place] [address], [place] [address] * (ABNORMAL) Basic Metabolic Panel (AM) (11/21/2024 6:58 AM EST) Glucose 153(H) 65 - 99 mg/dL 11/21/2024 8:14 AM [facility] Comment:Fasting: <100 mg/dL, Non-Fasting: <200 mg/dL (ADA 2005) Blood Urea Nitrogen (BUN) 38(H) 8 - 21 mg/dL 11/21/2024 8:14 AM [facility] Creatinine 1.8(H) 0.5 - 1.3 mg/dL 11/21/2024 8:14 AM [facility] eGFR 42(L) >59 11/21/2024 8:14 AM [facility] Comment:CKD-EPI (2020) in mL /min/1.73 sq meters. Sodium 136 136 - 145 mmol/L 11/21/2024 8:14 AM [facility] Potassium 3.7 3.4 - 5.3 mmol/L 11/21/2024 8:14 AM [facility] Chloride 99 98 - 107 mmol/L 11/21/2024 8:14 AM [facility] CO2 27 22 - 33 mmol/L 11/21/2024 8:14 AM [facility] Anion Gap 10 7 - 17 11/21/2024 8:14 AM [facility] Calcium 8.8 8.7 - 10.5 mg/dL 11/21/2024 8:14 AM [facility] BUN/Creatinine Ratio 21 10.0 - 25.0 Ratio 11/21/2024 8:14 AM [facility] Blood (Plasma/Serum) 11/21/2024 6:58 AM EST 11/21/2024 7:36 AM EST Gianluca Calles MD [place] [address], [place] [address] * (ABNORMAL) POCT Glucose, Fingerstick (11/20/2024 8:16 [...] CARE TEST O RDGHANSHYAM Performing Organization Address City/[facility]/ZIP Co de Phone Number [facility] LAB See Below * (ABNORMAL) POCT Glucose, Fingerstick (11/20/2024 7:58 AM EST) Pathologist [facility] POC Glucose 166(H) 65 - 99 mg/dL 11/20/2024 8:02 AM EST Blood specimen / Unknown 11/20/2024 7:58 AM EST 11/20/2024 8:02 AM EST Dallas Camejo MD POINT OF CARE TEST O JOSEPH Performing Organization Address City/[facility]/[place] Co de Phone Number [facility] LAB See Below * Magnesium (AM) (11/20/2024 6:59 AM EST) Pathologist [facility] Magnesium 2.2 1.6 - 2.7 mg/dL 11/20/2024 8:04 AM EST [facility] Blood (Plasma/Serum) 11/20/2024 6:59 AM EST 11/20/2024 7:31 AM EST Gianluca Calles MD LAB BLOOD ORDERABLES Performing Organization Address [facility] Co de Phone Number [address] [address], [address] [address] * (ABNORMAL) Complete Blood Count WITHOUT Differential - in AM (11/20/2024 6:59 AM EST) Pathologist [facility] White Blood Cell Count 11.9(H) 4.0 - 11.0 Thou/uL 11/20/2024 7:45 AM EST [facility] Platelet Count 339 150 - 450 Thou/uL 11/20/2024 7:45 AM [facility] Hemoglobin 8.3(L) 13.0 - 17.7 g/dL 11/20/2024 7:45 AM [facility] Hematocrit 27.2(L) 39.0 - 54.0 % 11/20/2024 7:45 AM [facility] Red Blood Cell Count 3.01(L) 4.50 - 6.20 Mil/uL 11/20/2024 7:45 AM [facility] MCV 90 80 - 100 fL 11/20/2024 7:45 AM [facility] MCH 27.6 27.0 - 31.0 pg 11/20/2024 7:45 AM [facility] MCHC 30.5 30.0 - 36.0 g/dL 11/20/2024 7:45 AM [facility] RDW 17.5(H) 11.5 - 14.5 % 11/20/2024 7:45 AM [facility] MPV 10.7 7.5 - 12.5 fL 11/20/2024 7:45 AM [facility] Blood Blood specimen / Unknown 11/20/2024 6:59 AM EST 11/20/2024 7:31 AM EST Gianluca Calles MD LAB BLOOD ORDERABLES Performing Organization Address City/State/[place] [address], [place] [address] * (ABNORMAL) Basic Metabolic Panel (AM) (11/20/2024 6:59 AM EST) Glucose 155(H) 65 - 99 mg/dL 11/20/2024 8:04 AM [facility] Comment:Fasting: <100 mg/dL, Non-Fasting: <200 mg/dL (ADA 2005) Blood Urea Nitrogen (BUN) 47(H) 8 - 21 mg/dL 11/20/2024 8:04 AM [facility] Creatinine 1.9(H) 0.5 - 1.3 mg/dL 11/20/2024 8:04 AM [facility] eGFR 39(L) >59 11/20/2024 8:04 AM [facility] Comment:CKD-EPI (2020) in mL /min/1.73 sq meters. Sodium 137 136 - 145 mmol/L 11/20/2024 8:04 AM [facility] Potassium 3.8 3.4 - 5.3 mmol/L 11/20/2024 8:04 AM [facility] Chloride 98 98 - 107 mmol/L 11/20/2024 8:04 AM [facility] CO2 30 22 - 33 mmol/L 11/20/2024 8:04 AM [facility] Anion Gap 9 7 - 17 11/20/2024 8:04 AM [facility] Calcium 9.0 8.7 - 10.5 mg/dL 11/20/2024 8:04 AM [facility] BUN/Creatinine Ratio 25 10.0 - 25.0 Ratio 11/20/2024 8:04 AM [facility] Blood (Plasma/Serum) 11/20/2024 6:59 AM EST 11/20/2024 7:31 AM EST Gianluca Calles MD [place] [address], [place] [address] * (ABNORMAL) POCT Glucose, Fingerstick (11/19/2024 4:13 PM EST) POC Glucose 274(H) 65 - 99 mg/dL 11/19/2024 4:14 PM EST Blood specimen / Unknown 11/19/2024 4:13 PM EST 11/19/2024 4:14 PM EST Dallas Camejo MD POINT OF CARE TEST O RDERABLES HOSPITAL LAB See Below * (ABNORMAL) Urinalysis with Reflex to Microscopic (11/19/2024 4:00 PM EST) Color Yellow 11/19/2024 4:30 PM [facility] Clarity Clear 11/19/2024 4:30 PM [facility] Specific [place] 1.008 1.003 - 1.030 11/19/2024 4:30 PM [facility] pH 6.0 5.0 - 8.0 11/19/2024 4:30 PM [facility] Leukocyte Esterase Large(A) Negative 11/19/2024 4:30 PM [facility] Nitrite Negative Negative 11/19/2024 4:30 PM [facility] Protein Negative Negative 11/19/2024 4:30 PM [facility] Glucose 0 0 - 99 mg/dL 11/19/2024 4:30 PM [facility] Ketones Negative Negative 11/19/2024 4:30 PM [facility] Blood Negative Negative 11/19/2024 4:30 PM [facility] Bilirubin Negative Negative 11/19/2024 4:30 PM [facility] WBC >25(H) 0 - 4 per hpf 11/19/2024 4:30 PM [facility] RBC 2 0 - 4 per hpf 11/19/2024 4:30 PM [facility] X-Specimen 16 Voided urine specimen / Unknown 11/19/2024 4:00 PM EST 11/19/2024 4:18 PM EST Anmol Reynoso [place] [address], [place] [address] * OSMOLALITY, URINE (11/19/2024 4:00 PM EST) Osmolality, Urine 201 50 - 1,200 mOsm/Kg 11/19/2024 6:20 PM [facility] Urine Urine specimen / Unknown 11/19/2024 4:00 PM EST 11/19/2024 4:19 PM EST Anmol Reynoso MD URINE ORDERABLES Performing Organization Address City/[facility]/[place] [address], [address] [address] * Urea Nitrogen, Urine, Random (11/19/2024 4:00 PM EST) Urea Nitrogen, Random Urine 273 mg/dL 11/19/2024 5:43 PM EST [facility] Comment:Reference range not established for random specimen. Urine Urine specimen / Unknown 11/19/2024 4:00 PM EST 11/19/2024 4:19 PM EST Anmol Reynoso MD URINE ORDERABLES [address] [address], [address] [address] * SODIUM, URINE, RANDOM (11/19/2024 4:00 PM EST) Sodium, Urine Random 21 mmol/L 11/19/2024 5:43 PM EST [facility] Comment:Reference range not established for random specimen. Urine Urine specimen / Unknown 11/19/2024 4:00 PM EST 11/19/2024 4:19 PM EST Anmol Reynoso MD URINE ORDERABLES Performing Organization Address City/[facility]/ZIP Co de Phone Number [address] [address], [address] [address] * CREATININE, URINE, RANDOM (11/19/2024 4:00 PM EST) Creatinine, Urine, Random 31 mg/dL 11/19/2024 5:43 PM EST [facility] Comment:Reference range not established for random specimen. Urine Urine specimen / Unknown 11/19/2024 4:00 PM EST 11/19/2024 4:19 PM EST Anmol Reynoso MD URINE ORDERABLES Performing Organization Address City/[facility]/ZIP Co de Phone Number [address] [address], [address] [address] * Chloride, Urine, Random (11/19/2024 4:00 PM EST) Chloride, Urine, Random 23 mmol/L 11/19/2024 5:43 PM EST [facility] Comment:Reference range not established for random specimen. Urine Urine specimen / Unknown 11/19/2024 4:00 PM EST 11/19/2024 4:19 PM EST Anmol Reynoso MD URINE ORDERABLES [address] [address], [address] [address] * CVC INSERT (TUNNEL) W/O PORT GREATER [...] A preprocedure time-out was performed per [facility] protocol. The right neck and chest was [...] access, a 26 cm long dual lumen 5-Kenyan cuffed tunneled catheter was placed under fluoroscopic [...] A preprocedure time-out was performed per [facility] protocol. The right neck and chest was [...] access, a 26 cm long dual lumen 5-Kenyan cuffed tunneled catheter was placed under fluoroscopic [...] CARE TEST O RDERABLES Performing Organization Address [facility]/[place] Co vt Phone Number [facility] LAB See Below * (ABNORMAL) POCT Glucose, Fingerstick (11/19/2024 8:06 AM EST) POC Glucose 190(H) 65 - 99 mg/dL 11/19/2024 8:08 AM EST Blood specimen / Unknown 11/19/2024 8:06 AM EST 11/19/2024 8:08 AM EST Dallas Camejo MD POINT OF CARE TEST O RDERALUCILLE Performing Organization Address [facility] Co vt Phone Number [facility] See Below * (ABNORMAL) Complete Blood Count WITHOUT Differential - Daily x2 (11/19/2024 7:54 AM EST) Pathologist [facility] White Blood Cell Count 10.1 4.0 - 11.0 Thou/uL 11/19/2024 8:48 AM [facility] Platelet Count 354 150 - 450 Thou/uL 11/19/2024 8:48 AM [facility] Hemoglobin 8.2(L) 13.0 - 17.7 g/dL 11/19/2024 8:48 AM [facility] Hematocrit 26.6(L) 39.0 - 54.0 % 11/19/2024 8:48 AM [facility] Red Blood Cell Count 2.99(L) 4.50 - 6.20 Mil/uL 11/19/2024 8:48 AM [facility] MCV 89 80 - 100 fL 11/19/2024 8:48 AM [facility] MCH 27.4 27.0 - 31.0 pg 11/19/2024 8:48 AM [facility] MCHC 30.8 30.0 - 36.0 g/dL 11/19/2024 8:48 AM [facility] RDW 17.2(H) 11.5 - 14.5 % 11/19/2024 8:48 AM [facility] MPV 10.8 7.5 - 12.5 fL 11/19/2024 8:48 AM [facility] Blood Blood specimen / Unknown 11/19/2024 7:54 AM EST 11/19/2024 8:33 AM EST Corbin Lamb [facility] [place] [address], [place] [address] * Magnesium (Daily x 2 days) (11/19/2024 7:54 AM EST) Magnesium 2.1 1.6 - 2.7 mg/dL 11/19/2024 9:00 AM [facility] Blood (Plasma/Serum) 11/19/2024 7:54 AM EST 11/19/2024 8:33 AM EST Corbin Lamb APRN [place] [address], [place] [address] * (ABNORMAL) Basic Metabolic Panel (Daily x 2 days) (11/19/2024 7:54 AM EST) Glucose 169(H) 65 - 99 mg/dL 11/19/2024 9:00 AM [facility] Comment:Fasting: <100 mg/dL, Non-Fasting: <200 mg/dL (ADA 2005) Blood Urea Nitrogen (BUN) 43(H) 8 - 21 mg/dL 11/19/2024 9:00 AM [facility] Creatinine 1.8(H) 0.5 - 1.3 mg/dL 11/19/2024 9:00 AM [facility] eGFR 42(L) >59 11/19/2024 9:00 AM [facility] Comment:CKD-EPI (2020) in mL /min/1.73 sq meters. Sodium 132(L) 136 - 145 mmol/L 11/19/2024 9:00 AM [facility] Potassium 3.7 3.4 - 5.3 mmol/L 11/19/2024 9:00 AM [facility] Chloride 92(L) 98 - 107 mmol/L 11/19/2024 9:00 AM [facility] CO2 30 22 - 33 mmol/L 11/19/2024 9:00 AM [facility] Anion Gap 10 7 - 17 11/19/2024 9:00 AM [facility] Calcium 9.1 8.7 - 10.5 mg/dL 11/19/2024 9:00 AM [facility] BUN/Creatinine Ratio 24 10.0 - 25.0 Ratio 11/19/2024 9:00 AM [facility] Blood (Plasma/Serum) 11/19/2024 7:54 AM EST 11/19/2024 8:33 AM EST Corbin Lamb APRN [place] [address], [place] [address] * (ABNORMAL) POCT Glucose, Fingerstick (11/18/2024 9:04 PM EST) POC Glucose 253(H) 65 - 99 mg/dL 11/18/2024 9:11 PM EST Blood specimen / Unknown 11/18/2024 9:04 PM EST 11/18/2024 9:11 PM EST Dallas Camejo MD POINT OF CARE TEST O JOSEPH Performing Organization Address [facility] Phone Number [facility] LAB See Below * (ABNORMAL) POCT Glucose, Fingerstick (11/18/2024 4:56 PM EST) POC Glucose 305(H) 65 - 99 mg/dL 11/18/2024 4:58 PM EST Blood specimen / Unknown 11/18/2024 4:56 PM EST 11/18/2024 4:57 PM EST Dallas Camejo MD POINT OF CARE TEST O CRISTIANERALUCILLE Performing Organization Address [facility] LAB See Below * (ABNORMAL) POCT Glucose, Fingerstick (11/18/2024 12:00 PM EST) POC Glucose 253(H) 65 - 99 mg/dL 11/18/2024 12:01 PM EST Blood specimen / Unknown 11/18/2024 12:00 PM EST 11/18/2024 12:01 PM EST Dallas Camejo MD POINT OF CARE TEST O JOSEPH Performing Organization Address [facility] Number [facility] See Below * (ABNORMAL) POCT Glucose, Fingerstick (11/18/2024 7:53 AM EST) POC Glucose 129(H) 65 - 99 mg/dL 11/18/2024 7:58 AM EST Blood specimen / Unknown 11/18/2024 7:53 AM EST 11/18/2024 7:58 AM EST Dallas Camejo MD POINT OF CARE TEST O CRISTIANERALUCILLE Performing Organization Address [facility] Number [facility] See Below * PM SINGLE LEAD EVAL WITH PROGRAM,[id number] (11/18/2024 7:45 AM EST) Date Time Interrogation Session 20,250,220,07 3,509 PACEART Implantable Pulse Generator 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 Presenting rhythm: AM-DRAFTER PLUMBING @ 69 bpm. Underlying rhythm: No ventricular response greater than 40 bpm. AM-DRAFTER PLUMBING @ 84.8%. Battery and device parameters evaluated and within normal limits. Normal pacemaker function. Micra pacemakers do not record events. Sri ePna RN Corbin Lamb APRN CV CARDIAC SERVICE S ORDERABLES * Creatine Kinase (CK) (11/18/2024 7:15 AM EST) Creatine Kinase (CK) 49 24 - 204 U/L 11/18/2024 8:22 AM EST [facility] Blood (Plasma/Serum) 11/18/2024 7:15 AM EST 11/18/2024 7:47 AM EST Corbin Lamb APRN LAB BLOOD ORDERABL ES [address] [address], [address] [address] * (ABNORMAL) Complete Blood Count WITHOUT Differential - Daily x2 (11/18/2024 7:15 AM EST) White Blood Cell Count 12.3(H) 4.0 - 11.0 Thou/uL 11/18/2024 8:00 AM [facility] Platelet Count 349 150 - 450 Thou/uL 11/18/2024 8:00 AM [facility] Hemoglobin 8.1(L) 13.0 - 17.7 g/dL 11/18/2024 8:00 AM [facility] Hematocrit 25.5(L) 39.0 - 54.0 % 11/18/2024 8:00 AM [facility] Red Blood Cell Count 2.90(L) 4.50 - 6.20 Mil/uL 11/18/2024 8:00 AM [facility] MCV 88 80 - 100 fL 11/18/2024 8:00 AM [facility] MCH 27.9 27.0 - 31.0 pg 11/18/2024 8:00 AM [facility] MCHC 31.8 30.0 - 36.0 g/dL 11/18/2024 8:00 AM [facility] RDW 17.1(H) 11.5 - 14.5 % 11/18/2024 8:00 AM [facility] MPV 10.6 7.5 - 12.5 fL 11/18/2024 8:00 AM [facility] Blood Blood specimen / Unknown 11/18/2024 7:15 AM EST 11/18/2024 7:47 AM EST Corbin Lamb APRN LAB BLOOD ORDERABL ES [address] [address], [address] [address] * Magnesium (Daily x 2 days) (11/18/2024 7:15 AM EST) Pathologist [facility] Magnesium 2.0 1.6 - 2.7 mg/dL 11/18/2024 8:22 AM [facility] Blood (Plasma/Serum) 11/18/2024 7:15 AM EST 11/18/2024 7:47 AM EST Corbin Lamb OUTLET MANAGER LAB BLOOD ORDERABL ES [address] [address], [address] [address] * (ABNORMAL) Basic Metabolic Panel (Daily x 2 days) (11/18/2024 7:15 AM EST) Glucose 114(H) 65 - 99 mg/dL 11/18/2024 8:22 AM [facility] Comment:Fasting: <100 mg/dL, Non-Fasting: <200 mg/dL (ADA 2004) Blood Urea Nitrogen (BUN) 45(H) 8 - 21 mg/dL 11/18/2024 8:22 AM [facility] Creatinine 1.8(H) 0.5 - 1.3 mg/dL 11/18/2024 8:22 AM [facility] eGFR 42(L) >59 11/18/2024 8:22 AM [facility] Comment:CKD-EPI (2020) in mL /min/1.73 sq meters. Sodium 129(L) 136 - 145 mmol/L 11/18/2024 8:22 AM [facility] Potassium 3.6 3.4 - 5.3 mmol/L 11/18/2024 8:22 AM [facility] Chloride 89(L) 98 - 107 mmol/L 11/18/2024 8:22 AM [facility] CO2 29 22 - 33 mmol/L 11/18/2024 8:22 AM [facility] Anion Gap 11 7 - 17 11/18/2024 8:22 AM [facility] Calcium 8.9 8.7 - 10.5 mg/dL 11/18/2024 8:22 AM [facility] BUN/Creatinine Ratio 25 10.0 - 25.0 Ratio 11/18/2024 8:22 AM [facility] Blood (Plasma/Serum) 11/18/2024 7:15 AM EST 11/18/2024 7:47 AM EST Corbin Lamb APRN LAB BLOOD ORDERABL ES Performing Organization Address City/[facility] Co de Phone Number [address] [address], [address] [address] * XR Chest 1 view (11/17/2024 5:48 [...] [facility] See Below * EXTRACTION LEAD(S) LASER FROM DUAL PM SYSTEM, INSERT/REPLACE LEADLESS PACEMAKER (11/17/2024 4:44 PMEST) Anatomical Region Laterality Modality Cardiac Electrop hysiology Narrative 12/03/2024 7:57 AM EST After informed consent patient was brought to the OR in the fasting state. He was positioned appropriate on the table. ??Timeout was then performed. ?? After timeout was completed and the plan reviewed he was then intubated by anesthesia. ??He was maintained under general anesthesia for the remainder of the procedure. ??Intraoperative TATIANNA was used to visualize cardiac structures. ??Radial A-line was placed for hemodynamic monitoring. ??He was then prepped and draped in sterile fashion from clavicle to mid thigh. ?? Using ultrasound-guided Seldinger technique right femoral venous access was obtained. ??A 12 [place] sheath was placed in the right femoral vein. ?? Through this an Amplatz stiff wire was advanced under fluoroscopic visualization to the right IJ. ??Using ultrasound-guided Seldinger technique left femoral venous access was obtained. ??8 [place] sheath was placed in left femoral vein. ??Through this a steerable quadripolar catheter was advanced under fluoroscopic visualization to the right ventricle and positioned in the right ventricle. ??Threshold testing was performed with excellent threshold. ??The output was set high. ??20 cc 1% lidocaine was then used to achieve anesthesia at the site of the pacemaker. ??An incision was made over the pacemaker generator and dissected down to the generator. ??Generator was mobilized and removed from the pocket. ??Portions of the capsule were dissected free. ??Leads were dissected free to the sewing rings. ??With the temporary wire in place both right atrial right ventricular leads were disconnected from the generator as the patient is pacer dependent. ??Sutures were cut on both sewing rings. The sewing rings were pulled back. ??Active-fixation mechanisms on both Medtronic 5076 active-fixation leads were retracted. ??Leads were cut. ??EZ interlocking stylette's were placed down both right atrial right ventricular leads and deployed. ??External silk sutures were used for additional support. ??We then began with a 14 Kenyan laser sheath. ??Under fluoroscopic visualization we started with the right ventricular lead. ?? 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 ??We were able to progress to the innominate area. ??Here we reached the innominate region and had significant fibrosis. ??We then remove the 14 Kenyan laser sheath and moved to the right atrial lead. ??Advancing over the right atrial lead under fluoroscopy we were able to laser in the subclavian region and make progress. ??Again we had the innominate. ??Here we used the laser gently as a dissecting tool and not in the laser mode. ??We able to make further advancement through this region. ??At this point with gentle countertraction the right atrial lead did come off the atrium. ??We are able to pull the lead out completely. ??We then went back to the right ventricular lead. ??We advanced an active laser mode to the innominate. ?? Here we again used the laser sheath as a mechanical dissector and were able to move through fibrosis in this region. ??Manual traction resulted in complete removal. Fluoroscopic and visual inspection confirmed complete removal. ??A UR 6 absorbable suture was placed around the access site. ?? Hemostasis was achieved. ??Pocket was copiously irrigated. ??The incision was closed in 2 layers. ??Initial layers of 3 oh V-Loc followed by a 4 oh V-Loc tendon subcuticular running mattress format. ??Steri-Strips applied to the incision. ??Island dressing applied to the wound. We then used the right femoral venous 12 Kenyan sheath and Amplatz wire which was in place. ??We used the Amplatz wire and performed sequential dilation at the access site. ??After completing this we advanced the micro sheath under fluoroscopy to the right atrium. ??Sheath was then cleared. ?? 3000 units of heparin given. ??The Micra delivery system was then prepped and advanced through the sheath into the right atrium. ??We then crossed into the right ventricle positioning on the septum. ??ADAME and FINNISH position confirmed our placement.We did an initial deployment here. ??Sensing of paced R wave was 12 mV. ??Device impedance was 520 ohms. ??Threshold was initially 1.5 V that decreased to 1.2 V. ??However remained at 1.2 V at 0.24 ms. ??We therefore retrieved the device back into the deploying sheath. ??We then moved the device slightly superior. ??ADAME and FINNISH position to confirm septal position. ??Initial testing here showed a threshold of 0.88 V at 0.24 ms. ??The lead impedance was 680 ohms. ??The sensed R wave paced was 17 mV. Tug test was performed under seen a year. ??We 3 spines move clearly. ??Retrieval suture was then cut and removed. ??There was no visible movement of the device. ??Post suture removal interrogation was performed. ??Lead impedance was 630 ohms. ??Threshold was 0.75 V at 0.24 ms. Sensing was excellent for ventricular paced QRS. ??We felt this was a good stable position. ??The tethering suture was removed and the delivery system was then removed. ??Again interrogation of the device showed excellent parameters. ??Z stitch was placed at the micra sheath insertion site. ?? Sheath was removed and the Z stitch tied off. ??Manual pressure was held for 15 minutes as well. ??The temporary pacing wire was removed under fluoroscopic visualization. ??Z stitch was placed around the 8 Kenyan sheath as well and the sheath was removed. ??Manual pressure was also used to achieve hemostasis. ??Intraoperative TATIANNA revealed no pericardial effusion. ??No significant tricuspid regurgitation was noted. ??The new AV Micra was tracking his atrium nicely. ??He was then extubated and transferred to recovery in good condition. Corbin Lamb APRN CV ELECTROPHYSIOLO GY ORDERABLES * (ABNORMAL) POCT Glucose, Fingerstick (11/17/2024 1:26 [...] O RDERABLES HOSPITAL LAB See Below * Phosphorus (AM) (11/17/2024 8:16 AM EST) Phosphorus 3.5 2.7 - 4.5 mg/dL 11/17/2024 9:01 AM EST [facility] Blood (Plasma/Serum) 11/17/2024 8:16 AM EST 11/17/2024 8:30 AM EST Maddison Villalpando MD LAB BLOOD ORDERABLES Performing Organization Address [facility] [place] [address], [place] [address] * Magnesium (AM) (11/17/2024 8:16 AM EST) Pathologist [facility] Magnesium 2.0 1.6 - 2.7 mg/dL 11/17/2024 9:01 AM EST [facility] Blood (Plasma/Serum) 11/17/2024 8:16 AM EST 11/17/2024 8:30 AM EST Maddison Villalpando MD LAB BLOOD ORDERABLES Performing Organization Address [facility] [place] [address], [place] [address] * (ABNORMAL) POCT Glucose, Fingerstick (11/17/2024 7:20 [...] 4.0 - 11.0 Thou/uL 11/17/2024 5:26 AM [facility] Platelet Count 373 150 - 450 Thou/uL 11/17/2024 5:26 AM [facility] Hemoglobin 8.2(L) 13.0 - 17.7 g/dL 11/17/2024 5:26 AM [facility] Hematocrit 25.0(L) 39.0 - 54.0 % 11/17/2024 5:26 AM [facility] Red Blood Cell Count 2.94(L) 4.50 - 6.20 Mil/uL 11/17/2024 5:26 AM [facility] MCV 85 80 - 100 fL 11/17/2024 5:26 AM [facility] MCH 27.9 27.0 - 31.0 pg 11/17/2024 5:26 AM [facility] MCHC 32.8 30.0 - 36.0 g/dL 11/17/2024 5:26 AM [facility] RDW 16.5(H) 11.5 - 14.5 % 11/17/2024 5:26 AM [facility] MPV 10.4 7.5 - 12.5 fL 11/17/2024 5:26 AM [facility] Blood Blood specimen / Unknown 11/17/2024 5:00 AM EST 11/17/2024 5:09 AM EST Adithya Sheriff PA-C [place] [address], [address] [place] [address] * (ABNORMAL) Comprehensive Metabolic Panel (AM) (11/17/2024 5:00 AM EST) Glucose 171(H) 65 - 99 mg/dL 11/17/2024 6:55 AM [facility] Comment:Fasting: <100 mg/dL, Non-Fasting: <200 mg/dL (ADA 2004) Blood Urea Nitrogen (BUN) 54(H) 8 - 21 mg/dL 11/17/2024 6:55 AM [facility] Creatinine 1.8(H) 0.5 - 1.3 mg/dL 11/17/2024 6:55 AM [facility] eGFR 42(L) >59 11/17/2024 6:55 AM [facility] Comment:CKD-EPI (2020) in mL /min/1.73 sq meters. Sodium 128(L) 136 - 145 mmol/L 11/17/2024 6:55 AM [facility] Potassium 3.7 3.4 - 5.3 mmol/L 11/17/2024 6:55 AM [facility] Chloride 87(L) 98 - 107 mmol/L 11/17/2024 6:55 AM [facility] CO2 30 22 - 33 mmol/L 11/17/2024 6:55 AM [facility] Calcium 9.4 8.7 - 10.5 mg/dL 11/17/2024 6:55 AM [facility] Alkaline Phosphatase 117 45 - 128 U/L 11/17/2024 6:55 AM [facility] Aspartate Aminotrans (AST) 24 10 - 55 U/L 11/17/2024 6:55 AM [facility] Alanine Aminotrans (ALT) 19 10 - 55 U/L 11/17/2024 6:55 AM [facility] Bilirubin, Total 0.2 0.2 - 1.0 mg/dL 11/17/2024 6:55 AM [facility] Protein, Total 6.6 6.3 - 8.3 g/dL 11/17/2024 6:55 AM [facility] Albumin 2.9(L) 3.4 - 4.8 g/dL 11/17/2024 6:55 AM [facility] BUN/Creatinine Ratio 30(H) 10.0 - 25.0 Ratio 11/17/2024 6:55 AM [facility] Globulin 3.7 1.5 - 3.9 g/dL 11/17/2024 6:55 AM [facility] Albumin/Globulin Ratio 0.8(L) 1.0 - 3.0 Ratio 11/17/2024 6:55 AM EST [facility] Anion Gap 11 7 - 17 11/17/2024 6:55 AM EST [facility] Blood (Plasma/Serum) 11/17/2024 5:00 AM EST 11/17/2024 5:09 AM EST Adithya Sheriff PA-C [place] [address], [place] [address] * (ABNORMAL) POCT Glucose, Fingerstick (11/16/2024 8:09 [...] CARE TEST O RDERABLES Performing Organization Address [facility] de Phone Number [facility] LAB See Below * (ABNORMAL) POCT Glucose, Fingerstick (11/16/2024 7:37 AM EST) POC Glucose 211(H) 65 - 99 mg/dL 11/16/2024 7:52 AM EST Blood specimen / Unknown 11/16/2024 7:37 AM EST 11/16/2024 7:52 AM EST Dallas Camejo MD POINT OF CARE TEST O RDERABLES Performing Organization Address [facility] Phone Number [facility] LAB See Below * Phosphorus (AM) (11/16/2024 7:23 AM EST) Phosphorus 3.8 2.7 - 4.5 mg/dL 11/16/2024 8:34 AM EST [facility] Blood (Plasma/Serum) 11/16/2024 7:23 AM EST 11/16/2024 7:51 AM EST Maddison Villalpando MD LAB BLOOD ORDERABLES Performing Organization Address [facility] de Phone Number [address] [address], [address] [address] * Magnesium (AM) (11/16/2024 7:23 AM EST) Magnesium 2.1 1.6 - 2.7 mg/dL 11/16/2024 8:34 AM EST [facility] Blood (Plasma/Serum) 11/16/2024 7:23 AM EST 11/16/2024 7:51 AM EST Maddison Villalpando MD LAB BLOOD ORDERABLES Performing Organization Address City/[facility]/ZIP Co de Phone Number [address] [address], [address] [address] * (ABNORMAL) Basic Metabolic Panel (AM) (11/16/2024 7:23 AM EST) Glucose 190(H) 65 - 99 mg/dL 11/16/2024 8:34 AM [facility] Comment:Fasting: <100 mg/dL, Non-Fasting: <200 mg/dL (ADA 2004) Blood Urea Nitrogen (BUN) 55(H) 8 - 21 mg/dL 11/16/2024 8:34 AM [facility] Creatinine 1.9(H) 0.5 - 1.3 mg/dL 11/16/2024 8:34 AM [facility] eGFR 39(L) >59 11/16/2024 8:34 AM [facility] Comment:CKD-EPI (2020) in mL /min/1.73 sq meters. Sodium 130(L) 136 - 145 mmol/L 11/16/2024 8:34 AM [facility] Potassium 3.6 3.4 - 5.3 mmol/L 11/16/2024 8:34 AM [facility] Chloride 87(L) 98 - 107 mmol/L 11/16/2024 8:34 AM [facility] CO2 32 22 - 33 mmol/L 11/16/2024 8:34 AM [facility] Anion Gap 11 7 - 17 11/16/2024 8:34 AM [facility] Calcium 9.1 8.7 - 10.5 mg/dL 11/16/2024 8:34 AM [facility] BUN/Creatinine Ratio 29(H) 10.0 - 25.0 Ratio 11/16/2024 8:34 AM [facility] Blood (Plasma/Serum) 11/16/2024 7:23 AM EST 11/16/2024 7:51 AM EST Maddison Villalpando MD LAB BLOOD ORDERABLES [place] [address] [place] [address], [address] [address] * (ABNORMAL) Complete Blood Count WITHOUT Differential - in AM (11/16/2024 7:23 AM EST) White Blood Cell Count 10.7 4.0 - 11.0 Thou/uL 11/16/2024 8:10 AM [facility] Platelet Count 408 150 - 450 Thou/uL 11/16/2024 8:10 AM [facility] Hemoglobin 8.1(L) 13.0 - 17.7 g/dL 11/16/2024 8:10 AM [facility] Hematocrit 25.6(L) 39.0 - 54.0 % 11/16/2024 8:10 AM [facility] Red Blood Cell Count 2.97(L) 4.50 - 6.20 Mil/uL 11/16/2024 8:10 AM [facility] MCV 86 80 - 100 fL 11/16/2024 8:10 AM [facility] MCH 27.3 27.0 - 31.0 pg 11/16/2024 8:10 AM [facility] MCHC 31.6 30.0 - 36.0 g/dL 11/16/2024 8:10 AM [facility] RDW 16.8(H) 11.5 - 14.5 % 11/16/2024 8:10 AM [facility] MPV 10.4 7.5 - 12.5 fL 11/16/2024 8:10 AM [facility] Blood Blood specimen / Unknown 11/16/2024 7:23 AM EST 11/16/2024 7:51 AM EST Maddison Villalpando MD LAB BLOOD ORDERABLES [address] [address], [address] [address] * Type and Screen (11/16/2024 7:23 AM EST) ABO/Rh A POSITIVE 11/16/2024 8:39 AM [facility] Antibody Screen NEGATIVE 11/16/2024 8:53 AM [facility] Specimen Expiration 11/19/2024 11/16/2024 8:39 AM [facility] Unit Number [id number] 11/16/2024 9:12 AM [facility] Blood Component Type LEUKOREDUCED RED CELLS 11/16/2024 9:12 AM [facility] Unit Division 00 11/16/2024 9:12 AM [facility] Unit Status REL FROM ALLOC 2:05 AM [facility] Transfusion Status OK TO TRANSFUSE 11/16/2024 9:12 AM [facility] Crossmatch Result Electronically Compatible 11/16/2024 9:12 AM [facility] Unit Number [id number] 11/16/2024 9:12 AM [facility] Blood Component Type LEUKOREDUCED RED CELLS 11/16/2024 9:12 AM [facility] Unit Division 00 11/16/2024 9:12 AM [facility] Unit Status REL FROM ALLOC 2:05 AM [facility] Transfusion Status OK TO TRANSFUSE 11/16/2024 9:12 AM [facility] Crossmatch Result Electronically Compatible 11/16/2024 9:12 AM [facility] Unit Number [id number] 11/16/2024 9:12 AM [facility] Blood Component Type LEUKOREDUCED RED CELLS 11/16/2024 9:12 AM [facility] Unit Division 00 11/16/2024 9:12 AM [facility] Unit Status REL FROM ALLOC 2:05 AM [facility] Transfusion Status OK TO TRANSFUSE 11/16/2024 9:12 AM [facility] Crossmatch Result Electronically Compatible 11/16/2024 9:12 AM [facility] Unit Number [id number] 11/16/2024 9:12 AM [facility] Blood Component Type LEUKOREDUCED RED CELLS 11/16/2024 9:12 AM [facility] Unit Division 00 11/16/2024 9:12 AM [facility] Unit Status REL FROM ALLOC 2:05 AM [facility] Transfusion Status OK TO TRANSFUSE 11/16/2024 9:12 AM [facility] Crossmatch Result Electronically Compatible 11/16/2024 9:12 AM EST [facility] Blood Blood specimen / Unknown 11/16/2024 7:23 AM EST 11/16/2024 7:57 AM EST Comment:Blood Cristina Fairchildlatanya JALLOH BLOOD BANK TEST OR DERABLES HOSPITAL LAB See Below [address] [address] * (ABNORMAL) POCT Glucose, Fingerstick (11/15/2024 8:14 [...] CARE TEST O RDERABLES Performing Organization Address City/[facility] de Phone Number HOSPITAL LAB See Below * Prepare RBC's:Prepare in: Units; Number of Units: 4; Transfusion Indications: Hemoglobin less than 7 gm/dl or HCT less than 21% (11/15/2024 10:54 AM EST) Units Ordered 4 11/15/2024 11:04 AM EST Serum specimen / Unknown 11/15/2024 10:54 AM EST 11/16/2024 9:11 AM EST Cristina Rodriguez APRN BLOOD BANK PRODUCT ORDERABLES Performing Organization Address [facility] de Phone Number HOSPITAL LAB See Below * Phosphorus (AM) (11/15/2024 8:08 AM EST) Phosphorus 4.3 2.7 - 4.5 mg/dL 11/15/2024 9:21 AM EST [facility] Blood (Plasma/Serum) 11/15/2024 8:08 AM EST 11/15/2024 8:57 AM EST Maddison Villalpando MD LAB BLOOD ORDERABLES Performing Organization Address [facility] [place] [address], [place] [address] * Magnesium (AM) (11/15/2024 8:08 AM EST) Magnesium 2.1 1.6 - 2.7 mg/dL 11/15/2024 9:21 AM EST [facility] Blood (Plasma/Serum) 11/15/2024 8:08 AM EST 11/15/2024 8:57 AM EST Maddison Villalpando MD LAB BLOOD ORDERABLES Performing Organization Address [facility]/[place] [address], [place] [address] * (ABNORMAL) Basic Metabolic Panel (AM) (11/15/2024 8:08 AM EST) Glucose 218(H) 65 - 99 mg/dL 11/15/2024 9:21 AM [facility] Comment:Fasting: <100 mg/dL, Non-Fasting: <200 mg/dL (ADA 2004) Blood Urea Nitrogen (BUN) 59(H) 8 - 21 mg/dL 11/15/2024 9:21 AM [facility] Creatinine 1.8(H) 0.5 - 1.3 mg/dL 11/15/2024 9:21 AM [facility] eGFR 42(L) >59 11/15/2024 9:21 AM [facility] Comment:CKD-EPI (2020) in mL /min/1.73 sq meters. Sodium 131(L) 136 - 145 mmol/L 11/15/2024 9:21 AM [facility] Potassium 3.9 3.4 - 5.3 mmol/L 11/15/2024 9:21 AM [facility] Chloride 85(L) 98 - 107 mmol/L 11/15/2024 9:21 AM [facility] CO2 34(H) 22 - 33 mmol/L 11/15/2024 9:21 AM [facility] Anion Gap 12 7 - 17 11/15/2024 9:21 AM [facility] Calcium 9.4 8.7 - 10.5 mg/dL 11/15/2024 9:21 AM [facility] BUN/Creatinine Ratio 33(H) 10.0 - 25.0 Ratio 11/15/2024 9:21 AM [facility] Blood (Plasma/Serum) 11/15/2024 8:08 AM EST 11/15/2024 8:57 AM EST Maddison Villalpando MD [place] [address], [address] [address] * (ABNORMAL) Complete Blood Count WITHOUT Differential - in AM (11/15/2024 8:08 AM EST) Pathologist [facility] White Blood Cell Count 11.8(H) 4.0 - 11.0 Thou/uL 11/15/2024 9:06 AM [facility] Platelet Count 485(H) 150 - 450 Thou/uL 11/15/2024 9:06 AM [facility] Hemoglobin 8.9(L) 13.0 - 17.7 g/dL 11/15/2024 9:06 AM [facility] Hematocrit 28.9(L) 39.0 - 54.0 % 11/15/2024 9:06 AM [facility] Red Blood Cell Count 3.27(L) 4.50 - 6.20 Mil/uL 11/15/2024 9:06 AM [facility] MCV 88 80 - 100 fL 11/15/2024 9:06 AM [facility] MCH 27.2 27.0 - 31.0 pg 11/15/2024 9:06 AM [facility] MCHC 30.8 30.0 - 36.0 g/dL 11/15/2024 9:06 AM [facility] RDW 16.8(H) 11.5 - 14.5 % 11/15/2024 9:06 AM [facility] MPV 10.4 7.5 - 12.5 fL 11/15/2024 9:06 AM [facility] Blood Blood specimen / Unknown 11/15/2024 8:08 AM EST 11/15/2024 8:57 AM EST Maddison Villalpando MD LAB BLOOD ORDERABLES Performing Organization Address City/State/[place] [address], [place] [address] * (ABNORMAL) proBNP, N-terminal (11/15/2024 8:08 AM EST) Pathologist [facility] proBNP, N-terminal 429(H) <125 pg/mL 11/15/2024 9:21 AM [facility] Blood Plasma specimen / Unknown 11/15/2024 8:08 AM EST 11/15/2024 8:57 AM EST Valencia Lau OUTLET MANAGER LAB BLOOD ORDERAB LES Performing Organization Address City/[facility]/ZIP Co de Phone Number [address] [address], [address] [address] * (ABNORMAL) POCT Glucose, Fingerstick (11/15/2024 7:36 AM EST) POC Glucose 230(H) 65 - 99 mg/dL 11/15/2024 7:54 AM EST Blood specimen / Unknown 11/15/2024 7:36 AM EST 11/15/2024 7:54 AM EST Dallas Camejo MD POINT OF CARE TEST O RDERALUCILLE Performing Organization Address [facility]/ZIP Co de Phone Number [facility] LAB See Below * (ABNORMAL) POCT Glucose, Fingerstick (11/14/2024 7:51 PM EST) POC Glucose 252(H) 65 - 99 mg/dL 11/14/2024 7:54 PM EST Blood specimen / Unknown 11/14/2024 7:51 PM EST 11/14/2024 7:54 PM EST Dallas Camejo MD POINT OF CARE TEST O RDERALUCILLE Performing Organization Address [facility]/ZIP Co de Phone Number [facility] LAB See Below * (ABNORMAL) POCT Glucose, Fingerstick (11/14/2024 4:10 PM EST) POC Glucose 237(H) 65 - 99 mg/dL 11/14/2024 4:15 PM EST Blood specimen / Unknown 11/14/2024 4:10 PM EST 11/14/2024 4:15 PM EST Dallas Camejo MD POINT OF CARE TEST O RDERALUCILLE [facility] LAB See Below * (ABNORMAL) POCT Glucose, [...] 4.0 - 11.0 Thou/uL 11/14/2024 11:21 AM [facility] Platelet Count 471(H) 150 - 450 Thou/uL 11/14/2024 11:21 AM [facility] Hemoglobin 8.9(L) 13.0 - 17.7 g/dL 11/14/2024 11:21 AM [facility] Hematocrit 28.9(L) 39.0 - 54.0 % 11/14/2024 11:21 AM [facility] Red Blood Cell Count 3.25(L) 4.50 - 6.20 Mil/uL 11/14/2024 11:21 AM [facility] MCV 89 80 - 100 fL 11/14/2024 11:21 AM [facility] MCH 27.4 27.0 - 31.0 pg 11/14/2024 11:21 AM [facility] MCHC 30.8 30.0 - 36.0 g/dL 11/14/2024 11:21 AM [facility] RDW 17.1(H) 11.5 - 14.5 % 11/14/2024 11:21 AM [facility] MPV 10.3 7.5 - 12.5 fL 11/14/2024 11:21 AM [facility] Blood Blood specimen / Unknown 11/14/2024 10:31 AM EST 11/14/2024 11:15 AM EST Maddison Villalpando MD [facility] BLOOD [facility]ABLES [address] [address] [place] [address] * (ABNORMAL) Phosphorus (Routine) (11/14/2024 10:31 AM EST) Phosphorus 6.1(H) 2.7 - 4.5 mg/dL 11/14/2024 11:39 AM [facility] Blood (Plasma/Serum) 11/14/2024 10:31 AM EST 11/14/2024 11:15 AM EST Maddison Villalpando MD [place] [address], [place] [address] * Magnesium (Routine) (11/14/2024 10:31 AM EST) Magnesium 2.1 1.6 - 2.7 mg/dL 11/14/2024 11:39 AM [facility] Blood (Plasma/Serum) 11/14/2024 10:31 AM EST 11/14/2024 11:15 AM EST Maddison Villalpando MD [place] [address], [place] [address] * (ABNORMAL) Basic Metabolic Panel (STAT) (11/14/2024 10:31 AM EST) Glucose 319(H) 65 - 99 mg/dL 11/14/2024 11:39 AM [facility] Comment:Fasting: <100 mg/dL, Non-Fasting: <200 mg/dL (ADA 2005) Blood Urea Nitrogen (BUN) 65(H) 8 - 21 mg/dL 11/14/2024 11:39 AM [facility] Creatinine 2.1(H) 0.5 - 1.3 mg/dL 11/14/2024 11:39 AM [facility] eGFR 35(L) >59 11/14/2024 11:39 AM [facility] Comment:CKD-EPI (2020) in mL /min/1.73 sq meters. Sodium 132(L) 136 - 145 mmol/L 11/14/2024 11:39 AM [facility] Potassium 4.0 3.4 - 5.3 mmol/L 11/14/2024 11:39 AM [facility] Chloride 85(L) 98 - 107 mmol/L 11/14/2024 11:39 AM [facility] CO2 34(H) 22 - 33 mmol/L 11/14/2024 11:39 AM [facility] Anion Gap 13 7 - 17 11/14/2024 11:39 AM [facility] Calcium 9.4 8.7 - 10.5 mg/dL 11/14/2024 11:39 AM [facility] BUN/Creatinine Ratio 31(H) 10.0 - 25.0 Ratio 11/14/2024 11:39 AM [facility] Blood (Plasma/Serum) 11/14/2024 10:31 AM EST 11/14/2024 11:15 AM EST Maddison Villalpando MD LAB BLOOD ORDERABLES Performing Organization Address City/[facility]/[place] [address], [place] [address] * (ABNORMAL) POCT Glucose, Fingerstick (11/14/2024 7:45 [...] CARE TEST O RDERABLES Performing Organization Address [facility] Phone Number [facility] LAB See Below * (ABNORMAL) POCT Glucose, Fingerstick (11/13/2024 9:19 PM EST) POC Glucose 366(H) 65 - 99 mg/dL 11/13/2024 9:20 PM EST Blood specimen / Unknown 11/13/2024 9:19 PM EST 11/13/2024 9:20 PM EST Dallas Camejo MD POINT OF CARE TEST O RDERALUCILLE Performing Organization Address [facility] LAB See Below * (ABNORMAL) POCT Glucose, Fingerstick (11/13/2024 4:45 PM EST) POC Glucose 196(H) 65 - 99 mg/dL 11/13/2024 4:50 PM EST Blood specimen / Unknown 11/13/2024 4:45 PM EST 11/13/2024 4:50 PM EST Dallas Camejo MD POINT OF CARE TEST O RDERABLES Performing Organization Address [facility] Phone Number [facility] LAB See Below * (ABNORMAL) POCT Glucose, Fingerstick (11/13/2024 11:54 AM EST) POC Glucose 232(H) 65 - 99 mg/dL 11/13/2024 11:55 AM EST Blood specimen / Unknown 11/13/2024 11:54 AM EST 11/13/2024 11:55 AM EST Dallas Camejo MD POINT OF CARE TEST O RDERABLES Performing Organization Address [facility] Phone Number [facility] LAB See Below * (ABNORMAL) POCT Glucose, Fingerstick (11/13/2024 8:12 AM EST) POC Glucose 159(H) 65 - 99 mg/dL 11/13/2024 8:15 AM EST Blood specimen / Unknown 11/13/2024 8:12 AM EST 11/13/2024 8:15 AM EST Dallas Camejo MD POINT OF CARE TEST O RDERABLES Performing Organization Address City/[facility] [employer] Phone Number HOSPITAL LAB See Below * (ABNORMAL) proBNP, N-terminal (11/13/2024 7:30 AM EST) proBNP, N-terminal 994(H) <125 pg/mL 11/13/2024 11:05 AM [address] [facility] Plasma specimen / Unknown 11/13/2024 7:30 AM EST 11/13/2024 8:09 AM EST Maddison Villalpando MD LAB BLOOD ORDERABLES Performing Organization Address [facility] [place] [address], [place] [address] * (ABNORMAL) Phosphorus (AM) (11/13/2024 7:30 AM EST) Phosphorus 4.9(H) 2.7 - 4.5 mg/dL 11/13/2024 8:45 AM EST [facility] Blood (Plasma/Serum) 11/13/2024 7:30 AM EST 11/13/2024 8:09 AM EST Maddison Villalpando MD LAB BLOOD ORDERABLES Performing Organization Address [facility] [facility] [place] [address], [place] [address] * Magnesium (AM) (11/13/2024 7:30 AM EST) Magnesium 1.7 1.6 - 2.7 mg/dL 11/13/2024 8:45 AM [facility] Blood (Plasma/Serum) 11/13/2024 7:30 AM EST 11/13/2024 8:09 AM EST Maddison Villalpando MD LAB BLOOD ORDERABLES Performing Organization Address [facility]/ZIP Co de Phone Number [address] [address], [address] [address] * (ABNORMAL) Complete Blood Count WITHOUT Differential - in AM (11/13/2024 7:30 AM EST) White Blood Cell Count 11.8(H) 4.0 - 11.0 Thou/uL 11/13/2024 8:28 AM [facility] Platelet Count 486(H) 150 - 450 Thou/uL 11/13/2024 8:28 AM [facility] Hemoglobin 9.2(L) 13.0 - 17.7 g/dL 11/13/2024 8:28 AM [facility] Hematocrit 29.8(L) 39.0 - 54.0 % 11/13/2024 8:28 AM [facility] Red Blood Cell Count 3.34(L) 4.50 - 6.20 Mil/uL 11/13/2024 8:28 AM [facility] MCV 89 80 - 100 fL 11/13/2024 8:28 AM [facility] MCH 27.5 27.0 - 31.0 pg 11/13/2024 8:28 AM [facility] MCHC 30.9 30.0 - 36.0 g/dL 11/13/2024 8:28 AM [facility] RDW 16.9(H) 11.5 - 14.5 % 11/13/2024 8:28 AM [facility] MPV 9.8 7.5 - 12.5 fL 11/13/2024 8:28 AM [facility] Blood Blood specimen / Unknown 11/13/2024 7:30 AM EST 11/13/2024 8:09 AM EST Maddison Villalpando MD [place] [address], [place] [address] * (ABNORMAL) Basic Metabolic Panel (AM) (11/13/2024 7:30 AM EST) Glucose 154(H) 65 - 99 mg/dL 11/13/2024 8:45 AM [facility] Comment:Fasting: <100 mg/dL, Non-Fasting: <200 mg/dL (ADA 2004) Blood Urea Nitrogen (BUN) 44(H) 8 - 21 mg/dL 11/13/2024 8:45 AM [facility] Creatinine 1.7(H) 0.5 - 1.3 mg/dL 11/13/2024 8:45 AM [facility] eGFR 45(L) >59 11/13/2024 8:45 AM [facility] Comment:CKD-EPI (2020) in mL /min/1.73 sq meters. Sodium 140 136 - 145 mmol/L 11/13/2024 8:45 AM [facility] Potassium 3.6 3.4 - 5.3 mmol/L 11/13/2024 8:45 AM [facility] Chloride 91(L) 98 - 107 mmol/L 11/13/2024 8:45 AM [facility] CO2 35(H) 22 - 33 mmol/L 11/13/2024 8:45 AM [facility] Anion Gap 14 7 - 17 11/13/2024 8:45 AM [facility] Calcium 9.7 8.7 - 10.5 mg/dL 11/13/2024 8:45 AM [facility] BUN/Creatinine Ratio 26(H) 10.0 - 25.0 Ratio 11/13/2024 8:45 AM [facility] Blood (Plasma/Serum) 11/13/2024 7:30 AM EST 11/13/2024 8:09 AM EST Maddison Villalpando MD [place] [address], [place] [address] * (ABNORMAL) POCT Glucose, Fingerstick (11/13/2024 3:59 AM EST) POC Glucose 156(H) 65 - 99 mg/dL 11/13/2024 4:03 AM EST Blood specimen / Unknown 11/13/2024 3:59 AM EST 11/13/2024 4:03 AM EST Dallas Camejo MD POINT OF CARE TEST O [place] [facility] LAB See Below * (ABNORMAL) POCT Glucose, Fingerstick (11/13/2024 12:27 AM EST) POC Glucose 139(H) 65 - 99 mg/dL 11/13/2024 12:31 AM EST Blood specimen / Unknown 11/13/2024 12:27 AM EST 11/13/2024 12:31 AM EST Dallas Camejo MD POINT OF CARE TEST O [place] Performing Organization Address City/[facility]/ZIP Co vt Phone Number [facility] LAB See Below * (ABNORMAL) POCT Glucose, [...] O RDERABLES HOSPITAL LAB See Below * MRI Brain [...] * PM DUAL LEAD EVAL WITH PROGRAMMING, [id number] (11/12/2024 1:15 PM EST) Date Time Interrogation Session [id number] [phone] PACEART Implantable Pulse Generator Vending Machine Assembler [employer] PACEART Implantable Pulse Generator Model [id number] Jaime HARP MRI PACEART Implantable Pulse Generator Serial Number [id number] PACEART Implantable Pulse Generator Type Pacemaker PACEART [...] reset 99.97 % PACEART Otf Statistic AP [place] Percent 76.74 % PACEART Otf Statistic [place] Percent 23.23 % PACEART Otf Statistic AP VS Percent 0.01 % PACEART Otf Statistic VS Percent 0.01 % PACEART AT/AF [place] Percent 0 % PACEART Episode Statistic Recent [...] CARE TEST O [place] Performing Organization Address City/State/[place] Co de Phone Number HOSPITAL LAB See Below * (ABNORMAL) POCT Glucose, Fingerstick (11/12/2024 8:01 AM EST) POC Glucose 140(H) 65 - 99 mg/dL 11/12/2024 8:18 AM EST Blood specimen / Unknown 11/12/2024 8:01 AM EST 11/12/2024 8:18 AM EST Dallas Camejo MD POINT OF CARE TEST [facility] LAB See Below * Phosphorus (11/12/2024 5:00 AM EST) Pathologist [facility] Phosphorus 4.5 2.7 - 4.5 mg/dL 11/12/2024 6:01 AM [facility] Blood (Plasma/Serum) 11/12/2024 5:00 AM EST 11/12/2024 5:22 AM EST Luis Degroot MD LAB BLOOD ORDERABLES Performing Organization Address City/[facility]/[place] [address], [place] [address] * Magnesium (11/12/2024 5:00 AM EST) Pathologist [facility] Magnesium 1.8 1.6 - 2.7 mg/dL 11/12/2024 6:01 AM [facility] Blood (Plasma/Serum) 11/12/2024 5:00 AM EST 11/12/2024 5:22 AM EST Luis Degroot MD LAB BLOOD ORDERABLES Performing Organization Address [facility]/[place] [address], [place] [address] * (ABNORMAL) Complete Blood Count, WITHOUT Differential (routine) (11/12/2024 5:00 AM EST) Pathologist [facility] White Blood Cell Count 11.1(H) 4.0 - 11.0 Thou/uL 11/12/2024 5:47 AM [facility] Platelet Count 456(H) 150 - 450 Thou/uL 11/12/2024 5:47 AM [facility] Hemoglobin 8.1(L) 13.0 - 17.7 g/dL 11/12/2024 5:47 AM [facility] Hematocrit 26.3(L) 39.0 - 54.0 % 11/12/2024 5:47 AM [facility] Red Blood Cell Count 2.94(L) 4.50 - 6.20 Mil/uL 11/12/2024 5:47 AM [facility] MCV 90 80 - 100 fL 11/12/2024 5:47 AM [facility] MCH 27.6 27.0 - 31.0 pg 11/12/2024 5:47 AM [facility] MCHC 30.8 30.0 - 36.0 g/dL 11/12/2024 5:47 AM [facility] RDW 16.9(H) 11.5 - 14.5 % 11/12/2024 5:47 AM [facility] MPV 9.8 7.5 - 12.5 fL 11/12/2024 5:47 AM [facility] Blood Blood specimen / Unknown 11/12/2024 5:00 AM EST 11/12/2024 5:22 AM EST Luis Degroot MD LAB BLOOD ORDERABLES Performing Organization Address City/State/[place] [address], [place] [address] * (ABNORMAL) Basic Metabolic Panel (11/12/2024 5:00 AM EST) Glucose 126(H) 65 - 99 mg/dL 11/12/2024 6:01 AM [facility] Comment:Fasting: <100 mg/dL, Non-Fasting: <200 mg/dL (ADA 2004) Blood Urea Nitrogen (BUN) 44(H) 8 - 21 mg/dL 11/12/2024 6:01 AM [facility] Creatinine 1.6(H) 0.5 - 1.3 mg/dL 11/12/2024 6:01 AM [facility] eGFR 48(L) >59 11/12/2024 6:01 AM [facility] Comment:CKD-EPI (2020) in mL /min/1.73 sq meters. Sodium 138 136 - 145 mmol/L 11/12/2024 6:01 AM [facility] Potassium 3.7 3.4 - 5.3 mmol/L 11/12/2024 6:01 AM [facility] Chloride 96(L) 98 - 107 mmol/L 11/12/2024 6:01 AM [facility] CO2 30 22 - 33 mmol/L 11/12/2024 6:01 AM [facility] Anion Gap 12 7 - 17 11/12/2024 6:01 AM [facility] Calcium 9.1 8.7 - 10.5 mg/dL 11/12/2024 6:01 AM [facility] BUN/Creatinine Ratio 28(H) 10.0 - 25.0 Ratio 11/12/2024 6:01 AM [facility] Blood (Plasma/Serum) 11/12/2024 5:00 AM EST 11/12/2024 5:22 AM EST Luis Degroot MD [place] [address], [place] [address] * (ABNORMAL) POCT Glucose, Fingerstick (11/12/2024 4:51 [...] CARE TEST O JOSEPH Performing Organization Address [facility] LAB See Below * (ABNORMAL) POCT Glucose, Fingerstick (11/11/2024 9:17 PM EST) POC Glucose 224(H) 65 - 99 mg/dL 11/11/2024 9:21 PM EST Blood specimen / Unknown 11/11/2024 9:17 PM EST 11/11/2024 9:21 PM EST Dallas Camejo MD POINT OF CARE TEST O JOSEPH Performing Organization Address [facility] LAB See Below * (ABNORMAL) POCT Glucose, Fingerstick (11/11/2024 5:06 PM EST) POC Glucose 149(H) 65 - 99 mg/dL 11/11/2024 5:37 PM EST Blood specimen / Unknown 11/11/2024 5:06 PM EST 11/11/2024 5:37 PM EST Dallas Camejo MD POINT OF CARE TEST Kandis RUIZ Performing Organization Address [facility] LAB See Below * PM DUAL LEAD EVAL WITH PROGRAMMING, [id number] (11/11/2024 4:33 PM EST) Date Time Interrogation Session [id number] [phone] PACEART Implantable Pulse Generator Vending Machine Assembler [employer] PACEART Implantable Pulse Generator Model [id number] Jaime ESCOBAR PACEART Implantable Pulse Generator Serial Number [id number] PACEART Implantable Pulse Generator Type Pacemaker PACEART [...] reset 89.06 % PACEART Otf Statistic AP [place] Percent 62.37 % PACEART Otf Statistic [place] Percent 26.83 % PACEART Otf Statistic AP VS Percent 8.97 % PACEART Otf Statistic VS Percent 1.83 % PACEART AT/AF [place] Percent 0 % PACEART Episode Statistic Recent [...] ordered for function. Presenting rhythm: AP / [place] @ 60 bpm. Underlying rhythm: SB @ 58. Atrial pacing 71.2%, ventricular pacing 89%. Battery and lead parameters evaluated and within normal limits. Normal pacemaker function. Sam Cuadro RN Nani Hollis PA-C [facility] [...] inserted atraumatically into the esophagus by the senior datastage developer. With the patient in a supine position [...] PM EST 11/11/2024 2:19 PM EST Nani PATTON-Annemarie LAB BLOOD ORDERABLES Performing Organization Address City/[facility]/[place] [address], [place] [address] * Magnesium (11/11/2024 2:00 PM EST) Magnesium 1.8 1.6 - 2.7 mg/dL 11/11/2024 3:00 PM [facility] Blood (Plasma/Serum) 11/11/2024 2:00 PM EST 11/11/2024 2:19 PM EST Nani PATTON-Annemarie LAB BLOOD ORDERABLES Performing Organization Address [facility]/[place] [address], [place] [address] * (ABNORMAL) Basic Metabolic Panel (11/11/2024 2:00 PM EST) Glucose 124(H) 65 - 99 mg/dL 11/11/2024 3:00 PM [facility] Comment:Fasting: <100 mg/dL, Non-Fasting: <200 mg/dL (ADA 2004) Blood Urea Nitrogen (BUN) 49(H) 8 - 21 mg/dL 11/11/2024 3:00 PM [facility] Creatinine 1.7(H) 0.5 - 1.3 mg/dL 11/11/2024 3:00 PM [facility] eGFR 45(L) >59 11/11/2024 3:00 PM [facility] Comment:CKD-EPI (2020) in mL /min/1.73 sq meters. Sodium 139 136 - 145 mmol/L 11/11/2024 3:00 PM [facility] Potassium 3.4 3.4 - 5.3 mmol/L 11/11/2024 3:00 PM [facility] Chloride 97(L) 98 - 107 mmol/L 11/11/2024 3:00 PM EST [facility] CO2 30 22 - 33 mmol/L 11/11/2024 3:00 PM EST [facility] Anion Gap 12 7 - 17 11/11/2024 3:00 PM [facility] Calcium 9.0 8.7 - 10.5 mg/dL 11/11/2024 3:00 PM [facility] BUN/Creatinine Ratio 29(H) 10.0 - 25.0 Ratio 11/11/2024 3:00 PM EST [facility] Blood (Plasma/Serum) 11/11/2024 2:00 PM EST 11/11/2024 2:19 PM EST Nani Hollis PA-C [place] [address], [place] [address] * (ABNORMAL) POCT Glucose, Fingerstick (11/11/2024 11:53 [...] POCT Glucose, Fingerstick (11/11/2024 2:35 AM EST) [facility] POC Glucose 174(H) 65 - 99 mg/dL 11/11/2024 3:47 AM EST Blood specimen / Unknown 11/11/2024 2:35 AM EST 11/11/2024 3:46 AM EST Dallas Camejo MD POINT OF CARE TEST [facility] LAB See Below * (ABNORMAL) proBNP, N-terminal (11/11/2024 2:00 AM EST) [facility] proBNP, N-terminal 2,964(H) <125 pg/mL 11/11/2024 3:18 AM EST [facility] Blood Plasma specimen / Unknown 11/11/2024 2:00 AM EST 11/11/2024 2:53 AM EST Nani Hollis PA-C [place] [address], [place] [address] * (ABNORMAL) Complete Blood Count, WITHOUT Differential (routine) (11/11/2024 2:00 AM EST) [facility] White Blood Cell Count 13.2(H) 4.0 - 11.0 Thou/uL 11/11/2024 2:57 AM [facility] Platelet Count 460(H) 150 - 450 Thou/uL 11/11/2024 2:57 AM [facility] Hemoglobin 8.2(L) 13.0 - 17.7 g/dL 11/11/2024 2:57 AM [facility] Hematocrit 26.1(L) 39.0 - 54.0 % 11/11/2024 2:57 AM [facility] Red Blood Cell Count 2.91(L) 4.50 - 6.20 Mil/uL 11/11/2024 2:57 AM [facility] MCV 90 80 - 100 fL 11/11/2024 2:57 AM [facility] MCH 28.2 27.0 - 31.0 pg 11/11/2024 2:57 AM [facility] MCHC 31.4 30.0 - 36.0 g/dL 11/11/2024 2:57 AM [facility] RDW 17.0(H) 11.5 - 14.5 % 11/11/2024 2:57 AM [facility] MPV 9.8 7.5 - 12.5 fL 11/11/2024 2:57 AM [facility] Blood Blood specimen / Unknown 11/11/2024 2:00 AM EST 11/11/2024 2:53 AM EST Nani Hollis PA-C LAB BLOOD ORDERABLES Performing Organization Address City/[facility]/[place] [address], [place] [address] * (ABNORMAL) Phosphorus (11/11/2024 2:00 AM EST) Phosphorus 4.7(H) 2.7 - 4.5 mg/dL 11/11/2024 3:18 AM [facility] Blood (Plasma/Serum) 11/11/2024 2:00 AM EST 11/11/2024 2:53 AM EST Nani Hollis PA-C LAB BLOOD ORDERABLES Performing Organization Address City/[facility]/[place] [address], [place] [address] * Magnesium (11/11/2024 2:00 AM EST) Magnesium 2.0 1.6 - 2.7 mg/dL 11/11/2024 3:18 AM [facility] Blood (Plasma/Serum) 11/11/2024 2:00 AM EST 11/11/2024 2:53 AM EST Nani Hollis PA-C LAB BLOOD ORDERABLES [address] [address], [place] [address] * (ABNORMAL) Basic Metabolic Panel (11/11/2024 2:00 AM EST) Glucose 151(H) 65 - 99 mg/dL 11/11/2024 3:18 AM [facility] Comment:Fasting: <100 mg/dL, Non-Fasting: <200 mg/dL (ADA 2004) Blood Urea Nitrogen (BUN) 56(H) 8 - 21 mg/dL 11/11/2024 3:18 AM [facility] Creatinine 2.0(H) 0.5 - 1.3 mg/dL 11/11/2024 3:18 AM [facility] eGFR 37(L) >59 11/11/2024 3:18 AM [facility] Comment:CKD-EPI (2020) in mL /min/1.73 sq meters. Sodium 137 136 - 145 mmol/L 11/11/2024 3:18 AM [facility] Potassium 3.8 3.4 - 5.3 mmol/L 11/11/2024 3:18 AM [facility] Chloride 99 98 - 107 mmol/L 11/11/2024 3:18 AM [facility] CO2 27 22 - 33 mmol/L 11/11/2024 3:18 AM [facility] Anion Gap 11 7 - 17 11/11/2024 3:18 AM [facility] Calcium 8.7 8.7 - 10.5 mg/dL 11/11/2024 3:18 AM [facility] BUN/Creatinine Ratio 28(H) 10.0 - 25.0 Ratio 11/11/2024 3:18 AM [facility] Blood (Plasma/Serum) 11/11/2024 2:00 AM EST 11/11/2024 2:53 AM EST Nani Hollis PA-C LAB BLOOD ORDERABLES [address] [address], [place] [address] * (ABNORMAL) Hepatic Function Panel (Routine) (11/11/2024 2:00 AM EST) Alkaline Phosphatase 207(H) 45 - 128 U/L 11/11/2024 3:18 AM [facility] Aspartate Aminotrans (AST) 24 10 - 55 U/L 11/11/2024 3:18 AM [facility] Alanine Aminotrans (ALT) 14 10 - 55 U/L 11/11/2024 3:18 AM [facility] Bilirubin, Total 0.2 0.2 - 1.0 mg/dL 11/11/2024 3:18 AM [facility] Protein, Total 6.4 6.3 - 8.3 g/dL 11/11/2024 3:18 AM [facility] Albumin 2.6(L) 3.4 - 4.8 g/dL 11/11/2024 3:18 AM [facility] Bilirubin, Direct 0.1 0 - 0.2 mg/dL 11/11/2024 3:18 AM [facility] Globulin 3.8 1.5 - 3.9 g/dL 11/11/2024 3:18 AM [facility] Albumin/Globulin Ratio 0.7(L) 1.0 - 3.0 Ratio 11/11/2024 3:18 AM [facility] Blood (Plasma/Serum) 11/11/2024 2:00 AM EST 11/11/2024 2:53 AM EST Nani Hollis PA-C LAB BLOOD ORDERABLES Performing Organization Address City/State/[place] [address], [place] [address] * Creatine Kinase (CK) (11/11/2024 2:00 AM EST) Creatine Kinase (CK) 37 24 - 204 U/L 11/11/2024 3:18 AM [facility] Blood (Plasma/Serum) 11/11/2024 2:00 AM EST 11/11/2024 2:53 AM EST Nani Hollis PA-C LAB BLOOD ORDERABLES [address] [address], [address] [address] * (ABNORMAL) POCT Glucose, Fingerstick (11/10/2024 7:55 PM EST) POC Glucose 229(H) 65 - 99 mg/dL 11/10/2024 7:56 PM EST Blood specimen / Unknown 11/10/2024 7:55 PM EST 11/10/2024 7:56 PM EST Dallas Camejo MD POINT OF CARE TEST O RDERABLES Performing Organization Address City/[facility]/ZIP Co de Phone Number HOSPITAL LAB [...] CARE TEST O RDERABLES Performing Organization Address City/[facility]/ZIP Co de Phone Number HOSPITAL LAB See Below * (ABNORMAL) Phosphorus (11/10/2024 12:03 PM EST) Phosphorus 5.2(H) 2.7 - 4.5 mg/dL 11/10/2024 1:[address] [facility] Blood (Plasma/Serum) 11/10/2024 12:03 PM EST 11/10/2024 12:27 PM EST Nani Hollis PA-C LAB BLOOD ORDERABLES Performing Organization Address [facility]/[place] [address], [place] [address] * Magnesium (11/10/2024 12:03 PM EST) Magnesium 2.0 1.6 - 2.7 mg/dL 11/10/2024 1:06 PM [facility] Blood (Plasma/Serum) 11/10/2024 12:03 PM EST 11/10/2024 12:27 PM EST Nani Hollis PA-C LAB BLOOD ORDERABLES Performing Organization Address [facility]/[place] [address], [place] [address] * (ABNORMAL) Basic Metabolic Panel (11/10/2024 12:03 PM EST) Glucose 135(H) 65 - 99 mg/dL 11/10/2024 1:06 PM EST [facility] Comment:Fasting: <100 mg/dL, Non-Fasting: <200 mg/dL (ADA 2005) Blood Urea Nitrogen (BUN) 57(H) 8 - 21 mg/dL 11/10/2024 1:06 PM [facility] Creatinine 1.9(H) 0.5 - 1.3 mg/dL 11/10/2024 1:06 PM [facility] eGFR 39(L) >59 11/10/2024 1:06 PM [facility] Comment:CKD-EPI (2020) in mL /min/1.73 sq meters. Sodium 137 136 - 145 mmol/L 11/10/2024 1:06 PM [facility] Potassium 3.8 3.4 - 5.3 mmol/L 11/10/2024 1:06 PM [facility] Chloride 101 98 - 107 mmol/L 11/10/2024 1:06 PM [facility] CO2 25 22 - 33 mmol/L 11/10/2024 1:06 PM [facility] Anion Gap 11 7 - 17 11/10/2024 1:06 PM [facility] Calcium 8.5(L) 8.7 - 10.5 mg/dL 11/10/2024 1:06 PM [facility] BUN/Creatinine Ratio 30(H) 10.0 - 25.0 Ratio 11/10/2024 1:06 PM [facility] Blood (Plasma/Serum) 11/10/2024 12:03 PM EST 11/10/2024 12:27 PM EST Nani Hollis PA-C LAB BLOOD ORDERABLES Performing Organization Address City/[facility]/[place] [address], [place] [address] * (ABNORMAL) POCT Glucose, Fingerstick (11/10/2024 11:36 [...] MD POINT OF CARE TEST O RDERABLES [facility] LAB See Below * (ABNORMAL) Phosphorus (11/10/2024 12:04 AM EST) Phosphorus 5.6(H) 2.7 - 4.5 mg/dL 11/10/2024 1:09 AM EST [facility] Blood (Plasma/Serum) 11/10/2024 12:04 AM EST 11/10/2024 12:33 AM EST Claire Garibay PA-C LAB BLOOD ORDERABLES [address] [address], [address] [address] * Magnesium (11/10/2024 12:04 AM EST) Magnesium 2.1 1.6 - 2.7 mg/dL 11/10/2024 1:09 AM EST [facility] Blood (Plasma/Serum) 11/10/2024 12:04 AM EST 11/10/2024 12:33 AM EST Claire Garibay PA-C LAB BLOOD ORDERABLES [facility] [address] [place] [address], [facility] [address] [place] [address] * (ABNORMAL) Basic Metabolic Panel (11/10/2024 12:04 AM EST) Glucose 122(H) 65 - 99 mg/dL 11/10/2024 1:09 AM [facility] Comment:Fasting: <100 mg/dL, Non-Fasting: <200 mg/dL (ADA 2004) Blood Urea Nitrogen (BUN) 56(H) 8 - 21 mg/dL 11/10/2024 1:09 AM [facility] Creatinine 2.0(H) 0.5 - 1.3 mg/dL 11/10/2024 1:09 AM [facility] eGFR 37(L) >59 11/10/2024 1:09 AM [facility] Comment:CKD-EPI (2020) in mL /min/1.73 sq meters. Sodium 135(L) 136 - 145 mmol/L 11/10/2024 1:09 AM [facility] Potassium 3.8 3.4 - 5.3 mmol/L 11/10/2024 1:09 AM [facility] Chloride 100 98 - 107 mmol/L 11/10/2024 1:09 AM [facility] CO2 24 22 - 33 mmol/L 11/10/2024 1:09 AM [facility] Anion Gap 11 7 - 17 11/10/2024 1:09 AM [facility] Calcium 8.2(L) 8.7 - 10.5 mg/dL 11/10/2024 1:09 AM [facility] BUN/Creatinine Ratio 28(H) 10.0 - 25.0 Ratio 11/10/2024 1:09 AM [facility] Blood (Plasma/Serum) 11/10/2024 12:04 AM EST 11/10/2024 12:33 AM EST Claire Garibay PA-C LAB BLOOD ORDERABLES [address] [address], [place] [address] * (ABNORMAL) COMPLETE BLOOD COUNT, WITHOUT DIFFERENTIAL (11/10/2024 12:04 AM EST) White Blood Cell Count 13.5(H) 4.0 - 11.0 Thou/uL 11/10/2024 12:47 AM [facility] Platelet Count 445 150 - 450 Thou/uL 11/10/2024 12:47 AM [facility] Hemoglobin 7.6(L) 13.0 - 17.7 g/dL 11/10/2024 12:47 AM [facility] Hematocrit 25.2(L) 39.0 - 54.0 % 11/10/2024 12:47 AM [facility] Red Blood Cell Count 2.75(L) 4.50 - 6.20 Mil/uL 11/10/2024 12:47 AM [facility] MCV 92 80 - 100 fL 11/10/2024 12:47 AM [facility] MCH 27.6 27.0 - 31.0 pg 11/10/2024 12:47 AM [facility] MCHC 30.2 30.0 - 36.0 g/dL 11/10/2024 12:47 AM [facility] RDW 17.2(H) 11.5 - 14.5 % 11/10/2024 12:47 AM [facility] MPV 9.7 7.5 - 12.5 fL 11/10/2024 12:47 AM [facility] Blood Blood specimen / Unknown 11/10/2024 12:04 AM EST 11/10/2024 12:33 AM EST Claire Garibay PA-C LAB BLOOD ORDERABLES [address] [address], [address] [address] * (ABNORMAL) POCT Glucose, Fingerstick (11/09/2024 8:03 PM EST) POC Glucose 152(H) 65 - 99 mg/dL 11/09/2024 8:04 PM EST Blood specimen / Unknown 11/09/2024 8:03 PM EST 11/09/2024 8:04 PM EST Dallas Camejo MD POINT OF CARE TEST O JOSEPH Performing Organization Address [facility] Number [facility] LAB See Below * (ABNORMAL) POCT Glucose, Fingerstick (11/09/2024 3:53 PM EST) POC Glucose 222(H) 65 - 99 mg/dL 11/09/2024 8:04 PM EST Blood specimen / Unknown 11/09/2024 3:53 PM EST 11/09/2024 8:04 PM EST Dallas Camejo MD POINT OF CARE TEST O JOSEPH Performing Organization Address [facility] Phone Number [facility] LAB See Below * (ABNORMAL) POCT Glucose, Fingerstick (11/09/2024 11:47 AM EST) POC Glucose 146(H) 65 - 99 mg/dL 11/09/2024 11:53 AM EST Blood specimen / Unknown 11/09/2024 11:47 AM EST 11/09/2024 11:53 AM EST Dallas Camejo MD POINT OF CARE TEST O JOSEPH Performing Organization Address [facility] Phone Number [facility] LAB See Below * (ABNORMAL) proBNP, N-terminal (11/09/2024 10:04 AM EST) proBNP, N-terminal 4,654(H) <125 pg/mL 11/09/2024 12:58 PM [address] [facility] Plasma specimen / Unknown 11/09/2024 10:04 AM EST 11/09/2024 10:25 AM EST Claire Garibay PA-C LAB BLOOD ORDERABLES [facility] [address] [facility] [place] [address], [facility] [address] [place] [address] * (ABNORMAL) Procalcitonin (11/09/2024 10:04 AM EST) [...] 10:04 AM EST 11/09/2024 10:25 AM EST Cliare Garibay PA-C LAB BLOOD ORDERABLES Performing Organization Address [facility] [place] [address], [place] [address] * (ABNORMAL) POCT Glucose, Fingerstick (11/09/2024 7:29 AM EST) POC Glucose 153(H) 65 - 99 mg/dL 11/09/2024 7:33 AM EST Blood specimen / Unknown 11/09/2024 7:29 AM EST 11/09/2024 7:33 AM EST Dallas Camejo MD POINT OF CARE TEST O RDERABLES Performing Organization Address [facility] de Phone Number HOSPITAL LAB See Below * (ABNORMAL) Phosphorus (11/09/2024 1:50 AM EST) Phosphorus 5.2(H) 2.7 - 4.5 mg/dL 11/09/2024 2:56 AM EST [facility] Blood (Plasma/Serum) 11/09/2024 1:50 AM EST 11/09/2024 2:31 AM EST Shay Martin MD LAB BLOOD ORDERAB LES Performing Organization Address City/[facility]/[place] [address], [place] [address] * Magnesium (11/09/2024 1:50 AM EST) Pathologist [facility] Magnesium 2.3 1.6 - 2.7 mg/dL 11/09/2024 2:56 AM [facility] Blood (Plasma/Serum) 11/09/2024 1:50 AM EST 11/09/2024 2:31 AM EST Shay Martin MD LAB BLOOD ORDERAB LES Performing Organization Address [facility]/[place] [address], [place] [address] * (ABNORMAL) COMPLETE BLOOD COUNT, WITHOUT DIFFERENTIAL (11/09/2024 1:50 AM EST) [facility] White Blood Cell Count 11.9(H) 4.0 - 11.0 Thou/uL 11/09/2024 2:36 AM [facility] Platelet Count 405 150 - 450 Thou/uL 11/09/2024 2:36 AM [facility] Hemoglobin 7.7(L) 13.0 - 17.7 g/dL 11/09/2024 2:36 AM [facility] Hematocrit 24.9(L) 39.0 - 54.0 % 11/09/2024 2:36 AM [facility] Red Blood Cell Count 2.72(L) 4.50 - 6.20 Mil/uL 11/09/2024 2:36 AM [facility] MCV 92 80 - 100 fL 11/09/2024 2:36 AM [facility] MCH 28.3 27.0 - 31.0 pg 11/09/2024 2:36 AM [facility] MCHC 30.9 30.0 - 36.0 g/dL 11/09/2024 2:36 AM [facility] RDW 17.1(H) 11.5 - 14.5 % 11/09/2024 2:36 AM [facility] MPV 9.6 7.5 - 12.5 fL 11/09/2024 2:36 AM [facility] Blood Blood specimen / Unknown 11/09/2024 1:50 AM EST 11/09/2024 2:31 AM EST Shay Martin MD [place] [address], [address] [address] * (ABNORMAL) Basic Metabolic Panel (11/09/2024 1:50 AM EST) Glucose 117(H) 65 - 99 mg/dL 11/09/2024 2:56 AM [facility] Comment:Fasting: <100 mg/dL, Non-Fasting: <200 mg/dL (ADA 2004) Blood Urea Nitrogen (BUN) 46(H) 8 - 21 mg/dL 11/09/2024 2:56 AM [facility] Creatinine 1.8(H) 0.5 - 1.3 mg/dL 11/09/2024 2:56 AM [facility] eGFR 42(L) >59 11/09/2024 2:56 AM [facility] Comment:CKD-EPI (2020) in mL /min/1.73 sq meters. Sodium 139 136 - 145 mmol/L 11/09/2024 2:56 AM [facility] Potassium 3.6 3.4 - 5.3 mmol/L 11/09/2024 2:56 AM [facility] Chloride 101 98 - 107 mmol/L 11/09/2024 2:56 AM [facility] CO2 25 22 - 33 mmol/L 11/09/2024 2:56 AM [facility] Anion Gap 13 7 - 17 11/09/2024 2:56 AM [facility] Calcium 8.2(L) 8.7 - 10.5 mg/dL 11/09/2024 2:56 AM [facility] BUN/Creatinine Ratio 26(H) 10.0 - 25.0 Ratio 11/09/2024 2:56 AM [facility] Blood (Plasma/Serum) 11/09/2024 1:50 AM EST 11/09/2024 2:31 AM EST Shay Martin MD LAB BLOOD ORDERAB LES Performing Organization Address City/[facility]/[place] [address], [place] [address] * (ABNORMAL) POCT Glucose, Fingerstick (11/09/2024 1:41 AM EST) POC Glucose 124(H) 65 - 99 mg/dL 11/09/2024 1:42 AM EST Blood specimen / Unknown 11/09/2024 1:41 AM EST 11/09/2024 1:42 AM EST Dallas Camejo MD POINT OF CARE TEST O [place] Performing Organization Address [facility] Co de Phone Number [facility] LAB See Below * (ABNORMAL) POCT Glucose, Fingerstick (11/08/2024 8:45 PM EST) POC Glucose 164(H) 65 - 99 mg/dL 11/08/2024 8:49 PM EST Blood specimen / Unknown 11/08/2024 8:45 PM EST 11/08/2024 8:49 PM EST Dallas Camejo MD POINT OF CARE TEST O [place] [facility] LAB See Below * (ABNORMAL) POCT Glucose, Fingerstick (11/08/2024 7:58 PM EST) POC Glucose 212(H) 65 - 99 mg/dL 11/08/2024 8:49 PM EST Blood specimen / Unknown 11/08/2024 7:58 PM EST 11/08/2024 8:49 PM EST Dallas Camejo MD POINT OF CARE TEST [place] [facility] LAB See Below * INSJ NON-TUNNELED CENTRAL [...] to verify the correct patient, procedure, equipment, field support technician and site/side marked as required. Indications: vascular [...] 7.35 7.33 - 7.43 11/08/2024 6:00 PM [facility] Venous pCO2 49 35 - 50 mmHG 11/08/2024 6:00 PM [facility] Venous pO2 45 0 - 60 mmHG 11/08/2024 6:00 PM [facility] Venous Total CO2 28 23 - 29 mmol/L 11/08/2024 6:00 PM [facility] Respiratory Info NASAL 6 L/MIN 11/08/2024 5:29 PM EST Base Excess 0.9 mmol/L 11/08/2024 6:00 PM [facility] Comment:Reference Range: Neg ative 2 to Positive 3 Blood Blood specimen / Unknown 11/08/2024 5:46 PM EST 11/08/2024 5:55 PM EST Eunice Garrison OUTLET MANAGER LAB BLOOD ORDERA BLES Performing Organization Address City/[facility]/[place] [address], [place] [address] * (ABNORMAL) Phosphorus (Routine) (11/08/2024 5:46 PM EST) Phosphorus 4.9(H) 2.7 - 4.5 mg/dL 11/08/2024 7:23 PM [facility] Blood (Plasma/Serum) 11/08/2024 5:46 PM EST 11/08/2024 6:51 PM EST Eunice Garrison APRN [place] [address], [place] [address] * Magnesium (Routine) (11/08/2024 5:46 PM EST) Magnesium 1.9 1.6 - 2.7 mg/dL 11/08/2024 7:23 PM [facility] Blood (Plasma/Serum) 11/08/2024 5:46 PM EST 11/08/2024 6:51 PM EST Eunice Garrison APRN LAB BLOOD ORDERA BLES [address] [address], [address] [address] * (ABNORMAL) Basic Metabolic Panel (Routine) (11/08/2024 5:46 PM EST) Glucose 134(H) 65 - 99 mg/dL 11/08/2024 7:23 PM [facility] Comment:Fasting: <100 mg/dL, Non-Fasting: <200 mg/dL (ADA 2004) Blood Urea Nitrogen (BUN) 45(H) 8 - 21 mg/dL 11/08/2024 7:23 PM [facility] Creatinine 1.7(H) 0.5 - 1.3 mg/dL 11/08/2024 7:23 PM [facility] eGFR 45(L) >59 11/08/2024 7:23 PM [facility] Comment:CKD-EPI (2020) in mL /min/1.73 sq meters. Sodium 141 136 - 145 mmol/L 11/08/2024 7:23 PM [facility] Potassium 3.3(L) 3.4 - 5.3 mmol/L 11/08/2024 7:23 PM [facility] Chloride 102 98 - 107 mmol/L 11/08/2024 7:23 PM [facility] CO2 26 22 - 33 mmol/L 11/08/2024 7:23 PM [facility] Anion Gap 13 7 - 17 11/08/2024 7:23 PM [facility] Calcium 8.6(L) 8.7 - 10.5 mg/dL 11/08/2024 7:23 PM [facility] BUN/Creatinine Ratio 26(H) 10.0 - 25.0 Ratio 11/08/2024 7:23 PM [facility] Blood (Plasma/Serum) 11/08/2024 5:46 PM EST 11/08/2024 6:51 PM EST Eunice Garrison APRN LAB BLOOD ORDERA BLES [facility] [address] [facility] [place] [address], [facility] [address] [place] [address] * XR Chest 1 view-Portable (STAT) (11/08/2024 [...] prior study. Interpreted by: ??Bashir Barrientos MD Bench Boring Machine Operator I personally reviewed the images and [...] prior study. Interpreted by: Bashir Barrientos MD Bench Boring Machine Operator I personally reviewed the images and [...] CARE TEST O RDGHANSHYAM Performing Organization Address [facility] Co de Phone Number HOSPITAL LAB See Below * (ABNORMAL) POCT Glucose, Fingerstick (11/08/2024 11:28 AM EST) POC Glucose 162(H) 65 - 99 mg/dL 11/08/2024 11:29 AM EST Blood specimen / Unknown 11/08/2024 11:28 AM EST 11/08/2024 11:29 AM EST Dallas Camejo MD POINT OF CARE TEST [place] Performing Organization Address [facility]/ZIP Co de Phone Number HOSPITAL LAB See Below * (ABNORMAL) POCT Glucose, Fingerstick (11/08/2024 7:46 AM EST) POC Glucose 198(H) 65 - 99 mg/dL 11/08/2024 7:55 AM EST Blood specimen / Unknown 11/08/2024 7:46 AM EST 11/08/2024 7:54 AM EST Dallas Camejo MD POINT OF CARE TEST [facility]ITAL LAB See Below * CT Head [...] Troponin T (Once) (11/08/2024 12:05 AM EST) [facility] High Sensitivity Troponin T 26(H) <23 ng/L 11/08/2024 12:39 AM EST [facility] Delta (Change) NO CHANGE <3 11/08/2024 12:39 AM EST [facility] Blood (Plasma/Serum) 11/08/2024 12:05 AM EST 11/08/2024 12:16 AM EST Kayla Orona [facility] LAB BLOOD ORDERABLES Performing Organization Address [facility]/ZIP Co de Phone Number [address] [address], [address] [address] * Creatine Kinase (CK) (11/08/2024 12:05 AM EST) [facility] Creatine Kinase (CK) 91 24 - 204 U/L 11/08/2024 12:39 AM EST [facility] Blood (Plasma/Serum) 11/08/2024 12:05 AM EST 11/08/2024 12:[address] [facility] LAB BLOOD ORDERABLES Performing Organization Address City/[facility] Co de Phone Number [address] [address], [address] [address] * (ABNORMAL) proBNP, N-terminal (11/08/2024 12:05 AM EST) proBNP, N-terminal 4,241(H) <125 pg/mL 11/08/2024 12:39 AM [facility] Blood Plasma specimen / Unknown 11/08/2024 12:05 AM EST 11/08/2024 12:16 AM EST Kayla Orona APRN LAB BLOOD ORDERABLES [address] [address], [address] [address] * (ABNORMAL) HEPATIC FUNCTION PANEL (11/08/2024 12:05 AM EST) Alkaline Phosphatase 226(H) 45 - 128 U/L 11/08/2024 12:39 AM [facility] Aspartate Aminotrans (AST) 24 10 - 55 U/L 11/08/2024 12:39 AM [facility] Alanine Aminotrans (ALT) 24 10 - 55 U/L 11/08/2024 12:39 AM [facility] Bilirubin, Total <0.2(L) 0.2 - 1.0 mg/dL 11/08/2024 12:39 AM [facility] Protein, Total 5.5(L) 6.3 - 8.3 g/dL 11/08/2024 12:39 AM [facility] Albumin 2.3(L) 3.4 - 4.8 g/dL 11/08/2024 12:39 AM [facility] Bilirubin, Direct 0.1 0 - 0.2 mg/dL 11/08/2024 12:39 AM [facility] Globulin 3.2 1.5 - 3.9 g/dL 11/08/2024 12:39 AM [facility] Albumin/Globulin Ratio 0.7(L) 1.0 - 3.0 Ratio 11/08/2024 12:39 AM [facility] Blood (Plasma/Serum) 11/08/2024 12:05 AM EST 11/08/2024 12:16 AM EST Kayla [facility] OUTLET MANAGER LAB BLOOD ORDERABLES [address] [address], [address] [address] * (ABNORMAL) COMPLETE BLOOD COUNT, WITHOUT DIFFERENTIAL (11/08/2024 12:05 AM EST) White Blood Cell Count 13.1(H) 4.0 - 11.0 Thou/uL 11/08/2024 12:22 AM [facility] Platelet Count 378 150 - 450 Thou/uL 11/08/2024 12:22 AM [facility] Hemoglobin 7.9(L) 13.0 - 17.7 g/dL 11/08/2024 12:22 AM [facility] Hematocrit 25.6(L) 39.0 - 54.0 % 11/08/2024 12:22 AM [facility] Red Blood Cell Count 2.83(L) 4.50 - 6.20 Mil/uL 11/08/2024 12:22 AM [facility] MCV 91 80 - 100 fL 11/08/2024 12:22 AM [facility] MCH 27.9 27.0 - 31.0 pg 11/08/2024 12:22 AM [facility] MCHC 30.9 30.0 - 36.0 g/dL 11/08/2024 12:22 AM [facility] RDW 16.9(H) 11.5 - 14.5 % 11/08/2024 12:22 AM [facility] MPV 9.3 7.5 - 12.5 fL 11/08/2024 12:22 AM [facility] Blood Blood specimen / Unknown 11/08/2024 12:05 AM EST 11/08/2024 12:16 AM EST Kayla Orona OUTLET MANAGER LAB BLOOD ORDERABLES [address] [address], [address] [address] * (ABNORMAL) Phosphorus (11/08/2024 12:05 AM EST) Phosphorus 5.2(H) 2.7 - 4.5 mg/dL 11/08/2024 12:39 AM [facility] Blood (Plasma/Serum) 11/08/2024 12:05 AM EST 11/08/2024 12:16 AM EST [facility] LAB BLOOD ORDERABLES Performing Organization Address City/[facility]/[place] [address], [place] [address] * Magnesium (11/08/2024 12:05 AM EST) Magnesium 2.0 1.6 - 2.7 mg/dL 11/08/2024 12:39 AM [facility] Blood (Plasma/Serum) 11/08/2024 12:05 AM EST 11/08/2024 12:16 AM EST [facility] LAB BLOOD ORDERABLES Performing Organization Address City/[facility]/[place] [address], [place] [address] * (ABNORMAL) Basic Metabolic Panel (11/08/2024 12:05 AM EST) Glucose 231(H) 65 - 99 mg/dL 11/08/2024 12:39 AM [facility] Comment:Fasting: <100 mg/dL, Non-Fasting: <200 mg/dL (ADA 2005) Blood Urea Nitrogen (BUN) 48(H) 8 - 21 mg/dL 11/08/2024 12:39 AM [facility] Creatinine 1.6(H) 0.5 - 1.3 mg/dL 11/08/2024 12:39 AM [facility] eGFR 48(L) >59 11/08/2024 12:39 AM [facility] Comment:CKD-EPI (2020) in mL /min/1.73 sq meters. Sodium 133(L) 136 - 145 mmol/L 11/08/2024 12:39 AM [facility] Potassium 3.8 3.4 - 5.3 mmol/L 11/08/2024 12:39 AM [facility] Chloride 98 98 - 107 mmol/L 11/08/2024 12:39 AM [facility] CO2 21(L) 22 - 33 mmol/L 11/08/2024 12:39 AM [facility] Anion Gap 14 7 - 17 11/08/2024 12:39 AM [facility] Calcium 7.9(L) 8.7 - 10.5 mg/dL 11/08/2024 12:39 AM [facility] BUN/Creatinine Ratio 30(H) 10.0 - 25.0 Ratio 11/08/2024 12:39 AM [facility] Blood (Plasma/Serum) 11/08/2024 12:05 AM EST 11/08/2024 12:16 AM EST Kyala Orona APRN LAB BLOOD ORDERABLES Performing Organization Address City/[facility]/[place] [address], [place] [address] * (ABNORMAL) POCT Glucose, Fingerstick (11/07/2024 7:47 PM EST) [facility] POC Glucose 261(H) 65 - 99 mg/dL 11/07/2024 7:53 PM EST Blood specimen / Unknown 11/07/2024 7:47 PM EST 11/07/2024 7:53 PM EST Dallas Camejo MD POINT OF CARE TEST [facility]OSPITAL LAB See Below * Respiratory PCR Panel (11/07/2024 6:30 PM EST) [facility] Adenovirus Not Detected Not Detected 11/08/2024 12:23 AM [facility] Coronavirus 229E Not Detected Not Detected 11/08/2024 12:23 AM [facility] Coronavirus HKU1 Not Detected Not Detected 11/08/2024 12:23 AM [facility] Coronavirus NL63 Not Detected Not Detected 11/08/2024 12:23 AM [facility] Coronavirus OC43 Not Detected Not Detected 11/08/2024 12:23 AM [facility] Human Metapneumovirus Not Detected Not Detected 11/08/2024 12:23 AM [facility] Rhinovirus/Enterov irus Not Detected Not Detected 11/08/2024 12:23 AM [facility] Influenza A Not Detected Not Detected 11/08/2024 12:23 AM [facility] Influenza B Not Detected Not Detected 11/08/2024 12:23 AM [facility] Parainfluenza 1 (PIV1) Not Detected Not Detected 11/08/2024 12:23 AM [facility] Parainfluenza 2 (PIV2) Not Detected Not Detected 11/08/2024 12:23 AM [facility] Parainfluenza 3 (PIV3) Not Detected Not Detected 11/08/2024 12:23 AM [facility] Parainfluenza 4 (PIV4) Not Detected Not Detected 11/08/2024 12:23 AM [facility] Respiratory Syncytial Virus Not Detected Not Detected 11/08/2024 12:23 AM [facility] Bordetella pertussis Not Detected Not Detected 11/08/2024 12:23 AM [facility] Chlamydophila pneumoniae Not Detected Not Detected 11/08/2024 12:23 AM [facility] Mycoplasma pneumoniae Not Detected Not Detected 11/08/2024 12:23 AM [facility] Bordetella parapertussis Not Detected Not Detected 11/08/2024 12:23 AM [facility] SARS CoV 2 Not Detected Not Detected 11/08/2024 12:23 AM [facility] X-Specimen 24 Nasopharyngeal swab / Unknown 11/07/2024 6:30 PM EST 11/07/2024 8:00 PM EST Kayla Orona APRN MICROBIOLOGY - GENER AL ORDERABLES [facility] [address] [place] [address], * (ABNORMAL) High Sensitivity Troponin T (Once) (11/07/2024 4:12 PM EST) High Sensitivity Troponin T 29(H) <23 ng/L 11/07/2024 5:28 PM EST [facility] Delta (Change) 3(H) <3 11/07/2024 5:28 PM EST [facility] Comment:Increased Blood (Plasma/Serum) 11/07/2024 4:12 PM EST 11/07/2024 5:01 PM EST [facility] LAB BLOOD ORDERABLES Performing Organization Address City/[facility]/[place] [address], [place] [address] * (ABNORMAL) Phosphorus (11/07/2024 4:12 PM EST) Phosphorus 4.7(H) 2.7 - 4.5 mg/dL 11/07/2024 5:28 PM EST [facility] Blood (Plasma/Serum) 11/07/2024 4:12 PM EST 11/07/2024 5:[address] [facility] Performing Organization Address City/[facility]/[place] [address], [place] [address] * Magnesium (11/07/2024 4:12 PM EST) Magnesium 2.2 1.6 - 2.7 mg/dL 11/07/2024 5:28 PM [facility] Blood (Plasma/Serum) 11/07/2024 4:12 PM EST 11/07/2024 5:[address] [facility] Performing Organization Address City/[facility]/[place] [address], [place] [address] * (ABNORMAL) Basic Metabolic Panel (11/07/2024 4:12 PM EST) Glucose 183(H) 65 - 99 mg/dL 11/07/2024 5:28 PM [facility] Comment:Fasting: <100 mg/dL, Non-Fasting: <200 mg/dL (ADA 2005) Blood Urea Nitrogen (BUN) 47(H) 8 - 21 mg/dL 11/07/2024 5:28 PM [facility] Creatinine 1.6(H) 0.5 - 1.3 mg/dL 11/07/2024 5:28 PM [facility] eGFR 48(L) >59 11/07/2024 5:28 PM [facility] Comment:CKD-EPI (2020) in mL /min/1.73 sq meters. Sodium 131(L) 136 - 145 mmol/L 11/07/2024 5:28 PM [facility] Potassium 3.7 3.4 - 5.3 mmol/L 11/07/2024 5:28 PM [facility] Chloride 98 98 - 107 mmol/L 11/07/2024 5:28 PM [facility] CO2 21(L) 22 - 33 mmol/L 11/07/2024 5:28 PM [facility] Anion Gap 12 7 - 17 11/07/2024 5:28 PM [facility] Calcium 8.1(L) 8.7 - 10.5 mg/dL 11/07/2024 5:28 PM [facility] BUN/Creatinine Ratio 29(H) 10.0 - 25.0 Ratio 11/07/2024 5:28 PM [facility] Blood (Plasma/Serum) 11/07/2024 4:12 PM EST 11/07/2024 5:01 PM EST Kayla Orona APRN [place] [address], [place] [address] * (ABNORMAL) POCT Glucose, Fingerstick (11/07/2024 3:53 PM EST) POC Glucose 179(H) 65 - 99 mg/dL 11/07/2024 3:58 PM EST Blood specimen / Unknown 11/07/2024 3:53 PM EST 11/07/2024 3:58 PM EST Dallas Camejo MD POINT OF CARE TEST [facility] LAB See Below * ECG 12 lead (11/07/2024 2:58 PM EST) [facility] Systolic BP 116 mmHg EKG [facility] Diastolic BP 57 mmHg EKG [facility] Ventricular rate 62 BPM EKG [facility] Atrial rate 55 BPM EKG [facility] QRS duration 168 ms EKG [facility] Q-T interval 506 ms EKG [facility] QTC calculation (Bazett) 513 ms EKG [facility] R axis 104 degrees EKG [facility] T axis -39 degrees EKG [facility] 11/07/2024 2:58 PM EST Narrative EKG [...] Camejo MD ECG ORDERABLES Performing Organization Address City/[facility]/ZIP Co de Phone Number [facility] * BLOOD CULTURE Peripheral (11/07/2024 1:02 PM EST) Culture Sterile after 5 days 11/12/2024 7:50 AM [facility] Microbiology Peripheral blood specimen / Unknown 11/07/2024 1:02 PM EST 11/07/2024 1:23 PM EST Chris Taylor MD LAB AMB MICRO ORDERA BLES Performing Organization Address [facility] Co de Phone Number [facility] [address] [place] [address], * BLOOD CULTURE Peripheral (11/07/2024 12:57 PM EST) Culture Sterile after 5 days 11/12/2024 7:50 AM [facility] Microbiology Peripheral blood specimen / Unknown 11/07/2024 12:57 PM EST 11/07/2024 1:49 PM EST Chris Taylor MD LAB AMB MICRO ORDERA BLES Performing Organization Address [facility] Phone Number [facility] [address] [place] [address], * (ABNORMAL) Blood Gas, Arterial (STAT) (11/07/2024 12:36 PM EST) pH, Arterial 7.38 7.35 - 7.45 11/07/2024 1:02 PM [facility] pCO2, Arterial 36 32 - 45 mmHG 11/07/2024 1:02 PM [facility] pO2, Arterial 119(H) 75 - 95 mmHG 11/07/2024 1:02 PM [facility] CO2, Total 22 22 - 28 mmol/L 11/07/2024 1:02 PM [facility] Respiratory Info OTHER 11/07/19 25 12:36 PM EST Base Deficiency 3.5 mmol/L 1:02 PM [facility] Comment:Reference Range: Neg ative 2 to Positive 3 Blood Blood specimen / Unknown 11/07/2024 12:36 PM EST 11/07/2024 12:50 PM EST Kayla Orona APRN LAB BLOOD ORDERABLES [facility] [address] [place] [address], [facility] [address] [place] [address] * (ABNORMAL) POCT Glucose, Fingerstick (11/07/2024 12:29 PM EST) POC Glucose 213(H) 65 - 99 mg/dL 11/07/2024 12:29 PM EST Blood specimen / Unknown 11/07/2024 12:29 PM EST 11/07/2024 12:30 PM EST Dallas Camejo MD POINT OF CARE TEST O RDERABLES Performing Organization Address City/[facility]/ZIP Co de Phone Number HOSPITAL LAB See Below * XR Chest 1 view-Portable (STAT) (11/07/2024 10:17 AM EST) Anatomical Region Laterality Modality Chest Computed Radiogr aphy 11/07/2024 9:50 AM EST Impressions 11/07/2024 2:54 PM EST Worsening bilateral upper lung field airspace opacities and bronchial wall thickening compared to prior. Interpreted by: ??Roberto Tolbert MD Bench Boring Machine Operator I personally reviewed the images and [...] to prior. Interpreted by: Roberto Tolbert MD Bench Boring Machine Operator I personally reviewed the images and the resident's preliminary report and AGREE with the report as it is now presented ([id number]). Juaquin Kern MD IMG DIAGNOSTIC SOCOR[place] GING ORDERABLES * (ABNORMAL) High Sensitivity Troponin T (11/07/2024 8:13 AM EST) [facility] High Sensitivity Troponin T 26(H) <23 ng/L 11/07/2024 12:53 PM EST [facility] Delta (Change) NO PREVIOUS RESULT <3 11/07/2024 12:53 PM EST [facility] Plasma/Serum 11/07/2024 8:13 AM EST 11/07/2024 8:49 AM EST Juaquin Kern MD LAB BLOOD ORDERABL ES Performing Organization Address City/[facility]/[place] [address], [place] [address] * (ABNORMAL) proBNP, N-terminal (11/07/2024 8:13 AM EST) [facility] proBNP, N-terminal 3,427(H) <125 pg/mL 11/07/2024 10:25 AM EST [facility] Plasma specimen / Unknown 11/07/2024 8:13 AM EST 11/07/2024 8:49 AM EST Juaquin Kern MD LAB BLOOD ORDERABL ES Performing Organization Address City/[facility]/[place] [address], [place] [address] * (ABNORMAL) Complete Blood Count, WITHOUT Differential (routine) (11/07/2024 8:13 AM EST) White Blood Cell Count 12.4(H) 4.0 - 11.0 Thou/uL 11/07/2024 9:05 AM [facility] Platelet Count 430 150 - 450 Thou/uL 11/07/2024 9:05 AM [facility] Hemoglobin 8.9(L) 13.0 - 17.7 g/dL 11/07/2024 9:05 AM [facility] Hematocrit 28.9(L) 39.0 - 54.0 % 11/07/2024 9:05 AM [facility] Red Blood Cell Count 3.16(L) 4.50 - 6.20 Mil/uL 11/07/2024 9:05 AM [facility] MCV 92 80 - 100 fL 11/07/2024 9:05 AM [facility] MCH 28.2 27.0 - 31.0 pg 11/07/2024 9:05 AM [facility] MCHC 30.8 30.0 - 36.0 g/dL 11/07/2024 9:05 AM [facility] RDW 16.7(H) 11.5 - 14.5 % 11/07/2024 9:05 AM [facility] MPV 9.6 7.5 - 12.5 fL 11/07/2024 9:05 AM [facility] nRBC 0.2(H) 0.0 - 0.1 /100 WBC 11/07/2024 9:05 AM [facility] nRBC, Absolute 0.03(H) 0.00 - 0.02 Thou/uL 11/07/2024 9:05 AM [facility] Blood Blood specimen / Unknown 11/07/2024 8:13 AM EST 11/07/2024 8:49 AM EST Juaquin Kern MD [place] [address], [place] [address] * MAGNESIUM (11/07/2024 8:13 AM EST) Pathologist [facility] Magnesium 2.3 1.6 - 2.7 mg/dL 11/07/2024 9:26 AM [facility] Blood (Plasma/Serum) 11/07/2024 8:13 AM EST 11/07/2024 8:49 AM EST Juaquin Kern MD LAB BLOOD ORDERABL ES Performing Organization Address [facility]/[place] [address], [place] [address] * PHOSPHORUS (11/07/2024 8:13 AM EST) Phosphorus 4.3 2.7 - 4.5 mg/dL 11/07/2024 9:26 AM [facility] Blood (Plasma/Serum) 11/07/2024 8:13 AM EST 11/07/2024 8:49 AM EST Juaquin Kern MD LAB BLOOD ORDERABL ES Performing Organization Address City/[facility]/[place] [address], [place] [address] * (ABNORMAL) Comprehensive Metabolic Panel (11/07/2024 8:13 AM EST) Glucose 188(H) 65 - 99 mg/dL 11/07/2024 9:26 AM [facility] Comment:Fasting: <100 mg/dL, Non-Fasting: <200 mg/dL (ADA 2005) Blood Urea Nitrogen (BUN) 47(H) 8 - 21 mg/dL 11/07/2024 9:26 AM [facility] Creatinine 1.5(H) 0.5 - 1.3 mg/dL 11/07/2024 9:26 AM [facility] eGFR 52(L) >59 11/07/2024 9:26 AM [facility] Comment:CKD-EPI (2020) in mL /min/1.73 sq meters. Sodium 129(L) 136 - 145 mmol/L 11/07/2024 9:26 AM [facility] Potassium 3.9 3.4 - 5.3 mmol/L 11/07/2024 9:26 AM [facility] Chloride 94(L) 98 - 107 mmol/L 11/07/2024 9:26 AM [facility] CO2 22 22 - 33 mmol/L 11/07/2024 9:26 AM [facility] Calcium 8.3(L) 8.7 - 10.5 mg/dL 11/07/2024 9:26 AM [facility] Alkaline Phosphatase 220(H) 45 - 128 U/L 11/07/2024 9:26 AM [facility] Aspartate Aminotrans (AST) 28 10 - 55 U/L 11/07/2024 9:26 AM [facility] Alanine Aminotrans (ALT) 29 10 - 55 U/L 11/07/2024 9:26 AM [facility] Bilirubin, Total 0.2 0.2 - 1.0 mg/dL 11/07/2024 9:26 AM [facility] Protein, Total 6.1(L) 6.3 - 8.3 g/dL 11/07/2024 9:26 AM [facility] Albumin 2.6(L) 3.4 - 4.8 g/dL 11/07/2024 9:26 AM [facility] BUN/Creatinine Ratio 31(H) 10.0 - 25.0 Ratio 11/07/2024 9:26 AM [facility] Globulin 3.5 1.5 - 3.9 g/dL 11/07/2024 9:26 AM [facility] Albumin/Globulin Ratio 0.7(L) 1.0 - 3.0 Ratio 11/07/2024 9:26 AM [facility] Anion Gap 13 7 - 17 11/07/2024 9:26 AM [facility] Blood (Plasma/Serum) 11/07/2024 8:13 AM EST 11/07/2024 8:49 AM EST Juaquin Kern MD LAB BLOOD ORDERABL ES [address] [address], [address] [address] * (ABNORMAL) POCT Glucose, Fingerstick (11/07/2024 7:33 AM EST) POC Glucose 191(H) 65 - 99 mg/dL 11/07/2024 7:36 AM EST Blood specimen / Unknown 11/07/2024 7:33 AM EST 11/07/2024 7:36 AM EST Dallas Camejo MD POINT OF CARE TEST O RDERALUCILLE Performing Organization Address [facility] LAB See Below * (ABNORMAL) POCT Glucose, Fingerstick (11/07/2024 2:07 AM EST) POC Glucose 231(H) 65 - 99 mg/dL 11/07/2024 2:08 AM EST Blood specimen / Unknown 11/07/2024 2:07 AM EST 11/07/2024 2:08 AM EST Dallas Camejo MD POINT OF CARE TEST O JOSEPH Performing Organization Address [facility] LAB See Below * (ABNORMAL) POCT Glucose, Fingerstick (11/06/2024 9:23 PM EST) POC Glucose 277(H) 65 - 99 mg/dL 11/06/2024 9:24 PM EST Blood specimen / Unknown 11/06/2024 9:23 PM EST 11/06/2024 9:24 PM EST Dallas Camejo MD POINT OF CARE TEST O C[place]STIANER[place]UCIL[place] Performing Organization Address [facility] Number [facility] LAB See Below * (ABNORMAL) POCT Glucose, Fingerstick (11/06/2024 5:24 PM EST) POC Glucose 193(H) 65 - 99 mg/dL 11/06/2024 5:29 PM EST Blood specimen / Unknown 11/06/2024 5:24 PM EST 11/06/2024 5:29 PM EST Dallas Camejo MD POINT OF CARE TEST O RDERABLES Performing Organization Address [facility] Phone Number [facility] LAB See Below * (ABNORMAL) POCT Glucose, Fingerstick (11/06/2024 2:45 PM EST) POC Glucose 217(H) 65 - 99 mg/dL 11/06/2024 2:46 PM EST Blood specimen / Unknown 11/06/2024 2:45 PM EST 11/06/2024 2:46 PM EST Dallas Camejo MD POINT OF CARE TEST O RDERABLES Performing Organization Address [facility] Phone Number [facility] LAB See Below * (ABNORMAL) POCT Glucose, Fingerstick (11/06/2024 12:10 PM EST) POC Glucose 229(H) 65 - 99 mg/dL 11/06/2024 2:24 PM EST Blood specimen / Unknown 11/06/2024 12:10 PM EST 11/06/2024 2:24 PM EST Dallas Camejo MD POINT OF CARE TEST O RDERABLES Performing Organization Address [facility] LAB See Below * (ABNORMAL) POCT Glucose, Fingerstick (11/06/2024 7:51 AM EST) POC Glucose 210(H) 65 - 99 mg/dL 11/06/2024 8:43 AM EST Blood specimen / Unknown 11/06/2024 7:51 AM EST 11/06/2024 8:43 AM EST Dallas Camejo MD POINT OF CARE TEST O RDERABLES Performing Organization Address [facility] Phone Number [facility] LAB See Below * (ABNORMAL) Complete Blood Count WITH Differential - Early AM (11/06/2024 4:58 AM EST) Pathologist [facility] White Blood Cell Count 11.9(H) 4.0 - 11.0 Thou/uL 11/06/2024 5:26 AM EST [facility] Platelet Count 346 150 - 450 Thou/uL 11/06/2024 5:26 AM [facility] Hemoglobin 8.7(L) 13.0 - 17.7 g/dL 11/06/2024 5:26 [facility] Hematocrit 27.9(L) 39.0 - 54.0 % 11/06/2024 5:26 AM [facility] Red Blood Cell Count 3.05(L) 4.50 - 6.20 Mil/uL 11/06/2024 5:26 AM [facility] MCV 92 80 - 100 fL 11/06/2024 5:26 AM [facility] MCH 28.5 27.0 - 31.0 pg 11/06/2024 5: AM [facility] MCHC 31.2 30.0 - 36.0 g/dL 11/06/2024 5: [facility] RDW 16.4(H) 11.5 - 14.5 % 11/06/2024 5: [facility] MPV 9.5 7.5 - 12.5 fL 11/06/2024 5:26 [facility] Neutrophils Auto 88.8 % 11/06/19 5: [facility] Immature Granulocytes 1.1 % 11/06/2024 5: [facility] Lymphocytes Auto 3.4 % 11/06/19 5: [facility] Monocytes Auto 6.6 % 11/06/2024 5: [facility] Eosinophils Auto 0.0 % 11/06/19 5: AM [facility] Basophils Auto 0.1 % 11/06/2024 5:26 AM [facility] Abs Neutrophils Auto 10.57(H) 2.00 - 7.50 Thou/uL 11/06/2024 5:26 AM [facility] Abs Immature Granulocytes 0.13(H) 0.00 - 0.10 Thou/uL 11/06/2024 5:26 AM [facility] Abs Lymphocytes Auto 0.41(L) 1.50 - 4.50 Thou/uL 11/06/2024 5:26 [facility] Abs Monocytes Auto 0.79 0.20 - 1.50 Thou/uL 11/06/2024 5:26 AM [facility] Abs Eosinophils Auto 0.00 0.00 - 0.70 Thou/uL 11/06/2024 5:26 AM [facility] Abs Basophils Auto 0.01 0.00 - 0.20 Thou/uL 11/06/2024 5:26 AM [facility] Blood Blood specimen / Unknown 11/06/2024 4:58 AM EST 11/06/2024 5:15 AM EST Renea PATTON [place] [address], [place] [address] * (ABNORMAL) PHOSPHORUS (11/06/2024 4:58 AM EST) Phosphorus 5.1(H) 2.7 - 4.5 mg/dL 11/06/2024 5:46 AM [facility] Blood (Plasma/Serum) 11/06/2024 4:58 AM EST 11/06/2024 5:15 AM EST Renea PATTON LAB BLOOD ORDERABLES Performing Organization Address City/[facility]/[place] [address], [place] [address] * MAGNESIUM (11/06/2024 4:58 AM EST) Magnesium 2.5 1.6 - 2.7 mg/dL 11/06/2024 5:46 AM [facility] Blood (Plasma/Serum) 11/06/2024 4:58 AM EST 11/06/2024 5:15 AM EST Renea PATTON LAB BLOOD ORDERABLES Performing Organization Address City/[facility]/[place] [address], [place] [address] * (ABNORMAL) Comprehensive Metabolic Panel (11/06/2024 4:58 AM EST) Pathologist [facility] Glucose 194(H) 65 - 99 mg/dL 11/06/2024 5:46 AM [facility] Comment:Fasting: <100 mg/dL, Non-Fasting: <200 mg/dL (ADA 2004) Blood Urea Nitrogen (BUN) 48(H) 8 - 21 mg/dL 11/06/2024 5:46 AM [facility] Creatinine 1.7(H) 0.5 - 1.3 mg/dL 11/06/2024 5:46 AM [facility] eGFR 45(L) >59 11/06/2024 5:46 AM [facility] Comment:CKD-EPI (2020) in mL /min/1.73 sq meters. Sodium 131(L) 136 - 145 mmol/L 11/06/2024 5:46 AM [facility] Potassium 3.8 3.4 - 5.3 mmol/L 11/06/2024 5:46 AM [facility] Chloride 99 98 - 107 mmol/L 11/06/2024 5:46 AM [facility] CO2 20(L) 22 - 33 mmol/L 11/06/2024 5:46 AM [facility] Calcium 7.8(L) 8.7 - 10.5 mg/dL 11/06/2024 5:46 AM [facility] Alkaline Phosphatase 270(H) 45 - 128 U/L 11/06/2024 5:46 AM [facility] Aspartate Aminotrans (AST) 50 10 - 55 U/L 11/06/2024 5:46 AM [facility] Alanine Aminotrans (ALT) 31 10 - 55 U/L 11/06/2024 5:46 AM [facility] Bilirubin, Total 0.2 0.2 - 1.0 mg/dL 11/06/2024 5:46 AM [facility] Protein, Total 5.7(L) 6.3 - 8.3 g/dL 11/06/2024 5:46 AM [facility] Albumin 2.4(L) 3.4 - 4.8 g/dL 11/06/2024 5:46 AM [facility] BUN/Creatinine Ratio 28(H) 10.0 - 25.0 Ratio 11/06/2024 5:46 AM [facility] Globulin 3.3 1.5 - 3.9 g/dL 11/06/2024 5:46 AM [facility] Albumin/Globulin Ratio 0.7(L) 1.0 - 3.0 Ratio 11/06/2024 5:46 AM [facility] Anion Gap 12 7 - 17 11/06/2024 5:46 AM [facility] Blood (Plasma/Serum) 11/06/2024 4:58 AM EST 11/06/2024 5:15 AM EST Renae PATTON LAB BLOOD ORDERABLES Performing Organization Address City/[facility]/[place] [address], [place] [address] * BLOOD CULTURE Peripheral (11/06/2024 4:58 AM EST) Culture Sterile after 5 days 11/11/2024 8:20 AM [facility] Microbiology Peripheral blood specimen / Unknown 11/06/2024 4:58 AM EST 11/06/2024 5:36 AM EST Renea PATTON LAB AMB MICRO ORDERA BLES Performing Organization Address City/[facility]/ZIP Co de Phone Number [facility] [address] [place] [address], * BLOOD CULTURE Peripheral (11/06/2024 4:58 AM EST) Culture Sterile after 5 days 11/11/2024 8:20 AM [facility] Microbiology Peripheral blood specimen / Unknown 11/06/2024 4:58 AM EST 11/06/2024 5:36 AM EST Renea PATTON LAB AMB MICRO ORDERA BLES Performing Organization Address City/[facility]/ZIP Co de Phone Number [facility] [address] [address], * (ABNORMAL) POCT Glucose, Fingerstick (11/06/2024 1:17 AM EST) POC Glucose 229(H) 65 - 99 mg/dL 11/06/2024 1:18 AM EST Blood specimen / Unknown 11/06/2024 1:17 AM EST 11/06/2024 1:18 AM EST Dallas Camejo MD POINT OF CARE TEST O [place]UC[place] Performing Organization Address [facility] Number [facility] LAB See Below * (ABNORMAL) POCT Glucose, Fingerstick (11/05/2024 11:05 PM EST) POC Glucose 251(H) 65 - 99 mg/dL 11/05/2024 11:07 PM EST Blood specimen / Unknown 11/05/2024 11:05 PM EST 11/05/2024 11:07 PM EST Dallas Camejo MD POINT OF CARE TEST O [place] Performing Organization Address [facility] Number [facility] LAB See Below * (ABNORMAL) POCT Glucose, Fingerstick (11/05/2024 6:10 PM EST) POC Glucose 138(H) 65 - 99 mg/dL 11/05/2024 6:10 PM EST Blood specimen / Unknown 11/05/2024 6:10 PM EST 11/05/2024 6:11 PM EST Dallas Camejo MD POINT OF CARE TEST O [place] Performing Organization Address [facility] Phone Number [facility] LAB See Below * (ABNORMAL) POCT Glucose, Fingerstick (11/05/2024 3:37 PM EST) POC Glucose 138(H) 65 - 99 mg/dL 11/05/2024 3:38 PM EST Blood specimen / Unknown 11/05/2024 3:37 PM EST 11/05/2024 3:38 PM EST Dallas Camejo MD [facility] See Below * Pathology (11/05/2024 2:11 PM EST) Report [facility] CT [id number] ?? CLIA ID [id number] [address] [place], [place] ??[phone] Surgical Pathology Report PATIENT NAME: BLAS GENAO REC NUMBER: [id number] (AGE): 1960 (Age: 63) SPECIMEN NUMBER: [id number] DATE OBTAINED: 11/05/2024 DIAGNOSIS LEFT LOWER EXTREMITY, BELOW KNEE AMPUTATION: ??SEVERE PERIPHERAL ARTERIOSCLEROSIS WITH CALCIFICATION, GANGRENOUS ULCER OF FOOT WITH SEVERE ACUTE OSTEOMYELITIS. NEGATIVE AMPUTATION MARGIN. 11/16/2024 Electronically Signed Out ? SENA SHABAZZ MD COMMENT [id number], [id number] Clinical Information and History: Acute osteomyelitis of [...] other masses or lesions are grossly identified. ??Bra[employer] Co[employer] sections are submitted in A1 - ?? [...] tibial artery margin (inked blue), en face [facility] Bone with Tissue Structure of [...] [facility] See Below * (ABNORMAL) PROTIME-INR (11/05/2024 7:12 AM EST) [facility] Anticoagulant Information not given 11/05/2024 7:47 AM [facility] Prothrombin Time (PT) 15.3(H) 10.0 - 13.5 seconds 11/05/2024 8:07 AM [facility] INR 1.3 11/05/2024 8:07 AM [facility] Comment:INR Therapeutic Rang es: Standard dose anticoagulant 2.0 to 3.0, High dose anticoagulant 2.5-3.5. Plasma specimen / Unknown 11/05/2024 7:12 AM EST 11/05/2024 7:46 AM EST Chris Taylor MD LAB BLOOD ORDERABLES Performing Organization Address City/[facility]/[place] [address], [place] [address] * (ABNORMAL) COMPLETE BLOOD COUNT, WITHOUT DIFFERENTIAL (11/05/2024 7:12 AM EST) [facility] White Blood Cell Count 15.9(H) 4.0 - 11.0 Thou/uL 11/05/2024 7:59 AM [facility] Platelet Count 353 150 - 450 Thou/uL 11/05/2024 7:59 AM [facility] Hemoglobin 9.1(L) 13.0 - 17.7 g/dL 11/05/2024 7:59 AM [facility] Hematocrit 28.3(L) 39.0 - 54.0 % 11/05/2024 7:59 AM [facility] Red Blood Cell Count 3.12(L) 4.50 - 6.20 Mil/uL 11/05/2024 7:59 AM [facility] MCV 91 80 - 100 fL 11/05/2024 7:59 AM [facility] MCH 29.2 27.0 - 31.0 pg 11/05/2024 7:59 AM [facility] MCHC 32.2 30.0 - 36.0 g/dL 11/05/2024 7:59 AM [facility] RDW 16.8(H) 11.5 - 14.5 % 11/05/2024 7:59 AM [facility] MPV 9.8 7.5 - 12.5 fL 11/05/2024 7:59 AM [facility] Blood specimen / Unknown 11/05/2024 7:12 AM EST 11/05/2024 7:46 AM EST Chris Taylor MD [place] [address], [place] [address] * (ABNORMAL) BASIC METABOLIC PANEL (11/05/2024 7:12 AM EST) Glucose 146(H) 65 - 99 mg/dL 11/05/2024 8:18 AM [facility] Comment:Fasting: <100 mg/dL, Non-Fasting: <200 mg/dL (ADA 2004) Blood Urea Nitrogen (BUN) 47(H) 8 - 21 mg/dL 11/05/2024 8:18 AM [facility] Creatinine 2.0(H) 0.5 - 1.3 mg/dL 11/05/2024 8:18 AM [facility] eGFR 37(L) >59 11/05/2024 8:18 AM [facility] Comment:CKD-EPI (2020) in mL /min/1.73 sq meters. Sodium 130(L) 136 - 145 mmol/L 11/05/2024 8:18 AM [facility] Potassium 3.4 3.4 - 5.3 mmol/L 11/05/2024 8:18 AM [facility] Chloride 96(L) 98 - 107 mmol/L 11/05/2024 8:18 AM [facility] CO2 19(L) 22 - 33 mmol/L 11/05/2024 8:18 AM [facility] Anion Gap 15 7 - 17 11/05/2024 8:18 AM [facility] Calcium 7.9(L) 8.7 - 10.5 mg/dL 11/05/2024 8:18 AM [facility] BUN/Creatinine Ratio 24 10.0 - 25.0 Ratio 11/05/2024 8:18 AM [facility] Plasma/Serum 11/05/2024 7:12 AM EST 11/05/2024 7:46 AM EST Chris Taylor MD LAB BLOOD ORDERABLES Performing Organization Address City/State/[place] [address], [place] [address] * (ABNORMAL) Hepatic Function Panel (AM) (11/05/2024 7:12 AM EST) Alkaline Phosphatase 153(H) 45 - 128 U/L 11/05/2024 8:18 AM [facility] Aspartate Aminotrans (AST) 26 10 - 55 U/L 11/05/2024 8:18 AM [facility] Alanine Aminotrans (ALT) 23 10 - 55 U/L 11/05/2024 8:18 AM [facility] Bilirubin, Total 0.3 0.2 - 1.0 mg/dL 11/05/2024 8:18 AM [facility] Protein, Total 5.9(L) 6.3 - 8.3 g/dL 11/05/2024 8:18 AM [facility] Albumin 2.5(L) 3.4 - 4.8 g/dL 11/05/2024 8:18 AM [facility] Bilirubin, Direct 0.2 0 - 0.2 mg/dL 11/05/2024 8:18 AM [facility] Globulin 3.4 1.5 - 3.9 g/dL 11/05/2024 8:18 AM [facility] Albumin/Globulin Ratio 0.7(L) 1.0 - 3.0 Ratio 11/05/2024 8:18 AM [facility] Blood (Plasma/Serum) 11/05/2024 7:12 AM EST 11/05/2024 7:46 AM EST Chris Taylor MD LAB BLOOD ORDERABLES Performing Organization Address [facility]/[place] [address], [place] [address] * Creatine Kinase, Reflex to [facility]MB (11/05/2024 7:12 AM EST) Creatine Kinase (CK) 49 24 - 204 U/L 11/05/2024 8:18 AM EST [facility] Blood (Plasma/Serum) 11/05/2024 7:12 AM EST 11/05/2024 7:46 AM EST Chris Taylor MD LAB BLOOD ORDERABLES Performing Organization Address [facility]/[place] [address], [place] [address] * (ABNORMAL) POCT Glucose, Fingerstick (11/05/2024 6:26 [...] ruled out. Interpreted by: ??David Vogt DO Bench Boring Machine Operator I personally reviewed the images and [...] ruled out. Interpreted by: David Vogt DO Bench Boring Machine Operator I personally reviewed the images and [...] CARE TEST O [place]UC[place] Performing Organization Address [facility] LAB See Below * (ABNORMAL) POCT Glucose, Fingerstick (11/04/2024 5:00 PM EST) POC Glucose 172(H) 65 - 99 mg/dL 11/04/2024 5:22 PM EST Blood specimen / Unknown 11/04/2024 5:00 PM EST 11/04/2024 5:22 PM EST Dallas Camejo MD POINT OF CARE TEST O [place] Performing Organization Address [facility] LAB See Below * (ABNORMAL) POCT Glucose, Fingerstick (11/04/2024 12:43 PM EST) POC Glucose 167(H) 65 - 99 mg/dL 11/04/2024 12:48 PM EST Blood specimen / Unknown 11/04/2024 12:43 PM EST 11/04/2024 12:48 PM EST Dallas Camejo MD POINT OF CARE TEST O [place] Performing Organization Address [facility] LAB See Below * (ABNORMAL) Complete Blood Count WITHOUT Differential - Early AM (11/04/2024 11:19 AM EST) White Blood Cell Count 13.4(H) 4.0 - 11.0 Thou/uL 11/04/2024 11:38 AM EST [facility] Platelet Count 326 150 - 450 Thou/uL 11/04/2024 11:38 AM EST [facility] Hemoglobin 8.7(L) 13.0 - 17.7 g/dL 11/04/2024 11:38 AM [facility] Hematocrit 28.0(L) 39.0 - 54.0 % 11/04/2024 11:38 AM [facility] Red Blood Cell Count 3.05(L) 4.50 - 6.20 Mil/uL 11/04/2024 11:38 AM [facility] MCV 92 80 - 100 fL 11/04/2024 11:38 AM [facility] MCH 28.5 27.0 - 31.0 pg 11/04/2024 11:38 AM [facility] MCHC 31.1 30.0 - 36.0 g/dL 11/04/2024 11:38 AM [facility] RDW 16.6(H) 11.5 - 14.5 % 11/04/2024 11:38 AM [facility] MPV 9.4 7.5 - 12.5 fL 11/04/2024 11:38 AM [facility] Blood Blood specimen / Unknown 11/04/2024 11:19 AM EST 11/04/2024 11:28 AM EST Renea PATTON [place] [address], [place] [address] * (ABNORMAL) BLOOD CULTURE Peripheral (11/04/2024 11:03 AM EST) Gram stain suggestive of Gram positive cocci in clusters 11/07/2024 10:29 AM [facility] Culture Methicillin Resistant Staph aureus (MRSA) Aerobic bottle positive. Susceptibility of the same isolate identification, from the same apparent body site is only performed once per 5 calendar days. ?See susceptibilities reported on specimen collected 11/02/2024 (A) 11/08/2024 12:21 PM [facility] Microbiology Peripheral blood specimen / Unknown 11/04/2024 11:03 AM EST 11/04/2024 12:35 PM EST Chris Taylor MD LAB AMB MICRO ORDERA BLES [facility] [address] [place] [address], * (ABNORMAL) BLOOD CULTURE Peripheral (11/04/2024 11:03 AM EST) Gram stain suggestive of Gram positive cocci in clusters 11/07/2024 1:43 PM [facility] Culture Methicillin Resistant Staph aureus (MRSA) Aerobic bottle positive. Susceptibility of the same isolate identification, from the same apparent body site is only performed once per 5 calendar days. ?See susceptibilities reported on specimen collected 11/02/2024 (A) 11/08/2024 12:17 PM [facility] Microbiology Peripheral blood specimen / Unknown 11/04/2024 11:03 AM EST 11/04/2024 12:35 PM EST Chris Taylor MD LAB AMB MICRO ORDERA BLES [facility] [address] * (ABNORMAL) Basic Metabolic Panel (Routine) (11/04/2024 10:50 AM EST) Glucose 184(H) 65 - 99 mg/dL 11/04/2024 11:53 AM [facility] Comment:Fasting: <100 mg/dL, Non-Fasting: <200 mg/dL (ADA 2004) Blood Urea Nitrogen (BUN) 48(H) 8 - 21 mg/dL 11/04/2024 11:53 AM [facility] Creatinine 2.0(H) 0.5 - 1.3 mg/dL 11/04/2024 11:53 AM [facility] eGFR 37(L) >59 11/04/2024 11:53 AM [facility] Comment:CKD-EPI (2020) in mL /min/1.73 sq meters. Sodium 130(L) 136 - 145 mmol/L 11/04/2024 11:53 AM [facility] Potassium 3.7 3.4 - 5.3 mmol/L 11/04/2024 11:53 AM [facility] Chloride 95(L) 98 - 107 mmol/L 11/04/2024 11:53 AM [facility] CO2 21(L) 22 - 33 mmol/L 11/04/2024 11:53 AM [facility] Anion Gap 14 7 - 17 11/04/2024 11:53 AM [facility] Calcium 7.7(L) 8.7 - 10.5 mg/dL 11/04/2024 11:53 AM [facility] BUN/Creatinine Ratio 24 10.0 - 25.0 Ratio 11/04/2024 11:53 AM [facility] Blood (Plasma/Serum) 11/04/2024 10:50 AM EST 11/04/2024 11:28 AM EST Juaquin Kern MD [place] [address], [place] [address] * ECHOCARDIOGRAM COMPREHENSIVE (11/04/2024 9:05 AM EST) [...] ?Compared to previous outside study report from [facility] on 08/05/2024, Mitral and tricuspid [...] Compared to previous outside study report from [facility] on 08/05/2024, Mitral and tricuspid [...] [facility] See Below * Prepare RBC's:Prepare [...] BANK PRODUCT O RDERABLES Performing Organization Address [facility] LAB See Below * (ABNORMAL) POCT Glucose, Fingerstick (11/03/2024 9:25 PM EST) POC Glucose 229(H) 65 - 99 mg/dL 11/03/2024 9:26 PM EST Blood specimen / Unknown 11/03/2024 9:25 PM EST 11/03/2024 9:26 PM EST Dallas Camejo MD POINT OF CARE TEST O [place] Performing Organization Address [facility] LAB See Below * (ABNORMAL) POCT Glucose, Fingerstick (11/03/2024 5:50 PM EST) POC Glucose 158(H) 65 - 99 mg/dL 11/03/2024 6:19 PM EST Blood specimen / Unknown 11/03/2024 5:50 PM EST 11/03/2024 6:19 PM EST Dallas Camejo MD POINT OF CARE TEST O [facility]LES Performing Organization Address [facility] LAB See Below * (ABNORMAL) POCT Glucose, Fingerstick (11/03/2024 11:43 AM EST) POC Glucose 153(H) 65 - 99 mg/dL 11/03/2024 11:48 AM EST Blood specimen / Unknown 11/03/2024 11:43 AM EST 11/03/2024 11:48 AM EST Dallas Camejo MD POINT OF CARE TEST O [facility]LES Performing Organization Address [facility] LAB See Below * Creatine Kinase (CK) (11/03/2024 10:52 AM EST) Creatine Kinase (CK) 61 24 - 204 U/L 11/03/2024 11:37 AM EST [facility] Blood (Plasma/Serum) 11/03/2024 10:52 AM EST 11/03/2024 11:10 AM EST Ena Mtz MD LAB BLOOD ORDERA BLES Performing Organization Address [facility]/[place] [address], [place] [address] * (ABNORMAL) POCT Glucose, Fingerstick (11/03/2024 7:56 AM EST) POC Glucose 165(H) 65 - 99 mg/dL 11/03/2024 8:04 AM EST Blood specimen / Unknown 11/03/2024 7:56 AM EST 11/03/2024 8:04 AM EST Dallas Camejo MD POINT OF CARE TEST O RDER[place]LES Performing Organization Address [facility] Co de Phone Number [facility] LAB See Below * MRSA PCR Screen, Qualitative (11/03/2024 3:24 AM EST) MRSA Result Not Detected Not Detected 7:00 AM EST [facility] Comment:Performed by the Xpe rt MRSA NxG Assay X-Specimen 12 Specimen from nose / Unknown 11/03/2024 3:24 AM EST 11/03/2024 5:23 AM EST Kenzie PATTON MICROBIOLOGY - GENE RAL ORDERABLES Performing Organization Address [facility]/[place] [address], [place] [address] * ECG 12 lead (STAT) (11/02/2024 9:34 PM EST) Ventricular rate 70 BPM EKG [facility] Atrial rate 70 BPM EKG [facility] P-R interval 272 ms EKG [facility] QRS duration 202 ms EKG [facility] Q-T interval 510 ms EKG [facility] QTC calculation (Bazett) 551 ms EKG [facility] P axis 81 degrees EKG [facility] R axis 29 degrees EKG [facility] T axis 132 degrees EKG [facility] 11/02/2024 9:34 PM EST Narrative EKG [...] 11/03/2024 4:30:25 PM Kenzie PATTON [facility] * (ABNORMAL) POCT Glucose, Fingerstick (11/02/2024 9:19 PM EST) [facility] POC Glucose 163(H) 65 - 99 mg/dL 11/02/2024 9:20 PM EST Blood specimen / Unknown 11/02/2024 9:19 PM EST 11/02/2024 9:20 PM EST Dallas Camejo MD POINT OF CARE TEST [facility] See Below * (ABNORMAL) Blood Culture ID PCR Panel (11/02/2024 8:00 PM EST) [facility] BC ID PCR Result Summary Enterococcus faecalis Vancomycin resistance gene detected by molecular method. Please refer to detailed susceptibility results when available and suggest consultation with Infectious Diseases for management. 11/03/2024 6:06 PM EST [facility] BC ID PCR Result Summary Enterococcus faecium Vancomycin resistance gene detected by molecular method. Please refer to detailed susceptibility results when available and suggest consultation with Infectious Diseases for management. 11/03/2024 6:06 PM [facility] BC ID PCR Result Summary Methicillin Resistant Staph aureus (MRSA) 11/03/2024 6:06 PM [facility] Methicillin resistance gene mecA/C Detected(A) 11/03/2024 6:06 PM [facility] Vancomycin resistance genes Eugenia/B Detected(A) 11/03/2024 6:06 PM [facility] Enterococcus faecalis Detected(A) 11/03/2024 6:06 PM [facility] Enterococcus faecium Detected(A) 11/03/2024 6:06 PM [facility] Listeria monocytogenes Not Detected 11/03/2024 6:06 PM [facility] Staphylococcus Detected(A) 6:06 PM [facility] Staphylococcus aureus Detected(A) 11/03/2024 6:06 PM [facility] Staphylococcus epidermidis Not Detected 11/03/2024 6:06 PM [facility] Staphylococcus lugdunensis Not Detected 11/03/2024 6:06 PM [facility] Streptococcus Not Detected 6:06 PM [facility] Streptococcus agalactiae Not Detected 11/03/2024 6:06 PM [facility] Streptococcus pneumoniae Not Detected 11/03/2024 6:06 PM [facility] Streptococcus pyogenes Not Detected 11/03/2024 6:06 PM [facility] Acinetobacter calcoaceticus-bauma nnii complex Not Detected 11/03/2024 6:06 PM [facility] Bacteroides fragilis Not Detected 11/03/2024 6:06 PM [facility] Enterobacterales Not Detected 2024 6:06 PM [facility] Enterobacter cloacae complex Not Detected 11/03/2024 6:06 PM [facility] Escherichia coli Not Detected 2024 6:06 PM [facility] Klebsiella aerogenes Not Detected 11/03/2024 6:06 PM [facility] Klebsiella oxytoca Not Detected 01/2025 6:06 PM [facility] Klebsiella pneumoniae group Not Detected 11/03/2024 6:06 PM [facility] Proteus Not Detected 11/03/2024 6:06 PM [facility] Salmonella Not Detected 11/03/2024 6:06 PM [facility] Serratia marcescens Not Detected 01/2025 6:06 PM [facility] Haemophilus influenza Not Detected 11/03/2024 6:06 PM [facility] Neisseria meningitidis Not Detected 11/03/2024 6:06 PM [facility] Pseudomonas aeruginosa Not Detected 11/03/2024 6:06 PM [facility] Stenotrophomonas maltophilia Not Detected 11/03/2024 6:06 PM [facility] Fernanda albicans Not Detected 2024 6:06 PM [facility] Fernanda auris Not Detected 6:06 PM [facility] Fernanda glabrata Not Detected 2024 6:06 PM [facility] Fernanda krusei Not Detected 11/03/19 6:06 PM [facility] Fernanda parapsilosis Not Detected 11/03/2024 6:06 PM [facility] Cryptococcus neoformans/gattii Not Detected 11/03/2024 6:06 PM [facility] PCR ID Comment Antimicrobial resistance can occur via multiple mechanisms. A Not Detected result for antimicrobial resistance gene(s) does not indicate antimicrobial susceptibility. Subculturing is required for species identification and susceptibility testing of isolates. 11/03/2024 6:06 PM [facility] 11/02/2024 8:00 PM EST 11/02/2024 8:29 PM EST Kenzie PATTON MICROBIOLOGY - GENE RAL ORDERABLES [facility] [address] [place] [address], * (ABNORMAL) Erythrocyte Sedimentation Rate (ESR) (11/02/2024 8:00 PM EST) Erythrocyte Sediment Rate (ESR) 79(H) <20 MM/HR 11/02/2024 8:51 PM [facility] Blood specimen / Unknown 11/02/2024 8:00 PM EST 11/02/2024 8:22 PM EST Kenzie Vazquez DC LAB BLOOD ORDERABLE S Performing Organization Address City/[facility]/[place] [address], [place] [address] * (ABNORMAL) C-REACTIVE PROTEIN (11/02/2024 8:00 PM EST) Pathologist [facility] C-Reactive Protein 29.62(H) 0 - 0.49 mg/dL 11/03/2024 12:04 AM [facility] Plasma/Serum 11/02/2024 8:00 PM EST 11/02/2024 8:22 PM EST Kenzie Vazquez POOJA LAB BLOOD ORDERABLE S Performing Organization Address City/State/[place] [address], [place] [address] * (ABNORMAL) BLOOD CULTURE Peripheral (11/02/2024 8:00 PM EST) Pathologist [facility] Gram stain suggestive of Gram positive cocci 11/03/2024 3:55 PM [facility] Culture Methicillin Resistant Staph aureus (MRSA) Aerobic and Anaerobic bottle positive. Complete identification and susceptibility of the same isolate, if appropriate, performed on only one blood culture collection per day. (A) 11/06/2024 12:15 PM [facility] Culture Enterococcus faecalis Aerobic and Anaerobic bottle positive. Complete identification and susceptibility of the same isolate, if appropriate, performed on only one blood culture collection per day. (A) 11/06/2024 12:15 PM [facility] Microbiology Peripheral blood specimen / Unknown 11/02/2024 8:00 PM EST 11/02/2024 8:28 PM EST Kenzie PATTON LAB AMB MICRO ORDER JOSE [facility] [address] [place] [address], * (ABNORMAL) BLOOD CULTURE Peripheral (11/02/2024 8:00 PM EST) Gram stain suggestive of Gram positive cocci 11/03/2024 3:50 PM EST [facility] Culture Methicillin Resistant Staph aureus (MRSA) Aerobic and Anaerobic bottle positive. (A) 11/05/2024 1:52 PM EST [facility] Culture Enterococcus faecalis Aerobic and Anaerobic bottle positive. (A) 11/05/2024 1:52 PM EST [facility] Culture Enterococcus faecium Anaerobic bottle positive. (A) 11/05/2024 1:52 PM EST [facility] [...] [facility] [address] [place] [address], * Vitamin D, 25-Hydroxy (11/02/2024 8:00 PM EST) [facility] Vitamin D, 25-Hydroxy 50 30 - 100 ng/mL 11/02/2024 9:10 PM EST [facility] Blood (Plasma/Serum) 11/02/2024 8:00 PM EST 11/02/2024 8:23 PM EST Kenzie Chandlersadeshyla POOJA LAB BLOOD ORDERABLE S Performing Organization Address City/[facility]/[place] [address], [place] [address] * (ABNORMAL) TRANSFERRIN (11/02/2024 8:00 PM EST) Transferrin 178(L) 200 - 360 mg/dL 11/03/2024 12:04 AM EST [facility] Blood (Plasma/Serum) 11/02/2024 8:00 PM EST 11/02/2024 8:22 PM EST Kenzie Chandlergisselle PATTON LAB BLOOD ORDERABLE S Performing Organization Address [facility]/[place] [address], [place] [address] * (ABNORMAL) Prealbumin (11/02/2024 8:00 PM EST) Prealbumin 7(L) 20 - 40 mg/dL 11/03/2024 12:04 AM EST [facility] Blood (Plasma/Serum) 11/02/2024 8:00 PM EST 11/02/2024 8:22 PM EST Kenzie Chandlersadeshyla POOJA LAB BLOOD ORDERABLE S Performing Organization Address City/[facility]/[place] [address], [address] [address] * (ABNORMAL) Albumin (11/02/2024 8:00 PM EST) Albumin 3.2(L) 3.4 - 4.8 g/dL 11/03/2024 12:04 AM [facility] Blood (Plasma/Serum) 11/02/2024 8:00 PM EST 11/02/2024 8:22 PM EST Sagrario Taylor PATTON LAB BLOOD ORDERABLE S Performing Organization Address City/[facility]/[place] [address], [place] [address] * (ABNORMAL) Protime-INR (Routine) (11/02/2024 8:00 PM EST) Anticoagulant APIXABAN (ELIQUIS) 11/02/2024 6:26 PM EST Prothrombin Time (PT) 14.7(H) 10.0 - 13.5 seconds 11/02/2024 9:05 PM [facility] INR 1.3 11/02/2024 9:05 PM [facility] Comment:INR Therapeutic Rang es: Standard dose anticoagulant 2.0 to 3.0, High dose anticoagulant 2.5-3.5. Blood Plasma specimen / Unknown 11/02/2024 8:00 PM EST 11/02/2024 8:22 PM EST Sagrario Taylor PATTON [place] [address], [place] [address] * (ABNORMAL) Basic Metabolic Panel (STAT) (11/02/2024 8:00 PM EST) Glucose 171(H) 65 - 99 mg/dL 11/03/2024 12:04 AM [facility] Comment:Fasting: <100 mg/dL, Non-Fasting: <200 mg/dL (ADA 2005) Blood Urea Nitrogen (BUN) 41(H) 8 - 21 mg/dL 11/03/2024 12:04 AM [facility] Creatinine 2.0(H) 0.5 - 1.3 mg/dL 11/03/2024 12:04 AM [facility] eGFR 37(L) >59 11/03/2024 12:04 AM [facility] Comment:CKD-EPI (2020) in mL /min/1.73 sq meters. Sodium 130(L) 136 - 145 mmol/L 11/03/2024 12:04 AM [facility] Potassium 4.0 3.4 - 5.3 mmol/L 11/03/2024 12:04 AM [facility] Chloride 92(L) 98 - 107 mmol/L 11/03/2024 12:04 AM [facility] CO2 19(L) 22 - 33 mmol/L 11/03/2024 12:04 AM [facility] Anion Gap 19(H) 7 - 17 11/03/2024 12:04 AM [facility] Calcium 8.5(L) 8.7 - 10.5 mg/dL 11/03/2024 12:04 AM [facility] BUN/Creatinine Ratio 21 10.0 - 25.0 Ratio 11/03/2024 12:04 AM [facility] Blood (Plasma/Serum) 11/02/2024 8:00 PM EST 11/02/2024 8:22 PM EST Kenzie PATTON LAB BLOOD ORDERABLE S Performing Organization Address City/State/[place] [address], [place] [address] * (ABNORMAL) Complete Blood Count WITH Differential - STAT (11/02/2024 8:00 PM EST) White Blood Cell Count 14.3(H) 4.0 - 11.0 Thou/uL 11/02/2024 8:32 PM [facility] Platelet Count 395 150 - 450 Thou/uL 11/02/2024 8:32 PM [facility] Hemoglobin 9.3(L) 13.0 - 17.7 g/dL 11/02/2024 8:32 PM [facility] Hematocrit 29.3(L) 39.0 - 54.0 % 11/02/2024 8:32 PM [facility] Red Blood Cell Count 3.20(L) 4.50 - 6.20 Mil/uL 11/02/2024 8:32 PM [facility] MCV 92 80 - 100 fL 11/02/2024 8:32 PM [facility] MCH 29.1 27.0 - 31.0 pg 11/02/2024 8:32 PM [facility] MCHC 31.7 30.0 - 36.0 g/dL 11/02/2024 8:32 PM [facility] RDW 16.1(H) 11.5 - 14.5 % 11/02/2024 8:32 PM [facility] MPV 9.5 7.5 - 12.5 fL 11/02/2024 8:32 PM [facility] Neutrophils Auto 81.9 % 11/02/19 8:32 PM [facility] Immature Granulocytes 0.6 % 11/02/2024 8:32 PM [facility] Lymphocytes Auto 4.8 % 11/02/19 8:32 PM [facility] Monocytes Auto 12.2 % 11/02/2024 8:32 PM [facility] Eosinophils Auto 0.1 % 11/02/19 8:32 PM [facility] Basophils Auto 0.4 % 11/02/2024 8:32 PM [facility] Abs Neutrophils Auto 11.67(H) 2.00 - 7.50 Thou/uL 11/02/2024 8:32 PM [facility] Abs Immature Granulocytes 0.08 0.00 - 0.10 Thou/uL 11/02/2024 8:32 PM [facility] Abs Lymphocytes Auto 0.69(L) 1.50 - 4.50 Thou/uL 11/02/2024 8:32 PM [facility] Abs Monocytes Auto 1.74(H) 0.20 - 1.50 Thou/uL 11/02/2024 8:32 PM [facility] Abs Eosinophils Auto 0.02 0.00 - 0.70 Thou/uL 11/02/2024 8:32 PM [facility] Abs Basophils Auto 0.05 0.00 - 0.20 Thou/uL 11/02/2024 8:32 PM [facility] Blood Blood specimen / Unknown 11/02/2024 8:00 PM EST 11/02/2024 8:22 PM EST Kenzie PATTON [place] [address], [address] [address] * Type and Screen (11/02/2024 7:56 PM EST) ABO/Rh A POSITIVE 11/02/2024 10:22 PM [facility] Antibody Screen NEGATIVE 11/02/2024 10:22 PM [facility] Specimen Expiration 11/05/2024 11/02/2024 10:22 PM [facility] Unit Number [id number] 11/04/2024 6:58 AM [facility] Blood Component Type LEUKOREDUCED RED CELLS 11/04/2024 6:58 AM [facility] Unit Division 00 11/04/2024 6:58 AM [facility] Unit Status REL FROM ALLOC 9:33 PM [facility] Transfusion Status OK TO TRANSFUSE 11/04/2024 6:58 AM [facility] Crossmatch Result Electronically Compatible 11/04/2024 6:58 AM [facility] Unit Number [id number] 11/04/2024 6:58 AM [facility] Blood Component Type LEUKOREDUCED RED CELLS 11/04/2024 6:58 AM [facility] Unit Division 00 11/04/2024 6:58 AM [facility] Unit Status REL FROM ALLOC 9:33 PM [facility] Transfusion Status OK TO TRANSFUSE 11/04/2024 6:58 AM [facility] Crossmatch Result Electronically Compatible 11/04/2024 6:58 AM [facility] Blood Blood specimen / Unknown 11/02/2024 7:56 PM EST 11/02/2024 8:51 PM EST Comment:Blood Kenzie PATTON BLOOD BANK TEST ORD ERABLES HOSPITAL LAB See Below [address] [address] * (ABNORMAL) POCT Glucose, Fingerstick (11/02/2024 6:48 [...] chew, or split tablet., On hold since Fri11/11/2024 at 0840 until manually unheld Given 11/10/2024 [...] approved indications of use of aztreonam at [facility]. Please use Other to document an indication not listed (ID provider approval will be required). Treatment of MDR organisms, All antimicrobials used at [facility] require an indication. Please complete the following [...] 2 mg 2 mg, Intravenous, Once, On Fri11/07/24 at 1030, For 1 dose, Hold for [...] times daily with meals, First dose on 11/06/24 at 0800, Calcium Citrate 950 mg = [...] approved indication of use for ceftaroline at [facility]. ID provider approval is also required. Salvage [...] 11/18/24 at 1130, All antimicrobials used at [facility] require an indication. Please complete the following [...] CHG application Topical, Daily, First dose on 11/08/24 at 2000, Each pack = 6 wipes. [...] dose (after last modification) on 11/06/24 at 1400 Given 11/06/2024 2:38 PM EST [...] to moderately severe pain 4-6, Starting on [facility] 11/06/24 at 1222, For 12 days 2 hours [...] Subcutaneous, Nightly and 0200, First dose on 11/02/24 at 2100, DO NOT HOLD IF NPO [...] 1-4 Units, Subcutaneous, Nightly, First dose on 11/07/24 at 2100, DO NOT HOLD IF NPO [...] Every 4 hours scheduled, First dose on Fri11/11/24 at 1200, DO NOT HOLD IF NPO [...] (ATIVAN) injection 0.5 mg 0.5 mg, Intravenous, fisher scallop, On Fri11/12/24 at 1300, For 1 dose, [...] Intravenous, Administer over 60 Minutes, Once, On Fri11/08/24 at 2000, For 1 dose New Bag [...] Intravenous, Administer over 60 Minutes, Once, On Fri11/13/24 at 1100, For 1 dose New Bag [...] approved indications of use for meropenem at [facility]. Please use Other to document an indication [...] 2 mg 2 mg, Intravenous, Once, On Fri11/08/24 at 1630, For 1 dose, For IV [...] 20 mEq 20 mEq, Oral, Once, On 11/08/24 at 2000, For 1 dose, Swallow tablets [...] 20 mEq 20 mEq, Oral, Once, On 11/09/24 at 0400, For 1 dose, Swallow tablets [...] 20 mEq 20 mEq, Oral, Once, On [place] 11/11/24 at 0430, For 1 dose, Swallow tablets [...] 40 mEq 40 mEq, Oral, Once, On [place] 11/21/24 at 1230, For 1 dose, Swallow [...] ADS Override Pull Starting on Fri11/02/24 at 2139, For 1 dose, Belkys Diaz: cabinet override [...] IVPB 2000 mg in 500 mL NS (HH-premix) 2,000 mg, Intravenous, Administer over 120 Minutes, Once, On Fri11/02/24 at 2030, For 1 dose, All antimicrobials used at [facility] require an indication. Please complete the following [...] tablet. 0852 (Given - Provider: Nelson Iqbal RN)210 (Given - Provider: Marisel Wray RN) 0815 [...] Nelson Iqbal RN) 0814 (Given - Provider: Mietsh Caldwell RN)1753 (Given - Provider: Page Montemayor RN) 0935 (Given - Provider: Mitesh Caldwell RN)1700 (Not Given - Provider: Mitesh Caldwell RN - Reason: Patient/family refused) cefTRIAXone (ROCEPHIN) 2 g in sodium chloride-MBP (NS) 100 mL IVPB-MBP 2 g, Intravenous, at 200 mL/hr, Every 24 hours, First dose on [place] 11/18/24 at 1130, All antimicrobials used at [facility] require an indication. Please complete the following [...] Iqbal RN) 0814 (Given - Provider: Mitesh Caldwell, RN) 0934 (Given - Provider: Mitesh Caldwell, JOSUE) cyanocobalamin (VITAMIN B-12) tablet 2,500 mcg 2,500 mcg, Oral, Daily, First dose on Fri11/02/24 at 1900 0852 (Given - Provider: Nelson Iqbal RN) 0814 (Given - Provider: Mitesh Caldwell, JOSUE) 0932 (Given - Provider: Mitesh Caldwell RN) [...] 0935 (Given - Provider: Mitesh Caldwell, JOSUE) empagliflozin (JARDIANCE) 25 mg 25 mg, Oral, Daily, First dose on Fri11/03/24 at 0900 0853 (Given - Provider: Nelson Iqbal RN) 0816 (Given - Provider: Mitesh Caldwell, JOSUE) 0935 (Given - Provider: Mitesh Caldwell, JOSUE) erythromycin (ILOTYCIN) ophthalmic ointment 1 application(s) 1 [...] HOLD IF NPO 0901 (Given - Provider: Lee Vining A Brioche, RN)1245 (Given - Provider: Nelson Iqbal RN)1729 [...] on Fri11/03/24 at 0900, On hold since 11/03/2024 at 0850 until manually unheld 09 (Hold [...] Page Montemayor RN)2108 (Given - Provider: Agnieszka Torrez, JOSUE) 0935 (Given - Provider: Mitesh Caldwell RN)1233 (Given - Provider: Mitesh Caldwell RN) senna-docusate (SENNA-S) 8.6-50 MG tablet 2 tablet 2 tablet, Oral, 2 times daily, First dose on Fri11/05/24 at 2100 0853 (Given - Provider: Nelson Iqbal RN)2112 (Given - Provider: Marisel Wray, JOSUE) 0814 (Given - Provider: Mitesh Caldwell, JOSUE)2109 (Given - Provider: Agnieszka Torrez RN) 0936 [...] documented as of this encounter Care Teams Rigger Apprentice Relationship Specialty Start Date End Date Lee Fabian MD [address] [place] [address] PCP - General Internal Medicine 09/02/24 Vitaliy Fields MD [address] [address] Cardiovascular Disease 09/02/24 Dallas Camejo MD [address] [place] [address] Surgery, Orthopedic 09/02/24 Rolando Lopez MD [address] - Ph 14 [place] [address] Physician Nephrology 09/02/24 Cesar Fair MD 85 [facility] 9[address] [place] [address] Surgery, Cardiac 11/08/24 Daisy Her, PT 85 [facility] [address] [place] [address] Nuclear Medicine TechFire Management Specialist Medicine and Rehabilitation 11/18/24 documented as of this encounter
--- OUTSIDE RECORDS SUMMARY | 2024-12-03 15:22 | XMS_ITS | Encounter Summary ---
Author Organization [facility] Address [address] [place] [address] Care Team Providers Care Ccu Nurse Name Role Phone Lee Fabian MD Primary Care Provider [phone] Vitaliy Fields MD Unavailable [phone] Dallas Camejo MD Unavailable [phone] Rolando Lopez MD Unavailable Cesar Fair MD Unavailable [phone] Daisy Her PT Unavailable [phone] Encounter Details Date Type Department Care Team (Late st Contact Info) Description 12/01/2024 Orders Only [facility] [address] [place] [address] Dallas Camejo MD [address] [place] [address] Below-knee amputation of left lower extremity, initial encounter (HCC) (Primary Dx) Social History Tobacco Use Types Packs/Day Years Used Date Smoking Tobacco: Former Cigarettes 1 29.2 1 977 - 2004 Smokeless Tobacco: Never Alcohol Use Standard Drinks/Week Comments Yes 21 (1 standard drink = 0.6 oz pu re alcohol) [facility] Utilities Answer Date Recorded In the past 12 months has th e [employer], gas, oil, or water company threatened to [...] any time in the past 12 m [facility], were you homeless or living in [...] 1:30 PM EDT Appointment [facility] Heart & Vascular [place] - Electrophysiology [address] [place] [address] Gretel Hinds, CUSTOMER EXPERIENCE SPECIALIST [address] [id number] 12/14/2024 2:00 PM EDT Office Visit [facility] [place] [address] [address] Dallas Camejo MD 7 [place] [address] 12/16/2024 8:30 AM EDT Office Visit [facility] Infectious Disease [address] [place] [phone] Ena Mtz MD 132 [place], [place] [phone] documented as of this encounter Visit Diagnoses Diagnosis Below-knee amputation of left lower extremity, initial encounter (HCC)- Primary documented in this encounter Care Teams Ccu Nurse Relationship Specialty Start Date End Date Lee Fabian MD [address] [place] [address] PCP - General Internal Medicine 09/02/24 Vitaliy Fields MD [address] [address] Cardiovascular Disease 09/02/24 Dallas Camejo MD [address] [place] [address] Surgery, Orthopedic 09/02/24 Rolando Lopez MD [address] Transplant - 14 [place] [address] Physician Nephrology 09/02/24 Cesar Fair MD 85 [facility] 919 [place], [place] [phone] Surgery, Cardiac 11/08/24 Daisy Her, PT 85 [facility] 609 [place], [place] [phone] Lining FolderContract Specialist Medicine and Rehabilitation 11/18/24 documented as of this encounter
--- OUTSIDE RECORDS SUMMARY | 2024-12-03 15:22 | XMS_ITS | Clinical Summary ---
Author Organization [facility] Address [address] [facility] [address] [place] [address] Phone Care Team Providers Care Product Strategy Director Name Role Phone Lee Fabian MD Primary Care Provider [phone] Allergies Active Allergy Reactions Criticality Noted Date [...] Visit [facility] [address] [address] Rolando Lopez MD [address] [address] Health Maintenance Due Date Last Done Comments [...] patient's age to complete this topic Insurance [facility] AD[facility] PPO ([id number]) [facility] ADV PPO ([id number]) Care Teams Product Strategy Director Relationship Specialty Start Date End Date Lee Fabian MD PCP - General Internal Medicine 01/21/24
--- OUTSIDE RECORDS SUMMARY | 2024-12-03 15:22 | XMS_ITS | Encounter Summary ---
Author Organization [facility] Address [address] [place] [address] Care Team Providers Care Damage Prevention Coordinator Name Role Phone Lee Fabian MD Primary Care Provider Vitaliy Fields MD Unavailable Dallas Camejo MD Unavailable Rolando Lopez MD Unavailable [phone] Reason for Visit * Auth/Cert Specialty Diagnoses / Procedures Referred By London sewell Referred To Contact Diagnoses left ankle infection Procedures N/A Referral ID Status Reason Start Date Expiration Date Visits Re quested Visits Authorized [id number] 1 1 Encounter Details Date Type Department Care Team (Late st Contact Info) Description 11/05/2024 1:32 PM EST Anesthesia Event [facility] [place] at [address] [phone] Juaquin Rueda MD [address] [place] [address] Glo Ngo PA-C [address] [place] [address] [address] [place] [address] Anesthesia Record Procedure Summary Procedure Name Responsible [...] Mario Bhatt RN PIV-Single luman 11/03/24; 2100; [facility] vein (lateral side of arm), left; xrcs-rjd-bwtbjz catheter system; 22 gauge, 1 in length, 3/4 in length; ultrasound guidance; 0; 11/08/24; 0000 11/03/24 2100 by Adama Ricci RN 11/08/24 0000 by Anna Martinez RN Airway-Oral/AUDIT ASSOCIATE 11/05/24; 1408 (crea adrián via procedure documentation); [...] drink = 0.6 oz pu re alcohol) [facility] Utilities Answer Date Recorded In the past 12 months has th e [employer], gas, oil, or water company threatened to [...] time in the past 12 m [facility], were you homeless or living in a intermediate (including now)? No 11/03/2024 Sex and Gender [...] Patient pre-procedure mental status: anesthetized Single lumen xrmb-mcz-haezlv catheter system, 20 g, 1/2 in length, [...] Compared to previous outside study report from [facility] on 08/05/2024, Mitral and tricuspid regurgitation [...] WOUND VAC; Surgeon: Dallas Camejo MD; [facility]; Service: Orthopaedics; Laterality: Left; FOOT SURGERY [...] 9 bpm Confirmed by MD Danya, Deep ([id number]) on 11/03/2024 4:30:25 PM NPO Status: Anesthesia [...] Description 12/07/2024 1:30 PM EDT Appointment [facility] Heart & Vascular [place] - Electrophysiology [address] [place] [phone] Gretel Hinds, MOLD INSERT CHANGER [address] [phone] 12/14/2024 2:00 PM EDT [facility] [place] [phone] Dallas Camejo MD [address] [place], [place] [phone] 12/16/2024 8:30 AM EDT Office Visit [facility] Infectious Disease [address] [place] [address] Ena tMz MD [address] [place] [address] documented as of this encounter Procedures Procedure [...] Patient pre-procedure mental status: anesthetized Single lumen zype-yww-zaazff catheter system, 20 g, 1/2 in length, in right hand Insertion attempts: 1 Juaquin Rueda MD AL ANESTHESIA * ANES INTUBATION (11/05/2024 2:07 PM [...] baseline Complications: no complications Juaquin Rueda MD AL ANESTHESIA documented in this encounter Visit Diagnoses [...] documented as of this encounter Care Teams Damage Prevention Coordinator Relationship Specialty Start Date End Date Lee Fabian MD [address] [place] [address] PCP - General Internal Medicine 09/02/24 Vitaliy Fields MD [address] [address] Cardiovascular Disease 09/02/24 Dallas Camejo MD 7 [place] [address] Surgery, Orthopedic 09/02/24 Rolando Lopez MD [address] Transplant - Ph 14 [place] [address] Physician Nephrology 09/02/24 documented as of this encounter
--- OUTSIDE RECORDS SUMMARY | 2024-12-03 15:23 | XMS_ITS | Encounter Summary ---
Author Organization [facility] Address [address] [place] [address] Care Team Providers Care Professional Organizer Name Role Phone Lee Fabian MD Primary Care Provider Vitaliy Fields MD Unavailable [phone] [place] Camejo MD Unavailable Rolando Lopez MD Unavailable Cesar Fair MD Unavailable Reason for Visit * Auth/Cert Specialty Diagnoses / Procedures Referred By Contac t Referred To Contact Diagnoses left ankle infection Procedures N/A Referral ID Status Reason Start Date Expiration Date Visits Re quested Visits Authorized [id number] 1 1 Encounter Details Date Type Department Care Team (Latest Contact Info) Description 11/11/2024 2:09 PM EST Anesthesia Event [facility] V[facility] [place] [facility] - Echocardiography Laboratory [address] [place] [phone] Hong Nance MD [address] [place] [address] Anesthesia Record Procedure Summary Procedure Name [...] by Alaina Charlton RN 11/12/24 1528 by iGlda May RN Incision (Adult, Obstetrics, Pediatrics) 09/15/24; 1153; Right; groin; dermabond; 11/12/24; 1529 09/15/24 1153 by Mikhail House RN 11/12/24 1529 by Gilda May, RN PIV-Single luman 11/08/24; 0029; cephalic vein (lateral side of arm), right; wmjt-ogf-sukzwf catheter system; 20 gauge (1.25 ); ultrasound [...] drink = 0.6 oz pu re alcohol) [facility] Utilities Answer Date Recorded In the past 12 months has [employer], gas, oil, or water [employer] threatened to shut off services in your [...] Procedure Summary Date: 11/11/24 Room / Location: [facility] Heart [facility] [place] [facility] - Echocardiography Laboratory Anesthesia Start: 1409 [...] [facility]; Service: Orthopaedics; Laterality: Left; ??? AORTOGRAM- ABDOMINAL Left 09/15/2024 Procedure: LEFT LOWER EXTREMITY ANGIOGRAM; Surgeon: Delbert Mcintosh MD; Location: [facility]; Service: Peripheral Vascular; Laterality: Left; ??? BARIATRIC SURGERY 2018 ??? CARDIAC ELECTROPHYSIOLOGY STUDY AND ABLATION x5 ??? CARDIAC PACEMAKER PLACEMENT 2015 ??? CARDIAC SURGERY 2020 watchman device ??? CARDIOVERSION 07/2024 ??? CC PERIPHERAL ANGIOGRAPHY Left 07/2024 LE ??? CHANGE DRESSING WOUND VAC Left 09/10/2024 Procedure: APPLICATION OF WOUND VAC; Surgeon: [place] Camejo MD; Location: [facility]; Service: Orthopaedics; Laterality: Left; ??? FOOT SURGERY [...] bpm Confirmed by MD Claude, [facility] ([id number]) on 11/07/2024 6:25:53 PM NPO Status: Date of Last Liquid Consumption: 11/05/24 Date of Last Solid Consumption: 11/04/24 Time of Last Solid Consumption: 1800 Anesthesia Plan ASA Score: ASA 4 Consent: The anesthetic plan and associated risks was discussed with patient. The use of blood products was discussed with whom consented to blood products. Anesthesia Plan: MAC student education specialist Note I personally evaluated and examined the patient prior to the intra-operative phase of care. Hong Nance MD documented in this encounter Plan of Treatment Upcoming Encounters Date Type Department Care Team (Late st Contact Info) Description 12/07/2024 1:30 PM EDT Appointment [facility] Heart & Vascular [place] - Electrophysiology [address] [place] [phone] Gretel Hinds, BUS BOY [address] [address] 12/14/2024 2:00 PM EDT [facility] [address] [address] [place] Camejo MD [address] [place] [address] 12/16/2024 8:30 AM EDT Office Visit [facility] Infectious Disease [address] [place] [phone] Ena Mtz MD [address] [place], [place] [phone] documented as of this encounter Visit Diagnoses [...] documented as of this encounter Care Teams Professional Organizer Relationship Specialty Start Date End Date Lee Fabian MD [address] [place] [address] PCP - General Internal Medicine 09/02/24 Vitaliy Fields MD [address] [place] [address] Cardiovascular Disease 09/02/24 [place] Camejo MD [address] [place] [address] Surgery, Orthopedic 09/02/24 Rolando Lopez MD [address] Transplant - Ph [address] [place] [address] Physician Nephrology 09/02/24 Cesar Fair MD [address] [address] Surgery, Cardiac 11/08/24 documented as of this encounter
--- OUTSIDE RECORDS SUMMARY | 2024-12-03 15:23 | XMS_ITS | Encounter Summary ---
Author Organization [facility] Address [address] [place] [address] Care Team Providers Care Vulnerability Assessment Analyst Name Role Phone Lee Fabian MD Primary Care Provider [phone] Vitaliy Fields MD Unavailable [phone] [place] Camejo MD Unavailable [phone] Rolando Lopez MD Unavailable [phone] Encounter Details Date Type Department Care Team (Latest Contact Info) Description 11/04/2024 Travel Social History Tobacco Use Types Packs/Day Years Used Date Smoking Tobacco: Former Cigarettes 1 29.2 1 977 - 2004 Smokeless Tobacco: Never Alcohol Use Standard Drinks/Week Comments Yes 21 (1 standard drink = 0.6 oz pu re alcohol) [facility] Utilities Answer Date Recorded In the past 12 months has [employer], oil, or water [employer] threatened to shut off services in your [...] any time in the past 12 m [facility], were you homeless or living [...] Info) Description 12/07/2024 1:30 PM EDT Appointment [facility] Heart & Vascular [place] - Electrophysiology [address] [place] [phone] Gretel Hinds, [employer] WREST[employer]ER [address] [phone] 12/14/2024 2:00 PM EDT [facility] [place] [phone] [place] Camejo MD [address] [place], [place] [phone] 12/16/2024 8:30 AM EDT Office Visit [facility] Infectious Disease 132 [place] [phone] Ena Mtz MD [address] [place], [place] [phone] documented as of this encounter Visit Diagnoses Not on filedocumented in this encounter 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
--- OUTSIDE RECORDS SUMMARY | 2024-12-03 15:23 | XMS_ITS | Encounter Summary ---
Author Organization [facility] Address [address] [place] [address] Care Team Providers Care Pest Control Worker Name Role Phone Lee Fabian MD Primary Care Provider Vitaliy Fields MD Unavailable [phone] [place] Camejo MD Unavailable Rolando Lopez MD Unavailable Cesar Fair MD Unavailable [phone] Reason for Visit * Auth/Cert Specialty Diagnoses / Procedures Referred By Contac t Referred To Contact Diagnoses left ankle infection Procedures N/A Referral ID Status Reason Start Date Expiration Date Visits Re quested Visits Authorized [id number] 1 1 Encounter Details Date Type Department Care Team (Late st Contact Info) Description 11/17/2024 2:20 PM EST Anesthesia Event [facility] Peri[facility] Services [address] [place] [phone] Guido Malagon MD [address] [address] Marlin Miner PA-C 99 [facility] [place] [address] Anesthesia Record Procedure Summary Procedure Name Responsible Anesthesiologist Anesthesia Start Time Anesthesia Stop Time Extraction lead(s) laser from dual PM system; 86265 (Left) Guido Person MD 11/17/24 1420 11/17/24 [...] alic vein (lateral side of arm), left; wojb-wps-enpngf catheter system; 22 gauge, 1 in length, 3/4 in length; ultrasound guidance; distraction, tolerated well, appears comfortable; 11/22/24; 1227 11/12/24 1210 by Rosanne Card RN 11/22/24 1227 by Nelson Iqbal RN PIV-Single luman 11/12/24; 1744; medi an vein (underside of arm), right; osrd-cnp-ksanya catheter system; 22 gauge, 1 in length; [...] 0.6 oz pu re alcohol) [facility] Utilities Answer Date Recorded In the past 12 months has th e [employer], gas, oil, or water [employer] threatened to shut off services in your [...] any time in the past 12 m [facility], were you homeless or living in a half-way (including now)? No 11/03/2024 Sex and Gender [...] Procedure Summary Date: 11/17/24 Room / Location: [address] Main OR Anesthesia Start: 1420 Anesthesia Stop: 1653 Procedures: Extraction lead(s) laser from dual PM system; 12017 (Left) Micra Leadless Pacemaker Insert/Replacement; 77733 Diagnosis: Pacemaker infection, subsequent encounter (Pacemaker infection, subsequent encounter [T82.7XXD]) Surgeons: uRi Pabon MD Responsible Provider: Guido Person MD [...] Extraction lead(s) laser from dual PM system; 56842, Left Micra Leadless Pacemaker Insert/Replacement; 14421, N/A Pre-operative Diagnosis: Pacemaker infection, subsequent encounter [...] KNEE AMPUTATION; Surgeon: [place] Camejo MD; Location: [facility] OR; Service: Orthopaedics; Laterality: Left; AORTOGRAM- ABDOMINAL Left 09/15/2024 Procedure: LEFT LOWER EXTREMITY ANGIOGRAM; Surgeon: Delbert Mcintosh MD; Location: [facility] OR; Service: Peripheral Vascular; Laterality: Left; BARIATRIC SURGERY 2018 CARDIAC ELECTROPHYSIOLOGY STUDY AND ABLATION x5 CARDIAC PACEMAKER PLACEMENT 2016 CARDIAC SURGERY 2020 watchman device CARDIOVERSION 07/2024 CC PERIPHERAL ANGIOGRAPHY Left 07/2024 LE CHANGE DRESSING WOUND VAC Left 09/10/2024 Procedure: APPLICATION OF WOUND VAC; Surgeon: [place] Camejo MD; Location: [facility]; Service: Orthopaedics; Laterality: Left; FOOT SURGERY Right x5 INCISION AND DRAINAGE FOOT Left OH PROCEDURE MAZE AFIB OSTECTOMY CALCANEOUS Left 09/10/2024 Procedure: ANKLE PARTIAL CALCANECTOMY; Surgeon: [place] Camejo MD; Location: [facility]; Service: Orthopaedics; Laterality: Left; wOUND PARTIALLY CLOSED [...] by 8 bpm Confirmed by MD Claude, [facility] ([id number]) on 11/07/2024 6:25:53 PM NPO [...] Appointment [facility] Heart & Vascular [place] - Electrophysiology [address] [place] [phone] Gretel Hinds, STOCK RAISER [address] [address] 12/14/2024 2:00 PM EDT [facility] [address] [place] [address] [place] Camejo MD [address] [place] [address] 12/16/2024 8:30 AM EDT Office Visit [facility] Infectious Disease [address] [place] [phone] Ena Mtz MD [address] [place] [address] documented as of this encounter [...] Post-procedure: stablization device applied Marlin Miner PA-C [place] [facility] documented in this encounter Visit Diagnoses [...] documented as of this encounter Care Teams Pest Control Worker Relationship Specialty Start Date End Date Lee Fabian MD [address] [place] [address] PCP - General Internal Medicine 09/02/24 Vitaliy Fields MD [address] [address] Cardiovascular Disease 09/02/24 Dallsa Camejo MD [address] [place] [address] Surgery, Orthopedic 09/02/24 Rolando Lopez MD [address] Transplant - Ph [address] [place] [address] Physician Nephrology 09/02/24 Cesar Fair MD 85 [facility] [address] [place] [address] Surgery, Cardiac 11/08/24 documented as of this encounter
--- OUTSIDE RECORDS SUMMARY | 2024-12-03 15:23 | XMS_ITS | Encounter Summary ---
Author Organization [facility] Address [address] [place] [address] Care Team Providers Care Overnight Cashier Name Role Phone Lee Fabian MD Primary Care Provider Vitaliy Fields MD Unavailable [phone] Dallas Camejo MD Unavailable [phone] Rolando Lopez MD Unavailable [phone] Reason for Visit * Auth/Cert Specialty Diagnoses / Procedures Referred By [place] t Referred To Contact Diagnoses left ankle infection Procedures N/A Referral ID Status Reason Start Date Expiration Date Visits Re quested Visits Authorized [id number] 1 1 Encounter Details Date Type Department Care Team (Late st Contact Info) Description 11/05/2024 12:52 PM EST - 11/05/2024 3:28 PM EST Surgery formerly [facility] at [address] [phone] Dallas Camejo MD [address] [place] [id number] LEFT BELOW KNEE AMPUTATION Social History Tobacco Use Types Packs/Day Years Used Date Smoking Tobacco: Former Cigarettes 1 29.2 1 977 - 2003 Smokeless Tobacco: Never Alcohol Use Standard Drinks/Week Comments Yes 21 (1 standard drink = 0.6 oz pu re alcohol) [facility] Utilities Answer Date Recorded In the [...] any time in the past 12 m [facility], were you homeless or living [...] MD (Surgery, Cardiac) Daisy Her PT as Proof Passer (Physical Medicine and Rehabilitation) PRIMARY DISCHARGE DIAGNOSIS [...] regurgitation (POA: Unknown) Resolved Problems: DISCHARGE DISPOSITION [facility] Facility Code Status Procedures Full code . [...] mg total) by mouth every morning. FreeStyle Wallcae 3 Sensor Misc INJECT 1 DEVICE INTO [...] Routine Referral Type: Home Health Referral Location: [facility] [...] Department Center 12/07/2024 1:30 PM ROOM, ICD/PACER/LOOP [facility] ARRHY [facility] Arrhythmi 12/15/2024 10:45 AM Alba Ramos MD [id number] PM&r 12/16/2024 8:30 AM Ena Mtz MD [...] PAD, RLS and CKD3 that presents to [facility] inpatient floor as a direct admit under [...] while on IV antibiotics. Fax results to [phone] 4. Patient will need to be scheduled [...] Case IDs Date Procedure Surgeon Location Status [id number] 11/05/24 LEFT BELOW KNEE AMPUTATION Dallas Camejo MD [facility] OR Comp [id number] 11/17/24 Extraction lead(s) laser from dual PM system; [id number] Rui Pabon MD Main OR Comp [id number] 11/19/24 CVC INSERT (TUNNEL)W/O PORT > 5 [...] Device Extraction Discharge Instructions Important phone numbers: Stone Hand/Surgeon???s office: [phone] (8am-4:30pm Fri - Friday Our answering service [...] If it does not stop, go to [facility] ER or walk-in center. If you experience any of the above, call your surgeon/sap architect???s office immediately. If still present, remove the [...] Report any of these symptoms to your sap architect. Call your primary translator interpreter if you experience any of the following: [...] Discharge Instructions Important phone numbers: [facility]: [phone] (8am-4:30pm Fri-Friday) Stone Hand/Surgeon???s office: [phone] (8am-4:30pm Fri -Friday) Our answering service is [...] experience any of the above, call your sap architect???s office immediately It is normal to have [...] dental procedure. You should call your primary translator interpreter if you experience any of the following: [...] when you get home. If your primary translator interpreter???s office will monitor your pacemaker, please call [...] Continuous Glucose Sensor (FreeStyle Wallace [address]) [facility] INJECT 1 DEVICE INTO THE SKIN EVERY [...] Juany Ospina RN - 11/25/2024 7:51 PM Travis: Nurse Navigator Note 11/26/24 1210 Transition Call [...] Plan Plan Home w/family and [facility] Patient/Family in Agreement with Plan yes Final Discharge Disposition Code 06 - home with home health care Final Case Management Care Plan Note Summary: Per provider, patient is medically ready to transition home with services. Confirmed that patient is able to obtain medications/food/necessities post discharge. Patient now refusing HSC (LTACH) and returning home with son, [facility] for IV abx and [facility]. Final Destination: Home with son and [facility] Plan for home support/Caregiver/responsible person: Son and [facility] Follow-up provider appointment: Per AVS/W-10 Equipment Ordered [...] level of independence with self-care tasks. Current [facility] Daily Activity Score: 18 Precautions/Restrictions: aspiration, [...] in recliner, in NAD on RA, agreeable. Cryptographic Clerk + limb protector donned to LLE Pain Assessment Pre/Posttreatment Pain Comment denied pain Coping Observed Emotional State calm;cooperative Safety Safety WDL WDL Progressive Mobility Progressive Mobility Level Achieved Transferring to Chair [facility] Daily Activity Putting on and taking off Lower Body Clothing? 3 Bathing (including washing/rinsing/drying)? 2 Toileting (includes using toilet, bedpan, or urinal)? 2 Putting on and taking off upper body clothing? 3 Taking care of personal grooming such as brushing teeth? 4 Eating meals? 4 [facility] Daily Activity Score 18 Progress Summary (OT) Progress Toward Functional Goals (OT) progress toward functional goals is good Sign: Christen Tapia OT * Aditi Jones PA-C - 11/25/2024 11:50 AM EST PHYSICAL MEDICINE & REHABILITATION CONSULT FOLLOW-UP NOTE Patients Name: Blas Genao : 1960 MR Number: [id number] Reason for Consultation: Amputee rehab needs Date [...] support, tolerance to therapy and plan for director long term care antibiotics. He mayhave ability [...] 2,000 Units 2,000 Units Oral Daily Corbin Lmab APRN 2,000 Units at 11/25/24 0934 cyanocobalamin [...] injection 5,000 Units 5,000 Units Subcutaneous Q8H [facility] Gianluca Calles MD 5,000 Units at 11/25/24 0931 insulin glargine (LANtus/SEMGLEE) 100 units/mL injection 10 Units 10 Units Subcutaneous Daily Corbin Lamb APRN 10 Units at 11/25/24 0933 insulin lispro (HumaLOG/ADMELOG) 100 units/mL injection 1-6 Units 1-6 Units Subcutaneous TID with meals Corbin Lealese, PRINTING PRESS MACHINIST 1 Units at 11/25/24 0900 insulin lispro (HumaLOG/ADMELOG) 100 units/mL injection 3 Units 3 Units Subcutaneous TID with mealsNicola Adonis, PRINTING PRESS MACHINIST 3 Units at 11/25/24 0905 ipratropium-albuterol (DUONEB) 0.5-2.5 mg/3 mL nebulizer solution 3 mL 3 mL Nebulization Q2H PRN Corbindenise Lamb, PRINTING PRESS MACHINIST 3 mL at 11/07/24 1025 lactulose (ENULOSE) 10 gm/15 mL solution 20 g 20 g Oral Q4H PRN Corbindenise Lamb, PRINTING PRESS MACHINIST melatonin tablet 3 mg 3 mg Oral Nightly PRN Corbindenise Lamb, PRINTING PRESS MACHINIST 3 mg at 11/19/24 2222 methocarbamol (ROBAXIN) tablet 1,000 mg 1,000 mg Oral 4x Daily Corbin Adonis, PRINTING PRESS MACHINIST 1,000 mg at 11/25/24 0934 metoPROLOL TARTRATE (LOPRESSOR) tablet 50 mg 50 mg Oral BID Corbin Adonis, PRINTING PRESS MACHINIST 50 mg at 11/25/24 0935 multivitamin with minerals tablet 1 tablet 1 tablet Oral Daily Corbin Adonis, PRINTING PRESS MACHINIST 1 tablet at 11/25/24 0935 naloxone (NARCAN) 0.4 mg/mL injection 0.4 mg 0.4 mg Intravenous Q5 Min PRN Corbin Adonis, PRINTING PRESS MACHINIST naloxone (NARCAN) 0.4 mg/mL injection 0.4 mg 0.4 mg Intravenous Q5 Min PRN Corbin Adonis, PRINTING PRESS MACHINIST nicotine (NICODERM CQ) 21 MG/24HR patch 1 patch 1 patch Transdermal Daily Corbin Adonis, PRINTING PRESS MACHINIST 1 patch at 11/25/24 0930 ondansetron (ZOFRAN) injection 4 mg 4 mg Intravenous Q6H PRN Corbin Adonis, PRINTING PRESS MACHINIST 4 mg at 11/17/24 1639 PANTOprazole (PROTONIX) EC tablet 40 mg 40 mg Oral Daily Corbin Adonis, PRINTING PRESS MACHINIST 40 mg at 11/25/24 0935 polyethylene glycol (miraLAx) packet 17 g 17 g Oral Daily Corbin Adonis, PRINTING PRESS MACHINIST 17 g at 11/25/24 0932 [Provider Held] pravastatin (PRAVACHOL) tablet 20 mg 20 mg Oral Daily Corbin Adonis PRINTING PRESS MACHINIST pregabalin (LYRICA) capsule 100 mg 100 mg Oral TID Corbin Adonis, PRINTING PRESS MACHINIST 100 mg at 11/25/24 0935 senna-docusate (SENNA-S) 8.6-50 MG tablet 2 tablet 2 tablet Oral BID Corbin Adonis, PRINTING PRESS MACHINIST 2 tablet at 11/25/24 0936 thiamine mononitrate (VITAMIN B-1) tablet 200 mg 200 mg Oral Daily Corbin Adonis, PRINTING PRESS MACHINIST 200 mg at11/25/24 0934 Physical Exam: Vitals: [...] S/p Left BKA with ampushield and stump 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 Plan of Care Patient's plan of care [...] from nurse navigator within 24-[facility] to discuss progress and/or any concerns. Confirmed patient contact information. Patient's questions and concerns addressed. Anything needing further assistance was brought to the attention of patient's care team. Patient provided with direct contact information for Nurse Navigator and reminded nurse navigator can be contacted with any questions or concerns during the recovery process. * Leroy Sanchez MD - 11/24/2024 3:17 PM EST [facility] MEDICINE PROGRESS NOTE Assessment & Plan [...] while on IV antibiotics. Fax results to [phone] 4. Patient will need to be scheduled [...] again today. Upon arrival he had a team psychologist in the room with him.Waited outside for 20 minutes before moving on to other patients. Will attempt to meet with patientagain later this week to review stoplight previously provided. * Ena Mtz MD - 11/24/2024 11:24 AM EST Images from the original note were not included. [facility] INFECTIOUS DISEASE Consult progress Note Name: [...] while on IV antibiotics. Fax results to [phone] 4. Patient will need to be scheduled for repeat TATIANNA end of November. Patient would like to get this done at [facility] He can follow-up with me on [...] 0849 Sign Ena Mtz MD, FACP, CWSP [facility] Infectious Diseases Available via ClearApp SUBJECTIVE Remains in the hospital awaiting placement [...] not compromised. This report was generated using [employer] dictation software. Although every attempt has been made by the provider to proofread this document, occasional misspellings and typographical errors may still be present. * Gianluca Calles MD - 11/23/2024 3:06 PM EST [facility] MEDICINE PROGRESS NOTE Assessment & Plan [...] MD 11/23/2024 3:06 PM * Milan Vale, ELECTRODYNAMICIST - 11/23/2024 2:03 PM EST Physical Therapy [...] level of independence with functional mobility. Current [facility] Basic Mobility Score: (P) 18 Rehab [...] upon arrival, RN in room. Ampushield and biosolids management technician inplace. Both agreeable for tx Existing Precautions/Restrictions [...] Progressive Mobility Progressive Mobility Level Achieved Ambulation [facility] Basic Mobility Turning from your back [...] Climbing 3-5 steps with a railing? 1 [facility] Basic Mobility Score 18 Therapy Assessment/Plan [...] Jardiance - regarding the question of senior living PICC for Abx, patient high risk for PICC and proline placed instead on 11/19/24 - Patient should follow up with his outpatient claims collector on discharge and get repeat lab work [...] found for: TACROLIMUS No results found for: [id number] , TOTVOL , CRCLR , PERIOD No [...] Sign: Isabel Lee PA-C 11/23/2024 7:24 AM [facility] Nephrology Office [phone] Associated attestation - Anmol Reynoso MD - [...] - Patient can follow-up with his outpatient claims collector upon discharge. Sign: Anmol Reynoso MD 11/23/2024 2:54 PM * Luz Escobedo RN - 11/22/2024 2:40 PM EST Attached media from the original note were not included. Micra AV leadless Pacemaker evaluation completed on B10E. Per patient request and verbal order SharronSHUBHAM Pitts: LRL increased from 50 bpm to 60 bpm. Presenting rhythm: AM/CUSTOMER LEADER @ 62 bpm. Underlying rhythm: CHB. AM/CUSTOMER LEADER pacing 81%, with total V-pacing 100%. Battery [...] level of independence with self-care tasks. Current [facility] Daily Activity Score: 16 Precautions/Restrictions: aspiration, [...] Progressive Mobility Progressive Mobility Level Achieved Ambulation [facility] Daily Activity Putting on and taking off Lower Body Clothing? 3 Bathing (including washing/rinsing/drying)? 2 Toileting (includes using toilet, bedpan, or urinal)? 2 Putting on and taking off upper body clothing? 3 Taking care of personal grooming such as brushing teeth? 3 Eating meals? 3 [facility] Daily Activity Score 16 Progress Summary [...] Jardiance - regarding the question of senior living PICC for Abx, patient high risk for [...] found for: TACROLIMUS No results found for: [id number] , TOTVOL , CRCLR , PERIOD No [...] Sign: Anmol Reynoso MD 11/22/2024 9:34 AM [facility] Nephrology Office [phone] * Roberto Carranza, ELECTRODYNAMICIST - 11/22/2024 8:46 AM EST Physical Therapy [...] level of independence with functional mobility. Current [facility] Basic Mobility Score: 16 Rehab Plan [...] Progressive Mobility Level Achieved Transferring to Chair [facility] Basic Mobility Turning from your back [...] Climbing 3-5 steps with a railing? 1 [facility] Basic Mobility Score 16 Therapy Assessment/Plan [...] the original note were not included. [facility] C[facility]IOLOGY PROGRESS NOTE Outpatient Tool Die Maker: [facility] Assessment & Plan Assessment 63 year old male with hypertension, hyperlipidemia, diabetes, CKD stage III, peripheral artery disease, diabetes, foot infection with osteomyelitis, complete heart block s/p dual chamber pacemaker [id number], atrial fibrillation s/p multiple ablations and cardioversions [...] by 8 bpm Confirmed by MD Claude, [facility] ([id number]) on 11/07/2024 6:25:53 PM TATIANNA [...] Compared to previous outside study report from [facility] on 08/05/2024, Mitral and tricuspid regurgitation were not previously reported. Recommend transesophageal echocardiogram if clinically indicated. Brain MRI 11/12/2024 No acute intracranial findings or suspicious intracranial lesions. No septic emboli. All additional appropriate imaging studies within the past 24 hours reviewed - images reviewed and independently interpreted. Sign Gema Jane APRN [facility] [place] 11/22/2024 8:19 AM * Jose Adair MD [...] Current Medications: acetaminophen, 975 mg, Oral, Q6H [facility] amiODARONE, 200 mg, Oral, Daily [...] found for: TACROLIMUS No results found for: [id number] , TOTVOL , CRCLR , PERIOD No results found for: IRON , TIBC , IRONSAT , UIBC Lab Results Component Value Date BILITOT 0.2 11/17/2024 AST 24 11/17/2024 Sign: Jose Adair MD 11/21/2024 2:23 PM * Gianluca Calles MD - 11/21/2024 12:02 PM EST [facility] MEDICINE PROGRESS NOTE Assessment & Plan [...] Calles MD - 11/20/2024 11:43 AM EST [facility] MEDICINE PROGRESS NOTE Assessment & Plan [...] MD 11/20/2024 11:44 AM * Elsy Coronel, PRINTING PRESS MACHINIST - 11/20/2024 9:23 AM EST Inpatient Nephrology [...] found for: TACROLIMUS No results found for: [id number] , TOTVOL , CRCLR , PERIOD No results found for: IRON , TIBC , IRONSAT , UIBC Lab Results Component Value Date BILITOT 0.2 11/17/2024 AST 24 11/17/2024 Signed: Elsy Coronel APRN 11/20/2024 9:23 AM Associated attestation - Jose Adair MD - 11/20/2024 6:31 PM EST ATTESTATION: This encounter was done in conjunction with [facility] [employer]. I provided the substantive portion of thevisit [...] Calles MD - 11/19/2024 2:22 PM EST [facility] MEDICINE PROGRESS NOTE Assessment & Plan [...] the original note were not included. [facility] INFECTIOUS DISEASE Consult progress Note Name: [...] while on IV antibiotics. Fax results to [phone] 4. Patient will need to be scheduled for repeat TATIANNA end of November Patient would like to follow-up with infectious disease close to home. I have communicated with Dr. Saritha Coffey office (infectious disease) at [phone]. She stated that this patient is very complicated for [facility] and she will not be following this patient He can follow-up with me in my office in 3 to 4 weeks. I would recommend that he be scheduled for repeat TATIANNA end of November at here at [facility] Current antibiotic/day of therapy: Anti-infectives (From [...] 0849 Sign Ena Mtz MD, FACP, CWSP [facility] Infectious Diseases Available via [employer] SUBJECTIVE Afebrile, status post AICD extraction CURRENT [...] care and coordination of care with his [id number] infectious disease physician and office Of note, some information is being carried forward from prior records for informational purposes only and is being cited so that efficiency, safety and quality of this patient's care is not compromised. This report was generated using [employer] Speaking dictation software. Although every attempt has [...] left stoplight for his review and will zuni back next week to review with the patient. * Valencia Lau APRN - 11/19/2024 8:02 AM EST Images from the original note were not included. 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: [facility] Assessment & Plan Assessment 63 year old male with hypertension, hyperlipidemia, diabetes, CKD stage III, peripheral artery disease, diabetes, foot infection with osteomyelitis, complete heart block s/p dual chamber pacemaker [id number], atrial fibrillation s/p multiple ablations and cardioversions [...] renal dysfunction- would resume when able, beta lereoy as below, plan to add ARB and [...] injection 5,000 Units On hold since Fri11/16/2024 [id number] until manually unheld; held by Herberth Whitmore [...] by 8 bpm Confirmed by MD Claude, [facility] ([id number]) on 11/07/2024 6:25:53 PM TATIANNA [...] Compared to previous outside study report from [facility] on 08/05/2024, Mitral and tricuspid regurgitation were not previously reported. Recommend transesophageal echocardiogram if clinically indicated. Brain MRI 11/12/2024 No acute intracranial findings or suspicious intracranial lesions. No septic emboli. All additional appropriate imaging studies within the past 24 hours reviewed - images reviewed and independently interpreted. Sign Valencia Lau APRN [facility] [place] 11/19/2024 8:54 AM * Lela Amor MD [...] interrogation ordered for post- OP. Presenting rhythm: AM-CUSTOMER LEADER @ 69 bpm. Underlying rhythm: No ventricular response greater than 40 bpm. AM-CUSTOMER LEADER @ 84.8%. Battery and device parameters evaluated [...] following is my assessment: Reason For Order: Inspector Barrel Orders Ordered Cardiac monitoring / telemetry Until [...] Name: Blas Genao : 1960 MR Number: [id number] Reason for Consultation: Rehabilitation potential Date of [...] acute CHFmrEF, pain. He is NWB to [facility]. Rehab Diagnosis: s/p left BKA Amputation: 05.4 [...] support, tolerance to therapy and plan for senior care antibiotics. Will follow progress with therapy. [...] tablet 975 mg 975 mg Oral Q6H [facility] Corbin Lamb PRINTING PRESS MACHINIST 975 mg at 026 acetaminophen (TYLENOL) tablet 975 mg 975 mg Oral Q6H PRN Corbin Lamb PRINTING PRESS MACHINIST amiODARONE (PACERONE) tablet 200 mg 200 mg Oral Daily Corbin Lamb PRINTING PRESS MACHINIST 200 mg at 11/18/24 1030 amLODIPine (NORVASC) tablet 10 mg 10 mg Oral Daily Corbin Lamb PRINTING PRESS MACHINIST 10 mg at 11/18/24 1029 benzocaine-menthol (CHLORASEPTIC) 6-10 MG lozenge 1 lozenge 1 lozenge Mouth/Throat Q2H PRN RosselamleRoxanna Hinds, PRINTING PRESS MACHINIST bisacodyl (DULCOLAX) suppository 10 mg 10 mg Rectal Daily PRN Corbin Lamb APRN bumetanide (BUMEX) injection 1 mg 1 mg Intravenous Q24H Corbin Lamb PRINTING PRESS MACHINIST 1 mg at 11/18/24 1103 buPROPion (WELLBUTRIN SR) 12 hr tablet 150 mg 150 mg Oral BID Corbin Lamb PRINTING PRESS MACHINIST 150 mg at 11/18/24 1028 calcium carbonate (TUMS) chewable tablet 1,000 mg 1,000 mg Oral Q12H PRN Corbin Lamb PRINTING PRESS MACHINIST calcium citrate (CALCITRATE) tablet 950 mg 950 [...] catheter CHG application Topical Daily Corbin Lamb PRINTING PRESS MACHINIST Given at 11/18/24 1031 cholecalciferol tablet 2,000 Units 2,000 Units Oral Daily Corbin Lamb, PRINTING PRESS MACHINIST 2,000 Units at 11/18/24 1103 cyanocobalamin (VITAMIN B-12) tablet 2,500 mcg 2,500 mcg Oral Daily Corbin Lamb PRINTING PRESS MACHINIST 2,500 mcg at 11/18/24 1027 DAPTOmycin (CUBICIN) 975 mg in sodium chloride (NS) 0.9 % 50 mL IVPB 10 mg/kg (Adjusted) Intravenous Q24H Corbin Lamb PRINTING PRESS MACHINIST 0 mL/hr at 11/16/24 1712 975 mg at 11/17/24 1420 donepezil (ARICEPT) tablet 10 mg 10 mg Oral QAM Corbin Lamb PRINTING PRESS MACHINIST 10 mg at 11/18/24 1105 [Provider Held] empagliflozin (JARDIANCE) 25 mg 25 mg Oral Daily Corbin Lamb, PRINTING PRESS MACHINIST 25 mg at 11/04/24 0756 folic acid (FOLVITE) tablet 1 mg 1 mg Oral Daily Corbin Lamb PRINTING PRESS MACHINIST 1 mg at 11/18/24 1028 [Provider Held] glimepiride (AMARYL) tablet 2 mg 2 mg Oral Daily with breakfast Corbin Lamb PRINTING PRESS MACHINIST 2 mg at 11/04/24 0757 [Provider Held] heparin (porcine) 5000 unit/mL injection 5,000 Units 5,000 Units Subcutaneous Q8H [facility] Corbin Lamb PRINTING PRESS MACHINIST 5,000 Units at 11/16/24 1714 HYDROmorphone (DILAUDID) tablet 2 mg 2 mg Oral Q3H PRN Corbindenise Lamb, PRINTING PRESS MACHINIST 2 mg at 11/18/24 1030 HYDROmorphone (DILAUDID) tablet 4 mg 4 mg Oral Q3H PRN Corbin Adonis, PRINTING PRESS MACHINIST 4 mg at 11/16/24 2213 insulin glargine (LANtus/SEMGLEE) 100 units/mL injection 10 Units 10 Units Subcutaneous Daily Corbindenise Lamb, PRINTING PRESS MACHINIST 10 Units at 11/18/24 1032 insulin lispro (HumaLOG/ADMELOG) 100 units/mL injection 1-6 Units 1-6 Units Subcutaneous TID with meals Corbin Adonis, PRINTING PRESS MACHINIST 3 Units at 11/18/24 1232 insulin lispro (HumaLOG/ADMELOG) 100 units/mL injection 3 Units 3 Units Subcutaneous TID with mealsNiccarmen Lamb, PRINTING PRESS MACHINIST 3 Units at 11/18/24 1232 ipratropium-albuterol (DUONEB) 0.5-2.5 mg/3 mL nebulizer solution 3 mL 3 mL Nebulization Q2H PRN Corbindenise Lamb, PRINTING PRESS MACHINIST 3 mL at 11/07/24 1025 lactulose (ENULOSE) 10 gm/15 mL solution 20 g 20 g Oral Q4H PRN Corbin Lamb, PRINTING PRESS MACHINIST melatonin tablet 3 mg 3 mg Oral Nightly PRN Corbindenise Lamb, PRINTING PRESS MACHINIST 3 mg at 11/16/24 2215 methocarbamol (ROBAXIN) tablet 1,000 mg 1,000 mg Oral 4x Daily Corbindenise Lamb, PRINTING PRESS MACHINIST 1,000 mg at 11/18/24 1105 metoPROLOL TARTRATE (LOPRESSOR) tablet 50 mg 50 mg Oral BID Corbin Adonis, PRINTING PRESS MACHINIST 50 mg at 11/18/24 1031 multivitamin with minerals tablet 1 tablet 1 tablet Oral Daily Corbindenise Lamb, PRINTING PRESS MACHINIST 1 tablet at 11/18/24 1028 naloxone (NARCAN) 0.4 mg/mL injection 0.4 mg 0.4 mg Intravenous Q5 Min PRN Corbindenise Lamb PRINTING PRESS MACHINIST naloxone (NARCAN) 0.4 mg/mL injection 0.4 mg 0.4 mg Intravenous Q5 Min PRN Corbin Adonis, PRINTING PRESS MACHINIST nicotine (NICODERM CQ) 21 MG/24HR patch 1 patch 1 patch Transdermal Daily Corbin Adonis, PRINTING PRESS MACHINIST 1 patch at 11/18/24 1030 ondansetron (ZOFRAN) injection 4 mg 4 mg Intravenous Q6H PRN Corbin Adonis, PRINTING PRESS MACHINIST 4 mg at 11/17/24 1639 PANTOprazole (PROTONIX) EC tablet 40 mg 40 mg Oral Daily Corbin Adonis, PRINTING PRESS MACHINIST 40 mg at 11/18/24 1029 polyethylene glycol (miraLAx) packet 17 g 17 g Oral Daily Corbin Adonis, PRINTING PRESS MACHINIST 17 g at 11/18/24 1040 [Provider Held] pravastatin (PRAVACHOL) tablet 20 mg 20 mg Oral Daily Corbin Adonis, PRINTING PRESS MACHINIST pregabalin (LYRICA) capsule 100 mg 100 mg Oral TID Corbin Adonis, PRINTING PRESS MACHINIST 100 mg at 11/18/24 1105 senna-docusate (SENNA-S) 8.6-50 MG tablet 2 tablet 2 tablet Oral BID Corbin Adonis, PRINTING PRESS MACHINIST 2 tablet at 11/18/24 1032 thiamine mononitrate (VITAMIN B-1) tablet 200 mg 200 mg Oral Daily Corbin Adonis, PRINTING PRESS MACHINIST 200 mg at11/18/24 1031 Physical Exam: Vitals: [...] S/p Left BKA with ampushield and stump 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 Presenting rhythm: AM-CUSTOMER LEADER @ 69 bpm. Underlying rhythm: No ventricular response greater than 40 bpm. AM-CUSTOMER LEADER @ 84.8%. Battery and device parameters evaluated [...] the original note were not included. [facility] INFECTIOUS DISEASE Consult progress Note Name: [...] try to reach Dr. Saritha Coffey at [facility] tomorrow Current antibiotic/day of therapy: Anti-infectives (From [...] 0849 Sign Ena Mtz MD, FACP, CWSP [facility] Infectious Diseases Available via ClearApp SUBJECTIVE Afebrile, status post AICD extraction CURRENT [...] not compromised. This report was generated using AmberAds Speaking dictation software. Although every attempt has been made by the provider to proofread this document, occasional misspellings and typographical errors may still be present. * Valencia Lau APRN - 11/18/2024 8:48 AM EST Images from the original note were not included. [facility] PROGRESS NOTE Outpatient Tool Die Maker: [facility] Assessment & Plan Assessment 63 year old male with hypertension, hyperlipidemia, diabetes, CKD stage III, peripheral artery disease, diabetes, foot infection with osteomyelitis, complete heart block s/p dual chamber pacemaker [id number], atrial fibrillation s/p multiple ablations and cardioversions [...] injection 5,000 Units On hold since Fri11/16/2024 [id number] until manually unheld; held by Herberth Whitmore [...] by 8 bpm Confirmed by MD Claude, [facility] ([id number]) on 11/07/2024 6:25:53 PM TATIANNA [...] Compared to previous outside study report from [facility] on 08/05/2024, Mitral and tricuspid regurgitation were not previously reported. Recommend transesophageal echocardiogram if clinically indicated. Brain MRI 11/12/2024 No acute intracranial findings or suspicious intracranial lesions. No septic emboli. All additional appropriate imaging studies within the past 24 hours reviewed - images reviewed and independently interpreted. Sign Valencia Lau APRN [facility] [place] 11/18/2024 8:48 AM * Cristina Rodriguez APRN - 11/18/2024 8:28 AM EST Electrophysiology Update: Mr. Genao is POD#1 s/p dual pacemaker system extraction for polymicrobial bacteremia including enterococcus and MRSA and implant of a AV Micra PM with Dr. aPbon. Post op device check this AM shows [...] Department Center 12/07/2024 1:30 PM ROOM, ICD/PACER/LOOP [facility] ARRHY [facility] Arrhythmi Current Facility-Administered Medications: acetaminophen (TYLENOL) tablet 975 mg, 975 mg, Oral, Q6H JUDSON, Corbin Adonis, PRINTING PRESS MACHINIST, 650 mg at 11/18/24 0305 acetaminophen (TYLENOL) tablet 975 mg, 975 mg, Oral, Q6H PRN, Corbin Adonis, PRINTING PRESS MACHINIST amiODARONE (PACERONE) tablet 200 mg, 200 mg, Oral, Daily, Corbin Adonis, PRINTING PRESS MACHINIST, 200 mg at 11/17/24 0813 amLODIPine (NORVASC) tablet 10 mg, 10 mg, Oral, Daily, Corbin Adonis, PRINTING PRESS MACHINIST, 10 mg at 11/17/24 0816 benzocaine-menthol (CHLORASEPTIC) 6-10 MG lozenge 1 lozenge, 1 lozenge, Mouth/Throat, Q2H PRN, Gretel Hinds, PRINTING PRESS MACHINIST bisacodyl (DULCOLAX) suppository 10 mg, 10 mg, Rectal, Daily PRN, Corbin Adonis, PRINTING PRESS MACHINIST bumetanide (BUMEX) injection 1 mg, 1 mg, Intravenous, Q24H, Corbin Adonis, PRINTING PRESS MACHINIST, 1 mg at 11/17/24 0813 buPROPion (WELLBUTRIN SR) 12 hr tablet 150 mg, 150 mg, Oral, BID, Corbin Adonis, PRINTING PRESS MACHINIST, 150 mg at11/17/24 2125 calcium carbonate (TUMS) chewable tablet 1,000 mg, 1,000 mg, Oral, Q12H PRN, Corbin Adonis, PRINTING PRESS MACHINIST calcium citrate (CALCITRATE) tablet 950 mg, 950 mg, Oral, BID with meals, Corbin Adonis, PRINTING PRESS MACHINIST, 950 mg at 11/17/24 0813 carboxymethylcellulose (REFRESH PLUS) 0.5 % ophthalmic solution 2 drop, 2 drop, Each Eye, Q2H PRN, Gretel Hinds, PRINTING PRESS MACHINIST chlorhexidine gluconate 2 % wipes - urethral catheter CHG application, , Topical, Daily, Corbin Adonis, PRINTING PRESS MACHINIST cholecalciferol tablet 2,000 Units, 2,000 Units, Oral, Daily, Corbin Adonis, PRINTING PRESS MACHINIST, 2,000 Units at 11/17/24 0815 cyanocobalamin (VITAMIN B-12) tablet 2,500 mcg, 2,500 mcg, Oral, Daily, Corbin Adonis, PRINTING PRESS MACHINIST, 2,500 mcg at 11/17/24 0814 DAPTOmycin (CUBICIN) 975 mg in sodium chloride (NS) 0.9 % 50 mL IVPB, 10 mg/kg (Adjusted), Intravenous, Q24H, Corbin Adonis, PRINTING PRESS MACHINIST, Last Rate: 0 mL/hr at 11/16/24 1712, 975 mg at 11/17/24 1420 donepezil (ARICEPT) tablet 10 mg, 10 mg, Oral, QAM, Corbin Adonis, PRINTING PRESS MACHINIST, 10 mg at 11/17/24 0816 [Provider Held] empagliflozin (JARDIANCE) 25 mg, 25 mg, Oral, Daily, Corbin Adonis, PRINTING PRESS MACHINIST, 25 mg at 11/04/24 0756 folic acid (FOLVITE) tablet 1 mg, 1 mg, Oral, Daily, Corbin Adonis, PRINTING PRESS MACHINIST, 1 mg at 11/17/24 0813 [Provider Held] glimepiride (AMARYL) tablet 2 mg, 2 mg, Oral, Daily with breakfast, Corbin Lamb, PRINTING PRESS MACHINIST, 2 mg at 11/04/24 0757 [Provider Held] heparin (porcine) 5000 unit/mL injection 5,000 Units, 5,000 Units, Subcutaneous, Q8H JUDSON, Corbindenise Lamb, PRINTING PRESS MACHINIST, 5,000 Units at 11/16/24 1714 HYDROmorphone (DILAUDID) tablet 2 mg, 2 mg, Oral, Q3H PRN, Corbindenise Lamb, PRINTING PRESS MACHINIST, 2 mg at HYDROmorphone (DILAUDID) tablet 4 mg, 4 mg, Oral, Q3H PRN, Corbin Adonis, PRINTING PRESS MACHINIST, 4 mg at 213 insulin glargine (LANtus/SEMGLEE) 100 units/mL injection 10 Units, 10 Units, Subcutaneous, Daily, Corbin Lamb PRINTING PRESS MACHINIST insulin lispro (HumaLOG/ADMELOG) 100 units/mL injection 1-6 Units, 1-6 Units, Subcutaneous, TID with meals, Corbin Adonis, PRINTING PRESS MACHINIST, 1 Units at 11/17/24 1856 insulin lispro (HumaLOG/ADMELOG) 100 units/mL injection 3 Units, 3 Units, Subcutaneous, TID with meals, Corbin Lamb, PRINTING PRESS MACHINIST, 3 Units at 11/17/24 1213 ipratropium-albuterol (DUONEB) 0.5-2.5 mg/3 mL nebulizer solution 3 mL, 3 mL, Nebulization, Q2H PRN, Corbin Lamb, PRINTING PRESS MACHINIST, 3 mL at 11/07/24 1025 lactulose (ENULOSE) 10 gm/15 mL solution 20 g, 20 g, Oral, Q4H PRN, Corbin Lamb, PRINTING PRESS MACHINIST melatonin tablet 3 mg, 3 mg, Oral, Nightly PRN, Corbin Adonis, PRINTING PRESS MACHINIST, 3 mg at 11/16/24 2215 methocarbamol (ROBAXIN) tablet 1,000 mg, 1,000 mg, Oral, 4x Daily, Corbindenise Lamb, PRINTING PRESS MACHINIST, 1,000 mgat 11/17/242125 metoPROLOL TARTRATE (LOPRESSOR) tablet 50 mg, 50 mg, Oral, BID, Corbin Adonis, PRINTING PRESS MACHINIST, 50 mg at 11/17/242123 multivitamin with minerals tablet 1 tablet, 1 tablet, Oral, Daily, Corbin Adonis, PRINTING PRESS MACHINIST, 1 tabletat 11/17/24 0816 naloxone (NARCAN) 0.4 mg/mL injection 0.4 mg, 0.4 mg, Intravenous, Q5 Min PRN, Corbin Adonis, PRINTING PRESS MACHINIST naloxone (NARCAN) 0.4 mg/mL injection 0.4 mg, 0.4 mg, Intravenous, Q5 Min PRN, Corbin Adonis, PRINTING PRESS MACHINIST nicotine (NICODERM CQ) 21 MG/24HR patch 1 patch, 1 patch, Transdermal, Daily, Corbin Adonis, PRINTING PRESS MACHINIST, 1 patch at 11/17/24 0816 ondansetron (ZOFRAN) injection 4 mg, 4 mg, Intravenous, Q6H PRN, Corbin Adonis, PRINTING PRESS MACHINIST, 4 mg at 11/17/24 1639 PANTOprazole (PROTONIX) EC tablet 40 mg, 40 mg, Oral, Daily, Corbin Adonis, PRINTING PRESS MACHINIST, 40 mg at 11/17/24 0815 polyethylene glycol (miraLAx) packet 17 g, 17 g, Oral, Daily, Corbin Adonis, PRINTING PRESS MACHINIST, 17 g at 11/17/24 1212 [Provider Held] pravastatin (PRAVACHOL) tablet 20 mg, 20 mg, Oral, Daily, Corbin Adonis, PRINTING PRESS MACHINIST pregabalin (LYRICA) capsule 100 mg, 100 mg, Oral, TID, Corbin Adonis, PRINTING PRESS MACHINIST, 100 mg at 11/17/242123 senna-docusate (SENNA-S) 8.6-50 MG tablet 2 tablet, 2 tablet, Oral, BID, Corbin Adonis, PRINTING PRESS MACHINIST, 2 tablet at 11/17/242124 thiamine mononitrate (VITAMIN B-1) tablet 200 mg, 200 mg, Oral, Daily, Corbin Adonis, PRINTING PRESS MACHINIST, 200 mg at 11/17/24 0814 Vitals: 11/18/24 [...] (218 lb 11.1 oz) Height: Cristina Rodriguez, PRINTING PRESS MACHINIST 11/18/24 9:18 AM Addendum: From an EP perspective, he can re-start his Eliquis today. Cristina Rodriguez, PRINTING PRESS MACHINIST 11/18/24 9:19 AM * Sri Pena RN - 11/18/2024 8:25 AM EST Attached media from the original note were not included. Pacemaker evaluation completed on B10E, device interrogation ordered for post- OP. Presenting rhythm: AM-CUSTOMER LEADER @ 69 bpm. Underlying rhythm: No ventricular response greater than 40 bpm. AM-CUSTOMER LEADER @ 84.8%. Battery and device parameters evaluated [...] level of independence with self-care tasks. Current [facility] Daily Activity Score: 16 Precautions/Restrictions: fall, aspiration, pacemaker, isolation: contact, weight bearing (NWBing to L residual limb with biosolids management technician and nutmeggar in place, skin) Rehab Plan [...] bearing (NWBing to L residual limb with biosolids management technician and nutmeggar in place, skin) Pain Assessment [...] Progressive Mobility Level Achieved Edge of Bed [facility] Daily Activity Putting on and taking off Lower Body Clothing? 3 Bathing (including washing/rinsing/drying)? 2 Toileting (includes using toilet, bedpan, or urinal)? 2 Putting on and taking off upper body clothing? 3 Taking care of personal grooming such as brushing teeth? 3 Eating meals? 3 [facility] Daily Activity Score 16 Therapy Assessment/Plan [...] OT) goal ongoing Bathing Goal 1 (OT) Cowley Level/Cues Needed (Bathing Goal 1, OT) minimum [...] Frame (Dressing Goal 1, OT) 1 week Cowley/Cues Needed (Dressing Goal 1, OT) minimum assist (75% or more patient effort) Toileting Goal 1 (OT) Activity/Device (Toileting Goal 1, OT) toileting skills, all Progress/Outcome (Toileting Goal 1, OT) goal revised this date Time Frame (Toileting Goal 1, OT) 1 week Cowley Level/Cues Needed (Toileting Goal 1, OT) minimum assist (75% or more patient effort) Sign: Katy Rodgers, YOVANNY * Valencia Lau APRN - 11/17/2024 10:51 AM EST Images from the original note were not included. 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 Underlying rhythm: SB @ [...] by 8 bpm Confirmed by MD Claude, [facility] ([id number]) on 11/07/2024 6:25:53 PM TATIANNA [...] Compared to previous outside study report from [facility] on 08/05/2024, Mitral and tricuspid regurgitation were not previously reported. Recommend transesophageal echocardiogram if clinically indicated. Brain MRI 11/12/2024 No acute intracranial findings or suspicious intracranial lesions. No septic emboli. All additional appropriate imaging studies within the past 24 hours reviewed - images reviewed and independently interpreted. Sign Valencia Lau APRN [facility] [place] 11/17/2024 10:51 AM Associated attestation - Devon [...] MD 11/17/2024 10:06 AM * Roberto Carranza, ELECTRODYNAMICIST - 11/17/2024 9:36 AM EST Physical Therapy Progress Note Precautions/Restrictions: fall, aspiration, other (see comments) (Skin) Assessment Summary: Patient seen for PT follow up. L residual limb biosolids management technician and nutmegger donned. Performed bed mobility and [...] level of independence with functional mobility. Current [facility] Basic Mobility Score: 16 Rehab Plan [...] Progressive Mobility Level Achieved Transferring to Chair [facility] Basic Mobility Turning from your back [...] Climbing 3-5 steps with a railing? 1 [facility] Basic Mobility Score 16 Therapy Assessment/Plan [...] the original note were not included. [facility] INFECTIOUS DISEASE Consult progress Note Name: [...] 0849 Sign Ena Mtz MD, FACP, CWSP [facility] Infectious Diseases Available via ClearApp SUBJECTIVE Afebrile. No new complaints Feels better. [...] not compromised. This report was generated using AmberAds Speaking dictation software. Although every attempt has [...] were not included. Coverage for Dr. Mtz [facility] ID Progress Note Name: Blas Genao [...] Soft, nontender Extremities: Left BKA stump with biosolids management technician garment, and ampul sheIld LABORATORY AND DIAGNOSTIC [...] performed in office at [facility] and images reviewed by orthopedic provider. Any [...] not compromised This report was generated using AmberAds Speaking dictation software. Although every attempt has been made by the provider to proofread this document, occasional misspellings and typographical errors Sign Chris Taylor MD, FID, [facility] Infectious Diseases Available via [employer] 11/16/2024 11:27 AM * Maddison Villalpando MD - 11/15/2024 5:16 PM EST [facility] MEDICINE PROGRESS NOTE Assessment & Plan [...] were not included. Coverage for Dr. Mtz [facility] ID Progress Note Name: Blas Genao [...] faecium -10/27: Left foot wound culture at [facility]: MRSA, Enterococcus faecalis, VRE, Corynebacterium species and [...] injection 5,000 Units 5,000 Units Subcutaneous Q8H [facility] Luis Degroot MD 5,000 Units [...] not compromised This report was generated using Njuice dictation software. Although every attempt has been made by the provider to proofread this document, occasional misspellings and typographical errors Sign Chris Taylor MD, [facility], [facility] Infectious Diseases Available via [employer] 11/15/2024 1:10 PM * Devon Lazo MD - 11/15/2024 1:00 PM EST Images from the original note were not included. [facility] PROGRESS NOTE Outpatient Tool Die Maker: Assessment & Plan Assessment 63 year old male with hypertension, hyperlipidemia, diabetes, CKD stage III, peripheral artery disease, diabetes, foot infection with osteomyelitis, complete heart block s/p dual chamber pacemaker [id number], atrial fibrillation s/p multiple ablations and cardioversions [...] and independently interpreted. Sign Devon Lazo MD [facility] [place] 11/15/2024 1:00 PM * Elida Berger OT [...] Patient is highly motivated to return to [facility] and reports good family support and DME. Pt is an excellent rehab candidate and will benefit from3 hours of intensive daily therapy with the potential to return home and reintegrate back into the [facility]. Progress Towards Goals: progress toward functional goals is good Outcome Measures: The Activity Measure for Post-Acute Care (AM-PAC) Daily Activity Inpatient Short Form (6-clicks) zakiya standardized measure used to quantify deficits in self-care. The total score of the measure ranges from 6-24. A higher score indicates a higher level of independence with self-care tasks. Current [facility] Daily Activity Score: 17 Precautions/Restrictions: fall, [...] Progressive Mobility Level Achieved Transferring to Chair [facility] Daily Activity Putting on and taking off Lower Body Clothing? 3 Bathing (including washing/rinsing/drying)? 2 Toileting (includes using toilet, bedpan, or urinal)? 2 Putting on and taking off upper body clothing? 3 Taking care of personal grooming such as brushing teeth? 3 Eating meals? 4 [facility] Daily Activity Score 17 Therapy Assessment/Plan [...] Villalpando MD - 11/14/2024 2:48 PM EST [facility] MEDICINE PROGRESS NOTE Assessment & Plan [...] from the original note were not included. [facility] Inpatient Progress Note Date of admission:11/02/2024 Today's date: 11/13/2024 Primary Tool Die Maker: [facility] Assessment & Plan 63 year old male with hypertension, hyperlipidemia, diabetes, CKD stage III, peripheral artery disease, diabetes, foot infection with osteomyelitis, complete heart block s/p dual chamber pacemaker [id number], atrial fibrillation s/p multiple ablations and cardioversions [...] -Pacer interrogation 11/11/24: Presenting rhythm: AP / CUSTOMER LEADER @ 60 bpm. Underlying rhythm: SB @ [...] pain, dizziness, palpitations, syncope Objective: Telemetry Reviewed: CUSTOMER LEADER 60 Last Vitals Pulse:63,Resp:18,BP:116/60,SpO2:96 %,Weight:120 kg (264 [...] Compared to previous outside study report from [facility] on 08/05/2024, Mitral and tricuspid regurgitation were [...] Villalpando MD - 11/12/2024 4:39 PM EST [facility] MEDICINE PROGRESS NOTE Assessment & Plan [...] Danielle MD - 11/12/2024 3:33 PM EST [facility] ID Progress Note Length of Stay: [...] final timing Time spent on chart/literature review, [id number] discussion and exam with patient, and documentation: [...] Resolved Problems: Noemí Danielle MD Available on Contest[employer] 11/12/2024 3:33 PM * POOJA Allen - 11/12/2024 11:59 AM EST Images from the original note were not included. [facility] Inpatient Progress Note Date of admission:11/02/2024 Today's date: 11/12/2024 Primary Tool Die Maker: [facility] Assessment & Plan 63 year old male with hypertension, hyperlipidemia, diabetes, CKD stage III, peripheral artery disease, diabetes, foot infection with osteomyelitis, complete heart block s/p dual chamber pacemaker [id number], atrial fibrillation s/p multiple ablations and cardioversions [...] Pacer eval 11/11/24: Presenting rhythm: AP / CUSTOMER LEADER @ 60 bpm. Underlying rhythm: SB @ [...] No lightheadedness or dizziness. Objective: Telemetry Reviewed: CUSTOMER LEADER 60 Last Vitals Pulse:67,Resp:18,BP:(!) 113/53,SpO2:(!) 91 %,Weight:120 [...] Compared to previous outside study report from [facility] on 08/05/2024, Mitral and tricuspid regurgitation were [...] PM EST I agree with the pharmacy services director note. * Elida Berger, OT - 11/12/2024 [...] Patient is highly motivated to return to [facility] and reports good family support and DME. Pt is an excellent rehab candidate and will benefit from3 hours of intensive daily therapy with the potential to return home and [facility]. Progress Towards Goals: progress toward functional goals is good Outcome Measures: The Activity Measure for Post-Acute Care (AM-PAC) Daily Activity Inpatient Short Form (6-clicks) zakiya standardized measure used to quantify deficits in self-care. The total score of the measure ranges from 6-24. A higher score indicates a higher level of independence with self-care tasks. Current [facility] Daily Activity Score: 16 Precautions/Restrictions: fall, [...] Progressive Mobility Level Achieved Transferring to Chair [facility] Daily Activity Putting on and taking off Lower Body Clothing? 2 Bathing (including washing/rinsing/drying)? 2 Toileting (includes using toilet, bedpan, or urinal)? 2 Putting on and taking off upper body clothing? 3 Taking care of personal grooming such as brushing teeth? 3 Eating meals? 4 [facility] Daily Activity Score 16 Therapy Assessment/Plan [...] ordered for function. Presenting rhythm: AP / CUSTOMER LEADER @ 60 bpm. Underlying rhythm: SB @ [...] of 40-44% and patent foramina well with [id number] shunting and moderate to severe TR MRI [...] concerns validated and emotional support provided; nurse forensic manager made aware. Resources: Patient informed of the following resources and how to request it: Integrative Medicine Services available at [facility], including, Massage Therapy, and Reiki/Energy Therapy Social [...] were not included. Coverage for Dr. Mtz [facility] ID Progress Note Name: Blas Genao [...] faecium -10/27: Left foot wound culture at [facility]: MRSA, Enterococcus faecalis, VRE, Corynebacterium species and [...] nontender Left BKA stump site covered in biosolids management technician garment and ampu sheild LABORATORY AND DIAGNOSTIC [...] 5 mg 5 mg Oral Daily PRN Rafqi Chakraborty MD bisacodyl (DULCOLAX) suppository 10 mg [...] injection 5,000 Units 5,000 Units Subcutaneous Q8H [facility] Haven Bach APRN 5,000 Units [...] injection 1-6 Units 1-6 Units Subcutaneous Q4H [facility] POOJA Crews [Provider Held] insulin [...] not compromised This report was generated using AmberAds Speaking dictation software. Although every attempt has been made by the provider to proofread this document, occasional misspellings and typographical errors Sign Chris Taylor MD, [facility], [facility] Infectious Diseases Available via [employer] 11/11/2024 10:52 AM * Fany AlexisD - 11/11/2024 9:29 AM EST Patient: Blas Genao Date: 11/11/24 Pain Management - Follow-Up Assessment: Blsa Genao is a 63 year old male [...] 4 mg q3h PRN for severe pain ([id number]). 1x dose of liquid dilaudid 1mg given [...] Compared to previous outside study report from [facility] on 08/05/2024, Mitral and tricuspid regurgitation were [...] empagliflozin (JARDIANCE) 25 mg On hold since [facility] 11/04/2024 at 1503 until manually unheld; [...] (AMARYL) tablet 2 mg On hold since [facility] 11/04/2024 at 1503 until manually unheld; [...] of Pulmonary, Critical Care, and Sleep Medicine [address] [place] [address], [address], [place] [address] Critical Care Progress Note Assessment & Plan [...] Compared to previous outside study report from [facility] on 08/05/2024, Mitral and tricuspid regurgitation were [...] Case IDs Date Procedure Surgeon Location Status [id number] 11/05/24 LEFT BELOW KNEE AMPUTATION [place] [facility] [...] empagliflozin (JARDIANCE) 25 mg On hold since [facility] 11/04/2024 at 1503 until manually unheld; [...] ruled out. This report was generated using AmberA[employer] Speaking dictation software. Although every attempt has [...] out/in endocarditis Plan -NWB, ampushield and stump biosolids management technician -Currently on ASA BID and subcutaneous heparin- [...] redressed with xeroform, abds and applied the biosolids management technician garment and ampu shield. Labs: Recent Labs [...] were not included. Coverage for Dr. Mtz [facility] ID Progress Note Name: Blas Genao [...] faecium -10/27: Left foot wound culture at [facility]: MRSA, Enterococcus faecalis, VRE, Corynebacterium species and [...] tablet 975 mg 975 mg Oral Q6H [facility] Rafiq Chakraborty MD 975 mg [...] injection 5,000 Units 5,000 Units Subcutaneous Q8H [facility] Haven Bach APRN 5,000 Units [...] 17 g 17 g Oral Daily PRN Rafqi Chakraborty MD [Provider Held] pravastatin (PRAVACHOL) tablet [...] not compromised This report was generated using AmberAds Speaking dictation software. Although every attempt has been made by the provider to proofread this document, occasional misspellings and typographical errors Sign Chris Taylor MD, [facility], [facility] Infectious Diseases Available via [employer] 11/10/2024 11:34 AM * POOJA Jimenez - 11/10/2024 10:45 AM EST Images from the original note were not included. [facility] Inpatient Progress Note Date of admission:11/02/2024 Today's date: 11/10/2024 Primary Tool Die Maker: [facility] Assessment & Plan 63 year old male with hypertension, hyperlipidemia, diabetes, CKD stage III, peripheral artery disease, diabetes, foot infection with osteomyelitis, complete heart block s/p dual chamber pacemaker [id number], atrial fibrillation s/p multiple ablations and cardioversions [...] abdomen much less distended Objective: Telemetry Reviewed: CUSTOMER LEADER 60 Last Vitals Pulse:60,Resp:17,BP:130/60,SpO2:94 %,Weight:120 kg (264 [...] empagliflozin (JARDIANCE) 25 mg On hold since [facility] 11/04/2024 at 1503 until manually unheld; held by Gayle Rye Reason: Pre-procedure On hold since Fri11/04/2024 at 1503 until manually unheld Hold reason: Pre-procedure 25 mg, PO, Daily Given, 25 mg at 11/04 0756 folic acid (FOLVITE) tablet 1 mg 1 mg, PO, Daily Given, 1 mg at 11/10 912 [Provider Held] glimepiride (AMARYL) tablet 2 mg On hold since [facility] 11/04/2024 at 1503 until manually unheld; [...] Compared to previous outside study report from [facility] on 08/05/2024, Mitral and tricuspid regurgitation were [...] Compared to previous outside study report from [facility] on 08/05/2024, Mitral and tricuspid regurgitation were [...] Pulmonary, Critical Care, and Sleep Medicine [address], [address], [place] [address] Critical Care Progress Note Assessment & Plan [...] Compared to previous outside study report from [facility] on 08/05/2024, Mitral and tricuspid regurgitation were [...] Case IDs Date Procedure Surgeon Location Status [id number] 11/05/24 LEFT BELOW KNEE AMPUTATION Dallas Camejo [...] ruled out. This report was generated using Njuice dictation software. Although every attempt has been [...] were not included. Coverage for Dr. Mtz [facility] ID Progress Note Name: Blas Gneao Age: 63 y.o. Sex: male ASSESSMENT & [...] faecium -10/27: Left foot wound culture at [facility]: MRSA, Enterococcus faecalis, VRE, Corynebacterium species and [...] Soft nontender Left BKA stump site in biosolids management technician LABORATORY AND DIAGNOSTIC DATA: Lab and imaging [...] injection 5,000 Units 5,000 Units Subcutaneous Q8H [facility] Haven Bach APRN HYDROmorphone (DILAUDID) [...] 500 mg Oral Daily with breakfast Rafiq Chkaraborty MD 500 mg at 11/04/24 0756 methocarbamol [...] not compromised This report was generated using AmberAds Speaking dictation software. Although every attempt has been made by the provider to proofread this document, occasional misspellings and typographical errors Sign Chris Taylor MD, [facility], [facility] Infectious Diseases Available via [employer] 11/09/2024 11:55 AM * Deep Bales PharmD [...] with patient again tomorrow. * Gema Dumont uBck, PRINTING PRESS MACHINIST - 11/09/2024 9:00 AM EST Images from the original note were not included. [facility] PROGRESS NOTE Outpatient Tool Die Maker: Tool Die Maker at [facility] in [place] Assessment & Plan Assessment Blas Genao is [...] Compared to previous outside study report from [facility] on 08/05/2024, Mitral and tricuspid regurgitation were not previously reported. Recommend transesophageal echocardiogram if clinically indicated. All additional appropriate imaging studies within the past 24 hours reviewed - images reviewed and independently interpreted. Sign Gema Jane APRN [facility] [place] 11/09/2024 9:00 AM * Roberto Carranza PTA - 11/09/2024 8:40 AM EST Physical Therapy Progress Note Precautions/Restrictions: fall, isolation: contact, pacemaker, other (see comments) (NWB LLE; Skin) Assessment Summary: Patient seen for PT follow up. Performed bed mobility, transfers and sidesteps this session. Required Ax2 for mobility. Adjusted nutmegger for optimal fit and protection of residual limb. Per orders patient is to have biosolids management technician on AAT, noted that residual limb was wrapped with srinivas wrap vs biosolids management technician. Reached out to orthopedic PA in regards to biosolids management technician for patient. Patient is motivated to participate [...] level of independence with functional mobility. Current [facility] Basic Mobility Score: 14 Rehab Plan [...] Progressive Mobility Progressive Mobility Level Achieved Standing [facility] Basic Mobility Turning from your back [...] Climbing 3-5 steps with a railing? 1 [facility] Basic Mobility Score 14 Therapy Assessment/Plan [...] 1, PT) goal ongoing Sign: Roberto Carranza ELECTRODYNAMICIST Associated attestation - Abhinav Pope PT - [...] level of independence with self-care tasks. Current [facility] Daily Activity Score: 15 Precautions/Restrictions: fall, [...] need to get stronger. Flowsheet Data 11/09/24 0807 OT Time and Intention OT Follow-Up [...] Progressive Mobility Level Achieved Edge of Bed [facility] Daily Activity Putting on and taking off Lower Body Clothing? 2 Bathing (including washing/rinsing/drying)? 2 Toileting (includes using toilet, bedpan, or urinal)? 1 Putting on and taking off upper body clothing? 3 Taking care of personal grooming such as brushing teeth? 3 Eating meals? 4 [facility] Daily Activity Score 15 Therapy Assessment/Plan [...] OT goal 1 Transfer Goal 1 (OT) [place] Level/Cues Needed (Transfer Goal 1, OT) minimum [...] Pulmonary, Critical Care, and Sleep Medicine [address], [address], [place] [address] Critical Care Progress Note Assessment & Plan [...] Compared to previous outside study report from [facility] on 08/05/2024, Mitral and tricuspid regurgitation were [...] the unit or at the nursing station [facility] floor where the patient is located. My [...] Case IDs Date Procedure Surgeon Location Status [id number] 11/05/24 LEFT BELOW KNEE AMPUTATION Dallas Camejo [...] ruled out. This report was generated using AmberAds Speaking dictation software. Although every attempt has [...] were not included. Coverage for Dr. Mtz [facility] ID Progress Note Name: Blas Genao [...] faecium -10/27: Left foot wound culture at [facility]: MRSA, Enterococcus faecalis, VRE, Corynebacterium species and [...] nontender Extremities: Left BKA site-> No drain. Cryptographic Clerk in place LABORATORY AND DIAGNOSTIC DATA: Lab [...] 1-11 Units Subcutaneous TID withmeals Kayla Orona, PRINTING PRESS MACHINIST 3 Units at 11/08/24 0901 insulin lispro (HumaLOG/ADMELOG) 100 units/mL injection 1-4 Units 1-4 Units Subcutaneous Nightly Kayla Orona, PRINTING PRESS MACHINIST 2 Units at 11/07/24 2046 ipratropium-albuterol (DUONEB) [...] not compromised This report was generated using AmberAds Speaking dictation software. Although every attempt has been made by the provider to proofread this document, occasional misspellings and typographical errors Sign Chris Taylor MD, T[facility] Infectious Diseases Available via [employer] 11/08/2024 10:02 AM * Dallas Camejo MD - 11/08/2024 9:46 AM EST Blas's clinical progress and CP decompensation noted. Appreciate Medical management and CT recommendations. Drain out, wound clean, and Cryptographic Clerk in place. Will continue to follow. * Gema Jane APRN - 11/08/2024 9:38 AM EST Images from the original note were not included. [facility] PROGRESS NOTE Outpatient Tool Die Maker: Tool Die Maker at [facility] in [place] Assessment & Plan Assessment Blas Genao is [...] by 8 bpm Confirmed by MD Claude, [facility] ([id number]) on 11/07/2024 6:25:53 PM ECHO: [...] Compared to previous outside study report from [facility] on 08/05/2024, Mitral and tricuspid regurgitation were not previously reported. Recommend transesophageal echocardiogram if clinically indicated. All additional appropriate imaging studies within the past 24 hours reviewed - images reviewed and independently interpreted. Sign Gema Jane APRN [facility] [place] 11/08/2024 9:38 AM * Shay Martin MD - 11/08/2024 7:40 AM EST Images from the original note were not included. Division of Pulmonary, Critical Care, and Sleep Medicine [address] [place] [address], [address] [address] Critical Care Progress Note Assessment & Plan [...] Compared to previous outside study report from [facility] on 08/05/2024, Mitral and tricuspid regurgitation were [...] the unit or at the nursing station [facility] floor where the patient is located. My [...] Case IDs Date Procedure Surgeon Location Status [id number] 11/05/24 LEFT BELOW KNEE AMPUTATION Dallas Camejo [...] ruled out. This report was generated using Njuice dictation software. Although every attempt has been [...] left lower extremity, continue LLE nutmegger and biosolids management technician. - skin checks to LLE bid - [...] CPAP 15L, sats drop when removed LLE: nutmegger/biosolids management technician in place. Thigh soft Labs: Recent Labs [...] were not included. Coverage for Dr. Mtz [facility] ID Progress Note Name: Blas Genao [...] 11/05 -10/27: Left foot wound culture at [facility]: MRSA, Enterococcus faecalis, VRE, Corynebacterium species and [...] -Ceftaroline, 11/05 Plan: Patient was upgraded to [place] 11 stepdown secondary to increased oxygen requirement, [...] tablet 975 mg 975 mg Oral Q6H [facility] POOJA De Souza 975 mg at 11/07/24 0814 amiODARONE (PACERONE) tablet 200 mg 200 mg Oral BID POOJA De Souza 200 mg at 11/07/24 0817 amLODIPine (NORVASC) tablet 10 mg 10 mg Oral Daily POOJA De Souza 10 mg at 11/07/24 0817 aspirin enteric coated (ECOTRIN LOW STRENGTH) tablet 81 mg 81 mg Oral Q12H [facility] POOJA De Souza81 mg at [...] not compromised This report was generated using AmberAds Speaking dictation software. Although every attempt has been made by the provider to proofread this document, occasional misspellings and typographical errors Sign Chris Taylor MD, [facility], [facility] Infectious Diseases Available via [employer] 11/07/2024 11:30 AM * Lei Diaz MD [...] both feet (HCC) PAD (peripheral artery disease) ([facility]) Primary osteoarthritis of knee Proteinuria Renal osteodystrophy Restless legs syndrome (RLS) no meds, lyrica helps Septic joint of left knee joint ([facility]) Sleep apnea BiPap Smoker Stage 3a chronic kidney disease (CKD) ([facility]) Past Surgical History: Procedure Laterality Date AMPUTATION [...] Surgeon: Dallas Camejo MD; Location: [facility] OR; Service: Orthopaedics; Laterality: Left; FOOT SURGERY Right x5 INCISION AND DRAINAGE FOOT Left [place] PROCEDURE MAZE AFIB OSTECTOMY CALCANEOUS Left 09/10/2024 Procedure: ANKLE PARTIAL CALCANECTOMY; Surgeon: Dallas Camejo MD; Location: [facility] OR; Service: Orthopaedics; Laterality: Left; wOUND [...] Continuous Glucose Sensor (FreeStyle Wallace [address]) [facility] INJECT 1 DEVICE INTO THE SKIN EVERY [...] to prior. Interpreted by: Roberto Tolbert MD Associate Application Developer Sign: Lei Diaz MD 11/07/2024 11:05 AM [...] from the original note were not included. [facility] MEDICINE PROGRESS NOTE Assessment Mr. Blas [...] evaled started BiPap rescuse and transferred to [facility]. Plan Principal Problem: Acute osteomyelitis of left [...] without problems. Last drink day before admission [facility] PRN protocol ordered Diet: Diet Diabetic/ Calorie Controlled; Carb Counting 60g/meal 6378-4114 kcal DVT Px: SCDs - RIGHT (Knee High) Status: Full Code Consults placed: Procedures Inpatient consult to Internal Medicine Inpatient consult to Infectious Diseases (Specify provider ) Inpatient consult to Social Work Inpatient consult to Anesthesiology Inpatient consult to cardiology ([facility]) Inpatient consult to cardiac surgery Inpatient [...] Case IDs Date Procedure Surgeon Location Status [id number] 11/05/24 LEFT BELOW KNEE AMPUTATION Dallas Camejo MD [facility] OR Comp Plan WB Status: NWB left lower extremity. House Father stump biosolids management technician in place. Appreciate PT and OT recommendations. [...] oriented. LE: Dressing clean, dry, and intact. House Father stump biosolids management technician in place. Labs: Recent Labs 11/05/24 0712 [...] level of independence with functional mobility. Baseline [facility] Basic Mobility Score: 24 Current [facility] Basic Mobility Score: 16 Objective Data [...] History Past Medical History: Diagnosis Date A-fib ([facility]) Acute osteomyelitis ([facility]) Atrial flutter ([facility]) Cardiac pacemaker 2015 Carotid atherosclerosis Charcot's joint of right foot 2015 Chronic sciatica Complete AV block ([facility]) Diabetes mellitus ([facility]) TYPE II Diabetic foot ulcer ([facility]) ED (erectile dysfunction) Edema ESBL (extended spectrum beta-lactamase) producing bacteria infection GERD (gastroesophageal reflux disease) GI bleed Hyperlipidemia Hypertension Leukocytosis Metabolic bone disease Multiple drug resistant organism (MDRO) culture positive Non healing left heel wound Obesity Osteoarthrosis Osteomyelitis of both feet (HCC) PAD (peripheral artery disease) ([facility]) Primary osteoarthritis of knee Proteinuria Renal osteodystrophy Restless legs syndrome (RLS) no meds, lyrica helps Septic joint of left knee joint ([facility]) Sleep apnea BiPap Smoker Stage 3a chronic kidney disease (CKD) ([facility]) Past Surgical History: Procedure Laterality Date AMPUTATION [...] WOUND VAC; Surgeon: Dallas Camejo MD; Location: [facility] OR; Service: Orthopaedics; Laterality: Left; FOOT SURGERY Right x5 INCISION AND DRAINAGE FOOT Left OH PROCEDURE MAZE AFIB OSTECTOMY CALCANEOUS Left 09/10/2024 Procedure: ANKLE PARTIAL CALCANECTOMY; Surgeon: Dallas Camejo MD; Location: [facility] OR; Service:Orthopaedics; Laterality: Left; wOUND PARTIALLY [...] Progressive Mobility Level Achieved Transferring to Chair [facility] Basic Mobility Turning from your back [...] Climbing 3-5 steps with a railing? 1 [facility] Basic Mobility Score 16 Therapy Assessment/Plan [...] PT goal 1 Transfer Goal 1 (PT) [place] Level/Cues Needed (Transfer Goal 1, PT) supervision required Time Frame (Transfer Goal 1, PT) 1 week Activity/Assistive Device (Transfer Goal 1, PT) qyq-uy-egudi/oboww-ih-oje;mww-xc-kmrxm/lhnoy-pl-trz;wheelchair transfer;walker, rolling Gait Training Goal 1 (PT) Time Frame (Gait Training Goal 1, PT) 1 week [place] Level (Gait Training Goal 1, PT) supervision required Activity/Assistive Device (Gait Training Goal 1, PT) gait (walking locomotion);assistive device use;maintain weight-bearing status;increase energy conservation;increase endurance/gait distance;walker, rolling Distance (Gait Training Goal 1, PT) 20 Wheelchair Locomotion Goal 1 (PT) [place] Level/Cues Needed (Wheelchair Locomotion Goal 1, PT) supervision required Time Frame (Wheelchair Locomotion Goal 1, PT) 1 week Activity (Wheelchair Locomotion Goal 1, PT) wheelchair mobility skills, all Distance Goal 1 (Wheelchair Locomotion, PT) 200 Sign: Jessica Daily PT * Chris Taylor MD - 11/06/2024 10:58 AM EST Images from the original note were not included. Coverage for Dr. Mtz [facility] ID Progress Note Name: Blas Genao [...] amputation -10/27: Left foot wound culture at [facility]: MRSA, Enterococcus faecalis, VRE, Corynebacterium species and [...] tablet 975 mg 975 mg Oral Q6H [facility] POOJA De Souza 975 mg at 11/05/24 0650 acetaminophen (TYLENOL) tablet 975 mg 975 mg Oral Q8H [facility] POOJA De Souza 975 mg [...] not compromised This report was generated using AmberAds Speaking dictation software. Although every attempt has been made by the provider to proofread this document, occasional misspellings and typographical errors Sign Chris Taylor MD, TREV, [facility] Infectious Diseases Available via [employer] 11/06/2024 10:58 AM * Adama Prasad APRN [...] bumex PO 2mg daily). Continue telemetry Outpatient translator interpreter: Lauren Carlos yovany [place] Subjective/24 hour Events C/o significant pain. No [...] Continuous Glucose Sensor (FreeStyle Wallace [address]) [facility] INJECT 1 DEVICE INTO THE SKIN EVERY [...] Compared to previous outside study report from [facility] on 08/05/2024, Mitral and tricuspid regurgitation were [...] software and direct typing. Please excuse inadvertent digital media sales consultant and typing errors. Sign Adama Prasad, PRINTING PRESS MACHINIST 11/06/2024 10:06 AM * Dallas Rivers PA-C [...] Case IDs Date Procedure Surgeon Location Status [id number] 11/05/24 LEFT BELOW KNEE AMPUTATION Dallas Camejo MD [facility] OR Comp Plan Multimodal pain management DVT Prophylaxis: ASA 81mg PO BID Weight Bearing Status: NWB PT/OOB HV in place scant output overnight, will discuss with Dr. Camejo Appreciate Medicine, ID and Cardiology recs: for medical comanagement []TATIANNA pending []Blood Cultures Currently on Dapto, Ceftaroline House Father Stump biosolids management technician ordered Subjective No complaints. No CP,SOB,N/V. Pain [...] without problems. Last drink day before admission [facility] protocol ordered Diet: Diet Diabetic/ Calorie Controlled; Carb Counting 60g/meal 4647-1134 kcal DVT Px: SCDs - RIGHT (Knee High) Status: Full Code Consults placed: Procedures Inpatient consult to Internal Medicine Inpatient consult to Infectious Diseases (Specify provider ) Inpatient consult to Social Work Inpatient consult to Anesthesiology Inpatient consult to cardiology ([facility]) Inpatient consult to cardiac surgery Inpatient [...] Case IDs Date Procedure Surgeon Location Status [id number] 11/05/24 LEFT BELOW KNEE AMPUTATION Dallas Camejo MD [facility] OR [facility] WB status: NWB LLE Postop antibiotics: [...] from the original note were not included. [facility] CARDIOLOGY SERVICE CONSULT Date of Consult: 11/05/2024 Patient's Primary Care Physician: Lee Fabian MD Physician Requesting Consult: Orthopedic surgery Primary Tool Die Maker: Tool Die Maker at [facility] Reason for Consultation: Preop Admit Date: [...] doing TATIANNA first is not going to gear changer. Leg wounds are like the source [...] WOUND VAC; Surgeon: Dallas Camejo MD; Location: [facility] OR; Service: Orthopaedics; Laterality: Left; FOOT SURGERY Right x5 INCISION AND DRAINAGE FOOT Left [place] PROCEDURE MAZE AFIB OSTECTOMY CALCANEOUS Left 09/10/2024 Procedure: ANKLE PARTIAL CALCANECTOMY; Surgeon: Dallas Camejo MD; Location: [facility] OR; Service: Orthopaedics; Laterality: Left; wOUND [...] Continuous Glucose Sensor (FreeStyle Wallace [address]) [facility] INJECT 1 DEVICE INTO THE SKIN EVERY [...] Compared to previous outside study report from [facility] on 08/05/2024, Mitral and tricuspid regurgitation were not previously reported. Recommend transesophageal echocardiogram if clinically indicated. All additional appropriate imaging studies within the past 24 hours reviewed - images reviewed and independently interpreted. Sign: Nitish Stephen MD [facility] [place] 11/05/2024 2:43 PM * Hilda Alvarado RN - 11/05/2024 1:36 PM EST Images from the original note were not included. * Hilda Alvarado RN - 11/05/2024 1:00 PM EST Attending Anesthesiologist (JO-ANN) monitoring and aware of vitals during duration of block procedure. * Ena Mtz MD - 11/05/2024 9:42 AM EST Images from the original note were not included. [facility] INFECTIOUS DISEASE Consult progress Note Name: [...] faecium 10/27: Left foot wound culture at [place]: MRSA, Enterococcus faecalis, VRE, Corynebacterium speciesand gram-negative [...] 0851 Sign Ena Mtz MD, FACP, CWSP [facility] Infectious Diseases Available via [place] [employer] SUBJECTIVE Tmax 102.3 ??F Fevers overnight [...] not compromised. This report was generated using AmberAds Speaking dictation software. Although every attempt has [...] from the original note were not included. [facility] MEDICINE PROGRESS NOTE Assessment Mr. Blas [...] consult to Anesthesiology Inpatient consult to cardiology ([facility]) Barriers for discharge: IV antibiotics, fevers, [...] request it: Integrative Medicine Services available at [facility], including, Massage Therapy, and Reiki/Energy Therapy Social Work Spiritual Care Pharmacist Nutrition Patient declined resources at this time. Demographic Screening: Medical insurance - Medicare Community Leader involvement - No. Worker's compensation - No [...] will identify along with patient a personal service workers to provide updates. Interventions Provided and reviewed [...] were not included. Coverage for Dr. Mtz [facility] ID Progress Note Name: Blas Genao [...] ostectomy. -10/27: Left foot wound culture at [place]: MRSA, Enterococcus faecalis, VRE, Corynebacterium species and [...] tablet 975 mg 975 mg Oral Q6H [facility] POOJA Arias 975 mg at [...] Nightly POOJA Arias 2 tablet at 11/03/24 2800 ALLERGIES: Allergies Allergen Reactions Lisinopril Other (See [...] not compromised This report was generated using AmberAds Speaking dictation software. Although every attempt has been made by the provider to proofread this document, occasional misspellings and typographical errors Sign Chris Taylor MD, FIDSA, FACP [facility] Infectious Diseases Available via [employer] 11/04/2024 9:13 AM * Juaquin Kern MD [...] Diet Diabetic/ Calorie Controlled; Carb Counting 60g/meal 3229-5562 kcal Diet NPO; Meds DVT Px: SCDs - Bilateral (Knee High) Status: Full Code Consults placed: Procedures Inpatient consult to Internal Medicine Inpatient consult to Infectious Diseases (Specify provider ) Inpatient consult to Social Work Inpatient consult to Anesthesiology Inpatient consult to cardiology ([facility]) Barriers for discharge: IV antibiotics, fevers, [...] case request and [facility] OR front office secretary notified [x]Abx home school liaison officer to OR (2g ancef) []Pre-Op Noes to [...] Home alone Current Living Arrangements home (1-level, [facility]) Primary Care Provided by self Provides [...] or living in a intermediate (including now)? N Food Insecurity Within the [...] In the past 12 months has the [employer], [employer], oil, or water [employer] threatened to shut off services in your [...] 30 days Current Outpatient/Agency/Support Group homecare agency ([facility] - SN 3 weekly (wound care) & POWDER BLENDER [employer] POURER x 2 weekly) Concerns to be Addressed home safety;discharge planning Patient/Family Anticipates Transition to home with help/services;inpatient rehabilitation facility Patient/Family Anticipated Services at Transition home health care;fdc;other (see comments) (inpatient rehab) Transportation Anticipated family or friend will provide;health plan transportation Current Discharge Risk physical impairment;lives alone;dependent with mobility/activities of daily living;chronically ill Discharge Coordination/Tasks Status Post Discharge Needs/Treatments PT;OT;Wound Care;Fci Home Visit Patient/Patient Senior Financial Reporting Accountant Provided With Choices Of Homecare Company Preferences(s) Homecare Company Preference(s) [facility] * Juaquin Kern MD - 11/03/2024 [...] Diet Diabetic/ Calorie Controlled; Carb Counting 60g/meal 3257-5895 kcal DVT Px: SCDs Status: Full Code [...] []CMG conslt []ID consult []PICC line (ordered) []House Father clinic: pre-amputation education/fitting []Blood cultures: pending []Dressing [...] Patient arrived around 1800 this evening to [place] [id number] in no acute distress. Placed on contact [...] (she has seen patient in the past) -House Father to be called for pre-amputation education/fitting in [...] Objective Past Medical History: Diagnosis Date A-fib ([facility]) Acute osteomyelitis ([facility]) Atrial flutter ([facility]) Cardiac pacemaker 2016 Carotid atherosclerosis Charcot's joint of right foot 2015 Chronic sciatica Complete AV block ([facility]) Diabetes mellitus ([facility]) TYPE II Diabetic foot ulcer ([facility]) ED (erectile dysfunction) Edema ESBL (extended spectrum beta-lactamase) producing bacteria infection GERD (gastroesophageal reflux disease) GI bleed Hyperlipidemia Hypertension Leukocytosis Metabolic bone disease Multiple drug resistant organism (MDRO) culture positive Non healing left heel wound Obesity Osteoarthrosis Osteomyelitis of both feet ([facility]) PAD (peripheral artery disease) ([facility]) Primary osteoarthritis of knee Proteinuria Renal osteodystrophy Restless legs syndrome (RLS) no meds, lyrica helps Septic joint of left knee joint ([facility]) Sleep apnea BiPap Smoker Stage 3a chronic kidney disease (CKD) ([facility]) Past Surgical History: Procedure Laterality Date AMPUTATION [...] WOUND VAC; Surgeon: Dallas Camejo MD; Location: [facility] OR; Service: Orthopaedics; Laterality: Left; FOOT SURGERY Right x5 INCISION AND DRAINAGE FOOT Left [place] PROCEDURE MAZE AFIB OSTECTOMY CALCANEOUS Left 09/10/2024 Procedure: ANKLE PARTIAL CALCANECTOMY; Surgeon: Dallas Camejo MD; Location: [facility] OR; Service: Orthopaedics; Laterality: Left; wOUND [...] Continuous Glucose Sensor (FreeStyle Wallace [address]) [facility] INJECT 1 DEVICE INTO THE SKIN EVERY [...] PAD, RLS and CKD with presents to [facility] inpatient floor for known left calc osteomyelitis [...] (she has seen patient in the past) -House Father to be called for pre-amputation education/fitting in [...] PAD, RLS and CKD3 that presents to [facility] inpatient floor as a direct admit under [...] both feet (HCC) PAD (peripheral artery disease) ([facility]) Primary osteoarthritis of knee Proteinuria Renal osteodystrophy Restless legs syndrome (RLS) no meds, lyrica helps Septic joint of left knee joint ([facility]) Sleep apnea BiPap Smoker Stage 3a chronic kidney disease (CKD) ([facility]) Past Surgical History: Procedure Laterality Date AMPUTATION [...] WOUND VAC; Surgeon: Dallas Camejo MD; Location: [facility] OR; Service: Orthopaedics; Laterality: Left; FOOT SURGERY Right x5 INCISION AND DRAINAGE FOOT Left OH PROCEDURE MAZE AFIB OSTECTOMY CALCANEOUS Left 09/10/2024 Procedure: ANKLE PARTIAL CALCANECTOMY; Surgeon: Dallas Camejo MD; Location: [facility] OR; Service: Orthopaedics; Laterality: Left; wOUND [...] Continuous Glucose Sensor (FreeStyle Wallace 3 Sensor) [facility] INJECT 1 DEVICE INTO THE SKIN EVERY [...] tablet 975 mg 975 mg, PO, Q6H [facility] Ordered amiODARONE (PACERONE) tablet 200 [...] to verify the correct patient, procedure, equipment, learning support specialist and site/side marked as required. [...] Representatives. HCR- Blas and Jessica. Copy in [employer]. SW to f/u with pt this afternoon. Addendum: 1:30pm SASKIA met with pt today for support. Blas was sitting in his chair, open to visit. Very social and pleasant. Very future oriented with the hopes of a return to work, if he chooses based on his recovery. 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 He is anticipating rehab in a [...] meets clinical indications for proline placement for senior care antibiotics in the setting of osteomyelitis [...] guidelines to the screening nurse at ext: [id number] Please direct any questions regarding procedure time/ date to the specific imaging modality: US: ext: [id number] CT: ext: 16552 Fluoroscopy: ext: [id number] IR: ext: [id number] Consent: The patient is able to give [...] injection 5,000 Units On hold since Fri11/16/2024 [id number] until manually unheld; held by Herberth Whitmore [...] 1.8mg/dL - regarding the question of senior living PICC for Abx. This patient is high risk for developing ESRD and need for AV access. As such his peripheral veins should be preserved especially with his vasculopath history. As such he should NOT receive a picc. Please pursue tunneled proline / mleara. 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) Acute osteomyelitis ([facility]) Atrial flutter ([facility]) Cardiac pacemaker 2015 Carotid atherosclerosis Charcot's joint of right foot 2015 Chronic sciatica Complete AV block ([facility]) Diabetes mellitus ([facility]) TYPE II Diabetic foot ulcer ([facility]) ED (erectile dysfunction) Edema ESBL (extended spectrum beta-lactamase) producing bacteria infection GERD (gastroesophageal reflux disease) GI bleed Hyperlipidemia Hypertension Leukocytosis Metabolic bone disease Multiple drug resistant organism (MDRO) culture positive Non healing left heel wound Obesity Osteoarthrosis Osteomyelitis of both feet ([facility]) PAD (peripheral artery disease) Primary osteoarthritis of knee Proteinuria Renal osteodystrophy Restless legs syndrome (RLS) no meds, lyrica helps Septic joint of left knee joint ([facility]) Sleep apnea BiPap Smoker Stage 3a chronic kidney disease (CKD) ([facility]) Past Surgical History: Procedure Laterality Date AMPUTATION Right 2018 TMA AMPUTATION BELOW KNEE Left 11/05/2024 Procedure: LEFT BELOW KNEE AMPUTATION; Surgeon: Dallas Camejo MD; Location: [facility]; Service: Orthopaedics; Laterality: Left; AORTOGRAM- ABDOMINAL Left 09/15/2024 Procedure: LEFT LOWER EXTREMITY ANGIOGRAM; Surgeon: Delbert Mcintosh MD; Location: [facility] OR; Service: Peripheral Vascular; Laterality: Left; BARIATRIC SURGERY 2018 CARDIAC ELECTROPHYSIOLOGY STUDY AND ABLATION x5 CARDIAC PACEMAKER PLACEMENT 2016 CARDIAC SURGERY 2020 watchman device CARDIOVERSION 07/2024 CC PERIPHERAL ANGIOGRAPHY Left 07/2024 LE CHANGE DRESSING WOUND VAC Left 09/10/2024 Procedure: APPLICATION OF WOUND VAC; Surgeon: Dallas Camejo MD; Location: [facility] OR; Service: Orthopaedics; Laterality: Left; EXTRACTION LEAD(S) LASER FROM DUAL PM SYSTEM Left 11/17/2024 Procedure: Extraction lead(s) laser from dual PM system; [id number]; Surgeon: Rui Pabon MD; Location: [facility] OR; Service: Electrophysiology; Laterality: Left; FOOT SURGERY Right x5 INCISION AND DRAINAGE FOOT Left INSERT/REPLACE LEADLESS PACEMAKER N/A 11/17/2024 Procedure: Micra Leadless Pacemaker Insert/Replacement; [id number]; Surgeon: Rui Pabon MD; Location: [facility] OR; Service: Electrophysiology; Laterality: N/A; [place] PROCEDURE MAZE AFIB OSTECTOMY CALCANEOUS Left 09/10/2024 Procedure: ANKLE PARTIAL CALCANECTOMY; Surgeon: Dallas Camejo MD; Location: [facility] OR; Service: Orthopaedics; Laterality: Left; wOUND [...] Continuous Glucose Sensor (FreeStyle Wallace [address] S[address]) [facility] INJECT 1 DEVICE INTO THE SKIN EVERY [...] empagliflozin (JARDIANCE) 25 mg On hold since [facility] 11/04/2024 at 1503 until manually unheld; [...] injection 5,000 Units On hold since Fri11/16/2024 [id number] until manually unheld; held by Herberth Whitmore [...] found for: TACROLIMUS No results found for: [id number] , TOTVOL , CRCLR , PERIOD No [...] Sign: Anmol Reynoso MD 11/19/2024 10:09 AM [facility] Nephrology Office [phone] * Gilda May RN - 11/12/2024 3:31 PM EST [facility] Wound Care Consult Visit Date: 11/12/2024 Patient Name: Blas Genao Date of : 1960 Reason for Consult: initial Wound Team Summary Assessment: 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 Had been using [...] nighttime disruptions as medically appropriate. Maintain regular [id number] including appropriate lighting in the room. Consider [...] limb. Per orders patient is to have biosolids management technician on AAT, noted that residual limb was wrapped with srinivas wrap vs biosolids management technician. Reached out to orthopedic PA in regards to biosolids management technician for patient. Patient is motivated to participate [...] W/C, EMS transport and home PT. Current [facility] Basic Mobility Score: 14 OT 11/09 [...] with strength, balance and activity tolerance. Current [facility] Daily Activity Score: 15 Outcomes score [facility] The Activity Measure for Post-Acute Care [...] Smoker Stage 3a chronic kidney disease (CKD) ([facility]) Past Surgical History: Procedure Laterality Date AMPUTATION Right 2017 TMA AMPUTATION BELOW KNEE Left 11/05/2024 Procedure: LEFT BELOW KNEE AMPUTATION; Surgeon: Dallas Camejo MD; Location: [facility] OR; Service: Orthopaedics; Laterality: Left; AORTOGRAM- ABDOMINAL [...] Surgeon: Dallas Camejo MD; Location: [facility] OR; Service: Orthopaedics; Laterality: Left; FOOT SURGERY Right x5 INCISION AND DRAINAGE FOOT Left OH PROCEDURE MAZE AFIB OSTECTOMY CALCANEOUS Left 09/10/2024 Procedure: ANKLE PARTIAL CALCANECTOMY; Surgeon: Dallas Camejo MD; Location: [facility] OR; Service: Orthopaedics; Laterality: Left; wOUND [...] Continuous Glucose Sensor (FreeStyle Wallace 3 S[address]) [facility] INJECT 1 DEVICE INTO THE SKIN EVERY [...] amputation. Left BKA with ampushield and stump biosolids management technician Skin: No skin breakdown to exposed skin [...] Hazel MD Physical Medicine & Rehabilitation, PGY-2 Formerly [facility] Available on Int[employer] secure chat Associated attestation - Lucho Red [...] ESTAssociated Order(s): IP CONSULT TO NUTRITION SERVICES [facility] Nutrition Note Visit Type: initial assessment [...] ??? Stage 3a chronic kidney disease (CKD) (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 He typically has an egg sandwich [...] - 2600 Kcals/day (20 - 25 Kcals/kg) [place]: RMR ([place]-St. Jeor Equation): 1920.63 [place]-St. Jeor (Considerations): 6293-8493 kcal (MSJ +1.2-1.3) based on 104 kg (229 lb 4.5 oz) (reported dry weight) Protein Needs: 117 - 141 gm, (1.5 - 1.8g/kg) based on 78.1 kg (172 lb 2.9 oz) (Adjusted IBW) Fluids: 2500ml based on Estimated/Assessed Carbohydrates Needs: 75 g CHO/meal Current Diet: Diet Diabetic/ Calorie Controlled; Carb Counting 60g/meal 0547-3454 kcal; 2 gm NA (Low Sodium); 2 [...] Compared to previous outside study report from [facility] on 08/05/2024, Mitral and tricuspid regurgitation were [...] Smoker Stage 3a chronic kidney disease (CKD) ([facility]) Past Surgical History: Procedure Laterality Date AMPUTATION Right 2017 TMA AMPUTATION BELOW KNEE Left 11/05/2024 Procedure: LEFT BELOW KNEE AMPUTATION; Surgeon: Dallas Camejo MD; Location: [facility]; Service: Orthopaedics; Laterality: Left; AORTOGRAM- ABDOMINAL Left 09/15/2024 Procedure: LEFT LOWER EXTREMITY ANGIOGRAM; Surgeon: Delbert Mcintosh MD; Location: [facility]; Service: Peripheral Vascular; Laterality: Left; BARIATRIC SURGERY 2018 CARDIAC ELECTROPHYSIOLOGY STUDY AND ABLATION x5 CARDIAC PACEMAKER PLACEMENT 2016 CARDIAC SURGERY 2020 watchman device CARDIOVERSION 07/2024 CC PERIPHERAL ANGIOGRAPHY Left 07/2024 LE CHANGE DRESSING WOUND VAC Left 09/10/2024 Procedure: APPLICATION OF WOUND VAC; Surgeon: Dallas Camejo MD; Location: [facility]; Service: Orthopaedics; Laterality: Left; FOOT SURGERY Right x5 INCISION AND DRAINAGE FOOT Left OH PROCEDURE MAZE AFIB OSTECTOMY CALCANEOUS Left 09/10/2024 Procedure: ANKLE PARTIAL CALCANECTOMY; Surgeon: Dallas Camejo MD; Location: [facility]; Service: Orthopaedics; Laterality: Left; wOUND PARTIALLY [...] Continuous Glucose Sensor (FreeStyle Wallace [address]) [facility] INJECT 1 DEVICE INTO THE SKIN EVERY [...] mouth 2(two) times a day. [facility]05[facility] acetaminophen, 975 mg, Oral, Q6H [...] assessment, and plan as detailed in the steward/stewardess deck's note with the following exceptions, clarifications, or [...] from the original note were not included. [facility] CARDIOLOGY SERVICE CONSULT Date of Consult: 11/04/2024 Patient's Primary Care Physician: Lee Fabian MD Physician Requesting Consult: Orthopedic surgery Primary Tool Die Maker: Tool Die Maker at [facility] Reason for Consultation: Preop Admit Date: [...] Objective Past Medical History: Diagnosis Date A-fib ([facility]) Acute osteomyelitis (HCC) Atrial flutter ([facility]) Cardiac pacemaker 2016 Carotid atherosclerosis Charcot's joint of right foot 2015 Chronic sciatica Complete AV block (HCC) Diabetes mellitus ([facility]) TYPE II Diabetic foot ulcer ([facility]) ED (erectile dysfunction) Edema ESBL (extended spectrum beta-lactamase) producing bacteria infection GERD (gastroesophageal reflux disease) GI bleed Hyperlipidemia Hypertension Leukocytosis Metabolic bone disease Multiple drug resistant organism (MDRO) culture positive Non healing left heel wound Obesity Osteoarthrosis Osteomyelitis of both feet ([facility]) PAD (peripheral artery disease) ([facility]) Primary osteoarthritis of knee Proteinuria Renal osteodystrophy Restless legs syndrome (RLS) no meds, lyrica helps Septic joint of left knee joint ([facility]) Sleep apnea BiPap Smoker Stage 3a chronic kidney disease (CKD) ([facility]) Reviewed Past Surgical History: Procedure Laterality Date AMPUTATION Right 2017 TMA AORTOGRAM- ABDOMINAL Left 09/15/2024 Procedure: LEFT LOWER EXTREMITY ANGIOGRAM; Surgeon: Delbert Mcintosh MD; Location: [facility]; Service: Peripheral Vascular; Laterality: Left; BARIATRIC SURGERY 2018 CARDIAC ELECTROPHYSIOLOGY STUDY AND ABLATION x5 CARDIAC PACEMAKER PLACEMENT 2016 CARDIAC SURGERY 2020 watchman device CARDIOVERSION 07/2024 CC PERIPHERAL ANGIOGRAPHY Left 07/2024 LE CHANGE DRESSING WOUND VAC Left 09/10/2024 Procedure: APPLICATION OF WOUND VAC; Surgeon: Dallas Camejo MD; Location: [facility] OR; Service: Orthopaedics; Laterality: Left; FOOT SURGERY Right x5 INCISION AND DRAINAGE FOOT Left OH PROCEDURE MAZE AFIB OSTECTOMY CALCANEOUS Left 09/10/2024 Procedure: ANKLE PARTIAL CALCANECTOMY; Surgeon: Dallas Camejo MD; Location: [facility]; Service: Orthopaedics; Laterality: Left; wOUND PARTIALLY [...] 9 bpm Confirmed by MD Danya, Deep ([id number]) on 11/03/2024 4:30:25 PM Echocardiogram (TTE) Comprehensive [...] Compared to previous outside study report from [facility] on 08/05/2024, Mitral and tricuspid regurgitation were not previously reported. Recommend transesophageal echocardiogram if clinically indicated. All additional appropriate imaging studies within the past 24 hours reviewed - images reviewed and independently interpreted. Sign: Nitish Stephen MD [facility] Heart & Vascular [place] 11/04/2024 3:31 PM * Hilda Almodovar, [facility] - 11/04/2024 10:57 AM ESTAssociated Order(s): [...] has a past medical history of A-fib ([facility]), Acute osteomyelitis ([facility]), Atrial flutter (HCC),Cardiac pacemaker (2015), Carotid atherosclerosis, Charcot's joint of right foot (2014), Chronic sciatica, Complete AV block ([facility]), Diabetes mellitus ([facility]), Diabetic foot ulcer ([facility]), ED (erectile dysfunction), Edema, ESBL (extended spectrum beta-lactamase) producing bacteria infection, GERD (gastroesophageal reflux disease), GI bleed, Hyperlipidemia, Hypertension, Leukocytosis, Metabolic bone disease, Multiple drug resistant organism (MDRO) culture positive, Non healing left heel wound, Obesity, Osteoarthrosis, Osteomyelitis of both feet (HCC), PAD (peripheral artery disease) ([facility]), Primary osteoarthritis of knee, Proteinuria, Renal osteodystrophy, [...] and supports. Pt has been working at [employer] in [facility] up until recently. He shared he is deemed disabledunder Social Security Disability though has been working under ticket to work program. Pt states does not anticipate being able to return to his line of work and states he will get senior care disability. Discussed MA Paid Leave. Pt states [...] Gave pt info and literature on TA [facility] [employer]. Pt is familiar with this service though has not used it. He was glad to have the information. Thereis no application process for this service. Anyone 60 or older that lives within [employer]'s service area can use it and make reservations at [phone]. Pt indicates being able to facilitate rides [...] Patient Psychosocial History Demographic Information Preferred Language: Vietnamese Preferred Name: Blas Relationship status: Single Children: Blas Genao Adult Son Legal next of kin [phone] Advance Directive Advance Directives:Advance Directives Does Patient Have Advance Directives?: yes Living Will: yes, copy requested Healthcare Senior Financial Reporting Accountant: yes, copy requested Legally Authorized Senior Financial Reporting Accountant Blas Genao Adult Son Legal next of kin [phone] Living Environment Household Members: pt and 3 pet cats Living Arrangements: House Does the patient have any environmental/safety concerns? No Support System Who currently provides assistance/support for the patient? Son , friends Also has homecare [facility]vs [facility] Quality of support systems? Supportive Patient [...] the original note were not included. [facility] INFECTIOUS DISEASE CONSULTATION Date of Consult: [...] Negative 10/27: Left foot wound culture at [facility]: MRSA, Enterococcus faecalis, VRE, Corynebacterium speciesand gram-negative [...] Orders 11/02/241942 Sign Ena Mtz MD, FACP, [facility] Infectious Diseases Available via [employer] SUBJECTIVE HISTORY OF PRESENT ILLNESS: This is a 63 y.o. year-old male complex medical history of atrial fibrillation, cardiac pacemaker, Watchman device, diabetes type II, history of ESBL infection, peripheral vascular disease, chronic kidney disease, diabetic foot infection/osteomyelitis, status post right TMA, recent hospitalization at [facility] for left diabetic foot infection. He underwent debridement of the left foot on 08/22 and repeat debridement on 08/24. Intraoperative cultures then revealed Enterococcus, ESBL E. coli and was treated with amoxicillin, meropenem and Flagyl. Fernanda parapsilosis was thought to be a contaminant. He was admitted to [facility] and underwent left calcaneus ostectomy on [...] HISTORY: Past Medical History: Diagnosis Date A-fib ([facility]) Acute osteomyelitis ([facility]) Atrial flutter ([facility]) Cardiac pacemaker 2016 Carotid atherosclerosis Charcot's joint of right foot 2015 Chronic sciatica Complete AV block ([facility]) Diabetes mellitus ([facility]) TYPE II Diabetic foot ulcer ([facility]) ED (erectile dysfunction) Edema ESBL (extended spectrum beta-lactamase) producing bacteria infection GERD (gastroesophageal reflux disease) GI bleed Hyperlipidemia Hypertension Leukocytosis Metabolic bone disease Multiple drug resistant organism (MDRO) culture positive Non healing left heel wound Obesity Osteoarthrosis Osteomyelitis of both feet ([facility]) PAD (peripheral artery disease) ([facility]) Primary osteoarthritis of knee Proteinuria Renal osteodystrophy Restless legs syndrome (RLS) no meds, lyrica helps Septic joint of left knee joint ([facility]) Sleep apnea BiPap Smoker Stage 3a chronic kidney disease (CKD) ([facility]) PAST SURGICAL HISTORY: Past Surgical History: Procedure [...] WOUND VAC; Surgeon: Dallas Camejo MD; Location: [facility] OR; Service: Orthopaedics; Laterality: Left; FOOT SURGERY Right x5 INCISION AND DRAINAGE FOOT Left [place] PROCEDURE MAZE AFIB OSTECTOMY CALCANEOUS Left 09/10/2024 Procedure: ANKLE PARTIAL CALCANECTOMY; Surgeon: Dallas Camejo MD; Location: [facility] OR; Service: Orthopaedics; Laterality: Left; wOUND [...] not compromised. This report was generated using [employer] dictation software. Although every attempt has been made by the provider to proofread this document, occasional misspellings and typographical errors may still be present. documented in this encounter Miscellaneous Notes * Plan of Care - Mitesh Caldwell RN - 11/25/2024 7:51 PM EST Patient being discharged home with home services. Patient has a proline and will require senior care antibiotics. Option care educated patient on [...] Aguilar RD - 11/24/2024 12:27 PM EST [facility] Nutrition Note Visit Type: follow up assessment Reason for Dietitian/DTR Visit: at nutrition risk. Reason for Admission: Acute osteomyelitis of left calcaneus (HCC) Pertinent Medical History: Past Medical History: Diagnosis Date A-fib (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 He typically has an egg sandwich [...] Aspiration precautions Diet Cardiac; Carb Counting 60g/meal 3715-7487 kcal; 2 gm NA (Low Sodium); Low [...] to be available at inpatient rehab for director long term care antibiotics. Call ling within reach, safety precautions [...] IV antibiotics continue. [facility]ending placement at [facility] for [facility] care for d/c. Call ling within reach, safety precautions maintained. Nelson Iqbal 11/23/2024 7:15 PM * Plan of Care - Ellyn Patel RN - 11/23/2024 8:07 AM EST Plan of Care Reviewed With: patient Outcome Evaluation: Patient without complaints during the shift. Sleep study completed on room air.Plan is for discharge to inpatient rehab for senior care antibiotics when bed is available. Ellyn Patel [...] of Care Review Outcome: Progressing Vpaced on hvkgyhe-Knqlxfru-mytydkp on IV Cubicin andIV Rocephin-Plan for PICC placement ?today for senior care anti-Bx's-see flowsheet for full assessment/vs Hansa [...] from the original note were not included. [address] [address] OPERATIVE REPORT Patient Name: Blas Genao Date of : 1960 Date of Procedure: 11/17/2024 Surgeons and Role: * Rui Pabon MD - Primary * Corbin Lamb APRN - Physician Manufacturing Recruiter Pre-op Diagnosis: Pacemaker infection, subsequent encounter [T82.7XXD] Post-Op Diagnosis Codes: * Pacemaker infection, subsequent encounter [T82.7XXD] Details of Procedure Procedure(s): Extraction lead(s) laser from dual PM system; 03760 Micra Leadless Pacemaker Insert/Replacement; 77657 Additional Procedures Surgeon: Rui Pabon MD Manufacturing Recruiter: : : Corbin Lamb APRN Anesthesia: Monitor [...] femoral venous access was obtained. A 12 Indonesian sheath was placed in the right femoral vein. Through this an Amplatz stiff wire was advanced under fluoroscopic visualization to the right IJ. Using ultrasound-guided Seldinger technique left femoral venous access was obtained. 8 Indonesian sheath was placed in left femoral vein. [...] were pulled back. Active-fixation mechanisms on both [id number] active-fixation leads were retracted. Leads were cut. EZ interlocking stylette's were placed down both right atrial right ventricular leads and deployed. External silk sutures were used for additional support. We then began with a 14 Indonesian laser sheath. Under fluoroscopic visualization we started with the right ventricular lead. 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 We were able to progressto the innominate area. Here we reached the innominate region and had significant fibrosis. We then remove the 14 Indonesian laser sheath and moved to the right [...] then used the right femoral venous 12 Indonesian sheath and Amplatz wire which was in [...] ventricle positioning on the septum. ADAME and LUXEMBOURGISH position confirmed our placement.We did an initial deployment here. Sensing of paced R wave was 12 mV. Device impedance was 520 ohms. Threshold was initially 1.5 V that decreased to 1.2 V. However remained at 1.2 V at 0.24 ms. We therefore retrieved the device back into the deploying sheath. We then movedthe device slightly superior. ADAME and LUXEMBOURGISH position to confirm septal position. Initial testing [...] Z stitch was placed around the 8 Indonesian sheath as well and the sheath was [...] Implant Name Type Inv. Item Serial No. Field Map Technician Lot No. LRB No. Used Action [id number] PACEMAKER CARDIAC MICRA AV2 LDLS BN - [id number] Pacemaker [id number] PACEMAKER CARDIAC MICRA AV2 LDLS BN [id number] [employer] Left 1 Implanted Specimens: Dual-chamber pacemaker generator; chronic right atrial 5076 active- fixation Medtronic lead; chronic right ventricular 5076 active-fixation Medtronic lead; 2 sewing rings. Disposition: PACU Condition:Good Rui Pabon MD Date: 11/17/2024 Cc: Lee Fabian MD * Plan of [facility] - Telma Aguilar, RD - 11/17/2024 10:19 AM EST [facility] Nutrition Note Visit Type: follow up [...] Smoker Stage 3a chronic kidney disease (CKD) (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 He typically has an egg sandwich [...] Daily Energy and Protein Needs: Energy Needs: River Edge: RMR (River Edge-St. Jeor Equation): 1920.63 River Edge-St. Jeor (Considerations): 2027-5973 kcal (MSJ +1.2-1.3) based on 104 kg [...] able to make needs known. NPO at NC for pacemaker extraction. Placed on 1L NC [...] with Dr. Daniel Ramos MD Neurology PGY-2 [facility] * Hospital Course - Gianluca Calles [...] while on IV antibiotics. Fax results to [phone]. Patient will need to be scheduled [...] R plantar foot, typically followed by wound center/machinist 2nd shift outpatient near patient's home. Had been using [...] at discharge summary. Tracy Lopez RN, CDS [phone] * Plan of Care - Eunice Khan [...] no change Outcome Evaluation: Assumed care from [id number]. Pt alert and oriented x4. Seems to [...] Case IDs Date Procedure Surgeon Location Status [id number] 11/05/24 LEFT BELOW KNEE AMPUTATION Dallas Camejo [...] 4 mg q3h PRN for severe pain ([id number]). 1x dose of liquid dilaudid 1mg given [...] Compared to previous outside study report from [facility] on 08/05/2024, Mitral and tricuspid regurgitation were [...] help guide diuresis if he returns to [place] before transfer. If he goes directly to [...] options, pt agreeable to referrals in the [facility] area. Referrals placed to [place] and [facility] rehabs Recommendation:inpt rehab Problem: Adult Inpatient [...] s/p PPM, chronic diastolic CHF, HTH, HLD, MREVIN on CPAP, CKDIII, PAD/PVD who presented as [...] Compared to previous outside study report from [facility] on 08/05/2024, Mitral and tricuspid regurgitation were [...] legal medical record Tracy Lopez RN, CDS [phone] * Provider Documentation Query - Shay Martin [...] legal medical record. Tracy Lopez RN, CDS [phone] * Plan of Care - Krystina Felipe [...] in [place] d/t need for rescue NIV. [facility] 16 on 11/06-will needupdated PT/OT notes, pt active with [facility], may need inpt rehab. CM will [...] Compared to previous outside study report from [facility] on 08/05/2024, Mitral and tricuspid regurgitation were [...] to prior. Interpreted by: Roberto Tolbert MD Associate Application Developer XR Chest 1 view-Portable (STAT) Final Result Bilateral reticulonodular opacities concerning for interstitial edema. Superimposed atypical infection cannot be ruled out. Interpreted by: David Vogt DO Associate Application Developer I personally reviewed the images and the resident's preliminary report and AGREE with the report as it is now presented (RADPAL1). Echocardiogram (TTE) Comprehensive (Contrast PRN) Final Result Transesophageal Echocardiogram (Results Pending) CT Head w/contrast (Results Pending) Rafiq Chakraborty MD PGY-3 [facility] Internal Medicine [place] text preferred 11/07/24 11:26 AM * Plan [...] LBM 2/8. Dsg to L BKA cdi, House Father biosolids management technician in place. Pt reporting adequate paincontrol this [...] level of independence with self-care tasks. Baseline [facility] Daily Activity Score: 24 Current [facility] Daily Activity Score: 18 Objective Data Cognitive Status: Alert+oriented x4, follows multi step instructions and communicates appropriately Cognitive Function: Attention: intact Memory/recall: intact Safety Awareness: intact, however would benefit from further education and training Insight: good, however would benefit from further education and training program developer Function: intact Activities of Daily Living: Grooming/Oral [...] Smoker Stage 3a chronic kidney disease (CKD) ([facility]) Past Surgical History: Procedure Laterality Date AMPUTATION [...] Surgeon: Dallas Camejo MD; Location: [facility]; Service: Orthopaedics; Laterality: Left; FOOT SURGERY Right x5 INCISION AND DRAINAGE FOOT Left OH PROCEDURE MAZE AFIB OSTECTOMY CALCANEOUS Left 09/10/2024 Procedure: ANKLE PARTIAL CALCANECTOMY; Surgeon: Dallas Camejo MD; Location: [facility] OR; Service: Orthopaedics; Laterality: Left; wOUND PARTIALLY [...] Progressive Mobility Level Achieved Transferring to Chair [facility] Daily Activity Putting on and taking off Lower Body Clothing? 2 Bathing (including washing/rinsing/drying)? 3 Toileting (includes using toilet, bedpan, or urinal)? 2 Putting on and taking off upper body clothing? 4 Taking care of personal grooming such as brushing teeth? 3 Eating meals? 4 [facility] Daily Activity Score 18 Therapy Assessment/Plan [...] OT goal 1 Bathing Goal 1 (OT) [place] Level/Cues Needed (Bathing Goal 1, OT) modified independence Activity/Device (Bathing Goal 1, OT) bathing skills, all Time Frame (Bathing Goal 1, OT) 2 weeks Dressing Goal 1 (OT) Activity/Device (Dressing Goal 1, OT) lower body dressing Time Frame (Dressing Goal 1, OT) 1 week [place]/Cues Needed (Dressing Goal 1, OT) modified independence Toileting Goal 1 (OT) Activity/Device (Toileting Goal 1, OT) toileting skills, all Time Frame (Toileting Goal 1, OT) 1 week [place] Level/Cues Needed (Toileting Goal 1, OT) modified [...] from the original note were not included. [facility] [address] [place] [phone] OPERATIVE REPORT Patient Name: Blas Genao Date [...] Type Source Tests Collected by Time Destination [id number] : Left leg below the knee amputation [...] see op note Anesthesia: general Staff: Internal Audit Senior Manager: Mary Emery RN Scrub Precepting: Binta Griffith CST Internal Audit Senior Manager Relief: Cynthia Desai RN Estimated Blood Loss: * No values recorded between 11/05/2024 2:06 PM and 11/05/2024 3:22 PM * Specimens: ID Type Source Tests Collected by Time Destination [id number] : Left leg below the knee amputation [...] SHUBHAM Triana MD Anesthesia: general Staff: Internal Audit Senior Manager: Mary Emery RN Scrub Precepting: Binta Griffith CST Internal Audit Senior Manager Relief: Cynthia Desai RN Estimated Blood Loss: 25 ml Specimens: ID Type Source Tests Collected by Time Destination [id number] : Left leg below the knee amputation [...] cards Consults: Needs a postop eval from [facility]. Already being followed by ID, cards, and [...] Plan for OR today. Will have TATIANNA. Collections Clerk to follow Naveen Kebede 11/05/2024 9:29 AM [...] doing TATIANNA first is not going to gear changer. Leg wounds are like the source that has now seeded the valves and likely have involved thePPM. Will eventually need PP, evaluation and extraction afterwards. - Proceed with BKA - ABx per ID - Will need TATIANNA afterwards - Consider CT head to rule out septic emboli to brain petty with acute mental status change. Nitish Stephen MD [facility] T: [phone] F: [phone] Main Office: [address] [place] [address] * Provider Documentation Query - Juaquin Kern [...] at discharge summary. Tracy Lopez RN, CDS [phone] * Plan of Care - Belkys Diaz [...] Care Review Outcome: Progressing Flowsheets (Taken 11/04/2024 3299) Plan of Care Reviewed With: patient Progress: [...] Note Assessment completed with patient and/or patient's employee representative, medical record review and discussion with clinical team. CC met with the patient using social distancing. Provided a Case Coordination packet with contact information, CC pamphlet and Your Next Step: Care Outside the Hospital brochure to the patient and/or patient employee representative. Summary: 63 yo M admitted for [...] home health services. Patient is active with [facility] for SN & [facility] svs. Patient went to a local wound [...] -Driss KEITAA for resumption of SN & [facility] [employer], requested addition of PT & OT to POC Barriers to discharge: OR 11/05 House Father - P2P requested ID plan PT/OT evals [...] at Transition: (inpatient rehab) home health care fdc other (see comments) Patient/Family Anticipates Transition to: home with help/services inpatient rehabilitation facility Current Outpatient/Agency/Support Group: ([facility] - SN 3 weekly (wound care) & [facility] x 2 weekly) homecare agency [facility]em[facility] Bull [...] Info) Description 12/07/2024 1:30 PM EDT Appointment [facility] Heart & Vascular [place] - Electrophysiology [address] [place] [phone] Gretel Hinds, PRINTING PRESS MACHINIST [address] [address] 12/14/2024 2:00 PM EDT Office Visit [facility] [address] [place] [phone] Dallas Camejo MD [address] [place] [address] 12/16/2024 8:30 AM EDT Office Visit [facility] Infectious Disease [address] [place] [phone] Ena Mtz MD [address] [place] [address] Pending Results Name Type Priority Associated Diagnoses [...] AM EST PM SINGLE LEAD EVAL WITH PROGRAM,[id number] Routine 11/18/2024 7:45 AM EST COMPLETE BLOOD [...] EST PM DUAL LEAD EVAL WITH PROGRAMMING, [id number] Routine 11/12/2024 1:15 PM EST POCT GLUCOSE, [...] EST PM DUAL LEAD EVAL WITH PROGRAMMING, [id number] Routine 11/11/2024 4:33 PM EST ECHOCARDIOGRAM TRANSESOPHAGEAL [...] CARE TEST O RDERALUCILLE Performing Organization Address [facility] Phone Number [facility] See Below * (ABNORMAL) POCT Glucose, Fingerstick (11/25/2024 8:40 AM EST) POC Glucose 150(H) 65 - 99 mg/dL 11/25/2024 8:41 AM EST Blood specimen / Unknown 11/25/2024 8:40 AM EST 11/25/2024 8:41 AM EST Dallas Camejo MD POINT OF CARE TEST O RDERABLES Performing Organization Address [facility] Co in Phone Number [facility] See Below * (ABNORMAL) POCT Glucose, Fingerstick (11/24/2024 4:56 PM EST) POC Glucose 105(H) 65 - 99 mg/dL 11/24/2024 5:00 PM EST Blood specimen / Unknown 11/24/2024 4:56 PM EST 11/24/2024 5:00 PM EST Dallas Camejo MD POINT OF CARE TEST O RDERALUCILLE Performing Organization Address [facility] Co de Phone Number [facility] See Below * Glucose, Fingerstick [...] CARE TEST O RDERALUCILLE Performing Organization Address [facility] Co [facility] Number [facility] See Below * (ABNORMAL) POCT Glucose, Fingerstick (11/24/2024 7:52 AM EST) POC Glucose 103(H) 65 - 99 mg/dL 11/24/2024 8:11 AM EST Blood specimen / Unknown 11/24/2024 7:52 AM EST 11/24/2024 8:11 AM EST Dallas Camejo MD POINT OF CARE TEST O RDERALUCILLE Performing Organization Address [facility] Co [facility] See Below * (ABNORMAL) Complete Blood Count WITHOUT Differential - in AM (11/24/2024 6:56 AM EST) Pathologist [facility] White Blood Cell Count 10.0 4.0 - 11.0 Thou/uL 11/24/2024 9:12 AM [facility] Platelet Count 366 150 - 450 Thou/uL 11/24/2024 9:12 AM [facility] Hemoglobin 9.0(L) 13.0 - 17.7 g/dL 11/24/2024 9:12 AM [facility] Hematocrit 29.5(L) 39.0 - 54.0 % 11/24/2024 9:12 AM [facility] Red Blood Cell Count 3.25(L) 4.50 - 6.20 Mil/uL 11/24/2024 9:12 AM [facility] MCV 91 80 - 100 fL 11/24/2024 9:12 AM [facility] MCH 27.7 27.0 - 31.0 pg 11/24/2024 9:12 AM [facility] MCHC 30.5 30.0 - 36.0 g/dL 11/24/2024 9:12 AM [facility] RDW 18.0(H) 11.5 - 14.5 % 11/24/2024 9:12 AM [facility] MPV 10.8 7.5 - 12.5 fL 11/24/2024 9:12 AM [facility] Blood Blood specimen / Unknown 11/24/2024 6:56 AM EST 11/24/2024 8:52 AM EST Gianluca Calles MD [place] [address], [place] [address] * (ABNORMAL) Comprehensive Metabolic Panel (AM) (11/24/2024 6:56 AM EST) Glucose 99 65 - 99 mg/dL 11/24/2024 9:28 AM [facility] Comment:Fasting: <100 mg/dL, Non-Fasting: <200 mg/dL (ADA 2005) Blood Urea Nitrogen (BUN) 35(H) 8 - 21 mg/dL 11/24/2024 9:28 AM [facility] Creatinine 1.6(H) 0.5 - 1.3 mg/dL 11/24/2024 9:28 AM [facility] eGFR 48(L) >59 11/24/2024 9:28 AM [facility] Comment:CKD-EPI (2020) in mL /min/1.73 sq meters. Sodium 139 136 - 145 mmol/L 11/24/2024 9:28 AM [facility] Potassium 3.8 3.4 - 5.3 mmol/L 11/24/2024 9:28 AM [facility] Chloride 102 98 - 107 mmol/L 11/24/2024 9:28 AM [facility] CO2 24 22 - 33 mmol/L 11/24/2024 9:28 AM [facility] Calcium 8.9 8.7 - 10.5 mg/dL 11/24/2024 9:28 AM [facility] Alkaline Phosphatase 97 45 - 128 U/L 11/24/2024 9:28 AM [facility] Aspartate Aminotrans (AST) 14 10 - 55 U/L 11/24/2024 9:28 AM [facility] Alanine Aminotrans (ALT) 20 10 - 55 U/L 11/24/2024 9:28 AM [facility] Bilirubin, Total 0.2 0.2 - 1.0 mg/dL 11/24/2024 9:28 AM [facility] Protein, Total 6.7 6.3 - 8.3 g/dL 11/24/2024 9:28 AM [facility] Albumin 3.1(L) 3.4 - 4.8 g/dL 11/24/2024 9:28 AM [facility] BUN/Creatinine Ratio 22 10.0 - 25.0 Ratio 11/24/2024 9:28 AM [facility] Globulin 3.6 1.5 - 3.9 g/dL 11/24/2024 9:28 AM [facility] Albumin/Globulin Ratio 0.9(L) 1.0 - 3.0 Ratio 11/24/2024 9:28 AM [facility] Anion Gap 13 7 - 17 11/24/2024 9:28 AM [facility] Blood Blood specimen / Unknown 11/24/2024 6:56 AM EST 11/24/2024 8:52 AM EST Gianluca Calles MD LAB BLOOD ORDERABLES [address] [address], [address] [address] * (ABNORMAL) POCT Glucose, Fingerstick (11/23/2024 8:48 PM EST) POC Glucose 116(H) 65 - 99 mg/dL 11/23/2024 8:49 PM EST Blood specimen / Unknown 11/23/2024 8:48 PM EST 11/23/2024 8:49 PM EST Dallas Camejo MD POINT OF CARE TEST O RDERALUCILLE Performing Organization Address [facility] LAB See Below * POCT Glucose, Fingerstick (11/23/2024 4:35 PM EST) POC Glucose 84 65 - 99 mg/dL 11/23/2024 4:36 PM EST Blood specimen / Unknown 11/23/2024 4:35 PM EST 11/23/2024 4:36 PM EST Dallas Camejo MD POINT OF CARE TEST O RDERALUCILLE Performing Organization Address [facility] LAB See Below * (ABNORMAL) POCT Glucose, Fingerstick (11/23/2024 11:35 AM EST) POC Glucose 151(H) 65 - 99 mg/dL 11/23/2024 11:36 AM EST Blood specimen / Unknown 11/23/2024 11:35 AM EST 11/23/2024 11:36 AM EST Dallas Camejo MD POINT OF CARE TEST O RDERALUCILLE Performing Organization Address [facility] LAB See Below * Influenza A/B, RSV, SARS-CoV-2 BALJINDER Multiplex (FLUVID) (11/23/2024 10:45 AM EST) Pathologist [facility] Influenza A Virus Not Detected Not Detected 11/23/2024 12:00 PM [facility] Influenza B Virus Not Detected Not Detected 11/23/2024 12:00 PM [facility] SARS-CoV-2 Not Detected Not Detected 11/23/2024 12:00 PM [facility] Respiratory Syncytial Virus Not Detected Not Detected 11/23/2024 12:00 PM [facility] Comment Negative results do not preclude SARS-CoV-2, Influenza or RSV infection and should not be used as the sole basis for treatment or other patient management decisions. 11/23/2024 12:00 PM EST [facility] Swab, Nasopharyngeal Nasopharyngeal swab / Unknown 11/23/2024 10:45 AM EST 11/23/2024 11:08 AM EST Gianluca Calles MD MICROBIOLOGY - GENER AL ORDERABLES Performing Organization Address [facility] Co de Phone Number [address] [address], [address] [address] * (ABNORMAL) POCT Glucose, Fingerstick (11/23/2024 7:34 AM EST) POC Glucose 126(H) 65 - 99 mg/dL 11/23/2024 7:35 AM EST Blood specimen / Unknown 11/23/2024 7:34 AM EST 11/23/2024 7:35 AM EST Dallas Camejo MD POINT OF CARE TEST O RDERABLES Performing Organization Address City/[facility] Co de Phone Number HOSPITAL LAB See Below * (ABNORMAL) C-REACTIVE PROTEIN (11/23/2024 6:43 AM EST) C-Reactive Protein 4.88(H) 0 - 0.49 mg/dL 11/23/2024 11:53 AM EST [facility] 11/23/2024 6:43 AM EST 11/23/2024 6:49 AM EST Gianluca Calles MD LAB BLOOD ORDERABLES Performing Organization Address [facility] Co de Phone Number [address] [address], [address] [address] * (ABNORMAL) Erythrocyte Sedimentation Rate (ESR) (11/23/2024 6:43 AM EST) Erythrocyte Sediment Rate (ESR) 62(H) <20 MM/HR 11/23/2024 12:07 PM EST [facility] Blood specimen / Unknown 11/23/2024 6:43 AM EST 11/23/2024 6:49 AM EST Gianluca Calles MD LAB BLOOD ORDERABLES [address] [address], [address] [address] * (ABNORMAL) HEPATIC FUNCTION PANEL (11/23/2024 6:43 AM EST) Pathologist [facility] Alkaline Phosphatase 103 45 - 128 U/L 11/23/2024 11:53 AM [facility] Aspartate Aminotrans (AST) 22 10 - 55 U/L 11/23/2024 11:53 AM [facility] Alanine Aminotrans (ALT) 28 10 - 55 U/L 11/23/2024 11:53 AM [facility] Bilirubin, Total 0.2 0.2 - 1.0 mg/dL 11/23/2024 11:53 AM [facility] Protein, Total 6.6 6.3 - 8.3 g/dL 11/23/2024 11:53 AM [facility] Albumin 3.1(L) 3.4 - 4.8 g/dL 11/23/2024 11:53 AM [facility] Bilirubin, Direct 0.1 0 - 0.2 mg/dL 11/23/2024 11:53 AM [facility] Globulin 3.5 1.5 - 3.9 g/dL 11/23/2024 11:53 AM [facility] Albumin/Globulin Ratio 0.9(L) 1.0 - 3.0 Ratio 11/23/2024 11:53 AM [facility] 11/23/2024 6:43 AM EST 11/23/2024 6:49 AM EST Gianluca Calles MD LAB BLOOD ORDERABLES Performing Organization Address City/[facility]/ZIP Co de Phone Number [address] [address], [address] [address] * CREATINE KINASE (CK) (11/23/2024 6:43 AM EST) Creatine Kinase (CK) 36 24 - 204 U/L 11/23/2024 11:53 AM [facility] 11/23/2024 6:43 AM EST 11/23/2024 6:49 AM EST Gianluca Calles MD LAB BLOOD ORDERABLES Performing Organization Address City/[facility] Co de Phone Number [address] [address], [address] [address] * (ABNORMAL) Complete Blood Count WITHOUT Differential - in AM (11/23/2024 6:43 AM EST) White Blood Cell Count 10.8 4.0 - 11.0 Thou/uL 11/23/2024 7:01 AM [facility] Platelet Count 353 150 - 450 Thou/uL 11/23/2024 7:01 AM [facility] Hemoglobin 8.7(L) 13.0 - 17.7 g/dL 11/23/2024 7:01 AM [facility] Hematocrit 28.3(L) 39.0 - 54.0 % 11/23/2024 7:01 AM [facility] Red Blood Cell Count 3.14(L) 4.50 - 6.20 Mil/uL 11/23/2024 7:01 AM [facility] MCV 90 80 - 100 fL 11/23/2024 7:01 AM [facility] MCH 27.7 27.0 - 31.0 pg 11/23/2024 7:01 AM [facility] MCHC 30.7 30.0 - 36.0 g/dL 11/23/2024 7:01 AM [facility] RDW 18.0(H) 11.5 - 14.5 % 11/23/2024 7:01 AM [facility] MPV 10.4 7.5 - 12.5 fL 11/23/2024 7:01 AM [facility] Blood Blood specimen / Unknown 11/23/2024 6:43 AM EST 11/23/2024 6:49 AM EST Gianluca Calles MD LAB BLOOD ORDERABLES [address] [address], [address] [address] * Magnesium (AM) (11/23/2024 6:43 AM EST) Magnesium 2.2 1.6 - 2.7 mg/dL 11/23/2024 7:22 AM [facility] Blood Blood specimen / Unknown 11/23/2024 6:43 AM EST 11/23/2024 6:49 AM EST Ginaluca Calles MD LAB BLOOD ORDERABLES Performing Organization Address City/[facility]/[place] [address], [place] [address] * (ABNORMAL) Basic Metabolic Panel (AM) (11/23/2024 6:43 AM EST) Glucose 114(H) 65 - 99 mg/dL 11/23/2024 7:22 AM [facility] Comment:Fasting: <100 mg/dL, Non-Fasting: <200 mg/dL (ADA 2004) Blood Urea Nitrogen (BUN) 31(H) 8 - 21 mg/dL 11/23/2024 7:22 AM [facility] Creatinine 1.5(H) 0.5 - 1.3 mg/dL 11/23/2024 7:22 AM [facility] eGFR 52(L) >59 11/23/2024 7:22 AM [facility] Comment:CKD-EPI (2020) in mL /min/1.73 sq meters. Sodium 140 136 - 145 mmol/L 11/23/2024 7:22 AM [facility] Potassium 4.0 3.4 - 5.3 mmol/L 11/23/2024 7:22 AM [facility] Chloride 104 98 - 107 mmol/L 11/23/2024 7:22 AM [facility] CO2 25 22 - 33 mmol/L 11/23/2024 7:22 AM [facility] Anion Gap 11 7 - 17 11/23/2024 7:22 AM [facility] Calcium 9.0 8.7 - 10.5 mg/dL 11/23/2024 7:22 AM EST [facility] BUN/Creatinine Ratio 21 10.0 - 25.0 Ratio 11/23/2024 7:22 AM EST [facility] Blood Blood specimen / Unknown 11/23/2024 6:43 AM EST 11/23/2024 6:49 AM EST Gianluca Calles MD LAB BLOOD ORDERABLES [address] [address], [address] [address] * (ABNORMAL) POCT Glucose, Fingerstick (11/22/2024 9:02 PM EST) POC Glucose 138(H) 65 - 99 mg/dL 11/22/2024 9:02 PM EST Blood specimen / Unknown 11/22/2024 9:02 PM EST 11/22/2024 9:03 PM EST Dallas Camejo MD POINT OF CARE TEST O RDERABLES Performing Organization Address City/[facility]/ZIP Co de Phone Number [facility] See Below * (ABNORMAL) POCT [...] Session [id number] PACEART Implantable Pulse Generator Field Map Technician [employer] PACEART Implantable Pulse Generator Model [id number] Micra AV2 PACEART Implantable Pulse Generator Serial Number [id number] PACEART Implantable Pulse Generator Type Pacemaker PACEART [...] last reset 99.86 % PACEART Otf Statistic CUSTOMER LEADER Percent 100.00 % PACEART Otf Statistic VS Percent 0 % PACEART Anatomical Region Laterality Modality Other 11/22/2024 1:58 PM EST Narrative 11/28/2024 10:40 AM EST Micra AV leadless Pacemaker evaluation completed on B10E. Per patient request and verbal order from [facility]: LRL increased from 50 bpm to 60 bpm. Presenting rhythm: AM/CUSTOMER LEADER @ 62 bpm. Underlying rhythm: CHB. AM/CUSTOMER LEADER pacing 81%, with total V-pacing 100%. Battery [...] MD POINT OF CARE TEST O RDERABLES [facility] See Below * (ABNORMAL) POCT Glucose, Fingerstick (11/22/2024 7:35 AM EST) [facility] POC Glucose 194(H) 65 - 99 mg/dL 11/22/2024 7:37 AM EST Blood specimen / Unknown 11/22/2024 7:35 AM EST 11/22/2024 7:37 AM EST Dallas Camejo MD POINT OF CARE TEST O RDERABLES [facility] See Below * Magnesium (AM) (11/22/2024 7:31 AM EST) [facility] Magnesium 2.0 1.6 - 2.7 mg/dL 11/22/2024 8:17 AM EST [facility] Blood (Plasma/Serum) 11/22/2024 7:31 AM EST 11/22/2024 7:54 AM EST Gianluca Calles MD LAB BLOOD ORDERABLES Performing Organization Address [facility] [place] [address], [place] [address] * (ABNORMAL) Complete Blood Count WITHOUT Differential - in AM (11/22/2024 7:31 AM EST) [facility] White Blood Cell Count 12.1(H) 4.0 - 11.0 Thou/uL 11/22/2024 8:19 AM [facility] Platelet Count 333 150 - 450 Thou/uL 11/22/2024 8:19 AM [facility] Hemoglobin 8.1(L) 13.0 - 17.7 g/dL 11/22/2024 8:19 AM [facility] Hematocrit 26.2(L) 39.0 - 54.0 % 11/22/2024 8:19 AM [facility] Red Blood Cell Count 2.88(L) 4.50 - 6.20 Mil/uL 11/22/2024 8:19 AM [facility] MCV 91 80 - 100 fL 11/22/2024 8:19 AM [facility] MCH 28.1 27.0 - 31.0 pg 11/22/2024 8:19 AM [facility] MCHC 30.9 30.0 - 36.0 g/dL 11/22/2024 8:19 AM [facility] RDW 18.0(H) 11.5 - 14.5 % 11/22/2024 8:19 AM [facility] MPV 10.5 7.5 - 12.5 fL 11/22/2024 8:19 AM [facility] Blood Blood specimen / Unknown 11/22/2024 7:31 AM EST 11/22/2024 7:54 AM EST Gianluca Calles MD [place] [address], [place] [address] * (ABNORMAL) Basic Metabolic Panel (AM) (11/22/2024 7:31 AM EST) Glucose 178(H) 65 - 99 mg/dL 11/22/2024 8:17 AM [facility] Comment:Fasting: <100 mg/dL, Non-Fasting: <200 mg/dL (ADA 2004) Blood Urea Nitrogen (BUN) 36(H) 8 - 21 mg/dL 11/22/2024 8:17 AM [facility] Creatinine 1.6(H) 0.5 - 1.3 mg/dL 11/22/2024 8:17 AM [facility] eGFR 48(L) >59 11/22/2024 8:17 AM [facility] Comment:CKD-EPI (2020) in mL /min/1.73 sq meters. Sodium 137 136 - 145 mmol/L 11/22/2024 8:17 AM [facility] Potassium 4.2 3.4 - 5.3 mmol/L 11/22/2024 8:17 AM [facility] Chloride 101 98 - 107 mmol/L 11/22/2024 8:17 AM [facility] CO2 27 22 - 33 mmol/L 11/22/2024 8:17 AM [facility] Anion Gap 9 7 - 17 11/22/2024 8:17 AM [facility] Calcium 8.8 8.7 - 10.5 mg/dL 11/22/2024 8:17 AM [facility] BUN/Creatinine Ratio 23 10.0 - 25.0 Ratio 11/22/2024 8:17 AM [facility] Blood (Plasma/Serum) 11/22/2024 7:31 AM EST 11/22/2024 7:54 AM EST Gianluca Calles MD [place] [address], [place] [address] * (ABNORMAL) POCT Glucose, Fingerstick (11/21/2024 9:28 [...] Glucose, Fingerstick (11/21/2024 11:56 AM EST) Pathologist [facility] POC Glucose 246(H) 65 - 99 mg/dL 11/21/2024 12:03 PM EST Blood specimen / Unknown 11/21/2024 11:56 AM EST 11/21/2024 12:03 PM EST Dallas Camejo MD POINT OF CARE TEST O RDERABLES Performing Organization Address [facility] Co de Phone Number [facility] See Below * (ABNORMAL) POCT Glucose, Fingerstick (11/21/2024 7:45 AM EST) Pathologist [facility] POC Glucose 175(H) 65 - 99 mg/dL 11/21/2024 7:54 AM EST Blood specimen / Unknown 11/21/2024 7:45 AM EST 11/21/2024 7:54 AM EST Dallas Camejo MD POINT OF CARE TEST O RDERALUCILLE Performing Organization Address [facility] de Phone Number [facility] See Below * Magnesium (AM) (11/21/2024 6:58 AM EST) [facility] Magnesium 2.1 1.6 - 2.7 mg/dL 11/21/2024 8:14 AM EST [facility] Blood (Plasma/Serum) 11/21/2024 6:58 AM EST 11/21/2024 7:36 AM EST Gianluca Calles MD LAB BLOOD ORDERABLES Performing Organization Address [facility] Co de Phone Number [address] [address], [address] [address] * (ABNORMAL) Complete Blood Count WITHOUT Differential - in AM (11/21/2024 6:58 AM EST) [facility] White Blood Cell Count 14.0(H) 4.0 - 11.0 Thou/uL 11/21/2024 7:55 AM EST [facility] Platelet Count 329 150 - 450 Thou/uL 11/21/2024 7:55 AM EST [facility] Hemoglobin 8.2(L) 13.0 - 17.7 g/dL 11/21/2024 7:55 AM [facility] Hematocrit 26.7(L) 39.0 - 54.0 % 11/21/2024 7:55 AM [facility] Red Blood Cell Count 2.95(L) 4.50 - 6.20 Mil/uL 11/21/2024 7:55 AM [facility] MCV 91 80 - 100 fL 11/21/2024 7:55 AM [facility] MCH 27.8 27.0 - 31.0 pg 11/21/2024 7:55 AM [facility] MCHC 30.7 30.0 - 36.0 g/dL 11/21/2024 7:55 AM [facility] RDW 17.8(H) 11.5 - 14.5 % 11/21/2024 7:55 AM [facility] MPV 10.4 7.5 - 12.5 fL 11/21/2024 7:55 AM [facility] Blood Blood specimen / Unknown 11/21/2024 6:58 AM EST 11/21/2024 7:36 AM EST Gianluca Calles MD [place] [address], [place] [address] * (ABNORMAL) Basic Metabolic Panel (AM) (11/21/2024 6:58 AM EST) Glucose 153(H) 65 - 99 mg/dL 11/21/2024 8:14 AM [facility] Comment:Fasting: <100 mg/dL, Non-Fasting: <200 mg/dL (ADA 2005) Blood Urea Nitrogen (BUN) 38(H) 8 - 21 mg/dL 11/21/2024 8:14 AM [facility] Creatinine 1.8(H) 0.5 - 1.3 mg/dL 11/21/2024 8:14 AM [facility] eGFR 42(L) >59 11/21/2024 8:14 AM [facility] Comment:CKD-EPI (2020) in mL /min/1.73 sq meters. Sodium 136 136 - 145 mmol/L 11/21/2024 8:14 AM [facility] Potassium 3.7 3.4 - 5.3 mmol/L 11/21/2024 8:14 AM [facility] Chloride 99 98 - 107 mmol/L 11/21/2024 8:14 AM [facility] CO2 27 22 - 33 mmol/L 11/21/2024 8:14 AM [facility] Anion Gap 10 7 - 17 11/21/2024 8:14 AM [facility] Calcium 8.8 8.7 - 10.5 mg/dL 11/21/2024 8:14 AM [facility] BUN/Creatinine Ratio 21 10.0 - 25.0 Ratio 11/21/2024 8:14 AM [facility] Blood (Plasma/Serum) 11/21/2024 6:58 AM EST 11/21/2024 7:36 AM EST Gianluca Calles MD [place] [address], [place] [address] * (ABNORMAL) POCT Glucose, Fingerstick (11/20/2024 8:16 [...] CARE TEST O RDERALUCILLE Performing Organization Address [facility] Phone Number [facility] See Below * (ABNORMAL) POCT Glucose, Fingerstick (11/20/2024 12:07 PM EST) POC Glucose 167(H) 65 - 99 mg/dL 11/20/2024 12:12 PM EST Blood specimen / Unknown 11/20/2024 12:07 PM EST 11/20/2024 12:12 PM EST Dallas Camejo MD POINT OF CARE TEST O RDERABLES Performing Organization Address [facility] Phone Number [facility] See Below * (ABNORMAL) POCT Glucose, Fingerstick (11/20/2024 7:58 AM EST) POC Glucose 166(H) 65 - 99 mg/dL 11/20/2024 8:02 AM EST Blood specimen / Unknown 11/20/2024 7:58 AM EST 11/20/2024 8:02 AM EST Dallas Camejo MD POINT OF CARE TEST O RDERABLES Performing Organization Address [facility] Phone Number [facility] See Below * Magnesium (AM) (11/20/2024 6:59 AM EST) Magnesium 2.2 1.6 - 2.7 mg/dL 11/20/2024 8:04 AM EST [facility] Blood (Plasma/Serum) 11/20/2024 6:59 AM EST 11/20/2024 7:31 AM EST Gianluca Calles MD LAB BLOOD ORDERABLES Performing Organization Address [facility] Co de Phone Number [address] [address], [address] [address] * (ABNORMAL) Complete Blood Count WITHOUT Differential - in AM (11/20/2024 6:59 AM EST) White Blood Cell Count 11.9(H) 4.0 - 11.0 Thou/uL 11/20/2024 7:45 AM [facility] Platelet Count 339 150 - 450 Thou/uL 11/20/2024 7:45 AM [facility] Hemoglobin 8.3(L) 13.0 - 17.7 g/dL 11/20/2024 7:45 AM [facility] Hematocrit 27.2(L) 39.0 - 54.0 % 11/20/2024 7:45 AM [facility] Red Blood Cell Count 3.01(L) 4.50 - 6.20 Mil/uL 11/20/2024 7:45 AM [facility] MCV 90 80 - 100 fL 11/20/2024 7:45 AM [facility] MCH 27.6 27.0 - 31.0 pg 11/20/2024 7:45 AM [facility] MCHC 30.5 30.0 - 36.0 g/dL 11/20/2024 7:45 AM [facility] RDW 17.5(H) 11.5 - 14.5 % 11/20/2024 7:45 AM [facility] MPV 10.7 7.5 - 12.5 fL 11/20/2024 7:45 AM [facility] Blood Blood specimen / Unknown 11/20/2024 6:59 AM EST 11/20/2024 7:31 AM EST Gianluca Calles MD LAB BLOOD ORDERABLES [address] [address], [address] [address] * (ABNORMAL) Basic Metabolic Panel (AM) (11/20/2024 6:59 AM EST) [facility] Glucose 155(H) 65 - 99 mg/dL 11/20/2024 8:04 AM [facility] Comment:Fasting: <100 mg/dL, Non-Fasting: <200 mg/dL (ADA 2005) Blood Urea Nitrogen (BUN) 47(H) 8 - 21 mg/dL 11/20/2024 8:04 AM [facility] Creatinine 1.9(H) 0.5 - 1.3 mg/dL 11/20/2024 8:04 AM [facility] eGFR 39(L) >59 11/20/2024 8:04 AM [facility] Comment:CKD-EPI (2020) in mL /min/1.73 sq meters. Sodium 137 136 - 145 mmol/L 11/20/2024 8:04 AM [facility] Potassium 3.8 3.4 - 5.3 mmol/L 11/20/2024 8:04 AM [facility] Chloride 98 98 - 107 mmol/L 11/20/2024 8:04 AM [facility] CO2 30 22 - 33 mmol/L 11/20/2024 8:04 AM [facility] Anion Gap 9 7 - 17 11/20/2024 8:04 AM [facility] Calcium 9.0 8.7 - 10.5 mg/dL 11/20/2024 8:04 AM [facility] BUN/Creatinine Ratio 25 10.0 - 25.0 Ratio 11/20/2024 8:04 AM [facility] Blood (Plasma/Serum) 11/20/2024 6:59 AM EST 11/20/2024 7:31 AM EST Gianluca Calles MD LAB BLOOD ORDERABLES Performing Organization Address City/[facility]/[place] [address], [place] [id number] * (ABNORMAL) POCT Glucose, Fingerstick (11/19/2024 4:13 PM EST) POC Glucose 274(H) 65 - 99 mg/dL 11/19/2024 4:14 PM EST Blood specimen / Unknown 11/19/2024 4:13 PM EST 11/19/2024 4:14 PM EST Dallas Camejo MD POINT OF CARE TEST O RDERABLES [facility]OSPITAL LAB See Below * (ABNORMAL) Urinalysis with Reflex to Microscopic (11/19/2024 4:00 PM EST) Color Yellow 11/19/2024 4:30 PM [facility] Clarity Clear 11/19/2024 4:30 PM [facility] Specific [place] 1.008 1.003 - 1.030 11/19/2024 4:30 PM [facility] pH 6.0 5.0 - 8.0 11/19/2024 4:30 PM [facility] Leukocyte Esterase Large(A) Negative 11/19/2024 4:30 PM [facility] Nitrite Negative Negative 11/19/2024 4:30 PM [facility] Protein Negative Negative 11/19/2024 4:30 PM [facility] Glucose 0 0 - 99 mg/dL 11/19/2024 4:30 PM [facility] Ketones Negative Negative 11/19/2024 4:30 PM [facility] Blood Negative Negative 11/19/2024 4:30 PM [facility] Bilirubin Negative Negative 11/19/2024 4:30 PM [facility] WBC >25(H) 0 - 4 per hpf 11/19/2024 4:30 PM [facility] RBC 2 0 - 4 per hpf 11/19/2024 4:30 PM [facility] X-Specimen 16 Voided urine specimen / Unknown 11/19/2024 4:00 PM EST 11/19/2024 4:18 PM EST Anmol Reynoso MD URINE ORDERABLES Performing Organization Address City/State/[facility] Co de Phone Number [address] [address], [address] [address] * OSMOLALITY, URINE (11/19/2024 4:00 PM EST) Osmolality, Urine 201 50 - 1,200 mOsm/Kg 11/19/2024 6:20 PM [facility] Urine Urine specimen / Unknown 11/19/2024 4:00 PM EST 11/19/2024 4:19 PM EST Anmol Reynoso MD URINE ORDERABLES Performing Organization Address City/[facility] Co de Phone Number [address] [address], [address] [address] * Urea Nitrogen, Urine, Random (11/19/2024 4:00 PM EST) Urea Nitrogen, Random Urine 273 mg/dL 11/19/2024 5:43 PM EST [facility] Comment:Reference range not established for random specimen. Urine Urine specimen / Unknown 11/19/2024 4:00 PM EST 11/19/2024 4:19 PM EST Anmol Reynoso MD URINE ORDERABLES Performing Organization Address [facility] Co de Phone Number [address] [address], [address] [address] * SODIUM, URINE, RANDOM (11/19/2024 4:00 PM EST) Sodium, Urine Random 21 mmol/L 11/19/2024 5:43 PM EST [facility] Comment:Reference range not established for random specimen. Urine Urine specimen / Unknown 11/19/2024 4:00 PM EST 11/19/2024 4:19 PM EST Anmol Reynoso MD URINE ORDERABLES Performing Organization Address City/[facility]/ZIP Co de Phone Number [address] [address], [address] [address] * CREATININE, URINE, RANDOM (11/19/2024 4:00 PM EST) Creatinine, Urine, Random 31 mg/dL 11/19/2024 5:43 PM EST [facility] Comment:Reference range not established for random specimen. Urine Urine specimen / Unknown 11/19/2024 4:00 PM EST 11/19/2024 4:19 PM EST Anmol Reynoso MD URINE ORDERABLES Performing Organization Address [facility] [place] [address], [place] [address] * Chloride, Urine, Random (11/19/2024 4:00 PM EST) Chloride, Urine, Random 23 mmol/L 11/19/2024 5:43 PM EST [facility] Comment:Reference range not established for random specimen. Urine Urine specimen / Unknown 11/19/2024 4:00 PM EST 11/19/2024 4:19 PM EST Anmol Reynoso MD URINE ORDERABLES Performing Organization Address [facility] [place] [address], [place] [address] * CVC INSERT (TUNNEL) W/O PORT GREATER [...] table. A preprocedure time-out was performed per [facility] protocol. The right neck and chest [...] access, a 26 cm long dual lumen 5-Indonesian cuffed tunneled catheter was placed under fluoroscopic [...] table. A preprocedure time-out was performed per [facility] protocol. The right neck and chest [...] access, a 26 cm long dual lumen 5-Indonesian cuffed tunneled catheter was placed under fluoroscopic [...] POCT Glucose, Fingerstick (11/19/2024 11:39 AM EST) [facility] POC Glucose 205(H) 65 - 99 mg/dL 11/19/2024 11:40 AM EST Blood specimen / Unknown 11/19/2024 11:39 AM EST 11/19/2024 11:40 AM EST Dallas Camejo MD POINT OF CARE TEST O RDERALUCILLE Performing Organization Address City/[facility] Co de Phone Number HOSPITAL LAB See Below * (ABNORMAL) POCT Glucose, Fingerstick (11/19/2024 8:06 AM EST) Pathologist [facility] POC Glucose 190(H) 65 - 99 mg/dL 11/19/2024 8:08 AM EST Blood specimen / Unknown 11/19/2024 8:06 AM EST 11/19/2024 8:08 AM EST Dallas Camejo MD POINT OF CARE TEST O RDERALUCILLE Performing Organization Address [facility]/State/ZIP Co de Phone Number HOSPITAL LAB See Below * (ABNORMAL) Complete Blood Count WITHOUT Differential - Daily x2 (11/19/2024 7:54 AM EST) Pathologist [facility] White Blood Cell Count 10.1 4.0 - 11.0 Thou/uL 11/19/2024 8:48 AM EST [facility] Platelet Count 354 150 - 450 Thou/uL 11/19/2024 8:48 AM [facility] Hemoglobin 8.2(L) 13.0 - 17.7 g/dL 11/19/2024 8:48 AM [facility] Hematocrit 26.6(L) 39.0 - 54.0 % 11/19/2024 8:48 AM [facility] Red Blood Cell Count 2.99(L) 4.50 - 6.20 Mil/uL 11/19/2024 8:48 AM [facility] MCV 89 80 - 100 fL 11/19/2024 8:48 AM [facility] MCH 27.4 27.0 - 31.0 pg 11/19/2024 8:48 AM [facility] MCHC 30.8 30.0 - 36.0 g/dL 11/19/2024 8:48 AM [facility] RDW 17.2(H) 11.5 - 14.5 % 11/19/2024 8:48 AM [facility] MPV 10.8 7.5 - 12.5 fL 11/19/2024 8:48 AM [facility] Blood Blood specimen / Unknown 11/19/2024 7:54 AM EST 11/19/2024 8:33 AM EST Corbin Lamb APRN LAB BLOOD ORDERABL ES Performing Organization Address City/[facility]/[place] [address], [place] [address] * Magnesium (Daily x 2 days) (11/19/2024 7:54 AM EST) Magnesium 2.1 1.6 - 2.7 mg/dL 11/19/2024 9:00 AM [facility] Blood (Plasma/Serum) 11/19/2024 7:54 AM EST 11/19/2024 8:33 AM EST Corbin Lamb APRN LAB BLOOD ORDERABL ES Performing Organization Address City/[facility] [place] [address], [facility] [address] [place] [address] * (ABNORMAL) Basic Metabolic Panel (Daily x 2 days) (11/19/2024 7:54 AM EST) Pathologist [facility] Glucose 169(H) 65 - 99 mg/dL 11/19/2024 9:00 AM [facility] Comment:Fasting: <100 mg/dL, Non-Fasting: <200 mg/dL (ADA 2004) Blood Urea Nitrogen (BUN) 43(H) 8 - 21 mg/dL 11/19/2024 9:00 AM [facility] Creatinine 1.8(H) 0.5 - 1.3 mg/dL 11/19/2024 9:00 AM [facility] eGFR 42(L) >59 11/19/2024 9:00 AM [facility] Comment:CKD-EPI (2020) in mL /min/1.73 sq meters. Sodium 132(L) 136 - 145 mmol/L 11/19/2024 9:00 AM [facility] Potassium 3.7 3.4 - 5.3 mmol/L 11/19/2024 9:00 AM [facility] Chloride 92(L) 98 - 107 mmol/L 11/19/2024 9:00 AM [facility] CO2 30 22 - 33 mmol/L 11/19/2024 9:00 AM [facility] Anion Gap 10 7 - 17 11/19/2024 9:00 AM [facility] Calcium 9.1 8.7 - 10.5 mg/dL 11/19/2024 9:00 AM [facility] BUN/Creatinine Ratio 24 10.0 - 25.0 Ratio 11/19/2024 9:00 AM [facility] Blood (Plasma/Serum) 11/19/2024 7:54 AM EST 11/19/2024 8:33 AM EST Corbin Lamb APRN LAB BLOOD ORDERABL ES [address] [address], [address] [address] * (ABNORMAL) POCT Glucose, Fingerstick (11/18/2024 9:04 PM EST) Pathologist [facility] POC Glucose 253(H) 65 - 99 mg/dL 11/18/2024 9:11 PM EST Blood specimen / Unknown 11/18/2024 9:04 PM EST 11/18/2024 9:11 PM EST Dallas Camejo MD POINT OF CARE TEST O [place]UC[place] Performing Organization Address [facility] LAB See Below * (ABNORMAL) POCT Glucose, Fingerstick (11/18/2024 4:56 PM EST) POC Glucose 305(H) 65 - 99 mg/dL 11/18/2024 4:58 PM EST Blood specimen / Unknown 11/18/2024 4:56 PM EST 11/18/2024 4:57 PM EST Dallas Camejo MD POINT OF CARE TEST O [place] Performing Organization Address [facility] LAB See Below * (ABNORMAL) POCT Glucose, Fingerstick (11/18/2024 12:00 PM EST) POC Glucose 253(H) 65 - 99 mg/dL 11/18/2024 12:01 PM EST Blood specimen / Unknown 11/18/2024 12:00 PM EST 11/18/2024 12:01 PM EST Dallas Camejo MD POINT OF CARE TEST O RDERALUCILLE Performing Organization Address [facility] Number [facility] See Below * (ABNORMAL) POCT Glucose, Fingerstick (11/18/2024 7:53 AM EST) POC Glucose 129(H) 65 - 99 mg/dL 11/18/2024 7:58 AM EST Blood specimen / Unknown 11/18/2024 7:53 AM EST 11/18/2024 7:58 AM EST Dallas Camejo MD POINT OF CARE TEST O RDERALUCILLE Performing Organization Address [facility]/ZIP Co de Phone Number HOSPITAL LAB See Below * PM SINGLE LEAD EVAL WITH PROGRAM,[id number] (11/18/2024 7:45 AM EST) Date Time Interrogation Session ,,220,07 [phone] PACEART Implantable Pulse Generator 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 Presenting rhythm: AM-CUSTOMER LEADER @ 69 bpm. Underlying rhythm: No ventricular response greater than 40 bpm. AM-CUSTOMER LEADER @ 84.8%. Battery and device parameters evaluated and within normal limits. Normal pacemaker function. Micra pacemakers do not record events. Sri Pena RN Corbin Lamb APRN CV CARDIAC SERVICE S ORDERABLES * Creatine Kinase (CK) (11/18/2024 7:15 AM EST) Creatine Kinase (CK) 49 24 - 204 U/L 11/18/2024 8:22 AM [facility] Blood (Plasma/Serum) 11/18/2024 7:15 AM EST 11/18/2024 7:47 AM EST Corbin Lamb APRN LAB BLOOD ORDERABL ES [address] [address], [address] [address] * (ABNORMAL) Complete Blood Count WITHOUT Differential - Daily x2 (11/18/2024 7:15 AM EST) White Blood Cell Count 12.3(H) 4.0 - 11.0 Thou/uL 11/18/2024 8:00 AM [facility] Platelet Count 349 150 - 450 Thou/uL 11/18/2024 8:00 AM [facility] Hemoglobin 8.1(L) 13.0 - 17.7 g/dL 11/18/2024 8:00 AM [facility] Hematocrit 25.5(L) 39.0 - 54.0 % 11/18/2024 8:00 AM [facility] Red Blood Cell Count 2.90(L) 4.50 - 6.20 Mil/uL 11/18/2024 8:00 AM [facility] MCV 88 80 - 100 fL 11/18/2024 8:00 AM [facility] MCH 27.9 27.0 - 31.0 pg 11/18/2024 8:00 AM [facility] MCHC 31.8 30.0 - 36.0 g/dL 11/18/2024 8:00 AM [facility] RDW 17.1(H) 11.5 - 14.5 % 11/18/2024 8:00 AM [facility] MPV 10.6 7.5 - 12.5 fL 11/18/2024 8:00 AM [facility] Blood Blood specimen / Unknown 11/18/2024 7:15 AM EST 11/18/2024 7:47 AM EST Corbin Lamb APRN LAB BLOOD ORDERABL ES [facility] [address] [place] [address], [facility] [address] [place] [address] * Magnesium (Daily x 2 days) (11/18/2024 7:15 AM EST) Magnesium 2.0 1.6 - 2.7 mg/dL 11/18/2024 8:22 AM [facility] Blood (Plasma/Serum) 11/18/2024 7:15 AM EST 11/18/2024 7:47 AM EST Corbin Adonis PRINTING PRESS MACHINIST LAB BLOOD ORDERABL ES [facility] [address] [place] [address], [facility] [address] [place] [address] * (ABNORMAL) Basic Metabolic Panel (Daily x 2 days) (11/18/2024 7:15 AM EST) Glucose 114(H) 65 - 99 mg/dL 11/18/2024 8:22 AM [facility] Comment:Fasting: <100 mg/dL, Non-Fasting: <200 mg/dL (ADA 2004) Blood Urea Nitrogen (BUN) 45(H) 8 - 21 mg/dL 11/18/2024 8:22 AM [facility] Creatinine 1.8(H) 0.5 - 1.3 mg/dL 11/18/2024 8:22 AM [facility] eGFR 42(L) >59 11/18/2024 8:22 AM [facility] Comment:CKD-EPI (2020) in mL /min/1.73 sq meters. Sodium 129(L) 136 - 145 mmol/L 11/18/2024 8:22 AM [facility] Potassium 3.6 3.4 - 5.3 mmol/L 11/18/2024 8:22 AM [facility] Chloride 89(L) 98 - 107 mmol/L 11/18/2024 8:22 AM [facility] CO2 29 22 - 33 mmol/L 11/18/2024 8:22 AM [facility] Anion Gap 11 7 - 17 11/18/2024 8:22 AM [facility] Calcium 8.9 8.7 - 10.5 mg/dL 11/18/2024 8:22 AM EST [facility] BUN/Creatinine Ratio 25 10.0 - 25.0 Ratio 11/18/2024 8:22 AM EST [facility] Blood (Plasma/Serum) 11/18/2024 7:15 AM EST 11/18/2024 7:47 AM EST Corbin Lamb APRN LAB BLOOD ORDERABL ES [address] [address], [facility] [address] [place] [address] * XR Chest 1 view (11/17/2024 5:48 [...] femoral venous access was obtained. ??A 12 Indonesian sheath was placed in the right femoral vein. ?? Through this an Amplatz stiff wire was advanced under fluoroscopic visualization to the right IJ. ??Using ultrasound-guided Seldinger technique left femoral venous access was obtained. ??8 Indonesian sheath was placed in left femoral vein. [...] support. ??We then began with a 14 Indonesian laser sheath. ??Under fluoroscopic visualization we started with the right ventricular lead. ?? 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 ??We were able to progress to the innominate area. ??Here we reached the innominate region and had significant fibrosis. ??We then remove the 14 Indonesian laser sheath and moved to the right [...] then used the right femoral venous 12 Indonesian sheath and Amplatz wire which was in [...] ventricle positioning on the septum. ??ADAME and LUXEMBOURGISH position confirmed our placement.We did an initial deployment here. ??Sensing of paced R wave was 12 mV. ??Device impedance was 520 ohms. ??Threshold was initially 1.5 V that decreased to 1.2 V. ??However remained at 1.2 V at 0.24 ms. ??We therefore retrieved the device back into the deploying sheath. ??We then moved the device slightly superior. ??ADAME and LUXEMBOURGISH position to confirm septal position. ??Initial testing [...] ??Z stitch was placed around the 8 Indonesian sheath as well and the sheath was [...] CARE TEST O RDERABLES Performing Organization Address [facility] Phone Number [facility] See Below * (ABNORMAL) POCT Glucose, Fingerstick (11/17/2024 11:18 AM EST) POC Glucose 153(H) 65 - 99 mg/dL 11/17/2024 11:22 AM EST Blood specimen / Unknown 11/17/2024 11:18 AM EST 11/17/2024 11:22 AM EST Dallas Camejo MD POINT OF CARE TEST O RDERALUCILLE Performing Organization Address [facility] Number [facility] See Below * Phosphorus (AM) (11/17/2024 8:16 AM EST) Phosphorus 3.5 2.7 - 4.5 mg/dL 11/17/2024 9:01 AM EST [facility] Blood (Plasma/Serum) 11/17/2024 8:16 AM EST 11/17/2024 8:30 AM EST Maddison Villalpando MD LAB BLOOD ORDERABLES Performing Organization Address [facility] [place] [address], [place] [address] * Magnesium (AM) (11/17/2024 8:16 AM EST) Magnesium 2.0 1.6 - 2.7 mg/dL 11/17/2024 9:01 AM EST [facility] Blood (Plasma/Serum) 11/17/2024 8:16 AM EST 11/17/2024 8:30 AM EST Maddison Villalpando MD LAB BLOOD ORDERABLES Performing Organization Address [facility] [place] [address], [place] [address] [place] [address] * (ABNORMAL) POCT Glucose, Fingerstick (11/17/2024 7:20 AM EST) POC Glucose 206(H) 65 - 99 mg/dL 11/17/2024 7:31 AM EST Blood specimen / Unknown 11/17/2024 7:20 AM EST 11/17/2024 7:30 AM EST Dallas Camejo MD POINT OF CARE TEST O RDERABLES HOSPITAL LAB See Below * (ABNORMAL) Complete Blood Count WITHOUT Differential - STAT (11/17/2024 5:00 AM EST) Pathologist [facility] White Blood Cell Count 11.2(H) 4.0 - 11.0 Thou/uL 11/17/2024 5:26 AM [facility] Platelet Count 373 150 - 450 Thou/uL 11/17/2024 5:26 AM [facility] Hemoglobin 8.2(L) 13.0 - 17.7 g/dL 11/17/2024 5:26 AM [facility] Hematocrit 25.0(L) 39.0 - 54.0 % 11/17/2024 5:26 AM [facility] Red Blood Cell Count 2.94(L) 4.50 - 6.20 Mil/uL 11/17/2024 5:26 AM [facility] MCV 85 80 - 100 fL 11/17/2024 5:26 AM [facility] MCH 27.9 27.0 - 31.0 pg 11/17/2024 5:26 AM [facility] MCHC 32.8 30.0 - 36.0 g/dL 11/17/2024 5:26 AM [facility] RDW 16.5(H) 11.5 - 14.5 % 11/17/2024 5:26 AM [facility] MPV 10.4 7.5 - 12.5 fL 11/17/2024 5:26 AM [facility] Blood Blood specimen / Unknown 11/17/2024 5:00 AM EST 11/17/2024 5:09 AM EST Adithya Sheriff PA-C LAB BLOOD ORDERAB LES [facility] [address] [place] [address], [facility] [address] [place] [address] * (ABNORMAL) Comprehensive Metabolic Panel (AM) (11/17/2024 5:00 AM EST) Glucose 171(H) 65 - 99 mg/dL 11/17/2024 6:55 AM [facility] Comment:Fasting: <100 mg/dL, Non-Fasting: <200 mg/dL (ADA 2004) Blood Urea Nitrogen (BUN) 54(H) 8 - 21 mg/dL 11/17/2024 6:55 AM [facility] Creatinine 1.8(H) 0.5 - 1.3 mg/dL 11/17/2024 6:55 AM [facility] eGFR 42(L) >59 11/17/2024 6:55 AM [facility] Comment:CKD-EPI (2020) in mL /min/1.73 sq meters. Sodium 128(L) 136 - 145 mmol/L 11/17/2024 6:55 AM [facility] Potassium 3.7 3.4 - 5.3 mmol/L 11/17/2024 6:55 AM [facility] Chloride 87(L) 98 - 107 mmol/L 11/17/2024 6:55 AM [facility] CO2 30 22 - 33 mmol/L 11/17/2024 6:55 AM [facility] Calcium 9.4 8.7 - 10.5 mg/dL 11/17/2024 6:55 AM [facility] Alkaline Phosphatase 117 45 - 128 U/L 11/17/2024 6:55 AM [facility] Aspartate Aminotrans (AST) 24 10 - 55 U/L 11/17/2024 6:55 AM [facility] Alanine Aminotrans (ALT) 19 10 - 55 U/L 11/17/2024 6:55 AM [facility] Bilirubin, Total 0.2 0.2 - 1.0 mg/dL 11/17/2024 6:55 AM [facility] Protein, Total 6.6 6.3 - 8.3 g/dL 11/17/2024 6:55 AM [facility] Albumin 2.9(L) 3.4 - 4.8 g/dL 11/17/2024 6:55 AM [facility] BUN/Creatinine Ratio 30(H) 10.0 - 25.0 Ratio 11/17/2024 6:55 AM [facility] Globulin 3.7 1.5 - 3.9 g/dL 11/17/2024 6:55 AM [facility] Albumin/Globulin Ratio 0.8(L) 1.0 - 3.0 Ratio 11/17/2024 6:55 AM [facility] Anion Gap 11 7 - 17 11/17/2024 6:55 AM [facility] Blood (Plasma/Serum) 11/17/2024 5:00 AM EST 11/17/2024 5:09 AM EST Adithya Sheriff PA-C [place] [address], [place] [address] * (ABNORMAL) POCT Glucose, Fingerstick (11/16/2024 8:09 [...] CARE TEST O RDERABLES Performing Organization Address [facility] Phone Number [facility] See Below * (ABNORMAL) POCT Glucose, Fingerstick (11/16/2024 12:04 PM EST) POC Glucose 246(H) 65 - 99 mg/dL 11/16/2024 12:16 PM EST Blood specimen / Unknown 11/16/2024 12:04 PM EST 11/16/2024 12:16 PM EST Dallas Camejo MD POINT OF CARE TEST O RDERABLES Performing Organization Address [facility] Phone Number [facility] See Below * (ABNORMAL) POCT Glucose, Fingerstick (11/16/2024 7:37 AM EST) POC Glucose 211(H) 65 - 99 mg/dL 11/16/2024 7:52 AM EST Blood specimen / Unknown 11/16/2024 7:37 AM EST 11/16/2024 7:52 AM EST Dallas Camejo MD POINT OF CARE TEST O RDERABLES Performing Organization Address [facility] Phone Number [facility] See Below * Phosphorus (AM) (11/16/2024 7:23 AM EST) Pathologist [facility] Phosphorus 3.8 2.7 - 4.5 mg/dL 11/16/2024 8:34 AM EST [facility] Blood (Plasma/Serum) 11/16/2024 7:23 AM EST 11/16/2024 7:51 AM EST Maddison Villalpando MD LAB BLOOD ORDERABLES Performing Organization Address [facility] Number [address] [address], [address] [address] * Magnesium (AM) (11/16/2024 7:23 AM EST) Pathologist [facility] Magnesium 2.1 1.6 - 2.7 mg/dL 11/16/2024 8:34 AM [facility] Blood (Plasma/Serum) 11/16/2024 7:23 AM EST 11/16/2024 7:51 AM EST Maddison Villalpando MD LAB BLOOD ORDERABLES [address] [address], [address] [address] * (ABNORMAL) Basic Metabolic Panel (AM) (11/16/2024 7:23 AM EST) Glucose 190(H) 65 - 99 mg/dL 11/16/2024 8:34 AM [facility] Comment:Fasting: <100 mg/dL, Non-Fasting: <200 mg/dL (ADA 2004) Blood Urea Nitrogen (BUN) 55(H) 8 - 21 mg/dL 11/16/2024 8:34 AM [facility] Creatinine 1.9(H) 0.5 - 1.3 mg/dL 11/16/2024 8:34 AM [facility] eGFR 39(L) >59 11/16/2024 8:34 AM [facility] Comment:CKD-EPI (2020) in mL /min/1.73 sq meters. Sodium 130(L) 136 - 145 mmol/L 11/16/2024 8:34 AM [facility] Potassium 3.6 3.4 - 5.3 mmol/L 11/16/2024 8:34 AM [facility] Chloride 87(L) 98 - 107 mmol/L 11/16/2024 8:34 AM [facility] CO2 32 22 - 33 mmol/L 11/16/2024 8:34 AM [facility] Anion Gap 11 7 - 17 11/16/2024 8:34 AM [facility] Calcium 9.1 8.7 - 10.5 mg/dL 11/16/2024 8:34 AM [facility] BUN/Creatinine Ratio 29(H) 10.0 - 25.0 Ratio 11/16/2024 8:34 AM [facility] Blood (Plasma/Serum) 11/16/2024 7:23 AM EST 11/16/2024 7:51 AM EST Maddison Villalpando MD LAB BLOOD ORDERABLES Performing Organization Address City/[facility]/ZIP Co de Phone Number [address] [address], [address] [address] * (ABNORMAL) Complete Blood Count WITHOUT Differential - in AM (11/16/2024 7:23 AM EST) Pathologist [facility] White Blood Cell Count 10.7 4.0 - 11.0 Thou/uL 11/16/2024 8:10 AM [facility] Platelet Count 408 150 - 450 Thou/uL 11/16/2024 8:10 AM [facility] Hemoglobin 8.1(L) 13.0 - 17.7 g/dL 11/16/2024 8:10 AM [facility] Hematocrit 25.6(L) 39.0 - 54.0 % 11/16/2024 8:10 AM [facility] Red Blood Cell Count 2.97(L) 4.50 - 6.20 Mil/uL 11/16/2024 8:10 AM [facility] MCV 86 80 - 100 fL 11/16/2024 8:10 AM [facility] MCH 27.3 27.0 - 31.0 pg 11/16/2024 8:10 AM [facility] MCHC 31.6 30.0 - 36.0 g/dL 11/16/2024 8:10 AM [facility] RDW 16.8(H) 11.5 - 14.5 % 11/16/2024 8:10 AM [facility] MPV 10.4 7.5 - 12.5 fL 11/16/2024 8:10 AM [facility] Blood Blood specimen / Unknown 11/16/2024 7:23 AM EST 11/16/2024 7:51 AM EST Maddison Villalpando MD LAB BLOOD ORDERABLES [address] [address], [facility] [address] [place] [address] * Type and Screen (11/16/2024 7:23 AM EST) ABO/Rh A POSITIVE 11/16/2024 8:39 AM [facility] Antibody Screen NEGATIVE 11/16/2024 8:53 AM [facility] Specimen Expiration 11/19/2024 11/16/2024 8:39 AM [facility] Unit Number [id number] 11/16/2024 9:12 AM [facility] Blood Component Type LEUKOREDUCED RED CELLS 11/16/2024 9:12 AM [facility] Unit Division 00 11/16/2024 9:12 AM [facility] Unit Status REL FROM ALLOC 2:05 AM [facility] Transfusion Status OK TO TRANSFUSE 11/16/2024 9:12 AM [facility] Crossmatch Result Electronically Compatible 11/16/2024 9:12 AM [facility] Unit Number [id number] 11/16/2024 9:12 AM [facility] Blood Component Type LEUKOREDUCED RED CELLS 11/16/2024 9:12 AM [facility] Unit Division 00 11/16/2024 9:12 AM [facility] Unit Status REL FROM ALLOC 2:05 AM [facility] Transfusion Status OK TO TRANSFUSE 11/16/2024 9:12 AM [facility] Crossmatch Result Electronically Compatible 11/16/2024 9:12 AM [facility] Unit Number [id number] 11/16/2024 9:12 AM [facility] Blood Component Type LEUKOREDUCED RED CELLS 11/16/2024 9:12 AM [facility] Unit Division 00 11/16/2024 9:12 AM [facility] Unit Status REL FROM ALLOC 2:05 AM [facility] Transfusion Status OK TO TRANSFUSE 11/16/2024 9:12 AM [facility] Crossmatch Result Electronically Compatible 11/16/2024 9:12 AM [facility] Unit Number [id number] 11/16/2024 9:12 AM [facility] Blood Component Type LEUKOREDUCED RED CELLS 11/16/2024 9:12 AM EST [facility] Unit Division 00 11/16/2024 9:12 AM EST [facility] Unit Status REL FROM ALLOC 2:05 AM EST [facility] Transfusion Status OK TO TRANSFUSE 11/16/2024 9:12 AM EST [facility] Crossmatch Result Electronically Compatible 11/16/2024 9:12 AM EST [facility] Blood Blood specimen / Unknown 11/16/2024 7:23 AM EST 11/16/2024 7:57 AM EST Comment:Blood Cristina Rodriguez APRN BLOOD BANK TEST OR DERABLES [facility] See Below [address] [address] * (ABNORMAL) POCT Glucose, Fingerstick (11/15/2024 8:14 PM EST) POC Glucose 330(H) 65 - 99 mg/dL 11/15/2024 8:15 PM EST Blood specimen / Unknown 11/15/2024 8:14 PM EST 11/15/2024 8:15 PM EST Dallas Camejo MD POINT OF CARE TEST O RDERABLES [facility] See Below * (ABNORMAL) POCT [...] BLOOD BANK PRODUCT ORDERABLES Performing Organization Address City/[facility]/ZIP Co de Phone Number HOSPITAL LAB See Below * Phosphorus (AM) (11/15/2024 8:08 AM EST) Phosphorus 4.3 2.7 - 4.5 mg/dL 11/15/2024 9:21 AM EST [facility] Blood (Plasma/Serum) 11/15/2024 8:08 AM EST 11/15/2024 8:57 AM EST Maddison Villalpando MD LAB BLOOD ORDERABLES Performing Organization Address City/[facility] [place] [address], [place] [address] * Magnesium (AM) (11/15/2024 8:08 AM EST) Magnesium 2.1 1.6 - 2.7 mg/dL 11/15/2024 9:21 AM EST [facility] Blood (Plasma/Serum) 11/15/2024 8:08 AM EST 11/15/2024 8:57 AM EST Maddison Villalpando MD LAB BLOOD ORDERABLES [address] [address], [address] [address] * (ABNORMAL) Basic Metabolic Panel (AM) (11/15/2024 8:08 AM EST) Glucose 218(H) 65 - 99 mg/dL 11/15/2024 9:21 AM [facility] Comment:Fasting: <100 mg/dL, Non-Fasting: <200 mg/dL (ADA 2004) Blood Urea Nitrogen (BUN) 59(H) 8 - 21 mg/dL 11/15/2024 9:21 AM [facility] Creatinine 1.8(H) 0.5 - 1.3 mg/dL 11/15/2024 9:21 AM [facility] eGFR 42(L) >59 11/15/2024 9:21 AM [facility] Comment:CKD-EPI (2020) in mL /min/1.73 sq meters. Sodium 131(L) 136 - 145 mmol/L 11/15/2024 9:21 AM [facility] Potassium 3.9 3.4 - 5.3 mmol/L 11/15/2024 9:21 AM [facility] Chloride 85(L) 98 - 107 mmol/L 11/15/2024 9:21 AM [facility] CO2 34(H) 22 - 33 mmol/L 11/15/2024 9:21 AM [facility] Anion Gap 12 7 - 17 11/15/2024 9:21 AM [facility] Calcium 9.4 8.7 - 10.5 mg/dL 11/15/2024 9:21 AM [facility] BUN/Creatinine Ratio 33(H) 10.0 - 25.0 Ratio 11/15/2024 9:21 AM [facility] Blood (Plasma/Serum) 11/15/2024 8:08 AM EST 11/15/2024 8:57 AM EST Maddison Villalpando MD LAB BLOOD ORDERABLES [facility] [address] [place] [address], [facility] [address] [place] [address] * (ABNORMAL) Complete Blood Count WITHOUT Differential - in AM (11/15/2024 8:08 AM EST) Pathologist [facility] White Blood Cell Count 11.8(H) 4.0 - 11.0 Thou/uL 11/15/2024 9:06 AM [facility] Platelet Count 485(H) 150 - 450 Thou/uL 11/15/2024 9:06 AM [facility] Hemoglobin 8.9(L) 13.0 - 17.7 g/dL 11/15/2024 9:06 AM [facility] Hematocrit 28.9(L) 39.0 - 54.0 % 11/15/2024 9:06 AM [facility] Red Blood Cell Count 3.27(L) 4.50 - 6.20 Mil/uL 11/15/2024 9:06 AM [facility] MCV 88 80 - 100 fL 11/15/2024 9:06 AM [facility] MCH 27.2 27.0 - 31.0 pg 11/15/2024 9:06 AM [facility] MCHC 30.8 30.0 - 36.0 g/dL 11/15/2024 9:06 AM [facility] RDW 16.8(H) 11.5 - 14.5 % 11/15/2024 9:06 AM [facility] MPV 10.4 7.5 - 12.5 fL 11/15/2024 9:06 AM [facility] Blood Blood specimen / Unknown 11/15/2024 8:08 AM EST 11/15/2024 8:57 AM EST Maddison Villalpando MD LAB BLOOD ORDERABLES [address] [address], [address] [address] * (ABNORMAL) proBNP, N-terminal (11/15/2024 8:08 AM EST) Pathologist [facility] proBNP, N-terminal 429(H) <125 pg/mL 11/15/2024 9:21 AM EST [facility] Blood Plasma specimen / Unknown 11/15/2024 8:08 AM EST 11/15/2024 8:57 AM EST Valencia Lau [employer] LAB BLOOD ORDERAB LES Performing Organization Address [facility]/ZIP Co de Phone Number [address] [address], [address] [address] * (ABNORMAL) POCT Glucose, Fingerstick (11/15/2024 7:36 [...] Glucose, Fingerstick (11/14/2024 11:33 AM EST) Pathologist [facility] POC Glucose 274(H) 65 - 99 mg/dL 11/14/2024 11:49 AM EST Blood specimen / Unknown 11/14/2024 11:33 AM EST 11/14/2024 11:49 AM EST Dallas Camejo MD [facility] See Below * (ABNORMAL) Complete Blood Count WITHOUT Differential - STAT (11/14/2024 10:31 AM EST) [facility] White Blood Cell Count 10.6 4.0 - 11.0 Thou/uL 11/14/2024 11:21 AM [facility] Platelet Count 471(H) 150 - 450 Thou/uL 11/14/2024 11:21 AM [facility] Hemoglobin 8.9(L) 13.0 - 17.7 g/dL 11/14/2024 11:21 AM [facility] Hematocrit 28.9(L) 39.0 - 54.0 % 11/14/2024 11:21 AM [facility] Red Blood Cell Count 3.25(L) 4.50 - 6.20 Mil/uL 11/14/2024 11:21 AM [facility] MCV 89 80 - 100 fL 11/14/2024 11:21 AM [facility] MCH 27.4 27.0 - 31.0 pg 11/14/2024 11:21 AM [facility] MCHC 30.8 30.0 - 36.0 g/dL 11/14/2024 11:21 AM [facility] RDW 17.1(H) 11.5 - 14.5 % 11/14/2024 11:21 AM [facility] MPV 10.3 7.5 - 12.5 fL 11/14/2024 11:21 AM [facility] Blood Blood specimen / Unknown 11/14/2024 10:31 AM EST 11/14/2024 11:15 AM EST Maddison Villalpando MD LAB BLOOD ORDERABLES Performing Organization Address [facility] [facility] [place] [address], [place] [address] * (ABNORMAL) Phosphorus (Routine) (11/14/2024 10:31 AM EST) Phosphorus 6.1(H) 2.7 - 4.5 mg/dL 11/14/2024 11:39 AM EST [facility] Blood (Plasma/Serum) 11/14/2024 10:31 AM EST 11/14/2024 11:15 AM EST Maddison Villalpando MD LAB BLOOD ORDERABLES Performing Organization Address [facility] [place] [address], [place] [address] * Magnesium (Routine) (11/14/2024 10:31 AM EST) Magnesium 2.1 1.6 - 2.7 mg/dL 11/14/2024 11:39 AM [facility] Blood (Plasma/Serum) 11/14/2024 10:31 AM EST 11/14/2024 11:15 AM EST Maddison Villalpando MD LAB BLOOD ORDERABLES Performing Organization Address [facility] [place] [address], [place] [address] * (ABNORMAL) Basic Metabolic Panel (STAT) (11/14/2024 10:31 AM EST) Glucose 319(H) 65 - 99 mg/dL 11/14/2024 11:39 AM [facility] Comment:Fasting: <100 mg/dL, Non-Fasting: <200 mg/dL (ADA 2005) Blood Urea Nitrogen (BUN) 65(H) 8 - 21 mg/dL 11/14/2024 11:39 AM [facility] Creatinine 2.1(H) 0.5 - 1.3 mg/dL 11/14/2024 11:39 AM [facility] eGFR 35(L) >59 11/14/2024 11:39 AM [facility] Comment:CKD-EPI (2020) in mL /min/1.73 sq meters. Sodium 132(L) 136 - 145 mmol/L 11/14/2024 11:39 AM [facility] Potassium 4.0 3.4 - 5.3 mmol/L 11/14/2024 11:39 AM [facility] Chloride 85(L) 98 - 107 mmol/L 11/14/2024 11:39 AM [facility] CO2 34(H) 22 - 33 mmol/L 11/14/2024 11:39 AM [facility] Anion Gap 13 7 - 17 11/14/2024 11:39 AM [facility] Calcium 9.4 8.7 - 10.5 mg/dL 11/14/2024 11:39 AM [facility] BUN/Creatinine Ratio 31(H) 10.0 - 25.0 Ratio 11/14/2024 11:39 AM [facility] Blood (Plasma/Serum) 11/14/2024 10:31 AM EST 11/14/2024 11:15 AM EST Maddison Villalpando MD LAB BLOOD ORDERABLES Performing Organization Address City/[facility] [place] [address], [place] [address] * (ABNORMAL) POCT Glucose, Fingerstick (11/14/2024 7:45 AM EST) POC Glucose 224(H) 65 - 99 mg/dL 11/14/2024 7:46 AM EST Blood specimen / Unknown 11/14/2024 7:45 AM EST 11/14/2024 7:46 AM EST Dallas Camejo MD POINT OF CARE TEST O RDERABLES Performing Organization Address City/State/[facility] Phone Number [facility] See Below * (ABNORMAL) POCT Glucose, Fingerstick (11/13/2024 11:30 PM EST) POC Glucose 268(H) 65 - 99 mg/dL 11/13/2024 11:30 PM EST Blood specimen / Unknown 11/13/2024 11:30 PM EST 11/13/2024 11:31 PM EST Dallas Camejo MD POINT OF CARE TEST O RDERABLES Performing Organization Address [facility] Phone Number [facility] See Below * (ABNORMAL) POCT Glucose, Fingerstick (11/13/2024 9:19 PM EST) POC Glucose 366(H) 65 - 99 mg/dL 11/13/2024 9:20 PM EST Blood specimen / Unknown 11/13/2024 9:19 PM EST 11/13/2024 9:20 PM EST Dallas Camejo MD POINT OF CARE TEST O RDERABLES Performing Organization Address [facility] Phone Number [facility] See Below * (ABNORMAL) POCT Glucose, Fingerstick (11/13/2024 4:45 PM EST) POC Glucose 196(H) 65 - 99 mg/dL 11/13/2024 4:50 PM EST Blood specimen / Unknown 11/13/2024 4:45 PM EST 11/13/2024 4:50 PM EST Dallas Camejo MD POINT OF CARE TEST O RDERABLES Performing Organization Address [facility] Phone Number [facility] See Below * (ABNORMAL) POCT Glucose, Fingerstick (11/13/2024 11:54 AM EST) POC Glucose 232(H) 65 - 99 mg/dL 11/13/2024 11:55 AM EST Blood specimen / Unknown 11/13/2024 11:54 AM EST 11/13/2024 11:55 AM EST Dallas Camejo MD POINT OF CARE TEST O RDERALUCILLE Performing Organization Address [facility] Number [facility] See Below * (ABNORMAL) POCT Glucose, Fingerstick (11/13/2024 8:12 AM EST) POC Glucose 159(H) 65 - 99 mg/dL 11/13/2024 8:15 AM EST Blood specimen / Unknown 11/13/2024 8:12 AM EST 11/13/2024 8:15 AM EST Dallas Camejo MD POINT OF CARE TEST O RDERALCUILLE Performing Organization Address [facility] Number [facility] See Below * (ABNORMAL) proBNP, N-terminal (11/13/2024 7:30 AM EST) proBNP, N-terminal 994(H) <125 pg/mL 11/13/2024 11:05 AM EST [facility] Plasma specimen / Unknown 11/13/2024 7:30 AM EST 11/13/2024 8:09 AM EST Maddison Villalpando MD LAB BLOOD ORDERABLES Performing Organization Address [facility] [place] [address], [place] [address] * (ABNORMAL) Phosphorus (AM) (11/13/2024 7:30 AM EST) Phosphorus 4.9(H) 2.7 - 4.5 mg/dL 11/13/2024 8:45 AM EST [facility] Blood (Plasma/Serum) 11/13/2024 7:30 AM EST 11/13/2024 8:09 AM EST Maddison Villalpando MD LAB BLOOD ORDERABLES Performing Organization Address [facility] [place] [address], [place] [address] * Magnesium (AM) (11/13/2024 7:30 AM EST) Magnesium 1.7 1.6 - 2.7 mg/dL 11/13/2024 8:45 AM [facility] Blood (Plasma/Serum) 11/13/2024 7:30 AM EST 11/13/2024 8:09 AM EST Maddison Villalpando MD [place] [address], [place] [address] * (ABNORMAL) Complete Blood Count WITHOUT Differential - in AM (11/13/2024 7:30 AM EST) White Blood Cell Count 11.8(H) 4.0 - 11.0 Thou/uL 11/13/2024 8:28 AM [facility] Platelet Count 486(H) 150 - 450 Thou/uL 11/13/2024 8:28 AM [facility] Hemoglobin 9.2(L) 13.0 - 17.7 g/dL 11/13/2024 8:28 AM [facility] Hematocrit 29.8(L) 39.0 - 54.0 % 11/13/2024 8:28 AM [facility] Red Blood Cell Count 3.34(L) 4.50 - 6.20 Mil/uL 11/13/2024 8:28 AM [facility] MCV 89 80 - 100 fL 11/13/2024 8:28 AM [facility] MCH 27.5 27.0 - 31.0 pg 11/13/2024 8:28 AM [facility] MCHC 30.9 30.0 - 36.0 g/dL 11/13/2024 8:28 AM [facility] RDW 16.9(H) 11.5 - 14.5 % 11/13/2024 8:28 AM [facility] MPV 9.8 7.5 - 12.5 fL 11/13/2024 8:28 AM [facility] Blood Blood specimen / Unknown 11/13/2024 7:30 AM EST 11/13/2024 8:09 AM EST Maddison Villalpando MD LAB BLOOD ORDERABLES [address] [address], [address] [address] * (ABNORMAL) Basic Metabolic Panel (AM) (11/13/2024 7:30 AM EST) Glucose 154(H) 65 - 99 mg/dL 11/13/2024 8:45 AM [facility] Comment:Fasting: <100 mg/dL, Non-Fasting: <200 mg/dL (ADA 2004) Blood Urea Nitrogen (BUN) 44(H) 8 - 21 mg/dL 11/13/2024 8:45 AM [facility] Creatinine 1.7(H) 0.5 - 1.3 mg/dL 11/13/2024 8:45 AM [facility] eGFR 45(L) >59 11/13/2024 8:45 AM [facility] Comment:CKD-EPI (2020) in mL /min/1.73 sq meters. Sodium 140 136 - 145 mmol/L 11/13/2024 8:45 AM [facility] Potassium 3.6 3.4 - 5.3 mmol/L 11/13/2024 8:45 AM [facility] Chloride 91(L) 98 - 107 mmol/L 11/13/2024 8:45 AM [facility] CO2 35(H) 22 - 33 mmol/L 11/13/2024 8:45 AM [facility] Anion Gap 14 7 - 17 11/13/2024 8:45 AM [facility] Calcium 9.7 8.7 - 10.5 mg/dL 11/13/2024 8:45 AM [facility] BUN/Creatinine Ratio 26(H) 10.0 - 25.0 Ratio 11/13/2024 8:45 AM [facility] Blood (Plasma/Serum) 11/13/2024 7:30 AM EST 11/13/2024 8:09 AM EST Maddison Villalpando MD LAB BLOOD ORDERABLES Performing Organization Address City/[facility]/ZIP Co de Phone Number [address] [address], [address] [address] * (ABNORMAL) POCT Glucose, Fingerstick (11/13/2024 3:59 AM EST) POC Glucose 156(H) 65 - 99 mg/dL 11/13/2024 4:03 AM EST Blood specimen / Unknown 11/13/2024 3:59 AM EST 11/13/2024 4:03 AM EST Dallas Camejo MD POINT OF CARE TEST O RDERABLES Performing Organization Address [facility]/ZIP Co de Phone Number [facility] See Below * (ABNORMAL) POCT Glucose, Fingerstick (11/13/2024 12:27 AM EST) POC Glucose 139(H) 65 - 99 mg/dL 11/13/2024 12:31 AM EST Blood specimen / Unknown 11/13/2024 12:27 AM EST 11/13/2024 12:31 AM EST Dallas Camejo MD POINT OF CARE TEST O RDERABLES [facility] See Below * (ABNORMAL) POCT Glucose, Fingerstick (11/12/2024 8:32 PM EST) POC Glucose 248(H) 65 - 99 mg/dL 11/12/2024 8:33 PM EST Blood specimen / Unknown 11/12/2024 8:32 PM EST 11/12/2024 8:33 PM EST Dallas Camejo MD POINT OF CARE TEST O RDERABLES [facility] See Below * (ABNORMAL) POCT [...] * PM DUAL LEAD EVAL WITH PROGRAMMING, [id number] (11/12/2024 1:15 PM EST) Date Time Interrogation Session [id number] 4,157 PACEART Implantable Pulse Generator Field Map Technician [employer] PACEART Implantable Pulse Generator Model [id number] ESCOBAR PACEART Implantable Pulse Generator Serial Number [id number] PACEART Implantable Pulse Generator Type Pacemaker PACEART [...] reset 99.97 % PACEART Otf Statistic AP CUSTOMER LEADER Percent 76.74 % PACEART Otf Statistic CUSTOMER LEADER Percent 23.23 % PACEART Otf Statistic AP VS Percent 0.01 % PACEART Otf Statistic VS Percent 0.01 % PACEART AT/AF [place] Percent 0 % PACEART Episode Statistic Recent [...] CARE TEST O RDERABLES Performing Organization Address City/[facility]/ZIP Co de Phone Number HOSPITAL LAB See Below * Phosphorus (11/12/2024 5:00 AM EST) Phosphorus 4.5 2.7 - 4.5 mg/dL 11/12/2024 6:01 AM EST [facility] Blood (Plasma/Serum) 11/12/2024 5:00 AM EST 11/12/2024 5:22 AM EST Luis Degroot MD LAB BLOOD ORDERABLES Performing Organization Address [facility] [place] [address], [place] [address] * Magnesium (11/12/2024 5:00 AM EST) Magnesium 1.8 1.6 - 2.7 mg/dL 11/12/2024 6:01 AM [facility] Blood (Plasma/Serum) 11/12/2024 5:00 AM EST 11/12/2024 5:22 AM EST Luis Degroot MD LAB BLOOD ORDERABLES Performing Organization Address [facility] [place] [address], [place] [address] * (ABNORMAL) Complete Blood Count, WITHOUT Differential (routine) (11/12/2024 5:00 AM EST) White Blood Cell Count 11.1(H) 4.0 - 11.0 Thou/uL 11/12/2024 5:47 AM [facility] Platelet Count 456(H) 150 - 450 Thou/uL 11/12/2024 5:47 AM [facility] Hemoglobin 8.1(L) 13.0 - 17.7 g/dL 11/12/2024 5:47 AM [facility] Hematocrit 26.3(L) 39.0 - 54.0 % 11/12/2024 5:47 AM [facility] Red Blood Cell Count 2.94(L) 4.50 - 6.20 Mil/uL 11/12/2024 5:47 AM [facility] MCV 90 80 - 100 fL 11/12/2024 5:47 AM [facility] MCH 27.6 27.0 - 31.0 pg 11/12/2024 5:47 AM [facility] MCHC 30.8 30.0 - 36.0 g/dL 11/12/2024 5:47 AM [facility] RDW 16.9(H) 11.5 - 14.5 % 11/12/2024 5:47 AM [facility] MPV 9.8 7.5 - 12.5 fL 11/12/2024 5:47 AM [facility] Blood Blood specimen / Unknown 11/12/2024 5:00 AM EST 11/12/2024 5:22 AM EST Luis Degroot MD [place] [address], [place] [address] * (ABNORMAL) Basic Metabolic Panel (11/12/2024 5:00 AM EST) Glucose 126(H) 65 - 99 mg/dL 11/12/2024 6:01 AM [facility] Comment:Fasting: <100 mg/dL, Non-Fasting: <200 mg/dL (ADA 2004) Blood Urea Nitrogen (BUN) 44(H) 8 - 21 mg/dL 11/12/2024 6:01 AM [facility] Creatinine 1.6(H) 0.5 - 1.3 mg/dL 11/12/2024 6:01 AM [facility] eGFR 48(L) >59 11/12/2024 6:01 AM [facility] Comment:CKD-EPI (2020) in mL /min/1.73 sq meters. Sodium 138 136 - 145 mmol/L 11/12/2024 6:01 AM [facility] Potassium 3.7 3.4 - 5.3 mmol/L 11/12/2024 6:01 AM [facility] Chloride 96(L) 98 - 107 mmol/L 11/12/2024 6:01 AM [facility] CO2 30 22 - 33 mmol/L 11/12/2024 6:01 AM [facility] Anion Gap 12 7 - 17 11/12/2024 6:01 AM [facility] Calcium 9.1 8.7 - 10.5 mg/dL 11/12/2024 6:01 AM [facility] BUN/Creatinine Ratio 28(H) 10.0 - 25.0 Ratio 11/12/2024 6:01 AM [facility] Blood (Plasma/Serum) 11/12/2024 5:00 AM EST 11/12/2024 5:22 AM EST Luis Degroot MD [place] [address], [place] [address] * (ABNORMAL) POCT Glucose, Fingerstick (11/12/2024 4:51 [...] CARE TEST O RDERALUCILLE Performing Organization Address [facility] See Below * (ABNORMAL) POCT [...] CARE TEST O RDERABLES Performing Organization Address [facility] LAB See Below * (ABNORMAL) POCT Glucose, Fingerstick (11/11/2024 5:06 PM EST) POC Glucose 149(H) 65 - 99 mg/dL 11/11/2024 5:37 PM EST Blood specimen / Unknown 11/11/2024 5:06 PM EST 11/11/2024 5:37 PM EST Dallas Camejo MD POINT OF CARE TEST O RDERALUCILLE Performing Organization Address [facility] LAB See Below * PM DUAL LEAD EVAL WITH PROGRAMMING, [id number] (11/11/2024 4:33 PM EST) Date Time Interrogation Session [id number] [phone] PACEART Implantable Pulse Generator Field Map Technician [employer] PACEART Implantable Pulse Generator Model [id number] ESCOBAR PACEART Implantable Pulse Generator Serial Number [id number] PACEART Implantable Pulse Generator Type Pacemaker PACEART [...] reset 89.06 % PACEART Otf Statistic AP CUSTOMER LEADER Percent 62.37 % PACEART Otf Statistic CUSTOMER LEADER Percent 26.83 % PACEART Otf Statistic AP VS Percent 8.97 % PACEART Otf Statistic VS Percent 1.83 % PACEART AT/AF [place] Percent 0 % PACEART Episode Statistic Recent [...] ordered for function. Presenting rhythm: AP / CUSTOMER LEADER @ 60 bpm. Underlying rhythm: SB @ [...] inserted atraumatically into the esophagus by the translator interpreter. With the patient in a supine position [...] 2.7 - 4.5 mg/dL 11/11/2024 3:00 PM [facility] Blood (Plasma/Serum) 11/11/2024 2:00 PM EST 11/11/2024 2:19 PM EST Nani Hollis PA-C [place] [address], [place] [address] * Magnesium (11/11/2024 2:00 PM EST) Magnesium 1.8 1.6 - 2.7 mg/dL 11/11/2024 3:00 PM [facility] Blood (Plasma/Serum) 11/11/2024 2:00 PM EST 11/11/2024 2:19 PM EST Nani Hollis PA-C LAB BLOOD ORDERABLES Performing Organization Address City/[facility] [place] [address], [place] [address] * (ABNORMAL) Basic Metabolic Panel (11/11/2024 2:00 PM EST) Glucose 124(H) 65 - 99 mg/dL 11/11/2024 3:00 PM [facility] Comment:Fasting: <100 mg/dL, Non-Fasting: <200 mg/dL (ADA 2004) Blood Urea Nitrogen (BUN) 49(H) 8 - 21 mg/dL 11/11/2024 3:00 PM [facility] Creatinine 1.7(H) 0.5 - 1.3 mg/dL 11/11/2024 3:00 PM [facility] eGFR 45(L) >59 11/11/2024 3:00 PM [facility] Comment:CKD-EPI (2020) in mL /min/1.73 sq meters. Sodium 139 136 - 145 mmol/L 11/11/2024 3:00 PM [facility] Potassium 3.4 3.4 - 5.3 mmol/L 11/11/2024 3:00 PM [facility] Chloride 97(L) 98 - 107 mmol/L 11/11/2024 3:00 PM [facility] CO2 30 22 - 33 mmol/L 11/11/2024 3:00 PM [facility] Anion Gap 12 7 - 17 11/11/2024 3:00 PM [facility] Calcium 9.0 8.7 - 10.5 mg/dL 11/11/2024 3:00 PM [facility] BUN/Creatinine Ratio 29(H) 10.0 - 25.0 Ratio 11/11/2024 3:00 PM [facility] Blood (Plasma/Serum) 11/11/2024 2:00 PM EST 11/11/2024 2:19 PM EST Nani Hollis PA-[place] [address], [place] [address] * (ABNORMAL) POCT Glucose, Fingerstick (11/11/2024 11:53 [...] CARE TEST O RDERABLES Performing Organization Address City/[facility]/ZIP Co de Phone Number [facility] See Below * (ABNORMAL) POCT Glucose, Fingerstick (11/11/2024 2:35 AM EST) Pathologist [facility] POC Glucose 174(H) 65 - 99 mg/dL 11/11/2024 3:47 AM EST Blood specimen / Unknown 11/11/2024 2:35 AM EST 11/11/2024 3:46 AM EST Dallas Camejo MD POINT OF CARE TEST O RDERALUCILLE Performing Organization Address [facility] de Phone Number [facility] See Below * (ABNORMAL) proBNP, N-terminal (11/11/2024 2:00 AM EST) [facility] proBNP, N-terminal 2,964(H) <125 pg/mL 11/11/2024 3:18 AM EST [facility] Blood Plasma specimen / Unknown 11/11/2024 2:00 AM EST 11/11/2024 2:53 AM EST Nani Hollis PA-C LAB BLOOD ORDERABLES Performing Organization Address [facility] [place] [address], [place] [address] * (ABNORMAL) Complete Blood Count, WITHOUT Differential (routine) (11/11/2024 2:00 AM EST) [facility] White Blood Cell Count 13.2(H) 4.0 - 11.0 Thou/uL 11/11/2024 2:57 AM EST [facility] Platelet Count 460(H) 150 - 450 Thou/uL 11/11/2024 2:57 AM [facility] Hemoglobin 8.2(L) 13.0 - 17.7 g/dL 11/11/2024 2:57 AM [facility] Hematocrit 26.1(L) 39.0 - 54.0 % 11/11/2024 2:57 AM [facility] Red Blood Cell Count 2.91(L) 4.50 - 6.20 Mil/uL 11/11/2024 2:57 AM [facility] MCV 90 80 - 100 fL 11/11/2024 2:57 AM [facility] MCH 28.2 27.0 - 31.0 pg 11/11/2024 2:57 AM [facility] MCHC 31.4 30.0 - 36.0 g/dL 11/11/2024 2:57 AM [facility] RDW 17.0(H) 11.5 - 14.5 % 11/11/2024 2:57 AM [facility] MPV 9.8 7.5 - 12.5 fL 11/11/2024 2:57 AM [facility] Blood Blood specimen / Unknown 11/11/2024 2:00 AM EST 11/11/2024 2:53 AM EST Nani Hollis PA-C [place] [address], [place] [address] * (ABNORMAL) Phosphorus (11/11/2024 2:00 AM EST) Phosphorus 4.7(H) 2.7 - 4.5 mg/dL 11/11/2024 3:18 AM [facility] Blood (Plasma/Serum) 11/11/2024 2:00 AM EST 11/11/2024 2:53 AM EST Nani PATTON-C [place] [address], [place] [address] * Magnesium (11/11/2024 2:00 AM EST) Magnesium 2.0 1.6 - 2.7 mg/dL 11/11/2024 3:18 AM [facility] Blood (Plasma/Serum) 11/11/2024 2:00 AM EST 11/11/2024 2:53 AM EST Nani Hollis PA-C LAB BLOOD ORDERABLES [address] [address], [address] [address] * (ABNORMAL) Basic Metabolic Panel (11/11/2024 2:00 AM EST) Glucose 151(H) 65 - 99 mg/dL 11/11/2024 3:18 AM [facility] Comment:Fasting: <100 mg/dL, Non-Fasting: <200 mg/dL (ADA 2004) Blood Urea Nitrogen (BUN) 56(H) 8 - 21 mg/dL 11/11/2024 3:18 AM [facility] Creatinine 2.0(H) 0.5 - 1.3 mg/dL 11/11/2024 3:18 AM [facility] eGFR 37(L) >59 11/11/2024 3:18 AM [facility] Comment:CKD-EPI (2020) in mL /min/1.73 sq meters. Sodium 137 136 - 145 mmol/L 11/11/2024 3:18 AM [facility] Potassium 3.8 3.4 - 5.3 mmol/L 11/11/2024 3:18 AM [facility] Chloride 99 98 - 107 mmol/L 11/11/2024 3:18 AM [facility] CO2 27 22 - 33 mmol/L 11/11/2024 3:18 AM [facility] Anion Gap 11 7 - 17 11/11/2024 3:18 AM [facility] Calcium 8.7 8.7 - 10.5 mg/dL 11/11/2024 3:18 AM [facility] BUN/Creatinine Ratio 28(H) 10.0 - 25.0 Ratio 11/11/2024 3:18 AM [facility] Blood (Plasma/Serum) 11/11/2024 2:00 AM EST 11/11/2024 2:53 AM EST Nani Hollis PA-C LAB BLOOD ORDERABLES [facility] [address] [place] [address], [address] [address] * (ABNORMAL) Hepatic Function Panel (Routine) (11/11/2024 2:00 AM EST) Alkaline Phosphatase 207(H) 45 - 128 U/L 11/11/2024 3:18 AM [facility] Aspartate Aminotrans (AST) 24 10 - 55 U/L 11/11/2024 3:18 AM [facility] Alanine Aminotrans (ALT) 14 10 - 55 U/L 11/11/2024 3:18 AM [facility] Bilirubin, Total 0.2 0.2 - 1.0 mg/dL 11/11/2024 3:18 AM [facility] Protein, Total 6.4 6.3 - 8.3 g/dL 11/11/2024 3:18 AM [facility] Albumin 2.6(L) 3.4 - 4.8 g/dL 11/11/2024 3:18 AM [facility] Bilirubin, Direct 0.1 0 - 0.2 mg/dL 11/11/2024 3:18 AM [facility] Globulin 3.8 1.5 - 3.9 g/dL 11/11/2024 3:18 AM [facility] Albumin/Globulin Ratio 0.7(L) 1.0 - 3.0 Ratio 11/11/2024 3:18 AM [facility] Blood (Plasma/Serum) 11/11/2024 2:00 AM EST 11/11/2024 2:53 AM EST Nani Hollis PA-C LAB BLOOD ORDERABLES [facility] [address] [place] [address], [address] [address] * Creatine Kinase (CK) (11/11/2024 2:00 AM EST) Creatine Kinase (CK) 37 24 - 204 U/L 11/11/2024 3:18 AM EST [facility] Blood (Plasma/Serum) 11/11/2024 2:00 AM EST 11/11/2024 2:53 AM EST Nani Hollis PA-C LAB BLOOD ORDERABLES Performing Organization Address [facility]/ZIP Co de Phone Number [address] [address], [address] [address] * (ABNORMAL) POCT Glucose, Fingerstick (11/10/2024 7:55 [...] (ABNORMAL) Phosphorus (11/10/2024 12:03 PM EST) Pathologist [facility] Phosphorus 5.2(H) 2.7 - 4.5 mg/dL 11/10/2024 1:06 PM EST [facility] Blood (Plasma/Serum) 11/10/2024 12:03 PM EST 11/10/2024 12:27 PM EST Nani Hollis PA-C LAB BLOOD ORDERABLES Performing Organization Address [facility] [place] [address], [place] [address] * Magnesium (11/10/2024 12:03 PM EST) Pathologist [facility] Magnesium 2.0 1.6 - 2.7 mg/dL 11/10/2024 1:06 PM EST [facility] Blood (Plasma/Serum) 11/10/2024 12:03 PM EST 11/10/2024 12:27 PM EST Nani Hollis PA-C LAB BLOOD ORDERABLES Performing Organization Address [facility] [place] [address], [place] [address] * (ABNORMAL) Basic Metabolic Panel (11/10/2024 12:03 PM EST) Pathologist [facility] Glucose 135(H) 65 - 99 mg/dL 11/10/2024 1:06 PM [facility] Comment:Fasting: <100 mg/dL, Non-Fasting: <200 mg/dL (ADA 2004) Blood Urea Nitrogen (BUN) 57(H) 8 - 21 mg/dL 11/10/2024 1:06 PM [facility] Creatinine 1.9(H) 0.5 - 1.3 mg/dL 11/10/2024 1:06 PM [facility] eGFR 39(L) >59 11/10/2024 1:06 PM [facility] Comment:CKD-EPI (2020) in mL /min/1.73 sq meters. Sodium 137 136 - 145 mmol/L 11/10/2024 1:06 PM [facility] Potassium 3.8 3.4 - 5.3 mmol/L 11/10/2024 1:06 PM [facility] Chloride 101 98 - 107 mmol/L 11/10/2024 1:06 PM [facility] CO2 25 22 - 33 mmol/L 11/10/2024 1:06 PM [facility] Anion Gap 11 7 - 17 11/10/2024 1:06 PM [facility] Calcium 8.5(L) 8.7 - 10.5 mg/dL 11/10/2024 1:06 PM [facility] BUN/Creatinine Ratio 30(H) 10.0 - 25.0 Ratio 11/10/2024 1:06 PM [facility] Blood (Plasma/Serum) 11/10/2024 12:03 PM EST 11/10/2024 12:27 PM EST Nani Hollis PA-C LAB BLOOD ORDERABLES [address] [address], [address] [address] * (ABNORMAL) POCT Glucose, Fingerstick (11/10/2024 11:36 AM EST) POC Glucose 143(H) 65 - 99 mg/dL 11/10/2024 11:36 AM EST Blood specimen / Unknown 11/10/2024 11:36 AM EST 11/10/2024 11:37 AM EST Dallas Camejo MD POINT OF CARE TEST O RDERABLES Performing Organization Address City/[facility]/ZIP Co de Phone Number [facility] See Below * (ABNORMAL) POCT Glucose, Fingerstick (11/10/2024 7:42 AM EST) POC Glucose 134(H) 65 - 99 mg/dL 11/10/2024 7:43 AM EST Blood specimen / Unknown 11/10/2024 7:42 AM EST 11/10/2024 7:43 AM EST Dallas Camejo MD POINT OF CARE TEST O RDERABLES Performing Organization Address [facility] Co in Phone Number [facility] See Below * (ABNORMAL) POCT Glucose, Fingerstick (11/10/2024 2:02 AM EST) POC Glucose 126(H) 65 - 99 mg/dL 11/10/2024 2:03 AM EST Blood specimen / Unknown 11/10/2024 2:02 AM EST 11/10/2024 2:03 AM EST Dallas Camejo MD POINT OF CARE TEST O RDERABLES Performing Organization Address [facility] Co de Phone Number [facility] See Below * (ABNORMAL) Phosphorus (11/10/2024 12:04 AM EST) Phosphorus 5.6(H) 2.7 - 4.5 mg/dL 11/10/2024 1:09 AM EST [facility] Blood (Plasma/Serum) 11/10/2024 12:04 AM EST 11/10/2024 12:33 AM EST Claire Garibay PA-C LAB BLOOD ORDERABLES Performing Organization Address [facility] Co de Phone Number [address] [address], [address] [address] * Magnesium (11/10/2024 12:04 AM EST) Magnesium 2.1 1.6 - 2.7 mg/dL 11/10/2024 1:09 AM [facility] Blood (Plasma/Serum) 11/10/2024 12:04 AM EST 11/10/2024 12:33 AM EST Claire Garibay PA-C LAB BLOOD ORDERABLES [address] [address], [address] [address] * (ABNORMAL) Basic Metabolic Panel (11/10/2024 12:04 AM EST) Glucose 122(H) 65 - 99 mg/dL 11/10/2024 1:09 AM [facility] Comment:Fasting: <100 mg/dL, Non-Fasting: <200 mg/dL (ADA 2005) Blood Urea Nitrogen (BUN) 56(H) 8 - 21 mg/dL 11/10/2024 1:09 AM [facility] Creatinine 2.0(H) 0.5 - 1.3 mg/dL 11/10/2024 1:09 AM [facility] eGFR 37(L) >59 11/10/2024 1:09 AM [facility] Comment:CKD-EPI (2020) in mL /min/1.73 sq meters. Sodium 135(L) 136 - 145 mmol/L 11/10/2024 1:09 AM [facility] Potassium 3.8 3.4 - 5.3 mmol/L 11/10/2024 1:09 AM [facility] Chloride 100 98 - 107 mmol/L 11/10/2024 1:09 AM [facility] CO2 24 22 - 33 mmol/L 11/10/2024 1:09 AM [facility] Anion Gap 11 7 - 17 11/10/2024 1:09 AM [facility] Calcium 8.2(L) 8.7 - 10.5 mg/dL 11/10/2024 1:09 AM [facility] BUN/Creatinine Ratio 28(H) 10.0 - 25.0 Ratio 11/10/2024 1:09 AM [facility] Blood (Plasma/Serum) 11/10/2024 12:04 AM EST 11/10/2024 12:33 AM EST Claire Garibay PA-[place] [address], [place] [address] * (ABNORMAL) COMPLETE BLOOD COUNT, WITHOUT DIFFERENTIAL (11/10/2024 12:04 AM EST) White Blood Cell Count 13.5(H) 4.0 - 11.0 Thou/uL 11/10/2024 12:47 AM [facility] Platelet Count 445 150 - 450 Thou/uL 11/10/2024 12:47 AM [facility] Hemoglobin 7.6(L) 13.0 - 17.7 g/dL 11/10/2024 12:47 AM [facility] Hematocrit 25.2(L) 39.0 - 54.0 % 11/10/2024 12:47 AM [facility] Red Blood Cell Count 2.75(L) 4.50 - 6.20 Mil/uL 11/10/2024 12:47 AM [facility] MCV 92 80 - 100 fL 11/10/2024 12:47 AM [facility] MCH 27.6 27.0 - 31.0 pg 11/10/2024 12:47 AM [facility] MCHC 30.2 30.0 - 36.0 g/dL 11/10/2024 12:47 AM [facility] RDW 17.2(H) 11.5 - 14.5 % 11/10/2024 12:47 AM [facility] MPV 9.7 7.5 - 12.5 fL 11/10/2024 12:47 AM [facility] Blood Blood specimen / Unknown 11/10/2024 12:04 AM EST 11/10/2024 12:33 AM EST Claire Garibay PA-C LAB BLOOD ORDERABLES Performing Organization Address City/[facility]/ZIP Co de Phone Number [address] [address], [address] [address] * (ABNORMAL) POCT Glucose, Fingerstick (11/09/2024 8:03 PM EST) POC Glucose 152(H) 65 - 99 mg/dL 11/09/2024 8:04 PM EST Blood specimen / Unknown 11/09/2024 8:03 PM EST 11/09/2024 8:04 PM EST Dallas Camejo MD POINT OF CARE TEST O RDERALUCILLE Performing Organization Address [facility] Co de Phone Number [facility] See Below * (ABNORMAL) POCT Glucose, Fingerstick (11/09/2024 3:53 PM EST) POC Glucose 222(H) 65 - 99 mg/dL 11/09/2024 8:04 PM EST Blood specimen / Unknown 11/09/2024 3:53 PM EST 11/09/2024 8:04 PM EST Dallas Camejo MD POINT OF CARE TEST O RDERALUCILLE Performing Organization Address [facility] Co de Phone Number [facility] See Below * (ABNORMAL) POCT Glucose, Fingerstick (11/09/2024 11:47 AM EST) POC Glucose 146(H) 65 - 99 mg/dL 11/09/2024 11:53 AM EST Blood specimen / Unknown 11/09/2024 11:47 AM EST 11/09/2024 11:53 AM EST Dallas Camjeo MD POINT OF CARE TEST O RDERALUCILLE Performing Organization Address [facility]/ZIP Co de Phone Number [facility] See Below * (ABNORMAL) proBNP, N-terminal (11/09/2024 10:04 AM EST) proBNP, N-terminal 4,654(H) <125 pg/mL 11/09/2024 12:58 PM EST [facility] Plasma specimen / Unknown 11/09/2024 10:04 AM EST 11/09/2024 10:25 AM EST Claire Garibay PA-C LAB BLOOD ORDERABLES Performing Organization Address [facility] Co de Phone Number [facility] [address] [place] [address], [facility] [address] [place] [address] * (ABNORMAL) Procalcitonin (11/09/2024 10:04 AM EST) Procalcitonin 0.40(H) <0.09 ng/mL 11/09/2024 11:01 AM EST [facility] Comment: (NOTE) ?Procalcitonin (PCT) Guided Antibiotic [...] PA-C LAB BLOOD ORDERABLES Performing Organization Address [facility]/[place] [address], [place] [address] * (ABNORMAL) POCT Glucose, Fingerstick (11/09/2024 7:29 AM EST) POC Glucose 153(H) 65 - 99 mg/dL 11/09/2024 7:33 AM EST Blood specimen / Unknown 11/09/2024 7:29 AM EST 11/09/2024 7:33 AM EST Dallas Camejo MD POINT OF CARE TEST O RDERABLES Performing Organization Address City/[facility]/ZIP Co de Phone Number HOSPITAL LAB See Below * (ABNORMAL) Phosphorus (11/09/2024 1:50 AM EST) Phosphorus 5.2(H) 2.7 - 4.5 mg/dL 11/09/2024 2:56 AM [facility] Blood (Plasma/Serum) 11/09/2024 1:50 AM EST 11/09/2024 2:31 AM EST Shay Martin MD LAB BLOOD ORDERAB LES Performing Organization Address City/[facility] [place] [address], [place] [address] * Magnesium (11/09/2024 1:50 AM EST) Magnesium 2.3 1.6 - 2.7 mg/dL 11/09/2024 2:56 AM [facility] Blood (Plasma/Serum) 11/09/2024 1:50 AM EST 11/09/2024 2:31 AM EST Shay Martin MD LAB BLOOD ORDERAB LES Performing Organization Address [facility] [place] [address], [place] [address] * (ABNORMAL) COMPLETE BLOOD COUNT, WITHOUT DIFFERENTIAL (11/09/2024 1:50 AM EST) Pathologist [facility] White Blood Cell Count 11.9(H) 4.0 - 11.0 Thou/uL 11/09/2024 2:36 AM [facility] Platelet Count 405 150 - 450 Thou/uL 11/09/2024 2:36 AM [facility] Hemoglobin 7.7(L) 13.0 - 17.7 g/dL 11/09/2024 2:36 AM [facility] Hematocrit 24.9(L) 39.0 - 54.0 % 11/09/2024 2:36 AM [facility] Red Blood Cell Count 2.72(L) 4.50 - 6.20 Mil/uL 11/09/2024 2:36 AM [facility] MCV 92 80 - 100 fL 11/09/2024 2:36 AM [facility] MCH 28.3 27.0 - 31.0 pg 11/09/2024 2:36 AM [facility] MCHC 30.9 30.0 - 36.0 g/dL 11/09/2024 2:36 AM [facility] RDW 17.1(H) 11.5 - 14.5 % 11/09/2024 2:36 AM [facility] MPV 9.6 7.5 - 12.5 fL 11/09/2024 2:36 AM [facility] Blood Blood specimen / Unknown 11/09/2024 1:50 AM EST 11/09/2024 2:31 AM EST Shay Martin MD [place] [address], [place] [address] * (ABNORMAL) Basic Metabolic Panel (11/09/2024 1:50 AM EST) Glucose 117(H) 65 - 99 mg/dL 11/09/2024 2:56 AM [facility] Comment:Fasting: <100 mg/dL, Non-Fasting: <200 mg/dL (ADA 2004) Blood Urea Nitrogen (BUN) 46(H) 8 - 21 mg/dL 11/09/2024 2:56 AM [facility] Creatinine 1.8(H) 0.5 - 1.3 mg/dL 11/09/2024 2:56 AM [facility] eGFR 42(L) >59 11/09/2024 2:56 AM [facility] Comment:CKD-EPI (2020) in mL /min/1.73 sq meters. Sodium 139 136 - 145 mmol/L 11/09/2024 2:56 AM [facility] Potassium 3.6 3.4 - 5.3 mmol/L 11/09/2024 2:56 AM [facility] Chloride 101 98 - 107 mmol/L 11/09/2024 2:56 AM [facility] CO2 25 22 - 33 mmol/L 11/09/2024 2:56 AM [facility] Anion Gap 13 7 - 17 11/09/2024 2:56 AM [facility] Calcium 8.2(L) 8.7 - 10.5 mg/dL 11/09/2024 2:56 AM EST [facility] BUN/Creatinine Ratio 26(H) 10.0 - 25.0 Ratio 11/09/2024 2:56 AM EST [facility] Blood (Plasma/Serum) 11/09/2024 1:50 AM EST 11/09/2024 2:31 AM EST Shay Martin MD [place] [address], [place] [address] * (ABNORMAL) POCT Glucose, Fingerstick (11/09/2024 1:41 AM EST) POC Glucose 124(H) 65 - 99 mg/dL 11/09/2024 1:42 AM EST Blood specimen / Unknown 11/09/2024 1:41 AM EST 11/09/2024 1:42 AM EST Dallas Camejo MD POINT OF CARE TEST O RDERABLES Performing Organization Address City/[facility]/ZIP Co de Phone Number [facility] See Below * (ABNORMAL) POCT [...] to verify the correct patient, procedure, equipment, learning support specialist and site/side marked as required. [...] Blood Gas, Venous (11/08/2024 5:46 PM EST) [facility] Venous Blood PH 7.35 7.33 - 7.43 11/08/2024 6:00 PM [facility] Venous pCO2 49 35 - 50 mmHG 11/08/2024 6:00 PM [facility] Venous pO2 45 0 - 60 mmHG 11/08/2024 6:00 PM [facility] Venous Total CO2 28 23 - 29 mmol/L 11/08/2024 6:00 PM [facility] Respiratory Info NASAL 6 L/MIN 11/08/2024 5:29 PM EST Base Excess 0.9 mmol/L 11/08/2024 6:00 PM [facility] Comment:Reference Range: Neg ative 2 to Positive 3 Blood Blood specimen / Unknown 11/08/2024 5:46 PM EST 11/08/2024 5:55 PM EST Eunice Garrison APRN LAB BLOOD ORDERA BLES Performing Organization Address City/[facility]/[place] [address], [place] [address] * (ABNORMAL) Phosphorus (Routine) (11/08/2024 5:46 PM EST) [facility] Phosphorus 4.9(H) 2.7 - 4.5 mg/dL 11/08/2024 7:23 PM [facility] Blood (Plasma/Serum) 11/08/2024 5:46 PM EST 11/08/2024 6:51 PM EST Eunice Garrison [place] [address], [place] [address] * Magnesium (Routine) (11/08/2024 5:46 PM EST) [facility] Magnesium 1.9 1.6 - 2.7 mg/dL 11/08/2024 7:23 PM [facility] Blood (Plasma/Serum) 11/08/2024 5:46 PM EST 11/08/2024 6:51 PM EST Eunice Garrison PRINTING PRESS MACHINIST [place] [address], [place] [address] * (ABNORMAL) Basic Metabolic Panel (Routine) (11/08/2024 5:46 PM EST) Glucose 134(H) 65 - 99 mg/dL 11/08/2024 7:23 PM [facility] Comment:Fasting: <100 mg/dL, Non-Fasting: <200 mg/dL (ADA 2004) Blood Urea Nitrogen (BUN) 45(H) 8 - 21 mg/dL 11/08/2024 7:23 PM [facility] Creatinine 1.7(H) 0.5 - 1.3 mg/dL 11/08/2024 7:23 PM [facility] eGFR 45(L) >59 11/08/2024 7:23 PM [facility] Comment:CKD-EPI (2020) in mL /min/1.73 sq meters. Sodium 141 136 - 145 mmol/L 11/08/2024 7:23 PM [facility] Potassium 3.3(L) 3.4 - 5.3 mmol/L 11/08/2024 7:23 PM [facility] Chloride 102 98 - 107 mmol/L 11/08/2024 7:23 PM [facility] CO2 26 22 - 33 mmol/L 11/08/2024 7:23 PM [facility] Anion Gap 13 7 - 17 11/08/2024 7:23 PM [facility] Calcium 8.6(L) 8.7 - 10.5 mg/dL 11/08/2024 7:23 PM [facility] BUN/Creatinine Ratio 26(H) 10.0 - 25.0 Ratio 11/08/2024 7:23 PM [facility] Blood (Plasma/Serum) 11/08/2024 5:46 PM EST 11/08/2024 6:51 PM EST Eunice Garrison PRINTING PRESS MACHINIST LAB BLOOD ORDERA BLES [address] [address], [address] [address] * XR Chest 1 view-Portable (STAT) (11/08/2024 [...] prior study. Interpreted by: ??Bashir Barrientos MD Associate Application Developer I personally reviewed the images and the [...] prior study. Interpreted by: Bashir Barrientos MD Associate Application Developer I personally reviewed the images and the [...] Troponin T (Once) (11/08/2024 12:05 AM EST) [facility] High Sensitivity Troponin T 26(H) <23 ng/L 11/08/2024 12:39 AM EST [facility] Delta (Change) NO CHANGE <3 11/08/2024 12:39 AM EST [facility] Blood (Plasma/Serum) 11/08/2024 12:05 AM EST 11/08/2024 12:16 AM EST Kayla Orona [place] [address], [address] [address] * Creatine Kinase (CK) (11/08/2024 12:05 AM EST) [facility] Creatine Kinase (CK) 91 24 - 204 U/L 11/08/2024 12:39 AM EST [facility] Blood (Plasma/Serum) 11/08/2024 12:05 AM EST 11/08/2024 12:16 AM EST [facility] [place] [address], [place] [address] * (ABNORMAL) proBNP, N-terminal (11/08/2024 12:05 AM EST) proBNP, N-terminal 4,241(H) <125 pg/mL 11/08/2024 12:39 AM [facility] Blood Plasma specimen / Unknown 11/08/2024 12:05 AM EST 11/08/2024 12:16 AM EST [facility] [place] [address], [place] [address] * (ABNORMAL) HEPATIC FUNCTION PANEL (11/08/2024 12:05 AM EST) Alkaline Phosphatase 226(H) 45 - 128 U/L 11/08/2024 12:39 AM [facility] Aspartate Aminotrans (AST) 24 10 - 55 U/L 11/08/2024 12:39 AM [facility] Alanine Aminotrans (ALT) 24 10 - 55 U/L 11/08/2024 12:39 AM [facility] Bilirubin, Total <0.2(L) 0.2 - 1.0 mg/dL 11/08/2024 12:39 AM [facility] Protein, Total 5.5(L) 6.3 - 8.3 g/dL 11/08/2024 12:39 AM [facility] Albumin 2.3(L) 3.4 - 4.8 g/dL 11/08/2024 12:39 AM [facility] Bilirubin, Direct 0.1 0 - 0.2 mg/dL 11/08/2024 12:39 AM [facility] Globulin 3.2 1.5 - 3.9 g/dL 11/08/2024 12:39 AM [facility] Albumin/Globulin Ratio 0.7(L) 1.0 - 3.0 Ratio 11/08/2024 12:39 AM [facility] Blood (Plasma/Serum) 11/08/2024 12:05 AM EST 11/08/2024 12:16 AM EST Kayla Orona APRN LAB BLOOD ORDERABLES [address] [address], [address] [address] * (ABNORMAL) COMPLETE BLOOD COUNT, WITHOUT DIFFERENTIAL (11/08/2024 12:05 AM EST) White Blood Cell Count 13.1(H) 4.0 - 11.0 Thou/uL 11/08/2024 12:22 AM [facility] Platelet Count 378 150 - 450 Thou/uL 11/08/2024 12:22 AM [facility] Hemoglobin 7.9(L) 13.0 - 17.7 g/dL 11/08/2024 12:22 AM [facility] Hematocrit 25.6(L) 39.0 - 54.0 % 11/08/2024 12:22 AM [facility] Red Blood Cell Count 2.83(L) 4.50 - 6.20 Mil/uL 11/08/2024 12:22 AM [facility] MCV 91 80 - 100 fL 11/08/2024 12:22 AM [facility] MCH 27.9 27.0 - 31.0 pg 11/08/2024 12:22 AM [facility] MCHC 30.9 30.0 - 36.0 g/dL 11/08/2024 12:22 AM [facility] RDW 16.9(H) 11.5 - 14.5 % 11/08/2024 12:22 AM [facility] MPV 9.3 7.5 - 12.5 fL 11/08/2024 12:22 AM [facility] Blood Blood specimen / Unknown 11/08/2024 12:05 AM EST 11/08/2024 12:16 AM EST Kayla Orona PRINTING PRESS MACHINIST LAB BLOOD ORDERABLES Performing Organization Address City/[facility]/[place] [address], [place] [address] * (ABNORMAL) Phosphorus (11/08/2024 12:05 AM EST) Phosphorus 5.2(H) 2.7 - 4.5 mg/dL 11/08/2024 12:39 AM [facility] Blood (Plasma/Serum) 11/08/2024 12:05 AM EST 11/08/2024 12:16 AM EST [facility] Performing Organization Address [facility] [place] [address], [place] [address] * Magnesium (11/08/2024 12:05 AM EST) Magnesium 2.0 1.6 - 2.7 mg/dL 11/08/2024 12:39 AM [facility] Blood (Plasma/Serum) 11/08/2024 12:05 AM EST 11/08/2024 12:16 AM EST [facility] Performing Organization Address City/[facility] [place] [address], [place] [address] * (ABNORMAL) Basic Metabolic Panel (11/08/2024 12:05 AM EST) Glucose 231(H) 65 - 99 mg/dL 11/08/2024 12:39 AM [facility] Comment:Fasting: <100 mg/dL, Non-Fasting: <200 mg/dL (ADA 2005) Blood Urea Nitrogen (BUN) 48(H) 8 - 21 mg/dL 11/08/2024 12:39 AM [facility] Creatinine 1.6(H) 0.5 - 1.3 mg/dL 11/08/2024 12:39 AM [facility] eGFR 48(L) >59 11/08/2024 12:39 AM [facility] Comment:CKD-EPI (2020) in mL /min/1.73 sq meters. Sodium 133(L) 136 - 145 mmol/L 11/08/2024 12:39 AM [facility] Potassium 3.8 3.4 - 5.3 mmol/L 11/08/2024 12:39 AM [facility] Chloride 98 98 - 107 mmol/L 11/08/2024 12:39 AM [facility] CO2 21(L) 22 - 33 mmol/L 11/08/2024 12:39 AM [facility] Anion Gap 14 7 - 17 11/08/2024 12:39 AM [facility] Calcium 7.9(L) 8.7 - 10.5 mg/dL 11/08/2024 12:39 AM [facility] BUN/Creatinine Ratio 30(H) 10.0 - 25.0 Ratio 11/08/2024 12:39 AM [facility] Blood (Plasma/Serum) 11/08/2024 12:05 AM EST 11/08/2024 12:16 AM EST Kayla Orona APRN [place] [address], [place] [address] * (ABNORMAL) POCT Glucose, Fingerstick (11/07/2024 7:47 PM EST) [facility] POC Glucose 261(H) 65 - 99 mg/dL 11/07/2024 7:53 PM EST Blood specimen / Unknown 11/07/2024 7:47 PM EST 11/07/2024 7:53 PM EST Dallas Camejo MD POINT OF CARE TEST O RDERABLES HOSPITAL LAB See Below * Respiratory PCR Panel (11/07/2024 6:30 PM EST) Pathologist [facility] Adenovirus Not Detected Not Detected 11/08/2024 12:23 AM [facility] Coronavirus 229E Not Detected Not Detected 11/08/2024 12:23 AM [facility] Coronavirus HKU1 Not Detected Not Detected 11/08/2024 12:23 AM [facility] Coronavirus NL63 Not Detected Not Detected 11/08/2024 12:23 AM [facility] Coronavirus OC43 Not Detected Not Detected 11/08/2024 12:23 AM [facility] Human Metapneumovirus Not Detected Not Detected 11/08/2024 12:23 AM [facility] Rhinovirus/Enterov irus Not Detected Not Detected 11/08/2024 12:23 AM [facility] Influenza A Not Detected Not Detected 11/08/2024 12:23 AM [facility] Influenza B Not Detected Not Detected 11/08/2024 12:23 AM [facility] Parainfluenza 1 (PIV1) Not Detected Not Detected 11/08/2024 12:23 AM [facility] Parainfluenza 2 (PIV2) Not Detected Not Detected 11/08/2024 12:23 AM [facility] Parainfluenza 3 (PIV3) Not Detected Not Detected 11/08/2024 12:23 AM [facility] Parainfluenza 4 (PIV4) Not Detected Not Detected 11/08/2024 12:23 AM [facility] Respiratory Syncytial Virus Not Detected Not Detected 11/08/2024 12:23 AM [facility] Bordetella pertussis Not Detected Not Detected 11/08/2024 12:23 AM [facility] Chlamydophila pneumoniae Not Detected Not Detected 11/08/2024 12:23 AM [facility] Mycoplasma pneumoniae Not Detected Not Detected 11/08/2024 12:23 AM [facility] Bordetella parapertussis Not Detected Not Detected 11/08/2024 12:23 AM [facility] SARS CoV 2 Not Detected Not Detected 11/08/2024 12:23 AM [facility] X-Specimen 24 Nasopharyngeal swab / Unknown 11/07/2024 6:30 PM EST 11/07/2024 8:00 PM EST Kayla Orona APRN MICROBIOLOGY - GENER AL ORDERABLES [facility] [address] * (ABNORMAL) High Sensitivity Troponin T (Once) (11/07/2024 4:12 PM EST) High Sensitivity Troponin T 29(H) <23 ng/L 11/07/2024 5:28 PM EST [facility] Delta (Change) 3(H) <3 11/07/2024 5:28 PM EST [facility] Comment:Increased Blood (Plasma/Serum) 11/07/2024 4:12 PM EST 11/07/2024 5:01 PM EST Kayla Orona [facility] LAB BLOOD ORDERABLES Performing Organization Address [facility]/[place] [address], [place] [address] * (ABNORMAL) Phosphorus (11/07/2024 4:12 PM EST) Phosphorus 4.7(H) 2.7 - 4.5 mg/dL 11/07/2024 5:28 PM EST [facility] Blood (Plasma/Serum) 11/07/2024 4:12 PM EST 11/07/2024 5:01 PM EST Kayla Orona [employer] LAB BLOOD ORDERABLES Performing Organization Address City/[facility]/[place] [address], [place] [address] * Magnesium (11/07/2024 4:12 PM EST) Magnesium 2.2 1.6 - 2.7 mg/dL 11/07/2024 5:28 PM [facility] Blood (Plasma/Serum) 11/07/2024 4:12 PM EST 11/07/2024 5:01 PM EST Kayla Orona [place] [address], [place] [address] * (ABNORMAL) Basic Metabolic Panel (11/07/2024 4:12 PM EST) Glucose 183(H) 65 - 99 mg/dL 11/07/2024 5:28 PM [facility] Comment:Fasting: <100 mg/dL, Non-Fasting: <200 mg/dL (ADA 2004) Blood Urea Nitrogen (BUN) 47(H) 8 - 21 mg/dL 11/07/2024 5:28 PM [facility] Creatinine 1.6(H) 0.5 - 1.3 mg/dL 11/07/2024 5:28 PM [facility] eGFR 48(L) >59 11/07/2024 5:28 PM [facility] Comment:CKD-EPI (2020) in mL /min/1.73 sq meters. Sodium 131(L) 136 - 145 mmol/L 11/07/2024 5:28 PM [facility] Potassium 3.7 3.4 - 5.3 mmol/L 11/07/2024 5:28 PM [facility] Chloride 98 98 - 107 mmol/L 11/07/2024 5:28 PM [facility] CO2 21(L) 22 - 33 mmol/L 11/07/2024 5:28 PM [facility] Anion Gap 12 7 - 17 11/07/2024 5:28 PM [facility] Calcium 8.1(L) 8.7 - 10.5 mg/dL 11/07/2024 5:28 PM [facility] BUN/Creatinine Ratio 29(H) 10.0 - 25.0 Ratio 11/07/2024 5:28 PM [facility] Blood (Plasma/Serum) 11/07/2024 4:12 PM EST 11/07/2024 5:01 PM EST Kayla Orona APRN LAB BLOOD ORDERABLES [address] [address], [address] [address] * (ABNORMAL) POCT Glucose, Fingerstick (11/07/2024 3:53 PM EST) POC Glucose 179(H) 65 - 99 mg/dL 11/07/2024 3:58 PM EST Blood specimen / Unknown 11/07/2024 3:53 PM EST 11/07/2024 3:58 PM EST Dallas Camejo MD POINT OF CARE TEST O RDERABLES [facility]OSPITAL LAB See Below * ECG 12 lead (11/07/2024 2:58 PM EST) Systolic BP 116 mmHg EKG [facility] Diastolic BP 57 mmHg EKG [facility] Ventricular rate 62 BPM EKG [facility] Atrial rate 55 BPM EKG [facility] QRS duration 168 ms EKG [facility] Q-T interval 506 ms EKG [facility] QTC calculation (Bazett) 513 ms EKG [facility] R axis 104 degrees EKG [facility] T axis -39 degrees EKG [facility] 11/07/2024 2:58 PM EST Narrative EKG [facility] - 11/07/2024 6:25 PM EST Ventricular-paced [...] Arce Ahmed (242) on 11/07/2024 6:25:53 PM Dlalas Camejo MD ECG ORDERABLES Performing Organization Address City/[facility]/ZIP Co de Phone Number EKG [facility] * BLOOD CULTURE Peripheral (11/07/2024 1:02 PM EST) Culture Sterile after 5 days 11/12/2024 7:50 AM [facility] Microbiology Peripheral blood specimen / Unknown 11/07/2024 1:02 PM EST 11/07/2024 1:23 PM EST Chris Taylor MD LAB AMB MICRO ORDERA BLES Performing Organization Address [facility]/ZIP Co de Phone Number [facility] [address] [place] [address], * BLOOD CULTURE Peripheral (11/07/2024 12:57 PM EST) Culture Sterile after 5 days 11/12/2024 7:50 AM [facility] Microbiology Peripheral blood specimen / Unknown 11/07/2024 12:57 PM EST 11/07/2024 1:49 PM EST Chris Taylor MD LAB AMB MICRO ORDERA BLES Performing Organization Address [facility] Co de Phone Number [facility] [address] [place] [address], * (ABNORMAL) Blood Gas, Arterial (STAT) (11/07/2024 12:36 PM EST) pH, Arterial 7.38 7.35 - 7.45 11/07/2024 1:02 PM [facility] pCO2, Arterial 36 32 - 45 mmHG 11/07/2024 1:02 PM [facility] pO2, Arterial 119(H) 75 - 95 mmHG 11/07/2024 1:02 PM [facility] CO2, Total 22 22 - 28 mmol/L 11/07/2024 1:02 PM [facility] Respiratory Info OTHER 11/07/19 25 12:36 PM EST Base Deficiency 3.5 mmol/L 1:02 PM [facility] Comment:Reference Range: Neg ative 2 to Positive 3 Blood Blood specimen / Unknown 11/07/2024 12:36 PM EST 11/07/2024 12:50 PM EST Kayla Orona APRN LAB BLOOD ORDERABLES [address] [address], [address] [address] * (ABNORMAL) POCT Glucose, Fingerstick (11/07/2024 12:29 [...] to prior. Interpreted by: ??Roberto Tolbert MD Associate Application Developer I personally reviewed the images and the [...] to prior. Interpreted by: Roberto Tolbert MD Associate Application Developer I personally reviewed the images and the resident's preliminary report and AGREE with the report as it is now presented ([id number]). Juaquin Kern MD IMG DIAGNOSTIC SOCOR[place] GING ORDERABLES * (ABNORMAL) High Sensitivity Troponin T (11/07/2024 8:13 AM EST) High Sensitivity Troponin T 26(H) <23 ng/L 11/07/2024 12:53 PM EST [facility] Delta (Change) NO PREVIOUS RESULT <3 11/07/2024 12:53 PM EST [facility] Plasma/Serum 11/07/2024 8:13 AM EST 11/07/2024 8:49 AM EST Juaquin Kern MD LAB BLOOD ORDERABL ES Performing Organization Address [facility] [place] [address], [place] [address] * (ABNORMAL) proBNP, N-terminal (11/07/2024 8:13 AM EST) proBNP, N-terminal 3,427(H) <125 pg/mL 11/07/2024 10:25 AM EST [facility] Plasma specimen / Unknown 11/07/2024 8:13 AM EST 11/07/2024 8:49 AM EST Juaquin Kern MD LAB BLOOD ORDERABL ES [facility] [address] [place] [address], [facility] [address] [place] [address] * (ABNORMAL) Complete Blood Count, WITHOUT Differential (routine) (11/07/2024 8:13 AM EST) White Blood Cell Count 12.4(H) 4.0 - 11.0 Thou/uL 11/07/2024 9:05 AM [facility] Platelet Count 430 150 - 450 Thou/uL 11/07/2024 9:05 AM [facility] Hemoglobin 8.9(L) 13.0 - 17.7 g/dL 11/07/2024 9:05 AM [facility] Hematocrit 28.9(L) 39.0 - 54.0 % 11/07/2024 9:05 AM [facility] Red Blood Cell Count 3.16(L) 4.50 - 6.20 Mil/uL 11/07/2024 9:05 AM [facility] MCV 92 80 - 100 fL 11/07/2024 9:05 AM [facility] MCH 28.2 27.0 - 31.0 pg 11/07/2024 9:05 AM [facility] MCHC 30.8 30.0 - 36.0 g/dL 11/07/2024 9:05 AM [facility] RDW 16.7(H) 11.5 - 14.5 % 11/07/2024 9:05 AM [facility] MPV 9.6 7.5 - 12.5 fL 11/07/2024 9:05 AM [facility] nRBC 0.2(H) 0.0 - 0.1 /100 WBC 11/07/2024 9:05 AM [facility] nRBC, Absolute 0.03(H) 0.00 - 0.02 Thou/uL 11/07/2024 9:05 AM [facility] Blood Blood specimen / Unknown 11/07/2024 8:13 AM EST 11/07/2024 8:49 AM EST Juaquin Kern MD [place] [address], [place] [address] * MAGNESIUM (11/07/2024 8:13 AM EST) Magnesium 2.3 1.6 - 2.7 mg/dL 11/07/2024 9:26 AM [facility] Blood (Plasma/Serum) 11/07/2024 8:13 AM EST 11/07/2024 8:49 AM EST Juaquin Kern MD [place] [address], [place] [address] * PHOSPHORUS (11/07/2024 8:13 AM EST) Phosphorus 4.3 2.7 - 4.5 mg/dL 11/07/2024 9:26 AM [facility] Blood (Plasma/Serum) 11/07/2024 8:13 AM EST 11/07/2024 8:49 AM EST Juaquin Kern MD [place] [address], [place] [address] * (ABNORMAL) Comprehensive Metabolic Panel (11/07/2024 8:13 AM EST) Glucose 188(H) 65 - 99 mg/dL 11/07/2024 9:26 AM [facility] Comment:Fasting: <100 mg/dL, Non-Fasting: <200 mg/dL (ADA 2005) Blood Urea Nitrogen (BUN) 47(H) 8 - 21 mg/dL 11/07/2024 9:26 AM [facility] Creatinine 1.5(H) 0.5 - 1.3 mg/dL 11/07/2024 9:26 AM [facility] eGFR 52(L) >59 11/07/2024 9:26 AM [facility] Comment:CKD-EPI (2020) in mL /min/1.73 sq meters. Sodium 129(L) 136 - 145 mmol/L 11/07/2024 9:26 AM [facility] Potassium 3.9 3.4 - 5.3 mmol/L 11/07/2024 9:26 [facility] Chloride 94(L) 98 - 107 mmol/L 11/07/2024 9:26 [facility] CO2 22 22 - 33 mmol/L 11/07/2024 9:26 AM [facility] Calcium 8.3(L) 8.7 - 10.5 mg/dL 11/07/2024 9:26 [facility] Alkaline Phosphatase 220(H) 45 - 128 U/L 11/07/2024 9:26 [facility] Aspartate Aminotrans (AST) 28 10 - 55 U/L 11/07/2024 9:26 [facility] Alanine Aminotrans (ALT) 29 10 - 55 U/L 11/07/2024 9:26 [facility] Bilirubin, Total 0.2 0.2 - 1.0 mg/dL 11/07/2024 9:26 [facility] Protein, Total 6.1(L) 6.3 - 8.3 g/dL 11/07/2024 9:26 [facility] Albumin 2.6(L) 3.4 - 4.8 g/dL 11/07/2024 9:26 [facility] BUN/Creatinine Ratio 31(H) 10.0 - 25.0 Ratio 11/07/2024 9:26 [facility] Globulin 3.5 1.5 - 3.9 g/dL 11/07/2024 9:26 [facility] Albumin/Globulin Ratio 0.7(L) 1.0 - 3.0 Ratio 11/07/2024 9:26 [facility] Anion Gap 13 7 - 17 11/07/2024 9:26 AM [facility] Blood (Plasma/Serum) 11/07/2024 8:13 AM EST 11/07/2024 8:49 AM EST Juaquin Kern MD LAB BLOOD ORDERABL ES Performing Organization Address [facility] Co de Phone Number [address] [address], [address] [address] * (ABNORMAL) POCT Glucose, Fingerstick (11/07/2024 7:33 AM EST) POC Glucose 191(H) 65 - 99 mg/dL 11/07/2024 7:36 AM EST Blood specimen / Unknown 11/07/2024 7:33 AM EST 11/07/2024 7:36 AM EST Dallas Camejo MD POINT OF CARE TEST O RDERALUCILLE Performing Organization Address [facility] Phone Number [facility] LAB See Below * (ABNORMAL) POCT Glucose, Fingerstick (11/07/2024 2:07 AM EST) POC Glucose 231(H) 65 - 99 mg/dL 11/07/2024 2:08 AM EST Blood specimen / Unknown 11/07/2024 2:07 AM EST 11/07/2024 2:08 AM EST Dallas Camejo MD POINT OF CARE TEST O RDERABLES Performing Organization Address [facility] Co in Phone Number [facility] LAB See Below * (ABNORMAL) POCT Glucose, Fingerstick (11/06/2024 9:23 PM EST) POC Glucose 277(H) 65 - 99 mg/dL 11/06/2024 9:24 PM EST Blood specimen / Unknown 11/06/2024 9:23 PM EST 11/06/2024 9:24 PM EST Dallas Camejo MD POINT OF CARE TEST O RDERALUCILLE Performing Organization Address [facility] Co de Phone Number [facility] LAB See Below * (ABNORMAL) POCT Glucose, Fingerstick (11/06/2024 5:24 PM EST) POC Glucose 193(H) 65 - 99 mg/dL 11/06/2024 5:29 PM EST Blood specimen / Unknown 11/06/2024 5:24 PM EST 11/06/2024 5:29 PM EST Dallas Camejo MD POINT OF CARE TEST O RDERABLES Performing Organization Address [facility] LAB See Below * (ABNORMAL) POCT Glucose, Fingerstick (11/06/2024 2:45 PM EST) POC Glucose 217(H) 65 - 99 mg/dL 11/06/2024 2:46 PM EST Blood specimen / Unknown 11/06/2024 2:45 PM EST 11/06/2024 2:46 PM EST Dallas Camejo MD POINT OF CARE TEST O RDERALUCILLE Performing Organization Address [facility] LAB See Below * (ABNORMAL) POCT Glucose, Fingerstick (11/06/2024 12:10 PM EST) POC Glucose 229(H) 65 - 99 mg/dL 11/06/2024 2:24 PM EST Blood specimen / Unknown 11/06/2024 12:10 PM EST 11/06/2024 2:24 PM EST Dallas Camejo MD POINT OF CARE TEST O RDERABLES Performing Organization Address [facility] Number [facility] LAB See Below * (ABNORMAL) POCT Glucose, Fingerstick (11/06/2024 7:51 AM EST) POC Glucose 210(H) 65 - 99 mg/dL 11/06/2024 8:43 AM EST Blood specimen / Unknown 11/06/2024 7:51 AM EST 11/06/2024 8:43 AM EST Dallas Camejo MD POINT OF CARE TEST O RDERABLES Performing Organization Address [facility] LAB See Below * (ABNORMAL) Complete Blood Count WITH Differential - Early AM (11/06/2024 4:58 AM [facility]) White Blood Cell Count 11.9(H) 4.0 - 11.0 Thou/uL 11/06/2024 5:26 AM [facility] Platelet Count 346 150 - 450 Thou/uL 11/06/2024 5:26 AM [facility] Hemoglobin 8.7(L) 13.0 - 17.7 g/dL 11/06/2024 5:26 AM [facility] Hematocrit 27.9(L) 39.0 - 54.0 % 11/06/2024 5:26 AM [facility] Red Blood Cell Count 3.05(L) 4.50 - 6.20 Mil/uL 11/06/2024 5:26 [facility] MCV 92 80 - 100 fL 11/06/2024 5:26 [facility] MCH 28.5 27.0 - 31.0 pg 11/06/2024 5:26 AM [facility] MCHC 31.2 30.0 - 36.0 g/dL 11/06/2024 5:26 AM [facility] RDW 16.4(H) 11.5 - 14.5 % 11/06/2024 5:26 AM [facility] MPV 9.5 7.5 - 12.5 fL 11/06/2024 5:26 AM [facility] Neutrophils Auto 88.8 % 11/06/19 5:26 AM [facility] Immature Granulocytes 1.1 % 11/06/2024 5:26 AM [facility] Lymphocytes Auto 3.4 % 11/06/19 5:26 AM [facility] Monocytes Auto 6.6 % 11/06/2024 5:26 AM [facility] Eosinophils Auto 0.0 % 11/06/19 5:26 AM [facility] Basophils Auto 0.1 % 11/06/2024 5:26 AM [facility] Abs Neutrophils Auto 10.57(H) 2.00 - 7.50 Thou/uL 11/06/2024 5:26 AM [facility] Abs Immature Granulocytes 0.13(H) 0.00 - 0.10 Thou/uL 11/06/2024 5:26 AM [facility] Abs Lymphocytes Auto 0.41(L) 1.50 - 4.50 Thou/uL 11/06/2024 5:26 AM [facility] Abs Monocytes Auto 0.79 0.20 - 1.50 Thou/uL 11/06/2024 5:26 AM [facility] Abs Eosinophils Auto 0.00 0.00 - 0.70 Thou/uL 11/06/2024 5:26 AM [facility] Abs Basophils Auto 0.01 0.00 - 0.20 Thou/uL 11/06/2024 5:26 AM [facility] Blood Blood specimen / Unknown 11/06/2024 4:58 AM EST 11/06/2024 5:15 AM EST Renea PATTON [place] [address], [place] [address] * (ABNORMAL) PHOSPHORUS (11/06/2024 4:58 AM EST) Phosphorus 5.1(H) 2.7 - 4.5 mg/dL 11/06/2024 5:46 AM [facility] Blood (Plasma/Serum) 11/06/2024 4:58 AM EST 11/06/2024 5:15 AM EST Renea PATTON [place] [address], [place] [address] * MAGNESIUM (11/06/2024 4:58 AM EST) Magnesium 2.5 1.6 - 2.7 mg/dL 11/06/2024 5:46 AM [facility] Blood (Plasma/Serum) 11/06/2024 4:58 AM EST 11/06/2024 5:15 AM EST Renea PATTON LAB BLOOD ORDERABLES [facility] [address] [place] [address], [facility] [address] [place] [address] * (ABNORMAL) Comprehensive Metabolic Panel (11/06/2024 4:58 AM EST) Glucose 194(H) 65 - 99 mg/dL 11/06/2024 5:46 AM [facility] Comment:Fasting: <100 mg/dL, Non-Fasting: <200 mg/dL (ADA 2004) Blood Urea Nitrogen (BUN) 48(H) 8 - 21 mg/dL 11/06/2024 5:46 AM [facility] Creatinine 1.7(H) 0.5 - 1.3 mg/dL 11/06/2024 5:46 AM [facility] eGFR 45(L) >59 11/06/2024 5:46 AM [facility] Comment:CKD-EPI (2020) in mL /min/1.73 sq meters. Sodium 131(L) 136 - 145 mmol/L 11/06/2024 5:46 AM [facility] Potassium 3.8 3.4 - 5.3 mmol/L 11/06/2024 5:46 AM [facility] Chloride 99 98 - 107 mmol/L 11/06/2024 5:46 AM [facility] CO2 20(L) 22 - 33 mmol/L 11/06/2024 5:46 AM [facility] Calcium 7.8(L) 8.7 - 10.5 mg/dL 11/06/2024 5:46 AM [facility] Alkaline Phosphatase 270(H) 45 - 128 U/L 11/06/2024 5:46 AM [facility] Aspartate Aminotrans (AST) 50 10 - 55 U/L 11/06/2024 5:46 AM [facility] Alanine Aminotrans (ALT) 31 10 - 55 U/L 11/06/2024 5:46 AM [facility] Bilirubin, Total 0.2 0.2 - 1.0 mg/dL 11/06/2024 5:46 AM [facility] Protein, Total 5.7(L) 6.3 - 8.3 g/dL 11/06/2024 5:46 AM [facility] Albumin 2.4(L) 3.4 - 4.8 g/dL 11/06/2024 5:46 AM [facility] BUN/Creatinine Ratio 28(H) 10.0 - 25.0 Ratio 11/06/2024 5:46 AM [facility] Globulin 3.3 1.5 - 3.9 g/dL 11/06/2024 5:46 AM [facility] Albumin/Globulin Ratio 0.7(L) 1.0 - 3.0 Ratio 11/06/2024 5:46 AM [facility] Anion Gap 12 7 - 17 11/06/2024 5:46 AM [facility] Blood (Plasma/Serum) 11/06/2024 4:58 AM EST 11/06/2024 5:15 AM EST Renea PATTON LAB BLOOD ORDERABLES Performing Organization Address City/[facility]/[place] [address], [place] [address] * BLOOD CULTURE Peripheral (11/06/2024 4:58 AM EST) Culture Sterile after 5 days 11/11/2024 8:20 AM [facility] Microbiology Peripheral blood specimen / Unknown 11/06/2024 4:58 AM EST 11/06/2024 5:36 AM EST Renea PATTON LAB AMB MICRO ORDERA BLES [facility] [address] [place] [address], * BLOOD CULTURE Peripheral (11/06/2024 4:58 AM EST) Culture Sterile after 5 days 11/11/2024 8:20 AM [facility] Microbiology Peripheral blood specimen / Unknown 11/06/2024 4:58 AM EST 11/06/2024 5:36 AM EST Renea PATTON LAB AMB MICRO ORDERA BLES Performing Organization Address [facility] Co de Phone Number [facility] [address] [place] [address], * (ABNORMAL) POCT Glucose, Fingerstick (11/06/2024 1:17 AM EST) POC Glucose 229(H) 65 - 99 mg/dL 11/06/2024 1:18 AM EST Blood specimen / Unknown 11/06/2024 1:17 AM EST 11/06/2024 1:18 AM EST Dallas Camejo MD POINT OF CARE TEST O RDERALUCILLE Performing Organization Address [facility] Co de Phone Number [facility] See Below * (ABNORMAL) POCT Glucose, Fingerstick (11/05/2024 11:05 PM EST) POC Glucose 251(H) 65 - 99 mg/dL 11/05/2024 11:07 PM EST Blood specimen / Unknown 11/05/2024 11:05 PM EST 11/05/2024 11:07 PM EST Dallas Camejo MD POINT OF CARE TEST O RDERALUCILLE Performing Organization Address [facility] Co de Phone Number [facility] See Below * (ABNORMAL) POCT Glucose, Fingerstick (11/05/2024 6:10 PM EST) POC Glucose 138(H) 65 - 99 mg/dL 11/05/2024 6:10 PM EST Blood specimen / Unknown 11/05/2024 6:10 PM EST 11/05/2024 6:11 PM EST Dallas Camejo MD POINT OF CARE TEST O RDERALUCILLE Performing Organization Address [facility] Co de Phone Number [facility] See Below * (ABNORMAL) POCT Glucose, Fingerstick (11/05/2024 3:37 PM EST) POC Glucose 138(H) 65 - 99 mg/dL 11/05/2024 3:38 PM EST Blood specimen / Unknown 11/05/2024 3:37 PM EST 11/05/2024 3:38 PM EST Dallas Camejo MD POINT OF CARE TEST O RDERABLES [facility]OSPITAL LAB See Below * Pathology (11/05/2024 2:11 PM EST) Report [facility] CT [id number] ?? CLIA ID [id number] [address] [place], [place] ??[address] [phone] Surgical Pathology Report PATIENT NAME: BLAS GENAO REC NUMBER: [id number] (AGE): 1960 (Age: 63) SPECIMEN NUMBER: [id number] DATE OBTAINED: 11/05/2024 DIAGNOSIS LEFT LOWER EXTREMITY, BELOW KNEE AMPUTATION: ??SEVERE PERIPHERAL ARTERIOSCLEROSIS WITH CALCIFICATION, GANGRENOUS ULCER OF FOOT WITH SEVERE ACUTE OSTEOMYELITIS. NEGATIVE AMPUTATION MARGIN. /11/16/2024 Electronically Signed Out ? SENA SHABAZZ MD COMMENT [id number], [id number] Clinical Information and History: Acute osteomyelitis of [...] other masses or lesions are grossly identified. ??Senior Financial Reporting Accountant sections are submitted in A1 - ?? [...] EST Dallas Camejo MD PATHOLOGY/CYTOLOGY O RDERABLES [facility] See Below * (ABNORMAL) POCT Glucose, Fingerstick (11/05/2024 12:54 PM EST) POC Glucose 128(H) 65 - 99 mg/dL 11/05/2024 2:08 PM EST Blood specimen / Unknown 11/05/2024 12:54 PM EST 11/05/2024 2:08 PM EST Dallas Camejo MD POINT OF CARE TEST O RDERABLES Performing Organization Address City/[facility]/ZIP Co de Phone Number [facility] See Below * (ABNORMAL) PROTIME-INR (11/05/2024 7:12 AM EST) Pathologist [facility] Anticoagulant Information not given 11/05/2024 7:47 AM [facility] Prothrombin Time (PT) 15.3(H) 10.0 - 13.5 seconds 11/05/2024 8:07 AM [facility] INR 1.3 11/05/2024 8:07 AM [facility] Comment:INR Therapeutic Rang es: Standard dose anticoagulant 2.0 to 3.0, High dose anticoagulant 2.5-3.5. Plasma specimen / Unknown 11/05/2024 7:12 AM EST 11/05/2024 7:46 AM EST Chris Taylor MD LAB BLOOD ORDERABLES Performing Organization Address [facility] [place] [address], [place] [address] * (ABNORMAL) COMPLETE BLOOD COUNT, WITHOUT DIFFERENTIAL (11/05/2024 7:12 AM EST) Pathologist [facility] White Blood Cell Count 15.9(H) 4.0 - 11.0 Thou/uL 11/05/2024 7:59 AM [facility] Platelet Count 353 150 - 450 Thou/uL 11/05/2024 7:59 AM [facility] Hemoglobin 9.1(L) 13.0 - 17.7 g/dL 11/05/2024 7:59 AM [facility] Hematocrit 28.3(L) 39.0 - 54.0 % 11/05/2024 7:59 AM [facility] Red Blood Cell Count 3.12(L) 4.50 - 6.20 Mil/uL 11/05/2024 7:59 AM [facility] MCV 91 80 - 100 fL 11/05/2024 7:59 AM [facility] MCH 29.2 27.0 - 31.0 pg 11/05/2024 7:59 AM [facility] MCHC 32.2 30.0 - 36.0 g/dL 11/05/2024 7:59 AM [facility] RDW 16.8(H) 11.5 - 14.5 % 11/05/2024 7:59 AM [facility] MPV 9.8 7.5 - 12.5 fL 11/05/2024 7:59 AM [facility] Blood specimen / Unknown 11/05/2024 7:12 AM EST 11/05/2024 7:46 AM EST Chris Taylor MD [place] [address], [place] [address] * (ABNORMAL) BASIC METABOLIC PANEL (11/05/2024 7:12 AM EST) Glucose 146(H) 65 - 99 mg/dL 11/05/2024 8:18 AM [facility] Comment:Fasting: <100 mg/dL, Non-Fasting: <200 mg/dL (ADA 2005) Blood Urea Nitrogen (BUN) 47(H) 8 - 21 mg/dL 11/05/2024 8:18 AM [facility] Creatinine 2.0(H) 0.5 - 1.3 mg/dL 11/05/2024 8:18 AM [facility] eGFR 37(L) >59 11/05/2024 8:18 AM [facility] Comment:CKD-EPI (2020) in mL /min/1.73 sq meters. Sodium 130(L) 136 - 145 mmol/L 11/05/2024 8:18 AM [facility] Potassium 3.4 3.4 - 5.3 mmol/L 11/05/2024 8:18 AM [facility] Chloride 96(L) 98 - 107 mmol/L 11/05/2024 8:18 AM [facility] CO2 19(L) 22 - 33 mmol/L 11/05/2024 8:18 AM [facility] Anion Gap 15 7 - 17 11/05/2024 8:18 AM [facility] Calcium 7.9(L) 8.7 - 10.5 mg/dL 11/05/2024 8:18 AM [facility] BUN/Creatinine Ratio 24 10.0 - 25.0 Ratio 11/05/2024 8:18 AM [facility] Plasma/Serum 11/05/2024 7:12 AM EST 11/05/2024 7:46 AM EST Chris Taylor MD LAB BLOOD ORDERABLES Performing Organization Address City/State/[facility] [place] [address], [place] [address] * (ABNORMAL) Hepatic Function Panel (AM) (11/05/2024 7:12 AM EST) Alkaline Phosphatase 153(H) 45 - 128 U/L 11/05/2024 8:18 AM [facility] Aspartate Aminotrans (AST) 26 10 - 55 U/L 11/05/2024 8:18 AM [facility] Alanine Aminotrans (ALT) 23 10 - 55 U/L 11/05/2024 8:18 AM [facility] Bilirubin, Total 0.3 0.2 - 1.0 mg/dL 11/05/2024 8:18 AM [facility] Protein, Total 5.9(L) 6.3 - 8.3 g/dL 11/05/2024 8:18 AM [facility] Albumin 2.5(L) 3.4 - 4.8 g/dL 11/05/2024 8:18 AM [facility] Bilirubin, Direct 0.2 0 - 0.2 mg/dL 11/05/2024 8:18 AM EST [facility] Globulin 3.4 1.5 - 3.9 g/dL 11/05/2024 8:18 AM [facility] Albumin/Globulin Ratio 0.7(L) 1.0 - 3.0 Ratio 11/05/2024 8:18 AM EST [facility] Blood (Plasma/Serum) 11/05/2024 7:12 AM EST 11/05/2024 7:46 AM EST Chris Taylor MD LAB BLOOD ORDERABLES Performing Organization Address City/[facility]/[place] [address], [place] [address] * Creatine Kinase, Reflex to CKMB (11/05/2024 7:12 AM EST) Creatine Kinase (CK) 49 24 - 204 U/L 11/05/2024 8:18 AM [facility] Blood (Plasma/Serum) 11/05/2024 7:12 AM EST 11/05/2024 7:46 AM EST Chris Taylor MD LAB BLOOD ORDERABLES Performing Organization Address [facility]/[place] [address], [place] [address] * (ABNORMAL) POCT Glucose, Fingerstick (11/05/2024 6:26 [...] ruled out. Interpreted by: ??David Vogt DO Associate Application Developer I personally reviewed the images and the [...] ruled out. Interpreted by: David Vogt DO Associate Application Developer I personally reviewed the images and the resident's preliminary report and AGREE with the report as it is now presented ([id number]). Sullivan A Arian PA-C [facility] ORDERABLES * (ABNORMAL) POCT Glucose, Fingerstick (11/04/2024 8:52 PM EST) POC Glucose 258(H) 65 - 99 mg/dL 11/04/2024 9:36 PM EST Blood specimen / Unknown 11/04/2024 8:52 PM EST 11/04/2024 9:36 PM EST Dallas Camejo MD POINT OF CARE TEST O RDERALUCILLE Performing Organization Address [facility] LAB See Below * (ABNORMAL) POCT Glucose, Fingerstick (11/04/2024 5:00 PM EST) POC Glucose 172(H) 65 - 99 mg/dL 11/04/2024 5:22 PM EST Blood specimen / Unknown 11/04/2024 5:00 PM EST 11/04/2024 5:22 PM EST Dallas Camejo MD POINT OF CARE TEST O RDERALUCILLE Performing Organization Address [facility] Number [facility] LAB See Below * (ABNORMAL) POCT Glucose, Fingerstick (11/04/2024 12:43 PM EST) POC Glucose 167(H) 65 - 99 mg/dL 11/04/2024 12:48 PM EST Blood specimen / Unknown 11/04/2024 12:43 PM EST 11/04/2024 12:48 PM EST Dallas Camejo MD POINT OF CARE TEST O RDERALUCILLE Performing Organization Address [facility] Phone Number [facility] LAB See Below * (ABNORMAL) Complete Blood Count WITHOUT Differential - Early AM (11/04/2024 11:19 AM EST) White Blood Cell Count 13.4(H) 4.0 - 11.0 Thou/uL 11/04/2024 11:38 AM EST [facility] Platelet Count 326 150 - 450 Thou/uL 11/04/2024 11:38 AM [facility] Hemoglobin 8.7(L) 13.0 - 17.7 g/dL 11/04/2024 11:38 AM [facility] Hematocrit 28.0(L) 39.0 - 54.0 % 11/04/2024 11:38 AM [facility] Red Blood Cell Count 3.05(L) 4.50 - 6.20 Mil/uL 11/04/2024 11:38 AM [facility] MCV 92 80 - 100 fL 11/04/2024 11:38 AM [facility] MCH 28.5 27.0 - 31.0 pg 11/04/2024 11:38 AM [facility] MCHC 31.1 30.0 - 36.0 g/dL 11/04/2024 11:38 AM [facility] RDW 16.6(H) 11.5 - 14.5 % 11/04/2024 11:38 AM [facility] MPV 9.4 7.5 - 12.5 fL 11/04/2024 11:38 AM [facility] Blood Blood specimen / Unknown 11/04/2024 11:19 AM EST 11/04/2024 11:28 AM EST Renea PATTON LAB BLOOD ORDERABLES Performing Organization Address City/State/[facility] [place] [address], [place] [address] * (ABNORMAL) BLOOD CULTURE Peripheral (11/04/2024 11:03 AM EST) Gram stain suggestive of Gram positive cocci in clusters 11/07/2024 10:29 AM [facility] Culture Methicillin Resistant Staph aureus (MRSA) Aerobic bottle positive. Susceptibility of the same isolate identification, from the same apparent body site is only performed once per 5 calendar days. ?See susceptibilities reported on specimen collected 11/02/2024 (A) 11/08/2024 12:21 PM [facility] Microbiology Peripheral blood specimen / Unknown 11/04/2024 11:03 AM EST 11/04/2024 12:35 PM EST Chris Taylor MD LAB AMB MICRO ORDERA BLES Performing Organization Address [facility] Co de Phone Number [facility] [address] * (ABNORMAL) BLOOD CULTURE Peripheral (11/04/2024 11:03 AM EST) Gram stain suggestive of Gram positive cocci in clusters 11/07/2024 1:43 PM [facility] Culture Methicillin Resistant Staph aureus (MRSA) Aerobic bottle positive. Susceptibility of the same isolate identification, from the same apparent body site is only performed once per 5 calendar days. ?See susceptibilities reported on specimen collected 11/02/2024 (A) 11/08/2024 12:17 PM [facility] Microbiology Peripheral blood specimen / Unknown 11/04/2024 11:03 AM EST 11/04/2024 12:35 PM EST Chris Taylor MD LAB AMB MICRO ORDERA BLES Performing Organization Address [facility] Co de Phone Number [facility] [address] [place] [address], * (ABNORMAL) Basic Metabolic Panel (Routine) (11/04/2024 10:50 AM EST) Glucose 184(H) 65 - 99 mg/dL 11/04/2024 11:53 AM [facility] Comment:Fasting: <100 mg/dL, Non-Fasting: <200 mg/dL (ADA 2005) Blood Urea Nitrogen (BUN) 48(H) 8 - 21 mg/dL 11/04/2024 11:53 AM [facility] Creatinine 2.0(H) 0.5 - 1.3 mg/dL 11/04/2024 11:53 AM [facility] eGFR 37(L) >59 11/04/2024 11:53 AM [facility] Comment:CKD-EPI (2020) in mL /min/1.73 sq meters. Sodium 130(L) 136 - 145 mmol/L 11/04/2024 11:53 AM [facility] Potassium 3.7 3.4 - 5.3 mmol/L 11/04/2024 11:53 AM [facility] Chloride 95(L) 98 - 107 mmol/L 11/04/2024 11:53 AM [facility] CO2 21(L) 22 - 33 mmol/L 11/04/2024 11:53 AM [facility] Anion Gap 14 7 - 17 11/04/2024 11:53 AM [facility] Calcium 7.7(L) 8.7 - 10.5 mg/dL 11/04/2024 11:53 AM [facility] BUN/Creatinine Ratio 24 10.0 - 25.0 Ratio 11/04/2024 11:53 AM [facility] Blood (Plasma/Serum) 11/04/2024 10:50 AM EST 11/04/2024 11:28 AM EST Juaquin Kern MD LAB BLOOD ORDERABL ES Performing Organization Address City/State/[facility] [place] [address], [place] [address] * ECHOCARDIOGRAM COMPREHENSIVE (11/04/2024 9:05 AM EST) [...] ?Compared to previous outside study report from [facility] on 08/05/2024, Mitral and tricuspid regurgitation were [...] Compared to previous outside study report from [facility] on 08/05/2024, Mitral and tricuspid regurgitation were [...] BANK PRODUCT O RDERABLES Performing Organization Address [facility] Number [facility] LAB See Below * (ABNORMAL) POCT Glucose, Fingerstick (11/03/2024 9:25 PM EST) POC Glucose 229(H) 65 - 99 mg/dL 11/03/2024 9:26 PM EST Blood specimen / Unknown 11/03/2024 9:25 PM EST 11/03/2024 9:26 PM EST Dallas Camejo MD POINT OF CARE TEST O RDERALUCILLE Performing Organization Address [facility] Number [facility] LAB See Below * (ABNORMAL) POCT Glucose, Fingerstick (11/03/2024 5:50 PM EST) POC Glucose 158(H) 65 - 99 mg/dL 11/03/2024 6:19 PM EST Blood specimen / Unknown 11/03/2024 5:50 PM EST 11/03/2024 6:19 PM EST Dallas Camejo MD POINT OF CARE TEST O RDERABLES Performing Organization Address [facility] Number [facility] LAB See Below * (ABNORMAL) POCT Glucose, Fingerstick (11/03/2024 11:43 AM EST) POC Glucose 153(H) 65 - 99 mg/dL 11/03/2024 11:48 AM EST Blood specimen / Unknown 11/03/2024 11:43 AM EST 11/03/2024 11:48 AM EST Dallas Camejo MD POINT OF CARE TEST O RDERABLES Performing Organization Address [facility]/ZIP Co de Phone Number HOSPITAL LAB See Below * Creatine Kinase (CK) (11/03/2024 10:52 AM EST) Creatine Kinase (CK) 61 24 - 204 U/L 11/03/2024 11:37 AM EST [facility] Blood (Plasma/Serum) 11/03/2024 10:52 AM EST 11/03/2024 11:10 AM EST Ena Mtz MD LAB BLOOD ORDERA BLES Performing Organization Address [facility] [place] [address], [place] [address] * (ABNORMAL) POCT Glucose, Fingerstick (11/03/2024 7:56 AM EST) POC Glucose 165(H) 65 - 99 mg/dL 11/03/2024 8:04 AM EST Blood specimen / Unknown 11/03/2024 7:56 AM EST 11/03/2024 8:04 AM EST Dallas Camejo MD POINT OF CARE TEST O RDERALUCILLE Performing Organization Address [facility] Co de Phone Number HOSPITAL LAB See Below * MRSA PCR Screen, Qualitative (11/03/2024 3:24 AM EST) MRSA Result Not Detected Not Detected 7:00 AM EST [facility] Comment:Performed by the Xpe rt MRSA NxG Assay X-Specimen 12 Specimen from nose / Unknown 11/03/2024 3:24 AM EST 11/03/2024 5:23 AM EST Kenzie PATTON MICROBIOLOGY - GENE RAL ORDERABLES Performing Organization Address [facility] [place] [address], [place] [address] * ECG 12 lead (STAT) (11/02/2024 9:34 PM EST) Ventricular rate 70 BPM EKG [facility] Atrial rate 70 BPM EKG [facility] P-R interval 272 ms EKG [facility] QRS duration 202 ms EKG [facility] Q-T interval 510 ms EKG [facility] QTC calculation (Bazett) 551 ms EKG [facility] P axis 81 degrees EKG [facility] R axis 29 degrees EKG [facility] T axis 132 degrees EKG [facility] 11/02/2024 9:34 PM EST [facility]ative [facility] - 11/03/2024 4:30 PM [...] Kenzie PATTON ECG ORDERABLES [facility] * (ABNORMAL) POCT Glucose, Fingerstick (11/02/2024 9:19 PM EST) POC Glucose 163(H) 65 - 99 mg/dL 11/02/2024 9:20 PM EST Blood specimen / Unknown 11/02/2024 9:19 PM EST 11/02/2024 9:20 PM EST Dallas Camejo MD POINT OF CARE TEST O RDERABLES HOSPITAL LAB See Below * (ABNORMAL) Blood Culture ID PCR Panel (11/02/2024 8:00 PM EST) [facility] BC ID PCR Result Summary Enterococcus faecalis Vancomycin resistance gene detected by molecular method. Please refer to detailed susceptibility results when available and suggest consultation with Infectious Diseases for management. 11/03/2024 6:06 PM [facility] BC ID PCR Result Summary Enterococcus faecium Vancomycin resistance gene detected by molecular method. Please refer to detailed susceptibility results when available and suggest consultation with Infectious Diseases for management. 11/03/2024 6:06 PM [facility] BC ID PCR Result Summary Methicillin Resistant Staph aureus (MRSA) 11/03/2024 6:06 PM [facility] Methicillin resistance gene mecA/C Detected(A) 11/03/2024 6:06 PM [facility] Vancomycin resistance genes Eugenia/B Detected(A) 11/03/2024 6:06 PM [facility] Enterococcus faecalis Detected(A) 11/03/2024 6:06 PM [facility] Enterococcus faecium Detected(A) 11/03/2024 6:06 PM [facility] Listeria monocytogenes Not Detected 11/03/2024 6:06 PM [facility] Staphylococcus Detected(A) 6:06 PM [facility] Staphylococcus aureus Detected(A) 11/03/2024 6:06 PM [facility] Staphylococcus epidermidis Not Detected 11/03/2024 6:06 PM [facility] Staphylococcus lugdunensis Not Detected 11/03/2024 6:06 PM [facility] Streptococcus Not Detected 6:06 PM [facility] Streptococcus agalactiae Not Detected 11/03/2024 6:06 PM [facility] Streptococcus pneumoniae Not Detected 11/03/2024 6:06 PM [facility] Streptococcus pyogenes Not Detected 11/03/2024 6:06 PM [facility] Acinetobacter calcoaceticus-bauma nnii complex Not Detected 11/03/2024 6:06 PM [facility] Bacteroides fragilis Not Detected 11/03/2024 6:06 PM [facility] Enterobacterales Not Detected 2024 6:06 PM [facility] Enterobacter cloacae complex Not Detected 11/03/2024 6:06 PM [facility] Escherichia coli Not Detected 2024 6:06 PM [facility] Klebsiella aerogenes Not Detected 11/03/2024 6:06 PM [facility] Klebsiella oxytoca Not Detected 01/2025 6:06 PM [facility] Klebsiella pneumoniae group Not Detected 11/03/2024 6:06 PM [facility] Proteus Not Detected 11/03/2024 6:06 PM [facility] Salmonella Not Detected 11/03/2024 6:06 PM [facility] Serratia marcescens Not Detected 01/2025 6:06 PM [facility] Haemophilus influenza Not Detected 11/03/2024 6:06 PM [facility] Neisseria meningitidis Not Detected 11/03/2024 6:06 PM [facility] Pseudomonas aeruginosa Not Detected 11/03/2024 6:06 PM [facility] Stenotrophomonas maltophilia Not Detected 11/03/2024 6:06 PM [facility] Fernanda albicans Not Detected 2024 6:06 PM [facility] Fernanda auris Not Detected 6:06 PM [facility] Fernanda glabrata Not Detected 2024 6:06 PM [facility] Fernanda krusei Not Detected 11/03/19 6:06 PM [facility] Fernanda parapsilosis Not Detected 11/03/2024 6:06 PM [facility] Cryptococcus neoformans/gattii Not Detected 11/03/2024 6:06 PM [facility] PCR ID Comment Antimicrobial resistance can occur via multiple mechanisms. A Not Detected result for antimicrobial resistance gene(s) does not indicate antimicrobial susceptibility. Subculturing is required for species identification and susceptibility testing of isolates. 11/03/2024 6:06 PM [facility] 11/02/2024 8:00 PM EST 11/02/2024 8:29 PM EST Kenzie PATTON MICROBIOLOGY - GENE RAL ORDERABLES [facility] [address] [place] [address], * (ABNORMAL) Erythrocyte Sedimentation Rate (ESR) (11/02/2024 8:00 PM EST) Erythrocyte Sediment Rate (ESR) 79(H) <20 MM/HR 11/02/2024 8:51 PM EST [facility] Blood specimen / Unknown 11/02/2024 8:00 PM EST 11/02/2024 8:22 PM EST Kenzie Mcknight Taylor PATTON LAB BLOOD ORDERABLE S Performing Organization Address City/[facility]/[place] [address], [place] [address] * (ABNORMAL) C-REACTIVE PROTEIN (11/02/2024 8:00 PM EST) Pathologist [facility] C-Reactive Protein 29.62(H) 0 - 0.49 mg/dL 11/03/2024 12:04 AM [facility] Plasma/Serum 11/02/2024 8:00 PM EST 11/02/2024 8:22 PM EST eKnzie Mcknight Taylor PATTON LAB BLOOD ORDERABLE S Performing Organization Address City/[facility]/[place] [address], [place] [address] * (ABNORMAL) BLOOD CULTURE Peripheral (11/02/2024 8:00 PM EST) Gram stain suggestive of Gram positive cocci 11/03/2024 3:55 PM EST [facility] Culture Methicillin Resistant Staph aureus (MRSA) Aerobic and Anaerobic bottle positive. Complete identification and susceptibility of the same isolate, if appropriate, performed on only one blood culture collection per day. (A) 11/06/2024 12:15 PM EST [facility] Culture Enterococcus faecalis Aerobic and Anaerobic bottle positive. Complete identification and susceptibility of the same isolate, if appropriate, performed on only one blood culture collection per day. (A) 11/06/2024 12:15 PM EST [facility] Microbiology Peripheral blood specimen / Unknown 11/02/2024 8:00 PM EST 11/02/2024 8:28 PM EST Sagrario Taylor PATTON LAB AMB MICRO ORDER JOSE [facility] [address] [place] [address], * (ABNORMAL) BLOOD CULTURE Peripheral (11/02/2024 8:00 PM EST) Gram stain suggestive of Gram positive cocci 11/03/2024 3:50 PM EST [facility] Culture Methicillin Resistant Staph aureus (MRSA) Aerobic and Anaerobic bottle positive. (A) 11/05/2024 1:52 PM EST [facility] Culture Enterococcus faecalis Aerobic and Anaerobic bottle positive. (A) 11/05/2024 1:52 PM EST [facility] Culture Enterococcus faecium Anaerobic bottle positive. (A) 11/05/2024 1:52 PM EST [facility] Microbiology Peripheral blood specimen [...] CTERIAL PATTI AND INTERPRETATION (MCG/ML) <=0.5: Susceptible Authorizing Provider Result Derick PATTON LAB AMB MICRO ORDER JOSE [facility] [address] [place] [address], * Vitamin D, 25-Hydroxy (11/02/2024 8:00 PM EST) Vitamin D, 25-Hydroxy 50 30 - 100 ng/mL 11/02/2024 9:10 PM EST [facility] Blood (Plasma/Serum) 11/02/2024 8:00 PM EST 11/02/2024 8:23 PM EST Sagrario Taylor PATTON [place] [address], [place] [address] * (ABNORMAL) TRANSFERRIN (11/02/2024 8:00 PM EST) Transferrin 178(L) 200 - 360 mg/dL 11/03/2024 12:04 AM [facility] Blood (Plasma/Serum) 11/02/2024 8:00 PM EST 11/02/2024 8:22 PM EST Kenzie PATTON [place] [address], [place] [address] * (ABNORMAL) Prealbumin (11/02/2024 8:00 PM EST) Prealbumin 7(L) 20 - 40 mg/dL 11/03/2024 12:04 AM [facility] Blood (Plasma/Serum) 11/02/2024 8:00 PM EST 11/02/2024 8:22 PM EST Kenzie Mcknight Taylor PATTON [place] [address], [place] [address] * (ABNORMAL) Albumin (11/02/2024 8:00 PM EST) Albumin 3.2(L) 3.4 - 4.8 g/dL 11/03/2024 12:04 AM [facility] Blood (Plasma/Serum) 11/02/2024 8:00 PM EST 11/02/2024 8:22 PM EST Kenzie Mcknight Taylor PATTON LAB BLOOD ORDERABLE S Performing Organization Address [facility] [place] [address], [place] [address] * (ABNORMAL) Protime-INR (Routine) (11/02/2024 8:00 PM EST) Anticoagulant APIXABAN (ELIQUIS) 11/02/2024 6:26 PM EST Prothrombin Time (PT) 14.7(H) 10.0 - 13.5 seconds 11/02/2024 9:05 PM [facility] INR 1.3 11/02/2024 9:05 PM [facility] Comment:INR Therapeutic Rang es: Standard dose anticoagulant 2.0 to 3.0, High dose anticoagulant 2.5-3.5. Blood Plasma specimen / Unknown 11/02/2024 8:00 PM EST 11/02/2024 8:22 PM EST SagrarioRoxanna PATTON LAB BLOOD ORDERABLE S Performing Organization Address City/[facility] [place] [address], [place] [address] * (ABNORMAL) Basic Metabolic Panel (STAT) (11/02/2024 8:00 PM EST) Glucose 171(H) 65 - 99 mg/dL 11/03/2024 12:04 AM [facility] Comment:Fasting: <100 mg/dL, Non-Fasting: <200 mg/dL (ADA 2005) Blood Urea Nitrogen (BUN) 41(H) 8 - 21 mg/dL 11/03/2024 12:04 AM [facility] Creatinine 2.0(H) 0.5 - 1.3 mg/dL 11/03/2024 12:04 AM [facility] eGFR 37(L) >59 11/03/2024 12:04 AM [facility] Comment:CKD-EPI (2020) in mL /min/1.73 sq meters. Sodium 130(L) 136 - 145 mmol/L 11/03/2024 12:04 AM [facility] Potassium 4.0 3.4 - 5.3 mmol/L 11/03/2024 12:04 AM [facility] Chloride 92(L) 98 - 107 mmol/L 11/03/2024 12:04 AM [facility] CO2 19(L) 22 - 33 mmol/L 11/03/2024 12:04 AM [facility] Anion Gap 19(H) 7 - 17 11/03/2024 12:04 AM [facility] Calcium 8.5(L) 8.7 - 10.5 mg/dL 11/03/2024 12:04 AM [facility] BUN/Creatinine Ratio 21 10.0 - 25.0 Ratio 11/03/2024 12:04 AM [facility] Blood (Plasma/Serum) 11/02/2024 8:00 PM EST 11/02/2024 8:22 PM EST Kenzie PATTON LAB BLOOD ORDERABLE S Performing Organization Address City/State/[facility] [place] [address], [place] [address] * (ABNORMAL) Complete Blood Count WITH Differential - STAT (11/02/2024 8:00 PM EST) White Blood Cell Count 14.3(H) 4.0 - 11.0 Thou/uL 11/02/2024 8:32 PM [facility] Platelet Count 395 150 - 450 Thou/uL 11/02/2024 8:32 PM [facility] Hemoglobin 9.3(L) 13.0 - 17.7 g/dL 11/02/2024 8:32 PM [facility] Hematocrit 29.3(L) 39.0 - 54.0 % 11/02/2024 8:32 PM [facility] Red Blood Cell Count 3.20(L) 4.50 - 6.20 Mil/uL 11/02/2024 8:32 PM [facility] MCV 92 80 - 100 fL 11/02/2024 8:32 PM [facility] MCH 29.1 27.0 - 31.0 pg 11/02/2024 8:32 PM [facility] MCHC 31.7 30.0 - 36.0 g/dL 11/02/2024 8:32 PM [facility] RDW 16.1(H) 11.5 - 14.5 % 11/02/2024 8:32 PM [facility] MPV 9.5 7.5 - 12.5 fL 11/02/2024 8:32 PM [facility] Neutrophils Auto 81.9 % 11/02/19 8:32 PM [facility] Immature Granulocytes 0.6 % 11/02/2024 8:32 PM [facility] Lymphocytes Auto 4.8 % 11/02/19 8:32 PM [facility] Monocytes Auto 12.2 % 11/02/2024 8:32 PM [facility] Eosinophils Auto 0.1 % 11/02/19 8:32 PM [facility] Basophils Auto 0.4 % 11/02/2024 8:32 PM [facility] Abs Neutrophils Auto 11.67(H) 2.00 - 7.50 Thou/uL 11/02/2024 8:32 PM [facility] Abs Immature Granulocytes 0.08 0.00 - 0.10 Thou/uL 11/02/2024 8:32 PM [facility] Abs Lymphocytes Auto 0.69(L) 1.50 - 4.50 Thou/uL 11/02/2024 8:32 PM [facility] Abs Monocytes Auto 1.74(H) 0.20 - 1.50 Thou/uL 11/02/2024 8:32 PM [facility] Abs Eosinophils Auto 0.02 0.00 - 0.70 Thou/uL 11/02/2024 8:32 PM [facility] Abs Basophils Auto 0.05 0.00 - 0.20 Thou/uL 11/02/2024 8:32 PM [facility] Blood Blood specimen / Unknown 11/02/2024 8:00 PM EST 11/02/2024 8:22 PM EST [facility] [place] [address], [place] [address] * Type and Screen (11/02/2024 7:56 PM EST) ABO/Rh A POSITIVE 11/02/2024 10:22 PM [facility] Antibody Screen NEGATIVE 11/02/2024 10:22 PM [facility] Specimen Expiration 11/05/2024 11/02/2024 10:22 PM [facility] Unit Number [id number] 11/04/2024 6:58 AM [facility] Blood Component Type LEUKOREDUCED RED CELLS 11/04/2024 6:58 AM [facility] Unit Division 00 11/04/2024 6:58 AM [facility] Unit Status REL FROM ALLOC 9:33 PM [facility] Transfusion Status OK TO TRANSFUSE 11/04/2024 6:58 AM [facility] Crossmatch Result Electronically Compatible 11/04/2024 6:58 AM [facility] Unit Number [id number] 11/04/2024 6:58 AM [facility] Blood Component Type LEUKOREDUCED RED CELLS 11/04/2024 6:58 AM [facility] Unit Division 00 11/04/2024 6:58 AM [facility] Unit Status REL FROM ALLOC 9:33 PM [facility] Transfusion Status OK TO TRANSFUSE 11/04/2024 6:58 AM [facility] Crossmatch Result Electronically Compatible 11/04/2024 6:58 AM [facility] Blood Blood specimen / Unknown 11/02/2024 7:56 PM EST 11/02/2024 8:51 PM EST Comment:Blood [facility] BLOOD BANK TEST ORD ERAB[facility] [place] [id number] * (ABNORMAL) POCT Glucose, Fingerstick (11/02/2024 6:48 [...] Bacteremia 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 Please complete the [...] 0935 (Given - Provider: Mitesh Caldwell, JOSUE) bumetanide (BUMEX) tablet 2 mg 2 mg, [...] Nelson Iqbal RN)2109 (Given - Provider: Marisel Wary RN) 0815 (Given - Provider: Mitesh Caldwell, JOSUE)2108 (Given - Provider: Agnieszka Torrez RN) 0935 (Given - Provider: Mitesh Caldwell RN) calcium citrate (CALCITRATE) tablet 950 mg 950 mg, Oral, 2 times daily with meals, First dose on Fri11/06/24 at 0800, Calcium Citrate 950 mg = Elemental Calcium 200 mg 0852 (Given - Provider: Nelson Iqbal RN)1729 (Given - Provider: Nelson Iqbal RN) 0814 (Given - Provider: Mitesh Caldwell, JOSUE)1753 (Given - Provider: Page Montemayor RN) 0935 (Given - Provider: Mitesh Caldwell RN)1700 (Not Given - Provider: Mitesh Caldwell RN - Reason: Patient/family refused) cefTRIAXone (ROCEPHIN) 2 g in sodium chloride-MBP (NS) 100 mL IVPB-MBP 2 g, Intravenous, at 200 mL/hr, Every 24 hours, First dose on [place] 11/18/24 at 1130, All antimicrobials used at [facility] require an indication. Please complete the [...] Nelson Iqbal RN) 0815 (Given - Provider: Mtiesh Caldwell RN) 0935 (Given - Provider: Mitesh [...] Nelson Iqbal, JOSUE)1728 (Given - Provider: Nelson Iqbal, JOSUE)2108 (Given [...] Wray RN) 0815 (Given - Provider: Mitesh Caldwell, JOSUE)2107 (Given - Provider: Agnieszka Torrez, JOSUE) 0935 (Given - Provider: Mitesh Caldwell, JOSUE) multivitamin with minerals tablet 1 tablet 1 [...] Nelson Iqbal RN)2108 (Given - Provider: Marisel Wray, JOSUE) 0815 (Given - Provider: Mitesh Caldwell RN)1351 (Given - Provider: Page Montemayor RN)2108 (Given - Provider: Agnieszka Torrez, JOSUE) 0935 (Given - Provider: Mitesh Caldwell, JOSUE)1233 (Given - Provider: Mitesh Caldwell RN) senna-docusate (SENNA-S) 8.6-50 MG tablet 2 tablet 2 tablet, Oral, 2 times daily, First dose on Fri11/05/24 at 2100 0853 (Given - Provider: Nelson Iqbal RN)2112 (Given - Provider: Marisel Wray, JOSUE) 0814 (Given - Provider: Mitesh Caldwell, JOSUE)2109 (Given - Provider: Agnieszka Torrez, JOSUE) 0936 (Given - Provider: Mitesh Caldwell, JOSUE) thiamine mononitrate (VITAMIN B-1) tablet 200 mg 200 mg, Oral, Daily, First dose on Fri11/05/24 at 1700 1041 (Given - Provider: Nelson Iqbal RN) 0814 (Given - Provider: Mitesh Caldwell, JOSUE) 0934 (Given - Provider: Mitesh Caldwell RN) [...] PRN, nausea, vomiting, Starting on Fri11/05/24 at 191 documented in this encounter 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/10/24 09/16/2024 09/16/2024 11/24/2024 3:08 P M EST R/O Respiratory Disease 11/07/2024 11/07/202410/30 7:06 AM EST R/O Respiratory Disease 11/23/2024 11/23/202410/31 12:00 PM EST documented as of this encounter Care Teams Overnight Cashier Relationship Specialty Start Date End Date Lee Fabian MD [address] [place] [address] PCP - General Internal Medicine 09/02/24 Vitaliy Fields MD [address] [place] [address] Cardiovascular Disease 09/02/24 Dallas Camejo MD [address] [place] [address] Surgery, Orthopedic 09/02/24 Rolando Lopez MD [address] Transplant - Ph [address] [place] [address] Physician Nephrology 09/02/24 documented as of this encounter
--- OUTSIDE RECORDS SUMMARY | 2024-12-03 15:23 | XMS_ITS | Encounter Summary ---
Author Organization [facility] Address [address] [place] [address] Care Team Providers Care Welder 2Nd Shift Name Role Phone Lee Fabian MD Primary Care Provider [phone] Vitaliy Fields MD Unavailable [phone] Dallas Camejo MD Unavailable [phone] Rolando Lopez MD Unavailable [phone] Cesar Fair MD Unavailable [phone] Encounter Details Date Type Department Care Team (Latest Contact Info) Description 11/11/2024 Travel Social History Tobacco Use Types Packs/Day Years Used Date Smoking Tobacco: Former Cigarettes 1 29.2 1 977 - 2004 Smokeless Tobacco: Never Alcohol Use Standard Drinks/Week Comments Yes 21 (1 standard drink = 0.6 oz pu re alcohol) [facility] Utilities Answer Date Recorded In the past 12 months has [employer], gas, oil, or water [employer] threatened to shut off services in your [...] Info) Description 12/07/2024 1:30 PM EDT Appointment [facility] Heart & Vascular [place] - Electrophysiology [address] [place] [address] Gretel Hinds, COMPOUND FILLER [address] [phone] 12/14/2024 2:00 PM EDT [facility] [address] [place] [address] Dallas Camejo MD [address] [place] [address] 12/16/2024 8:30 AM EDT Office Visit [facility] Infectious Disease [address] [place] [address] Ena Mtz MD [address] [place], [place] [phone] documented as of this encounter Visit Diagnoses Not on filedocumented in this encounter 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/10/24 09/16/2024 09/16/2024 11/24/2024 3:08 P M EST documented as of this encounter Care Teams Welder 2Nd Shift Relationship Specialty Start Date End Date Lee Fabian MD [address] [place] [address] PCP - General Internal Medicine 09/02/24 Vitaliy Fields MD [address] [place] [address] Cardiovascular Disease 09/02/24 Dallas Camejo MD [address] [place] [address] Surgery, Orthopedic 09/02/24 Rolando Lopez MD [address] Transplant - Ph [address] [place] [address] Physician Nephrology 09/02/24 Cesar Fair MD 85 [facility] [address] [place] [address] Surgery, Cardiac 11/08/24 documented as of this encounter
--- OUTSIDE RECORDS SUMMARY | 2024-12-03 15:24 | XMS_ITS | Encounter Summary ---
Author Organization [facility] Address [address] [place] [address] Care Team Providers Care Photolithographic Stripper Name Role Phone Lee Fabian MD Primary Care Provider [phone] Vitaliy Fields MD Unavailable Dallas Camejo MD Unavailable [phone] Rolando Lopez MD Unavailable [phone] Reason for Visit * Auth/Cert Specialty Diagnoses / Procedures Referred By [place] t Referred To Contact Diagnoses left ankle infection Procedures N/A Referral ID Status Reason Start Date Expiration Date Visits Re quested Visits Authorized [id number] 1 1 Encounter Details Date Type Department Care Team (Late st Contact Info) Description 11/05/2024 1:15 PM EST Anesthesia Event [facility] at [facility] [address] [place] [phone] Gaston Martinez MD [address] [address] Juaquin Rueda MD [address] [place] [address] Anesthesia Record Procedure Summary Procedure Name Responsible [...] left; ankle/foot; splint 09/10/24 1301 by Mary Emeyr RN Wound (Adult, Obstetrics, Pediatric) 11/02/24; 1900; [...] cephalic vein (lateral side of arm), left; [id number] catheter system; 22 gauge, 1 in length, [...] drink = 0.6 oz pu re alcohol) [facility] Utilities Answer Date Recorded In the past 12 months has [employer], gas, oil, or water [employer] threatened to shut off services in your [...] Info) Description 12/07/2024 1:30 PM EDT Appointment [facility] Heart & Vascular [place] - Electrophysiology [address] [place] [address] Gretel Hinds, CHIP MIXER [address] [address] 12/14/2024 2:00 PM EDT [facility] [address] [address] Dallas Camejo MD [address] [place] [address] 12/16/2024 8:30 AM EDT Office Visit [facility] Infectious Disease [address] [place] [phone] Ena Mtz MD [address] [place] [id number] documented as of this encounter Procedures Procedure [...] procedure. Patient tolerated well. Gaston Martinez MD [place] ANESTHESIA documented in this encounter Visit Diagnoses [...] documented as of this encounter Care Teams Photolithographic Stripper Relationship Specialty Start Date End Date Lee Fabian MD [address] [place] [address] PCP - General Internal Medicine 09/02/24 Vitaliy Fields MD [address] [place] [address] Cardiovascular Disease 09/02/24 Dallas Camejo MD [address] [place] [address] Surgery, Orthopedic 09/02/24 Rolando Lopez MD [address] Transplant - [address] [place] [address] Physician Nephrology 09/02/24 documented as of this encounter
--- OUTSIDE RECORDS SUMMARY | 2024-12-03 15:25 | XMS_ITS | Encounter Summary ---
Author Organization [facility] Address [address] [place] [address] Care Team Providers Care Carpet Cutter Name Role Phone Lee Fabian MD Primary Care Provider [phone] Vitaliy Fields MD Unavailable [phone] Dallas Camejo MD Unavailable Rolando Lopez MD Unavailable [phone] Cesar Fair MD Unavailable Reason for Visit * Auth/Cert Specialty Diagnoses / Procedures Referred By Contac t Referred To Contact Diagnoses left ankle infection Procedures N/A Referral ID Status Reason Start Date Expiration Date Visits Re quested Visits Authorized [id number] 1 1 Encounter Details Date Type Department Care Team (Late st Contact Info) Description 11/17/2024 1:37 PM EST - 11/17/2024 4:43 PM EST Surgery [facility] Perioperative Surgical Services [address] [place] [address] Rui Pabon MD [address] [place] [address] [id number] Extraction lead(s) laser from dual PM system; [id number] Social History Tobacco Use Types Packs/Day Years Used Date Smoking Tobacco: Former Cigarettes 1 29.2 1 977 - 2004 Smokeless Tobacco: Never Alcohol Use Standard Drinks/Week Comments Yes 21 (1 standard drink = 0.6 oz pu re alcohol) [facility] Utilities Answer Date Recorded In [...] in the past 12 [facility], were you homeless or living in a [place] facility (including now)? No 11/03/2024 Sex and Gender [...] MD (Surgery, Cardiac) Daisy Her PT as Construction Trades Contractor (Physical Medicine and Rehabilitation) PRIMARY DISCHARGE DIAGNOSIS [...] regurgitation (POA: Unknown) Resolved Problems: DISCHARGE DISPOSITION Nursing Home Facility Code Status Procedures Full code . [...] Continuous Glucose Sensor (FreeStyle Wallace 3 Sensor) [facility] INJECT 1 DEVICE INTO THE SKIN EVERY [...] Routine Referral Type: Home Health Referral Location: [facility] [...] Department Center 12/07/2024 1:30 PM ROOM, ICD/PACER/LOOP [facility] ARRHY [facility] Arrhythmi 12/15/2024 10:45 AM Alba Ramos MD [id number] PM&r 12/16/2024 8:30 AM Ena Mtz MD [...] PAD, RLS and CKD3 that presents to [facility] inpatient floor as a direct [...] PPM, chronic diastolic heart failure, hypertension, hyperlipidemia, MREVIN on CPAP, CKD stageIII, PAD/PVD who presented [...] while on IV antibiotics. Fax results to [phone] 4. Patient will need to be scheduled [...] Case IDs Date Procedure Surgeon Location Status [id number] 11/05/24 LEFT BELOW KNEE AMPUTATION Dallas Camejo MD [facility] OR Comp [id number] 11/17/24 Extraction lead(s) laser from dual PM system; [id number] Rui Pabon MD Main OR Comp [id number] 11/19/24 CVC INSERT (TUNNEL)W/O PORT > 5 YRS Devon Vogt DO IR Comp Diagnostic Studies: XR Foot 1 view-Left Result Date: 11/02/2024 This exam was performed in office at [facility] and images reviewed by orthopedic provider. [...] Device Extraction Discharge Instructions Important phone numbers: Nursing Services Manager/Surgeon???s office: [phone] (8am-4:30pm Fri - Friday Our answering service [...] If it does not stop, go to [facility] ER or walk-in center. If you experience any of the above, call your surgeon/air traffic control manager???s office immediately. If still present, remove the [...] Report any of these symptoms to your air traffic control manager. Call your primary hydraulic press tender if you experience any of the following: [...] Discharge Instructions Important phone numbers: Pacemaker [facility]: [phone] (8am-4:30pm Fri-Friday) Nursing Services Manager/Surgeon???s office: [phone] (8am-4:30pm Fri -Friday) Our answering service is [...] experience any of the above, call your air traffic control manager???s office immediately It is normal to have [...] dental procedure. You should call your primary hydraulic press tender if you experience any of the following: [...] when you get home. If your primary hydraulic press tender???s office will monitor your pacemaker, please call [...] through the weekend - advised to call [employer] care - phone number on pg 5 [...] Plan Plan Home w/family and [facility] Patient/Family in Agreement with Plan yes Final Discharge Disposition Code 06 - home with home health care Final Case Management Care Plan Note Summary: Per provider, patient is medically ready to transition home with services. Confirmed that patient is able to obtain medications/food/necessities post discharge. Patient now refusing HSC (LTACH) and returning home with son, [facility] for IV abx and [facility]. Final Destination: Home with son and [facility] Plan for home support/Caregiver/responsible person: Son and [facility] Follow-up provider appointment: Per AVS/W-10 Equipment Ordered [...] level of independence with self-care tasks. Current [facility] Daily Activity Score: 18 Precautions/Restrictions: aspiration, fall, [...] in recliner, in NAD on RA, agreeable. Bowling Ball Grader + limb protector donned to LLE Pain Assessment Pre/Posttreatment Pain Comment denied pain Coping Observed Emotional State calm;cooperative Safety Safety WDL WDL Progressive Mobility Progressive Mobility Level Achieved Transferring to Chair [facility] Daily Activity Putting on and taking off Lower Body Clothing? 3 Bathing (including washing/rinsing/drying)? 2 Toileting (includes using toilet, bedpan, or urinal)? 2 Putting on and taking off upper body clothing? 3 Taking care of personal grooming such as brushing teeth? 4 Eating meals? 4 [facility] Daily Activity Score 18 Progress Summary (OT) Progress Toward Functional Goals (OT) progress toward functional goals is good Sign: Christen Tapia, OT * Aditi Jones PA-C - 11/25/2024 11:50 AM EST PHYSICAL MEDICINE & REHABILITATION CONSULT FOLLOW-UP NOTE Patients Name: Blas Genao : 1960 MR Number: [id number] Reason for Consultation: Amputee rehab needs Date [...] support, tolerance to therapy and plan for enforcement manager antibiotics. He mayhave ability to progress to [...] drop Each Eye Q2H PRN Gretel Hinds, TECHNICAL SUPPORT PROFESSIONAL cefTRIAXone (ROCEPHIN) 2 g in sodium chloride-MBP [...] injection 5,000 Units 5,000 Units Subcutaneous Q8H [facility] Gianluca Calles MD 5,000 Units at 11/25/24 0931 insulin glargine (LANtus/SEMGLEE) 100 units/mL injection 10 Units 10 Units Subcutaneous Daily Corbin Lamb TECHNICAL SUPPORT PROFESSIONAL 10 Units at 11/25/24 0933 insulin lispro [...] 3 mL Nebulization Q2H PRN Corbin Lamb TECHNICAL SUPPORT PROFESSIONAL 3 mL at 11/07/24 1025 lactulose (ENULOSE) 10 gm/15 mL solution 20 g 20 g Oral Q4H PRN Corbin Lamb TECHNICAL SUPPORT PROFESSIONAL melatonin tablet 3 mg 3 mg Oral Nightly PRN Corbin Lamb TECHNICAL SUPPORT PROFESSIONAL 3 mg at 11/19/24 2222 methocarbamol (ROBAXIN) tablet 1,000 mg 1,000 mg Oral 4x Daily Corbin Lamb, TECHNICAL SUPPORT PROFESSIONAL 1,000 mg at 11/25/24 0934 metoPROLOL TARTRATE (LOPRESSOR) tablet 50 mg 50 mg Oral BID Corbin Lamb, TECHNICAL SUPPORT PROFESSIONAL 50 mg at 11/25/24 0935 multivitamin with minerals tablet 1 tablet 1 tablet Oral Daily Corbindenise Lamb, TECHNICAL SUPPORT PROFESSIONAL 1 tablet at 11/25/24 0935 naloxone (NARCAN) 0.4 mg/mL injection 0.4 mg 0.4 mg Intravenous Q5 Min PRN Corbin Lamb TECHNICAL SUPPORT PROFESSIONAL naloxone (NARCAN) 0.4 mg/mL injection 0.4 mg 0.4 mg Intravenous Q5 Min PRN Corbindenise Lamb TECHNICAL SUPPORT PROFESSIONAL nicotine (NICODERM CQ) 21 MG/24HR patch 1 patch 1 patch Transdermal Daily Corbin Lamb TECHNICAL SUPPORT PROFESSIONAL 1 patch at 11/25/24 0930 ondansetron (ZOFRAN) injection 4 mg 4 mg Intravenous Q6H PRN Corbindenise Lamb TECHNICAL SUPPORT PROFESSIONAL 4 mg at 11/17/24 1639 PANTOprazole (PROTONIX) EC tablet 40 mg 40 mg Oral Daily Corbin Lamb, TECHNICAL SUPPORT PROFESSIONAL 40 mg at 11/25/24 0935 polyethylene glycol (miraLAx) packet 17 g 17 g Oral Daily Corbindenise Lamb TECHNICAL SUPPORT PROFESSIONAL 17 g at 11/25/24 0932 [Provider Held] pravastatin (PRAVACHOL) tablet 20 mg 20 mg Oral Daily Corbindenise Lamb, TECHNICAL SUPPORT PROFESSIONAL pregabalin (LYRICA) capsule 100 mg 100 mg Oral TID Corbindenise Lamb, TECHNICAL SUPPORT PROFESSIONAL 100 mg at 11/25/24 0935 senna-docusate (SENNA-S) 8.6-50 MG tablet 2 tablet 2 tablet Oral BID Corbindenise Lamb, TECHNICAL SUPPORT PROFESSIONAL 2 tablet at 11/25/24 0936 thiamine mononitrate (VITAMIN B-1) tablet 200 mg 200 mg Oral Daily Corbindenise Lamb, TECHNICAL SUPPORT PROFESSIONAL 200 mg at11/25/24 0934 Physical Exam: Vitals: [...] S/p Left BKA with ampushield and stump 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 Plan of Care Patient's plan [...] Sanchez MD - 11/24/2024 3:[address] [facility] MED[facility] PROGRESS NOTE Assessment & Plan [...] while on IV antibiotics. Fax results to [phone] 4. Patient will need to be scheduled [...] again today. Upon arrival he had a service desk team lead in the room with him.Waited outside for 20 minutes before moving on to other patients. Will attempt to meet with patientagain later this week to review stoplight previously provided. * Ena Mtz MD - 11/24/2024 11:24 AM EST Images from the original note were not included. [facility] INFECTIOUS DISEASE Consult progress Note Name: Blas [...] while on IV antibiotics. Fax results to [phone] 4. Patient will need to be scheduled for repeat TATIANNA end of November. Patient would like to get this done at [facility] He can follow-up with me on [...] Ena Mtz MD, FACP, CWSP [facility] Diseases Available via [employer] SUBJECTIVE Remains in the hospital awaiting placement [...] not compromised. This report was generated using [employer] Speaking dictation software. Although every attempt has been made by the provider to proofread this document, occasional misspellings and typographical errors may still be present. * Gianluca Calles MD - 11/23/2024 3:[address] [facility] MEDIC[facility] PROGRESS NOTE Assessment & Plan [...] MD 11/23/2024 3:06 PM * Milan Vale, PICKLING OPERATOR - 11/23/2024 2:03 PM EST Physical Therapy [...] level of independence with functional mobility. Current [facility] Basic Mobility Score: (P) 18 Rehab Plan [...] get their dollars ready Flowsheet Data 11/23/24 1823 Physical Therapy Time and Intention PT Follow-Up Visit follow up treatment Mode of Treatment physical therapy Patient Effort good Symptoms Noted During/After Treatment none General Information Patient Profile Reviewed yes Patient/Family/Caregiver Comments/Observations tell the ladies to get their dollars ready General Observations of Patient Pt up in chair upon arrival, RN in room. Ampushield and actuarial director inplace. Both agreeable for tx Existing Precautions/Restrictions [...] Progressive Mobility Progressive Mobility Level Achieved Ambulation [facility] Basic Mobility Turning from your back to [...] Climbing 3-5 steps with a railing? 1 [facility] Basic Mobility Score 18 Therapy Assessment/Plan (PT) [...] c/w Jardiance - regarding the question of nursing home PICC for Abx, patient high risk for PICC and proline placed instead on 11/19/24 - Patient should follow up with his outpatient contribution solicitor on discharge and get repeat lab work [...] found for: TACROLIMUS No results found for: [id number] , TOTVOL , CRCLR , PERIOD No [...] Sign: Isabel Lee PA-C 11/23/2024 7:24 AM [facility] Nephrology Office [phone] Associated attestation - Anmol Reynoso MD - [...] - Patient can follow-up with his outpatient contribution solicitor upon discharge. Sign: Anmol Reynoso MD 11/23/2024 2:54 PM * Luz Escobedo RN - 11/22/2024 2:40 PM EST Attached media from the original note were not included. Micra AV leadless Pacemaker evaluation completed on 0. Per patient request and verbal order SharronSHUBHAM Pitts: LRL increased from 50 bpm to 60 bpm. Presenting rhythm: AM/FILLING LAYER UP @ 62 bpm. Underlying rhythm: CHB. AM/FILLING LAYER UP pacing 81%, with total V-pacing 100%. Battery and testing results evaluated and within normal limits. Normal leadless pacemaker function. JOSUE Alvarenga * Gianluca Calles MD - 11/22/2024 12:[address] [facility] MED[facility] PROGRESS NOTE Assessment & Plan [...] level of independence with self-care tasks. Current [facility] Daily Activity Score: 16 Precautions/Restrictions: aspiration, fall, [...] Progressive Mobility Progressive Mobility Level Achieved Ambulation [facility] Daily Activity Putting on and taking off Lower Body Clothing? 3 Bathing (including washing/rinsing/drying)? 2 Toileting (includes using toilet, bedpan, or urinal)? 2 Putting on and taking off upper body clothing? 3 Taking care of personal grooming such as brushing teeth? 3 Eating meals? 3 [facility] Daily Activity Score 16 Progress Summary (OT) [...] c/w Jardiance - regarding the question of nursing home PICC for Abx, patient high risk [...] found for: TACROLIMUS No results found for: [id number] , TOTVOL , CRCLR , PERIOD No [...] Sign: Anmol Reynoso MD 11/22/2024 9:34 AM [facility] Nephrology Office [phone] * Roberto Carranza PTA - 11/22/2024 8:46 [...] level of independence with functional mobility. Current [facility] Basic Mobility Score: 16 Rehab Plan of [...] is feeling better today. Flowsheet Data 11/22/24 0807 Physical Therapy Time and Intention PT Follow-Up [...] Progressive Mobility Level Achieved Transferring to Chair [facility] Basic Mobility Turning from your back to [...] Climbing 3-5 steps with a railing? 1 [facility] Basic Mobility Score 16 Therapy Assessment/Plan (PT) [...] Sign: Roberto Carranza PTA * Gema Jane, TECHNICAL SUPPORT PROFESSIONAL - 11/22/2024 8:18 AM EST Images from the original note were not included. 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 Recommend transesophageal echocardiogram if clinically indicated. Brain MRI 11/12/2024 No acute intracranial findings or suspicious intracranial lesions. No septic emboli. All additional appropriate imaging studies within the past 24 hours reviewed - images reviewed and independently interpreted. Sign Gema Jane APRN [facility] [place] 11/22/2024 8:19 AM * Jose Adair MD [...] found for: TACROLIMUS No results found for: [id number] , TOTVOL , CRCLR , PERIOD No results found for: IRON , TIBC , IRONSAT , UIBC Lab Results Component Value Date BILITOT 0.2 11/17/2024 AST 24 11/17/2024 Sign: Jose Adair MD 11/21/2024 2:23 PM * Gianluca Calles MD - 11/21/2024 12:[address] [facility] PROGRESS NOTE Assessment & Plan [...] Calles MD - 11/20/2024 11:[address] [facility] PROGRESS NOTE Assessment & Plan [...] found for: TACROLIMUS No results found for: [id number] , TOTVOL , CRCLR , PERIOD No results found for: IRON , TIBC , IRONSAT , UIBC Lab Results Component Value Date BILITOT 0.2 11/17/2024 AST 24 11/17/2024 Signed: Elsy Coronel APRN 11/20/2024 9:23 AM Associated attestation - Jose Adair MD - 11/20/2024 6:31 PM EST ATTESTATION: This encounter was done in conjunction with [facility] [employer]. I provided the substantive portion of thevisit [...] Calles MD - 11/19/2024 2:[address] [facility] PROGRESS NOTE Assessment & Plan [...] from the original note were not included. [facility] INFECTIOUS DISEASE Consult progress Note Name: Blas [...] while on IV antibiotics. Fax results to [phone] 4. Patient will need to be scheduled for repeat TATIANNA end of November Patient would like to follow-up with infectious disease close to home. I have communicated with Dr. Saritha Coffey office (infectious disease) at [phone]. She stated that this patient is very complicated for [facility] and she will not be following this patient He can follow-up with me in my office in 3 to 4 weeks. I would recommend that he be scheduled for repeat TATIANNA end november at here at [facility] Current antibiotic/day of therapy: Anti-infectives (From [...] 0849 Sign Ena Mtz MD, FACP, CWSP [facility] Infectious Diseases Available via [employer] SUBJECTIVE Afebrile, status post AICD extraction CURRENT [...] care and coordination of care with his [id number] infectious disease physician and office Of note, some information is being carried forward from prior records for informational purposes only and is being cited so that efficiency, safety and quality of this patient's care is not compromised. This report was generated using [employer] Speaking dictation software. Although every attempt has [...] left stoplight for his review and will iliamna back next week to review with the patient. * Valencia Lau, TECHNICAL SUPPORT PROFESSIONAL - 11/19/2024 8:02 AM EST Images from the original note were not included. 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: [facility] Assessment & Plan Assessment 63 year old male with hypertension, hyperlipidemia, diabetes, CKD stage III, peripheral artery disease, diabetes, foot infection with osteomyelitis, complete heart block s/p dual chamber pacemaker [id number], atrial fibrillation s/p multiple ablations and cardioversions [...] injection 5,000 Units On hold since Fri11/16/2024 [id number] until manually unheld; held by Herberth Whitmore [...] by 8 bpm Confirmed by MD Claude, [facility] ([id number]) on 11/07/2024 6:25:53 PM TATIANNA [...] Compared to previous outside study report from [facility] on 08/05/2024, Mitral and tricuspid regurgitation were not previously reported. Recommend transesophageal echocardiogram if clinically indicated. Brain MRI 11/12/2024 No acute intracranial findings or suspicious intracranial lesions. No septic emboli. All additional appropriate imaging studies within the past 24 hours reviewed - images reviewed and independently interpreted. Sign Valencia Lau APRN [facility] [place] 11/19/2024 8:54 AM * Lela Amor MD [...] interrogation ordered for post- OP. Presenting rhythm: AM-FILLING LAYER UP @ 69 bpm. Underlying rhythm: No ventricular response greater than 40 bpm. AM-FILLING LAYER UP @ 84.8%. Battery and device parameters evaluated [...] following is my assessment: Reason For Order: [employer] Burnisher Orders Ordered Cardiac monitoring / telemetry Until discontinued Question Answer Comment Clinical Indications For Cardiac Monitoring Cardiac (Rhythm Related) Rhythm related indications Post EP Procedure (Ablation, PPM, ICD) 11/17/24 5487 Cardiac monitoring / telemetry Until discontinued Question: Clinical Indications For Cardiac Monitoring Answer: Critical Care/NICU/PACU 11/07/24 1209 Events Noted in the Last 24 hrs: none Lela Amor MD 11/18/2024 12:12 PM * Aditi Jones PA-C - 11/18/2024 10:45 AM EST PHYSICAL MEDICINE & REHABILITATION CONSULT FOLLOW-UP NOTE Patients Name: Blas Genao : 1960 MR Number: [id number] Reason for Consultation: Rehabilitation potential Date of [...] support, tolerance to therapy and plan for fpc antibiotics. Will follow progress with therapy. Sleep: [...] tablet 975 mg 975 mg Oral Q6H [facility] Corbin Lamb TECHNICAL SUPPORT PROFESSIONAL 975 mg at 026 acetaminophen (TYLENOL) tablet 975 mg 975 mg Oral Q6H PRN Corbin Lamb TECHNICAL SUPPORT PROFESSIONAL amiODARONE (PACERONE) tablet 200 mg 200 mg Oral Daily Corbin Lamb TECHNICAL SUPPORT PROFESSIONAL 200 mg at 11/18/24 1030 amLODIPine (NORVASC) tablet 10 mg 10 mg Oral Daily Corbin Adonis, TECHNICAL SUPPORT PROFESSIONAL 10 mg at 11/18/24 1029 benzocaine-menthol (CHLORASEPTIC) 6-10 MG lozenge 1 lozenge 1 lozenge Mouth/Throat Q2H PRN Baldomero Hinds TECHNICAL SUPPORT PROFESSIONAL bisacodyl (DULCOLAX) suppository 10 mg 10 mg Rectal Daily PRN Corbin Lamb APRN bumetanide (BUMEX) injection 1 mg 1 mg Intravenous Q24H Corbin Lamb TECHNICAL SUPPORT PROFESSIONAL 1 mg at 11/18/24 1103 buPROPion (WELLBUTRIN SR) 12 hr tablet 150 mg 150 mg Oral BID Corbin Lamb TECHNICAL SUPPORT PROFESSIONAL 150 mg at 11/18/24 1028 calcium carbonate (TUMS) chewable tablet 1,000 mg 1,000 mg Oral Q12H PRN Corbin Lamb TECHNICAL SUPPORT PROFESSIONAL calcium citrate (CALCITRATE) tablet 950 mg 950 mg Oral BID with meals Coribn Lamb TECHNICAL SUPPORT PROFESSIONAL 950 mgat 11/18/24 1105 carboxymethylcellulose (REFRESH PLUS) [...] Units 2,000 Units Oral Daily Corbin Lamb, TECHNICAL SUPPORT PROFESSIONAL 2,000 Units at 11/18/24 1103 cyanocobalamin (VITAMIN B-12) tablet 2,500 mcg 2,500 mcg Oral Daily Corbin Lamb TECHNICAL SUPPORT PROFESSIONAL 2,500 mcg at 11/18/24 1027 DAPTOmycin (CUBICIN) 975 mg in sodium chloride (NS) 0.9 % 50 mL IVPB 10 mg/kg (Adjusted) Intravenous Q24H Corbin Lamb TECHNICAL SUPPORT PROFESSIONAL 0 mL/hr at 11/16/24 1712 975 mg at 11/17/24 1420 donepezil (ARICEPT) tablet 10 mg 10 mg Oral QAM Corbin Lamb TECHNICAL SUPPORT PROFESSIONAL 10 mg at 11/18/24 1105 [Provider Held] empagliflozin (JARDIANCE) 25 mg 25 mg Oral Daily Corbin Lamb TECHNICAL SUPPORT PROFESSIONAL 25 mg at 11/04/24 0756 folic acid (FOLVITE) tablet 1 mg 1 mg Oral Daily Corbin Lamb TECHNICAL SUPPORT PROFESSIONAL 1 mg at 11/18/24 1028 [Provider Held] glimepiride (AMARYL) tablet 2 mg 2 mg Oral Daily with breakfast Corbin Lamb TECHNICAL SUPPORT PROFESSIONAL 2 mg at 11/04/24 0757 [Provider Held] heparin (porcine) 5000 unit/mL injection 5,000 Units 5,000 Units Subcutaneous Q8H [facility] Corbin Lamb, TECHNICAL SUPPORT PROFESSIONAL 5,000 Units at 11/16/24 1714 HYDROmorphone (DILAUDID) tablet 2 mg 2 mg Oral Q3H PRN Corbin Lamb TECHNICAL SUPPORT PROFESSIONAL 2 mg at 11/18/24 1030 HYDROmorphone (DILAUDID) tablet 4 mg 4 mg Oral Q3H PRN Corbin Lamb TECHNICAL SUPPORT PROFESSIONAL 4 mg at 11/16/24 2213 insulin glargine (LANtus/SEMGLEE) 100 units/mL injection 10 Units 10 Units Subcutaneous Daily Corbin Lamb TECHNICAL SUPPORT PROFESSIONAL 10 Units at 11/18/24 1032 insulin lispro (HumaLOG/ADMELOG) 100 units/mL injection 1-6 Units 1-6 Units Subcutaneous TID with meals Corbin Lamb TECHNICAL SUPPORT PROFESSIONAL 3 Units at 11/18/24 1232 insulin lispro (HumaLOG/ADMELOG) 100 units/mL injection 3 Units 3 Units Subcutaneous TID with mealsCorbin Lamb TECHNICAL SUPPORT PROFESSIONAL 3 Units at 11/18/24 1232 ipratropium-albuterol (DUONEB) 0.5-2.5 mg/3 mL nebulizer solution 3 mL 3 mL Nebulization Q2H PRN Corbin Lamb, TECHNICAL SUPPORT PROFESSIONAL 3 mL at 11/07/24 1025 lactulose (ENULOSE) 10 gm/15 mL solution 20 g 20 g Oral Q4H PRN Corbin Lamb TECHNICAL SUPPORT PROFESSIONAL melatonin tablet 3 mg 3 mg Oral Nightly PRN Corbin Lamb TECHNICAL SUPPORT PROFESSIONAL 3 mg at 11/16/24 2215 methocarbamol (ROBAXIN) tablet 1,000 mg 1,000 mg Oral 4x Daily Corbin Lamb, TECHNICAL SUPPORT PROFESSIONAL 1,000 mg at 11/18/24 1105 metoPROLOL TARTRATE (LOPRESSOR) tablet 50 mg 50 mg Oral BID Corbin Lamb, TECHNICAL SUPPORT PROFESSIONAL 50 mg at 11/18/24 1031 multivitamin with minerals tablet 1 tablet 1 tablet Oral Daily Cobrin Lamb, TECHNICAL SUPPORT PROFESSIONAL 1 tablet at 11/18/24 1028 naloxone (NARCAN) 0.4 mg/mL injection 0.4 mg 0.4 mg Intravenous Q5 Min PRN Corbin Adonis, TECHNICAL SUPPORT PROFESSIONAL naloxone (NARCAN) 0.4 mg/mL injection 0.4 mg 0.4 mg Intravenous Q5 Min PRN Corbin Adonis, TECHNICAL SUPPORT PROFESSIONAL nicotine (NICODERM CQ) 21 MG/24HR patch 1 patch 1 patch Transdermal Daily Corbin Adonis, TECHNICAL SUPPORT PROFESSIONAL 1 patch at 11/18/24 1030 ondansetron (ZOFRAN) injection 4 mg 4 mg Intravenous Q6H PRN Corbin Adonis, TECHNICAL SUPPORT PROFESSIONAL 4 mg at 11/17/24 1639 PANTOprazole (PROTONIX) EC tablet 40 mg 40 mg Oral Daily Corbin Adonis, TECHNICAL SUPPORT PROFESSIONAL 40 mg at 11/18/24 1029 polyethylene glycol (miraLAx) packet 17 g 17 g Oral Daily Corbin Adonis, TECHNICAL SUPPORT PROFESSIONAL 17 g at 11/18/24 1040 [Provider Held] pravastatin (PRAVACHOL) tablet 20 mg 20 mg Oral Daily Corbin Adonis, TECHNICAL SUPPORT PROFESSIONAL pregabalin (LYRICA) capsule 100 mg 100 mg Oral TID Corbin Adonis, TECHNICAL SUPPORT PROFESSIONAL 100 mg at 11/18/24 1105 senna-docusate (SENNA-S) 8.6-50 MG tablet 2 tablet 2 tablet Oral BID Corbin Adonis, TECHNICAL SUPPORT PROFESSIONAL 2 tablet at 11/18/24 1032 thiamine mononitrate (VITAMIN B-1) tablet 200 mg 200 mg Oral Daily Corbin Adonis, TECHNICAL SUPPORT PROFESSIONAL 200 mg at11/18/24 1031 Physical Exam: Vitals: [...] S/p Left BKA with ampushield and stump 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 Presenting rhythm: AM-FILLING LAYER UP @ 69 bpm. Underlying rhythm: No ventricular response greater than 40 bpm. AM-FILLING LAYER UP @ 84.8%. Battery and device parameters evaluated [...] from the original note were not included. [facility] INFECTIOUS DISEASE Consult progress Note Name: Blas [...] try to reach Dr. Saritha Coffey at [facility] tomorrow Current antibiotic/day of therapy: Anti-infectives [...] 0849 Sign Ena Mtz MD, FACP, CWSP [facility] Infectious Diseases Available via [employer] SUBJECTIVE Afebrile, status post AICD extraction CURRENT [...] not compromised. This report was generated using [email or web address] Naturally Speaking dictation software. Although every attempt has been made by the provider to proofread this document, occasional misspellings and typographical errors may still be present. * Valencia Lau APRN - 11/18/2024 8:48 AM EST Images from the original note were not included. 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: [facility] Assessment & Plan Assessment 63 year old male with hypertension, hyperlipidemia, diabetes, CKD stage III, peripheral artery disease, diabetes, foot infection with osteomyelitis, complete heart block s/p dual chamber pacemaker [id number], atrial fibrillation s/p multiple ablations and cardioversions [...] injection 5,000 Units On hold since Fri11/16/2024 [id number] until manually unheld; held by Herberth Whitmore [...] by 8 bpm Confirmed by MD Claude, [facility] ([id number]) on 11/07/2024 6:25:53 PM TATIANNA [...] Compared to previous outside study report from [facility] on 08/05/2024, Mitral and tricuspid regurgitation were not previously reported. Recommend transesophageal echocardiogram if clinically indicated. Brain MRI 11/12/2024 No acute intracranial findings or suspicious intracranial lesions. No septic emboli. All additional appropriate imaging studies within the past 24 hours reviewed - images reviewed and independently interpreted. Sign Valencia Lau APRN [facility] [place] 11/18/2024 8:48 AM * Cristina Rodriguez APRN [...] Department Center 12/07/2024 1:30 PM ROOM, ICD/PACER/LOOP [facility] Current Facility-Administered Medications: acetaminophen (TYLENOL) tablet 975 mg, 975 mg, Oral, Q6H JUDSON, Corbin Adonis, TECHNICAL SUPPORT PROFESSIONAL, 650 mg at 11/18/24 0305 acetaminophen (TYLENOL) tablet 975 mg, 975 mg, Oral, Q6H PRN, Corbin Adonis, TECHNICAL SUPPORT PROFESSIONAL amiODARONE (PACERONE) tablet 200 mg, 200 mg, Oral, Daily, Corbin Adonis, TECHNICAL SUPPORT PROFESSIONAL, 200 mg at 11/17/24 0813 amLODIPine (NORVASC) tablet 10 mg, 10 mg, Oral, Daily, Corbin Adonis, TECHNICAL SUPPORT PROFESSIONAL, 10 mg at 11/17/24 0816 benzocaine-menthol (CHLORASEPTIC) 6-10 MG lozenge 1 lozenge, 1 lozenge, Mouth/Throat, Q2H PRN, Gretel Hinds, TECHNICAL SUPPORT PROFESSIONAL bisacodyl (DULCOLAX) suppository 10 mg, 10 mg, Rectal, Daily PRN, Corbin Lamb, TECHNICAL SUPPORT PROFESSIONAL bumetanide (BUMEX) injection 1 mg, 1 mg, Intravenous, Q24H, Corbin Lamb, TECHNICAL SUPPORT PROFESSIONAL, 1 mg at 11/17/24 0813 buPROPion (WELLBUTRIN SR) 12 hr tablet 150 mg, 150 mg, Oral, BID, Corbin Adonis, TECHNICAL SUPPORT PROFESSIONAL, 150 mg at11/17/24 2125 calcium carbonate (TUMS) chewable tablet 1,000 mg, 1,000 mg, Oral, Q12H PRN, Corbin Lamb, TECHNICAL SUPPORT PROFESSIONAL calcium citrate (CALCITRATE) tablet 950 mg, 950 mg, Oral, BID with meals, Corbin Adonis, TECHNICAL SUPPORT PROFESSIONAL, 950 mg at 11/17/24 0813 carboxymethylcellulose (REFRESH PLUS) 0.5 % ophthalmic solution 2 drop, 2 drop, Each Eye, Q2H PRN, Gretel Hinds, TECHNICAL SUPPORT PROFESSIONAL chlorhexidine gluconate 2 % wipes - urethral catheter CHG application, , Topical, Daily, Corbin Lamb, TECHNICAL SUPPORT PROFESSIONAL cholecalciferol tablet 2,000 Units, 2,000 Units, Oral, Daily, Corbin Adonis, TECHNICAL SUPPORT PROFESSIONAL, 2,000 Units at 11/17/24 0815 cyanocobalamin (VITAMIN B-12) tablet 2,500 mcg, 2,500 mcg, Oral, Daily, Corbin Adonis, TECHNICAL SUPPORT PROFESSIONAL, 2,500 mcg at 11/17/24 0814 DAPTOmycin (CUBICIN) 975 mg in sodium chloride (NS) 0.9 % 50 mL IVPB, 10 mg/kg (Adjusted), Intravenous, Q24H, Corbin Lamb, TECHNICAL SUPPORT PROFESSIONAL, Last Rate: 0 mL/hr at 11/16/24 1712, 975 mg at 11/17/24 1420 donepezil (ARICEPT) tablet 10 mg, 10 mg, Oral, QAM, Corbin Adonis, TECHNICAL SUPPORT PROFESSIONAL, 10 mg at 11/17/24 0816 [Provider Held] empagliflozin (JARDIANCE) 25 mg, 25 mg, Oral, Daily, Corbin Adonis, TECHNICAL SUPPORT PROFESSIONAL, 25 mg at 11/04/24 0756 folic acid (FOLVITE) tablet 1 mg, 1 mg, Oral, Daily, Corbin Adonis, TECHNICAL SUPPORT PROFESSIONAL, 1 mg at 11/17/24 0813 [Provider Held] glimepiride (AMARYL) tablet 2 mg, 2 mg, Oral, Daily with breakfast, Corbin Lamb, TECHNICAL SUPPORT PROFESSIONAL, 2 mg at 11/04/24 0757 [Provider Held] heparin (porcine) 5000 unit/mL injection 5,000 Units, 5,000 Units, Subcutaneous, Q8H JUDSON, Corbindenise Lamb, TECHNICAL SUPPORT PROFESSIONAL, 5,000 Units at 11/16/24 1714 HYDROmorphone (DILAUDID) tablet 2 mg, 2 mg, Oral, Q3H PRN, Corbin Adonis, TECHNICAL SUPPORT PROFESSIONAL, 2 mg at 540 HYDROmorphone (DILAUDID) tablet 4 mg, 4 mg, Oral, Q3H PRN, Corbin Adonis, TECHNICAL SUPPORT PROFESSIONAL, 4 mg at 213 insulin glargine (LANtus/SEMGLEE) 100 units/mL injection 10 Units, 10 Units, Subcutaneous, Daily, Corbin Lamb, TECHNICAL SUPPORT PROFESSIONAL insulin lispro (HumaLOG/ADMELOG) 100 units/mL injection 1-6 Units, 1-6 Units, Subcutaneous, TID with meals, Corbin Adonis, TECHNICAL SUPPORT PROFESSIONAL, 1 Units at 11/17/24 1856 insulin lispro (HumaLOG/ADMELOG) 100 units/mL injection 3 Units, 3 Units, Subcutaneous, TID with meals, Corbin Lamb TECHNICAL SUPPORT PROFESSIONAL, 3 Units at 11/17/24 1213 ipratropium-albuterol (DUONEB) 0.5-2.5 mg/3 mL nebulizer solution 3 mL, 3 mL, Nebulization, Q2H PRN, Corbin Lamb, TECHNICAL SUPPORT PROFESSIONAL, 3 mL at 11/07/24 1025 lactulose (ENULOSE) 10 gm/15 mL solution 20 g, 20 g, Oral, Q4H PRN, Corbin Lealese, TECHNICAL SUPPORT PROFESSIONAL melatonin tablet 3 mg, 3 mg, Oral, Nightly PRN, Corbin Adonis, TECHNICAL SUPPORT PROFESSIONAL, 3 mg at 11/16/242214 methocarbamol (ROBAXIN) tablet 1,000 mg, 1,000 mg, Oral, 4x Daily, Corbin Adonis, TECHNICAL SUPPORT PROFESSIONAL, 1,000 mgat 11/17/242125 metoPROLOL TARTRATE (LOPRESSOR) tablet 50 mg, 50 mg, Oral, BID, Corbin Adonis, TECHNICAL SUPPORT PROFESSIONAL, 50 mg at 11/17/242123 multivitamin with minerals tablet 1 tablet, 1 tablet, Oral, Daily, Corbin Adonis, TECHNICAL SUPPORT PROFESSIONAL, 1 tabletat 11/17/24 0816 naloxone (NARCAN) 0.4 mg/mL injection 0.4 mg, 0.4 mg, Intravenous, Q5 Min PRN, Corbin Adonis, TECHNICAL SUPPORT PROFESSIONAL naloxone (NARCAN) 0.4 mg/mL injection 0.4 mg, 0.4 mg, Intravenous, Q5 Min PRN, Corbin Adonis, TECHNICAL SUPPORT PROFESSIONAL nicotine (NICODERM CQ) 21 MG/24HR patch 1 patch, 1 patch, Transdermal, Daily, Corbin Adonis, TECHNICAL SUPPORT PROFESSIONAL, 1 patch at 11/17/24 0816 ondansetron (ZOFRAN) injection 4 mg, 4 mg, Intravenous, Q6H PRN, Corbin Adonis, TECHNICAL SUPPORT PROFESSIONAL, 4 mg at 11/17/24 1639 PANTOprazole (PROTONIX) EC tablet 40 mg, 40 mg, Oral, Daily, Corbin Adonis, TECHNICAL SUPPORT PROFESSIONAL, 40 mg at 11/17/24 0815 polyethylene glycol (miraLAx) packet 17 g, 17 g, Oral, Daily, Corbin Adonis, TECHNICAL SUPPORT PROFESSIONAL, 17 g at 11/17/24 1212 [Provider Held] pravastatin (PRAVACHOL) tablet 20 mg, 20 mg, Oral, Daily, Corbin Adonis, TECHNICAL SUPPORT PROFESSIONAL pregabalin (LYRICA) capsule 100 mg, 100 mg, Oral, TID, Corbin Adonis, TECHNICAL SUPPORT PROFESSIONAL, 100 mg at 11/17/242123 senna-docusate (SENNA-S) 8.6-50 MG tablet 2 tablet, 2 tablet, Oral, BID, Cobrin Adonis, TECHNICAL SUPPORT PROFESSIONAL, 2 tablet at 11/17/242124 thiamine mononitrate (VITAMIN B-1) tablet 200 mg, 200 mg, Oral, Daily, Corbin Adonis, TECHNICAL SUPPORT PROFESSIONAL, 200 mg at 11/17/24 0814 Vitals: 11/18/24 [...] (218 lb 11.1 oz) Height: Cristina Rodriguez, TECHNICAL SUPPORT PROFESSIONAL 11/18/24 9:18 AM Addendum: From an EP perspective, he can re-start his Eliquis today. Cristina Gomezneal, SHUBHAM 11/18/24 9:19 AM * Sri Pena RN - 11/18/2024 8:25 AM EST Attached media from the original note were not included. Pacemaker evaluation completed on B10E, device interrogation ordered for post- OP. Presenting rhythm: AM-FILLING LAYER UP @ 69 bpm. Underlying rhythm: No ventricular response greater than 40 bpm. AM-FILLING LAYER UP @ 84.8%. Battery and device parameters evaluated [...] level of independence with self-care tasks. Current [facility] Daily Activity Score: 16 Precautions/Restrictions: fall, aspiration, pacemaker, isolation: contact, weight bearing (NWBing to L residual limb with actuarial director and nutmeggar in place, skin) Rehab Plan [...] bearing (NWBing to L residual limb with actuarial director and nutmeggar in place, skin) Pain Assessment [...] Progressive Mobility Level Achieved Edge of Bed [facility] Daily Activity Putting on and taking off Lower Body Clothing? 3 Bathing (including washing/rinsing/drying)? 2 Toileting (includes using toilet, bedpan, or urinal)? 2 Putting on and taking off upper body clothing? 3 Taking care of personal grooming such as brushing teeth? 3 Eating meals? 3 [facility] Daily Activity Score 16 Therapy Assessment/Plan (OT) [...] OT) goal ongoing Bathing Goal 1 (OT) [place] Level/Cues Needed (Bathing Goal 1, OT) minimum [...] Frame (Dressing Goal 1, OT) 1 week [place]/Cues Needed (Dressing Goal 1, OT) minimum assist (75% or more patient effort) Toileting Goal 1 (OT) Activity/Device (Toileting Goal 1, OT) toileting skills, all Progress/Outcome (Toileting Goal 1, OT) goal revised this date Time Frame (Toileting Goal 1, OT) 1 week [place] Level/Cues Needed (Toileting Goal 1, OT) minimum assist (75% or more patient effort) Sign: Katy Rodgers OT * Valencia Lau APRN - 11/17/2024 10:51 AM EST Images from the original note were not included. 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 Underlying rhythm: SB @ [...] by 8 bpm Confirmed by MD Claude, [facility] ([id number]) on 11/07/2024 6:25:53 PM TATIANNA [...] Compared to previous outside study report from [facility] on 08/05/2024, Mitral and tricuspid regurgitation were not previously reported. Recommend transesophageal echocardiogram if clinically indicated. Brain MRI 11/12/2024 No acute intracranial findings or suspicious intracranial lesions. No septic emboli. All additional appropriate imaging studies within the past 24 hours reviewed - images reviewed and independently interpreted. Sign Valencia Lau APRN [facility] [place] 11/17/2024 10:51 AM Associated attestation - Devon [...] Powers MD - 11/17/2024 10:[address] [facility] MEDICINE PROGRESS NOTE Assessment & Plan [...] 11/17/2024 10:06 AM * Roberto Blanca Dillon, PICKLING OPERATOR - 11/17/2024 9:36 AM EST Physical Therapy Progress Note Precautions/Restrictions: fall, aspiration, other (see comments) (Skin) Assessment Summary: Patient seen for PT follow up. L residual limb actuarial director and nutmegger donned. Performed bed mobility and [...] level of independence with functional mobility. Current [facility] Basic Mobility Score: 16 Rehab Plan of [...] Progressive Mobility Level Achieved Transferring to Chair [facility] Basic Mobility Turning from your back to [...] Climbing 3-5 steps with a railing? 1 [facility] Basic Mobility Score 16 Therapy Assessment/Plan (PT) [...] ongoing Sign: Roberto Carranza PTA * Ena tMz MD - 11/17/2024 9:05 AM EST Images from the original note were not included. [facility] INFECTIOUS DISEASE Consult progress Note Name: Blas [...] 0849 Sign Ena Mtz MD, FACP, CWSP [facility] Infectious Diseases Available via [employer] SUBJECTIVE Afebrile. No new complaints Feels better. [...] not compromised. This report was generated using [employer] Speaking dictation software. Although every attempt has [...] were not included. Coverage for Dr. Mtz [facility] ID Progress Note Name: Blas Geano Age: 63 y.o. Sex: male ASSESSMENT & [...] Soft, nontender Extremities: Left BKA stump with actuarial director garment, and ampul sheIld LABORATORY AND DIAGNOSTIC [...] was performed in office at [facility] and images reviewed by orthopedic provider. [...] not compromised This report was generated using [employer] dictation software. Although every attempt has been made by the provider to proofread this document, occasional misspellings and typographical errors Sign Chris Taylor MD, [facility] Infectious Diseases Available via [employer]oof 11/16/2024 11:27 AM * Maddison Villalpando MD - 11/15/2024 5:[address] [facility] MEDICINE PROGRESS NOTE Assessment & Plan [...] were not included. Coverage for Dr. Mtz [facility] ID Progress Note Name: Blas Genao Age: [...] faecium -10/27: Left foot wound culture at [facility]: MRSA, Enterococcus faecalis, VRE, Corynebacterium species and [...] was performed in office at [facility] and images reviewed by orthopedic provider. [...] injection 5,000 Units 5,000 Units Subcutaneous Q8H [facility] Luis Degroot MD 5,000 Units [...] not compromised This report was generated using [employer] Speaking dictation software. Although every attempt has been made by the provider to proofread this document, occasional misspellings and typographical errors Sign Chris Taylor MD, [facility] Infectious Diseases Available via [employer] 11/15/2024 1:10 PM * Devon Lazo MD - 11/15/2024 1:00 PM EST Images from the original note were not included. 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 Sign Devon Lazo MD [facility] [place] 11/15/2024 1:00 PM * Elida Berger OT [...] Patient is highly motivated to return to [facility] and reports good family support and DME. Pt is an excellent rehab candidate and will benefit from3 hours of intensive daily therapy with the potential to return home and reintegrate back into the [facility]. Progress Towards Goals: progress toward functional goals is good Outcome Measures: The Activity Measure for Post-Acute Care (AM-PAC) Daily Activity Inpatient Short Form (6-clicks) zakiya standardized measure used to quantify deficits in self-care. The total score of the measure ranges from 6-24. A higher score indicates a higher level of independence with self-care tasks. Current [facility] Daily Activity Score: 17 Precautions/Restrictions: fall, other [...] Progressive Mobility Level Achieved Transferring to Chair [facility] Daily Activity Putting on and taking off Lower Body Clothing? 3 Bathing (including washing/rinsing/drying)? 2 Toileting (includes using toilet, bedpan, or urinal)? 2 Putting on and taking off upper body clothing? 3 Taking care of personal grooming such as brushing teeth? 3 Eating meals? 4 [facility] Daily Activity Score 17 Therapy Assessment/Plan (OT) [...] Villalpando MD - 11/14/2024 2:[address] [facility] PROGRESS NOTE Assessment & Plan [...] Villalpando MD - 11/13/2024 3:[address] [facility] PROGRESS NOTE Assessment & Plan [...] from the original note were not included. 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 Underlying rhythm: SB @ [...] pain, dizziness, palpitations, syncope Objective: Telemetry Reviewed: FILLING LAYER UP 60 Last Vitals Pulse:63,Resp:18,BP:116/60,SpO2:96 %,Weight:120 kg (264 [...] Compared to previous outside study report from [facility] on 08/05/2024, Mitral and tricuspid regurgitation [...] Villalpando MD - 11/12/2024 4:[address] [facility] PROGRESS NOTE Assessment & Plan [...] Danielle MD - 11/12/2024 3:33 PM EST [facility] ID Progress Note Length of Stay: 10 [...] final timing Time spent on chart/literature review, [id number] discussion and exam with patient, and documentation: [...] Resolved Problems: Noemí Danielle MD Available on Trippeo 11/12/2024 3:33 PM * POOJA Allen - 11/12/2024 11:59 AM EST Images from the original note were not included. 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 Underlying rhythm: SB @ [...] No lightheadedness or dizziness. Objective: Telemetry Reviewed: FILLING LAYER UP 60 Last Vitals Pulse:67,Resp:18,BP:(!) 113/53,SpO2:(!) 91 %,Weight:120 [...] Compared to previous outside study report from [facility] on 08/05/2024, Mitral and tricuspid regurgitation [...] PM EST I agree with the pharmacy service associate note. * Elida Berger, OT - 11/12/2024 [...] Patient is highly motivated to return to [facility] and reports good family support and [...] level of independence with self-care tasks. Current [facility] Daily Activity Score: 16 Precautions/Restrictions: fall, isolation: [...] Progressive Mobility Level Achieved Transferring to Chair [facility] Daily Activity Putting on and taking off Lower Body Clothing? 2 Bathing (including washing/rinsing/drying)? 2 Toileting (includes using toilet, bedpan, or urinal)? 2 Putting on and taking off upper body clothing? 3 Taking care of personal grooming such as brushing teeth? 3 Eating meals? 4 [facility] Daily Activity Score 16 Therapy Assessment/Plan (OT) [...] ordered for function. Presenting rhythm: AP / FILLING LAYER UP @ 60 bpm. Underlying rhythm: SB @ [...] of 40-44% and patent foramina well with [id number] shunting and moderate to severe TR MRI [...] concerns validated and emotional support provided; nurse industrial maintenance manager made aware. Resources: Patient informed of the following resources and how to request it: Integrative Medicine Services available at [facility], including, Massage Therapy, and Reiki/Energy [...] were not included. Coverage for Dr. Mtz [facility] ID Progress Note Name: Blas Genao Age: [...] faecium -10/27: Left foot wound culture at [facility]: MRSA, Enterococcus faecalis, VRE, Corynebacterium species and [...] nontender Left BKA stump site covered in actuarial director garment and ampu sheild LABORATORY AND DIAGNOSTIC [...] was performed in office at [facility] and images reviewed by orthopedic provider. Any findings are documented within ambulatory encounter note on date of service. Current Medications: Current Facility-Administered Medications Medication Dose Route Frequency Provider Last Rate Last Admin acetaminophen (TYLENOL) tablet 975 mg 975 mg Oral Q6H [facility] Rafiq Chakraborty MD 975 mg [...] injection 1-6 Units 1-6 Units Subcutaneous Q4H [facility] POOJA Crews [Provider Held] insulin [...] not compromised This report was generated using [employer] Speaking dictation software. Although every attempt has been made by the provider to proofread this document, occasional misspellings and typographical errors Sign Chris Taylor MD, [facility] Infectious Diseases Available via [employer]oof 11/11/2024 10:52 AM * Olimpia Lainez, PharmD [...] 4 mg q3h PRN for severe pain ([id number]). 1x dose of liquid dilaudid 1mg given [...] Compared to previous outside study report from [facility] on 08/05/2024, Mitral and tricuspid regurgitation [...] Pulmonary, Critical Care, and Sleep Medicine [address], [address], [place] [address] Critical Care Progress Note Assessment & Plan [...] Compared to previous outside study report from [facility] on 08/05/2024, Mitral and tricuspid regurgitation [...] Case IDs Date Procedure Surgeon Location Status [id number] 11/05/24 LEFT BELOW KNEE AMPUTATION [place] Camejo [...] ruled out. This report was generated using [employer] Speaking dictation software. Although every attempt has [...] out/in endocarditis Plan -NWB, ampushield and stump actuarial director -Currently on ASA BID and subcutaneous heparin- [...] redressed with xeroform, abds and applied the actuarial director garment and ampu shield. Labs: Recent Labs [...] were not included. Coverage for Dr. Mtz [facility] ID Progress Note Name: Blas Genao Age: [...] faecium -10/27: Left foot wound culture at [facility]: MRSA, Enterococcus faecalis, VRE, Corynebacterium species and [...] was performed in office at [facility] and images reviewed by orthopedic provider. [...] not compromised This report was generated using [employer] Speaking dictation software. Although every attempt has been made by the provider to proofread this document, occasional misspellings and typographical errors Sign Chris Taylor MD, [facility] Infectious Diseases Available via [employer]oof 11/10/2024 11:34 AM * POOJA Jimenez - 11/10/2024 10:45 AM EST Images from the original note were not included. 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: [facility] Assessment & Plan 63 year old male with hypertension, hyperlipidemia, diabetes, CKD stage III, peripheral artery disease, diabetes, foot infection with osteomyelitis, complete heart block s/p dual chamber pacemaker [id number], atrial fibrillation s/p multiple ablations and cardioversions [...] abdomen much less distended Objective: Telemetry Reviewed: FILLING LAYER UP 60 Last Vitals Pulse:60,Resp:17,BP:130/60,SpO2:94 %,Weight:120 kg (264 [...] empagliflozin (JARDIANCE) 25 mg On hold since [facility] 11/04/2024 at 1503 until manually unheld; [...] Compared to previous outside study report from [facility] on 08/05/2024, Mitral and tricuspid regurgitation [...] NPO at midnight with plan for possible TTAIANNA today Assessment & Plan Assessment Patient is [...] Compared to previous outside study report from [facility] on 08/05/2024, Mitral and tricuspid regurgitation [...] (AMARYL) tablet 2 mg On hold since [facility] 11/04/2024 at 1503 until manually unheld; [...] of Pulmonary, Critical Care, and Sleep Medicine [address] [place] [address], [address], [place] [address] Critical Care Progress Note Assessment & Plan [...] Compared to previous outside study report from [facility] on 08/05/2024, Mitral and tricuspid regurgitation [...] unit or at the nursing station [facility] floor where the patient is located. My [...] Case IDs Date Procedure Surgeon Location Status [id number] 11/05/24 LEFT BELOW KNEE AMPUTATION Dallas Camejo [...] ruled out. This report was generated using [employer] dictation software. Although every attempt has been [...] were not included. Coverage for Dr. Mtz [facility] ID Progress Note Name: Blas Genao Age: [...] faecium -10/27: Left foot wound culture at [facility]: MRSA, Enterococcus faecalis, VRE, Corynebacterium species and [...] Soft nontender Left BKA stump site in actuarial director LABORATORY AND DIAGNOSTIC DATA: Lab and imaging [...] was performed in office at [facility] and images reviewed by orthopedic provider. [...] injection 5,000 Units 5,000 Units Subcutaneous Q8H [facility] Haven Bach APRN HYDROmorphone (DILAUDID) [...] not compromised This report was generated using [employer] dictation software. Although every attempt has been made by the provider to proofread this document, occasional misspellings and typographical errors Sign Chris Taylor MD, [facility] Infectious Diseases Available via [employer] 11/09/2024 11:55 AM * Deep Bales, PharmD [...] included. [facility] CARDIOLOGY PROGRESS NOTE Outpatient Mitering Machine Operator: Mitering Machine Operator at [facility] in [place] Assessment & Plan Assessment Blas Genao is [...] by 8 bpm Confirmed by MD Claude, [facility] ([id number]) on 11/07/2024 6:25:53 PM ECHO: [...] Compared to previous outside study report from [facility] on 08/05/2024, Mitral and tricuspid regurgitation were not previously reported. Recommend transesophageal echocardiogram if clinically indicated. All additional appropriate imaging studies within the past 24 hours reviewed - images reviewed and independently interpreted. Sign Gema Jane APRN [facility] [place] 11/09/2024 9:00 AM * Roberto Carranza PTA - 11/09/2024 8:40 AM EST Physical Therapy Progress Note Precautions/Restrictions: fall, isolation: contact, pacemaker, other (see comments) (NWB LLE; Skin) Assessment Summary: Patient seen for PT follow up. Performed bed mobility, transfers and sidesteps this session. Required Ax2 for mobility. Adjusted nutmegger for optimal fit and protection of residual limb. Per orders patient is to have actuarial director on AAT, noted that residual limb was wrapped with srinivas wrap vs actuarial director. Reached out to orthopedic PA in regards to actuarial director for patient. Patient is motivated to participate [...] level of independence with functional mobility. Current [facility] Basic Mobility Score: 14 Rehab Plan of [...] Progressive Mobility Progressive Mobility Level Achieved Standing [facility] Basic Mobility Turning from your back to [...] Climbing 3-5 steps with a railing? 1 [facility] Basic Mobility Score 14 Therapy Assessment/Plan (PT) [...] 1, PT) goal ongoing Sign: Roberto Carranza PICKLING OPERATOR Associated attestation - Abhinav Pope, PT - [...] level of independence with self-care tasks. Current [facility] Daily Activity Score: 15 Precautions/Restrictions: fall, isolation: [...] Progressive Mobility Level Achieved Edge of Bed [facility] Daily Activity Putting on and taking off Lower Body Clothing? 2 Bathing (including washing/rinsing/drying)? 2 Toileting (includes using toilet, bedpan, or urinal)? 1 Putting on and taking off upper body clothing? 3 Taking care of personal grooming such as brushing teeth? 3 Eating meals? 4 [facility] Daily Activity Score 15 Therapy Assessment/Plan (OT) [...] OT goal 1 Transfer Goal 1 (OT) [place] Level/Cues Needed (Transfer Goal 1, OT) minimum [...] Pulmonary, Critical Care, and Sleep Medicine [address], [address], [place] [address] Critical Care Progress Note Assessment & Plan [...] Compared to previous outside study report from [facility] on 08/05/2024, Mitral and tricuspid regurgitation [...] Level 0 Soto: Evaluation for removal of Osto was discussed today on rounds. If no [...] unit or at the nursing [facility] where the patient is located. My [...] Case IDs Date Procedure Surgeon Location Status [id number] 11/05/24 LEFT BELOW KNEE AMPUTATION Dallas Camejo [...] empagliflozin (JARDIANCE) 25 mg On hold since [facility] 11/04/2024 at 1503 until manually unheld; [...] ruled out. This report was generated using [employer] Speaking dictation software. Although every attempt has [...] were not included. Coverage for Dr. Mtz [facility] ID Progress Note Name: Blas Genao Age: [...] faecium -10/27: Left foot wound culture at [facility]: MRSA, Enterococcus faecalis, VRE, Corynebacterium species and [...] nontender Extremities: Left BKA site-> No drain. Bowling Ball Grader in place LABORATORY AND DIAGNOSTIC DATA: Lab [...] was performed in office at [facility] and images reviewed by orthopedic provider. [...] Tube Oral Q15 Min PRN Kayla Orona, TECHNICAL SUPPORT PROFESSIONAL Or dextrose 50 % solution 12.5 g 12.5 g Intravenous Q15 Min PRN Kayla Orona, TECHNICAL SUPPORT PROFESSIONAL Or dextrose 50 % solution 25 g 25 g Intravenous Q15 Min PRN Kayla Orona TECHNICAL SUPPORT PROFESSIONAL Or glucagon (GLUCAGEN) injection 1 mg 1 [...] not compromised This report was generated using [employer] Speaking dictation software. Although every attempt has been made by the provider to proofread this document, occasional misspellings and typographical errors Sign Chris Taylor MD, FIDSA, FACP [facility] Infectious Diseases Available via [employer] 11/08/2024 10:02 AM * Dallas Camejo MD - 11/08/2024 9:46 AM EST Blas's clinical progress and CP decompensation noted. Appreciate Medical management and CT recommendations. Drain out, wound clean, and Bowling Ball Grader in place. Will continue to follow. * Gema Dumont SHUBHAM Jane - 11/08/2024 9:38 AM EST Images from the original note were not included. EM[facility] VYAS CARDIOLOGY PROGRESS NOTE Outpatient Mitering Machine Operator: Mitering Machine Operator at [facility] in [place] Assessment & Plan Assessment Blas Genao is [...] by 8 bpm Confirmed by MD Claude, [facility] ([id number]) on 11/07/2024 6:25:53 PM ECHO: [...] Compared to previous outside study report from [facility] on 08/05/2024, Mitral and tricuspid regurgitation were not previously reported. Recommend transesophageal echocardiogram if clinically indicated. All additional appropriate imaging studies within the past 24 hours reviewed - images reviewed and independently interpreted. Sign Gema Jane APRN [facility] [place] 11/08/2024 9:38 AM * Shay Martin MD - 11/08/2024 7:40 AM EST Images from the original note were not included. Division of Pulmonary, Critical Care, and Sleep Medicine [address] [place] [address], [address], [place] [address] Critical Care Progress Note Assessment & Plan [...] Compared to previous outside study report from [facility] on 08/05/2024, Mitral and tricuspid regurgitation [...] Case IDs Date Procedure Surgeon Location Status [id number] 11/05/24 LEFT BELOW KNEE AMPUTATION Dallas Camejo [...] ruled out. This report was generated using [employer] Speaking dictation software. Although every attempt has [...] left lower extremity, continue LLE nutmegger and actuarial director. - skin checks to LLE bid - [...] CPAP 15L, sats drop when removed LLE: nutmegger/actuarial director in place. Thigh soft Labs: Recent Labs [...] were not included. Coverage for Dr. Mtz [facility] ID Progress Note Name: Blas Genao Age: [...] 11/05 -10/27: Left foot wound culture at [facility]: MRSA, Enterococcus faecalis, VRE, Corynebacterium species and [...] -Ceftaroline, 11/05 Plan: Patient was upgraded to [place] 11 stepdown secondary to increased oxygen requirement, [...] was performed in office at [facility] and images reviewed by orthopedic provider. [...] tablet 975 mg 975 mg Oral Q6H [facility] POOJA De Souza 975 mg at 11/07/24 0814 amiODARONE (PACERONE) tablet 200 mg 200 mg Oral BID POOJA De Souza 200 mg at 11/07/24 0817 amLODIPine (NORVASC) tablet 10 mg 10 mg Oral Daily POOJA De Souza 10 mg at 11/07/24 0817 aspirin enteric coated (ECOTRIN LOW STRENGTH) tablet 81 mg 81 mg Oral Q12H [facility] POOJA De Souza81 mg at [...] not compromised This report was generated using [employer] Speaking dictation software. Although every attempt has been made by the provider to proofread this document, occasional misspellings and typographical errors Sign Chris Taylor MD, FID, [facility] Infectious Diseases Available via [employer]oof 11/07/2024 11:30 AM * Lei Diaz MD [...] WOUND VAC; Surgeon: Dallas Camejo MD; Location: [facility] OR; Service: Orthopaedics; Laterality: Left; FOOT SURGERY Right x5 INCISION AND DRAINAGE FOOT Left OH PROCEDURE MAZE AFIB OSTECTOMY CALCANEOUS Left 09/10/2024 Procedure: ANKLE PARTIAL CALCANECTOMY; Surgeon: Dallas Camejo MD; Location: [facility] OR; Service: Orthopaedics; Laterality: Left; wOUND PARTIALLY [...] (two) times a day. Continuous Glucose Sensor (VerastemStyle Wallace 3 Sensor) [facility] INJECT 1 DEVICE INTO THE SKIN EVERY [...] to prior. Interpreted by: Roberto Tolbert MD Toy Electric Train Repairer Sign: Lei Diaz MD 11/07/2024 11:05 AM [...] the original note were not included. [facility] MEDICINE PROGRESS NOTE Assessment Mr. Blas [...] evaled started BiPap rescuse and transferred to OKU11. Plan Principal Problem: Acute osteomyelitis of left [...] Diet Diabetic/ Calorie Controlled; Carb Counting 60g/meal 2874-3050 kcal DVT Px: SCDs - RIGHT (Knee High) Status: Full Code Consults placed: Procedures Inpatient consult to Internal Medicine Inpatient consult to Infectious Diseases (Specify provider ) Inpatient consult to Social Work Inpatient consult to Anesthesiology Inpatient consult to cardiology ([facility]) Inpatient consult to cardiac surgery Inpatient [...] Case IDs Date Procedure Surgeon Location Status [id number] 11/05/24 LEFT BELOW KNEE AMPUTATION Dallas Camejo MD [facility] OR Comp Plan WB Status: NWB left lower extremity. Product Examiner stump actuarial director in place. Appreciate PT and OT recommendations. [...] oriented. LE: Dressing clean, dry, and intact. Product Examiner stump actuarial director in place. Labs: Recent Labs 11/05/24 0712 [...] level of independence with functional mobility. Baseline [facility] Basic Mobility Score: 24 Current [facility] Basic Mobility Score: 16 Objective Data ROM: [...] History Past Medical History: Diagnosis Date A-fib ([facility]) Acute osteomyelitis ([facility]) Atrial flutter ([facility]) Cardiac pacemaker 2016 Carotid atherosclerosis Charcot's joint of right foot 2015 Chronic sciatica Complete AV block ([facility]) Diabetes mellitus ([facility]) TYPE II Diabetic foot ulcer ([facility]) ED (erectile dysfunction) Edema ESBL (extended spectrum beta-lactamase) producing bacteria infection GERD (gastroesophageal reflux disease) GI bleed Hyperlipidemia Hypertension Leukocytosis Metabolic bone disease Multiple drug resistant organism (MDRO) culture positive Non healing left heel wound Obesity Osteoarthrosis Osteomyelitis of both feet ([facility]) PAD (peripheral artery disease) ([facility]) Primary osteoarthritis of knee Proteinuria Renal osteodystrophy Restless legs syndrome (RLS) no meds, lyrica helps Septic joint of left knee joint ([facility]) Sleep apnea BiPap Smoker Stage 3a chronic kidney disease (CKD) ([facility]) Past Surgical History: Procedure Laterality [...] WOUND VAC; Surgeon: Dallas Camejo MD; Location: [facility]; Service: Orthopaedics; Laterality: Left; FOOT SURGERY Right x5 INCISION AND DRAINAGE FOOT Left OH PROCEDURE MAZE AFIB OSTECTOMY CALCANEOUS Left 09/10/2024 Procedure: ANKLE PARTIAL CALCANECTOMY; Surgeon: Dallas Camejo MD; Location: [facility]; Service: Orthopaedics; Laterality: Left; wOUND PARTIALLY [...] Climbing 3-5 steps with a railing? 1 [facility] Basic Mobility Score 16 Therapy Assessment/Plan (PT) [...] PT goal 1 Transfer Goal 1 (PT) [place] Level/Cues Needed (Transfer Goal 1, PT) supervision required Time Frame (Transfer Goal 1, PT) 1 week Activity/Assistive Device (Transfer Goal 1, PT) acc-gf-dfmgm/rbykw-ea-hvv;hzt-sa-puycn/iwbzy-yx-itr;wheelchair transfer;walker, rolling Gait Training Goal 1 (PT) Time Frame (Gait Training Goal 1, PT) 1 week [place] Level (Gait Training Goal 1, PT) supervision required Activity/Assistive Device (Gait Training Goal 1, PT) gait (walking locomotion);assistive device use;maintain weight-bearing status;increase energy conservation;increase endurance/gait distance;walker, rolling Distance (Gait Training Goal 1, PT) 20 Wheelchair Locomotion Goal 1 (PT) [place] Level/Cues Needed (Wheelchair Locomotion Goal 1, PT) supervision required Time Frame (Wheelchair Locomotion Goal 1, PT) 1 week Activity (Wheelchair Locomotion Goal 1, PT) wheelchair mobility skills, all Distance Goal 1 (Wheelchair Locomotion, PT) 200 Sign: Jessica Daily, PT * Chris Taylor MD - 11/06/2024 10:58 AM EST Images from the original note were not included. Coverage for Dr. Mtz [facility] ID Progress Note Name: Blas Genao Age: [...] amputation -10/27: Left foot wound culture at [facility]: MRSA, Enterococcus faecalis, VRE, Corynebacterium species and [...] was performed in office at [facility] and images reviewed by orthopedic provider. [...] tablet 975 mg 975 mg Oral Q6H [facility] POOJA De Souza 975 mg at 11/05/24 0650 acetaminophen (TYLENOL) tablet 975 mg 975 mg Oral Q8H [facility] POOJA De Souza 975 mg [...] not compromised This report was generated using [email or web address] Speaking dictation software. Although every attempt has been made by the provider to proofread this document, occasional misspellings and typographical errors Sign Chris Taylor MD, SUBHA, [facility] Infectious Diseases Available via [employer] 11/06/2024 10:58 AM * Adama Prasad APRN [...] bumex PO 2mg daily). Continue telemetry [facility] hydraulic press [facility] [place] Subjective/24 hour Events C/o significant pain. No [...] Continuous Glucose Sensor (FreeStyle Wallace 3 Sensor) [facility] INJECT 1 DEVICE INTO THE SKIN EVERY [...] Compared to previous outside study report from [facility] on 08/05/2024, Mitral and tricuspid regurgitation [...] software and direct typing. Please excuse inadvertent staff development manager and typing errors. Sign Adama Prasad [...] Case IDs Date Procedure Surgeon Location Status [id number] 11/05/24 LEFT BELOW KNEE AMPUTATION Dallas Camejo MD [facility] OR Comp Plan Multimodal pain management DVT Prophylaxis: ASA 81mg PO BID Weight Bearing Status: NWB PT/OOB HV in place scant output overnight, will discuss with Dr. Camejo Appreciate Medicine, ID and Cardiology recs: for medical comanagement []TATIANNA pending []Blood Cultures Currently on Dapto, Ceftaroline Product Examiner Stump actuarial director ordered Subjective No complaints. No CP,SOB,N/V. Pain [...] the original note were not included. [facility] MEDICINE PROGRESS NOTE Assessment Mr. Blas [...] without problems. Last drink day before admission [facility] protocol ordered Diet: Diet Diabetic/ Calorie Controlled; Carb Counting 60g/meal 7967-4014 kcal DVT Px: SCDs - RIGHT (Knee High) Status: Full Code Consults placed: Procedures Inpatient consult to Internal Medicine Inpatient consult to Infectious Diseases (Specify provider ) Inpatient consult to Social Work Inpatient consult to Anesthesiology Inpatient consult to cardiology ([facility]) Inpatient consult to cardiac surgery Inpatient [...] for: LABBLOO No results found. Signature Juaquin Kren MD 11/06/2024 5:19 PM * POOJA De Souza - 11/05/2024 4:11 PM EST Orthopedic Post Operative Progress Note POD 0 Assessment & Plan 63 y.o. s/p Surgical/Procedural Cases on this Admission Case IDs Date Procedure Surgeon Location Status [id number] 11/05/24 LEFT BELOW KNEE AMPUTATION Dallas Camejo MD [facility] OR [facility] WB status: NWB LLE Postop antibiotics: [...] from the original note were not included. [facility] CARDIOLOGY SERVICE CONSULT Date of Consult: 11/05/2024 Patient's Primary Care Physician: Lee Fabian MD Physician Requesting Consult: Orthopedic surgery Primary Mitering Machine Operator: Mitering Machine Operator at [facility] Reason for Consultation: Preop Admit Date: [...] both feet (HCC) PAD (peripheral artery disease) ([facility]) Primary osteoarthritis of knee Proteinuria Renal osteodystrophy Restless legs syndrome (RLS) no meds, lyrica helps Septic joint of left knee joint ([facility]) Sleep apnea BiPap Smoker Stage 3a chronic kidney disease (CKD) ([facility]) Reviewed Past Surgical History: Procedure [...] Continuous Glucose Sensor (FreeStyle Wallace 3 Sensor) [facility] INJECT 1 DEVICE INTO THE SKIN EVERY [...] 9 bpm Confirmed by MD Danya, Deep ([id number]) on 11/03/2024 4:30:25 PM Echocardiogram (TTE) Comprehensive [...] Compared to previous outside study report from [facility] on 08/05/2024, Mitral and tricuspid regurgitation were not previously reported. Recommend transesophageal echocardiogram if clinically indicated. All additional appropriate imaging studies within the past 24 hours reviewed - images reviewed and independently interpreted. Sign: Nitish Tracy MD [facility] [place] 11/05/2024 2:43 PM * Hilda Alvarado RN - 11/05/2024 1:36 PM EST Images from the original note were not included. * Hilda Alvarado RN - 11/05/2024 1:00 PM EST Attending Anesthesiologist (JO-ANN) monitoring and aware of vitals during duration of block procedure. * Ena Mtz MD - 11/05/2024 9:42 AM EST Images from the original note were not included. [facility] INFECTIOUS DISEASE Consult progress Note Name: Blas [...] faecium 10/27: Left foot wound culture at [facility]: MRSA, Enterococcus faecalis, VRE, Corynebacterium speciesand gram-negative [...] 0851 Sign Ena Mtz MD, FACP, CWSP [facility] Infectious Diseases Available via [employer] SUBJECTIVE Tmax 102.3 ??F Fevers overnight [...] not compromised. This report was generated using [employer] Speaking dictation software. Although every attempt has [...] the original note were not included. [facility] MEDICINE PROGRESS NOTE Assessment Mr. Blas [...] consult to Anesthesiology Inpatient consult to cardiology ([facility]) Barriers for discharge: IV antibiotics, fevers, [...] request it: Integrative Medicine Services available at [facility], including, Massage Therapy, and Reiki/Energy Therapy Social Work Spiritual Care Pharmacist Nutrition Patient declined resources at this time. Demographic Screening: Medical insurance - Medicare Sweatband Maker involvement - No. Worker's compensation - No [...] staff will identify along with patient a bundle person to provide updates. Interventions Provided and reviewed [...] were not included. Coverage for Dr. Mtz [facility] ID Progress Note Name: Blas Genao Age: [...] ostectomy. -10/27: Left foot wound culture at [facility]: MRSA, Enterococcus faecalis, VRE, Corynebacterium species and [...] was performed in office at [facility] and images reviewed by orthopedic provider. Any findings are documented within ambulatory encounter note on date of service. Current Medications: Current Facility-Administered Medications Medication Dose Route Frequency Provider Last Rate Last Admin lactated ringers (LR) infusion 100 mL/hr Intravenous Continuous POOJA Akers acetaminophen (TYLENOL) tablet 975 mg 975 mg Oral Q6H [facility] POOJA Arias 975 mg at [...] Mcknight POOJA Vazquez 2 tablet at 11/03/24 7246 ALLERGIES: Allergies Allergen Reactions Lisinopril Other (See [...] not compromised This report was generated using [employer] Speaking dictation software. Although every attempt has been made by the provider to proofread this document, occasional misspellings and typographical errors Sign Chris Taylor MD, [facility], [facility] Infectious Diseases Available via [employer] 11/04/2024 9:13 AM * Juaquin Kern MD [...] Diet Diabetic/ Calorie Controlled; Carb Counting 60g/meal 9585-4146 kcal Diet NPO; Meds DVT Px: SCDs - Bilateral (Knee High) Status: Full Code Consults placed: Procedures Inpatient consult to Internal Medicine Inpatient consult to Infectious Diseases (Specify provider ) Inpatient consult to Social Work Inpatient consult to Anesthesiology Inpatient consult to cardiology ([facility]) Barriers for discharge: IV antibiotics, fevers, [...] [x]OR booked: case request and [facility] OR hotel front office manager notified [x]Abx big machine consultant to OR (2g ancef) []Pre-Op Noes to [...] Home alone Current Living Arrangements home (1-level, [facility]) Primary Care Provided by self [...] a [place] facility (including now)? 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 x 2 weekly) Concerns to be Addressed home safety;discharge planning Patient/Family Anticipates Transition to home with help/services;inpatient rehabilitation facility Patient/Family Anticipated Services at Transition home health care;prison;other (see comments) (inpatient rehab) Transportation Anticipated family or friend will provide;health plan transportation Current Discharge Risk physical impairment;lives alone;dependent with mobility/activities of daily living;chronically ill Discharge Coordination/Tasks Status Post Discharge Needs/Treatments PT;OT;Wound Care;Nursing Home Home Visit Patient/Patient Best Second Jobs Provided With [facility] [facility] Preferences(s) Homecare Company Preference(s) [facility] * Juaquin Kern MD - 11/03/2024 1:17 PM EST Images from the original note were not included. [facility] MEDICINE PROGRESS NOTE Assessment Mr. Blas [...] Diet Diabetic/ Calorie Controlled; Carb Counting 60g/meal 8514-0827 kcal DVT Px: SCDs Status: Full Code [...] []CMG conslt []ID consult []PICC line (ordered) []Product Examiner clinic: pre-amputation education/fitting []Blood cultures: pending []Dressing [...] Patient arrived around 1800 this evening to [place] [address] in no acute distress. Placed on contact [...] PAD, RLS and CKD with presents to [facility] inpatient floor for known left [...] (she has seen patient in the past) -Product Examiner to be called for pre-amputation education/fitting in [...] PAD, RLS and CKD3 that presents to [facility] inpatient floor as a direct [...] Objective Past Medical History: Diagnosis Date A-fib ([facility]) Acute osteomyelitis ([facility]) Atrial flutter ([facility]) Cardiac pacemaker 2016 Carotid atherosclerosis Charcot's joint of right foot 2015 Chronic sciatica Complete AV block ([facility]) Diabetes mellitus ([facility]) TYPE II Diabetic foot ulcer ([facility]) ED (erectile dysfunction) Edema ESBL (extended spectrum beta-lactamase) producing bacteria infection GERD (gastroesophageal reflux disease) GI bleed Hyperlipidemia Hypertension Leukocytosis Metabolic bone disease Multiple drug resistant organism (MDRO) culture positive Non healing left heel wound Obesity Osteoarthrosis Osteomyelitis of both feet ([facility]) PAD (peripheral artery disease) ([facility]) Primary osteoarthritis of knee Proteinuria Renal osteodystrophy Restless legs syndrome (RLS) no meds, lyrica helps Septic joint of left knee joint ([facility]) Sleep apnea BiPap Smoker Stage 3a chronic kidney disease (CKD) ([facility]) Past Surgical History: Procedure Laterality [...] WOUND VAC; Surgeon: Dallas Camejo MD; Location: [facility] OR; Service: Orthopaedics; Laterality: Left; FOOT SURGERY [...] Continuous Glucose Sensor (FreeStyle Wallace 3 Sensor) [facility] INJECT 1 DEVICE INTO THE SKIN EVERY [...] tablet 975 mg 975 mg, PO, Q6H [facility] Ordered amiODARONE (PACERONE) tablet 200 [...] PAD, RLS and CKD with presents to [facility] inpatient floor for known left [...] (she has seen patient in the past) -Product Examiner to be called for pre-amputation education/fitting in [...] PAD, RLS and CKD3 that presents to [facility] inpatient floor as a direct [...] Objective Past Medical History: Diagnosis Date A-fib ([facility]) Acute osteomyelitis ([facility]) Atrial flutter ([facility]) Cardiac pacemaker 2016 Carotid atherosclerosis Charcot's joint of right foot 2015 Chronic sciatica Complete AV block ([facility]) Diabetes mellitus ([facility]) TYPE II Diabetic foot ulcer ([facility]) ED (erectile dysfunction) Edema ESBL (extended spectrum beta-lactamase) producing bacteria infection GERD (gastroesophageal reflux disease) GI bleed Hyperlipidemia Hypertension Leukocytosis Metabolic bone disease Multiple drug resistant organism (MDRO) culture positive Non healing left heel wound Obesity Osteoarthrosis Osteomyelitis of both feet ([facility]) PAD (peripheral artery disease) ([facility]) Primary osteoarthritis of knee Proteinuria Renal osteodystrophy Restless legs syndrome (RLS) no meds, lyrica helps Septic joint of left knee joint ([facility]) Sleep apnea BiPap Smoker Stage 3a chronic kidney disease (CKD) ([facility]) Past Surgical History: Procedure Laterality [...] WOUND VAC; Surgeon: Dallas Camejo MD; Location: [facility] OR; Service: Orthopaedics; Laterality: Left; FOOT SURGERY Right x5 INCISION AND DRAINAGE FOOT Left [place] PROCEDURE MAZE AFIB OSTECTOMY CALCANEOUS Left 09/10/2024 Procedure: ANKLE PARTIAL CALCANECTOMY; Surgeon: Dallas Camejo MD; Location: [facility] OR; Service: Orthopaedics; Laterality: Left; wOUND PARTIALLY [...] Continuous Glucose Sensor (FreeStyle Wallace 3 Sensor) [facility] INJECT 1 DEVICE INTO THE SKIN EVERY [...] tablet 975 mg 975 mg, PO, Q6H [facility] Ordered amiODARONE (PACERONE) tablet 200 [...] by: Darrell Carcamo PA-C Authorized by: Darrell Carcmao PA-C Consent: Written consent obtained. Consent given by: patient Patient understanding: patient states understanding of the procedure being performed Patient consent: the patient's understanding of the procedure matches consent given Relevant documents: relevant documents present and verified Patient identity confirmed: arm band Time out: Immediately prior to procedure a time out was called to verify the correct patient, procedure, equipment, sales support rep and site/side marked as required. Indications: vascular [...] Representatives. HCR- Blas and Jessica. Copy in [employer]. 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 He is anticipating rehab in [...] meets clinical indications for proline placement for enforcement manager antibiotics in the setting of osteomyelitis and [...] guidelines to the screening nurse at ext: [id number] Please direct any questions regarding procedure time/ date to the specific imaging modality: US: ext: [id number] CT: ext: 61861 Fluoroscopy: ext: 05287 IR: ext: [id number] Consent: The patient is able to give [...] injection 5,000 Units On hold since Fri11/16/2024 [id number] until manually unheld; held by Herberth Whitmore [...] at 1.8mg/dL - regarding the question of nursing home PICC for Abx. This patient is [...] History Past Medical History: Diagnosis Date A-fib ([facility]) Acute osteomyelitis ([facility]) Atrial flutter ([facility]) Cardiac pacemaker 2016 Carotid atherosclerosis Charcot's joint of right foot 2015 Chronic sciatica Complete AV block ([facility]) Diabetes mellitus ([facility]) TYPE II Diabetic foot ulcer ([facility]) ED (erectile dysfunction) Edema ESBL (extended spectrum beta-lactamase) producing bacteria infection GERD (gastroesophageal reflux disease) GI bleed Hyperlipidemia Hypertension Leukocytosis Metabolic bone disease Multiple drug resistant organism (MDRO) culture positive Non healing left heel wound Obesity Osteoarthrosis Osteomyelitis of both feet ([facility]) PAD (peripheral artery disease) Primary osteoarthritis of knee Proteinuria Renal osteodystrophy Restless legs syndrome (RLS) no meds, lyrica helps Septic joint of left knee joint ([facility]) Sleep apnea BiPap Smoker Stage 3a chronic kidney disease (CKD) ([facility]) Past Surgical History: Procedure Laterality Date AMPUTATION Right 2018 TMA AMPUTATION BELOW KNEE Left 11/05/2024 Procedure: LEFT BELOW KNEE AMPUTATION; Surgeon: Dallas Camejo MD; Location: [facility] OR; Service: Orthopaedics; Laterality: Left; AORTOGRAM- ABDOMINAL [...] WOUND VAC; Surgeon: Dallas Camejo MD; Location: [facility] OR; Service: Orthopaedics; Laterality: Left; EXTRACTION LEAD(S) LASER FROM DUAL PM SYSTEM Left 11/17/2024 Procedure: Extraction lead(s) laser from dual PM system; 56725; Surgeon: Rui Pabon MD; Location: [facility] OR; Service: Electrophysiology; Laterality: Left; FOOT SURGERY Right x5 INCISION AND DRAINAGE FOOT Left INSERT/REPLACE LEADLESS PACEMAKER N/A 11/17/2024 Procedure: Micra Leadless Pacemaker Insert/Replacement; 59046; Surgeon: Rui Pabon MD; Location: [facility] OR; Service: Electrophysiology; Laterality: N/A; [place] PROCEDURE MAZE AFIB OSTECTOMY CALCANEOUS Left 09/10/2024 Procedure: ANKLE PARTIAL CALCANECTOMY; Surgeon: Dallas Camejo MD; Location: [facility] OR; Service: Orthopaedics; Laterality: Left; wOUND PARTIALLY [...] Continuous Glucose Sensor (FreeStyle Wallace 3 Sensor) [facility] INJECT 1 DEVICE INTO THE SKIN EVERY [...] injection 5,000 Units On hold since Fri11/16/2024 [id number] until manually unheld; held by Herberth Whitmore [...] found for: TACROLIMUS No results found for: [id number] , TOTVOL , CRCLR , PERIOD No [...] MD 11/19/2024 10:09 AM [facility] [phone] * Gilda May RN - 11/12/2024 3:31 PM EST [facility] Wound Care Consult Visit Date: 11/12/2024 Patient Name: Blas Genao Date of : 1960 Reason for Consult: initial Wound Team Summary Assessment: 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 Had been using [...] 1500 Number of days: 9 Gilda May CONTENT ADMINISTRATOR, CW 11/12/2024 3:31 PM * Janice Hazel [...] nighttime disruptions as medically appropriate. Maintain regular nhvzp-momz-gogac including appropriate lighting in the room. Consider [...] limb. Per orders patient is to have actuarial director on AAT, noted that residual limb was wrapped with srinivas wrap vs actuarial director. Reached out to orthopedic PA in regards to actuarial director for patient. Patient is motivated to participate [...] W/C, EMS transport and home PT. Current [facility] Basic Mobility Score: 14 OT 11/09 Summary: [...] with strength, balance and activity tolerance. Current [facility] Daily Activity Score: 15 Outcomes score [facility] The Activity Measure for Post-Acute Care (AM-PAC) [...] KNEE AMPUTATION; Surgeon: Dallas Camejo MD; Location: [facility] OR; Service: Orthopaedics; Laterality: Left; AORTOGRAM- ABDOMINAL [...] WOUND VAC; Surgeon: Dallas Camejo MD; Location: [facility] OR; Service: Orthopaedics; Laterality: Left; FOOT SURGERY Right x5 INCISION AND DRAINAGE FOOT Left [place] PROCEDURE MAZE AFIB OSTECTOMY CALCANEOUS Left 09/10/2024 Procedure: ANKLE PARTIAL CALCANECTOMY; Surgeon: Dallas Camejo MD; Location: [facility]; Service: Orthopaedics; Laterality: Left; wOUND PARTIALLY [...] (two) times a day. Continuous Glucose Sensor (VerastemStyle Wallace 3 Sensor) [facility] INJECT 1 DEVICE INTO THE SKIN EVERY [...] amputation. Left BKA with ampushield and stump actuarial director Skin: No skin breakdown to exposed skin [...] Hazel MD Physical Medicine & Rehabilitation, PGY-2 [facility] Available on [employer] secure chat Associated attestation - Lucho Red [...] ESTAssociated Order(s): IP CONSULT TO NUTRITION SERVICES [facility] Nutrition Note Visit Type: initial assessment [...] ??? 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 He typically has an egg sandwich for breakfast and a protein shake (like muscle milk), for lunch he has a egg or chicken salad sandwich and a protein drink, and dinner typically is a protein/starch/vegetable. Factors Affecting Nutritional Intake: Food Related Allergies: [facility] Cultural/Ethnic Preferences: None noted/reported. Food Insecurity Concerns: [...] - 2600 Kcals/day (20 - 25 Kcals/kg) [place]: RMR ([place]-St. Jeor Equation): 1920.63 [place]-St. Jeor (Considerations): 9604-0141 kcal (MSJ +1.2-1.3) based on 104 kg (229 lb 4.5 oz) (reported dry weight) Protein Needs: 117 - 141 gm, (1.5 - 1.8g/kg) based on 78.1 kg (172 lb 2.9 oz) (Adjusted IBW) Fluids: 2500ml based on Estimated/Assessed Carbohydrates Needs: 75 g CHO/meal Current Diet: Diet Diabetic/ Calorie Controlled; Carb Counting 60g/meal 6950-6431 kcal; 2 gm NA (Low Sodium); 2 [...] attending. Subjective History of Present Illness Blas Genoa is a 63 y.o. male with PMHx [...] Compared to previous outside study report from [facility] on 08/05/2024, Mitral and tricuspid regurgitation [...] KNEE AMPUTATION; Surgeon: Dallas Camejo MD; Location: [facility]; Service: Orthopaedics; Laterality: Left; AORTOGRAM- ABDOMINAL Left 09/15/2024 Procedure: LEFT LOWER EXTREMITY ANGIOGRAM; Surgeon: Delbert Mcintosh MD; Location: [facility]; Service: Peripheral Vascular; Laterality: Left; BARIATRIC SURGERY 2018 CARDIAC ELECTROPHYSIOLOGY STUDY AND ABLATION x5 CARDIAC PACEMAKER PLACEMENT 2016 CARDIAC SURGERY 2020 watchman device CARDIOVERSION 07/2024 CC PERIPHERAL ANGIOGRAPHY Left 07/2024 LE CHANGE DRESSING WOUND VAC Left 09/10/2024 Procedure: APPLICATION OF WOUND VAC; Surgeon: Dallas Camejo MD; Location: [facility]; Service: Orthopaedics; Laterality: Left; FOOT SURGERY Right x5 INCISION AND DRAINAGE FOOT Left [place] PROCEDURE MAZE AFIB OSTECTOMY CALCANEOUS Left 09/10/2024 Procedure: ANKLE PARTIAL CALCANECTOMY; Surgeon: Dallas Camejo MD; Location: [facility]; Service: Orthopaedics; Laterality: Left; wOUND PARTIALLY [...] Continuous Glucose Sensor (FreeStyle Wallace 3 Sensor) [facility] INJECT 1 DEVICE INTO THE SKIN EVERY [...] mouth 2(two) times a day. [facility]05[facility] acetaminophen, 975 mg, Oral, Q6H JUDSON [...] assessment, and plan as detailed in the assembler radio and electrical's note with the following exceptions, clarifications, or [...] from the original note were not included. [facility] CARDIOLOGY SERVICE CONSULT Date of Consult: 11/04/2024 Patient's Primary Care Physician: Lee Fabian MD Physician Requesting Consult: Orthopedic surgery Primary Mitering Machine Operator: Mitering Machine Operator at [facility] Reason for Consultation: Preop Admit Date: [...] Objective Past Medical History: Diagnosis Date A-fib ([facility]) Acute osteomyelitis ([facility]) Atrial flutter ([facility]) Cardiac pacemaker 2016 Carotid atherosclerosis Charcot's joint of right foot 2015 Chronic sciatica Complete AV block ([facility]) Diabetes mellitus ([facility]) TYPE II Diabetic foot ulcer ([facility]) ED (erectile dysfunction) Edema ESBL (extended spectrum beta-lactamase) producing bacteria infection GERD (gastroesophageal reflux disease) GI bleed Hyperlipidemia Hypertension Leukocytosis Metabolic bone disease Multiple drug resistant organism (MDRO) culture positive Non healing left heel wound Obesity Osteoarthrosis Osteomyelitis of both feet ([facility]) PAD (peripheral artery disease) ([facility]) Primary osteoarthritis of knee Proteinuria Renal osteodystrophy Restless legs syndrome (RLS) no meds, lyrica helps Septic joint of left knee joint ([facility]) Sleep apnea BiPap Smoker Stage 3a chronic kidney disease (CKD) ([facility]) Reviewed Past Surgical History: Procedure [...] WOUND VAC; Surgeon: Dallas Camejo MD; Location: [facility] OR; Service: Orthopaedics; Laterality: Left; FOOT SURGERY Right x5 INCISION AND DRAINAGE FOOT Left [place] PROCEDURE MAZE AFIB OSTECTOMY CALCANEOUS Left 09/10/2024 Procedure: ANKLE PARTIAL CALCANECTOMY; Surgeon: Dallas Camejo MD; Location: [facility] OR; Service: Orthopaedics; Laterality: Left; wOUND PARTIALLY [...] Continuous Glucose Sensor (FreeStyle Wallace 3 Sensor) [facility] INJECT 1 DEVICE INTO THE SKIN EVERY [...] Compared to previous outside study report from [facility] on 08/05/2024, Mitral and tricuspid regurgitation were not previously reported. Recommend transesophageal echocardiogram if clinically indicated. All additional appropriate imaging studies within the past 24 hours reviewed - images reviewed and independently interpreted. Sign: Nitish Tracy MD [facility] Heart [facility] V[facility] [place] 11/04/2024 3:31 PM * MIGUEL ÁNGEL VirgenW [...] and supports. Pt has been working at [employer] in [facility] up until recently. He shared he is deemed disabledunder Social Security Disability though has been working under ticket to work program. Pt states does not anticipate being able to return to his line of work and states he will get fpc disability. Discussed [place] Paid Leave. Pt states [...] area. Gave pt info and literature on [facility]. Pt is familiar with this service though has not used it. He was glad to have the information. Thereis no application process for this service. Anyone 60 or older that lives within [facility]'s service area can use it and make reservations at [phone]. Pt indicates being able to facilitate rides to his CT follow ups as it's not anticipated that the [facility] service would bring him to [place]. He [...] Patient Psychosocial History Demographic Information Preferred Language: Greenlandic Preferred Name: Blas Relationship status: Single Children: Blas Genao Adult Son Legal next of kin [phone] Advance Directive Advance Directives:Advance Directives Does Patient Have Advance Directives?: yes Living Will: yes, copy requested Healthcare [employer]: yes, copy requested Legally Authorized [employer] Blas Genao Adult Son Legal next of kin [phone] Living Environment Household Members: pt and 3 pet cats Living Arrangements: House Does the patient have any environmental/safety concerns? No Support System Who currently provides assistance/support for the patient? Son , friends Also has homecare [facility]vs [facility] Quality of support systems? Supportive Patient provides care for: Self and Pet cats has 3 Employment/Finances/Insurance Financial Source: has been salary wages. Pt states he will be back on disability. Has been working through Social [employer] to Work Program and will be back [...] from the original note were not included. [facility] INFECTIOUS DISEASE CONSULTATION Date of Consult: 11/03/2024 [...] Negative 10/27: Left foot wound culture at [place]: MRSA, Enterococcus faecalis, VRE, Corynebacterium speciesand gram-negative [...] Orders 11/02/241942 Robert Mtz MD, FACP, SP [facility] Infectious Diseases Available via [employer] SUBJECTIVE HISTORY OF PRESENT ILLNESS: This is a 63 y.o. year-old male complex medical history of atrial fibrillation, cardiac pacemaker, Watchman device, diabetes type II, history of ESBL infection, peripheral vascular disease, chronic kidney disease, diabetic foot infection/osteomyelitis, status post right TMA, recent hospitalization at [facility] for left diabetic foot infection. He underwent debridement of the left foot on 08/22 and repeat debridement on 08/24. Intraoperative cultures then revealed Enterococcus, ESBL E. coli and was treated with amoxicillin, meropenem and Flagyl. Fernanda parapsilosis was thought to be a contaminant. He was admitted to [facility] and underwent left calcaneus ostectomy on [...] HISTORY: Past Medical History: Diagnosis Date A-fib ([facility]) Acute osteomyelitis ([facility]) Atrial flutter ([facility]) Cardiac pacemaker 2016 Carotid atherosclerosis Charcot's joint of right foot 2015 Chronic sciatica Complete AV block ([facility]) Diabetes mellitus ([facility]) TYPE II Diabetic foot ulcer ([facility]) ED (erectile dysfunction) Edema ESBL (extended spectrum beta-lactamase) producing bacteria infection GERD (gastroesophageal reflux disease) GI bleed Hyperlipidemia Hypertension Leukocytosis Metabolic bone disease Multiple drug resistant organism (MDRO) culture positive Non healing left heel wound Obesity Osteoarthrosis Osteomyelitis of both feet ([facility]) PAD (peripheral artery disease) ([facility]) Primary osteoarthritis of knee Proteinuria Renal osteodystrophy Restless legs syndrome (RLS) no meds, lyrica helps Septic joint of left knee joint ([facility]) Sleep apnea BiPap Smoker Stage 3a chronic kidney disease (CKD) ([facility]) PAST SURGICAL HISTORY: Past Surgical [...] WOUND VAC; Surgeon: Dallas Camejo MD; Location: [facility]; Service: Orthopaedics; Laterality: Left; FOOT SURGERY Right x5 INCISION AND DRAINAGE FOOT Left [place] PROCEDURE MAZE AFIB OSTECTOMY CALCANEOUS Left 09/10/2024 Procedure: ANKLE PARTIAL CALCANECTOMY; Surgeon: Dallas Camejo MD; Location: [facility]; Service: Orthopaedics; Laterality: Left; wOUND PARTIALLY [...] not compromised. This report was generated using [email or web address] dictation software. Although every attempt has been made by the provider to proofread this document, occasional misspellings and typographical errors may still be present. documented in this encounter Miscellaneous Notes * Plan of Care - Mitesh Caldwell RN - 11/25/2024 7:51 PM EST Patient being discharged home with home services. Patient has a proline and will require fpc antibiotics. Option care educated patient on home [...] ling within reach, safety precaution maintained. 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 He typically has an egg sandwich [...] Aspiration precautions Diet Cardiac; Carb Counting 60g/meal 6425-2374 kcal; 2 gm NA (Low Sodium); Low [...] to be available at inpatient rehab for enforcement manager antibiotics. Call ling within reach, safety precautions [...] IV antibiotics continue. [facility] d/c. Call ling within reach, safety precautions maintained. Nelson Iqbal 11/23/2024 7:15 PM * Plan of Care - Ellyn Patel RN - 11/23/2024 8:07 AM EST Plan of Care Reviewed With: patient Outcome Evaluation: Patient without complaints during the shift. Sleep study completed on room air.Plan is for discharge to inpatient rehab for fpc antibiotics when bed is available. Ellyn Patel [...] ling within reach, safety precautions maintained. Marisel Wary 11/20/2024 6:14 PM * Plan of Care [...] of Care Review Outcome: Progressing Vpaced on [id number]-[id number] on IV Cubicin andIV Rocephin-Plan for PICC placement ?today for fpc anti-Bx's-see flowsheet for full assessment/vs Hansa Navarro [...] from the original note were not included. [address] [address] OPERATIVE REPORT Patient Name: Blas Genao Date of : 1960 Date of Procedure: 11/17/2024 Surgeons and Role: * Rui Pabon MD - Primary * Corbin Lamb APRN - Physician Bargeman Pre-op Diagnosis: Pacemaker infection, subsequent encounter [T82.7XXD] Post-Op Diagnosis Codes: * Pacemaker infection, subsequent encounter [T82.7XXD] Details of Procedure Procedure(s): Extraction lead(s) laser from dual PM system; 33968 Micra Leadless Pacemaker Insert/Replacement; 24693 Additional Procedures Surgeon: Rui Pabon MD Bargeman: : : Corbin Lamb APRN Anesthesia: Monitor [...] femoral venous access was obtained. A 12 Guatemalan sheath was placed in the right femoral vein. Through this an Amplatz stiff wire was advanced under fluoroscopic visualization to the right IJ. Using ultrasound-guided Seldinger technique left femoral venous access was obtained. 8 Guatemalan sheath was placed in left femoral vein. [...] support. We then began with a 14 Guatemalan laser sheath. Under fluoroscopic visualization we started with the right ventricular lead. 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 We were able to progress to the innominate area. Here we reached the innominate region and had significant fibrosis. We then remove the 14 Guatemalan laser sheath and moved to the right [...] then used the right femoral venous 12 Guatemalan sheath and Amplatz wire which was in [...] ventricle positioning on the septum. ADAME and BRAZILIAN position confirmed our placement.We did an initial deployment here. Sensing of paced R wave was 12 mV. Device impedance was 520 ohms. Threshold was initially 1.5 V that decreased to 1.2 V. However remained at 1.2 V at 0.24 ms. We therefore retrieved the device back into the deploying sheath. We then movedthe device slightly superior. ADAME and BRAZILIAN position to confirm septal position. Initial testing [...] Z stitch was placed around the 8 Guatemalan sheath as well and the sheath was [...] Implant Name Type Inv. Item Serial No. Control Officer Manager Lot No. LRB No. Used Action [id number] PACEMAKER CARDIAC MICRA AV2 LDLS BNDL - [id number] Pacemaker [id number] PACEMAKER CARDIAC MICRA AV2 LDLS BNDL [id number] [employer] Left 1 Implanted Specimens: Dual-chamber pacemaker generator; chronic right atrial 5076 active- fixation Medtronic lead; chronic right ventricular 5076 active-fixation Medtronic lead; 2 sewing rings. 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 He typically has an egg sandwich [...] Daily Energy and Protein Needs: Energy Needs: [place]: RMR ([place]-St. Jeor Equation): 1920.63 [place]-St. Jeor (Considerations): 1457-9214 kcal (MSJ +1.2-1.3) based on 104 kg [...] with Dr. Daniel Ramos MD Neurology PGY-2 [facility] * Hospital Course - Gianluca Calles MD [...] while on IV antibiotics. Fax results to [phone]. Patient will need to be scheduled [...] R plantar foot, typically followed by wound center/rn staffing outpatient near patient's home. Had been using [...] at discharge summary. Tracy Lopez RN, CDS [phone] * Plan of Care - Eunice Khan [...] no change Outcome Evaluation: Assumed care from [id number]. Pt alert and oriented x4. Seems to [...] Case IDs Date Procedure Surgeon Location Status [id number] 11/05/24 LEFT BELOW KNEE AMPUTATION Dallas Camejo [...] 4 mg q3h PRN for severe pain ([id number]). 1x dose of liquid dilaudid 1mg given [...] Compared to previous outside study report from [facility] on 08/05/2024, Mitral and tricuspid regurgitation [...] Intake/Output Summary (Last 24 hours) at 11/11/2024 3826 Last data filed at 11/11/2024 0600 Gross [...] options, pt agreeable to referrals in the [facility] area. Referrals placed to [place] and [facility] rehabs Recommendation:inpt rehab Problem: Adult [...] Compared to previous outside study report from [facility] on 08/05/2024, Mitral and tricuspid regurgitation [...] legal medical record Tracy Lopez RN, CDS [phone] * Provider Documentation Query - Shay Martin [...] legal medical record. Tracy Lopez RN, CDS [phone] * Plan of Care - Krystina Felipe [...] in [place] d/t need for rescue NIV. [facility] 16 on 11/06-will needupdated PT/OT notes, pt active with [facility], may need inpt rehab. CM will [...] Compared to previous outside study report from [facility] on 08/05/2024, Mitral and tricuspid regurgitation [...] Plan of Care Review Flowsheets (Taken 11/08/2024 0675) Outcome Evaluation: Assumed care of pt at [...] PM * Plan of Care - Rafiq Cahkraborty MD - 11/07/2024 11:26 AM EST Critical [...] to prior. Interpreted by: Roberto Tolbert MD Toy Electric Train Repairer XR Chest 1 view-Portable (STAT) Final Result Bilateral reticulonodular opacities concerning for interstitial edema. Superimposed atypical infection cannot be ruled out. Interpreted by: David Vogt DO Toy Electric Train Repairer I personally reviewed the images and the resident's preliminary report and AGREE with the report as it is now presented (RADPAL1). Echocardiogram (TTE) Comprehensive (Contrast PRN) Final Result Transesophageal Echocardiogram (Results Pending) CT Head w/contrast (Results Pending) Rafiq Chakraborty MD PGY-3 [facility] Internal Medicine [place] text preferred 11/07/24 11:26 AM * Plan [...] LBM 11/06. Dsg to L BKA cdi, Product Examiner actuarial director in place. Pt reporting adequate paincontrol this [...] level of independence with self-care tasks. Baseline [facility] Daily Activity Score: 24 Current [facility] Daily Activity Score: 18 Objective Data Cognitive Status: Alert+oriented x4, follows multi step instructions and communicates appropriately Cognitive Function: Attention: intact Memory/recall: intact Safety Awareness: intact, however would benefit from further education and training Insight: good, however would benefit from further education and resin shaver Function: intact Activities of Daily Living: Grooming/Oral [...] both feet (HCC) PAD (peripheral artery disease) ([facility]) Primary osteoarthritis of knee Proteinuria Renal osteodystrophy Restless legs syndrome (RLS) no meds, lyrica helps Septic joint of left knee joint ([facility]) Sleep apnea BiPap Smoker Stage 3a chronic kidney disease (CKD) ([facility]) Past Surgical History: Procedure Laterality [...] WOUND VAC; Surgeon: Dallas Camejo MD; Location: [facility] OR; Service: Orthopaedics; Laterality: Left; FOOT SURGERY Right x5 INCISION AND DRAINAGE FOOT Left OH PROCEDURE MAZE AFIB OSTECTOMY CALCANEOUS Left 09/10/2024 Procedure: ANKLE PARTIAL CALCANECTOMY; Surgeon: Dallas Camejo MD; Location: [facility] OR; Service: Orthopaedics; Laterality: Left; wOUND PARTIALLY [...] Progressive Mobility Level Achieved Transferring to Chair [facility] Daily Activity Putting on and taking off Lower Body Clothing? 2 Bathing (including washing/rinsing/drying)? 3 Toileting (includes using toilet, bedpan, or urinal)? 2 Putting on and taking off upper body clothing? 4 Taking care of personal grooming such as brushing teeth? 3 Eating meals? 4 [facility] Daily Activity Score 18 Therapy Assessment/Plan (OT) [...] OT goal 1 Bathing Goal 1 (OT) [place] Level/Cues Needed (Bathing Goal 1, OT) modified independence Activity/Device (Bathing Goal 1, OT) bathing skills, all Time Frame (Bathing Goal 1, OT) 2 weeks Dressing Goal 1 (OT) Activity/Device (Dressing Goal 1, OT) lower body dressing Time Frame (Dressing Goal 1, OT) 1 week [place]/Cues Needed (Dressing Goal 1, OT) modified independence Toileting Goal 1 (OT) Activity/Device (Toileting Goal 1, OT) toileting skills, all Time Frame (Toileting Goal 1, OT) 1 week [place] Level/Cues Needed (Toileting Goal 1, OT) modified [...] from the original note were not included. [facility] [address] [facility] [id number] OPERATIVE REPORT Patient Name: Blas Genao Date [...] Type Source Tests Collected by Time Destination [id number] : Left leg below the knee amputation [...] Findings: see op note Anesthesia: general Staff: Yard Worker: Mary Emery RN Scrub Precepting: Binta Griffith CST Yard Worker Relief: Cynthia Desai RN Estimated Blood Loss: * No values recorded between 11/05/2024 2:06 PM and 11/05/2024 3:22 PM * Specimens: ID Type Source Tests Collected by Time Destination [id number] : Left leg below the knee amputation Bone with Tissue Leg, left PATHOLOGY REPORT Dallas Camejo MD 11/05/2024 [address] She[address]s Date: 11/05/2024 Time: 3:32 PM Procedure(s): LEFT BELOW KNEE AMPUTATION Orthopedics Brief Op Note Blas eGnao 11/02/2024 - 11/05/2024 Pre-op Diagnosis: Acute osteomyelitis of left calcaneus (HCC) [M86.172] Post-Op Diagnosis Codes: * Acute osteomyelitis of left calcaneus (HCC) [M86.172] Procedure(s) (LRB): LEFT BELOW KNEE AMPUTATION (Left) Surgeon(s): SHUBHAM Triana MD Anesthesia: general Staff: Yard Worker: Mary Emery RN Scrub Precepting: Binta Griffith CST Yard Worker Relief: Cynthia Desai RN Estimated Blood Loss: 25 ml Specimens: ID Type Source Tests Collected by Time Destination [id number] : Left leg below the knee amputation [...] Consults: Needs a postop eval from [facility]. Already being followed by ID, [...] Plan for OR today. Will have TATIANNA. Explosives Operator to follow Naveen Kebede 11/05/2024 9:29 AM [...] to rule out septic emboli to brain ptety with acute mental status change. MD Emiliana Perez Cardiology T: [phone] F: [phone] Main Office: [address] [place] [address] * Provider Documentation Query - Juaquin Kern [...] at discharge summary. Tracy Lopez RN, CDS [phone] * Plan of Care - Belkys Diaz RN - 11/05/2024 1:54 AM EST Problem: Adult Inpatient Plan of Care Goal: Plan of Care Review Outcome: Progressing Flowsheets (Taken 11/05/2024 5364) Plan of Care Reviewed With: patient Progress: [...] Care Review Outcome: Progressing Flowsheets (Taken 11/04/2024 3751) Plan of Care Reviewed With: patient Progress: [...] PM * Plan of Care - Jemma BullTHIEN - 11/03/2024 3:31 PM EST Initial Case Management Care Plan Note Assessment completed with patient and/or patient's pharmaceutical service representative, medical record review and discussion with clinical team. CC met with the patient using social distancing. Provided a Case Coordination packet with contact information, CC pamphlet and Your Next Step: Care Outside the Hospital brochure to the patient and/or patient pharmaceutical service representative. Summary: 63 yo M admitted for [...] home health services. 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, requested addition of PT & OT to POC Barriers to discharge: OR 11/05 Product Examiner - P2P requested ID plan PT/OT evals [...] - SN 3 weekly (wound care) & COMMERCIAL LENDING VICE PRESIDENT x 2 weekly) homecare agency Jemma Bull [...] 12/07/2024 1:30 PM EDT Appointment [facility] [place] - Electrophysiology [address] [place] [address] Gretel Hinds, TECHNICAL SUPPORT PROFESSIONAL [address] [address] 12/14/2024 2:00 PM EDT Office Visit [facility] [address] [address] Dallas Camejo MD [address] [place] [address] 12/16/2024 8:30 AM EDT Office Visit [facility] Infectious Disease [address] [place] [phone] Ena Mtz MD [address] [place] [address] Pending Results Name Type Priority Associated Diagnoses [...] AM EST PM SINGLE LEAD EVAL WITH PROGRAM,[id number] Routine 11/18/2024 7:45 AM EST COMPLETE BLOOD [...] EST PM DUAL LEAD EVAL WITH PROGRAMMING, [id number] Routine 11/12/2024 1:15 PM EST POCT GLUCOSE, [...] EST PM DUAL LEAD EVAL WITH PROGRAMMING, [id number] Routine 11/11/2024 4:33 PM EST ECHOCARDIOGRAM TRANSESOPHAGEAL [...] CARE TEST O RDERALUCILLE Performing Organization Address [facility] Phone Number [facility] See Below * (ABNORMAL) POCT Glucose, Fingerstick (11/25/2024 8:40 AM EST) POC Glucose 150(H) 65 - 99 mg/dL 11/25/2024 8:41 AM EST Blood specimen / Unknown 11/25/2024 8:40 AM EST 11/25/2024 8:41 AM EST Dallas Camejo MD POINT OF CARE TEST O RDERALUCILLE Performing Organization Address [facility] [place] Phone Number HOSPITAL LAB See Below * (ABNORMAL) POCT Glucose, Fingerstick (11/24/2024 4:56 PM EST) POC Glucose 105(H) 65 - 99 mg/dL 11/24/2024 5:00 PM EST Blood specimen / Unknown 11/24/2024 4:56 PM EST 11/24/2024 5:00 PM EST Dallas Camejo MD POINT OF CARE TEST O R[place]ALUC[place]LE Performing Organization Address [facility] Co de Phone Number [...] CARE TEST O RDERABLES Performing Organization Address [facility] Co de Phone Number [facility] See Below * (ABNORMAL) POCT Glucose, Fingerstick (11/24/2024 7:52 AM EST) POC Glucose 103(H) 65 - 99 mg/dL 11/24/2024 8:11 AM EST Blood specimen / Unknown 11/24/2024 7:52 AM EST 11/24/2024 8:11 AM EST Dallas Camejo MD POINT OF CARE TEST O RDERALUC[place]LE Performing Organization Address [facility]/ZIP [place] Phone Number [facility] See Below * (ABNORMAL) Complete Blood Count WITHOUT Differential - in AM (11/24/2024 6:56 AM EST) Pathologist [facility] White Blood Cell Count 10.0 4.0 - 11.0 Thou/uL 11/24/2024 9:12 AM [facility] Platelet Count 366 150 - 450 Thou/uL 11/24/2024 9:12 AM [facility] Hemoglobin 9.0(L) 13.0 - 17.7 g/dL 11/24/2024 9:12 AM [facility] Hematocrit 29.5(L) 39.0 - 54.0 % 11/24/2024 9:12 AM [facility] Red Blood Cell Count 3.25(L) 4.50 - 6.20 Mil/uL 11/24/2024 9:12 AM [facility] MCV 91 80 - 100 fL 11/24/2024 9:12 AM [facility] MCH 27.7 27.0 - 31.0 pg 11/24/2024 9:12 AM [facility] MCHC 30.5 30.0 - 36.0 g/dL 11/24/2024 9:12 AM [facility] RDW 18.0(H) 11.5 - 14.5 % 11/24/2024 9:12 AM [facility] MPV 10.8 7.5 - 12.5 fL 11/24/2024 9:12 AM [facility] Blood Blood specimen / Unknown 11/24/2024 6:56 AM EST 11/24/2024 8:52 AM EST Gianluca Calles MD LAB BLOOD ORDERABLES Performing Organization Address City/State/[facility] [place] [address], [address] [address] * (ABNORMAL) Comprehensive Metabolic Panel (AM) (11/24/2024 6:56 AM EST) Glucose 99 65 - 99 mg/dL 11/24/2024 9:28 AM [facility] Comment:Fasting: <100 mg/dL, Non-Fasting: <200 mg/dL (ADA 2005) Blood Urea Nitrogen (BUN) 35(H) 8 - 21 mg/dL 11/24/2024 9:28 AM [facility] Creatinine 1.6(H) 0.5 - 1.3 mg/dL 11/24/2024 9:28 AM [facility] eGFR 48(L) >59 11/24/2024 9:28 AM [facility] Comment:CKD-EPI (2020) in mL /min/1.73 sq meters. Sodium 139 136 - 145 mmol/L 11/24/2024 9:28 AM [facility] Potassium 3.8 3.4 - 5.3 mmol/L 11/24/2024 9:28 AM [facility] Chloride 102 98 - 107 mmol/L 11/24/2024 9:28 AM [facility] CO2 24 22 - 33 mmol/L 11/24/2024 9:28 AM [facility] Calcium 8.9 8.7 - 10.5 mg/dL 11/24/2024 9:28 AM [facility] Alkaline Phosphatase 97 45 - 128 U/L 11/24/2024 9:28 AM [facility] Aspartate Aminotrans (AST) 14 10 - 55 U/L 11/24/2024 9:28 AM [facility] Alanine Aminotrans (ALT) 20 10 - 55 U/L 11/24/2024 9:28 AM [facility] Bilirubin, Total 0.2 0.2 - 1.0 mg/dL 11/24/2024 9:28 AM [facility] Protein, Total 6.7 6.3 - 8.3 g/dL 11/24/2024 9:28 AM [facility] Albumin 3.1(L) 3.4 - 4.8 g/dL 11/24/2024 9:28 AM [facility] BUN/Creatinine Ratio 22 10.0 - 25.0 Ratio 11/24/2024 9:28 AM [facility] Globulin 3.6 1.5 - 3.9 g/dL 11/24/2024 9:28 AM [facility] Albumin/Globulin Ratio 0.9(L) 1.0 - 3.0 Ratio 11/24/2024 9:28 AM [facility] Anion Gap 13 7 - 17 11/24/2024 9:28 AM [facility] Blood Blood specimen / Unknown 11/24/2024 6:56 AM EST 11/24/2024 8:52 AM EST Gianluca Calles MD LAB BLOOD ORDERABLES [address] [address], [address] [address] * (ABNORMAL) POCT Glucose, Fingerstick (11/23/2024 8:48 PM EST) POC Glucose 116(H) 65 - 99 mg/dL 11/23/2024 8:49 PM EST Blood specimen / Unknown 11/23/2024 8:48 PM EST 11/23/2024 8:49 PM EST Dallas Camejo MD POINT OF CARE TEST O RDERALUCILLE Performing Organization Address [facility] See Below * POCT Glucose, Fingerstick (11/23/2024 4:35 PM EST) POC Glucose 84 65 - 99 mg/dL 11/23/2024 4:36 PM EST Blood specimen / Unknown 11/23/2024 4:35 PM EST 11/23/2024 4:36 PM EST Dallas Camejo MD POINT OF CARE TEST O RDERALUCILLE Performing Organization Address [facility] LAB See Below * (ABNORMAL) POCT Glucose, Fingerstick (11/23/2024 11:35 AM EST) POC Glucose 151(H) 65 - 99 mg/dL 11/23/2024 11:36 AM EST Blood specimen / Unknown 11/23/2024 11:35 AM EST 11/23/2024 11:36 AM EST Dallas Camejo MD POINT OF CARE TEST O RDERALUCILLE Performing Organization Address [facility] Number [facility] See Below * Influenza A/B, RSV, SARS-CoV-2 BALJINDER Multiplex (FLUVID) (11/23/2024 10:45 AM EST) Pathologist [facility] Influenza A Virus Not Detected Not Detected 11/23/2024 12:00 PM [facility] Influenza B Virus Not Detected Not Detected 11/23/2024 12:00 PM [facility] SARS-CoV-2 Not Detected Not Detected 11/23/2024 12:00 PM [facility] Respiratory Syncytial Virus Not Detected Not Detected 11/23/2024 12:00 PM [facility] Comment Negative results do not preclude SARS-CoV-2, Influenza or RSV infection and should not be used as the sole basis for treatment or other patient management decisions. 11/23/2024 12:00 PM EST [facility] Swab, Nasopharyngeal Nasopharyngeal swab / Unknown 11/23/2024 10:45 AM EST 11/23/2024 11:08 AM EST Gianluca Calles MD MICROBIOLOGY - GENER AL ORDERABLES Performing Organization Address [facility] Co de Phone Number [address] [address], [address] [address] * (ABNORMAL) POCT Glucose, Fingerstick (11/23/2024 7:34 AM EST) POC Glucose 126(H) 65 - 99 mg/dL 11/23/2024 7:35 AM EST Blood specimen / Unknown 11/23/2024 7:34 AM EST 11/23/2024 7:35 AM EST Dallas Camejo MD POINT OF CARE TEST O RDERABLES Performing Organization Address City/[facility]/ZIP Co de Phone Number HOSPITAL LAB See Below * (ABNORMAL) C-REACTIVE PROTEIN (11/23/2024 6:43 AM EST) C-Reactive Protein 4.88(H) 0 - 0.49 mg/dL 11/23/2024 11:53 AM EST [facility] 11/23/2024 6:43 AM EST 11/23/2024 6:49 AM EST Gianluca Calles MD LAB BLOOD ORDERABLES Performing Organization Address [facility] Co de Phone Number [address] [address], [address] [address] * (ABNORMAL) Erythrocyte Sedimentation Rate (ESR) (11/23/2024 6:43 AM EST) Erythrocyte Sediment Rate (ESR) 62(H) <20 MM/HR 11/23/2024 12:07 PM EST [facility] Blood specimen / Unknown 11/23/2024 6:43 AM EST 11/23/2024 6:49 AM EST Gianluca Calles MD LAB BLOOD ORDERABLES Performing Organization Address City/[facility]/[place] [address], [address] [address] * (ABNORMAL) HEPATIC FUNCTION PANEL (11/23/2024 6:43 AM EST) Pathologist [facility] Alkaline Phosphatase 103 45 - 128 U/L 11/23/2024 11:53 AM [facility] Aspartate Aminotrans (AST) 22 10 - 55 U/L 11/23/2024 11:53 AM [facility] Alanine Aminotrans (ALT) 28 10 - 55 U/L 11/23/2024 11:53 AM [facility] Bilirubin, Total 0.2 0.2 - 1.0 mg/dL 11/23/2024 11:53 AM [facility] Protein, Total 6.6 6.3 - 8.3 g/dL 11/23/2024 11:53 AM [facility] Albumin 3.1(L) 3.4 - 4.8 g/dL 11/23/2024 11:53 AM [facility] Bilirubin, Direct 0.1 0 - 0.2 mg/dL 11/23/2024 11:53 AM [facility] Globulin 3.5 1.5 - 3.9 g/dL 11/23/2024 11:53 AM [facility] Albumin/Globulin Ratio 0.9(L) 1.0 - 3.0 Ratio 11/23/2024 11:53 AM [facility] 11/23/2024 6:43 AM EST 11/23/2024 6:49 AM EST Gianluca Calles MD LAB BLOOD ORDERABLES [address] [address], [address] [address] * CREATINE KINASE (CK) (11/23/2024 6:43 AM EST) Creatine Kinase (CK) 36 24 - 204 U/L 11/23/2024 11:53 AM [facility] 11/23/2024 6:43 AM EST 11/23/2024 6:49 AM EST Gianluca Calles MD LAB BLOOD ORDERABLES Performing Organization Address [facility] Co de Phone Number [address] [address], [address] [address] * (ABNORMAL) Complete Blood Count WITHOUT Differential - in AM (11/23/2024 6:43 AM EST) Pathologist [facility] White Blood Cell Count 10.8 4.0 - 11.0 Thou/uL 11/23/2024 7:01 AM [facility] Platelet Count 353 150 - 450 Thou/uL 11/23/2024 7:01 AM [facility] Hemoglobin 8.7(L) 13.0 - 17.7 g/dL 11/23/2024 7:01 AM [facility] Hematocrit 28.3(L) 39.0 - 54.0 % 11/23/2024 7:01 AM [facility] Red Blood Cell Count 3.14(L) 4.50 - 6.20 Mil/uL 11/23/2024 7:01 AM [facility] MCV 90 80 - 100 fL 11/23/2024 7:01 AM [facility] MCH 27.7 27.0 - 31.0 pg 11/23/2024 7:01 AM [facility] MCHC 30.7 30.0 - 36.0 g/dL 11/23/2024 7:01 AM [facility] RDW 18.0(H) 11.5 - 14.5 % 11/23/2024 7:01 AM [facility] MPV 10.4 7.5 - 12.5 fL 11/23/2024 7:01 AM [facility] Blood Blood specimen / Unknown 11/23/2024 6:43 AM EST 11/23/2024 6:49 AM EST Gianluca Calles MD [place] [address], [address] [address] * Magnesium (AM) (11/23/2024 6:43 AM EST) Magnesium 2.2 1.6 - 2.7 mg/dL 11/23/2024 7:22 AM [facility] Blood Blood specimen / Unknown 11/23/2024 6:43 AM EST 11/23/2024 6:49 AM EST Gianluca Calles MD LAB BLOOD ORDERABLES Performing Organization Address City/[facility]/[place] [address], [place] [address] * (ABNORMAL) Basic Metabolic Panel (AM) (11/23/2024 6:43 AM EST) Glucose 114(H) 65 - 99 mg/dL 11/23/2024 7:22 AM [facility] Comment:Fasting: <100 mg/dL, Non-Fasting: <200 mg/dL (ADA 2004) Blood Urea Nitrogen (BUN) 31(H) 8 - 21 mg/dL 11/23/2024 7:22 AM [facility] Creatinine 1.5(H) 0.5 - 1.3 mg/dL 11/23/2024 7:22 AM [facility] eGFR 52(L) >59 11/23/2024 7:22 AM [facility] Comment:CKD-EPI (2020) in mL /min/1.73 sq meters. Sodium 140 136 - 145 mmol/L 11/23/2024 7:22 AM [facility] Potassium 4.0 3.4 - 5.3 mmol/L 11/23/2024 7:22 AM [facility] Chloride 104 98 - 107 mmol/L 11/23/2024 7:22 AM [facility] CO2 25 22 - 33 mmol/L 11/23/2024 7:22 AM [facility] Anion Gap 11 7 - 17 11/23/2024 7:22 AM [facility] Calcium 9.0 8.7 - 10.5 mg/dL 11/23/2024 7:22 AM [facility] BUN/Creatinine Ratio 21 10.0 - 25.0 Ratio 11/23/2024 7:22 AM EST [facility] Blood Blood specimen / Unknown 11/23/2024 6:43 AM EST 11/23/2024 6:49 AM EST Gianluca Calles MD LAB BLOOD ORDERABLES [address] [address], [address] [address] * (ABNORMAL) POCT Glucose, Fingerstick (11/22/2024 9:02 PM EST) POC Glucose 138(H) 65 - 99 mg/dL 11/22/2024 9:02 PM EST Blood specimen / Unknown 11/22/2024 9:02 PM EST 11/22/2024 9:03 PM EST Dallas Camejo MD POINT OF CARE TEST O RDERABLES [facility] See Below * (ABNORMAL) POCT [...] Session [id number] PACEART Implantable Pulse Generator Control Officer Manager [employer] PACEART Implantable Pulse Generator Model [id number] Micra AV2 PACEART Implantable Pulse Generator Serial Number [id number] PACEART Implantable Pulse Generator Type Pacemaker PACEART [...] last reset 99.86 % PACEART Otf Statistic FILLING LAYER UP Percent 100.00 % PACEART Otf Statistic VS Percent 0 % PACEART Anatomical Region Laterality Modality Other 11/22/2024 1:58 PM EST Narrative 11/28/2024 10:40 AM EST Micra AV leadless Pacemaker evaluation completed on B10E. Per patient request and verbal order from SHUBHAM Pitts: LRL increased from 50 bpm to 60 bpm. Presenting rhythm: AM/FILLING LAYER UP @ 62 bpm. Underlying rhythm: CHB. AM/FILLING LAYER UP pacing 81%, with total V-pacing 100%. Battery [...] POCT Glucose, Fingerstick (11/22/2024 7:35 AM EST) [facility] POC Glucose 194(H) 65 - 99 mg/dL 11/22/2024 7:37 AM EST Blood specimen / Unknown 11/22/2024 7:35 AM EST 11/22/2024 7:37 AM EST Dallas Camejo MD [facility]INT [facility] CARE [facility] See Below * Magnesium (AM) (11/22/2024 7:31 AM EST) [facility] Magnesium 2.0 1.6 - 2.7 mg/dL 11/22/2024 8:17 AM EST [facility] Blood (Plasma/Serum) 11/22/2024 7:31 AM EST 11/22/2024 7:54 AM EST Gianluca Calles MD LAB BLOOD ORDERABLES Performing Organization Address City/[facility] [place] [address], [place] [address] * (ABNORMAL) Complete Blood Count WITHOUT Differential - in AM (11/22/2024 7:31 AM EST) [facility] White Blood Cell Count 12.1(H) 4.0 - 11.0 Thou/uL 11/22/2024 8:19 AM [facility] Platelet Count 333 150 - 450 Thou/uL 11/22/2024 8:19 AM [facility] Hemoglobin 8.1(L) 13.0 - 17.7 g/dL 11/22/2024 8:19 AM [facility] Hematocrit 26.2(L) 39.0 - 54.0 % 11/22/2024 8:19 AM [facility] Red Blood Cell Count 2.88(L) 4.50 - 6.20 Mil/uL 11/22/2024 8:19 AM [facility] MCV 91 80 - 100 fL 11/22/2024 8:19 AM [facility] MCH 28.1 27.0 - 31.0 pg 11/22/2024 8:19 AM [facility] MCHC 30.9 30.0 - 36.0 g/dL 11/22/2024 8:19 AM [facility] RDW 18.0(H) 11.5 - 14.5 % 11/22/2024 8:19 AM [facility] MPV 10.5 7.5 - 12.5 fL 11/22/2024 8:19 AM [facility] Blood Blood specimen / Unknown 11/22/2024 7:31 AM EST 11/22/2024 7:54 AM EST Gianluca Calles MD [place] [address], [place] [address] * (ABNORMAL) Basic Metabolic Panel (AM) (11/22/2024 7:31 AM EST) Glucose 178(H) 65 - 99 mg/dL 11/22/2024 8:17 AM [facility] Comment:Fasting: <100 mg/dL, Non-Fasting: <200 mg/dL (ADA 2004) Blood Urea Nitrogen (BUN) 36(H) 8 - 21 mg/dL 11/22/2024 8:17 AM [facility] Creatinine 1.6(H) 0.5 - 1.3 mg/dL 11/22/2024 8:17 AM [facility] eGFR 48(L) >59 11/22/2024 8:17 AM [facility] Comment:CKD-EPI (2020) in mL /min/1.73 sq meters. Sodium 137 136 - 145 mmol/L 11/22/2024 8:17 AM [facility] Potassium 4.2 3.4 - 5.3 mmol/L 11/22/2024 8:17 AM [facility] Chloride 101 98 - 107 mmol/L 11/22/2024 8:17 AM [facility] CO2 27 22 - 33 mmol/L 11/22/2024 8:17 AM [facility] Anion Gap 9 7 - 17 11/22/2024 8:17 AM [facility] Calcium 8.8 8.7 - 10.5 mg/dL 11/22/2024 8:17 AM [facility] BUN/Creatinine Ratio 23 10.0 - 25.0 Ratio 11/22/2024 8:17 AM [facility] Blood (Plasma/Serum) 11/22/2024 7:31 AM EST 11/22/2024 7:54 AM EST Gianluca Calles MD [place] [address], [place] [address] * (ABNORMAL) POCT Glucose, Fingerstick (11/21/2024 9:28 [...] CARE TEST O RDERABLES Performing Organization Address [facility] Co de Phone Number [facility] See Below * (ABNORMAL) POCT Glucose, Fingerstick (11/21/2024 7:45 AM EST) Pathologist [facility] POC Glucose 175(H) 65 - 99 mg/dL 11/21/2024 7:54 AM EST Blood specimen / Unknown 11/21/2024 7:45 AM EST 11/21/2024 7:54 AM EST Dallas Camejo MD POINT OF CARE TEST O RDERABLES Performing Organization Address [facility] Co de Phone Number [facility] See Below * Magnesium (AM) (11/21/2024 6:58 AM EST) [facility] Magnesium 2.1 1.6 - 2.7 mg/dL 11/21/2024 8:14 AM EST [facility] Blood (Plasma/Serum) 11/21/2024 6:58 AM EST 11/21/2024 7:36 AM EST Gianluca Calles MD LAB BLOOD ORDERABLES Performing Organization Address [facility] Co de Phone Number [address] [address], [address] [address] * (ABNORMAL) Complete Blood Count WITHOUT Differential - in AM (11/21/2024 6:58 AM EST) [facility] White Blood Cell Count 14.0(H) 4.0 - 11.0 Thou/uL 11/21/2024 7:55 AM EST [facility] Platelet Count 329 150 - 450 Thou/uL 11/21/2024 7:55 AM [facility] Hemoglobin 8.2(L) 13.0 - 17.7 g/dL 11/21/2024 7:55 AM [facility] Hematocrit 26.7(L) 39.0 - 54.0 % 11/21/2024 7:55 AM [facility] Red Blood Cell Count 2.95(L) 4.50 - 6.20 Mil/uL 11/21/2024 7:55 AM [facility] MCV 91 80 - 100 fL 11/21/2024 7:55 AM [facility] MCH 27.8 27.0 - 31.0 pg 11/21/2024 7:55 AM [facility] MCHC 30.7 30.0 - 36.0 g/dL 11/21/2024 7:55 AM [facility] RDW 17.8(H) 11.5 - 14.5 % 11/21/2024 7:55 AM [facility] MPV 10.4 7.5 - 12.5 fL 11/21/2024 7:55 AM [facility] Blood Blood specimen / Unknown 11/21/2024 6:58 AM EST 11/21/2024 7:36 AM EST Gianluca Calles MD [place] [address], [place] [address] * (ABNORMAL) Basic Metabolic Panel (AM) (11/21/2024 6:58 AM EST) Glucose 153(H) 65 - 99 mg/dL 11/21/2024 8:14 AM [facility] Comment:Fasting: <100 mg/dL, Non-Fasting: <200 mg/dL (ADA 2005) Blood Urea Nitrogen (BUN) 38(H) 8 - 21 mg/dL 11/21/2024 8:14 AM [facility] Creatinine 1.8(H) 0.5 - 1.3 mg/dL 11/21/2024 8:14 AM [facility] eGFR 42(L) >59 11/21/2024 8:14 AM [facility] Comment:CKD-EPI (2020) in mL /min/1.73 sq meters. Sodium 136 136 - 145 mmol/L 11/21/2024 8:14 AM [facility] Potassium 3.7 3.4 - 5.3 mmol/L 11/21/2024 8:14 AM [facility] Chloride 99 98 - 107 mmol/L 11/21/2024 8:14 AM [facility] CO2 27 22 - 33 mmol/L 11/21/2024 8:14 AM [facility] Anion Gap 10 7 - 17 11/21/2024 8:14 AM [facility] Calcium 8.8 8.7 - 10.5 mg/dL 11/21/2024 8:14 AM [facility] BUN/Creatinine Ratio 21 10.0 - 25.0 Ratio 11/21/2024 8:14 AM [facility] Blood (Plasma/Serum) 11/21/2024 6:58 AM EST 11/21/2024 7:36 AM EST Gianluca Calles MD [place] [address], [place] [address] * (ABNORMAL) POCT Glucose, Fingerstick (11/20/2024 8:16 [...] CARE TEST O RDERABLES Performing Organization Address [facility] [place] Phone Number [facility] See Below * (ABNORMAL) POCT Glucose, Fingerstick (11/20/2024 12:07 PM EST) POC Glucose 167(H) 65 - 99 mg/dL 11/20/2024 12:12 PM EST Blood specimen / Unknown 11/20/2024 12:07 PM EST 11/20/2024 12:12 PM EST Dallas Camejo MD POINT OF CARE TEST O RDERABLES Performing Organization Address [facility] Phone Number [facility] See Below * (ABNORMAL) POCT Glucose, Fingerstick (11/20/2024 7:58 AM EST) POC Glucose 166(H) 65 - 99 mg/dL 11/20/2024 8:02 AM EST Blood specimen / Unknown 11/20/2024 7:58 AM EST 11/20/2024 8:02 AM EST Dallas Camejo MD POINT OF CARE TEST O RDERABLES Performing Organization Address [facility] [place] Phone [place] [facility] See Below * Magnesium (AM) (11/20/2024 6:59 AM EST) Magnesium 2.2 1.6 - 2.7 mg/dL 11/20/2024 8:04 AM EST [facility] Blood (Plasma/Serum) 11/20/2024 6:59 AM EST 11/20/2024 7:31 AM EST Gianluca Calles MD LAB BLOOD ORDERABLES Performing Organization Address [facility] Co de Phone Number [address] [address], [address] [address] * (ABNORMAL) Complete Blood Count WITHOUT Differential - in AM (11/20/2024 6:59 AM EST) White Blood Cell Count 11.9(H) 4.0 - 11.0 Thou/uL 11/20/2024 7:45 AM [facility] Platelet Count 339 150 - 450 Thou/uL 11/20/2024 7:45 AM [facility] Hemoglobin 8.3(L) 13.0 - 17.7 g/dL 11/20/2024 7:45 AM [facility] Hematocrit 27.2(L) 39.0 - 54.0 % 11/20/2024 7:45 AM [facility] Red Blood Cell Count 3.01(L) 4.50 - 6.20 Mil/uL 11/20/2024 7:45 AM [facility] MCV 90 80 - 100 fL 11/20/2024 7:45 AM [facility] MCH 27.6 27.0 - 31.0 pg 11/20/2024 7:45 AM [facility] MCHC 30.5 30.0 - 36.0 g/dL 11/20/2024 7:45 AM [facility] RDW 17.5(H) 11.5 - 14.5 % 11/20/2024 7:45 AM [facility] MPV 10.7 7.5 - 12.5 fL 11/20/2024 7:45 AM [facility] Blood Blood specimen / Unknown 11/20/2024 6:59 AM EST 11/20/2024 7:31 AM EST Gianluca Calles MD LAB BLOOD ORDERABLES [address] [address], [address] [address] * (ABNORMAL) Basic Metabolic Panel (AM) (11/20/2024 6:59 AM EST) [facility] Glucose 155(H) 65 - 99 mg/dL 11/20/2024 8:04 AM [facility] Comment:Fasting: <100 mg/dL, Non-Fasting: <200 mg/dL (ADA 2005) Blood Urea Nitrogen (BUN) 47(H) 8 - 21 mg/dL 11/20/2024 8:04 AM [facility] Creatinine 1.9(H) 0.5 - 1.3 mg/dL 11/20/2024 8:04 AM [facility] eGFR 39(L) >59 11/20/2024 8:04 AM [facility] Comment:CKD-EPI (2020) in mL /min/1.73 sq meters. Sodium 137 136 - 145 mmol/L 11/20/2024 8:04 AM [facility] Potassium 3.8 3.4 - 5.3 mmol/L 11/20/2024 8:04 AM [facility] Chloride 98 98 - 107 mmol/L 11/20/2024 8:04 AM [facility] CO2 30 22 - 33 mmol/L 11/20/2024 8:04 AM [facility] Anion Gap 9 7 - 17 11/20/2024 8:04 AM [facility] Calcium 9.0 8.7 - 10.5 mg/dL 11/20/2024 8:04 AM [facility] BUN/Creatinine Ratio 25 10.0 - 25.0 Ratio 11/20/2024 8:04 AM [facility] Blood (Plasma/Serum) 11/20/2024 6:59 AM EST 11/20/2024 7:31 AM EST Gianluca Calles MD [place] [address], [address] [address] * (ABNORMAL) POCT Glucose, Fingerstick (11/19/2024 4:13 PM EST) POC Glucose 274(H) 65 - 99 mg/dL 11/19/2024 4:14 PM EST Blood specimen / Unknown 11/19/2024 4:13 PM EST 11/19/2024 4:14 PM EST Dallas Camejo MD POINT [facility] CARE [facility] See Below * (ABNORMAL) Urinalysis with Reflex to Microscopic (11/19/2024 4:00 PM EST) Color Yellow 11/19/2024 4:30 PM [facility] Clarity Clear 11/19/2024 4:30 PM [facility] Specific Romulus 1.008 1.003 - 1.030 11/19/2024 4:30 PM [facility] pH 6.0 5.0 - 8.0 11/19/2024 4:30 PM [facility] Leukocyte Esterase Large(A) Negative 11/19/2024 4:30 PM [facility] Nitrite Negative Negative 11/19/2024 4:30 PM [facility] Protein Negative Negative 11/19/2024 4:30 PM [facility] Glucose 0 0 - 99 mg/dL 11/19/2024 4:30 PM [facility] Ketones Negative Negative 11/19/2024 4:30 PM [facility] Blood Negative Negative 11/19/2024 4:30 PM [facility] Bilirubin Negative Negative 11/19/2024 4:30 PM [facility] WBC >25(H) 0 - 4 per hpf 11/19/2024 4:30 PM [facility] RBC 2 0 - 4 per hpf 11/19/2024 4:30 PM [facility] X-Specimen 16 Voided urine specimen / Unknown 11/19/2024 4:00 PM EST 11/19/2024 4:18 PM EST Anmol Reynoso MD URINE ORDERABLES [address] [address], [address] [address] * OSMOLALITY, URINE (11/19/2024 4:00 PM EST) Osmolality, Urine 201 50 - 1,200 mOsm/Kg 11/19/2024 6:20 PM [facility] Urine Urine specimen / Unknown 11/19/2024 4:00 PM EST 11/19/2024 4:19 PM EST Anmol Reynoso MD URINE ORDERABLES Performing Organization Address City/[facility] Co de Phone Number [address] [address], [address] [address] * Urea Nitrogen, Urine, Random (11/19/2024 4:00 PM EST) Urea Nitrogen, Random Urine 273 mg/dL 11/19/2024 5:43 PM EST [facility] Comment:Reference range not established for random specimen. Urine Urine specimen / Unknown 11/19/2024 4:00 PM EST 11/19/2024 4:19 PM EST Anmol Reynoso MD URINE ORDERABLES Performing Organization Address [facility] Co de Phone Number [address] [address], [address] [address] * SODIUM, URINE, RANDOM (11/19/2024 4:00 PM EST) Sodium, Urine Random 21 mmol/L 11/19/2024 5:43 PM EST [facility] Comment:Reference range not established for random specimen. Urine Urine specimen / Unknown 11/19/2024 4:00 PM EST 11/19/2024 4:19 PM EST Anmol Reynoso MD URINE ORDERABLES Performing Organization Address City/[facility] Co de Phone Number [address] [address], [address] [address] * CREATININE, URINE, RANDOM (11/19/2024 4:00 PM EST) Creatinine, Urine, Random 31 mg/dL 11/19/2024 5:43 PM EST [facility] Comment:Reference range not established for random specimen. Urine Urine specimen / Unknown 11/19/2024 4:00 PM EST 11/19/2024 4:19 PM EST Anmol Reynoso MD URINE ORDERABLES Performing Organization Address [facility] [place] [address], [place] [address] * Chloride, Urine, Random (11/19/2024 4:00 PM EST) Chloride, Urine, Random 23 mmol/L 11/19/2024 5:43 PM EST [facility] Comment:Reference range not established for random specimen. Urine Urine specimen / Unknown 11/19/2024 4:00 PM EST 11/19/2024 4:19 PM EST Anmol Reynoso MD URINE ORDERABLES Performing Organization Address [facility] [place] [address], [place] [address] * CVC INSERT (TUNNEL) W/O PORT GREATER [...] A preprocedure time-out was performed per [facility] protocol. The right neck and chest was [...] access, a 26 cm long dual lumen 5-[place]atem[place] cuffed tunneled catheter was placed under fluoroscopic [...] A preprocedure time-out was performed per [facility] protocol. The right neck and chest was [...] access, a 26 cm long dual lumen 5-[place]atem[place] cuffed tunneled catheter was placed under fluoroscopic [...] Glucose, Fingerstick (11/19/2024 11:39 AM EST) Pathologist [facility] POC Glucose 205(H) 65 - 99 mg/dL 11/19/2024 11:40 AM EST Blood specimen / Unknown 11/19/2024 11:39 AM EST 11/19/2024 11:40 AM EST Dallas Camejo MD [facility] See Below * (ABNORMAL) POCT Glucose, Fingerstick (11/19/2024 8:06 AM EST) Pathologist [facility] POC Glucose 190(H) 65 - 99 mg/dL 11/19/2024 8:08 AM EST Blood specimen / Unknown 11/19/2024 8:06 AM EST 11/19/2024 8:08 AM EST Dallas Camejo MD POINT [facility] See Below * (ABNORMAL) Complete Blood Count WITHOUT Differential - Daily x2 (11/19/2024 7:54 AM EST) Pathologist [facility] White Blood Cell Count 10.1 4.0 - 11.0 Thou/uL 11/19/2024 8:48 AM EST [facility] Platelet Count 354 150 - 450 Thou/uL 11/19/2024 8:48 AM [facility] Hemoglobin 8.2(L) 13.0 - 17.7 g/dL 11/19/2024 8:48 AM [facility] Hematocrit 26.6(L) 39.0 - 54.0 % 11/19/2024 8:48 AM [facility] Red Blood Cell Count 2.99(L) 4.50 - 6.20 Mil/uL 11/19/2024 8:48 AM [facility] MCV 89 80 - 100 fL 11/19/2024 8:48 AM [facility] MCH 27.4 27.0 - 31.0 pg 11/19/2024 8:48 AM [facility] MCHC 30.8 30.0 - 36.0 g/dL 11/19/2024 8:48 AM [facility] RDW 17.2(H) 11.5 - 14.5 % 11/19/2024 8:48 AM [facility] MPV 10.8 7.5 - 12.5 fL 11/19/2024 8:48 AM [facility] Blood Blood specimen / Unknown 11/19/2024 7:54 AM EST 11/19/2024 8:33 AM EST Corbin Lamb APRN LAB BLOOD ORDERABL ES Performing Organization Address City/[facility]/[place] [address], [place] [address] * Magnesium (Daily x 2 days) (11/19/2024 7:54 AM EST) Magnesium 2.1 1.6 - 2.7 mg/dL 11/19/2024 9:00 AM [facility] Blood (Plasma/Serum) 11/19/2024 7:54 AM EST 11/19/2024 8:33 AM EST Corbin Lamb APRN LAB BLOOD ORDERABL ES Performing Organization Address City/[facility] [place] [address], [facility] [address] [place] [address] * (ABNORMAL) Basic Metabolic Panel (Daily x 2 days) (11/19/2024 7:54 AM EST) Glucose 169(H) 65 - 99 mg/dL 11/19/2024 9:00 AM [facility] Comment:Fasting: <100 mg/dL, Non-Fasting: <200 mg/dL (ADA 2004) Blood Urea Nitrogen (BUN) 43(H) 8 - 21 mg/dL 11/19/2024 9:00 AM [facility] Creatinine 1.8(H) 0.5 - 1.3 mg/dL 11/19/2024 9:00 AM [facility] eGFR 42(L) >59 11/19/2024 9:00 AM [facility] Comment:CKD-EPI (2020) in mL /min/1.73 sq meters. Sodium 132(L) 136 - 145 mmol/L 11/19/2024 9:00 AM [facility] Potassium 3.7 3.4 - 5.3 mmol/L 11/19/2024 9:00 AM [facility] Chloride 92(L) 98 - 107 mmol/L 11/19/2024 9:00 AM [facility] CO2 30 22 - 33 mmol/L 11/19/2024 9:00 AM [facility] Anion Gap 10 7 - 17 11/19/2024 9:00 AM [facility] Calcium 9.1 8.7 - 10.5 mg/dL 11/19/2024 9:00 AM [facility] BUN/Creatinine Ratio 24 10.0 - 25.0 Ratio 11/19/2024 9:00 AM [facility] Blood (Plasma/Serum) 11/19/2024 7:54 AM EST 11/19/2024 8:33 AM EST Corbin Lamb APRN LAB BLOOD ORDERABL ES [address] [address], [address] [address] * (ABNORMAL) POCT Glucose, Fingerstick (11/18/2024 9:04 PM EST) Pathologist [facility] POC Glucose 253(H) 65 - 99 mg/dL 11/18/2024 9:11 PM EST Blood specimen / Unknown 11/18/2024 9:04 PM EST 11/18/2024 9:11 PM EST Dallas Camejo MD POINT OF CARE TEST O RDERALUCILLE Performing Organization Address [facility] LAB See Below * (ABNORMAL) POCT Glucose, Fingerstick (11/18/2024 4:56 PM EST) POC Glucose 305(H) 65 - 99 mg/dL 11/18/2024 4:58 PM EST Blood specimen / Unknown 11/18/2024 4:56 PM EST 11/18/2024 4:57 PM EST Dallas Camejo MD POINT OF CARE TEST O RDGHANSHYAM Performing Organization Address [facility] LAB See Below * (ABNORMAL) POCT Glucose, Fingerstick (11/18/2024 12:00 PM EST) POC Glucose 253(H) 65 - 99 mg/dL 11/18/2024 12:01 PM EST Blood specimen / Unknown 11/18/2024 12:00 PM EST 11/18/2024 12:01 PM EST Dallas Camejo MD POINT OF CARE TEST O RDERALUCILLE Performing Organization Address [facility] Phone Number [facility] LAB See Below * (ABNORMAL) POCT Glucose, Fingerstick (11/18/2024 7:53 AM EST) POC Glucose 129(H) 65 - 99 mg/dL 11/18/2024 7:58 AM EST Blood specimen / Unknown 11/18/2024 7:53 AM EST 11/18/2024 7:58 AM EST Dallas Camejo MD POINT OF CARE TEST O RDERALUCILLE Performing Organization Address [facility]/State/ZIP Co de Phone Number HOSPITAL LAB See Below * PM SINGLE LEAD EVAL WITH PROGRAM,[id number] (11/18/2024 7:45 AM EST) Date Time Interrogation Session ,,[id number],07 [phone] PACEART Implantable Pulse Generator Control Officer Manager [employer] PACEART Implantable Pulse Generator Model [id number] Micra AV2 PACEART Implantable Pulse Generator Serial Number [id number] PACEART Implantable Pulse Generator Type Pacemaker PACEART [...] last reset 92.76 % PACEART Otf Statistic FILLING LAYER UP Percent 99.88 % PACEART Otf Statistic VS Percent 0.12 % PACEART Anatomical Region Laterality Modality Other 11/18/2024 7:35 AM EST Narrative 11/19/2024 12:19 PM EST Pacemaker evaluation completed on B10E, device interrogation ordered for post-OP. Presenting rhythm: AM-FILLING LAYER UP @ 69 bpm. Underlying rhythm: No ventricular response greater than 40 bpm. AM-FILLING LAYER UP @ 84.8%. Battery and device parameters evaluated and within normal limits. Normal pacemaker function. Micra pacemakers do not record events. Sri Pena RN Corbin Lamb APRN CV CARDIAC SERVICE S ORDERABLES * Creatine Kinase (CK) (11/18/2024 7:15 AM EST) Creatine Kinase (CK) 49 24 - 204 U/L 11/18/2024 8:22 AM [facility] Blood (Plasma/Serum) 11/18/2024 7:15 AM EST 11/18/2024 7:47 AM EST Corbin Lamb APRN LAB BLOOD ORDERABL ES Performing Organization Address [facility]/ZIP Co de Phone Number [address] [address], [address] [address] * (ABNORMAL) Complete Blood Count WITHOUT Differential - Daily x2 (11/18/2024 7:15 AM EST) White Blood Cell Count 12.3(H) 4.0 - 11.0 Thou/uL 11/18/2024 8:00 AM [facility] Platelet Count 349 150 - 450 Thou/uL 11/18/2024 8:00 AM [facility] Hemoglobin 8.1(L) 13.0 - 17.7 g/dL 11/18/2024 8:00 AM [facility] Hematocrit 25.5(L) 39.0 - 54.0 % 11/18/2024 8:00 AM [facility] Red Blood Cell Count 2.90(L) 4.50 - 6.20 Mil/uL 11/18/2024 8:00 AM [facility] MCV 88 80 - 100 fL 11/18/2024 8:00 AM [facility] MCH 27.9 27.0 - 31.0 pg 11/18/2024 8:00 AM [facility] [place] [facility] 31.8 30.0 - 36.0 g/dL 11/18/2024 8:00 AM [facility] RDW 17.1(H) 11.5 - 14.5 % 11/18/2024 8:00 AM [facility] MPV 10.6 7.5 - 12.5 fL 11/18/2024 8:00 AM [facility] Blood Blood specimen / Unknown 11/18/2024 7:15 AM EST 11/18/2024 7:47 AM EST Corbin Lamb APRN LAB BLOOD ORDERABL ES [facility] [address] [place] [address], [facility] [address] [place] [address] * Magnesium (Daily x 2 days) (11/18/2024 7:15 AM EST) Pathologist [facility] Magnesium 2.0 1.6 - 2.7 mg/dL 11/18/2024 8:22 AM [facility] Blood (Plasma/Serum) 11/18/2024 7:15 AM EST 11/18/2024 7:47 AM EST Corbin Lamb TECHNICAL SUPPORT PROFESSIONAL LAB BLOOD ORDERABL ES [facility] [address] [place] [address], [facility] [address] [place] [address] * (ABNORMAL) Basic Metabolic Panel (Daily x 2 days) (11/18/2024 7:15 AM EST) Pathologist [facility] Glucose 114(H) 65 - 99 mg/dL 11/18/2024 8:22 AM [facility] Comment:Fasting: <100 mg/dL, Non-Fasting: <200 mg/dL (ADA 2005) Blood Urea Nitrogen (BUN) 45(H) 8 - 21 mg/dL 11/18/2024 8:22 AM [facility] Creatinine 1.8(H) 0.5 - 1.3 mg/dL 11/18/2024 8:22 AM [facility] eGFR 42(L) >59 11/18/2024 8:22 AM [facility] Comment:CKD-EPI (2020) in mL /min/1.73 sq meters. Sodium 129(L) 136 - 145 mmol/L 11/18/2024 8:22 AM [facility] Potassium 3.6 3.4 - 5.3 mmol/L 11/18/2024 8:22 AM [facility] Chloride 89(L) 98 - 107 mmol/L 11/18/2024 8:22 AM [facility] CO2 29 22 - 33 mmol/L 11/18/2024 8:22 AM [facility] Anion Gap 11 7 - 17 11/18/2024 8:22 AM [facility] Calcium 8.9 8.7 - 10.5 mg/dL 11/18/2024 8:22 AM EST [facility] BUN/Creatinine Ratio 25 10.0 - 25.0 Ratio 11/18/2024 8:22 AM EST [facility] Blood (Plasma/Serum) 11/18/2024 7:15 AM EST 11/18/2024 7:47 AM EST Corbin Lamb APRN LAB BLOOD ORDERABL ES [facility] [address] [place] [address], [facility] [address] [place] [address] * XR Chest 1 view (11/17/2024 5:48 [...] femoral venous access was obtained. ??A 12 Guatemalan sheath was placed in the right femoral vein. ?? Through this an Amplatz stiff wire was advanced under fluoroscopic visualization to the right IJ. ??Using ultrasound-guided Seldinger technique left femoral venous access was obtained. ??8 Guatemalan sheath was placed in left femoral vein. [...] support. ??We then began with a 14 Guatemalan laser sheath. ??Under fluoroscopic visualization we started with the right ventricular lead. ?? 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 ??We were able to progress to the innominate area. ??Here we reached the innominate region and had significant fibrosis. ??We then remove the 14 Guatemalan laser sheath and moved to the right [...] then used the right femoral venous 12 Guatemalan sheath and Amplatz wire which was in [...] ventricle positioning on the septum. ??ADAME and BRAZILIAN position confirmed our placement.We did an initial deployment here. ??Sensing of paced R wave was 12 mV. ??Device impedance was 520 ohms. ??Threshold was initially 1.5 V that decreased to 1.2 V. ??However remained at 1.2 V at 0.24 ms. ??We therefore retrieved the device back into the deploying sheath. ??We then moved the device slightly superior. ??ADAME and BRAZILIAN position to confirm septal position. ??Initial testing [...] ??Z stitch was placed around the 8 Guatemalan sheath as well and the sheath was [...] CARE TEST O RDERABLES Performing Organization Address [facility] Phone Number [facility] See Below * (ABNORMAL) POCT Glucose, Fingerstick (11/17/2024 11:18 AM EST) POC Glucose 153(H) 65 - 99 mg/dL 11/17/2024 11:22 AM EST Blood specimen / Unknown 11/17/2024 11:18 AM EST 11/17/2024 11:22 AM EST Dallas Camejo MD POINT OF CARE TEST O RDERABLES Performing Organization Address [facility] LAB See Below * Phosphorus (AM) (11/17/2024 8:16 AM EST) Phosphorus 3.5 2.7 - 4.5 mg/dL 11/17/2024 9:01 AM EST [facility] Blood (Plasma/Serum) 11/17/2024 8:16 AM EST 11/17/2024 8:30 AM EST Maddison Villalpando MD LAB BLOOD ORDERABLES Performing [place] [address], [address] [address] * Magnesium (AM) (11/17/2024 8:16 AM EST) Magnesium 2.0 1.6 - 2.7 mg/dL 11/17/2024 9:01 AM EST [facility] Blood (Plasma/Serum) 11/17/2024 8:16 AM EST 11/17/2024 8:30 AM EST Maddison Villalpando MD LAB BLOOD ORDERABLES Performing Organization Address [facility] [place] [address], [address] [address] * (ABNORMAL) POCT Glucose, Fingerstick (11/17/2024 7:20 AM EST) Pathologist [facility] POC Glucose 206(H) 65 - 99 mg/dL 11/17/2024 7:31 AM EST Blood specimen / Unknown 11/17/2024 7:20 AM EST 11/17/2024 7:30 AM EST Dallas Camejo MD POINT OF CARE TEST O RDERABLES [facility]OSPITAL LAB See Below * (ABNORMAL) Complete Blood Count WITHOUT Differential - STAT (11/17/2024 5:00 AM EST) [facility] White Blood Cell Count 11.2(H) 4.0 - 11.0 Thou/uL 11/17/2024 5:26 AM [facility] Platelet Count 373 150 - 450 Thou/uL 11/17/2024 5:26 AM [facility] Hemoglobin 8.2(L) 13.0 - 17.7 g/dL 11/17/2024 5:26 AM [facility] Hematocrit 25.0(L) 39.0 - 54.0 % 11/17/2024 5:26 AM [facility] Red Blood Cell Count 2.94(L) 4.50 - 6.20 Mil/uL 11/17/2024 5:26 AM [facility] MCV 85 80 - 100 fL 11/17/2024 5:26 AM [facility] MCH 27.9 27.0 - 31.0 pg 11/17/2024 5:26 AM [facility] MCHC 32.8 30.0 - 36.0 g/dL 11/17/2024 5:26 AM [facility] RDW 16.5(H) 11.5 - 14.5 % 11/17/2024 5:26 AM [facility] MPV 10.4 7.5 - 12.5 fL 11/17/2024 5:26 AM [facility] Blood Blood specimen / Unknown 11/17/2024 5:00 AM EST 11/17/2024 5:09 AM EST Adithya Sheriff PA-C LAB BLOOD ORDERAB LES [facility] [address] [place] [address], [facility] [address] [place] [address] * (ABNORMAL) Comprehensive Metabolic Panel (AM) (11/17/2024 5:00 AM EST) Glucose 171(H) 65 - 99 mg/dL 11/17/2024 6:55 AM [facility] Comment:Fasting: <100 mg/dL, Non-Fasting: <200 mg/dL (ADA 2004) Blood Urea Nitrogen (BUN) 54(H) 8 - 21 mg/dL 11/17/2024 6:55 AM [facility] Creatinine 1.8(H) 0.5 - 1.3 mg/dL 11/17/2024 6:55 AM [facility] eGFR 42(L) >59 11/17/2024 6:55 AM [facility] Comment:CKD-EPI (2020) in mL /min/1.73 sq meters. Sodium 128(L) 136 - 145 mmol/L 11/17/2024 6:55 AM [facility] Potassium 3.7 3.4 - 5.3 mmol/L 11/17/2024 6:55 AM [facility] Chloride 87(L) 98 - 107 mmol/L 11/17/2024 6:55 AM [facility] CO2 30 22 - 33 mmol/L 11/17/2024 6:55 AM [facility] Calcium 9.4 8.7 - 10.5 mg/dL 11/17/2024 6:55 AM [facility] Alkaline Phosphatase 117 45 - 128 U/L 11/17/2024 6:55 AM [facility] Aspartate Aminotrans (AST) 24 10 - 55 U/L 11/17/2024 6:55 AM [facility] Alanine Aminotrans (ALT) 19 10 - 55 U/L 11/17/2024 6:55 AM [facility] Bilirubin, Total 0.2 0.2 - 1.0 mg/dL 11/17/2024 6:55 AM [facility] Protein, Total 6.6 6.3 - 8.3 g/dL 11/17/2024 6:55 AM [facility] Albumin 2.9(L) 3.4 - 4.8 g/dL 11/17/2024 6:55 AM [facility] BUN/Creatinine Ratio 30(H) 10.0 - 25.0 Ratio 11/17/2024 6:55 AM [facility] Globulin 3.7 1.5 - 3.9 g/dL 11/17/2024 6:55 AM [facility] Albumin/Globulin Ratio 0.8(L) 1.0 - 3.0 Ratio 11/17/2024 6:55 AM [facility] Anion Gap 11 7 - 17 11/17/2024 6:55 AM [facility] Blood (Plasma/Serum) 11/17/2024 5:00 AM EST 11/17/2024 5:09 AM EST Adithya Sheriff PA-C [place] [address], [place] [address] * (ABNORMAL) POCT Glucose, Fingerstick (11/16/2024 8:09 [...] CARE TEST O RDERABLES Performing Organization Address [facility] Phone Number [facility] See Below * (ABNORMAL) POCT Glucose, Fingerstick (11/16/2024 12:04 PM EST) POC Glucose 246(H) 65 - 99 mg/dL 11/16/2024 12:16 PM EST Blood specimen / Unknown 11/16/2024 12:04 PM EST 11/16/2024 12:16 PM EST Dallas Camejo MD POINT OF CARE TEST O RDERABLES Performing Organization Address [facility] Number [facility] See Below * (ABNORMAL) POCT Glucose, Fingerstick (11/16/2024 7:37 AM EST) POC Glucose 211(H) 65 - 99 mg/dL 11/16/2024 7:52 AM EST Blood specimen / Unknown 11/16/2024 7:37 AM EST 11/16/2024 7:52 AM EST Dallas Camejo MD POINT OF CARE TEST O RDERABLES Performing Organization Address [facility] Number [facility] See Below * Phosphorus (AM) (11/16/2024 7:23 AM EST) Phosphorus 3.8 2.7 - 4.5 mg/dL 11/16/2024 8:34 AM EST [facility] Blood (Plasma/Serum) 11/16/2024 7:23 AM EST 11/16/2024 7:51 AM EST Maddison Villalpando MD LAB BLOOD ORDERABLES Performing Organization Address [facility] Number [address] [address], [address] [address] * Magnesium (AM) (11/16/2024 7:23 AM EST) Magnesium 2.1 1.6 - 2.7 mg/dL 11/16/2024 8:34 AM [facility] Blood (Plasma/Serum) 11/16/2024 7:23 AM EST 11/16/2024 7:51 AM EST Maddison Villalpando MD LAB BLOOD ORDERABLES [address] [address], [address] [address] * (ABNORMAL) Basic Metabolic Panel (AM) (11/16/2024 7:23 AM EST) Glucose 190(H) 65 - 99 mg/dL 11/16/2024 8:34 AM [facility] Comment:Fasting: <100 mg/dL, Non-Fasting: <200 mg/dL (ADA 2004) Blood Urea Nitrogen (BUN) 55(H) 8 - 21 mg/dL 11/16/2024 8:34 AM [facility] Creatinine 1.9(H) 0.5 - 1.3 mg/dL 11/16/2024 8:34 AM [facility] eGFR 39(L) >59 11/16/2024 8:34 AM [facility] Comment:CKD-EPI (2020) in mL /min/1.73 sq meters. Sodium 130(L) 136 - 145 mmol/L 11/16/2024 8:34 AM [facility] Potassium 3.6 3.4 - 5.3 mmol/L 11/16/2024 8:34 AM [facility] Chloride 87(L) 98 - 107 mmol/L 11/16/2024 8:34 AM [facility] CO2 32 22 - 33 mmol/L 11/16/2024 8:34 AM [facility] Anion Gap 11 7 - 17 11/16/2024 8:34 AM [facility] Calcium 9.1 8.7 - 10.5 mg/dL 11/16/2024 8:34 AM [facility] BUN/Creatinine Ratio 29(H) 10.0 - 25.0 Ratio 11/16/2024 8:34 AM [facility] Blood (Plasma/Serum) 11/16/2024 7:23 AM EST 11/16/2024 7:51 AM EST Maddison Villalpando MD LAB BLOOD ORDERABLES Performing Organization Address City/[facility]/ZIP Co de Phone Number [address] [address], [address] [address] * (ABNORMAL) Complete Blood Count WITHOUT Differential - in AM (11/16/2024 7:23 AM EST) White Blood Cell Count 10.7 4.0 - 11.0 Thou/uL 11/16/2024 8:10 AM [facility] Platelet Count 408 150 - 450 Thou/uL 11/16/2024 8:10 AM [facility] Hemoglobin 8.1(L) 13.0 - 17.7 g/dL 11/16/2024 8:10 AM [facility] Hematocrit 25.6(L) 39.0 - 54.0 % 11/16/2024 8:10 AM [facility] Red Blood Cell Count 2.97(L) 4.50 - 6.20 Mil/uL 11/16/2024 8:10 AM [facility] MCV 86 80 - 100 fL 11/16/2024 8:10 AM [facility] MCH 27.3 27.0 - 31.0 pg 11/16/2024 8:10 AM [facility] MCHC 31.6 30.0 - 36.0 g/dL 11/16/2024 8:10 AM [facility] RDW 16.8(H) 11.5 - 14.5 % 11/16/2024 8:10 AM [facility] MPV 10.4 7.5 - 12.5 fL 11/16/2024 8:10 AM [facility] Blood Blood specimen / Unknown 11/16/2024 7:23 AM EST 11/16/2024 7:51 AM EST Maddison Villalpando MD LAB BLOOD ORDERABLES [address] [address], [address] [address] * Type and Screen (11/16/2024 7:23 AM EST) ABO/Rh A POSITIVE 11/16/2024 8:39 AM [facility] Antibody Screen NEGATIVE 11/16/2024 8:53 AM [facility] Specimen Expiration 11/19/2024 11/16/2024 8:39 AM [facility] Unit Number [id number] 11/16/2024 9:12 AM [facility] Blood Component Type LEUKOREDUCED RED CELLS 11/16/2024 9:12 AM [facility] Unit Division 00 11/16/2024 9:12 AM [facility] Unit Status REL FROM ALLOC 2:05 AM [facility] Transfusion Status OK TO TRANSFUSE 11/16/2024 9:12 AM [facility] Crossmatch Result Electronically Compatible 11/16/2024 9:12 AM [facility] Unit Number [id number] 11/16/2024 9:12 AM [facility] Blood Component Type LEUKOREDUCED RED CELLS 11/16/2024 9:12 AM [facility] Unit Division 00 11/16/2024 9:12 AM [facility] Unit Status REL FROM ALLOC 2:05 AM [facility] Transfusion Status OK TO TRANSFUSE 11/16/2024 9:12 AM [facility] Crossmatch Result Electronically Compatible 11/16/2024 9:12 AM [facility] Unit Number [id number] 11/16/2024 9:12 AM [facility] Blood Component Type LEUKOREDUCED RED CELLS 11/16/2024 9:12 AM [facility] Unit Division 00 11/16/2024 9:12 AM [facility] Unit Status REL FROM ALLOC 2:05 AM [facility] Transfusion Status OK TO TRANSFUSE 11/16/2024 9:12 AM [facility] Crossmatch Result Electronically Compatible 11/16/2024 9:12 AM [facility] Unit Number [id number] 11/16/2024 9:12 AM [facility] Blood Component Type LEUKOREDUCED RED CELLS 11/16/2024 9:12 AM EST [facility] Unit Division 00 11/16/2024 9:12 AM EST [facility] Unit Status REL FROM ALLOC 2:05 AM EST [facility] Transfusion Status OK TO TRANSFUSE 11/16/2024 9:12 AM EST [facility] Crossmatch Result Electronically Compatible 11/16/2024 9:12 AM EST [facility] Blood Blood specimen / Unknown 11/16/2024 7:23 AM EST 11/16/2024 7:57 AM EST Comment:Blood Cristina Rodriguez APRN BLOOD BANK TEST OR DERABLES Performing Organization Address City/[facility]/ZIP Co de Phone Number [facility] [place] [place] [address] * (ABNORMAL) POCT Glucose, Fingerstick (11/15/2024 8:14 PM EST) POC Glucose 330(H) 65 - 99 mg/dL 11/15/2024 8:15 PM EST Blood specimen / Unknown 11/15/2024 8:14 PM EST 11/15/2024 8:15 PM EST Dallas Camejo MD POINT OF CARE TEST O RDERABLES Performing Organization Address City/[facility]/ZIP Co de Phone Number [facility] See Below * (ABNORMAL) POCT [...] Cristina Rodriguez APRN BLOOD BANK PRODUCT ORDERABLES HOSPITAL LAB See Below * Phosphorus (AM) (11/15/2024 8:08 AM EST) Phosphorus 4.3 2.7 - 4.5 mg/dL 11/15/2024 9:21 AM EST [facility] Blood (Plasma/Serum) 11/15/2024 8:08 AM EST 11/15/2024 8:57 AM EST Maddison Villalpando MD LAB BLOOD ORDERABLES Performing Organization Address City/[facility]/[place] [address], [address] [address] * Magnesium (AM) (11/15/2024 8:08 AM EST) Magnesium 2.1 1.6 - 2.7 mg/dL 11/15/2024 9:21 AM EST [facility] Blood (Plasma/Serum) 11/15/2024 8:08 AM EST 11/15/2024 8:57 AM EST Maddison Villalpando MD LAB BLOOD ORDERABLES [address] [address], [address] [address] * (ABNORMAL) Basic Metabolic Panel (AM) (11/15/2024 8:08 AM EST) Glucose 218(H) 65 - 99 mg/dL 11/15/2024 9:21 AM [facility] Comment:Fasting: <100 mg/dL, Non-Fasting: <200 mg/dL (ADA 2004) Blood Urea Nitrogen (BUN) 59(H) 8 - 21 mg/dL 11/15/2024 9:21 AM [facility] Creatinine 1.8(H) 0.5 - 1.3 mg/dL 11/15/2024 9:21 AM [facility] eGFR 42(L) >59 11/15/2024 9:21 AM [facility] Comment:CKD-EPI (2020) in mL /min/1.73 sq meters. Sodium 131(L) 136 - 145 mmol/L 11/15/2024 9:21 AM [facility] Potassium 3.9 3.4 - 5.3 mmol/L 11/15/2024 9:21 AM [facility] Chloride 85(L) 98 - 107 mmol/L 11/15/2024 9:21 AM [facility] CO2 34(H) 22 - 33 mmol/L 11/15/2024 9:21 AM [facility] Anion Gap 12 7 - 17 11/15/2024 9:21 AM [facility] Calcium 9.4 8.7 - 10.5 mg/dL 11/15/2024 9:21 AM [facility] BUN/Creatinine Ratio 33(H) 10.0 - 25.0 Ratio 11/15/2024 9:21 AM [facility] Blood (Plasma/Serum) 11/15/2024 8:08 AM EST 11/15/2024 8:57 AM EST Maddison Villalpando MD LAB BLOOD ORDERABLES [address] [address], [facility] [address] [place] [address] * (ABNORMAL) Complete Blood Count WITHOUT Differential - in AM (11/15/2024 8:08 AM EST) White Blood Cell Count 11.8(H) 4.0 - 11.0 Thou/uL 11/15/2024 9:06 AM [facility] Platelet Count 485(H) 150 - 450 Thou/uL 11/15/2024 9:06 AM [facility] Hemoglobin 8.9(L) 13.0 - 17.7 g/dL 11/15/2024 9:06 AM [facility] Hematocrit 28.9(L) 39.0 - 54.0 % 11/15/2024 9:06 AM [facility] Red Blood Cell Count 3.27(L) 4.50 - 6.20 Mil/uL 11/15/2024 9:06 AM [facility] MCV 88 80 - 100 fL 11/15/2024 9:06 AM [facility] MCH 27.2 27.0 - 31.0 pg 11/15/2024 9:06 AM [facility] MCHC 30.8 30.0 - 36.0 g/dL 11/15/2024 9:06 AM [facility] RDW 16.8(H) 11.5 - 14.5 % 11/15/2024 9:06 AM [facility] MPV 10.4 7.5 - 12.5 fL 11/15/2024 9:06 AM [facility] Blood Blood specimen / Unknown 11/15/2024 8:08 AM EST 11/15/2024 8:57 AM EST Maddison Villalpando MD LAB BLOOD ORDERABLES [address] [address], [address] [address] * (ABNORMAL) proBNP, N-terminal (11/15/2024 8:08 AM EST) proBNP, N-terminal 429(H) <125 pg/mL 11/15/2024 9:21 AM EST [facility] Blood Plasma specimen / Unknown 11/15/2024 8:08 AM EST 11/15/2024 8:57 AM EST Valencia Lau TECHNICAL SUPPORT PROFESSIONAL LAB BLOOD ORDERAB LES Performing Organization Address [facility] Co de Phone Number [address] [address], [address] [address] * (ABNORMAL) POCT Glucose, Fingerstick (11/15/2024 7:36 [...] - STAT (11/14/2024 10:31 AM EST) Pathologist [facility] White Blood Cell Count 10.6 4.0 - 11.0 Thou/uL 11/14/2024 11:21 AM [facility] Platelet Count 471(H) 150 - 450 Thou/uL 11/14/2024 11:21 AM [facility] Hemoglobin 8.9(L) 13.0 - 17.7 g/dL 11/14/2024 11:21 AM [facility] Hematocrit 28.9(L) 39.0 - 54.0 % 11/14/2024 11:21 AM [facility] Red Blood Cell Count 3.25(L) 4.50 - 6.20 Mil/uL 11/14/2024 11:21 AM [facility] MCV 89 80 - 100 fL 11/14/2024 11:21 AM [facility] MCH 27.4 27.0 - 31.0 pg 11/14/2024 11:21 AM [facility] MCHC 30.8 30.0 - 36.0 g/dL 11/14/2024 11:21 AM [facility] RDW 17.1(H) 11.5 - 14.5 % 11/14/2024 11:21 AM [facility] MPV 10.3 7.5 - 12.5 fL 11/14/2024 11:21 AM [facility] Blood Blood specimen / Unknown 11/14/2024 10:31 AM EST 11/14/2024 11:15 AM EST Maddison Villalpando MD LAB BLOOD ORDERABLES Performing Organization Address [facility] [place] [address], [place] [address] * (ABNORMAL) Phosphorus (Routine) (11/14/2024 10:31 AM EST) Phosphorus 6.1(H) 2.7 - 4.5 mg/dL 11/14/2024 11:39 AM EST [facility] Blood (Plasma/Serum) 11/14/2024 10:31 AM EST 11/14/2024 11:15 AM EST Maddison Villalpando MD LAB BLOOD ORDERABLES Performing Organization Address [facility] [place] [address], [place] [address] * Magnesium (Routine) (11/14/2024 10:31 AM EST) Magnesium 2.1 1.6 - 2.7 mg/dL 11/14/2024 11:39 AM EST [facility] Blood (Plasma/Serum) 11/14/2024 10:31 AM EST 11/14/2024 11:15 AM EST Maddison Villalpando MD LAB BLOOD ORDERABLES Performing Organization Address City/[facility] [place] [address], [place] [id number] * (ABNORMAL) Basic Metabolic Panel (STAT) (11/14/2024 10:31 AM EST) Glucose 319(H) 65 - 99 mg/dL 11/14/2024 11:39 AM EST [facility] Comment:Fasting: <100 mg/dL, Non-Fasting: <200 mg/dL (ADA 2005) Blood Urea Nitrogen (BUN) 65(H) 8 - 21 mg/dL 11/14/2024 11:39 AM [facility] Creatinine 2.1(H) 0.5 - 1.3 mg/dL 11/14/2024 11:39 AM [facility] eGFR 35(L) >59 11/14/2024 11:39 AM [facility] Comment:CKD-EPI (2020) in mL /min/1.73 sq meters. Sodium 132(L) 136 - 145 mmol/L 11/14/2024 11:39 AM [facility] Potassium 4.0 3.4 - 5.3 mmol/L 11/14/2024 11:39 AM [facility] Chloride 85(L) 98 - 107 mmol/L 11/14/2024 11:39 AM [facility] CO2 34(H) 22 - 33 mmol/L 11/14/2024 11:39 AM [facility] Anion Gap 13 7 - 17 11/14/2024 11:39 AM [facility] Calcium 9.4 8.7 - 10.5 mg/dL 11/14/2024 11:39 AM [facility] BUN/Creatinine Ratio 31(H) 10.0 - 25.0 Ratio 11/14/2024 11:39 AM [facility] Blood (Plasma/Serum) 11/14/2024 10:31 AM EST 11/14/2024 11:15 AM EST Maddison Villalpando MD LAB BLOOD ORDERABLES Performing Organization Address [facility] [place] [address], [place] [phone] * (ABNORMAL) POCT Glucose, Fingerstick (11/14/2024 7:45 AM EST) POC Glucose 224(H) 65 - 99 mg/dL 11/14/2024 7:46 AM EST Blood specimen / Unknown 11/14/2024 7:45 AM EST 11/14/2024 7:46 AM EST Dallas Camejo MD POINT OF CARE TEST O RDERABLES Performing Organization Address City/State/[facility] de Phone Number [facility] See Below * (ABNORMAL) POCT Glucose, Fingerstick (11/13/2024 11:30 PM EST) POC Glucose 268(H) 65 - 99 mg/dL 11/13/2024 11:30 PM EST Blood specimen / Unknown 11/13/2024 11:30 PM EST 11/13/2024 11:31 PM EST Dallas Camejo MD POINT OF CARE TEST O RDERABLES Performing Organization Address [facility] de Phone Number [facility] See Below * (ABNORMAL) POCT Glucose, Fingerstick (11/13/2024 9:19 PM EST) POC Glucose 366(H) 65 - 99 mg/dL 11/13/2024 9:20 PM EST Blood specimen / Unknown 11/13/2024 9:19 PM EST 11/13/2024 9:20 PM EST Dallas Camejo MD POINT OF CARE TEST O RDERABLES Performing Organization Address [facility] Phone Number [facility] See Below * (ABNORMAL) POCT Glucose, Fingerstick (11/13/2024 4:45 PM EST) POC Glucose 196(H) 65 - 99 mg/dL 11/13/2024 4:50 PM EST Blood specimen / Unknown 11/13/2024 4:45 PM EST 11/13/2024 4:50 PM EST Dallas Camejo MD POINT OF CARE TEST O [place]UC[place] Performing Organization Address [facility] Co de Phone Number HOSPITAL LAB See Below * (ABNORMAL) POCT Glucose, Fingerstick (11/13/2024 11:54 AM EST) POC Glucose 232(H) 65 - 99 mg/dL 11/13/2024 11:55 AM EST Blood specimen / Unknown 11/13/2024 11:54 AM EST 11/13/2024 11:55 AM EST Dallas Camejo MD POINT OF CARE TEST O RDERABLES Performing Organization Address [facility] Phone Number [facility] LAB See Below * (ABNORMAL) POCT Glucose, Fingerstick (11/13/2024 8:12 AM EST) POC Glucose 159(H) 65 - 99 mg/dL 11/13/2024 8:15 AM EST Blood specimen / Unknown 11/13/2024 8:12 AM EST 11/13/2024 8:15 AM EST Dallas Camejo MD POINT OF CARE TEST O RDERABLES Performing Organization Address [facility] Number [facility] LAB See Below * (ABNORMAL) proBNP, N-terminal (11/13/2024 7:30 AM EST) proBNP, N-terminal 994(H) <125 pg/mL 11/13/2024 11:05 AM EST [facility] Plasma specimen / Unknown 11/13/2024 7:30 AM EST 11/13/2024 8:09 AM EST Maddison Villalpando MD LAB BLOOD ORDERABLES Performing Organization Address [facility] [place] [address], [place] [address] * (ABNORMAL) Phosphorus (AM) (11/13/2024 7:30 AM EST) Phosphorus 4.9(H) 2.7 - 4.5 mg/dL 11/13/2024 8:45 AM EST [facility] Blood (Plasma/Serum) 11/13/2024 7:30 AM EST 11/13/2024 8:09 AM EST Maddison Villalpando MD LAB BLOOD ORDERABLES Performing Organization Address [facility] [place] [address], [place] [address] * Magnesium (AM) (11/13/2024 7:30 AM EST) Pathologist [facility] Magnesium 1.7 1.6 - 2.7 mg/dL 11/13/2024 8:45 AM [facility] Blood (Plasma/Serum) 11/13/2024 7:30 AM EST 11/13/2024 8:09 AM EST Maddison Villalpando MD [place] [address], [place] [address] * (ABNORMAL) Complete Blood Count WITHOUT Differential - in AM (11/13/2024 7:30 AM EST) Pathologist [facility] White Blood Cell Count 11.8(H) 4.0 - 11.0 Thou/uL 11/13/2024 8:28 AM [facility] Platelet Count 486(H) 150 - 450 Thou/uL 11/13/2024 8:28 AM [facility] Hemoglobin 9.2(L) 13.0 - 17.7 g/dL 11/13/2024 8:28 AM [facility] Hematocrit 29.8(L) 39.0 - 54.0 % 11/13/2024 8:28 AM [facility] Red Blood Cell Count 3.34(L) 4.50 - 6.20 Mil/uL 11/13/2024 8:28 AM [facility] MCV 89 80 - 100 fL 11/13/2024 8:28 AM [facility] MCH 27.5 27.0 - 31.0 pg 11/13/2024 8:28 AM [facility] MCHC 30.9 30.0 - 36.0 g/dL 11/13/2024 8:28 AM [facility] RDW 16.9(H) 11.5 - 14.5 % 11/13/2024 8:28 AM [facility] MPV 9.8 7.5 - 12.5 fL 11/13/2024 8:28 AM [facility] Blood Blood specimen / Unknown 11/13/2024 7:30 AM EST 11/13/2024 8:09 AM EST Maddison Villalpando MD LAB BLOOD ORDERABLES [address] [address], [address] [address] * (ABNORMAL) Basic Metabolic Panel (AM) (11/13/2024 7:30 AM EST) Glucose 154(H) 65 - 99 mg/dL 11/13/2024 8:45 AM [facility] Comment:Fasting: <100 mg/dL, Non-Fasting: <200 mg/dL (ADA 2004) Blood Urea Nitrogen (BUN) 44(H) 8 - 21 mg/dL 11/13/2024 8:45 AM [facility] Creatinine 1.7(H) 0.5 - 1.3 mg/dL 11/13/2024 8:45 AM [facility] eGFR 45(L) >59 11/13/2024 8:45 AM [facility] Comment:CKD-EPI (2020) in mL /min/1.73 sq meters. Sodium 140 136 - 145 mmol/L 11/13/2024 8:45 AM [facility] Potassium 3.6 3.4 - 5.3 mmol/L 11/13/2024 8:45 AM [facility] Chloride 91(L) 98 - 107 mmol/L 11/13/2024 8:45 AM [facility] CO2 35(H) 22 - 33 mmol/L 11/13/2024 8:45 AM [facility] Anion Gap 14 7 - 17 11/13/2024 8:45 AM [facility] Calcium 9.7 8.7 - 10.5 mg/dL 11/13/2024 8:45 AM [facility] BUN/Creatinine Ratio 26(H) 10.0 - 25.0 Ratio 11/13/2024 8:45 AM [facility] Blood (Plasma/Serum) 11/13/2024 7:30 AM EST 11/13/2024 8:09 AM EST Maddison Villalpando MD LAB BLOOD ORDERABLES Performing Organization Address City/[facility]/ZIP Co de Phone Number [address] [address], [address] [address] * (ABNORMAL) POCT Glucose, Fingerstick (11/13/2024 3:59 AM EST) POC Glucose 156(H) 65 - 99 mg/dL 11/13/2024 4:03 AM EST Blood specimen / Unknown 11/13/2024 3:59 AM EST 11/13/2024 4:03 AM EST Dallas Camejo MD POINT OF CARE TEST O RDERABLES Performing Organization Address [facility] Co de Phone Number [facility] LAB See Below * (ABNORMAL) POCT Glucose, Fingerstick (11/13/2024 12:27 AM EST) POC Glucose 139(H) 65 - 99 mg/dL 11/13/2024 12:31 AM EST Blood specimen / Unknown 11/13/2024 12:27 AM EST 11/13/2024 12:31 AM EST Dallas Camejo MD POINT OF CARE TEST O RDERABLES Performing Organization Address City/[facility]/ZIP Co de Phone Number [facility] LAB See Below * (ABNORMAL) POCT Glucose, Fingerstick (11/12/2024 8:32 PM EST) POC Glucose 248(H) 65 - 99 mg/dL 11/12/2024 8:33 PM EST Blood specimen / Unknown 11/12/2024 8:32 PM EST 11/12/2024 8:33 PM EST Dallas Camejo MD POINT OF CARE TEST O RDERABLES [facility] LAB See Below * (ABNORMAL) POCT [...] * PM DUAL LEAD EVAL WITH PROGRAMMING, [id number] (11/12/2024 1:15 PM EST) Date Time Interrogation Session [id number] 4,157 PACEART Implantable Pulse Generator Control Officer Manager [employer] PACEART Implantable Pulse Generator Model [id number] [employer] PACEART Implantable Pulse Generator Serial Number [id number] PACEART Implantable Pulse Generator Type Pacemaker PACEART [...] reset 99.97 % PACEART Otf Statistic AP FILLING LAYER UP Percent 76.74 % PACEART Otf Statistic FILLING LAYER UP Percent 23.23 % PACEART Otf Statistic AP VS Percent 0.01 % PACEART Otf Statistic VS Percent 0.01 % PACEART AT/AF [place] Percent 0 % PACEART Episode Statistic Recent [...] CARE TEST O RDERABLES Performing Organization Address City/[facility] Co de Phone Number HOSPITAL LAB See Below * Phosphorus (11/12/2024 5:00 AM EST) Phosphorus 4.5 2.7 - 4.5 mg/dL 11/12/2024 6:01 AM EST [facility] Blood (Plasma/Serum) 11/12/2024 5:00 AM EST 11/12/2024 5:22 AM EST Luis Degroot MD LAB BLOOD ORDERABLES Performing Organization Address [facility] [place] [address], [place] [address] * Magnesium (11/12/2024 5:00 AM EST) Magnesium 1.8 1.6 - 2.7 mg/dL 11/12/2024 6:01 AM [facility] Blood (Plasma/Serum) 11/12/2024 5:00 AM EST 11/12/2024 5:22 AM EST Luis Degroot MD LAB BLOOD ORDERABLES Performing Organization Address [facility] [place] [address], [place] [address] * (ABNORMAL) Complete Blood Count, WITHOUT Differential (routine) (11/12/2024 5:00 AM EST) White Blood Cell Count 11.1(H) 4.0 - 11.0 Thou/uL 11/12/2024 5:47 AM [facility] Platelet Count 456(H) 150 - 450 Thou/uL 11/12/2024 5:47 AM [facility] Hemoglobin 8.1(L) 13.0 - 17.7 g/dL 11/12/2024 5:47 AM [facility] Hematocrit 26.3(L) 39.0 - 54.0 % 11/12/2024 5:47 AM [facility] Red Blood Cell Count 2.94(L) 4.50 - 6.20 Mil/uL 11/12/2024 5:47 AM [facility] MCV 90 80 - 100 fL 11/12/2024 5:47 AM [facility] MCH 27.6 27.0 - 31.0 pg 11/12/2024 5:47 AM [facility] MCHC 30.8 30.0 - 36.0 g/dL 11/12/2024 5:47 AM [facility] RDW 16.9(H) 11.5 - 14.5 % 11/12/2024 5:47 AM [facility] MPV 9.8 7.5 - 12.5 fL 11/12/2024 5:47 AM [facility] Blood Blood specimen / Unknown 11/12/2024 5:00 AM EST 11/12/2024 5:22 AM EST Luis Degroot MD [place] [address], [place] [address] * (ABNORMAL) Basic Metabolic Panel (11/12/2024 5:00 AM EST) Glucose 126(H) 65 - 99 mg/dL 11/12/2024 6:01 AM [facility] Comment:Fasting: <100 mg/dL, Non-Fasting: <200 mg/dL (ADA 2004) Blood Urea Nitrogen (BUN) 44(H) 8 - 21 mg/dL 11/12/2024 6:01 AM [facility] Creatinine 1.6(H) 0.5 - 1.3 mg/dL 11/12/2024 6:01 AM [facility] eGFR 48(L) >59 11/12/2024 6:01 AM [facility] Comment:CKD-EPI (2020) in mL /min/1.73 sq meters. Sodium 138 136 - 145 mmol/L 11/12/2024 6:01 AM [facility] Potassium 3.7 3.4 - 5.3 mmol/L 11/12/2024 6:01 AM [facility] Chloride 96(L) 98 - 107 mmol/L 11/12/2024 6:01 AM [facility] CO2 30 22 - 33 mmol/L 11/12/2024 6:01 AM [facility] Anion Gap 12 7 - 17 11/12/2024 6:01 AM [facility] Calcium 9.1 8.7 - 10.5 mg/dL 11/12/2024 6:01 AM [facility] BUN/Creatinine Ratio 28(H) 10.0 - 25.0 Ratio 11/12/2024 6:01 AM [facility] Blood (Plasma/Serum) 11/12/2024 5:00 AM EST 11/12/2024 5:22 AM EST Luis Degroot MD [place] [address], [place] [address] * (ABNORMAL) POCT Glucose, Fingerstick (11/12/2024 4:51 [...] CARE TEST O RDERALUCILLE Performing Organization Address [facility] LAB See Below * (ABNORMAL) POCT Glucose, Fingerstick (11/12/2024 12:21 AM EST) POC Glucose 130(H) 65 - 99 mg/dL 11/12/2024 12:22 AM EST Blood specimen / Unknown 11/12/2024 12:21 AM EST 11/12/2024 12:22 AM EST Dallas Camejo MD POINT OF CARE TEST O JOSEPH Performing Organization Address [facility] LAB See Below * (ABNORMAL) POCT Glucose, Fingerstick (11/11/2024 9:17 PM EST) POC Glucose 224(H) 65 - 99 mg/dL 11/11/2024 9:21 PM EST Blood specimen / Unknown 11/11/2024 9:17 PM EST 11/11/2024 9:21 PM EST Dallas Cmaejo MD POINT OF CARE TEST O RDERALUCILLE Performing Organization Address [facility] LAB See Below * (ABNORMAL) POCT Glucose, Fingerstick (11/11/2024 5:06 PM EST) POC Glucose 149(H) 65 - 99 mg/dL 11/11/2024 5:37 PM EST Blood specimen / Unknown 11/11/2024 5:06 PM EST 11/11/2024 5:37 PM EST Dallas Camejo MD POINT OF CARE TEST O RDGHANSHYAM Performing Organization Address [facility] LAB See Below * PM DUAL LEAD EVAL WITH PROGRAMMING, [id number] (11/11/2024 4:33 PM EST) Date Time Interrogation Session [id number] 1,358 PACEART Implantable Pulse Generator Control Officer Manager [employer] PACEART Implantable Pulse Generator Model [id number] Jaime ESCOBAR PACEART Implantable Pulse Generator Serial Number [id number] PACEART Implantable Pulse Generator Type Pacemaker PACEART [...] reset 89.06 % PACEART Otf Statistic AP FILLING LAYER UP Percent 62.37 % PACEART Otf Statistic FILLING LAYER UP Percent 26.83 % PACEART Otf Statistic AP VS Percent 8.97 % PACEART Otf Statistic VS Percent 1.83 % PACEART AT/AF [place] Percent 0 % PACEART Episode Statistic Recent [...] ordered for function. Presenting rhythm: AP / FILLING LAYER UP @ 60 bpm. Underlying rhythm: SB @ [...] inserted atraumatically into the esophagus by the hydraulic press tender. With the patient in a supine position [...] 2.7 - 4.5 mg/dL 11/11/2024 3:00 PM [facility] Blood (Plasma/Serum) 11/11/2024 2:00 PM EST 11/11/2024 2:19 PM EST Nani Hollis PA-C [place] [address], [place] [address] * Magnesium (11/11/2024 2:00 PM EST) Pathologist [facility] Magnesium 1.8 1.6 - 2.7 mg/dL 11/11/2024 3:00 PM [facility] Blood (Plasma/Serum) 11/11/2024 2:00 PM EST 11/11/2024 2:19 PM EST Nani Hollis PA-C LAB BLOOD ORDERABLES Performing Organization Address City/[facility]/[place] [address], [place] [address] * (ABNORMAL) Basic Metabolic Panel (11/11/2024 2:00 PM EST) Glucose 124(H) 65 - 99 mg/dL 11/11/2024 3:00 PM [facility] Comment:Fasting: <100 mg/dL, Non-Fasting: <200 mg/dL (ADA 2004) Blood Urea Nitrogen (BUN) 49(H) 8 - 21 mg/dL 11/11/2024 3:00 PM [facility] Creatinine 1.7(H) 0.5 - 1.3 mg/dL 11/11/2024 3:00 PM [facility] eGFR 45(L) >59 11/11/2024 3:00 PM [facility] Comment:CKD-EPI (2020) in mL /min/1.73 sq meters. Sodium 139 136 - 145 mmol/L 11/11/2024 3:00 PM [facility] Potassium 3.4 3.4 - 5.3 mmol/L 11/11/2024 3:00 PM [facility] Chloride 97(L) 98 - 107 mmol/L 11/11/2024 3:00 PM [facility] CO2 30 22 - 33 mmol/L 11/11/2024 3:00 PM [facility] Anion Gap 12 7 - 17 11/11/2024 3:00 PM [facility] Calcium 9.0 8.7 - 10.5 mg/dL 11/11/2024 3:00 PM [facility] BUN/Creatinine Ratio 29(H) 10.0 - 25.0 Ratio 11/11/2024 3:00 PM [facility] Blood (Plasma/Serum) 11/11/2024 2:00 PM EST 11/11/2024 2:19 PM EST Nani Hollis PA-C [place] [address], [place] [address] * (ABNORMAL) POCT Glucose, Fingerstick (11/11/2024 11:53 [...] CARE TEST O RDERABLES Performing Organization Address City/[facility]/ZIP Co de Phone Number [facility] LAB See Below * (ABNORMAL) POCT Glucose, Fingerstick (11/11/2024 2:35 AM EST) Pathologist [facility] POC Glucose 174(H) 65 - 99 mg/dL 11/11/2024 3:47 AM EST Blood specimen / Unknown 11/11/2024 2:35 AM EST 11/11/2024 3:46 AM EST Dallas Camejo MD POINT OF CARE TEST O RDERALUCILLE Performing Organization Address [facility] Co de Phone Number [facility] LAB See Below * (ABNORMAL) proBNP, N-terminal (11/11/2024 2:00 AM EST) Pathologist [facility] proBNP, N-terminal 2,964(H) <125 pg/mL 11/11/2024 3:18 AM EST [facility] Blood Plasma specimen / Unknown 11/11/2024 2:00 AM EST 11/11/2024 2:53 AM EST Nani Hollis PA-C LAB BLOOD ORDERABLES Performing Organization Address [facility] [place] [address], [place] [address] * (ABNORMAL) Complete Blood Count, WITHOUT Differential (routine) (11/11/2024 2:00 AM EST) Pathologist [facility] White Blood Cell Count 13.2(H) 4.0 - 11.0 Thou/uL 11/11/2024 2:57 AM EST [facility] Platelet Count 460(H) 150 - 450 Thou/uL 11/11/2024 2:57 AM [facility] Hemoglobin 8.2(L) 13.0 - 17.7 g/dL 11/11/2024 2:57 AM [facility] Hematocrit 26.1(L) 39.0 - 54.0 % 11/11/2024 2:57 AM [facility] Red Blood Cell Count 2.91(L) 4.50 - 6.20 Mil/uL 11/11/2024 2:57 AM [facility] MCV 90 80 - 100 fL 11/11/2024 2:57 AM [facility] MCH 28.2 27.0 - 31.0 pg 11/11/2024 2:57 AM [facility] MCHC 31.4 30.0 - 36.0 g/dL 11/11/2024 2:57 AM [facility] RDW 17.0(H) 11.5 - 14.5 % 11/11/2024 2:57 AM [facility] MPV 9.8 7.5 - 12.5 fL 11/11/2024 2:57 AM [facility] Blood Blood specimen / Unknown 11/11/2024 2:00 AM EST 11/11/2024 2:53 AM EST Nani PATTON-C [place] [address], [place] [address] * (ABNORMAL) Phosphorus (11/11/2024 2:00 AM EST) Phosphorus 4.7(H) 2.7 - 4.5 mg/dL 11/11/2024 3:18 AM [facility] Blood (Plasma/Serum) 11/11/2024 2:00 AM EST 11/11/2024 2:53 AM EST Nani PATTON-C [place] [address], [place] [address] * Magnesium (11/11/2024 2:00 AM EST) Magnesium 2.0 1.6 - 2.7 mg/dL 11/11/2024 3:18 AM [facility] Blood (Plasma/Serum) 11/11/2024 2:00 AM EST 11/11/2024 2:53 AM EST Nani Hollis PA-C LAB BLOOD ORDERABLES [address] [address], [facility] [address] [place] [address] * (ABNORMAL) Basic Metabolic Panel (11/11/2024 2:00 AM EST) Glucose 151(H) 65 - 99 mg/dL 11/11/2024 3:18 AM [facility] Comment:Fasting: <100 mg/dL, Non-Fasting: <200 mg/dL (ADA 2004) Blood Urea Nitrogen (BUN) 56(H) 8 - 21 mg/dL 11/11/2024 3:18 AM [facility] Creatinine 2.0(H) 0.5 - 1.3 mg/dL 11/11/2024 3:18 AM [facility] eGFR 37(L) >59 11/11/2024 3:18 AM [facility] Comment:CKD-EPI (2020) in mL /min/1.73 sq meters. Sodium 137 136 - 145 mmol/L 11/11/2024 3:18 AM [facility] Potassium 3.8 3.4 - 5.3 mmol/L 11/11/2024 3:18 AM [facility] Chloride 99 98 - 107 mmol/L 11/11/2024 3:18 AM [facility] CO2 27 22 - 33 mmol/L 11/11/2024 3:18 AM [facility] Anion Gap 11 7 - 17 11/11/2024 3:18 AM [facility] Calcium 8.7 8.7 - 10.5 mg/dL 11/11/2024 3:18 AM [facility] BUN/Creatinine Ratio 28(H) 10.0 - 25.0 Ratio 11/11/2024 3:18 AM [facility] Blood (Plasma/Serum) 11/11/2024 2:00 AM EST 11/11/2024 2:53 AM EST Nani Hollis PA-C LAB BLOOD ORDERABLES [address] [address], [address] [address] * (ABNORMAL) Hepatic Function Panel (Routine) (11/11/2024 2:00 AM EST) Alkaline Phosphatase 207(H) 45 - 128 U/L 11/11/2024 3:18 AM [facility] Aspartate Aminotrans (AST) 24 10 - 55 U/L 11/11/2024 3:18 AM [facility] Alanine Aminotrans (ALT) 14 10 - 55 U/L 11/11/2024 3:18 AM [facility] Bilirubin, Total 0.2 0.2 - 1.0 mg/dL 11/11/2024 3:18 AM [facility] Protein, Total 6.4 6.3 - 8.3 g/dL 11/11/2024 3:18 AM [facility] Albumin 2.6(L) 3.4 - 4.8 g/dL 11/11/2024 3:18 AM [facility] Bilirubin, Direct 0.1 0 - 0.2 mg/dL 11/11/2024 3:18 AM [facility] Globulin 3.8 1.5 - 3.9 g/dL 11/11/2024 3:18 AM [facility] Albumin/Globulin Ratio 0.7(L) 1.0 - 3.0 Ratio 11/11/2024 3:18 AM [facility] Blood (Plasma/Serum) 11/11/2024 2:00 AM EST 11/11/2024 2:53 AM EST Nani Hollis PA-C LAB BLOOD ORDERABLES [address] [address], [address] [address] * Creatine Kinase (CK) (11/11/2024 2:00 AM EST) Creatine Kinase (CK) 37 24 - 204 U/L 11/11/2024 3:18 AM EST [facility] Blood (Plasma/Serum) 11/11/2024 2:00 AM EST 11/11/2024 2:53 AM EST Nani Hollis PA-C LAB BLOOD ORDERABLES Performing Organization Address [facility]/ZIP Co de Phone Number [address] [address], [address] [address] * (ABNORMAL) POCT Glucose, Fingerstick (11/10/2024 7:55 [...] POCT Glucose, Fingerstick (11/10/2024 4:01 PM EST) [facility] POC Glucose 230(H) 65 - 99 mg/dL 11/10/2024 4:04 PM EST Blood specimen / Unknown 11/10/2024 4:01 PM EST 11/10/2024 4:04 PM EST Dallas Camejo MD POINT OF CARE TEST O RDERABLES HOSPITAL LAB See Below * (ABNORMAL) Phosphorus (11/10/2024 12:03 PM EST) [facility] Phosphorus 5.2(H) 2.7 - 4.5 mg/dL 11/10/2024 1:06 PM EST [facility] Blood (Plasma/Serum) 11/10/2024 12:03 PM EST 11/10/2024 12:27 PM EST Nani Hollis PA-C LAB BLOOD ORDERABLES Performing Organization Address [facility] [place] [address], [place] [address] * Magnesium (11/10/2024 12:03 PM EST) [facility] Magnesium 2.0 1.6 - 2.7 mg/dL 11/10/2024 1:06 PM EST [facility] Blood (Plasma/Serum) 11/10/2024 12:03 PM EST 11/10/2024 12:27 PM EST Nani Hollis PA-C LAB BLOOD ORDERABLES Performing Organization Address [facility] [place] [address], [place] [address] * (ABNORMAL) Basic Metabolic Panel (11/10/2024 12:03 PM EST) Glucose 135(H) 65 - 99 mg/dL 11/10/2024 1:06 PM [facility] Comment:Fasting: <100 mg/dL, Non-Fasting: <200 mg/dL (ADA 2004) Blood Urea Nitrogen (BUN) 57(H) 8 - 21 mg/dL 11/10/2024 1:06 PM [facility] Creatinine 1.9(H) 0.5 - 1.3 mg/dL 11/10/2024 1:06 PM [facility] eGFR 39(L) >59 11/10/2024 1:06 PM [facility] Comment:CKD-EPI (2020) in mL /min/1.73 sq meters. Sodium 137 136 - 145 mmol/L 11/10/2024 1:06 PM [facility] Potassium 3.8 3.4 - 5.3 mmol/L 11/10/2024 1:06 PM [facility] Chloride 101 98 - 107 mmol/L 11/10/2024 1:06 PM [facility] CO2 25 22 - 33 mmol/L 11/10/2024 1:06 PM [facility] Anion Gap 11 7 - 17 11/10/2024 1:06 PM [facility] Calcium 8.5(L) 8.7 - 10.5 mg/dL 11/10/2024 1:06 PM [facility] BUN/Creatinine Ratio 30(H) 10.0 - 25.0 Ratio 11/10/2024 1:06 PM [facility] Blood (Plasma/Serum) 11/10/2024 12:03 PM EST 11/10/2024 12:27 PM EST Nani Hollis PA-C LAB BLOOD ORDERABLES [address] [address], [address] [address] * (ABNORMAL) POCT Glucose, Fingerstick (11/10/2024 11:36 AM EST) POC Glucose 143(H) 65 - 99 mg/dL 11/10/2024 11:36 AM EST Blood specimen / Unknown 11/10/2024 11:36 AM EST 11/10/2024 11:37 AM EST Dallas Camejo MD POINT OF CARE TEST O RDERABLES Performing Organization Address City/[facility]/ZIP Co de Phone Number [facility] See Below * (ABNORMAL) POCT Glucose, Fingerstick (11/10/2024 7:42 AM EST) POC Glucose 134(H) 65 - 99 mg/dL 11/10/2024 7:43 AM EST Blood specimen / Unknown 11/10/2024 7:42 AM EST 11/10/2024 7:43 AM EST Dallas Camejo MD POINT OF CARE TEST O RDERABLES Performing Organization Address [facility] Phone Number [facility] See Below * (ABNORMAL) POCT Glucose, Fingerstick (11/10/2024 2:02 AM EST) POC Glucose 126(H) 65 - 99 mg/dL 11/10/2024 2:03 AM EST Blood specimen / Unknown 11/10/2024 2:02 AM EST 11/10/2024 2:03 AM EST Dallas Camejo MD POINT OF CARE TEST O RDERABLES Performing Organization Address [facility] Co de Phone Number [facility] See Below * (ABNORMAL) Phosphorus (11/10/2024 12:04 AM EST) Phosphorus 5.6(H) 2.7 - 4.5 mg/dL 11/10/2024 1:09 AM EST [facility] Blood (Plasma/Serum) 11/10/2024 12:04 AM EST 11/10/2024 12:33 AM EST Claire Garibay PA-C LAB BLOOD ORDERABLES Performing Organization Address [facility] Co de Phone Number [address] [address], [address] [address] * Magnesium (11/10/2024 12:04 AM EST) Magnesium 2.1 1.6 - 2.7 mg/dL 11/10/2024 1:09 AM [facility] Blood (Plasma/Serum) 11/10/2024 12:04 AM EST 11/10/2024 12:33 AM EST Claire Garibay PA-C LAB BLOOD ORDERABLES [address] [address], [place] [address] * (ABNORMAL) Basic Metabolic Panel (11/10/2024 12:04 AM EST) Glucose 122(H) 65 - 99 mg/dL 11/10/2024 1:09 AM [facility] Comment:Fasting: <100 mg/dL, Non-Fasting: <200 mg/dL (ADA 2005) Blood Urea Nitrogen (BUN) 56(H) 8 - 21 mg/dL 11/10/2024 1:09 AM [facility] Creatinine 2.0(H) 0.5 - 1.3 mg/dL 11/10/2024 1:09 AM [facility] eGFR 37(L) >59 11/10/2024 1:09 AM [facility] Comment:CKD-EPI (2020) in mL /min/1.73 sq meters. Sodium 135(L) 136 - 145 mmol/L 11/10/2024 1:09 AM [facility] Potassium 3.8 3.4 - 5.3 mmol/L 11/10/2024 1:09 AM [facility] Chloride 100 98 - 107 mmol/L 11/10/2024 1:09 AM [facility] CO2 24 22 - 33 mmol/L 11/10/2024 1:09 AM [facility] Anion Gap 11 7 - 17 11/10/2024 1:09 AM [facility] Calcium 8.2(L) 8.7 - 10.5 mg/dL 11/10/2024 1:09 AM [facility] BUN/Creatinine Ratio 28(H) 10.0 - 25.0 Ratio 11/10/2024 1:09 AM [facility] Blood (Plasma/Serum) 11/10/2024 12:04 AM EST 11/10/2024 12:33 AM EST Claire Garibay PA-C [place] [address], [place] [id number] * (ABNORMAL) COMPLETE BLOOD COUNT, WITHOUT DIFFERENTIAL (11/10/2024 12:04 AM EST) White Blood Cell Count 13.5(H) 4.0 - 11.0 Thou/uL 11/10/2024 12:47 AM [facility] Platelet Count 445 150 - 450 Thou/uL 11/10/2024 12:47 AM [facility] Hemoglobin 7.6(L) 13.0 - 17.7 g/dL 11/10/2024 12:47 AM [facility] Hematocrit 25.2(L) 39.0 - 54.0 % 11/10/2024 12:47 AM [facility] Red Blood Cell Count 2.75(L) 4.50 - 6.20 Mil/uL 11/10/2024 12:47 AM [facility] MCV 92 80 - 100 fL 11/10/2024 12:47 AM [facility] MCH 27.6 27.0 - 31.0 pg 11/10/2024 12:47 AM [facility] MCHC 30.2 30.0 - 36.0 g/dL 11/10/2024 12:47 AM [facility] RDW 17.2(H) 11.5 - 14.5 % 11/10/2024 12:47 AM [facility] MPV 9.7 7.5 - 12.5 fL 11/10/2024 12:47 AM [facility] Blood Blood specimen / Unknown 11/10/2024 12:04 AM EST 11/10/2024 12:33 AM EST Claire Garibay PA-C LAB BLOOD ORDERABLES Performing Organization Address City/[facility]/ZIP Co de Phone Number [address] [address], [address] [address] * (ABNORMAL) POCT Glucose, Fingerstick (11/09/2024 8:03 PM EST) POC Glucose 152(H) 65 - 99 mg/dL 11/09/2024 8:04 PM EST Blood specimen / Unknown 11/09/2024 8:03 PM EST 11/09/2024 8:04 PM EST Dallas Camejo MD POINT OF CARE TEST O RDERALUCILLE Performing Organization Address [facility]/ZIP Co de Phone Number [facility] See Below * (ABNORMAL) POCT Glucose, Fingerstick (11/09/2024 3:53 PM EST) POC Glucose 222(H) 65 - 99 mg/dL 11/09/2024 8:04 PM EST Blood specimen / Unknown 11/09/2024 3:53 PM EST 11/09/2024 8:04 PM EST Dallas Camejo MD POINT OF CARE TEST O RDERABLES Performing Organization Address City/[facility]/ZIP Co de Phone Number [facility] See Below * (ABNORMAL) POCT Glucose, Fingerstick (11/09/2024 11:47 AM EST) POC Glucose 146(H) 65 - 99 mg/dL 11/09/2024 11:53 AM EST Blood specimen / Unknown 11/09/2024 11:47 AM EST 11/09/2024 11:53 AM EST Dallas Camejo MD POINT OF CARE TEST O RDERALUCILLE [facility] See Below * (ABNORMAL) proBNP, N-terminal (11/09/2024 10:04 AM EST) proBNP, N-terminal 4,654(H) <125 pg/mL 11/09/2024 12:58 PM [facility] Plasma specimen / Unknown 11/09/2024 10:04 AM EST 11/09/2024 10:25 AM EST Claire Garibay PA-C LAB BLOOD ORDERABLES Performing Organization Address [facility] Co de Phone Number [address] [address], [facility] [address] [place] [address] * (ABNORMAL) Procalcitonin (11/09/2024 10:04 AM EST) Procalcitonin 0.40(H) <0.09 ng/mL 11/09/2024 11:01 AM [facility] Comment: (NOTE) ?Procalcitonin (PCT) Guided Antibiotic ? [...] LAB BLOOD ORDERABLES Performing Organization Address [facility]/[place] [address], [place] [address] * (ABNORMAL) POCT Glucose, Fingerstick (11/09/2024 7:29 AM EST) POC Glucose 153(H) 65 - 99 mg/dL 11/09/2024 7:33 AM EST Blood specimen / Unknown 11/09/2024 7:29 AM EST 11/09/2024 7:33 AM EST Dallas Camejo MD POINT OF CARE TEST O RDERABLES Performing Organization Address City/[facility]/ZIP Co de Phone Number HOSPITAL LAB See Below * (ABNORMAL) Phosphorus (11/09/2024 1:50 AM EST) Phosphorus 5.2(H) 2.7 - 4.5 mg/dL 11/09/2024 2:56 AM [facility] Blood (Plasma/Serum) 11/09/2024 1:50 AM EST 11/09/2024 2:31 AM EST Shay Martin MD LAB BLOOD ORDERAB LES Performing Organization Address City/[facility] [place] [address], [place] [address] * Magnesium (11/09/2024 1:50 AM EST) Magnesium 2.3 1.6 - 2.7 mg/dL 11/09/2024 2:56 AM [facility] Blood (Plasma/Serum) 11/09/2024 1:50 AM EST 11/09/2024 2:31 AM EST Shay Martin MD LAB BLOOD ORDERAB LES Performing Organization Address [facility] [place] [address], [place] [address] * (ABNORMAL) COMPLETE BLOOD COUNT, WITHOUT DIFFERENTIAL (11/09/2024 1:50 AM EST) White Blood Cell Count 11.9(H) 4.0 - 11.0 Thou/uL 11/09/2024 2:36 AM [facility] Platelet Count 405 150 - 450 Thou/uL 11/09/2024 2:36 AM [facility] Hemoglobin 7.7(L) 13.0 - 17.7 g/dL 11/09/2024 2:36 AM [facility] Hematocrit 24.9(L) 39.0 - 54.0 % 11/09/2024 2:36 AM [facility] Red Blood Cell Count 2.72(L) 4.50 - 6.20 Mil/uL 11/09/2024 2:36 AM [facility] MCV 92 80 - 100 fL 11/09/2024 2:36 AM [facility] MCH 28.3 27.0 - 31.0 pg 11/09/2024 2:36 AM [facility] MCHC 30.9 30.0 - 36.0 g/dL 11/09/2024 2:36 AM [facility] RDW 17.1(H) 11.5 - 14.5 % 11/09/2024 2:36 AM [facility] MPV 9.6 7.5 - 12.5 fL 11/09/2024 2:36 AM [facility] Blood Blood specimen / Unknown 11/09/2024 1:50 AM EST 11/09/2024 2:31 AM EST Shay Martin MD [place] [address], [place] [address] * (ABNORMAL) Basic Metabolic Panel (11/09/2024 1:50 AM EST) Glucose 117(H) 65 - 99 mg/dL 11/09/2024 2:56 AM [facility] Comment:Fasting: <100 mg/dL, Non-Fasting: <200 mg/dL (ADA 2004) Blood Urea Nitrogen (BUN) 46(H) 8 - 21 mg/dL 11/09/2024 2:56 AM [facility] Creatinine 1.8(H) 0.5 - 1.3 mg/dL 11/09/2024 2:56 AM [facility] eGFR 42(L) >59 11/09/2024 2:56 AM [facility] Comment:CKD-EPI (2020) in mL /min/1.73 sq meters. Sodium 139 136 - 145 mmol/L 11/09/2024 2:56 AM [facility] Potassium 3.6 3.4 - 5.3 mmol/L 11/09/2024 2:56 AM [facility] Chloride 101 98 - 107 mmol/L 11/09/2024 2:56 AM [facility] CO2 25 22 - 33 mmol/L 11/09/2024 2:56 AM [facility] Anion Gap 13 7 - 17 11/09/2024 2:56 AM [facility] Calcium 8.2(L) 8.7 - 10.5 mg/dL 11/09/2024 2:56 AM EST [facility] BUN/Creatinine Ratio 26(H) 10.0 - 25.0 Ratio 11/09/2024 2:56 AM EST [facility] Blood (Plasma/Serum) 11/09/2024 1:50 AM EST 11/09/2024 2:31 AM EST Shay Martin MD [place] [address], [place] [address] * (ABNORMAL) POCT Glucose, Fingerstick (11/09/2024 1:41 AM EST) POC Glucose 124(H) 65 - 99 mg/dL 11/09/2024 1:42 AM EST Blood specimen / Unknown 11/09/2024 1:41 AM EST 11/09/2024 1:42 AM EST Dallas Camejo MD POINT OF CARE TEST O RDERALUCILLE Performing Organization Address City/[facility]/ZIP Co de Phone Number [facility] See Below * (ABNORMAL) POCT [...] to verify the correct patient, procedure, equipment, sales support rep and site/side marked as required. Indications: vascular [...] Blood Gas, Venous (11/08/2024 5:46 PM EST) [facility] Venous Blood PH 7.35 7.33 - 7.43 11/08/2024 6:00 PM [facility] Venous pCO2 49 35 - 50 mmHG 11/08/2024 6:00 PM EST [facility] Venous pO2 45 0 - 60 mmHG 11/08/2024 6:00 PM [facility] Venous Total CO2 28 23 - 29 mmol/L 11/08/2024 6:00 PM [facility] Respiratory Info NASAL 6 L/MIN 11/08/2024 5:29 PM EST Base Excess 0.9 mmol/L 11/08/2024 6:00 PM [facility] Comment:Reference Range: Neg ative 2 to Positive 3 Blood Blood specimen / Unknown 11/08/2024 5:46 PM EST 11/08/2024 5:55 PM EST Eunice Garrison APRN [place] [address], [place] [address] * (ABNORMAL) Phosphorus (Routine) (11/08/2024 5:46 PM EST) [facility] Phosphorus 4.9(H) 2.7 - 4.5 mg/dL 11/08/2024 7:23 PM [facility] Blood (Plasma/Serum) 11/08/2024 5:46 PM EST 11/08/2024 6:51 PM EST Eunice Dedrakailey PCIKARDN [place] [address], [place] [address] * Magnesium (Routine) (11/08/2024 5:46 PM EST) Magnesium 1.9 1.6 - 2.7 mg/dL 11/08/2024 7:23 PM [facility] Blood (Plasma/Serum) 11/08/2024 5:46 PM EST 11/08/2024 6:51 PM EST Eunice Garrison TECHNICAL SUPPORT PROFESSIONAL [place] [address], [place] [address] * (ABNORMAL) Basic Metabolic Panel (Routine) (11/08/2024 5:46 PM EST) Glucose 134(H) 65 - 99 mg/dL 11/08/2024 7:23 PM [facility] Comment:Fasting: <100 mg/dL, Non-Fasting: <200 mg/dL (ADA 2004) Blood Urea Nitrogen (BUN) 45(H) 8 - 21 mg/dL 11/08/2024 7:23 PM [facility] Creatinine 1.7(H) 0.5 - 1.3 mg/dL 11/08/2024 7:23 PM [facility] eGFR 45(L) >59 11/08/2024 7:23 PM [facility] Comment:CKD-EPI (2020) in mL /min/1.73 sq meters. Sodium 141 136 - 145 mmol/L 11/08/2024 7:23 PM [facility] Potassium 3.3(L) 3.4 - 5.3 mmol/L 11/08/2024 7:23 PM [facility] Chloride 102 98 - 107 mmol/L 11/08/2024 7:23 PM [facility] CO2 26 22 - 33 mmol/L 11/08/2024 7:23 PM [facility] Anion Gap 13 7 - 17 11/08/2024 7:23 PM [facility] Calcium 8.6(L) 8.7 - 10.5 mg/dL 11/08/2024 7:23 PM [facility] BUN/Creatinine Ratio 26(H) 10.0 - 25.0 Ratio 11/08/2024 7:23 PM [facility] Blood (Plasma/Serum) 11/08/2024 5:46 PM EST 11/08/2024 6:51 PM EST Eunice Garrison TECHNICAL SUPPORT PROFESSIONAL LAB BLOOD ORDERA BLES [address] [address], [address] [address] * XR Chest 1 view-Portable (STAT) (11/08/2024 [...] prior study. Interpreted by: ??Bashir Barrientos MD [employer] Train Repairer I personally reviewed the images and the [...] prior study. Interpreted by: Bashir Barrientos MD [employer] Electric Train Repairer I personally reviewed the images and the [...] POCT Glucose, Fingerstick (11/08/2024 2:03 AM EST) Pathologist [facility] POC Glucose 209(H) 65 - 99 mg/dL 11/08/2024 2:59 AM EST Blood specimen / Unknown 11/08/2024 2:03 AM EST 11/08/2024 2:59 AM EST Dallas Camejo MD POINT OF CARE TEST O RDERABLES HOSPITAL LAB See Below * (ABNORMAL) High Sensitivity Troponin T (Once) (11/08/2024 12:05 AM EST) [facility] High Sensitivity Troponin T 26(H) <23 ng/L 11/08/2024 12:39 AM EST [facility] Delta (Change) NO CHANGE <3 11/08/2024 12:39 AM EST [facility] Blood (Plasma/Serum) 11/08/2024 12:05 AM EST 11/08/2024 12:16 AM EST Kayla Orona APRN LAB BLOOD ORDERABLES [address] [address], [address] [address] * Creatine Kinase (CK) (11/08/2024 12:05 AM EST) [facility] Creatine Kinase (CK) 91 24 - 204 U/L 11/08/2024 12:39 AM EST [facility] Blood (Plasma/Serum) 11/08/2024 12:05 AM EST 11/08/2024 12:16 AM EST [facility] [place] [address], [place] [address] * (ABNORMAL) proBNP, N-terminal (11/08/2024 12:05 AM EST) proBNP, N-terminal 4,241(H) <125 pg/mL 11/08/2024 12:39 AM [facility] Blood Plasma specimen / Unknown 11/08/2024 12:05 AM EST 11/08/2024 12:16 AM EST [facility] [place] [address], [place] [address] * (ABNORMAL) HEPATIC FUNCTION PANEL (11/08/2024 12:05 AM EST) Alkaline Phosphatase 226(H) 45 - 128 U/L 11/08/2024 12:39 AM [facility] Aspartate Aminotrans (AST) 24 10 - 55 U/L 11/08/2024 12:39 AM [facility] Alanine Aminotrans (ALT) 24 10 - 55 U/L 11/08/2024 12:39 AM [facility] Bilirubin, Total <0.2(L) 0.2 - 1.0 mg/dL 11/08/2024 12:39 AM [facility] Protein, Total 5.5(L) 6.3 - 8.3 g/dL 11/08/2024 12:39 AM [facility] Albumin 2.3(L) 3.4 - 4.8 g/dL 11/08/2024 12:39 AM [facility] Bilirubin, Direct 0.1 0 - 0.2 mg/dL 11/08/2024 12:39 AM [facility] Globulin 3.2 1.5 - 3.9 g/dL 11/08/2024 12:39 AM [facility] Albumin/Globulin Ratio 0.7(L) 1.0 - 3.0 Ratio 11/08/2024 12:39 AM [facility] Blood (Plasma/Serum) 11/08/2024 12:05 AM EST 11/08/2024 12:16 AM EST Kayla Orona APRN LAB BLOOD ORDERABLES [address] [address], [address] [address] * (ABNORMAL) COMPLETE BLOOD COUNT, WITHOUT DIFFERENTIAL (11/08/2024 12:05 AM EST) White Blood Cell Count 13.1(H) 4.0 - 11.0 Thou/uL 11/08/2024 12:22 AM [facility] Platelet Count 378 150 - 450 Thou/uL 11/08/2024 12:22 AM [facility] Hemoglobin 7.9(L) 13.0 - 17.7 g/dL 11/08/2024 12:22 AM [facility] Hematocrit 25.6(L) 39.0 - 54.0 % 11/08/2024 12:22 AM [facility] Red Blood Cell Count 2.83(L) 4.50 - 6.20 Mil/uL 11/08/2024 12:22 AM [facility] MCV 91 80 - 100 fL 11/08/2024 12:22 AM [facility] MCH 27.9 27.0 - 31.0 pg 11/08/2024 12:22 AM [facility] MCHC 30.9 30.0 - 36.0 g/dL 11/08/2024 12:22 AM [facility] RDW 16.9(H) 11.5 - 14.5 % 11/08/2024 12:22 AM [facility] MPV 9.3 7.5 - 12.5 fL 11/08/2024 12:22 AM [facility] Blood Blood specimen / Unknown 11/08/2024 12:05 AM EST 11/08/2024 12:16 AM EST Kayla Orona APRN LAB BLOOD ORDERABLES Performing Organization Address City/[facility]/[place] [address], [address] [address] * (ABNORMAL) Phosphorus (11/08/2024 12:05 AM EST) Phosphorus 5.2(H) 2.7 - 4.5 mg/dL 11/08/2024 12:39 AM [facility] Blood (Plasma/Serum) 11/08/2024 12:05 AM EST 11/08/2024 12:16 AM EST [facility] Performing Organization Address [facility] [place] [address], [place] [address] * Magnesium (11/08/2024 12:05 AM EST) Magnesium 2.0 1.6 - 2.7 mg/dL 11/08/2024 12:39 AM [facility] Blood (Plasma/Serum) 11/08/2024 12:05 AM EST 11/08/2024 12:16 AM EST Kayla [facility]OD ORDERABLES Performing Organization Address City/[facility]/[place] [address], [address] [address] * (ABNORMAL) Basic Metabolic Panel (11/08/2024 12:05 AM EST) Glucose 231(H) 65 - 99 mg/dL 11/08/2024 12:39 AM [facility] Comment:Fasting: <100 mg/dL, Non-Fasting: <200 mg/dL (ADA 2005) Blood Urea Nitrogen (BUN) 48(H) 8 - 21 mg/dL 11/08/2024 12:39 AM [facility] Creatinine 1.6(H) 0.5 - 1.3 mg/dL 11/08/2024 12:39 AM [facility] eGFR 48(L) >59 11/08/2024 12:39 AM [facility] Comment:CKD-EPI (2020) in mL /min/1.73 sq meters. Sodium 133(L) 136 - 145 mmol/L 11/08/2024 12:39 AM [facility] Potassium 3.8 3.4 - 5.3 mmol/L 11/08/2024 12:39 AM [facility] Chloride 98 98 - 107 mmol/L 11/08/2024 12:39 AM [facility] CO2 21(L) 22 - 33 mmol/L 11/08/2024 12:39 AM [facility] Anion Gap 14 7 - 17 11/08/2024 12:39 AM [facility] Calcium 7.9(L) 8.7 - 10.5 mg/dL 11/08/2024 12:39 AM [facility] BUN/Creatinine Ratio 30(H) 10.0 - 25.0 Ratio 11/08/2024 12:39 AM [facility] Blood (Plasma/Serum) 11/08/2024 12:05 AM EST 11/08/2024 12:16 AM EST Kayla Orona APRN [place] [address], [place] [address] * (ABNORMAL) POCT Glucose, Fingerstick (11/07/2024 7:47 PM EST) [facility] POC Glucose 261(H) 65 - 99 mg/dL 11/07/2024 7:53 PM EST Blood specimen / Unknown 11/07/2024 7:47 PM EST 11/07/2024 7:53 PM EST Dallas Camejo MD POINT OF CARE TEST O RDERABLES [facility]OSPITAL LAB See Below * Respiratory PCR Panel (11/07/2024 6:30 PM EST) Pathologist [facility] Adenovirus Not Detected Not Detected 11/08/2024 12:23 AM [facility] Coronavirus 229E Not Detected Not Detected 11/08/2024 12:23 AM [facility] Coronavirus HKU1 Not Detected Not Detected 11/08/2024 12:23 AM [facility] Coronavirus NL63 Not Detected Not Detected 11/08/2024 12:23 AM [facility] Coronavirus OC43 Not Detected Not Detected 11/08/2024 12:23 AM [facility] Human Metapneumovirus Not Detected Not Detected 11/08/2024 12:23 AM [facility] Rhinovirus/Enterov irus Not Detected Not Detected 11/08/2024 12:23 AM [facility] Influenza A Not Detected Not Detected 11/08/2024 12:23 AM [facility] Influenza B Not Detected Not Detected 11/08/2024 12:23 AM [facility] Parainfluenza 1 (PIV1) Not Detected Not Detected 11/08/2024 12:23 AM [facility] Parainfluenza 2 (PIV2) Not Detected Not Detected 11/08/2024 12:23 AM [facility] Parainfluenza 3 (PIV3) Not Detected Not Detected 11/08/2024 12:23 AM [facility] Parainfluenza 4 (PIV4) Not Detected Not Detected 11/08/2024 12:23 AM [facility] Respiratory Syncytial Virus Not Detected Not Detected 11/08/2024 12:23 AM [facility] Bordetella pertussis Not Detected Not Detected 11/08/2024 12:23 AM [facility] Chlamydophila pneumoniae Not Detected Not Detected 11/08/2024 12:23 AM [facility] Mycoplasma pneumoniae Not Detected Not Detected 11/08/2024 12:23 AM [facility] Bordetella parapertussis Not Detected Not Detected 11/08/2024 12:23 AM [facility] SARS CoV 2 Not Detected Not Detected 11/08/2024 12:23 AM [facility] X-Specimen 24 Nasopharyngeal swab / Unknown 11/07/2024 6:30 PM EST 11/07/2024 8:00 PM EST Kayla Orona APRN MICROBIOLOGY - GENER AL ORDERABLES [facility] [address] [place] [address], * (ABNORMAL) High Sensitivity Troponin T (Once) (11/07/2024 4:12 PM EST) High Sensitivity Troponin T 29(H) <23 ng/L 11/07/2024 5:28 PM EST [facility] Delta (Change) 3(H) <3 11/07/2024 5:28 PM EST [facility] Comment:Increased Blood (Plasma/Serum) 11/07/2024 4:12 PM EST 11/07/2024 5:01 PM EST Kayla Orona APRN LAB BLOOD ORDERABLES Performing Organization Address City/[facility]/[place] [address], [place] [address] * (ABNORMAL) Phosphorus (11/07/2024 4:12 PM EST) Phosphorus 4.7(H) 2.7 - 4.5 mg/dL 11/07/2024 5:28 PM EST [facility] Blood (Plasma/Serum) 11/07/2024 4:12 PM EST 11/07/2024 5:01 PM EST Kayla Orona APRN LAB BLOOD ORDERABLES Performing Organization Address City/[facility]/[place] [address], [place] [address] * Magnesium (11/07/2024 4:12 PM EST) Magnesium 2.2 1.6 - 2.7 mg/dL 11/07/2024 5:28 PM EST [facility] Blood (Plasma/Serum) 11/07/2024 4:12 PM EST 11/07/2024 5:01 PM EST Kayla Orona APRN [place] [address], [place] [address] * (ABNORMAL) Basic Metabolic Panel (11/07/2024 4:12 PM EST) Glucose 183(H) 65 - 99 mg/dL 11/07/2024 5:28 PM [facility] Comment:Fasting: <100 mg/dL, Non-Fasting: <200 mg/dL (ADA 2004) Blood Urea Nitrogen (BUN) 47(H) 8 - 21 mg/dL 11/07/2024 5:28 PM [facility] Creatinine 1.6(H) 0.5 - 1.3 mg/dL 11/07/2024 5:28 PM [facility] eGFR 48(L) >59 11/07/2024 5:28 PM [facility] Comment:CKD-EPI (2020) in mL /min/1.73 sq meters. Sodium 131(L) 136 - 145 mmol/L 11/07/2024 5:28 PM [facility] Potassium 3.7 3.4 - 5.3 mmol/L 11/07/2024 5:28 PM [facility] Chloride 98 98 - 107 mmol/L 11/07/2024 5:28 PM [facility] CO2 21(L) 22 - 33 mmol/L 11/07/2024 5:28 PM [facility] Anion Gap 12 7 - 17 11/07/2024 5:28 PM [facility] Calcium 8.1(L) 8.7 - 10.5 mg/dL 11/07/2024 5:28 PM [facility] BUN/Creatinine Ratio 29(H) 10.0 - 25.0 Ratio 11/07/2024 5:28 PM [facility] Blood (Plasma/Serum) 11/07/2024 4:12 PM EST 11/07/2024 5:01 PM EST Kayla Orona APRN LAB BLOOD ORDERABLES Performing Organization Address City/[facility]/ZIP Co de Phone Number [address] [address], [address] [address] * (ABNORMAL) POCT Glucose, Fingerstick (11/07/2024 3:53 PM EST) POC Glucose 179(H) 65 - 99 mg/dL 11/07/2024 3:58 PM EST Blood specimen / Unknown 11/07/2024 3:53 PM EST 11/07/2024 3:58 PM EST Dallas Camejo MD POINT OF CARE TEST O RDERABLES HOSPITAL LAB See Below * ECG 12 lead (11/07/2024 2:58 PM EST) Systolic BP 116 mmHg EKG [facility] Diastolic BP 57 mmHg EKG [facility] Ventricular rate 62 BPM EKG [facility] Atrial rate 55 BPM EKG [facility] QRS duration 168 ms EKG [facility] Q-T interval 506 ms EKG [facility] QTC calculation (Bazett) 513 ms EKG [facility] R axis 104 degrees EKG [facility] T axis -39 degrees EKG [facility] 11/07/2024 2:58 PM EST Narrative EKG [facility] - 11/07/2024 6:25 PM EST Ventricular-paced [...] PM Dallas Camejo MD ECG ORDERABLES EKG [facility] * BLOOD CULTURE Peripheral (11/07/2024 1:02 PM EST) Culture Sterile after 5 days 11/12/2024 7:50 AM EST [facility] Microbiology Peripheral blood specimen / Unknown 11/07/2024 1:02 PM EST 11/07/2024 1:23 PM EST Chris Taylor MD LAB AMB MICRO ORDERA BLES Performing Organization Address [facility]/ZIP Co de Phone Number [facility] [address] [place] [address], * BLOOD CULTURE Peripheral (11/07/2024 12:57 PM EST) Culture Sterile after 5 days 11/12/2024 7:50 AM EST [facility] Microbiology Peripheral blood specimen / Unknown 11/07/2024 12:57 PM EST 11/07/2024 1:49 PM EST Chris Taylor MD LAB AMB MICRO ORDERA BLES Performing Organization Address [facility] Co de Phone Number [facility] [address] [place] [address], * (ABNORMAL) Blood Gas, Arterial (STAT) (11/07/2024 12:36 PM EST) pH, Arterial 7.38 7.35 - 7.45 11/07/2024 1:02 PM [facility] pCO2, Arterial 36 32 - 45 mmHG 11/07/2024 1:02 PM [facility] pO2, Arterial 119(H) 75 - 95 mmHG 11/07/2024 1:02 PM [facility] CO2, Total 22 22 - 28 mmol/L 11/07/2024 1:02 PM [facility] Respiratory Info OTHER 11/07/19 25 12:36 PM EST Base Deficiency 3.5 mmol/L 1:02 PM [facility] Comment:Reference Range: Neg ative 2 to Positive 3 Blood Blood specimen / Unknown 11/07/2024 12:36 PM EST 11/07/2024 12:50 PM EST Kayla Orona APRN LAB BLOOD ORDERABLES Performing Organization Address City/[facility]/[place] [address], [place] [address] * (ABNORMAL) POCT Glucose, Fingerstick (11/07/2024 12:29 [...] to prior. Interpreted by: ??Roberto Tolbert MD [employer] I personally reviewed the images and the [...] to prior. Interpreted by: Roberto Tolbert MD [employer] I personally reviewed the images and the resident's preliminary report and AGREE with the report as it is now presented (RADPAL1). Juaquin Kern MD IMG DIAGNOSTIC SOCORRO GING ORDERABLES * (ABNORMAL) High Sensitivity Troponin T (11/07/2024 8:13 AM EST) High Sensitivity Troponin T 26(H) <23 ng/L 11/07/2024 12:53 PM EST [facility] Delta (Change) NO PREVIOUS RESULT <3 11/07/2024 12:53 PM EST [facility] Plasma/Serum 11/07/2024 8:13 AM EST 11/07/2024 8:49 AM EST Juaquin Kern MD LAB BLOOD ORDERABL ES Performing Organization Address [facility]/[place] [address], [place] [address] * (ABNORMAL) proBNP, N-terminal (11/07/2024 8:13 AM EST) proBNP, N-terminal 3,427(H) <125 pg/mL 11/07/2024 10:25 AM EST [facility] Plasma specimen / Unknown 11/07/2024 8:13 AM EST 11/07/2024 8:49 AM EST Juaquin Kern MD LAB BLOOD ORDERABL ES [address] [address], [facility] [address] [place] [address] * (ABNORMAL) Complete Blood Count, WITHOUT Differential (routine) (11/07/2024 8:13 AM EST) White Blood Cell Count 12.4(H) 4.0 - 11.0 Thou/uL 11/07/2024 9:05 AM [facility] Platelet Count 430 150 - 450 Thou/uL 11/07/2024 9:05 AM [facility] Hemoglobin 8.9(L) 13.0 - 17.7 g/dL 11/07/2024 9:05 AM [facility] Hematocrit 28.9(L) 39.0 - 54.0 % 11/07/2024 9:05 AM [facility] Red Blood Cell Count 3.16(L) 4.50 - 6.20 Mil/uL 11/07/2024 9:05 AM [facility] MCV 92 80 - 100 fL 11/07/2024 9:05 AM [facility] MCH 28.2 27.0 - 31.0 pg 11/07/2024 9:05 AM [facility] MCHC 30.8 30.0 - 36.0 g/dL 11/07/2024 9:05 AM [facility] RDW 16.7(H) 11.5 - 14.5 % 11/07/2024 9:05 AM [facility] MPV 9.6 7.5 - 12.5 fL 11/07/2024 9:05 AM [facility] nRBC 0.2(H) 0.0 - 0.1 /100 WBC 11/07/2024 9:05 AM [facility] nRBC, Absolute 0.03(H) 0.00 - 0.02 Thou/uL 11/07/2024 9:05 AM [facility] Blood Blood specimen / Unknown 11/07/2024 8:13 AM EST 11/07/2024 8:49 AM EST Juaquin Kern MD [place] [address], [place] [address] * MAGNESIUM (11/07/2024 8:13 AM EST) Magnesium 2.3 1.6 - 2.7 mg/dL 11/07/2024 9:26 AM [facility] Blood (Plasma/Serum) 11/07/2024 8:13 AM EST 11/07/2024 8:49 AM EST Juaquin Kern MD [place] [address], [place] [address] * PHOSPHORUS (11/07/2024 8:13 AM EST) Phosphorus 4.3 2.7 - 4.5 mg/dL 11/07/2024 9:26 AM [facility] Blood (Plasma/Serum) 11/07/2024 8:13 AM EST 11/07/2024 8:49 AM EST Juaquin Kern MD [place] [address], [place] [address] * (ABNORMAL) Comprehensive Metabolic Panel (11/07/2024 8:13 AM EST) Glucose 188(H) 65 - 99 mg/dL 11/07/2024 9:26 AM [facility] Comment:Fasting: <100 mg/dL, Non-Fasting: <200 mg/dL (ADA 2005) Blood Urea Nitrogen (BUN) 47(H) 8 - 21 mg/dL 11/07/2024 9:26 AM [facility] Creatinine 1.5(H) 0.5 - 1.3 mg/dL 11/07/2024 9:26 AM [facility] eGFR 52(L) >59 11/07/2024 9:26 AM [facility] Comment:CKD-EPI (2020) in mL /min/1.73 sq meters. Sodium 129(L) 136 - 145 mmol/L 11/07/2024 9:26 AM [facility] Potassium 3.9 3.4 - 5.3 mmol/L 11/07/2024 9:26 [facility] Chloride 94(L) 98 - 107 mmol/L 11/07/2024 9:26 AM [facility] CO2 22 22 - 33 mmol/L 11/07/2024 9:26 AM [facility] Calcium 8.3(L) 8.7 - 10.5 mg/dL 11/07/2024 9:26 [facility] Alkaline Phosphatase 220(H) 45 - 128 U/L 11/07/2024 9:26 [facility] Aspartate Aminotrans (AST) 28 10 - 55 U/L 11/07/2024 9:26 [facility] Alanine Aminotrans (ALT) 29 10 - 55 U/L 11/07/2024 9:26 [facility] Bilirubin, Total 0.2 0.2 - 1.0 mg/dL 11/07/2024 9:26 AM [facility] Protein, Total 6.1(L) 6.3 - 8.3 g/dL 11/07/2024 9:26 [facility] Albumin 2.6(L) 3.4 - 4.8 g/dL 11/07/2024 9:26 [facility] BUN/Creatinine Ratio 31(H) 10.0 - 25.0 Ratio 11/07/2024 9:26 [facility] Globulin 3.5 1.5 - 3.9 g/dL 11/07/2024 9:26 [facility] Albumin/Globulin Ratio 0.7(L) 1.0 - 3.0 Ratio 11/07/2024 9:26 [facility] Anion Gap 13 7 - 17 11/07/2024 9:26 AM [facility] Blood (Plasma/Serum) 11/07/2024 8:13 AM EST 11/07/2024 8:49 AM EST Juaquin Kern MD LAB BLOOD ORDERABL ES Performing Organization Address [facility] Co de Phone Number [address] [address], [address] [address] * (ABNORMAL) POCT Glucose, Fingerstick (11/07/2024 7:33 AM EST) POC Glucose 191(H) 65 - 99 mg/dL 11/07/2024 7:36 AM EST Blood specimen / Unknown 11/07/2024 7:33 AM EST 11/07/2024 7:36 AM EST Dallas Camejo MD POINT OF CARE TEST O RDERALUCILLE Performing Organization Address [facility] de Phone Number [facility] LAB See Below * (ABNORMAL) POCT Glucose, Fingerstick (11/07/2024 2:07 AM EST) POC Glucose 231(H) 65 - 99 mg/dL 11/07/2024 2:08 AM EST Blood specimen / Unknown 11/07/2024 2:07 AM EST 11/07/2024 2:08 AM EST Dallas Camejo MD POINT OF CARE TEST O RDERALUCILLE Performing Organization Address [facility] Co de Phone Number [facility] LAB See Below * (ABNORMAL) POCT Glucose, Fingerstick (11/06/2024 9:23 PM EST) POC Glucose 277(H) 65 - 99 mg/dL 11/06/2024 9:24 PM EST Blood specimen / Unknown 11/06/2024 9:23 PM EST 11/06/2024 9:24 PM EST Dallas Camejo MD POINT OF CARE TEST O RDGHANSHYAM Performing Organization Address [facility] Co de Phone Number [facility] LAB See Below * (ABNORMAL) POCT Glucose, Fingerstick (11/06/2024 5:24 PM EST) POC Glucose 193(H) 65 - 99 mg/dL 11/06/2024 5:29 PM EST Blood specimen / Unknown 11/06/2024 5:24 PM EST 11/06/2024 5:29 PM EST Dallas Camejo MD POINT OF CARE TEST O RDERABLES Performing Organization Address [facility] LAB See Below * (ABNORMAL) POCT Glucose, Fingerstick (11/06/2024 2:45 PM EST) POC Glucose 217(H) 65 - 99 mg/dL 11/06/2024 2:46 PM EST Blood specimen / Unknown 11/06/2024 2:45 PM EST 11/06/2024 2:46 PM EST Dalals Camejo MD POINT OF CARE TEST O RDERALUCILLE Performing Organization Address [facility] LAB See Below * (ABNORMAL) POCT Glucose, Fingerstick (11/06/2024 12:10 PM EST) POC Glucose 229(H) 65 - 99 mg/dL 11/06/2024 2:24 PM EST Blood specimen / Unknown 11/06/2024 12:10 PM EST 11/06/2024 2:24 PM EST Dallas Camejo MD POINT OF CARE TEST O RDERALUCILLE Performing Organization Address [facility] LAB See Below * (ABNORMAL) POCT Glucose, Fingerstick (11/06/2024 7:51 AM EST) POC Glucose 210(H) 65 - 99 mg/dL 11/06/2024 8:43 AM EST Blood specimen / Unknown 11/06/2024 7:51 AM EST 11/06/2024 8:43 AM EST Dallas Camejo MD POINT OF CARE TEST O RDERALUCILLE Performing Organization Address [facility] LAB See Below * (ABNORMAL) Complete Blood Count WITH Differential - Early AM (11/06/2024 4:58 AM EST) White Blood Cell Count 11.9(H) 4.0 - 11.0 Thou/uL 11/06/2024 5:26 AM [facility] Platelet Count 346 150 - 450 Thou/uL 11/06/2024 5:26 [facility] Hemoglobin 8.7(L) 13.0 - 17.7 g/dL 11/06/2024 5:26 AM [facility] Hematocrit 27.9(L) 39.0 - 54.0 % 11/06/2024 5:26 AM [facility] Red Blood Cell Count 3.05(L) 4.50 - 6.20 Mil/uL 11/06/2024 5:26 [facility] MCV 92 80 - 100 fL 11/06/2024 5:26 [facility] MCH 28.5 27.0 - 31.0 pg 11/06/2024 5:26 AM [facility] MCHC 31.2 30.0 - 36.0 g/dL 11/06/2024 5:26 [facility] RDW 16.4(H) 11.5 - 14.5 % 11/06/2024 5:26 [facility] MPV 9.5 7.5 - 12.5 fL 11/06/2024 5:26 [facility] Neutrophils Auto 88.8 % 11/06/19 5:26 AM [facility] Immature Granulocytes 1.1 % 11/06/2024 5:26 AM [facility] Lymphocytes Auto 3.4 % 11/06/19 5:26 AM [facility] Monocytes Auto 6.6 % 11/06/2024 5:26 AM [facility] Eosinophils Auto 0.0 % 11/06/19 5:26 AM [facility] Basophils Auto 0.1 % 11/06/2024 5:26 [facility] Abs Neutrophils Auto 10.57(H) 2.00 - 7.50 Thou/uL 11/06/2024 5:26 [facility] Abs Immature Granulocytes 0.13(H) 0.00 - 0.10 Thou/uL 11/06/2024 5:26 AM [facility] Abs Lymphocytes Auto 0.41(L) 1.50 - 4.50 Thou/uL 11/06/2024 5:26 AM [facility] Abs Monocytes Auto 0.79 0.20 - 1.50 Thou/uL 11/06/2024 5:26 AM [facility] Abs Eosinophils Auto 0.00 0.00 - 0.70 Thou/uL 11/06/2024 5:26 AM [facility] Abs Basophils Auto 0.01 0.00 - 0.20 Thou/uL 11/06/2024 5:26 AM [facility] Blood Blood specimen / Unknown 11/06/2024 4:58 AM EST 11/06/2024 5:15 AM EST Renea PATTON LAB BLOOD ORDERABLES Performing Organization Address City/[facility]/[place] [address], [place] [address] * (ABNORMAL) PHOSPHORUS (11/06/2024 4:58 AM EST) Phosphorus 5.1(H) 2.7 - 4.5 mg/dL 11/06/2024 5:46 AM [facility] Blood (Plasma/Serum) 11/06/2024 4:58 AM EST 11/06/2024 5:15 AM EST Renea PATTON [place] [address], [place] [address] * MAGNESIUM (11/06/2024 4:58 AM EST) Magnesium 2.5 1.6 - 2.7 mg/dL 11/06/2024 5:46 AM [facility] Blood (Plasma/Serum) 11/06/2024 4:58 AM EST 11/06/2024 5:15 AM EST Renea PATTON LAB BLOOD ORDERABLES [facility] [address] [place] [address], [facility] [address] [place] [address] * (ABNORMAL) Comprehensive Metabolic Panel (11/06/2024 4:58 AM EST) Glucose 194(H) 65 - 99 mg/dL 11/06/2024 5:46 AM [facility] Comment:Fasting: <100 mg/dL, Non-Fasting: <200 mg/dL (ADA 2004) Blood Urea Nitrogen (BUN) 48(H) 8 - 21 mg/dL 11/06/2024 5:46 AM [facility] Creatinine 1.7(H) 0.5 - 1.3 mg/dL 11/06/2024 5:46 AM [facility] eGFR 45(L) >59 11/06/2024 5:46 AM [facility] Comment:CKD-EPI (2020) in mL /min/1.73 sq meters. Sodium 131(L) 136 - 145 mmol/L 11/06/2024 5:46 AM [facility] Potassium 3.8 3.4 - 5.3 mmol/L 11/06/2024 5:46 AM [facility] Chloride 99 98 - 107 mmol/L 11/06/2024 5:46 AM [facility] CO2 20(L) 22 - 33 mmol/L 11/06/2024 5:46 AM [facility] Calcium 7.8(L) 8.7 - 10.5 mg/dL 11/06/2024 5:46 AM [facility] Alkaline Phosphatase 270(H) 45 - 128 U/L 11/06/2024 5:46 AM [facility] Aspartate Aminotrans (AST) 50 10 - 55 U/L 11/06/2024 5:46 AM [facility] Alanine Aminotrans (ALT) 31 10 - 55 U/L 11/06/2024 5:46 AM [facility] Bilirubin, Total 0.2 0.2 - 1.0 mg/dL 11/06/2024 5:46 AM [facility] Protein, Total 5.7(L) 6.3 - 8.3 g/dL 11/06/2024 5:46 AM [facility] Albumin 2.4(L) 3.4 - 4.8 g/dL 11/06/2024 5:46 AM [facility] BUN/Creatinine Ratio 28(H) 10.0 - 25.0 Ratio 11/06/2024 5:46 AM [facility] Globulin 3.3 1.5 - 3.9 g/dL 11/06/2024 5:46 AM [facility] Albumin/Globulin Ratio 0.7(L) 1.0 - 3.0 Ratio 11/06/2024 5:46 AM [facility] Anion Gap 12 7 - 17 11/06/2024 5:46 AM [facility] Blood (Plasma/Serum) 11/06/2024 4:58 AM EST 11/06/2024 5:15 AM EST Renea PATTON LAB BLOOD ORDERABLES Performing Organization Address City/[facility]/[place] [address], [place] [address] * BLOOD CULTURE Peripheral (11/06/2024 4:58 AM EST) Culture Sterile after 5 days 11/11/2024 8:20 AM [facility] Microbiology Peripheral blood specimen / Unknown 11/06/2024 4:58 AM EST 11/06/2024 5:36 AM EST Renea PATTON LAB AMB MICRO ORDERA BLES [facility] [address] [place] [address], * BLOOD CULTURE Peripheral (11/06/2024 4:58 AM EST) Culture Sterile after 5 days 11/11/2024 8:20 AM [facility] Microbiology Peripheral blood specimen / Unknown 11/06/2024 4:58 AM EST 11/06/2024 5:36 AM EST Renea E Cafferty PA LAB AMB MICRO ORDERA BLES Performing Organization Address [facility]/ZIP Co de Phone Number [facility] [address] [place] [address], * (ABNORMAL) POCT Glucose, Fingerstick (11/06/2024 1:17 AM EST) POC Glucose 229(H) 65 - 99 mg/dL 11/06/2024 1:18 AM EST Blood specimen / Unknown 11/06/2024 1:17 AM EST 11/06/2024 1:18 AM EST Dallas Camejo MD POINT OF CARE TEST O JOSEPH Performing Organization Address [facility] Co de Phone Number [facility] LAB See Below * (ABNORMAL) POCT Glucose, Fingerstick (11/05/2024 11:05 PM EST) POC Glucose 251(H) 65 - 99 mg/dL 11/05/2024 11:07 PM EST Blood specimen / Unknown 11/05/2024 11:05 PM EST 11/05/2024 11:07 PM EST Dallas Camejo MD POINT OF CARE TEST O RDERALUCILLE Performing Organization Address [facility] Co de Phone Number [facility] LAB See Below * (ABNORMAL) POCT Glucose, Fingerstick (11/05/2024 6:10 PM EST) POC Glucose 138(H) 65 - 99 mg/dL 11/05/2024 6:10 PM EST Blood specimen / Unknown 11/05/2024 6:10 PM EST 11/05/2024 6:11 PM EST Dallas Camejo MD POINT OF CARE TEST O RDERALUCILLE Performing Organization Address [facility] Co de Phone Number [facility] See Below * (ABNORMAL) POCT Glucose, Fingerstick (11/05/2024 3:37 PM EST) POC Glucose 138(H) 65 - 99 mg/dL 11/05/2024 3:38 PM EST Blood specimen / Unknown 11/05/2024 3:37 PM EST 11/05/2024 3:38 PM EST Dallas Camejo MD POINT OF CARE TEST [facility] LAB See Below * Pathology (11/05/2024 2:11 PM EST) Report [facility] CT [id number] ?? CLIA ID [id number] [address] [place], [place] ??[address] [phone] Surgical Pathology Report PATIENT NAME: [facility] REC NUMBER: [id number] (AGE): 1960 (Age: 63) SPECIMEN NUMBER: [id number] DATE OBTAINED: 11/05/2024 DIAGNOSIS LEFT LOWER EXTREMITY, BELOW KNEE AMPUTATION: ??SEVERE PERIPHERAL ARTERIOSCLEROSIS WITH CALCIFICATION, GANGRENOUS ULCER OF FOOT WITH SEVERE ACUTE OSTEOMYELITIS. NEGATIVE AMPUTATION MARGIN. /11/16/2024 Electronically Signed Out ? SENA SHABAZZ MD COMMENT [id number], [id number] Clinical Information and History: Acute osteomyelitis of [...] other masses or lesions are grossly identified. ??[employer] sections are submitted in A1 - ?? [...] EST Dallas Camejo MD PATHOLOGY/CYTOLOGY O RDGHANSHYAM [facility] LAB See Below * (ABNORMAL) POCT Glucose, Fingerstick (11/05/2024 12:54 PM EST) Pathologist [facility] POC Glucose 128(H) 65 - 99 mg/dL 11/05/2024 2:08 PM EST Blood specimen / Unknown 11/05/2024 12:54 PM EST 11/05/2024 2:08 PM EST Dallas Camejo MD POINT OF CARE TEST O RDERABLES Performing Organization Address [facility] Co de Phone Number [facility] See Below * (ABNORMAL) PROTIME-INR (11/05/2024 7:12 AM EST) Pathologist [facility] Anticoagulant Information not given 11/05/2024 7:47 AM [facility] Prothrombin Time (PT) 15.3(H) 10.0 - 13.5 seconds 11/05/2024 8:07 AM [facility] INR 1.3 11/05/2024 8:07 AM [facility] Comment:INR Therapeutic Rang es: Standard dose anticoagulant 2.0 to 3.0, High dose anticoagulant 2.5-3.5. Plasma specimen / Unknown 11/05/2024 7:12 AM EST 11/05/2024 7:46 AM EST Chris Taylor MD LAB BLOOD ORDERABLES Performing Organization Address [facility] [place] [address], [place] [address] * (ABNORMAL) COMPLETE BLOOD COUNT, WITHOUT DIFFERENTIAL (11/05/2024 7:12 AM EST) Pathologist [facility] White Blood Cell Count 15.9(H) 4.0 - 11.0 Thou/uL 11/05/2024 7:59 AM [facility] Platelet Count 353 150 - 450 Thou/uL 11/05/2024 7:59 AM [facility] Hemoglobin 9.1(L) 13.0 - 17.7 g/dL 11/05/2024 7:59 AM [facility] Hematocrit 28.3(L) 39.0 - 54.0 % 11/05/2024 7:59 AM [facility] Red Blood Cell Count 3.12(L) 4.50 - 6.20 Mil/uL 11/05/2024 7:59 AM [facility] MCV 91 80 - 100 fL 11/05/2024 7:59 AM [facility] MCH 29.2 27.0 - 31.0 pg 11/05/2024 7:59 AM [facility] MCHC 32.2 30.0 - 36.0 g/dL 11/05/2024 7:59 AM [facility] RDW 16.8(H) 11.5 - 14.5 % 11/05/2024 7:59 AM [facility] MPV 9.8 7.5 - 12.5 fL 11/05/2024 7:59 AM [facility] Blood specimen / Unknown 11/05/2024 7:12 AM EST 11/05/2024 7:46 AM EST Chrsi Taylor MD [place] [address], [place] [address] * (ABNORMAL) BASIC METABOLIC PANEL (11/05/2024 7:12 AM EST) Glucose 146(H) 65 - 99 mg/dL 11/05/2024 8:18 AM [facility] Comment:Fasting: <100 mg/dL, Non-Fasting: <200 mg/dL (ADA 2004) Blood Urea Nitrogen (BUN) 47(H) 8 - 21 mg/dL 11/05/2024 8:18 AM [facility] Creatinine 2.0(H) 0.5 - 1.3 mg/dL 11/05/2024 8:18 AM [facility] eGFR 37(L) >59 11/05/2024 8:18 AM [facility] Comment:CKD-EPI (2020) in mL /min/1.73 sq meters. Sodium 130(L) 136 - 145 mmol/L 11/05/2024 8:18 AM [facility] Potassium 3.4 3.4 - 5.3 mmol/L 11/05/2024 8:18 AM [facility] Chloride 96(L) 98 - 107 mmol/L 11/05/2024 8:18 AM [facility] CO2 19(L) 22 - 33 mmol/L 11/05/2024 8:18 AM [facility] Anion Gap 15 7 - 17 11/05/2024 8:18 AM [facility] Calcium 7.9(L) 8.7 - 10.5 mg/dL 11/05/2024 8:18 AM [facility] BUN/Creatinine Ratio 24 10.0 - 25.0 Ratio 11/05/2024 8:18 AM [facility] Plasma/Serum 11/05/2024 7:12 AM EST 11/05/2024 7:46 AM EST Chris Taylor MD LAB BLOOD ORDERABLES Performing Organization Address City/State/[facility] [place] [address], [place] [address] * (ABNORMAL) Hepatic Function Panel (AM) (11/05/2024 7:12 AM EST) Alkaline Phosphatase 153(H) 45 - 128 U/L 11/05/2024 8:18 AM [facility] Aspartate Aminotrans (AST) 26 10 - 55 U/L 11/05/2024 8:18 AM [facility] Alanine Aminotrans (ALT) 23 10 - 55 U/L 11/05/2024 8:18 AM [facility] Bilirubin, Total 0.3 0.2 - 1.0 mg/dL 11/05/2024 8:18 AM [facility] Protein, Total 5.9(L) 6.3 - 8.3 g/dL 11/05/2024 8:18 AM [facility] Albumin 2.5(L) 3.4 - 4.8 g/dL 11/05/2024 8:18 AM [facility] Bilirubin, Direct 0.2 0 - 0.2 mg/dL 11/05/2024 8:18 AM EST [facility] Globulin 3.4 1.5 - 3.9 g/dL 11/05/2024 8:18 AM [facility] Albumin/Globulin Ratio 0.7(L) 1.0 - 3.0 Ratio 11/05/2024 8:18 AM EST [facility] Blood (Plasma/Serum) 11/05/2024 7:12 AM EST 11/05/2024 7:46 AM EST Chris Taylor MD LAB BLOOD ORDERABLES Performing Organization Address City/[facility]/[place] [address], [place] [phone] * Creatine Kinase, Reflex to [facility] (11/05/2024 7:12 AM EST) Creatine Kinase (CK) 49 24 - 204 U/L 11/05/2024 8:18 AM EST [facility] Blood (Plasma/Serum) 11/05/2024 7:12 AM EST 11/05/2024 7:46 AM EST Chris Taylor MD LAB BLOOD ORDERABLES Performing Organization Address [facility]/[place] [address], [place] [phone] * (ABNORMAL) POCT Glucose, Fingerstick (11/05/2024 6:26 [...] ruled out. Interpreted by: ??David Vogt DO [employer] I personally reviewed the images and the [...] ruled out. Interpreted by: David Vogt DO [employer] I personally reviewed the images and the [...] CARE TEST O R[place]UC[place] Performing Organization Address [facility] Number [facility] See Below * (ABNORMAL) POCT Glucose, Fingerstick (11/04/2024 5:00 PM EST) POC Glucose 172(H) 65 - 99 mg/dL 11/04/2024 5:22 PM EST Blood specimen / Unknown 11/04/2024 5:00 PM EST 11/04/2024 5:22 PM EST Dallas Camejo MD POINT OF CARE TEST O [place] Performing Organization Address [facility] LAB See Below * (ABNORMAL) POCT Glucose, Fingerstick (11/04/2024 12:43 PM EST) POC Glucose 167(H) 65 - 99 mg/dL 11/04/2024 12:48 PM EST Blood specimen / Unknown 11/04/2024 12:43 PM EST 11/04/2024 12:48 PM EST Dallas Camejo MD POINT OF CARE TEST [place] Performing Organization Address [facility] Phone Number [facility] See Below * (ABNORMAL) Complete Blood Count WITHOUT Differential - Early AM (11/04/2024 11:19 AM EST) White Blood Cell Count 13.4(H) 4.0 - 11.0 Thou/uL 11/04/2024 11:38 AM EST [facility] Platelet Count 326 150 - 450 Thou/uL 11/04/2024 11:38 AM [facility] Hemoglobin 8.7(L) 13.0 - 17.7 g/dL 11/04/2024 11:38 AM [facility] Hematocrit 28.0(L) 39.0 - 54.0 % 11/04/2024 11:38 AM [facility] Red Blood Cell Count 3.05(L) 4.50 - 6.20 Mil/uL 11/04/2024 11:38 AM [facility] MCV 92 80 - 100 fL 11/04/2024 11:38 AM [facility] MCH 28.5 27.0 - 31.0 pg 11/04/2024 11:38 AM [facility] MCHC 31.1 30.0 - 36.0 g/dL 11/04/2024 11:38 AM [facility] RDW 16.6(H) 11.5 - 14.5 % 11/04/2024 11:38 AM [facility] MPV 9.4 7.5 - 12.5 fL 11/04/2024 11:38 AM [facility] Blood Blood specimen / Unknown 11/04/2024 11:19 AM EST 11/04/2024 11:28 AM EST Renea PATTON LAB BLOOD ORDERABLES Performing Organization Address City/State/[facility] [place] [address], [place] [phone] * (ABNORMAL) BLOOD CULTURE Peripheral (11/04/2024 11:03 AM EST) Gram stain suggestive of Gram positive cocci in clusters 11/07/2024 10:29 AM [facility] Culture Methicillin Resistant Staph aureus (MRSA) Aerobic bottle positive. Susceptibility of the same isolate identification, from the same apparent body site is only performed once per 5 calendar days. ?See susceptibilities reported on specimen collected 11/02/2024 (A) 11/08/2024 12:21 PM [facility] Microbiology Peripheral blood specimen / Unknown 11/04/2024 11:03 AM EST 11/04/2024 12:35 PM EST Chris Taylor MD LAB AMB MICRO ORDERA BLES Performing Organization Address [facility] Co de Phone Number [facility] [address] [place] [address], * (ABNORMAL) BLOOD CULTURE Peripheral (11/04/2024 11:03 AM EST) Gram stain suggestive of Gram positive cocci in clusters 11/07/2024 1:43 PM [facility] Culture Methicillin Resistant Staph aureus (MRSA) Aerobic bottle positive. Susceptibility of the same isolate identification, from the same apparent body site is only performed once per 5 calendar days. ?See susceptibilities reported on specimen collected 11/02/2024 (A) 11/08/2024 12:17 PM [facility] Microbiology Peripheral blood specimen / Unknown 11/04/2024 11:03 AM EST 11/04/2024 12:35 PM EST Chris Taylor MD LAB AMB MICRO ORDERA BLES Performing Organization Address [facility] Co de Phone Number [facility] [address] [place] [address], * (ABNORMAL) Basic Metabolic Panel (Routine) (11/04/2024 10:50 AM EST) Glucose 184(H) 65 - 99 mg/dL 11/04/2024 11:53 AM [facility] Comment:Fasting: <100 mg/dL, Non-Fasting: <200 mg/dL (ADA 2005) Blood Urea Nitrogen (BUN) 48(H) 8 - 21 mg/dL 11/04/2024 11:53 AM [facility] Creatinine 2.0(H) 0.5 - 1.3 mg/dL 11/04/2024 11:53 AM [facility] eGFR 37(L) >59 11/04/2024 11:53 AM [facility] Comment:CKD-EPI (2020) in mL /min/1.73 sq meters. Sodium 130(L) 136 - 145 mmol/L 11/04/2024 11:53 AM [facility] Potassium 3.7 3.4 - 5.3 mmol/L 11/04/2024 11:53 AM [facility] Chloride 95(L) 98 - 107 mmol/L 11/04/2024 11:53 AM [facility] CO2 21(L) 22 - 33 mmol/L 11/04/2024 11:53 AM [facility] Anion Gap 14 7 - 17 11/04/2024 11:53 AM [facility] Calcium 7.7(L) 8.7 - 10.5 mg/dL 11/04/2024 11:53 AM [facility] BUN/Creatinine Ratio 24 10.0 - 25.0 Ratio 11/04/2024 11:53 AM [facility] Blood (Plasma/Serum) 11/04/2024 10:50 AM EST 11/04/2024 11:28 AM EST Juaquin Kern MD LAB BLOOD ORDERABL ES Performing Organization Address City/State/[facility] [place] [address], [place] [address] * ECHOCARDIOGRAM COMPREHENSIVE (11/04/2024 9:05 AM EST) [...] ?Compared to previous outside study report from [facility] on 08/05/2024, Mitral and tricuspid regurgitation [...] Compared to previous outside study report from [facility] on 08/05/2024, Mitral and tricuspid regurgitation [...] BANK PRODUCT O RDERABLES Performing Organization Address [facility] LAB See Below * (ABNORMAL) POCT Glucose, Fingerstick (11/03/2024 9:25 PM EST) POC Glucose 229(H) 65 - 99 mg/dL 11/03/2024 9:26 PM EST Blood specimen / Unknown 11/03/2024 9:25 PM EST 11/03/2024 9:26 PM EST Dallas Camejo MD POINT OF CARE TEST O RDERALUCILLE Performing Organization Address [facility] LAB See Below * (ABNORMAL) POCT Glucose, Fingerstick (11/03/2024 5:50 PM EST) POC Glucose 158(H) 65 - 99 mg/dL 11/03/2024 6:19 PM EST Blood specimen / Unknown 11/03/2024 5:50 PM EST 11/03/2024 6:19 PM EST Dallas Camejo MD POINT OF CARE TEST O RDERALUCILLE Performing Organization Address [facility] LAB See Below * (ABNORMAL) POCT Glucose, Fingerstick (11/03/2024 11:43 AM EST) POC Glucose 153(H) 65 - 99 mg/dL 11/03/2024 11:48 AM EST Blood specimen / Unknown 11/03/2024 11:43 AM EST 11/03/2024 11:48 AM EST Dallas Camejo MD POINT OF CARE TEST O RDERABLES Performing Organization Address City/[facility]/ZIP Co de Phone Number HOSPITAL LAB See Below * Creatine Kinase (CK) (11/03/2024 10:52 AM EST) Creatine Kinase (CK) 61 24 - 204 U/L 11/03/2024 11:37 AM EST [facility] Blood (Plasma/Serum) 11/03/2024 10:52 AM EST 11/03/2024 11:10 AM EST Ena Mtz MD LAB BLOOD ORDERA BLES Performing Organization Address [facility] [place] [address], [place] [address] * (ABNORMAL) POCT Glucose, Fingerstick (11/03/2024 7:56 AM EST) POC Glucose 165(H) 65 - 99 mg/dL 11/03/2024 8:04 AM EST Blood specimen / Unknown 11/03/2024 7:56 AM EST 11/03/2024 8:04 AM EST Dallas Camejo MD POINT OF CARE TEST O RDERABLES Performing Organization Address [facility] Co de Phone Number [facility] LAB See Below * MRSA PCR Screen, Qualitative (11/03/2024 3:24 AM EST) MRSA Result Not Detected Not Detected 7:00 AM EST [facility] Comment:Performed by the Xpe rt MRSA NxG Assay X-Specimen 12 Specimen from nose / Unknown 11/03/2024 3:24 AM EST 11/03/2024 5:23 AM EST Kenzie PATTON MICROBIOLOGY - GENE RAL ORDERABLES Performing Organization Address [facility] [place] [address], [place] [address] * ECG 12 lead (STAT) (11/02/2024 9:34 PM EST) Ventricular rate 70 BPM EKG [facility] Atrial rate 70 BPM EKG [facility] P-R interval 272 ms EKG [facility] QRS duration 202 ms EKG [facility] Q-T interval 510 ms EKG [facility] QTC calculation (Bazett) 551 ms EKG [facility] P axis 81 degrees EKG [facility] R axis 29 degrees EKG [facility] T axis 132 degrees EKG [facility] 11/02/2024 9:34 PM EST Narrative EKG [facility] - 11/03/2024 4:30 PM EST Atrial-sensed [...] 11/03/2024 4:30:25 PM Kenzie PATTON ECG ORDERABLES [facility] * (ABNORMAL) POCT Glucose, Fingerstick (11/02/2024 9:19 PM EST) POC Glucose 163(H) 65 - 99 mg/dL 11/02/2024 9:20 PM EST Blood specimen / Unknown 11/02/2024 9:19 PM EST 11/02/2024 9:20 PM EST Dallas Camejo MD POINT OF CARE TEST O RDERABLES HOSPITAL LAB See Below * (ABNORMAL) Blood Culture ID PCR Panel (11/02/2024 8:00 PM EST) [facility] BC ID PCR Result Summary Enterococcus faecalis Vancomycin resistance gene detected by molecular method. Please refer to detailed susceptibility results when available and suggest consultation with Infectious Diseases for management. 11/03/2024 6:06 PM [facility] BC ID PCR Result Summary Enterococcus faecium Vancomycin resistance gene detected by molecular method. Please refer to detailed susceptibility results when available and suggest consultation with Infectious Diseases for management. 11/03/2024 6:06 PM [facility] BC ID PCR Result Summary Methicillin Resistant Staph aureus (MRSA) 11/03/2024 6:06 PM [facility] Methicillin resistance gene mecA/C Detected(A) 11/03/2024 6:06 PM [facility] Vancomycin resistance genes Eugenia/B Detected(A) 11/03/2024 6:06 PM [facility] Enterococcus faecalis Detected(A) 11/03/2024 6:06 PM [facility] Enterococcus faecium Detected(A) 11/03/2024 6:06 PM [facility] Listeria monocytogenes Not Detected 11/03/2024 6:06 PM [facility] Staphylococcus Detected(A) 6:06 PM [facility] Staphylococcus aureus Detected(A) 11/03/2024 6:06 PM [facility] Staphylococcus epidermidis Not Detected 11/03/2024 6:06 PM [facility] Staphylococcus lugdunensis Not Detected 11/03/2024 6:06 PM [facility] Streptococcus Not Detected 6:06 PM [facility] Streptococcus agalactiae Not Detected 11/03/2024 6:06 PM [facility] Streptococcus pneumoniae Not Detected 11/03/2024 6:06 PM [facility] Streptococcus pyogenes Not Detected 11/03/2024 6:06 PM [facility] Acinetobacter calcoaceticus-bauma nnii complex Not Detected 11/03/2024 6:06 PM [facility] Bacteroides fragilis Not Detected 11/03/2024 6:06 PM [facility] Enterobacterales Not Detected 2024 6:06 PM [facility] Enterobacter cloacae complex Not Detected 11/03/2024 6:06 PM [facility] Escherichia coli Not Detected 2024 6:06 PM [facility] Klebsiella aerogenes Not Detected 11/03/2024 6:06 PM [facility] Klebsiella oxytoca Not Detected 01/2025 6:06 PM [facility] Klebsiella pneumoniae group Not Detected 11/03/2024 6:06 PM [facility] Proteus Not Detected 11/03/2024 6:06 PM [facility] Salmonella Not Detected 11/03/2024 6:06 PM [facility] Serratia marcescens Not Detected 01/2025 6:06 PM [facility] Haemophilus influenza Not Detected 11/03/2024 6:06 PM [facility] Neisseria meningitidis Not Detected 11/03/2024 6:06 PM [facility] Pseudomonas aeruginosa Not Detected 11/03/2024 6:06 PM [facility] Stenotrophomonas maltophilia Not Detected 11/03/2024 6:06 PM [facility] Fernanda albicans Not Detected 2024 6:06 PM [facility] Fernanda auris Not Detected 6:06 PM [facility] Fernanda glabrata Not Detected 2024 6:06 PM [facility] Fernanda krusei Not Detected 11/03/19 6:06 PM [facility] Fernanda parapsilosis Not Detected 11/03/2024 6:06 PM [facility] Cryptococcus neoformans/gattii Not Detected 11/03/2024 6:06 PM [facility] PCR ID Comment Antimicrobial resistance can occur via multiple mechanisms. A Not Detected result for antimicrobial resistance gene(s) does not indicate antimicrobial susceptibility. Subculturing is required for species identification and susceptibility testing of isolates. 11/03/2024 6:06 PM [facility] 11/02/2024 8:00 PM EST 11/02/2024 8:29 PM EST Kenzie PATTON MICROBIOLOGY - GENE RAL ORDERABLES [facility] [address] [place] [address], * (ABNORMAL) Erythrocyte Sedimentation Rate (ESR) (11/02/2024 8:00 PM EST) Erythrocyte Sediment Rate (ESR) 79(H) <20 MM/HR 11/02/2024 8:51 PM EST [facility] Blood specimen / Unknown 11/02/2024 8:00 PM EST 11/02/2024 8:22 PM EST Kenzie PATTON LAB BLOOD ORDERABLE S Performing Organization Address City/[facility]/[place] [address], [place] [address] * (ABNORMAL) C-REACTIVE PROTEIN (11/02/2024 8:00 PM EST) Pathologist [facility] C-Reactive Protein 29.62(H) 0 - 0.49 mg/dL 11/03/2024 12:04 AM EST [facility] Plasma/Serum 11/02/2024 8:00 PM EST 11/02/2024 8:22 PM EST Kenzie PATTON LAB BLOOD ORDERABLE S Performing Organization Address City/[facility]/[place] [address], [place] [address] * (ABNORMAL) BLOOD CULTURE Peripheral (11/02/2024 8:00 PM EST) Gram stain suggestive of Gram positive cocci 11/03/2024 3:55 PM [facility] Culture Methicillin Resistant Staph aureus (MRSA) Aerobic and Anaerobic bottle positive. Complete identification and susceptibility of the same isolate, if appropriate, performed on only one blood culture collection per day. (A) 11/06/2024 12:15 PM EST [facility] Culture Enterococcus faecalis Aerobic and Anaerobic bottle positive. Complete identification and susceptibility of the same isolate, if appropriate, performed on only one blood culture collection per day. (A) 11/06/2024 12:15 PM EST [facility] Microbiology Peripheral blood specimen / Unknown 11/02/2024 8:00 PM EST 11/02/2024 8:28 PM EST Kenzie Mcknight Taylor PATTON LAB AMB MICRO ORDER JOSE [facility] [address] [place] [address], * (ABNORMAL) BLOOD CULTURE Peripheral (11/02/2024 8:00 PM EST) Gram stain suggestive of Gram positive cocci 11/03/2024 3:50 PM EST [facility] Culture Methicillin Resistant Staph aureus (MRSA) Aerobic and Anaerobic bottle positive. (A) 11/05/2024 1:52 PM EST [facility] Culture Enterococcus faecalis Aerobic and Anaerobic bottle positive. (A) 11/05/2024 1:52 PM EST [facility] Culture Enterococcus faecium Anaerobic bottle positive. (A) 11/05/2024 1:52 PM EST [facility] Microbiology Peripheral blood specimen [...] Kenzie PATTON LAB AMB MICRO ORDER JOSE [facility] [address] [place] [address], * Vitamin D, 25-Hydroxy (11/02/2024 8:00 PM EST) Vitamin D, 25-Hydroxy 50 30 - 100 ng/mL 11/02/2024 9:10 PM [facility] Blood (Plasma/Serum) 11/02/2024 8:00 PM EST 11/02/2024 8:23 PM EST Kenzie PATTON [place] [address], [place] [address] * (ABNORMAL) TRANSFERRIN (11/02/2024 8:00 PM EST) Transferrin 178(L) 200 - 360 mg/dL 11/03/2024 12:04 AM [facility] Blood (Plasma/Serum) 11/02/2024 8:00 PM EST 11/02/2024 8:22 PM EST Kenzie PATTON [place] [address], [place] [address] * (ABNORMAL) Prealbumin (11/02/2024 8:00 PM EST) Prealbumin 7(L) 20 - 40 mg/dL 11/03/2024 12:04 AM [facility] Blood (Plasma/Serum) 11/02/2024 8:00 PM EST 11/02/2024 8:22 PM EST Kenzie PATTON [place] [address], [place] [address] * (ABNORMAL) Albumin (11/02/2024 8:00 PM EST) Albumin 3.2(L) 3.4 - 4.8 g/dL 11/03/2024 12:04 AM [facility] Blood (Plasma/Serum) 11/02/2024 8:00 PM EST 11/02/2024 8:22 PM EST Kenzie Chandlergisselle PATTON LAB BLOOD ORDERABLE S Performing Organization Address [facility] [place] [address], [place] [address] * (ABNORMAL) Protime-INR (Routine) (11/02/2024 8:00 PM EST) [facility] Anticoagulant APIXABAN (ELIQUIS) 11/02/2024 6:26 PM EST Prothrombin Time (PT) 14.7(H) 10.0 - 13.5 seconds 11/02/2024 9:05 PM [facility] INR 1.3 11/02/2024 9:05 PM [facility] Comment:INR Therapeutic Rang es: Standard dose anticoagulant 2.0 to 3.0, High dose anticoagulant 2.5-3.5. Blood Plasma specimen / Unknown 11/02/2024 8:00 PM EST 11/02/2024 8:22 PM EST Kenzie Mcknight Taylor PATTON LAB BLOOD ORDERABLE S Performing Organization Address [facility] [place] [address], [place] [address] * (ABNORMAL) Basic Metabolic Panel (STAT) (11/02/2024 8:00 PM EST) [facility] Glucose 171(H) 65 - 99 mg/dL 11/03/2024 12:04 AM [facility] Comment:Fasting: <100 mg/dL, Non-Fasting: <200 mg/dL (ADA 2005) Blood Urea Nitrogen (BUN) 41(H) 8 - 21 mg/dL 11/03/2024 12:04 AM [facility] Creatinine 2.0(H) 0.5 - 1.3 mg/dL 11/03/2024 12:04 AM [facility] eGFR 37(L) >59 11/03/2024 12:04 AM [facility] Comment:CKD-EPI (2020) in mL /min/1.73 sq meters. Sodium 130(L) 136 - 145 mmol/L 11/03/2024 12:04 AM [facility] Potassium 4.0 3.4 - 5.3 mmol/L 11/03/2024 12:04 AM [facility] Chloride 92(L) 98 - 107 mmol/L 11/03/2024 12:04 AM [facility] CO2 19(L) 22 - 33 mmol/L 11/03/2024 12:04 AM [facility] Anion Gap 19(H) 7 - 17 11/03/2024 12:04 AM [facility] Calcium 8.5(L) 8.7 - 10.5 mg/dL 11/03/2024 12:04 AM [facility] BUN/Creatinine Ratio 21 10.0 - 25.0 Ratio 11/03/2024 12:04 AM [facility] Blood (Plasma/Serum) 11/02/2024 8:00 PM EST 11/02/2024 8:22 PM EST Kenzie PATTON LAB BLOOD ORDERABLE S Performing Organization Address City/State/[facility] [place] [address], [place] [address] * (ABNORMAL) Complete Blood Count WITH Differential - STAT (11/02/2024 8:00 PM EST) White Blood Cell Count 14.3(H) 4.0 - 11.0 Thou/uL 11/02/2024 8:32 PM [facility] Platelet Count 395 150 - 450 Thou/uL 11/02/2024 8:32 PM [facility] Hemoglobin 9.3(L) 13.0 - 17.7 g/dL 11/02/2024 8:32 PM [facility] Hematocrit 29.3(L) 39.0 - 54.0 % 11/02/2024 8:32 PM [facility] Red Blood Cell Count 3.20(L) 4.50 - 6.20 Mil/uL 11/02/2024 8:32 PM [facility] MCV 92 80 - 100 fL 11/02/2024 8:32 PM [facility] MCH 29.1 27.0 - 31.0 pg 11/02/2024 8:32 PM [facility] MCHC 31.7 30.0 - 36.0 g/dL 11/02/2024 8:32 PM [facility] RDW 16.1(H) 11.5 - 14.5 % 11/02/2024 8:32 PM [facility] MPV 9.5 7.5 - 12.5 fL 11/02/2024 8:32 PM [facility] Neutrophils Auto 81.9 % 11/02/19 8:32 PM [facility] Immature Granulocytes 0.6 % 11/02/2024 8:32 PM [facility] Lymphocytes Auto 4.8 % 11/02/19 8:32 PM [facility] Monocytes Auto 12.2 % 11/02/2024 8:32 PM [facility] Eosinophils Auto 0.1 % 11/02/19 8:32 PM [facility] Basophils Auto 0.4 % 11/02/2024 8:32 PM [facility] Abs Neutrophils Auto 11.67(H) 2.00 - 7.50 Thou/uL 11/02/2024 8:32 PM [facility] Abs Immature Granulocytes 0.08 0.00 - 0.10 Thou/uL 11/02/2024 8:32 PM [facility] Abs Lymphocytes Auto 0.69(L) 1.50 - 4.50 Thou/uL 11/02/2024 8:32 PM [facility] Abs Monocytes Auto 1.74(H) 0.20 - 1.50 Thou/uL 11/02/2024 8:32 PM [facility] Abs Eosinophils Auto 0.02 0.00 - 0.70 Thou/uL 11/02/2024 8:32 PM [facility] Abs Basophils Auto 0.05 0.00 - 0.20 Thou/uL 11/02/2024 8:32 PM [facility] Blood Blood specimen / Unknown 11/02/2024 8:00 PM EST 11/02/2024 8:22 PM EST Kenzie PATTON [place] [address], [place] [address] * Type and Screen (11/02/2024 7:56 PM EST) ABO/Rh A POSITIVE 11/02/2024 10:22 PM [facility] Antibody Screen NEGATIVE 11/02/2024 10:22 PM [facility] Specimen Expiration 11/05/2024 11/02/2024 10:22 PM [facility] Unit Number [id number] 11/04/2024 6:58 AM [facility] Blood Component Type LEUKOREDUCED RED CELLS 11/04/2024 6:58 AM [facility] Unit Division 00 11/04/2024 6:58 AM [facility] Unit Status REL FROM ALLOC 9:33 PM [facility] Transfusion Status OK TO TRANSFUSE 11/04/2024 6:58 AM [facility] Crossmatch Result Electronically Compatible 11/04/2024 6:58 AM [facility] Unit Number [id number] 11/04/2024 6:58 AM [facility] Blood Component Type LEUKOREDUCED RED CELLS 11/04/2024 6:58 AM [facility] Unit Division 00 11/04/2024 6:58 AM [facility] Unit Status REL FROM ALLOC 9:33 PM [facility] Transfusion Status OK TO TRANSFUSE 11/04/2024 6:58 AM [facility] Crossmatch Result Electronically Compatible 11/04/2024 6:58 AM [facility] Blood Blood specimen / Unknown 11/02/2024 7:56 PM EST 11/02/2024 8:51 PM EST Comment:Blood Kenzie PATTON BLOOD BANK TEST ORD ERABLES [place]PITAL [place] [address] * (ABNORMAL) POCT Glucose, Fingerstick (11/02/2024 6:48 [...] Fri11/18/24 at 1130, All antimicrobials used at [facility] require an indication. Please complete the following [...] tablet. 0852 (Given - Provider: Nelson Iqbal RN)2108 [...] Montemayor RN) 0935 (Given - Provider: Mitesh Caldwell, JOSUE)1700 (Not Given - Provider: Mitesh Caldwell RN - Reason: Patient/family refused) cefTRIAXone (ROCEPHIN) 2 g in sodium chloride-MBP (NS) 100 mL IVPB-MBP 2 g, Intravenous, at 200 mL/hr, Every 24 hours, First dose on Lennie 11/18/24 at 1130, All antimicrobials used at [facility] require an indication. Please complete the following [...] Provider: physician 1408 (New Bag - Provider: Neslon Iqbal RN) 1347 (New Bag - Provider: [...] at 0800 0853 (Given - Provider: Nelson Iqbal, JOSUE) 0815 (Given - Provider: Mitesh Caldwell RN) [...] Marisel Wray RN)0816 (Given - Provider: Mitesh Caldwell, JOSUE)1753 (Given - Provider: Page Montemayor RN) 0323 [...] (Patch Applied - Provider: Mitesh Caldwell RN) 09 (Patch Removed - Provider: Mitesh Caldwell RN)0930 [...] since Fri11/03/2024 at 0850 until manually unheld 899 (Hold - Provider: Nelson Iqbal RN - Reason: See Provider Order) 899 (Hold - Provider: Page Montemayor RN - Reason: See Provider Order) 899 (Not Given - Provider: Mitesh Caldwell RN - Reason: See Provider Order)2150 (Provider Unheld - Provider: Automatic Discharge Provider) pregabalin (LYRICA) capsule 100 mg 100 mg, Oral, 3 times daily, First dose (after last modification) on Fri11/17/24 at 1400 0852 (Given - Provider: Nelson Iqbal, JOSUE)1407 (Given - Provider: Nelson Iqbal RN)2108 (Given - Provider: Marisel Wray RN) 0815 (Given - Provider: Mitesh Caldwell, JOSUE)1351 (Given - Provider: Page Montemayor RN)2108 (Given [...] 2 as needed, Starting on Fri11/05/24 at 191 calcium carbonate (TUMS) chewable tablet 1,000 mg [...] are not effective, Starting on Fri11/05/24 at 191 melatonin tablet 3 mg 3 mg, Oral, [...] documented as of this encounter Care Teams Carpet Cutter Relationship Specialty Start Date End Date Lee Fabian MD [address] [place] [id number] PCP - General Internal Medicine 09/02/24 Vitaliy Fields MD [address] [place] [id number] Cardiovascular Disease 09/02/24 Dallas Camejo MD [address] [place] [address] Surgery, Orthopedic 09/02/24 Rolando Lopez MD [address] Transplant - Ph [address] [place] [address] Physician Nephrology 09/02/24 Cesar Fair MD [address] [facility] [address] [place] [address] Surgery, Cardiac 11/08/24 documented as of this encounter
--- OUTSIDE RECORDS SUMMARY | 2024-12-03 15:25 | XMS_ITS | Encounter Summary ---
Author Organization [facility] Address [address] [place] [address] Care Team Providers Care Adjunct Communications Faculty Member Name Role Phone Lee Fabian MD Primary Care Provider [phone] Reason for Visit * Reason Onset Date Comments Faxed Order 2024 Driss BLACKMAN Encounter Details Date Type Department Care Team (Late st Contact Info) Description 2024 Telephone Internal Medicine - [address] [address] Lee Fabian MD [address] [place] [address] Faxed Order (Driss BLACKMAN ) Social History [...] - 2024 3:53 PM EST Orders from [facility] placed in Lee Fabian MD bin. Please complete and fax back to [phone]. Thank you. documented in this encounter Plan of Treatment Upcoming Encounters Date Type Department Care Team (Late st Contact Info) Description 12/06/2024 10:30 AM EDT Office Visit Internal Medicine - [address] [address] Lee Fabian MD [address] [place] [address] documented as of this encounter Goals Goal [...] documented as of this encounter Care Teams Adjunct Communications Faculty Member Relationship Specialty Start Date End Date Lee Fabian MD [address] [place] [address] PCP - General Internal Medicine 08/03/24 documented as of this encounter
--- OUTSIDE RECORDS SUMMARY | 2024-12-03 15:25 | XMS_ITS | Encounter Summary ---
Author Organization [facility] Address [address] [place] [address] Care Team Providers Care Auto Vinyl Top Installer Name Role Phone Lee Fabian MD Primary Care Provider Reason for Visit * Reason Onset Date Comments Hospital Follow-up 2024 Encounter Details Date Type Department Care Team (Late st Contact Info) Description 2024 Telephone Internal Medicine - [facility] [address] [place] [phone] Lee Fabian MD [address] [place] [address] Hospital Follow-up Social History Tobacco Use Types [...] documented in this encounter Progress Notes * Letaha Chavez RN - 2024 10:58 AM EST Spoke with pt [facility] f/u appt. scheduled * Kevin Stroud - 2024 10:10 AM EST Hospital/ER follow up appointment needed Hospital patient was treated at: [facility] Was this only an ER visit [...] was the injury due to: Not 3rd green party related documented in this encounter Plan of Treatment Upcoming Encounters Date Type Department Care Team (Late st Contact Info) Description 12/06/2024 10:30 AM EDT Office Visit Internal Medicine - [facility] [address] [place], [place] [phone] Lee Fabian MD [address] [place] [address] documented as of this encounter Goals Goal [...] documented as of this encounter Care Teams Auto Vinyl Top Installer Relationship Specialty Start Date End Date Lee Fabian MD [address] [place], [place] [phone] PCP - General Internal Medicine 08/03/24 documented as of this encounter
--- OUTSIDE RECORDS SUMMARY | 2024-12-03 15:25 | XMS_ITS | Encounter Summary ---
Author Organization [facility] Address [address] [place] [address] Care Team Providers Care Business Process Coordinator Name Role Phone Lee Fabian MD Primary Care Provider [phone] Reason for Visit * Reason Onset Date Comments Faxed Order 11/05/2024 Driss KEITAA (Tra nsfer Summary) Encounter Details Date Type Department Care Team (Late st Contact Info) Description 11/05/2024 Telephone [facility] - [facility] [address] [place] [phone] Lee Fabian MD [address] [place] [address] Faxed Order (Driss KEITAA (Transfer Summary)) Social [...] - 11/05/2024 3:34 PM EST Orders from [facility] placed in Lee Fabian MD bin. Please complete and fax back to [phone]. Thank you. documented in this encounter Plan of Treatment Upcoming Encounters Date Type Department Care Team (Late st Contact Info) Description 12/06/2024 10:30 AM EDT Office Visit Internal Medicine - [address] [address] Lee Fabian MD [address] [place] [address] documented as of this encounter Goals Goal Patient Goal Type Associated Problems Recent Progress Patient-Stated? Author Decrease Wound Volume by X% by date (in notes) Care Plan Impaired Tissue On track( 025 11:43 AM EST) uSsan Allison RN Patient and Caregiver Understand Wound [...] documented as of this encounter Care Teams Business Process Coordinator Relationship Specialty Start Date End Date Lee Fabian MD [address] [place] [address] PCP - General Internal Medicine 08/03/24 documented as of this encounter
--- OUTSIDE RECORDS SUMMARY | 2024-12-03 15:25 | XMS_ITS | Encounter Summary ---
Author Organization [facility] Address [address] [place] [address] Care Team Providers Care Specialty Manufacturing Supervisor Name Role Phone Lee Fabian MD Primary Care Provider Vitaliy Fields MD Unavailable Dallas Camejo MD Unavailable Rolando Lopez MD Unavailable Cesar Fair MD Unavailable [phone] Daisy Her PT Unavailable Reason for Referral * Cardiovascular Test (Routine) - Pending Review Specialty Diagnoses / Procedures Referred By Contac t Referred To Contact Diagnoses Complete AV block (HCC) Presence of permanent cardiac pacemaker Bacteremia Procedures Cardiac Implantable Electronic Dev Eval Gretel Hinds, CHANNEL LAYER [address] [address] Referral ID Status Reason Start Date Expiration Date V isits Requested Visits Authorized [id number] Pending Review 11/17/2024 11/18/2025 1 1 Encounter Details Date Type Department Care Team (Late st Contact Info) Description 11/17/2024 Orders Only [facility] Heart & Vascular [place] - Electrophysiology [address] [place] [phone] Gretel Hinds, CHANNEL LAYER [address] [address] Complete AV block (HCC) (Primary Dx); Presence of permanent cardiac pacemaker; Bacteremia Social History Tobacco Use Types Packs/Day Years Used Date Smoking Tobacco: Former Cigarettes 1 29.2 1 977 - 2003 Smokeless Tobacco: Never Alcohol Use Standard Drinks/Week Comments Yes 21 (1 standard drink = 0.6 oz pu re alcohol) [facility] Utilities Answer Date Recorded In the past 12 months has th e [employer], gas, oil, or water company threatened to [...] any time in the past 12 m [facility], were you homeless or living in [...] Info) Description 12/07/2024 1:30 PM EDT Appointment [facility] Heart & Vascular [place] - Electrophysiology [address] [place] [phone] Gretel Hinds, CHANNEL LAYER [address] [address] 12/14/2024 2:00 PM EDT [facility] [address] [address] Dallas Camejo MD [address] [place] [phone] 12/16/2024 8:30 AM EDT Office Visit [facility] Infectious Disease [address] [place] [phone] Ena Mtz MD [address] [place] [address] Scheduled Orders Name Type Priority Associated Diagnoses [...] documented as of this encounter Care Teams Specialty Manufacturing Supervisor Relationship Specialty Start Date End Date Lee Fabian MD [address] [place] [address] PCP - General Internal Medicine 09/02/24 Vitaliy Fields MD [address] [place] [address] Cardiovascular Disease 09/02/24 Dallas Camejo MD [address] [place] [address] Surgery, Orthopedic 09/02/24 Rolando Lopez MD [address] [place] [address] Transplant - [address] [place] [address] Physician Nephrology 09/02/24 Cesar Fair MD [address] [phone] Surgery, Cardiac 11/08/24 Daisy Her, PT [address] [phone] Drafter Chief DesignAutomobile Upholsterer Medicine and Rehabilitation 11/18/24 documented as of this encounter
--- OUTSIDE RECORDS SUMMARY | 2024-12-03 15:25 | XMS_ITS | Encounter Summary ---
Author Organization [facility] Address [address] [place] [address] Care Team Providers Care Photo Booth Operator Name Role Phone Lee Fabian MD Primary Care Provider [phone] Reason for Visit * Reason Onset Date Comments Request For Order(s) 11/12/2024 [facility] Encounter Details Date Type Department Care Team (Late st Contact Info) Description 11/12/2024 [facility] [address] [place] [phone] Lee Fabian MD [address] [place] [address] Request For Order(s) ([facility] ) Social History Tobacco Use Types [...] 2:20 PM EST Faxed order received from [facility]. Orders placed in Lee Fabian MD bin for signing, please fax to [phone]. documented in this encounter Plan of Treatment Upcoming Encounters Date Type Department Care Team (Late st Contact Info) Description 12/06/2024 10:30 AM EDT Office Visit Internal Medicine - [address] [phone] Lee Fabian MD [address] [place] [address] documented as of this encounter Goals Goal [...] documented as of this encounter Care Teams Photo Booth Operator Relationship Specialty Start Date End Date Lee Fabian MD [address] [place] [address] PCP - General Internal Medicine 08/03/24 documented as of this encounter
--- OUTSIDE RECORDS SUMMARY | 2024-12-03 15:25 | XMS_ITS | Encounter Summary ---
Author Organization [facility] Address [address] [place] [address] Care Team Providers Care Marketing Officer Name Role Phone Lee Fabian MD Primary Care Provider Vitaliy Fields MD Unavailable Dallas Camejo MD Unavailable [phone] Rolando Lopez MD Unavailable [phone] Cesar Fair MD Unavailable [phone] Daisy Hre PT Unavailable [phone] Reason for Referral * Cardiovascular Test (Routine) - Pending Review Specialty Diagnoses / Procedures Referred By Contac t Referred To Contact Diagnoses Bacteremia Procedures Transesophageal Echocardiogram Ena Mtz MD [address] [place] [address] Referral ID Status Reason Start Date Expiration Date V isits Requested Visits Authorized [id number] Pending Review 12/03/2024 12/04/2025 1 1 Reason for Visit * Reason Comments Referral Encounter Details Date Type Department Care Team (Late st Contact Info) Description 12/02/[address] [phone] Christen Whitney MA [address] [place] [address] Referral Social History Tobacco Use Types Packs/Day Years Used Date Smoking Tobacco: Former Cigarettes 1 29.2 1 977 - 2003 Smokeless Tobacco: Never Alcohol Use Standard Drinks/Week Comments Yes 21 (1 standard drink = 0.6 oz pu re alcohol) [facility] Utilities Answer Date Recorded In the past 12 months has th e [employer], gas, oil, or water [employer] threatened to shut off services in your [...] any time in the past [address] [facility], were you homeless or living in a correction (including now)? No 11/03/2024 Sex and Gender Information Value Date Recorded Sex Assigned at Male 09/03/2024 12:21 PM EST Gender Identity Male 09/03/2024 12:21 PM EST Sexual Orientation Heterosexual (straight) 09/10 7:58 AM EST documented as of this encounter Miscellaneous Notes * Telephone Encounter - Ena Mtz MD - 12/03/2024 1:22 PM EST Order placed * Telephone Encounter - Elizabeth Hammond RN - 12/02/2024 1:45 PM EST Reviewed last note from ID provider Dr. Mtz indicating need for TATIANNA the end of November priorto end of therapy. Will forward request for TATIANNA orders to Dr. Mtz. * Telephone Encounter - Christen Whitney MA - 12/02/2024 11:26 AM EST T/c from Pt stated his end of therapy date of 12/28, asked for a referral to be sent in to the [facility] for the TATIANNA. Asked for a call back.Contact verified. documented in this encounter Plan of Treatment Upcoming Encounters Date Type Department Care Team (Late st Contact Info) Description 12/07/2024 1:30 PM EDT Appointment [facility] Heart & Vascular [place] - Electrophysiology [address] [place] [phone] Gretel Hinds, WATER CHASER [address] [address] 12/14/2024 2:00 PM EDT [facility] [address] [place] [address] Dallas Camejo MD [address] [place] [address] 12/16/2024 8:30 AM EDT Office Visit [facility] Infectious Disease [address] [place] [phone] Ena Mtz MD [address] [place], [place] [phone] Scheduled Orders Name Type Priority Associated Diagnoses Order Schedule Transesophageal Echocardiogram Echocardiography Routine Bacteremia Expected: 12/22/2024, Expires: 12/03/2025 documented as of this encounter Visit Diagnoses Diagnosis Bacteremia- Primary documented in this encounter Care Teams Marketing Officer Relationship Specialty Start Date End Date Lee Fabian MD [address] [place] [address] PCP - General Internal Medicine 09/02/24 Vitaliy Fields MD [address] [place] [address] Cardiovascular Disease 09/02/24 Dallas Camejo MD [address] [place] [address] Surgery, Orthopedic 09/02/24 Rolando Lopez MD [address] Transplant - Ph [address] [place] [address] Physician Nephrology 09/02/24 Cesar Fair MD 85 [facility] [address] [place] [phone] Surgery, Cardiac 11/08/24 Daisy Her, PT 85 [facility] [address] [place] [address] Compressor OperatorMenhaden Fishing Crew Member Medicine and Rehabilitation 11/18/24 documented as of this encounter
--- OUTSIDE RECORDS SUMMARY | 2024-12-03 15:25 | XMS_ITS | Encounter Summary ---
Author Organization [facility] Address [address] [place] [address] Care Team Providers Care Ground Crewman Mission Support Name Role Phone Lee Fabian MD Primary Care Provider [phone] Reason for Visit * Reason Onset Date Comments Faxed Order 11/05/2024 [facility] (Cer t/POC 2-12/29) Encounter Details Date Type Department Care Team (Late st Contact Info) Description 11/05/2024 Telephone Internal Medicine - [address] [phone] Lee Fabian MD [address] [place] [phone] Faxed Order ([facility] (Cert/POC /2-12/29)) Social History Tobacco Use [...] - 11/05/2024 3:35 PM EST [facility] Lee [facility] bin. Please complete and fax back to [phone]. Thank you. documented in this encounter Plan of Treatment Upcoming Encounters Date Type Department Care Team (Late st Contact Info) Description 12/06/2024 10:30 AM EDT Office Visit Internal Medicine - [address] [address] Lee Fabian MD [address] [place] [address] [place] [address] documented as of this encounter Goals Goal [...] needed on impact of smoking on wound uSsan Allison RN Reduce tobacco use (cigarettes, smokeless, [...] documented as of this encounter Care Teams Ground Crewman Mission Support Relationship Specialty Start Date End Date Lee Fabian MD [address] [place] [address] PCP - General Internal Medicine 08/03/24 documented as of this encounter
--- OUTSIDE RECORDS SUMMARY | 2024-12-03 15:25 | XMS_ITS | Encounter Summary ---
Author Organization [facility] Address [address] [place] [address] Care Team Providers Care Unit Assembler Name Role Phone Lee Fabian MD Primary Care Provider [phone] Encounter Details Date Type Department Care Team (Late st Contact Info) Description 11/19/2024 Telephone Infectious Disease - [facility] [address] [place] [address] Marlin Keene RN Social History Tobacco [...] PM EST We received a call from [facility]. They are making plans to discharge patient and wanted tosee if Dr. Coffey could follow him. Dr. Coffey reviewed the case. Unfortunately his situation is complex and it was felt that we did not have the resources to handle. Dr. Coffey spoke with Dr. Bibi Busby. I spoke with patient. He understood, but was not happy in [facility]. He is an employee at [employer] and will seek out continued care there. documented in this encounter Plan of Treatment Upcoming Encounters Date Type Department Care Team (Late st Contact Info) Description 12/06/2024 10:30 AM EDT Office Visit Internal Medicine - [address] [phone] Lee Fabian MD [address] [place] [address] documented as of this encounter Goals Goal [...] documented as of this encounter Care Teams Unit Assembler Relationship Specialty Start Date End Date Lee Fabian MD [address] [place] [address] PCP - General Internal Medicine 08/03/24 documented as of this encounter
--- OUTSIDE RECORDS SUMMARY | 2024-12-03 15:25 | XMS_ITS | Encounter Summary ---
Author Organization [facility] Address [address] [place] [address] Care Team Providers Care Instrument Fitter Name Role Phone Lee Fabian MD Primary Care Provider [phone] Reason for Visit * Reason Comments Home Health Cert Encounter Details Date Type Department Care Team (Late st Contact Info) Description 11/11/2024 Billing Patient Not Present [facility] [address] [place] [phone] Lee Fabian MD [address] [place] [address] Encounter for change or removal of surgical wound dressing (Primary Dx); Encounter for surgical aftercare following surgery on the skin and subcutaneous tissue; Type 2 diabetes mellitus with other specified complication, 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 (CMS/[facility]); Other acute osteomyelitis, left ankle and foot ([facility]); Type 2 diabetes mellitus with diabetic peripheral angiopathy with gangrene, 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 (CMS/[facility]); 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 (CMS/[facility]); Other specified bacterial agents as the cause of diseases classified elsewhere; Type 2 diabetes mellitus with foot ulcer, unspecified whether halfway insulin use (CMS/HCC); Non-pressure chronic ulcer of right heel and midfoot with fat layer exposed (CMS/HCC); Type 2 diabetes mellitus with diabetic neuropathic arthropathy, 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 (CMS/[facility]) Social History Tobacco Use Types Packs/Day Years [...] 11/09/24 Hospice patient: No Home Care Agency: [facility] Recertification Code [id number] Initial Code G0180 documented in this encounter Plan of Treatment Upcoming Encounters Date Type Department Care Team (Late st Contact Info) Description 12/06/2024 10:30 AM EDT Office Visit Internal Medicine - [address] [address] Lee Fabian MD [address] [place] [address] documented as of this encounter Goals Goal [...] mellitus with other specified complication, unspecified whether halfway insulin use ([facility]) Other acute osteomyelitis, left ankle and foot ([facility]/HCC) Type 2 diabetes mellitus with diabetic peripheral angiopathy with gangrene, unspecified whether halfway insulin use ([facility]) 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 ([facility]) Other specified bacterial agents as the cause of diseases classified elsewhere Type 2 diabetes mellitus with foot ulcer, unspecified whether halfway insulin use ([facility]) Non-pressure chronic ulcer of right heel and midfoot with fat layer exposed ([facility]) Type 2 diabetes mellitus with diabetic neuropathic arthropathy, unspecified whether halfway insulin use ([facility]) documented in this encounter Additional Health Concerns Active Problems Noted Date Diagnosed Date Impaired Tissue 08/10/2024 Education needed on impact of smoking on wound 1 10/10/2023 Education needed related to ulceration/compromised skin integrity. 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
--- OUTSIDE RECORDS SUMMARY | 2024-12-03 15:25 | XMS_ITS | Encounter Summary ---
Author Organization [facility] Address [address] [place] [address] Care Team Providers Care Commercial Title Examiner Name Role Phone Lee Fabian MD Primary Care Provider [phone] Reason for Visit * Reason Onset Date Comments Faxed Order 11/26/2024 Driss BLACKMAN Encounter Details Date Type Department Care Team (Late st Contact Info) Description 11/26/2024 Telephone Internal Medicine - [address] [address] Lee Fabian MD [address] [place] [address] Faxed Order (Driss BLACKMAN ) Social History [...] - 11/26/2024 2:38 PM EST [facility]. Please complete and fax back to [phone]. Thank you. documented in this encounter Plan of Treatment Upcoming Encounters Date Type Department Care Team (Late st Contact Info) Description 12/06/2024 10:30 AM EDT Office Visit Internal Medicine - [address] [phone] Lee Fabian MD [address] [place] [address] documented as of this encounter Goals Goal [...] documented as of this encounter Care Teams Commercial Title Examiner Relationship Specialty Start Date End Date Lee Fabian MD [address] [place] [address] PCP - General Internal Medicine 08/03/24 documented as of this encounter
--- OUTSIDE RECORDS SUMMARY | 2024-12-03 15:26 | XMS_ITS | Encounter Summary ---
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 (CMS/HCC) Procedures Wound Snap Vacuum Diabetic Ulcer Left;Plantar Heel Jose Murguia PA [address] [place] [address] Phone: tel: fax: Referral ID Status Reason Start Date Expiration Date V isits Requested Visits Authorized [id number] Pending Review 10/27/2024 10/27/2025 1 1 Reason for Visit * Reason Comments Wound Care Encounter Details Date Type Department Care Team (Late st Contact Info) Description 10/27/2024 11:00 AM EST Office Visit [facility] [address] [place] [id number] Jose Murguia PA [address] [place] [address] Type 2 diabetes mellitus with foot ulcer [...] any questions or concerns, please contact the [facility] at . It [...] with Dr. Whelan on November 02, 2024 Penitentiary: Home care: Driss BLACKMAN Additional Orders: Wound [...] please remove / unwrap compression and notify [facility] . ) [...] [facility] [place] [address] Office Visit Visit Date: 10/27/2024 Patient Name: [...] cm^3 111.36 cm^3 Wound Healing % -- -[id number] Drainage Description Serosanguineous Serosanguineous Drainage Amount Moderate [...] AM Wound Image Wound Bed Tissue Assessment Gu-Win Epithelialization Ariana-Wound Assessment Dry Scarred Shape Irregular [...] Infection and pain Alternatives discussed: Delayed treatment [place] protocol: Procedure explained and questions answered to [...] dictate portions of this document. Errors in older worker specialist may be present. Please reach out to me if any questions. * OPOJA Conley - 10/27/2024 11:00 AM ESTAssociated Order(s): [...] [facility] [place] [address] Office Visit Visit Date: 10/27/2024 Patient Name: [...] discussed with Dr. Camejo of orthopedics at [facility]. Patient currently admitted atthis time to [facility] for below the knee amputation. Culture [...] cm^3 111.36 cm^3 Wound Healing % -- -[id number] Drainage Description Serosanguineous Serosanguineous Drainage Amount Moderate [...] Inpatient Follow-Up 2 Wounds Associated Routine Completed OPOJA Yeh - Reason for Consult?: diabetic ulcer [...] any questions or concerns, please contact the [facility] at . It [...] with Dr. Whelan on November 02, 2024 Penitentiary: Home care: Dirss BLACKMAN Additional Orders: Wound culture taken and [...] please remove / unwrap compression and notify [facility] . ) [...] Cleanse with Normal Saline Periwound: N/A Topical: BookBottles gel- Apply a thin layer to wound [...] dictate portions of this document. Errors in older worker specialist may be present. 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 These results have been appended to the previously preliminary verified report. Edited result: Previously reported as Staphylococcus aureus on 10/29/2024 at 1226 EST. Culture, Wound Enterococcus faecalis(A) PATTI 10/30/2024 12:[address] [facility] Comment: The organism value for this result has been updated. These results have been appended to the previously preliminary verified report. Edited result: Previously reported as Gram Positive Cocci on 10/29/2024 at 1226 EST. Culture, Wound Vancomycin resistant Enterococcus faecium(A) PATTI 10/30/2024 12:[address] [facility] Comment: The organism value for this result has been updated. These results have been appended to the previously preliminary verified report. Edited result: Previously reported as Gram Positive Cocci on 10/30/2024 at 1235 EST. Culture, Wound Corynebacterium species(A) PATTI 10/30/2024 12:[address] [facility] Comment: The organism value for this result has been updated. These results have been appended to the previously preliminary verified report. Gram Stain Result Moderate Polymorphonuclear leukocytes(A) 10/30/2024 12:[address] [facility] Gram Stain Result Many Gram positive cocci in pairs and clusters(A) 10/30/2024 12:[address] [facility] Gram Stain Result Few Gram negative bacilli(A) 10/30/2024 12:50 PM [facility] Gram Stain Result No epithelial cells seen(A) 10/30/2024 12:50 PM [facility] Swab Structure of left foot [...] LAB MICROBIOLOGY - GENERAL ORDERABLES Final Result [facility] [address] [place] [address], * Debridement Diabetic Ulcer Left Toe D5, [...] 2 diabetes mellitus with foot ulcer (CODE) ([facility])- Primary ISTAP type 3 skin tear of left forearm Non-healing surgical wound, subsequent encounter Non-pressure chronic ulcer of other part of right foot with fat layer exposed (CMS/HCC) 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
--- OUTSIDE RECORDS SUMMARY | 2024-12-03 15:26 | XMS_ITS | Clinical Summary ---
Author Organization [facility] Address [address] [place] [address] Care Team Providers Care Claim Agent Name Role Phone Lee Fabian MD Primary Care Provider Vitaliy Fields MD Unavailable Dallas Camejo MD Unavailable Rolando Lopez MD Unavailable Cesar Fair MD Unavailable Daisy Her PT Unavailable Allergies Active Allergy [...] Continuous Glucose Sensor (FreeStyle Wallace 3 Sensor) [facility] [place] 1 DEVICE INTO THE SKIN EVERY [...] amputation of left lower extremity, initial encounter ([facility]) Take 1 tablet (500 mg total) by mouth 4 (four) times a day. 28 tablet 12/01/19 25 Active HYDROmorphone (DILAUDID) 2 MG tabletIndications: Below-knee amputation of left lower extremity, initial encounter ([facility]) Take 1 tablet (2 mg total) by mouth 4 times daily (every 6 hours) as needed for severe pain or moderate pain. Max Daily Amount: 8 mg 28 tablet 12/01/19 Active SUPPLY DME MISCIndications:Be low-knee amputation of left lower extremity, initial encounter ([facility]) BELOW KNEE PROSTHESIS S/P LEFT BKA 11/05/24 [...] nephrotoxic medications. Follows with Dr. Lopez in [place]. See last note 06/07/24. Hyperlipidemia Assessment & Plan (09/03/2024 9:20 AM EST): Continue pravastatin. Smoker Assessment & Plan (09/03/2024 9:21 AM EST): Smoking? Complete AV block Assessment & Plan (09/03/2024 9:22 AM EST): S/p pacemaker & watchman device. No remote monitoring per last cardiology note. Cardiology appt pending. Atrial flutter Encounters Date Type Department Care Team Description 12/02/2024 Telephone [facility] at [facility] [address] [place] [phone] Christen Whitney MA Referral 12/01/2024 Orders Only [facility] [address] [place] [phone] Dallas Camejo MD Below-knee amputation of left lower extremity, initial encounter (HCC) (Primary Dx) 12/01/2024 Documentation [facility] [address] [phone] Daisy Her, PT 11/30/2024 1:15 PM EST Office Visit [facility] [place] [address] [facility] [address] [place] [address] Sheila Childs APRN Below-knee amputation of left lower extremity, initial encounter (HCC) (Primary Dx) 11/23/2024 Telephone [facility] Infectious Disease [address] [place] [address] Nilton Zepeda MA Call Patient 11/19/2024 1:30 PM EST - 11/19/2024 2:30 PM EST Surgery [facility] Radiology [address] [place] [address] Devno Vogt DO CVC INSERT (TUNNEL)W/O PORT > 5 YRS 11/19/2024 Telephone [facility] [place] [place] [address] [place] [address] Nilton Zepeda MA Appointment 11/18/2024 Orders Only [facility] [place] [facility] - Electrophysiology Laboratory [address] [place] [phone] Lucho Ceron MD 11/17/2024 2:20 PM EST Anesthesia Event [facility] Perioperative Surgical Services [address] [place] [phone] Guido Malagon MD Gordon, Jennifer L, PA-C 11/17/2024 1:37 PM EST - 11/17/2024 4:43 PM EST Surgery [facility] [address] [place] [phone] Rui Pabon MD Extraction lead(s) laser from dual PM system; [id number] 11/17/2024 Orders Only [facility] [place] - Electrophysiology [address] [facility] [address] [place] [phone] Gretel Hinds APRN Complete AV block (HCC) (Primary Dx); Presence of permanent cardiac pacemaker; Bacteremia 11/11/2024 2:09 PM EST Anesthesia Event [facility] [place] [facility] - Echocardiography Laboratory [address] [place] [phone] Hong Nance MD 11/11/2024 Travel 11/05/2024 1:32 PM EST Anesthesia Event [address] [phone] Juaquin Rueda MD Ritchie, Agatha T, PA-C 11/05/2024 1:15 PM EST Anesthesia Event [address] [phone] Gaston Martinez MD Calitri, Nicholas, MD 11/05/2024 12:52 PM EST - 11/05/2024 3:28 PM EST Surgery [address] [phone] Dallas Camejo MD LEFT BELOW KNEE AMPUTATION 11/04/2024 Travel 11/02/2024 6:10 PM EST - 11/25/2024 7:51 PM EST Hospital Encounter [facility] [address] [place] [address], [place] [address] Dallas Camejo MD Adekolu, Olurotimi O, MD Zafar, Jawad, MD Pokhrel, Kamal, MD Iftikhar, MD Bryn Lyons Gagan, MD Madhusudana, MD Marli Barney Kareem A, MD El Iskandarani, Mahmoud, MD Acute osteomyelitis of left calcaneus (HCC) (Primary Dx); Pacemaker infection, subsequent encounter; Endocarditis; Acute bacterial conjunctivitis of right eye; Bacteremia Discharge Disposition: Home with Health Care Services 11/02/2024 9:15 AM EST [facility] [address] [address] Dallas Camejo MD Acute osteomyelitis of left calcaneus (HCC) (Primary Dx) 11/02/2024 8:55 AM EST Ancillary Procedure [facility] [address] [place] [address] 10/19/2024 10:30 AM EST [facility] [address] [address] Dallas Camejo MD Acute osteomyelitis of left calcaneus (HCC) (Primary Dx) 10/19/2024 10:20 AM EST Ancillary Procedure [facility] [address] [address] 10/19/2024 Scanned Document [facility] [address] [address] SurjitAlejandra 10/19/2024 Scanned Document [facility] [address] [place] [address] Surjit Alejandra 10/05/2024 10:45 AM EST Ancillary Procedure [facility] [address] [address] 10/05/2024 10:15 AM EST [facility] [address] [address] Sheila Childs APRN Pain of foot, unspecified laterality (Primary Dx); Acute osteomyelitis of left calcaneus (HCC); Other chronic osteomyelitis of foot, unspecified laterality (HCC) 09/17/2024 [facility] [address] [phone] Dallas Camejo MD 09/15/2024 11:11 AM EST Anesthesia Event [facility] Perioperative Surgical Services [address] [place] [phone] Susan Lundberg DO Gordon, Donald E, PA-C 09/15/2024 9:30 AM EST - 09/15/2024 11:30 AM EST Surgery [facility] [address] [place] [phone] Delbert Mcintosh MD LEFT LOWER EXTREMITY ANGIOGRAM 09/10/2024 10:39 AM EST Anesthesia Event [facility] [place] at [address] [place] [phone] Honey Easton MD 09/10/2024 10:00 AM EST - 09/10/2024 12:00 PM EST Surgery [facility] [place] at [address] [place] [address] Dallas Camejo MD ANKLE PARTIAL CALCANECTOMY 09/10/2024 9:16 AM EST Anesthesia Event [facility] [place] at [address] [place] [address] David Kelsey MD 09/10/2024 8:01 AM EST - 09/16/2024 3:11 PM EST Hospital Encounter [facility] [address] [place] [address], [place] [address] Dallas Camejo MD Other chronic osteomyelitis of foot, unspecified laterality (HCC) (Primary Dx) Discharge Disposition: Home with Health Care Services 09/10/2024 Travel from Last 3 Months Social History Tobacco Use Types Packs/Day Years Used Date Smoking Tobacco: Former Cigarettes 1 29.2 1 977 - 2004 Smokeless Tobacco: Never Tobacco Cessation:Counseling Given: Yes Alcohol Use Standard Drinks/Week Comments Yes 21 (1 standard drink = 0.6 oz pu re alcohol) [facility] Utilities Answer Date Recorded In the past 12 months has [employer], gas, oil, or water [employer] threatened to shut off services in your [...] Description 12/07/2024 1:30 PM EDT Appointment [facility] [place] - Electrophysiology [address] [place] [address] Gretel Hinds, CHILDCARE DIRECTOR [address] [address] 12/14/2024 2:00 PM EDT Office Visit [facility] [address] [phone] Dallas Camejo MD 7 [place], [place] [phone] 12/16/2024 8:30 AM EDT Office Visit [facility] Infect[facility] Disease [address] [place] [address] Ena Mtz MD [address] [place], [place] [phone] Health Maintenance Due Date Last Done Comments [...] 60-74 years 1-dose series) 2020 COVID-19 Vaccine (2023- season) 2024 07/08/2023, 08/15/2021, 01/16/2021, Additional history exists Hemoglobin A1C 12/02/2024 09/03/2024 Creatinine with GFR 11/24/2025 11/24/2024, 11/23/2024, 11/22/2024, Additional history exists Influenza Vaccine Completed 06/22/2024, , 07/08/2023, Additional history exists Hepatitis B Vaccines Aged Out No long er eligible based on patient's age to complete this topic Medical Devices Implanted Type Area Electrical Equipment Assembler Device Identifier Shelf Expiration Date Model / Serial / Lot [id number] Pacemaker Cardiac Micra Av2 Ldls Bndl - [id number] Implanted:Qty : 1 on 11/17/2024 by Rui Pabon MD at [facility] Pacemaker Left: Chest [employer] [id number] 02/09/2026 [id number] / [id number] / Explanted Type Area Electrical Equipment Assembler Device Identifier Shelf Expiration Date Model / Serial / Lot 5076-52 Lead Pacing 52cm 6.2fr 2mm 10mm Spc Sm Straight Atr Vntr-10/26/2015 Implanted:10/26 (Quantity not on file) Explanted:Qty: 1 on 11/17/2024 by Rui Pabon MD Lead [employer] [id number] / [id number] / 5076-58 Lead Pacing 58cm 6.2fr 2mm 10mm Spc Sm Straight Atr Vntrc-10/26/2015 Implanted:10/26 (Quantity not on file) Explanted:Qty: 1 on 11/17/2024 by Rui Pabon MD Lead [employer] [id number] / [id number] / [id number] Pacemaker Cardiac Advisa Dr Lewis Surescan 2 Chamber Digital-10/26/19 16 Implanted:10/26 (Quantity not on file) Explanted:Qty: 1 on 11/17/2024 by Rui Pabon MD Pacemaker [employer] [id number] / [id number] / Procedures Procedure Name Priority Date/Time Associated [...] AM EST PM SINGLE LEAD EVAL WITH PROGRAM,[id number] Routine 11/18/2024 7:45 AM EST CREATINE KINASE [...] EST PM DUAL LEAD EVAL WITH PROGRAMMING, [id number] Routine 11/12/2024 1:15 PM EST POCT GLUCOSE, [...] EST PM DUAL LEAD EVAL WITH PROGRAMMING, [id number] Routine 11/11/2024 4:33 PM EST ECHOCARDIOGRAM TRANSESOPHAGEAL [...] ANES INTUBATION Routine 09/10/2024 11:12 AM EST IL NEGATIVE PRESSURE WOUND THERAPY DME <= 50 SQ CM 09/10/2024 10:23 AM EST Osteomyelitis of left ankle, unspecified type (HCC) Special Needs GENERAL , POPLITEAL/ SAPHENOUS , LATERAL BEANBAG, MINI C-ARM, MICROSAGITAL SAW, STIMULANT BEADS (PT Needs Hillrom/Telecommunications Engineer Bed) IL OSTECTOMY CALCANEUS 09/10/2024 10:23 AM EST Osteomyelitis of left ankle, unspecified type (HCC) Special Needs GENERAL , POPLITEAL/ SAPHENOUS , LATERAL BEANBAG, MINI C-ARM, MICROSAGITAL SAW, STIMULANT BEADS (PT Needs Hillrom/Telecommunications Engineer Bed) ANES BLOCK - LOWER EXTREMITY Routine 09/10/2024 9:41 AM EST POCT GLUCOSE, FINGERSTICK (CHARGE) Routine 09/10/2024 9:25 AM EST POCT GLUCOSE, FINGERSTICK (CHARGE) Routine 09/10/2024 8:51 AM EST POCT GLUCOSE, FINGERSTICK (CHARGE) Routine 09/10/2024 8:42 AM EST CARDIOLOGY PROCEDURE REPORT 09/09/2024 IMAGING-SCAN 09/09/2024 ECG 12-LEAD 09/06/2024 HEMOGLOBIN A1C WITH ESTIMATED AVERAGE GLUCOSE Routine [...] AV block (HCC) from Last 3 Months or Most Recently Relevant to Health Maintenance Results * (ABNORMAL) POCT Glucose, Fingerstick (11/25/2024 [...] PM EST) 11/24/2024 12:0 1 PM EST Corbindenise Lamb [facility] POCT ORDERABLES - DEVICE * (ABNORMAL) Complete Blood Count WITHOUT Differential - in AM (11/24/2024 6:56 AM EST) Only the most recent of21 resultswithin the time period is included. White Blood Cell Count 10.0 4.0 - 11.0 Thou/uL 11/24/2024 9:12 AM [facility] Platelet Count 366 150 - 450 Thou/uL 11/24/2024 9:12 AM [facility] Hemoglobin 9.0(L) 13.0 - 17.7 g/dL 11/24/2024 9:12 AM [facility] Hematocrit 29.5(L) 39.0 - 54.0 % 11/24/2024 9:12 AM [facility] Red Blood Cell Count 3.25(L) 4.50 - 6.20 Mil/uL 11/24/2024 9:12 AM [facility] MCV 91 80 - 100 fL 11/24/2024 9:12 AM [facility] MCH 27.7 27.0 - 31.0 pg 11/24/2024 9:12 AM [facility] MCHC 30.5 30.0 - 36.0 g/dL 11/24/2024 9:12 AM [facility] RDW 18.0(H) 11.5 - 14.5 % 11/24/2024 9:12 AM [facility] MPV 10.8 7.5 - 12.5 fL 11/24/2024 9:12 AM [facility] Blood Blood specimen / Unknown 11/24/2024 6:56 AM EST 11/24/2024 8:52 AM EST Gianluca Calles MD LAB BLOOD ORDERABLES [facility] [address] [place] [address], [facility] [address] [place] [address] * (ABNORMAL) Comprehensive Metabolic Panel (AM) (11/24/2024 6:56 AM EST) Only the most recent of4 resultswithin the time period is included. Glucose 99 65 - 99 mg/dL 11/24/2024 9:28 AM [facility] Comment:Fasting: <100 mg/dL, Non-Fasting: <200 mg/dL (ADA 2004) Blood Urea Nitrogen (BUN) 35(H) 8 - 21 mg/dL 11/24/2024 9:28 AM [facility] Creatinine 1.6(H) 0.5 - 1.3 mg/dL 11/24/2024 9:28 AM [facility] eGFR 48(L) >59 11/24/2024 9:28 AM [facility] Comment:CKD-EPI (2020) in mL /min/1.73 sq meters. Sodium 139 136 - 145 mmol/L 11/24/2024 9:28 AM [facility] Potassium 3.8 3.4 - 5.3 mmol/L 11/24/2024 9:28 AM [facility] Chloride 102 98 - 107 mmol/L 11/24/2024 9:28 AM [facility] CO2 24 22 - 33 mmol/L 11/24/2024 9:28 AM [facility] Calcium 8.9 8.7 - 10.5 mg/dL 11/24/2024 9:28 AM [facility] Alkaline Phosphatase 97 45 - 128 U/L 11/24/2024 9:28 AM [facility] Aspartate Aminotrans (AST) 14 10 - 55 U/L 11/24/2024 9:28 AM [facility] Alanine Aminotrans (ALT) 20 10 - 55 U/L 11/24/2024 9:28 AM [facility] Bilirubin, Total 0.2 0.2 - 1.0 mg/dL 11/24/2024 9:28 AM [facility] Protein, Total 6.7 6.3 - 8.3 g/dL 11/24/2024 9:28 AM [facility] Albumin 3.1(L) 3.4 - 4.8 g/dL 11/24/2024 9:28 AM [facility] BUN/Creatinine Ratio 22 10.0 - 25.0 Ratio 11/24/2024 9:28 AM [facility] Globulin 3.6 1.5 - 3.9 g/dL 11/24/2024 9:28 AM [facility] Albumin/Globulin Ratio 0.9(L) 1.0 - 3.0 Ratio 11/24/2024 9:28 AM [facility] Anion Gap 13 7 - 17 11/24/2024 9:28 AM [facility] Blood Blood specimen / Unknown 11/24/2024 6:56 AM EST 11/24/2024 8:52 AM EST Gianluca Calles MD LAB BLOOD ORDERABLES Performing Organization Address [facility] [place] [address], [place] [address] * Influenza A/B, RSV, SARS-CoV-2 BALJINDER Multiplex (FLUVID) (11/23/2024 10:45 AM EST) Influenza A Virus Not Detected Not Detected 11/23/2024 12:00 PM [facility] Influenza B Virus Not Detected Not Detected 11/23/2024 12:00 PM [facility] SARS-CoV-2 Not Detected Not Detected 11/23/2024 12:00 PM [facility] Respiratory Syncytial Virus Not Detected Not Detected 11/23/2024 12:00 PM [facility] Comment Negative results do not preclude SARS-CoV-2, Influenza or RSV infection and should not be used as the sole basis for treatment or other patient management decisions. 11/23/2024 12:00 PM [facility] Swab, Nasopharyngeal Nasopharyngeal swab / Unknown 11/23/2024 10:45 AM EST 11/23/2024 11:08 AM EST Gianluca Calles MD MICROBIOLOGY - GENER AL ORDERABLES Performing Organization Address [facility] [place] [address], [address] [address] * (ABNORMAL) Erythrocyte Sedimentation Rate (ESR) (11/23/2024 6:43 AM EST) Only the most recent of2 resultswithin the time period is included. Erythrocyte Sediment Rate (ESR) 62(H) <20 MM/HR 11/23/2024 12:07 PM EST [facility] Blood specimen / Unknown 11/23/2024 6:43 AM EST 11/23/2024 6:49 AM EST Gianluca Calles MD LAB BLOOD ORDERABLES Performing Organization Address City/[facility]/[place]IP [place] [address], [address] [address] * (ABNORMAL) C-REACTIVE PROTEIN (11/23/2024 6:43 AM EST) Only the most recent of2 resultswithin the time period is included. Pathologist [facility] C-Reactive Protein 4.88(H) 0 - 0.49 mg/dL 11/23/2024 11:53 AM EST [facility] 11/23/2024 6:43 AM EST 11/23/2024 6:49 AM EST Gianluca Calles MD [place] [address], [address] [address] * Magnesium (AM) (11/23/2024 6:43 AM EST) Only the most recent of24 resultswithin the time period is included. Magnesium 2.2 1.6 - 2.7 mg/dL 11/23/2024 7:22 AM EST [facility] Blood Blood specimen / Unknown 11/23/2024 6:43 AM EST 11/23/2024 6:49 AM EST Gianluca Calles MD LAB BLOOD ORDERABLES Performing Organization Address City/[facility]/[place]IP [place] [address], [place] [address] * CREATINE KINASE (CK) (11/23/2024 6:43 AM EST) Only the most recent of5 resultswithin the time period is included. Creatine Kinase (CK) 36 24 - 204 U/L 11/23/2024 11:53 AM [facility] 11/23/2024 6:43 AM EST 11/23/2024 6:49 AM EST Gianluca Calles MD LAB BLOOD ORDERABLES Performing Organization Address [facility] [place] [address], [place] [address] * (ABNORMAL) HEPATIC FUNCTION PANEL (11/23/2024 6:43 AM EST) Only the most recent of5 resultswithin the time period is included. Alkaline Phosphatase 103 45 - 128 U/L 11/23/2024 11:53 AM [facility] Aspartate Aminotrans (AST) 22 10 - 55 U/L 11/23/2024 11:53 AM [facility] Alanine Aminotrans (ALT) 28 10 - 55 U/L 11/23/2024 11:53 AM [facility] Bilirubin, Total 0.2 0.2 - 1.0 mg/dL 11/23/2024 11:53 AM [facility] Protein, Total 6.6 6.3 - 8.3 g/dL 11/23/2024 11:53 AM [facility] Albumin 3.1(L) 3.4 - 4.8 g/dL 11/23/2024 11:53 AM [facility] Bilirubin, Direct 0.1 0 - 0.2 mg/dL 11/23/2024 11:53 AM [facility] Globulin 3.5 1.5 - 3.9 g/dL 11/23/2024 11:53 AM [facility] Albumin/Globulin Ratio 0.9(L) 1.0 - 3.0 Ratio 11/23/2024 11:53 AM [facility] 11/23/2024 6:43 AM EST 11/23/2024 6:49 AM EST Gianluca Calles MD LAB BLOOD ORDERABLES [address] [address], [address] [address] * (ABNORMAL) Basic Metabolic Panel (AM) (11/23/2024 6:43 AM EST) Only the most recent of26 resultswithin the time period is included. Glucose 114(H) 65 - 99 mg/dL 11/23/2024 7:22 AM [facility] Comment:Fasting: <100 mg/dL, Non-Fasting: <200 mg/dL (ADA 2004) Blood Urea Nitrogen (BUN) 31(H) 8 - 21 mg/dL 11/23/2024 7:22 AM [facility] Creatinine 1.5(H) 0.5 - 1.3 mg/dL 11/23/2024 7:22 AM [facility] eGFR 52(L) >59 11/23/2024 7:22 AM [facility] Comment:CKD-EPI (2020) in mL /min/1.73 sq meters. Sodium 140 136 - 145 mmol/L 11/23/2024 7:22 AM [facility] Potassium 4.0 3.4 - 5.3 mmol/L 11/23/2024 7:22 AM [facility] Chloride 104 98 - 107 mmol/L 11/23/2024 7:22 AM [facility] CO2 25 22 - 33 mmol/L 11/23/2024 7:22 AM [facility] Anion Gap 11 7 - 17 11/23/2024 7:22 AM [facility] Calcium 9.0 8.7 - 10.5 mg/dL 11/23/2024 7:22 AM [facility] BUN/Creatinine Ratio 21 10.0 - 25.0 Ratio 11/23/2024 7:22 AM [facility] Blood Blood specimen / Unknown 11/23/2024 6:43 AM EST 11/23/2024 6:49 AM EST Gianluca Calles MD LAB BLOOD ORDERABLES [facility] [address] [place] [address], [address] [address] * PM LEADLESS SINGLE-CARDIAC CHAMBER EVAL W/PROGRAM (IN PERSON), [id number] (11/22/2024 2:20 PM EST) Date Time Interrogation Session [id number] PACEART Implantable Pulse Generator Electrical Equipment Assembler [employer] PACEART Implantable Pulse Generator Model [id number] Micra AV2 PACEART Implantable Pulse Generator Serial Number [id number] PACEART Implantable Pulse Generator Type Pacemaker PACEART [...] last reset 99.86 % PACEART Otf Statistic TABLE INSPECTOR Percent 100.00 % PACEART Otf Statistic VS Percent 0 % PACEART Anatomical Region Laterality Modality Other 11/22/2024 1:58 PM EST Narrative 11/28/2024 10:40 AM EST Micra AV leadless Pacemaker evaluation completed on B10E. Per patient request and verbal order from SHUBHAM Pitts: LRL increased from 50 bpm to 60 bpm. Presenting rhythm: AM/TABLE INSPECTOR @ 62 bpm. Underlying rhythm: CHB. AM/TABLE INSPECTOR pacing 81%, with total V-pacing 100%. Battery and testing results evaluated and within normal limits. Normal leadless pacemaker function. JOSUE Alvarenga Gianluca Calles MD CV CARDIAC SERVICES ORDERABLES * (ABNORMAL) Urinalysis with Reflex to Microscopic (11/19/2024 4:00 PM EST) Color Yellow 11/19/2024 4:30 PM [facility] Clarity Clear 11/19/2024 4:30 PM [facility] Specific [place] 1.008 1.003 - 1.030 11/19/2024 4:30 PM [facility] pH 6.0 5.0 - 8.0 11/19/2024 4:30 PM [facility] Leukocyte Esterase Large(A) Negative 11/19/2024 4:30 PM [facility] Nitrite Negative Negative 11/19/2024 4:30 PM [facility] Protein Negative Negative 11/19/2024 4:30 PM [facility] Glucose 0 0 - 99 mg/dL 11/19/2024 4:30 PM [facility] Ketones Negative Negative 11/19/2024 4:30 PM [facility] Blood Negative Negative 11/19/2024 4:30 PM [facility] Bilirubin Negative Negative 11/19/2024 4:30 PM [facility] WBC >25(H) 0 - 4 per hpf 11/19/2024 4:30 PM [facility] RBC 2 0 - 4 per hpf 11/19/2024 4:30 PM [facility] X-Specimen 16 Voided urine specimen / Unknown 11/19/2024 4:00 PM EST 11/19/2024 4:18 PM EST Anmol Reynoso MD URINE ORDERABLES [address] [address], [address] [address] * Urea Nitrogen, Urine, Random (11/19/2024 4:00 PM EST) Urea Nitrogen, Random Urine 273 mg/dL 11/19/2024 5:43 PM [facility] Comment:Reference range not established for random specimen. Urine Urine specimen / Unknown 11/19/2024 4:00 PM EST 11/19/2024 4:19 PM EST Anmol Reynoso MD URINE ORDERABLES Performing Organization Address [facility] Co de Phone Number [address] [address], [address] [address] * SODIUM, URINE, RANDOM (11/19/2024 4:00 PM EST) Sodium, Urine Random 21 mmol/L 11/19/2024 5:43 PM [facility] Comment:Reference range not established for random specimen. Urine Urine specimen / Unknown 11/19/2024 4:00 PM EST 11/19/2024 4:19 PM EST Anmol Reynoso MD URINE ORDERABLES Performing Organization Address [facility] [place] [address], [address] [address] * OSMOLALITY, URINE (11/19/2024 4:00 PM EST) Osmolality, Urine 201 50 - 1,200 mOsm/Kg 11/19/2024 6:20 PM [facility] Urine Urine specimen / Unknown 11/19/2024 4:00 PM EST 11/19/2024 4:19 PM EST Anmol Reynoso MD URINE ORDERABLES Performing Organization Address [facility] [place] [address], [address] [address] * CREATININE, URINE, RANDOM (11/19/2024 4:00 PM EST) Creatinine, Urine, Random 31 mg/dL 11/19/2024 5:43 PM [facility] Comment:Reference range not established for random specimen. Urine Urine specimen / Unknown 11/19/2024 4:00 PM EST 11/19/2024 4:19 PM EST Anmol Reynoso MD URINE ORDERABLES Performing Organization Address [facility] [place] [address], [place] [address] * Chloride, Urine, Random (11/19/2024 4:00 PM EST) Chloride, Urine, Random 23 mmol/L 11/19/2024 5:43 PM EST [facility] Comment:Reference range not established for random specimen. Urine Urine specimen / Unknown 11/19/2024 4:00 PM EST 11/19/2024 4:19 PM EST Anmol Reynoso MD URINE ORDERABLES Performing Organization Address [facility] [place] [address], [place] [address] * CVC INSERT (TUNNEL) W/O PORT GREATER [...] A preprocedure time-out was performed per [facility] protocol. The right neck and chest was [...] access, a 26 cm long dual lumen 5-Greek cuffed tunneled catheter was placed under fluoroscopic [...] A preprocedure time-out was performed per [facility] protocol. The right neck and chest was [...] access, a 26 cm long dual lumen 5-Greek cuffed tunneled catheter was placed under fluoroscopic [...] for use immediately. Alyssia PATTON CV ENDOVASCULAR ORDE CIELO * PM SINGLE LEAD EVAL WITH PROGRAM,[id number] (11/18/2024 7:45 AM EST) Date Time Interrogation Session ,220,07 3,509 PACEART Implantable Pulse Generator Electrical Equipment Assembler [employer] PACEART Implantable Pulse Generator Model [id number] Micra AV2 PACEART Implantable Pulse Generator Serial Number [id number] PACEART Implantable Pulse Generator Type Pacemaker PACEART [...] last reset 92.76 % PACEART Otf Statistic TABLE INSPECTOR Percent 99.88 % PACEART Otf Statistic VS Percent 0.12 % PACEART Anatomical Region Laterality Modality Other 11/18/2024 7:35 AM EST Narrative 11/19/2024 12:19 PM EST Pacemaker evaluation completed on B10E, device interrogation ordered for post-OP. Presenting rhythm: AM-TABLE INSPECTOR @ 69 bpm. Underlying rhythm: No ventricular response greater than 40 bpm. AM-TABLE INSPECTOR @ 84.8%. Battery and device parameters evaluated [...] APRN IMG DIAGNOSTIC SOCORRO GING ORDERABLES * EXTRACTION LEAD(S) LASER FROM DUAL PM [...] femoral venous access was obtained. ??A 12 Greek sheath was placed in the right femoral vein. ?? Through this an Amplatz stiff wire was advanced under fluoroscopic visualization to the right IJ. ??Using ultrasound-guided Seldinger technique left femoral venous access was obtained. ??8 Greek sheath was placed in left femoral vein. [...] support. ??We then began with a 14 Greek laser sheath. ??Under fluoroscopic visualization we started with the right ventricular lead. ?? 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 ??We were able to progress to the innominate area. ??Here we reached the innominate region and had significant fibrosis. ??We then remove the 14 Greek laser sheath and moved to the right [...] then used the right femoral venous 12 Greek sheath and Amplatz wire which was in [...] the right ventricle positioning on the septum. ??ADAEM and GUATEMALAN position confirmed our placement.We did an initial deployment here. ??Sensing of paced R wave was 12 mV. ??Device impedance was 520 ohms. ??Threshold was initially 1.5 V that decreased to 1.2 V. ??However remained at 1.2 V at 0.24 ms. ??We therefore retrieved the device back into the deploying sheath. ??We then moved the device slightly superior. ??AADME and GUATEMALAN position to confirm septal position. ??Initial testing [...] ??Z stitch was placed around the 8 Greek sheath as well and the sheath was removed. ??Manual pressure was also used to achieve hemostasis. ??Intraoperative TATIANNA revealed no pericardial effusion. ??No significant tricuspid regurgitation was noted. ??The new AV Micra was tracking his atrium nicely. ??He was then extubated and transferred to recovery in good condition. Corbin Lamb APRN CV ELECTROPHYSIOLO GY ORDERABLES * ANES LINE - ARTERIAL (11/17/2024 2:01 PM EST) Narrative Marlin Miner PA-C - 11/17/2024 2:01 PM EST Marlin Miner PA-C ? 11/17/2024 ??2:02 PM Anesthesia Procedure Note - Arterial Line Insertion- R radial Patient Name: Blas Crowe : 1960 Patient location: pre-op Indications: [...] device applied Marlin Miner PA-C [place] ANESTHESIA * Phosphorus (AM) (11/17/2024 8:16 AM EST) Only the most recent of17 resultswithin the time period is included. Phosphorus 3.5 2.7 - 4.5 mg/dL 11/17/2024 9:01 AM [facility] Blood (Plasma/Serum) 11/17/2024 8:16 AM EST 11/17/2024 8:30 AM EST Maddison Villalpando MD LAB BLOOD ORDERABLES Performing Organization Address City/State/[facility] [place] [address], [place] [address] * Type and Screen (11/16/2024 7:23 AM EST) Only the most recent of3 resultswithin the time period is included. ABO/Rh A POSITIVE 11/16/2024 8:39 AM [facility] Antibody Screen NEGATIVE 11/16/2024 8:53 AM [facility] Specimen Expiration 11/19/2024 11/16/2024 8:39 AM [facility] Unit Number [id number] 11/16/2024 9:12 AM [facility] Blood Component Type LEUKOREDUCED RED CELLS 11/16/2024 9:12 AM [facility] Unit Division 00 11/16/2024 9:12 AM [facility] Unit Status REL FROM ALLOC 2:05 AM [facility] Transfusion Status OK TO TRANSFUSE 11/16/2024 9:12 AM [facility] Crossmatch Result Electronically Compatible 11/16/2024 9:12 AM [facility] Unit Number [id number] 11/16/2024 9:12 AM [facility] Blood Component Type LEUKOREDUCED RED CELLS 11/16/2024 9:12 AM [facility] Unit Division 00 11/16/2024 9:12 AM [facility] Unit Status REL FROM ALLOC 2:05 AM [facility] Transfusion Status OK TO TRANSFUSE 11/16/2024 9:12 AM [facility] Crossmatch Result Electronically Compatible 11/16/2024 9:12 AM [facility] Unit Number [id number] 11/16/2024 9:12 AM [facility] Blood Component Type LEUKOREDUCED RED CELLS 11/16/2024 9:12 AM [facility] Unit Division 00 11/16/2024 9:12 AM [facility] Unit Status REL FROM ALLOC 2:05 AM [facility] Transfusion Status OK TO TRANSFUSE 11/16/2024 9:12 AM [facility] Crossmatch Result Electronically Compatible 11/16/2024 9:12 AM [facility] Unit Number [id number] 11/16/2024 9:12 AM [facility] Blood Component Type LEUKOREDUCED RED CELLS 11/16/2024 9:12 AM [facility] Unit Division 00 11/16/2024 9:12 AM [facility] Unit Status REL FROM ALLOC 2:05 AM [facility] Transfusion Status OK TO TRANSFUSE 11/16/2024 9:12 AM [facility] Crossmatch Result Electronically Compatible 11/16/2024 9:12 AM [facility] Blood Blood specimen / Unknown 11/16/2024 7:23 AM EST 11/16/2024 7:57 AM EST Comment:Blood Cristina Rodriguez APRN BLOOD BANK TEST OR DERABLES HOSPITAL LAB See Below [address] [address] * Prepare RBC's:Prepare in: Units; Number of Units: 4; Transfusion Indications: Hemoglobin less than 7 gm/dl or HCT less than 21% (11/15/2024 10:54 AM EST) Only the most recent of3 resultswithin the time period is included. Units Ordered 4 11/15/2024 11:04 AM EST Serum specimen / Unknown 11/15/2024 10:54 AM EST 11/16/2024 9:11 AM EST Cristina Rodriguez CHILDCARE DIRECTOR BLOOD BANK PRODUCT ORDERABLES HOSPITAL LAB See Below * (ABNORMAL) proBNP, N-terminal (11/15/2024 8:08 AM EST) Only the most recent of6 resultswithin the time period is included. proBNP, N-terminal 429(H) <125 pg/mL 11/15/2024 9:21 AM EST [facility] Blood Plasma specimen / Unknown 11/15/2024 8:08 AM EST 11/15/2024 8:57 AM EST Valencia Lau CHILDCARE DIRECTOR LAB BLOOD ORDERAB LES Performing Organization Address City/[facility] [place] [address], [place] [address] * MRI Brain w/o contrast (11/12/2024 1:43 [...] * PM DUAL LEAD EVAL WITH PROGRAMMING, [id number] (11/12/2024 1:15 PM EST) Date Time Interrogation Session 20,250,214,13 4,157 PACEART Implantable Pulse Generator Electrical Equipment Assembler [employer] PACEART Implantable Pulse Generator Model [id number] LEWIS PACEART Implantable Pulse Generator Serial Number [id number] PACEART Implantable Pulse Generator Type Pacemaker PACEART [...] reset 99.97 % PACEART Otf Statistic AP TABLE INSPECTOR Percent 76.74 % PACEART Otf Statistic TABLE INSPECTOR Percent 23.23 % PACEART Otf Statistic AP VS Percent 0.01 % PACEART Otf Statistic VS Percent 0.01 % PACEART AT/AF Jakin Percent 0 % PACEART Episode Statistic Recent [...] * PM DUAL LEAD EVAL WITH PROGRAMMING, [id number] (11/11/2024 4:33 PM EST) Date Time Interrogation Session 20,250,213,17 1,358 PACEART Implantable Pulse Generator Electrical Equipment Assembler [employer] PACEART Implantable Pulse Generator Model [id number] Jaime LEWIS PACEART Implantable Pulse Generator Serial Number [id number] PACEART Implantable Pulse Generator Type Pacemaker PACEART [...] reset 89.06 % PACEART Otf Statistic AP TABLE INSPECTOR Percent 62.37 % PACEART Otf Statistic TABLE INSPECTOR Percent 26.83 % PACEART Otf Statistic AP VS Percent 8.97 % PACEART Otf Statistic VS Percent 1.83 % PACEART AT/AF Jakin Percent 0 % PACEART Episode Statistic Recent [...] ordered for function. Presenting rhythm: AP / TABLE INSPECTOR @ 60 bpm. Underlying rhythm: SB @ [...] inserted atraumatically into the esophagus by the assistant portfolio manager. With the patient in a supine [...] change from prior study Nani Hollis PA-C [facility] NG ORDERABLES * (ABNORMAL) Procalcitonin (11/09/2024 10:04 AM EST) Procalcitonin 0.40(H) <0.09 ng/mL 11/09/2024 11:01 AM EST [facility] Comment: (NOTE) [...] City/State/[facility] [place] [address], [address] [address] * INSJ NON-TUNNELED CENTRAL VENOUS CATH AGE [...] to verify the correct patient, procedure, equipment, research support specialist and site/side marked as required. [...] 7.35 7.33 - 7.43 11/08/2024 6:00 PM [facility] Venous pCO2 49 35 - 50 mmHG 11/08/2024 6:00 PM [facility] Venous pO2 45 0 - 60 mmHG 11/08/2024 6:00 PM [facility] Venous Total CO2 28 23 - 29 mmol/L 11/08/2024 6:00 PM EST [facility] Respiratory Info NASAL 6 L/MIN 11/08/2024 5:29 PM EST Base Excess 0.9 mmol/L 11/08/2024 6:00 PM EST [facility] Comment:Reference Range: Neg ative 2 to Positive 3 Blood Blood specimen / Unknown 11/08/2024 5:46 PM EST 11/08/2024 5:55 PM EST Eunice Dedrakailey CHILDCARE DIRECTOR LAB BLOOD ORDERA BLES [address] [address], [address] [address] * CT Head w w/o contrast (11/08/2024 [...] Use of iterative reconstruction technique Kayla Orona CHILDCARE DIRECTOR G CT ORDERABLES * (ABNORMAL) High Sensitivity Troponin T (Once) (11/08/2024 12:05 AM EST) Only the most recent of3 resultswithin the time period is included. [facility] High Sensitivity Troponin T 26(H) <23 ng/L 11/08/2024 12:39 AM [facility] Delta (Change) NO CHANGE <3 11/08/2024 12:39 AM [facility] Blood (Plasma/Serum) 11/08/2024 12:05 AM EST 11/08/2024 12:16 AM EST [facility] [place] [address], [address] [address] * Respiratory PCR Panel (11/07/2024 6:30 PM EST) [facility] Adenovirus Not Detected Not Detected 11/08/2024 12:23 AM [facility] Coronavirus 229E Not Detected Not Detected 11/08/2024 12:23 AM [facility] Coronavirus HKU1 Not Detected Not Detected 11/08/2024 12:23 AM [facility] Coronavirus NL63 Not Detected Not Detected 11/08/2024 12:23 AM [facility] Coronavirus OC43 Not Detected Not Detected 11/08/2024 12:23 AM [facility] Human Metapneumovirus Not Detected Not Detected 11/08/2024 12:23 AM [facility] Rhinovirus/Enterov irus Not Detected Not Detected 11/08/2024 12:23 AM [facility] Influenza A Not Detected Not Detected 11/08/2024 12:23 AM [facility] Influenza B Not Detected Not Detected 11/08/2024 12:23 AM [facility] Parainfluenza 1 (PIV1) Not Detected Not Detected 11/08/2024 12:23 AM [facility] Parainfluenza 2 (PIV2) Not Detected Not Detected 11/08/2024 12:23 AM [facility] Parainfluenza 3 (PIV3) Not Detected Not Detected 11/08/2024 12:23 AM [facility] Parainfluenza 4 (PIV4) Not Detected Not Detected 11/08/2024 12:23 AM [facility] Respiratory Syncytial Virus Not Detected Not Detected 11/08/2024 12:23 AM [facility] Bordetella pertussis Not Detected Not Detected 11/08/2024 12:23 AM [facility] Chlamydophila pneumoniae Not Detected Not Detected 11/08/2024 12:23 AM [facility] Mycoplasma pneumoniae Not Detected Not Detected 11/08/2024 12:23 AM [facility] Bordetella parapertussis Not Detected Not Detected 11/08/2024 12:23 AM [facility] SARS CoV 2 Not Detected Not Detected 11/08/2024 12:23 AM [facility] X-Specimen 24 Nasopharyngeal swab / Unknown 11/07/2024 6:30 PM EST 11/07/2024 8:00 PM EST Kayla Orona APRN MICROBIOLOGY - GENER AL ORDERABLES [facility] [address] [place] [address], * ECG 12 lead (11/07/2024 2:58 PM EST) Only the most recent of4 resultswithin the time period is included. Systolic BP 116 mmHg EKG [facility] Diastolic BP 57 mmHg EKG [facility] Ventricular rate 62 BPM EKG [facility] Atrial rate 55 BPM EKG [facility] QRS duration 168 ms EKG [facility] Q-T interval 506 ms EKG [facility] QTC calculation (Bazett) 513 ms EKG [facility] R axis 104 degrees EKG [facility] T axis -39 degrees EKG [facility] 11/07/2024 2:58 PM EST Narrative EKG [facility] - 11/07/2024 6:25 PM EST Ventricular-paced [...] Camejo MD ECG ORDERABLES Performing Organization Address City/[facility]/ZIP Co de Phone Number [facility] * BLOOD CULTURE Peripheral (11/07/2024 1:02 PM EST) Only the most recent of8 resultswithin the time period is included. Culture Sterile after 5 days 11/12/2024 7:50 AM EST [facility] Microbiology Peripheral blood specimen / Unknown 11/07/2024 1:02 PM EST 11/07/2024 1:23 PM EST Chris Taylor MD LAB AMB MICRO ORDERA BLES [facility] [address] [place] [address], [place] * (ABNORMAL) Blood Gas, Arterial (STAT) (11/07/2024 12:36 PM EST) pH, Arterial 7.38 7.35 - 7.45 11/07/2024 1:02 PM [facility] pCO2, Arterial 36 32 - 45 mmHG 11/07/2024 1:02 PM [facility] pO2, Arterial 119(H) 75 - 95 mmHG 11/07/2024 1:02 PM [facility] CO2, Total 22 22 - 28 mmol/L 11/07/2024 1:02 PM [facility] Respiratory Info OTHER 11/07/19 12:36 PM EST Base Deficiency 3.5 mmol/L 1:02 PM [facility] Comment:Reference Range: Neg ative 2 to Positive 3 Blood Blood specimen / Unknown 11/07/2024 12:36 PM EST 11/07/2024 12:50 PM EST Kayla Orona APRN LAB [place] [address], [place] [address] * (ABNORMAL) Complete Blood Count WITH Differential - Early AM (11/06/2024 4:58 AM EST) Only the most recent of5 resultswithin the time period is included. White Blood Cell Count 11.9(H) 4.0 - 11.0 Thou/uL 11/06/2024 5:26 AM [facility] Platelet Count 346 150 - 450 Thou/uL 11/06/2024 5:26 AM [facility] Hemoglobin 8.7(L) 13.0 - 17.7 g/dL 11/06/2024 5:26 AM [facility] Hematocrit 27.9(L) 39.0 - 54.0 % 11/06/2024 5:26 AM [facility] Red Blood Cell Count 3.05(L) 4.50 - 6.20 Mil/uL 11/06/2024 5:26 AM [facility] MCV 92 80 - 100 fL 11/06/2024 5:26 AM [facility] MCH 28.5 27.0 - 31.0 pg 11/06/2024 5:26 AM [facility] MCHC 31.2 30.0 - 36.0 g/dL 11/06/2024 5:26 AM [facility] RDW 16.4(H) 11.5 - 14.5 % 11/06/2024 5:26 AM [facility] MPV 9.5 7.5 - 12.5 fL 11/06/2024 5:26 AM [facility] Neutrophils Auto 88.8 % 11/06/19 5:26 AM [facility] Immature Granulocytes 1.1 % 11/06/2024 5:26 AM [facility] Lymphocytes Auto 3.4 % 11/06/19 5:26 AM [facility] Monocytes Auto 6.6 % 11/06/2024 5:26 AM [facility] Eosinophils Auto 0.0 % 11/06/19 5:26 AM [facility] Basophils Auto 0.1 % 11/06/2024 5:26 AM [facility] Abs Neutrophils Auto 10.57(H) 2.00 - 7.50 Thou/uL 11/06/2024 5:26 AM [facility] Abs Immature Granulocytes 0.13(H) 0.00 - 0.10 Thou/uL 11/06/2024 5:26 AM [facility] Abs Lymphocytes Auto 0.41(L) 1.50 - 4.50 Thou/uL 11/06/2024 5:26 AM [facility] Abs Monocytes Auto 0.79 0.20 - 1.50 Thou/uL 11/06/2024 5:26 AM [facility] Abs Eosinophils Auto 0.00 0.00 - 0.70 Thou/uL 11/06/2024 5:26 AM [facility] Abs Basophils Auto 0.01 0.00 - 0.20 Thou/uL 11/06/2024 5:26 AM [facility] Blood Blood specimen / Unknown 11/06/2024 4:58 AM [facility] 11/06/2024 5:15 AM EST Renea PATTON LAB BLOOD ORDERABLES [address] [address], [address] [address] * ANES LINE - PERIPHERAL, SINGLE LUMEN (11/05/2024 3:11 PM EST) Only the most recent of2 resultswithin the time period is included. Narrative Juaquin Rueda MD - 11/05/2024 3:11 PM EST Juaquin Rueda MD ? 11/05/2024 ??3:11 PM Anesthesia Procedure Note - Peripheral IV Placement Patient Name: Blas Crowe : 1960 Patient location: OR Indication(s): surgery, fluid administration, IV medication and vascular access Performed by: Anesthesiologist ? Juaquin Rueda MD ? Procedure Preparation Skin prep: alcohol - completely dried prior to procedure Hand hygeine performed prior to needle/catheter insertion Sterile barriers in place: cap, gloves and mask Patient pre-procedure mental status: anesthetized Single lumen pxof-[id number] catheter system, 20 g, 1/2 in length, in right hand Insertion attempts: 1 Juaquin Rueda MD [place] ANESTHESIA * Block - Lower Extremity (11/05/2024 2:13 PM EST) Only the most recent of2 resultswithin the time period is included. Narrative Juaquin Rudea MD - 11/05/2024 2:13 PM EST Juaquin Rueda MD ? 11/05/2024 ??2:14 PM Anesthesia Procedure Note - Lower Extremity Block Patient Name: Blas Crowe : 1960 Patient location: pre-op Reason [...] procedure. Patient tolerated well. Gaston Martinez MD [place] ANESTHESIA * Pathology (11/05/2024 2:11 PM EST) Report [facility] CT HP-0254 ?? CLIA ID [id number] [address] [place] [address] ??[id number] [phone] Surgical Pathology Report PATIENT NAME: BLAS CROWE REC NUMBER: [id number] (AGE): 1960 (Age: 63) SPECIMEN NUMBER: [id number] DATE OBTAINED: 11/05/2024 DIAGNOSIS LEFT LOWER EXTREMITY, BELOW KNEE AMPUTATION: ??SEVERE PERIPHERAL ARTERIOSCLEROSIS WITH CALCIFICATION, GANGRENOUS ULCER OF FOOT WITH SEVERE ACUTE OSTEOMYELITIS. NEGATIVE AMPUTATION MARGIN. /11/16/2024 Electronically Signed Out ? SENA SHABAZZ MD COMMENT [id number], [id number] Clinical Information and History: Acute osteomyelitis of [...] other masses or lesions are grossly identified. ??[employer]el[employer] sections are submitted in A1 - ?? [...] Note - ??LMA insertion Patient Name: Blas Crowe : 1960 Patient location: OR Procedure [...] baseline Complications: no complications Juaquin Rueda MD [place] ANESTHESIA * Creatine Kinase, Reflex to CKMB (11/05/2024 7:12 AM EST) Creatine Kinase (CK) 49 24 - 204 U/L 11/05/2024 8:18 AM [facility] Blood (Plasma/Serum) 11/05/2024 7:12 AM EST 11/05/2024 7:46 AM EST Chris Taylor MD LAB BLOOD ORDERABLES Performing Organization Address City/State/[facility] [place] [address], [place] [address] * (ABNORMAL) PROTIME-INR (11/05/2024 7:12 AM EST) Only the most recent of3 resultswithin the time period is included. Anticoagulant Information not given 11/05/2024 7:47 AM [facility] Prothrombin Time (PT) 15.3(H) 10.0 - 13.5 seconds 11/05/2024 8:07 AM [facility] INR 1.3 11/05/2024 8:07 AM [facility] Comment:INR Therapeutic Rang es: Standard dose anticoagulant 2.0 to 3.0, High dose anticoagulant 2.5-3.5. Plasma specimen / Unknown 11/05/2024 7:12 AM EST 11/05/2024 7:46 AM EST Chris Taylor MD LAB BLOOD ORDERABLES [address] [address], [address] [address] * ECHOCARDIOGRAM COMPREHENSIVE (11/04/2024 9:05 AM EST) [...] ?Compared to previous outside study report from [facility] on 08/05/2024, Mitral and tricuspid regurgitation [...] Compared to previous outside study report from [facility] on 08/05/2024, Mitral and tricuspid regurgitation were not previously reported. Ena Mtz MD CV ECHO ORDERABL ES * MRSA PCR Screen, Qualitative (11/03/2024 3:24 AM EST) Pathologist [facility] MRSA Result Not Detected Not Detected 7:00 AM [facility] Comment:Performed by the Xpe rt MRSA NxG Assay X-Specimen 12 Specimen from nose / Unknown 11/03/2024 3:24 AM EST 11/03/2024 5:23 AM EST Kenzie PATTON MICROBIOLOGY - G[place] [address], [place] [address] * (ABNORMAL) Blood Culture ID PCR Panel (11/02/2024 8:00 PM EST) Pathologist [facility] BC ID PCR Result Summary Enterococcus faecalis Vancomycin resistance gene detected by molecular method. Please refer to detailed susceptibility results when available and suggest consultation with Infectious Diseases for management. 11/03/2024 6:06 PM [facility] BC ID PCR Result Summary Enterococcus faecium Vancomycin resistance gene detected by molecular method. Please refer to detailed susceptibility results when available and suggest consultation with Infectious Diseases for management. 11/03/2024 6:06 PM [facility] BC ID PCR Result Summary Methicillin Resistant Staph aureus (MRSA) 11/03/2024 6:06 PM [facility] Methicillin resistance gene mecA/C Detected(A) 11/03/2024 6:06 PM [facility] Vancomycin resistance genes Eugenia/B Detected(A) 11/03/2024 6:06 PM [facility] Enterococcus faecalis Detected(A) 11/03/2024 6:06 PM [facility] Enterococcus faecium Detected(A) 11/03/2024 6:06 PM [facility] Listeria monocytogenes Not Detected 11/03/2024 6:06 PM [facility] Staphylococcus Detected(A) 6:06 PM [facility] Staphylococcus aureus Detected(A) 11/03/2024 6:06 PM [facility] Staphylococcus epidermidis Not Detected 11/03/2024 6:06 PM [facility] Staphylococcus lugdunensis Not Detected 11/03/2024 6:06 PM [facility] Streptococcus Not Detected 6:06 PM [facility] Streptococcus agalactiae Not Detected 11/03/2024 6:06 PM [facility] Streptococcus pneumoniae Not Detected 11/03/2024 6:06 PM [facility] Streptococcus pyogenes Not Detected 11/03/2024 6:06 PM [facility] Acinetobacter calcoaceticus-bauma nnii complex Not Detected 11/03/2024 6:06 PM [facility] Bacteroides fragilis Not Detected 11/03/2024 6:06 PM [facility] Enterobacterales Not Detected 2024 6:06 PM [facility] Enterobacter cloacae complex Not Detected 11/03/2024 6:06 PM [facility] Escherichia coli Not Detected 2024 6:06 PM [facility] Klebsiella aerogenes Not Detected 11/03/2024 6:06 PM [facility] Klebsiella oxytoca Not Detected 01/2025 6:06 PM [facility] Klebsiella pneumoniae group Not Detected 11/03/2024 6:06 PM [facility] Proteus Not Detected 11/03/2024 6:06 PM [facility] Salmonella Not Detected 11/03/2024 6:06 PM [facility] Serratia marcescens Not Detected 01/2025 6:06 PM [facility] Haemophilus influenza Not Detected 11/03/2024 6:06 PM [facility] Neisseria meningitidis Not Detected 11/03/2024 6:06 PM [facility] Pseudomonas aeruginosa Not Detected 11/03/2024 6:06 PM [facility] Stenotrophomonas maltophilia Not Detected 11/03/2024 6:06 PM [facility] Fernanda albicans Not Detected 2024 6:06 PM [facility] Fernanda auris Not Detected 5 6:06 PM [facility] Fernanda glabrata Not Detected 2024 6:06 PM [facility] Fernanda krusei Not Detected 11/03/19 25 6:06 PM [facility] Fernanda parapsilosis Not Detected 11/03/2024 6:06 PM [facility] Cryptococcus neoformans/gattii Not Detected 11/03/2024 6:06 PM [facility] PCR ID Comment Antimicrobial resistance can occur via multiple mechanisms. A Not Detected result for antimicrobial resistance gene(s) does not indicate antimicrobial susceptibility. Subculturing is required for species identification and susceptibility testing of isolates. 11/03/2024 6:06 PM [facility] 11/02/2024 8:00 PM EST 11/02/2024 8:29 PM EST Kenzie PATTON MICROBIOLOGY - GENE RAL ORDERABLES [facility] [address] [place] [address], * Vitamin D, 25-Hydroxy (11/02/2024 8:00 PM EST) Vitamin D, 25-Hydroxy 50 30 - 100 ng/mL 11/02/2024 9:10 PM [facility] Blood (Plasma/Serum) 11/02/2024 8:00 PM EST 11/02/2024 8:23 PM EST Kenzie PATTON LAB BLOOD ORDERABLE S [address] [address], [address] [address] * (ABNORMAL) TRANSFERRIN (11/02/2024 8:00 PM EST) Transferrin 178(L) 200 - 360 mg/dL 11/03/2024 12:04 AM [facility] Blood (Plasma/Serum) 11/02/2024 8:00 PM EST 11/02/2024 8:22 PM EST Kenzie Mcknight Taylor PATTON LAB BLOOD ORDERABLE S [address] [address], [address] [address] * (ABNORMAL) Prealbumin (11/02/2024 8:00 PM EST) Prealbumin 7(L) 20 - 40 mg/dL 11/03/2024 12:04 AM [facility] Blood (Plasma/Serum) 11/02/2024 8:00 PM EST 11/02/2024 8:22 PM EST Kenzie Mcknight Taylor PATTON LAB BLOOD ORDERABLE S Performing Organization Address City/[facility]/[place] [address], [address] [address] * (ABNORMAL) Albumin (11/02/2024 8:00 PM EST) Albumin 3.2(L) 3.4 - 4.8 g/dL 11/03/2024 12:04 AM [facility] Blood (Plasma/Serum) 11/02/2024 8:00 PM EST 11/02/2024 8:22 PM EST Kenzie Mcknight Taylor PATTON [place] [address], [address] [address] * XR Foot 1 view-Left (11/02/2024 9:13 AM EST) Only the most recent of3 resultswithin the time period is included. Narrative [facility] - 11/02/2024 9:13 AM EST This exam was performed in office at [facility] and images reviewed by orthopedic provider. ??Any findings are documented within ambulatory encounter note on date of service. Dallas Camejo MD IMG DIAGNOSTIC IMAGI NG ORDERABLES Performing Organization Address [facility]/ZIP Co de Phone Number [facility] * Heparin Assay (Anti Xa) (09/16/2024 9:00 AM EST) Only the most recent of8 resultswithin the time period is included. Anti Xa Blood/anticoagula nt ratio of specimen is unsatisfactory for testing, please repeat. IU/mL 09/16/2024 9:56 AM EST [facility] Anticoagulant IV HEPARIN, UNFRACTIONATED 09/16/2024 8:48 AM EST Blood Plasma specimen / Unknown 09/16/2024 9:00 AM EST 09/16/2024 9:25 AM EST Dallas Camejo MD LAB BLOOD ORDERABLES Performing Organization Address [facility] [place] [address], [address] [address] * Lactate (09/16/2024 8:47 AM EST) Lactic Acid 1.4 0.5 - 1.9 mmol/L 09/16/2024 10:01 AM EST [facility] Blood Plasma specimen / Unknown 09/16/2024 8:47 AM EST 09/16/2024 9:27 AM EST Valentine Rosado PA-C LAB BLOOD ORDERABLE S Performing Organization Address [facility] Co de Phone Number [address] [address], [address] [address] * AORTOGRAM- ABDOMINAL (09/15/2024 12:06 PM EST) [...] - 36 seconds 09/13/2024 4:18 PM EST [facility] Blood Plasma specimen / Unknown 09/13/2024 3:46 PM EST 09/13/2024 4:00 PM EST Alice Dobbins PA-C [place] [address], [place] [address] * Vas Arterial Duplex Leg-Limited Bilateral (09/13/2024 1:40 PM EST) Anatomical Region Laterality Modality Ultrasound 09/13/2024 11:3 0 AM EST Narrative 09/13/2024 1:54 PM EST Table formatting from the original result was not included. ?? Department: [facility] Patient: [id number] (BL[place] CROWE) ?? Patient Location: [place] [address] CPT Code: 38265 ICD-9: ?? Referring Physician: NOE Jorge Duplex [...] ??Right ??Left ?? PSV ??Impression ??PSV ??Impression SUPERVISOR SEWER MAINTENANCE ??100 ??Normal ??95 ??Normal PFA Prox ??104 ??Normal ??73 ??Normal SFA Prox ??105 ??Normal ??87 ??Normal Popliteal Artery Prox ??45 ??Normal ??73 ??Normal ?? Electronically Signed by: Delbert Mcintosh MD on 2024-09-13 01:54:51 PM End of Report Procedure Note Delbert Mcintosh MD - 09/13/2024 Department: [facility] Patient: [id number] (BL[place] CROWE) Patient Location: [place] [address] CPT Code: 90458 ICD-9: Referring Physician: NOE Jorge Duplex scan [...] Segment Right Left PSV Impression PSV Impression SUPERVISOR SEWER MAINTENANCE 100 Normal 95 Normal PFA Prox 104 Normal 73 Normal SFA Prox 105 Normal 87 Normal Popliteal Artery Prox 45 Normal 73 Normal Electronically Signed by: Delbert Mcintosh MD on 2024-09-13 01:54:51 PM End of Report Noe PATTON-Annemarie VASCULAR LAB ORDERAB LES * VAS ARTERIAL LEG MULTI LEVEL PRESSURES-BILATERAL (09/13/2024 1:39 PM EST) Anatomical Region Laterality Modality Ultrasound 09/13/2024 11:3 0 AM EST Narrative 09/13/2024 1:54 PM EST Table formatting from the original result was not included. ?? Department: [facility] Patient: [id number] (BL[place] CROWE) ?? Patient Location: [place] [address] CPT Code: 34920 ICD-9: ?? Referring Physician: NOE Jorge Right [...] Note Delbert Mcintosh MD - 09/13/2024 Department: [facility] Patient: [id number] ([place] CROW[place]) Patient Location: [facility] CPT Code: 07424 ICD-9: Referring Physician: NOE STEPHENS Impression Right lower extremity pulse volume recordings are [...] wounds/osteo COMPARISON: None TECHNIQUE: Initial noncontrast localizing esthetician and manager medical spa images were obtained. Timing boluses at the [...] wounds/osteo COMPARISON: None TECHNIQUE: Initial noncontrast localizing esthetician and manager medical spa images were obtained. Timing boluses at the [...] fluid collection. Fleischner guidelines were followed. Valentine Rosado PA-C [facility] ORDERABLES * XR OR Mini C-Arm NR (09/10/2024 1:17 PM EST) Leonor RAZIA - 09/16/2024 8:14 AM EST This order has been auto-finalized and does not contain a result. Dallas Camejo MD IMG FLUOROSCOPY PAMELA BUCK RAZIA [phone] * (ABNORMAL) ISTAT Glucose (09/10/2024 12:14 PM [...] after 7 days 09/17/2024 3:31 PM EST [facility] Bone (Ankle, left) 09/10/2024 11:39 AM EST Dallas Camejo MD MICROBIOLOGY - GENER AL ORDERABLES [facility] [address] [place] [address], * (ABNORMAL) Miscellaneous Aerobic Culture (09/10/2024 11:39 AM EST) Culture Vancomycin Resistant Enterococcus faecium (VRE)(A) 09/15/2024 8:24 AM EST [facility] Culture Staphylococcus epidermidis(A) 09/15/2024 8:24 AM EST [facility] Bone (Ankle, left) 09/10/2024 11:39 [...] - GENER AL ORDERABLES Performing Organization Address [facility]/ZIP Co de Phone Number [facility] [address] [place] [address], * Fungal Culture, Other Than Blood (09/10/2024 11:39 AM EST) Culture No fungus isolated 09/24/2024 10:28 AM EST [facility] Bone (Ankle, left) 09/10/2024 11:39 AM EST Dallas Camejo MD LAB AMB MICRO ORDERA BLES Performing Organization Address [facility] Co de Phone Number [facility] [address] [place] [address], [place] * IMAGING-SCAN (09/09/2024) Anatomical Region Laterality Modality Other Scan Cardiology HX AMB PROCEDURES * CARDIOLOGY PROCEDURE REPORT (09/09/2024) Anatomical Region Laterality Modality Other Narrative 09/09/2024 Ordered by an unspecified provider. Generic Provider [facility] ORDERABLES * (ABNORMAL) Hemoglobin A1c with Estimated Average Glucose (09/03/2024 2:40 PM EST) Hemoglobin A1C 8.7(H) <5.7 % 09/03/2024 7:00 PM EST [facility] Comment: A1c% ? Interpretation 5.7 - 6.0 ?Increase risk of diabetes 6.1 - 6.4 ?Higher risk of diabetes > or = 6.5 ?? Consistent with diabetes Diabetes Care, 33(Supp 1):S1-S61, 2010 Estimated Average Glucose 203 mg/dL 09/03/2024 7:00 PM EST [facility] Blood Blood specimen / Unknown 09/03/2024 2:40 PM EST 09/03/2024 5:55 PM EST Gilda Collier APRN LAB BLOOD ORDERABLES HOSPITAL LAB See Below [facility] HISTOCOMPATABILITY LAB [address], [place] from Last 3 Months or Most Recently Relevant to Health Maintenance Advance Directives Documents on File Type Date Recorded Patient Freelance Web Designer Expl anation Advance Directive-Scan 11/10/2024 Revoc ation of Health Care Proxy 11/10/24 Advance Directive-Scan 11/10/2024 Healt h Care Proxy [facility] 11/10/24 * Full Code (Latest Code Status [...] Healthcare Agent Relationship Communication Blas(SON) Sebastien Healthcare indirect sales representative 1. Health Care Freelance Web Designer Jessica Mello Healthcare indirect sales representative 1. Health Care Freelance Web Designer Care Teams Claim Agent Relationship Specialty Start Date End Date Lee Fabian MD [address] [place] [address] PCP - General Internal Medicine 09/02/24 Vitaliy Fields MD [address] [place] [address] Cardiovascular Disease 09/02/24 Dallas Camejo MD [address] [place] [address] Surgery, Orthopedic 09/02/24 Rolando Lopez MD [address] [facility] - Ph [address] [place] [address] Physician Nephrology 09/02/24 Cesar Fair MD [address] [id number] Surgery, Cardiac 11/08/24 Daisy Her, PT 85 [facility] [address] [place] [address] Project Controls SpecialistCeramic Painter Medicine and Rehabilitation 11/18/24
--- OUTSIDE RECORDS SUMMARY | 2024-12-03 15:26 | XMS_ITS | Encounter Summary ---
Author Organization [facility] Address [address] [place] [address] Care Team Providers Care Sheet Metal Welder Name Role Phone Lee Fabian MD Primary Care Provider [phone] Reason for Visit * Reason Onset Date Comments Faxed Order 11/04/2024 Encounter Details Date Type Department Care Team (Late st Contact Info) Description 11/04/2024 Telephone Internal Medicine - [facility] [address] [place] [phone] Lee Fabian MD [address] [place] [address] Faxed Order Social History Tobacco Use Types [...] - 11/04/2024 10:17 AM EST Orders from [facility] placed in Lee Fabian MD bin. Please complete and fax back to [phone]. Thank you. documented in this encounter Plan of Treatment Upcoming Encounters Date Type Department Care Team (Late st Contact Info) Description 12/06/2024 10:30 AM EDT Office Visit Internal Medicine - [address] [phone] Lee Fabian MD [address] [place] [address] documented as of this encounter Goals Goal [...] documented as of this encounter Care Teams Sheet Metal Welder Relationship Specialty Start Date End Date Lee Fabian MD [address] [place] [address] PCP - General Internal Medicine 08/03/24 documented as of this encounter
[2024-12-03 16:15] LABS: Alanine Aminotransferase 20 U/L (0-40); Albumin Level 3.3 g/dL (3.5-5.0); Alkaline Phosphatase 84 U/L (39-117); Aspartate Amino Transferase 20 U/L (5-37); Bilirubin Total 0.2 mg/dL (0.0-1.0); C Reactive Protein 1.56 mg/dL (< or = 0.50); Total Protein 6.6 g/dL (6.5-8.0)
[2024-12-03 16:16] LABS: Anion Gap 14 (12-20); Blood Urea Nitrogen 38 mg/dL (9-16); Calcium 8.2 mg/dL (8.4-10.2); Carbon Dioxide 24 mmol/L (22-29); Chloride 105 mmol/L (96-108); Estimated Glomerular Filt Rate 38; Potassium 4.3 mmol/L (3.3-5.1); Sodium 139 mmol/L (135-145)
[2024-12-03 17:00] LABS: Glucose Random 353 mg/dL (60-115)
== END 2024-12-03 13:34 | disposition home or self-care (01) ==
LOC: HO.HVNA 13:33
PROVIDERS: Visit Provider Student in an Organized Health Care Education/Training Program
DX: T81.49XA Infection following a procedure, other surgical site, initial encounter (principal); B95.62 Methicillin resistant Staphylococcus aureus infection as the cause of diseases classified elsewhere
CPT/HCPCS: 36415; 80053; 82550; 85025; 85652; 86140

== ENCOUNTER 2024-12-10 13:40 | Outpatient (REF) | payer MEDICARE, SELFPAY ==
[2024-12-10 13:47] LABS: MANUAL DIFF FLAG NO
[2024-12-10 13:59] LABS: Basophils Absolute Auto 0.1 X10*3/uL (0.0-0.2); Basophils Percent Auto 0.7 % (0-2); Eosinophils Absolute Auto 0.5 X10*3/uL (0.0-0.4); Eosinophils Percent Auto 7.5 % (0-4); Hematocrit 32.8 % (42.0-52.0); Hemoglobin 10.3 g/dl (14.0-18.0); Imm Gran Abs Auto 0.04 X10*3/uL (0.00-0.03); Imm Gran Pct Auto 0.6 % (0.0-0.4); Lymphocytes Absolute Auto 1.1 X10*3/uL (1.2-4.9); Lymphocytes Percent Auto 15.2 % (20-40); Mean Corpuscular HGB Conc 31.4 g/dl (31.0-36.0); Mean Corpuscular Hemoglobin 28.9 pg (27.0-33.0); Mean Corpuscular Volume 91.9 fL (80.0-98.0); Mean Platelet Volume 10.8 fL (9.4-12.4); Monocytes Absolute Auto 0.8 X10*3/uL (0.1-1.2); Monocytes Percent Auto 11.2 % (2-11); Neutrophils Absolute Auto 4.7 x10*3/uL (2.0-8.3); Neutrophils Percent Auto 64.8 % (45-73); Platelet Count 242 X10*3/uL (160-400); Red Blood Count 3.57 X10*6/uL (4.60-5.80); Red Cell Distribution Width 20.7 % (11.0-16.0); White Blood Count 7.2 X10*3/uL (4.8-10.8)
[2024-12-10 14:44] LABS: Erythrocyte Sedimentation Rate 34 MM/HR (0-15)
[2024-12-10 14:49] LABS: Alanine Aminotransferase 9 U/L (0-40); Albumin Level 3.5 g/dL (3.5-5.0); Alkaline Phosphatase 87 U/L (39-117); Anion Gap 14 (12-20); Aspartate Amino Transferase 14 U/L (5-37); Bilirubin Total 0.3 mg/dL (0.0-1.0); Blood Urea Nitrogen 25 mg/dL (9-16); C Reactive Protein 3.32 mg/dL (< or = 0.50); Calcium 8.4 mg/dL (8.4-10.2); Carbon Dioxide 29 mmol/L (22-29); Chloride 104 mmol/L (96-108); Estimated Glomerular Filt Rate 55; Glucose Random 164 mg/dL (60-115); Potassium 4.3 mmol/L (3.3-5.1); Sodium 143 mmol/L (135-145); Total Protein 6.8 g/dL (6.5-8.0)
--- OUTSIDE RECORDS SUMMARY | 2024-12-10 15:17 | XMS_ITS | Encounter Summary ---
Author Organization [employer] [facility] Address [address] [place] [address] Care Team Providers Care Plumbing Designer Name Role Phone Lee Fabian MD Primary Care Provider [phone] Encounter Details Date Type Department Care Team Description 04/04/2020 Art Preparator Report Medical Records [address] [place] [address] Jinny Rausch MD Social History Tobacco Use Types Packs/Day Years Used Date Smoking Tobacco: Former Cigarettes 1 15 Q uit: 10/30/2003 Smokeless Tobacco: Never Alcohol Use Standard Drinks/Week Comments Yes 0 (1 standard drink = 0.6 oz pur e alcohol) 4-5 per week Sex Assigned at Date Recorded Not on file documented as of this encounter Plan of Treatment Not on file documented as of this encounter Visit Diagnoses Not on filedocumented in this encounter Care Teams Plumbing Designer Relationship Specialty Start Date End Date Lee Fabian MD [address] [place], [place] [id number] PCP - General Internal Medicine 03/23/20 documented as of this encounter
--- OUTSIDE RECORDS SUMMARY | 2024-12-10 15:17 | XMS_ITS | Encounter Summary ---
Author Organization [employer] [facility] Address [address] [place] [address] Care Team Providers Care Dynamic Balancer Name Role Phone Jarrett Merlos MD Primary Care Provider Unavail able Lee Fabian MD Primary Care Provider [phone] Encounter Details Date Type Department Care Team Description 02/25/2017 Labview Programmer Report Medical Records [address] [place] [address] Abstract, Provider Social History Tobacco Use Types Packs/Day Years [...] on filedocumented in this encounter Care Teams Dynamic Balancer Relationship Specialty Start Date End Date Jarrett Merlos MD PCP - General 06/08/01 03/22/20 Lee Fabian MD [address] [place] [address] PCP - General Internal Medicine 03/23/20 documented as of this encounter
--- OUTSIDE RECORDS SUMMARY | 2024-12-10 15:17 | XMS_ITS | Encounter Summary ---
Author Organization [employer] [facility] Address [address] [place] [address] Care Team Providers Care Promotions Director Name Role Phone Jarrett Merlos MD Primary Care Provider Unavail able Lee Fabian MD Primary Care Provider [phone] Encounter Details Date Type Department Care Team Description 10/12/2019 Wildlife Veterinarian Report Medical Records [address] [place] [address] Erik Huston Social History Tobacco Use Types Packs/Day Years [...] on filedocumented in this encounter Care Teams Promotions Director Relationship Specialty Start Date End Date Jarrett Merlos MD PCP - General 06/08/01 03/22/20 Lee Fabian MD [address] [place] [address] PCP - General Internal Medicine 03/23/20 documented as of this encounter
--- OUTSIDE RECORDS SUMMARY | 2024-12-10 15:17 | XMS_ITS | Encounter Summary ---
Author Organization [employer] [facility] Address [address] [place] [address] Care Team Providers Care C Consultant Name Role Phone Jarrett Merlos MD Primary Care Provider Unavail able Lee Fabian MD Primary Care Provider [phone] Encounter Details Date Type Department Care Team Description 09/08/2018 Orders Only Medical Records [address] [place] [address] Abstract, Provider Social History Tobacco Use Types [...] on file documented as of this encounter Procedures Procedure Name Priority Date/Time Associated Diagnosis Comments OUTSIDE LAB Routine 08/26/2018 documented in this encounter Results * OUTSIDE LAB (08/26/2018) Provider Abstract LAB documented in this encounter Visit Diagnoses Not on filedocumented in this encounter Care Teams C Consultant Relationship Specialty Start Date End Date Jarrett Merlos MD PCP - General 06/08/01 03/22/20 Lee Fabian MD [address] [place] [address] PCP - General Internal Medicine 03/23/20 documented as of this encounter
--- OUTSIDE RECORDS SUMMARY | 2024-12-10 15:17 | XMS_ITS | Encounter Summary ---
Author Organization [employer] [facility] Address [address] [place] [address] Care Team Providers Care Parking Control Officer Name Role Phone Jarrett Merlos MD Primary Care Provider Unavail able Lee Fabian MD Primary Care Provider [phone] Encounter Details Date Type Department Care Team Description 09/07/2019 Negative Restorer Report Medical Records [address] [place] [address] Orthopedic, Surgeons Social History Tobacco Use Types Packs/Day Years [...] on filedocumented in this encounter Care Teams Parking Control Officer Relationship Specialty Start Date End Date Jarrett Merlos MD PCP - General 06/08/01 03/22/20 Lee Fabian MD [address] [place] [address] PCP - General Internal Medicine 03/23/20 documented as of this encounter
--- OUTSIDE RECORDS SUMMARY | 2024-12-10 15:17 | XMS_ITS | Encounter Summary ---
Author Organization [facility] [facility] Address [address] [place] [address] Care Team Providers Care Clinical Systems Analyst Name Role Phone Jarrett Merlos MD Primary Care Provider Unavail able Lee Fabian MD Primary Care Provider [phone] Encounter Details Date Type Department Care Team Description 02/05/2017 Claims Technician Report Medical Records [address] [place] [address] Lucrecia Duckworth NP Social History Tobacco Use Types Packs/Day Years [...] on filedocumented in this encounter Care Teams Clinical Systems Analyst Relationship Specialty Start Date End Date Jarrett Merlos MD PCP - General 06/08/01 03/22/20 Lee Fabian MD [address] [place] [address] PCP - General Internal Medicine 03/23/20 documented as of this encounter
--- OUTSIDE RECORDS SUMMARY | 2024-12-10 15:17 | XMS_ITS | Encounter Summary ---
Author Organization [employer] [facility] Address [address] [place] [address] Care Team Providers Care Penetration Tester Name Role Phone Jarrett Merlos MD Primary Care Provider Unavail able Lee Fabian MD Primary Care Provider Encounter Details Date Type Department Care Team Description 07/07/2018 Hospital Social Worker Report Medical Records [address] [place] [address] Vitaliy Fields MD Social History Tobacco Use Types Packs/Day [...] on filedocumented in this encounter Care Teams Penetration Tester Relationship Specialty Start Date End Date Jarrett Merlos MD PCP - General 06/08/01 03/22/20 Lee Fabian MD [address] [place] [address] PCP - General Internal Medicine 03/23/20 documented as of this encounter
--- OUTSIDE RECORDS SUMMARY | 2024-12-10 15:17 | XMS_ITS | Encounter Summary ---
Author Organization [employer] [facility] Address [address] [place] [address] Care Team Providers Care Continuous Improvement Engineer Name Role Phone Jarrett Merlos MD Primary Care Provider Unavail able Lee Fabian MD Primary Care Provider [phone] Encounter Details Date Type Department Care Team Description 11/17/2018 Orders Only Medical Records [address] [place] [address] Abstract, Provider Social History Tobacco Use Types [...] Date/Time Associated Diagnosis Comments OUTSIDE LAB Routine 10/23/2018 documented in this encounter Results * OUTSIDE LAB (10/23/2018) Provider Abstract LAB documented in this encounter Visit Diagnoses Not on filedocumented in this encounter Care Teams Continuous Improvement Engineer Relationship Specialty Start Date End Date Jarrett Merlos MD PCP - General 06/08/01 03/22/20 Lee Fabian MD [address] [place] [address] PCP - General Internal Medicine 03/23/20 documented as of this encounter
--- OUTSIDE RECORDS SUMMARY | 2024-12-10 15:17 | XMS_ITS | Encounter Summary ---
Author Organization [employer] [facility] Address [address] [place] [address] Care Team Providers Care Advanced Manager Name Role Phone Jarrett Merlos MD Primary Care Provider Unavail able Lee Fabian MD Primary Care Provider [phone] Encounter Details Date Type Department Care Team Description 10/07/2018 Mortgage Analyst Report Medical Records [address] [place] [address] Julio Aldridge Social History Tobacco Use Types Packs/Day Years [...] on filedocumented in this encounter Care Teams Advanced Manager Relationship Specialty Start Date End Date Jarrett Merlos MD PCP - General 06/08/01 03/22/20 Lee Fabian MD [address] [place] [address] PCP - General Internal Medicine 03/23/20 documented as of this encounter
--- OUTSIDE RECORDS SUMMARY | 2024-12-10 15:17 | XMS_ITS | Encounter Summary ---
Author Organization [employer] [facility] Address [address] [place] [address] Care Team Providers Care Postal Service Window Clerk Name Role Phone Jarrett Merlos MD Primary Care Provider Unavail able Lee Fabian MD Primary Care Provider [phone] Encounter Details Date Type Department Care Team Description 02/07/2011 [facility] Medical Records [address] [place] [address] Charles Arthur MD Social History Tobacco Use Types Packs/Day Years Used Date Smoking Tobacco: Former Cigarettes 1 15 Q uit: 10/30/2003 Smokeless Tobacco: Never Alcohol Use Standard Drinks/Week Comments Yes 12 (1 standard drink = 0.6 oz pu re alcohol) 12 pack Sex Assigned at Date Recorded Not on file documented as of this encounter Plan of Treatment Not on file documented as of this encounter Visit Diagnoses Not on filedocumented in this encounter Care Teams Postal Service Window Clerk Relationship Specialty Start Date End Date Jarrett Merlos MD PCP - General 06/08/01 03/22/20 Lee Fabian MD [address] [place] [address] PCP - General Internal Medicine 03/23/20 documented as of this encounter
--- OUTSIDE RECORDS SUMMARY | 2024-12-10 15:17 | XMS_ITS | Encounter Summary ---
Author Organization [employer] [facility] Address [address] [place] [address] Care Team Providers Care Living Advisor Name Role Phone Jarrett Merlos MD Primary Care Provider Unavail able Lee Fabian MD Primary Care Provider [phone] Encounter Details Date Type Department Care Team Description 08/28/2018 [facility] Medical Records [address] [place] [address] Mahaffey-Lyndsay Armando PA-C Social History Tobacco Use Types Packs/Day Years [...] on filedocumented in this encounter Care Teams Living Advisor Relationship Specialty Start Date End Date Jarrett Merlos MD PCP - General 06/08/01 03/22/20 Lee Fabian MD [address] [place] [address] PCP - General Internal Medicine 03/23/20 documented as of this encounter
--- OUTSIDE RECORDS SUMMARY | 2024-12-10 15:17 | XMS_ITS | Encounter Summary ---
Author Organization [employer] [facility] Address [address] [place] [address] Care Team Providers Care Fire Pilot Name Role Phone Jarrett Merlos MD Primary Care Provider Unavail able Lee Fabian MD Primary Care Provider [phone] Encounter Details Date Type Department Care Team Description 02/09/2011 [facility] Medical Records [address] [place] [address] Carlos Skaggs Social History Tobacco Use Types Packs/Day Years [...] on filedocumented in this encounter Care Teams Fire Pilot Relationship Specialty Start Date End Date Jarrett Merlos MD PCP - General 06/08/01 03/22/20 Lee Fabian MD [address] [place] [address] PCP - General Internal Medicine 03/23/20 documented as of this encounter
--- OUTSIDE RECORDS SUMMARY | 2024-12-10 15:17 | XMS_ITS | Encounter Summary ---
Author Organization [facility] Address [address] [place] [address] Care Team Providers Care Tractor Mechanic Name Role Phone Jarrett Merlos MD Primary Care Provider Unavail able Lee Fabian MD Primary Care Provider [phone] Encounter Details Date Type Department Care Team Description 02/28/2017 Sponge Packer Report Medical Records [address] [place] [address] Nani Holder Social History Tobacco Use Types Packs/Day Years [...] on filedocumented in this encounter Care Teams Tractor Mechanic Relationship Specialty Start Date End Date Jarrett Merlos MD PCP - General 06/08/01 03/22/20 Lee Fabian MD [address] [place] [id number] PCP - General Internal Medicine 03/23/20 documented as of this encounter
--- OUTSIDE RECORDS SUMMARY | 2024-12-10 15:17 | XMS_ITS | Encounter Summary ---
Author Organization [facility] Address [address] [place] [address] Care Team Providers Care Bacteriologist Industrial Name Role Phone Jarrett Merlos MD Primary Care Provider Unavail able Lee Fabian MD Primary Care Provider [phone] Encounter Details Date Type Department Care Team Description 02/15/2017 [facility] Medical Records [address] [place] [address] Omega Rios Social History Tobacco Use Types Packs/Day Years [...] on filedocumented in this encounter Care Teams Bacteriologist Industrial Relationship Specialty Start Date End Date Jarrett Merlos MD PCP - General 06/08/01 03/22/20 Lee Fabian MD [address] [place] [phone] PCP - General Internal Medicine 03/23/20 documented as of this encounter
--- OUTSIDE RECORDS SUMMARY | 2024-12-10 15:18 | XMS_ITS | Encounter Summary ---
Author Organization [facility] Address [address] [place] [address] Care Team Providers Care Executive Manager Name Role Phone Jarrett Merlos MD Primary Care Provider Unavail able Lee Fabian MD Primary Care Provider [phone] Encounter Details Date Type Department Care Team Description 11/08/2015 [employer] Faculty Member Report Medical Records [address] [place] [address] Social History Tobacco Use Types Packs/Day Years [...] on filedocumented in this encounter Care Teams Executive Manager Relationship Specialty Start Date End Date Jarrett Merlos MD PCP - General 06/08/01 03/22/20 Lee Fabian MD [address] [place] [id number] PCP - General Internal Medicine 03/23/20 documented as of this encounter
--- OUTSIDE RECORDS SUMMARY | 2024-12-10 15:18 | XMS_ITS | Encounter Summary ---
Author Organization [facility] Address [address] [place] [address] Care Team Providers Care Distribution Tech Name Role Phone Lee Fabian MD Primary Care Provider Reason for Visit * Reason Onset Date Comments Fitting for DME 12/08/2024 Encounter Details Date Type Department Care Team (Late st Contact Info) Description 12/08/2024 Telephone Internal Medicine - [facility] [address] [place] [address] Todd Stacy MA Fitting for DME Social History Tobacco Use Types Packs/Day Years [...] Author No 09/19/2024 11:54 PM EST Erik Abbott, JOSUE * Are you blind or do you [...] Entry Date Author No 09/19/2024 11:54 PM rEik Rendon RN documented in this encounter Progress Notes * Todd Stacy MA - 12/08/2024 11:09 AM EDT Durable medical equipment prescription request has been faxed to the DME Company : [employer] / With cover sheet, demographics and ethan notes Confirmation was received * Todd Stacy MA - 12/08/2024 10:05 AM EDT DME request recieved thru office appt with Dr Fabian or fax machine to be processed / diabetic shoes documented in this encounter Plan of Treatment Not on file documented as of this encounter Goals Goal Patient Goal Type Associated Problems Recent Progress Patient-Stated? Author Decrease Wound Volume by X% by date (in notes) Care Plan Impaired Tissue On track( 11:43 AM EST) No Susan Peralta RN Patient and Caregiver Understand Wound Care Education Care Plan Impaired Tissue On track(01/29/2 025 11:44 AM EST) Susan Allison RN [...] on impact of smoking on wound Susan Alliosn RN Decrease Wound Volume by X% by date (in notes) Care Plan Education needed on impact of smoking on wound Susan Allison RN Patient and Caregiver Understand Wound Care Education Care Plan Education needed related to ulceration/compr omised skin integrity. Susan Allison RN documented as of this encounter Visit Diagnoses Diagnosis Hx of BKA, left ([facility])- Primary Type 2 diabetes mellitus with foot ulcer, unspecified whether senior care insulin use ([facility]) Diabetic ulcer of left heel associated with type 2 diabetes mellitus, with fat layer exposed ([facility]) Diabetic infection of left foot ([facility]) Charcot's joint, right ankle and foot Peripheral vascular disease, unspecified ([facility]) Peripheral vascular disease, unspecified documented in this encounter Orders General Supply Count Last Ordered Date First Or dered Date DIABETIC CUSTOM MOLDED SHOE WITH INSERTS 1 12/08/2024 documented in this encounter Additional Health Concerns Active Problems Noted Date Diagnosed Date Impaired Tissue 08/10/2024 Education needed on impact of smoking on wound 1 10/10/2023 Education needed related to ulceration/compromised skin integrity. 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
--- OUTSIDE RECORDS SUMMARY | 2024-12-10 15:18 | XMS_ITS | Encounter Summary ---
Author Organization [facility] Address [address] [place] [address] Care Team Providers Care Manager Etl Name Role Phone Jarrett Merlos MD Primary Care Provider Unavail able Lee Fabian MD Primary Care Provider [phone] Encounter Details Date Type Department Care Team Description 04/03/2017 Assurance Manager Insurance Report Medical Records [address] [place] [address] Misty Munoz Social History Tobacco Use Types Packs/Day Years [...] on filedocumented in this encounter Care Teams Manager Etl Relationship Specialty Start Date End Date Jarrett Merlos MD PCP - General 06/08/01 03/22/20 Lee Fabian MD [address] [place] [id number] PCP - General Internal Medicine 03/23/20 documented as of this encounter
--- OUTSIDE RECORDS SUMMARY | 2024-12-10 15:18 | XMS_ITS | Encounter Summary ---
Author Organization [facility] Address [address] [place] [address] Care Team Providers Care Journeyman Pipe Fitter Name Role Phone Jarrett Merlos MD Primary Care Provider Unavail able Lee Fabian MD Primary Care Provider [phone] Encounter Details Date Type Department Care Team Description 12/09/2019 Blue Print Control Clerk Report Medical Records [address] [place] [address] Abstract, Provider Social History Tobacco Use Types [...] on filedocumented in this encounter Care Teams Journeyman Pipe Fitter Relationship Specialty Start Date End Date Jarrett Merlos MD PCP - General 06/08/01 03/22/20 Lee Fabian MD [address] [place] [phone] PCP - General Internal Medicine 03/23/20 documented as of this encounter
--- OUTSIDE RECORDS SUMMARY | 2024-12-10 15:18 | XMS_ITS | Encounter Summary ---
Author Organization [facility] Address [address] [place] [address] Care Team Providers Care International Coordinator Name Role Phone Jarrett Merlos MD Primary Care Provider Unavail able Lee Fabian MD Primary Care Provider [phone] Encounter Details Date Type Department Care Team Description 06/09/2015 Shipping Clerk Report Medical Records [address] [place] [address] Nishant Jane MD [address] [place] [address] Social History Tobacco Use Types Packs/Day Years [...] on filedocumented in this encounter Care Teams International Coordinator Relationship Specialty Start Date End Date Jarrett Merlos MD PCP - General 06/08/01 03/22/20 Lee Fabian MD [address] [place] [address] PCP - General Internal Medicine 03/23/20 documented as of this encounter
--- OUTSIDE RECORDS SUMMARY | 2024-12-10 15:18 | XMS_ITS | Encounter Summary ---
Author Organization [facility] Address [address] [place] [address] Care Team Providers Care Pet Ambassador Name Role Phone Lee Fabian MD Primary Care Provider [phone] Encounter Details Date Type Department Care Team Description 07/05/2021 Refill Adult Medicine [address] [address] Lee Fabian MD [address] [place] [address] Social History Tobacco Use Types Packs/Day Years Used Date Smoking Tobacco: Former Cigarettes 1 15 Q uit: 10/30/2003 Smokeless Tobacco: Never Alcohol Use Standard Drinks/Week Comments Yes 0 (1 standard drink = 0.6 oz pur e alcohol) 4-5 per week Sex Assigned at Date Recorded Not on file COVID-19 Exposure Response Date Recorded In the last month, have you been in contact with someone who was confirmed or suspected to have Coronavirus / COVID-19? Unable to assess 06/18/2021 4:15 PM EDT documented as of this encounter Plan of Treatment Not on file documented as of this encounter Visit Diagnoses Not on filedocumented in this encounter Care Teams Pet Ambassador Relationship Specialty Start Date End Date Lee Fabian MD [address] [place] [address] PCP - General Internal Medicine 03/23/20 documented as of this encounter
--- OUTSIDE RECORDS SUMMARY | 2024-12-10 15:18 | XMS_ITS | Encounter Summary ---
Author Organization [facility] Address [address] [place] [address] Care Team Providers Care Embedded Systems Software Developer Name Role Phone Lee Fabian MD Primary Care Provider [phone] Encounter Details Date Type Department Care Team Description 12/04/2020 Old Medical Records Medical Records [address] [place] [address] Abstract, Provider Social History Tobacco Use Types [...] on filedocumented in this encounter Care Teams Embedded Systems Software Developer Relationship Specialty Start Date End Date Lee Fabian MD [address] [place] [id number] PCP - General Internal Medicine 03/23/20 documented as of this encounter
--- OUTSIDE RECORDS SUMMARY | 2024-12-10 15:18 | XMS_ITS | Encounter Summary ---
Author Organization [facility] Address [address] [place] [address] Care Team Providers Care Farm Contractor Buyer Name Role Phone Jarrett Merlos MD Primary Care Provider Unavail able Lee Fabian MD Primary Care Provider [phone] Encounter Details Date Type Department Care Team Description 12/28/2018 Release of Information Medical Records [address] [place] [address] Abstract, Provider Social History Tobacco Use Types [...] on filedocumented in this encounter Care Teams Farm Contractor Buyer Relationship Specialty Start Date End Date Jarrett Merlos MD PCP - General 06/08/01 03/22/20 Lee Fabian MD [address] [place] [phone] PCP - General Internal Medicine 03/23/20 documented as of this encounter
--- OUTSIDE RECORDS SUMMARY | 2024-12-10 15:18 | XMS_ITS | Encounter Summary ---
Author Organization [facility] Address [address] [place] [address] Care Team Providers Care Research Affiliate Name Role Phone Jarrett Merlos MD Primary Care Provider Unavail Lee Tidwell MD Primary Care Provider [phone] Reason for Visit * Reason Onset Date Comments VNA Call 08/20/2017 [facility] Encounter Details Date Type Department Care Team Description 08/20/2017 Telephone Adult Medicine [address] [place] [address] Jarrett Merlos MD VNA Call ([facility]) Social History Tobacco Use Types Packs/Day Years Used Date Smoking Tobacco: Former Cigarettes 1 15 Q uit: 10/30/2003 Smokeless Tobacco: Never Alcohol Use Standard Drinks/Week Comments Yes 0 (1 standard drink = 0.6 oz pur e alcohol) 4-5 per week Sex Assigned at Date Recorded Not on file documented as of this encounter Miscellaneous Notes * Telephone Encounter - Renea Campbell RN - 08/20/2017 3:34 PM EST Spoke with Mary, [facility] admitting pt to services today. Just wanted to make Dr. Merlos aware that pt is very non-compliant with taking medications, including insulin. Seeing Cardiology on 08/[facility] Merlos on 08/27. Taking Keflex 500 mg for 3 more days. Will FYI pcp. * Telephone Encounter - Anna Erwin - 08/20/2017 3:19 PM EST VNA CALL Which VNA office is calling? [facility] Full name of caller: Mayr The caller is A nurse Is the caller at the patients home?: NO Reason for call: Admitted patient into home care today. Patient is non compliant about blood sugar,food, sodium and is taking insulin. Does caller need an urgent call back? YES Was CONTACT Telephone # obtained above?: YES Fax #: NA documented in this encounter Plan of Treatment Not on file documented as of this encounter Visit Diagnoses Not on filedocumented in this encounter Care Teams Research Affiliate Relationship Specialty Start Date End Date Jarrett Merlos MD PCP - General 06/08/01 03/22/20 Lee Fabian MD [address] [place] [phone] PCP - General Internal Medicine 03/23/20 documented as of this encounter
--- OUTSIDE RECORDS SUMMARY | 2024-12-10 15:18 | XMS_ITS | Encounter Summary ---
Author Organization [employer] [facility] Address [address] [place] [address] Care Team Providers Care Reimbursement Consultant Name Role Phone Jarrett Merlos MD Primary Care Provider Unavail able Lee Fabian MD Primary Care Provider [phone] Encounter Details Date Type Department Care Team Description 12/22/2018 It Support Engineer Report Medical Records [address] [place] [address] Héctor Blanchard Social History Tobacco Use Types Packs/Day Years [...] on filedocumented in this encounter Care Teams Reimbursement Consultant Relationship Specialty Start Date End Date Jarrett Merlos MD PCP - General 06/08/01 03/22/20 Lee Fabian MD [address] [place] [id number] PCP - General Internal Medicine 03/23/20 documented as of this encounter
--- OUTSIDE RECORDS SUMMARY | 2024-12-10 15:18 | XMS_ITS | Encounter Summary ---
Author Organization [facility] Address [address] [place] [address] Care Team Providers Care Culinary Intern Name Role Phone Jarrett Merlos MD Primary Care Provider Unavail able Lee Fabian MD Primary Care Provider [phone] Encounter Details Date Type Department Care Team Description 10/20/2015 Criminal Justice Professor Report Medical Records [address] [place] [address] Julio Aldridge Social History Tobacco Use Types [...] on filedocumented in this encounter Care Teams Culinary Intern Relationship Specialty Start Date End Date Jarrett Merlos MD PCP - General 06/08/01 03/22/20 Lee Fabian MD [address] [place] [address] PCP - General Internal Medicine 03/23/20 documented as of this encounter
--- OUTSIDE RECORDS SUMMARY | 2024-12-10 15:18 | XMS_ITS | Encounter Summary ---
Author Organization [facility] Address [address] [place] [address] Care Team Providers Care Receiver Dispatcher Name Role Phone Jarrett Merlos MD Primary Care Provider Unavail able Lee Fabian MD Primary Care Provider [phone] Encounter Details Date Type Department Care Team Description 04/22/2014 [facility] Medical Records [address] [place] [address] Ariane Kaminski Social History Tobacco Use Types Packs/Day Years [...] on filedocumented in this encounter Care Teams Receiver Dispatcher Relationship Specialty Start Date End Date Jarrett Merlos MD PCP - General 06/08/01 03/22/20 Lee Fabian MD [address] [place] [phone] PCP - General Internal Medicine 03/23/20 documented as of this encounter
--- OUTSIDE RECORDS SUMMARY | 2024-12-10 15:18 | XMS_ITS | Data Portability ---
Author Organization [facility], [facility] Address [address] [place] [address] Assessment No assessment recorded. Plan of Treatment Reminders Order Date Submit Date Provider Last Modified By Organization Details Last Modified Time Details Appointments None record ed. Lab None record ed. Referral None record ed. Procedures None record ed. Surgeries None record ed. Imaging None record ed. Medication Orders None record ed. Patient TargetsNo targets recorded. Patient InstructionsNo instructions recorded. Reason for Referral None Reported. Results Created Date Observation Date Name Description Value Unit Range Abnormal Flag Note LastModifiedBy Organization Detail LastModifiedTime 05/29/20 24 12/14/2018 imagi ng/di agnos tic resul t No observ ation record ed. [email or web address] Not Available 05/01 04:34:42 Result Notes None recorded. Procedures Surgical History Date Name Laterality Status Provider Name and Address Organization Details Recorded Time 4 Small Joint Kenalog Injection, Bilateral completed Rachel Montalvo PA-C [address], [place], [address], [facility] 07/01/2024 11:52:22 4 Small Joint Kenalog Injection, L/R completed Rachel Montalvo PA-C [address], [place], [address], [facility] 12/19/2023 15:28:48 4 Tendon Sheath Kenalog Injection, Bilateral completed Rachel Montalvo PA-C [address], [place], [address], [facility] 12/19/2023 15:28:37 Imaging Results Imaging Date Name Status LastModified by Organiz ation Details LastModified Time 12/14/2018 imaging/diag nostic result completed [email or web address] Information not available 05/29/2024 04:34:42 Procedure Notes None recorded. Medical Equipment None Reported. Allergies Allergen ID Allergen Name Allergen Category Reaction Reaction Severity Criticality Documentation Date Start Date Code Code System Note Provider Name and Address Organization Details Recorded Time 55157 lisinopri l medicatio n Not available Not available Not available 12/01/20232017 64685 RxNorm Not Available [facility] 13:16:40 Medications Name Sig Start Date Stop Date Status Note LastModified by Organization Details LastModified Time amoxicillin 500 mg capsule TAKE 4 CAPSULES BY MOUTH AN HOUR PRIOR TO DENTAL APPOINTMENT AND THEN 1 CAPSULE BY MOUTH THREE TIMES DAILY FOR 1 WEEK active Not Available Not Available N ot Available bupropion HCl SR 150 mg tablet,12 hr sustained-re lease TAKE 1 TABLET BY MOUTH TWICE DAILY active Not Available Not Available No t Available bumetanide 2 mg tablet TAKE 1 TABLET BY MOUTH DAILY active Not Available Not Available Not Available trazodone 50 mg tablet TAKE 2 TABLETS BY MOUTH EVERY NIGHT NEEDED active Not Available Not Available No t Available donepezil 10 mg tablet TAKE 1 TABLET BY MOUTH EVERY DAY active Not Available Not Available No t Available amlodipine 10 mg tablet TAKE 1 TABLET BY MOUTH DAILY active Not Available Not Available Not Available glipizide ER 2.5 mg tablet, extended release 24 hr TAKE 1 TABLET BY MOUTH DAILY active Not Available Not Available Not Available cephalexin 500 mg capsule TAKE 1 CAPSULE BY MOUTH FOUR TIMES DAILY FOR 7 DAYS active Not Available Not Available N ot Available pantoprazole 40 mg tablet,delay ed release TAKE 1 TABLET BY MOUTH DAILY active Not Available Not Available Not Available pseudoephedr ine-guaifene sin ER 80-700 mg tablet,exten ded release Percocet 5-325MG Tablet 1 every 4 - 6 hours as needed 2007 active Statu s: 'Curr ent'; Not Available Not Available Not Available metformin 1,000 mg tablet TAKE 1 TABLET BY MOUTH TWICE DAILY WITH MEALS active Not Available Not Available No t Available metoprolol tartrate 50 mg tablet TAKE 1 TABLET BY MOUTH TWICE DAILY active Not Available Not Available No t Available bisacodyl 5 mg tablet,delay ed release TAKE 2 TABLETS BY MOUTH RIGHT BEFORE YOUR FIRST DOSE OF LIQUID PREP active Not Available Not Available No t Available pravastatin 20 mg tablet TAKE 1 TABLET BY MOUTH DAILY active Not Available Not Available Not Available metoprolol succinate ER 25 mg tablet,exten ded release 24 hr TAKE 1 TABLET BY MOUTH DAILY active Not Available Not Available Not Available ibuprofen 600 mg tablet TAKE 1 TABLET 1 HOUR BEFORE DENTAL APPOINTMENT THEN 1 TABLET EVERY 6 HOURS NEEDED FOR PAIN active Not Available Not Available No t Available doxycycline hyclate 100 mg tablet TAKE 1 TABLET BY MOUTH EVERY 12 HOURS FOR 7 DAYS active Not Available Not Available N ot Available amoxicillin 875 mg-potassium clavulanate 125 mg tablet TAKE 1 TABLET BY MOUTH TWICE DAILY FOR 4 DAYS active Not Available Not Available No t Available amoxicillin 500 mg-potassium clavulanate 125 mg tablet TAKE 1 TABLET BY MOUTH THREE TIMES DAILY active Not Available Not Available Not Available nicotine 7 mg/[address] transdermal patch PLACE 1 PATCH ONTO THE SKIN EVERY 24 HOURS active Not Available Not Available No t Available pregabalin 150 mg capsule TAKE 1 CAPSULE BY MOUTH TWICE DAILY active Not Available Not Available No t Available chlorhexidin e gluconate 0.12 % mouthwash active Not Available Not Available No t Available bumetanide Bumetanide 1MG Tablet 2022 active Statu s: 'Curr ent'; Not Available Not Available Not Available oxycodone HCl-oxycodon e-ASA DO NOT DRIVE WHILE TAKING MEDICATION 2017 active Statu s: 'Curr ent'; Not Available Not Available Not Available GaviLyte-G 236 gram-22.74 gram-6.74 gram-5.86 gram oral solution TAKE DIRECTED active Not Available Not Available No t Available Jardiance 10 mg tablet TAKE 1 TABLET BY MOUTH EVERY MORNING active Not Available Not Available No t Available Jardiance 25 mg tablet TAKE 1 TABLET BY MOUTH DAILY active Not Available Not Available Not Available FreeStyle Wallace 3 Sensor device INJECT 1 DEVICE INTO THE SKIN EVERY 14 DAYS active Not Available Not Available No t Available glipizide 2.5 mg tablet TAKE 1 TABLET BY MOUTH TWICE DAILY active Not Available Not Available No t Available Vitals Date Recorded Body height Body mass index (BMI) Body weight Provider Name and Address Organization Details Last Updated DateTime 12/19/2023 190.5 cm 30.6 kg/m2 971665.13 g [facility] [place] [facility] 12/19/2023 13:10:48 Date Recorded Body height Body mass index (BMI) Body weight Provider Name and Address Organization Details Last Updated DateTime 06/25/2024 190.5 cm 30.6 kg/m2 035623.13 g EUNICE DUNHAM [place] - [place] [facility] 06/25/2024 11:08:00 Social History None recorded. Functional Status None recorded. Mental Status None recorded. Family History Nothing Reported. Medical History No medical history recorded. Past Encounters Encounter ID Performer Location Encounter Start Date Encounter Closed Date Diagnosis/Indication Diagnosis SNOMED-CT Code Diagnosis ICD10 Code Diagnosis Note [id number] Rachel Montalvo PA-C [address] [place] [address] 12/19/2023 12:52:10 01/13/2024 11:33:37 Trigger finger of right hand [id number] 6278468 M65.30 M65.331 Trigger th umb of left hand 5373460134 34482 M65.312 Arthritis of finger of right hand 4648485694 2203463 M13.213 [id number] Rachel Montalvo PA-C [place] [address] [facility] [place] [address] 06/25/2024 10:24:51 07/19/2024 16:07:16 Osteoarthritis of joint of bilateral hands [id number] 51275 M19.041 M19.042 Health Concerns Section Related Observation LastModified by Organization Detai ls LastModified Time None Recorded Concern Status LastModified by Organization Details LastModified Time None Recorded Advance Directives Directive None Recorded Payers Encounter Date Sequence Insurance Name Policy Number Policy Palm Covered Member ID Palm Member ID Guarantor Name 12/19/2023 1 [employer] [id number] Luca Crowe [id number] Luca Crowe 06/25/2024 1 [employer] [id number] Luca Crowe [id number] Luca Crowe Notes Date Note Type Note Provider Name and Address Organization Details Recorded Time 12/19/2023 text/html I am seeing this patient under the supervision of Dr. Mcconnell who was available but who did not see the patient.Clinical update: Patient is here today for recheck. Patient states that the injection given last visit helped his symptoms significantly. He would like another cortisone injection at the MCPJ of the right index finger. He also mentions is left thumb and right middle fingers have been locking and are painful. Denies interval trauma. Denies numbness or tingling. Physical exam, imaging, impression, and plan updated for today's visit below.HPI: Patient is a 62-year-old male presenting to the office today for evaluation of right index finger pain that began about a month ago without any particular injury or inciting event. 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 About a month ago he noticed pain and swelling in the right index finger which has mildly improved since original onset. Denies a history of gout or rheumatoid arthritis. Denies clicking or locking of the finger. Denies numbness or tingling. He is here today for orthopedic consultation.Past family, medical, social history and review of systems has been reviewed, updated and is located in the patient's chart.Examination: The patient is well appearing, alert and oriented x3 and in no acute distress. Inspection of the bilateral hands reveals minimal edema about the right index finger MCPJ. Otherwise no edema, atrophy, erythema, ecchymoses or deformity. Skin is intact, no open wounds. Full digital range of motion. Intact extrinsic digit flexors and extensors. Neurovascularly intact distally. Good capillary refill. Patient is tender about the right index finger MCPJ as well as the left thumb and right middle finger A1 santiago regions. Otherwise nontender about the finger. Peripheral, vascular, lymphatic examination, skin, neurological, coordination, reflexes, sensation are within normal limits.X-rays ordered, obtained and reviewed independently today at [facility]: None indicated or performed today.Previous films: 3 view x-rays of the right index finger reveal no acute fractures or dislocations. Mild generalized degenerative changes noted.Impression:1. Right middle trigger finger2. Left trigger thumb3. Right index finger mild MCPJ and PIPJ OAPlan: I discussed my findings and the situation with the patient today. We discussed potential treatment options at this time. Patient would like a cortisone injection in the right index finger MCP joint, as well as injections for the left trigger thumb and right middle trigger finger today. We discussed the role of cortisone as well as its risks and benefits. We discussed that since he is a diabetic, he should monitor his blood sugars after the injections as they can increase his blood sugars. Patient understands and agrees with this. Patient would like to proceed with the injections. Under sterile technique the patient's right index finger MCPJ, right middle finger A1 santiago/flexor tendon sheath and left thumb A1 santiago/flexor tendon sheath were each injected with 1cc Kenalog. Patient tolerated the procedure well. Post procedure protocol was discussed with the patient. Patient will follow-up on an as needed basis. If symptoms persist or things worsen or change he will have office. Patient agrees with this plan. All questions were answered.Speech recognition turbinated bone grinder software was used to create portions of this document. An attempt at proofreading has been made to minimize errors. Please call for corrections. Rachel Montalvo PA-C [address] [place] [address] [address], [place], [address], [facility] [place] [facility] 12/19/2023 15:31:01 06/25/2024 text/html I am seeing this patient under the supervision of Dr. Frank who was available but who did not see the patient.Clinical update: Patient is here today for recheck. Patient states that the injection given last visit helped his symptoms significantly. He would like another cortisone injection at the MCPJ of the right index finger. He also mentions pain at the base of his left thumb. Denies interval trauma. Denies numbness or tingling. Physical exam, imaging, impression, and plan updated for today's visit below.HPI: Patient is a 62-year-old male presenting to the office today for evaluation of right index finger pain that began about a month ago without any particular injury or inciting event. 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 About a month ago he noticed pain and swelling in the right index finger which has mildly improved since original onset. Denies a history of gout or rheumatoid arthritis. Denies clicking or locking of the finger. Denies numbness or tingling. He is here today for orthopedic consultation.Past family, medical, social history and review of systems has been reviewed, updated and is located in the patient's chart.Examination: The patient is well appearing, alert and oriented x3 and in no acute distress. Inspection of the bilateral hands reveals minimal edema about the right index finger MCPJ. Otherwise no edema, atrophy, erythema, ecchymoses or deformity. Skin is intact, no open wounds. Full digital range of motion. Intact extrinsic digit flexors and extensors. Neurovascularly intact distally. Good capillary refill. Patient is tender about the right index finger MCPJ as well as the left thumb 1st CMC joint region. Otherwise nontender about the finger. Peripheral, vascular, lymphatic examination, skin, neurological, coordination, reflexes, sensation are within normal limits.X-rays ordered, obtained and reviewed independently today at [facility]: None indicated or performed today.Previous films: 6 view x-rays of the bilateral hands reveal generalized degenerative changes including bilateral first CMC OA. No acute fractures or dislocations.Impressi on:1. Right middle trigger finger, resolved status post cortisone injection . Left trigger thumb, resolved status post cortisone injection . 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 Left 1st CMC joint OAPlan: I discussed my findings and the situation with the patient today. We discussed potential treatment options at this time. Patient would like a cortisone injection in the right index finger MCP joint, as well as an injection for the left 1st CMC joint. We discussed the role of cortisone as well as its risks and benefits. We discussed that since he is a diabetic, he should monitor his blood sugars after the injections as they can increase his blood sugars. Patient understands and agrees with this. Patient would like to proceed with the injections. Under sterile technique the patient's right index finger MCPJ was injected with 1cc Kenalog and his left 1st CMC joint was injected with 1cc lidocaine and 1cc Kenalog. Patient tolerated the procedure well. Post procedure protocol was discussed with the patient. Patient will follow-up on an as needed basis. If symptoms persist or things worsen or change he will have office. Patient agrees with this plan. All questions were answered.Speech recognition turbinated bone grinder software was used to create portions of this document. An attempt at proofreading has been made to minimize errors. Please call for corrections. Rachel Montalvo PA-C [address], [place], [address], [facility] [place] [facility] 07/01/2024 11:53:04
--- OUTSIDE RECORDS SUMMARY | 2024-12-10 15:18 | XMS_ITS | Encounter Summary ---
Author Organization [facility] Address [address] [place] [address] Care Team Providers Care Carport Erector Name Role Phone Jarrett Merlos MD Primary Care Provider Unavail able Lee Fabian MD Primary Care Provider [phone] Encounter Details Date Type Department Care Team Description 04/10/2017 Shoe Cleaner Report Medical Records [address] [place] [address] [place] Camejo Social History Tobacco Use Types Packs/Day Years [...] on filedocumented in this encounter Care Teams Carport Erector Relationship Specialty Start Date End Date Jarrett Merlos MD PCP - General 06/08/01 03/22/20 Lee Fabian MD [address] [place] [address] PCP - General Internal Medicine 03/23/20 documented as of this encounter
--- OUTSIDE RECORDS SUMMARY | 2024-12-10 15:18 | XMS_ITS | Encounter Summary ---
Author Organization [employer] [facility] Address [address] [place] [address] Care Team Providers Care Motion Picture Actor Name Role Phone Lee Fabian MD Primary Care Provider [phone] Encounter Details Date Type Department Care Team Description 06/30/2020 Steak Sauce Maker Report Medical Records [address] [place] [address] Re[facility] [place] Social History Tobacco Use Types Packs/Day Years [...] or suspected to have Coronavirus / COVID-19? No / Unsure 06/26/2020 8:41 AM EDT documented as of this encounter Plan of Treatment Not on file documented as of this encounter Visit Diagnoses Not on filedocumented in this encounter Care Teams Motion Picture Actor Relationship Specialty Start Date End Date Lee Fabian MD [address] [place] [address] PCP - General Internal Medicine 03/23/20 documented as of this encounter
--- OUTSIDE RECORDS SUMMARY | 2024-12-10 15:18 | XMS_ITS | Encounter Summary ---
Author Organization [facility] Address [address] [place] [address] Care Team Providers Care Strike Planning Applications Name Role Phone Lee Fabian MD Primary Care Provider [phone] Reason for Referral * Consultation (Routine) - Authorized Specialty Diagnoses / Procedures Referred By Contac t Referred To Contact Audiology Diagnoses Hearing loss, unspecified hearing loss type, unspecified laterality Lee Fabian MD [address] [place] [id number] Phone: tel: fax: [facility] [address] [place] [address], [address] [place], [place] Phone: tel: Referral ID Status Reason Start Date Expiration Date Visits Requested Visits Authorized [id number] Authorized Specialty Services Required 12/06/2024 12/06/2025 1 1 Reason for Visit * Reason Comments Hospital Follow-up [facility] Encounter Details Date Type Department Care Team (Late st Contact Info) Description 12/06/2024 10:30 AM EDT Office Visit Internal Medicine - [address] [phone] Lee Fabian MD [address] [place] [id number] Type 2 diabetes mellitus with foot ulcer, unspecified whether mcc insulin use ([facility]) (Primary Dx); Memory impairment; Hearing loss, unspecified hearing loss type, unspecified laterality; Other cerebral infarction (CMS/HCC) Social History Tobacco Use Types Packs/Day Years [...] Sign Reading Time Taken Comments Blood Pressure 140/62 12/06/2024 10:14 AM EDT Pulse 60 12/06/2024 10:14 AM EDT Temperature - - Respiratory Rate - - Oxygen Saturation - - Inhaled Oxygen Concentration - - Weight - [...] documented in this encounter Progress Notes * Lee Fabian MD - 12/06/2024 10:30 AM EDT CHIEF COMPLAINT: Chief Complaint Patient presents with Hospital Follow-up [facility] IDENTIFIER: Luca Crowe. 64 y.o.. HPI: History of Present Illness The patient presents for evaluation of short-term memory loss, hearing impairment, gastrointestinalissues, and for diabetic footwear. He is accompanied by his son. Patient was recently in the hospital where he underwent amputation left foot He was hospitalized at [facility] for 6 weeks, during which he experienced fever and sweating, indicative of sepsis. His pacemaker was removed, and there is uncertainty regarding the need for Watchman device removal. He is scheduled for a transesophageal echocardiogram (TATIANNA) on either 12/22/2024 or 12/25/2024 to assess for any vegetative growth. He is currently receiving IV abx infusions and is under the care of visiting nurses and physical therapists. He has an upcoming appointment at [facility] in 2 weeks for the first mold of his prosthetic. He requires a diabetic shoe for his foot as the wound has healed. He is currently using an offloading shoe but will need a prosthetic once he starts walking. He has been experiencing short-term memory loss since his surgery or infection, often losing track of his thoughts and forgetting basic information. He plans to consult with his neurologist regarding this issue. An MRI did not reveal any abnormalities. He has been experiencing severe hand tremors, which have slightly improved. He also reports hearing loss and believes he may need hearing aids. He has been experiencing dry heaving 2 to 3 times a day, which he attributes to a stomach virus. He plans to keep his stomach empty until the symptoms subside. He has a scheduled ablation procedure on either 01/13/2025 or 01/14/2025. He has been experiencing short-term memory loss since his surgery or infection, often losing track of his thoughts and forgetting basic information. He plans to consult with his neurologist regardingthis issue. An MRI did not reveal any abnormalities. He also reports hearing loss and believes he may need hearing aids. . PAST MEDICAL HISTORY: Past Medical History: Diagnosis Date Atrial fibrillation ([facility]) Gastroesophageal reflux disease 05/30/2024 DX:Gastroesophageal reflux disease Hypertensive disorder 12/29/2020 DX:Hypertensive disorder Obesity, unspecified 09/10/2006 DX:Obesity, unspecified Osteoarthrosis, unspecified whether generalized or localized, lower leg 10/06/2006 DX:Osteoarthrosis, unspecified whether generalized or localized, lower leg Other and unspecified hyperlipidemia 09/10/2006 DX:Other and unspecified hyperlipidemia Other and unspecified hyperlipidemia 09/10/2006 DX:Other and unspecified hyperlipidemia Presence of cardiac pacemaker for complete atrioventricular block ([facility]) Tobacco use disorder 09/10/2006 DX:Tobacco use disorder; COMMENT: stopped 10/2003 Type II or unspecified type diabetes mellitus without mention of complication, not stated as uncontrolled 09/10/2006 DX:Type II or unspecified type diabetes mellitus without mention of complication, not stated as uncontrolled PAST SURGICAL HX: Past Surgical History: Procedure Laterality Date BARIATRIC SURGERY 2018 CARDIOVERSION FOOT SURGERY Right 2015 had 4 more surguries following this reconstrution FOOT SURGERY Right 2018 Right TMA FOOT SURGERY Left 09/10/2024 CALCANECTOMY KNEE SURGERY Left 2016 got infected, removal of hardware and replaced with new in the same year PACEMAKER INSERTION PACEMAKER PROCEDURE 2016 SOCIAL HISTORY: FAMILY HISTORY: Family History Problem Relation Name Age of Onset Arthritis Mother Cataracts Mother Arthritis Father Cataracts Sister Blindness Neg Hx Glaucoma Neg Hx Macular degeneration Neg Hx Strabismus Neg Hx MEDICATIONS DISCONTINUED/REORDERED: There are no discontinued medications. ACTIVE MEDICATIONS: Current Outpatient Medications on File Prior to Visit Medication Sig Dispense Refill acetaminophen (TYLENOL) 325 mg tablet Take 2 tablets (650 mg total) by mouth every 6 hours as needed. amiodarone (PACERONE) 200 mg tablet Take 1 tablet (200 mg total) by mouth 2 (two) times a day. 180 each 3 amLODIPine (NORVASC) 5 mg tablet Take 1 tablet (5 mg total) by mouth 1 (one) time each day. aspirin 81 mg EC tablet Take 1 tablet (81 mg total) by mouth 1 (one) time each day. 30 each 11 bumetanide (BUMEX) 2 mg tablet Take 1 tablet (2 mg total) by mouth 1 (one) time each day. buPROPion SR (WELLBUTRIN SR) 150 mg 12 hr tablet Take 1 tablet (150 mg total) by mouth 2 (two) times a day. Do not crush, chew, or split. 60 each 1 donepeziL (ARICEPT) 10 mg tablet Take 1 tablet (10 mg total) by mouth 1 (one) time each day. folic acid (FOLVITE) 1 mg tablet Take 1 tablet (1,000 mcg total) by mouth 1 (one) time each day. FreeStyle Wallace 3 Sensor device 1 EA. glipiZIDE 2.5 mg tablet Take 1 tablet by mouth 2 (two) times a day. Jardiance 25 mg tablet Take 1 tablet (25 mg total) by mouth 1 (one) time each day. magnesium aspart,citrate,oxide (Triple Magnesium Complex) 400 mg magnesium capsule Take 1 capsule by mouth 1 (one) time each day. metFORMIN (FORTAMET) 500 mg 24 hr tablet Take 1 tablet (500 mg total) by mouth 1 (one) time each day with dinner. Do not crush, chew, or split. metoprolol tartrate (LOPRESSOR) 50 mg tablet Take 1 tablet (50 mg total) by mouth 2 (two) times a day. nicotine (NICODERM CQ) 7 mg/[address] 1 patch on the skin 1 (one) time each day at the same time. oxyCODONE (ROXICODONE) 5 mg immediate release tablet Take 1 tablet (5 mg total) by mouth every 6 (six) hours if needed for moderate pain. pantoprazole (PROTONIX) 40 mg EC tablet Take 1 tablet (40 mg total) by mouth 1 (one) time each day. pregabalin (LYRICA) 150 mg capsule Take 1 capsule (150 mg total) by mouth 2 (two) times a day. [DISCONTINUED] pravastatin (PRAVACHOL) 20 mg tablet Take 1 tablet (20 mg total) by mouth 1 (one) time each day. gabapentin (NEURONTIN) 100 mg capsule Take 1 capsule (100 mg total) by mouth 3 (three) times a day. No current facility-administered medications on file prior to visit. ALLERGIES: Allergies Allergen Reactions Lisinopril Hyperkalemia, Dehydration, Hives, Other and GI intolerance hyperkalemia Other reaction(s): Other (See Comments) hyperkalemia hyperkalemia Other Reaction(s): KIDNEY DAMAGE ROS: Constitutional: no weakness fever/ sweats, or weight change Eyes: no blurred vision,pain or discharge ENT: no mouth pain,oral bleeding, congestion or discharge Respiratory: no shortness of breath, cough or wheezing Cardiovascular:no chest pain or palpitations, no orthopnea or PND GI: no nausea, vomiting or diarrhea; no rectal bleeding or dark stools : no dysuria or frequency; no nocturia or hesitancy PHYSICAL EXAM: Vitals: 12/06/24 1014 BP: (!) 140/62 Pulse: 60 BMI PLAN BMI There is no height or weight on file to calculate BMI. General: the patient is in no acute distress.A & Ox 3 Head/Neck: neck supple. Lungs: clear to percussion and auscultation. Heart: regular rhythm; . Abdominal exam; positive bowel sounds; soft, . Extremities: no cyanosis, clubbing or edema. LABS: none IMPRESSION: Encounter Diagnoses Name Primary? Memory impairment Type 2 diabetes mellitus with foot ulcer, unspecified whether terminal system operator insulin use ([facility]) Yes Hearing loss, unspecified hearing loss type, unspecified laterality Other cerebral infarction ([facility]) PLAN: Assessment & Plan 1. Short-term memory loss: Acute. - Conduct a comprehensive blood panel to investigate reversible causes such as thyroid dysfunction,vitamin D deficiency, or B12 deficiency. - Consult with neurologist for further evaluation. 2. Hearing impairment. - Initiate referral for a hearing test to assess the need for hearing aids. 3. Gastrointestinal issues. - Advise to keep stomach empty and stay hydrated until symptoms subside. 4. Diabetic footwear. - Process Durable Medical Equipment (DME) order for diabetic shoes and inserts. - Provide signed notes to [facility] to schedule an appointment. Follow-up - Follow-up appointment for a transesophageal echocardiogram (TATIANNA) on December 22 or . - Follow-up with infection control doctor to check for vegetation. - Follow-up with [facility] for blood work and EKG later this month. - Ablation scheduled for January 13 or . I have maintained a long-term, longitudinal relationship with this patient, overseeing care of chronic conditions including diabetes memory impairment hearing loss this care relationship has significantly influenced my decision making and treatment plans during today's encounter. Orders Placed This Encounter Procedures Ambulatory referral to Audiology Standing Status: Future Standing Expiration Date: 12/06/2025 Referral Priority: Routine Referral Type: Consultation Referral Reason: Specialty Services Required Requested Specialty: Audiology Number of Visits Requested: 1 Additional Orders: None I have obtained verbal consent from Luca Mcknight Sebastien prior to the recording. I have advised Luca Mcknight Sebastien that he may refuse the recording and require the recording to be turned off at any time during this encounter. Lee Fabian MD documented in this encounter Plan of Treatment Scheduled Referrals Name Type Priority Associated Diagnoses Order Schedule Ambulatory referral to Audiology Outpatient Referral Routine Hearing loss, unspecified hearing loss type, unspecified laterality 1 Occurrences starting 12/06/2024 until 12/06/2025 documented as of this encounter Goals Goal [...] as of this encounter Visit Diagnoses Diagnosis Type 2 diabetes mellitus with foot ulcer, unspecified whether mcc insulin use ([facility])- Primary Memory impairment Memory loss Hearing loss, unspecified hearing loss type, unspecified laterality Other cerebral infarction (CMS/HCC) documented in this encounter Discontinued Medications Medication Sig Discontinue Reason Start Date End Da te pravastatin (PRAVACHOL) 20 mg tablet Take 1 tablet (20 mg total) by mouth 1 (one) time each day. Discontinued by another clinician 12/06/2024 documented as of this encounter Historical Medications * This list may reflect changes made after this encounter. gabapentin (NEURONTIN) 100 mg capsule Take 1 capsule (100 mg total) by mouth 3 (three) times a day. folic acid (FOLVITE) 1 mg tablet Take 1 tablet (1,000 mcg total) by mouth 1 (one) time each day. amLODIPine (NORVASC) 5 mg tablet Take 1 tablet (5 mg total) by mouth 1 (one) time each day. 11/26/2024 added in this encounter Additional Health Concerns Active Problems Noted Date Diagnosed Date Impaired Tissue 08/10/2024 Education needed on impact of smoking on wound 1 10/10/2023 Education needed related to ulceration/compromised skin integrity. 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
--- OUTSIDE RECORDS SUMMARY | 2024-12-10 15:18 | XMS_ITS | Encounter Summary ---
Author Organization [facility] Address [address] [place] [address] Care Team Providers Care Black Topper Name Role Phone Jarrett Merlos MD Primary Care Provider Unavail able Lee Fabian MD Primary Care Provider [phone] Encounter Details Date Type Department Care Team Description 03/03/2019 Flight Technician Report Medical Records [address] [place] [id number] April Tiwari PA-C Social History Tobacco Use Types Packs/Day [...] on filedocumented in this encounter Care Teams Black Topper Relationship Specialty Start Date End Date Jarrett Merlos MD PCP - General 06/08/01 03/22/20 Lee Fabian MD [address] [place] [id number] PCP - General Internal Medicine 03/23/20 documented as of this encounter
--- OUTSIDE RECORDS SUMMARY | 2024-12-10 15:18 | XMS_ITS | Encounter Summary ---
Author Organization [employer] [facility] Address [address] [place] [address] Care Team Providers Care Burrer Machine Name Role Phone Jarrett Merlos MD Primary Care Provider Unavail able Lee Fabian MD Primary Care Provider [phone] Encounter Details Date Type Department Care Team Description 04/19/2017 Hospital Medical Records [address] [place] [address] April Tiwari PA-C Social History Tobacco Use [...] on filedocumented in this encounter Care Teams Burrer Machine Relationship Specialty Start Date End Date Jarrett Merlos MD PCP - General 06/08/01 03/22/20 Lee Fabian MD [address] [place] [address] PCP - General Internal Medicine 03/23/20 documented as of this encounter
--- OUTSIDE RECORDS SUMMARY | 2024-12-10 15:18 | XMS_ITS | Encounter Summary ---
Author Organization [facility] [employer] [facility] Address [address] [place] [address] Care Team Providers Care Blend Plant Operator Name Role Phone Jarrett Merlos MD Primary Care Provider Unavail able Lee Fabian MD Primary Care Provider [phone] Encounter Details Date Type Department Care Team Description 05/20/2017 Gear Repairer Report Medical Records [address] [place] [address] Jose Wilhelm [address] [place] [address] [address] [place] [address] Social History Tobacco Use Types Packs/Day Years [...] on filedocumented in this encounter Care Teams Blend Plant Operator Relationship Specialty Start Date End Date Jarrett Merlos MD PCP - General 06/08/01 03/22/20 Lee Fabian MD [address] [place] [address] PCP - General Internal Medicine 03/23/20 documented as of this encounter
--- OUTSIDE RECORDS SUMMARY | 2024-12-10 15:18 | XMS_ITS | Encounter Summary ---
Author Organization [facility] Address [address] [place] [address] Care Team Providers Care Photolettering Machine Operator Name Role Phone Jarrett Merlos MD Primary Care Provider Unavail able Lee Fabian MD Primary Care Provider [phone] Encounter Details Date Type Department Care Team Description 08/15/2017 [facility] Medical Records [address] [place] [address] Duncan Clemente Social History Tobacco Use Types Packs/Day Years [...] on filedocumented in this encounter Care Teams Photolettering Machine Operator Relationship Specialty Start Date End Date Jarrett Merlos MD PCP - General 06/08/01 03/22/20 Lee Fabian MD [address] [place] [address] PCP - General Internal Medicine 03/23/20 documented as of this encounter
--- OUTSIDE RECORDS SUMMARY | 2024-12-10 15:18 | XMS_ITS | Encounter Summary ---
Author Organization [employer] [facility] Address [address] [place] [address] Care Team Providers Care Web Design Specialist Name Role Phone Jarrett Merlos MD Primary Care Provider Unavail able Lee Fabian MD Primary Care Provider [phone] Encounter Details Date Type Department Care Team Description 03/14/2015 Package Sealer Report Medical Records [address] [place] [address] Dalals Camejo Social History Tobacco Use Types Packs/Day [...] on filedocumented in this encounter Care Teams Web Design Specialist Relationship Specialty Start Date End Date Jarrett Merlos MD PCP - General 06/08/01 03/22/20 Lee Fabian MD [address] [place] [address] PCP - General Internal Medicine 03/23/20 documented as of this encounter
--- OUTSIDE RECORDS SUMMARY | 2024-12-10 15:18 | XMS_ITS | Encounter Summary ---
Author Organization [employer] Address [address] [place] [address] Care Team Providers Care Chief Of Staff Doctor Name Role Phone Lee Fabian MD Primary Care Provider Unavail able Vitaliy Fields MD Unavailable [phone] Dallas Camejo MD Unavailable Rolando Lopez MD Unavailable Cesar Fair MD Unavailable [phone] Daisy Her PT Unavailable Reason for Referral * Cardiovascular Test (Routine) - Authorized Specialty Diagnoses / Procedures Referred By Contac t Referred To Contact Diagnoses Bacteremia Procedures Transesophageal Echocardiogram Ena Mtz MD [address] [place] [address] Referral ID Status Reason Start Date Expiration Date V isits Requested Visits Authorized [id number] Authorized 12/03/2024 12/04/2025 1 1 Reason for Visit * Reason Comments Referral Encounter Details Date Type Department Care Team ([facility] st Contact Info) Description 12/02/[address] [phone] Christen Whitney MA [address] [place] [address] Referral Social History Tobacco Use Types Packs/Day Years Used Date Smoking Tobacco: Former Cigarettes 1 29.2 1 977 - 2003 Smokeless Tobacco: Never Alcohol Use Standard Drinks/Week Comments Yes 21 (1 standard drink = 0.6 oz pu re alcohol) [facility] Utilities Answer Date Recorded In the past 12 months has th e [employer], gas, oil, or water [employer] threatened to shut off services in your [...] any time in the past 12 m [facility], were you homeless or living in a fci (including now)? No 11/03/2024 Sex and Gender Information Value Date Recorded Sex Assigned at Male 09/03/2024 12:21 PM EST Gender Identity Male 09/03/2024 12:21 PM EST Sexual Orientation Heterosexual (straight) 09/10 7:58 AM EST documented as of this encounter Miscellaneous Notes * Telephone Encounter - Elizabeth Hammond RN - 12/03/2024 3:50 PM EST Call to Luca and provided with phone number to scheduled TATIANNA. Pt will call back if any problems scheduling. * Telephone Encounter - Elizabeth Hammond RN - 12/03/2024 2:47 PM EST Call to Luca and advised that orders placed for TATIANNA per Dr. Mtz to have done between 12/22 and 12/27/24. Luca is asking for phone number to call and schedule. Call to [place] department [phone] and confirmed phone number to schedule TATIANNA. * Telephone Encounter - Ena Mtz MD [...] Upcoming Encounters Date Type Department Care Team ([facility] st Contact Info) Description 12/14/2024 2:00 PM EDT Office Visit [facility] [address] [phone] Dallas Camejo MD [address] [place] [address] 12/16/2024 8:30 AM EDT Office Visit [facility] Infectious Disease [address] [place] [phone] Ena Mtz MD [address] [place] [address] 12/22/2024 10:00 AM EDT Appointment [facility] Heart & Vascular [facility] - Echocardiography Laboratory [address] [place] [phone] Ena Mtz MD [address] [place] [address] Scheduled Orders Name Type Priority Associated Diagnoses Order Schedule Transesophageal Echocardiogram Echocardiography Routine Bacteremia Expected: 12/22/2024, Expires: 12/03/2025 documented as of this encounter Visit Diagnoses Diagnosis Bacteremia- Primary documented in this encounter Care Teams Chief Of Staff Doctor Relationship Specialty Start Date End Date Lee Fabian MD PCP - General Internal Medicine 09/02/24 Vitaliy Fields MD [address] [address] Cardiovascular Disease 09/02/24 Dallas Camejo MD [address] [place] [address] Surgery, Orthopedic 09/02/24 Rolando Lopez MD [address] Transplant - Ph [address] [place] [address] Physician Nephrology 09/02/24 Cesar Fair MD [address] [address] Surgery, Cardiac 11/08/24 Daisy Her, PT 85 [facility] [address] [place] [address] [employer] [employer] [facility] 11/18/24 documented as of this encounter
--- OUTSIDE RECORDS SUMMARY | 2024-12-10 15:18 | XMS_ITS | Encounter Summary ---
Author Organization [employer] [facility] Address [address] [place] [address] Care Team Providers Care Barrel Cap Setter Name Role Phone Jarrett Merlos MD Primary Care Provider Unavail able Lee Fabian MD Primary Care Provider [phone] Encounter Details Date Type Department Care Team Description 11/30/2018 Business And Marketing Teacher Report Medical Records [address] [place] [address] Marcia Urrutia MD Social History Tobacco Use Types Packs/Day [...] on filedocumented in this encounter Care Teams Barrel Cap Setter Relationship Specialty Start Date End Date Jarrett Merlos MD PCP - General 06/08/01 03/22/20 Lee Fabian MD [address] [place] [phone] PCP - General Internal Medicine 03/23/20 documented as of this encounter
--- OUTSIDE RECORDS SUMMARY | 2024-12-10 15:18 | XMS_ITS | Encounter Summary ---
Author Organization [facility] Address [address] [place] [address] Care Team Providers Care Estimator Printing Plate Making Name Role Phone Jarrett Merlos MD Primary Care Provider Unavail able Lee Fabian MD Primary Care Provider [phone] Encounter Details Date Type Department Care Team Description 01/29/2017 Cost Manager Report Medical Records [address] [place] [address] Lucrecia Duckworth NP Social History Tobacco Use [...] on filedocumented in this encounter Care Teams Estimator Printing Plate Making Relationship Specialty Start Date End Date Jarrett Merlos MD PCP - General 06/08/01 03/22/20 Lee Fabian MD [address] [place] [address] PCP - General Internal Medicine 03/23/20 documented as of this encounter
--- OUTSIDE RECORDS SUMMARY | 2024-12-10 15:18 | XMS_ITS | Encounter Summary ---
Author Organization [facility] Address [address] [place] [address] Care Team Providers Care Business Machine Mechanic Name Role Phone Jarrett Merlos MD Primary Care Provider Unavail able Lee Fabian MD Primary Care Provider [phone] Encounter Details Date Type Department Care Team Description 12/08/2018 Coal Tram Driver Report Medical Records [address] [place] [address] April Tiwari PA-C Social History Tobacco Use [...] on filedocumented in this encounter Care Teams Business Machine Mechanic Relationship Specialty Start Date End Date Jarrett Merlos MD PCP - General 06/08/01 03/22/20 Lee Fabian MD [address] [place] [address] PCP - General Internal Medicine 03/23/20 documented as of this encounter
--- OUTSIDE RECORDS SUMMARY | 2024-12-10 15:18 | XMS_ITS | Encounter Summary ---
Author Organization [facility] Address [address] [place] [address] Care Team Providers Care Willow Specialists Name Role Phone Jarrett Merlos MD Primary Care Provider Unavail able Lee Fabian MD Primary Care Provider [phone] Encounter Details Date Type Department Care Team Description 12/26/2016 Budget Accountant Report Medical Records [address] [place] [address] Misty Munoz Social History Tobacco Use Types [...] on filedocumented in this encounter Care Teams Willow Specialists Relationship Specialty Start Date End Date Jarrett Merlos MD PCP - General 06/08/01 03/22/20 Lee Fabian MD [address] [place] [address] PCP - General Internal Medicine 03/23/20 documented as of this encounter
--- OUTSIDE RECORDS SUMMARY | 2024-12-10 15:18 | XMS_ITS | Encounter Summary ---
Author Organization [facility] Address [address] [place] [address] Care Team Providers Care Production Support Analyst Name Role Phone Jarrett Merlos MD Primary Care Provider Unavail able Lee Fabian MD Primary Care Provider [phone] Encounter Details Date Type Department Care Team Description 10/01/2017 Accounts Payable Bookkeeper Report Medical Records [address] [place] [address] Guy Trejo MD Social History Tobacco Use Types Packs/Day [...] on filedocumented in this encounter Care Teams Production Support Analyst Relationship Specialty Start Date End Date Jarrett Merlos MD PCP - General 06/08/01 03/22/20 Lee Fabian MD [address] [place] [address] PCP - General Internal Medicine 03/23/20 documented as of this encounter
--- OUTSIDE RECORDS SUMMARY | 2024-12-10 15:18 | XMS_ITS | Encounter Summary ---
Author Organization [facility] Address [address] [place] [address] Care Team Providers Care Rd Manager Name Role Phone Lee Fabian MD Primary Care Provider [phone] Encounter Details Date Type Department Care Team Description 04/19/2020 Telephone Adult Medicine [address] [address] Bev Zepeda PA-C Social History Tobacco Use Types Packs/Day Years Used Date Smoking Tobacco: Former Cigarettes 1 15 Q uit: 10/30/2003 Smokeless Tobacco: Never Alcohol Use Standard Drinks/Week Comments Yes 0 (1 standard drink = 0.6 oz pur e alcohol) 4-5 per week Sex Assigned at Date Recorded Not on file documented as of this encounter Miscellaneous Notes * Telephone Encounter - Bev Zepeda PA-C - 04/19/2020 4:10 PM EDT Patient was not given an appointment at general surgery until 05/01. Given the status of his wound with slight dehiscence after suture removal, I have contacted general surgery to see if I can have a sooner appointment scheduled. The BSR was able to schedule an appointment tomorrow, 04/20 at 9:[address] White. Patient was called and message was left on his cell phone with this information. I will attempt to call him again later to ensure that this message is received. Thank you Bev Zepeda PA-C documented in this encounter Plan of Treatment Not on file documented as of this encounter Visit Diagnoses Not on filedocumented in this encounter Care Teams Rd Manager Relationship Specialty Start Date End Date Lee Fabian MD [address] [place] [address] PCP - General Internal Medicine 03/23/20 documented as of this encounter
--- OUTSIDE RECORDS SUMMARY | 2024-12-10 15:18 | XMS_ITS | Encounter Summary ---
Author Organization [facility] Address [address] [place] [address] Care Team Providers Care Inside Channel Account Manager Name Role Phone Jarrett Merlos MD Primary Care Provider Unavail able Lee Fabian MD Primary Care Provider [phone] Encounter Details Date Type Department Care Team Description 06/03/2019 Test Deck Supervisor Report Medical Records [address] [place] [address] Héctor Blanchard Social History Tobacco Use Types [...] on filedocumented in this encounter Care Teams Inside Channel Account Manager Relationship Specialty Start Date End Date Jarrett Merlos MD PCP - General 06/08/01 03/22/20 Lee Fabian MD [address] [place] [address] PCP - General Internal Medicine 03/23/20 documented as of this encounter
--- OUTSIDE RECORDS SUMMARY | 2024-12-10 15:18 | XMS_ITS | Encounter Summary ---
Author Organization [facility] Address [address] [place] [address] Care Team Providers Care Orchid Hand Name Role Phone Jarrett Merlos MD Primary Care Provider Unavail able Lee Fabian MD Primary Care Provider [phone] Encounter Details Date Type Department Care Team Description 12/27/2016 Light Equipment Operator Report Medical Records [address] [place] [address] Sterling Meier Social History Tobacco Use Types Packs/Day Years [...] on filedocumented in this encounter Care Teams Orchid Hand Relationship Specialty Start Date End Date Jarrett Merlos MD PCP - General 06/08/01 03/22/20 Lee Fabian MD [address] [place] [address] PCP - General Internal Medicine 03/23/20 documented as of this encounter
--- OUTSIDE RECORDS SUMMARY | 2024-12-10 15:18 | XMS_ITS | Encounter Summary ---
Author Organization [employer] Address [address] [place] [address] Care Team Providers Care Pcmh Specialist Name Role Phone Jarrett Merlos MD Primary Care Provider Unavail able Lee Fabian MD Primary Care Provider [phone] Encounter Details Date Type Department Care Team Description 08/22/2014 Dog Handler Or Trainer Report Medical Records [address] [place] [address] Social History Tobacco Use Types Packs/Day Years [...] on filedocumented in this encounter Care Teams Pcmh Specialist Relationship Specialty Start Date End Date Jarrett Merlos MD PCP - General 06/08/01 03/22/20 Lee Fabian MD [address] [place] [address] PCP - General Internal Medicine 03/23/20 documented as of this encounter
--- OUTSIDE RECORDS SUMMARY | 2024-12-10 15:18 | XMS_ITS | Encounter Summary ---
Author Organization [facility] Address [address] [place] [address] Care Team Providers Care Fiber Worker Name Role Phone Jarrett Merlos MD Primary Care Provider Unavail able Lee Fabian MD Primary Care Provider [phone] Encounter Details Date Type Department Care Team Description 10/19/2015 Supervisor Train Operations Report Medical Records [address] [place] [address] Edson Cheung Social History Tobacco Use Types Packs/Day Years [...] on filedocumented in this encounter Care Teams Fiber Worker Relationship Specialty Start Date End Date Jarrett Merlos MD PCP - General 06/08/01 03/22/20 Lee Fabian MD [address] [place] [address] PCP - General Internal Medicine 03/23/20 documented as of this encounter
--- OUTSIDE RECORDS SUMMARY | 2024-12-10 15:18 | XMS_ITS | Encounter Summary ---
Author Organization [facility] Address [address] [place] [address] Care Team Providers Care Lombardi Developer Name Role Phone Jarrett Merlos MD Primary Care Provider Unavail able Lee Fabian MD Primary Care Provider [phone] Encounter Details Date Type Department Care Team Description 06/17/2017 Manager Center Report Medical Records [address] [place] [address] Dept., [facility] Occupational & Pt Social History Tobacco Use Types Packs/Day Years [...] on filedocumented in this encounter Care Teams Lombardi Developer Relationship Specialty Start Date End Date Jarrett Merlos MD PCP - General 06/08/01 03/22/20 Lee Fabian MD [address] [place] [address] PCP - General Internal Medicine 03/23/20 documented as of this encounter
--- OUTSIDE RECORDS SUMMARY | 2024-12-10 15:19 | XMS_ITS | Encounter Summary ---
Author Organization [facility] Address [address] [place] [address] Care Team Providers Care Bundle Breaker Name Role Phone Jarrett Merlos MD Primary Care Provider Unavail able Lee Fabian MD Primary Care Provider [phone] Encounter Details Date Type Department Care Team Description 02/28/2011 Hospital Medical Records [address] [place] [address] Ariane Carter PA-C [address] [place] [address] Social History Tobacco Use Types Packs/Day Years [...] on filedocumented in this encounter Care Teams Bundle Breaker Relationship Specialty Start Date End Date Jarrett Merlos MD PCP - General 06/08/01 03/22/20 Lee Fabian MD [address] [place] [address] PCP - General Internal Medicine 03/23/20 documented as of this encounter
--- OUTSIDE RECORDS SUMMARY | 2024-12-10 15:19 | XMS_ITS | Encounter Summary ---
Author Organization [facility] Address [address] [place] [address] Care Team Providers Care Pbx Wire Chief Name Role Phone Lee Fabian MD Primary Care Provider Unavail able Vitaliy Fields MD Unavailable Dallas Camejo MD Unavailable Rolando Lopez MD Unavailable [phone] Cesar Fair MD Unavailable [phone] Daisy Her PT Unavailable [phone] Reason for Visit * Reason Comments Appointment Encounter Details Date Type Department Care Team ([facility] st Contact Info) Description 11/19/2024 Telephone [facility] at [address] [phone] Nilton Zepeda MA [address] [address] Appointment Social History Tobacco Use Types Packs/Day Years Used Date Smoking Tobacco: Former Cigarettes 1 29.2 1 7 - 2003 Smokeless Tobacco: Never Alcohol Use Standard Drinks/Week Comments Yes 21 (1 standard drink = 0.6 oz pu re alcohol) [facility] Utilities Answer Date Recorded In the past 12 months has [employer], gas, oil, or water company threatened to [...] time in the past 12 m [facility], were you homeless or living in a jail (including now)? No 11/03/2024 Sex and Gender Information Value Date Recorded Sex Assigned at Male 09/03/2024 12:21 PM EST Gender Identity Male 09/03/2024 12:21 PM EST Sexual Orientation Heterosexual (straight) 09/10 7:58 AM EST documented as of this encounter Miscellaneous Notes * Telephone Encounter - Nilton Zepeda MA - 11/19/2024 3:28 PM EST ----- Message from Dental Laboratory Worker Nilton Multani MA sent at 11/19/2024 3:28 PM EST ----- Scheduled for 12/16/2024 ??8:30 AM ----- Message ----- From: Ena Mtz MD Sent: 11/19/2024 2:49 PM EST To: [facility] Block Trader Please schedule Hospital follow-up visit - in person In 4 weeks documented in this encounter Plan of Treatment Upcoming Encounters Date Type Department Care Team (Late st Contact Info) Description 12/14/2024 2:00 PM EDT Office Visit [facility] [phone] Dallas Camejo MD [address] [place] [address] 12/16/2024 8:30 AM EDT Office Visit [facility] Infectious Disease [address] [place] [phone] Ena Mtz MD [address] [place] [phone] 12/22/2024 10:00 AM EDT Appointment [facility] [place] [facility] - Echocardiography Laboratory [address] [place] [phone] Ena Mtz MD [address] [place] [address] documented as of this encounter Visit Diagnoses Not on filedocumented in this encounter 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/10/24 09/16/2024 09/16/2024 11/24/2024 3:08 P M EST documented as of this encounter Care Teams Pbx Wire Chief Relationship Specialty Start Date End Date Lee Fabian MD PCP - General Internal Medicine 09/02/24 Vitaliy Fields MD [address] [address] Cardiovascular Disease 09/02/24 Dallas aCmejo MD [address] [place] [address] Surgery, Orthopedic 09/02/24 Rolando Lopez MD [address] Transplant - Ph [address] [place] [address] Physician Nephrology 09/02/24 Cesar Fair MD [address] [phone] Surgery, Cardiac 11/08/24 Daisy Her, PT 85 [facility] [address] [place] [address] Hereditary Cancer Program CoordinatorCream Beater Medicine and [facility] 11/18/24 documented as of this encounter
--- OUTSIDE RECORDS SUMMARY | 2024-12-10 15:19 | XMS_ITS | Encounter Summary ---
Author Organization [facility] Address [address] [place] [address] Care Team Providers Care Automotive Design Layout Drafter Name Role Phone Jarrett Merlos MD Primary Care Provider Unavail able Lee Fabian MD Primary Care Provider [phone] Encounter Details Date Type Department Care Team Description 02/06/2015 Fishing Manager Report Medical Records [address] [place] [address] Roberto Espinoza Social History Tobacco Use Types Packs/Day Years [...] on filedocumented in this encounter Care Teams Automotive Design Layout Drafter Relationship Specialty Start Date End Date Jarrett Merlos MD PCP - General 06/08/01 03/22/20 Lee Fabian MD [address] [place] [address] PCP - General Internal Medicine 03/23/20 documented as of this encounter
--- OUTSIDE RECORDS SUMMARY | 2024-12-10 15:19 | XMS_ITS | Encounter Summary ---
Author Organization [facility] Address [address] [place] [address] Care Team Providers Care Leather Cleaner Name Role Phone Jarrett Merlos MD Primary Care Provider Unavail able Lee Fabian MD Primary Care Provider [phone] Encounter Details Date Type Department Care Team Description 11/21/2015 Home Health Certification Medical Records [address] [place] [address] Abstract, Provider Social History Tobacco Use Types [...] on filedocumented in this encounter Care Teams Leather Cleaner Relationship Specialty Start Date End Date Jarrett Merlos MD PCP - General 06/08/01 03/22/20 Lee Fabian MD [address] [place] [address] PCP - General Internal Medicine 03/23/20 documented as of this encounter
--- OUTSIDE RECORDS SUMMARY | 2024-12-10 15:19 | XMS_ITS | Clinical Summary ---
Author Organization [facility] Address [address] [place] [address] Care Team Providers Care Director Funds Development Name Role Phone Lee Fabian MD Primary Care Provider Unavail able Vitaliy Fields MD Unavailable [place] Camejo MD Unavailable Rolando Lopez MD Unavailable Cesar Fair MD Unavailable Daisy Her PT Unavailable [phone] Allergies Active Allergy Reactions Criticality Noted Date [...] Continuous Glucose Sensor (FreeStyle Wallace 3 Sensor) [facility] INJECT 1 DEVICE INTO THE SKIN EVERY 14 DAYS 06/30/20 24 Active melatonin 10 MG Tab tablet Take [...] mouth daily. 30 tablet 11/25/19 025 Active amiODARONE (PACERONE) 200 MG tabletIndications: Endocarditis Take 1 tablet (200 mg total) by mouth daily. 30 tablet 11/25/19 025 Active folic acid (FOLVITE) 1 MG tabletIndications: Endocarditis Take 1 tablet (1 mg total) by mouth daily. 30 tablet 11/25/19 25 025 Active methocarbamol (ROBAXIN) 500 MG tabletIndications: Below-knee amputation of left lower extremity, initial encounter ([facility]) Take 1 tablet (500 mg total) by mouth 4 (four) times a day. 28 tablet 12/01/19 Active HYDROmorphone (DILAUDID) 2 MG tabletIndications: Below-knee amputation of left lower extremity, initial encounter ([facility]) Take 1 tablet (2 mg total) by mouth 4 times daily (every 6 hours) as needed for severe pain or moderate pain. Max Daily Amount: 8 mg 28 tablet 12/01/19 25 Active SUPPLY DME MISCIndications:Be low-knee amputation of left lower extremity, initial encounter ([facility]) BELOW KNEE PROSTHESIS S/P LEFT BKA 11/05/24 1 each 12/02/19 25 Active amiODARONE (PACERONE) 200 MG tablet Take [...] (two) times a day. 28 tablet 10/05/19 25 025 Discontinued(St op Taking at Discharge) amLODIPine [...] hours as needed for dry eyes. 11/23/19 25 025 Discontinued(St op Taking at Discharge) sodium [...] by mouth 3 (three) times a day. 11/23/19 025 Discontinued erythromycin (ILOTYCIN) ophthalmic ointmentIndication s:Acute [...] nephrotoxic medications. Follows with Dr. Lopez in [place]. See last note 06/07/24. Hyperlipidemia Assessment & Plan (09/03/2024 9:20 AM EST): Continue pravastatin. Smoker Assessment & Plan (09/03/2024 9:21 AM EST): Smoking? Complete AV block Assessment & Plan (09/03/2024 9:22 AM EST): S/p pacemaker & watchman device. No remote monitoring per last cardiology note. Cardiology appt pending. Atrial flutter Encounters Date Type Department Care Team Description 12/07/2024 1:30 PM EDT - 12/07/2024 11:59 PM EDT Hospital Encounter [facility] Heart & Vascular [place] [facility] - Electrophysiology [address] [place] [address] Gretel Hinds, CARDIOPULMONARY PHYSICAL THERAPIST Discharge Disposition: Home or Self Care 12/07/2024 Scanned Document [facility] [address] [facility] [address] [place] [address] Alejandra Eddy 12/07/2024 Travel 12/07/2024 Orders Only [facility] [address] [facility] [phone] Ena Mtz MD 12/02/2024 Telephone [facility] [address] [place] [address] Christen Whitney MA Referral 12/01/2024 Orders Only [facility] [address] [facility] [address] [place] [phone] [place] Camejo MD Below-knee amputation of left lower extremity, initial encounter (HCC) (Primary Dx) 12/01/2024 Documentation [facility] [address] [address] Daisy Her, PT 11/30/2024 1:15 PM EST Office Visit [facility] [address] [place] [address] Sheila Childs APRN Below-knee amputation of left lower extremity, initial encounter (HCC) (Primary Dx) 11/23/2024 Telephone [facility] Infectious Disease [address] [place] [address] Nilton Zepeda MA Call Patient 11/19/2024 1:30 PM EST - 11/19/2024 2:30 PM EST Surgery [facility] Radiology [address] [place] [address] Devon Vogt, CVC INSERT (TUNNEL)W/O PORT > 5 YRS 11/19/2024 Telephone [facility] [address] [place] [address] Nilton Zepeda MA Appointment 11/18/2024 Orders Only [facility] Heart & Vascular [place] at [facility] - Electrophysiology Laboratory [address] [place] [address] Lucho Ceron MD 11/17/2024 2:20 PM EST Anesthesia Event [facility] Perioperative Surgical Services [address] [place] [address] Guido Malagon MD Gordon, Jennifer L, PA-C 11/17/2024 1:37 PM EST - 11/17/2024 4:43 PM EST Surgery [facility] Perioperative Surgical Services [address] [place] [phone] Rui Pabon MD Extraction lead(s) laser from dual PM system; [id number] 11/17/2024 Orders Only [facility] Heart Vascular [facility] - Electrophysiology [address] [place] [address] [address] [place] [phone] Gretel Hinds APRN Complete AV block (HCC) (Primary Dx); Presence of permanent cardiac pacemaker; Bacteremia 11/11/2024 2:09 PM EST Anesthesia Event [facility] - Echocardiography Laboratory [address] [place] [phone] Hong Nance MD 11/11/2024 Travel 11/05/2024 1:32 PM EST Anesthesia Event [address] [place] [address] Juaquin Rueda MD Ritchie, Agatha T, PA-C 11/05/2024 1:15 PM EST Anesthesia Event [address] [place] [address] Gaston Martinez MD Calitri, Nicholas, MD 11/05/2024 12:52 PM EST - 11/05/2024 3:28 PM EST Surgery [address] [place] [address] [place] Camejo MD LEFT BELOW KNEE AMPUTATION 11/04/2024 Travel 11/02/2024 6:10 PM EST - 11/25/2024 7:51 PM EST Hospital Encounter [facility] [address] [address] Camejo, [place], MD Adekolu, Olurotimi O, MD Zane, MD Kwasi Smith Kamal, MD Iftikhar, Mian H, MD Singh, Gagan, MD Madhusudana, MD Marli Barney, MD Zack Olivia Mahmoud, MD Acute osteomyelitis of left calcaneus (HCC) (Primary Dx); Pacemaker infection, subsequent encounter; Endocarditis; Acute bacterial conjunctivitis of right eye; Bacteremia Discharge Disposition: Home with Health Care Services 11/02/2024 9:15 AM EST [facility] [address] [address] [place] Camejo MD Acute osteomyelitis of left calcaneus (HCC) (Primary Dx) 11/02/2024 8:55 AM EST Ancillary Procedure [facility] [address] [address] 10/19/2024 10:30 AM EST [facility] [address] [address] [place] Camejo MD Acute osteomyelitis of left calcaneus (HCC) (Primary Dx) 10/19/2024 10:20 AM EST Ancillary Procedure [facility] [address] [address] 10/19/2024 Scanned Document [facility] [address] [address] SurjitAlejandra 10/19/2024 Scanned Document [facility] [address] [address] Alejandra Eddy 10/05/2024 10:45 AM EST Ancillary Procedure [facility] [address] [address] 10/05/2024 10:15 AM EST [facility] [address] [address] Sheila Childs APRN Pain of foot, unspecified laterality (Primary Dx); Acute osteomyelitis of left calcaneus (HCC); Other chronic osteomyelitis of foot, unspecified laterality (HCC) 09/17/2024 [facility] [address] [place] [address] [place] Camejo MD 09/15/2024 11:11 AM EST Anesthesia Event [facility] Perioperative Surgical Services [address] [place] [address] Susan Lundberg DO Gordon, Donald E, PA-C 09/15/2024 9:30 AM EST - 09/15/2024 11:30 AM EST Surgery [facility] Perioperative Surgical Services [address] [place] [address] Delbert Mcintosh MD LEFT LOWER EXTREMITY ANGIOGRAM 09/10/2024 8:01 AM EST - 09/16/2024 3:11 PM [facility] Hospital Encounter [facility] [address] [place] [address] [place] Camejo MD Other chronic osteomyelitis of foot, unspecified laterality (HCC) (Primary Dx) Discharge Disposition: Home with Health Care Services from Last 3 Months Social History Tobacco Use Types Packs/Day Years Used Date Smoking Tobacco: Former Cigarettes 1 29.2 1 977 - 2003 Smokeless Tobacco: Never Tobacco Cessation:Counseling Given: Yes Alcohol Use Standard Drinks/Week Comments Yes 21 (1 standard drink = 0.6 oz pu re alcohol) [facility] Utilities Answer Date Recorded In the past 12 months has [employer], gas, oil, or water [employer] threatened to shut off services in your [...] any time in the past 12 m [facility], were you homeless or living [...] Upcoming Encounters Date Type Department Care Team ([facility] st Contact Info) Description 12/14/2024 2:00 PM EDT Office [place] [address] [place] Camejo MD [address] [place] [address] 12/16/2024 8:30 AM EDT Office Visit [facility] Infectious Disease [address] [place] [address] Ena Mtz MD [address] [place], [place] [phone] 12/22/2024 10:00 AM EDT Appointment [facility] V[facility] [place] [facility] - Echocardiography Laboratory [address] [place] [phone] Ena Mtz MD [address] [place] [address] Health Maintenance Due Date Last Done Comments [...] this topic Medical Devices Implanted Type Area Residence Director Device Identifier Shelf Expiration Date Model / Serial / Lot [id number] Pacemaker Cardiac Micra Av2 Ldls Bndl - [id number] Implanted:Qty : 1 on 11/17/2024 by Rui Pabon MD at [facility] Pacemaker Left: Chest [employer] MINIMALLY INVASIVE T [id number] 02/09/2026 [id number] / [id number] / Explanted Type Area Residence Director Device Identifier Shelf Expiration Date Model / Serial / Lot 5076-52 Lead Pacing 52cm 6.2fr 2mm 10mm Spc Sm Straight Atr Vntrc- 6 Implanted:09/30 (Quantity not on file) Explanted:Qty: 1 on 11/17/2024 by Rui Pabon MD Lead [employer] MINIMALLY INVASIVE T 5076-52 / [id number] / [id number] Lead Pacing 58cm 6.2fr 2mm 10mm Spc Sm Straight Atr Vntrc- 6 Implanted:09/30 (Quantity not on file) Explanted:Qty: 1 on 11/17/2024 by Rui Pabon MD Lead [employer] MINIMALLY INVASIVE T 5076-58 / [id number] / [id number] Pacemaker Cardiac Advisa Dr Lewis Surescan 2 Chamber Digital- [id number] Implanted:09/30 (Quantity not on file) Explanted:Qty: 1 on 11/17/2024 by Rui Pabon MD Pacemaker [employer] MINIMALLY INVASIVE T [id number] / [id number] / Procedures Procedure Name Priority Date/Time Associated Diagnosis Comments PM SINGLE LEAD EVAL WITH PROGRAM,[id number] Routine 12/07/2024 2:14 PM EDT Complete AV block (HCC) Presence of permanent cardiac pacemaker Bacteremia LAB RESULT Routine 12/07/2024 1:08 PM EDT LAB RESULT Routine 12/07/2024 1:06 PM EDT POCT GLUCOSE, FINGERSTICK (CHARGE) Routine 11/25/2024 12:13 [...] AM EST PM SINGLE LEAD EVAL WITH PROGRAM,[id number] Routine 11/18/2024 7:45 AM EST CREATINE KINASE [...] EST PM DUAL LEAD EVAL WITH PROGRAMMING, [id number] Routine 11/12/2024 1:15 PM EST POCT GLUCOSE, [...] EST PM DUAL LEAD EVAL WITH PROGRAMMING, [id number] Routine 11/11/2024 4:33 PM EST ECHOCARDIOGRAM TRANSESOPHAGEAL [...] FINGERSTICK (CHARGE) Routine 09/11/2024 2:04 AM EST HEMOGLOBIN A1C WITH ESTIMATED AVERAGE GLUCOSE Routine [...] Recently Relevant to Health Maintenance Results * PM SINGLE LEAD EVAL WITH PROGRAM,[id number] (12/07/2024 2:14 PM EDT) Date Time Interrogation Session 20,250,311,13 4,009 PACEART Implantable Pulse Generator Residence Director [employer] PACEART Implantable Pulse Generator Model [id number] Micra AV2 PACEART Implantable Pulse Generator Serial Number [id number] PACEART Implantable Pulse Generator Type Pacemaker PACEART Implantable Pulse Generator Implant Date 20,250,218,19 0,000 PACEART Otf Setting Mode (NBG Code) VDD PACEART Otf Setting Lower Rate Limit 60 {beats}/m in PACEART Otf Setting Maximum Tracking Rate 120 {beats}/m in PACEART Tof Setting Maximum Sensor Rate 120 {beats}/m in PACEART Otf Setting JUSTIN Delay Low 20 ms PACEART RV Sensitivity 2.0 mV PACEART RV Pacing Pulse Width 0.24 ms PACEART RV Pacing Amplitude 2.0 V PACEART RA Lead Sensing Intrinsic Amplitude 0.7 m/s? ? ? PACEART RV Lead Pacing Threshold Amplitude 0.38 V PACEART RV Lead Pacing Threshold Pulse Width 0.24 ms PACEART Battery Remaining Longevity >120 mo PACEART Battery Voltage 3.13 V PACEART RV Percent Paced-since last reset 99.93 % PACEART Otf Statistic SCHOOL AGE LEAD TEACHER Percent 99.97 % PACEART Otf Statistic VS Percent 0.03 % PACEART Anatomical Region Laterality Modality Cardiac Device 12/07/2024 1:40 PM EDT Narrative 12/09/2024 11:59 AM EDT OBSERVATIONS: One month s/p Micra AV pacemaker evaluation performed. Patient feeling much better, asymptomatic. Battery longevity >10 years. AV synchrony 41.4%. SCHOOL AGE LEAD TEACHER only 58.5%. Normal pacemaker function. Discussed with Erin Reyna APRN, no changes made. Pacemaker extraction incision C/D/I. PRESENTING RHYTHM: AM-SCHOOL AGE LEAD TEACHER/SCHOOL AGE LEAD TEACHER @ 60 bpm INHIBITED RHYTHM: No ventricular response greater than 40 bpm PATIENT EDUCATION: Ongoing education for: device function, home monitor function, evaluation results. CHANGES MADE THIS SESSION: None RECOMMENDATIONS: Continue routine monitoring by [facility] - Dr. Fields. Sri Pena RN Gretel Hinds APRN CV CARDIAC SERVIC ES ORDERABLES * LAB RESULT (12/07/2024 1:08 PM EDT) Only the most recent of2 resultswithin the time period is included. Negrito Champion MD HX AMB PROCEDU RES * (ABNORMAL) POCT Glucose, Fingerstick (11/25/2024 12:13 PM EST) Only the most recent of132 resultswithin the time period is included. POC [...] APRN POCT ORDERABLES - DEVICE * (ABNORMAL) Complete [...] EST Gianluca Calles MD [place] [address], [place] [address] * (ABNORMAL) Comprehensive Metabolic Panel (AM) (11/24/2024 [...] MD LAB BLOOD ORDERABLES Performing Organization Address City/[facility] [place] [address], [place] [address] * Influenza A/B, RSV, SARS-CoV-2 BALJINDER Multiplex (FLUVID) (11/23/2024 10:45 AM EST) Pathologist [facility] Influenza A Virus Not Detected Not Detected [...] other patient management decisions. 11/23/2024 12:00 PM [facility] Swab, Nasopharyngeal Nasopharyngeal swab / Unknown 11/23/2024 10:45 AM EST 11/23/2024 11:08 AM EST Gianluca Calles MD MICROBIOLOGY - GENER AL ORDERABLES Performing Organization Address [facility] [place] [address], [place] [address] * (ABNORMAL) Erythrocyte Sedimentation Rate (ESR) (11/23/2024 6:43 AM EST) Only the most recent of2 resultswithin the time period is included. Erythrocyte Sediment Rate (ESR) 62(H) <20 MM/HR 11/23/2024 12:07 PM [facility] Blood specimen / Unknown 11/23/2024 6:43 AM EST 11/23/2024 6:49 AM EST Gianluca Calles MD LAB BLOOD ORDERABLES Performing Organization Address City/[facility]/[place] [address], [address] [address] * (ABNORMAL) C-REACTIVE PROTEIN (11/23/2024 6:43 AM EST) Only the most recent of2 resultswithin the time period is included. C-Reactive Protein 4.88(H) 0 - 0.49 mg/dL 11/23/2024 11:53 AM EST [facility] 11/23/2024 6:43 AM EST 11/23/2024 6:49 AM EST Gianluca Calles MD LAB BLOOD ORDERABLES Performing Organization Address City/[facility] [place] [address], [place] [address] * Magnesium (AM) (11/23/2024 6:43 AM EST) Only the most recent of24 resultswithin the time period is included. Magnesium 2.2 1.6 - 2.7 mg/dL 11/23/2024 7:22 AM [facility] Blood Blood specimen / Unknown 11/23/2024 6:43 AM EST 11/23/2024 6:49 AM EST Gianluca Calles MD LAB BLOOD ORDERABLES Performing Organization Address City/[facility] [place] [address], [place] [address] * CREATINE KINASE (CK) (11/23/2024 6:43 AM EST) Only the most recent of5 resultswithin the time period is included. Creatine Kinase (CK) 36 24 - 204 U/L 11/23/2024 11:53 AM [facility] 11/23/2024 6:43 AM EST 11/23/2024 6:49 AM EST Gianluca Calles MD LAB BLOOD ORDERABLES [address] [address], [address] [address] * (ABNORMAL) HEPATIC FUNCTION PANEL (11/23/2024 6:43 AM EST) Only the most recent of4 resultswithin the time period is included. Alkaline [...] EST Gianluca Calles MD LAB BLOOD ORDERABLES [address] [address], [address] [address] * (ABNORMAL) Basic Metabolic Panel (AM) (11/23/2024 6:43 AM EST) Only the most recent of25 resultswithin the time period is included. Glucose [...] 11 7 - 17 11/23/2024 7:22 AM [facility] Calcium 9.0 8.7 - 10.5 mg/dL 11/23/2024 7:22 AM [facility] BUN/Creatinine Ratio 21 10.0 - 25.0 Ratio 11/23/2024 7:22 AM [facility] Blood Blood specimen / Unknown 11/23/2024 6:43 AM EST 11/23/2024 6:49 AM EST Gianluca Calles MD LAB BLOOD ORDERABLES [address] [address], [address] [address] * PM LEADLESS SINGLE-CARDIAC CHAMBER EVAL W/PROGRAM (IN PERSON), [id number] (11/22/2024 2:20 PM EST) Date Time Interrogation Session 20,250,224,13 5,809 PACEART Implantable Pulse Generator Residence Director [employer] PACEART Implantable Pulse Generator Model [id number] Micra AV2 PACEART Implantable Pulse Generator Serial Number [id number] PACEART Implantable Pulse Generator Type Pacemaker PACEART [...] last reset 99.86 % PACEART Otf Statistic SCHOOL AGE LEAD TEACHER Percent 100.00 % PACEART Otf Statistic VS Percent 0 % PACEART Anatomical Region Laterality Modality Other 11/22/2024 1:58 PM EST Narrative 11/28/2024 10:40 AM EST Micra AV leadless Pacemaker evaluation completed on B10E. Per patient request and verbal order from SHUBHAM Pitts: LRL increased from 50 bpm to 60 bpm. Presenting rhythm: AM/SCHOOL AGE LEAD TEACHER @ 62 bpm. Underlying rhythm: CHB. AM/SCHOOL AGE LEAD TEACHER pacing 81%, with total V-pacing 100%. Battery and testing results evaluated and within normal limits. Normal leadless pacemaker function. JOSUE Alvarenga Gianluca Calles MD CV CARDIAC SERVICES ORDERABLES * (ABNORMAL) Urinalysis with Reflex to Microscopic (11/19/2024 4:00 PM EST) Color Yellow 11/19/2024 4:30 PM EST [facility] Clarity Clear 11/19/2024 4:30 PM EST [facility] Specific [place] 1.008 1.003 - 1.030 11/19/2024 4:30 PM EST [facility] pH 6.0 5.0 [...] PM EST Anmol Reynoso [place] [address], [place] [address] * Urea Nitrogen, Urine, Random (11/19/2024 4:00 PM EST) Urea Nitrogen, Random Urine 273 mg/dL 11/19/2024 5:43 PM [facility] Comment:Reference range not established for random specimen. Urine Urine specimen / Unknown 11/19/2024 4:00 PM EST 11/19/2024 4:19 PM EST Anmol Reynoso [place] [address], [place] [address] * SODIUM, URINE, RANDOM (11/19/2024 4:00 PM EST) Sodium, Urine Random 21 mmol/L 11/19/2024 5:43 PM EST [facility] Comment:Reference range not established for random specimen. Urine Urine specimen / Unknown 11/19/2024 4:00 PM EST 11/19/2024 4:19 PM EST Anmol Reynoso MD URINE ORDERABLES Performing Organization Address [facility]/ZIP Co de Phone Number [address] [address], [address] [address] * OSMOLALITY, URINE (11/19/2024 4:00 PM EST) Osmolality, Urine 201 50 - 1,200 mOsm/Kg 11/19/2024 6:20 PM EST [facility] Urine Urine specimen / Unknown 11/19/2024 4:00 PM EST 11/19/2024 4:19 PM EST Anmol Reynoso MD URINE ORDERABLES Performing Organization Address [facility] [place] [address], [address] [address] * CREATININE, URINE, RANDOM (11/19/2024 4:00 PM EST) Creatinine, Urine, Random 31 mg/dL 11/19/2024 5:43 PM EST [facility] Comment:Reference range not established for random specimen. Urine Urine specimen / Unknown 11/19/2024 4:00 PM EST 11/19/2024 4:19 PM EST Anmol Reynoso MD URINE ORDERABLES Performing Organization Address City/[facility] Co de Phone Number [address] [address], [address] [address] * Chloride, Urine, Random (11/19/2024 4:00 PM EST) Chloride, Urine, Random 23 mmol/L 11/19/2024 5:43 PM EST [facility] Comment:Reference range not established for random specimen. Urine Urine specimen / Unknown 11/19/2024 4:00 PM EST 11/19/2024 4:19 PM EST Anmol Reynoso MD URINE ORDERABLES [address] [address], [address] [address] * CVC INSERT (TUNNEL) W/O PORT GREATER [...] table. A preprocedure time-out was performed per [facility] protocol. The right neck and chest was [...] table. A preprocedure time-out was performed per [facility] protocol. The right neck and chest was [...] CIELO * PM SINGLE LEAD EVAL WITH PROGRAM,[id number] (11/18/2024 7:45 AM EST) Date Time Interrogation Session ,250,220,07 3,509 PACEART Implantable Pulse Generator Residence Director [employer] PACEART Implantable Pulse Generator Model [id number] Micra AV2 PACEART Implantable Pulse Generator Serial Number [id number] PACEART Implantable Pulse Generator Type Pacemaker PACEART [...] last reset 92.76 % PACEART Otf Statistic SCHOOL AGE LEAD TEACHER Percent 99.88 % PACEART Otf Statistic VS Percent 0.12 % PACEART Anatomical Region Laterality Modality Other 11/18/2024 7:35 AM EST Narrative 11/19/2024 12:19 PM EST Pacemaker evaluation completed on B10E, device interrogation ordered for post-OP. Presenting rhythm: AM-SCHOOL AGE LEAD TEACHER @ 69 bpm. Underlying rhythm: No ventricular response greater than 40 bpm. AM-SCHOOL AGE LEAD TEACHER @ 84.8%. Battery and device parameters evaluated [...] bilateral upper lobe airspace disease Corbin Lamb CARDIOPULMONARY PHYSICAL THERAPIST IMG DIAGNOSTIC SOCORRO GING ORDERABLES * EXTRACTION [...] femoral venous access was obtained. ??A 12 Micronesian sheath was placed in the right femoral vein. ?? Through this an Amplatz stiff wire was advanced under fluoroscopic visualization to the right IJ. ??Using ultrasound-guided Seldinger technique left femoral venous access was obtained. ??8 Micronesian sheath was placed in left femoral [...] support. ??We then began with a 14 Micronesian laser sheath. ??Under fluoroscopic visualization we started with the right ventricular lead. ?? 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 ??We were able to progress to the innominate area. ??Here we reached the innominate region and had significant fibrosis. ??We then remove the 14 Micronesian laser sheath [...] ventricle positioning on the septum. ??ADAME and TURKMEN position confirmed our placement.We did an initial deployment here. ??Sensing of paced R wave was 12 mV. ??Device impedance was 520 ohms. ??Threshold was initially 1.5 V that decreased to 1.2 V. ??However remained at 1.2 V at 0.24 ms. ??We therefore retrieved the device back into the deploying sheath. ??We then moved the device slightly superior. ??ADAME and TURKMEN position to confirm septal position. ??Initial testing [...] ??Z stitch was placed around the 8 Micronesian [...] Post-procedure: stablization device applied Marlin Miner PA-C IN ANESTHESIA * Phosphorus (AM) (11/17/2024 8:16 AM EST) Only the most recent of17 resultswithin the time period is included. Phosphorus 3.5 2.7 - 4.5 mg/dL 11/17/2024 9:01 AM EST [facility] Blood (Plasma/Serum) 11/17/2024 8:16 AM EST 11/17/2024 8:30 AM EST Maddison Villalpando MD LAB BLOOD ORDERABLES [facility] [address] [place] [address], [facility] [address] [place] [address] * Type and Screen (11/16/2024 7:23 AM EST) Only the most recent of3 resultswithin the time period is included. ABO/Rh A POSITIVE 11/16/2024 8:39 AM [facility] Antibody Screen NEGATIVE 11/16/2024 8:53 AM [facility] Specimen Expiration 11/19/2024 11/16/2024 8:39 AM [facility] Unit Number [id number] 11/16/2024 9:12 AM [facility] Blood Component Type LEUKOREDUCED RED CELLS 11/16/2024 9:12 AM [facility] Unit Division 00 11/16/2024 9:12 AM [facility] Unit Status REL FROM ALLOC 2:05 AM [facility] Transfusion Status OK TO TRANSFUSE 11/16/2024 9:12 AM [facility] Crossmatch Result Electronically Compatible 11/16/2024 9:12 AM [facility] Unit Number [id number] 11/16/2024 9:12 AM [facility] Blood Component Type LEUKOREDUCED RED CELLS 11/16/2024 9:12 AM [facility] Unit Division 00 11/16/2024 9:12 AM [facility] Unit Status REL FROM ALLOC 2:05 AM [facility] Transfusion Status OK TO TRANSFUSE 11/16/2024 9:12 AM [facility] Crossmatch Result Electronically Compatible 11/16/2024 9:12 AM [facility] Unit Number [id number] 11/16/2024 9:12 AM [facility] Blood Component Type LEUKOREDUCED RED CELLS 11/16/2024 9:12 AM [facility] Unit Division 00 11/16/2024 9:12 AM [facility] Unit Status REL FROM ALLOC 2:05 AM [facility] Transfusion Status OK TO TRANSFUSE 11/16/2024 9:12 AM [facility] Crossmatch Result Electronically Compatible 11/16/2024 9:12 AM [facility] Unit Number [id number] 11/16/2024 9:12 AM [facility] Blood Component [...] BANK TEST OR DERABLES Performing Organization Address [facility] Co de Phone [place] [address] * Prepare RBC's:Prepare in: Units; Number of [...] BLOOD BANK PRODUCT ORDERABLES Performing Organization Address City/State/[facility] Co de Phone Number HOSPITAL LAB See Below * (ABNORMAL) proBNP, N-terminal (11/15/2024 8:08 AM EST) Only the most recent of6 resultswithin the time period is included. proBNP, N-terminal 429(H) <125 pg/mL 11/15/2024 9:21 AM EST [facility] Blood Plasma specimen / Unknown 11/15/2024 8:08 AM EST 11/15/2024 8:57 AM EST Valencia Lau CARDIOPULMONARY PHYSICAL THERAPIST LAB BLOOD ORDERAB LES [facility] [address] [place] [address], [facility] [address] [place] [address] * MRI Brain w/o contrast (11/12/2024 1:43 [...] * PM DUAL LEAD EVAL WITH PROGRAMMING, [id number] (11/12/2024 1:15 PM EST) Date Time Interrogation Session [id number] 4,157 PACEART Implantable Pulse Generator Residence Director [employer] PACEART Implantable Pulse Generator Model [id number] Jaime HARP MRI PACEART Implantable Pulse Generator Serial Number [id number] PACEART Implantable Pulse Generator Type Pacemaker PACEART [...] reset 99.97 % PACEART Otf Statistic AP SCHOOL AGE LEAD TEACHER Percent 76.74 % PACEART Otf Statistic SCHOOL AGE LEAD TEACHER Percent 23.23 % PACEART Otf Statistic AP VS Percent 0.01 % PACEART Otf Statistic VS Percent 0.01 % PACEART AT/AF Sieper Percent 0 % PACEART Episode Statistic Recent [...] * PM DUAL LEAD EVAL WITH PROGRAMMING, [id number] (11/11/2024 4:33 PM EST) Date Time Interrogation Session 20,250,213,17 1,358 PACEART Implantable Pulse Generator Residence Director [employer] PACEART Implantable Pulse Generator Model [id number] Jaime LEWIS PACEART Implantable Pulse Generator Serial Number [id number] PACEART Implantable Pulse Generator Type Pacemaker PACEART [...] reset 89.06 % PACEART Otf Statistic AP SCHOOL AGE LEAD TEACHER Percent 62.37 % PACEART Otf Statistic SCHOOL AGE LEAD TEACHER Percent 26.83 % PACEART Otf Statistic AP VS Percent 8.97 % PACEART Otf Statistic VS Percent 1.83 % PACEART AT/AF Sieper Percent 0 % PACEART Episode Statistic Recent [...] ordered for function. Presenting rhythm: AP / SCHOOL AGE LEAD TEACHER @ 60 bpm. Underlying rhythm: SB @ [...] inserted atraumatically into the esophagus by the dancer or choreographer. With the patient in a supine position [...] 0.40(H) <0.09 ng/mL 11/09/2024 11:01 AM EST [facility] Comment: (NOTE) ?Procalcitonin (PCT) Guided [...] PA-C LAB BLOOD ORDERABLES Performing Organization Address [facility]/State/[facility] [place] [address], [place] [address] * INSJ NON-TUNNELED CENTRAL VENOUS CATH AGE [...] to verify the correct patient, procedure, equipment, underwriting support manager and site/side marked as required. Indications: vascular [...] Eunice Garrison APRN LAB BLOOD ORDERA BLES [address] [place] [address], [address] [place] [address] * CT Head w w/o contrast (11/08/2024 [...] [place]ron[place] APRN IMG CT ORDERABLES * (ABNORMAL) High Sensitivity Troponin T (Once) (11/08/2024 12:05 AM EST) Only the most recent of3 resultswithin the time period is included. [facility] High Sensitivity Troponin T 26(H) <23 ng/L 11/08/2024 12:39 AM [facility] Delta (Change) NO CHANGE <3 11/08/2024 12:39 AM [facility] Blood (Plasma/Serum) 11/08/2024 12:05 AM EST 11/08/2024 12:16 AM EST [facility] LAB BLOOD ORDERABLES Performing Organization Address City/State/[facility] [place] [address], [place] [address] * Respiratory PCR Panel (11/07/2024 6:30 PM EST) [facility] Adenovirus Not Detected Not Detected 11/08/2024 12:23 AM [facility] Coronavirus 229E Not Detected Not Detected 11/08/2024 12:23 AM [facility] Coronavirus HKU1 Not Detected Not Detected 11/08/2024 12:23 AM [facility] Coronavirus NL63 Not Detected Not Detected 11/08/2024 12:23 AM [facility] Coronavirus OC43 Not Detected Not Detected 11/08/2024 12:23 AM [facility] Human Metapneumovirus Not Detected Not Detected 11/08/2024 12:23 AM [facility] Rhinovirus/Enterov irus Not Detected Not Detected 11/08/2024 12:23 AM [facility] Influenza A Not Detected Not Detected 11/08/2024 12:23 AM [facility] Influenza B Not Detected Not Detected 11/08/2024 12:23 AM [facility] Parainfluenza 1 (PIV1) Not Detected Not Detected 11/08/2024 12:23 AM [facility] Parainfluenza 2 (PIV2) Not Detected Not Detected 11/08/2024 12:23 AM [facility] Parainfluenza 3 (PIV3) Not Detected Not Detected 11/08/2024 12:23 AM [facility] Parainfluenza 4 (PIV4) Not Detected Not Detected 11/08/2024 12:23 AM [facility] Respiratory Syncytial Virus Not Detected Not Detected 11/08/2024 12:23 AM [facility] Bordetella pertussis Not Detected Not Detected 11/08/2024 12:23 AM [facility] Chlamydophila pneumoniae Not Detected Not Detected 11/08/2024 12:23 AM [facility] Mycoplasma pneumoniae Not Detected Not Detected 11/08/2024 12:23 AM [facility] Bordetella parapertussis Not Detected Not Detected 11/08/2024 12:23 AM [facility] SARS CoV 2 Not Detected Not Detected 11/08/2024 12:23 AM [facility] X-Specimen 24 Nasopharyngeal swab / Unknown 11/07/2024 6:30 PM EST 11/07/2024 8:00 PM EST Kayla Orona APRN MICROBIOLOGY - GENER AL ORDERABLES [facility] [address] [place] [place] [address], * ECG 12 lead (11/07/2024 2:58 PM EST) Only the most recent of3 resultswithin the time period is included. Systolic BP 116 mmHg EKG [facility] Diastolic BP 57 mmHg EKG [facility] Ventricular rate 62 BPM EKG [facility] Atrial rate 55 BPM EKG [facility] QRS duration 168 ms EKG [facility] Q-T interval 506 ms EKG [facility] QTC calculation (Bazett) 513 ms EKG [facility] R axis 104 degrees EKG [facility] T axis -39 degrees EKG [facility] 11/07/2024 2:58 PM EST Narrative EKG [...] PM Dallas Camejo MD ECG ORDERABLES EKG [facility] * BLOOD CULTURE Peripheral (11/07/2024 1:02 PM EST) Only the most recent of8 resultswithin the time period is included. Culture Sterile after 5 days 11/12/2024 7:50 AM EST [facility] Microbiology Peripheral blood specimen / Unknown 11/07/2024 1:02 PM EST 11/07/2024 1:23 PM EST Chris Taylor MD LAB AMB MICRO ORDERA BLES [facility] [address] [place] [address], * (ABNORMAL) Blood Gas, Arterial (STAT) (11/07/2024 12:36 PM EST) pH, Arterial 7.38 7.35 - 7.45 11/07/2024 1:02 PM EST [facility] pCO2, Arterial 36 32 - 45 mmHG 11/07/2024 1:02 PM [facility] pO2, Arterial 119(H) 75 - 95 mmHG 11/07/2024 1:02 PM [facility] CO2, Total 22 22 - 28 mmol/L 11/07/2024 1:02 PM EST [facility] Respiratory Info OTHER 11/07/19 12:36 PM EST Base Deficiency 3.5 mmol/L 1:02 PM [facility] Comment:Reference Range: Neg ative 2 to Positive 3 Blood Blood specimen / Unknown 11/07/2024 12:36 PM EST 11/07/2024 12:50 PM EST Kayla Orona [facility] LAB BLOOD ORDERABLES [address] [address], [address] [address] * (ABNORMAL) Complete Blood Count WITH Differential - Early AM (11/06/2024 4:58 AM EST) Only the most recent of4 resultswithin the time period is included. White [...] [facility] LAB BLOOD ORDERABLES Performing Organization Address City/State/[facility] [place] [address], [place] [address] * ANES LINE - PERIPHERAL, SINGLE LUMEN [...] Patient pre-procedure mental status: anesthetized Single lumen [id number]-[id number] catheter system, 20 g, 1/2 in length, in right hand Insertion attempts: 1 Juaquin Rueda MD IN ANESTHESIA * Block - Lower Extremity (11/05/2024 2:13 PM EST) Juaquin Shafer MD - 11/05/2024 2:13 PM EST Juaquin [...] procedure. Patient tolerated well. Gaston Martinez MD IN ANESTHESIA * Pathology (11/05/2024 2:11 PM EST) Report [facility] [id number] ?? CLIA ID [id number] [address] [place] [address] ??[id number] [phone] Surgical Pathology Report PATIENT NAME: BLAS CROWE [facility] REC NUMBER: [id number] (AGE): 1960 (Age: 63) SPECIMEN NUMBER: [id number] DATE OBTAINED: 11/05/2024 DIAGNOSIS LEFT LOWER EXTREMITY, BELOW KNEE AMPUTATION: ??SEVERE PERIPHERAL ARTERIOSCLEROSIS WITH CALCIFICATION, GANGRENOUS ULCER OF FOOT WITH SEVERE ACUTE OSTEOMYELITIS. NEGATIVE AMPUTATION MARGIN. /11/16/2024 Electronically Signed Out ? SENA SHABAZZ MD COMMENT [id number], [id number] Clinical Information and History: Acute osteomyelitis of [...] other masses or lesions are grossly identified. ??Padding Gluer sections are submitted in A1 - ?? [...] baseline Complications: no complications Juaquin Rueda MD IN ANESTHESIA * Creatine Kinase, Reflex to CKMB (11/05/2024 7:12 AM EST) Creatine Kinase (CK) 49 24 - 204 U/L 11/05/2024 8:18 AM [facility] Blood (Plasma/Serum) 11/05/2024 7:12 AM EST 11/05/2024 7:46 AM EST Chris Taylor MD LAB BLOOD ORDERABLES Performing Organization Address [facility] [place] [address], [place] [address] * (ABNORMAL) PROTIME-INR (11/05/2024 7:12 AM EST) Only the most recent of3 resultswithin the time period is included. [facility] Anticoagulant Information not given 11/05/2024 7:47 AM [...] MD LAB BLOOD ORDERABLES Performing Organization Address [facility] [place] [address], [place] [address] * ECHOCARDIOGRAM COMPREHENSIVE (11/04/2024 9:05 AM EST) [facility] LV velez vol 3D 247.0 mL LV [...] ?Compared to previous outside study report from [facility] on 08/05/2024, Mitral and tricuspid regurgitation were [...] Compared to previous outside study report from [facility] on 08/05/2024, Mitral and tricuspid regurgitation were not previously reported. Ena Mtz MD CV ECHO ORDERABL ES * MRSA PCR Screen, Qualitative (11/03/2024 3:24 AM EST) MRSA Result Not Detected Not Detected 5 7:00 AM EST [facility] Comment:Performed by the Xpe rt MRSA NxG Assay X-Specimen 12 Specimen from nose / Unknown 11/03/2024 3:24 AM EST 11/03/2024 5:23 AM EST Kenzie [facility]TON MICROBIOLOGY - GENE RAL ORDERABLES [address] [address], [address] [address] * (ABNORMAL) Blood Culture ID PCR Panel (11/02/2024 8:00 PM EST) [facility] BC ID PCR Result Summary Enterococcus faecalis Vancomycin resistance gene detected by molecular method. Please refer to detailed susceptibility results when available and suggest consultation with Infectious Diseases for management. 11/03/2024 6:06 PM [facility] BC ID PCR Result Summary Enterococcus faecium Vancomycin resistance gene detected by molecular method. Please refer to detailed susceptibility results when available and suggest consultation with Infectious Diseases for management. 11/03/2024 6:06 PM [facility] BC ID PCR Result Summary Methicillin Resistant Staph aureus (MRSA) 11/03/2024 6:06 PM [facility] Methicillin resistance gene mecA/C Detected(A) 11/03/2024 6:06 PM [facility] Vancomycin resistance genes Eugenia/B Detected(A) 11/03/2024 6:06 PM [facility] Enterococcus faecalis Detected(A) 11/03/2024 6:06 PM [facility] Enterococcus faecium Detected(A) 11/03/2024 6:06 PM [facility] Listeria monocytogenes Not Detected 11/03/2024 6:06 PM [facility] Staphylococcus Detected(A) 6:06 PM [facility] Staphylococcus aureus Detected(A) 11/03/2024 6:06 PM [facility] Staphylococcus epidermidis Not Detected 11/03/2024 6:06 PM [facility] Staphylococcus lugdunensis Not Detected 11/03/2024 6:06 PM [facility] Streptococcus Not Detected 6:06 PM [facility] Streptococcus agalactiae Not Detected 11/03/2024 6:06 PM [facility] Streptococcus pneumoniae Not Detected 11/03/2024 6:06 PM [facility] Streptococcus pyogenes Not Detected 11/03/2024 6:06 PM [facility] Acinetobacter calcoaceticus-bauma nnii complex Not Detected 11/03/2024 6:06 PM [facility] Bacteroides fragilis Not Detected 11/03/2024 6:06 PM [facility] Enterobacterales Not Detected 2024 6:06 PM [facility] Enterobacter cloacae complex Not Detected 11/03/2024 6:06 PM [facility] Escherichia coli Not Detected 2024 6:06 PM [facility] Klebsiella aerogenes Not Detected 11/03/2024 6:06 PM [facility] Klebsiella oxytoca Not Detected 01/2025 6:06 PM [facility] Klebsiella pneumoniae group Not Detected 11/03/2024 6:06 PM [facility] Proteus Not Detected 11/03/2024 6:06 PM [facility] Salmonella Not Detected 11/03/2024 6:06 PM [facility] Serratia marcescens Not Detected 01/2025 6:06 PM [facility] Haemophilus influenza Not Detected 11/03/2024 6:06 PM [facility] Neisseria meningitidis Not Detected 11/03/2024 6:06 PM [facility] Pseudomonas aeruginosa Not Detected 11/03/2024 6:06 PM [facility] Stenotrophomonas maltophilia Not Detected 11/03/2024 6:06 PM [facility] Fernanda albicans Not Detected 2024 6:06 PM [facility] Fernanda auris Not Detected 6:06 PM [facility] Fernanda glabrata Not Detected 2024 6:06 PM [facility] Fernanda krusei Not Detected 11/03/19 6:06 PM [facility] Fernanda parapsilosis Not Detected 11/03/2024 6:06 PM [facility] Cryptococcus neoformans/gattii Not Detected 11/03/2024 6:06 PM [facility] PCR ID Comment Antimicrobial resistance can occur via multiple mechanisms. A Not Detected result for antimicrobial resistance gene(s) does not indicate antimicrobial susceptibility. Subculturing is required for species identification and susceptibility testing of isolates. 11/03/2024 6:06 PM EST [facility] 11/02/2024 8:00 PM EST 11/02/2024 8:29 PM EST Kenzie PATTON MICROBIOLOGY - GENE RAL ORDERABLES [facility] [address] * Vitamin D, 25-Hydroxy (11/02/2024 8:00 PM EST) Vitamin D, 25-Hydroxy 50 30 - 100 ng/mL 11/02/2024 9:10 PM EST [facility] Blood (Plasma/Serum) 11/02/2024 8:00 PM EST 11/02/2024 8:23 PM EST Kenzie [facility] LAB BLOOD ORDERABLE S Performing Organization Address [facility] [place] [address], [place] [address] * (ABNORMAL) TRANSFERRIN (11/02/2024 8:00 PM EST) Transferrin 178(L) 200 - 360 mg/dL 11/03/2024 12:04 AM EST [facility] Blood (Plasma/Serum) 11/02/2024 8:00 PM EST 11/02/2024 8:22 PM EST Kenzie PATTON LAB BLOOD ORDERABLE S Performing Organization Address City/[facility] [place] [address], [place] [address] * (ABNORMAL) Prealbumin (11/02/2024 8:00 PM EST) Prealbumin 7(L) 20 - 40 mg/dL 11/03/2024 12:04 AM EST [facility] Blood (Plasma/Serum) 11/02/2024 8:00 PM EST 11/02/2024 8:22 PM EST Kenzie PATTON LAB BLOOD ORDERABLE S Performing Organization Address City/[facility]/[place] [address], [place] [address] * (ABNORMAL) Albumin (11/02/2024 8:00 PM EST) Albumin 3.2(L) 3.4 - 4.8 g/dL 11/03/2024 12:04 AM EST [facility] Blood (Plasma/Serum) 11/02/2024 8:00 PM EST 11/02/2024 8:22 PM EST Kenzie PATTON LAB BLOOD ORDERABLE S Performing Organization Address [facility] [place] [address], [place] [address] * XR Foot 1 view-Left (11/02/2024 9:13 AM EST) Only the most recent of3 resultswithin the time period is included. Narrative OAH - 11/02/2024 9:13 AM EST This exam was performed in office at [facility] and images reviewed by orthopedic provider. ??Any findings are documented within ambulatory encounter note on date of service. Dallas Camejo MD IMG DIAGNOSTIC IMAGI NG ORDERABLES Performing Organization Address City/[facility] Co de Phone Number OA * Heparin Assay (Anti Xa) (09/16/2024 9:00 AM EST) Only the most recent of8 resultswithin the time period is included. Anti Xa Blood/anticoagula nt ratio of specimen is unsatisfactory for testing, please repeat. IU/mL 09/16/2024 9:56 AM EST [facility] Anticoagulant IV HEPARIN, UNFRACTIONATED 09/16/2024 8:48 AM EST Blood Plasma specimen / Unknown 09/16/2024 9:00 AM EST 09/16/2024 9:25 AM EST Dallas Camejo MD LAB BLOOD ORDERABLES Performing Organization Address [facility] [place] [address], [place] [address] * Lactate (09/16/2024 8:47 AM EST) Lactic Acid 1.4 0.5 - 1.9 mmol/L 09/16/2024 10:01 AM EST [facility] Blood Plasma specimen / Unknown 09/16/2024 8:47 AM EST 09/16/2024 9:27 AM EST Valentine Rosado PA-C LAB BLOOD ORDERABLE S Performing Organization Address [facility] [place] [address], [place] [address] * AORTOGRAM- ABDOMINAL (09/15/2024 12:06 PM EST) [...] - 36 seconds 09/13/2024 4:18 PM EST [facility] Blood Plasma specimen / Unknown 09/13/2024 3:46 PM EST 09/13/2024 4:00 PM EST Alice Dobbins PA-C LAB BLOOD ORDERABLES [facility] [address] [place] [address], [facility] [address] [place] [address] * Vas Arterial Duplex Leg-Limited Bilateral (09/13/2024 1:40 PM EST) Anatomical Region Laterality Modality Ultrasound 09/13/2024 11:3 0 AM EST Narrative 09/13/2024 1:54 PM EST Table formatting from the original result was not included. ?? Department: [facility] Patient: [id number] (BLAS CROWE) ?? Patient Location: [place] [address] CPT Code: 02732 ICD-9: ?? Referring Physician: NOE Jorge Duplex [...] ??Right ??Left ?? 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 Electronically Signed by: Delbert Mcintosh MD on 2024-09-13 01:54:51 PM End of Report Procedure Note Delbert Mcintosh MD - 09/13/2024 Department: [facility] Patient: [id number] (BLAS CROWE) Patient Location: [place] [address] CPT Code: 99947 ICD-9: Referring Physician: NOE Jorge Duplex scan [...] Segment Right Left PSV Impression PSV Impression STRIP MACHINE TENDER 100 Normal 95 Normal PFA Prox 104 [...] original result was not included. ?? Department: [facility] Patient: [id number] (BLAS CROWE) ?? Patient Location: [place] [address] CPT Code: 16754 ICD-9: ?? Referring Physician: NOE Jorge Right [...] Note Delbert Mcintosh MD - 09/13/2024 Department: [facility] Patient: [id number] (BLAS CROWE) Patient Location: [place] [address] CPT Code: 32832 ICD-9: Referring Physician: NOE Jorge Right lower [...] Stephens PA-C VASCULAR LAB ORDERAB LES * (ABNORMAL) Hemoglobin A1c with Estimated Average Glucose (09/03/2024 2:40 PM EST) Hemoglobin A1C 8.7(H) <5.7 % 09/03/2024 7:00 PM EST [facility] Comment: A1c% ? Interpretation 5.7 - 6.0 ?Increase risk of diabetes 6.1 - 6.4 ?Higher risk of diabetes > or = 6.5 ?? Consistent with diabetes Diabetes Care, 33(Supp 1):S1-S61, 2010 Estimated Average Glucose 203 mg/dL 09/03/2024 7:00 PM EST [facility] Blood Blood specimen / Unknown 09/03/2024 2:40 PM EST 09/03/2024 5:55 PM EST Gilda Collier CARDIOPULMONARY PHYSICAL THERAPIST LAB BLOOD ORDERABLES HOSPITAL LAB See Below [facility] HISTOCOMPATABILITY LAB [address], [place] from Last 3 Months or Most Recently Relevant to Health Maintenance Advance Directives Documents on File Type Date Recorded Patient Padding Gluer Expl anation Advance Directive-Scan 11/10/2024 Revoc ation of Health Care Proxy 11/10/24 Advance Directive-Scan 11/10/2024 Healt h Care Proxy [facility] 11/10/24 * Full Code (Latest Code Status [...] Healthcare Agent Relationship Communication Blas(SON) [facility] new accounts representative 1. Health Care Padding Gluer [facility] new accounts representative 1. Health Care Padding Gluer Care Teams Director Funds Development Relationship Specialty Start Date End Date Lee Fabian MD PCP - General Internal Medicine 09/02/24 Vitaliy Fields MD [address] [address] Cardiovascular Disease 09/02/24 Dallas Camejo MD [address] [place] [address] Surgery, Orthopedic 09/02/24 Rolando Lopez MD [address] Transplant - [address] [place] [address] Physician Nephrology 09/02/24 Cesar Fair MD [address] [id number] Surgery, Cardiac 11/08/24 Daisy Her, PT [address] [phone] Prism MeasurerReversal Print Inspector Medicine and Rehabilitation 11/18/24
--- OUTSIDE RECORDS SUMMARY | 2024-12-10 15:19 | XMS_ITS | Encounter Summary ---
Author Organization [facility] Address [address] [place] [address] Care Team Providers Care Workplace Trainer And Assessor Name Role Phone Jarrett Merlos MD Primary Care Provider Unavail able Lee Fabian MD Primary Care Provider [phone] Encounter Details Date Type Department Care Team Description 08/29/2017 [facility] Medical Records [address] [place] [address] Omega Tolbert Social History Tobacco Use Types Packs/Day Years [...] on filedocumented in this encounter Care Teams Workplace Trainer And Assessor Relationship Specialty Start Date End Date Jarrett Merlos MD PCP - General 06/08/01 03/22/20 Lee Fabian MD [address] [place] [address] PCP - General Internal Medicine 03/23/20 documented as of this encounter
--- OUTSIDE RECORDS SUMMARY | 2024-12-10 15:19 | XMS_ITS | Encounter Summary ---
Author Organization [facility] Address [address] [place] [address] Care Team Providers Care Patient Monitor Name Role Phone Jarrett Merlos MD Primary Care Provider Unavail able Lee Fabian MD Primary Care Provider [phone] Encounter Details Date Type Department Care Team Description 08/27/2017 [facility] Medical Records [address] [place] [address] Charles Onofre Social History Tobacco Use Types Packs/Day Years [...] on filedocumented in this encounter Care Teams Patient Monitor Relationship Specialty Start Date End Date Jarrett Merlos MD PCP - General 06/08/01 03/22/20 Lee Fabian MD [address] [place] [address] PCP - General Internal Medicine 03/23/20 documented as of this encounter
--- OUTSIDE RECORDS SUMMARY | 2024-12-10 15:19 | XMS_ITS | Encounter Summary ---
Author Organization [facility] Address [address] [place] [address] Care Team Providers Care Stakes Player Name Role Phone Jarrett Merlos MD Primary Care Provider Unavail able Lee Fabian MD Primary Care Provider [phone] Encounter Details Date Type Department Care Team Description 11/27/2015 Ed Educational Aide Report Medical Records [address] [place] [address] Nishant Jane MD [address] [place] [address] Social History Tobacco Use Types Packs/Day Years [...] on filedocumented in this encounter Care Teams Stakes Player Relationship Specialty Start Date End Date Jarrett Merlos MD PCP - General 06/08/01 03/22/20 Lee Fabian MD [address] [place] [address] PCP - General Internal Medicine 03/23/20 documented as of this encounter
--- OUTSIDE RECORDS SUMMARY | 2024-12-10 15:19 | XMS_ITS | Encounter Summary ---
Author Organization [facility] Address [address] [place] [address] Care Team Providers Care Acute Care Nurse Practitioner Name Role Phone Jarrett Merlos MD Primary Care Provider Unavail able Lee Fabian MD Primary Care Provider [phone] Encounter Details Date Type Department Care Team Description 11/27/2015 Incoming Correspondence Medical Records [address] [place] [address] Social History Tobacco Use Types Packs/Day Years [...] on filedocumented in this encounter Care Teams Acute Care Nurse Practitioner Relationship Specialty Start Date End Date Jarrett Merlos MD PCP - General 06/08/01 03/22/20 Lee Fabian MD [address] [place] [address] PCP - General Internal Medicine 03/23/20 documented as of this encounter
--- OUTSIDE RECORDS SUMMARY | 2024-12-10 15:19 | XMS_ITS | Encounter Summary ---
Author Organization [facility] Address [address] [place] [address] Care Team Providers Care Wood Engraver Name Role Phone Jarrett Merlos MD Primary Care Provider Unavail able Lee Fabian MD Primary Care Provider [phone] Encounter Details Date Type Department Care Team Description 2014 Pusher Operator Report Medical Records [address] [place] [address] Nishant Jane MD [address] [place] [address] Social History Tobacco Use Types Packs/Day Years [...] on filedocumented in this encounter Care Teams Wood Engraver Relationship Specialty Start Date End Date Jarrett Merlos MD PCP - General 06/08/01 03/22/20 Lee Fabian MD [address] [place] [address] PCP - General Internal Medicine 03/23/20 documented as of this encounter
--- OUTSIDE RECORDS SUMMARY | 2024-12-10 15:19 | XMS_ITS | Encounter Summary ---
Author Organization [facility] Address [address] [place] [address] Care Team Providers Care Pump Room Operator Name Role Phone Jarrett Merlos MD Primary Care Provider Unavail able Lee Fabian MD Primary Care Provider [phone] Encounter Details Date Type Department Care Team Description 09/05/2017 Home Health Certification Medical Records [address] [place] [address] Abstract, Provider Social History Tobacco Use Types [...] on filedocumented in this encounter Care Teams Pump Room Operator Relationship Specialty Start Date End Date Jarrett Merlos MD PCP - General 06/08/01 03/22/20 Lee Fabian MD [address] [place] [address] PCP - General Internal Medicine 03/23/20 documented as of this encounter
--- OUTSIDE RECORDS SUMMARY | 2024-12-10 15:19 | XMS_ITS | Encounter Summary ---
Author Organization [facility] Address [address] [place] [address] Care Team Providers Care Broker Agricultural Produce Name Role Phone Lee Fabian MD Primary Care Provider Unavail able Vitaliy Fields MD Unavailable [phone] Dallas Camejo MD Unavailable [phone] Rolando Lopez MD Unavailable [phone] Cesar Fair MD Unavailable [phone] Daisy Her PT Unavailable [phone] Encounter Details Date Type Department Care Team (Late st Contact Info) Description 10/19/2024 Scanned Document [facility] [address] [place] [address] [address] Social History Tobacco Use Types Packs/Day Years Used Date Smoking Tobacco: Former Cigarettes 1 29.2 1 977 - 2004 Smokeless Tobacco: Never Alcohol Use Standard Drinks/Week Comments Yes 21 (1 standard drink = 0.6 oz pu re alcohol) [facility] Utilities Answer Date Recorded In the past 12 months has [email or web address]), gas, oil, or water company threatened to [...] any time in the past 12 m [facility], were you homeless or living in a fci (including now)? No 09/10/2024 Sex and Gender Information Value Date Recorded Sex Assigned at Male 09/03/2024 12:21 PM EST Gender Identity Male 09/03/2024 12:21 PM EST Sexual Orientation Heterosexual (straight) 09/10 7:58 AM EST documented as of this encounter Plan of Treatment Upcoming Encounters Date Type Department Care Team (Late st Contact Info) Description 12/14/2024 2:00 PM EDT Office [place] [address] Dallas Camejo MD [address] [place] [address] 12/16/2024 8:30 AM EDT Office Visit [facility] Infectious Disease [address] [place] [phone] Ean Mtz MD [address] [place], [place] [phone] 12/22/2024 10:00 AM EDT Appointment [facility] Heart & Vascular [place] at [facility] - Echocardiography Laboratory [address] [place] [address] Ena Mtz MD [address] [place] [address] documented as of this encounter Visit Diagnoses Not on filedocumented in this encounter 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/10/24 09/16/2024 09/16/2024 11/24/2024 3:08 P M EST R/O Respiratory Disease 11/07/2024 11/07/202410/30 7:06 AM EST R/O Respiratory Disease 11/23/2024 11/23/202410/31 12:00 PM EST documented as of this encounter Care Teams Broker Agricultural Produce Relationship Specialty Start Date End Date Lee Fabian MD PCP - General Internal Medicine 09/02/24 Vitaliy Fields MD [address] [address] Cardiovascular Disease 09/02/24 Dallas Camejo MD [address] [place] [address] Surgery, Orthopedic 09/02/24 Rolando Lopez MD [address] Transplant - 14 [place] [address] Physician Nephrology 09/02/24 Cesar Fair MD [address] [address] Surgery, Cardiac 11/08/24 Daisy Her, PT 85 [facility] [address] [place] [address] Occupational Medicine SpecialistConsultant Teacher Medicine and Rehabilitation 11/18/24 documented as of this encounter
--- OUTSIDE RECORDS SUMMARY | 2024-12-10 15:19 | XMS_ITS | Encounter Summary ---
Author Organization [facility] Address [address] [place] [address] Care Team Providers Care Flavor Tank Tender Name Role Phone Lee Fabian MD Primary Care Provider Unavail able Vitaliy Fields MD Unavailable [phone] Dallas Camejo MD Unavailable [phone] Rolando Lopez MD Unavailable Cesar Fair MD Unavailable Daisy Her PT Unavailable [phone] Reason for Visit * Reason Comments Call Patient Encounter Details Date Type Department Care Team ([facility] st Contact Info) Description 11/23/2024 Telephone [facility] Infectious Disease [address] [place] [address] Nilton Zepeda MA [address] [phone] Call Patient Social History Tobacco Use Types Packs/Day Years Used Date Smoking Tobacco: Former Cigarettes 1 29.2 1 977 - 2003 Smokeless Tobacco: Never Alcohol Use Standard Drinks/Week Comments Yes 21 (1 standard drink = 0.6 oz pu re alcohol) [facility] Utilities Answer Date Recorded In the past 12 months has [employer], gas, oil, or water [employer] threatened to shut off services in your [...] any time in the past 12 m [facility], were you homeless or living in a [...] EST Reviewed chart, pt currently admitted to [address] with plans for repeat TATIANNA end [...] PM EDT Office [facility] [place] [address] Dallas Camejo MD [address] [place] [address] 12/16/2024 8:30 AM EDT Office Visit [facility] Infectious Disease [address] [place] [address] Ena Mtz MD [address] [place] [address] 12/22/2024 10:00 AM EDT Appointment [facility] Heart & Vascular [place] at [facility] - Echocardiography Laboratory [address] [place] [phone] Ena Mtz MD [address] [place] [phone] documented as of this encounter Visit Diagnoses Not on filedocumented in this encounter 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/10/24 09/16/2024 09/16/2024 11/24/2024 3:08 P M EST R/O Respiratory Disease 11/23/2024 11/23/2024 02/01/2025 12:00 PM EST documented as of this encounter Care Teams Flavor Tank Tender Relationship Specialty Start Date End Date Lee Fabian MD PCP - General Internal Medicine 09/02/24 Vitaliy Fields MD [address] [address] Cardiovascular Disease 09/02/24 Dallas Camejo MD 7 [place] [address] Surgery, Orthopedic 09/02/24 Rolando Lopez MD [address] Transplant - Ph 14 [place] [address] Physician Nephrology 09/02/24 Cesar Fair MD [address] [phone] Surgery, Cardiac 11/08/24 Daisy Her, PT 85 [facility] [address] [place] [address] Photograph EnlargerElectrician Shop Medicine and Rehabilitation 11/18/24 documented as of this encounter
--- OUTSIDE RECORDS SUMMARY | 2024-12-10 15:19 | XMS_ITS | Encounter Summary ---
Author Organization [facility] Address [address] [place] [address] Care Team Providers Care Panel Installer Name Role Phone Lee Fabian MD Primary Care Provider Unavail able Vitaliy Fields MD Unavailable [phone] Dallas Camejo MD Unavailable [phone] Rolando Lopez MD Unavailable [phone] Cesar Fair MD Unavailable [phone] Daisy Her PT Unavailable [phone] Encounter Details Date Type Department Care Team (Late st Contact Info) Description 10/19/2024 Scanned Document [facility] [address] [place] [address] [address] Social History Tobacco Use Types Packs/Day Years Used Date Smoking Tobacco: Former Cigarettes 1 29.2 1 977 - 2004 Smokeless Tobacco: Never Alcohol Use Standard Drinks/Week Comments Yes 21 (1 standard drink = 0.6 oz pu re alcohol) [facility] Utilities Answer Date Recorded In the past 12 months has [employer], gas, oil, or water company threatened to [...] any time in the past 12 m [facility], were you homeless or living [...] 2:00 PM EDT Office [place] [address] Dallas Camejo MD [address] [place] [address] 12/16/2024 8:30 AM EDT Office Visit [facility] Infectious Disease [address] [place] [phone] Ena Mtz MD 132 [place], [place] [phone] 12/22/2024 10:00 AM EDT Appointment [facility] Heart & Vascular [place] at [facility] - Echocardiography Laboratory [address] [place] [address] Ena Mtz MD [address] [place] [address] documented as of this encounter Visit Diagnoses Not on filedocumented in this encounter 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/10/24 09/16/2024 09/16/2024 11/24/2024 3:08 P M EST R/O Respiratory Disease 11/07/2024 11/07/202410/30 7:06 AM EST R/O Respiratory Disease 11/23/2024 11/23/202410/31 12:00 PM EST documented as of this encounter Care Teams Panel Installer Relationship Specialty Start Date End Date Lee Fabian MD PCP - General Internal Medicine 09/02/24 Vitaliy Fields MD [address] [address] Cardiovascular Disease 09/02/24 Dallas Camejo MD [address] [place] [address] Surgery, Orthopedic 09/02/24 Rolando Lopez MD [address] Transplant - 14 [place] [address] Physician Nephrology 09/02/24 Cesar Fair MD [address] [address] Surgery, Cardiac 11/08/24 Daisy Her, PT 85 [facility] [address] [place] [address] Draw Furnace Tender7Th Grade Teacher Medicine and Rehabilitation 11/18/24 documented as of this encounter
--- OUTSIDE RECORDS SUMMARY | 2024-12-10 15:19 | XMS_ITS | Encounter Summary ---
Author Organization [facility] Address [address] [place] [address] Care Team Providers Care Crossing Tender Name Role Phone Jarrett Merlos MD Primary Care Provider Unavail able Lee Fabian MD Primary Care Provider [phone] Encounter Details Date Type Department Care Team Description 11/03/2014 Hospital Medical Records [address] [place] [address] Charles Belle MD [address] [place] [address] Social History Tobacco Use Types Packs/Day Years [...] on filedocumented in this encounter Care Teams Crossing Tender Relationship Specialty Start Date End Date Jarrett Merlos MD PCP - General 06/08/01 03/22/20 Lee Fabian MD [address] [place] [address] PCP - General Internal Medicine 03/23/20 documented as of this encounter
--- OUTSIDE RECORDS SUMMARY | 2024-12-10 15:19 | XMS_ITS | Encounter Summary ---
Author Organization [facility] Address [address] [place] [address] Care Team Providers Care Tamale Maker Name Role Phone Lee Fabian MD Primary Care Provider [phone] Reason for Visit * Reason Onset Date Comments glucose 12/03/2024 Call from Lillian woodall from [facility] Critial lab Encounter Details Date Type Department Care Team (Late st Contact Info) Description 12/03/2024 Telephone Internal Medicine - [facility] [address] [facility] [place] [address] Sara Valero RN glucose (Call from Charles from [facility] Critial lab) Social History Tobacco Use Types Packs/Day Years [...] documented in this encounter Progress Notes * Nghia Vazquez MD - 12/03/2024 5:12 PM EST I called and spoke to the patient. He states that he had eaten something when he had checked his blood sugar. He has a tatum sensor on him. His blood sugar currently was 79. He states that he is asymptomatic. He denies any nausea, vomiting, abdominal pain. He is in the process of having supper. FYI to PCP. * Sara Valero RN - 12/03/2024 5:00 PM EST Critical Lab from [facility] Glucose 353 documented in this encounter Plan of Treatment [...] needed related to ulceration/compr omised skin integrity. Suasn Allison RN documented as of this encounter [...] documented as of this encounter Care Teams Tamale Maker Relationship Specialty Start Date End Date Lee Fabian MD [address] [place] [address] PCP - General Internal Medicine 08/03/24 documented as of this encounter
--- OUTSIDE RECORDS SUMMARY | 2024-12-10 15:21 | XMS_ITS | Encounter Summary ---
Author Organization [facility] Address [address] [place] [address] Care Team Providers Care Twister Tender Name Role Phone Lee Fabian MD Primary Care Provider Unavail able Vitaliy Fields MD Unavailable Dallas Camejo MD Unavailable [phone] Rolando Lopez MD Unavailable [phone] Cesar Fair MD Unavailable Daisy Her PT Unavailable Encounter Details Date Type Department Care Team (Late st Contact Info) Description 12/01/2024 Documentation [facility] Physical Medicine and Rehab [address] [address] Daisy Her, PT [address] [phone] Social History Tobacco Use Types Packs/Day Years Used Date Smoking Tobacco: Former Cigarettes 1 29.2 1 977 - 2004 Smokeless Tobacco: Never Alcohol Use Standard Drinks/Week Comments Yes 21 (1 standard drink = 0.6 oz pu re alcohol) [facility] Utilities Answer Date Recorded In the past 12 months has [employer], gas, oil, or water company threatened to [...] any time in the past 12 m [facility], were you homeless or [...] assessment of RODOLFO to home 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 They report home [...] taking over his care and orders for Pipe Setter and rehabilitation and to reach out to [...] continue to communicate with Laura King from [facility] for any additional PMR needs or support. I will cancel his 12/15 prosthetic clinic appt today. documented in this encounter Plan of Treatment Upcoming Encounters Date Type Department Care Team (Late st Contact Info) Description 12/14/2024 2:00 PM EDT [facility] Visit [facility] [address] [address] Dallas Camejo MD [address] [place] [address] 12/16/2024 8:30 AM EDT Office Visit [facility] Infectious Disease [address] [place] [phone] Ena Mtz MD [address] [place] [address] 12/22/2024 10:00 AM EDT Appointment [facility] Heart & Vascular [place] at [facility] - Echocardiography Laboratory [address] [place] [address] Ena Mtz MD [address] [place] [address] documented as of this encounter Visit Diagnoses Not on filedocumented in this encounter Care Teams Twister Tender Relationship Specialty Start Date End Date Lee Fabian MD PCP - General Internal Medicine 09/02/24 Vitaliy Fields MD [address] [address] Cardiovascular Disease 09/02/24 Dallas Camejo MD [address] [place] [address] Surgery, Orthopedic 09/02/24 Rolando Lopez MD [address] Transplant - 14 [place] [address] Physician Nephrology 09/02/24 Cesar Fair MD [address] [phone] Surgery, Cardiac 11/08/24 Daisy Her, PT [address] [address] School Bus AideMetallurgical Laboratory Assistant Medicine and Rehabilitation 11/18/24 documented as of this encounter
--- OUTSIDE RECORDS SUMMARY | 2024-12-10 15:21 | XMS_ITS | Encounter Summary ---
Author Organization [facility] Address [address] [place] [address] Care Team Providers Care Field Marketing Coordinator Name Role Phone Lee Fabian MD Primary Care Provider Unavail able Vitaliy Fields MD Unavailable Dallas Camejo MD Unavailable Rolando Lopez MD Unavailable Cesar Fair MD Unavailable [phone] Daisy Her PT Unavailable Encounter Details Date Type Department Care Team (Late st Contact Info) Description 11/18/2024 Orders Only [facility] Heart & Vascular [place] at [facility] - Electrophysiology Laboratory [address] [place] [address] Lucho Ceron MD [address] [place] [address] Social History Tobacco Use Types Packs/Day Years Used Date Smoking Tobacco: Former Cigarettes 1 29.2 1 977 - 2004 Smokeless Tobacco: Never Alcohol Use Standard Drinks/Week Comments Yes 21 (1 standard drink = 0.6 oz pu re alcohol) [facility] Utilities Answer Date Recorded In the past 12 months has [employer], gas, oil, or water company threatened to [...] time in the past 12 m [facility], were you homeless or living in a [...] PM EDT Office [place] [facility] [address] Dallas Camejo MD 7 [place] [address] 12/16/2024 8:30 AM EDT Office Visit [facility] Infectious Disease [address] [place] [address] Ena Mtz MD 132 [place], [place] [phone] 12/22/2024 10:00 AM EDT Appointment [facility] Heart & Vascular [place] at [facility] - Echocardiography Laboratory [address] [place] [address] Ena Mtz MD [address] [place] [phone] documented as of this encounter Visit Diagnoses Not on filedocumented in this encounter 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/10/24 09/16/2024 09/16/2024 11/24/2024 3:08 P M EST R/O Respiratory Disease 11/23/2024 11/23/202410/31 12:00 PM EST documented as of this encounter Care Teams Field Marketing Coordinator Relationship Specialty Start Date End Date Lee Fabian MD PCP - General Internal Medicine 09/02/24 Vitaliy Fields MD [address] [address] Cardiovascular Disease 09/02/24 Dallas Camejo MD 7 [place] [address] Surgery, Orthopedic 09/02/24 Rolando Lopez MD [address] Transplant - 14 [place] [address] Physician Nephrology 09/02/24 Cesar Fair MD [address] [address] Surgery, Cardiac 11/08/24 Daisy Her, PT [address] [address] Pattern RulerPatient Accounts Manager Medicine and Rehabilitation 11/18/24 documented as of this encounter
--- OUTSIDE RECORDS SUMMARY | 2024-12-10 15:21 | XMS_ITS | Encounter Summary ---
Author Organization [facility] Address [address] [place] [address] Care Team Providers Care Research Dietitian Name Role Phone Lee Fabian MD Primary Care Provider Unavail able Vitaliy Fields MD Unavailable Dallas Camejo MD Unavailable [phone] Rolando Lopez MD Unavailable Cesar Fair MD Unavailable [phone] Daisy Her PT Unavailable [phone] Reason for Visit * Auth/Cert Specialty Diagnoses / Procedures Referred By Contac t Referred To Contact Diagnoses left ankle infection Procedures N/A Referral ID Status Reason Start Date Expiration Date Visits Re quested Visits Authorized [id number] 1 1 Encounter Details Date Type Department Care Team (Late st Contact Info) Description 11/19/2024 1:30 PM EST - 11/19/2024 2:30 PM EST Surgery [facility] Radiology [address] [place] [id number] Devon Vogt DO [address] [facility] [place] [address] CVC INSERT (TUNNEL)W/O PORT > 5 YRS Social History Tobacco Use Types Packs/Day Years Used Date Smoking Tobacco: Former Cigarettes 1 29.2 1 977 - 2004 Smokeless Tobacco: Never Alcohol Use Standard Drinks/Week Comments Yes 21 (1 standard drink = 0.6 oz pu re alcohol) [facility] Utilities Answer Date Recorded In the [...] in the past 12 m [facility], were you homeless or living [...] MD (Surgery, Cardiac) Daisy Her PT as [place] (Physical Medicine and Rehabilitation) PRIMARY DISCHARGE DIAGNOSIS [...] Continuous Glucose Sensor (FreeStyle Wallace 3 Sensor) [facility] INJECT 1 DEVICE INTO THE SKIN EVERY [...] Routine Referral Type: Home Health Referral Location: [facility] [...] Department Center 12/07/2024 1:30 PM ROOM, ICD/PACER/LOOP [facility] ARRHY [facility] Arrhythmi 12/15/2024 10:45 AM Alba Ramos MD [id number] PM&r 12/16/2024 8:30 AM Ena Mtz MD [...] while on IV antibiotics. Fax results to [phone] 4. Patient will need to be scheduled [...] Case IDs Date Procedure Surgeon Location Status [id number] 11/05/24 LEFT BELOW KNEE AMPUTATION Dallas Camejo MD [facility] OR Comp [id number] 11/17/24 Extraction lead(s) laser from dual PM system; [id number] Rui Pabon MD Main OR Comp [id number] 11/19/24 CVC INSERT (TUNNEL)W/O PORT > 5 YRS Devon Vogt DO IR Comp Diagnostic Studies: XR Foot 1 view-Left Result Date: 11/02/2024 This exam was performed in office at [facility] and images reviewed by orthopedic provider. Any [...] Device Extraction Discharge Instructions Important phone numbers: International Account Executive/Surgeon???s office: [phone] (8am-4:30pm Fri - Friday Our answering service [...] If it does not stop, [facility]. If you experience any of the above, call your surgeon/video game engineer???s office immediately. If still present, remove the [...] Report any of these symptoms to your video game engineer. Call your primary profile stitching machine operator if you experience any of the following: [...] Discharge Instructions Important phone numbers: [facility]: [phone] (8am-4:30pm Fri-Friday) International Account Executive/Surgeon???s office: [phone] (8am-4:30pm Fri -Friday) Our answering service is [...] experience any of the above, call your video game engineer???s office immediately It is normal to have [...] dental procedure. You should call your primary profile stitching machine operator if you experience any of the following: [...] when you get home. If your primary profile stitching machine operator???s office will monitor your pacemaker, please call [...] through the weekend - advised to call [place] - phone number on pg 5 of [...] Plan Plan Home w/family and [facility] Patient/Family in Agreement with Plan yes Final Discharge Disposition Code 06 - home with home health care Final Case Management Care Plan Note Summary: Per provider, patient is medically ready to transition home with services. Confirmed that patient is able to obtain medications/food/necessities post discharge. Patient now refusing HSC (LTACH) and returning home with son, [facility] for IV abx and [facility]. Final Destination: Home with son and [facility] Plan for home support/Caregiver/responsible person: Son and [facility] Follow-up provider appointment: Per AVS/W-10 Equipment Ordered [...] level of independence with self-care tasks. Current [facility] Daily Activity Score: 18 Precautions/Restrictions: aspiration, [...] in recliner, in NAD on RA, agreeable. 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 3 Bathing (including washing/rinsing/drying)? 2 Toileting (includes using toilet, bedpan, or urinal)? 2 Putting on and taking off upper body clothing? 3 Taking care of personal grooming such as brushing teeth? 4 Eating meals? 4 [facility] Daily Activity Score 18 Progress Summary (OT) Progress Toward Functional Goals (OT) progress toward functional goals is good Sign: Christen Tapia OT * Aditi Jones PA-C - 11/25/2024 11:50 AM EST PHYSICAL MEDICINE & REHABILITATION CONSULT FOLLOW-UP NOTE Patients Name: Blas Genao : 1960 MR Number: [id number] Reason for Consultation: Amputee rehab needs Date [...] acute CHFmrEF, pain. He is NWB to [facility]. Rehab Diagnosis: s/p left BKA Amputation: [...] support, tolerance to therapy and plan for residential antibiotics. He mayhave ability to progress to [...] 2 drop Each Eye Q2H PRN Gretel Hnids, COLLISION MECHANIC cefTRIAXone (ROCEPHIN) 2 g in sodium chloride-MBP [...] Units 5,000 Units Subcutaneous Q8H [facility] Gianluca Calles MD 5,000 Units at 11/25/24 0931 insulin glargine (LANtus/SEMGLEE) 100 units/mL injection 10 Units 10 Units Subcutaneous Daily Corbin Adonis, COLLISION MECHANIC 10 Units at 11/25/24 0933 insulin lispro (HumaLOG/ADMELOG) 100 units/mL injection 1-6 Units 1-6 Units Subcutaneous TID with meals Corbindenise Lamb, COLLISION MECHANIC 1 Units at 11/25/24 0900 insulin lispro (HumaLOG/ADMELOG) 100 units/mL injection 3 Units 3 Units Subcutaneous TID with mealsCorbin Lamb COLLISION MECHANIC 3 Units at 11/25/24 0905 ipratropium-albuterol (DUONEB) 0.5-2.5 mg/3 mL nebulizer solution 3 mL 3 mL Nebulization Q2H PRN Corbin Lamb COLLISION MECHANIC 3 mL at 11/07/24 1025 lactulose (ENULOSE) 10 gm/15 mL solution 20 g 20 g Oral Q4H PRN Corbin Lamb, COLLISION MECHANIC melatonin tablet 3 mg 3 mg Oral Nightly PRN Corbin Lamb COLLISION MECHANIC 3 mg at 11/19/24 2222 methocarbamol (ROBAXIN) tablet 1,000 mg 1,000 mg Oral 4x Daily Corbindenise Lamb, COLLISION MECHANIC 1,000 mg at 11/25/24 0934 metoPROLOL TARTRATE (LOPRESSOR) tablet 50 mg 50 mg Oral BID Corbin Adonis, COLLISION MECHANIC 50 mg at 11/25/24 0935 multivitamin with minerals tablet 1 tablet 1 tablet Oral Daily Corbin Adonis, COLLISION MECHANIC 1 tablet at 11/25/24 0935 naloxone (NARCAN) 0.4 mg/mL injection 0.4 mg 0.4 mg Intravenous Q5 Min PRN Corbindenise Lamb, COLLISION MECHANIC naloxone (NARCAN) 0.4 mg/mL injection 0.4 mg 0.4 mg Intravenous Q5 Min PRN Corbindenise Lamb, COLLISION MECHANIC nicotine (NICODERM CQ) 21 MG/24HR patch 1 patch 1 patch Transdermal Daily Corbin Adonis, COLLISION MECHANIC 1 patch at 11/25/24 0930 ondansetron (ZOFRAN) injection 4 mg 4 mg Intravenous Q6H PRN Corbin Adonis, COLLISION MECHANIC 4 mg at 11/17/24 1639 PANTOprazole (PROTONIX) EC tablet 40 mg 40 mg Oral Daily Corbin Adonis, COLLISION MECHANIC 40 mg at 11/25/24 0935 polyethylene glycol (miraLAx) packet 17 g 17 g Oral Daily Corbin Adonis, COLLISION MECHANIC 17 g at 11/25/24 0932 [Provider Held] pravastatin (PRAVACHOL) tablet 20 mg 20 mg Oral Daily Corbin Adonis, COLLISION MECHANIC pregabalin (LYRICA) capsule 100 mg 100 mg Oral TID Corbin Adonis, COLLISION MECHANIC 100 mg at 11/25/24 0935 senna-docusate (SENNA-S) 8.6-50 MG tablet 2 tablet 2 tablet Oral BID Corbin Adonis, COLLISION MECHANIC 2 tablet at 11/25/24 0936 thiamine mononitrate (VITAMIN B-1) tablet 200 mg 200 mg Oral Daily Corbin Adonis, COLLISION MECHANIC 200 mg at11/25/24 0934 Physical Exam: Vitals: [...] S/p Left BKA with ampushield and stump 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 Plan of Care Patient's plan [...] Sanchez MD - 11/24/2024 3:17 PM EST [facility] MEDICINE PROGRESS NOTE Assessment & [...] while on IV antibiotics. Fax results to [phone] 4. Patient will need to be scheduled [...] again today. Upon arrival he had a logistics team lead in the room with him.Waited outside for 20 minutes before moving on to other patients. Will attempt to meet with patientagain later this week to review stoplight previously provided. * Ena Mtz MD - 11/24/2024 11:24 AM EST Images from the original note were not included. [facility] INFECTIOUS DISEASE Consult progress Note Name: Blas [...] while on IV antibiotics. Fax results to [phone] 4. Patient will need to be scheduled for repeat TATIANNA end of November. Patient would like to get this done at [facility] He can follow-up with me on [...] 0849 Sign Ena Mtz MD, FACP, SP [facility] Infectious Diseases Available via FluGen SUBJECTIVE Remains in the hospital awaiting placement [...] not compromised. This report was generated using DigitalMR Speaking dictation software. Although every attempt has been made by the provider to proofread this document, occasional misspellings and typographical errors may still be present. * Gianluca Calles MD - 11/23/2024 3:06 PM EST [facility] MEDICINE PROGRESS NOTE Assessment & [...] MD 11/23/2024 3:06 PM * Milan Vale, HOUSEMAID - 11/23/2024 2:03 PM EST Physical Therapy [...] level of independence with functional mobility. Current [facility] Basic Mobility Score: (P) 18 Rehab [...] upon arrival, RN in room. Ampushield and train conductor inplace. Both agreeable for tx Existing Precautions/Restrictions [...] Progressive Mobility Progressive Mobility Level Achieved Ambulation [facility] Basic Mobility Turning from your back [...] Climbing 3-5 steps with a railing? 1 [facility] Basic Mobility Score 18 Therapy Assessment/Plan [...] PSG?: no Suggest ambulatory oximetry?: no Sharon Rockwell, YUN 11/23/2024 7:24 AM * Isabel Lee PA-C [...] c/w Jardiance - regarding the question of shelter PICC for Abx, patient high risk for PICC and proline placed instead on 11/19/24 - Patient should follow up with his outpatient frame stylist on discharge and get repeat lab work [...] found for: TACROLIMUS No results found for: [id number] , TOTVOL , CRCLR , PERIOD No [...] 0850 until manually unheld; held by Gayle Rsoe Reason: Other - Comment requiredHold Comments: While [...] Sign: Isabel Lee PA-C 11/23/2024 7:24 AM [facility] Nephrology Office [phone] Associated attestation - Anmol Reynoso MD - [...] - Patient can follow-up with his outpatient frame stylist upon discharge. Sign: Anmol Reynoso MD 11/23/2024 2:54 PM * Luz Escobedo RN - 11/22/2024 2:40 PM EST Attached media from the original note were not included. Micra AV leadless Pacemaker evaluation completed on B10E. Per patient request and verbal order SharronSHUBHAM Pitts: LRL increased from 50 bpm to 60 bpm. Presenting rhythm: AM/BATTERY ASSEMBLER DRY CELL @ 62 bpm. Underlying rhythm: CHB. AM/BATTERY ASSEMBLER DRY CELL pacing 81%, with total V-pacing 100%. Battery [...] level of independence with self-care tasks. Current [facility] Daily Activity Score: 16 Precautions/Restrictions: aspiration, [...] Progressive Mobility Progressive Mobility Level Achieved Ambulation [facility] Daily Activity Putting on and taking off Lower Body Clothing? 3 Bathing (including washing/rinsing/drying)? 2 Toileting (includes using toilet, bedpan, or urinal)? 2 Putting on and taking off upper body clothing? 3 Taking care of personal grooming such as brushing teeth? 3 Eating meals? 3 [facility] Daily Activity Score 16 Progress Summary [...] c/w Jardiance - regarding the question of shelter PICC for Abx, patient high risk for [...] found for: TACROLIMUS No results found for: [id number] , TOTVOL , CRCLR , PERIOD No [...] Sign: Anmol Reynoso MD 11/22/2024 9:34 AM [facility] Nephrology Office [phone] * Roberto Carranza PTA - 11/22/2024 8:46 [...] level of independence with functional mobility. Current [facility] Basic Mobility Score: 16 Rehab Plan [...] Progressive Mobility Level Achieved Transferring to Chair [facility] Basic Mobility Turning from your back [...] Climbing 3-5 steps with a railing? 1 [facility] Basic Mobility Score 16 Therapy Assessment/Plan [...] ongoing Sign: Roberto Carranza PTA * Gema iTm Jane APRN - 11/22/2024 8:18 AM EST Images from the original note were not included. [facility] PROGRESS NOTE Outpatient Dye Worker: [facility] Assessment & Plan Assessment 63 year old male with hypertension, hyperlipidemia, diabetes, CKD stage III, peripheral artery disease, diabetes, foot infection with osteomyelitis, complete heart block s/p dual chamber pacemaker sn1936, atrial fibrillation s/p multiple ablations and cardioversions [...] Q8H JUDSON Given, 5,000 Units at 11/22 014 insulin glargine (LANtus/SEMGLEE) 100 units/mL injection 10 [...] PO, Daily Given, 200 mg at 11/21 0815 PRN Medication Ordered Dose/Rate, Route, Frequency Last [...] by 8 bpm Confirmed by MD Claude, [facility] ([id number]) on 11/07/2024 6:25:53 PM TATIANNA [...] Compared to previous outside study report from [facility] on 08/05/2024, Mitral and tricuspid regurgitation were not previously reported. Recommend transesophageal echocardiogram if clinically indicated. Brain MRI 11/12/2024 No acute intracranial findings or suspicious intracranial lesions. No septic emboli. All additional appropriate imaging studies within the past 24 hours reviewed - images reviewed and independently interpreted. Sign Gema Jane APRN [facility] [place] 11/22/2024 8:19 AM * Jose Adair MD [...] found for: TACROLIMUS No results found for: [id number] , TOTVOL , CRCLR , PERIOD No results found for: IRON , TIBC , IRONSAT , UIBC Lab Results Component Value Date BILITOT 0.2 11/17/2024 AST 24 11/17/2024 Sign: Jose Adair MD 11/21/2024 2:23 PM * Gianluca Calles MD - 11/21/2024 12:02 PM EST [facility] MEDICINE PROGRESS NOTE Assessment & [...] Calles MD - 11/20/2024 11:43 AM EST [facility] MEDICINE PROGRESS NOTE Assessment & [...] MD 11/20/2024 11:44 AM * Elsy Coronel, COLLISION MECHANIC - 11/20/2024 9:23 AM EST Inpatient Nephrology [...] found for: TACROLIMUS No results found for: [id number] , TOTVOL , CRCLR , PERIOD No results found for: IRON , TIBC , IRONSAT , UIBC Lab Results Component Value Date BILITOT 0.2 11/17/2024 AST 24 11/17/2024 Signed: Elsy Coronel APRN 11/20/2024 9:23 AM Associated attestation - Jose Adair MD - 11/20/2024 6:31 PM EST ATTESTATION: This encounter was done in conjunction with [employer]. I provided the substantive portion of thevisit [...] Calles MD - 11/19/2024 2:22 PM EST HOSPITAL MEDICINE PROGRESS NOTE Assessment [...] original note were not included. [facility]OUS [facility] Consult progress Note Name: Blas [...] secondary to volume overload. Clinically improving, weaned toroom air 4. Polymicrobial bacteremia: Source was left [...] while on IV antibiotics. Fax results to [phone] 4. Patient will need to be scheduled for repeat TATIANNA end november Patient would like to follow-up with infectious disease close to home. I have communicated with Dr. Saritha Coffey office (infectious disease) at [phone]. She stated that this patient is very complicated for [facility] and she will not be following this patient He can follow-up with me in my office in 3 to 4 weeks. I would recommend that he be scheduled for repeat TATIANNA end november at here at [facility] Current antibiotic/day of therapy: Anti-infectives (From [...] Ena Mtz MD, FACP, CWSP [facility] Infectious Diseases Available via FluGen SUBJECTIVE Afebrile, status post AICD extraction CURRENT [...] care and coordination of care with his [id number] infectious disease physician and office Of note, some information is being carried forward from prior records for informational purposes only and is being cited so that efficiency, safety and quality of this patient's care is not compromised. This report was generated using DigitalMR Speaking dictation software. Although every attempt has [...] left stoplight for his review and will [place] back next week to review with the patient. * Valencia Lau APRN - 11/19/2024 8:02 AM EST Images from the original note were not included. [facility] PROGRESS NOTE Outpatient Dye Worker: [facility] Assessment & Plan Assessment 63 year old male with hypertension, hyperlipidemia, diabetes, CKD stage III, peripheral artery disease, diabetes, foot infection with osteomyelitis, complete heart block s/p dual chamber pacemaker [id number], atrial fibrillation s/p multiple ablations and cardioversions [...] injection 5,000 Units On hold since Fri11/16/2024 [id number] until manually unheld; held by Herberth Whitmore [...] by 8 bpm Confirmed by MD Claude, [facility] ([id number]) on 11/07/2024 6:25:53 PM TATIANNA [...] Compared to previous outside study report from [facility] on 08/05/2024, Mitral and tricuspid regurgitation were not previously reported. Recommend transesophageal echocardiogram if clinically indicated. Brain MRI 11/12/2024 No acute intracranial findings or suspicious intracranial lesions. No septic emboli. All additional appropriate imaging studies within the past 24 hours reviewed - images reviewed and independently interpreted. Sign Valencia Lau APRN [facility] [place] 11/19/2024 8:54 AM * Lela Amor MD [...] interrogation ordered for post- OP. Presenting rhythm: AM-BATTERY ASSEMBLER DRY CELL @ 69 bpm. Underlying rhythm: No ventricular response greater than 40 bpm. AM-BATTERY ASSEMBLER DRY CELL @ 84.8%. Battery and device parameters evaluated [...] following is my assessment: Reason For Order: Veneer Press Operator Orders Ordered Cardiac monitoring / telemetry Until discontinued Question Answer Comment Clinical Indications For Cardiac Monitoring Cardiac (Rhythm Related) Rhythm related indications Post EP Procedure (Ablation, PPM, ICD) 11/17/24 0377 Cardiac monitoring / telemetry Until discontinued Question: Clinical Indications For Cardiac Monitoring Answer: Critical Care/NICU/PACU 11/07/24 1209 Events Noted in the Last 24 hrs: none Lela Amor MD 11/18/2024 12:12 PM * Aditi Jones PA-C - 11/18/2024 10:45 AM EST PHYSICAL MEDICINE & REHABILITATION CONSULT FOLLOW-UP NOTE Patients Name: Blas Genao : 1960 MR Number: [id number] Reason for Consultation: Rehabilitation potential Date of [...] support, tolerance to therapy and plan for emt intermediate antibiotics. Will follow progress with therapy. Sleep: [...] mg 975 mg Oral Q6H [facility] Corbin Lamb, COLLISION MECHANIC 975 mg at 026 acetaminophen (TYLENOL) tablet 975 mg 975 mg Oral Q6H PRN Corbin Lamb COLLISION MECHANIC amiODARONE (PACERONE) tablet 200 mg 200 mg Oral Daily Corbin Adonis, COLLISION MECHANIC 200 mg at 11/18/24 1030 amLODIPine (NORVASC) tablet 10 mg 10 mg Oral Daily Corbin Adonis, COLLISION MECHANIC 10 mg at 11/18/24 1029 benzocaine-menthol (CHLORASEPTIC) 6-10 MG lozenge 1 lozenge 1 lozenge Mouth/Throat Q2H PRN Baldomero Hinds, COLLISION MECHANIC bisacodyl (DULCOLAX) suppository 10 mg 10 mg Rectal Daily PRN Corbin Lamb APRN bumetanide (BUMEX) injection 1 mg 1 mg Intravenous Q24H Corbin Lamb COLLISION MECHANIC 1 mg at 11/18/24 1103 buPROPion (WELLBUTRIN SR) 12 hr tablet 150 mg 150 mg Oral BID Corbin Lamb, COLLISION MECHANIC 150 mg at 11/18/24 1028 calcium carbonate (TUMS) chewable tablet 1,000 mg 1,000 mg Oral Q12H PRN Corbin Lamb COLLISION MECHANIC calcium citrate (CALCITRATE) tablet 950 mg 950 mg Oral BID with meals Corbin Lamb COLLISION MECHANIC 950 mgat 11/18/24 1105 carboxymethylcellulose (REFRESH PLUS) 0.5 % ophthalmic solution 2 drop 2 drop Each Eye Q2H PRN Gretel Hinds APRN cefTRIAXone (ROCEPHIN) 2 g in sodium chloride-MBP (NS) 100 mL IVPB-MBP 2 g Intravenous Q24H MD Dylan 200 mL/hr at 11/18/24 1235 2 g at 11/18/24 1235 chlorhexidine gluconate 2 % wipes - urethral catheter CHG application Topical Daily Corbin Lamb COLLISION MECHANIC Given at 11/18/24 1031 cholecalciferol tablet 2,000 Units 2,000 Units Oral Daily Corbin Lamb, COLLISION MECHANIC 2,000 Units at 11/18/24 1103 cyanocobalamin (VITAMIN B-12) tablet 2,500 mcg 2,500 mcg Oral Daily Corbin Lamb, COLLISION MECHANIC 2,500 mcg at 11/18/24 1027 DAPTOmycin (CUBICIN) 975 mg in sodium chloride (NS) 0.9 % 50 mL IVPB 10 mg/kg (Adjusted) Intravenous Q24H Corbin Lamb COLLISION MECHANIC 0 mL/hr at 11/16/24 1712 975 mg at 11/17/24 1420 donepezil (ARICEPT) tablet 10 mg 10 mg Oral QAM Corbin Lamb, COLLISION MECHANIC 10 mg at 11/18/24 1105 [Provider Held] empagliflozin (JARDIANCE) 25 mg 25 mg Oral Daily Corbin Lamb, COLLISION MECHANIC 25 mg at 11/04/24 0756 folic acid (FOLVITE) tablet 1 mg 1 mg Oral Daily Corbin Lamb, COLLISION MECHANIC 1 mg at 11/18/24 1028 [Provider Held] glimepiride (AMARYL) tablet 2 mg 2 mg Oral Daily with breakfast Corbin Lamb COLLISION MECHANIC 2 mg at 11/04/24 0757 [Provider Held] heparin (porcine) 5000 unit/mL injection 5,000 Units 5,000 Units Subcutaneous Q8H JU[facility]ON Corbin Lamb COLLISION MECHANIC 5,000 Units at 11/16/24 1714 HYDROmorphone (DILAUDID) tablet 2 mg 2 mg Oral Q3H PRN Corbin Lamb COLLISION MECHANIC 2 mg at 11/18/24 1030 HYDROmorphone (DILAUDID) tablet 4 mg 4 mg Oral Q3H PRN Corbin Lamb, COLLISION MECHANIC 4 mg at 11/16/24 2213 insulin glargine (LANtus/SEMGLEE) 100 units/mL injection 10 Units 10 Units Subcutaneous Daily Corbin Lamb COLLISION MECHANIC 10 Units at 11/18/24 1032 insulin lispro (HumaLOG/ADMELOG) 100 units/mL injection 1-6 Units 1-6 Units Subcutaneous TID with meals Corbin Lamb COLLISION MECHANIC 3 Units at 11/18/24 1232 insulin lispro (HumaLOG/ADMELOG) 100 units/mL injection 3 Units 3 Units Subcutaneous TID with mealsCorbin Lamb COLLISION MECHANIC 3 Units at 11/18/24 1232 ipratropium-albuterol (DUONEB) 0.5-2.5 mg/3 mL nebulizer solution 3 mL 3 mL Nebulization Q2H PRN Corbin Lamb, COLLISION MECHANIC 3 mL at 11/07/24 1025 lactulose (ENULOSE) 10 gm/15 mL solution 20 g 20 g Oral Q4H PRN Corbin Lamb COLLISION MECHANIC melatonin tablet 3 mg 3 mg Oral Nightly PRN Corbin Lamb, COLLISION MECHANIC 3 mg at 11/16/24 2215 methocarbamol (ROBAXIN) tablet 1,000 mg 1,000 mg Oral 4x Daily Corbin Lamb COLLISION MECHANIC 1,000 mg at 11/18/24 1105 metoPROLOL TARTRATE (LOPRESSOR) tablet 50 mg 50 mg Oral BID Corbin Lamb, COLLISION MECHANIC 50 mg at 11/18/24 1031 multivitamin with minerals tablet 1 tablet 1 tablet Oral Daily Corbin Lamb COLLISION MECHANIC 1 tablet at 11/18/24 1028 naloxone (NARCAN) 0.4 mg/mL injection 0.4 mg 0.4 mg Intravenous Q5 Min PRN Corbin Adonis, COLLISION MECHANIC naloxone (NARCAN) 0.4 mg/mL injection 0.4 mg 0.4 mg Intravenous Q5 Min PRN Corbin Adonis, COLLISION MECHANIC nicotine (NICODERM CQ) 21 MG/24HR patch 1 patch 1 patch Transdermal Daily Corbin Adonis, COLLISION MECHANIC 1patch at 11/18/24 1030 ondansetron (ZOFRAN) injection 4 mg 4 mg Intravenous Q6H PRN Corbin Adonis, COLLISION MECHANIC 4 mg at 11/17/24 1639 PANTOprazole (PROTONIX) EC tablet 40 mg 40 mg Oral Daily Corbin Adonis, COLLISION MECHANIC 40 mg at 11/18/24 1029 polyethylene glycol (miraLAx) packet 17 g 17 g Oral Daily Corbin Adonis, COLLISION MECHANIC 17 g at 11/18/24 1040 [Provider Held] pravastatin (PRAVACHOL) tablet 20 mg 20 mg Oral Daily Corbin Adonis, COLLISION MECHANIC pregabalin (LYRICA) capsule 100 mg 100 mg Oral TID Corbin Adonis, COLLISION MECHANIC 100 mg at 11/18/24 1105 senna-docusate (SENNA-S) 8.6-50 MG tablet 2 tablet 2 tablet Oral BID Corbin Adonis, COLLISION MECHANIC 2 tablet at 11/18/24 1032 thiamine mononitrate (VITAMIN B-1) tablet 200 mg 200 mg Oral Daily Corbin Adonis, COLLISION MECHANIC 200 mg at11/18/24 1031 Physical Exam: Vitals: [...] S/p Left BKA with ampushield and stump train 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 Presenting rhythm: AM-BATTERY ASSEMBLER DRY CELL @ 69 bpm. Underlying rhythm: No ventricular response greater than 40 bpm. AM-BATTERY ASSEMBLER DRY CELL @ 84.8%. Battery and device parameters evaluated [...] original note were not included. [facility] INFECTIOUS DISEASE Consult progress Note Name: Blas [...] try to reach Dr. Saritha Coffey at [facility] tomorrow Current antibiotic/day of therapy: [...] Ena Mtz MD, FACP, CWSP [facility] Infectious Diseases Available via FluGen SUBJECTIVE Afebrile, status post AICD extraction CURRENT [...] not compromised. This report was generated using DigitalMR Speaking dictation software. Although every attempt has been made by the provider to proofread this document, occasional misspellings and typographical errors may still be present. * Valencia Lau APRN - 11/18/2024 8:48 AM EST Images from the original note were not included. [facility] PROGRESS NOTE Outpatient Dye Worker: [facility] Assessment & Plan Assessment 63 year old male with hypertension, hyperlipidemia, diabetes, CKD stage III, peripheral artery disease, diabetes, foot infection with osteomyelitis, complete heart block s/p dual chamber pacemaker [id number], atrial fibrillation s/p multiple ablations and cardioversions [...] Q6H JUDSON Given, 650 mg at 11/18 030 amiODARONE (PACERONE) tablet 200 mg 200 mg, [...] injection 5,000 Units On hold since Fri11/16/2024 [id number] until manually unheld; held by Herberth Whitmore [...] by 8 bpm Confirmed by MD Claude, [facility] ([id number]) on 11/07/2024 6:25:53 PM TATIANNA [...] Compared to previous outside study report from [facility] on 08/05/2024, Mitral and tricuspid regurgitation were not previously reported. Recommend transesophageal echocardiogram if clinically indicated. Brain MRI 11/12/2024 No acute intracranial findings or suspicious intracranial lesions. No septic emboli. All additional appropriate imaging studies within the past 24 hours reviewed - images reviewed and independently interpreted. Sign Valencia Lau APRN [facility] [place] 11/18/2024 8:48 AM * Cristina Rodriguez APRN [...] Department Center 12/07/2024 1:30 PM ROOM, ICD/PACER/LOOP [facility] Arrhythmi Current Facility-Administered Medications: acetaminophen (TYLENOL) tablet 975 mg, 975 mg, Oral, Q6H JUDSON, Corbin Adonis, COLLISION MECHANIC, 650 mg at 11/18/24 0305 acetaminophen (TYLENOL) tablet 975 mg, 975 mg, Oral, Q6H PRN, Corbin Adonis, COLLISION MECHANIC amiODARONE (PACERONE) tablet 200 mg, 200 mg, Oral, Daily, Corbin Adonis, COLLISION MECHANIC, 200 mg at 11/17/24 0813 amLODIPine (NORVASC) tablet 10 mg, 10 mg, Oral, Daily, Corbin Adonis, COLLISION MECHANIC, 10 mg at 11/17/24 0816 benzocaine-menthol (CHLORASEPTIC) 6-10 MG lozenge 1 lozenge, 1 lozenge, Mouth/Throat, Q2H PRN, Gretel Hinds APRN bisacodyl (DULCOLAX) suppository 10 mg, 10 mg, Rectal, Daily PRN, Corbin Lamb, COLLISION MECHANIC bumetanide (BUMEX) injection 1 mg, 1 mg, Intravenous, Q24H, Corbin Lamb, COLLISION MECHANIC, 1 mg at 11/17/24 0813 buPROPion (WELLBUTRIN SR) 12 hr tablet 150 mg, 150 mg, Oral, BID, Corbin Adonis, COLLISION MECHANIC, 150 mg at11/17/24 2125 calcium carbonate (TUMS) chewable tablet 1,000 mg, 1,000 mg, Oral, Q12H PRN, Corbin Lamb, COLLISION MECHANIC calcium citrate (CALCITRATE) tablet 950 mg, 950 mg, Oral, BID with meals, Corbin Lamb, COLLISION MECHANIC, 950 mg at 11/17/24 0813 carboxymethylcellulose (REFRESH PLUS) 0.5 % ophthalmic solution 2 drop, 2 drop, Each Eye, Q2H PRN, Gretel Hinds APRN chlorhexidine gluconate 2 % wipes - urethral catheter CHG application, , Topical, Daily, Corbin Lamb COLLISION MECHANIC cholecalciferol tablet 2,000 Units, 2,000 Units, Oral, Daily, Corbin Adonis, COLLISION MECHANIC, 2,000 Units at 11/17/24 0815 cyanocobalamin (VITAMIN B-12) tablet 2,500 mcg, 2,500 mcg, Oral, Daily, Corbin Adonis, COLLISION MECHANIC, 2,500 mcg at 11/17/24 0814 DAPTOmycin (CUBICIN) 975 mg in sodium chloride (NS) 0.9 % 50 mL IVPB, 10 mg/kg (Adjusted), Intravenous, Q24H, Corbindenise Lamb, COLLISION MECHANIC, Last Rate: 0 mL/hr at 11/16/24 1712, 975 mg at 11/17/24 1420 donepezil (ARICEPT) tablet 10 mg, 10 mg, Oral, QAM, Corbin Lamb, COLLISION MECHANIC, 10 mg at 11/17/24 0816 [Provider Held] empagliflozin (JARDIANCE) 25 mg, 25 mg, Oral, Daily, Corbin Adonis, COLLISION MECHANIC, 25 mg at 11/04/24 0756 folic acid (FOLVITE) tablet 1 mg, 1 mg, Oral, Daily, Corbin Adonis, COLLISION MECHANIC, 1 mg at 11/17/24 0813 [Provider Held] glimepiride (AMARYL) tablet 2 mg, 2 mg, Oral, Daily with breakfast, Corbin Adonis, COLLISION MECHANIC, 2 mg at 11/04/24 0757 [Provider Held] heparin (porcine) 5000 unit/mL injection 5,000 Units, 5,000 Units, Subcutaneous, Q8H JUDSON, Corbin Adonis, COLLISION MECHANIC, 5,000 Units at 11/16/24 1714 HYDROmorphone (DILAUDID) tablet 2 mg, 2 mg, Oral, Q3H PRN, Corbin Adonis, COLLISION MECHANIC, 2 mg at 540 HYDROmorphone (DILAUDID) tablet 4 mg, 4 mg, Oral, Q3H PRN, Corbin Adonis, COLLISION MECHANIC, 4 mg at 213 insulin glargine (LANtus/SEMGLEE) 100 units/mL injection 10 Units, 10 Units, Subcutaneous, Daily, Corbindenise Lamb, COLLISION MECHANIC insulin lispro (HumaLOG/ADMELOG) 100 units/mL injection 1-6 Units, 1-6 Units, Subcutaneous, TID with meals, Corbindenise Lamb, COLLISION MECHANIC, 1 Units at 11/17/24 1856 insulin lispro (HumaLOG/ADMELOG) 100 units/mL injection 3 Units, 3 Units, Subcutaneous, TID with meals, Corbin Adonis, COLLISION MECHANIC, 3 Units at 11/17/24 1213 ipratropium-albuterol (DUONEB) 0.5-2.5 mg/3 mL nebulizer solution 3 mL, 3 mL, Nebulization, Q2H PRN, Corbindenise Lamb, COLLISION MECHANIC, 3 mL at 11/07/24 1025 lactulose (ENULOSE) 10 gm/15 mL solution 20 g, 20 g, Oral, Q4H PRN, Corbin Lamb, COLLISION MECHANIC melatonin tablet 3 mg, 3 mg, Oral, Nightly PRN, Corbin Adonis, COLLISION MECHANIC, 3 mg at 11/16/24 221 methocarbamol (ROBAXIN) tablet 1,000 mg, 1,000 mg, Oral, 4x Daily, Corbin Adonis, COLLISION MECHANIC, 1,000 mgat 11/17/242125 metoPROLOL TARTRATE (LOPRESSOR) tablet 50 mg, 50 mg, Oral, BID, Corbin Adonis, COLLISION MECHANIC, 50 mg at 11/17/242123 multivitamin with minerals tablet 1 tablet, 1 tablet, Oral, Daily, Corbin Adonis, COLLISION MECHANIC, 1 tabletat 11/17/24 0816 naloxone (NARCAN) 0.4 mg/mL injection 0.4 mg, 0.4 mg, Intravenous, Q5 Min PRN, Corbin Adonis, COLLISION MECHANIC naloxone (NARCAN) 0.4 mg/mL injection 0.4 mg, 0.4 mg, Intravenous, Q5 Min PRN, Corbin Adonis, COLLISION MECHANIC nicotine (NICODERM CQ) 21 MG/24HR patch 1 patch, 1 patch, Transdermal, Daily, Corbin Adonis, COLLISION MECHANIC, 1 patch at 11/17/24 0816 ondansetron (ZOFRAN) injection 4 mg, 4 mg, Intravenous, Q6H PRN, Corbin Adonis, COLLISION MECHANIC, 4 mg at 11/17/24 1639 PANTOprazole (PROTONIX) EC tablet 40 mg, 40 mg, Oral, Daily, Corbin Adonis, COLLISION MECHANIC, 40 mg at 11/17/24 0815 polyethylene glycol (miraLAx) packet 17 g, 17 g, Oral, Daily, Corbin Adonis, COLLISION MECHANIC, 17 g at 11/17/24 1212 [Provider Held] pravastatin (PRAVACHOL) tablet 20 mg, 20 mg, Oral, Daily, Corbin Adonis, COLLISION MECHANIC pregabalin (LYRICA) capsule 100 mg, 100 mg, Oral, TID, Corbin Adonis, COLLISION MECHANIC, 100 mg at 11/17/242123 senna-docusate (SENNA-S) 8.6-50 MG tablet 2 tablet, 2 tablet, Oral, BID, Corbin Adonis, COLLISION MECHANIC, 2 tablet at 11/17/242124 thiamine mononitrate (VITAMIN B-1) tablet 200 mg, 200 mg, Oral, Daily, Corbin Lamb, COLLISION MECHANIC, 200 mg at 11/17/24 0814 Vitals: 11/18/24 0025 11/18/24 0119 11/18/24 0400 11/18/24 0530 BP: (!) 110/53 (!) 97/54 (!) 103/55 BP Location: Right arm Right arm Right arm Patient Position: Lying Lying Lying Pulse: (!) 53 (!) 55 (!) 54 61 Resp: 18 Temp: 97.8 ??F (36.6 ??C) TempSrc: Tympanic SpO2: 94% 94% Weight: 99.2 kg (218 lb 11.1 oz) Height: Cristina Gomezneal, COLLISION MECHANIC 11/18/24 9:18 AM Addendum: From an EP perspective, he can re-start his Eliquis today. Cristina Michael, SHUBHAM 11/18/24 9:19 AM * Sri Pena RN - 11/18/2024 8:25 AM EST Attached media from the original note were not included. Pacemaker evaluation completed on B10E, device interrogation ordered for post- OP. Presenting rhythm: AM-BATTERY ASSEMBLER DRY CELL @ 69 bpm. Underlying rhythm: No ventricular response greater than 40 bpm. AM-BATTERY ASSEMBLER DRY CELL @ 84.8%. Battery and device parameters evaluated [...] level of independence with self-care tasks. Current [facility] Daily Activity Score: 16 Precautions/Restrictions: fall, aspiration, pacemaker, isolation: contact, weight bearing (NWBing to L residual limb with train conductor and nutmeggar in place, skin) Rehab Plan [...] bearing (NWBing to L residual limb with train conductor and nutmeggar in place, skin) Pain Assessment [...] Progressive Mobility Level Achieved Edge of Bed [facility] Daily Activity Putting on and taking off Lower Body Clothing? 3 Bathing (including washing/rinsing/drying)? 2 Toileting (includes using toilet, bedpan, or urinal)? 2 Putting on and taking off upper body clothing? 3 Taking care of personal grooming such as brushing teeth? 3 Eating meals? 3 [facility] Daily Activity Score 16 Therapy Assessment/Plan [...] OT) goal ongoing Bathing Goal 1 (OT) [place] Level/Cues Needed (Bathing Goal 1, OT) minimum [...] Frame (Dressing Goal 1, OT) 1 week [place]/Cues Needed (Dressing Goal 1, OT) minimum assist (75% or more patient effort) Toileting Goal 1 (OT) Activity/Device (Toileting Goal 1, OT) toileting skills, all Progress/Outcome (Toileting Goal 1, OT) goal revised this date Time Frame (Toileting Goal 1, OT) 1 week [place] Level/Cues Needed (Toileting Goal 1, OT) minimum assist (75% or more patient effort) Sign: Katy Rodgers, OT * Valencia Lau APRN - 11/17/2024 10:51 AM EST Images from the original note were not included. [facility] PROGRESS NOTE Outpatient Dye Worker: [facility] Assessment & Plan Assessment 63 year old male with hypertension, hyperlipidemia, diabetes, CKD stage III, peripheral artery disease, diabetes, foot infection with osteomyelitis, complete heart block s/p dual chamber pacemaker [id number], atrial fibrillation s/p multiple ablations and cardioversions [...] Bumex 1 mg daily today -BNP downtrending [phone] -Closely monitor renal function and electrolytes with [...] -Pacer interrogation 11/11/24: Presenting rhythm: AP / BATTERY ASSEMBLER DRY CELL @ 60 bpm. Underlying rhythm: SB @ [...] by 8 bpm Confirmed by MD Claude, [facility] ([id number]) on 11/07/2024 6:25:53 PM TATIANNA [...] Compared to previous outside study report from [facility] on 08/05/2024, Mitral and tricuspid regurgitation were not previously reported. Recommend transesophageal echocardiogram if clinically indicated. Brain MRI 11/12/2024 No acute intracranial findings or suspicious intracranial lesions. No septic emboli. All additional appropriate imaging studies within the past 24 hours reviewed - images reviewed and independently interpreted. Sign Valencia Lau APRN [facility] [place] 11/17/2024 10:51 AM Associated attestation - Devon [...] MD 11/17/2024 10:06 AM * Roberto Carranza, HOUSEMAID - 11/17/2024 9:36 AM EST Physical Therapy Progress Note Precautions/Restrictions: fall, aspiration, other (see comments) (Skin) Assessment Summary: Patient seen for PT follow up. L residual limb train conductor and nutmegger donned. Performed bed mobility and [...] level of independence with functional mobility. Current [facility] Basic Mobility Score: 16 Rehab Plan [...] Progressive Mobility Level Achieved Transferring to Chair [facility] Basic Mobility Turning from your back [...] Climbing 3-5 steps with a railing? 1 [facility] Basic Mobility Score 16 Therapy Assessment/Plan [...] original note were not included. [facility]FECTIOUS [facility] Consult progress Note Name: Blas [...] 0849 Sign Ena Mtz MD, FACP, CWSP [facility] Infectious Diseases Available via FluGen SUBJECTIVE Afebrile. No new complaints Feels better. [...] not compromised. This report was generated using Rise Art Naturally Speaking dictation software. Although every attempt has been made by the provider to proofread this document, occasional misspellings and typographical errors may still be present. * Maddison Villalpando MD - 11/16/2024 2:35 PM EST [facility] MEDICINE PROGRESS NOTE Assessment & [...] Scheduled Meds: acetaminophen, 975 mg, Oral, Q6H JUSDON amiODARONE, 200 mg, Oral, Daily amLODIPine, 10 [...] included. Coverage for Dr. Mtz [facility] ID Progress Note Name: Blas Genao Age: [...] Soft, nontender Extremities: Left BKA stump with train conductor garment, and ampul sheIld LABORATORY AND DIAGNOSTIC [...] was performed in office at [facility] and images reviewed by orthopedic provider. Any [...] Units 5,000 Units Subcutaneous Q8H [facility] Luis Degroot MD 5,000 Units at 11/16/24 [...] Units 1-6 Units Subcutaneous TID with meals Madidson Villalpando MD 2 Units at 11/16/24 0949 insulin lispro (HumaLOG/ADMELOG) 100 units/mL injection 3 Units 3 Units Subcutaneous [facility] 3 Units at 11/16/24 0947 [...] not compromised This report was generated using MyWerx dictation software. Although every attempt has been made by the provider to proofread this document, occasional misspellings and typographical errors Sign Chris Taylor MD, [facility], [facility] Infectious Diseases Available via [employer] 11/16/2024 11:27 AM * Maddison Villalpando MD - 11/15/2024 5:16 PM EST [facility] MEDICINE PROGRESS NOTE Assessment & [...] included. Coverage for Dr. Mtz [facility] ID Progress Note Name: Blas Genao Age: [...] faecium -10/27: Left foot wound culture at [facility]: MRSA, Enterococcus faecalis, VRE, Corynebacterium species and [...] was performed in office at [facility] and images reviewed by orthopedic provider. Any [...] Units 5,000 Units Subcutaneous Q8H [facility] Luis Degroot MD 5,000 Units at [...] not compromised This report was generated using MyWerx dictation software. Although every attempt has been made by the provider to proofread this document, occasional misspellings and typographical errors Sign Chris Taylor MD, [facility], [facility] Infectious Diseases Available via [employer] 11/15/2024 1:10 PM * Devon Lazo MD - 11/15/2024 1:00 PM EST Images from the original note were not included. [facility] PROGRESS NOTE Outpatient Dye Worker: Assessment & Plan Assessment 63 year old male with hypertension, hyperlipidemia, diabetes, CKD stage III, peripheral artery disease, diabetes, foot infection with osteomyelitis, complete heart block s/p dual chamber pacemaker [id number], atrial fibrillation s/p multiple ablations and cardioversions [...] BID with meals Given, 950 mg at 02/17 0851 chlorhexidine gluconate 2 % wipes - [...] by 8 bpm Confirmed by MD Claude, [facility] ([id number]) on 11/07/2024 6:25:53 PM All additional appropriate imaging studies within the past 24 hours reviewed - images reviewed and independently interpreted. Sign Devon Lazo MD [facility] [place] 11/15/2024 1:00 PM * Elida Berger OT [...] Patient is highly motivated to return to [facility] and reports good family support and DME. Pt is an excellent rehab candidate and will benefit from3 hours of intensive daily therapy with the potential to return home and reintegrate back into the [employer]. Progress Towards Goals: progress toward functional goals is good Outcome Measures: The Activity Measure for Post-Acute Care (AM-PAC) Daily Activity Inpatient Short Form (6-clicks) zakiya standardized measure used to quantify deficits in self-care. The total score of the measure ranges from 6-24. A higher score indicates a higher level of independence with self-care tasks. Current [facility] Daily Activity Score: 17 Precautions/Restrictions: fall, [...] Progressive Mobility Level Achieved Transferring to Chair [facility] Daily Activity Putting on and taking off Lower Body Clothing? 3 Bathing (including washing/rinsing/drying)? 2 Toileting (includes using toilet, bedpan, or urinal)? 2 Putting on and taking off upper body clothing? 3 Taking care of personal grooming such as brushing teeth? 3 Eating meals? 4 [facility] Daily Activity Score 17 Therapy Assessment/Plan [...] Villalpando MD - 11/14/2024 2:48 PM EST [facility] MEDICINE PROGRESS NOTE Assessment & [...] from the original note were not included. [facility] Inpatient Progress Note Date of admission:11/02/2024 Today's date: 11/13/2024 Primary Dye Worker: [facility] Assessment & Plan 63 year old male with hypertension, hyperlipidemia, diabetes, CKD stage III, peripheral artery disease, diabetes, foot infection with osteomyelitis, complete heart block s/p dual chamber pacemaker [id number], atrial fibrillation s/p multiple ablations and cardioversions [...] -Pacer interrogation 11/11/24: Presenting rhythm: AP / BATTERY ASSEMBLER DRY CELL @ 60 bpm. Underlying rhythm: SB @ [...] pain, dizziness, palpitations, syncope Objective: Telemetry Reviewed: BATTERY ASSEMBLER DRY CELL 60 Last Vitals Pulse:63,Resp:18,BP:116/60,SpO2:96 %,Weight:120 kg (264 [...] (AMARYL) tablet 2 mg On hold since [facility] 11/04/2024 at 1503 until manually unheld; [...] Compared to previous outside study report from [facility] on 08/05/2024, Mitral and tricuspid regurgitation [...] Villalpando MD - 11/12/2024 4:39 PM EST [facility] MEDICINE PROGRESS NOTE Assessment & [...] - 11/12/2024 3:33 PM EST [facility] ID Progress Note Length of Stay: 10 [...] final timing Time spent on chart/literature review, [id number] discussion and exam with patient, and documentation: [...] Resolved Problems: Noemí Danielle MD Available on 1stdibs 11/12/2024 3:33 PM * POOJA Allen - 11/12/2024 11:59 AM EST Images from the original note were not included. [facility] Inpatient Progress Note Date of admission:11/02/2024 Today's date: 11/12/2024 Primary Dye Worker: [facility] Assessment & Plan 63 year old male with hypertension, hyperlipidemia, diabetes, CKD stage III, peripheral artery disease, diabetes, foot infection with osteomyelitis, complete heart block s/p dual chamber pacemaker [id number], atrial fibrillation s/p multiple ablations and cardioversions [...] likely next week- EP on board Pacer jordynal 11/11/24: Presenting rhythm: AP / BATTERY ASSEMBLER DRY CELL @ 60 bpm. Underlying rhythm: SB @ [...] No lightheadedness or dizziness. Objective: Telemetry Reviewed: BATTERY ASSEMBLER DRY CELL 60 Last Vitals Pulse:67,Resp:18,BP:(!) 113/53,SpO2:(!) 91 %,Weight:120 [...] Q6H JUDSON Given, 975 mg at 11/12 1056 amiODARONE (PACERONE) tablet 200 mg 200 mg, [...] empagliflozin (JARDIANCE) 25 mg On hold since [facility] 11/04/2024 at 1503 until manually unheld; [...] Compared to previous outside study report from [facility] on 08/05/2024, Mitral and tricuspid regurgitation [...] EST I agree with the clinical pharmacy manager note. * Elida Berger OT - 11/12/2024 10:08 AM EST Occupational [...] Patient is highly motivated to return to [facility] and reports good family support and DME. [...] level of independence with self-care tasks. Current [facility] Daily Activity Score: 16 Precautions/Restrictions: fall, [...] Progressive Mobility Level Achieved Transferring to Chair [facility] Daily Activity Putting on and taking off Lower Body Clothing? 2 Bathing (including washing/rinsing/drying)? 2 Toileting (includes using toilet, bedpan, or urinal)? 2 Putting on and taking off upper body clothing? 3 Taking care of personal grooming such as brushing teeth? 3 Eating meals? 4 [facility] Daily Activity Score 16 Therapy Assessment/Plan [...] ordered for function. Presenting rhythm: AP / BATTERY ASSEMBLER DRY CELL @ 60 bpm. Underlying rhythm: SB @ [...] of 40-44% and patent foramina well with [id number] shunting and moderate to severe TR MRI [...] validated and emotional support provided; nurse manager imaging made aware. Resources: Patient informed of the following resources and how to request it: Integrative Medicine Services available at [facility], including, Massage Therapy, and Reiki/Energy Therapy Social [...] included. Coverage for Dr. Mtz [facility] ID Progress Note Name: Blas Genao Age: [...] faecium -10/27: Left foot wound culture at [facility]: MRSA, Enterococcus faecalis, VRE, Corynebacterium species and [...] nontender Left BKA stump site covered in train conductor garment and ampu sheild LABORATORY AND DIAGNOSTIC [...] was performed in office at [facility] and images reviewed by orthopedic provider. Any findings are documented within ambulatory encounter note on date of service. Current Medications: Current Facility-Administered Medications Medication Dose Route Frequency Provider Last Rate Last Admin acetaminophen (TYLENOL) tablet 975 mg 975 mg Oral Q6H [facility] Rafiq Chakraborty MD 975 mg at 11/11/24 0936 amiODARONE (PACERONE) tablet 200 mg 200 mg Oral Daily Claire Garibay PA-C 200 mg at 11/11/24 0937 amLODIPine (NORVASC) tablet 10 mg 10 mg Oral Daily Rafiq Chakraborty MD 10 mg at 11/11/24 0937 [Provider Held] aspirin enteric coated (ECOTRIN LOW STRENGTH) tablet 81 mg 81 mg Oral Q12H [facility] Rafiq Chakraborty MD 81 mg at [...] 1 Tube Oral Q15 Min PRN Kayla Ornoa APRN Or glucose (GLUTOSE 15) 40 % [...] Eunice Garrison APRN 1 Units at 11/10/24 203 insulin lispro (HumaLOG/ADMELOG) 100 units/mL injection 1-6 Units 1-6 Units Subcutaneous Q4H [facility] POOJA Crews [Provider Held] insulin lispro [...] not compromised This report was generated using DigitalMR Speaking dictation software. Although every attempt has been made by the provider to proofread this document, occasional misspellings and typographical errors Sign Chris Taylor MD, [facility], [facility] Infectious Diseases Available via [employer] 11/11/2024 10:52 AM * Olimpia Lainez, FanyD [...] 4 mg q3h PRN for severe pain ([id number]). 1x dose of liquid dilaudid 1mg given [...] PPM, further plan based on results of ATTIANNA TTE 11/04: The left ventricle is mildly [...] Compared to previous outside study report from [facility] on 08/05/2024, Mitral and tricuspid regurgitation [...] at 1503 until manually unheld; held by Juauqin Kern MDHold Reason: Pre-procedure On hold since [...] of Pulmonary, Critical Care, and Sleep Medicine [address] [place] [address], [address], [place] [address] Critical Care Progress Note Assessment & Plan [...] Compared to previous outside study report from [facility] on 08/05/2024, Mitral and tricuspid regurgitation [...] Case IDs Date Procedure Surgeon Location Status [id number] 11/05/24 LEFT BELOW KNEE AMPUTATION [place] Camejo [...] empagliflozin (JARDIANCE) 25 mg On hold since [facility] 11/04/2024 at 1503 until manually unheld; [...] (AMARYL) tablet 2 mg On hold since [facility] 11/04/2024 at 1503 until manually unheld; [...] PO, Daily Given, 40 mg at 11/10 0912 [Provider Held] pravastatin (PRAVACHOL) tablet 20 mg [...] concerns as highlighted below if appropriate. CXR 2 preliminary read: IMPRESSION: Worsening bilateral upper lung field airspace opacities and bronchial wall thickening compared to prior. CXR 11/04: IMPRESSION: Bilateral reticulonodular opacities concerning for interstitial edema. Superimposed atypical infection cannot be ruled out. This report was generated using DigitalMR Speaking dictation software. Although every attempt has [...] awaiting TATIANNA to rule out/in endocarditis Plan -JEANB, socorroield and stump train conductor -Currently on ASA BID and subcutaneous heparin- [...] redressed with xeroform, abds and applied the train conductor garment and ampu shield. Labs: Recent Labs [...] as his HCP and appoint his son Blsa Evans and sister Jessica as his Joint [...] included. Coverage for Dr. Mtz [facility] ID Progress Note Name: Blas Genao Age: [...] faecium -10/27: Left foot wound culture at [facility]: MRSA, Enterococcus faecalis, VRE, Corynebacterium species and [...] 11/07/24 1229 11/07/24 0813 11/06/24 0751 11/06/24 4878 SODIUM mmol/L -- -- 135* -- 139 [...] was performed in office at [facility] and images reviewed by orthopedic provider. Any findings are documented within ambulatory encounter note on date of service. Current Medications: Current Facility-Administered Medications Medication Dose Route Frequency Provider Last Rate Last Admin acetaminophen (TYLENOL) tablet 975 mg 975 mg Oral Q6H [facility] Rafiq Chakraborty MD 975 mg at 11/10/24 0407 amiODARONE (PACERONE) tablet 200 mg 200 mg Oral Daily Claire Garibay PA-C 200 mg at 11/10/24 0915 amLODIPine (NORVASC) tablet 10 mg 10 mg Oral Daily Rafiq Chakraborty MD 10 mg at 11/10/24 0909 aspirin enteric coated (ECOTRIN LOW STRENGTH) tablet 81 mg 81 mg Oral Q12H [facility] Rafiq Chakraborty MD 81 mg at [...] Units 5,000 Units Subcutaneous Q8H [facility] Haven Bach APRN 5,000 Units at [...] mg 500 mg Oral Daily with breakfast Rafqi Chakraborty MD 500 mg at 11/04/24 0756 [...] not compromised This report was generated using DigitalMR Speaking dictation software. Although every attempt has been made by the provider to proofread this document, occasional misspellings and typographical errors Sign Chris Taylor MD, [facility], [facility] Infectious Diseases Available via [employer] 11/10/2024 11:34 AM * POOJA Jimenez - 11/10/2024 10:45 AM EST Images from the original note were not included. [facility] Inpatient Progress Note Date of admission:11/02/2024 Today's date: 11/10/2024 Primary Dye Worker: [facility] [place] Assessment & Plan 63 year old male with hypertension, hyperlipidemia, diabetes, CKD stage III, peripheral artery disease, diabetes, foot infection with osteomyelitis, complete heart block s/p dual chamber pacemaker [id number], atrial fibrillation s/p multiple ablations and cardioversions [...] abdomen much less distended Objective: Telemetry Reviewed: BATTERY ASSEMBLER DRY CELL 60 Last Vitals Pulse:60,Resp:17,BP:130/60,SpO2:94 %,Weight:120 kg (264 [...] Compared to previous outside study report from [facility] on 08/05/2024, Mitral and tricuspid regurgitation [...] Compared to previous outside study report from [facility] on 08/05/2024, Mitral and tricuspid regurgitation [...] 11/06: sterile to date - Blood cultures 2/9: sterile to date - MRSA 11/03: negative [...] empagliflozin (JARDIANCE) 25 mg On hold since [facility] 11/04/2024 at 1503 until manually unheld; [...] (AMARYL) tablet 2 mg On hold since [facility] 11/04/2024 at 1503 until manually unheld; [...] PO, Daily Given, 200 mg at 11/09 09 Continuous Medication Ordered Dose/Rate, Route, Frequency [...] of Pulmonary, Critical Care, and Sleep Medicine [address] [place] [address], [address], [place] [address] Critical Care Progress Note Assessment & Plan [...] Compared to previous outside study report from [facility] on 08/05/2024, Mitral and tricuspid regurgitation [...] unit or at the nursing station [facility] floor where the patient is [...] Case IDs Date Procedure Surgeon Location Status [id number] 11/05/24 LEFT BELOW KNEE AMPUTATION Dallas Camejo [...] ruled out. This report was generated using MyWerx dictation software. Although every attempt has been [...] included. Coverage for Dr. Mtz [facility] ID Progress Note Name: Blas Genao Age: [...] faecium -10/27: Left foot wound culture at [facility]: MRSA, Enterococcus faecalis, VRE, Corynebacterium species and [...] Soft nontender Left BKA stump site in train conductor LABORATORY AND DIAGNOSTIC DATA: Lab and imaging [...] was performed in office at [facility] and images reviewed by orthopedic provider. Any [...] Units 5,000 Units Subcutaneous Q8H [facility] Hvaen Bach APRN HYDROmorphone (DILAUDID) tablet 2 mg [...] 5 Units 5 Units Subcutaneous TID with mealsElizabeth Verhagen, COLLISION MECHANIC 5 Units at 11/08/24 1746 ipratropium-albuterol (DUONEB) [...] not compromised This report was generated using DigitalMR Speaking dictation software. Although every attempt has been made by the provider to proofread this document, occasional misspellings and typographical errors Sign Chris Taylor MD, [facility], [facility] Infectious Diseases Available via [employer] 11/09/2024 11:55 AM * Deep Bales, PharmD [...] included. [facility] PROGRESS NOTE Outpatient Dye Worker: Dye Worker at [facility] in [place] Assessment & Plan Assessment Blas Genao is [...] IVPB-MBP 2 g, IV, Q8H Stopped, 11/09 0754 buPROPion (WELLBUTRIN SR) 12 hr tablet 150 [...] by 8 bpm Confirmed by MD Claude, [facility] ([id number]) on 11/07/2024 6:25:53 PM ECHO: [...] Compared to previous outside study report from [facility] on 08/05/2024, Mitral and tricuspid regurgitation were not previously reported. Recommend transesophageal echocardiogram if clinically indicated. All additional appropriate imaging studies within the past 24 hours reviewed - images reviewed and independently interpreted. Sign Gema Jane APRN [facility] [place] 11/09/2024 9:00 AM * Roberto Carranza PTA - 11/09/2024 8:40 AM EST Physical Therapy Progress Note Precautions/Restrictions: fall, isolation: contact, pacemaker, other (see comments) (NWB LLE; Skin) Assessment Summary: Patient seen for PT follow up. Performed bed mobility, transfers and sidesteps this session. Required Ax2 for mobility. Adjusted nutmegger for optimal fit and protection of residual limb. Per orders patient is to have train conductor on AAT, noted that residual limb was wrapped with srinivas wrap vs train conductor. Reached out to orthopedic PA in regards to train conductor for patient. Patient is motivated to participate [...] level of independence with functional mobility. Current [facility] Basic Mobility Score: 14 Rehab Plan [...] Progressive Mobility Progressive Mobility Level Achieved Standing [facility] Basic Mobility Turning from your back [...] Climbing 3-5 steps with a railing? 1 [facility] Basic Mobility Score 14 Therapy Assessment/Plan [...] 1, PT) goal ongoing Sign: Roberto Carranza, HOUSEMAID Associated attestation - Abhinav Pope, PT - [...] level of independence with self-care tasks. Current [facility] Daily Activity Score: 15 Precautions/Restrictions: fall, [...] need to get stronger. Flowsheet Data 11/09/24 0823 OT Time and Intention OT Follow-Up Visit [...] Progressive Mobility Level Achieved Edge of Bed [facility] Daily Activity Putting on and taking off Lower Body Clothing? 2 Bathing (including washing/rinsing/drying)? 2 Toileting (includes using toilet, bedpan, or urinal)? 1 Putting on and taking off upper body clothing? 3 Taking care of personal grooming such as brushing teeth? 3 Eating meals? 4 [facility] Daily Activity Score 15 Therapy Assessment/Plan [...] OT goal 1 Transfer Goal 1 (OT) [place] Level/Cues Needed (Transfer Goal 1, OT) minimum [...] Pulmonary, Critical Care, and Sleep Medicine [address], [address], [place] [address] Critical Care Progress Note Assessment & Plan [...] Compared to previous outside study report from [facility] on 08/05/2024, Mitral and tricuspid regurgitation [...] unit or at the nursing station [facility] floor where the patient is [...] Case IDs Date Procedure Surgeon Location Status [id number] 11/05/24 LEFT BELOW KNEE AMPUTATION [place] Camejo [...] ruled out. This report was generated using DigitalMR Speaking dictation software. Although every attempt has [...] included. Coverage for Dr. Mtz [facility] ID Progress Note Name: Blas Genao Age: [...] faecium -10/27: Left foot wound culture at [facility]: MRSA, Enterococcus faecalis, VRE, Corynebacterium species and [...] nontender Extremities: Left BKA site-> No drain. City Jailer in place LABORATORY AND DIAGNOSTIC DATA: Lab [...] was performed in office at [facility] and images reviewed by orthopedic provider. Any [...] Tube Oral Q15 Min PRN Kayla Orona, COLLISION MECHANIC Or glucose (GLUTOSE 15) 40 % oral gel 75 g 2 Tube Oral Q15 Min PRN Kayla Orona, COLLISION MECHANIC Or dextrose 50 % solution 12.5 g 12.5 g Intravenous Q15 Min PRN Kayla Orona, COLLISION MECHANIC Or dextrose 50 % solution 25 g 25 g Intravenous Q15 Min PRN Kayla Orona, COLLISION MECHANIC Or glucagon (GLUCAGEN) injection 1 mg 1 [...] not compromised This report was generated using DigitalMR Speaking dictation software. Although every attempt has been made by the provider to proofread this document, occasional misspellings and typographical errors Sign Chris Taylor MD, FIDSA, FACP [facility] Infectious Diseases Available via [employer] 11/08/2024 10:02 AM * Dallas Camejo MD - 11/08/2024 9:46 AM EST Blas's clinical progress and CP decompensation noted. Appreciate Medical management and CT recommendations. Drain out, wound clean, and City Jailer in place. Will continue to follow. * Gema Dumont SHUBHAM Jane - 11/08/2024 9:38 AM EST Images from the original note were not included. [facility] CARDIOLOGY PROGRESS NOTE Outpatient Dye Worker: Dye Worker at [facility] in [place] Assessment & Plan Assessment Blas Genao is [...] Results from last 7 days Lab Units 02/10/25 0005 11/07/24 0813 11/06/24 0458 11/04/24 1119 [...] by 8 bpm Confirmed by MD Claude, [facility] ([id number]) on 11/07/2024 6:25:53 PM ECHO: [...] Compared to previous outside study report from [facility] on 08/05/2024, Mitral and tricuspid regurgitation were not previously reported. Recommend transesophageal echocardiogram if clinically indicated. All additional appropriate imaging studies within the past 24 hours reviewed - images reviewed and independently interpreted. Sign Gema Jane APRN [facility] [place] 11/08/2024 9:38 AM * Shay Martin MD - 11/08/2024 7:40 AM EST Images from the original note were not included. Division of Pulmonary, Critical Care, and Sleep Medicine [address], [address], [place] [address] Critical Care Progress Note Assessment & Plan [...] Resp: Continue rescue BiPAP support Follow-up ABG 7. Continue diuresis DuoNeb as needed CV: Continue [...] Compared to previous outside study report from [facility] on 08/05/2024, Mitral and tricuspid regurgitation [...] Case IDs Date Procedure Surgeon Location Status [id number] 11/05/24 LEFT BELOW KNEE AMPUTATION Dallas Caemjo MD [facility] OR Comp Medications: Medication/MAR [...] with meals Given, 2 Units at 11/07 165 insulin lispro (HumaLOG/ADMELOG) 100 units/mL injection [...] ruled out. This report was generated using MyWerx dictation software. Although every attempt has been [...] left lower extremity, continue LLE nutmegger and train conductor. - skin checks to LLE bid - [...] CPAP 15L, sats drop when removed LLE: nutmegger/train conductor in place. Thigh soft Labs: Recent Labs [...] included. Coverage for Dr. Mtz [facility] ID Progress Note Name: Blas Genao Age: [...] 11/05 -10/27: Left foot wound culture at [facility]: MRSA, Enterococcus faecalis, VRE, Corynebacterium species and [...] -Ceftaroline, 11/05 Plan: Patient was upgraded to [place] 11 stepdown secondary to increased oxygen requirement, [...] was performed in office at [facility] and images reviewed by orthopedic provider. Any [...] mg 975 mg Oral Q6H [facility] POOJA De Souza 975 mg at 11/07/24 0814 amiODARONE (PACERONE) tablet 200 mg 200 mg Oral BID POOJA De Souza 200 mg at 11/07/24 0817 amLODIPine (NORVASC) tablet 10 mg 10 mg Oral Daily POOJA De Souza 10 mg at 11/07/24 0817 aspirin enteric coated (ECOTRIN LOW STRENGTH) tablet 81 mg 81 mg Oral Q12H [facility] POOJA De Souza81 mg at 11/07/24 [...] 500 mg Oral Daily with breakfast POOJA Arisa 500 mg at 11/04/24 0756 methocarbamol (ROBAXIN) [...] Oral TID POOJA Velasquez-Annemarie 150 mg at 8 senna (SENOKOT) tablet 2 tablet 2 tablet Oral Nightly POOJA De Souza 2 tablet at 11/06/242107 senna-docusate (SENNA-S) 8.6-50 MG tablet 2 tablet 2 tablet Oral BID POOJA De Souza 2 tablet at 11/07/24 08 sodium chloride (NS) 0.9 % infusion - [...] not compromised This report was generated using [employer] Naturally Speaking dictation software. Although every attempt has been made by the provider to proofread this document, occasional misspellings and typographical errors Sign Chris Taylor MD, FID, [facility] Infectious Diseases Available via [employer] 11/07/2024 11:30 AM * Lei Diaz MD [...] Smoker Stage 3a chronic kidney disease (CKD) ([facility]) Past Surgical History: Procedure Laterality [...] Surgeon: Dallas Camejo MD; Location: [facility] OR; Service: Orthopaedics; Laterality: Left; FOOT SURGERY Right x5 INCISION AND DRAINAGE FOOT Left OH PROCEDURE MAZE AFIB OSTECTOMY CALCANEOUS Left 09/10/2024 Procedure: ANKLE PARTIAL CALCANECTOMY; Surgeon: Dallas Camejo MD; Location: [facility] OR; Service: Orthopaedics; Laterality: Left; wOUND [...] (two) times a day. Continuous Glucose Sensor (Deck App TechnologiesStyle Wallace 3 Sensor) [facility] INJECT 1 DEVICE INTO THE SKIN EVERY [...] mg, PO, BID Given, 50 mg at 02/09 0817 multivitamin with minerals tablet 1 tablet 1 [...] 346 430 . Recent Labs 11/05/24 0712 02/0845711/07/24812 NA 130* 131* 129* K 3.4 3.8 3.9 CO2 19* 20* 22 CL 96* 99 94* BUN 47* 48* 47* CREAT 2.0* 1.7* 1.5* CALCIUM 7.9* 7.8* 8.3* MG -- 2.5 2.3 PHOS -- 5.1* 4.3 . Recent Labs 11/05/24711 INR 1.3 . Recent Labs 11/05/2471111/07/24 08 CKTOTAL 49 -- PROBNP -- 3,427* . [...] to prior. Interpreted by: Roberto Tolbert MD Police Superintendent Sign: Lei iDaz MD 11/07/2024 11:05 AM * Laura Blanco, [...] from the original note were not included. [facility] MEDICINE PROGRESS NOTE Assessment Mr. [...] evaled started BiPap rescuse and [facility]. Plan Principal Problem: Acute osteomyelitis of left [...] Diet Diabetic/ Calorie Controlled; Carb Counting 60g/meal 6719-4834 kcal DVT Px: SCDs - RIGHT (Knee High) Status: Full Code Consults placed: Procedures Inpatient consult to Internal Medicine Inpatient consult to Infectious Diseases (Specify provider ) Inpatient consult to Social Work Inpatient consult to Anesthesiology Inpatient consult to cardiology ([facility]) Inpatient consult to cardiac surgery Inpatient [...] Case IDs Date Procedure Surgeon Location Status [id number] 11/05/24 LEFT BELOW KNEE AMPUTATION Dallas Camejo MD [facility] OR Comp Plan WB Status: NWB left lower extremity. Kick Plate Installer stump train conductor in place. Appreciate PT and OT recommendations. [...] oriented. LE: Dressing clean, dry, and intact. Kick Plate Installer stump train conductor in place. Labs: Recent Labs 11/05/24 0712 [...] and sedation. Deep Bales, PharmD * Jessica Daily, PT - 11/06/2024 11:42 AM EST Physical [...] level of independence with functional mobility. Baseline [facility] Basic Mobility Score: 24 Current [facility] Basic Mobility Score: 16 Objective Data [...] History Past Medical History: Diagnosis Date A-fib ([facility]) Acute osteomyelitis ([facility]) Atrial flutter ([facility]) Cardiac pacemaker 2016 Carotid atherosclerosis Charcot's joint of right foot 2015 Chronic sciatica Complete AV block ([facility]) Diabetes mellitus ([facility]) TYPE II Diabetic foot ulcer ([facility]) ED (erectile dysfunction) Edema ESBL (extended spectrum beta-lactamase) producing bacteria infection GERD (gastroesophageal reflux disease) GI bleed Hyperlipidemia Hypertension Leukocytosis Metabolic bone disease Multiple drug resistant organism (MDRO) culture positive Non healing left heel wound Obesity Osteoarthrosis Osteomyelitis of both feet ([facility]) PAD (peripheral artery disease) ([facility]) Primary osteoarthritis of knee Proteinuria Renal osteodystrophy Restless legs syndrome (RLS) no meds, lyrica helps Septic joint of left knee joint ([facility]) Sleep apnea BiPap Smoker Stage 3a chronic kidney disease (CKD) ([facility]) Past Surgical History: Procedure Laterality [...] WOUND VAC; Surgeon: Dallas Camejo MD; Location: [facility] OR; Service: Orthopaedics; Laterality: Left; FOOT SURGERY Right x5 INCISION AND DRAINAGE FOOT Left [place] PROCEDURE MAZE AFIB OSTECTOMY CALCANEOUS Left 09/10/2024 Procedure: ANKLE PARTIAL CALCANECTOMY; Surgeon: Dallas Camejo MD; Location: [facility] OR; Service: Orthopaedics; Laterality: Left; wOUND [...] Progressive Mobility Level Achieved Transferring to Chair [facility] Basic Mobility Turning from your back [...] Climbing 3-5 steps with a railing? 1 [facility] Basic Mobility Score 16 Therapy Assessment/Plan [...] PT goal 1 Transfer Goal 1 (PT) [place] Level/Cues Needed (Transfer Goal 1, PT) supervision required Time Frame (Transfer Goal 1, PT) 1 week Activity/Assistive Device (Transfer Goal 1, PT) qwn-sg-rvsrw/yjqjj-io-jsr;rtb-oe-vyufa/skdpy-kz-ict;wheelchair transfer;walker, rolling Gait Training Goal 1 (PT) Time Frame (Gait Training Goal 1, PT) 1 week [place] Level (Gait Training Goal 1, PT) supervision required Activity/Assistive Device (Gait Training Goal 1, PT) gait (walking locomotion);assistive device use;maintain weight-bearing status;increase energy conservation;increase endurance/gait distance;walker, rolling Distance (Gait Training Goal 1, PT) 20 Wheelchair Locomotion Goal 1 (PT) [place] Level/Cues Needed (Wheelchair Locomotion Goal 1, PT) supervision required Time Frame (Wheelchair Locomotion Goal 1, PT) 1 week Activity (Wheelchair Locomotion Goal 1, PT) wheelchair mobility skills, all Distance Goal 1 (Wheelchair Locomotion, PT) 200 Sign: Jessica Daily PT * Chris Taylor MD - 11/06/2024 10:58 AM EST Images from the original note were not included. Coverage for Dr. Mtz [facility] ID Progress Note Name: Blas Genao Age: [...] amputation -10/27: Left foot wound culture at [facility]: MRSA, Enterococcus faecalis, VRE, Corynebacterium species and [...] was performed in office at [facility] and images reviewed by orthopedic provider. Any [...] mg 975 mg Oral Q6H [facility] POOJA De Souza 975 mg at [...] not compromised This report was generated using DigitalMR Speaking dictation software. Although every attempt has been made by the provider to proofread this document, occasional misspellings and typographical errors Sign Chris Taylor MD, FID, [facility] Infectious Diseases Available via [employer] 11/06/2024 10:58 AM * Adama Prasad APRN [...] bumex PO 2mg daily). Continue telemetry Outpatient profile stitching machine operator: Lauren Carlos yovany [place] Subjective/24 hour Events C/o significant pain. No [...] Continuous Glucose Sensor (FreeStyle Wallace 3 Sensor) [facility] INJECT 1 DEVICE INTO THE SKIN EVERY [...] PO, BID Given, 150 mg at 11/06 0907 senna (SENOKOT) tablet 2 tablet 2 tablet, [...] Compared to previous outside study report from [facility] on 08/05/2024, Mitral and tricuspid regurgitation [...] software and direct typing. Please excuse inadvertent nutritionist public health and typing errors. Sign Adama Prasad APRN [...] Case IDs Date Procedure Surgeon Location Status [id number] 11/05/24 LEFT BELOW KNEE AMPUTATION Dallas Camejo MD [facility] OR Comp Plan Multimodal pain management DVT Prophylaxis: ASA 81mg PO BID Weight Bearing Status: NWB PT/OOB HV in place scant output overnight, will discuss with Dr. Camejo Appreciate Medicine, ID and Cardiology recs: for medical comanagement []TATIANNA pending []Blood Cultures Currently on Dapto, Ceftaroline Kick Plate Installer Stump train conductor ordered Subjective No complaints. No CP,SOB,N/V. Pain [...] from the original note were not included. [facility] MEDICINE PROGRESS NOTE Assessment Mr. [...] without problems. Last drink day before admission [facility] protocol ordered Diet: Diet Diabetic/ Calorie Controlled; Carb Counting 60g/meal 9236-5885 kcal DVT Px: SCDs - RIGHT (Knee High) Status: Full Code Consults placed: Procedures Inpatient consult to Internal Medicine Inpatient consult to Infectious Diseases (Specify provider ) Inpatient consult to Social Work Inpatient consult to Anesthesiology Inpatient consult to cardiology ([facility]) Inpatient consult to cardiac surgery Inpatient [...] Case IDs Date Procedure Surgeon Location Status [id number] 11/05/24 LEFT BELOW KNEE AMPUTATION Dallas Camejo MD [facility] WB status: NWB LLE Postop antibiotics: [...] from the original note were not included. [facility] CARDIOLOGY SERVICE CONSULT Date of Consult: 11/05/2024 Patient's Primary Care Physician: Lee Fabian MD Physician Requesting Consult: Orthopedic surgery Primary Dye Worker: Dye Worker at [facility] Reason for Consultation: Preop Admit Date: [...] TATIANNA first is not going to change analyst. Leg wounds are like the source that [...] mellitus (HCC) TYPE II Diabetic foot ulcer ([facility]) ED (erectile dysfunction) Edema ESBL (extended spectrum beta-lactamase) producing bacteria infection GERD (gastroesophageal reflux disease) GI bleed Hyperlipidemia Hypertension Leukocytosis Metabolic bone disease Multiple drug resistant organism (MDRO) culture positive Non healing left heel wound Obesity Osteoarthrosis Osteomyelitis of both feet (HCC) PAD (peripheral artery disease) ([facility]) Primary osteoarthritis of knee Proteinuria Renal osteodystrophy Restless legs syndrome (RLS) no meds, lyrica helps Septic joint of left knee joint ([facility]) Sleep apnea BiPap Smoker Stage 3a chronic kidney disease (CKD) ([facility]) Reviewed Past Surgical History: Procedure [...] Continuous Glucose Sensor (FreeStyle Wallace 3 Sensor) [facility] INJECT 1 DEVICE INTO THE SKIN EVERY [...] 9 bpm Confirmed by MD Danya, Deep ([id number]) on 11/03/2024 4:30:25 PM Echocardiogram (TTE) Comprehensive [...] Compared to previous outside study report from [facility] on 08/05/2024, Mitral and tricuspid regurgitation were not previously reported. Recommend transesophageal echocardiogram if clinically indicated. All additional appropriate imaging studies within the past 24 hours reviewed - images reviewed and independently interpreted. Sign: Nitish Tracy MD [facility] [place] 11/05/2024 2:43 PM * Hilda Alvarado RN - 11/05/2024 1:36 PM EST Images from the original note were not included. * Hilda Alvarado RN - 11/05/2024 1:00 PM EST Attending Anesthesiologist (KF) monitoring and aware of vitals during duration of block procedure. * Ena Mtz MD - 11/05/2024 9:42 AM EST Images from the original note were not included. [facility] INFECTIOUS DISEASE Consult progress Note Name: Blas [...] faecium 10/27: Left foot wound culture at [facility]: MRSA, Enterococcus faecalis, VRE, Corynebacterium speciesand gram-negative [...] Ena Mtz MD, FACP, CWSP [facility] Infectious Diseases Available via [employer] SUBJECTIVE Tmax 102.3 ??F Fevers overnight [...] OUT Peripheral IV - Single Lumen (Adult) 11/03/242099 cephalic vein (lateral side of arm), left [...] not compromised. This report was generated using DigitalMR Speaking dictation software. Although every attempt has [...] from the original note were not included. [facility] MEDICINE PROGRESS NOTE Assessment Mr. [...] consult to Anesthesiology Inpatient consult to cardiology ([facility]) Barriers for discharge: IV antibiotics, fevers, [...] Juany Ospina RN - 11/04/2024 9:20 AM CINDYumflorentinoy: Nurse navigator note Initial Ortho Trauma Nurse [...] request it: Integrative Medicine Services available at [facility], including, Massage Therapy, and Reiki/Energy Therapy Social Work Spiritual Care Pharmacist Nutrition Patient declined resources at this time. Demographic Screening: Medical insurance - Medicare Gas Pump Attendant involvement - No. Worker's compensation - No [...] staff will identify along with patient a contact assembler to provide updates. Interventions Provided and reviewed [...] included. Coverage for Dr. Mtz [facility] ID Progress Note Name: Blas Geano Age: [...] ostectomy. -10/27: Left foot wound culture at [facility]: MRSA, Enterococcus faecalis, VRE, Corynebacterium species and [...] was performed in office at [facility] and images reviewed by orthopedic provider. Any findings are documented within ambulatory encounter note on date of service. Current Medications: Current Facility-Administered Medications Medication Dose Route Frequency Provider Last Rate Last Admin lactated ringers (LR) infusion 100 mL/hr Intravenous Continuous POOJA Akers acetaminophen (TYLENOL) tablet 975 mg 975 mg Oral Q6H [facility] POOJA Arias 975 mg at 11/04/24 [...] BID POOJA Arias 150 mg at 11/04/24 6026 senna (SENOKOT) tablet 2 tablet 2 tablet Oral Nightly POOJA Arias 2 tablet at 11/03/24 4840 ALLERGIES: Allergies Allergen Reactions Lisinopril Other (See [...] not compromised This report was generated using DigitalMR Speaking dictation software. Although every attempt has been made by the provider to proofread this document, occasional misspellings and typographical errors Sign Chris Taylor MD, FID, [facility] Infectious Diseases Available via [employer] 11/04/2024 9:13 AM * Juaquin Kern MD [...] Diet Diabetic/ Calorie Controlled; Carb Counting 60g/meal 5743-9167 kcal Diet NPO; Meds DVT Px: SCDs - Bilateral (Knee High) Status: Full Code Consults placed: Procedures Inpatient consult to Internal Medicine Inpatient consult to Infectious Diseases (Specify provider ) Inpatient consult to Social Work Inpatient consult to Anesthesiology Inpatient consult to cardiology ([facility]) Barriers for discharge: IV antibiotics, fevers, [...] booked: case request and [facility] OR front tender notified [x]Abx regeneration operator to OR (2g ancef) []Pre-Op Noes to [...] Home alone Current Living Arrangements home (1-level, [facility]) Primary Care Provided by self Provides Primary [...] or living in a prison (including now)? N Food Insecurity Within the [...] In the past 12 months has the [employer], gas, oil, or water [employer] threatened to shut off services in your [...] 30 days Current Outpatient/Agency/Support Group homecare agency ([facility] - SN 3 weekly (wound care) & CONTACT ASSEMBLER x 2 weekly) Concerns to be Addressed home safety;discharge planning Patient/Family Anticipates Transition to home with help/services;inpatient rehabilitation facility Patient/Family Anticipated Services at [place] health care;[place] [facility];other (see comments) (inpatient rehab) Transportation Anticipated family or friend will provide;health plan transportation Current Discharge Risk physical impairment;lives alone;dependent with mobility/activities of daily living;chronically ill Discharge Coordination/Tasks Status Post Discharge Needs/Treatments PT;OT;Wound Care;Jail Home Visit 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 [facility] MEDICINE PROGRESS NOTE Assessment Mr. [...] Diet Diabetic/ Calorie Controlled; Carb Counting 60g/meal 6763-8071 kcal DVT Px: SCDs Status: Full Code [...] []CMG conslt []ID consult []PICC line (ordered) []Kick Plate Installer clinic: pre-amputation education/fitting []Blood cultures: pending []Dressing [...] Patient arrived around 1800 this evening to [place] [address] in no acute distress. Placed on contact [...] Time: 12:44 PM Source Note - POOJA Airas - 11/02/2024 6:34 PM EST Admission H&P [...] PAD, RLS and CKD with presents to [facility] inpatient floor for known left calc osteomyelitis [...] (she has seen patient in the past) -Kick Plate Installer to be called for pre-amputation education/fitting in [...] PAD, RLS and CKD3 that presents to [facility] inpatient floor as a direct admit under [...] Objective Past Medical History: Diagnosis Date A-fib ([facility]) Acute osteomyelitis ([facility]) Atrial flutter ([facility]) Cardiac pacemaker 2016 Carotid atherosclerosis Charcot's joint of right foot 2015 Chronic sciatica Complete AV block ([facility]) Diabetes mellitus ([facility]) TYPE II Diabetic foot ulcer ([facility]) ED (erectile dysfunction) Edema ESBL (extended spectrum beta-lactamase) producing bacteria infection GERD (gastroesophageal reflux disease) GI bleed Hyperlipidemia Hypertension Leukocytosis Metabolic bone disease Multiple drug resistant organism (MDRO) culture positive Non healing left heel wound Obesity Osteoarthrosis Osteomyelitis of both feet ([facility]) PAD (peripheral artery disease) ([facility]) Primary osteoarthritis of knee Proteinuria Renal osteodystrophy Restless legs syndrome (RLS) no meds, lyrica helps Septic joint of left knee joint ([facility]) Sleep apnea BiPap Smoker Stage 3a chronic kidney disease (CKD) ([facility]) Past Surgical History: Procedure Laterality [...] WOUND VAC; Surgeon: Dallas Camejo MD; Location: [facility] OR; Service: Orthopaedics; Laterality: Left; FOOT SURGERY Right x5 INCISION AND DRAINAGE FOOT Left [place] PROCEDURE MAZE AFIB OSTECTOMY CALCANEOUS Left 09/10/2024 Procedure: ANKLE PARTIAL CALCANECTOMY; Surgeon: Dallas Camejo MD; Location: [facility]; Service: Orthopaedics; Laterality: Left; wOUND [...] Continuous Glucose Sensor (FreeStyle Wallace 3 Sensor) [facility] INJECT 1 DEVICE INTO THE SKIN EVERY [...] mg 975 mg, PO, Q6H [facility] Ordered amiODARONE (PACERONE) tablet 200 mg [...] PAD, RLS and CKD with presents to [facility] inpatient floor for known left calc osteomyelitis [...] (she has seen patient in the past) -Kick Plate Installer to be called for pre-amputation education/fitting in [...] PAD, RLS and CKD3 that presents to [facility] inpatient floor as a direct admit under [...] Objective Past Medical History: Diagnosis Date A-fib ([facility]) Acute osteomyelitis ([facility]) Atrial flutter ([facility]) Cardiac pacemaker 2016 Carotid atherosclerosis Charcot's joint of right foot 2015 Chronic sciatica Complete AV block ([facility]) Diabetes mellitus ([facility]) TYPE II Diabetic foot ulcer ([facility]) ED (erectile dysfunction) Edema ESBL (extended spectrum beta-lactamase) producing bacteria infection GERD (gastroesophageal reflux disease) GI bleed Hyperlipidemia Hypertension Leukocytosis Metabolic bone disease Multiple drug resistant organism (MDRO) culture positive Non healing left heel wound Obesity Osteoarthrosis Osteomyelitis of both feet ([facility]) PAD (peripheral artery disease) ([facility]) Primary osteoarthritis of knee Proteinuria Renal osteodystrophy Restless legs syndrome (RLS) no meds, lyrica helps Septic joint of left knee joint ([facility]) Sleep apnea BiPap Smoker Stage 3a chronic kidney disease (CKD) ([facility]) Past Surgical History: Procedure Laterality Date AMPUTATION Right 2017 TMA AORTOGRAM- ABDOMINAL Left 09/15/2024 Procedure: LEFT LOWER EXTREMITY ANGIOGRAM; Surgeon: Delbert Mcintosh MD; Location: [facility] OR; Service: Peripheral Vascular; Laterality: Left; BARIATRIC SURGERY 2018 CARDIAC ELECTROPHYSIOLOGY STUDY AND ABLATION x5 CARDIAC PACEMAKER PLACEMENT 2016 CARDIAC SURGERY 2020 watchman device CARDIOVERSION 07/2024 CC PERIPHERAL ANGIOGRAPHY Left 07/2024 LE CHANGE DRESSING WOUND VAC Left 09/10/2024 Procedure: APPLICATION OF WOUND VAC; Surgeon: Dallas Camejo MD; Location: [facility] OR; Service: Orthopaedics; Laterality: Left; FOOT SURGERY Right x5 INCISION AND DRAINAGE FOOT Left [place] PROCEDURE MAZE AFIB OSTECTOMY CALCANEOUS Left 09/10/2024 Procedure: ANKLE PARTIAL CALCANECTOMY; Surgeon: Dallas Camejo MD; Location: [facility] OR; Service: Orthopaedics; Laterality: Left; wOUND [...] Continuous Glucose Sensor (FreeStyle Wallace 3 Sensor) [facility] INJECT 1 DEVICE INTO THE SKIN EVERY [...] to verify the correct patient, procedure, equipment, mission support specialist and site/side marked as required. [...] Representatives. HCR- Blas and Jessica. Copy in [place]. SW to f/u with pt this afternoon. Addendum: 1:30pm SW met with pt today for support. Blas was sitting in his chair, open to visit. Very social and pleasant. Very future oriented with the hopes of a return to work, if he chooses based on his recovery. 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 He is anticipating rehab in a [...] meets clinical indications for proline placement for emt intermediate antibiotics in the setting of osteomyelitis and [...] guidelines to the screening nurse at ext: [id number] Please direct any questions regarding procedure time/ date to the specific imaging modality: US: ext: [id number] CT: ext: [id number] Fluoroscopy: ext: [id number] IR: ext: [id number] Consent: The patient is able to give [...] injection 5,000 Units On hold since Fri11/16/2024 [id number] until manually unheld; held by Herberth Whitmore [...] PO, Daily Given, 200 mg at 11/19 102 PRN Medication Ordered Dose/Rate, Route, Frequency Last [...] at 1.8mg/dL - regarding the question of shelter PICC for Abx. This patient is high [...] History Past Medical History: Diagnosis Date A-fib ([facility]) Acute osteomyelitis ([facility]) Atrial flutter ([facility]) Cardiac pacemaker 2016 Carotid atherosclerosis Charcot's joint of right foot 2015 Chronic sciatica Complete AV block ([facility]) Diabetes mellitus ([facility]) TYPE II Diabetic foot ulcer ([facility]) ED (erectile dysfunction) Edema ESBL (extended spectrum beta-lactamase) producing bacteria infection GERD (gastroesophageal reflux disease) GI bleed Hyperlipidemia Hypertension Leukocytosis Metabolic bone disease Multiple drug resistant organism (MDRO) culture positive Non healing left heel wound Obesity Osteoarthrosis Osteomyelitis of both feet ([facility]) PAD (peripheral artery disease) Primary osteoarthritis of knee Proteinuria Renal osteodystrophy Restless legs syndrome (RLS) no meds, lyrica helps Septic joint of left knee joint ([facility]) Sleep apnea BiPap Smoker Stage 3a chronic kidney disease (CKD) ([facility]) Past Surgical History: Procedure Laterality Date AMPUTATION Right 2018 TMA AMPUTATION BELOW KNEE Left 11/05/2024 Procedure: LEFT BELOW KNEE AMPUTATION; Surgeon: Dallas Camejo MD; Location: [facility] OR; Service: Orthopaedics; Laterality: Left; AORTOGRAM- ABDOMINAL Left 09/15/2024 Procedure: LEFT LOWER EXTREMITY ANGIOGRAM; Surgeon: Delbert Mcintosh MD; Location: [facility] OR; Service: Peripheral Vascular; Laterality: Left; BARIATRIC SURGERY 2018 CARDIAC ELECTROPHYSIOLOGY STUDY AND ABLATION x5 CARDIAC PACEMAKER PLACEMENT 2016 CARDIAC SURGERY 2020 watchman device CARDIOVERSION 07/2024 CC PERIPHERAL ANGIOGRAPHY Left 07/2024 LE CHANGE DRESSING WOUND VAC Left 09/10/2024 Procedure: APPLICATION OF WOUND VAC; Surgeon: Dallas Camejo MD; Location: [facility] OR; Service: Orthopaedics; Laterality: Left; EXTRACTION LEAD(S) LASER FROM DUAL PM SYSTEM Left 11/17/2024 Procedure: Extraction lead(s) laser from dual PM system; 95588; Surgeon: Rui Pabon MD; [facility]; Service: Electrophysiology; Laterality: Left; FOOT SURGERY Right x5 INCISION AND DRAINAGE FOOT Left INSERT/REPLACE LEADLESS PACEMAKER N/A 11/17/2024 Procedure: Micra Leadless Pacemaker Insert/Replacement; 80066; Surgeon: Rui Pabon MD; [facility]; Service: Electrophysiology; Laterality: N/A; [place] PROCEDURE MAZE AFIB OSTECTOMY CALCANEOUS Left 09/10/2024 Procedure: ANKLE PARTIAL CALCANECTOMY; Surgeon: Dallas Camejo MD; Location: [facility]; Service: Orthopaedics; Laterality: Left; wOUND [...] (two) times a day. Continuous Glucose Sensor ([employer] TechnologiesStyle Wallace 3 Sensor) Mis INJECT 1 DEVICE INTO THE SKIN EVERY [...] injection 5,000 Units On hold since Fri11/16/2024 [id number] until manually unheld; held by Herberth Whitmore [...] with meals Given, 3 Units at 11/18 173 methocarbamol (ROBAXIN) tablet 1,000 mg 1,000 [...] found for: TACROLIMUS No results found for: [id number] , TOTVOL , CRCLR , PERIOD No [...] Sign: Anmol Reynoso MD 11/19/2024 10:09 AM [facility] Nephrology Office [phone] * Gilda May RN - 11/12/2024 3:31 PM EST [facility] Wound Care Consult Visit Date: 11/12/2024 Patient Name: Blas Genao Date of : 1960 Reason for Consult: initial Wound Team Summary Assessment: 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 Had been using [...] 1500 Number of days: 9 Gilda May SUB ARC OPERATOR, CWCN 11/12/2024 3:31 PM * Janice [...] nighttime disruptions as medically appropriate. Maintain regular [id number] including appropriate lighting in the room. Consider [...] limb. Per orders patient is to have train conductor on AAT, noted that residual limb was wrapped with srinivas wrap vs train conductor. Reached out to orthopedic PA in regards to train conductor for patient. Patient is motivated to participate [...] W/C, EMS transport and home PT. Current [facility] Basic Mobility Score: 14 OT 11/09 [...] with strength, balance and activity tolerance. Current [facility] Daily Activity Score: 15 Outcomes score [facility] The Activity Measure for Post-Acute Care [...] KNEE AMPUTATION; Surgeon: Dallas Camejo MD; Location: [facility] OR; Service: Orthopaedics; Laterality: Left; AORTOGRAM- [...] WOUND VAC; Surgeon: Dallas Camejo MD; Location: [facility] OR; Service: Orthopaedics; Laterality: Left; FOOT SURGERY Right x5 INCISION AND DRAINAGE FOOT Left OH PROCEDURE MAZE AFIB OSTECTOMY CALCANEOUS Left 09/10/2024 Procedure: ANKLE PARTIAL CALCANECTOMY; Surgeon: Dallas Camejo MD; Location: [facility] OR; Service: Orthopaedics; Laterality: Left; wOUND [...] (two) times a day. Continuous Glucose Sensor (De[employer] App TechnologiesStyle Wallace 3 Sensor) [facility] INJECT 1 DEVICE INTO THE SKIN EVERY [...] amputation. 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 He typically has an egg sandwich for [...] - 2600 Kcals/day (20 - 25 Kcals/kg) Coffeen: RMR (Coffeen-St. Jeor Equation): 1920.63 Coffeen-St. Jeor (Considerations): 2699-0012 kcal (MSJ +1.2-1.3) based on 104 kg (229 lb 4.5 oz) (reported dry weight) Protein Needs: 117 - 141 gm, (1.5 - 1.8g/kg) based on 78.1 kg (172 lb 2.9 oz) (Adjusted IBW) Fluids: 2500ml based on Estimated/Assessed Carbohydrates Needs: 75 g CHO/meal Current Diet: Diet Diabetic/ Calorie Controlled; Carb Counting 60g/meal 6351-3426 kcal; 2 gm NA (Low Sodium); 2 [...] Compared to previous outside study report from [facility] on 08/05/2024, Mitral and tricuspid regurgitation [...] Smoker Stage 3a chronic kidney disease (CKD) ([facility]) Past Surgical History: Procedure Laterality Date AMPUTATION Right 2017 TMA AMPUTATION BELOW KNEE Left 11/05/2024 Procedure: LEFT BELOW KNEE AMPUTATION; Surgeon: Dallas Camejo MD; Location: [facility]; Service: Orthopaedics; Laterality: Left; AORTOGRAM- ABDOMINAL Left 09/15/2024 Procedure: LEFT LOWER EXTREMITY ANGIOGRAM; Surgeon: Delbert Mcintosh MD; Location: [facility]; Service: Peripheral Vascular; Laterality: Left; BARIATRIC SURGERY 2018 CARDIAC ELECTROPHYSIOLOGY STUDY AND ABLATION x5 CARDIAC PACEMAKER PLACEMENT 2016 CARDIAC SURGERY 2020 watchman device CARDIOVERSION 07/2024 CC PERIPHERAL ANGIOGRAPHY Left 07/2024 LE CHANGE DRESSING WOUND VAC Left 09/10/2024 Procedure: APPLICATION OF WOUND VAC; Surgeon: Dallas Camejo MD; Location: [facility]; Service: Orthopaedics; Laterality: Left; FOOT SURGERY Right x5 INCISION AND DRAINAGE FOOT Left OH PROCEDURE MAZE AFIB OSTECTOMY CALCANEOUS Left 09/10/2024 Procedure: ANKLE PARTIAL CALCANECTOMY; Surgeon: Dallas Camejo MD; Location: [facility]; Service: Orthopaedics; Laterality: Left; wOUND [...] Continuous Glucose Sensor (FreeStyle Wallace 3 Sensor) [facility] INJECT 1 DEVICE INTO THE SKIN EVERY [...] mouth 2(two) times a day. 10/05/24 [facility]ations acetaminophen, 975 mg, Oral, Q6H [place] [...] assessment, and plan as detailed in the pattern drum maker's note with the following exceptions, clarifications, or [...] from the original note were not included. [facility] CARDIOLOGY SERVICE CONSULT Date of Consult: 11/04/2024 Patient's Primary Care Physician: Lee Fabian MD Physician Requesting Consult: Orthopedic surgery Primary Dye Worker: Dye Worker at [facility] Reason for Consultation: Preop Admit Date: [...] Objective Past Medical History: Diagnosis Date A-fib ([facility]) Acute osteomyelitis ([facility]) Atrial flutter ([facility]) Cardiac pacemaker 2016 Carotid atherosclerosis Charcot's joint of right foot 2015 Chronic sciatica Complete AV block ([facility]) Diabetes mellitus ([facility]) TYPE II Diabetic foot ulcer ([facility]) ED (erectile dysfunction) Edema ESBL (extended spectrum beta-lactamase) producing bacteria infection GERD (gastroesophageal reflux disease) GI bleed Hyperlipidemia Hypertension Leukocytosis Metabolic bone disease Multiple drug resistant organism (MDRO) culture positive Non healing left heel wound Obesity Osteoarthrosis Osteomyelitis of both feet ([facility]) PAD (peripheral artery disease) ([facility]) Primary osteoarthritis of knee Proteinuria Renal osteodystrophy Restless legs syndrome (RLS) no meds, lyrica helps Septic joint of left knee joint ([facility]) Sleep apnea BiPap Smoker Stage 3a chronic kidney disease (CKD) ([facility]) Reviewed Past Surgical History: Procedure Laterality Date AMPUTATION Right 2017 TMA AORTOGRAM- ABDOMINAL Left 09/15/2024 Procedure: LEFT LOWER EXTREMITY ANGIOGRAM; Surgeon: Delbert Mcintosh MD; Location: [facility]; Service: Peripheral Vascular; Laterality: Left; BARIATRIC SURGERY 2018 CARDIAC ELECTROPHYSIOLOGY STUDY AND ABLATION x5 CARDIAC PACEMAKER PLACEMENT 2016 CARDIAC SURGERY 2020 watchman device CARDIOVERSION 07/2024 CC PERIPHERAL ANGIOGRAPHY Left 07/2024 LE CHANGE DRESSING WOUND VAC Left 09/10/2024 Procedure: APPLICATION OF WOUND VAC; Surgeon: Dallas Camejo MD; Location: [facility] OR; Service: Orthopaedics; Laterality: Left; FOOT SURGERY Right x5 INCISION AND DRAINAGE FOOT Left [place] PROCEDURE MAZE AFIB OSTECTOMY CALCANEOUS Left 09/10/2024 Procedure: ANKLE PARTIAL CALCANECTOMY; Surgeon: Dallas Camejo MD; Location: [facility] OR; Service: Orthopaedics; Laterality: Left; wOUND [...] Continuous Glucose Sensor (FreeStyle Wallace 3 Sensor) [facility] INJECT 1 DEVICE INTO THE SKIN EVERY [...] tablet, PO, Nightly Given, 2 tablet at 11/033 Continuous Medication Ordered Dose/Rate, Route, Frequency Last [...] Units 11/04/24 1243 11/04/24 1050 11/04/24 0726 11/02/24211811/02/241999 SODIUM mmol/L -- 130* -- -- 130* [...] 9 bpm Confirmed by MD Danya, Deep ([id number]) on 11/03/2024 4:30:25 PM Echocardiogram (TTE) Comprehensive [...] Compared to previous outside study report from [facility] on 08/05/2024, Mitral and tricuspid regurgitation were not previously reported. Recommend transesophageal echocardiogram if clinically indicated. All additional appropriate imaging studies within the past 24 hours reviewed - images reviewed and independently interpreted. Sign: Nitish Tracy MD [facility] [place] 11/04/2024 3:31 PM * Hilda Almodovar [facility] - 11/04/2024 10:57 AM ESTAssociated Order(s): IP [...] and supports. Pt has been working at [employer] in [facility] up until recently. He shared he is deemed disabledunder Social Security Disability though has been working under ticket to work program. Pt states does not anticipate being able to return to his line of work and states he will get residential disability. Discussed [place] Paid Leave. Pt states [...] area. Gave pt info and literature on [facility] [employer]. Pt is familiar with this service though has not used it. He was glad to have the information. Thereis no application process for this service. Anyone 60 or older that lives within [facility]'s service area can use it and make reservations at [phone]. Pt indicates being able to facilitate rides to his CT follow ups as it's not anticipated that the TA service would bring him to [place]. He [...] Patient Psychosocial History Demographic Information Preferred Language: Romanian Preferred Name: Blas Relationship status: Single Children: Blas Genao Adult Son Legal next of kin [phone] Advance Directive Advance Directives:Advance Directives Does Patient Have Advance Directives?: yes Living Will: yes, copy requested Healthcare Switchboard And Control Room Operator: yes, copy requested Legally Authorized Switchboard And Control Room Operator Blas Genao Adult Son Legal next of kin [phone] Living Environment Household Members: pt and 3 pet cats Living Arrangements: House Does the patient have any environmental/safety concerns? No Support System Who currently provides assistance/support for the patient? Son , friends Also has homecare svs Driss KEITAA Quality of support systems? Supportive Patient provides care for: Self and Pet cats has 3 Employment/Finances/Insurance Financial Source: has been salary wages. Pt states he will be back on disability. Has been working through [employer] and will be back [...] original note were not included. [facility] INFECTIOUS DISEASE CONSULTATION Date of Consult: 11/03/2024 [...] Negative 10/27: Left foot wound culture at [facility]: MRSA, Enterococcus faecalis, VRE, Corynebacterium speciesand gram-negative [...] Protocol Orders 11/02/241942 Robert Mtz MD, FACP, [facility] Infectious Diseases Available via [employer] SUBJECTIVE HISTORY OF PRESENT ILLNESS: This is a 63 y.o. year-old male complex medical history of atrial fibrillation, cardiac pacemaker, Watchman device, diabetes type II, history of ESBL infection, peripheral vascular disease, chronic kidney disease, diabetic foot infection/osteomyelitis, status post right TMA, recent hospitalization at [facility] for left diabetic foot infection. He underwent debridement of the left foot on 08/22 and repeat debridement on 08/24. Intraoperative cultures then revealed Enterococcus, ESBL E. coli and was treated with amoxicillin, meropenem and Flagyl. Fernanda parapsilosis was thought to be a contaminant. He was admitted to [facility] and underwent left calcaneus ostectomy on [...] HISTORY: Past Medical History: Diagnosis Date A-fib ([facility]) Acute osteomyelitis ([facility]) Atrial flutter ([facility]) Cardiac pacemaker 2016 Carotid atherosclerosis Charcot's joint of right foot 2015 Chronic sciatica Complete AV block ([facility]) Diabetes mellitus ([facility]) TYPE II Diabetic foot ulcer ([facility]) ED (erectile dysfunction) Edema ESBL (extended spectrum beta-lactamase) producing bacteria infection GERD (gastroesophageal reflux disease) GI bleed Hyperlipidemia Hypertension Leukocytosis Metabolic bone disease Multiple drug resistant organism (MDRO) culture positive Non healing left heel wound Obesity Osteoarthrosis Osteomyelitis of both feet ([facility]) PAD (peripheral artery disease) ([facility]) Primary osteoarthritis of knee Proteinuria Renal osteodystrophy Restless legs syndrome (RLS) no meds, lyrica helps Septic joint of left knee joint ([facility]) Sleep apnea BiPap Smoker Stage 3a chronic kidney disease (CKD) ([facility]) PAST SURGICAL HISTORY: Past Surgical [...] WOUND VAC; Surgeon: Dallas Camejo MD; Location: [facility] OR; Service: Orthopaedics; Laterality: Left; FOOT SURGERY Right x5 INCISION AND DRAINAGE FOOT Left OH PROCEDURE MAZE AFIB OSTECTOMY CALCANEOUS Left 09/10/2024 Procedure: ANKLE PARTIAL CALCANECTOMY; Surgeon: Dallas Camejo MD; Location: [facility]; Service: Orthopaedics; Laterality: Left; wOUND [...] not compromised. This report was generated using [employer] Naturally Speaking dictation software. Although every attempt has been made by the provider to proofread this document, occasional misspellings and typographical errors may still be present. documented in this encounter Miscellaneous Notes * Plan of Care - Mitesh Caldwell RN - 11/25/2024 7:51 PM EST Patient being discharged home with home services. Patient has a proline and will require emt intermediate antibiotics. 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 He typically has an egg sandwich for [...] Aspiration precautions Diet Cardiac; Carb Counting 60g/meal 2457-1879 kcal; 2 gm NA (Low Sodium); Low [...] to be available at inpatient rehab for residential antibiotics. Call ling within reach, safety precautions [...] hospital for special care for d/c. Call lign within reach, safety precautions maintained. Nelson Iqbal 11/23/2024 7:15 PM * Plan of Care - Ellyn Patel RN - 11/23/2024 8:07 AM EST Plan of Care Reviewed With: patient Outcome Evaluation: Patient without complaints during the shift. Sleep study completed on room air.Plan is for discharge to inpatient rehab for residential antibiotics when bed is available. Ellyn Patel [...] of Care Review Outcome: Progressing Vpaced on pfcmeiq-Vfyoqmnb-lhtjtdj on IV Cubicin andIV Rocephin-Plan for PICC placement ?today for emt intermediate anti-Bx's-see flowsheet for full assessment/vs Hansa Navarro [...] from the original note were not included. [address] [address] OPERATIVE REPORT Patient Name: Blas Genao Date of : 1960 Date of Procedure: 11/17/2024 Surgeons and Role: * Rui Pabon MD - Primary * Corbin Lamb APRN - Physician Coin Machine Assembler Pre-op Diagnosis: Pacemaker infection, subsequent encounter [T82.7XXD] Post-Op Diagnosis Codes: * Pacemaker infection, subsequent encounter [T82.7XXD] Details of Procedure Procedure(s): Extraction lead(s) laser from dual PM system; 44789 Micra Leadless Pacemaker Insert/Replacement; 03097 Additional Procedures Surgeon: Rui Pabon MD Coin Machine Assembler: : : Corbin Lamb APRN Anesthesia: Monitor Anesthesia Care Indications: Bacteremia; pacemaker device infection; complete heart block Description of Procedure: After informed consent patient was brought to the OR in the fasting state. He was positioned appropriate on the table. Timeout was then performed. After timeout was completed and the plan reviewed dileepwas then intubated by anesthesia. He was maintained under general anesthesia for the remainder of the procedure. Intraoperative TATIANNA was used to visualize cardiac structures. Radial A-line was placed for hemodynamic monitoring. He was then prepped and draped in sterile fashion from clavicle to mid thigh. Using ultrasound-guided Seldinger technique right femoral venous access was obtained. A 12 [place] sheath was placed in the right femoral vein. Through this an Amplatz stiff wire was advanced under fluoroscopic visualization to the right IJ. Using ultrasound-guided Seldinger technique left femoral venous access was obtained. 8 [place] sheath was placed in left femoral vein. [...] were pulled back. Active-fixation mechanisms on both [id number] active-fixation leads were retracted. Leads were cut. EZ interlocking stylette's were placed down both right atrial right ventricular leads and deployed. External silk sutures were used for additional support. We then began with a 14 [place] laser sheath. Under fluoroscopic visualization we started with the right ventricular lead. 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 We were able to progressto the innominate area. Here we reached the innominate region and had significant fibrosis. We then remove the 14 [place] laser sheath and moved to the right [...] then used the right femoral venous 12 [place] sheath and Amplatz wire which was in [...] ventricle positioning on the septum. ADAME and GAMBIAN position confirmed our placement.We did an initial deployment here. Sensing of paced R wave was 12 mV. Device impedance was 520 ohms. Threshold was initially 1.5 V that decreased to 1.2 V. However remained at 1.2 V at 0.24 ms. We therefore retrieved the device back into the deploying sheath. We then movedthe device slightly superior. ADAME and GAMBIAN position to confirm septal position. Initial testing [...] Z stitch was placed around the 8 [place] sheath as well and the sheath was [...] Implant Name Type Inv. Item Serial No. Watershed Program Manager Lot No. LRB No. Used Action [id number] PACEMAKER CARDIAC MICRA AV2 LDLS BN - [id number] Pacemaker [id number] PACEMAKER CARDIAC MICRA AV2 LDLS [facility] [id number] [employer] Left 1 Implanted Specimens: Dual-chamber pacemaker generator; chronic right atrial 5076 active- fixation Medtronic lead; chronic right ventricular 5076 active-fixation Medtronic lead; 2 sewing rings. 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 He typically has an egg sandwich for [...] Daily Energy and Protein Needs: Energy Needs: Coffeen: RMR (Coffeen-St. Jeor Equation): 1920.63 Coffeen-StYeny Sykes (Considerations): 9968-3646 kcal (MSJ +1.2-1.3) based on 104 kg [...] able to make needs known. NPO at [place] for pacemaker extraction. Placed on 1L NC [...] with Dr. Daniel Ramos MD Neurology PGY-2 [facility] * Hospital Course - Gianluca Calles [...] while on IV antibiotics. Fax results to [phone]. Patient will need to be scheduled [...] R plantar foot, typically followed by wound center/grand jury deputy sheriff outpatient near patient's home. Had been using [...] at discharge summary. Tracy Lopez RN, CDS [phone] * Plan of Care - Eunice Khan [...] no change Outcome Evaluation: Assumed care from [id number]. Pt alert and oriented x4. Seems to [...] Case IDs Date Procedure Surgeon Location Status [id number] 11/05/24 LEFT BELOW KNEE AMPUTATION Dallas Camejo MD [facility] OR Comp Problem list: Principal Problem: [...] 4 mg q3h PRN for severe pain (n0ydhpuptre). 1x dose of liquid dilaudid 1mg given [...] Compared to previous outside study report from [facility] on 08/05/2024, Mitral and tricuspid regurgitation [...] 11/05: pending * Plan of Care - aMry Solomon CM - 11/11/2024 1:15 PM EST Ongoing Case Management Care Plan Note Summary:pt awaiting TATIANNA and MRI. CM met with pt at bedside, discussed acute rehab options, pt agreeable to referrals in the [facility] area. Referrals placed to [facility] rehabs Recommendation:inpt rehab Problem: Adult [...] Compared to previous outside study report from [facility] on 08/05/2024, Mitral and tricuspid regurgitation [...] PO, Q3H PRN Given, 4 mg at 11/098 ipratropium-albuterol (DUONEB) 0.5-2.5 mg/3 mL nebulizer solution [...] legal medical record Tracy Lopez RN, CDS [phone] * Provider Documentation Query - Shay Martin [...] legal medical record. Tracy Lopez RN, CDS [phone] * Plan of Care - Krystina Felipe [...] in [place] d/t need for rescue NIV. [facility] 16 on 11/06-will needupdated PT/OT notes, pt active with [facility], may need inpt rehab. CM will [...] Compared to previous outside study report from [facility] on 08/05/2024, Mitral and tricuspid regurgitation [...] with meals Given, 2 Units at 11/07 165 insulin lispro (HumaLOG/ADMELOG) 100 units/mL injection [...] at 0850 until manually unheld; held by nEa Mtz MDHold Reason: Other - Comment requiredHold [...] direct admit with plans for left BKA 2/ calcaneal osteomyelitis s/p calcaneal ostectomy 08/2024 with [...] taken off NIV after he arrived to [facility]. Pt remains on 4 L NC, Spo2 [...] to prior. Interpreted by: Roberto Tolbert MD Police Superintendent XR Chest 1 view-Portable (STAT) Final Result Bilateral reticulonodular opacities concerning for interstitial edema. Superimposed atypical infection cannot be ruled out. Interpreted by: David Vogt DO Police Superintendent I personally reviewed the images and the resident's preliminary report and AGREE with the report as it is now presented (RADPAL1). Echocardiogram (TTE) Comprehensive (Contrast PRN) Final Result Transesophageal Echocardiogram (Results Pending) CT Head w/contrast (Results Pending) Rafiq Chakraborty MD PGY-3 [facility] Internal Medicine [place] text preferred 11/07/24 11:26 AM * Plan [...] LBM 11/06. Dsg to L BKA cdi, Kick Plate Installer train conductor in place. Pt reporting adequate paincontrol this [...] level of independence with self-care tasks. Baseline [facility] Daily Activity Score: 24 Current [facility] Daily Activity Score: 18 Objective Data Cognitive Status: Alert+oriented x4, follows multi step instructions and communicates appropriately Cognitive Function: Attention: intact Memory/recall: intact Safety Awareness: intact, however would benefit from further education and training Insight: good, however would benefit from further education and supervisor filling and packing Function: intact Activities of Daily Living: Grooming/Oral [...] both feet (HCC) PAD (peripheral artery disease) ([facility]) Primary osteoarthritis of knee Proteinuria Renal osteodystrophy Restless legs syndrome (RLS) no meds, lyrica helps Septic joint of left knee joint ([facility]) Sleep apnea BiPap Smoker Stage 3a chronic kidney disease (CKD) ([facility]) Past Surgical History: Procedure Laterality [...] WOUND VAC; Surgeon: Dallas Camejo MD; Location: [facility] OR; Service: Orthopaedics; Laterality: Left; FOOT SURGERY Right x5 INCISION AND DRAINAGE FOOT Left OH PROCEDURE MAZE AFIB OSTECTOMY CALCANEOUS Left 09/10/2024 Procedure: ANKLE PARTIAL CALCANECTOMY; Surgeon: Dallas Camejo MD; Location: [facility] OR; Service:Orthopaedics; Laterality: Left; wOUND PARTIALLY [...] Progressive Mobility Level Achieved Transferring to Chair [facility] Daily Activity Putting on and taking off Lower Body Clothing? 2 Bathing (including washing/rinsing/drying)? 3 Toileting (includes using toilet, bedpan, or urinal)? 2 Putting on and taking off upper body clothing? 4 Taking care of personal grooming such as brushing teeth? 3 Eating meals? 4 [facility] Daily Activity Score 18 Therapy Assessment/Plan [...] OT goal 1 Bathing Goal 1 (OT) [place] Level/Cues Needed (Bathing Goal 1, OT) modified independence Activity/Device (Bathing Goal 1, OT) bathing skills, all Time Frame (Bathing Goal 1, OT) 2 weeks Dressing Goal 1 (OT) Activity/Device (Dressing Goal 1, OT) lower body dressing Time Frame (Dressing Goal 1, OT) 1 week [place]/Cues Needed (Dressing Goal 1, OT) modified independence Toileting Goal 1 (OT) Activity/Device (Toileting Goal 1, OT) toileting skills, all Time Frame (Toileting Goal 1, OT) 1 week [place] Level/Cues Needed (Toileting Goal 1, OT) modified [...] from the original note were not included. [facility] [address] [place] [phone] OPERATIVE REPORT Patient Name: Blas Genao Date of : 1960 Date of Procedure: 11/05/2024 Surgeons and Role: * Dallas Camejo MD - Primary * Sheila Childs APRN - Assisting Pre-op Diagnosis: Acute osteomyelitis of left calcaneus (HCC) [M86.172] Post-Op Diagnosis Codes: * Acute osteomyelitis of left calcaneus ([facility]) [M86.172] Details of Procedure Procedure(s): LEFT BELOW [...] Type Source Tests Collected by Time Destination [id number] : Left leg below the knee amputation [...] Findings: see op note Anesthesia: general Staff: Health Plan Specialist: Mary Emery RN Scrub Precepting: Binta Griffith CST Health Plan Specialist Relief: Cynthia Desai RN Estimated Blood Loss: * No values recorded between 11/05/2024 2:06 PM and 11/05/2024 3:22 PM * Specimens: ID Type Source Tests Collected by Time Destination [id number] : Left leg below the knee amputation [...] Surgeon(s): SHUBHAM Triana MD Anesthesia: general Staff: Health Plan Specialist: Mary Emery RN Scrub Precepting: Binta Griffith CST Health Plan Specialist Relief: Cynthia Desai RN Estimated Blood Loss: 25 ml Specimens: ID Type Source Tests Collected by Time Destination [id number] : Left leg below the knee amputation [...] cards Consults: Needs a postop eval from [facility]. Already being followed by ID, cards, and [...] Plan for OR today. Will have TATIANNA. Ginner to follow Naveen Kebede 11/05/2024 9:29 AM [...] TATIANNA first is not going to change analyst. Leg wounds are like the source that has now seeded the valves and likely have involved thePPM. Will eventually need PP, evaluation and extraction afterwards. - Proceed with BKA - ABx per ID - Will need TATIANNA afterwards - Consider CT head to rule out septic emboli to brain petty with acute mental status change. MD Emiliana Perez Cardiology T: [phone] F: [phone] Main Office: [address] [place] [address] * Provider Documentation Query - Juaquin Kern [...] at discharge summary. Tracy Lopez RN, CDS [phone] * Plan of Care - Belkys Diaz [...] Care Review Outcome: Progressing Flowsheets (Taken 11/04/2024 2136) Plan of Care Reviewed With: patient Progress: [...] 6:34 PM * Plan of Care - Blekys Diaz RN - 11/04/2024 4:18 AM EST [...] Note Assessment completed with patient and/or patient's employee's representative, medical record review and discussion with clinical team. CC met with the patient using social distancing. Provided a Case Coordination packet with contact information, CC pamphlet and Your Next Step: Care Outside the Hospital brochure to the patient and/or patient employee's representative. Summary: 63 yo M admitted for [...] home health services. Patient is active with [facility] for SN & CONTACT ASSEMBLER svs. Patient went to a local wound [...] -Driss KEITAA for resumption of SN & CONTACT ASSEMBLER, requested addition of PT & OT to POC Barriers to discharge: OR 11/05 Kick Plate Installer - P2P requested ID plan PT/OT evals [...] at Transition: (inpatient rehab) home health care [place] [facility] other (see comments) Patient/Family Anticipates Transition to: home with help/services inpatient rehabilitation facility Current Outpatient/Agency/Support Group: (Driss BLACKMAN - SN 3 weekly (wound care) & CONTACT ASSEMBLER x 2 weekly) homecare agency [facility] [...] PM EDT Office Visit [facility] [address] [address] Dallas Camejo MD [address] [place] [phone] 12/16/2024 8:30 AM EDT Office Visit [facility] Infectious Disease [address] [place] [phone] Ena Mtz MD [address] [place] [phone] 12/22/2024 10:00 AM EDT Appointment [facility] Heart & Vascular [place] [facility] - Echocardiography Laboratory [address] [place] [phone] Ena Mtz MD [address] [place] [phone] Pending Results Name Type Priority Associated Diagnoses [...] AM EST PM SINGLE LEAD EVAL WITH PROGRAM,[id number] Routine 11/18/2024 7:45 AM EST COMPLETE BLOOD [...] EST PM DUAL LEAD EVAL WITH PROGRAMMING, [id number] Routine 11/12/2024 1:15 PM EST POCT GLUCOSE, [...] EST PM DUAL LEAD EVAL WITH PROGRAMMING, [id number] Routine 11/11/2024 4:33 PM EST ECHOCARDIOGRAM TRANSESOPHAGEAL [...] TEST O JOSEPH Performing Organization Address [facility] Number [facility] See Below * (ABNORMAL) POCT Glucose, Fingerstick (11/25/2024 8:40 AM EST) POC Glucose 150(H) 65 - 99 mg/dL 11/25/2024 8:41 AM EST Blood specimen / Unknown 11/25/2024 8:40 AM EST 11/25/2024 8:41 AM EST Dallas Camejo MD POINT OF CARE TEST O JOSEPH Performing Organization Address [facility] Phone Number [facility] See Below * (ABNORMAL) POCT Glucose, Fingerstick (11/24/2024 4:56 PM EST) POC Glucose 105(H) 65 - 99 mg/dL 11/24/2024 5:00 PM EST Blood specimen / Unknown 11/24/2024 4:56 PM EST 11/24/2024 5:00 PM EST Dallas Camejo MD POINT OF CARE TEST O JOSEPH Performing Organization Address [facility] Co wy Phone Number HOSPITAL LAB [...] TEST O RDERABLES Performing Organization Address [facility]/ZIP Co de Phone Number [facility] See Below * (ABNORMAL) POCT Glucose, Fingerstick (11/24/2024 7:52 AM EST) POC Glucose 103(H) 65 - 99 mg/dL 11/24/2024 8:11 AM EST Blood specimen / Unknown 11/24/2024 7:52 AM EST 11/24/2024 8:11 AM EST Dallas Camejo MD POINT OF CARE TEST O RDERALUCILLE [facility] See Below * (ABNORMAL) Complete Blood Count WITHOUT Differential - in AM (11/24/2024 6:56 AM EST) Pathologist [facility] White Blood Cell Count 10.0 4.0 - 11.0 Thou/uL 11/24/2024 9:12 AM [facility] Platelet Count 366 150 - 450 Thou/uL 11/24/2024 9:12 AM [facility] Hemoglobin 9.0(L) 13.0 - 17.7 g/dL 11/24/2024 9:12 AM [facility] Hematocrit 29.5(L) 39.0 - 54.0 % 11/24/2024 9:12 AM [facility] Red Blood Cell Count 3.25(L) 4.50 - 6.20 Mil/uL 11/24/2024 9:12 AM [facility] MCV 91 80 - 100 fL 11/24/2024 9:12 AM [facility] MCH 27.7 27.0 - 31.0 pg 11/24/2024 9:12 AM [facility] MCHC 30.5 30.0 - 36.0 g/dL 11/24/2024 9:12 AM [facility] RDW 18.0(H) 11.5 - 14.5 % 11/24/2024 9:12 AM [facility] MPV 10.8 7.5 - 12.5 fL 11/24/2024 9:12 AM [facility] Blood Blood specimen / Unknown 11/24/2024 6:56 AM EST 11/24/2024 8:52 AM EST Gianluca Calles MD LAB BLOOD ORDERABLES Performing Organization Address City/State/[facility] [place] [address], [place] [address] * (ABNORMAL) Comprehensive Metabolic Panel (AM) (11/24/2024 6:56 AM EST) Glucose 99 65 - 99 mg/dL 11/24/2024 9:28 AM [facility] Comment:Fasting: <100 mg/dL, Non-Fasting: <200 mg/dL (ADA 2005) Blood Urea Nitrogen (BUN) 35(H) 8 - 21 mg/dL 11/24/2024 9:28 AM [facility] Creatinine 1.6(H) 0.5 - 1.3 mg/dL 11/24/2024 9:28 AM [facility] eGFR 48(L) >59 11/24/2024 9:28 AM [facility] Comment:CKD-EPI (2020) in mL /min/1.73 sq meters. Sodium 139 136 - 145 mmol/L 11/24/2024 9:28 AM [facility] Potassium 3.8 3.4 - 5.3 mmol/L 11/24/2024 9:28 AM [facility] Chloride 102 98 - 107 mmol/L 11/24/2024 9:28 AM [facility] CO2 24 22 - 33 mmol/L 11/24/2024 9:28 AM [facility] Calcium 8.9 8.7 - 10.5 mg/dL 11/24/2024 9:28 AM [facility] Alkaline Phosphatase 97 45 - 128 U/L 11/24/2024 9:28 AM [facility] Aspartate Aminotrans (AST) 14 10 - 55 U/L 11/24/2024 9:28 AM [facility] Alanine Aminotrans (ALT) 20 10 - 55 U/L 11/24/2024 9:28 AM [facility] Bilirubin, Total 0.2 0.2 - 1.0 mg/dL 11/24/2024 9:28 AM [facility] Protein, Total 6.7 6.3 - 8.3 g/dL 11/24/2024 9:28 AM [facility] Albumin 3.1(L) 3.4 - 4.8 g/dL 11/24/2024 9:28 AM [facility] BUN/Creatinine Ratio 22 10.0 - 25.0 Ratio 11/24/2024 9:28 AM [facility] Globulin 3.6 1.5 - 3.9 g/dL 11/24/2024 9:28 AM [facility] Albumin/Globulin Ratio 0.9(L) 1.0 - 3.0 Ratio 11/24/2024 9:28 AM [facility] Anion Gap 13 7 - 17 11/24/2024 9:28 AM [facility] Blood Blood specimen / Unknown 11/24/2024 6:56 AM EST 11/24/2024 8:52 AM EST Gianluca Calles MD LAB BLOOD ORDERABLES [address] [address], [address] [address] * (ABNORMAL) POCT Glucose, Fingerstick (11/23/2024 8:48 PM EST) POC Glucose 116(H) 65 - 99 mg/dL 11/23/2024 8:49 PM EST Blood specimen / Unknown 11/23/2024 8:48 PM EST 11/23/2024 8:49 PM EST Dallas Camejo MD POINT OF CARE TEST O RDERALUCILLE Performing Organization Address City/[facility] [facility] Phone Number [facility] See Below * POCT Glucose, Fingerstick (11/23/2024 4:35 PM EST) POC Glucose 84 65 - 99 mg/dL 11/23/2024 4:36 PM EST Blood specimen / Unknown 11/23/2024 4:35 PM EST 11/23/2024 4:36 PM EST Dallas Camejo MD POINT OF CARE TEST O R[place]UC[place] Performing Organization Address [facility] Phone Number [facility] See Below * (ABNORMAL) POCT Glucose, Fingerstick (11/23/2024 11:35 AM EST) POC Glucose 151(H) 65 - 99 mg/dL 11/23/2024 11:36 AM EST Blood specimen / Unknown 11/23/2024 11:35 AM EST 11/23/2024 11:36 AM EST Dallas Camejo MD POINT OF CARE TEST O RDERABLES Performing Organization Address [facility] Phone Number [facility] See Below * Influenza A/B, RSV, SARS-CoV-2 BALJINDER Multiplex (FLUVID) (11/23/2024 10:45 AM EST) Pathologist [facility] Influenza A Virus Not Detected Not Detected 11/23/2024 12:00 PM [facility] Influenza B Virus Not Detected Not Detected 11/23/2024 12:00 PM [facility] SARS-CoV-2 Not Detected Not Detected 11/23/2024 12:00 PM [facility] Respiratory Syncytial Virus Not Detected Not Detected 11/23/2024 12:00 PM [facility] Comment Negative results do not preclude SARS-CoV-2, Influenza or RSV infection and should not be used as the sole basis for treatment or other patient management decisions. 11/23/2024 12:00 PM EST [facility] Swab, Nasopharyngeal Nasopharyngeal swab / Unknown 11/23/2024 10:45 AM EST 11/23/2024 11:08 AM EST Gianluca Calles MD MICROBIOLOGY - GENER AL ORDERABLES Performing Organization Address [facility]/[place] [address], [address] [address] * (ABNORMAL) POCT Glucose, Fingerstick (11/23/2024 7:34 AM EST) POC Glucose 126(H) 65 - 99 mg/dL 11/23/2024 7:35 AM EST Blood specimen / Unknown 11/23/2024 7:34 AM EST 11/23/2024 7:35 AM EST Dallas Camejo MD POINT OF CARE TEST [facility] LAB See Below * (ABNORMAL) C-REACTIVE PROTEIN (11/23/2024 6:43 AM EST) C-Reactive Protein 4.88(H) 0 - 0.49 mg/dL 11/23/2024 11:53 AM EST [facility] 11/23/2024 6:43 AM EST 11/23/2024 6:49 AM EST Gianluca Calles MD LAB BLOOD ORDERABLES Performing Organization Address City/[facility]/[place]IP [place] [address], [address] [address] * (ABNORMAL) Erythrocyte Sedimentation Rate (ESR) (11/23/2024 6:43 AM EST) Erythrocyte Sediment Rate (ESR) 62(H) <20 MM/HR 11/23/2024 12:07 PM EST [facility] Blood specimen / Unknown 11/23/2024 6:43 AM EST 11/23/2024 6:49 AM EST Gianluca Calles MD LAB BLOOD ORDERABLES Performing Organization Address City/[facility] Co de Phone Number [address] [address], [address] [address] * (ABNORMAL) HEPATIC FUNCTION PANEL (11/23/2024 6:43 AM EST) Pathologist [facility] Alkaline Phosphatase 103 45 - 128 U/L 11/23/2024 11:53 AM [facility] Aspartate Aminotrans (AST) 22 10 - 55 U/L 11/23/2024 11:53 AM [facility] Alanine Aminotrans (ALT) 28 10 - 55 U/L 11/23/2024 11:53 AM [facility] Bilirubin, Total 0.2 0.2 - 1.0 mg/dL 11/23/2024 11:53 AM [facility] Protein, Total 6.6 6.3 - 8.3 g/dL 11/23/2024 11:53 AM [facility] Albumin 3.1(L) 3.4 - 4.8 g/dL 11/23/2024 11:53 AM [facility] Bilirubin, Direct 0.1 0 - 0.2 mg/dL 11/23/2024 11:53 AM [facility] Globulin 3.5 1.5 - 3.9 g/dL 11/23/2024 11:53 AM [facility] Albumin/Globulin Ratio 0.9(L) 1.0 - 3.0 Ratio 11/23/2024 11:53 AM [facility] 11/23/2024 6:43 AM EST 11/23/2024 6:49 AM EST Gianluca Calles MD LAB BLOOD ORDERABLES Performing Organization Address City/[facility]/ZIP Co de Phone Number [address] [address], [address] [address] * CREATINE KINASE (CK) (11/23/2024 6:43 AM EST) Pathologist [facility] Creatine Kinase (CK) 36 24 - 204 U/L 11/23/2024 11:53 AM [facility] 11/23/2024 6:43 AM EST 11/23/2024 6:49 AM EST Gianluca Calles MD LAB BLOOD ORDERABLES [address] [address], [address] [address] * (ABNORMAL) Complete Blood Count WITHOUT Differential - in AM (11/23/2024 6:43 AM EST) [facility] White Blood Cell Count 10.8 4.0 - 11.0 Thou/uL 11/23/2024 7:01 AM [facility] Platelet Count 353 150 - 450 Thou/uL 11/23/2024 7:01 AM [facility] Hemoglobin 8.7(L) 13.0 - 17.7 g/dL 11/23/2024 7:01 AM [facility] Hematocrit 28.3(L) 39.0 - 54.0 % 11/23/2024 7:01 AM [facility] Red Blood Cell Count 3.14(L) 4.50 - 6.20 Mil/uL 11/23/2024 7:01 AM [facility] MCV 90 80 - 100 fL 11/23/2024 7:01 AM [facility] MCH 27.7 27.0 - 31.0 pg 11/23/2024 7:01 AM [facility] MCHC 30.7 30.0 - 36.0 g/dL 11/23/2024 7:01 AM [facility] RDW 18.0(H) 11.5 - 14.5 % 11/23/2024 7:01 AM [facility] MPV 10.4 7.5 - 12.5 fL 11/23/2024 7:01 AM [facility] Blood Blood specimen / Unknown 11/23/2024 6:43 AM EST 11/23/2024 6:49 AM EST Gianluca Calles MD LAB [place] [address], [place] [address] * Magnesium (AM) (11/23/2024 6:43 AM EST) Magnesium 2.2 1.6 - 2.7 mg/dL 11/23/2024 7:22 AM [facility] Blood Blood specimen / Unknown 11/23/2024 6:43 AM EST 11/23/2024 6:49 AM EST Gianluca Calles MD LAB BLOOD ORDERABLES Performing Organization Address [facility]/ZIP [place] [address], [place] [address] * (ABNORMAL) Basic Metabolic Panel (AM) (11/23/2024 6:43 AM EST) Glucose 114(H) 65 - 99 mg/dL 11/23/2024 7:22 AM [facility] Comment:Fasting: <100 mg/dL, Non-Fasting: <200 mg/dL (ADA 2004) Blood Urea Nitrogen (BUN) 31(H) 8 - 21 mg/dL 11/23/2024 7:22 AM [facility] Creatinine 1.5(H) 0.5 - 1.3 mg/dL 11/23/2024 7:22 AM [facility] eGFR 52(L) >59 11/23/2024 7:22 AM [facility] Comment:CKD-EPI (2020) in mL /min/1.73 sq meters. Sodium 140 136 - 145 mmol/L 11/23/2024 7:22 AM [facility] Potassium 4.0 3.4 - 5.3 mmol/L 11/23/2024 7:22 AM [facility] Chloride 104 98 - 107 mmol/L 11/23/2024 7:22 AM [facility] CO2 25 22 - 33 mmol/L 11/23/2024 7:22 AM [facility] Anion Gap 11 7 - 17 11/23/2024 7:22 AM EST [facility] Calcium 9.0 8.7 - 10.5 mg/dL 11/23/2024 7:22 AM [facility] BUN/Creatinine Ratio 21 10.0 - 25.0 Ratio 11/23/2024 7:22 AM EST [facility] Blood Blood specimen / Unknown 11/23/2024 6:43 AM EST 11/23/2024 6:49 AM EST Gianluca Calles MD LAB BLOOD ORDERABLES [address] [address], [address] [address] * (ABNORMAL) POCT Glucose, Fingerstick (11/22/2024 9:02 [...] [facility] See [facility] * PM LEADLESS SINGLE-CARDIAC CHAMBER EVAL W/PROGRAM (IN PERSON), [id number] (11/22/2024 2:20 PM EST) Date Time Interrogation Session [id number] PACEART Implantable Pulse Generator Watershed Program Manager [employer] PACEART Implantable Pulse Generator Model [id number] Micra AV2 PACEART Implantable Pulse Generator Serial Number [id number] PACEART Implantable Pulse Generator Type Pacemaker PACEART [...] last reset 99.86 % PACEART Otf Statistic BATTERY ASSEMBLER DRY CELL Percent 100.00 % PACEART Otf Statistic VS Percent 0 % PACEART Anatomical Region Laterality Modality Other 11/22/2024 1:58 PM EST Narrative 11/28/2024 10:40 AM EST Micra AV leadless Pacemaker evaluation completed on B10E. Per patient request and verbal order from [facility] [employer]: LRL increased from 50 bpm to 60 bpm. Presenting rhythm: AM/BATTERY ASSEMBLER DRY CELL @ 62 bpm. Underlying rhythm: CHB. AM/BATTERY ASSEMBLER DRY CELL pacing 81%, with total V-pacing 100%. Battery [...] MD POINT OF CARE TEST O RDERABLES [facility] See Below * (ABNORMAL) POCT Glucose, Fingerstick (11/22/2024 7:35 AM EST) Pathologist [facility] POC Glucose 194(H) 65 - 99 mg/dL 11/22/2024 7:37 AM EST Blood specimen / Unknown 11/22/2024 7:35 AM EST 11/22/2024 7:37 AM EST Dallas Camejo MD POINT OF CARE TEST O RDERABLES Performing Organization Address City/[facility]/ZIP Co de Phone Number [facility] See Below * Magnesium (AM) (11/22/2024 7:31 AM EST) [facility] Magnesium 2.0 1.6 - 2.7 mg/dL 11/22/2024 8:17 AM EST [facility] Blood (Plasma/Serum) 11/22/2024 7:31 AM EST 11/22/2024 7:54 AM EST Gianluca Calles MD LAB BLOOD ORDERABLES Performing Organization Address [facility] [place] [address], [place] [address] * (ABNORMAL) Complete Blood Count WITHOUT Differential - in AM (11/22/2024 7:31 AM EST) [facility] White Blood Cell Count 12.1(H) 4.0 - 11.0 Thou/uL 11/22/2024 8:19 AM [facility] Platelet Count 333 150 - 450 Thou/uL 11/22/2024 8:19 AM [facility] Hemoglobin 8.1(L) 13.0 - 17.7 g/dL 11/22/2024 8:19 AM [facility] Hematocrit 26.2(L) 39.0 - 54.0 % 11/22/2024 8:19 AM [facility] Red Blood Cell Count 2.88(L) 4.50 - 6.20 Mil/uL 11/22/2024 8:19 AM [facility] MCV 91 80 - 100 fL 11/22/2024 8:19 AM [facility] MCH 28.1 27.0 - 31.0 pg 11/22/2024 8:19 AM [facility] MCHC 30.9 30.0 - 36.0 g/dL 11/22/2024 8:19 AM [facility] RDW 18.0(H) 11.5 - 14.5 % 11/22/2024 8:19 AM [facility] MPV 10.5 7.5 - 12.5 fL 11/22/2024 8:19 AM [facility] Blood Blood specimen / Unknown 11/22/2024 7:31 AM EST 11/22/2024 7:54 AM EST Gianluca Calles MD LAB BLOOD ORDERABLES Performing Organization Address City/State/[facility] [place] [address], [place] [address] * (ABNORMAL) Basic Metabolic Panel (AM) (11/22/2024 7:31 AM EST) Glucose 178(H) 65 - 99 mg/dL 11/22/2024 8:17 AM [facility] Comment:Fasting: <100 mg/dL, Non-Fasting: <200 mg/dL (ADA 2005) Blood Urea Nitrogen (BUN) 36(H) 8 - 21 mg/dL 11/22/2024 8:17 AM [facility] Creatinine 1.6(H) 0.5 - 1.3 mg/dL 11/22/2024 8:17 AM [facility] eGFR 48(L) >59 11/22/2024 8:17 AM [facility] Comment:CKD-EPI (2020) in mL /min/1.73 sq meters. Sodium 137 136 - 145 mmol/L 11/22/2024 8:17 AM [facility] Potassium 4.2 3.4 - 5.3 mmol/L 11/22/2024 8:17 AM [facility] Chloride 101 98 - 107 mmol/L 11/22/2024 8:17 AM [facility] CO2 27 22 - 33 mmol/L 11/22/2024 8:17 AM [facility] Anion Gap 9 7 - 17 11/22/2024 8:17 AM [facility] Calcium 8.8 8.7 - 10.5 mg/dL 11/22/2024 8:17 AM [facility] BUN/Creatinine Ratio 23 10.0 - 25.0 Ratio 11/22/2024 8:17 AM [facility] Blood (Plasma/Serum) 11/22/2024 7:31 AM EST 11/22/2024 7:54 AM EST Gianluca Calles MD LAB [place] [address], [place] [address] * (ABNORMAL) POCT Glucose, Fingerstick (11/21/2024 9:28 [...] Glucose, Fingerstick (11/21/2024 11:56 AM EST) Pathologist [facility] POC Glucose 246(H) 65 - 99 mg/dL 11/21/2024 12:03 PM EST Blood specimen / Unknown 11/21/2024 11:56 AM EST 11/21/2024 12:03 PM EST Dallas Camejo MD POINT OF CARE TEST O RDERABLES Performing Organization Address [facility] Co de Phone Number [facility] See Below * (ABNORMAL) POCT Glucose, Fingerstick (11/21/2024 7:45 AM EST) Pathologist [facility] POC Glucose 175(H) 65 - 99 mg/dL 11/21/2024 7:54 AM EST Blood specimen / Unknown 11/21/2024 7:45 AM EST 11/21/2024 7:54 AM EST Dallas Camejo MD POINT OF CARE TEST O [place]UC[place] Performing Organization Address [facility] Phone Number [facility] See Below * Magnesium (AM) (11/21/2024 6:58 AM EST) [facility] Magnesium 2.1 1.6 - 2.7 mg/dL 11/21/2024 8:14 AM EST [facility] Blood (Plasma/Serum) 11/21/2024 6:58 AM EST 11/21/2024 7:36 AM EST Gianluca Calles MD LAB BLOOD ORDERABLES Performing Organization Address [facility] Co de Phone Number [address] [address], [address] [address] * (ABNORMAL) Complete Blood Count WITHOUT Differential - in AM (11/21/2024 6:58 AM EST) [facility] White Blood Cell Count 14.0(H) 4.0 - 11.0 Thou/uL 11/21/2024 7:55 AM EST [facility] Platelet Count 329 150 - 450 Thou/uL 11/21/2024 7:55 AM [facility] Hemoglobin 8.2(L) 13.0 - 17.7 g/dL 11/21/2024 7:55 AM [facility] Hematocrit 26.7(L) 39.0 - 54.0 % 11/21/2024 7:55 AM [facility] Red Blood Cell Count 2.95(L) 4.50 - 6.20 Mil/uL 11/21/2024 7:55 AM [facility] MCV 91 80 - 100 fL 11/21/2024 7:55 AM [facility] MCH 27.8 27.0 - 31.0 pg 11/21/2024 7:55 AM [facility] MCHC 30.7 30.0 - 36.0 g/dL 11/21/2024 7:55 AM [facility] RDW 17.8(H) 11.5 - 14.5 % 11/21/2024 7:55 AM [facility] MPV 10.4 7.5 - 12.5 fL 11/21/2024 7:55 AM [facility] Blood Blood specimen / Unknown 11/21/2024 6:58 AM EST 11/21/2024 7:36 AM EST Gianluca Calles MD LAB BLOOD ORDERABLES Performing Organization Address City/State/[facility] [place] [address], [place] [address] * (ABNORMAL) Basic Metabolic Panel (AM) (11/21/2024 6:58 AM EST) Glucose 153(H) 65 - 99 mg/dL 11/21/2024 8:14 AM [facility] Comment:Fasting: <100 mg/dL, Non-Fasting: <200 mg/dL (ADA 2005) Blood Urea Nitrogen (BUN) 38(H) 8 - 21 mg/dL 11/21/2024 8:14 AM [facility] Creatinine 1.8(H) 0.5 - 1.3 mg/dL 11/21/2024 8:14 AM [facility] eGFR 42(L) >59 11/21/2024 8:14 AM [facility] Comment:CKD-EPI (2020) in mL /min/1.73 sq meters. Sodium 136 136 - 145 mmol/L 11/21/2024 8:14 AM [facility] Potassium 3.7 3.4 - 5.3 mmol/L 11/21/2024 8:14 AM [facility] Chloride 99 98 - 107 mmol/L 11/21/2024 8:14 AM [facility] CO2 27 22 - 33 mmol/L 11/21/2024 8:14 AM [facility] Anion Gap 10 7 - 17 11/21/2024 8:14 AM [facility] Calcium 8.8 8.7 - 10.5 mg/dL 11/21/2024 8:14 AM [facility] BUN/Creatinine Ratio 21 10.0 - 25.0 Ratio 11/21/2024 8:14 AM [facility] Blood (Plasma/Serum) 11/21/2024 6:58 AM EST 11/21/2024 7:36 AM EST Gianluca Calles MD [place] [address], [place] [address] * (ABNORMAL) POCT Glucose, Fingerstick (11/20/2024 8:16 [...] TEST O RDERABLES Performing Organization Address [facility] Phone Number [facility] See Below * (ABNORMAL) POCT Glucose, Fingerstick (11/20/2024 12:07 PM EST) POC Glucose 167(H) 65 - 99 mg/dL 11/20/2024 12:12 PM EST Blood specimen / Unknown 11/20/2024 12:07 PM EST 11/20/2024 12:12 PM EST Dallas Camejo MD POINT OF CARE TEST O RDERABLES Performing Organization Address [facility] Number [facility] See Below * (ABNORMAL) POCT Glucose, Fingerstick (11/20/2024 7:58 AM EST) POC Glucose 166(H) 65 - 99 mg/dL 11/20/2024 8:02 AM EST Blood specimen / Unknown 11/20/2024 7:58 AM EST 11/20/2024 8:02 AM EST Dallas Camejo MD POINT OF CARE TEST O RDERABLES Performing Organization Address [facility] Number [facility] See Below * Magnesium (AM) (11/20/2024 6:59 AM EST) Magnesium 2.2 1.6 - 2.7 mg/dL 11/20/2024 8:04 AM EST [facility] Blood (Plasma/Serum) 11/20/2024 6:59 AM EST 11/20/2024 7:31 AM EST Gianluca Calles MD LAB BLOOD ORDERABLES Performing Organization Address [facility] de Phone Number [address] [address], [address] [address] * (ABNORMAL) Complete Blood Count WITHOUT Differential - in AM (11/20/2024 6:59 AM EST) White Blood Cell Count 11.9(H) 4.0 - 11.0 Thou/uL 11/20/2024 7:45 AM [facility] Platelet Count 339 150 - 450 Thou/uL 11/20/2024 7:45 AM [facility] Hemoglobin 8.3(L) 13.0 - 17.7 g/dL 11/20/2024 7:45 AM [facility] Hematocrit 27.2(L) 39.0 - 54.0 % 11/20/2024 7:45 AM [facility] Red Blood Cell Count 3.01(L) 4.50 - 6.20 Mil/uL 11/20/2024 7:45 AM [facility] MCV 90 80 - 100 fL 11/20/2024 7:45 AM [facility] MCH 27.6 27.0 - 31.0 pg 11/20/2024 7:45 AM [facility] MCHC 30.5 30.0 - 36.0 g/dL 11/20/2024 7:45 AM [facility] RDW 17.5(H) 11.5 - 14.5 % 11/20/2024 7:45 AM [facility] MPV 10.7 7.5 - 12.5 fL 11/20/2024 7:45 AM [facility] Blood Blood specimen / Unknown 11/20/2024 6:59 AM EST 11/20/2024 7:31 AM EST Gianluca Calles MD LAB BLOOD ORDERABLES [address] [address], [address] [address] * (ABNORMAL) Basic Metabolic Panel (AM) (11/20/2024 6:59 AM EST) [facility] Glucose 155(H) 65 - 99 mg/dL 11/20/2024 8:04 AM [facility] Comment:Fasting: <100 mg/dL, Non-Fasting: <200 mg/dL (ADA 2005) Blood Urea Nitrogen (BUN) 47(H) 8 - 21 mg/dL 11/20/2024 8:04 AM [facility] Creatinine 1.9(H) 0.5 - 1.3 mg/dL 11/20/2024 8:04 AM [facility] eGFR 39(L) >59 11/20/2024 8:04 AM [facility] Comment:CKD-EPI (2020) in mL /min/1.73 sq meters. Sodium 137 136 - 145 mmol/L 11/20/2024 8:04 AM [facility] Potassium 3.8 3.4 - 5.3 mmol/L 11/20/2024 8:04 AM [facility] Chloride 98 98 - 107 mmol/L 11/20/2024 8:04 AM [facility] CO2 30 22 - 33 mmol/L 11/20/2024 8:04 AM [facility] Anion Gap 9 7 - 17 11/20/2024 8:04 AM [facility] Calcium 9.0 8.7 - 10.5 mg/dL 11/20/2024 8:04 AM [facility] BUN/Creatinine Ratio 25 10.0 - 25.0 Ratio 11/20/2024 8:04 AM [facility] Blood (Plasma/Serum) 11/20/2024 6:59 AM EST 11/20/2024 7:31 AM EST Gianluca Calles MD LAB BLOOD ORDERABLES Performing Organization Address City/[facility]/ZIP [place] [address], [place] [address] * (ABNORMAL) POCT Glucose, Fingerstick (11/19/2024 4:13 PM EST) POC Glucose 274(H) 65 - 99 mg/dL 11/19/2024 4:14 PM EST Blood specimen / Unknown 11/19/2024 4:13 PM EST 11/19/2024 4:14 PM EST Dallas Camejo MD POINT OF CARE TEST O RDERABLES [facility]OSPITAL LAB See Below * (ABNORMAL) Urinalysis with Reflex to Microscopic (11/19/2024 4:00 PM EST) Color Yellow 11/19/2024 4:30 PM [facility] Clarity Clear 11/19/2024 4:30 PM [facility] Specific [place] 1.008 1.003 - 1.030 11/19/2024 4:30 PM [facility] pH 6.0 5.0 - 8.0 11/19/2024 4:30 PM [facility] Leukocyte Esterase Large(A) Negative 11/19/2024 4:30 PM [facility] Nitrite Negative Negative 11/19/2024 4:30 PM [facility] Protein Negative Negative 11/19/2024 4:30 PM [facility] Glucose 0 0 - 99 mg/dL 11/19/2024 4:30 PM [facility] Ketones Negative Negative 11/19/2024 4:30 PM [facility] Blood Negative Negative 11/19/2024 4:30 PM [facility] Bilirubin Negative Negative 11/19/2024 4:30 PM [facility] WBC >25(H) 0 - 4 per hpf 11/19/2024 4:30 PM [facility] RBC 2 0 - 4 per hpf 11/19/2024 4:30 PM [facility] X-Specimen 16 Voided urine specimen / Unknown 11/19/2024 4:00 PM EST 11/19/2024 4:18 PM EST Anmol Reynoso MD URINE ORDERABLES [address] [address], [address] [address] * OSMOLALITY, URINE (11/19/2024 4:00 PM EST) Osmolality, Urine 201 50 - 1,200 mOsm/Kg 11/19/2024 6:20 PM [facility] Urine Urine specimen / Unknown 11/19/2024 4:00 PM EST 11/19/2024 4:19 PM EST Anmol Reynoso MD URINE ORDERABLES Performing Organization Address City/[facility] Co de Phone Number [address] [address], [address] [address] * Urea Nitrogen, Urine, Random (11/19/2024 4:00 PM EST) Urea Nitrogen, Random Urine 273 mg/dL 11/19/2024 5:43 PM EST [facility] Comment:Reference range not established for random specimen. Urine Urine specimen / Unknown 11/19/2024 4:00 PM EST 11/19/2024 4:19 PM EST Anmol Reynoso MD URINE ORDERABLES Performing Organization Address [facility] Co de Phone Number [address] [address], [address] [address] * SODIUM, URINE, RANDOM (11/19/2024 4:00 PM EST) Sodium, Urine Random 21 mmol/L 11/19/2024 5:43 PM EST [facility] Comment:Reference range not established for random specimen. Urine Urine specimen / Unknown 11/19/2024 4:00 PM EST 11/19/2024 4:19 PM EST Anmol Reynoso MD URINE ORDERABLES Performing Organization Address City/[facility] Co de Phone Number [address] [address], [address] [address] * CREATININE, URINE, RANDOM (11/19/2024 4:00 PM EST) Creatinine, Urine, Random 31 mg/dL 11/19/2024 5:43 PM EST [facility] Comment:Reference range not established for random specimen. Urine Urine specimen / Unknown 11/19/2024 4:00 PM EST 11/19/2024 4:19 PM EST Anmol Reynoso MD URINE ORDERABLES Performing Organization Address [facility] [place] [address], [place] [address] * Chloride, Urine, Random (11/19/2024 4:00 PM EST) Chloride, Urine, Random 23 mmol/L 11/19/2024 5:43 PM EST [facility] Comment:Reference range not established for random specimen. Urine Urine specimen / Unknown 11/19/2024 4:00 PM EST 11/19/2024 4:19 PM EST Anmol Reynoso MD URINE ORDERABLES Performing Organization Address [facility] [place] [address], [place] [address] * CVC INSERT (TUNNEL) W/O PORT GREATER [...] table. A preprocedure time-out was performed per [facility] protocol. The right neck and [...] access, a 26 cm long dual lumen 5-Citizen [place] cuffed tunneled catheter was placed under fluoroscopic [...] table. A preprocedure time-out was performed per [facility] protocol. The right neck and [...] access, a 26 cm long dual lumen 5-Citizen [place] cuffed tunneled catheter was placed under fluoroscopic [...] POCT Glucose, Fingerstick (11/19/2024 11:39 AM EST) [facility] POC Glucose 205(H) 65 - 99 mg/dL 11/19/2024 11:40 AM EST Blood specimen / Unknown 11/19/2024 11:39 AM EST 11/19/2024 11:40 AM EST Dallas Camejo MD [facility] See Below * (ABNORMAL) POCT Glucose, Fingerstick (11/19/2024 8:06 AM EST) Pathologist [facility] POC Glucose 190(H) 65 - 99 mg/dL 11/19/2024 8:08 AM EST Blood specimen / Unknown 11/19/2024 8:06 AM EST 11/19/2024 8:08 AM EST Dallas Camejo MD [facility] See Below * (ABNORMAL) Complete Blood Count WITHOUT Differential - Daily x2 (11/19/2024 7:54 AM EST) [facility] White Blood Cell Count 10.1 4.0 - 11.0 Thou/uL 11/19/2024 8:48 AM EST [facility] Platelet Count 354 150 - 450 Thou/uL 11/19/2024 8:48 AM [facility] Hemoglobin 8.2(L) 13.0 - 17.7 g/dL 11/19/2024 8:48 AM [facility] Hematocrit 26.6(L) 39.0 - 54.0 % 11/19/2024 8:48 AM [facility] Red Blood Cell Count 2.99(L) 4.50 - 6.20 Mil/uL 11/19/2024 8:48 AM [facility] MCV 89 80 - 100 fL 11/19/2024 8:48 AM [facility] MCH 27.4 27.0 - 31.0 pg 11/19/2024 8:48 AM [facility] MCHC 30.8 30.0 - 36.0 g/dL 11/19/2024 8:48 AM [facility] RDW 17.2(H) 11.5 - 14.5 % 11/19/2024 8:48 AM [facility] MPV 10.8 7.5 - 12.5 fL 11/19/2024 8:48 AM [facility] Blood Blood specimen / Unknown 11/19/2024 7:54 AM EST 11/19/2024 8:33 AM EST Corbin Lamb APRN LAB BLOOD ORDERABL ES Performing Organization Address City/[facility]/[place] [address], [place] [address] * Magnesium (Daily x 2 days) (11/19/2024 7:54 AM EST) Magnesium 2.1 1.6 - 2.7 mg/dL 11/19/2024 9:00 AM [facility] Blood (Plasma/Serum) 11/19/2024 7:54 AM EST 11/19/2024 8:33 AM EST Corbin Lamb APRN LAB BLOOD ORDERABL ES Performing Organization Address City/[facility]/ZIP [place] [address], [place] [address] * (ABNORMAL) Basic Metabolic Panel (Daily x 2 days) (11/19/2024 7:54 AM EST) Glucose 169(H) 65 - 99 mg/dL 11/19/2024 9:00 AM [facility] Comment:Fasting: <100 mg/dL, Non-Fasting: <200 mg/dL (ADA 2004) Blood Urea Nitrogen (BUN) 43(H) 8 - 21 mg/dL 11/19/2024 9:00 AM [facility] Creatinine 1.8(H) 0.5 - 1.3 mg/dL 11/19/2024 9:00 AM [facility] eGFR 42(L) >59 11/19/2024 9:00 AM [facility] Comment:CKD-EPI (2020) in mL /min/1.73 sq meters. Sodium 132(L) 136 - 145 mmol/L 11/19/2024 9:00 AM [facility] Potassium 3.7 3.4 - 5.3 mmol/L 11/19/2024 9:00 AM [facility] Chloride 92(L) 98 - 107 mmol/L 11/19/2024 9:00 AM [facility] CO2 30 22 - 33 mmol/L 11/19/2024 9:00 AM [facility] Anion Gap 10 7 - 17 11/19/2024 9:00 AM [facility] Calcium 9.1 8.7 - 10.5 mg/dL 11/19/2024 9:00 AM [facility] BUN/Creatinine Ratio 24 10.0 - 25.0 Ratio 11/19/2024 9:00 AM [facility] Blood (Plasma/Serum) 11/19/2024 7:54 AM EST 11/19/2024 8:33 AM EST Corbin Lamb APRN LAB BLOOD ORDERABL ES [facility] [address] [place] [address], [address] [address] * (ABNORMAL) POCT Glucose, Fingerstick (11/18/2024 9:04 PM EST) POC Glucose 253(H) 65 - 99 mg/dL 11/18/2024 9:11 PM EST Blood specimen / Unknown 11/18/2024 9:04 PM EST 11/18/2024 9:11 PM EST Dallas Camejo MD POINT OF CARE TEST O RDERALUCILLE Performing Organization Address [facility] Phone Number [facility] LAB See Below * (ABNORMAL) POCT Glucose, Fingerstick (11/18/2024 4:56 PM EST) POC Glucose 305(H) 65 - 99 mg/dL 11/18/2024 4:58 PM EST Blood specimen / Unknown 11/18/2024 4:56 PM EST 11/18/2024 4:57 PM EST Dallas Camejo MD POINT OF CARE TEST O RDGHANSHYAM Performing Organization Address [facility] Number [facility] See Below * (ABNORMAL) POCT Glucose, Fingerstick (11/18/2024 12:00 PM EST) POC Glucose 253(H) 65 - 99 mg/dL 11/18/2024 12:01 PM EST Blood specimen / Unknown 11/18/2024 12:00 PM EST 11/18/2024 12:01 PM EST Dallas Camejo MD POINT OF CARE TEST O RDERALUCILLE Performing Organization Address [facility] Phone Number [facility] See Below * (ABNORMAL) POCT Glucose, Fingerstick (11/18/2024 7:53 AM EST) POC Glucose 129(H) 65 - 99 mg/dL 11/18/2024 7:58 AM EST Blood specimen / Unknown 11/18/2024 7:53 AM EST 11/18/2024 7:58 AM EST Dallas Camejo MD POINT OF CARE TEST [facility] LAB See Below * PM SINGLE LEAD EVAL WITH PROGRAM,[id number] (11/18/2024 7:45 AM EST) Date Time Interrogation Session ,,[phone],07 [id number] PACEART Implantable Pulse Generator Watershed Program Manager [employer] PACEART Implantable Pulse Generator Model [id number] Micra AV2 PACEART Implantable Pulse Generator Serial Number [id number] PACEART Implantable Pulse Generator Type Pacemaker PACEART [...] last reset 92.76 % PACEART Otf Statistic BATTERY ASSEMBLER DRY CELL Percent 99.88 % PACEART Otf Statistic VS Percent 0.12 % PACEART Anatomical Region Laterality Modality Other 11/18/2024 7:35 AM EST Narrative 11/19/2024 12:19 PM EST Pacemaker evaluation completed on B10E, device interrogation ordered for post-OP. Presenting rhythm: AM-BATTERY ASSEMBLER DRY CELL @ 69 bpm. Underlying rhythm: No ventricular response greater than 40 bpm. AM-BATTERY ASSEMBLER DRY CELL @ 84.8%. Battery and device parameters evaluated and within normal limits. Normal pacemaker function. Micra pacemakers do not record events. Sri Pena RN Corbin Lamb APRN CV CARDIAC SERVICE S ORDERABLES * Creatine Kinase (CK) (11/18/2024 7:15 AM EST) Creatine Kinase (CK) 49 24 - 204 U/L 11/18/2024 8:22 AM [facility] Blood (Plasma/Serum) 11/18/2024 7:15 AM EST 11/18/2024 7:47 AM EST Corbin Lamb APRN LAB BLOOD ORDERABL ES Performing Organization Address City/[facility]/ZIP Co de Phone Number [address] [address], [address] [address] * (ABNORMAL) Complete Blood Count WITHOUT Differential - Daily x2 (11/18/2024 7:15 AM EST) White Blood Cell Count 12.3(H) 4.0 - 11.0 Thou/uL 11/18/2024 8:00 AM [facility] Platelet Count 349 150 - 450 Thou/uL 11/18/2024 8:00 AM [facility] Hemoglobin 8.1(L) 13.0 - 17.7 g/dL 11/18/2024 8:00 AM [facility] Hematocrit 25.5(L) 39.0 - 54.0 % 11/18/2024 8:00 AM [facility] Red Blood Cell Count 2.90(L) 4.50 - 6.20 Mil/uL 11/18/2024 8:00 AM [facility] MCV 88 80 - 100 fL 11/18/2024 8:00 AM [facility] MCH 27.9 27.0 - 31.0 pg 11/18/2024 8:00 AM [facility] MCHC 31.8 30.0 - 36.0 g/dL 11/18/2024 8:00 AM [facility] RDW 17.1(H) 11.5 - 14.5 % 11/18/2024 8:00 AM [facility] MPV 10.6 7.5 - 12.5 fL 11/18/2024 8:00 AM [facility] Blood Blood specimen / Unknown 11/18/2024 7:15 AM EST 11/18/2024 7:47 AM EST Corbin Lamb APRN LAB BLOOD ORDERABL ES [facility] [address] [place] [address], [address] [address] * Magnesium (Daily x 2 days) (11/18/2024 7:15 AM EST) Magnesium 2.0 1.6 - 2.7 mg/dL 11/18/2024 8:22 AM [facility] Blood (Plasma/Serum) 11/18/2024 7:15 AM EST 11/18/2024 7:47 AM EST Corbin Lamb APRN LAB BLOOD ORDERABL ES Performing Organization Address City/State/[facility] Co de Phone Number [address] [address], [address] [address] * (ABNORMAL) Basic Metabolic Panel (Daily x 2 days) (11/18/2024 7:15 AM EST) Glucose 114(H) 65 - 99 mg/dL 11/18/2024 8:22 AM [facility] Comment:Fasting: <100 mg/dL, Non-Fasting: <200 mg/dL (ADA 2005) Blood Urea Nitrogen (BUN) 45(H) 8 - 21 mg/dL 11/18/2024 8:22 AM [facility] Creatinine 1.8(H) 0.5 - 1.3 mg/dL 11/18/2024 8:22 AM [facility] eGFR 42(L) >59 11/18/2024 8:22 AM [facility] Comment:CKD-EPI (2020) in mL /min/1.73 sq meters. Sodium 129(L) 136 - 145 mmol/L 11/18/2024 8:22 AM [facility] Potassium 3.6 3.4 - 5.3 mmol/L 11/18/2024 8:22 AM [facility] Chloride 89(L) 98 - 107 mmol/L 11/18/2024 8:22 AM [facility] CO2 29 22 - 33 mmol/L 11/18/2024 8:22 AM [facility] Anion Gap 11 7 - 17 11/18/2024 8:22 AM EST [facility] Calcium 8.9 8.7 - 10.5 mg/dL 11/18/2024 8:22 AM EST [facility] BUN/Creatinine Ratio 25 10.0 - 25.0 Ratio 11/18/2024 8:22 AM EST [facility] Blood (Plasma/Serum) 11/18/2024 7:15 AM EST 11/18/2024 7:47 AM EST Corbin Lamb APRN LAB BLOOD ORDERABL ES [address] [address], [address] [address] * XR Chest 1 view (11/17/2024 5:48 [...] femoral venous access was obtained. ??A 12 Citizen [place] sheath was placed in the right femoral vein. ?? Through this an Amplatz stiff wire was advanced under fluoroscopic visualization to the right IJ. ??Using ultrasound-guided Seldinger technique left femoral venous access was obtained. ??8 Citizen [place] sheath was placed in left femoral vein. [...] support. ??We then began with a 14 [place] laser sheath. ??Under fluoroscopic visualization we started with the right ventricular lead. ?? 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 ??We were able to progress to the innominate area. ??Here we reached the innominate region and had significant fibrosis. ??We then remove the 14 Citizen [place] laser sheath and moved to the right [...] then used the right femoral venous 12 [place] sheath and Amplatz wire which was in [...] ventricle positioning on the septum. ??ADAME and GAMBIAN position confirmed our placement.We did an initial deployment here. ??Sensing of paced R wave was 12 mV. ??Device impedance was 520 ohms. ??Threshold was initially 1.5 V that decreased to 1.2 V. ??However remained at 1.2 V at 0.24 ms. ??We therefore retrieved the device back into the deploying sheath. ??We then moved the device slightly superior. ??ADAME and GAMBIAN position to confirm septal position. ??Initial testing [...] ??Z stitch was placed around the 8 Citizen [place] sheath as well and the sheath was [...] TEST O RDERABLES Performing Organization Address [facility] Number [facility] See Below * (ABNORMAL) POCT Glucose, Fingerstick (11/17/2024 11:18 AM EST) POC Glucose 153(H) 65 - 99 mg/dL 11/17/2024 11:22 AM EST Blood specimen / Unknown 11/17/2024 11:18 AM EST 11/17/2024 11:22 AM EST Dallas Camejo MD POINT OF CARE TEST O RDERABLES Performing Organization Address [facility] LAB See Below * Phosphorus (AM) (11/17/2024 8:16 AM EST) Phosphorus 3.5 2.7 - 4.5 mg/dL 11/17/2024 9:01 AM EST [facility] Blood (Plasma/Serum) 11/17/2024 8:16 AM EST 11/17/2024 8:30 AM EST Maddison Villalpando MD LAB BLOOD ORDERABLES Performing Organization Address [address] [address], [address] [address] * Magnesium (AM) (11/17/2024 8:16 AM EST) Magnesium 2.0 1.6 - 2.7 mg/dL 11/17/2024 9:01 AM EST [facility] Blood (Plasma/Serum) 11/17/2024 8:16 AM EST 11/17/2024 8:30 AM EST Maddison Villalpando MD LAB BLOOD ORDERABLES Performing Organization Address [facility] Number [address] [place] [address], [address] [address] * (ABNORMAL) POCT Glucose, Fingerstick (11/17/2024 7:20 AM EST) [facility] POC Glucose 206(H) 65 - 99 mg/dL 11/17/2024 7:31 AM EST Blood specimen / Unknown 11/17/2024 7:20 AM EST 11/17/2024 7:30 AM EST Dallas Camejo MD POINT OF CARE TEST [facility] LAB See Below * (ABNORMAL) Complete Blood Count WITHOUT Differential - STAT (11/17/2024 5:00 AM EST) [facility] White Blood Cell Count 11.2(H) 4.0 - 11.0 Thou/uL 11/17/2024 5:26 AM [facility] Platelet Count 373 150 - 450 Thou/uL 11/17/2024 5:26 AM [facility] Hemoglobin 8.2(L) 13.0 - 17.7 g/dL 11/17/2024 5:26 AM [facility] Hematocrit 25.0(L) 39.0 - 54.0 % 11/17/2024 5:26 AM [facility] Red Blood Cell Count 2.94(L) 4.50 - 6.20 Mil/uL 11/17/2024 5:26 AM [facility] MCV 85 80 - 100 fL 11/17/2024 5:26 AM [facility] MCH 27.9 27.0 - 31.0 pg 11/17/2024 5:26 AM [facility] MCHC 32.8 30.0 - 36.0 g/dL 11/17/2024 5:26 AM [facility] RDW 16.5(H) 11.5 - 14.5 % 11/17/2024 5:26 AM [facility] MPV 10.4 7.5 - 12.5 fL 11/17/2024 5:26 AM [facility] Blood Blood specimen / Unknown 11/17/2024 5:00 AM EST 11/17/2024 5:09 AM EST Adithya Sheriff PA-C LAB BLOOD ORDERAB LES [facility] [address] [place] [address], [facility] [address] [place] [address] * (ABNORMAL) Comprehensive Metabolic Panel (AM) (11/17/2024 5:00 AM EST) Glucose 171(H) 65 - 99 mg/dL 11/17/2024 6:55 AM [facility] Comment:Fasting: <100 mg/dL, Non-Fasting: <200 mg/dL (ADA 2004) Blood Urea Nitrogen (BUN) 54(H) 8 - 21 mg/dL 11/17/2024 6:55 AM [facility] Creatinine 1.8(H) 0.5 - 1.3 mg/dL 11/17/2024 6:55 AM [facility] eGFR 42(L) >59 11/17/2024 6:55 AM [facility] Comment:CKD-EPI (2020) in mL /min/1.73 sq meters. Sodium 128(L) 136 - 145 mmol/L 11/17/2024 6:55 AM [facility] Potassium 3.7 3.4 - 5.3 mmol/L 11/17/2024 6:55 AM [facility] Chloride 87(L) 98 - 107 mmol/L 11/17/2024 6:55 AM [facility] CO2 30 22 - 33 mmol/L 11/17/2024 6:55 AM [facility] Calcium 9.4 8.7 - 10.5 mg/dL 11/17/2024 6:55 AM [facility] Alkaline Phosphatase 117 45 - 128 U/L 11/17/2024 6:55 AM [facility] Aspartate Aminotrans (AST) 24 10 - 55 U/L 11/17/2024 6:55 AM [facility] Alanine Aminotrans (ALT) 19 10 - 55 U/L 11/17/2024 6:55 AM [facility] Bilirubin, Total 0.2 0.2 - 1.0 mg/dL 11/17/2024 6:55 AM [facility] Protein, Total 6.6 6.3 - 8.3 g/dL 11/17/2024 6:55 AM [facility] Albumin 2.9(L) 3.4 - 4.8 g/dL 11/17/2024 6:55 AM [facility] BUN/Creatinine Ratio 30(H) 10.0 - 25.0 Ratio 11/17/2024 6:55 AM [facility] Globulin 3.7 1.5 - 3.9 g/dL 11/17/2024 6:55 AM [facility] Albumin/Globulin Ratio 0.8(L) 1.0 - 3.0 Ratio 11/17/2024 6:55 AM [facility] Anion Gap 11 7 - 17 11/17/2024 6:55 AM [facility] Blood (Plasma/Serum) 11/17/2024 5:00 AM EST 11/17/2024 5:09 AM EST Adithya Sheriff PA-C LAB [place] [address], [place] [address] * (ABNORMAL) POCT Glucose, Fingerstick (11/16/2024 8:09 [...] TEST O RDERABLES Performing Organization Address City/[facility]/ZIP Co de Phone Number [facility] See Below * (ABNORMAL) POCT Glucose, Fingerstick (11/16/2024 12:04 PM EST) POC Glucose 246(H) 65 - 99 mg/dL 11/16/2024 12:16 PM EST Blood specimen / Unknown 11/16/2024 12:04 PM EST 11/16/2024 12:16 PM EST Dallas Camejo MD POINT OF CARE TEST O RDERABLES Performing Organization Address [facility] Phone Number [facility] See Below * (ABNORMAL) POCT Glucose, Fingerstick (11/16/2024 7:37 AM EST) POC Glucose 211(H) 65 - 99 mg/dL 11/16/2024 7:52 AM EST Blood specimen / Unknown 11/16/2024 7:37 AM EST 11/16/2024 7:52 AM EST Dallas Camejo MD POINT OF CARE TEST O RDERABLES Performing Organization Address [facility] Co de Phone Number [facility] See Below * Phosphorus (AM) (11/16/2024 7:23 AM EST) Phosphorus 3.8 2.7 - 4.5 mg/dL 11/16/2024 8:34 AM EST [facility] Blood (Plasma/Serum) 11/16/2024 7:23 AM EST 11/16/2024 7:51 AM EST Maddison Villalpando MD LAB BLOOD ORDERABLES Performing Organization Address [facility] Co de Phone Number [address] [address], [address] [address] * Magnesium (AM) (11/16/2024 7:23 AM EST) Magnesium 2.1 1.6 - 2.7 mg/dL 11/16/2024 8:34 AM [facility] Blood (Plasma/Serum) 11/16/2024 7:23 AM EST 11/16/2024 7:51 AM EST Maddison Villalpando MD LAB BLOOD ORDERABLES Performing Organization Address City/State/[facility] Co de Phone Number [address] [address], [address] [address] * (ABNORMAL) Basic Metabolic Panel (AM) (11/16/2024 7:23 AM EST) Glucose 190(H) 65 - 99 mg/dL 11/16/2024 8:34 AM [facility] Comment:Fasting: <100 mg/dL, Non-Fasting: <200 mg/dL (ADA 2004) Blood Urea Nitrogen (BUN) 55(H) 8 - 21 mg/dL 11/16/2024 8:34 AM [facility] Creatinine 1.9(H) 0.5 - 1.3 mg/dL 11/16/2024 8:34 AM [facility] eGFR 39(L) >59 11/16/2024 8:34 AM [facility] Comment:CKD-EPI (2020) in mL /min/1.73 sq meters. Sodium 130(L) 136 - 145 mmol/L 11/16/2024 8:34 AM [facility] Potassium 3.6 3.4 - 5.3 mmol/L 11/16/2024 8:34 AM [facility] Chloride 87(L) 98 - 107 mmol/L 11/16/2024 8:34 AM [facility] CO2 32 22 - 33 mmol/L 11/16/2024 8:34 AM [facility] Anion Gap 11 7 - 17 11/16/2024 8:34 AM [facility] Calcium 9.1 8.7 - 10.5 mg/dL 11/16/2024 8:34 AM [facility] BUN/Creatinine Ratio 29(H) 10.0 - 25.0 Ratio 11/16/2024 8:34 AM [facility] Blood (Plasma/Serum) 11/16/2024 7:23 AM EST 11/16/2024 7:51 AM EST Maddison Villalpando MD LAB BLOOD ORDERABLES Performing Organization Address City/[facility]/ZIP Co de Phone Number [address] [address], [address] [address] * (ABNORMAL) Complete Blood Count WITHOUT Differential - in AM (11/16/2024 7:23 AM EST) White Blood Cell Count 10.7 4.0 - 11.0 Thou/uL 11/16/2024 8:10 AM [facility] Platelet Count 408 150 - 450 Thou/uL 11/16/2024 8:10 AM [facility] Hemoglobin 8.1(L) 13.0 - 17.7 g/dL 11/16/2024 8:10 AM [facility] Hematocrit 25.6(L) 39.0 - 54.0 % 11/16/2024 8:10 AM [facility] Red Blood Cell Count 2.97(L) 4.50 - 6.20 Mil/uL 11/16/2024 8:10 AM [facility] MCV 86 80 - 100 fL 11/16/2024 8:10 AM [facility] MCH 27.3 27.0 - 31.0 pg 11/16/2024 8:10 AM [facility] MCHC 31.6 30.0 - 36.0 g/dL 11/16/2024 8:10 AM [facility] RDW 16.8(H) 11.5 - 14.5 % 11/16/2024 8:10 AM [facility] MPV 10.4 7.5 - 12.5 fL 11/16/2024 8:10 AM [facility] Blood Blood specimen / Unknown 11/16/2024 7:23 AM EST 11/16/2024 7:51 AM EST Maddison Villalpando MD LAB BLOOD ORDERABLES [address] [address], [address] [address] * Type and Screen (11/16/2024 7:23 AM EST) ABO/Rh A POSITIVE 11/16/2024 8:39 AM [facility] Antibody Screen NEGATIVE 11/16/2024 8:53 AM [facility] Specimen Expiration 11/19/2024 11/16/2024 8:39 AM [facility] Unit Number [id number] 11/16/2024 9:12 AM [facility] Blood Component Type LEUKOREDUCED RED CELLS 11/16/2024 9:12 AM [facility] Unit Division 00 11/16/2024 9:12 AM [facility] Unit Status REL FROM ALLOC 2:05 AM [facility] Transfusion Status OK TO TRANSFUSE 11/16/2024 9:12 AM [facility] Crossmatch Result Electronically Compatible 11/16/2024 9:12 AM [facility] Unit Number [id number] 11/16/2024 9:12 AM [facility] Blood Component Type LEUKOREDUCED RED CELLS 11/16/2024 9:12 AM [facility] Unit Division 00 11/16/2024 9:12 AM [facility] Unit Status REL FROM ALLOC 2:05 AM [facility] Transfusion Status OK TO TRANSFUSE 11/16/2024 9:12 AM [facility] Crossmatch Result Electronically Compatible 11/16/2024 9:12 AM [facility] Unit Number [id number] 11/16/2024 9:12 AM [facility] Blood Component Type LEUKOREDUCED RED CELLS 11/16/2024 9:12 AM [facility] Unit Division 00 11/16/2024 9:12 AM [facility] Unit Status REL FROM ALLOC 2:05 AM [facility] Transfusion Status OK TO TRANSFUSE 11/16/2024 9:12 AM [facility] Crossmatch Result Electronically Compatible 11/16/2024 9:12 AM [facility] Unit Number [id number] 11/16/2024 9:12 AM [facility] Blood Component Type LEUKOREDUCED RED CELLS 11/16/2024 9:12 AM EST [facility] Unit Division 00 11/16/2024 9:12 AM [facility] Unit Status REL FROM ALLOC 2:05 AM [facility] Transfusion Status OK TO TRANSFUSE 11/16/2024 9:12 AM [facility] Crossmatch Result Electronically Compatible 11/16/2024 9:12 AM [facility] Blood Blood specimen / Unknown 11/16/2024 7:23 AM EST 11/16/2024 7:57 AM EST Comment:Blood Cristina Rodriguez APRN BLOOD BANK TEST OR DERABLES [facility] [place] [address] * (ABNORMAL) POCT Glucose, Fingerstick (11/15/2024 8:14 PM EST) POC Glucose 330(H) 65 - 99 mg/dL 11/15/2024 8:15 PM EST Blood specimen / Unknown 11/15/2024 8:14 PM EST 11/15/2024 8:15 PM EST Dallas Camejo MD POINT OF CARE TEST O RDERABLES [facility] LAB See Below * (ABNORMAL) [...] - 4.5 mg/dL 11/15/2024 9:21 AM EST [facility] Blood (Plasma/Serum) 11/15/2024 8:08 AM EST 11/15/2024 8:57 AM EST Maddison Villalpando MD LAB BLOOD ORDERABLES [address] [address], [address] [address] * Magnesium (AM) (11/15/2024 8:08 AM EST) Magnesium 2.1 1.6 - 2.7 mg/dL 11/15/2024 9:21 AM EST [facility] Blood (Plasma/Serum) 11/15/2024 8:08 AM EST 11/15/2024 8:57 AM EST Maddison Villalpando MD LAB BLOOD ORDERABLES [facility] [address] [place] [address], [address] [address] * (ABNORMAL) Basic Metabolic Panel (AM) (11/15/2024 8:08 AM EST) Glucose 218(H) 65 - 99 mg/dL 11/15/2024 9:21 AM [facility] Comment:Fasting: <100 mg/dL, Non-Fasting: <200 mg/dL (ADA 2004) Blood Urea Nitrogen (BUN) 59(H) 8 - 21 mg/dL 11/15/2024 9:21 AM [facility] Creatinine 1.8(H) 0.5 - 1.3 mg/dL 11/15/2024 9:21 AM [facility] eGFR 42(L) >59 11/15/2024 9:21 AM [facility] Comment:CKD-EPI (2020) in mL /min/1.73 sq meters. Sodium 131(L) 136 - 145 mmol/L 11/15/2024 9:21 AM [facility] Potassium 3.9 3.4 - 5.3 mmol/L 11/15/2024 9:21 AM [facility] Chloride 85(L) 98 - 107 mmol/L 11/15/2024 9:21 AM [facility] CO2 34(H) 22 - 33 mmol/L 11/15/2024 9:21 AM [facility] Anion Gap 12 7 - 17 11/15/2024 9:21 AM [facility] Calcium 9.4 8.7 - 10.5 mg/dL 11/15/2024 9:21 AM [facility] BUN/Creatinine Ratio 33(H) 10.0 - 25.0 Ratio 11/15/2024 9:21 AM [facility] Blood (Plasma/Serum) 11/15/2024 8:08 AM EST 11/15/2024 8:57 AM EST Maddison Villalpando MD LAB BLOOD ORDERABLES [address] [address], [place] [address] * (ABNORMAL) Complete Blood Count WITHOUT Differential - in AM (11/15/2024 8:08 AM EST) Pathologist [facility] White Blood Cell Count 11.8(H) 4.0 - 11.0 Thou/uL 11/15/2024 9:06 AM [facility] Platelet Count 485(H) 150 - 450 Thou/uL 11/15/2024 9:06 AM [facility] Hemoglobin 8.9(L) 13.0 - 17.7 g/dL 11/15/2024 9:06 AM [facility] Hematocrit 28.9(L) 39.0 - 54.0 % 11/15/2024 9:06 AM [facility] Red Blood Cell Count 3.27(L) 4.50 - 6.20 Mil/uL 11/15/2024 9:06 AM [facility] MCV 88 80 - 100 fL 11/15/2024 9:06 AM [facility] MCH 27.2 27.0 - 31.0 pg 11/15/2024 9:06 AM [facility] MCHC 30.8 30.0 - 36.0 g/dL 11/15/2024 9:06 AM [facility] RDW 16.8(H) 11.5 - 14.5 % 11/15/2024 9:06 AM [facility] MPV 10.4 7.5 - 12.5 fL 11/15/2024 9:06 AM [facility] Blood Blood specimen / Unknown 11/15/2024 8:08 AM EST 11/15/2024 8:57 AM EST Maddison Villalpando MD LAB BLOOD ORDERABLES [address] [address], [address] [address] * (ABNORMAL) proBNP, N-terminal (11/15/2024 8:08 AM EST) Pathologist [facility] proBNP, N-terminal 429(H) <125 pg/mL 11/15/2024 9:21 AM EST [facility] Blood Plasma specimen / Unknown 11/15/2024 8:08 AM EST 11/15/2024 8:57 AM EST Valencia Lau [employer] LAB BLOOD ORDERAB LES Performing Organization Address [facility]/ZIP [place] [address], [place] [address] * (ABNORMAL) POCT Glucose, Fingerstick (11/15/2024 7:36 AM EST) POC Glucose 230(H) 65 - 99 mg/dL 11/15/2024 7:54 AM EST Blood specimen / Unknown 11/15/2024 7:36 AM EST 11/15/2024 7:54 AM EST Dallas Camejo MD [facility] See Below * (ABNORMAL) POCT Glucose, Fingerstick (11/14/2024 7:51 PM EST) Pathologist [facility] POC Glucose 252(H) 65 - 99 mg/dL 11/14/2024 7:54 PM EST Blood specimen / Unknown 11/14/2024 7:51 PM EST 11/14/2024 7:54 PM EST Dallas Camejo MD [facility] See Below * (ABNORMAL) POCT Glucose, Fingerstick (11/14/2024 4:10 PM EST) Pathologist [facility] POC Glucose 237(H) 65 - 99 mg/dL [...] [facility] See Below * (ABNORMAL) Complete Blood Count WITHOUT Differential - STAT (11/14/2024 10:31 AM EST) Pathologist [facility] White Blood Cell Count 10.6 4.0 - 11.0 Thou/uL 11/14/2024 11:21 AM [facility] Platelet Count 471(H) 150 - 450 Thou/uL 11/14/2024 11:21 AM [facility] Hemoglobin 8.9(L) 13.0 - 17.7 g/dL 11/14/2024 11:21 AM [facility] Hematocrit 28.9(L) 39.0 - 54.0 % 11/14/2024 11:21 AM [facility] Red Blood Cell Count 3.25(L) 4.50 - 6.20 Mil/uL 11/14/2024 11:21 AM [facility] MCV 89 80 - 100 fL 11/14/2024 11:21 AM [facility] MCH 27.4 27.0 - 31.0 pg 11/14/2024 11:21 AM [facility] MCHC 30.8 30.0 - 36.0 g/dL 11/14/2024 11:21 AM [facility] [facility] RDW 17.1(H) 11.5 - 14.5 % 11/14/2024 11:21 AM [facility] MPV 10.3 7.5 - 12.5 fL 11/14/2024 11:21 AM [facility] Blood Blood specimen / Unknown 11/14/2024 10:31 AM EST 11/14/2024 11:15 AM EST Maddison Villalpando MD LAB BLOOD ORDERABLES Performing Organization Address [facility] [place] [address], [place] [address] * (ABNORMAL) Phosphorus (Routine) (11/14/2024 10:31 AM EST) Phosphorus 6.1(H) 2.7 - 4.5 mg/dL 11/14/2024 11:39 AM EST [facility] Blood (Plasma/Serum) 11/14/2024 10:31 AM EST 11/14/2024 11:15 AM EST Maddison Villalpando MD LAB BLOOD ORDERABLES Performing Organization Address [facility] [place] [address], [place] [address] * Magnesium (Routine) (11/14/2024 10:31 AM EST) Magnesium 2.1 1.6 - 2.7 mg/dL 11/14/2024 11:39 AM EST [facility] Blood (Plasma/Serum) 11/14/2024 10:31 AM EST 11/14/2024 11:15 AM EST Maddison Villalpando MD LAB BLOOD ORDERABLES Performing Organization Address [facility] [place] [address], [place] [address] * (ABNORMAL) Basic Metabolic Panel (STAT) (11/14/2024 10:31 AM EST) Glucose 319(H) 65 - 99 mg/dL 11/14/2024 11:39 AM EST [facility] Comment:Fasting: <100 mg/dL, Non-Fasting: <200 mg/dL (ADA 2005) Blood Urea Nitrogen (BUN) 65(H) 8 - 21 mg/dL 11/14/2024 11:39 AM [facility] Creatinine 2.1(H) 0.5 - 1.3 mg/dL 11/14/2024 11:39 AM [facility] eGFR 35(L) >59 11/14/2024 11:39 AM [facility] Comment:CKD-EPI (2020) in mL /min/1.73 sq meters. Sodium 132(L) 136 - 145 mmol/L 11/14/2024 11:39 AM [facility] Potassium 4.0 3.4 - 5.3 mmol/L 11/14/2024 11:39 AM [facility] Chloride 85(L) 98 - 107 mmol/L 11/14/2024 11:39 AM [facility] CO2 34(H) 22 - 33 mmol/L 11/14/2024 11:39 AM [facility] Anion Gap 13 7 - 17 11/14/2024 11:39 AM [facility] Calcium 9.4 8.7 - 10.5 mg/dL 11/14/2024 11:39 AM [facility] BUN/Creatinine Ratio 31(H) 10.0 - 25.0 Ratio 11/14/2024 11:39 AM [facility] Blood (Plasma/Serum) 11/14/2024 10:31 AM EST 11/14/2024 11:15 AM EST Maddison Villalpando MD LAB BLOOD ORDERABLES Performing Organization Address City/State/[facility] [place] [address], [place] [address] * (ABNORMAL) POCT Glucose, Fingerstick (11/14/2024 7:45 AM EST) POC Glucose 224(H) 65 - 99 mg/dL 11/14/2024 7:46 AM EST Blood specimen / Unknown 11/14/2024 7:45 AM EST 11/14/2024 7:46 AM EST Dallas Camejo MD POINT OF CARE TEST O RDERABLES Performing Organization Address [facility] Phone Number [facility] LAB See Below * (ABNORMAL) POCT Glucose, Fingerstick (11/13/2024 11:30 PM EST) POC Glucose 268(H) 65 - 99 mg/dL 11/13/2024 11:30 PM EST Blood specimen / Unknown 11/13/2024 11:30 PM EST 11/13/2024 11:31 PM EST Dallas Camejo MD POINT OF CARE TEST O RDERALUCILLE Performing Organization Address [facility] Phone Number [facility] LAB See Below * (ABNORMAL) POCT Glucose, Fingerstick (11/13/2024 9:19 PM EST) POC Glucose 366(H) 65 - 99 mg/dL 11/13/2024 9:20 PM EST Blood specimen / Unknown 11/13/2024 9:19 PM EST 11/13/2024 9:20 PM EST Dallas Camejo MD POINT OF CARE TEST O RDERALUCILLE Performing Organization Address [facility] Number [facility] LAB See Below * (ABNORMAL) POCT Glucose, Fingerstick (11/13/2024 4:45 PM EST) POC Glucose 196(H) 65 - 99 mg/dL 11/13/2024 4:50 PM EST Blood specimen / Unknown 11/13/2024 4:45 PM EST 11/13/2024 4:50 PM EST Dallas Camejo MD POINT OF CARE TEST O RDERALUCILLE Performing Organization Address [facility] Phone Number HOSPITAL LAB See Below * (ABNORMAL) POCT Glucose, Fingerstick (11/13/2024 11:54 AM EST) POC Glucose 232(H) 65 - 99 mg/dL 11/13/2024 11:55 AM EST Blood specimen / Unknown 11/13/2024 11:54 AM EST 11/13/2024 11:55 AM EST Dallas Camejo MD POINT OF CARE TEST O RDERABLES Performing Organization Address [facility] Number [facility] LAB See Below * (ABNORMAL) POCT Glucose, Fingerstick (11/13/2024 8:12 AM EST) POC Glucose 159(H) 65 - 99 mg/dL 11/13/2024 8:15 AM EST Blood specimen / Unknown 11/13/2024 8:12 AM EST 11/13/2024 8:15 AM EST Dallas Camejo MD POINT OF CARE TEST O RDERALUCILLE Performing Organization Address [facility] LAB See Below * (ABNORMAL) proBNP, N-terminal (11/13/2024 7:30 AM EST) proBNP, N-terminal 994(H) <125 pg/mL 11/13/2024 11:05 AM EST [facility] Plasma specimen / Unknown 11/13/2024 7:30 AM EST 11/13/2024 8:09 AM EST Maddison Villalpando MD LAB BLOOD ORDERABLES Performing Organization Address [facility] [place] [address], [place] [address] * (ABNORMAL) Phosphorus (AM) (11/13/2024 7:30 AM EST) Phosphorus 4.9(H) 2.7 - 4.5 mg/dL 11/13/2024 8:45 AM EST [facility] Blood (Plasma/Serum) 11/13/2024 7:30 AM EST 11/13/2024 8:09 AM EST Maddison Villalpando MD LAB BLOOD ORDERABLES Performing Organization Address [facility] [place] [address], [place] [address] * Magnesium (AM) (11/13/2024 7:30 AM EST) Pathologist [facility] Magnesium 1.7 1.6 - 2.7 mg/dL 11/13/2024 8:45 AM [facility] Blood (Plasma/Serum) 11/13/2024 7:30 AM EST 11/13/2024 8:09 AM EST Maddison Villalpando MD LAB [place] [address], [place] [address] * (ABNORMAL) Complete Blood Count WITHOUT Differential - in AM (11/13/2024 7:30 AM EST) [facility] White Blood Cell Count 11.8(H) 4.0 - 11.0 Thou/uL 11/13/2024 8:28 AM [facility] Platelet Count 486(H) 150 - 450 Thou/uL 11/13/2024 8:28 AM [facility] Hemoglobin 9.2(L) 13.0 - 17.7 g/dL 11/13/2024 8:28 AM [facility] Hematocrit 29.8(L) 39.0 - 54.0 % 11/13/2024 8:28 AM [facility] Red Blood Cell Count 3.34(L) 4.50 - 6.20 Mil/uL 11/13/2024 8:28 AM [facility] MCV 89 80 - 100 fL 11/13/2024 8:28 AM [facility] MCH 27.5 27.0 - 31.0 pg 11/13/2024 8:28 AM [facility] MCHC 30.9 30.0 - 36.0 g/dL 11/13/2024 8:28 AM [facility] RDW 16.9(H) 11.5 - 14.5 % 11/13/2024 8:28 AM [facility] MPV 9.8 7.5 - 12.5 fL 11/13/2024 8:28 AM [facility] Blood Blood specimen / Unknown 11/13/2024 7:30 AM EST 11/13/2024 8:09 AM EST Maddison Villalpando MD LAB BLOOD ORDERABLES [address] [address], [address] [address] * (ABNORMAL) Basic Metabolic Panel (AM) (11/13/2024 7:30 AM EST) Glucose 154(H) 65 - 99 mg/dL 11/13/2024 8:45 AM [facility] Comment:Fasting: <100 mg/dL, Non-Fasting: <200 mg/dL (ADA 2004) Blood Urea Nitrogen (BUN) 44(H) 8 - 21 mg/dL 11/13/2024 8:45 AM [facility] Creatinine 1.7(H) 0.5 - 1.3 mg/dL 11/13/2024 8:45 AM [facility] eGFR 45(L) >59 11/13/2024 8:45 AM [facility] Comment:CKD-EPI (2020) in mL /min/1.73 sq meters. Sodium 140 136 - 145 mmol/L 11/13/2024 8:45 AM [facility] Potassium 3.6 3.4 - 5.3 mmol/L 11/13/2024 8:45 AM [facility] Chloride 91(L) 98 - 107 mmol/L 11/13/2024 8:45 AM [facility] CO2 35(H) 22 - 33 mmol/L 11/13/2024 8:45 AM [facility] Anion Gap 14 7 - 17 11/13/2024 8:45 AM [facility] Calcium 9.7 8.7 - 10.5 mg/dL 11/13/2024 8:45 AM [facility] BUN/Creatinine Ratio 26(H) 10.0 - 25.0 Ratio 11/13/2024 8:45 AM [facility] Blood (Plasma/Serum) 11/13/2024 7:30 AM EST 11/13/2024 8:09 AM EST Maddison Villalpando MD LAB BLOOD ORDERABLES Performing Organization Address City/[facility] Co de Phone Number [address] [address], [address] [address] * (ABNORMAL) POCT Glucose, Fingerstick (11/13/2024 3:59 AM EST) POC Glucose 156(H) 65 - 99 mg/dL 11/13/2024 4:03 AM EST Blood specimen / Unknown 11/13/2024 3:59 AM EST 11/13/2024 4:03 AM EST Dallas Camejo MD POINT OF CARE TEST O RDERABLES Performing Organization Address [facility] Co de Phone Number [facility] LAB See Below * (ABNORMAL) POCT Glucose, Fingerstick (11/13/2024 12:27 AM EST) POC Glucose 139(H) 65 - 99 mg/dL 11/13/2024 12:31 AM EST Blood specimen / Unknown 11/13/2024 12:27 AM EST 11/13/2024 12:31 AM EST Dallas Camejo MD POINT OF CARE TEST O RDERABLES Performing Organization Address City/[facility]/ZIP Co de Phone Number [facility] LAB See Below * (ABNORMAL) POCT Glucose, Fingerstick (11/12/2024 8:32 PM EST) POC Glucose 248(H) 65 - 99 mg/dL 11/12/2024 8:33 PM EST Blood specimen / Unknown 11/12/2024 8:32 PM EST 11/12/2024 8:33 PM EST Dallas Camejo MD POINT OF CARE TEST O RDERABLES [facility] LAB See Below * (ABNORMAL) [...] * PM DUAL LEAD EVAL WITH PROGRAMMING, [id number] (11/12/2024 1:15 PM EST) Date Time Interrogation Session [id number] 4,157 PACEART Implantable Pulse Generator Watershed Program Manager [employer] PACEART Implantable Pulse Generator Model [id number] Jaime ESCOBAR PACEART Implantable Pulse Generator Serial Number [id number] PACEART Implantable Pulse Generator Type Pacemaker PACEART [...] reset 99.97 % PACEART Otf Statistic AP BATTERY ASSEMBLER DRY CELL Percent 76.74 % PACEART Otf Statistic BATTERY ASSEMBLER DRY CELL Percent 23.23 % PACEART Otf Statistic AP VS Percent 0.01 % PACEART Otf Statistic VS Percent 0.01 % PACEART AT/AF [place] Percent 0 % PACEART Episode Statistic Recent [...] normal range. All original programming restored. Farhana Sanon, RN Maddison Villalpando MD CV CARDIAC SERVICES [...] TEST O RDERABLES Performing Organization Address City/[facility] Co de Phone Number HOSPITAL LAB See Below * Phosphorus (11/12/2024 5:00 AM EST) Phosphorus 4.5 2.7 - 4.5 mg/dL 11/12/2024 6:01 AM EST [facility] Blood (Plasma/Serum) 11/12/2024 5:00 AM EST 11/12/2024 5:22 AM EST Luis Degroot MD LAB BLOOD ORDERABLES Performing Organization Address [facility] [place] [address], [place] [address] * Magnesium (11/12/2024 5:00 AM EST) Magnesium 1.8 1.6 - 2.7 mg/dL 11/12/2024 6:01 AM EST [facility] Blood (Plasma/Serum) 11/12/2024 5:00 AM EST 11/12/2024 5:22 AM EST Luis Degroot MD LAB BLOOD ORDERABLES Performing Organization Address [facility] [place] [address], [place] [address] * (ABNORMAL) Complete Blood Count, WITHOUT Differential (routine) (11/12/2024 5:00 AM EST) White Blood Cell Count 11.1(H) 4.0 - 11.0 Thou/uL 11/12/2024 5:47 AM [facility] Platelet Count 456(H) 150 - 450 Thou/uL 11/12/2024 5:47 AM [facility] Hemoglobin 8.1(L) 13.0 - 17.7 g/dL 11/12/2024 5:47 AM [facility] Hematocrit 26.3(L) 39.0 - 54.0 % 11/12/2024 5:47 AM [facility] Red Blood Cell Count 2.94(L) 4.50 - 6.20 Mil/uL 11/12/2024 5:47 AM [facility] MCV 90 80 - 100 fL 11/12/2024 5:47 AM [facility] MCH 27.6 27.0 - 31.0 pg 11/12/2024 5:47 AM [facility] MCHC 30.8 30.0 - 36.0 g/dL 11/12/2024 5:47 AM [facility] RDW 16.9(H) 11.5 - 14.5 % 11/12/2024 5:47 AM [facility] MPV 9.8 7.5 - 12.5 fL 11/12/2024 5:47 AM [facility] Blood Blood specimen / Unknown 11/12/2024 5:00 AM EST 11/12/2024 5:22 AM EST Luis Degroot MD LAB [place] [address], [place] [address] * (ABNORMAL) Basic Metabolic Panel (11/12/2024 5:00 AM EST) Glucose 126(H) 65 - 99 mg/dL 11/12/2024 6:01 AM [facility] Comment:Fasting: <100 mg/dL, Non-Fasting: <200 mg/dL (ADA 2004) Blood Urea Nitrogen (BUN) 44(H) 8 - 21 mg/dL 11/12/2024 6:01 AM [facility] Creatinine 1.6(H) 0.5 - 1.3 mg/dL 11/12/2024 6:01 AM [facility] eGFR 48(L) >59 11/12/2024 6:01 AM [facility] Comment:CKD-EPI (2021) in mL /min/1.73 sq meters. Sodium 138 136 - 145 mmol/L 11/12/2024 6:01 AM [facility] Potassium 3.7 3.4 - 5.3 mmol/L 11/12/2024 6:01 AM [facility] Chloride 96(L) 98 - 107 mmol/L 11/12/2024 6:01 AM [facility] CO2 30 22 - 33 mmol/L 11/12/2024 6:01 AM [facility] Anion Gap 12 7 - 17 11/12/2024 6:01 AM [facility] Calcium 9.1 8.7 - 10.5 mg/dL 11/12/2024 6:01 AM [facility] BUN/Creatinine Ratio 28(H) 10.0 - 25.0 Ratio 11/12/2024 6:01 AM [facility] Blood (Plasma/Serum) 11/12/2024 5:00 AM EST 11/12/2024 5:22 AM EST Luis Degroot MD LAB [place] [address], [place] [address] * (ABNORMAL) POCT Glucose, Fingerstick (11/12/2024 4:51 [...] TEST O RDERALUCILLE Performing Organization Address [facility] LAB See Below * (ABNORMAL) POCT Glucose, Fingerstick (11/12/2024 12:21 AM EST) POC Glucose 130(H) 65 - 99 mg/dL 11/12/2024 12:22 AM EST Blood specimen / Unknown 11/12/2024 12:21 AM EST 11/12/2024 12:22 AM EST Dallas Camejo MD POINT OF CARE TEST O RDERALUCILLE Performing Organization Address [facility] LAB See Below * (ABNORMAL) POCT Glucose, Fingerstick (11/11/2024 9:17 PM EST) POC Glucose 224(H) 65 - 99 mg/dL 11/11/2024 9:21 PM EST Blood specimen / Unknown 11/11/2024 9:17 PM EST 11/11/2024 9:21 PM EST Dallas Camejo MD POINT OF CARE TEST O RDERALUCILLE Performing Organization Address [facility] LAB See Below * (ABNORMAL) POCT Glucose, Fingerstick (11/11/2024 5:06 PM EST) POC Glucose 149(H) 65 - 99 mg/dL 11/11/2024 5:37 PM EST Blood specimen / Unknown 11/11/2024 5:06 PM EST 11/11/2024 5:37 PM EST Dallas Camejo MD POINT OF CARE TEST O RDERALUCILLE Performing Organization Address [facility] LAB See Below * PM DUAL LEAD EVAL WITH PROGRAMMING, [id number] (11/11/2024 4:33 PM EST) Date Time Interrogation Session [id number] [phone] PACEART Implantable Pulse Generator Watershed Program Manager [employer] PACEART Implantable Pulse Generator Model [id number] Jaime ESCOBAR PACEART Implantable Pulse Generator Serial Number [id number] PACEART Implantable Pulse Generator Type Pacemaker PACEART [...] reset 89.06 % PACEART Otf Statistic AP BATTERY ASSEMBLER DRY CELL Percent 62.37 % PACEART Otf Statistic BATTERY ASSEMBLER DRY CELL Percent 26.83 % PACEART Otf Statistic AP VS Percent 8.97 % PACEART Otf Statistic VS Percent 1.83 % PACEART AT/AF [place] Percent 0 % PACEART Episode Statistic Recent [...] ordered for function. Presenting rhythm: AP / BATTERY ASSEMBLER DRY CELL @ 60 bpm. Underlying rhythm: SB @ 58. Atrial pacing 71.2%, ventricular pacing 89%. Battery and lead parameters evaluated and within normal limits. Normal pacemaker function. Sam Mcgowan RN Nani Bunny [facility] ORDERABLES * ECHOCARDIOGRAM TRANSESOPHAGEAL [...] inserted atraumatically into the esophagus by the profile stitching machine operator. With the patient in a supine position [...] 2.7 - 4.5 mg/dL 11/11/2024 3:00 PM [facility] Blood (Plasma/Serum) 11/11/2024 2:00 PM EST 11/11/2024 2:19 PM EST Nani Hollis PA-C LAB [place] [address], [place] [address] * Magnesium (11/11/2024 2:00 PM EST) Magnesium 1.8 1.6 - 2.7 mg/dL 11/11/2024 3:00 PM [facility] Blood (Plasma/Serum) 11/11/2024 2:00 PM EST 11/11/2024 2:19 PM EST Nani Hollis PA-C LAB [place] [address], [place] [address] * (ABNORMAL) Basic Metabolic Panel (11/11/2024 2:00 PM EST) Glucose 124(H) 65 - 99 mg/dL 11/11/2024 3:00 PM [facility] Comment:Fasting: <100 mg/dL, Non-Fasting: <200 mg/dL (ADA 2004) Blood Urea Nitrogen (BUN) 49(H) 8 - 21 mg/dL 11/11/2024 3:00 PM [facility] Creatinine 1.7(H) 0.5 - 1.3 mg/dL 11/11/2024 3:00 PM [facility] eGFR 45(L) >59 11/11/2024 3:00 PM [facility] Comment:CKD-EPI (2020) in mL /min/1.73 sq meters. Sodium 139 136 - 145 mmol/L 11/11/2024 3:00 PM [facility] Potassium 3.4 3.4 - 5.3 mmol/L 11/11/2024 3:00 PM [facility] Chloride 97(L) 98 - 107 mmol/L 11/11/2024 3:00 PM [facility] CO2 30 22 - 33 mmol/L 11/11/2024 3:00 PM [facility] Anion Gap 12 7 - 17 11/11/2024 3:00 PM [facility] Calcium 9.0 8.7 - 10.5 mg/dL 11/11/2024 3:00 PM [facility] BUN/Creatinine Ratio 29(H) 10.0 - 25.0 Ratio 11/11/2024 3:00 PM [facility] Blood (Plasma/Serum) 11/11/2024 2:00 PM EST 11/11/2024 2:19 PM EST Nani Hollis PA-C [place] [address], [place] [address] * (ABNORMAL) POCT Glucose, Fingerstick (11/11/2024 11:53 [...] TEST O RDGHANSHYAM Performing Organization Address [facility] Co de Phone Number [facility] LAB See Below * (ABNORMAL) POCT Glucose, Fingerstick (11/11/2024 2:35 AM EST) POC Glucose 174(H) 65 - 99 mg/dL 11/11/2024 3:47 AM EST Blood specimen / Unknown 11/11/2024 2:35 AM EST 11/11/2024 3:46 AM EST Dallas Camejo MD POINT OF CARE TEST O CRISTIANERALUCILLE Performing Organization Address [facility] Phone Number [facility] LAB See Below * (ABNORMAL) proBNP, N-terminal (11/11/2024 2:00 AM EST) Pathologist [facility] proBNP, N-terminal 2,964(H) <125 pg/mL 11/11/2024 3:18 AM EST [facility] Blood Plasma specimen / Unknown 11/11/2024 2:00 AM EST 11/11/2024 2:53 AM EST Nani Hollis PA-C LAB BLOOD ORDERABLES Performing Organization Address [facility] [place] [address], [place] [address] * (ABNORMAL) Complete Blood Count, WITHOUT Differential (routine) (11/11/2024 2:00 AM EST) Pathologist [facility] White Blood Cell Count 13.2(H) 4.0 - 11.0 Thou/uL 11/11/2024 2:57 AM EST [facility] Platelet Count 460(H) 150 - 450 Thou/uL 11/11/2024 2:57 AM EST [facility] Hemoglobin 8.2(L) 13.0 - 17.7 g/dL 11/11/2024 2:57 AM [facility] Hematocrit 26.1(L) 39.0 - 54.0 % 11/11/2024 2:57 AM [facility] Red Blood Cell Count 2.91(L) 4.50 - 6.20 Mil/uL 11/11/2024 2:57 AM [facility] MCV 90 80 - 100 fL 11/11/2024 2:57 AM [facility] MCH 28.2 27.0 - 31.0 pg 11/11/2024 2:57 AM [facility] MCHC 31.4 30.0 - 36.0 g/dL 11/11/2024 2:57 AM [facility] RDW 17.0(H) 11.5 - 14.5 % 11/11/2024 2:57 AM [facility] MPV 9.8 7.5 - 12.5 fL 11/11/2024 2:57 AM [facility] Blood Blood specimen / Unknown 11/11/2024 2:00 AM EST 11/11/2024 2:53 AM EST Nani Hollis PA-C [place] [address], [place] [address] * (ABNORMAL) Phosphorus (11/11/2024 2:00 AM EST) Phosphorus 4.7(H) 2.7 - 4.5 mg/dL 11/11/2024 3:18 AM [facility] Blood (Plasma/Serum) 11/11/2024 2:00 AM EST 11/11/2024 2:53 AM EST Nani PATTON-C LAB [place] [address], [place] [address] * Magnesium (11/11/2024 2:00 AM EST) Magnesium 2.0 1.6 - 2.7 mg/dL 11/11/2024 3:18 AM [facility] Blood (Plasma/Serum) 11/11/2024 2:00 AM EST 11/11/2024 2:53 AM EST Nani Hollis PA-C LAB BLOOD ORDERABLES [address] [address], [address] [address] * (ABNORMAL) Basic Metabolic Panel (11/11/2024 2:00 AM EST) Glucose 151(H) 65 - 99 mg/dL 11/11/2024 3:18 AM [facility] Comment:Fasting: <100 mg/dL, Non-Fasting: <200 mg/dL (ADA 2004) Blood Urea Nitrogen (BUN) 56(H) 8 - 21 mg/dL 11/11/2024 3:18 AM [facility] Creatinine 2.0(H) 0.5 - 1.3 mg/dL 11/11/2024 3:18 AM [facility] eGFR 37(L) >59 11/11/2024 3:18 AM [facility] Comment:CKD-EPI (2020) in mL /min/1.73 sq meters. Sodium 137 136 - 145 mmol/L 11/11/2024 3:18 AM [facility] Potassium 3.8 3.4 - 5.3 mmol/L 11/11/2024 3:18 AM [facility] Chloride 99 98 - 107 mmol/L 11/11/2024 3:18 AM [facility] CO2 27 22 - 33 mmol/L 11/11/2024 3:18 AM [facility] Anion Gap 11 7 - 17 11/11/2024 3:18 AM [facility] Calcium 8.7 8.7 - 10.5 mg/dL 11/11/2024 3:18 AM [facility] BUN/Creatinine Ratio 28(H) 10.0 - 25.0 Ratio 11/11/2024 3:18 AM [facility] Blood (Plasma/Serum) 11/11/2024 2:00 AM EST 11/11/2024 2:53 AM EST Nani Hollis PA-C LAB [place] [address], [place] [address] * (ABNORMAL) Hepatic Function Panel (Routine) (11/11/2024 2:00 AM EST) Alkaline Phosphatase 207(H) 45 - 128 U/L 11/11/2024 3:18 AM [facility] Aspartate Aminotrans (AST) 24 10 - 55 U/L 11/11/2024 3:18 AM [facility] Alanine Aminotrans (ALT) 14 10 - 55 U/L 11/11/2024 3:18 AM [facility] Bilirubin, Total 0.2 0.2 - 1.0 mg/dL 11/11/2024 3:18 AM [facility] Protein, Total 6.4 6.3 - 8.3 g/dL 11/11/2024 3:18 AM [facility] Albumin 2.6(L) 3.4 - 4.8 g/dL 11/11/2024 3:18 AM [facility] Bilirubin, Direct 0.1 0 - 0.2 mg/dL 11/11/2024 3:18 AM [facility] Globulin 3.8 1.5 - 3.9 g/dL 11/11/2024 3:18 AM [facility] Albumin/Globulin Ratio 0.7(L) 1.0 - 3.0 Ratio 11/11/2024 3:18 AM [facility] Blood (Plasma/Serum) 11/11/2024 2:00 AM EST 11/11/2024 2:53 AM EST Nani Hollis PA-C LAB BLOOD ORDERABLES [address] [address], [place] [address] * Creatine Kinase (CK) (11/11/2024 2:00 AM EST) Creatine Kinase (CK) 37 24 - 204 U/L 11/11/2024 3:18 AM EST [facility] Blood (Plasma/Serum) 11/11/2024 2:00 AM EST 11/11/2024 2:53 AM EST Nani Hollis PA-C LAB BLOOD ORDERABLES Performing Organization Address [facility]/ZIP Co de Phone Number [address] [address], [address] [address] * (ABNORMAL) POCT Glucose, Fingerstick (11/10/2024 7:55 [...] IMPRESSION: No significant change from prior study aNni Hollis PA-C IMG DIAGNOSTIC IMAGI NG ORDERABLES * (ABNORMAL) POCT Glucose, Fingerstick (11/10/2024 4:01 PM EST) Pathologist [facility] POC Glucose 230(H) 65 - 99 mg/dL 11/10/2024 4:04 PM EST Blood specimen / Unknown 11/10/2024 4:01 PM EST 11/10/2024 4:04 PM EST Dallas Camejo MD POINT OF CARE TEST [facility] See Below * (ABNORMAL) Phosphorus (11/10/2024 12:03 PM EST) [facility] Phosphorus 5.2(H) 2.7 - 4.5 mg/dL 11/10/2024 1:06 PM EST [facility] Blood (Plasma/Serum) 11/10/2024 12:03 PM EST 11/10/2024 12:27 PM EST Nani Hollis PA-C LAB BLOOD ORDERABLES Performing Organization Address [facility] [place] [address], [place] [address] * Magnesium (11/10/2024 12:03 PM EST) [facility] Magnesium 2.0 1.6 - 2.7 mg/dL 11/10/2024 1:06 PM EST [facility] Blood (Plasma/Serum) 11/10/2024 12:03 PM EST 11/10/2024 12:27 PM EST Nani Hollis PA-C LAB BLOOD ORDERABLES Performing Organization Address [facility]/[place]IP [place] [address], [place] [address] * (ABNORMAL) Basic Metabolic Panel (11/10/2024 12:03 PM EST) Glucose 135(H) 65 - 99 mg/dL 11/10/2024 1:06 PM [facility] Comment:Fasting: <100 mg/dL, Non-Fasting: <200 mg/dL (ADA 2004) Blood Urea Nitrogen (BUN) 57(H) 8 - 21 mg/dL 11/10/2024 1:06 PM [facility] Creatinine 1.9(H) 0.5 - 1.3 mg/dL 11/10/2024 1:06 PM [facility] eGFR 39(L) >59 11/10/2024 1:06 PM [facility] Comment:CKD-EPI (2020) in mL /min/1.73 sq meters. Sodium 137 136 - 145 mmol/L 11/10/2024 1:06 PM [facility] Potassium 3.8 3.4 - 5.3 mmol/L 11/10/2024 1:06 PM [facility] Chloride 101 98 - 107 mmol/L 11/10/2024 1:06 PM [facility] CO2 25 22 - 33 mmol/L 11/10/2024 1:06 PM [facility] Anion Gap 11 7 - 17 11/10/2024 1:06 PM [facility] Calcium 8.5(L) 8.7 - 10.5 mg/dL 11/10/2024 1:06 PM [facility] BUN/Creatinine Ratio 30(H) 10.0 - 25.0 Ratio 11/10/2024 1:06 PM [facility] Blood (Plasma/Serum) 11/10/2024 12:03 PM EST 11/10/2024 12:27 PM EST Nani Hollis PA-C LAB BLOOD ORDERABLES [address] [address], [address] [address] * (ABNORMAL) POCT Glucose, Fingerstick (11/10/2024 11:36 AM EST) POC Glucose 143(H) 65 - 99 mg/dL 11/10/2024 11:36 AM EST Blood specimen / Unknown 11/10/2024 11:36 AM EST 11/10/2024 11:37 AM EST Dallas Camejo MD POINT OF CARE TEST O RDERABLES Performing Organization Address City/State/[facility] Co de Phone Number [facility] LAB See Below * (ABNORMAL) POCT Glucose, Fingerstick (11/10/2024 7:42 AM EST) POC Glucose 134(H) 65 - 99 mg/dL 11/10/2024 7:43 AM EST Blood specimen / Unknown 11/10/2024 7:42 AM EST 11/10/2024 7:43 AM EST Dallas Camejo MD POINT OF CARE TEST O RDERABLES Performing Organization Address [facility] Phone Number [facility] LAB See Below * (ABNORMAL) POCT Glucose, Fingerstick (11/10/2024 2:02 AM EST) POC Glucose 126(H) 65 - 99 mg/dL 11/10/2024 2:03 AM EST Blood specimen / Unknown 11/10/2024 2:02 AM EST 11/10/2024 2:03 AM EST Dallas Camejo MD POINT OF CARE TEST O RDERABLES Performing Organization Address [facility] Co de Phone Number [facility] LAB See Below * (ABNORMAL) Phosphorus (11/10/2024 12:04 AM EST) Phosphorus 5.6(H) 2.7 - 4.5 mg/dL 11/10/2024 1:09 AM EST [facility] Blood (Plasma/Serum) 11/10/2024 12:04 AM EST 11/10/2024 12:33 AM EST Claire Garibay PA-C LAB BLOOD ORDERABLES Performing Organization Address City/[facility] Co de Phone Number [address] [address], [place] [address] * Magnesium (11/10/2024 12:04 AM EST) Magnesium 2.1 1.6 - 2.7 mg/dL 11/10/2024 1:09 AM [facility] Blood (Plasma/Serum) 11/10/2024 12:04 AM EST 11/10/2024 12:33 AM EST Claire Garibay PA-C LAB [place] [address], [place] [address] * (ABNORMAL) Basic Metabolic Panel (11/10/2024 12:04 AM EST) Glucose 122(H) 65 - 99 mg/dL 11/10/2024 1:09 AM [facility] Comment:Fasting: <100 mg/dL, Non-Fasting: <200 mg/dL (ADA 2005) Blood Urea Nitrogen (BUN) 56(H) 8 - 21 mg/dL 11/10/2024 1:09 AM [facility] Creatinine 2.0(H) 0.5 - 1.3 mg/dL 11/10/2024 1:09 AM [facility] eGFR 37(L) >59 11/10/2024 1:09 AM [facility] Comment:CKD-EPI (2020) in mL /min/1.73 sq meters. Sodium 135(L) 136 - 145 mmol/L 11/10/2024 1:09 AM [facility] Potassium 3.8 3.4 - 5.3 mmol/L 11/10/2024 1:09 AM [facility] Chloride 100 98 - 107 mmol/L 11/10/2024 1:09 AM [facility] CO2 24 22 - 33 mmol/L 11/10/2024 1:09 AM [facility] Anion Gap 11 7 - 17 11/10/2024 1:09 AM [facility] Calcium 8.2(L) 8.7 - 10.5 mg/dL 11/10/2024 1:09 AM [facility] BUN/Creatinine Ratio 28(H) 10.0 - 25.0 Ratio 11/10/2024 1:09 AM [facility] Blood (Plasma/Serum) 11/10/2024 12:04 AM EST 11/10/2024 12:33 AM EST Claire Garibay PA-C LAB BLOOD ORDERABLES Performing Organization Address City/State/[facility] [place] [address], [place] [address] * (ABNORMAL) COMPLETE BLOOD COUNT, WITHOUT DIFFERENTIAL (11/10/2024 12:04 AM EST) White Blood Cell Count 13.5(H) 4.0 - 11.0 Thou/uL 11/10/2024 12:47 AM [facility] Platelet Count 445 150 - 450 Thou/uL 11/10/2024 12:47 AM [facility] Hemoglobin 7.6(L) 13.0 - 17.7 g/dL 11/10/2024 12:47 AM [facility] Hematocrit 25.2(L) 39.0 - 54.0 % 11/10/2024 12:47 AM [facility] Red Blood Cell Count 2.75(L) 4.50 - 6.20 Mil/uL 11/10/2024 12:47 AM [facility] MCV 92 80 - 100 fL 11/10/2024 12:47 AM [facility] MCH 27.6 27.0 - 31.0 pg 11/10/2024 12:47 AM [facility] MCHC 30.2 30.0 - 36.0 g/dL 11/10/2024 12:47 AM [facility] RDW 17.2(H) 11.5 - 14.5 % 11/10/2024 12:47 AM [facility] MPV 9.7 7.5 - 12.5 fL 11/10/2024 12:47 AM [facility] Blood Blood specimen / Unknown 11/10/2024 12:04 AM EST 11/10/2024 12:33 AM EST Claire Garibay PA-C LAB BLOOD ORDERABLES Performing Organization Address City/[facility]/ZIP Co de Phone Number [address] [address], [address] [address] * (ABNORMAL) POCT Glucose, Fingerstick (11/09/2024 8:03 PM EST) POC Glucose 152(H) 65 - 99 mg/dL 11/09/2024 8:04 PM EST Blood specimen / Unknown 11/09/2024 8:03 PM EST 11/09/2024 8:04 PM EST Dallas Camejo MD POINT OF CARE TEST O RDERABLES Performing Organization Address [facility]/ZIP Co de Phone Number [facility] LAB See Below * (ABNORMAL) POCT Glucose, Fingerstick (11/09/2024 3:53 PM EST) POC Glucose 222(H) 65 - 99 mg/dL 11/09/2024 8:04 PM EST Blood specimen / Unknown 11/09/2024 3:53 PM EST 11/09/2024 8:04 PM EST Dallas Camejo MD POINT OF CARE TEST O RDERABLES Performing Organization Address City/[facility]/ZIP Co de Phone Number [facility] LAB See Below * (ABNORMAL) POCT Glucose, Fingerstick (11/09/2024 11:47 AM EST) POC Glucose 146(H) 65 - 99 mg/dL 11/09/2024 11:53 AM EST Blood specimen / Unknown 11/09/2024 11:47 AM EST 11/09/2024 11:53 AM EST Dallas Camejo MD POINT OF CARE TEST O RDERABLES [facility] LAB See Below * (ABNORMAL) proBNP, N-terminal (11/09/2024 10:04 AM EST) proBNP, N-terminal 4,654(H) <125 pg/mL 11/09/2024 12:58 PM EST [facility] Plasma specimen / Unknown 11/09/2024 10:04 AM EST 11/09/2024 10:25 AM EST Claire Garibay PA-C LAB BLOOD ORDERABLES Performing Organization Address [facility] Co de Phone Number [facility] [address] [place] [address], [facility] [address] [place] [address] * (ABNORMAL) Procalcitonin (11/09/2024 10:04 AM EST) Procalcitonin 0.40(H) <0.09 ng/mL 11/09/2024 11:01 AM EST [facility] Comment: (NOTE) ?Procalcitonin (PCT) Guided Antibiotic [...] LAB BLOOD ORDERABLES Performing Organization Address [facility]/ZIP [place] [address], [place] [address] * (ABNORMAL) POCT Glucose, Fingerstick (11/09/2024 7:29 AM EST) Pathologist [facility] POC Glucose 153(H) 65 - 99 mg/dL 11/09/2024 7:33 AM EST Blood specimen / Unknown 11/09/2024 7:29 AM EST 11/09/2024 7:33 AM EST Dallas Camejo MD POINT OF CARE TEST O RDERABLES Performing Organization Address [facility]/ZIP Co de Phone Number HOSPITAL LAB See Below * (ABNORMAL) Phosphorus (11/09/2024 1:50 AM EST) Pathologist [facility] Phosphorus 5.2(H) 2.7 - 4.5 mg/dL 11/09/2024 2:56 AM [facility] Blood (Plasma/Serum) 11/09/2024 1:50 AM EST 11/09/2024 2:31 AM EST Shay Martin MD LAB BLOOD ORDERAB LES Performing Organization Address [facility] [place] [address], [place] [address] * Magnesium (11/09/2024 1:50 AM EST) Magnesium 2.3 1.6 - 2.7 mg/dL 11/09/2024 2:56 AM [facility] Blood (Plasma/Serum) 11/09/2024 1:50 AM EST 11/09/2024 2:31 AM EST Shay Martin MD LAB BLOOD ORDERAB LES Performing Organization Address City/[facility] [place] [address], [place] [address] * (ABNORMAL) COMPLETE BLOOD COUNT, WITHOUT DIFFERENTIAL (11/09/2024 1:50 AM EST) Pathologist [facility] White Blood Cell Count 11.9(H) 4.0 - 11.0 Thou/uL 11/09/2024 2:36 AM [facility] Platelet Count 405 150 - 450 Thou/uL 11/09/2024 2:36 AM [facility] Hemoglobin 7.7(L) 13.0 - 17.7 g/dL 11/09/2024 2:36 AM [facility] Hematocrit 24.9(L) 39.0 - 54.0 % 11/09/2024 2:36 AM [facility] Red Blood Cell Count 2.72(L) 4.50 - 6.20 Mil/uL 11/09/2024 2:36 AM [facility] MCV 92 80 - 100 fL 11/09/2024 2:36 AM [facility] MCH 28.3 27.0 - 31.0 pg 11/09/2024 2:36 AM [facility] MCHC 30.9 30.0 - 36.0 g/dL 11/09/2024 2:36 AM [facility] RDW 17.1(H) 11.5 - 14.5 % 11/09/2024 2:36 AM [facility] MPV 9.6 7.5 - 12.5 fL 11/09/2024 2:36 AM [facility] Blood Blood specimen / Unknown 11/09/2024 1:50 AM EST 11/09/2024 2:31 AM EST Shay Martin MD LAB [place] [address], [place] [address] * (ABNORMAL) Basic Metabolic Panel (11/09/2024 1:50 AM EST) Glucose 117(H) 65 - 99 mg/dL 11/09/2024 2:56 AM [facility] Comment:Fasting: <100 mg/dL, Non-Fasting: <200 mg/dL (ADA 2004) Blood Urea Nitrogen (BUN) 46(H) 8 - 21 mg/dL 11/09/2024 2:56 AM [facility] Creatinine 1.8(H) 0.5 - 1.3 mg/dL 11/09/2024 2:56 AM [facility] eGFR 42(L) >59 11/09/2024 2:56 AM [facility] Comment:CKD-EPI (2020) in mL /min/1.73 sq meters. Sodium 139 136 - 145 mmol/L 11/09/2024 2:56 AM [facility] Potassium 3.6 3.4 - 5.3 mmol/L 11/09/2024 2:56 AM [facility] Chloride 101 98 - 107 mmol/L 11/09/2024 2:56 AM [facility] CO2 25 22 - 33 mmol/L 11/09/2024 2:56 AM [facility] Anion Gap 13 7 - 17 11/09/2024 2:56 AM [facility] Calcium 8.2(L) 8.7 - 10.5 mg/dL 11/09/2024 2:56 AM EST [facility] BUN/Creatinine Ratio 26(H) 10.0 - 25.0 Ratio 11/09/2024 2:56 AM EST [facility] Blood (Plasma/Serum) 11/09/2024 1:50 AM EST 11/09/2024 2:31 AM EST Shay Martin MD LAB [place] [address], [place] [address] * (ABNORMAL) POCT Glucose, Fingerstick (11/09/2024 1:41 AM EST) POC Glucose 124(H) 65 - 99 mg/dL 11/09/2024 1:42 AM EST Blood specimen / Unknown 11/09/2024 1:41 AM EST 11/09/2024 1:42 AM EST Dallas Camejo MD POINT OF CARE TEST O [facility] LAB See Below * (ABNORMAL) [...] to verify the correct patient, procedure, equipment, mission support specialist and site/side marked as required. [...] Blood Gas, Venous (11/08/2024 5:46 PM EST) [facility] Venous Blood PH 7.35 7.33 - 7.43 11/08/2024 6:00 PM [facility] Venous pCO2 49 35 - 50 mmHG 11/08/2024 6:00 PM [facility] Venous pO2 45 0 - 60 mmHG 11/08/2024 6:00 PM [facility] Venous Total CO2 28 23 - 29 mmol/L 11/08/2024 6:00 PM [facility] Respiratory Info NASAL 6 L/MIN 11/08/2024 5:29 PM EST Base Excess 0.9 mmol/L 11/08/2024 6:00 PM [facility] Comment:Reference Range: Neg ative 2 to Positive 3 Blood Blood specimen / Unknown 11/08/2024 5:46 PM EST 11/08/2024 5:55 PM EST Eunice Garrison APRN LAB BLOOD ORDERA BLES Performing Organization Address City/[facility]/ZIP [place] [address], [place] [address] * (ABNORMAL) Phosphorus (Routine) (11/08/2024 5:46 PM EST) [facility] Phosphorus 4.9(H) 2.7 - 4.5 mg/dL 11/08/2024 7:23 PM [facility] Blood (Plasma/Serum) 11/08/2024 5:46 PM EST 11/08/2024 6:51 PM EST Eunice Garrison APRN LAB BLOOD ORDERA BLES Performing Organization Address City/[facility]/ZIP [place] [address], [place] [address] * Magnesium (Routine) (11/08/2024 5:46 PM EST) Magnesium 1.9 1.6 - 2.7 mg/dL 11/08/2024 7:23 PM [facility] Blood (Plasma/Serum) 11/08/2024 5:46 PM EST 11/08/2024 6:51 PM EST Eunice Garrison COLLISION MECHANIC LAB [place] [address], [place] [address] * (ABNORMAL) Basic Metabolic Panel (Routine) (11/08/2024 5:46 PM EST) Glucose 134(H) 65 - 99 mg/dL 11/08/2024 7:23 PM [facility] Comment:Fasting: <100 mg/dL, Non-Fasting: <200 mg/dL (ADA 2005) Blood Urea Nitrogen (BUN) 45(H) 8 - 21 mg/dL 11/08/2024 7:23 PM [facility] Creatinine 1.7(H) 0.5 - 1.3 mg/dL 11/08/2024 7:23 PM [facility] eGFR 45(L) >59 11/08/2024 7:23 PM [facility] Comment:CKD-EPI (2020) in mL /min/1.73 sq meters. Sodium 141 136 - 145 mmol/L 11/08/2024 7:23 PM [facility] Potassium 3.3(L) 3.4 - 5.3 mmol/L 11/08/2024 7:23 PM [facility] Chloride 102 98 - 107 mmol/L 11/08/2024 7:23 PM [facility] CO2 26 22 - 33 mmol/L 11/08/2024 7:23 PM [facility] Anion Gap 13 7 - 17 11/08/2024 7:23 PM [facility] Calcium 8.6(L) 8.7 - 10.5 mg/dL 11/08/2024 7:23 PM [facility] BUN/Creatinine Ratio 26(H) 10.0 - 25.0 Ratio 11/08/2024 7:23 PM [facility] Blood (Plasma/Serum) 11/08/2024 5:46 PM EST 11/08/2024 6:51 PM EST Eunice Garrison COLLISION MECHANIC LAB BLOOD ORDERA BLES [address] [address], [address] [address] * XR Chest 1 view-Portable (STAT) (11/08/2024 [...] prior study. Interpreted by: ??Bashir Barrientos MD Police Superintendent I personally reviewed the images and the [...] prior study. Interpreted by: Bashir Barrientos MD Police Superintendent I personally reviewed the images and the resident's preliminary report and AGREE with the report as it is now presented ([id number]). Eunice Garrison APRN IMG DIAGNOSTIC I MAGING ORDERABLES * (ABNORMAL) POCT Glucose, Fingerstick (11/08/2024 5:34 PM EST) [facility] POC Glucose 170(H) 65 - 99 mg/dL 11/08/2024 7:52 PM EST Blood specimen / Unknown 11/08/2024 5:34 PM EST 11/08/2024 7:52 PM EST Dallas Camejo MD POINT OF CARE TEST O RDERABLES HOSPITAL LAB See Below * (ABNORMAL) POCT Glucose, Fingerstick (11/08/2024 11:28 AM EST) [facility] POC Glucose 162(H) 65 - 99 mg/dL 11/08/2024 11:29 AM EST Blood specimen / Unknown 11/08/2024 11:28 AM EST 11/08/2024 11:29 AM EST Dallas Cameoj MD POINT OF [...] Glucose, Fingerstick (11/08/2024 2:03 AM EST) Pathologist [facility] POC Glucose 209(H) 65 - 99 mg/dL 11/08/2024 2:59 AM EST Blood specimen / Unknown 11/08/2024 2:03 AM EST 11/08/2024 2:59 AM EST Dallas Camejo MD POINT OF CARE TEST O RDERABLES HOSPITAL LAB See Below * (ABNORMAL) High Sensitivity Troponin T (Once) (11/08/2024 12:05 AM EST) [facility] High Sensitivity Troponin T 26(H) <23 ng/L 11/08/2024 12:39 AM EST [facility] Delta (Change) NO CHANGE <3 11/08/2024 12:39 AM EST [facility] Blood (Plasma/Serum) 11/08/2024 12:05 AM EST 11/08/2024 12:16 AM EST Kayla Orona APRN LAB BLOOD ORDERABLES [address] [address], [address] [address] * Creatine Kinase (CK) (11/08/2024 12:05 AM EST) [facility] Creatine Kinase (CK) 91 24 - 204 U/L 11/08/2024 12:39 AM EST [facility] Blood (Plasma/Serum) 11/08/2024 12:05 AM EST 11/08/2024 12:16 AM EST [facility] LAB BLOOD ORDERABLES Performing Organization Address City/[facility]/Z[place] [address], [place] [address] * (ABNORMAL) proBNP, N-terminal (11/08/2024 12:05 AM EST) proBNP, N-terminal 4,241(H) <125 pg/mL 11/08/2024 12:39 AM [facility] Blood Plasma specimen / Unknown 11/08/2024 12:05 AM EST 11/08/2024 12:16 AM EST [facility] LAB BLOOD ORDERABLES Performing Organization Address [facility] [place] [address], [place] [address] * (ABNORMAL) HEPATIC FUNCTION PANEL (11/08/2024 12:05 AM EST) Alkaline Phosphatase 226(H) 45 - 128 U/L 11/08/2024 12:39 AM [facility] Aspartate Aminotrans (AST) 24 10 - 55 U/L 11/08/2024 12:39 AM [facility] Alanine Aminotrans (ALT) 24 10 - 55 U/L 11/08/2024 12:39 AM [facility] Bilirubin, Total <0.2(L) 0.2 - 1.0 mg/dL 11/08/2024 12:39 AM [facility] Protein, Total 5.5(L) 6.3 - 8.3 g/dL 11/08/2024 12:39 AM [facility] Albumin 2.3(L) 3.4 - 4.8 g/dL 11/08/2024 12:39 AM [facility] Bilirubin, Direct 0.1 0 - 0.2 mg/dL 11/08/2024 12:39 AM [facility] Globulin 3.2 1.5 - 3.9 g/dL 11/08/2024 12:39 AM [facility] Albumin/Globulin Ratio 0.7(L) 1.0 - 3.0 Ratio 11/08/2024 12:39 AM [facility] Blood (Plasma/Serum) 11/08/2024 12:05 AM EST 11/08/2024 12:16 AM EST Kayla Orona APRN LAB BLOOD ORDERABLES Performing Organization Address City/State/[facility] [place] [address], [address] [address] * (ABNORMAL) COMPLETE BLOOD COUNT, WITHOUT DIFFERENTIAL (11/08/2024 12:05 AM EST) White Blood Cell Count 13.1(H) 4.0 - 11.0 Thou/uL 11/08/2024 12:22 AM [facility] Platelet Count 378 150 - 450 Thou/uL 11/08/2024 12:22 AM [facility] Hemoglobin 7.9(L) 13.0 - 17.7 g/dL 11/08/2024 12:22 AM [facility] Hematocrit 25.6(L) 39.0 - 54.0 % 11/08/2024 12:22 AM [facility] Red Blood Cell Count 2.83(L) 4.50 - 6.20 Mil/uL 11/08/2024 12:22 AM [facility] MCV 91 80 - 100 fL 11/08/2024 12:22 AM [facility] MCH 27.9 27.0 - 31.0 pg 11/08/2024 12:22 AM [facility] MCHC 30.9 30.0 - 36.0 g/dL 11/08/2024 12:22 AM [facility] RDW 16.9(H) 11.5 - 14.5 % 11/08/2024 12:22 AM [facility] MPV 9.3 7.5 - 12.5 fL 11/08/2024 12:22 AM [facility] Blood Blood specimen / Unknown 11/08/2024 12:05 AM EST 11/08/2024 12:16 AM EST Kayla Oronago COLLISION MECHANIC LAB BLOOD ORDERABLES Performing Organization Address [facility] Co de Phone Number [address] [address], [address] [address] * (ABNORMAL) Phosphorus (11/08/2024 12:05 AM EST) Phosphorus 5.2(H) 2.7 - 4.5 mg/dL 11/08/2024 12:39 AM [facility] Blood (Plasma/Serum) 11/08/2024 12:05 AM EST 11/08/2024 12:16 AM EST [facility] Performing Organization Address [facility]/ZIP Co de Phone Number [address] [address], [place] [address] * Magnesium (11/08/2024 12:05 AM EST) Magnesium 2.0 1.6 - 2.7 mg/dL 11/08/2024 12:39 AM [facility] Blood (Plasma/Serum) 11/08/2024 12:05 AM EST 11/08/2024 12:16 AM EST [facility] BLOOD ORDERABLES Performing Organization Address City/[facility]/ZIP [place] [address], [address] [address] * (ABNORMAL) Basic Metabolic Panel (11/08/2024 12:05 AM EST) Glucose 231(H) 65 - 99 mg/dL 11/08/2024 12:39 AM [facility] Comment:Fasting: <100 mg/dL, Non-Fasting: <200 mg/dL (ADA 2005) Blood Urea Nitrogen (BUN) 48(H) 8 - 21 mg/dL 11/08/2024 12:39 AM [facility] Creatinine 1.6(H) 0.5 - 1.3 mg/dL 11/08/2024 12:39 AM [facility] eGFR 48(L) >59 11/08/2024 12:39 AM [facility] Comment:CKD-EPI (2020) in mL /min/1.73 sq meters. Sodium 133(L) 136 - 145 mmol/L 11/08/2024 12:39 AM [facility] Potassium 3.8 3.4 - 5.3 mmol/L 11/08/2024 12:39 AM [facility] Chloride 98 98 - 107 mmol/L 11/08/2024 12:39 AM [facility] CO2 21(L) 22 - 33 mmol/L 11/08/2024 12:39 AM [facility] Anion Gap 14 7 - 17 11/08/2024 12:39 AM [facility] Calcium 7.9(L) 8.7 - 10.5 mg/dL 11/08/2024 12:39 AM [facility] BUN/Creatinine Ratio 30(H) 10.0 - 25.0 Ratio 11/08/2024 12:39 AM [facility] Blood (Plasma/Serum) 11/08/2024 12:05 AM EST 11/08/2024 12:16 AM EST Kayla Orona APRN LAB [place] [address], [place] [address] * (ABNORMAL) POCT Glucose, Fingerstick (11/07/2024 7:47 PM EST) Pathologist [facility] POC Glucose 261(H) 65 - 99 mg/dL 11/07/2024 7:53 PM EST Blood specimen / Unknown 11/07/2024 7:47 PM EST 11/07/2024 7:53 PM EST Dallas Camejo MD POINT OF CARE TEST O RDERABLES HOSPITAL LAB See Below * Respiratory PCR Panel (11/07/2024 6:30 PM EST) Adenovirus Not Detected Not Detected 11/08/2024 12:23 AM [facility] Coronavirus 229E Not Detected Not Detected 11/08/2024 12:23 AM [facility] Coronavirus HKU1 Not Detected Not Detected 11/08/2024 12:23 AM [facility] Coronavirus NL63 Not Detected Not Detected 11/08/2024 12:23 AM [facility] Coronavirus OC43 Not Detected Not Detected 11/08/2024 12:23 AM [facility] Human Metapneumovirus Not Detected Not Detected 11/08/2024 12:23 AM [facility] Rhinovirus/Enterov irus Not Detected Not Detected 11/08/2024 12:23 AM [facility] Influenza A Not Detected Not Detected 11/08/2024 12:23 AM [facility] Influenza B Not Detected Not Detected 11/08/2024 12:23 AM [facility] Parainfluenza 1 (PIV1) Not Detected Not Detected 11/08/2024 12:23 AM [facility] Parainfluenza 2 (PIV2) Not Detected Not Detected 11/08/2024 12:23 AM [facility] Parainfluenza 3 (PIV3) Not Detected Not Detected 11/08/2024 12:23 AM [facility] Parainfluenza 4 (PIV4) Not Detected Not Detected 11/08/2024 12:23 AM [facility] Respiratory Syncytial Virus Not Detected Not Detected 11/08/2024 12:23 AM [facility] Bordetella pertussis Not Detected Not Detected 11/08/2024 12:23 AM [facility] Chlamydophila pneumoniae Not Detected Not Detected 11/08/2024 12:23 AM [facility] Mycoplasma pneumoniae Not Detected Not Detected 11/08/2024 12:23 AM [facility] Bordetella parapertussis Not Detected Not Detected 11/08/2024 12:23 AM [facility] SARS CoV 2 Not Detected Not Detected 11/08/2024 12:23 AM [facility] X-Specimen 24 Nasopharyngeal swab / Unknown 11/07/2024 6:30 PM EST 11/07/2024 8:00 PM EST Kayla Orona APRN MICROBIOLOGY - GENER AL ORDERABLES Performing Organization Address City/[facility]/ZIP Co de Phone Number [facility] [address] [place] [address], * (ABNORMAL) High Sensitivity Troponin T (Once) (11/07/2024 4:12 PM EST) High Sensitivity Troponin T 29(H) <23 ng/L 11/07/2024 5:28 PM EST [facility] Delta (Change) 3(H) <3 11/07/2024 5:28 PM EST [facility] Comment:Increased Blood (Plasma/Serum) 11/07/2024 4:12 PM EST 11/07/2024 5:01 PM EST Kayla Orona [facility] BLOOD ORDERABLES Performing Organization Address [facility]/[place] [address], [place] [address] * (ABNORMAL) Phosphorus (11/07/2024 4:12 PM EST) Pathologist [facility] Phosphorus 4.7(H) 2.7 - 4.5 mg/dL 11/07/2024 5:28 PM EST [facility] Blood (Plasma/Serum) 11/07/2024 4:12 PM EST 11/07/2024 5:01 PM EST Kayla Orona [facility] LAB BLOOD ORDERABLES Performing Organization Address City/[facility] [place] [address], [place] [address] * Magnesium (11/07/2024 4:12 PM EST) Magnesium 2.2 1.6 - 2.7 mg/dL 11/07/2024 5:28 PM [facility] Blood (Plasma/Serum) 11/07/2024 4:12 PM EST 11/07/2024 5:01 PM EST Kayla Orona APRN LAB BLOOD ORDERABLES [facility] [address] [place] [address], [place] [address] * (ABNORMAL) Basic Metabolic Panel (11/07/2024 4:12 PM EST) Glucose 183(H) 65 - 99 mg/dL 11/07/2024 5:28 PM [facility] Comment:Fasting: <100 mg/dL, Non-Fasting: <200 mg/dL (ADA 2004) Blood Urea Nitrogen (BUN) 47(H) 8 - 21 mg/dL 11/07/2024 5:28 PM [facility] Creatinine 1.6(H) 0.5 - 1.3 mg/dL 11/07/2024 5:28 PM [facility] eGFR 48(L) >59 11/07/2024 5:28 PM [facility] Comment:CKD-EPI (2020) in mL /min/1.73 sq meters. Sodium 131(L) 136 - 145 mmol/L 11/07/2024 5:28 PM [facility] Potassium 3.7 3.4 - 5.3 mmol/L 11/07/2024 5:28 PM [facility] Chloride 98 98 - 107 mmol/L 11/07/2024 5:28 PM [facility] CO2 21(L) 22 - 33 mmol/L 11/07/2024 5:28 PM [facility] Anion Gap 12 7 - 17 11/07/2024 5:28 PM [facility] Calcium 8.1(L) 8.7 - 10.5 mg/dL 11/07/2024 5:28 PM [facility] BUN/Creatinine Ratio 29(H) 10.0 - 25.0 Ratio 11/07/2024 5:28 PM [facility] Blood (Plasma/Serum) 11/07/2024 4:12 PM EST 11/07/2024 5:01 PM EST Kayla Orona APRN LAB BLOOD ORDERABLES Performing Organization Address City/[facility]/ZIP Co de Phone Number [address] [address], [address] [address] * (ABNORMAL) POCT Glucose, Fingerstick (11/07/2024 3:53 PM EST) POC Glucose 179(H) 65 - 99 mg/dL 11/07/2024 3:58 PM EST Blood specimen / Unknown 11/07/2024 3:53 PM EST 11/07/2024 3:58 PM EST Dallas Camejo MD POINT [facility] CARE TEST [facility] LAB See Below * ECG 12 lead (11/07/2024 2:58 PM EST) Systolic BP 116 mmHg EKG [facility] Diastolic BP 57 mmHg EKG [facility] Ventricular rate 62 BPM EKG [facility] Atrial rate 55 BPM EKG [facility] QRS duration 168 ms EKG [facility] Q-T interval 506 ms EKG [facility] QTC calculation (Bazett) 513 ms EKG [facility] R axis 104 degrees EKG [facility] T axis -39 degrees EKG [facility] 11/07/2024 2:58 PM EST Narrative EKG [facility] - 11/07/2024 6:25 PM EST Ventricular-paced [...] PM Dallas Camejo MD ECG ORDERABLES EKG [facility] * BLOOD CULTURE Peripheral (11/07/2024 1:02 PM EST) Culture Sterile after 5 days 11/12/2024 7:50 AM EST [facility] Microbiology Peripheral blood specimen / Unknown 11/07/2024 1:02 PM EST 11/07/2024 1:23 PM EST Chris Taylor MD LAB AMB MICRO ORDERA BLES Performing Organization Address City/[facility]/ZIP Co de Phone Number [facility] [address] [place] [address], * BLOOD CULTURE Peripheral (11/07/2024 12:57 PM EST) Culture Sterile after 5 days 11/12/2024 7:50 AM EST [facility] Microbiology Peripheral blood specimen / Unknown 11/07/2024 12:57 PM EST 11/07/2024 1:49 PM EST Chris Taylor MD LAB AMB MICRO ORDERA BLES Performing Organization Address City/[facility] Co de Phone Number [facility] [address] [place] [address], * (ABNORMAL) Blood Gas, Arterial (STAT) (11/07/2024 12:36 PM EST) pH, Arterial 7.38 7.35 - 7.45 11/07/2024 1:02 PM EST [facility] pCO2, Arterial 36 32 - 45 mmHG 11/07/2024 1:02 PM [facility] pO2, Arterial 119(H) 75 - 95 mmHG 11/07/2024 1:02 PM [facility] CO2, Total 22 22 - 28 mmol/L 11/07/2024 1:02 PM [facility] Respiratory Info OTHER 11/07/19 12:36 PM EST Base Deficiency 3.5 mmol/L 1:02 PM [facility] Comment:Reference Range: Neg ative 2 to Positive 3 Blood Blood specimen / Unknown 11/07/2024 12:36 PM EST 11/07/2024 12:50 PM EST Kayla Orona APRN LAB BLOOD ORDERABLES Performing Organization Address [facility]/ZIP Co de Phone Number [address] [address], [address] [address] * (ABNORMAL) POCT Glucose, Fingerstick (11/07/2024 12:29 [...] to prior. Interpreted by: ??Roberto Tolbert MD Police Superintendent I personally reviewed the images and the [...] to prior. Interpreted by: Roberto Tolbert MD Police Superintendent I personally reviewed the images and the resident's preliminary report and AGREE with the report as it is now presented (RADPAL1). Juaquin Kern MD IMG DIAGNOSTIC [place] GING ORDERABLES * (ABNORMAL) High Sensitivity Troponin T (11/07/2024 8:13 AM EST) High Sensitivity Troponin T 26(H) <23 ng/L 11/07/2024 12:53 PM EST [facility] Delta (Change) NO PREVIOUS RESULT <3 11/07/2024 12:53 PM EST [facility] Plasma/Serum 11/07/2024 8:13 AM EST 11/07/2024 8:49 AM EST Juaquin Kern MD LAB BLOOD ORDERABL ES Performing Organization Address City/[facility] [place] [address], [place] [address] * (ABNORMAL) proBNP, N-terminal (11/07/2024 8:13 AM EST) proBNP, N-terminal 3,427(H) <125 pg/mL 11/07/2024 10:25 AM EST [facility] Plasma specimen / Unknown 11/07/2024 8:13 AM EST 11/07/2024 8:49 AM EST Juaquin Kern MD LAB BLOOD ORDERABL ES [facility] [address] [place] [address], [address] [address] * (ABNORMAL) Complete Blood Count, WITHOUT Differential (routine) (11/07/2024 8:13 AM EST) White Blood Cell Count 12.4(H) 4.0 - 11.0 Thou/uL 11/07/2024 9:05 AM [facility] Platelet Count 430 150 - 450 Thou/uL 11/07/2024 9:05 AM [facility] Hemoglobin 8.9(L) 13.0 - 17.7 g/dL 11/07/2024 9:05 AM [facility] Hematocrit 28.9(L) 39.0 - 54.0 % 11/07/2024 9:05 AM [facility] Red Blood Cell Count 3.16(L) 4.50 - 6.20 Mil/uL 11/07/2024 9:05 AM [facility] MCV 92 80 - 100 fL 11/07/2024 9:05 AM [facility] MCH 28.2 27.0 - 31.0 pg 11/07/2024 9:05 AM [facility] MCHC 30.8 30.0 - 36.0 g/dL 11/07/2024 9:05 AM [facility] RDW 16.7(H) 11.5 - 14.5 % 11/07/2024 9:05 AM [facility] MPV 9.6 7.5 - 12.5 fL 11/07/2024 9:05 AM [facility] nRBC 0.2(H) 0.0 - 0.1 /100 WBC 11/07/2024 9:05 AM [facility] nRBC, Absolute 0.03(H) 0.00 - 0.02 Thou/uL 11/07/2024 9:05 AM [facility] Blood Blood specimen / Unknown 11/07/2024 8:13 AM EST 11/07/2024 8:49 AM EST Juaquin Kern MD LAB [place] [address], [place] [address] * MAGNESIUM (11/07/2024 8:13 AM EST) Magnesium 2.3 1.6 - 2.7 mg/dL 11/07/2024 9:26 AM [facility] Blood (Plasma/Serum) 11/07/2024 8:13 AM EST 11/07/2024 8:49 AM EST Juaquin Kern MD LAB BLOOD ORDERABL ES Performing Organization Address [facility]/ZIP [place] [address], [place] [address] * PHOSPHORUS (11/07/2024 8:13 AM EST) Phosphorus 4.3 2.7 - 4.5 mg/dL 11/07/2024 9:26 AM [facility] Blood (Plasma/Serum) 11/07/2024 8:13 AM EST 11/07/2024 8:49 AM EST Juaquin Kern MD LAB BLOOD ORDERABL ES Performing Organization Address City/[facility]/ZIP [place] [address], [place] [address] * (ABNORMAL) Comprehensive Metabolic Panel (11/07/2024 8:13 AM EST) Glucose 188(H) 65 - 99 mg/dL 11/07/2024 9:26 AM [facility] Comment:Fasting: <100 mg/dL, Non-Fasting: <200 mg/dL (ADA 2005) Blood Urea Nitrogen (BUN) 47(H) 8 - 21 mg/dL 11/07/2024 9:26 AM [facility] Creatinine 1.5(H) 0.5 - 1.3 mg/dL 11/07/2024 9:26 AM [facility] eGFR 52(L) >59 11/07/2024 9:26 AM [facility] Comment:CKD-EPI (2020) in mL /min/1.73 sq meters. Sodium 129(L) 136 - 145 mmol/L 11/07/2024 9:26 AM [facility] Potassium 3.9 3.4 - 5.3 mmol/L 11/07/2024 9:26 AM [facility] Chloride 94(L) 98 - 107 mmol/L 11/07/2024 9:26 AM [facility] CO2 22 22 - 33 mmol/L 11/07/2024 9:26 AM [facility] Calcium 8.3(L) 8.7 - 10.5 mg/dL 11/07/2024 9:26 AM [facility] Alkaline Phosphatase 220(H) 45 - 128 U/L 11/07/2024 9:26 [facility] Aspartate Aminotrans (AST) 28 10 - 55 U/L 11/07/2024 9:26 AM [facility] Alanine Aminotrans (ALT) 29 10 - 55 U/L 11/07/2024 9:26 [facility] Bilirubin, Total 0.2 0.2 - 1.0 mg/dL 11/07/2024 9:26 AM [facility] Protein, Total 6.1(L) 6.3 - 8.3 g/dL 11/07/2024 9:26 [facility] Albumin 2.6(L) 3.4 - 4.8 g/dL 11/07/2024 9:26 [facility] BUN/Creatinine Ratio 31(H) 10.0 - 25.0 Ratio 11/07/2024 9:26 [facility] Globulin 3.5 1.5 - 3.9 g/dL 11/07/2024 9:26 AM [facility] Albumin/Globulin Ratio 0.7(L) 1.0 - 3.0 Ratio 11/07/2024 9:26 [facility] Anion Gap 13 7 - 17 11/07/2024 9:26 AM [facility] Blood (Plasma/Serum) 11/07/2024 8:13 AM EST 11/07/2024 8:49 AM EST Juaquin Kern MD LAB BLOOD ORDERABL ES Performing Organization Address [facility] Co de Phone Number [address] [address], [address] [address] * (ABNORMAL) POCT Glucose, Fingerstick (11/07/2024 7:33 AM EST) POC Glucose 191(H) 65 - 99 mg/dL 11/07/2024 7:36 AM EST Blood specimen / Unknown 11/07/2024 7:33 AM EST 11/07/2024 7:36 AM EST Dallas Camejo MD POINT OF CARE TEST O RDERABLES Performing Organization Address [facility] Co de Phone Number [facility] LAB See Below * (ABNORMAL) POCT Glucose, Fingerstick (11/07/2024 2:07 AM EST) POC Glucose 231(H) 65 - 99 mg/dL 11/07/2024 2:08 AM EST Blood specimen / Unknown 11/07/2024 2:07 AM EST 11/07/2024 2:08 AM EST Dallas Camejo MD POINT OF CARE TEST O RDERABLES Performing Organization Address [facility] Co de Phone Number [facility] LAB See Below * (ABNORMAL) POCT Glucose, Fingerstick (11/06/2024 9:23 PM EST) POC Glucose 277(H) 65 - 99 mg/dL 11/06/2024 9:24 PM EST Blood specimen / Unknown 11/06/2024 9:23 PM EST 11/06/2024 9:24 PM EST Dallas Camejo MD POINT OF CARE TEST O RDERABLES Performing Organization Address [facility]/ZIP Co de Phone Number [facility] LAB See Below * (ABNORMAL) POCT Glucose, Fingerstick (11/06/2024 5:24 PM EST) POC Glucose 193(H) 65 - 99 mg/dL 11/06/2024 5:29 PM EST Blood specimen / Unknown 11/06/2024 5:24 PM EST 11/06/2024 5:29 PM EST Dallas Camejo MD POINT OF CARE TEST O RDERALUCILLE Performing Organization Address [facility] LAB See Below * (ABNORMAL) POCT Glucose, Fingerstick (11/06/2024 2:45 PM EST) POC Glucose 217(H) 65 - 99 mg/dL 11/06/2024 2:46 PM EST Blood specimen / Unknown 11/06/2024 2:45 PM EST 11/06/2024 2:46 PM EST Dallas Camejo MD POINT OF CARE TEST O RDERALUCILLE Performing Organization Address [facility] LAB See Below * (ABNORMAL) POCT Glucose, Fingerstick (11/06/2024 12:10 PM EST) POC Glucose 229(H) 65 - 99 mg/dL 11/06/2024 2:24 PM EST Blood specimen / Unknown 11/06/2024 12:10 PM EST 11/06/2024 2:24 PM EST Dallas Camejo MD POINT OF CARE TEST O RDERALUCILLE Performing Organization Address [facility] LAB See Below * (ABNORMAL) POCT Glucose, Fingerstick (11/06/2024 7:51 AM EST) POC Glucose 210(H) 65 - 99 mg/dL 11/06/2024 8:43 AM EST Blood specimen / Unknown 11/06/2024 7:51 AM EST 11/06/2024 8:43 AM EST Dallas Camejo MD POINT OF CARE TEST O RDERALUCILLE Performing Organization Address [facility] LAB See Below * (ABNORMAL) Complete Blood Count WITH Differential - Early AM (11/06/2024 4:58 AM [facility] Signature White Blood Cell Count 11.9(H) 4.0 - 11.0 Thou/uL 11/06/2024 5:26 AM [facility] Platelet Count 346 150 - 450 Thou/uL 11/06/2024 5:26 AM [facility] Hemoglobin 8.7(L) 13.0 - 17.7 g/dL 11/06/2024 5:26 AM [facility] Hematocrit 27.9(L) 39.0 - 54.0 % 11/06/2024 5:26 AM [facility] Red Blood Cell Count 3.05(L) 4.50 - 6.20 Mil/uL 11/06/2024 5:26 AM [facility] MCV 92 80 - 100 fL 11/06/2024 5:26 AM [facility] MCH 28.5 27.0 - 31.0 pg 11/06/2024 5:26 AM [facility] MCHC 31.2 30.0 - 36.0 g/dL 11/06/2024 5:26 AM [facility] RDW 16.4(H) 11.5 - 14.5 % 11/06/2024 5:26 AM [facility] MPV 9.5 7.5 - 12.5 fL 11/06/2024 5:26 AM [facility] Neutrophils Auto 88.8 % 11/06/19 5:26 AM [facility] Immature Granulocytes 1.1 % 11/06/2024 5:26 AM [facility] Lymphocytes Auto 3.4 % 11/06/19 5:26 AM [facility] Monocytes Auto 6.6 % 11/06/2024 5:26 AM [facility] Eosinophils Auto 0.0 % 11/06/19 5:26 AM [facility] Basophils Auto 0.1 % 11/06/2024 5:26 AM [facility] Abs Neutrophils Auto 10.57(H) 2.00 - 7.50 Thou/uL 11/06/2024 5:26 AM [facility] Abs Immature Granulocytes 0.13(H) 0.00 - 0.10 Thou/uL 11/06/2024 5:26 AM [facility] Abs Lymphocytes Auto 0.41(L) 1.50 - 4.50 Thou/uL 11/06/2024 5:26 AM [facility] Abs Monocytes Auto 0.79 0.20 - 1.50 Thou/uL 11/06/2024 5:26 AM [facility] Abs Eosinophils Auto 0.00 0.00 - 0.70 Thou/uL 11/06/2024 5:26 AM [facility] Abs Basophils Auto 0.01 0.00 - 0.20 Thou/uL 11/06/2024 5:26 AM [facility] Blood Blood specimen / Unknown 11/06/2024 4:58 AM EST 11/06/2024 5:15 AM EST Renea PATTON LAB BLOOD ORDERABLES Performing Organization Address [facility] [place] [address], [place] [address] * (ABNORMAL) PHOSPHORUS (11/06/2024 4:58 AM EST) Phosphorus 5.1(H) 2.7 - 4.5 mg/dL 11/06/2024 5:46 AM [facility] Blood (Plasma/Serum) 11/06/2024 4:58 AM EST 11/06/2024 5:15 AM EST Renea PATTON LAB BLOOD ORDERABLES Performing Organization Address City/[facility]/ZIP [place] [address], [place] [address] * MAGNESIUM (11/06/2024 4:58 AM EST) Magnesium 2.5 1.6 - 2.7 mg/dL 11/06/2024 5:46 AM [facility] Blood (Plasma/Serum) 11/06/2024 4:58 AM EST 11/06/2024 5:15 AM EST Renea PATTON LAB BLOOD ORDERABLES [address] [address], [facility] [address] [place] [address] * (ABNORMAL) Comprehensive Metabolic Panel (11/06/2024 4:58 AM EST) Glucose 194(H) 65 - 99 mg/dL 11/06/2024 5:46 AM [facility] Comment:Fasting: <100 mg/dL, Non-Fasting: <200 mg/dL (ADA 2004) Blood Urea Nitrogen (BUN) 48(H) 8 - 21 mg/dL 11/06/2024 5:46 AM [facility] Creatinine 1.7(H) 0.5 - 1.3 mg/dL 11/06/2024 5:46 AM [facility] eGFR 45(L) >59 11/06/2024 5:46 AM [facility] Comment:CKD-EPI (2020) in mL /min/1.73 sq meters. Sodium 131(L) 136 - 145 mmol/L 11/06/2024 5:46 AM [facility] Potassium 3.8 3.4 - 5.3 mmol/L 11/06/2024 5:46 AM [facility] Chloride 99 98 - 107 mmol/L 11/06/2024 5:46 AM [facility] CO2 20(L) 22 - 33 mmol/L 11/06/2024 5:46 AM [facility] Calcium 7.8(L) 8.7 - 10.5 mg/dL 11/06/2024 5:46 AM [facility] Alkaline Phosphatase 270(H) 45 - 128 U/L 11/06/2024 5:46 AM [facility] Aspartate Aminotrans (AST) 50 10 - 55 U/L 11/06/2024 5:46 AM [facility] Alanine Aminotrans (ALT) 31 10 - 55 U/L 11/06/2024 5:46 AM [facility] Bilirubin, Total 0.2 0.2 - 1.0 mg/dL 11/06/2024 5:46 AM [facility] Protein, Total 5.7(L) 6.3 - 8.3 g/dL 11/06/2024 5:46 AM [facility] Albumin 2.4(L) 3.4 - 4.8 g/dL 11/06/2024 5:46 AM [facility] BUN/Creatinine Ratio 28(H) 10.0 - 25.0 Ratio 11/06/2024 5:46 AM [facility] Globulin 3.3 1.5 - 3.9 g/dL 11/06/2024 5:46 AM [facility] Albumin/Globulin Ratio 0.7(L) 1.0 - 3.0 Ratio 11/06/2024 5:46 AM [facility] Anion Gap 12 7 - 17 11/06/2024 5:46 AM [facility] Blood (Plasma/Serum) 11/06/2024 4:58 AM EST 11/06/2024 5:15 AM EST Renea PATTON LAB BLOOD ORDERABLES Performing Organization Address City/[facility]/ZIP [place] [address], [place] [address] * BLOOD CULTURE Peripheral (11/06/2024 4:58 AM EST) Culture Sterile after 5 days 11/11/2024 8:20 AM [facility] Microbiology Peripheral blood specimen / Unknown 11/06/2024 4:58 AM EST 11/06/2024 5:36 AM EST Renea PATTON LAB AMB MICRO ORDERA BLES [facility] [address] [place] [address], * BLOOD CULTURE Peripheral (11/06/2024 4:58 AM EST) Culture Sterile after 5 days 11/11/2024 8:20 AM [facility] Microbiology Peripheral blood specimen / Unknown 11/06/2024 4:58 AM EST 11/06/2024 5:36 AM EST Renea Breen PA LAB AMB MICRO ORDERA BLES [facility] [address] * (ABNORMAL) POCT Glucose, Fingerstick (11/06/2024 1:17 AM EST) POC Glucose 229(H) 65 - 99 mg/dL 11/06/2024 1:18 AM EST Blood specimen / Unknown 11/06/2024 1:17 AM EST 11/06/2024 1:18 AM EST Dallas Camejo MD POINT OF CARE TEST O JOSEPH Performing Organization Address [facility]/ZIP Co de Phone Number [facility] LAB See Below * (ABNORMAL) POCT Glucose, Fingerstick (11/05/2024 11:05 PM EST) POC Glucose 251(H) 65 - 99 mg/dL 11/05/2024 11:07 PM EST Blood specimen / Unknown 11/05/2024 11:05 PM EST 11/05/2024 11:07 PM EST Dallas Camejo MD POINT OF CARE TEST O JOSEPH [facility] LAB See Below * (ABNORMAL) POCT Glucose, Fingerstick (11/05/2024 6:10 PM EST) POC Glucose 138(H) 65 - 99 mg/dL 11/05/2024 6:10 PM EST Blood specimen / Unknown 11/05/2024 6:10 PM EST 11/05/2024 6:11 PM EST Dallas Camejo MD POINT OF CARE TEST O JOSEPH [facility] LAB See Below * (ABNORMAL) POCT Glucose, Fingerstick (11/05/2024 3:37 PM EST) POC Glucose 138(H) 65 - 99 mg/dL 11/05/2024 3:38 PM EST Blood specimen / Unknown 11/05/2024 3:37 PM EST 11/05/2024 3:38 PM EST Dallas Camejo MD POINT [facility] LAB See Below * Pathology (11/05/2024 2:11 PM EST) Report [facility] CT [id number] ?? CLIA ID [id number] [address] [place], [place] ??[address] 7 [phone] Surgical Pathology Report PATIENT NAME: BLAS GENAO REC NUMBER: [id number] (AGE): 1960 (Age: 63) SPECIMEN NUMBER: [id number] DATE OBTAINED: 11/05/2024 DIAGNOSIS LEFT LOWER EXTREMITY, BELOW KNEE AMPUTATION: ??SEVERE PERIPHERAL ARTERIOSCLEROSIS WITH CALCIFICATION, GANGRENOUS ULCER OF FOOT WITH SEVERE ACUTE OSTEOMYELITIS. NEGATIVE AMPUTATION MARGIN. kl/11/16/2024 Electronically Signed Out ? SENA SHABAZZ MD COMMENT [id number], [id number] Clinical Information and History: Acute osteomyelitis of [...] other masses or lesions are grossly identified. ??Switchboard And Control Room Operator sections are submitted in A1 - ?? [...] MD PATHOLOGY/CYTOLOGY O RDERABLES Performing Organization Address City/[facility] Co de Phone Number [facility] LAB See Below * (ABNORMAL) POCT Glucose, Fingerstick (11/05/2024 12:54 PM EST) Pathologist [facility] POC Glucose 128(H) 65 - 99 mg/dL 11/05/2024 2:08 PM EST Blood specimen / Unknown 11/05/2024 12:54 PM EST 11/05/2024 2:08 PM EST Dallas Camejo MD POINT OF CARE TEST O RDERABLES Performing Organization Address [facility] de Phone Number [facility] LAB See Below * (ABNORMAL) PROTIME-INR (11/05/2024 7:12 AM EST) Pathologist [facility] Anticoagulant Information not given 11/05/2024 7:47 AM [facility] Prothrombin Time (PT) 15.3(H) 10.0 - 13.5 seconds 11/05/2024 8:07 AM [facility] INR 1.3 11/05/2024 8:07 AM [facility] Comment:INR Therapeutic Rang es: Standard dose anticoagulant 2.0 to 3.0, High dose anticoagulant 2.5-3.5. Plasma specimen / Unknown 11/05/2024 7:12 AM EST 11/05/2024 7:46 AM EST Chris Taylor MD LAB BLOOD ORDERABLES Performing Organization Address [facility] [place] [address], [place] [address] * (ABNORMAL) COMPLETE BLOOD COUNT, WITHOUT DIFFERENTIAL (11/05/2024 7:12 AM EST) [facility] White Blood Cell Count 15.9(H) 4.0 - 11.0 Thou/uL 11/05/2024 7:59 AM [facility] Platelet Count 353 150 - 450 Thou/uL 11/05/2024 7:59 AM [facility] Hemoglobin 9.1(L) 13.0 - 17.7 g/dL 11/05/2024 7:59 AM [facility] Hematocrit 28.3(L) 39.0 - 54.0 % 11/05/2024 7:59 AM [facility] Red Blood Cell Count 3.12(L) 4.50 - 6.20 Mil/uL 11/05/2024 7:59 AM [facility] MCV 91 80 - 100 fL 11/05/2024 7:59 AM [facility] MCH 29.2 27.0 - 31.0 pg 11/05/2024 7:59 AM [facility] MCHC 32.2 30.0 - 36.0 g/dL 11/05/2024 7:59 AM [facility] RDW 16.8(H) 11.5 - 14.5 % 11/05/2024 7:59 AM [facility] MPV 9.8 7.5 - 12.5 fL 11/05/2024 7:59 AM [facility] Blood specimen / Unknown 11/05/2024 7:12 AM EST 11/05/2024 7:46 AM EST Chris Taylor MD LAB [place] [address], [place] [address] * (ABNORMAL) BASIC METABOLIC PANEL (11/05/2024 7:12 AM EST) Glucose 146(H) 65 - 99 mg/dL 11/05/2024 8:18 AM [facility] Comment:Fasting: <100 mg/dL, Non-Fasting: <200 mg/dL (ADA 2004) Blood Urea Nitrogen (BUN) 47(H) 8 - 21 mg/dL 11/05/2024 8:18 AM [facility] Creatinine 2.0(H) 0.5 - 1.3 mg/dL 11/05/2024 8:18 AM [facility] eGFR 37(L) >59 11/05/2024 8:18 AM [facility] Comment:CKD-EPI (2020) in mL /min/1.73 sq meters. Sodium 130(L) 136 - 145 mmol/L 11/05/2024 8:18 AM [facility] Potassium 3.4 3.4 - 5.3 mmol/L 11/05/2024 8:18 AM [facility] Chloride 96(L) 98 - 107 mmol/L 11/05/2024 8:18 AM [facility] CO2 19(L) 22 - 33 mmol/L 11/05/2024 8:18 AM [facility] Anion Gap 15 7 - 17 11/05/2024 8:18 AM [facility] Calcium 7.9(L) 8.7 - 10.5 mg/dL 11/05/2024 8:18 AM [facility] BUN/Creatinine Ratio 24 10.0 - 25.0 Ratio 11/05/2024 8:18 AM [facility] Plasma/Serum 11/05/2024 7:12 AM EST 11/05/2024 7:46 AM EST Chris Taylor MD [place] [address], [place] [address] * (ABNORMAL) Hepatic Function Panel (AM) (11/05/2024 7:12 AM EST) Alkaline Phosphatase 153(H) 45 - 128 U/L 11/05/2024 8:18 AM [facility] Aspartate Aminotrans (AST) 26 10 - 55 U/L 11/05/2024 8:18 AM [facility] Alanine Aminotrans (ALT) 23 10 - 55 U/L 11/05/2024 8:18 AM [facility] Bilirubin, Total 0.3 0.2 - 1.0 mg/dL 11/05/2024 8:18 AM [facility] Protein, Total 5.9(L) 6.3 - 8.3 g/dL 11/05/2024 8:18 AM [facility] Albumin 2.5(L) 3.4 - 4.8 g/dL 11/05/2024 8:18 AM [facility] Bilirubin, Direct 0.2 0 - 0.2 mg/dL 11/05/2024 8:18 AM EST [facility] Globulin 3.4 1.5 - 3.9 g/dL 11/05/2024 8:18 AM [facility] Albumin/Globulin Ratio 0.7(L) 1.0 - 3.0 Ratio 11/05/2024 8:18 AM EST [facility] Blood (Plasma/Serum) 11/05/2024 7:12 AM EST 11/05/2024 7:46 AM EST Chris Taylor MD LAB BLOOD ORDERABLES Performing Organization Address City/[facility]/ZIP [place] [address], [place] [address] * Creatine Kinase, Reflex to [facility] (11/05/2024 7:12 AM EST) Creatine Kinase (CK) 49 24 - 204 U/L 11/05/2024 8:18 AM EST [facility] Blood (Plasma/Serum) 11/05/2024 7:12 AM EST 11/05/2024 7:46 AM EST Chris Taylor MD LAB BLOOD ORDERABLES Performing Organization Address City/[facility]/[place]IP [place] [address], [place] [address] * (ABNORMAL) POCT Glucose, Fingerstick (11/05/2024 6:26 [...] ruled out. Interpreted by: ??David Vogt DO Police Superintendent I personally reviewed the images and the [...] ruled out. Interpreted by: David Vogt DO Police Superintendent I personally reviewed the images and the [...] TEST O JOSEPH Performing Organization Address [facility] See Below * (ABNORMAL) POCT Glucose, Fingerstick (11/04/2024 5:00 PM EST) POC Glucose 172(H) 65 - 99 mg/dL 11/04/2024 5:22 PM EST Blood specimen / Unknown 11/04/2024 5:00 PM EST 11/04/2024 5:22 PM EST Dallas Camejo MD POINT OF CARE TEST O JOSEPH Performing Organization Address [facility] LAB See Below * (ABNORMAL) POCT Glucose, Fingerstick (11/04/2024 12:43 PM EST) POC Glucose 167(H) 65 - 99 mg/dL 11/04/2024 12:48 PM EST Blood specimen / Unknown 11/04/2024 12:43 PM EST 11/04/2024 12:48 PM EST Dallas Camejo MD POINT OF CARE TEST O JOSEPH Performing Organization Address [facility] Number [facility] See Below * (ABNORMAL) Complete Blood Count WITHOUT Differential - Early AM (11/04/2024 11:19 AM EST) White Blood Cell Count 13.4(H) 4.0 - 11.0 Thou/uL 11/04/2024 11:38 AM [facility] Platelet Count 326 150 - 450 Thou/uL 11/04/2024 11:38 AM [facility] Hemoglobin 8.7(L) 13.0 - 17.7 g/dL 11/04/2024 11:38 AM [facility] Hematocrit 28.0(L) 39.0 - 54.0 % 11/04/2024 11:38 AM [facility] Red Blood Cell Count 3.05(L) 4.50 - 6.20 Mil/uL 11/04/2024 11:38 AM [facility] MCV 92 80 - 100 fL 11/04/2024 11:38 AM [facility] MCH 28.5 27.0 - 31.0 pg 11/04/2024 11:38 AM [facility] MCHC 31.1 30.0 - 36.0 g/dL 11/04/2024 11:38 AM [facility] RDW 16.6(H) 11.5 - 14.5 % 11/04/2024 11:38 AM [facility] MPV 9.4 7.5 - 12.5 fL 11/04/2024 11:38 AM [facility] Blood Blood specimen / Unknown 11/04/2024 11:19 AM EST 11/04/2024 11:28 AM EST Renea PATTON LAB [place] [address], [place] [address] * (ABNORMAL) BLOOD CULTURE Peripheral (11/04/2024 11:03 AM EST) Gram stain suggestive of Gram positive cocci in clusters 11/07/2024 10:29 AM [facility] Culture Methicillin Resistant Staph aureus (MRSA) Aerobic bottle positive. Susceptibility of the same isolate identification, from the same apparent body site is only performed once per 5 calendar days. ?See susceptibilities reported on specimen collected 11/02/2024 (A) 11/08/2024 12:21 PM [facility] Microbiology Peripheral blood specimen / Unknown 11/04/2024 11:03 AM EST 11/04/2024 12:35 PM EST Chris Taylor MD LAB AMB MICRO ORDERA BLES Performing Organization Address [facility] Co de Phone Number [facility] [address] [place] [address], * (ABNORMAL) BLOOD CULTURE Peripheral (11/04/2024 11:03 AM EST) Gram stain suggestive of Gram positive cocci in clusters 11/07/2024 1:43 PM [facility] Culture Methicillin Resistant Staph aureus (MRSA) Aerobic bottle positive. Susceptibility of the same isolate identification, from the same apparent body site is only performed once per 5 calendar days. ?See susceptibilities reported on specimen collected 11/02/2024 (A) 11/08/2024 12:17 PM [facility] Microbiology Peripheral blood specimen / Unknown 11/04/2024 11:03 AM EST 11/04/2024 12:35 PM EST Chris Taylor MD LAB AMB MICRO ORDERA BLES Performing Organization Address [facility] Co de Phone Number [facility] [address] [place] [address], * (ABNORMAL) Basic Metabolic Panel (Routine) (11/04/2024 10:50 AM EST) Glucose 184(H) 65 - 99 mg/dL 11/04/2024 11:53 AM [facility] Comment:Fasting: <100 mg/dL, Non-Fasting: <200 mg/dL (ADA 2004) Blood Urea Nitrogen (BUN) 48(H) 8 - 21 mg/dL 11/04/2024 11:53 AM [facility] Creatinine 2.0(H) 0.5 - 1.3 mg/dL 11/04/2024 11:53 AM [facility] eGFR 37(L) >59 11/04/2024 11:53 AM [facility] Comment:CKD-EPI (2020) in mL /min/1.73 sq meters. Sodium 130(L) 136 - 145 mmol/L 11/04/2024 11:53 AM [facility] Potassium 3.7 3.4 - 5.3 mmol/L 11/04/2024 11:53 AM [facility] Chloride 95(L) 98 - 107 mmol/L 11/04/2024 11:53 AM [facility] CO2 21(L) 22 - 33 mmol/L 11/04/2024 11:53 AM [facility] Anion Gap 14 7 - 17 11/04/2024 11:53 AM [facility] Calcium 7.7(L) 8.7 - 10.5 mg/dL 11/04/2024 11:53 AM [facility] BUN/Creatinine Ratio 24 10.0 - 25.0 Ratio 11/04/2024 11:53 AM [facility] Blood (Plasma/Serum) 11/04/2024 10:50 AM EST 11/04/2024 11:28 AM EST Juaquin Kern MD LAB [place] [address], [place] [address] * ECHOCARDIOGRAM COMPREHENSIVE (11/04/2024 9:05 AM EST) [...] ?Compared to previous outside study report from [facility] on 08/05/2024, Mitral and tricuspid regurgitation [...] Compared to previous outside study report from [facility] on 08/05/2024, Mitral and tricuspid regurgitation [...] PRODUCT O RDERABLES Performing Organization Address [facility] Number [facility] See Below * (ABNORMAL) POCT Glucose, Fingerstick (11/03/2024 9:25 PM EST) POC Glucose 229(H) 65 - 99 mg/dL 11/03/2024 9:26 PM EST Blood specimen / Unknown 11/03/2024 9:25 PM EST 11/03/2024 9:26 PM EST Dallas Camejo MD POINT OF CARE TEST O JOSEPH Performing Organization Address [facility] Number [facility] See Below * (ABNORMAL) POCT Glucose, Fingerstick (11/03/2024 5:50 PM EST) POC Glucose 158(H) 65 - 99 mg/dL 11/03/2024 6:19 PM EST Blood specimen / Unknown 11/03/2024 5:50 PM EST 11/03/2024 6:19 PM EST Dallas Camejo MD POINT OF CARE TEST O RDERALUCILLE Performing Organization Address [facility] Number [facility] See Below * (ABNORMAL) POCT Glucose, Fingerstick (11/03/2024 11:43 AM EST) POC Glucose 153(H) 65 - 99 mg/dL 11/03/2024 11:48 AM EST Blood specimen / Unknown 11/03/2024 11:43 AM EST 11/03/2024 11:48 AM EST [facility] * Creatine Kinase (CK) (11/03/2024 10:52 AM EST) Creatine Kinase (CK) 61 24 - 204 U/L 11/03/2024 11:37 AM EST [facility] Blood (Plasma/Serum) 11/03/2024 10:52 AM EST 11/03/2024 11:10 AM EST Ena Mtz MD LAB BLOOD ORDERA BLES Performing Organization Address [facility] [place] [address], [place] [address] * (ABNORMAL) POCT Glucose, Fingerstick (11/03/2024 7:56 AM EST) Pathologist [facility] POC Glucose 165(H) 65 - 99 mg/dL 11/03/2024 8:04 AM EST Blood specimen / Unknown 11/03/2024 7:56 AM EST 11/03/2024 8:04 AM EST Dallas Camejo MD POINT OF CARE TEST O JOSEPH Performing Organization Address [facility] Co de Phone Number [facility] See Below * MRSA PCR Screen, Qualitative (11/03/2024 3:24 AM EST) MRSA Result Not Detected Not Detected 7:00 AM EST [facility] Comment:Performed by the Xpe rt MRSA NxG Assay X-Specimen 12 Specimen from nose / Unknown 11/03/2024 3:24 AM EST 11/03/2024 5:23 AM EST Kenzie PATTON MICROBIOLOGY - GENE RAL ORDERABLES Performing Organization Address [facility] [place] [address], [place] [address] * ECG 12 lead (STAT) (11/02/2024 9:34 PM EST) Ventricular rate 70 BPM EKG [facility] Atrial rate 70 BPM EKG [facility] P-R interval 272 ms EKG [facility] QRS duration 202 ms EKG [facility] Q-T interval 510 ms EKG [facility] QTC calculation (Bazett) 551 ms EKG [facility] P axis 81 degrees EKG [facility] R axis 29 degrees EKG [facility] T axis 132 degrees EKG [facility] 11/02/2024 9:34 PM EST Narrative EKG [facility] - 11/03/2024 4:30 PM EST Atrial-sensed [...] Kenzie PATTON ECG ORDERABLES [facility] * (ABNORMAL) POCT Glucose, [...] Infectious Diseases for management. 11/03/2024 6:06 PM [facility] BC ID PCR Result Summary Enterococcus faecium Vancomycin resistance gene detected by molecular method. Please refer to detailed susceptibility results when available and suggest consultation with Infectious Diseases for management. 11/03/2024 6:06 PM [facility] BC ID PCR Result Summary Methicillin Resistant Staph aureus (MRSA) 11/03/2024 6:06 PM [facility] Methicillin resistance gene mecA/C Detected(A) 11/03/2024 6:06 PM [facility] Vancomycin resistance genes Eugenia/B Detected(A) 11/03/2024 6:06 PM [facility] Enterococcus faecalis Detected(A) 11/03/2024 6:06 PM [facility] Enterococcus faecium Detected(A) 11/03/2024 6:06 PM [facility] Listeria monocytogenes Not Detected 11/03/2024 6:06 PM [facility] Staphylococcus Detected(A) 6:06 PM [facility] Staphylococcus aureus Detected(A) 11/03/2024 6:06 PM [facility] Staphylococcus epidermidis Not Detected 11/03/2024 6:06 PM [facility] Staphylococcus lugdunensis Not Detected 11/03/2024 6:06 PM [facility] Streptococcus Not Detected 6:06 PM [facility] Streptococcus agalactiae Not Detected 11/03/2024 6:06 PM [facility] Streptococcus pneumoniae Not Detected 11/03/2024 6:06 PM [facility] Streptococcus pyogenes Not Detected 11/03/2024 6:06 PM [facility] Acinetobacter calcoaceticus-bauma nnii complex Not Detected 11/03/2024 6:06 PM [facility] Bacteroides fragilis Not Detected 11/03/2024 6:06 PM [facility] Enterobacterales Not Detected 2024 6:06 PM [facility] Enterobacter cloacae complex Not Detected 11/03/2024 6:06 PM [facility] Escherichia coli Not Detected 2024 6:06 PM [facility] Klebsiella aerogenes Not Detected 11/03/2024 6:06 PM [facility] Klebsiella oxytoca Not Detected 01/2025 6:06 PM [facility] Klebsiella pneumoniae group Not Detected 11/03/2024 6:06 PM [facility] Proteus Not Detected 11/03/2024 6:06 PM [facility] Salmonella Not Detected 11/03/2024 6:06 PM [facility] Serratia marcescens Not Detected 01/2025 6:06 PM [facility] Haemophilus influenza Not Detected 11/03/2024 6:06 PM [facility] Neisseria meningitidis Not Detected 11/03/2024 6:06 PM [facility] Pseudomonas aeruginosa Not Detected 11/03/2024 6:06 PM [facility] Stenotrophomonas maltophilia Not Detected 11/03/2024 6:06 PM [facility] Fernanda albicans Not Detected 2024 6:06 PM [facility] Fernanda auris Not Detected 6:06 PM [facility] Fernanda glabrata Not Detected 2024 6:06 PM [facility] Fernanda krusei Not Detected 11/03/19 6:06 PM [facility] Fernanda parapsilosis Not Detected 11/03/2024 6:06 PM [facility] Cryptococcus neoformans/gattii Not Detected 11/03/2024 6:06 PM [facility] PCR ID Comment Antimicrobial resistance can occur via multiple mechanisms. A Not Detected result for antimicrobial resistance gene(s) does not indicate antimicrobial susceptibility. Subculturing is required for species identification and susceptibility testing of isolates. 11/03/2024 6:06 PM [facility] 11/02/2024 8:00 PM EST 11/02/2024 8:29 PM EST Kenzie PATTON MICROBIOLOGY - GENE RAL ORDERABLES [facility] [address] [place] [address], * (ABNORMAL) Erythrocyte Sedimentation Rate (ESR) (11/02/2024 8:00 PM EST) Erythrocyte Sediment Rate (ESR) 79(H) <20 MM/HR 11/02/2024 8:51 PM EST [facility] Blood specimen / Unknown 11/02/2024 8:00 PM EST 11/02/2024 8:22 PM EST Kenzie PATTON LAB [place] [address], [place] [address] * (ABNORMAL) C-REACTIVE PROTEIN (11/02/2024 8:00 PM EST) Pathologist [facility] C-Reactive Protein 29.62(H) 0 - 0.49 mg/dL 11/03/2024 12:04 AM [facility] Plasma/Serum 11/02/2024 8:00 PM EST 11/02/2024 8:22 PM EST Kenzie PATTON LAB BLOOD ORDERABLE S Performing Organization Address City/[facility]/ZIP [place] [address], [place] [address] * (ABNORMAL) BLOOD CULTURE Peripheral (11/02/2024 8:00 PM EST) Gram stain suggestive of Gram positive cocci 11/03/2024 3:55 PM [facility] Culture Methicillin Resistant Staph aureus (MRSA) Aerobic and Anaerobic bottle positive. Complete identification and susceptibility of the same isolate, if appropriate, performed on only one blood culture collection per day. (A) 11/06/2024 12:15 PM EST [facility] Culture Enterococcus faecalis Aerobic and Anaerobic bottle positive. Complete identification and susceptibility of the same isolate, if appropriate, performed on only one blood culture collection per day. (A) 11/06/2024 12:15 PM EST [facility] Microbiology Peripheral blood specimen / Unknown 11/02/2024 8:00 PM EST 11/02/2024 8:28 PM EST Sagrario Taylor PATTON LAB AMB MICRO ORDER JOSE [facility] [address] [place] [address], * (ABNORMAL) BLOOD CULTURE Peripheral (11/02/2024 8:00 PM EST) Gram stain suggestive of Gram positive cocci 11/03/2024 3:50 PM EST [facility] Culture Methicillin Resistant Staph aureus (MRSA) Aerobic and Anaerobic bottle positive. (A) 11/05/2024 1:52 PM EST [facility] Culture Enterococcus faecalis Aerobic and Anaerobic bottle positive. (A) 11/05/2024 1:52 PM EST [facility] Culture Enterococcus faecium Anaerobic bottle positive. (A) 11/05/2024 1:52 PM EST [facility] Microbiology Peripheral blood specimen [...] Kenzie PATTON LAB AMB MICRO ORDER JOSE [facility] [address] [place] [address], * Vitamin D, 25-Hydroxy (11/02/2024 8:00 PM EST) Vitamin D, 25-Hydroxy 50 30 - 100 ng/mL 11/02/2024 9:10 PM EST [facility] Blood (Plasma/Serum) 11/02/2024 8:00 PM EST 11/02/2024 8:23 PM EST Kenzie Mcknight Taylor PATTON LAB [place] [address], [place] [address] * (ABNORMAL) TRANSFERRIN (11/02/2024 8:00 PM EST) Transferrin 178(L) 200 - 360 mg/dL 11/03/2024 12:04 AM [facility] Blood (Plasma/Serum) 11/02/2024 8:00 PM EST 11/02/2024 8:22 PM EST Kenzie Mcknight Taylor PATTON LAB [place] [address], [place] [address] * (ABNORMAL) Prealbumin (11/02/2024 8:00 PM EST) Prealbumin 7(L) 20 - 40 mg/dL 11/03/2024 12:04 AM [facility] Blood (Plasma/Serum) 11/02/2024 8:00 PM EST 11/02/2024 8:22 PM EST Kenzie Mcknight Taylor PATTON LAB [place] [address], [place] [address] * (ABNORMAL) Albumin (11/02/2024 8:00 PM EST) Albumin 3.2(L) 3.4 - 4.8 g/dL 11/03/2024 12:04 AM [facility] Blood (Plasma/Serum) 11/02/2024 8:00 PM EST 11/02/2024 8:22 PM EST Kenzie Chandlergisselle PATTON LAB BLOOD ORDERABLE S Performing Organization Address [facility] [place] [address], [place] [address] * (ABNORMAL) Protime-INR (Routine) (11/02/2024 8:00 PM EST) [facility] Anticoagulant APIXABAN (ELIQUIS) 11/02/2024 6:26 PM EST Prothrombin Time (PT) 14.7(H) 10.0 - 13.5 seconds 11/02/2024 9:05 PM [facility] INR 1.3 11/02/2024 9:05 PM [facility] Comment:INR Therapeutic Rang es: Standard dose anticoagulant 2.0 to 3.0, High dose anticoagulant 2.5-3.5. Blood Plasma specimen / Unknown 11/02/2024 8:00 PM EST 11/02/2024 8:22 PM EST Kenzie Mcknight Taylor PATTON LAB BLOOD ORDERABLE S Performing Organization Address City/[facility] [place] [address], [place] [address] * (ABNORMAL) Basic Metabolic Panel (STAT) (11/02/2024 8:00 PM EST) [facility] Glucose 171(H) 65 - 99 mg/dL 11/03/2024 12:04 AM [facility] Comment:Fasting: <100 mg/dL, Non-Fasting: <200 mg/dL (ADA 2005) Blood Urea Nitrogen (BUN) 41(H) 8 - 21 mg/dL 11/03/2024 12:04 AM [facility] Creatinine 2.0(H) 0.5 - 1.3 mg/dL 11/03/2024 12:04 AM [facility] eGFR 37(L) >59 11/03/2024 12:04 AM [facility] Comment:CKD-EPI (2020) in mL /min/1.73 sq meters. Sodium 130(L) 136 - 145 mmol/L 11/03/2024 12:04 AM [facility] Potassium 4.0 3.4 - 5.3 mmol/L 11/03/2024 12:04 AM [facility] Chloride 92(L) 98 - 107 mmol/L 11/03/2024 12:04 AM [facility] CO2 19(L) 22 - 33 mmol/L 11/03/2024 12:04 AM [facility] Anion Gap 19(H) 7 - 17 11/03/2024 12:04 AM [facility] Calcium 8.5(L) 8.7 - 10.5 mg/dL 11/03/2024 12:04 AM [facility] BUN/Creatinine Ratio 21 10.0 - 25.0 Ratio 11/03/2024 12:04 AM [facility] Blood (Plasma/Serum) 11/02/2024 8:00 PM EST 11/02/2024 8:22 PM EST Kenzie PATTNO LAB BLOOD ORDERABLE S Performing Organization Address City/State/[facility] [place] [address], [place] [address] * (ABNORMAL) Complete Blood Count WITH Differential - STAT (11/02/2024 8:00 PM EST) White Blood Cell Count 14.3(H) 4.0 - 11.0 Thou/uL 11/02/2024 8:32 PM [facility] Platelet Count 395 150 - 450 Thou/uL 11/02/2024 8:32 PM [facility] Hemoglobin 9.3(L) 13.0 - 17.7 g/dL 11/02/2024 8:32 PM [facility] Hematocrit 29.3(L) 39.0 - 54.0 % 11/02/2024 8:32 PM [facility] Red Blood Cell Count 3.20(L) 4.50 - 6.20 Mil/uL 11/02/2024 8:32 PM [facility] MCV 92 80 - 100 fL 11/02/2024 8:32 PM [facility] MCH 29.1 27.0 - 31.0 pg 11/02/2024 8:32 PM [facility] MCHC 31.7 30.0 - 36.0 g/dL 11/02/2024 8:32 PM [facility] RDW 16.1(H) 11.5 - 14.5 % 11/02/2024 8:32 PM [facility] MPV 9.5 7.5 - 12.5 fL 11/02/2024 8:32 PM [facility] Neutrophils Auto 81.9 % 11/02/19 8:32 PM [facility] Immature Granulocytes 0.6 % 11/02/2024 8:32 PM [facility] Lymphocytes Auto 4.8 % 11/02/19 8:32 PM [facility] Monocytes Auto 12.2 % 11/02/2024 8:32 PM [facility] Eosinophils Auto 0.1 % 11/02/19 8:32 PM [facility] Basophils Auto 0.4 % 11/02/2024 8:32 PM [facility] Abs Neutrophils Auto 11.67(H) 2.00 - 7.50 Thou/uL 11/02/2024 8:32 [facility] Abs Immature Granulocytes 0.08 0.00 - 0.10 Thou/uL 11/02/2024 8:32 PM [facility] Abs Lymphocytes Auto 0.69(L) 1.50 - 4.50 Thou/uL 11/02/2024 8:32 PM [facility] Abs Monocytes Auto 1.74(H) 0.20 - 1.50 Thou/uL 11/02/2024 8:32 PM [facility] Abs Eosinophils Auto 0.02 0.00 - 0.70 Thou/uL 11/02/2024 8:32 PM [facility] Abs Basophils Auto 0.05 0.00 - 0.20 Thou/uL 11/02/2024 8:32 PM [facility] Blood Blood specimen / Unknown 11/02/2024 8:00 PM EST 11/02/2024 8:22 PM EST Kenzie PATTON LAB [place] [address], [place] [address] * Type and Screen (11/02/2024 7:56 PM EST) ABO/Rh A POSITIVE 11/02/2024 10:22 PM [facility] Antibody Screen NEGATIVE 11/02/2024 10:22 PM [facility] Specimen Expiration 11/05/2024 11/02/2024 10:22 PM [facility] Unit Number [id number] 11/04/2024 6:58 AM [facility] Blood Component Type LEUKOREDUCED RED CELLS 11/04/2024 6:58 AM [facility] Unit Division 00 11/04/2024 6:58 AM [facility] Unit Status REL FROM ALLOC 9:33 PM [facility] Transfusion Status OK TO TRANSFUSE 11/04/2024 6:58 AM [facility] Crossmatch Result Electronically Compatible 11/04/2024 6:58 AM [facility] Unit Number [id number] 11/04/2024 6:58 AM [facility] Blood Component Type LEUKOREDUCED RED CELLS 11/04/2024 6:58 AM [facility] Unit Division 00 11/04/2024 6:58 AM [facility] Unit Status REL FROM ALLOC 9:33 PM [facility] Transfusion Status OK TO TRANSFUSE 11/04/2024 6:58 AM [facility] Crossmatch Result Electronically Compatible 11/04/2024 6:58 AM [facility] Blood Blood specimen / Unknown 11/02/2024 7:56 PM EST 11/02/2024 8:51 PM EST Comment:Blood Kenzie PATTON BLOOD BANK TEST ORD ERABLES HOSPITAL LAB See Below [address] [place] [address] * (ABNORMAL) POCT Glucose, Fingerstick (11/02/2024 6:48 [...] EST 10 mL lidocaine-EPINEPHrine (XYLOCAINE/EPINEPHrine ) 1 %-[id number] injection As needed, Starting on Fri11/19/24 at [...] RN) 0815 (Given - Provider: Mitesh Caldwell RN)210 (Given - Provider: Agnieszka Torrez RN) 0935 [...] RN) 0815 (Given - Provider: Mitesh Caldwell RN)210 (Given - Provider: Agnieszka Torrez RN) 0935 [...] Caldwell RN)1351 (Given - Provider: Page Montemayor RN)210 (Given - Provider: Agnieszka Torrez, JOSUE) 0935 [...] reversal, respiratory depression, Starting on Fri11/05/24 at 191, If respiratory rate is less than 8 [...] documented as of this encounter Care Teams Research Dietitian Relationship Specialty Start Date End Date Lee Fabian MD PCP - General Internal Medicine 09/02/24 Vitaliy Fields MD [address] [address] Cardiovascular Disease 09/02/24 Dallas Camejo MD [address] [place] [address] Surgery, Orthopedic 09/02/24 Rolando Lopez MD [address] [place] [address] Transplant - Ph [address] [place] [address] Physician Nephrology 09/02/24 Cesar Fair MD 85 [facility] [address] [place] [address] Surgery, Cardiac 11/08/24 Daisy Her, PT 85 [facility] [address] [place] [address] [facility] 11/18/24 documented as of this encounter
--- OUTSIDE RECORDS SUMMARY | 2024-12-10 15:21 | XMS_ITS | Encounter Summary ---
Author Organization [facility] Address [address] [place] [address] Care Team Providers Care Car Cleaner Name Role Phone Lee Fabian MD Primary Care Provider Unavail able Vitaliy Fields MD Unavailable [phone] Dallas Camejo MD Unavailable [phone] Rolando Lopez MD Unavailable Cesar Fair MD Unavailable Daisy Her PT Unavailable Reason for Referral * Rehabilitation (Routine) - Pending Review Specialty Diagnoses / Procedures Referred By Contac t Referred To Contact Diagnoses Below-knee amputation of left lower extremity, initial encounter ([facility]) Sheila Childs APRN [address] [place] [id number] Referral ID Status Reason Start Date Expiration Date Visits Requested Visits Authorized [id number] Pending Review Support Services 11/30/2024 12/01/2025 1 [...] PM EST [facility] Visit [facility] [address] [place] [address] Sheila Childs APRN 31 [facility] [place] [address] [place] [address] Below-knee amputation of left lower extremity, initial encounter ([facility]) (Primary Dx) Social History Tobacco Use Types Packs/Day Years Used Date Smoking Tobacco: Former Cigarettes 1 29.2 1 977 - 2003 Smokeless Tobacco: Never Alcohol Use Standard Drinks/Week Comments Yes 21 (1 standard drink = 0.6 oz pu re alcohol) [facility] Utilities Answer Date Recorded In the past 12 months has [facility] [employer], gas, oil, or water [employer] threatened to shut off services in your [...] any time in the past 12 m [facility], were you homeless or living in a long term (including now)? No 11/03/2024 Sex and Gender Information Value Date Recorded Sex Assigned at Male 09/03/2024 12:21 PM EST Gender Identity Male 09/03/2024 12:21 PM EST Sexual Orientation Heterosexual (straight) 09/10 7:58 AM EST documented as of this encounter Progress Notes * Sheila Childs, STACKER STRAIGHTENER - 11/30/2024 1:15 PM EST Images from the original note were not included. [address] [facility] [address] [address] Encounter Date: 11/30/2024 1. 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 [...] PM EDT [facility] Visit [facility] [address] [address] [place] Camejo MD [address] [place] [address] 12/16/2024 8:30 AM EDT Office Visit [facility] Infectious Disease [address] [place] [address] nEa Mtz MD [address] [place] [address] 12/22/2024 10:00 AM EDT Appointment [facility] Heart & Vascular [place] at [facility] - Echocardiography Laboratory [address] [place] [address] Ena Mtz MD [address] [place] [address] Scheduled Referrals Name Type Priority Associated Diagnoses Orde r Schedule Amb Referral to Therapy Services (PT or OT) Outpatient Referral Routine Below-knee amputation of left lower extremity, initial encounter (HCC) Ordered: 11/30/2024 documented as of this encounter Visit Diagnoses Diagnosis Below-knee amputation of left lower extremity, initial encounter (HCC)- Primary documented in this encounter Care Teams Car Cleaner Relationship Specialty Start Date End Date Lee Fabian MD PCP - General Internal Medicine 09/02/24 Vitaliy Fields MD [address] [address] Cardiovascular Disease 09/02/24 [place] Camejo MD [address] [place] [address] Surgery, Orthopedic 09/02/24 Rolando Lopez MD [address] Transplant - 14 [place] [address] Physician Nephrology 09/02/24 Cesar Fair MD 85 [facility] [address] [place], [place] [phone] Surgery, Cardiac 11/08/24 Daisy Her, PT 85 [facility] [address] [place] [address] [employer] TeacherNurse Wound Medicine and Rehabilitation 11/18/24 documented as of this encounter
--- OUTSIDE RECORDS SUMMARY | 2024-12-10 15:23 | XMS_ITS | Encounter Summary ---
Author Organization [facility] Address [address] [place] [address] Care Team Providers Care Automation Engineer Name Role Phone Lee Fabian MD Primary Care Provider Unavail able Vitaliy Fields MD Unavailable [phone] Dallas Camejo MD Unavailable [phone] Rolando Lopez MD Unavailable [phone] Cesar Fair MD Unavailable [phone] Encounter Details Date Type Department Care Team (Latest Contact Info) Description 11/11/2024 Travel Social History Tobacco Use Types Packs/Day Years Used Date Smoking Tobacco: Former Cigarettes 1 29.2 1 977 - 2004 Smokeless Tobacco: Never Alcohol Use Standard Drinks/Week Comments Yes 21 (1 standard drink = 0.6 oz pu re alcohol) [facility] Utilities Answer Date Recorded In the past 12 months has [employer], gas, oil, or water [employer] threatened to shut off services in your [...] were you homeless or living in a mcc (including now)? No 11/03/2024 Sex and Gender Information Value Date Recorded Sex Assigned at Male 09/03/2024 12:21 PM EST Gender Identity Male 09/03/2024 12:21 PM EST Sexual Orientation Heterosexual (straight) 09/10 7:58 AM EST documented as of this encounter Plan of Treatment Upcoming Encounters Date Type Department Care Team (Late st Contact Info) Description 12/14/2024 2:00 PM EDT [facility] Visit [facility] [address] [place] [address] [place] Camejo MD [address] [place] [address] 12/16/2024 8:30 AM EDT Office Visit [facility] Infectious Disease [address] [place] [phone] Ena Mtz MD [address] [place] [address] 12/22/2024 10:00 AM EDT Appointment 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/10/24 09/16/2024 09/16/2024 11/24/2024 3:08 P M EST documented as of this encounter Care Teams Automation Engineer Relationship Specialty Start Date End Date Lee Fabian MD PCP - General Internal Medicine 09/02/24 Vitaliy Fields MD [address] [address] Cardiovascular Disease 09/02/24 [place] Camejo MD 7 [place] [address] Surgery, Orthopedic 09/02/24 Rolando Lopez MD [address] Transplant - Ph 14 [place] [address] Physician Nephrology 09/02/24 Cesar Fair MD 85 [facility] [address] [place] [address] Surgery, Cardiac 11/08/24 documented as of this encounter
--- OUTSIDE RECORDS SUMMARY | 2024-12-10 15:23 | XMS_ITS | Encounter Summary ---
Author Organization [facility] Address [address] [place] [address] Care Team Providers Care Soaker Name Role Phone Lee Fabian MD Primary Care Provider Unavail able Vitaliy Fields MD Unavailable [place] Camejo MD Unavailable Rolando Lopez MD Unavailable Cesar Fair MD Unavailable [phone] Reason for Visit * Auth/Cert Specialty Diagnoses / Procedures Referred By Contac t Referred To Contact Diagnoses left ankle infection Procedures N/A Referral ID Status Reason Start Date Expiration Date Visits Re quested Visits Authorized [id number] 1 1 Encounter Details Date Type Department Care Team (Latest Contact Info) Description 11/11/2024 2:09 PM EST Anesthesia Event [facility] Heart & Vascular [place] at [facility] - Echocardiography Laboratory [address] [place] [phone] Hong Nance MD [address] [place] [address] Anesthesia Record Procedure Summary Procedure Name Responsible [...] cephalic vein (lateral side of arm), right; vqmk-jsb-lfziyr catheter system; 20 gauge (1.25 ); ultrasound guidance; 0; distraction, tolerated well, appears comfortable; 11/12/24; 174211/08/24 002 by Adriane Luna RN 11/12/241742 by Dorys Jackson RN Central Line - Triple Lumen (Adult) 11/08/24; 190; internal jugular vein, right; no longer indicated; 11/12/24; 174211/08/24 190 by Krystina Felipe RN 11/12/241742 by Dorys Jackson RN documented in this encounter Social History Tobacco Use Types Packs/Day Years Used Date Smoking Tobacco: Former Cigarettes 1 29.2 1 977 - 2003 Smokeless Tobacco: Never Alcohol Use Standard Drinks/Week Comments Yes 21 (1 standard drink = 0.6 oz pu re alcohol) [facility] Utilities Answer Date Recorded In the past 12 months has [employer], gas, oil, or water [employer] threatened to shut off services in your [...] time in the past 12 m [facility], were you homeless or living in [...] Procedure Summary Date: 11/11/24 Room / Location: [facility] Heart & Vascular [place] at [facility] - Echocardiography Laboratory Anesthesia Start: 1409 Anesthesia Stop: Procedure: ECHOCARDIOGRAM TRANSESOPHAGEAL Diagnosis: (Other-Comment Required) (Bacteremia and requiring L BKA, Cardiology following.) Scheduled Providers: Hong Nance MD Responsible Provider: Hong Nance MD Anesthesia Type: MAC ASA Status: 4 Anesthesia Type: MAC There were no known notable events for this encounter. Last vitals Vitals Value Taken Time BP Temp Pulse Resp SpO2 98 % 02/13/25 1517 Evaluation Vital signs are in the [...] History: Procedure Laterality Date ??? AMPUTATION Right 2018 TMA ??? AMPUTATION BELOW KNEE Left 11/05/2024 Procedure: LEFT BELOW KNEE AMPUTATION; Surgeon: [place] Camejo MD; Location: [facility]; Service: Orthopaedics; Laterality: Left; ??? AORTOGRAM- ABDOMINAL Left 09/15/2024 Procedure: LEFT LOWER EXTREMITY ANGIOGRAM; Surgeon: Delbert Mcintosh MD; Location: [facility]; Service: Peripheral Vascular; Laterality: Left; ??? BARIATRIC SURGERY 2018 ??? CARDIAC ELECTROPHYSIOLOGY STUDY AND ABLATION x5 ??? CARDIAC PACEMAKER PLACEMENT 2015 ??? CARDIAC SURGERY 2020 watchman device ??? CARDIOVERSION 07/2024 ??? CC PERIPHERAL ANGIOGRAPHY Left 07/2024 LE ??? CHANGE DRESSING WOUND VAC Left 09/10/2024 Procedure: APPLICATION OF WOUND VAC; Surgeon: [place] Camejo MD; Location: [facility]; Service: Orthopaedics; Laterality: Left; ??? FOOT SURGERY Right x5 ??? INCISION AND DRAINAGE FOOT Left ??? OH PROCEDURE MAZE AFIB ??? OSTECTOMY CALCANEOUS Left 09/10/2024 Procedure: ANKLE PARTIAL CALCANECTOMY; Surgeon: [place] Camejo MD; Location: [facility]; Service: Orthopaedics; Laterality: Left; wOUND PARTIALLY CLOSED SUPERFICIALLY, WOUND VAC PLACED ??? TOTAL KNEE ARTHROPLASTY Left 2015 REVISION SAME [...] by 8 bpm Confirmed by MD Claude, [facility] ([id number]) on 11/07/2024 6:25:53 PM NPO Status: Date of Last Liquid Consumption: 11/05/24 Date of Last Solid Consumption: 11/04/24 Time of Last Solid Consumption: 1800 Anesthesia Plan ASA Score: ASA 4 Consent: The anesthetic plan and associated risks was discussed with patient. The use of blood products was discussed with whom consented to blood products. Anesthesia Plan: MAC home service advisor Note I personally evaluated and examined the patient prior to the intra-operative phase of care. Hong Nance MD documented in this encounter Plan of Treatment Upcoming Encounters Date Type Department Care Team (Late st Contact Info) Description 12/14/2024 2:00 PM EDT [facility] Visit [facility] [address] [address] [place] Camejo MD [address] [place], [place] [phone] 12/16/2024 8:30 AM EDT Office Visit [facility] Infectious Disease [address] [place] [phone] Ena Mtz MD [address] [place] [phone] 12/22/2024 10:00 AM EDT Appointment [facility] Heart & Vascular [place] at [facility] - Echocardiography Laboratory [address] [place] [phone] Ena Mtz MD [address] [place] [address] documented as of this encounter Visit Diagnoses [...] documented as of this encounter Care Teams Soaker Relationship Specialty Start Date End Date Lee Fabian MD PCP - General Internal Medicine 09/02/24 Vitaliy Fields MD [address] [address] Cardiovascular Disease 09/02/24 [place] Camejo MD 7 [place] [address] Surgery, Orthopedic 09/02/24 Rolando Lopez MD [address] Transplant - Ph 14 [place] [address] Physician Nephrology 09/02/24 Cesar Fair MD [address] [address] Surgery, Cardiac 11/08/24 documented as of this encounter
--- OUTSIDE RECORDS SUMMARY | 2024-12-10 15:23 | XMS_ITS | Encounter Summary ---
Author Organization [facility] Address [address] [place] [address] Care Team Providers Care Loom Winder Tender Name Role Phone Lee Fabian MD Primary Care Provider Unavail able Vitaliy Fields MD Unavailable [phone] Dallas Camejo MD Unavailable Rolando Lopez MD Unavailable [phone] Cesar Fair MD Unavailable [phone] Reason for Visit * Auth/Cert Specialty Diagnoses / Procedures Referred By Contac t Referred To Contact Diagnoses left ankle infection Procedures N/A Referral ID Status Reason Start Date Expiration Date Visits Re quested Visits Authorized [id number] 1 1 Encounter Details Date Type Department Care Team (Late st Contact Info) Description 11/17/2024 2:20 PM EST Anesthesia Event [facility] Perioperative Surgical Services [address] [place] [phone] Guido Malagon MD [address] [address] Marlin Miner PA-C 99 [facility] [place] [address] Anesthesia Record Procedure Summary Procedure Name Responsible Anesthesiologist Anesthesia Start Time Anesthesia Stop Time Extraction lead(s) laser from dual PM system; 28611 (Left) Guido Person MD 11/17/24 1420 11/17/24 [...] Abena Roper RN PIV-Single luman 11/12/24; 1210; sera alirani vein (lateral side of arm), left; arij-vay-rsemqn catheter system; 22 gauge, 1 in length, 3/4 in length; ultrasound guidance; distraction, tolerated well, appears comfortable; 11/22/24; 1227 11/12/24 1210 by Rosanne Card RN 11/22/24 1227 by Nelson Iqbal RN PIV-Single luman 11/12/24; 1744; medi an vein (underside of arm), right; dprp-vhj-iytigi catheter system; 22 gauge, 1 in length; [...] 0.6 oz pu re alcohol) [facility] Utilities Answer Date Recorded In the past 12 months has th e [employer], gas, oil, or water company threatened to [...] any time in the past 12 m [facility], were you homeless or living in a care home (including now)? No 11/03/2024 Sex and [...] Procedure Summary Date: 11/17/24 Room / Location: [address] Main OR Anesthesia Start: 1420 Anesthesia Stop: 1653 Procedures: Extraction lead(s) laser from dual PM system; 72457 (Left) Micra Leadless Pacemaker Insert/Replacement; 49479 Diagnosis: Pacemaker infection, subsequent encounter (Pacemaker infection, [...] Extraction lead(s) laser from dual PM system; 92464, Left Micra Leadless Pacemaker Insert/Replacement; 42241, N/A Pre-operative Diagnosis: Pacemaker infection, subsequent encounter [...] predominant left to right shunting indicated by colorDoppler) atrial fibrillation (on Eliquis; s/p watchman 2018) [...] KNEE AMPUTATION; Surgeon: [place] Camejo MD; Location: [facility] OR; Service: Orthopaedics; Laterality: Left; AORTOGRAM- ABDOMINAL Left 09/15/2024 Procedure: LEFT LOWER EXTREMITY ANGIOGRAM; Surgeon: Delbert Mcintosh MD; Location: [facility] OR; Service: Peripheral Vascular; Laterality: Left; BARIATRIC SURGERY 2018 CARDIAC ELECTROPHYSIOLOGY STUDY AND ABLATION x5 CARDIAC PACEMAKER PLACEMENT 2016 CARDIAC SURGERY 2020 watchman device CARDIOVERSION 07/2024 CC PERIPHERAL ANGIOGRAPHY Left 07/2024 LE CHANGE DRESSING WOUND VAC Left 09/10/2024 Procedure: APPLICATION OF WOUND VAC; Surgeon: [place] Camejo MD; Location: [facility]; Service: Orthopaedics; Laterality: Left; FOOT SURGERY Right x5 INCISION AND DRAINAGE FOOT Left OH PROCEDURE MAZE AFIB OSTECTOMY CALCANEOUS Left 09/10/2024 Procedure: ANKLE PARTIAL CALCANECTOMY; Surgeon: [place] Camejo MD; Location: [facility] OR; Service: Orthopaedics; Laterality: Left; wOUND [...] by 8 bpm Confirmed by MD Claude, [facility] ([id number]) on 11/07/2024 6:25:53 PM [...] 2:00 PM EDT Office [place] [address] [place] Camejo MD [address] [place] [address] 12/16/2024 8:30 AM EDT Office Visit [facility] Infectious Disease [address] [place] [phone] Ena Mtz MD [address] [place] [address] 12/22/2024 10:00 AM EDT Appointment [facility] Heart & Vascular [place] at [facility] - Echocardiography Laboratory [address] [place] [address] Ena Mtz MD [address] [place] [address] documented as of this encounter [...] Post-procedure: stablization device applied Marlin Miner PA-C [place] ANESTHESIA documented in this encounter Visit Diagnoses [...] documented as of this encounter Care Teams Loom Winder Tender Relationship Specialty Start Date End Date Lee Fabian MD PCP - General Internal Medicine 09/02/24 Vitaliy Fields MD [address] [address] Cardiovascular Disease 09/02/24 [place] Camejo MD 7 [place] [address] Surgery, Orthopedic 09/02/24 Rolando Lopez MD [address] Transplant - Ph 14 [place] [address] Physician Nephrology 09/02/24 Cesar Fair MD [address] [address] Surgery, Cardiac 11/08/24 documented as of this encounter
--- OUTSIDE RECORDS SUMMARY | 2024-12-10 15:23 | XMS_ITS | Encounter Summary ---
Author Organization [facility] Address [address] [place] [address] Care Team Providers Care Turret Press Operator Name Role Phone Lee Fabian MD Primary Care Provider Unavail able Vitaliy Fields MD Unavailable Dallas Camejo MD Unavailable Rolando Lopez MD Unavailable Cesar Fair MD Unavailable Daisy Her PT Unavailable [phone] Reason for Referral * Home Health (Routine) - Pending Review Specialty Diagnoses / Procedures Referred By Contac t Referred To Contact Diagnoses Endocarditis Leroy Jean MD [address] [place] [address] [facility]ice [address] [place] [phone] Referral ID Status Reason Start Date Expiration Date V isits Requested Visits Authorized [id number] Pending Review 11/24/2024 11/25/2025 999 999 Question Answer Primary Reason for Home Health (Enter diagnosis; avoid symptoms): Acute osteomyelitis of left calcaneus (HCC) [[id number]] Requested SOC Date 11/26/2024 Physician to follow [...] Expiration Date Visits Re quested Visits Authorized [id number] 1 1 Encounter Details Date Type Department Care Team (Late st Contact Info) Description 11/02/2024 6:10 PM EST - 11/25/2024 7:51 PM EST Hospital Encounter BLISS [address] [phone] Dallas Camejo MD [address] [place] [phone] Shay Martin MD [address] [place] [phone] Luis Degroot MD [address] [place] [address] Maddison Villalpando MD [address] [place] [phone] Fredi Powers MD [address] [place] [id number] Brandon Clemente MD [address] [place] [phone] Lela Amor MD [address] [place] [phone] Gianluca Calles MD [address] [place], [place] [phone] (Work) Leroy Jean MD [address] [place] [address] Acute osteomyelitis of left calcaneus (HCC) (Primary [...] drink = 0.6 oz pu re alcohol) [facility] Utilities Answer Date Recorded In the past 12 months has [employer], gas, oil, or water [employer] threatened to shut off services in your [...] any time in the past 12 m [facility], were you homeless or living in [...] MD (Surgery, Cardiac) Daisy Her PT as Asset Accountant (Physical Medicine and Rehabilitation) PRIMARY DISCHARGE DIAGNOSIS [...] regurgitation (POA: Unknown) Resolved Problems: DISCHARGE DISPOSITION Assisted Facility Code Status Procedures Full code . [...] Continuous Glucose Sensor (FreeStyle Wallace 3 Sensor) [facility] INJECT 1 DEVICE INTO THE SKIN EVERY [...] Routine Referral Type: Home Health Referral Location: [facility] [...] Department Center 12/07/2024 1:30 PM ROOM, ICD/PACER/LOOP [facility] ARRHY [facility] Arrhythmi 12/15/2024 10:45 AM Alba Ramos MD [id number] PM&r 12/16/2024 8:30 AM Ena Mtz MD [...] PAD, RLS and CKD3 that presents to [facility] inpatient floor as a direct admit [...] while on IV antibiotics. Fax results to [phone]. Patient will need to be scheduled [...] Case IDs Date Procedure Surgeon Location Status [id number] 11/05/24 LEFT BELOW KNEE AMPUTATION Dallas Camejo MD [facility] OR Comp [id number] 11/17/24 Extraction lead(s) laser from dual PM system; [id number] Rui Pabon MD Main OR Comp [id number] 11/19/24 CVC INSERT (TUNNEL)W/O PORT > 5 YRS Devon Vogt DO IR Comp Diagnostic Studies: XR Foot 1 view-Left Result Date: 11/02/2024 This exam was performed in office at [facility] and images reviewed by orthopedic provider. [...] Discharge Instr - Other Orders* Gretel Hinds, HOSPITALITY HOUSEKEEPER - 11/17/2024 9:20 AM EST Cardiac Device Extraction Discharge Instructions Important phone numbers: Groundwater Monitoring Technician/Surgeon???s office: [phone] (8am-4:30pm Fri - Friday Our answering service [...] If it does not stop, go to [facility] ER or walk-in center. If you experience any of the above, call your surgeon/abalone diver???s office immediately. If still present, remove the [...] Report any of these symptoms to your abalone diver. Call your primary circuit judge if you experience any of the following: [...] Discharge Instructions Important phone numbers: Pacemaker Clinic: [phone] (8am-4:30pm Fri-Friday) Groundwater Monitoring Technician/Surgeon???s office: [phone] (8am-4:30pm Fri -Friday) Our answering service is [...] experience any of the above, call your abalone diver???s office immediately It is normal to have [...] dental procedure. You should call your primary circuit judge if you experience any of the following: [...] when you get home. If your primary circuit judge???s office will monitor your pacemaker, please call [...] Continuous Glucose Sensor (FreeStyle Wallace 3 Sensor) Mis INJECT 1 DEVICE [...] through the weekend - advised to [facility] - phone number on pg 5 of [facility]) Do you have any questions about your [...] Plan Plan Home w/family and [facility] Patient/Family in Agreement with Plan yes Final Discharge Disposition Code 06 - home with home health care Final Case Management Care Plan Note Summary: Per provider, patient is medically ready to transition home with services. Confirmed that patient is able to obtain medications/food/necessities post discharge. Patient now refusing HSC (LTACH) and returning home with son, [facility] for IV abx and [facility]. Final Destination: Home with son and [facility] Plan for home support/Caregiver/responsible person: Son and [facility] Follow-up provider appointment: Per AVS/W-10 Equipment Ordered [...] level of independence with self-care tasks. Current [facility] Daily Activity Score: 18 Precautions/Restrictions: aspiration, [...] in recliner, in NAD on RA, agreeable. Private Branch Exchange Installer + limb protector donned to LLE Pain Assessment Pre/Posttreatment Pain Comment denied pain Coping Observed Emotional State calm;cooperative Safety Safety WDL WDL Progressive Mobility Progressive Mobility Level Achieved Transferring to Chair [facility] Daily Activity Putting on and taking off Lower Body Clothing? 3 Bathing (including washing/rinsing/drying)? 2 Toileting (includes using toilet, bedpan, or urinal)? 2 Putting on and taking off upper body clothing? 3 Taking care of personal grooming such as brushing teeth? 4 Eating meals? 4 [facility] Daily Activity Score 18 Progress Summary (OT) Progress Toward Functional Goals (OT) progress toward functional goals is good Sign: Christen Tapia OT * Aditi Jones PA-C - 11/25/2024 11:50 AM EST PHYSICAL MEDICINE & REHABILITATION CONSULT FOLLOW-UP NOTE Patients Name: Blas Genao : 1960 MR Number: [id number] Reason for Consultation: Amputee rehab needs Date [...] acute CHFmrEF, pain. He is NWB to [facility]. 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 He mayhave ability to progress to [...] Units 2,000 Units Oral Daily Corbin Lamb HOSPITALITY HOUSEKEEPER 2,000 Units at 11/25/24 0934 cyanocobalamin (VITAMIN B-12) tablet 2,500 mcg 2,500 mcg Oral Daily Corbin Lamb HOSPITALITY HOUSEKEEPER 2,500 mcg at 11/25/24 0932 DAPTOmycin (CUBICIN) [...] injection 5,000 Units 5,000 Units Subcutaneous Q8H [facility] Gianluca Calles MD 5,000 Units [...] 3 mL Nebulization Q2H PRN Corbin Adonis, HOSPITALITY HOUSEKEEPER 3 mL at 11/07/24 1025 lactulose (ENULOSE) 10 gm/15 mL solution 20 g 20 g Oral Q4H PRN Corbin Adonis, HOSPITALITY HOUSEKEEPER melatonin tablet 3 mg 3 mg Oral Nightly PRN Corbin Adonis, HOSPITALITY HOUSEKEEPER 3 mg at 11/19/24 2222 methocarbamol (ROBAXIN) tablet 1,000 mg 1,000 mg Oral 4x Daily Corbin Adonis, HOSPITALITY HOUSEKEEPER 1,000 mg at 11/25/24 0934 metoPROLOL TARTRATE (LOPRESSOR) tablet 50 mg 50 mg Oral BID Corbin Adonis, HOSPITALITY HOUSEKEEPER 50 mg at 11/25/24 0935 multivitamin with minerals tablet 1 tablet 1 tablet Oral Daily Corbin Adonis, HOSPITALITY HOUSEKEEPER 1 tablet at 11/25/24 0935 naloxone (NARCAN) 0.4 mg/mL injection 0.4 mg 0.4 mg Intravenous Q5 Min PRN Corbin Adonis, HOSPITALITY HOUSEKEEPER naloxone (NARCAN) 0.4 mg/mL injection 0.4 mg 0.4 mg Intravenous Q5 Min PRN Corbin Adonis, HOSPITALITY HOUSEKEEPER nicotine (NICODERM CQ) 21 MG/24HR patch 1 patch 1 patch Transdermal Daily Corbin Adonis, HOSPITALITY HOUSEKEEPER 1 patch at 11/25/24 0930 ondansetron (ZOFRAN) injection 4 mg 4 mg Intravenous Q6H PRN Corbin Adonis, HOSPITALITY HOUSEKEEPER 4 mg at 11/17/24 1639 PANTOprazole (PROTONIX) EC tablet 40 mg 40 mg Oral Daily Corbin Adonis, HOSPITALITY HOUSEKEEPER 40 mg at 11/25/24 0935 polyethylene glycol (miraLAx) packet 17 g 17 g Oral Daily Corbin Adonis, HOSPITALITY HOUSEKEEPER 17 g at 11/25/24 0932 [Provider Held] pravastatin (PRAVACHOL) tablet 20 mg 20 mg Oral Daily Corbin Adonis, HOSPITALITY HOUSEKEEPER pregabalin (LYRICA) capsule 100 mg 100 mg Oral TID Corbin Adonis, HOSPITALITY HOUSEKEEPER 100 mg at 11/25/24 0935 senna-docusate (SENNA-S) 8.6-50 MG tablet 2 tablet 2 tablet Oral BID Corbin Adonis, HOSPITALITY HOUSEKEEPER 2 tablet at 11/25/24 0936 thiamine mononitrate [...] S/p Left BKA with ampushield and stump historical records administrator C/D/I Skin: No skin breakdown to exposed [...] has been excellent throughout his stay at [facility]. Plan of Care Patient's [...] as outpatient to follow-up on endocarditis per ID recommendations. ID recommendations: Daptomycin 975 mg IV every 24 hours through December 28, 2024 Ceftriaxone 2 gram IV every 24 hours through December 28, 2024 CBC, LFTs, creatinine with EGFR, CK, ESR, CRP once a week while on IV antibiotics. Fax results to [phone]. Patient will need to be scheduled [...] again today. Upon arrival he had a lift team technician in the room with him.Waited outside for [...] while on IV antibiotics. Fax results to [phone] 4. Patient will need to be scheduled for repeat TATIANNA end of November. Patient would like to get this done at [facility] He can follow-up with me on 12/16/2024 at 8:30 AM Current antibiotic/day of therapy: Anti-infectives (From admission, onward) Start Dose/Rate Route Frequency Ordered Stop 11/24/24 0000 cefTRIAXone 2 g in sodium chloride-MBP 0.9% 100 mL IVPB 2 g Intravenous Every 24 hours 11/23/24 1633 12/28/24 23511/23/24 0000 sodium chloride 0.9 % SOLN 50 [...] 0849 Sign Ena Mtz MD, FACP, [facility] Infectious Diseases Available via [employer] SUBJECTIVE Remains in the hospital awaiting placement [...] not compromised. This report was generated using [employer] Speaking dictation software. Although every attempt has been made by the provider to proofread this document, occasional misspellings and typographical errors may still be present. * Gianluca Calles MD - 11/23/2024 3:06 PM EST HOSPITAL MEDICINE PROGRESS NOTE Assessment [...] MD 11/23/2024 3:06 PM * Milan Vale PTA - 11/23/2024 2:03 PM EST Physical Therapy [...] level of independence with functional mobility. Current [facility] Basic Mobility Score: (P) 18 Rehab [...] upon arrival, RN in room. Ampushield and historical records administrator inplace. Both agreeable for tx Existing Precautions/Restrictions [...] Progressive Mobility Progressive Mobility Level Achieved Ambulation [facility] Basic Mobility Turning from your back [...] Climbing 3-5 steps with a railing? 1 [facility] Basic Mobility Score 18 Therapy Assessment/Plan [...] c/w Jardiance - regarding the question of fpc PICC for Abx, patient high risk for PICC and proline placed instead on 11/19/24 - Patient should follow up with his outpatient records management director on discharge and get repeat lab work [...] found for: TACROLIMUS No results found for: [id number] , TOTVOL , CRCLR , PERIOD No [...] Q24H New Bag, 2 g at 11/22 114 chlorhexidine gluconate 2 % wipes - urethral [...] mg, PO, QAM Given, [address] [place] [address] empagliflozin (JARDIANCE) 25 mg 25 mg, PO, [...] Sign: Isabel Lee PA-C 11/23/2024 7:24 AM [facility] Nephrology Office [phone] Associated attestation - Anmol Reynoso MD - [...] - Patient can follow-up with his outpatient records management director upon discharge. Sign: Anmol Reynoso MD 11/23/2024 2:54 PM * Luz Escobedo RN - 11/22/2024 2:40 PM EST Attached media from the original note were not included. Micra AV leadless Pacemaker evaluation completed on B10E. Per patient request and verbal order SharronSHUBHAM Pitts: LRL increased from 50 bpm to 60 bpm. Presenting rhythm: AM/HYDRAULIC CONTROLS TECHNICIAN @ 62 bpm. Underlying rhythm: CHB. AM/HYDRAULIC CONTROLS TECHNICIAN pacing 81%, with total V-pacing 100%. Battery [...] 52 (!) 57 (!) 58 Resp: 18 Temp: 97.4 ??F (36.3 ??C) 97.4 [...] level of independence with self-care tasks. Current [facility] Daily Activity Score: 16 Precautions/Restrictions: aspiration, [...] Progressive Mobility Progressive Mobility Level Achieved Ambulation [facility] Daily Activity Putting on and taking off Lower Body Clothing? 3 Bathing (including washing/rinsing/drying)? 2 Toileting (includes using toilet, bedpan, or urinal)? 2 Putting on and taking off upper body clothing? 3 Taking care of personal grooming such as brushing teeth? 3 Eating meals? 3 [facility] Daily Activity Score 16 Progress Summary [...] syndrome. Followed chronically by Dr Lopez in [place] Cr peak this admission 2.1mg/dL in the setting of bacteremia and endocarditis. 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 Overall suggesting a hemodynamic renal injury improved with aggressive diuresis Net -27L Cr downtrended with diuretic holiday Plan: - Ok to restart PO bumex 2mg daily - c/w Jardiance - regarding the question of fpc PICC for Abx, patient high risk for [...] found for: TACROLIMUS No results found for: [id number] , TOTVOL , CRCLR , PERIOD No [...] Sign: Anmol Reynoso MD 11/22/2024 9:34 AM [facility] Nephrology Office [phone] * Roberto Carranza RECOVERY AUDITOR - 11/22/2024 8:46 AM EST Physical Therapy [...] level of independence with functional mobility. Current [facility] Basic Mobility Score: 16 Rehab Plan [...] Progressive Mobility Level Achieved Transferring to Chair [facility] Basic Mobility Turning from your back [...] Climbing 3-5 steps with a railing? 1 [facility] Basic Mobility Score 16 Therapy Assessment/Plan [...] the original note were not included. EMILIANA [facility] PROGRESS NOTE Outpatient Mental Health Counselor: [facility] Assessment & Plan Assessment 63 year old male with hypertension, hyperlipidemia, diabetes, CKD stage III, peripheral artery disease, diabetes, foot infection with osteomyelitis, complete heart block s/p dual chamber pacemaker [id number], atrial fibrillation s/p multiple ablations and cardioversions [...] by 8 bpm Confirmed by MD Claude, [facility] ([id number]) on 11/07/2024 6:25:53 PM TATIANNA [...] Compared to previous outside study report from [facility] on 08/05/2024, Mitral and tricuspid regurgitation were not previously reported. Recommend transesophageal echocardiogram if clinically indicated. Brain MRI 11/12/2024 No acute intracranial findings or suspicious intracranial lesions. No septic emboli. All additional appropriate imaging studies within the past 24 hours reviewed - images reviewed and independently interpreted. Sign Gema Jane APRN [facility] Heart & Vascular [place] 11/22/2024 8:19 AM * Jose Adair MD [...] found for: TACROLIMUS No results found for: [id number] , TOTVOL , CRCLR , PERIOD No [...] MD 11/20/2024 11:44 AM * Elsy Coronel, HOSPITALITY HOUSEKEEPER - 11/20/2024 9:23 AM EST Inpatient Nephrology [...] found for: TACROLIMUS No results found for: [id number] , TOTVOL , CRCLR , PERIOD No results found for: IRON , TIBC , IRONSAT , UIBC Lab Results Component Value Date BILITOT 0.2 11/17/2024 AST 24 11/17/2024 Signed: Elsy Coronel APRN 11/20/2024 9:23 AM Associated attestation - Jose Adair MD - 11/20/2024 6:31 PM EST ATTESTATION: This encounter was done in conjunction with COLLINS Kippt. I provided the substantive portion of thevisit [...] Calles MD - 11/19/2024 2:22 PM EST [facility] [...] while on IV antibiotics. Fax results to [phone] 4. Patient will need to be scheduled for repeat TATIANNA end of November Patient would like to follow-up with infectious disease close to home. I have communicated with Dr. Saritha Coffey office (infectious disease) at [phone]. She stated that this patient is very complicated for [facility] and she will not be following this patient He can follow-up with me in my office in 3 to 4 weeks. I would recommend that he be scheduled for repeat TATIANNA end of November at here at [facility] Current antibiotic/day of therapy: Anti-infectives (From [...] [facility] Infectious Diseases Available via [employer] SUBJECTIVE Afebrile, status post AICD extraction CURRENT [...] care and coordination of care with his jmg-ls-nccyx infectious disease physician and office Of note, some information is being carried forward from prior records for informational purposes only and is being cited so that efficiency, safety and quality of this patient's care is not compromised. This report was generated using [employer] Speaking dictation software. Although every attempt has [...] left stoplight for his review and will jena back next week to review with the patient. * Valencia Lau APRN - 11/19/2024 8:02 AM EST Images from the original note were not included. EMILIANA VYAS CARDIOLOGY PROGRESS NOTE Outpatient Mental Health Counselor: [facility] Assessment & Plan Assessment 63 year old male with hypertension, hyperlipidemia, diabetes, CKD stage III, peripheral artery disease, diabetes, foot infection with osteomyelitis, complete heart block s/p dual chamber pacemaker [id number], atrial fibrillation s/p multiple ablations and cardioversions [...] injection 5,000 Units On hold since Fri11/16/2024 [id number] until manually unheld; held by Herberth Whitmore [...] by 8 bpm Confirmed by MD Claude, [facility] ([id number]) on 11/07/2024 6:25:53 PM TATIANNA [...] Compared to previous outside study report from [facility] on 08/05/2024, Mitral and tricuspid regurgitation were not previously reported. Recommend transesophageal echocardiogram if clinically indicated. Brain MRI 11/12/2024 No acute intracranial findings or suspicious intracranial lesions. No septic emboli. All additional appropriate imaging studies within the past 24 hours reviewed - images reviewed and independently interpreted. Sign Valencia Lau APRN [facility] Heart & Vascular Sharon 11/19/2024 8:54 AM * Lela Amor MD [...] 11/18/2024 0530 Gross per 24 hour Intake 2009 ml Output 1550 ml Net 460 ml [...] interrogation ordered for post- OP. Presenting rhythm: AM-HYDRAULIC CONTROLS TECHNICIAN @ 69 bpm. Underlying rhythm: No ventricular response greater than 40 bpm. AM-HYDRAULIC CONTROLS TECHNICIAN @ 84.8%. Battery and device parameters evaluated [...] following is my assessment: Reason For Order: Property Utilization Officer Orders Ordered Cardiac monitoring / telemetry Until [...] Name: Blas Genao : 1960 MR Number: [id number] Reason for Consultation: Rehabilitation potential Date of [...] 11/02. He underwent L BKA with Dr. Cameoj on 11/05. Course complicated by bacteremia with [...] tablet 975 mg 975 mg Oral Q6H [facility] Corbindenise Lamb, HOSPITALITY HOUSEKEEPER 975 mg at 026 acetaminophen (TYLENOL) tablet 975 mg 975 mg Oral Q6H PRN Corbindenise Lamb HOSPITALITY HOUSEKEEPER amiODARONE (PACERONE) tablet 200 mg 200 mg Oral Daily Corbindenise Lamb, HOSPITALITY HOUSEKEEPER 200 mg at 11/18/24 1030 amLODIPine (NORVASC) tablet 10 mg 10 mg Oral Daily Corbindenise Lamb, HOSPITALITY HOUSEKEEPER 10 mg at 11/18/24 1029 benzocaine-menthol (CHLORASEPTIC) 6-10 MG lozenge 1 lozenge 1 lozenge Mouth/Throat Q2H PRN Baldomero Hinds, HOSPITALITY HOUSEKEEPER bisacodyl (DULCOLAX) suppository 10 mg 10 mg Rectal Daily PRN Corbindenise Lamb HOSPITALITY HOUSEKEEPER bumetanide (BUMEX) injection 1 mg 1 mg Intravenous Q24H Corbindenise Lamb HOSPITALITY HOUSEKEEPER 1 mg at 11/18/24 1103 buPROPion (WELLBUTRIN SR) 12 hr tablet 150 mg 150 mg Oral BID Corbin Adonis, HOSPITALITY HOUSEKEEPER 150 mg at 11/18/24 1028 calcium carbonate (TUMS) chewable tablet 1,000 mg 1,000 mg Oral Q12H PRN Corbindenise Lamb HOSPITALITY HOUSEKEEPER calcium citrate (CALCITRATE) tablet 950 mg 950 mg Oral BID with meals Corbin Adonis, HOSPITALITY HOUSEKEEPER 950 mgat 11/18/24 1105 carboxymethylcellulose (REFRESH PLUS) 0.5 % ophthalmic solution 2 drop 2 drop Each Eye Q2H PRN Gretel Hinds APRN cefTRIAXone (ROCEPHIN) 2 g in sodium chloride-MBP (NS) 100 mL IVPB-MBP 2 g Intravenous Q24H MD Dylan 200 mL/hr at 11/18/24 1235 2 g at 11/18/24 1235 chlorhexidine gluconate 2 % wipes - urethral catheter CHG application Topical Daily Corbin Lamb HOSPITALITY HOUSEKEEPER Given at 11/18/24 1031 cholecalciferol tablet 2,000 Units 2,000 Units Oral Daily Corbin Lamb, HOSPITALITY HOUSEKEEPER 2,000 Units at 11/18/24 1103 cyanocobalamin (VITAMIN B-12) tablet 2,500 mcg 2,500 mcg Oral Daily Corbin Lamb HOSPITALITY HOUSEKEEPER 2,500 mcg at 11/18/24 1027 DAPTOmycin (CUBICIN) 975 mg in sodium chloride (NS) 0.9 % 50 mL IVPB 10 mg/kg (Adjusted) Intravenous Q24H Corbin Lamb APRN 0 mL/hr at 11/16/24 1712 975 mg at 11/17/24 1420 donepezil (ARICEPT) tablet 10 mg 10 mg Oral QAM Corbin Lamb HOSPITALITY HOUSEKEEPER 10 mg at 11/18/24 1105 [Provider Held] empagliflozin (JARDIANCE) 25 mg 25 mg Oral Daily Corbin Lamb HOSPITALITY HOUSEKEEPER 25 mg at 11/04/24 0756 folic acid (FOLVITE) tablet 1 mg 1 mg Oral Daily Corbin Lamb HOSPITALITY HOUSEKEEPER 1 mg at 11/18/24 1028 [Provider Held] glimepiride (AMARYL) tablet 2 mg 2 mg Oral Daily with breakfast Corbin Lamb HOSPITALITY HOUSEKEEPER 2 mg at 11/04/24 0757 [Provider Held] heparin (porcine) 5000 unit/mL injection 5,000 Units 5,000 Units Subcutaneous Q8H JUDSON Corbin Lamb HOSPITALITY HOUSEKEEPER 5,000 Units at 11/16/24 1714 HYDROmorphone (DILAUDID) tablet 2 mg 2 mg Oral Q3H PRN Corbin Lamb HOSPITALITY HOUSEKEEPER 2 mg at 11/18/24 1030 HYDROmorphone (DILAUDID) tablet 4 mg 4 mg Oral Q3H PRN Corbin Lamb HOSPITALITY HOUSEKEEPER 4 mg at 11/16/24 2213 insulin glargine (LANtus/SEMGLEE) 100 units/mL injection 10 Units 10 Units Subcutaneous Daily Corbin Lamb HOSPITALITY HOUSEKEEPER 10 Units at 11/18/24 1032 insulin lispro (HumaLOG/ADMELOG) 100 units/mL injection 1-6 Units 1-6 Units Subcutaneous TID with meals Corbin Adonis, HOSPITALITY HOUSEKEEPER 3 Units at 11/18/24 1232 insulin lispro (HumaLOG/ADMELOG) 100 units/mL injection 3 Units 3 Units Subcutaneous TID with mealsNiccarmen Lamb HOSPITALITY HOUSEKEEPER 3 Units at 11/18/24 1232 ipratropium-albuterol (DUONEB) 0.5-2.5 mg/3 mL nebulizer solution 3 mL 3 mL Nebulization Q2H PRN Corbin Lamb, HOSPITALITY HOUSEKEEPER 3 mL at 11/07/24 1025 lactulose (ENULOSE) 10 gm/15 mL solution 20 g 20 g Oral Q4H PRN Corbin Lamb HOSPITALITY HOUSEKEEPER melatonin tablet 3 mg 3 mg Oral Nightly PRN Corbin Lamb HOSPITALITY HOUSEKEEPER 3 mg at 11/16/24 2215 methocarbamol (ROBAXIN) tablet 1,000 mg 1,000 mg Oral 4x Daily Corbin Lamb HOSPITALITY HOUSEKEEPER 1,000 mg at 11/18/24 1105 metoPROLOL TARTRATE (LOPRESSOR) tablet 50 mg 50 mg Oral BID Corbin Lamb HOSPITALITY HOUSEKEEPER 50 mg at 11/18/24 1031 multivitamin with minerals tablet 1 tablet 1 tablet Oral Daily Corbin Lamb HOSPITALITY HOUSEKEEPER 1 tablet at 11/18/24 1028 naloxone (NARCAN) 0.4 mg/mL injection 0.4 mg 0.4 mg Intravenous Q5 Min PRN Corbindenise Lamb HOSPITALITY HOUSEKEEPER naloxone (NARCAN) 0.4 mg/mL injection 0.4 mg 0.4 mg Intravenous Q5 Min PRN Corbin Lamb HOSPITALITY HOUSEKEEPER nicotine (NICODERM CQ) 21 MG/24HR patch 1 patch 1 patch Transdermal Daily Corbindenise Lamb HOSPITALITY HOUSEKEEPER 1 patch at 11/18/24 1030 ondansetron (ZOFRAN) injection 4 mg 4 mg Intravenous Q6H PRN Corbin Lamb HOSPITALITY HOUSEKEEPER 4 mg at 11/17/24 1639 PANTOprazole (PROTONIX) EC tablet 40 mg 40 mg Oral Daily Corbin Adonis, HOSPITALITY HOUSEKEEPER 40 mg at 11/18/24 1029 polyethylene glycol (miraLAx) packet 17 g 17 g Oral Daily Corbin Adonis, HOSPITALITY HOUSEKEEPER 17 g at 11/18/24 1040 [Provider Held] pravastatin (PRAVACHOL) tablet 20 mg 20 mg Oral Daily Corbin Adonis, HOSPITALITY HOUSEKEEPER pregabalin (LYRICA) capsule 100 mg 100 mg Oral TID Corbin Adonis, HOSPITALITY HOUSEKEEPER 100 mg at 11/18/24 1105 senna-docusate (SENNA-S) 8.6-50 MG tablet 2 tablet 2 tablet Oral BID Corbin Adonis, HOSPITALITY HOUSEKEEPER 2 tablet at 11/18/24 1032 thiamine mononitrate (VITAMIN B-1) tablet 200 mg 200 mg Oral Daily Corbin Adonis, HOSPITALITY HOUSEKEEPER 200 mg at11/18/24 1031 Physical Exam: Vitals: [...] S/p Left BKA with ampushield and stump historical records administrator C/D/I Skin: No skin breakdown to exposed [...] interrogation ordered for post- OP. Presenting rhythm: AM-HYDRAULIC CONTROLS TECHNICIAN @ 69 bpm. Underlying rhythm: No ventricular response greater than 40 bpm. AM-HYDRAULIC CONTROLS TECHNICIAN @ 84.8%. Battery and device parameters evaluated [...] try to reach Dr. Saritha Coffey at [facility] tomorrow Current antibiotic/day of therapy: Anti-infectives [...] [facility] Infectious Diseases Available via [employer] SUBJECTIVE Afebrile, status post AICD extraction CURRENT [...] not compromised. This report was generated using [employer] dictation software. Although every attempt has been made by the provider to proofread this document, occasional misspellings and typographical errors may still be present. * Valencia Lau APRN - 11/18/2024 8:48 AM EST Images from the original note were not included. [facility] PROGRESS NOTE Outpatient Mental Health Counselor: [facility] Assessment & Plan Assessment 63 year old male with hypertension, hyperlipidemia, diabetes, CKD stage III, peripheral artery disease, diabetes, foot infection with osteomyelitis, complete heart block s/p dual chamber pacemaker [id number], atrial fibrillation s/p multiple ablations and cardioversions [...] PO, Daily Given, 10 mg at 11/17 0816 bumetanide (BUMEX) injection 1 mg 1 mg, [...] injection 5,000 Units On hold since Fri11/16/2024 [id number] until manually unheld; held by Herberth Whitmore [...] with meals Given, 1 Units at 11/17 185 insulin lispro (HumaLOG/ADMELOG) 100 units/mL injection 3 Units 3 Units, SC, TID with meals Given, 3 Units at 11/17 121 methocarbamol (ROBAXIN) tablet 1,000 mg 1,000 mg, [...] by 8 bpm Confirmed by MD Claude, [facility] ([id number]) on 11/07/2024 6:25:53 PM TATIANNA [...] Compared to previous outside study report from [facility] on 08/05/2024, Mitral and tricuspid regurgitation were not previously reported. Recommend transesophageal echocardiogram if clinically indicated. Brain MRI 11/12/2024 No acute intracranial findings or suspicious intracranial lesions. No septic emboli. All additional appropriate imaging studies within the past 24 hours reviewed - images reviewed and independently interpreted. Sign Valencia Lau APRN [facility] [place] 11/18/2024 8:48 AM * Cristina Rodriguez APRN [...] Department Center 12/07/2024 1:30 PM ROOM, ICD/PACER/LOOP [facility] ARRHY [facility] Arrhythmi Current Facility-Administered Medications: acetaminophen (TYLENOL) tablet 975 mg, 975 mg, Oral, Q6H JUDSON, Corbin Adonis, HOSPITALITY HOUSEKEEPER, 650 mg at 11/18/24 0305 acetaminophen (TYLENOL) tablet 975 mg, 975 mg, Oral, Q6H PRN, Corbindenise Lamb, HOSPITALITY HOUSEKEEPER amiODARONE (PACERONE) tablet 200 mg, 200 mg, Oral, Daily, Corbin Adonis, HOSPITALITY HOUSEKEEPER, 200 mg at 11/17/24 0813 amLODIPine (NORVASC) tablet 10 mg, 10 mg, Oral, Daily, Corbin Adonis, HOSPITALITY HOUSEKEEPER, 10 mg at 11/17/24 0816 benzocaine-menthol (CHLORASEPTIC) 6-10 MG lozenge 1 lozenge, 1 lozenge, Mouth/Throat, Q2H PRN, Gretel Hinds APRN bisacodyl (DULCOLAX) suppository 10 mg, 10 mg, Rectal, Daily PRN, Corbin Lamb HOSPITALITY HOUSEKEEPER bumetanide (BUMEX) injection 1 mg, 1 mg, Intravenous, Q24H, Corbindenise Lamb, HOSPITALITY HOUSEKEEPER, 1 mg at 11/17/24 0813 buPROPion (WELLBUTRIN SR) 12 hr tablet 150 mg, 150 mg, Oral, BID, Corbin Adonis, HOSPITALITY HOUSEKEEPER, 150 mg at11/17/24 2125 calcium carbonate (TUMS) chewable tablet 1,000 mg, 1,000 mg, Oral, Q12H PRN, Corbin Adonis, HOSPITALITY HOUSEKEEPER calcium citrate (CALCITRATE) tablet 950 mg, 950 mg, Oral, BID with meals, Corbin Adonis, HOSPITALITY HOUSEKEEPER, 950 mg at 11/17/24 0813 carboxymethylcellulose (REFRESH PLUS) 0.5 % ophthalmic solution 2 drop, 2 drop, Each Eye, Q2H PRN, Gretel Hinds, HOSPITALITY HOUSEKEEPER chlorhexidine gluconate 2 % wipes - urethral catheter CHG application, , Topical, Daily, Corbin Adonis, HOSPITALITY HOUSEKEEPER cholecalciferol tablet 2,000 Units, 2,000 Units, Oral, Daily, Corbin Adonis, HOSPITALITY HOUSEKEEPER, 2,000 Units at 11/17/24 0815 cyanocobalamin (VITAMIN B-12) tablet 2,500 mcg, 2,500 mcg, Oral, Daily, Corbin Adonis, HOSPITALITY HOUSEKEEPER, 2,500 mcg at 11/17/24 0814 DAPTOmycin (CUBICIN) 975 mg in sodium chloride (NS) 0.9 % 50 mL IVPB, 10 mg/kg (Adjusted), Intravenous, Q24H, Corbin Adonis, HOSPITALITY HOUSEKEEPER, Last Rate: 0 mL/hr at 11/16/24 1712, 975 mg at 11/17/24 1420 donepezil (ARICEPT) tablet 10 mg, 10 mg, Oral, QAM, Corbin Adonis, HOSPITALITY HOUSEKEEPER, 10 mg at 11/17/24 0816 [Provider Held] empagliflozin (JARDIANCE) 25 mg, 25 mg, Oral, Daily, Corbin Adonis, HOSPITALITY HOUSEKEEPER, 25 mg at 11/04/24 0756 folic acid (FOLVITE) tablet 1 mg, 1 mg, Oral, Daily, Corbin Adonis, HOSPITALITY HOUSEKEEPER, 1 mg at 11/17/24 0813 [Provider Held] glimepiride (AMARYL) tablet 2 mg, 2 mg, Oral, Daily with breakfast, Corbin Adonis, HOSPITALITY HOUSEKEEPER, 2 mg at 11/04/24 0757 [Provider Held] heparin (porcine) 5000 unit/mL injection 5,000 Units, 5,000 Units, Subcutaneous, Q8H JUDSON, Corbin Adonis, HOSPITALITY HOUSEKEEPER, 5,000 Units at 11/16/24 1714 HYDROmorphone (DILAUDID) tablet 2 mg, 2 mg, Oral, Q3H PRN, Corbindenise Lamb, HOSPITALITY HOUSEKEEPER, 2 mg at 540 HYDROmorphone (DILAUDID) tablet 4 mg, 4 mg, Oral, Q3H PRN, Corbin Lamb, HOSPITALITY HOUSEKEEPER, 4 mg at 213 insulin glargine (LANtus/SEMGLEE) 100 units/mL injection 10 Units, 10 Units, Subcutaneous, Daily, Corbin Lamb APRN insulin lispro (HumaLOG/ADMELOG) 100 units/mL injection 1-6 Units, 1-6 Units, Subcutaneous, TID with meals, Corbin Lamb HOSPITALITY HOUSEKEEPER, 1 Units at 11/17/24 1856 insulin lispro (HumaLOG/ADMELOG) 100 units/mL injection 3 Units, 3 Units, Subcutaneous, TID with meals, Corbin Lamb, HOSPITALITY HOUSEKEEPER, 3 Units at 11/17/24 1213 ipratropium-albuterol (DUONEB) 0.5-2.5 mg/3 mL nebulizer solution 3 mL, 3 mL, Nebulization, Q2H PRN, Corbin Lamb, HOSPITALITY HOUSEKEEPER, 3 mL at 11/07/24 1025 lactulose (ENULOSE) 10 gm/15 mL solution 20 g, 20 g, Oral, Q4H PRN, Corbin Lamb, HOSPITALITY HOUSEKEEPER melatonin tablet 3 mg, 3 mg, Oral, Nightly PRN, Corbin Adonis, HOSPITALITY HOUSEKEEPER, 3 mg at 11/16/24 2215 methocarbamol (ROBAXIN) tablet 1,000 mg, 1,000 mg, Oral, 4x Daily, Coribndenise Lamb, HOSPITALITY HOUSEKEEPER, 1,000 mgat 11/17/24 2126 metoPROLOL TARTRATE (LOPRESSOR) tablet 50 mg, 50 mg, Oral, BID, Corbindenise Lamb, HOSPITALITY HOUSEKEEPER, 50 mg at 11/17/24 2124 multivitamin with minerals tablet 1 tablet, 1 tablet, Oral, Daily, Corbin Lamb HOSPITALITY HOUSEKEEPER, 1 tabletat 11/17/24 0816 naloxone (NARCAN) 0.4 mg/mL injection 0.4 mg, 0.4 mg, Intravenous, Q5 Min PRN, Corbin Adonis, HOSPITALITY HOUSEKEEPER naloxone (NARCAN) 0.4 mg/mL injection 0.4 mg, 0.4 mg, Intravenous, Q5 Min PRN, Corbin Adonis, HOSPITALITY HOUSEKEEPER nicotine (NICODERM CQ) 21 MG/24HR patch 1 patch, 1 patch, Transdermal, Daily, Corbin Adonis, HOSPITALITY HOUSEKEEPER, 1 patch at 11/17/24 0816 ondansetron (ZOFRAN) injection 4 mg, 4 mg, Intravenous, Q6H PRN, Corbin Adonis, HOSPITALITY HOUSEKEEPER, 4 mg at 11/17/24 1639 PANTOprazole (PROTONIX) EC tablet 40 mg, 40 mg, Oral, Daily, Corbin Adonis, HOSPITALITY HOUSEKEEPER, 40 mg at 11/17/24 0815 polyethylene glycol (miraLAx) packet 17 g, 17 g, Oral, Daily, Corbin Adonis, HOSPITALITY HOUSEKEEPER, 17 g at 11/17/24 1212 [Provider Held] pravastatin (PRAVACHOL) tablet 20 mg, 20 mg, Oral, Daily, Corbin Adonis, HOSPITALITY HOUSEKEEPER pregabalin (LYRICA) capsule 100 mg, 100 mg, Oral, TID, Corbin Adonis, HOSPITALITY HOUSEKEEPER, 100 mg at 11/17/24 2124 senna-docusate (SENNA-S) 8.6-50 MG tablet 2 tablet, 2 tablet, Oral, BID, Corbin Adonis, HOSPITALITY HOUSEKEEPER, 2 tablet at 11/17/245 thiamine mononitrate (VITAMIN B-1) tablet 200 mg, 200 mg, Oral, Daily, Corbin Adonis, HOSPITALITY HOUSEKEEPER, 200 mg at 11/17/24 0814 Vitals: 11/18/24 [...] (218 lb 11.1 oz) Height: Cristina Rodriguez, HOSPITALITY HOUSEKEEPER 11/18/24 9:18 AM Addendum: From an EP perspective, he can re-start his Eliquis today. Cristina Rodriguez, HOSPITALITY HOUSEKEEPER 11/18/24 9:19 AM * Sri Pena RN - 11/18/2024 8:25 AM EST Attached media from the original note were not included. Pacemaker evaluation completed on B10E, device interrogation ordered for post- OP. Presenting rhythm: AM-HYDRAULIC CONTROLS TECHNICIAN @ 69 bpm. Underlying rhythm: No ventricular response greater than 40 bpm. AM-HYDRAULIC CONTROLS TECHNICIAN @ 84.8%. Battery and device parameters evaluated [...] level of independence with self-care tasks. Current [facility] Daily Activity Score: 16 Precautions/Restrictions: fall, aspiration, pacemaker, isolation: contact, weight bearing (NWBing to L residual limb with historical records administrator and nutmeggar in place, skin) Rehab Plan [...] bearing (NWBing to L residual limb with historical records administrator and nutmeggar in place, skin) Pain Assessment [...] Progressive Mobility Level Achieved Edge of Bed [facility] Daily Activity Putting on and taking off Lower Body Clothing? 3 Bathing (including washing/rinsing/drying)? 2 Toileting (includes using toilet, bedpan, or urinal)? 2 Putting on and taking off upper body clothing? 3 Taking care of personal grooming such as brushing teeth? 3 Eating meals? 3 [facility] Daily Activity Score 16 Therapy Assessment/Plan [...] OT) goal ongoing Bathing Goal 1 (OT) [place] Level/Cues Needed (Bathing Goal 1, OT) minimum [...] Frame (Dressing Goal 1, OT) 1 week [place]/Cues Needed (Dressing Goal 1, OT) minimum assist (75% or more patient effort) Toileting Goal 1 (OT) Activity/Device (Toileting Goal 1, OT) toileting skills, all Progress/Outcome (Toileting Goal 1, OT) goal revised this date Time Frame (Toileting Goal 1, OT) 1 week [place] Level/Cues Needed (Toileting Goal 1, OT) minimum assist (75% or more patient effort) Sign: Katy Rodgers OT * Valencia Lau, HOSPITALITY HOUSEKEEPER - 11/17/2024 10:51 AM EST Images from the original note were not included. EM[facility] K[facility]MAN CARDIOLOGY PROGRESS NOTE Outpatient Mental Health Counselor: [facility] Assessment & Plan Assessment 63 year old male with hypertension, hyperlipidemia, diabetes, CKD stage III, peripheral artery disease, diabetes, foot infection with osteomyelitis, complete heart block s/p dual chamber pacemaker [id number], atrial fibrillation s/p multiple ablations and cardioversions [...] Bumex 1 mg daily today -BNP downtrending [phone] -Closely monitor renal function and electrolytes with [...] -Pacer interrogation 11/11/24: Presenting rhythm: AP / HYDRAULIC CONTROLS TECHNICIAN @ 60 bpm. Underlying rhythm: SB @ [...] PO, Daily Given, 2,500 mcg at 11/17 08 DAPTOmycin (CUBICIN) 975 mg in sodium chloride (NS) 0.9 % 50 mL IVPB 10 mg/kg, IV, Q24H Stopped, 11/16 171 donepezil (ARICEPT) tablet 10 mg 10 mg, PO, QAM Given, 10 mg at 11/17 0816 [Provider Held] empagliflozin (JARDIANCE) 25 mg On hold since [facility] 11/04/2024 at 1503 until manually unheld; [...] by 8 bpm Confirmed by MD Claude, [facility] ([id number]) on 11/07/2024 6:25:53 PM TATIANNA [...] Compared to previous outside study report from [facility] on 08/05/2024, Mitral and tricuspid regurgitation were not previously reported. Recommend transesophageal echocardiogram if clinically indicated. Brain MRI 11/12/2024 No acute intracranial findings or suspicious intracranial lesions. No septic emboli. All additional appropriate imaging studies within the past 24 hours reviewed - images reviewed and independently interpreted. Sign Valencia Lau APRN [facility] [place] 11/17/2024 10:51 AM Associated attestation - Devon [...] Powers MD - 11/17/2024 10:06 AM EST [facility] [...] Musculoskeletal: Right lower leg: No edema. Comments: ANJANAE NE Skin: General: Skin is warm and dry. [...] for PT follow up. L residual limb historical records administrator and nutmegger donned. Performed bed mobility and [...] level of independence with functional mobility. Current [facility] Basic Mobility Score: 16 Rehab Plan [...] Progressive Mobility Level Achieved Transferring to Chair [facility] Basic Mobility Turning from your back [...] Climbing 3-5 steps with a railing? 1 [facility] Basic Mobility Score 16 Therapy Assessment/Plan [...] Minutes Intravenous Every 24 hours 11/03/24 0849 Robert Mtz MD, FACP, CWSP [facility] Infectious Diseases Available via [employer] SUBJECTIVE Afebrile. No new complaints Feels better. [...] not compromised. This report was generated using [employer] dictation software. Although every attempt has [...] values in this interval not displayed. Sign Maddisno Villalpando MD 11/16/2024 2:35 PM * Chris Taylor MD - 11/16/2024 11:26 AM EST Images from the original note were not included. [facility] Bl[facility] [...] intermittent twitching Communicated with the hospitalist Dr. tMz will resume patient's care on Friday ANTIBIOTIC [...] Soft, nontender Extremities: Left BKA stump with historical records administrator garment, and ampul sheIld LABORATORY AND DIAGNOSTIC [...] was performed in office at [facility] and images reviewed by orthopedic provider. Any findings are documented within ambulatory encounter note on date of service. Current Medications: Current Facility-Administered Medications Medication Dose Route Frequency Provider Last Rate Last Admin acetaminophen (TYLENOL) tablet 975 mg 975 mg Oral Q6H [facility] Luis Degroot MD 975 mg at 11/16/24 [...] 10 mcg Intravenous Q5 Min PRN Hong Nanec MD Or fentaNYL (SUBLIMAZE) 100 mcg/2 mL [...] Daily Luis Degroot MD 200 mg at 11/16/2446 ALLERGIES: Allergies Allergen Reactions Lisinopril Other (See [...] not compromised This report was generated using [employer] dictation software. Although every attempt has been made by the provider to proofread this document, occasional misspellings and typographical errors Sign Chris Taylor MD, [facility], [facility] Infectious Diseases Available via Reissued 11/16/2024 11:27 AM * Maddison Villalpando MD [...] 65 [phone] 73 Resp: 18 18 Temp: 97.9 ??F (36.6 ??C) [...] faecium -10/27: Left foot wound culture at [place]: MRSA, Enterococcus faecalis, VRE, Corynebacterium species and [...] was performed in office at [facility] and images reviewed by orthopedic provider. [...] JUDSON Luis Degroot MD 5,000 Units at 11/15/24 [...] Daily Luis Degroot MD 1,000 mg at [id number] metoPROLOL TARTRATE (LOPRESSOR) tablet 50 mg 50 mg Oral BID Luis Degroot MD 50 mg at 11/15/24 0850 mineral oil (FLEET OIL) enema 1 enema 1 enema Rectal Daily PRN Luis Degroot MD multivitamin with minerals tablet 1 tablet 1 tablet Oral Daily Luis Degroot MD 1 tablet at 11/15/24 0851 naloxone (NARCAN) 0.4 mg/mL injection 0.4 mg [...] not compromised This report was generated using [employer] dictation software. Although every attempt has been made by the provider to proofread this document, occasional misspellings and typographical errors Sign Chris Taylor MD, [facility], [facility] Infectious Diseases Available via Reissued 11/15/2024 1:10 PM * Devon Lazo MD - 11/15/2024 1:00 PM EST Images from the original note were not included. EM[facility] K[facility] CARDIOLOGY PROGRESS NOTE Outpatient Mental Health Counselor: Assessment & Plan Assessment 63 year old male with hypertension, hyperlipidemia, diabetes, CKD stage III, peripheral artery disease, diabetes, foot infection with osteomyelitis, complete heart block s/p dual chamber pacemaker [id number], atrial fibrillation s/p multiple ablations and cardioversions [...] at 0752 until manually unheld; held by Gayle Chan Reason: NPO On hold since Fri11/10/2024 at [...] PO, Daily Given, 200 mg at 11/15 846 PRN Medication Ordered Dose/Rate, Route, Frequency Last [...] Q3H PRN Given, 2 mg at 11/11 1008 HYDROmorphone (DILAUDID) tablet 4 mg 4 mg, [...] Nightly PRN Given, 3 mg at 11/13 2152 mineral oil (FLEET OIL) enema 1 enema [...] by 8 bpm Confirmed by MD Claude, [facility] ([id number]) on 11/07/2024 6:25:53 PM All additional appropriate imaging studies within the past 24 hours reviewed - images reviewed and independently interpreted. Sign Devon Lazo MD [facility] [place] 11/15/2024 1:00 PM * Elida Ab OT [...] Patient is highly motivated to return to [facility] and reports good family support and [...] level of independence with self-care tasks. Current [facility] Daily Activity Score: 17 Precautions/Restrictions: fall, [...] Progressive Mobility Level Achieved Transferring to Chair [facility] Daily Activity Putting on and taking off Lower Body Clothing? 3 Bathing (including washing/rinsing/drying)? 2 Toileting (includes using toilet, bedpan, or urinal)? 2 Putting on and taking off upper body clothing? 3 Taking care of personal grooming such as brushing teeth? 3 Eating meals? 4 [facility] Daily Activity Score 17 Therapy Assessment/Plan [...] Villalpando MD - 11/13/2024 3:26 PM EST [facility] [...] from the original note were not included. [facility] Progress Note Date of admission:11/02/2024 Today's date: 11/13/2024 Primary Mental Health Counselor: [facility] Assessment & Plan 63 year old male with hypertension, hyperlipidemia, diabetes, CKD stage III, peripheral artery disease, diabetes, foot infection with osteomyelitis, complete heart block s/p dual chamber pacemaker [id number], atrial fibrillation s/p multiple ablations and cardioversions [...] -Pacer interrogation 11/11/24: Presenting rhythm: AP / HYDRAULIC CONTROLS TECHNICIAN @ 60 bpm. Underlying rhythm: SB @ [...] pain, dizziness, palpitations, syncope Objective: Telemetry Reviewed: HYDRAULIC CONTROLS TECHNICIAN 60 Last Vitals Pulse:63,Resp:18,BP:116/60,SpO2:96 %,Weight:120 kg (264 [...] Compared to previous outside study report from [facility] on 08/05/2024, Mitral and tricuspid [...] final timing Time spent on chart/literature review, [id number] discussion and exam with patient, and documentation: 50 minutes Subjective States that he feels okay. Denies any fevers, chills, nausea, vomiting. Reports some mild shortness of breath. Pain in his left leg well-controlled. [...] Resolved Problems: Noemí Danielle MD Available on [email or web address] 11/12/2024 3:33 PM * POOJA Allen - 11/12/2024 11:59 AM EST Images from the original note were not included. [facility] Inpatient Progress Note Date of admission:11/02/2024 Today's date: 11/12/2024 Primary Mental Health Counselor: [facility] Assessment & Plan 63 year old male with hypertension, hyperlipidemia, diabetes, CKD stage III, peripheral artery disease, diabetes, foot infection with osteomyelitis, complete heart block s/p dual chamber pacemaker [id number], atrial fibrillation s/p multiple ablations and cardioversions [...] Pacer eval 11/11/24: Presenting rhythm: AP / HYDRAULIC CONTROLS TECHNICIAN @ 60 bpm. Underlying rhythm: SB @ [...] No lightheadedness or dizziness. Objective: Telemetry Reviewed: HYDRAULIC CONTROLS TECHNICIAN 60 Last Vitals Pulse:67,Resp:18,BP:(!) 113/53,SpO2:(!) 91 %,Weight:120 [...] empagliflozin (JARDIANCE) 25 mg On hold since [facility] 11/04/2024 at 1503 until manually unheld; [...] at 0752 until manually unheld; held by Anni Rodham, PA-CHold Reason: NPO On hold since Fri11/10/2024 at [...] Daily Patch Applied, 1 patch at 11/12 09 PANTOprazole (PROTONIX) EC tablet 40 mg [...] Compared to previous outside study report from [facility] on 08/05/2024, Mitral and tricuspid [...] Patient is highly motivated to return to [facility] and reports good family support and [...] level of independence with self-care tasks. Current [facility] Daily Activity Score: 16 Precautions/Restrictions: fall, [...] Progressive Mobility Level Achieved Transferring to Chair [facility] Daily Activity Putting on and taking off Lower Body Clothing? 2 Bathing (including washing/rinsing/drying)? 2 Toileting (includes using toilet, bedpan, or urinal)? 2 Putting on and taking off upper body clothing? 3 Taking care of personal grooming such as brushing teeth? 3 Eating meals? 4 [facility] Daily Activity Score 16 Therapy Assessment/Plan [...] ordered for function. Presenting rhythm: AP / HYDRAULIC CONTROLS TECHNICIAN @ 60 bpm. Underlying rhythm: SB @ [...] of 40-44% and patent foramina well with [id number] shunting and moderate to severe TR MRI [...] validated and emotional support provided; nurse manager financial made aware. Resources: Patient informed of the following resources and how to request it: Integrative Medicine Services available at [facility], including, Massage Therapy, and Reiki/Energy Therapy [...] faecium -10/27: Left foot wound culture at [place]: MRSA, Enterococcus faecalis, VRE, Corynebacterium species and [...] nontender Left BKA stump site covered in historical records administrator garment and ampu sheild LABORATORY AND DIAGNOSTIC [...] displayed. Lab Results Component Value Date ALT 11/11/2024 AST 24 11/11/2024 ALKPHOS 207 (H) [...] was performed in office at [facility] and images reviewed by orthopedic provider. [...] Tube Oral Q15 Min PRN Kayla Orona, HOSPITALITY HOUSEKEEPER Or glucose (GLUTOSE 15) 40 % oral gel 75 g 2 Tube Oral Q15 Min PRN Kayla Orona, HOSPITALITY HOUSEKEEPER Or dextrose 50 % solution 12.5 g 12.5 g Intravenous Q15 Min PRN Kayla Orona, HOSPITALITY HOUSEKEEPER Or dextrose 50 % solution 25 g 25 g Intravenous Q15 Min PRN Kayla Orona, HOSPITALITY HOUSEKEEPER Or glucagon (GLUCAGEN) injection 1 mg 1 [...] injection 5,000 Units 5,000 Units Subcutaneous Q8H [facility] Haven Bach APRN 5,000 Units [...] 2AM Eunice Garrison APRN 1 Units at 11/10/248 insulin lispro (HumaLOG/ADMELOG) 100 units/mL injection 1-6 Units 1-6 Units Subcutaneous Q4H [facility] POOJA Crews [Provider Held] insulin [...] not compromised This report was generated using [employer] Speaking dictation software. Although every attempt has been made by the provider to proofread this document, occasional misspellings and typographical errors Sign Chris Taylor MD, FID, [facility] Infectious Diseases Available via Reissued 11/11/2024 10:52 AM * Olimpia Lainez, PharmD [...] 4 mg q3h PRN for severe pain ([id number]). 1x dose of liquid dilaudid 1mg given [...] Compared to previous outside study report from [facility] on 08/05/2024, Mitral and tricuspid [...] Pulmonary, Critical Care, and Sleep Medicine [address], [address], [place] [address] Critical Care Progress Note Assessment & Plan [...] Compared to previous outside study report from [facility] on 08/05/2024, Mitral and tricuspid [...] Output: I/O last 3 completed shifts: In: 1879 [P.O.:1200; I.V.:280; IV Piggyback:400] Out: 9925 [Urine:9925] Intake/Output Summary (Last 24 hours) at 11/11/2024 0736 Last data filed at 11/11/2024 0600 Gross per 24 hour Intake 1296 ml Output 8575 ml Net -7279 ml Procedures: Surgical/Procedural Cases on this Admission Case IDs Date Procedure Surgeon Location Status [id number] 11/05/24 LEFT BELOW KNEE AMPUTATION Dallas Camejo [...] Daily with breakfast Given, 500 mg at 11/046 methocarbamol (ROBAXIN) tablet 1,000 mg 1,000 mg, [...] Continuous Rate/Dose Verify, 1 mg/hr at 11/11 06 PRN Medication Ordered Dose/Rate, Route, Frequency Last [...] ruled out. This report was generated using [employer] dictation software. Although every attempt has been [...] out/in endocarditis Plan -NWB, ampushield and stump historical records administrator -Currently on ASA BID and subcutaneous heparin- [...] redressed with xeroform, abds and applied the historical records administrator garment and ampu shield. Labs: Recent Labs [...] ,11/07,blood cultures = NGTD -11/04 (2/) bld cx: G+ cocci in clusters -11/02(/) blood cultures: MRSA, Enterococcus faecalis, Enterococcus faecium -10/27: Left foot wound culture at [place]: MRSA, Enterococcus faecalis, VRE, Corynebacterium species and [...] was performed in office at [facility] and images reviewed by orthopedic provider. [...] injection 5,000 Units 5,000 Units Subcutaneous Q8H [facility] Haven Bach APRN 5,000 Units [...] Daily Rafiq Chakraborty MD 1,000 mg at 0 metoPROLOL TARTRATE [...] Daily Rafiq Chakraborty MD 1 patch at 11/10/2419 ondansetron (ZOFRAN) injection 4 mg 4 mg [...] Rafiq Chakraborty MD 2 tablet at 11/10/24 09 sodium chloride (NS) 0.9 % infusion - [...] not compromised This report was generated using [employer] Speaking dictation software. Although every attempt has been made by the provider to proofread this document, occasional misspellings and typographical errors Sign Chris Taylor MD, [facility], [facility] Infectious Diseases Available via Reissued 11/10/2024 11:34 AM * POOJA Jimenez - 11/10/2024 10:45 AM EST Images from the original note were not included. [facility] Inpatient Progress Note Date of admission:11/02/2024 Today's date: 11/10/2024 Primary Mental Health Counselor: [facility] Assessment & Plan 63 year old male with hypertension, hyperlipidemia, diabetes, CKD stage III, peripheral artery disease, diabetes, foot infection with osteomyelitis, complete heart block s/p dual chamber pacemaker [id number], atrial fibrillation s/p multiple ablations and cardioversions [...] abdomen much less distended Objective: Telemetry Reviewed: HYDRAULIC CONTROLS TECHNICIAN 60 Last Vitals Pulse:60,Resp:17,BP:130/60,SpO2:94 %,Weight:120 kg (264 [...] todayat 075 until manually unheld; held by Ry Mas Reason: NPO On hold since today at [...] Compared to previous outside study report from [facility] on 08/05/2024, Mitral and tricuspid [...] Compared to previous outside study report from [facility] on 08/05/2024, Mitral and tricuspid [...] of Pulmonary, Critical Care, and Sleep Medicine [address] [place] [address], [address], [place] [address] Critical Care Progress Note Assessment & Plan [...] Compared to previous outside study report from [facility] on 08/05/2024, Mitral and tricuspid [...] Case IDs Date Procedure Surgeon Location Status [id number] 11/05/24 LEFT BELOW KNEE AMPUTATION Dallas Camejo [...] empagliflozin (JARDIANCE) 25 mg On hold since [facility] 11/04/2024 at 1503 until manually unheld; [...] (AMARYL) tablet 2 mg On hold since [facility] 11/04/2024 at 1503 until manually unheld; [...] concerns as highlighted below if appropriate. CXR 2/9 preliminary read: IMPRESSION: Worsening bilateral upper lung field airspace opacities and bronchial wall thickening compared to prior. CXR 11/04: IMPRESSION: Bilateral reticulonodular opacities concerning for interstitial edema. Superimposed atypical infection cannot be ruled out. This report was generated using [employer] Speaking dictation software. Although every attempt has [...] faecium -10/27: Left foot wound culture at [place]: MRSA, Enterococcus faecalis, VRE, Corynebacterium species and [...] Soft nontender Left BKA stump site in historical records administrator LABORATORY AND DIAGNOSTIC DATA: Lab and imaging [...] was performed in office at [facility] and images reviewed by orthopedic provider. [...] central line CHG application Topical Daily Darrell aCrcamo PA-C 1 each at 11/09/24 0925 cholecalciferol [...] g 1 Tube Oral Q15 Min PRN Kaylarakesh Orona HOSPITALITY HOUSEKEEPER Or glucose (GLUTOSE 15) 40 % oral gel 75 g 2 Tube Oral Q15 Min PRN Kayla Orona, HOSPITALITY HOUSEKEEPER Or dextrose 50 % solution 12.5 g 12.5 g Intravenous Q15 Min PRN Kayla Orona, HOSPITALITY HOUSEKEEPER Or dextrose 50 % solution 25 g 25 g Intravenous Q15 Min PRN Kayal Yeyo HOSPITALITY HOUSEKEEPER Or glucagon (GLUCAGEN) injection 1 mg 1 [...] Units Subcutaneous Q8H JUDSON Haven Bach APRN HYDROmorphone (DILAUDID) tablet 2 [...] breakfast Rafiq Chakraborty MD 500 mg at 11/04/246 methocarbamol (ROBAXIN) tablet 1,000 mg 1,000 mg [...] Daily Rafiq Chakraborty MD 200 mg at 11/09/24911 ALLERGIES: Allergies Allergen Reactions Lisinopril Other (See [...] not compromised This report was generated using [employer] Speaking dictation software. Although every attempt has been made by the provider to proofread this document, occasional misspellings and typographical errors Sign Chris Taylor MD, [facility], [facility] Infectious Diseases Available via Reissued 11/09/2024 11:55 AM * Deep Bales PharmD [...] pregabalin. - Pharmacy will continue to monitor Fany MillerD * Juany Ospina RN - 11/09/2024 9:30 AM ESTSummary: Nurse Navigator Note Ortho Trauma Nurse Navigator Rounding Note Attempted to meet with patient, however, patient was sleeping soundly. Patient has been previously provided with nurse navigator's direct contact information to contact with any questions or concerns. Will attempt to visit with patient again tomorrow. * Gema JaneSHUBHAM - 11/09/2024 9:00 AM EST Images from the original note were not included. [facility] PROGRESS NOTE Outpatient Mental Health Counselor: Mental Health Counselor at [facility] in [place] Assessment & Plan Assessment Blas Genao is [...] by 8 bpm Confirmed by MD Claude, [facility] ([id number]) on 11/07/2024 6:25:53 PM ECHO: [...] Compared to previous outside study report from [facility] on 08/05/2024, Mitral and tricuspid regurgitation were not previously reported. Recommend transesophageal echocardiogram if clinically indicated. All additional appropriate imaging studies within the past 24 hours reviewed - images reviewed and independently interpreted. Sign Gema Jane APRN [facility] Heart & Vascular [place] 11/09/2024 9:00 AM * Roberto Carranza PTA - 11/09/2024 8:40 AM EST Physical Therapy Progress Note Precautions/Restrictions: fall, isolation: contact, pacemaker, other (see comments) (NWB LLE; Skin) Assessment Summary: Patient seen for PT follow up. Performed bed mobility, transfers and sidesteps this session. Required Ax2 for mobility. Adjusted nutmegger for optimal fit and protection of residual limb. Per orders patient is to have historical records administrator on AAT, noted that residual limb was wrapped with srinivas wrap vs historical records administrator. Reached out to orthopedic PA in regards to historical records administrator for patient. Patient is motivated to participate [...] level of independence with functional mobility. Current [facility] Basic Mobility Score: 14 Rehab Plan [...] Progressive Mobility Progressive Mobility Level Achieved Standing [facility] Basic Mobility Turning from your back [...] Climbing 3-5 steps with a railing? 1 [facility] Basic Mobility Score 14 Therapy Assessment/Plan [...] PT) goal ongoing Sign: Roberto Carranza PTA Associated attestation - Abhinav Pope, PT - [...] level of independence with self-care tasks. Current [facility] Daily Activity Score: 15 Precautions/Restrictions: fall, [...] Progressive Mobility Level Achieved Edge of Bed [facility] Daily Activity Putting on and taking off Lower Body Clothing? 2 Bathing (including washing/rinsing/drying)? 2 Toileting (includes using toilet, bedpan, or urinal)? 1 Putting on and taking off upper body clothing? 3 Taking care of personal grooming such as brushing teeth? 3 Eating meals? 4 [facility] Daily Activity Score 15 Therapy Assessment/Plan [...] OT goal 1 Transfer Goal 1 (OT) [place] Level/Cues Needed (Transfer Goal 1, OT) minimum [...] POOJA Akers 11/09/2024 8:14 AM * Shay Maritn MD - 11/09/2024 7:53 AM EST Images from the original note were not included. Division of Pulmonary, Critical Care, and Sleep Medicine [address], [address], [place] [address] Critical Care Progress Note Assessment & Plan [...] supplementation for goal sats >92% Follow-up ABG 7. Continue diuresis DuoNeb as needed Slight worsening [...] Compared to previous outside study report from [facility] on 08/05/2024, Mitral and tricuspid [...] the unit or at the nursing station [facility] where the patient is located. My full [...] Case IDs Date Procedure Surgeon Location Status [id number] 11/05/24 LEFT BELOW KNEE AMPUTATION Dallas Camejo [...] empagliflozin (JARDIANCE) 25 mg On hold since [facility] 11/04/2024 at 1503 until manually unheld; [...] ruled out. This report was generated using [employer] dictation software. Although every attempt has been [...] (2/2) bld cx: G+ cocci in clusters -11/02(2) blood cultures: MRSA, Enterococcus faecalis, Enterococcus faecium -10/27: Left foot wound culture at [place]: MRSA, Enterococcus faecalis, VRE, Corynebacterium species and [...] nontender Extremities: Left BKA site-> No drain. Private Branch Exchange Installer in place LABORATORY AND DIAGNOSTIC DATA: Lab [...] was performed in office at [facility] and images reviewed by orthopedic provider. [...] Rafiq Chakraborty MD 200 mg at 11/08/24 0903 amLODIPine (NORVASC) tablet 10 mg 10 mg Oral Daily Rafiq Chakraborty MD 10 mg at 11/08/24 0905 aspirin enteric coated (ECOTRIN LOW STRENGTH) tablet [...] Daily Rafiq Chakraborty MD 1 mg at 11/08/24904 [Provider Held] glimepiride (AMARYL) tablet 2 mg [...] Rafiq Chakraborty MD 1 patch at 11/08/24 0901 ondansetron (ZOFRAN) injection 4 mg 4 mg [...] not compromised This report was generated using [employer] dictation software. Although every attempt has been made by the provider to proofread this document, occasional misspellings and typographical errors Sign Chris Taylor MD, [facility], [facility] Infectious Diseases Available via Reissued 11/08/2024 10:02 AM * Dallas Camejo MD - 11/08/2024 9:46 AM EST Blas's clinical progress and CP decompensation noted. Appreciate Medical management and CT recommendations. Drain out, wound clean, and Private Branch Exchange Installer in place. Will continue to follow. * Gema Dumont SHUBHAM Jane - 11/08/2024 9:38 AM EST Images from the original note were not included. [facility] CARDIOLOGY PROGRESS NOTE Outpatient Mental Health Counselor: Mental Health Counselor at [facility] in [place] Assessment & Plan Assessment Blas Genao is [...] by 8 bpm Confirmed by MD Claude, [facility] ([id number]) on 11/07/2024 6:25:53 PM ECHO: [...] Compared to previous outside study report from [facility] on 08/05/2024, Mitral and tricuspid regurgitation were not previously reported. Recommend transesophageal echocardiogram if clinically indicated. All additional appropriate imaging studies within the past 24 hours reviewed - images reviewed and independently interpreted. Robert Jane APRN [facility] Heart [facility] Vascular [place] 11/08/2024 9:38 AM * Shay Martin MD - 11/08/2024 7:40 AM EST Images from the original note were not included. Division of Pulmonary, Critical Care, and Sleep Medicine [address], [address], [place] [address] Critical Care Progress Note Assessment & Plan [...] Compared to previous outside study report from [facility] on 08/05/2024, Mitral and tricuspid [...] the unit or at the nursing station [facility] floor where the patient is located. [...] Case IDs Date Procedure Surgeon Location Status [id number] 11/05/24 LEFT BELOW KNEE AMPUTATION Dallas Camejo MD [facility] OR Comp Medications: Medication/MAR Report: Medications Scheduled Medication Ordered Dose/Rate, Route, Frequency Last Action acetaminophen (TYLENOL) tablet 975 mg 975 mg, PO, Q6H JUDSON Given, 975 mg at 11/085 amiODARONE (PACERONE) tablet 200 mg 200 mg, [...] PO, BID Given, 150 mg at 11/07 2043 calcium citrate (CALCITRATE) tablet 950 mg 950 mg, PO, BID with meals Given, 950 mg at 11/07 165 ceftaroline (TEFLARO) 600 mg in sodium chloride (NS) 0.9 % 250 mL IVPB-WTD 600 mg, IV, Q8H Given, 600 mg at 11/08 0324 cholecalciferol tablet 2,000 Units 2,000 Units, PO, Daily Given, 2,000 Units at 11/07 0714 cyanocobalamin (VITAMIN B-12) tablet 2,500 mcg 2,500 mcg, PO, Daily Given, 2,500 mcg at 11/07 0715 DAPTOmycin (CUBICIN) 975 mg in sodium chloride (NS) 0.9 % 50 mL IVPB 10 mg/kg, IV, Q24H Stopped, 11/07 1800 donepezil (ARICEPT) tablet 10 mg 10 mg, PO, QAM Given, 10 mg at 11/07 0716 [Provider Held] empagliflozin (JARDIANCE) 25 mg On hold since [facility] 11/04/2024 at 1503 until manually unheld; [...] reviewed: Hemoglobin, Hematocrit and Platelets Recent Labs 11/06/2445711/07/24 0813 11/08/24 0005 HGB 8.7* 8.9* 7.9* HCT 27.9* 28.9* 25.6* PLT 346 430 378 Electrolytes and Lactate Recent Labs 11/06/2445711/07/24 0813 11/07/24 1236 11/07/24 1612 11/08/24 0005 NA 131* 129* -- 131* 133* K 3.8 3.9 -- 3.7 3.8 CL 99 94* -- 98 98 CO2 20* 22 22 21* 21* ANIONGAP 12 13 -- 12 14 BUN 48* 47* -- 47* 48* CREAT 1.7* 1.5* -- 1.6* 1.6* Hepatic Testing Recent Labs 11/06/2445711/07/24 0813 11/08/24 0005 AST 50 28 24 [...] ruled out. This report was generated using [employer] dictation software. Although every attempt has been [...] left lower extremity, continue LLE nutmegger and historical records administrator. - skin checks to LLE bid - [...] CPAP 15L, sats drop when removed LLE: nutmegger/historical records administrator in place. Thigh soft Labs: Recent Labs [...] 11/05 -10/27: Left foot wound culture at [place]: MRSA, Enterococcus faecalis, VRE, Corynebacterium species and [...] -Ceftaroline, 11/05 Plan: Patient was upgraded to [place] 11 stepdown secondary to increased oxygen [...] was performed in office at [facility] and images reviewed by orthopedic provider. [...] tablet 975 mg 975 mg Oral Q6H [facility] POOJA De Souza 975 mg at 11/07/24 0814 amiODARONE (PACERONE) tablet 200 mg 200 mg Oral BID POOJA De Souza 200 mg at 11/07/24 0817 amLODIPine (NORVASC) tablet 10 mg 10 mg Oral Daily POOJA De Souza 10 mg at 11/07/24 0817 aspirin enteric coated (ECOTRIN LOW STRENGTH) tablet 81 mg 81 mg Oral Q12H [facility] POOJA De Souza81 mg at [...] TID Dallas Rivers PA-C 150 mg at senna (SENOKOT) tablet 2 tablet 2 tablet Oral Nightly POOJA De Souza 2 tablet at 11/06/24 210 senna-docusate (SENNA-S) 8.6-50 MG tablet 2 tablet 2 tablet Oral BID POOJA De Souza 2 tabletat 11/07/24 0818 sodium chloride (NS) 0.9 % [...] not compromised This report was generated using [employer] Speaking dictation software. Although every attempt has been made by the provider to proofread this document, occasional misspellings and typographical errors Sign Chris Taylor MD, [facility], [facility] Infectious Diseases Available via Reissued 11/07/2024 11:30 AM * Lei Diaz MD [...] History: Diagnosis Date A-fib ([facility]) Acute osteomyelitis (HCC) Atrial flutter (HCC) Cardiac pacemaker 2016 Carotid atherosclerosis Charcot's joint of right foot 2015 Chronic sciatica Complete AV block (HCC) Diabetes mellitus ([facility]) TYPE II Diabetic foot [...] VAC; Surgeon: Dallas Camejo MD; Location: [facility]; Service: Orthopaedics; Laterality: Left; FOOT SURGERY Right x5 INCISION AND DRAINAGE FOOT Left [place] PROCEDURE MAZE AFIB OSTECTOMY CALCANEOUS Left 09/10/2024 Procedure: ANKLE PARTIAL CALCANECTOMY; Surgeon: Dallas Camejo MD; Location: [facility]; Service: Orthopaedics; Laterality: Left; wOUND [...] Continuous Glucose Sensor (FreeStyle Wallace 3 Sensor) [facility] INJECT 1 DEVICE INTO THE SKIN EVERY [...] mg, PO, Daily Given, 25 mg at 02/06 0756 folic acid (FOLVITE) tablet 1 mg [...] Recent Labs 11/04/24 1119 11/05/24 0712 11/06/24 04511/07/24 0813 HCT 28.0* 28.3* 27.9* 28.9* HGB [...] thickening compared to prior. Interpreted by: Roberto oTlbert MD Rag Collector Sign: Lei Diaz MD 11/07/2024 11:05 AM [...] appropriate. Sign: Laura Blanco PT * Marlin Martinez, OT - 11/07/2024 [...] HOSPITAL MEDICINE PROGRESS NOTE Assessment Mr. Blas Genoa is a 63 y.o. year old male [...] Diet Diabetic/ Calorie Controlled; Carb Counting 60g/meal 7847-1152 kcal DVT Px: SCDs - RIGHT (Knee High) Status: Full Code Consults placed: Procedures Inpatient consult to Internal Medicine Inpatient consult to Infectious Diseases (Specify provider ) Inpatient consult to Social Work Inpatient consult to Anesthesiology Inpatient consult to cardiology ([facility]) Inpatient consult to cardiac surgery Inpatient consult to Cardiology ( [facility] ) Social Work Consult Barriers for [...] Case IDs Date Procedure Surgeon Location Status [id number] 11/05/24 LEFT BELOW KNEE AMPUTATION Dallas Camejo MD [facility] OR Comp Plan WB Status: NWB left lower extremity. Process Inspector stump historical records administrator in place. Appreciate PT and OT recommendations. [...] oriented. LE: Dressing clean, dry, and intact. Process Inspector stump historical records administrator in place. Labs: Recent Labs 11/05/24 0712 [...] level of independence with functional mobility. Baseline [facility] Basic Mobility Score: 24 Current [facility] Basic Mobility Score: 16 Objective Data [...] EXTREMITY ANGIOGRAM; Surgeon: Delbert Mcintosh MD; Location: [facility] OR; Service: Peripheral Vascular; Laterality: Left; BARIATRIC SURGERY 2018 CARDIAC ELECTROPHYSIOLOGY STUDY AND ABLATION x5 CARDIAC PACEMAKER PLACEMENT 2016 CARDIAC SURGERY 2020 watchman device CARDIOVERSION 07/2024 CC PERIPHERAL ANGIOGRAPHY Left 07/2024 LE CHANGE DRESSING WOUND VAC Left 09/10/2024 Procedure: APPLICATION OF WOUND VAC; Surgeon: Dalals Camejo MD; Location: [facility] OR; Service: Orthopaedics; Laterality: Left; FOOT SURGERY Right x5 INCISION AND DRAINAGE FOOT Left [place] PROCEDURE MAZE AFIB OSTECTOMY CALCANEOUS Left 09/10/2024 Procedure: ANKLE PARTIAL CALCANECTOMY; Surgeon: Dallas Camejo MD; Location: [facility] OR; Service: Orthopaedics; Laterality: Left; wOUND [...] Progressive Mobility Level Achieved Transferring to Chair [facility] Basic Mobility Turning from your back [...] Climbing 3-5 steps with a railing? 1 [facility] Basic Mobility Score 16 Therapy Assessment/Plan [...] PT goal 1 Transfer Goal 1 (PT) [place] Level/Cues Needed (Transfer Goal 1, PT) supervision required Time Frame (Transfer Goal 1, PT) 1 week Activity/Assistive Device (Transfer Goal 1, PT) fmk-ic-[id number]/[id number]-zg-[id number];rxj-ke-gfxuu/wpuzk-ud-xcm;wheelchair transfer;walker, rolling Gait Training Goal 1 (PT) Time Frame (Gait Training Goal 1, PT) 1 week [place] Level (Gait Training Goal 1, PT) supervision required Activity/Assistive Device (Gait Training Goal 1, PT) gait (walking locomotion);assistive device use;maintain weight-bearing status;increase energy conservation;increase endurance/gait distance;walker, rolling Distance (Gait Training Goal 1, PT) 20 Wheelchair Locomotion Goal 1 (PT) [place] Level/Cues Needed (Wheelchair Locomotion Goal 1, PT) [...] amputation -10/27: Left foot wound culture at [place]: MRSA, Enterococcus faecalis, VRE, Corynebacterium species and [...] fibrillation s/p Watchman device implantation in 2017 5. AMS 6. Vision issues 7. TABITHA. [...] was performed in office at [facility] and images reviewed by orthopedic provider. [...] tablet 975 mg 975 mg Oral Q6H [facility] POOJA De Souza 975 mg at 11/05/24 0650 acetaminophen (TYLENOL) tablet 975 mg 975 mg Oral Q8H [facility] POOJA De Souza 975 mg at 11/06/24 0513 amiODARONE (PACERONE) tablet 200 mg 200 mg Oral BID POOJA De Souza 200 mg at 11/06/24 0909 amLODIPine (NORVASC) tablet 10 mg 10 mg Oral Daily POOJA De Souza 10 mg at 11/06/24 0908 aspirin enteric coated (ECOTRIN LOW STRENGTH) tablet 81 mg 81 mg Oral Q12H [facility] POOJA De Souza81 mg at [...] not compromised This report was generated using [employer] Speaking dictation software. Although every attempt has been made by the provider to proofread this document, occasional misspellings and typographical errors Sign Chris Taylor MD, [facility], [facility] Infectious Diseases Available via Reissued 11/06/2024 10:58 AM * Adama Prasad APRN [...] bumex PO 2mg daily). Continue telemetry Outpatient circuit judge: Lauren pedroza [place] Subjective/24 hour Events C/o significant pain. No [...] Continuous Glucose Sensor (FreeStyle Wallace 3 Sensor) [facility] INJECT 1 DEVICE INTO THE SKIN EVERY [...] (BUMEX) tablet 2 mg On hold since [facility] 11/04/2024 at 1503 until manually unheld; [...] Compared to previous outside study report from [facility] on 08/05/2024, Mitral and tricuspid [...] software and direct typing. Please excuse inadvertent template worker and typing errors. Sign Adama Prasad APRN [...] Case IDs Date Procedure Surgeon Location Status [id number] 11/05/24 LEFT BELOW KNEE AMPUTATION Dallas Camejo MD [facility] OR Comp Plan Multimodal pain management DVT Prophylaxis: ASA 81mg PO BID Weight Bearing Status: NWB PT/OOB HV in place scant output overnight, will discuss with Dr. Camejo Appreciate Medicine, ID and Cardiology recs: for medical comanagement []TATIANNA pending []Blood Cultures Currently on Dapto, Ceftaroline Process Inspector Stump historical records administrator ordered Subjective No complaints. No CP,SOB,N/V. Pain [...] without problems. Last drink day before admission CIME protocol ordered Diet: Diet Diabetic/ Calorie Controlled; Carb Counting 60g/meal 9962-9598 kcal DVT Px: SCDs - RIGHT (Knee High) Status: Full Code Consults placed: Procedures Inpatient consult to Internal Medicine Inpatient consult to Infectious Diseases (Specify provider ) Inpatient consult to Social Work Inpatient consult to Anesthesiology Inpatient consult to cardiology ([facility]) Inpatient consult to cardiac surgery Inpatient [...] Case IDs Date Procedure Surgeon Location Status [id number] 11/05/24 LEFT BELOW KNEE AMPUTATION Dallas Camejo MD [facility] WB status: NWB LLE Postop antibiotics: [...] from the original note were not included. [facility] CARDIOLOGY SERVICE CONSULT Date of Consult: 11/05/2024 Patient's Primary Care Physician: Lee Fabian MD Physician Requesting Consult: Orthopedic surgery Primary Mental Health Counselor: Mental Health Counselor at [facility] Reason for Consultation: Preop Admit Date: [...] doing TATIANNA first is not going to knife changer. Leg wounds are like the source [...] History: Diagnosis Date A-fib (HCC) Acute osteomyelitis ([facility]) Atrial flutter ([facility]) Cardiac [...] WOUND VAC; Surgeon: Dallas Camejo MD; Location: [facility] OR; Service: Orthopaedics; Laterality: Left; FOOT SURGERY Right x5 INCISION AND DRAINAGE FOOT Left OH PROCEDURE MAZE AFIB OSTECTOMY CALCANEOUS Left 09/10/2024 Procedure: ANKLE PARTIAL CALCANECTOMY; Surgeon: Dallas Camejo MD; Location: [facility]; Service: Orthopaedics; Laterality: Left; wOUND [...] Continuous Glucose Sensor (FreeStyle Wallace 3 Sensor) [facility] INJECT 1 DEVICE INTO THE SKIN EVERY [...] Kern, MDHold Reason: Pre-procedure On hold since yesterday [...] 9 bpm Confirmed by MD Danya, Deep ([id number]) on 11/03/2024 4:30:25 PM Echocardiogram (TTE) Comprehensive [...] Compared to previous outside study report from [facility] on 08/05/2024, Mitral and tricuspid regurgitation were not previously reported. Recommend transesophageal echocardiogram if clinically indicated. All additional appropriate imaging studies within the past 24 hours reviewed - images reviewed and independently interpreted. Sign: Nitish Tracy MD [facility] Heart & Vascular [place] 11/05/2024 2:43 PM * Hilda Alvarado RN [...] faecium 10/27: Left foot wound culture at [place]: MRSA, Enterococcus faecalis, VRE, Corynebacterium speciesand gram-negative [...] Start Dose/Rate Route Frequency Ordered Stop 11/03/24 09 DAPTOmycin (CUBICIN) 975 mg in sodium chloride (NS) 0.9 % 50 mL IVPB 10 mg/kg ?? 97.3 kg (Adjusted) 139 mL/hr over 30 Minutes Intravenous Every 24 hours 11/03/24 0849 11/03/24 0900 meropenem (MERREM) 500 mg in sodium chloride-MBP (NS) 100 mL IVPB-MBP 500 mg 33.3 mL/hr over 3 Hours Intravenous Every 6 hours 11/03/24 0851 Sign Ena Mtz MD, FACP, CWSP [facility] Infectious Diseases Available via [facility] SUBJECTIVE Tmax 102.3 ??F Fevers overnight [...] not compromised. This report was generated using [employer] Speaking dictation software. Although every attempt has [...] Plan NWB LLE ASA daily, lovenox yesterday, ivanna is on hold for OR Pt discussed [...] consult to Anesthesiology Inpatient consult to cardiology ([facility]) Barriers for discharge: IV antibiotics, fevers, [...] request it: Integrative Medicine Services available at [facility], including, Massage Therapy, and Reiki/Energy Therapy Social Work Spiritual Care Pharmacist Nutrition Patient declined resources at this time. Demographic Screening: Medical insurance - Medicare Collator involvement - No. Worker's compensation - No [...] staff will identify along with patient a manager personal to provide updates. Interventions Provided and reviewed [...] ostectomy. -10/27: Left foot wound culture at [place]: MRSA, Enterococcus faecalis, VRE, Corynebacterium species and [...] last 7 days Lab Units 11/04/24 0726 11/03/24212411/03/[id number]/02/[id number]/02/241999 SODIUM mmol/L -- -- -- -- 130* [...] was performed in office at [facility] and images reviewed by orthopedic provider. [...] Daily POOJA Arias 40 mg at 11/04/24 075 polyethylene glycol (miraLAx) packet 17 g 17 g Oral Daily PRN POOJA Arias [Provider Held] pravastatin (PRAVACHOL) tablet 20 mg 20 mg Oral Daily POOJA Arias pregabalin (LYRICA) capsule 150 mg 150 mg Oral BID POOJA Arias 150 mg at 11/04/24 0756 senna (SENOKOT) tablet 2 tablet 2 tablet Oral Nightly POOJA Arias 2 tablet at 11/03/24 8473 ALLERGIES: Allergies Allergen Reactions Lisinopril Other (See [...] not compromised This report was generated using [employer] Speaking dictation software. Although every attempt has been made by the provider to proofread this document, occasional misspellings and typographical errors Sign Chris Taylor MD, FID, [facility] Infectious Diseases Available via Reissued 11/04/2024 9:13 AM * Juaquin Kern MD [...] Diet Diabetic/ Calorie Controlled; Carb Counting 60g/meal 8009-9274 kcal Diet NPO; Meds DVT Px: SCDs - Bilateral (Knee High) Status: Full Code Consults placed: Procedures Inpatient consult to Internal Medicine Inpatient consult to Infectious Diseases (Specify provider ) Inpatient consult to Social Work Inpatient consult to Anesthesiology Inpatient consult to cardiology ([facility]) Barriers for discharge: IV antibiotics, fevers, [...] [x]OR booked: case request and [facility] OR commercial front load operator notified [x]Abx contact center assistant to OR (2g ancef) []Pre-Op Noes to [...] Home alone Current Living Arrangements home (1-level, [facility]) Primary Care Provided by self Provides [...] couch) Functional Status Functional Status Comments PT/OT cami post-op Financial Resource Strain Do you have [...] or living in a half-way (including now)? N Food Insecurity Within the [...] In the past 12 months has the xTV, oil, or water [employer] threatened to shut off services in your [...] days Current Outpatient/Agency/Support Group homecare agency ([facility] - SN 3 weekly (wound care) & BUSINESS SUPERVISOR x 2 weekly) Concerns to be Addressed home safety;discharge planning Patient/Family Anticipates Transition to home with help/services;inpatient rehabilitation facility Patient/Family Anticipated Services at Transition home health care;alf;other (see comments) (inpatient rehab) Transportation Anticipated family or friend will provide;health plan transportation Current Discharge Risk physical impairment;lives alone;dependent with mobility/activities of daily living;chronically ill Discharge Coordination/Tasks Status Post Discharge Needs/Treatments PT;OT;Wound Care;Assisted Home Visit Patient/Patient Administration Intern Provided With Choices Of Homecare Company Preferences(s) Homecare Company Preference(s) [facility] * Juaquin Kern MD - 11/03/2024 [...] Diet Diabetic/ Calorie Controlled; Carb Counting 60g/meal 5768-0778 kcal DVT Px: SCDs Status: Full Code [...] []CMG conslt []ID consult []PICC line (ordered) []Process Inspector clinic: pre-amputation education/fitting []Blood cultures: pending []Dressing [...] Patient arrived around 1800 this evening to [place] [id number] in no acute distress. Placed on contact [...] PAD, RLS and CKD with presents to [facility] inpatient floor for known left calc [...] (she has seen patient in the past) -Process Inspector to be called for pre-amputation education/fitting in [...] PAD, RLS and CKD3 that presents to [facility] inpatient floor as a direct admit [...] EXTREMITY ANGIOGRAM; Surgeon: Delbert Mcintosh MD; Location: [facility] OR; Service: Peripheral Vascular; Laterality: Left; BARIATRIC SURGERY 2018 CARDIAC ELECTROPHYSIOLOGY STUDY AND ABLATION x5 CARDIAC PACEMAKER PLACEMENT 2016 CARDIAC SURGERY 2020 watchman device CARDIOVERSION 07/2024 CC PERIPHERAL ANGIOGRAPHY Left 07/2024 LE CHANGE DRESSING WOUND VAC Left 09/10/2024 Procedure: APPLICATION OF WOUND VAC; Surgeon: Dallas Camejo MD; Location: [facility] OR; Service: Orthopaedics; Laterality: Left; FOOT SURGERY Right x5 INCISION AND DRAINAGE FOOT Left OH PROCEDURE MAZE AFIB OSTECTOMY CALCANEOUS Left 09/10/2024 Procedure: ANKLE PARTIAL CALCANECTOMY; Surgeon: Dallas Camejo MD; Location: [facility] OR; Service: Orthopaedics; Laterality: Left; wOUND [...] data in the 24 hours ending 11/02/24 183 General: Patient resting, in no acute distress, [...] PAD, RLS and CKD with presents to [facility] inpatient floor for known left calc [...] (she has seen patient in the past) -Process Inspector to be called for pre-amputation education/fitting in [...] PAD, RLS and CKD3 that presents to [facility] inpatient floor as a direct admit [...] WOUND VAC; Surgeon: Dallas Camejo MD; Location: [facility] OR; Service: Orthopaedics; Laterality: Left; FOOT SURGERY Right x5 INCISION AND DRAINAGE FOOT Left OH PROCEDURE MAZE AFIB OSTECTOMY CALCANEOUS Left 09/10/2024 Procedure: ANKLE PARTIAL CALCANECTOMY; Surgeon: Dallas Camejo MD; Location: [facility] OR; Service: Orthopaedics; Laterality: Left; wOUND PARTIALLY CLOSED SUPERFICIALLY, WOUND VAC PLACED TOTAL KNEE ARTHROPLASTY Left 2015 REVISION SAME YEAR/INFECTION Allergies Allergen Reactions Lisinopril [...] Continuous Glucose Sensor (FreeStyle Wallace 3 Sensor) Mis INJECT 1 DEVICE [...] to verify the correct patient, procedure, equipment, help desk support and site/side marked as required. Indications: vascular [...] and sister as his Healthcare Representatives. HCR- Nat. Copy in [employer]. SASKIA to f/u with pt this afternoon. Addendum: 1:30pm SASKIA met with pt today for support. Blas was sitting in his chair, open to visit. Very social and pleasant. Very future oriented with the hopes of a return to work, if he chooses based on his recovery. 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 He is anticipating rehab in a day [...] meets clinical indications for proline placement for ad terminal makeup operator antibiotics in the setting of osteomyelitis and [...] guidelines to the screening nurse at ext: [id number] Please direct any questions regarding procedure time/ date to the specific imaging modality: US: ext: [id number] CT: ext: 92310 Fluoroscopy: ext: [id number] IR: ext: [phone] Consent: The patient is able to give [...] injection 5,000 Units On hold since Fri11/16/2024 [id number] until manually unheld; held by Herberth Whitmore [...] at 1.8mg/dL - regarding the question of fpc PICC for Abx. This patient is high [...] sciatica Complete AV block (HCC) Diabetes mellitus ([facility]) TYPE II Diabetic foot [...] AMPUTATION; Surgeon: Dallas Camejo MD; Location: [facility]; Service: Orthopaedics; Laterality: Left; AORTOGRAM- ABDOMINAL Left 09/15/2024 Procedure: LEFT LOWER EXTREMITY ANGIOGRAM; Surgeon: Delbert Mcintosh MD; Location: [facility]; Service: Peripheral Vascular; Laterality: Left; BARIATRIC SURGERY 2018 CARDIAC ELECTROPHYSIOLOGY STUDY AND ABLATION x5 CARDIAC PACEMAKER PLACEMENT 2016 CARDIAC SURGERY 2020 watchman device CARDIOVERSION 07/2024 CC PERIPHERAL ANGIOGRAPHY Left 07/2024 LE CHANGE DRESSING WOUND VAC Left 09/10/2024 Procedure: APPLICATION OF WOUND VAC; Surgeon: Dallas Camejo MD; Location: [facility] OR; Service: Orthopaedics; Laterality: Left; EXTRACTION LEAD(S) LASER FROM DUAL PM SYSTEM Left 11/17/2024 Procedure: Extraction lead(s) laser from dual PM system; [id number]; Surgeon: Rui Pabon MD; Location: [facility]; Service: Electrophysiology; Laterality: Left; FOOT SURGERY Right x5 INCISION AND DRAINAGE FOOT Left INSERT/REPLACE LEADLESS PACEMAKER N/A 11/17/2024 Procedure: Micra Leadless Pacemaker Insert/Replacement; [id number]; Surgeon: Rui Pabon MD; Location: [facility]; [...] Continuous Glucose Sensor (FreeStyle Wallace 3 Sensor) [facility] INJECT 1 DEVICE INTO THE SKIN EVERY [...] injection 5,000 Units On hold since Fri11/16/2024 [id number] until manually unheld; held by Herberth Whitmore [...] found for: TACROLIMUS No results found for: [id number] , TOTVOL , CRCLR , PERIOD No [...] Sign: Anmol Reynoso MD 11/19/2024 10:09 AM [facility] Nephrology Office [phone] * Gilda May RN - 11/12/2024 3:31 PM EST [facility] Wound Care Consult Visit Date: 11/12/2024 Patient Name: Blas Genao Date of : 1960 Reason for Consult: initial Wound Team Summary Assessment: Known DFU to R plantar foot, typically followed by wound center/warm in worker outpatient near patient's home. Had been using [...] nighttime disruptions as medically appropriate. Maintain regular [id number]-wakpo including appropriate lighting in the room. Consider [...] limb. Per orders patient is to have historical records administrator on AAT, noted that residual limb was wrapped with srinivas wrap vs historical records administrator. Reached out to orthopedic PA in regards to historical records administrator for patient. Patient is motivated to participate [...] W/C, EMS transport and home PT. Current [facility] Basic Mobility Score: 14 OT 11/09 [...] with strength, balance and activity tolerance. Current [facility] Daily Activity Score: 15 Outcomes score [facility] The Activity Measure for Post-Acute Care (AM-PAC) Basic Mobility Inpatient Short Form (6-clicks) zakiya standardized measure used to quantify functional deficits in mobility. The total score of the measure ranges from 6-24. A higher score indicates a higher level of independence with functional mobility. Review of Systems As in HPI Objective Past Medical History: Diagnosis Date A-fib (HCC) Acute osteomyelitis ([facility]) Atrial flutter ([facility]) Cardiac pacemaker 2016 Carotid atherosclerosis Charcot's joint of right foot 2015 Chronic sciatica Complete AV block (HCC) Diabetes mellitus ([facility]) TYPE II Diabetic foot [...] KNEE AMPUTATION; Surgeon: Dallas Camejo MD; Location: [facility] OR; Service: Orthopaedics; Laterality: Left; AORTOGRAM- [...] WOUND VAC; Surgeon: Dallas Camejo MD; Location: [facility] OR; Service: Orthopaedics; Laterality: Left; FOOT SURGERY Right x5 INCISION AND DRAINAGE FOOT Left OH PROCEDURE MAZE AFIB OSTECTOMY CALCANEOUS Left 09/10/2024 Procedure: ANKLE PARTIAL CALCANECTOMY; Surgeon: Dallas Camejo MD; Location: [facility] OR; Service: Orthopaedics; Laterality: Left; wOUND [...] Continuous Glucose Sensor (FreeStyle Wallace 3 Sensor) [facility] INJECT 1 DEVICE INTO THE SKIN EVERY [...] empagliflozin (JARDIANCE) 25 mg On hold since [facility] 11/04/2024 at 1503 until manually unheld; [...] amputation. 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 He typically has an egg sandwich [...] - 2600 Kcals/day (20 - 25 Kcals/kg) [place]: RMR ([place]apack-St. Jeor Equation): 1920.63 [place]-St. Jeor (Considerations): 1368-7340 kcal (MSJ +1.2-1.3) based on 104 kg (229 lb 4.5 oz) (reported dry weight) Protein Needs: 117 - 141 gm, (1.5 - 1.8g/kg) based on 78.1 kg (172 lb 2.9 oz) (Adjusted IBW) Fluids: 2500ml based on Estimated/Assessed Carbohydrates Needs: 75 g CHO/meal Current Diet: Diet Diabetic/ Calorie Controlled; Carb Counting 60g/meal 4092-5797 kcal; 2 gm NA (Low Sodium); 2 [...] Compared to previous outside study report from [facility] on 08/05/2024, Mitral and tricuspid [...] KNEE AMPUTATION; Surgeon: Dallas Camejo MD; Location: [facility] OR; Service: Orthopaedics; Laterality: Left; AORTOGRAM- [...] WOUND VAC; Surgeon: Dallas Camejo MD; Location: [facility] OR; Service: Orthopaedics; Laterality: Left; FOOT SURGERY Right x5 INCISION AND DRAINAGE FOOT Left OH PROCEDURE MAZE AFIB OSTECTOMY CALCANEOUS Left 09/10/2024 Procedure: ANKLE PARTIAL CALCANECTOMY; Surgeon: Dallas Camejo MD; Location: [facility] OR; Service: Orthopaedics; Laterality: Left; wOUND [...] (10 mg total) by mouth. 07/31/24 External ProviderMD amoxicillin (AMOXIL) 500 MG capsule Take 1 [...] Continuous Glucose Sensor (FreeStyle Wallace 3 Sensor) [facility] INJECT 1 DEVICE INTO THE SKIN EVERY [...] mouth 2 times a day. 03/10/24 External ProviderMD Jardiance 25 MG tablet Take 1 tablet [...] assessment, and plan as detailed in the seo intern's note with the following exceptions, clarifications, or [...] from the original note were not included. [facility] CARDIOLOGY SERVICE CONSULT Date of Consult: 11/04/2024 Patient's Primary Care Physician: Lee Fabian MD Physician Requesting Consult: Orthopedic surgery Primary Mental Health Counselor: Mental Health Counselor at [facility] Reason for Consultation: Preop Admit Date: [...] WOUND VAC; Surgeon: Dallas Camejo MD; Location: [facility] OR; Service: Orthopaedics; Laterality: Left; FOOT SURGERY Right x5 INCISION AND DRAINAGE FOOT Left OH PROCEDURE MAZE AFIB OSTECTOMY CALCANEOUS Left 09/10/2024 Procedure: ANKLE PARTIAL CALCANECTOMY; Surgeon: Dallas Camejo MD; Location: [facility] OR; Service: Orthopaedics; Laterality: Left; wOUND [...] (two) times a day. Continuous Glucose Sensor (HOTPOTATO MED[employer]tyle Wallace 3 Sensor) [facility] INJECT 1 DEVICE INTO THE SKIN EVERY [...] 9 bpm Confirmed by MD Danya, Deep ([id number]) on 11/03/2024 4:30:25 PM Echocardiogram (TTE) Comprehensive [...] Compared to previous outside study report from [facility] on 08/05/2024, Mitral and tricuspid regurgitation were not previously reported. Recommend transesophageal echocardiogram if clinically indicated. All additional appropriate imaging studies within the past 24 hours reviewed - images reviewed and independently interpreted. Sign: Nitish Tracy MD [facility] Heart & Vascular [place] 11/04/2024 3:31 PM * Hilda Almodovar, [facility] - 11/04/2024 10:57 AM ESTAssociated Order(s): [...] has a past medical history of A-fib ([facility]), Acute osteomyelitis ([facility]), Atrial flutter ([facility]),Cardiac pacemaker (2015), Carotid atherosclerosis, Charcot's joint of right foot (2014), Chronic sciatica, Complete AV block ([facility]), Diabetes mellitus ([facility]), Diabetic foot ulcer ([facility]), ED (erectile dysfunction), Edema, ESBL (extended spectrum beta-lactamase) producing bacteria infection, GERD (gastroesophageal reflux disease), GI bleed, Hyperlipidemia, Hypertension, Leukocytosis, Metabolic bone disease, Multiple drug resistant organism (MDRO) culture positive, Non healing left heel wound, Obesity, Osteoarthrosis, Osteomyelitis of both feet (HCC), PAD (peripheral artery disease) ([facility]), Primary osteoarthritis of knee, Proteinuria, Renal osteodystrophy, Restless legs syndrome (RLS), Septic joint of left knee joint ([facility]), Sleep apnea, Smoker, and Stage 3a chronic kidney disease (CKD) ([facility]). Patient has a past surgical history that [...] and supports. Pt has been working at [employer] in [place] up until recently. He shared he is deemed disabledunder Social Security Disability though has been working under ticket to work program. 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 Discussed MA Paid Leave. Pt states [...] area. Gave pt info and literature on [facility] [employer]. Pt is familiar with this service though has not used it. He was glad to have the information. Thereis no application process for this service. Anyone 60 or older that lives within [employer]'s service area can use it and make reservations at [phone]. Pt indicates being able to facilitate rides [...] Patient Psychosocial History Demographic Information Preferred Language: Vincentian Preferred Name: Blas Relationship status: Single Children: Blas Genao Adult Son Legal next of kin [phone] Advance Directive Advance Directives:Advance Directives Does Patient Have Advance Directives?: yes Living Will: yes, copy requested Healthcare Administration Intern: yes, copy requested Legally Authorized Administration Intern Blas Genao Adult Son Legal next of kin [phone] Living Environment Household Members: pt and 3 pet cats Living Arrangements: House Does the patient have any environmental/safety concerns? No Support System Who currently provides assistance/support for the patient? Son , friends Also has homecare svs [facility] Quality of support systems? Supportive Patient provides care for: Self and Pet cats has 3 Employment/Finances/Insurance Financial Source: has been salary wages. Pt states he will be back on disability. Has been working through [employer] Ticket to Work Program and will be [...] Negative 10/27: Left foot wound culture at [place]: MRSA, Enterococcus faecalis, VRE, Corynebacterium speciesand gram-negative [...] Protocol Orders 11/02/241942 Robert Mtz MD, FACP, CWSP [facility] Infectious Diseases Available via [employer] SUBJECTIVE HISTORY OF PRESENT ILLNESS: This is a 63 y.o. year-old male complex medical history of atrial fibrillation, cardiac pacemaker, Watchman device, diabetes type II, history of ESBL infection, peripheral vascular disease, chronic kidney disease, diabetic foot infection/osteomyelitis, status post right TMA, recent hospitalization at [facility] for left diabetic foot infection. He underwent debridement of the left foot on 08/22 and repeat debridement on 08/24. Intraoperative cultures then revealed Enterococcus, ESBL E. coli and was treated with amoxicillin, meropenem and Flagyl. Fernanda parapsilosis was thought to be a contaminant. He was admitted to [facility] and underwent left calcaneus ostectomy on [...] HISTORY: Past Medical History: Diagnosis Date A-fib (HCC) [...] EXTREMITY ANGIOGRAM; Surgeon: Delbert Mcintosh MD; Location: [facility]; Service: Peripheral Vascular; Laterality: Left; BARIATRIC SURGERY 2018 CARDIAC ELECTROPHYSIOLOGY STUDY AND ABLATION x5 CARDIAC PACEMAKER PLACEMENT 2016 CARDIAC SURGERY 2020 watchman device CARDIOVERSION 07/2024 CC PERIPHERAL ANGIOGRAPHY Left 07/2024 LE CHANGE DRESSING WOUND VAC Left 09/10/2024 Procedure: APPLICATION OF WOUND VAC; Surgeon: Dallas Camejo MD; Location: [facility] OR; Service: Orthopaedics; Laterality: Left; FOOT SURGERY Right x5 INCISION AND DRAINAGE FOOT Left OH PROCEDURE MAZE AFIB OSTECTOMY CALCANEOUS Left 09/10/2024 Procedure: ANKLE PARTIAL CALCANECTOMY; Surgeon: Dallas Camejo MD; Location: [facility] OR; Service: Orthopaedics; Laterality: Left; wOUND [...] not compromised. This report was generated using [employer] Speaking dictation software. Although every attempt has been made by the provider to proofread this document, occasional misspellings and typographical errors may still be present. documented in this encounter Miscellaneous Notes * Plan of Care - Mitesh Caldwell RN - 11/25/2024 7:51 PM EST Patient being discharged home with home services. 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 Option care educated patient on home [...] Aguilar RD - 11/24/2024 12:27 PM EST [facility] Nutrition Note Visit Type: follow up [...] to be adjusted [facility] Nutrition Assessment: Nutrition following. 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 He typically has an egg sandwich for breakfast and a protein shake (like muscle milk), for lunch he has a egg or chicken salad sandwich and a protein drink, and dinner typically is a protein/starch/vegetable. Food Related Allergies: FA Cultural/Ethnic Preferences: Pt/Family deny. Food Insecurity Concerns: [...] Aspiration precautions Diet Cardiac; Carb Counting 60g/meal 0389-1315 kcal; 2 gm NA (Low Sodium); Low [...] of Care Review Outcome: Progressing Vpaced on ihajpzb-Ukkbtsdb-gtamdcm on IV Cubicin andIV Rocephin-Plan for PICC [...] room. BL groin sites w tag & gadolorese, CDI. AxO4, V-paced on tele. Contact isolation continues per protocol. Pt offers no c/o atthis time. Safety maintained, call light within reach. Eunice Castillo 11/17/2024 7:59 PM * Op Note - Rui Pabon MD - 11/17/2024 3:00 PM EST Images from the original note were not included. [address] [address] OPERATIVE REPORT Patient Name: Blas Genao Date of : 1960 Date of Procedure: 11/17/2024 Surgeons and Role: * Rui Pabon MD - Primary * Corbin Lamb APRN - Physician Turn Out Worker Pre-op Diagnosis: Pacemaker infection, subsequent encounter [T82.7XXD] Post-Op Diagnosis Codes: * Pacemaker infection, subsequent encounter [T82.7XXD] Details of Procedure Procedure(s): Extraction lead(s) laser from dual PM system; 54882 Micra Leadless Pacemaker Insert/Replacement; 94808 Additional Procedures Surgeon: Rui Pabon MD Turn Out Worker: : : Corbin Lamb APRN Anesthesia: [...] femoral venous access was obtained. A 12 Polish sheath was placed in the right femoral vein. Through this an Amplatz stiff wire was advanced under fluoroscopic visualization to the right IJ. Using ultrasound-guided Seldinger technique left femoral venous access was obtained. 8 Polish sheath was placed in left femoral vein. [...] were pulled back. Active-fixation mechanisms on both [id number] active-fixation leads were retracted. Leads were cut. EZ interlocking stylette's were placed down both right atrial right ventricular leads and deployed. External silk sutures were used for additional support. We then began with a 14 Polish laser sheath. Under fluoroscopic visualization we started with the right ventricular lead. 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 We were able to progressto the innominate area. Here we reached the innominate region and had significant fibrosis. We then remove the 14 Polish laser sheath and moved to the right [...] then used the right femoral venous 12 Polish sheath and Amplatz wire which was in [...] ventricle positioning on the septum. ADAME and INDONESIAN position confirmed our placement.We did an initial deployment here. Sensing of paced R wave was 12 mV. Device impedance was 520 ohms. Threshold was initially 1.5 V that decreased to 1.2 V. However remained at 1.2 V at 0.24 ms. We therefore retrieved the device back into the deploying sheath. We then movedthe device slightly superior. ADAME and INDONESIAN position to confirm septal position. Initial testing [...] Z stitch was placed around the 8 Polish sheath as well and the sheath was [...] Implant Name Type Inv. Item Serial No. Grating Machine Operator Lot No. LRB No. Used Action [id number] PACEMAKER CARDIAC MICRA AV2 [facility] - [id number] Pacemaker [id number] PACEMAKER CARDIAC MICRA AV2 LDLS BNDL [id number] [employer] Left 1 Implanted Specimens: Dual-chamber pacemaker generator; chronic right atrial 5076 active- fixation Medtronic lead; chronic right ventricular 5076 active-fixation Medtronic lead; 2 sewing rings. 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 He typically has an egg sandwich for breakfast and a protein shake (like muscle milk), for lunch he has a egg or chicken salad sandwich and a protein drink, and dinner typically is a protein/starch/vegetable. Food Related Allergies: FA Cultural/Ethnic Preferences: None noted/reported. Food Insecurity Concerns: [...] Daily Energy and Protein Needs: Energy Needs: Peapack: RMR (Peapack-St. Jeor Equation): 1920.63 Peapack-St. Jeor (Considerations): 7478-1437 kcal (MSJ +1.2-1.3) based on 104 kg [...] able to make needs known. NPO at [place] for pacemaker extraction. Placed on 1L NC [...] with Dr. Daniel Ramos MD Neurology PGY-2 [facility] * Hospital Course - Gianluca Calles [...] while on IV antibiotics. Fax results to [phone]. Patient will need to be scheduled [...] R plantar foot, typically followed by wound center/warm in worker outpatient near patient's home. Had been using [...] at discharge summary. Tracy Lopez RN, CDS [phone] * Plan of Care - Eunice Khan [...] no change Outcome Evaluation: Assumed care from 1855-3111. Pt alert and oriented x4. Seems to [...] and continued daptomycin/ceftaroline. Couldn't go for TATIANNA 2/2 hypoxia. EP consulted for possible infected pacer [...] Case IDs Date Procedure Surgeon Location Status [id number] 11/05/24 LEFT BELOW KNEE AMPUTATION Dallas Camejo [...] 4 mg q3h PRN for severe pain ([id number]). 1x dose of liquid dilaudid 1mg given [...] ischemic changes. Resp: Acute hypoxic respiratory failure 10/31 volume overload, Hx. MERVIN on CPAP, smoker [...] Compared to previous outside study report from [facility] on 08/05/2024, Mitral and tricuspid [...] Plan Note Summary:pt awaiting TATIANNA and MRI. THIEN met with pt at bedside, discussed acute rehab options, pt agreeable to referrals in the [facility] area. Referrals placed to [facility] rehabs Recommendation:inpt rehab Problem: Adult Inpatient [...] Compared to previous outside study report from [facility] on 08/05/2024, Mitral and tricuspid [...] legal medical record Tracy Lopez RN, CDS [phone] * Provider Documentation Query - Shay Martin [...] legal medical record. Tracy Lopez RN, CDS [phone] * Plan of Care - Krystina Felipe [...] in [place] d/t need for rescue NIV. [facility] 16 on 11/06-will needupdated PT/OT notes, pt active with [facility], may need inpt rehab. CM will [...] Compared to previous outside study report from [facility] on 08/05/2024, Mitral and tricuspid [...] weeks post op, can likely change to [facility] - Left leg tissue/bone pathology 11/05: pending [...] BASOABS 0.01 -- -- Recent Labs 11/06/2445711/07/24 0813 11/07/24 1236 11/07/24 1612 11/08/24 0005 [...] PO, BID Given, 150 mg at 11/07 2043 calcium citrate (CALCITRATE) tablet 950 mg 950 mg, PO, BID with meals Given, 950 mg at 11/07 165 ceftaroline (TEFLARO) 600 mg in sodium chloride (NS) 0.9 % 250 mL IVPB-WTD 600 mg, IV, Q8H Given, 600 mg at 11/08 323 cholecalciferol tablet 2,000 Units 2,000 Units, PO, [...] empagliflozin (JARDIANCE) 25 mg On hold since [facility] 11/04/2024 at 1503 until manually unheld; [...] Plan of Care Review Flowsheets (Taken 11/08/2024 0635) Outcome Evaluation: Assumed care of pt at [...] 2 diabetes mellitus, hypertension, hyperlipidemia, CKD stageIII, EMRVIN on CPAP presented as a direct admit [...] mg, PO, Daily Given, 200 mg at 02/09 0814 Continuous Medication Ordered Dose/Rate, Route, Frequency [...] to prior. Interpreted by: Roberto Tolbert MD Rag Collector XR Chest 1 view-Portable (STAT) Final Result Bilateral reticulonodular opacities concerning for interstitial edema. Superimposed atypical infection cannot be ruled out. Interpreted by: David Vogt DO Rag Collector I personally reviewed the images and the resident's preliminary report and AGREE with the report as it is now presented (RADPAL1). Echocardiogram (TTE) Comprehensive (Contrast PRN) Final Result Transesophageal Echocardiogram (Results Pending) CT Head w/contrast (Results Pending) Rafiq Chakraborty MD PGY-3 [facility] Internal Medicine [place] text preferred 11/07/24 11:26 AM * Plan [...] paced. Tolerating PO, voiding in urinal, LBM 28. Dsg to L BKA cdi, Process Inspector historical records administrator in place. Pt reporting adequate paincontrol this [...] level of independence with self-care tasks. Baseline [facility] Daily Activity Score: 24 Current AMPAC Daily Activity Score: 18 Objective Data Cognitive Status: Alert+oriented x4, follows multi step instructions and communicates appropriately Cognitive Function: Attention: intact Memory/recall: intact Safety Awareness: intact, however would benefit from further education and training Insight: good, however would benefit from further education and sales and training specialist Function: intact Activities of Daily Living: Grooming/Oral [...] WOUND VAC; Surgeon: Dallas Camejo MD; Location: [facility] OR; Service: Orthopaedics; Laterality: Left; FOOT SURGERY Right x5 INCISION AND DRAINAGE FOOT Left OH PROCEDURE MAZE AFIB OSTECTOMY CALCANEOUS Left 09/10/2024 Procedure: ANKLE PARTIAL CALCANECTOMY; Surgeon: Dallas Camejo MD; Location: [facility] OR; Service: Orthopaedics; Laterality: Left; wOUND [...] Profile) lives alone. reports good friend supportand steven akierna Patient Goals (Occupational Profile) to return home [...] Progressive Mobility Level Achieved Transferring to Chair [facility] Daily Activity Putting on and taking off Lower Body Clothing? 2 Bathing (including washing/rinsing/drying)? 3 Toileting (includes using toilet, bedpan, or urinal)? 2 Putting on and taking off upper body clothing? 4 Taking care of personal grooming such as brushing teeth? 3 Eating meals? 4 [facility] Daily Activity Score 18 Therapy Assessment/Plan [...] OT goal 1 Bathing Goal 1 (OT) [place] Level/Cues Needed (Bathing Goal 1, OT) modified independence Activity/Device (Bathing Goal 1, OT) bathing skills, all Time Frame (Bathing Goal 1, OT) 2 weeks Dressing Goal 1 (OT) Activity/Device (Dressing Goal 1, OT) lower body dressing Time Frame (Dressing Goal 1, OT) 1 week [place]/Cues Needed (Dressing Goal 1, OT) modified independence Toileting Goal 1 (OT) Activity/Device (Toileting Goal 1, OT) toileting skills, all Time Frame (Toileting Goal 1, OT) 1 week [place] Level/Cues Needed (Toileting Goal 1, OT) modified [...] complex. Tolerating PO, voiding without issue, LBM 2/ - pt reports passingflatus. Srinivas wrap to [...] [facility] [address] [place] [phone] OPERATIVE REPORT Patient Name: Blas Genao Date [...] Type Source Tests Collected by Time Destination [id number] : Left leg below the knee amputation [...] LEFT BELOW KNEE AMPUTATION Brief Op Note Blasольга Genao 63 y.o. 11/05/2024 Pre-op Diagnosis: Acute osteomyelitis of left calcaneus (HCC) [M86.172] Post-op Diagnosis: Post-Op Diagnosis Codes: * Acute osteomyelitis of left calcaneus (HCC) [M86.172] LEFT BELOW KNEE AMPUTATION: Additional Procedures Surgeons and Role: * Dallas Camejo MD - Primary * Sheila Childs APRN - Assisting Procedure Description: see op note Procedure Findings: see op note Anesthesia: general Staff: Steam Boiler Fireman: Mary Emery RN Scrub Precepting: Binta Griffith CST Steam Boiler Fireman Relief: Cynthia Desai RN Estimated Blood Loss: * No values recorded between 11/05/2024 2:06 PM and 11/05/2024 3:22 PM * Specimens: ID Type Source Tests Collected by Time Destination [id number] : Left leg below the knee amputation [...] Surgeon(s): SHUBHAM Triana MD Anesthesia: general Staff: Steam Boiler Fireman: Mary Emery RN Scrub Precepting: Binta Griffith CST Steam Boiler Fireman Relief: Cynthia Desai RN Estimated Blood Loss: 25 ml Specimens: ID Type Source Tests Collected by Time Destination [id number] : Left leg below the knee amputation [...] cards Consults: Needs a postop eval from [facility]. Already being followed by ID, [...] Plan for OR today. Will have TATIANNA. Biological Sciences Professor to follow Naveen Kebede 11/05/2024 9:29 AM [...] doing TATIANNA first is not going to knife changer. Leg wounds are like the source that has now seeded the valves and likely have involved thePPM. Will eventually need PP, evaluation and extraction afterwards. - Proceed with BKA - ABx per ID - Will need TATIANNA afterwards - Consider CT head to rule out septic emboli to brain petty with acute mental status change. MD Emiliana Perez Cardiology T: [phone] F: [phone] Main Office: [address] [place] [address] * Provider Documentation Query - Juaquin Kern [...] at discharge summary. Tracy Lopez RN, CDS [phone] * Plan of Care - Belkys Diaz [...] Care Review Outcome: Progressing Flowsheets (Taken 11/04/2024 7219) Plan of Care Reviewed With: patient Progress: [...] Note Assessment completed with patient and/or patient's veterans service representative, medical record review and discussion with clinical team. CC met with the patient using social distancing. Provided a Case Coordination packet with contact information, CC pamphlet and Your Next Step: Care Outside the Hospital brochure to the patient and/or patient veterans service representative. Summary: 63 yo M admitted [...] home health services. Patient is active with [facility] for SN & BUSINESS SUPERVISOR svs. Patient went to a local wound [...] patient/family choice as outlined in the flowsheet -[facility] for resumption of SN & BUSINESS SUPERVISOR, requested addition of PT & OT to POC Barriers to discharge: OR 11/05 Process Inspector - P2P requested ID plan PT/OT evals [...] at Transition: (inpatient rehab) home health care alf other (see comments) Patient/Family Anticipates Transition to: home with help/services inpatient rehabilitation facility Current Outpatient/Agency/Support Group: ([facility] - SN 3 weekly (wound care) & BUSINESS SUPERVISOR x 2 weekly) homecare agency [facility] [...] 2:00 PM EDT Office [facility] [place] [address] Dallas Camejo MD [address] [place] [address] 12/16/2024 8:30 AM EDT Office Visit [facility] Infectious Disease [address] [place] [phone] Ena Mtz MD [address] [place], [place] [id number] 12/22/2024 10:00 AM EDT Appointment [facility] [place] at [facility] - Echocardiography Laboratory [address] [place] [phone] Ena Mzt MD [address] [place], [place] [id number] Pending Results Name Type Priority Associated Diagnoses [...] AM EST PM SINGLE LEAD EVAL WITH PROGRAM,[id number] Routine 11/18/2024 7:45 AM EST COMPLETE BLOOD [...] EST PM DUAL LEAD EVAL WITH PROGRAMMING, [id number] Routine 11/12/2024 1:15 PM EST POCT GLUCOSE, [...] EST PM DUAL LEAD EVAL WITH PROGRAMMING, [id number] Routine 11/11/2024 4:33 PM EST ECHOCARDIOGRAM TRANSESOPHAGEAL [...] CARE TEST O RDERALUCILLE Performing Organization Address [facility] Phone Number [facility] See Below * (ABNORMAL) POCT Glucose, Fingerstick (11/25/2024 8:40 AM EST) POC Glucose 150(H) 65 - 99 mg/dL 11/25/2024 8:41 AM EST Blood specimen / Unknown 11/25/2024 8:40 AM EST 11/25/2024 8:41 AM EST Dallas Camejo MD POINT OF CARE TEST O CRISTIANERALUCILLE Performing Organization Address [facility] Phone Number [facility] See Below * (ABNORMAL) POCT Glucose, Fingerstick (11/24/2024 4:56 PM EST) POC Glucose 105(H) 65 - 99 mg/dL 11/24/2024 5:00 PM EST Blood specimen / Unknown 11/24/2024 4:56 PM EST 11/24/2024 5:00 PM EST Dallas Camejo MD POINT OF CARE TEST O RDERALUCILLE Performing Organization Address [facility] Phone Number HOSPITAL LAB See Below * Glucose, Fingerstick (POCT) (TID AC) (11/24/2024 12:01 PM EST) 11/24/2024 12:0 1 PM EST Corbin Lamb APRN POCT ORDERABLES - DEVICE * (ABNORMAL) POCT Glucose, Fingerstick (11/24/2024 11:37 AM EST) Pathologist [facility] POC Glucose 104(H) 65 - 99 mg/dL 11/24/2024 12:03 PM EST Blood specimen / Unknown 11/24/2024 11:37 AM EST 11/24/2024 12:03 PM EST Dallas Camejo MD POINT OF CARE TEST O JOSEPH Performing Organization Address [facility] Phone Number [facility] See Below * (ABNORMAL) POCT Glucose, Fingerstick (11/24/2024 7:52 AM EST) Pathologist [facility] POC Glucose 103(H) 65 - 99 mg/dL 11/24/2024 8:11 AM EST Blood specimen / Unknown 11/24/2024 7:52 AM EST 11/24/2024 8:11 AM EST Dallas Camejo MD POINT OF CARE TEST O JOSEPH Performing Organization Address [facility] Phone Number [facility] See Below * (ABNORMAL) Complete Blood Count WITHOUT Differential - in AM (11/24/2024 6:56 AM EST) [facility] White Blood Cell Count 10.0 4.0 - 11.0 Thou/uL 11/24/2024 9:12 AM [facility] Platelet Count 366 150 - 450 Thou/uL 11/24/2024 9:12 AM [facility] Hemoglobin 9.0(L) 13.0 - 17.7 g/dL 11/24/2024 9:12 AM [facility] Hematocrit 29.5(L) 39.0 - 54.0 % 11/24/2024 9:12 AM [facility] Red Blood Cell Count 3.25(L) 4.50 - 6.20 Mil/uL 11/24/2024 9:12 AM [facility] MCV 91 80 - 100 fL 11/24/2024 9:12 AM [facility] MCH 27.7 27.0 - 31.0 pg 11/24/2024 9:12 AM [facility] MCHC 30.5 30.0 - 36.0 g/dL 11/24/2024 9:12 AM [facility] RDW 18.0(H) 11.5 - 14.5 % 11/24/2024 9:12 AM [facility] MPV 10.8 7.5 - 12.5 fL 11/24/2024 9:12 AM [facility] Blood Blood specimen / Unknown 11/24/2024 6:56 AM EST 11/24/2024 8:52 AM EST Gianluca Calles MD LAB BLOOD ORDERABLES [address] [address], [address] [address] * (ABNORMAL) Comprehensive Metabolic Panel (AM) (11/24/2024 6:56 AM EST) Glucose 99 65 - 99 mg/dL 11/24/2024 9:28 AM [facility] Comment:Fasting: <100 mg/dL, Non-Fasting: <200 mg/dL (ADA 2005) Blood Urea Nitrogen (BUN) 35(H) 8 - 21 mg/dL 11/24/2024 9:28 AM [facility] Creatinine 1.6(H) 0.5 - 1.3 mg/dL 11/24/2024 9:28 AM [facility] eGFR 48(L) >59 11/24/2024 9:28 AM [facility] Comment:CKD-EPI (2020) in mL /min/1.73 sq meters. Sodium 139 136 - 145 mmol/L 11/24/2024 9:28 AM [facility] Potassium 3.8 3.4 - 5.3 mmol/L 11/24/2024 9:28 AM [facility] Chloride 102 98 - 107 mmol/L 11/24/2024 9:28 AM [facility] CO2 24 22 - 33 mmol/L 11/24/2024 9:28 AM [facility] Calcium 8.9 8.7 - 10.5 mg/dL 11/24/2024 9:28 AM [facility] Alkaline Phosphatase 97 45 - 128 U/L 11/24/2024 9:28 AM [facility] Aspartate Aminotrans (AST) 14 10 - 55 U/L 11/24/2024 9:28 AM [facility] Alanine Aminotrans (ALT) 20 10 - 55 U/L 11/24/2024 9:28 AM [facility] Bilirubin, Total 0.2 0.2 - 1.0 mg/dL 11/24/2024 9:28 AM [facility] Protein, Total 6.7 6.3 - 8.3 g/dL 11/24/2024 9:28 AM [facility] Albumin 3.1(L) 3.4 - 4.8 g/dL 11/24/2024 9:28 AM [facility] BUN/Creatinine Ratio 22 10.0 - 25.0 Ratio 11/24/2024 9:28 AM [facility] Globulin 3.6 1.5 - 3.9 g/dL 11/24/2024 9:28 AM [facility] Albumin/Globulin Ratio 0.9(L) 1.0 - 3.0 Ratio 11/24/2024 9:28 AM [facility] Anion Gap 13 7 - 17 11/24/2024 9:28 AM [facility] Blood Blood specimen / Unknown 11/24/2024 6:56 AM EST 11/24/2024 8:52 AM EST Gianluca Calles MD LAB BLOOD ORDERABLES Performing Organization Address City/[facility]/[place] [address], [place] [address] * (ABNORMAL) POCT Glucose, Fingerstick (11/23/2024 8:48 PM EST) POC Glucose 116(H) 65 - 99 mg/dL 11/23/2024 8:49 PM EST Blood specimen / Unknown 11/23/2024 8:48 PM EST 11/23/2024 8:49 PM EST Dallas Camejo MD POINT OF CARE TEST O RDERABLES HOSPITAL LAB See Below * POCT Glucose, Fingerstick (11/23/2024 4:35 PM EST) Pathologist [facility] POC Glucose 84 65 - 99 mg/dL 11/23/2024 4:36 PM EST Blood specimen / Unknown 11/23/2024 4:35 PM EST 11/23/2024 4:36 PM EST Dallas Camejo MD POINT OF CARE TEST O RDERABLES Performing Organization Address [facility] Number [facility] See Below * (ABNORMAL) POCT Glucose, Fingerstick (11/23/2024 11:35 AM EST) Pathologist [facility] POC Glucose 151(H) 65 - 99 mg/dL 11/23/2024 11:36 AM EST Blood specimen / Unknown 11/23/2024 11:35 AM EST 11/23/2024 11:36 AM EST Dallas Camejo MD POINT OF CARE TEST O RDERALUCILLE Performing Organization Address [facility] Number [facility] See Below * Influenza A/B, RSV, SARS-CoV-2 BALJINDER Multiplex (FLUVID) (11/23/2024 10:45 AM EST) [facility] Influenza A Virus Not Detected Not Detected 11/23/2024 12:00 PM [facility] Influenza B Virus Not Detected Not Detected 11/23/2024 12:00 PM [facility] SARS-CoV-2 Not Detected Not Detected 11/23/2024 12:00 PM [facility] Respiratory Syncytial Virus Not Detected Not Detected 11/23/2024 12:00 PM [facility] Comment Negative results do not preclude SARS-CoV-2, Influenza or RSV infection and should not be used as the sole basis for treatment or other patient management decisions. 11/23/2024 12:00 PM [facility] Swab, Nasopharyngeal Nasopharyngeal swab / Unknown 11/23/2024 10:45 AM EST 11/23/2024 11:08 AM EST Gianluca Calles MD MICROBIOLOGY - GENER AL ORDERABLES Performing Organization Address [facility] [place] [address], [address] [address] * (ABNORMAL) POCT Glucose, Fingerstick (11/23/2024 7:34 AM EST) POC Glucose 126(H) 65 - 99 mg/dL 11/23/2024 7:35 AM EST Blood specimen / Unknown 11/23/2024 7:34 AM EST 11/23/2024 7:35 AM EST Dallas Camejo MD POINT OF CARE TEST O RDERABLES Performing Organization Address [facility] Co de Phone Number HOSPITAL LAB See Below * (ABNORMAL) C-REACTIVE PROTEIN (11/23/2024 6:43 AM EST) Pathologist [facility] C-Reactive Protein 4.88(H) 0 - 0.49 mg/dL 11/23/2024 11:53 AM EST [facility] 11/23/2024 6:43 AM EST 11/23/2024 6:49 AM EST Gianluca Calles MD LAB BLOOD ORDERABLES Performing Organization Address [facility] [place] [address], [place] [address] * (ABNORMAL) Erythrocyte Sedimentation Rate (ESR) (11/23/2024 6:43 AM EST) Pathologist [facility] Erythrocyte Sediment Rate (ESR) 62(H) <20 MM/HR 11/23/2024 12:07 PM EST [facility] Blood specimen / Unknown 11/23/2024 6:43 AM EST 11/23/2024 6:49 AM EST Gianluca Calles MD LAB BLOOD ORDERABLES Performing Organization Address [facility] [facility] [place] [address], [place] [address] * (ABNORMAL) HEPATIC FUNCTION PANEL (11/23/2024 6:43 AM EST) Alkaline Phosphatase 103 45 - 128 U/L 11/23/2024 11:53 AM [facility] Aspartate Aminotrans (AST) 22 10 - 55 U/L 11/23/2024 11:53 AM [facility] Alanine Aminotrans (ALT) 28 10 - 55 U/L 11/23/2024 11:53 AM [facility] Bilirubin, Total 0.2 0.2 - 1.0 mg/dL 11/23/2024 11:53 AM [facility] Protein, Total 6.6 6.3 - 8.3 g/dL 11/23/2024 11:53 AM [facility] Albumin 3.1(L) 3.4 - 4.8 g/dL 11/23/2024 11:53 AM [facility] Bilirubin, Direct 0.1 0 - 0.2 mg/dL 11/23/2024 11:53 AM [facility] Globulin 3.5 1.5 - 3.9 g/dL 11/23/2024 11:53 AM [facility] Albumin/Globulin Ratio 0.9(L) 1.0 - 3.0 Ratio 11/23/2024 11:53 AM [facility] 11/23/2024 6:43 AM EST 11/23/2024 6:49 AM EST Gianluca Calles MD LAB BLOOD ORDERABLES Performing Organization Address City/[facility] Co de Phone Number [address] [address], [address] [address] * CREATINE KINASE (CK) (11/23/2024 6:43 AM EST) Creatine Kinase (CK) 36 24 - 204 U/L 11/23/2024 11:53 AM [facility] 11/23/2024 6:43 AM EST 11/23/2024 6:49 AM EST Gianluca Calles MD LAB BLOOD ORDERABLES [facility] [address] [place] [address], [address] [address] * (ABNORMAL) Complete Blood Count WITHOUT Differential - in AM (11/23/2024 6:43 AM EST) White Blood Cell Count 10.8 4.0 - 11.0 Thou/uL 11/23/2024 7:01 AM [facility] Platelet Count 353 150 - 450 Thou/uL 11/23/2024 7:01 AM [facility] Hemoglobin 8.7(L) 13.0 - 17.7 g/dL 11/23/2024 7:01 AM [facility] Hematocrit 28.3(L) 39.0 - 54.0 % 11/23/2024 7:01 AM [facility] Red Blood Cell Count 3.14(L) 4.50 - 6.20 Mil/uL 11/23/2024 7:01 AM [facility] MCV 90 80 - 100 fL 11/23/2024 7:01 AM [facility] MCH 27.7 27.0 - 31.0 pg 11/23/2024 7:01 AM [facility] MCHC 30.7 30.0 - 36.0 g/dL 11/23/2024 7:01 AM [facility] RDW 18.0(H) 11.5 - 14.5 % 11/23/2024 7:01 AM [facility] MPV 10.4 7.5 - 12.5 fL 11/23/2024 7:01 AM [facility] Blood Blood specimen / Unknown 11/23/2024 6:43 AM EST 11/23/2024 6:49 AM EST Gianluca Calles MD LAB BLOOD ORDERABLES [address] [address], [address] [address] * Magnesium (AM) (11/23/2024 6:43 AM EST) Magnesium 2.2 1.6 - 2.7 mg/dL 11/23/2024 7:22 AM [facility] Blood Blood specimen / Unknown 11/23/2024 6:43 AM EST 11/23/2024 6:49 AM EST Gianluca Calles MD LAB BLOOD ORDERABLES [address] [address], [address] [address] * (ABNORMAL) Basic Metabolic Panel (AM) (11/23/2024 6:43 AM EST) Glucose 114(H) 65 - 99 mg/dL 11/23/2024 7:22 AM [facility] Comment:Fasting: <100 mg/dL, Non-Fasting: <200 mg/dL (ADA 2004) Blood Urea Nitrogen (BUN) 31(H) 8 - 21 mg/dL 11/23/2024 7:22 AM [facility] Creatinine 1.5(H) 0.5 - 1.3 mg/dL 11/23/2024 7:22 AM [facility] eGFR 52(L) >59 11/23/2024 7:22 AM [facility] Comment:CKD-EPI (2020) in mL /min/1.73 sq meters. Sodium 140 136 - 145 mmol/L 11/23/2024 7:22 AM [facility] Potassium 4.0 3.4 - 5.3 mmol/L 11/23/2024 7:22 AM [facility] Chloride 104 98 - 107 mmol/L 11/23/2024 7:22 AM [facility] CO2 25 22 - 33 mmol/L 11/23/2024 7:22 AM [facility] Anion Gap 11 7 - 17 11/23/2024 7:22 AM [facility] Calcium 9.0 8.7 - 10.5 mg/dL 11/23/2024 7:22 AM [facility] BUN/Creatinine Ratio 21 10.0 - 25.0 Ratio 11/23/2024 7:22 AM [facility] Blood Blood specimen / Unknown 11/23/2024 6:43 AM EST 11/23/2024 6:49 AM EST Gianluca Calles MD LAB BLOOD ORDERABLES Performing Organization Address City/[facility]/ZIP Co de Phone Number [address] [address], [address] [address] * (ABNORMAL) POCT Glucose, Fingerstick (11/22/2024 9:02 PM EST) POC Glucose 138(H) 65 - 99 mg/dL 11/22/2024 9:02 PM EST Blood specimen / Unknown 11/22/2024 9:02 PM EST 11/22/2024 9:03 PM EST Dallas Camejo MD POINT OF CARE TEST O RDERABLES Performing Organization Address City/[facility]/ZIP Co de Phone Number [facility] LAB See Below * (ABNORMAL) POCT Glucose, Fingerstick (11/22/2024 4:36 PM EST) POC Glucose 128(H) 65 - 99 mg/dL 11/22/2024 4:37 PM EST Blood specimen / Unknown 11/22/2024 4:36 PM EST 11/22/2024 4:37 PM EST Dallas Camejo MD POINT OF CARE TEST O RDERABLES Performing Organization Address City/[facility]/ZIP Co de Phone Number [facility] LAB See Below * PM LEADLESS SINGLE-CARDIAC CHAMBER EVAL W/PROGRAM (IN PERSON), [id number] (11/22/2024 2:20 PM EST) Date Time Interrogation Session [id number] PACEART Implantable Pulse Generator Grating Machine Operator [employer] PACEART Implantable Pulse Generator Model [id number] Micra AV2 PACEART Implantable Pulse Generator Serial Number [id number] PACEART Implantable Pulse Generator Type Pacemaker PACEART [...] last reset 99.86 % PACEART Otf Statistic HYDRAULIC CONTROLS TECHNICIAN Percent 100.00 % PACEART Otf Statistic VS Percent 0 % PACEART Anatomical Region Laterality Modality Other 11/22/2024 1:58 PM EST Narrative 11/28/2024 10:40 AM EST Micra AV leadless Pacemaker evaluation completed on B10E. Per patient request and verbal order from SHUBHAM Pitts: LRL increased from 50 bpm to 60 bpm. Presenting rhythm: AM/HYDRAULIC CONTROLS TECHNICIAN @ 62 bpm. Underlying rhythm: CHB. AM/HYDRAULIC CONTROLS TECHNICIAN pacing 81%, with total V-pacing 100%. Battery [...] CARE TEST O RDERABLES Performing Organization Address City/[facility]/ZIP Co de Phone Number HOSPITAL LAB See Below * Magnesium (AM) (11/22/2024 7:31 AM EST) Magnesium 2.0 1.6 - 2.7 mg/dL 11/22/2024 8:17 AM [facility] Blood (Plasma/Serum) 11/22/2024 7:31 AM EST 11/22/2024 7:54 AM EST Gianluca Calles MD LAB BLOOD ORDERABLES Performing Organization Address [facility] [place] [address], [address] [address] * (ABNORMAL) Complete Blood Count WITHOUT Differential - in AM (11/22/2024 7:31 AM EST) White Blood Cell Count 12.1(H) 4.0 - 11.0 Thou/uL 11/22/2024 8:19 AM [facility] Platelet Count 333 150 - 450 Thou/uL 11/22/2024 8:19 AM [facility] Hemoglobin 8.1(L) 13.0 - 17.7 g/dL 11/22/2024 8:19 AM [facility] Hematocrit 26.2(L) 39.0 - 54.0 % 11/22/2024 8:19 AM [facility] Red Blood Cell Count 2.88(L) 4.50 - 6.20 Mil/uL 11/22/2024 8:19 AM [facility] MCV 91 80 - 100 fL 11/22/2024 8:19 AM [facility] MCH 28.1 27.0 - 31.0 pg 11/22/2024 8:19 AM [facility] MCHC 30.9 30.0 - 36.0 g/dL 11/22/2024 8:19 AM [facility] RDW 18.0(H) 11.5 - 14.5 % 11/22/2024 8:19 AM [facility] MPV 10.5 7.5 - 12.5 fL 11/22/2024 8:19 AM [facility] Blood Blood specimen / Unknown 11/22/2024 7:31 AM EST 11/22/2024 7:54 AM EST Gianluca Calles MD LAB BLOOD ORDERABLES [address] [address], [address] [address] * (ABNORMAL) Basic Metabolic Panel (AM) (11/22/2024 7:31 AM EST) Glucose 178(H) 65 - 99 mg/dL 11/22/2024 8:17 AM [facility] Comment:Fasting: <100 mg/dL, Non-Fasting: <200 mg/dL (ADA 2005) Blood Urea Nitrogen (BUN) 36(H) 8 - 21 mg/dL 11/22/2024 8:17 AM [facility] Creatinine 1.6(H) 0.5 - 1.3 mg/dL 11/22/2024 8:17 AM [facility] eGFR 48(L) >59 11/22/2024 8:17 AM [facility] Comment:CKD-EPI (2020) in mL /min/1.73 sq meters. Sodium 137 136 - 145 mmol/L 11/22/2024 8:17 AM [facility] Potassium 4.2 3.4 - 5.3 mmol/L 11/22/2024 8:17 AM [facility] Chloride 101 98 - 107 mmol/L 11/22/2024 8:17 AM [facility] CO2 27 22 - 33 mmol/L 11/22/2024 8:17 AM [facility] Anion Gap 9 7 - 17 11/22/2024 8:17 AM [facility] Calcium 8.8 8.7 - 10.5 mg/dL 11/22/2024 8:17 AM [facility] BUN/Creatinine Ratio 23 10.0 - 25.0 Ratio 11/22/2024 8:17 AM EST [facility] Blood (Plasma/Serum) 11/22/2024 7:31 AM EST 11/22/2024 7:54 AM EST Gianluca Calles MD LAB BLOOD ORDERABLES Performing Organization Address [facility]/ZIP Co de Phone Number [address] [address], [address] [address] * (ABNORMAL) POCT Glucose, Fingerstick (11/21/2024 9:28 [...] POCT Glucose, Fingerstick (11/21/2024 7:45 AM EST) [facility] POC Glucose 175(H) 65 - 99 mg/dL 11/21/2024 7:54 AM EST Blood specimen / Unknown 11/21/2024 7:45 AM EST 11/21/2024 7:54 AM EST Dallas Camejo MD POINT OF CARE TEST O RDERABLES [facility] LAB See Below * Magnesium (AM) (11/21/2024 6:58 AM EST) [facility] Magnesium 2.1 1.6 - 2.7 mg/dL 11/21/2024 8:14 AM EST [facility] Blood (Plasma/Serum) 11/21/2024 6:58 AM EST 11/21/2024 7:36 AM EST Gianluca Calles MD LAB BLOOD ORDERABLES Performing Organization Address City/[facility] [place] [address], [place] [address] * (ABNORMAL) Complete Blood Count WITHOUT Differential - in AM (11/21/2024 6:58 AM EST) [facility] White Blood Cell Count 14.0(H) 4.0 - 11.0 Thou/uL 11/21/2024 7:55 AM [facility] Platelet Count 329 150 - 450 Thou/uL 11/21/2024 7:55 AM [facility] Hemoglobin 8.2(L) 13.0 - 17.7 g/dL 11/21/2024 7:55 AM [facility] Hematocrit 26.7(L) 39.0 - 54.0 % 11/21/2024 7:55 AM [facility] Red Blood Cell Count 2.95(L) 4.50 - 6.20 Mil/uL 11/21/2024 7:55 AM [facility] MCV 91 80 - 100 fL 11/21/2024 7:55 AM [facility] MCH 27.8 27.0 - 31.0 pg 11/21/2024 7:55 AM [facility] MCHC 30.7 30.0 - 36.0 g/dL 11/21/2024 7:55 AM [facility] RDW 17.8(H) 11.5 - 14.5 % 11/21/2024 7:55 AM [facility] MPV 10.4 7.5 - 12.5 fL 11/21/2024 7:55 AM [facility] Blood Blood specimen / Unknown 11/21/2024 6:58 AM EST 11/21/2024 7:36 AM EST Gianluac Calles MD [place] [address], [place] [address] * (ABNORMAL) Basic Metabolic Panel (AM) (11/21/2024 6:58 AM EST) Glucose 153(H) 65 - 99 mg/dL 11/21/2024 8:14 AM [facility] Comment:Fasting: <100 mg/dL, Non-Fasting: <200 mg/dL (ADA 2004) Blood Urea Nitrogen (BUN) 38(H) 8 - 21 mg/dL 11/21/2024 8:14 AM [facility] Creatinine 1.8(H) 0.5 - 1.3 mg/dL 11/21/2024 8:14 AM [facility] eGFR 42(L) >59 11/21/2024 8:14 AM [facility] Comment:CKD-EPI (2020) in mL /min/1.73 sq meters. Sodium 136 136 - 145 mmol/L 11/21/2024 8:14 AM [facility] Potassium 3.7 3.4 - 5.3 mmol/L 11/21/2024 8:14 AM [facility] Chloride 99 98 - 107 mmol/L 11/21/2024 8:14 AM [facility] CO2 27 22 - 33 mmol/L 11/21/2024 8:14 AM [facility] Anion Gap 10 7 - 17 11/21/2024 8:14 AM [facility] Calcium 8.8 8.7 - 10.5 mg/dL 11/21/2024 8:14 AM [facility] BUN/Creatinine Ratio 21 10.0 - 25.0 Ratio 11/21/2024 8:14 AM [facility] Blood (Plasma/Serum) 11/21/2024 6:58 AM EST 11/21/2024 7:36 AM EST Gianluca Calles MD [place] [address], [place] [address] * (ABNORMAL) POCT Glucose, Fingerstick (11/20/2024 8:16 [...] POCT Glucose, Fingerstick (11/20/2024 12:07 PM EST) Pathologist [facility] POC Glucose 167(H) 65 - 99 mg/dL 11/20/2024 12:12 PM EST Blood specimen / Unknown 11/20/2024 12:07 PM EST 11/20/2024 12:12 PM EST Dallas Camejo MD POINT OF CARE TEST O RDERABLES Performing Organization Address [facility] Co de Phone Number [facility] LAB See Below * (ABNORMAL) POCT Glucose, Fingerstick (11/20/2024 7:58 AM EST) Pathologist [facility] POC Glucose 166(H) 65 - 99 mg/dL 11/20/2024 8:02 AM EST Blood specimen / Unknown 11/20/2024 7:58 AM EST 11/20/2024 8:02 AM EST Dallas Camejo MD POINT OF CARE TEST O RDERABLES Performing Organization Address [facility] Co hi Phone Number [facility] See Below * Magnesium (AM) (11/20/2024 6:59 AM EST) [facility] Magnesium 2.2 1.6 - 2.7 mg/dL 11/20/2024 8:04 AM EST [facility] Blood (Plasma/Serum) 11/20/2024 6:59 AM EST 11/20/2024 7:31 AM EST Gianluca Calles MD LAB BLOOD ORDERABLES Performing Organization Address [facility] Co de Phone Number [address] [address], [address] [address] * (ABNORMAL) Complete Blood Count WITHOUT Differential - in AM (11/20/2024 6:59 AM EST) [facility] White Blood Cell Count 11.9(H) 4.0 - 11.0 Thou/uL 11/20/2024 7:45 AM EST [facility] Platelet Count 339 150 - 450 Thou/uL 11/20/2024 7:45 AM [facility] Hemoglobin 8.3(L) 13.0 - 17.7 g/dL 11/20/2024 7:45 AM [facility] Hematocrit 27.2(L) 39.0 - 54.0 % 11/20/2024 7:45 AM [facility] Red Blood Cell Count 3.01(L) 4.50 - 6.20 Mil/uL 11/20/2024 7:45 AM [facility] MCV 90 80 - 100 fL 11/20/2024 7:45 AM [facility] MCH 27.6 27.0 - 31.0 pg 11/20/2024 7:45 AM [facility] MCHC 30.5 30.0 - 36.0 g/dL 11/20/2024 7:45 AM [facility] RDW 17.5(H) 11.5 - 14.5 % 11/20/2024 7:45 AM [facility] MPV 10.7 7.5 - 12.5 fL 11/20/2024 7:45 AM [facility] Blood Blood specimen / Unknown 11/20/2024 6:59 AM EST 11/20/2024 7:31 AM EST Gianluca Calles MD [place] [address], [place] [address] * (ABNORMAL) Basic Metabolic Panel (AM) (11/20/2024 6:59 AM EST) Glucose 155(H) 65 - 99 mg/dL 11/20/2024 8:04 AM [facility] Comment:Fasting: <100 mg/dL, Non-Fasting: <200 mg/dL (ADA 2005) Blood Urea Nitrogen (BUN) 47(H) 8 - 21 mg/dL 11/20/2024 8:04 AM [facility] Creatinine 1.9(H) 0.5 - 1.3 mg/dL 11/20/2024 8:04 AM [facility] eGFR 39(L) >59 11/20/2024 8:04 AM [facility] Comment:CKD-EPI (2020) in mL /min/1.73 sq meters. Sodium 137 136 - 145 mmol/L 11/20/2024 8:04 AM [facility] Potassium 3.8 3.4 - 5.3 mmol/L 11/20/2024 8:04 AM [facility] Chloride 98 98 - 107 mmol/L 11/20/2024 8:04 AM [facility] CO2 30 22 - 33 mmol/L 11/20/2024 8:04 AM [facility] Anion Gap 9 7 - 17 11/20/2024 8:04 AM [facility] Calcium 9.0 8.7 - 10.5 mg/dL 11/20/2024 8:04 AM [facility] BUN/Creatinine Ratio 25 10.0 - 25.0 Ratio 11/20/2024 8:04 AM [facility] Blood (Plasma/Serum) 11/20/2024 6:59 AM EST 11/20/2024 7:31 AM EST Gianluca Calles MD [place] [address], [place] [address] * (ABNORMAL) POCT Glucose, Fingerstick (11/19/2024 4:13 PM EST) POC Glucose 274(H) 65 - 99 mg/dL 11/19/2024 4:14 PM EST Blood specimen / Unknown 11/19/2024 4:13 PM EST 11/19/2024 4:14 PM EST Dallas Camejo MD POINT OF CARE TEST O RDERABLES HOSPITAL LAB See Below * (ABNORMAL) Urinalysis with Reflex to Microscopic (11/19/2024 4:00 PM EST) Color Yellow 11/19/2024 4:30 PM [facility] Clarity Clear 11/19/2024 4:30 PM [facility] Specific Finley 1.008 1.003 - 1.030 11/19/2024 4:30 PM [facility] pH 6.0 5.0 - 8.0 11/19/2024 4:30 PM [facility] Leukocyte Esterase Large(A) Negative 11/19/2024 4:30 PM [facility] Nitrite Negative Negative 11/19/2024 4:30 PM [facility] Protein Negative Negative 11/19/2024 4:30 PM [facility] Glucose 0 0 - 99 mg/dL 11/19/2024 4:30 PM [facility] Ketones Negative Negative 11/19/2024 4:30 PM [facility] Blood Negative Negative 11/19/2024 4:30 PM [facility] Bilirubin Negative Negative 11/19/2024 4:30 PM [facility] WBC >25(H) 0 - 4 per hpf 11/19/2024 4:30 PM [facility] RBC 2 0 - 4 per hpf 11/19/2024 4:30 PM [facility] X-Specimen 16 Voided urine specimen / Unknown 11/19/2024 4:00 PM EST 11/19/2024 4:18 PM EST Anmol Reynoso MD [place] [address], [address] [address] * OSMOLALITY, URINE (11/19/2024 4:00 PM EST) Osmolality, Urine 201 50 - 1,200 mOsm/Kg 11/19/2024 6:20 PM [facility] Urine Urine specimen / Unknown 11/19/2024 4:00 PM EST 11/19/2024 4:19 PM EST Anmol Reynoso MD [place] [address], [address] [address] * Urea Nitrogen, Urine, Random (11/19/2024 4:00 PM EST) Urea Nitrogen, Random Urine 273 mg/dL 11/19/2024 5:43 PM EST [facility] Comment:Reference range not established for random specimen. Urine Urine specimen / Unknown 11/19/2024 4:00 PM EST 11/19/2024 4:19 PM EST Anmol Reynoso MD URINE ORDERABLES Performing Organization Address City/[facility]/ZIP Co de Phone Number [address] [address], [address] [address] * SODIUM, URINE, RANDOM (11/19/2024 4:00 PM EST) Sodium, Urine Random 21 mmol/L 11/19/2024 5:43 PM [facility] Comment:Reference range not established for random specimen. Urine Urine specimen / Unknown 11/19/2024 4:00 PM EST 11/19/2024 4:19 PM EST Anmol Reynoso MD URINE ORDERABLES Performing Organization Address [facility] Co de Phone Number [address] [address], [address] [address] * CREATININE, URINE, RANDOM (11/19/2024 4:00 PM EST) Creatinine, Urine, Random 31 mg/dL 11/19/2024 5:43 PM [facility] Comment:Reference range not established for random specimen. Urine Urine specimen / Unknown 11/19/2024 4:00 PM EST 11/19/2024 4:19 PM EST Anmol Reynoso MD URINE ORDERABLES Performing Organization Address City/[facility]/ZIP Co de Phone Number [address] [address], [address] [address] * Chloride, Urine, Random (11/19/2024 4:00 PM EST) Chloride, Urine, Random 23 mmol/L 11/19/2024 5:43 PM EST [facility] Comment:Reference range not established for random specimen. Urine Urine specimen / Unknown 11/19/2024 4:00 PM EST 11/19/2024 4:19 PM EST Anmol Reynoso MD URINE ORDERABLES [address] [address], [address] [address] * CVC INSERT (TUNNEL) W/O PORT GREATER [...] table. A preprocedure time-out was performed per [facility] protocol. The right neck [...] access, a 26 cm long dual lumen 5-Polish cuffed tunneled catheter was placed under fluoroscopic [...] table. A preprocedure time-out was performed per [facility] protocol. The right neck [...] access, a 26 cm long dual lumen 5-Polish cuffed tunneled catheter was placed under fluoroscopic [...] CARE TEST O RDERALUCILLE Performing Organization Address [facility] Number [facility] LAB See Below * (ABNORMAL) POCT Glucose, Fingerstick (11/19/2024 8:06 AM EST) POC Glucose 190(H) 65 - 99 mg/dL 11/19/2024 8:08 AM EST Blood specimen / Unknown 11/19/2024 8:06 AM EST 11/19/2024 8:08 AM EST Dallas Camejo MD POINT OF CARE TEST O RDERALUCILLE Performing Organization Address [facility] LAB See Below * (ABNORMAL) Complete Blood Count WITHOUT Differential - Daily x2 (11/19/2024 7:54 AM EST) Pathologist [facility] White Blood Cell Count 10.1 4.0 - 11.0 Thou/uL 11/19/2024 8:48 AM [facility] Platelet Count 354 150 - 450 Thou/uL 11/19/2024 8:48 AM [facility] Hemoglobin 8.2(L) 13.0 - 17.7 g/dL 11/19/2024 8:48 AM [facility] Hematocrit 26.6(L) 39.0 - 54.0 % 11/19/2024 8:48 AM [facility] Red Blood Cell Count 2.99(L) 4.50 - 6.20 Mil/uL 11/19/2024 8:48 AM [facility] MCV 89 80 - 100 fL 11/19/2024 8:48 AM [facility] MCH 27.4 27.0 - 31.0 pg 11/19/2024 8:48 AM [facility] MCHC 30.8 30.0 - 36.0 g/dL 11/19/2024 8:48 AM [facility] RDW 17.2(H) 11.5 - 14.5 % 11/19/2024 8:48 AM [facility] MPV 10.8 7.5 - 12.5 fL 11/19/2024 8:48 AM [facility] Blood Blood specimen / Unknown 11/19/2024 7:54 AM EST 11/19/2024 8:33 AM EST Corbin Lamb [facility] LAB BLOOD ORDERABL ES Performing Organization Address City/[facility]/[place] [address], [place] [address] * Magnesium (Daily x 2 days) (11/19/2024 7:54 AM EST) Magnesium 2.1 1.6 - 2.7 mg/dL 11/19/2024 9:00 AM [facility] Blood (Plasma/Serum) 11/19/2024 7:54 AM EST 11/19/2024 8:33 AM EST Corbin Lamb APRN [place] [address], [place] [address] * (ABNORMAL) Basic Metabolic Panel (Daily x 2 days) (11/19/2024 7:54 AM EST) Glucose 169(H) 65 - 99 mg/dL 11/19/2024 9:00 AM [facility] Comment:Fasting: <100 mg/dL, Non-Fasting: <200 mg/dL (ADA 2005) Blood Urea Nitrogen (BUN) 43(H) 8 - 21 mg/dL 11/19/2024 9:00 AM [facility] Creatinine 1.8(H) 0.5 - 1.3 mg/dL 11/19/2024 9:00 AM [facility] eGFR 42(L) >59 11/19/2024 9:00 AM [facility] Comment:CKD-EPI (2020) in mL /min/1.73 sq meters. Sodium 132(L) 136 - 145 mmol/L 11/19/2024 9:00 AM [facility] Potassium 3.7 3.4 - 5.3 mmol/L 11/19/2024 9:00 AM [facility] Chloride 92(L) 98 - 107 mmol/L 11/19/2024 9:00 AM [facility] CO2 30 22 - 33 mmol/L 11/19/2024 9:00 AM [facility] Anion Gap 10 7 - 17 11/19/2024 9:00 AM [facility] Calcium 9.1 8.7 - 10.5 mg/dL 11/19/2024 9:00 AM [facility] BUN/Creatinine Ratio 24 10.0 - 25.0 Ratio 11/19/2024 9:00 AM [facility] Blood (Plasma/Serum) 11/19/2024 7:54 AM EST 11/19/2024 8:33 AM EST Corbin Lamb APRN LAB BLOOD ORDERABL ES [address] [address], [address] [address] * (ABNORMAL) POCT Glucose, Fingerstick (11/18/2024 9:04 PM EST) POC Glucose 253(H) 65 - 99 mg/dL 11/18/2024 9:11 PM EST Blood specimen / Unknown 11/18/2024 9:04 PM EST 11/18/2024 9:11 PM EST Dallas Camejo MD POINT OF CARE TEST O RDERABLES Performing Organization Address [facility] Phone Number [facility] LAB See Below * (ABNORMAL) POCT Glucose, Fingerstick (11/18/2024 4:56 PM EST) POC Glucose 305(H) 65 - 99 mg/dL 11/18/2024 4:58 PM EST Blood specimen / Unknown 11/18/2024 4:56 PM EST 11/18/2024 4:57 PM EST Dallas Camejo MD POINT OF CARE TEST O RDERALUCILLE Performing Organization Address [facility] Phone Number [facility] LAB See Below * (ABNORMAL) POCT Glucose, Fingerstick (11/18/2024 12:00 PM EST) POC Glucose 253(H) 65 - 99 mg/dL 11/18/2024 12:01 PM EST Blood specimen / Unknown 11/18/2024 12:00 PM EST 11/18/2024 12:01 PM EST Dallas Camejo MD POINT OF CARE TEST O CRISTIANERALUCILLE Performing Organization Address [facility] LAB See Below * (ABNORMAL) POCT Glucose, Fingerstick (11/18/2024 7:53 AM EST) POC Glucose 129(H) 65 - 99 mg/dL 11/18/2024 7:58 AM EST Blood specimen / Unknown 11/18/2024 7:53 AM EST 11/18/2024 7:58 AM EST Dallas Camejo MD POINT OF CARE TEST O CRISTIANERALUCILLE Performing Organization Address 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 Presenting rhythm: AM-HYDRAULIC CONTROLS TECHNICIAN @ 69 bpm. Underlying rhythm: No ventricular response greater than 40 bpm. AM-HYDRAULIC CONTROLS TECHNICIAN @ 84.8%. Battery and device parameters evaluated and within normal limits. Normal pacemaker function. Micra pacemakers do not record events. Sri Pena RN Corbin Lamb APRN CV CARDIAC SERVICE S ORDERABLES * Creatine Kinase (CK) (11/18/2024 7:15 AM EST) Creatine Kinase (CK) 49 24 - 204 U/L 11/18/2024 8:22 AM EST [facility] Blood (Plasma/Serum) 11/18/2024 7:15 AM EST 11/18/2024 7:47 AM EST Corbin Lamb APRN LAB BLOOD ORDERABL ES [address] [address], [address] [address] * (ABNORMAL) Complete Blood Count WITHOUT Differential - Daily x2 (11/18/2024 7:15 AM EST) [facility] White Blood Cell Count 12.3(H) 4.0 - 11.0 Thou/uL 11/18/2024 8:00 AM [facility] Platelet Count 349 150 - 450 Thou/uL 11/18/2024 8:00 AM [facility] Hemoglobin 8.1(L) 13.0 - 17.7 g/dL 11/18/2024 8:00 AM [facility] Hematocrit 25.5(L) 39.0 - 54.0 % 11/18/2024 8:00 AM [facility] Red Blood Cell Count 2.90(L) 4.50 - 6.20 Mil/uL 11/18/2024 8:00 AM [facility] MCV 88 80 - 100 fL 11/18/2024 8:00 AM [facility] MCH 27.9 27.0 - 31.0 pg 11/18/2024 8:00 AM [facility] MCHC 31.8 30.0 - 36.0 g/dL 11/18/2024 8:00 AM [facility] RDW 17.1(H) 11.5 - 14.5 % 11/18/2024 8:00 AM [facility] MPV 10.6 7.5 - 12.5 fL 11/18/2024 8:00 AM [facility] Blood Blood specimen / Unknown 11/18/2024 7:15 AM EST 11/18/2024 7:47 AM EST Corbin Lamb [employer] LAB BLOOD ORDERABL ES [address] [address], [address] [address] * Magnesium (Daily x 2 days) (11/18/2024 7:15 AM EST) [facility] Magnesium 2.0 1.6 - 2.7 mg/dL 11/18/2024 8:22 AM [facility] Blood (Plasma/Serum) 11/18/2024 7:15 AM EST 11/18/2024 7:47 AM EST Corbin Lamb [facility] LAB BLOOD ORDERABL ES [address] [address], [facility] [address] [place] [address] * (ABNORMAL) Basic Metabolic Panel (Daily x 2 days) (11/18/2024 7:15 AM EST) Glucose 114(H) 65 - 99 mg/dL 11/18/2024 8:22 AM [facility] Comment:Fasting: <100 mg/dL, Non-Fasting: <200 mg/dL (ADA 2004) Blood Urea Nitrogen (BUN) 45(H) 8 - 21 mg/dL 11/18/2024 8:22 AM [facility] Creatinine 1.8(H) 0.5 - 1.3 mg/dL 11/18/2024 8:22 AM [facility] eGFR 42(L) >59 11/18/2024 8:22 AM [facility] Comment:CKD-EPI (2020) in mL /min/1.73 sq meters. Sodium 129(L) 136 - 145 mmol/L 11/18/2024 8:22 AM [facility] Potassium 3.6 3.4 - 5.3 mmol/L 11/18/2024 8:22 AM [facility] Chloride 89(L) 98 - 107 mmol/L 11/18/2024 8:22 AM [facility] CO2 29 22 - 33 mmol/L 11/18/2024 8:22 AM [facility] Anion Gap 11 7 - 17 11/18/2024 8:22 AM [facility] Calcium 8.9 8.7 - 10.5 mg/dL 11/18/2024 8:22 AM [facility] BUN/Creatinine Ratio 25 10.0 - 25.0 Ratio 11/18/2024 8:22 AM [facility] Blood (Plasma/Serum) 11/18/2024 7:15 AM EST 11/18/2024 7:47 AM EST Corbin Lamb APRN LAB BLOOD ORDERABL ES Performing Organization Address City/[facility]/ZIP Co de Phone Number [address] [address], [address] [address] * XR Chest 1 view (11/17/2024 5:48 [...] femoral venous access was obtained. ??A 12 Polish sheath was placed in the right femoral vein. ?? Through this an Amplatz stiff wire was advanced under fluoroscopic visualization to the right IJ. ??Using ultrasound-guided Seldinger technique left femoral venous access was obtained. ??8 Polish sheath was placed in left femoral vein. [...] support. ??We then began with a 14 Polish laser sheath. ??Under fluoroscopic visualization we started with the right ventricular lead. ?? 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 ??We were able to progress to the innominate area. ??Here we reached the innominate region and had significant fibrosis. ??We then remove the 14 Polish laser sheath and moved to the right [...] then used the right femoral venous 12 Polish sheath and Amplatz wire which was in [...] ventricle positioning on the septum. ??ADAME and INDONESIAN position confirmed our placement.We did an initial deployment here. ??Sensing of paced R wave was 12 mV. ??Device impedance was 520 ohms. ??Threshold was initially 1.5 V that decreased to 1.2 V. ??However remained at 1.2 V at 0.24 ms. ??We therefore retrieved the device back into the deploying sheath. ??We then moved the device slightly superior. ??ADAME and INDONESIAN position to confirm septal position. ??Initial testing [...] ??Z stitch was placed around the 8 Polish sheath as well and the sheath was [...] * Phosphorus (AM) (11/17/2024 8:16 AM EST) Pathologist [facility] Phosphorus 3.5 2.7 - 4.5 mg/dL 11/17/2024 9:01 AM EST [facility] Blood (Plasma/Serum) 11/17/2024 8:16 AM EST 11/17/2024 8:30 AM EST Maddison Villalpando MD LAB BLOOD ORDERABLES Performing Organization Address [facility] [place] [address], [place] [address] * Magnesium (AM) (11/17/2024 8:16 AM EST) Pathologist [facility] Magnesium 2.0 1.6 - 2.7 mg/dL 11/17/2024 9:01 AM EST [facility] Blood (Plasma/Serum) 11/17/2024 8:16 AM EST 11/17/2024 8:30 AM EST Maddison Villalpando MD LAB BLOOD ORDERABLES Performing Organization Address [facility] [place] [address], [place] [address] * (ABNORMAL) POCT Glucose, Fingerstick (11/17/2024 7:20 [...] 4.0 - 11.0 Thou/uL 11/17/2024 5:26 AM [facility] Platelet Count 373 150 - 450 Thou/uL 11/17/2024 5:26 AM [facility] Hemoglobin 8.2(L) 13.0 - 17.7 g/dL 11/17/2024 5:26 AM [facility] Hematocrit 25.0(L) 39.0 - 54.0 % 11/17/2024 5:26 AM [facility] Red Blood Cell Count 2.94(L) 4.50 - 6.20 Mil/uL 11/17/2024 5:26 AM [facility] MCV 85 80 - 100 fL 11/17/2024 5:26 AM [facility] MCH 27.9 27.0 - 31.0 pg 11/17/2024 5:26 AM [facility] MCHC 32.8 30.0 - 36.0 g/dL 11/17/2024 5:26 AM [facility] RDW 16.5(H) 11.5 - 14.5 % 11/17/2024 5:26 AM [facility] MPV 10.4 7.5 - 12.5 fL 11/17/2024 5:26 AM [facility] Blood Blood specimen / Unknown 11/17/2024 5:00 AM EST 11/17/2024 5:09 AM EST Adithya Sheriff PA-C LAB BLOOD ORDERAB LES Performing Organization Address City/[facility]/ZIP Co de Phone Number [address] [address], [address] [address] * (ABNORMAL) Comprehensive Metabolic Panel (AM) (11/17/2024 5:00 AM EST) [facility] Glucose 171(H) 65 - 99 mg/dL 11/17/2024 6:55 AM [facility] Comment:Fasting: <100 mg/dL, Non-Fasting: <200 mg/dL (ADA 2004) Blood Urea Nitrogen (BUN) 54(H) 8 - 21 mg/dL 11/17/2024 6:55 AM [facility] Creatinine 1.8(H) 0.5 - 1.3 mg/dL 11/17/2024 6:55 AM [facility] eGFR 42(L) >59 11/17/2024 6:55 AM [facility] Comment:CKD-EPI (2020) in mL /min/1.73 sq meters. Sodium 128(L) 136 - 145 mmol/L 11/17/2024 6:55 AM [facility] Potassium 3.7 3.4 - 5.3 mmol/L 11/17/2024 6:55 AM [facility] Chloride 87(L) 98 - 107 mmol/L 11/17/2024 6:55 AM [facility] CO2 30 22 - 33 mmol/L 11/17/2024 6:55 AM [facility] Calcium 9.4 8.7 - 10.5 mg/dL 11/17/2024 6:55 AM [facility] Alkaline Phosphatase 117 45 - 128 U/L 11/17/2024 6:55 AM [facility] Aspartate Aminotrans (AST) 24 10 - 55 U/L 11/17/2024 6:55 AM [facility] Alanine Aminotrans (ALT) 19 10 - 55 U/L 11/17/2024 6:55 AM [facility] Bilirubin, Total 0.2 0.2 - 1.0 mg/dL 11/17/2024 6:55 AM [facility] Protein, Total 6.6 6.3 - 8.3 g/dL 11/17/2024 6:55 AM [facility] Albumin 2.9(L) 3.4 - 4.8 g/dL 11/17/2024 6:55 AM [facility] BUN/Creatinine Ratio 30(H) 10.0 - 25.0 Ratio 11/17/2024 6:55 AM EST [facility] Globulin 3.7 1.5 - 3.9 g/dL 11/17/2024 6:55 AM [facility] Albumin/Globulin Ratio 0.8(L) 1.0 - 3.0 Ratio 11/17/2024 6:55 AM EST [facility] Anion Gap 11 7 - 17 11/17/2024 6:55 AM EST [facility] Blood (Plasma/Serum) 11/17/2024 5:00 AM EST 11/17/2024 5:09 AM EST Adithya Sheriff PA-C LAB [place] [address], [place] [address] * (ABNORMAL) POCT Glucose, Fingerstick (11/16/2024 8:09 [...] CARE TEST O RDERABLES Performing Organization Address City/[facility]/ZIP Co de Phone Number [facility] LAB See Below * (ABNORMAL) POCT Glucose, Fingerstick (11/16/2024 7:37 AM EST) POC Glucose 211(H) 65 - 99 mg/dL 11/16/2024 7:52 AM EST Blood specimen / Unknown 11/16/2024 7:37 AM EST 11/16/2024 7:52 AM EST Dallas Camejo MD POINT OF CARE TEST O RDERABLES Performing Organization Address [facility] Co de Phone Number [facility] LAB See Below * Phosphorus (AM) (11/16/2024 7:23 AM EST) Phosphorus 3.8 2.7 - 4.5 mg/dL 11/16/2024 8:34 AM EST [facility] Blood (Plasma/Serum) 11/16/2024 7:23 AM EST 11/16/2024 7:51 AM EST Maddison Villalpando MD LAB BLOOD ORDERABLES Performing Organization Address [facility] [place] [address], [address] [address] * Magnesium (AM) (11/16/2024 7:23 AM EST) Magnesium 2.1 1.6 - 2.7 mg/dL 11/16/2024 8:34 AM EST [facility] Blood (Plasma/Serum) 11/16/2024 7:23 AM EST 11/16/2024 7:51 AM EST Maddison Villalpando MD LAB BLOOD ORDERABLES Performing Organization Address City/[facility]/ZIP Co de Phone Number [address] [address], [address] [address] * (ABNORMAL) Basic Metabolic Panel (AM) (11/16/2024 7:23 AM EST) Glucose 190(H) 65 - 99 mg/dL 11/16/2024 8:34 AM [facility] Comment:Fasting: <100 mg/dL, Non-Fasting: <200 mg/dL (ADA 2004) Blood Urea Nitrogen (BUN) 55(H) 8 - 21 mg/dL 11/16/2024 8:34 AM [facility] Creatinine 1.9(H) 0.5 - 1.3 mg/dL 11/16/2024 8:34 AM [facility] eGFR 39(L) >59 11/16/2024 8:34 AM [facility] Comment:CKD-EPI (2020) in mL /min/1.73 sq meters. Sodium 130(L) 136 - 145 mmol/L 11/16/2024 8:34 AM [facility] Potassium 3.6 3.4 - 5.3 mmol/L 11/16/2024 8:34 AM [facility] Chloride 87(L) 98 - 107 mmol/L 11/16/2024 8:34 AM [facility] CO2 32 22 - 33 mmol/L 11/16/2024 8:34 AM [facility] Anion Gap 11 7 - 17 11/16/2024 8:34 AM [facility] Calcium 9.1 8.7 - 10.5 mg/dL 11/16/2024 8:34 AM [facility] BUN/Creatinine Ratio 29(H) 10.0 - 25.0 Ratio 11/16/2024 8:34 AM [facility] Blood (Plasma/Serum) 11/16/2024 7:23 AM EST 11/16/2024 7:51 AM EST Maddison Villalpando MD LAB BLOOD ORDERABLES [address] [address], [address] [address] * (ABNORMAL) Complete Blood Count WITHOUT Differential - in AM (11/16/2024 7:23 AM EST) [facility] White Blood Cell Count 10.7 4.0 - 11.0 Thou/uL 11/16/2024 8:10 AM [facility] Platelet Count 408 150 - 450 Thou/uL 11/16/2024 8:10 AM [facility] Hemoglobin 8.1(L) 13.0 - 17.7 g/dL 11/16/2024 8:10 AM [facility] Hematocrit 25.6(L) 39.0 - 54.0 % 11/16/2024 8:10 AM [facility] Red Blood Cell Count 2.97(L) 4.50 - 6.20 Mil/uL 11/16/2024 8:10 AM [facility] MCV 86 80 - 100 fL 11/16/2024 8:10 AM [facility] MCH 27.3 27.0 - 31.0 pg 11/16/2024 8:10 AM [facility] MCHC 31.6 30.0 - 36.0 g/dL 11/16/2024 8:10 AM [facility] RDW 16.8(H) 11.5 - 14.5 % 11/16/2024 8:10 AM [facility] MPV 10.4 7.5 - 12.5 fL 11/16/2024 8:10 AM [facility] Blood Blood specimen / Unknown 11/16/2024 7:23 AM EST 11/16/2024 7:51 AM EST Maddison Villalpando MD [place] [address], [place] [address] * Type and Screen (11/16/2024 7:23 AM EST) [facility] ABO/Rh A POSITIVE 11/16/2024 8:39 AM [facility] Antibody Screen NEGATIVE 11/16/2024 8:53 AM [facility] Specimen Expiration 11/19/2024 11/16/2024 8:39 AM [facility] Unit Number [id number] 11/16/2024 9:12 AM [facility] Blood Component Type LEUKOREDUCED RED CELLS 11/16/2024 9:12 AM [facility] Unit Division 00 11/16/2024 9:12 AM [facility] Unit Status REL FROM ALLOC 2:05 AM [facility] Transfusion Status OK TO TRANSFUSE 11/16/2024 9:12 AM [facility] Crossmatch Result Electronically Compatible 11/16/2024 9:12 AM [facility] Unit Number [id number] 11/16/2024 9:12 AM [facility] Blood Component Type LEUKOREDUCED RED CELLS 11/16/2024 9:12 AM [facility] Unit Division 00 11/16/2024 9:12 AM [facility] Unit Status REL FROM ALLOC 2:05 AM [facility] Transfusion Status OK TO TRANSFUSE 11/16/2024 9:12 AM [facility] Crossmatch Result Electronically Compatible 11/16/2024 9:12 AM [facility] Unit Number [id number] 11/16/2024 9:12 AM [facility] Blood Component Type LEUKOREDUCED RED CELLS 11/16/2024 9:12 AM [facility] Unit Division 00 11/16/2024 9:12 AM [facility] Unit Status REL FROM ALLOC 2:05 AM [facility] Transfusion Status OK TO TRANSFUSE 11/16/2024 9:12 AM [facility] Crossmatch Result Electronically Compatible 11/16/2024 9:12 AM [facility] Unit Number [id number] 11/16/2024 9:12 AM [facility] Blood Component Type LEUKOREDUCED RED CELLS 11/16/2024 9:12 AM [facility] Unit Division 00 11/16/2024 9:12 AM [facility] Unit Status REL FROM ALLOC 2:05 AM [facility] Transfusion Status OK TO TRANSFUSE 11/16/2024 9:12 AM [facility] Crossmatch Result Electronically Compatible 11/16/2024 9:12 AM EST [facility] Blood Blood specimen / Unknown 11/16/2024 7:23 AM EST 11/16/2024 7:57 AM EST Comment:Blood Cristina Michael JALLOH BLOOD BANK TEST OR DERABLES [facility]OSPITAL LAB See Below [address] [address] * (ABNORMAL) POCT Glucose, Fingerstick (11/15/2024 8:14 PM EST) POC Glucose 330(H) 65 - 99 mg/dL 11/15/2024 8:15 PM EST Blood specimen / Unknown 11/15/2024 8:14 PM EST 11/15/2024 8:15 PM EST Dallas Camejo MD POINT OF CARE TEST O RDERALUCILLE Performing Organization Address City/[facility]/ZIP Co de Phone Number [facility] BLOOD BANK PRODUCT ORDERABLES Performing Organization Address City/[facility]/ZIP Co de Phone Number HOSPITAL LAB See Below * Phosphorus (AM) (11/15/2024 8:08 AM EST) Phosphorus 4.3 2.7 - 4.5 mg/dL 11/15/2024 9:21 AM EST [facility] Blood (Plasma/Serum) 11/15/2024 8:08 AM EST 11/15/2024 8:57 AM EST Maddison Villalpando MD LAB BLOOD ORDERABLES Performing Organization Address [facility] [place] [address], [place] [address] * Magnesium (AM) (11/15/2024 8:08 AM EST) Magnesium 2.1 1.6 - 2.7 mg/dL 11/15/2024 9:21 AM EST [facility] Blood (Plasma/Serum) 11/15/2024 8:08 AM EST 11/15/2024 8:57 AM EST Maddison Villalpando MD LAB BLOOD ORDERABLES Performing Organization Address [facility] [place] [address], [place] [address] * (ABNORMAL) Basic Metabolic Panel (AM) (11/15/2024 8:08 AM EST) Glucose 218(H) 65 - 99 mg/dL 11/15/2024 9:21 AM [facility] Comment:Fasting: <100 mg/dL, Non-Fasting: <200 mg/dL (ADA 2004) Blood Urea Nitrogen (BUN) 59(H) 8 - 21 mg/dL 11/15/2024 9:21 AM [facility] Creatinine 1.8(H) 0.5 - 1.3 mg/dL 11/15/2024 9:21 AM [facility] eGFR 42(L) >59 11/15/2024 9:21 AM [facility] Comment:CKD-EPI (2020) in mL /min/1.73 sq meters. Sodium 131(L) 136 - 145 mmol/L 11/15/2024 9:21 AM [facility] Potassium 3.9 3.4 - 5.3 mmol/L 11/15/2024 9:21 AM [facility] Chloride 85(L) 98 - 107 mmol/L 11/15/2024 9:21 AM [facility] CO2 34(H) 22 - 33 mmol/L 11/15/2024 9:21 AM [facility] Anion Gap 12 7 - 17 11/15/2024 9:21 AM [facility] Calcium 9.4 8.7 - 10.5 mg/dL 11/15/2024 9:21 AM [facility] BUN/Creatinine Ratio 33(H) 10.0 - 25.0 Ratio 11/15/2024 9:21 AM [facility] Blood (Plasma/Serum) 11/15/2024 8:08 AM EST 11/15/2024 8:57 AM EST Maddison Villalpando MD LAB BLOOD ORDERABLES [facility] [address] [place] [address], [facility] [address] [place] [address] * (ABNORMAL) Complete Blood Count WITHOUT Differential - in AM (11/15/2024 8:08 AM EST) White Blood Cell Count 11.8(H) 4.0 - 11.0 Thou/uL 11/15/2024 9:06 AM [facility] Platelet Count 485(H) 150 - 450 Thou/uL 11/15/2024 9:06 AM [facility] Hemoglobin 8.9(L) 13.0 - 17.7 g/dL 11/15/2024 9:06 AM [facility] Hematocrit 28.9(L) 39.0 - 54.0 % 11/15/2024 9:06 AM [facility] Red Blood Cell Count 3.27(L) 4.50 - 6.20 Mil/uL 11/15/2024 9:06 AM [facility] MCV 88 80 - 100 fL 11/15/2024 9:06 AM [facility] MCH 27.2 27.0 - 31.0 pg 11/15/2024 9:06 AM [facility] MCHC 30.8 30.0 - 36.0 g/dL 11/15/2024 9:06 AM [facility] RDW 16.8(H) 11.5 - 14.5 % 11/15/2024 9:06 AM [facility] MPV 10.4 7.5 - 12.5 fL 11/15/2024 9:06 AM [facility] Blood Blood specimen / Unknown 11/15/2024 8:08 AM EST 11/15/2024 8:57 AM EST Maddison Villalpando MD LAB BLOOD ORDERABLES Performing Organization Address City/[facility] [place] [address], [place] [address] * (ABNORMAL) proBNP, N-terminal (11/15/2024 8:08 AM EST) proBNP, N-terminal 429(H) <125 pg/mL 11/15/2024 9:21 AM [facility] Blood Plasma specimen / Unknown 11/15/2024 8:08 AM EST 11/15/2024 8:57 AM EST Valencia Lau APRN LAB BLOOD ORDERAB LES Performing Organization Address City/[facility] Co de Phone Number [address] [address], [address] [address] * (ABNORMAL) POCT Glucose, Fingerstick (11/15/2024 7:36 AM EST) POC Glucose 230(H) 65 - 99 mg/dL 11/15/2024 7:54 AM EST Blood specimen / Unknown 11/15/2024 7:36 AM EST 11/15/2024 7:54 AM EST Dallas Camejo MD POINT OF CARE TEST O RDERALUCILLE Performing Organization Address [facility] Number [facility] LAB See Below * (ABNORMAL) POCT Glucose, Fingerstick (11/14/2024 7:51 PM EST) POC Glucose 252(H) 65 - 99 mg/dL 11/14/2024 7:54 PM EST Blood specimen / Unknown 11/14/2024 7:51 PM EST 11/14/2024 7:54 PM EST Dallas Camejo MD POINT OF CARE TEST O RDERALUCILLE Performing Organization Address [facility] Phone Number [facility] LAB See Below * (ABNORMAL) POCT Glucose, Fingerstick (11/14/2024 4:10 PM EST) POC Glucose 237(H) 65 - 99 mg/dL 11/14/2024 4:15 PM EST Blood specimen / Unknown 11/14/2024 4:10 PM EST 11/14/2024 4:15 PM EST Dallas Camejo MD POINT OF CARE TEST O RDERALUCILLE Performing Organization Address [facility] Co de Phone Number [facility] [...] 4.0 - 11.0 Thou/uL 11/14/2024 11:21 AM [facility] Platelet Count 471(H) 150 - 450 Thou/uL 11/14/2024 11:21 AM [facility] Hemoglobin 8.9(L) 13.0 - 17.7 g/dL 11/14/2024 11:21 AM [facility] Hematocrit 28.9(L) 39.0 - 54.0 % 11/14/2024 11:21 AM [facility] Red Blood Cell Count 3.25(L) 4.50 - 6.20 Mil/uL 11/14/2024 11:21 AM [facility] MCV 89 80 - 100 fL 11/14/2024 11:21 AM [facility] MCH 27.4 27.0 - 31.0 pg 11/14/2024 11:21 AM [facility] MCHC 30.8 30.0 - 36.0 g/dL 11/14/2024 11:21 AM [facility] RDW 17.1(H) 11.5 - 14.5 % 11/14/2024 11:21 AM [facility] MPV 10.3 7.5 - 12.5 fL 11/14/2024 11:21 AM [facility] Blood Blood specimen / Unknown 11/14/2024 10:31 AM EST 11/14/2024 11:15 AM EST Maddison Villalpando MD LAB BLOOD ORDERABLES Performing Organization Address [facility]/ZIP [place] [address], [place] [address] * (ABNORMAL) Phosphorus (Routine) (11/14/2024 10:31 AM EST) Phosphorus 6.1(H) 2.7 - 4.5 mg/dL 11/14/2024 11:39 AM [facility] Blood (Plasma/Serum) 11/14/2024 10:31 AM EST 11/14/2024 11:15 AM EST Maddison Villalpando MD [place] [address], [place] [address] * Magnesium (Routine) (11/14/2024 10:31 AM EST) Magnesium 2.1 1.6 - 2.7 mg/dL 11/14/2024 11:39 AM [facility] Blood (Plasma/Serum) 11/14/2024 10:31 AM EST 11/14/2024 11:15 AM EST Maddison Villalpando MD [place] [address], [place] [address] * (ABNORMAL) Basic Metabolic Panel (STAT) (11/14/2024 10:31 AM EST) Glucose 319(H) 65 - 99 mg/dL 11/14/2024 11:39 AM [facility] Comment:Fasting: <100 mg/dL, Non-Fasting: <200 mg/dL (ADA 2004) Blood Urea Nitrogen (BUN) 65(H) 8 - 21 mg/dL 11/14/2024 11:39 AM [facility] Creatinine 2.1(H) 0.5 - 1.3 mg/dL 11/14/2024 11:39 AM [facility] eGFR 35(L) >59 11/14/2024 11:39 AM EST [facility] Comment:CKD-EPI (2020) in mL /min/1.73 sq meters. Sodium 132(L) 136 - 145 mmol/L 11/14/2024 11:39 AM [facility] Potassium 4.0 3.4 - 5.3 mmol/L 11/14/2024 11:39 AM [facility] Chloride 85(L) 98 - 107 mmol/L 11/14/2024 11:39 AM [facility] CO2 34(H) 22 - 33 mmol/L 11/14/2024 11:39 AM [facility] Anion Gap 13 7 - 17 11/14/2024 11:39 AM [facility] Calcium 9.4 8.7 - 10.5 mg/dL 11/14/2024 11:39 AM [facility] BUN/Creatinine Ratio 31(H) 10.0 - 25.0 Ratio 11/14/2024 11:39 AM [facility] Blood (Plasma/Serum) 11/14/2024 10:31 AM EST 11/14/2024 11:15 AM EST Maddison Villalpando MD LAB [place] [address], [place] [address] * (ABNORMAL) POCT Glucose, Fingerstick (11/14/2024 7:45 [...] CARE TEST O RDERABLES Performing Organization Address [facility] LAB See Below * (ABNORMAL) POCT Glucose, Fingerstick (11/13/2024 9:19 PM EST) POC Glucose 366(H) 65 - 99 mg/dL 11/13/2024 9:20 PM EST Blood specimen / Unknown 11/13/2024 9:19 PM EST 11/13/2024 9:20 PM EST Dallas Camejo MD POINT OF CARE TEST O RDERALUCILLE Performing Organization Address [facility] LAB See Below * (ABNORMAL) POCT Glucose, Fingerstick (11/13/2024 4:45 PM EST) POC Glucose 196(H) 65 - 99 mg/dL 11/13/2024 4:50 PM EST Blood specimen / Unknown 11/13/2024 4:45 PM EST 11/13/2024 4:50 PM EST Dallas Camejo MD POINT OF CARE TEST O RDERALUCILLE Performing Organization Address [facility] Number [facility] LAB See Below * (ABNORMAL) POCT Glucose, Fingerstick (11/13/2024 11:54 AM EST) POC Glucose 232(H) 65 - 99 mg/dL 11/13/2024 11:55 AM EST Blood specimen / Unknown 11/13/2024 11:54 AM EST 11/13/2024 11:55 AM EST Dallas Camejo MD POINT OF CARE TEST O RDERALUC[place]LE Performing Organization Address [facility] Number [facility] LAB See Below * (ABNORMAL) POCT Glucose, Fingerstick (11/13/2024 8:12 AM EST) POC Glucose 159(H) 65 - 99 mg/dL 11/13/2024 8:15 AM EST Blood specimen / Unknown 11/13/2024 8:12 AM EST 11/13/2024 8:15 AM EST Dallas Camejo MD POINT OF CARE TEST O RDERABLES Performing Organization Address City/[facility]/ZIP Co de Phone Number HOSPITAL LAB See Below * (ABNORMAL) proBNP, N-terminal (11/13/2024 7:30 AM EST) Pathologist [facility] proBNP, N-terminal 994(H) <125 pg/mL 11/13/2024 11:05 AM EST [facility] Plasma specimen / Unknown 11/13/2024 7:30 AM EST 11/13/2024 8:09 AM EST Maddison Villalpando MD LAB BLOOD ORDERABLES Performing Organization Address [facility] [place] [address], [place] [address] * (ABNORMAL) Phosphorus (AM) (11/13/2024 7:30 AM EST) Phosphorus 4.9(H) 2.7 - 4.5 mg/dL 11/13/2024 8:45 AM EST [facility] Blood (Plasma/Serum) 11/13/2024 7:30 AM EST 11/13/2024 8:09 AM EST Maddison Villalpando MD LAB BLOOD ORDERABLES Performing Organization Address [facility] [place] [address], [place] [address] * Magnesium (AM) (11/13/2024 7:30 AM EST) Magnesium 1.7 1.6 - 2.7 mg/dL 11/13/2024 8:45 AM EST [facility] Blood (Plasma/Serum) 11/13/2024 7:30 AM EST 11/13/2024 8:09 AM EST Maddison Villalpando MD LAB BLOOD ORDERABLES Performing Organization Address City/[facility]/ZIP Co de Phone Number [address] [address], [address] [address] * (ABNORMAL) Complete Blood Count WITHOUT Differential - in AM (11/13/2024 7:30 AM EST) Pathologist [facility] White Blood Cell Count 11.8(H) 4.0 - 11.0 Thou/uL 11/13/2024 8:28 AM [facility] Platelet Count 486(H) 150 - 450 Thou/uL 11/13/2024 8:28 AM [facility] Hemoglobin 9.2(L) 13.0 - 17.7 g/dL 11/13/2024 8:28 AM [facility] Hematocrit 29.8(L) 39.0 - 54.0 % 11/13/2024 8:28 AM [facility] Red Blood Cell Count 3.34(L) 4.50 - 6.20 Mil/uL 11/13/2024 8:28 AM [facility] MCV 89 80 - 100 fL 11/13/2024 8:28 AM [facility] MCH 27.5 27.0 - 31.0 pg 11/13/2024 8:28 AM [facility] MCHC 30.9 30.0 - 36.0 g/dL 11/13/2024 8:28 AM [facility] RDW 16.9(H) 11.5 - 14.5 % 11/13/2024 8:28 AM [facility] MPV 9.8 7.5 - 12.5 fL 11/13/2024 8:28 AM [facility] Blood Blood specimen / Unknown 11/13/2024 7:30 AM EST 11/13/2024 8:09 AM EST Maddison Villalpando MD [place] [address], [place] [address] * (ABNORMAL) Basic Metabolic Panel (AM) (11/13/2024 7:30 AM EST) Glucose 154(H) 65 - 99 mg/dL 11/13/2024 8:45 AM [facility] Comment:Fasting: <100 mg/dL, Non-Fasting: <200 mg/dL (ADA 2005) Blood Urea Nitrogen (BUN) 44(H) 8 - 21 mg/dL 11/13/2024 8:45 AM [facility] Creatinine 1.7(H) 0.5 - 1.3 mg/dL 11/13/2024 8:45 AM [facility] eGFR 45(L) >59 11/13/2024 8:45 AM [facility] Comment:CKD-EPI (2020) in mL /min/1.73 sq meters. Sodium 140 136 - 145 mmol/L 11/13/2024 8:45 AM [facility] Potassium 3.6 3.4 - 5.3 mmol/L 11/13/2024 8:45 AM [facility] Chloride 91(L) 98 - 107 mmol/L 11/13/2024 8:45 AM [facility] CO2 35(H) 22 - 33 mmol/L 11/13/2024 8:45 [facility] Anion Gap 14 7 - 17 11/13/2024 8:45 AM [facility] Calcium 9.7 8.7 - 10.5 mg/dL 11/13/2024 8:45 AM [facility] BUN/Creatinine Ratio 26(H) 10.0 - 25.0 Ratio 11/13/2024 8:45 AM [facility] Blood (Plasma/Serum) 11/13/2024 7:30 AM EST 11/13/2024 8:09 AM EST Maddison Villalpando MD [place] [address], [place] [address] * (ABNORMAL) POCT Glucose, Fingerstick (11/13/2024 3:59 AM EST) POC Glucose 156(H) 65 - 99 mg/dL 11/13/2024 4:03 AM EST Blood specimen / Unknown 11/13/2024 3:59 AM EST 11/13/2024 4:03 AM EST Dallas Camejo MD POINT OF CARE TEST O RDGHANSHYAM Performing Organization Address [facility] Phone Number [facility] LAB See Below * (ABNORMAL) POCT Glucose, Fingerstick (11/13/2024 12:27 AM EST) POC Glucose 139(H) 65 - 99 mg/dL 11/13/2024 12:31 AM EST Blood specimen / Unknown 11/13/2024 12:27 AM EST 11/13/2024 12:31 AM EST Dallas Camejo MD POINT OF CARE TEST O JOSEPH Performing Organization Address [facility] Phone Number [facility] See Below * (ABNORMAL) POCT Glucose, Fingerstick (11/12/2024 8:32 PM EST) POC Glucose 248(H) 65 - 99 mg/dL 11/12/2024 8:33 PM EST Blood specimen / Unknown 11/12/2024 8:32 PM EST 11/12/2024 8:33 PM EST Dallas Camejo MD POINT OF CARE TEST O JOSEPH Performing Organization Address [facility] Phone Number HOSPITAL LAB See Below [...] * PM DUAL LEAD EVAL WITH PROGRAMMING, [id number] (11/12/2024 1:15 PM EST) Date Time Interrogation Session [id number] [phone] PACEART Implantable Pulse Generator Grating Machine Operator [employer] PACEART Implantable Pulse Generator Model [id number] [employer] PACEART Implantable Pulse Generator Serial Number [id number] PACEART Implantable Pulse Generator Type Pacemaker PACEART [...] reset 99.97 % PACEART Otf Statistic AP HYDRAULIC CONTROLS TECHNICIAN Percent 76.74 % PACEART Otf Statistic HYDRAULIC CONTROLS TECHNICIAN Percent 23.23 % PACEART Otf Statistic AP VS Percent 0.01 % PACEART Otf Statistic VS Percent 0.01 % PACEART AT/AF [place] Percent 0 % PACEART Episode Statistic Recent [...] [facility] See Below * Phosphorus (11/12/2024 5:00 AM EST) Phosphorus 4.5 2.7 - 4.5 mg/dL 11/12/2024 6:01 AM [facility] Blood (Plasma/Serum) 11/12/2024 5:00 AM EST 11/12/2024 5:22 AM EST Luis Degroot MD LAB BLOOD ORDERABLES Performing Organization Address City/[facility]/[place] [address], [place] [address] * Magnesium (11/12/2024 5:00 AM EST) Pathologist [facility] Magnesium 1.8 1.6 - 2.7 mg/dL 11/12/2024 6:01 AM [facility] Blood (Plasma/Serum) 11/12/2024 5:00 AM EST 11/12/2024 5:22 AM EST Luis Degroot MD LAB BLOOD ORDERABLES Performing Organization Address [facility] [place] [address], [place] [address] * (ABNORMAL) Complete Blood Count, WITHOUT Differential (routine) (11/12/2024 5:00 AM EST) Pathologist [facility] White Blood Cell Count 11.1(H) 4.0 - 11.0 Thou/uL 11/12/2024 5:47 AM [facility] Platelet Count 456(H) 150 - 450 Thou/uL 11/12/2024 5:47 AM [facility] Hemoglobin 8.1(L) 13.0 - 17.7 g/dL 11/12/2024 5:47 AM [facility] Hematocrit 26.3(L) 39.0 - 54.0 % 11/12/2024 5:47 AM [facility] Red Blood Cell Count 2.94(L) 4.50 - 6.20 Mil/uL 11/12/2024 5:47 AM [facility] MCV 90 80 - 100 fL 11/12/2024 5:47 AM [facility] MCH 27.6 27.0 - 31.0 pg 11/12/2024 5:47 AM [facility] MCHC 30.8 30.0 - 36.0 g/dL 11/12/2024 5:47 AM [facility] RDW 16.9(H) 11.5 - 14.5 % 11/12/2024 5:47 AM [facility] MPV 9.8 7.5 - 12.5 fL 11/12/2024 5:47 AM [facility] Blood Blood specimen / Unknown 11/12/2024 5:00 AM EST 11/12/2024 5:22 AM EST Luis Degroot MD LAB BLOOD ORDERABLES Performing Organization Address City/State/[facility] [place] [address], [place] [address] * (ABNORMAL) Basic Metabolic Panel (11/12/2024 5:00 AM EST) Glucose 126(H) 65 - 99 mg/dL 11/12/2024 6:01 AM [facility] Comment:Fasting: <100 mg/dL, Non-Fasting: <200 mg/dL (ADA 2004) Blood Urea Nitrogen (BUN) 44(H) 8 - 21 mg/dL 11/12/2024 6:01 AM [facility] Creatinine 1.6(H) 0.5 - 1.3 mg/dL 11/12/2024 6:01 AM [facility] eGFR 48(L) >59 11/12/2024 6:01 AM [facility] Comment:CKD-EPI (2020) in mL /min/1.73 sq meters. Sodium 138 136 - 145 mmol/L 11/12/2024 6:01 AM [facility] Potassium 3.7 3.4 - 5.3 mmol/L 11/12/2024 6:01 AM [facility] Chloride 96(L) 98 - 107 mmol/L 11/12/2024 6:01 AM [facility] CO2 30 22 - 33 mmol/L 11/12/2024 6:01 AM EST [facility] Anion Gap 12 7 - 17 11/12/2024 6:01 AM [facility] Calcium 9.1 8.7 - 10.5 mg/dL 11/12/2024 6:01 AM [facility] BUN/Creatinine Ratio 28(H) 10.0 - 25.0 Ratio 11/12/2024 6:01 AM [facility] Blood (Plasma/Serum) 11/12/2024 5:00 AM EST 11/12/2024 5:22 AM EST Luis Degroot MD [place] [address], [place] [address] * (ABNORMAL) POCT Glucose, Fingerstick (11/12/2024 4:51 [...] CARE TEST O JOSEPH Performing Organization Address [facility] LAB See Below * (ABNORMAL) POCT Glucose, Fingerstick (11/11/2024 9:17 PM EST) POC Glucose 224(H) 65 - 99 mg/dL 11/11/2024 9:21 PM EST Blood specimen / Unknown 11/11/2024 9:17 PM EST 11/11/2024 9:21 PM EST Dallas Camejo MD POINT OF CARE TEST O JOSEPH Performing Organization Address [facility] LAB See Below * (ABNORMAL) POCT Glucose, Fingerstick (11/11/2024 5:06 PM EST) POC Glucose 149(H) 65 - 99 mg/dL 11/11/2024 5:37 PM EST Blood specimen / Unknown 11/11/2024 5:06 PM EST 11/11/2024 5:37 PM EST Dallas Camejo MD POINT OF CARE TEST O CRISTIANERALUCILLE Performing Organization Address [facility] Number [facility] LAB See Below * PM DUAL LEAD EVAL WITH PROGRAMMING, [id number] (11/11/2024 4:33 PM EST) Date Time Interrogation Session [id number] [phone] PACEART Implantable Pulse Generator Grating Machine Operator [employer] PACEART Implantable Pulse Generator Model [id number] Jaime ESCOBAR PACEART Implantable Pulse Generator Serial Number [id number] PACEART Implantable Pulse Generator Type Pacemaker PACEART [...] reset 89.06 % PACEART Otf Statistic AP HYDRAULIC CONTROLS TECHNICIAN Percent 62.37 % PACEART Otf Statistic HYDRAULIC CONTROLS TECHNICIAN Percent 26.83 % PACEART Otf Statistic AP VS Percent 8.97 % PACEART Otf Statistic VS Percent 1.83 % PACEART AT/AF [place] Percent 0 % PACEART Episode Statistic Recent [...] ordered for function. Presenting rhythm: AP / HYDRAULIC CONTROLS TECHNICIAN @ 60 bpm. Underlying rhythm: SB @ [...] inserted atraumatically into the esophagus by the circuit judge. With the patient in a supine position [...] - 4.5 mg/dL 11/11/2024 3:00 PM EST [facility] Blood (Plasma/Serum) 11/11/2024 2:00 PM EST 11/11/2024 2:19 PM EST Nani Hollis PA-C LAB BLOOD ORDERABLES Performing Organization Address City/[facility]/[place] [address], [place] [address] * Magnesium (11/11/2024 2:00 PM EST) Magnesium 1.8 1.6 - 2.7 mg/dL 11/11/2024 3:00 PM [facility] Blood (Plasma/Serum) 11/11/2024 2:00 PM EST 11/11/2024 2:19 PM EST Nani Hollis PA-C LAB BLOOD ORDERABLES Performing Organization Address [facility] [place] [address], [place] [address] * (ABNORMAL) Basic Metabolic Panel (11/11/2024 2:00 PM EST) Glucose 124(H) 65 - 99 mg/dL 11/11/2024 3:00 PM [facility] Comment:Fasting: <100 mg/dL, Non-Fasting: <200 mg/dL (ADA 2004) Blood Urea Nitrogen (BUN) 49(H) 8 - 21 mg/dL 11/11/2024 3:00 PM [facility] Creatinine 1.7(H) 0.5 - 1.3 mg/dL 11/11/2024 3:00 PM [facility] eGFR 45(L) >59 11/11/2024 3:00 PM [facility] Comment:CKD-EPI (2020) in mL /min/1.73 sq meters. Sodium 139 136 - 145 mmol/L 11/11/2024 3:00 PM [facility] Potassium 3.4 3.4 - 5.3 mmol/L 11/11/2024 3:00 PM [facility] Chloride 97(L) 98 - 107 mmol/L 11/11/2024 3:00 PM [facility] CO2 30 22 - 33 mmol/L 11/11/2024 3:00 PM EST [facility] Anion Gap 12 7 - 17 11/11/2024 3:00 PM EST [facility] Calcium 9.0 8.7 - 10.5 mg/dL 11/11/2024 3:00 PM [facility] BUN/Creatinine Ratio 29(H) 10.0 - 25.0 Ratio 11/11/2024 3:00 PM EST [facility] Blood (Plasma/Serum) 11/11/2024 2:00 PM EST 11/11/2024 2:19 PM EST Nani Hollis PA-C [place] [address], [place] [address] * (ABNORMAL) POCT Glucose, Fingerstick (11/11/2024 11:53 [...] (ABNORMAL) proBNP, N-terminal (11/11/2024 2:00 AM EST) [facility] proBNP, N-terminal 2,964(H) <125 pg/mL 11/11/2024 3:18 AM [facility] Blood Plasma specimen / Unknown 11/11/2024 2:00 AM EST 11/11/2024 2:53 AM EST Nani Hollis PA-C LAB BLOOD ORDERABLES Performing Organization Address [facility]/[place] [address], [place] [address] * (ABNORMAL) Complete Blood Count, WITHOUT Differential (routine) (11/11/2024 2:00 AM EST) [facility] White Blood Cell Count 13.2(H) 4.0 - 11.0 Thou/uL 11/11/2024 2:57 AM [facility] Platelet Count 460(H) 150 - 450 Thou/uL 11/11/2024 2:57 AM [facility] Hemoglobin 8.2(L) 13.0 - 17.7 g/dL 11/11/2024 2:57 AM [facility] Hematocrit 26.1(L) 39.0 - 54.0 % 11/11/2024 2:57 AM [facility] Red Blood Cell Count 2.91(L) 4.50 - 6.20 Mil/uL 11/11/2024 2:57 AM [facility] MCV 90 80 - 100 fL 11/11/2024 2:57 AM [facility] MCH 28.2 27.0 - 31.0 pg 11/11/2024 2:57 AM [facility] MCHC 31.4 30.0 - 36.0 g/dL 11/11/2024 2:57 AM [facility] RDW 17.0(H) 11.5 - 14.5 % 11/11/2024 2:57 AM [facility] MPV 9.8 7.5 - 12.5 fL 11/11/2024 2:57 AM [facility] Blood Blood specimen / Unknown 11/11/2024 2:00 AM EST 11/11/2024 2:53 AM EST Nani PATTON-C LAB BLOOD ORDERABLES Performing Organization Address City/[facility]/[place] [address], [place] [address] * (ABNORMAL) Phosphorus (11/11/2024 2:00 AM EST) Phosphorus 4.7(H) 2.7 - 4.5 mg/dL 11/11/2024 3:18 AM [facility] Blood (Plasma/Serum) 11/11/2024 2:00 AM EST 11/11/2024 2:53 AM EST Nani PATTON-Annemarie LAB BLOOD ORDERABLES Performing Organization Address City/[facility]/[place] [address], [place] [address] * Magnesium (11/11/2024 2:00 AM EST) Magnesium 2.0 1.6 - 2.7 mg/dL 11/11/2024 3:18 AM [facility] Blood (Plasma/Serum) 11/11/2024 2:00 AM EST 11/11/2024 2:53 AM EST Nani PATTON-C [place] [address], [place] [address] * (ABNORMAL) Basic Metabolic Panel (11/11/2024 2:00 AM EST) Glucose 151(H) 65 - 99 mg/dL 11/11/2024 3:18 AM [facility] Comment:Fasting: <100 mg/dL, Non-Fasting: <200 mg/dL (ADA 2004) Blood Urea Nitrogen (BUN) 56(H) 8 - 21 mg/dL 11/11/2024 3:18 AM [facility] Creatinine 2.0(H) 0.5 - 1.3 mg/dL 11/11/2024 3:18 AM [facility] eGFR 37(L) >59 11/11/2024 3:18 AM [facility] Comment:CKD-EPI (2020) in mL /min/1.73 sq meters. Sodium 137 136 - 145 mmol/L 11/11/2024 3:18 AM [facility] Potassium 3.8 3.4 - 5.3 mmol/L 11/11/2024 3:18 AM [facility] Chloride 99 98 - 107 mmol/L 11/11/2024 3:18 AM [facility] CO2 27 22 - 33 mmol/L 11/11/2024 3:18 AM [facility] Anion Gap 11 7 - 17 11/11/2024 3:18 AM [facility] Calcium 8.7 8.7 - 10.5 mg/dL 11/11/2024 3:18 AM [facility] BUN/Creatinine Ratio 28(H) 10.0 - 25.0 Ratio 11/11/2024 3:18 AM [facility] Blood (Plasma/Serum) 11/11/2024 2:00 AM EST 11/11/2024 2:53 AM EST Nani Hollis PA-C [place] [address], [place] [address] * (ABNORMAL) Hepatic Function Panel (Routine) (11/11/2024 2:00 AM EST) Alkaline Phosphatase 207(H) 45 - 128 U/L 11/11/2024 3:18 AM [facility] Aspartate Aminotrans (AST) 24 10 - 55 U/L 11/11/2024 3:18 AM [facility] Alanine Aminotrans (ALT) 14 10 - 55 U/L 11/11/2024 3:18 AM [facility] Bilirubin, Total 0.2 0.2 - 1.0 mg/dL 11/11/2024 3:18 AM [facility] Protein, Total 6.4 6.3 - 8.3 g/dL 11/11/2024 3:18 AM [facility] Albumin 2.6(L) 3.4 - 4.8 g/dL 11/11/2024 3:18 AM [facility] Bilirubin, Direct 0.1 0 - 0.2 mg/dL 11/11/2024 3:18 AM [facility] Globulin 3.8 1.5 - 3.9 g/dL 11/11/2024 3:18 AM [facility] Albumin/Globulin Ratio 0.7(L) 1.0 - 3.0 Ratio 11/11/2024 3:18 AM [facility] Blood (Plasma/Serum) 11/11/2024 2:00 AM EST 11/11/2024 2:53 AM EST Nani Hollis PA-C LAB BLOOD ORDERABLES Performing Organization Address [facility] [place] [address], [place] [address] * Creatine Kinase (CK) (11/11/2024 2:00 AM EST) Creatine Kinase (CK) 37 24 - 204 U/L 11/11/2024 3:18 AM [facility] Blood (Plasma/Serum) 11/11/2024 2:00 AM EST 11/11/2024 2:53 AM EST Nani Hollis PA-C LAB BLOOD ORDERABLES [address] [address], [address] [address] * (ABNORMAL) POCT Glucose, Fingerstick (11/10/2024 7:55 [...] CARE TEST O RDERABLES Performing Organization Address City/[facility]/ZIP Co de Phone Number HOSPITAL LAB See Below * (ABNORMAL) Phosphorus (11/10/2024 12:03 PM EST) Phosphorus 5.2(H) 2.7 - 4.5 mg/dL 11/10/2024 1:06 PM [facility] Blood (Plasma/Serum) 11/10/2024 12:03 PM EST 11/10/2024 12:27 PM EST Nani Hollis PA-C LAB BLOOD ORDERABLES Performing Organization Address [facility] [place] [address], [place] [address] * Magnesium (11/10/2024 12:03 PM EST) Magnesium 2.0 1.6 - 2.7 mg/dL 11/10/2024 1:06 PM [facility] Blood (Plasma/Serum) 11/10/2024 12:03 PM EST 11/10/2024 12:27 PM EST Nani Hollis PA-C LAB BLOOD ORDERABLES Performing Organization Address [facility] [place] [address], [place] [address] * (ABNORMAL) Basic Metabolic Panel (11/10/2024 12:03 PM EST) Glucose 135(H) 65 - 99 mg/dL 11/10/2024 1:06 PM [facility] Comment:Fasting: <100 mg/dL, Non-Fasting: <200 mg/dL (ADA 2005) Blood Urea Nitrogen (BUN) 57(H) 8 - 21 mg/dL 11/10/2024 1:06 PM [facility] Creatinine 1.9(H) 0.5 - 1.3 mg/dL 11/10/2024 1:06 PM [facility] eGFR 39(L) >59 11/10/2024 1:06 PM [facility] Comment:CKD-EPI (2020) in mL /min/1.73 sq meters. Sodium 137 136 - 145 mmol/L 11/10/2024 1:06 PM [facility] Potassium 3.8 3.4 - 5.3 mmol/L 11/10/2024 1:06 PM [facility] Chloride 101 98 - 107 mmol/L 11/10/2024 1:06 PM [facility] CO2 25 22 - 33 mmol/L 11/10/2024 1:06 PM [facility] Anion Gap 11 7 - 17 11/10/2024 1:06 PM [facility] Calcium 8.5(L) 8.7 - 10.5 mg/dL 11/10/2024 1:06 PM [facility] BUN/Creatinine Ratio 30(H) 10.0 - 25.0 Ratio 11/10/2024 1:06 PM [facility] Blood (Plasma/Serum) 11/10/2024 12:03 PM EST 11/10/2024 12:27 PM EST Nani Hollis PA-C LAB BLOOD ORDERABLES Performing Organization Address City/[facility]/[place] [address], [place] [address] * (ABNORMAL) POCT Glucose, Fingerstick (11/10/2024 11:36 [...] CARE TEST O RDERALUCILLE Performing Organization Address City/[facility]/ZIP Co de Phone Number [facility] LAB See Below * (ABNORMAL) POCT Glucose, Fingerstick (11/10/2024 2:02 AM EST) POC Glucose 126(H) 65 - 99 mg/dL 11/10/2024 2:03 AM EST Blood specimen / Unknown 11/10/2024 2:02 AM EST 11/10/2024 2:03 AM EST Dallas Camejo MD POINT OF CARE TEST O JOSEPH Performing Organization Address City/[facility] Co de Phone Number [facility] LAB See Below * (ABNORMAL) Phosphorus (11/10/2024 12:04 AM EST) Phosphorus 5.6(H) 2.7 - 4.5 mg/dL 11/10/2024 1:09 AM EST [facility] Blood (Plasma/Serum) 11/10/2024 12:04 AM EST 11/10/2024 12:33 AM EST Claire Garibay PA-C LAB BLOOD ORDERABLES Performing Organization Address City/[facility] Co de Phone Number [address] [address], [address] [address] * Magnesium (11/10/2024 12:04 AM EST) Magnesium 2.1 1.6 - 2.7 mg/dL 11/10/2024 1:09 AM EST [facility] Blood (Plasma/Serum) 11/10/2024 12:04 AM EST 11/10/2024 12:33 AM EST Claire Garibay PA-C [place] [address], [place] [address] * (ABNORMAL) Basic Metabolic Panel (11/10/2024 12:04 AM EST) Glucose 122(H) 65 - 99 mg/dL 11/10/2024 1:09 AM [facility] Comment:Fasting: <100 mg/dL, Non-Fasting: <200 mg/dL (ADA 2004) Blood Urea Nitrogen (BUN) 56(H) 8 - 21 mg/dL 11/10/2024 1:09 AM [facility] Creatinine 2.0(H) 0.5 - 1.3 mg/dL 11/10/2024 1:09 AM [facility] eGFR 37(L) >59 11/10/2024 1:09 AM [facility] Comment:CKD-EPI (2020) in mL /min/1.73 sq meters. Sodium 135(L) 136 - 145 mmol/L 11/10/2024 1:09 AM [facility] Potassium 3.8 3.4 - 5.3 mmol/L 11/10/2024 1:09 AM [facility] Chloride 100 98 - 107 mmol/L 11/10/2024 1:09 AM [facility] CO2 24 22 - 33 mmol/L 11/10/2024 1:09 AM [facility] Anion Gap 11 7 - 17 11/10/2024 1:09 AM [facility] Calcium 8.2(L) 8.7 - 10.5 mg/dL 11/10/2024 1:09 AM [facility] BUN/Creatinine Ratio 28(H) 10.0 - 25.0 Ratio 11/10/2024 1:09 AM [facility] Blood (Plasma/Serum) 11/10/2024 12:04 AM EST 11/10/2024 12:33 AM EST Claire Garibay PA-C LAB BLOOD ORDERABLES [facility] [address] [place] [address], [place] [address] * (ABNORMAL) COMPLETE BLOOD COUNT, WITHOUT DIFFERENTIAL (11/10/2024 12:04 AM EST) Pathologist [facility] White Blood Cell Count 13.5(H) 4.0 - 11.0 Thou/uL 11/10/2024 12:47 AM [facility] Platelet Count 445 150 - 450 Thou/uL 11/10/2024 12:47 AM [facility] Hemoglobin 7.6(L) 13.0 - 17.7 g/dL 11/10/2024 12:47 AM [facility] Hematocrit 25.2(L) 39.0 - 54.0 % 11/10/2024 12:47 AM [facility] Red Blood Cell Count 2.75(L) 4.50 - 6.20 Mil/uL 11/10/2024 12:47 AM [facility] MCV 92 80 - 100 fL 11/10/2024 12:47 AM [facility] MCH 27.6 27.0 - 31.0 pg 11/10/2024 12:47 AM [facility] MCHC 30.2 30.0 - 36.0 g/dL 11/10/2024 12:47 AM [facility] RDW 17.2(H) 11.5 - 14.5 % 11/10/2024 12:47 AM [facility] MPV 9.7 7.5 - 12.5 fL 11/10/2024 12:47 AM [facility] Blood Blood specimen / Unknown 11/10/2024 12:04 AM EST 11/10/2024 12:33 AM EST Claire Garibay PA-C LAB BLOOD ORDERABLES [address] [address], [address] [address] * (ABNORMAL) POCT Glucose, Fingerstick (11/09/2024 8:03 PM EST) POC Glucose 152(H) 65 - 99 mg/dL 11/09/2024 8:04 PM EST Blood specimen / Unknown 11/09/2024 8:03 PM EST 11/09/2024 8:04 PM EST Dallas Camejo MD POINT OF CARE TEST O RDERABLES Performing Organization Address [facility] Phone Number [facility] LAB See Below * (ABNORMAL) POCT Glucose, Fingerstick (11/09/2024 3:53 PM EST) POC Glucose 222(H) 65 - 99 mg/dL 11/09/2024 8:04 PM EST Blood specimen / Unknown 11/09/2024 3:53 PM EST 11/09/2024 8:04 PM EST Dallas Camejo MD POINT OF CARE TEST O RDERALUCILLE Performing Organization Address [facility] Phone Number [facility] LAB See Below * (ABNORMAL) POCT Glucose, Fingerstick (11/09/2024 11:47 AM EST) POC Glucose 146(H) 65 - 99 mg/dL 11/09/2024 11:53 AM EST Blood specimen / Unknown 11/09/2024 11:47 AM EST 11/09/2024 11:53 AM EST Dallas Camejo MD POINT OF CARE TEST O RDERALUCILLE Performing Organization Address [facility] Phone Number [facility] LAB See Below * (ABNORMAL) proBNP, N-terminal (11/09/2024 10:04 AM EST) proBNP, N-terminal 4,654(H) <125 pg/mL 11/09/2024 12:58 PM EST [facility] Plasma specimen / Unknown 11/09/2024 10:04 AM EST 11/09/2024 10:25 AM EST Claire Garibay PA-C LAB BLOOD ORDERABLES Performing Organization Address [facility]/State/[facility] Co de Phone Number [facility] [address] [place] [address], [facility] [address] [facility] [address] * (ABNORMAL) Procalcitonin (11/09/2024 10:04 AM EST) Procalcitonin 0.40(H) <0.09 ng/mL 11/09/2024 11:01 AM EST [facility] Comment: (NOTE) ?Procalcitonin (PCT) Guided Antibiotic [...] PA-C LAB BLOOD ORDERABLES Performing Organization Address [facility] [place] [address], [place] [address] * (ABNORMAL) POCT Glucose, Fingerstick (11/09/2024 7:29 AM EST) POC Glucose 153(H) 65 - 99 mg/dL 11/09/2024 7:33 AM EST Blood specimen / Unknown 11/09/2024 7:29 AM EST 11/09/2024 7:33 AM EST Dallas Camejo MD POINT OF CARE TEST O RDERABLES Performing Organization Address [facility] de Phone Number HOSPITAL LAB See Below * (ABNORMAL) Phosphorus (11/09/2024 1:50 AM EST) Phosphorus 5.2(H) 2.7 - 4.5 mg/dL 11/09/2024 2:56 AM EST [facility] Blood (Plasma/Serum) 11/09/2024 1:50 AM EST 11/09/2024 2:31 AM EST Shay Martin MD LAB BLOOD ORDERAB LES Performing Organization Address [facility] Co de Phone Number [facility] [address] [place] [address], [facility] [address] [place] [address] * Magnesium (11/09/2024 1:50 AM EST) Pathologist [facility] Magnesium 2.3 1.6 - 2.7 mg/dL 11/09/2024 2:56 AM [facility] Blood (Plasma/Serum) 11/09/2024 1:50 AM EST 11/09/2024 2:31 AM EST Shay Martin MD LAB BLOOD ORDERAB LES [facility] [address] [place] [address], [place] [address] * (ABNORMAL) COMPLETE BLOOD COUNT, WITHOUT DIFFERENTIAL (11/09/2024 1:50 AM EST) [facility] White Blood Cell Count 11.9(H) 4.0 - 11.0 Thou/uL 11/09/2024 2:36 AM [facility] Platelet Count 405 150 - 450 Thou/uL 11/09/2024 2:36 AM [facility] Hemoglobin 7.7(L) 13.0 - 17.7 g/dL 11/09/2024 2:36 AM [facility] Hematocrit 24.9(L) 39.0 - 54.0 % 11/09/2024 2:36 AM [facility] Red Blood Cell Count 2.72(L) 4.50 - 6.20 Mil/uL 11/09/2024 2:36 AM [facility] MCV 92 80 - 100 fL 11/09/2024 2:36 AM [facility] MCH 28.3 27.0 - 31.0 pg 11/09/2024 2:36 AM [facility] MCHC 30.9 30.0 - 36.0 g/dL 11/09/2024 2:36 AM [facility] RDW 17.1(H) 11.5 - 14.5 % 11/09/2024 2:36 AM [facility] MPV 9.6 7.5 - 12.5 fL 11/09/2024 2:36 AM [facility] Blood Blood specimen / Unknown 11/09/2024 1:50 AM EST 11/09/2024 2:31 AM EST Shay Martin MD LAB BLOOD ORDERAB LES Performing Organization Address City/State/[facility] Co de Phone Number [address] [address], [address] [address] * (ABNORMAL) Basic Metabolic Panel (11/09/2024 1:50 AM EST) Glucose 117(H) 65 - 99 mg/dL 11/09/2024 2:56 AM [facility] Comment:Fasting: <100 mg/dL, Non-Fasting: <200 mg/dL (ADA 2004) Blood Urea Nitrogen (BUN) 46(H) 8 - 21 mg/dL 11/09/2024 2:56 AM [facility] Creatinine 1.8(H) 0.5 - 1.3 mg/dL 11/09/2024 2:56 AM [facility] eGFR 42(L) >59 11/09/2024 2:56 AM [facility] Comment:CKD-EPI (2020) in mL /min/1.73 sq meters. Sodium 139 136 - 145 mmol/L 11/09/2024 2:56 AM [facility] Potassium 3.6 3.4 - 5.3 mmol/L 11/09/2024 2:56 AM [facility] Chloride 101 98 - 107 mmol/L 11/09/2024 2:56 AM [facility] CO2 25 22 - 33 mmol/L 11/09/2024 2:56 AM [facility] Anion Gap 13 7 - 17 11/09/2024 2:56 AM [facility] Calcium 8.2(L) 8.7 - 10.5 mg/dL 11/09/2024 2:56 AM [facility] BUN/Creatinine Ratio 26(H) 10.0 - 25.0 Ratio 11/09/2024 2:56 AM [facility] Blood (Plasma/Serum) 11/09/2024 1:50 AM EST 11/09/2024 2:31 AM EST Shay Martin MD LAB BLOOD ORDERAB LES Performing Organization Address City/[facility] Co de Phone Number [address] [address], [address] [address] * (ABNORMAL) POCT Glucose, Fingerstick (11/09/2024 1:41 AM EST) POC Glucose 124(H) 65 - 99 mg/dL 11/09/2024 1:42 AM EST Blood specimen / Unknown 11/09/2024 1:41 AM EST 11/09/2024 1:42 AM EST Dallas Camejo MD POINT OF CARE TEST O RDERABLES Performing Organization Address [facility] Co de Phone Number [facility] See Below * INSJ [...] to verify the correct patient, procedure, equipment, help desk support and site/side marked as required. Indications: vascular [...] Gas, Venous (11/08/2024 5:46 PM EST) Pathologist [facility] Venous Blood PH 7.35 7.33 - 7.43 11/08/2024 6:00 PM EST [facility] Venous pCO2 49 35 - 50 mmHG 11/08/2024 6:00 PM EST [facility] Venous pO2 45 0 - 60 mmHG 11/08/2024 6:00 PM EST [facility] Venous Total CO2 28 23 - 29 mmol/L 11/08/2024 6:00 PM EST [facility] Respiratory Info NASAL 6 L/MIN 11/08/2024 5:29 PM EST Base Excess 0.9 mmol/L 11/08/2024 6:00 PM EST [facility] Comment:Reference Range: Neg ative 2 to Positive 3 Blood Blood specimen / Unknown 11/08/2024 5:46 PM EST 11/08/2024 5:55 PM EST Eunice Garrison APRN LAB BLOOD ORDERA BLES Performing Organization Address City/[facility]/ZIP [place] [address], [place] [address] * (ABNORMAL) Phosphorus (Routine) (11/08/2024 5:46 PM EST) Phosphorus 4.9(H) 2.7 - 4.5 mg/dL 11/08/2024 7:23 PM [facility] Blood (Plasma/Serum) 11/08/2024 5:46 PM EST 11/08/2024 6:51 PM EST Eunice Garrison APRN LAB BLOOD ORDERA BLES Performing Organization Address City/[facility]/ZIP [place] [address], [place] [address] * Magnesium (Routine) (11/08/2024 5:46 PM EST) Magnesium 1.9 1.6 - 2.7 mg/dL 11/08/2024 7:23 PM EST [facility] Blood (Plasma/Serum) 11/08/2024 5:46 PM EST 11/08/2024 6:51 PM EST Eunice Verhagen [facility] LAB BLOOD ORDERA BLES [address] [address], [address] [address] * (ABNORMAL) Basic Metabolic Panel (Routine) (11/08/2024 5:46 PM EST) Glucose 134(H) 65 - 99 mg/dL 11/08/2024 7:23 PM [facility] Comment:Fasting: <100 mg/dL, Non-Fasting: <200 mg/dL (ADA 2004) Blood Urea Nitrogen (BUN) 45(H) 8 - 21 mg/dL 11/08/2024 7:23 PM [facility] Creatinine 1.7(H) 0.5 - 1.3 mg/dL 11/08/2024 7:23 PM [facility] eGFR 45(L) >59 11/08/2024 7:23 PM [facility] Comment:CKD-EPI (2020) in mL /min/1.73 sq meters. Sodium 141 136 - 145 mmol/L 11/08/2024 7:23 PM [facility] Potassium 3.3(L) 3.4 - 5.3 mmol/L 11/08/2024 7:23 PM [facility] Chloride 102 98 - 107 mmol/L 11/08/2024 7:23 PM [facility] CO2 26 22 - 33 mmol/L 11/08/2024 7:23 PM [facility] Anion Gap 13 7 - 17 11/08/2024 7:23 PM [facility] Calcium 8.6(L) 8.7 - 10.5 mg/dL 11/08/2024 7:23 PM [facility] BUN/Creatinine Ratio 26(H) 10.0 - 25.0 Ratio 11/08/2024 7:23 PM [facility] Blood (Plasma/Serum) 11/08/2024 5:46 PM EST 11/08/2024 6:51 PM EST Eunice Garrison APRN LAB [place] [address], [facility] [address] [place] [address] * XR Chest 1 view-Portable (STAT) (11/08/2024 [...] prior study. Interpreted by: ??Bashir Barrientos MD Rag Collector I personally reviewed the images and the [...] prior study. Interpreted by: Bashir Barrientos MD Rag Collector I personally reviewed the images and the [...] CARE TEST O JOSEPH Performing Organization Address [facility] de Phone Number HOSPITAL LAB See Below * (ABNORMAL) POCT Glucose, Fingerstick (11/08/2024 11:28 AM EST) POC Glucose 162(H) 65 - 99 mg/dL 11/08/2024 11:29 AM EST Blood specimen / Unknown 11/08/2024 11:28 AM EST 11/08/2024 11:29 AM EST Dallas Camejo MD POINT OF CARE TEST O JOSEPH Performing Organization Address [facility] de Phone Number HOSPITAL LAB [...] T (Once) (11/08/2024 12:05 AM EST) Pathologist [facility] High Sensitivity Troponin T 26(H) <23 ng/L 11/08/2024 12:39 AM EST [facility] Delta (Change) NO CHANGE <3 11/08/2024 12:39 AM EST [facility] Blood (Plasma/Serum) 11/08/2024 12:05 AM EST 11/08/2024 12:16 AM EST [facility] LAB BLOOD ORDERABLES Performing Organization Address [facility] [place] [address], [place] [address] * Creatine Kinase (CK) (11/08/2024 12:05 AM EST) Pathologist [facility] Creatine Kinase (CK) 91 24 - 204 U/L 11/08/2024 12:39 AM EST [facility] Blood (Plasma/Serum) 11/08/2024 12:05 AM EST 11/08/2024 12:16 AM EST [facility] BLOOD ORDERABLES Performing Organization Address City/[facility]/[place] [address], [place] [address] * (ABNORMAL) proBNP, N-terminal (11/08/2024 12:05 AM EST) proBNP, N-terminal 4,241(H) <125 pg/mL 11/08/2024 12:39 AM [facility] Blood Plasma specimen / Unknown 11/08/2024 12:05 AM EST 11/08/2024 12:16 AM EST Kayla Orona APRN LAB BLOOD ORDERABLES Performing Organization Address City/State/[facility] [place] [address], [place] [address] * (ABNORMAL) HEPATIC FUNCTION PANEL (11/08/2024 12:05 AM EST) Pathologist [facility] Alkaline Phosphatase 226(H) 45 - 128 U/L 11/08/2024 12:39 AM [facility] Aspartate Aminotrans (AST) 24 10 - 55 U/L 11/08/2024 12:39 AM [facility] Alanine Aminotrans (ALT) 24 10 - 55 U/L 11/08/2024 12:39 AM [facility] Bilirubin, Total <0.2(L) 0.2 - 1.0 mg/dL 11/08/2024 12:39 AM [facility] Protein, Total 5.5(L) 6.3 - 8.3 g/dL 11/08/2024 12:39 AM [facility] Albumin 2.3(L) 3.4 - 4.8 g/dL 11/08/2024 12:39 AM [facility] Bilirubin, Direct 0.1 0 - 0.2 mg/dL 11/08/2024 12:39 AM [facility] Globulin 3.2 1.5 - 3.9 g/dL 11/08/2024 12:39 AM [facility] Albumin/Globulin Ratio 0.7(L) 1.0 - 3.0 Ratio 11/08/2024 12:39 AM [facility] Blood (Plasma/Serum) 11/08/2024 12:05 AM EST 11/08/2024 12:16 AM EST Kayla Orona [facility] LAB BLOOD ORDERABLES [address] [address], [place] [address] * (ABNORMAL) COMPLETE BLOOD COUNT, WITHOUT DIFFERENTIAL (11/08/2024 12:05 AM EST) White Blood Cell Count 13.1(H) 4.0 - 11.0 Thou/uL 11/08/2024 12:22 AM [facility] Platelet Count 378 150 - 450 Thou/uL 11/08/2024 12:22 AM [facility] Hemoglobin 7.9(L) 13.0 - 17.7 g/dL 11/08/2024 12:22 AM [facility] Hematocrit 25.6(L) 39.0 - 54.0 % 11/08/2024 12:22 AM [facility] Red Blood Cell Count 2.83(L) 4.50 - 6.20 Mil/uL 11/08/2024 12:22 AM [facility] MCV 91 80 - 100 fL 11/08/2024 12:22 AM [facility] MCH 27.9 27.0 - 31.0 pg 11/08/2024 12:22 AM [facility] MCHC 30.9 30.0 - 36.0 g/dL 11/08/2024 12:22 AM [facility] RDW 16.9(H) 11.5 - 14.5 % 11/08/2024 12:22 AM [facility] MPV 9.3 7.5 - 12.5 fL 11/08/2024 12:22 AM [facility] Blood Blood specimen / Unknown 11/08/2024 12:05 AM EST 11/08/2024 12:16 AM EST Kayla Orona APRN LAB BLOOD ORDERABLES [address] [address], [address] [address] * (ABNORMAL) Phosphorus (11/08/2024 12:05 AM EST) Phosphorus 5.2(H) 2.7 - 4.5 mg/dL 11/08/2024 12:39 AM [facility] Blood (Plasma/Serum) 11/08/2024 12:05 AM EST 11/08/2024 12:16 AM EST [facility] LAB BLOOD ORDERABLES Performing Organization Address City/[facility]/[place] [address], [place] [address] * Magnesium (11/08/2024 12:05 AM EST) Magnesium 2.0 1.6 - 2.7 mg/dL 11/08/2024 12:39 AM [facility] Blood (Plasma/Serum) 11/08/2024 12:05 AM EST 11/08/2024 12:16 AM EST [facility] LAB BLOOD ORDERABLES Performing Organization Address City/[facility]/ZIP [place] [address], [place] [address] * (ABNORMAL) Basic Metabolic Panel (11/08/2024 12:05 AM EST) Glucose 231(H) 65 - 99 mg/dL 11/08/2024 12:39 AM [facility] Comment:Fasting: <100 mg/dL, Non-Fasting: <200 mg/dL (ADA 2005) Blood Urea Nitrogen (BUN) 48(H) 8 - 21 mg/dL 11/08/2024 12:39 AM [facility] Creatinine 1.6(H) 0.5 - 1.3 mg/dL 11/08/2024 12:39 AM [facility] eGFR 48(L) >59 11/08/2024 12:39 AM [facility] Comment:CKD-EPI (2020) in mL /min/1.73 sq meters. Sodium 133(L) 136 - 145 mmol/L 11/08/2024 12:39 AM [facility] Potassium 3.8 3.4 - 5.3 mmol/L 11/08/2024 12:39 AM [facility] Chloride 98 98 - 107 mmol/L 11/08/2024 12:39 AM [facility] CO2 21(L) 22 - 33 mmol/L 11/08/2024 12:39 AM [facility] Anion Gap 14 7 - 17 11/08/2024 12:39 AM [facility] Calcium 7.9(L) 8.7 - 10.5 mg/dL 11/08/2024 12:39 AM [facility] BUN/Creatinine Ratio 30(H) 10.0 - 25.0 Ratio 11/08/2024 12:39 AM [facility] Blood (Plasma/Serum) 11/08/2024 12:05 AM EST 11/08/2024 12:16 AM EST Kayla Orona APRN LAB BLOOD ORDERABLES Performing Organization Address [facility]/[place] [address], [place] [address] * (ABNORMAL) POCT Glucose, Fingerstick (11/07/2024 7:47 PM EST) Pathologist [facility] POC Glucose 261(H) 65 - 99 mg/dL 11/07/2024 7:53 PM EST Blood specimen / Unknown 11/07/2024 7:47 PM EST 11/07/2024 7:53 PM EST Dallas Camejo MD POINT OF CARE TEST O RDERABLES HOSPITAL LAB See Below * Respiratory PCR Panel (11/07/2024 6:30 PM EST) Adenovirus Not Detected Not Detected 11/08/2024 12:23 AM [facility] Coronavirus 229E Not Detected Not Detected 11/08/2024 12:23 AM [facility] Coronavirus HKU1 Not Detected Not Detected 11/08/2024 12:23 AM [facility] Coronavirus NL63 Not Detected Not [...] [facility] [address] [place] [address], * (ABNORMAL) High Sensitivity Troponin T (Once) (11/07/2024 4:12 PM EST) High Sensitivity Troponin T 29(H) <23 ng/L 11/07/2024 5:28 PM EST [facility] Delta (Change) 3(H) <3 11/07/2024 5:28 PM EST [facility] Comment:Increased Blood (Plasma/Serum) 11/07/2024 4:12 PM EST 11/07/2024 5:01 PM EST [facility] LAB BLOOD ORDERABLES Performing Organization Address City/[facility]/[place] [address], [place] [address] * (ABNORMAL) Phosphorus (11/07/2024 4:12 PM EST) Pathologist [facility] Phosphorus 4.7(H) 2.7 - 4.5 mg/dL 11/07/2024 5:28 PM [facility] Blood (Plasma/Serum) 11/07/2024 4:12 PM EST 11/07/2024 5:01 PM EST [facility] [place] [address], [place] [address] * Magnesium (11/07/2024 4:12 PM EST) Pathologist [facility] Magnesium 2.2 1.6 - 2.7 mg/dL 11/07/2024 5:28 PM [facility] Blood (Plasma/Serum) 11/07/2024 4:12 PM EST 11/07/2024 5:01 PM [facility] Performing Organization Address City/[facility]/[place]IP [place] [address], [place] [address] * (ABNORMAL) Basic Metabolic Panel (11/07/2024 4:12 PM EST) Glucose 183(H) 65 - 99 mg/dL 11/07/2024 5:28 PM [facility] Comment:Fasting: <100 mg/dL, Non-Fasting: <200 mg/dL (ADA 2004) Blood Urea Nitrogen (BUN) 47(H) 8 - 21 mg/dL 11/07/2024 5:28 PM [facility] Creatinine 1.6(H) 0.5 - 1.3 mg/dL 11/07/2024 5:28 PM [facility] eGFR 48(L) >59 11/07/2024 5:28 PM [facility] Comment:CKD-EPI (2020) in mL /min/1.73 sq meters. Sodium 131(L) 136 - 145 mmol/L 11/07/2024 5:28 PM [facility] Potassium 3.7 3.4 - 5.3 mmol/L 11/07/2024 5:28 PM [facility] Chloride 98 98 - 107 mmol/L 11/07/2024 5:28 PM [facility] CO2 21(L) 22 - 33 mmol/L 11/07/2024 5:28 PM [facility] Anion Gap 12 7 - 17 11/07/2024 5:28 PM [facility] Calcium 8.1(L) 8.7 - 10.5 mg/dL 11/07/2024 5:28 PM [facility] BUN/Creatinine Ratio 29(H) 10.0 - 25.0 Ratio 11/07/2024 5:28 PM [facility] Blood (Plasma/Serum) 11/07/2024 4:12 PM EST 11/07/2024 5:01 PM EST Kayla Orona APRN LAB BLOOD ORDERABLES [facility] [address] [place] [address], [place] [address] * (ABNORMAL) POCT Glucose, Fingerstick (11/07/2024 3:53 PM EST) Pathologist [facility] POC Glucose 179(H) 65 - 99 mg/dL 11/07/2024 3:58 PM EST Blood specimen / Unknown 11/07/2024 3:53 PM EST 11/07/2024 3:58 PM EST Dallas Cameoj MD POINT OF CARE TEST O RDERABLES HOSPITAL LAB See Below * ECG 12 lead (11/07/2024 2:58 PM EST) [facility] Systolic BP 116 mmHg EKG [facility] Diastolic BP 57 mmHg EKG [facility] Ventricular rate 62 BPM EKG [facility] Atrial rate 55 BPM EKG [facility] QRS duration 168 ms EKG [facility] Q-T interval 506 ms EKG [facility] QTC calculation (Bazett) 513 ms EKG [facility] R axis 104 degrees EKG [facility] [...] Camejo MD ECG ORDERABLES Performing Organization Address City/[facility]/ZIP Co de Phone Number [facility] * BLOOD CULTURE Peripheral (11/07/2024 1:02 PM EST) Pathologist [facility] Culture Sterile after 5 days 11/12/2024 7:50 AM EST [facility] Microbiology Peripheral blood specimen / Unknown 11/07/2024 1:02 PM EST 11/07/2024 1:23 PM EST Chris Taylor MD LAB AMB MICRO ORDERA BLES Performing Organization Address [facility]/ZIP Co de Phone Number [facility] [address] [address], * BLOOD CULTURE Peripheral (11/07/2024 12:57 PM EST) Culture Sterile after 5 days 11/12/2024 7:50 AM EST [facility] Microbiology Peripheral blood specimen / Unknown 11/07/2024 12:57 PM EST 11/07/2024 1:49 PM EST Chris Taylor MD LAB AMB MICRO ORDERA BLES Performing Organization Address [facility] Co de Phone Number [facility] [address] [place] [address], * (ABNORMAL) Blood Gas, Arterial (STAT) (11/07/2024 12:36 PM EST) pH, Arterial 7.38 7.35 - 7.45 11/07/2024 1:02 PM [facility] pCO2, Arterial 36 32 - 45 mmHG 11/07/2024 1:02 PM [facility] pO2, Arterial 119(H) 75 - 95 mmHG 11/07/2024 1:02 PM [facility] CO2, Total 22 22 - 28 mmol/L 11/07/2024 1:02 PM [facility] Respiratory Info OTHER 11/07/19 25 12:36 PM EST Base Deficiency 3.5 mmol/L 1:02 PM [facility] Comment:Reference Range: Neg ative 2 to Positive 3 Blood Blood specimen / Unknown 11/07/2024 12:36 PM EST 11/07/2024 12:50 PM EST Kayla Orona APRN LAB BLOOD ORDERABLES [address] [address], [address] [address] * (ABNORMAL) POCT Glucose, Fingerstick (11/07/2024 12:29 [...] to prior. Interpreted by: ??Roberto Tolbert MD Rag Collector I personally reviewed the images and the [...] to prior. Interpreted by: Roberto Tolbert MD Rag Collector I personally reviewed the images and the resident's preliminary report and AGREE with the report as it is now presented ([id number]). Juaquin Kern MD IMG DIAGNOSTIC SOCOR[facility] GING ORDERABLES * (ABNORMAL) High Sensitivity Troponin T (11/07/2024 8:13 AM EST) [facility] High Sensitivity Troponin T 26(H) <23 ng/L 11/07/2024 12:53 PM EST [facility] Delta (Change) NO PREVIOUS RESULT <3 11/07/2024 12:53 PM EST [facility] Plasma/Serum 11/07/2024 8:13 AM EST 11/07/2024 8:49 AM EST Juaquin Kern MD LAB BLOOD ORDERABL ES Performing Organization Address City/[facility]/[place] [address], [place] [address] * (ABNORMAL) proBNP, N-terminal (11/07/2024 8:13 AM EST) [facility] proBNP, N-terminal 3,427(H) <125 pg/mL 11/07/2024 10:25 AM EST [facility] Plasma specimen / Unknown 11/07/2024 8:13 AM EST 11/07/2024 8:49 AM EST Juaquin Kern MD LAB BLOOD ORDERABL ES Performing Organization Address City/[facility]/[place] [address], [place] [address] * (ABNORMAL) Complete Blood Count, WITHOUT Differential (routine) (11/07/2024 8:13 AM EST) [facility] White Blood Cell Count 12.4(H) 4.0 - 11.0 Thou/uL 11/07/2024 9:05 AM [facility] Platelet Count 430 150 - 450 Thou/uL 11/07/2024 9:05 AM [facility] Hemoglobin 8.9(L) 13.0 - 17.7 g/dL 11/07/2024 9:05 AM [facility] Hematocrit 28.9(L) 39.0 - 54.0 % 11/07/2024 9:05 AM [facility] Red Blood Cell Count 3.16(L) 4.50 - 6.20 Mil/uL 11/07/2024 9:05 AM [facility] MCV 92 80 - 100 fL 11/07/2024 9:05 AM [facility] MCH 28.2 27.0 - 31.0 pg 11/07/2024 9:05 AM [facility] MCHC 30.8 30.0 - 36.0 g/dL 11/07/2024 9:05 AM [facility] RDW 16.7(H) 11.5 - 14.5 % 11/07/2024 9:05 AM [facility] MPV 9.6 7.5 - 12.5 fL 11/07/2024 9:05 AM [facility] nRBC 0.2(H) 0.0 - 0.1 /100 WBC 11/07/2024 9:05 AM [facility] nRBC, Absolute 0.03(H) 0.00 - 0.02 Thou/uL 11/07/2024 9:05 AM [facility] Blood Blood specimen / Unknown 11/07/2024 8:13 AM EST 11/07/2024 8:49 AM EST Juaquin Kern MD [place] [address], [address] [id number] * MAGNESIUM (11/07/2024 8:13 AM EST) Magnesium 2.3 1.6 - 2.7 mg/dL 11/07/2024 9:26 AM [facility] Blood (Plasma/Serum) 11/07/2024 8:13 AM EST 11/07/2024 8:49 AM EST Juaquin Kern MD LAB BLOOD ORDERABL ES Performing Organization Address [facility] [place] [address], [place] [address] * PHOSPHORUS (11/07/2024 8:13 AM EST) Phosphorus 4.3 2.7 - 4.5 mg/dL 11/07/2024 9:26 AM [facility] Blood (Plasma/Serum) 11/07/2024 8:13 AM EST 11/07/2024 8:49 AM EST Juaquin Kern MD LAB BLOOD ORDERABL ES Performing Organization Address [facility] [place] [address], [place] [address] * (ABNORMAL) Comprehensive Metabolic Panel (11/07/2024 8:13 AM EST) Glucose 188(H) 65 - 99 mg/dL 11/07/2024 9:26 AM [facility] Comment:Fasting: <100 mg/dL, Non-Fasting: <200 mg/dL (ADA 2005) Blood Urea Nitrogen (BUN) 47(H) 8 - 21 mg/dL 11/07/2024 9:26 AM [facility] Creatinine 1.5(H) 0.5 - 1.3 mg/dL 11/07/2024 9:26 AM [facility] eGFR 52(L) >59 11/07/2024 9:26 AM [facility] Comment:CKD-EPI (2020) in mL /min/1.73 sq meters. Sodium 129(L) 136 - 145 mmol/L 11/07/2024 9:26 AM [facility] Potassium 3.9 3.4 - 5.3 mmol/L 11/07/2024 9:26 AM [facility] Chloride 94(L) 98 - 107 mmol/L 11/07/2024 9:26 AM [facility] CO2 22 22 - 33 mmol/L 11/07/2024 9:26 AM [facility] Calcium 8.3(L) 8.7 - 10.5 mg/dL 11/07/2024 9:26 AM [facility] Alkaline Phosphatase 220(H) 45 - 128 U/L 11/07/2024 9:26 AM [facility] Aspartate Aminotrans (AST) 28 10 - 55 U/L 11/07/2024 9:26 AM [facility] Alanine Aminotrans (ALT) 29 10 - 55 U/L 11/07/2024 9:26 AM [facility] Bilirubin, Total 0.2 0.2 - 1.0 mg/dL 11/07/2024 9:26 AM [facility] Protein, Total 6.1(L) 6.3 - 8.3 g/dL 11/07/2024 9:26 AM [facility] Albumin 2.6(L) 3.4 - 4.8 g/dL 11/07/2024 9:26 AM [facility] BUN/Creatinine Ratio 31(H) 10.0 - 25.0 Ratio 11/07/2024 9:26 AM [facility] Globulin 3.5 1.5 - 3.9 g/dL 11/07/2024 9:26 AM [facility] Albumin/Globulin Ratio 0.7(L) 1.0 - 3.0 Ratio 11/07/2024 9:26 [facility] Anion Gap 13 7 - 17 11/07/2024 9:26 AM [facility] Blood (Plasma/Serum) 11/07/2024 8:13 AM EST 11/07/2024 8:49 AM EST Juaquin Kern MD [place] [address], [place] [address] * (ABNORMAL) POCT Glucose, Fingerstick (11/07/2024 7:33 AM EST) POC Glucose 191(H) 65 - 99 mg/dL 11/07/2024 7:36 AM EST Blood specimen / Unknown 11/07/2024 7:33 AM EST 11/07/2024 7:36 AM EST Dallas Camejo MD POINT OF CARE TEST O RDERALUCILLE Performing Organization Address [facility] LAB See Below * (ABNORMAL) POCT Glucose, Fingerstick (11/07/2024 2:07 AM EST) POC Glucose 231(H) 65 - 99 mg/dL 11/07/2024 2:08 AM EST Blood specimen / Unknown 11/07/2024 2:07 AM EST 11/07/2024 2:08 AM EST Dallas Camejo MD POINT OF CARE TEST O RDGHANSHYAM Performing Organization Address [facility] LAB See Below * (ABNORMAL) POCT Glucose, Fingerstick (11/06/2024 9:23 PM EST) POC Glucose 277(H) 65 - 99 mg/dL 11/06/2024 9:24 PM EST Blood specimen / Unknown 11/06/2024 9:23 PM EST 11/06/2024 9:24 PM EST Dallas Camejo MD POINT OF CARE TEST O RDERALUCILLE Performing Organization Address [facility] Number [facility] LAB See Below * (ABNORMAL) POCT Glucose, Fingerstick (11/06/2024 5:24 PM EST) POC Glucose 193(H) 65 - 99 mg/dL 11/06/2024 5:29 PM EST Blood specimen / Unknown 11/06/2024 5:24 PM EST 11/06/2024 5:29 PM EST Dallas Camejo MD POINT OF CARE TEST O RDERALUCILLE Performing Organization Address [facility]/ZIP Co de Phone Number HOSPITAL LAB See Below * (ABNORMAL) POCT Glucose, Fingerstick (11/06/2024 2:45 PM EST) POC Glucose 217(H) 65 - 99 mg/dL 11/06/2024 2:46 PM EST Blood specimen / Unknown 11/06/2024 2:45 PM EST 11/06/2024 2:46 PM EST Dallas Camejo MD POINT OF CARE TEST O RDERALUCILLE Performing Organization Address [facility] Phone Number [facility] LAB See Below * (ABNORMAL) POCT Glucose, Fingerstick (11/06/2024 12:10 PM EST) POC Glucose 229(H) 65 - 99 mg/dL 11/06/2024 2:24 PM EST Blood specimen / Unknown 11/06/2024 12:10 PM EST 11/06/2024 2:24 PM EST Dallas Camejo MD POINT OF CARE TEST O JOSEPH Performing Organization Address [facility] Phone Number [facility] LAB See Below * (ABNORMAL) POCT Glucose, Fingerstick (11/06/2024 7:51 AM EST) POC Glucose 210(H) 65 - 99 mg/dL 11/06/2024 8:43 AM EST Blood specimen / Unknown 11/06/2024 7:51 AM EST 11/06/2024 8:43 AM EST Dallas Camejo MD POINT OF CARE TEST O RDERALUCILLE Performing Organization Address [facility] de Phone Number [facility] LAB See Below * (ABNORMAL) Complete Blood Count WITH Differential - Early AM (11/06/2024 4:58 AM EST) White Blood Cell Count 11.9(H) 4.0 - 11.0 Thou/uL 11/06/2024 5:26 AM EST [facility] Platelet Count 346 150 - 450 Thou/uL 11/06/2024 5:26 AM [facility] Hemoglobin 8.7(L) 13.0 - 17.7 g/dL 11/06/2024 5:26 AM [facility] Hematocrit 27.9(L) 39.0 - 54.0 % 11/06/2024 5:26 [facility] Red Blood Cell Count 3.05(L) 4.50 - 6.20 Mil/uL 11/06/2024 5:26 AM [facility] MCV 92 80 - 100 fL 11/06/2024 5:26 AM [facility] MCH 28.5 27.0 - 31.0 pg 11/06/2024 5:26 AM [facility] MCHC 31.2 30.0 - 36.0 g/dL 11/06/2024 5: [facility] RDW 16.4(H) 11.5 - 14.5 % 11/06/2024 5: [facility] MPV 9.5 7.5 - 12.5 fL 11/06/2024 5:26 AM [facility] Neutrophils Auto 88.8 % 11/06/19 5: [facility] Immature Granulocytes 1.1 % 11/06/2024 5: [facility] Lymphocytes Auto 3.4 % 11/06/19 5:26 [facility] Monocytes Auto 6.6 % 11/06/2024 5:26 [facility] Eosinophils Auto 0.0 % 11/06/19 5:26 [facility] Basophils Auto 0.1 % 11/06/2024 5:26 AM [facility] Abs Neutrophils Auto 10.57(H) 2.00 - 7.50 Thou/uL 11/06/2024 5:26 [facility] Abs Immature Granulocytes 0.13(H) 0.00 - 0.10 Thou/uL 11/06/2024 5:26 AM [facility] Abs Lymphocytes Auto 0.41(L) 1.50 - 4.50 Thou/uL 11/06/2024 5:26 [facility] Abs Monocytes Auto 0.79 0.20 - 1.50 Thou/uL 11/06/2024 5:26 AM [facility] Abs Eosinophils Auto 0.00 0.00 - 0.70 Thou/uL 11/06/2024 5:26 AM EST [facility] Abs Basophils Auto 0.01 0.00 - 0.20 Thou/uL 11/06/2024 5:26 AM [facility] Blood Blood specimen / Unknown 11/06/2024 4:58 AM EST 11/06/2024 5:15 AM EST Renea PATTON LAB BLOOD ORDERABLES Performing Organization Address City/[facility]/[place] [address], [place] [address] * (ABNORMAL) PHOSPHORUS (11/06/2024 4:58 AM EST) Phosphorus 5.1(H) 2.7 - 4.5 mg/dL 11/06/2024 5:46 AM [facility] Blood (Plasma/Serum) 11/06/2024 4:58 AM EST 11/06/2024 5:15 AM EST Renea PATTON LAB BLOOD ORDERABLES Performing Organization Address City/[facility] [place] [address], [place] [address] * MAGNESIUM (11/06/2024 4:58 AM EST) Magnesium 2.5 1.6 - 2.7 mg/dL 11/06/2024 5:46 AM [facility] Blood (Plasma/Serum) 11/06/2024 4:58 AM EST 11/06/2024 5:15 AM EST Renea PATTON LAB BLOOD ORDERABLES Performing Organization Address City/[facility] [place] [address], [place] [address] * (ABNORMAL) Comprehensive Metabolic Panel (11/06/2024 4:58 AM EST) Glucose 194(H) 65 - 99 mg/dL 11/06/2024 5:46 AM [facility] Comment:Fasting: <100 mg/dL, Non-Fasting: <200 mg/dL (ADA 2004) Blood Urea Nitrogen (BUN) 48(H) 8 - 21 mg/dL 11/06/2024 5:46 AM [facility] Creatinine 1.7(H) 0.5 - 1.3 mg/dL 11/06/2024 5:46 AM [facility] eGFR 45(L) >59 11/06/2024 5:46 AM [facility] Comment:CKD-EPI (2020) in mL /min/1.73 sq meters. Sodium 131(L) 136 - 145 mmol/L 11/06/2024 5:46 AM [facility] Potassium 3.8 3.4 - 5.3 mmol/L 11/06/2024 5:46 AM [facility] Chloride 99 98 - 107 mmol/L 11/06/2024 5:46 AM [facility] CO2 20(L) 22 - 33 mmol/L 11/06/2024 5:46 AM [facility] Calcium 7.8(L) 8.7 - 10.5 mg/dL 11/06/2024 5:46 AM [facility] Alkaline Phosphatase 270(H) 45 - 128 U/L 11/06/2024 5:46 AM [facility] Aspartate Aminotrans (AST) 50 10 - 55 U/L 11/06/2024 5:46 AM [facility] Alanine Aminotrans (ALT) 31 10 - 55 U/L 11/06/2024 5:46 AM [facility] Bilirubin, Total 0.2 0.2 - 1.0 mg/dL 11/06/2024 5:46 AM [facility] Protein, Total 5.7(L) 6.3 - 8.3 g/dL 11/06/2024 5:46 AM [facility] Albumin 2.4(L) 3.4 - 4.8 g/dL 11/06/2024 5:46 AM [facility] BUN/Creatinine Ratio 28(H) 10.0 - 25.0 Ratio 11/06/2024 5:46 AM [facility] Globulin 3.3 1.5 - 3.9 g/dL 11/06/2024 5:46 AM [facility] Albumin/Globulin Ratio 0.7(L) 1.0 - 3.0 Ratio 11/06/2024 5:46 AM [facility] Anion Gap 12 7 - 17 11/06/2024 5:46 AM [facility] Blood (Plasma/Serum) 11/06/2024 4:58 AM EST 11/06/2024 5:15 AM EST Renea PATTON LAB BLOOD ORDERABLES Performing Organization Address City/[facility]/[place] [address], [place] [address] * BLOOD CULTURE Peripheral (11/06/2024 4:58 AM EST) Culture Sterile after 5 days 11/11/2024 8:20 AM [facility] Microbiology Peripheral blood specimen / Unknown 11/06/2024 4:58 AM EST 11/06/2024 5:36 AM EST Renea PATTON LAB AMB MICRO ORDERA BLES Performing Organization Address [facility] Co de Phone Number [facility] [address] [place] [address], * BLOOD CULTURE Peripheral (11/06/2024 4:58 AM EST) Culture Sterile after 5 days 11/11/2024 8:20 AM [facility] Microbiology Peripheral blood specimen / Unknown 11/06/2024 4:58 AM EST 11/06/2024 5:36 AM EST Renea PATTON LAB AMB MICRO ORDERA BLES Performing Organization Address [facility] Co de Phone Number [facility] [address] [place] [address], * (ABNORMAL) POCT Glucose, Fingerstick (11/06/2024 1:17 AM EST) POC Glucose 229(H) 65 - 99 mg/dL 11/06/2024 1:18 AM EST Blood specimen / Unknown 11/06/2024 1:17 AM EST 11/06/2024 1:18 AM EST Dallas Camejo MD POINT OF CARE TEST O RDERALUCILLE Performing Organization Address [facility] LAB See Below * (ABNORMAL) POCT Glucose, Fingerstick (11/05/2024 11:05 PM EST) POC Glucose 251(H) 65 - 99 mg/dL 11/05/2024 11:07 PM EST Blood specimen / Unknown 11/05/2024 11:05 PM EST 11/05/2024 11:07 PM EST Dallas Camejo MD POINT OF CARE TEST O CRISTIANERALUCILLE Performing Organization Address [facility] LAB See Below * (ABNORMAL) POCT Glucose, Fingerstick (11/05/2024 6:10 PM EST) POC Glucose 138(H) 65 - 99 mg/dL 11/05/2024 6:10 PM EST Blood specimen / Unknown 11/05/2024 6:10 PM EST 11/05/2024 6:11 PM EST Dallas Camejo MD POINT OF CARE TEST O RDERALUCILLE Performing Organization Address [facility] Number [facility] LAB See Below * (ABNORMAL) POCT Glucose, Fingerstick (11/05/2024 3:37 PM EST) POC Glucose 138(H) 65 - 99 mg/dL 11/05/2024 3:38 PM EST Blood specimen / Unknown 11/05/2024 3:37 PM EST 11/05/2024 3:38 PM EST Dallas Camejo MD POINT OF CARE TEST O RDERALUCILLE Performing Organization Address [facility]/ZIP Co de Phone Number HOSPITAL LAB See Below * Pathology (11/05/2024 2:11 PM EST) Report [facility] CT [id number] ?? CLIA ID [id number] [address] [place] [address] ??[id number] Surgical Pathology Report PATIENT NAME: BLAS GENAO REC NUMBER: [id number] (AGE): 1960 (Age: 63) SPECIMEN NUMBER: [id number] DATE OBTAINED: 11/05/2024 DIAGNOSIS LEFT LOWER EXTREMITY, BELOW KNEE AMPUTATION: ??SEVERE PERIPHERAL ARTERIOSCLEROSIS WITH CALCIFICATION, GANGRENOUS ULCER OF FOOT WITH SEVERE ACUTE OSTEOMYELITIS. NEGATIVE AMPUTATION MARGIN. 11/16/2024 Electronically Signed Out ? SENA SHABAZZ MD COMMENT [id number], [id number] Clinical Information and History: Acute osteomyelitis of [...] other masses or lesions are grossly identified. ??Administration Intern sections are submitted in A1 - ?? [...] Anticoagulant Information not given 11/05/2024 7:47 AM [facility] Prothrombin Time (PT) 15.3(H) 10.0 - 13.5 seconds 11/05/2024 8:07 AM [facility] INR 1.3 11/05/2024 8:07 AM [facility] Comment:INR Therapeutic Rang es: Standard dose anticoagulant 2.0 to 3.0, High dose anticoagulant 2.5-3.5. Plasma specimen / Unknown 11/05/2024 7:12 AM EST 11/05/2024 7:46 AM EST Chris Taylor MD LAB BLOOD ORDERABLES Performing Organization Address [facility] [place] [address], [place] [address] * (ABNORMAL) COMPLETE BLOOD COUNT, WITHOUT DIFFERENTIAL (11/05/2024 7:12 AM EST) White Blood Cell Count 15.9(H) 4.0 - 11.0 Thou/uL 11/05/2024 7:59 AM [facility] Platelet Count 353 150 - 450 Thou/uL 11/05/2024 7:59 AM [facility] Hemoglobin 9.1(L) 13.0 - 17.7 g/dL 11/05/2024 7:59 AM [facility] Hematocrit 28.3(L) 39.0 - 54.0 % 11/05/2024 7:59 AM [facility] Red Blood Cell Count 3.12(L) 4.50 - 6.20 Mil/uL 11/05/2024 7:59 AM [facility] MCV 91 80 - 100 fL 11/05/2024 7:59 AM [facility] MCH 29.2 27.0 - 31.0 pg 11/05/2024 7:59 AM [facility] MCHC 32.2 30.0 - 36.0 g/dL 11/05/2024 7:59 AM [facility] RDW 16.8(H) 11.5 - 14.5 % 11/05/2024 7:59 AM [facility] MPV 9.8 7.5 - 12.5 fL 11/05/2024 7:59 AM [facility] Blood specimen / Unknown 11/05/2024 7:12 AM EST 11/05/2024 7:46 AM EST Chris Taylor MD LAB BLOOD ORDERABLES Performing Organization Address City/State/[facility] [place] [address], [place] [address] * (ABNORMAL) BASIC METABOLIC PANEL (11/05/2024 7:12 AM EST) Glucose 146(H) 65 - 99 mg/dL 11/05/2024 8:18 AM [facility] Comment:Fasting: <100 mg/dL, Non-Fasting: <200 mg/dL (ADA 2004) Blood Urea Nitrogen (BUN) 47(H) 8 - 21 mg/dL 11/05/2024 8:18 AM [facility] Creatinine 2.0(H) 0.5 - 1.3 mg/dL 11/05/2024 8:18 AM [facility] eGFR 37(L) >59 11/05/2024 8:18 AM [facility] Comment:CKD-EPI (2020) in mL /min/1.73 sq meters. Sodium 130(L) 136 - 145 mmol/L 11/05/2024 8:18 AM [facility] Potassium 3.4 3.4 - 5.3 mmol/L 11/05/2024 8:18 AM [facility] Chloride 96(L) 98 - 107 mmol/L 11/05/2024 8:18 AM [facility] CO2 19(L) 22 - 33 mmol/L 11/05/2024 8:18 AM [facility] Anion Gap 15 7 - 17 11/05/2024 8:18 AM [facility] Calcium 7.9(L) 8.7 - 10.5 mg/dL 11/05/2024 8:18 AM [facility] BUN/Creatinine Ratio 24 10.0 - 25.0 Ratio 11/05/2024 8:18 AM [facility] Plasma/Serum 11/05/2024 7:12 AM EST 11/05/2024 7:46 AM EST Chris Taylor MD [place] [address], [place] [address] * (ABNORMAL) Hepatic Function Panel (AM) (11/05/2024 7:12 AM EST) Alkaline Phosphatase 153(H) 45 - 128 U/L 11/05/2024 8:18 AM [facility] Aspartate Aminotrans (AST) 26 10 - 55 U/L 11/05/2024 8:18 AM [facility] Alanine Aminotrans (ALT) 23 10 - 55 U/L 11/05/2024 8:18 AM [facility] Bilirubin, Total 0.3 0.2 - 1.0 mg/dL 11/05/2024 8:18 AM [facility] Protein, Total 5.9(L) 6.3 - 8.3 g/dL 11/05/2024 8:18 AM [facility] Albumin 2.5(L) 3.4 - 4.8 g/dL 11/05/2024 8:18 AM [facility] Bilirubin, Direct 0.2 0 - 0.2 mg/dL 11/05/2024 8:18 AM [facility] Globulin 3.4 1.5 - 3.9 g/dL 11/05/2024 8:18 AM [facility] Albumin/Globulin Ratio 0.7(L) 1.0 - 3.0 Ratio 11/05/2024 8:18 AM [facility] Blood (Plasma/Serum) 11/05/2024 7:12 AM EST 11/05/2024 7:46 AM EST Chris Taylor MD LAB BLOOD ORDERABLES Performing Organization Address [facility] [place] [address], [place] [address] * Creatine Kinase, Reflex to CKMB (11/05/2024 7:12 AM EST) Creatine Kinase (CK) 49 24 - 204 U/L 11/05/2024 8:18 AM EST [facility] Blood (Plasma/Serum) 11/05/2024 7:12 AM EST 11/05/2024 7:46 AM EST Chris Taylor MD LAB BLOOD ORDERABLES Performing Organization Address [facility] [place] [address], [place] [address] * (ABNORMAL) POCT Glucose, Fingerstick (11/05/2024 6:26 [...] ruled out. Interpreted by: ??David Vogt DO Rag Collector I personally reviewed the images and the [...] ruled out. Interpreted by: David Vogt DO Rag Collector I personally reviewed the images and the [...] CARE TEST O RDGHANSHYAM Performing Organization Address [facility] LAB See Below * (ABNORMAL) POCT Glucose, Fingerstick (11/04/2024 5:00 PM EST) POC Glucose 172(H) 65 - 99 mg/dL 11/04/2024 5:22 PM EST Blood specimen / Unknown 11/04/2024 5:00 PM EST 11/04/2024 5:22 PM EST Dallas Camejo MD POINT OF CARE TEST O JOSEPH Performing Organization Address [facility] LAB See Below * (ABNORMAL) POCT Glucose, Fingerstick (11/04/2024 12:43 PM EST) POC Glucose 167(H) 65 - 99 mg/dL 11/04/2024 12:48 PM EST Blood specimen / Unknown 11/04/2024 12:43 PM EST 11/04/2024 12:48 PM EST Dallas Camejo MD POINT OF CARE TEST O RDERALUCILLE Performing Organization Address [facility] Number [facility] LAB See Below * (ABNORMAL) Complete Blood Count WITHOUT Differential - Early AM (11/04/2024 11:19 AM EST) White Blood Cell Count 13.4(H) 4.0 - 11.0 Thou/uL 11/04/2024 11:38 AM [facility] Platelet Count 326 150 - 450 Thou/uL 11/04/2024 11:38 AM [facility] Hemoglobin 8.7(L) 13.0 - 17.7 g/dL 11/04/2024 11:38 AM [facility] Hematocrit 28.0(L) 39.0 - 54.0 % 11/04/2024 11:38 AM [facility] Red Blood Cell Count 3.05(L) 4.50 - 6.20 Mil/uL 11/04/2024 11:38 AM [facility] MCV 92 80 - 100 fL 11/04/2024 11:38 AM [facility] MCH 28.5 27.0 - 31.0 pg 11/04/2024 11:38 AM [facility] MCHC 31.1 30.0 - 36.0 g/dL 11/04/2024 11:38 AM [facility] RDW 16.6(H) 11.5 - 14.5 % 11/04/2024 11:38 AM [facility] MPV 9.4 7.5 - 12.5 fL 11/04/2024 11:38 AM [facility] Blood Blood specimen / Unknown 11/04/2024 11:19 AM EST 11/04/2024 11:28 AM EST Renea PATTON LAB BLOOD ORDERABLES Performing Organization Address City/[facility]/[place] [address], [place] [address] * (ABNORMAL) BLOOD CULTURE Peripheral (11/04/2024 11:03 AM EST) Gram stain suggestive of Gram positive cocci in clusters 11/07/2024 10:29 AM [facility] Culture Methicillin Resistant Staph aureus (MRSA) Aerobic bottle positive. Susceptibility of the same isolate identification, from the same apparent body site is only performed once per 5 calendar days. ?See susceptibilities reported on specimen collected 11/02/2024 (A) 11/08/2024 12:21 PM [facility] Microbiology Peripheral blood specimen / Unknown 11/04/2024 11:03 AM EST 11/04/2024 12:35 PM EST Chris Taylor MD LAB AMB MICRO ORDERA BLES [facility] [address] * (ABNORMAL) BLOOD CULTURE Peripheral (11/04/2024 11:03 AM EST) Gram stain suggestive of Gram positive cocci in clusters 11/07/2024 1:43 PM [facility] Culture Methicillin Resistant Staph aureus (MRSA) Aerobic bottle positive. Susceptibility of the same isolate identification, from the same apparent body site is only performed once per 5 calendar days. ?See susceptibilities reported on specimen collected 11/02/2024 (A) 11/08/2024 12:17 PM [facility] Microbiology Peripheral blood specimen / Unknown 11/04/2024 11:03 AM EST 11/04/2024 12:35 PM EST Chris Taylor MD LAB AMB MICRO ORDERA BLES [facility] [address] [place] [address], * (ABNORMAL) Basic Metabolic Panel (Routine) (11/04/2024 10:50 AM EST) Glucose 184(H) 65 - 99 mg/dL 11/04/2024 11:53 AM [facility] Comment:Fasting: <100 mg/dL, Non-Fasting: <200 mg/dL (ADA 2004) Blood Urea Nitrogen (BUN) 48(H) 8 - 21 mg/dL 11/04/2024 11:53 AM [facility] Creatinine 2.0(H) 0.5 - 1.3 mg/dL 11/04/2024 11:53 AM [facility] eGFR 37(L) >59 11/04/2024 11:53 AM [facility] Comment:CKD-EPI (2020) in mL /min/1.73 sq meters. Sodium 130(L) 136 - 145 mmol/L 11/04/2024 11:53 AM [facility] Potassium 3.7 3.4 - 5.3 mmol/L 11/04/2024 11:53 AM [facility] Chloride 95(L) 98 - 107 mmol/L 11/04/2024 11:53 AM [facility] CO2 21(L) 22 - 33 mmol/L 11/04/2024 11:53 AM EST [facility] Anion Gap 14 7 - 17 11/04/2024 11:53 AM [facility] Calcium 7.7(L) 8.7 - 10.5 mg/dL 11/04/2024 11:53 AM [facility] BUN/Creatinine Ratio 24 10.0 - 25.0 Ratio 11/04/2024 11:53 AM EST [facility] Blood (Plasma/Serum) 11/04/2024 10:50 AM EST 11/04/2024 11:28 AM EST Juaquin Kern MD [place] [address], [place] [address] * ECHOCARDIOGRAM COMPREHENSIVE (11/04/2024 9:05 AM EST) [...] ?Compared to previous outside study report from [facility] on 08/05/2024, Mitral and tricuspid [...] Compared to previous outside study report from [facility] on 08/05/2024, Mitral and tricuspid [...] BANK PRODUCT O RDERABLES Performing Organization Address [facility] Co hi Phone Number [facility] See Below * (ABNORMAL) POCT Glucose, Fingerstick (11/03/2024 9:25 PM EST) POC Glucose 229(H) 65 - 99 mg/dL 11/03/2024 9:26 PM EST Blood specimen / Unknown 11/03/2024 9:25 PM EST 11/03/2024 9:26 PM EST Dallas Camejo MD POINT OF CARE TEST O RDERABLES Performing Organization Address [facility] [facility] See Below * (ABNORMAL) POCT Glucose, Fingerstick (11/03/2024 5:50 PM EST) POC Glucose 158(H) 65 - 99 mg/dL 11/03/2024 6:19 PM EST Blood specimen / Unknown 11/03/2024 5:50 PM EST 11/03/2024 6:19 PM EST Dallas Camejo MD POINT OF CARE TEST O R[place]UCILLE Performing Organization Address [facility] Number [facility] See Below * (ABNORMAL) POCT Glucose, Fingerstick (11/03/2024 11:43 AM EST) POC Glucose 153(H) 65 - 99 mg/dL 11/03/2024 11:48 AM EST Blood specimen / Unknown 11/03/2024 11:43 AM EST 11/03/2024 11:48 AM EST Dallas Camejo MD POINT OF CARE TEST O R[place]UC[place]LE Performing Organization Address [facility] Number [facility] See Below * Creatine Kinase (CK) (11/03/2024 10:52 AM EST) Creatine Kinase (CK) 61 24 - 204 U/L 11/03/2024 11:37 AM EST [facility] Blood (Plasma/Serum) 11/03/2024 10:52 AM EST 11/03/2024 11:10 AM EST Ena Mtz MD LAB BLOOD ORDERA BLES Performing Organization Address [facility]/[place] [address], [place] [address] * (ABNORMAL) POCT Glucose, Fingerstick (11/03/2024 7:56 AM EST) [facility] POC Glucose 165(H) 65 - 99 mg/dL 11/03/2024 8:04 AM EST Blood specimen / Unknown 11/03/2024 7:56 AM EST 11/03/2024 8:04 AM EST Dallas Camejo MD POINT OF CARE TEST O RDERABLES Performing Organization Address City/[facility]/ZIP Co de Phone Number [facility] See Below * MRSA PCR Screen, Qualitative (11/03/2024 3:24 AM EST) [facility] MRSA Result Not Detected Not Detected 7:00 AM EST [facility] Comment:Performed by the Xpe rt MRSA NxG Assay X-Specimen 12 Specimen from nose / Unknown 11/03/2024 3:24 AM EST 11/03/2024 5:23 AM EST Kenzie PATTON MICROBIOLOGY - GENE RAL ORDERABLES Performing Organization Address [facility] [place] [address], [place] [address] * ECG 12 lead (STAT) (11/02/2024 9:34 PM EST) [facility] Ventricular rate 70 BPM EKG [facility] Atrial rate 70 BPM EKG [facility] P-R interval 272 ms EKG [facility] QRS duration 202 ms EKG [facility] Q-T interval 510 ms EKG [facility] QTC calculation (Bazett) 551 ms EKG [facility] P axis 81 degrees EKG [facility] R axis 29 degrees EKG [facility] T axis 132 degrees EKG [facility] 11/02/2024 9:34 PM EST Narrative EKG [facility] [...] 11/03/2024 4:30:25 PM Kenzie PATTON ECG ORDERABLES [facility] * (ABNORMAL) POCT Glucose, Fingerstick (11/02/2024 9:19 PM EST) [facility] POC Glucose 163(H) 65 - 99 mg/dL 11/02/2024 9:20 PM EST Blood specimen / Unknown 11/02/2024 9:19 PM EST 11/02/2024 9:20 PM EST Dallas Camejo MD POINT OF CARE TEST O RDERABLES [facility]OSPITAL LAB See Below * (ABNORMAL) Blood Culture ID PCR Panel (11/02/2024 8:00 PM EST) [facility] BC ID PCR Result Summary Enterococcus faecalis Vancomycin resistance gene detected by molecular method. Please refer to detailed susceptibility results when available and suggest consultation with Infectious Diseases for management. 11/03/2024 6:06 PM EST [facility] BC ID PCR Result [facility] [address] [place] [address], * (ABNORMAL) Erythrocyte Sedimentation Rate (ESR) (11/02/2024 8:00 PM EST) Erythrocyte Sediment Rate (ESR) 79(H) <20 MM/HR 11/02/2024 8:51 PM [facility] Blood specimen / Unknown 11/02/2024 8:00 PM EST 11/02/2024 8:22 PM EST Kenzie Mcknight Taylor PATTON LAB BLOOD ORDERABLE S Performing Organization Address City/[facility]/[place] [address], [place] [address] * (ABNORMAL) C-REACTIVE PROTEIN (11/02/2024 8:00 PM EST) C-Reactive Protein 29.62(H) 0 - 0.49 mg/dL 11/03/2024 12:04 AM [facility] Plasma/Serum 11/02/2024 8:00 PM EST 11/02/2024 8:22 PM EST Kenzie PATTON [place] [address], [place] [address] * (ABNORMAL) BLOOD CULTURE Peripheral (11/02/2024 8:00 PM EST) Gram stain suggestive of Gram positive cocci 11/03/2024 3:55 PM [facility] Culture Methicillin Resistant Staph aureus (MRSA) Aerobic and Anaerobic bottle positive. Complete identification and susceptibility of the same isolate, if appropriate, performed on only one blood culture collection per day. (A) 11/06/2024 12:15 PM [facility] Culture Enterococcus faecalis Aerobic and Anaerobic bottle positive. Complete identification and susceptibility of the same isolate, if appropriate, performed on only one blood culture collection per day. (A) 11/06/2024 12:15 PM [facility] Microbiology Peripheral blood specimen / Unknown 11/02/2024 8:00 PM EST 11/02/2024 8:28 PM EST Kenzie PATTON LAB AMB MICRO ORDER JOSE [facility] [address] [place] [address], [place] * (ABNORMAL) BLOOD CULTURE Peripheral (11/02/2024 8:00 [...] [facility] [address] [place] [address], * Vitamin D, 25-Hydroxy (11/02/2024 8:00 PM EST) Vitamin D, 25-Hydroxy 50 30 - 100 ng/mL 11/02/2024 9:10 PM EST [facility] Blood (Plasma/Serum) 11/02/2024 8:00 PM EST 11/02/2024 8:23 PM EST Kenzie PATTON LAB [place] [address], [place] [address] * (ABNORMAL) TRANSFERRIN (11/02/2024 8:00 PM EST) Transferrin 178(L) 200 - 360 mg/dL 11/03/2024 12:04 AM EST [facility] Blood (Plasma/Serum) 11/02/2024 8:00 PM EST 11/02/2024 8:22 PM EST Keznie PATTON LAB BLOOD ORDERABLE S Performing Organization Address City/[facility]/[place] [address], [place] [address] * (ABNORMAL) Prealbumin (11/02/2024 8:00 PM EST) Prealbumin 7(L) 20 - 40 mg/dL 11/03/2024 12:04 AM EST [facility] Blood (Plasma/Serum) 11/02/2024 8:00 PM EST 11/02/2024 8:22 PM EST Kenzie PATTON LAB BLOOD ORDERABLE S Performing Organization Address City/[facility]/[place] [address], [place] [address] * (ABNORMAL) Albumin (11/02/2024 8:00 PM EST) Albumin 3.2(L) 3.4 - 4.8 g/dL 11/03/2024 12:04 AM [facility] Blood (Plasma/Serum) 11/02/2024 8:00 PM EST 11/02/2024 8:22 PM EST Kenzie PATTON LAB BLOOD ORDERABLE S Performing Organization Address [facility]/[place] [address], [place] [address] * (ABNORMAL) Protime-INR (Routine) (11/02/2024 8:00 PM EST) Anticoagulant APIXABAN (ELIQUIS) 11/02/2024 6:26 PM EST Prothrombin Time (PT) 14.7(H) 10.0 - 13.5 seconds 11/02/2024 9:05 PM [facility] INR 1.3 11/02/2024 9:05 PM [facility] Comment:INR Therapeutic Rang es: Standard dose anticoagulant 2.0 to 3.0, High dose anticoagulant 2.5-3.5. Blood Plasma specimen / Unknown 11/02/2024 8:00 PM EST 11/02/2024 8:22 PM EST Kenzie Chandlergisselle PATTON LAB BLOOD ORDERABLE S Performing Organization Address [facility]/[place] [address], [place] [address] * (ABNORMAL) Basic Metabolic Panel (STAT) (11/02/2024 8:00 PM EST) Glucose 171(H) 65 - 99 mg/dL 11/03/2024 12:04 AM [facility] Comment:Fasting: <100 mg/dL, Non-Fasting: <200 mg/dL (ADA 2005) Blood Urea Nitrogen (BUN) 41(H) 8 - 21 mg/dL 11/03/2024 12:04 AM [facility] Creatinine 2.0(H) 0.5 - 1.3 mg/dL 11/03/2024 12:04 AM [facility] eGFR 37(L) >59 11/03/2024 12:04 AM [facility] Comment:CKD-EPI (2020) in mL /min/1.73 sq meters. Sodium 130(L) 136 - 145 mmol/L 11/03/2024 12:04 AM [facility] Potassium 4.0 3.4 - 5.3 mmol/L 11/03/2024 12:04 AM [facility] Chloride 92(L) 98 - 107 mmol/L 11/03/2024 12:04 AM [facility] CO2 19(L) 22 - 33 mmol/L 11/03/2024 12:04 AM [facility] Anion Gap 19(H) 7 - 17 11/03/2024 12:04 AM [facility] Calcium 8.5(L) 8.7 - 10.5 mg/dL 11/03/2024 12:04 AM [facility] BUN/Creatinine Ratio 21 10.0 - 25.0 Ratio 11/03/2024 12:04 AM [facility] Blood (Plasma/Serum) 11/02/2024 8:00 PM EST 11/02/2024 8:22 PM EST Kenzie PATTON LAB BLOOD ORDERABLE S Performing Organization Address City/State/[facility] [place] [address], [place] [address] * (ABNORMAL) Complete Blood Count WITH Differential - STAT (11/02/2024 8:00 PM EST) White Blood Cell Count 14.3(H) 4.0 - 11.0 Thou/uL 11/02/2024 8:32 PM [facility] Platelet Count 395 150 - 450 Thou/uL 11/02/2024 8:32 PM [facility] Hemoglobin 9.3(L) 13.0 - 17.7 g/dL 11/02/2024 8:32 PM [facility] Hematocrit 29.3(L) 39.0 - 54.0 % 11/02/2024 8:32 PM [facility] Red Blood Cell Count 3.20(L) 4.50 - 6.20 Mil/uL 11/02/2024 8:32 PM [facility] MCV 92 80 - 100 fL 11/02/2024 8:32 PM [facility] MCH 29.1 27.0 - 31.0 pg 11/02/2024 8:32 PM [facility] MCHC 31.7 30.0 - 36.0 g/dL 11/02/2024 8:32 PM [facility] RDW 16.1(H) 11.5 - 14.5 % 11/02/2024 8:32 PM [facility] MPV 9.5 7.5 - 12.5 fL 11/02/2024 8:32 PM [facility] Neutrophils Auto 81.9 % 11/02/19 8:32 PM [facility] Immature Granulocytes 0.6 % 11/02/2024 8:32 PM [facility] Lymphocytes Auto 4.8 % 11/02/19 8:32 PM [facility] Monocytes Auto 12.2 % 11/02/2024 8:32 PM [facility] Eosinophils Auto 0.1 % 11/02/19 8:32 PM [facility] Basophils Auto 0.4 % 11/02/2024 8:32 PM [facility] Abs Neutrophils Auto 11.67(H) 2.00 - 7.50 Thou/uL 11/02/2024 8:32 PM [facility] Abs Immature Granulocytes 0.08 0.00 - 0.10 Thou/uL 11/02/2024 8:32 PM [facility] Abs Lymphocytes Auto 0.69(L) 1.50 - 4.50 Thou/uL 11/02/2024 8:32 PM [facility] Abs Monocytes Auto 1.74(H) 0.20 - 1.50 Thou/uL 11/02/2024 8:32 PM [facility] Abs Eosinophils Auto 0.02 0.00 - 0.70 Thou/uL 11/02/2024 8:32 PM [facility] Abs Basophils Auto 0.05 0.00 - 0.20 Thou/uL 11/02/2024 8:32 PM [facility] Blood Blood specimen / Unknown 11/02/2024 8:00 PM EST 11/02/2024 8:22 PM EST Kenzie PATTON LAB BLOOD ORDERABLE S [address] [address], [address] [address] * Type and Screen (11/02/2024 7:56 PM EST) ABO/Rh A POSITIVE 11/02/2024 10:22 PM [facility] Antibody Screen NEGATIVE 11/02/2024 10:22 PM [facility] Specimen Expiration 11/05/2024 11/02/2024 10:22 PM [facility] Unit Number [id number] 11/04/2024 6:58 AM [facility] Blood Component Type LEUKOREDUCED RED CELLS 11/04/2024 6:58 AM [facility] Unit Division 00 11/04/2024 6:58 AM [facility] Unit Status REL FROM ALLOC 9:33 PM [facility] Transfusion Status OK TO TRANSFUSE 11/04/2024 6:58 AM [facility] Crossmatch Result Electronically Compatible 11/04/2024 6:58 AM [facility] Unit Number [id number] 11/04/2024 6:58 AM [facility] Blood Component Type LEUKOREDUCED RED CELLS 11/04/2024 6:58 AM [facility] Unit Division 00 11/04/2024 6:58 AM [facility] Unit Status REL FROM ALLOC 9:33 PM [facility] Transfusion Status OK TO TRANSFUSE 11/04/2024 6:58 AM [facility] Crossmatch Result Electronically Compatible 11/04/2024 6:58 AM [facility] Blood Blood specimen / Unknown 11/02/2024 7:56 PM EST 11/02/2024 8:51 PM EST Comment:Blood Kenzie PATTON BLOOD BANK TEST ORD ERABLES HOSPITAL LAB See Below [facility] [address] [place] [address] * (ABNORMAL) POCT Glucose, Fingerstick (11/02/2024 6:48 [...] approved indications of use of aztreonam at [facility]. Please use Other to document an indication not listed (ID provider approval will be required). Treatment of MDR organisms, All antimicrobials used at [facility] require an indication. Please complete the following [...] 2 mg, Intravenous, Once, On Fri11/07/24 at 2000, For 1 dose, Hold for SBP less than 100 mmHg. Notify provider if a dose is held. For IV Push, administer over 2 minutes in 10 ml NS Given 11/07/2024 8:43 PM EST 2 mg bumetanide (BUMEX) IV infusion 12.5 mg in 50 mL 2 mg/hr (8 mL/hr), Intravenous, Continuous, Starting on Fri11/07/24 at 1030, Do Not Titrate. Need new [...] dose (after last modification) on Fri11/06/24 at 1700, Hold for SBP less than [...] approved indication of use for ceftaroline at [facility]. ID provider approval is also required. Salvage [...] Fri11/18/24 at 1130, All antimicrobials used at [facility] require an indication. Please complete the following [...] 40 mg 40 mg, Subcutaneous, Once, On Fri11/04/24 at 0900, For 1 dose, Not for [...] to moderately severe pain 4-6, Starting on 11/06/24 at 1222, For 12 days 2 hours Given 11/18/2024 10:30 AM EST 2 mg HYDROmorphone (DILAUDID) tablet 4 mg 4 mg, Oral, Every 3 hours PRN, severe to excruciating pain 7-10, Starting on 11/06/24 at 1222, For 12 days 2 [...] 0200, First dose (after last modification) on Fri11/08/24 at 2100, DO NOT HOLD IF NPO [...] (ATIVAN) injection 0.5 mg 0.5 mg, Intravenous, inbound call center agent, On Fri11/12/24 at 1300, For 1 dose, [...] approved indications of use for meropenem at [facility]. Please use Other to document an indication [...] 20 mEq 20 mEq, Oral, Once, On 11/08/25 at 2000, For 1 dose, Swallow tablets [...] 40 mEq 40 mEq, Oral, Once, On Fri11/21/24 at 1230, For 1 dose, Swallow tablets [...] 40 mEq 40 mEq, Oral, Once, On Fri11/18/24 at 1230, For 1 dose, Dissolve contents [...] For 1 dose, All antimicrobials used at [facility] require an indication. Please complete the following [...] RN) 0815 (Given - Provider: Mitesh Caldwell, JOSUE)210 (Given - Provider: Agnieszka Torrez RN) 0935 (Given - Provider: Mitesh Caldwell RN) calcium citrate (CALCITRATE) tablet 950 mg 950 mg, Oral, 2 times daily with meals, First dose on 11/06/24 at 0800, Calcium Citrate 950 mg = Elemental Calcium 200 mg 0852 (Given - Provider: Nelson Iqbal RN)1729 (Given - Provider: Nelson Iqbal RN) 0814 (Given - Provider: Mitesh Caldwell, RN)1753 (Given - Provider: Page Montemayor RN) 0935 (Given - Provider: Mitesh Caldwell RN)1700 (Not Given - Provider: Mitesh Caldwell RN - Reason: Patient/family refused) cefTRIAXone (ROCEPHIN) 2 g in sodium chloride-MBP (NS) 100 mL IVPB-MBP 2 g, Intravenous, at 200 mL/hr, Every 24 hours, First dose on Lennie 11/18/24 at 1130, All antimicrobials used at [facility] require an indication. Please complete the following documentation. Bacterial Infection Documented, Type of Therapy: New Therapy, Indication: Bacteremia 1041 (New Bag - Provider: Nelson Iqbal RN) 1228 (New Bag - Provider: Page Montemayor RN) 1113 (New Bag - Provider: Mitesh Caldwell, JOSUE)2151 (Due: Stopped) chlorhexidine gluconate 2 % wipes [...] Ellyn Patel RN)0901 (Given - Provider: Nelson Iqbal, JOSUE)1728 (Given - Provider: Nelson Iqbal RN) 0257 [...] Iqbal RN) 0817 (Given - Provider: Mitesh Caldwell, JOSUE)1228 (Given - Provider: Page Montemayor RN)1753 (Given [...] RN) 0814 (Given - Provider: Mitesh Caldwell RN)2109 (Given - Provider: Agnieszka Torrez, JOSUE) 0936 [...] documented as of this encounter Care Teams Turret Press Operator Relationship Specialty Start Date End Date Lee Fabian MD PCP - General Internal Medicine 09/02/24 Vitaliy Fields MD [address] [address] Cardiovascular Disease 09/02/24 Dallas Camejo MD [address] [place] [address] Surgery, Orthopedic 09/02/24 Rolando Lopez MD [address] Transplant - Ph [address] [place] [address] Physician Nephrology 09/02/24 Cesar Fair MD 85 [facility] [address] [place] [address] Surgery, Cardiac 11/08/24 Daisy Her, PT [address] [place] [address] Asset AccountantField Installer Medicine and Rehabilitation 11/18/24 documented as of this encounter
--- OUTSIDE RECORDS SUMMARY | 2024-12-10 15:23 | XMS_ITS | Encounter Summary ---
Author Organization [facility] Address [address] [place] [address] Care Team Providers Care Habilitation Training Specialist Name Role Phone Lee Fabian MD Primary Care Provider Unavail able Vitaliy Fields MD Unavailable [phone] Dallas Camejo MD Unavailable [phone] Rolando Lopez MD Unavailable [phone] Cesar Fair MD Unavailable Daisy Her PT Unavailable [phone] Encounter Details Date Type Department Care Team (Late st Contact Info) Description 12/01/2024 Orders Only [facility] [address] [place] [address] Dallas Camejo MD [address] [place] [id number] Below-knee amputation of left lower extremity, initial encounter (HCC) (Primary Dx) Social History Tobacco Use Types Packs/Day Years Used Date Smoking Tobacco: Former Cigarettes 1 29.2 1 977 - 2003 Smokeless Tobacco: Never Alcohol Use Standard Drinks/Week Comments Yes 21 (1 standard drink = 0.6 oz pu re alcohol) [facility] Utilities Answer Date Recorded In the past 12 months has [employer] gas, oil, or water company threatened to [...] in the past [address] [facility], were you homeless or [...] 2:00 PM EDT Office [place] [facility] [address] Dallas Camejo MD [address] [place] [address] 12/16/2024 8:30 AM EDT Office Visit [facility] Infectious Disease [address] [place] [phone] Ena Mtz MD [address] [place], [place] [id number] 12/22/2024 10:00 AM EDT Appointment [facility] Heart & Vascular [place] [facility] - Echocardiography Laboratory [address] [place] [phone] Ena Mtz MD [address] [place] [id number] documented as of this encounter Visit Diagnoses Diagnosis Below-knee amputation of left lower extremity, initial encounter (HCC)- Primary documented in this encounter Care Teams Habilitation Training Specialist Relationship Specialty Start Date End Date Lee Fabian MD PCP - General Internal Medicine 09/02/24 Vitaliy Fields MD [address] [place] [id number] Cardiovascular Disease 09/02/24 Dallas Camejo MD [address] [place] [address] Surgery, Orthopedic 09/02/24 Rolando Lopez MD [address] Transplant - Ph 14 [place] [address] Physician Nephrology 09/02/24 Cesar Fair MD 85 [facility] [address] [place] [address] Surgery, Cardiac 11/08/24 Daisy Her, PT [address] [place] [address] Product ArchitectTalent Director Medicine and Rehabilitation 11/18/24 documented as of this encounter
--- OUTSIDE RECORDS SUMMARY | 2024-12-10 15:24 | XMS_ITS | Encounter Summary ---
Author Organization [facility] Address [address] [place] [address] Care Team Providers Care Atm Technician Name Role Phone Jarrett Merlos MD Primary Care Provider Unavail able Lee Fabian MD Primary Care Provider [phone] Encounter Details Date Type Department Care Team Description 10/08/2011 Database Administration Manager Report Medical Records [address] [place] [address] Ton Smith MD Social History Tobacco Use Types Packs/Day [...] on filedocumented in this encounter Care Teams Atm Technician Relationship Specialty Start Date End Date Jarrett Merlos MD PCP - General 06/08/01 03/22/20 Lee Fabian MD [address] [place] [id number] PCP - General Internal Medicine 03/23/20 documented as of this encounter
--- OUTSIDE RECORDS SUMMARY | 2024-12-10 15:24 | XMS_ITS | Encounter Summary ---
Author Organization [facility] Address [address] [place] [address] Care Team Providers Care Director Of Market Research Name Role Phone Lee Fabian MD Primary Care Provider Unavail able Vitaliy Fields MD Unavailable Dallas Camejo MD Unavailable Rolando Lopez MD Unavailable Cesar Fair MD Unavailable Reason for Visit * Auth/Cert Specialty Diagnoses / Procedures Referred By Contac t Referred To Contact Diagnoses left ankle infection Procedures N/A Referral ID Status Reason Start Date Expiration Date Visits Re quested Visits Authorized [id number] 1 1 Encounter Details Date Type Department Care Team (Late st Contact Info) Description 11/17/2024 1:37 PM EST - 11/17/2024 4:[address] [facility] Perioperative Surgical Services [address] [place] [id number] Rui Pabon MD [address] [place] [id number] Extraction lead(s) laser from dual PM system; 15852 Social History Tobacco Use Types Packs/Day Years Used Date Smoking Tobacco: Former Cigarettes 1 29.2 1 977 - 2004 Smokeless Tobacco: Never Alcohol Use Standard Drinks/Week Comments Yes 21 (1 standard drink = 0.6 oz pu re alcohol) [facility] Utilities Answer Date Recorded In [...] in the past 12 m [facility], were you homeless or living in a chcf (including now)? No 11/03/2024 Sex and Gender [...] MD (Surgery, Cardiac) Daisy Her PT as Customer Support Analyst (Physical Medicine and Rehabilitation) PRIMARY DISCHARGE DIAGNOSIS [...] regurgitation (POA: Unknown) Resolved Problems: DISCHARGE DISPOSITION Residential Facility Code Status Procedures Full code . [...] Continuous Glucose Sensor (FreeStyle Wallace 3 Sensor) [facility] INJECT 1 DEVICE INTO THE SKIN EVERY [...] Routine Referral Type: Home Health Referral Location: [facility] [...] Arrhythmi 12/15/2024 10:45 AM Alba Ramos MD [id number] PM&r 12/16/2024 8:30 AM Ena Mtz MD [...] while on IV antibiotics. Fax results to [phone]. Patient will need to be scheduled [...] Case IDs Date Procedure Surgeon Location Status [id number] 11/05/24 LEFT BELOW KNEE AMPUTATION Dallas Camejo MD [facility] OR Comp [id number] 11/17/24 Extraction lead(s) laser from dual PM system; [id number] Rui Pabon MD Main OR Comp [id number] 11/19/24 CVC INSERT (TUNNEL)W/O PORT > 5 [...] Device Extraction Discharge Instructions Important phone numbers: Poultry Tender/Surgeon???s office: [phone] (8am-4:30pm Fri - Friday Our answering service [...] If it does not stop, go to [facility] ER or walk-in center. If you experience any of the above, call your surgeon/disabilities caregiver???s office immediately. If still present, remove the [...] Report any of these symptoms to your disabilities caregiver. Call your primary clinical care manager if you experience any of the [...] Discharge Instructions Important phone numbers: [facility]: [phone] (8am-4:30pm Fri-Friday) Poultry Tender/Surgeon???s office: [phone] (8am-4:30pm Fri -Friday) Our answering service is [...] experience any of the above, call your disabilities caregiver???s office immediately It is normal to have [...] dental procedure. You should call your primary clinical care manager if you experience any of the [...] when you get home. If your primary clinical care manager???s office will monitor your pacemaker, please [...] through the weekend - advised to call [facility] - phone number on pg 5 [...] Plan Plan Home w/family and [facility] Patient/Family in Agreement with Plan yes Final Discharge Disposition Code 06 - home with home health care Final Case Management Care Plan Note Summary: Per provider, patient is medically ready to transition home with services. Confirmed that patient is able to obtain medications/food/necessities post discharge. Patient now refusing HSC (LTACH) and returning home with son, [facility] for IV abx and [facility]. Final Destination: Home with son and [facility] Plan for home support/Caregiver/responsible person: Son and [facility] Follow-up provider appointment: Per AVS/W-10 Equipment Ordered [...] level of independence with self-care tasks. Current [facility] Daily Activity Score: 18 Precautions/Restrictions: [...] in recliner, in NAD on RA, agreeable. Rough Rib Grader + limb protector donned to LLE Pain Assessment Pre/Posttreatment Pain Comment denied pain Coping Observed Emotional State calm;cooperative Safety Safety WDL WDL Progressive Mobility Progressive Mobility Level Achieved Transferring to Chair [facility] Daily Activity Putting on and taking off Lower Body Clothing? 3 Bathing (including washing/rinsing/drying)? 2 Toileting (includes using toilet, bedpan, or urinal)? 2 Putting on and taking off upper body clothing? 3 Taking care of personal grooming such as brushing teeth? 4 Eating meals? 4 [facility] Daily Activity Score 18 Progress Summary (OT) Progress Toward Functional Goals (OT) progress toward functional goals is good Sign: Christen Tapia OT * Aditi Jones PA-C - 11/25/2024 11:50 AM EST PHYSICAL MEDICINE & REHABILITATION CONSULT FOLLOW-UP NOTE Patients Name: Blas Genao : 1960 MR Number: [id number] Reason for Consultation: Amputee rehab needs Date [...] support, tolerance to therapy and plan for long term care phlebotomist antibiotics. He mayhave ability to progress to [...] 2 drop Each Eye Q2H PRN Gretel M Tappin, REEL WORKER cefTRIAXone (ROCEPHIN) 2 g in sodium chloride-MBP [...] injection 5,000 Units 5,000 Units Subcutaneous Q8H [facility] Gianluca Calles MD 5,000 Units at 11/25/24 0931 insulin glargine (LANtus/SEMGLEE) 100 units/mL injection 10 Units 10 Units Subcutaneous Daily Corbin Lamb APRN 10 Units at 11/25/24 0933 insulin lispro (HumaLOG/ADMELOG) 100 units/mL injection 1-6 Units 1-6 Units Subcutaneous TID with meals Corbindenise Lamb REEL WORKER 1 Units at 11/25/24 0900 insulin lispro (HumaLOG/ADMELOG) 100 units/mL injection 3 Units 3 Units Subcutaneous TID with mealsCorbin Lamb APRN 3 Units at 11/25/24 0905 ipratropium-albuterol (DUONEB) 0.5-2.5 mg/3 mL nebulizer solution 3 mL 3 mL Nebulization Q2H PRN Corbin Lamb REEL WORKER 3 mL at 11/07/24 1025 lactulose (ENULOSE) 10 gm/15 mL solution 20 g 20 g Oral Q4H PRN Corbin Lamb REEL WORKER melatonin tablet 3 mg 3 mg Oral Nightly PRN Corbin Lamb REEL WORKER 3 mg at 11/19/24 2222 methocarbamol (ROBAXIN) tablet 1,000 mg 1,000 mg Oral 4x Daily Corbin Lamb, REEL WORKER 1,000 mg at 11/25/24 0934 metoPROLOL TARTRATE (LOPRESSOR) tablet 50 mg 50 mg Oral BID Corbin Lamb REEL WORKER 50 mg at 11/25/24 0935 multivitamin with minerals tablet 1 tablet 1 tablet Oral Daily Corbin Adonis, REEL WORKER 1 tablet at 11/25/24 0935 naloxone (NARCAN) 0.4 mg/mL injection 0.4 mg 0.4 mg Intravenous Q5 Min PRN Corbindenise Lamb REEL WORKER naloxone (NARCAN) 0.4 mg/mL injection 0.4 mg 0.4 mg Intravenous Q5 Min PRN Corbindenise Lamb REEL WORKER nicotine (NICODERM CQ) 21 MG/24HR patch 1 patch 1 patch Transdermal Daily Corbin Adonis REEL WORKER 1 patch at 11/25/24 0930 ondansetron (ZOFRAN) injection 4 mg 4 mg Intravenous Q6H PRN Corbindenise Lamb, REEL WORKER 4 mg at 11/17/24 1639 PANTOprazole (PROTONIX) EC tablet 40 mg 40 mg Oral Daily Corbin Lamb REEL WORKER 40 mg at 11/25/24 0935 polyethylene glycol (miraLAx) packet 17 g 17 g Oral Daily Corbindenise Lamb, REEL WORKER 17 g at 11/25/24 0932 [Provider Held] pravastatin (PRAVACHOL) tablet 20 mg 20 mg Oral Daily Corbin Adonis, REEL WORKER pregabalin (LYRICA) capsule 100 mg 100 mg Oral TID Corbin Adonis, REEL WORKER 100 mg at 11/25/24 0935 senna-docusate (SENNA-S) 8.6-50 MG tablet 2 tablet 2 tablet Oral BID Corbin Adonis, REEL WORKER 2 tablet at 11/25/24 0936 thiamine mononitrate (VITAMIN B-1) tablet 200 mg 200 mg Oral Daily Corbin Adonis, REEL WORKER 200 mg at11/25/24 0934 Physical Exam: Vitals: [...] S/p Left BKA with ampushield and stump element setter C/D/I Skin: No skin breakdown to exposed [...] has been excellent throughout his stay at [facility]. Plan of Care Patient's plan [...] Sanchez MD - 11/24/2024 3:17 PM EST [facility] MEDICINE PROGRESS NOTE Assessment [...] while on IV antibiotics. Fax results to [phone] 4. Patient will need to be scheduled [...] today. Upon arrival he had a steam conditioner filling in the room with him.Waited outside for 20 minutes before moving on to other patients. Will attempt to meet with patientagain later this week to review stoplight previously provided. * Ena Mtz MD - 11/24/2024 11:24 AM EST Images from the original note were not included. [facility] Consult progress Note Name: [...] while on IV antibiotics. Fax results to [phone]. Patient will need to be scheduled [...] 0849 Sign Ena Mtz MD, FACP, CWSP [facility] Infectious Diseases Available via [employer] SUBJECTIVE Remains in the hospital awaiting placement [...] not compromised. This report was generated using [employer] Speaking dictation software. Although every attempt has been made by the provider to proofread this document, occasional misspellings and typographical errors may still be present. * Gianluca Calles MD - 11/23/2024 3:06 PM EST [facility] MEDICINE PROGRESS NOTE Assessment [...] shortness of breath. Objective Vitals: 11/22/24 1550 02/199911/22/24212911/22/24 2248 BP: (!) 107/53 131/68 127/59 Pulse: [...] MD 11/23/2024 3:06 PM * Milan Vale, WARP DYEING TENDER - 11/23/2024 2:03 PM EST Physical Therapy [...] level of independence with functional mobility. Current [facility] Basic Mobility Score: (P) 18 [...] upon arrival, RN in room. Ampushield and element setter inplace. Both agreeable for tx Existing Precautions/Restrictions [...] Progressive Mobility Progressive Mobility Level Achieved Ambulation [facility] Basic Mobility Turning from your [...] Climbing 3-5 steps with a railing? 1 [facility] Basic Mobility Score 18 Therapy [...] c/w Jardiance - regarding the question of penitentiary PICC for Abx, patient high risk for PICC and proline placed instead on 11/19/24 - Patient should follow up with his outpatient hair rooting machine operator on discharge and get repeat lab [...] found for: TACROLIMUS No results found for: [id number] , TOTVOL , CRCLR , PERIOD No [...] Units, PO, Daily Given, 2,000 Units at 02/24 0822 cyanocobalamin (VITAMIN B-12) tablet 2,500 mcg 2,500 [...] Q8H JUDSON Given, 5,000 Units at 11/23 0220 insulin glargine (LANtus/SEMGLEE) 100 units/mL injection 10 [...] Nightly PRN Given, 3 mg at 11/19 222 naloxone (NARCAN) 0.4 mg/mL injection 0.4 mg 0.4 mg, IV, Q5 Min PRN Ordered naloxone (NARCAN) 0.4 mg/mL injection 0.4 mg 0.4 mg, IV, Q5 Min PRN Ordered ondansetron (ZOFRAN) injection 4 mg 4 mg, IV, Q6H PRN Given, 4 mg at 11/17 1639 Sign: Isabel Lee PA-C 11/23/2024 7:24 AM [facility] Nephrology Office [phone] Associated attestation - Anmol Reynoso MD - [...] - Patient can follow-up with his outpatient hair rooting machine operator upon discharge. Sign: Anmol Reynoso MD 11/23/2024 2:54 PM * Luz Escobedo RN - 11/22/2024 2:40 PM EST Attached media from the original note were not included. Micra AV leadless Pacemaker evaluation completed on 0. Per patient request and verbal order SharronSHUBHAM Pitts: LRL increased from 50 bpm to 60 bpm. Presenting rhythm: AM/UNDERGROUND CONDUIT INSTALLER @ 62 bpm. Underlying rhythm: CHB. AM/UNDERGROUND CONDUIT INSTALLER pacing 81%, with total V-pacing 100%. Battery and testing results evaluated and within normal limits. Normal leadless pacemaker function. JOSUE Alvarenga * Gianluca Calles MD - 11/22/2024 12:20 PM EST [facility] MEDICINE PROGRESS NOTE Assessment [...] level of independence with self-care tasks. Current [facility] Daily Activity Score: 16 Precautions/Restrictions: [...] Progressive Mobility Progressive Mobility Level Achieved Ambulation [facility] Daily Activity Putting on and taking off Lower Body Clothing? 3 Bathing (including washing/rinsing/drying)? 2 Toileting (includes using toilet, bedpan, or urinal)? 2 Putting on and taking off upper body clothing? 3 Taking care of personal grooming such as brushing teeth? 3 Eating meals? 3 [facility] Daily Activity Score 16 Progress [...] c/w Jardiance - regarding the question of penitentiary PICC for Abx, patient high risk for [...] found for: TACROLIMUS No results found for: [id number] , TOTVOL , CRCLR , PERIOD No [...] Sign: Anmol Reynoso MD 11/22/2024 9:34 AM [facility] Nephrology Office [phone] * Roberto Carranza PTA - 11/22/2024 8:46 [...] level of independence with functional mobility. Current [facility] Basic Mobility Score: 16 Rehab [...] is feeling better today. Flowsheet Data 11/22/24 0857 Physical Therapy Time and Intention PT Follow-Up [...] Progressive Mobility Level Achieved Transferring to Chair [facility] Basic Mobility Turning from your [...] Climbing 3-5 steps with a railing? 1 [facility] Basic Mobility Score 16 Therapy [...] Sign: Roberto Carranza PTA * Gema Jane REEL WORKER - 11/22/2024 8:18 AM EST Images from the original note were not included. [facility] CARDIOLOGY PROGRESS NOTE Outpatient Communications Tower Climber: [facility] Assessment & Plan Assessment 63 year old male with hypertension, hyperlipidemia, diabetes, CKD stage III, peripheral artery disease, diabetes, foot infection with osteomyelitis, complete heart block s/p dual chamber pacemaker [id number], atrial fibrillation s/p multiple ablations and cardioversions [...] by 8 bpm Confirmed by MD Claude, [facility] ([id number]) on 11/07/2024 6:25:53 PM TATIANNA [...] Compared to previous outside study report from [facility] on 08/05/2024, Mitral and tricuspid regurgitation were not previously reported. Recommend transesophageal echocardiogram if clinically indicated. Brain MRI 11/12/2024 No acute intracranial findings or suspicious intracranial lesions. No septic emboli. All additional appropriate imaging studies within the past 24 hours reviewed - images reviewed and independently interpreted. Sign Gema Jane APRN [facility] [place] 11/22/2024 8:19 AM * Jose Adair MD - 11/21/2024 2:23 PM EST Nephrology Progress Note Blas Mcknight Genao Date 11/21/2024 Assessment & Plan Assessment [...] found for: TACROLIMUS No results found for: [id number] , TOTVOL , CRCLR , PERIOD No results found for: IRON , TIBC , IRONSAT , UIBC Lab Results Component Value Date BILITOT 0.2 11/17/2024 AST 24 11/17/2024 Sign: Jose Adair MD 11/21/2024 2:23 PM * Gianluca Calles MD - 11/21/2024 12:02 PM EST [facility] MEDICINE PROGRESS NOTE Assessment [...] Calles MD - 11/20/2024 11:43 AM EST [facility] MEDICINE PROGRESS NOTE Assessment [...] found for: TACROLIMUS No results found for: [id number] , TOTVOL , CRCLR , PERIOD No results found for: IRON , TIBC , IRONSAT , UIBC Lab Results Component Value Date BILITOT 0.2 11/17/2024 AST 24 11/17/2024 Signed: Elsy Coronel APRN 11/20/2024 9:23 AM Associated attestation - Jose Adair MD - 11/20/2024 6:31 PM EST ATTESTATION: This encounter was done in conjunction with [employer]. I provided the substantive portion of thevisit [...] from the original note were not included. [facility] Consult progress Note Name: [...] while on IV antibiotics. Fax results to [phone] 4. Patient will need to be scheduled for repeat TATIANNA end of November Patient would like to follow-up with infectious disease close to home. I have communicated with Dr. Saritha Coffey office (infectious disease) at [phone]. She stated that this patient is very complicated for [facility] and she will not be [...] 0849 Sign Ena Mtz MD, FACP, CWSP [facility] Infectious Diseases Available via [employer] SUBJECTIVE Afebrile, status post AICD extraction CURRENT [...] care and coordination of care with his [id number] infectious disease physician and office Of note, some information is being carried forward from prior records for informational purposes only and is being cited so that efficiency, safety and quality of this patient's care is not compromised. This report was generated using [employer] Speaking dictation software. Although every attempt [...] left stoplight for his review and will yomba shoshone back next week to review with the patient. * Valencia LauSHUBHAM - 11/19/2024 8:02 AM EST Images from the original note were not included. [facility] PROGRESS NOTE Outpatient Communications Tower Climber: [facility] Assessment & Plan Assessment 63 year old male with hypertension, hyperlipidemia, diabetes, CKD stage III, peripheral artery disease, diabetes, foot infection with osteomyelitis, complete heart block s/p dual chamber pacemaker [id number], atrial fibrillation s/p multiple ablations and cardioversions [...] injection 5,000 Units On hold since Fri11/16/2024 [id number] until manually unheld; held by Herberth Whitmore [...] by 8 bpm Confirmed by MD Claude, [facility] ([id number]) on 11/07/2024 6:25:53 PM TATIANNA [...] Compared to previous outside study report from [facility] on 08/05/2024, Mitral and tricuspid regurgitation were not previously reported. Recommend transesophageal echocardiogram if clinically indicated. Brain MRI 11/12/2024 No acute intracranial findings or suspicious intracranial lesions. No septic emboli. All additional appropriate imaging studies within the past 24 hours reviewed - images reviewed and independently interpreted. Sign Valencia Lau [facility]N [facility] [place] 11/19/2024 8:54 AM * Lela Amor MD [...] interrogation ordered for post- OP. Presenting rhythm: AM-UNDERGROUND CONDUIT INSTALLER @ 69 bpm. Underlying rhythm: No ventricular response greater than 40 bpm. AM-UNDERGROUND CONDUIT INSTALLER @ 84.8%. Battery and device parameters evaluated [...] following is my assessment: Reason For Order: Counter Intelligence Orders Ordered Cardiac monitoring / telemetry Until [...] Name: Blas Genao : 1960 MR Number: [id number] Reason for Consultation: Rehabilitation potential Date of [...] support, tolerance to therapy and plan for correction antibiotics. Will follow progress with therapy. Sleep: [...] 975 mg 975 mg Oral Q6H JUDSON Corbin Lamb REEL WORKER 975 mg at 11/18/24 1026 acetaminophen (TYLENOL) tablet 975 mg 975 mg Oral Q6H PRN Corbin Lamb APRN amiODARONE (PACERONE) tablet 200 mg 200 mg Oral Daily Corbin aLmb REEL WORKER 200 mg at 11/18/24 1030 amLODIPine (NORVASC) tablet 10 mg 10 mg Oral Daily Corbin Lamb REEL WORKER 10 mg at 11/18/24 1029 benzocaine-menthol (CHLORASEPTIC) [...] mg 150 mg Oral BID Corbindenise Lamb, REEL WORKER 150 mg at 11/18/24 1028 calcium carbonate (TUMS) chewable tablet 1,000 mg 1,000 mg Oral Q12H PRN Corbindenise Lamb REEL WORKER calcium citrate (CALCITRATE) tablet 950 mg 950 mg Oral BID with meals Corbin Adonis, REEL WORKER 950 mg at 11/18/24 1105 carboxymethylcellulose (REFRESH PLUS) 0.5 % ophthalmic solution 2 drop 2 drop Each Eye Q2H PRN Gretel Hinds APRN cefTRIAXone (ROCEPHIN) 2 g in sodium chloride-MBP (NS) 100 mL IVPB-MBP 2 g Intravenous Q24H MD Dylan 200 mL/hr at 11/18/24 1235 2 g at 11/18/24 1235 chlorhexidine gluconate 2 % wipes - urethral catheter CHG application Topical Daily Corbin Adonis, REEL WORKER Given at 11/18/24 1031 cholecalciferol tablet 2,000 Units 2,000 Units Oral Daily Corbin Adonis, REEL WORKER 2,000 Units at 11/18/24 1103 cyanocobalamin (VITAMIN B-12) tablet 2,500 mcg 2,500 mcg Oral Daily Corbin Adonis, REEL WORKER 2,500 mcg at 11/18/24 1027 DAPTOmycin (CUBICIN) 975 mg in sodium chloride (NS) 0.9 % 50 mL IVPB 10 mg/kg (Adjusted) Intravenous Q24H Corbindenise Lamb, REEL WORKER 0 mL/hr at 11/16/24 1712 975 mg at 11/17/24 1420 donepezil (ARICEPT) tablet 10 mg 10 mg Oral QAM Corbin Lamb, REEL WORKER 10 mg at 11/18/24 1105 [Provider Held] empagliflozin (JARDIANCE) 25 mg 25 mg Oral Daily Corbin Lamb, REEL WORKER 25 mg at 11/04/24 0756 folic acid (FOLVITE) tablet 1 mg 1 mg Oral Daily Corbin Adonis, REEL WORKER 1 mg at 11/18/24 1028 [Provider Held] glimepiride (AMARYL) tablet 2 mg 2 mg Oral Daily with breakfast Corbin Lamb REEL WORKER 2 mg at 11/04/24 0757 [Provider Held] heparin (porcine) 5000 unit/mL injection 5,000 Units 5,000 Units Subcutaneous Q8H JUDSON Corbin Lamb, REEL WORKER 5,000 Units at 11/16/24 1714 HYDROmorphone (DILAUDID) tablet 2 mg 2 mg Oral Q3H PRN Corbindenise Lamb, REEL WORKER 2 mg at 11/18/24 1030 HYDROmorphone (DILAUDID) tablet 4 mg 4 mg Oral Q3H PRN Corbin Lamb, REEL WORKER 4 mg at 11/16/24 2213 insulin glargine (LANtus/SEMGLEE) 100 units/mL injection 10 Units 10 Units Subcutaneous Daily Corbin Lamb, REEL WORKER 10 Units at 11/18/24 1032 insulin lispro (HumaLOG/ADMELOG) 100 units/mL injection 1-6 Units 1-6 Units Subcutaneous TID with meals Corbin Lamb REEL WORKER 3 Units at 11/18/24 1232 insulin lispro (HumaLOG/ADMELOG) 100 units/mL injection 3 Units 3 Units Subcutaneous TID with mealsCorbin Lamb REEL WORKER 3 Units at 11/18/24 1232 ipratropium-albuterol (DUONEB) 0.5-2.5 mg/3 mL nebulizer solution 3 mL 3 mL Nebulization Q2H PRN Corbin Lamb, REEL WORKER 3 mL at 11/07/24 1025 lactulose (ENULOSE) 10 gm/15 mL solution 20 g 20 g Oral Q4H PRN Corbin Lamb, REEL WORKER melatonin tablet 3 mg 3 mg Oral Nightly PRN Corbin Lamb REEL WORKER 3 mg at 11/16/24 2215 methocarbamol (ROBAXIN) tablet 1,000 mg 1,000 mg Oral 4x Daily Corbin Lamb, REEL WORKER 1,000 mg at 11/18/24 1105 metoPROLOL TARTRATE (LOPRESSOR) tablet 50 mg 50 mg Oral BID Corbin Lamb, REEL WORKER 50 mg at 11/18/24 1031 multivitamin with minerals tablet 1 tablet 1 tablet Oral Daily Corbindenise Lamb, REEL WORKER 1 tablet at 11/18/24 1028 naloxone (NARCAN) 0.4 mg/mL injection 0.4 mg 0.4 mg Intravenous Q5 Min PRN Corbin Adonis, REEL WORKER naloxone (NARCAN) 0.4 mg/mL injection 0.4 mg 0.4 mg Intravenous Q5 Min PRN Corbin Adonis, REEL WORKER nicotine (NICODERM CQ) 21 MG/24HR patch 1 patch 1 patch Transdermal Daily Corbin Adonis, REEL WORKER 1 patch at 11/18/24 1030 ondansetron (ZOFRAN) injection 4 mg 4 mg Intravenous Q6H PRN Corbin Adonis, REEL WORKER 4 mg at 11/17/24 1639 PANTOprazole (PROTONIX) EC tablet 40 mg 40 mg Oral Daily Corbin Adonis, REEL WORKER 40 mg at 11/18/24 1029 polyethylene glycol (miraLAx) packet 17 g 17 g Oral Daily Corbin Adonis, REEL WORKER 17 g at 11/18/24 1040 [Provider Held] pravastatin (PRAVACHOL) tablet 20 mg 20 mg Oral Daily Corbin Adonis, REEL WORKER pregabalin (LYRICA) capsule 100 mg 100 mg Oral TID Corbin Adonis, REEL WORKER 100 mg at 11/18/24 1105 senna-docusate (SENNA-S) 8.6-50 MG tablet 2 tablet 2 tablet Oral BID Corbni Adonis, REEL WORKER 2 tablet at 11/18/24 1032 thiamine mononitrate (VITAMIN B-1) tablet 200 mg 200 mg Oral Daily Corbin Adonis, REEL WORKER 200 mg at11/18/24 1031 Physical Exam: Vitals: [...] S/p Left BKA with ampushield and stump element setter C/D/I Skin: No skin breakdown to exposed [...] interrogation ordered for post- OP. Presenting rhythm: AM-UNDERGROUND CONDUIT INSTALLER @ 69 bpm. Underlying rhythm: No ventricular response greater than 40 bpm. AM-UNDERGROUND CONDUIT INSTALLER @ 84.8%. Battery and device parameters evaluated [...] from the original note were not included. [facility] Consult progress Note Name: [...] try to reach Dr. Saritha Coffey at [facility] tomorrow Current antibiotic/day of therapy: [...] 0849 Sign Ena Mtz MD, FACP, CWSP [facility] Infectious Diseases Available via [employer] SUBJECTIVE Afebrile, status post AICD extraction CURRENT [...] not compromised. This report was generated using [employer] Speaking dictation software. Although every attempt has been made by the provider to proofread this document, occasional misspellings and typographical errors may still be present. * Valencia LauSHUBHAM - 11/18/2024 8:48 AM EST Images from the original note were not included. [facility] PROGRESS NOTE Outpatient Communications Tower Climber: [facility] Assessment & Plan Assessment 63 year old male with hypertension, hyperlipidemia, diabetes, CKD stage III, peripheral artery disease, diabetes, foot infection with osteomyelitis, complete heart block s/p dual chamber pacemaker [id number], atrial fibrillation s/p multiple ablations and cardioversions [...] injection 5,000 Units On hold since Fri11/16/2024 [id number] until manually unheld; held by Herberth Whitmore [...] by 8 bpm Confirmed by MD Claude, [facility] ([id number]) on 11/07/2024 6:25:53 PM TATIANNA [...] Compared to previous outside study report from [facility] on 08/05/2024, Mitral and tricuspid regurgitation were not previously reported. Recommend transesophageal echocardiogram if clinically indicated. Brain MRI 11/12/2024 No acute intracranial findings or suspicious intracranial lesions. No septic emboli. All additional appropriate imaging studies within the past 24 hours reviewed - images reviewed and independently interpreted. Sign Valencia Lau [facility]N [facility] [place] 11/18/2024 8:48 AM * Cristina Rodriguez APRN [...] PM ROOM, ICD/PACER/LOOP [facility] KARLA [facility] Arrhythmi Current Facility-Administered Medications: acetaminophen (TYLENOL) tablet 975 mg, 975 mg, Oral, Q6H JUDSON, Corbin Adonis, REEL WORKER, 650 mg at 11/18/24 0305 acetaminophen (TYLENOL) tablet 975 mg, 975 mg, Oral, Q6H PRN, Corbin Adonis, REEL WORKER amiODARONE (PACERONE) tablet 200 mg, 200 mg, Oral, Daily, Corbin Adonis, REEL WORKER, 200 mg at 11/17/24 0813 amLODIPine (NORVASC) tablet 10 mg, 10 mg, Oral, Daily, Corbin Adonis, REEL WORKER, 10 mg at 11/17/24 0816 benzocaine-menthol (CHLORASEPTIC) 6-10 MG lozenge 1 lozenge, 1 lozenge, Mouth/Throat, Q2H PRN, Gretel Hinds, REEL WORKER bisacodyl (DULCOLAX) suppository 10 mg, 10 mg, Rectal, Daily PRN, Corbin Lamb, REEL WORKER bumetanide (BUMEX) injection 1 mg, 1 mg, Intravenous, Q24H, Corbin Lamb, REEL WORKER, 1 mg at 11/17/24 0813 buPROPion (WELLBUTRIN SR) 12 hr tablet 150 mg, 150 mg, Oral, BID, Corbin Adonis, REEL WORKER, 150 mg at11/17/24 2125 calcium carbonate (TUMS) chewable tablet 1,000 mg, 1,000 mg, Oral, Q12H PRN, Corbin Lamb, REEL WORKER calcium citrate (CALCITRATE) tablet 950 mg, 950 mg, Oral, BID with meals, Corbin Adonis, REEL WORKER, 950 mg at 11/17/24 0813 carboxymethylcellulose (REFRESH PLUS) 0.5 % ophthalmic solution 2 drop, 2 drop, Each Eye, Q2H PRN, Gretel Hinds, REEL WORKER chlorhexidine gluconate 2 % wipes - urethral catheter CHG application, , Topical, Daily, Corbin Barrigaabrese, REEL WORKER cholecalciferol tablet 2,000 Units, 2,000 Units, Oral, Daily, Corbin Adonis, REEL WORKER, 2,000 Units at 11/17/24 0815 cyanocobalamin (VITAMIN B-12) tablet 2,500 mcg, 2,500 mcg, Oral, Daily, Corbin Adonis, REEL WORKER, 2,500 mcg at 11/17/24 0814 DAPTOmycin (CUBICIN) 975 mg in sodium chloride (NS) 0.9 % 50 mL IVPB, 10 mg/kg (Adjusted), Intravenous, Q24H, Corbin Adonis, REEL WORKER, Last Rate: 0 mL/hr at 11/16/24 1712, 975 mg at 11/17/24 1420 donepezil (ARICEPT) tablet 10 mg, 10 mg, Oral, QAM, Corbin Adonis, REEL WORKER, 10 mg at 11/17/24 0816 [Provider Held] empagliflozin (JARDIANCE) 25 mg, 25 mg, Oral, Daily, Corbin Adonis, REEL WORKER, 25 mg at 11/04/24 0756 folic acid (FOLVITE) tablet 1 mg, 1 mg, Oral, Daily, Corbin Lamb REEL WORKER, 1 mg at 11/17/24 0813 [Provider Held] glimepiride (AMARYL) tablet 2 mg, 2 mg, Oral, Daily with breakfast, Corbin Lamb REEL WORKER, 2 mg at 11/04/24 0757 [Provider Held] heparin (porcine) 5000 unit/mL injection 5,000 Units, 5,000 Units, Subcutaneous, Q8H JUDSON, Corbindenise Lamb REEL WORKER, 5,000 Units at 11/16/24 1714 HYDROmorphone (DILAUDID) tablet 2 mg, 2 mg, Oral, Q3H PRN, Corbin Lamb REEL WORKER, 2 mg at 540 HYDROmorphone (DILAUDID) tablet 4 mg, 4 mg, Oral, Q3H PRN, Corbin Lamb REEL WORKER, 4 mg at 213 insulin glargine (LANtus/SEMGLEE) 100 units/mL injection 10 Units, 10 Units, Subcutaneous, Daily, Corbin Lamb REEL WORKER insulin lispro (HumaLOG/ADMELOG) 100 units/mL injection 1-6 Units, 1-6 Units, Subcutaneous, TID with meals, Corbin Lamb REEL WORKER, 1 Units at 11/17/24 1856 insulin lispro (HumaLOG/ADMELOG) 100 units/mL injection 3 Units, 3 Units, Subcutaneous, TID with meals, Corbin Lamb REEL WORKER, 3 Units at 11/17/24 1213 ipratropium-albuterol (DUONEB) 0.5-2.5 mg/3 mL nebulizer solution 3 mL, 3 mL, Nebulization, Q2H PRN, Corbin Lamb REEL WORKER, 3 mL at 11/07/24 1025 lactulose (ENULOSE) 10 gm/15 mL solution 20 g, 20 g, Oral, Q4H PRN, Corbin Lamb REEL WORKER melatonin tablet 3 mg, 3 mg, Oral, Nightly PRN, Corbin Lamb REEL WORKER, 3 mg at 11/16/24 2215 methocarbamol (ROBAXIN) tablet 1,000 mg, 1,000 mg, Oral, 4x Daily, Corbin Adonis, REEL WORKER, 1,000 mgat 11/17/242125 metoPROLOL TARTRATE (LOPRESSOR) tablet 50 mg, 50 mg, Oral, BID, Corbin Adonis, REEL WORKER, 50 mg at 11/17/242123 multivitamin with minerals tablet 1 tablet, 1 tablet, Oral, Daily, Cobrin Adonis, REEL WORKER, 1 tabletat 11/17/24 0816 naloxone (NARCAN) 0.4 mg/mL injection 0.4 mg, 0.4 mg, Intravenous, Q5 Min PRN, Corbin Adonis, REEL WORKER naloxone (NARCAN) 0.4 mg/mL injection 0.4 mg, 0.4 mg, Intravenous, Q5 Min PRN, Corbin Adonis, REEL WORKER nicotine (NICODERM CQ) 21 MG/24HR patch 1 patch, 1 patch, Transdermal, Daily, Corbin Adonis, REEL WORKER, 1 patch at 11/17/24 0816 ondansetron (ZOFRAN) injection 4 mg, 4 mg, Intravenous, Q6H PRN, Corbin Adonis, REEL WORKER, 4 mg at 11/17/24 1639 PANTOprazole (PROTONIX) EC tablet 40 mg, 40 mg, Oral, Daily, Corbin Adonis, REEL WORKER, 40 mg at 11/17/24 0815 polyethylene glycol (miraLAx) packet 17 g, 17 g, Oral, Daily, Corbin Adonis, REEL WORKER, 17 g at 11/17/24 1212 [Provider Held] pravastatin (PRAVACHOL) tablet 20 mg, 20 mg, Oral, Daily, Corbin Adonis, REEL WORKER pregabalin (LYRICA) capsule 100 mg, 100 mg, Oral, TID, Corbin Adonis, REEL WORKER, 100 mg at 11/17/242123 senna-docusate (SENNA-S) 8.6-50 MG tablet 2 tablet, 2 tablet, Oral, BID, Corbin Adonis, REEL WORKER, 2 tablet at 11/17/242124 thiamine mononitrate (VITAMIN B-1) tablet 200 mg, 200 mg, Oral, Daily, Corbin Adonis, REEL WORKER, 200 mg at 11/17/24 0814 Vitals: 11/18/24 [...] (218 lb 11.1 oz) Height: Cristina Rodriguez, REEL WORKER 11/18/24 9:18 AM Addendum: From an EP perspective, he can re-start his Eliquis today. Cristina Rodriguez, REEL WORKER 11/18/24 9:19 AM * Sri Pena RN - 11/18/2024 8:25 AM EST Attached media from the original note were not included. Pacemaker evaluation completed on B10E, device interrogation ordered for post- OP. Presenting rhythm: AM-UNDERGROUND CONDUIT INSTALLER @ 69 bpm. Underlying rhythm: No ventricular response greater than 40 bpm. AM-UNDERGROUND CONDUIT INSTALLER @ 84.8%. Battery and device parameters evaluated [...] level of independence with self-care tasks. Current [facility] Daily Activity Score: 16 Precautions/Restrictions: fall, aspiration, pacemaker, isolation: contact, weight bearing (NWBing to L residual limb with element setter and nutmeggar in place, skin) Rehab Plan [...] bearing (NWBing to L residual limb with element setter and nutmeggar in place, skin) Pain Assessment [...] Progressive Mobility Level Achieved Edge of Bed [facility] Daily Activity Putting on and taking off Lower Body Clothing? 3 Bathing (including washing/rinsing/drying)? 2 Toileting (includes using toilet, bedpan, or urinal)? 2 Putting on and taking off upper body clothing? 3 Taking care of personal grooming such as brushing teeth? 3 Eating meals? 3 [facility] Daily Activity Score 16 Therapy [...] OT) goal ongoing Bathing Goal 1 (OT) Posey Level/Cues Needed (Bathing Goal 1, OT) minimum [...] Frame (Dressing Goal 1, OT) 1 week Posey/Cues Needed (Dressing Goal 1, OT) minimum assist (75% or more patient effort) Toileting Goal 1 (OT) Activity/Device (Toileting Goal 1, OT) toileting skills, all Progress/Outcome (Toileting Goal 1, OT) goal revised this date Time Frame (Toileting Goal 1, OT) 1 week [place]osey Level/Cues Needed (Toileting Goal 1, OT) minimum assist (75% or more patient effort) Sign: Katy Rodgers OT * Valencia Lau APRN - 11/17/2024 10:51 AM EST Images from the original note were not included. 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 Underlying rhythm: SB @ [...] PO, Daily Given, 200 mg at 11/17 0813 amLODIPine (NORVASC) tablet 10 mg 10 mg, [...] with meals Given, 2 Units at 11/17 0814 insulin lispro (HumaLOG/ADMELOG) 100 units/mL injection 3 Units 3 Units, SC, TID with meals Given, 3 Units at 11/17 08 methocarbamol (ROBAXIN) tablet 1,000 mg 1,000 mg, PO, 4x Daily Given, 1,000 mg at 11/17 08 metoPROLOL TARTRATE (LOPRESSOR) tablet 50 mg 50 mg, PO, BID Given, 50 mg at 11/17 0816 multivitamin with minerals tablet 1 tablet 1 tablet, PO, Daily Given, 1 tablet at 11/17 0816 nicotine (NICODERM CQ) 21 MG/24HR patch 1 patch 1 patch, TD, Daily Patch Applied, 1 patch at 11/17 08 PANTOprazole (PROTONIX) EC tablet 40 mg 40 mg, PO, Daily Given, 40 mg at 11/17 0815 polyethylene glycol (miraLAx) packet 17 g [...] days Lab Units 11/17/24 0720 11/17/24 0500 11/16/24 2009 11/16/24 0737 11/16/24 0723 11/15/24 1109 11/15/24 0808 [...] by 8 bpm Confirmed by MD Claude, [facility] ([id number]) on 11/07/2024 6:25:53 PM TATIANNA [...] Compared to previous outside study report from [facility] on 08/05/2024, Mitral and tricuspid regurgitation were not previously reported. Recommend transesophageal echocardiogram if clinically indicated. Brain MRI 11/12/2024 No acute intracranial findings or suspicious intracranial lesions. No septic emboli. All additional appropriate imaging studies within the past 24 hours reviewed - images reviewed and independently interpreted. Sign Valencia Lau [facility]N [facility] Heart [facility] V[facility] [place] 11/17/2024 10:51 AM Associated attestation - Devon [...] MD 11/17/2024 10:06 AM * Roberto Carranza, WARP DYEING TENDER - 11/17/2024 9:36 AM EST Physical Therapy Progress Note Precautions/Restrictions: fall, aspiration, other (see comments) (Skin) Assessment Summary: Patient seen for PT follow up. L residual limb element setter and nutmegger donned. Performed bed mobility and [...] level of independence with functional mobility. Current [facility] Basic Mobility Score: 16 Rehab [...] Progressive Mobility Level Achieved Transferring to Chair [facility] Basic Mobility Turning from your [...] Climbing 3-5 steps with a railing? 1 [facility] Basic Mobility Score 16 Therapy [...] from the original note were not included. [facility] INFECTIOUS DISEASE Consult progress Note Name: [...] 0849 Sign Ena Mtz MD, FACP, CWSP [facility] Infectious Diseases Available via [employer] SUBJECTIVE Afebrile. No new complaints Feels better. [...] not compromised. This report was generated using [employer] Naturally Speaking dictation software. Although every attempt [...] were not included. Coverage for Dr. Mtz [facility] ID Progress Note Name: Blas Genao [...] Soft, nontender Extremities: Left BKA stump with element setter garment, and ampul sheIld LABORATORY AND DIAGNOSTIC [...] injection 5,000 Units 5,000 Units Subcutaneous Q8H [facility] Luis Degroot MD 5,000 Units [...] not compromised This report was generated using RadioScape dictation software. Although every attempt has been made by the provider to proofread this document, occasional misspellings and typographical errors Sign Chris Taylor MD, [facility], [facility] Infectious Diseases Available via [employer] 11/16/2024 11:27 AM * Maddison Villalpando MD - 11/15/2024 5:16 PM EST [facility] MEDICINE PROGRESS NOTE Assessment [...] 61 [phone] 61 Resp: 18 18 Temp: 97 ??F (36.1 [...] were not included. Coverage for Dr. Mtz [facility] ID Progress Note Name: Blas Genao [...] faecium -10/27: Left foot wound culture at [place]: MRSA, Enterococcus faecalis, VRE, Corynebacterium species and [...] 11/14/24 1031 11/13/24 0812 11/13/24 0730 11/11/24 02311/11/24 0200 SODIUM mmol/L -- 131* -- -- [...] injection 5,000 Units 5,000 Units Subcutaneous Q8H [facility] Luis Degroot MD 5,000 Units [...] Daily Luis Degroot MD 1 tablet at 1 naloxone (NARCAN) 0.4 mg/mL injection 0.4 mg [...] not compromised This report was generated using RadioSc[employer] dictation software. Although every attempt has been made by the provider to proofread this document, occasional misspellings and typographical errors Sign Chris Taylor MD, FIDSA, FACP [facility] Infectious Diseases Available via [employer] 11/15/2024 1:10 PM * Devon Lazo MD - 11/15/2024 1:00 PM EST Images from the original note were not included. [facility] PROGRESS NOTE Outpatient Communications Tower Climber: Assessment & Plan Assessment 63 year old male with hypertension, hyperlipidemia, diabetes, CKD stage III, peripheral artery disease, diabetes, foot infection with osteomyelitis, complete heart block s/p dual chamber pacemaker [id number], atrial fibrillation s/p multiple ablations and cardioversions [...] at 0752 until manually unheld; held by Kamal Kwasi, MDHold Reason: NPO On hold since Fri11/10/2024 [...] by 8 bpm Confirmed by MD Claude, [facility] ([id number]) on 11/07/2024 6:25:53 PM All additional appropriate imaging studies within the past 24 hours reviewed - images reviewed and independently interpreted. Sign Devon Lazo MD [facility] [place] 11/15/2024 1:00 PM * Elida Berger OT [...] [facility] Progress Towards Goals: progress toward functional goals is good Outcome Measures: The Activity Measure for Post-Acute Care (AM-PAC) Daily Activity Inpatient Short Form (6-clicks) zakiya standardized measure used to quantify deficits in self-care. The total score of the measure ranges from 6-24. A higher score indicates a higher level of independence with self-care tasks. Current [facility] Daily Activity Score: 17 Precautions/Restrictions: fall, other [...] Progressive Mobility Level Achieved Transferring to Chair [facility] Daily Activity Putting on and taking off Lower Body Clothing? 3 Bathing (including washing/rinsing/drying)? 2 Toileting (includes using toilet, bedpan, or urinal)? 2 Putting on and taking off upper body clothing? 3 Taking care of personal grooming such as brushing teeth? 3 Eating meals? 4 [facility] Daily Activity Score 17 Therapy [...] Villalpando MD - 11/14/2024 2:48 PM EST [facility] MEDICINE PROGRESS NOTE Assessment [...] Villalpando MD - 11/13/2024 3:26 PM EST [facility] MEDICINE PROGRESS NOTE Assessment [...] Vitals: 11/12/24 1420 11/12/24 1750 11/12/24 2035 11/12/24 2050 BP: (!) 110/53 130/62 130/60 Pulse: 61 [...] from the original note were not included. [facility] Inpatient Progress Note Date of admission:11/02/2024 Today's date: 11/13/2024 Primary Communications Tower Climber: [facility] Assessment & Plan 63 year old male with hypertension, hyperlipidemia, diabetes, CKD stage III, peripheral artery disease, diabetes, foot infection with osteomyelitis, complete heart block s/p dual chamber pacemaker [id number], atrial fibrillation s/p multiple ablations and cardioversions [...] -Pacer interrogation 11/11/24: Presenting rhythm: AP / UNDERGROUND CONDUIT INSTALLER @ 60 bpm. Underlying rhythm: SB @ [...] pain, dizziness, palpitations, syncope Objective: Telemetry Reviewed: UNDERGROUND CONDUIT INSTALLER 60 Last Vitals Pulse:63,Resp:18,BP:116/60,SpO2:96 %,Weight:120 kg (264 [...] Compared to previous outside study report from [facility] on 08/05/2024, Mitral and tricuspid regurgitation [...] Villalpando MD - 11/12/2024 4:39 PM EST [facility] MEDICINE PROGRESS NOTE Assessment [...] Danielle MD - 11/12/2024 3:33 PM EST [facility] ID Progress Note Length of Stay: 10 Follow up for polymicrobial bacteremia with MRSA, Enterococcus; left foot infection status post BKA; pacemaker infection Antibiotics/antivirals/immunomodulators: Daptomycin (2/5-) Ceftaroline (11/05-) Meropenem (11/03-11/05) Aztreonam (11/07-11/10) Assessment [...] final timing Time spent on chart/literature review, krhy-so-vtte discussion and exam with patient, and documentation: [...] Resolved Problems: Noemí Danielle MD Available on [employer] 11/12/2024 3:33 PM * POOJA Allen - 11/12/2024 11:59 AM EST Images from the original note were not included. [facility] Inpatient Progress Note Date of admission:11/02/2024 Today's date: 11/12/2024 Primary Communications Tower Climber: [facility] Assessment & Plan 63 year old male with hypertension, hyperlipidemia, diabetes, CKD stage III, peripheral artery disease, diabetes, foot infection with osteomyelitis, complete heart block s/p dual chamber pacemaker [id number], atrial fibrillation s/p multiple ablations and cardioversions [...] Pacer eval 11/11/24: Presenting rhythm: AP / UNDERGROUND CONDUIT INSTALLER @ 60 bpm. Underlying rhythm: SB @ [...] No lightheadedness or dizziness. Objective: Telemetry Reviewed: UNDERGROUND CONDUIT INSTALLER 60 Last Vitals Pulse:67,Resp:18,BP:(!) 113/53,SpO2:(!) 91 %,Weight:120 [...] 4x Daily Given, 1,000 mg at 11/12 0837 metoPROLOL TARTRATE (LOPRESSOR) tablet 50 mg 50 mg, PO, BID Given, 50 mg at 11/12 0836 multivitamin with minerals tablet 1 tablet 1 tablet, PO, Daily Given, 1 tablet at 11/12 0936 nicotine (NICODERM CQ) 21 MG/24HR patch 1 [...] Compared to previous outside study report from [facility] on 08/05/2024, Mitral and tricuspid regurgitation [...] PM EST I agree with the pharmacy helper note. * Elida Berger, OT - 11/12/2024 [...] level of independence with self-care tasks. Current [facility] Daily Activity Score: 16 Precautions/Restrictions: [...] I did even better today Flowsheet Data 02/14/25 1008 OT Time and Intention OT Follow-Up [...] Progressive Mobility Level Achieved Transferring to Chair [facility] Daily Activity Putting on and taking off Lower Body Clothing? 2 Bathing (including washing/rinsing/drying)? 2 Toileting (includes using toilet, bedpan, or urinal)? 2 Putting on and taking off upper body clothing? 3 Taking care of personal grooming such as brushing teeth? 3 Eating meals? 4 [facility] Daily Activity Score 16 Therapy [...] ordered for function. Presenting rhythm: AP / UNDERGROUND CONDUIT INSTALLER @ 60 bpm. Underlying rhythm: SB @ [...] of 40-44% and patent foramina well with [id number] shunting and moderate to severe TR MRI [...] concerns validated and emotional support provided; nurse fitness services manager made aware. Resources: Patient informed of [...] from nurse navigator within 24-[facility] to discuss progress and/or any concerns. [...] were not included. Coverage for Dr. Mtz [facility] Progress Note Name: Blas Genao [...] faecium -10/27: Left foot wound culture at [place]: MRSA, Enterococcus faecalis, VRE, Corynebacterium species and [...] nontender Left BKA stump site covered in element setter garment and ampu sheild LABORATORY AND DIAGNOSTIC [...] tablet 975 mg 975 mg Oral Q6H [facility] Rafiq Chakraborty MD 975 mg [...] injection 5,000 Units 5,000 Units Subcutaneous Q8H [facility] Haven Bach APRN 5,000 Units at [...] injection 1-6 Units 1-6 Units Subcutaneous Q4H JUDSON POOJA Crews [Provider Held] insulin lispro (HumaLOG/ADMELOG) [...] not compromised This report was generated using [employer] Speaking dictation software. Although every attempt has been made by the provider to proofread this document, occasional misspellings and typographical errors Sign Chris Taylor MD, [facility]ID[facility] Infectious Diseases Available via [employer] 11/11/2024 10:52 AM * Olimpia Lainez, FanyD [...] prn; continue to optimize current doses Olimpia Lainez PharmD * aNni Hollis PA-C - 11/11/2024 7:37 AM EST [...] 4 mg q3h PRN for severe pain ([id number]). 1x dose of liquid dilaudid 1mg given [...] - Continue nicotine patch - Repeat CXR / PM with improving bilateral pulmonary congestion, final [...] Compared to previous outside study report from [facility] on 08/05/2024, Mitral and tricuspid regurgitation [...] Q6H JUDSON Given, 975 mg at 11/11 023 amiODARONE (PACERONE) tablet 200 mg 200 mg, [...] mg, PO, TID Given, 150 mg at 02/12 2037 senna-docusate (SENNA-S) 8.6-50 MG tablet 2 [...] Pulmonary, Critical Care, and Sleep Medicine [address], [address], [place] [address] Critical Care Progress Note Assessment & Plan [...] Compared to previous outside study report from [facility] on 08/05/2024, Mitral and tricuspid regurgitation [...] Case IDs Date Procedure Surgeon Location Status [id number] 11/05/24 LEFT BELOW KNEE AMPUTATION [place] [...] Q12H JUDSON Given, 81 mg at 11/10 09 buPROPion (WELLBUTRIN SR) 12 hr tablet 150 [...] empagliflozin (JARDIANCE) 25 mg On hold since [facility] 11/04/2024 at 1503 until manually unheld; [...] (AMARYL) tablet 2 mg On hold since [facility] 11/04/2024 at 1503 until manually unheld; [...] ruled out. This report was generated using Genome Speaking dictation software. Although every attempt has [...] out/in endocarditis Plan -NWB, ampushield and stump element setter -Currently on ASA BID and subcutaneous heparin- [...] redressed with xeroform, abds and applied the element setter garment and ampu shield. Labs: Recent Labs [...] scan copy into pt's chart. His niece Jesscia was visiting and she brought pt's copies home with her per his request. Pt with no additional concerns at this time for SW and intervention complete. * Chris Taylor MD - 11/10/2024 11:34 AM EST Images from the original note were not included. Coverage for Dr. Mtz [facility] ID Progress Note Name: Blas Genao [...] faecium -10/27: Left foot wound culture at [place]: MRSA, Enterococcus faecalis, VRE, Corynebacterium species and [...] injection 5,000 Units 5,000 Units Subcutaneous Q8H [facility] Haven Bach APRN 5,000 Units at [...] Units 5 Units Subcutaneous TID with meals Euince Garrison APRN 5 Units at 11/09/24 1313 [...] Daily Rafiq Chakraborty MD 40 mg at 11/10/24 0912 polyethylene glycol (miraLAx) packet 17 g 17 [...] not compromised This report was generated using Genome Speaking dictation software. Although every attempt has been made by the provider to proofread this document, occasional misspellings and typographical errors Sign Chris Taylor MD, [facility] Infectious Diseases Available via [employer] 11/10/2024 11:34 AM * POOJA Jimenez - 11/10/2024 10:45 AM EST Images from the original note were not included. [facility] Progress Note Date of admission:11/02/2024 Today's date: 11/10/2024 Primary Communications Tower Climber: [facility] Assessment & Plan 63 year old male with hypertension, hyperlipidemia, diabetes, CKD stage III, peripheral artery disease, diabetes, foot infection with osteomyelitis, complete heart block s/p dual chamber pacemaker [id number], atrial fibrillation s/p multiple ablations and cardioversions [...] abdomen much less distended Objective: Telemetry Reviewed: UNDERGROUND CONDUIT INSTALLER 60 Last Vitals Pulse:60,Resp:17,BP:130/60,SpO2:94 %,Weight:120 kg (264 [...] PO, BID Given, 150 mg at 11/10 0910 calcium citrate (CALCITRATE) tablet 950 mg 950 [...] PO, TID Given, 150 mg at 11/10 09 senna-docusate (SENNA-S) 8.6-50 MG tablet 2 tablet 2 tablet, PO, BID Given, 2 tablet at 11/10 09 sodium chloride (NS) 0.9 % infusion [...] Compared to previous outside study report from [facility] on 08/05/2024, Mitral and tricuspid regurgitation [...] Compared to previous outside study report from [facility] on 08/05/2024, Mitral and tricuspid regurgitation [...] 11/03: negative - Left leg tissue/bone pathology 2/7: pending - S/p Meropenem (11/03-11/05) - Continue [...] Given During Downtime, 975 mg at 11/10 040 amiODARONE (PACERONE) tablet 200 mg 200 mg, PO, Daily Ordered amLODIPine (NORVASC) tablet 10 mg 10 mg, PO, Daily Given, 10 mg at 11/09 09 aspirin enteric coated (ECOTRIN LOW STRENGTH) [...] of Pulmonary, Critical Care, and Sleep Medicine [address] [place] [address], [address], [place] [address] Critical Care Progress Note Assessment & Plan [...] Compared to previous outside study report from [facility] on 08/05/2024, Mitral and tricuspid regurgitation [...] the unit or at the nursing station [facility] floor where the patient is [...] Case IDs Date Procedure Surgeon Location Status [id number] 11/05/24 LEFT BELOW KNEE AMPUTATION [place] Camejo [...] ruled out. This report was generated using RadioScape dictation software. Although every attempt has been [...] were not included. Coverage for Dr. Mtz [facility] Progress Note Name: Blas Genao [...] faecium -10/27: Left foot wound culture at [place]: MRSA, Enterococcus faecalis, VRE, Corynebacterium species and [...] Soft nontender Left BKA stump site in element setter LABORATORY AND DIAGNOSTIC DATA: Lab and imaging [...] tablet 975 mg 975 mg Oral Q6H [facility] Rafiq Chakraborty MD 975 mg at 11/09/24 [...] mL IVPB 10 mg/kg (Adjusted) Intravenous Q24H Raifq Chakraborty MD Stopped at 11/08/24 1603 glucose [...] injection 5,000 Units 5,000 Units Subcutaneous Q8H [facility] Haven Bach APRN HYDROmorphone (DILAUDID) [...] not compromised This report was generated using Biophytis Naturally Speaking dictation software. Although every attempt has been made by the provider to proofread this document, occasional misspellings and typographical errors Sign Chris Taylor MD, [facility], [facility] Infectious Diseases Available via [employer] 11/09/2024 11:55 AM * Deep Bales, PharmD [...] included. [facility] CARDIOLOGY PROGRESS NOTE Outpatient Communications Tower Climber: Communications Tower Climber at [facility] in [place] Assessment & Plan Assessment Blas Genao is [...] leaflets. He will require further evaluation with TATINANA. Plan -pending TATIANNA; I have contacted echo [...] by 8 bpm Confirmed by MD Claude, [facility] ([id number]) on 11/07/2024 6:25:53 PM ECHO: [...] Compared to previous outside study report from [facility] on 08/05/2024, Mitral and tricuspid regurgitation were not previously reported. Recommend transesophageal echocardiogram if clinically indicated. All additional appropriate imaging studies within the past 24 hours reviewed - images reviewed and independently interpreted. Sign Gema Jane APRN [facility] [place] 11/09/2024 9:00 AM * Roberto Carranza PTA - 11/09/2024 8:40 AM EST Physical Therapy Progress Note Precautions/Restrictions: fall, isolation: contact, pacemaker, other (see comments) (NWB LLE; Skin) Assessment Summary: Patient seen for PT follow up. Performed bed mobility, transfers and sidesteps this session. Required Ax2 for mobility. Adjusted nutmegger for optimal fit and protection of residual limb. Per orders patient is to have element setter on AAT, noted that residual limb was wrapped with srinivas wrap vs element setter. Reached out to orthopedic PA in regards to element setter for patient. Patient is motivated to participate [...] level of independence with functional mobility. Current [facility] Basic Mobility Score: 14 Rehab [...] Progressive Mobility Progressive Mobility Level Achieved Standing [facility] Basic Mobility Turning from your [...] Climbing 3-5 steps with a railing? 1 [facility] Basic Mobility Score 14 Therapy [...] 1, PT) goal ongoing Sign: Roberto Carranza, WARP DYEING TENDER Associated attestation - Abhinav Pope, PT - 11/09/2024 2:02 PM EST This treatment was performed under the supervision of the supervising PT. Any changes made to treatment plan have been discussed prior with supervising PT. I have read and agree with the documentation provided and any changes made. * Katy Velásquez Ana Maria, OT - 11/09/2024 8:38 AM EST Occupational [...] level of independence with self-care tasks. Current [facility] Daily Activity Score: 15 Precautions/Restrictions: [...] Progressive Mobility Level Achieved Edge of Bed [facility] Daily Activity Putting on and taking off Lower Body Clothing? 2 Bathing (including washing/rinsing/drying)? 2 Toileting (includes using toilet, bedpan, or urinal)? 1 Putting on and taking off upper body clothing? 3 Taking care of personal grooming such as brushing teeth? 3 Eating meals? 4 [facility] Daily Activity Score 15 Therapy [...] OT goal 1 Transfer Goal 1 (OT) Posey Level/Cues Needed (Transfer Goal 1, OT) minimum [...] of Pulmonary, Critical Care, and Sleep Medicine [address] [place] [address], [address], [place] [address] Critical Care Progress Note Assessment & Plan [...] Compared to previous outside study report from [facility] on 08/05/2024, Mitral and tricuspid regurgitation [...] the unit or at the nursing station [facility] floor where the patient is [...] Case IDs Date Procedure Surgeon Location Status [id number] 11/05/24 LEFT BELOW KNEE AMPUTATION [place] Camejo [...] ruled out. This report was generated using Bi[employer] Naturally Speaking dictation software. Although every attempt [...] were not included. Coverage for [facility] Progress Note Name: Blas Genao [...] 11/05 -11/06 ,11/07,blood cultures = NGTD -11/04 (/) bld cx: G+ cocci in clusters -11/02(10/31) blood cultures: MRSA, Enterococcus faecalis, Enterococcus faecium -10/27: Left foot wound culture at [place]: MRSA, Enterococcus faecalis, VRE, Corynebacterium species and [...] nontender Extremities: Left BKA site-> No drain. Rough Rib Grader in place LABORATORY AND DIAGNOSTIC DATA: [...] 1 Tube Oral Q15 Min PRN Kayla Yeyo REEL WORKER Or glucose (GLUTOSE 15) 40 % oral gel 75 g 2 Tube Oral Q15 Min PRN Kayla Orona, REEL WORKER Or dextrose 50 % solution 12.5 g 12.5 g Intravenous Q15 Min PRN Kayla Orona, REEL WORKER Or dextrose 50 % solution 25 g 25 g Intravenous Q15 Min PRN Kaylarakesh Orona REEL WORKER Or glucagon (GLUCAGEN) injection 1 mg 1 [...] Rafiq Chakraborty MD 150 mg at 11/08/24 0904 senna-docusate (SENNA-S) 8.6-50 MG tablet 2 [...] not compromised This report was generated using Genome Speaking dictation software. Although every attempt has been made by the provider to proofread this document, occasional misspellings and typographical errors Sign Chris Taylor MD, FIDSA, FACP [facility] Infectious Diseases Available via [employer] 11/08/2024 10:02 AM * [place] Camejo MD - 11/08/2024 9:46 AM EST Blas's clinical progress and CP decompensation noted. Appreciate Medical management and CT recommendations. Drain out, wound clean, and Rough Rib Grader in place. Will continue to follow. * Gema BeyerrakeshghulamSHUBHAM - 11/08/2024 9:38 AM EST Images from the original note were not included. [facility] CARDIOLOGY PROGRESS NOTE Outpatient Communications Tower Climber: Communications Tower Climber at [facility] in [place] Assessment & Plan Assessment Blas Genao is [...] by 8 bpm Confirmed by MD Claude, [facility] ([id number]) on 11/07/2024 6:25:53 PM ECHO: [...] Compared to previous outside study report from [facility] on 08/05/2024, Mitral and tricuspid regurgitation were not previously reported. Recommend transesophageal echocardiogram if clinically indicated. All additional appropriate imaging studies within the past 24 hours reviewed - images reviewed and independently interpreted. Sign Gema Jane APRN [facility] [place] 11/08/2024 9:38 AM * Shay Martin MD - 11/08/2024 7:40 AM EST Images from the original note were not included. Division of Pulmonary, Critical Care, and Sleep Medicine [address], [address], [place] [address] Critical Care Progress Note Assessment & Plan [...] Compared to previous outside study report from [facility] on 08/05/2024, Mitral and tricuspid regurgitation [...] Case IDs Date Procedure Surgeon Location Status [id number] 11/05/24 LEFT BELOW KNEE AMPUTATION [place] Camejo [...] ruled out. This report was generated using Genome Speaking dictation software. Although every attempt has been made by the provider to proofread this document, occasional misspellings and typographical errors may still be present. Sign: Olurotimi O Adekolu, MD 11/08/2024 7:40 AM * POOJA Hatch - 11/08/2024 6:36 AM EST Orthopaedic Progress Note A/P: 63 y.o. male POD# 3 L BKA, now with acute hypoxia/cardiogenic pulmonary edema - Weight bearing status: NWB left lower extremity, continue LLE nutmegger and element setter. - skin checks to LLE bid - [...] CPAP 15L, sats drop when removed LLE: nutmegger/element setter in place. Thigh soft Labs: Recent Labs [...] were not included. Coverage for Dr. Mtz [facility] Progress Note Name: Blas Genao [...] 11/05 -10/27: Left foot wound culture at [place]: MRSA, Enterococcus faecalis, VRE, Corynebacterium species and [...] -Ceftaroline, 11/05 Plan: Patient was upgraded to [place] 11 stepdown secondary to increased oxygen requirement, [...] tablet 975 mg 975 mg Oral Q6H [facility] POOJA De Souza 975 mg at 11/07/24 0814 amiODARONE (PACERONE) tablet 200 mg 200 mg Oral BID POOJA De Souza 200 mg at 11/07/24 0817 amLODIPine (NORVASC) tablet 10 mg 10 mg Oral Daily POOJA De Souza 10 mg at 11/07/24 0817 aspirin enteric coated (ECOTRIN LOW STRENGTH) tablet 81 mg 81 mg Oral Q12H [facility] POOJA De Souza81 mg at [...] BID POOJA De Souza 2 tablet at 11/07/24817 sodium chloride (NS) [...] not compromised This report was generated using Genome Speaking dictation software. Although every attempt has been made by the provider to proofread this document, occasional misspellings and typographical errors Sign Chris Taylor MD, FID, [facility] Infectious Diseases Available via [employer] 11/07/2024 11:30 AM * Lei Diaz MD [...] Procedure: LEFT LOWER EXTREMITY ANGIOGRAM; Surgeon: Delbert Mcintohs MD; Location: Main OR; Service: Peripheral Vascular; [...] to prior. Interpreted by: Roberto Tolbert MD Tube Heater Sign: Lei Diaz MD 11/07/2024 11:05 AM [...] from the original note were not included. [facility] MEDICINE PROGRESS NOTE Assessment [...] started BiPap rescuse and transferred to [facility]. Plan Principal Problem: Acute osteomyelitis of left [...] Diet Diabetic/ Calorie Controlled; Carb Counting 60g/meal 0459-8484 kcal DVT Px: SCDs - RIGHT (Knee High) Status: Full Code Consults placed: Procedures Inpatient consult to Internal Medicine Inpatient consult to Infectious Diseases (Specify provider ) Inpatient consult to Social Work Inpatient consult to Anesthesiology Inpatient consult to cardiology ([facility]) Inpatient consult to cardiac surgery Inpatient [...] Case IDs Date Procedure Surgeon Location Status [id number] 11/05/24 LEFT BELOW KNEE AMPUTATION [place] Camejo MD [facility] OR Comp Plan WB Status: NWB left lower extremity. Planning Specialist stump element setter in place. Appreciate PT and OT recommendations. [...] oriented. LE: Dressing clean, dry, and intact. Planning Specialist stump element setter in place. Labs: Recent Labs 11/05/24 0712 [...] Evaluation Current Diagnosis and Pertinent Medical History: Blsa Genao is a 63 y.o. male seen [...] level of independence with functional mobility. Baseline [facility] Basic Mobility Score: 24 Current [facility] Basic Mobility Score: 16 Objective [...] History Past Medical History: Diagnosis Date A-fib ([facility]) Acute osteomyelitis ([facility]) Atrial flutter ([facility]) Cardiac pacemaker 2015 Carotid atherosclerosis Charcot's joint of right foot 2015 Chronic sciatica Complete AV block ([facility]) Diabetes mellitus ([facility]) TYPE II Diabetic foot ulcer ([facility]) ED (erectile dysfunction) Edema ESBL (extended spectrum beta-lactamase) producing bacteria infection GERD (gastroesophageal reflux disease) GI bleed Hyperlipidemia Hypertension Leukocytosis Metabolic bone disease Multiple drug resistant organism (MDRO) culture positive Non healing left heel wound Obesity Osteoarthrosis Osteomyelitis of both feet ([facility]) PAD (peripheral artery disease) ([facility]) Primary osteoarthritis of knee Proteinuria Renal osteodystrophy Restless legs syndrome (RLS) no meds, lyrica helps Septic joint of left knee joint ([facility]) Sleep apnea BiPap Smoker Stage 3a chronic kidney disease (CKD) ([facility]) Past Surgical History: Procedure Laterality Date [...] WOUND VAC; Surgeon: [place] Camejo MD; Location: [facility]; Service: Orthopaedics; Laterality: Left; FOOT SURGERY Right x5 INCISION AND DRAINAGE FOOT Left OH PROCEDURE MAZE AFIB OSTECTOMY CALCANEOUS Left 09/10/2024 Procedure: ANKLE PARTIAL CALCANECTOMY; Surgeon: [place] Camejo MD; Location: [facility] OR; Service: Orthopaedics; Laterality: Left; wOUND [...] Progressive Mobility Level Achieved Transferring to Chair [facility] Basic Mobility Turning from your [...] Climbing 3-5 steps with a railing? 1 [facility] Basic Mobility Score 16 Therapy [...] PT goal 1 Transfer Goal 1 (PT) Posey Level/Cues Needed (Transfer Goal 1, PT) supervision required Time Frame (Transfer Goal 1, PT) 1 week Activity/Assistive Device (Transfer Goal 1, PT) [id number]-[id number]-wtlpj/aeiey-ac-jpr;ddj-ll-mcoqu/ajghb-tp-lqq;wheelchair transfer;walker, rolling Gait Training Goal 1 (PT) Time Frame (Gait Training Goal 1, PT) 1 week Posey Level (Gait Training Goal 1, PT) supervision required Activity/Assistive Device (Gait Training Goal 1, PT) gait (walking locomotion);assistive device use;maintain weight-bearing status;increase energy conservation;increase endurance/gait distance;walker, rolling Distance (Gait Training Goal 1, PT) 20 Wheelchair Locomotion Goal 1 (PT) Posey Level/Cues Needed (Wheelchair Locomotion Goal 1, PT) supervision required Time Frame (Wheelchair Locomotion Goal 1, PT) 1 week Activity (Wheelchair Locomotion Goal 1, PT) wheelchair mobility skills, all Distance Goal 1 (Wheelchair Locomotion, PT) 200 Sign: Jessica Daily PT * Chris Taylor MD - 11/06/2024 10:58 AM EST Images from the original note were not included. Coverage for Dr. Mtz [facility] Progress Note Name: Blas Genao [...] amputation -10/27: Left foot wound culture at [place]: MRSA, Enterococcus faecalis, VRE, Corynebacterium species and [...] tablet 975 mg 975 mg Oral Q6H [facility] POOJA De Souza 975 mg at 11/05/24 0650 acetaminophen (TYLENOL) tablet 975 mg 975 mg Oral Q8H [facility] POOJA De Souza 975 mg [...] mg 20 mg Intravenous Q15 Min PRN OPOJA De Souza Or diazepam (VALIUM) injection 10 [...] not compromised This report was generated using Genome Speaking dictation software. Although every attempt has been made by the provider to proofread this document, occasional misspellings and typographical errors Sign Chris Taylor MD, SUBHA, [facility] Infectious Diseases Available via [employer] 11/06/2024 10:58 AM * Adama Prasad APRN [...] bumex PO 2mg daily). Continue telemetry [facility] Subject[facility]/24 hour Events C/o significant pain. No [...] Continuous Glucose Sensor (FreeStyle Wallace 3 Sensor) [facility] INJECT 1 DEVICE INTO THE SKIN EVERY [...] mg, PO, BID Given, 200 mg at 02/08 0909 amLODIPine (NORVASC) tablet 10 mg 10 mg, [...] IVPB 10 mg/kg, IV, Q24H Stopped, 11/04 141 docusate sodium (COLACE) capsule 100 mg 100 [...] PO, BID Given, 2 tablet at 11/06 0809 sodium chloride (NS) 0.9 % infusion - ADS Override Pull No Dose/Rate Ordered sodium chloride (NS) 0.9 % infusion - ADS Override Pull No Dose/Rate Ordered thiamine mononitrate (VITAMIN B-1) tablet 200 mg 200 mg, PO, Daily Given, 200 mg at 11/06 0810 Continuous Medication Ordered Dose/Rate, Route, Frequency Last [...] Q3H PRN Given, 5 mg at 11/06 05 oxyCODONE (ROXICODONE) immediate release tablet 5 mg [...] Compared to previous outside study report from [facility] on 08/05/2024, Mitral and tricuspid regurgitation [...] software and direct typing. Please excuse inadvertent paint department supervisor and typing errors. Sign Adama Prasad APRN [...] Case IDs Date Procedure Surgeon Location Status [id number] 11/05/24 LEFT BELOW KNEE AMPUTATION [place] aCmejo MD [facility] OR Comp Plan Multimodal pain management DVT Prophylaxis: ASA 81mg PO BID Weight Bearing Status: NWB PT/OOB HV in place scant output overnight, will discuss with Dr. Camejo Appreciate Medicine, ID and Cardiology recs: for medical comanagement []TATIANNA pending []Blood Cultures Currently on Dapto, Ceftaroline Planning Specialist Stump element setter ordered Subjective No complaints. No CP,SOB,N/V. Pain [...] without problems. Last drink day before admission [facility] protocol ordered Diet: Diet Diabetic/ Calorie Controlled; Carb Counting 60g/meal 5441-0767 kcal DVT Px: SCDs - RIGHT (Knee High) Status: Full Code Consults placed: Procedures Inpatient consult to Internal Medicine Inpatient consult to Infectious Diseases (Specify provider ) Inpatient consult to Social Work Inpatient consult to Anesthesiology Inpatient consult to cardiology ([facility]) Inpatient consult to cardiac surgery Inpatient [...] Case IDs Date Procedure Surgeon Location Status [id number] 11/05/24 LEFT BELOW KNEE AMPUTATION [place] Camejo MD [facility] OR [facility] WB status: NWB LLE Postop antibiotics: [...] from the original note were not included. [facility] CARDIOLOGY SERVICE CONSULT Date of Consult: 11/05/2024 Patient's Primary Care Physician: Lee Fabian MD Physician Requesting Consult: Orthopedic surgery Primary Communications Tower Climber: Communications Tower Climber at [facility] Reason for Consultation: Preop Admit Date: [...] doing TATIANNA first is not going to manager of change. Leg wounds are like the source that [...] both feet (HCC) PAD (peripheral artery disease) ([facility]) Primary osteoarthritis of knee Proteinuria Renal osteodystrophy Restless legs syndrome (RLS) no meds, lyrica helps Septic joint of left knee joint ([facility]) Sleep apnea BiPap Smoker Stage 3a chronic kidney disease (CKD) ([facility]) Reviewed Past Surgical History: Procedure Laterality [...] Continuous Glucose Sensor (FreeStyle Wallace 3 Sensor) [facility] INJECT 1 DEVICE INTO THE SKIN EVERY [...] 9 bpm Confirmed by MD Danya, Deep ([id number]) on 11/03/2024 4:30:25 PM Echocardiogram (TTE) Comprehensive [...] Compared to previous outside study report from [facility] on 08/05/2024, Mitral and tricuspid regurgitation were not previously reported. Recommend transesophageal echocardiogram if clinically indicated. All additional appropriate imaging studies within the past 24 hours reviewed - images reviewed and independently interpreted. Sign: Nitish Tracy MD [facility] [place] 11/05/2024 2:43 PM * iHlda Alvarado RN - 11/05/2024 1:36 PM EST Images from the original note were not included. * Hilda Alvarado RN - 11/05/2024 1:00 PM EST Attending Anesthesiologist (JO-ANN) monitoring and aware of vitals during duration of block procedure. * Ena Mtz MD - 11/05/2024 9:42 AM EST Images from the original note were not included. [facility] INFECTIOUS DISEASE Consult progress Note Name: [...] faecium 10/27: Left foot wound culture at [place]: MRSA, Enterococcus faecalis, VRE, Corynebacterium speciesand gram-negative [...] 0851 Sign Ena Mtz MD, FACP, CWSP [facility] Infectious Diseases Available via [employer] SUBJECTIVE Tmax 102.3 ??F Fevers overnight [...] not compromised. This report was generated using Bi[employer] Naturally Speaking dictation software. Although every attempt [...] from the original note were not included. [facility] MEDICINE PROGRESS NOTE Assessment [...] consult to Anesthesiology Inpatient consult to cardiology ([facility]) Barriers for discharge: IV antibiotics, fevers, [...] Juany Ospina RN - 11/04/2024 9:20 AM ESTSummyriam: Nurse navigator note Initial Ortho Trauma Nurse [...] time. Demographic Screening: Medical insurance - Medicare Home Security Alarm Installer involvement - No. Worker's compensation - No [...] will identify along with patient a contact lens polisher to provide updates. Interventions Provided and reviewed [...] were not included. Coverage for Dr. Mtz [facility] Progress Note Name: Blas Genao [...] ostectomy. -10/27: Left foot wound culture at [place]: MRSA, Enterococcus faecalis, VRE, Corynebacterium species and [...] Start Dose/Rate Route Frequency Ordered Stop 11/03/24 DAPTOmycin (CUBICIN) 975 mg in sodium chloride [...] Lab Units 11/04/24 0726 11/03/245 11/03/24 1750 11/02/24211811/02/241999 SODIUM mmol/L -- -- -- -- 130* [...] tablet 975 mg 975 mg Oral Q6H [facility] POOJA Arias 975 mg at [...] g 1 Tube Oral Q15 Min PRN POJOA Arias Or glucose (GLUTOSE 15) 40 % [...] Nightly POOJA Arias 2 tablet at 11/03/24 7842 ALLERGIES: Allergies Allergen Reactions Lisinopril Other (See [...] not compromised This report was generated using [employer] dictation software. Although every attempt has been made by the provider to proofread this document, occasional misspellings and typographical errors Sign Chris Taylor MD, [facility], [facility] Infectious Diseases Available via [employer] 11/04/2024 9:13 AM * Juaquin Kern MD - 11/04/2024 6:56 AM EST Images from the original note were not included. [facility] MEDICINE PROGRESS NOTE Assessment [...] more intensive workup. ID already following. TT TTAIANNA Lab will try to prioritize but will [...] Diet Diabetic/ Calorie Controlled; Carb Counting 60g/meal 6020-7881 kcal Diet NPO; Meds DVT Px: SCDs - Bilateral (Knee High) Status: Full Code Consults placed: Procedures Inpatient consult to Internal Medicine Inpatient consult to Infectious Diseases (Specify provider ) Inpatient consult to Social Work Inpatient consult to Anesthesiology Inpatient consult to cardiology ([facility]) Barriers for discharge: IV antibiotics, fevers, [...] booked: case request and [facility] OR front elevator operator notified [x]Abx human resource consultant to OR (2g ancef) []Pre-Op Noes [...] alone Current Living Arrangements home (1-level, [facility]) Primary Care Provided by self [...] were you homeless or living in a chcf (including now)? N Food Insecurity Within the [...] In the past 12 months has the [facility], gas, oil, or water [employer] threatened to shut off services in your [...] 30 days Current Outpatient/Agency/Support Group homecare agency ([facility] - SN 3 weekly (wound care) & [facility] x 2 weekly) Concerns to be Addressed home safety;discharge planning Patient/Family Anticipates Transition to home with help/services;inpatient rehabilitation facility Patient/Family Anticipated Services at Transition home health care;penitentiary;other (see comments) (inpatient rehab) Transportation Anticipated family or friend will provide;health plan transportation Current Discharge Risk physical impairment;lives alone;dependent with mobility/activities of daily living;chronically ill Discharge Coordination/Tasks Status Post Discharge Needs/Treatments PT;OT;Wound Care;Residential Home Visit Patient/Patient Assembler Flexible Leads Provided With [facility] Of Homecare Company Preferences(s) Homecare Company Preference(s) [facility] * Juaquin Kern MD - 11/03/2024 1:17 PM EST Images from the original note were not included. [facility] MEDICINE PROGRESS NOTE Assessment [...] Diet Diabetic/ Calorie Controlled; Carb Counting 60g/meal 1877-2076 kcal DVT Px: SCDs Status: Full Code [...] []CMG conslt []ID consult []PICC line (ordered) []Planning Specialist clinic: pre-amputation education/fitting []Blood cultures: pending []Dressing [...] Patient arrived around 1800 this evening to [place] [address] in no acute distress. Placed on contact [...] (she has seen patient in the past) -Planning Specialist to be called for pre-amputation education/fitting in [...] Objective Past Medical History: Diagnosis Date A-fib ([facility]) Acute osteomyelitis ([facility]) Atrial flutter ([facility]) Cardiac pacemaker 2016 Carotid atherosclerosis Charcot's joint of right foot 2015 Chronic sciatica Complete AV block ([facility]) Diabetes mellitus ([facility]) TYPE II Diabetic foot ulcer ([facility]) ED (erectile dysfunction) Edema ESBL (extended spectrum beta-lactamase) producing bacteria infection GERD (gastroesophageal reflux disease) GI bleed Hyperlipidemia Hypertension Leukocytosis Metabolic bone disease Multiple drug resistant organism (MDRO) culture positive Non healing left heel wound Obesity Osteoarthrosis Osteomyelitis of both feet ([facility]) PAD (peripheral artery disease) ([facility]) Primary osteoarthritis of knee Proteinuria Renal osteodystrophy Restless legs syndrome (RLS) no meds, lyrica helps Septic joint of left knee joint ([facility]) Sleep apnea BiPap Smoker Stage 3a chronic kidney disease (CKD) ([facility]) Past Surgical History: Procedure Laterality Date AMPUTATION Right 2017 TMA AORTOGRAM- ABDOMINAL Left 09/15/2024 Procedure: LEFT LOWER EXTREMITY ANGIOGRAM; Surgeon: Delbert Mcintosh MD; Location: [facility] OR; Service: Peripheral Vascular; Laterality: Left; BARIATRIC SURGERY 2018 CARDIAC ELECTROPHYSIOLOGY STUDY AND ABLATION x5 CARDIAC PACEMAKER PLACEMENT 2016 CARDIAC SURGERY 2020 watchman device CARDIOVERSION 07/2024 CC PERIPHERAL ANGIOGRAPHY Left 07/2024 LE CHANGE DRESSING WOUND VAC Left 09/10/2024 Procedure: APPLICATION OF WOUND VAC; Surgeon: Dallas Camejo MD; Location: [facility] OR; Service: Orthopaedics; Laterality: Left; FOOT SURGERY Right x5 INCISION AND DRAINAGE FOOT Left [place] PROCEDURE MAZE AFIB OSTECTOMY CALCANEOUS Left 09/10/2024 Procedure: ANKLE PARTIAL CALCANECTOMY; Surgeon: Dallas Camejo MD; Location: [facility] OR; Service: Orthopaedics; Laterality: Left; wOUND [...] Continuous Glucose Sensor (FreeStyle Wallace 3 Sensor) [facility] INJECT 1 DEVICE INTO THE SKIN EVERY [...] (she has seen patient in the past) -Planning Specialist to be called for pre-amputation education/fitting in [...] Objective Past Medical History: Diagnosis Date A-fib ([facility]) Acute osteomyelitis ([facility]) Atrial flutter ([facility]) Cardiac pacemaker 2016 Carotid atherosclerosis Charcot's joint of right foot 2015 Chronic sciatica Complete AV block ([facility]) Diabetes mellitus ([facility]) TYPE II Diabetic foot ulcer ([facility]) ED (erectile dysfunction) Edema ESBL (extended spectrum beta-lactamase) producing bacteria infection GERD (gastroesophageal reflux disease) GI bleed Hyperlipidemia Hypertension Leukocytosis Metabolic bone disease Multiple drug resistant organism (MDRO) culture positive Non healing left heel wound Obesity Osteoarthrosis Osteomyelitis of both feet ([facility]) PAD (peripheral artery disease) ([facility]) Primary osteoarthritis of knee Proteinuria Renal osteodystrophy Restless legs syndrome (RLS) no meds, lyrica helps Septic joint of left knee joint ([facility]) Sleep apnea BiPap Smoker Stage 3a chronic kidney disease (CKD) ([facility]) Past Surgical History: Procedure Laterality Date AMPUTATION Right 2017 TMA AORTOGRAM- ABDOMINAL Left 09/15/2024 Procedure: LEFT LOWER EXTREMITY ANGIOGRAM; Surgeon: Delbert Mcintosh MD; Location: [facility] OR; Service: Peripheral Vascular; Laterality: Left; BARIATRIC SURGERY 2018 CARDIAC ELECTROPHYSIOLOGY STUDY AND ABLATION x5 CARDIAC PACEMAKER PLACEMENT 2016 CARDIAC SURGERY 2020 watchman device CARDIOVERSION 07/2024 CC PERIPHERAL ANGIOGRAPHY Left 07/2024 LE CHANGE DRESSING WOUND VAC Left 09/10/2024 Procedure: APPLICATION OF WOUND VAC; Surgeon: Dallas Camejo MD; Location: [facility] OR; Service: Orthopaedics; Laterality: Left; FOOT SURGERY Right x5 INCISION AND DRAINAGE FOOT Left [place] PROCEDURE MAZE AFIB OSTECTOMY CALCANEOUS Left 09/10/2024 Procedure: ANKLE PARTIAL CALCANECTOMY; Surgeon: Dallas Camejo MD; Location: [facility] OR; Service: Orthopaedics; Laterality: Left; wOUND [...] Continuous Glucose Sensor (FreeStyle Wallace 3 Sensor) [facility] INJECT 1 DEVICE INTO THE SKIN EVERY [...] tablet 975 mg 975 mg, PO, Q6H [facility] Ordered amiODARONE (PACERONE) tablet 200 [...] to verify the correct patient, procedure, equipment, administrative support technician and site/side marked as required. 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 HCRKerri Johns. Copy in [employer]. SW to f/u with pt this afternoon. Addendum: 1:30pm SW met with pt today for support. Blas was sitting in his chair, open to visit. Very social and pleasant. Very future oriented with the hopes of a return to work, if he chooses based on his recovery. 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 He is anticipating rehab [...] meets clinical indications for proline placement for correction antibiotics in the setting of osteomyelitis and [...] guidelines to the screening nurse at ext: [id number] Please direct any questions regarding procedure time/ date to the specific imaging modality: US: ext: [id number] CT: ext: 48743 Fluoroscopy: ext: [id number] IR: ext: [id number] Consent: The patient is able to give [...] injection 5,000 Units On hold since Fri11/16/2024 [id number] until manually unheld; held by Herberth Whitmore [...] at 1.8mg/dL - regarding the question of penitentiary PICC for Abx. This patient is high [...] History Past Medical History: Diagnosis Date A-fib ([facility]) Acute osteomyelitis ([facility]) Atrial flutter ([facility]) Cardiac pacemaker 2015 Carotid atherosclerosis Charcot's joint of right foot 2015 Chronic sciatica Complete AV block ([facility]) Diabetes mellitus ([facility]) TYPE II Diabetic foot ulcer ([facility]) ED (erectile dysfunction) Edema ESBL (extended spectrum beta-lactamase) producing bacteria infection GERD (gastroesophageal reflux disease) GI bleed Hyperlipidemia Hypertension Leukocytosis Metabolic bone disease Multiple drug resistant organism (MDRO) culture positive Non healing left heel wound Obesity Osteoarthrosis Osteomyelitis of both feet ([facility]) PAD (peripheral artery disease) Primary osteoarthritis of knee Proteinuria Renal osteodystrophy Restless legs syndrome (RLS) no meds, lyrica helps Septic joint of left knee joint ([facility]) Sleep apnea BiPap Smoker Stage 3a chronic kidney disease (CKD) ([facility]) Past Surgical History: Procedure Laterality Date AMPUTATION Right 2017 TMA AMPUTATION BELOW KNEE Left 11/05/2024 Procedure: LEFT BELOW KNEE AMPUTATION; Surgeon: Dallas Camejo MD; Location: [facility] OR; Service: Orthopaedics; Laterality: Left; AORTOGRAM- [...] WOUND VAC; Surgeon: Dallas Camejo MD; Location: [facility] OR; Service: Orthopaedics; Laterality: Left; EXTRACTION LEAD(S) LASER FROM DUAL PM SYSTEM Left 11/17/2024 Procedure: Extraction lead(s) laser from dual PM system; [id number]; Surgeon: Rui Pabon MD; Location: [facility] OR; Service: Electrophysiology; Laterality: Left; FOOT SURGERY Right x5 INCISION AND DRAINAGE FOOT Left INSERT/REPLACE LEADLESS PACEMAKER N/A 11/17/2024 Procedure: Micra Leadless Pacemaker Insert/Replacement; [id number]; Surgeon: Rui Pabon MD; Location: [facility] OR; Service: Electrophysiology; Laterality: N/A; [place] PROCEDURE MAZE AFIB OSTECTOMY CALCANEOUS Left 09/10/2024 Procedure: ANKLE PARTIAL CALCANECTOMY; Surgeon: Dallas Camejo MD; Location: [facility] OR; Service:Orthopaedics; Laterality: Left; wOUND PARTIALLY [...] Continuous Glucose Sensor (FreeStyle Wallace 3 Sensor) [facility] INJECT 1 DEVICE INTO THE SKIN EVERY [...] injection 5,000 Units On hold since Fri11/16/2024 [id number] until manually unheld; held by Herberth Whitmore [...] found for: TACROLIMUS No results found for: [id number] , TOTVOL , CRCLR , PERIOD No [...] Sign: Anmol Reynoso MD 11/19/2024 10:09 AM [facility] Nephrology Office [phone] * Gilda May RN - 11/12/2024 3:[address] 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 Had been using [...] nighttime disruptions as medically appropriate. Maintain regular [id number] including appropriate lighting in the room. Consider [...] PM&R as outpatient. - DVT ppx: per SRI Thank you for this consult. We will [...] limb. Per orders patient is to have element setter on AAT, noted that residual limb was wrapped with sirnivas wrap vs element setter. Reached out to orthopedic PA in regards to element setter for patient. Patient is motivated to participate [...] W/C, EMS transport and home PT. Current [facility] Basic Mobility Score: 14 OT [...] with strength, balance and activity tolerance. Current [facility] Daily Activity Score: 15 Outcomes score [facility] The Activity Measure for Post-Acute [...] A-fib (HCC) Acute osteomyelitis (HCC) Atrial flutter ([facility]) Cardiac pacemaker 2016 Carotid atherosclerosis Charcot's joint of right foot 2015 Chronic sciatica Complete AV block (HCC) Diabetes mellitus (HCC) TYPE II Diabetic foot ulcer ([facility]) ED (erectile dysfunction) Edema ESBL (extended [...] helps Septic joint of left knee joint ([facility]) Sleep apnea BiPap Smoker Stage 3a chronic kidney disease (CKD) ([facility]) Past Surgical History: Procedure Laterality Date AMPUTATION Right 2017 TMA AMPUTATION BELOW KNEE Left 11/05/2024 Procedure: LEFT BELOW KNEE AMPUTATION; Surgeon: Dallas Camejo MD; Location: [facility] OR; Service: Orthopaedics; Laterality: Left; AORTOGRAM- [...] WOUND VAC; Surgeon: Dallas Camejo MD; Location: [facility] OR; Service: Orthopaedics; Laterality: Left; FOOT SURGERY Right x5 INCISION AND DRAINAGE FOOT Left OH PROCEDURE MAZE AFIB OSTECTOMY CALCANEOUS Left 09/10/2024 Procedure: ANKLE PARTIAL CALCANECTOMY; Surgeon: Dallas Camejo MD; Location: [facility] OR; Service: Orthopaedics; Laterality: Left; wOUND [...] (two) times a day. Continuous Glucose Sensor (Raise MarketplaceStyle Wallace 3 Sensor) [facility] INJECT 1 DEVICE INTO THE SKIN EVERY [...] Kern, MDHold Reason: Pre-procedure On hold since Fri11/04/2024 [...] amputation. Left BKA with ampushield and stump element setter Skin: No skin breakdown to exposed skin [...] Hazel MD Physical Medicine & Rehabilitation, PGY-2 [facility] Available on [employer] secure chat Associated attestation - Lucho Red [...] ??? 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 Jeor Equation): 1920.63 [place]. Jeor (Considerations): 9572-5134 kcal (MSJ +1.2-1.3) based on 104 kg (229 lb 4.5 oz) (reported dry weight) Protein Needs: 117 - 141 gm, (1.5 - 1.8g/kg) based on 78.1 kg (172 lb 2.9 oz) (Adjusted IBW) Fluids: 2500ml based on Estimated/Assessed Carbohydrates Needs: 75 g CHO/meal Current Diet: Diet Diabetic/ Calorie Controlled; Carb Counting 60g/meal 9143-5382 kcal; 2 gm NA (Low Sodium); 2 [...] Compared to previous outside study report from [facility] on 08/05/2024, Mitral and tricuspid regurgitation [...] Smoker Stage 3a chronic kidney disease (CKD) ([facility]) Past Surgical History: Procedure Laterality Date AMPUTATION Right 2018 TMA AMPUTATION BELOW KNEE Left 11/05/2024 Procedure: LEFT BELOW KNEE AMPUTATION; Surgeon: Dallas Camejo MD; Location: [facility]; Service: Orthopaedics; Laterality: Left; AORTOGRAM- ABDOMINAL Left 09/15/2024 Procedure: LEFT LOWER EXTREMITY ANGIOGRAM; Surgeon: Delbert Mcintosh MD; Location: [facility]; Service: Peripheral Vascular; Laterality: Left; BARIATRIC SURGERY 2018 CARDIAC ELECTROPHYSIOLOGY STUDY AND ABLATION x5 CARDIAC PACEMAKER PLACEMENT 2016 CARDIAC SURGERY 2020 watchman device CARDIOVERSION 07/2024 CC PERIPHERAL ANGIOGRAPHY Left 07/2024 LE CHANGE DRESSING WOUND VAC Left 09/10/2024 Procedure: APPLICATION OF WOUND VAC; Surgeon: Dallas Camejo MD; Location: [facility]; Service: Orthopaedics; Laterality: Left; FOOT SURGERY Right x5 INCISION AND DRAINAGE FOOT Left [place] PROCEDURE MAZE AFIB OSTECTOMY CALCANEOUS Left 09/10/2024 Procedure: ANKLE PARTIAL CALCANECTOMY; Surgeon: Dallas Camejo MD; Location: [facility]; Service: Orthopaedics; Laterality: Left; wOUND PARTIALLY CLOSED [...] Continuous Glucose Sensor (FreeStyle Wallace 3 Sensor) [facility] INJECT 1 DEVICE INTO THE SKIN EVERY [...] mouth 2(two) times a day. [facility]05[facility] acetaminophen, 975 mg, Oral, Q6H [...] assessment, and plan as detailed in the dwarf tree grower's note with the following exceptions, clarifications, or [...] have complete heart block and is dependent. [place] implant Micra at the time of his [...] from the original note were not included. [facility] CARDIOLOGY SERVICE CONSULT Date of Consult: 11/04/2024 Patient's Primary Care Physician: Lee Fabian MD Physician Requesting Consult: Orthopedic surgery Primary Communications Tower Climber: Communications Tower Climber at [facility] Reason for Consultation: Preop Admit Date: [...] both feet (HCC) PAD (peripheral artery disease) ([facility]) Primary osteoarthritis of knee Proteinuria Renal osteodystrophy Restless legs syndrome (RLS) no meds, lyrica helps Septic joint of left knee joint (HCC) Sleep apnea BiPap Smoker Stage 3a chronic kidney disease (CKD) ([facility]) Reviewed Past Surgical History: Procedure Laterality [...] WOUND VAC; Surgeon: Dallas Camejo MD; Location: [facility] OR; Service: Orthopaedics; Laterality: Left; FOOT SURGERY Right x5 INCISION AND DRAINAGE FOOT Left [place] PROCEDURE MAZE AFIB OSTECTOMY CALCANEOUS Left 09/10/2024 Procedure: ANKLE PARTIAL CALCANECTOMY; Surgeon: Dallas Camejo MD; Location: [facility] OR; Service: Orthopaedics; Laterality: Left; wOUND [...] Continuous Glucose Sensor (FreeStyle Wallace 3 Sensor) [facility] INJECT 1 DEVICE INTO THE SKIN EVERY [...] IVPB 10 mg/kg, IV, Q24H Stopped, 11/04 141 docusate sodium (COLACE) capsule 100 mg 100 [...] Compared to previous outside study report from [facility] on 08/05/2024, Mitral and tricuspid regurgitation were not previously reported. Recommend transesophageal echocardiogram if clinically indicated. All additional appropriate imaging studies within the past 24 hours reviewed - images reviewed and independently interpreted. Sign: Nitish Tracy MD [facility] [place] 11/04/2024 3:31 PM * Hilda Almodovar [facility] - 11/04/2024 10:57 AM ESTAssociated Order(s): [...] has a past medical history of A-fib ([facility]), Acute osteomyelitis (HCC), Atrial flutter (HCC),Cardiac pacemaker [...] and supports. Pt has been working at [employer] in [facility] up until recently. He shared he is deemed disabledunder Social Security Disability though has been working under ticket to work program. Pt states does not anticipate being able to return to his line of work and states he will get correction disability. Discussed [place] Paid Leave. Pt states [...] area. Gave pt info and literature on [facility] [employer]. Pt is familiar with this service though has not used it. He was glad to have the information. Thereis no application process for this service. Anyone 60 or older that lives within [facility]'s service area can use it and make reservations at [phone]. Pt indicates being able to facilitate rides [...] Patient Psychosocial History Demographic Information Preferred Language: Maldivian Preferred Name: Blas Relationship status: Single Children: Blas Genao Adult Son Legal next of kin [phone] Advance Directive Advance Directives:Advance Directives Does Patient Have Advance Directives?: yes Living Will: yes, copy requested Healthcare Assembler Flexible Leads: yes, copy requested Legally Authorized Assembler Flexible Leads Blas Genao Adult Son Legal next of kin [phone] Living Environment Household Members: pt and 3 pet cats Living Arrangements: House Does the patient have any environmental/safety concerns? No Support System Who currently provides assistance/support for the patient? Son , friends Also has homecare [facility]vs [facility] Quality of support systems? Supportive Patient [...] from the original note were not included. [facility]ATION Date of Consult: [...] Negative 10/27: Left foot wound culture at [place]: MRSA, Enterococcus faecalis, VRE, Corynebacterium speciesand gram-negative [...] to participate in the care of Blas Mcknight Genao Discussed with orthopedic team Will follow Current antibiotic/day of therapy: Anti-infectives (From admission, onward) Start Dose/Rate Route Frequency Ordered Stop 11/02/241941 vancomycin (VANCOCIN) IV dosing PER PHARMACY PROTOCOL Pharmacy Protocol Orders Pharmacy Protocol Orders 11/02/241942 Robert Mtz MD, FACP, [facility] Infectious Diseases Available via [employer] SUBJECTIVE HISTORY OF PRESENT ILLNESS: This is a 63 y.o. year-old male complex medical history of atrial fibrillation, cardiac pacemaker, Watchman device, diabetes type II, history of ESBL infection, peripheral vascular disease, chronic kidney disease, diabetic foot infection/osteomyelitis, status post right TMA, recent hospitalization at [facility] for left diabetic foot infection. [...] HISTORY: Past Medical History: Diagnosis Date A-fib ([facility]) Acute osteomyelitis ([facility]) Atrial flutter ([facility]) Cardiac pacemaker 2016 Carotid atherosclerosis Charcot's joint of right foot 2015 Chronic sciatica Complete AV block ([facility]) Diabetes mellitus ([facility]) TYPE II Diabetic foot ulcer ([facility]) ED (erectile dysfunction) Edema ESBL (extended spectrum beta-lactamase) producing bacteria infection GERD (gastroesophageal reflux disease) GI bleed Hyperlipidemia Hypertension Leukocytosis Metabolic bone disease Multiple drug resistant organism (MDRO) culture positive Non healing left heel wound Obesity Osteoarthrosis Osteomyelitis of both feet ([facility]) PAD (peripheral artery disease) ([facility]) Primary osteoarthritis of knee Proteinuria Renal osteodystrophy Restless legs syndrome (RLS) no meds, lyrica helps Septic joint of left knee joint ([facility]) Sleep apnea BiPap Smoker Stage 3a chronic kidney disease (CKD) ([facility]) PAST SURGICAL HISTORY: Past Surgical History: Procedure Laterality Date AMPUTATION Right 2017 TMA AORTOGRAM- ABDOMINAL Left 09/15/2024 Procedure: LEFT LOWER EXTREMITY ANGIOGRAM; Surgeon: Delbert Mcintosh MD; Location: [facility] OR; Service: Peripheral Vascular; Laterality: Left; BARIATRIC SURGERY 2018 CARDIAC ELECTROPHYSIOLOGY STUDY AND ABLATION x5 CARDIAC PACEMAKER PLACEMENT 2016 CARDIAC SURGERY 2020 watchman device CARDIOVERSION 07/2024 CC PERIPHERAL ANGIOGRAPHY Left 07/2024 LE CHANGE DRESSING WOUND VAC Left 09/10/2024 Procedure: APPLICATION OF WOUND VAC; Surgeon: Dallas Camejo MD; Location: [facility]; Service: Orthopaedics; Laterality: Left; FOOT SURGERY Right x5 INCISION AND DRAINAGE FOOT Left [place] PROCEDURE MAZE AFIB OSTECTOMY CALCANEOUS Left 09/10/2024 Procedure: ANKLE PARTIAL CALCANECTOMY; Surgeon: Dallas Camejo MD; Location: [facility]; Service: Orthopaedics; Laterality: Left; wOUND PARTIALLY CLOSED [...] not compromised. This report was generated using [employer] Naturally Speaking dictation software. Although every attempt has been made by the provider to proofread this document, occasional misspellings and typographical errors may still be present. documented in this encounter Miscellaneous Notes * Plan of Care - Mitesh Caldwell RN - 11/25/2024 7:51 PM EST Patient being discharged home with home services. Patient has a proline and will require correction antibiotics. 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 Call ling within reach, safety precautions [...] is for discharge to inpatient rehab for long term care phlebotomist antibiotics when bed is available. Ellyn Patel [...] of Care Review Outcome: Progressing Vpaced on maypfhz-Braflpgc-woeubjz on IV Cubicin andIV Rocephin-Plan for PICC placement ?today for long term care phlebotomist anti-Bx's-see flowsheet for full assessment/vs Hansa Navarro [...] from the original note were not included. [address] [address] OPERATIVE REPORT Patient Name: Blas Genao Date of : 1960 Date of Procedure: 11/17/2024 Surgeons and Role: * Rui Pabon MD - Primary * Corbin Lamb APRN - Physician Host/Hostess Ground Pre-op Diagnosis: Pacemaker infection, subsequent encounter [T82.7XXD] Post-Op Diagnosis Codes: * Pacemaker infection, subsequent encounter [T82.7XXD] Details of Procedure Procedure(s): Extraction lead(s) laser from dual PM system; 23725 Micra Leadless Pacemaker Insert/Replacement; 80354 Additional Procedures Surgeon: Rui Pabon MD Host/Hostess Ground: : : Corbin Lamb APRN Anesthesia: Monitor [...] femoral venous access was obtained. A 12 Filipino sheath was placed in the right femoral vein. Through this an Amplatz stiff wire was advanced under fluoroscopic visualization to the right IJ. Using ultrasound-guided Seldinger technique left femoral venous access was obtained. 8 Filipino sheath was placed in left femoral vein. [...] were pulled back. Active-fixation mechanisms on both [id number] active-fixation leads were retracted. Leads were cut. EZ interlocking stylette's were placed down both right atrial right ventricular leads and deployed. External silk sutures were used for additional support. We then began with a 14 Filipino laser sheath. Under fluoroscopic visualization we started with the right ventricular lead. 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 We were able to progressto the innominate area. Here we reached the innominate region and had significant fibrosis. We then remove the 14 Filipino laser sheath and moved to the right [...] then used the right femoral venous 12 Filipino sheath and Amplatz wire which was in [...] ventricle positioning on the septum. ADAME and [place] position confirmed our placement.We did an initial deployment here. Sensing of paced R wave was 12 mV. Device impedance was 520 ohms. Threshold was initially 1.5 V that decreased to 1.2 V. However remained at 1.2 V at 0.24 ms. We therefore retrieved the device back into the deploying sheath. We then movedthe device slightly superior. ADAME and [place] position to confirm septal position. Initial testing hereshowed a threshold of 0.88 V at 0.24 ms. The lead impedance was 680 ohms. The sensed R wave paced was 17 mV. Tug test was performed under seen a year. We 3 spines move clearly. Retrieval suture was then cut and removed. There was no visible movement of the device. Post suture removal interrogationwas performed. Lead impedance was 630 ohms. Threshold was 0.75 V at 0.24 ms. Sensing was excellent for ventricular paced QRS. We felt this was a good stable position. The tethering suture was removedand the delivery system was then removed. Again interrogation of the device showed excellent parameters. Z stitch was placed at the micra sheath insertion site. Sheath was removed and the Z stitch tied off. Manual pressure was held for 15 minutes as well. The temporary pacing wire was removed under fluoroscopic visualization. Z stitch was placed around the 8 Filipino sheath as well and the sheath was removed. Manual pressure was also used to achieve hemostasis. Intraoperative TATIANNA revealed no pericardial effusion. No significant tricuspid regurgitation was noted. The new AV Micra was tracking his atrium nicely. He was then extubated and transferred to recovery in good condition. Complications: none Operative Findings: N/A Total Fluids: see anesthesia note Drains: None Estimated Blood Loss: 5 ml Blood Transfusion: none Implants: Implant Name Type Inv. Item Serial No. Clinical Trials Specialist Lot No. LRB No. Used Action [id number] PACEMAKER CARDIAC MICRA AV2 LDLS [facility] - [id number] Pacemaker [id number] PACEMAKER CARDIAC MICRA AV2 LDLS [facility] [id number] [employer] Left 1 Implanted Specimens: Dual-chamber pacemaker generator; chronic right atrial 5076 active- fixation Medtronic lead; chronic right ventricular 5076 active-fixation Medtronic lead; 2 sewing rings. Disposition: PACU Condition:Good Rui Pabon MD Date: 11/17/2024 Cc: Lee Fabian MD * Plan of Kal - Telma Aguilar, CRISTIAN - 11/17/2024 10:[address] 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 Jeor Equation): 1920.63 [place]. Jeor (Considerations): 1681-7949 kcal (MSJ +1.2-1.3) based on 104 kg [...] able to make needs known. NPO at [place] for pacemaker extraction. Placed on 1L NC [...] with Dr. Daniel Ramos MD Neurology PGY-2 [facility] * Hospital Course - Gianluca Calles [...] while on IV antibiotics. Fax results to [phone] 4. Patient will need to be scheduled [...] R plantar foot, typically followed by wound center/clinical science liaison outpatient near patient's home. Had been using [...] at discharge summary. Tracy Lopez RN, CDS [phone] * Plan of Care - Eunice Khan [...] no change Outcome Evaluation: Assumed care from [id number]. Pt alert and oriented x4. Seems to [...] Case IDs Date Procedure Surgeon Location Status [id number] 11/05/24 LEFT BELOW KNEE AMPUTATION Dallas Camejo [...] 4 mg q3h PRN for severe pain ([id number]). 1x dose of liquid dilaudid 1mg given [...] ischemic changes. Resp: Acute hypoxic respiratory failure 2/ volume [...] Compared to previous outside study report from [facility] on 08/05/2024, Mitral and tricuspid regurgitation [...] help guide diuresis if he returns to [place] before transfer. If he goes directly to [...] [facility] area. Referrals placed to [facility] rehabs Recommendation:inpt rehab Problem: Adult Inpatient [...] Compared to previous outside study report from [facility] on 08/05/2024, Mitral and tricuspid regurgitation [...] (AMARYL) tablet 2 mg On hold since [facility] 11/04/2024 at 1503 until manually unheld; held by Juaquin M Kern, MDHold Reason: Pre-procedure On hold since Fri11/04/2024 [...] of the patient's legal medical record Tracy Lpoez RN, CDS [phone] * Provider Documentation Query - Shay Martin [...] legal medical record. Tracy Lopez RN, CDS [phone] * Plan of Care - Krystina Felipe [...] in [place] d/t need for rescue NIV. [facility] 16 on 11/06-will needupdated PT/OT notes, pt active with [facility], may need inpt rehab. CM will [...] confirm endocarditis, plan for TATIANNA 11/08 delayed / O2 reqs - CT surgery consult pending [...] Compared to previous outside study report from [facility] on 08/05/2024, Mitral and tricuspid regurgitation [...] mcg, PO, Daily Given, 2,500 mcg at 02/09 0815 DAPTOmycin (CUBICIN) 975 mg in sodium [...] Q6H JUDSON Given, 975 mg at 11/07 0814 amiODARONE (PACERONE) tablet 200 mg 200 [...] Kern, MDHold Reason: Pre-procedure On hold since Fri11/04/2024 [...] to prior. Interpreted by: Roberto Tolbert MD Tube Heater XR Chest 1 view-Portable (STAT) Final Result Bilateral reticulonodular opacities concerning for interstitial edema. Superimposed atypical infection cannot be ruled out. Interpreted by: David Vogt DO Tube Heater I personally reviewed the images and the resident's preliminary report and AGREE with the report as it is now presented (RADPAL1). Echocardiogram (TTE) Comprehensive (Contrast PRN) Final Result Transesophageal Echocardiogram (Results Pending) CT Head w/contrast (Results Pending) Rafiq Chakraborty MD PGY-3 [facility] Internal Medicine [place] text preferred 11/07/24 11:26 AM * Plan [...] LBM 11/06. Dsg to L BKA cdi, Planning Specialist element setter in place. Pt reporting adequate paincontrol this [...] level of independence with self-care tasks. Baseline [facility] Daily Activity Score: 24 Current [facility] Daily Activity Score: 18 Objective Data Cognitive Status: Alert+oriented x4, follows multi step instructions and communicates appropriately Cognitive Function: Attention: intact Memory/recall: intact Safety Awareness: intact, however would benefit from further education and training Insight: good, however would benefit from further education and customer training specialist Function: intact Activities of Daily [...] wound Obesity Osteoarthrosis Osteomyelitis of both feet ([facility]) PAD (peripheral artery disease) ([facility]) Primary osteoarthritis of knee Proteinuria Renal osteodystrophy Restless legs syndrome (RLS) no meds, lyrica helps Septic joint of left knee joint ([facility]) Sleep apnea BiPap Smoker Stage 3a chronic kidney disease (CKD) ([facility]) Past Surgical History: Procedure Laterality Date [...] WOUND VAC; Surgeon: Dallas Camejo MD; Location: [facility] OR; Service: Orthopaedics; Laterality: Left; FOOT SURGERY Right x5 INCISION AND DRAINAGE FOOT Left OH PROCEDURE MAZE AFIB OSTECTOMY CALCANEOUS Left 09/10/2024 Procedure: ANKLE PARTIAL CALCANECTOMY; Surgeon: Dallas Camejo MD; Location: [facility] OR; Service: Orthopaedics; Laterality: Left; wOUND [...] Progressive Mobility Level Achieved Transferring to Chair [facility] Daily Activity Putting on and taking off Lower Body Clothing? 2 Bathing (including washing/rinsing/drying)? 3 Toileting (includes using toilet, bedpan, or urinal)? 2 Putting on and taking off upper body clothing? 4 Taking care of personal grooming such as brushing teeth? 3 Eating meals? 4 [facility] Daily Activity Score 18 Therapy [...] OT goal 1 Bathing Goal 1 (OT) Posey Level/Cues Needed (Bathing Goal 1, OT) modified independence Activity/Device (Bathing Goal 1, OT) bathing skills, all Time Frame (Bathing Goal 1, OT) 2 weeks Dressing Goal 1 (OT) Activity/Device (Dressing Goal 1, OT) lower body dressing Time Frame (Dressing Goal 1, OT) 1 week [place]osey/Cues Needed (Dressing Goal 1, OT) modified independence Toileting Goal 1 (OT) Activity/Device (Toileting Goal 1, OT) toileting skills, all Time Frame (Toileting Goal 1, OT) 1 week [place]y Level/Cues Needed (Toileting Goal 1, OT) modified [...] the original note were not included. [facility] [address] [facility] [id number] OPERATIVE REPORT Patient Name: Blas Genao Date [...] Type Source Tests Collected by Time Destination [id number] : Left leg below the knee amputation [...] Findings: see op note Anesthesia: general Staff: Host/Hostess Ground: Mary Emery RN Scrub Precepting: Binta Griffith CST Host/Hostess Ground Relief: Cynthia Lloyd, RN Estimated Blood Loss: * No values recorded between 11/05/2024 2:06 PM and 11/05/2024 3:22 PM * Specimens: ID Type Source Tests Collected by Time Destination [id number] : Left leg below the knee amputation Bone with Tissue Leg, left PATHOLOGY REPORT Dallas Camejo MD 11/05/2024 [address] Date: 11/05/2024 Time: 3:32 PM Procedure(s): LEFT BELOW KNEE AMPUTATION Orthopedics Brief Op Note Blas Mcknight Genao 11/02/2024 - 11/05/2024 Pre-op Diagnosis: Acute osteomyelitis of left calcaneus (HCC) [M86.172] Post-Op Diagnosis Codes: * Acute osteomyelitis of left calcaneus (HCC) [M86.172] Procedure(s) (LRB): LEFT BELOW KNEE AMPUTATION (Left) Surgeon(s): SHUBHAM Triana MD Anesthesia: general Staff: Host/Hostess Ground: Mary Emery RN Scrub Precepting: Binta Griffith CST Host/Hostess Ground Relief: Cynthia Desai RN Estimated Blood Loss: 25 ml Specimens: ID Type Source Tests Collected by Time Destination [id number] : Left leg below the knee amputation [...] Plan for OR today. Will have TATIANNA. District Extension Service Agent to follow Naveen Kebede 11/05/2024 9:29 AM [...] doing TATIANNA first is not going to manager of change. Leg wounds are like the source that has now seeded the valves and likely have involved thePPM. Will eventually need PP, evaluation and extraction afterwards. - Proceed with BKA - ABx per ID - Will need TATIANNA afterwards - Consider CT head to rule out septic emboli to brain petty with acute mental status change. MD Emiliana [facility] T: [phone] F: [phone] Main Office: [address] [place] [address] * Provider Documentation Query - Juaquin Kern MD - 11/05/2024 8:31 AM EST Provider Documentation Clarification: Please document on query form within 24 hours. The medical record reflects: TABITHA Documented clinical findings: 11/04 TABITHA. Today's creatinine pending. History of CKD [...] at discharge summary. Tracy Lopez RN, CDS [phone] * Plan of Care - Belkys Diaz [...] Care Review Outcome: Progressing Flowsheets (Taken 11/04/2024 [id number]) Plan of Care Reviewed With: patient Progress: [...] regiment, IV ABX as ordered, OOB assx1 andmisker, BM Today, cardiology to see pt , [...] * Plan of Care - Jemma Bull THIEN - 11/03/2024 3:31 PM EST Initial Case Management Care Plan Note Assessment completed with patient and/or patient's media sales representative, medical record review and discussion with clinical team. CC met with the patient using social distancing. Provided a Case Coordination packet with contact information, CC pamphlet and Your Next Step: Care Outside the Hospital brochure to the patient and/or patient media sales representative. Summary: 63 yo M admitted [...] home health services. Patient is active with [facility] for SN & [facility] svs. Patient went to a local wound [...] choice as outlined in the flowsheet -[facility] for resumption of SN & [facility], requested addition of PT & OT to POC Barriers to discharge: OR 11/05 Planning Specialist - P2P requested ID plan PT/OT evals [...] at Transition: (inpatient rehab) home health care [facility] other (see comments) Patient/Family Anticipates Transition to: home with help/services inpatient rehabilitation facility Current Outpatient/Agency/Support Group: ([facility] - SN 3 weekly (wound care) & [facility] x 2 weekly) homecare agency Jemma Bull [...] PM EDT Office Visit [facility] [address] [address] Dallas Camejo MD [address] [place], [place] [id number] 12/16/2024 8:30 AM EDT Office Visit [facility] Infectious Disease [address] [place] [phone] Ena Mtz MD [address] [place] [address] 12/22/2024 10:00 AM EDT Appointment [facility] Heart & Vascular [place] [facility] - Echocardiography Laboratory [address] [place] [phone] Ena Mtz MD [address] [place] [address] Pending Results Name Type Priority Associated Diagnoses [...] AM EST PM SINGLE LEAD EVAL WITH PROGRAM,[id number] Routine 11/18/2024 7:45 AM EST COMPLETE BLOOD [...] EST PM DUAL LEAD EVAL WITH PROGRAMMING, [id number] Routine 11/12/2024 1:15 PM EST POCT GLUCOSE, [...] EST PM DUAL LEAD EVAL WITH PROGRAMMING, [id number] Routine 11/11/2024 4:33 PM EST ECHOCARDIOGRAM TRANSESOPHAGEAL [...] CARE TEST [place] Performing Organization Address [facility] Co ma Phone Number [facility] See Below * (ABNORMAL) POCT Glucose, Fingerstick (11/25/2024 8:40 AM EST) POC Glucose 150(H) 65 - 99 mg/dL 11/25/2024 8:41 AM EST Blood specimen / Unknown 11/25/2024 8:40 AM EST 11/25/2024 8:41 AM EST Dallas Camejo MD POINT OF CARE TEST [place] Performing Organization Address [facility] Co de Phone Number HOSPITAL LAB See Below * (ABNORMAL) POCT Glucose, Fingerstick (11/24/2024 4:56 PM EST) POC Glucose 105(H) 65 - 99 mg/dL 11/24/2024 5:00 PM EST Blood specimen / Unknown 11/24/2024 4:56 PM EST 11/24/2024 5:00 PM EST Dallas Camejo MD POINT OF CARE TEST [place] Performing Organization Address [facility]/ZIP Co de Phone Number HOSPITAL [...] CARE TEST [place] Performing Organization Address [facility] Co [facility] Number [facility] See Below * (ABNORMAL) POCT Glucose, Fingerstick (11/24/2024 7:52 AM EST) POC Glucose 103(H) 65 - 99 mg/dL 11/24/2024 8:11 AM EST Blood specimen / Unknown 11/24/2024 7:52 AM EST 11/24/2024 8:11 AM EST Dallas Camejo MD POINT OF CARE TEST [place] Performing Organization Address [facility] LAB See Below * (ABNORMAL) Complete Blood Count WITHOUT Differential - in AM (11/24/2024 6:56 AM EST) Pathologist [facility] White Blood Cell Count 10.0 4.0 - 11.0 Thou/uL 11/24/2024 9:12 AM [facility] Platelet Count 366 150 - 450 Thou/uL 11/24/2024 9:12 AM [facility] Hemoglobin 9.0(L) 13.0 - 17.7 g/dL 11/24/2024 9:12 AM [facility] Hematocrit 29.5(L) 39.0 - 54.0 % 11/24/2024 9:12 AM [facility] Red Blood Cell Count 3.25(L) 4.50 - 6.20 Mil/uL 11/24/2024 9:12 AM [facility] MCV 91 80 - 100 fL 11/24/2024 9:12 AM [facility] MCH 27.7 27.0 - 31.0 pg 11/24/2024 9:12 AM [facility] MCHC 30.5 30.0 - 36.0 g/dL 11/24/2024 9:12 AM [facility] RDW 18.0(H) 11.5 - 14.5 % 11/24/2024 9:12 AM [facility] MPV 10.8 7.5 - 12.5 fL 11/24/2024 9:12 AM [facility] Blood Blood specimen / Unknown 11/24/2024 6:56 AM EST 11/24/2024 8:52 AM EST Gianluca Calles MD [place] [address], [place] [address] * (ABNORMAL) Comprehensive Metabolic Panel (AM) (11/24/2024 6:56 AM EST) Glucose 99 65 - 99 mg/dL 11/24/2024 9:28 AM [facility] Comment:Fasting: <100 mg/dL, Non-Fasting: <200 mg/dL (ADA 2005) Blood Urea Nitrogen (BUN) 35(H) 8 - 21 mg/dL 11/24/2024 9:28 AM [facility] Creatinine 1.6(H) 0.5 - 1.3 mg/dL 11/24/2024 9:28 AM [facility] eGFR 48(L) >59 11/24/2024 9:28 AM [facility] Comment:CKD-EPI (2020) in mL /min/1.73 sq meters. Sodium 139 136 - 145 mmol/L 11/24/2024 9:28 AM [facility] Potassium 3.8 3.4 - 5.3 mmol/L 11/24/2024 9:28 AM [facility] Chloride 102 98 - 107 mmol/L 11/24/2024 9:28 AM [facility] CO2 24 22 - 33 mmol/L 11/24/2024 9:28 AM [facility] Calcium 8.9 8.7 - 10.5 mg/dL 11/24/2024 9:28 AM [facility] Alkaline Phosphatase 97 45 - 128 U/L 11/24/2024 9:28 AM [facility] Aspartate Aminotrans (AST) 14 10 - 55 U/L 11/24/2024 9:28 AM [facility] Alanine Aminotrans (ALT) 20 10 - 55 U/L 11/24/2024 9:28 AM [facility] Bilirubin, Total 0.2 0.2 - 1.0 mg/dL 11/24/2024 9:28 AM [facility] Protein, Total 6.7 6.3 - 8.3 g/dL 11/24/2024 9:28 AM [facility] Albumin 3.1(L) 3.4 - 4.8 g/dL 11/24/2024 9:28 AM [facility] BUN/Creatinine Ratio 22 10.0 - 25.0 Ratio 11/24/2024 9:28 AM [facility] Globulin 3.6 1.5 - 3.9 g/dL 11/24/2024 9:28 AM [facility] Albumin/Globulin Ratio 0.9(L) 1.0 - 3.0 Ratio 11/24/2024 9:28 AM [facility] Anion Gap 13 7 - 17 11/24/2024 9:28 AM [facility] Blood Blood specimen / Unknown 11/24/2024 6:56 AM EST 11/24/2024 8:52 AM EST Gianluca Calles MD LAB BLOOD ORDERABLES [address] [address], [address] [address] * (ABNORMAL) POCT Glucose, Fingerstick (11/23/2024 8:48 PM EST) POC Glucose 116(H) 65 - 99 mg/dL 11/23/2024 8:49 PM EST Blood specimen / Unknown 11/23/2024 8:48 PM EST 11/23/2024 8:49 PM EST Dallas Camejo MD POINT OF CARE TEST [place] Performing Organization Address [facility] LAB See Below * POCT Glucose, Fingerstick (11/23/2024 4:35 PM EST) POC Glucose 84 65 - 99 mg/dL 11/23/2024 4:36 PM EST Blood specimen / Unknown 11/23/2024 4:35 PM EST 11/23/2024 4:36 PM EST Dallas Camejo MD POINT OF CARE TEST O [place] Performing Organization Address [facility] See Below * (ABNORMAL) POCT Glucose, Fingerstick (11/23/2024 11:35 AM EST) POC Glucose 151(H) 65 - 99 mg/dL 11/23/2024 11:36 AM EST Blood specimen / Unknown 11/23/2024 11:35 AM EST 11/23/2024 11:36 AM EST Dallas Camejo MD POINT OF CARE TEST O JOSEPH Performing Organization Address [facility] Number [facility] See Below * Influenza A/B, RSV, SARS-CoV-2 BALJINDER Multiplex (FLUVID) (11/23/2024 10:45 AM EST) Pathologist [facility] Influenza A Virus Not Detected Not Detected 11/23/2024 12:00 PM [facility] Influenza B Virus Not Detected Not Detected 11/23/2024 12:00 PM [facility] SARS-CoV-2 Not Detected Not Detected 11/23/2024 12:00 PM [facility] Respiratory Syncytial Virus Not Detected Not Detected 11/23/2024 12:00 PM [facility] Comment Negative results do not preclude SARS-CoV-2, Influenza or RSV infection and should not be used as the sole basis for treatment or other patient management decisions. 11/23/2024 12:00 PM [facility] Swab, Nasopharyngeal Nasopharyngeal swab / Unknown 11/23/2024 10:45 AM EST 11/23/2024 11:08 AM EST Gianluca Calles MD MICROBIOLOGY - GENER AL ORDERABLES Performing Organization Address [facility] Co de Phone Number [place] [address], [address] [address] * (ABNORMAL) POCT Glucose, Fingerstick (11/23/2024 7:34 AM EST) POC Glucose 126(H) 65 - 99 mg/dL 11/23/2024 7:35 AM EST Blood specimen / Unknown 11/23/2024 7:34 AM EST 11/23/2024 7:35 AM EST Dallas Camejo MD POINT OF CARE TEST O RDERABLES Performing Organization Address [facility] Co de Phone Number HOSPITAL LAB See Below * (ABNORMAL) C-REACTIVE PROTEIN (11/23/2024 6:43 AM EST) C-Reactive Protein 4.88(H) 0 - 0.49 mg/dL 11/23/2024 11:53 AM EST [facility] 11/23/2024 6:43 AM EST 11/23/2024 6:49 AM EST Gianluca Calles MD LAB BLOOD ORDERABLES Performing Organization Address [facility] Co de Phone Number [address] [address], [address] [address] * (ABNORMAL) Erythrocyte Sedimentation Rate (ESR) (11/23/2024 6:43 AM EST) Erythrocyte Sediment Rate (ESR) 62(H) <20 MM/HR 11/23/2024 12:07 PM EST [facility] Blood specimen / Unknown 11/23/2024 6:43 AM EST 11/23/2024 6:49 AM EST Gianluca Calles MD [place] [address], [place] [address] * (ABNORMAL) HEPATIC FUNCTION PANEL (11/23/2024 6:43 AM EST) Alkaline Phosphatase 103 45 - 128 U/L 11/23/2024 11:53 AM [facility] Aspartate Aminotrans (AST) 22 10 - 55 U/L 11/23/2024 11:53 AM [facility] Alanine Aminotrans (ALT) 28 10 - 55 U/L 11/23/2024 11:53 AM [facility] Bilirubin, Total 0.2 0.2 - 1.0 mg/dL 11/23/2024 11:53 AM [facility] Protein, Total 6.6 6.3 - 8.3 g/dL 11/23/2024 11:53 AM [facility] Albumin 3.1(L) 3.4 - 4.8 g/dL 11/23/2024 11:53 AM [facility] Bilirubin, Direct 0.1 0 - 0.2 mg/dL 11/23/2024 11:53 AM [facility] Globulin 3.5 1.5 - 3.9 g/dL 11/23/2024 11:53 AM [facility] Albumin/Globulin Ratio 0.9(L) 1.0 - 3.0 Ratio 11/23/2024 11:53 AM [facility] 11/23/2024 6:43 AM EST 11/23/2024 6:49 AM EST Gianluca Calles MD LAB BLOOD ORDERABLES [address] [address], [address] [address] * CREATINE KINASE (CK) (11/23/2024 6:43 AM EST) Creatine Kinase (CK) 36 24 - 204 U/L 11/23/2024 11:53 AM [facility] 11/23/2024 6:43 AM EST 11/23/2024 6:49 AM EST Gianluca Calles MD LAB BLOOD ORDERABLES [address] [address], [address] [address] * (ABNORMAL) Complete Blood Count WITHOUT Differential - in AM (11/23/2024 6:43 AM EST) White Blood Cell Count 10.8 4.0 - 11.0 Thou/uL 11/23/2024 7:01 AM [facility] Platelet Count 353 150 - 450 Thou/uL 11/23/2024 7:01 AM [facility] Hemoglobin 8.7(L) 13.0 - 17.7 g/dL 11/23/2024 7:01 AM [facility] Hematocrit 28.3(L) 39.0 - 54.0 % 11/23/2024 7:01 AM [facility] Red Blood Cell Count 3.14(L) 4.50 - 6.20 Mil/uL 11/23/2024 7:01 AM [facility] MCV 90 80 - 100 fL 11/23/2024 7:01 AM [facility] MCH 27.7 27.0 - 31.0 pg 11/23/2024 7:01 AM [facility] MCHC 30.7 30.0 - 36.0 g/dL 11/23/2024 7:01 AM [facility] RDW 18.0(H) 11.5 - 14.5 % 11/23/2024 7:01 AM [facility] MPV 10.4 7.5 - 12.5 fL 11/23/2024 7:01 AM [facility] Blood Blood specimen / Unknown 11/23/2024 6:43 AM EST 11/23/2024 6:49 AM EST Gianluca Calles MD LAB BLOOD ORDERABLES [address] [address], [address] [address] * Magnesium (AM) (11/23/2024 6:43 AM EST) Magnesium 2.2 1.6 - 2.7 mg/dL 11/23/2024 7:22 AM [facility] Blood Blood specimen / Unknown 11/23/2024 6:43 AM EST 11/23/2024 6:49 AM EST Gianluca Calles MD [place] [address], [place] [address] * (ABNORMAL) Basic Metabolic Panel (AM) (11/23/2024 6:43 AM EST) Glucose 114(H) 65 - 99 mg/dL 11/23/2024 7:22 AM [facility] Comment:Fasting: <100 mg/dL, Non-Fasting: <200 mg/dL (ADA 2004) Blood Urea Nitrogen (BUN) 31(H) 8 - 21 mg/dL 11/23/2024 7:22 AM [facility] Creatinine 1.5(H) 0.5 - 1.3 mg/dL 11/23/2024 7:22 AM [facility] eGFR 52(L) >59 11/23/2024 7:22 AM [facility] Comment:CKD-EPI (2020) in mL /min/1.73 sq meters. Sodium 140 136 - 145 mmol/L 11/23/2024 7:22 AM [facility] Potassium 4.0 3.4 - 5.3 mmol/L 11/23/2024 7:22 AM [facility] Chloride 104 98 - 107 mmol/L 11/23/2024 7:22 AM [facility] CO2 25 22 - 33 mmol/L 11/23/2024 7:22 AM [facility] Anion Gap 11 7 - 17 11/23/2024 7:22 AM [facility] Calcium 9.0 8.7 - 10.5 mg/dL 11/23/2024 7:22 AM EST [facility] BUN/Creatinine Ratio 21 10.0 - 25.0 Ratio 11/23/2024 7:22 AM EST [facility] Blood Blood specimen / Unknown 11/23/2024 6:43 AM EST 11/23/2024 6:49 AM EST Gianluca Calles MD LAB BLOOD ORDERABLES [address] [address], [address] [address] * (ABNORMAL) POCT Glucose, Fingerstick (11/22/2024 9:02 [...] Session [id number] PACEART Implantable Pulse Generator Clinical Trials Specialist [employer] PACEART Implantable Pulse Generator Model [id number] Micra AV2 PACEART Implantable Pulse Generator Serial Number [id number] PACEART Implantable Pulse Generator Type Pacemaker PACEART [...] last reset 99.86 % PACEART Otf Statistic UNDERGROUND CONDUIT INSTALLER Percent 100.00 % PACEART Otf Statistic VS Percent 0 % PACEART Anatomical Region Laterality Modality Other 11/22/2024 1:58 PM EST Narrative 11/28/2024 10:40 AM EST Micra AV leadless Pacemaker evaluation completed on B10E. Per patient request and verbal order from SHUBHAM Pitts: LRL increased from 50 bpm to 60 bpm. Presenting rhythm: AM/UNDERGROUND CONDUIT INSTALLER @ 62 bpm. Underlying rhythm: CHB. AM/UNDERGROUND CONDUIT INSTALLER pacing 81%, with total V-pacing 100%. Battery [...] MD POINT OF CARE TEST O RDERABLES [facility] LAB See Below * (ABNORMAL) POCT Glucose, Fingerstick (11/22/2024 7:35 AM EST) Pathologist [facility] POC Glucose 194(H) 65 - 99 mg/dL 11/22/2024 7:37 AM EST Blood specimen / Unknown 11/22/2024 7:35 AM EST 11/22/2024 7:37 AM EST Dallas Camejo MD POINT OF CARE TEST O RDERABLES [facility] LAB See Below * Magnesium (AM) (11/22/2024 7:31 AM EST) [facility] Magnesium 2.0 1.6 - 2.7 mg/dL 11/22/2024 8:17 AM [facility] Blood (Plasma/Serum) 11/22/2024 7:31 AM EST 11/22/2024 7:54 AM EST Gianluca Calles MD LAB BLOOD ORDERABLES Performing Organization Address [facility] [place] [address], [place] [address] * (ABNORMAL) Complete Blood Count WITHOUT Differential - in AM (11/22/2024 7:31 AM EST) [facility] White Blood Cell Count 12.1(H) 4.0 - 11.0 Thou/uL 11/22/2024 8:19 AM [facility] Platelet Count 333 150 - 450 Thou/uL 11/22/2024 8:19 AM [facility] Hemoglobin 8.1(L) 13.0 - 17.7 g/dL 11/22/2024 8:19 AM [facility] Hematocrit 26.2(L) 39.0 - 54.0 % 11/22/2024 8:19 AM [facility] Red Blood Cell Count 2.88(L) 4.50 - 6.20 Mil/uL 11/22/2024 8:19 AM [facility] MCV 91 80 - 100 fL 11/22/2024 8:19 AM [facility] MCH 28.1 27.0 - 31.0 pg 11/22/2024 8:19 AM [facility] MCHC 30.9 30.0 - 36.0 g/dL 11/22/2024 8:19 AM [facility] RDW 18.0(H) 11.5 - 14.5 % 11/22/2024 8:19 AM [facility] MPV 10.5 7.5 - 12.5 fL 11/22/2024 8:19 AM [facility] Blood Blood specimen / Unknown 11/22/2024 7:31 AM EST 11/22/2024 7:54 AM EST Gianluca Calles MD LAB BLOOD ORDERABLES Performing Organization Address City/State/[facility] [place] [address], [place] [address] * (ABNORMAL) Basic Metabolic Panel (AM) (11/22/2024 7:31 AM EST) Glucose 178(H) 65 - 99 mg/dL 11/22/2024 8:17 AM [facility] Comment:Fasting: <100 mg/dL, Non-Fasting: <200 mg/dL (ADA 2004) Blood Urea Nitrogen (BUN) 36(H) 8 - 21 mg/dL 11/22/2024 8:17 AM [facility] Creatinine 1.6(H) 0.5 - 1.3 mg/dL 11/22/2024 8:17 AM [facility] eGFR 48(L) >59 11/22/2024 8:17 AM [facility] Comment:CKD-EPI (2020) in mL /min/1.73 sq meters. Sodium 137 136 - 145 mmol/L 11/22/2024 8:17 AM [facility] Potassium 4.2 3.4 - 5.3 mmol/L 11/22/2024 8:17 AM [facility] Chloride 101 98 - 107 mmol/L 11/22/2024 8:17 AM [facility] CO2 27 22 - 33 mmol/L 11/22/2024 8:17 AM EST [facility] Anion Gap 9 7 - 17 11/22/2024 8:17 AM EST [facility] Calcium 8.8 8.7 - 10.5 mg/dL 11/22/2024 8:17 AM EST [facility] BUN/Creatinine Ratio 23 10.0 - 25.0 Ratio 11/22/2024 8:17 AM EST [facility] Blood (Plasma/Serum) 11/22/2024 7:31 AM EST 11/22/2024 7:54 AM EST Gianluca Calles MD [place] [address], [place] [address] * (ABNORMAL) POCT Glucose, Fingerstick (11/21/2024 9:28 [...] CARE TEST O RDERABLES Performing Organization Address [facility] Co de Phone Number [facility] LAB See Below * (ABNORMAL) POCT Glucose, Fingerstick (11/21/2024 7:45 AM EST) POC Glucose 175(H) 65 - 99 mg/dL 11/21/2024 7:54 AM EST Blood specimen / Unknown 11/21/2024 7:45 AM EST 11/21/2024 7:54 AM EST Dallas Camejo MD POINT OF CARE TEST O RDERABLES Performing Organization Address [facility] Phone Number [facility] LAB See Below * Magnesium (AM) (11/21/2024 6:58 AM EST) Pathologist [facility] Magnesium 2.1 1.6 - 2.7 mg/dL 11/21/2024 8:14 AM [facility] Blood (Plasma/Serum) 11/21/2024 6:58 AM EST 11/21/2024 7:36 AM EST Gianluca Calles MD LAB BLOOD ORDERABLES Performing Organization Address [facility] [place] [address], [address] [address] * (ABNORMAL) Complete Blood Count WITHOUT Differential - in AM (11/21/2024 6:58 AM EST) Pathologist [facility] White Blood Cell Count 14.0(H) 4.0 - 11.0 Thou/uL 11/21/2024 7:55 AM EST [facility] Platelet Count 329 150 - 450 Thou/uL 11/21/2024 7:55 AM [facility] Hemoglobin 8.2(L) 13.0 - 17.7 g/dL 11/21/2024 7:55 AM [facility] Hematocrit 26.7(L) 39.0 - 54.0 % 11/21/2024 7:55 AM [facility] Red Blood Cell Count 2.95(L) 4.50 - 6.20 Mil/uL 11/21/2024 7:55 AM [facility] MCV 91 80 - 100 fL 11/21/2024 7:55 AM [facility] MCH 27.8 27.0 - 31.0 pg 11/21/2024 7:55 AM [facility] MCHC 30.7 30.0 - 36.0 g/dL 11/21/2024 7:55 AM [facility] RDW 17.8(H) 11.5 - 14.5 % 11/21/2024 7:55 AM [facility] MPV 10.4 7.5 - 12.5 fL 11/21/2024 7:55 AM [facility] Blood Blood specimen / Unknown 11/21/2024 6:58 AM EST 11/21/2024 7:36 AM EST Gianluca Calles MD [place] [address], [place] [address] * (ABNORMAL) Basic Metabolic Panel (AM) (11/21/2024 6:58 AM EST) Glucose 153(H) 65 - 99 mg/dL 11/21/2024 8:14 AM [facility] Comment:Fasting: <100 mg/dL, Non-Fasting: <200 mg/dL (ADA 2004) Blood Urea Nitrogen (BUN) 38(H) 8 - 21 mg/dL 11/21/2024 8:14 AM [facility] Creatinine 1.8(H) 0.5 - 1.3 mg/dL 11/21/2024 8:14 AM [facility] eGFR 42(L) >59 11/21/2024 8:14 AM [facility] Comment:CKD-EPI (2020) in mL /min/1.73 sq meters. Sodium 136 136 - 145 mmol/L 11/21/2024 8:14 AM [facility] Potassium 3.7 3.4 - 5.3 mmol/L 11/21/2024 8:14 AM [facility] Chloride 99 98 - 107 mmol/L 11/21/2024 8:14 AM [facility] CO2 27 22 - 33 mmol/L 11/21/2024 8:14 AM [facility] Anion Gap 10 7 - 17 11/21/2024 8:14 AM [facility] Calcium 8.8 8.7 - 10.5 mg/dL 11/21/2024 8:14 AM [facility] BUN/Creatinine Ratio 21 10.0 - 25.0 Ratio 11/21/2024 8:14 AM [facility] Blood (Plasma/Serum) 11/21/2024 6:58 AM EST 11/21/2024 7:36 AM EST Gianluca Calles MD [place] [address], [place] [address] * (ABNORMAL) POCT Glucose, Fingerstick (11/20/2024 8:16 [...] CARE TEST O RDERABLES Performing Organization Address [facility] Phone Number [facility] LAB See Below * (ABNORMAL) POCT Glucose, Fingerstick (11/20/2024 12:07 PM EST) POC Glucose 167(H) 65 - 99 mg/dL 11/20/2024 12:12 PM EST Blood specimen / Unknown 11/20/2024 12:07 PM EST 11/20/2024 12:12 PM EST Dallas Camejo MD POINT OF CARE TEST O RDERABLES Performing Organization Address [facility] Phone Number [facility] LAB See Below * (ABNORMAL) POCT Glucose, Fingerstick (11/20/2024 7:58 AM EST) POC Glucose 166(H) 65 - 99 mg/dL 11/20/2024 8:02 AM EST Blood specimen / Unknown 11/20/2024 7:58 AM EST 11/20/2024 8:02 AM EST Dallas Camejo MD POINT OF CARE TEST O RDERABLES Performing Organization Address [facility] Phone Number [facility] LAB See Below * Magnesium (AM) (11/20/2024 6:59 AM EST) Magnesium 2.2 1.6 - 2.7 mg/dL 11/20/2024 8:04 AM EST [facility] Blood (Plasma/Serum) 11/20/2024 6:59 AM EST 11/20/2024 7:31 AM EST Gianluca Calles MD LAB BLOOD ORDERABLES Performing Organization Address [facility] Co de Phone Number [address] [address], [address] [address] * (ABNORMAL) Complete Blood Count WITHOUT Differential - in AM (11/20/2024 6:59 AM EST) [facility] White Blood Cell Count 11.9(H) 4.0 - 11.0 Thou/uL 11/20/2024 7:45 AM [facility] Platelet Count 339 150 - 450 Thou/uL 11/20/2024 7:45 AM [facility] Hemoglobin 8.3(L) 13.0 - 17.7 g/dL 11/20/2024 7:45 AM [facility] Hematocrit 27.2(L) 39.0 - 54.0 % 11/20/2024 7:45 AM [facility] Red Blood Cell Count 3.01(L) 4.50 - 6.20 Mil/uL 11/20/2024 7:45 AM [facility] MCV 90 80 - 100 fL 11/20/2024 7:45 AM [facility] MCH 27.6 27.0 - 31.0 pg 11/20/2024 7:45 AM [facility] MCHC 30.5 30.0 - 36.0 g/dL 11/20/2024 7:45 AM [facility] RDW 17.5(H) 11.5 - 14.5 % 11/20/2024 7:45 AM [facility] MPV 10.7 7.5 - 12.5 fL 11/20/2024 7:45 AM [facility] Blood Blood specimen / Unknown 11/20/2024 6:59 AM EST 11/20/2024 7:31 AM EST Gianluca Calles MD [place] [address], [place] [address] * (ABNORMAL) Basic Metabolic Panel (AM) (11/20/2024 6:59 AM EST) [facility] Glucose 155(H) 65 - 99 mg/dL 11/20/2024 8:04 AM [facility] Comment:Fasting: <100 mg/dL, Non-Fasting: <200 mg/dL (ADA 2005) Blood Urea Nitrogen (BUN) 47(H) 8 - 21 mg/dL 11/20/2024 8:04 AM [facility] Creatinine 1.9(H) 0.5 - 1.3 mg/dL 11/20/2024 8:04 AM [facility] eGFR 39(L) >59 11/20/2024 8:04 AM [facility] Comment:CKD-EPI (2020) in mL /min/1.73 sq meters. Sodium 137 136 - 145 mmol/L 11/20/2024 8:04 AM [facility] Potassium 3.8 3.4 - 5.3 mmol/L 11/20/2024 8:04 AM [facility] Chloride 98 98 - 107 mmol/L 11/20/2024 8:04 AM [facility] CO2 30 22 - 33 mmol/L 11/20/2024 8:04 AM [facility] Anion Gap 9 7 - 17 11/20/2024 8:04 AM [facility] Calcium 9.0 8.7 - 10.5 mg/dL 11/20/2024 8:04 AM [facility] BUN/Creatinine Ratio 25 10.0 - 25.0 Ratio 11/20/2024 8:04 AM [facility] Blood (Plasma/Serum) 11/20/2024 6:59 AM EST 11/20/2024 7:31 AM EST Gianluca Calles MD LAB BLOOD ORDERABLES Performing Organization Address City/[facility]/ZIP [place] [address], [place] [address] * (ABNORMAL) POCT Glucose, Fingerstick (11/19/2024 4:13 PM EST) POC Glucose 274(H) 65 - 99 mg/dL 11/19/2024 4:14 PM EST Blood specimen / Unknown 11/19/2024 4:13 PM EST 11/19/2024 4:14 PM EST Dallas Camejo MD POINT OF CARE TEST O RDERABLES HOSPITAL LAB See Below * (ABNORMAL) Urinalysis with Reflex to Microscopic (11/19/2024 4:00 PM EST) Color Yellow 11/19/2024 4:30 PM [facility] Clarity Clear 11/19/2024 4:30 PM [facility] Specific [place] 1.008 1.003 - 1.030 11/19/2024 4:30 PM [facility] pH 6.0 5.0 - 8.0 11/19/2024 4:30 PM [facility] Leukocyte Esterase Large(A) Negative 11/19/2024 4:30 PM [facility] Nitrite Negative Negative 11/19/2024 4:30 PM [facility] Protein Negative Negative 11/19/2024 4:30 PM [facility] Glucose 0 0 - 99 mg/dL 11/19/2024 4:30 PM [facility] Ketones Negative Negative 11/19/2024 4:30 PM [facility] Blood Negative Negative 11/19/2024 4:30 PM [facility] Bilirubin Negative Negative 11/19/2024 4:30 PM [facility] WBC >25(H) 0 - 4 per hpf 11/19/2024 4:30 PM [facility] RBC 2 0 - 4 per hpf 11/19/2024 4:30 PM [facility] X-Specimen 16 Voided urine specimen / Unknown 11/19/2024 4:00 PM EST 11/19/2024 4:18 PM EST Anmol Reynoso MD [place] [address], [place] [address] * OSMOLALITY, URINE (11/19/2024 4:00 PM EST) Osmolality, Urine 201 50 - 1,200 mOsm/Kg 11/19/2024 6:20 PM [facility] Urine Urine specimen / Unknown 11/19/2024 4:00 PM EST 11/19/2024 4:19 PM EST Anmol Reynoso MD URINE ORDERABLES Performing Organization Address City/[facility]/ZIP Co de Phone Number [address] [address], [address] [address] * Urea Nitrogen, Urine, Random (11/19/2024 4:00 PM EST) Urea Nitrogen, Random Urine 273 mg/dL 11/19/2024 5:43 PM EST [facility] Comment:Reference range not established for random specimen. Urine Urine specimen / Unknown 11/19/2024 4:00 PM EST 11/19/2024 4:19 PM EST Anmol Reynoso MD URINE ORDERABLES Performing Organization Address City/[facility] Co de Phone Number [address] [address], [address] [address] * SODIUM, URINE, RANDOM (11/19/2024 4:00 PM EST) Sodium, Urine Random 21 mmol/L 11/19/2024 5:43 PM EST [facility] Comment:Reference range not established for random specimen. Urine Urine specimen / Unknown 11/19/2024 4:00 PM EST 11/19/2024 4:19 PM EST Anmol Reynoso MD URINE ORDERABLES Performing Organization Address City/[facility] Co de Phone Number [address] [address], [address] [address] * CREATININE, URINE, RANDOM (11/19/2024 4:00 PM EST) Creatinine, Urine, Random 31 mg/dL 11/19/2024 5:43 PM EST [facility] Comment:Reference range not established for random specimen. Urine Urine specimen / Unknown 11/19/2024 4:00 PM EST 11/19/2024 4:19 PM EST Anmol Reynoso MD URINE ORDERABLES Performing Organization Address [facility] Co de Phone Number [address] [address], [place] [address] * Chloride, Urine, Random (11/19/2024 4:00 PM EST) Chloride, Urine, Random 23 mmol/L 11/19/2024 5:43 PM EST [facility] Comment:Reference range not established for random specimen. Urine Urine specimen / Unknown 11/19/2024 4:00 PM EST 11/19/2024 4:19 PM EST Anmol Reynoso MD URINE ORDERABLES Performing Organization Address [facility] [place] [address], [place] [address] * CVC INSERT (TUNNEL) W/O PORT GREATER [...] preprocedure time-out was performed per [facility] protocol. The right neck and [...] access, a 26 cm long dual lumen 5-Filipino cuffed tunneled catheter was placed under fluoroscopic [...] preprocedure time-out was performed per [facility] protocol. The right neck and [...] access, a 26 cm long dual lumen 5-Filipino cuffed tunneled catheter was placed under fluoroscopic [...] Glucose, Fingerstick (11/19/2024 11:39 AM EST) Pathologist [facility] POC Glucose 205(H) 65 - 99 mg/dL 11/19/2024 11:40 AM EST Blood specimen / Unknown 11/19/2024 11:39 AM EST 11/19/2024 11:40 AM EST Dallas Camejo MD POINT OF CARE TEST O RDERALUCILLE Performing Organization Address [facility] Co de Phone Number HOSPITAL LAB See Below * (ABNORMAL) POCT Glucose, Fingerstick (11/19/2024 8:06 AM EST) Pathologist [facility] POC Glucose 190(H) 65 - 99 mg/dL 11/19/2024 8:08 AM EST Blood specimen / Unknown 11/19/2024 8:06 AM EST 11/19/2024 8:08 AM EST Dallas Camejo MD POINT OF CARE TEST O RDERALUCILLE Performing Organization Address [facility]/ZIP Co de Phone Number HOSPITAL LAB See Below * (ABNORMAL) Complete Blood Count WITHOUT Differential - Daily x2 (11/19/2024 7:54 AM EST) Pathologist [facility] White Blood Cell Count 10.1 4.0 - 11.0 Thou/uL 11/19/2024 8:48 AM EST [facility] Platelet Count 354 150 - 450 Thou/uL 11/19/2024 8:48 AM EST [facility] Hemoglobin 8.2(L) 13.0 - 17.7 g/dL 11/19/2024 8:48 AM [facility] Hematocrit 26.6(L) 39.0 - 54.0 % 11/19/2024 8:48 AM [facility] Red Blood Cell Count 2.99(L) 4.50 - 6.20 Mil/uL 11/19/2024 8:48 AM [facility] MCV 89 80 - 100 fL 11/19/2024 8:48 AM [facility] MCH 27.4 27.0 - 31.0 pg 11/19/2024 8:48 AM [facility] MCHC 30.8 30.0 - 36.0 g/dL 11/19/2024 8:48 AM [facility] RDW 17.2(H) 11.5 - 14.5 % 11/19/2024 8:48 AM [facility] MPV 10.8 7.5 - 12.5 fL 11/19/2024 8:48 AM [facility] Blood Blood specimen / Unknown 11/19/2024 7:54 AM EST 11/19/2024 8:33 AM EST Corbin Lamb APRN LAB BLOOD ORDERABL ES Performing Organization Address City/[facility]/[place] [address], [place] [address] * Magnesium (Daily x 2 days) (11/19/2024 7:54 AM EST) Magnesium 2.1 1.6 - 2.7 mg/dL 11/19/2024 9:00 AM [facility] Blood (Plasma/Serum) 11/19/2024 7:54 AM EST 11/19/2024 8:33 AM EST Corbin Lamb APRN [place] [address], [place] [address] * (ABNORMAL) Basic Metabolic Panel (Daily x 2 days) (11/19/2024 7:54 AM EST) Glucose 169(H) 65 - 99 mg/dL 11/19/2024 9:00 AM [facility] Comment:Fasting: <100 mg/dL, Non-Fasting: <200 mg/dL (ADA 2004) Blood Urea Nitrogen (BUN) 43(H) 8 - 21 mg/dL 11/19/2024 9:00 AM [facility] Creatinine 1.8(H) 0.5 - 1.3 mg/dL 11/19/2024 9:00 AM [facility] eGFR 42(L) >59 11/19/2024 9:00 AM [facility] Comment:CKD-EPI (2020) in mL /min/1.73 sq meters. Sodium 132(L) 136 - 145 mmol/L 11/19/2024 9:00 AM [facility] Potassium 3.7 3.4 - 5.3 mmol/L 11/19/2024 9:00 AM [facility] Chloride 92(L) 98 - 107 mmol/L 11/19/2024 9:00 AM [facility] CO2 30 22 - 33 mmol/L 11/19/2024 9:00 AM [facility] Anion Gap 10 7 - 17 11/19/2024 9:00 AM [facility] Calcium 9.1 8.7 - 10.5 mg/dL 11/19/2024 9:00 AM [facility] BUN/Creatinine Ratio 24 10.0 - 25.0 Ratio 11/19/2024 9:00 AM [facility] Blood (Plasma/Serum) 11/19/2024 7:54 AM EST 11/19/2024 8:33 AM EST Corbin Lamb APRN LAB BLOOD ORDERABL ES [facility] [address] [place] [address], [facility] [address] [place] [address] * (ABNORMAL) POCT Glucose, Fingerstick (11/18/2024 9:04 PM EST) POC Glucose 253(H) 65 - 99 mg/dL 11/18/2024 9:11 PM EST Blood specimen / Unknown 11/18/2024 9:04 PM EST 11/18/2024 9:11 PM EST Dallas Camejo MD POINT OF CARE TEST O RDERABLES Performing Organization Address [facility] Phone Number [facility] LAB See Below * (ABNORMAL) POCT Glucose, Fingerstick (11/18/2024 4:56 PM EST) POC Glucose 305(H) 65 - 99 mg/dL 11/18/2024 4:58 PM EST Blood specimen / Unknown 11/18/2024 4:56 PM EST 11/18/2024 4:57 PM EST Dallas Camejo MD POINT OF CARE TEST [place] Performing Organization Address [facility] Number [facility] LAB See Below * (ABNORMAL) POCT Glucose, Fingerstick (11/18/2024 12:00 PM EST) POC Glucose 253(H) 65 - 99 mg/dL 11/18/2024 12:01 PM EST Blood specimen / Unknown 11/18/2024 12:00 PM EST 11/18/2024 12:01 PM EST Dallas Camejo MD POINT OF CARE TEST O RDERABLES Performing Organization Address [facility] Phone Number HOSPITAL LAB See Below * (ABNORMAL) POCT Glucose, Fingerstick (11/18/2024 7:53 AM EST) POC Glucose 129(H) 65 - 99 mg/dL 11/18/2024 7:58 AM EST Blood specimen / Unknown 11/18/2024 7:53 AM EST 11/18/2024 7:58 AM EST Dallas Camejo MD POINT OF CARE TEST [place] Performing Organization Address [facility] Phone Number HOSPITAL LAB See Below * PM SINGLE LEAD EVAL WITH PROGRAM,[id number] (11/18/2024 7:45 AM EST) Date Time Interrogation Session [id number] [id number] PACEART Implantable Pulse Generator Clinical Trials Specialist [employer] PACEART Implantable Pulse Generator Model [id number] Micra AV2 PACEART Implantable Pulse Generator Serial Number [id number] PACEART Implantable Pulse Generator Type Pacemaker PACEART [...] last reset 92.76 % PACEART Otf Statistic UNDERGROUND CONDUIT INSTALLER Percent 99.88 % PACEART Otf Statistic VS Percent 0.12 % PACEART Anatomical Region Laterality Modality Other 11/18/2024 7:35 AM EST Narrative 11/19/2024 12:19 PM EST Pacemaker evaluation completed on B10E, device interrogation ordered for post-OP. Presenting rhythm: AM-UNDERGROUND CONDUIT INSTALLER @ 69 bpm. Underlying rhythm: No ventricular response greater than 40 bpm. AM-UNDERGROUND CONDUIT INSTALLER @ 84.8%. Battery and device parameters evaluated and within normal limits. Normal pacemaker function. Micra pacemakers do not record events. Sri Pena RN Corbin Lamb APRN CV CARDIAC SERVICE S ORDERABLES * Creatine Kinase (CK) (11/18/2024 7:15 AM EST) Creatine Kinase (CK) 49 24 - 204 U/L 11/18/2024 8:22 AM EST [facility] Blood (Plasma/Serum) 11/18/2024 7:15 AM EST 11/18/2024 7:47 AM EST Corbin Barrigaabrese SHUBHAM LAB BLOOD ORDERABL ES Performing Organization Address City/[facility]/ZIP Co de Phone Number [address] [address], [address] [address] * (ABNORMAL) Complete Blood Count WITHOUT Differential - Daily x2 (11/18/2024 7:15 AM EST) White Blood Cell Count 12.3(H) 4.0 - 11.0 Thou/uL 11/18/2024 8:00 AM [facility] Platelet Count 349 150 - 450 Thou/uL 11/18/2024 8:00 AM [facility] Hemoglobin 8.1(L) 13.0 - 17.7 g/dL 11/18/2024 8:00 AM [facility] Hematocrit 25.5(L) 39.0 - 54.0 % 11/18/2024 8:00 AM [facility] Red Blood Cell Count 2.90(L) 4.50 - 6.20 Mil/uL 11/18/2024 8:00 AM [facility] MCV 88 80 - 100 fL 11/18/2024 8:00 AM [facility] MCH 27.9 27.0 - 31.0 pg 11/18/2024 8:00 AM [facility] MCHC 31.8 30.0 - 36.0 g/dL 11/18/2024 8:00 AM [facility] RDW 17.1(H) 11.5 - 14.5 % 11/18/2024 8:00 AM [facility] MPV 10.6 7.5 - 12.5 fL 11/18/2024 8:00 AM [facility] Blood Blood specimen / Unknown 11/18/2024 7:15 AM EST 11/18/2024 7:47 AM EST Corbin Adonislayla JALLOH LAB BLOOD ORDERABL ES [address] [address], [address] [address] * Magnesium (Daily x 2 days) (11/18/2024 7:15 AM EST) Magnesium 2.0 1.6 - 2.7 mg/dL 11/18/2024 8:22 AM [facility] Blood (Plasma/Serum) 11/18/2024 7:15 AM EST 11/18/2024 7:47 AM EST Corbin Adonis REEL WORKER LAB BLOOD ORDERABL ES [address] [address], [address] [address] * (ABNORMAL) Basic Metabolic Panel (Daily x 2 days) (11/18/2024 7:15 AM EST) Glucose 114(H) 65 - 99 mg/dL 11/18/2024 8:22 AM [facility] Comment:Fasting: <100 mg/dL, Non-Fasting: <200 mg/dL (ADA 2004) Blood Urea Nitrogen (BUN) 45(H) 8 - 21 mg/dL 11/18/2024 8:22 AM [facility] Creatinine 1.8(H) 0.5 - 1.3 mg/dL 11/18/2024 8:22 AM [facility] eGFR 42(L) >59 11/18/2024 8:22 AM [facility] Comment:CKD-EPI (2020) in mL /min/1.73 sq meters. Sodium 129(L) 136 - 145 mmol/L 11/18/2024 8:22 AM [facility] Potassium 3.6 3.4 - 5.3 mmol/L 11/18/2024 8:22 AM [facility] Chloride 89(L) 98 - 107 mmol/L 11/18/2024 8:22 AM [facility] CO2 29 22 - 33 mmol/L 11/18/2024 8:22 AM [facility] Anion Gap 11 7 - 17 11/18/2024 8:22 AM [facility] Calcium 8.9 8.7 - 10.5 mg/dL 11/18/2024 8:22 AM EST [facility] BUN/Creatinine Ratio 25 10.0 - 25.0 Ratio 11/18/2024 8:22 AM EST [facility] Blood (Plasma/Serum) 11/18/2024 7:15 AM EST 11/18/2024 7:47 AM EST Corbin Lamb APRN LAB BLOOD ORDERABL ES [address] [address], [address] [address] * XR Chest 1 view (11/17/2024 5:48 [...] femoral venous access was obtained. ??A 12 Filipino sheath was placed in the right femoral vein. ?? Through this an Amplatz stiff wire was advanced under fluoroscopic visualization to the right IJ. ??Using ultrasound-guided Seldinger technique left femoral venous access was obtained. ??8 Filipino sheath was placed in left femoral vein. [...] support. ??We then began with a 14 Filipino laser sheath. ??Under fluoroscopic visualization we started with the right ventricular lead. ?? 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 ??We were able to progress to the innominate area. ??Here we reached the innominate region and had significant fibrosis. ??We then remove the 14 Filipino laser sheath and moved to the right [...] then used the right femoral venous 12 Filipino sheath and Amplatz wire which was in [...] ventricle positioning on the septum. ??ADAME and [place] position confirmed our placement.We did an initial deployment here. ??Sensing of paced R wave was 12 mV. ??Device impedance was 520 ohms. ??Threshold was initially 1.5 V that decreased to 1.2 V. ??However remained at 1.2 V at 0.24 ms. ??We therefore retrieved the device back into the deploying sheath. ??We then moved the device slightly superior. ??ADAME and [place] position to confirm septal position. ??Initial testing [...] ??Z stitch was placed around the 8 Filipino sheath as well and the sheath was [...] CARE TEST O RDERABLES Performing Organization Address [facility] de Phone Number [facility] LAB See Below * (ABNORMAL) POCT Glucose, Fingerstick (11/17/2024 11:18 AM EST) POC Glucose 153(H) 65 - 99 mg/dL 11/17/2024 11:22 AM EST Blood specimen / Unknown 11/17/2024 11:18 AM EST 11/17/2024 11:22 AM EST Dallas Camejo MD POINT OF CARE TEST O RDERABLES Performing Organization Address [facility] Phone Number [facility] LAB See Below * Phosphorus (AM) (11/17/2024 8:16 AM EST) Phosphorus 3.5 2.7 - 4.5 mg/dL 11/17/2024 9:01 AM EST [facility] Blood (Plasma/Serum) 11/17/2024 8:16 AM EST 11/17/2024 8:30 AM EST Maddison Villalpando MD LAB BLOOD ORDERABLES Performing Organization Address [facility] [place] [address], [address] [address] * Magnesium (AM) (11/17/2024 8:16 AM EST) Magnesium 2.0 1.6 - 2.7 mg/dL 11/17/2024 9:01 AM EST [facility] Blood (Plasma/Serum) 11/17/2024 8:16 AM EST 11/17/2024 8:30 AM EST Maddison Villalpando MD LAB BLOOD ORDERABLES Performing Organization Address [facility] [place] [address], [place] [id number] * (ABNORMAL) POCT Glucose, Fingerstick (11/17/2024 7:20 AM EST) POC Glucose 206(H) 65 - 99 mg/dL 11/17/2024 7:31 AM EST Blood specimen / Unknown 11/17/2024 7:20 AM EST 11/17/2024 7:30 AM EST Dallas Camejo MD POINT OF CARE TEST O RDERABLES HOSPITAL LAB See Below * (ABNORMAL) Complete Blood Count WITHOUT Differential - STAT (11/17/2024 5:00 AM EST) Pathologist [facility] White Blood Cell Count 11.2(H) 4.0 - 11.0 Thou/uL 11/17/2024 5:26 AM [facility] Platelet Count 373 150 - 450 Thou/uL 11/17/2024 5:26 AM [facility] Hemoglobin 8.2(L) 13.0 - 17.7 g/dL 11/17/2024 5:26 AM [facility] Hematocrit 25.0(L) 39.0 - 54.0 % 11/17/2024 5:26 AM [facility] Red Blood Cell Count 2.94(L) 4.50 - 6.20 Mil/uL 11/17/2024 5:26 AM [facility] MCV 85 80 - 100 fL 11/17/2024 5:26 AM [facility] MCH 27.9 27.0 - 31.0 pg 11/17/2024 5:26 AM [facility] MCHC 32.8 30.0 - 36.0 g/dL 11/17/2024 5:26 AM [facility] RDW 16.5(H) 11.5 - 14.5 % 11/17/2024 5:26 AM [facility] MPV 10.4 7.5 - 12.5 fL 11/17/2024 5:26 AM [facility] Blood Blood specimen / Unknown 11/17/2024 5:00 AM EST 11/17/2024 5:09 AM EST Adithya Sheriff PA-C LAB BLOOD ORDERAB LES [address] [address], [address] [address] * (ABNORMAL) Comprehensive Metabolic Panel (AM) (11/17/2024 5:00 AM EST) Glucose 171(H) 65 - 99 mg/dL 11/17/2024 6:55 AM [facility] Comment:Fasting: <100 mg/dL, Non-Fasting: <200 mg/dL (ADA 2004) Blood Urea Nitrogen (BUN) 54(H) 8 - 21 mg/dL 11/17/2024 6:55 AM [facility] Creatinine 1.8(H) 0.5 - 1.3 mg/dL 11/17/2024 6:55 AM [facility] eGFR 42(L) >59 11/17/2024 6:55 AM [facility] Comment:CKD-EPI (2020) in mL /min/1.73 sq meters. Sodium 128(L) 136 - 145 mmol/L 11/17/2024 6:55 AM [facility] Potassium 3.7 3.4 - 5.3 mmol/L 11/17/2024 6:55 AM [facility] Chloride 87(L) 98 - 107 mmol/L 11/17/2024 6:55 AM [facility] CO2 30 22 - 33 mmol/L 11/17/2024 6:55 AM [facility] Calcium 9.4 8.7 - 10.5 mg/dL 11/17/2024 6:55 AM [facility] Alkaline Phosphatase 117 45 - 128 U/L 11/17/2024 6:55 AM [facility] Aspartate Aminotrans (AST) 24 10 - 55 U/L 11/17/2024 6:55 AM [facility] Alanine Aminotrans (ALT) 19 10 - 55 U/L 11/17/2024 6:55 AM [facility] Bilirubin, Total 0.2 0.2 - 1.0 mg/dL 11/17/2024 6:55 AM [facility] Protein, Total 6.6 6.3 - 8.3 g/dL 11/17/2024 6:55 AM [facility] Albumin 2.9(L) 3.4 - 4.8 g/dL 11/17/2024 6:55 AM [facility] BUN/Creatinine Ratio 30(H) 10.0 - 25.0 Ratio 11/17/2024 6:55 AM [facility] Globulin 3.7 1.5 - 3.9 g/dL 11/17/2024 6:55 AM [facility] Albumin/Globulin Ratio 0.8(L) 1.0 - 3.0 Ratio 11/17/2024 6:55 AM [facility] Anion Gap 11 7 - 17 11/17/2024 6:55 AM [facility] Blood (Plasma/Serum) 11/17/2024 5:00 AM EST 11/17/2024 5:09 AM EST Adithya Sheriff PA-C LAB BLOOD ORDERAB LES Performing Organization Address City/[facility]/[place] [address], [place] [address] * (ABNORMAL) POCT Glucose, Fingerstick (11/16/2024 8:09 [...] MD POINT OF CARE TEST O RDERABLES [facility] LAB See Below * (ABNORMAL) POCT Glucose, Fingerstick (11/16/2024 7:37 AM EST) POC Glucose 211(H) 65 - 99 mg/dL 11/16/2024 7:52 AM EST Blood specimen / Unknown 11/16/2024 7:37 AM EST 11/16/2024 7:52 AM EST Dallas Camejo MD POINT OF CARE TEST O RDERABLES Performing Organization Address City/[facility] Co de Phone Number [facility] LAB See Below * Phosphorus (AM) (11/16/2024 7:23 AM EST) Phosphorus 3.8 2.7 - 4.5 mg/dL 11/16/2024 8:34 AM EST [facility] Blood (Plasma/Serum) 11/16/2024 7:23 AM EST 11/16/2024 7:51 AM EST Maddison Villalpando MD LAB BLOOD ORDERABLES Performing Organization Address [facility] Co de Phone Number [address] [address], [address] [address] * Magnesium (AM) (11/16/2024 7:23 AM EST) Magnesium 2.1 1.6 - 2.7 mg/dL 11/16/2024 8:34 AM [facility] Blood (Plasma/Serum) 11/16/2024 7:23 AM EST 11/16/2024 7:51 AM EST Maddison Villalpando MD LAB BLOOD ORDERABLES [address] [address], [address] [address] * (ABNORMAL) Basic Metabolic Panel (AM) (11/16/2024 7:23 AM EST) Glucose 190(H) 65 - 99 mg/dL 11/16/2024 8:34 AM [facility] Comment:Fasting: <100 mg/dL, Non-Fasting: <200 mg/dL (ADA 2004) Blood Urea Nitrogen (BUN) 55(H) 8 - 21 mg/dL 11/16/2024 8:34 AM [facility] Creatinine 1.9(H) 0.5 - 1.3 mg/dL 11/16/2024 8:34 AM [facility] eGFR 39(L) >59 11/16/2024 8:34 AM [facility] Comment:CKD-EPI (2020) in mL /min/1.73 sq meters. Sodium 130(L) 136 - 145 mmol/L 11/16/2024 8:34 AM [facility] Potassium 3.6 3.4 - 5.3 mmol/L 11/16/2024 8:34 AM [facility] Chloride 87(L) 98 - 107 mmol/L 11/16/2024 8:34 AM [facility] CO2 32 22 - 33 mmol/L 11/16/2024 8:34 AM [facility] Anion Gap 11 7 - 17 11/16/2024 8:34 AM [facility] Calcium 9.1 8.7 - 10.5 mg/dL 11/16/2024 8:34 AM [facility] BUN/Creatinine Ratio 29(H) 10.0 - 25.0 Ratio 11/16/2024 8:34 AM [facility] Blood (Plasma/Serum) 11/16/2024 7:23 AM EST 11/16/2024 7:51 AM EST Maddison Villalpando MD LAB BLOOD ORDERABLES Performing Organization Address City/[facility]/ZIP Co de Phone Number [address] [address], [place] [address] * (ABNORMAL) Complete Blood Count WITHOUT Differential - in AM (11/16/2024 7:23 AM EST) White Blood Cell Count 10.7 4.0 - 11.0 Thou/uL 11/16/2024 8:10 AM [facility] Platelet Count 408 150 - 450 Thou/uL 11/16/2024 8:10 AM [facility] Hemoglobin 8.1(L) 13.0 - 17.7 g/dL 11/16/2024 8:10 AM [facility] Hematocrit 25.6(L) 39.0 - 54.0 % 11/16/2024 8:10 AM [facility] Red Blood Cell Count 2.97(L) 4.50 - 6.20 Mil/uL 11/16/2024 8:10 AM [facility] MCV 86 80 - 100 fL 11/16/2024 8:10 AM [facility] MCH 27.3 27.0 - 31.0 pg 11/16/2024 8:10 AM [facility] MCHC 31.6 30.0 - 36.0 g/dL 11/16/2024 8:10 AM [facility] RDW 16.8(H) 11.5 - 14.5 % 11/16/2024 8:10 AM [facility] MPV 10.4 7.5 - 12.5 fL 11/16/2024 8:10 AM [facility] Blood Blood specimen / Unknown 11/16/2024 7:23 AM EST 11/16/2024 7:51 AM EST Maddison Villalpando MD LAB [place] [address], [place] [address] * Type and Screen (11/16/2024 7:23 AM [facility]) ABO/Rh A POSITIVE 11/16/2024 8:39 AM [facility] Antibody Screen NEGATIVE 11/16/2024 8:53 AM [facility] Specimen Expiration 11/19/2024 11/16/2024 8:39 AM [facility] Unit Number [id number] 11/16/2024 9:12 AM [facility] Blood Component Type LEUKOREDUCED RED CELLS 11/16/2024 9:12 AM [facility] Unit Division 00 11/16/2024 9:12 AM [facility] Unit Status REL FROM ALLOC 2:05 AM [facility] Transfusion Status OK TO TRANSFUSE 11/16/2024 9:12 AM [facility] Crossmatch Result Electronically Compatible 11/16/2024 9:12 AM [facility] Unit Number [id number] 11/16/2024 9:12 AM [facility] Blood Component Type LEUKOREDUCED RED CELLS 11/16/2024 9:12 AM [facility] Unit Division 00 11/16/2024 9:12 AM [facility] Unit Status REL FROM ALLOC 2:05 AM [facility] Transfusion Status OK TO TRANSFUSE 11/16/2024 9:12 AM [facility] Crossmatch Result Electronically Compatible 11/16/2024 9:12 AM [facility] Unit Number [id number] 11/16/2024 9:12 AM [facility] Blood Component Type LEUKOREDUCED RED CELLS 11/16/2024 9:12 AM [facility] Unit Division 00 11/16/2024 9:12 AM [facility] [facility] Unit Status REL FROM ALLOC 2:05 AM [facility] Transfusion Status OK TO TRANSFUSE 11/16/2024 9:12 AM [facility] Crossmatch Result Electronically Compatible 11/16/2024 9:12 AM [facility] Unit Number [id number] 11/16/2024 9:12 AM [facility] Blood Component Type LEUKOREDUCED RED CELLS 11/16/2024 9:12 AM [facility] Unit Division 00 11/16/2024 9:12 AM EST [facility] Unit Status REL FROM ALLOC 2:05 AM EST [facility] Transfusion Status OK TO TRANSFUSE 11/16/2024 9:12 AM EST [facility] Crossmatch Result Electronically Compatible 11/16/2024 9:12 AM EST [facility] Blood Blood specimen / Unknown 11/16/2024 7:23 AM EST 11/16/2024 7:57 AM EST Comment:Blood Cristina Rodriguez APRN BLOOD BANK TEST OR DERABLES [place] [address] * (ABNORMAL) POCT Glucose, Fingerstick (11/15/2024 8:14 PM EST) POC Glucose 330(H) 65 - 99 mg/dL 11/15/2024 8:15 PM EST Blood specimen / Unknown 11/15/2024 8:14 PM EST 11/15/2024 8:15 PM EST Dallas Camejo MD POINT OF CARE TEST O RDERABLES Performing Organization Address City/[facility]/ZIP Co de Phone Number HOSPITAL LAB See Below * (ABNORMAL) POCT Glucose, Fingerstick (11/15/2024 4:10 PM EST) POC Glucose 308(H) 65 - 99 mg/dL 11/15/2024 4:11 PM EST Blood specimen / Unknown 11/15/2024 4:10 PM EST 11/15/2024 4:11 PM EST Dallas Camejo MD POINT OF CARE TEST O RDERABLES Performing Organization Address City/[facility]/ZIP Co de Phone Number HOSPITAL [...] BLOOD BANK PRODUCT ORDERABLES Performing Organization Address City/[facility]/ZIP Co de Phone Number HOSPITAL LAB See Below * Phosphorus (AM) (11/15/2024 8:08 AM EST) Phosphorus 4.3 2.7 - 4.5 mg/dL 11/15/2024 9:21 AM EST [facility] Blood (Plasma/Serum) 11/15/2024 8:08 AM EST 11/15/2024 8:57 AM EST Maddison Villalpando MD LAB BLOOD ORDERABLES Performing Organization Address [facility] [place] [address], [place] [address] * Magnesium (AM) (11/15/2024 8:08 AM EST) Magnesium 2.1 1.6 - 2.7 mg/dL 11/15/2024 9:21 AM EST [facility] Blood (Plasma/Serum) 11/15/2024 8:08 AM EST 11/15/2024 8:57 AM EST Maddison Villalpando MD [place] [address], [place] [address] * (ABNORMAL) Basic Metabolic Panel (AM) (11/15/2024 8:08 AM EST) Glucose 218(H) 65 - 99 mg/dL 11/15/2024 9:21 AM [facility] Comment:Fasting: <100 mg/dL, Non-Fasting: <200 mg/dL (ADA 2004) Blood Urea Nitrogen (BUN) 59(H) 8 - 21 mg/dL 11/15/2024 9:21 AM [facility] Creatinine 1.8(H) 0.5 - 1.3 mg/dL 11/15/2024 9:21 AM [facility] eGFR 42(L) >59 11/15/2024 9:21 AM [facility] Comment:CKD-EPI (2020) in mL /min/1.73 sq meters. Sodium 131(L) 136 - 145 mmol/L 11/15/2024 9:21 AM [facility] Potassium 3.9 3.4 - 5.3 mmol/L 11/15/2024 9:21 AM [facility] Chloride 85(L) 98 - 107 mmol/L 11/15/2024 9:21 AM [facility] CO2 34(H) 22 - 33 mmol/L 11/15/2024 9:21 AM [facility] Anion Gap 12 7 - 17 11/15/2024 9:21 AM [facility] Calcium 9.4 8.7 - 10.5 mg/dL 11/15/2024 9:21 AM [facility] BUN/Creatinine Ratio 33(H) 10.0 - 25.0 Ratio 11/15/2024 9:21 AM [facility] Blood (Plasma/Serum) 11/15/2024 8:08 AM EST 11/15/2024 8:57 AM EST Maddison Villalpando MD LAB BLOOD ORDERABLES [address] [address], [place] [address] * (ABNORMAL) Complete Blood Count WITHOUT Differential - in AM (11/15/2024 8:08 AM EST) [facility] White Blood Cell Count 11.8(H) 4.0 - 11.0 Thou/uL 11/15/2024 9:06 AM [facility] Platelet Count 485(H) 150 - 450 Thou/uL 11/15/2024 9:06 AM [facility] Hemoglobin 8.9(L) 13.0 - 17.7 g/dL 11/15/2024 9:06 AM [facility] Hematocrit 28.9(L) 39.0 - 54.0 % 11/15/2024 9:06 AM [facility] Red Blood Cell Count 3.27(L) 4.50 - 6.20 Mil/uL 11/15/2024 9:06 AM [facility] MCV 88 80 - 100 fL 11/15/2024 9:06 AM [facility] MCH 27.2 27.0 - 31.0 pg 11/15/2024 9:06 AM [facility] MCHC 30.8 30.0 - 36.0 g/dL 11/15/2024 9:06 AM [facility] RDW 16.8(H) 11.5 - 14.5 % 11/15/2024 9:06 AM [facility] MPV 10.4 7.5 - 12.5 fL 11/15/2024 9:06 AM [facility] Blood Blood specimen / Unknown 11/15/2024 8:08 AM EST 11/15/2024 8:57 AM EST Maddison Villalpando MD [place] [address], [place] [address] * (ABNORMAL) proBNP, N-terminal (11/15/2024 8:08 AM EST) Pathologist [facility] proBNP, N-terminal 429(H) <125 pg/mL 11/15/2024 9:21 AM [facility] Blood Plasma specimen / Unknown 11/15/2024 8:08 AM EST 11/15/2024 8:57 AM EST Valencia Lau REEL WORKER LAB BLOOD ORDERAB LES Performing Organization Address [facility] Co de Phone Number [address] [address], [address] [address] * (ABNORMAL) POCT Glucose, Fingerstick (11/15/2024 7:36 AM EST) POC Glucose 230(H) 65 - 99 mg/dL 11/15/2024 7:54 AM EST Blood specimen / Unknown 11/15/2024 7:36 AM EST 11/15/2024 7:54 AM EST Dallas Camejo MD POINT OF CARE TEST O RDGHANSHYAM Performing Organization Address [facility] Co de Phone Number [facility] LAB See Below * [...] - STAT (11/14/2024 10:31 AM EST) Pathologist [facility] White Blood Cell Count 10.6 4.0 - 11.0 Thou/uL 11/14/2024 11:21 AM [facility] Platelet Count 471(H) 150 - 450 Thou/uL 11/14/2024 11:21 AM [facility] Hemoglobin 8.9(L) 13.0 - 17.7 g/dL 11/14/2024 11:21 AM [facility] Hematocrit 28.9(L) 39.0 - 54.0 % 11/14/2024 11:21 AM [facility] Red Blood Cell Count 3.25(L) 4.50 - 6.20 Mil/uL 11/14/2024 11:21 AM [facility] MCV 89 80 - 100 fL 11/14/2024 11:21 AM [facility] MCH 27.4 27.0 - 31.0 pg 11/14/2024 11:21 AM [facility] MCHC 30.8 30.0 - 36.0 g/dL 11/14/2024 11:21 AM [facility] RDW 17.1(H) 11.5 - 14.5 % 11/14/2024 11:21 AM [facility] MPV 10.3 7.5 - 12.5 fL 11/14/2024 11:21 AM [facility] Blood Blood specimen / Unknown 11/14/2024 10:31 AM EST 11/14/2024 11:15 AM EST Maddison Villalpando MD LAB BLOOD ORDERABLES Performing Organization Address [facility] [place] [address], [place] [address] * (ABNORMAL) Phosphorus (Routine) (11/14/2024 10:31 AM EST) Phosphorus 6.1(H) 2.7 - 4.5 mg/dL 11/14/2024 11:39 AM EST [facility] Blood (Plasma/Serum) 11/14/2024 10:31 AM EST 11/14/2024 11:15 AM EST Maddison Villalpando MD LAB BLOOD ORDERABLES Performing Organization Address [facility] [place] [address], [place] [address] * Magnesium (Routine) (11/14/2024 10:31 AM EST) Magnesium 2.1 1.6 - 2.7 mg/dL 11/14/2024 11:39 AM [facility] Blood (Plasma/Serum) 11/14/2024 10:31 AM EST 11/14/2024 11:15 AM EST Maddison Villalpando MD LAB BLOOD ORDERABLES Performing Organization Address [facility] [place] [address], [place] [address] * (ABNORMAL) Basic Metabolic Panel (STAT) (11/14/2024 10:31 AM EST) Glucose 319(H) 65 - 99 mg/dL 11/14/2024 11:39 AM [facility] Comment:Fasting: <100 mg/dL, Non-Fasting: <200 mg/dL (ADA 2005) Blood Urea Nitrogen (BUN) 65(H) 8 - 21 mg/dL 11/14/2024 11:39 AM [facility] Creatinine 2.1(H) 0.5 - 1.3 mg/dL 11/14/2024 11:39 AM [facility] eGFR 35(L) >59 11/14/2024 11:39 AM [facility] Comment:CKD-EPI (2020) in mL /min/1.73 sq meters. Sodium 132(L) 136 - 145 mmol/L 11/14/2024 11:39 AM [facility] Potassium 4.0 3.4 - 5.3 mmol/L 11/14/2024 11:39 AM [facility] Chloride 85(L) 98 - 107 mmol/L 11/14/2024 11:39 AM [facility] CO2 34(H) 22 - 33 mmol/L 11/14/2024 11:39 AM [facility] Anion Gap 13 7 - 17 11/14/2024 11:39 AM [facility] Calcium 9.4 8.7 - 10.5 mg/dL 11/14/2024 11:39 AM [facility] BUN/Creatinine Ratio 31(H) 10.0 - 25.0 Ratio 11/14/2024 11:39 AM [facility] Blood (Plasma/Serum) 11/14/2024 10:31 AM EST 11/14/2024 11:15 AM EST Maddison Villalpando MD LAB BLOOD ORDERABLES Performing Organization Address City/[facility]/[place] [address], [place] [address] * (ABNORMAL) POCT Glucose, Fingerstick (11/14/2024 7:45 [...] CARE TEST O JOSEPH Performing Organization Address City/[facility]/ZIP Co de Phone Number [facility] LAB See Below * [...] CARE TEST O RDERABLES Performing Organization Address [facility] Co de Phone Number [facility] LAB See Below * (ABNORMAL) POCT Glucose, Fingerstick (11/13/2024 8:12 AM EST) POC Glucose 159(H) 65 - 99 mg/dL 11/13/2024 8:15 AM EST Blood specimen / Unknown 11/13/2024 8:12 AM EST 11/13/2024 8:15 AM EST Dallas Camejo MD POINT OF CARE TEST O RDERABLES Performing Organization Address [facility] Phone Number [facility] LAB See Below * (ABNORMAL) proBNP, N-terminal (11/13/2024 7:30 AM EST) proBNP, N-terminal 994(H) <125 pg/mL 11/13/2024 11:05 AM EST [facility] Plasma specimen / Unknown 11/13/2024 7:30 AM EST 11/13/2024 8:09 AM EST Maddison Villalpando MD LAB BLOOD ORDERABLES Performing Organization Address [facility] [place] [address], [place] [address] * (ABNORMAL) Phosphorus (AM) (11/13/2024 7:30 AM EST) Pathologist [facility] Phosphorus 4.9(H) 2.7 - 4.5 mg/dL 11/13/2024 8:45 AM EST [facility] Blood (Plasma/Serum) 11/13/2024 7:30 AM EST 11/13/2024 8:09 AM EST Maddison Villalpando MD LAB BLOOD ORDERABLES Performing Organization Address [facility] [place] [address], [place] [address] * Magnesium (AM) (11/13/2024 7:30 AM EST) Magnesium 1.7 1.6 - 2.7 mg/dL 11/13/2024 8:45 AM [facility] Blood (Plasma/Serum) 11/13/2024 7:30 AM EST 11/13/2024 8:09 AM EST Maddison Villalpando MD [place] [address], [place] [address] * (ABNORMAL) Complete Blood Count WITHOUT Differential - in AM (11/13/2024 7:30 AM EST) White Blood Cell Count 11.8(H) 4.0 - 11.0 Thou/uL 11/13/2024 8:28 AM [facility] Platelet Count 486(H) 150 - 450 Thou/uL 11/13/2024 8:28 AM [facility] Hemoglobin 9.2(L) 13.0 - 17.7 g/dL 11/13/2024 8:28 AM [facility] Hematocrit 29.8(L) 39.0 - 54.0 % 11/13/2024 8:28 AM [facility] Red Blood Cell Count 3.34(L) 4.50 - 6.20 Mil/uL 11/13/2024 8:28 AM [facility] MCV 89 80 - 100 fL 11/13/2024 8:28 AM [facility] MCH 27.5 27.0 - 31.0 pg 11/13/2024 8:28 AM [facility] MCHC 30.9 30.0 - 36.0 g/dL 11/13/2024 8:28 AM [facility] RDW 16.9(H) 11.5 - 14.5 % 11/13/2024 8:28 AM [facility] MPV 9.8 7.5 - 12.5 fL 11/13/2024 8:28 AM [facility] Blood Blood specimen / Unknown 11/13/2024 7:30 AM EST 11/13/2024 8:09 AM EST Maddison Villalpando MD LAB BLOOD ORDERABLES [facility] [address] [place] [address], [place] [address] * (ABNORMAL) Basic Metabolic Panel (AM) (11/13/2024 7:30 AM EST) Glucose 154(H) 65 - 99 mg/dL 11/13/2024 8:45 AM [facility] Comment:Fasting: <100 mg/dL, Non-Fasting: <200 mg/dL (ADA 2004) Blood Urea Nitrogen (BUN) 44(H) 8 - 21 mg/dL 11/13/2024 8:45 AM [facility] Creatinine 1.7(H) 0.5 - 1.3 mg/dL 11/13/2024 8:45 AM [facility] eGFR 45(L) >59 11/13/2024 8:45 AM [facility] Comment:CKD-EPI (2020) in mL /min/1.73 sq meters. Sodium 140 136 - 145 mmol/L 11/13/2024 8:45 AM [facility] Potassium 3.6 3.4 - 5.3 mmol/L 11/13/2024 8:45 AM [facility] Chloride 91(L) 98 - 107 mmol/L 11/13/2024 8:45 AM [facility] CO2 35(H) 22 - 33 mmol/L 11/13/2024 8:45 AM [facility] Anion Gap 14 7 - 17 11/13/2024 8:45 AM [facility] Calcium 9.7 8.7 - 10.5 mg/dL 11/13/2024 8:45 AM [facility] BUN/Creatinine Ratio 26(H) 10.0 - 25.0 Ratio 11/13/2024 8:45 AM [facility] Blood (Plasma/Serum) 11/13/2024 7:30 AM EST 11/13/2024 8:09 AM EST Maddison Villalpando MD LAB BLOOD ORDERABLES Performing Organization Address [facility]/ZIP Co de Phone Number [address] [address], [address] [address] * (ABNORMAL) POCT Glucose, Fingerstick (11/13/2024 3:59 AM EST) POC Glucose 156(H) 65 - 99 mg/dL 11/13/2024 4:03 AM EST Blood specimen / Unknown 11/13/2024 3:59 AM EST 11/13/2024 4:03 AM EST Dallas Camejo MD POINT OF CARE TEST O RDERABLES Performing Organization Address [facility] Co de Phone Number [facility] LAB See Below * (ABNORMAL) POCT Glucose, Fingerstick (11/13/2024 12:27 AM EST) POC Glucose 139(H) 65 - 99 mg/dL 11/13/2024 12:31 AM EST Blood specimen / Unknown 11/13/2024 12:27 AM EST 11/13/2024 12:31 AM EST Dallas Camejo MD POINT OF CARE TEST O RDERABLES Performing Organization Address [facility]/ZIP Co de Phone Number [facility] LAB See Below * (ABNORMAL) POCT Glucose, Fingerstick (11/12/2024 8:32 PM EST) POC Glucose 248(H) 65 - 99 mg/dL 11/12/2024 8:33 PM EST Blood specimen / Unknown 11/12/2024 8:32 PM EST 11/12/2024 8:33 PM EST Dallas Camejo MD POINT OF CARE TEST O RDERABLES Performing Organization Address City/[facility]/ZIP Co de Phone Number [facility] LAB See Below * [...] * PM DUAL LEAD EVAL WITH PROGRAMMING, [id number] (11/12/2024 1:15 PM EST) Date Time Interrogation Session [id number] [phone] PACEART Implantable Pulse Generator Clinical Trials Specialist [employer] PACEART Implantable Pulse Generator Model [id number] ESCOBAR PACEART Implantable Pulse Generator Serial Number [id number] PACEART Implantable Pulse Generator Type Pacemaker PACEART [...] reset 99.97 % PACEART Otf Statistic AP UNDERGROUND CONDUIT INSTALLER Percent 76.74 % PACEART Otf Statistic UNDERGROUND CONDUIT INSTALLER Percent 23.23 % PACEART Otf Statistic AP VS Percent 0.01 % PACEART Otf Statistic VS Percent 0.01 % PACEART AT/AF [place] Percent 0 % PACEART Episode Statistic Recent [...] 2.7 - 4.5 mg/dL 11/12/2024 6:01 AM [facility] Blood (Plasma/Serum) 11/12/2024 5:00 AM EST 11/12/2024 5:22 AM EST Luis Degroot MD LAB BLOOD ORDERABLES Performing Organization Address [facility] [place] [address], [place] [address] * Magnesium (11/12/2024 5:00 AM EST) Magnesium 1.8 1.6 - 2.7 mg/dL 11/12/2024 6:01 AM [facility] Blood (Plasma/Serum) 11/12/2024 5:00 AM EST 11/12/2024 5:22 AM EST Luis Degroot MD LAB BLOOD ORDERABLES Performing Organization Address [facility] [place] [address], [place] [address] * (ABNORMAL) Complete Blood Count, WITHOUT Differential (routine) (11/12/2024 5:00 AM EST) White Blood Cell Count 11.1(H) 4.0 - 11.0 Thou/uL 11/12/2024 5:47 AM [facility] Platelet Count 456(H) 150 - 450 Thou/uL 11/12/2024 5:47 AM [facility] Hemoglobin 8.1(L) 13.0 - 17.7 g/dL 11/12/2024 5:47 AM [facility] Hematocrit 26.3(L) 39.0 - 54.0 % 11/12/2024 5:47 AM [facility] Red Blood Cell Count 2.94(L) 4.50 - 6.20 Mil/uL 11/12/2024 5:47 AM [facility] MCV 90 80 - 100 fL 11/12/2024 5:47 AM [facility] MCH 27.6 27.0 - 31.0 pg 11/12/2024 5:47 AM [facility] MCHC 30.8 30.0 - 36.0 g/dL 11/12/2024 5:47 AM [facility] RDW 16.9(H) 11.5 - 14.5 % 11/12/2024 5:47 AM [facility] MPV 9.8 7.5 - 12.5 fL 11/12/2024 5:47 AM [facility] Blood Blood specimen / Unknown 11/12/2024 5:00 AM EST 11/12/2024 5:22 AM EST Luis Degroot MD [place] [address], [place] [address] * (ABNORMAL) Basic Metabolic Panel (11/12/2024 5:00 AM EST) Glucose 126(H) 65 - 99 mg/dL 11/12/2024 6:01 AM [facility] Comment:Fasting: <100 mg/dL, Non-Fasting: <200 mg/dL (ADA 2005) Blood Urea Nitrogen (BUN) 44(H) 8 - 21 mg/dL 11/12/2024 6:01 AM [facility] Creatinine 1.6(H) 0.5 - 1.3 mg/dL 11/12/2024 6:01 AM [facility] eGFR 48(L) >59 11/12/2024 6:01 AM [facility] Comment:CKD-EPI (2020) in mL /min/1.73 sq meters. Sodium 138 136 - 145 mmol/L 11/12/2024 6:01 AM [facility] Potassium 3.7 3.4 - 5.3 mmol/L 11/12/2024 6:01 AM [facility] Chloride 96(L) 98 - 107 mmol/L 11/12/2024 6:01 AM [facility] CO2 30 22 - 33 mmol/L 11/12/2024 6:01 AM [facility] Anion Gap 12 7 - 17 11/12/2024 6:01 AM [facility] Calcium 9.1 8.7 - 10.5 mg/dL 11/12/2024 6:01 AM [facility] BUN/Creatinine Ratio 28(H) 10.0 - 25.0 Ratio 11/12/2024 6:01 AM [facility] Blood (Plasma/Serum) 11/12/2024 5:00 AM EST 11/12/2024 5:22 AM EST Luis Degroot MD LAB BLOOD ORDERABLES Performing Organization Address City/[facility]/[place] [address], [place] [address] * (ABNORMAL) POCT Glucose, Fingerstick (11/12/2024 4:51 [...] CARE TEST O JOSEPH Performing Organization Address [facility] LAB See Below * (ABNORMAL) POCT Glucose, Fingerstick (11/12/2024 12:21 AM EST) POC Glucose 130(H) 65 - 99 mg/dL 11/12/2024 12:22 AM EST Blood specimen / Unknown 11/12/2024 12:21 AM EST 11/12/2024 12:22 AM EST Dallas Camejo MD POINT OF CARE TEST O [place] Performing Organization Address [facility] LAB See Below * (ABNORMAL) POCT Glucose, Fingerstick (11/11/2024 9:17 PM EST) POC Glucose 224(H) 65 - 99 mg/dL 11/11/2024 9:21 PM EST Blood specimen / Unknown 11/11/2024 9:17 PM EST 11/11/2024 9:21 PM EST Dallas Camejo MD POINT OF CARE TEST O JOSEPH Performing Organization Address [facility] LAB See Below * (ABNORMAL) POCT Glucose, Fingerstick (11/11/2024 5:06 PM EST) POC Glucose 149(H) 65 - 99 mg/dL 11/11/2024 5:37 PM EST Blood specimen / Unknown 11/11/2024 5:06 PM EST 11/11/2024 5:37 PM EST Dallas Camejo MD POINT OF CARE TEST O [place] Performing Organization Address [facility] Number [facility] LAB See Below * PM DUAL LEAD EVAL WITH PROGRAMMING, [id number] (11/11/2024 4:33 PM EST) Date Time Interrogation Session [id number] 1,358 PACEART Implantable Pulse Generator Clinical Trials Specialist [employer] PACEART Implantable Pulse Generator Model [id number] Jaime ESCOBAR PACEART Implantable Pulse Generator Serial Number [id number] PACEART Implantable Pulse Generator Type Pacemaker PACEART [...] reset 89.06 % PACEART Otf Statistic AP UNDERGROUND CONDUIT INSTALLER Percent 62.37 % PACEART Otf Statistic UNDERGROUND CONDUIT INSTALLER Percent 26.83 % PACEART Otf Statistic AP VS Percent 8.97 % PACEART Otf Statistic VS Percent 1.83 % PACEART AT/AF [place] Percent 0 % PACEART Episode Statistic Recent [...] ordered for function. Presenting rhythm: AP / UNDERGROUND CONDUIT INSTALLER @ 60 bpm. Underlying rhythm: SB @ [...] inserted atraumatically into the esophagus by the clinical care manager. With the patient in a supine [...] 2.7 - 4.5 mg/dL 11/11/2024 3:00 PM [facility] Blood (Plasma/Serum) 11/11/2024 2:00 PM EST 11/11/2024 2:19 PM EST Nnai Hollis PA-C LAB BLOOD ORDERABLES [place] [address], [place] [address] * Magnesium (11/11/2024 2:00 PM EST) Magnesium 1.8 1.6 - 2.7 mg/dL 11/11/2024 3:00 PM [facility] Blood (Plasma/Serum) 11/11/2024 2:00 PM EST 11/11/2024 2:19 PM EST Nani Hollis PA-C LAB BLOOD ORDERABLES Performing Organization Address [facility] [place] [address], [place] [address] * (ABNORMAL) Basic Metabolic Panel (11/11/2024 2:00 PM EST) Pathologist [facility] Glucose 124(H) 65 - 99 mg/dL 11/11/2024 3:00 PM [facility] Comment:Fasting: <100 mg/dL, Non-Fasting: <200 mg/dL (ADA 2005) Blood Urea Nitrogen (BUN) 49(H) 8 - 21 mg/dL 11/11/2024 3:00 PM [facility] Creatinine 1.7(H) 0.5 - 1.3 mg/dL 11/11/2024 3:00 PM [facility] eGFR 45(L) >59 11/11/2024 3:00 PM [facility] Comment:CKD-EPI (2020) in mL /min/1.73 sq meters. Sodium 139 136 - 145 mmol/L 11/11/2024 3:00 PM [facility] Potassium 3.4 3.4 - 5.3 mmol/L 11/11/2024 3:00 PM [facility] Chloride 97(L) 98 - 107 mmol/L 11/11/2024 3:00 PM [facility] CO2 30 22 - 33 mmol/L 11/11/2024 3:00 PM [facility] Anion Gap 12 7 - 17 11/11/2024 3:00 PM [facility] Calcium 9.0 8.7 - 10.5 mg/dL 11/11/2024 3:00 PM [facility] BUN/Creatinine Ratio 29(H) 10.0 - 25.0 Ratio 11/11/2024 3:00 PM [facility] Blood (Plasma/Serum) 11/11/2024 2:00 PM EST 11/11/2024 2:19 PM EST Nani Hollis PA-C [place] [address], [place] [address] * (ABNORMAL) POCT Glucose, Fingerstick (11/11/2024 11:53 AM EST) Pathologist [facility] POC Glucose 139(H) 65 - 99 mg/dL [...] POCT Glucose, Fingerstick (11/11/2024 2:35 AM EST) [facility] POC Glucose 174(H) 65 - 99 mg/dL 11/11/2024 3:47 AM EST Blood specimen / Unknown 11/11/2024 2:35 AM EST 11/11/2024 3:46 AM EST Dallas Camejo MD POINT OF CARE TEST O RDERABLES Performing Organization Address City/[facility]/ZIP Co de Phone Number [facility] LAB See Below * (ABNORMAL) proBNP, N-terminal (11/11/2024 2:00 AM EST) [facility] proBNP, N-terminal 2,964(H) <125 pg/mL 11/11/2024 3:18 AM EST [facility] Blood Plasma specimen / Unknown 11/11/2024 2:00 AM EST 11/11/2024 2:53 AM EST Nani Hollis PA-C LAB BLOOD ORDERABLES Performing Organization Address [facility] [place] [address], [place] [address] * (ABNORMAL) Complete Blood Count, WITHOUT Differential (routine) (11/11/2024 2:00 AM EST) [facility] White Blood Cell Count 13.2(H) 4.0 - 11.0 Thou/uL 11/11/2024 2:57 AM [facility] Platelet Count 460(H) 150 - 450 Thou/uL 11/11/2024 2:57 AM [facility] Hemoglobin 8.2(L) 13.0 - 17.7 g/dL 11/11/2024 2:57 AM [facility] Hematocrit 26.1(L) 39.0 - 54.0 % 11/11/2024 2:57 AM [facility] Red Blood Cell Count 2.91(L) 4.50 - 6.20 Mil/uL 11/11/2024 2:57 AM [facility] MCV 90 80 - 100 fL 11/11/2024 2:57 AM [facility] MCH 28.2 27.0 - 31.0 pg 11/11/2024 2:57 AM [facility] MCHC 31.4 30.0 - 36.0 g/dL 11/11/2024 2:57 AM [facility] RDW 17.0(H) 11.5 - 14.5 % 11/11/2024 2:57 AM [facility] MPV 9.8 7.5 - 12.5 fL 11/11/2024 2:57 AM [facility] Blood Blood specimen / Unknown 11/11/2024 2:00 AM EST 11/11/2024 2:53 AM EST Nani PATTON-C [place] [address], [place] [address] * (ABNORMAL) Phosphorus (11/11/2024 2:00 AM EST) Phosphorus 4.7(H) 2.7 - 4.5 mg/dL 11/11/2024 3:18 AM [facility] Blood (Plasma/Serum) 11/11/2024 2:00 AM EST 11/11/2024 2:53 AM EST Nani PATTON-C [place] [address], [place] [address] * Magnesium (11/11/2024 2:00 AM EST) Magnesium 2.0 1.6 - 2.7 mg/dL 11/11/2024 3:18 AM [facility] Blood (Plasma/Serum) 11/11/2024 2:00 AM EST 11/11/2024 2:53 AM EST Nani Hollis PA-C LAB BLOOD ORDERABLES Performing Organization Address [facility]/State/ZIP Co de Phone Number [facility] [address] [place] [address], [place] [address] * (ABNORMAL) Basic Metabolic Panel (11/11/2024 2:00 AM EST) Glucose 151(H) 65 - 99 mg/dL 11/11/2024 3:18 AM [facility] Comment:Fasting: <100 mg/dL, Non-Fasting: <200 mg/dL (ADA 2004) Blood Urea Nitrogen (BUN) 56(H) 8 - 21 mg/dL 11/11/2024 3:18 AM [facility] Creatinine 2.0(H) 0.5 - 1.3 mg/dL 11/11/2024 3:18 AM [facility] eGFR 37(L) >59 11/11/2024 3:18 AM [facility] Comment:CKD-EPI (2020) in mL /min/1.73 sq meters. Sodium 137 136 - 145 mmol/L 11/11/2024 3:18 AM [facility] Potassium 3.8 3.4 - 5.3 mmol/L 11/11/2024 3:18 AM [facility] Chloride 99 98 - 107 mmol/L 11/11/2024 3:18 AM [facility] CO2 27 22 - 33 mmol/L 11/11/2024 3:18 AM [facility] Anion Gap 11 7 - 17 11/11/2024 3:18 AM [facility] Calcium 8.7 8.7 - 10.5 mg/dL 11/11/2024 3:18 AM [facility] BUN/Creatinine Ratio 28(H) 10.0 - 25.0 Ratio 11/11/2024 3:18 AM [facility] Blood (Plasma/Serum) 11/11/2024 2:00 AM EST 11/11/2024 2:53 AM EST Nani Rodham PA-C LAB BLOOD ORDERABLES [address] [address], [address] [address] * (ABNORMAL) Hepatic Function Panel (Routine) (11/11/2024 2:00 AM EST) Alkaline Phosphatase 207(H) 45 - 128 U/L 11/11/2024 3:18 AM [facility] Aspartate Aminotrans (AST) 24 10 - 55 U/L 11/11/2024 3:18 AM [facility] Alanine Aminotrans (ALT) 14 10 - 55 U/L 11/11/2024 3:18 AM [facility] Bilirubin, Total 0.2 0.2 - 1.0 mg/dL 11/11/2024 3:18 AM [facility] Protein, Total 6.4 6.3 - 8.3 g/dL 11/11/2024 3:18 AM [facility] Albumin 2.6(L) 3.4 - 4.8 g/dL 11/11/2024 3:18 AM [facility] Bilirubin, Direct 0.1 0 - 0.2 mg/dL 11/11/2024 3:18 AM [facility] Globulin 3.8 1.5 - 3.9 g/dL 11/11/2024 3:18 AM [facility] Albumin/Globulin Ratio 0.7(L) 1.0 - 3.0 Ratio 11/11/2024 3:18 AM [facility] Blood (Plasma/Serum) 11/11/2024 2:00 AM EST 11/11/2024 2:53 AM EST Nani Hollis PA-C LAB BLOOD ORDERABLES [address] [address], [address] [address] * Creatine Kinase (CK) (11/11/2024 2:00 AM EST) Creatine Kinase (CK) 37 24 - 204 U/L 11/11/2024 3:18 AM [facility] Blood (Plasma/Serum) 11/11/2024 2:00 AM EST 11/11/2024 2:53 AM EST Nani Hollis PA-C LAB BLOOD ORDERABLES [address] [address], [address] [address] * (ABNORMAL) POCT Glucose, Fingerstick (11/10/2024 7:55 [...] * (ABNORMAL) Phosphorus (11/10/2024 12:03 PM EST) [facility] Phosphorus 5.2(H) 2.7 - 4.5 mg/dL 11/10/2024 1:06 PM EST [facility] Blood (Plasma/Serum) 11/10/2024 12:03 PM EST 11/10/2024 12:27 PM EST Nani Hollis PA-C LAB BLOOD ORDERABLES Performing Organization Address [facility] [place] [address], [place] [address] * Magnesium (11/10/2024 12:03 PM EST) Pathologist [facility] Magnesium 2.0 1.6 - 2.7 mg/dL 11/10/2024 1:06 PM EST [facility] Blood (Plasma/Serum) 11/10/2024 12:03 PM EST 11/10/2024 12:27 PM EST Nani Hollis PA-C LAB BLOOD ORDERABLES Performing Organization Address [facility] [place] [address], [place] [address] * (ABNORMAL) Basic Metabolic Panel (11/10/2024 12:03 PM EST) Pathologist [facility] Glucose 135(H) 65 - 99 mg/dL 11/10/2024 1:06 PM [facility] Comment:Fasting: <100 mg/dL, Non-Fasting: <200 mg/dL (ADA 2004) Blood Urea Nitrogen (BUN) 57(H) 8 - 21 mg/dL 11/10/2024 1:06 PM [facility] Creatinine 1.9(H) 0.5 - 1.3 mg/dL 11/10/2024 1:06 PM [facility] eGFR 39(L) >59 11/10/2024 1:06 PM [facility] Comment:CKD-EPI (2020) in mL /min/1.73 sq meters. Sodium 137 136 - 145 mmol/L 11/10/2024 1:06 PM [facility] Potassium 3.8 3.4 - 5.3 mmol/L 11/10/2024 1:06 PM [facility] Chloride 101 98 - 107 mmol/L 11/10/2024 1:06 PM [facility] CO2 25 22 - 33 mmol/L 11/10/2024 1:06 PM [facility] Anion Gap 11 7 - 17 11/10/2024 1:06 PM [facility] Calcium 8.5(L) 8.7 - 10.5 mg/dL 11/10/2024 1:06 PM [facility] BUN/Creatinine Ratio 30(H) 10.0 - 25.0 Ratio 11/10/2024 1:06 PM [facility] Blood (Plasma/Serum) 11/10/2024 12:03 PM EST 11/10/2024 12:27 PM EST Nani Hollis PA-C LAB BLOOD ORDERABLES [address] [address], [address] [address] * (ABNORMAL) POCT Glucose, Fingerstick (11/10/2024 11:36 AM EST) POC Glucose 143(H) 65 - 99 mg/dL 11/10/2024 11:36 AM EST Blood specimen / Unknown 11/10/2024 11:36 AM EST 11/10/2024 11:37 AM EST Dallas Camejo MD POINT OF CARE TEST O RDERABLES Performing Organization Address City/[facility]/ZIP Co de Phone Number [facility] LAB See Below * (ABNORMAL) POCT Glucose, Fingerstick (11/10/2024 7:42 AM EST) POC Glucose 134(H) 65 - 99 mg/dL 11/10/2024 7:43 AM EST Blood specimen / Unknown 11/10/2024 7:42 AM EST 11/10/2024 7:43 AM EST Dallas Camejo MD POINT OF CARE TEST O RDERABLES Performing Organization Address [facility] de Phone Number [facility] LAB See Below * (ABNORMAL) POCT Glucose, Fingerstick (11/10/2024 2:02 AM EST) POC Glucose 126(H) 65 - 99 mg/dL 11/10/2024 2:03 AM EST Blood specimen / Unknown 11/10/2024 2:02 AM EST 11/10/2024 2:03 AM EST Dallas Camejo MD POINT OF CARE TEST O RDERABLES Performing Organization Address [facility] Co de Phone Number [facility] LAB See Below * (ABNORMAL) Phosphorus (11/10/2024 12:04 AM EST) Phosphorus 5.6(H) 2.7 - 4.5 mg/dL 11/10/2024 1:09 AM EST [facility] Blood (Plasma/Serum) 11/10/2024 12:04 AM EST 11/10/2024 12:33 AM EST Claire Garibay PA-C LAB BLOOD ORDERABLES Performing Organization Address [facility] [place] [address], [address] [address] * Magnesium (11/10/2024 12:04 AM EST) Magnesium 2.1 1.6 - 2.7 mg/dL 11/10/2024 1:09 AM [facility] Blood (Plasma/Serum) 11/10/2024 12:04 AM EST 11/10/2024 12:33 AM EST Claire Garibay PA-C [place] [address], [place] [address] * (ABNORMAL) Basic Metabolic Panel (11/10/2024 12:04 AM EST) Glucose 122(H) 65 - 99 mg/dL 11/10/2024 1:09 AM [facility] Comment:Fasting: <100 mg/dL, Non-Fasting: <200 mg/dL (ADA 2005) Blood Urea Nitrogen (BUN) 56(H) 8 - 21 mg/dL 11/10/2024 1:09 AM [facility] Creatinine 2.0(H) 0.5 - 1.3 mg/dL 11/10/2024 1:09 AM [facility] eGFR 37(L) >59 11/10/2024 1:09 AM [facility] Comment:CKD-EPI (2020) in mL /min/1.73 sq meters. Sodium 135(L) 136 - 145 mmol/L 11/10/2024 1:09 AM [facility] Potassium 3.8 3.4 - 5.3 mmol/L 11/10/2024 1:09 AM [facility] Chloride 100 98 - 107 mmol/L 11/10/2024 1:09 AM [facility] CO2 24 22 - 33 mmol/L 11/10/2024 1:09 AM [facility] Anion Gap 11 7 - 17 11/10/2024 1:09 AM [facility] Calcium 8.2(L) 8.7 - 10.5 mg/dL 11/10/2024 1:09 AM [facility] BUN/Creatinine Ratio 28(H) 10.0 - 25.0 Ratio 11/10/2024 1:09 AM [facility] Blood (Plasma/Serum) 11/10/2024 12:04 AM EST 11/10/2024 12:33 AM EST Claire Garibay PA-C LAB BLOOD ORDERABLES Performing Organization Address City/[facility]/ZIP Co de Phone Number [address] [address], [address] [address] * (ABNORMAL) COMPLETE BLOOD COUNT, WITHOUT DIFFERENTIAL (11/10/2024 12:04 AM EST) White Blood Cell Count 13.5(H) 4.0 - 11.0 Thou/uL 11/10/2024 12:47 AM [facility] Platelet Count 445 150 - 450 Thou/uL 11/10/2024 12:47 AM [facility] Hemoglobin 7.6(L) 13.0 - 17.7 g/dL 11/10/2024 12:47 AM [facility] Hematocrit 25.2(L) 39.0 - 54.0 % 11/10/2024 12:47 AM [facility] Red Blood Cell Count 2.75(L) 4.50 - 6.20 Mil/uL 11/10/2024 12:47 AM [facility] MCV 92 80 - 100 fL 11/10/2024 12:47 AM [facility] MCH 27.6 27.0 - 31.0 pg 11/10/2024 12:47 AM [facility] MCHC 30.2 30.0 - 36.0 g/dL 11/10/2024 12:47 AM [facility] RDW 17.2(H) 11.5 - 14.5 % 11/10/2024 12:47 AM [facility] MPV 9.7 7.5 - 12.5 fL 11/10/2024 12:47 AM [facility] Blood Blood specimen / Unknown 11/10/2024 12:04 AM EST 11/10/2024 12:33 AM EST Claire Garibay PA-C LAB BLOOD ORDERABLES [address] [address], [address] [address] * (ABNORMAL) POCT Glucose, Fingerstick (11/09/2024 8:03 PM EST) POC Glucose 152(H) 65 - 99 mg/dL 11/09/2024 8:04 PM EST Blood specimen / Unknown 11/09/2024 8:03 PM EST 11/09/2024 8:04 PM EST Dallas Camejo MD POINT OF CARE TEST O RDERALUCILLE Performing Organization Address [facility] Number [facility] LAB See Below * (ABNORMAL) POCT Glucose, Fingerstick (11/09/2024 3:53 PM EST) POC Glucose 222(H) 65 - 99 mg/dL 11/09/2024 8:04 PM EST Blood specimen / Unknown 11/09/2024 3:53 PM EST 11/09/2024 8:04 PM EST Dallas Camejo MD POINT OF CARE TEST O RDERALUCILLE Performing Organization Address [facility] Number [facility] LAB See Below * (ABNORMAL) POCT Glucose, Fingerstick (11/09/2024 11:47 AM EST) POC Glucose 146(H) 65 - 99 mg/dL 11/09/2024 11:53 AM EST Blood specimen / Unknown 11/09/2024 11:47 AM EST 11/09/2024 11:53 AM EST Dallas Camejo MD POINT OF CARE TEST O RDERALUCILLE Performing Organization Address [facility] Number [facility] LAB See Below * (ABNORMAL) proBNP, N-terminal (11/09/2024 10:04 AM EST) proBNP, N-terminal 4,654(H) <125 pg/mL 11/09/2024 12:58 PM EST [facility] Plasma specimen / Unknown 11/09/2024 10:04 AM EST 11/09/2024 10:25 AM EST Claire Garibay PA-C LAB BLOOD ORDERABLES Performing Organization Address [facility]/State/[facility] Co de Phone Number [facility] [address] [place] [address], [facility] [address] [place] [address] * (ABNORMAL) Procalcitonin (11/09/2024 10:04 AM EST) Procalcitonin 0.40(H) <0.09 ng/mL 11/09/2024 11:01 AM EST [facility] Comment: (NOTE) ?Procalcitonin (PCT) Guided Antibiotic [...] PA-C LAB BLOOD ORDERABLES Performing Organization Address [facility] [place] [address], [place] [address] * (ABNORMAL) POCT Glucose, Fingerstick (11/09/2024 7:29 AM EST) Pathologist [facility] POC Glucose 153(H) 65 - 99 mg/dL 11/09/2024 7:33 AM EST Blood specimen / Unknown 11/09/2024 7:29 AM EST 11/09/2024 7:33 AM EST Dallas Camejo MD POINT OF CARE TEST O RDERABLES Performing Organization Address [facility] Co de Phone Number HOSPITAL LAB See Below * (ABNORMAL) Phosphorus (11/09/2024 1:50 AM EST) Phosphorus 5.2(H) 2.7 - 4.5 mg/dL 11/09/2024 2:56 AM EST [facility] Blood (Plasma/Serum) 11/09/2024 1:50 AM EST 11/09/2024 2:31 AM EST Shay Martin MD LAB BLOOD ORDERAB LES Performing Organization Address City/[facility] [place] [address], [place] [address] * Magnesium (11/09/2024 1:50 AM EST) Magnesium 2.3 1.6 - 2.7 mg/dL 11/09/2024 2:56 AM [facility] Blood (Plasma/Serum) 11/09/2024 1:50 AM EST 11/09/2024 2:31 AM EST Shay Martin MD LAB BLOOD ORDERAB LES Performing Organization Address [facility] [place] [address], [place] [address] * (ABNORMAL) COMPLETE BLOOD COUNT, WITHOUT DIFFERENTIAL (11/09/2024 1:50 AM EST) White Blood Cell Count 11.9(H) 4.0 - 11.0 Thou/uL 11/09/2024 2:36 AM [facility] Platelet Count 405 150 - 450 Thou/uL 11/09/2024 2:36 AM [facility] Hemoglobin 7.7(L) 13.0 - 17.7 g/dL 11/09/2024 2:36 AM [facility] Hematocrit 24.9(L) 39.0 - 54.0 % 11/09/2024 2:36 AM [facility] Red Blood Cell Count 2.72(L) 4.50 - 6.20 Mil/uL 11/09/2024 2:36 AM [facility] MCV 92 80 - 100 fL 11/09/2024 2:36 AM [facility] MCH 28.3 27.0 - 31.0 pg 11/09/2024 2:36 AM [facility] MCHC 30.9 30.0 - 36.0 g/dL 11/09/2024 2:36 AM [facility] RDW 17.1(H) 11.5 - 14.5 % 11/09/2024 2:36 AM [facility] MPV 9.6 7.5 - 12.5 fL 11/09/2024 2:36 AM [facility] Blood Blood specimen / Unknown 11/09/2024 1:50 AM EST 11/09/2024 2:31 AM EST Shay Martin MD [place] [address], [place] [address] * (ABNORMAL) Basic Metabolic Panel (11/09/2024 1:50 AM EST) Glucose 117(H) 65 - 99 mg/dL 11/09/2024 2:56 AM [facility] Comment:Fasting: <100 mg/dL, Non-Fasting: <200 mg/dL (ADA 2004) Blood Urea Nitrogen (BUN) 46(H) 8 - 21 mg/dL 11/09/2024 2:56 AM [facility] Creatinine 1.8(H) 0.5 - 1.3 mg/dL 11/09/2024 2:56 AM [facility] eGFR 42(L) >59 11/09/2024 2:56 AM [facility] Comment:CKD-EPI (2020) in mL /min/1.73 sq meters. Sodium 139 136 - 145 mmol/L 11/09/2024 2:56 AM [facility] Potassium 3.6 3.4 - 5.3 mmol/L 11/09/2024 2:56 AM [facility] Chloride 101 98 - 107 mmol/L 11/09/2024 2:56 AM [facility] CO2 25 22 - 33 mmol/L 11/09/2024 2:56 AM [facility] Anion Gap 13 7 - 17 11/09/2024 2:56 AM [facility] Calcium 8.2(L) 8.7 - 10.5 mg/dL 11/09/2024 2:56 AM EST [facility] BUN/Creatinine Ratio 26(H) 10.0 - 25.0 Ratio 11/09/2024 2:56 AM EST [facility] Blood (Plasma/Serum) 11/09/2024 1:50 AM EST 11/09/2024 2:31 AM EST Shay Martin MD LAB BLOOD ORDERAB LES Performing Organization Address City/[facility]/[place]IP [place] [address], [place] [address] * (ABNORMAL) POCT Glucose, Fingerstick (11/09/2024 1:41 AM EST) POC Glucose 124(H) 65 - 99 mg/dL 11/09/2024 1:42 AM EST Blood specimen / Unknown 11/09/2024 1:41 AM EST 11/09/2024 1:42 AM EST Dallas Camejo MD POINT [facility] C[facility] TEST [facility] See Below * [...] to verify the correct patient, procedure, equipment, administrative support technician and site/side marked as required. [...] 7.33 - 7.43 11/08/2024 6:00 PM EST [facility] Venous pCO2 49 35 - 50 mmHG 11/08/2024 6:00 PM [facility] Venous pO2 45 0 - 60 mmHG 11/08/2024 6:00 PM [facility] Venous Total CO2 28 23 - 29 mmol/L 11/08/2024 6:00 PM [facility] Respiratory Info NASAL 6 L/MIN 11/08/2024 5:29 PM EST Base Excess 0.9 mmol/L 11/08/2024 6:00 PM [facility] Comment:Reference Range: Neg ative 2 to Positive 3 Blood Blood specimen / Unknown 11/08/2024 5:46 PM EST 11/08/2024 5:55 PM EST Eunice Garrison APRN [place] [address], [place] [address] * (ABNORMAL) Phosphorus (Routine) (11/08/2024 5:46 PM EST) [facility] Phosphorus 4.9(H) 2.7 - 4.5 mg/dL 11/08/2024 7:23 PM [facility] Blood (Plasma/Serum) 11/08/2024 5:46 PM EST 11/08/2024 6:51 PM EST Eunice [email or web address] WORK[employer] [place] [address], [place] [address] * Magnesium (Routine) (11/08/2024 5:46 PM EST) Pathologist [facility] Magnesium 1.9 1.6 - 2.7 mg/dL 11/08/2024 7:23 PM [facility] Blood (Plasma/Serum) 11/08/2024 5:46 PM EST 11/08/2024 6:51 PM EST Eunice Garrison [employer] [employer] LAB BLOOD ORDERA BLES [address] [address], [address] [address] * (ABNORMAL) Basic Metabolic Panel (Routine) (11/08/2024 5:46 PM EST) Glucose 134(H) 65 - 99 mg/dL 11/08/2024 7:23 PM [facility] Comment:Fasting: <100 mg/dL, Non-Fasting: <200 mg/dL (ADA 2004) Blood Urea Nitrogen (BUN) 45(H) 8 - 21 mg/dL 11/08/2024 7:23 PM [facility] Creatinine 1.7(H) 0.5 - 1.3 mg/dL 11/08/2024 7:23 PM [facility] eGFR 45(L) >59 11/08/2024 7:23 PM [facility] Comment:CKD-EPI (2020) in mL /min/1.73 sq meters. Sodium 141 136 - 145 mmol/L 11/08/2024 7:23 PM [facility] Potassium 3.3(L) 3.4 - 5.3 mmol/L 11/08/2024 7:23 PM [facility] Chloride 102 98 - 107 mmol/L 11/08/2024 7:23 PM [facility] CO2 26 22 - 33 mmol/L 11/08/2024 7:23 PM [facility] Anion Gap 13 7 - 17 11/08/2024 7:23 PM [facility] Calcium 8.6(L) 8.7 - 10.5 mg/dL 11/08/2024 7:23 PM [facility] BUN/Creatinine Ratio 26(H) 10.0 - 25.0 Ratio 11/08/2024 7:23 PM [facility] Blood (Plasma/Serum) 11/08/2024 5:46 PM EST 11/08/2024 6:51 PM EST Eunice Garrison [employer] LAB BLOOD ORDERA BLES [address] [address], [address] [address] * XR Chest 1 view-Portable (STAT) (11/08/2024 [...] prior study. Interpreted by: ??Bashir Barrientos MD Tube Heater I personally reviewed the images and the [...] prior study. Interpreted by: Bashir Barrientos MD Tube Heater I personally reviewed the images and the [...] T (Once) (11/08/2024 12:05 AM EST) Pathologist [facility] High Sensitivity Troponin T 26(H) <23 ng/L 11/08/2024 12:39 AM EST [facility] Delta (Change) NO CHANGE <3 11/08/2024 12:39 AM EST [facility] Blood (Plasma/Serum) 11/08/2024 12:05 AM EST 11/08/2024 12:16 AM EST Kayla [facility] [place] [address], [address] [address] * Creatine Kinase (CK) (11/08/2024 12:05 AM EST) [facility] Creatine Kinase (CK) 91 24 - 204 U/L 11/08/2024 12:39 AM EST [facility] Blood (Plasma/Serum) 11/08/2024 12:05 AM EST 11/08/2024 12:16 AM EST Kayla Orona [facility] [place] [address], [place] [address] * (ABNORMAL) proBNP, N-terminal (11/08/2024 12:05 AM EST) proBNP, N-terminal 4,241(H) <125 pg/mL 11/08/2024 12:39 AM [facility] Blood Plasma specimen / Unknown 11/08/2024 12:05 AM EST 11/08/2024 12:16 AM EST Kayla Orona [facility] [place] [address], [place] [address] * (ABNORMAL) HEPATIC FUNCTION PANEL (11/08/2024 12:05 AM EST) Alkaline Phosphatase 226(H) 45 - 128 U/L 11/08/2024 12:39 AM [facility] Aspartate Aminotrans (AST) 24 10 - 55 U/L 11/08/2024 12:39 AM [facility] Alanine Aminotrans (ALT) 24 10 - 55 U/L 11/08/2024 12:39 AM [facility] Bilirubin, Total <0.2(L) 0.2 - 1.0 mg/dL 11/08/2024 12:39 AM [facility] Protein, Total 5.5(L) 6.3 - 8.3 g/dL 11/08/2024 12:39 AM [facility] Albumin 2.3(L) 3.4 - 4.8 g/dL 11/08/2024 12:39 AM [facility] Bilirubin, Direct 0.1 0 - 0.2 mg/dL 11/08/2024 12:39 AM [facility] Globulin 3.2 1.5 - 3.9 g/dL 11/08/2024 12:39 AM [facility] Albumin/Globulin Ratio 0.7(L) 1.0 - 3.0 Ratio 11/08/2024 12:39 AM [facility] Blood (Plasma/Serum) 11/08/2024 12:05 AM EST 11/08/2024 12:16 AM EST Kayla Orona APRN LAB BLOOD ORDERABLES Performing Organization Address City/[facility]/ZIP Co de Phone Number [address] [address], [address] [address] * (ABNORMAL) COMPLETE BLOOD COUNT, WITHOUT DIFFERENTIAL (11/08/2024 12:05 AM EST) White Blood Cell Count 13.1(H) 4.0 - 11.0 Thou/uL 11/08/2024 12:22 AM [facility] Platelet Count 378 150 - 450 Thou/uL 11/08/2024 12:22 AM [facility] Hemoglobin 7.9(L) 13.0 - 17.7 g/dL 11/08/2024 12:22 AM [facility] Hematocrit 25.6(L) 39.0 - 54.0 % 11/08/2024 12:22 AM [facility] Red Blood Cell Count 2.83(L) 4.50 - 6.20 Mil/uL 11/08/2024 12:22 AM [facility] MCV 91 80 - 100 fL 11/08/2024 12:22 AM [facility] MCH 27.9 27.0 - 31.0 pg 11/08/2024 12:22 AM [facility] MCHC 30.9 30.0 - 36.0 g/dL 11/08/2024 12:22 AM [facility] RDW 16.9(H) 11.5 - 14.5 % 11/08/2024 12:22 AM [facility] MPV 9.3 7.5 - 12.5 fL 11/08/2024 12:22 AM [facility] Blood Blood specimen / Unknown 11/08/2024 12:05 AM EST 11/08/2024 12:16 AM EST Kayla Orona APRN [place] [address], [place] [address] * (ABNORMAL) Phosphorus (11/08/2024 12:05 AM EST) Phosphorus 5.2(H) 2.7 - 4.5 mg/dL 11/08/2024 12:39 AM [facility] Blood (Plasma/Serum) 11/08/2024 12:05 AM EST 11/08/2024 12:16 AM EST [facility] LAB BLOOD ORDERABLES Performing Organization Address City/[facility]/[place] [address], [place] [address] * Magnesium (11/08/2024 12:05 AM EST) Magnesium 2.0 1.6 - 2.7 mg/dL 11/08/2024 12:39 AM [facility] Blood (Plasma/Serum) 11/08/2024 12:05 AM EST 11/08/2024 12:16 AM EST [facility] LAB BLOOD ORDERABLES Performing Organization Address City/[facility]/[place] [address], [place] [address] * (ABNORMAL) Basic Metabolic Panel (11/08/2024 12:05 AM EST) Glucose 231(H) 65 - 99 mg/dL 11/08/2024 12:39 AM [facility] Comment:Fasting: <100 mg/dL, Non-Fasting: <200 mg/dL (ADA 2005) Blood Urea Nitrogen (BUN) 48(H) 8 - 21 mg/dL 11/08/2024 12:39 AM [facility] Creatinine 1.6(H) 0.5 - 1.3 mg/dL 11/08/2024 12:39 AM [facility] eGFR 48(L) >59 11/08/2024 12:39 AM [facility] Comment:CKD-EPI (2020) in mL /min/1.73 sq meters. Sodium 133(L) 136 - 145 mmol/L 11/08/2024 12:39 AM [facility] Potassium 3.8 3.4 - 5.3 mmol/L 11/08/2024 12:39 AM [facility] Chloride 98 98 - 107 mmol/L 11/08/2024 12:39 AM [facility] CO2 21(L) 22 - 33 mmol/L 11/08/2024 12:39 AM [facility] Anion Gap 14 7 - 17 11/08/2024 12:39 AM [facility] Calcium 7.9(L) 8.7 - 10.5 mg/dL 11/08/2024 12:39 AM [facility] BUN/Creatinine Ratio 30(H) 10.0 - 25.0 Ratio 11/08/2024 12:39 AM [facility] Blood (Plasma/Serum) 11/08/2024 12:05 AM EST 11/08/2024 12:16 AM EST Kayla Orona APRN [place] [address], [place] [address] * (ABNORMAL) POCT Glucose, Fingerstick (11/07/2024 7:47 PM EST) Pathologist [facility] POC Glucose 261(H) 65 - 99 mg/dL 11/07/2024 7:53 PM EST Blood specimen / Unknown 11/07/2024 7:47 PM EST 11/07/2024 7:53 PM EST Dallas Camejo MD POINT OF CARE TEST O RDERABLES HOSPITAL LAB See Below * Respiratory PCR Panel (11/07/2024 6:30 PM EST) Adenovirus Not Detected Not Detected 11/08/2024 12:23 AM EST [facility] Coronavirus 229E Not Detected [...] Orona APRN MICROBIOLOGY - GENER AL ORDERABLES [facility] [address] [place] [address], * (ABNORMAL) High Sensitivity Troponin T (Once) (11/07/2024 4:12 PM EST) High Sensitivity Troponin T 29(H) <23 ng/L 11/07/2024 5:28 PM EST [facility] Delta (Change) 3(H) <3 11/07/2024 5:28 PM EST [facility] Comment:Increased Blood (Plasma/Serum) 11/07/2024 4:12 PM EST 11/07/2024 5:01 PM EST Kayla Orona [employer] LAB BLOOD ORDERABLES Performing Organization Address City/[facility]/[place] [address], [place] [address] * (ABNORMAL) Phosphorus (11/07/2024 4:12 PM EST) Phosphorus 4.7(H) 2.7 - 4.5 mg/dL 11/07/2024 5:28 PM [facility] Blood (Plasma/Serum) 11/07/2024 4:12 PM EST 11/07/2024 5:01 PM EST Kayla Orona [employer] [place] [address], [place] [address] * Magnesium (11/07/2024 4:12 PM EST) Magnesium 2.2 1.6 - 2.7 mg/dL 11/07/2024 5:28 PM [facility] Blood (Plasma/Serum) 11/07/2024 4:12 PM EST 11/07/2024 5:01 PM EST Kayla Orona APRN LAB BLOOD ORDERABLES [facility] [address] [place] [address], [address] [address] * (ABNORMAL) Basic Metabolic Panel (11/07/2024 4:12 PM EST) Glucose 183(H) 65 - 99 mg/dL 11/07/2024 5:28 PM [facility] Comment:Fasting: <100 mg/dL, Non-Fasting: <200 mg/dL (ADA 2004) Blood Urea Nitrogen (BUN) 47(H) 8 - 21 mg/dL 11/07/2024 5:28 PM [facility] Creatinine 1.6(H) 0.5 - 1.3 mg/dL 11/07/2024 5:28 PM [facility] eGFR 48(L) >59 11/07/2024 5:28 PM [facility] Comment:CKD-EPI (2020) in mL /min/1.73 sq meters. Sodium 131(L) 136 - 145 mmol/L 11/07/2024 5:28 PM [facility] Potassium 3.7 3.4 - 5.3 mmol/L 11/07/2024 5:28 PM [facility] Chloride 98 98 - 107 mmol/L 11/07/2024 5:28 PM [facility] CO2 21(L) 22 - 33 mmol/L 11/07/2024 5:28 PM [facility] Anion Gap 12 7 - 17 11/07/2024 5:28 PM [facility] Calcium 8.1(L) 8.7 - 10.5 mg/dL 11/07/2024 5:28 PM [facility] BUN/Creatinine Ratio 29(H) 10.0 - 25.0 Ratio 11/07/2024 5:28 PM [facility] Blood (Plasma/Serum) 11/07/2024 4:12 PM EST 11/07/2024 5:01 PM EST Kayla Orona APRN LAB BLOOD ORDERABLES [address] [address], [address] [address] * (ABNORMAL) POCT Glucose, Fingerstick (11/07/2024 3:53 PM EST) POC Glucose 179(H) 65 - 99 mg/dL 11/07/2024 3:58 PM EST Blood specimen / Unknown 11/07/2024 3:53 PM EST 11/07/2024 3:58 PM EST Dallas Camejo MD POINT OF CARE TEST O RDERABLES Performing Organization Address [facility] Co de Phone Number HOSPITAL LAB See Below * ECG 12 lead (11/07/2024 2:58 PM EST) Systolic BP 116 mmHg EKG [facility] Diastolic BP 57 mmHg EKG [facility] Ventricular rate 62 BPM EKG [facility] Atrial rate 55 BPM EKG [facility] QRS duration 168 ms EKG [facility] Q-T interval 506 ms EKG [facility] QTC calculation (Bazett) 513 ms EKG [facility] R axis 104 degrees EKG [facility] T axis -39 degrees EKG [facility] 11/07/2024 2:58 PM EST Narrative EKG [facility] - 11/07/2024 6:25 PM EST Ventricular-paced [...] PM Dallas Camejo MD ECG ORDERABLES EKG [facility] * BLOOD CULTURE Peripheral (11/07/2024 1:02 PM EST) Culture Sterile after 5 days 11/12/2024 7:50 AM [facility] Microbiology Peripheral blood specimen / Unknown 11/07/2024 1:02 PM EST 11/07/2024 1:23 PM EST Chris Taylor MD LAB AMB MICRO ORDERA BLES Performing Organization Address City/[facility]/ZIP Co de Phone Number [facility] [address] [place] [address], * BLOOD CULTURE Peripheral (11/07/2024 12:57 PM EST) Culture Sterile after 5 days 11/12/2024 7:50 AM [facility] Microbiology Peripheral blood specimen / Unknown 11/07/2024 12:57 PM EST 11/07/2024 1:49 PM EST Chris Taylor MD LAB AMB MICRO ORDERA BLES Performing Organization Address [facility] Co de Phone Number [facility] [address] [place] [address], * (ABNORMAL) Blood Gas, Arterial (STAT) (11/07/2024 12:36 PM EST) pH, Arterial 7.38 7.35 - 7.45 11/07/2024 1:02 PM [facility] pCO2, Arterial 36 32 - 45 mmHG 11/07/2024 1:02 PM [facility] pO2, Arterial 119(H) 75 - 95 mmHG 11/07/2024 1:02 PM [facility] CO2, Total 22 22 - 28 mmol/L 11/07/2024 1:02 PM [facility] Respiratory Info OTHER 11/07/19 25 12:36 PM EST Base Deficiency 3.5 mmol/L 1:02 PM [facility] Comment:Reference Range: Neg ative 2 to Positive 3 Blood Blood specimen / Unknown 11/07/2024 12:36 PM EST 11/07/2024 12:50 PM EST Kayla Orona APRN LAB BLOOD ORDERABLES [address] [address], [address] [address] * (ABNORMAL) POCT Glucose, Fingerstick (11/07/2024 12:29 [...] to prior. Interpreted by: ??Roberto Tolbert MD Tube Heater I personally reviewed the images and the [...] thickening compared to prior. Interpreted by: Roberto Tolbret MD Tube Heater I personally reviewed the images and the resident's preliminary report and AGREE with the report as it is now presented ([id number]). Juaquin Kern MD IMG DIAGNOSTIC SOCORRO GING ORDERABLES * (ABNORMAL) High Sensitivity Troponin T (11/07/2024 8:13 AM EST) High Sensitivity Troponin T 26(H) <23 ng/L 11/07/2024 12:53 PM EST [facility] Delta (Change) NO PREVIOUS RESULT <3 11/07/2024 12:53 PM EST [facility] Plasma/Serum 11/07/2024 8:13 AM EST 11/07/2024 8:49 AM EST Juaquin Kern MD LAB BLOOD ORDERABL ES Performing Organization Address [facility]/[place] [address], [place] [address] * (ABNORMAL) proBNP, N-terminal (11/07/2024 8:13 AM EST) proBNP, N-terminal 3,427(H) <125 pg/mL 11/07/2024 10:25 AM EST [facility] Plasma specimen / Unknown 11/07/2024 8:13 AM EST 11/07/2024 8:49 AM EST Juaquin Kern MD LAB BLOOD ORDERABL ES Performing Organization Address City/[facility]/[place] [address], [place] [address] * (ABNORMAL) Complete Blood Count, WITHOUT Differential (routine) (11/07/2024 8:13 AM EST) White Blood Cell Count 12.4(H) 4.0 - 11.0 Thou/uL 11/07/2024 9:05 AM [facility] Platelet Count 430 150 - 450 Thou/uL 11/07/2024 9:05 AM [facility] Hemoglobin 8.9(L) 13.0 - 17.7 g/dL 11/07/2024 9:05 AM [facility] Hematocrit 28.9(L) 39.0 - 54.0 % 11/07/2024 9:05 AM [facility] Red Blood Cell Count 3.16(L) 4.50 - 6.20 Mil/uL 11/07/2024 9:05 AM [facility] MCV 92 80 - 100 fL 11/07/2024 9:05 AM [facility] MCH 28.2 27.0 - 31.0 pg 11/07/2024 9:05 AM [facility] MCHC 30.8 30.0 - 36.0 g/dL 11/07/2024 9:05 AM [facility] RDW 16.7(H) 11.5 - 14.5 % 11/07/2024 9:05 AM [facility] MPV 9.6 7.5 - 12.5 fL 11/07/2024 9:05 AM [facility] nRBC 0.2(H) 0.0 - 0.1 /100 WBC 11/07/2024 9:05 AM [facility] nRBC, Absolute 0.03(H) 0.00 - 0.02 Thou/uL 11/07/2024 9:05 AM [facility] Blood Blood specimen / Unknown 11/07/2024 8:13 AM EST 11/07/2024 8:49 AM EST Juaquin Kern MD [place] [address], [place] [address] * MAGNESIUM (11/07/2024 8:13 AM EST) Magnesium 2.3 1.6 - 2.7 mg/dL 11/07/2024 9:26 AM [facility] Blood (Plasma/Serum) 11/07/2024 8:13 AM EST 11/07/2024 8:49 AM EST Juaquin Kern MD [place] [address], [place] [address] * PHOSPHORUS (11/07/2024 8:13 AM EST) Phosphorus 4.3 2.7 - 4.5 mg/dL 11/07/2024 9:26 AM [facility] Blood (Plasma/Serum) 11/07/2024 8:13 AM EST 11/07/2024 8:49 AM EST Juaquin Kern MD [place] [address], [place] [address] * (ABNORMAL) Comprehensive Metabolic Panel (11/07/2024 8:13 AM EST) Glucose 188(H) 65 - 99 mg/dL 11/07/2024 9:26 AM [facility] Comment:Fasting: <100 mg/dL, Non-Fasting: <200 mg/dL (ADA 2004) Blood Urea Nitrogen (BUN) 47(H) 8 - 21 mg/dL 11/07/2024 9:26 AM [facility] Creatinine 1.5(H) 0.5 - 1.3 mg/dL 11/07/2024 9:26 AM [facility] eGFR 52(L) >59 11/07/2024 9:26 AM [facility] Comment:CKD-EPI (2020) in mL /min/1.73 sq meters. Sodium 129(L) 136 - 145 mmol/L 11/07/2024 9:26 AM [facility] Potassium 3.9 3.4 - 5.3 mmol/L 11/07/2024 9:26 AM [facility] Chloride 94(L) 98 - 107 mmol/L 11/07/2024 9:26 AM [facility] CO2 22 22 - 33 mmol/L 11/07/2024 9:26 AM [facility] Calcium 8.3(L) 8.7 - 10.5 mg/dL 11/07/2024 9:26 AM [facility] Alkaline Phosphatase 220(H) 45 - 128 U/L 11/07/2024 9:26 AM [facility] Aspartate Aminotrans (AST) 28 10 - 55 U/L 11/07/2024 9:26 AM [facility] Alanine Aminotrans (ALT) 29 10 - 55 U/L 11/07/2024 9:26 AM [facility] Bilirubin, Total 0.2 0.2 - 1.0 mg/dL 11/07/2024 9:26 AM [facility] Protein, Total 6.1(L) 6.3 - 8.3 g/dL 11/07/2024 9:26 AM [facility] Albumin 2.6(L) 3.4 - 4.8 g/dL 11/07/2024 9:26 AM [facility] BUN/Creatinine Ratio 31(H) 10.0 - 25.0 Ratio 11/07/2024 9:26 AM [facility] Globulin 3.5 1.5 - 3.9 g/dL 11/07/2024 9:26 AM [facility] Albumin/Globulin Ratio 0.7(L) 1.0 - 3.0 Ratio 11/07/2024 9:26 AM [facility] Anion Gap 13 7 - 17 11/07/2024 9:26 AM [facility] Blood (Plasma/Serum) 11/07/2024 8:13 AM EST 11/07/2024 8:49 AM EST Juaquin Kern MD LAB BLOOD ORDERABL ES [address] [address], [address] [address] * (ABNORMAL) POCT Glucose, Fingerstick (11/07/2024 7:33 AM EST) POC Glucose 191(H) 65 - 99 mg/dL 11/07/2024 7:36 AM EST Blood specimen / Unknown 11/07/2024 7:33 AM EST 11/07/2024 7:36 AM EST Dallas Camejo MD POINT OF CARE TEST O [place] Performing Organization Address [facility] Co ma Phone Number [facility] LAB See Below * (ABNORMAL) POCT Glucose, Fingerstick (11/07/2024 2:07 AM EST) POC Glucose 231(H) 65 - 99 mg/dL 11/07/2024 2:08 AM EST Blood specimen / Unknown 11/07/2024 2:07 AM EST 11/07/2024 2:08 AM EST Dallas Camejo MD POINT OF CARE TEST O JOSEPH Performing Organization Address [facility] Phone Number [facility] See Below * (ABNORMAL) POCT Glucose, Fingerstick (11/06/2024 9:23 PM EST) POC Glucose 277(H) 65 - 99 mg/dL 11/06/2024 9:24 PM EST Blood specimen / Unknown 11/06/2024 9:23 PM EST 11/06/2024 9:24 PM EST Dallas Camejo MD POINT OF CARE TEST [place] Performing Organization Address [facility] Co ma Phone Number [facility] See Below * (ABNORMAL) POCT Glucose, Fingerstick (11/06/2024 5:24 PM EST) POC Glucose 193(H) 65 - 99 mg/dL 11/06/2024 5:29 PM EST Blood specimen / Unknown 11/06/2024 5:24 PM EST 11/06/2024 5:29 PM EST Dallas Camejo MD POINT OF CARE TEST O RDER[place] Performing Organization Address [facility] LAB See Below * (ABNORMAL) POCT Glucose, Fingerstick (11/06/2024 2:45 PM EST) POC Glucose 217(H) 65 - 99 mg/dL 11/06/2024 2:46 PM EST Blood specimen / Unknown 11/06/2024 2:45 PM EST 11/06/2024 2:46 PM EST Dallas Camejo MD POINT OF CARE TEST [place] Performing Organization Address [facility] LAB See Below * (ABNORMAL) POCT Glucose, Fingerstick (11/06/2024 12:10 PM EST) POC Glucose 229(H) 65 - 99 mg/dL 11/06/2024 2:24 PM EST Blood specimen / Unknown 11/06/2024 12:10 PM EST 11/06/2024 2:24 PM EST Dallas Camejo MD POINT OF CARE TEST [place] Performing Organization Address [facility] LAB See Below * (ABNORMAL) POCT Glucose, Fingerstick (11/06/2024 7:51 AM EST) POC Glucose 210(H) 65 - 99 mg/dL 11/06/2024 8:43 AM EST Blood specimen / Unknown 11/06/2024 7:51 AM EST 11/06/2024 8:43 AM EST Dallas Camejo MD POINT OF CARE TEST [place] Performing Organization Address [facility] LAB See Below * (ABNORMAL) Complete Blood Count WITH Differential - Early AM (11/06/2024 4:58 AM EST) White Blood Cell Count 11.9(H) 4.0 - 11.0 Thou/uL 11/06/2024 5:26 AM [facility] Platelet Count 346 150 - 450 Thou/uL 11/06/2024 5:26 [facility] Hemoglobin 8.7(L) 13.0 - 17.7 g/dL 11/06/2024 5:26 AM [facility] Hematocrit 27.9(L) 39.0 - 54.0 % 11/06/2024 5:26 AM [facility] Red Blood Cell Count 3.05(L) 4.50 - 6.20 Mil/uL 11/06/2024 5:26 [facility] MCV 92 80 - 100 fL 11/06/2024 5:26 [facility]CH 28.5 27.0 - 31.0 pg 11/06/2024 5:26 AM [facility] MCHC 31.2 30.0 - 36.0 g/dL 11/06/2024 5:26 AM [facility] RDW 16.4(H) 11.5 - 14.5 % 11/06/2024 5:26 [facility] MPV 9.5 7.5 - 12.5 fL 11/06/2024 5:26 [facility] Neutrophils Auto 88.8 % 11/06/19 5:26 [facility] Immature Granulocytes 1.1 % 11/06/2024 5:26 [facility] Lymphocytes Auto 3.4 % 11/06/19 5:26 AM [facility] Monocytes Auto 6.6 % 11/06/2024 5:26 [facility] Eosinophils Auto 0.0 % 11/06/19 5:26 [facility] Basophils Auto 0.1 % 11/06/2024 5:26 [facility] Abs Neutrophils Auto 10.57(H) 2.00 - 7.50 Thou/uL 11/06/2024 5:26 [facility] Abs Immature Granulocytes 0.13(H) 0.00 - 0.10 Thou/uL 11/06/2024 5:26 AM [facility] Abs Lymphocytes Auto 0.41(L) 1.50 - 4.50 Thou/uL 11/06/2024 5:26 AM [facility] Abs Monocytes Auto 0.79 0.20 - 1.50 Thou/uL 11/06/2024 5:26 AM [facility] Abs Eosinophils Auto 0.00 0.00 - 0.70 Thou/uL 11/06/2024 5:26 AM [facility] Abs Basophils Auto 0.01 0.00 - 0.20 Thou/uL 11/06/2024 5:26 AM [facility] Blood Blood specimen / Unknown 11/06/2024 4:58 AM EST 11/06/2024 5:15 AM EST Renea PATTON LAB BLOOD ORDERABLES Performing Organization Address City/[facility] [place] [address], [place] [address] * (ABNORMAL) PHOSPHORUS (11/06/2024 4:58 AM EST) Phosphorus 5.1(H) 2.7 - 4.5 mg/dL 11/06/2024 5:46 AM [facility] Blood (Plasma/Serum) 11/06/2024 4:58 AM EST 11/06/2024 5:15 AM EST Renea PATTON LAB BLOOD ORDERABLES Performing Organization Address City/[facility]/[place] [address], [place] [address] * MAGNESIUM (11/06/2024 4:58 AM EST) Magnesium 2.5 1.6 - 2.7 mg/dL 11/06/2024 5:46 AM [facility] Blood (Plasma/Serum) 11/06/2024 4:58 AM EST 11/06/2024 5:15 AM EST Renea PATTON LAB BLOOD ORDERABLES [facility] [address] [place] [address], [facility] [address] [place] [address] * (ABNORMAL) Comprehensive Metabolic Panel (11/06/2024 4:58 AM EST) Glucose 194(H) 65 - 99 mg/dL 11/06/2024 5:46 AM [facility] Comment:Fasting: <100 mg/dL, Non-Fasting: <200 mg/dL (ADA 2005) Blood Urea Nitrogen (BUN) 48(H) 8 - 21 mg/dL 11/06/2024 5:46 AM [facility] Creatinine 1.7(H) 0.5 - 1.3 mg/dL 11/06/2024 5:46 AM [facility] eGFR 45(L) >59 11/06/2024 5:46 AM [facility] Comment:CKD-EPI (2020) in mL /min/1.73 sq meters. Sodium 131(L) 136 - 145 mmol/L 11/06/2024 5:46 AM [facility] Potassium 3.8 3.4 - 5.3 mmol/L 11/06/2024 5:46 AM [facility] Chloride 99 98 - 107 mmol/L 11/06/2024 5:46 AM [facility] CO2 20(L) 22 - 33 mmol/L 11/06/2024 5:46 AM [facility] Calcium 7.8(L) 8.7 - 10.5 mg/dL 11/06/2024 5:46 AM [facility] Alkaline Phosphatase 270(H) 45 - 128 U/L 11/06/2024 5:46 AM [facility] Aspartate Aminotrans (AST) 50 10 - 55 U/L 11/06/2024 5:46 AM [facility] Alanine Aminotrans (ALT) 31 10 - 55 U/L 11/06/2024 5:46 AM [facility] Bilirubin, Total 0.2 0.2 - 1.0 mg/dL 11/06/2024 5:46 AM [facility] Protein, Total 5.7(L) 6.3 - 8.3 g/dL 11/06/2024 5:46 AM [facility] Albumin 2.4(L) 3.4 - 4.8 g/dL 11/06/2024 5:46 AM [facility] BUN/Creatinine Ratio 28(H) 10.0 - 25.0 Ratio 11/06/2024 5:46 AM [facility] Globulin 3.3 1.5 - 3.9 g/dL 11/06/2024 5:46 AM [facility] Albumin/Globulin Ratio 0.7(L) 1.0 - 3.0 Ratio 11/06/2024 5:46 AM [facility] Anion Gap 12 7 - 17 11/06/2024 5:46 AM [facility] Blood (Plasma/Serum) 11/06/2024 4:58 AM EST 11/06/2024 5:15 AM EST Renea PATTON LAB BLOOD ORDERABLES Performing Organization Address [facility] [place] [address], [place] [address] * BLOOD CULTURE Peripheral (11/06/2024 4:58 AM EST) Culture Sterile after 5 days 11/11/2024 8:20 AM [facility] Microbiology Peripheral blood specimen / Unknown 11/06/2024 4:58 AM EST 11/06/2024 5:36 AM EST Renea PATTON LAB AMB MICRO ORDERA BLES Performing Organization Address City/[facility]/ZIP Co de Phone Number [facility] [address] * BLOOD CULTURE Peripheral (11/06/2024 4:58 AM EST) Culture Sterile after 5 days 11/11/2024 8:20 AM EST [facility] Microbiology Peripheral blood specimen / Unknown 11/06/2024 4:58 AM EST 11/06/2024 5:36 AM EST Renea PATTON LAB AMB MICRO ORDERA BLES [facility] [address] [place] [address], * (ABNORMAL) POCT Glucose, Fingerstick (11/06/2024 1:17 AM EST) POC Glucose 229(H) 65 - 99 mg/dL 11/06/2024 1:18 AM EST Blood specimen / Unknown 11/06/2024 1:17 AM EST 11/06/2024 1:18 AM EST Dallas Camejo MD POINT OF CARE TEST O RDERALUCILLE Performing Organization Address [facility] Co de Phone Number [facility] See Below * (ABNORMAL) POCT Glucose, Fingerstick (11/05/2024 11:05 PM EST) POC Glucose 251(H) 65 - 99 mg/dL 11/05/2024 11:07 PM EST Blood specimen / Unknown 11/05/2024 11:05 PM EST 11/05/2024 11:07 PM EST Dallas Camejo MD POINT OF CARE TEST O RDERALUCILLE Performing Organization Address [facility] Co de Phone Number [facility] See Below * (ABNORMAL) POCT Glucose, Fingerstick (11/05/2024 6:10 PM EST) POC Glucose 138(H) 65 - 99 mg/dL 11/05/2024 6:10 PM EST Blood specimen / Unknown 11/05/2024 6:10 PM EST 11/05/2024 6:11 PM EST Dallas Camejo MD POINT OF CARE TEST O RDERALUCILLE Performing Organization Address [facility] Co de Phone Number [facility] See Below * (ABNORMAL) POCT Glucose, Fingerstick (11/05/2024 3:37 PM EST) POC Glucose 138(H) 65 - 99 mg/dL 11/05/2024 3:38 PM EST Blood specimen / Unknown 11/05/2024 3:37 PM EST 11/05/2024 3:38 PM EST Dallas Camejo MD POINT OF CARE TEST O [facility] LAB See Below * Pathology (11/05/2024 2:11 PM EST) Report [facility] [id number] ?? CLIA ID [id number] [address] [place] [address] ??[phone] Surgical Pathology Report PATIENT NAME: BLAS GENAO [facility] REC NUMBER: [id number] (AGE): 1960 (Age: 63) SPECIMEN NUMBER: [id number] DATE OBTAINED: 11/05/2024 DIAGNOSIS LEFT LOWER EXTREMITY, BELOW KNEE AMPUTATION: ??SEVERE PERIPHERAL ARTERIOSCLEROSIS WITH CALCIFICATION, GANGRENOUS ULCER OF FOOT WITH SEVERE ACUTE OSTEOMYELITIS. NEGATIVE AMPUTATION MARGIN. /11/16/2024 Electronically Signed Out ? SENA SHABAZZ MD COMMENT [id number], [id number] Clinical Information and History: Acute osteomyelitis of [...] other masses or lesions are grossly identified. ??[employer] sections are submitted in A1 - ?? [...] EST Dallas Camejo MD PATHOLOGY/CYTOLOGY O RDERABLES [facility] See Below * (ABNORMAL) POCT Glucose, Fingerstick (11/05/2024 12:54 PM EST) POC Glucose 128(H) 65 - 99 mg/dL 11/05/2024 2:08 PM EST Blood specimen / Unknown 11/05/2024 12:54 PM EST 11/05/2024 2:08 PM EST Dallas Camejo MD POINT OF CARE TEST O RDERABLES Performing Organization Address [facility] Co de Phone Number [facility] See Below * (ABNORMAL) PROTIME-INR (11/05/2024 7:12 AM EST) Pathologist [facility] Anticoagulant Information not given 11/05/2024 7:47 AM [facility] Prothrombin Time (PT) 15.3(H) 10.0 - 13.5 seconds 11/05/2024 8:07 AM [facility] INR 1.3 11/05/2024 8:07 AM [facility] Comment:INR Therapeutic Rang es: Standard dose anticoagulant 2.0 to 3.0, High dose anticoagulant 2.5-3.5. Plasma specimen / Unknown 11/05/2024 7:12 AM EST 11/05/2024 7:46 AM EST Chris Taylor MD LAB BLOOD ORDERABLES Performing Organization Address [facility] [place] [address], [place] [address] * (ABNORMAL) COMPLETE BLOOD COUNT, WITHOUT DIFFERENTIAL (11/05/2024 7:12 AM EST) Pathologist [facility] White Blood Cell Count 15.9(H) 4.0 - 11.0 Thou/uL 11/05/2024 7:59 AM [facility] Platelet Count 353 150 - 450 Thou/uL 11/05/2024 7:59 AM [facility] Hemoglobin 9.1(L) 13.0 - 17.7 g/dL 11/05/2024 7:59 AM [facility] Hematocrit 28.3(L) 39.0 - 54.0 % 11/05/2024 7:59 AM [facility] Red Blood Cell Count 3.12(L) 4.50 - 6.20 Mil/uL 11/05/2024 7:59 AM [facility] MCV 91 80 - 100 fL 11/05/2024 7:59 AM [facility] MCH 29.2 27.0 - 31.0 pg 11/05/2024 7:59 AM [facility] MCHC 32.2 30.0 - 36.0 g/dL 11/05/2024 7:59 AM [facility] RDW 16.8(H) 11.5 - 14.5 % 11/05/2024 7:59 AM [facility] MPV 9.8 7.5 - 12.5 fL 11/05/2024 7:59 AM [facility] Blood specimen / Unknown 11/05/2024 7:12 AM EST 11/05/2024 7:46 AM EST Chris Taylor MD [place] [address], [place] [address] * (ABNORMAL) BASIC METABOLIC PANEL (11/05/2024 7:12 AM EST) Glucose 146(H) 65 - 99 mg/dL 11/05/2024 8:18 AM [facility] Comment:Fasting: <100 mg/dL, Non-Fasting: <200 mg/dL (ADA 2005) Blood Urea Nitrogen (BUN) 47(H) 8 - 21 mg/dL 11/05/2024 8:18 AM [facility] Creatinine 2.0(H) 0.5 - 1.3 mg/dL 11/05/2024 8:18 AM [facility] eGFR 37(L) >59 11/05/2024 8:18 AM [facility] Comment:CKD-EPI (2020) in mL /min/1.73 sq meters. Sodium 130(L) 136 - 145 mmol/L 11/05/2024 8:18 AM [facility] Potassium 3.4 3.4 - 5.3 mmol/L 11/05/2024 8:18 AM [facility] Chloride 96(L) 98 - 107 mmol/L 11/05/2024 8:18 AM [facility] CO2 19(L) 22 - 33 mmol/L 11/05/2024 8:18 AM [facility] Anion Gap 15 7 - 17 11/05/2024 8:18 AM [facility] Calcium 7.9(L) 8.7 - 10.5 mg/dL 11/05/2024 8:18 AM [facility] BUN/Creatinine Ratio 24 10.0 - 25.0 Ratio 11/05/2024 8:18 AM [facility] Plasma/Serum 11/05/2024 7:12 AM EST 11/05/2024 7:46 AM EST Chris Taylor MD LAB BLOOD ORDERABLES Performing Organization Address City/State/[facility] [place] [address], [place] [address] * (ABNORMAL) Hepatic Function Panel (AM) (11/05/2024 7:12 AM EST) Alkaline Phosphatase 153(H) 45 - 128 U/L 11/05/2024 8:18 AM [facility] Aspartate Aminotrans (AST) 26 10 - 55 U/L 11/05/2024 8:18 AM [facility] Alanine Aminotrans (ALT) 23 10 - 55 U/L 11/05/2024 8:18 AM [facility] Bilirubin, Total 0.3 0.2 - 1.0 mg/dL 11/05/2024 8:18 AM [facility] Protein, Total 5.9(L) 6.3 - 8.3 g/dL 11/05/2024 8:18 AM [facility] Albumin 2.5(L) 3.4 - 4.8 g/dL 11/05/2024 8:18 AM [facility] Bilirubin, Direct 0.2 0 - 0.2 mg/dL 11/05/2024 8:18 AM [facility] Globulin 3.4 1.5 - 3.9 g/dL 11/05/2024 8:18 AM EST [facility] Albumin/Globulin Ratio 0.7(L) 1.0 - 3.0 Ratio 11/05/2024 8:18 AM EST [facility] Blood (Plasma/Serum) 11/05/2024 7:12 AM EST 11/05/2024 7:46 AM EST Chris Taylor MD [place] [address], [place] [address] * Creatine Kinase, Reflex to CKMB (11/05/2024 7:12 AM EST) Creatine Kinase (CK) 49 24 - 204 U/L 11/05/2024 8:18 AM EST [facility] Blood (Plasma/Serum) 11/05/2024 7:12 AM EST 11/05/2024 7:46 AM EST Chris Taylor MD LAB BLOOD ORDERABLES Performing Organization Address City/[facility]/[place] [address], [place] [address] * (ABNORMAL) POCT Glucose, Fingerstick (11/05/2024 6:26 [...] ruled out. Interpreted by: ??David Vogt DO [employer] I personally reviewed the images and the [...] ruled out. Interpreted by: David Vogt DO [employer] He[employer] I personally reviewed the images and the resident's preliminary report and AGREE with the report as it is now presented ([id number]). Sullivan A Arian PA-C IMG DIAGNOSTIC IMAGING ORDERABLES * (ABNORMAL) POCT Glucose, Fingerstick (11/04/2024 8:52 PM EST) POC Glucose 258(H) 65 - 99 mg/dL 11/04/2024 9:36 PM EST Blood specimen / Unknown 11/04/2024 8:52 PM EST 11/04/2024 9:36 PM EST Dallas Camejo MD POINT OF CARE TEST O RDERALUCILLE Performing Organization Address [facility] Phone Number [facility] See Below * (ABNORMAL) POCT Glucose, Fingerstick (11/04/2024 5:00 PM EST) POC Glucose 172(H) 65 - 99 mg/dL 11/04/2024 5:22 PM EST Blood specimen / Unknown 11/04/2024 5:00 PM EST 11/04/2024 5:22 PM EST Dallas Camejo MD POINT OF CARE TEST O CRISTIANERALUCILLE Performing Organization Address [facility] Phone Number [facility] See Below * (ABNORMAL) POCT Glucose, Fingerstick (11/04/2024 12:43 PM EST) POC Glucose 167(H) 65 - 99 mg/dL 11/04/2024 12:48 PM EST Blood specimen / Unknown 11/04/2024 12:43 PM EST 11/04/2024 12:48 PM EST Dallas Camejo MD POINT OF CARE TEST O RDERALUCILLE Performing Organization Address [facility] Phone Number [facility] See Below * (ABNORMAL) Complete Blood Count WITHOUT Differential - Early AM (11/04/2024 11:19 AM EST) White Blood Cell Count 13.4(H) 4.0 - 11.0 Thou/uL 11/04/2024 11:38 AM EST [facility] Platelet Count 326 150 - 450 Thou/uL 11/04/2024 11:38 AM [facility] Hemoglobin 8.7(L) 13.0 - 17.7 g/dL 11/04/2024 11:38 AM [facility] Hematocrit 28.0(L) 39.0 - 54.0 % 11/04/2024 11:38 AM [facility] Red Blood Cell Count 3.05(L) 4.50 - 6.20 Mil/uL 11/04/2024 11:38 AM [facility] MCV 92 80 - 100 fL 11/04/2024 11:38 AM [facility] MCH 28.5 27.0 - 31.0 pg 11/04/2024 11:38 AM [facility] MCHC 31.1 30.0 - 36.0 g/dL 11/04/2024 11:38 AM [facility] RDW 16.6(H) 11.5 - 14.5 % 11/04/2024 11:38 AM [facility] MPV 9.4 7.5 - 12.5 fL 11/04/2024 11:38 AM [facility] Blood Blood specimen / Unknown 11/04/2024 11:19 AM EST 11/04/2024 11:28 AM EST Renea PATTON LAB BLOOD ORDERABLES Performing Organization Address City/State/[facility] [place] [address], [place] [address] * (ABNORMAL) BLOOD CULTURE Peripheral (11/04/2024 11:03 AM EST) Gram stain suggestive of Gram positive cocci in clusters 11/07/2024 10:29 AM [facility] Culture Methicillin Resistant Staph aureus (MRSA) Aerobic bottle positive. Susceptibility of the same isolate identification, from the same apparent body site is only performed once per 5 calendar days. ?See susceptibilities reported on specimen collected 11/02/2024 (A) 11/08/2024 12:21 PM [facility] Microbiology Peripheral blood specimen / Unknown 11/04/2024 11:03 AM EST 11/04/2024 12:35 PM EST Chris Taylor MD LAB AMB MICRO ORDERA BLES Performing Organization Address [facility]/ZIP Co de Phone Number [facility] [address] [place] [address], * (ABNORMAL) BLOOD CULTURE Peripheral (11/04/2024 11:03 AM EST) Gram stain suggestive of Gram positive cocci in clusters 11/07/2024 1:43 PM [facility] Culture Methicillin Resistant Staph aureus (MRSA) Aerobic bottle positive. Susceptibility of the same isolate identification, from the same apparent body site is only performed once per 5 calendar days. ?See susceptibilities reported on specimen collected 11/02/2024 (A) 11/08/2024 12:17 PM [facility] Microbiology Peripheral blood specimen / Unknown 11/04/2024 11:03 AM EST 11/04/2024 12:35 PM EST Chris Taylor MD LAB AMB MICRO ORDERA BLES Performing Organization Address [facility]/ZIP Co de Phone Number [facility] [address] [place] [address], * (ABNORMAL) Basic Metabolic Panel (Routine) (11/04/2024 10:50 AM EST) Glucose 184(H) 65 - 99 mg/dL 11/04/2024 11:53 AM [facility] Comment:Fasting: <100 mg/dL, Non-Fasting: <200 mg/dL (ADA 2005) Blood Urea Nitrogen (BUN) 48(H) 8 - 21 mg/dL 11/04/2024 11:53 AM [facility] Creatinine 2.0(H) 0.5 - 1.3 mg/dL 11/04/2024 11:53 AM [facility] eGFR 37(L) >59 11/04/2024 11:53 AM [facility] Comment:CKD-EPI (2020) in mL /min/1.73 sq meters. Sodium 130(L) 136 - 145 mmol/L 11/04/2024 11:53 AM [facility] Potassium 3.7 3.4 - 5.3 mmol/L 11/04/2024 11:53 AM [facility] Chloride 95(L) 98 - 107 mmol/L 11/04/2024 11:53 AM [facility] CO2 21(L) 22 - 33 mmol/L 11/04/2024 11:53 AM [facility] Anion Gap 14 7 - 17 11/04/2024 11:53 AM [facility] Calcium 7.7(L) 8.7 - 10.5 mg/dL 11/04/2024 11:53 AM [facility] BUN/Creatinine Ratio 24 10.0 - 25.0 Ratio 11/04/2024 11:53 AM [facility] Blood (Plasma/Serum) 11/04/2024 10:50 AM EST 11/04/2024 11:28 AM EST Juaquin Kern MD LAB BLOOD ORDERABL ES Performing Organization Address City/State/[facility] [place] [address], [place] [address] * ECHOCARDIOGRAM COMPREHENSIVE (11/04/2024 9:05 AM EST) [...] ?Compared to previous outside study report from [facility] on 08/05/2024, Mitral and tricuspid regurgitation [...] Compared to previous outside study report from [facility] on 08/05/2024, Mitral and tricuspid regurgitation [...] BANK PRODUCT O RDERABLES Performing Organization Address [facility] LAB See Below * (ABNORMAL) POCT Glucose, Fingerstick (11/03/2024 9:25 PM EST) POC Glucose 229(H) 65 - 99 mg/dL 11/03/2024 9:26 PM EST Blood specimen / Unknown 11/03/2024 9:25 PM EST 11/03/2024 9:26 PM EST Dallas Camejo MD POINT OF CARE TEST O RDERALUCILLE Performing Organization Address [facility] See Below * (ABNORMAL) POCT Glucose, Fingerstick (11/03/2024 5:50 PM EST) POC Glucose 158(H) 65 - 99 mg/dL 11/03/2024 6:19 PM EST Blood specimen / Unknown 11/03/2024 5:50 PM EST 11/03/2024 6:19 PM EST Dallas Camejo MD POINT OF CARE TEST O RDERABLES Performing Organization Address [facility] Number [facility] See Below * (ABNORMAL) POCT Glucose, Fingerstick (11/03/2024 11:43 AM EST) POC Glucose 153(H) 65 - 99 mg/dL 11/03/2024 11:48 AM EST Blood specimen / Unknown 11/03/2024 11:43 AM EST 11/03/2024 11:48 AM EST Dallas Camejo MD POINT OF CARE TEST O RDERALUCILLE Performing Organization Address [facility]/ZIP Co de Phone Number HOSPITAL LAB See Below * Creatine Kinase (CK) (11/03/2024 10:52 AM EST) Pathologist [facility] Creatine Kinase (CK) 61 24 - 204 U/L 11/03/2024 11:37 AM EST [facility] Blood (Plasma/Serum) 11/03/2024 10:52 AM EST 11/03/2024 11:10 AM EST Ena Mtz MD LAB BLOOD ORDERA BLES Performing Organization Address [facility]/[place] [address], [place] [address] * (ABNORMAL) POCT Glucose, Fingerstick (11/03/2024 7:56 AM EST) [facility] POC Glucose 165(H) 65 - 99 mg/dL 11/03/2024 8:04 AM EST Blood specimen / Unknown 11/03/2024 7:56 AM EST 11/03/2024 8:04 AM EST Dallas Camejo MD POINT OF CARE TEST O RDERABLES Performing Organization Address City/[facility]/ZIP Co de Phone Number [facility] See Below * MRSA PCR Screen, Qualitative (11/03/2024 3:24 AM EST) [facility] MRSA Result Not Detected Not Detected 7:00 AM EST [facility] Comment:Performed by the Xpe rt MRSA NxG Assay X-Specimen 12 Specimen from nose / Unknown 11/03/2024 3:24 AM EST 11/03/2024 5:23 AM EST Kenzie PATTON MICROBIOLOGY - GENE RAL ORDERABLES Performing Organization Address [facility]/[place] [address], [place] [address] * ECG 12 lead (STAT) (11/02/2024 9:34 PM EST) Pathologist [facility] Ventricular rate 70 BPM EKG [facility] Atrial rate 70 BPM EKG [facility] P-R interval 272 ms EKG [facility] QRS duration 202 ms EKG [facility] Q-T interval 510 ms EKG [facility] QTC calculation (Bazett) 551 ms EKG [facility] P axis 81 degrees EKG [facility] R axis 29 degrees EKG [facility] T axis 132 degrees EKG [facility] 11/02/2024 9:34 PM EST Narrative EKG [facility] - 11/03/2024 4:30 PM EST Atrial-sensed [...] 11/03/2024 4:30:25 PM Kenzie PATTON ECG ORDERABLES [facility] * (ABNORMAL) POCT Glucose, Fingerstick (11/02/2024 9:19 PM EST) [facility] POC Glucose 163(H) 65 - 99 mg/dL 11/02/2024 9:20 PM EST Blood specimen / Unknown 11/02/2024 9:19 PM EST 11/02/2024 9:20 PM EST Dallas Camejo MD POINT OF CARE TEST O RDERABLES [facility]ITAL [facility] See Below * (ABNORMAL) Blood Culture ID PCR Panel (11/02/2024 8:00 PM EST) [facility] BC ID PCR Result Summary Enterococcus [...] Kenzie PATTON MICROBIOLOGY - GENE RAL ORDERABLES [facility] [address] [address], * (ABNORMAL) Erythrocyte Sedimentation Rate (ESR) (11/02/2024 8:00 PM EST) Erythrocyte Sediment Rate (ESR) 79(H) <20 MM/HR 11/02/2024 8:51 PM EST [facility] Blood specimen / Unknown 11/02/2024 8:00 PM EST 11/02/2024 8:22 PM EST Kenzie Chandlergisselle PATTON [place] [address], [place] [address] * (ABNORMAL) C-REACTIVE PROTEIN (11/02/2024 8:00 PM EST) C-Reactive Protein 29.62(H) 0 - 0.49 mg/dL 11/03/2024 12:04 AM [facility] Plasma/Serum 11/02/2024 8:00 PM EST 11/02/2024 8:22 PM EST Kenzie Chandlersadenegrita POOJA [place] [address], [place] [address] * (ABNORMAL) BLOOD CULTURE Peripheral (11/02/2024 8:00 PM EST) Gram stain suggestive of Gram positive cocci 11/03/2024 3:55 PM [facility] Culture Methicillin Resistant Staph aureus (MRSA) Aerobic and Anaerobic bottle positive. Complete identification and susceptibility of the same isolate, if appropriate, performed on only one blood culture collection per day. (A) 11/06/2024 12:15 PM [facility] Culture Enterococcus faecalis Aerobic and Anaerobic bottle positive. Complete identification and susceptibility of the same isolate, if appropriate, performed on only one blood culture collection per day. (A) 11/06/2024 12:15 PM EST [facility] Microbiology Peripheral blood specimen / Unknown 11/02/2024 8:00 PM EST 11/02/2024 8:28 PM EST Sagrario Taylor PATTON LAB AMB MICRO ORDER JOSE [facility] [address] [place] [address], * (ABNORMAL) BLOOD CULTURE Peripheral (11/02/2024 8:00 PM EST) Gram stain suggestive of Gram positive cocci 11/03/2024 3:50 PM EST [facility] Culture Methicillin Resistant Staph aureus (MRSA) Aerobic and Anaerobic bottle positive. (A) 11/05/2024 1:52 PM EST [facility] Culture Enterococcus faecalis Aerobic and Anaerobic bottle positive. (A) 11/05/2024 1:52 PM EST [facility] Culture Enterococcus faecium Anaerobic bottle positive. (A) 11/05/2024 1:52 PM EST [facility] Microbiology Peripheral blood specimen [...] Kenzie PATTON LAB AMB MICRO ORDER JOSE [facility] [address] [place] [address], * Vitamin D, 25-Hydroxy (11/02/2024 8:00 PM EST) Vitamin D, 25-Hydroxy 50 30 - 100 ng/mL 11/02/2024 9:10 PM [facility] Blood (Plasma/Serum) 11/02/2024 8:00 PM EST 11/02/2024 8:23 PM EST Kenzie PATTON LAB BLOOD ORDERABLE S Performing Organization Address City/[facility]/[place] [address], [place] [address] * (ABNORMAL) TRANSFERRIN (11/02/2024 8:00 PM EST) Transferrin 178(L) 200 - 360 mg/dL 11/03/2024 12:04 AM [facility] Blood (Plasma/Serum) 11/02/2024 8:00 PM EST 11/02/2024 8:22 PM EST Kenzie PATTON LAB BLOOD ORDERABLE S Performing Organization Address City/[facility]/[place] [address], [place] [address] * (ABNORMAL) Prealbumin (11/02/2024 8:00 PM EST) Prealbumin 7(L) 20 - 40 mg/dL 11/03/2024 12:04 AM [facility] Blood (Plasma/Serum) 11/02/2024 8:00 PM EST 11/02/2024 8:22 PM EST Kenzie PATTON [place] [address], [place] [address] * (ABNORMAL) Albumin (11/02/2024 8:00 PM EST) Albumin 3.2(L) 3.4 - 4.8 g/dL 11/03/2024 12:04 AM [facility] Blood (Plasma/Serum) 11/02/2024 8:00 PM EST 11/02/2024 8:22 PM EST Kenzie Chandlergisselle PATTON LAB BLOOD ORDERABLE S Performing Organization Address [facility] [place] [address], [place] [address] * (ABNORMAL) Protime-INR (Routine) (11/02/2024 8:00 PM EST) Anticoagulant APIXABAN (ELIQUIS) 11/02/2024 6:26 PM EST Prothrombin Time (PT) 14.7(H) 10.0 - 13.5 seconds 11/02/2024 9:05 PM [facility] INR 1.3 11/02/2024 9:05 PM [facility] Comment:INR Therapeutic Rang es: Standard dose anticoagulant 2.0 to 3.0, High dose anticoagulant 2.5-3.5. Blood Plasma specimen / Unknown 11/02/2024 8:00 PM EST 11/02/2024 8:22 PM EST Kenzie Chandlergisselle PATTON LAB BLOOD ORDERABLE S Performing Organization Address City/[facility] [place] [address], [place] [address] * (ABNORMAL) Basic Metabolic Panel (STAT) (11/02/2024 8:00 PM EST) Glucose 171(H) 65 - 99 mg/dL 11/03/2024 12:04 AM [facility] Comment:Fasting: <100 mg/dL, Non-Fasting: <200 mg/dL (ADA 2005) Blood Urea Nitrogen (BUN) 41(H) 8 - 21 mg/dL 11/03/2024 12:04 AM [facility] Creatinine 2.0(H) 0.5 - 1.3 mg/dL 11/03/2024 12:04 AM [facility] eGFR 37(L) >59 11/03/2024 12:04 AM [facility] Comment:CKD-EPI (2020) in mL /min/1.73 sq meters. Sodium 130(L) 136 - 145 mmol/L 11/03/2024 12:04 AM [facility] Potassium 4.0 3.4 - 5.3 mmol/L 11/03/2024 12:04 AM [facility] Chloride 92(L) 98 - 107 mmol/L 11/03/2024 12:04 AM [facility] CO2 19(L) 22 - 33 mmol/L 11/03/2024 12:04 AM [facility] Anion Gap 19(H) 7 - 17 11/03/2024 12:04 AM [facility] Calcium 8.5(L) 8.7 - 10.5 mg/dL 11/03/2024 12:04 AM [facility] BUN/Creatinine Ratio 21 10.0 - 25.0 Ratio 11/03/2024 12:04 AM [facility] Blood (Plasma/Serum) 11/02/2024 8:00 PM EST 11/02/2024 8:22 PM EST Kenzie PATTON LAB BLOOD ORDERABLE S Performing Organization Address City/State/[facility] [place] [address], [place] [address] * (ABNORMAL) Complete Blood Count WITH Differential - STAT (11/02/2024 8:00 PM EST) White Blood Cell Count 14.3(H) 4.0 - 11.0 Thou/uL 11/02/2024 8:32 PM [facility] Platelet Count 395 150 - 450 Thou/uL 11/02/2024 8:32 PM [facility] Hemoglobin 9.3(L) 13.0 - 17.7 g/dL 11/02/2024 8:32 PM [facility] Hematocrit 29.3(L) 39.0 - 54.0 % 11/02/2024 8:32 PM [facility] Red Blood Cell Count 3.20(L) 4.50 - 6.20 Mil/uL 11/02/2024 8:32 PM [facility] MCV 92 80 - 100 fL 11/02/2024 8:32 PM [facility] MCH 29.1 27.0 - 31.0 pg 11/02/2024 8:32 PM [facility] MCHC 31.7 30.0 - 36.0 g/dL 11/02/2024 8:32 PM [facility] RDW 16.1(H) 11.5 - 14.5 % 11/02/2024 8:32 PM [facility] MPV 9.5 7.5 - 12.5 fL 11/02/2024 8:32 PM [facility] Neutrophils Auto 81.9 % 11/02/19 8:32 PM [facility] Immature Granulocytes 0.6 % 11/02/2024 8:32 PM [facility] Lymphocytes Auto 4.8 % 11/02/19 8:32 PM [facility] Monocytes Auto 12.2 % 11/02/2024 8:32 PM [facility] Eosinophils Auto 0.1 % 11/02/19 8:32 PM [facility] Basophils Auto 0.4 % 11/02/2024 8:32 PM [facility] Abs Neutrophils Auto 11.67(H) 2.00 - 7.50 Thou/uL 11/02/2024 8:32 PM [facility] Abs Immature Granulocytes 0.08 0.00 - 0.10 Thou/uL 11/02/2024 8:32 PM [facility] Abs Lymphocytes Auto 0.69(L) 1.50 - 4.50 Thou/uL 11/02/2024 8:32 PM [facility] Abs Monocytes Auto 1.74(H) 0.20 - 1.50 Thou/uL 11/02/2024 8:32 PM [facility] Abs Eosinophils Auto 0.02 0.00 - 0.70 Thou/uL 11/02/2024 8:32 PM [facility] Abs Basophils Auto 0.05 0.00 - 0.20 Thou/uL 11/02/2024 8:32 PM [facility] Blood Blood specimen / Unknown 11/02/2024 8:00 PM EST 11/02/2024 8:22 PM EST Kenzie PATTON [place] [address], [place] [address] * Type and Screen (11/02/2024 7:56 PM EST) ABO/Rh A POSITIVE 11/02/2024 10:22 PM [facility] Antibody Screen NEGATIVE 11/02/2024 10:22 PM [facility] Specimen Expiration 11/05/2024 11/02/2024 10:22 PM [facility] Unit Number [id number] 11/04/2024 6:58 AM [facility] Blood Component Type LEUKOREDUCED RED CELLS 11/04/2024 6:58 AM [facility] Unit Division 00 11/04/2024 6:58 AM [facility] Unit Status REL FROM ALLOC 9:33 PM [facility] Transfusion Status OK TO TRANSFUSE 11/04/2024 6:58 AM [facility] Crossmatch Result Electronically Compatible 11/04/2024 6:58 AM [facility] Unit Number [id number] 11/04/2024 6:58 AM [facility] Blood Component Type LEUKOREDUCED RED CELLS 11/04/2024 6:58 AM [facility] Unit Division 00 11/04/2024 6:58 AM [facility] Unit Status REL FROM ALLOC 9:33 PM [facility] Transfusion Status OK TO TRANSFUSE 11/04/2024 6:58 AM [facility] Crossmatch Result Electronically Compatible 11/04/2024 6:58 AM [facility] Blood Blood specimen / Unknown 11/02/2024 7:56 PM EST 11/02/2024 8:51 PM EST Comment:Blood Kenzie PATTON BLOOD BANK TEST ORD ERABLES [place] [address] * (ABNORMAL) POCT Glucose, Fingerstick (11/02/2024 6:48 [...] Fri11/18/24 at 1130, All antimicrobials used at [facility] require an indication. Please complete the [...] 11/18/24 at 1130, All antimicrobials used at [facility] require an indication. Please complete the following documentation. Bacterial Infection Documented, Type of Therapy: New Therapy, Indication: Bacteremia 1041 (New Bag - Provider: Nelsno Iqbal RN) 1228 (New Bag - Provider: [...] Mitesh Caldwell RN) 0935 (Given - Provider: Mitseh Caldwell RN) erythromycin (ILOTYCIN) ophthalmic ointment 1 [...] Mitesh Caldwell RN)1753 (Given - Provider: Page Montemaoyr RN) 0323 (Given - Provider: Marisel Wray [...] provider 0749 (Not Given - Provider: Nelson Ibqal RN - Reason: Dose held per order [...] Comment: 105) 0900 (Given - Provider: Mitesh Cladwell RN)1219 (Not Given - Provider: Mitesh Caldwell [...] Iqbal RN)1729 (Given - Provider: Nelson Iqbal, JOUSE) 0817 (Given - Provider: Mitesh Caldwell RN)1228 [...] Iqbal RN)1406 (Given - Provider: Nelson Iqbal, RN)1728 (Given - Provider: Nelson Iqbal, JOSUE)2108 [...] of this encounter Care Teams Director Of Market Research Relationship Specialty Start Date End Date Lee Fabian MD PCP - General Internal Medicine 09/02/24 Vitaliy Fields MD [address] [place] [address] Cardiovascular Disease 09/02/24 Dallas Camejo MD [address] [place] [address] Surgery, Orthopedic 09/02/24 Rolando Lopez MD [address] Transplant - Ph [address] [place] [address] Physician Nephrology 09/02/24 Cesar Fair MD [address] [address] Surgery, Cardiac 11/08/24 documented as of this encounter
--- OUTSIDE RECORDS SUMMARY | 2024-12-10 15:24 | XMS_ITS | Encounter Summary ---
Author Organization [facility] Address [address] [place] [address] Care Team Providers Care Stereoplotter Operator Name Role Phone Lee Fabian MD Primary Care Provider Unavail able Vitaliy Fields MD Unavailable Dallas Camejo MD Unavailable [phone] Rolando Lopez MD Unavailable Cesar Fair MD Unavailable [phone] Daisy Her PT Unavailable [phone] Reason for Referral * Cardiovascular Test (Routine) - Pending Review Specialty Diagnoses / Procedures Referred By Contac t Referred To Contact Diagnoses Complete AV block (HCC) Presence of permanent cardiac pacemaker Bacteremia Procedures Cardiac Implantable Electronic Dev Eval Gretel Hinds, GASOLINE TESTER [address] [place] [address] Referral ID Status Reason Start Date Expiration Date V isits Requested Visits Authorized [id number] Pending Review 11/17/2024 11/18/2025 1 1 Encounter Details Date Type Department Care Team (Late st Contact Info) Description 11/17/2024 Orders Only [facility] Heart & Vascular [place] - Electrophysiology [address] [facility] [address] [place] [address] Gretel Hinds, GASOLINE TESTER [address] [phone] Complete AV block (HCC) (Primary Dx); Presence of permanent cardiac pacemaker; Bacteremia Social History Tobacco Use Types Packs/Day Years Used Date Smoking Tobacco: Former Cigarettes 1 29.2 1 2003 Smokeless Tobacco: Never Alcohol Use Standard Drinks/Week Comments Yes 21 (1 standard drink = 0.6 oz pu re alcohol) [facility] Utilities Answer Date Recorded In [...] any time in the past 12 m [facility], were you homeless or living in [...] PM EDT Office Visit [facility] [address] [address] Dallas Camejo MD [address] [place] [address] 12/16/2024 8:30 AM EDT Office Visit [facility] Infectious Disease [address] [place] [phone] Ena Mtz MD [address] [place] [address] 12/22/2024 10:00 AM EDT Appointment [facility] Heart & Vascular [place] [facility] - Echocardiography Laboratory [address] [place] [phone] Ena Mtz MD [address] [place] [address] documented as of this encounter Results * PM SINGLE LEAD EVAL WITH PROGRAM,[id number] (12/07/2024 2:14 PM EDT) Date Time Interrogation Session [id number] 4,009 PACEART Implantable Pulse Generator Nba Player Medtronic PACEART Implantable Pulse Generator Model [id number] Micra AV2 PACEART Implantable Pulse Generator Serial Number [id number] PACEART Implantable Pulse Generator Type Pacemaker PACEART [...] last reset 99.93 % PACEART Otf Statistic AMMONIUM SULFATE OPERATOR Percent 99.97 % PACEART Otf Statistic VS Percent 0.03 % PACEART Anatomical Region Laterality Modality Cardiac Device 12/07/2024 1:40 PM EDT Narrative 12/09/2024 11:59 AM EDT OBSERVATIONS: One month s/p Micra AV pacemaker evaluation performed. Patient feeling much better, asymptomatic. Battery longevity >10 years. AV synchrony 41.4%. AMMONIUM SULFATE OPERATOR only 58.5%. Normal pacemaker function. Discussed with Erin Reyna APRN, no changes made. Pacemaker extraction incision C/D/I. PRESENTING RHYTHM: AM-AMMONIUM SULFATE OPERATOR/AMMONIUM SULFATE OPERATOR @ 60 bpm INHIBITED RHYTHM: No ventricular response greater than 40 bpm PATIENT EDUCATION: Ongoing education for: device function, home monitor function, evaluation results. CHANGES MADE THIS SESSION: None RECOMMENDATIONS: Continue routine monitoring by [facility] - Dr. Fields. 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/10/24 09/16/2024 09/16/2024 11/24/2024 3:08 P M EST documented as of this encounter Care Teams Stereoplotter Operator Relationship Specialty Start Date End Date Lee Fabian MD PCP - General Internal Medicine 09/02/24 Vitaliy Fields MD [address] [place] [address] Cardiovascular Disease 09/02/24 Dallas Camejo MD [address] [place] [address] Surgery, Orthopedic 09/02/24 Rolando Lopez MD [address] Transplant - [address] [place] [address] Physician Nephrology 09/02/24 Cesar Fair MD [address] [id number] Surgery, Cardiac 11/08/24 Daisy Her, PT 85 [facility] [address] [place] [id number] Filing Machine OperatorIndustrial Engineering Analyst Medicine and Rehabilitation 11/18/24 documented as of this encounter
--- OUTSIDE RECORDS SUMMARY | 2024-12-10 15:25 | XMS_ITS | Encounter Summary ---
Author Organization [email or web address] [facility] Address [address] [place] [address] Care Team Providers Care Piggery Worker Name Role Phone Lee Fabian MD Primary Care Provider [phone] Encounter Details Date Type Department Care Team Description 10/21/2022 Gaming Worker Report Medical Records [address] [place] [address] Bev Roberson, FRANDY Social History Tobacco Use Types Packs/Day Years Used Date Smoking Tobacco: Former Cigarettes 1 15 Q uit: 10/30/2003 Smokeless Tobacco: Never Alcohol Use Standard Drinks/Week Comments Yes 12 (1 standard drink = 0.6 oz pu re alcohol) 12 pack Sex Assigned at Date Recorded Not on file COVID-19 Exposure Response Date Recorded In the last 10 days, have yo u been in contact with someone who was confirmed or suspected to have Coronavirus/COVID-19? No / Unsure 09/27/2022 3:09 PM EST documented as of this encounter Plan of Treatment Not on file documented as of this encounter Visit Diagnoses Not on filedocumented in this encounter Care Teams Piggery Worker Relationship Specialty Start Date End Date Lee Fabian MD [address] [place], [place] [phone] PCP - General Internal Medicine 03/23/20 documented as of this encounter
--- OUTSIDE RECORDS SUMMARY | 2024-12-10 15:25 | XMS_ITS | Encounter Summary ---
Author Organization [facility] Address [address] [place] [address] Care Team Providers Care Hot Plate Plywood Press Offbearer Name Role Phone Lee Fabian MD Primary Care Provider [phone] Reason for Visit * Reason Onset Date Comments Medication 04/28/2023 Encounter Details Date Type Department Care Team Description 04/28/2023 Refill Gastroenterology - [place] [address] [facility] [address] [place] [address] Aron Ventura MD [address] [facility] [address] [place] [address] Medication Social History Tobacco Use Types Packs/Day Years [...] on filedocumented in this encounter Care Teams Hot Plate Plywood Press Offbearer Relationship Specialty Start Date End Date Lee Fabian MD [address] [place] [address] PCP - General Internal Medicine 03/23/20 documented as of this encounter
--- OUTSIDE RECORDS SUMMARY | 2024-12-10 15:25 | XMS_ITS | Encounter Summary ---
Author Organization [facility] Address [address] [place] [address] Care Team Providers Care Cut Off Machine Unloader Name Role Phone Jarrett Merlos MD Primary Care Provider Unavail able Lee Fabian MD Primary Care Provider [phone] Encounter Details Date Type Department Care Team Description 12/12/2017 Sales Development Representative Report Medical Records [address] [place] [address] Charles Salazar DPM Social History Tobacco Use Types Packs/Day Years [...] on filedocumented in this encounter Care Teams Cut Off Machine Unloader Relationship Specialty Start Date End Date Jarrett Merlos MD PCP - General 06/08/01 03/22/20 Lee Fabian MD [address] [place] [address] PCP - General Internal Medicine 03/23/20 documented as of this encounter
--- OUTSIDE RECORDS SUMMARY | 2024-12-10 15:25 | XMS_ITS | Encounter Summary ---
Author Organization [facility] Address [address] [place] [address] Care Team Providers Care Industrial Arts Teacher Name Role Phone Lee Fabian MD Primary Care Provider Unavail able Vitaliy Fields MD Unavailable [phone] Dallas Camejo MD Unavailable [phone] Rolando Lopez MD Unavailable [phone] Cesar Fair MD Unavailable [phone] Daisy Her PT Unavailable [phone] Encounter Details Date Type Department Care Team (Late st Contact Info) Description 12/07/2024 Scanned Document [facility] [address] [place] [address] [address] Social History Tobacco Use Types Packs/Day Years Used Date Smoking Tobacco: Former Cigarettes 1 29.2 1 977 - 2004 Smokeless Tobacco: Never Alcohol Use Standard Drinks/Week Comments Yes 21 (1 standard drink = 0.6 oz pu re alcohol) [facility] Utilities Answer Date Recorded In the past 12 months has [employer], gas, oil, or water company threatened to [...] any time in the past 12 m [facility], were you homeless or living [...] 2:00 PM EDT [place] [address] Dallas Camejo MD [address] [place] [address] 12/16/2024 8:30 AM EDT Office Visit [facility] Infectious Disease [address] [place] [phone] Ena Mtz MD [address] [place] [address] 12/22/2024 10:00 AM EDT Appointment [facility] Heart & V[facility] [place] [facility] - Echocardiography Laboratory [address] [place] [phone] Ena Mtz MD [address] [place], [place] [phone] documented as of this encounter Visit Diagnoses Not on filedocumented in this encounter Care Teams Industrial Arts Teacher Relationship Specialty Start Date End Date Lee Fabian MD PCP - General Internal Medicine 09/02/24 Vitaliy Fields MD [address] [address] Cardiovascular Disease 09/02/24 Dallas Camejo MD [address] [place] [address] Surgery, Orthopedic 09/02/24 Rolando Lopez MD 2 [facility] Transplant - Ph 14 [place] [address] Physician Nephrology 09/02/24 Cesar Fair MD 85 [facility] [address] [place] [address] Surgery, Cardiac 11/08/24 Daisy Her, PT 85 [facility] [address] [place], [place] [phone] Showroom Sales ConsultantFood And Nutrition Supervisor Medicine and Rehabilitation 11/18/24 documented as of this encounter
--- OUTSIDE RECORDS SUMMARY | 2024-12-10 15:25 | XMS_ITS | Encounter Summary ---
Author Organization [facility] Address [address] [place] [address] Care Team Providers Care Mill Controller Name Role Phone Lee Fabian MD Primary Care Provider [phone] Encounter Details Date Type Department Care Team Description 07/27/2021 Fire Marshal Report Medical Records [address] [place] [address] Sonia Huston MD Social History Tobacco Use Types Packs/Day [...] have Coronavirus / COVID-19? No / Unsure 07/18/2021 9:45 AM EDT documented as of this encounter Plan of Treatment Not on file documented as of this encounter Visit Diagnoses Not on filedocumented in this encounter Care Teams Mill Controller Relationship Specialty Start Date End Date Lee Fabian MD [address] [place] [address] PCP - General Internal Medicine 03/23/20 documented as of this encounter
--- OUTSIDE RECORDS SUMMARY | 2024-12-10 15:25 | XMS_ITS | Encounter Summary ---
Author Organization [facility] Address [address] [place] [address] Care Team Providers Care Grape Pruner Name Role Phone Jarrett Merlos MD Primary Care Provider [facility] Lee Tidwell MD Primary Care Provider [phone] Reason for Visit * Reason Onset Date Comments Faxed Order 11/05/2017 Encounter Details Date Type Department Care Team Description 11/05/2017 Telephone Adult Medicine [address] [address] Jarrett Merlos MD Faxed Order Social History Tobacco Use Types Packs/Day Years Used Date Smoking Tobacco: Former Cigarettes 1 15 Q uit: 10/30/2003 Smokeless Tobacco: Never Alcohol Use Standard Drinks/Week Comments Yes 0 (1 standard drink = 0.6 oz pur e alcohol) 4-5 per week Sex Assigned at Date Recorded Not on file documented as of this encounter Miscellaneous Notes * Telephone Encounter - Christen Shukla - 11/05/2017 9:23 AM EST [facility] sent orders to be reviewed, signed and faxed to [phone] Merlos's bin on a-side documented in this encounter Plan of Treatment Not on file documented as of this encounter Visit Diagnoses Not on filedocumented in this encounter Care Teams Grape Pruner Relationship Specialty Start Date End Date Jarrett Merlos MD PCP - General 06/08/01 03/22/20 Lee Fabian MD [address] [place] [address] PCP - General Internal Medicine 03/23/20 documented as of this encounter
--- OUTSIDE RECORDS SUMMARY | 2024-12-10 15:25 | XMS_ITS | Encounter Summary ---
Author Organization [facility] Address [address] [place] [address] Care Team Providers Care Upholsterer Helper Name Role Phone Lee Fabian MD Primary Care Provider [phone] Encounter Details Date Type Department Care Team Description 12/12/2022 Blockmason Report Medical Records [address] [place] [address] Abstract, Provider Social History Tobacco Use Types [...] on filedocumented in this encounter Care Teams Upholsterer Helper Relationship Specialty Start Date End Date Lee Fabian MD [address] [place], [place] [phone] PCP - General Internal Medicine 03/23/20 documented as of this encounter
--- OUTSIDE RECORDS SUMMARY | 2024-12-10 15:25 | XMS_ITS | Encounter Summary ---
Author Organization [employer] [facility] Address [address] [place] [address] Care Team Providers Care Hide Mill Worker Name Role Phone Lee Fabian MD Primary Care Provider [phone] Encounter Details Date Type Department Care Team Description 11/01/2021 Lounge Car Attendant Report Medical Records [address] [place] [address] Erik Huston Social History Tobacco Use Types [...] on filedocumented in this encounter Care Teams Hide Mill Worker Relationship Specialty Start Date End Date Lee Fabian MD [address] [place] [id number] PCP - General Internal Medicine 03/23/20 documented as of this encounter
--- OUTSIDE RECORDS SUMMARY | 2024-12-10 15:25 | XMS_ITS | Encounter Summary ---
Author Organization [facility] Address [address] [place] [address] Care Team Providers Care Crown Presser Name Role Phone Lee Fabian MD Primary Care Provider [phone] Reason for Visit * Reason Onset Date Comments LAB WORK 03/20/2022 Encounter Details Date Type Department Care Team Description 03/20/2022 Telephone Respiratory and Diabetes Medicaid/ACO Pharmacist [address] [place], [place] [phone] Jemma Da Silva Pharm.D [address] [place] [address] LAB WORK Social History Tobacco Use Types Packs/Day Years [...] suspected to have Coronavirus/COVID-19? No / Unsure 03/19/2022 10:08 AM EDT documented as of this encounter Miscellaneous Notes * Telephone Encounter - Fany Chino.D - 03/20/2022 9:00 AM EDT Called patient to discuss lab work. A1c only improved to 8.4%- was hoping for more based on patient's daily numbers but the a1c could still reflect his higher numbers he was having prior to adding on glipizide. He will continue on his current therapy and f/u in May with a new a1c. Kidney function decreased a bit- encouraged more water. documented in this encounter Plan of Treatment Not on file documented as of this encounter Visit Diagnoses Not on filedocumented in this encounter Care Teams Crown Presser Relationship Specialty Start Date End Date Lee Fabian MD [address] [place] [address] PCP - General Internal Medicine 03/23/20 documented as of this encounter
--- OUTSIDE RECORDS SUMMARY | 2024-12-10 15:25 | XMS_ITS | Encounter Summary ---
Author Organization [facility] Address [address] [place] [address] Care Team Providers Care Plant Floor Automation Manager Name Role Phone Jarrett Merlos MD Primary Care Provider Unavail able Lee Fabian MD Primary Care Provider [phone] Encounter Details Date Type Department Care Team Description 11/26/2011 Release of Information Medical Records [address] [place] [address] Abstract, Provider Social History Tobacco Use Types [...] on filedocumented in this encounter Care Teams Plant Floor Automation Manager Relationship Specialty Start Date End Date Jarrett Merlos MD PCP - General 06/08/01 03/22/20 Lee Fabian MD [address] [place] [address] PCP - General Internal Medicine 03/23/20 documented as of this encounter
--- OUTSIDE RECORDS SUMMARY | 2024-12-10 15:25 | XMS_ITS | Encounter Summary ---
Author Organization [employer] [facility] Address [address] [place] [address] Care Team Providers Care Ground Crew Supervisor Name Role Phone Jarrett Merlos MD Primary Care Provider Unavail able Lee Fabian MD Primary Care Provider [phone] Encounter Details Date Type Department Care Team Description 11/21/2017 Asbestos Abatement Technician Report Medical Records [address] [place] [address] Charles Salazra DPM Social History Tobacco Use Types Packs/Day [...] on filedocumented in this encounter Care Teams Ground Crew Supervisor Relationship Specialty Start Date End Date Jarrett Merlos MD PCP - General 06/08/01 03/22/20 Lee Fabian MD [address] [place] [address] PCP - General Internal Medicine 03/23/20 documented as of this encounter
--- OUTSIDE RECORDS SUMMARY | 2024-12-10 15:25 | XMS_ITS | Encounter Summary ---
Author Organization [facility] Address [address] [place] [address] Care Team Providers Care Claims Sorter Name Role Phone Jarrett Merlos MD Primary Care Provider Unavail able Lee Fabian MD Primary Care Provider [phone] Encounter Details Date Type Department Care Team Description 10/28/2011 Eye Advance Agent Report Medical Records [address] [place] [address] Mary Akbar Social History Tobacco Use Types Packs/Day Years [...] on filedocumented in this encounter Care Teams Claims Sorter Relationship Specialty Start Date End Date Jarrett Merlos MD PCP - General 06/08/01 03/22/20 Lee Fabian MD [address] [place] [address] PCP - General Internal Medicine 03/23/20 documented as of this encounter
--- OUTSIDE RECORDS SUMMARY | 2024-12-10 15:25 | XMS_ITS | Encounter Summary ---
Author Organization [facility] Address [address] [place] [address] Care Team Providers Care Supervisor [employer] Name Role Phone Jarrett Merlos MD Primary Care Provider Unavail able Lee Fabian MD Primary Care Provider [phone] Encounter Details Date Type Department Care Team Description 10/24/2017 Customer Resource Specialist Report Medical Records [address] [place] [address] Charles Salazar DPM Social History Tobacco Use [...] on filedocumented in this encounter Care Teams Supervisor [employer] Relationship Specialty Start Date End Date Jarrett Merlos MD PCP - General 06/08/01 03/22/20 Lee Fabian MD [address] [place] [address] PCP - General Internal Medicine 03/23/20 documented as of this encounter
--- OUTSIDE RECORDS SUMMARY | 2024-12-10 15:25 | XMS_ITS | Encounter Summary ---
Author Organization [facility] Address [address] [place] [address] Care Team Providers Care Manager Hospital Name Role Phone Lee Fabian MD Primary Care Provider [phone] Reason for Visit * Reason Onset Date Comments Faxed Order 08/18/20[facility] Order Encounter Details Date Type Department Care Team Description 08/18/2023 Telephone Adult Medicine [address] [address] Lee Fabian MD [address] [place] [address] Faxed Order ([facility] Order ) Social History Tobacco Use Types Packs/Day Years Used Date Smoking Tobacco: Former Cigarettes 1 15 Q uit: 10/30/2003 Smokeless Tobacco: Never Alcohol Use Standard Drinks/Week Comments Yes 12 (1 standard drink = 0.6 oz pu re alcohol) 12 pack Sex Assigned at Date Recorded Not on file documented as of this encounter Miscellaneous Notes * Telephone Encounter - Christen Nicole - 08/18/2023 9:03 AM EST Faxed order received from [facility] Physicians Order. Orders placed in Dr. Caren cummins. Please sign and return when completed to . documented in this encounter Plan of Treatment Not on file documented as of this encounter Visit Diagnoses Not on filedocumented in this encounter Care Teams Manager Hospital Relationship Specialty Start Date End Date Lee Fabian MD [address] [place] [address] PCP - General Internal Medicine 03/23/20 documented as of this encounter
--- OUTSIDE RECORDS SUMMARY | 2024-12-10 15:25 | XMS_ITS | Encounter Summary ---
Author Organization [facility] Address [address] [place] [address] Care Team Providers Care Locker Plant Attendant Name Role Phone Lee Fabian MD Primary Care Provider Unavail able Vitaliy Fields MD Unavailable [phone] Dallas Camejo MD Unavailable Rolando Lopez MD Unavailable [phone] Cesar Fair MD Unavailable [phone] Daisy Her PT Unavailable Reason for Referral * Cardiovascular Test (Routine) - Pending Review Specialty Diagnoses / Procedures Referred By Contac t Referred To Contact Diagnoses Complete AV block (HCC) Presence of permanent cardiac pacemaker Bacteremia Procedures Cardiac Implantable Electronic Dev Eval Gretel Hinds, ROUTE CARRIER [address] [place] [address] Referral ID Status Reason Start Date Expiration Date V isits Requested Visits Authorized [id number] Pending Review 11/17/2024 11/18/2025 1 1 * Cardiovascular Test (Routine) - Pending Review Specialty Diagnoses / Procedures Referred By Contac t Referred To Contact Diagnoses Presence of permanent cardiac pacemaker Procedures Cardiac Implantable Electronic Dev Eval 273-Days Tammie Reyna APRN [address] [facility] [place] [address] [place] [address] Referral ID Status Reason Start Date Expiration Date V isits Requested Visits Authorized [id number] Pending Review 12/06/2024 12/07/2025 1 1 * Cardiovascular Test (Routine) - Pending Review Specialty Diagnoses / Procedures Referred By Contac t Referred To Contact Diagnoses Presence of permanent cardiac pacemaker Procedures Cardiac Implantable Electronic Dev Eval 182-Days Tammie Reyna APRN [address] [facility] [place] [address] [place] [address] Referral ID Status Reason Start Date Expiration Date V isits Requested Visits Authorized [id number] Pending Review 12/06/2024 12/07/2025 1 1 * Cardiovascular Test (Routine) - Pending Review Specialty Diagnoses / Procedures Referred By Contac t Referred To Contact Diagnoses Presence of permanent cardiac pacemaker Procedures Cardiac Implantable Electronic Dev Eval 91-Days CAR Tammie Reyna APRN [address] [facility] [place] [address] [place] [address] Referral ID Status Reason Start Date Expiration Date V isits Requested Visits Authorized [id number] Pending Review 12/06/2024 12/07/2025 1 1 * Cardiovascular Test (Routine) - Pending Review Specialty Diagnoses / Procedures Referred By Contac t Referred To Contact Diagnoses Presence of permanent cardiac pacemaker Procedures Cardiac Implantable Electronic Dev Eval Tammie Reyna APRN [address] [facility] [place] [address] [place] [address] Referral ID Status Reason Start Date Expiration Date V isits Requested Visits Authorized [id number] Pending Review 12/06/2024 12/07/2025 1 1 Reason for Visit * Cardiovascular Test (Routine) - Pending Review Specialty Diagnoses / Procedures Referred By [place] sewell Referred To Contact Diagnoses Complete AV block (HCC) Presence of permanent cardiac pacemaker Bacteremia Procedures Cardiac Implantable Electronic Dev Eval Gretel Hinds, ROUTE CARRIER [address] [address] Referral ID Status Reason Start Date Expiration Date V isits Requested Visits Authorized [id number] Pending Review 11/17/2024 11/18/2025 1 1 Encounter Details Date Type Department Care Team (Latest Contact Info) Description 12/07/2024 1:30 PM EDT - 12/07/2024 11:59 PM EDT Hospital Encounter [facility] Heart & Vascular [place] - Electrophysiology [address] [place] [address] Gretel Hinds, ROUTE CARRIER [address] [phone] Discharge Disposition: Home or Self Care Social History Tobacco Use Types Packs/Day Years Used Date Smoking Tobacco: Former Cigarettes 1 29.2 1 977 - 2004 Smokeless Tobacco: Never Alcohol Use Standard Drinks/Week Comments Yes 21 (1 standard drink = 0.6 oz pu re alcohol) [facility] Utilities Answer Date Recorded In the past 12 months has [employer], oil, or water [employer] threatened to shut off services in your [...] any time in the past 12 m [facility], were you homeless or living in a prison (including now)? No 11/03/2024 Sex and Gender Information Value Date Recorded Sex Assigned at Male 09/03/2024 12:21 PM EST Gender Identity Male 09/03/2024 12:21 PM EST Sexual Orientation Heterosexual (straight) 09/10 7:58 AM EST documented as of this encounter Medications at Time of Discharge [...] mg total) by mouth every morning. 10/20/2023 folic acid (FOLVITE) 1 MG tabletIndications:Endoc arditis Take 1 tablet (1 mg total) by mouth daily. 30 tablet 11/25/2024 12/25/2024 glipiZIDE (GLUCOTROL) 2.5 mg tablet Take 1 tablet (2.5 mg total) by mouth 2 times a day. 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 Max Daily Amount: 8 mg 28 tablet 11/30/2024 Jardiance 25 MG tablet Take 1 tablet [...] morning with breakfast. 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 28 tablet 11/30/2024 metoPROLOL TARTRATE (LOPRESSOR) 50 MG tablet Take 1 tablet (50 mg total) by mouth 2 times a day. nicotine (NICODERM CQ) 7 MG/24HR patch Place 1 patch on the skin daily. 05/24/2024 oxyCODONE (ROXICODONE) 5 MG immediate release tabletIndications:Other chronic osteomyelitis of foot, unspecified laterality ([facility]) Take 1-2 tablets (5-10 mg total) by [...] times a day. 90 capsule 11/25/2024 12/25/2024 SUPPLY DME MISCIndications:Below-k nee amputation of left lower extremity, initial encounter ([facility]) BELOW KNEE PROSTHESIS S/P LEFT BKA 11/05/24 1 each 12/01/2024 documented as of this encounter Progress Notes * Sri Pena RN - 12/07/2024 1:30 PM EDT Attached media from the original note were not included. OBSERVATIONS: One month s/p Micra AV pacemaker evaluation performed. Patient feeling much better, asymptomatic. Battery longevity >10 years. AV synchrony 41.4%. AUTO HAULAWAY DRIVER only 58.5%. Normal pacemaker function. Discussed with Erin Reyna APRN, no changes made. Pacemaker extraction incision C/D/I. PRESENTING RHYTHM: AM-AUTO HAULAWAY DRIVER/AUTO HAULAWAY DRIVER @ 60 bpm INHIBITED RHYTHM: No ventricular response greater than 40 bpm PATIENT EDUCATION: Ongoing education for: device function, home monitor function, evaluation results. CHANGES MADE THIS SESSION: None RECOMMENDATIONS: Continue routine monitoring by [facility] - Dr. Fields. Sri Pena RN documented in this encounter Plan of Treatment Upcoming Encounters Date Type Department Care Team (Late st Contact Info) Description 12/14/2024 2:00 PM EDT [facility] Visit [facility] [address] [address] Dallas Camejo MD [address] [place] [address] 12/16/2024 8:30 AM EDT Office Visit Infectious Disease [address] [place] [phone] Ena Mtz MD [address] [place] [address] 12/22/2024 10:00 AM EDT Appointment [facility] Heart & Vascular [place] at - Echocardiography Laboratory [address] [place] [phone] Ena Mtz MD [address] [place] [address] Scheduled Orders Name Type Priority Associated Diagnoses Orde r Schedule Cardiac Implantable Electronic Dev Eval Cardiac Services Routine Presence of permanent cardiac pacemaker Expected: 12/06/2024, Expires: 01/06/2027 Cardiac Implantable Electronic Dev Eval 91-Days CAR Cardiac Services Routine Presence of permanent cardiac pacemaker Expected: 03/07/2025, Expires: 01/06/2027 Cardiac Implantable Electronic Dev Eval 182-Days Cardiac Services Routine Presence of permanent cardiac pacemaker Expected: 06/07/2025, Expires: 01/06/2027 Cardiac Implantable Electronic Dev Eval 273-Days Cardiac Services Routine Presence of permanent cardiac pacemaker Expected: 09/07/2025, Expires: 01/06/2027 documented as of this encounter Procedures Procedure Name Priority Date/Time Associated Diagnosis Comments PM SINGLE LEAD EVAL WITH PROGRAM,[id number] Routine 12/07/2024 2:14 PM EDT Complete AV block (HCC) Presence of permanent cardiac pacemaker Bacteremia documented in this encounter Results * PM SINGLE LEAD EVAL WITH PROGRAM,[id number] (12/07/2024 2:14 PM EDT) Date Time Interrogation Session ,,[phone] PACEART Implantable Pulse Generator Crm Solution Architect [employer] PACEART Implantable Pulse Generator Model [id number] Micra AV2 PACEART Implantable Pulse Generator Serial Number [id number] PACEART Implantable Pulse Generator Type Pacemaker PACEART [...] last reset 99.93 % PACEART Otf Statistic AUTO HAULAWAY DRIVER Percent 99.97 % PACEART Otf Statistic VS Percent 0.03 % PACEART Anatomical Region Laterality Modality Cardiac Device 12/07/2024 1:40 PM EDT Narrative 12/09/2024 11:59 AM EDT OBSERVATIONS: One month s/p Micra AV pacemaker evaluation performed. Patient feeling much better, asymptomatic. Battery longevity >10 years. AV synchrony 41.4%. AUTO HAULAWAY DRIVER only 58.5%. Normal pacemaker function. Discussed with Erin Reyna APRN, no changes made. Pacemaker extraction incision C/D/I. PRESENTING RHYTHM: AM-AUTO HAULAWAY DRIVER/AUTO HAULAWAY DRIVER @ 60 bpm INHIBITED RHYTHM: No ventricular response greater than 40 bpm PATIENT EDUCATION: Ongoing education for: device function, home monitor function, evaluation results. CHANGES MADE THIS SESSION: None RECOMMENDATIONS: Continue routine monitoring by [facility] - Dr. Fields. Sri Becky RN Gretel Mcknight Lizet PICKARDN CV CARDIAC SERVIC ES ORDERABLES documented in this encounter Visit Diagnoses Diagnosis Presence of permanent cardiac pacemaker- Primary Complete AV block (HCC) Atrioventricular block, complete Bacteremia documented in this encounter Care Teams Locker Plant Attendant Relationship Specialty Start Date End Date Lee Fabian MD PCP - General Internal Medicine 09/02/24 Vitaliy Fields MD [address] [address] Cardiovascular Disease 09/02/24 Dallas Camejo MD [address] [place] [address] Surgery, Orthopedic 09/02/24 Rolando Lopez MD [address] Transplant - Ph 14 [place] [address] Physician Nephrology 09/02/24 Cesar Fair MD 85 [facility] [address] [place] [place] [id number] Surgery, Cardiac 11/08/24 Daisy Her, PT 85 [facility] [address] [place] [phone] Production Engineer TrackLiquid Compounder Medicine and Rehabilitation 11/18/24 documented as of this encounter
--- OUTSIDE RECORDS SUMMARY | 2024-12-10 15:25 | XMS_ITS | Encounter Summary ---
Author Organization [facility] Address [address] [place] [address] Care Team Providers Care Batter Depositor Name Role Phone Lee Fabian MD Primary Care Provider [phone] Encounter Details Date Type Department Care Team Description 09/13/2021 Video Game Maker Report Medical Records [address] [place] [address] Erik Huston Social History Tobacco Use Types [...] on filedocumented in this encounter Care Teams Batter Depositor Relationship Specialty Start Date End Date Lee Fabian MD [address] [place] [address] [id number] PCP - General Internal Medicine 03/23/20 documented as of this encounter
--- OUTSIDE RECORDS SUMMARY | 2024-12-10 15:25 | XMS_ITS | Encounter Summary ---
Author Organization [facility] Address [address] [place] [address] Care Team Providers Care Inspector Wire Rope Name Role Phone Jarrett Merlos MD Primary Care Provider Unavail able Lee Fabian MD Primary Care Provider [phone] Encounter Details Date Type Department Care Team Description 10/24/2017 Parachute/Combatant Diver Officer Report Medical Records [address] [place] [address] Charles Salazar DPM Social History Tobacco Use [...] on filedocumented in this encounter Care Teams Inspector Wire Rope Relationship Specialty Start Date End Date Jarrett Merlos MD PCP - General 06/08/01 03/22/20 Lee Fabian MD [address] [place] [address] PCP - General Internal Medicine 03/23/20 documented as of this encounter
--- OUTSIDE RECORDS SUMMARY | 2024-12-10 15:25 | XMS_ITS | Encounter Summary ---
Author Organization [facility] Address [address] [place] [address] Care Team Providers Care Umbrella Cutter Name Role Phone Jarrett Merlos MD Primary Care Provider Unavail able Lee Fabian MD Primary Care Provider [phone] Encounter Details Date Type Department Care Team Description 11/10/2017 Home Health Certification Medical Records [address] [place] [id number] Abstract, Provider Social History Tobacco Use Types [...] on filedocumented in this encounter Care Teams Umbrella Cutter Relationship Specialty Start Date End Date Jarrett Merlos MD PCP - General 06/08/01 03/22/20 Lee Fabian MD [address] [place] [id number] PCP - General Internal Medicine 03/23/20 documented as of this encounter
--- OUTSIDE RECORDS SUMMARY | 2024-12-10 15:25 | XMS_ITS ---
Care Plan Created on: December 10, 2024 Luca Crowe : 1960 Sex: Male Author Organization [facility] Address [address] [place] [address] Phone Care Team Providers Care Traffic Signal Mechanic Name Role Phone Lee Fabian MD Primary Care Provider [phone] Active Problems Problem Noted Date Diagnosed Date [...]
--- OUTSIDE RECORDS SUMMARY | 2024-12-10 15:25 | XMS_ITS | Encounter Summary ---
Author Organization [facility] Address [address] [place] [address] Care Team Providers Care Office Clinician Name Role Phone Lee Fabian MD Primary Care Provider [phone] Encounter Details Date Type Department Care Team Description 07/08/2023 Financial Center Manager Report Medical Records [address] [place] [address] Roberto Cee [address] [place] [address] Social History Tobacco Use Types Packs/Day Years [...] suspected to have Coronavirus/COVID-19? No / Unsure 07/10/2023 1:55 PM EDT documented as of this encounter Plan of Treatment Not on file documented as of this encounter Visit Diagnoses Not on filedocumented in this encounter Care Teams Office Clinician Relationship Specialty Start Date End Date Lee Fabian MD [address] [place] [address] [id number] PCP - General Internal Medicine 03/23/20 documented as of this encounter
--- OUTSIDE RECORDS SUMMARY | 2024-12-10 15:25 | XMS_ITS | Encounter Summary ---
Author Organization [facility] Address [address] [place] [address] Care Team Providers Care Electric Plater Name Role Phone Jarrett Merlos MD Primary Care Provider Unavail Lee Tidwell MD Primary Care Provider [phone] Reason for Visit * Reason Onset Date Comments Testing 10/17/2011 Request for Auth orization Encounter Details Date Type Department Care Team Description 10/17/2011 Refill Adult Medicine [address] [address] Anna Richardson PA-C Testing (Request for Authorization) Social History Tobacco Use Types Packs/Day Years Used Date Smoking Tobacco: Former Cigarettes 1 15 Q uit: 10/30/2003 Smokeless Tobacco: Never Alcohol Use Standard Drinks/Week Comments Yes 0 (1 standard drink = 0.6 oz pur e alcohol) 4-5 per week Sex Assigned at Date Recorded Not on file documented as of this encounter Miscellaneous Notes * Telephone Encounter - Anna Richardson PA-C - 10/17/2011 11:47 AM EST Thank you. He will continue to see Chiro and I have cc'd Dr. Levin on this telephone encounter as FYI. * Telephone Encounter - Jackie Bravo - 10/17/2011 10:30 AM EST I will resubmit request along with any new office notes,tests,etc. * Telephone Encounter - Anna Richardson PA-C - 10/17/2011 10:03 AM EST It is my understanding that they may re-consider this if he continues to have symptoms after 6 weeks, per my discussion with their reviewer. Is it possible to re-submit after another 2 weeks which will be 6 weeks from his initial injury or do I need to re-order this in 2 weeks? * Telephone Encounter - Jackie Bravo - 10/17/2011 9:47 AM EST The W/C decision to deny MRI of c/spine was upheld after our request for appeal . Mr Crowe can request authorization from his health insurance if he chooses. Thanks documented in this encounter Plan of Treatment Not on file documented as of this encounter Visit Diagnoses Not on filedocumented in this encounter Care Teams Electric Plater Relationship Specialty Start Date End Date Jarrett Merlos MD PCP - General 06/08/01 03/22/20 Lee Fabian MD [address] [place] [id number] PCP - General Internal Medicine 03/23/20 documented as of this encounter
--- OUTSIDE RECORDS SUMMARY | 2024-12-10 15:25 | XMS_ITS | Encounter Summary ---
Author Organization [facility] Address [address] [place] [address] Care Team Providers Care Client Account Manager Name Role Phone Lee Fabian MD Primary Care Provider Unavail able Vitaliy Fields MD Unavailable Dallas Camejo MD Unavailable Rolando Lopez MD Unavailable Cesar Fair MD Unavailable Daisy Her PT Unavailable [phone] Encounter Details Date Type Department Care Team (Late st Contact Info) Description 12/07/2024 Orders Only [facility] at [address] [address] Ena Mtz MD [address] [place] [address] [id number] Social History Tobacco Use Types Packs/Day Years Used Date Smoking Tobacco: Former Cigarettes 1 29.2 1 977 - 2004 Smokeless Tobacco: Never Alcohol Use Standard Drinks/Week Comments Yes 21 (1 standard drink = 0.6 oz pu re alcohol) [facility] Utilities Answer Date Recorded In the past 12 months has [employer] electric, gas, oil, or water company threatened [...] 2:00 PM EDT Office [facility] [place] [address] Dallas Camejo MD [address] [place] [address] 12/16/2024 8:30 AM EDT Office Visit [facility] Infectious Disease [address] [place] [id number] Ena Mtz MD [address] [place], [place] [phone] 12/22/2024 10:00 AM EDT Appointment [facility] Heart & Vascular [place] [facility] - Echocardiography Laboratory [address] [place] [address] Ena tMz MD [address] [place] [address] [phone] documented as of this encounter Procedures Procedure Name Priority Date/Time Associated Diagnosis Comments LAB RESULT Routine 12/07/2024 1:08 PM EDT LAB RESULT Routine 12/07/2024 1:06 PM EDT documented in this encounter Results * LAB RESULT (12/07/2024 1:08 PM EDT) Negrito Champion MD HX AMB PROCEDU RES * LAB RESULT (12/07/2024 1:06 PM EDT) Ena Mtz MD HX AMB PROCEDURE S documented in this encounter Visit Diagnoses Not on filedocumented in this encounter Care Teams Client Account Manager Relationship Specialty Start Date End Date Lee Fabian MD PCP - General Internal Medicine 09/02/24 Vitaliy Fields MD [address] [place] [id number] Cardiovascular Disease 09/02/24 Dallas Camejo MD [address] [place] [address] Surgery, Orthopedic 09/02/24 Rolando Lopez MD [address] Transplant - Ph [address] [place] [address] Physician Nephrology 09/02/24 Cesar Fair MD 85 [facility] [address] [place] [address] [phone] Surgery, Cardiac 11/08/24 Daisy Her, PT 85 [facility] [address] [place] [address] [phone] [employer] Derrick OperatorJr. Systems Administrator Medicine and Rehabilitation 11/18/24 documented as of this encounter
--- OUTSIDE RECORDS SUMMARY | 2024-12-10 15:25 | XMS_ITS | Clinical Summary ---
Author Organization [facility] Address [address] [place] [address] Phone Care Team Providers Care Program Development Manager Name Role Phone Lee Fabian MD Primary Care Provider [phone] Allergies Active Allergy Reactions Criticality Noted Date [...] day at the same time. 4 Active donepeziL (ARICEPT) 10 mg tablet Take [...] 180 each 3 4 08/31/20 25 Active oxyCODONE (ROXICODONE) 5 mg immediate release tablet Take 1 tablet (5 mg total) by mouth every 6 (six) hours if needed for moderate pain. 4 Active buPROPion SR (WELLBUTRIN SR) 150 mg 12 hr tablet Take 1 tablet (150 mg total) by mouth 2 (two) times a day. Do not crush, chew, or split. 60 each 1 5 12/29/19 25 Active amLODIPine (NORVASC) 5 mg tablet Take 1 tablet (5 mg total) by mouth 1 (one) time each day. 5 Active folic acid (FOLVITE) 1 mg tablet Take 1 tablet (1,000 mcg total) by mouth 1 (one) time each day. Active gabapentin (NEURONTIN) 100 mg capsule Take 1 capsule (100 mg total) by mouth 3 (three) times a day. Active pravastatin (PRAVACHOL) 20 mg tablet Take 1 tablet (20 mg total) by mouth 1 (one) time each day. 12/07/19 25 Discontinue d(Discontin ued by another clinician) doxycycline (MONODOX) 100 mg capsule Take 1 [...] a day for 14 days. 28 each 5 11/12/19 25 Active Problems Problem Noted Date Diagnosed Date [...] Encounters Date Type Department Care Team Description 12/08/2024 Telephone Internal Medicine - [facility] [address] [place], [place] [phone] Todd Stacy MA Fitting for DME 12/06/2024 10:30 AM EDT Office Visit Internal Medicine - [address] [phone] Lee Fabian MD Type 2 diabetes mellitus with foot ulcer, unspecified whether halfway insulin use ([facility]) (Primary Dx); Memory impairment; Hearing loss, unspecified hearing loss type, unspecified laterality; Other cerebral infarction ([facility]) 12/03/2024 [facility] [phone] Sara Valero RN glucose (Call from [facility] Crit[facility]) 12/02/2024 [facility] [phone] Lee Fabian MD Faxed Order ([facility]) 12/02/2024 Telephone Internal Medicine - [address] [phone] Lee Fabian MD Faxed Order ([facility] ) 2024 [facility] [phone] Lee Fabian MD Faxed Order ([facility] ) 2024 [facility] [address] [place] [address] Lee Fabian MD Hospital Follow-up 11/26/2024 [facility] [address] [place] [address] Lee Fabian MD Faxed Order ([facility] ) 11/19/2024 Telephone Infectious Disease - [address] [phone] Marlin Keene, RN 11/12/2024 Telephone Internal Medicine - [address] [phone] Lee Fabian MD Request For Order(s) (Driss KEITAA ) 11/11/2024 Billing Patient Not Present Internal Medicine - [address] [phone] Lee Fabian MD Encounter for change or removal of surgical wound dressing (Primary Dx); Encounter for surgical aftercare following surgery on the skin and subcutaneous tissue; Type 2 diabetes mellitus with other specified complication, unspecified whether university demonstrator insulin use ([facility]); Other acute osteomyelitis, left ankle and foot ([facility]); Type 2 diabetes mellitus with diabetic peripheral angiopathy with gangrene, unspecified whether halfway insulin use ([facility]); 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 ([facility]); Other specified bacterial agents as the cause of diseases classified elsewhere; Type 2 diabetes mellitus with foot ulcer, unspecified whether university demonstrator insulin use ([facility]); Non-pressure chronic ulcer of right heel and midfoot with fat layer exposed ([facility]); Type 2 diabetes mellitus with diabetic neuropathic arthropathy, unspecified whether university demonstrator insulin use ([facility]) 11/05/2024 Telephone Internal Medicine - [address] [phone] Lee Fabian MD Faxed Order (Driss KEITAA (Cert/POC 10/31-12/29)) 11/05/2024 [facility]phone [facility] [phone] Lee Fabian MD Faxed Order (Driss BLACKMAN (Transfer Summary)) 11/04/2024 [facility] [phone] Lee Fabian MD Faxed Order 10/29/2024 3:15 PM EST Office Visit Internal Medicine - [facility] [address] [place] [address] Lee Fabian MD Type 2 diabetes mellitus with foot ulcer, unspecified whether halfway insulin use (CMS/HCC) (Primary Dx); Nicotine abuse; Iron deficiency anemia due to chronic blood loss 10/27/2024 11:00 AM EST Office Visit [facility] [address] [place] [address] [phone] Roberto Murguia PA Type 2 diabetes mellitus [...] hypertension 10/20/2024 11:00 AM EST Office Visit [facility] [address] [place] [phone] Roberto Murguia PA Type 2 diabetes mellitus [...] of insulin (CMS/HCC); Peripheral vascular disease, unspecified (CMS/HCC) 10/18/2024 Telephone [facility] [address] [place] [phone] Beverly Hyatt LPN Clearance for Hyperbaric treatment 10/18/2024 [facility] [address] [place] [phone] Beverly Hyatt, POLICE JUSTICE Vascular status call back 10/18/2024 [facility] [address] [place] [address] [phone] Beverly Hyatt, POLICE JUSTICE Bilateral vascular status for hyperbaric treatment 10/18/2024 Telephone [facility] [address] [place] [address] [phone] Beverly Hyatt LPN 10/18/2024 Telephone Vascular Surgery - [place] [address] [place] [phone] Toni Rae MD provider call back 10/15/2024 9:40 AM EST Consult Gastroenterology - [place] [address] [facility] [address] [place] [phone] Vishal Oconnell PA Elevated liver enzymes (Primary Dx); Non-healing non-surgical wound; Diabetes 1.5, managed as type 2 ([facility]); Atrial fibrillation, unspecified type ([facility]) 10/13/2024 11:00 AM EST Office Visit [facility] [address] [place] [phone] Roberto Murguia PA Type 2 diabetes mellitus with foot ulcer (CODE) ([facility]) (Primary Dx); Abrasion of anterior left lower leg, subsequent encounter; Non-healing surgical wound, subsequent encounter; Non-pressure chronic ulcer of other part of right foot with fat layer exposed ([facility]/HCC); Non-pressure chronic ulcer of other part of left foot limited to breakdown of skin ([facility]/HCC); Non-pressure chronic ulcer of other part of left foot with unspecified severity ([facility]/HCC); 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 ([facility]); Non-pressure chronic ulcer left lower leg, limited to breakdown skin ([facility]); Charcot's joint, right ankle and foot; Type 2 diabetes mellitus with diabetic peripheral angiopathy without gangrene, without long-term current use of insulin ([facility]); Peripheral vascular disease, unspecified ([facility]); Non-pressure chronic ulcer of left lower leg with fat layer exposed ([facility]) 10/12/2024 Billing Patient Not Present Internal Medicine - [address] [phone] Lee Fabian MD Type 2 diabetes mellitus with other specified complication, unspecified whether halfway insulin use ([facility]) (Primary Dx); Other acute osteomyelitis, left ankle and foot ([facility]); Type 2 diabetes mellitus with diabetic peripheral angiopathy without gangrene, unspecified whether university demonstrator insulin use ([facility]); 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 ([facility]); Other specified bacterial agents as the cause of diseases classified elsewhere; Type 2 diabetes mellitus with diabetic neuropathic arthropathy, unspecified whether university demonstrator insulin use ([facility]); Charcot's joint, right ankle and foot; Paroxysmal atrial fibrillation ([facility]); Hypertensive heart and chronic kidney disease with heart failure and stage 1 through stage 4 chronic kidney disease, or unspecified chronic kidney disease ([facility]); Chronic diastolic (congestive) heart failure ([facility]) 10/11/2024 10:30 AM EST Office Visit Internal Medicine - [address] [phone] Lee Fabian MD TABITHA (acute kidney injury) ([facility]) (Primary Dx); Nicotine abuse; Iron deficiency anemia due to chronic blood loss; Fall in home, initial encounter 10/07/2024 11:15 AM EST Office Visit Internal Medicine [address] [place] [phone] Bib Yadav, MARIAELENA Impacted cerumen of right ear (Primary Dx) 10/06/2024 11:00 AM EST Office Visit [facility] [address] [place] [phone] Roberto Murguia PA Type 2 diabetes mellitus with foot ulcer (CODE) ([facility]/HCC) (Primary Dx); Non-healing surgical wound, subsequent encounter; [...] with bone involvement without evidence of necrosis ([facility]); Charcot's joint, right ankle and foot; Type 2 diabetes mellitus with diabetic peripheral angiopathy without gangrene, unspecified whether halfway insulin use (CMS/[facility]); Peripheral vascular disease, unspecified ([facility]); Non-pressure chronic ulcer left lower leg, limited to breakdown skin ([facility]/HCC) 10/04/2024 Telephone Internal Medicine - [facility] [address] [place] [address] Lee Fabian MD vna 10/01/2024 [facility] [address] [place] [address] Lee Fabian MD Request For Order(s) (Driss BLACKMAN) 09/21/2024 Telephone Internal Medicine - [facility] [address] [place] [address] Lee Fabian MD faxed order (Driss keitaa tracking #[id number]) 09/19/2024 11:18 PM EST - 09/20/2024 3:13 AM EST Emergency [facility] [address] [place] [phone] Gaston Hendrix MD Bleeding from wound (Primary Dx); Renal insufficiency; Anemia, unspecified type Discharge Disposition: Home or Self Care 09/17/2024 Telephone Internal Medicine - [facility] [address] [place] [address] [place] [phone] Lee Fabian MD vna 09/14/2024 Telephone [facility] [address] [place] [phone] Meli Kaufman RN from Last 3 Months Immunizations Name Administration Dates Next Due Influenza Quadravalent, MDCK , 0.5ml, preservative free (Flucelvax) 6mo and older 07/18/2022,06/26/2020 Influenza Quadravalent, MDCK , 0.5ml, with preservative (Flucelvax) 6mo and older 06/17/2021,07/08/2018 Influenza trivalent, 0.5mL, preservative free (Fluarix; FluLaval; Fluzone) ages 6mo and older (Afluria) 3 years and older 06/22/2024,05/20/2017,06/04/2016,06/18,06/19/2010 Influenza, Unspecified 07/08/2023,05/20/2017 Rewarding Return SARS-CoV-2 COVID-19, mRNA, LNP-S, preservative free 07/08/2023,08/15/2021 [...] Pulse 60 12/06/2024 10:14 AM EDT Temperature 37.3 ??C (99.1 ??F) 10/27/2024 10:[address] Respiratory Rate 18 10/27/2024 10:52 AM EST Oxygen Saturation 94% 10/27/2024 10:52 AM EST Inhaled Oxygen Concentration - - Weight 104 kg (230 lb) 10/15/2024 9:56 AM EST Height 190.5 cm (6' 3 ) 10/15/2024 9:56 AM EST Body Mass Index 28.75 10/15/2024 9:56 AM EST Plan of Treatment Health Maintenance Due Date Last Done Comments [...] of smoking on wound No Susan Peralta, RN Patient and Caregiver Understand Wound Care Education Care Plan Education needed related to ulceration/compr omised skin integrity. No Susan Peralta RN Medical Devices Implanted Type Area Community Service Representative Device Identifier Shelf Expiration Date Model / [...] diabetic peripheral angiopathy without gangrene, unspecified whether university demonstrator insulin use (CMS/HCC) Peripheral vascular disease, unspecified (CMS/HCC) DEBRIDEMENT Routine 10/06/2024 11:00 AM EST Type 2 diabetes mellitus with foot ulcer (CODE) (CMS/HCC) Abrasion of anterior left lower leg, subsequent encounter Non-pressure chronic ulcer of other part of left foot limited to breakdown of skin (CMS/HCC) Type 2 diabetes mellitus with diabetic peripheral angiopathy without gangrene, unspecified whether halfway insulin use (CMS/HCC) Peripheral vascular disease, unspecified (CMS/HCC) DEBRIDEMENT Routine 10/06/2024 11:00 AM EST Type 2 diabetes mellitus with foot ulcer (CODE) (CMS/HCC) Non-pressure chronic ulcer of other part of right foot with fat layer exposed (CMS/HCC) Type 2 diabetes mellitus with diabetic peripheral angiopathy without gangrene, unspecified whether halfway insulin use (CMS/HCC) Peripheral vascular disease, unspecified (CMS/HCC) DEBRIDEMENT Routine 10/06/2024 11:00 AM EST Type 2 diabetes mellitus with foot ulcer (CODE) (CMS/HCC) Non-pressure chronic ulcer of other part of right foot with fat layer exposed (CMS/HCC) Type 2 diabetes mellitus with diabetic peripheral angiopathy without gangrene, unspecified whether university demonstrator insulin use (CMS/HCC) Peripheral vascular disease, unspecified [...] ??Infection and pain ??Alternatives discussed: ??Delayed treatment [place] protocol: ??Procedure explained and questions answered to [...] Staphylococcus aureus(A) PATTI 10/30/2024 12:50 PM EST [facility] ([facility]) [facility] Comment: The organism value for this result has been updated. These results have been appended to the previously preliminary verified report. Edited result: Previously reported as Staphylococcus aureus on 10/29/2024 at 1226 EST. Culture, Wound Enterococcus faecalis(A) PATTI 10/30/2024 12:50 PM [facility] Comment: The organism value for this result has been updated. These results have been appended to the previously preliminary verified report. Edited result: Previously reported as Gram Positive Cocci on 10/29/2024 at 1226 EST. Culture, Wound Vancomycin resistant Enterococcus faecium(A) PATTI 10/30/2024 12:50 PM [facility] Comment: The organism value for this result has been updated. These results have been appended to the previously preliminary verified report. Edited result: Previously reported as Gram Positive Cocci on 10/30/2024 at 1235 EST. Culture, Wound Corynebacterium species(A) PATTI 10/30/2024 12:50 PM [facility] Comment: The organism value for this result has been updated. These results have been appended to the previously preliminary verified report. Gram Stain Result Moderate Polymorphonuclear leukocytes(A) 10/30/2024 12:50 PM [facility] Gram Stain Result Many Gram positive cocci in pairs and clusters(A) 10/30/2024 12:50 PM [facility] Gram Stain Result Few Gram negative bacilli(A) 10/30/2024 12:50 PM [facility] Gram Stain Result No epithelial cells seen(A) 10/30/2024 12:50 PM [facility] Swab Structure of left foot [...] Enterococcus faecium Vancomycin PATTI >=32 ug/ml: Resistant us Roberto PATTON LAB MICROBIOLOGY - GENERAL ORDERABLES Final Result Performing Organization Address City/State/[facility] Co de Phone Number [facility] ([facility]) [facility] [address] [place] [address], * Debridement Diabetic Ulcer Left Toe D5, [...] ??Infection and pain ??Alternatives discussed: ??Delayed treatment [place] protocol: ??Procedure explained and questions answered to [...] K/mcL LAB HEMETOLOGY METHOD 10/15/2024 3:29 PM [facility] RBC 3.20(L) 4.50 - 5.50 M/mcL LAB HEMETOLOGY METHOD 10/15/2024 3:29 PM [facility] Hemoglobin 9.5(L) 13.5 - 17.5 g/dL LAB HEMETOLOGY METHOD 10/15/2024 3:29 PM [facility] Hematocrit 31.8(L) 42.0 - 54.0 % LAB HEMETOLOGY METHOD 10/15/2024 3:29 PM [facility] MCV 100.6(H) 79.0 - 98.0 FL LAB HEMETOLOGY METHOD 10/15/2024 3:29 PM [facility] MCH 30.1 27.0 - 32.0 pcg LAB HEMETOLOGY METHOD 10/15/2024 3:29 PM [facility] MCHC 29.9(L) 32.0 - 37.0 g/dL LAB HEMETOLOGY METHOD 10/15/2024 3:29 PM [facility] RDW 14.5 11.0 - 15.0 % LAB HEMETOLOGY METHOD 10/15/2024 3:29 PM [facility] Platelets 364 130 - 400 K/mcL LAB HEMETOLOGY METHOD 10/15/2024 3:29 PM [facility] MPV 9.9 7.0 - 11.0 FL LAB HEMETOLOGY METHOD 10/15/2024 3:29 PM [facility] NRBC 0.0 <1.0 % LAB HEMETOLOGY METHOD 10/15/2024 3:29 PM [facility] NRBC Absolute 0.00 <0.10 K/mcL LAB HEMETOLOGY METHOD 10/15/2024 3:29 PM [facility] Neutrophils Relative 71.3 % LAB HEMETOLOGY METHOD 10/15/2024 3:29 PM [facility] Lymphocytes Relative 13.1 % LAB HEMETOLOGY METHOD 10/15/2024 3:29 PM [facility] Monocytes Relative 11.5 % LAB HEMETOLOGY METHOD 10/15/2024 3:29 PM [facility] Eosinophils Relative 2.2 % LAB HEMETOLOGY METHOD 10/15/2024 3:29 PM [facility] Basophils Relative 0.7 % LAB HEMETOLOGY METHOD 10/15/2024 3:29 PM [facility] Immature Granulocytes Relative 1.2 % LAB HEMETOLOGY METHOD 10/15/2024 3:29 PM [facility] Neutrophils Absolute 4.86 1.50 - 7.00 K/mcL LAB HEMETOLOGY METHOD 10/15/2024 3:29 PM [facility] Lymphocytes Absolute 0.89(L) 1.00 - 5.00 K/mcL LAB HEMETOLOGY METHOD 10/15/2024 3:29 PM EST [facility] Monocytes Absolute 0.78 0.20 - 1.00 K/mcL LAB HEMETOLOGY METHOD 10/15/2024 3:29 PM EST [facility] Eosinophils Absolute 0.15 0.00 - 0.50 K/mcL LAB HEMETOLOGY METHOD 10/15/2024 3:29 PM EST [facility] Basophils Absolute 0.05 0.00 - 0.20 K/mcL LAB HEMETOLOGY METHOD 10/15/2024 3:29 PM [facility] Immature Granulocytes Absolute 0.08(H) 0.00 - 0.03 K/mcL LAB HEMETOLOGY METHOD 10/15/2024 3:29 PM [facility] Blood Venous blood specimen / Unknown Venipuncture / Unknown 10/15/2024 10:37 AM EST 10/15/2024 10:37 AM EST us Vishal PATTON LAB BLOOD ORDERABLES Final Resu lt Performing Organization Address City/[facility]/ZIP Co de Phone Number [facility] [address] [place] [address], [place] [phone] * (ABNORMAL) Iron (10/15/2024 10:37 AM EST) Iron 19(L) 50 - 160 mcg/dL LAB CHEMISTRY METHOD 10/15/2024 10:10 PM EST [facility] Blood Venous blood specimen / Unknown Venipuncture / Unknown 10/15/2024 10:37 AM EST 10/15/2024 10:37 AM EST us Vishal PATTON LAB BLOOD ORDERABLES Final Resu lt [facility] [address] [place] [address], [place] [phone] * Ferritin (10/15/2024 10:37 AM EST) Ferritin 36 26 - 388 ng/mL LAB CHEMISTRY METHOD 10/15/2024 10:11 PM [facility] Blood Venous blood specimen / Unknown Venipuncture / Unknown 10/15/2024 10:37 AM EST 10/15/2024 10:37 AM EST Vishal PATTON LAB BLOOD ORDERABLES Final Resu lt [facility] [address] [place] [address], [place] [phone] * (ABNORMAL) Comprehensive metabolic panel (10/15/2024 10:37 AM EST) [facility] Sodium 140 133 - 145 mmol/L LAB CHEMISTRY METHOD 10/15/2024 10:10 PM [facility] Potassium 4.4 3.5 - 5.5 mmol/L LAB CHEMISTRY METHOD 10/15/2024 10:10 PM [facility] Chloride 108 96 - 110 mmol/L LAB CHEMISTRY METHOD 10/15/2024 10:10 PM [facility] CO2 25 21 - 32 mmol/L LAB CHEMISTRY METHOD 10/15/2024 10:10 PM [facility] Anion Gap 7 3 - 11 LAB CHEMISTRY METHOD 10/15/2024 10:10 PM [facility] Glucose 114(H) 70 - 100 mg/dL LAB CHEMISTRY METHOD 10/15/2024 10:10 PM [facility] BUN 33(H) 5 - 25 mg/dL LAB CHEMISTRY METHOD 10/15/2024 10:10 PM [facility] Creatinine 1.70(H) 0.70 - 1.30 mg/dL LAB CHEMISTRY METHOD 10/15/2024 10:10 PM [facility] eGFR 45(L) >=60 mL/min/1. 73m2 LAB CHEMISTRY METHOD 10/15/2024 10:10 PM EST [facility] Comment:Calculation based on the??Chronic Kidney Disease Epidemiology Collaboration (CKD-EPI) equation refit??without adjustment for race. BUN/Creatinine Ratio 19.4 LAB CHEMISTRY METHOD 10/15/2024 10:10 PM [facility] Calcium 8.6 8.5 - 10.5 mg/dL LAB CHEMISTRY METHOD 10/15/2024 10:10 PM [facility] AST (SGOT) 24 10 - 42 unit/L LAB CHEMISTRY METHOD 10/15/2024 10:10 PM [facility] ALT (SGPT) 30 10 - 60 unit/L LAB CHEMISTRY METHOD 10/15/2024 10:10 PM [facility] Alkaline Phosphatase 83 42 - 121 unit/L LAB CHEMISTRY METHOD 10/15/2024 10:10 PM [facility] Total Protein 7.1 6.0 - 8.0 g/dL LAB CHEMISTRY METHOD 10/15/2024 10:10 PM [facility] Albumin 3.5 3.2 - 5.0 g/dL LAB CHEMISTRY METHOD 10/15/2024 10:10 PM [facility] Total Bilirubin 0.3 0.0 - 1.4 mg/dL LAB CHEMISTRY METHOD 10/15/2024 10:10 PM [facility] Blood Venous blood specimen / Unknown Venipuncture / Unknown 10/15/2024 10:37 AM EST 10/15/2024 10:37 AM EST us Vishal PATTON LAB BLOOD ORDERABLES Final Resu lt [facility] [address] [place] [address], * Debridement Diabetic Ulcer Left;Plantar Heel (10/13/2024 [...] LAB CHEMISTRY METHOD 10/11/2024 5:30 PM EST [facility] Blood Venous blood specimen / Unknown Venipuncture / Unknown 10/11/2024 11:22 AM EST 10/11/2024 11:22 AM EST us Vitaliy Fields MD LAB BLOOD ORDERABLES Fi nal Result Performing Organization Address City/[facility]/ZIP Co de Phone Number [facility] [address] [place] [address], [place] [phone] * Free thyroxine with reflex to free triiodothyronine (10/11/2024 11:22 AM EST) Pathologist [facility] Free T4 0.86 0.70 - 1.80 ng/dL LAB CHEMISTRY METHOD 10/11/2024 5:55 PM EST [facility] Blood Venous blood specimen / Unknown Venipuncture / Unknown 10/11/2024 11:22 AM EST 10/11/2024 11:22 AM EST us Vitaliy Fields MD LAB BLOOD ORDERABLES Fi nal Result Performing Organization Address [facility] Co de Phone Number [facility] [address] [place] [address], [place] [phone] * (ABNORMAL) Complete blood count (10/11/2024 11:22 AM EST) WBC 7.6 4.8 - 10.8 K/[facility] LAB HEMETOLOGY METHOD 10/11/2024 2:12 PM EST [facility] RBC 2.90(L) 4.50 - 5.50 M/[facility] LAB HEMETOLOGY METHOD 10/11/2024 2:12 PM EST [facility] Hemoglobin 8.9(L) 13.5 - 17.5 g/dL LAB HEMETOLOGY METHOD 10/11/2024 2:12 PM EST [facility] Hematocrit 29.2(L) 42.0 - 54.0 % LAB HEMETOLOGY METHOD 10/11/2024 2:12 PM [facility] MCV 101.0(H) 79.0 - 98.0 FL LAB HEMETOLOGY METHOD 10/11/2024 2:12 PM [facility] MCH 30.8 27.0 - 32.0 pcg LAB HEMETOLOGY METHOD 10/11/2024 2:12 PM [facility] MCHC 30.5(L) 32.0 - 37.0 g/dL LAB HEMETOLOGY METHOD 10/11/2024 2:12 PM [facility] RDW 14.8 11.0 - 15.0 % LAB HEMETOLOGY METHOD 10/11/2024 2:12 PM [facility] Platelets 309 130 - 400 K/mcL LAB HEMETOLOGY METHOD 10/11/2024 2:12 PM [facility] MPV 10.0 7.0 - 11.0 FL LAB HEMETOLOGY METHOD 10/11/2024 2:12 PM [facility] NRBC 0.0 <1.0 % LAB HEMETOLOGY METHOD 10/11/2024 2:12 PM [facility] NRBC Absolute 0.00 <0.10 K/mcL LAB HEMETOLOGY METHOD 10/11/2024 2:12 PM [facility] Blood Venous blood specimen / Unknown Venipuncture / Unknown 10/11/2024 11:22 AM EST 10/11/2024 11:22 AM EST us Lee Fabian MD LAB BLOOD ORDERABLES Final Res ult [facility] [address] [place] [address], * (ABNORMAL) Triiodothyronine free (10/11/2024 11:22 AM EST) T3, Free 225(L) 230 - 420 pcg/dL LAB CHEMISTRY METHOD 10/11/2024 6:20 PM [facility] Blood Venous blood specimen / Unknown Venipuncture / Unknown 10/11/2024 11:22 AM EST 10/11/2024 11:22 AM EST us Vitaliy Fields MD LAB BLOOD ORDERABLES Fi nal Result [facility] [address] [place] [address], [place] [phone] * (ABNORMAL) Basic metabolic panel (10/11/2024 11:22 AM EST) Only the most recent of2 resultswithin the time period is included. Pathologist [facility] Sodium 137 133 - 145 mmol/L LAB CHEMISTRY METHOD 10/11/2024 5:19 PM [facility] Potassium 5.0 3.5 - 5.5 mmol/L LAB CHEMISTRY METHOD 10/11/2024 5:19 PM [facility] Chloride 105 96 - 110 mmol/L LAB CHEMISTRY METHOD 10/11/2024 5:19 PM [facility] CO2 24 21 - 32 mmol/L LAB CHEMISTRY METHOD 10/11/2024 5:19 PM [facility] Anion Gap 8 3 - 11 LAB CHEMISTRY METHOD 10/11/2024 5:19 PM [facility] Glucose 87 70 - 100 mg/dL LAB CHEMISTRY METHOD 10/11/2024 5:19 PM [facility] BUN 34(H) 5 - 25 mg/dL LAB CHEMISTRY METHOD 10/11/2024 5:19 PM [facility] Creatinine 1.87(H) 0.70 - 1.30 mg/dL LAB CHEMISTRY METHOD 10/11/2024 5:19 PM EST [facility] eGFR 40(L) >=60 mL/min/1. 73m2 LAB CHEMISTRY METHOD 10/11/2024 5:19 PM EST [facility] Comment:Calculation based on the??Chronic Kidney Disease Epidemiology Collaboration (CKD-EPI) equation refit??without adjustment for race. BUN/Creatinine Ratio 18.2 LAB CHEMISTRY METHOD 10/11/2024 5:19 PM EST [facility] Calcium 8.6 8.5 - 10.5 mg/dL LAB CHEMISTRY METHOD 10/11/2024 5:19 PM EST [facility] Blood Venous blood specimen / Unknown Venipuncture / Unknown 10/11/2024 11:22 AM EST 10/11/2024 11:22 AM EST us Lee Fabian MD LAB BLOOD ORDERABLES Final Res ult [facility] [address] [place] [address], * Debridement Diabetic Ulcer Left;Plantar Heel (10/06/2024 [...] Lactate, with reflex (09/19/2024 11:49 PM EST) [facility] LACTIC ACID 2.8(H) 0.4 - 2.0 mmol/L LAB CHEMISTRY METHOD 09/20/2024 12:34 AM EST [facility] Blood Venous blood specimen / Unknown Venipuncture / Unknown 09/19/2024 11:49 PM EST 09/19/2024 11:57 PM EST David PATTON LAB BLOOD ORDERABLES Final Resul t [facility] [address] [place] [address], [place] [phone] * (ABNORMAL) Prothrombin time with INR (09/19/2024 11:49 PM EST) Pathologist [facility] Protime 15.4(H) 10.6 - 13.9 sec LAB COAGULATION METHOD 09/20/2024 12:05 AM EST [facility] INR 1.2 LAB COAGULATION METHOD 09/20/2024 12:05 AM [facility] Blood Venous blood specimen / Unknown Venipuncture / Unknown 09/19/2024 11:49 PM EST 09/19/2024 11:57 PM EST David PATTON LAB BLOOD ORDERABLES Final Resul t [facility] [address] [place] [address], * Lipid panel with reflex to direct LDL (08/20/2024 6:25 AM EST) Cholesterol 123 0 - 200 mg/dL LAB CHEMISTRY METHOD 08/20/2024 7:39 AM EST [facility] Triglycerides 102 0 - 150 mg/dL LAB CHEMISTRY METHOD 08/20/2024 7:39 AM EST [facility] HDL 53 >=40 mg/dL LAB CHEMISTRY METHOD 08/20/2024 7:39 AM EST [facility] LDL Calculated 50 0 - 100 mg/dL LAB CHEMISTRY METHOD 08/20/2024 7:39 AM EST [facility] VLDL Cholesterol Linus 20.4 mg/dL LAB CHEMISTRY METHOD 08/20/2024 7:39 AM EST [facility] Non HDL Chol. (LDL+VLDL) 70 <145 mg/dL LAB CHEMISTRY METHOD 08/20/2024 7:39 AM EST [facility] Chol/HDL Ratio 2.3 0.0 - 4.4 LAB CHEMISTRY METHOD 08/20/2024 7:39 AM EST [facility] Blood Venous blood specimen / Unknown Venipuncture / Unknown 08/20/2024 6:25 AM EST 08/20/2024 7:03 AM EST Jefferson Rendon MD LAB BLOOD ORDERABLES Final Resu lt [facility] [address] [place] [address], [place] [phone] * (ABNORMAL) Hemoglobin A1c (07/22/2024) Hemoglobin A1C 8.7(A) <=6.5 % Blood Venous blood specimen / Unknown [facility] Provider LAB BLOOD ORDERABLES Dalila l Result * Urine Albumin Creatinine Ratio (04/14/2024) [facility] Urine Albumin Creatinine Ratio Abstracted [facility] Provider HEALTH MAINTENANCE Final Result * Diabetes Eye Exam (03/17/2024) [facility] Diabetes: Annual Retina Eye Exam Abstracted [facility] Provider HEALTH MAINTENANCE Final Result * Colonoscopy (05/12/2023) [facility] Colonoscopy No Interpretation , Abstracted Anatomical Region Laterality Modality Other [facility] Provider HEALTH MAINTENANCE Final Result * Hepatitis C Screening (12/24/2017) [facility] Hepatitis C Screening Abstracted [facility] Provider HEALTH MAINTENANCE Final Result from [...] Documents on File Type Date Recorded Patient Psychiatric Nursing Aide Expl anation Health Care Decision (hx) 02/14/2018 [...] currently active code status orders. Care Teams Program Development Manager Relationship Specialty Start Date End Date Lee Fabian MD [address] [place] [address] PCP - General Internal Medicine 08/03/24
--- OUTSIDE RECORDS SUMMARY | 2024-12-10 15:25 | XMS_ITS | Encounter Summary ---
Author Organization [facility] Address [address] [place] [address] Care Team Providers Care Marine Welder Name Role Phone Lee Fabian MD Primary Care Provider Unavail able Vitaliy Fields MD Unavailable [phone] [place] Camejo MD Unavailable [phone] Rolando Lopez MD Unavailable [phone] Cesar Fair MD Unavailable [phone] Daisy Her PT Unavailable [phone] Encounter Details Date Type Department Care Team (Latest Contact Info) Description 12/07/2024 Travel Social History Tobacco Use Types Packs/Day Years Used Date Smoking Tobacco: Former Cigarettes 1 29.2 1 977 - 2004 Smokeless Tobacco: Never Alcohol Use Standard Drinks/Week Comments Yes 21 (1 standard drink = 0.6 oz pu re alcohol) [facility] Utilities Answer Date Recorded In the past 12 months has [employer], gas, oil, or water [employer] threatened to shut off services in your [...] any time in the past 12 m [facility], were you homeless or living in a [...] 2:00 PM EDT Office [facility] [place] [address] [place] Camejo MD [address] [place] [address] 12/16/2024 8:30 AM EDT Office Visit [facility] Infectious Disease [address] [place] [phone] Ena Mtz MD [address] [place] [address] 12/22/2024 10:00 AM EDT Appointment [facility] Heart & Vascular [place] [facility] - Echocardiography Laboratory [address] [place] [address] Ena Mtz MD [address] [place] [address] documented as of this encounter Visit Diagnoses Not on filedocumented in this encounter Care Teams Marine Welder Relationship Specialty Start Date End Date Lee Fabian MD PCP - General Internal Medicine 09/02/24 Vitaliy Fields MD [address] [address] Cardiovascular Disease 09/02/24 [place] Camejo MD [address] [place] [address] Surgery, Orthopedic 09/02/24 Rolando Lopez MD [address] Transplant - Ph [address] [place] [address] Physician Nephrology 09/02/24 Cesar Fair MD 85 [facility] [address] [place] [address] Surgery, Cardiac 11/08/24 Daisy Her, PT 85 [facility] [address] [place] [address] Pressroom SupervisorWeigher [facility] 11/18/24 documented as of this encounter
--- OUTSIDE RECORDS SUMMARY | 2024-12-10 15:25 | XMS_ITS | Encounter Summary ---
Author Organization [facility] [employer] [facility] Address [address] [place] [address] Care Team Providers Care Pin Drafting Machine Tender Name Role Phone Jarrett Merlos MD Primary Care Provider Unavail able Lee Fabian MD Primary Care Provider [phone] Encounter Details Date Type Department Care Team Description 12/22/2017 Valve Repairer Report Medical Records [address] [place] [address] Guy Terjo MD Social History Tobacco Use Types Packs/Day [...] on filedocumented in this encounter Care Teams Pin Drafting Machine Tender Relationship Specialty Start Date End Date Jarrett Merlos MD PCP - General 06/08/01 03/22/20 Lee Fabian MD [address] [place] [address] PCP - General Internal Medicine 03/23/20 documented as of this encounter
--- OUTSIDE RECORDS SUMMARY | 2024-12-10 15:25 | XMS_ITS | Encounter Summary ---
Author Organization [facility] Address [address] [place] [address] Care Team Providers Care Special Needs Librarian Name Role Phone Jarrett Merlos MD Primary Care Provider Unavail able Lee Fabian MD Primary Care Provider [phone] Encounter Details Date Type Department Care Team Description 11/13/2017 Hospital Medical Records [address] [place] [address] Social History Tobacco Use Types Packs/Day Years [...] on filedocumented in this encounter Care Teams Special Needs Librarian Relationship Specialty Start Date End Date Jarrett Merlos MD PCP - General 06/08/01 03/22/20 Lee Fabian MD [address] [place] [address] PCP - General Internal Medicine 03/23/20 documented as of this encounter
--- OUTSIDE RECORDS SUMMARY | 2024-12-10 15:25 | XMS_ITS | Encounter Summary ---
Author Organization [facility] [employer] [facility] Address [address] [place] [address] Care Team Providers Care Position Classification Specialist Name Role Phone Jarrett Merlos MD Primary Care Provider Unavail able Lee Fabian MD Primary Care Provider [phone] Encounter Details Date Type Department Care Team Description 03/29/2011 Mortician Supplies Sales Representative Report Medical Records [address] [place] [address] Cisco Alexandre Social History Tobacco Use Types Packs/Day Years Used Date Smoking Tobacco: Former Cigarettes 1 15 Q uit: 10/30/2003 Alcohol Use Standard Drinks/Week Comments Yes 0 (1 standard drink = 0.6 oz pur e alcohol) 4-5 per week Sex Assigned at Date Recorded Not on file documented as of this encounter Plan of Treatment Not on file documented as of this encounter Visit Diagnoses Not on filedocumented in this encounter Care Teams Position Classification Specialist Relationship Specialty Start Date End Date Jarrett Merlos MD PCP - General 06/08/01 03/22/20 Lee Fabian MD [address] [place] [address] PCP - General Internal Medicine 03/23/20 documented as of this encounter
--- OUTSIDE RECORDS SUMMARY | 2024-12-10 15:25 | XMS_ITS | Encounter Summary ---
Author Organization [facility] [facility] Address [address] [place] [address] Care Team Providers Care Supervisor Pumping Name Role Phone Jarrett Merlos MD Primary Care Provider Unavail able Lee Fabian MD Primary Care Provider [phone] Encounter Details Date Type Department Care Team Description 11/28/2017 Gelatin Powder Mixer Report Medical Records [address] [place] [address] Guy Trejo MD Social History Tobacco Use [...] filedocumented in this encounter Care Teams Supervisor Pumping Relationship Specialty Start Date End Date Jarrett Merlos MD PCP - General 06/08/01 03/22/20 Lee Fabian MD [address] [place] [address] PCP - General Internal Medicine 03/23/20 documented as of this encounter
--- OUTSIDE RECORDS SUMMARY | 2024-12-10 15:25 | XMS_ITS | Encounter Summary ---
Author Organization [employer] [facility] Address [address] [place] [address] Care Team Providers Care Director Compliance Name Role Phone Jarrett Merlos MD Primary Care Provider Unavail able Lee Fabian MD Primary Care Provider [phone] Encounter Details Date Type Department Care Team Description 12/05/2017 Manager Pipeline Report Medical Records [address] [place] [address] Charles Salazar DPM Social History Tobacco Use [...] on filedocumented in this encounter Care Teams Director Compliance Relationship Specialty Start Date End Date Jarrett Merlos MD PCP - General 06/08/01 03/22/20 Lee Fabian MD [address] [place] [address] PCP - General Internal Medicine 03/23/20 documented as of this encounter
--- OUTSIDE RECORDS SUMMARY | 2024-12-10 15:25 | XMS_ITS | Encounter Summary ---
Author Organization [facility] Address [address] [place] [address] Care Team Providers Care Deck Steward Name Role Phone Lee Fabian MD Primary Care Provider [phone] Encounter Details Date Type Department Care Team Description 11/18/2022 Ecmo Specialist Report Medical Records [address] [place], [place] [id number] [place] [address] Endocrine And Diabetes Social History Tobacco Use Types Packs/Day Years [...] suspected to have Coronavirus/COVID-19? No / Unsure 10/29/2022 11:07 AM EST documented as of this encounter Plan of Treatment Not on file documented as of this encounter Visit Diagnoses Not on filedocumented in this encounter Care Teams Deck Steward Relationship Specialty Start Date End Date Lee Fabian MD [address] [place] [address] PCP - General Internal Medicine 03/23/20 documented as of this encounter
--- OUTSIDE RECORDS SUMMARY | 2024-12-10 15:25 | XMS_ITS | Encounter Summary ---
Author Organization [employer] [facility] Address [address] [place] [address] Care Team Providers Care Cassandra Architect Name Role Phone Jarrett Merlos MD Primary Care Provider Unavail able Lee Fabian MD Primary Care Provider [phone] Encounter Details Date Type Department Care Team Description 12/18/2017 Transfer Records Medical Records [address] [place] [address] Abstract, Provider Social History Tobacco Use Types [...] on filedocumented in this encounter Care Teams Cassandra Architect Relationship Specialty Start Date End Date Jarrett Merlos MD PCP - General 06/08/01 03/22/20 Lee Fabian MD [address] [place] [address] PCP - General Internal Medicine 03/23/20 documented as of this encounter
--- OUTSIDE RECORDS SUMMARY | 2024-12-10 15:25 | XMS_ITS | Encounter Summary ---
Author Organization [employer] [facility] Address [address] [place] [address] Care Team Providers Care Telemarketing Supervisor Name Role Phone Jarrett Merlos MD Primary Care Provider Unavail able Lee Fabian MD Primary Care Provider [phone] Encounter Details Date Type Department Care Team Description 11/28/2017 Demolition Worker Report Medical Records [address] [place] [address] Charles Salazar DPM Social History Tobacco Use [...] on filedocumented in this encounter Care Teams Telemarketing Supervisor Relationship Specialty Start Date End Date Jarrett Merlos MD PCP - General 06/08/01 03/22/20 Lee Fabian MD [address] [place] [address] PCP - General Internal Medicine 03/23/20 documented as of this encounter
--- OUTSIDE RECORDS SUMMARY | 2024-12-10 15:25 | XMS_ITS | Encounter Summary ---
Author Organization [facility] Address [address] [place] [address] Care Team Providers Care Special Education Paraprofessional Name Role Phone Jarrett Merlos MD Primary Care Provider Unavail able Lee Fabian MD Primary Care Provider [phone] Encounter Details Date Type Department Care Team Description 12/19/2011 [facility] Medical Records [address] [place] [address] DesiletsDeep MD Social History Tobacco Use Types Packs/Day [...] filedocumented in this encounter Care Teams Special Education Paraprofessional Relationship Specialty Start Date End Date Jarrett Merlos MD PCP - General 06/08/01 03/22/20 Lee Fabian MD [address] [place] [address] PCP - General Internal Medicine 03/23/20 documented as of this encounter
--- OUTSIDE RECORDS SUMMARY | 2024-12-10 15:25 | XMS_ITS | Encounter Summary ---
Author Organization [employer] [facility] Address [address] [place] [address] Care Team Providers Care Turf Grower Name Role Phone Jarrett Merlos MD Primary Care Provider Unavail able Lee Fabian MD Primary Care Provider [phone] Encounter Details Date Type Department Care Team Description 10/31/2017 Sand Filler Report Medical Records [address] [place] [address] Charles Salazar DPM Social History Tobacco Use [...] on filedocumented in this encounter Care Teams Turf Grower Relationship Specialty Start Date End Date Jarrett Merlos MD PCP - General 06/08/01 03/22/20 Lee Fabian MD [address] [place] [address] PCP - General Internal Medicine 03/23/20 documented as of this encounter
--- OUTSIDE RECORDS SUMMARY | 2024-12-10 15:26 | XMS_ITS | Encounter Summary ---
Author Organization [facility] [employer] [facility] Address [address] [place] [address] Care Team Providers Care Human Services Worker Name Role Phone Jarrett Merlos MD Primary Care Provider Unavail able Lee Fabian MD Primary Care Provider [phone] Encounter Details Date Type Department Care Team Description 01/26/2016 [facility] Medical Records [address] [place] [address] [place] Camejo Social History Tobacco Use Types [...] on filedocumented in this encounter Care Teams Human Services Worker Relationship Specialty Start Date End Date Jarrett Merlos MD PCP - General 06/08/01 03/22/20 Lee Fabian MD [address] [place] [address] PCP - General Internal Medicine 03/23/20 documented as of this encounter
--- OUTSIDE RECORDS SUMMARY | 2024-12-10 15:26 | XMS_ITS | Encounter Summary ---
Author Organization [facility] Address [address] [place] [address] Care Team Providers Care Outside Sales Account Representative Name Role Phone Lee Fabian MD Primary Care Provider [phone] Reason for Visit * Reason Onset Date Comments Request For Order(s) 11/12/2024 [facility] Encounter Details Date Type Department Care Team (Late st Contact Info) Description 11/12/2024 [facility] [address] [place] [phone] Lee Fabian MD [address] [place] [address] Request For Order(s) ([facility] ) Social History Tobacco Use Types [...] 2:20 PM EST Faxed order received from Driss BLACKMAN. Orders placed in Lee Fabian MD bin for signing, please fax to [phone]. documented in this encounter Plan of Treatment [...] documented as of this encounter Care Teams Outside Sales Account Representative Relationship Specialty Start Date End Date Lee Fabian MD [address] [place] [address] PCP - General Internal Medicine 08/03/24 documented as of this encounter
--- OUTSIDE RECORDS SUMMARY | 2024-12-10 15:26 | XMS_ITS | Encounter Summary ---
Author Organization [facility] Address [address] [place] [address] Care Team Providers Care Curator Of Manuscripts Name Role Phone Jarrett Merlos MD Primary Care Provider Unavail able Lee Fabian MD Primary Care Provider [phone] Encounter Details Date Type Department Care Team Description 04/23/2016 Pet Trainer Report Medical Records [address] [place] [address] Awilda Mccabe Social History Tobacco Use Types Packs/Day Years [...] on filedocumented in this encounter Care Teams Curator Of Manuscripts Relationship Specialty Start Date End Date Jarrett Merlos MD PCP - General 06/08/01 03/22/20 Lee Fabian MD [address] [place] [address] PCP - General Internal Medicine 03/23/20 documented as of this encounter
--- OUTSIDE RECORDS SUMMARY | 2024-12-10 15:26 | XMS_ITS | Clinical Summary ---
Author Organization [facility] Address [address] [facility] [address] [place] [address] Phone Care Team Providers Care Business Continuity Specialist Name Role Phone Lee Fabian MD Primary Care Provider [phone] Allergies Active Allergy Reactions Criticality Noted Date [...] Visit [facility] [address] [address] Rolando Lopez MD [address] [address] Health Maintenance Due Date Last Done Comments [...] patient's age to complete this topic Insurance [facility] ADV PPO ([id number]) [facility] ADV PPO ([id number]) Care Teams Business Continuity Specialist Relationship Specialty Start Date End Date Lee Fabian MD PCP - General Internal Medicine 01/21/24
--- OUTSIDE RECORDS SUMMARY | 2024-12-10 15:26 | XMS_ITS | Encounter Summary ---
Author Organization [employer] [facility] Address [address] [place] [address] Care Team Providers Care Plastic Boat Buffer Name Role Phone Jarrett Merlos MD Primary Care Provider Unavail able Lee Fabian MD Primary Care Provider [phone] Encounter Details Date Type Department Care Team Description 03/11/2018 [facility] Medical Records [address] [place] [address] Abstract, Provider Social History Tobacco Use Types [...] on filedocumented in this encounter Care Teams Plastic Boat Buffer Relationship Specialty Start Date End Date Jarrett Merlos MD PCP - General 06/08/01 03/22/20 Lee Fabian MD [address] [place] [address] PCP - General Internal Medicine 03/23/20 documented as of this encounter
--- OUTSIDE RECORDS SUMMARY | 2024-12-10 15:26 | XMS_ITS | Encounter Summary ---
Author Organization [facility] Address [address] [place] [address] Care Team Providers Care Technical Buyer Name Role Phone Jarrett Merlos MD Primary Care Provider Unavail able Lee Fabian MD Primary Care Provider [phone] Encounter Details Date Type Department Care Team Description 04/26/2016 Associate Director Career Services Report Medical Records [address] [place] [address] Abstract, Provider Social History Tobacco Use Types [...] on filedocumented in this encounter Care Teams Technical Buyer Relationship Specialty Start Date End Date Jarrett Merlos MD PCP - General 06/08/01 03/22/20 Lee Fabian MD [address] [place] [address] PCP - General Internal Medicine 03/23/20 documented as of this encounter
--- OUTSIDE RECORDS SUMMARY | 2024-12-10 15:26 | XMS_ITS | Encounter Summary ---
Author Organization [employer] [facility] Address [address] [place] [address] Care Team Providers Care Hydrology Technician Name Role Phone Jarrett Merlos MD Primary Care Provider Unavail able Lee Fabian MD Primary Care Provider [phone] Encounter Details Date Type Department Care Team Description 05/22/2018 [facility] Medical Records [address] [place] [address] Abstract, Provider Social History Tobacco Use Types [...] on filedocumented in this encounter Care Teams Hydrology Technician Relationship Specialty Start Date End Date Jarrett Merlos MD PCP - General 06/08/01 03/22/20 Lee Fabian MD [address] [place] [address] PCP - General Internal Medicine 03/23/20 documented as of this encounter
--- OUTSIDE RECORDS SUMMARY | 2024-12-10 15:26 | XMS_ITS | Encounter Summary ---
Author Organization [facility] [employer] [facility] Address [address] [place] [address] Care Team Providers Care Senior Producer Name Role Phone Jarrett Merlos MD Primary Care Provider Unavail able Lee Fabian MD Primary Care Provider [phone] Encounter Details Date Type Department Care Team Description 01/18/2016 [facility] Medical Records [address] [place] [address] Shari Haynes Social History Tobacco Use Types Packs/Day Years [...] on filedocumented in this encounter Care Teams Senior Producer Relationship Specialty Start Date End Date Jarrett Merlos MD PCP - General 06/08/01 03/22/20 Lee Fabian MD [address] [place] [address] PCP - General Internal Medicine 03/23/20 documented as of this encounter
--- OUTSIDE RECORDS SUMMARY | 2024-12-10 15:26 | XMS_ITS | Encounter Summary ---
Author Organization [facility] Address [address] [place] [address] Care Team Providers Care Braille Translator Name Role Phone Lee Fabian MD Primary Care Provider Unavail able Vitaliy Fields MD Unavailable [phone] Dallas Camejo MD Unavailable Rolando Lopez MD Unavailable Cesar Fair MD Unavailable Daisy Her PT Unavailable Encounter Details Date Type Department Care Team (Late st Contact Info) Description 09/17/2024 Documentation [facility] [address] [place] [address] Dallas Camejo MD [address] [place] [address] Social History Tobacco Use Types Packs/Day Years Used Date Smoking Tobacco: Former Cigarettes 1 29.2 1 977 - 2004 Smokeless Tobacco: Never Alcohol Use Standard Drinks/Week Comments Yes 21 (1 standard drink = 0.6 oz pu re alcohol) [facility] Utilities Answer Date Recorded In the past 12 months has [place], gas, oil, or water [employer] threatened to shut off services in your [...] were you homeless or living in a fpc (including now)? No 09/10/2024 Sex and Gender Information Value Date Recorded Sex Assigned at Male 09/03/2024 12:21 PM EST Gender Identity Male 09/03/2024 12:21 PM EST Sexual Orientation Heterosexual (straight) 09/10 7:58 AM EST documented as of this encounter Plan of Treatment Upcoming Encounters Date Type Department Care Team (Late st Contact Info) Description 12/14/2024 2:00 PM EDT Office [facility] [place] [address] Dallas Camejo MD [address] [place] [address] 12/16/2024 8:30 AM EDT Office Visit [facility] Infectious Disease [address] [place] [phone] Ena Mtz MD [address] [place], [place] [id number] 12/22/2024 10:00 AM EDT Appointment [facility] Heart & Vascular [place] [facility] - Echocardiography Laboratory [address] [place] [phone] Ena Mtz MD [address] [place], [place] [id number] documented as of this encounter Visit Diagnoses Not on filedocumented in this encounter 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/10/24 09/16/2024 09/16/2024 11/24/2024 3:08 P M EST R/O Respiratory Disease 11/07/2024 11/07/202410/30 7:06 AM EST R/O Respiratory Disease 11/23/2024 11/23/202410/31 12:00 PM EST documented as of this encounter Care Teams Braille Translator Relationship Specialty Start Date End Date Lee Fabian MD PCP - General Internal Medicine 09/02/24 Vitaliy Fields MD [address] [address] Cardiovascular Disease 09/02/24 Dallas Camejo MD [address] [place] [address] Surgery, Orthopedic 09/02/24 Rolando Lopez MD [address] [place] [address] Transplant - [address] [place] [address] Physician Nephrology 09/02/24 Cesar Fair MD [address] [id number] Surgery, Cardiac 11/08/24 Daisy Her, PT [address] [id number] Fishing Boat MateAircraft Captain Medicine and Rehabilitation 11/18/24 documented as of this encounter
--- OUTSIDE RECORDS SUMMARY | 2024-12-10 15:26 | XMS_ITS | Encounter Summary ---
Author Organization [facility] [employer] [facility] Address [address] [place] [address] Care Team Providers Care C Application Developer Name Role Phone Jarrett Merlos MD Primary Care Provider Unavail able Lee Fabian MD Primary Care Provider [phone] Encounter Details Date Type Department Care Team Description 01/02/2018 Hospital Medical Records [address] [place] [address] Dallas Camejo Social History Tobacco Use Types [...] filedocumented in this encounter Care Teams C Application Developer Relationship Specialty Start Date End Date Jarrett Merlos MD PCP - General 06/08/01 03/22/20 Lee Fabian MD [address] [place] [address] PCP - General Internal Medicine 03/23/20 documented as of this encounter
--- OUTSIDE RECORDS SUMMARY | 2024-12-10 15:26 | XMS_ITS | Encounter Summary ---
Author Organization [facility] Address [address] [place] [address] Care Team Providers Care Talking Books Library Clerk Name Role Phone Jarrett Merlos MD Primary Care Provider Unavail able Lee Fabian MD Primary Care Provider Encounter Details Date Type Department Care Team Description 01/30/2016 [facility] Medical Records [address] [place] [address] Social History Tobacco Use Types Packs/Day Years [...] on filedocumented in this encounter Care Teams Talking Books Library Clerk Relationship Specialty Start Date End Date Jarrett Merlos MD PCP - General 06/08/01 03/22/20 Lee Fabian MD [address] [place] [address] PCP - General Internal Medicine 03/23/20 documented as of this encounter
--- OUTSIDE RECORDS SUMMARY | 2024-12-10 15:26 | XMS_ITS | Encounter Summary ---
Author Organization [facility] Address [address] [place] [address] Care Team Providers Care Light Bulb Tester Name Role Phone Jarrett Merlos MD Primary Care Provider Unavail able Lee Fabian MD Primary Care Provider [phone] Encounter Details Date Type Department Care Team Description 01/19/2016 [facility] Medical Records [address] [place] [address] Farhana Richardson MD Social History Tobacco Use Types Packs/Day [...] on filedocumented in this encounter Care Teams Light Bulb Tester Relationship Specialty Start Date End Date Jarrett Merlos MD PCP - General 06/08/01 03/22/20 Lee Fabian MD [address] [place] [address] PCP - General Internal Medicine 03/23/20 documented as of this encounter
--- OUTSIDE RECORDS SUMMARY | 2024-12-10 15:26 | XMS_ITS | Encounter Summary ---
Author Organization [facility] Address [address] [place] [address] Care Team Providers Care Education Associate Name Role Phone Lee Fabian MD Primary Care Provider [phone] Reason for Visit * Reason Onset Date Comments Faxed Order 2024 Driss BLACKMAN Encounter Details Date Type Department Care Team (Late st Contact Info) Description 2024 Telephone Internal Medicine - [address] [address] Lee Fabian MD [address] [place] [address] Faxed Order (Driss BLACKMAN ) Social History [...] Assessment Author No 09/19/2024 11:54 PM Erik Rednon RN * [...] - 2024 3:53 PM EST Orders from [facility] placed in Lee Fabian MD bin. Please complete and fax back to [phone]. Thank you. documented in this encounter Plan [...] Impaired Tissue On track( 11:44 AM EST) No Susan Peralta RN Wound volume breakdown [...] documented as of this encounter Care Teams Education Associate Relationship Specialty Start Date End Date Lee Fabian MD [address] [place] [address] PCP - General Internal Medicine 08/03/24 documented as of this encounter
--- OUTSIDE RECORDS SUMMARY | 2024-12-10 15:26 | XMS_ITS | Encounter Summary ---
Author Organization [facility] Address [address] [place] [address] Care Team Providers Care Assessment Expert Name Role Phone Jarrett Merlos MD Primary Care Provider Unavail Lee Tidwell MD Primary Care Provider [phone] Reason for Visit * Reason Onset Date Comments REFERRAL 02/17/2014 Encounter Details Date Type Department Care Team Description 02/17/2014 Telephone Podiatry - [address] [address] Filippo Gagnon, RILEY REFERRAL Social History Tobacco Use Types Packs/Day Years Used Date Smoking Tobacco: Former Cigarettes 1 15 Q uit: 10/30/2003 Smokeless Tobacco: Never Alcohol Use Standard Drinks/Week Comments Yes 0 (1 standard drink = 0.6 oz pur e alcohol) 4-5 per week Sex Assigned at Date Recorded Not on file documented as of this encounter Miscellaneous Notes * Telephone Encounter - Julia De - 02/17/2014 1:49 PM EDT Mr. Hull referred patient to: Podiatry. Reason for referral: Plantar fascial fibromatosis Priority: Next Available FYI I spoke with patient and he did not want to book an appt with the Podiatry department. He states he's been going to therapy and is feeling better. He will call up to book a podiatry appt if necessary. Thank You documented in this encounter Plan of Treatment Not on file documented as of this encounter Visit Diagnoses Not on filedocumented in this encounter Care Teams Assessment Expert Relationship Specialty Start Date End Date Jarrett Merlos MD PCP - General 06/08/01 03/22/20 Lee Fabian MD [address] [place] [address] PCP - General Internal Medicine 03/23/20 documented as of this encounter
--- OUTSIDE RECORDS SUMMARY | 2024-12-10 15:26 | XMS_ITS | Encounter Summary ---
Author Organization [facility] Address [address] [place] [address] Care Team Providers Care Horse Groomer Name Role Phone Jarrett Merlos MD Primary Care Provider Unavail Lee Tidwell MD Primary Care Provider [phone] Reason for Visit * Reason Onset Date Comments Faxed Refill 03/04/2018 Encounter Details Date Type Department Care Team Description 03/04/2018 Refill Dermatology - [address] [address] Amparo Wellington PA-C Faxed Refill Social History Tobacco Use Types Packs/Day Years Used Date Smoking Tobacco: Former Cigarettes 1 15 Q uit: 10/30/2003 Smokeless Tobacco: Never Alcohol Use Standard Drinks/Week Comments Yes 0 (1 standard drink = 0.6 oz pur e alcohol) 4-5 per week Sex Assigned at Date Recorded Not on file documented as of this encounter Miscellaneous Notes * Telephone Encounter - Isabelle Warren MA - 03/04/2018 10:41 AM EDT JOSEPH 10/10/17 no f/u scheduled * Telephone Encounter - Elsy Valadez - 03/04/2018 10:26 AM EDT Patient would like script to be: E-PRESCRIBED/FAXED TO PHARMACY WHEN WAS THE PATIENT'S LAST APPOINTMENT IN ADULT MEDICINE? 10/10/2017 WHEN WAS THE LAST TIME THE PATIENT SAW THEIR PCP? Does patient have an upcoming appointment? (THE MEDICATION REQUESTED IS ON THE MED LIST ABOVE) All of the medications requested were on the CURRENT MEDS list Did you check the Pharmacy information above?: YES Patient wants: 30 -day supply Is this a mail order prescription request ? NO Patients current insurance carrier is: Payor: [employer] [facility] Responsys / Plan: [employer] $20 [place] / Product Type: Rec[employer]Match[employer] [id number] documented in this encounter Plan of Treatment Not on file documented as of this encounter Visit Diagnoses Not on filedocumented in this encounter Care Teams Horse Groomer Relationship Specialty Start Date End Date Jarrett Merlos MD PCP - General 06/08/01 03/22/20 Lee Fabian MD [address] [place] [address] PCP - General Internal Medicine 03/23/20 documented as of this encounter
--- OUTSIDE RECORDS SUMMARY | 2024-12-10 15:26 | XMS_ITS | Encounter Summary ---
Author Organization [employer] [facility] Address [address] [place] [address] Care Team Providers Care Preforms Laminator Name Role Phone Jarrett Merlos MD Primary Care Provider Unavail able Lee Fabian MD Primary Care Provider [phone] Encounter Details Date Type Department Care Team Description 04/14/2018 Transfer Records Medical Records [address] [place] [address] Abstract, Provider Social History Tobacco Use Types [...] on filedocumented in this encounter Care Teams Preforms Laminator Relationship Specialty Start Date End Date Jarrett Merlos MD PCP - General 06/08/01 03/22/20 Lee Fabian MD [address] [place] [address] PCP - General Internal Medicine 03/23/20 documented as of this encounter
--- OUTSIDE RECORDS SUMMARY | 2024-12-10 15:26 | XMS_ITS | Encounter Summary ---
Author Organization [employer] [facility] Address [address] [place] [address] Care Team Providers Care Drift Miner Name Role Phone Jarrett Merlos MD Primary Care Provider Unavail able Lee Fabian MD Primary Care Provider [phone] Encounter Details Date Type Department Care Team Description 12/29/2017 [facility] Medical Records [address] [place] [address] Katalina Martin MD Social History Tobacco Use Types Packs/Day [...] on filedocumented in this encounter Care Teams Drift Miner Relationship Specialty Start Date End Date Jarrett Merlos MD PCP - General 06/08/01 03/22/20 Lee Fabian MD [address] [place] [address] PCP - General Internal Medicine 03/23/20 documented as of this encounter
--- OUTSIDE RECORDS SUMMARY | 2024-12-10 15:26 | XMS_ITS | Encounter Summary ---
Author Organization [facility] [facility] Address [address] [place] [address] Care Team Providers Care Foreman/Pile Driving And Erection Name Role Phone Jarrett Merlos MD Primary Care Provider Unavail able Lee Fabian MD Primary Care Provider [phone] Encounter Details Date Type Department Care Team Description 03/13/2018 Business Development Representative Report Medical Records [address] [place] [address] Guy Trejo MD Social History Tobacco Use [...] on filedocumented in this encounter Care Teams Foreman/Pile Driving And Erection Relationship Specialty Start Date End Date Jarrett Merlos MD PCP - General 06/08/01 03/22/20 Lee Fabian MD [address] [place] [address] PCP - General Internal Medicine 03/23/20 documented as of this encounter
--- OUTSIDE RECORDS SUMMARY | 2024-12-10 15:26 | XMS_ITS | Encounter Summary ---
Author Organization [facility] [employer] [facility] Address [address] [place] [address] Care Team Providers Care Graphic Specialist Name Role Phone Jarrett Merlos MD Primary Care Provider Unavail able Lee Fabian MD Primary Care Provider Encounter Details Date Type Department Care Team Description 02/15/2018 Hospital Medical Records [address] [place] [address] Aron Ventura MD 175 [facility] [address] [place] [address] Social History Tobacco Use Types Packs/Day Years [...] on filedocumented in this encounter Care Teams Graphic Specialist Relationship Specialty Start Date End Date Jarrett Merlos MD PCP - General 06/08/01 03/22/20 Lee Fabian MD [address] [place] [address] PCP - General Internal Medicine 03/23/20 documented as of this encounter
--- OUTSIDE RECORDS SUMMARY | 2024-12-10 15:26 | XMS_ITS | Encounter Summary ---
Author Organization [facility] Address [address] [place] [address] Care Team Providers Care Folding Machine Setter Name Role Phone Jarrett Merlos MD Primary Care Provider Unavail able Lee Fabian MD Primary Care Provider [phone] Encounter Details Date Type Department Care Team Description 09/09/2016 Hr Director Report Medical Records [address] [place] [address] Shara Cline Social History Tobacco Use Types Packs/Day Years [...] on filedocumented in this encounter Care Teams Folding Machine Setter Relationship Specialty Start Date End Date Jarrett Merlos MD PCP - General 06/08/01 03/22/20 Lee Fabian MD [address] [place] [address] PCP - General Internal Medicine 03/23/20 documented as of this encounter
--- OUTSIDE RECORDS SUMMARY | 2024-12-10 15:26 | XMS_ITS | Encounter Summary ---
Author Organization [employer] [facility] Address [address] [place] [address] Care Team Providers Care Senior Loan Processor Name Role Phone Jarrett Merlos MD Primary Care Provider Unavail able Lee Fabian MD Primary Care Provider [phone] Encounter Details Date Type Department Care Team Description 07/31/2016 Release of Information Medical Records [address] [place] [address] Abstract, Provider Social History Tobacco Use Types [...] filedocumented in this encounter Care Teams Senior Loan Processor Relationship Specialty Start Date End Date Jarrett Merlos MD PCP - General 06/08/01 03/22/20 Lee Fabian MD [address] [place] [address] PCP - General Internal Medicine 03/23/20 documented as of this encounter
--- OUTSIDE RECORDS SUMMARY | 2024-12-10 15:26 | XMS_ITS | Encounter Summary ---
Author Organization [facility] [employer] [facility] Address [address] [place] [address] Care Team Providers Care Stretch Machine Operator Name Role Phone Jarrett Merlos MD Primary Care Provider Unavail able Lee Fabian MD Primary Care Provider [phone] Encounter Details Date Type Department Care Team Description 05/10/2016 [facility] Medical Records [address] [place] [address] Dallas Camejo Social History Tobacco Use Types [...] on filedocumented in this encounter Care Teams Stretch Machine Operator Relationship Specialty Start Date End Date Jarrett Merlos MD PCP - General 06/08/01 03/22/20 Lee Fabian MD [address] [place] [address] PCP - General Internal Medicine 03/23/20 documented as of this encounter
--- OUTSIDE RECORDS SUMMARY | 2024-12-10 15:26 | XMS_ITS | Encounter Summary ---
Author Organization [facility] Address [address] [place] [address] Care Team Providers Care Vest Front Presser Name Role Phone Lee Fabian MD Primary Care Provider [phone] Reason for Visit * Reason Onset Date Comments Faxed Order 12/02/2024 Driss BLACKMAN Encounter Details Date Type Department Care Team (Late st Contact Info) Description 12/02/2024 Telephone Internal Medicine - [address] [address] Lee Fabian MD [address] [place] [address] Faxed Order (Driss BLACKMAN ) Social History [...] Progress Notes * Isabela Flood MA - 12/06/2024 10:31 AM EDT faxed * Hilda Briceño MA - 12/03/2024 10:08 AM EST Faxed form back. * Nani Dickerson - 12/02/2024 4:08 PM EST Orders from [facility] BLACKMAN placed in Lee Fabian MD bin. Please complete and fax back to [phone]. Thank you. documented in this encounter Plan [...] documented as of this encounter Care Teams Vest Front Presser Relationship Specialty Start Date End Date Lee Fabian MD [address] [place] [address] PCP - General Internal Medicine 08/03/24 documented as of this encounter
--- OUTSIDE RECORDS SUMMARY | 2024-12-10 15:26 | XMS_ITS | Encounter Summary ---
Author Organization [facility] Address [address] [place] [address] Care Team Providers Care Oral Communication Instructor Name Role Phone Jarrett Merlos MD Primary Care Provider Unavail able Lee Fabian MD Primary Care Provider [phone] Encounter Details Date Type Department Care Team Description 08/20/2016 Sawmill Worker Report Medical Records [address] [place] [address] Filippo Gagnon DPM Social History Tobacco Use Types Packs/Day [...] on filedocumented in this encounter Care Teams Oral Communication Instructor Relationship Specialty Start Date End Date Jarrett Merlos MD PCP - General 06/08/01 03/22/20 Lee Fabian MD [address] [place] [address] PCP - General Internal Medicine 03/23/20 documented as of this encounter
--- OUTSIDE RECORDS SUMMARY | 2024-12-10 15:26 | XMS_ITS | Encounter Summary ---
Author Organization [facility] Address [address] [place] [address] Care Team Providers Care Sports Media Name Role Phone Lee Fabian MD Primary Care Provider [phone] Reason for Visit * Reason Onset Date Comments Faxed Order 11/18/2023 [facility] Encounter Details Date Type Department Care Team Description 11/18/2023 Telephone Adult Medicine [address] [address] Lee Fabian MD [address] [place] [address] Faxed Order ([facility] ) Social History Tobacco Use Types Packs/Day Years Used Date Smoking Tobacco: Former Cigarettes 1 15 Q uit: 10/30/2003 Smokeless Tobacco: Never Alcohol Use Standard Drinks/Week Comments Yes 12 (1 standard drink = 0.6 oz pu re alcohol) 12 pack Sex Assigned at Date Recorded Not on file documented as of this encounter Miscellaneous Notes * Telephone Encounter - Betsy Spear - 11/18/2023 4:16 PM EST Faxed order received from [facility]. Placed in Caren's bin. Please complete, sign and fax to [phone] documented in this encounter Plan of Treatment Not on file documented as of this encounter Visit Diagnoses Not on filedocumented in this encounter Care Teams Sports Media Relationship Specialty Start Date End Date Lee Fabian MD [address] [place] [address] PCP - General Internal Medicine 03/23/20 documented as of this encounter
--- OUTSIDE RECORDS SUMMARY | 2024-12-10 15:26 | XMS_ITS | Encounter Summary ---
Author Organization [facility] Address [address] [place] [address] Care Team Providers Care Epic [facility] Specialists Name Role Phone Jarrett Merlos MD Primary Care Provider Unavail able Lee Fabian MD Primary Care Provider [phone] Reason for Visit * Reason Onset Date Comments Faxed Order 05/22/2016 [facility] Encounter Details Date Type Department Care Team Description 05/22/2016 Telephone Adult Medicine [address] [address] Jarrett Merlos MD Faxed Order ([facility]) Social History Tobacco Use Types Packs/Day Years Used Date Smoking Tobacco: Former Cigarettes 1 15 Q uit: 10/30/2003 Smokeless Tobacco: Never Alcohol Use Standard Drinks/Week Comments Yes 0 (1 standard drink = 0.6 oz pur e alcohol) 4-5 per week Sex Assigned at Date Recorded Not on file documented as of this encounter Miscellaneous Notes * Telephone Encounter - Keshia Damon - 05/22/2016 12:59 PM EDT Placed in doctors bin on A side: [facility] Please review, sign and fax when completed documented in this encounter Plan of Treatment Not on file documented as of this encounter Visit Diagnoses Not on filedocumented in this encounter Care Teams Epic [facility] Relationship Specialty Start Date End Date Jarrett Merlos MD PCP - General 06/08/01 03/22/20 Lee Fabian MD [address] [place] [address] PCP - General Internal Medicine 03/23/20 documented as of this encounter
--- OUTSIDE RECORDS SUMMARY | 2024-12-10 15:26 | XMS_ITS | Encounter Summary ---
Author Organization [facility] Address [address] [place] [address] Care Team Providers Care Fitting Room Maintenance Mechanic Name Role Phone Jarrett Merlos MD Primary Care Provider Unavail able Lee Fabian MD Primary Care Provider [phone] Encounter Details Date Type Department Care Team Description 04/16/2016 Digital Sales Executive Report Medical Records [address] [place] [address] Nichelle Duckworth Social History Tobacco Use Types Packs/Day Years [...] on filedocumented in this encounter Care Teams Fitting Room Maintenance Mechanic Relationship Specialty Start Date End Date Jarrett Merlos MD PCP - General 06/08/01 03/22/20 Lee Fabian MD [address] [place] [address] PCP - General Internal Medicine 03/23/20 documented as of this encounter
--- OUTSIDE RECORDS SUMMARY | 2024-12-10 15:26 | XMS_ITS | Encounter Summary ---
Author Organization [facility] Address [address] [place] [address] Care Team Providers Care Languages And Literature Instructor Name Role Phone Jarrett Merlos MD Primary Care Provider Unavail able Lee Fabian MD Primary Care Provider [phone] Encounter Details Date Type Department Care Team Description 03/05/2016 Public Message Service Supervisor Report Medical Records [address] [place] [address] Darrell Richardson MD Social History Tobacco Use Types [...] on filedocumented in this encounter Care Teams Languages And Literature Instructor Relationship Specialty Start Date End Date Jarrett Merlos MD PCP - General 06/08/01 03/22/20 Lee Fabian MD [address] [place] [address] PCP - General Internal Medicine 03/23/20 documented as of this encounter
--- OUTSIDE RECORDS SUMMARY | 2024-12-10 15:26 | XMS_ITS | Encounter Summary ---
Author Organization [facility] Address [address] [place] [address] Care Team Providers Care Oracle Obiee Developer Name Role Phone Lee Fabian MD Primary Care Provider [phone] Reason for Visit * Reason Onset Date Comments Care Management 01/28/2024 Encounter Details Date Type Department Care Team Description 01/28/2024 Telephone Adult Medicine [facility] [address] [place] [address] Lee Fabian MD [address] [place] [address] Care Management Social History Tobacco Use Types Packs/Day Years Used Date Smoking Tobacco: Former Cigarettes 1 15 Q uit: 10/30/2003 Smokeless Tobacco: Never Alcohol Use Standard Drinks/Week Comments Yes 12 (1 standard drink = 0.6 oz pu re alcohol) 12 pack Sex Assigned at Date Recorded Not on file documented as of this encounter Miscellaneous Notes * Telephone Encounter - Tonya Martinez R.N. - 01/28/2024 8:31 AM EDT Routine care management outreach call. Attempted to outreach patient on 01/28/24. Unable to reach at this time, left HIPAA compliant voicemail. Will attempt routine 2nd outreach call. Patient's next PCP follow-up appointment scheduled on no PCP appt scheduled. Tonya Martinez RN planning coordinator [facility] PH: Hours: M-F 7:30a-4p. documented in this encounter Plan of Treatment Not on file documented as of this encounter Visit Diagnoses Not on filedocumented in this encounter Care Teams Oracle Obiee Developer Relationship Specialty Start Date End Date Lee Fabian MD [address] [place] [address] PCP - General Internal Medicine 03/23/20 documented as of this encounter
--- OUTSIDE RECORDS SUMMARY | 2024-12-10 15:26 | XMS_ITS | Encounter Summary ---
Author Organization [facility] Address [address] [place] [address] Care Team Providers Care Toolroom Machinist Name Role Phone Lee Fabian MD Primary Care Provider [phone] Reason for Visit * Reason Onset Date Comments Hospital Follow-up 2024 Encounter Details Date Type Department Care Team (Late st Contact Info) Description 2024 Telephone Internal Medicine - [facility] [address] [place] [phone] Lee Fabian MD [address] [place] [address] Hospital Follow-up Social History Tobacco Use Types [...] 2024 10:58 AM EST Spoke with pt [facility] f/u appt. scheduled * Kevin Stroud - 2024 10:10 AM EST Hospital/ER follow up appointment needed Hospital patient was treated at: [facility] Was this only an ER visit [...] was the injury due to: Not 3rd libertarian related documented in this encounter Plan of [...] documented as of this encounter Care Teams Toolroom Machinist Relationship Specialty Start Date End Date Lee Fabian MD [address] [place] [address] PCP - General Internal Medicine 08/03/24 documented as of this encounter
--- OUTSIDE RECORDS SUMMARY | 2024-12-10 15:26 | XMS_ITS | Encounter Summary ---
Author Organization [facility] Address [address] [place] [address] Care Team Providers Care Spike Machine Heater Name Role Phone Jarrett Merlos MD Primary Care Provider [facility] Lee Tidwell MD Primary Care Provider [phone] Reason for Visit * Reason Onset Date Comments Faxed Order 11/05/2017 Encounter Details Date Type Department Care Team Description 11/05/2017 Telephone Adult Medicine [address] [address] Jarrett Merlos MD Faxed Order Social History [...] Telephone Encounter - Christen Shukla - 11/05/2017 9:34 AM EST [facility] sent orders to be reviewed, signed and faxed back to [phone] Orders to be placed in dr Merlos's bin on a-side documented in this encounter Plan of Treatment Not on file documented as of this encounter Visit Diagnoses Not on filedocumented in this encounter Care Teams Spike Machine Heater Relationship Specialty Start Date End Date Jarrett Merlos MD PCP - General 06/08/01 03/22/20 Lee Fabian MD [address] [place] [address] PCP - General Internal Medicine 03/23/20 documented as of this encounter
--- OUTSIDE RECORDS SUMMARY | 2024-12-10 15:26 | XMS_ITS | Encounter Summary ---
Author Organization [employer] [facility] Address [address] [place] [address] Care Team Providers Care Sports Team Manager Name Role Phone Jarrett Merlos MD Primary Care Provider Unavail able Lee Fabian MD Primary Care Provider [phone] Encounter Details Date Type Department Care Team Description 01/01/2018 Home Health Certification Medical Records [address] [place] [address] Abstract, Provider Social History Tobacco Use Types [...] filedocumented in this encounter Care Teams Sports Team Manager Relationship Specialty Start Date End Date Jarrett Merlos MD PCP - General 06/08/01 03/22/20 Lee Fabian MD [address] [place] [address] PCP - General Internal Medicine 03/23/20 documented as of this encounter
--- OUTSIDE RECORDS SUMMARY | 2024-12-10 15:26 | XMS_ITS | Encounter Summary ---
Author Organization [facility] [facility] Address [address] [place] [address] Care Team Providers Care Seconds Inspector Name Role Phone Jarrett Merlos MD Primary Care Provider Unavail able Lee Fabian MD Primary Care Provider [phone] Encounter Details Date Type Department Care Team Description 04/25/2016 Rn Community Report Medical Records [address] [place] [address] Lucrecia Duckworth NP Social History Tobacco Use [...] on filedocumented in this encounter Care Teams Seconds Inspector Relationship Specialty Start Date End Date Jarrett Merlos MD PCP - General 06/08/01 03/22/20 Lee Fabian MD [address] [place] [address] PCP - General Internal Medicine 03/23/20 documented as of this encounter
--- OUTSIDE RECORDS SUMMARY | 2024-12-10 15:26 | XMS_ITS | Encounter Summary ---
Author Organization [facility] Address [address] [place] [address] Care Team Providers Care Automatic Tire Tester Name Role Phone Lee Fabian MD Primary Care Provider [phone] Reason for Visit * Reason Onset Date Comments Faxed Order 12/02/2024 Driss BLACKMAN Encounter Details Date Type Department Care Team (Late st Contact Info) Description 12/02/2024 Telephone Internal Medicine - [address] [address] Lee Fabian MD [address] [place] [address] Faxed Order (Driss BLACKMAN) Social History Tobacco [...] - 12/06/2024 10:31 AM EDT faxed * Nani Dickerson - 12/02/2024 4:09 PM EST Orders from [facility] placed in Lee Fabian MD bin. Please complete and fax back to [phone]. Thank you. documented in this encounter Plan [...] by week 12 Care Plan Impaired Tissue No Susan Peralta RN Quit using tobacco (cigarettes, smokeless, etc) [...] documented as of this encounter Care Teams Automatic Tire Tester Relationship Specialty Start Date End Date Lee Fabian MD [address] [place] [address] PCP - General Internal Medicine 08/03/24 documented as of this encounter
--- OUTSIDE RECORDS SUMMARY | 2024-12-10 15:26 | XMS_ITS | Encounter Summary ---
Author Organization [employer] [facility] Address [address] [place] [address] Care Team Providers Care Cadmium Burner Name Role Phone Jarrett Merlos MD Primary Care Provider Unavail able Lee Fabian MD Primary Care Provider [phone] Encounter Details Date Type Department Care Team Description 09/19/2016 [facility] Medical Records [address] [place] [address] Abstract, Provider Social History Tobacco Use Types [...] on filedocumented in this encounter Care Teams Cadmium Burner Relationship Specialty Start Date End Date Jarrett Merlos MD PCP - General 06/08/01 03/22/20 Lee Fabian MD [address] [place] [address] PCP - General Internal Medicine 03/23/20 documented as of this encounter
--- OUTSIDE RECORDS SUMMARY | 2024-12-10 15:26 | XMS_ITS | Encounter Summary ---
Author Organization [email or web address] [facility] Address [address] [place] [address] Care Team Providers Care Metal Buggy Operator Name Role Phone Jarrett Merlos MD Primary Care Provider Unavail able Lee Fabian MD Primary Care Provider [phone] Encounter Details Date Type Department Care Team Description 05/03/2016 Distribution Engineering Technologist Report Medical Records [address] [place] [address] Sage Rose MD Social History Tobacco Use Types Packs/Day [...] on filedocumented in this encounter Care Teams Metal Buggy Operator Relationship Specialty Start Date End Date Jarrett Merlos MD PCP - General 06/08/01 03/22/20 Lee Fabian MD [address] [place] [address] PCP - General Internal Medicine 03/23/20 documented as of this encounter
--- OUTSIDE RECORDS SUMMARY | 2024-12-10 15:26 | XMS_ITS | Encounter Summary ---
Author Organization [facility] Address [address] [place] [address] Care Team Providers Care Inside Sales Coordinator Name Role Phone Lee Fabian MD Primary Care Provider [phone] Reason for Visit * Reason Onset Date Comments Faxed Order 11/25/2023 Regional Encounter Details Date Type Department Care Team Description 11/25/2023 Telephone Adult Medicine [address] [address] Lee Fabian MD [address] [place] [address] Faxed Order ([facility] ) Social History Tobacco Use Types Packs/Day Years Used Date Smoking Tobacco: Former Cigarettes 1 15 Q uit: 10/30/2003 Smokeless Tobacco: Never Alcohol Use Standard Drinks/Week Comments Yes 12 (1 standard drink = 0.6 oz pu re alcohol) 12 pack Sex Assigned at Date Recorded Not on file documented as of this encounter Miscellaneous Notes * Telephone Encounter - Sri Nieves M.A. - 11/26/2023 12:22 PM EST Faxed back * Telephone Encounter - Bev Caldwell - 11/25/2023 10:22 AM EST Faxed order from regional . Placed in bin please sign and fax back. documented in this encounter Plan of Treatment Not on file documented as of this encounter Visit Diagnoses Not on filedocumented in this encounter Care Teams Inside Sales Coordinator Relationship Specialty Start Date End Date Lee Fabian MD [address] [place] [address] PCP - General Internal Medicine 03/23/20 documented as of this encounter
--- OUTSIDE RECORDS SUMMARY | 2024-12-10 15:27 | XMS_ITS | Encounter Summary ---
Author Organization [facility] Address [address] [place] [address] Care Team Providers Care Bull Gang Supervisor Name Role Phone Lee Fabian MD Primary Care Provider [phone] Reason for Visit * Reason Comments Home Health Cert Encounter Details Date Type Department Care Team (Late st Contact Info) Description 11/11/2024 Billing Patient Not Present [facility] [address] [place] [phone] Lee Fabian MD [address] [place] [address] Encounter for change or removal of surgical wound dressing (Primary Dx); Encounter for surgical aftercare following surgery on the skin and subcutaneous tissue; Type 2 diabetes mellitus with other specified complication, unspecified whether salvage determiner insulin use (CMS/[facility]); Other acute osteomyelitis, left ankle and foot ([facility]); Type 2 diabetes mellitus with diabetic peripheral angiopathy with gangrene, unspecified whether salvage determiner insulin use (CMS/[facility]); 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 (CMS/[facility]); Other specified bacterial agents as the cause of diseases classified elsewhere; Type 2 diabetes mellitus with foot ulcer, unspecified whether salvage determiner insulin use (CMS/HCC); Non-pressure chronic ulcer of right heel and midfoot with fat layer exposed (CMS/HCC); Type 2 diabetes mellitus with diabetic neuropathic arthropathy, unspecified whether salvage determiner insulin use (CMS/[facility]) Social History Tobacco Use Types Packs/Day Years [...] 11/09/24 Hospice patient: No Home Care Agency: [facility] Recertification Code [id number] Initial Code G0180 [...] mellitus with other specified complication, unspecified whether salvage determiner insulin use ([facility]) Other acute osteomyelitis, left ankle and foot ([facility]) Type 2 diabetes mellitus with diabetic peripheral angiopathy with gangrene, unspecified whether salvage determiner insulin use ([facility]) 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 ([facility]) Other specified bacterial agents as the cause of diseases classified elsewhere Type 2 diabetes mellitus with foot ulcer, unspecified whether custodial insulin use ([facility]) Non-pressure chronic ulcer of right heel and midfoot with fat layer exposed (CMS/HCC) Type 2 diabetes mellitus with diabetic neuropathic arthropathy, unspecified whether salvage determiner insulin use (CMS/[facility]) documented in this encounter Additional Health Concerns Active Problems Noted Date Diagnosed Date Impaired Tissue 08/10/2024 Education needed on impact of smoking on wound 1 10/10/2023 Education needed related to ulceration/compromised skin integrity. 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
--- OUTSIDE RECORDS SUMMARY | 2024-12-10 15:27 | XMS_ITS | Encounter Summary ---
Author Organization [facility] Address [address] [place] [address] Care Team Providers Care Compotype Operator Name Role Phone Lee Fabian MD Primary Care Provider [phone] Reason for Visit * Reason Onset Date Comments Faxed Order 11/26/2024 Driss BLACKMAN Encounter Details Date Type Department Care Team (Late st Contact Info) Description 11/26/2024 Telephone Internal Medicine - [address] [address] Lee Fabian MD [address] [place] [address] Faxed Order (Driss BLACKMAN ) Social History [...] - 11/26/2024 2:38 PM EST [facility]. Please complete and fax back to [phone]. Thank you. documented in this encounter Plan [...] documented as of this encounter Care Teams Compotype Operator Relationship Specialty Start Date End Date Lee Fabian MD [address] [place] [address] PCP - General Internal Medicine 08/03/24 documented as of this encounter
--- OUTSIDE RECORDS SUMMARY | 2024-12-10 15:27 | XMS_ITS | Encounter Summary ---
Author Organization [facility] Address [address] [place] [address] Care Team Providers Care Retail Administrative Assistant Name Role Phone Lee Fabian MD Primary Care Provider Encounter Details Date Type Department Care Team (Late st Contact Info) Description 11/19/2024 Telephone Infectious Disease - [place] [address] [place] [address] Marlin Keene RN Social History Tobacco [...] [place]. He is an employee at [employer] and will seek out continued care there. [...] documented as of this encounter Care Teams Retail Administrative Assistant Relationship Specialty Start Date End Date Lee Fabian MD [address] [place] [address] PCP - General Internal Medicine 08/03/24 documented as of this encounter
--- OUTSIDE RECORDS SUMMARY | 2024-12-10 15:27 | XMS_ITS | Encounter Summary ---
Author Organization [facility] Address [address] [place] [address] Care Team Providers Care Internal Medicine Doctor Name Role Phone Lee Fabian MD Primary Care Provider [phone] Reason for Visit * Reason Onset Date Comments Faxed Order 11/04/2024 Encounter Details Date Type Department Care Team (Late st Contact Info) Description 11/04/2024 Telephone Internal Medicine - [facility] [address] [place] [phone] Lee Fabian MD [address] [place] [address] Faxed Order Social History Tobacco Use Types [...] - 11/04/2024 10:17 AM EST [facility]. Please complete and fax back to [phone]. Thank you. documented in this encounter Plan [...] documented as of this encounter Care Teams Internal Medicine Doctor Relationship Specialty Start Date End Date Lee Fabian MD [address] [place] [address] PCP - General Internal Medicine 08/03/24 documented as of this encounter
== END 2024-12-10 13:41 | disposition home or self-care (01) ==
LOC: HO.HVNA 13:40
PROVIDERS: Visit Provider Student in an Organized Health Care Education/Training Program
DX: T81.49XA Infection following a procedure, other surgical site, initial encounter (principal); Z79.2 Long term (current) use of antibiotics
CPT/HCPCS: 36415; 80053; 82550; 85025; 85652; 86140

== ENCOUNTER 2024-12-17 14:35 | Outpatient (REF) | payer MEDICARE, SELFPAY ==
[2024-12-17 14:41] LABS: MANUAL DIFF FLAG NO
[2024-12-17 14:56] LABS: Basophils Absolute Auto 0.1 X10*3/uL (0.0-0.2); Basophils Percent Auto 0.6 % (0-2); Eosinophils Absolute Auto 0.4 X10*3/uL (0.0-0.4); Eosinophils Percent Auto 5.1 % (0-4); Hematocrit 33.5 % (42.0-52.0); Hemoglobin 10.4 g/dl (14.0-18.0); Imm Gran Abs Auto 0.06 X10*3/uL (0.00-0.03); Imm Gran Pct Auto 0.7 % (0.0-0.4); Lymphocytes Absolute Auto 1.1 X10*3/uL (1.2-4.9); Lymphocytes Percent Auto 12.4 % (20-40); Mean Corpuscular Hemoglobin 28.7 pg (27.0-33.0); Mean Corpuscular Volume 92.5 fL (80.0-98.0); Mean Platelet Volume 10.9 fL (9.4-12.4); Monocytes Absolute Auto 0.7 X10*3/uL (0.1-1.2); Monocytes Percent Auto 8.5 % (2-11); Neutrophils Absolute Auto 6.3 x10*3/uL (2.0-8.3); Neutrophils Percent Auto 72.7 % (45-73); Platelet Count 250 X10*3/uL (160-400); Red Blood Count 3.62 X10*6/uL (4.60-5.80); Red Cell Distribution Width 20.9 % (11.0-16.0); White Blood Count 8.6 X10*3/uL (4.8-10.8)
[2024-12-17 15:21] LABS: Alanine Aminotransferase 12 U/L (0-40); Albumin Level 3.5 g/dL (3.5-5.0); Anion Gap 16 (12-20); Aspartate Amino Transferase 21 U/L (5-37); Bilirubin Total 0.3 mg/dL (0.0-1.0); Blood Urea Nitrogen 29 mg/dL (9-16); Calcium 8.3 mg/dL (8.4-10.2); Carbon Dioxide 25 mmol/L (22-29); Chloride 105 mmol/L (96-108); Estimated Glomerular Filt Rate 58; Glucose Random 176 mg/dL (60-115); Potassium 3.9 mmol/L (3.3-5.1); Sodium 142 mmol/L (135-145); Total Protein 6.6 g/dL (6.5-8.0)
[2024-12-17 15:43] LABS: Erythrocyte Sedimentation Rate 38 MM/HR (0-15)
[2024-12-17 15:58] LABS: Alkaline Phosphatase 84 U/L (39-117)
== END 2024-12-17 14:36 | disposition home or self-care (01) ==
LOC: HO.HVNA 14:35
PROVIDERS: Visit Provider Student in an Organized Health Care Education/Training Program
DX: T81.49XA Infection following a procedure, other surgical site, initial encounter (principal); Z79.2 Long term (current) use of antibiotics
CPT/HCPCS: 36415; 80053; 82550; 85025; 85652; 86140

== ENCOUNTER 2024-12-24 13:17 | Outpatient (REF) | payer MEDICARE, SELFPAY ==
[2024-12-24 13:20] LABS: MANUAL DIFF FLAG NO
[2024-12-24 13:40] LABS: Basophils Absolute Auto 0.1 X10*3/uL (0.0-0.2); Eosinophils Absolute Auto 0.6 X10*3/uL (0.0-0.4); Eosinophils Percent Auto 6.7 % (0-4); Hematocrit 37.6 % (42.0-52.0); Hemoglobin 11.6 g/dl (14.0-18.0); Imm Gran Abs Auto 0.11 X10*3/uL (0.00-0.03); Imm Gran Pct Auto 1.2 % (0.0-0.4); Lymphocytes Absolute Auto 1.2 X10*3/uL (1.2-4.9); Lymphocytes Percent Auto 13.5 % (20-40); Mean Corpuscular HGB Conc 30.9 g/dl (31.0-36.0); Mean Corpuscular Hemoglobin 29.1 pg (27.0-33.0); Mean Corpuscular Volume 94.5 fL (80.0-98.0); Mean Platelet Volume 9.6 fL (9.4-12.4); Monocytes Absolute Auto 0.8 X10*3/uL (0.1-1.2); Monocytes Percent Auto 8.7 % (2-11); Neutrophils Absolute Auto 6.1 x10*3/uL (2.0-8.3); Neutrophils Percent Auto 68.9 % (45-73); Platelet Count 336 X10*3/uL (160-400); Red Blood Count 3.98 X10*6/uL (4.60-5.80); Red Cell Distribution Width 20.4 % (11.0-16.0); White Blood Count 8.9 X10*3/uL (4.8-10.8)
[2024-12-24 14:19] LABS: Alanine Aminotransferase 15 U/L (0-40); Albumin Level 3.8 g/dL (3.5-5.0); Alkaline Phosphatase 78 U/L (39-117); Anion Gap 12 (12-20); Aspartate Amino Transferase 21 U/L (5-37); Bilirubin Total 0.3 mg/dL (0.0-1.0); Blood Urea Nitrogen 46 mg/dL (9-16); C Reactive Protein 1.92 mg/dL (< or = 0.50); Calcium 8.6 mg/dL (8.4-10.2); Carbon Dioxide 28 mmol/L (22-29); Chloride 107 mmol/L (96-108); Estimated Glomerular Filt Rate 47; Glucose Random 146 mg/dL (60-115); Potassium 4.8 mmol/L (3.3-5.1); Sodium 142 mmol/L (135-145); Total Protein 6.6 g/dL (6.5-8.0)
[2024-12-24 14:38] LABS: Erythrocyte Sedimentation Rate 30 MM/HR (0-15)
== END 2024-12-24 13:18 | disposition home or self-care (01) ==
LOC: HO.HVNA 13:17
PROVIDERS: Visit Provider Student in an Organized Health Care Education/Training Program
DX: T81.49XA Infection following a procedure, other surgical site, initial encounter (principal); B95.62 Methicillin resistant Staphylococcus aureus infection as the cause of diseases classified elsewhere
CPT/HCPCS: 36415; 80053; 82550; 85025; 85652; 86140

== ENCOUNTER → 2025-01-18 23:59 | Outpatient (BNV) | payer MEDICARE, SELFPAY ==
--- NOTE | 2025-01-23 14:48 | MHC.OFFVIS ---
Intake Visit Reasons: Remote device check- [employer] Allergies lisinopril Allergy (Mild, Verified 08/12/24 14:05) kidney trouble PFSH Medical History Diabetes Obstructive sleep apnea Paroxysmal atrial fibrillation (HFpEF) heart failure with preserved ejection fraction Presence of Watchman left atrial appendage closure device Pacemaker Hx of cardiac pacemaker Surgical History (Reviewed 12/02/24 @ 09:37 by Georgie Dugan [facility]) History of amputation of toe Hx of hand surgery Hx of colonoscopy Hx of total knee replacement Hx of gastric bypass History of amputation of lesser toe Hx of colonoscopy Hx of prior ablation treatment Hx of foot surgery Family History Father Emphysema lung Mother Heart failure Son Ulcerative colitis Brother No problems noted. Sister No problems noted. Sister No problems noted. Social History Are you a primary care provider to a significant other at home: No Do you presently have visiting nurse or other home services: No Alcohol intake: current Alcohol intake frequency: a few times a week Patient Tobacco Use Status: Former Tobacco user Tobacco use type: Cigarette Office Procedures Cardiac Device Check Cardiac Device Check Details: Date of service- 01/18/2025 ; Battery life >10 years; normal lead parameters; FOOD AND BEVERAGE ASSISTANT MANAGER 100%; no significant arrhythmias. Overall normal device function. [id number] Cardiac Device Interrogation, pacemaker Procedure code (CPT) selection complete Assessment & Plan Assessment & Plan (1) Pacemaker: Code(s): Z95.0 - Presence of cardiac pacemaker Category: Medical (2) Paroxysmal atrial fibrillation: Code(s): I48.0 - Paroxysmal atrial fibrillation Category: Medical (3) (HFpEF) heart failure with preserved ejection fraction: Code(s): I50.30 - Unspecified diastolic (congestive) heart failure Category: Medical Plan x Coding Level of Care Code Procedure Only Diagnoses Pacemaker Z95.0 Paroxysmal atrial fibrillation I48.0 (HFpEF) heart failure with preserved ejection fraction I50.30 CPT Codes Cardiac Device Check - Cardiac Device 12: [id number] Cardiac Device Interrogation, pacemaker ([id number])
== END ==
PROVIDERS: PCP Internal Medicine; Visit Provider Internal Medicine
DX: I48.0 Paroxysmal atrial fibrillation (principal); Z95.0 Presence of cardiac pacemaker; I50.30 Unspecified diastolic (congestive) heart failure
CPT/HCPCS: 93294

== ENCOUNTER 2025-02-07 12:23 | Outpatient (AMB) | payer MEDICARE, SELFPAY ==
--- NOTE | 2025-02-07 12:45 | A.OFFVIS_ITS ---
Vital Signs 02/07/25 12:46 Height 5 ft 3 in BMI Reason not done Patient refused/unable BP 110/60 Blood Pressure Location Lt brachial Position Sitting Pulse 63 Pulse Source Monitor Intake Visit Reasons: medtronic and ov cataract surger Berhane Allergies lisinopril Allergy (Mild, Verified 08/12/24 14:05) kidney trouble Medication List - Last Reconciled 02/07/25 by Vitaliy Fields MD amiodarone 200 mg PO DAILY amlodipine 5 mg PO DAILY bumetanide 2 mg PO DAILY 90 days cholecalciferol (vitamin D3) 25 mcg PO DAILY donepezil 10 mg PO DAILY empagliflozin (Jardiance) 25 mg PO DAILY glipizide ER 2.5 mg PO BID metformin 500 mg PO ONCE metoprolol tartrate 50 mg PO BID 90 days omega 0-ozb-eyr-fish oil 1,000 (120-180) mg (Fish Oil) 1 cap PO DAILY pantoprazole 40 mg PO DAILY pravastatin 20 mg PO DAILY pregabalin (Lyrica) 150 mg PO BID zinc gluconate 10 mg PO DAILY HPI Comments Details: Luca returns for follow-up. Long and complicated history. History of atrial fibrillation and he has had prior cardioversions and ablations numerous times. He also has a history of gastrointestinal bleeding and underwent Watchman device. History of bariatric surgery and weight loss. Chronic heart failure on diuretics. In the clinic visit from 2023, he was in atrial flutter with rapid rate. As there was no remote monitoring, this was going on at least for few months before detected during clinic visit. Then had therapeutic anticoagulation followed by cardioversion. He was supposed to get another ablation at [facility] but in the interim, it seems that he had left foot osteomyelitis. After that, he underwent left below-knee amputation. In this context, had bacteremia with MRSA/VRE. There was question of mitral valve/pacemaker lead endocarditis. Put on antibiotics. Then had heart failure exacerbation. Then was put on Bumex drip. TATIANNA had shown concern for mobile echodensity in the mitral valve annulus and adjacent to Watchman device. Following this, dual-chamber pacemaker extracted and he had micro implanted. Eventually, discharged home. From cardiac, he states he feels good. No symptoms whatsoever. He saw [facility] in follow-up but he states that he will no longer be going there. We need to get that visit note. Otherwise planning to go for cataract surgery. With regard to the plan cardiac ablation for atrial flutter, he states that it has been postponed to April. He already has a date set up. [facility] Medical History (Updated 02/07/25 @ 12:55 by Vitaliy Fields MD) Diabetes Obstructive sleep apnea Paroxysmal atrial fibrillation (HFpEF) heart failure with preserved ejection fraction Presence of Watchman left atrial appendage closure device Pacemaker Hx of cardiac pacemaker Surgical History History of amputation of toe Hx of hand surgery Hx of colonoscopy Hx of total knee replacement Hx of gastric bypass History of amputation of lesser toe Hx of colonoscopy Hx of prior ablation treatment Hx of foot surgery Family History Father Emphysema lung Mother Heart failure Son Ulcerative colitis Brother No problems noted. Sister No problems noted. Sister No problems noted. Social History Are you a primary medicare interviewer to a significant other at home: No Do you presently have visiting nurse or other home services: No Alcohol intake: current Alcohol intake frequency: a few times a week Patient Tobacco Use Status: Former Tobacco user Tobacco use type: Cigarette Review of Systems Const All systems reviewed & are unremarkable except as noted in HPI and below Reports as per HPI and Reports no additional complaints Eyes Reports as per HPI and Denies no additional complaints ENT Denies no additional complaints and Reports as per HPI Card Reports as per HPI, Reports no additional complaints, Denies acrocyanosis, Denies chest pain, Denies leg edema, Denies lightheadedness, Denies palpitations and Denies dyspnea Resp Reports as per HPI, Denies no additional complaints and Denies dyspnea GI Reports as per HPI and Denies no additional complaints Reports no additional complaints and Reports as per HPI Musc Reports no additional complaints and Reports as per HPI Skin/Breast Reports system reviewed and no additional complaints, except as documented Neuro Reports no additional complaints and Reports as per HPI Psych Reports no additional complaints and Reports as per HPI Endo Reports no additional complaints, Reports as per HPI and Denies palpitations Iron/Lymph Reports no additional complaints and Reports as per HPI Aller/Immun Reports no additional complaints and Reports as per HPI Physical Exam Vital Signs: Last Vital Signs Pulse 63 02/07/25 12:46 BP 110/60 02/07/25 12:46 Const General: comfortable and no acute distress Orientation/consciousness: patient oriented x3 HEENT Other: Unremarkable Head: Yes normal to inspection Neck Neck: Yes normal visual inspection Chest Chest palpation & inspection: normal inspection of the chest Resp Auscultation: clear to auscultation bilaterally Cardio Palpation: normal PMI Heart sounds: S1 normal heart sound present, S2 normal heart sound present, no gallops, no murmurs and no rubs GI Palpation (GI): Soft to palpation Back/Spine/Pelvis Other: unremarkable Skin General skin exam: no rashes or lesions noted Neuro General: patient oriented x3 Extrem Other: L BKA Psych Mental Status: mental status grossly normal Office Procedures Cardiac Device Check Cardiac Device Check Details: Pacemaker interrogated today. Leadless pacemaker. Battery status more than 10 years. Ventricular pacing 100%. No high rate episodes tracked. Normal lead parameters. Overall, normal device function. [id number] Cardiac Device Check, leadless/single lead pacemaker Procedure code (CPT) selection complete EKG Details: EKG with atrial sensed ventricular paced rhythm at 63/Min. [id number], Complete Assessment & Plan Assessment & Plan (1) Paroxysmal atrial fibrillation: Code(s): I48.0 - Paroxysmal atrial fibrillation Category: Medical Plan: History of prior cardioversions and ablations. Most recently, again in atrial flutter with rapid rate and underwent cardioversion 07/2024 Has seen EP at [facility] and pending ablation. He states it has been scheduled for April. Continue amiodarone till ablation. He needs to recheck thyroid. In the past, TSH slightly elevated; T3 slightly reduced and normal free T4. He is no longer taking anticoagulation but he states that he was advised to start anticoagulation about a month or so prior to his ablation date. He will follow up with [facility] EP in that regard. (2) (HFpEF) heart failure with preserved ejection fraction: Code(s): I50.30 - Unspecified diastolic (congestive) heart failure Category: Medical Plan: Stable. No changes. He has got no heart failure symptoms or signs. (3) Presence of Watchman left atrial appendage closure device: Code(s): Z95.818 - Presence of other cardiac implants and grafts Category: Medical Plan: He was on anticoagulation for the cardioversion and it seems that he will need to go back on anticoagulation before the ablation/after for a few weeks. However, long-term just use aspirin. (4) Obstructive sleep apnea: Code(s): G47.33 - Obstructive sleep apnea (adult) (pediatric) Category: Medical Plan: On BiPAP. (5) Preoperative cardiovascular examination: Code(s): Z01.810 - Encounter for preprocedural cardiovascular examination Category: Medical Plan: Plans for cataract surgery noted. May proceed as planned. Low cardiac risk. Coding Level of Care Code Est Pt Level 4 (76634) Complex EM visit Add On G2211 Diagnoses Paroxysmal atrial fibrillation I48.0 (HFpEF) heart failure with preserved ejection fraction I50.30 Presence of Watchman left atrial appendage closure device Z95.818 Obstructive sleep apnea G47.33 Preoperative cardiovascular examination Z01.810 CPT Codes Cardiac Device Check - Cardiac Device 1: [id number] Cardiac Device Check, leadless/single lead pacemaker ([id number]) EKG - CPT: 67647-[id number], Complete ([id number])
[2025-02-07 12:46] VITALS: BP 110/60; PULSE 63
--- OUTSIDE RECORDS SUMMARY | 2025-02-07 12:51 | XMS_ITS | Encounter Summary ---
Author Organization [facility] Address [address] [place] [address] Care Team Providers Care Fur Finisher Tailor Name Role Phone Lee Fabian MD Primary Care Provider Unavail able Vitaliy Fields MD Unavailable Dallas Camjeo MD Unavailable Rolando Lopez MD Unavailable [phone] Cesar Fair MD Unavailable Daisy Her PT Unavailable Encounter Details Date Type Department Care Team (Late st Contact Info) Description 12/15/2024 Scanned Document [facility] [address] [place] [address] Dallas Camejo MD [address] [place] [address] Social History Tobacco Use Types Packs/Day Years Used Date Smoking Tobacco: Former Cigarettes 1 29.4 1 977 - 2004 Smokeless Tobacco: Never Alcohol Use Standard Drinks/Week Comments Yes 21 (1 standard drink = 0.6 oz pu re alcohol) [facility] Utilities Answer Date Recorded In the past 12 months has [employer] electric, gas, oil, or water company threatened [...] any time in the past 12 m [facility], were you homeless or living in a half-way (including now)? No 11/03/2024 Sex and Gender Information Value Date Recorded Sex Assigned at Male 09/03/2024 12:21 PM EST Legal Sex Male 10:12 AM EDT Gender Identity Male 09/03/2024 12:21 PM EST Sexual Orientation Heterosexual (straight) 09/10 7:58 AM EST documented as of this encounter Plan of Treatment Upcoming Encounters Date Type Department Care Team (Late st Contact Info) Description 03/08/2025 3:45 PM EDT Office Visit [facility] [place] [address] Dallas Camejo MD [address] [place] [address] documented as of this encounter Visit Diagnoses Not on filedocumented in this encounter Care Teams Fur Finisher Tailor Relationship Specialty Start Date End Date Lee Fabian MD PCP - General Internal Medicine 09/02/24 Vitaliy Fields MD [address] [place] [address] Cardiovascular Disease 09/02/24 Dallas Camejo MD 7 [place] [address] Surgery, Orthopedic 09/02/24 Rolando Lopez MD [address] Transplant - [address] [place] [address] Physician Nephrology 09/02/24 Cesar Fair MD 85 [facility] [address] [place] [phone] Surgery, Cardiac 11/08/24 Daisy Her, PT 85 [facility] [address] [place] [phone] Swaging Machine OperatorApplications Manager Medicine and Rehabilitation 11/18/24 documented as of this encounter
--- OUTSIDE RECORDS SUMMARY | 2025-02-07 12:51 | XMS_ITS | Encounter Summary ---
Author Organization [facility] Address [address] [place] [address] Care Team Providers Care Coal Deliverer Name Role Phone Lee Fabian MD Primary Care Provider [phone] Reason for Visit * Reason Onset Date Comments Faxed Order 01/03/2025 [facility] (Mis sed Visi) Encounter Details Date Type Department Care Team (Late st Contact Info) Description 01/03/2025 Telephone [facility] [address] [place] [phone] Lee Fabian MD [address] [place] [phone] Faxed Order ( [facility] (Missed Visi)) Social History Tobacco Use Types Packs/Day Years Used Date Smoking Tobacco: Every Day Cigarettes 1 1.5 Started: 08/06/2023; Last attempted to quit: 10/30/2003 [...] encounter Progress Notes * Nani Dickerson - 01/03/2025 11:25 AM EDT Orders from Driss BLACKMAN placed in eLe Fabian MD bin. Please complete and fax back to [phone]. Thank you documented in this encounter Plan of Treatment Upcoming Encounters Date Type Department Care Team (Late st Contact Info) Description 02/24/2025 4:00 PM EDT Office Visit Endocrinology - [address] [address] Geeta Person PA [address] [place] [address] documented as of this encounter Goals Goal Patient Goal Type Associated Problems Recent Progress Patient-Stated? Author Decrease Wound Volume by X% by date (in notes) Care Plan Impaired Tissue On track(01/29/2 025 11:43 AM EST) Susan Allison RN [...] documented as of this encounter Care Teams Coal Deliverer Relationship Specialty Start Date End Date Lee Fabian MD [address] [place] [address] PCP - General Internal Medicine 08/03/24 documented as of this encounter
--- OUTSIDE RECORDS SUMMARY | 2025-02-07 12:51 | XMS_ITS ---
Care Plan Created on: February 07, 2025 Luca Crowe : 1960 Sex: Male Author Organization [facility] Address [address] [place] [address] Phone Care Team Providers Care Tint Layer Name Role Phone Lee Fabian MD Primary Care Provider [phone] Active Problems Problem Noted Date Diagnosed Date Non-pressure chronic ulcer o f other part of left foot with fat layer exposed ([facility] V24, [facility] V28) 10/27/2024 ISTAP type 3 skin tear of left forearm Non-pressure chronic ulcer l eft lower leg, limited to breakdown skin ([facility] V24, [facility] V28) 10/12/2024 Type 2 diabetes mellitus wit h foot ulcer (CODE) ([facility] V24, [facility] V28) 10/06/2024 Surgical wound, non healing 10/06/2024 Abrasion of anterior left lower leg 10/06/2024 Non-pressure chronic ulcer o f other part of left foot limited to breakdown of skin ([facility] V24, [facility] V28) 10/06/2024 Non-pressure chronic ulcer o f other part of left foot with unspecified severity ([facility] V24, [facility] V28) 10/06/2024 Non-pressure chronic ulcer o f left heel and midfoot with bone involvement without evidence of necrosis ([facility] V24, [facility] V28) 10/06/2024 S/P debridement 08/31/2024 Diabetic infection of left foot ([facility] V24, S/[facility] V28) 08/31/2024 Foot infection 08/17/2024 Diabetic ulcer of left heel associated with type 2 diabetes mellitus, with fat layer exposed ([facility] V24, [facility] V28) 08/17/2024 Diabetic ulcer of left heel associated with type 1 diabetes mellitus, with fat layer exposed ([facility] V24, [facility] V28) 08/03/2024 Type 2 diabetes mellitus wit h foot ulcer ([facility] V24, [facility] V28) 08/02/2024 Non-pressure chronic ulcer o f other part of right foot with fat layer exposed ([facility] V24, [facility] V28) 08/02/2024 Charcot's joint, right ankle and foot 08/02/2024 Corns and callosities 08/02/2024 Essential (primary) hypertension 08/02/2024 Peripheral vascular disease, unspecified ([facility] V24) 08/02/2024 Type 2 diabetes mellitus wit h diabetic peripheral angiopathy without gangrene ([facility] V24, [facility] V28) 08/02/2024 Complete atrioventricular block ([facility] V24, CM S/[facility] V28) 05/30/2024 Chronic diastolic heart failure ([facility] V24, CM S/[facility] V28) 04/28/2024 Atypical atrial flutter ([facility] V24, [facility] V2 8) 10/19/2015 Additional Health Concerns Active Problems Noted [...]
--- OUTSIDE RECORDS SUMMARY | 2025-02-07 12:51 | XMS_ITS | Encounter Summary ---
Author Organization [facility] Address [address] [place] [address] Care Team Providers Care Senior Catering Sales Manager Name Role Phone Lee Fabian MD Primary Care Provider Unavail able Vitaliy Fields MD Unavailable [phone] Dallas Camejo MD Unavailable [phone] Rolando Lopez MD Unavailable [phone] Cesar Fair MD Unavailable [phone] Daisy Her PT Unavailable [phone] Encounter Details Date Type Department Care Team (Late st Contact Info) Description 10/19/2024 Scanned Document [facility] [address] [place] [address] [address] Social History Tobacco Use Types Packs/Day Years Used Date Smoking Tobacco: Former Cigarettes 1 29.4 1 977 - 2004 Smokeless Tobacco: Never Alcohol Use Standard Drinks/Week Comments Yes 21 (1 standard drink = 0.6 oz pu re alcohol) [facility] Utilities Answer Date Recorded In the past 12 months has [employer], gas, oil, or water company threatened to [...] in the past 12 m [facility], were you homeless or living in a jail (including now)? No 09/10/2024 Sex and Gender Information Value Date Recorded Sex Assigned at Male 09/03/2024 12:21 PM EST Legal Sex Male 10:12 AM EDT Gender Identity Male 09/03/2024 12:21 PM EST Sexual Orientation Heterosexual (straight) 09/10 7:58 AM EST documented as of this encounter Plan of Treatment Upcoming Encounters Date Type Department Care Team ([facility] st Contact Info) Description 03/08/2025 3:45 PM EDT Office [facility] [place] [address] Dallas Camejo MD [address] [place] [address] documented as of this encounter Visit Diagnoses Not on filedocumented in this encounter 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/10/24 09/16/2024 09/16/2024 11/24/2024 3:08 P M EST R/O Respiratory Disease 11/07/2024 11/07/202410/30 7:06 AM EST R/O Respiratory Disease 11/23/2024 11/23/202410/31 12:00 PM EST documented as of this encounter Care Teams Senior Catering Sales Manager Relationship Specialty Start Date End Date Lee Fabian MD PCP - General Internal Medicine 09/02/24 Vitaily Fields MD [address] [address] Cardiovascular Disease 09/02/24 Dallas Camejo MD [address] [place] [address] Surgery, Orthopedic 09/02/24 Rolando Lopez MD [address] Transplant - Ph [address] [place] [address] Physician Nephrology 09/02/24 Cesar Fair MD [address] [phone] Surgery, Cardiac 11/08/24 Daisy Her, PT [address] [address] Spool WorkerIndustrial Property Appraiser Medicine and Rehabilitation 11/18/24 documented as of this encounter
--- OUTSIDE RECORDS SUMMARY | 2025-02-07 12:51 | XMS_ITS | Clinical Summary ---
Author Organization [facility] Address [address] [facility] [address] [address] Phone Care Team Providers Care Mechanical Product Engineer Name Role Phone Lee Fabian MD Primary Care Provider [phone] Allergies Active Allergy Reactions Criticality Noted Date [...] day Active Melatonin 10 MG tablet Take 10 mg by mouth Active metFORMIN (GLUCOPHAGE) 1000 MG tablet Take 500 mg by mouth 1 (one) time each day with breakfast 4 Active metoprolol succinate XL (TOPROL XL) 25 MG 24 hr tablet Take 50 mg by mouth in the morning and 50 mg in the evening. 4 Active pantoprazole (PROTONIX) 40 MG EC tablet Take 40 mg by mouth 1 (one) time each day Active pravastatin (PRAVACHOL) 20 MG tablet Take 1 tablet by mouth 1 (one) time each day 4 Active pregabalin (LYRICA) 150 MG capsule Take 150 mg by mouth in the morning and 150 mg in the evening. Active cefTRIAXone (ROCEPHIN) 2 g injection 5 Active DAPTOmycin (CUBICIN) 500 MG injection 5 Active Active Problems Problem Noted Date Diagnosed Date Stage 3a chronic kidney disease 06/01/2024 Renal osteodystrophy 06/01/2024 Type 2 diabetes mellitus wit h diabetic chronic kidney disease 04/14/2024 Stage 3b chronic kidney disease 04/14/2024 Diabetes mellitus 01/18/2011 Hypertension 01/18/2011 Encounters Date Type Department Care Team Description 12/15/2024 3:45 PM EDT [facility] Visit [facility] [address] [phone] Rolando Lopez MD Stage 3b chronic kidney disease (HCC) (Primary Dx); Type 2 diabetes mellitus with diabetic chronic kidney disease (HCC); Renal osteodystrophy from Last 3 Months Immunizations Immunization Administration Dates Next Due Influenza (IM) Preservative Free 024,05/20/2017,06/04/2016,06/18,06/19/2010 Influenza, MDCK, PF, Quadrivalent 07/18/2022, Influenza, MDCK, Quadrivalen t, with preservative 06/17/2021,07/08/2018 Influenza, Unspecified 07/08/2023 Pfizer SARS-COV-2 07/08/2023, 1,01/16/2021,12/25 Pneumococcal Polysaccharide 01/05/2017, 6 Shingrix 04/13/2018,12/16/2017 Tdap 04/09/2020,12/16/2017 Social History Tobacco Use Types Packs/Day Years Used Date Smoking Tobacco: Never Assessed Sex and Gender Information Value Date Recorded Sex Assigned at Not on file Legal Sex Male 4:51 PM EST Gender Identity Not on file Sexual Orientation Not on file Last Filed Vital Signs Vital Sign Reading Time Taken Comments Blood Pressure 126/60 12/15/2024 4:00 PM EDT Pulse 65 12/15/2024 4:00 PM EDT Temperature - - Respiratory Rate - - Oxygen Saturation 94% 12/15/2024 4:00 PM EDT Inhaled Oxygen Concentration - - Weight 98 kg (216 lb) 12/15/2024 4:00 PM EDT Height - - Body Mass Index - - Plan of Treatment Upcoming Encounters Date Type Department Care Team (Late st Contact Info) Description 05/17/2025 11:30 AM EDT Office Visit [facility] [place] [address] [address] Marlin Zarate ARNP [address] [address] Health Maintenance Due Date Last Done Comments Colorectal Cancer Screening: Annual FOBT 2009 Colorectal Cancer Screening: Colonoscopy 2009 Colorectal Cancer Screening: Sigmoidoscopy 2009 Pneumococcal Vaccine: 50+ Years (3 of 3 - PCV) 01/05/2018 01/05/2017, 11/11/2015 Diabetes: Ophthalmology Exam 01/22/2024 11/11/2016, 11/07/2015, 10/17/2006 Diabetes: Pedal Pulse Checked 01/22/2024 Diabetes: Sensory Foot Exam 01/22/2024 Diabetes: Visual Foot Exam 01/22/2024 Diabetes: Hemoglobin A1C 12/02/202409/03/ 024, 07/22/2024, 04/28/2024, Additional history exists Pneumococcal Vaccine: Peds (0 to 5 Years) and At-Risk Patients (6 to 49 Years) Discontinued 01/05/2017, 11/11/2015 Influenza Vaccine Completed 06/22/2024, , 07/18/2022, Additional history exists Hepatitis B Vaccine Aged Out No longe r eligible based on patient's age to complete this topic Insurance [employer] [facility] Adv PPO ([id number]) [employer] [facility] Adv PPO ([id number]) Care Teams Mechanical Product Engineer Relationship Specialty Start Date End Date Lee Fabian MD PCP - General Internal Medicine 01/21/24
--- OUTSIDE RECORDS SUMMARY | 2025-02-07 12:51 | XMS_ITS | Encounter Summary ---
Author Organization [facility] Address [address] [place] [address] Care Team Providers Care Veneer Clipper Name Role Phone Lee Fabian MD Primary Care Provider Unavail able Vitaliy Fields MD Unavailable [phone] Dallas Camejo MD Unavailable [phone] Rolando Lopez MD Unavailable [phone] Cesar Fair MD Unavailable [phone] Daisy Her PT Unavailable [phone] Encounter Details Date Type Department Care Team (Late st Contact Info) Description 12/07/2024 Scanned Document [facility] [address] [place] [address] [address] Social History Tobacco Use Types Packs/Day Years Used Date Smoking Tobacco: Former Cigarettes 1 29.4 1 977 - 2004 Smokeless Tobacco: Never Alcohol Use Standard Drinks/Week Comments Yes 21 (1 standard drink = 0.6 oz pu re alcohol) [facility] Utilities Answer Date Recorded In the past 12 months has [employer], gas, oil, or water company threatened to [...] Upcoming Encounters Date Type Department Care Team ([facility] st Contact Info) Description 03/08/2025 3:45 PM EDT Office [place] [address] Dallas Camejo MD [address] [place] [address] documented as of this encounter Visit Diagnoses Not on filedocumented in this encounter Care Teams Veneer Clipper Relationship Specialty Start Date End Date Lee Fabian MD PCP - General Internal Medicine 09/02/24 Vitaliy Fields MD [address] [address] Cardiovascular Disease 09/02/24 Dallas Camejo MD 7 [place] [address] Surgery, Orthopedic 09/02/24 Rolando Lopez MD [address] Transplant - Ph 14 [place] [address] Physician Nephrology 09/02/24 Cesar Fair MD [address] [phone] Surgery, Cardiac 11/08/24 Daisy Her, PT 85 [facility] [address] [place] [id number] Application Programmer AnalystRecreation Leader Medicine and Rehabilitation 11/18/24 documented as of this encounter
--- OUTSIDE RECORDS SUMMARY | 2025-02-07 12:51 | XMS_ITS | Encounter Summary ---
Author Organization [facility] Address [address] [place] [address] Care Team Providers Care Hvac Technician Residential Name Role Phone Lee Fabian MD Primary Care Provider Unavail able Vitaliy Fields MD Unavailable Dallas Camejo MD Unavailable Rolando Lopez MD Unavailable [phone] Cesar Fair MD Unavailable [phone] Daisy Her PT Unavailable Encounter Details Date Type Department Care Team (Late st Contact Info) Description 09/17/2024 Documentation [facility] IP [address] [place] [address] Dallas Camejo MD 7 [place] [address] Social History Tobacco Use Types Packs/Day Years Used Date Smoking Tobacco: Former Cigarettes 1 29.4 1 977 - 2004 Smokeless Tobacco: Never Alcohol Use Standard Drinks/Week Comments Yes 21 (1 standard drink = 0.6 oz pu re alcohol) [facility] Utilities Answer Date Recorded In the past 12 months has [employer], gas, oil, or water [employer] threatened to shut off services in your [...] any time in the past 12 m [facility], were you homeless or living in a custodial (including now)? 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/10/24 09/16/2024 09/16/2024 11/24/2024 3:08 P M EST R/O Respiratory Disease 11/07/2024 11/07/202410/30 7:06 AM EST R/O Respiratory Disease 11/23/2024 11/23/202410/31 12:00 PM EST documented as of this encounter Care Teams Hvac Technician Residential Relationship Specialty Start Date End Date Lee Fabian MD PCP - General Internal Medicine 09/02/24 Vitaliy Fields MD [address] [address] Cardiovascular Disease 09/02/24 Dallas Camejo MD 7 [place] [address] Surgery, Orthopedic 09/02/24 Rolando Lopez MD [address] Transplant - Ph 14 [place] [address] Physician Nephrology 09/02/24 Cesar Fair MD [address] [address] Surgery, Cardiac 11/08/24 Daisy Her, PT 85 [facility] [address] [place] [id number] American Sign Language InterpreterNaval Police Coxswain Medicine and Rehabilitation 11/18/24 documented as of this encounter
--- OUTSIDE RECORDS SUMMARY | 2025-02-07 12:51 | XMS_ITS | Encounter Summary ---
Author Organization [facility] Address [address] [place] [address] Care Team Providers Care Metallurgical Lab Technician Name Role Phone Lee Fabian MD Primary Care Provider Unavail able Vitaliy Fields MD Unavailable [phone] Dallas Camejo MD Unavailable [phone] Rolando Lopez MD Unavailable [phone] Cesar Fair MD Unavailable [phone] Daisy Her PT Unavailable [phone] Encounter Details Date Type Department Care Team (Late st Contact Info) Description 10/19/2024 Scanned Document [facility] [address] [place] [address] [address] [address] Social History Tobacco Use Types Packs/Day Years Used Date Smoking Tobacco: Former Cigarettes 1 29.4 1 977 - 2004 Smokeless Tobacco: Never Alcohol Use Standard Drinks/Week Comments Yes 21 (1 standard drink = 0.6 oz pu re alcohol) [facility] Utilities Answer Date Recorded In the past 12 months has [employer], gas, oil, or water company threatened [...] in the past 12 m [facility], were you homeless or living in a retirement (including now)? No 09/10/2024 Sex and Gender Information Value Date Recorded Sex Assigned at Male 09/03/2024 12:21 PM EST Legal Sex Male 10:12 AM EDT Gender Identity Male 09/03/2024 12:21 PM EST Sexual Orientation Heterosexual (straight) 09/10 7:58 AM EST documented as of this encounter Plan of Treatment Upcoming Encounters Date Type Department Care Team ([facility] st Contact Info) Description 03/08/2025 3:45 PM EDT Office Visit [facility] [place] [address] Dallas Camejo MD [address] [place] [address] documented as of this encounter Visit Diagnoses Not on filedocumented in this encounter 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/10/24 09/16/2024 09/16/2024 11/24/2024 3:08 P M EST R/O Respiratory Disease 11/07/2024 11/07/202410/30 7:06 AM EST R/O Respiratory Disease 11/23/2024 11/23/202410/31 12:00 PM EST documented as of this encounter Care Teams Metallurgical Lab Technician Relationship Specialty Start Date End Date Lee Fabian MD PCP - General Internal Medicine 09/02/24 Vitaliy Fields MD [address] [address] Cardiovascular Disease 09/02/24 Dallas Camejo MD [address] [place] [address] Surgery, Orthopedic 09/02/24 Rolando Lopez MD [address] - Ph 14 [place] [address] Physician Nephrology 09/02/24 Cesar Fair MD [address] [phone] Surgery, Cardiac 11/08/24 Daisy Her, PT [address] [address] Powertrain Calibration EngineerGalvanometer Assembler Medicine and Rehabilitation 11/18/24 documented as of this encounter
--- OUTSIDE RECORDS SUMMARY | 2025-02-07 12:51 | XMS_ITS | Clinical Summary ---
Author Organization [facility] Address [address] [place] [address] Phone Care Team Providers Care Outdoor Recreation Specialist Name Role Phone Lee Fabian MD Primary Care Provider [phone] Allergies Active Allergy Reactions Criticality Noted Date Comments Lisinopril Hyperkalemia,Dehydra tion, Hives,Other,GI intolerance 09/12/2017 hyperkalemia Other reaction(s): Other (See Comments) hyperkalemia hyperkalemia Other Reaction(s): KIDNEY DAMAGE Medications acetaminophen (TYLENOL) 325 mg tablet Take 2 tablets (650 mg total) by mouth every 6 hours as needed. 04/03/20 18 Active FreeStyle Wallace 3 Sensor device 1 EA. 06/30/20 24 Active bumetanide (BUMEX) 2 mg tablet Take 1 tablet (2 mg total) by mouth 1 (one) time each day. Active glipiZIDE 2.5 mg tablet Take 1 tablet by mouth 2 (two) times a day. 05/06/20 24 Active magnesium aspart,citrate ,oxide (Triple Magnesium Complex) 400 mg magnesium capsule Take 1 capsule by mouth 1 (one) time each day. Active nicotine (NICODERM CQ) 7 mg/[address] 1 patch on the skin 1 (one) time each day at the same time. 05/24/20 24 Active donepeziL (ARICEPT) 10 mg tablet Take 1 tablet (10 mg total) by mouth 1 (one) time each day. 10/20/19 24 Active pantoprazole (PROTONIX) 40 mg EC tablet Take 1 tablet (40 mg total) by mouth 1 (one) time each day. Active pregabalin (LYRICA) 150 mg capsule Take 1 capsule (150 mg total) by mouth 2 (two) times a day. Active metoprolol tartrate (LOPRESSOR) 50 mg tablet Take 1 tablet (50 mg total) by mouth 2 (two) times a day. Active aspirin 81 mg EC tablet Take 1 tablet (81 mg total) by mouth 1 (one) time each day. 30 each 11 09/01/20 24 025 Active amiodarone (PACERONE) 200 mg tablet Take 1 tablet (200 mg total) by mouth 2 (two) times a day. 180 each 3 08/31/20 24 025 Active oxyCODONE (ROXICODONE) 5 mg immediate release tablet Take 1 tablet (5 mg total) by mouth every 6 (six) hours if needed for moderate pain. 09/16/20 24 Active buPROPion SR (WELLBUTRIN SR) 150 mg 12 hr tablet Take 1 tablet (150 mg total) by mouth 2 (two) times a day. Do not crush, chew, or split. 60 each 1 10/29/19 25 Active amLODIPine (NORVASC) 5 mg tablet Take 1 tablet (5 mg total) by mouth 1 (one) time each day. 11/26/19 25 Active folic acid (FOLVITE) 1 mg tablet Take 1 tablet (1,000 mcg total) by mouth 1 (one) time each day. Active gabapentin (NEURONTIN) 100 mg capsule Take 1 capsule (100 mg total) by mouth 3 (three) times a day. Active Jardiance 25 mg tablet Take 1 tablet (25 mg total) by mouth 1 (one) time each day. 30 tablet 12/28/19 25 Active metFORMIN (GLUCOPHAGE) 500 mg tablet TAKE ONE TABLET BY MOUTH TWICE DAILY AT 9AM & 5PM WITH FOOD 60 tablet 01/15/20 25 Active glucose blood test stripIndicatio ns:Type 2 diabetes mellitus with diabetic peripheral angiopathy without gangrene, unspecified whether parts counterman insulin use ([facility] V24, CMS/HCC V28) Use to test blood sugar twice daily or as instructed 100 each 3 02/08/20 25 Active lancets lancets Use to test blood sugar twice daily or as instructed 100 each 3 02/08/20 25 Active blood-glucose meter kit Use to test blood sugar twice daily or as instructed 1 each 02/08/20 25 Active metFORMIN (FORTAMET) 500 mg 24 hr tablet Take 1 tablet (500 mg total) by mouth 1 (one) time each day with dinner. Do not crush, chew, or split. 025 Discontinued glucose blood test stripIndicatio ns:Type 2 diabetes mellitus with diabetic peripheral angiopathy without gangrene, unspecified whether parts counterman insulin use ([facility] V24, [facility] V28) Use to test blood sugar twice daily or as instructed 100 each 3 02/04/20 25 025 Discontinued(Re order) Active Problems Problem Noted Date Diagnosed Date Non-pressure chronic ulcer o f other part of left foot with fat layer exposed ([facility] V24, [facility] V28) 10/27/2024 ISTAP type 3 skin tear of left forearm Non-pressure chronic ulcer l eft lower leg, limited to breakdown skin ([facility] V24, [facility] V28) 10/12/2024 Type 2 diabetes mellitus wit h foot ulcer (CODE) ([facility] V24, [facility] V28) 10/06/2024 Surgical wound, non healing 10/06/2024 Abrasion of anterior left lower leg 10/06/2024 Non-pressure chronic ulcer o f other part of left foot limited to breakdown of skin ([facility] V24, [facility] V28) 10/06/2024 Non-pressure chronic ulcer o f other part of left foot with unspecified severity ([facility] V24, [facility] V28) 10/06/2024 Non-pressure chronic ulcer o f left heel and midfoot with bone involvement without evidence of necrosis ([facility] V24, [facility] V28) 10/06/2024 S/P debridement 08/31/2024 Diabetic infection of left foot ([facility] V24, S/[facility] V28) 08/31/2024 Foot infection 08/17/2024 Diabetic ulcer of left heel associated with type 2 diabetes mellitus, with fat layer exposed ([facility] V24, [facility] V28) 08/17/2024 Diabetic ulcer of left heel associated with type 1 diabetes mellitus, with fat layer exposed ([facility] V24, [facility] V28) 08/03/2024 Type 2 diabetes mellitus wit h foot ulcer ([facility] V24, [facility] V28) 08/02/2024 Non-pressure chronic ulcer o f other part of right foot with fat layer exposed ([facility] V24, [facility] V28) 08/02/2024 Charcot's joint, right ankle and foot 08/02/2024 Corns and callosities 08/02/2024 Essential (primary) hypertension 08/02/2024 Peripheral vascular disease, unspecified ([facility] V24) 08/02/2024 Type 2 diabetes mellitus wit h diabetic peripheral angiopathy without gangrene ([facility] V24, [facility] V28) 08/02/2024 Complete atrioventricular block ([facility] V24, [facility] V28) 05/30/2024 Chronic diastolic heart failure ([facility] V24, [facility] V28) 04/28/2024 Atypical atrial flutter ([facility] V24, [facility] V2 8) 10/19/2015 Encounters Date Type Department Care Team Description 01/20/2025 Telephone Internal Medicine - [facility] [address] [place], [place] [phone] Lee Fabian MD information needed 01/12/2025 Telephone Internal Medicine - [facility] [address] [place], [place] [phone] Lee Fabian MD Faxed Order ([facility] (Discharge Summary)) 01/10/2025 Billing Patient Not Present Internal Medicine - [facility] [address] [place], [place] [phone] Lee Fabian MD Encounter for adjustment and management of vascular access device (Primary Dx); Type 2 diabetes mellitus with diabetic peripheral angiopathy without gangrene, unspecified whether parts counterman insulin use ([facility] V24, [facility] V28); Atherosclerosis of kenaitze artery of both lower extremities, with unspecified presence of clinical manifestation ([facility] V24); Type 2 diabetes mellitus with diabetic neuropathic arthropathy, unspecified whether residential insulin use ([facility] V24, [facility] V28); Hypertensive heart and chronic kidney disease with heart failure and stage 1 through stage 4 chronic kidney disease, or unspecified chronic kidney disease ([facility] V24, [facility] V28); Chronic diastolic (congestive) heart failure ([facility] V24, [facility] V28); Type 2 diabetes mellitus with diabetic chronic kidney disease, unspecified CKD stage, unspecified whether residential insulin use ([facility] V24, [facility] V28); Chronic kidney disease, stage 3a ([facility] V24, [facility] V28); Paroxysmal atrial fibrillation ([facility] V24, [facility] V28); Nonrheumatic mitral (valve) insufficiency 01/05/2025 [facility] [phone] Lee Fabian MD Faxed Order ( [facility] (Certification/POC 12/30/24-02/27/25)) 01/03/2025 [facility] [phone] Lee Fabian MD Faxed Order ( [facility] (Missed Visi)) 12/27/2024 [facility] [address] [phone] Lee Fabian MD Faxed Order ([facility]) 12/15/2024 [facility] [phone] Lee Fabian MD Faxed Order ([facility]) 12/14/2024 [facility] [address] [phone] Lee Fabian MD Request For Order(s) ([facility]) 12/08/2024 [facility] [phone] Todd Stacy [place] Fitting for DME 12/06/2024 10:30 AM EDT Office Visit Internal Medicine - [address] [phone] Lee Fabian MD Type 2 diabetes mellitus with foot ulcer, unspecified whether parts counterman insulin use ([facility] V24, [facility] V28) (Primary Dx); Memory impairment; Hearing loss, unspecified hearing loss type, unspecified laterality; Other cerebral infarction ([facility] V24, [facility] V28) 12/03/2024 Telephone Internal Medicine - [address] [phone] Sara Valero RN glucose (Call from Charles from [facility] Crit[facility]) 12/02/2024 Telephone Internal Medicine - [address] [phone] Lee Fabian MD Faxed Order ([facility]) 12/02/2024 Telephone Internal Medicine - [address] [phone] Lee Fabian MD Faxed Order ([facility] ) 2024 Telephone Internal Medicine - [address] [phone] Lee Fabian MD Faxed Order ([facility] ) 2024 Telephone Internal Medicine - [address] [phone] Lee Fabian MD Hospital Follow-up 11/26/2024 [facility] [phone] Lee Fabian MD Faxed Order ([facility] ) 11/19/2024 Telephone Infectious Disease [address] [phone] Marlin Keene RN 11/12/2024 Telephone Internal Medicine - [facility] [address] [place] [phone] Lee Fabian MD Request For Order(s) ([facility] ) 11/11/2024 Billing Patient Not Present Internal Medicine - [facility] [address] [place] [phone] Lee Fabian MD Encounter for change or removal of surgical wound dressing (Primary Dx); Encounter for surgical aftercare following surgery on the skin and subcutaneous tissue; Type 2 diabetes mellitus with other specified complication, unspecified whether residential insulin use ([facility] V24, [facility] V28); Other acute osteomyelitis, left ankle and foot ([facility] V24, [facility] V28); Type 2 diabetes mellitus with diabetic peripheral angiopathy with gangrene, unspecified whether residential insulin use ([facility] V24, [facility] V28); 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 ([facility] V24, [facility] V28); Other specified bacterial agents as the cause of diseases classified elsewhere; Type 2 diabetes mellitus with foot ulcer, unspecified whether parts counterman insulin use ([facility] V24, [facility] V28); Non-pressure chronic ulcer of right heel and midfoot with fat layer exposed ([facility] V24, [facility] V28); Type 2 diabetes mellitus with diabetic neuropathic arthropathy, unspecified whether parts counterman insulin use ([facility] V24, [facility] V28) from Last 3 Months Immunizations Name Administration [...] disease 05/30/2024 DX:Gastroesophageal reflux disease Atrial fibrillation (CMS/HCC V24, CMS/HCC V28) 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 (CMS/HCC V24, CMS/HCC V28) Family History Medical History Relation Name Comments [...] 4:00 PM EDT Office Visit Endocrinology - [place] [address] [place] [address] Geeta Person PA [address] [place] [phone] Health Maintenance Due Date Last Done Comments [...] Zoster Vaccines Completed 04/13/2018, 12/16/2017 RSV Immunization Adult Patients Completed 10/28/2023 Influenza Vaccine Completed 06/22/2024, , [...] age to complete this topic Meningococcal B Vaccine Aged Out No l onger eligible based on patient's age to complete [...] of smoking on wound uSsan Allison RN Decrease Wound Volume by X% by date (in notes) Care Plan Education needed on impact of smoking on wound Susan Allison RN Patient and Caregiver Understand Wound Care Education Care Plan Education needed related to ulceration/compr omised skin integrity. Susan Allison RN Medical Devices Implanted Type Area News Video Editor Device Identifier Shelf Expiration Date Model / Serial / Lot Cardiac Pacemaker Cardiac Pacemaker Left: Shoulder [employer] - CARDIAC [facility] Procedures Procedure Name Priority Date/Time Associated Diagnosis Comments EXTERNAL AUDIOLOGY REPORT 01/03/2025 EXTERNAL INTERVENTIONAL RAD REPORT 11/22/2024 COMPREHENSIVE METABOLIC PANEL Routine 10/15/2024 10:37 AM EST Elevated liver enzymes Non-healing non-surgical wound Diabetes 1.5, managed as type 2 (CMS/HCC V24, CMS/HCC V28) Atrial fibrillation, unspecified type (CMS/HCC V24, CMS/HCC V28) LIPID PANEL WITH REFLEX TO DIRECT LDL Routine 08/20/2024 6:25 AM EST HEMOGLOBIN A1C Routine 07/22/2024 URINE ALBUMIN CREATININE RATIO Routine 04/14/2024 DIABETES EYE EXAM Routine 03/17/2024 COLONOSCOPY Routine 05/12/2023 HEPATITIS C SCREENING Routine 12/24/2017 from Last 3 Months or Most Recently Relevant to Health Maintenance Results * External Audiology Report (01/03/2025) us Provider [facility] ORDER JOSE Final Result * External Interventional Rad Report (11/22/2024) Anatomical Region Laterality Modality Interventional R adiology us Provider [facility] IMG IR PROCEDURES Final Result * Lipid panel with reflex to direct LDL (08/20/2024 6:25 AM EST) Cholesterol 123 0 - 200 mg/dL LAB CHEMISTRY METHOD 08/20/2024 7:39 AM EST [facility] Triglycerides 102 0 - 150 mg/dL LAB CHEMISTRY METHOD 08/20/2024 7:39 AM EST [facility] HDL 53 >=40 mg/dL LAB CHEMISTRY METHOD 08/20/2024 7:39 AM EST [facility] LDL Calculated 50 0 - 100 mg/dL LAB CHEMISTRY METHOD 08/20/2024 7:39 AM [facility] VLDL Cholesterol Linus 20.4 mg/dL LAB CHEMISTRY METHOD 08/20/2024 7:39 AM EST [facility] Non HDL Chol. (LDL+VLDL) 70 <145 mg/dL LAB CHEMISTRY METHOD 08/20/2024 7:39 AM EST [facility] Chol/HDL Ratio 2.3 0.0 - 4.4 LAB CHEMISTRY METHOD 08/20/2024 7:39 AM EST [facility] Blood Venous blood specimen / Unknown Venipuncture / Unknown 08/20/2024 6:25 AM EST 08/20/2024 7:03 AM EST Result [facility] Jefferson Rendon MD LAB BLOOD ORDERABLES Final Resu lt [facility] [address] [place] [address], * (ABNORMAL) Hemoglobin A1c (07/22/2024) [facility] Hemoglobin A1C 8.7(A) <=6.5 % Blood Venous blood specimen / Unknown Result [facility] Provider LAB BLOOD ORDERABLES Adlila l Result * Urine Albumin Creatinine Ratio (04/14/2024) [facility] Urine Albumin Creatinine Ratio Abstracted Result [facility] Provider HEALTH MAINTENANCE Final Result * Diabetes Eye Exam (03/17/2024) [facility] Diabetes: Annual Retina Eye Exam Abstracted Result [facility] Historical Provider HEALTH MAINTENANCE Final Result * Colonoscopy (05/12/2023) [facility] Colonoscopy No Interpretation , Abstracted Anatomical Region Laterality Modality Other Result [facility] Provider HEALTH MAINTENANCE Final Result * Hepatitis C Screening (12/24/2017) [facility] Hepatitis C Screening Abstracted Result [facility] Provider HEALTH MAINTENANCE Final Result from [...] Documents on File Type Date Recorded Patient Valve Repairer Reclamation Expl anation Health Care Decision (hx) 02/14/2018 [...] DIRECTIVE Health Care Decision (hx) 02/14/2018 AD AHYES DIRECTIVE Health Care Decision (hx) 02/14/2018 AD [...] currently active code status orders. Care Teams Outdoor Recreation Specialist Relationship Specialty Start Date End Date Lee Fabian MD [address] [place] [phone] PCP - General Internal Medicine 08/03/24
--- OUTSIDE RECORDS SUMMARY | 2025-02-07 12:52 | XMS_ITS | Clinical Summary ---
Author Organization [facility] Address [address] [place] [address] Care Team Providers Care Templer Head Name Role Phone Monty Matthews MD Primary Care Provider Unavail able Vitaliy Fields MD Unavailable Dallas Camejo MD Unavailable Rolando Lopez MD Unavailable Cesar Fair MD Unavailable Daisy Her PT Unavailable Allergies Active Allergy Reactions Criticality Noted Date Comments Lisinopril Other (See Comments) 09/03/2024 Dehydration Medications bumetanide (BUMEX) 2 MG tablet Take 1 tablet (2 mg total) by mouth daily. Active Jardiance 25 MG tablet Take 1 tablet (25 mg total) by mouth daily. 4 Active donepezil (ARICEPT) 10 MG tablet Take 1 tablet (10 mg total) by mouth every morning. 4 Active glipiZIDE (GLUCOTROL) 2.5 mg tablet Take 1 tablet (2.5 mg total) by mouth 2 times a day. 4 Active metoPROLOL TARTRATE (LOPRESSOR) 50 MG tablet Take 1 tablet (50 mg total) by mouth 2 times a day. Active Continuous Glucose Sensor (FreeStyle Wallace 3 Sensor) [facility] INJECT 1 DEVICE INTO THE SKIN EVERY 14 DAYS 4 Active melatonin 10 MG Tab tablet Take 5 mg by mouth nightly. Active nicotine (NICODERM CQ) 7 MG/24HR patch Place 1 patch on the skin daily. 4 Active cyanocobalamin 2500 MCG Tab Take 1 tablet (2,500 mcg total) by mouth daily. Active Cholecalciferol (Vitamin D-3) 125 MCG (5000 UT) Tab Take 2 tablets by mouth every morning. Active metFORMIN (GLUCOPHAGE) 1000 MG tablet Take 0.5 tablets (500 mg total) by mouth every morning with breakfast. 4 Active metFORMIN (GLUCOPHAGE) 500 MG tablet Take 1 tablet (500 mg total) by mouth every morning with breakfast. Active ascorbic acid (VITAMIN C) 500 MG tabletIndications: Other chronic osteomyelitis of foot, unspecified laterality (HCC) Take 1 tablet (500 mg total) by mouth daily. 14 tablet 4 Active senna (SENOKOT) 8.6 MG Tab tabletIndications: Other chronic osteomyelitis of foot, unspecified laterality (HCC) Take 2 tablets by mouth daily as needed for constipation. 14 tablet 4 Active polyethylene glycol (miraLAx) 17 g packetIndications: Other chronic osteomyelitis of foot, unspecified laterality (HCC) Take 1 packet (17 g total) by mouth daily. 10 packet 4 Active acetaminophen (TYLENOL) 325 MG tabletIndications: Other chronic osteomyelitis of foot, unspecified laterality (HCC) Take 3 tablets (975 mg total) by mouth 4 times daily (every 6 hours) as needed for mild pain. 168 tablet 4 Active methocarbamol (ROBAXIN) 500 MG tabletIndications: Other chronic osteomyelitis of foot, unspecified laterality (HCC) Take 1 tablet (500 mg total) by mouth 4 (four) times a day as needed for muscle spasms. 20 tablet 4 Active oxyCODONE (ROXICODONE) 5 MG immediate release tabletIndications: Other chronic osteomyelitis of foot, unspecified laterality (HCC) Take 1-2 tablets (5-10 mg total) by mouth every 4 (four) hours as needed for severe pain. Max Daily Amount: 60 mg 42 tablet 5 Active DAPTOmycin-Sodium Chloride 700-0.9 MG/100ML-% SolutionIndication s:Acute osteomyelitis of left calcaneus (HCC) Infuse 975 mg into a venous catheter daily. 5 Active erythromycin (ILOTYCIN) ophthalmic ointmentIndication s:Acute bacterial conjunctivitis of right eye Administer 1 application(s) to the right eye 4 (four) times a day. 1 g 5 Active buPROPion (WELLBUTRIN SR) 150 MG 12 hr tabletIndications: Endocarditis Take 1 tablet (150 mg total) by mouth 2 (two) times a day in the morning and the early evening.. 60 tablet 5 Active aspirin enteric coated (ECOTRIN LOW STRENGTH) 81 MG EC tabletIndications: Endocarditis Take 1 tablet (81 mg total) by mouth daily. 30 tablet 5 Active pregabalin (LYRICA) 100 MG capsuleIndications :Endocarditis Take 1 capsule (100 mg total) by mouth 3 (three) times a day. 90 capsule 5 Active amLODIPine (NORVASC) 5 MG tabletIndications: Endocarditis Take 1 tablet (5 mg total) by mouth daily. 30 tablet 5 Active amiODARONE (PACERONE) 200 MG tabletIndications: Endocarditis Take 1 tablet (200 mg total) by mouth daily. 30 tablet 5 Active folic acid (FOLVITE) 1 MG tabletIndications: Endocarditis Take 1 tablet (1 mg total) by mouth daily. 30 tablet 5 Active methocarbamol (ROBAXIN) 500 MG tabletIndications: Below-knee amputation of left lower extremity, initial encounter ([facility]) Take 1 tablet (500 mg total) by mouth 4 (four) times a day. 28 tablet 5 Active HYDROmorphone (DILAUDID) 2 MG tabletIndications: Below-knee amputation of left lower extremity, initial encounter ([facility]) Take 1 tablet (2 mg total) by mouth 4 times daily (every 6 hours) as needed for severe pain or moderate pain. Max Daily Amount: 8 mg 28 tablet 5 Active SUPPLY DME MISCIndications:Be low-knee amputation of left lower extremity, initial encounter ([facility]) BELOW KNEE PROSTHESIS S/P LEFT BKA 11/05/24 1 each 5 Active PANTOprazole (PROTONIX) 40 MG EC tabletIndications: Gastroesophageal reflux disease without esophagitis Take 1 tablet (40 mg total) by mouth daily. 30 tablet 5 Active SUPPLY DME MISCIndications:Pr imary osteoarthritis of right knee Right hinged knee brace 1 each 5 Active Active Problems Problem Noted Date Diagnosed Date Amputation of left lower extremity below knee Bacteremia 11/06/2024 Presence of permanent cardiac pacemaker [...] nephrotoxic medications. Follows with Dr. Lopez in [place]. See last note 06/07/24. Hyperlipidemia Assessment & Plan (09/03/2024 9:20 AM EST): Continue pravastatin. Smoker Assessment & Plan (09/03/2024 9:21 AM EST): Smoking? Complete AV block Assessment & Plan (09/03/2024 9:22 AM EST): S/p pacemaker & watchman device. No remote monitoring per last cardiology note. Cardiology appt pending. Atrial flutter Encounters Date Type Department Care Team Description 01/27/2025 9:00 AM EDT Telemedicine [facility] Infectious Disease [address] [place] [address] Ena Mtz MD Endocarditis of mitral valve (Primary Dx); Bacteremia; Multiple drug resistant organism (MDRO) culture positive 01/25/2025 3:30 PM EDT [facility] Visit [facility] [address] [place] [address] Sheila Childs APRN Below-knee amputation of left lower extremity, subsequent encounter (Primary Dx) 01/19/2025 Orders Only [facility] [address] [place], [place] [address] [place] [address] Ena Mtz MD 01/18/2025 11:20 AM EDT Ancillary Procedure [facility] [address] [place] [address] 01/18/2025 10:45 AM EDT Consult [facility] [address] [address] Manuel Mesa MD Primary osteoarthritis of right knee (Primary Dx) 12/28/2024 1:30 PM EDT [facility] [address] [address] Sheila Childs APRN Below-knee amputation of left lower extremity, subsequent encounter (Primary Dx) 12/24/2024 Orders Only [address] [address] Ena Mtz MD 12/23/2024 Telephone [facility] Infectious Disease [address] [place] [phone] Ena Mtz MD 12/22/2024 9:35 AM EDT Anesthesia Event [facility] Heart & Vascular [facility] - Echocardiography Laboratory [address] [place] [address] Yadiel Ni DO Ficara, Omega Kemp PA-C 12/22/2024 8:46 AM EDT - 12/22/2024 11:59 PM EDT Hospital Encounter [facility] Heart & Vascular [facility] - Echocardiography Laboratory [address] [place] [address] Ena Mtz MD Discharge Disposition: Home or Self Care 12/17/2024 Orders Only [address] [address] Ena Mtz MD 12/16/2024 8:30 AM EDT Office Visit [facility] Infectious Disease [address] [place] [phone] Ena Mtz MD Gastroesophageal reflux disease without esophagitis (Primary Dx); Endocarditis of mitral valve; Bacteremia; Multiple drug resistant organism (MDRO) culture positive 12/16/2024 Orders Only [address] [place] [phone] Ena Mtz MD Endocarditis of mitral valve 12/16/[address] [address] Krystina Hobbs RN 12/16/2024 Travel 12/15/2024 Scanned Document [facility] [address] [place] [address] Dallas Camejo MD 12/14/2024 2:00 PM EDT [facility] [address] [address] Dallas Camejo MD Below-knee amputation of left lower extremity, subsequent encounter (Primary Dx) 12/07/2024 1:30 PM EDT - 12/07/2024 11:59 PM EDT Hospital Encounter [facility] Heart & Vascular [place] - Electrophysiology [address] [facility] [place] [phone] Gretel Hinds, DINING CAR WAITER/WAITRESS Discharge Disposition: Home or Self Care 12/07/2024 Scanned Document [facility] [address] [address] Alejandra Eddy 12/07/2024 Travel 12/07/[address] [facility] [address] [place] [address] Ena Mtz MD 12/02/[address] [place] [phone] Christen Whitney MA Referral 12/01/2024 Orders Only [facility] [address] [place] [phone] Dallas Camejo MD Below-knee amputation of left lower extremity, initial encounter (HCC) (Primary Dx) 12/01/2024 Documentation [facility] Physical Medicine and Rehab [place] [address] [address] [place] [address] Daisy Her, PT 11/30/2024 1:15 PM EST Office Visit [facility] [address] [place] [address] Sheila Childs APRN Below-knee amputation of left lower extremity, initial encounter (HCC) (Primary Dx) 11/23/2024 Telephone [facility] Infectious Disease [address] [place] [address] Nilton Zepeda MA Call Patient 11/19/2024 1:30 PM EST - 11/19/2024 2:30 PM EST Surgery [facility] Radiology [address] [place] [address] Devon Vogt, CVC INSERT (TUNNEL)W/O PORT > 5 YRS 11/19/2024 Telephone [facility] [address] [place] [address] Nilton Zepeda MA Appointment 11/18/2024 Orders Only [facility] Heart & Vascular [place] [facility] - Electrophysiology Laboratory [address] [place] [phone] Lucho Ceron MD 11/17/2024 2:20 PM EST Anesthesia Event [facility] Perioperative Surgical Services [address] [place] [address] Guido Malagon MD Gordon, Jennifer L, PA-C 11/17/2024 1:37 PM EST - 11/17/2024 4:43 PM EST Surgery [facility] Perioperative Surgical Services [address] [place] [phone] Rui Pabon MD Extraction lead(s) laser from dual PM system; [id number] 11/17/2024 Orders Only [facility] Heart & Vascular [facility] - Electrophysiology [address] [facility] [address] [place] [address] Gretel Hinds APRN Complete AV block (HCC) (Primary Dx); Presence of permanent cardiac pacemaker; Bacteremia 11/11/2024 2:09 PM EST Anesthesia Event [facility] Heart & Vascular [place] [facility] - Echocardiography Laboratory [address] [place] [address] Hong Nance MD 11/11/2024 Travel 11/02/2024 6:10 PM EST - 11/25/2024 7:51 PM EST Hospital Encounter [facility] [address] [place] [address] Dallas Camejo MD Adekolu, MD Zane Mays, MD Kwasi Smith Kamal, MD Iftikhar, MD Bryn Lyons Gagan, MD Madhusudana, MD Marli Barney, MD Zack Olivia, MD Leroy Acute osteomyelitis of left calcaneus (HCC) (Primary Dx); Pacemaker infection, subsequent encounter; Endocarditis; Acute bacterial conjunctivitis of right eye; Bacteremia Discharge Disposition: Home with Health Care Services from Last 3 Months Social History Tobacco Use Types Packs/Day Years Used Date Smoking Tobacco: Former Cigarettes 1 29.4 1 977 - 2003 Smokeless Tobacco: Never Tobacco Cessation:Counseling Given: Yes Alcohol Use Standard Drinks/Week Comments Yes 21 (1 standard drink = 0.6 oz pu re alcohol) [facility] Utilities Answer Date Recorded In the past 12 months has [employer], [employer], oil, or water [employer] threatened to shut off services in your [...] time in the past 12 m [facility], were you homeless or living in a intermediate (including now)? No 11/03/2024 Sex and Gender Information Value Date Recorded Sex Assigned at Male 09/03/2024 12:21 PM EST Legal Sex Male 10:12 AM EDT Gender Identity Male 09/03/2024 12:21 PM EST Sexual Orientation Heterosexual (straight) 09/10 7:58 AM EST Last Filed Vital Signs Vital Sign Reading Time Taken Comments Blood Pressure 140/65 12/22/2024 11:15 AM EDT Pulse 63 12/22/2024 11:15 AM EDT Temperature 36.8 ??C (98.2 ??F) 12/16/2024 8:02 AM ED T Respiratory Rate 16 12/22/2024 11:15 AM EDT Oxygen Saturation 94% 12/22/2024 11:15 AM EDT Inhaled Oxygen Concentration - - Weight 98.2 kg (216 lb 7.9 oz) 11/25/2024 6:40 A M EST Height 190.5 cm (6' 3 ) 11/09/2024 7:57 AM EST Body Mass Index 27.06 11/09/2024 7:57 AM EST Plan of Treatment Upcoming Encounters Date Type Department Care Team (Late st Contact Info) Description 03/08/2025 3:45 PM EDT Office Visit [facility] [place] [address] Dallas Camejo MD [address] [place] [address] Health Maintenance Due Date Last Done Comments [...] Additional history exists Hemoglobin A1C 12/02/2024 09/03/2024 Influenza Vaccine 04/29/2025 06/22/2024, , 07/08/2023, Additional history exists Creatinine with GFR 11/24/2025 11/24/2024, 11/23/2024, 11/22/2024, Additional history exists Hepatitis B Vaccines Aged Out No long er eligible based on patient's age to complete this topic Medical Devices Implanted Type Area Correction Officer Reformatory Device Identifier Shelf Expiration Date Model / Serial / Lot [id number] Pacemaker Cardiac Micra Av2 Ldls Bndl - [id number] Implanted:Qty : 1 on 11/17/2024 by Rui Pabon MD at [facility] Pacemaker Left: Chest [employer] MINIMALLY INVASIVE T [id number] 02/09/2026 [id number] / [id number] / Explanted Type Area Correction Officer Reformatory Device Identifier Shelf Expiration Date Model / Serial / Lot 5076-52 Lead Pacing 52cm 6.2fr 2mm 10mm Spc Sm Straight Atr Vntrc- 6 Implanted:09/30 (Quantity not on file) Explanted:Qty: 1 on 11/17/2024 by Rui Pabon MD Lead [employer] MINIM[employer] INVASIVE T 5076-52 / [id number] / [id number] Lead Pacing 58cm 6.2fr 2mm 10mm Spc Sm Straight Atr Vntrc- 6 Implanted:09/30 (Quantity not on file) Explanted:Qty: 1 on 11/17/2024 by Rui Pabon MD Lead [employer] MINIMALLY INVASIVE T 5076-58 / [id number] / [id number] Pacemaker Cardiac Advisa Dr Lewis Surescan 2 Chamber Digital- 016 Implanted:09/30 (Quantity not on file) Explanted:Qty: 1 on 11/17/2024 by Rui Pabon MD Pacemaker [employer] MINIMALLY INVASIVE T [id number] / [id number] / Procedures Procedure Name Priority Date/Time Associated Diagnosis Comments IR VENOUS ACCESS REMOVAL TUNNELED NO PORT NO PUMP Routine 01/19/2025 10:40 AM EDT XR KNEE 4+ VIEWS-RIGHT Routine 01/18/2025 11:46 AM EDT Primary osteoarthritis of right knee SC ARTHROCENTESIS ASPIR&/INJ MAJOR JT/BURSA W/O US Routine 01/18/2025 10:45 AM EDT Primary osteoarthritis of right knee LAB RESULT Routine 12/24/2024 12:38 PM EDT ECHOCARDIOGRAM TRANSESOPHAGEAL Routine 12/22/2024 10:47 AM EDT Bacteremia LAB RESULT Routine 12/17/2024 9:09 AM EDT LAB RESULT Routine 12/16/2024 10:58 AM EDT PM SINGLE LEAD EVAL WITH PROGRAM,[id number] Routine 12/07/2024 2:14 PM EDT Complete AV [...] AM EST PM SINGLE LEAD EVAL WITH PROGRAM,[id number] Routine 11/18/2024 7:45 AM EST CREATINE KINASE [...] EST Procedure Note - Guido Malagon MD / Danyel Tran MD - 11/17/2024 1:50 PM ESTThis note [...] no mitralvalve stenosis. Leaflet tethering is noted. ? ? Left ventricular systolic function is moderately decreased with anestimated ejection fraction of 35-39%. POST PROCEDURE CONCLUSIONS Findings Technical Details Doppler [...] EST PM DUAL LEAD EVAL WITH PROGRAMMING, [id number] Routine 11/12/2024 1:15 PM EST POCT GLUCOSE, [...] EST PM DUAL LEAD EVAL WITH PROGRAMMING, [id number] Routine 11/11/2024 4:33 PM EST ECHOCARDIOGRAM TRANSESOPHAGEAL [...] WITHOUT DIFFERENTIAL Routine 11/10/2024 12:04 AM EST HEMOGLOBIN A1C WITH ESTIMATED AVERAGE [...] Recently Relevant to Health Maintenance Results * IR VENOUS ACCESS REMOVAL TUNNELED NO PORT NO PUMP (01/19/2025 10:40 AM EDT) Anatomical Region Laterality Modality Other 01/19/2025 11:0 0 AM EDT 01/19/2025 11:00 AM EDT Impressions 01/19/2025 12:05 PM EDT Removal of right-sided tunneled prolonged catheter. PLAN: Please re-consult interventional radiology if new catheter placement is desired. PROCEDURE SUMMARY: - Tunneled central venous catheter removal - Additional procedure(s): None PROCEDURE DETAILS: PRE-PROCEDURE: Consent: Informed consent for the procedure including risks, benefits and alternatives was obtained and time out was performed prior to the procedure. Preparation: The site was prepared and draped using maximal sterile barrier technique including cutaneous antisepsis. ANESTHESIA/SEDATION: Level of anesthesia/sedation: No sedation Anesthesia/sedation administered by: Not applicable Total intra-service sedation time (minutes): 0 CATHETER REMOVAL: The retention sutures were cut and removed. The cuff of the implanted catheter was freed from the ingrowth tissues using traction. Subsequently, the catheter was removed in its entirety.. CLOSURE: Hemostasis was achieved with manual compression. Sterile dressing(s) applied. ADDITIONAL DETAILS: Additional description of procedure: None Equipment details: None Specimens removed: Tunneled central venous catheter. Estimated blood loss (mL): Less than 10 Standardized report: [email or web address] ATTESTATION: Signer name: Ronald Duckworth MD I attest that I was present for the entire procedure. I reviewed the stored images and agree with the report as written. Electronically signed by: ??Ronald Duckworth MD ??01/19/2025 12:05 PM EDT Thank you for referring your patient to us, Alejandro Duckworth M.D. [id number] (Electronically Signed - 01/19/2025 12:05) Copy: MONTY MATTHEWS MD [address] [id number] Narrative 01/19/2025 12:05 PM EDT PROCEDURE: IR TUNNELED CENTRAL VENOUS CATHETER REMOVAL REFERRING PROVIDER: Ena Mtz MD PROCEDURAL PERSONNEL: Attending Physician(s): Alejandro Duckworth MD Resident Physician(s): None Advanced Practice Provider(s): None PREPROCEDURE DIAGNOSIS: Endocarditis POSTPROCEDURE DIAGNOSIS: Same INDICATION: Catheter no longer needed ADDITIONAL CLINICAL HISTORY: None COMPLICATIONS: No immediate complications. Procedure Note Alejandro Duckworth MD - 01/19/2025 PROCEDURE: IR TUNNELED CENTRAL VENOUS CATHETER REMOVAL REFERRING PROVIDER: Ena Mtz MD PROCEDURAL PERSONNEL: Attending Physician(s): Alejandro Duckworth MD Resident Physician(s): None Advanced Practice Provider(s): None PREPROCEDURE DIAGNOSIS: Endocarditis POSTPROCEDURE DIAGNOSIS: Same INDICATION: Catheter no longer needed ADDITIONAL CLINICAL HISTORY: None COMPLICATIONS: No immediate complications. IMPRESSION: Removal of right-sided tunneled prolonged catheter. PLAN: Please re-consult interventional radiology if new catheter placement isdesired. PROCEDURE SUMMARY: - Tunneled central venous catheter removal - Additional procedure(s): None PROCEDURE DETAILS: PRE-PROCEDURE: Consent: Informed consent for the procedure including risks, benefits andalternatives was obtained and time out was performed prior to theprocedure. Preparation: The site was prepared and draped using maximal sterilebarrier technique including cutaneous antisepsis. ANESTHESIA/SEDATION: Level of anesthesia/sedation: No sedation Anesthesia/sedation administered by: Not applicable Total intra-service sedation time (minutes): 0 CATHETER REMOVAL: The retention sutures were cut and removed. The cuff of the implantedcatheter was freed from the ingrowth tissues using traction. Subsequently,the catheter was removed in its entirety.. CLOSURE: Hemostasis was achieved with manual compression. Sterile dressing(s)applied. ADDITIONAL DETAILS: Additional description of procedure: None Equipment details: None Specimens removed: Tunneled central venous catheter. Estimated blood loss (mL): Less than 10 Standardized report: [email or web address] ATTESTATION: Signer name: Ronald Duckworth MD I attest that I was present for the entire procedure. I reviewed thestored images and agree with the report as written. Electronically signed by: Ronald Duckworth MD 01/19/2025 12:05 PM EDT RPWorkstation: [id number] Thank you for referring your patient to us, Alejandro Duckworth M.D. [id number] (Electronically Signed - 01/19/2025 12:05) Copy: MONTY MATTHEWS MD [address] [address] Ena Mtz MD IMG LEGACY PROCEDURES Fi nal Result * XR Knee 4+ views-Right (01/18/2025 11:46 AM EDT) Narrative OA - 01/18/2025 11:46 AM EDT This exam was performed in office at [facility] and images reviewed by orthopedic provider. ??Any findings are documented within ambulatory encounter note on date of service. us Manuel Mesa MD IMG DIAGNOSTIC IMAGING O RDERABLES Final Result OAH * SC ARTHROCENTESIS ASPIR&/INJ MAJOR JT/BURSA W/O US (01/18/2025 10:45 AM EDT) Narrative Manuel Mesa MD - 01/18/2025 10:45 AM EDT Manuel Mesa MD ? 01/18/2025 ??1:39 PM Lg Joint Arthro: R knee on 01/18/2025 10:45 AM Indications: pain Details: 22 G needle, anterolateral approach Medications: 12 mg betamethasone acetate-betamethasone sodium phosphate 6 (3-3) MG/ML Outcome: tolerated well, no immediate complications The steroid was given with 4 mL of 1% lidocaine. ??We discussed that diabetic patients may experience elevation in blood sugars with steroid injection and that the patient should monitor their blood sugars accordingly. Risks of infection, bleeding, injury, failure of the injection to work were reviewed and understood. They understand the injection may take a few days to work and will last for a variable amount of time, typically between 3-6 months for most patients. It will not relieve all pain but can improve symptoms. Procedure, treatment alternatives, risks and benefits explained, specific risks discussed. Consent was given by the patient. Patient was prepped and draped in the usual sterile fashion. Manuel Mesa MD PROCEDURE/MINOR SURGICAL ORDERABLES Final Result * LAB RESULT (12/24/2024 12:38 PM EDT) Only the most recent of5 resultswithin the time period is included. Ena Mtz MD HX AMB PROCEDURES Final Result * ECHOCARDIOGRAM TRANSESOPHAGEAL (12/22/2024 10:47 AM EDT) Heart Rate 60 bpm BP Systolic 124 mmHg BP Diastolic 58 mmHg Height 75.00 inches Weight 216.00 lbs BSA 2.27 m2 TR Peak [place] 2.3 m/s Sinuses of Valsalva 4.3 cm Sinuses of Valsalva Index 1.9 cm/m2 TR Peak Gradient 21 mmHg Anatomical Region Laterality Modality Ultrasound Narrative 12/22/2024 5:13 PM EDT ?There is a small, mobile echodensity posterior to the mitral valve annulus and adjacent to the watchman device. This is likely a benign fibrinous strand possibly denuded atrial tissue related to device placement, however, cannot exclude vegetation in the setting of recent bacteremia. ??When compared to previous transesophageal echocardiogram on 11/11/2024 there was no significant change in size. ?Left ventricular systolic function is low normal with an estimated ejection fraction of 50-54%. ?Right ventricular systolic function is normal. ?There is a patent foramen ovale with predominant left to right shunting indicated by color doppler. ?There is a watchman closure device which completely occludes the left atrial appendage. There is no evidence of ariana-device leak in limited views. ?There is moderate mitral regurgitation. ?There is moderate to severe tricuspid regurgitation. Technical Details Doppler color flow mapping and pulsed wave and/or continuous wave with spectral doppler interrogation, complete, were performed during the study. Overall the study quality was adequate. Sedation was performed by anesthesiology. 3D echocardiographic imaging of left ventricle structure and function was performed demonstrating the following study findings.3D echocardiographic imaging of tricuspid valvular structure and function was performed demonstrating the following study findings. Left Ventricle Left ventricular systolic function is low normal with an estimated ejection fraction of 50-54%. Right Ventricle Right ventricular systolic function is normal. Left Atrium There is a watchman closure device which completely occludes the left atrial appendage. There is no evidence of ariana-device leak in limited views. There is a small, mobile echodensity posterior to the mitral valve annulus and adjacent to the watchman device. This is likely a benign fibrinous strand possibly denuded atrial tissue related to device placement, however, cannot exclude vegetation in the setting of recent bacteremia. Right Atrium There is a patent foramen ovale with predominant left to right shunting indicated by color doppler. A prominent Eustachian valve is present. Mitral Valve The mitral leaflets are mildly thickened. There is mild to moderate functional mitral regurgitation with a centrally directed jet.There is no evidence of vegetation on the mitral valve. Tricuspid Valve The tricuspid valve leaflets exhibit normal excursion. There is poor coaptation between the anterior and septal leaflets. The tricuspid valve annulus is dilated. There is severe tricuspid regurgitation. There is no evidence of vegetation on the tricuspid valve. Aortic Valve The aortic valve is tricuspid. There is no aortic regurgitation or stenosis. There is no evidence of vegetation on the aortic valve. Pulmonic Valve The pulmonic valve is structurally normal. There is trace pulmonic regurgitation. There is no evidence of vegetation on the pulmonic valve. Ascending Aorta There is an atheroma with minimal or no intimal thickening (Grade 1) in the descending aorta. Pericardium There is no pericardial effusion. Study Details Consent was obtained for transesophageal echocardiography. Sedation was provided by anesthesia (see their flowsheet for details). The transesophageal probe was inserted atraumatically into the esophagus by the bookkeeping clerk. With the patient in a supine position the probe was advanced to approximately 40 cm and the echocardiographic examination was completed. At the end of the examination the TATIANNA probe was removed and the patient was then monitored by anesthesia. No apparent complications were noted from the procedure. Prior Study Compared to previous study on 11/11/2024, there is no significant change. The bi-ventricular function is slightly improved. us Ena Mtz MD CV ECHO ORDERABLES Final Result * PM SINGLE LEAD EVAL WITH PROGRAM,[id number] (12/07/2024 2:14 PM EDT) Date Time Interrogation Session 20,250,311,13 4,009 PACEART Implantable Pulse Generator Correction Officer Reformatory Medtronic PACEART Implantable Pulse Generator Model [id number] Micra AV2 PACEART Implantable Pulse Generator Serial Number [id number] PACEART Implantable Pulse Generator Type Pacemaker PACEART [...] last reset 99.93 % PACEART Otf Statistic PROPOSAL MANAGER Percent 99.97 % PACEART Otf Statistic VS Percent 0.03 % PACEART Anatomical Region Laterality Modality Cardiac Device 12/07/2024 1:40 PM EDT Narrative 12/09/2024 11:59 AM EDT OBSERVATIONS: One month s/p Micra AV pacemaker evaluation performed. Patient feeling much better, asymptomatic. Battery longevity >10 years. AV synchrony 41.4%. PROPOSAL MANAGER only 58.5%. Normal pacemaker function. Discussed with Erin Reyna APRN, no changes made. Pacemaker extraction incision C/D/I. PRESENTING RHYTHM: AM-PROPOSAL MANAGER/PROPOSAL MANAGER @ 60 bpm INHIBITED RHYTHM: No ventricular response greater than 40 bpm PATIENT EDUCATION: Ongoing education for: device function, home monitor function, evaluation results. CHANGES MADE THIS SESSION: None RECOMMENDATIONS: Continue routine monitoring by [facility] - Dr. Fields. Sri Pena RN Gretel Hinds APRN CV CARDIAC SERVICES ORDER JOSE Final Result * (ABNORMAL) POCT Glucose, Fingerstick (11/25/2024 12:13 PM EST) Only the most recent of68 resultswithin the time period is included. POC Glucose 120(H) 65 - 99 mg/dL 11/25/2024 12:14 PM EST Blood specimen / Unknown 11/25/2024 12:13 PM EST 11/25/2024 12:14 PM EST Dallas Camejo MD POINT OF CARE TEST ORDERABLES Final Result HOSPITAL LAB See Below * Glucose, Fingerstick (POCT) (TID AC) (11/24/2024 12:01 PM EST) 11/24/2024 12:0 1 PM EST Corbin Lamb APRN POCT ORDERABLES - DEVICE F inal Result * (ABNORMAL) Complete Blood Count WITHOUT Differential - in AM (11/24/2024 6:56 AM EST) Only the most recent of15 resultswithin the time period is included. White Blood Cell Count 10.0 4.0 - 11.0 Thou/uL 11/24/2024 9:12 AM EST [facility] Platelet Count [...] 6:56 AM EST 11/24/2024 8:52 AM EST us Gianluca Calles MD LAB BLOOD ORDERABLES [place] [address], [place] [address] * (ABNORMAL) Comprehensive Metabolic Panel (AM) (11/24/2024 6:56 AM EST) Only the most recent of2 resultswithin the time period is included. Glucose [...] 6:56 AM EST 11/24/2024 8:52 AM EST us Gianluca Calles MD LAB BLOOD ORDERABLES Final R esult Performing Organization Address City/[facility]/[place] [address], [place] [address] * Influenza A/B, RSV, SARS-CoV-2 BALJINDER Multiplex [...] other patient management decisions. 11/23/2024 12:00 PM [facility] Swab, Nasopharyngeal Nasopharyngeal swab / Unknown 11/23/2024 10:45 AM EST 11/23/2024 11:08 AM EST us Gianluca Calles MD MICROBIOLOGY - GENERAL ORDER JOSE Final Result Performing Organization Address [facility] [place] [address], [place] [address] * (ABNORMAL) Erythrocyte Sedimentation Rate (ESR) (11/23/2024 6:43 AM EST) Erythrocyte Sediment Rate (ESR) 62(H) <20 MM/HR 11/23/2024 12:07 PM [facility] Blood specimen / Unknown 11/23/2024 6:43 AM EST 11/23/2024 6:49 AM EST us Gianluca Calles MD LAB BLOOD ORDERABLES Final R esult Performing Organization Address City/[facility]/[place] [address], [address] [address] * (ABNORMAL) C-REACTIVE PROTEIN (11/23/2024 6:43 AM EST) C-Reactive Protein 4.88(H) 0 - 0.49 mg/dL 11/23/2024 11:53 AM EST [facility] 11/23/2024 6:43 AM EST 11/23/2024 6:49 AM EST us Gianluca Calles MD LAB BLOOD ORDERABLES Final R esult Performing Organization Address [facility]/[place] [address], [address] [address] * Magnesium (AM) (11/23/2024 6:43 AM EST) Only the most recent of16 resultswithin the time period is included. Pathologist [facility] Magnesium 2.2 1.6 - 2.7 mg/dL 11/23/2024 7:22 AM [facility] Blood Blood specimen / Unknown 11/23/2024 6:43 AM EST 11/23/2024 6:49 AM EST us Gianluca Calles MD LAB BLOOD ORDERABLES Final R esult Performing Organization Address City/[facility]/[place] [address], [address] [address] * CREATINE KINASE (CK) (11/23/2024 6:43 AM EST) Only the most recent of3 resultswithin the time period is included. Creatine Kinase (CK) 36 24 - 204 U/L 11/23/2024 11:53 AM EST [facility] 11/23/2024 6:43 AM EST 11/23/2024 6:49 AM EST us Gianluca Calles MD LAB BLOOD ORDERABLES Final R esult [address] [address], [address] [address] * (ABNORMAL) HEPATIC FUNCTION PANEL (11/23/2024 6:43 AM EST) Only the most recent of2 resultswithin the time period is included. Alkaline [...] 6:43 AM EST 11/23/2024 6:49 AM EST us Gianluca Calles MD LAB BLOOD ORDERABLES Final R esult [address] [address], [address] [address] * (ABNORMAL) Basic Metabolic Panel (AM) (11/23/2024 6:43 AM EST) Only the most recent of15 resultswithin the time period is included. Pathologist [facility] Glucose 114(H) 65 - 99 mg/dL 11/23/2024 [...] 10.0 - 25.0 Ratio 11/23/2024 7:22 AM [facility] Blood Blood specimen / Unknown 11/23/2024 6:43 AM EST 11/23/2024 6:49 AM EST us Gianluca Calles MD LAB BLOOD ORDERABLES Final R esult [address] [address], [address] [address] * PM LEADLESS SINGLE-CARDIAC CHAMBER EVAL W/PROGRAM (IN PERSON), [id number] (11/22/2024 2:20 PM EST) Date Time Interrogation Session 20,250,224,13 5,809 PACEART Implantable Pulse Generator Correction Officer Reformatory Medtronic PACEART Implantable Pulse Generator Model [id number] Micra AV2 PACEART Implantable Pulse Generator Serial Number [id number] PACEART Implantable Pulse Generator Type Pacemaker PACEART Implantable Pulse Generator Implant Date ,,19 0,000 PACEART Otf Setting Mode (NBG Code) VDD PACEART Otf Setting Lower Rate Limit 60 {beats}/m in PACEART Otf Setting Maximum Tracking Rate 120 {beats}/m in PACEART Oft Setting Maximum Sensor Rate 120 {beats}/m in [...] last reset 99.86 % PACEART Otf Statistic PROPOSAL MANAGER Percent 100.00 % PACEART Otf Statistic VS Percent 0 % PACEART Anatomical Region Laterality Modality Other 11/22/2024 1:58 PM EST Narrative 11/28/2024 10:40 AM EST Micra AV leadless Pacemaker evaluation completed on B10E. Per patient request and verbal order from SHUBHAM Pitts: LRL increased from 50 bpm to 60 bpm. Presenting rhythm: AM/PROPOSAL MANAGER @ 62 bpm. Underlying rhythm: CHB. AM/PROPOSAL MANAGER pacing 81%, with total V-pacing 100%. Battery and testing results evaluated and within normal limits. Normal leadless pacemaker function. JOSUE Alvarenga us Gianluca Calles MD CV CARDIAC SERVICES ORDERABL ES Final Result * (ABNORMAL) Urinalysis with Reflex to Microscopic (11/19/2024 4:00 PM EST) Color Yellow 11/19/2024 4:30 PM [facility] Clarity Clear 11/19/2024 4:30 PM EST [facility] Specific Egan 1.008 1.003 - 1.030 11/19/2024 4:30 PM [...] 4:00 PM EST 11/19/2024 4:18 PM EST us Anmol Reynoso MD URINE ORDERABLES [place] [address], [address] [address] * Urea Nitrogen, Urine, Random (11/19/2024 4:00 PM EST) Urea Nitrogen, Random Urine 273 mg/dL 11/19/2024 5:43 PM [facility] Comment:Reference range not established for random specimen. Urine Urine specimen / Unknown 11/19/2024 4:00 PM EST 11/19/2024 4:19 PM EST us Anmol Reynoso MD URINE ORDERABLES [place] [address], [address] [address] * SODIUM, URINE, RANDOM (11/19/2024 4:00 PM EST) Sodium, Urine Random 21 mmol/L 11/19/2024 5:43 PM [facility] Comment:Reference range not established for random specimen. Urine Urine specimen / Unknown 11/19/2024 4:00 PM EST 11/19/2024 4:19 PM EST us Anmol Reynoso MD URINE ORDERABLES Final Re sult Performing Organization Address City/[facility]/ZIP Co de Phone Number [address] [address], [address] [address] * OSMOLALITY, URINE (11/19/2024 4:00 PM EST) Osmolality, Urine 201 50 - 1,200 mOsm/Kg 11/19/2024 6:20 PM [facility] Urine Urine specimen / Unknown 11/19/2024 4:00 PM EST 11/19/2024 4:19 PM EST us Anmol Reynoso MD URINE ORDERABLES Final Re sult Performing Organization Address [facility] Co de Phone Number [address] [address], [address] [address] * CREATININE, URINE, RANDOM (11/19/2024 4:00 PM EST) Creatinine, Urine, Random 31 mg/dL 11/19/2024 5:43 PM [facility] Comment:Reference range not established for random specimen. Urine Urine specimen / Unknown 11/19/2024 4:00 PM EST 11/19/2024 4:19 PM EST us Anmol Reynoso MD URINE ORDERABLES Final Re sult Performing Organization Address [facility] Co de Phone Number [address] [address], [address] [address] * Chloride, Urine, Random (11/19/2024 4:00 PM EST) Chloride, Urine, Random 23 mmol/L 11/19/2024 5:43 PM EST [facility] Comment:Reference range not established for random specimen. Urine Urine specimen / Unknown 11/19/2024 4:00 PM EST 11/19/2024 4:19 PM EST Anmol Reynoso MD URINE ORDERABLES Final Re sult [address] [address], [address] [address] * CVC INSERT (TUNNEL) W/O PORT GREATER [...] table. A preprocedure time-out was performed per [facility] protocol. The right neck and chest was [...] access, a 26 cm long dual lumen 5-[place] Islander cuffed tunneled catheter was placed under fluoroscopic [...] table. A preprocedure time-out was performed per [facility] protocol. The right neck and chest was [...] access, a 26 cm long dual lumen 5-[place] Islander cuffed tunneled catheter was placed under fluoroscopic [...] above. PLAN: Catheter ready for use immediately. us Alyssia PATTON CV ENDOVASCULAR ORDERABLES F inal Result * PM SINGLE LEAD EVAL WITH PROGRAM,[id number] (11/18/2024 7:45 AM EST) Date Time Interrogation Session ,,07 3,509 PACEART Implantable Pulse Generator Correction Officer Reformatory Medtronic PACEART Implantable Pulse Generator Model [id number] Micra AV2 PACEART Implantable Pulse Generator Serial Number [id number] PACEART Implantable Pulse Generator Type Pacemaker PACEART [...] last reset 92.76 % PACEART Otf Statistic PROPOSAL MANAGER Percent 99.88 % PACEART Otf Statistic VS Percent 0.12 % PACEART Anatomical Region Laterality Modality Other 11/18/2024 7:35 AM EST Narrative 11/19/2024 12:19 PM EST Pacemaker evaluation completed on B10E, device interrogation ordered for post-OP. Presenting rhythm: AM-PROPOSAL MANAGER @ 69 bpm. Underlying rhythm: No ventricular response greater than 40 bpm. AM-PROPOSAL MANAGER @ 84.8%. Battery and device parameters evaluated and within normal limits. Normal pacemaker function. Micra pacemakers do not record events. Sri Pena RN Corbin Lamb APRN CV CARDIAC SERVICES ORDERA BLES Final Result * XR Chest 1 view (11/17/2024 5:48 [...] airspace disease Corbin Lamb APRN IMG DIAGNOSTIC IMAGING ORD ERABLES Final Result * EXTRACTION LEAD(S) LASER FROM DUAL PM [...] femoral venous access was obtained. ??A 12 [place] Islander sheath was placed in the right femoral vein. ?? Through this an Amplatz stiff wire was advanced under fluoroscopic visualization to the right IJ. ??Using ultrasound-guided Seldinger technique left femoral venous access was obtained. ??8 [place] Islander sheath was placed in left femoral vein. [...] support. ??We then began with a 14 [place] Islander laser sheath. ??Under fluoroscopic visualization we started with the right ventricular lead. ?? 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 ??We were able to progress to the innominate area. ??Here we reached the innominate region and had significant fibrosis. ??We then remove the 14 [place] Islander laser sheath and moved to the right [...] then used the right femoral venous 12 [place] Islander sheath and Amplatz wire which was in [...] ventricle positioning on the septum. ??ADAME and GREEK position confirmed our placement.We did an initial deployment here. ??Sensing of paced R wave was 12 mV. ??Device impedance was 520 ohms. ??Threshold was initially 1.5 V that decreased to 1.2 V. ??However remained at 1.2 V at 0.24 ms. ??We therefore retrieved the device back into the deploying sheath. ??We then moved the device slightly superior. ??ADAME and GREEK position to confirm septal position. ??Initial testing [...] ??Z stitch was placed around the 8 [place] Islander sheath as well and the sheath was removed. ??Manual pressure was also used to achieve hemostasis. ??Intraoperative TATIANNA revealed no pericardial effusion. ??No significant tricuspid regurgitation was noted. ??The new AV Micra was tracking his atrium nicely. ??He was then extubated and transferred to recovery in good condition. Corbin Lamb APRN CV ELECTROPHYSIOLOGY ORDER JOSE Final Result * ANES LINE - ARTERIAL (11/17/2024 2:01 PM EST) Marlin Edgar PA-C - 11/17/2024 2:01 PM EST Marlin [...] Post-procedure: stablization device applied Marlin Miner PA-C SC ANESTHESIA Final Res ult * Phosphorus (AM) (11/17/2024 8:16 AM EST) Only the most recent of10 resultswithin the time period is included. Phosphorus 3.5 2.7 - 4.5 mg/dL 11/17/2024 9:01 AM [facility] Blood (Plasma/Serum) 11/17/2024 8:16 AM EST 11/17/2024 8:30 AM EST us Maddison Villalpando MD LAB BLOOD ORDERABLES Final Resu lt [address] [address], [address] [address] * Type and Screen (11/16/2024 7:23 AM EST) ABO/Rh A POSITIVE 11/16/2024 8:39 AM [facility] Antibody Screen NEGATIVE 11/16/2024 8:53 AM [facility] Specimen Expiration 11/19/2024 11/16/2024 8:39 AM [facility] Unit Number [id number] 11/16/2024 9:12 AM [facility] Unit Number [id number] 11/16/2024 9:12 AM [facility] Unit Number [id number] 11/16/2024 9:12 AM [facility] Unit Number [id number] 11/16/2024 9:12 AM [facility] Comment:Blood Cristina Rodriguez APRN BLOOD BANK TEST ORDERABLES Final Result HOSPITAL LAB See Below [address] [address] * Prepare RBC's:Prepare in: Units; Number of Units: 4; Transfusion Indications: Hemoglobin less than 7 gm/dl or HCT less than 21% (11/15/2024 10:54 AM EST) Units Ordered 4 11/15/2024 11:04 AM EST Serum specimen / Unknown 11/15/2024 10:54 AM EST 11/16/2024 9:11 AM EST Cristina Rodriguez APRN BLOOD BANK PRODUCT ORDERAB LES Final Result [facility]PITAL LAB See Below * (ABNORMAL) proBNP, N-terminal (11/15/2024 8:08 AM EST) Only the most recent of3 resultswithin the time period is included. proBNP, N-terminal 429(H) <125 pg/mL 11/15/2024 9:21 AM EST [facility] Blood Plasma specimen / Unknown 11/15/2024 8:08 AM EST 11/15/2024 8:57 AM EST Valencia Lau DINING CAR WAITER/WAITRESS LAB BLOOD ORDERABLES Dalila woodall Result Performing Organization Address City/State/[facility] Co de Phone Number [facility] [address] [place] [address], [facility] [address] [place] [address] * MRI Brain w/o contrast (11/12/2024 1:43 [...] or suspicious intracranial lesions. No septic emboli. us Luis Degroot MD IMG MRI ORDERABLES Final Result * PM DUAL LEAD EVAL WITH PROGRAMMING, [id number] (11/12/2024 1:15 PM EST) Date Time Interrogation Session 20,250,214,13 4,157 PACEART Implantable Pulse Generator Correction Officer Reformatory Medtronic PACEART Implantable Pulse Generator Model [id number] Jaime LEWIS PACEART Implantable Pulse Generator Serial Number [id number] PACEART Implantable Pulse Generator Type Pacemaker PACEART Implantable Pulse Generator Implant Date 20,160,125,19 0,000 PACEART Otf Setting Mode (NBG Code) AAIR<==>DDDR PACEART Otf Setting Lower Rate Limit 60 {beats}/m in PACEART Tof Setting Maximum Tracking Rate 130 {beats}/m in [...] reset 99.97 % PACEART Otf Statistic AP PROPOSAL MANAGER Percent 76.74 % PACEART Otf Statistic PROPOSAL MANAGER Percent 23.23 % PACEART Otf Statistic AP VS Percent 0.01 % PACEART Otf Statistic VS Percent 0.01 % PACEART AT/AF Dickinson Percent 0 % PACEART Episode Statistic Recent [...] All original programming restored. Farhana Sanon, RN us Maddison Villalpando MD CV CARDIAC SERVICES ORDERABLES Final Result * PM DUAL LEAD EVAL WITH PROGRAMMING, [id number] (11/11/2024 4:33 PM EST) Date Time Interrogation Session 20,250,213,17 1,358 PACEART Implantable Pulse Generator Correction Officer Reformatory Medtronic PACEART Implantable Pulse Generator Model [id number] Jaime LEWIS PACEART Implantable Pulse Generator Serial Number [id number] PACEART Implantable Pulse Generator Type Pacemaker PACEART [...] reset 89.06 % PACEART Otf Statistic AP PROPOSAL MANAGER Percent 62.37 % PACEART Otf Statistic PROPOSAL MANAGER Percent 26.83 % PACEART Otf Statistic AP VS Percent 8.97 % PACEART Otf Statistic VS Percent 1.83 % PACEART AT/AF Dickinson Percent 0 % PACEART Episode Statistic Recent [...] ordered for function. Presenting rhythm: AP / PROPOSAL MANAGER @ 60 bpm. Underlying rhythm: SB @ 58. Atrial pacing 71.2%, ventricular pacing 89%. Battery and lead parameters evaluated and within normal limits. Normal pacemaker function. Sam Mcgowan RN Nani Hollis PA-C CV CARDIAC SERVICES ORDERABLES Final Result * ECHOCARDIOGRAM TRANSESOPHAGEAL (11/11/2024 3:34 PM EST) [...] inserted atraumatically into the esophagus by the psychologist clinical. With the patient in a supine position [...] mitral valve annulus andadjacent to watchman device.. us Dallas Camejo MD CV ECHO ORDERABLES Final Resu lt * XR Chest 1 view-Portable (11/10/2024 6:13 [...] IMPRESSION: No significant change from prior study us Nani Hollis PA-C IMG DIAGNOSTIC IMAGING ORDERAB LES Final Result * (ABNORMAL) Hemoglobin A1c with Estimated Average Glucose (09/03/2024 2:40 PM EST) Hemoglobin A1C 8.7(H) <5.7 % 09/03/2024 7:00 PM EST [facility] Comment: A1c% ? Interpretation 5.7 - 6.0 ?Increase risk of diabetes 6.1 - 6.4 ?Higher risk of diabetes > or = 6.5 ?? Consistent with diabetes Diabetes Care, 33(Supp 1):S1-S61, 2010 Estimated Average Glucose 203 mg/dL 09/03/2024 7:00 PM EST [facility] Blood Blood specimen / Unknown 09/03/2024 2:40 PM EST 09/03/2024 5:55 PM EST us Gilda Collier DINING CAR WAITER/WAITRESS LAB BLOOD ORDERABLES Final R esult HOSPITAL LAB See Below [facility] [address] [place], [place] from Last 3 Months or Most Recently Relevant to Health Maintenance Insurance [facility] MEDICARE AETNA MGD MEDICARE AETNA MGD MEDICARE Advance Directives Documents on File Type Date Recorded Patient Computer Game Tester Expl anation Advance Directive-Scan 11/10/2024 Revoc ation of Health Care Proxy HH 11/10/24 Advance Directive-Scan 11/10/2024 Healt h Care Proxy [facility] 11/10/24 * Full Code (Latest Code Status [...] File Name Relationship Healthcare Agent Relationship Communication Luca(SON) Sebastien Healthcare technology sales representative 1. Health Care Computer Game Tester Jessica Mello Healthcare technology sales representative 1. Health Care Computer Game Tester Care Teams Templer Head Relationship Specialty Start Date End Date Monty Matthews MD PCP - General Internal Medicine 09/02/24 Vitaliy Fields MD [address] [place] [id number] Cardiovascular Disease 09/02/24 Dallas Camejo MD [address] [place] [id number] Surgery, Orthopedic 09/02/24 Rolando Lopez MD [address] [place] [address] Transplant - Ph [address] [place] [address] Physician Nephrology 09/02/24 Cesar Fair MD [address] [place] [phone] Surgery, Cardiac 11/08/24 Daisy Her, PT [address] [facility] [address] [place] [id number] Still RunnerKnotting Machine Operator Medicine and Rehabilitation 11/18/24
== END 2025-02-07 13:14 | disposition home or self-care (01) ==
LOC: HO.HCS 12:23
PROVIDERS: PCP Internal Medicine; Visit Provider Internal Medicine
DX: I48.0 Paroxysmal atrial fibrillation (principal); I50.30 Unspecified diastolic (congestive) heart failure; Z95.818 Presence of other cardiac implants and grafts; G47.33 Obstructive sleep apnea (adult) (pediatric); Z01.810 Encounter for preprocedural cardiovascular examination
CPT/HCPCS: 93010; 93279; 99214; G2211

== ENCOUNTER → 2025-02-07 12:23 | Outpatient (BNVA) | payer MEDICARE, SELFPAY | PROVIDERS: PCP Internal Medicine; Visit Provider Internal Medicine | DX: Z45.018 Encounter for adjustment and management of other part of cardiac pacemaker (principal); Z01.810 Encounter for preprocedural cardiovascular examination; G47.33 Obstructive sleep apnea (adult) (pediatric); I48.0 Paroxysmal atrial fibrillation; I50.30 Unspecified diastolic (congestive) heart failure; Z95.818 Presence of other cardiac implants and grafts | CPT/HCPCS: 93005; 99212 ==

== ENCOUNTER 2025-04-27 13:56 | Outpatient (AMB) | payer MEDICARE, SELFPAY ==
[2025-04-27 14:02] VITALS: BP 118/66; PULSE 60; BMI 49.6
--- NOTE | 2025-04-27 14:02 | A.OFFVIS_ITS ---
Vital Signs 04/27/25 14:02 Height 5 ft 3 in Weight 279 lb 15.793 oz BMI 49.6 BP 118/66 Blood Pressure Location Lt brachial Position Sitting Pulse 60 Pulse Source Monitor Intake Visit Reasons: pre op knee surg gibson [phone] Allergies lisinopril Allergy (Mild, Verified 08/12/24 14:05) kidney trouble Medication List - Last Reconciled 04/27/25 by Vitaliy Fields MD amlodipine 10 mg PO DAILY aspirin (Adult Aspirin Regimen) 81 mg PO DAILY bumetanide 2 mg PO DAILY 90 days cholecalciferol (vitamin D3) 25 mcg PO DAILY donepezil 10 mg PO DAILY empagliflozin (Jardiance) 25 mg PO DAILY glipizide ER 2.5 mg PO BID metformin 500 mg PO ONCE metoprolol tartrate 50 mg PO BID omega 7-vbu-mhm-fish oil 1,000 (120-180) mg (Fish Oil) 1 cap PO DAILY pantoprazole 40 mg PO DAILY pravastatin 20 mg PO DAILY pregabalin (Lyrica) 150 mg PO BID zinc gluconate 10 mg PO DAILY HPI Comments Details: Luca returns for follow-up. Long and complicated history. History of atrial fibrillation and he has had prior cardioversions and ablations numerous times. History of gastrointestinal bleeding and underwent Watchman device. History of bariatric surgery and weight loss. Chronic heart failure on diuretics. In the clinic visit from 2023, he was in atrial flutter with rapid rate. Then had therapeutic anticoagulation followed by cardioversion. He was supposed to get another ablation at [facility] but in the interim, he had developed left foot osteomyelitis. After that, he underwent left below-knee amputation. In this context, had bacteremia with MRSA/VRE. There was question of mitral va lve/pacemaker lead endocarditis. Put on antibiotics. Then had heart failure exacerbation. Then was put on Bumex drip. TATIANNA had shown concern for mobile echodensity in the mitral valve annulus and adjacent to Watchman device. Following this, dual-chamber pacemaker extracted and he had micra implanted. Eventually, discharged home. It seems he briefly saw [facility] as well. He is supposed to be getting the scheduled atrial flutter ablation at [facility] but he has postponed that for a few more months stating that he is in lot of knee pain and absolutely needs the knee surgery done. Hence it seems he is going for that procedure rather. With regard to the flutter itself, we had put him on Amiodarone for maintaining rhythm but then he developed hypothyroidism and it was stopped. In spite of the above, he has got absolutely no cardiac symptoms whatsoever. He states he actually feels great in spite of all the above issues. He is really looking forward to get this knee surgery done. Additionally, because his care is scattered in different health systems, it is difficult to put all this together. In fact quite confusing. [facility] Medical History (Updated 02/07/25 @ 12:55 by Vitaliy Fields MD) Diabetes Obstructive sleep apnea Paroxysmal atrial fibrillation (HFpEF) heart failure with preserved ejection fraction Presence of Watchman left atrial appendage closure device Pacemaker Hx of cardiac pacemaker Surgical History (Reviewed 12/02/24 @ 09:37 by Georgie Dugan [facility]) History of amputation of toe Hx of hand surgery Hx of colonoscopy Hx of total knee replacement Hx of gastric bypass History of amputation of lesser toe Hx of colonoscopy Hx of prior ablation treatment Hx of foot surgery Family History Father Emphysema lung Mother Heart failure Son Ulcerative colitis Brother No problems noted. Sister No problems noted. Sister No problems noted. Social History Are you a primary patient care nursing assistant to a significant other at home: No Do you presently have visiting nurse or other home services: No Alcohol intake: current Alcohol intake frequency: a few times a week Patient Tobacco Use Status: Former Tobacco user Tobacco use type: Cigarette Review of Systems Const Denies weakness ENT Denies dizziness Card Denies chest pain, Denies chest pain with activity, Denies syncope, Denies rapid heart rate, Denies pedal edema, Denies edema, Denies leg edema, Denies lightheadedness, Denies palpitations, Denies dyspnea, Denies dyspnea on exertion and Denies orthopnea Resp Denies cough, Denies dyspnea and Denies dyspnea on exertion GI Denies hematochezia and Denies change in stool character Musc Denies abnormal gait, Denies muscle cramps, Denies muscle weakness, Denies numbness, Denies radiating pain into limb and Denies tingling Neuro Denies abnormal gait, Denies dizziness, Denies syncope, Denies numbness, Denies tingling and Denies weakness Endo Denies palpitations Physical Exam Vital Signs: Last Vital Signs Pulse 60 04/27/25 14:02 BP 118/66 04/27/25 14:02 BMI result Body Mass Index 49.6 Const General: comfortable and no acute distress Orientation/consciousness: patient oriented x3 HEENT Other: Unremarkable Head: Yes normal to inspection Neck Neck: Yes normal visual inspection Chest Chest palpation & inspection: normal inspection of the chest Resp Auscultation: clear to auscultation bilaterally Cardio Palpation: normal PMI Heart sounds: S1 normal heart sound present, S2 normal heart sound present, no gallops, no murmurs and no rubs GI Palpation (GI): Soft to palpation Back/Spine/Pelvis Other: unremarkable Skin General skin exam: no rashes or lesions noted Neuro General: patient oriented x3 Extrem General: Yes normal to inspection Psych Mental Status: mental status grossly normal Office Procedures EKG Details: EKG with ventricular paced rhythm at 60/Min; atrial rhythm probably sinus. [id number], Complete Assessment & Plan Assessment & Plan (1) Paroxysmal atrial fibrillation: Code(s): I48.0 - Paroxysmal atrial fibrillation Category: Medical Plan: History of prior cardioversions and ablations. Last cardioversion was in July 2024 for atrial flutter with rapid rate. Was maintained on amiodarone but now stopped because of abnormal thyroid function. Already planned to have repeat ablation by EP but has been postponed many times because of other medical issues/hospitalizations. Strongly advised him to follow up with EP regarding this - he states he has rescheduled the ablation for August. There is certainly risk of recurring atrial flutter/ fibrillation in the interim. He is well aware of that. (2) (HFpEF) heart failure with preserved ejection fraction: Code(s): I50.30 - Unspecified diastolic (congestive) heart failure Category: Medical Plan: He is on Bumex. Remains stable. No symptoms or signs of congestive heart failure. (3) Presence of Watchman left atrial appendage closure device: Code(s): Z95.818 - Presence of other cardiac implants and grafts Category: Medical Plan: Remains on aspirin. (4) Obstructive sleep apnea: Code(s): G47.33 - Obstructive sleep apnea (adult) (pediatric) Category: Medical Plan: On BiPAP. (5) Preoperative cardiovascular examination: Code(s): Z01.810 - Encounter for preprocedural cardiovascular examination Category: Medical Plan: Plan for knee surgery noted. Intermediate cardiac risk. (6) Pacemaker: Code(s): Z95.0 - Presence of cardiac pacemaker Category: Medical Plan: Have requested several times in the past to maintain remote monitoring, including today. Coding Level of Care Code Est Pt Level 4 (36325) Complex EM visit Add On G2211 Diagnoses Paroxysmal atrial fibrillation I48.0 (HFpEF) heart failure with preserved ejection fraction I50.30 Presence of Watchman left atrial appendage closure device Z95.818 Obstructive sleep apnea G47.33 Preoperative cardiovascular examination Z01.810 Pacemaker Z95.0 CPT Codes EKG - CPT: 17149-[id number], Complete ([id number])
--- OUTSIDE RECORDS SUMMARY | 2025-04-27 14:37 | XMS_ITS ---
Author Name [facility] Organization Unknown Results Test Name/Text Value Interpretation Date Range Source Result Not Detected 04/23/2025 - HHCCT Transferrin SerPl-mCnc 261.0 mg/dL 04/23/2025 200 - 360 HHCCT Prealb SerPl-mCnc 31.0 mg/dL 04/23/2025 20 - 40 HHCCT Sodium SerPl-sCnc 138.0 mmol/L 04/23/2025 136 - 14 5 HHCCT BUN SerPl-mCnc 44.0 mg/dL Above high normal 04/23/2025 8 - 2 1 HHCCT Anion Gap Bld-sCnc 15.0 04/23/2025 7 - 17 HHCCT Calcium SerPl-mCnc 8.7 mg/dL 04/23/2025 8.7 - 10.5 HHCCT GFR/BSA.pred SerPlBld [id number] 42.0 Below low normal 04/23/2025 59 - HHCCT Chloride SerPl-sCnc 98.0 mmol/L 04/23/2025 98 - 10 7 HHCCT Glucose SerPl-mCnc 211.0 mg/dL Above high normal 04/23/2025 65 - 99 HHCCT BUN/Creat SerPl 24.0 Ratio 04/23/2025 10 - 25 HH CCT Potassium SerPl-sCnc 5.0 mmol/L 04/23/2025 3.4 - 5.3 HHCCT CO2 SerPl-sCnc 25.0 mmol/L 04/23/2025 22 - 33 HH CCT Creat SerPl-mCnc 1.8 mg/dL Above high normal 04/23/2025 0.5 - 1.3 HHCCT Hgb A1c MFr Bld 7.4 % Above high normal 04/23/2025 - 5.7 HHCCT Est. average glucose Bld gHb Est-mCnc 166.0 mg/dL 04/23/2025 HHCCT WBC num Bld Auto 7.0 Thou/uL 04/23/2025 4 - 11 HHCCT Neutrophils/leuk NFr Bld Auto 71.4 % 04/23/2025 HHCCT Lymphocytes num Bld Auto 1.11 Thou/uL Below low normal 04/23/2025 1.5 - 4.5 HHCCT RBC num Bld Auto 4.14 Mil/uL Below low normal 04/23/2025 4.5 - 6.2 HHCCT Basophils/leuk NFr Bld Auto 0.6 % 04/23/2025 HHCCT Hct VFr Bld Auto 38.8 % Below low normal 04/23/2025 39 - 54 HHCCT Platelet num Bld Auto 286.0 Thou/uL 04/23/2025 150 - 450 HHCCT Hgb Bld-mCnc 13.3 g/dL 04/23/2025 13 - 17.7 HHCCT MCH RBC Qn Auto 32.1 pg Above high normal 04/23/2025 27 - 31 HHCCT Lymphocytes/leuk NFr Bld Auto 15.8 % 04/23/2025 HHCCT Imm Granulocytes num Bld Auto 0.06 Thou/uL 04/23/2025 0 - 0.1 HHCCT MCV RBC Auto 94.0 fL 04/23/2025 80 - 100 HHCCT Eosinophil num Bld Auto 0.07 Thou/uL 04/23/2025 0 - 0.7 HHCCT Monocytes/leuk NFr Bld Auto 10.3 % 04/23/2025 HHCCT Eosinophil/leuk NFr Bld Auto 1.0 % 04/23/2025 HHCCT Basophils num Bld Auto 0.04 Thou/uL 04/23/2025 0 - 0.2 HHCCT Neutrophils num Bld Auto 5.01 Thou/uL 04/23/2025 2 - 7.5 HHCCT RDW RBC Auto-Rto 15.5 % Above high normal 04/23/2025 11.5 - 14.5 HHCCT MCHC RBC Auto-mCnc 34.3 g/dL 04/23/2025 30 - 36 HHCCT Imm Granulocytes/leuk NFr Bld Auto 0.9 % 04/23/2025 HHCCT PMV Bld Auto 11.4 fL 04/23/2025 7.5 - 12.5 HHCCT Monocytes num Bld Auto 0.72 Thou/uL 04/23/2025 0.2 - 1.5 HHCCT POC Glucose 120.0 mg/dL Above high normal 11/25/2024 65 - 99 HHCCT POC Glucose 150.0 mg/dL Above high normal 11/25/2024 65 - 99 HHCCT POC Glucose 105.0 mg/dL Above high normal 11/24/2024 65 - 99 HHCCT POC Glucose 104.0 mg/dL Above high normal 11/24/2024 65 - 99 HHCCT POC Glucose 103.0 mg/dL Above high normal 11/24/2024 65 - 99 HHCCT BUN SerPl-mCnc 35.0 mg/dL Above high normal 11/24/2024 8 - 2 1 HHCCT Potassium SerPl-sCnc 3.8 mmol/L Normal 11/24/2024 3.4 - 5.3 HHCCT Globulin Ser Calc-mCnc 3.6 g/dL Normal 11/24/2024 1.5 - 3.9 HHCCT ALP SerPl-cCnc 97.0 U/L Normal 11/24/2024 45 - 128 HHCC T Sodium SerPl-sCnc 139.0 mmol/L Normal 11/24/2024 136 - 14 5 HHCCT Prot SerPl-mCnc 6.7 g/dL Normal 11/24/2024 6.3 - 8.[address] GFR/BSA.pred SerPlBld [id number] 48.0 Below low normal 11/24/2024 59 - HHCCT Anion Gap Bld-sCnc 13.0 Normal 11/24/2024 7 - 17 HHCCT Bilirub SerPl-mCnc 0.2 mg/dL Normal 11/24/2024 0.2 - 1 HHCCT Glucose SerPl-mCnc 99.0 mg/dL Normal 11/24/2024 65 - 99 HHCCT CO2 SerPl-sCnc 24.0 mmol/L Normal 11/24/2024 22 - 33 HH CCT Albumin/Glob SerPl 0.9 Ratio Below low normal 11/24/2024 1 - 3 HHCCT ALT SerPl-cCnc 20.0 U/L Normal 11/24/2024 10 - 55 HHCC T Albumin SerPl-mCnc 3.1 g/dL Below low normal 11/24/2024 3.4 - 4.8 HHCCT BUN/Creat SerPl 22.0 Ratio Normal 11/24/2024 10 - 25 HH CCT AST SerPl-cCnc 14.0 U/L Normal 11/24/2024 10 - 55 HHCC T Chloride SerPl-sCnc 102.0 mmol/L Normal 11/24/2024 98 - 1 07 HHCCT Creat SerPl-mCnc 1.6 mg/dL Above high normal 11/24/2024 0.5 - 1.3 HHCCT Calcium SerPl-mCnc 8.9 mg/dL Normal 11/24/2024 8.7 - 10.5 HHCCT Platelet num Bld Auto 366.0 Thou/uL Normal 11/24/2024 150 - 450 HHCCT MCH RBC Qn Auto 27.7 pg Normal 11/24/2024 27 - [address] MCHC RBC Auto-mCnc 30.5 g/dL Normal 11/24/2024 30 - 36 HHCCT Hgb Bld-mCnc 9.0 g/dL Below low normal 11/24/2024 13 - 17.7 HHCCT MCV RBC Auto 91.0 fL Normal 11/24/2024 80 - 100 HHCCT WBC num Bld Auto 10.0 Thou/uL Normal 11/24/2024 4 - 11 HHCCT RBC num Bld Auto 3.25 Mil/uL Below low normal 11/24/2024 4.5 - 6.2 HHCCT PMV Bld Auto 10.8 fL Normal 11/24/2024 7.5 - 12.5 HHCCT RDW RBC Auto-Rto 18.0 % Above high normal 11/24/2024 11.5 - 14.5 HHCCT Hct VFr Bld Auto 29.5 % Below low normal 11/24/2024 39 - 54 HHCCT POC Glucose 116.0 mg/dL Above high normal 11/24/2024 65 - 99 HHCCT POC Glucose 84.0 mg/dL Normal 11/23/2024 65 - 99 HHCCT POC Glucose 151.0 mg/dL Above high normal 11/23/2024 65 - 99 HHCCT Respiratory syncytial virus RNA in upper resp spec by BALJINDER with probe detection Not Detected Normal 11/23/2024 HHCCT 2019-nCOV RNA Not Detected Normal 11/23/2024 HH CCT Comment Negative results do not preclude SARS-CoV-2, Influenza or RSV infection and should not be used as the sole basis for treatment or other patient management decisions. Normal 11/23/2024 HHCCT Influenza virus B in upper resp spec by BALJINDER with probe detection Not Detected Normal 11/23/2024 HHCCT Influenza virus A in upper resp spec by BALJINDER with probe detection Not Detected Normal 11/23/2024 HHCCT POC Glucose 126.0 mg/dL Above high normal 11/23/2024 65 - 99 HHCCT ESR Bld Qn 62.0 MM/HR Above high normal 11/23/2024 - 20 HHCCT CK SerPl-cCnc 36.0 U/L Normal 11/23/2024 24 - 204 HHCCT CRP SerPl-mCnc 4.88 mg/dL Above high normal 11/23/2024 0 - 0 .49 HHCCT Prot SerPl-mCnc 6.6 g/dL Normal 11/23/2024 6.3 - 8.[address] ALP SerPl-cCnc 103.0 U/L Normal 11/23/2024 45 - 128 HHCC T Albumin SerPl-mCnc 3.1 g/dL Below low normal 11/23/2024 3.4 - 4.8 HHCCT Globulin Ser Calc-mCnc 3.5 g/dL Normal 11/23/2024 1.5 - 3.9 HHCCT Albumin/Glob SerPl 0.9 Ratio Below low normal 11/23/2024 1 - 3 HHCCT Bilirub SerPl-mCnc 0.2 mg/dL Normal 11/23/2024 0.2 - 1 HHCCT AST SerPl-cCnc 22.0 U/L Normal 11/23/2024 10 - 55 HHCC T Bilirub Direct SerPl-mCnc 0.1 mg/dL Normal 11/23/2024 0 - 0.2 HHCCT ALT SerPl-cCnc 28.0 U/L Normal 11/23/2024 10 - 55 HHCC T Glucose SerPl-mCnc 114.0 mg/dL Above high normal 11/23/2024 65 - 99 HHCCT Calcium SerPl-mCnc 9.0 mg/dL Normal 11/23/2024 8.7 - 10.5 HHCCT Potassium SerPl-sCnc 4.0 mmol/L Normal 11/23/2024 3.4 - 5.3 HHCCT BUN/Creat SerPl 21.0 Ratio Normal 11/23/2024 10 - 25 HH CCT BUN SerPl-mCnc 31.0 mg/dL Above high normal 11/23/2024 8 - 2 1 HHCCT Creat SerPl-mCnc 1.5 mg/dL Above high normal 11/23/2024 0.5 - 1.3 HHCCT CO2 SerPl-sCnc 25.0 mmol/L Normal 11/23/2024 22 - 33 HH CCT GFR/BSA.pred SerPlBld [id number] 52.0 Below low normal 11/23/2024 59 - HHCCT Chloride SerPl-sCnc 104.0 mmol/L Normal 11/23/2024 98 - 1 07 HHCCT Anion Gap Bld-sCnc 11.0 Normal 11/23/2024 7 - 17 HHCCT Sodium SerPl-sCnc 140.0 mmol/L Normal 11/23/2024 136 - 14 5 HHCCT Magnesium SerPl-mCnc 2.2 mg/dL Normal 11/23/2024 1.6 - 2.7 HHCCT MCV RBC Auto 90.0 fL Normal 11/23/2024 80 - 100 HHCCT MCHC RBC Auto-mCnc 30.7 g/dL Normal 11/23/2024 30 - 36 HHCCT Platelet num Bld Auto 353.0 Thou/uL Normal 11/23/2024 150 - 450 HHCCT RBC num Bld Auto 3.14 Mil/uL Below low normal 11/23/2024 4.5 - 6.2 HHCCT PMV Bld Auto 10.4 fL Normal 11/23/2024 7.5 - 12.5 HHCCT MCH RBC Qn Auto 27.7 pg Normal 11/23/2024 27 - [address] Hgb Bld-mCnc 8.7 g/dL Below low normal 11/23/2024 13 - 17.7 HHCCT Hct VFr Bld Auto 28.3 % Below low normal 11/23/2024 39 - 54 HHCCT WBC num Bld Auto 10.8 Thou/uL Normal 11/23/2024 4 - 11 HHCCT RDW RBC Auto-Rto 18.0 % Above high normal 11/23/2024 11.5 - 14.5 HHCCT POC Glucose 138.0 mg/dL Above high normal 11/23/2024 65 - 99 HHCCT POC Glucose 128.0 mg/dL Above high normal 11/22/2024 65 - 99 HHCCT POC Glucose 174.0 mg/dL Above high normal 11/22/2024 65 - 99 HHCCT POC Glucose 194.0 mg/dL Above high normal 11/22/2024 65 - 99 HHCCT RDW RBC Auto-Rto 18.0 % Above high normal 11/22/2024 11.5 - 14.5 HHCCT MCH RBC Qn Auto 28.1 pg Normal 11/22/2024 27 - [address] Hct VFr Bld Auto 26.2 % Below low normal 11/22/2024 39 - 54 HHCCT WBC num Bld Auto 12.1 Thou/uL Above high normal 11/22/2024 4 - 11 HHCCT PMV Bld Auto 10.5 fL Normal 11/22/2024 7.5 - 12.5 HHCCT MCV RBC Auto 91.0 fL Normal 11/22/2024 80 - 100 HHCCT MCHC RBC Auto-mCnc 30.9 g/dL Normal 11/22/2024 30 - 36 HHCCT Platelet num Bld Auto 333.0 Thou/uL Normal 11/22/2024 150 - 450 HHCCT Hgb Bld-mCnc 8.1 g/dL Below low normal 11/22/2024 13 - 17.7 HHCCT RBC num Bld Auto 2.88 Mil/uL Below low normal 11/22/2024 4.5 - 6.2 HHCCT BUN/Creat SerPl 23.0 Ratio Normal 11/22/2024 10 - 25 HH CCT GFR/BSA.pred SerPlBld [id number] 48.0 Below low normal 11/22/2024 59 - HHCCT Calcium SerPl-mCnc 8.8 mg/dL Normal 11/22/2024 8.7 - 10.5 HHCCT Sodium SerPl-sCnc 137.0 mmol/L Normal 11/22/2024 136 - 14 5 HHCCT Anion Gap Bld-sCnc 9.0 Normal 11/22/2024 7 - 17 HHCCT BUN SerPl-mCnc 36.0 mg/dL Above high normal 11/22/2024 8 - 2 1 HHCCT Creat SerPl-mCnc 1.6 mg/dL Above high normal 11/22/2024 0.5 - 1.3 HHCCT CO2 SerPl-sCnc 27.0 mmol/L Normal 11/22/2024 22 - 33 HH CCT Glucose SerPl-mCnc 178.0 mg/dL Above high normal 11/22/2024 65 - 99 HHCCT Potassium SerPl-sCnc 4.2 mmol/L Normal 11/22/2024 3.4 - 5.3 HHCCT Chloride SerPl-sCnc 101.0 mmol/L Normal 11/22/2024 98 - 1 07 HHCCT Magnesium SerPl-mCnc 2.0 mg/dL Normal 11/22/2024 1.6 - 2.7 HHCCT POC Glucose 220.0 mg/dL Above high normal 11/22/2024 65 - 99 HHCCT POC Glucose 193.0 mg/dL Above high normal 11/21/2024 65 - 99 HHCCT POC Glucose 246.0 mg/dL Above high normal 11/21/2024 65 - 99 HHCCT POC Glucose 175.0 mg/dL Above high normal 11/21/2024 65 - 99 HHCCT Magnesium SerPl-mCnc 2.1 mg/dL Normal 11/21/2024 1.6 - 2.7 HHCCT Anion Gap Bld-sCnc 10.0 Normal 11/21/2024 7 - 17 HHCCT Creat SerPl-mCnc 1.8 mg/dL Above high normal 11/21/2024 0.5 - 1.3 HHCCT BUN SerPl-mCnc 38.0 mg/dL Above high normal 11/21/2024 8 - 2 1 HHCCT BUN/Creat SerPl 21.0 Ratio Normal 11/21/2024 10 - 25 HH CCT Potassium SerPl-sCnc 3.7 mmol/L Normal 11/21/2024 3.4 - 5.3 HHCCT Sodium SerPl-sCnc 136.0 mmol/L Normal 11/21/2024 136 - 14 5 HHCCT Chloride SerPl-sCnc 99.0 mmol/L Normal 11/21/2024 98 - 10 7 HHCCT GFR/BSA.pred SerPlBld PAQ-DXY-FuOBve 42.0 Below low normal 11/21/2024 59 - HHCCT Calcium SerPl-mCnc 8.8 mg/dL Normal 11/21/2024 8.7 - 10.5 HHCCT Glucose SerPl-mCnc 153.0 mg/dL Above high normal 11/21/2024 65 - 99 HHCCT CO2 SerPl-sCnc 27.0 mmol/L Normal 11/21/2024 22 - 33 HH CCT Hgb Bld-mCnc 8.2 g/dL Below low normal 11/21/2024 13 - 17.7 HHCCT RBC num Bld Auto 2.95 Mil/uL Below low normal 11/21/2024 4.5 - 6.2 HHCCT MCV RBC Auto 91.0 fL Normal 11/21/2024 80 - 100 HHCCT MCH RBC Qn Auto 27.8 pg Normal 11/21/2024 27 - [address] Platelet num Bld Auto 329.0 Thou/uL Normal 11/21/2024 150 - 450 HHCCT MCHC RBC Auto-mCnc 30.7 g/dL Normal 11/21/2024 30 - 36 HHCCT PMV Bld Auto 10.4 fL Normal 11/21/2024 7.5 - 12.5 HHCCT WBC num Bld Auto 14.0 Thou/uL Above high normal 11/21/2024 4 - 11 HHCCT RDW RBC Auto-Rto 17.8 % Above high normal 11/21/2024 11.5 - 14.5 HHCCT Hct VFr Bld Auto 26.7 % Below low normal 11/21/2024 39 - 54 HHCCT POC Glucose 288.0 mg/dL Above high normal 11/21/2024 65 - 99 HHCCT POC Glucose 212.0 mg/dL Above high normal 11/20/2024 65 - 99 HHCCT POC Glucose 167.0 mg/dL Above high normal 11/20/2024 65 - 99 HHCCT POC Glucose 166.0 mg/dL Above high normal 11/20/2024 65 - 99 HHCCT Chloride SerPl-sCnc 98.0 mmol/L Normal 11/20/2024 98 - 10 7 HHCCT Creat SerPl-mCnc 1.9 mg/dL Above high normal 11/20/2024 0.5 - 1.3 HHCCT CO2 SerPl-sCnc 30.0 mmol/L Normal 11/20/2024 22 - 33 HH CCT BUN/Creat SerPl 25.0 Ratio Normal 11/20/2024 10 - 25 HH CCT Anion Gap Bld-sCnc 9.0 Normal 11/20/2024 7 - 17 HHCCT Sodium SerPl-sCnc 137.0 mmol/L Normal 11/20/2024 136 - 14 5 HHCCT Potassium SerPl-sCnc 3.8 mmol/L Normal 11/20/2024 3.4 - 5.3 HHCCT Calcium SerPl-mCnc 9.0 mg/dL Normal 11/20/2024 8.7 - 10.5 HHCCT GFR/BSA.pred SerPlBld [id number]-GhSNfw 39.0 Below low normal 11/20/2024 59 - HHCCT Glucose SerPl-mCnc 155.0 mg/dL Above high normal 11/20/2024 65 - 99 HHCCT BUN SerPl-mCnc 47.0 mg/dL Above high normal 11/20/2024 8 - 2 1 HHCCT Magnesium SerPl-mCnc 2.2 mg/dL Normal 11/20/2024 1.6 - 2.7 HHCCT MCV RBC Auto 90.0 fL Normal 11/20/2024 80 - 100 HHCCT MCH RBC Qn Auto 27.6 pg Normal 11/20/2024 27 - [address] MCHC RBC Auto-mCnc 30.5 g/dL Normal 11/20/2024 30 - 36 HHCCT PMV Bld Auto 10.7 fL Normal 11/20/2024 7.5 - 12.5 HHCCT WBC num Bld Auto 11.9 Thou/uL Above high normal 11/20/2024 4 - 11 HHCCT RBC num Bld Auto 3.01 Mil/uL Below low normal 11/20/2024 4.5 - 6.2 HHCCT RDW RBC Auto-Rto 17.5 % Above high normal 11/20/2024 11.5 - 14.5 HHCCT Hct VFr Bld Auto 27.2 % Below low normal 11/20/2024 39 - 54 HHCCT Hgb Bld-mCnc 8.3 g/dL Below low normal 11/20/2024 13 - 17.7 HHCCT Platelet num Bld Auto 339.0 Thou/uL Normal 11/20/2024 150 - 450 HHCCT POC Glucose 274.0 mg/dL Above high normal 11/19/2024 65 - 99 HHCCT Osmolality Ur 201.0 mOsm/Kg Normal 11/19/2024 50 - 1200 H HCCT Sodium Ur-sCnc 21.0 mmol/L Normal 11/19/2024 HH CCT Creat Ur-mCnc 31.0 mg/dL Normal 11/19/2024 HHCC T Chloride Ur-sCnc 23.0 mmol/L Normal 11/19/2024 HHCCT UUN Ur-mCnc 273.0 mg/dL Normal 11/19/2024 HHCCT RBC num/area UrnS HPF 2.0 per hpf Normal 11/19/2024 0 - 4 HHCCT WBC num/area UrnS HPF >25.0 per hpf Above high normal 11/19/2024 0 - 4 HHCCT Sp Gr Ur Strip 1.008 Normal 11/19/2024 1.003 - 1.03 HHCCT Hgb Ur Ql Strip Negative Normal 11/19/2024 - [facility] CT Clarity Ur Clear Normal 11/19/2024 HHCCT pH Ur Strip 6.0 Normal 11/19/2024 5 - 8 HHCCT Ketones Ur Strip-mCnc Negative Normal 11/19/2024 - [facility] Bilirub Ur Strip-mCnc Negative Normal 11/19/2024 - CCT Prot Ur Strip-mCnc Negative Normal 11/19/2024 - CCT Color Ur Yellow Normal 11/19/2024 HHCCT Nitrite Ur Ql Strip Negative Normal 11/19/2024 - [facility] Glucose Ur Strip-mCnc 0.0 mg/dL Normal 11/19/2024 0 - 99 HHCCT Leukocyte esterase Ur Ql Strip Large Abnormal 11/19/2024 - HHCCT POC Glucose 205.0 mg/dL Above high normal 11/19/2024 65 - 99 HHCCT POC Glucose 190.0 mg/dL Above high normal 11/19/2024 65 - 99 HHCCT Magnesium SerPl-mCnc 2.1 mg/dL Normal 11/19/2024 1.6 - 2.7 HHCCT Potassium SerPl-sCnc 3.7 mmol/L Normal 11/19/2024 3.4 - 5.3 HHCCT Anion Gap Bld-sCnc 10.0 Normal 11/19/2024 7 - 17 HHCCT Creat SerPl-mCnc 1.8 mg/dL Above high normal 11/19/2024 0.5 - 1.3 HHCCT GFR/BSA.pred SerPlBld DZW-QNP-XtBLqb 42.0 Below low normal 11/19/2024 59 - HHCCT BUN/Creat SerPl 24.0 Ratio Normal 11/19/2024 10 - 25 HH CCT Chloride SerPl-sCnc 92.0 mmol/L Below low normal 11/19/2024 98 - 107 HHCCT BUN SerPl-mCnc 43.0 mg/dL Above high normal 11/19/2024 8 - 2 1 HHCCT Calcium SerPl-mCnc 9.1 mg/dL Normal 11/19/2024 8.7 - 10.5 HHCCT CO2 SerPl-sCnc 30.0 mmol/L Normal 11/19/2024 22 - 33 HH CCT Glucose SerPl-mCnc 169.0 mg/dL Above high normal 11/19/2024 65 - 99 HHCCT Sodium SerPl-sCnc 132.0 mmol/L Below low normal 11/19/2024 1 36 - 145 HHCCT RBC num Bld Auto 2.99 Mil/uL Below low normal 11/19/2024 4.5 - 6.2 HHCCT RDW RBC Auto-Rto 17.2 % Above high normal 11/19/2024 11.5 - 14.5 HHCCT Hgb Bld-mCnc 8.2 g/dL Below low normal 11/19/2024 13 - 17.7 HHCCT PMV Bld Auto 10.8 fL Normal 11/19/2024 7.5 - 12.5 HHCCT MCH RBC Qn Auto 27.4 pg Normal 11/19/2024 27 - [address] MCV RBC Auto 89.0 fL Normal 11/19/2024 80 - 100 HHCCT Platelet num Bld Auto 354.0 Thou/uL Normal 11/19/2024 150 - 450 HHCCT MCHC RBC Auto-mCnc 30.8 g/dL Normal 11/19/2024 30 - 36 HHCCT WBC num Bld Auto 10.1 Thou/uL Normal 11/19/2024 4 - 11 HHCCT Hct VFr Bld Auto 26.6 % Below low normal 11/19/2024 39 - 54 HHCCT POC Glucose 253.0 mg/dL Above high normal 11/19/2024 65 - 99 HHCCT POC Glucose 305.0 mg/dL Above high normal 11/18/2024 65 - 99 HHCCT POC Glucose 253.0 mg/dL Above high normal 11/18/2024 65 - 99 HHCCT POC Glucose 129.0 mg/dL Above high normal 11/18/2024 65 - 99 HHCCT Magnesium SerPl-mCnc 2.0 mg/dL Normal 11/18/2024 1.6 - 2.7 HHCCT CO2 SerPl-sCnc 29.0 mmol/L Normal 11/18/2024 22 - 33 HH CCT Sodium SerPl-sCnc 129.0 mmol/L Below low normal 11/18/2024 1 36 - 145 HHCCT Potassium SerPl-sCnc 3.6 mmol/L Normal 11/18/2024 3.4 - 5.3 HHCCT Anion Gap Bld-sCnc 11.0 Normal 11/18/2024 7 - 17 HHCCT Chloride SerPl-sCnc 89.0 mmol/L Below low normal 11/18/2024 98 - 107 HHCCT BUN SerPl-mCnc 45.0 mg/dL Above high normal 11/18/2024 8 - 2 1 HHCCT BUN/Creat SerPl 25.0 Ratio Normal 11/18/2024 10 - 25 HH CCT Calcium SerPl-mCnc 8.9 mg/dL Normal 11/18/2024 8.7 - 10.5 HHCCT GFR/BSA.pred SerPlBld GYV-GYB-RrHUav 42.0 Below low normal 11/18/2024 59 - HHCCT Creat SerPl-mCnc 1.8 mg/dL Above high normal 11/18/2024 0.5 - 1.3 HHCCT Glucose SerPl-mCnc 114.0 mg/dL Above high normal 11/18/2024 65 - 99 HHCCT CK SerPl-cCnc 49.0 U/L Normal 11/18/2024 24 - 204 HHCCT Platelet num Bld Auto 349.0 Thou/uL Normal 11/18/2024 150 - 450 HHCCT WBC num Bld Auto 12.3 Thou/uL Above high normal 11/18/2024 4 - 11 HHCCT Hct VFr Bld Auto 25.5 % Below low normal 11/18/2024 39 - 54 HHCCT RDW RBC Auto-Rto 17.1 % Above high normal 11/18/2024 11.5 - 14.5 HHCCT MCH RBC Qn Auto 27.9 pg Normal 11/18/2024 27 - [address] MCV RBC Auto 88.0 fL Normal 11/18/2024 80 - 100 HHCCT Hgb Bld-mCnc 8.1 g/dL Below low normal 11/18/2024 13 - 17.7 HHCCT MCHC RBC Auto-mCnc 31.8 g/dL Normal 11/18/2024 30 - 36 HHCCT PMV Bld Auto 10.6 fL Normal 11/18/2024 7.5 - 12.5 HHCCT RBC num Bld Auto 2.9 Mil/uL Below low normal 11/18/2024 4.5 - 6.2 HHCCT POC Glucose 177.0 mg/dL Above high normal 11/17/2024 65 - 99 HHCCT POC Glucose 140.0 mg/dL Above high normal 11/17/2024 65 - 99 HHCCT POC Glucose 153.0 mg/dL Above high normal 11/17/2024 65 - 99 HHCCT Phosphate SerPl-mCnc 3.5 mg/dL Normal 11/17/2024 2.7 - 4.5 HHCCT Magnesium SerPl-mCnc 2.0 mg/dL Normal 11/17/2024 1.6 - 2.7 HHCCT POC Glucose 206.0 mg/dL Above high normal 11/17/2024 65 - 99 HHCCT GFR/BSA.pred SerPlBld [id number]-DuHUzg 42.0 Below low normal 11/17/2024 59 - HHCCT Chloride SerPl-sCnc 87.0 mmol/L Below low normal 11/17/2024 98 - 107 HHCCT AST SerPl-cCnc 24.0 U/L Normal 11/17/2024 10 - 55 HHCC T Potassium SerPl-sCnc 3.7 mmol/L Normal 11/17/2024 3.4 - 5.3 HHCCT Globulin Ser Calc-mCnc 3.7 g/dL Normal 11/17/2024 1.5 - 3.9 HHCCT Prot SerPl-mCnc 6.6 g/dL Normal 11/17/2024 6.3 - 8.[address] BUN/Creat SerPl 30.0 Ratio Above high normal 11/17/2024 10 - 25 HHCCT Sodium SerPl-sCnc 128.0 mmol/L Below low normal 11/17/2024 1 36 - 145 HHCCT Glucose SerPl-mCnc 171.0 mg/dL Above high normal 11/17/2024 65 - 99 HHCCT ALP SerPl-cCnc 117.0 U/L Normal 11/17/2024 45 - 128 HHCC T Bilirub SerPl-mCnc 0.2 mg/dL Normal 11/17/2024 0.2 - 1 HHCCT Calcium SerPl-mCnc 9.4 mg/dL Normal 11/17/2024 8.7 - 10.5 HHCCT Albumin SerPl-mCnc 2.9 g/dL Below low normal 11/17/2024 3.4 - 4.8 HHCCT BUN SerPl-mCnc 54.0 mg/dL Above high normal 11/17/2024 8 - 2 1 HHCCT ALT SerPl-cCnc 19.0 U/L Normal 11/17/2024 10 - 55 HHCC T Albumin/Glob SerPl 0.8 Ratio Below low normal 11/17/2024 1 - 3 HHCCT Anion Gap Bld-sCnc 11.0 Normal 11/17/2024 7 - 17 HHCCT Creat SerPl-mCnc 1.8 mg/dL Above high normal 11/17/2024 0.5 - 1.3 HHCCT CO2 SerPl-sCnc 30.0 mmol/L Normal 11/17/2024 22 - 33 HH CCT RDW RBC Auto-Rto 16.5 % Above high normal 11/17/2024 11.5 - 14.5 HHCCT Platelet num Bld Auto 373.0 Thou/uL Normal 11/17/2024 150 - 450 HHCCT RBC num Bld Auto 2.94 Mil/uL Below low normal 11/17/2024 4.5 - 6.2 HHCCT WBC num Bld Auto 11.2 Thou/uL Above high normal 11/17/2024 4 - 11 HHCCT PMV Bld Auto 10.4 fL Normal 11/17/2024 7.5 - 12.5 HHCCT Hgb Bld-mCnc 8.2 g/dL Below low normal 11/17/2024 13 - 17.7 HHCCT MCV RBC Auto 85.0 fL Normal 11/17/2024 80 - 100 HHCCT MCHC RBC Auto-mCnc 32.8 g/dL Normal 11/17/2024 30 - 36 HHCCT MCH RBC Qn Auto 27.9 pg Normal 11/17/2024 27 - [address] Hct VFr Bld Auto 25.0 % Below low normal 11/17/2024 39 - 54 HHCCT POC Glucose 296.0 mg/dL Above high normal 11/17/2024 65 - 99 HHCCT POC Glucose 236.0 mg/dL Above high normal 11/16/2024 65 - 99 HHCCT POC Glucose 246.0 mg/dL Above high normal 11/16/2024 65 - 99 HHCCT POC Glucose 211.0 mg/dL Above high normal 11/16/2024 65 - 99 HHCCT Magnesium SerPl-mCnc 2.1 mg/dL Normal 11/16/2024 1.6 - 2.7 HHCCT Calcium SerPl-mCnc 9.1 mg/dL Normal 11/16/2024 8.7 - 10.5 HHCCT CO2 SerPl-sCnc 32.0 mmol/L Normal 11/16/2024 22 - 33 HH CCT GFR/BSA.pred SerPlBld [id number] 39.0 Below low normal 11/16/2024 59 - HHCCT Sodium SerPl-sCnc 130.0 mmol/L Below low normal 11/16/2024 1 36 - 145 HHCCT Anion Gap Bld-sCnc 11.0 Normal 11/16/2024 7 - 17 HHCCT Potassium SerPl-sCnc 3.6 mmol/L Normal 11/16/2024 3.4 - 5.3 HHCCT Creat SerPl-mCnc 1.9 mg/dL Above high normal 11/16/2024 0.5 - 1.3 HHCCT BUN/Creat SerPl 29.0 Ratio Above high normal 11/16/2024 10 - 25 HHCCT BUN SerPl-mCnc 55.0 mg/dL Above high normal 11/16/2024 8 - 2 1 HHCCT Chloride SerPl-sCnc 87.0 mmol/L Below low normal 11/16/2024 98 - 107 HHCCT Glucose SerPl-mCnc 190.0 mg/dL Above high normal 11/16/2024 65 - 99 HHCCT Phosphate SerPl-mCnc 3.8 mg/dL Normal 11/16/2024 2.7 - 4.5 HHCCT RBC num Bld Auto 2.97 Mil/uL Below low normal 11/16/2024 4.5 - 6.2 HHCCT MCV RBC Auto 86.0 fL Normal 11/16/2024 80 - 100 HHCCT WBC num Bld Auto 10.7 Thou/uL Normal 11/16/2024 4 - 11 HHCCT Hgb Bld-mCnc 8.1 g/dL Below low normal 11/16/2024 13 - 17.7 HHCCT Platelet num Bld Auto 408.0 Thou/uL Normal 11/16/2024 150 - 450 HHCCT Hct VFr Bld Auto 25.6 % Below low normal 11/16/2024 39 - 54 HHCCT RDW RBC Auto-Rto 16.8 % Above high normal 11/16/2024 11.5 - 14.5 HHCCT PMV Bld Auto 10.4 fL Normal 11/16/2024 7.5 - 12.5 HHCCT MCH RBC Qn Auto 27.3 pg Normal 11/16/2024 27 - [address] MCHC RBC Auto-mCnc 31.6 g/dL Normal 11/16/2024 30 - 36 HHCCT POC Glucose 330.0 mg/dL Above high normal 11/16/2024 65 - 99 HHCCT POC Glucose 308.0 mg/dL Above high normal 11/15/2024 65 - 99 HHCCT POC Glucose 305.0 mg/dL Above high normal 11/15/2024 65 - 99 HHCCT pro BNP, N-terminal 429.0 pg/mL Above high normal 11/15/2024 - 125 HHCCT Phosphate SerPl-mCnc 4.3 mg/dL Normal 11/15/2024 2.7 - 4.5 HHCCT Chloride SerPl-sCnc 85.0 mmol/L Below low normal 11/15/2024 98 - 107 HHCCT Creat SerPl-mCnc 1.8 mg/dL Above high normal 11/15/2024 0.5 - 1.3 HHCCT Glucose SerPl-mCnc 218.0 mg/dL Above high normal 11/15/2024 65 - 99 HHCCT Sodium SerPl-sCnc 131.0 mmol/L Below low normal 11/15/2024 1 36 - 145 HHCCT Calcium SerPl-mCnc 9.4 mg/dL Normal 11/15/2024 8.7 - 10.5 HHCCT Anion Gap Bld-sCnc 12.0 Normal 11/15/2024 7 - 17 HHCCT Potassium SerPl-sCnc 3.9 mmol/L Normal 11/15/2024 3.4 - 5.3 HHCCT GFR/BSA.pred SerPlBld [id number] 42.0 Below low normal 11/15/2024 59 - HHCCT BUN SerPl-mCnc 59.0 mg/dL Above high normal 11/15/2024 8 - 2 1 HHCCT CO2 SerPl-sCnc 34.0 mmol/L Above high normal 11/15/2024 22 - 33 HHCCT BUN/Creat SerPl 33.0 Ratio Above high normal 11/15/2024 10 - 25 HHCCT Magnesium SerPl-mCnc 2.1 mg/dL Normal 11/15/2024 1.6 - 2.7 HHCCT Hgb Bld-mCnc 8.9 g/dL Below low normal 11/15/2024 13 - 17.7 HHCCT RBC num Bld Auto 3.27 Mil/uL Below low normal 11/15/2024 4.5 - 6.2 HHCCT WBC num Bld Auto 11.8 Thou/uL Above high normal 11/15/2024 4 - 11 HHCCT RDW RBC Auto-Rto 16.8 % Above high normal 11/15/2024 11.5 - 14.5 HHCCT MCH RBC Qn Auto 27.2 pg Normal 11/15/2024 27 - [address] Hct VFr Bld Auto 28.9 % Below low normal 11/15/2024 39 - 54 HHCCT MCV RBC Auto 88.0 fL Normal 11/15/2024 80 - 100 HHCCT Platelet num Bld Auto 485.0 Thou/uL Above high normal 11/15/2024 150 - 450 HHCCT PMV Bld Auto 10.4 fL Normal 11/15/2024 7.5 - 12.5 HHCCT MCHC RBC Auto-mCnc 30.8 g/dL Normal 11/15/2024 30 - 36 HHCCT POC Glucose 230.0 mg/dL Above high normal 11/15/2024 65 - 99 HHCCT POC Glucose 252.0 mg/dL Above high normal 11/15/2024 65 - 99 HHCCT POC Glucose 237.0 mg/dL Above high normal 11/14/2024 65 - 99 HHCCT POC Glucose 274.0 mg/dL Above high normal 11/14/2024 65 - 99 HHCCT Magnesium SerPl-mCnc 2.1 mg/dL Normal 11/14/2024 1.6 - 2.7 HHCCT Phosphate SerPl-mCnc 6.1 mg/dL Above high normal 11/14/2024 2.7 - 4.5 HHCCT GFR/BSA.pred SerPlBld [id number] 35.0 Below low normal 11/14/2024 59 - HHCCT Creat SerPl-mCnc 2.1 mg/dL Above high normal 11/14/2024 0.5 - 1.3 HHCCT Anion Gap Bld-sCnc 13.0 Normal 11/14/2024 7 - 17 HHCCT Calcium SerPl-mCnc 9.4 mg/dL Normal 11/14/2024 8.7 - 10.5 HHCCT Potassium SerPl-sCnc 4.0 mmol/L Normal 11/14/2024 3.4 - 5.3 HHCCT Chloride SerPl-sCnc 85.0 mmol/L Below low normal 11/14/2024 98 - 107 HHCCT BUN/Creat SerPl 31.0 Ratio Above high normal 11/14/2024 10 - 25 HHCCT Glucose SerPl-mCnc 319.0 mg/dL Above high normal 11/14/2024 65 - 99 HHCCT CO2 SerPl-sCnc 34.0 mmol/L Above high normal 11/14/2024 22 - 33 HHCCT Sodium SerPl-sCnc 132.0 mmol/L Below low normal 11/14/2024 1 36 - 145 HHCCT BUN SerPl-mCnc 65.0 mg/dL Above high normal 11/14/2024 8 - 2 1 HHCCT MCV RBC Auto 89.0 fL Normal 11/14/2024 80 - 100 HHCCT RBC num Bld Auto 3.25 Mil/uL Below low normal 11/14/2024 4.5 - 6.2 HHCCT Platelet num Bld Auto 471.0 Thou/uL Above high normal 11/14/2024 150 - 450 HHCCT Hgb Bld-mCnc 8.9 g/dL Below low normal 11/14/2024 13 - 17.7 HHCCT RDW RBC Auto-Rto 17.1 % Above high normal 11/14/2024 11.5 - 14.5 HHCCT MCHC RBC Auto-mCnc 30.8 g/dL Normal 11/14/2024 30 - 36 HHCCT MCH RBC Qn Auto 27.4 pg Normal 11/14/2024 27 - [address] Hct VFr Bld Auto 28.9 % Below low normal 11/14/2024 39 - 54 HHCCT WBC num Bld Auto 10.6 Thou/uL Normal 11/14/2024 4 - 11 HHCCT PMV Bld Auto 10.3 fL Normal 11/14/2024 7.5 - 12.5 HHCCT POC Glucose 224.0 mg/dL Above high normal 11/14/2024 65 - 99 HHCCT POC Glucose 268.0 mg/dL Above high normal 11/14/2024 65 - 99 HHCCT POC Glucose 366.0 mg/dL Above high normal 11/14/2024 65 - 99 HHCCT POC Glucose 196.0 mg/dL Above high normal 11/13/2024 65 - 99 HHCCT POC Glucose 232.0 mg/dL Above high normal 11/13/2024 65 - 99 HHCCT POC Glucose 159.0 mg/dL Above high normal 11/13/2024 65 - 99 HHCCT pro BNP, N-terminal 994.0 pg/mL Above high normal 11/13/2024 - 125 HHCCT Magnesium SerPl-mCnc 1.7 mg/dL Normal 11/13/2024 1.6 - 2.7 HHCCT Phosphate SerPl-mCnc 4.9 mg/dL Above high normal 11/13/2024 2.7 - 4.5 HHCCT Glucose SerPl-mCnc 154.0 mg/dL Above high normal 11/13/2024 65 - 99 HHCCT Calcium SerPl-mCnc 9.7 mg/dL Normal 11/13/2024 8.7 - 10.5 HHCCT Sodium SerPl-sCnc 140.0 mmol/L Normal 11/13/2024 136 - 14 5 HHCCT Creat SerPl-mCnc 1.7 mg/dL Above high normal 11/13/2024 0.5 - 1.3 HHCCT BUN SerPl-mCnc 44.0 mg/dL Above high normal 11/13/2024 8 - 2 1 HHCCT BUN/Creat SerPl 26.0 Ratio Above high normal 11/13/2024 10 - 25 HHCCT Anion Gap Bld-sCnc 14.0 Normal 11/13/2024 7 - 17 HHCCT Chloride SerPl-sCnc 91.0 mmol/L Below low normal 11/13/2024 98 - 107 HHCCT Potassium SerPl-sCnc 3.6 mmol/L Normal 11/13/2024 3.4 - 5.3 HHCCT CO2 SerPl-sCnc 35.0 mmol/L Above high normal 11/13/2024 22 - 33 HHCCT GFR/BSA.pred SerPlBld [id number] 45.0 Below low normal 11/13/2024 59 - HHCCT POC Glucose 156.0 mg/dL Above high normal 11/13/2024 65 - 99 HHCCT POC Glucose 139.0 mg/dL Above high normal 11/13/2024 65 - 99 HHCCT POC Glucose 248.0 mg/dL Above high normal 11/13/2024 65 - 99 HHCCT POC Glucose 200.0 mg/dL Above high normal 11/12/2024 65 - 99 HHCCT POC Glucose 286.0 mg/dL Above high normal 11/12/2024 65 - 99 HHCCT POC Glucose 140.0 mg/dL Above high normal 11/12/2024 65 - 99 HHCCT Phosphate SerPl-mCnc 4.5 mg/dL Normal 11/12/2024 2.7 - 4.5 HHCCT BUN SerPl-mCnc 44.0 mg/dL Above high normal 11/12/2024 8 - 2 1 HHCCT Potassium SerPl-sCnc 3.7 mmol/L Normal 11/12/2024 3.4 - 5.3 HHCCT Anion Gap Bld-sCnc 12.0 Normal 11/12/2024 7 - 17 HHCCT Chloride SerPl-sCnc 96.0 mmol/L Below low normal 11/12/2024 98 - 107 HHCCT CO2 SerPl-sCnc 30.0 mmol/L Normal 11/12/2024 22 - 33 HH CCT Sodium SerPl-sCnc 138.0 mmol/L Normal 11/12/2024 136 - 14 5 HHCCT Creat SerPl-mCnc 1.6 mg/dL Above high normal 11/12/2024 0.5 - 1.3 HHCCT Glucose SerPl-mCnc 126.0 mg/dL Above high normal 11/12/2024 65 - 99 HHCCT BUN/Creat SerPl 28.0 Ratio Above high normal 11/12/2024 10 - 25 HHCCT GFR/BSA.pred SerPlBld [id number]-IvGVum 48.0 Below low normal 11/12/2024 59 - HHCCT Calcium SerPl-mCnc 9.1 mg/dL Normal 11/12/2024 8.7 - 10.5 HHCCT Magnesium SerPl-mCnc 1.8 mg/dL Normal 11/12/2024 1.6 - 2.7 HHCCT WBC num Bld Auto 11.1 Thou/uL Above high normal 11/12/2024 4 - 11 HHCCT RBC num Bld Auto 2.94 Mil/uL Below low normal 11/12/2024 4.5 - 6.2 HHCCT MCV RBC Auto 90.0 fL Normal 11/12/2024 80 - 100 HHCCT PMV Bld Auto 9.8 fL Normal 11/12/2024 7.5 - 12.5 HHCCT Hct VFr Bld Auto 26.3 % Below low normal 11/12/2024 39 - 54 HHCCT MCH RBC Qn Auto 27.6 pg Normal 11/12/2024 27 - [address] Hgb Bld-mCnc 8.1 g/dL Below low normal 11/12/2024 13 - 17.7 HHCCT MCHC RBC Auto-mCnc 30.8 g/dL Normal 11/12/2024 30 - 36 HHCCT Platelet num Bld Auto 456.0 Thou/uL Above high normal 11/12/2024 150 - 450 HHCCT RDW RBC Auto-Rto 16.9 % Above high normal 11/12/2024 11.5 - 14.5 HHCCT POC Glucose 140.0 mg/dL Above high normal 11/12/2024 65 - 99 HHCCT POC Glucose 147.0 mg/dL Above high normal 11/12/2024 65 - 99 HHCCT POC Glucose 130.0 mg/dL Above high normal 11/12/2024 65 - 99 HHCCT POC Glucose 224.0 mg/dL Above high normal 11/12/2024 65 - 99 HHCCT POC Glucose 149.0 mg/dL Above high normal 11/11/2024 65 - 99 HHCCT Phosphate SerPl-mCnc 4.5 mg/dL Normal 11/11/2024 2.7 - 4.5 HHCCT Magnesium SerPl-mCnc 1.8 mg/dL Normal 11/11/2024 1.6 - 2.7 HHCCT CO2 SerPl-sCnc 30.0 mmol/L Normal 11/11/2024 22 - 33 HH CCT GFR/BSA.pred SerPlBld [id number]-TwDUzs 45.0 Below low normal 11/11/2024 59 - HHCCT BUN/Creat SerPl 29.0 Ratio Above high normal 11/11/2024 10 - 25 HHCCT Potassium SerPl-sCnc 3.4 mmol/L Normal 11/11/2024 3.4 - 5.3 HHCCT Calcium SerPl-mCnc 9.0 mg/dL Normal 11/11/2024 8.7 - 10.5 HHCCT BUN SerPl-mCnc 49.0 mg/dL Above high normal 11/11/2024 8 - 2 1 HHCCT Chloride SerPl-sCnc 97.0 mmol/L Below low normal 11/11/2024 98 - 107 HHCCT Glucose SerPl-mCnc 124.0 mg/dL Above high normal 11/11/2024 65 - 99 HHCCT Sodium SerPl-sCnc 139.0 mmol/L Normal 11/11/2024 136 - 14 5 HHCCT Anion Gap Bld-sCnc 12.0 Normal 11/11/2024 7 - 17 HHCCT Creat SerPl-mCnc 1.7 mg/dL Above high normal 11/11/2024 0.5 - 1.3 HHCCT POC Glucose 139.0 mg/dL Above high normal 11/11/2024 65 - 99 HHCCT POC Glucose 202.0 mg/dL Above high normal 11/11/2024 65 - 99 HHCCT POC Glucose 174.0 mg/dL Above high normal 11/11/2024 65 - 99 HHCCT Phosphate SerPl-mCnc 4.7 mg/dL Above high normal 11/11/2024 2.7 - 4.5 HHCCT Bilirub Direct SerPl-mCnc 0.1 mg/dL Normal 11/11/2024 0 - 0.2 HHCCT Prot SerPl-mCnc 6.4 g/dL Normal 11/11/2024 6.3 - 8.[address] ALP SerPl-cCnc 207.0 U/L Above high normal 11/11/2024 45 - 1 28 HHCCT ALT SerPl-cCnc 14.0 U/L Normal 11/11/2024 10 - 55 HHCC T Albumin/Glob SerPl 0.7 Ratio Below low normal 11/11/2024 1 - 3 HHCCT Albumin SerPl-mCnc 2.6 g/dL Below low normal 11/11/2024 3.4 - 4.8 HHCCT Bilirub SerPl-mCnc 0.2 mg/dL Normal 11/11/2024 0.2 - 1 HHCCT AST SerPl-cCnc 24.0 U/L Normal 11/11/2024 10 - 55 HHCC T Globulin Ser Calc-mCnc 3.8 g/dL Normal 11/11/2024 1.5 - 3.9 HHCCT Magnesium SerPl-mCnc 2.0 mg/dL Normal 11/11/2024 1.6 - 2.7 HHCCT pro BNP, N-terminal 2964.0 pg/mL Above high normal 5 - 125 HHCCT BUN/Creat SerPl 28.0 Ratio Above high normal 11/11/2024 10 - 25 HHCCT Creat SerPl-mCnc 2.0 mg/dL Above high normal 11/11/2024 0.5 - 1.3 HHCCT Glucose SerPl-mCnc 151.0 mg/dL Above high normal 11/11/2024 65 - 99 HHCCT BUN SerPl-mCnc 56.0 mg/dL Above high normal 11/11/2024 8 - 2 1 HHCCT GFR/BSA.pred SerPlBld [id number]-NhOPym 37.0 Below low normal 11/11/2024 59 - HHCCT Potassium SerPl-sCnc 3.8 mmol/L Normal 11/11/2024 3.4 - 5.3 HHCCT Calcium SerPl-mCnc 8.7 mg/dL Normal 11/11/2024 8.7 - 10.5 HHCCT CO2 SerPl-sCnc 27.0 mmol/L Normal 11/11/2024 22 - 33 HH CCT Chloride SerPl-sCnc 99.0 mmol/L Normal 11/11/2024 98 - 10 7 HHCCT Anion Gap Bld-sCnc 11.0 Normal 11/11/2024 7 - 17 HHCCT Sodium SerPl-sCnc 137.0 mmol/L Normal 11/11/2024 136 - 14 5 HHCCT CK SerPl-cCnc 37.0 U/L Normal 11/11/2024 24 - 204 HHCCT Hgb Bld-mCnc 8.2 g/dL Below low normal 11/11/2024 13 - 17.7 HHCCT RBC num Bld Auto 2.91 Mil/uL Below low normal 11/11/2024 4.5 - 6.2 HHCCT Hct VFr Bld Auto 26.1 % Below low normal 11/11/2024 39 - 54 HHCCT Platelet num Bld Auto 460.0 Thou/uL Above high normal 11/11/2024 150 - 450 HHCCT PMV Bld Auto 9.8 fL Normal 11/11/2024 7.5 - 12.5 HHCCT WBC num Bld Auto 13.2 Thou/uL Above high normal 11/11/2024 4 - 11 HHCCT RDW RBC Auto-Rto 17.0 % Above high normal 11/11/2024 11.5 - 14.5 HHCCT MCV RBC Auto 90.0 fL Normal 11/11/2024 80 - 100 HHCCT MCH RBC Qn Auto 28.2 pg Normal 11/11/2024 27 - [address] MCHC RBC Auto-mCnc 31.4 g/dL Normal 11/11/2024 30 - 36 HHCCT POC Glucose 229.0 mg/dL Above high normal 11/11/2024 65 - 99 HHCCT POC Glucose 230.0 mg/dL Above high normal 11/10/2024 65 - 99 HHCCT Magnesium SerPl-mCnc 2.0 mg/dL Normal 11/10/2024 1.6 - 2.7 HHCCT Sodium SerPl-sCnc 137.0 mmol/L Normal 11/10/2024 136 - 14 5 HHCCT BUN SerPl-mCnc 57.0 mg/dL Above high normal 11/10/2024 8 - 2 1 HHCCT CO2 SerPl-sCnc 25.0 mmol/L Normal 11/10/2024 22 - 33 HH CCT Creat SerPl-mCnc 1.9 mg/dL Above high normal 11/10/2024 0.5 - 1.3 HHCCT Anion Gap Bld-sCnc 11.0 Normal 11/10/2024 7 - 17 HHCCT Glucose SerPl-mCnc 135.0 mg/dL Above high normal 11/10/2024 65 - 99 HHCCT Potassium SerPl-sCnc 3.8 mmol/L Normal 11/10/2024 3.4 - 5.3 HHCCT BUN/Creat SerPl 30.0 Ratio Above high normal 11/10/2024 10 - 25 HHCCT Calcium SerPl-mCnc 8.5 mg/dL Below low normal 11/10/2024 8.7 - 10.5 HHCCT Chloride SerPl-sCnc 101.0 mmol/L Normal 11/10/2024 98 - 1 07 HHCCT GFR/BSA.pred SerPlBld GAE-HDR-HbSFdo 39.0 Below low normal 11/10/2024 59 - HHCCT Phosphate SerPl-mCnc 5.2 mg/dL Above high normal 11/10/2024 2.7 - 4.5 HHCCT POC Glucose 143.0 mg/dL Above high normal 11/10/2024 65 - 99 HHCCT POC Glucose 134.0 mg/dL Above high normal 11/10/2024 65 - 99 HHCCT POC Glucose 126.0 mg/dL Above high normal 11/10/2024 65 - 99 HHCCT Anion Gap Bld-sCnc 11.0 Normal 11/10/2024 7 - 17 HHCCT GFR/BSA.pred SerPlBld ARJ-RJR-CuYDwu 37.0 Below low normal 11/10/2024 59 - HHCCT Sodium SerPl-sCnc 135.0 mmol/L Below low normal 11/10/2024 1 36 - 145 HHCCT Creat SerPl-mCnc 2.0 mg/dL Above high normal 11/10/2024 0.5 - 1.3 HHCCT Calcium SerPl-mCnc 8.2 mg/dL Below low normal 11/10/2024 8.7 - 10.5 HHCCT Glucose SerPl-mCnc 122.0 mg/dL Above high normal 11/10/2024 65 - 99 HHCCT BUN/Creat SerPl 28.0 Ratio Above high normal 11/10/2024 10 - 25 HHCCT Potassium SerPl-sCnc 3.8 mmol/L Normal 11/10/2024 3.4 - 5.3 HHCCT Chloride SerPl-sCnc 100.0 mmol/L Normal 11/10/2024 98 - 1 07 HHCCT BUN SerPl-mCnc 56.0 mg/dL Above high normal 11/10/2024 8 - 2 1 HHCCT CO2 SerPl-sCnc 24.0 mmol/L Normal 11/10/2024 22 - 33 HH CCT Phosphate SerPl-mCnc 5.6 mg/dL Above high normal 11/10/2024 2.7 - 4.5 HHCCT Magnesium SerPl-mCnc 2.1 mg/dL Normal 11/10/2024 1.6 - 2.7 HHCCT PMV Bld Auto 9.7 fL Normal 11/10/2024 7.5 - 12.5 HHCCT WBC num Bld Auto 13.5 Thou/uL Above high normal 11/10/2024 4 - 11 HHCCT MCHC RBC Auto-mCnc 30.2 g/dL Normal 11/10/2024 30 - 36 HHCCT MCV RBC Auto 92.0 fL Normal 11/10/2024 80 - 100 HHCCT MCH RBC Qn Auto 27.6 pg Normal 11/10/2024 27 - [address] RBC num Bld Auto 2.75 Mil/uL Below low normal 11/10/2024 4.5 - 6.2 HHCCT Platelet num Bld Auto 445.0 Thou/uL Normal 11/10/2024 150 - 450 HHCCT Hgb Bld-mCnc 7.6 g/dL Below low normal 11/10/2024 13 - 17.7 HHCCT Hct VFr Bld Auto 25.2 % Below low normal 11/10/2024 39 - 54 HHCCT RDW RBC Auto-Rto 17.2 % Above high normal 11/10/2024 11.5 - 14.5 HHCCT POC Glucose 152.0 mg/dL Above high normal 11/10/2024 65 - 99 HHCCT POC Glucose 222.0 mg/dL Above high normal 11/10/2024 65 - 99 HHCCT POC Glucose 146.0 mg/dL Above high normal 11/09/2024 65 - 99 HHCCT pro BNP, N-terminal 4654.0 pg/mL Above high normal 5 - 125 HHCCT Procalcitonin SerPl EIA-mCnc 0.4 ng/mL Above high normal 11/09/2024 - 0.09 HHCCT POC Glucose 153.0 mg/dL Above high normal 11/09/2024 65 - 99 HHCCT Magnesium SerPl-mCnc 2.3 mg/dL Normal 11/09/2024 1.6 - 2.7 HHCCT Creat SerPl-mCnc 1.8 mg/dL Above high normal 11/09/2024 0.5 - 1.3 HHCCT CO2 SerPl-sCnc 25.0 mmol/L Normal 11/09/2024 22 - 33 HH CCT BUN/Creat SerPl 26.0 Ratio Above high normal 11/09/2024 10 - 25 HHCCT Sodium SerPl-sCnc 139.0 mmol/L Normal 11/09/2024 136 - 14 5 HHCCT Potassium SerPl-sCnc 3.6 mmol/L Normal 11/09/2024 3.4 - 5.3 HHCCT Glucose SerPl-mCnc 117.0 mg/dL Above high normal 11/09/2024 65 - 99 HHCCT BUN SerPl-mCnc 46.0 mg/dL Above high normal 11/09/2024 8 - 2 1 HHCCT Anion Gap Bld-sCnc 13.0 Normal 11/09/2024 7 - 17 HHCCT Calcium SerPl-mCnc 8.2 mg/dL Below low normal 11/09/2024 8.7 - 10.5 HHCCT Chloride SerPl-sCnc 101.0 mmol/L Normal 11/09/2024 98 - 1 07 HHCCT GFR/BSA.pred SerPlBld [id number] 42.0 Below low normal 11/09/2024 59 - HHCCT Phosphate SerPl-mCnc 5.2 mg/dL Above high normal 11/09/2024 2.7 - 4.5 HHCCT MCV RBC Auto 92.0 fL Normal 11/09/2024 80 - 100 HHCCT Platelet num Bld Auto 405.0 Thou/uL Normal 11/09/2024 150 - 450 HHCCT MCHC RBC Auto-mCnc 30.9 g/dL Normal 11/09/2024 30 - 36 HHCCT RDW RBC Auto-Rto 17.1 % Above high normal 11/09/2024 11.5 - 14.5 HHCCT Hgb Bld-mCnc 7.7 g/dL Below low normal 11/09/2024 13 - 17.7 HHCCT WBC num Bld Auto 11.9 Thou/uL Above high normal 11/09/2024 4 - 11 HHCCT MCH RBC Qn Auto 28.3 pg Normal 11/09/2024 27 - [address] Hct VFr Bld Auto 24.9 % Below low normal 11/09/2024 39 - 54 HHCCT RBC num Bld Auto 2.72 Mil/uL Below low normal 11/09/2024 4.5 - 6.2 HHCCT PMV Bld Auto 9.6 fL Normal 11/09/2024 7.5 - 12.5 HHCCT POC Glucose 124.0 mg/dL Above high normal 11/09/2024 65 - 99 HHCCT POC Glucose 164.0 mg/dL Above high normal 11/09/2024 65 - 99 HHCCT POC Glucose 212.0 mg/dL Above high normal 11/09/2024 65 - 99 HHCCT Magnesium SerPl-mCnc 1.9 mg/dL Normal 11/09/2024 1.6 - 2.7 HHCCT Chloride SerPl-sCnc 102.0 mmol/L Normal 11/09/2024 98 - 1 07 HHCCT Sodium SerPl-sCnc 141.0 mmol/L Normal 11/09/2024 136 - 14 5 HHCCT BUN SerPl-mCnc 45.0 mg/dL Above high normal 11/09/2024 8 - 2 1 HHCCT CO2 SerPl-sCnc 26.0 mmol/L Normal 11/09/2024 22 - 33 HH CCT BUN/Creat SerPl 26.0 Ratio Above high normal 11/09/2024 10 - 25 HHCCT Glucose SerPl-mCnc 134.0 mg/dL Above high normal 11/09/2024 65 - 99 HHCCT Anion Gap Bld-sCnc 13.0 Normal 11/09/2024 7 - 17 HHCCT GFR/BSA.pred SerPlBld [id number]-ZiMBwe 45.0 Below low normal 11/09/2024 59 - HHCCT Creat SerPl-mCnc 1.7 mg/dL Above high normal 11/09/2024 0.5 - 1.3 HHCCT Calcium SerPl-mCnc 8.6 mg/dL Below low normal 11/09/2024 8.7 - 10.5 HHCCT Potassium SerPl-sCnc 3.3 mmol/L Below low normal 11/09/2024 3.4 - 5.3 HHCCT Phosphate SerPl-mCnc 4.9 mg/dL Above high normal 11/09/2024 2.7 - 4.5 HHCCT pH BldV 7.35 Normal 11/08/2024 7.33 - 7.43 HHCCT pO2 BldV 45.0 mmHG Normal 11/08/2024 0 - 60 HHCCT pCO2 BldV 49.0 mmHG Normal 11/08/2024 35 - 50 HHCCT CO2 BldV-sCnc 28.0 mmol/L Normal 11/08/2024 23 - [address] Base excess BldA Calc-sCnc 0.9 mmol/L Normal 11/08/2024 HHCCT Respiratory Information NASAL 6 L/MIN Normal 11/08/2024 HHCCT POC Glucose 170.0 mg/dL Above high normal 11/09/2024 65 - 99 HHCCT POC Glucose 162.0 mg/dL Above high normal 11/08/2024 65 - 99 HHCCT POC Glucose 198.0 mg/dL Above high normal 11/08/2024 65 - 99 HHCCT POC Glucose 209.0 mg/dL Above high normal 11/08/2024 65 - 99 HHCCT Glucose SerPl-mCnc 231.0 mg/dL Above high normal 11/08/2024 65 - 99 HHCCT Potassium SerPl-sCnc 3.8 mmol/L Normal 11/08/2024 3.4 - 5.3 HHCCT Chloride SerPl-sCnc 98.0 mmol/L Normal 11/08/2024 98 - 10 7 HHCCT Calcium SerPl-mCnc 7.9 mg/dL Below low normal 11/08/2024 8.7 - 10.5 HHCCT GFR/BSA.pred SerPlBld ZWL-RIP-BlFOud 48.0 Below low normal 11/08/2024 59 - HHCCT CO2 SerPl-sCnc 21.0 mmol/L Below low normal 11/08/2024 22 - 33 HHCCT Creat SerPl-mCnc 1.6 mg/dL Above high normal 11/08/2024 0.5 - 1.3 HHCCT Anion Gap Bld-sCnc 14.0 Normal 11/08/2024 7 - 17 HHCCT BUN SerPl-mCnc 48.0 mg/dL Above high normal 11/08/2024 8 - 2 1 HHCCT Sodium SerPl-sCnc 133.0 mmol/L Below low normal 11/08/2024 1 36 - 145 HHCCT BUN/Creat SerPl 30.0 Ratio Above high normal 11/08/2024 10 - 25 HHCCT Delta NO CHANGE Normal 11/08/2024 - 3 HHCCT Troponin T SerPl-mCnc 26.0 ng/L Above high normal 11/08/2024 - 23 HHCCT Magnesium SerPl-mCnc 2.0 mg/dL Normal 11/08/2024 1.6 - 2.7 HHCCT Phosphate SerPl-mCnc 5.2 mg/dL Above high normal 11/08/2024 2.7 - 4.5 HHCCT Prot SerPl-mCnc 5.5 g/dL Below low normal 11/08/2024 6.3 - 8.3 HHCCT Albumin/Glob SerPl 0.7 Ratio Below low normal 11/08/2024 1 - 3 HHCCT Albumin SerPl-mCnc 2.3 g/dL Below low normal 11/08/2024 3.4 - 4.8 HHCCT Globulin Ser Calc-mCnc 3.2 g/dL Normal 11/08/2024 1.5 - 3.9 HHCCT ALP SerPl-cCnc 226.0 U/L Above high normal 11/08/2024 45 - 1 28 HHCCT AST SerPl-cCnc 24.0 U/L Normal 11/08/2024 10 - 55 HHCC T ALT SerPl-cCnc 24.0 U/L Normal 11/08/2024 10 - 55 HHCC T Bilirub Direct SerPl-mCnc 0.1 mg/dL Normal 11/08/2024 0 - 0.2 HHCCT Bilirub SerPl-mCnc <0.2 mg/dL Below low normal 11/08/2024 0. 2 - 1 HHCCT CK SerPl-cCnc 91.0 U/L Normal 11/08/2024 24 - 204 HHCCT pro BNP, N-terminal 4241.0 pg/mL Above high normal 5 - 125 HHCCT RBC num Bld Auto 2.83 Mil/uL Below low normal 11/08/2024 4.5 - 6.2 HHCCT MCHC RBC Auto-mCnc 30.9 g/dL Normal 11/08/2024 30 - 36 HHCCT RDW RBC Auto-Rto 16.9 % Above high normal 11/08/2024 11.5 - 14.5 HHCCT PMV Bld Auto 9.3 fL Normal 11/08/2024 7.5 - 12.5 HHCCT MCH RBC Qn Auto 27.9 pg Normal 11/08/2024 27 - [address] Hgb Bld-mCnc 7.9 g/dL Below low normal 11/08/2024 13 - 17.7 HHCCT Hct VFr Bld Auto 25.6 % Below low normal 11/08/2024 39 - 54 HHCCT WBC num Bld Auto 13.1 Thou/uL Above high normal 11/08/2024 4 - 11 HHCCT MCV RBC Auto 91.0 fL Normal 11/08/2024 80 - 100 HHCCT Platelet num Bld Auto 378.0 Thou/uL Normal 11/08/2024 150 - 450 CCT POC Glucose 261.0 mg/dL Above high normal 11/08/2024 65 - 99 [facility] RV+EV RNA Nph Ql Non-probe PCR Not Detected Normal 11/08/2024 [facility] HCoV HKU1 RNA Nph Ql Non-probe PCR Not Detected Normal 11/08/2024 [facility] FLUBV RNA Nph Ql Non-probe PCR Not Detected Normal 11/08/2024 [facility] HPIV4 RNA Nph Ql Non-probe PCR Not Detected Normal 11/08/2024 [facility] HCoV NL63 RNA Nph Ql Non-probe PCR Not Detected Normal 11/08/2024 [facility] HPIV3 RNA Nph Ql Non-probe PCR Not Detected Normal 11/08/2024 [facility] B pert tox prom reg Nph Ql Non-probe PCR Not Detected Normal 11/08/2024 [facility] HPIV1 RNA Nph Ql Non-probe PCR Not Detected Normal 11/08/2024 [facility] HAdV DNA Nph Ql Non-probe PCR Not Detected Normal 11/08/2024 [facility] HCoV 229E RNA Nph Ql Non-probe PCR Not Detected Normal 11/08/2024 [facility] C pneum DNA Nph Ql Non-probe PCR Not Detected Normal 11/08/2024 HHCCT Bordetella parapertussis Not Detected Normal 11/08/2024 HHCCT M pneumo DNA Nph Ql Non-probe PCR Not Detected Normal 11/08/2024 HHCCT HCoV OC43 RNA Nph Ql Non-probe PCR Not Detected Normal 11/08/2024 HHCCT 2019-nCOV RNA Not Detected Normal 11/08/2024 [facility] hMPV RNA Nph Ql Non-probe PCR Not Detected Normal 11/08/2024 HHCCT HPIV2 RNA Nph Ql Non-probe PCR Not Detected Normal 11/08/2024 HHCCT RSV RNA Nph Ql Non-probe PCR Not Detected Normal 11/08/2024 HHCCT FLUAV RNA Nph Ql Non-probe PCR Not Detected Normal 11/08/2024 HHCCT GFR/BSA.pred SerPlBld [id number]-FuGVsr 48.0 Below low normal 11/07/2024 59 - HHCCT Chloride SerPl-sCnc 98.0 mmol/L Normal 11/07/2024 98 - 10 7 HHCCT Anion Gap Bld-sCnc 12.0 Normal 11/07/2024 7 - 17 HHCCT CO2 SerPl-sCnc 21.0 mmol/L Below low normal 11/07/2024 22 - 33 HHCCT Creat SerPl-mCnc 1.6 mg/dL Above high normal 11/07/2024 0.5 - 1.3 HHCCT BUN/Creat SerPl 29.0 Ratio Above high normal 11/07/2024 10 - 25 HHCCT BUN SerPl-mCnc 47.0 mg/dL Above high normal 11/07/2024 8 - 2 1 HHCCT Sodium SerPl-sCnc 131.0 mmol/L Below low normal 11/07/2024 1 36 - 145 HHCCT Potassium SerPl-sCnc 3.7 mmol/L Normal 11/07/2024 3.4 - 5.3 HHCCT Glucose SerPl-mCnc 183.0 mg/dL Above high normal 11/07/2024 65 - 99 HHCCT Calcium SerPl-mCnc 8.1 mg/dL Below low normal 11/07/2024 8.7 - 10.5 HHCCT Phosphate SerPl-mCnc 4.7 mg/dL Above high normal 11/07/2024 2.7 - 4.5 HHCCT Magnesium SerPl-mCnc 2.2 mg/dL Normal 11/07/2024 1.6 - 2.7 HHCCT Delta 3.0 Above high normal 11/07/2024 - 3 H HCCT Troponin T SerPl-mCnc 29.0 ng/L Above high normal 11/07/2024 - 23 HHCCT POC Glucose 179.0 mg/dL Above high normal 11/07/2024 65 - 99 HHCCT Base deficit BldA-sCnc 3.5 mmol/L Normal 11/07/2024 HHCCT pH, Arterial 7.38 Normal 11/07/2024 7.35 - 7.45 HH[facility] T pCO2, Arterial 36.0 mmHG Normal 11/07/2024 32 - 45 [facility] T Total CO2, Arterial 22.0 mmol/L Normal 11/07/2024 22 - 28 HHCCT pO2, Arterial 119.0 mmHG Above high normal 11/07/2024 75 - 9 5 HHCCT Respiratory Information OTHER Normal 11/07/2024 HHCCT POC Glucose 213.0 mg/dL Above high normal 11/07/2024 65 - 99 HHCCT Delta NO PREVIOUS RESULT Normal 11/07/2024 - 3 HHCCT Troponin T SerPl-mCnc 26.0 ng/L Above high normal 11/07/2024 - 23 HHCCT pro BNP, N-terminal 3427.0 pg/mL Above high normal 5 - 125 HHCCT Phosphate SerPl-mCnc 4.3 mg/dL Normal 11/07/2024 2.7 - 4.5 HHCCT Magnesium SerPl-mCnc 2.3 mg/dL Normal 11/07/2024 1.6 - 2.7 HHCCT CO2 SerPl-sCnc 22.0 mmol/L Normal 11/07/2024 22 - 33 HH CCT BUN/Creat SerPl 31.0 Ratio Above high normal 11/07/2024 10 - 25 HHCCT ALT SerPl-cCnc 29.0 U/L Normal 11/07/2024 10 - 55 [facility] T Creat SerPl-mCnc 1.5 mg/dL Above high normal 11/07/2024 0.5 - 1.3 HHCCT Prot SerPl-mCnc 6.1 g/dL Below low normal 11/07/2024 6.3 - 8.3 HHCCT Potassium SerPl-sCnc 3.9 mmol/L Normal 11/07/2024 3.4 - 5.3 HHCCT ALP SerPl-cCnc 220.0 U/L Above high normal 11/07/2024 45 - 1 28 HHCCT Chloride SerPl-sCnc 94.0 mmol/L Below low normal 11/07/2024 98 - 107 HHCCT Albumin/Glob SerPl 0.7 Ratio Below low normal 11/07/2024 1 - 3 HHCCT GFR/BSA.pred SerPlBld [id number] 52.0 Below low normal 11/07/2024 59 - HHCCT Glucose SerPl-mCnc 188.0 mg/dL Above high normal 11/07/2024 65 - 99 HHCCT Albumin SerPl-mCnc 2.6 g/dL Below low normal 11/07/2024 3.4 - 4.8 HHCCT Sodium SerPl-sCnc 129.0 mmol/L Below low normal 11/07/2024 1 36 - 145 HHCCT BUN SerPl-mCnc 47.0 mg/dL Above high normal 11/07/2024 8 - 2 1 HHCCT Anion Gap Bld-sCnc 13.0 Normal 11/07/2024 7 - 17 HHCCT Bilirub SerPl-mCnc 0.2 mg/dL Normal 11/07/2024 0.2 - 1 HHCCT AST SerPl-cCnc 28.0 U/L Normal 11/07/2024 10 - 55 [facility] T Globulin Ser Calc-mCnc 3.5 g/dL Normal 11/07/2024 1.5 - 3.9 HHCCT Calcium SerPl-mCnc 8.3 mg/dL Below low normal 11/07/2024 8.7 - 10.5 HHCCT MCV RBC Auto 92.0 fL Normal 11/07/2024 80 - 100 HHCCT nRBC/100 WBC Bld Auto-Rto 0.2 /100 WBC Above high normal 11/07/2024 0 - 0.1 HHCCT WBC num Bld Auto 12.4 Thou/uL Above high normal 11/07/2024 4 - 11 HHCCT MCHC RBC Auto-mCnc 30.8 g/dL Normal 11/07/2024 30 - 36 HHCCT RDW RBC Auto-Rto 16.7 % Above high normal 11/07/2024 11.5 - 14.5 HHCCT PMV Bld Auto 9.6 fL Normal 11/07/2024 7.5 - 12.5 HHCCT Platelet num Bld Auto 430.0 Thou/uL Normal 11/07/2024 150 - 450 HHCCT RBC num Bld Auto 3.16 Mil/uL Below low normal 11/07/2024 4.5 - 6.2 HHCCT nRBC num Bld Auto 0.03 Thou/uL Above high normal 11/07/2024 0 - 0.02 HHCCT MCH RBC Qn Auto 28.2 pg Normal 11/07/2024 27 - [address] Hct VFr Bld Auto 28.9 % Below low normal 11/07/2024 39 - 54 HHCCT Hgb Bld-mCnc 8.9 g/dL Below low normal 11/07/2024 13 - 17.7 HHCCT POC Glucose 191.0 mg/dL Above high normal 11/07/2024 65 - 99 HHCCT POC Glucose 231.0 mg/dL Above high normal 11/07/2024 65 - 99 HHCCT POC Glucose 277.0 mg/dL Above high normal 11/07/2024 65 - 99 HHCCT POC Glucose 193.0 mg/dL Above high normal 11/06/2024 65 - 99 HHCCT POC Glucose 217.0 mg/dL Above high normal 11/06/2024 65 - 99 HHCCT POC Glucose 229.0 mg/dL Above high normal 11/06/2024 65 - 99 HHCCT POC Glucose 210.0 mg/dL Above high normal 11/06/2024 65 - 99 HHCCT Globulin Ser Calc-mCnc 3.3 g/dL Normal 11/06/2024 1.5 - 3.9 HHCCT Glucose SerPl-mCnc 194.0 mg/dL Above high normal 11/06/2024 65 - 99 HHCCT Calcium SerPl-mCnc 7.8 mg/dL Below low normal 11/06/2024 8.7 - 10.5 HHCCT GFR/BSA.pred SerPlBld [id number] 45.0 Below low normal 11/06/2024 59 - HHCCT Albumin SerPl-mCnc 2.4 g/dL Below low normal 11/06/2024 3.4 - 4.8 HHCCT Albumin/Glob SerPl 0.7 Ratio Below low normal 11/06/2024 1 - 3 HHCCT ALT SerPl-cCnc 31.0 U/L Normal 11/06/2024 10 - 55 [facility] T ALP SerPl-cCnc 270.0 U/L Above high normal 11/06/2024 45 - 1 28 HHCCT AST SerPl-cCnc 50.0 U/L Normal 11/06/2024 10 - 55 [facility] T Potassium SerPl-sCnc 3.8 mmol/L Normal 11/06/2024 3.4 - 5.3 HHCCT Anion Gap Bld-sCnc 12.0 Normal 11/06/2024 7 - 17 HHCCT BUN/Creat SerPl 28.0 Ratio Above high normal 11/06/2024 10 - 25 [facility] Chloride SerPl-sCnc 99.0 mmol/L Normal 11/06/2024 98 - 10 7 HHCCT Bilirub SerPl-mCnc 0.2 mg/dL Normal 11/06/2024 0.2 - 1 HHCCT Prot SerPl-mCnc 5.7 g/dL Below low normal 11/06/2024 6.3 - 8.3 HHCCT CO2 SerPl-sCnc 20.0 mmol/L Below low normal 11/06/2024 22 - 33 H[facility]CT Creat SerPl-mCnc 1.7 mg/dL Above high normal 11/06/2024 0.5 - 1.3 HHCCT BUN SerPl-mCnc 48.0 mg/dL Above high normal 11/06/2024 8 - 2 1 HHCCT Sodium SerPl-sCnc 131.0 mmol/L Below low normal 11/06/2024 1 36 - 145 HHCCT Magnesium SerPl-mCnc 2.5 mg/dL Normal 11/06/2024 1.6 - 2.7 HHCCT Phosphate SerPl-mCnc 5.1 mg/dL Above high normal 11/06/2024 2.7 - 4.5 HHCCT Neutrophils num Bld Auto 10.57 Thou/uL Above high normal 11/06/2024 2 - 7.5 HHCCT Hgb Bld-mCnc 8.7 g/dL Below low normal 11/06/2024 13 - 17.7 HHCCT Eosinophil/leuk NFr Bld Auto 0.0 % Normal 11/06/2024 HHCCT Lymphocytes/leuk NFr Bld Auto 3.4 % Normal 11/06/2024 HHCCT Lymphocytes num Bld Auto 0.41 Thou/uL Below low normal 11/06/2024 1.5 - 4.5 HHCCT MCHC RBC Auto-mCnc 31.2 g/dL Normal 11/06/2024 30 - 36 HHCCT Imm Granulocytes num Bld Auto 0.13 Thou/uL Above high normal 11/06/2024 0 - 0.1 HHCCT MCH RBC Qn Auto 28.5 pg Normal 11/06/2024 27 - [address] Hct VFr Bld Auto 27.9 % Below low normal 11/06/2024 39 - 54 H[facility]CT Platelet num Bld Auto 346.0 Thou/uL Normal 11/06/2024 150 - 450 HHCCT RDW RBC Auto-Rto 16.4 % Above high normal 11/06/2024 11.5 - 14.5 HHCCT RBC num Bld Auto 3.05 Mil/uL Below low normal 11/06/2024 4.5 - 6.2 HHCCT Neutrophils/leuk NFr Bld Auto 88.8 % Normal 11/06/2024 HHCCT Basophils num Bld Auto 0.01 Thou/uL Normal 11/06/2024 0 - 0.2 HHCCT Eosinophil num Bld Auto 0.0 Thou/uL Normal 11/06/2024 0 - 0.7 HHCCT Imm Granulocytes/leuk NFr Bld Auto 1.1 % Normal 11/06/2024 HHCCT Monocytes num Bld Auto 0.79 Thou/uL Normal 11/06/2024 0.2 - 1.5 HHCCT Basophils/leuk NFr Bld Auto 0.1 % Normal 11/06/2024 HHCCT WBC num Bld Auto 11.9 Thou/uL Above high normal 11/06/2024 4 - 11 H[facility]CT Monocytes/leuk NFr Bld Auto 6.6 % Normal 11/06/2024 HHCCT MCV RBC Auto 92.0 fL Normal 11/06/2024 80 - 100 HHCCT PMV Bld Auto 9.5 fL Normal 11/06/2024 7.5 - 12.5 HHCCT POC Glucose 229.0 mg/dL Above high normal 11/06/2024 65 - 99 HHCCT POC Glucose 251.0 mg/dL Above high normal 11/06/2024 65 - 99 HHCCT POC Glucose 138.0 mg/dL Above high normal 11/05/2024 65 - 99 HHCCT POC Glucose 138.0 mg/dL Above high normal 11/05/2024 65 - 99 HHCCT POC Glucose 128.0 mg/dL Above high normal 11/05/2024 65 - 99 HHCCT Bilirub SerPl-mCnc 0.3 mg/dL Normal 11/05/2024 0.2 - 1 HHCCT AST SerPl-cCnc 26.0 U/L Normal 11/05/2024 10 - 55 [facility] T ALP SerPl-cCnc 153.0 U/L Above high normal 11/05/2024 45 - 1 28 HHCCT Albumin SerPl-mCnc 2.5 g/dL Below low normal 11/05/2024 3.4 - 4.8 HHCCT Albumin/Glob SerPl 0.7 Ratio Below low normal 11/05/2024 1 - 3 HHCCT ALT SerPl-cCnc 23.0 U/L Normal 11/05/2024 10 - 55 [facility] T Bilirub Direct SerPl-mCnc 0.2 mg/dL Normal 11/05/2024 0 - 0.2 HHCCT Prot SerPl-mCnc 5.9 g/dL Below low normal 11/05/2024 6.3 - 8.3 HHCCT Globulin Ser Calc-mCnc 3.4 g/dL Normal 11/05/2024 1.5 - 3.9 HHCCT CK SerPl-cCnc 49.0 U/L Normal 11/05/2024 24 - 204 HHCCT Calcium SerPl-mCnc 7.9 mg/dL Below low normal 11/05/2024 8.7 - 10.5 HHCCT Glucose SerPl-mCnc 146.0 mg/dL Above high normal 11/05/2024 65 - 99 HHCCT Creat SerPl-mCnc 2.0 mg/dL Above high normal 11/05/2024 0.5 - 1.3 HHCCT Sodium SerPl-sCnc 130.0 mmol/L Below low normal 11/05/2024 1 36 - 145 HHCCT Chloride SerPl-sCnc 96.0 mmol/L Below low normal 11/05/2024 98 - 107 HHCCT CO2 SerPl-sCnc 19.0 mmol/L Below low normal 11/05/2024 22 - 33 HHCCT BUN/Creat SerPl 24.0 Ratio Normal 11/05/2024 10 - 25 HH CCT BUN SerPl-mCnc 47.0 mg/dL Above high normal 11/05/2024 8 - 2 1 HHCCT GFR/BSA.pred SerPlBld [id number] 37.0 Below low normal 11/05/2024 59 - HHCCT Potassium SerPl-sCnc 3.4 mmol/L Normal 11/05/2024 3.4 - 5.3 HHCCT Anion Gap Bld-sCnc 15.0 Normal 11/05/2024 7 - 17 HHCCT Prothrombin time 15.3 seconds Above high normal 11/05/2024 1 0 - 13.5 HHCCT INR PPP 1.3 Normal 11/05/2024 HHCCT Anticoagulant Information not given Normal 11/05/2024 [facility]CT MCHC RBC Auto-mCnc 32.2 g/dL Normal 11/05/2024 30 - 36 HHCCT Hct VFr Bld Auto 28.3 % Below low normal 11/05/2024 39 - 54 HHCCT MCH RBC Qn Auto 29.2 pg Normal 11/05/2024 27 - [address] RBC num Bld Auto 3.12 Mil/uL Below low normal 11/05/2024 4.5 - 6.2 HHCCT PMV Bld Auto 9.8 fL Normal 11/05/2024 7.5 - 12.5 HHCCT Platelet num Bld Auto 353.0 Thou/uL Normal 11/05/2024 150 - 450 HHCCT RDW RBC Auto-Rto 16.8 % Above high normal 11/05/2024 11.5 - 14.5 HHCCT WBC num Bld Auto 15.9 Thou/uL Above high normal 11/05/2024 4 - 11 HHCCT Hgb Bld-mCnc 9.1 g/dL Below low normal 11/05/2024 13 - 17.7 HHCCT MCV RBC Auto 91.0 fL Normal 11/05/2024 80 - 100 HHCCT POC Glucose 166.0 mg/dL Above high normal 11/05/2024 65 - 99 HHCCT POC Glucose 176.0 mg/dL Above high normal 11/05/2024 65 - 99 HHCCT POC Glucose 258.0 mg/dL Above high normal 11/05/2024 65 - 99 HHCCT POC Glucose 172.0 mg/dL Above high normal 11/04/2024 65 - 99 HHCCT POC Glucose 167.0 mg/dL Above high normal 11/04/2024 65 - 99 HHCCT PMV Bld Auto 9.4 fL Normal 11/04/2024 7.5 - 12.5 HHCCT MCH RBC Qn Auto 28.5 pg Normal 11/04/2024 27 - [address] RDW RBC Auto-Rto 16.6 % Above high normal 11/04/2024 11.5 - 14.5 HHCCT MCV RBC Auto 92.0 fL Normal 11/04/2024 80 - 100 HHCCT Platelet num Bld Auto 326.0 Thou/uL Normal 11/04/2024 150 - 450 HHCCT RBC num Bld Auto 3.05 Mil/uL Below low normal 11/04/2024 4.5 - 6.2 HHCCT Hgb Bld-mCnc 8.7 g/dL Below low normal 11/04/2024 13 - 17.7 HHCCT MCHC RBC Auto-mCnc 31.1 g/dL Normal 11/04/2024 30 - 36 HHCCT Hct VFr Bld Auto 28.0 % Below low normal 11/04/2024 39 - 54 HHCCT WBC num Bld Auto 13.4 Thou/uL Above high normal 11/04/2024 4 - 11 HHCCT Glucose SerPl-mCnc 184.0 mg/dL Above high normal 11/04/2024 65 - 99 HHCCT Chloride SerPl-sCnc 95.0 mmol/L Below low normal 11/04/2024 98 - 107 HHCCT Potassium SerPl-sCnc 3.7 mmol/L Normal 11/04/2024 3.4 - 5.3 HHCCT Calcium SerPl-mCnc 7.7 mg/dL Below low normal 11/04/2024 8.7 - 10.5 HHCCT BUN/Creat SerPl 24.0 Ratio Normal 11/04/2024 10 - 25 HH CCT BUN SerPl-mCnc 48.0 mg/dL Above high normal 11/04/2024 8 - 2 1 HHCCT Sodium SerPl-sCnc 130.0 mmol/L Below low normal 11/04/2024 1 36 - 145 HHCCT GFR/BSA.pred SerPlBld [id number]-[id number] 37.0 Below low normal 11/04/2024 59 - HHCCT Anion Gap Bld-sCnc 14.0 Normal 11/04/2024 7 - 17 HHCCT Creat SerPl-mCnc 2.0 mg/dL Above high normal 11/04/2024 0.5 - 1.3 HHCCT CO2 SerPl-sCnc 21.0 mmol/L Below low normal 11/04/2024 22 - 33 HHCCT POC Glucose 141.0 mg/dL Above high normal 11/04/2024 65 - 99 HHCCT POC Glucose 229.0 mg/dL Above high normal 11/04/2024 65 - 99 HHCCT POC Glucose 158.0 mg/dL Above high normal 11/03/2024 65 - 99 HHCCT POC Glucose 153.0 mg/dL Above high normal 11/03/2024 65 - 99 HHCCT CK SerPl-cCnc 61.0 U/L Normal 11/03/2024 24 - 204 HHCCT POC Glucose 165.0 mg/dL Above high normal 11/03/2024 65 - 99 HHCCT Result Not Detected Normal 11/03/2024 - HHCCT POC Glucose 163.0 mg/dL Above high normal 11/03/2024 65 - 99 HHCCT Anion Gap Bld-sCnc 19.0 Above high normal 11/03/2024 7 - 17 HHCCT CO2 SerPl-sCnc 19.0 mmol/L Below low normal 11/03/2024 22 - 33 HHCCT Sodium SerPl-sCnc 130.0 mmol/L Below low normal 11/03/2024 1 36 - 145 HHCCT Calcium SerPl-mCnc 8.5 mg/dL Below low normal 11/03/2024 8.7 - 10.5 HHCCT BUN SerPl-mCnc 41.0 mg/dL Above high normal 11/03/2024 8 - 2 1 HHCCT GFR/BSA.pred SerPlBld [id number]-MkTPeb 37.0 Below low normal 11/03/2024 59 - HHCCT Glucose SerPl-mCnc 171.0 mg/dL Above high normal 11/03/2024 65 - 99 HHCCT Chloride SerPl-sCnc 92.0 mmol/L Below low normal 11/03/2024 98 - 107 HHCCT BUN/Creat SerPl 21.0 Ratio Normal 11/03/2024 10 - 25 HH CCT Potassium SerPl-sCnc 4.0 mmol/L Normal 11/03/2024 3.4 - 5.3 HHCCT Creat SerPl-mCnc 2.0 mg/dL Above high normal 11/03/2024 0.5 - 1.3 HHCCT Transferrin SerPl-mCnc 178.0 mg/dL Below low normal 11/03/2024 200 - 360 HHCCT Albumin SerPl-mCnc 3.2 g/dL Below low normal 11/03/2024 3.4 - 4.8 HHCCT Prealb SerPl-mCnc 7.0 mg/dL Below low normal 11/03/2024 20 - 40 HHCCT CRP SerPl-mCnc 29.62 mg/dL Above high normal 11/03/2024 0 - 0.49 HHCCT 25(OH)D3 SerPl-mCnc 50.0 ng/mL Normal 11/03/2024 30 - 100 HHCCT Prothrombin time 14.7 seconds Above high normal 11/03/2024 1 0 - 13.5 HHCCT INR PPP 1.3 Normal 11/03/2024 HHCCT Anticoagulant APIXABAN (ELIQUIS) Normal 11/02/2024 HHCCT ESR Bld Qn 79.0 MM/HR Above high normal 11/03/2024 - 20 HHCCT Hct VFr Bld Auto 29.3 % Below low normal 11/03/2024 39 - 54 HHCCT RBC num Bld Auto 3.2 Mil/uL Below low normal 11/03/2024 4.5 - 6.2 HHCCT Hgb Bld-mCnc 9.3 g/dL Below low normal 11/03/2024 13 - 17.7 HHCCT Lymphocytes/leuk NFr Bld Auto 4.8 % Normal 11/03/2024 HHCCT Imm Granulocytes/leuk NFr Bld Auto 0.6 % Normal 11/03/2024 HHCCT Basophils/leuk NFr Bld Auto 0.4 % Normal 11/03/2024 HHCCT MCV RBC Auto 92.0 fL Normal 11/03/2024 80 - 100 HHCCT PMV Bld Auto 9.5 fL Normal 11/03/2024 7.5 - 12.5 HHCCT Lymphocytes num Bld Auto 0.69 Thou/uL Below low normal 11/03/2024 1.5 - 4.5 HHCCT WBC num Bld Auto 14.3 Thou/uL Above high normal 11/03/2024 4 - 11 HHCCT MCHC RBC Auto-mCnc 31.7 g/dL Normal 11/03/2024 30 - 36 HHCCT Platelet num Bld Auto 395.0 Thou/uL Normal 11/03/2024 150 - 450 HHCCT Monocytes/leuk NFr Bld Auto 12.2 % Normal 11/03/2024 HHCCT Imm Granulocytes num Bld Auto 0.08 Thou/uL Normal 11/03/2024 0 - 0.1 HHCCT Basophils num Bld Auto 0.05 Thou/uL Normal 11/03/2024 0 - 0.2 HHCCT MCH RBC Qn Auto 29.1 pg Normal 11/03/2024 27 - [address] Neutrophils/leuk NFr Bld Auto 81.9 % Normal 11/03/2024 HHCCT RDW RBC Auto-Rto 16.1 % Above high normal 11/03/2024 11.5 - 14.5 HHCCT Neutrophils num Bld Auto 11.67 Thou/uL Above high normal 11/03/2024 2 - 7.5 HHCCT Eosinophil/leuk NFr Bld Auto 0.1 % Normal 11/03/2024 HHCCT Eosinophil num Bld Auto 0.02 Thou/uL Normal 11/03/2024 0 - 0.7 HHCCT Monocytes num Bld Auto 1.74 Thou/uL Above high normal 11/03/2024 0.2 - 1.5 HHCCT POC Glucose 192.0 mg/dL Above high normal 11/02/2024 65 - 99 HHCCT POC Glucose 188.0 mg/dL Above high normal 09/16/2024 65 - 99 HHCCT Magnesium SerPl-mCnc 2.1 mg/dL Normal 09/16/2024 1.6 - 2.7 HHCCT Anion Gap Bld-sCnc 12.0 Normal 09/16/2024 7 - 17 HHCCT BUN SerPl-mCnc 26.0 mg/dL Above high normal 09/16/2024 8 - 2 1 HHCCT BUN/Creat SerPl 20.0 Ratio Normal 09/16/2024 10 - 25 HH CCT Calcium SerPl-mCnc 8.7 mg/dL Normal 09/16/2024 8.7 - 10.5 HHCCT Sodium SerPl-sCnc 138.0 mmol/L Normal 09/16/2024 136 - 14 5 HHCCT GFR/BSA.pred SerPlBld CEJ-HVE-PaLVsa 62.0 Normal 09/16/2024 59 - HHCCT Chloride SerPl-sCnc 103.0 mmol/L Normal 09/16/2024 98 - 1 07 HHCCT Potassium SerPl-sCnc 3.9 mmol/L Normal 09/16/2024 3.4 - 5.3 HHCCT CO2 SerPl-sCnc 23.0 mmol/L Normal 09/16/2024 22 - 33 HH CCT Creat SerPl-mCnc 1.3 mg/dL Normal 09/16/2024 0.5 - 1.3 HH CCT Glucose SerPl-mCnc 246.0 mg/dL Above high normal 09/16/2024 65 - 99 HHCCT LMWH PPP Tungsten Tender-aCnc Blood/anticoagulant ratio of specimen is unsatisfactory for testing, please repeat. Normal 09/16/2024 HHCCT Anticoagulant IV HEPARIN, UNFRACTIONATED Normal 09/16/2024 HHCCT PMV Bld Auto 10.8 fL Normal 09/16/2024 7.5 - 12.5 HHCCT Hct VFr Bld Auto 34.7 % Below low normal 09/16/2024 39 - 54 HHCCT MCHC RBC Auto-mCnc 32.6 g/dL Normal 09/16/2024 30 - 36 HHCCT RBC num Bld Auto 3.57 Mil/uL Below low normal 09/16/2024 4.5 - 6.2 HHCCT WBC num Bld Auto 7.3 Thou/uL Normal 09/16/2024 4 - 11 HHCCT Platelet num Bld Auto 204.0 Thou/uL Normal 09/16/2024 150 - 450 HHCCT MCV RBC Auto 97.0 fL Normal 09/16/2024 80 - 100 HHCCT RDW RBC Auto-Rto 14.6 % Above high normal 09/16/2024 11.5 - 14.5 HHCCT Hgb Bld-mCnc 11.3 g/dL Below low normal 09/16/2024 13 - 17.7 HHCCT MCH RBC Qn Auto 31.7 pg Above high normal 09/16/2024 27 - 31 HHCCT Lactate SerPl-sCnc 1.4 mmol/L Normal 09/16/2024 0.5 - 1.9 HHCCT POC Glucose 120.0 mg/dL Above high normal 09/16/2024 65 - 99 HHCCT POC Glucose 112.0 mg/dL Above high normal 09/16/2024 65 - 99 HHCCT LMWH PPP Tungsten Tender-aCnc 0.23 IU/mL Normal 09/16/2024 HHCCT Anticoagulant IV HEPARIN, UNFRACTIONATED Normal 09/16/2024 HHCCT POC Glucose 203.0 mg/dL Above high normal 09/16/2024 65 - 99 HHCCT POC Glucose 198.0 mg/dL Above high normal 09/15/2024 65 - 99 HHCCT POC Glucose 145.0 mg/dL Above high normal 09/15/2024 65 - 99 HHCCT POC Glucose 130.0 mg/dL Above high normal 09/15/2024 65 - 99 HHCCT LMWH PPP Tungsten Tender-aCnc 0.24 IU/mL Normal 09/15/2024 HHCCT Anticoagulant IV HEPARIN, UNFRACTIONATED Normal 09/15/2024 HHCCT BUN SerPl-mCnc 38.0 mg/dL Above high normal 09/15/2024 8 - 2 1 HHCCT CO2 SerPl-sCnc 27.0 mmol/L Normal 09/15/2024 22 - 33 HH CCT Glucose SerPl-mCnc 146.0 mg/dL Above high normal 09/15/2024 65 - 99 HHCCT Potassium SerPl-sCnc 3.6 mmol/L Normal 09/15/2024 3.4 - 5.3 HHCCT BUN/Creat SerPl 29.0 Ratio Above high normal 09/15/2024 10 - 25 HHCCT Sodium SerPl-sCnc 140.0 mmol/L Normal 09/15/2024 136 - 14 5 HHCCT GFR/BSA.pred SerPlBld [id number]-[id number] 62.0 Normal 09/15/2024 59 - HHCCT Chloride SerPl-sCnc 103.0 mmol/L Normal 09/15/2024 98 - 1 07 HHCCT Anion Gap Bld-sCnc 10.0 Normal 09/15/2024 7 - 17 HHCCT Calcium SerPl-mCnc 8.5 mg/dL Below low normal 09/15/2024 8.7 - 10.5 HHCCT Creat SerPl-mCnc 1.3 mg/dL Normal 09/15/2024 0.5 - 1.3 HH CCT Phosphate SerPl-mCnc 3.8 mg/dL Normal 09/15/2024 2.7 - 4.5 HHCCT Magnesium SerPl-mCnc 2.3 mg/dL Normal 09/15/2024 1.6 - 2.7 HHCCT LMWH PPP Tungsten Tender-aCnc Blood/anticoagulant ratio of specimen is unsatisfactory for testing, please repeat. Normal 09/15/2024 HHCCT Anticoagulant IV HEPARIN, UNFRACTIONATED Normal 09/15/2024 HHCCT Imm Granulocytes/leuk NFr Bld Auto 0.5 % Normal 09/15/2024 HHCCT MCH RBC Qn Auto 31.4 pg Above high normal 09/15/2024 27 - 31 HHCCT PMV Bld Auto 10.1 fL Normal 09/15/2024 7.5 - 12.5 HHCCT WBC num Bld Auto 7.6 Thou/uL Normal 09/15/2024 4 - 11 HHCCT Lymphocytes/leuk NFr Bld Auto 23.2 % Normal 09/15/2024 HHCCT Monocytes num Bld Auto 0.7 Thou/uL Normal 09/15/2024 0.2 - 1.5 HHCCT RDW RBC Auto-Rto 14.3 % Normal 09/15/2024 11.5 - 14.5 HHCCT Hgb Bld-mCnc 10.7 g/dL Below low normal 09/15/2024 13 - 17.7 HHCCT Eosinophil/leuk NFr Bld Auto 5.9 % Normal 09/15/2024 HHCCT Lymphocytes num Bld Auto 1.77 Thou/uL Normal 09/15/2024 1.5 - 4.5 HHCCT Neutrophils/leuk NFr Bld Auto 60.7 % Normal 09/15/2024 HHCCT MCHC RBC Auto-mCnc 32.3 g/dL Normal 09/15/2024 30 - 36 HHCCT Monocytes/leuk NFr Bld Auto 9.2 % Normal 09/15/2024 HHCCT Basophils/leuk NFr Bld Auto 0.5 % Normal 09/15/2024 HHCCT Basophils num Bld Auto 0.04 Thou/uL Normal 09/15/2024 0 - 0.2 HHCCT Eosinophil num Bld Auto 0.45 Thou/uL Normal 09/15/2024 0 - 0.7 HHCCT MCV RBC Auto 97.0 fL Normal 09/15/2024 80 - 100 HHCCT RBC num Bld Auto 3.41 Mil/uL Below low normal 09/15/2024 4.5 - 6.2 HHCCT Neutrophils num Bld Auto 4.62 Thou/uL Normal 09/15/2024 2 - 7.5 HHCCT Hct VFr Bld Auto 33.1 % Below low normal 09/15/2024 39 - 54 HHCCT Platelet num Bld Auto 205.0 Thou/uL Normal 09/15/2024 150 - 450 HHCCT Imm Granulocytes num Bld Auto 0.04 Thou/uL Normal 09/15/2024 0 - 0.1 HHCCT POC Glucose 158.0 mg/dL Above high normal 09/15/2024 65 - 99 HHCCT POC Glucose 176.0 mg/dL Above high normal 09/15/2024 65 - 99 HHCCT POC Glucose 167.0 mg/dL Above high normal 09/14/2024 65 - 99 HHCCT POC Glucose 164.0 mg/dL Above high normal 09/14/2024 65 - 99 CCT LMWH PPP Tungsten Tender-aCnc 0.32 IU/mL Normal 09/14/2024 CCT Anticoagulant IV HEPARIN, UNFRACTIONATED Normal 09/14/2024 CCT POC Glucose 117.0 mg/dL Above high normal 09/14/2024 65 - 99 CCT LMWH PPP Tungsten Tender-aCnc 0.3 IU/mL Normal 09/14/2024 [facility] Anticoagulant IV HEPARIN, UNFRACTIONATED Normal 09/14/2024 CCT POC Glucose 142.0 mg/dL Above high normal 09/14/2024 65 - 99 CCT LMWH PPP Tungsten Tender-aCnc 0.42 IU/mL Normal 09/14/2024 [facility] Anticoagulant APIXABAN (ELIQUIS) Normal 09/13/2024 [facility] POC Glucose 175.0 mg/dL Above high normal 09/13/2024 65 - 99 [facility] LMWH PPP Tungsten Tender-aCnc 0.73 IU/mL Normal 09/13/2024 [facility] Anticoagulant APIXABAN (ELIQUIS) Normal 09/13/2024 [facility] INR PPP 1.1 Normal 09/13/2024 [facility] Prothrombin time 12.5 seconds Normal 09/13/2024 10 - 13.5 HHCCT Anticoagulant IV HEPARIN, UNFRACTIONATED Normal 09/13/2024 [facility] aPTT PPP 35.0 seconds Normal 09/13/2024 25 - 36 HHCCT Anticoagulant IV HEPARIN, UNFRACTIONATED Normal 09/13/2024 [facility] RDW RBC Auto-Rto 14.4 % Normal 09/13/2024 11.5 - 14.5 CCT Basophils num Bld Auto 0.05 Thou/uL Normal 09/13/2024 0 - 0.2 CCT Basophils/leuk NFr Bld Auto 0.6 % Normal 09/13/2024 [facility] Imm Granulocytes/leuk NFr Bld Auto 0.7 % Normal 09/13/2024 [facility] Imm Granulocytes num Bld Auto 0.06 Thou/uL Normal 09/13/2024 0 - 0.1 CCT Hct VFr Bld Auto 36.4 % Below low normal 09/13/2024 39 - 54 CCT Eosinophil num Bld Auto 0.38 Thou/uL Normal 09/13/2024 0 - 0.7 HHCCT PMV Bld Auto 9.6 fL Normal 09/13/2024 7.5 - 12.5 HHCCT Lymphocytes num Bld Auto 1.42 Thou/uL Below low normal 09/13/2024 1.5 - 4.5 HHCCT Neutrophils/leuk NFr Bld Auto 69.7 % Normal 09/13/2024 HHCCT RBC num Bld Auto 3.72 Mil/uL Below low normal 09/13/2024 4.5 - 6.2 HHCCT Lymphocytes/leuk NFr Bld Auto 16.5 % Normal 09/13/2024 HHCCT MCH RBC Qn Auto 32.3 pg Above high normal 09/13/2024 27 - 31 HHCCT Eosinophil/leuk NFr Bld Auto 4.4 % Normal 09/13/2024 HHCCT MCHC RBC Auto-mCnc 33.0 g/dL Normal 09/13/2024 30 - 36 HHCCT Monocytes/leuk NFr Bld Auto 8.1 % Normal 09/13/2024 HHCCT Neutrophils num Bld Auto 6.0 Thou/uL Normal 09/13/2024 2 - 7.5 HHCCT WBC num Bld Auto 8.6 Thou/uL Normal 09/13/2024 4 - 11 HHCCT Monocytes num Bld Auto 0.7 Thou/uL Normal 09/13/2024 0.2 - 1.5 HHCCT Platelet num Bld Auto 235.0 Thou/uL Normal 09/13/2024 150 - 450 HHCCT MCV RBC Auto 98.0 fL Normal 09/13/2024 80 - 100 HHCCT Hgb Bld-mCnc 12.0 g/dL Below low normal 09/13/2024 13 - 17.7 HHCCT POC Glucose 151.0 mg/dL Above high normal 09/13/2024 65 - 99 HHCCT POC Glucose 124.0 mg/dL Above high normal 09/13/2024 65 - 99 HHCCT POC Glucose 135.0 mg/dL Above high normal 09/13/2024 65 - 99 HHCCT POC Glucose 141.0 mg/dL Above high normal 09/12/2024 65 - 99 HHCCT POC Glucose 145.0 mg/dL Above high normal 09/12/2024 65 - 99 HHCCT POC Glucose 115.0 mg/dL Above high normal 09/12/2024 65 - 99 HHCCT POC Glucose 143.0 mg/dL Above high normal 09/12/2024 65 - 99 HHCCT POC Glucose 128.0 mg/dL Above high normal 09/12/2024 65 - 99 HHCCT POC Glucose 148.0 mg/dL Above high normal 09/11/2024 65 - 99 HHCCT POC Glucose 100.0 mg/dL Above high normal 09/11/2024 65 - 99 HHCCT POC Glucose 143.0 mg/dL Above high normal 09/11/2024 65 - 99 HHCCT Potassium SerPl-sCnc 4.1 mmol/L Normal 09/11/2024 3.4 - 5.3 HHCCT Anion Gap Bld-sCnc 11.0 Normal 09/11/2024 7 - 17 HHCCT CO2 SerPl-sCnc 25.0 mmol/L Normal 09/11/2024 22 - 33 HH CCT BUN SerPl-mCnc 19.0 mg/dL Normal 09/11/2024 8 - [address] GFR/BSA.pred SerPlBld QUW-IRN-DvLEof 85.0 Normal 09/11/2024 59 - HHCCT Chloride SerPl-sCnc 103.0 mmol/L Normal 09/11/2024 98 - 1 07 HHCCT Sodium SerPl-sCnc 139.0 mmol/L Normal 09/11/2024 136 - 14 5 HHCCT Calcium SerPl-mCnc 8.4 mg/dL Below low normal 09/11/2024 8.7 - 10.5 HHCCT BUN/Creat SerPl 19.0 Ratio Normal 09/11/2024 10 - 25 HH CCT Glucose SerPl-mCnc 126.0 mg/dL Above high normal 09/11/2024 65 - 99 HHCCT Creat SerPl-mCnc 1.0 mg/dL Normal 09/11/2024 0.5 - 1.3 HH CCT POC Glucose 155.0 mg/dL Above high normal 09/11/2024 65 - 99 HHCCT POC Glucose 190.0 mg/dL Above high normal 09/11/2024 65 - 99 HHCCT POC Glucose 120.0 mg/dL Above high normal 09/10/2024 65 - 99 HHCCT Lymphocytes/leuk NFr Bld Auto 4.3 % Normal 09/10/2024 H[facility]CT RBC num Bld Auto 3.35 Mil/uL Below low normal 09/10/2024 4.5 - 6.2 H[facility]CT Hct VFr Bld Auto 33.2 % Below low normal 09/10/2024 39 - 54 H[facility]CT PMV Bld Auto 10.2 fL Normal 09/10/2024 7.5 - 12.5 HHCCT Imm Granulocytes/leuk NFr Bld Auto 0.6 % Normal 09/10/2024 H[facility]CT Basophils num Bld Auto 0.03 Thou/uL Normal 09/10/2024 0 - 0.2 [facility] Platelet num Bld Auto 244.0 Thou/uL Normal 09/10/2024 150 - 450 H[facility]CT Hgb Bld-mCnc 10.7 g/dL Below low normal 09/10/2024 13 - 17.7 HHCCT WBC num Bld Auto 8.1 Thou/uL Normal 09/10/2024 4 - 11 H[facility]CT RDW RBC Auto-Rto 14.5 % Normal 09/10/2024 11.5 - 14.5 H[facility]CT Neutrophils num Bld Auto 7.48 Thou/uL Normal 09/10/2024 2 - 7.5 H[facility]CT MCV RBC Auto 99.0 fL Normal 09/10/2024 80 - 100 H[facility]CT MCH RBC Qn Auto 31.9 pg Above high normal 09/10/2024 27 - 31 H[facility]CT Lymphocytes num Bld Auto 0.35 Thou/uL Below low normal 09/10/2024 1.5 - 4.5 HHCCT MCHC RBC Auto-mCnc 32.2 g/dL Normal 09/10/2024 30 - 36 H[facility]CT Eosinophil num Bld Auto 0.03 Thou/uL Normal 09/10/2024 0 - 0.7 HHCCT Imm Granulocytes num Bld Auto 0.05 Thou/uL Normal 09/10/2024 0 - 0.1 H[facility]CT Monocytes num Bld Auto 0.13 Thou/uL Below low normal 09/10/2024 0.2 - 1.5 H[facility]CT Basophils/leuk NFr Bld Auto 0.4 % Normal 09/10/2024 H[facility]CT Eosinophil/leuk NFr Bld Auto 0.4 % Normal 09/10/2024 H[facility]CT Monocytes/leuk NFr Bld Auto 1.6 % Normal 09/10/2024 [facility]CT Neutrophils/leuk NFr Bld Auto 92.7 % Normal 09/10/2024 HHCCT CO2 SerPl-sCnc 26.0 mmol/L Normal 09/10/2024 22 - 33 HH CCT Glucose SerPl-mCnc 92.0 mg/dL Normal 09/10/2024 65 - 99 HHCCT GFR/BSA.pred SerPlBld AHA-DIN-YbXIte 85.0 Normal 09/10/2024 59 - HHCCT Calcium SerPl-mCnc 8.3 mg/dL Below low normal 09/10/2024 8.7 - 10.5 H[facility]CT Chloride SerPl-sCnc 106.0 mmol/L Normal 09/10/2024 98 - 1 07 H[facility]CT Sodium SerPl-sCnc 141.0 mmol/L Normal 09/10/2024 136 - 14 5 HHCCT Potassium SerPl-sCnc 4.5 mmol/L Normal 09/10/2024 3.4 - 5.3 H[facility]CT Anion Gap Bld-sCnc 9.0 Normal 09/10/2024 7 - 17 H[facility]CT Creat SerPl-mCnc 1.0 mg/dL Normal 09/10/2024 0.5 - 1.3 HH CCT BUN SerPl-mCnc 24.0 mg/dL Above high normal 09/10/2024 8 - 2 1 H[facility]CT BUN/Creat SerPl 24.0 Ratio Normal 09/10/2024 10 - 25 HH CCT Prot SerPl-mCnc 6.2 g/dL Below low normal 09/10/2024 6.3 - 8.3 HHCCT Bilirub SerPl-mCnc 0.4 mg/dL Normal 09/10/2024 0.2 - 1 HHCCT ALP SerPl-cCnc 89.0 U/L Normal 09/10/2024 45 - 128 HHCC T Bilirub Direct SerPl-mCnc <0.2 mg/dL Normal 09/10/2024 0 - 0.2 HHCCT ALT SerPl-cCnc 27.0 U/L Normal 09/10/2024 10 - 55 [facility] T AST SerPl-cCnc 25.0 U/L Normal 09/10/2024 10 - 55 [facility] T Albumin/Glob SerPl 1.4 Ratio Normal 09/10/2024 1 - 3 H[facility]CT Albumin SerPl-mCnc 3.6 g/dL Normal 09/10/2024 3.4 - 4.8 H[facility]CT Globulin Ser Calc-mCnc 2.6 g/dL Normal 09/10/2024 1.5 - 3.9 HHCCT POC Glucose 92.0 mg/dL Normal 09/10/2024 65 - 99 CCT ISTAT Glucose 119.0 mg/dL Above high normal 09/13/2024 65 - 99 CCT ISTAT Glucose 57.0 mg/dL Below low normal 09/13/2024 65 - 99 CCT POC Glucose 97.0 mg/dL Normal 09/10/2024 65 - 99 CCT POC Glucose 57.0 mg/dL Below low normal 09/10/2024 65 - 99 CCT POC Glucose 54.0 mg/dL Below low normal 09/10/2024 65 - 99 CCT Result Not Detected Normal 09/04/2024 - CCT Hgb A1c MFr Bld 8.7 % Above high normal 09/04/2024 - 5.7 CCT Est. average glucose Bld gHb Est-mCnc 203.0 mg/dL Normal 09/04/2024 CCT Prealb SerPl-mCnc 25.0 mg/dL Normal 09/03/2024 20 - 40 H[facility]CT Transferrin SerPl-mCnc 230.0 mg/dL Normal 09/03/2024 200 - 360 [facility]CT History of Medication Use Medication Directions Dispensed Refills Start Date End Date Stat betamethasone acetate-betamethason e sodium phosphate (CELESTONE) injection 12 mg 12 mg, Intra-articular, Once PRN Procedure, Starting on Fri01/18/25 at 1045, For 1 dose 01/18/2025 01/18/2025 completed HYDROmorphone (DILAUDID) 2 MG tablet Take 1 tablet (2 mg total) by mouth 4 times daily (every 6 hours) as needed for severe pain or moderate pain. Max Daily Amount: 8 mg 11/30/2024 active amLODIPine (NORVASC) 5 MG tablet Take 1 tablet (5 mg total) by mouth daily. 11/25/2024 active aspirin enteric coated (ECOTRIN LOW STRENGTH) 81 MG EC tablet Take 1 tablet (81 mg total) by mouth daily. 11/25/2024 active buPROPion (WELLBUTRIN SR) 150 MG 12 hr tablet Take 1 tablet (150 mg total) by mouth 2 (two) times a day in the morning and the early evening.. 11/25/2024 active erythromycin (ILOTYCIN) ophthalmic ointment Administer 1 application(s) to the right eye 4 (four) times a day. 11/25/2024 active folic acid (FOLVITE) 1 MG tablet Take 1 tablet (1 mg total) by mouth daily. 11/25/2024 active pregabalin (LYRICA) 100 MG capsule Take 1 capsule (100 mg total) by mouth 3 (three) times a day. 11/25/2024 active cefTRIAXone 2 g in sodium chloride-MBP 0.9% 100 mL IVPB Infuse 2 g into a venous catheter every 24 hours. 11/24/2024 active DAPTOmycin-Sodium Chloride 700-0.9 MG/100ML-% Solution Infuse 975 mg into a venous catheter daily. 11/24/2024 active sulfamethoxazole-tri methoprim (BACTRIM DS,SEPTRA DS) 800-160 MG per tablet Take 1 tablet by mouth 2 (two) times a day. 10/05/2024 active methocarbamol (ROBAXIN) 500 MG tablet Take 1 tablet (500 mg total) by mouth 4 (four) times a day as needed for muscle spasms. 09/16/2024 10/17/2024 active oxyCODONE (ROXICODONE) 5 MG immediate release tablet Take 1-2 tablets (5-10 mg total) by mouth every 4 (four) hours as needed for severe pain. Max Daily Amount: 60 mg 09/16/2024 active polyethylene glycol (miraLAx) 17 g packet Take 1 packet (17 g total) by mouth daily. 09/16/2024 active senna (SENOKOT) 8.6 MG Tab tablet Take 2 tablets by mouth daily as needed for constipation. 09/16/2024 active Multiple Vitamin (Multi-Vitamin) tablet Take 1 tablet by mouth daily. 09/01/2024 10/02/2024 active lactobacillus (FLORANEX) Pack packet Take 1 packet by mouth 3 (three) times a day. With meals 08/31/2024 10/01/2024 active oxyCODONE-acetaminop hen (PERCOCET) 5-325 mg per tablet Take 1 tablet by mouth every 4 (four) hours as needed for moderate pain. 1-2 tabs prn 08/31/2024 09/08/2024 active amoxicillin (AMOXIL) 500 MG capsule Take 1 capsule (500 mg total) by mouth 3 (three) times a day. For 1 week for DENTAL procedures 08/31/2024 active pravastatin (PRAVACHOL) 20 MG tablet Take 1 tablet (20 mg total) by mouth daily. 07/27/2024 active Nicotine 21-14-7 MG/24HR Kit Place 1 patch on the skin daily. 05/24/2024 active donepezil (ARICEPT) 10 MG tablet Take 1 tablet (10 mg total) by mouth every morning. 10/20/2023 active melatonin 10 MG Tab tablet Take 10 mg by mouth nightly. active nicotine polacrilex (NICORETTE) 2 MG gum Apply 1 each (2 mg total) to the mouth or throat as needed for smoking cessation. active Allergies Allergen Reaction Severity Comment Documented Date Source Statu s LISINOPRIL OTHER (SEE COMMENTS) Dehydration 09/03/2024 [facility] active Problems Problem Status Onset Date Problem Type Date of Resolution Source Osteomyelitis active 2024-09-10 ProblemAct [facility] T Acute osteomyelitis of left calcaneus active 2024-11-02 ProblemAct [facility] Mitral valve regurgitation active 2024-11-06 ProblemAct [facility] Presence of permanent cardiac pacemaker active 2024-11-06 ProblemAct [facility] MERVIN on CPAP active ProblemAct [facility] CKD (chronic kidney disease) active 2024-09-16 ProblemAct [facility] Bacteremia active 2024-11-06 ProblemAct [facility] Hyperlipidemia active ProblemAct [facility] T Diabetes active ProblemAct [facility] Mitral valve vegetation active 2024-11-06 ProblemAct [facility] Complete AV block active ProblemAct [facility] Atrial flutter active ProblemAct [facility] T A-fib active ProblemAct [facility] Smoker active ProblemAct [facility] Pacemaker infection active 2024-11-02 ProblemAct [facility] Endocarditis active 2024-11-02 ProblemAct [facility] Acute osteomyelitis of right ankle or foot active 2024-09-03 ProblemAct [facility] HTN (hypertension) active ProblemAct [facility] PAD (peripheral artery disease) active ProblemAct [facility] Primary osteoarthritis of right knee active Encounter[facility] Amputation of left lower extremity below knee active 2024-12-23 ProblemAct [facility] Chronic diastolic congestive heart failure active 2024-04-28 ProblemAct [facility] Stage 3a chronic kidney disease (CKD) active ProblemAct [facility] Encounters Encounter Type Encounter Reason Primary Diagnosis Location Date Ambulatory Encounter for other preprocedural examination Encounter for other preprocedural examination [facility] 04/22/2025 Ambulatory [facility] 04/19/2025 Ambulatory Pain in left knee Pain in left knee [facility] 04/19/2025 Ambulatory Pain Pain [facility] 04/05/2025 Ambulatory [facility] 03/08/2025 Ambulatory Rheumatic mitral valve disease, unspecified Rheumatic mitral valve disease, unspecified [facility] 01/27/2025 Ambulatory Complete traumatic amputation at level between knee and ankle, left lower leg, subsequent encounter Complete traumatic amputation at level between knee and ankle, left lower leg, subsequent encounter [facility] 01/25/2025 Ambulatory [facility] 01/18/2025 Ambulatory Pain in right knee Pain in right knee [facility] 01/18/2025 Ambulatory Complete traumatic amputation at level between knee and ankle, left lower leg, subsequent encounter Complete traumatic amputation at level between knee and ankle, left lower leg, subsequent encounter [facility] 12/28/2024 Ambulatory Bacteremia Bacteremia [facility] 12/22/2024 Ambulatory Gastro-esophageal reflux disease without esophagitis Gastro-esophageal reflux disease without esophagitis [facility] 12/16/2024 Ambulatory BKA BKA [facility] 12/14/2024 Ambulatory Presence of cardiac pacemaker Presence of cardiac pacemaker [facility] 12/07/2024 Ambulatory Complete traumatic amputation at level between knee and ankle, left lower leg, initial encounter Complete traumatic amputation at level between knee and ankle, left lower leg, initial encounter [facility] 11/30/2024 Inpatient Other acute osteomyelitis, left ankle and foot Other acute osteomyelitis, left ankle and foot [facility] 11/02/2024 Ambulatory [facility] 11/02/2024 Ambulatory Other acute osteomyelitis, left ankle and foot Other acute osteomyelitis, left ankle and foot [facility] 11/02/2024 Ambulatory [facility] 10/19/2024 Ambulatory Other acute osteomyelitis, left ankle and foot Other acute osteomyelitis, left ankle and foot [facility] 10/19/2024 Ambulatory [facility] 10/05/2024 Ambulatory Pain in unspecified foot Pain in unspecified foot [facility] 10/05/2024 Inpatient Other chronic osteomyelitis, unspecified ankle and foot Other chronic osteomyelitis, unspecified ankle and foot [facility] 09/10/2024 Ambulatory Encounter for other preprocedural examination Encounter for other preprocedural examination [facility] 09/03/2024 Ambulatory [facility] 09/01/2024 Ambulatory Pain in left ankle and joints of left foot Pain in left ankle and joints of left foot [facility] 09/01/2024 Care Team Organization Name Specialty Phone Email Start Date End Da te [facility] Lee Fabian [facility] 03/09/2025 [facility] 09[facility]04[facility]2024 [facility] 09/02/2024 [facility] 05/27/2023 05/27/2023 [facility] Bib Yadav Primary Care 03/07/202305/17 [facility] Eva Snider APRN Primary Care 08/06/2022 05/17/2024
--- OUTSIDE RECORDS SUMMARY | 2025-04-27 14:37 | XMS_ITS | Clinical Summary ---
Author Organization [facility] Address [address] [place] [phone] Phone Care Team Providers Care Uniformer Name Role Phone Pcp, Unknown Primary Care Provider Unavailabl e Allergies No known active allergies Medications cephalexin (KEFLEX) 500 MG capsule Take 1 capsule (500 mg total) by mouth 4 (four) times a day. 28 capsule 04/09/2020 Active Immunizations Immunization Administration Dates Next Due Tdap 04/09/2020 Social History Tobacco Use Types Packs/Day Years Used Date Smoking Tobacco: Former Smokeless Tobacco: Never Alcohol Use Standard Drinks/Week Comments Not Currently 0 (1 standard drink = 0.6 oz pur e alcohol) Education Answer Date Recorded Are you interested in more education? Not on russell e 01/24/2023 Are you concerned about learning? Not on file 01/24/2023 No 01/24/2023 No 01/24/2023 Digital Access Answer Date Recorded No 02/22/2023 No 02/22/2023 No 02/22/2023 Reliable internet access at home? Not on file 02/22/2023 Device with a working camera? Not on file Sex and Gender Information Value Date Recorded Sex Assigned at Male 04/09/2020 5:58 PM EDT Legal Sex Male 5:41 PM EDT Gender Identity Male 04/09/2020 5:58 PM EDT Sexual Orientation Straight 04/09/2020 5: 58 PM EDT Last Filed Vital Signs Vital Sign Reading Time Taken Comments Blood Pressure 137/83 04/09/2020 5:54 PM EDT Pulse 75 04/09/2020 5:54 PM EDT Temperature 36.8 C (98.2 F) 04/09/2020 5:54 PM EDT Respiratory Rate 20 04/09/2020 5:54 PM EDT Oxygen Saturation 98% 04/09/2020 5:54 PM EDT Inhaled Oxygen Concentration - - Weight 98.9 kg (218 lb) 04/09/2020 5:54 PM EDT Height 190.5 cm (6' 3 ) 04/09/2020 5:54 PM EDT Body Mass Index 27.25 04/09/2020 5:54 PM EDT Plan of Treatment Health Maintenance Due Date Last Done Comments LIPID PANEL 1960 DEPRESSION SCREENING 1972 SMOKING Hx and SMOKELESS TOBACCO SCREENING 1973 HEPATITIS C SCREENING 1978 HIV ONE-TIME SCREENING (18-6 5 YEARS) 1978 COLOGUARD 2005 COLONOSCOPY 2005 COLORECTAL CANCER SCREENING 2005 FIT TEST 2005 FOBT 2005 SIGMOIDOSCOPY 2005 VIRTUAL COLONOSCOPY 2005 PNEUMOCOCCAL VACCINES (50+ years) (2 of 2 - PCV) 01/05/2018 01/05/2017 COVID-19 VACCINE (2 - 2023-2 5 season) 2024 12/25/2020 Adult Td,Tdap Booster 04/09/2030 04/09/2020 , 12/16/2017 RSV VACCINE (1 - 1-dose 75+ series) 11/30/2035 ZOSTER VACCINES Completed 04/13/2018, 12/16/2017 HEPATITIS A VACCINES Aged Out No long er eligible based on patient's age to complete this topic HIB VACCINES Aged Out No longer eligi ble based on patient's age to complete this topic MENINGOCOCCAL VACCINES (ACWY) Aged Out No longer eligible based on patient's age to complete this topic MENINGOCOCCAL VACCINES (B) Aged Out N o longer eligible based on patient's age to complete this topic Medical Devices Not on file Insurance MEDICARE PART A & B [employer] MEDEX SUPPLEMENT MEDICARE PART A & B [employer] MEDEX SUPPLEMENT MEDICARE PART A & B [employer] MEDEX SUPPLEMENT MEDICARE PART A & B [employer] MEDEX SUPPLEMENT MEDICARE PART A & B Member Subscriber Plan / Payer (Ef fective 2018-) Name:Sebastien Luca Member ID:[id number] Relation to Subscriber:Self Name:CroweAngeles eqsuiveln Subscriber ID:[id number] Payer ID:[id number] Group ID:Not on file Type:Medicare Address: [employer] [address] [place] [phone] [employer] MEDEX SUPPLEMENT MEDICARE PART A & B [employer] MEDEX SUPPLEMENT MEDICARE PART A & B [employer] MEDEX SUPPLEMENT MEDICARE PART A & B [employer] MEDEX SUPPLEMENT MEDICARE PART A & B [employer] MEDEX SUPPLEMENT MEDICARE PART A & B [employer] MEDEX SUPPLEMENT Care Teams Uniformer Relationship Specialty Start Date End Date Pcp, Unknown PCP - General 04/09/20 Additional Source Comments The information contained in this document represents components of the legal health record. It is not the complete legal health record.[facility]
--- OUTSIDE RECORDS SUMMARY | 2025-04-27 14:37 | XMS_ITS | Clinical Summary ---
Author Organization [facility] Address [address] [facility] [address] [address] Phone Care Team Providers Care Window Cutter Name Role Phone Lee Fabian MD Primary Care Provider [phone] Allergies Active Allergy Reactions Criticality Noted Date [...] Encounters Date Type Department Care Team Description 04/16/2025 Orders Only [facility] [address] [phone] Rolando Lopez MD Stage 3b chronic kidney disease (HCC); Type 2 diabetes mellitus with diabetic chronic [...] Office Visit [facility] [address] [phone] Marlin Zarate ARNP [address] [phone] Health Maintenance Due Date Last Done Comments Colorectal Cancer Screening: Annual FOBT 2009 Colorectal Cancer Screening: Colonoscopy 2009 Colorectal Cancer Screening: Sigmoidoscopy 2009 Pneumococcal Vaccine: 50+ Years (3 of 3 - PCV) 01/05/2018 01/05/2017, 11/11/2015 Diabetes: Ophthalmology Exam 01/22/2024 11/11/2016, 11/07/2015, 10/17/2006 Diabetes: Pedal Pulse Checked 01/22/2024 Diabetes: Sensory Foot Exam 01/22/2024 Diabetes: Visual Foot Exam 01/22/2024 Influenza Vaccine (#1) 2025 4, 07/08/2023, 07/18/2022, Additional history exists Diabetes: Hemoglobin A1C 06/02/2025 025, 09/03/2024, 07/22/2024, Additional history exists Pneumococcal Vaccine: Peds (0 to 5 Years) and At-Risk Patients (6 to 49 Years) Discontinued 01/05/2017, 11/11/2015 Hepatitis B Vaccine Aged Out No longe r eligible based on patient's age to complete this topic Insurance [employer] [facility] Adv PPO ([id number]) [employer] [facility] Adv PPO ([id number]) Care Teams Window Cutter Relationship Specialty Start Date End Date Lee Fabian MD PCP - General Internal Medicine 01/21/24
--- OUTSIDE RECORDS SUMMARY | 2025-04-27 14:37 | XMS_ITS | Encounter Summary ---
Author Organization [facility] Address [address] [place] [address] Care Team Providers Care Brasswind Instrument Repairer Name Role Phone Lee Fabian MD Primary Care Provider Unavail able Vitaliy Fields MD Unavailable Dallas Camejo MD Unavailable [phone] Rolando Lopez MD Unavailable Cesar Fair MD Unavailable Daisy Her PT Unavailable Ena Mtz MD Unavailable Toni Rae MD Unavailable [phone] System, Provider Not In Unavailable Unavaila Manuel Soler MD Unavailable Encounter Details Date Type Department Care Team (Late st Contact Info) Description 12/15/2024 Scanned Document [facility] [address] Dallas Camejo MD [address] [place] [phone] Social History Tobacco Use Types Packs/Day Years Used Date Smoking Tobacco: Former Cigarettes 1 29.6 1 977 - 2004 Smokeless Tobacco: Never Alcohol Use Standard Drinks/Week Comments Yes 21 (1 standard drink = 0.6 oz pu re alcohol) [facility] Utilities Answer Date Recorded In [...] Care Team (Late st Contact Info) Description 05/16/2025 10:30 AM EDT Hospital Encounter [facility] [place] at [address] [phone] Manuel Mesa MD [address] [facility] [address] [place] [phone] 05/16/2025 10:30 AM EDT - 05/16/2025 1:00 PM EDT Surgery [facility] [place] at [address] [phone] Manuel Mesa MD [address] [facility] [address] [place] [address] [phone] ARTHROPLASTY TOTAL KNEE Scheduled Procedures Name Priority Associated Diagnoses Date/Ti me ARTHROPLASTY TOTAL KNEE Primary osteoarthritis of right knee 05/16/2025 10:30 AM EDT documented as of this encounter Visit Diagnoses Not on filedocumented in this encounter Care Teams Brasswind Instrument Repairer Relationship Specialty Start Date End Date Lee Fabian MD PCP - General Internal Medicine 09/02/24 Vitaliy Fields MD [address] [place] [phone] Cardiovascular Disease 09/02/24 Dallas Camejo MD [address] [place] [phone] Surgery, Orthopedic 09/02/24 Rolando Lopez MD [address] [address] [place] [address] Physician Nephrology 09/02/24 Cesar Fair MD [address] [place] [address] [place] [address] Surgery, Cardiac 11/08/24 Daisy Her, PT [address] [facility] [address] [place], [place] [phone] Pipeline OperatorIndustrial X Ray Operator Medicine and Rehabilitation 11/18/24 Ena Mtz MD [address] [place] [phone] Infectious Disease 04/12/25 Toni Rae MD [address] [place] [address] Surgery, Vascular 04/12/25 System, Provider Not In 04/12/25 Manuel Mesa MD [address] [facility] [address] [place] [address] Physician Surgery, Orthopedic 04/19/25 documented as of this encounter
--- OUTSIDE RECORDS SUMMARY | 2025-04-27 14:37 | XMS_ITS | Encounter Summary ---
Author Organization [facility] Address [address] [place] [address] Care Team Providers Care Audiology Technician Name Role Phone Lee Fabian MD Primary Care Provider [phone] Reason for Visit * Reason Onset Date Comments UTI 04/05/2025 Leg Swelling 04/05/2025 Encounter Details Date Type Department Care Team (Late st Contact Info) Description 04/05/2025 Telephone [facility] [address] [facility] [place] [phone] Lee Fabian MD [address] [place] [address] UTI; Leg Swelling Social History Tobacco Use Types Packs/Day Years Used Date Smoking Tobacco: Every Day Cigarettes 1 1.7 Started: 08/06/2023; Last attempted to quit: 10/30/2003 Smokeless Tobacco: Never Alcohol Use Standard Drinks/Week Comments Yes 12 (1 standard drink = 0.6 oz pu re alcohol) Interpersonal Safety Answer Date Record ed Physical Abuse 04/05/2025 Verbal Abuse 04/05/2025 Sex and Gender Information Value Date Recorded [...] documented in this encounter Progress Notes * Amaris Bullard RN - 04/05/2025 11:46 AM EDT spoke to pt-reports of sudden bilat. leg swelling without any redness or pain x few days while on bumetanide daily. denies any cp/SOB. pt is w/chair bound. pt also reports of urin. s/x- freqcy/burning x few wks. denies any bld in urine/fever/lower abdl or back discomf. Advised to be eval in the ER- he agrees and will go to [facility] today. Advised to callback office for hosp. f/up with PCP. * Lizette Myers - 04/05/2025 11:24 AM EDT Patient call requires triage: Symptoms patient is presenting: uti, burning and fequency, both legs swollen How long has patient had these symptoms?: 3 weeks For ALL patients calling to schedule any appointment (routine, sick visit, follow up, consult, etc.) in the outpatient setting please ask the following questions: Do you have fever of higher than 101, sore throat with difficulty swallowing or severe shortness ofbreath? no If YES to any of these above symptoms, send a message to triage and do not book. Red dot. If no, an audio or video visit should be booked. Have you had close contact with someone with Coronavirus in the last 14 days? no Have you traveled abroad? no Have you traveled recently to another state outside of [place], [place], [place], [place], [place], [place], [place]? no o If yes, did you quarantine for 14 days or have a negative covid test? no If yes to any of the above, patient is not to be scheduled in office until after 14 day quarantine or negative covid test. If pain or injury related was it due to an accident at work or from a motor vehicle accident? If yes, date of accident/Injury: No If yes, gather 3rd constitution party insurance information [employer] Party Information: not applicable PCP: Lee Fabian MD Payor: [employer]AGE / Plan: [employer] MED[employer]ARE ADVANTAGE / Product Type: *No Product type* / documented in this encounter Plan of Treatment Upcoming Encounters Date Type Department Care Team (Late st Contact Info) Description 06/02/2025 3:30 PM EDT Office Visit Endocrinology - [address] [phone] Geeta Person PA [address] [place] [address] 07/25/2025 2:40 PM EDT Office Visit Gastroenterology - [place] [address] [facility] [address] [facility] [address] [place] [phone] Fatou Weaver PA [address] [facility] [address] [place] [address] documented as of this encounter Goals Goal [...] Onset Date Last Indicated Resolved Time ESBL Comment:Wound resolved 08/03/2024 08/22/2024 04/06/2025 1:20 P M EDT MRSA Comment:Facility does not currently isolate for MRSA. 10/27/2024 10/27/2024 04/06/2025 1:19 PM E DT VRE Comment:Facility does not currently isolate for VRE 10/27/2024 10/27/2024 04/06/2025 1:19 PM E DT documented as of this encounter Care Teams Audiology Technician Relationship Specialty Start Date End Date Lee Fabian MD [address] [place] [phone] PCP - General Internal Medicine 08/03/24 documented as of this encounter
== END 2025-04-27 14:38 | disposition home or self-care (01) ==
LOC: HO.HCS 13:56
PROVIDERS: PCP Internal Medicine; Visit Provider Internal Medicine
DX: I48.0 Paroxysmal atrial fibrillation (principal); I50.30 Unspecified diastolic (congestive) heart failure; Z95.818 Presence of other cardiac implants and grafts; G47.33 Obstructive sleep apnea (adult) (pediatric); Z01.810 Encounter for preprocedural cardiovascular examination; Z95.0 Presence of cardiac pacemaker
CPT/HCPCS: 93010; 99214; G2211

== ENCOUNTER → 2025-04-27 13:56 | Outpatient (BNVA) | payer MEDICARE, SELFPAY | PROVIDERS: PCP Internal Medicine; Visit Provider Internal Medicine | DX: Z01.810 Encounter for preprocedural cardiovascular examination (principal); I48.0 Paroxysmal atrial fibrillation; I50.30 Unspecified diastolic (congestive) heart failure; G47.33 Obstructive sleep apnea (adult) (pediatric); Z95.0 Presence of cardiac pacemaker; Z95.818 Presence of other cardiac implants and grafts | CPT/HCPCS: 93005; 99212 ==

== ENCOUNTER → 2025-06-06 14:51 | Outpatient (BNVA) | payer MEDICARE, SELFPAY | PROVIDERS: PCP Internal Medicine; Visit Provider Internal Medicine | DX: Z13.89 Encounter for screening for other disorder (principal) ==

== ENCOUNTER 2025-07-12 14:52 | Outpatient (AMB) | payer MEDICARE, SELFPAY ==
--- NOTE | 2025-07-12 15:12 | MHC.OFFVIS ---
Vital Signs 07/12/25 15:13 Height 6 ft 3 in BMI Reason not done Patient refused/unable BP 124/58 L Blood Pressure Location Rt brachial Position Sitting Pulse 71 Pulse Source Monitor Intake Visit Reasons: 6 month f/up device ck Bottom Cager Required: No Accompanied by: Self / Same As Patient Allergies lisinopril Allergy (Mild, Verified 07/12/25 15:13) kidney trouble Medication List - Last Reconciled 07/12/25 by Vitaliy Fields MD amlodipine 10 mg PO DAILY aspirin (Adult Aspirin Regimen) 81 mg PO DAILY bumetanide 2 mg PO DAILY 90 days cholecalciferol (vitamin D3) 25 mcg PO DAILY donepezil 10 mg PO DAILY empagliflozin (Jardiance) 25 mg PO DAILY glipizide ER 2.5 mg PO BID metformin 500 mg PO ONCE metoprolol tartrate 50 mg PO BID pantoprazole 40 mg PO DAILY pravastatin 20 mg PO DAILY pregabalin (Lyrica) 150 mg PO BID HPI Comments Details: Luca returns for follow-up. Long and complicated history. History of atrial fibrillation and he has had prior cardioversions and ablations numerous times. History of gastrointestinal bleeding and underwent Watchman device. History of bariatric surgery and weight loss. Chronic heart failure on diuretics. In the clinic visit from 2023, he was in atrial flutter with rapid rate. Then had therapeutic anticoagulation followed by cardioversion. He was supposed to get another ablation at [facility] but in the interim, he had developed left foot osteomyelitis. After that, he underwent left below-knee amputation. In this context, had bacteremia with MRSA/VRE. There was question of mitral valve/pacemaker lead endocarditis. Put on antibiotics. Then had heart failure exacerbation. Then was put on Bumex drip. TATIANNA had shown concern for mobile echodensity in the mitral valve annulus and adjacent to Watchman device. Following this, dual-chamber pacemaker extracted and he had micra implanted. Eventually, discharged home. It seems he briefly saw [facility] as well. He was scheduled to get atrial flutter ablation but because of other medical issues it got postponed. He states he is now getting it in August and has a date finalized. With regard to the flutter itself, we had put him on Amiodarone for maintaining rhythm but then he developed hypothyroidism and it was stopped. Last time, he stated that he was fine but today he states he is getting short of breath with activity. Today's EKG shows an atypical flutter but controlled rate. [facility] Medical History (Updated 02/07/25 @ 12:55 by Vitaliy Fields MD) Diabetes Obstructive sleep apnea Paroxysmal atrial fibrillation (HFpEF) heart failure with preserved ejection fraction Presence of Watchman left atrial appendage closure device Pacemaker Hx of cardiac pacemaker Surgical History History of amputation of toe Hx of hand surgery Hx of colonoscopy Hx of total knee replacement Hx of gastric bypass History of amputation of lesser toe Hx of colonoscopy Hx of prior ablation treatment Hx of foot surgery Family History Father Emphysema lung Mother Heart failure Son Ulcerative colitis Brother No problems noted. Sister No problems noted. Sister No problems noted. Social History Are you a primary critical care unit manager to a significant other at home: No Do you presently have visiting nurse or other home services: No Alcohol intake: current Alcohol intake frequency: a few times a week Patient Tobacco Use Status: Former Tobacco user Tobacco use type: Cigarette Review of Systems Const Denies daytime sleepiness, Denies difficulty sleeping, Denies snoring, Denies stops breathing during sleep and Denies weakness Card Denies chest pain, Denies rapid heart rate, Denies irregular heart rhythm, Denies claudication, Denies leg edema, Denies lightheadedness, Denies palpitations, Denies dyspnea, Reports dyspnea on exertion, Denies orthopnea, Denies paroxysmal nocturnal dyspnea and Denies slow heart rate Resp Denies cough, Denies dyspnea, Reports dyspnea on exertion and Denies snoring GI Reports no additional complaints, Denies hematochezia, Denies change in stool character and Denies dyspepsia Musc Denies abnormal gait, Denies muscle weakness and Denies numbness Neuro Denies abnormal gait, Denies numbness and Denies weakness Endo Denies palpitations Physical Exam Vital Signs: Last Vital Signs Pulse 71 07/12/25 15:13 BP 124/58 L 07/12/25 15:13 Const General: comfortable and no acute distress Orientation/consciousness: patient oriented x3 HEENT Other: Unremarkable Head: Yes normal to inspection Neck Neck: Yes normal visual inspection Chest Chest palpation & inspection: normal inspection of the chest Resp Auscultation: clear to auscultation bilaterally Cardio Palpation: normal PMI Heart sounds: S1 normal heart sound present, S2 normal heart sound present, no gallops, no murmurs and no rubs GI Palpation (GI): Soft to palpation Back/Spine/Pelvis Other: unremarkable Skin General skin exam: no rashes or lesions noted Neuro General: patient oriented x3 Extrem Other: L BKA Psych Mental Status: mental status grossly normal Office Procedures Cardiac Device Check Cardiac Device Check Details: Pacemaker interrogated today. Remaining longevity more than 10 years. Normal lead parameters. Suspected to be in atrial fibrillation, controlled rate. Total HISTORIAN RESEARCH ASSISTANT >90%. Normal device function. [id number] Cardiac Device Check, leadless/single lead pacemaker Procedure code (CPT) selection complete EKG Details: EKG with likely atypical flutter with a ventricular rate of 71/Min. [id number], Complete Assessment & Plan Assessment & Plan (1) Paroxysmal atrial fibrillation: Code(s): I48.0 - Paroxysmal atrial fibrillation Category: Medical Plan: History of prior cardioversions and ablations. Last cardioversion was in July 2024 for atrial flutter with rapid rate. Was maintained on amiodarone but now stopped because of abnormal thyroid function. Has already seen EP but ablation has been postponed because of other medical issues and hospitalizations. He states it is now scheduled in August and advised him to keep him keep that appointment. With CKD history, he will not be suitable for other antiarrhythmics like sotalol or Tikosyn. Multaq cannot be used because of heart failure. Hence not much of options apart from waiting for the ablation. (2) (HFpEF) heart failure with preserved ejection fraction: Code(s): I50.30 - Unspecified diastolic (congestive) heart failure Category: Medical Plan: He is on Bumex. He might going to some heart failure because of recurring atrial flutter. May have to adjust the dose accordingly. Patient states that he is getting labs through [facility] very soon. (3) Presence of Watchman left atrial appendage closure device: Code(s): Z95.818 - Presence of other cardiac implants and grafts Category: Medical Plan: Remains on aspirin. (4) Obstructive sleep apnea: Code(s): G47.33 - Obstructive sleep apnea (adult) (pediatric) Category: Medical Plan: On BiPAP. (5) Pacemaker: Code(s): Z95.0 - Presence of cardiac pacemaker Category: Medical Plan: Have requested several times in the past to maintain remote monitoring. However, unable to do this. Plan Patient's care is quite complicated because of seeing different providers in various health systems and very difficult to coordinate all of this information. He is well aware of the issues. Orders: Orders CA echo transthoracic complete Today I50.30 - Unspecified diastolic (congestive) heart failure Coding Level of Care Code Est Pt Level 4 (63093) Complex EM visit Add On G2211 Diagnoses Paroxysmal atrial fibrillation I48.0 (HFpEF) heart failure with preserved ejection fraction I50.30 Presence of Watchman left atrial appendage closure device Z95.818 Obstructive sleep apnea G47.33 Pacemaker Z95.0 CPT Codes Cardiac Device Check - Cardiac Device 1: [id number] Cardiac Device Check, leadless/single lead pacemaker ([id number]) EKG - CPT: 46022-[id number], Complete ([id number])
[2025-07-12 15:13] VITALS: BP 124/58; PULSE 71
--- OUTSIDE RECORDS SUMMARY | 2025-07-12 17:45 | XMS_ITS | Clinical Summary ---
Author Organization Formerly [facility] Address [address] [place] [address] Care Team Providers Care Unionmelt Operator Name Role Phone Lee Fabian MD Primary Care Provider Unavail able Vitaliy Fields MD Unavailable [phone] Dallas Camejo MD Unavailable Rolando Lopez MD Unavailable [phone] Cesar Fair MD Unavailable Daisy Her PT Unavailable [phone] Ena Mtz MD Unavailable Toni aRe MD Unavailable [phone] System, Provider Not In Unavailable Unavaila Manuel Soler MD Unavailable Allergies Active Allergy Reactions Criticality Noted Date Comments Lisinopril Other (See Comments) 09/03/2024 Dehydration Medications bumetanide (BUMEX) 2 MG tablet Take 1 tablet (2 mg total) by mouth every morning. Active Jardiance 25 MG tablet Take 1 tablet (25 mg total) by mouth every morning. 05/06/20 24 Active donepezil (ARICEPT) 10 MG tablet Take 1 tablet (10 mg total) by mouth every morning. 10/20/19 24 Active glipiZIDE (GLUCOTROL) 2.5 mg tablet Take 1 tablet (2.5 mg total) by mouth 2 times a day. Was instructed by D[place]en to stop Glipizide once he resumes Mounashleero 03/10/20 24 Active metoPROLOL TARTRATE (LOPRESSOR) 50 MG tablet Take 1 tablet (50 mg total) by mouth 2 times a day. Active melatonin 10 MG Tab tablet Take 10 mg by mouth nightly. Active Nicotine 21-14-7 MG/24HR Kit Place 1 patch on the skin daily. 05/24/20 24 Active metFORMIN (GLUCOPHAGE) 500 MG tablet Take 1 tablet (500 mg total) by mouth every morning with breakfast. Active amLODIPine (NORVASC) 5 MG tabletIndications: Endocarditis Take 1 tablet (5 mg total) by mouth daily. 30 tablet 11/25/19 25 Active Additional Information Patient taking differently:5 mg OralEvery morning, Reason: Other, Reported on 05/16/2025 SUPPLY DME MISCIndications:Be low-knee amputation of left lower extremity, initial encounter ([facility]) BELOW KNEE PROSTHESIS S/P LEFT BKA 11/05/24 1 each 12/02/19 25 Active PANTOprazole (PROTONIX) 40 MG EC tabletIndications: Gastroesophageal reflux disease without esophagitis Take 1 tablet (40 mg total) by mouth daily. 30 tablet 12/17/19 25 Active Additional Information Patient taking differently:40 mg OralEvery morning, Reason: Other, Reported on 05/16/2025 SUPPLY DME MISCIndications:Pr imary osteoarthritis of right knee Right hinged knee brace 1 each 01/19/20 25 Active amoxicillin (AMOXIL) 500 MG capsule Take 4 capsules (2,000 mg total) by mouth as needed. Prior to Dental Appt Active Blood Glucose Monitoring Suppl (ONE TOUCH ULTRA 2 DEVICE KIT) w/Device Kit USE TO CHECK BLOOD SUGAR TWICE DAILY 02/11/20 25 Active FuelCell Energy IncTouch Ultra Test test strip 1 test strip by Other (specify) route as needed. 03/02/20 25 Active Lancets (FuelCell Energy IncTouch Delica Plus [id number]) Misc USE TO CHECK BLOOD SUGAR TWICE DAILY 02/11/20 25 Active memantine (NAMENDA) 5 MG tablet Take 1 tablet (5 mg total) by mouth 2 times a day. 03/09/20 25 Active pravastatin (PRAVACHOL) 20 MG tablet Take 1 tablet (20 mg total) by mouth every morning. Active pregabalin (LYRICA) 150 MG capsule Take 1 capsule (150 mg total) by mouth 2 (two) times a day. Active ferrous sulfate 325 (65 FE) MG tablet Take 1 tablet (325 mg total) by mouth daily. Take 2 hours before or 4 hours after acid reducers. Active levothyroxine (SYNTHROID, LEVOTHROID) 100 MCG tablet Take 1 tablet (100 mcg total) by mouth daily on an empty stomach. 04/15/20 25 Active Mounjaro 5 MG/0.5ML pen-injector Inject 1 Pen (5 mg total) under the skin once a week. Sundays04/15/20 25 Active Cholecalciferol 50 MCG (2000 UT) Tab Take 2,000 Units by mouth. 05/12/20 026 Active aspirin enteric coated (ECOTRIN LOW STRENGTH) 81 MG EC tabletIndications: Osteoarthritis of right knee, unspecified osteoarthritis type Take 1 tablet (81 mg total) by mouth 2 (two) times a day. No other aspirin products while in use. Resume aspirin products after completion. 56 tablet 05/17/20 25 Active acetaminophen (TYLENOL) 325 MG tabletIndications: Osteoarthritis of right knee, unspecified osteoarthritis type Take 3 tablets (975 mg total) by mouth 4 times daily (every 6 hours) as needed for mild pain. 168 tablet 05/17/20 25 Active polyethylene glycol (miraLAx) 17 g packetIndications: Osteoarthritis of right knee, unspecified osteoarthritis type Take 1 packet (17 g total) by mouth daily. 30 packet 05/17/20 25 Active senna-docusate (SENNA-S) 8.6-50 MGIndications:Oste oarthritis of right knee, unspecified osteoarthritis type Take 2 tablets by mouth daily as needed for constipation. 14 tablet 05/17/20 25 Active methocarbamol (ROBAXIN) 750 MG tabletIndications: Osteoarthritis of right knee, unspecified osteoarthritis type Take 1 tablet (750 mg total) by mouth 4 (four) times a day as needed for muscle spasms. 40 tablet 06/07/20 25 Active HYDROmorphone (DILAUDID) 2 MG tabletIndications: Osteoarthritis of right knee, unspecified osteoarthritis type Take 1 tablet (2 mg total) by mouth every 4 (four) hours as needed for severe pain. Max Daily Amount: 12 mg 40 tablet 06/07/20 25 Active SUPPLY DME MISCIndications:S/ P TKR (total knee replacement), right LEFT PROSTHETIC SOCKS [facility] FAX: [phone] 1 each 06/20/20 25 Active cephalexin (KEFLEX) 500 MG capsuleIndications :S/P TKR (total knee replacement), right Take 2 capsules (1,000 mg total) by mouth 2 (two) times a day. 28 capsule 06/07/20 25 025 cephalexin (KEFLEX) 500 MG capsuleIndications :S/P TKR (total knee replacement), right Take 2 capsules (1,000 mg total) by mouth 2 (two) times a day. 28 capsule 07/04/20 25 025 Active Problems Problem Noted Date Diagnosed Date Dementia 05/17/2025 Assessment & Plan (05/17/2025 10:30 AM EDT): - Continue Aricept and memantine. Mental status at baseline Hypothyroidism 05/17/2025 Assessment & Plan (05/17/2025 10:30 AM EDT): -Resume synthroid Knee osteoarthritis 05/16/2025 Type 2 diabetes mellitus wit h foot ulcer, without long-term current use of insulin 04/22/2025 Amputation of left lower extremity below knee Bacteremia 11/06/2024 Presence of permanent cardiac pacemaker 11/06/19 Mitral valve vegetation 11/06/2024 Mitral valve regurgitation 11/06/2024 Acute osteomyelitis of left calcaneus 11/02/2024 Pacemaker infection 11/02/2024 Endocarditis 11/02/2024 Assessment & Plan (04/22/2025 11:24 AM EDT): With infection of pacemaker and mitral valve. Pacemaker replaced with Micra leadless pacemaker. S/p 6 weeks of IV daptomycin and IV ceftriaxone finished 12/28/24. Follows with [facility] ID. ? Repeat echo CKD (chronic kidney disease) 09/16/2024 Osteomyelitis 09/10/2024 Assessment & Plan (04/22/2025 11:33 AM EDT): Left foot s/p left BKA and right TMA. Has completed 6 weeks of IV antibiotics as detailed above on 12/28/24. Acute osteomyelitis of right ankle or foot 09/03 Assessment & Plan (09/03/2024 9:31 AM EST): Plan for ANKLE PARTIAL CALCANEAL EXOSTECTOMY - Left & APPLICATION OF WOUND VAC - Left with Dr. Camejo on 09/10/24. Osteomyelitis, infection with MDRO organism ESBL E coli ? Hold pre op antibiotics Chronic diastolic congestive heart failure 04/28 Assessment & Plan (05/17/2025 10:30 AM EDT): - Chronic, euvolemic and stable. - Continue home regimen of amlodipine, Bumex, metoprolol and Jardiance with strict I's and O's and daily weights. Not on anticoagulation as an outpatient. - Outpatient cardiology follow-up Assessment & Plan (04/22/2025 11:05 AM EDT): Patient instructed to hold Bumex the day of surgery. Hospitalized 04/05/25-04/07/25 for CHF exacerbation. Awaiting cardiology appt date. Assessment & Plan (09/03/2024 2:03 PM EST): Patient instructed to hold Bumex the day of surgery. Memory loss 04/28/2024 Assessment & Plan (04/22/2025 11:16 AM EDT): Continue namenda & aricept. Charcot's joint of right foot 09/29/2014 Hypertension Assessment & Plan (05/17/2025 10:30 AM EDT): - Chronic, euvolemic and stable. - Continue home regimen of amlodipine, Bumex, metoprolol and Jardiance with strict I's and O's and daily weights. Not on anticoagulation as an outpatient. - Outpatient cardiology follow-up Assessment & Plan (04/22/2025 11:05 AM EDT): ? Controlled. Continue amiodarone & metoprolol. Patient instructed to hold Bumex the day of surgery. Assessment & Plan (09/03/2024 8:13 AM EST): ? Controlled. Continue amiodarone & metoprolol. Patient instructed to hold Bumex the day of surgery. Paroxysmal atrial fibrillation Assessment & Plan (05/17/2025 10:30 AM EDT): - Chronic, euvolemic and stable. - Continue home regimen of amlodipine, Bumex, metoprolol and Jardiance with strict I's and O's and daily weights. Not on anticoagulation as an outpatient. - Outpatient cardiology follow-up Assessment & Plan (04/22/2025 11:12 AM EDT): AFlutter Continue Amiodarone & metoprolol. Eliquis anticoagulant plan as below. Extensive history of ablations. See cardiology note dated - Assessment & Plan (09/03/2024 8:13 AM EST): Continue Amiodarone & metoprolol. Eliquis anticoagulant plan as below. CHADSVASC score is . PAD (peripheral artery disease) Assessment & Plan (04/22/2025 11:06 AM EDT): S/p partial right foot amputation with continued difficulties with recurrent wounds. ?Details Assessment & Plan (09/03/2024 8:12 AM EST): ? Vascular MERVIN treated with BiPAP Overview (09/03/2024): BiPap Assessment & Plan (05/17/2025 10:30 AM EDT): - Continue nocturnal BiPAP as tolerated. Postop HH MERVIN protocol Assessment & Plan (04/22/2025 11:06 AM EDT): Continue BiPap and monitor per protocol. Assessment & Plan (09/03/2024 8:12 AM EST): ? CPAP Type 2 diabetes mellitus wit hout complication, without long-term current use of insulin Overview (09/03/2024): TYPE II Assessment & Plan (05/17/2025 10:30 AM EDT): - Recent hemoglobin A1c of 7.4. On metformin, glipizide, Jardiance and Mounjaro as outpatient. Lispro sliding scale for coverage here and can resume home regimen at discharge Assessment & Plan (04/22/2025 11:09 AM EDT): Type 2. A1c PENDING. Patient instructed to hold metformin & glipizide the day of surgery. Last dose of Jardiance is Patient takes Mounjaro on DAY. Instructions for preoperative clear liquid diet given. Assessment & Plan (09/03/2024 8:14 AM EST): Type 2. A1c PENDING. Patient instructed to hold glipizide the day of surgery. Last dose of Jardiance is 09/06/24. Stage 3a chronic kidney disease Assessment & Plan (05/17/2025 10:30 AM EDT): - Creatinine of 1.6 today, stable and at baseline. Baseline creatinine is 1.6- 1.8. Avoid any nephrotoxic medications or IV contrast and NSAIDs Assessment & Plan (04/22/2025 11:13 AM EDT): Creatinine 1.4 GFR 55. Avoid nephrotoxic medications. Follows with Dr. Lopez in [place]. See last note 06/07/24. Assessment & Plan (09/03/2024 9:20 AM EST): Creatinine 1.4 GFR 55. Avoid nephrotoxic medications. Follows with Dr. Lopez in [place]. See last note 06/07/24. Hyperlipidemia Assessment & Plan (04/22/2025 11:12 AM EDT): Continue pravastatin. Assessment & Plan (09/03/2024 9:20 AM EST): Continue pravastatin. Smoker Assessment & Plan (04/22/2025 11:13 AM EDT): ? Nicotine patch Assessment & Plan (09/03/2024 9:21 AM EST): Smoking? Complete AV block Assessment & Plan (04/22/2025 11:09 AM EDT): S/p pacemaker & watchman device. No remote monitoring per last cardiology note. Cardiology appt pending. Assessment & Plan (09/03/2024 9:22 AM EST): S/p pacemaker & watchman device. No remote monitoring per last cardiology note. Cardiology appt pending. Atrial flutter GERD (gastroesophageal reflux disease) Assessment & Plan (04/22/2025 11:11 AM EDT): Continue pantoprazole. GI bleed Overview (04/22/2025): remote hx Assessment & Plan (04/22/2025 11:11 AM EDT): Details? Anemia Assessment & Plan (04/22/2025 11:12 AM EDT): Continue oral iron. 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 Encounters Date Type Department Care Team Description 07/04/2025 Orders Only [facility] [address] [phone] Manuel Mesa MD S/P TKR (total knee replacement), right (Primary Dx) 07/04/2025 Refill [facility] [address] [id number] Manuel Mesa MD S/P TKR (total knee replacement), right (Primary Dx) 06/28/2025 8:15 AM EDT [facility] [address] [address] Manuel Mesa MD S/P TKR (total knee replacement), right (Primary Dx) 06/20/2025 Orders Only [facility] [address] [address] Dallas Camejo MD S/P TKR (total knee replacement), right (Primary Dx) 06/07/2025 2:15 PM EDT [facility] [address] [address] Manuel Mesa MD S/P TKR (total knee replacement), right (Primary Dx); Osteoarthritis of right knee, unspecified osteoarthritis type 06/07/2025 2:10 PM EDT Ancillary Procedure [facility] [address] [address] 05/23/2025 [facility]ill [facility] [address] [address] Manuel Mesa MD Osteoarthritis of right knee, unspecified osteoarthritis type 05/16/2025 8:30 AM EDT Anesthesia Event [facility] at [address] [phone] Krystin Campos MD Mock, Casey, SRNA 05/16/2025 8:00 AM EDT - 05/16/2025 10:30 AM EDT Surgery [facility] [place] at [address] [phone] Manuel Mesa MD ARTHROPLASTY TOTAL KNEE 05/16/2025 5:54 AM EDT - 05/17/2025 12:23 PM EDT Hospital Encounter [facility] [address] [place] [address] Manuel Mesa MD Ramachandran, Rohit, MD Osteoarthritis of right knee, unspecified osteoarthritis type (Primary Dx) Discharge Disposition: Home with Health Care Services 05/16/2025 Travel 04/22/2025 2:30 PM EDT Pre-Admission Testing [facility] [place] [address] [facility] 2[address] [place] [address] Gilda Collier APRN Preop examination (Primary Dx); Primary osteoarthritis of right knee; Chronic diastolic congestive heart failure (HCC); Primary hypertension ; PAD (peripheral artery disease); MERVIN on CPAP; Type 2 diabetes mellitus with foot ulcer, without long-term current use of insulin (HCC); Complete AV block (HCC); Gastroesophageal reflux disease, unspecified whether esophagitis present; Gastrointestinal hemorrhage, unspecified gastrointestinal hemorrhage type; Atrial fibrillation, unspecified type ([facility]); Hyperlipidemia, unspecified hyperlipidemia type ; Iron deficiency anemia, unspecified iron deficiency anemia type; Smoker; Stage 3a chronic kidney disease (CKD) ([facility]); Memory loss; Bacterial endocarditis, unspecified chronicity; ESBL (extended spectrum beta-lactamase) producing bacteria infection; Other chronic osteomyelitis of foot, unspecified laterality (HCC) 04/22/2025 Travel 04/19/2025 12:45 PM EDT Ancillary Procedure [facility] [address] [address] 04/19/2025 10:30 AM EDT [facility] [address] [address] Dallas Camejo MD Left knee pain, unspecified chronicity (Primary Dx) from Last 3 Months Social History Tobacco Use Types Packs/Day Years Used Date Smoking Tobacco: Former Cigarettes 1 29.8 1 977 - 2004 Smokeless Tobacco: Never Tobacco Cessation:Counseling Given: Not Answered Comments:Cigar smoking - quit 04/11/25; cig smoking was off and on Alcohol Use Standard Drinks/Week Comments Yes 21 (1 standard drink = 0.6 oz pure alcohol) 2 drinks/5-7 nights/advised to stop 2 weeks before surgery [facility] Utilities Answer Date Recorded In the past 12 months has th e electric, gas, oil, or water company threatened to shut off services in your home? No 11/03/2024 AUDIT-C Answer Date Recorded Q1: How often do you have a drink containing alc ohol? 2-3 times a week 05/16/2025 Q2: How many drinks containi ng alcohol do you have on a typical day when you are drinking? 1 or 2 05/16/2025 Q3: How often do you have si x or more drinks on one occasion? Never 05/16/2025 Overall Financial Resource Strain (CARDIA) Answe r [...] any time in the past 12 m [facility], were you homeless or living in a chcf (including now)? No 11/03/2024 Sex and Gender Information Value Date Recorded Sex Assigned at Male 09/03/2024 12:21 PM EST Legal Sex Male 10:12 AM EDT Gender Identity Male 09/03/2024 12:21 PM EST Sexual Orientation Heterosexual (straight) 09/10 7:58 AM EST Last Filed Vital Signs Vital Sign Reading Time Taken Comments Blood Pressure 133/64 05/17/2025 9:51 AM EDT Pulse 60 05/17/2025 9:51 AM EDT Temperature 36.3 C (97.4 F) 05/17/2025 9:51 AM EDT Respiratory Rate 16 05/17/2025 9:51 AM EDT Oxygen Saturation 97% 05/17/2025 9:51 AM EDT Inhaled Oxygen Concentration - - Weight 132 kg (290 lb 9.1 oz) 05/16/2025 12:23 P M EDT Height 190.5 cm (6' 3 ) 05/16/2025 12:23 PM EDT Body Mass Index 36.32 05/16/2025 12:23 PM EDT Plan of Treatment Upcoming Encounters Date Type Department Care Team (Late st Contact Info) Description 08/09/2025 8:15 AM EST [facility] [address] [place] [address] Manuel Mesa MD [address] [facility] [address] [place] [address] Health Maintenance Due Date Last Done Comments Hepatitis C Virus Screening 1960 Foot Exam 1970 Lipid Panel 1970 Ophthalmology Exam 1970 HIV Screening 1973 Chronic Controlled Substance Toxicology Screening 1978 Controlled Substance Agreement Initial and Annual Review 1978 Microalbumin/Creatinine Ratio Urine 1978 DTaP/Tdap/Td Vaccines (1 - Tdap) 11/30/1979 Pneumococcal Vaccines 50+ (1 of 2 - PCV) 11/30/1979 Colonoscopy 2005 Zoster (Shingles) Vaccine (1 of 2) 2010 RSV Vaccine 60 years and older and Patients (1 - Risk 60-74 years 1-dose series) 2020 Influenza Vaccine 04/29/2025 06/22/2024, , 07/08/2023, Additional history exists COVID-19 Vaccine ( season) 2025 07/08/2023, 08/15/2021, 01/16/2021, Additional history exists Chronic Controlled Substance User PDMP Review 07/05/2025 04/06/2025, 09/01/2024 Hemoglobin A1C 11/30/2025 06/02/2025, 03/30, 03/02/2025, Additional history exists Creatinine with GFR 05/17/2026 05/17/2025, 05/16/2025, 04/22/2025, Additional history exists Hepatitis B Vaccines Aged Out No long er eligible based on patient's age to complete this topic Medical Devices Implanted Type Area Salesforce Trainer Device Identifier Shelf Expiration Date Model / Serial / Lot [id number] C[employer] R 40gm Grn - [id number] Implanted:Qty : 1 on 05/16/2025 by Manuel Mesa MD at [facility] Cement Right: Knee [employer] [id number] 09/28/2029 [id number] / / [id number] Cement [employer] R 40gm Grn - [id number] Implanted:Qty : 1 on 05/16/2025 by Manuel Mesa MD at [facility] Cement Right: Knee [employer] [id number] 09/28/2029 [id number] / / [id number] Component Femoral 10 Std Knee Right Crcte Rtn Cement Persona - [id number] Implanted:Qty : 1 on 05/16/2025 by Manuel Mesa MD at [facility] Joint Prosthesis Right: Knee [employer] [id number] 01/31/2035 [id number] / / [id number] Insert Articular 8-11 G-H 11mm Knee Right Vivacit-E Persona - [id number] Implanted:Qty : 1 on 05/16/2025 by Manuel Mesa MD at [facility] Joint Prosthesis Right: Knee [employer] [id number] 06/07/2029 [id number] / / [id number] 0d Keel Right G Tibia Implanted:Qty : 1 on 05/16/2025 by Manuel Mesa MD at [facility] Joint Prosthesis Right: Knee [employer] 10/08/2034 [id number] / / [id number] Pacemaker Cardiac Micra Av2 Ldls Bndl - [id number] Implanted:Qty : 1 on 11/17/2024 by Rui Pabon MD at [facility] Pacemaker Left: Chest [employer] T [id number] 02/09/2026 [id number] / [id number] / Explanted Type Area Salesforce Trainer Device Identifier Shelf Expiration Date Model / Serial / Lot 5076-52 Lead Pacing 52cm 6.2fr 2mm 10mm Spc Sm Straight Atr Vntrc- 6 Implanted:09/30 (Quantity not on file) Explanted:Qty: 1 on 11/17/2024 by Rui Pabon MD Lead [employer] MINIMALLY INVAS[employer] T 5076-52 / [id number] / 5076-58 Lead Pacing 58cm 6.2fr 2mm 10mm Spc Sm Straight [facility] Vntrc- 6 Implanted:09/30 (Quantity not on file) Explanted:Qty: 1 on 11/17/2024 by Rui Pabon MD Lead [employer] MINIMALLY INVASIVE T 5076-58 / [id number] / [id number] Pacemaker Cardiac Advisa Dr Lewis Suresukumaran 2 Chamber Digital- [id number] Implanted:09/30 (Quantity not on file) Explanted:Qty: 1 on 11/17/2024 by Rui Pabon MD Pacemaker [employer] MINIMALLY INVASIVE T [id number] / [id number] / Procedures Procedure Name Priority Date/Time Associated Diagnosis Comments ERYTHROCYTE SEDIMENTATION RATE (ESR) Routine 07/04/2025 3:16 PM EDT S/P TKR (total knee replacement), right C-REACTIVE PROTEIN Routine 07/04/2025 3: 16 PM EDT S/P TKR (total knee replacement), right XR KNEE 3 VIEWS-RIGHT Routine 06/07/2025 2:53 PM EDT S/P TKR (total knee replacement), right POCT GLUCOSE, FINGERSTICK (CHARGE) Routine 05/17/2025 7:27 AM EDT BASIC METABOLIC PANEL Routine 05/17/2025 5:27 AM EDT POCT GLUCOSE, FINGERSTICK (CHARGE) Routine 05/17/2025 1:37 AM EDT POCT GLUCOSE, FINGERSTICK (CHARGE) Routine 05/16/2025 9:26 PM EDT POCT GLUCOSE, FINGERSTICK (CHARGE) Routine 05/16/2025 5:07 PM EDT POCT GLUCOSE, FINGERSTICK (CHARGE) Routine 05/16/2025 1:10 PM EDT ANES BLOCK - LOWER EXTREMITY Routine 05/16/2025 11:43 AM EDT POCT GLUCOSE, FINGERSTICK (CHARGE) Routine 05/16/2025 10:50 AM EDT ANES BLOCK - SPINAL Routine 05/16/2025 8 :59 AM EDT TN ARTHRP KNE CONDYLE&PLATU MEDIAL&LAT COMPARTMENTS 05/16/2025 8:15 AM EDT Primary osteoarthritis of right knee Special Needs SPINAL, REGIONAL BLOCK, PA ASSIST, RETRACTOR SCHWARZ, PERSONA CEMENTED, (pt needs Hillrom/Show Card Letterer Bed) POCT GLUCOSE, FINGERSTICK (CHARGE) Routine 05/16/2025 7:19 AM EDT BASIC METABOLIC PANEL Routine 05/16/2025 7:15 AM EDT ECG 12-LEAD Routine 05/16/2025 6:56 AM EDT ECG 12-LEAD 04/27/2025 TRANSFERRIN Routine 04/22/2025 2:35 PM EDT Preop examination Primary osteoarthritis of right knee Chronic diastolic congestive heart failure (HCC) Primary hypertension PAD (peripheral artery disease) MERVIN on CPAP Type 2 diabetes mellitus with foot ulcer, without long-term current use of insulin (HCC) Complete AV block (HCC) Gastroesophageal reflux disease, unspecified whether esophagitis present Gastrointestinal hemorrhage, unspecified gastrointestinal hemorrhage type Atrial fibrillation, unspecified type (HCC) Hyperlipidemia, unspecified hyperlipidemia type Iron deficiency anemia, unspecified iron deficiency anemia type Smoker Stage 3a chronic kidney disease (CKD) (HCC) Memory loss Bacterial endocarditis, unspecified chronicity ESBL (extended spectrum beta-lactamase) producing bacteria infection Other chronic osteomyelitis of foot, unspecified laterality (HCC) PREALBUMIN Routine 04/22/2025 2:35 PM EDT Preop examination Primary osteoarthritis of right knee Chronic diastolic congestive heart failure (HCC) Primary hypertension PAD (peripheral artery disease) MERVIN on CPAP Type 2 diabetes mellitus with foot ulcer, without long-term current use of insulin (HCC) Complete AV block (HCC) Gastroesophageal reflux disease, unspecified whether esophagitis present Gastrointestinal hemorrhage, unspecified gastrointestinal hemorrhage type Atrial fibrillation, unspecified type (HCC) Hyperlipidemia, unspecified hyperlipidemia type Iron deficiency anemia, unspecified iron deficiency anemia type Smoker Stage 3a chronic kidney disease (CKD) (HCC) Memory loss Bacterial endocarditis, unspecified chronicity ESBL (extended spectrum beta-lactamase) producing bacteria infection Other chronic osteomyelitis of foot, unspecified laterality (HCC) HEMOGLOBIN A1C WITH ESTIMATED AVERAGE GLUCOSE Routine 04/22/2025 2:35 PM EDT Preop examination Primary osteoarthritis of right knee Chronic diastolic congestive heart failure (HCC) Primary hypertension PAD (peripheral artery disease) MERVIN on CPAP Type 2 diabetes mellitus with foot ulcer, without long-term current use of insulin (HCC) Complete AV block (HCC) Gastroesophageal reflux disease, unspecified whether esophagitis present Gastrointestinal hemorrhage, unspecified gastrointestinal hemorrhage type Atrial fibrillation, unspecified type (HCC) Hyperlipidemia, unspecified hyperlipidemia type Iron deficiency anemia, unspecified iron deficiency anemia type Smoker Stage 3a chronic kidney disease (CKD) (HCC) Memory loss Bacterial endocarditis, unspecified chronicity ESBL (extended spectrum beta-lactamase) producing bacteria infection Other chronic osteomyelitis of foot, unspecified laterality (HCC) BASIC METABOLIC PANEL Routine 04/22/2025 2:35 PM EDT Preop examination Primary osteoarthritis of right knee Chronic diastolic congestive heart failure (HCC) Primary hypertension PAD (peripheral artery disease) MERVIN on CPAP Type 2 diabetes mellitus with foot ulcer, without long-term current use of insulin (HCC) Complete AV block (HCC) Gastroesophageal reflux disease, unspecified whether esophagitis present Gastrointestinal hemorrhage, unspecified gastrointestinal hemorrhage type Atrial fibrillation, unspecified type (HCC) Hyperlipidemia, unspecified hyperlipidemia type Iron deficiency anemia, unspecified iron deficiency anemia type Smoker Stage 3a chronic kidney disease (CKD) (HCC) Memory loss Bacterial endocarditis, unspecified chronicity ESBL (extended spectrum beta-lactamase) producing bacteria infection Other chronic osteomyelitis of foot, unspecified laterality (HCC) COMPLETE BLOOD COUNT, WITH DIFFERENTIAL Routine 04/22/2025 2:35 PM EDT Preop examination Primary osteoarthritis of right knee Chronic diastolic congestive heart failure (HCC) Primary hypertension PAD (peripheral artery disease) MERVIN on CPAP Type 2 diabetes mellitus with foot ulcer, without long-term current use of insulin (HCC) Complete AV block (HCC) Gastroesophageal reflux disease, unspecified whether esophagitis present Gastrointestinal hemorrhage, unspecified gastrointestinal hemorrhage type Atrial fibrillation, unspecified type (HCC) Hyperlipidemia, unspecified hyperlipidemia type Iron deficiency anemia, unspecified iron deficiency anemia type Smoker Stage 3a chronic kidney disease (CKD) (HCC) Memory loss Bacterial endocarditis, unspecified chronicity ESBL (extended spectrum beta-lactamase) producing bacteria infection Other chronic osteomyelitis of foot, unspecified laterality (HCC) NASAL MRSA SCREEN, PCR Routine 04/22/2025 2:35 PM EDT Preop examination Primary osteoarthritis of right knee Chronic diastolic congestive heart failure (HCC) Primary hypertension PAD (peripheral artery disease) MERVIN on CPAP Type 2 diabetes mellitus with foot ulcer, without long-term current use of insulin (HCC) Complete AV block (HCC) Gastroesophageal reflux disease, unspecified whether esophagitis present Gastrointestinal hemorrhage, unspecified gastrointestinal hemorrhage type Atrial fibrillation, unspecified type (HCC) Hyperlipidemia, unspecified hyperlipidemia type Iron deficiency anemia, unspecified iron deficiency anemia type Smoker Stage 3a chronic kidney disease (CKD) (HCC) Memory loss Bacterial endocarditis, unspecified chronicity ESBL (extended spectrum beta-lactamase) producing bacteria infection Other chronic osteomyelitis of foot, unspecified laterality (HCC) XR KNEE 1 OR 2 VIEWS-LEFT Routine 04/19/2025 12:58 PM EDT Left knee pain, unspecified chronicity from Last 3 Months Results * Erythrocyte Sedimentation Rate (ESR) (07/04/2025 3:16 PM EDT) Pathologist [facility] Erythrocyte Sediment Rate (ESR) 11 < OR = 20 mm/h [facility] Blood Blood specimen / Unknown 07/04/2025 3:16 PM EDT 07/04/2025 3:17 PM EDT Narrative [facility] - 07/05/2025 9:04 AM EDT FASTING:NO FASTING: NO Manuel Mesa MD LAB BLOOD ORDERABLES Fin al Result Performing Organization Address [facility] de Phone Number [facility] [address] [place] [phone] * (ABNORMAL) C-REACTIVE PROTEIN (07/04/2025 3:16 PM EDT) Pathologist [facility] C-Reactive Protein 20.6(H) <8.0 mg/L [facility] Blood Blood specimen / Unknown 07/04/2025 3:16 PM EDT 07/04/2025 3:17 PM EDT Narrative [facility] - 07/05/2025 9:04 AM EDT FASTING:NO FASTING: NO Manuel Mesa MD LAB BLOOD ORDERABLES Fin al Result Performing Organization Address [facility] de Phone Number [facility] [address] [place] [phone] * XR Knee 3 views-Right (06/07/2025 2:53 PM EDT) Narrative [facility] - 06/07/2025 2:53 PM EDT This exam was performed in office at [facility] and images reviewed by orthopedic provider. Any findings are documented within ambulatory encounter note on date of service. Manuel Mesa MD IMG DIAGNOSTIC IMAGING O RDERABLES Final Result Performing Organization Address [facility] Co de Phone Number [facility] * (ABNORMAL) POCT Glucose, Fingerstick (05/17/2025 7:27 AM EDT) Only the most recent of7 resultswithin the time period is included. POC Glucose 160(H) 65 - 99 mg/dL 05/17/2025 7:32 AM EDT Blood specimen / Unknown 05/17/2025 7:27 AM EDT 05/17/2025 7:32 AM EDT us Manuel Mesa MD POINT OF CARE TEST ORDER JOSE Final Result HOSPITAL LAB See Below * (ABNORMAL) Basic Metabolic Panel (05/17/2025 5:27 AM EDT) Only the most recent of3 resultswithin the time period is included. Glucose 157(H) 65 - 99 mg/dL 05/17/2025 6:19 AM [facility] Comment:Fasting: <100 mg/dL, Non-Fasting: <200 mg/dL (ADA 2004) Blood Urea Nitrogen (BUN) 29(H) 8 - 21 mg/dL 05/17/2025 6:19 AM [facility] Creatinine 1.6(H) 0.5 - 1.3 mg/dL 05/17/2025 6:19 AM [facility] eGFR 48(L) >59 05/17/2025 6:19 AM [facility] Comment:CKD-EPI (2020) in mL /min/1.73 sq meters. Sodium 138 136 - 145 mmol/L 05/17/2025 6:19 AM [facility] Potassium 3.9 3.4 - 5.3 mmol/L 05/17/2025 6:19 AM [facility] Chloride 104 98 - 107 mmol/L 05/17/2025 6:19 AM [facility] CO2 24 22 - 33 mmol/L 05/17/2025 6:19 AM [facility] Anion Gap 10 7 - 17 05/17/2025 6:19 AM [facility] Calcium 8.7 8.7 - 10.5 mg/dL 05/17/2025 6:19 AM EDT [facility] BUN/Creatinine Ratio 18 10.0 - 25.0 Ratio 05/17/2025 6:19 AM EDT [facility] Blood Blood specimen / Unknown 05/17/2025 5:27 AM EDT 05/17/2025 5:47 AM EDT us Alice Dobbins PA-C LAB BLOOD ORDERABLES Final Resul t [address] [address], [address] [address] * Block - Lower Extremity (05/16/2025 11:43 AM EDT) Narrative Krystin Campos MD - 05/16/2025 11:43 AM EDT Krystin Campos MD 05/16/2025 2:14 PM Anesthesia Procedure Note - Lower Extremity Block Patient Name: Luca Crowe : 1960 Patient location: pre-op Referring provider: Manuel Mesa MD Reason for block: post-op pain management Procedure diagnosis: Osteoarthritis, knee Procedure Start Time: 05/16/2025 7:44 AM Procedure End Time: 05/16/2025 7:54 AM Performed by: Anesthesiologist Krystin Campos MD Chart Verification ID band applied and present Patient ID verified via arm band, verbally with patient. H&P verified: Yes Pre-op test results in chart Consents confirmed: operative, informed and anesthesia Nursing assessment complete: yes Anesthesia questionnaire complete: yes Procedure Verification/TIMEOUT Correct procedure: yes Correct patient position: yes Correct laterality: yes Correct site: yes Site/side marked: yes Sterility reviewed: yes Special equipment or implants: yes Safety precautions discussed with procedural staff: yes Preanesthetic Checklist Monitors and equipment checked Patient pre-procedure mental status: awake The patient was sedated prior to procedure. Patient state at time: moderate Patient Preprocedure Preparation Skin prep: 2% chlorhexidine-completely dried prior to procedure Hand hygeine performed prior to needle/catheter insertion Sterile barriers in place: Cap, gloves and mask Procedure Details Block A: iPACK (posterior capsule) - single-shot technique Short-bevel needle, 22 g, 80 mm Laterality right Block B: adductor canal - single-shot Short-bevel needle, 22 g, 80 mm Laterality right Block C: obturator nerve (anterior & posterior branch obturator) - single-shot Short-bevel needle,22 g, 80 mm Laterality right Block D: lateral femoral cutaneous nerve - single-shot short-bevel needle, 22 g, 80 mm Laterality right Technique(s): ultrasound guidance and nerve stimulator Outcomes Result: successful block Outcome: block complete Patient tolerated procedure well. Additional Comments: Nerve block requested by surgeon for post-op analgesia. Pre-block timeout performed. Meaningful patient verbal communication maintained throughout the procedure. Posterior capsule (IPACK) - USN guided medial to lateral approach, appropriate local anesthetic spread pattern between popliteal artery and femur. Needle tip visualized throughout and not advanced lateral to popliteal vasculature. No USN evidence of perineural spread. Adductor canal block - USN guided mid-thigh approach at the beginning of the adductor canal identified by the confluence of the sartorius and adductor longus muscles medial to the superficial femoral artery. USN transducer moved laterally to the superficial femoral artery while maintaining the same level on the thigh. Needle advanced in plane under continuous ultrasound guidance of needle and needle tip with nerve stimulation. Nerve to vastus medialis identified via ultrasound and needle advanced until a stimulation was elicited with a nerve stimulator to confirm its identity. Needle then withdrawn until stimulation no longer occurs and keeping needle proximal to nerve but not intraneuronal and local anesthetic injected with an appropriate subsartorial spread pattern. No nerve swelling noted post-injection, no pain or paresthesia reported by patient. Immediately after identifying and injecting local around the vastus medialis nerve, the needle withdrawn and then advanced more superficially while still stimulating to avoid penetration of the vastus medialis nerve under direct ultrasound visualization of the needle tip. Needle advanced lateral to artery and local anesthetic injected under low pressure avoiding intraneuronal injection of the saphenous nerve. No nerve swelling noted post-injection, no pain or paresthesia reported by patient. Obturator - USN guided block of both anterior & posterior division of the nerve in the planes between adductor longus/brevis and adductor brevis/price, respectively. Needle advanced under continuous in-plane ultrasound visualization, visualizing the needle tip at all times, low pressure injection with 10ml syringe, stayed proximal to nerves without penetrating them, nerve stimulation used to confirm the ultrasound image of the nerve, and needle withdrawn slightly to ensure that the needle was not intraneuronal and local injected. No nerve swelling noted post-injection, no pain or paresthesia reported by patient, who was communicative throughout the procedure. Lateral femoral cutaneous nerve block - USN guided identification of lateral femoral cutaneous nerve superficial to and lateral to sartorius muscle. Nerve confirmed with an twitch monitor eliciting a tapping sensation in the lateral thigh and then withdrawn to avoid an intraneuronal injection. Needle advanced under direct in plane ultrasound visualization, low pressure injection with 10ml syringe, stayed proximal to nerve without penetrating it, no paresthesias, no nerve swelling noted after injection. All blocks administered with low pressure, incremental injection with 10 mL syringe. Negative aspiration noted every 3-5mL. us Krystin Campos MD [place] ANESTHESIA Edited Result - Final * Block - Spinal (05/16/2025 8:59 AM EDT) Narrative Krystin Campos MD - 05/16/2025 8:59 AM EDT Krystin Campos MD 05/17/2025 8:17 AM Anesthesia Procedure Note - Spinal Block Patient Name: Luca Crowe : 1960 Patient location: OR Reason for block: primary anesthetic Procedure diagnosis: Osteoarthritis Spinal Procedure Start Time: 05/16/2025 8:40 AM Spinal Procedure End Time: 05/16/2025 8:42 AM Performed by: MD Yadiel George [facility] Chart Verification ID band applied and present Patient ID verified via arm band, verbally with patient. H&P verified: Yes Pre-op test results in chart Consents confirmed: operative and anesthesia Nursing assessment complete: yes Anesthesia questionnaire complete: yes Procedure Verification/TIMEOUT Correct procedure: yes Correct patient position: yes Correct laterality: yes Correct site: yes Site/side marked: yes Sterility reviewed: yes Safety precautions discussed with procedural staff: yes Preanesthetic Checklist monitors and equipment checked. Patient's pre-procedure mental status: awake The patient was sedated prior to procedure. Current level of sedation: moderate Procedure Preparation Skin prep: 2% chlorhexidine - completely dried prior to procedure Hand hygeine performed prior to needle/catheter insertion Sterile barriers in place: cap, gloves and mask Spinal Block Patient position: sitting Monitoring: continuous pulse ox and frequent blood pressure checks The skin was infiltrated with Lidocaine 1%. Level: L2-3 Injection technique: single-shot Needle: Pencan, 25 g, Needle length: 4 Number of attempts: 1 Assessment Sensory level: T10 Additional Comments: Pre-block time out performed. Skin wheal placed with Lidocaine 1% (Plain) infiltration. Spinal needle advanced to clear CSF flow with good swirl on aspiration. NO Heme; NO Paresthesias. Easy aspiration at the end of injection. Patient tolerated the procedure well. Patient noted to be comfortable with surgical incision. us Deep Brown MD [place] ANESTHESIA Final Result * ECG 12 lead (05/16/2025 6:56 AM EDT) Only the most recent of2 resultswithin the time period is included. Ventricular rate 63 BPM EKG [facility] Atrial rate 56 BPM EKG [facility] QRS duration 186 ms EKG [facility] Q-T interval 506 ms EKG [facility] QTC calculation (Bazett) 517 ms EKG [facility] R axis 59 degrees EKG [facility] T axis 49 degrees EKG [facility] 05/16/2025 6:56 AM EDT Narrative EKG [facility] - 05/16/2025 9:46 PM EDT Ventricular paced rhythm Abnormal ECG When compared with ECG of 07-Nov-2024 14:58, No significant changes Confirmed by MD Ramires Norman ([id number]) on 05/16/2025 9:46:52 PM Procedure Note Zoltan Ramires MD - 05/16/2025 Ventricular paced rhythm Abnormal ECG When compared with ECG of 07-Nov-2024 14:58, No significant changes Confirmed by MD Ramires Norman ([id number]) on 05/16/2025 9:46:52 PM us Manuel Mesa MD ECG ORDERABLES Final [facility]ult [facility] * (ABNORMAL) Hemoglobin A1c with Estimated Average Glucose (04/22/2025 2:35 PM EDT) Hemoglobin A1C 7.4(H) <5.7 % 04/22/2025 9:15 PM EDT [facility] Comment: A1c% Interpretation 5.7 - 6.0 Increase risk of diabetes 6.1 - 6.4 Higher risk of diabetes > or = 6.5 Consistent with diabetes Diabetes Care, 33(Supp 1):S1-S61, 2010 Estimated Average Glucose 166 mg/dL 04/22/2025 9:15 PM EDT [facility] Blood Blood specimen / Unknown 04/22/2025 2:35 PM EDT 04/22/2025 8:36 PM EDT us Gilda Collier BUSINESS COMPUTERS TEACHER LAB BLOOD [place] [address], [address] [address] * (ABNORMAL) Complete Blood Count, with Differential (04/22/2025 2:35 PM EDT) White Blood Cell Count 7.0 4.0 - 11.0 Thou/uL 04/22/2025 9:00 PM [facility] Platelet Count 286 150 - 450 Thou/uL 04/22/2025 9:00 PM [facility] Hemoglobin 13.3 13.0 - 17.7 g/dL 04/22/2025 9:00 PM [facility] Hematocrit 38.8(L) 39.0 - 54.0 % 04/22/2025 9:00 PM [facility] Red Blood Cell Count 4.14(L) 4.50 - 6.20 Mil/uL 04/22/2025 9:00 PM [facility] MCV 94 80 - 100 fL 04/22/2025 9:00 PM [facility] MCH 32.1(H) 27.0 - 31.0 pg 04/22/2025 9:00 PM [facility] MCHC 34.3 30.0 - 36.0 g/dL 04/22/2025 9:00 PM EDT [facility] RDW 15.5(H) 11.5 - 14.5 % 04/22/2025 9:00 PM EDT [facility] MPV 11.4 7.5 - 12.5 fL [facility] Auto 71.4 % 04/22/20 9:00 PM EDT [facility] Immature Granulocytes 0.9 % 04/22/2025 9:00 PM EDT [facility] Lymphocytes Auto 15.8 % 04/22/20 9:00 PM EDT [facility] Monocytes Auto 10.3 % 04/22/2025 9:00 PM EDT [facility] Eosinophils Auto 1.0 % 04/22/20 9:00 PM [facility] Basophils Auto 0.6 % 04/22/2025 9:00 PM [facility] Abs Neutrophils Auto 5.01 2.00 - 7.50 Thou/uL [facility] Immature Granulocytes 0.06 0.00 - 0.10 Thou/uL 04/22/2025 9:00 PM EDT [facility] Abs Lymphocytes Auto 1.11(L) 1.50 - 4.50 Thou/uL [facility] Abs Monocytes Auto 0.72 0.20 - 1.50 Thou/uL 04/22[facility]2025 [facility] Abs Eosinophils Auto 0.07 0.00 - 0.70 Thou/uL 04/22/2025 9:00 PM EDT [facility] Abs Basophils Auto 0.04 0.00 - 0.20 Thou/uL 04/22/2025 9:00 PM [facility] Blood Blood specimen / Unknown 04/22/2025 2:35 PM EDT 04/22/2025 8:36 PM EDT us Gilda Collier BUSINESS COMPUTERS TEACHER LAB BLOOD ORDERABLES Final R esult [address] [address], [address] [address] * Nasal MRSA Screen, PCR (04/22/2025 2:35 PM EDT) MRSA Result Not Detected Not Detected 12:30 AM EDT [facility] Comment:Performed by the Xpe rt MRSA NxG Assay Swab, Nasal Specimen from nose / Unknown 04/22/2025 2:35 PM EDT 04/22/2025 8:36 PM EDT Gilda Collier APRN MICROBIOLOGY - GENERAL ORDER JOSE Final Result Performing Organization Address City/[facility]/ZIP Co de Phone Number [address] [address], [address] [address] * Transferrin (04/22/2025 2:35 PM EDT) Transferrin 261 200 - 360 mg/dL 04/22/2025 9:18 PM EDT [facility] Blood Blood specimen / Unknown 04/22/2025 2:35 PM EDT 04/22/2025 8:36 PM EDT Gilda Collier APRN LAB BLOOD ORDERABLES Final R esult Performing Organization Address [facility]/ZIP Co de Phone Number [address] [address], [address] [address] * Prealbumin (04/22/2025 2:35 PM EDT) Prealbumin 31 20 - 40 mg/dL 04/22/2025 9:18 PM EDT [facility] Blood Blood specimen / Unknown 04/22/2025 2:35 PM EDT 04/22/2025 8:36 PM EDT Gilda Collier APRN LAB BLOOD ORDERABLES Final R esult Performing Organization Address City/[facility]/ZIP Co de Phone Number [address] [address], [address] [address] * XR Knee 1 or 2 views-Left (04/19/2025 12:58 PM EDT) Narrative [facility] - 04/19/2025 12:58 PM EDT This exam was performed in office at [facility] and images reviewed by orthopedic provider. Any findings are documented within ambulatory encounter note on date of service. Dallas Camejo MD IMG DIAGNOSTIC IMAGING ORDERA BLES Final Result OA from Last 3 Months Insurance [facility] MEDICARE [facility] MEDICARE AET[employer] MGD MEDICARE Advance Directives Documents on File Type Date Recorded Patient Inventory Specialist Expl anation Advance Directive-Scan 11/10/2024 Revoc ation of Health Care Proxy HH 11/10/24 Advance Directive-Scan 11/10/2024 Healt h Care Proxy HH 11/10/24 * Full Code (Latest Code Status on File) Date Activated Date Inactivated Comments 05/16/2025 12:20 PM * Full Code Date Activated Date Inactivated Comments 05/16/2025 6:29 AM 05/16/2025 12:20 PM * Full Code Date Activated Date Inactivated Comments 11/17/2024 5:57 PM 05/16/2025 5:54 AM * Full Code Date Activated Date Inactivated Comments 11/05/2024 7:12 PM 11/17/2024 5:57 PM * Full Code Date Activated Date Inactivated Comments 11/02/2024 6:23 PM 11/05/2024 7:12 PM Healthcare Agents on File Name Relationship Healthcare Agent Relationship Communication Luca(SON) Sebastien [facility] medical customer service representative 1. Health Care Inventory Specialist Jessica Mello Healthcare medical customer service representative 1. Health Care Inventory Specialist Care Teams Unionmelt Operator Relationship Specialty Start Date End Date Lee Fabian MD PCP - General Internal Medicine 09/02/24 Vitaliy Fields MD [address] [address] Cardiovascular Disease 09/02/24 Dallas Camejo MD 7 [place] [address] Surgery, Orthopedic 09/02/24 Rolando Lopez MD [address] Transplant - Ph [address] [place] [address] Physician Nephrology 09/02/24 Cesar Fair MD 85 [facility] 9[address] [place] [address] Surgery, Cardiac 11/08/24 Daisy Her, PT 85 [facility] [address] [place] [address] Relations MgrRace And Sports Book Writer Medicine and Rehabilitation 11/18/24 Ena Mtz MD [address] [place] [address] Infectious Disease 04/12/25 Toni Rae MD [address] [place] [phone] Surgery, Vascular 04/12/25 System, Provider Not In 04/12/25 Manuel Mesa MD 31 [facility] 100 [place] [address] Physician Surgery, Orthopedic 04/19/25
--- OUTSIDE RECORDS SUMMARY | 2025-07-12 17:45 | XMS_ITS | Encounter Summary ---
Author Organization [facility] Address [address] [place] [address] Care Team Providers Care Music Autographer Name Role Phone Lee Fabian MD Primary Care Provider Unavail able Vitaliy Fields MD Unavailable [phone] Dallas Camejo MD Unavailable Rolando Lopez MD Unavailable Cesar Fair MD Unavailable Daisy eHr PT Unavailable [phone] Ena Mtz MD Unavailable Toni Rae MD Unavailable [phone] System, Provider Not In Unavailable Unavaila Manuel Soler MD Unavailable [phone] Encounter Details Date Type Department Care Team (Late st Contact Info) Description 12/15/2024 Scanned Document [facility] [address] Dallas Camejo MD [address] [place] [address] Social History Tobacco Use Types Packs/Day Years Used Date Smoking Tobacco: Former Cigarettes 1 29.8 1 977 - 2004 Smokeless Tobacco: Never Alcohol Use Standard Drinks/Week Comments Yes 21 (1 standard drink = 0.6 oz pu re alcohol) [facility] Utilities Answer Date Recorded In the past [...] No 11/03/2024 Housing Stability Vital Sign Answer Maruqez e Recorded In the last 12 months, was t here a time when you were not able to pay the mortgage or rent on time? No 11/03/2024 In the past 12 months, how m any times have you moved where you were living? 0 11/03/2024 At any time in the past 12 m [facility], were you homeless or living [...] 8:15 AM EST [facility] Visit [facility] [address] [address] Manuel Mesa MD 499 [facility] [address] [place] [address] documented as of this encounter Visit Diagnoses Not on filedocumented in this encounter Care Teams Music Autographer Relationship Specialty Start Date End Date Lee Fabian MD PCP - General Internal Medicine 09/02/24 Vitaliy Fields MD [address] [place] [address] Cardiovascular Disease 09/02/24 Dallas Camejo MD [address] [place] [address] Surgery, Orthopedic 09/02/24 Rolando Lopez MD [address] [place] [address] Transplant - 14 [place] [address] Physician Nephrology 09/02/24 Cesar Fair MD 85 [facility] 919 [place] [address] Surgery, Cardiac 11/08/24 Daisy Her, PT 85 [facility] [address] [place] [address] Printer Repair TechnicianFunding Specialist Medicine and Rehabilitation 11/18/24 Ena Mtz MD [address] [place] [address] Infectious Disease 04/12/25 Toni Rae MD [address] [place] [address] Surgery, Vascular 04/12/25 System, Provider Not In 04/12/25 Manuel Mesa MD [address] [place] [address] Physician Surgery, Orthopedic 04/19/25 documented as of this encounter
--- OUTSIDE RECORDS SUMMARY | 2025-07-12 17:45 | XMS_ITS | Clinical Summary ---
Author Organization [facility] Address [address] [place] [address] Phone Care Team Providers Care Automatic Log Cut Off Sawyer Name Role Phone Lee Fabian MD Primary Care Provider [phone] Allergies Active Allergy Reactions Criticality Noted Date Comments Lisinopril 04/14/2024 Other Reaction(s): KIDNEY DAMAGE Medications aspirin (ST SHELLI) 81 MG EC tablet Take 81 mg by mouth 4 Active bumetanide (BUMEX) 2 MG tablet Take 2 mg by mouth 9 Active donepezil (ARICEPT) 10 MG tablet Take 10 mg by mouth 1 (one) time each day Active Jardiance 10 MG tablet Take 25 mg by mouth every morning 4 Active glipiZIDE 2.5 MG tablet Take 1 tablet by mouth in the morning and 1 tablet in the evening. 4 Active Melatonin 10 MG tablet Take 10 mg by mouth Active metFORMIN (GLUCOPHAGE) 1000 MG tablet Take 500 mg by mouth 1 (one) time each day with breakfast 4 Active metoprolol succinate XL (TOPROL XL) 25 MG 24 hr tablet Take 50 mg by mouth in the morning and 50 mg in the evening. 4 Active pregabalin (LYRICA) 150 MG capsule Take 150 mg by mouth in the morning and 150 mg in the evening. Active levothyroxine (SYNTHROID, LEVOTHROID) 50 MCG tablet Take 50 mcg by mouth 1 (one) time each day 5 Active pravastatin (PRAVACHOL) 20 MG tablet Take 20 mg by mouth 1 (one) time each day Active pantoprazole (PROTONIX) 40 MG EC tablet Take 40 mg by mouth 1 (one) time each day before breakfast Do not crush, chew, or split. Active ferrous sulfate 325 (65 Fe) MG tablet Take 325 mg by mouth 1 (one) time each day with breakfast Active Cholecalciferol (Vitamin D3) 50 MCG (1999 UT) tabletIndicatio ns:Stage 3b chronic kidney disease (HCC),Vitamin D deficiency, not otherwise specified Take 2,000 Units by mouth 1 (one) time each day 30 tablet 11 5 05/12/20 26 Active Active Problems Problem Noted Date Diagnosed Date Vitamin D deficiency, not otherwise specified Stage 3a chronic kidney disease 06/01/2024 Renal osteodystrophy 06/01/2024 Type 2 diabetes mellitus wit h diabetic chronic kidney disease 04/14/2024 Stage 3b chronic kidney disease 04/14/2024 Diabetes mellitus 01/18/2011 Hypertension 01/18/2011 Encounters Date Type Department Care Team Description 05/12/2025 10:45 AM EDT Office Visit [facility] [address] [phone] Marlin Zarate ARNP Stage 3b chronic kidney disease (HCC) (Primary Dx); Hypertension; Renal osteodystrophy; Vitamin D deficiency, not otherwise specified; Acute cystitis without hematuria, not otherwise specified 04/16/2025 Orders Only [facility] [address] [phone] Rolando Lopez MD Stage 3b chronic kidney disease (HCC); Type 2 diabetes mellitus with diabetic chronic kidney disease (HCC); Renal osteodystrophy from Last 3 Months Immunizations Immunization Administration Dates Next Due Influenza (IM) Preservative Free 024,05/20/2017,06/04/2016,06/18,06/19/2010 Influenza, MDCK, PF, Quadrivalent 07/18/2022, Influenza, MDCK, Quadrivalen t, with preservative 06/17/2021,07/08/2018 Influenza, Unspecified 07/08/2023 Pfizer SARS-COV-2 07/08/2023, 1,01/16/2021,12/25 Pneumococcal Polysaccharide 01/05/2017, 6 Shingrix 04/13/2018,12/16/2017 Tdap 04/09/2020,12/16/2017 Family History Medical History Relation Comments Diabetes Mother Hypertension Sister Kidney disease Sister Relation Status Comments Mother Sister Social History Tobacco Use Types Packs/Day Years Used Date Smoking Tobacco: Former Cigarettes Tobacco Cessation:Counseling Given: Not Answered Alcohol Use Standard Drinks/Week Comments Yes 0 (1 standard drink = 0.6 oz pur e alcohol) Sex and Gender Information Value Date Recorded Sex Assigned at Not on file Legal Sex Male 4:51 PM EST Gender Identity Not on file Sexual Orientation Not on file Last Filed Vital Signs Vital Sign Reading Time Taken Comments Blood Pressure 124/74 05/12/2025 11:10 AM EDT Pulse 61 05/12/2025 10:51 AM EDT Temperature - - Respiratory Rate - - Oxygen Saturation 96% 05/12/2025 10:51 AM EDT Inhaled Oxygen Concentration - - Weight 130 kg (286 lb 6.4 oz) 05/12/2025 10:51 A M EDT Height - - Body Mass Index - - Plan of Treatment Upcoming Encounters Date Type Department Care Team (Late st Contact Info) Description 11/14/2025 10:45 AM EST Office Visit [facility] [address] [phone] Marlin Zarate ARNP [address] [phone] Health Maintenance Due Date Last Done Comments [...] 07/18/2022, Additional history exists Diabetes: Hemoglobin A1C 07/23/2025 025, 03/02/2025, 09/03/2024, Additional history exists Pneumococcal Vaccine: Peds (0 to 5 Years) and At-Risk Patients (6 to 49 Years) Discontinued 01/05/2017, 11/11/2015 Hepatitis B Vaccine Aged Out No longe r eligible based on patient's age to complete this topic Procedures Procedure Name Priority Date/Time Associated Diagnosis Comments MAGNESIUM Routine 05/10/2025 10:26 AM EDT Stage 3b chronic kidney disease (HCC) Type 2 diabetes mellitus with diabetic chronic kidney disease (HCC) Renal osteodystrophy CBC Routine 05/10/2025 10:26 AM EDT Stage 3b chronic kidney disease (HCC) Type 2 diabetes mellitus with diabetic chronic kidney disease (HCC) Renal osteodystrophy VITAMIN D 25 HYDROXY Routine 05/10/2025 10:26 AM EDT Stage 3b chronic kidney disease (HCC) Type 2 diabetes mellitus with diabetic chronic kidney disease (HCC) Renal osteodystrophy PROTEIN / CREATININE RATIO, URINE Routine 05/10/2025 10:26 AM EDT Stage 3b chronic kidney disease (HCC) Type 2 diabetes mellitus with diabetic chronic kidney disease (HCC) Renal osteodystrophy URINE ALBUMIN / CREATININE RATIO Routine 05/10/2025 10:26 AM EDT Stage 3b chronic kidney disease (HCC) Type 2 diabetes mellitus with diabetic chronic kidney disease (HCC) Renal osteodystrophy URINALYSIS WITH MICROSCOPIC Routine 05/10/2025 10:26 AM EDT Stage 3b chronic kidney disease (HCC) Type 2 diabetes mellitus with diabetic chronic kidney disease (HCC) Renal osteodystrophy RENAL FUNCTION PANEL Routine 05/10/2025 10:26 AM EDT Stage 3b chronic kidney disease (HCC) Type 2 diabetes mellitus with diabetic chronic kidney disease (HCC) Renal osteodystrophy PTH, INTACT Routine 05/10/2025 10:26 AM EDT Stage 3b chronic kidney disease (HCC) Type 2 diabetes mellitus with diabetic chronic kidney disease (HCC) Renal osteodystrophy MICROSCOPIC EXAMINATION - DO NOT USE Routine 05/10/2025 10:26 AM EDT from Last 3 Months Results * (ABNORMAL) Microscopic Examination (05/10/2025 10:26 AM EDT) WBC, Urine 11-30(A) 0 - 5 /hpf [facility] RBC, Urine None seen 0 - 2 /hpf [facility] Squamous Epithelial, Urine None seen 0 - 10 /hpf [facility] Casts None seen None seen /lpf [facility] Bacteria, Urine Many(A) None seen/Few [facility] 05/10/2025 10:2 6 AM EDT 05/10/2025 us Rolando Lopez MD LAB MICROBIOLOGY - GENERAL OR DERABLES Final Result [facility] [address] [place] [address] * (ABNORMAL) Protein, Total, Random Urine w/Creatinine (Protein/Creat Ratio) (05/10/2025 10:26 AM EDT) Creatinine, Ur 36.3 Not Estab. mg/dL [facility] Protein, Ur 40.7 Not Estab. mg/dL [facility] Urine Protein/Creati nine Ratio 1,121(H) 0 - 200 mg/g creat [facility] Urine specimen (specimen) Urine specimen obtained by clean catch procedure / Unknown 05/10/2025 10:26 AM EDT 05/10/2025 Rolando Lopez MD LAB URINE ORDERABLES Final Re sult Performing Organization Address City/[facility]/ZIP Co de Phone Number [facility] [employer] [address] [place] [address] * (ABNORMAL) Urine Albumin / Creatinine Ratio (05/10/2025 10:26 AM EDT) Albumin, Urine 100.7 Not Estab. ug/mL [facility] Albumin/Creatin ine Ratio 277(H) 0 - 29 mg/g [facility] Comment: Normal: 0 - 29 Moderately increased: 30 - 300 Severely increased: >300 Urine specimen (specimen) Urine specimen obtained by clean catch procedure / Unknown 05/10/2025 10:26 AM EDT 05/10/2025 Rolando Lopez MD LAB URINE ORDERABLES Final Re sult Performing Organization Address City/[facility]/ZIP Co de Phone Number [facility] Marco Antonio Maria T [address] [place] [address] * (ABNORMAL) Vitamin D 25 Hydroxy (05/10/2025 10:26 AM EDT) Vitamin D, 25-OH, Total 26.4(L) 30.0 - 100.0 ng/mL [facility] Comment: Vitamin D deficiency has been defined by the [place] of Medicine and an Endocrine Society practice guideline as a level of serum 25-OH vitamin D less than 20 ng/mL (1,2). The Endocrine Society went on to further define vitamin D insufficiency as a level between 21 and 29 ng/mL (2). 1. IOM ([place] of Medicine). 2010. Dietary reference intakes for calcium and D. [place]: The National Academies Press. 2. Ileana MF, Mau VELA, Jay JOY, et al. Evaluation, treatment, and prevention of vitamin D deficiency: an Endocrine Society clinical practice guideline. JCEM. 2010; 96(7):1911-30. Blood specimen (specimen) Venous blood / Unknown 05/10/2025 10:26 AM EDT 05/10/2025 Rolando Lopez MD LAB BLOOD ORDERABLES Final Re sult [facility] [address] [place] [address] * (ABNORMAL) Urinalysis with microscopic (05/10/2025 10:26 AM EDT) Specific [place], Urine 1.009 1.005 - 1.030 [facility] pH Urine 5.5 5.0 - 7.5 [facility] Color, Urine Yellow Yellow [facility] Appearance Urine Cloudy(A) Clear [facility] [phone] WBC Esterase Urine 2+(A) Negative [facility] Protein, Ur 1+(A) Negative/Tr srinivas [facility] Glucose, Ur 1+(A) Negative [facility] Ketones, Urine Negative Negative [facility] Blood Urine Negative Negative [facility] Bilirubin Urine Negative Negative [facility] [phone] Urobilinogen Urine 0.2 0.2 - 1.0 mg/dL [facility] Nitrite, Urine Positive(A) Negative [facility] Microscopic Examination See below: [facility] [phone] Comment:Microscopic was zander cated and was performed. Urine specimen (specimen) Urine specimen obtained by clean catch procedure / Unknown 05/10/2025 10:26 AM EDT 05/10/2025 Rolando Lopez MD LAB URINE ORDERABLES Final Re sult Performing Organization Address City/[facility]/ZIP Co de Phone Number [facility] [address] [place] [address] * CBC (05/10/2025 10:26 AM EDT) WBC 7.8 3.4 - 10.8 x10E3/uL [facility] RBC 4.20 4.14 - 5.80 x10E6/uL [facility] Hemoglobin 13.6 13.0 - 17.7 g/dL [facility] Hematocrit 40.4 37.5 - 51.0 % [facility] MCV 96 79 - 97 fL [facility] MCH 32.4 26.6 - 33.0 pg [facility] MCHC 33.7 31.5 - 35.7 g/dL [facility] RDW 14.5 11.6 - 15.4 % [facility] Platelets 212 150 - 450 x10E3/uL [facility] Blood specimen (specimen) Venous blood / Unknown 05/10/2025 10:26 AM EDT 05/10/2025 Rolando Lopez MD LAB BLOOD ORDERABLES Final Re sult [facility] [address] [place] [address] * (ABNORMAL) PTH, Intact (05/10/2025 10:26 AM EDT) PTH 87(H) 15 - 65 pg/mL [facility] Blood specimen (specimen) Venous blood / Unknown 05/10/2025 10:26 AM EDT 05/10/2025 Rolando Lopez MD LAB BLOOD ORDERABLES Final Re sult [facility] [address] [place] [address] * (ABNORMAL) Magnesium (05/10/2025 10:26 AM EDT) Magnesium 2.4(H) 1.6 - 2.3 mg/dL [facility] Blood specimen (specimen) Venous blood / Unknown 05/10/2025 10:26 AM EDT 05/10/2025 Rolando Lopez MD LAB BLOOD ORDERABLES Final Re sult Performing Organization Address City/[facility]/ZIP Co de Phone Number [facility] [address] [place] [address] * (ABNORMAL) Renal Function Panel (05/10/2025 10:26 AM EDT) Glucose 115(H) 70 - 99 mg/dL [facility] BUN 48(H) 8 - 27 mg/dL [facility] Creatinine 2.40(H) 0.76 - 1.27 mg/dL [facility] eGFR CKD-EPI CR 2020 29(L) >59 mL/min/1.7 3 [facility] BUN/Creatinine Ratio 20 10 - 24 [facility] Sodium 138 134 - 144 mmol/L [facility] Potassium 4.2 3.5 - 5.2 mmol/L [facility] Chloride 99 96 - 106 mmol/L [facility] Bicarbonate (CO2) 16(L) 20 - 29 mmol/L [facility] Calcium 9.3 8.6 - 10.2 mg/dL [facility] Albumin 4.6 3.9 - 4.9 g/dL [facility] Phosphorus 4.8(H) 2.8 - 4.1 mg/dL [facility] Blood specimen (specimen) Venous blood / Unknown 05/10/2025 10:26 AM EDT 05/10/2025 us Rolando Lopez MD LAB BLOOD ORDERABLES Final Re sult [facility] [address] [place] [address] from Last 3 Months Insurance [employer] MCR Adv PPO ([phone]) [employer] MCR Adv PPO ([id number]) Care Teams Automatic Log Cut Off Sawyer Relationship Specialty Start Date End Date Lee Fabian MD PCP - General Internal Medicine 01/21/24
--- OUTSIDE RECORDS SUMMARY | 2025-07-12 17:45 | XMS_ITS | Encounter Summary ---
Author Organization [facility] Address [address] [place] [address] Care Team Providers Care Head Of Mobile Name Role Phone Lee Fabian MD Primary Care Provider [phone] Encounter Details Date Type Department Care Team (Late st Contact Info) Description 07/05/2025 Results Follow-Up Endocrinology - [address] [phone] Geeta Preson PA [address] [facility] [address] Social History Tobacco Use Types Packs/Day Years Used Date Smoking Tobacco: Former Cigarettes 1 1.7 1 10/06/2022 - 04/11/2025 Smokeless Tobacco: Never Alcohol Use Standard Drinks/Week Comments Yes 12 (1 standard drink = 0.6 oz pu re alcohol) Interpersonal Safety Answer Date Record ed Physical Abuse Unrecognized value 04/05/2025 Verbal Abuse Unrecognized value 04/05/2025 Sex and Gender Information Value Date [...] Refills Last Filled Start Date End Date levothyroxine (SYNTHROID, LEVOTHROID) 150 mcg tablet Take 1 tablet (150 mcg total) by mouth 1 (one) time each day. 30 each 07/05/2025 07/05/2026 documented in this encounter Plan of Treatment Upcoming Encounters Date Type Department Care Team (Late st Contact Info) Description 07/13/2025 10:00 AM EDT Evaluation [facility] [address] [facility] [address] [place] [phone] Akhil Novak OT 07/15/2025 10:30 AM EDT Office Visit Internal Medicine - [facility] [address] [place] [address] Bev Nichols NP [address] [place] [address] 07/25/2025 2:40 PM EDT Office Visit Gastroenterology - [place] [address] [facility] [address] [facility] [address] [place] [address] Fatou Weaver PA [address] [facility] [address] [place], [place] [phone] Scheduled Orders Name Type Priority Associated Diagnoses Orde r Schedule Thyroid stimulating hormone with reflex to free t4 and free t3 Lab Routine Hypothyroidism, unspecified type 1 Occurrences starting 07/05/2025 until 07/05/2026 documented as of this encounter Goals Goal [...] as of this encounter Visit Diagnoses Diagnosis Hypothyroidism, unspecified type- Primary documented in this encounter Discontinued Medications Medication Sig Discontinue Reason Start Date End Da te levothyroxine (SYNTHROID, LEVOTHROID) 137 mcg tablet Take 1 tablet (137 mcg total) by mouth 1 (one) time each day. Formulary change 06/03/2025 07/05/2025 documented as of this encounter Additional Health Concerns Active Problems Noted Date Diagnosed Date Impaired Tissue 08/10/2024 Education needed on impact of smoking on wound 1 10/10/2023 Education needed related to ulceration/compromised skin integrity. 08/10/2024 documented as of this encounter Care Teams Head Of Mobile Relationship Specialty Start Date End Date Lee Fabian MD [address] [place] [address] PCP - General Internal Medicine 08/03/24 documented as of this encounter
--- OUTSIDE RECORDS SUMMARY | 2025-07-12 17:45 | XMS_ITS | Clinical Summary ---
Author Organization [facility] Address [address] [place] [address] Phone Care Team Providers Care Director Recreation Name Role Phone Lee Fabian MD Primary Care Provider [phone] Allergies Active Allergy Reactions Criticality Noted Date Comments Lisinopril Hyperkalemia,Dehydra tion, Hives,Other,GI intolerance 09/12/2017 hyperkalemia Other reaction(s): Other (See Comments) hyperkalemia hyperkalemia Other Reaction(s): KIDNEY DAMAGE Medications bumetanide (BUMEX) 2 mg tablet Take 1 [...] 30 each 11 09/01/20 24 025 Active Additional Information Patient taking differently:81 mg oral2 times daily, Reported on 06/02/2025 buPROPion SR (WELLBUTRIN SR) 150 mg 12 hr tablet Take 1 tablet (150 mg total) by mouth 2 (two) times a day. Do not crush, chew, or split. 60 each 1 10/29/19 25 Active Additional Information Patient not taking.Reported on 04/12/2025 amLODIPine (NORVASC) 5 mg tablet Take 1 tablet (5 mg total) by mouth 1 (one) time each day. 11/26/19 25 Active blood-glucose meter (OneTouch Ultra2 Meter) misc To check sugars twice daily E11.9 1 kit 02/11/20 25 Active Jardiance 25 mg tablet Take 1 tablet (25 mg total) by mouth 1 (one) time each day. 90 tablet 1 03/02/20 25 Active lancets lancets To check sugars twice daily E11.9 200 each 1 03/02/20 25 026 Active OneTouch Ultra Test test strip Use twice a day to check sugars E11.9 200 each 1 03/02/20 25 Active ketorolac (ACULAR) 0.5 % ophthalmic solution 1 drop 2 (two) times a day. Operative eye 02/03/20 25 Active memantine (NAMENDA) 5 mg tablet Take 1 tablet (5 mg total) by mouth 2 (two) times a day. 03/09/20 25 Active glipiZIDE 2.5 mg tablet Take 2.5 mg by mouth 2 (two) times a day. 06/02/20 25 Active tirzepatide (Mounjaro) 7.5 mg/0.5 mL injectionIndica tions:Type 2 diabetes mellitus with foot ulcer, unspecified whether [facility] insulin use Inject 0.5 mL (7.5 mg total) under the skin every 7 (seven) days. 2 mL 5 06/02/20 25 Active metFORMIN (GLUCOPHAGE) 500 mg tablet Take 1 tablet in the morning with breakfast 06/02/20 25 Active levothyroxine (SYNTHROID, LEVOTHROID) 150 mcg tablet Take 1 tablet (150 mcg total) by mouth 1 (one) time each day. 30 each 11 07/05/20 25 026 Active levothyroxine (SYNTHROID, LEVOTHROID) 137 mcg tablet Take 1 tablet (137 mcg total) by mouth 1 (one) time each day. 30 each 11 06/03/20 025 Discontinu ed(Formula ry change) diclofenac (VOLTAREN) 1 % topical gel Apply 1 g topically 3 (three) times a day for 10 days. 30 g 07/01/20 25 025 Active Problems Problem Noted Date Diagnosed Date Acute diverticulitis 04/05/2025 Non-pressure chronic ulcer o f other part of left foot with fat layer exposed ([facility] V24, [facility] V28) 10/27/2024 ISTAP type 3 skin tear of left forearm Non-pressure chronic ulcer l eft lower leg, limited to breakdown skin ([facility] V24, [facility] V28) 10/12/2024 Type 2 diabetes mellitus wit h foot ulcer (CODE) ([facility] V24, [facility] V28) 10/06/2024 Surgical wound, non healing 10/06/2024 Abrasion of anterior left lower leg 10/06/2024 Non-pressure chronic ulcer o f other part of left foot limited to breakdown of skin ([facility] V24, [facility] V28) 10/06/2024 Non-pressure chronic ulcer o f other part of left foot with unspecified severity ([facility] V24, [facility] V28) 10/06/2024 Non-pressure chronic ulcer o f left heel and midfoot with bone involvement without evidence of necrosis ([facility] V24, [facility] V28) 10/06/2024 S/P debridement 08/31/2024 Diabetic infection of left foot ([facility] V24, S/[facility] V28) 08/31/2024 Foot infection 08/17/2024 Diabetic ulcer of left heel associated with type 2 diabetes mellitus, with fat layer exposed ([facility] V24, [facility] V28) 08/17/2024 Diabetic ulcer of left heel associated with type 1 diabetes mellitus, with fat layer exposed ([facility] V24, [facility] V28) 08/03/2024 Type 2 diabetes mellitus wit h foot ulcer ([facility] V24, [facility] V28) 08/02/2024 Non-pressure chronic ulcer o f other part of right foot with fat layer exposed [place] [place], [facility] [place] 08/02/2024 Charcot's joint, right ankle and foot 08/02/2024 Corns and callosities 08/02/2024 Essential (primary) hypertension 08/02/2024 Peripheral vascular disease, unspecified ([facility] V24) 08/02/2024 Type 2 diabetes mellitus wit h diabetic peripheral angiopathy without gangrene ([facility] [place], [facility] V28) 08/02/2024 Complete atrioventricular block ([facility] [place], [facility] V28) 05/30/2024 Chronic diastolic heart failure ([facility] [place], [facility]) 04/28/2024 Atypical atrial flutter ([facility] [place], [facility] V2 8) 10/19/2015 Encounters Date Type Department Care Team Description 07/05/2025 Results Follow-Up Endocrinology [address] [address] Geeta Person PA 07/01/2025 2:30 PM EDT Office Visit Walk-In Clinic - [address] [phone] Lalo Vazquez PA Olecranon bursitis of right elbow (Primary Dx) 06/30/2025 Telephone Internal Medicine - [address] [phone] Lee Fabian MD 06/13/2025 Billing Patient Not Present [facility] [address] [place] [address] Lee Fabian MD Aftercare following joint replacement surgery, unspecified joint (Primary Dx); Presence of right artificial knee joint; Type 2 diabetes mellitus with diabetic peripheral angiopathy without gangrene, unspecified whether terminal operator insulin use ([facility] [place], [facility] V28); Urinary tract infection without hematuria, site unspecified; Chronic diastolic (congestive) heart failure ([facility] [place], [facility] V28); Chronic kidney disease, stage 3a ([facility] [place], [facility] [place]); Anemia in stage 3a chronic kidney disease ([facility] [place], [facility] [place]) 06/06/2025 Telephone Internal Medicine - [address] [phone] Lee Fabian MD 06/02/2025 3:30 PM EDT Office Visit Endocrinology [address] [phone] Geeta Person PA Type 2 diabetes mellitus with foot ulcer, unspecified whether terminal operator insulin use ([facility] [place], [facility] V[place]) (Primary Dx); Hypothyroidism, unspecified type 04/12/2025 8:15 AM EDT Office Visit Internal Medicine - [address] [phone] Lee Fabian MD Type 2 diabetes mellitus with foot ulcer, unspecified whether terminal operator insulin use ([facility] [place], [facility] V[facility]) (Primary Dx); Chronic pain of right knee; Essential (primary) hypertension 04/12/2025 Telephone Endocrinology [address] [phone] Jessi Garcia [place] 04/12/2025 Telephone Internal Medicine - [address] [phone] Lee Fabian MD from Last 3 Months Immunizations Immunization Administration Dates Next Due Influenza Quadravalent, MDCK [...] 1 10/06/2022 - 04/11/2025 Smokeless Tobacco: Never Tobacco Cessation:Counseling Given: Not Answered Alcohol Use [...] Sign Reading Time Taken Comments Blood Pressure 124/52 06/02/2025 3:24 PM EDT Pulse 65 06/02/2025 3:24 PM EDT Temperature 36.7 C (98.1 F) 07/01/2025 2:38 PM EDT Respiratory Rate 17 04/07/2025 7:52 AM EDT Oxygen Saturation 96% 07/01/2025 2:38 PM EDT Inhaled Oxygen Concentration - - Weight 131 kg (289 lb 3.2 oz) 06/02/2025 3:24 PM EDT Height 190.5 cm (6' 3 ) 06/02/2025 3:24 PM EDT Body Mass Index 36.15 06/02/2025 3:24 PM EDT Plan of Treatment Upcoming Encounters Date Type Department Care Team (Late st Contact Info) Description 07/13/2025 10:00 AM EDT [facility] [address] [phone] Akhil Novak, OT 07/15/2025 10:30 AM EDT Office Visit [facility] - [facility] [address] [place] [address] Bev Nichols NP [address] [place] [address] 07/25/2025 2:40 PM EDT Office Visit Gastroenterology - [place] [address] [place] [address] Fatou Weaver PA [address] [facility] [address] [place] [address] Health Maintenance Due Date Last Done Comments Hepatitis A Vaccines (1 of 2 - Risk 2-dose series) 11/30/1979 Pneumococcal Vaccine: 50+ Years (2 of 2 - PCV) 01/05/2018 01/05/2017, 11/11/2015 HIV Screening 09/07/2022 Medicare Annual Wellness Visit 09/07/2022 Social Influencers of Health Screening 09/07/2022 Depression Screening 09/29/2024 Diabetes: Annual Retina Eye Exam 03/17/2025 03/17/2024 COVID-19 Vaccine ( season) 2025 07/08/2023, 09/10/2022, 03/11/2022, Additional history exists Influenza Vaccine (#1) 2025 , 07/08/2023, 07/18/2022, Additional history exists Diabetes: Annual Foot Exam 08/25/2025 08/25/2024 Diabetes: Blood Sugar Control Test (HGBA1C) 11/30/2025 06/02/2025, 04/22/2025, 03/02/2025, Additional history exists Diabetes: Annual Urine Albumin-Creatinine Ratio (uACR) 05/10/2026 05/10/2025, 04/14/2024, 04/14/2024 Diabetes: Annual GFR (Glomerular Filtration Rate) 05/17/2026 05/17/2025, 05/17/2025, 05/16/2025, Additional history exists Hypertension/CHF/CAD Annual BMP Blood Test 05/17/2026 05/17/2025, 05/17/2025, 05/16/2025, Additional history exists Cholesterol Screening (Lipid Panel) 08/20/2029 08/20/2024, 07/22/2024, 07/22/2024, Additional history exists DTaP,Tdap,and Td Vaccines (3 - Td or Tdap) 04/09/2030 04/09/2020, 12/16/2017 Colorectal Cancer Screening: Colonoscopy 05/12/2033 05/12/2023 Hepatitis C Screening Completed 12/24/2017 Zoster Vaccines Completed 04/13/2018, 12/16/2017 RSV Immunization Adult Patients Completed 10/28/2023 HIB Vaccines Aged Out No longer eligi [...] smoking on wound No Susan Peralta RN Patient and Caregiver Understand Wound Care Education Care Plan Education needed related to ulceration/compr omised skin integrity. No Susan Peralta RN Medical Devices Implanted Type Area Bee Farmer Device Identifier Shelf Expiration Date Model / Serial / Lot Cardiac Pacemaker Cardiac Pacemaker Left: Shoulder [employer] - CARDIAC RHYTH-CRDM Procedures Procedure Name Priority Date/Time Associated Diagnosis Comments TRIIODOTHYRONINE FREE Routine 07/01/2025 3:02 PM EDT Hypothyroidism, unspecified type FREE THYROXINE WITH REFLEX TO FREE TRIIODOTHYRONINE Routine 07/01/2025 3:02 PM EDT Hypothyroidism, unspecified type THYROID STIMULATING HORMONE WITH REFLEX TO FREE T4 AND FREE T3 Routine 07/01/2025 3:02 PM EDT Hypothyroidism, unspecified type TRIIODOTHYRONINE FREE Routine 06/02/2025 4:04 PM EDT Hypothyroidism, unspecified type FREE THYROXINE WITH REFLEX TO FREE TRIIODOTHYRONINE Routine 06/02/2025 4:04 PM EDT Hypothyroidism, unspecified type THYROID STIMULATING HORMONE WITH REFLEX TO FREE T4 AND FREE T3 Routine 06/02/2025 4:04 PM EDT Hypothyroidism, unspecified type HEMOGLOBIN A1C Routine 06/02/2025 4:04 PM EDT Type 2 diabetes mellitus with foot ulcer, unspecified whether [facility] use ([facility] V24, [facility] V28) TRIIODOTHYRONINE FREE Routine 04/12/2025 9:24 AM EDT Hypothyroidism, unspecified type FREE THYROXINE WITH REFLEX TO FREE TRIIODOTHYRONINE Routine 04/12/2025 9:24 AM EDT Hypothyroidism, unspecified type THYROID STIMULATING HORMONE WITH REFLEX TO FREE T4 AND FREE T3 Routine 04/12/2025 9:24 AM EDT Hypothyroidism, unspecified type BASIC METABOLIC PANEL Routine 04/12/2025 9:24 AM EDT Acute diverticulitis LIPID PANEL WITH REFLEX TO DIRECT LDL Routine 08/20/2024 6:25 AM EST URINE ALBUMIN CREATININE RATIO Routine 04/14/2024 DIABETES EYE EXAM Routine 03/17/2024 COLONOSCOPY Routine 05/12/2023 HEPATITIS C SCREENING Routine 12/24/2017 from Last 3 Months or Most Recently Relevant to Health Maintenance Results * (ABNORMAL) Thyroid stimulating hormone with reflex to free t4 and free t3 (07/01/2025 3:02 PM EDT) Only the most recent of3 resultswithin the time period is included. TSH 26.72(H) 0.40 - 4.00 mcIU/mL LAB CHEMISTRY METHOD 07/01/2025 7:03 PM EDT [facility] Blood Venous blood specimen / Unknown Venipuncture / Unknown 07/01/2025 3:02 PM EDT 07/01/2025 3:02 PM EDT us Geeta PATTON LAB BLOOD ORDERABLES Final Result [facility] [address] [place] [address], [place] [phone] * Free thyroxine with reflex to free triiodothyronine (07/01/2025 3:02 PM EDT) Only the most recent of3 resultswithin the time period is included. Free T4 0.85 0.70 - 1.80 ng/dL LAB CHEMISTRY METHOD 07/01/2025 8:29 PM EDT [facility] Blood Venous blood specimen / Unknown Venipuncture / Unknown 07/01/2025 3:02 PM EDT 07/01/2025 3:02 PM EDT Geeta PATTON LAB BLOOD ORDERABLES Final Result Performing Organization Address [facility]/ZIP Co de Phone Number [facility] [address] [place] [address], [place] [phone] * (ABNORMAL) Triiodothyronine free (07/01/2025 3:02 PM EDT) Only the most recent of3 resultswithin the time period is included. [facility] T3, Free 179(L) 230 - 420 pcg/dL LAB CHEMISTRY METHOD 07/01/2025 8:59 PM EDT [facility] Blood Venous blood specimen / Unknown Venipuncture / Unknown 07/01/2025 3:02 PM EDT 07/01/2025 3:02 PM EDT Geeta PATTON LAB BLOOD ORDERABLES Final Result Performing Organization Address [facility] Co de Phone Number [facility] [address] [place] [address], [place] [phone] * Hemoglobin A1c (06/02/2025 4:04 PM EDT) [facility] Hemoglobin A1C 6.2 <6.5 % LAB CHEMISTRY METHOD 06/02/2025 9:23 PM EDT [facility] Mean Bld Glu Estim. 131 mg/dL LAB CHEMISTRY METHOD 06/02/2025 9:23 PM EDT [facility] Blood Venous blood specimen / Unknown Venipuncture / Unknown 06/02/2025 4:04 PM EDT 06/02/2025 4:04 PM EDT Geeta PATTON LAB BLOOD ORDERABLES Final Result Performing Organization Address City/[facility]/ZIP Co de Phone Number [facility] [address] [place] [address], [place] [phone] * (ABNORMAL) Basic metabolic panel (04/12/2025 9:24 AM EDT) Sodium 139 133 - 145 mmol/L LAB CHEMISTRY METHOD 04/12/2025 12:13 PM [facility] Potassium 4.5 3.5 - 5.5 mmol/L LAB CHEMISTRY METHOD 04/12/2025 12:13 PM [facility] Chloride 104 96 - 110 mmol/L LAB CHEMISTRY METHOD 04/12/2025 12:13 PM [facility] CO2 31 21 - 32 mmol/L LAB CHEMISTRY METHOD 04/12/2025 12:13 PM [facility] Anion Gap 4 3 - 11 LAB CHEMISTRY METHOD 04/12/2025 12:13 PM [facility] Glucose 160(H) 70 - 100 mg/dL LAB CHEMISTRY METHOD 04/12/2025 12:13 PM [facility] BUN 43(H) 5 - 25 mg/dL LAB CHEMISTRY METHOD 04/12/2025 12:13 PM [facility] Creatinine 1.82(H) 0.70 - 1.30 mg/dL LAB CHEMISTRY METHOD 04/12/2025 12:13 PM [facility] eGFR 41(L) >=60 mL/min/1. 73m2 LAB CHEMISTRY METHOD 04/12/2025 12:13 PM [facility] Comment:Calculation based on the Chronic Kidney Disease Epidemiology Collaboration (CKD-EPI) equation refit without adjustment for race. BUN/Creatinine Ratio 23.6 LAB CHEMISTRY METHOD 04/12/2025 12:13 PM [facility] Calcium 8.5 8.5 - 10.5 mg/dL LAB CHEMISTRY METHOD 04/12/2025 12:13 PM [facility] Blood Venous blood specimen / Unknown Venipuncture / Unknown 04/12/2025 9:24 AM EDT 04/12/2025 9:24 AM EDT Melinda PATTON LAB BLOOD ORDERABLES Final Result [facility] [address] [place] [address], [place] [phone] * Lipid panel with reflex to direct LDL (08/20/2024 6:25 AM EST) Cholesterol 123 0 - 200 mg/dL LAB CHEMISTRY METHOD 08/20/2024 7:39 AM EST [facility] Triglycerides 102 0 - 150 mg/dL LAB CHEMISTRY METHOD 08/20/2024 7:39 AM EST [facility] HDL 53 >=40 mg/dL LAB CHEMISTRY METHOD 08/20/2024 7:39 AM [facility] LDL Calculated 50 0 - 100 mg/dL LAB CHEMISTRY METHOD 08/20/2024 7:39 AM EST [facility] VLDL Cholesterol Linus 20.4 mg/dL LAB CHEMISTRY METHOD 08/20/2024 7:39 AM EST [facility] Non HDL Chol. (LDL+VLDL) 70 <145 mg/dL LAB CHEMISTRY METHOD 08/20/2024 7:39 AM EST [facility] Chol/HDL Ratio 2.3 0.0 - 4.4 LAB CHEMISTRY METHOD 08/20/2024 7:39 AM [facility] Blood Venous blood specimen / Unknown Venipuncture / Unknown 08/20/2024 6:25 AM EST 08/20/2024 7:03 AM EST Jefferson Rendon MD LAB BLOOD ORDERABLES Final Resu lt Performing Organization Address City/[facility]/ZIP Co de Phone Number [facility] [address] [place] [address], [place] [phone] * HM Urine Albumin Creatinine Ratio (04/14/2024) Urine Albumin Creatinine Ratio Abstracted Historical Provider HEALTH MAINTENANCE Final Result * Diabetes Eye Exam (03/17/2024) Pathologist [facility] Diabetes: Annual Retina Eye Exam Abstracted [facility] Provider HEALTH MAINTENANCE Final Result * Colonoscopy (05/12/2023) Pathologist [facility] Colonoscopy No Interpretation , Abstracted Anatomical Region Laterality Modality Other [facility] Provider HEALTH MAINTENANCE Final Result * Hepatitis C Screening (12/24/2017) Pathologist [facility] Hepatitis C Screening Abstracted [facility] Provider HEALTH MAINTENANCE Final Result from Last 3 Months or Most Recently Relevant to Health Maintenance Additional Health Concerns Active Problems Noted Date Diagnosed Date Impaired Tissue 08/10/2024 Education needed on impact of smoking on wound 1 10/10/2023 Education needed related to ulceration/compromised skin integrity. 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 Do not modify or discontinue any currently active code status orders. * Full Code - Default Date Activated Date Inactivated Comments 08/20/2024 6:27 [...] discontinue any currently active code status orders. Healthcare Agents on File Name Relationship Healthcare Agent Relationshi p Communication Blas Genao Son First Alternate Health Care Agent Care Teams Director Recreation Relationship Specialty Start Date End Date Lee Fabian MD [address] [place] [address] PCP - General Internal Medicine 08/03/24
--- OUTSIDE RECORDS SUMMARY | 2025-07-12 17:45 | XMS_ITS | Encounter Summary ---
Author Organization [facility] Address [address] [place] [address] Care Team Providers Care Promotions Director Name Role Phone Lee Fabian MD Primary Care Provider Unavail able Vitaliy Fields MD Unavailable [phone] Dallas Camejo MD Unavailable Rolando Lopez MD Unavailable Cesar Fair MD Unavailable Daisy Her PT Unavailable [phone] Ena Mtz MD Unavailable [phone] Toni Rae MD Unavailable [phone] System, Provider Not In Unavailable Unavaila Manuel Soler MD Unavailable [phone] Encounter Details Date Type Department Care Team (Late st Contact Info) Description 10/19/2024 Scanned Document [facility] [address] [facility] [address] [place], [place] [address] Alejandra Eddy [address] [place] [address] Social History Tobacco Use Types Packs/Day Years Used Date Smoking Tobacco: Former Cigarettes 1 29.8 1 977 - 2004 Smokeless Tobacco: Never Alcohol Use Standard Drinks/Week Comments Yes 21 (1 standard drink = 0.6 oz pu re alcohol) [facility] Utilities Answer Date Recorded In the past 12 months has th e electric, gas, oil, or water [employer] threatened to shut off services in your home? No 09/10/2024 AUDIT-C Answer Date Recorded Q1: How often do you have a drink containing alcohol? 4 or more times a week 09/02/2024 Q2: How many drinks containi ng alcohol do you have on a typical day when you are drinking? 3 or 4 4 Q3: How often do you have [...] in the past 12 m [facility], were you homeless or living in a care home (including now)? 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/10/24 09/16/2024 09/16/2024 11/24/2024 3:08 P M EST R/O Respiratory Disease 11/07/2024 11/07/202410/30 7:06 AM EST R/O Respiratory Disease 11/23/2024 11/23/202410/31 12:00 PM EST documented as of this encounter Care Teams Promotions Director Relationship Specialty Start Date End Date Lee Fabian MD PCP - General Internal Medicine 09/02/24 Vitaliy Fields MD [address] [place] [id number] Cardiovascular Disease 09/02/24 Dallas Camejo MD [address] [place] [address] Surgery, Orthopedic 09/02/24 Rolando Lopez MD [address] Transplant - Ph [address] [place] [address] Physician Nephrology 09/02/24 Cesar Fair MD [address] [facility] [address] [place] [phone] Surgery, Cardiac 11/08/24 Daisy Her, PT 85 [facility] [address] [place] [phone] [facility] 11/18/24 Ena Mtz MD [address] [place] [address] Infectious Disease 04/12/25 Toni Rae MD [address] [place] [address] Surgery, Vascular 04/12/25 System, Provider Not In 04/12/25 Manuel Mesa MD [address] [place] [id number] Physician Surgery, Orthopedic 04/19/25 documented as of this encounter
--- OUTSIDE RECORDS SUMMARY | 2025-07-12 17:45 | XMS_ITS | Encounter Summary ---
Author Organization [facility] Address [address] [place] [address] Care Team Providers Care Supervisor Motorcycle Repair Shop Name Role Phone Lee Fabian MD Primary Care Provider Unavail able Vitaliy Fields MD Unavailable [phone] [place] Camejo MD Unavailable Rolando Lopez MD Unavailable Cesar Fair MD Unavailable [phone] Daisy Her PT Unavailable Ena Mtz MD Unavailable Toni Rae MD Unavailable [phone] System, Provider Not In Unavailable Unavaila Manuel Soler MD Unavailable Encounter Details Date Type Department Care Team (Late st Contact Info) Description 12/07/2024 Scanned Document [facility] [address] [place], [place] [address] Alejandra Eddy [address] [place] [address] Social History Tobacco Use Types Packs/Day Years Used Date Smoking Tobacco: Former Cigarettes 1 29.8 1 977 - 2004 Smokeless Tobacco: Never Alcohol Use Standard Drinks/Week Comments Yes 21 (1 standard drink = 0.6 oz pu re alcohol) [facility] Utilities Answer Date Recorded In the past 12 months has th e electric, gas, oil, or water [employer] threatened to shut off services in your [...] AM EST Office Visit [facility] [address] [place] [address] Manuel Mesa MD [address] [facility] [address] [place] [address] documented as of this encounter Visit Diagnoses Not on filedocumented in this encounter Care Teams Supervisor Motorcycle Repair Shop Relationship Specialty Start Date End Date Lee Fabian MD PCP - General Internal Medicine 09/02/24 Vitaliy Fields MD [address] [place] [address] Cardiovascular Disease 09/02/24 [place] Camejo MD 7 [place] [address] Surgery, Orthopedic 09/02/24 Rolando Lopez MD [address] Transplant - [address] [place] [address] Physician Nephrology 09/02/24 Cesar Fair MD 85 [facility] 919 [place] [address] Surgery, Cardiac 11/08/24 Daisy Her, PT 85 [facility] 609 [place] [address] Rn NeurologyRotary Shear Operator Medicine and Rehabilitation 11/18/24 Ena Mtz MD 132 [place] [address] Infectious Disease 04/12/25 Toni Rae MD [address] [address] Surgery, Vascular 04/12/25 System, Provider Not In 04/12/25 Manuel Mesa MD [address] [place] [address] Physician Surgery, Orthopedic 04/19/25 documented as of this encounter
--- OUTSIDE RECORDS SUMMARY | 2025-07-12 17:45 | XMS_ITS | Encounter Summary ---
Author Organization [facility] Address [address] [place] [address] Care Team Providers Care Research Manufacturing Operator Name Role Phone Lee Fabian MD Primary Care Provider Unavail able Vitaliy Fields MD Unavailable [phone] [place] Camejo MD Unavailable Rolando Lopez MD Unavailable Cesar Fair MD Unavailable [phone] Daisy Her PT Unavailable [phone] Ena Mtz MD Unavailable [phone] Toni Rae MD Unavailable [phone] System, Provider Not In Unavailable Unavaila Manuel Soler MD Unavailable Encounter Details Date Type Department Care Team (Late st Contact Info) Description 10/19/2024 Scanned Document [facility] [address] [facility] [address] [place], [place] [address] Alejandra Eddy [address] [place] [address] Social History Tobacco Use Types Packs/Day Years Used Date Smoking Tobacco: Former Cigarettes 1 29.8 1 977 - 2004 Smokeless Tobacco: Never Alcohol Use Standard Drinks/Week Comments Yes 21 (1 standard drink = 0.6 oz pu re alcohol) [facility] Utilities Answer Date Recorded In the past 12 months has th e electric, gas, oil, or water [employer] threatened to shut off services in your [...] any time in the past 12 m [facility], were you homeless or living in a fdc (including now)? No 09/10/2024 Sex and Gender [...] AM EST Office Visit [facility] 7 [facility] [address] [place] [address] Manuel Mesa MD 499 [facility] [address] [place] [address] documented as of this encounter Visit Diagnoses Not on filedocumented in this encounter 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/10/24 09/16/2024 09/16/2024 11/24/2024 3:08 P M EST R/O Respiratory Disease 11/07/2024 11/07/202410/30 7:06 AM EST R/O Respiratory Disease 11/23/2024 11/23/202410/31 12:00 PM EST documented as of this encounter Care Teams Research Manufacturing Operator Relationship Specialty Start Date End Date Lee Fabian MD PCP - General Internal Medicine 09/02/24 Vitaliy Fields MD [address] [place] [address] Cardiovascular Disease 09/02/24 [place] Camejo MD [address] [place] [address] Surgery, Orthopedic 09/02/24 Rolando Lopez MD [address] Transplant - Ph 14 [place] [address] Physician Nephrology 09/02/24 Cesar Fair MD 85 [facility] [place] [facility] [address] [place] [phone] Surgery, Cardiac 11/08/24 Daisy Her, PT 85 [facility] [address] [place] [address] Gunner'[employer] And Former Automatic Medicine and Rehabilitation 11/18/24 Ena Mtz MD [address] [place] [address] Infectious Disease 04/12/25 Toni Rae MD [address] [place] [address] Surgery, Vascular 04/12/25 System, Provider Not In 04/12/25 Manuel Mesa MD [address] [place] [address] Physician Surgery, Orthopedic 04/19/25 documented as of this encounter
--- OUTSIDE RECORDS SUMMARY | 2025-07-12 17:45 | XMS_ITS ---
Care Plan Created on: July 12, 2025 Luca Crowe : 1960 Sex: Male Author Organization [facility] Address [address] [place] [address] Phone Care Team Providers Care Sound Effects Technician Name Role Phone Lee Fabian MD Primary Care Provider [phone] Active Problems Problem Noted Date Diagnosed Date Acute diverticulitis 04/05/2025 Non-pressure chronic ulcer o f other part of left foot with fat layer exposed ([facility] V24, [facility] V28) 10/27/2024 ISTAP type 3 skin tear of left forearm Non-pressure chronic ulcer l eft lower leg, limited to breakdown skin ([facility] V24, [facility] V28) 10/12/2024 Type 2 diabetes mellitus wit h foot ulcer (CODE) ([facility] V24, [facility] V28) 10/06/2024 Surgical wound, non healing 10/06/2024 Abrasion of anterior left lower leg 10/06/2024 Non-pressure chronic ulcer o f other part of left foot limited to breakdown of skin ([facility] V24, [facility] V28) 10/06/2024 Non-pressure chronic ulcer o f other part of left foot with unspecified severity ([facility] V24, [facility] V28) 10/06/2024 Non-pressure chronic ulcer o f left heel and midfoot with bone involvement without evidence of necrosis ([facility] V24, [facility] V28) 10/06/2024 S/P debridement 08/31/2024 Diabetic infection of left foot ([facility] V24, [facility] V28) 08/31/2024 Foot infection 08/17/2024 Diabetic ulcer of left heel associated with type 2 diabetes mellitus, with fat layer exposed ([facility] V24, [facility] V28) 08/17/2024 Diabetic ulcer of left heel associated with type 1 diabetes mellitus, with fat layer exposed ([facility] V24, [facility] V28) 08/03/2024 Type 2 diabetes mellitus wit h foot ulcer ([facility] V24, [facility] V28) 08/02/2024 Non-pressure chronic ulcer o f other part of right foot with fat layer exposed ([facility] V24, [facility] V28) 08/02/2024 Charcot's joint, right ankle and foot 08/02/2024 Corns and callosities 08/02/2024 Essential (primary) hypertension 08/02/2024 Peripheral vascular disease, unspecified ([facility] V24) 08/02/2024 Type 2 diabetes mellitus wit h diabetic peripheral angiopathy without gangrene ([facility] V24, [facility] V28) 08/02/2024 Complete atrioventricular block ([facility] V24, [facility] V28) 05/30/2024 Chronic diastolic heart failure ([facility] V24, [facility] V28) 04/28/2024 Atypical atrial flutter ([facility] V24, [facility] V2 8) 10/19/2015 Additional Health Concerns Active Problems Noted Date Diagnosed Date Impaired Tissue 08/10/2024 Education needed on impact of smoking on wound 1 10/10/2023 Education needed related to ulceration/compromised skin integrity. 08/10/2024 Goals Goal Patient Goal Type Associated Problems [...]
--- OUTSIDE RECORDS SUMMARY | 2025-07-12 17:45 | XMS_ITS | Clinical Summary ---
Author Organization [facility] Address [address] [facility] [address] [place] [address] Phone Care Team Providers Care Mutual Fund Accountant Name Role Phone Pcp, Unknown Primary Care [...] HEPATITIS C SCREENING 1978 HIV ONE-TIME SCREENING (18-65 YEARS) 1978 COLOGUARD 2005 COLONOSCOPY 2005 COLORECTAL CANCER SCREENING 2005 FIT TEST 2005 FOBT 2005 SIGMOIDOSCOPY 2005 VIRTUAL COLONOSCOPY 2005 PNEUMOCOCCAL VACCINES (50+ years) (2 of 2 - PCV) 01/05/2018 01/05/2017 INFLUENZA VACCINE (#1) 2025 0, 07/08/2018, 05/20/2017, Additional history exists COVID-19 VACCINE (2 - 2024- season) 2025 12/25/2020 Adult Td,Tdap Booster 04/09/2030 04/09/2020, 018 RSV VACCINE (1 - 1-dose 75+ series) [...] file Insurance MEDICARE PART A & B Member Subscriber Plan / Payer (Ef fective 2018-Present) Name:Sebastien Luca Member ID:[id number] Relation to Subscriber:Self Name:Angeles Crowen Subscriber ID:[id number] Payer ID:[id number] Group ID:Not on file Type:Medicare Address: [facility] [employer] [address] [place] [phone] [employer] MEDEX SUPPLEMENT MEDICARE PART A & B [employer] MEDEX SUPPLEMENT MEDICARE PART A & B [employer] MEDEX SUPPLEMENT MEDICARE PART A & B Ph[employer] MEDEX SUPPLEMENT MEDICARE PART A & B Ph[employer] MEDEX SUPPLEMENT MEDICARE PART A & B Ph[employer]ive MEDEX SUPPLEMENT MEDICARE PART A & B Ph[employer] MEDEX SUPPLEMENT MEDICARE PART A & B Ph[employer] MEDEX SUPPLEMENT MEDICARE PART A & B Ph[employer] MEDEX SUPPLEMENT MEDICARE PART A & B [employer] MEDEX SUPPLEMENT Care Teams Mutual Fund Accountant Relationship Specialty Start Date End Date Pcp, Unknown PCP - General 04/09/20 Additional Source Comments The information contained in this document represents components of the legal health record. It is not the complete legal health record.[facility]
== END 2025-07-12 15:47 | disposition home or self-care (01) ==
LOC: HO.HCS 14:52
PROVIDERS: PCP Internal Medicine; Visit Provider Internal Medicine
DX: I48.0 Paroxysmal atrial fibrillation (principal); I50.30 Unspecified diastolic (congestive) heart failure; Z95.818 Presence of other cardiac implants and grafts; G47.33 Obstructive sleep apnea (adult) (pediatric); Z95.0 Presence of cardiac pacemaker
CPT/HCPCS: 93010; 93279; 99214; G2211

== ENCOUNTER → 2025-07-12 14:52 | Outpatient (BNVA) | payer MEDICARE, SELFPAY | PROVIDERS: PCP Internal Medicine; Visit Provider Internal Medicine | DX: I48.0 Paroxysmal atrial fibrillation (principal); G47.33 Obstructive sleep apnea (adult) (pediatric); Z99.89 Dependence on other enabling machines and devices; Z95.0 Presence of cardiac pacemaker; I50.30 Unspecified diastolic (congestive) heart failure; Z95.818 Presence of other cardiac implants and grafts | CPT/HCPCS: 93005; 99212 ==

== ENCOUNTER → 2025-07-26 14:42 | Outpatient (REF) | payer MEDICARE, SELFPAY ==
--- OUTSIDE RECORDS SUMMARY | 2025-07-25 14:40 | XMS_ITS | Encounter Summary ---
Author Organization [facility] Address [address] [place] [address] Care Team Providers Care Edge Finisher Name Role Phone Lee Fabian MD Primary Care Provider [phone] Reason for Visit * Reason Comments office visit Cyst of pancreas Encounter Details Date Type Department Care Team (Latest Contact Info) Description 07/25/2025 2:40 PM EDT Office Visit [facility] - [place] [address] [facility] [address] [place] [address] Fatou Weaver PA [address] [place] [phone] Diverticulosis (Primary Dx); Pancreas cyst Social History Tobacco Use Types Packs/Day Years [...] Sign Reading Time Taken Comments Blood Pressure 140/64 07/25/2025 2:38 PM EDT Pulse 64 07/25/2025 2:38 PM EDT Temperature - - Respiratory Rate - - Oxygen Saturation 96% 07/25/2025 2:38 PM EDT Inhaled Oxygen Concentration - - Weight 132 kg (292 lb) 07/25/2025 2:38 PM EDT Height 190.5 cm (6' 3 ) 07/25/2025 2:38 PM EDT Body Mass Index 36.5 07/25/2025 2:38 PM EDT documented in this encounter Functional Status * [...] Assessment Author No 09/19/2024 11:54 PM Erik Rendno RN documented as of this encounter Mental Status * Because of a physical, mental, or emotional condition, do you have serious difficulty concentrating, remembering, or making decisions? (5 years old or older) Answer Entry Date Author No 09/19/2024 11:54 PM Erik Rendon RN documented in this encounter Plan of Treatment Upcoming Encounters Date Type Department Care Team (Late st Contact Info) Description 08/02/2025 11:15 AM EST Treatment [facility] [address] [address] Akhil Novak, OT documented as of this encounter Goals Goal Patient Goal Type Associated Problems Recent Progress Patient-Stated? Author Pt goal General Yes Akhil Novak, OT Note: Eliminate the sac/swelling in the elbow; decrease pain STG 4-6 visits General Akhil Stein, OT Note: Patient will report <=2/10 pain in R elbow at end range, Patient will demo R sh AROM improved by 5-10* to be able to don jacket with increased ease, Patient will demo improved functional use of Right upper extremity as evidenced by Quick Dash score <= 25 to be able to take out the trash with minimal pain Patient will perform initial HEP MOD I LTG 12 visits General Akhil Stein, OT Note: Patient will report <=1/10 pain in R elbow with activity, Patient will demo R UE AROM WFL for IADLs, Patient will demo improved functional use of Right upper extremity as evidenced by Quick Dash score <= 15 to be able to lift a 25# box, and Patient will perform HEP MOD I Decrease Wound Volume by X% by date [...] as of this encounter Visit Diagnoses Diagnosis Diverticulosis- Primary Diverticulosis of colon (without mention of hemorrhage) Pancreas cyst Cyst and pseudocyst of pancreas documented in this encounter Additional Health Concerns Active Problems Noted Date Diagnosed Date Impaired Tissue 08/10/2024 Education needed on impact of smoking on wound 1 10/10/2023 Education needed related to ulceration/compromised skin integrity. 08/10/2024 documented as of this encounter Care Teams Edge Finisher Relationship Specialty Start Date End Date Lee Fabian MD [address] [place] [address] PCP - General Internal Medicine 08/03/24 documented as of this encounter
--- NOTE | 2025-07-26 14:45 | CA_ITS ---
Transthoracic Echocardiogram Patient (Last, First, Middle): Luca Crowe, Gender: Male Date of : 1960 Age: 64 Procedure Date: 07/26/2025 Procedure Type: Transthoracic Echocardiogram Location: OP Height: 190.5 cm Weight: 126.55 kg BSA: 2.53 m2 Heart Rate: bpm BP: 124 / 58 mmHg Media Theorist And Author Of: JANIE Referring MD: Vitaliy Fields MD Symptoms: I50.30 - Unspecified diastolic (congestive) heart failure Study Quality: Fair, contrast ECG Rhythm: Atrial flutter vs fibrillation Conclusions: - The left ventricular systolic function is mildly decreased. The calculated ejection fraction is 51% by biplane method. - No obvious valvular pathology seen on this study. - There is mild dilatation of the sinuses of Valsalva measuring 4.42 cm and mild dilatation of the ascending aorta measuring 4.10 cm. Findings Procedure Information Contrast agent, definity, is being given per protocol without apparent complications. Left Ventricle Mildly increased left ventricular cavity size. The left ventricular systolic function is mildly decreased. The calculated ejection fraction is 51% by biplane method. There is mild global hypokinesis. Diastolic function is indeterminate on the basis of available data. There is mild septal asymmetric hypertrophy. Right Ventricle Mildly increased right ventricular cavity size. There is low normal right ventricular systolic function. Atria The left atrium is normal in size. The right atrium is mildly dilated. Aortic Valve There is a normal trileaflet aortic valve. There is mild calcification of the aortic valve. There is no aortic valve stenosis. There is no aortic valve regurgitation. Mitral Valve The mitral valve appears normal. There is trace mitral valve regurgitation. There is no mitral valve stenosis. Pulmonic Valve The pulmonic valve is likely normal. Tricuspid Valve There is mild tricuspid valve regurgitation. Borderline RVSP. Great Vessels There is mild dilatation of the sinuses of Valsalva measuring 4.42 cm and mild dilatation of the ascending aorta measuring 4.10 cm. Venous The inferior vena cava is mildly dilated and collapses greater than 50% with inspiration. Pericardium/Pleural There is no evidence of pericardial effusion. Prior Study Comparison No significant change compared to prior study dated: 08/05/2024. Recommendations, Care & Conclusions No obvious valvular pathology seen on this study. Measurements 2D Linear Measurements IVSd: 1.17 0.6-0.9/0.6-1.0 cm LVIDd: 5.56 3.9-5.3/4.2-5.9 cm LVIDd Index: 2.20 2.4-3.2/2.2-3.1 cm/m2 LVIDs: 4.81 2.0-3.6 cm LVPWd: 0.94 0.7-1.1 cm LA Diam: 3.80 2.7-3.8/3.0-4.0 cm LAIDs Index: 1.50 1.5-2.3 cm/m2 LV Mass: 291.06 67-162/88-224 g LV Mass Index: 115.04 43-95/49-115 g/m2 LVOT Diam: 2.50 3.0+(-)1.3 cm 2D Systolic Function EF 4C: 59.60 >55% EF 2C: 40.40 >55% EF BiP: 51.40 >55% Mitral Valve MV Pk E: 0.82 MV Decel Time: 176.00 E'Lateral: 11.00 E'Medial: 10.10 E/E' Med: 8.10 E/E' Lat: 7.40 PHT: 52.00 MVA PHT: 4.23 Decel Wake: 5.29 Aortic Valve AoV Pk Indio: 1.41 AoV Mn Indio: 1.03 AoV VTI: 0.26 AoV Pk Grad: 8.00 Aov Mn Grad: 5.00 NATE Cont.VTI: 3.81 LVOT LVOT Pk Indio: 1.04 LVOT Mn Indio: 0.79 LVOT VTI: 0.20 LVOT Pk Grad: 4.00 LVOT Mn Grad: 3.00 LVOT Diam: 2.50 LVOT Area: 4.91 Diastolic Function MV Pk E: 0.82 E'Medial: 10.10 E/E' Med: 8.10 E' Laterial: 11.00 E/E' Lat: 7.40 Right Ventricle TAPSE (mm): 17.30 TVS' Indio: 10.50 Tricuspid Valve TR Pk Indio: 2.67 TR Pk Grad: 29.00 RA Press: 8.00 RVSP: 37.00 Great Vessels Aorta Sinus of Valsalva: 4.42 2.0-3.[address] Ridge: 3.35 1.7-3.4 cm Ao Asc: 4.10 2.1-3.4 cm Updated in Other Vendor System with Status of Final Vitaliy Fields MD electronically signed on 07/27/2025 5:30:00 PM with status of Final
--- OUTSIDE RECORDS SUMMARY | 2025-07-26 19:08 | XMS_ITS | Data Portability ---
Author Organization [facility] Address [address] [place] [address] Assessment No assessment recorded. Plan of Treatment [...] Montalvo PA-C [address], [place], [address], [facility] 07/01/2024 11:52:22 4 Small Joint Kenalog Injection, L/R completed Rachel Montalvo PA-C [address], [place], [address], [facility] 12/19/2023 15:28:48 4 Tendon Sheath Kenalog Injection, Bilateral completed Rachel Montalvo PA-C [address], [place], [address], [facility] 12/19/2023 15:28:37 Imaging Results None recorded. Procedure Notes None recorded. Medical Equipment None Reported. Allergies Allergen ID Allergen Name Allergen Category Reaction Reaction Severity Criticality Documentation Date Start Date Code Code System Note Provider Name and Address Organization Details Recorded Time 23718 lisinopri l medicatio n Not available Not available Not available 12/01/20232017 18493 RxNorm Not Available [facility] 4 13:16:40 Medications Name Sig Start Date Stop [...] Updated DateTime 12/19/2023 190.5 cm 30.6 kg/m2 187725.[address] [facility] 12/19/2023 13:10:48 Date Recorded Body height Body mass index (BMI) Body weight Provider Name and Address Organization Details Last Updated DateTime 06/25/2024 190.5 cm 30.6 kg/m2 340391.13 g [facility] [place] [facility] 06/25/2024 11:08:00 Social History None recorded. Functional Status None recorded. Mental Status None recorded. Family History Nothing Reported. Medical History No medical history recorded. Past Encounters Encounter ID Performer Location Encounter Start Date Encounter Closed Date Diagnosis/Indication Diagnosis SNOMED-CT Code Diagnosis ICD10 Code Diagnosis IMO Codes Diagnosis Note [id number] [facility] [address] [address] [place] [address] 12/19/2023 12:52:10 01/13/2024 11:33:37 Trigger finger of right hand 7949452000 7005793 M65.30 M65.331 Trigger th umb of left hand 8064183352 97596 M65.312 Arthritis of finger of right hand 6906251109 6537730 M13.258 [id number] Rachel Montalvo PA-C [place] [address] [place] [address] 06/25/2024 10:24:51 07/19/2024 16:07:16 Osteoarthritis of joint of bilateral hands 6789623249 78453 M19.041 M19.042 Health Concerns Section Related Observation LastModified by Organization Detai ls LastModified Time None Recorded Concern Status LastModified by Organization Details LastModified Time None Recorded Advance Directives Directive None Recorded Payers Insurance Date Sequence Insurance Name Policy Number Policy Palm Covered Member ID Palm Member ID Guarantor Name 07/19/2024 1 [employer] [id number] A Luca Crowe [id number] Luca Crowe 06/10/2024 1 MEDICARE B-[place]: [facility] [employer] Luca Crowe [id number] Luca Crowe Notes Date Note Type Note [...] or inciting event. 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 [...] ordered, obtained and reviewed independently today at [facility]: None indicated or performed today.Previous films: 3 [...] this plan. All questions were answered.Speech recognition greenkeeper software was used to create portions of this document. An attempt at proofreading has been made to minimize errors. Please call for corrections. Rachel Montalvo PA-C [address] [facility] [address], [place], [address], [facility] 12/19/2023 15:31:01 06/25/2024 text/html I am seeing [...] or inciting event. 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 [...] ordered, obtained and reviewed independently today at [facility]: None indicated or performed today.Previous films: 6 [...] this plan. All questions were answered.Speech recognition greenkeeper software was used to create portions of this document. An attempt at proofreading has been made to minimize errors. Please call for corrections. Rachel Montalvo PA-C [address] [place] [address] [address] [facility], [place], [address], [facility] 07/01/2024 11:53:04
--- OUTSIDE RECORDS SUMMARY | 2025-07-26 19:08 | XMS_ITS ---
Care Plan Created on: July 26, 2025 Luca Crowe : 1960 Sex: Male Author Organization [facility] Address [address] [place] [address] Phone Care Team Providers Care Case Investigator Name Role Phone Lee Fabian MD Primary Care Provider [phone] Active Problems Problem Noted Date Diagnosed Date Anemia 07/20/2025 Chronic GERD 07/20/2025 GI bleed 07/20/2025 Overview (07/20/2025): remote hx Smoker 07/20/2025 Septic joint of left knee joint ([facility] V24, S/[facility] V28) 07/20/2025 Hypothyroidism due to medication 07/15/2025 Stage 3b chronic kidney disease ([facility] V24, S/[facility] V28) 07/15/2025 Bursitis of right elbow 07/13/2025 Dementia ([facility] V24, [facility] V28) 05/17/2025 Hypothyroidism 05/17/2025 Acute diverticulitis 04/05/2025 Amputation of left lower ext remity below knee ([facility] V24, [facility] V28) 12/23/2024 Bacteremia 11/06/2024 Mitral valve vegetation 11/06/2024 Mitral valve regurgitation 11/06/2024 Acute osteomyelitis of left calcaneus ([facility] V24, [facility] V28) 11/02/2024 Endocarditis 11/02/2024 Pacemaker infection ([facility] V24) 11/02/2024 Non-pressure chronic ulcer o f other part of left foot with fat layer exposed ([facility] V24, [facility] V28) 10/27/2024 ISTAP type 3 skin tear of left forearm Non-pressure chronic ulcer l eft lower leg, limited to breakdown skin ([facility] V24, [facility] V28) 10/12/2024 Type 2 diabetes mellitus wit h foot ulcer (CODE) ([facility] V24, [facility] V28) 10/06/2024 Surgical wound, non healing 10/06/2024 Abrasion of anterior left lower leg 10/06/2024 Non-pressure chronic ulcer o f other part of left foot limited to breakdown of skin ([facility] V24, [facility] V28) 10/06/2024 Non-pressure chronic ulcer o f other part of left foot with unspecified severity ([facility] V24, [facility] V28) 10/06/2024 Non-pressure chronic ulcer o f left heel and midfoot with bone involvement without evidence of necrosis ([facility] V24, [facility] V28) 10/06/2024 CKD (chronic kidney disease) 09/16/2024 Osteomyelitis ([facility] V24, [facility] V28) Acute osteomyelitis of right ankle or foot ([facility] V24, [facility] V28) 09/03/2024 S/P debridement 08/31/2024 Diabetic infection of left foot ([facility] V24, [facility] V28) 08/31/2024 Foot infection 08/17/2024 Diabetic ulcer of left heel associated with type 2 diabetes mellitus, with fat layer exposed ([facility] V24, [facility] V28) 08/17/2024 Diabetic ulcer of left heel associated with type 1 diabetes mellitus, with fat layer exposed ([facility] V24, [facility] V28) 08/03/2024 Type 2 diabetes mellitus wit h foot ulcer ([facility] V24, [facility] V28) 08/02/2024 Non-pressure chronic ulcer o f other part of right foot with fat layer exposed ([facility] V24, [facility] V28) 08/02/2024 Charcot's joint, right ankle and foot 08/02/2024 Corns and callosities 08/02/2024 Essential (primary) hypertension 08/02/2024 Peripheral vascular disease, unspecified ([facility] V24) 08/02/2024 Type 2 diabetes mellitus wit h diabetic peripheral angiopathy without gangrene ([facility] V24, [facility] V28) 08/02/2024 Cataract of both eyes 07/20/2024 Obesity 07/07/2024 Renal osteodystrophy 06/01/2024 Complete atrioventricular block ([facility] V24, S[facility] V28) 05/30/2024 GERD (gastroesophageal reflux disease) Pain in extremity 05/30/2024 Chronic diastolic heart failure ([facility] V24, S[facility] V28) 04/28/2024 Iron deficiency 04/28/2024 Memory loss 04/28/2024 Vitamin D deficiency 04/28/2024 Stenosis of right carotid artery 12/29/2020 Overview (07/20/2025): Right carotid artery stenosis Paranoia ([facility] V24, [facility] V28) 08/15/2020 Insomnia due to other mental disorder 08/01/2020 Chronic midline low back pain 06/02/2020 Lumbar spondylosis 06/02/2020 Paroxysmal atrial fibrillation ([facility] V24, [facility] V28) 04/03/2018 Overview (07/20/2025): Paroxysmal atrial fibrillation S/P transmetatarsal amputati on of foot, right ([facility] V24, [facility] V28) 08/27/2017 RLS (restless legs syndrome) 10/09/2016 Erectile dysfunction 07/29/2016 Presence of permanent cardiac pacemaker 02/06/20 16 Overview (07/20/2025): For complete heart block after ablation for atrial fibrillation Atypical atrial flutter ([facility] V24, [facility] V2 8) 10/19/2015 MERVIN (obstructive sleep apnea) 01/31/2011 Overview (07/20/2025): BiPap Cervical radiculopathy 04/14/2008 Claudication ([facility] V24) 04/14/2008 Osteoarthritis of left knee 10/06/2006 Overview (07/20/2025): S/p TKR 05/2018 Hyperlipidemia 09/10/2006 Additional Health Concerns Active Problems Noted Date Diagnosed Date Impaired Tissue 08/10/2024 Education needed on impact of smoking on wound 1 10/10/2023 Education needed related to ulceration/compromised skin integrity. 08/10/2024 Goals Goal Patient Goal Type Associated Problems Recent Progress Patient-Stated? Author Pt goal General Yes Akhil Novak, OT Note: Eliminate the sac/swelling in the elbow; decrease pain STG 4-6 visits General No Akhil Novak, OT Note: Patient will report <=2/10 pain [...] HEP MOD I LTG 12 visits General No Akhil Novak, OT Note: Patient will report <=1/10 pain [...] omised skin integrity. No Susan Peralta RN Interventions Care Plan Interventions Intervention Entry [...]
--- OUTSIDE RECORDS SUMMARY | 2025-07-26 19:08 | XMS_ITS | Encounter Summary ---
Author Organization [facility] Address [address] [place] [address] Care Team Providers Care Inspector Weights And Measures Name Role Phone Lee Fabian MD Primary Care Provider [phone] Encounter Details Date Type Department Care Team (Late st Contact Info) Description 07/15/2025 Results Follow-Up Internal Medicine - [facility] [address] [place] [phone] Bev Nichols NP [address] [facility] [place] [address] Social History Tobacco Use Types Packs/Day Years [...] Info) Description 08/02/2025 11:15 AM EST Treatment [facility] Occupational Therapy [address] [place] [phone] Akhil Novak, OT documented as of this [...] documented as of this encounter Care Teams Inspector Weights And Measures Relationship Specialty Start Date End Date Lee Fabian MD [address] [place] [address] PCP - General Internal Medicine 08/03/24 documented as of this encounter
--- OUTSIDE RECORDS SUMMARY | 2025-07-26 19:08 | XMS_ITS | Encounter Summary ---
Author Organization [facility] Address [address] [place] [address] Care Team Providers Care Legal Secretary Receptionist Name Role Phone Lee Fabian MD Primary Care Provider Unavail able Vitaliy Fields MD Unavailable Dallas Camejo MD Unavailable Rolando Lopez MD Unavailable Cesar Fair MD Unavailable Daisy Her PT Unavailable Ena Mtz MD Unavailable Toni Rae MD Unavailable [phone] System, Provider Not In Unavailable Unavaila Manuel Soler MD Unavailable Encounter Details Date Type Department Care Team (Late st Contact Info) Description 10/19/2024 Scanned Document [facility] [address] [facility] [address] [place], [place] [id number] Alejandra Eddy [address] [place] [id number] Social History Tobacco Use Types Packs/Day Years Used Date Smoking Tobacco: Former Cigarettes 1 29.8 1 977 - 2004 Smokeless Tobacco: Never Alcohol Use Standard Drinks/Week Comments Yes 21 (1 standard drink = 0.6 oz pu re alcohol) [facility] Utilities Answer Date Recorded In the past 12 months has th e electric, gas, oil, or water [place] threatened to shut off services in your [...] in a nursing home (including now)? 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/10/24 09/16/2024 09/16/2024 11/24/2024 3:08 P M EST R/O Respiratory Disease 11/07/2024 11/07/202410/30 7:06 AM EST R/O Respiratory Disease 11/23/2024 11/23/202410/31 12:00 PM EST documented as of this encounter Care Teams Legal Secretary Receptionist Relationship Specialty Start Date End Date Lee Fabian MD PCP - General Internal Medicine 09/02/24 Vitaliy Fields MD [address] [place] [phone] Cardiovascular Disease 09/02/24 Dallas Camejo MD [address] [place] [address] Surgery, Orthopedic 09/02/24 Rolando Lopez MD [address] Transplant - Ph [address] [place] [address] Physician Nephrology 09/02/24 Cesar Fair MD [address] [facility] [address] [place] [id number] Surgery, Cardiac 11/08/24 Daisy Her, PT 85 [facility] [address] [place] [phone] [employer]sman[employer] Deliverer Medicine and Rehabilitation 11/18/24 Ena Mtz MD [address] [place] [address] Infectious Disease 04/12/25 Toni Rae MD [address] [place] [address] Surgery, Vascular 04/12/25 System, Provider Not In 04/12/25 Manuel Mesa MD [address] [place] [address] Physician Surgery, Orthopedic 04/19/25 documented as of this encounter
--- OUTSIDE RECORDS SUMMARY | 2025-07-26 19:08 | XMS_ITS | Clinical Summary ---
Author Organization [facility] Address [address] [facility] [address] [address] Phone Care Team Providers Care Lab Coordinator Name Role Phone Lee Fabian MD Primary Care Provider [phone] Allergies Active Allergy Reactions Criticality Noted Date [...] Office Visit [facility] [address] [address] Marlin Zarate ARNP Stage 3b chronic kidney disease (HCC) (Primary Dx); Hypertension; Renal osteodystrophy; Vitamin D deficiency, not otherwise specified; Acute cystitis without hematuria, not otherwise specified from Last 3 Months Immunizations Immunization Administration [...] Office Visit [facility] [address] [phone] Marlin Zarate ARNP [address] [phone] Health Maintenance Due Date Last Done Comments [...] exists Diabetes: Hemoglobin A1C 07/23/2025 025, 03/02/2025, 03/02/2025, Additional history exists Pneumococcal Vaccine: Peds (0 [...] Urine 11-30(A) 0 - 5 /hpf [facility] RBC, Urine None seen 0 - 2 /hpf [facility] Squamous Epithelial, Urine None seen 0 - 10 /hpf [facility] Casts None seen None seen /lpf [facility] Bacteria, Urine Many(A) None seen/Few [facility] 05/10/2025 10:2 6 AM EDT 05/10/2025 Rolando Lopez MD LAB MICROBIOLOGY - GENERAL OR DERABLES Final Result Performing Organization Address City/[facility]/ZIP Co de Phone Number [facility] [address] [place] [address] * (ABNORMAL) Protein, Total, Random Urine w/Creatinine (Protein/Creat Ratio) (05/10/2025 10:26 AM EDT) Creatinine, Ur 36.3 Not Estab. mg/dL [facility] Protein, Ur 40.7 Not Estab. mg/dL [facility] Urine Protein/Creati nine Ratio 1,121(H) 0 - 200 mg/g creat [facility] Urine specimen (specimen) Urine specimen obtained by clean catch procedure / Unknown 05/10/2025 10:26 AM EDT 05/10/2025 us Rolando Lopez MD LAB URINE ORDERABLES Final Re sult Performing Organization Address City/[facility]/ZIP Co de Phone Number [facility] [address] [place] [address] * (ABNORMAL) Urine Albumin / Creatinine Ratio (05/10/2025 10:26 AM EDT) Albumin, Urine 100.7 Not Estab. ug/mL [facility] Albumin/Creatin ine Ratio 277(H) 0 - 29 mg/g creat [facility] Comment: Normal: 0 - 29 Moderately increased: 30 - 300 Severely increased: >300 Urine specimen (specimen) Urine specimen obtained by clean catch procedure / Unknown 05/10/2025 10:26 AM EDT 05/10/2025 Rolando Lopez MD LAB URINE ORDERABLES Final Re sult Performing Organization Address [facility] de Phone Number [facility] [address] [place] [address] * (ABNORMAL) Vitamin D 25 Hydroxy (05/10/2025 10:26 AM EDT) Vitamin D, 25-OH, Total 26.4(L) 30.0 - 100.0 ng/mL [facility] Comment: Vitamin D deficiency has been defined by the [place] of [employer] and an Endocrine Society practice guideline as a level of serum 25-OH vitamin D less than 20 ng/mL (1,2). The Endocrine Society went on to further define vitamin D insufficiency as a level between 21 and 29 ng/mL (2). 1. IOM ([place] of [employer]). 2010. Dietary reference intakes for calcium and D. [place]: The National Academies Press. 2. Ileana MF, Mau NC, Jay JOY, et al. Evaluation, treatment, and prevention of vitamin D deficiency: an Endocrine Society clinical practice guideline. JCEM. 2010; 96(7):1911-30. Blood specimen (specimen) Venous blood / Unknown 05/10/2025 10:26 AM EDT 05/10/2025 Rolando Lopez MD LAB BLOOD ORDERABLES Final Re sult [facility] [address] [place] [address] * (ABNORMAL) Urinalysis with microscopic (05/10/2025 10:26 AM EDT) Specific [place], Urine 1.009 1.005 - 1.030 [facility] pH Urine 5.5 5.0 - 7.5 [facility] [phone] Color, Urine Yellow Yellow [facility] [phone] Appearance Urine Cloudy(A) Clear [facility] WBC Esterase Urine 2+(A) Negative [facility] Protein, Ur 1+(A) Negative/Tr srinivas [facility] Glucose, Ur 1+(A) Negative [facility] Ketones, Urine Negative Negative [facility] Blood Urine Negative Negative [facility] Bilirubin Urine Negative Negative [facility] Urobilinogen Urine 0.2 0.2 - 1.0 mg/dL [facility] Nitrite, Urine Positive(A) Negative [facility] [phone] Microscopic Examination See below: [facility] Comment:Microscopic was zander cated and was performed. Urine specimen (specimen) Urine specimen obtained by clean catch procedure / Unknown 05/10/2025 10:26 AM EDT 05/10/2025 us Rolando Lopez MD LAB URINE ORDERABLES Final Re sult [facility] [address] [place] [address] * CBC (05/10/2025 10:26 AM EDT) WBC 7.8 3.4 - 10.8 x10E3/uL [facility] RBC 4.20 4.14 - 5.80 x10E6/uL [facility] Hemoglobin 13.6 13.0 - 17.7 g/dL [facility] Hematocrit 40.4 37.5 - 51.0 % [facility] MCV 96 79 - 97 fL [facility] MCH 32.4 26.6 - 33.0 pg [facility] MCHC 33.7 31.5 - 35.7 g/dL [facility] RDW 14.5 11.6 - 15.4 % [facility] Platelets 212 150 - 450 x10E3/uL [facility] Blood specimen (specimen) Venous blood / Unknown 05/10/2025 10:26 AM EDT 05/10/2025 Rolando Lopez MD LAB BLOOD ORDERABLES Final Re sult [facility] [address] [place] [address] * (ABNORMAL) PTH, Intact (05/10/2025 10:26 AM EDT) Pathologist [facility] PTH 87(H) 15 - 65 pg/mL [facility] Blood specimen (specimen) Venous blood / Unknown 05/10/2025 10:26 AM EDT 05/10/2025 Rolando Lopez MD LAB BLOOD ORDERABLES Final Re sult [facility] [address] [place] [address] * (ABNORMAL) Magnesium (05/10/2025 10:26 AM EDT) Magnesium 2.4(H) 1.6 - 2.3 mg/dL [facility] Blood specimen (specimen) Venous blood / Unknown 05/10/2025 10:26 AM EDT 05/10/2025 Rolando Lopez MD LAB BLOOD ORDERABLES Final [facility]ult [facility] [address] [place] [address] * (ABNORMAL) Renal Function Panel (05/10/2025 10:26 AM EDT) Glucose 115(H) 70 - 99 mg/dL [facility] BUN 48(H) 8 - 27 mg/dL [facility] Creatinine 2.40(H) 0.76 - 1.27 mg/dL [facility] eGFR CKD-EPI CR 2020 29(L) >59 mL/min/1.7 3 [facility] BUN/Creatinine Ratio 20 10 - 24 [facility] Sodium 138 134 - 144 mmol/L [facility] Potassium 4.2 3.5 - 5.2 mmol/L [facility] Chloride 99 96 - 106 mmol/L [facility] Bicarbonate (CO2) 16(L) 20 - 29 mmol/L [facility] Calcium 9.3 8.6 - 10.2 mg/dL [facility] Albumin 4.6 3.9 - 4.9 g/dL [facility] Phosphorus 4.8(H) 2.8 - 4.1 mg/dL [facility] Blood specimen (specimen) Venous blood / Unknown 05/10/2025 10:26 AM EDT 05/10/2025 us Rolando Lopez MD LAB BLOOD ORDERABLES Final Re sult [facility] [address] [place] [phone] from Last 3 Months Insurance [employer] [facility] Adv PPO ([id number]) [employer] [facility] Adv PPO ([id number]) Care Teams Lab Coordinator Relationship Specialty Start Date End Date Lee Fabian MD PCP - General Internal Medicine 01/21/24
--- OUTSIDE RECORDS SUMMARY | 2025-07-26 19:08 | XMS_ITS | Clinical Summary ---
Author Organization [facility] Address [address] [place] [address] Phone Care Team Providers Care Commercial Leasing Manager Name Role Phone Lee Fabian MD Primary Care Provider [phone] Allergies Active Allergy Reactions Criticality Noted Date [...] 30 each 11 09/01/20 24 025 Active blood-glucose meter (OneTouch Ultra2 Meter) [facility] [place], [place] To check sugars twice daily E11.9 1 [...] E11.9 200 each 1 03/02/20 25 Active memantine (NAMENDA) 5 mg tablet Take 1 tablet (5 mg total) by mouth 2 (two) times a day. 03/09/20 25 Active glipiZIDE 2.5 mg tablet Take 2.5 mg by mouth 2 (two) times a day. 06/02/20 25 Active tirzepatide (Mounjaro) 7.5 mg/0.5 mL injectionIndic ations:Type 2 diabetes mellitus with foot ulcer, unspecified whether long term care administrator insulin use Inject 0.5 mL (7.5 mg total) under the skin every 7 (seven) days. 2 mL 5 06/02/20 25 Active metFORMIN (GLUCOPHAGE) 500 mg tablet Take 1 tablet in the morning with breakfast 06/02/20 25 Active levothyroxine (SYNTHROID, LEVOTHROID) 150 mcg tablet Take 1 tablet (150 mcg total) by mouth 1 (one) time each day. 30 each 07/05/20 25 026 Active amLODIPine (NORVASC) 5 mg tablet Take 2 tablets (10 mg total) by mouth 1 (one) time each day. 90 tablet 07/13/20 25 Active buPROPion SR (WELLBUTRIN SR) 150 mg 12 hr tablet Take 1 tablet (150 mg total) by mouth 2 (two) times a day. Do not crush, chew, or split. 60 each 1 10/29/19 25 025 Discontinued amLODIPine (NORVASC) 5 mg tablet Take 1 tablet (5 mg total) by mouth 1 (one) time each day. 11/26/19 25 025 Discontinued(R eorder) ketorolac (ACULAR) 0.5 % ophthalmic solution 1 drop 2 (two) times a day. Operative eye 02/03/20 025 Discontinued levothyroxine (SYNTHROID, LEVOTHROID) 137 mcg tablet Take 1 tablet (137 mcg total) by mouth 1 (one) time each day. 30 each 11 06/03/20 25 Discontinued(F ormulary change) diclofenac (VOLTAREN) 1 % topical gel Apply 1 g topically 3 (three) times a day for 10 days. 30 g 07/01/20 025 Additional Information Patient not taking.Reported on 07/25/2025 Active Problems Problem Noted Date Diagnosed Date Anemia 07/20/2025 Chronic GERD 07/20/2025 GI bleed 07/20/2025 Overview (07/20/2025): remote hx Smoker 07/20/2025 Septic joint of left knee joint ([facility] V24, CM S/[facility] V28) 07/20/2025 Hypothyroidism due to medication 07/15/2025 Stage 3b chronic kidney disease ([facility] V24, CM S/HCC V28) 07/15/2025 Bursitis of right elbow 07/13/2025 Dementia ([facility] V24, CMS/[facility] V28) 05/17/2025 Hypothyroidism 05/17/2025 Acute diverticulitis 04/05/2025 Amputation of left lower ext remity below knee ([facility] V24, [facility] V28) 12/23/2024 Bacteremia 11/06/2024 Mitral valve vegetation 11/06/2024 Mitral valve regurgitation 11/06/2024 Acute osteomyelitis of left calcaneus ([facility] V24, CMS/HCC V28) 11/02/2024 Endocarditis 11/02/2024 Pacemaker infection ([facility] V24) 11/02/2024 Non-pressure chronic ulcer o f other part of left foot with fat layer exposed ([facility] V24, [facility] V28) 10/27/2024 ISTAP type 3 skin tear of left forearm Non-pressure chronic ulcer l eft lower leg, limited to breakdown skin ([facility] V24, CMS/[facility] V28) 10/12/2024 Type 2 diabetes mellitus wit h foot ulcer (CODE) ([facility] V24, [facility] V28) 10/06/2024 Surgical wound, non healing 10/06/2024 Abrasion of anterior left lower leg 10/06/2024 Non-pressure chronic ulcer o f other part of left foot limited to breakdown of skin ([facility] [place] V24, [facility] V28) 10/06/2024 Non-pressure chronic ulcer o f other part of left foot with unspecified severity ([facility] V24, [facility] V28) 10/06/2024 Non-pressure chronic ulcer o f left heel and midfoot with bone involvement without evidence of necrosis ([facility] V24, [facility] V28) 10/06/2024 CKD (chronic kidney disease) 09/16/2024 Osteomyelitis ([facility] V24, [facility] V28) Acute osteomyelitis of right ankle or foot ([facility] V24, [facility] V28) 09/03/2024 S/P debridement 08/31/2024 Diabetic infection of left foot ([facility] V24, [facility] V28) 08/31/2024 Foot infection 08/17/2024 Diabetic ulcer of left heel associated with type 2 diabetes mellitus, with fat layer exposed ([facility] V24, [facility] V28) 08/17/2024 Diabetic ulcer of left heel associated with type 1 diabetes mellitus, with fat layer exposed ([facility] V24, [facility] V28) 08/03/2024 Type 2 diabetes mellitus wit h foot ulcer ([facility] [place] V24, [facility] V28) 08/02/2024 Non-pressure chronic ulcer o f other part of right foot with fat layer exposed ([facility] V24, [facility] V28) 08/02/2024 Charcot's joint, right ankle and foot 08/02/2024 Corns and callosities 08/02/2024 Essential (primary) hypertension 08/02/2024 Peripheral vascular disease, unspecified ([facility] V24) 08/02/2024 Type 2 diabetes mellitus wit h diabetic peripheral angiopathy without gangrene ([facility] V24, [facility] V28) 08/02/2024 Cataract of both eyes 07/20/2024 Obesity 07/07/2024 Renal osteodystrophy 06/01/2024 Complete atrioventricular block ([facility] V24, CM S/HCC V28) 05/30/2024 GERD (gastroesophageal reflux disease) Pain in extremity 05/30/2024 Chronic diastolic heart failure (CMS/[facility] V24, CM S/HCC V28) 04/28/2024 Iron deficiency 04/28/2024 Memory loss 04/28/2024 Vitamin D deficiency 04/28/2024 Stenosis of right carotid artery 12/29/2020 Overview (07/20/2025): Right carotid artery stenosis Paranoia ([facility] V24, [facility] V28) 08/15/2020 Insomnia due to other mental disorder 08/01/2020 Chronic midline low back pain 06/02/2020 Lumbar spondylosis 06/02/2020 Paroxysmal atrial fibrillation ([facility] V24, CMS /[facility] V28) 04/03/2018 Overview (07/20/2025): Paroxysmal atrial fibrillation S/P transmetatarsal amputati on of foot, right ([facility] V24, [facility] V28) 08/27/2017 RLS (restless legs syndrome) 10/09/2016 Erectile dysfunction 07/29/2016 Presence of permanent cardiac pacemaker 02/06/20 16 Overview (07/20/2025): For complete heart block after ablation for atrial fibrillation Atypical atrial flutter ([facility] V24, [facility] V2 8) 10/19/2015 MERVIN (obstructive sleep apnea) 01/31/2011 Overview (07/20/2025): BiPap Cervical radiculopathy 04/14/2008 Claudication ([facility] V24) 04/14/2008 Osteoarthritis of left knee 10/06/2006 Overview (07/20/2025): S/p TKR 05/2018 Hyperlipidemia 09/10/2006 Encounters Date Type Department Care Team Description 07/25/2025 2:40 PM EDT Office Visit Gastroenterology - [place] [address] [facility] [address] [place] [phone] Fatou Weaver PA Diverticulosis (Primary Dx); Pancreas cyst 07/19/2025 11:00 AM EDT Treatment [facility] Occupational Therapy [address] [place] [phone] Akhil Novak, OT Bursitis of right elbow, unspecified bursa (Primary Dx) 07/15/2025 10:30 AM EDT Office Visit Internal Medicine - [address] [phone] Bev Nichols NP Essential (primary) hypertension (Primary Dx); Type 2 diabetes mellitus with diabetic peripheral angiopathy without gangrene, without long-term current use of insulin ([facility] V24, CMS/HCC V28); Atypical atrial flutter (CMS/HCC V24, CMS/HCC V28); Chronic diastolic heart failure ([facility]/HCC V24, CMS/HCC V28); Hypothyroidism due to medication; Stage 3b chronic kidney disease ([facility]/HCC V24, CMS/HCC V28); Dysuria; Urinary urgency 07/15/2025 Results Follow-Up Internal Medicine - [address] [phone] Bev Nichols NP 07/13/2025 10:00 AM EDT Evaluation [facility] Occupational Therapy [address] [place] [phone] Akhil Novak, OT Bursitis of right elbow, unspecified bursa (Primary Dx) 07/13/2025 Plan of Care Documentation [facility] Occupational Therapy [address] [place] [phone] 07/05/2025 Results Follow-Up Endocrinology - [address] [phone] Geeta Person PA 07/01/2025 2:30 PM EDT Office Visit Walk-In Clinic - [address] [phone] Lalo Vazquez PA Olecranon bursitis of right elbow (Primary Dx) 06/30/2025 Telephone Internal Medicine - [address] [place] [phone] Lee Fabian MD 06/13/2025 Billing Patient Not Present [facility] [place] [phone] Lee Fabian MD Aftercare following joint replacement surgery, unspecified joint (Primary Dx); Presence of right artificial knee joint; Type 2 diabetes mellitus with diabetic peripheral angiopathy without gangrene, unspecified whether care home insulin use ([facility] V24, [facility] V28); Urinary tract infection without hematuria, site unspecified; Chronic diastolic (congestive) heart failure ([facility] V24, [facility] V28); Chronic kidney disease, stage 3a ([facility] V24, [facility] V28); Anemia in stage 3a chronic kidney disease ([facility] V24, [facility] V28) 06/06/2025 Telephone Internal Medicine - [address] [phone] Lee Fabian MD 06/02/2025 3:30 PM EDT Office Visit Endocrinology [address] [phone] Geeta Person PA Type 2 diabetes mellitus with foot ulcer, unspecified whether care home insulin use ([facility] V24, [facility] V28) (Primary Dx); Hypothyroidism, unspecified type from Last 3 Months Immunizations Immunization Administration [...] complete atrioventricular block (CMS/HCC V24, CMS/HCC V28) Hypothyroidism 05/17/2025 Family History Medical History Relation Name Comments [...] Pulse 64 07/25/2025 2:38 PM EDT Temperature 36.7 C (98.1 F) 07/01/2025 2:38 PM EDT Respiratory Rate 17 04/07/2025 7:52 AM EDT Oxygen Saturation 96% 07/25/2025 2:38 PM EDT Inhaled Oxygen Concentration - - Weight 132 kg (292 lb) 07/25/2025 2:38 PM EDT Height 190.5 cm (6' 3 ) 07/25/2025 2:38 PM EDT Body Mass Index 36.5 07/25/2025 2:38 PM EDT Plan of Treatment Upcoming Encounters Date Type Department Care Team (Late st Contact Info) Description 08/02/2025 11:15 AM EST [facility] Occup[facility] [address] [phone] Akhil Novak, OT Health Maintenance Due Date Last Done Comments Hepatitis A Vaccines (1 of 2 - Risk 2-dose series) 11/30/1979 Pneumococcal Vaccine: 50+ Years (2 of 2 - PCV) 01/05/2018 01/05/2017, 11/11/2015 HIV Screening 09/07/2022 Medicare Annual Wellness Visit 09/07/2022 Social Influencers of Health Screening 09/07/2022 Depression Screening 09/29/2024 Diabetes: Annual Retina Eye Exam 03/17/2025 03/17/2024 Diabetes: Annual Foot Exam 08/25/2025 08/25/2024 Diabetes: Blood Sugar Control Test (HGBA1C) 11/30/2025 06/02/2025, 04/22/2025, 03/02/2025, Additional history exists COVID-19 Vaccine (8 - Pfizer risk ) 01/02/2026 07/04/2025, 07/08/2023, 09/10/2022, Additional history exists Diabetes: Annual Urine Albumin-Creatinine Ratio (uACR) 05/10/2026 05/10/2025, 04/14/2024, 04/14/2024 Diabetes: Annual GFR (Glomerular Filtration Rate) 07/15/2026 07/15/2025, 05/17/2025, 05/17/2025, Additional history exists Hypertension/CHF/CAD Annual BMP Blood Test 07/15/2026 07/15/2025, 05/17/2025, 05/17/2025, Additional history exists Cholesterol Screening (Lipid Panel) 08/20/2029 08/20/2024, 07/22/2024, 07/22/2024, Additional history exists DTaP,Tdap,and Td Vaccines (3 - Td or Tdap) 04/09/2030 04/09/2020, 12/16/2017 Colorectal Cancer Screening: Colonoscopy 05/12/2033 05/12/2023 Hepatitis C Screening Completed 12/24/2017 Zoster Vaccines Completed 04/13/2018, 12/16/2017 RSV Immunization Adult Patients Completed 10/28/2023 Influenza Vaccine Completed 07/04/2025, , 07/08/2023, Additional history exists HIB Vaccines Aged Out [...] Peralta RN Medical Devices Implanted Type Area Training Development Specialist Device Identifier Shelf Expiration Date Model / Serial / Lot Cardiac Pacemaker Cardiac Pacemaker Left: Shoulder [employer] - CARDIAC RHYTH-CRDM Procedures Procedure Name Priority Date/Time Associated Diagnosis Comments MANRIQUE URINE CULTURE TUBE Routine 07/15/20 10:22 AM EDT Dysuria Urinary urgency URINALYSIS WITH REFLEX MICROSCOPIC AND CULTURE Routine 07/15/2025 10:22 AM EDT Dysuria Urinary urgency URINALYSIS WITH REFLEX MICROSCOPIC AND CULTURE Routine 07/15/2025 10:22 AM EDT Dysuria Urinary urgency BASIC METABOLIC PANEL Routine 07/15/2025 10:22 AM EDT Stage 3b chronic kidney disease (CMS/HCC V24, CMS/HCC V28) TRIIODOTHYRONINE FREE Routine 07/01/2025 3:02 PM EDT [...] diabetes mellitus with foot ulcer, unspecified whether care home insulin use ([facility] V24, [facility] V28) LIPID PANEL WITH REFLEX TO DIRECT LDL Routine 08/20/2024 6:25 AM EST URINE ALBUMIN CREATININE RATIO Routine 04/14/2024 DIABETES EYE EXAM Routine 03/17/2024 COLONOSCOPY Routine 05/12/2023 HEPATITIS C SCREENING Routine 12/24/2017 from Last 3 Months or Most Recently Relevant to Health Maintenance Results * (ABNORMAL) Urinalysis with reflex microscopic and culture (07/15/2025 10:22 AM EDT) Specific Sullivan Urine 1.009 1.003 - 1.030 LAB URINALYSIS - AUTOMATED METHOD 07/15/2025 11:[address] [facility] pH, Urine 5.0 5.0 - 8.0 pH LAB URINALYSIS - AUTOMATED METHOD 07/15/2025 11:[address] [facility] Leukocytes, Urine Negative Negative LAB URINALYSIS - AUTOMATED METHOD 07/15/2025 11:[address] [facility] Nitrite, Urine Negative Negative LAB URINALYSIS - AUTOMATED METHOD 07/15/2025 11:[address] [facility] Protein, Urine 30(A) <=Trace mg/dL LAB URINALYSIS - AUTOMATED METHOD 07/15/2025 11:[address] [facility] Glucose, Urine 500(A) Negative mg/dL LAB URINALYSIS - AUTOMATED METHOD 07/15/2025 11:[address] [facility] Ketones, Urine Negative Negative mg/dL LAB URINALYSIS - AUTOMATED METHOD 07/15/2025 11:[address] [facility] Urobilinogen, Urine 0.2 0.2 - 1.0 mg/dL LAB URINALYSIS - AUTOMATED METHOD 07/15/2025 11:[address] [facility] Bilirubin, Urine Negative Negative LAB URINALYSIS - AUTOMATED METHOD 07/15/2025 11:[address] [facility] Blood, Urine Negative Negative LAB URINALYSIS - AUTOMATED METHOD 07/15/2025 11:[address] [facility] RBC, Urine 2.6 0 - 4 /HPF LAB URINALYSIS - AUTOMATED METHOD 07/15/2025 11:[address] [facility] WBC, Urine 0.2 0 - 4 /HPF LAB URINALYSIS - AUTOMATED METHOD 07/15/2025 11:[address] [facility] Squamous Epithelial, Urine 2 0 - 60 /LPF LAB URINALYSIS - AUTOMATED METHOD 07/15/2025 11:[address] [facility] Bacteria, Urine Negative Negative /HPF LAB URINALYSIS - AUTOMATED METHOD 07/15/2025 11:[address] [facility] Hyaline Casts, Urine 0.4 0 - 3 /LPF LAB URINALYSIS - AUTOMATED METHOD 07/15/2025 11:[address] [facility] Urine Urine specimen obtained by clean catch procedure / Unknown Non-blood Collection / Unknown 07/15/2025 10:22 AM EDT 07/15/2025 10:22 AM EDT us Bev Nichols NP LAB URINE ORDERABLES Final Resu lt [facility] [address] [place] [address], * Manrique urine culture tube (07/15/2025 10:22 AM EDT) Extra Tube Hold for add-ons. 07/15/2025 12:01 PM T [facility] Comment:Auto resulted. Urine Urine specimen obtained by clean catch procedure / Unknown Non-blood Collection / Unknown 07/15/2025 10:22 AM EDT 07/15/2025 10:22 AM EDT Bev Nichols NP LAB URINE ORDERABLES Final Resu lt [facility] [address] [place] [address], * (ABNORMAL) Basic metabolic panel (07/15/2025 10:22 AM EDT) Pathologist [facility] Sodium 138 133 - 145 mmol/L LAB CHEMISTRY METHOD 07/15/2025 2:[address] [facility] Potassium 4.8 3.5 - 5.5 mmol/L LAB CHEMISTRY METHOD 07/15/2025 2:[address] [facility] Chloride 102 96 - 110 mmol/L LAB CHEMISTRY METHOD 07/15/2025 2:[address] [facility] CO2 24 21 - 32 mmol/L LAB CHEMISTRY METHOD 07/15/2025 2:[address] [facility] Anion Gap 12(H) 3 - 11 LAB CHEMISTRY METHOD 07/15/2025 2:[address] [facility] Glucose 197(H) 70 - 100 mg/dL LAB CHEMISTRY METHOD 07/15/2025 2:[address] [facility] BUN 42(H) 5 - 25 mg/dL LAB CHEMISTRY METHOD 07/15/2025 2:[address] [facility] Creatinine 2.04(H) 0.70 - 1.30 mg/dL LAB CHEMISTRY METHOD 07/15/2025 2:47 PM EDT [facility] eGFR 36(L) >=60 mL/min/1. 73m2 LAB CHEMISTRY METHOD 07/15/2025 2:47 PM EDT [facility] Comment:Calculation based on the Chronic Kidney Disease Epidemiology Collaboration (CKD-EPI) equation refit without adjustment for race. BUN/Creatinine Ratio 20.6 LAB CHEMISTRY METHOD 07/15/2025 2:47 PM EDT [facility] Calcium 8.7 8.5 - 10.5 mg/dL LAB CHEMISTRY METHOD 07/15/2025 2:47 PM EDT [facility] Blood Venous blood specimen / Unknown Venipuncture / Unknown 07/15/2025 10:22 AM EDT 07/15/2025 10:22 AM EDT us Bev Nichols NP LAB BLOOD ORDERABLES Final Resu lt Performing Organization Address City/[facility]/ZIP Co de Phone Number [facility] [address] [place] [address], [place] [phone] * (ABNORMAL) Thyroid stimulating hormone with reflex to free t4 and free t3 (07/01/2025 3:02 PM EDT) Only the most recent of2 resultswithin the time period is included. TSH 26.72(H) 0.40 - 4.00 mcIU/mL LAB CHEMISTRY METHOD 07/01/2025 7:03 PM EDT [facility] Blood Venous blood specimen / Unknown Venipuncture / Unknown 07/01/2025 3:02 PM EDT 07/01/2025 3:02 PM EDT us Geeta PATTON LAB BLOOD ORDERABLES Final Result Performing Organization Address [facility]/ZIP Co de Phone Number [facility] [address] [place] [address], [place] [phone] * Free thyroxine with reflex to free triiodothyronine (07/01/2025 3:02 PM EDT) Only the most recent of2 resultswithin the time period is included. Free T4 0.85 0.70 - 1.80 ng/dL LAB CHEMISTRY METHOD 07/01/2025 8:29 PM EDT [facility] Blood Venous blood specimen / Unknown Venipuncture / Unknown 07/01/2025 3:02 PM EDT 07/01/2025 3:02 PM EDT Geeta PATTON LAB BLOOD ORDERABLES Final Result [facility] [address] [place] [address], [place] [phone] * (ABNORMAL) Triiodothyronine free (07/01/2025 3:02 PM EDT) Only the most recent of2 resultswithin the time period is included. T3, Free 179(L) 230 - 420 pcg/dL LAB CHEMISTRY METHOD 07/01/2025 8:59 PM EDT [facility] Blood Venous blood specimen / Unknown Venipuncture / Unknown 07/01/2025 3:02 PM EDT 07/01/2025 3:02 PM EDT Geeta PATTON LAB BLOOD ORDERABLES Final Result [facility] [address] [place] [address], [place] [phone] * Hemoglobin A1c (06/02/2025 4:04 PM EDT) [facility] Hemoglobin A1C 6.2 <6.5 % LAB CHEMISTRY METHOD 06/02/2025 9:23 PM EDT [facility] Mean Bld Glu Estim. 131 mg/dL LAB CHEMISTRY METHOD 06/02/2025 9:23 PM EDT [facility] Blood Venous blood specimen / Unknown Venipuncture / Unknown 06/02/2025 4:04 PM EDT 06/02/2025 4:04 PM EDT us Geeta PATTON LAB BLOOD ORDERABLES Final Result Performing Organization Address City/[facility]/ZIP Co de Phone Number [facility] [address] [place] [address], [place] [phone] * Lipid panel with reflex to direct LDL (08/20/2024 6:25 AM EST) [facility] Cholesterol 123 0 - 200 mg/dL LAB CHEMISTRY METHOD 08/20/2024 7:39 AM EST [facility] Triglycerides 102 0 - 150 mg/dL LAB CHEMISTRY METHOD 08/20/2024 7:39 AM [facility] HDL 53 >=40 mg/dL LAB CHEMISTRY METHOD 08/20/2024 7:39 AM EST [facility] LDL Calculated 50 0 - 100 mg/dL LAB CHEMISTRY METHOD 08/20/2024 7:39 AM [facility] VLDL Cholesterol Linus 20.4 mg/dL LAB CHEMISTRY METHOD 08/20/2024 7:39 AM [facility] Non HDL Chol. (LDL+VLDL) 70 <145 mg/dL LAB CHEMISTRY METHOD 08/20/2024 7:39 AM [facility] Chol/HDL Ratio 2.3 0.0 - 4.4 LAB CHEMISTRY METHOD 08/20/2024 7:39 AM [facility] Blood Venous blood specimen / Unknown Venipuncture / Unknown 08/20/2024 6:25 AM EST 08/20/2024 7:03 AM EST us Jefferson Rendon MD LAB BLOOD ORDERABLES Final Resu lt Performing Organization Address [facility]/ZIP Co de Phone Number [facility] [address] [place] [address], [place] [phone] * HM Urine Albumin Creatinine Ratio (04/14/2024) [facility] Urine Albumin Creatinine Ratio Abstracted [facility] Provider HEALTH MAINTENANCE Final Result * Diabetes Eye Exam (03/17/2024) [facility] Diabetes: Annual Retina Eye Exam Abstracted Result [facility] Provider HEALTH MAINTENANCE Final Result * Colonoscopy (05/12/2023) [facility] Colonoscopy No Interpretation , Abstracted Anatomical Region Laterality Modality Other [facility] Provider HEALTH MAINTENANCE Final Result * Hepatitis C Screening (12/24/2017) [facility] Hepatitis C Screening Abstracted [facility] Provider HEALTH MAINTENANCE Final Result from Last 3 Months or Most Recently Relevant to Health Maintenance Additional Health Concerns Active Problems Noted Date Diagnosed Date Impaired Tissue 08/10/2024 Education needed on impact of smoking on wound 1 10/10/2023 Education needed related to ulceration/compromised skin integrity. 08/10/2024 Insurance [employer] MEDICARE ADVANTAGE Advance Directives Documents on File Type Date Recorded Patient Environmental Services Supervisor Expl anation Advance Directives and Living Will [...] First Alternate Health Care Agent Care Teams Commercial Leasing Manager Relationship Specialty Start Date End Date Lee Fabian MD [address] [place] [address] PCP - General Internal Medicine 08/03/24
--- OUTSIDE RECORDS SUMMARY | 2025-07-26 19:08 | XMS_ITS | Encounter Summary ---
Author Organization [facility] Address [address] [place] [address] Care Team Providers Care Tuber Operator Name Role Phone Lee Fabian MD Primary Care Provider Unavail able Vitaliy Fields MD Unavailable [phone] Dallas Camejo MD Unavailable Rolando Lopez MD Unavailable Cesar Fair MD Unavailable Daisy Her PT Unavailable Ena Mtz MD Unavailable Toni Rae MD Unavailable [phone] System, Provider Not In Unavailable Unavaila Manuel Soler MD Unavailable [phone] Encounter Details Date Type Department Care Team (Late st Contact Info) Description 10/19/2024 Scanned Document [facility] [address] [place], [place] [address] Alejandra Eddy [address] [place] [address] Social History Tobacco Use Types Packs/Day Years Used Date Smoking Tobacco: Former Cigarettes 1 29.8 1 977 - 2004 Smokeless Tobacco: Never Alcohol Use Standard Drinks/Week Comments Yes 21 (1 standard drink = 0.6 oz pu re alcohol) [facility] Utilities Answer Date Recorded In the past 12 months has th e electric, gas, oil, or water [employer] threatened to shut off services in your [...] AM EST Office Visit [facility] 7 [facility] [address] [place] [address] Manuel Mesa MD [address] [facility] [address] [place] [address] documented as of this encounter Visit Diagnoses Not on filedocumented in this encounter 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/10/24 09/16/2024 09/16/2024 11/24/2024 3:08 P M EST R/O Respiratory Disease 11/07/2024 11/07/202410/30 7:06 AM EST R/O Respiratory Disease 11/23/2024 11/23/202410/31 12:00 PM EST documented as of this encounter Care Teams Tuber Operator Relationship Specialty Start Date End Date Lee Fabian MD PCP - General Internal Medicine 09/02/24 Vitaliy Fields MD [address] [place] [address] Cardiovascular Disease 09/02/24 Dallas Camejo MD [address] [place] [address] Surgery, Orthopedic 09/02/24 Rolando Lopez MD [address] Transplant - Ph 14 [place] [address] Physician Nephrology 09/02/24 Cesar Fair MD 85 [facility] [address] [place] [phone] Surgery, Cardiac 11/08/24 Daisy Her, PT 85 [facility] [address] [place] [address] Electrical LinesworkerInsurance Sales Executive Medicine and Rehabilitation 11/18/24 Ena Mtz MD [address] [place] [address] Infectious Disease 04/12/25 Toni Rae MD [address] [place] [address] Surgery, Vascular 04/12/25 System, Provider Not In 04/12/25 Manuel Mesa MD [address] [place] [address] Physician Surgery, Orthopedic 04/19/25 documented as of this encounter
--- OUTSIDE RECORDS SUMMARY | 2025-07-26 19:08 | XMS_ITS | Encounter Summary ---
Author Organization [facility] Address [address] [place] [address] Care Team Providers Care Bricklayer Name Role Phone Lee Fabian MD Primary Care Provider [phone] Encounter Details Date Type Department Care Team (Late st Contact Info) Description 07/05/2025 Results Follow-Up Endocrinology - [address] [phone] Geeta Person PA [facility] [address] Social History Tobacco Use Types Packs/Day Years [...] Info) Description 08/02/2025 11:15 AM EST Treatment [facility] Occupational Therapy [address] [place] [phone] Akhil Novak, YOVANNY Scheduled Orders Name Type Priority Associated Diagnoses [...] documented as of this encounter Care Teams Bricklayer Relationship Specialty Start Date End Date Lee Fabian MD [address] [place] [address] PCP - General Internal Medicine 08/03/24 documented as of this encounter
--- OUTSIDE RECORDS SUMMARY | 2025-07-26 19:08 | XMS_ITS | Encounter Summary ---
Author Organization [facility] Address [address] [place] [address] Care Team Providers Care Manager Merchandise Name Role Phone Lee Fabian MD Primary Care Provider Unavail able Vitaliy Fields MD Unavailable [phone] Dallas Caemjo MD Unavailable [phone] Rolando Lopez MD Unavailable Cesar Fair MD Unavailable Daisy Her PT Unavailable [phone] Ena Mtz MD Unavailable [phone] Toni Rae MD Unavailable [phone] System, Provider Not In Unavailable Unavaila Manuel Soler MD Unavailable Encounter Details Date Type Department Care Team (Late st Contact Info) Description 12/07/2024 Scanned Document [facility] [address] [facility] [address] [place], [place] [address] Alejandra Eddy [address] [place] [address] Social History Tobacco Use Types Packs/Day Years Used Date Smoking Tobacco: Former Cigarettes 1 29.8 1 977 - 2004 Smokeless Tobacco: Never Alcohol Use Standard Drinks/Week Comments Yes 21 (1 standard drink = 0.6 oz pu re alcohol) [facility] Utilities Answer Date Recorded In the past 12 months has th e electric, gas, oil, or water [employer] threatened to shut off services in your [...] time in the past 12 m [facility], were you homeless or living in a retirement (including now)? No 11/03/2024 Sex and Gender [...] AM EST Office Visit [facility] [address] [facility] [address] [place] [address] Manuel Mesa MD 499 [facility] [address] [place] [address] documented as of this encounter Visit Diagnoses Not on filedocumented in this encounter Care Teams Manager Merchandise Relationship Specialty Start Date End Date Lee Fabian MD PCP - General Internal Medicine 09/02/24 Vitaliy Fields MD [address] [place] [address] Cardiovascular Disease 09/02/24 Dallas Camejo MD 7 [place] [address] Surgery, Orthopedic 09/02/24 Rolando Lopez MD [address] Transplant - 14 [place] [address] Physician Nephrology 09/02/24 Cesar Fair MD 85 [facility] 9[address] [place] [address] Surgery, Cardiac 11/08/24 Daisy Her, PT 85 [facility] [address] [place] [address] Honing Machine Set Up OperatorRuling Machine Feeder Medicine and Rehabilitation 11/18/24 Ena Mtz MD [address] [place] [address] Infectious Disease 04/12/25 Toni Rae MD [address] [address] Surgery, Vascular 04/12/25 System, Provider Not In 04/12/25 Manuel Mesa MD [address] [place] [address] Physician Surgery, Orthopedic 04/19/25 documented as of this encounter
--- OUTSIDE RECORDS SUMMARY | 2025-07-26 19:09 | XMS_ITS | Encounter Summary ---
Author Organization [facility] Address [address] [place] [address] Care Team Providers Care Social Services Technician Name Role Phone Lee Fabian MD Primary Care Provider Unavail able Vitaliy Fields MD Unavailable Dallsa Camejo MD Unavailable Rolando Lopez MD Unavailable Cesar Fair MD Unavailable Daisy Her PT Unavailable Ena Mtz MD Unavailable Toni Rae MD Unavailable [phone] System, Provider Not In Unavailable Unavaila Manuel Soler MD Unavailable [phone] Encounter Details Date Type Department Care Team (Late st Contact Info) Description 12/15/2024 Scanned Document [facility] [address] Dallas Camejo MD [address] [place] [address] Social History Tobacco Use Types Packs/Day Years Used Date Smoking Tobacco: Former Cigarettes 1 29.8 1 977 - 2004 Smokeless Tobacco: Never Alcohol Use Standard Drinks/Week Comments Yes 21 (1 standard drink = 0.6 oz pu re alcohol) [facility] Utilities Answer Date Recorded In the [...] time in the past 12 m [facility], were you homeless or living in a [...] AM EST Office Visit [facility] [address] [address] Manuel Mesa MD [address] [facility] [address] [place] [address] documented as of this encounter Visit Diagnoses Not on filedocumented in this encounter Care Teams Social Services Technician Relationship Specialty Start Date End Date Lee Fabian MD PCP - General Internal Medicine 09/02/24 Vitaliy Fields MD [address] [place] [address] Cardiovascular Disease 09/02/24 Dallas Camejo MD [address] [place] [address] Surgery, Orthopedic 09/02/24 Rolando Lopez MD [address] [place] [address] Transplant - 14 [place] [address] Physician Nephrology 09/02/24 Cesar Fair MD 85 [facility] 919 [place] [address] Surgery, Cardiac 11/08/24 Daisy Her, PT 85 [facility] [address] [place] [address] Abatement WorkerFine Patcher Medicine and Rehabilitation 11/18/24 Ena Mtz MD [address] [place] [address] Infectious Disease 04/12/25 Toni Rae MD [address] [place] [address] Surgery, Vascular 04/12/25 System, Provider Not In 04/12/25 Manuel Mesa MD [address] [place] [address] Physician Surgery, Orthopedic 04/19/25 documented as of this encounter
--- OUTSIDE RECORDS SUMMARY | 2025-07-26 19:09 | XMS_ITS | Clinical Summary ---
Author Organization [facility] Address [address] [facility] [address] [place] [address] Phone Care Team Providers Care Satellite Specialist Name Role Phone Pcp, Unknown Primary Care [...] Payer (Ef fective 2018-Present) Name:Sebastien Luca Member ID:[id number] Relation to Subscriber:Self Name:Angeles Crowen Subscriber ID:[id number] Payer ID:[id number] Group ID:Not on file Type:Medicare Address: [facility] Schedulicity [address] [place] [phone] [employer] MEDEX SUPPLEMENT MEDICARE PART A & B [employer] MEDEX SUPPLEMENT MEDICARE PART A & B [employer] MEDEX SUPPLEMENT MEDICARE PART A & B [employer] MEDEX SUPPLEMENT MEDICARE PART A & B [employer] MEDEX SUPPLEMENT MEDICARE PART A & B [employer] MEDEX SUPPLEMENT MEDICARE PART A & B [employer] MEDEX SUPPLEMENT MEDICARE PART A & B [employer] MEDEX SUPPLEMENT MEDICARE PART A & B [employer] MEDEX SUPPLEMENT MEDICARE PART A & B [employer] MEDEX SUPPLEMENT Care Teams Satellite Specialist Relationship Specialty Start Date End Date Pcp, Unknown PCP - General 04/09/20 Additional Source Comments The information contained in this document represents components of the legal health record. It is not the complete legal health record.[facility]
--- OUTSIDE RECORDS SUMMARY | 2025-07-26 19:09 | XMS_ITS | Clinical Summary ---
Author Organization [facility] Address [address] [place] [address] Care Team Providers Care Flight Attendant Ramp Name Role Phone Lee Fabian MD Primary Care Provider Unavail able Vitaliy Fields MD Unavailable Dallas Camejo MD Unavailable Rolando Lopez MD Unavailable [phone] Cesar Fair MD Unavailable [phone] Daisy Her PT Unavailable Ena Mtz MD Unavailable Toni Rae MD Unavailable [phone] System, Provider Not In Unavailable Unavaila Manuel Soler MD Unavailable [phone] Allergies Active Allergy Reactions Criticality Noted Date [...] of left lower extremity, initial encounter ([facility]) BELOW KNEE PROSTHESIS S/P LEFT BKA [...] BLOOD SUGAR TWICE DAILY 02/11/20 25 Active Mobile Travel TechnologiesTouch Ultra Test test strip 1 test strip by Other (specify) route as needed. 03/02/20 25 Active Lancets (Mobile Travel TechnologiesTouch Delica Plus [id number]) Misc USE TO CHECK BLOOD SUGAR TWICE [...] Daily Amount: 12 mg 40 tablet 06/07/20 Active SUPPLY DME MISCIndications:S/ P TKR (total knee replacement), right LEFT PROSTHETIC SOCKS [facility] FAX: [phone] 1 each 06/20/20 Active cephalexin (KEFLEX) 500 MG capsuleIndications :S/P [...] and IV ceftriaxone finished 12/28/24. [facility] ? Repeat echo CKD (chronic [...] nephrotoxic medications. Follows with Dr. Lopez in [place]. See last note 06/07/24. Assessment & Plan (09/03/2024 9:20 AM EST): Creatinine 1.4 GFR 55. Avoid nephrotoxic medications. Follows with Dr. Lopez in [place]. See last note 06/07/24. Hyperlipidemia Assessment & [...] Team Description 07/04/2025 [facility] [address] [phone] Manuel Mesa MD S/P TKR (total knee replacement), right (Primary Dx) 07/04/2025 Refill [facility] [address] [phone] Manuel Mesa MD S/P TKR (total knee replacement), right (Primary Dx) 06/28/2025 8:15 AM EDT [facility] [address] [address] Manuel Mesa MD S/P TKR (total knee replacement), right (Primary Dx) 06/20/2025 Orders Only [facility] [address] [address] Dallas Camejo MD S/P TKR (total knee replacement), right (Primary Dx) 06/07/2025 2:15 PM EDT [facility] [address] [address] Manuel Mesa MD S/P TKR (total knee replacement), right (Primary Dx); Osteoarthritis of right knee, unspecified osteoarthritis type 06/07/2025 2:10 PM EDT Ancillary Procedure [facility] [address] [address] 05/23/2025 [facility]ill [facility] [address] [address] Manuel Mesa MD Osteoarthritis of right knee, unspecified osteoarthritis type 05/16/2025 8:30 AM EDT Anesthesia Event [facility]ly [facility] at [address] [phone] Krystin Campos MD Mock, Casey, TREVOR 05/16/2025 8:00 AM EDT - 05/16/2025 10:30 AM EDT Surgery [facility] [place] at [address] [address] Manuel Mesa MD ARTHROPLASTY TOTAL KNEE 05/16/2025 5:54 AM EDT - 05/17/2025 12:23 PM EDT Hospital Encounter [facility] [address] [place] [phone] Manuel Mesa MD Ramachandran, Rohit, MD Osteoarthritis of right knee, unspecified osteoarthritis type (Primary Dx) Discharge Disposition: Home with Health Care Services 05/16/2025 Travel from Last 3 Months Social History [...] nights/advised to stop 2 weeks before surgery [facility] Utilities Answer Date Recorded In the past 12 months has th e [employer], [employer], oil, or water [place] threatened to shut off services in your [...] any time in the past 12 m [facility], were you homeless or [...] 8:15 AM EST [facility] [address] [place] [address] Manuel Mesa MD [address] [place] [address] [address] [place] [address] Health Maintenance Due Date Last Done Comments Hepatitis C Virus Screening 1960 Foot Exam 1970 Lipid Panel 1970 Ophthalmology Exam 1970 HIV Screening 1973 Chronic Controlled Substance Toxicology Screening 1978 Controlled Substance Agreement Initial and Annual Review 1978 Microalbumin/Creatinine Ratio Urine 1978 DTaP/Tdap/Td Vaccines (1 - Tdap) 11/30/1979 Pneumococcal Vaccines 50+ (1 of 2 - PCV) 11/30/1979 Colonoscopy 2005 RSV Vaccine 50 years and older and Patients (1 - Risk 50-74 years 1-dose series) 2010 Zoster (Shingles) Vaccine (1 of 2) 2010 Influenza Vaccine 04/29/2025 06/22/2024, , 07/08/2023, Additional [...] this topic Medical Devices Implanted Type Area Rugby League Footballer Device Identifier Shelf Expiration Date Model / Serial / Lot [id number] Cement [employer]c R 40gm Grn - [id number] Implanted:Qty : 1 on 05/16/2025 by Manuel Mesa MD at [facility] Cement Right: Knee [employer] [id number] 09/28/2029 [id number] / / [id number] Cement Bone [employer]c R 40gm Grn - [id number] Implanted:Qty : 1 on 05/16/2025 by Manuel Mesa MD at [facility] Cement Right: Knee [employer] [id number] 09/28/2029 [id number] / / [id number] Component Femoral 10 Std Knee Right Crcte Rtn Cement Persona - [id number] Implanted:Qty : 1 on 05/16/2025 by Manuel Mesa MD at [facility] Joint Prosthesis Right: Knee [employer] [id number] 01/31/2035 [id number] / / [id number] Insert Articular 8-11 G-H 11mm Knee Right Tamica Connor - [id number] Implanted:Qty : 1 on 05/16/2025 by Manuel Mesa MD at [facility] Joint Prosthesis Right: Knee [employer] [id number] 06/07/2029 [id number] / / [id number] 0d Keel Right G Tibia Implanted:Qty : 1 on 05/16/2025 by Manuel Mesa MD at [facility] Joint Prosthesis Right: Knee [employer] 10/08/2034 [id number] / / [id number] Pacemaker Cardiac Micra Av2 Ldls [facility] - [id number] Implanted:Qty : 1 on 11/17/2024 by Rui Pabon MD at [facility] Pacemaker Left: Chest [employer] - DI [id number] 02/09/2026 [id number] / [id number] / Explanted Type Area Rugby League Footballer Device Identifier Shelf Expiration Date Model / Serial / Lot [id number] Lead Pacing 52cm 6.2fr 2mm 10mm Spc Sm Straight [facility]-10/26/19 16 Implanted: (Quantity not on file) Explanted:Qty : 1 on 11/17/2024 by Rui Pabon MD Lead [employer] NE[employer] - DI 5076-52 / [id number] / [id number] Lead Pacing 58cm 6.2fr 2mm 10mm Spc Sm Straight Counts Include 234 Beds [facility] Vntr-10/26/19 16 Implanted: (Quantity not on file) Explanted:Qty : 1 on 11/17/2024 by Rui Pabon MD Lead [employer] NEUR[employer] - DI 5076-58 / [id number] / [id number] Pacemaker Cardiac Advisa Dr Debbie Chairez 2 Chamber Digital-2015 Implanted: (Quantity not on file) Explanted:Qty : 1 on 11/17/2024 by Rui Pabon MD Pacemaker [employer] - DI [id number] / [id number] / Procedures Procedure Name Priority Date/Time Associated [...] SPINAL Routine 05/16/2025 8 :59 AM EDT ID ARTHRP KNE CONDYLE&PLATU MEDIAL&LAT COMPARTMENTS 05/16/2025 8:15 AM EDT Primary osteoarthritis of right knee Special Needs SPINAL, REGIONAL BLOCK, PA ASSIST, RETRACTOR SCHWARZ, PERSONA CEMENTED, (pt needs Hillrom/End Finder Forming Department Bed) POCT GLUCOSE, FINGERSTICK (CHARGE) Routine 05/16/2025 7:19 AM EDT BASIC METABOLIC PANEL Routine 05/16/2025 7:15 AM EDT ECG 12-LEAD Routine 05/16/2025 6:56 AM EDT ECG 12-LEAD 04/27/2025 HEMOGLOBIN A1C WITH ESTIMATED AVERAGE GLUCOSE Routine [...] chronic osteomyelitis of foot, unspecified laterality (HCC) from Last 3 Months or Most Recently Relevant to Health Maintenance Results * Erythrocyte Sedimentation Rate (ESR) (07/04/2025 3:16 PM EDT) Pathologist [facility] Erythrocyte Sediment Rate (ESR) 11 < OR = 20 mm/h [facility] Blood Blood specimen / Unknown 07/04/2025 3:16 PM EDT 07/04/2025 3:17 PM EDT Narrative [facility] - 07/05/2025 9:04 AM EDT FASTING:NO FASTING: NO us Manuel Mesa MD LAB BLOOD ORDERABLES Fin al Result [employer] [address] [place] [phone] * (ABNORMAL) C-REACTIVE PROTEIN (07/04/2025 3:16 PM EDT) [facility] C-Reactive Protein 20.6(H) <8.0 mg/L [facility] Blood Blood specimen / Unknown 07/04/2025 3:16 PM EDT 07/04/2025 3:17 PM EDT Narrative [facility] - 07/05/2025 9:04 AM EDT FASTING:NO FASTING: NO us Manuel Mesa MD LAB BLOOD ORDERABLES Fin al Result Performing Organization Address City/[facility]/ZIP Co de Phone Number [employer] [address] [place] [phone] * XR Knee 3 views-Right (06/07/2025 2:53 PM EDT) Narrative OA - 06/07/2025 2:53 PM EDT This exam was performed in office at [facility] and images reviewed by orthopedic provider. Any findings are documented within ambulatory encounter note on date of service. us Manuel Mesa MD IMG DIAGNOSTIC IMAGING O RDERABLES Final Result Performing Organization Address [facility] Co de Phone Number [facility] * (ABNORMAL) POCT Glucose, Fingerstick (05/17/2025 7:27 AM EDT) Only the most recent of7 resultswithin the time period is included. POC Glucose 160(H) 65 - 99 mg/dL 05/17/2025 7:32 AM EDT Blood specimen / Unknown 05/17/2025 7:27 AM EDT 05/17/2025 7:32 AM EDT Manuel Mesa MD POINT OF CARE TEST ORDER JOSE Final Result Performing Organization Address City/[facility]/ZIP Co de Phone Number HOSPITAL LAB See Below * (ABNORMAL) Basic Metabolic Panel (05/17/2025 5:27 AM EDT) Only the most recent of2 resultswithin the time period is included. Glucose 157(H) 65 - 99 mg/dL 05/17/2025 6:19 AM EDT [facility] Comment:Fasting: <100 mg/dL, Non-Fasting: <200 mg/dL (ADA 2005) Blood Urea Nitrogen (BUN) 29(H) 8 - 21 mg/dL 05/17/2025 6:19 AM EDT [facility] Creatinine 1.6(H) 0.5 - 1.3 mg/dL 05/17/2025 6:19 AM [facility] eGFR 48(L) >59 05/17/2025 6:19 AM T [facility] Comment:CKD-EPI (2020) in mL /min/1.73 sq meters. Sodium 138 136 - 145 mmol/L 05/17/2025 6:19 AM EDT [facility] Potassium 3.9 3.4 - 5.3 mmol/L 05/17/2025 6:19 AM [facility] Chloride 104 98 - 107 mmol/L 05/17/2025 6:19 AM [facility] CO2 24 22 - 33 mmol/L 05/17/2025 6:19 AM [facility] Anion Gap 10 7 - 17 05/17/2025 6:19 AM [facility] Calcium 8.7 8.7 - 10.5 mg/dL 05/17/2025 6:19 AM [facility] BUN/Creatinine Ratio 18 10.0 - 25.0 Ratio 05/17/2025 6:19 AM [facility] Blood Blood specimen / Unknown 05/17/2025 5:27 AM EDT 05/17/2025 5:47 AM EDT Alice Dobbins PA-C LAB BLOOD [place]AB[place] [address], [place] [address] * Block - Lower Extremity (05/16/2025 11:43 [...] noted every 3-5mL. us Krystin Campos MD ID ANESTHESIA Edited Result - Final * Block [...] 8:42 AM Performed by: MD Yadiel George SRNA Chart Verification ID band applied and present [...] with surgical incision. us Deep Brown MD ID ANESTHESIA Final Result * ECG 12 lead (05/16/2025 6:56 AM EDT) Only the most recent of2 resultswithin the time period is included. [facility] Ventricular rate 63 BPM EKG [facility] Atrial rate 56 BPM EKG [facility] QRS duration 186 ms EKG [facility] Q-T interval 506 ms EKG [facility] QTC calculation (Bazett) 517 ms EKG [facility] R axis 59 degrees EKG [facility] T axis 49 degrees EKG [facility] 05/16/2025 6:56 AM EDT Narrative EKG [facility] - 05/16/2025 9:46 PM EDT Ventricular [...] Mesa MD ECG ORDERABLES Final Re sult [facility] from Last 3 Months Insurance ALAYNA Cipriano MEDICARE ALAYNA Cipriano MEDICARE AETNA MGD MEDICARE Advance Directives Documents on File Type Date Recorded Patient Product Marketing Analyst Expl anation Advance Directive-Scan 11/10/2024 Revoc ation of Health Care Proxy 11/10/24 Advance Directive-Scan 11/10/2024 Healt h Care Proxy [facility] 11/10/24 * Full Code (Latest Code [...] Name Relationship Healthcare Agent Relationship Communication Luca(SON) Crowe Healthcare passenger relations representative 1. Health Care Product Marketing Analyst Jessica Mello Healthcare passenger relations representative 1. Health Care Product Marketing Analyst Care Teams Flight Attendant Ramp Relationship Specialty Start Date End Date Lee Fabian MD PCP - General Internal Medicine 09/02/24 Vitaliy Fields MD [address] [place] [address] Cardiovascular Disease 09/02/24 Dallas Camejo MD [address] [place] [address] Surgery, Orthopedic 09/02/24 Rolando Lopez MD [address] Transplant - [address] [place] [address] Physician Nephrology 09/02/24 Cesar Fair MD 85 [facility] [address] [place] [address] Surgery, Cardiac 11/08/24 Daisy Her, PT 85 [facility] [address] [place] [address] Culinary InternshipWastewater Operator Medicine and Rehabilitation 11/18/24 Ena Mtz MD [address] [place] [address] Infectious Disease 04/12/25 Toni Rae MD 300 [facility] [address] [place] [address] Surgery, Vascular 04/12/25 System, Provider Not In 04/12/25 Manuel Mesa MD 31 [facility] [address] [place] [address] Physician Surgery, Orthopedic 04/19/25
== END ==
LOC: HO.CARD 14:42
PROVIDERS: PCP Internal Medicine; Visit Provider Internal Medicine
DX: I50.30 Unspecified diastolic (congestive) heart failure (principal)
CPT/HCPCS: 93306; Q9957

== ENCOUNTER → 2025-07-26 14:45 | Outpatient (BNV) | payer MEDICARE, SELFPAY | PROVIDERS: PCP Internal Medicine; Visit Provider Internal Medicine | DX: I42.2 Other hypertrophic cardiomyopathy (principal); I35.8 Other nonrheumatic aortic valve disorders; I77.810 Thoracic aortic ectasia | CPT/HCPCS: 93306 ==

== ENCOUNTER 2025-08-17 15:36 | Outpatient (AMB) | payer MEDICARE, SELFPAY ==
--- NOTE | 2025-08-17 15:59 | MHC.OFFVIS ---
Intake Visit Reasons: 6 month f/u Allergies lisinopril Allergy (Mild, Verified 08/17/25 16:22) kidney trouble Medication List - Last Reconciled 08/17/25 by Jemma Strickland CNP amlodipine 10 mg PO DAILY apixaban 5 mg PO BID aspirin (Adult Aspirin Regimen) 81 mg PO DAILY bumetanide 2 mg PO DAILY 90 days cholecalciferol (vitamin D3) 25 mcg PO DAILY donepezil 10 mg PO DAILY empagliflozin (Jardiance) 25 mg PO DAILY glipizide ER 2.5 mg PO BID memantine (Namenda) 5 mg PO BID 90 days metformin 500 mg PO ONCE metoprolol tartrate 50 mg PO BID pantoprazole 40 mg PO DAILY pravastatin 20 mg PO DAILY pregabalin (Lyrica) 150 mg PO BID tirzepatide (Mounjaro) 7.5 mg subcut QWEEK HPI Comments Details: He was doing okay. He had R TKR in 04/2025 and was scheduled for cardiac ablation next month. Pain was controlled with pregabalin. Memory was stable, can forgetful at times. He forgot a few items at the store this week. He was walking with cane, no falls. Sleep was okay. [place] memory has gotten worse since left foot infection in 07/2024, which ultimately resulted in L BKA in 10/2024. More forgetful and needs more reminders.?Has been out of work since 07/2024. 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 Initially memory was better with donepezil and did not have?cognitive difficulties, was?able to multitask. If he delays or misses Lyrica dose, he is aware and pain increased. History of diabetes since around 1989. He developed symptoms of diabetic peripheral neuropathy in 1999. He had poorly controlled blood sugar until he lost over 100 pounds. His symptoms of neuropathy include numbness and burning pain in feet which make him uncomfortable. He tried gabapentin 300mg three times a day but stopped after a few weeks because it was ineffective. A higher dose was not tried. Using marijuana for pain control also. Lyrica 150mg twice a day controls symptom. A lower dose does not help and higher dose causes cognitive impairment. He has not tried amitriptyline or Cymbalta. He had amputation of toes on the R foot following a Charcot foot with joint collapse. He has history of afib, ablation procedure complicated by heart block, has pacemaker and watchman. 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 [facility] Medical History (Updated 08/17/25 @ 15:59 by Jemma Strickland CNP) Diabetes Obstructive sleep apnea Paroxysmal atrial fibrillation (HFpEF) heart failure with preserved ejection fraction Presence of Watchman left atrial appendage closure device Pacemaker Hx of cardiac pacemaker Surgical History History of amputation of toe Hx of hand surgery Hx of colonoscopy Hx of total knee replacement Hx of gastric bypass History of amputation of lesser toe Hx of colonoscopy Hx of prior ablation treatment Hx of foot surgery Family History Father Emphysema lung Mother Heart failure Son Ulcerative colitis Brother No problems noted. Sister No problems noted. Sister No problems noted. Social History Are you a primary medicare sales representative to a significant other at home: No Do you presently have visiting nurse or other home services: No Alcohol intake: current Alcohol intake frequency: a few times a week Patient Tobacco Use Status: Former Tobacco user Tobacco use type: Cigarette Review of Systems Const Denies chills, Denies daytime sleepiness, Denies difficulty sleeping, Denies fatigue, Denies fever(s), Denies frequent falls, Denies headache(s), Denies increased appetite, Denies poor appetite, Denies snoring, Denies weakness, Denies weight gain and Denies weight loss Eyes Denies loss of vision ENT Denies vertigo, Denies dizziness, Denies headache(s) and Denies neck pain Card Denies chest pain at rest, Denies chest pain with activity, Denies syncope, Denies leg edema, Denies palpitations, Denies dyspnea and Denies dyspnea on exertion Resp Denies cough, Denies dyspnea, Denies dyspnea on exertion and Denies snoring GI Denies abdominal pain, Denies constipation, Denies heartburn, Denies diarrhea and Denies nausea Denies urinary frequency, Denies urinary incontinence and Denies urinary urgency Musc Denies abnormal gait, Denies back pain, Denies myalgias, Denies arthralgias, Denies neck pain, Denies numbness and Denies tingling Neuro Denies abnormal gait, Denies vertigo, Denies dizziness, Denies syncope, Denies frequent falls, Denies headache(s), Denies lack of coordination, Denies loss of vision, Denies memory loss, Denies numbness, Denies Other visual disturbances, Denies restless legs, Denies seizure-like activity, Denies tingling, Denies paresthesias, Denies tremor(s) and Denies weakness Psych Denies anxiety, Denies depression, Denies auditory hallucinations, Denies memory loss and Denies visual hallucinations Endo Denies fatigue and Denies palpitations Physical Exam Const Other: General Appearance:? normal, in no acute distress. Heart:? S1, S2 normal, no murmurs. Lungs:? clear anteriorly and posteriorly. Musculoskeletal:? normal. Extremities:? no edema. Psych:? alert, as below. Neuro Other: Abnormal Neurological Findings:?Areflexia in LE. Loss of pinprick and vibration below mid-hanosn level. L BKA. Walking with cane. MMSE 29/30. Mental Status: alert, as below. Cranial Nerves: Pupils are equal, round, and reactive to light. External ocular muscles are intact. Visual ta are full, no ptosis. Face is symmetrical, no facial weakness or droop. Facial sensations are normal. Tongue protrudes in midline. Palate elevates symmetrically. Shoulder shrugging is normal Motor Examination: Normal muscle tone, bulk and strength. No atrophy or fasciculations. No drift of the extended upper extremities. DTR 2+. Plantars are flexor. Sensory Exam: Normal light touch, temperature, pinprick, vibration, and joint-position sensations. Rhomberg sign is absent. Coordination: No ataxia. No titubation. Gait Exam: Walking with cane. Cerebellar Signs: Tjdcyz-gk-cmsi and lmmr-fr-daty is normal. No dysdiadochokinesia. Extrapyramidal System: No tremor, rigidity with normal facial expressions. No bradykinesia. No bradyphrenia. Normal arm swing and posture. No propulsion or retropulsion. Speech: Normal. No dysphasia or dysarthria. MMSE Level of Consciousness: Alert. Orientation: Knows correct year, month, date, day and season. Knows correct city, county and state. Knows correct location and floor. Registration: Able to register 3 objects. Attention: Serial 7's performed accurately. Recall: Able to recall 2 out of 3 objects. Language: Normal spontaneous speech, fluency, repetition, naming, comprehension, reading, and writing. Total Score: 29/30. Results Reviewed Results Reviewed: 05/01/20 CT brain: No acute intracranial abnormality. No significant cerebral volume loss Assessment & Plan Assessment & Plan (1) Diabetic peripheral neuropathy: Code(s): E11.42 - Type 2 diabetes mellitus with diabetic polyneuropathy Category: Medical Plan: Continue pregabalin 150mg 1 capsule twice a day. (2) MCI (mild cognitive impairment): Code(s): G31.84 - Mild cognitive impairment of uncertain or unknown etiology Category: Medical Plan: Continue donepezil 10mg 1 tablet at bedtime. Continue memantine 5mg 1 tablet twice a day. Medications: Changed From pregabalin (Lyrica) 150 mg PO BID To pregabalin (Lyrica) 150 mg PO BID 180 caps 1RF 90 days From donepezil 10 mg PO BEDTIME To donepezil 10 mg PO BEDTIME 90 tabs 1RF 90 days Coding Level of Care Code Est Pt Level 4 (06691) Diagnoses Diabetic peripheral neuropathy E11.42 MCI (mild cognitive impairment) G31.84
--- OUTSIDE RECORDS SUMMARY | 2025-08-18 04:09 | XMS_ITS | Encounter Summary ---
Author Organization [facility] Address [address] [place] [address] Care Team Providers Care Speed Operator Name Role Phone Jarrett Merlos MD Primary Care Provider Unavail able Lee Fabian MD Primary Care Provider [phone] Encounter Details Date Type Department Care Team Description 08/29/2018 [facility] Medical Records [address] [place] [address] Social History Tobacco Use Types Packs/Day Years [...] on filedocumented in this encounter Care Teams Speed Operator Relationship Specialty Start Date End Date Jarrett Merlos MD PCP - General 06/08/01 03/22/20 Lee Fabian MD [address] [place] [id number] PCP - General Internal Medicine 03/23/20 documented as of this encounter
--- OUTSIDE RECORDS SUMMARY | 2025-08-18 04:09 | XMS_ITS | Encounter Summary ---
Author Organization [facility] Address [address] [place] [address] Care Team Providers Care Advertising Clerk Name Role Phone Jarrett Merlos MD Primary Care Provider Unavail able Lee Fabian MD Primary Care Provider [phone] Encounter Details Date Type Department Care Team Description 08/28/2018 [facility] Medical Records [address] [place] [address] Biscoe-Lyndsay Armando PA-C Social History Tobacco Use Types [...] on filedocumented in this encounter Care Teams Advertising Clerk Relationship Specialty Start Date End Date Jarrett Merlos MD PCP - General 06/08/01 03/22/20 Lee Fabian MD [address] [place] [address] PCP - General Internal Medicine 03/23/20 documented as of this encounter
--- OUTSIDE RECORDS SUMMARY | 2025-08-18 04:09 | XMS_ITS | Encounter Summary ---
Author Organization [facility] Address [address] [place] [address] Care Team Providers Care Bin Cleaner Name Role Phone Jarrett Merlos MD Primary Care Provider Unavail able Lee Fabian MD Primary Care Provider [phone] Encounter Details Date Type Department Care Team Description 02/09/2011 [facility] Medical Records [address] [place] [address] Carlos Skaggs Social History Tobacco Use Types [...] on filedocumented in this encounter Care Teams Bin Cleaner Relationship Specialty Start Date End Date Jarrett Merlos MD PCP - General 06/08/01 03/22/20 Lee Fabian MD [address] [place] [address] PCP - General Internal Medicine 03/23/20 documented as of this encounter
--- OUTSIDE RECORDS SUMMARY | 2025-08-18 04:09 | XMS_ITS | Encounter Summary ---
Author Organization [employer] [facility] Address [address] [place] [address] Care Team Providers Care Subassembler Name Role Phone Jarrett Merlos MD Primary Care Provider Unavail able Lee Fabian MD Primary Care Provider [phone] Encounter Details Date Type Department Care Team Description 08/28/2018 [facility] Medical Records [address] [place] [address] Tomer Bello MD Social History Tobacco Use Types Packs/Day [...] on filedocumented in this encounter Care Teams Subassembler Relationship Specialty Start Date End Date Jarrett Merlos MD PCP - General 06/08/01 03/22/20 Lee Fabian MD [address] [place] [address] PCP - General Internal Medicine 03/23/20 documented as of this encounter
--- OUTSIDE RECORDS SUMMARY | 2025-08-18 04:09 | XMS_ITS | Encounter Summary ---
Author Organization [facility] Address [address] [place] [address] Care Team Providers Care Night Cleaner Name Role Phone Lee Fabian MD Primary Care Provider [phone] Encounter Details Date Type Department Care Team Description 03/30/2024 Orders Only Medical Records [address] [place] [address] Mary Akbar Social History Tobacco Use Types [...] Name Priority Date/Time Associated Diagnosis Comments OUTSIDE EYE EXAM Routine 03/17/2024 documented in this encounter Results * OUTSIDE EYE EXAM (03/17/2024) Mary Akbar PROCEDURES documented in this encounter Visit Diagnoses Not on filedocumented in this encounter Care Teams Night Cleaner Relationship Specialty Start Date End Date Lee Fabian MD [address] [place] [address] PCP - General Internal Medicine 03/23/20 documented as of this encounter
--- OUTSIDE RECORDS SUMMARY | 2025-08-18 04:09 | XMS_ITS | Encounter Summary ---
Author Organization [facility] Address [address] [place] [address] Care Team Providers Care Supervisor Evaporator Name Role Phone Lee Fabian MD Primary Care Provider [phone] Reason for Visit * Reason Onset Date Comments Provider Call Back 07/13/2024 Encounter Details Date Type Department Care Team Description 07/13/2024 Telephone Adult Medicine [address] [address] Lee Fabian MD [address] [place] [address] Provider Call Back Social History Tobacco Use Types Packs/Day Years Used Date Smoking Tobacco: Former Cigarettes 1 15 Q uit: 10/30/2003 Smokeless Tobacco: Never Alcohol Use Standard Drinks/Week Comments Yes 12 (1 standard drink = 0.6 oz pu re alcohol) 12 pack Sex Assigned at Date Recorded Not on file documented as of this encounter Miscellaneous Notes * Telephone Encounter - Soraya Brandt - 07/13/2024 3:56 PM EDT noted * Telephone Encounter - Katy Barahona - 07/13/2024 3:19 PM EDT Caller requesting call back from provider: Is the caller the patient? YES If caller is not the patient, what is the callers name? N/A Callers relationship to patient? N/A If person calling is not the patient themselves, is there a verbal release in FYI or permanent comments for this person: NO Reason for call back: Pt calling with FYI. [employer] is faxing over a form to be signed byLee Fabian . And faxed back yolanda/ Thank you Caller offered to speak with the nurse for assistance: YES Response: Patient offered to speak with nurse for assistance and patient agreed. Message forwarded to nurse. documented in this encounter Plan of Treatment Not on file documented as of this encounter Visit Diagnoses Not on filedocumented in this encounter Care Teams Supervisor Evaporator Relationship Specialty Start Date End Date Lee Fabian MD [address] [place] [address] PCP - General Internal Medicine 03/23/20 documented as of this encounter
--- OUTSIDE RECORDS SUMMARY | 2025-08-18 04:09 | XMS_ITS | Encounter Summary ---
Author Organization [employer] [facility] Address [address] [place] [address] Care Team Providers Care Completion Engineer Name Role Phone Jarrett Merlos MD Primary Care Provider Unavail able Lee Fabian MD Primary Care Provider [phone] Encounter Details Date Type Department Care Team Description 07/07/2018 Concrete Pipe Making Machine Operator Report Medical Records [address] [place] [address] Prudencio Alcantara MD Social History Tobacco Use Types Packs/Day [...] on filedocumented in this encounter Care Teams Completion Engineer Relationship Specialty Start Date End Date Jarrett Merlos MD PCP - General 06/08/01 03/22/20 Lee Fabian MD [address] [place] [address] PCP - General Internal Medicine 03/23/20 documented as of this encounter
--- OUTSIDE RECORDS SUMMARY | 2025-08-18 04:09 | XMS_ITS | Encounter Summary ---
Author Organization [facility] Address [address] [place] [address] Care Team Providers Care Liner Replacer Name Role Phone Jarrett Merlos MD Primary Care Provider Unavail able Lee Fabian MD Primary Care Provider [phone] Encounter Details Date Type Department Care Team Description 09/08/2018 Orders Only Medical Records [address] [place] [address] Abstract, Provider Social History Tobacco Use Types [...] on filedocumented in this encounter Care Teams Liner Replacer Relationship Specialty Start Date End Date Jarrett Merlos MD PCP - General 06/08/01 03/22/20 Lee Fabian MD [address] [place] [id number] PCP - General Internal Medicine 03/23/20 documented as of this encounter
--- OUTSIDE RECORDS SUMMARY | 2025-08-18 04:09 | XMS_ITS | Encounter Summary ---
Author Organization [facility] Address [address] [place] [address] Care Team Providers Care Bulk Driver Name Role Phone Lee Fabian MD Primary Care Provider [phone] Encounter Details Date Type Department Care Team Description 07/07/2024 Rubber Compounder Formulator Report Medical Records [address] [place], [place] [address] [place], [place] [address]Ivethy Social History Tobacco Use Types Packs/Day Years [...] on filedocumented in this encounter Care Teams Bulk Driver Relationship Specialty Start Date End Date Lee Fabian MD [address] [place], [place] [phone] PCP - General Internal Medicine 03/23/20 documented as of this encounter
--- OUTSIDE RECORDS SUMMARY | 2025-08-18 04:09 | XMS_ITS | Clinical Summary ---
Author Organization [facility] Address [address] [place] [address] Care Team Providers Care Well Point Pumping Supervisor Name Role Phone Lee Fabian MD Primary Care Provider [phone] Allergies Active Allergy Reactions Severity Noted Date Comments Lisinopril OTHER 09/12/2017 hyperkalemia Other reaction(s): Other (See Comments) hyperkalemia Medications Medication Sig Dispensed Refills Start Date End Date Status CPAP Historical (HISTORICAL CPAP)Indications:Obs tructive sleep apnea Inhale into the lungs. apria 0 Active pregabalin (LYRICA) 75 MG capsule Take 2 Capsules by mouth 2 times daily. 0 Active Glucose Blood (FREESTYLE LITE) Strip USE TO TEST DAILY 100 Strip 0 08/27/2022 Active FreeStyle Lancets Misc USE TO TEST ONCE DAILY 100 Each 0 09/13/2022 Active tadalafil (Cialis) 10 MG tablet Take 1 Tablet by mouth as needed for Erectile Dysfunction. 30 Tablet 1 07/10/2023 Active pantoprazole (PROTONIX) 40 MG tablet Take 1 Tablet by mouth daily. 0 09/16/2023 Active donepezil (ARICEPT) 10 MG tablet Take 1 Tablet by mouth daily. 0 10/20/2023 Active Ergocalciferol 50 MCG (2000 UT) Cap Take 2 Capsules by mouth daily. 30 Capsule 0 10/31/2023 Active vitamin B-12 (CYANOCOBALAMIN) 100 MCG tablet Take 1 Tablet by mouth daily. 0 Active Magnesium 400 MG Cap Take 1 Capsule by mouth daily. 0 Active Dwight-3 Fatty Acids (Fish Oil) 1000 MG Cap Take 1 Capsule by mouth daily. 0 Active Melatonin 10 MG Tab Take 5 mg by mouth at bedtime. 0 Active docusate sodium (COLACE) 100 MG capsule Take 1 Capsule by mouth daily. 0 Active Sennosides (Senna) 8.6 MG Cap Take 1 Capsule by mouth daily. 0 Active Continuous Glucose Sensor (FreeStyle Wallace 3 Sensor) [facility] Inject 1 Device into the skin every 14 days. 6 Each 1 03/16/2024 Active bumetanide (BUMEX) 1 MG tablet Take 2 Tablets by mouth daily. 0 04/28/2024 Active metformin (GLUCOPHAGE) 500 MG tablet Take 1 tablet twice daily with food 60 Tablet 0 05/06/2024 Active Empagliflozin (Jardiance) 25 MG Tab Take 1 Tablet by mouth daily. 90 Tablet 1 05/06/2024 Active glipiZIDE 2.5 MG Tab Take 1 Tablet by mouth 2 times daily. 180 Tablet 1 05/06/2024 Active buPROPion (Wellbutrin SR) 150 MG 12 hr tablet Take 1 Tablet by mouth 2 times daily for 360 days. 60 Tablet 11 05/24/2024 Active nicotine (Nicoderm CQ) 7 MG/24HR Place 1 Patch onto the skin every 24 hours for 30 days. 28 Patch 0 05/24/2024 Active Metoprolol Succinate 50 MG Capsule ER 24 Hour Sprinkle Take 1 Tablet by mouth 2 times daily. 0 Active Apixaban 5 MG Tab Take 5 mg by mouth 2 times daily. 0 Active pravastatin (PRAVACHOL) 20 MG tabletIndications:Ty pe 2 diabetes mellitus with peripheral circulatory disorder (HCC),History of atrial fibrillation,Primary hypertension,Presenc e of permanent cardiac pacemaker TAKE 1 TABLET BY MOUTH DAILY 90 Tablet 1 07/27/2024 Active Active Problems Patient Care Coordination No te Formatting of this note is d ifferent from the original. Checking Your Blood Sugars Please check your blood sugars every day. Please check your sugars at the following times of day: before breakfast and after dinner Your Blood Sugar Goals Pre Meal: 90-130 2 hours after meals: 110-160 Bedtime: 110-150 Use the Results Bring your glucometer to every appointment Write your fingerstick blood sugars down on a log sheet or record book. Bring them to your appointment Look for patterns in the numbers. The results help you and your provider make decisions about your diabetes treatment plan. Your Results and your Goals Your Result / Date of Completion Your Goal / How Often to Assess Component Value Date HGBA1C 8.0 09/09/2014 Less than 7%--- 2-4 times per year BP Readings from Last 1 Encounters: 12/29/14 122/70 Less than 130/80--- once per year Component Value Date LDL 89 02/11/2014 LDL less than 100--- once per year Component Value Date MALBUR 7.6 03/16/2012 Less than 30--- once per year Wt Readings from Last 1 Encounters: 12/29/14 346 lb 3.2 oz (157.035 kg) Your goal weight by next visit: 340 --- reassess 2-4 times a year Health Maintenance Due Topic Date Due Dtap/tdap/td (##1 - Tdap) 11/30/1971 Pneumovax For High Risk Patients (##1) 1978 Diabetes: Annual Eye Exam 03/29/2014 Diabetes: Annual Foot Exam 06/18/2014 Diabetes: Annual Care Plan 06/18/2014 Your Action Plan Check blood glucose as directed and write down all results. Contact me if you experience any barriers to care such as inability to purchase your medication, difficulty getting to your appointments or difficulty understanding your care plan When to Call your Healthcare Provider If your blood sugar falls below 70 and you do not know why or you become unconscious If you are sick and unable to take liquids because or nausea or vomiting If you have a fever over 101 If your blood sugar is 300 or higher on greater than 3 separate occasions during the same week If you are just unsure what to do Educational Resources [place] Diabetes Association (www.diabetes.org) Centers for Disease Control and Prevention (www.cdc.gov/diabetes) This care plan was created in collaboration with Luca Crowe on 12/29/2014 Problem Noted Date Cataract of both eyes 07/20/2024 Complete atrioventricular block 05/30/20 24 Gastroesophageal reflux disease 05/30/20 24 H/O carotid atherosclerosis 05/30/2024 History of GI bleed 05/30/2024 Pain in extremity 05/30/2024 Stage 3 chronic kidney disease 4 Memory loss 04/28/2024 Vitamin D deficiency 04/28/2024 Iron deficiency 04/28/2024 Chronic diastolic heart failure 04/28/20 24 History of claudication 12/29/2020 Overview: Claudication Paroxysmal atrial fibrillation 1 Overview: Paroxysmal atrial fibrillation Stenosis of right carotid artery 021 Overview: Right carotid artery stenosis Hypertensive disorder 12/29/2020 Overview: Hypertensive disorder Paranoia 08/15/2020 Insomnia due to other mental disorder Chronic midline low back pain 06/02/2020 Lumbar spondylosis 06/02/2020 H/O bariatric surgery 02/26/2018 S/P transmetatarsal amputation of foot, right 08/27/2017 RLS (restless legs syndrome) 10/09/2016 Erectile dysfunction 07/29/2016 Presence of permanent cardiac pacemaker 02/06/2016 Overview: For complete heart block after ablation for atrial fibrillation Atypical atrial flutter 10/19/2015 Charcot's joint of right foot 07/20/2015 PVD (peripheral vascular disease) 2012 Type 2 diabetes mellitus with peripheral circulatory disorder 07/17/2011 Last Assessment & Plan: Lantus Titration Protocol-His fasting sugars are now in the low 100's, he had been up to 160's. He changed shift, now working 4 10-hour shifts and has every Friday off. He likes this but he gets home later.He believes that eating later has affected his blood sugars in the morning. He is trying to focus on his food choices, preparing food in advance for dinner like he does for lunch. See note 11/09/12 History of atrial fibrillation 1 Overview: S/p multiple antiarrhythmic drugs and ablations, ablation 10/2015 resulted in complete heart block requiring pacemaker, and tamponade, s/p watchman procedure MERVIN (obstructive sleep apnea) moderate A HI 22 01/31/2011 [facility]: Date 08/06/2018; SE 90%; SM 92%; REM 13%; RDI 36 (AHI 22), REM (RDI 24 - AHI 21), Central apneas 12; Obstructive apneas 8; Mixed apneas 0; hypopneas 134; RERAs 100; average oxygen saturation 94% (lowest 84% - without saturations <88% for 5% or more of study); PLMs 57. - Obstructive Sleep Apnea - moderate overall; mostly hypopneas with frequent RERAs; some central and obstructive apneas; without sleep related hypoventilation by 2018 polysomnogram. Cervical radiculopathy 04/14/2008 Claudication 04/14/2008 Osteoarthritis of left knee 10/06/2006 Overview: S/p TKR 05/2018 Hyperlipidemia 09/10/2006 History of smoking 09/10/2006 Overview: stopped 10/2003 Resolved Problems Problem Noted Date Resolved Date Pericardial effusion 05/28/2018 07/10/2023 Overview: With tamponade Upper GI bleed 02/26/2018 07/10/2023 Encounter for preventive health examination 01/2804/28/2024 Chronic anticoagulation 06/23/2017 05/28/20 18 Osteomyelitis of right foot 02/06/201606/29 Overview: S/p right midfoot amputation Diabetes mellitus type 2 in obese 12/29/2014 04/13/2018 Carotid stenosis 08/23/2013 07/10/2023 Overview: Right. DIVERTICULITIS OF COLON 06/12/2007 10/09/19 17 Type 2 diabetes mellitus with renal manifestatio ns 09/10/2006 08/23/2013 Overview: Followed by [facility] at [facility]O clinic, Cami Matthew NP Morbid obesity 09/10/2006 02/26/2018 Proteinuria 09/10/2006 08/23/2013 Immunizations Name Administration Dates Next Due COVID-19 (Pfizer) 07/08/2023,,01/16/2021,12/25 Influenza (> 6 Months) 06/22/2024,2017,06/04/2016,06/18,06/19/2010 Influenza (>6 Months) Split Preservative Free 05/20/2017,06/04/2016 Influenza Flu (PT Reported) 07/08/2023, 7 Influenza Vaccine-preservati ve Free-quadrivalent 4 Years 07/18/2022,06/26/2020 Influenza Vaccine-quadrivale nt 4 Years Plus 06/17/2021,07/08/2018 Pneumoccoccal(Adult) Polysac charide PPSV23 01/05/2017,11/11/2015 Shingrix (Recombinant zoster vaccine) 04/13/2018 ,12/16/2017 Tdap 04/09/2020,12/16/2017 Family History Medical History Relation Name Comments Arthritis Father Arthritis Mother Cataract Mother Cataract Sister Blindness Negative Hx Glaucoma Negative Hx Macular Degeneration Negative Hx Strabismus Negative Hx Relation Name Status Comments Father Mother Sister Social History Tobacco Use Types Packs/Day Years Used Date Smoking Tobacco: Former Cigarettes 1 15 Q uit: 10/30/2003 Smokeless Tobacco: Never Alcohol Use Standard Drinks/Week Comments Yes 12 (1 standard drink = 0.6 oz pu re alcohol) 12 pack Sex Assigned at Date Recorded Not on file Last Filed Vital Signs Vital Sign Reading Time Taken Comments Blood Pressure 104/62 07/20/2024 10:05 AM EDT Pulse 112 07/20/2024 10:05 AM EDT Temperature 36.3 C (97.4 F) 06/22/2024 3:45 PM EDT Respiratory Rate 20 11/28/2023 2:59 PM EST Oxygen Saturation 97% 06/22/2024 3:55 PM EDT Inhaled Oxygen Concentration - - Weight 105.9 kg (233 lb 8 oz) 07/20/2024 10:05 A M EDT Height 182.9 cm (6') 07/20/2024 10:05 AM EDT Body Mass Index 31.67 07/20/2024 10:05 AM EDT Plan of Treatment Health Maintenance Due Date Last Done Comments DEPRESSION SCREEN 1972 DIABETES: ANNUAL FOOT EXAM 07/10/202407/10, 08/10/2019, 06/18/2013, Additional history exists BMI CHECK/ADVISE 09/29/2024 05/06/2024, 08/2024, 10/29/2022, Additional history exists DIABETES: BLOOD SUGAR CONTRO L TEST (HGBA1C) 10/22/2024 07/22/2024, 04/28/2024, 01/09/2024, Additional history exists DIABETES: ANNUAL URINE PROTE IN TEST (MICROALBUMIN) 01/08/2025 01/09/2024, 10/29/2022, 12/17/2021, Additional history exists DIABETES: ANNUAL EYE EXAM 03/17/20252023, 03/17/2024 (External Completion), 10/18/2021, Additional history exists Covid-19 Vaccine (2022-10 4 season) 2025 07/08/2023, 08/15/2021, 01/16/2021, Additional history exists INFLUENZA (#1) 2025 06/22/2024, 06/29, 07/18/2022, Additional history exists DIABETES/HEART DISEASE: JANE AL CHOLESTEROL (LDL) 07/22/2025 07/22/2024, 04/28/2024, 01/09/2024, Additional history exists PNEUMOCOCCAL VACCINE FOR HIG H RISK PATIENTS (#2) 2025 08/10/2019 (External Completion), 01/05/2017, 11/11/2015 DTAP/TDAP/TD (3 - Td or Tdap) 04/09/2030 04/09/2020, 12/16/2017 COLON CANCER SCREENING 05/12/2033 3, 01/03/2012 (External Completion) HEPATITIS C SCREENING Completed 12/24/2017, 014 SHINGLES VACCINE Completed 04/13/2018, 12/16/2017 Care Teams Well Point Pumping Supervisor Relationship Specialty Start Date End Date Lee Fabian MD [address] [place] [address] PCP - General Internal Medicine 03/23/20
--- OUTSIDE RECORDS SUMMARY | 2025-08-18 04:10 | XMS_ITS | Encounter Summary ---
Author Organization [facility] Address [address] [place] [address] Care Team Providers Care Vehicle Assembler Name Role Phone Jarrett Merlos MD Primary Care Provider Unavail able Lee Fabian MD Primary Care Provider Encounter Details Date Type Department Care Team Description 04/03/2017 Geospatial Technologist Report Medical Records [address] [place] [address] Misty Munoz Social History Tobacco Use Types [...] on filedocumented in this encounter Care Teams Vehicle Assembler Relationship Specialty Start Date End Date Jarrett Merlos MD PCP - General 06/08/01 03/22/20 Lee Fabian MD [address] [place] [address] PCP - General Internal Medicine 03/23/20 documented as of this encounter
--- OUTSIDE RECORDS SUMMARY | 2025-08-18 04:10 | XMS_ITS | Encounter Summary ---
Author Organization [facility] Address [address] [place] [address] Care Team Providers Care Pan Puller Name Role Phone Jarrett Merlos MD Primary Care Provider Unavail [facility] Lee Fabian MD Primary Care Provider [phone] Reason for Visit * Reason Onset Date Comments Faxed Order 10/15/2017 [facility] Encounter Details Date Type Department Care Team Description 10/15/2017 Telephone Adult Medicine [address] [address] Jarrett Merlos MD Faxed Order ([facility]) Social History Tobacco Use Types Packs/Day Years Used Date Smoking Tobacco: Former Cigarettes 1 15 Q uit: 10/30/2003 Smokeless Tobacco: Never Alcohol Use Standard Drinks/Week Comments Yes 0 (1 standard drink = 0.6 oz pur e alcohol) 4-5 per week Sex Assigned at Date Recorded Not on file documented as of this encounter Miscellaneous Notes * Telephone Encounter - Eunice Quan - 10/15/2017 9:37 AM EST Orders from [facility] sign, date return To Jarrett cummins documented in this encounter Plan of Treatment Not on file documented as of this encounter Visit Diagnoses Not on filedocumented in this encounter Care Teams Pan Puller Relationship Specialty Start Date End Date Jarrett Merlos MD PCP - General 06/08/01 03/22/20 Lee Fabian MD [address] [place] [address] PCP - General Internal Medicine 03/23/20 documented as of this encounter
--- OUTSIDE RECORDS SUMMARY | 2025-08-18 04:10 | XMS_ITS | Encounter Summary ---
Author Organization [facility] Address [address] [place] [address] Care Team Providers Care Buyer Liaison Name Role Phone Jarrett Merlos MD Primary Care Provider Unavail able Lee Fabian MD Primary Care Provider [phone] Encounter Details Date Type Department Care Team Description 12/26/2016 Wire Cutter Report Medical Records [address] [place] [address] Misty Munoz Social History Tobacco Use Types [...] on filedocumented in this encounter Care Teams Buyer Liaison Relationship Specialty Start Date End Date Jarrett Merlos MD PCP - General 06/08/01 03/22/20 Lee Fabian MD [address] [place] [id number] PCP - General Internal Medicine 03/23/20 documented as of this encounter
--- OUTSIDE RECORDS SUMMARY | 2025-08-18 04:10 | XMS_ITS | Encounter Summary ---
Author Organization [facility] Address [address] [place] [address] Care Team Providers Care Information Strategist Name Role Phone Jarrett Merlos MD Primary Care Provider Unavail able Lee Fabian MD Primary Care Provider [phone] Encounter Details Date Type Department Care Team Description 08/19/2017 Hospital Medical Records [address] [place] [address] Awilda Mcdonough Social History Tobacco Use Types Packs/Day Years [...] on filedocumented in this encounter Care Teams Information Strategist Relationship Specialty Start Date End Date Jarrett Merlos MD PCP - General 06/08/01 03/22/20 Lee Fabian MD [address] [place] [address] PCP - General Internal Medicine 03/23/20 documented as of this encounter
--- OUTSIDE RECORDS SUMMARY | 2025-08-18 04:10 | XMS_ITS | Encounter Summary ---
Author Organization [facility] Address [address] [place] [address] Care Team Providers Care Product Management Consultant Name Role Phone Jarrett Merlos MD Primary Care Provider Unavail able Lee Fabian MD Primary Care Provider [phone] Encounter Details Date Type Department Care Team Description 10/01/2017 Customer Success Intern Report Medical Records [address] [place] [address] Guy Trejo MD Social History Tobacco Use [...] on filedocumented in this encounter Care Teams Product Management Consultant Relationship Specialty Start Date End Date Jarrett Merlos MD PCP - General 06/08/01 03/22/20 Lee Fabian MD [address] [place] [address] PCP - General Internal Medicine 03/23/20 documented as of this encounter
--- OUTSIDE RECORDS SUMMARY | 2025-08-18 04:10 | XMS_ITS | Data Portability ---
Author Organization [facility], [facility], [employer] Address [address] [place] [address] Assessment No assessment recorded. Plan of Treatment [...] Montalvo PA-C [address], [place], [address], [facility] 07/01/2024 11:52:22 4 Small Joint Kenalog Injection, L/R completed Rachel Montalvo PA-C [address], [place], [address], [facility] 12/19/2023 15:28:48 4 Tendon Sheath Kenalog Injection, Bilateral completed Rachel Montalvo PA-C [address], [place], [address], [facility] 12/19/2023 15:28:37 Imaging Results None recorded. Procedure Notes None recorded. Medical Equipment None Reported. Allergies Allergen ID Allergen Name Allergen Category Reaction Reaction Severity Criticality Documentation Date Start Date Code Code System Note Provider Name and Address Organization Details Recorded Time 02334 lisinopri l medicatio n Not available Not available Not available 12/01/20232017 02747 RxNorm Not Available [facility] 4 13:16:40 Medications Name Sig Start Date [...] Updated DateTime 12/19/2023 190.5 cm 30.6 kg/m2 584314.13 g [facility] 12/19/2023 13:10:48 Date Recorded Body height Body mass index (BMI) Body weight Provider Name and Address Organization Details Last Updated DateTime 06/25/2024 190.5 cm 30.6 kg/m2 759537.13 g EUNICE ROLY [place] - [place] [facility] 06/25/2024 11:08:00 Social History None recorded. Functional Status None recorded. Mental Status None recorded. Family History Nothing Reported. Medical History No medical history recorded. Past Encounters Encounter ID Performer Location Encounter Start Date Encounter Closed Date Diagnosis/Indication Diagnosis SNOMED-CT Code Diagnosis ICD10 Code Diagnosis IMO Codes Diagnosis Note [id number] [facility] [address] [place] [address] 12/19/2023 12:52:10 01/13/2024 11:33:37 Trigger finger of right hand 2648758581 0224183 M65.30 M65.331 Trigger th umb of left hand 3180931015 66516 M65.312 Arthritis of finger of right hand 8919348414 9606036 M13.982 [id number] Rachel Montalvo PA-C [place] [address] [place] [address] 06/25/2024 10:24:51 07/19/2024 16:07:16 Osteoarthritis of joint of bilateral hands 1330746190 51285 M19.041 M19.042 Health Concerns Section Related Observation LastModified by Organization Detai ls LastModified Time None Recorded Concern Status LastModified by Organization Details LastModified Time None Recorded Advance Directives Directive None Recorded Payers Insurance Date Sequence Insurance Name Policy Number Policy Palm Covered Member ID Palm Member ID Guarantor Name 07/19/2024 1 [employer] [id number] A Luca Crowe [id number] Luca Crowe 06/10/2024 1 MEDICARE B-[place]: [facility] [employer] Luca Crowe [id number] Luca Crowe Notes Date Note Type Note [...] or inciting event. 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 All questions were answered.Speech recognition hospitalist nocturnist physician software was used to create portions of this document. An attempt at proofreading has been made to minimize errors. Please call for corrections. Rachel Montalvo PA-C [address] [facility] [address], [place], [address], [facility] - [place] [facility] 12/19/2023 15:31:01 06/25/2024 text/html I am [...] or inciting event. 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 All questions were answered.Speech recognition hospitalist nocturnist physician software was used to create portions of this document. An attempt at proofreading has been made to minimize errors. Please call for corrections. Rachel Montalvo PA-C [address] [place] [address] Suite [facility], [place], [address], [facility] - [place] [facility] 07/01/2024 11:53:04
--- OUTSIDE RECORDS SUMMARY | 2025-08-18 04:10 | XMS_ITS | Encounter Summary ---
Author Organization [facility] Address [address] [place] [address] Care Team Providers Care Transport Aide Name Role Phone Lee Fabian MD Primary Care Provider [phone] Encounter Details Date Type Department Care Team Description 12/04/2020 Old Medical Records Medical Records [address] [place] [address] Abstract, Provider Social History Tobacco Use Types [...] on filedocumented in this encounter Care Teams Transport Aide Relationship Specialty Start Date End Date Lee Fabian MD [address] [place] [address] [id number] PCP - General Internal Medicine 03/23/20 documented as of this encounter
--- OUTSIDE RECORDS SUMMARY | 2025-08-18 04:10 | XMS_ITS | Encounter Summary ---
Author Organization [employer] [facility] Address [address] [place] [address] Care Team Providers Care Overnight Stocker Name Role Phone Jarrett Merlos MD Primary Care Provider Unavail able Lee Fabian MD Primary Care Provider [phone] Encounter Details Date Type Department Care Team Description 02/14/2017 [facility] Medical Records [address] [place] [address] Dallas Camejo Social History Tobacco Use Types [...] on filedocumented in this encounter Care Teams Overnight Stocker Relationship Specialty Start Date End Date Jarrett Merlos MD PCP - General 06/08/01 03/22/20 Lee Fabian MD [address] [place] [address] PCP - General Internal Medicine 03/23/20 documented as of this encounter
--- OUTSIDE RECORDS SUMMARY | 2025-08-18 04:10 | XMS_ITS | Encounter Summary ---
Author Organization [employer] [facility] Address [address] [place] [address] Care Team Providers Care Spanish Language Lecturer Name Role Phone Jarrett Merlos MD Primary Care Provider Unavail able Lee Fabian MD Primary Care Provider [phone] Encounter Details Date Type Department Care Team Description 04/19/2017 Hospital Medical Records [address] [place] [address] April Tiwari PA-C Social History Tobacco Use [...] on filedocumented in this encounter Care Teams Spanish Language Lecturer Relationship Specialty Start Date End Date Jarrett Merlos MD PCP - General 06/08/01 03/22/20 Lee Fabian MD [address] [place] [address] PCP - General Internal Medicine 03/23/20 documented as of this encounter
--- OUTSIDE RECORDS SUMMARY | 2025-08-18 04:10 | XMS_ITS | Encounter Summary ---
Author Organization [facility] Address [address] [place] [address] Care Team Providers Care Printing Assistant Name Role Phone Jarrett Merlos MD Primary Care Provider Unavail able Lee Fabian MD Primary Care Provider [phone] Encounter Details Date Type Department Care Team Description 06/09/2015 Set Up Mechanic Report Medical Records [address] [place] [address] Nishant Jane MD [address] [place] [address] Social History Tobacco Use Types Packs/Day Years [...] on filedocumented in this encounter Care Teams Printing Assistant Relationship Specialty Start Date End Date Jarrett Merlos MD PCP - General 06/08/01 03/22/20 Lee Fabian MD [address] [place] [address] PCP - General Internal Medicine 03/23/20 documented as of this encounter
--- OUTSIDE RECORDS SUMMARY | 2025-08-18 04:10 | XMS_ITS | Encounter Summary ---
Author Organization [facility] Address [address] [place] [address] Care Team Providers Care Hogshead Cooper Name Role Phone Jarrett Merlos MD Primary Care Provider Unavail able Lee Fabian MD Primary Care Provider [phone] Encounter Details Date Type Department Care Team Description 12/10/2018 Restaurant Assistant Manager Report Medical Records [address] [place] [address] Marcia Urrutia MD Social History Tobacco Use [...] on filedocumented in this encounter Care Teams Hogshead Cooper Relationship Specialty Start Date End Date Jarrett Merlos MD PCP - General 06/08/01 03/22/20 Lee Fabian MD [address] [place] [address] PCP - General Internal Medicine 03/23/20 documented as of this encounter
--- OUTSIDE RECORDS SUMMARY | 2025-08-18 04:10 | XMS_ITS | Encounter Summary ---
Author Organization [facility] Address [address] [place] [address] Care Team Providers Care Longitudinal Float Operator Name Role Phone Jarrett Merlos MD Primary Care Provider Unavail able Lee Fabian MD Primary Care Provider [phone] Encounter Details Date Type Department Care Team Description 09/07/2019 Special Education Kindergarten Teacher Report Medical Records [address] [place] [address] Orthopedic, Surgeons Social History Tobacco Use Types [...] on filedocumented in this encounter Care Teams Longitudinal Float Operator Relationship Specialty Start Date End Date Jarrett Merlos MD PCP - General 06/08/01 03/22/20 Lee Fabian MD [address] [place] [address] PCP - General Internal Medicine 03/23/20 documented as of this encounter
--- OUTSIDE RECORDS SUMMARY | 2025-08-18 04:10 | XMS_ITS | Encounter Summary ---
Author Organization [facility] [employer] [facility] Address [address] [place] [address] Care Team Providers Care Diver Pumper Name Role Phone Jarrett Merlos MD Primary Care Provider Unavail able Lee Fabian MD Primary Care Provider [phone] Encounter Details Date Type Department Care Team Description 09/09/2019 Brassiere Cup Mold Cutter Report Medical Records [address] [place] [address] Orthopedic, Surgeons Social History Tobacco Use Types [...] on filedocumented in this encounter Care Teams Diver Pumper Relationship Specialty Start Date End Date Jarrett Merlos MD PCP - General 06/08/01 03/22/20 Lee Fabian MD [address] [place] [address] PCP - General Internal Medicine 03/23/20 documented as of this encounter
--- OUTSIDE RECORDS SUMMARY | 2025-08-18 04:10 | XMS_ITS | Encounter Summary ---
Author Organization [employer] [facility] Address [address] [place] [address] Care Team Providers Care Powdered Sugar Pulverizer Operator Name Role Phone Jarrett Merlos MD Primary Care Provider Unavail able Lee Fabian MD Primary Care Provider [phone] Encounter Details Date Type Department Care Team Description 12/09/2019 Fountain Pen Nibs Inspector Report Medical Records [address] [place] [address] Abstract, Provider Social History Tobacco Use Types [...] on filedocumented in this encounter Care Teams Powdered Sugar Pulverizer Operator Relationship Specialty Start Date End Date Jarrett Merlos MD PCP - General 06/08/01 03/22/20 Lee Fabian MD [address] [place] [address] PCP - General Internal Medicine 03/23/20 documented as of this encounter
--- OUTSIDE RECORDS SUMMARY | 2025-08-18 04:10 | XMS_ITS | Encounter Summary ---
Author Organization [employer] [facility] Address [address] [place] [address] Care Team Providers Care Polymer Scientist Name Role Phone Jarrett Merlos MD Primary Care Provider Unavail able Lee Fabian MD Primary Care Provider [phone] Encounter Details Date Type Department Care Team Description 01/15/2017 Tree Shear Operator Report Medical Records [address] [place] [address] Lucrecia Duckworth NP Social History Tobacco Use [...] on filedocumented in this encounter Care Teams Polymer Scientist Relationship Specialty Start Date End Date Jarrett Merlos MD PCP - General 06/08/01 03/22/20 Lee Fabian MD [address] [place] [address] PCP - General Internal Medicine 03/23/20 documented as of this encounter
--- OUTSIDE RECORDS SUMMARY | 2025-08-18 04:10 | XMS_ITS | Encounter Summary ---
Author Organization [facility] [employer] [facility] Address [address] [place] [address] Care Team Providers Care Entry Level Project Coordinator Name Role Phone Jarrett Merlos MD Primary Care Provider Unavail able Lee Fabian MD Primary Care Provider [phone] Encounter Details Date Type Department Care Team Description 04/21/2014 Hospital Medical Records [address] [place] [address] Cisco Alexandre Social History Tobacco Use Types [...] on filedocumented in this encounter Care Teams Entry Level Project Coordinator Relationship Specialty Start Date End Date Jarrett Merlos MD PCP - General 06/08/01 03/22/20 Lee Fabian MD [address] [place] [address] PCP - General Internal Medicine 03/23/20 documented as of this encounter
--- OUTSIDE RECORDS SUMMARY | 2025-08-18 04:10 | XMS_ITS | Encounter Summary ---
Author Organization [facility] [employer] [facility] Address [address] [place] [address] Care Team Providers Care Artificial Flowers Starcher Name Role Phone Jarrett Merlos MD Primary Care Provider Unavail able Lee Fabian MD Primary Care Provider [phone] Encounter Details Date Type Department Care Team Description 04/24/2017 White Metal Caster Report Medical Records [address] [place] [address] Misty Munoz Social History Tobacco Use Types [...] on filedocumented in this encounter Care Teams Artificial Flowers Starcher Relationship Specialty Start Date End Date Jarrett Merlos MD PCP - General 06/08/01 03/22/20 Lee Fabian MD [address] [place] [address] PCP - General Internal Medicine 03/23/20 documented as of this encounter
--- OUTSIDE RECORDS SUMMARY | 2025-08-18 04:10 | XMS_ITS | Encounter Summary ---
Author Organization [employer] [facility] Address [address] [place] [address] Care Team Providers Care Special Education Coordinator Name Role Phone Jarrett Merlos MD Primary Care Provider Unavail able Lee Fabian MD Primary Care Provider [phone] Encounter Details Date Type Department Care Team Description 12/28/2018 Release of Information Medical Records [address] [place] [address] Abstract, Provider Social History Tobacco Use Types [...] in this encounter Care Teams Special Education Coordinator Relationship Specialty Start Date End Date Jarrett Merlos MD PCP - General 06/08/01 03/22/20 Lee Fabian MD [address] [place] [address] PCP - General Internal Medicine 03/23/20 documented as of this encounter
--- OUTSIDE RECORDS SUMMARY | 2025-08-18 04:10 | XMS_ITS | Encounter Summary ---
Author Organization [facility] [facility] Address [address] [place] [address] Care Team Providers Care Supervisor Drawing Name Role Phone Jarrett Merlos MD Primary Care Provider Unavail able Lee Fabian MD Primary Care Provider [phone] Encounter Details Date Type Department Care Team Description 02/16/2015 Forging Engineer Report Medical Records [address] [place] [address] Nishant Jane MD [address] [place] [address] Social History Tobacco Use Types Packs/Day Years [...] filedocumented in this encounter Care Teams Supervisor Drawing Relationship Specialty Start Date End Date Jarrett Merlos MD PCP - General 06/08/01 03/22/20 Lee Fabian MD [address] [place] [address] PCP - General Internal Medicine 03/23/20 documented as of this encounter
--- OUTSIDE RECORDS SUMMARY | 2025-08-18 04:10 | XMS_ITS | Encounter Summary ---
Author Organization [facility] [employer] [facility] Address [address] [place] [address] Care Team Providers Care Transportation Lead Name Role Phone Jarrett Merlos MD Primary Care Provider Unavail able Lee Fabian MD Primary Care Provider [phone] Encounter Details Date Type Department Care Team Description 03/21/2017 Athletic Team Physician Report Medical Records [address] [place] [address] Nani Holder Social History Tobacco Use Types [...] on filedocumented in this encounter Care Teams Transportation Lead Relationship Specialty Start Date End Date Jarrett Merlos MD PCP - General 06/08/01 03/22/20 Lee Fabian MD [address] [place] [address] PCP - General Internal Medicine 03/23/20 documented as of this encounter
--- OUTSIDE RECORDS SUMMARY | 2025-08-18 04:10 | XMS_ITS | Encounter Summary ---
Author Organization [employer] [facility] Address [address] [place] [address] Care Team Providers Care Sand Buffer Name Role Phone Jarrett Merlos MD Primary Care Provider Unavail able Lee Fabian MD Primary Care Provider [phone] Encounter Details Date Type Department Care Team Description 10/20/2015 Magazine Filler Report Medical Records [address] [place] [address] Juilo Aldridge Social History Tobacco Use Types Packs/Day [...] on filedocumented in this encounter Care Teams Sand Buffer Relationship Specialty Start Date End Date Jarrett Merlos MD PCP - General 06/08/01 03/22/20 Lee Fabian MD [address] [place] [address] PCP - General Internal Medicine 03/23/20 documented as of this encounter
--- OUTSIDE RECORDS SUMMARY | 2025-08-18 04:10 | XMS_ITS | Encounter Summary ---
Author Organization [employer] [facility] Address [address] [place] [address] Care Team Providers Care Customer Success Director Name Role Phone Jarrett Merlos MD Primary Care Provider Unavail able Lee Fabian MD Primary Care Provider [phone] Encounter Details Date Type Department Care Team Description 01/22/2017 Mortgage Broker Report Medical Records [address] [place] [address] Lucrecia Duckworth NP Social History Tobacco Use [...] on filedocumented in this encounter Care Teams Customer Success Director Relationship Specialty Start Date End Date Jarrett Merlos MD PCP - General 06/08/01 03/22/20 Lee Fabian MD [address] [place] [address] PCP - General Internal Medicine 03/23/20 documented as of this encounter
--- OUTSIDE RECORDS SUMMARY | 2025-08-18 04:10 | XMS_ITS | Encounter Summary ---
Author Organization [employer] [facility] Address [address] [place] [address] Care Team Providers Care Side Gluer Name Role Phone Jarrett Merlos MD Primary Care Provider Unavail able Lee Fabian MD Primary Care Provider [phone] Encounter Details Date Type Department Care Team Description 08/16/2019 Old Medical Records Medical Records [address] [place] [address] Abstract, Provider Social History Tobacco Use Types [...] on filedocumented in this encounter Care Teams Side Gluer Relationship Specialty Start Date End Date Jarrett Merlos MD PCP - General 06/08/01 03/22/20 Lee Fabian MD [address] [place] [address] PCP - General Internal Medicine 03/23/20 documented as of this encounter
--- OUTSIDE RECORDS SUMMARY | 2025-08-18 04:10 | XMS_ITS | Encounter Summary ---
Author Organization [facility] [facility] Address [address] [place] [address] Care Team Providers Care Mold Maker Plastic Molds Name Role Phone Jarrett Merlos MD Primary Care Provider Unavail able Lee Fabian MD Primary Care Provider [phone] Encounter Details Date Type Department Care Team Description 10/03/2017 Pharmacy Services Director Report Medical Records [address] [place] [address] Charles Salazar DPM Social History Tobacco Use [...] on filedocumented in this encounter Care Teams Mold Maker Plastic Molds Relationship Specialty Start Date End Date Jarrett Merlos MD PCP - General 06/08/01 03/22/20 Lee Fabian MD [address] [place] [address] PCP - General Internal Medicine 03/23/20 documented as of this encounter
--- OUTSIDE RECORDS SUMMARY | 2025-08-18 04:10 | XMS_ITS | Encounter Summary ---
Author Organization [facility] [facility] Address [address] [place] [address] Care Team Providers Care Kitchen Mechanic Name Role Phone Jarrett Merlos MD Primary Care Provider Unavail able Lee Fabian MD Primary Care Provider [phone] Encounter Details Date Type Department Care Team Description 02/05/2017 Community Action Worker Report Medical Records [address] [place] [address] Lucrecia Duckworth NP Social History Tobacco Use [...] on filedocumented in this encounter Care Teams Kitchen Mechanic Relationship Specialty Start Date End Date Jarrett Merlos MD PCP - General 06/08/01 03/22/20 Lee Fabian MD [address] [place] [address] PCP - General Internal Medicine 03/23/20 documented as of this encounter
--- OUTSIDE RECORDS SUMMARY | 2025-08-18 04:10 | XMS_ITS | Encounter Summary ---
Author Organization [employer] [facility] Address [address] [place] [address] Care Team Providers Care Academic Coordinator Name Role Phone Jarrett Merlos MD Primary Care Provider Unavail able Lee Fabian MD Primary Care Provider [phone] Encounter Details Date Type Department Care Team Description 09/05/2017 Home Health Certification Medical Records [address] [place] [address] Abstract, Provider Social History Tobacco Use Types [...] on filedocumented in this encounter Care Teams Academic Coordinator Relationship Specialty Start Date End Date Jarrett Merlos MD PCP - General 06/08/01 03/22/20 Lee Fabian MD [address] [place] [address] PCP - General Internal Medicine 03/23/20 documented as of this encounter
--- OUTSIDE RECORDS SUMMARY | 2025-08-18 04:10 | XMS_ITS | Encounter Summary ---
Author Organization [employer] [facility] Address [address] [place] [address] Care Team Providers Care Head Of Training And Development Name Role Phone Jarrett Merlos MD Primary Care Provider Unavail able Lee Fabian MD Primary Care Provider [phone] Encounter Details Date Type Department Care Team Description 10/03/2017 Research Animal Attendant Report Medical Records [address] [place] [address] Charles Salazar DPM Social History Tobacco Use [...] on filedocumented in this encounter Care Teams Head Of Training And Development Relationship Specialty Start Date End Date Jarrett Merlos MD PCP - General 06/08/01 03/22/20 Lee Fabian MD [address] [place] [address] PCP - General Internal Medicine 03/23/20 documented as of this encounter
--- OUTSIDE RECORDS SUMMARY | 2025-08-18 04:10 | XMS_ITS | Clinical Summary ---
Author Organization [facility] Address [address] [place] [address] Care Team Providers Care Business Intelligence Analyst Name Role Phone Lee Fabian MD Primary Care Provider Unavail able Vitaliy Fields MD Unavailable [phone] Dallas Camejo MD Unavailable Rolando Lopez MD Unavailable [phone] Cesar Fair MD Unavailable [phone] Daisy Her PT Unavailable [phone] Ena Mtz MD Unavailable Toni Rae MD Unavailable [phone] System, Provider Not In Unavailable Unavaila [...] of left lower extremity, initial encounter ([facility]) BELOW KNEE PROSTHESIS S/P LEFT BKA 11/05/24 [...] BLOOD SUGAR TWICE DAILY 02/11/20 25 Active AnavexTouch Ultra Test test strip 1 test strip by Other (specify) route as needed. 03/02/20 25 Active Lancets (AnavexTouch Delica Plus [id number]) Misc USE TO CHECK BLOOD SUGAR TWICE [...] (total knee replacement), right LEFT PROSTHETIC SOCKS [facility] FAX: [phone] 1 each 06/20/20 Active Active Problems Problem Noted Date Diagnosed [...] and IV ceftriaxone finished 12/28/24. Follows with [facility] ID. ? Repeat echo CKD (chronic kidney [...] nephrotoxic medications. Follows with Dr. Lopez in [place]. See last note 06/07/24. Assessment & Plan (09/03/2024 9:20 AM EST): Creatinine 1.4 GFR 55. Avoid nephrotoxic medications. Follows with Dr. Lopez in [place]. See last note 06/07/24. Hyperlipidemia Assessment & [...] Encounters Date Type Department Care Team Description 08/09/2025 8:15 AM [place] [address] Manuel Mesa MD S/P TKR (total knee replacement), right (Primary Dx) 06/28/2025 8:15 AM [place] [address] Manuel Mesa MD S/P TKR (total knee replacement), right (Primary Dx) 06/07/2025 2:15 PM EDT Office Visit Orthopedic [address] [place] [address] Manuel Mesa MD S/P TKR (total knee replacement), right (Primary Dx); Osteoarthritis of right knee, unspecified osteoarthritis type 06/07/2025 2:10 PM EDT Ancillary Procedure [facility] [address] [address] from Last 3 Months Social History Tobacco Use Types Packs/Day Years Used Date Smoking Tobacco: Former Cigarettes 1 29.9 1 977 - 2004 Smokeless Tobacco: Never Tobacco Cessation:Counseling Given: Not Answered Comments:Cigar smoking - quit 04/11/25; cig smoking was off and on Alcohol Use Standard Drinks/Week Comments Yes 21 (1 standard drink = 0.6 oz pure alcohol) 2 drinks/5-7 nights/advised to stop 2 weeks before surgery [facility] [employer] Answer Date Recorded In the past 12 months has [employer] oil, or water General Specific threatened to shut off services in your [...] time in the past 12 m [facility], were you homeless or living in a [...] 05/16/2025 12:23 PM EDT Plan of Treatment Health Maintenance [...] , 07/08/2023, Additional history exists COVID-19 Vaccine (2024- season) 2025 07/08/2023, 08/15/2021, 01/16/2021, Additional history exists Chronic Controlled Substance User PDMP Review 07/05/2025 04/06/2025, 09/01/2024 Hemoglobin A1C 11/30/2025 06/02/2025, 03/30, 03/02/2025, Additional history exists Creatinine with GFR 05/17/2026 05/17/2025, 05/16/2025, 04/22/2025, Additional history exists Hepatitis B Vaccines Aged Out No long er eligible based on patient's age to complete this topic Medical Devices Implanted Type Area Director Of Vocational Training Device Identifier Shelf Expiration Date Model / Serial / Lot [id number] Cement Bone [employer]c R 40gm Grn - [id number] Implanted:Qty : 1 on 05/16/2025 by Manuel Mesa MD at [facility] Cement Right: Knee [employer] [id number] 09/28/2029 [id number] / / [id number] Cement Bone [employer]c R 40gm Grn - [id number] Implanted:Qty : 1 on 05/16/2025 by Manuel Mesa MD at [facility] Cement Right: Knee [employer] [id number] 09/28/2029 [id number] / / [id number] Component Femoral 10 Std Knee Right Crcte Rtn Cement Persona - [id number] Implanted:Qty : 1 on 05/16/2025 by Manuel Mesa MD at [facility] Joint Prosthesis Right: Knee [employer] [id number] 01/31/2035 [id number] / / [id number] Insert Articular 8-11 G-H 11mm Knee Right Vivacit-E Persona - [id number] Implanted:Qty : 1 on 05/16/2025 by Manuel Mesa MD at [facility] Joint Prosthesis Right: Knee [employer] [id number] 06/07/2029 [id number] / / [id number] 0d Keel Right G Tibia Implanted:Qty : 1 on 05/16/2025 by Manuel Mesa MD at [facility] Joint Prosthesis Right: Knee [employer] 10/08/2034 [id number] / / [id number] Pacemaker Cardiac Micra Av2 Ldls Bndl - [id number] Implanted:Qty : 1 on 11/17/2024 by Rui Pabon MD at [facility] Pacemaker Left: Chest [employer] [id number] 02/09/2026 [id number] / [id number] / Explanted Type Area Director Of Vocational Training Device Identifier Shelf Expiration Date Model / Serial / Lot 5076-52 Lead Pacing 52cm 6.2fr 2mm 10mm Spc Sm Straight [facility] Vntr- 6 Implanted:09/30 (Quantity not on file) Explanted:Qty: 1 on 11/17/2024 by Rui Pabon MD Lead [employer] 5076-52 / [id number] / [id number] Lead Pacing 58cm 6.2fr 2mm 10mm Spc Sm Straight Atr Vntrc- 6 Implanted:09/30 (Quantity not on file) Explanted:Qty: 1 on 11/17/2024 by Rui Pabon MD Lead [employer] 5076-58 / [id number] / [id number] Pacemaker Cardiac Advisa Dr Debbie Chairez 2 Chamber Digital- [id number] Implanted:09/30 (Quantity not on file) Explanted:Qty: 1 on 11/17/2024 by Rui Pabon MD Pacemaker [employer] [id number] / [id number] / Procedures Procedure Name Priority Date/Time Associated Diagnosis Comments ERYTHROCYTE SEDIMENTATION RATE (ESR) Routine 07/04/2025 3:16 PM EDT S/P TKR (total knee replacement), right C-REACTIVE PROTEIN Routine 07/04/2025 3: 16 PM EDT S/P TKR (total knee replacement), right XR KNEE 3 VIEWS-RIGHT Routine 06/07/2025 2:53 PM EDT S/P TKR (total knee replacement), right BASIC METABOLIC PANEL Routine 05/17/2025 5:27 AM EDT HEMOGLOBIN A1C WITH ESTIMATED AVERAGE GLUCOSE Routine [...] Sedimentation Rate (ESR) (07/04/2025 3:16 PM EDT) [facility] Erythrocyte Sediment Rate (ESR) 11 < OR = 20 mm/h [employer] Blood Blood specimen / Unknown 07/04/2025 3:16 PM EDT 07/04/2025 3:17 PM EDT Narrative [facility]ST - 07/05/2025 9:04 AM EDT FASTING:NO FASTING: NO us Manuel Mesa MD LAB BLOOD ORDERABLES Fin al Result [facility] [address] [place] [phone] * (ABNORMAL) C-REACTIVE PROTEIN (07/04/2025 3:16 PM EDT) C-Reactive Protein 20.6(H) <8.0 mg/L [email or web address] Blood Blood specimen / Unknown 07/04/2025 3:16 PM EDT 07/04/2025 3:17 PM EDT Narrative [facility]ST - 07/05/2025 9:04 AM EDT FASTING:NO FASTING: NO Manuel Mesa MD LAB BLOOD ORDERABLES Fin al Result Performing Organization Address City/[facility]/ZIP Co de Phone Number [facility] [address] [place] [phone] * XR Knee 3 views-Right (06/07/2025 2:53 PM EDT) Narrative OA - 06/07/2025 2:53 PM EDT This exam was performed in office at [facility] and images reviewed by orthopedic provider. Any findings are documented within ambulatory encounter note on date of service. Manuel Mesa MD IMG DIAGNOSTIC IMAGING O RDERABLES Final Result Performing Organization Address City/[facility] Co de Phone Number OAH * (ABNORMAL) Basic Metabolic Panel (05/17/2025 5:27 AM EDT) Glucose 157(H) 65 - 99 mg/dL 05/17/2025 6:19 AM T [facility] Comment:Fasting: <100 mg/dL, Non-Fasting: <200 mg/dL (ADA 2005) Blood Urea Nitrogen (BUN) 29(H) 8 - 21 mg/dL 05/17/2025 6:19 AM EDT [facility] Creatinine 1.6(H) 0.5 - 1.3 mg/dL 05/17/2025 6:19 AM [facility] eGFR 48(L) >59 05/17/2025 6:19 AM [facility] Comment:CKD-EPI (2020) in mL /min/1.73 sq meters. Sodium 138 136 - 145 mmol/L 05/17/2025 6:19 AM EDT [facility] Potassium 3.9 3.4 - 5.3 mmol/L 05/17/2025 6:19 AM EDT [facility] Chloride 104 98 - 107 mmol/L 05/17/2025 6:19 AM EDT [facility] CO2 24 22 - 33 mmol/L 05/17/2025 6:19 AM EDT [facility] Anion Gap 10 7 - 17 05/17/2025 6:19 AM EDT [facility] Calcium 8.7 8.7 - 10.5 mg/dL 05/17/2025 6:19 AM EDT [facility] BUN/Creatinine Ratio 18 10.0 - 25.0 Ratio 05/17/2025 6:19 AM EDT [facility] Blood Blood specimen / Unknown 05/17/2025 5:27 AM EDT 05/17/2025 5:47 AM EDT Alice Dobbins PA-C LAB BLOOD ORDERABLES Final Resul t [address] [address], [address] [address] from Last 3 Months or Most Recently Relevant to Health Maintenance Insurance ALAYNA Cipriano MEDICARE ALAYNA Cipriano MEDICARE AETNA MGD MEDICARE Advance Directives Documents on File Type Date Recorded Patient Graduate Student Expl anation Advance Directive-Scan 11/10/2024 Revoc ation of Health Care Proxy 11/10/24 Advance Directive-Scan 11/10/2024 Healt h Care Proxy [facility] 11/10/24 * Full Code (Latest Code [...] Healthcare Agent Relationship Communication Luca(SON) [facility] b2b outside sales representative 1. Health Care Graduate Student [facility] [employer] b2b outside sales representative 1. Health Care Graduate Student Care Teams Business Intelligence Analyst Relationship Specialty Start Date End Date Lee Fabian MD PCP - General Internal Medicine 09/02/24 Vitaliy Fields MD [address] [place] [address] Cardiovascular Disease 09/02/24 Dallas Camejo MD [address] [place] [address] Surgery, Orthopedic 09/02/24 Rolando Lopez MD [address] Transplant - [address] [place] [address] Physician Nephrology 09/02/24 Cesar Fair MD 85 [facility] [address] [place] [address] Surgery, Cardiac 11/08/24 Daisy Her, PT 85 [facility] [address] [place] [address] Health Care AssistantWelding Machine Operator [facility] 11/18/24 Ena Mtz MD [address] [place] [address] Infectious Disease 04/12/25 Toni Rae MD [address] [address] Surgery, Vascular 04/12/25 System, Provider Not In [address] [place] [address] 04/12/25 Manuel Mesa MD 31 [facility] [address] [place] [address] Physician Surgery, Orthopedic 04/19/25
--- OUTSIDE RECORDS SUMMARY | 2025-08-18 04:10 | XMS_ITS | Encounter Summary ---
Author Organization [employer] [facility] Address [address] [place] [address] Care Team Providers Care Brick Tester Name Role Phone Jarrett Merlos MD Primary Care Provider Unavail able Lee Fabian MD Primary Care Provider [phone] Encounter Details Date Type Department Care Team Description 08/22/2014 Automatic Washer Mechanic Report Medical Records [address] [place] [address] Social History Tobacco Use Types Packs/Day Years [...] on filedocumented in this encounter Care Teams Brick Tester Relationship Specialty Start Date End Date Jarrett Merlos MD PCP - General 06/08/01 03/22/20 Lee Fabian MD [address] [place] [address] PCP - General Internal Medicine 03/23/20 documented as of this encounter
--- OUTSIDE RECORDS SUMMARY | 2025-08-18 04:10 | XMS_ITS | Encounter Summary ---
Author Organization [facility] Address [address] [place] [address] Care Team Providers Care Batting Machine Operator Insulation Name Role Phone Jarrett Merlos MD Primary Care Provider Unavail able Lee Fabian MD Primary Care Provider [phone] Encounter Details Date Type Department Care Team Description 10/28/2015 Hospital Medical Records [address] [place] [address] Julio Aldridge Social History Tobacco Use Types [...] on filedocumented in this encounter Care Teams Batting Machine Operator Insulation Relationship Specialty Start Date End Date Jarrett Merlos MD PCP - General 06/08/01 03/22/20 Lee Fabian MD [address] [place] [address] PCP - General Internal Medicine 03/23/20 documented as of this encounter
--- OUTSIDE RECORDS SUMMARY | 2025-08-18 04:10 | XMS_ITS | Encounter Summary ---
Author Organization [facility] Address [address] [place] [address] Care Team Providers Care Baton Twirler Name Role Phone Jarrett Merlos MD Primary Care Provider Unavail able Lee Fabian MD Primary Care Provider [phone] Encounter Details Date Type Department Care Team Description 02/07/2011 [facility] Medical Records [address] [place] [address] Charles Arthur MD Social History Tobacco Use [...] on filedocumented in this encounter Care Teams Baton Twirler Relationship Specialty Start Date End Date Jarrett Merlos MD PCP - General 06/08/01 03/22/20 Lee Fabian MD [address] [place] [address] PCP - General Internal Medicine 03/23/20 documented as of this encounter
--- OUTSIDE RECORDS SUMMARY | 2025-08-18 04:10 | XMS_ITS | Encounter Summary ---
Author Organization [facility] [facility] Address [address] [place] [address] Care Team Providers Care Shellacker Name Role Phone Jarrett Merlos MD Primary Care Provider Unavail able Lee Fabian MD Primary Care Provider [phone] Encounter Details Date Type Department Care Team Description 03/14/2015 Food And Beverage Assistant Report Medical Records [address] [place] [address] Dallas Camejo Social History Tobacco Use Types [...] on filedocumented in this encounter Care Teams Shellacker Relationship Specialty Start Date End Date Jarrett Merlos MD PCP - General 06/08/01 03/22/20 Lee Fabian MD [address] [place] [address] PCP - General Internal Medicine 03/23/20 documented as of this encounter
--- OUTSIDE RECORDS SUMMARY | 2025-08-18 04:10 | XMS_ITS | Encounter Summary ---
Author Organization [facility] Address [address] [place] [address] Care Team Providers Care Aluminum Pool Installer Name Role Phone Jarrett Merlos MD Primary Care Provider Unavail able Lee Fabian MD Primary Care Provider [phone] Encounter Details Date Type Department Care Team Description 12/19/2016 Account Associate Report Medical Records [address] [place] [address] Misty Munoz Social History Tobacco Use Types [...] on filedocumented in this encounter Care Teams Aluminum Pool Installer Relationship Specialty Start Date End Date Jarrett Merlos MD PCP - General 06/08/01 03/22/20 Lee Fabian MD [address] [place] [address] PCP - General Internal Medicine 03/23/20 documented as of this encounter
--- OUTSIDE RECORDS SUMMARY | 2025-08-18 04:10 | XMS_ITS | Encounter Summary ---
Author Organization [facility] Address [address] [place] [address] Care Team Providers Care Forgesmith Name Role Phone Jarrett Merlos MD Primary Care Provider Unavail able Lee Fabian MD Primary Care Provider [phone] Encounter Details Date Type Department Care Team Description 11/10/2015 Hospital Medical Records [address] [place] [address] Charles Belle MD [address] [place] [address] Social History Tobacco Use Types Packs/Day Years [...] on filedocumented in this encounter Care Teams Forgesmith Relationship Specialty Start Date End Date Jarrett Merlos MD PCP - General 06/08/01 03/22/20 Lee Fabian MD [address] [place] [address] PCP - General Internal Medicine 03/23/20 documented as of this encounter
--- OUTSIDE RECORDS SUMMARY | 2025-08-18 04:10 | XMS_ITS | Encounter Summary ---
Author Organization [facility] Address [address] [place] [address] Care Team Providers Care Middle School Teacher Name Role Phone Jarrett Merlos MD Primary Care Provider Unavail able Lee Fabian MD Primary Care Provider [phone] Encounter Details Date Type Department Care Team Description 03/03/2019 Universal Branch Consultant Report Medical Records [address] [place] [address] April Tiwari PA-C Social History Tobacco Use [...] on filedocumented in this encounter Care Teams Middle School Teacher Relationship Specialty Start Date End Date Jarrett Merlos MD PCP - General 06/08/01 03/22/20 Lee Fabian MD [address] [place] [address] PCP - General Internal Medicine 03/23/20 documented as of this encounter
--- OUTSIDE RECORDS SUMMARY | 2025-08-18 04:10 | XMS_ITS | Encounter Summary ---
Author Organization [facility] Address [address] [place] [address] Care Team Providers Care Home Economist Name Role Phone Jarrett Merlos MD Primary Care Provider Unavail able Lee Fabian MD Primary Care Provider [phone] Encounter Details Date Type Department Care Team Description 08/29/2014 Hospital Medical Records [address] [place] [address] Charles Belle MD [address] [place] [address] Social History Tobacco Use Types Packs/Day Years [...] on filedocumented in this encounter Care Teams Home Economist Relationship Specialty Start Date End Date Jarrett Merlos MD PCP - General 06/08/01 03/22/20 Lee Fabian MD [address] [place] [address] PCP - General Internal Medicine 03/23/20 documented as of this encounter
--- OUTSIDE RECORDS SUMMARY | 2025-08-18 04:10 | XMS_ITS | Encounter Summary ---
Author Organization [facility] Address [address] [place] [address] Care Team Providers Care Resident Care Technician Name Role Phone Lee Fabian MD Primary Care Provider [phone] Encounter Details Date Type Department Care Team Description 09/27/2020 Shop Supervisor Report Medical Records [address] [place] [address] Abstract, Provider Social History Tobacco Use Types [...] on filedocumented in this encounter Care Teams Resident Care Technician Relationship Specialty Start Date End Date Lee Fabian MD [address] [place] [id number] PCP - General Internal Medicine 03/23/20 documented as of this encounter
--- OUTSIDE RECORDS SUMMARY | 2025-08-18 04:10 | XMS_ITS | Encounter Summary ---
Author Organization [facility] Address [address] [place] [address] Care Team Providers Care Chicle Grinder Feeder Name Role Phone Jarrett eMrlos MD Primary Care Provider Unavail able Lee Fabian MD Primary Care Provider [phone] Encounter Details Date Type Department Care Team Description 12/22/2018 [facility] Medical Records [address] [place] [address] Abstract, Provider Social History Tobacco Use Types [...] on filedocumented in this encounter Care Teams Chicle Grinder Feeder Relationship Specialty Start Date End Date Jarrett Merlos MD PCP - General 06/08/01 03/22/20 Lee Fabian MD [address] [place] [address] PCP - General Internal Medicine 03/23/20 documented as of this encounter
--- OUTSIDE RECORDS SUMMARY | 2025-08-18 04:10 | XMS_ITS | Encounter Summary ---
Author Organization [employer] [facility] Address [address] [place] [address] Care Team Providers Care Financial Foundations Representative Name Role Phone Lee Fabian MD Primary Care Provider [phone] Encounter Details Date Type Department Care Team Description 06/30/2020 Rn Documentation Report Medical Records [address] [place] [address] Rehab., [place] Social History Tobacco Use Types Packs/Day Years [...] on filedocumented in this encounter Care Teams Financial Foundations Representative Relationship Specialty Start Date End Date Lee Fabian MD [address] [place] [address] PCP - General Internal Medicine 03/23/20 documented as of this encounter
--- OUTSIDE RECORDS SUMMARY | 2025-08-18 04:10 | XMS_ITS | Encounter Summary ---
Author Organization [facility] Address [address] [place] [address] Care Team Providers Care Humidifier Maintenance Worker Name Role Phone Jarrett Merlos MD Primary Care Provider Unavail able Lee Fabian MD Primary Care Provider [phone] Encounter Details Date Type Department Care Team Description 12/22/2018 Health Coordinator Report Medical Records [address] [place] [address] Héctor Blanchard Social History Tobacco Use Types [...] on filedocumented in this encounter Care Teams Humidifier Maintenance Worker Relationship Specialty Start Date End Date Jarrett Merlos MD PCP - General 06/08/01 03/22/20 Lee Fabian MD [address] [place] [address] PCP - General Internal Medicine 03/23/20 documented as of this encounter
--- OUTSIDE RECORDS SUMMARY | 2025-08-18 04:10 | XMS_ITS | Encounter Summary ---
Author Organization [facility] Address [address] [place] [address] Care Team Providers Care Car Dryer Name Role Phone Jarrett Merlos MD Primary Care Provider Unavail able Lee Fabian MD Primary Care Provider [phone] Encounter Details Date Type Department Care Team Description 04/10/2017 Outsewer Report Medical Records [address] [place] [address] Dallas Camejo Social History Tobacco Use Types [...] on filedocumented in this encounter Care Teams Car Dryer Relationship Specialty Start Date End Date Jarrett Merlos MD PCP - General 06/08/01 03/22/20 Lee Fabian MD [address] [place] [address] PCP - General Internal Medicine 03/23/20 documented as of this encounter
--- OUTSIDE RECORDS SUMMARY | 2025-08-18 04:10 | XMS_ITS | Encounter Summary ---
Author Organization [facility] Address [address] [place] [address] Care Team Providers Care Offbearer Sewer Pipe Name Role Phone Jarrett Merlos MD Primary Care Provider Unavail able Lee Fabian MD Primary Care Provider [phone] Encounter Details Date Type Department Care Team Description 01/11/2015 Cashier Supervisor Report Medical Records [address] [place] [address] Nishant Jane MD [address] [place] [address] Social History Tobacco Use Types Packs/Day Years [...] on filedocumented in this encounter Care Teams Offbearer Sewer Pipe Relationship Specialty Start Date End Date Jarrett Merlos MD PCP - General 06/08/01 03/22/20 Lee Fabian MD [address] [place] [address] PCP - General Internal Medicine 03/23/20 documented as of this encounter
--- OUTSIDE RECORDS SUMMARY | 2025-08-18 04:10 | XMS_ITS | Encounter Summary ---
Author Organization [facility] [facility] Address [address] [place] [address] Care Team Providers Care Publishing Agent Name Role Phone Jarrett Merlos MD Primary Care Provider Unavail able Lee Fabian MD Primary Care Provider [phone] Encounter Details Date Type Department Care Team Description 12/08/2018 Inspector Process Report Medical Records [address] [place] [address] April Tiwari PA-C Social History Tobacco Use [...] on filedocumented in this encounter Care Teams Publishing Agent Relationship Specialty Start Date End Date Jarrett Merlos MD PCP - General 06/08/01 03/22/20 Lee Fabian MD [address] [place] [address] PCP - General Internal Medicine 03/23/20 documented as of this encounter
--- OUTSIDE RECORDS SUMMARY | 2025-08-18 04:10 | XMS_ITS | Encounter Summary ---
Author Organization [facility] [employer] [facility] Address [address] [place] [address] Care Team Providers Care Cargo Broker Name Role Phone Jarrett Merlos MD Primary Care Provider Unavail able Lee Fabian MD Primary Care Provider [phone] Encounter Details Date Type Department Care Team Description 10/12/2019 Speech Clinician Report Medical Records [address] [place] [address] Erik Huston Social History Tobacco Use Types [...] on filedocumented in this encounter Care Teams Cargo Broker Relationship Specialty Start Date End Date Jarrett Merlos MD PCP - General 06/08/01 03/22/20 Lee Fabian MD [address] [place] [address] PCP - General Internal Medicine 03/23/20 documented as of this encounter
--- OUTSIDE RECORDS SUMMARY | 2025-08-18 04:10 | XMS_ITS | Encounter Summary ---
Author Organization [facility] Address [address] [place] [address] Care Team Providers Care Research Nurse Practitioner Name Role Phone Jarrett Merlos MD Primary Care Provider Unavail able Lee Fabian MD Primary Care Provider [phone] Encounter Details Date Type Department Care Team Description 02/18/2019 Windows Infrastructure Engineer Report Medical Records [address] [place] [address] Hui Salguero, MARIAELENA Social History Tobacco Use Types Packs/Day Years [...] filedocumented in this encounter Care Teams Research Nurse Practitioner Relationship Specialty Start Date End Date Jarrett Merlos MD PCP - General 06/08/01 03/22/20 Lee Fabian MD [address] [place] [address] PCP - General Internal Medicine 03/23/20 documented as of this encounter
--- OUTSIDE RECORDS SUMMARY | 2025-08-18 04:10 | XMS_ITS | Encounter Summary ---
Author Organization [facility] Address [address] [place] [address] Care Team Providers Care Hotel Registration Clerk Name Role Phone Lee Fabian MD Primary Care Provider Unavail able Vitaliy Fields MD Unavailable Dallas Camejo MD Unavailable Rolando Lopez MD Unavailable Cesar Fair MD Unavailable Daisy Her PT Unavailable Ena Mtz MD Unavailable [phone] Toni Rae MD Unavailable [phone] System, Provider Not In Unavailable Unavaila Manuel Soler MD Unavailable Encounter Details Date Type Department Care Team (Late st Contact Info) Description 12/15/2024 Scanned Document [facility] [place] [address] Dallas Camejo MD [address] [place] [address] Social History Tobacco Use Types Packs/Day Years Used Date Smoking Tobacco: Former Cigarettes 1 29.9 1 977 - 2004 Smokeless Tobacco: Never Alcohol Use Standard Drinks/Week Comments Yes 21 (1 standard drink = 0.6 oz pu re alcohol) [facility] Utilities Answer Date Recorded In the past [...] were you homeless or living in a detention (including now)? No 11/03/2024 Sex and Gender [...] on filedocumented in this encounter Care Teams Hotel Registration Clerk Relationship Specialty Start Date End Date Lee Fabian MD PCP - General Internal Medicine 09/02/24 Vitaliy Fields MD [address] [address] Cardiovascular Disease 09/02/24 Dallas Camejo MD 7 [place] [address] Surgery, Orthopedic 09/02/24 Rolando Lopez MD [address] Transplant - 14 [place] [address] Physician Nephrology 09/02/24 Cesar Fair MD [address] [address] Surgery, Cardiac 11/08/24 Daisy Her, PT [address] [address] Geospatial Systems IntegratorGaming Cashier Medicine and Rehabilitation 11/18/24 Ena Mtz MD [address] [place] [address] Infectious Disease 04/12/25 Toni Rae MD [address] [address] Surgery, Vascular 04/12/25 System, Provider Not In [address] [address] 04/12/25 Manuel Mesa MD [address] [place] [address] Physician Surgery, Orthopedic 04/19/25 documented as of this encounter
--- OUTSIDE RECORDS SUMMARY | 2025-08-18 04:12 | XMS_ITS | Encounter Summary ---
Author Organization [facility] Address [address] [place] [address] Care Team Providers Care Cigarette Tipper Name Role Phone Jarrett Merlos MD Primary Care Provider Unavail able Lee Fabian MD Primary Care Provider [phone] Encounter Details Date Type Department Care Team Description 11/14/2015 Hospital Medical Records 4 [place] [address] Amor Torres MD [address] [place] [address] Social History Tobacco Use Types Packs/Day Years [...] on filedocumented in this encounter Care Teams Cigarette Tipper Relationship Specialty Start Date End Date Jarrett Merlos MD PCP - General 06/08/01 03/22/20 Lee Fabian MD [address] [place] [address] PCP - General Internal Medicine 03/23/20 documented as of this encounter
--- OUTSIDE RECORDS SUMMARY | 2025-08-18 04:12 | XMS_ITS | Encounter Summary ---
Author Organization [facility] [facility] Address [address] [place] [address] Care Team Providers Care Complex Commercial Litigation Paralegal Name Role Phone Jarrett Merlos MD Primary Care Provider Unavail able Lee Fabian MD Primary Care Provider [phone] Encounter Details Date Type Department Care Team Description 11/27/2015 Industrial Boilermaker Report Medical Records [address] [place] [address] Nishant Jane MD [address] [place] [address] Social History Tobacco Use Types Packs/Day Years [...] on filedocumented in this encounter Care Teams Complex Commercial Litigation Paralegal Relationship Specialty Start Date End Date Jarrett Merlos MD PCP - General 06/08/01 03/22/20 Lee Fabian MD [address] [place] [address] PCP - General Internal Medicine 03/23/20 documented as of this encounter
--- OUTSIDE RECORDS SUMMARY | 2025-08-18 04:12 | XMS_ITS | Encounter Summary ---
Author Organization [employer] [facility] Address [address] [place] [address] Care Team Providers Care General Machine Operator Name Role Phone Lee Fabian MD Primary Care Provider [phone] Encounter Details Date Type Department Care Team Description 09/13/2021 Support Teacher Report Medical Records [address] [place] [address] Erik Huston Social History Tobacco Use Types [...] on filedocumented in this encounter Care Teams General Machine Operator Relationship Specialty Start Date End Date Lee Fabian MD [address] [place] [address] [id number] PCP - General Internal Medicine 03/23/20 documented as of this encounter
--- OUTSIDE RECORDS SUMMARY | 2025-08-18 04:12 | XMS_ITS | Encounter Summary ---
Author Organization [employer] [facility] Address [address] [place] [address] Care Team Providers Care Linen Tech Name Role Phone Jarrett Merlos MD Primary Care Provider Unavail able Lee Fabian MD Primary Care Provider [phone] Encounter Details Date Type Department Care Team Description 12/18/2017 Transfer Records Medical Records [address] [place] [address] Abstract, Provider Social History Tobacco Use Types [...] on filedocumented in this encounter Care Teams Linen Tech Relationship Specialty Start Date End Date Jarrett Merlos MD PCP - General 06/08/01 03/22/20 Lee Fabian MD [address] [place] [address] PCP - General Internal Medicine 03/23/20 documented as of this encounter
--- OUTSIDE RECORDS SUMMARY | 2025-08-18 04:12 | XMS_ITS | Encounter Summary ---
Author Organization [facility] Address [address] [place] [address] Care Team Providers Care Welder Repair Name Role Phone Jarrett Merlos MD Primary Care Provider Unavail able Lee Fabian MD Primary Care Provider Encounter Details Date Type Department Care Team Description 10/28/2011 Eye Aircraft Shipping Checker Report Medical Records [address] [place] [address] Mary Akbar Social History Tobacco Use Types [...] on filedocumented in this encounter Care Teams Welder Repair Relationship Specialty Start Date End Date Jarrett Merlos MD PCP - General 06/08/01 03/22/20 Lee Fabian MD [address] [place] [address] PCP - General Internal Medicine 03/23/20 documented as of this encounter
--- OUTSIDE RECORDS SUMMARY | 2025-08-18 04:12 | XMS_ITS | Encounter Summary ---
Author Organization [employer] [facility] Address [address] [place] [address] Care Team Providers Care Hardware Engineer Name Role Phone Lee Fabian MD Primary Care Provider [phone] Encounter Details Date Type Department Care Team Description 10/27/2023 Dietary Server Report Medical Records [address] [place] [address] Winston Collins, DO Social History Tobacco Use Types Packs/Day Years [...] on filedocumented in this encounter Care Teams Hardware Engineer Relationship Specialty Start Date End Date Lee Fabian MD [address] [place] [address] [id number] PCP - General Internal Medicine 03/23/20 documented as of this encounter
--- OUTSIDE RECORDS SUMMARY | 2025-08-18 04:12 | XMS_ITS | Encounter Summary ---
Author Organization [employer] [facility] Address [address] [place] [address] Care Team Providers Care Regulatory Internship Name Role Phone Lee Fabian MD Primary Care Provider [phone] Encounter Details Date Type Department Care Team Description 08/23/2022 Mortgage Field Inspector Report Medical Records [address] [place], [place] [address] [place] [address] Social History Tobacco Use Types Packs/Day Years [...] suspected to have Coronavirus/COVID-19? No / Unsure 08/11/2022 1:08 PM EST documented as of this encounter Plan of Treatment Not on file documented as of this encounter Visit Diagnoses Not on filedocumented in this encounter Care Teams Regulatory Internship Relationship Specialty Start Date End Date Lee Fabian MD [address] [place] [address] PCP - General Internal Medicine 03/23/20 documented as of this encounter
--- OUTSIDE RECORDS SUMMARY | 2025-08-18 04:12 | XMS_ITS | Encounter Summary ---
Author Organization [facility] Address [address] [place] [address] Care Team Providers Care Adoption Coordinator Name Role Phone Jarrett Merlos MD Primary Care Provider Unavail able Lee Fabian MD Primary Care Provider [phone] Encounter Details Date Type Department Care Team Description 11/21/2015 Home Health Certification Medical Records [address] [place] [address] Abstract, Provider Social History Tobacco Use Types [...] on filedocumented in this encounter Care Teams Adoption Coordinator Relationship Specialty Start Date End Date Jarrett Merlos MD PCP - General 06/08/01 03/22/20 Lee Fabian MD [address] [place] [address] PCP - General Internal Medicine 03/23/20 documented as of this encounter
--- OUTSIDE RECORDS SUMMARY | 2025-08-18 04:12 | XMS_ITS | Encounter Summary ---
Author Organization [facility] [facility] Address [address] [place] [address] Care Team Providers Care Hog Driver Name Role Phone Jarrett Merlos MD Primary Care Provider Unavail able Lee Fabian MD Primary Care Provider [phone] Encounter Details Date Type Department Care Team Description 06/21/2011 Photo Lab Specialist Report Medical Records [address] [place] [address] Cisco Alexandre Social History Tobacco Use Types [...] on filedocumented in this encounter Care Teams Hog Driver Relationship Specialty Start Date End Date Jarrett Merlos MD PCP - General 06/08/01 03/22/20 Lee Fabian MD [address] [place] [address] PCP - General Internal Medicine 03/23/20 documented as of this encounter
--- OUTSIDE RECORDS SUMMARY | 2025-08-18 04:12 | XMS_ITS | Encounter Summary ---
Author Organization [employer] [facility] Address [address] [place] [address] Care Team Providers Care Electrical Appliance Mechanic Name Role Phone Lee Fabian MD Primary Care Provider [phone] Encounter Details Date Type Department Care Team Description 10/22/2023 Hospital Medical Records [address] [place] [address] Social History Tobacco Use Types Packs/Day Years [...] on filedocumented in this encounter Care Teams Electrical Appliance Mechanic Relationship Specialty Start Date End Date Lee Fabian MD [address] [place], [place] [phone] PCP - General Internal Medicine 03/23/20 documented as of this encounter
--- OUTSIDE RECORDS SUMMARY | 2025-08-18 04:12 | XMS_ITS | Encounter Summary ---
Author Organization [facility] Address [address] [place] [address] Care Team Providers Care Fur Tinter Name Role Phone Lee Fabian MD Primary Care Provider Unavail able Vitaliy Fields MD Unavailable Dallas Camejo MD Unavailable Rolando Lopez MD Unavailable Cesar Fair MD Unavailable Daisy Her PT Unavailable Ena Mtz MD Unavailable Toni Rae MD Unavailable [phone] System, Provider Not In Unavailable Unavaila Manuel Soler MD Unavailable Encounter Details Date Type Department Care Team (Late st Contact Info) Description 12/07/2024 Scanned Document [facility] 7 [facility] [address] [place], [place] [address] Alejandra Eddy [address] [place] [address] Social History Tobacco Use Types Packs/Day Years Used Date Smoking Tobacco: Former Cigarettes 1 29.9 1 977 - 2004 Smokeless Tobacco: Never Alcohol Use Standard Drinks/Week Comments Yes 21 (1 standard drink = 0.6 oz pu re alcohol) [facility] Utilities Answer Date Recorded In the past 12 months has th e electric, gas, oil, or water [employer] threatened to shut off services in your [...] filedocumented in this encounter Care Teams Fur Tinter Relationship Specialty Start Date End Date Lee Fabian MD PCP - General Internal Medicine 09/02/24 Vitaliy Fields MD [address] [place] [address] Cardiovascular Disease 09/02/24 Dallas Camejo MD [address] [place] [address] Surgery, Orthopedic 09/02/24 Rolando Lopez MD [address] [place] [address] Transplant - 14 [place] [address] Physician Nephrology 09/02/24 Cesar Fair MD [address] [place] [address] Surgery, Cardiac 11/08/24 Daisy Her, PT 85 [facility] [address] [place] [address] Zoology ProfessorResidential Sales Manager Medicine and Rehabilitation 11/18/24 Ena Mtz MD [address] [place] [address] Infectious Disease 04/12/25 Toni Rae MD [address] [address] Surgery, Vascular 04/12/25 System, Provider Not In [address] [address] 04/12/25 Manuel Mesa MD 31 [facility] [address] [place] [address] Physician Surgery, Orthopedic 04/19/25 documented as of this encounter
--- OUTSIDE RECORDS SUMMARY | 2025-08-18 04:12 | XMS_ITS | Encounter Summary ---
Author Organization [facility] Address [address] [place] [address] Care Team Providers Care Multiple Resaw Operator Name Role Phone Lee Fabian MD Primary Care Provider Unavail able Vitaliy Fields MD Unavailable [phone] Dallas Camejo MD Unavailable Rolando Lopez MD Unavailable Cesar Fair MD Unavailable [phone] Daisy Her PT Unavailable [phone] Ena Mtz MD Unavailable [phone] Toni Rae MD Unavailable [phone] System, Provider Not In Unavailable Unavaila Manuel Soler MD Unavailable [phone] Encounter Details Date Type Department Care Team (Late st Contact Info) Description 10/19/2024 Scanned Document [facility] 7 [facility] [address] [place], [place] [address] Alejandra Eddy [address] [place] [address] Social History Tobacco Use Types Packs/Day Years Used Date Smoking Tobacco: Former Cigarettes 1 29.9 1 977 - 2004 Smokeless Tobacco: Never Alcohol Use Standard Drinks/Week Comments Yes 21 (1 standard drink = 0.6 oz pu re alcohol) [facility] Utilities Answer Date Recorded In the past 12 months has th e electric, gas, oil, or water [employer] threatened to shut off services in your [...] time in the past 12 m [facility], were you homeless or living in a [...] documented as of this encounter Care Teams Multiple Resaw Operator Relationship Specialty Start Date End Date Lee Fabian MD PCP - General Internal Medicine 09/02/24 Vitaliy Fields MD [address] [address] Cardiovascular Disease 09/02/24 Dallas Camejo MD [address] [place] [address] Surgery, Orthopedic 09/02/24 Rolando Lopez MD [address] Transplant - 14 [place] [address] Physician Nephrology 09/02/24 Cesar Fair MD 85 [facility] [address] [place] [address] Surgery, Cardiac 11/08/24 Daisy Her, PT 85 [facility] [address] [place] [address] Quality Assurance AnalystExcelsior Machine Operator Medicine and Rehabilitation 11/18/24 Ena Mtz MD [address] [place] [address] Infectious Disease 04/12/25 Toni Rae MD [address] [address] Surgery, Vascular 04/12/25 System, Provider Not In [address] [address] 04/12/25 Manuel Mesa MD [address] [place] [address] Physician Surgery, Orthopedic 04/19/25 documented as of this encounter
--- OUTSIDE RECORDS SUMMARY | 2025-08-18 04:12 | XMS_ITS | Encounter Summary ---
Author Organization [facility] Address [address] [place] [address] Care Team Providers Care Roving Winder Name Role Phone Jarrett Merlos MD Primary Care Provider Unavail able Lee Fabian MD Primary Care Provider [phone] Encounter Details Date Type Department Care Team Description 12/19/2011 [facility] Medical Records [address] [place] [address] DesiletsDeep MD Social History Tobacco Use Types [...] on filedocumented in this encounter Care Teams Roving Winder Relationship Specialty Start Date End Date Jarrett Merlos MD PCP - General 06/08/01 03/22/20 Lee Fabian MD [address] [place] [address] PCP - General Internal Medicine 03/23/20 documented as of this encounter
--- OUTSIDE RECORDS SUMMARY | 2025-08-18 04:12 | XMS_ITS | Encounter Summary ---
Author Organization [facility] Address [address] [place] [address] Care Team Providers Care Network Architect Name Role Phone Jarrett Merlos MD Primary Care Provider Unavail able Lee Fabian MD Primary Care Provider [phone] Encounter Details Date Type Department Care Team Description 08/21/2011 Hide And Skin Classer Report Medical Records [address] [place] [address] Fide Alfredo Social History Tobacco Use Types Packs/Day Years [...] on filedocumented in this encounter Care Teams Network Architect Relationship Specialty Start Date End Date Jarrett Merlos MD PCP - General 06/08/01 03/22/20 Lee Fabian MD [address] [place] [address] PCP - General Internal Medicine 03/23/20 documented as of this encounter
--- OUTSIDE RECORDS SUMMARY | 2025-08-18 04:12 | XMS_ITS | Encounter Summary ---
Author Organization [facility] Address [address] [place] [address] Care Team Providers Care Rn Security Name Role Phone Lee Fabian MD Primary Care Provider Unavail able Vitaliy Fiedls MD Unavailable Dallas Camejo MD Unavailable [phone] Rolando Lopez MD Unavailable Cesar Fair MD Unavailable Daisy Her PT Unavailable Ena Mtz MD Unavailable [phone] Toni Rae MD Unavailable [phone] System, Provider Not In Unavailable Unavaila Manuel Sloer MD Unavailable Encounter Details Date Type Department Care Team (Late st Contact Info) Description 10/19/2024 Scanned Document [facility] 7 [facility] [address] [place], [place] [address] Alejandra Eddy [address] [place] [address] Social History Tobacco Use Types Packs/Day Years Used Date Smoking Tobacco: Former Cigarettes 1 29.9 1 977 - 2004 Smokeless Tobacco: Never Alcohol Use Standard Drinks/Week Comments Yes 21 (1 standard drink = 0.6 oz pu re alcohol) [facility] Utilities Answer Date Recorded In the past 12 months has th e electric, gas, oil, or water [employer] threatened to shut off services in your [...] any time in the past 12 m [facility], were you homeless or living in [...] documented as of this encounter Care Teams Rn Security Relationship Specialty Start Date End Date Lee Fabian MD PCP - General Internal Medicine 09/02/24 Vitaliy Fields MD [address] [address] Cardiovascular Disease 09/02/24 Dallas Camejo MD [address] [place] [address] Surgery, Orthopedic 09/02/24 Rolando Lopez MD [address] Transplant - 14 [place] [address] Physician Nephrology 09/02/24 Cesar Fair MD 85 [facility] [address] [place] [address] Surgery, Cardiac 11/08/24 Daisy Her, PT 85 [facility] [address] [place] [address] Vault Service MechanicVacuum Applicator Operator Medicine and Rehabilitation 11/18/24 Ena Mtz MD 132 [place] [address] Infectious Disease 04/12/25 Toni Rae MD [address] [address] Surgery, Vascular 04/12/25 System, Provider Not In [address] [address] 04/12/25 Manuel Mesa MD [address] [place] [address] Physician Surgery, Orthopedic 04/19/25 documented as of this encounter
--- OUTSIDE RECORDS SUMMARY | 2025-08-18 04:12 | XMS_ITS | Encounter Summary ---
Author Organization [employer] [facility] Address [address] [place] [address] Care Team Providers Care Molder Machine Name Role Phone Jarrett Merlos MD Primary Care Provider Unavail able Lee Fabian MD Primary Care Provider [phone] Encounter Details Date Type Department Care Team Description 12/12/2017 Hydrator Operator Report Medical Records [address] [place] [address] Charles Salazar DPM Social History Tobacco Use [...] on filedocumented in this encounter Care Teams Molder Machine Relationship Specialty Start Date End Date Jarrett Merlos MD PCP - General 06/08/01 03/22/20 Lee Fabian MD [address] [place] [address] PCP - General Internal Medicine 03/23/20 documented as of this encounter
--- OUTSIDE RECORDS SUMMARY | 2025-08-18 04:12 | XMS_ITS | Encounter Summary ---
Author Organization [facility] Address [address] [place] [address] Care Team Providers Care Associate School Psychologist Name Role Phone Jarrett Merlos MD Primary Care Provider Unavail able Lee Fabian MD Primary Care Provider [phone] Encounter Details Date Type Department Care Team Description 08/27/2017 [facility] Medical Records [address] [place] [address] Charles Onofre Social History Tobacco Use Types [...] on filedocumented in this encounter Care Teams Associate School Psychologist Relationship Specialty Start Date End Date Jarrett Merlos MD PCP - General 06/08/01 03/22/20 Lee Fabian MD [address] [place] [address] PCP - General Internal Medicine 03/23/20 documented as of this encounter
--- OUTSIDE RECORDS SUMMARY | 2025-08-18 04:12 | XMS_ITS | Encounter Summary ---
Author Organization [employer] [facility] Address [address] [place] [address] Care Team Providers Care Form Grader Name Role Phone Jarrett Merlos MD Primary Care Provider Unavail able Lee Fabian MD Primary Care Provider [phone] Encounter Details Date Type Department Care Team Description 2014 Assistant Dean Of Students Report Medical Records [address] [place] [address] Nishant Jane MD [address] [place] [address] Social History Tobacco Use Types Packs/Day Years [...] on filedocumented in this encounter Care Teams Form Grader Relationship Specialty Start Date End Date Jarrett Merlos MD PCP - General 06/08/01 03/22/20 Lee Fabian MD [address] [place] [address] PCP - General Internal Medicine 03/23/20 documented as of this encounter
--- OUTSIDE RECORDS SUMMARY | 2025-08-18 04:12 | XMS_ITS | Encounter Summary ---
Author Organization [facility] [facility] Address [address] [place] [address] Care Team Providers Care Padder Name Role Phone Lee Fabian MD Primary Care Provider [phone] Reason for Visit * Reason Onset Date Comments Medication 05/06/2022 Encounter Details Date Type Department Care Team Description 05/06/2022 Refill Gastroenterology - [place] [address] [facility] [address] [place] [address] Aron Ventura MD [address] [facility] [address] [place] [address] Medication Social History Tobacco Use Types Packs/Day [...] on filedocumented in this encounter Care Teams Padder Relationship Specialty Start Date End Date Lee Fabian MD 305 [place] [address] PCP - General Internal Medicine 03/23/20 documented as of this encounter
--- OUTSIDE RECORDS SUMMARY | 2025-08-18 04:12 | XMS_ITS | Encounter Summary ---
Author Organization [facility] Address [address] [place] [address] Care Team Providers Care Stratigraphy Teacher Name Role Phone Jarrett Merlos MD Primary Care Provider Unavail Lee Tidwell MD Primary Care Provider [phone] Encounter Details Date Type Department Care Team Description 01/11/2016 Telephone Adult Medicine [facility] [address] [place] [address] Meli Salguero PA-C Social History Tobacco Use Types Packs/Day Years Used Date Smoking Tobacco: Former Cigarettes 1 15 Q uit: 10/30/2003 Smokeless Tobacco: Never Alcohol Use Standard Drinks/Week Comments Yes 0 (1 standard drink = 0.6 oz pur e alcohol) 4-5 per week Sex Assigned at Date Recorded Not on file documented as of this encounter Miscellaneous Notes * Telephone Encounter - Meli Salguero PA-C - 01/11/2016 2:47 PM EDT Thank you for the notice. * Telephone Encounter - Sissy Bravo M.A. - 01/11/2016 2:42 PM EDT Patient saw Dr. Abreu yesterday here in office - sent to [facility] for admission for foot ulcer.gs * Telephone Encounter - Meli Salguero PA-C - 01/11/2016 12:39 PM EDT Pt agreed to return to the lab yesterday for repeat blood work. Please remind him to get his blood drawn today or tomorrow. Thanks documented in this encounter Plan of Treatment Not on file documented as of this encounter Visit Diagnoses Not on filedocumented in this encounter Care Teams Stratigraphy Teacher Relationship Specialty Start Date End Date Jarrett Merlos MD PCP - General 06/08/01 03/22/20 Lee Fabian MD [address] [place] [address] PCP - General Internal Medicine 03/23/20 documented as of this encounter
--- OUTSIDE RECORDS SUMMARY | 2025-08-18 04:12 | XMS_ITS | Encounter Summary ---
Author Organization [facility] Address [address] [place] [address] Care Team Providers Care Outbound Sales Professional Name Role Phone Jarrett Merlos MD Primary Care Provider Unavail able Lee Fabian MD Primary Care Provider [phone] Encounter Details Date Type Department Care Team Description 11/03/2014 Hospital Medical Records [address] [place] [address] Charles Belle MD [address] [place] [address] Social History Tobacco Use Types Packs/Day Years [...] on filedocumented in this encounter Care Teams Outbound Sales Professional Relationship Specialty Start Date End Date Jarrett Merlos MD PCP - General 06/08/01 03/22/20 Lee Fabian MD [address] [place] [address] PCP - General Internal Medicine 03/23/20 documented as of this encounter
--- OUTSIDE RECORDS SUMMARY | 2025-08-18 04:12 | XMS_ITS | Encounter Summary ---
Author Organization [facility] Address [address] [place] [address] Care Team Providers Care Mercury Cell Cleaner Name Role Phone Jarrett Merlos MD Primary Care Provider Unavail able Lee Fabian MD Primary Care Provider [phone] Encounter Details Date Type Department Care Team Description 11/26/2011 Release of Information Medical Records [address] [place] [address] Abstract, Provider Social History Tobacco Use Types [...] on filedocumented in this encounter Care Teams Mercury Cell Cleaner Relationship Specialty Start Date End Date Jarrett Merlos MD PCP - General 06/08/01 03/22/20 Lee Fabian MD [address] [place] [address] PCP - General Internal Medicine 03/23/20 documented as of this encounter
--- OUTSIDE RECORDS SUMMARY | 2025-08-18 04:12 | XMS_ITS | Encounter Summary ---
Author Organization [employer] Address [address] [place] [address] Care Team Providers Care Peanut Sheller Name Role Phone Jarrett Merlos MD Primary Care Provider Unavail able Lee Fabian MD Primary Care Provider [phone] Encounter Details Date Type Department Care Team Description 01/17/2012 Sales Project Manager Report Medical Records [address] [place] [address] Cisco Alexandre Social History Tobacco Use Types [...] on filedocumented in this encounter Care Teams Peanut Sheller Relationship Specialty Start Date End Date Jarrett Merlos MD PCP - General 06/08/01 03/22/20 Lee Fabian MD [address] [place] [address] PCP - General Internal Medicine 03/23/20 documented as of this encounter
--- OUTSIDE RECORDS SUMMARY | 2025-08-18 04:12 | XMS_ITS | Encounter Summary ---
Author Organization [facility] Address [address] [place] [address] Care Team Providers Care Diesel Dinkey Operator Name Role Phone Jarrett Merlos MD Primary Care Provider Unavail able Lee Fabian MD Primary Care Provider [phone] Encounter Details Date Type Department Care Team Description 11/27/2015 Incoming Correspondence Medical Records [address] [place] [address] Social History Tobacco Use Types Packs/Day Years [...] on filedocumented in this encounter Care Teams Diesel Dinkey Operator Relationship Specialty Start Date End Date Jarrett Merlos MD PCP - General 06/08/01 03/22/20 Lee Fabian MD [address] [place] [address] PCP - General Internal Medicine 03/23/20 documented as of this encounter
--- OUTSIDE RECORDS SUMMARY | 2025-08-18 04:12 | XMS_ITS | Encounter Summary ---
Author Organization [employer] [facility] Address [address] [place] [address] Care Team Providers Care Mail Handlers Supervisor Name Role Phone Jarrett Merlos MD Primary Care Provider Unavail able Lee Fabian MD Primary Care Provider [phone] Encounter Details Date Type Department Care Team Description 10/08/2011 Ehs Specialist Report Medical Records [address] [place] [address] Ton Smith MD Social History Tobacco Use [...] on filedocumented in this encounter Care Teams Mail Handlers Supervisor Relationship Specialty Start Date End Date Jarrett Merlos MD PCP - General 06/08/01 03/22/20 Lee Fabian MD [address] [place] [address] PCP - General Internal Medicine 03/23/20 documented as of this encounter
--- OUTSIDE RECORDS SUMMARY | 2025-08-18 04:12 | XMS_ITS | Encounter Summary ---
Author Organization [facility] Address [address] [place] [address] Care Team Providers Care Director Enterprise Sales Name Role Phone Jarrett Merlos MD Primary Care Provider Unavail Lee Tidwell MD Primary Care Provider [phone] Reason for Visit * Reason Onset Date Comments Testing 10/17/2011 Request for Auth orization Encounter Details Date Type Department Care Team Description 10/17/2011 Refill Adult Medicine [address] [address] Anna Richardson PA-C Testing (Request for Authorization) [...] filedocumented in this encounter Care Teams Director Enterprise Sales Relationship Specialty Start Date End Date Jarrett Merlos MD PCP - General 06/08/01 03/22/20 Lee Fabian MD [address] [place] [address] PCP - General Internal Medicine 03/23/20 documented as of this encounter
--- OUTSIDE RECORDS SUMMARY | 2025-08-18 04:12 | XMS_ITS | Encounter Summary ---
Author Organization [facility] Address [address] [place] [address] Care Team Providers Care Audograph Operator Name Role Phone Jarrett Merlos MD Primary Care Provider Unavail able Lee Fabian MD Primary Care Provider [phone] Encounter Details Date Type Department Care Team Description 08/16/2011 Kennel Manager Dog Track Report Medical Records [address] [place] [address] Cisco Alexandre Social History Tobacco Use Types [...] on filedocumented in this encounter Care Teams Audograph Operator Relationship Specialty Start Date End Date Jarrett Merlos MD PCP - General 06/08/01 03/22/20 Lee Fabian MD [address] [place] [address] PCP - General Internal Medicine 03/23/20 documented as of this encounter
--- OUTSIDE RECORDS SUMMARY | 2025-08-18 04:13 | XMS_ITS | Clinical Summary ---
Author Organization [facility] Address [address] [facility] [address] [phone] Phone Care Team Providers Care Merchandise Planning Manager Name Role Phone Lee Fabian MD Primary Care Provider [phone] Allergies Active Allergy Reactions Criticality Noted Date [...] 04/14/2024 Diabetes mellitus 01/18/2011 Hypertension 01/18/2011 Immunizations Immunization Administration Dates Next Due Influenza [...] Care Team (Late st Contact Info) Description 11/21/2025 10:45 AM EST Office Visit [facility] [address] [facility] [address] [place] [address] Marlin Zarate ARNP [address] [facility] [address] [place] [address] Health Maintenance Due Date Last Done [...] 07/18/2022, Additional history exists Diabetes: Hemoglobin A1C 09/01/2025 025, 06/02/2025, 04/22/2025, Additional history exists Pneumococcal Vaccine: Peds (0 to 5 Years) and At-Risk Patients (6 to 49 Years) Discontinued 01/05/2017, 11/11/2015 Hepatitis B Vaccine Aged Out No longe r eligible based on patient's age to complete this topic Insurance [employer]na MCR Adv PPO ([id number]) A[employer]na MCR Adv PPO ([id number]) Care Teams Merchandise Planning Manager Relationship Specialty Start Date End Date Lee Fabian MD PCP - General Internal Medicine 01/21/24
--- OUTSIDE RECORDS SUMMARY | 2025-08-18 04:13 | XMS_ITS | Encounter Summary ---
Author Organization [employer] [facility] Address [address] [place] [address] Care Team Providers Care Patrol Officer Name Role Phone Jarrett Merlos MD Primary Care Provider Unavail able Lee Fabian MD Primary Care Provider [phone] Encounter Details Date Type Department Care Team Description 01/18/2016 Sanitation Manager Report Medical Records [address] [place] [address] Sage Rose MD Social History Tobacco Use [...] on filedocumented in this encounter Care Teams Patrol Officer Relationship Specialty Start Date End Date Jarrett Merlos MD PCP - General 06/08/01 03/22/20 Lee Fabian MD [address] [place] [address] PCP - General Internal Medicine 03/23/20 documented as of this encounter
--- OUTSIDE RECORDS SUMMARY | 2025-08-18 04:13 | XMS_ITS | Encounter Summary ---
Author Organization [facility] Address [address] [place] [address] Care Team Providers Care Internal Combustion Engineer Name Role Phone Jarrett Merlos MD Primary Care Provider Unavail able Lee Fabian MD Primary Care Provider [phone] Encounter Details Date Type Department Care Team Description 11/13/2017 Hospital Medical Records [address] [place] [address] Social History Tobacco Use Types Packs/Day Years [...] on filedocumented in this encounter Care Teams Internal Combustion Engineer Relationship Specialty Start Date End Date Jarrett Merlos MD PCP - General 06/08/01 03/22/20 Lee Fabian MD [address] [place] [address] PCP - General Internal Medicine 03/23/20 documented as of this encounter
--- OUTSIDE RECORDS SUMMARY | 2025-08-18 04:13 | XMS_ITS | Encounter Summary ---
Author Organization [facility] Address [address] [place] [address] Care Team Providers Care Contact Worker Name Role Phone Jarrett Merlos MD Primary Care Provider [facility] Lee Tidwell MD Primary Care Provider [phone] Reason for Visit * Reason Onset Date Comments Faxed Order 11/05/2017 Encounter Details Date Type Department Care Team Description 11/05/2017 Telephone Adult Medicine [address] [address] Jarrett Merlos MD Faxed Order Social History [...] Christen Shukla - 11/05/2017 9:34 AM EST [facility] sent orders to be reviewed, signed and faxed back to [phone] Orders to be placed in dr Merlos's bin on a-side documented in this encounter Plan of Treatment Not on file documented as of this encounter Visit Diagnoses Not on filedocumented in this encounter Care Teams Contact Worker Relationship Specialty Start Date End Date Jarrett Merlos MD PCP - General 06/08/01 03/22/20 Lee Fabian MD [address] [place] [address] PCP - General Internal Medicine 03/23/20 documented as of this encounter
--- OUTSIDE RECORDS SUMMARY | 2025-08-18 04:13 | XMS_ITS | Encounter Summary ---
Author Organization [facility] Address [address] [place] [address] Care Team Providers Care Sustainability Engineer Name Role Phone Jarrett Merlos MD Primary Care Provider Unavail able Lee Fabian MD Primary Care Provider [phone] Encounter Details Date Type Department Care Team Description 04/16/2016 Liquid Hydrogen Plant Operator Report Medical Records [address] [place] [address] Nichelle Duckworth Social History Tobacco Use Types [...] on filedocumented in this encounter Care Teams Sustainability Engineer Relationship Specialty Start Date End Date Jarrett Merlos MD PCP - General 06/08/01 03/22/20 Lee Fabian MD [address] [place] [address] PCP - General Internal Medicine 03/23/20 documented as of this encounter
--- OUTSIDE RECORDS SUMMARY | 2025-08-18 04:13 | XMS_ITS | Encounter Summary ---
Author Organization [facility] [employer] [facility] Address [address] [place] [address] Care Team Providers Care Teacher Cclc Name Role Phone Jarrett Merlos MD Primary Care Provider Unavail able Lee Fabian MD Primary Care Provider [phone] Encounter Details Date Type Department Care Team Description 03/13/2018 Compliance Aide Report Medical Records [address] [place] [address] Guy Trejo MD Social History Tobacco Use [...] on filedocumented in this encounter Care Teams Teacher Cclc Relationship Specialty Start Date End Date Jarrett Merlos MD PCP - General 06/08/01 03/22/20 Lee Fabian MD [address] [place] [address] PCP - General Internal Medicine 03/23/20 documented as of this encounter
--- OUTSIDE RECORDS SUMMARY | 2025-08-18 04:13 | XMS_ITS | Encounter Summary ---
Author Organization [facility] [employer] [facility] Address [address] [place] [address] Care Team Providers Care Research Program Assistant Name Role Phone Jarrett Merlos MD Primary Care Provider Unavail able Lee Fabian MD Primary Care Provider [phone] Encounter Details Date Type Department Care Team Description 11/28/2017 Director Loan Report Medical Records [address] [place] [address] Guy Trejo MD Social History Tobacco Use [...] filedocumented in this encounter Care Teams Research Program Assistant Relationship Specialty Start Date End Date Jarrett Merlos MD PCP - General 06/08/01 03/22/20 Lee Fabian MD [address] [place] [address] PCP - General Internal Medicine 03/23/20 documented as of this encounter
--- OUTSIDE RECORDS SUMMARY | 2025-08-18 04:13 | XMS_ITS | Encounter Summary ---
Author Organization [facility] Address [address] [place] [address] Care Team Providers Care Athletic Team Physician Name Role Phone Jarrett Merlos MD Primary Care Provider Unavail able Lee Fabian MD Primary Care Provider [phone] Encounter Details Date Type Department Care Team Description 12/05/2017 Registrar Museum Report Medical Records [address] [place] [address] Charles Salazar DPM Social History Tobacco Use [...] on filedocumented in this encounter Care Teams Athletic Team Physician Relationship Specialty Start Date End Date Jarrett Merlos MD PCP - General 06/08/01 03/22/20 Lee Fabian MD [address] [place] [address] PCP - General Internal Medicine 03/23/20 documented as of this encounter
--- OUTSIDE RECORDS SUMMARY | 2025-08-18 04:13 | XMS_ITS | Encounter Summary ---
Author Organization [facility] Address [address] [place] [address] Care Team Providers Care Research Software Engineer Name Role Phone Lee Fabian MD Primary Care Provider [phone] Encounter Details Date Type Department Care Team Description 09/18/2022 Recreational Facilities Motel Manager Report Medical Records [address] [place] [address] Vitaliy Fields MD Social History Tobacco Use [...] filedocumented in this encounter Care Teams Research Software Engineer Relationship Specialty Start Date End Date Lee Fabian MD [address] [place], [place] [id number] PCP - General Internal Medicine 03/23/20 documented as of this encounter
--- OUTSIDE RECORDS SUMMARY | 2025-08-18 04:13 | XMS_ITS | Encounter Summary ---
Author Organization [facility] Address [address] [place] [address] Care Team Providers Care Bounty Hunter Name Role Phone Jarrett Merlos MD Primary Care Provider Unavail able Lee Fabian MD Primary Care Provider [phone] Encounter Details Date Type Department Care Team Description 09/19/2016 [facility] Medical Records [address] [place] [address] Abstract, Provider Social History Tobacco Use Types [...] on filedocumented in this encounter Care Teams Bounty Hunter Relationship Specialty Start Date End Date Jarrett Merlos MD PCP - General 06/08/01 03/22/20 Lee Fabian MD [address] [place] [address] PCP - General Internal Medicine 03/23/20 documented as of this encounter
--- OUTSIDE RECORDS SUMMARY | 2025-08-18 04:13 | XMS_ITS | Encounter Summary ---
Author Organization [facility] Address [address] [place] [address] Care Team Providers Care Inspecting And Testing Lead Hand Name Role Phone Lee Fabian MD Primary Care Provider [phone] Reason for Visit * Reason Onset Date Comments Patient Outreach 11/11/2023 Encounter Details Date Type Department Care Team Description 11/11/2023 Telephone Respiratory and Diabetes Medicaid/ACO Pharmacist [address] [place], [place] [id number] Jemma Da Silva Pharm.D [address] [place] [address] Patient Outreach Social History Tobacco Use Types Packs/Day Years Used Date Smoking Tobacco: Former Cigarettes 1 15 Q uit: 10/30/2003 Smokeless Tobacco: Never Alcohol Use Standard Drinks/Week Comments Yes 12 (1 standard drink = 0.6 oz pu re alcohol) 12 pack Sex Assigned at Date Recorded Not on file documented as of this encounter Miscellaneous Notes * Telephone Encounter - Jemma Da Silva Pharm.D - 11/11/2023 11:46 AM EST Received referral from Isabell Amos for CGM. I've worked with this patient in the past. Called patient to inquire about his thoughts on CGM. Patient would like one but not sure he can afford it. Patient does have a Medicare Advantage plan. [place] in [place] as patient has smart phone and will use that as reader. If not covered, we can try anf see if it will be at DME but patient is not on insulin so may not be covered. He cannot afford vega fitzgerald. Patient states his sugars are high d/t infection and not eating well. Worried about taking glipizide as he finds he fears the low but never has had one. Will only take glipizide if morning reading is>135 but he often forgets to take his sugar. He may take glipizide 3-4 x a week. We will also see about trulicity if it is affordable. Patient does not believe metformin is doing anything for him right now. Patient will call me back once he gets prices from pharmacy to see if they are affordable. Will enroll in pharmacy clinic. documented in this encounter Plan of Treatment Not on file documented as of this encounter Visit Diagnoses Not on filedocumented in this encounter Care Teams Inspecting And Testing Lead Hand Relationship Specialty Start Date End Date Lee Fabian MD [address] [place] [address] PCP - General Internal Medicine 03/23/20 documented as of this encounter
--- OUTSIDE RECORDS SUMMARY | 2025-08-18 04:13 | XMS_ITS | Encounter Summary ---
Author Organization [facility] Address [address] [place] [address] Care Team Providers Care Commercial Artist Name Role Phone Lee Fabian MD Primary Care Provider [phone] Reason for Visit * Reason Onset Date Comments Care Management 01/28/2024 Encounter Details Date Type Department Care Team Description 01/28/2024 Telephone Adult Medicine [address] [address] Lee Fabian MD [address] [place] [address] Care Management Social History Tobacco Use Types [...] no PCP appt scheduled. Tonya Martinez RN investment recovery technician [facility] PH: Hours: M-F 7:30a-4p. documented in this encounter Plan of Treatment Not on file documented as of this encounter Visit Diagnoses Not on filedocumented in this encounter Care Teams Commercial Artist Relationship Specialty Start Date End Date Lee Fabian MD [address] [place] [address] PCP - General Internal Medicine 03/23/20 documented as of this encounter
--- OUTSIDE RECORDS SUMMARY | 2025-08-18 04:13 | XMS_ITS | Encounter Summary ---
Author Organization [facility] Address [address] [place] [address] Care Team Providers Care Loader Engineer Name Role Phone Jarrett Merlos MD Primary Care Provider Unavail able Lee Fabian MD Primary Care Provider [phone] Encounter Details Date Type Department Care Team Description 06/06/2018 [facility] Medical Records [address] [place] [address] Jarrett Merlos MD Social History Tobacco Use Types Packs/Day [...] on filedocumented in this encounter Care Teams Loader Engineer Relationship Specialty Start Date End Date Jarrett Merlos MD PCP - General 06/08/01 03/22/20 Lee Fabian MD [address] [place] [address] PCP - General Internal Medicine 03/23/20 documented as of this encounter
--- OUTSIDE RECORDS SUMMARY | 2025-08-18 04:13 | XMS_ITS | Encounter Summary ---
Author Organization [facility] [employer] [facility] Address [address] [place] [address] Care Team Providers Care Film Washer Name Role Phone Jarrett Merlos MD Primary Care Provider Unavail able Lee Fabian MD Primary Care Provider [phone] Encounter Details Date Type Department Care Team Description 08/30/2010 Flying Teacher Report Medical Records [address] [place] [address] Cami Gutierrez NP Social History Tobacco Use Types Packs/Day [...] on filedocumented in this encounter Care Teams Film Washer Relationship Specialty Start Date End Date Jarrett Merlos MD PCP - General 06/08/01 03/22/20 Lee Fabian MD [address] [place] [address] PCP - General Internal Medicine 03/23/20 documented as of this encounter
--- OUTSIDE RECORDS SUMMARY | 2025-08-18 04:13 | XMS_ITS | Encounter Summary ---
Author Organization [employer] [facility] Address [address] [place] [address] Care Team Providers Care All Around Gear Machine Operator Name Role Phone Jarrett Merlos MD Primary Care Provider Unavail able Lee Fabian MD Primary Care Provider [phone] Encounter Details Date Type Department Care Team Description 02/15/2018 [facility] Medical Records [address] [place] [address] Abstract, Provider Social History Tobacco Use Types [...] on filedocumented in this encounter Care Teams All Around Gear Machine Operator Relationship Specialty Start Date End Date Jarrett Merlos MD PCP - General 06/08/01 03/22/20 Lee Fabian MD [address] [place] [address] PCP - General Internal Medicine 03/23/20 documented as of this encounter
--- OUTSIDE RECORDS SUMMARY | 2025-08-18 04:13 | XMS_ITS | Encounter Summary ---
Author Organization [facility] [facility] Address [address] [place] [address] Care Team Providers Care Grain Combiner Name Role Phone Jarrett Merlos MD Primary Care Provider Unavail able Lee Fabian MD Primary Care Provider [phone] Encounter Details Date Type Department Care Team Description 10/24/2017 Senior Engineering Specialist Report Medical Records [address] [place] [address] Charles Salazar DPM Social History Tobacco Use [...] on filedocumented in this encounter Care Teams Grain Combiner Relationship Specialty Start Date End Date Jarrett Merlos MD PCP - General 06/08/01 03/22/20 Lee Fabian MD [address] [place] [address] PCP - General Internal Medicine 03/23/20 documented as of this encounter
--- OUTSIDE RECORDS SUMMARY | 2025-08-18 04:13 | XMS_ITS | Encounter Summary ---
Author Organization [facility] Address [address] [place] [address] Care Team Providers Care Channeler Runner Name Role Phone Jarrett Merlos MD Primary Care Provider Unavail able Lee Fabian MD Primary Care Provider Encounter Details Date Type Department Care Team Description 01/30/2016 [facility] Medical Records [address] [place] [address] Social History Tobacco Use Types Packs/Day Years [...] on filedocumented in this encounter Care Teams Channeler Runner Relationship Specialty Start Date End Date Jarrett Merlos MD PCP - General 06/08/01 03/22/20 Lee Fabian MD [address] [place] [address] PCP - General Internal Medicine 03/23/20 documented as of this encounter
--- OUTSIDE RECORDS SUMMARY | 2025-08-18 04:13 | XMS_ITS | Encounter Summary ---
Author Organization [facility] Address [address] [place] [address] Care Team Providers Care Crane Service Technician Name Role Phone Lee Fabian MD Primary Care Provider [phone] Encounter Details Date Type Department Care Team Description 12/08/2023 Tapper Helper Report Medical Records [address] [place] [address] Binta Arellano FNP Social History Tobacco Use Types Packs/Day Years [...] on filedocumented in this encounter Care Teams Crane Service Technician Relationship Specialty Start Date End Date Lee Fabian MD [address] [place] [address] [id number] PCP - General Internal Medicine 03/23/20 documented as of this encounter
--- OUTSIDE RECORDS SUMMARY | 2025-08-18 04:13 | XMS_ITS | Encounter Summary ---
Author Organization [facility] Address [address] [place] [address] Care Team Providers Care Group Cio Name Role Phone Jarrett Merlos MD Primary Care Provider Unavail able Lee Fabian MD Primary Care Provider [phone] Encounter Details Date Type Department Care Team Description 05/10/2016 [facility] Medical Records [address] [place] [address] Dallas Camejo Social History Tobacco Use Types [...] on filedocumented in this encounter Care Teams Group Cio Relationship Specialty Start Date End Date Jarrett Merlos MD PCP - General 06/08/01 03/22/20 Lee Fabian MD [address] [place] [phone] PCP - General Internal Medicine 03/23/20 documented as of this encounter
--- OUTSIDE RECORDS SUMMARY | 2025-08-18 04:13 | XMS_ITS | Encounter Summary ---
Author Organization [facility] Address [address] [place] [address] Care Team Providers Care Grain Oilseed Or Pasture Farm Worker Name Role Phone Jarrett Merlos MD Primary Care Provider Unavail able Lee Fabian MD Primary Care Provider [phone] Encounter Details Date Type Department Care Team Description 11/10/2017 [facility] Medical Records [address] [place] [address] Abstract, Provider Social History Tobacco Use Types [...] filedocumented in this encounter Care Teams Grain Oilseed Or Pasture Farm Worker Relationship Specialty Start Date End Date Jarrett Merlos MD PCP - General 06/08/01 03/22/20 Lee Fabian MD [address] [place] [address] PCP - General Internal Medicine 03/23/20 documented as of this encounter
--- OUTSIDE RECORDS SUMMARY | 2025-08-18 04:13 | XMS_ITS | Encounter Summary ---
Author Organization [facility] Address [address] [place] [address] Care Team Providers Care Progress Developer Name Role Phone Lee Fabian MD Primary Care Provider [phone] Reason for Visit * Reason Onset Date Comments Faxed Order 08/18/2023 [facility] re Physicians Order Encounter Details Date Type Department Care Team Description 08/18/2023 Telephone Adult Medicine [address] [address] Lee Fabian MD [address] [place] [phone] Faxed Order ([facility] Order ) Social History Tobacco Use [...] AM EST Faxed order received from [facility] Order. Orders placed in Dr. Caren cummins. Please sign and return when completed to . documented in this encounter Plan of Treatment Not on file documented as of this encounter Visit Diagnoses Not on filedocumented in this encounter Care Teams Progress Developer Relationship Specialty Start Date End Date Lee Fabian MD [address] [place] [address] PCP - General Internal Medicine 03/23/20 documented as of this encounter
--- OUTSIDE RECORDS SUMMARY | 2025-08-18 04:13 | XMS_ITS | Encounter Summary ---
Author Organization [facility] Address [address] [place] [address] Care Team Providers Care Assurance Sourcing Manager Name Role Phone Jarrett Merlos MD Primary Care Provider Unavail able Lee Fabian MD Primary Care Provider [phone] Encounter Details Date Type Department Care Team Description 04/26/2016 Lumber Cutter Report Medical Records [address] [place] [address] Abstract, Provider Social History Tobacco Use Types [...] on filedocumented in this encounter Care Teams Assurance Sourcing Manager Relationship Specialty Start Date End Date Jarrett Merlos MD PCP - General 06/08/01 03/22/20 Lee Fabian MD [address] [place] [phone] PCP - General Internal Medicine 03/23/20 documented as of this encounter
--- OUTSIDE RECORDS SUMMARY | 2025-08-18 04:13 | XMS_ITS | Encounter Summary ---
Author Organization [facility] Address [address] [place] [address] Care Team Providers Care Teaching Manager Name Role Phone Jarrett Merlos MD Primary Care Provider Unavail Lee Tidwell MD Primary Care Provider [phone] Reason for Visit * Reason Onset Date Comments REFERRAL 02/17/2014 Encounter Details Date Type Department Care Team Description 02/17/2014 Telephone Podiatry - [address] [address] Filippo Gagnon, RILEY REFERRAL Social History Tobacco [...] on filedocumented in this encounter Care Teams Teaching Manager Relationship Specialty Start Date End Date Jarrett Merlos MD PCP - General 06/08/01 03/22/20 Lee Fabian MD [address] [place] [address] PCP - General Internal Medicine 03/23/20 documented as of this encounter
--- OUTSIDE RECORDS SUMMARY | 2025-08-18 04:13 | XMS_ITS | Encounter Summary ---
Author Organization [facility] Address [address] [place] [address] Care Team Providers Care Computer Software Engineer Name Role Phone Jarrett Merlos MD Primary Care Provider Unavail able Lee Fabian MD Primary Care Provider [phone] Encounter Details Date Type Department Care Team Description 01/26/2016 [facility] Medical Records [address] [place] [address] Dallas Camejo Social History Tobacco Use Types [...] on filedocumented in this encounter Care Teams Computer Software Engineer Relationship Specialty Start Date End Date Jarrett Merlos MD PCP - General 06/08/01 03/22/20 Lee Fabian MD [address] [place] [address] PCP - General Internal Medicine 03/23/20 documented as of this encounter
--- OUTSIDE RECORDS SUMMARY | 2025-08-18 04:13 | XMS_ITS | Encounter Summary ---
Author Organization [facility] Address [address] [place] [address] Care Team Providers Care Artist Blacksmith Name Role Phone Jarrett Merlos MD Primary Care Provider Unavail able Lee Fabian MD Primary Care Provider [phone] Encounter Details Date Type Department Care Team Description 05/22/2018 [facility] Medical Records [address] [place] [address] Abstract, Provider Social History Tobacco Use Types [...] on filedocumented in this encounter Care Teams Artist Blacksmith Relationship Specialty Start Date End Date Jarrett Merlos MD PCP - General 06/08/01 03/22/20 Lee Fabian MD [address] [place] [address] PCP - General Internal Medicine 03/23/20 documented as of this encounter
--- OUTSIDE RECORDS SUMMARY | 2025-08-18 04:13 | XMS_ITS | Encounter Summary ---
Author Organization [employer] [facility] Address [address] [place] [address] Care Team Providers Care Vice President Mission Integration Name Role Phone Jarrett Merlos MD Primary Care Provider Unavail able Lee Fabian MD Primary Care Provider [phone] Encounter Details Date Type Department Care Team Description 05/03/2016 Block Breaker Report Medical Records [address] [place] [address] Sage Rose MD Social History Tobacco Use [...] on filedocumented in this encounter Care Teams Vice President Mission Integration Relationship Specialty Start Date End Date Jarrett Merlos MD PCP - General 06/08/01 03/22/20 Lee Fabian MD [address] [place] [phone] PCP - General Internal Medicine 03/23/20 documented as of this encounter
--- OUTSIDE RECORDS SUMMARY | 2025-08-18 04:13 | XMS_ITS | Encounter Summary ---
Author Organization [facility] Address [address] [place] [address] Care Team Providers Care Equipment Operator Wage Hand Name Role Phone Lee Fabian MD Primary Care Provider [phone] Reason for Visit * Reason Onset Date Comments Medication 04/28/2023 Encounter Details Date Type Department Care Team Description 04/28/2023 Refill Gastroenterology - [place] [address] [facility] [address] [place] [address] Aron Ventura MD [address] [facility] [address] [place] [address] Medication Social History Tobacco Use Types Packs/Day [...] on filedocumented in this encounter Care Teams Equipment Operator Wage Hand Relationship Specialty Start Date End Date Lee Fabian MD [address] [place] [address] PCP - General Internal Medicine 03/23/20 documented as of this encounter
--- OUTSIDE RECORDS SUMMARY | 2025-08-18 04:13 | XMS_ITS | Encounter Summary ---
Author Organization [employer] [facility] Address [address] [place] [address] Care Team Providers Care Labor Relations Teacher Name Role Phone Lee Fabian MD Primary Care Provider [phone] Encounter Details Date Type Department Care Team Description 08/01/2023 [place] Application Tester Report Medical Records [address] [place], [place] [address] [place] [address] Orthopedic, Surgeons Social History Tobacco Use Types [...] on filedocumented in this encounter Care Teams Labor Relations Teacher Relationship Specialty Start Date End Date Lee Fabian MD [address] [place] [address] PCP - General Internal Medicine 03/23/20 documented as of this encounter
--- OUTSIDE RECORDS SUMMARY | 2025-08-18 04:13 | XMS_ITS | Encounter Summary ---
Author Organization [facility] Address [address] [place] [address] Care Team Providers Care Queen Producer Name Role Phone Jarrett Merlos MD Primary Care Provider Unavail able Lee Fabian MD Primary Care Provider [phone] Encounter Details Date Type Department Care Team Description 04/02/2018 Orders Only Medical Records [address] [place] [address] Jarrett Merlos MD Social History Tobacco Use [...] Name Priority Date/Time Associated Diagnosis Comments OUTSIDE SLEEP STUDY Routine 03/24/2018 documented in this encounter Results * OUTSIDE SLEEP STUDY (03/24/2018) Anias Laurel Parry FNP - 03/24/2018 Repeat study due to inadequate data. SMS contacting patient to repeat. Jarrett Merlos MD PULMONOLOGY documented in this encounter Visit Diagnoses Not on filedocumented in this encounter Care Teams Queen Producer Relationship Specialty Start Date End Date Jarrett Merlos MD PCP - General 06/08/01 03/22/20 Lee Fabian MD [address] [place] [address] PCP - General Internal Medicine 03/23/20 documented as of this encounter
--- OUTSIDE RECORDS SUMMARY | 2025-08-18 04:13 | XMS_ITS | Clinical Summary ---
Author Organization [facility] Address [address] [facility] [address] [place] [address] Phone Care Team Providers Care Machine Applicator Cementer Name Role Phone Pcp, Unknown Primary Care [...] Payer (Ef fective 2018-Present) Name:Sebastien Luca Member ID:[id number] Relation to Subscriber:Self Name:Angeles Crowen Subscriber ID:[id number] Payer ID:[id number] Group ID:Not on file Type:Medicare Address: [facility] [address] [place] [id number] [employer] CROSS MEDEX SUPPLEMENT MEDICARE PART A & B [employer] MEDEX SUPPLEMENT MEDICARE PART A & B [employer] MEDEX SUPPLEMENT MEDICARE PART A & B [employer] MEDEX SUPPLEMENT MEDICARE PART A & B [employer] MEDEX SUPPLEMENT MEDICARE PART A & B [employer] MEDEX SUPPLEMENT MEDICARE PART A & B [employer] MEDEX SUPPLEMENT MEDICARE PART A & B [employer] MEDEX SUPPLEMENT MEDICARE PART A & B [employer] MEDEX SUPPLEMENT MEDICARE PART A & B [employer] MEDEX SUPPLEMENT Care Teams Machine Applicator Cementer Relationship Specialty Start Date End Date Pcp, Unknown PCP - General 04/09/20 Additional Source Comments The information contained in this document represents components of the legal health record. It is not the complete legal health record.[facility]
--- OUTSIDE RECORDS SUMMARY | 2025-08-18 04:13 | XMS_ITS | Encounter Summary ---
Author Organization [facility] Address [address] [place] [address] Care Team Providers Care Violin Repairer Name Role Phone Jarrett Merlos MD Primary Care Provider Unavail able Lee Fabian MD Primary Care Provider [phone] Encounter Details Date Type Department Care Team Description 11/12/2016 Recorder Gravity Prospecting Report Medical Records [address] [place] [address] Danyel Mon MD Social History Tobacco Use Types Packs/Day [...] on filedocumented in this encounter Care Teams Violin Repairer Relationship Specialty Start Date End Date Jarrett Merlos MD PCP - General 06/08/01 03/22/20 Lee Fabian MD [address] [place] [address] PCP - General Internal Medicine 03/23/20 documented as of this encounter
--- OUTSIDE RECORDS SUMMARY | 2025-08-18 04:13 | XMS_ITS | Encounter Summary ---
Author Organization [facility] [employer] [facility] Address [address] [place] [address] Care Team Providers Care Tripoler Name Role Phone Lee Fabian MD Primary Care Provider [phone] Encounter Details Date Type Department Care Team Description 07/08/2023 Retail Account Executive Report Medical Records [address] [place] [address] [address] [place] [address] Social History Tobacco Use Types Packs/Day Years [...] on filedocumented in this encounter Care Teams Tripoler Relationship Specialty Start Date End Date Lee Fabian MD [address] [place] [address] [phone] PCP - General Internal Medicine 03/23/20 documented as of this encounter
--- OUTSIDE RECORDS SUMMARY | 2025-08-18 04:13 | XMS_ITS | Encounter Summary ---
Author Organization [facility] Address [address] [place] [address] Care Team Providers Care Sand Wheeler Name Role Phone Jarrett Merlos MD Primary Care Provider Unavail able Lee Fabian MD Primary Care Provider [phone] Encounter Details Date Type Department Care Team Description 05/13/2016 [facility] Medical Records [address] [place] [address] Eunice Mon PA-C Social History Tobacco Use Types Packs/Day [...] filedocumented in this encounter Care Teams Sand Wheeler Relationship Specialty Start Date End Date Jarrett Merlos MD PCP - General 06/08/01 03/22/20 Lee Fabian MD [address] [place] [address] PCP - General Internal Medicine 03/23/20 documented as of this encounter
--- OUTSIDE RECORDS SUMMARY | 2025-08-18 04:13 | XMS_ITS | Encounter Summary ---
Author Organization [facility] Address [address] [place] [address] Care Team Providers Care Block Layer Name Role Phone Jarrett Merlos MD Primary Care Provider Unavail able Lee Fabian MD Primary Care Provider [phone] Encounter Details Date Type Department Care Team Description 06/07/2018 [facility] Medical Records [address] [place] [address] Nani Holder Social History Tobacco Use Types [...] on filedocumented in this encounter Care Teams Block Layer Relationship Specialty Start Date End Date Jarrett Merlos MD PCP - General 06/08/01 03/22/20 Lee Fabian MD [address] [place] [phone] PCP - General Internal Medicine 03/23/20 documented as of this encounter
--- OUTSIDE RECORDS SUMMARY | 2025-08-18 04:13 | XMS_ITS | Encounter Summary ---
Author Organization [employer] [facility] Address [address] [place] [address] Care Team Providers Care Flat Surfacer Name Role Phone Jarrett Merlos MD Primary Care Provider Unavail able Lee Fabian MD Primary Care Provider [phone] Encounter Details Date Type Department Care Team Description 03/11/2018 [facility] Medical Records [address] [place] [address] Abstract, Provider Social History Tobacco Use Types [...] on filedocumented in this encounter Care Teams Flat Surfacer Relationship Specialty Start Date End Date Jarrett Merlos MD PCP - General 06/08/01 03/22/20 Lee Fabian MD [address] [place] [address] PCP - General Internal Medicine 03/23/20 documented as of this encounter
--- OUTSIDE RECORDS SUMMARY | 2025-08-18 04:13 | XMS_ITS | Encounter Summary ---
Author Organization [facility] Address [address] [place] [address] Care Team Providers Care Used Car Make Ready Worker Name Role Phone Jarrett Merlos MD Primary Care Provider [facility] Lee Tidwell MD Primary Care Provider [phone] Reason for Visit * Reason Onset Date Comments Faxed Order 11/05/2017 Encounter Details Date Type Department Care Team Description 11/05/2017 Telephone Adult Medicine [address] [address] Jarrett Merlos MD Faxed Order Social History [...] Christen Shukla - 11/05/2017 9:23 AM EST [facility] sent orders to be reviewed, signed and faxed to [phone] Merlos's bin on a-side documented in this encounter Plan of Treatment Not on file documented as of this encounter Visit Diagnoses Not on filedocumented in this encounter Care Teams Used Car Make Ready Worker Relationship Specialty Start Date End Date Jarrett Merlos MD PCP - General 06/08/01 03/22/20 Lee Fabian MD [address] [place] [address] PCP - General Internal Medicine 03/23/20 documented as of this encounter
--- OUTSIDE RECORDS SUMMARY | 2025-08-18 04:13 | XMS_ITS | Encounter Summary ---
Author Organization [employer] [facility] Address [address] [place] [address] Care Team Providers Care Image Scientist Name Role Phone Jarrett Merlos MD Primary Care Provider Unavail able Lee Fabian MD Primary Care Provider [phone] Encounter Details Date Type Department Care Team Description 04/23/2016 Librarian Special Collections Report Medical Records [address] [place] [address] Awilda Mccabe Social History Tobacco Use Types [...] on filedocumented in this encounter Care Teams Image Scientist Relationship Specialty Start Date End Date Jarrett Merlos MD PCP - General 06/08/01 03/22/20 Lee Fabian MD [address] [place] [address] PCP - General Internal Medicine 03/23/20 documented as of this encounter
--- OUTSIDE RECORDS SUMMARY | 2025-08-18 04:13 | XMS_ITS | Encounter Summary ---
Author Organization [facility] [employer] [facility] Address [address] [place] [address] Care Team Providers Care Police Clerk Name Role Phone Jarrett Merlos MD Primary Care Provider Unavail able Lee Fabian MD Primary Care Provider [phone] Encounter Details Date Type Department Care Team Description 01/28/2018 Time Clock Repairer Report Medical Records [address] [place] [address] Guy Trejo MD Social History Tobacco Use [...] on filedocumented in this encounter Care Teams Police Clerk Relationship Specialty Start Date End Date Jarrett Merlos MD PCP - General 06/08/01 03/22/20 Lee Fabian MD [address] [place] [address] PCP - General Internal Medicine 03/23/20 documented as of this encounter
--- OUTSIDE RECORDS SUMMARY | 2025-08-18 04:13 | XMS_ITS | Encounter Summary ---
Author Organization [facility] Address [address] [place] [address] Care Team Providers Care Client Delivery Manager Name Role Phone Jarrett Merlos MD Primary Care Provider Unavail able Lee Fabian MD Primary Care Provider [phone] Encounter Details Date Type Department Care Team Description 05/10/2016 [facility] Medical Records [address] [place] [address] Shaggy Wong Social History Tobacco Use Types Packs/Day Years [...] filedocumented in this encounter Care Teams Client Delivery Manager Relationship Specialty Start Date End Date Jarrett Merlos MD PCP - General 06/08/01 03/22/20 Lee Fabian MD [address] [place] [address] PCP - General Internal Medicine 03/23/20 documented as of this encounter
--- OUTSIDE RECORDS SUMMARY | 2025-08-18 04:13 | XMS_ITS | Encounter Summary ---
Author Organization [facility] Address [address] [place] [address] Care Team Providers Care Endocrinology Teacher Name Role Phone Jarrett Merlos MD Primary Care Provider Unavail able Lee Fabian MD Primary Care Provider [phone] Encounter Details Date Type Department Care Team Description 04/15/2016 Land Leveler Report Medical Records [address] [place] [address] Nichelle Duckworth Social History Tobacco Use Types [...] on filedocumented in this encounter Care Teams Endocrinology Teacher Relationship Specialty Start Date End Date Jarrett Merlos MD PCP - General 06/08/01 03/22/20 Lee Fabian MD [address] [place] [address] PCP - General Internal Medicine 03/23/20 documented as of this encounter
--- OUTSIDE RECORDS SUMMARY | 2025-08-18 04:13 | XMS_ITS | Encounter Summary ---
Author Organization [facility] [employer] [facility] Address [address] [place] [address] Care Team Providers Care Photolith Operator Name Role Phone Jarrett Merlos MD Primary Care Provider Unavail able Lee Fabian MD Primary Care Provider [phone] Encounter Details Date Type Department Care Team Description 02/15/2018 Hospital Medical Records [address] [place] [address] Aron Ventura MD [address] [facility] [address] [place] [address] Social History Tobacco Use Types Packs/Day Years [...] on filedocumented in this encounter Care Teams Photolith Operator Relationship Specialty Start Date End Date Jarrett Merlos MD PCP - General 06/08/01 03/22/20 Lee Fabian MD [address] [place] [address] PCP - General Internal Medicine 03/23/20 documented as of this encounter
--- OUTSIDE RECORDS SUMMARY | 2025-08-18 04:13 | XMS_ITS | Encounter Summary ---
Author Organization [employer] [facility] Address [address] [place] [address] Care Team Providers Care Ski Technician Name Role Phone Jarrett Merlos MD Primary Care Provider Unavail able Lee Fabian MD Primary Care Provider Encounter Details Date Type Department Care Team Description 03/06/2016 Communications Engineer Report Medical Records [address] [place] [id number] [place] [address] Social History Tobacco Use Types Packs/Day Years [...] on filedocumented in this encounter Care Teams Ski Technician Relationship Specialty Start Date End Date Jarrett Merlos MD PCP - General 06/08/01 03/22/20 Lee Fabian MD [address] [place] [address] PCP - General Internal Medicine 03/23/20 documented as of this encounter
--- OUTSIDE RECORDS SUMMARY | 2025-08-18 04:13 | XMS_ITS | Encounter Summary ---
Author Organization [facility] Address [address] [place] [address] Care Team Providers Care Fueler Name Role Phone Jarrett Merlos MD Primary Care Provider Unavail able Lee Fabian MD Primary Care Provider [phone] Encounter Details Date Type Department Care Team Description 09/09/2012 Liquid Waste Treatment Plant Operator Report Medical Records [address] [place] [address] Deanna Green [address] [place] [address] Social History Tobacco Use Types Packs/Day Years [...] on filedocumented in this encounter Care Teams Fueler Relationship Specialty Start Date End Date Jarrett Merlos MD PCP - General 06/08/01 03/22/20 Lee Fabian MD [address] [place] [id number] PCP - General Internal Medicine 03/23/20 documented as of this encounter
--- OUTSIDE RECORDS SUMMARY | 2025-08-18 04:13 | XMS_ITS | Encounter Summary ---
Author Organization [facility] Address [address] [place] [address] Care Team Providers Care Plug Sorter Name Role Phone Lee Fabian MD Primary Care Provider [phone] Reason for Visit * Reason Onset Date Comments Faxed Order 11/18/2023 [facility] Encounter Details Date Type Department Care Team Description 11/18/2023 Telephone Adult Medicine [address] [address] Lee Fabian MD [address] [place] [address] Faxed Order ([facility] ) [...] bin. Please complete, sign and fax to [phone] documented in this encounter Plan of Treatment Not on file documented as of this encounter Visit Diagnoses Not on filedocumented in this encounter Care Teams Plug Sorter Relationship Specialty Start Date End Date Lee Fabian MD [address] [place] [address] PCP - General Internal Medicine 03/23/20 documented as of this encounter
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
--- OUTSIDE RECORDS SUMMARY | 2025-08-18 04:13 | XMS_ITS | Encounter Summary ---
Author Organization [employer] [facility] Address [address] [place] [address] Care Team Providers Care Concrete Sculptor Name Role Phone Lee Fabian MD Primary Care Provider [phone] Encounter Details Date Type Department Care Team Description 03/21/2023 [employer] Ii Assembler Report Medical Records [address] [place] [address] Abstract, Provider Social History Tobacco Use Types [...] on filedocumented in this encounter Care Teams Concrete Sculptor Relationship Specialty Start Date End Date Lee Fabian MD [address] [place], [place] [id number] PCP - General Internal Medicine 03/23/20 documented as of this encounter
--- OUTSIDE RECORDS SUMMARY | 2025-08-18 04:13 | XMS_ITS | Encounter Summary ---
Author Organization [email or web address] [facility] Address [address] [place] [address] Care Team Providers Care Greenhouse Laborer Name Role Phone Jarrett Merlos MD Primary Care Provider Unavail able Lee Fabian MD Primary Care Provider [phone] Encounter Details Date Type Department Care Team Description 11/10/2017 Home Health Certification Medical Records [address] [place] [address] Abstract, Provider Social History Tobacco Use Types [...] on filedocumented in this encounter Care Teams Greenhouse Laborer Relationship Specialty Start Date End Date Jarrett Merlos MD PCP - General 06/08/01 03/22/20 Lee Fabian MD [address] [place] [address] PCP - General Internal Medicine 03/23/20 documented as of this encounter
--- OUTSIDE RECORDS SUMMARY | 2025-08-18 04:13 | XMS_ITS | Encounter Summary ---
Author Organization [facility] Address [address] [place] [address] Care Team Providers Care Geriatrician Name Role Phone Jarrett Merlos MD Primary Care Provider Unavail able Lee Fabian MD Primary Care Provider [phone] Encounter Details Date Type Department Care Team Description 02/13/2018 Hospital Medical Records [address] [place] [address] Dandre Do MD [address] [place] [address] Social History Tobacco Use Types Packs/Day Years [...] on filedocumented in this encounter Care Teams Geriatrician Relationship Specialty Start Date End Date Jarrett Merlos MD PCP - General 06/08/01 03/22/20 Lee Fabian MD [address] [place] [address] PCP - General Internal Medicine 03/23/20 documented as of this encounter
--- OUTSIDE RECORDS SUMMARY | 2025-08-18 04:13 | XMS_ITS | Encounter Summary ---
Author Organization [employer] [facility] Address [address] [place] [address] Care Team Providers Care Seamstress Fitter Name Role Phone Jarrett Merlos MD Primary Care Provider Unavail able Lee Fabian MD Primary Care Provider [phone] Encounter Details Date Type Department Care Team Description 12/29/2017 [facility] Medical Records [address] [place] [address] Katalina Martin MD Social History Tobacco Use [...] on filedocumented in this encounter Care Teams Seamstress Fitter Relationship Specialty Start Date End Date Jarrett Merlos MD PCP - General 06/08/01 03/22/20 Lee Fabian MD [address] [place] [address] PCP - General Internal Medicine 03/23/20 documented as of this encounter
--- OUTSIDE RECORDS SUMMARY | 2025-08-18 04:13 | XMS_ITS | Encounter Summary ---
Author Organization [facility] Address [address] [place] [address] Care Team Providers Care Red Cross Executive Director Name Role Phone Jarrett Merlos MD Primary Care Provider Unavail able Lee Fabian MD Primary Care Provider [phone] Encounter Details Date Type Department Care Team Description 01/18/2016 [facility] Medical Records [address] [place] [address] Shari Haynes Social History Tobacco Use Types [...] on filedocumented in this encounter Care Teams Red Cross Executive Director Relationship Specialty Start Date End Date Jarrett Merlos MD PCP - General 06/08/01 03/22/20 Lee Fabian MD [address] [place] [address] PCP - General Internal Medicine 03/23/20 documented as of this encounter
--- OUTSIDE RECORDS SUMMARY | 2025-08-18 04:13 | XMS_ITS | Encounter Summary ---
Author Organization [facility] Address [address] [place] [address] Care Team Providers Care Stakes Player Name Role Phone Lee Fabian MD Primary Care Provider [phone] Encounter Details Date Type Department Care Team Description 10/21/2022 Line Cook Report Medical Records [address] [place] [address] Bev Roberson, FRANDY Social History Tobacco Use [...] Player Relationship Specialty Start Date End Date Lee Fabian MD [address] [place], [place] [phone] PCP - General Internal Medicine 03/23/20 documented as of this encounter
--- OUTSIDE RECORDS SUMMARY | 2025-08-18 04:13 | XMS_ITS | Encounter Summary ---
Author Organization [facility] Address [address] [place] [address] Care Team Providers Care Solar Electric Installer Name Role Phone Lee Fabian MD Primary Care Provider [phone] Reason for Visit * Reason Onset Date Comments Faxed Order 11/25/2023 [facility] Encounter Details Date Type Department Care Team Description 11/25/2023 Telephone Adult Medicine [address] [address] Lee Fabian MD [address] [place] [address] Faxed Order ([facility] ) Social History Tobacco Use [...] on filedocumented in this encounter Care Teams Solar Electric Installer Relationship Specialty Start Date End Date Lee Fabian MD [address] [place] [address] PCP - General Internal Medicine 03/23/20 documented as of this encounter
--- OUTSIDE RECORDS SUMMARY | 2025-08-18 04:13 | XMS_ITS | Encounter Summary ---
Author Organization [employer] [facility] Address [address] [place] [address] Care Team Providers Care Museum Director Name Role Phone Jarrett Merlos MD Primary Care Provider Unavail able Lee Fabian MD Primary Care Provider [phone] Encounter Details Date Type Department Care Team Description 04/25/2016 Supervisor Drawing Report Medical Records [address] [place] [address] Lucrecia Duckworth NP Social History Tobacco Use [...] on filedocumented in this encounter Care Teams Museum Director Relationship Specialty Start Date End Date Jarrett Merlos MD PCP - General 06/08/01 03/22/20 Lee Fabian MD [address] [place] [address] PCP - General Internal Medicine 03/23/20 documented as of this encounter
--- OUTSIDE RECORDS SUMMARY | 2025-08-18 04:13 | XMS_ITS | Encounter Summary ---
Author Organization [facility] Address [address] [place] [address] Care Team Providers Care Waste/Materials Exchange Specialist Name Role Phone Lee Fabian MD Primary Care Provider [phone] Encounter Details Date Type Department Care Team Description 11/18/2022 Editor Map Report Medical Records [address] [place], [place] [address] [place] [address] Endocrine And Diabetes Social History Tobacco Use [...] on filedocumented in this encounter Care Teams Waste/Materials Exchange Specialist Relationship Specialty Start Date End Date Lee Fabian MD [address] [place] [address] PCP - General Internal Medicine 03/23/20 documented as of this encounter
--- OUTSIDE RECORDS SUMMARY | 2025-08-18 04:13 | XMS_ITS | Encounter Summary ---
Author Organization [facility] Address [address] [place] [address] Care Team Providers Care Computer Methods Analyst Name Role Phone Jarrett Merlos MD Primary Care Provider Unavail able Lee Fabian MD Primary Care Provider [phone] Encounter Details Date Type Department Care Team Description 09/16/2016 [employer]ye Peel Operator Report Medical Records [address] [place] [address] Shara Cline Social History Tobacco Use Types [...] filedocumented in this encounter Care Teams Computer Methods Analyst Relationship Specialty Start Date End Date Jarrett Merlos MD PCP - General 06/08/01 03/22/20 Lee Fabian MD [address] [place] [address] PCP - General Internal Medicine 03/23/20 documented as of this encounter
--- OUTSIDE RECORDS SUMMARY | 2025-08-18 04:13 | XMS_ITS | Encounter Summary ---
Author Organization [employer] [facility] Address [address] [place] [address] Care Team Providers Care Tobacco Stripper Hand Name Role Phone Jarrett Merlos MD Primary Care Provider Unavail able Lee Fabian MD Primary Care Provider [phone] Encounter Details Date Type Department Care Team Description 08/20/2016 [employer]ision Filer Hand Report Medical Records [address] [place] [address] Filippo Gagnon DPM Social History Tobacco Use [...] on filedocumented in this encounter Care Teams Tobacco Stripper Hand Relationship Specialty Start Date End Date Jarrett Merlos MD PCP - General 06/08/01 03/22/20 Lee Fabian MD [address] [place] [address] PCP - General Internal Medicine 03/23/20 documented as of this encounter
== END 2025-08-17 16:36 | disposition home or self-care (01) ==
LOC: HO.HSM 15:36
PROVIDERS: PCP Internal Medicine; Referring Provider Internal Medicine; Visit Provider Registered Nurse
DX: E11.42 Type 2 diabetes mellitus with diabetic polyneuropathy (principal); G31.84 Mild cognitive impairment of uncertain or unknown etiology
CPT/HCPCS: 99214

== ENCOUNTER → 2025-08-17 15:36 | Outpatient (BNVA) | payer MEDICARE, SELFPAY | PROVIDERS: PCP Internal Medicine; Referring Provider Internal Medicine; Visit Provider Registered Nurse | DX: E11.42 Type 2 diabetes mellitus with diabetic polyneuropathy (principal); G31.84 Mild cognitive impairment of uncertain or unknown etiology | CPT/HCPCS: 99212 ==

== ENCOUNTER 2025-09-19 14:54 | Outpatient (AMB) | payer MEDICARE, SELFPAY ==
--- NOTE | 2025-09-19 14:57 | MHC.OFFVIS ---
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 Accompanied by: Self / Same As Patient Allergies lisinopril Allergy (Mild, Verified 09/19/25 15:03) kidney trouble Medication List - Last Reconciled 09/20/25 by MICAH Wong amlodipine 10 mg PO DAILY apixaban 5 mg PO BID aspirin (Adult Aspirin Regimen) 81 mg PO DAILY bumetanide 2 mg PO DAILY 90 days cholecalciferol (vitamin D3) 25 mcg PO DAILY donepezil 10 mg PO BEDTIME 90 days empagliflozin (Jardiance) 25 mg PO DAILY glipizide ER 2.5 mg PO BID memantine (Namenda) 5 mg PO BID 90 days metformin 500 mg PO ONCE metoprolol tartrate 50 mg PO BID pantoprazole 40 mg PO QAM pravastatin 20 mg PO DAILY pregabalin (Lyrica) 150 mg PO BID 90 days tirzepatide (Mounjaro) 7.5 mg subcut QWEEK HPI HPI f/u post ablation [facility] with ekg: Details: The patient is a 64 year old male presenting for follow-up for atrial flutter status post recent ablation. He has a history of cardioversions and atrial fibrillation/ flutter with ablations in the past. For recurrent atrial flutter, he had a repeat ablation at [facility] on September 05. Prior to the most recent ablation, he experienced symptoms of shortness of breath. Since the procedure, he reports feeling better with more energy and a 20-30% improvement in his breathing. He also notes improvement in his lower extremity edema, though he still requires diuretics. His history is also significant for a pacemaker implantation, which was recently replaced with a leadless device due to a prior infection, and a Watchman device, Obstructive sleep apnea that is treated with Bipap. obesity with prior gastic bypass and left BKA. He reports compliance with medications. No bleeding issues with Eliquis use. He anticipates staying on Eliquis for 3 months post ablation. He is hoping to start walking routinely for exercise and begin some strengthening exercises. [facility] Medical History Diabetes Obstructive sleep apnea Paroxysmal atrial fibrillation (HFpEF) heart failure with preserved ejection fraction Presence of Watchman left atrial appendage closure device Pacemaker Hx of cardiac pacemaker Surgical History History of amputation of toe Hx of hand surgery Hx of colonoscopy Hx of total knee replacement Hx of gastric bypass History of amputation of lesser toe Hx of colonoscopy Hx of prior ablation treatment Hx of foot surgery Family History Father Emphysema lung Mother Heart failure Son Ulcerative colitis Brother No problems noted. Sister No problems noted. Sister No problems noted. Social History Are you a primary care support representative to a significant other at home: No Do you presently have visiting nurse or other home services: No Alcohol intake: current Alcohol intake frequency: a few times a week Patient Tobacco Use Status: Former Tobacco user Tobacco use type: Cigarette Review of Systems Const All systems reviewed & are unremarkable except as noted in HPI and below Denies daytime sleepiness, Denies difficulty sleeping, Denies snoring, Denies stops breathing during sleep and Denies weakness Card Denies chest pain, Denies rapid heart rate, Denies irregular heart rhythm, Denies claudication, Denies leg edema, Denies lightheadedness, Denies palpitations, Denies dyspnea, Denies dyspnea on exertion, Denies orthopnea, Denies paroxysmal nocturnal dyspnea and Denies slow heart rate Resp Denies cough, Denies dyspnea, Denies dyspnea on exertion and Denies snoring GI Reports no additional complaints, Denies hematochezia, Denies change in stool character and Denies dyspepsia Musc Details: groin sites feeling good Denies abnormal gait, Denies muscle weakness and Denies numbness Neuro Denies abnormal gait, Denies numbness and Denies weakness Endo Denies palpitations Physical Exam Vital Signs: Last Vital Signs Pulse 69 09/19/25 14:58 BP 132/64 09/19/25 14:58 BMI result Body Mass Index 37.4 Const General: comfortable and no acute distress Orientation/consciousness: patient oriented x3 HEENT Other: Unremarkable Head: Yes normal to inspection Resp Auscultation: clear to auscultation bilaterally Cardio Palpation: normal PMI Heart sounds: S1 normal heart sound present, S2 normal heart sound present, no gallops, no murmurs and no rubs GI Palpation (GI): Soft to palpation Neuro General: patient oriented x3 Extrem Other: L BKA Bilateral femoral pulses palpable, access sites well healed, no bruising, redness or reported tenderness Psych Mental Status: mental status grossly normal Office Procedures EKG Details: Today, read by me, atrial sensed, ventricular paced, some beats with [place] conduction, not afib, rate 69, Qtc 499ms [id number], Complete Assessment & Plan Assessment & Plan (1) Paroxysmal atrial fibrillation: Code(s): I48.0 - Paroxysmal atrial fibrillation Category: Medical Plan: Hx of PAF with prior cardioversions and ablations and recurrent atrial flutter. Previously on amiodarone which was stopped due to abnormal thyroid function tests. Repeat Ablation done at [facility] on 09/05/25. Reports his breathing and swelling issues have improved. Groin sites healing well. EKG today showing V paced rhythm, a few beats with probable [place] conduction and intermittent P waves - not atrial flutter. On Eliquis for next 3 months and tolerateing well. Continue Metoprolol for rate control. Follow up at [facility] as directed. Cardiology follow up this office 3-4 month - sooner if needed. . (2) (HFpEF) heart failure with preserved ejection fraction: Code(s): I50.30 - Unspecified diastolic (congestive) heart failure Category: Medical Plan: Hx HFpEF. Last echo 07/26/2025 showing EF 51%, no valve abnormalities, mild dilation of the sinus of Valsalva 4.42 cm, ascending aorta 4.1 cm, right atrium mildly dilated. He is not fluid overloaded on exam with the exception of mild pitting leg edema which he states is improving post ablation. Continue Bumex. Signs and symptoms of heart failure reviewed. Discussed low-salt diet, leg elevation and increase physical activity as tolerated. (3) Presence of Watchman left atrial appendage closure device: Code(s): Z95.818 - Presence of other cardiac implants and grafts Category: Medical Plan: Currently on Eliquis temporarily status post ablation 09/05/2025, then resume aspirin (4) Obstructive sleep apnea: Code(s): G47.33 - Obstructive sleep apnea (adult) (pediatric) Category: Medical Plan: On BiPAP. -compliant (5) Pacemaker: Comment: Micra pacemaker 11/17/2024 Code(s): Z95.0 - Presence of cardiac pacemaker Category: Medical Plan: Last device interrogation our office 01/2025 shows it is functioning normally. We have attempted to get remote monitoring in place, unable as of yet. Will continue. Will plan for office interrogation next visit. Plan I discussed the patient's progress since his cardiac ablation two weeks ago. We reviewed his EKG, and I explained that the current rhythm shows the pacemaker is working normally and that he is not in atrial flutter. I examined his groin sites and confirmed they appear to be healing well. We discussed his desire to start exercising, and I advised him to wait until September to begin a gentle, progressive program, such as walking, to allow for adequate healing. I emphasized that he should listen to his body and stop if he experiences pain. I confirmed his plan to continue Eliquis until November as directed, and I informed him that we will fax his EKG and my visit note to his team at [facility] for continuity of care. Patient Instructions: - Continue taking Eliquis 5 mg twice a day as prescribed. You should continue this medication until November, as directed by your specialist. - You can start a gentle exercise program in September, after the holidays. Good options include walking or using a stationary bicycle. Start slowly and increase your activity gradually. Listen to your body and stop if you feel pain. - Continue to care for the healing wound on your knee as you have been. - We will send a copy of your EKG and today's visit notes to your medical team at [facility] for their records. Patient was informed and verbally consented to the use of an ambient scribe for clinic note documentation during this visit. Visit time spent on chart review, interview, assessment, orders, documentation. Coding Level of Care Code Est Pt Level 4 (06390) Add On Problem Visit Only Diagnoses Paroxysmal atrial fibrillation I48.0 (HFpEF) heart failure with preserved ejection fraction I50.30 Presence of Watchman left atrial appendage closure device Z95.818 Obstructive sleep apnea G47.33 Pacemaker Z95.0 CPT Codes EKG - CPT: [id number], Complete ([id number]) Time Spent (min) 30
[2025-09-19 14:58] VITALS: BP 132/64; PULSE 69; BMI 37.4
--- OUTSIDE RECORDS SUMMARY | 2025-09-19 18:09 | XMS_ITS ---
Care Plan Created on: September 19, 2025 Luca Crwoe : 1960 Sex: Male Author Organization [facility] Address [address] [place] [address] Phone Care Team Providers Care Sample Builder Name Role Phone Lee Fabian MD Primary Care Provider [phone] Active Problems Problem Noted Date Diagnosed Date Anemia 07/20/2025 Chronic GERD 07/20/2025 GI bleed 07/20/2025 Overview (07/20/2025): remote hx Smoker 07/20/2025 Septic joint of left knee joint 07/20/2025 Hypothyroidism due to medication 07/15/2025 Stage 3b chronic kidney disease 07/15/2025 Bursitis of right elbow 07/13/2025 Dementia 05/17/2025 Hypothyroidism 05/17/2025 Acute diverticulitis 04/05/2025 Amputation of left lower extremity below knee Bacteremia 11/06/2024 Mitral valve vegetation 11/06/2024 Mitral valve regurgitation 11/06/2024 Acute osteomyelitis of left calcaneus 11/02/2024 Endocarditis 11/02/2024 Pacemaker infection 11/02/2024 Non-pressure chronic ulcer o f other [...] bone involvement without evidence of necrosis 10/06/2024 CKD (chronic kidney disease) 09/16/2024 Osteomyelitis 09/10/2024 Acute osteomyelitis of right ankle or foot 09/03 S/P debridement 08/31/2024 Diabetic infection of left [...] h diabetic peripheral angiopathy without gangrene 08/02/2024 Cataract of both eyes 07/20/2024 Obesity 07/07/2024 Renal osteodystrophy 06/01/2024 Complete atrioventricular block 05/30/2024 GERD (gastroesophageal reflux disease) Pain in extremity 05/30/2024 Chronic diastolic heart failure 04/28/2024 Iron deficiency 04/28/2024 Memory loss 04/28/2024 Vitamin D deficiency 04/28/2024 Stenosis of right carotid artery 12/29/2020 Overview (07/20/2025): Right carotid artery stenosis Paranoia 08/15/2020 Insomnia due to other mental disorder 08/01/2020 Chronic midline low back pain 06/02/2020 Lumbar spondylosis 06/02/2020 Paroxysmal atrial fibrillation 04/03/2018 Overview (07/20/2025): Paroxysmal atrial fibrillation S/P transmetatarsal amputation of foot, right RLS (restless legs syndrome) 10/09/2016 Erectile dysfunction 07/29/2016 Presence of permanent cardiac pacemaker 02/06/20 16 Overview (07/20/2025): For complete heart block after ablation for atrial fibrillation Atypical atrial flutter 10/19/2015 MERVIN (obstructive sleep apnea) 01/31/2011 Overview (07/20/2025): BiPap Cervical radiculopathy 04/14/2008 Claudication 04/14/2008 Osteoarthritis of left knee 10/06/2006 Overview [...] the sac/swelling in the elbow; decrease pain Decrease Wound Volume by X% by date (in notes) Care Plan Impaired Tissue On track( 025 11:43 AM EST) No Susan Peralta RN Patient and Caregiver Understand Wound Care Education Care Plan Impaired Tissue On track( 025 11:44 AM EST) No Susan Peralta RN [...] on impact of smoking on wound No Wurszt, Susan E, RN Decrease Wound Volume by X% by [...]
--- OUTSIDE RECORDS SUMMARY | 2025-09-19 18:09 | XMS_ITS | Clinical Summary ---
Author Organization [facility] Address [address] [place] [address] Phone Care Team Providers Care Train Announcer Name Role Phone Lee Fabian MD Primary Care Provider [phone] Allergies Active Allergy Reactions Criticality Noted Date [...] mouth 2 (two) times a day. Active blood-glucose meter (YPlanTouch Ultra2 Meter) misc To check sugars twice daily E11.9 1 kit 5 Active lancets lancets To check sugars twice daily E11.9 200 each 1 5 03/02/20 26 Active memantine (NAMENDA) 5 mg tablet Take 1 tablet (5 mg total) by mouth 2 (two) times a day. 5 Active tirzepatide (Mounjaro) 7.5 mg/0.5 mL injectionIndica tions:Type 2 diabetes mellitus with foot ulcer, unspecified whether intermediate designer insulin use Inject 0.5 mL (7.5 mg total) under the skin every 7 (seven) days. 2 mL 5 5 Active metFORMIN (GLUCOPHAGE) 500 mg tablet Take 1 tablet in the morning with breakfast 5 Active levothyroxine (SYNTHROID, LEVOTHROID) 175 mcg tablet Take 1 tablet (175 mcg total) by mouth 1 (one) time each day. 30 each 11 5 08/03/20 26 Active amLODIPine (NORVASC) 5 mg tablet TAKE TWO TABLETS (10 MG TOTAL) BY MOUTH DAILY AT 9AM 180 tablet 1 5 Active Jardiance 25 mg tabletIndicatio ns:Type 2 diabetes mellitus with diabetic peripheral angiopathy without gangrene, unspecified whether group home insulin use ([facility] V24, [facility] V28) TAKE ONE TABLET (25 MG TOTAL) BY MOUTH DAILY AT 9AM 90 tablet 3 5 Active OneTouch Ultra Test test strip Use twice a day to check sugars E11.9 200 each 1 5 Active glipiZIDE 2.5 mg tablet Take 2.5 mg by mouth 2 (two) times a day. 60 each 5 5 Active aspirin 81 mg EC tablet Take 1 tablet (81 mg total) by mouth 1 (one) time each day. 30 each 11 4 09/01/20 25 OneTouch Ultra Test test strip Use twice a day to check sugars E11.9 200 each 1 5 08/30/20 25 Discontinu ed(Reorder ) glipiZIDE 2.5 mg tablet Take 2.5 mg by mouth 2 (two) times a day. 5 09/02/20 25 Discontinu ed(Reorder ) OneTouch Ultra Test test strip Use twice a day to check sugars E11.9 200 each 1 5 09/09/20 25 Discontinu ed(Reorder ) glipiZIDE 2.5 mg tablet Take 2.5 mg by mouth 2 (two) times a day. 60 each 5 5 09/09/20 25 Discontinu ed(Reorder ) Active Problems Problem Noted Date Diagnosed Date [...] Encounters Date Type Department Care Team Description 09/12/2025 Telephone Endocrinology - [address] [phone] Destinee Reddy MD 09/07/2025 Results Follow-Up Endocrinology - [address] [phone] Geeta Person PA 09/06/2025 12:10 PM EST Lab Draw Station - [place] [address] [place] [address] Hypothyroidism, unspecified type 08/30/2025 Telephone Endocrinology - [address] [phone] Neda Snow PA 08/21/2025 Results Follow-Up Gastroenterology - [address] [facility] 299 [facility] [address] [place] [address] Fatou Weaver PA 08/16/2025 8:39 AM EST - 08/16/2025 11:59 PM EST Hospital Encounter [facility] MRI [address] [place] [address] Pancreas cyst Discharge Disposition: Home or Self Care 08/03/2025 Results Follow-Up [facility] - [address] [phone] Geeta Person PA 08/02/2025 12:20 PM EST Lab Draw Station - [place] [address] [place] [address] Hypothyroidism, unspecified type 08/02/2025 11:15 AM EST Treatment [facility] 175 [facility] [address] [place] [phone] Akhil Novak, OT Bursitis of right elbow, unspecified bursa (Primary Dx) 07/25/2025 2:40 PM EDT Office Visit Gastroenterology - [place] [facility] 175 [facility] [address] [place] [phone] Fatou Weaver PA Diverticulosis (Primary Dx); Pancreas cyst 07/19/2025 11:00 AM EDT Treatment [facility] [address] [address] Akhil Novak, OT Bursitis of right elbow, unspecified bursa (Primary Dx) 07/15/2025 10:30 AM EDT Office Visit Internal Medicine - [address] [phone] Bev Nichols NP Essential (primary) hypertension (Primary Dx); Type 2 diabetes mellitus with diabetic peripheral angiopathy without gangrene, without long-term current use of insulin ([facility] V24, CMS/HCC V28); Atypical atrial flutter (CMS/HCC V24, CMS/HCC V28); Chronic diastolic heart failure ([facility]/HCC V24, CMS/HCC V28); Hypothyroidism due to medication; Stage 3b chronic kidney disease (CMS/HCC V24, CMS/HCC V28); Dysuria; Urinary urgency 07/15/2025 Results Follow-Up Internal Medicine - [address] [phone] Bev Nichols NP 07/13/2025 10:00 AM EDT Evaluation [facility] [address] [address] Akhil Novak, OT Bursitis of right elbow, unspecified bursa (Primary Dx) 07/13/2025 Plan of Care Documentation [facility] [address] [phone] 07/05/2025 Results Follow-Up Endocrinology - [place] [phone] Geeta Person PA 07/01/2025 2:30 PM EDT Office Visit Walk-In Clinic - [address] [phone] Lalo Vazquez PA Olecranon bursitis of right elbow (Primary Dx) 06/30/2025 Telephone Internal Medicine - [place] [address] [place] [address] Lee Fabian MD from Last 3 Months Immunizations Immunization Administration Dates Next Due Influenza Quadravalent, MDCK , 0.5ml, preservative free (Flucelvax) 6mo and older 07/18/2022,06/26/2020 Influenza Quadravalent, MDCK , 0.5ml, with preservative (Flucelvax) 6mo and older 06/17/2021,07/08/2018 Influenza trivalent, 0.5mL, preservative free (Fluarix; FluLaval; Fluzone) ages 6mo and older (Afluria) 3 years and older 06/22/2024,05/20/2017,06/04/2016,06/18,06/19/2010 Influenza, Unspecified 07/08/2023,05/20/2017 [email or web address] SARS-CoV-2 COVID-19, mRNA, LNP-S, preservative free 07/08/2023,08/15/2021 [...] disease 05/30/2024 DX:Gastroesophageal reflux disease Atrial fibrillation ([facility] V24, [facility] V28) 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 ([facility] V24, [facility] V28) Hypothyroidism 05/17/2025 Family History Medical History [...] Orientation Straight 10/16/2022 10 :12 AM EST Last Filed Vital Signs Vital [...] Care Team (Late st Contact Info) Description 11/11/2025 10:20 AM EST Office Visit Endocrinology - [place] [address] [place] [address] Destinee Reddy MD [address] [place] [address] 03/14/2026 2:40 PM EDT Office Visit Gastroenterology - [address] [facility] [address] [place] [address] Fatou Weaver PA 299 [facility] [address] [place] [address] Health Maintenance Due Date Last Done Comments [...] exists COVID-19 Vaccine (8 - Pfizer risk 2024- season) 2026 07/04/2025, 07/08/2023, 09/10/2022, Additional history exists Diabetes: Annual Urine Albumin-Creatinine Ratio (uACR) 05/10/2026 05/10/2025, 04/14/2024, 04/14/2024 Diabetes: Annual GFR (Glomerular Filtration Rate) 08/15/2026 08/15/2025, 08/15/2025, 07/15/2025, Additional history exists Hypertension/CHF/CAD Annual BMP Blood Test 08/15/2026 08/15/2025, 08/15/2025, 07/15/2025, Additional history exists Cholesterol Screening (Lipid Panel) [...] of smoking on wound Suasn Allison RN Reduce tobacco use (cigarettes, smokeless, [...] Allison RN Medical Devices Implanted Type Area Medical Data Entry Clerk Device Identifier Shelf Expiration Date Model / Serial / Lot Cardiac Pacemaker Cardiac Pacemaker Left: Shoulder [employer] - CARDIAC RHYTH-CRDM Procedures Procedure Name Priority Date/Time Associated Diagnosis Comments THYROID STIMULATING HORMONE WITH REFLEX TO FREE T4 AND FREE T3 Routine 09/06/2025 12:18 PM EST Hypothyroidism, unspecified type MR ABDOMEN WO CONTRAST Routine 10:07 AM EST Pancreas cyst TRIIODOTHYRONINE FREE Routine 08/02/2025 12:21 PM EST Hypothyroidism, unspecified type FREE THYROXINE WITH REFLEX TO FREE TRIIODOTHYRONINE Routine 08/02/2025 12:21 PM EST Hypothyroidism, unspecified type THYROID STIMULATING HORMONE WITH REFLEX TO FREE T4 AND FREE T3 Routine 08/02/2025 12:21 PM EST Hypothyroidism, unspecified type MANRIQUE URINE CULTURE TUBE Routine 07/15/20 10:22 AM EDT Dysuria Urinary urgency URINALYSIS WITH REFLEX MICROSCOPIC AND CULTURE Routine 07/15/2025 10:22 AM EDT Dysuria Urinary urgency URINALYSIS WITH REFLEX MICROSCOPIC AND CULTURE Routine 07/15/2025 10:22 AM EDT Dysuria Urinary urgency BASIC METABOLIC PANEL Routine 07/15/2025 10:22 AM EDT Stage 3b chronic kidney disease ([facility] V24, [facility] V28) TRIIODOTHYRONINE FREE Routine 07/01/2025 3:02 PM EDT Hypothyroidism, unspecified type FREE THYROXINE WITH REFLEX TO FREE TRIIODOTHYRONINE Routine 07/01/2025 3:02 PM EDT Hypothyroidism, unspecified type THYROID STIMULATING HORMONE WITH REFLEX TO FREE T4 AND FREE T3 Routine 07/01/2025 3:02 PM EDT Hypothyroidism, unspecified type HEMOGLOBIN A1C Routine 06/02/2025 4:04 PM EDT Type 2 diabetes mellitus with foot ulcer, unspecified whether group home insulin use ([facility] V24, [facility] V28) LIPID PANEL WITH REFLEX TO DIRECT LDL Routine 08/20/2024 6:25 AM EST URINE ALBUMIN CREATININE RATIO Routine 04/14/2024 DIABETES EYE EXAM Routine 03/17/2024 COLONOSCOPY Routine 05/12/2023 HEPATITIS C SCREENING Routine 12/24/2017 from Last 3 Months or Most Recently Relevant to Health Maintenance Results * Thyroid stimulating hormone with reflex to free t4 and free t3 (09/06/2025 12:18 PM EST) Only the most recent of3 resultswithin the time period is included. TSH 1.79 0.40 - 4.00 mcIU/mL 09/06/2025 4:08 PM EST [facility] Blood Venous blood specimen / Unknown Venipuncture / Unknown 09/06/2025 12:18 PM EST 09/06/2025 12:18 PM EST us Geeta PATTON LAB BLOOD ORDERABLES Final Result [facility] [address] [place] [address], [place] [phone] * MR Abdomen wo Contrast (08/16/2025 10:07 AM EST) Anatomical Region Laterality Modality Body Magnetic Resonan ce 08/16/2025 7:17 PM EST Impressions 08/16/2025 7:40 PM EST Stable cystic lesion at the pancreatic body compared to 04/05/2025, 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 Continued follow-up recommended. -------- FINAL REPORT -------- Dictated By: ANGELO MELCHOR Dictated Date: 08/16/2025 19:17 ET Assigned Physician: ANGELO MELCHOR Reviewed and Electronically Signed By: ANGELO MELCHOR Signed Date: 08/16/2025 19:40 ET Workstation ID: [id number] Transcribed By: Self Edit Transcribed Date: 08/16/2025 19:17 ET Narrative 08/16/2025 7:40 PM EST PROCEDURE: Abdominal MRI INDICATION: Pancreatic cyst TECHNIQUE: Multiplanar, multisequence MRI of the abdomen Without contrast. COMPARISON: 04/05/2025 FINDINGS: Hepatic steatosis. No focal liver lesions. Gallbladder and biliary tree are normal. Unchanged 18 mm cystic lesion at the pancreatic body. No solid pancreatic mass or ductal dilatation. Spleen is normal. Adrenal glands are normal. Bilateral renal cysts. No solid renal mass or hydronephrosis. Abdominal aorta is normal in size. No retroperitoneal or mesenteric lymphadenopathy. Colonic diverticulosis. Postoperative changes related to prior gastric bypass. No bowel obstruction. No ascites or fluid collection. Superficial soft tissues are within normal limits. No marrow replacing lesions throughout the bones. Visualized intrathoracic structures are within normal limits. Procedure Note Angelo Melchor MD - 08/16/2025 PROCEDURE: Abdominal MRI INDICATION: Pancreatic cyst TECHNIQUE: Multiplanar, multisequence MRI of the abdomen Withoutcontrast. COMPARISON: 04/05/2025 FINDINGS: Hepatic steatosis. No focal liver lesions. Gallbladder and biliary tree are normal. Unchanged 18 mm cystic lesion at the pancreatic body. No solid pancreaticmass or ductal dilatation. Spleen is normal. Adrenal glands are normal. Bilateral renal cysts. No solid renal mass or hydronephrosis. Abdominal aorta is normal in size. No retroperitoneal or mesentericlymphadenopathy. Colonic diverticulosis. Postoperative changes related to prior gastricbypass. No bowel obstruction. No ascites or fluid collection. Superficial soft tissues are within normal limits. No marrow replacinglesions throughout the bones. Visualized intrathoracic structures are within normal limits. IMPRESSION: Stable cystic lesion at the pancreatic body compared to 04/05/2025, mostlikely a sidebranch IPMN. Continued follow-up recommended. -------- FINAL REPORT -------- Dictated By: ANGELO MELCHOR Dictated Date: 08/16/2025 19:17 ET Assigned Physician: ANGELO MELCHOR Reviewed and Electronically Signed By: ANGELO MELCHOR Signed Date: 08/16/2025 19:40 ET Workstation ID: [id number] Transcribed By: Self Edit Transcribed Date: 08/16/2025 19:17 ET us Fatou PATTON IMG MRI PROCEDURES Final Resu lt * Free thyroxine with reflex to free triiodothyronine (08/02/2025 12:21 PM EST) Only the most recent of2 resultswithin the time period is included. Free T4 1.11 0.70 - 1.80 ng/dL LAB CHEMISTRY METHOD 08/02/2025 5:11 PM EST [facility] Blood Venous blood specimen / Unknown Venipuncture / Unknown 08/02/2025 12:21 PM EST 08/02/2025 12:21 PM EST Geeta PATTON LAB BLOOD ORDERABLES Final Result [facility] [address] [place] [address], [place] [phone] * Triiodothyronine free (08/02/2025 12:21 PM EST) Only the most recent of2 resultswithin the time period is included. [facility] T3, Free 256 230 - 420 pcg/dL LAB CHEMISTRY METHOD 08/02/2025 5:46 PM EST [facility] Blood Venous blood specimen / Unknown Venipuncture / Unknown 08/02/2025 12:21 PM EST 08/02/2025 12:21 PM EST Geeta PATTON LAB BLOOD ORDERABLES Final Result [facility] [address] [place] [address], [place] [phone] * (ABNORMAL) Urinalysis with reflex microscopic and culture (07/15/2025 10:22 AM EDT) [facility] Specific Siler Urine 1.009 1.003 - 1.030 LAB URINALYSIS - AUTOMATED METHOD 07/15/2025 11:52 AM [facility] pH, Urine 5.0 5.0 - 8.0 pH LAB URINALYSIS - AUTOMATED METHOD 07/15/2025 11:52 AM [facility] Leukocytes, Urine Negative Negative LAB URINALYSIS - AUTOMATED METHOD 07/15/2025 11:52 AM [facility] Nitrite, Urine Negative Negative LAB URINALYSIS - AUTOMATED METHOD 07/15/2025 11:52 AM [facility] Protein, Urine 30(A) <=Trace mg/dL LAB URINALYSIS - AUTOMATED METHOD 07/15/2025 11:52 AM [facility] Glucose, Urine 500(A) Negative mg/dL LAB URINALYSIS - AUTOMATED METHOD 07/15/2025 11:52 AM [facility] Ketones, Urine Negative Negative mg/dL LAB URINALYSIS - AUTOMATED METHOD 07/15/2025 11:52 AM [facility] Urobilinogen, Urine 0.2 0.2 - 1.0 mg/dL LAB URINALYSIS - AUTOMATED METHOD 07/15/2025 11:52 AM [facility] Bilirubin, Urine Negative Negative LAB URINALYSIS - AUTOMATED METHOD 07/15/2025 11:52 AM [facility] Blood, Urine Negative Negative LAB URINALYSIS - AUTOMATED METHOD 07/15/2025 11:52 AM [facility] RBC, Urine 2.6 0 - 4 /HPF LAB URINALYSIS - AUTOMATED METHOD 07/15/2025 11:52 AM [facility] WBC, Urine 0.2 0 - 4 /HPF LAB URINALYSIS - AUTOMATED METHOD 07/15/2025 11:52 AM [facility] Squamous Epithelial, Urine 2 0 - 60 /LPF LAB URINALYSIS - AUTOMATED METHOD 07/15/2025 11:52 AM [facility] Bacteria, Urine Negative Negative /HPF LAB URINALYSIS - AUTOMATED METHOD 07/15/2025 11:52 AM [facility] Hyaline Casts, Urine 0.4 0 - 3 /LPF LAB URINALYSIS - AUTOMATED METHOD 07/15/2025 11:52 AM [facility] Urine Urine specimen obtained by clean catch procedure / Unknown Non-blood Collection / Unknown 07/15/2025 10:22 AM EDT 07/15/2025 10:22 AM EDT us Bev Nichols NP LAB URINE ORDERABLES Final Resu lt [facility] [address] [place] [address], * Manrique urine culture tube (07/15/2025 10:22 AM EDT) [facility] Extra Tube Hold for add-ons. 07/15/2025 12:01 PM EDT [facility] Comment:Auto resulted. Urine Urine specimen obtained by clean catch procedure / Unknown Non-blood Collection / Unknown 07/15/2025 10:22 AM EDT 07/15/2025 10:22 AM EDT Bev Nichols [employer] LAB URINE ORDERABLES Final Resu lt [facility] [address] [place] [address], * (ABNORMAL) Basic metabolic panel (07/15/2025 10:22 AM EDT) [facility] Sodium 138 133 - 145 mmol/L LAB CHEMISTRY METHOD 07/15/2025 2:47 PM [facility] Potassium 4.8 3.5 - 5.5 mmol/L LAB CHEMISTRY METHOD 07/15/2025 2:47 PM [facility] Chloride 102 96 - 110 mmol/L LAB CHEMISTRY METHOD 07/15/2025 2:47 PM [facility] CO2 24 21 - 32 mmol/L LAB CHEMISTRY METHOD 07/15/2025 2:47 PM [facility] Anion Gap 12(H) 3 - 11 LAB CHEMISTRY METHOD 07/15/2025 2:47 PM [facility] Glucose 197(H) 70 - 100 mg/dL LAB CHEMISTRY METHOD 07/15/2025 2:47 PM [facility] BUN 42(H) 5 - 25 mg/dL LAB CHEMISTRY METHOD 07/15/2025 2:47 PM [facility] Creatinine 2.04(H) 0.70 - 1.30 mg/dL LAB CHEMISTRY METHOD 07/15/2025 2:47 PM [facility] eGFR 36(L) >=60 mL/min/1. 73m2 LAB CHEMISTRY METHOD 07/15/2025 2:47 PM EDT [facility] Comment:Calculation based on the Chronic Kidney Disease Epidemiology Collaboration (CKD-EPI) equation refit without adjustment for race. BUN/Creatinine Ratio 20.6 LAB CHEMISTRY METHOD 07/15/2025 2:47 PM EDT [facility] Calcium 8.7 8.5 - 10.5 mg/dL LAB CHEMISTRY METHOD 07/15/2025 2:47 PM EDT [facility] Blood Venous blood specimen / Unknown Venipuncture / Unknown 07/15/2025 10:22 AM EDT 07/15/2025 10:22 AM EDT Bev Nichols NP LAB BLOOD ORDERABLES Final Resu lt Performing Organization Address City/[facility]/ZIP Co de Phone Number [facility] [address] [place] [address], [place] [phone] * Hemoglobin A1c (06/02/2025 4:04 PM EDT) Hemoglobin A1C 6.2 <6.5 % LAB CHEMISTRY METHOD 06/02/2025 9:23 PM EDT [facility] Mean Bld Glu Estim. 131 mg/dL LAB CHEMISTRY METHOD 06/02/2025 9:23 PM EDT [facility] Blood Venous blood specimen / Unknown Venipuncture / Unknown 06/02/2025 4:04 PM EDT 06/02/2025 4:04 PM EDT us Geeta PATTON LAB BLOOD ORDERABLES Final Result Performing Organization Address City/[facility]/ZIP Co de Phone Number [facility] [address] [place] [address], [place] [phone] * Lipid panel with reflex to direct LDL (08/20/2024 6:25 AM EST) Cholesterol 123 0 - 200 mg/dL LAB CHEMISTRY METHOD 08/20/2024 7:39 AM EST [facility] Triglycerides 102 0 - 150 mg/dL LAB CHEMISTRY METHOD 08/20/2024 7:39 AM [facility] HDL 53 >=40 mg/dL LAB CHEMISTRY METHOD 08/20/2024 7:39 AM [facility] LDL Calculated 50 0 - 100 mg/dL LAB CHEMISTRY METHOD 08/20/2024 7:39 AM [facility] VLDL Cholesterol Linus 20.4 mg/dL LAB CHEMISTRY METHOD 08/20/2024 7:39 AM [facility] Non HDL Chol. (LDL+VLDL) 70 <145 mg/dL LAB CHEMISTRY METHOD 08/20/2024 7:39 AM [facility] Chol/HDL Ratio 2.3 0.0 - 4.4 LAB CHEMISTRY METHOD 08/20/2024 7:39 AM [facility] Blood Venous blood specimen / Unknown Venipuncture / Unknown 08/20/2024 6:25 AM EST 08/20/2024 7:03 AM EST Jefferson Rendon MD LAB BLOOD ORDERABLES Final Resu lt [facility] [address] [place] [address], * Urine Albumin Creatinine Ratio (04/14/2024) [facility] Urine Albumin Creatinine Ratio Abstracted Historical Provider HEALTH MAINTENANCE Final Result * Diabetes Eye Exam (03/17/2024) [facility] Diabetes: Annual Retina Eye Exam Abstracted Historical Provider HEALTH MAINTENANCE Final Result * Colonoscopy (05/12/2023) [facility] Colonoscopy No Interpretation , Abstracted Anatomical Region Laterality Modality Other us Historical Provider HEALTH MAINTENANCE Final Result * Hepatitis C Screening (12/24/2017) Hepatitis C Screening Abstracted Historical Provider HEALTH MAINTENANCE Final Result from Last 3 Months or Most Recently Relevant to Health Maintenance Additional Health Concerns Active Problems Noted Date Diagnosed Date Impaired Tissue 08/10/2024 Education needed on impact of smoking on wound 1 10/10/2023 Education needed related to ulceration/compromised skin integrity. 08/10/2024 Insurance [employer] MEDICARE ADVANTAGE Advance Directives Documents on File Type Date Recorded Patient Breaster Expl anation Advance Directives and Living Will [...] Relationship Healthcare Agent Relationshi p Communication Blas Crowe Son First Alternate Health Care Agent Care Teams Train Announcer Relationship Specialty Start Date End Date Lee Fabian MD [address] [place] [address] PCP - General Internal Medicine 08/03/24
--- OUTSIDE RECORDS SUMMARY | 2025-09-19 18:10 | XMS_ITS | Clinical Summary ---
Author Organization [facility] Address [address] [facility] [address] [place] [address] Phone Care Team Providers Care Patrol Police Sergeant Name Role Phone Pcp, Unknown Primary Care [...] Payer (Ef fective 2018-Present) Name:Sebastien Luca Member ID:[id number] Relation to Subscriber:Self Name:Angeles Crowen Subscriber ID:[id number] Payer ID:[id number] Group ID:Not on file Type:Medicare Address: [facility] [employer] [address] [place] [id number] [employer] CROSS MEDEX SUPPLEMENT MEDICARE PART A & B [employer] SUPPLEMENT MEDICARE PART A & B [employer] SUPPLEMENT MEDICARE PART A & B [employer] SUPPLEMENT MEDICARE PART A & B [employer] SUPPLEMENT MEDICARE PART A & B [employer] SUPPLEMENT MEDICARE PART A & B [employer] MEDEX SUPPLEMENT MEDICARE PART A & B [employer] SUPPLEMENT MEDICARE PART A & B [employer] SUPPLEMENT MEDICARE PART A & B [employer] SUPPLEMENT Care Teams Patrol Police Sergeant Relationship Specialty Start Date End Date Pcp, Unknown PCP - General 04/09/20 Additional Source Comments The information contained in this document represents components of the legal health record. It is not the complete legal health record.[facility]
--- OUTSIDE RECORDS SUMMARY | 2025-09-19 18:10 | XMS_ITS | Encounter Summary ---
Author Organization [facility] Address [address] [place] [address] Care Team Providers Care Car Rental Agency Manager Name Role Phone Lee Fabian MD Primary Care Provider [phone] Encounter Details Date Type Department Care Team (Late st Contact Info) Description 08/03/2025 Results Follow-Up Endocrinology - [address] [address] Geeta Person PA [facility] [address] Social History Tobacco Use Types Packs/Day Years [...] Start Date End Date levothyroxine (SYNTHROID, LEVOTHROID) 175 mcg tablet Take 1 tablet (175 mcg total) by mouth 1 (one) time each day. 30 each 08/03/2025 08/03/2026 documented in this encounter Plan of Treatment Upcoming Encounters Date Type Department Care Team (Late st Contact Info) Description 11/11/2025 10:20 AM EST Office Visit Endocrinology - [place] [address] [place] [address] Destinee Reddy MD [address] [place], [place] 03/14/2026 2:40 PM EDT Office Visit Gastroenterology - [address] [address] Fatou Weaver PA [address] [place] [address] documented as of this encounter Goals Goal [...] Peralta RN documented as of this encounter Results * Thyroid stimulating hormone with reflex to free t4 and free t3 (09/06/2025 12:18 PM EST) TSH 1.79 0.40 - 4.00 mcIU/mL 09/06/2025 4:08 PM EST [facility] Blood Venous blood specimen / Unknown Venipuncture / Unknown 09/06/2025 12:18 PM EST 09/06/2025 12:18 PM EST us Geeta PATTON LAB BLOOD ORDERABLES Final Result [facility] [address] [place] [address], documented in this encounter Visit Diagnoses Diagnosis Hypothyroidism, unspecified type- Primary documented in this encounter Discontinued Medications Medication Sig Discontinue Reason Start Date End Da te levothyroxine (SYNTHROID, LEVOTHROID) 150 mcg tablet Take 1 tablet (150 mcg total) by mouth 1 (one) time each day. Formulary change 07/05/2025 08/03/2025 documented as of this encounter Additional Health Concerns Active Problems Noted Date Diagnosed Date Impaired Tissue 08/10/2024 Education needed on impact of smoking on wound 1 10/10/2023 Education needed related to ulceration/compromised skin integrity. 08/10/2024 documented as of this encounter Care Teams Car Rental Agency Manager Relationship Specialty Start Date End Date Lee Fabian MD [address] [place] [address] PCP - General Internal Medicine 08/03/24 documented as of this encounter
--- OUTSIDE RECORDS SUMMARY | 2025-09-19 18:10 | XMS_ITS | Encounter Summary ---
Author Organization Lauren Kim [facility] Address [address] [place] [address] Care Team Providers Care Specialty Transformer Assembler Name Role Phone Lee Fabian Primary Care Provider [phone] Encounter Details Date Type Department Care Team (Latest Contact Info) Description 09/05/2025 Transcribe Orders Department of Cardiology [facility] Cardiology [address] [place] [address] Kelsea Duran NP 41 [place] [address] Cardiac arrhythmia, unspecified cardiac arrhythmia type (Primary Dx) Social History Tobacco Use Types Packs/Day Years Used Date Smoking Tobacco: Former Cigarettes 0 Q uit: 04/29/2025 Smokeless Tobacco: Never Alcohol Use Standard Drinks/Week Comments Not Currently 5 (1 standard drink = 0.6 oz pur e alcohol) Sex and Gender Information Value Date Recorded Sex Assigned at Male 11/23/2018 4:04 PM EST Legal Sex Male 1:49 PM EDT Gender Identity Male 11/23/2018 4:04 PM EST Sexual Orientation Not on file documented as of this encounter Functional Status * Are you deaf or do you have serious difficulty hearing? Answer Date of Assessment Author No 09/05/2025 6:00 AM [place] * Are you blind or do you have serious difficulty seeing, even when wearing glasses? Answer Date of Assessment Author No 09/05/2025 6:00 AM [place] * Do you have serious difficulty walking or climbing stairs? Answer Date of Assessment Author Yes 09/05/2025 6:00 AM [place] * Do you have difficulty dressing or bathing? Answer Date of Assessment Author No 09/05/2025 6:00 AM [place] * Because of a physical, mental, or emotional condition, do you have difficulty doing errands alone such as visiting the doctor? Answer Date of Assessment Author No 09/05/2025 6:00 AM CON Dutton [place] documented as of this encounter Mental Status * Because of a physical, mental, or emotional condition, do you have serious difficulty concentrating, remembering, or making decisions? Answer Entry Date Author No 09/05/2025 6:00 AM CON Dutton [place] documented in this encounter Plan of Treatment Upcoming Encounters Date Type Department Care Team (Late st Contact Info) Description 12/21/2025 10:10 AM EDT Office Visit Department of Cardiology [facility] [address] [place] [address] Wilfrid Whitfield MD [address] [place] [address] In Person with Physician Scheduled Orders Name Type Priority Associated Diagnoses Orde r Schedule ECG 12 lead (Interfaced/Jackson) ECG Routine Cardiac arrhythmia, unspecified cardiac arrhythmia type 1 Occurrences starting 09/05/2025 until 09/05/2026 documented as of this encounter Visit Diagnoses Diagnosis Cardiac arrhythmia, unspecified cardiac arrhythmia type- Primary documented in this encounter Care Teams Specialty Transformer Assembler Relationship Specialty Start Date End Date Lee Fabian [address] [place] [address] PCP - General 01/10/25 documented as of this encounter
--- OUTSIDE RECORDS SUMMARY | 2025-09-19 18:10 | XMS_ITS | Encounter Summary ---
Author Organization [facility] Address [address] [place] [address] Care Team Providers Care Major League Baseball Player Name Role Phone Lee Fabian MD Primary Care Provider [phone] Encounter Details Date Type Department Care Team (Late st Contact Info) Description 07/15/2025 Results Follow-Up Internal Medicine - [place] [address] [phone] Bev Nichols NP 305 [facility] [place] [address] Social History Tobacco Use Types Packs/Day Years [...] 11/11/2025 10:20 AM EST [facility] [address] [place], [place] [phone] Destinee Reddy MD [address] [place] [address] 03/14/2026 2:40 PM EDT Office Visit Gastroenterology - 299 [place] [address] [address] Fatou Weaver PA [address] [address] documented as of this encounter Goals Goal [...] documented as of this encounter Care Teams Major League Baseball Player Relationship Specialty Start Date End Date Lee Fabian MD [address] [place] [address] PCP - General Internal Medicine 08/03/24 documented as of this encounter
--- OUTSIDE RECORDS SUMMARY | 2025-09-19 18:10 | XMS_ITS | Encounter Summary ---
Author Organization [facility] Address [address] [place] [address] Care Team Providers Care Biological Engineer Name Role Phone Lee Fabian MD Primary Care Provider Unavail able Vitaliy Fields MD Unavailable Dallas Camejo MD Unavailable Rolando Lopez MD Unavailable Cesar Fair MD Unavailable Daisy Her PT Unavailable Ena Mtz MD Unavailable Toni Rae MD Unavailable [phone] System, Provider Not In Unavailable Unavaila Manuel Soler MD Unavailable [phone] Encounter Details Date Type Department Care Team (Late st Contact Info) Description 12/15/2024 Scanned Document [facility] [place] [address] Dallas Camejo MD [address] [place] [address] Social History Tobacco Use Types Packs/Day Years Used Date Smoking Tobacco: Former Cigarettes 30 1 977 - 2004 Smokeless Tobacco: Never Alcohol Use Standard Drinks/Week Comments Yes 21 (1 standard drink = 0.6 oz pu re alcohol) [facility] Utilities Answer Date Recorded In [...] Care Team (Late st Contact Info) Description 11/08/2025 8:45 AM EST Office Visit [facility] [place] [address] [address] Manuel Mesa MD 499 [facility] [address] [place] [address] documented as of this encounter Visit Diagnoses Not on filedocumented in this encounter Care Teams Biological Engineer Relationship Specialty Start Date End Date Lee Fabian MD PCP - General Internal Medicine 09/02/24 Vitaliy Fields MD [address] [place] [address] Cardiovascular Disease 09/02/24 [place] Camejo MD [address] [place] [address] Surgery, Orthopedic 09/02/24 Rolando Lopez MD [address] Transplant - Ph 14 [place] [address] Physician Nephrology 09/02/24 Cesar Fair MD 85 [facility] 919 [place] [address] Surgery, Cardiac 11/08/24 Daisy Her, PT 85 [facility] 609 [place] [address] Turn OutPack Room Operator Medicine and Rehabilitation 11/18/24 Ena Mtz MD [address] [place] [address] Infectious Disease 04/12/25 Toni Rae MD [address] [address] Surgery, Vascular 04/12/25 System, Provider Not In [address] [address] 04/12/25 Manuel Mesa MD [address] [place] [address] Physician Surgery, Orthopedic 04/19/25 documented as of this encounter
--- OUTSIDE RECORDS SUMMARY | 2025-09-19 18:10 | XMS_ITS | Encounter Summary ---
Author Organization [facility] Address [address] [place] [address] Care Team Providers Care Tonguer Name Role Phone Lee Fabian MD Primary Care Provider Unavail able Vitaliy Fields MD Unavailable [place] Camejo MD Unavailable Rolando Lopez MD Unavailable Cesar Fair MD Unavailable Daisy Her PT Unavailable [phone] Ena Mtz MD Unavailable [phone] Toni Rae MD Unavailable [phone] System, Provider Not In Unavailable Unavaila Manuel Soler MD Unavailable [phone] Encounter Details Date Type Department Care Team (Late st Contact Info) Description 12/07/2024 Scanned Document [facility] [address] [place], [place] [address] Alejandra Eddy [address] [place] [address] Social History Tobacco Use Types Packs/Day Years Used Date Smoking Tobacco: Former Cigarettes 30 1 977 - 2004 Smokeless Tobacco: Never Alcohol Use Standard Drinks/Week Comments Yes 21 (1 standard drink = 0.6 oz pu re alcohol) [facility] Utilities Answer Date Recorded In the past 12 months has th e electric, gas, oil, or water [employer] threatened to shut off services in your [...] any time in the past 12 m [facility], were you homeless or living in a senior living (including now)? No 11/03/2024 Sex and Gender [...] AM EST Office Visit [facility] [address] [facility] [address] [place] [address] Manuel Mesa MD 499 [facility] [address] [place] [address] documented as of this encounter Visit Diagnoses Not on filedocumented in this encounter Care Teams Tonguer Relationship Specialty Start Date End Date Lee Fabian MD PCP - General Internal Medicine 09/02/24 Vitaliy Fields MD [address] [place] [address] Cardiovascular Disease 09/02/24 [place] Camejo MD 7 [place] [address] Surgery, Orthopedic 09/02/24 Rolando Lopez MD [address] Transplant - Ph 14 [place] [address] Physician Nephrology 09/02/24 Cesar Fair MD 85 [facility] 919 [place] [address] Surgery, Cardiac 11/08/24 Daisy Her, PT 85 [facility] 609 [place] [address] Carry All DriverRejoiner Medicine and Rehabilitation 11/18/24 Ena Mtz MD 132 [place] [address] Infectious Disease 04/12/25 Toni Rae MD [address] [address] Surgery, Vascular 04/12/25 System, Provider Not In [facility] [address] [address] 04/12/25 Manuel Mesa MD [address] [place] [address] Physician Surgery, Orthopedic 04/19/25 documented as of this encounter
--- OUTSIDE RECORDS SUMMARY | 2025-09-19 18:10 | XMS_ITS | Encounter Summary ---
Author Organization Lauren [facility] Address [address] [place] [address] Care Team Providers Care Certified Alcohol Drug Counselor Name Role Phone Jarrett Merlos Primary Care Provider [phone] Julia Cadet NP Unavailable Edson Cheung MD Unavailable Unavailable Lee Fabian Primary Care Provider [phone] Lee Fabian Primary Care Provider [phone] Encounter Details Date Type Department Care Team (Late st Contact Info) Description 11/02/2015 Pre Visit Planning THE DEPARTMENT OF CARDIOTHORACIC SURGERY [facility] Cardiothoracic Surgery [address] [facility] [address] [facility] [address] [place] [address] Julia Cadet NP 41 [facility] 4 [place] [address] Social History Tobacco Use Types Packs/Day Years Used Date Smoking Tobacco: Former Cigarettes 0 Q uit: 10/16/2009 Smokeless Tobacco: Never Alcohol Use Standard Drinks/Week Comments Yes 14 (1 standard drink = 0.6 oz pu re alcohol) Sex and Gender Information Value Date Recorded Sex Assigned at Male 11/23/2018 4:04 PM EST Legal Sex Male 1:49 PM EDT Gender Identity Male 11/23/2018 4:04 PM EST Sexual Orientation Not on file documented as of this encounter Plan of Treatment Upcoming Encounters Date Type Department Care Team (Late st Contact Info) Description 12/21/2025 10:10 AM EDT Office Visit Department of Cardiology [facility] Cardiology [address] [place] [address] Wilfrid Whitfield MD [address] [place] [address] In Person with Physician documented as of this encounter Visit Diagnoses Not on filedocumented in this encounter Care Teams Certified Alcohol Drug Counselor Relationship Specialty Start Date End Date Jarrett Merlos [address] [place] [address] PCP - General 10/16/15 07/06/24 Lee Fabian [address] [place] [address] PCP - General 07/07/24 01/09/25 Lee Fabian [address] [place] [address] PCP - General 01/10/25 Julia Cadet NP [address] [place] [address] 4 [place] [address] Nurse Practitioner Thoracic Surgery 10/28/15 01/27/16 Edson Cheung MD [address] [place] [address] 4 [place] [address] Consulting Provider Cardiothoracic Surgery 10/28/15 11/28/15 documented as of this encounter
--- OUTSIDE RECORDS SUMMARY | 2025-09-19 18:10 | XMS_ITS | Encounter Summary ---
Author Organization [facility] Address [address] [place] [address] Care Team Providers Care Med Surg Rn Name Role Phone Lee Fabian MD Primary Care Provider [phone] Reason for Visit * Reason Onset Date Comments lab work 09/12/2025 Encounter Details Date Type Department Care Team (Late st Contact Info) Description 09/12/2025 Telephone Endocrinology - [place] [address] [place] [phone] Destinee Reddy MD [address] [place] [address] Social History Tobacco Use Types Packs/Day Years [...] documented in this encounter Progress Notes * Yudelka Jackson - 09/12/2025 10:43 AM EST Endocrine Call Primary endocrine provider: Geeta Person PA-C Is the endocrine provider in the office toady?: no Who is calling? The patient. If not the patient or parent/guardian please check for authorization to share/verbal release. Why is the person calling? Orders (labs or imaging). Patient wanting labs/images ordered. Please send directly to endocrine provider. Which labs/images: Patient will be following up with Dr. Reddy in Geeta's absence in October, and would like to have an A1C lab placed to have done before OV . documented in this encounter Plan of Treatment Upcoming Encounters Date Type Department Care Team (Late st Contact Info) Description 11/11/2025 10:20 AM EST Office Visit Endocrinology [address] [address] Destinee Reddy MD 444 [place] [address] 03/14/2026 2:40 PM EDT Office Visit Gastroenterology - 299 [place] 299 [facility] [address] [place] [address] Fatou Weaver PA 299 [facility] 419 [place] [address] Scheduled Orders Name Type Priority Associated Diagnoses Orde r Schedule Hemoglobin A1c Lab Routine Type 2 diabetes mellitus with hyperglycemia, without long-term current use of insulin ([facility] V24, [facility] V28) 1 Occurrences starting 09/12/2025 until 09/12/2026 Lipid panel with reflex to direct LDL Lab Routine Type 2 diabetes mellitus with hyperglycemia, without long-term current use of insulin ([facility] V24, [facility] V28) 1 Occurrences starting 09/12/2025 until 09/12/2026 Microalbumin, urine, random Lab Routine Type 2 diabetes mellitus with hyperglycemia, without long-term current use of insulin ([facility] V24, [facility] V28) 1 Occurrences starting 09/12/2025 until 09/12/2026 documented as of this encounter Goals Goal [...] Diagnoses Diagnosis Type 2 diabetes mellitus with hyperglycemia, without long-term current use of insulin ([facility] V24, [facility] V28)- Primary documented in this encounter Additional Health Concerns Active Problems Noted Date Diagnosed Date Impaired Tissue 08/10/2024 Education needed on impact of smoking on wound 1 10/10/2023 Education needed related to ulceration/compromised skin integrity. 08/10/2024 documented as of this encounter Care Teams Med Surg Rn Relationship Specialty Start Date End Date Lee Fabian MD [address] [place] [address] PCP - General Internal Medicine 08/03/24 documented as of this encounter
--- OUTSIDE RECORDS SUMMARY | 2025-09-19 18:10 | XMS_ITS | Encounter Summary ---
Author Organization [facility] Address [address] [place] [address] Care Team Providers Care Pensionholder Information Clerk Name Role Phone Lee Fabian MD Primary Care Provider Unavail able Vitaliy Fields MD Unavailable [place] Camejo MD Unavailable [phone] Rolando Lopez MD Unavailable [phone] Cesar Fair MD Unavailable Daisy Her PT Unavailable [phone] Ena Mtz MD Unavailable [phone] Toni Rae MD Unavailable [phone] System, Provider Not In Unavailable Unavaila Manuel Soler MD Unavailable Encounter Details Date Type Department Care Team (Late st Contact Info) Description 10/19/2024 Scanned Document [facility] [address] [place], [place] [address] Alejandra Eddy [address] [place] [address] Social History Tobacco Use Types Packs/Day Years Used Date Smoking Tobacco: Former Cigarettes 30 1 977 - 2004 Smokeless Tobacco: Never Alcohol Use Standard Drinks/Week Comments Yes 21 (1 standard drink = 0.6 oz pu re alcohol) [facility] Utilities Answer Date Recorded In the past 12 months has th e electric, gas, oil, or water [employer] threatened to shut off services in your [...] in the past 12 m [facility], were you homeless or living in a long-term (including now)? 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/10/24 09/16/2024 09/16/2024 11/24/2024 3:08 P M EST R/O Respiratory Disease 11/07/2024 11/07/202410/30 7:06 AM EST R/O Respiratory Disease 11/23/2024 11/23/202410/31 12:00 PM EST documented as of this encounter Care Teams Pensionholder Information Clerk Relationship Specialty Start Date End Date Lee Fabian MD PCP - General Internal Medicine 09/02/24 Vitaliy Fields MD [address] [place] [address] Cardiovascular Disease 09/02/24 [place] Camejo MD [address] [place] [address] Surgery, Orthopedic 09/02/24 Rolando Lopez MD [address] Transplant - Ph 14 [place] [address] Physician Nephrology 09/02/24 Cesar Fair MD [address] [place] [address] [place] [id number] Surgery, Cardiac 11/08/24 Daisy Her, PT 85 [facility] [address] [place] [address] Milieu TherapistBreakdown Worker Medicine and Rehabilitation 11/18/24 Ena Mtz MD [address] [place] [address] Infectious Disease 04/12/25 Toni Rae MD [address] [place] [address] Surgery, Vascular 04/12/25 System, Provider Not In [address] [place] [address] 04/12/25 Manuel Mesa MD [address] [place] [address] Physician Surgery, Orthopedic 04/19/25 documented as of this encounter
--- OUTSIDE RECORDS SUMMARY | 2025-09-19 18:10 | XMS_ITS | Encounter Summary ---
Author Organization Lauren Kim [facility] Address [address] [place] [address] Care Team Providers Care Energy Consultant Name Role Phone Jarrett Merlos Primary Care Provider [phone] Julia Cadet CHIEF ACCOUNTING OFFICER Unavailable [phone] Edson Cheung MD Unavailable Unavailable Lee Fabian Primary Care Provider [phone] Lee Fabian Primary Care Provider [phone] Encounter Details Date Type Department Care Team (Late st Contact Info) Description 10/30/2015 Pre Visit Planning Department of Cardiology [facility] [address] [place] [address] Hilda Olivier PA [address] [place] [address] Social History Tobacco Use Types Packs/Day Years Used Date Smoking Tobacco: Former Cigarettes 0 Q uit: 10/16/2009 Alcohol Use Standard Drinks/Week Comments Yes 14 [...] AM EDT Office Visit Department of Cardiology [facility] [address] [address] Wilfrid Whitfield MD 41 [place] [address] In Person with Physician documented as of this encounter Visit Diagnoses Not on filedocumented in this encounter Care Teams Energy Consultant Relationship Specialty Start Date End Date Jarrett Merlos [address] [place] [address] PCP - General 10/16/15 07/06/24 Lee Fabian [address] [place] [address] PCP - General 07/07/24 01/09/25 Lee Fabian [address] [place] [address] PCP - General 01/10/25 Julia Cadet NP [address] [place] [address] Nurse Practitioner Thoracic Surgery 10/28/15 01/27/16 Edson Cheung MD [address] [place] [address] Consulting Provider Cardiothoracic Surgery 10/28/15 11/28/15 documented as of this encounter
--- OUTSIDE RECORDS SUMMARY | 2025-09-19 18:10 | XMS_ITS | Clinical Summary ---
Author Organization [facility] [address] [facility] [address] [place] [address] Phone Care Team Providers Care Hand Rigger Name Role Phone Lee Fabian MD Primary Care Provider [phone] Allergies Active Allergy Reactions Criticality Noted Date [...] Office Visit [facility] [address] [facility] [address] [place] [address] Marlin Zarate ARNP [address] [facility] [address] [place] [address] Health Maintenance Due Date Last [...] this topic Insurance [employer] MCR Adv PPO ([id number]) [employer] MCR Adv PPO ([id number]) Care Teams Hand Rigger Relationship Specialty Start Date End Date Lee Fabian MD PCP - General Internal Medicine 01/21/24
--- OUTSIDE RECORDS SUMMARY | 2025-09-19 18:10 | XMS_ITS | Encounter Summary ---
Author Organization [facility] Address [address] [place] [address] Care Team Providers Care Librarian School Name Role Phone Lee Fabian MD Primary Care Provider Unavail able Vitaliy Fields MD Unavailable [phone] Dallas Camejo MD Unavailable [phone] Rolando Lopez MD Unavailable Cesar Fair MD Unavailable Daisy Her PT Unavailable [phone] Ena Mtz MD Unavailable Toni Rae MD Unavailable [phone] System, Provider Not In Unavailable Unavaila Manuel Soler MD Unavailable Encounter Details Date Type Department Care Team (Late st Contact Info) Description 10/19/2024 Scanned Document [facility] [address] [place], [place] [id number] Alejandra Eddy [address] [place] [address] Social History Tobacco Use Types Packs/Day Years Used Date Smoking Tobacco: Former Cigarettes 30 1 977 - 2004 Smokeless Tobacco: Never Alcohol Use Standard Drinks/Week Comments Yes 21 (1 standard drink = 0.6 oz pu re alcohol) [facility] Utilities Answer Date Recorded In the past 12 months has th e electric, gas, oil, or water [employer] threatened to shut off services in your [...] any time in the past 12 m [facility], were you homeless or living in a intermediate (including now)? 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/10/24 09/16/2024 09/16/2024 11/24/2024 3:08 P M EST R/O Respiratory Disease 11/07/2024 11/07/202410/30 7:06 AM EST R/O Respiratory Disease 11/23/2024 11/23/202410/31 12:00 PM EST documented as of this encounter Care Teams Librarian School Relationship Specialty Start Date End Date Lee Fabian MD PCP - General Internal Medicine 09/02/24 Vitaliy Fields MD [address] [place] [address] Cardiovascular Disease 09/02/24 Dallas Camejo MD [address] [place] [address] Surgery, Orthopedic 09/02/24 Rolando Lopez MD [address] Transplant - Ph [address] [place] [address] Physician Nephrology 09/02/24 Cesar Fair MD [address] [place] [address] [place] [phone] Surgery, Cardiac 11/08/24 Daisy Her, PT [address] [facility] [address] [place] [address] [employer] [facility] 11/18/24 Ena Mtz MD [address] [place] [address] Infectious Disease 04/12/25 Toni Rae MD [address] [place] [address] Surgery, Vascular 04/12/25 System, Provider Not In [address] [place] [address] 04/12/25 Manuel Mesa MD [address] [place] [address] Physician Surgery, Orthopedic 04/19/25 documented as of this encounter
--- OUTSIDE RECORDS SUMMARY | 2025-09-19 18:10 | XMS_ITS | Encounter Summary ---
Author Organization [facility] Address [address] [place] [address] Care Team Providers Care Aerophysics Engineer Name Role Phone Lee Fabian MD Primary Care Provider [phone] Encounter Details Date Type Department Care Team ([facility] st Contact Info) Description 08/21/2025 Results Follow-Up Gastroenterology - [address] [facility] [address] [place] [address] Fatou Weaver PA [address] [facility] [address] [place] [address] Social History Tobacco Use Types Packs/Day Years [...] documented in this encounter Progress Notes * POOJA Correia - 08/21/2025 4:52 PM EST I will send msg. documented in this encounter Plan of Treatment Upcoming Encounters Date Type Department Care Team (Late st Contact Info) Description 11/11/2025 10:20 AM EST Office Visit Endocrinology - [place] [address] [place] [address] Destinee Reddy MD [address] [place], [place] 03/14/2026 2:40 PM EDT Office Visit Gastroenterology - [address] [address] Fatou Weaver PA [address] [place] [phone] documented as of this encounter Goals Goal [...] documented as of this encounter Care Teams Aerophysics Engineer Relationship Specialty Start Date End Date Lee Fabian MD [address] [place] [address] PCP - General Internal Medicine 08/03/24 documented as of this encounter
--- OUTSIDE RECORDS SUMMARY | 2025-09-19 18:10 | XMS_ITS | Clinical Summary ---
Author Organization Lauren albrecht Address [address] [place] [id number] Care Team Providers Care Professor Of Public Administration Name Role Phone Lee Fabian Primary Care Provider [phone] Allergies Active Allergy Reactions Criticality Noted Date Comments Lisinopril Other (See Comments) 09/12/2017 hyperkalemia Medications pravastatin (PRAVACHOL) 40 MG tablet Take 0.5 tablets (20 mg total) by mouth in the morning. Active pregabalin (LYRICA) 150 MG capsule Take 1 capsule (150 mg total) by mouth in the morning and 1 capsule (150 mg total) before bedtime. Active cyanocobalamin (vitamin B-12) 500 MCG tablet Take 1 tablet (500 mcg total) by mouth in the morning. Active acetaminophen (TYLENOL) 325 MG tablet Take 2 tablets (650 mg total) by mouth every 6 hours as needed for pain. 04/03/20 18 Active bumetanide (BUMEX) 2 MG tablet take 1 tablet by mouth once daily MAY TAKE AN ADDITIONAL ONE TABLET DAILY FOR WEIGHT GAIN 180 tablet 3 09/27/20 19 Active Additional Information Patient taking differently: 2 mg Oral 2 times daily, Morning, Bedtime,Once or twice daily, Reported on 09/05/2025 metoprolol ER (TOPROL-XL) 50 MG 24 hr tablet Take 1 tablet (50 mg total) by mouth in the morning and 1 tablet (50 mg total) before bedtime. Active empagliflozin (JARDIANCE) 25 mg Tab tablet Take 1 tablet (25 mg total) by mouth in the morning. Active glipiZIDE (GLUCOTROL) 5 MG tablet Take 2 mg by mouth 2 times a day before breakfast & dinner. Active aspirin 81 MG EC tablet Take 1 tablet (81 mg total) by mouth in the morning. 10/20/19 24 Active magnesium oxide 400 mg magnesium cap Take 1 capsule (400 mg total) by mouth in the morning. Active pantoprazole (PROTONIX) [address] tablet Take 1 tablet (40 mg total) by mouth in the morning. 06/15/20 24 Active amLODIPine (NORVASC) 10 MG tablet Take 0.5 tablets (5 mg total) by mouth in the morning. 05/24/20 24 Active amoxicillin (AMOXIL) 500 MG capsule Take 4 capsules (2,000 mg total) by mouth as needed. Active donepeziL (ARICEPT) 10 MG tablet Take 1 tablet (10 mg total) by mouth at bedtime. 08/05/20 25 Active ferrous sulfate 325 (65 FE) MG tablet Take 1 tablet (325 mg total) by mouth in the morning. Active levothyroxine (SYNTHROID, LEVOXYL) 175 MCG tablet Take 1 tablet (175 mcg total) by mouth every morning. Active memantine (NAMENDA) 5 MG tablet Take 1 tablet (5 mg total) by mouth in the morning and 1 tablet (5 mg total) before bedtime. Active metFORMIN (GLUCOPHAGE) 500 MG tablet Take 1 tablet (500 mg total) by mouth daily with breakfast. 09/30/19 21 Active MOUNJARO 7.5 mg/0.5 mL PnIj subcutaneous pen injector Inject 7.5 mg under the skin every 7 days. Mondays Active apixaban (ELIQUIS) 5 mg TabIndications:N onValvular Atrial Fibrillation,atr ial fibrillation Take 1 tablet (5 mg total) by mouth in the morning and 1 tablet (5 mg total) before bedtime. Please continue taking Eliquis for 3 months post ablation. Stop taking on 12/04/25. 09/05/20 25 Active apixaban (ELIQUIS) 2.5 mg Tab Take 1 tablet (2.5 mg total) by mouth in the morning and 1 tablet (2.5 mg total) before bedtime. 025 Discontin ued(Stop taking at Discharge ) Active Problems Problem Noted Date Diagnosed Date Arrhythmia 09/05/2025 Chronic kidney disease 07/07/2024 Chronic sciatica 07/07/2024 H/O carotid atherosclerosis 07/07/2024 Obesity 07/07/2024 Complete atrioventricular block 05/30/2024 Gastroesophageal reflux disease 05/30/2024 History of GI bleed 05/30/2024 Chronic diastolic heart failure 04/28/2024 Iron deficiency 04/28/2024 Vitamin D deficiency 04/28/2024 Stenosis of right carotid artery 12/29/2020 Overview (07/07/2024): Right carotid artery stenosis Atrial fibrillation 04/03/2018 H/O bariatric surgery 02/26/2018 S/P transmetatarsal amputation of foot, right RLS (restless legs syndrome) 10/09/2016 Presence of permanent cardiac pacemaker 02/06/20 16 Overview (07/07/2024): For complete heart block after ablation for atrial fibrillation Atypical atrial flutter 10/19/2015 Persistent atrial fibrillation 08/30/2015 Essential hypertension 08/30/2015 Type 2 diabetes mellitus 08/30/2015 Peripheral artery disease 08/30/2015 Charcot's joint of right foot 07/20/2015 History of atrial fibrillation 02/08/2011 Overview (07/07/2024): S/p multiple antiarrhythmic drugs and ablations, ablation 10/2015 resulted in complete heart block requiring pacemaker, and tamponade, s/p watchman procedure MERVIN (obstructive sleep apnea) 01/31/2011 Overview (07/07/2024): RBMG Polysomnogram: Date 08/06/2018; SE 90%; SM 92%; [...] 04/14/2008 Osteoarthritis of left knee 10/06/2006 Overview (07/07/2024): S/p TKR 05/2018 Hyperlipidemia 09/10/2006 Encounters Date Type Department Care Team Description 09/05/2025 8:15 AM EST Anesthesia Event [facility] [address] [place] [address] Roberto Gutierrez MD Due, Bradley, MD 09/05/2025 7:45 AM EST - 09/05/2025 10:25 AM EST Surgery [facility] [address] [place] [address] Wilfrid Holbrook MD PFA (BS) redo Rhythmia TATIANNA GA 09/05/2025 6:00 AM EST - 09/05/2025 4:12 PM EST Hospital Encounter [facility] [address] [place] [address] Wilfrid Holbrook MD Generic, Surgeon/Proced uralist Longstanding persistent atrial fibrillation (HCC) (Primary Dx); Cardiac arrhythmia, unspecified cardiac arrhythmia type; Persistent atrial fibrillation (HCC); History of atrial fibrillation Discharge Disposition: Home or Self Care 09/05/2025 Transcribe Orders Department of [facility]iology [facility] [address] [place] [address] Kelsea Duran NP Cardiac arrhythmia, unspecified cardiac arrhythmia type (Primary Dx) 08/15/2025 1:00 PM EST Office Visit Department of Cardiology [facility] [address] [place] [address] Awilda Haines NP [place], [place], [place] Atypical atrial flutter (CMS-HCC) (Primary Dx); Longstanding persistent atrial fibrillation (CMS-HCC); S/P ablation of atrial fibrillation; S/P ablation of atrial flutter; S/P Maze operation for atrial fibrillation; Presence of Watchman left atrial appendage closure device; Heart block; Presence of leadless cardiac pacemaker; Type 2 diabetes mellitus with foot ulcer, without long-term current use of insulin ([facility]-HCC); Below-knee amputation of left lower extremity, sequela; Bacterial endocarditis, unspecified chronicity; Presence of permanent cardiac pacemaker; MERVIN (obstructive sleep apnea) 08/15/2025 12:30 PM EST Lab [facility] [address] [place] [address] - [address] [place] [id number] Awilda Haines NP Preoperative clearance; Longstanding persistent atrial fibrillation ([facility]-HCC) 08/11/2025 Orders Only Department of Cardiology [facility] Cardiology [address] [place] [address] [address] [place] [address] Eric Larry MA Other cardiac arrhythmia (Primary Dx) from Last 3 Months Family History Medical History Relation Comments Diabetes Mother Arrhythmia Sister Diabetes Sister Relation Status Comments Mother Sister Social History Tobacco Use Types Packs/Day Years Used Date Smoking Tobacco: Former Cigarettes 0 Q uit: 04/29/2025 Smokeless Tobacco: Never Tobacco Cessation:Counseling Given: Not Answered Alcohol Use Standard Drinks/Week Comments Not Currently 5 (1 standard drink = 0.6 oz pur e alcohol) Sex and Gender Information Value Date Recorded Sex Assigned at Male 11/23/2018 4:04 PM EST Legal Sex Male 1:49 PM EDT Gender Identity Male 11/23/2018 4:04 PM EST Sexual Orientation Not on file Last Filed Vital Signs Vital Sign Reading Time Taken Comments Blood Pressure 149/83 09/05/2025 1:15 PM EST Pulse 95 09/05/2025 1:15 PM EST Temperature 36.6 C (97.9 F) 09/05/2025 11:30 AM EST Respiratory Rate 13 09/05/2025 1:15 PM EST Oxygen Saturation 92% 09/05/2025 12:30 PM EST Inhaled Oxygen Concentration - - Weight 129 kg (284 lb) 08/15/2025 11:37 AM EST Height 190.5 cm (6' 3 ) 08/15/2025 11:37 AM EST Body Mass Index 35.5 08/15/2025 11:37 AM EST Plan of Treatment Upcoming Encounters Date Type Department Care Team (Late st Contact Info) Description 12/21/2025 10:10 AM EDT Office Visit Department of Cardiology [facility] Cardiology [address] [place] [address] Wilfrid Holbrook MD [address] [place] [address] In Person with Physician Health Maintenance Due Date Last Done Comments SDM 1960 Depression Screening 1972 Hepatitis C Screening 1978 CT Colonography 2005 Colonoscopy 2005 FIT 2005 FOBT 2005 Sigmoidoscopy 2005 Diabetic Eye Exam 11/11/2017 11/11/2016, , 10/17/2006 Pneumococcal Vaccine: 50+ Years (3 of 3 - PCV) 01/05/2018 01/05/2017, 11/11/2015 Medicare Initial AWV G0438 06/29/2019 PSA 12/18/2023 12/17/2021 Prostate Cancer Screening 12/18/2023 Urine Microalbumin 04/14/2025 04/14/2024, 11/28/2017 COVID-19 Vaccine ( season) 2025 07/08/2023, 09/10/2022, 03/11/2022, Additional history exists Influenza Vaccine (#1) 2025 , 07/08/2023, 07/18/2022, Additional history exists Lipid Panel 08/20/2025 08/20/2024, 06/30, 04/28/2024, Additional history exists Hemoglobin A1c 11/30/2025 06/02/2025, 03/30, 09/03/2024, Additional history exists Blood Pressure 09/05/2026 09/05/2025 Colorectal Cancer Screening 07/10/2028 Multitarget Stool DNA (Cologuard) 07/10/2028 07/10/2025, 07/10/2025 DTaP,Tdap,and Td Vaccines (3 - Td or Tdap) 04/09/2030 04/09/2020, 12/16/2017 Zoster Vaccine Completed 04/13/2018, 12/16/2017 Meningococcal B Vaccines Aged Out No longer eligible based on patient's age to complete this topic Meningococcal Vaccines Aged Out No lo nger eligible based on patient's age to complete this topic Medical Devices Implanted Type Area Dioramist Device Identifier Shelf Expiration Date Model / Serial / Lot 5076-52 Capsure Fix Novus ([id number]) - [id number] Implanted:Qty : 1 on 10/24/2015 by Wilfrid Holbrook MD at [facility] Lead [employer] 09/11/2017 5076-52 / [id number] 5076-58 Capsure Fix Novus (12571) - [id number] Implanted:Qty : 1 on 10/24/2015 by Wilfrid Holbrook MD at [facility] Lead [employer] 09/07/2017 5076-58 / [id number] / [id number] Advisa Mri (Newest) ([id number]) - [id number] Implanted:Qty : 1 on 10/23/2015 by Wilfrid Holbrook MD at [facility] Pacemaker [employer] 02/23/2017 [id number] / [id number] / Watchman 30mm Dilma Closure Device ([id number]) - [id number] Implanted:Qty : 1 on 04/03/2018 by Wilfrid Holbrook MD at [facility] [employer] [id number] 08/12/2020 -[id number] / / [id number] Procedures Procedure Name Priority Date/Time Associated Diagnosis Comments POCI GLUCOSE Routine 09/05/2025 11:51 AM EST ECHO TRANSESOPHAGEAL (TATIANNA) Routine 09/05/2025 10:43 AM EST ELECTROPHYSIOLOGY Routine 09/05/2025 10:43 AM EST POCI ACTIVATED CLOTTING TIME Routine 09/05/2025 10:24 AM EST POCI ACTIVATED CLOTTING TIME Routine 09/05/2025 10:10 AM EST POCT ACTIVATED CLOTTING TIME Routine 09/05/2025 9:57 AM EST POCI ACTIVATED CLOTTING TIME Routine 09/05/2025 9:52 AM EST POCI ACTIVATED CLOTTING TIME Routine 09/05/2025 9:32 AM EST ANESTHESIA PERIPHERAL IV LINE Routine 09/05/2025 8:40 AM EST ANESTHESIA INTUBATION Routine 09/05/2025 8:29 AM EST POCI GLUCOSE Routine 09/05/2025 7:12 AM EST ECG 12-LEAD Routine 08/15/2025 11:32 AM EST Longstanding persistent atrial fibrillation (CMS-HCC) Procedure Note - 08/15/2025 11:32 AM ESTThis note is in progress. Atrial-sensed ventricular-paced rhythm Abnormal ECG When compared with ECG of 07-Jan-2025 10:56, Vent. rate has increased by 10 bpm BASIC METABOLIC PANEL Routine 08/15/2025 11:22 AM EST Preoperative clearance Longstanding persistent atrial fibrillation (CMS-HCC) CBC Routine 08/15/2025 11:22 AM EST Preoperative clearance Longstanding persistent atrial fibrillation (CMS-HCC) HEMOGLOBIN A1C Routine 04/04/2018 6:24 AM EDT from Last 3 Months or Most Recently Relevant to Health Maintenance Results * (ABNORMAL) POCT Glucose (09/05/2025 11:51 AM EST) Only the most recent of2 resultswithin the time period is included. Glucose, POC 149(H) 70 - 118 mg/dL 09/05/2025 11:52 AM EST [facility] Blood 09/05/2025 11:5 1 AM EST 09/05/2025 11:52 AM EST us Surgeon/Proceduralist Generic POCT ORDERABLES - DEVICE Final Result Performing Organization Address City/State/[facility] Co de Phone Number [facility] [address] [place] [phone] * A-FIB PFA GA TATIANNA (REDO) (09/05/2025 10:43 AM EST) Anatomical Region Laterality Modality Heart Cardiac Electrop hysiology Narrative 09/05/2025 3:17 PM EST Table formatting from the original result was not included. Images from the original result were not included. Cardiac Arrhythmia Procedure Report [facility] [address] [place] [id number] Voice: [phone] Patient Information Patient Name: Blas Crowe Sr. Study Date: 09/05/2025 Date of : 1960 Age: 64 y.o. Gender: male Atrial Fibrillation PFA Ablation Procedure Report Staff Attending Painter Airbrush: Wilfrid Holbrook MD Electrophysiology Fellow: Liza Duncan MD Referring Physician: Vitaliy Fields MD Indications: This 64 y.o. year old male patient with symptomatic longstanding persistent atrial fibrillation s/p three ablations at [facility], convergent ablation in 09/2015 with anterior mitral isthmus line and CS ostium ablation, PAD s/p BKA, complete heart block s/p MDT dual chamber chamber but was explanted due to bacteremia and Micra AV implant in 10/2024 is referred for electrophysiologic evaluation and AF ablation. The CHADS-VASc score is 4. The left ventricular ejection fraction was 60% but around 40% on TATIANNA today and the patient is NHYA Class 2. Patient has been on uninterrupted anticoagulation. Atrial Fibrillation Ablation Procedure Summary: Informed consent was obtained and the patient was brought to the EP lab in the fasting state and underwent induction of general anesthesia and intubation. TATIANNA was performed which demonstrated no thrombus in the left atrial appendage. All vascular sites were prepped and draped in the usual sterile fashion and the Seldinger technique under US guidance was used to catheterize the RFV and LFV with multipolar electrode catheters, which were positioned in the appropriate intracardiac sites under fluoroscopic guidance (see catheter list). Right and left atrial pacing and recording were performed. Continuous pulse oximetry and cuff BP monitoring were performed. Intracardiac echo was used to image the left atrium and left atrial appendage in multiple views. No thrombus was observed. Transseptal Access: A single transseptal atrial puncture was performed using fluoroscopic and intracardiac echocardiographic guidance. A bolus injection of heparin was administered prior to transseptal puncture, and the Activated Clotting Time maintained between 300 and 350 secs with additional boluses q20-30 minutes as necessary. A dilator and sheath were dragged from the SVC over the wire along the septum until a sudden leftward displacement was observed. Engagement of the fossa ovalis was confirmed by the inter-atrial septal tenting seen on echocardiogram. A transseptal RF Needle was advanced into the left atrium and its position confirmed with fluoroscopy / echocardiography. The dilator and sheath were advanced carefully over the wire into the body of the left atrium and the dilator and needle were removed. Supplies Summary: Category Item Access Site Catheter Site Diagnostic Catheter Sports MatchMaker 7F Livewire Duodeca Large Curl RFV RA / CS Transseptal Access Bethel 98cm RF Transseptal Needle + j-wire RFV RA -> LA Steerable Sheaths Sports MatchMaker 13F Agilis Steerable Sheath RFV RA -> LA Mapping Catheters [place] Sci- Deandre Mapping Catheter RFV LA / RA Ablation Catheters [place] Sci- Farawave 2.0- 31mm- PFA Ablation Catheter RFV LA ICE Catheters Sports MatchMaker ViewFlex Xtra ICE Catheter LFV RA / RV Patient presented to lab today in atrial tachycardia with variable conduction block, intermittent pacing from Micra leadless pacemaker. After duodeca catheter was inserted, the electrograms showed almost simultaneous HRA and CS activation with cycle length around 290 ms. Entrainment mapping suggested left atrial origin of tachycardia with distal CS entrainment showed concealed fusion. LA Map: A high definition mapping catheter was advanced into the left atrium and used to create a 3D shell representing the left atrium and pulmonary veins with the use of [facility] [employer] 3D mapping system. The voltage mapping showed all the pulmonary veins and posterior wall remained isolated. The activation mapping showed there was counterclockwise perimitral flutter propagating across the previously created anterior mitral isthmus line close to the roof. Pulmonary Vein Isolation and anterior mitral isthmus line: The FaraWave PFA Ablation catheter was advanced into the anterior right superior pulmonary vein where pulsed field applications were delivered for 2.5 seconds at 2kV setting to extend the previous isolation level to antrum and septal side in basket configuration, followed by reposition of the catheter in flower configuration and delivery of additional pulses at anterior left atrium. The tachycardia was terminated while ablating the anterior left atrium. Post-ablation mapping was performed which showed there were still leaks across the anterior mitral isthmus line at lower portion. Further ablations were performed at anterior left atrium to reinforce the ablation line to the mitral annulus. Repeat mapping showed conduction block across the line while pacing at HRA with wide split potentials on the line (185 ms apart). Additional Ablation: CTI Ablation line: FaraWave Catheter was then placed in flower configuration on the CTI. The catheter was well positioned with decent contact on ICE images. Lesions were delivered resulting in bidirectional block across the CTI which was confirmed by high definition mapping. lntracardiac echo was performed in the beginning and end of the procedure showing no pericardial effusion. At the end of the procedure all catheters were removed and vascular hemostasis was achieved using the Vascade MVP closure device, Jacob Perclose closure device, and Manual pressure. The patient left the laboratory in a stable condition. Estimated blood loss: minimal. Sharps count: correct. There were no complications. No specimens were removed during the procedure. Baseline Measurement: Not applicable due to ventricular pacing rhythm Case Summary: Total fluoro time, absorbed radiation and DAP dose were: 21.4 Min and 135 mGy 3361.52 Gym Total PFA pulses delivered: 31 Total time of RF delivery: 0 Min Total procedure time (access to hemostasis): 125 Min Estimated blood loss: Minimal Contrast used: 0 ml lntraprocedural complications: None Post-Procedure Diagnosis: Durable pulmonary vein isolation from previous ablations Durable posterior wall isolation from previous ablations Counterclockwise perimitral atypical atrial flutter from reconnected anterior mitral isthmus line status post successful anterior mitral isthmus pulse field ablations Successful extension from right superior pulmonary vein isolation level to antrum Successful cavotricuspid isthmus ablation with bidirectional block across the line Recommendations: Resume anticoagulation for 3 months (Watchman present) Bed rest for 2 hours than discharge home later today Antiarrhythmic Medications: none Follow-up with Dr. Holbrook in 3 months This report was electronically authenticated by: Wilfrid Holbrook MD Date: 09/05/2025 Time: 8:37 AM Attending Painter Airbrush (Present during the entire procedure) us Wilfrid Holbrook MD CV ELECTROPHYSIOLOGY ORDERABLES Final Result * ECHOCARDIOGRAM TATIANNA (09/05/2025 10:43 AM EST) Anatomical Region Laterality Modality Heart Cardiac Electrop hysiology 09/05/2025 8:04 AM EST Narrative 09/05/2025 11:20 AM EST + + : : : : Echocardiography Laboratory : : +--+ [address] [place] [address] Road : : +--+ [place] [address] : : : : : : + + Transesophageal Echocardiogram Name: BLAS CROWE, SR. Study Date: 09/05/2025 08:04 AM Ordering Physician: WILFRID HOLBROOK, : 1960 Performed By: MARLIN DUCKWORTH MD Patient Location: [facility] Age: 64 yrs Gender: Male History: R/O CLOT Height: 75 in Weight: 284 lb BSA: 2.5 m2 HR: 103 BP: 126/77 mmHg Procedure/Location The TATIANNA was performed in the Electrophysiology Lab. Before this TATIANNA procedure was performed, the risks and benefits were reviewed with the patient by myself or my colleague. The TATIANNA was performed in conjunction with AF ablation immediately to follow. The procedure was performed with general anesthesia as directed by the anesthesia staff. There were no immediate complications. Interpretation Summary 1. Mildly reduced left ventricular function estimated at 40% in a global pattern 2. The right ventricle is mildly dilated and mildly hypokinetic 3. A Watchman occluder device is well seated within the left atrial appendage. There is no evidence of overlaying thrombus, and no evidence of residual communication around the device by color Doppler 4. Trivial pericardial effusion Left Ventricle Overall left ventricular systolic function is mildly reduced. Estimated ejection fraction = 40%. The left ventricular wall motion is normal. Right Ventricle The right ventricle is mildly dilated. The right ventricular systolic function is mildly reduced. Atria A Watchman occluder device is well seated within the left atrial appendage. There is no evidence of overlaying thrombus, and no evidence of residual communication around the device by color Doppler. There are no right atrial masses. Mitral Valve Mitral leaflet thickness and mobility are normal. There is trace mitral regurgitation. Tricuspid Valve The tricuspid valve leaflets are thin and pliable. There is trace tricuspid regurgitation. Aortic Valve The aortic valve is trileaflet. The aortic valve opens well. Trace aortic regurgitation. Pulmonic Valve The pulmonic valve is not well seen, but is grossly normal. Great Vessels No mobile atheromatous plaques noted in ascending aorta. Pericardium/Pleura Trivial amount of pericardial fluid is incidentally noted. Procedure Note Marlin Duckworth MD - 09/05/2025 + + :: :: Echocardiography Laboratory :: +--+ [address] [place] [address] Road :: +--+ [place] [address] :: :: :: + + Transesophageal Echocardiogram Name: BLAS CROWE, SR. Study Date: 09/05/2025 08:04 AM Ordering Physician: WILFRID HOLBROOK, : 1960 Performed By: MARLIN DUCKWORTH MD Patient Location: [facility] Age: 64 yrs Gender: Male History: R/O CLOT Height: 75 in Weight: 284 lb BSA: 2.5 m2 HR: 103 BP: 126/77 mmHg Procedure/Location The TATIANNA was performed in the Electrophysiology Lab. Before this TEEprocedure was performed, the risks and benefits were reviewed with the patient tiffanie or my colleague. The TATIANNA was performed in conjunction with AF ablation immediately to follow. The procedure was performed with general anesthesiaas directed by the anesthesia staff. There were no immediate complications. Interpretation Summary 1. Mildly reduced left ventricular function estimated at 40% in a global pattern 2. The right ventricle is mildly dilated and mildly hypokinetic 3. A Watchman occluder device is well seated within the left atrialappendage. There is no evidence of overlaying thrombus, and no evidence of residual communication around the device by color Doppler 4. Trivial pericardial effusion Left Ventricle Overall left ventricular systolic function is mildly reduced. Estimated ejection fraction = 40%. The left ventricular wall motion is normal. Right Ventricle The right ventricle is mildly dilated. The right ventricular systolicfunction is mildly reduced. Atria A Watchman occluder device is well seated within the left atrialappendage. There is no evidence of overlaying thrombus, and no evidence of residual communication around the device by color Doppler. There are no rightatrial masses. Mitral Valve Mitral leaflet thickness and mobility are normal. There is trace mitral regurgitation. Tricuspid Valve The tricuspid valve leaflets are thin and pliable. There is tracetricuspid regurgitation. Aortic Valve The aortic valve is trileaflet. The aortic valve opens well. Traceaortic regurgitation. Pulmonic Valve The pulmonic valve is not well seen, but is grossly normal. Great Vessels No mobile atheromatous plaques noted in ascending aorta. Pericardium/Pleura Trivial amount of pericardial fluid is incidentally noted. Wilfrid Holbrook MD CV ECHO ORDERABLES Final Result * (ABNORMAL) POCT Activated clotting time (ACT) (09/05/2025 10:24 AM EST) Only the most recent of4 resultswithin the time period is included. ACT, POC >400(H) 90 - 170 s 09/06/2025 9:00 AM EST [facility] Blood 09/05/2025 10:2 4 AM EST 09/06/2025 9:00 AM EST us Surgeon/Proceduralist Generic POCT ORDERABLES - DEVICE Final Result [address] [address], * POCT Activated clotting time (ACT) (09/05/2025 9:57 AM EST) POCT ACT-C 287 seconds Blood Result [facility] Historical Provider POINT OF CARE TEST ORDERA BLES Final Result * AN BLOCK PROCEDURE FOR NEW LDA (09/05/2025 8:40 AM EST) Roberto Cedeno MD - 09/05/2025 8:40 AM EST Roberto Gutierrez MD 09/05/2025 9:01 AM Peripheral IV Placement Date/Time: 09/05/2025 8:40 AM Performed by: Roberto Gutierrez MD Authorized by: Roberto Gutierrez MD Placement Needle size: 18 G Attempts: 1 Local anesthetic: none Site prep: chlorhexidine Laterality: left Location: hand Technique: anatomical landmarks Result [facility] Roberto Gutierrez MD [place] ANESTHESIA Final Resul t * AN ELECTIVE ENDOTRACHEAL AIRWAY (09/05/2025 8:29 AM EST) Jaun Wilson MD - 09/05/2025 8:29 AM EST Jaun Bergman MD 09/05/2025 8:43 AM Airway Date/Time: 09/05/2025 8:29 AM Reason: elective General Information and Staff Patient location during procedure: OR Performed by: Jaun Bergman MD Authorized by: Roberto Gutierrez MD Indications and Patient Condition Indications for airway management: anesthesia Preoxygenated: yesPatient position: sniffing Mask difficulty assessment: 0 - not attempted Final Airway Details Final airway type: endotracheal airway Successful airway: ETT Cuffed: yes Successful intubation technique: direct laryngoscopy and video laryngoscopy Adjuncts used in placement: intubating stylet Endotracheal tube insertion site: oral Blade: GlideScope Blade size: #4 ETT size (mm): 8.0 Cormack-Lehane Classification: grade I - full view of glottis Placement verified by: capnometry minimum occlusive pressure Measured from: teeth ETT to teeth (cm): 22 Number of attempts at approach: 1 Dentition unchanged Additional Comments Uneventful RSI with elective videdo laryngoscopy. ETT passed easily through cords. Atraumatic intubation, dentition identical to preoperative exam Roberto Gutierrez MD RESPIRATORY CARE ORDERABLES Final Result * (ABNORMAL) CBC (08/15/2025 11:22 AM EST) [facility] WBC 8.01 4.00 - 11.00 K/uL 08/15/2025 11:55 AM [facility] RBC 4.02(L) 4.50 - 5.90 M/uL 08/15/2025 11:55 AM [facility] Hemoglobin 13.2(L) 13.8 - 17.4 g/dL 08/15/2025 11:55 AM [facility] Hematocrit 40.7(L) 41.0 - 51.0 % 08/15/2025 11:55 AM [facility] MCV 101(H) 80 - 96 fL 08/15/2025 11:55 AM [facility] RDW 14.3 11.6 - 14.6 % 08/15/2025 11:55 AM [facility] Platelet Count 242 150 - 450 K/uL 08/15/2025 11:55 AM [facility] Blood Venipuncture / Unknown 08/15/2025 11:22 AM EST 08/15/2025 11:46 AM EST us Nohelia PATTON LAB BLOOD ORDERABLES Final Resu lt Performing Organization Address City/State/[facility] [place] [address] * (ABNORMAL) Basic Metabolic Panel (08/15/2025 11:22 AM EST) [facility] Sodium 139 135 - 146 mmol/L JACOB [id number] 08/15/2025 12:44 PM [facility] Potassium 4.5 3.4 - 5.2 mmol/L JACOB [id number] 08/15/2025 12:44 PM [facility] Comment:Plasma sample Chloride 108 98 - 110 mmol/L JACOB [id number] 08/15/2025 12:44 PM [facility] Total CO2/Bicarbonate 21(L) 24 - 32 mmol/L JACOB [id number] 08/15/2025 12:44 PM [facility] Anion Gap 10 2 - 15 mmol/L JACOB [id number] 08/15/2025 12:44 PM [facility] Anion Gap [address] 08/15/2025 12:44 PM [facility] BUN 47(H) 7 - 24 mg/dL [address] 08/15/2025 12:44 PM [facility] Creatinine, Blood 1.78(H) 0.50 - 1.30 mg/dL [address] 08/15/2025 12:44 PM [facility] Glucose, Blood 204(H) 70 - 118 mg/dL [address] 08/15/2025 12:44 PM [facility] Calcium 8.6 8.5 - 10.5 mg/dL [address] 08/15/2025 12:44 PM [facility] Estimated GFR (MDRD) 39(L) >=60 mL/min/BS A [address] 08/15/2025 12:44 PM [facility] Comment:This Cr-based equati on underestimates GFR in patients with increased muscle mass. Order CYSTATIN C WITH GFR ESTIMATE, [id number], if additional evaluation of renal function is needed. Blood Venipuncture / Unknown 08/15/2025 11:22 AM EST 08/15/2025 11:46 AM EST us Nohelia PATTON LAB BLOOD ORDERABLES Final Resu lt Performing Organization Address City/State/[facility] Co de Phone Number [place] [phone] * (ABNORMAL) Hemoglobin A1C (04/04/2018 6:24 AM EDT) Hemoglobin A1C 5.8(H) 4.6 - 5.6 % 04/04/2018 9:06 AM EDT [facility] Comment: 4.6 to 5.6% Normal 5.7 to 6.4% Pre-diabetes, increased risk for diabetes >= 6.5% Diabetes mellitus Blood specimen (specimen) Venipuncture / Unknown 04/04/2018 6:24 AM EDT 04/04/2018 7:52 AM EDT us Riley Keane NP LAB BLOOD ORDERABLES Final R esult [address] [address] from Last 3 Months or Most Recently Relevant to Health Maintenance Insurance [employer] MEDICARE ADVANTAGE Advance Directives * Full Code (Latest Code Status on File) Date Activated Date Inactivated Comments 09/05/2025 11:12 AM Question Answer Comments Discussed with/per: Patient * Full Code Date Activated Date Inactivated Comments 09/05/2025 11:03 AM 09/05/2025 11:12 AM Question Answer Comments Discussed with/per: Patient * Full Code Date Activated Date Inactivated Comments 04/03/2018 1:10 PM 05/22/2018 7:38 AM * Full Code Date Activated Date Inactivated Comments 10/20/2015 4:13 AM 10/28/2015 3:06 PM * Full Code Date Activated Date Inactivated Comments 10/19/2015 9:03 AM 10/20/2015 4:13 AM Healthcare Agents on File Name Relationship Healthcare Agent Relationshi p Communication Blas Crowe [facility] Health Care Agent Care Teams Professor Of Public Administration Relationship Specialty Start Date End Date Lee Fabian [address] [place] [address] PCP - General 01/10/25
--- OUTSIDE RECORDS SUMMARY | 2025-09-19 18:10 | XMS_ITS | Encounter Summary ---
Author Organization [facility] Address [address] [place] [address] Care Team Providers Care Kiln Car Repairer Name Role Phone Lee Fabian MD Primary Care Provider [phone] Encounter Details Date Type Department Care Team (Late st Contact Info) Description 09/07/2025 Results Follow-Up Endocrinology - [address] [address] Geeta Person PA [address] [facility] [address] Social History Tobacco Use Types Packs/Day Years [...] 10:20 AM EST Office Visit Endocrinology - [place] [address] [place] [address] Destinee Reddy MD [address] [place] [address] 03/14/2026 2:40 PM EDT Office Visit Gastroenterology - [address] [address] Fatou Weaver PA [address] [address] documented as of this encounter Goals Goal [...] documented as of this encounter Care Teams Kiln Car Repairer Relationship Specialty Start Date End Date Lee Fabian MD [address] [place] [address] PCP - General Internal Medicine 08/03/24 documented as of this encounter
--- OUTSIDE RECORDS SUMMARY | 2025-09-19 18:10 | XMS_ITS | Clinical Summary ---
Author Organization [facility] Address [address] [place] [address] Care Team Providers Care On Air Host Name Role Phone Lee Fabian MD Primary Care Provider Unavail able Vitaliy Fields MD Unavailable [phone] Dallas Camejo MD Unavailable [phone] Rolando Lopez MD Unavailable [phone] Cesar Fair MD Unavailable Daisy Her PT Unavailable [phone] Ena Mtz MD Unavailable Toni Rae MD Unavailable [phone] System, Provider Not In Unavailable Unavaila [...] amputation of left lower extremity, initial encounter ([facility]) BELOW KNEE PROSTHESIS S/P LEFT BKA [...] BLOOD SUGAR TWICE DAILY 02/11/20 25 Active iWattTouch Ultra Test test strip 1 test strip by Other (specify) route as needed. 03/02/20 25 Active Lancets (iWattTouch Delica Plus [id number]) Misc USE TO CHECK BLOOD SUGAR TWICE [...] (total knee replacement), right LEFT PROSTHETIC SOCKS [facility] FAX: [phone] 1 each 06/20/20 Active Active Problems Problem [...] IV ceftriaxone finished 12/28/24. Follows with [facility] ID. ? Repeat echo CKD (chronic kidney [...] nephrotoxic medications. Follows with Dr. Lopez in [place]. See last note 06/07/24. Assessment & Plan (09/03/2024 9:20 AM EST): Creatinine 1.4 GFR 55. Avoid nephrotoxic medications. Follows with Dr. Lopez in [place]. See last note 06/07/24. Hyperlipidemia Assessment & [...] 8:15 AM EST Office [place] [facility] [place] [address] Manuel Mesa MD S/P TKR (total knee replacement), right (Primary Dx) 06/28/2025 8:15 AM EDT Office [place] [facility] [place] [address] Manuel Mesa MD S/P TKR (total knee replacement), right (Primary Dx) from Last 3 Months Social History Tobacco Use Types Packs/Day Years Used Date Smoking Tobacco: Former Cigarettes 1 30 1 977 - 2003 Smokeless Tobacco: Never Tobacco Cessation:Counseling Given: Not Answered Comments:Cigar smoking - quit 04/11/25; cig smoking was off and on Alcohol Use Standard Drinks/Week Comments Yes 21 (1 standard drink = 0.6 oz pure alcohol) 2 drinks/5-7 nights/advised to stop 2 weeks before surgery [facility] Utilities Answer Date Recorded In the past 12 months has e [employer] Parking, gas, oil, or water company threatened to [...] any time in the past 12 m [facility], were you homeless or living [...] 8:45 AM EST [facility] [address] [place] [address] Manuel Mesa MD [address] [place] [address] [address] [place] [address] Health Maintenance Due Date Last Done Comments [...] 2025 07/08/2023, 08/15/2021, 01/16/2021, Additional history exists Hemoglobin A1C 11/30/2025 06/02/2025, 03/30, 03/02/2025, Additional history exists Creatinine with GFR 05/17/2026 05/17/2025, 05/16/2025, 04/22/2025, Additional history exists Chronic Controlled Substance User PDMP Review Discontinued 04/06/2025, 09/01/2024 Hepatitis B Vaccines Aged Out No long er eligible based on patient's age to complete this topic Medical Devices Implanted Type Area Supplier Manager Device Identifier Shelf Expiration Date Model / Serial / Lot [id number] Cement [employer] R 40gm Grn - [id number] Implanted:Qty : 1 on 05/16/2025 by Manuel Mesa MD at [facility] Cement Right: Knee [employer] [id number] 09/28/2029 [id number] / / [id number] Cement [employer]c R 40gm Grn - [id number] Implanted:Qty : 1 on 05/16/2025 by Manuel Mesa MD at [facility] Cement Right: Knee [employer] [id number] 09/28/2029 [id number] / / [id number] Component Femoral 10 Std Knee Right Crcte Rtn Cement Persona - [id number] Implanted:Qty : 1 on 05/16/2025 by Manuel Mesa MD at [facility] Joint Prosthesis Right: Knee [employer] [id number] 01/31/2035 [id number] / / [id number] Insert Articular 8-11 G-H 11mm Knee Right Vivacit-E Persona - [id number] Implanted:Qty : 1 on 05/16/2025 by Manuel Mesa MD at [facility] Joint Prosthesis Right: Knee [employer] [id number] 06/07/2029 [id number] / / [id number] 0d Keel Right G Tibia Implanted:Qty : 1 on 05/16/2025 by Manuel Mesa MD at [facility] Joint Prosthesis Right: Knee [employer] 10/08/2034 [id number] / / [id number] Pacemaker Cardiac Micra Av2 Ldls Bndl - [id number] Implanted:Qty : 1 on 11/17/2024 by Rui Pabon MD at [facility] Pacemaker Left: Chest [employer] [place] [id number] 02/09/2026 [id number] / [id number] / Explanted Type Area Supplier Manager Device Identifier Shelf Expiration Date Model / Serial / Lot 5076-52 Lead Pacing 52cm 6.2fr 2mm 10mm Spc Sm Straight Atr Vntrc- 6 Implanted:09/30 (Quantity not on file) Explanted:Qty: 1 on 11/17/2024 by Rui Pabon MD Lead [employer] [place] 5076-52 / [id number] / 5076-58 Lead Pacing 58cm 6.2fr 2mm 10mm Spc Sm Straight Atr Vntrc- 6 Implanted:09/30 (Quantity not on file) Explanted:Qty: 1 on 11/17/2024 by Rui Pabon MD Lead [employer] [place] 5076-58 / [id number] / [id number] Pacemaker Cardiac Advisa Dr Debbie Chairez 2 Chamber Digital- [id number] Implanted:09/30 (Quantity not on file) Explanted:Qty: 1 on 11/17/2024 by Rui Pabon MD Pacemaker [employer] IN [id number] / [id number] / Procedures Procedure Name Priority Date/Time Associated [...] Sedimentation Rate (ESR) (07/04/2025 3:16 PM EDT) Erythrocyte Sediment Rate (ESR) 11 < OR = 20 mm/h [facility] Kitchen Blood Blood specimen / Unknown 07/04/2025 3:16 PM EDT 07/04/2025 3:17 PM EDT [facility] - 07/05/2025 9:04 AM EDT FASTING:NO FASTING: NO us Manuel Mesa MD LAB BLOOD ORDERABLES [facility] al Result [employer] [address] [place] [phone] * (ABNORMAL) C-REACTIVE PROTEIN (07/04/2025 3:16 PM EDT) C-Reactive Protein 20.6(H) <8.0 mg/L [employer] Kitchen Blood Blood specimen / Unknown 07/04/2025 3:16 PM EDT 07/04/2025 3:17 PM EDT [facility] - 07/05/2025 9:04 AM EDT FASTING:NO FASTING: NO us Manuel Mesa MD LAB BLOOD ORDERABLES Fin al Result [employer] [address] [place] [phone] * (ABNORMAL) Basic Metabolic Panel (05/17/2025 5:27 AM EDT) Glucose 157(H) 65 - 99 mg/dL 05/17/2025 6:19 AM [facility] Comment:Fasting: <100 mg/dL, Non-Fasting: <200 mg/dL (ADA 2004) Blood Urea Nitrogen (BUN) 29(H) 8 - 21 mg/dL 05/17/2025 6:19 AM [facility] Creatinine 1.6(H) 0.5 - 1.3 mg/dL 05/17/2025 6:19 AM [facility] eGFR 48(L) >59 05/17/2025 6:19 AM [facility] Comment:CKD-EPI (2020) in mL /min/1.73 sq meters. Sodium 138 136 - 145 mmol/L 05/17/2025 6:19 AM [facility] Potassium 3.9 3.4 - 5.3 mmol/L 05/17/2025 6:19 AM [facility] Chloride 104 98 - 107 mmol/L 05/17/2025 6:19 AM [facility] CO2 24 22 - 33 mmol/L 05/17/2025 6:19 AM [facility] Anion Gap 10 7 - 17 05/17/2025 6:19 AM [facility] Calcium 8.7 8.7 - 10.5 mg/dL 05/17/2025 6:19 AM [facility] BUN/Creatinine Ratio 18 10.0 - 25.0 Ratio 05/17/2025 6:19 AM [facility] Blood Blood specimen / Unknown 05/17/2025 5:27 AM EDT 05/17/2025 5:47 AM EDT Alice Dobbins PA-C LAB BLOOD [place]AB[place] [address], [place] [address] * (ABNORMAL) Hemoglobin A1c with Estimated Average Glucose (04/22/2025 2:35 PM EDT) Hemoglobin A1C 7.4(H) <5.7 % 04/22/2025 9:15 PM EDT [facility] Comment: A1c% Interpretation 5.7 - 6.0 Increase risk of diabetes 6.1 - 6.4 Higher risk of diabetes > or = 6.5 Consistent with diabetes Diabetes Care, 33(Supp 1):S1-S61, 2010 Estimated Average Glucose 166 mg/dL 04/22/2025 9:15 PM EDT [facility] Blood Blood specimen / Unknown 04/22/2025 2:35 PM EDT 04/22/2025 8:36 PM EDT Gilda Collier COACH PROFESSIONAL [employer]THLETES LAB BLOOD ORDERABLES Final R esult Performing Organization Address [facility] [place] [address], [place] [address] from Last 3 Months or Most Recently Relevant to Health Maintenance Insurance [place] MEDICARE [facility] MEDICARE [facility] MEDICARE Advance Directives Documents on File Type Date Recorded Patient Job Specification Writer Expl anation Advance Directive-Scan 11/10/2024 Revoc ation of Health Care Proxy 11/10/24 Advance Directive-Scan 11/10/2024 Healt h Care Proxy [facility] 11/10/24 * Full Code (Latest Code Status [...] Healthcare Agent Relationship Communication Luca(SON) Sebastien Healthcare media sales representative 1. Health Care Job Specification Writer [facility] Healthcare media sales representative 1. Health Care Job Specification Writer Care Teams On Air Host Relationship Specialty Start Date End Date Lee Fabian MD PCP - General Internal Medicine 09/02/24 Vitaliy Fields MD [address] [address] Cardiovascular Disease 09/02/24 Dallas Camejo MD [address] [place] [address] Surgery, Orthopedic 09/02/24 Rolando Lopez MD [address] Transplant - [address] [place] [address] Physician Nephrology 09/02/24 Cesar Fair MD 85 [facility] [address] [place] [address] Surgery, Cardiac 11/08/24 Daisy Her, PT 85 [facility] [address] [place] [address] Eyelet Machine OperatorHorticultural Worker Medicine and Rehabilitation 11/18/24 Ena Mtz MD [address] [place] [address] Infectious Disease 04/12/25 Toni Rae MD [address] [address] Surgery, Vascular 04/12/25 System, Provider Not In [address] [address] 04/12/25 Manuel Mesa MD [address] [place] [address] Physician Surgery, Orthopedic 04/19/25
== END 2025-09-19 15:35 | disposition home or self-care (01) ==
LOC: HO.HCS 14:55
PROVIDERS: PCP Internal Medicine; Visit Provider Nurse Practitioner Family
DX: I48.0 Paroxysmal atrial fibrillation (principal); I50.30 Unspecified diastolic (congestive) heart failure; Z95.818 Presence of other cardiac implants and grafts; G47.33 Obstructive sleep apnea (adult) (pediatric); Z95.0 Presence of cardiac pacemaker
CPT/HCPCS: 93010; 99214; G2211

== ENCOUNTER → 2025-09-19 14:54 | Outpatient (BNVA) | payer MEDICARE, SELFPAY | PROVIDERS: PCP Internal Medicine; Visit Provider Nurse Practitioner Family | DX: I48.0 Paroxysmal atrial fibrillation (principal); I50.30 Unspecified diastolic (congestive) heart failure; G47.33 Obstructive sleep apnea (adult) (pediatric); Z99.89 Dependence on other enabling machines and devices; Z95.0 Presence of cardiac pacemaker; Z95.818 Presence of other cardiac implants and grafts | CPT/HCPCS: 93005; 99212 ==